=== PATIENT | female | born 1950 | race Caucasian/White ===

== ENCOUNTER → 2016-07-16 | Outpatient (CLI) | payer MEDICAID ==
[~2016-07-16] MED LIST: ALBU8.5H2 IH; AMIT25TA9 PO; AMLO10TA PO; AMLO10TA4 PO; AMLO10TA82 PO; ASPI-875 PO; ASPI-892 PO; ASPI-906 PO; ATOR40TA PO; BIOT10TA2 PO; BIOTIN 1000MCG PO; CIPR500T78 PO; COMMODE; CPR500T PO; ESTROGEN PO; FEXO-45 PO; FISH1CAP15 PO; FLUT1DIS28 IH; FURO20TA4 PO; GABA400C PO; GABA600T2 PO; GBPN300C PO; GBPN400C PO; HYDR1TAB66 PO; INSU100I23 SQ; INSU100V5 SQ; IRON150C13 PO; IRON150C3 PO; LEVE1U SQ; LIRA0.6P SQ; LISI1TAB10 PO; LOSA50TA36 PO; MELA1TAB20 PO; METO-333 PO; METO25TA2 PO; METO50TA2 PO; MILN100T PO; MULT-974 PO; MV,C400T3 PO; NFBIOT1000 PO; OMEG-9 PO; OXYC1TAB25 PO; PANT40TA PO; PNT40TEC PO; PNV91TAB3 PO; PRAV80TA2 PO; PRM25T PO; QUET50TA55 PO; RIVA20TA2 PO; Rivaroxaban PO; SLMFT1E INH; SUCR1TAB36 PO; TELM80TA3 PO; TORS100T14 PO; TORS100T4 PO; TORS20TA3 PO; TORS5TAB10 PO; TRAM50TA2 PO; TRAZ150T42 PO; TRET20CR14 TP; VENL150C PO; VENL150C53 PO; VERA240T98 PO; VNL75CCR PO; [UNRECOGNIZED DRUG - OTHER]; [UNRECOGNIZED DRUG - OTHER]; [UNRECOGNIZED DRUG - OTHER] PO; [UNRECOGNIZED DRUG - OTHER] PO
--- NOTE | 2016-07-16 18:28 | Diagnostic Imaging Report ---
Bilateral screening mammogram The current study was also evaluated with a Computer Aided Detection (CAD) system. INDICATION: Screening. No current complaints stated on the questionnaire. COMPARISON: 11/24/2012. FINDINGS: The breasts are composed of scattered fibroglandular densities. Numerous bilateral calcifications are seen. There is a biopsy clip in the right breast demonstrating a fibroadenoma on pathology. Allowing for technique and positional differences, no suspicious change is seen. IMPRESSION: No significant change. ACR BI-RADS Category 2: Benign findings. Result letter will be mailed to the patient. Note: At least 10% of breast cancer is not imaged by mammography. Dictated by: Dictated on workstation # [id number]
== END ==
LOC: RAD 10:52
PROVIDERS: ATTEND Nurse Practitioner Family
DX: Z12.31 Encounter for screening mammogram for malignant neoplasm of breast (principal)

== ENCOUNTER → 2016-10-17 | Outpatient (CLI) | payer MEDICAID ==
[2016-10-17 09:29] LABS: BILIRUBIN,URINE NEGATIVE (NEGATIVE); KETONES,URINE NEGATIVE (NEGATIVE); LEUKOCYTE ESTERASE ,URINE 3+ (NEGATIVE); NITRITE,URINE NEGATIVE (NEGATIVE); PH,URINE 6 (5-9); PROTEIN,URINE 2+ (NEGATIVE); UROBILINOGEN,URINE NORMAL (NORMAL)
[2016-10-17 09:32] LABS: BASOPHILS % (AUTO) 1 % (0-10); EOSINOPHILS # (AUTO) 0.3 10^3/uL (0.0-0.3); EOSINOPHILS % (AUTO) 3 % (0-10); LYMPHOCYTES # (AUTO) 2.2 X 10^3 (1.0-4.0); LYMPHOCYTES % (AUTO) 25 % (12-44); MEAN CORPUSCULAR HEMOGLOBIN 29 PG (25-34); MEAN CORPUSCULAR HGB CONC 31 G/DL (32-36); MEAN CORPUSCULAR VOLUME 94 FL (80-99); MEAN PLATELET VOLUME 11.3 FL (7.4-10.4); MONOCYTES # (AUTO) 0.8 X 10^3 (0.0-1.0); MONOCYTES % (AUTO) 9 % (0-12); NEUTROPHILS # (AUTO) 5.5 X 10^3 (1.8-7.8); NEUTROPHILS % (AUTO) 62 % (42-75); PLATELET COUNT 186 10^3/uL (130-400); RED CELL DISTRIBUTION WIDTH 13.6 % (10.0-14.5); WHITE BLOOD COUNT 8.9 10^3/uL (4.3-11.0)
[2016-10-17 09:42] LABS: WBC,URINE TNTC /HPF
[2016-10-17 09:51] LABS: ALBUMIN 3.9 G/DL (3.2-4.5); CALCIUM 9.5 MG/DL (8.5-10.1); CREATININE SERUM 1.99 MG/DL (0.60-1.30); MAGNESIUM 2.1 MG/DL (1.8-2.4); PHOSPHORUS 3.6 MG/DL (2.3-4.7); URIC ACID 11.7 MG/DL (2.6-7.2)
[2016-10-17 09:52] LABS: PROTEIN/CREATININE RATIO 0.32
[2016-10-18 19:12] LABS: %SAT TOTAL IRON BINDING CAPIC 28 % (15-50); TIBC 356 ug/dL (280-380)
[2016-10-19 07:21] LABS: CALCIUM PARA THYROID HORMONE 9.3 mg/dL (8.5-10.5); FERRITIN 77.4 ng/mL (15.0-150.0); FOLIC ACID >24.0 ng/mL (1.5-24.0); UIBC 256 ug/dL (55-450)
[2016-10-19 17:09] LABS: VITAMIN D 25-HYDROXY (TOTAL) 48 ng/mL (30-100)
[2016-10-19 17:50] LABS: PTH INTACT IRMA 108 pg/mL (10-65)
== END ==
LOC: LAB 08:37
PROVIDERS: ATTEND Internal Medicine Nephrology
DX: N18.4 Chronic kidney disease, stage 4 (severe) (principal); D64.9 Anemia, unspecified
CPT/HCPCS: 36415; 80069; 81000; 82306; 82570; 82607; 82728; 82746; 83540; 83735; 83970; 84156; 84550; 85025; 87077; 87088; 87186

== ENCOUNTER → 2016-12-10 | Outpatient (CLI) | payer MEDICAID ==
[2016-12-10 09:46] LABS: BASOPHILS % (AUTO) 1 % (0-10); EOSINOPHILS # (AUTO) 0.3 10^3/uL (0.0-0.3); EOSINOPHILS % (AUTO) 3 % (0-10); LYMPHOCYTES # (AUTO) 1.5 X 10^3 (1.0-4.0); LYMPHOCYTES % (AUTO) 20 % (12-44); MEAN CORPUSCULAR HEMOGLOBIN 30 PG (25-34); MEAN CORPUSCULAR HGB CONC 31 G/DL (32-36); MEAN CORPUSCULAR VOLUME 95 FL (80-99); MEAN PLATELET VOLUME 11.5 FL (7.4-10.4); MONOCYTES # (AUTO) 0.5 X 10^3 (0.0-1.0); MONOCYTES % (AUTO) 7 % (0-12); NEUTROPHILS # (AUTO) 5.1 X 10^3 (1.8-7.8); NEUTROPHILS % (AUTO) 69 % (42-75); PLATELET COUNT 203 10^3/uL (130-400); RED BLOOD COUNT 3.92 10^6/uL (4.35-5.85); RED CELL DISTRIBUTION WIDTH 13.3 % (10.0-14.5); WHITE BLOOD COUNT 7.4 10^3/uL (4.3-11.0)
[2016-12-10 09:53] LABS: BILIRUBIN,URINE NEGATIVE (NEGATIVE); KETONES,URINE NEGATIVE (NEGATIVE); LEUKOCYTE ESTERASE ,URINE 1+ (NEGATIVE); NITRITE,URINE NEGATIVE (NEGATIVE); PH,URINE 6 (5-9); PROTEIN,URINE 2+ (NEGATIVE); UROBILINOGEN,URINE NORMAL (NORMAL)
[2016-12-10 10:08] LABS: ALBUMIN 3.5 G/DL (3.2-4.5); CALCIUM 9.3 MG/DL (8.5-10.1); CREATININE SERUM 1.64 MG/DL (0.60-1.30); PHOSPHORUS 2.8 MG/DL (2.3-4.7)
[2016-12-10 10:11] LABS: PROTEIN/CREATININE RATIO 0.25
[2016-12-11 07:19] LABS: CALCIUM PARA THYROID HORMONE 8.9 mg/dL (8.5-10.5)
== END ==
LOC: LAB 09:18
PROVIDERS: ATTEND Internal Medicine Nephrology
DX: I12.9 Hypertensive chronic kidney disease with stage 1 through stage 4 chronic kidney disease, or unspecified chronic kidney disease (principal); N18.4 Chronic kidney disease, stage 4 (severe); R60.9 Edema, unspecified; E88.9 Metabolic disorder, unspecified
CPT/HCPCS: 36415; 80069; 81000; 82306; 82570; 83970; 84156; 85025; 87088

== ENCOUNTER → 2017-01-14 | Outpatient (CLI) | payer MEDICAID ==
[2017-01-14 13:00] LABS: BILIRUBIN,URINE NEGATIVE (NEGATIVE); KETONES,URINE NEGATIVE (NEGATIVE); LEUKOCYTE ESTERASE ,URINE 1+ (NEGATIVE); NITRITE,URINE NEGATIVE (NEGATIVE); PH,URINE 5 (5-9); PROTEIN,URINE 2+ (NEGATIVE); UROBILINOGEN,URINE NORMAL (NORMAL)
[2017-01-14 13:07] LABS: BASOPHILS % (AUTO) 0 % (0-10); EOSINOPHILS # (AUTO) 0.3 10^3/uL (0.0-0.3); EOSINOPHILS % (AUTO) 3 % (0-10); LYMPHOCYTES # (AUTO) 2.7 X 10^3 (1.0-4.0); LYMPHOCYTES % (AUTO) 24 % (12-44); MEAN CORPUSCULAR HEMOGLOBIN 29 PG (25-34); MEAN CORPUSCULAR HGB CONC 31 G/DL (32-36); MEAN CORPUSCULAR VOLUME 96 FL (80-99); MEAN PLATELET VOLUME 11.5 FL (7.4-10.4); MONOCYTES # (AUTO) 1.1 X 10^3 (0.0-1.0); MONOCYTES % (AUTO) 10 % (0-12); NEUTROPHILS # (AUTO) 7.1 X 10^3 (1.8-7.8); NEUTROPHILS % (AUTO) 63 % (42-75); PLATELET COUNT 210 10^3/uL (130-400); RED BLOOD COUNT 4.12 10^6/uL (4.35-5.85); RED CELL DISTRIBUTION WIDTH 13.4 % (10.0-14.5); WHITE BLOOD COUNT 11.2 10^3/uL (4.3-11.0)
[2017-01-14 13:32] LABS: PROTEIN/CREATININE RATIO 0.18
[2017-01-14 13:36] LABS: ALBUMIN 3.8 GM/DL (3.2-4.5); CALCIUM 9.8 MG/DL (8.5-10.1); CREATININE SERUM 2.07 MG/DL (0.60-1.30); PHOSPHORUS 3.1 MG/DL (2.3-4.7); POTASSIUM 4.1 MMOL/L (3.6-5.0)
[2017-01-15 06:56] LABS: CALCIUM PARA THYROID HORMONE 9.6 mg/dL (8.5-10.5)
== END ==
LOC: LAB 12:28
PROVIDERS: ATTEND Internal Medicine Nephrology
DX: I12.9 Hypertensive chronic kidney disease with stage 1 through stage 4 chronic kidney disease, or unspecified chronic kidney disease (principal); N18.4 Chronic kidney disease, stage 4 (severe); R60.9 Edema, unspecified; E88.9 Metabolic disorder, unspecified
CPT/HCPCS: 36415; 80069; 81000; 82306; 82570; 83970; 84156; 85025; 87088

== ENCOUNTER → 2017-03-28 | Outpatient (CLI) | payer MEDICAID ==
[2017-03-28 11:58] LABS: BASOPHILS % (AUTO) 0 % (0-10); EOSINOPHILS # (AUTO) 0.4 10^3/uL (0.0-0.3); EOSINOPHILS % (AUTO) 4 % (0-10); LYMPHOCYTES % (AUTO) 20 % (12-44); MEAN CORPUSCULAR HEMOGLOBIN 29 PG (25-34); MEAN CORPUSCULAR HGB CONC 31 G/DL (32-36); MEAN CORPUSCULAR VOLUME 96 FL (80-99); MEAN PLATELET VOLUME 11.4 FL (7.4-10.4); MONOCYTES # (AUTO) 0.8 X 10^3 (0.0-1.0); MONOCYTES % (AUTO) 8 % (0-12); NEUTROPHILS # (AUTO) 6.6 X 10^3 (1.8-7.8); NEUTROPHILS % (AUTO) 67 % (42-75); PLATELET COUNT 194 10^3/uL (130-400); RED BLOOD COUNT 4.06 10^6/uL (4.35-5.85); RED CELL DISTRIBUTION WIDTH 13.1 % (10.0-14.5); WHITE BLOOD COUNT 9.8 10^3/uL (4.3-11.0)
[2017-03-28 12:08] LABS: BILIRUBIN,URINE NEGATIVE (NEGATIVE); KETONES,URINE NEGATIVE (NEGATIVE); LEUKOCYTE ESTERASE ,URINE 1+ (NEGATIVE); NITRITE,URINE NEGATIVE (NEGATIVE); PH,URINE 6 (5-9); PROTEIN,URINE 3+ (NEGATIVE); UROBILINOGEN,URINE NORMAL (NORMAL)
[2017-03-28 12:21] LABS: WBC,URINE 0-2 /HPF
[2017-03-28 12:23] LABS: ALBUMIN 3.7 GM/DL (3.2-4.5); CALCIUM 9.7 MG/DL (8.5-10.1); CREATININE SERUM 1.54 MG/DL (0.60-1.30); PHOSPHORUS 3.2 MG/DL (2.3-4.7); POTASSIUM 4.5 MMOL/L (3.6-5.0)
[2017-03-28 12:27] LABS: PROTEIN/CREATININE RATIO 0.64
[2017-03-29 09:01] LABS: CALCIUM PARA THYROID HORMONE 9.6 mg/dL (8.5-10.5); PTH INTACT IRMA 36.9 pg/mL (10.0-65.0)
== END ==
LOC: LAB 11:11
PROVIDERS: ATTEND Internal Medicine Nephrology
DX: I12.9 Hypertensive chronic kidney disease with stage 1 through stage 4 chronic kidney disease, or unspecified chronic kidney disease (principal); N18.4 Chronic kidney disease, stage 4 (severe); R60.0 Localized edema; E88.9 Metabolic disorder, unspecified
CPT/HCPCS: 36415; 80069; 81000; 82570; 83970; 84156; 85025

== ENCOUNTER → 2017-04-21 | Outpatient (CLI) | payer MEDICAID ==
[2017-04-21 10:26] LABS: BASOPHILS % (AUTO) 0 % (0-10); EOSINOPHILS # (AUTO) 0.3 10^3/uL (0.0-0.3); EOSINOPHILS % (AUTO) 4 % (0-10); LYMPHOCYTES # (AUTO) 1.6 X 10^3 (1.0-4.0); LYMPHOCYTES % (AUTO) 21 % (12-44); MEAN CORPUSCULAR HEMOGLOBIN 29 PG (25-34); MEAN CORPUSCULAR HGB CONC 30 G/DL (32-36); MEAN CORPUSCULAR VOLUME 96 FL (80-99); MEAN PLATELET VOLUME 11.1 FL (7.4-10.4); MONOCYTES # (AUTO) 0.5 X 10^3 (0.0-1.0); MONOCYTES % (AUTO) 7 % (0-12); NEUTROPHILS # (AUTO) 5.3 X 10^3 (1.8-7.8); NEUTROPHILS % (AUTO) 68 % (42-75); PLATELET COUNT 192 10^3/uL (130-400); RED BLOOD COUNT 3.87 10^6/uL (4.35-5.85); RED CELL DISTRIBUTION WIDTH 13.4 % (10.0-14.5); WHITE BLOOD COUNT 7.8 10^3/uL (4.3-11.0)
[2017-04-21 10:35] LABS: BILIRUBIN,URINE NEGATIVE (NEGATIVE); KETONES,URINE NEGATIVE (NEGATIVE); LEUKOCYTE ESTERASE ,URINE 2+ (NEGATIVE); NITRITE,URINE NEGATIVE (NEGATIVE); PH,URINE 6 (5-9); PROTEIN,URINE 1+ (NEGATIVE); UROBILINOGEN,URINE NORMAL (NORMAL)
[2017-04-21 10:59] LABS: ALBUMIN 3.6 GM/DL (3.2-4.5); CALCIUM 9.1 MG/DL (8.5-10.1); CREATININE SERUM 1.77 MG/DL (0.60-1.30); PHOSPHORUS 2.4 MG/DL (2.3-4.7); URIC ACID 7.9 MG/DL (2.6-7.2)
[2017-04-21 11:01] LABS: PROTEIN/CREATININE RATIO 0.33
[2017-04-21 14:28] LABS: %SAT TOTAL IRON BINDING CAPIC 16 % (15-50); TIBC 354 ug/dL (280-380)
[2017-04-21 15:58] LABS: UIBC 299 ug/dL (55-450)
[2017-04-22 07:22] LABS: CALCIUM PARA THYROID HORMONE 8.9 mg/dL (8.5-10.5); FOLIC ACID >24.0 ng/mL (1.5-24.0); VITAMIN D 25-HYDROXY (TOTAL) 60 ng/mL (30-100)
== END ==
LOC: LAB 10:00
PROVIDERS: ATTEND Internal Medicine Nephrology
DX: I12.9 Hypertensive chronic kidney disease with stage 1 through stage 4 chronic kidney disease, or unspecified chronic kidney disease (principal); N18.3 Chronic kidney disease, stage 3 (moderate); E11.9 Type 2 diabetes mellitus without complications; R60.9 Edema, unspecified
CPT/HCPCS: 36415; 80069; 81000; 82306; 82570; 82607; 82728; 82746; 83540; 83735; 83970; 84156; 84550; 85025; 87077; 87088; 87186

== ENCOUNTER → 2017-08-21 | Outpatient (CLI) | payer MEDICAID ==
[2017-08-21 12:01] LABS: BASOPHILS % (AUTO) 0 % (0-10); EOSINOPHILS # (AUTO) 0.4 10^3/uL (0.0-0.3); EOSINOPHILS % (AUTO) 4 % (0-10); HEMATOCRIT 35 % (35-52); LYMPHOCYTES # (AUTO) 1.5 X 10^3 (1.0-4.0); LYMPHOCYTES % (AUTO) 16 % (12-44); MEAN CORPUSCULAR HEMOGLOBIN 30 PG (25-34); MEAN CORPUSCULAR HGB CONC 31 G/DL (32-36); MEAN CORPUSCULAR VOLUME 96 FL (80-99); MEAN PLATELET VOLUME 11.1 FL (7.4-10.4); MONOCYTES # (AUTO) 0.8 X 10^3 (0.0-1.0); MONOCYTES % (AUTO) 9 % (0-12); NEUTROPHILS # (AUTO) 6.5 X 10^3 (1.8-7.8); NEUTROPHILS % (AUTO) 70 % (42-75); PLATELET COUNT 194 10^3/uL (130-400); RED BLOOD COUNT 3.65 10^6/uL (4.35-5.85); RED CELL DISTRIBUTION WIDTH 13.4 % (10.0-14.5); WHITE BLOOD COUNT 9.2 10^3/uL (4.3-11.0)
[2017-08-21 12:07] LABS: BILIRUBIN,URINE NEGATIVE (NEGATIVE); CLARITY,URINE SLIGHTLY CLOUDY; COLOR,URINE YELLOW; GLUCOSE, URINE (UA) NEGATIVE (NEGATIVE); KETONES,URINE NEGATIVE (NEGATIVE); LEUKOCYTE ESTERASE ,URINE 1+ (NEGATIVE); NITRITE,URINE NEGATIVE (NEGATIVE); PH,URINE 6 (5-9); PROTEIN,URINE 3+ (NEGATIVE); UROBILINOGEN,URINE NORMAL (NORMAL)
[2017-08-21 12:19] LABS: ALBUMIN 3.4 GM/DL (3.2-4.5); CALCIUM 8.6 MG/DL (8.5-10.1); CREATININE SERUM 1.72 MG/DL (0.60-1.30); MAGNESIUM 2.3 MG/DL (1.8-2.4); PHOSPHORUS 3.4 MG/DL (2.3-4.7); POTASSIUM 4.5 MMOL/L (3.6-5.0); URIC ACID 7.5 MG/DL (2.6-7.2)
[2017-08-21 12:25] LABS: BACTERIA,URINE FEW /HPF
== END ==
LOC: LAB 11:29
PROVIDERS: ATTEND Internal Medicine Nephrology
DX: I12.9 Hypertensive chronic kidney disease with stage 1 through stage 4 chronic kidney disease, or unspecified chronic kidney disease (principal); N18.3 Chronic kidney disease, stage 3 (moderate); R60.9 Edema, unspecified; E11.9 Type 2 diabetes mellitus without complications
CPT/HCPCS: 36415; 80069; 81000; 82306; 82570; 83735; 83970; 84156; 84550; 85025; 87088

== ENCOUNTER → 2017-09-22 | Outpatient (CLI) | payer MEDICARE, MEDICAID | LOC: CARD 11:46 | PROVIDERS: ATTEND Physician Assistant | DX: R06.02 Shortness of breath (principal); J44.9 Chronic obstructive pulmonary disease, unspecified | CPT/HCPCS: 93306 ==

== ENCOUNTER → 2017-09-29 | Outpatient (CLI) | payer MEDICARE, MEDICAID ==
[~2017-09-29] MED LIST changes: +CATHETER FLUSH 10 ML SYR IV PRN; +REGADENOSON 0.4 MG/5 ML SYR (LEXISCAN) IV ONE
[2017-09-29 09:19] VITALS: BP 143/71
[2017-09-29 09:25] VITALS: BP 153/71
--- NOTE | 2017-09-29 17:21 | STRESS TEST ---
DATE OF SERVICE: 09/29/2017 LEXISCAN MYOVIEW STRESS TEST REPORT Baseline heart rate is 83, baseline blood pressure 179/64. Baseline EKG is sinus rhythm with no ischemic changes. In summary, the patient was injected with 10.97 mCi of technetium-99 Myoview and the resting images were obtained. Then, the patient received 0.4 mg of Lexiscan followed by 30.4 mCi of technetium-99 Myoview. Throughout the test, there were no EKG changes. The resting and stress images were reviewed and compared in the short axis, horizontal long axis, and vertical long axis views. Review of the images showed breast attenuation with reversible ischemia involving the whole anterior wall, anterolateral wall and anterior septum. SSS is 15. SDS 13. TID value 0.94. On the gated images, the left ventricle appeared to be in normal size with normal contractility. Calculated ejection fraction 55%. CONCLUSION: 1. The patient tolerated Lexiscan well. 2. Breast attenuation with reversible ischemia involving the whole anterior wall, anterior septum and anterior lateral wall. 3. Normal left ventricular size with normal contractility. Calculated ejection fraction 55%. Job ID: [id number] DocumentID: [id number] Dictated Date: 09/29/2017 15:15:32 Yard Crane Operator Date: 09/29/2017 17:20:51 Dictated By: LUCILA ESCOBEDO MD
== END ==
LOC: CARD 07:18
PROVIDERS: ATTEND Physician Assistant
DX: R06.02 Shortness of breath (principal); J44.9 Chronic obstructive pulmonary disease, unspecified
CPT/HCPCS: 78452; 93017

== ENCOUNTER 2017-10-06 06:56 | Day surgery (SDC) | payer MEDICARE, MEDICAID ==
[2017-10-06] VITALS (9 sets, daily range): BP systolic 129–206; BP diastolic 69–117
[~2017-10-06] VITALS: Ht 162.6 cm; Wt 162.9 kg
[~2017-10-06 06:56] MED LIST changes: -CATHETER FLUSH 10 ML SYR IV PRN; -REGADENOSON 0.4 MG/5 ML SYR (LEXISCAN) IV ONE
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
--- OUTSIDE RECORDS SUMMARY | 2017-10-06 06:59 | XMS REPORT ---
Author Author CHELSY VILLAFANA [facility] Address [address] [place] [address] Care Team Providers Care Supervisor Feed Mill Name Role Phone CHELSY VILLAFANA Unavailable PROBLEMS Type Condition ICD9-CM Code LEO69-SG Code Onset Dates Condition Status SNOMED Code Problem Sleep apnea in adult G47.33 Active 31328809 Problem Primary insomnia F51.01 Active 7766594 Problem Chronic pain syndrome G89.4 Active 774952358 Problem [facility] (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 Active 795746105 Problem Anemia in other chronic diseases classified elsewhere D63.8 Active 748941926 Problem [facility] 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 Active 154168900 Problem Right carpal tunnel syndrome G56.01 Active 011962300957271 Problem 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 Active 390319060366506 Problem Chronic kidney disease, stage 4 (severe) N18.4 Active 884143454 Problem Type 2 diabetes mellitus with hyperglycemia E11.65 Active 354242074417767 Problem Psoriasis of scalp L40.9 Active 058514503 Problem Paresthesia of right upper extremity R20.2 Active 97583633 Problem Iron deficiency anemia due to chronic blood loss D50.0 Active 33229963 Problem Gastroesophageal reflux disease without esophagitis K21.9 Active 222170158 Problem Type 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 Active 823530741 Problem Diabetic 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 Active 07605575 Problem [facility] 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 Active 394843820 Problem Essential hypertension I10 Active 49172873 Problem Chronic obstructive pulmonary disease, unspecified COPD type J44.9 Active 08949045 Problem Oxygen desaturation during sleep G47.34 Active 069547340 Problem History of DVT (deep vein thrombosis) Z86.718 Active 181997377 Problem Depression, unspecified depression type F32.9 Active 94082598 ALLERGIES Unknown Allergies SOCIAL HISTORY No smoking Hx information available PLAN OF CARE VITAL SIGNS MEDICATIONS Medication Instructions Dosage Frequency Start Date End Date Duration Status Tresiba FlexTouch 200 UNIT/ML ICD10- E11.29 daily 100 units 24h Jul, Active RESULTS No Results PROCEDURES No Known procedures IMMUNIZATIONS No Known Immunizations
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
--- OUTSIDE RECORDS SUMMARY | 2017-10-06 06:59 | XMS REPORT ---
Author Author KATLYN SAXENA [facility] [employer] Address Unknown Phone Unavailable Care Team Providers Care Fuel Injection Servicer Name Role Phone KATLYN SAXENA Unavailable Allergies No Known Allergies Problems Problem Type Condition Code Onset Dates Condition Status Problem Diabetes type 2, uncontrolled E11.65 Active Problem Depression F32.9 Active Problem Type 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 Active Problem Anemia in other chronic diseases classified elsewhere D63.8 Active Medications Medication Code System Code Instructions Start Date End Date Status Dosage Victoza [facility] [address]-17 0.6 mg/0.1 mL (18 mg/3 mL) Subcutaneous Once a day Mar 08, 2014 1.8 mg Results No Known Results Summary Purpose eClinicalWorks Submission
--- OUTSIDE RECORDS SUMMARY | 2017-10-06 06:59 | XMS REPORT ---
Author Author CHELSY VILLAFANA [facility] Address [address] [place] [address] Care Team Providers Care Track Repair Laborer Name Role Phone CHELSY VILLAFANA Unavailable PROBLEMS Type Condition ICD9-CM Code ZAG35-OX Code Onset Dates Condition Status SNOMED Code Problem Gastroesophageal reflux disease without esophagitis K21.9 Active 778451487 Problem Oxygen desaturation during sleep G47.34 Active 678762856 Problem Sleep apnea in adult G47.33 Active 67312269 Problem Diabetic 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 Active 29775647 Problem Iron deficiency anemia due to chronic blood loss D50.0 Active 38645754 Problem History of DVT (deep vein thrombosis) Z86.718 Active 467775738 Problem Chronic pain syndrome G89.4 Active 316621329 Problem Chronic obstructive pulmonary disease, unspecified COPD type J44.9 Active 23895774 Problem intermediate 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 Active 915276685 Problem Type 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 Active 259522805 Problem Depression, unspecified depression type F32.9 Active 18158497 Problem Anemia in other chronic diseases classified elsewhere D63.8 Active 295668037 Problem Primary insomnia F51.01 Active 3829938 Problem Diabetes type 2, uncontrolled E11.65 Active 571058582 Problem Essential hypertension I10 Active 12013954 ALLERGIES Unknown Allergies SOCIAL HISTORY No smoking Hx information available PLAN OF CARE VITAL SIGNS MEDICATIONS Medication Instructions Dosage Frequency Start Date End Date Duration Status Seroquel 50 mg Orally Once a day at bedtime 1 tablet Active RESULTS No Results PROCEDURES No Known procedures IMMUNIZATIONS No Known Immunizations
--- OUTSIDE RECORDS SUMMARY | 2017-10-06 06:59 | XMS REPORT ---
Author Author CHELSY VILLAFANA Organization [employer] Address Unknown Phone Unavailable Care Team Providers Care Prisoner Classification Interviewer Name Role Phone CHELSY VILLAFANA CP Unavailable Allergies No Known Allergies Problems Problem Type Condition Code Onset Dates Condition Status Problem Essential hypertension I10 Active Problem Sleep apnea in adult G47.33 Active Problem Gastroesophageal reflux disease without esophagitis K21.9 Active Problem Iron deficiency anemia due to chronic blood loss D50.0 Active Problem Chronic obstructive pulmonary disease, unspecified COPD type J44.9 Active Problem Diabetic 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 Active Problem Chronic pain syndrome G89.4 Active Problem Oxygen desaturation during sleep G47.34 Active Problem [facility] 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 Active Problem History of DVT (deep vein thrombosis) Z86.718 Active Problem Diabetes type 2, uncontrolled E11.65 Active Problem Type 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 Active Problem Depression, unspecified depression type F32.9 Active Problem Anemia in other chronic diseases classified elsewhere D63.8 Active Problem Primary insomnia F51.01 Active Medications Medication Code System Code Instructions Start Date End Date Status Dosage Levemir [facility] [id number] 100 UNIT/ML Subcutaneous 2 times a day 95 Units Results No Known Results Summary Purpose eClinicalWorks Submission
--- OUTSIDE RECORDS SUMMARY | 2017-10-06 06:59 | XMS REPORT ---
Author Author KATLYN SAXENA [employer] Address Unknown Phone Unavailable Care Team Providers Care Head Of Sales And Marketing Name Role Phone KATLYN SAXENA Unavailable Allergies, Adverse Reactions, Alerts Substance Reaction Event Type Sulfacet-R Info Not Available Drug Allergy Penicillin G Sodium Info Not Available Drug Allergy Problems Problem Type Condition Code Onset Dates Condition Status Assessment Essential hypertension I10 Active Problem Diabetes type 2, uncontrolled E11.65 Active Problem Depression F32.9 Active Problem Type 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 Active Assessment Type 2 diabetes mellitus with hyperglycemia E11.65 Active Assessment Morbid obesity due to excess calories E66.01 Active Problem Anemia in other chronic diseases classified elsewhere D63.8 Active Assessment Type 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 Active Medications Medication Code System Code Instructions Start Date End Date Status Dosage Savella [facility] [address]-45 100 MG Orally Twice a day Feb 13, 2015 1 tablet Glucometer [place] 0 ... DX: 250.40 Apr 17, 2015 as directed Multivitamin [facility] 85291-59044 Orally Once a day December 10, 2011 1 tablet Melatonin [facility] 97856-22568 10 mg December 10, 2011 2 Tablet by Oral route 1 time per dayat bedtime iFerex 150 [facility] [address]-00 150 MG Orally 3 times a day 1 capsule Verapamil HCl CR [facility] [address]-26 240 MG Orally Once a day in the morning with food February 01, 2015 1 tablet Fish Oil Concentrate [facility] 58650-40944 1000 MG Orally Twice a day. 2 in AM, 1 in PM Apr 12, 2012 1 capsule Trazodone HCl [facility] [address]-24 150 MG Orally Once a day at bedtime as needed December 17, 2014 1 tablet Victoza [facility] [address]-49 0.6 mg/0.1 mL (18 mg/3 mL) Subcutaneous Once a day Mar 08, 2014 1.8 mg Test strips ND 0 ... 3 times a day, DX: 250.40 Apr 17, 2015 True Test Tretinoin [facility] [address]-03 0.025 % May 24, 2014 1 Application by Topical route 1 time per day Biotin [facility] 32702-41593 1000 MCG Orally Once a day 1 tablet Xarelto [facility] [address]-21 20 MG Orally Once a day 1 tablet with food Torsemide [facility] [address]-96 100 MG Orally Once a day 1/2 tablet Gabapentin [facility] [address]-88 600 MG Orally Three times a day Aug 16, 2014 take 1 tablet Cozaar [facility] [address]-01 50 MG Orally Once a day Apr 15, 2015 1 tablet Seroquel [facility] [address]-76 50 MG Orally Once a day Apr 15, 2015 1 tablet at bedtime Levemir [facility] [address]-94 100 UNIT/ML Subcutaneous 2 times a day September 13, 2014 95 Units Lipitor [facility] [address]-97 40 MG Orally Once a day 1 tablet Albuterol Sulfate [facility] [address]-36 90 mcg/actuation January 22, 2014 2 puffs by Inhalation route every 4-6 hours as needed PRN cough or wheezing Humalog [facility] [address]-06 100 UNIT/ML Subcutaneous 3 times a day Apr 17, 2015 10 units Advair Diskus [facility] [address]-19 100 mcg-50 mcg Mar 08, 2014 1 puffs by Inhalation route 2 times per day (rinse mouth and throat after use) Protonix [facility] [address]-61 40 MG Orally Once a day Jun 06, 2014 1 tablet Procedures Procedure Coding System Code Date Office Visit, Est Pt., Level 3 CPT-4 36918 Jun 03, 2015 Vital Signs Date/Time: Jun 03, 2015 Temperature 98.4 F Weight 323.2 lbs Height 64 in BMI 55.47 Index Blood Pressure Diastolic 70 mmHg Blood Pressure Systolic 200 mmHg Cardiac Monitoring Heart Rate 116 bpm Results No Known Results Summary Purpose eClinicalWorks Submission
--- OUTSIDE RECORDS SUMMARY | 2017-10-06 07:01 | XMS REPORT ---
Author Author KATLYN SAXENA [employer] Address Unknown Phone Unavailable Care Team Providers Care Saddle Maker Name Role Phone KATLYN SAXENA CP Unavailable Allergies, Adverse Reactions, Alerts Substance Reaction Event Type Sulfacet-R Info Not Available Drug Allergy Penicillin G Sodium Info Not Available Drug Allergy Problems Problem Type Condition Code Onset Dates Condition Status Problem Diabetes type 2, uncontrolled E11.65 Active Problem Depression F32.9 Active Problem Type 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 Active Assessment Disorder of the skin and subcutaneous tissue, unspecified L98.9 Active Problem Anemia in other chronic diseases classified elsewhere D63.8 Active Assessment Hair loss L65.9 Active Medications Medication Code System Code Instructions Start Date End Date Status Dosage Victoza [facility] [address]-94 0.6 mg/0.1 mL (18 mg/3 mL) Subcutaneous Once a day Mar 08, 2014 1.8 mg Trazodone HCl [facility] [address]-89 150 MG Orally Once a day at bedtime as needed December 17, 2014 1 tablet Multivitamin [facility] 48338-51205 Orally Once a day December 10, 2011 1 tablet Protonix [facility] [address]-12 40 MG Orally Once a day Jun 06, 2014 1 tablet iFerex 150 [facility] [address]-80 150 MG Orally 3 times a day 1 capsule Savella [facility] [address]-30 100 MG Orally Twice a day Feb 13, 2015 1 tablet Biotin [facility] 59719-30856 1000 MCG Orally Once a day 1 tablet Cozaar [facility] [address]-10 50 MG Orally Once a day Apr 15, 2015 1 tablet Advair Diskus [facility] [address]-57 100 mcg-50 mcg Mar 08, 2014 1 puffs by Inhalation route 2 times per day (rinse mouth and throat after use) Test strips [facility] 0 ... 3 times a day, DX: 250.40 Apr 17, 2015 True Test Fish Oil Concentrate [facility] [address]17-18016 1000 MG Orally Twice a day. 2 in AM, 1 in PM Apr 12, 2012 1 capsule Humalog [facility] [address]-22 100 UNIT/ML Subcutaneous 3 times a day Apr 17, 2015 10 units Torsemide [facility] [address]-95 100 MG Orally Once a day 1/2 tablet Seroquel [facility] [address]-47 50 MG Orally Once a day Apr 15, 2015 1 tablet at bedtime Gabapentin [facility] [address]-43 600 MG Orally Three times a day Aug 16, 2014 take 1 tablet Melatonin [facility] [address]6774-29894 10 mg December 10, 2011 2 Tablet by Oral route 1 time per dayat bedtime Tretinoin [facility] [address]-45 0.025 % May 24, 2014 1 Application by Topical route 1 time per day Lipitor [facility] [address]-67 40 MG Orally Once a day 1 tablet Verapamil HCl CR [facility] [address]-47 240 MG Orally Once a day in the morning with food February 01, 2015 1 tablet Albuterol Sulfate [facility] [address]-19 90 mcg/actuation January 22, 2014 2 puffs by Inhalation route every 4-6 hours as needed PRN cough or wheezing Glucometer [facility] 0 ... DX: 250.40 Apr 17, 2015 as directed Levemir [facility] [address]-52 100 UNIT/ML Subcutaneous 2 times a day September 13, 2014 95 Units Xarelto [facility] [address]-20 20 MG Orally Once a day 1 tablet with food Procedures Procedure Coding System Code Date VENIPUNCT, ROUTINE* CPT-4 34988 Jun 05, 2015 EXC TR-EXT B9 CALVIN 0.5 < CM CPT-4 86062 Jun 05, 2015 ASSAY THYROID STIM HORMONE CPT-4 53074 Jun 05, 2015 Vital Signs Date/Time: Jun 05, 2015 Cardiac Monitoring Heart Rate 92 bpm Temperature 97.8 F Height 64 in Blood Pressure Diastolic 70 mmHg Blood Pressure Systolic 136 mmHg Results No Known Results Summary Purpose eClinicalWorks Submission
--- OUTSIDE RECORDS SUMMARY | 2017-10-06 07:01 | XMS REPORT ---
Author Author KATLYN SAXENA [employer] Address Unknown Phone Unavailable Care Team Providers Care Bait Painter Name Role Phone KATLYN SAXENA Unavailable Allergies, Adverse Reactions, Alerts Substance Reaction Event Type Sulfacet-R Info Not Available Drug Allergy Penicillin G Sodium Info Not Available Drug Allergy Problems Problem Type Condition ICD-9 Code Onset Dates Condition Status Assessment Depression 311 Active Problem Other and unspecified hyperlipidemia 272.4 Active Problem Other follow-up examination V67.59 Active Assessment Diabetes with renal manifestations, type II or unspecified type, not stated as uncontrolled 250.40 Active Assessment Other chronic pain 338.29 Active Problem Other chronic pain 338.29 Active [...] Chronic kidney disease, unspecified 585.9 Active Medications Medication Code System Code Instructions Start Date End Date Status Dosage Savella [facility] [place] [address]-99 100 MG Orally Twice a day Feb 13, 2015 Mar 31, 2015 1 tablet Victoza [facility] [place] [address]-02 0.6 mg/0.1 mL (18 mg/3 mL) Subcutaneous Once a day Mar 08, 2014 1.8 mg Albuterol Sulfate [facility] [place] [address]-88 90 mcg/actuation January 22, 2014 2 puffs by Inhalation route every 4-6 hours as needed PRN cough or wheezing Tretinoin [facility] [place] [address]-06 0.025 % May 24, 2014 1 Application by Topical route 1 time per day Pravastatin Sodium [facility] [place] [address]-40 80 MG Orally Once a day December 17, 2014 1 tablet Protonix [facility] [place] [address]-77 40 MG Orally Once a day Jun 06, 2014 1 tablet Fish Oil Concentrate [facility] [place] [address] 1000 mg Orally Twice a day 2 caps in AM 1 caps in PM Apr 12, 2012 1 capsule Advair Diskus [facility] [place] [address]-81 100 mcg-50 mcg Mar 08, 2014 1 puffs by Inhalation route 2 times per day (rinse mouth and throat after use) Trazodone HCl [facility] [place] [address]-64 150 MG Orally Once a day at bedtime as needed December 17, 2014 1 tablet Torsemide [facility] [place] [address]-57 100 MG Orally Once a day 1/2 tablet iFerex 150 [facility] [place] [address]-37 150 MG Orally 3 times a day 1 capsule Verapamil HCl CR [facility] [place] [address]-49 240 MG Orally Once a day in the morning with food February 01, 2015 1 tablet Xarelto [facility] [place] [address]-25 20 MG Orally Once a day 1 tablet with food Levemir [facility] [place] [address]-52 100 UNIT/ML Subcutaneous 2 times a day September 13, 2014 95 Units Gabapentin [facility] [place] [address]-86 600 MG Orally Three times a day Aug 16, 2014 take 1 tablet Melatonin [facility] [place] [address] 10 mg December 10, 2011 2 Tablet by Oral route 1 time per dayat bedtime Multivitamin [facility] [place] [address] December 10, 2011 2 Tablet by Oral route 1 Fexofenadine HCl [facility] [place] [address]-19 180 MG Orally Once a day Feb 13, 2015 May 14, 2015 1 tablet Procedures Procedure Coding System Code Date Office Visit, Est Pt., Level 3 CPT-4 95986 Mar 01, 2015 Vital Signs Date/Time: Mar 01, 2015 Temperature 98.5 F Weight 326 lbs Height 64 in BMI 55.95 Index Blood Pressure Diastolic 84 mmHg Blood Pressure Systolic 138 mmHg Cardiac Monitoring Heart Rate 92 bpm Results No Known Results Summary Purpose [employer] Submission
--- OUTSIDE RECORDS SUMMARY | 2017-10-06 07:01 | XMS REPORT ---
Author Author CHELSY VILLAFANA [facility] Address [address] [place] [address] Care Team Providers Care Batch Trucker Name Role Phone CHELSY VILLAFANA Unavailable PROBLEMS Type Condition ICD9-CM Code [id number] Code Onset Dates Condition Status SNOMED Code Problem Sleep apnea in adult G47.33 Active 05103016 Problem Primary insomnia F51.01 Active 6090832 Problem Chronic pain syndrome G89.4 Active 480420254 Problem long term acute care registered nurse (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 Active 502710547 Problem Anemia in other chronic diseases classified elsewhere D63.8 Active 122502821 Problem [facility] 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 Active 295991960 Problem Right carpal tunnel syndrome G56.01 Active 586746490864773 Problem 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 Active 179234205599492 Problem Chronic kidney disease, stage 4 (severe) N18.4 Active 887664362 Problem Type 2 diabetes mellitus with hyperglycemia E11.65 Active 910478452177934 Problem Psoriasis of scalp L40.9 Active 230236933 Problem Paresthesia of right upper extremity R20.2 Active 96355076 Problem Iron deficiency anemia due to chronic blood loss D50.0 Active 09314814 Problem Gastroesophageal reflux disease without esophagitis K21.9 Active 786043907 Problem Type 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 Active 959452704 Problem Diabetic 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 Active 55432135 Problem [facility] 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 Active 931819160 Problem Essential hypertension I10 Active 29498767 Problem Chronic obstructive pulmonary disease, unspecified COPD type J44.9 Active 70675895 Problem Oxygen desaturation during sleep G47.34 Active 332991901 Problem History of DVT (deep vein thrombosis) Z86.718 Active 283020423 Problem Depression, unspecified depression type F32.9 Active 62066973 ALLERGIES No Information SOCIAL HISTORY Never Assessed PLAN OF CARE VITAL SIGNS MEDICATIONS Medication Instructions Dosage Frequency Start Date End Date Duration Status BD Pen Needle Lovely U/F 32G X 4 MM USE DIRECTED THREE (3) TIMES DAILY. Active RESULTS No Results PROCEDURES No Known [...] Dialysis Ruthy Reveles 2012 -Dr. Simon now [facility] Medical History Colonoscopy (polyps 2 ) [...]
--- OUTSIDE RECORDS SUMMARY | 2017-10-06 07:01 | XMS REPORT ---
Author Author CHELSY VILLAFANA Organization [facility] Address [address] [place] [address] Care Team Providers Care Foreign Food Cook Specialty Name Role Phone CHELSY VILLAFANA Unavailable PROBLEMS Type Condition ICD9-CM Code STI10-PV Code Onset Dates Condition Status SNOMED Code Problem Sleep apnea in adult G47.33 Active 33988000 Problem Primary insomnia F51.01 Active 1436989 Problem Chronic pain syndrome G89.4 Active 048927170 Problem Supplemental oxygen dependent Z99.81 Active 327811043441 Problem Right carpal tunnel syndrome G56.01 Active 717522190055835 Problem 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 Active 417599721 Problem 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 Active 396084731024456 Problem Chronic kidney disease, stage 4 (severe) N18.4 Active 965055195 Problem Type 2 diabetes mellitus with hyperglycemia E11.65 Active 408858126095001 Problem Psoriasis of scalp L40.9 Active 193891068 Problem Paresthesia of right upper extremity R20.2 Active 21571178 Problem Diabetic 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 Active 79853073 Problem Gastroesophageal reflux disease without esophagitis K21.9 Active 892946218 Problem Anemia in other chronic diseases classified elsewhere D63.8 Active 911900440 Problem Type 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 Active 221258943 Problem Depression, unspecified depression type F32.9 Active 28787896 Problem History of DVT (deep vein thrombosis) Z86.718 Active 737725409 Problem Chronic obstructive pulmonary disease, unspecified COPD type J44.9 Active 09363005 Problem 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 Active 139678280 Problem Oxygen desaturation during sleep G47.34 Active 327095294 Problem Essential hypertension I10 Active 87167313 ALLERGIES No Information ENCOUNTERS Encounter Location Date Diagnosis [facility] [id number] [place] [address] 68474- 2793 Oct, [address], [place] [address] Sep, Type 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 and Chronic obstructive pulmonary disease, unspecified COPD type J44.9 [place] [address], [place] [address] 2869 15 Aug, 2017 Type 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 [place] [id number] [place] [address] 99384- 4497 12 Aug, 2017 Gastroesophageal reflux disease without esophagitis K21.9 ; 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 ; Chronic pain syndrome G89.4 ; Essential hypertension I10 and Type 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 [place] [address], [place] [address] 2089 08 Aug, 2017 Chronic pain syndrome G89.4 [place] [id number] [place] [address] 25658- 1350 Aug, Type 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 [place] [id number] [place] [address] 40113- 5919 30 Jul, 2017 Diabetic 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 [place] [address], [place] [address] 5965 Jul, Primary insomnia F51.01 [place] [id number] [place] [address] 53115- 2920 Jul, [place] [address] [place] [address] 84245- 8465 Jul, Type 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 and Chronic obstructive pulmonary disease, unspecified COPD type J44.9 [place] [address], [place] [address] 3163 Jul, Type 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 [place] [address], [place] [address] 2987 Jun, Type 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 [place] [id number] [place] [address] 84437- 5627 Jun, [place] [id number] [place] [address] 91059- 8413 Jun, Chronic obstructive pulmonary disease, unspecified COPD type J44.9 [place] [id number] [place] [address] 67087- 9103 May, Type 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 [place] [id number] [place] [address] 56793- 5160 May, 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 and Essential hypertension I10 [id number] [place] [address] 12584- 8641 May, Anemia in other chronic diseases classified elsewhere D63.8 ; Chronic obstructive pulmonary disease, unspecified COPD type J44.9 ; Oxygen desaturation during sleep G47.34 ; Sleep apnea in adult G47.33 and Supplemental oxygen dependent Z99.81 [address] [place] [address] 06804- 4654 May, Type 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 ; Essential hypertension I10 ; Chronic pain syndrome G89.4 ; BMI 40.0-44.9, adult Z68.41 ; Gastroesophageal reflux disease without esophagitis K21.9 ; detention 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 ; 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 ; Diabetic 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 ; Edema of both legs R60.0 and Supplemental oxygen dependent Z99.81 [place] [address] [place] [address] 47755- 1934 May, [address] [id number] [place] [address] 73012- 5130 May, Essential hypertension I10 and Gastroesophageal reflux disease without esophagitis K21.9 [facility] [id number] [place] [address] 17024- 1383 May, [place] [address] 39065- 228 May, Type 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 and 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 [place] [address] 23467- 5027 Apr, Chronic pain syndrome G89.4 and Essential hypertension I10 [place] [id number] [place] [address] 06482- 0874 Apr, Type 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 [place] [address] 46414- 9215 Apr, Type 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 [place] [address] 57544- 0599 Apr, Essential hypertension I10 [place] [address] 56250- 0480 Apr, Gastroesophageal reflux disease without esophagitis K21.9 [place] [id number] [place] [address] 24780- 9914 Apr, Type 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 [place] [id number] [place] [address] 03985- 6334 Apr, Type 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 and detention 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 [place] [id number] [place] [address] 01546- 5428 Mar, Encounter for immunization Z23 and Preoperative examination Z01.818 [place] [id number] [place] [address] 31585- 1249 Mar, [place] [address] 33048- 6989 Mar, Type 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 [facility] [address] [place] [address] 69627- 8034 08 Mar, 2017 Type 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 [facility] [address] [place] [address] 10969- 3030 Mar, Gastroesophageal reflux disease without esophagitis K21.9 [facility] [id number] [place] [address] 36738- 4262 Mar, Essential hypertension I10 [facility] [id number] [place] [address] 68941- 5958 Feb, 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 [facility] [id number] [place] [address] 54310- 9219 Feb, Type 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 [facility] [id number] [place] [address] 96241- 0217 Feb, Type 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 [facility] [id number] [place] [address] 04549- 9707 Feb, Type 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 [facility] [address] [place] [address] 00649- 0031 Feb, Gastroesophageal reflux disease without esophagitis K21.9 [facility] [id number] [place] [address] 85859- 0569 Feb, Type 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 [facility] [id number] [place] [address] 78396- 1178 Feb, detention 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 [facility] [id number] [place] [address] 79989- 2259 Jan, Type 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 [facility] [address], [place] [address]- 6730 Jan, 2017 Type 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 [facility] [address], [place] [address]- 2887 Jan, Chronic pain syndrome G89.4 [facility] [address] [address]- 0661 Jan, [facility] [address], [place] [address]- 9726 Jan, [facility] [address] [facility] [id number] [address]- 5360 Jan, [facility] [address], [place] [address]- 4512 Jan, [facility] [address], [place] [address]- 2228 Jan, Primary insomnia F51.01 ; Type 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 ; Chronic pain syndrome G89.4 and Essential hypertension I10 [facility] [address], [place] [address]- 9110 Jan, Primary insomnia F51.01 [facility] [id number], [place] [address]- 7301 Jan, Type 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 [facility] [id number], [place] [address]- 0880 Jan, [facility] [id number], [place] [address]- 1755 Jan, Chronic obstructive pulmonary disease, unspecified COPD type J44.9 [facility] [id number], [place] [address]- 1069 Jan, Essential hypertension I10 ; Type 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 ; Chronic obstructive pulmonary disease, unspecified COPD type J44.9 ; Chronic kidney disease, stage 4 (severe) N18.4 ; Right carpal tunnel syndrome G56.01 ; 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 ; detention (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 and Diabetic 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 [facility] [id number] [place] [address] 10464- 1383 Jan, Gastroesophageal reflux disease without esophagitis K21.9 [facility] [address] 39345- 1695 Dec, [facility] [address] 13891- 2718 Dec, [facility] [address] 88740- 3384 Dec, detention 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 ; Chronic pain syndrome G89.4 and Essential hypertension I10 [facility] [address] 13563- 6425 Dec, [facility] [address] 48261- 2751 Dec, Type 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 [place] [id number] [place] [address] 50042- 9910 Dec, [facility] [id number] [place] [address] 15278- 6983 Dec, Gastroesophageal reflux disease without esophagitis K21.9 [facility] [id number] [place] [address] 71068- 3071 November, Type 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 [facility] [id number] [place] [address] 06201- 0087 November, [facility] [id number] [place] [address] 63281- 1898 November, Type 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 [facility] [id number] [place] [address] 69792- 8458 November, [place] [address] [place] [address] 09937- 2708 November, Type 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 [place] [address], [place] [address]- 1404 November, [place] [id number] [place] [address] 63495- 0722 Oct, Essential hypertension I10 [place] [id number] [place] [address] 79868- 5479 Oct, Psoriasis of scalp L40.9 [place] [id number] [place] [address] 33217- 6072 Oct, Essential hypertension I10 and Chronic pain syndrome G89.4 [place] [id number] [place] [address] 02663- 2774 Oct, [place] [address] [place] [address] 59553- 4232 Sep, Type 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 [place] [address] [place] [address] 96989- 9643 Sep, [place] [address] [place] [address] 81403- 9307 Sep, Type 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 [place] [address] [place] [address] 06162- 9479 Sep, Type 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 [place] [address] [place] [address] 73194- 2874 Sep, Type 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 ; Chronic kidney disease, stage 4 (severe) N18.4 ; Chronic obstructive pulmonary disease, unspecified COPD type J44.9 ; Iron deficiency anemia due to chronic blood loss D50.0 ; detention 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 ; Gastroesophageal reflux disease without esophagitis K21.9 ; Essential hypertension I10 ; Primary insomnia F51.01 ; Depression, unspecified depression type F32.9 ; Chronic pain syndrome G89.4 ; Wrist pain, right M25.531 ; Paresthesia of right upper extremity R20.2 and Psoriasis of scalp L40.9 [place] [address] 14409- 7452 Sep, [place] [address] 59223- 0072 Aug, Essential hypertension I10 [address] 60920- 2139 Aug, History of DVT (deep vein thrombosis) Z86.718 [place] [address] 73811- 6772 Aug, [place] [address] 01219- 0541 Jul, [place] [address] 94302- 2474 Jul, [place] [address] 50076- 7235 Jul, 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 ; Chronic pain syndrome G89.4 and Chronic kidney disease, stage 4 (severe) N18.4 [place] [id number] [place] [address] 21533- 8646 Jul, [place] [id number] [place] [address] 37263- 8312 Jul, [place] [address] 75004- 8217 Jul, [place] [id number] [place] [address] 15848- 4590 Jul, [place] [address] 12117- 6723 Jul, [place] [address] [place] [address] 09158- 5977 Jul, Type 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 [place] [address], [place] [address]- 0560 16 Jul, 2016 History of DVT (deep vein thrombosis) Z86.718 [place] [id number] [place] [address] 46197- 4021 Jun, [place] [id number] [place] [address] 97133- 1253 Jun, History of DVT (deep vein thrombosis) Z86.718 [place] [id number] [place] [address] 58257- 5164 15 Jun, 2016 Post traumatic stress disorder (PTSD) F43.10 [address] [id number] [place] [address] 71010- 0693 07 Jun, 2016 Type 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 ; Diabetic 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 ; Iron deficiency anemia due to chronic blood loss D50.0 ; Chronic obstructive pulmonary disease, unspecified COPD type J44.9 ; detention 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 ; History of DVT (deep vein thrombosis) Z86.718 ; Chronic pain syndrome G89.4 ; Oxygen desaturation during sleep G47.34 ; Sleep apnea in adult G47.33 ; Gastroesophageal reflux disease without esophagitis K21.9 ; Essential hypertension I10 ; Primary insomnia F51.01 ; Depression, unspecified depression type F32.9 ; Renal failure, chronic, stage 4 (severe) N18.4 ; Excessive cerumen in both ear canals H61.23 ; Screening for breast cancer Z12.39 ; Right hand pain M79.641 and Right wrist pain M25.531 [address] [place] [address] 87370- 2372 May, [address] [id number] [place] [address] 75038- 7392 May, [facility] [address] [facility] [id number] [place] [address]- 1607 May, [facility] [address] [facility] [id number] [place] [address], [place] [address]- 9046 May, [facility] [id number] [address]- 8586 May, Anemia in other chronic diseases classified elsewhere D63.8 [facility] [address] [facility] [id number] [place] [address]- 4728 May, [facility] [address] [facility] [id number] [place] [address], [place] [address]- 1738 Apr, [facility] [id number] [place] [address]- 3838 27 Mar, 2016 Dermatofibroma D23.9 [facility] [id number] [place] [address], [place] [address]- 5947 20 Mar, 2015 [facility] [id number] [address]- 0472 14 Mar, 2015 Chronic pain syndrome G89.4 [facility] [id number] [address]- 6776 09 Mar, 2015 [facility] [address] [place] [address]- 4720 07 Mar, 2015 [facility] [id number], [place] [address]- 2545 06 Mar, 2015 [facility] [id number] [address]- 2545 Feb, [facility] [address] [facility] [id number] [place] [address]- 2546 Feb, [facility] [id number] [address]- 6231 Feb, [facility] [address], [place] [address]- 8104 Feb, [place] [address], [place] [address]- 8836 Feb, [place] [address] [place] [address] 05957- 0282 Feb, [place] [id number] [place] [address] 24566- 8513 Feb, Type 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 ; Diabetic 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 ; Iron deficiency anemia due to chronic blood loss D50.0 ; Chronic obstructive pulmonary disease, unspecified COPD type J44.9 ; detention 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 ; History of DVT (deep vein thrombosis) Z86.718 ; Chronic pain syndrome G89.4 ; Oxygen desaturation during sleep G47.34 ; Sleep apnea in adult G47.33 ; Gastroesophageal reflux disease without esophagitis K21.9 ; Essential hypertension I10 ; Primary insomnia F51.01 ; Depression, unspecified depression type F32.9 and Renal failure, chronic, stage 4 (severe) N18.4 [place] [address] [place] [address] 78737- 5180 Feb, Skin tags, multiple acquired L91.8 [place] [address] [place] [address] 26412- 5765 Jan, [facility] [address] [place] [address] [id number] Jan, Dental examination Z01.20 [place] [address], [place] [address]- 1584 Jan, [id number] [place] [address] 38168- 5178 Jan, Type 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 ; Diabetic 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 ; Iron deficiency anemia due to chronic blood loss D50.0 ; Chronic obstructive pulmonary disease, unspecified COPD type J44.9 ; detention 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 ; History of DVT (deep vein thrombosis) Z86.718 ; Chronic pain syndrome G89.4 ; Oxygen desaturation during sleep G47.34 ; Sleep apnea in adult G47.33 ; Gastroesophageal reflux disease without esophagitis K21.9 ; Essential hypertension I10 ; Primary insomnia F51.01 ; Depression, unspecified depression type F32.9 ; Skin lesion L98.9 and Renal failure, chronic, stage 4 (severe) N18.4 [facility] [id number] [place] [address] 06842- 7567 Dec, Diabetes type 2, uncontrolled E11.65 [facility] [address] 21732- 5280 Dec, [place] [address] 20809- 1286 Dec, Type 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 ; Diabetic 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 ; Iron deficiency anemia due to chronic blood loss D50.0 ; Chronic obstructive pulmonary disease, unspecified COPD type J44.9 ; detention 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 ; History of DVT (deep vein thrombosis) Z86.718 ; Chronic pain syndrome G89.4 ; Oxygen desaturation during sleep G47.34 ; Sleep apnea in adult G47.33 ; Gastroesophageal reflux disease without esophagitis K21.9 ; Essential hypertension I10 ; Primary insomnia F51.01 and Depression, unspecified depression type F32.9 [facility] [id number] [place] [address] [id number] Dec, Dental caries K02.9 [facility] [id number] [place] [address] [id number] Dec, [facility] [id number] [place] [address] [id number] Dec, Dental examination Z01.20 [facility] [id number] [place] [address] [id number] November, Dental examination Z01.20 and Dental caries K02.9 [facility] [id number] [place] [address] [id number] Oct, [facility] [address] [id number] [id number] Oct, [facility] [address] [id number] [id number] Sep, [facility] [address] [id number][place] [id number] Sep, [facility] [address] [id number][place] [id number] Sep, [facility] [address] [id number][place] [id number] Sep, Other chronic pain 338.29 [facility] [id number] [place] [address] [id number] Aug, Diabetes type 2, uncontrolled E11.65 and Morbid obesity due to excess calories E66.01 [facility] [id number] [id number] Aug, Hair loss L65.9 [facility] [address] [id number], [place] [id number] Aug, [facility] [address] [id number], [place] [id number] Jul, [facility] [address] [id number], [place] [id number] Jul, [facility] [address] [id number], [place] [id number] Jun, [facility] [id number], [place] [id number] Jun, Hair loss L65.9 and Disorder of the skin and subcutaneous tissue, unspecified L98.9 [facility] [address] [id number][place] [id number] May, Type 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 ; Type 2 diabetes mellitus with hyperglycemia E11.65 ; Morbid obesity due to excess calories E66.01 and Essential hypertension I10 [facility] [address] [id number], [place] [id number] May, Diabetes type 2, uncontrolled E11.65 ; Encounter for immunization Z23 and Morbid obesity due to excess calories E66.01 [facility] [id number], [place] [id number] May, [facility] [address] [address] Apr, [facility] [id number] [place] [address] [id number] Apr, Hyperglycemia R73.[address] [id number] Apr, [address] [id number] Apr, Depression F32.9 ; Encounter for immunization Z23 ; Hyperglycemia R73.9 and Anemia in other chronic diseases classified elsewhere D63.8 [facility] [id number] [place] [address] [id number] Mar, [id number] [place] [address] [id number] Feb, Positive occult stool blood test 792.1 [id number] [place] [address] [id number] Feb, Depression 311 ; Other chronic pain 338.29 and Diabetes with renal manifestations, type II or unspecified type, not stated as uncontrolled 250.40 [facility] [id number] [place] [address] 66932- 6085 Feb, Occult blood in stools 792.1 [id number] [place] [address] [id number] Feb, Anemia 285.9 ; Occult blood positive stool 792.1 ; Unspecified essential hypertension 401.9 and Other chronic pain 338.29 [id number] [place] [address] [id number] Feb, [id number] [place] [address] [id number] Feb, Anemia 285.9 [address] [place] [address] [id number] Feb, [id number] [place] [address] [id number] Feb, [facility] [id number], [place] [id number] Feb, Diabetes with renal manifestations, type II or unspecified type, not stated as uncontrolled 250.40 ; Other chronic pain 338.29 ; Unspecified essential hypertension 401.9 ; Anemia 285.9 and Depression 311 [facility] [id number] [place] [address] [id number] Jan, [facility] [id number] [place] [address] [id number] Jan, Anemia 285.9 and Follow up V67.9 [facility] [id number] [place] [address] [id number] Jan, [facility] [id number] [place] [address] [id number] Jan, [facility] [id number] [place] [address] [id number] Jan, [facility] [id number] [place] [address] [id number] Dec, [facility] [id number] [place] [address] 83319- 6197 Oct, [facility] [id number] [place] [address] 54621 2546 Oct, [facility] [id number] [place] [address] 16289- 6463 Sep, [facility] [id number], [place] [id number] Sep, [facility] [id number] [place] [address] 76406- 9520 Sep, [facility] [id number] [place] [address] [id number] Aug, [facility] [place] [facility] [id number] [place] [address] 90724- 2526 Aug, [facility] [place] [facility] [id number] [place] [address] 28113- 1768 Aug, [facility] [address] [id number] [place] [id number] Aug, [facility] [place] [facility] [address] [id number] [place] [address]- 6937 Aug, [facility] [place] [facility] [address] [facility] [id number] [place] [address]- 8086 Aug, [facility] [address] [id number] [place] [id number] Aug, [facility] [place] [facility] [address] [facility] [id number] [place] [address]- 2546 Aug, [facility] [address] [id number] [place] [id number] Jul, [facility] [place] [facility] [address] [facility] [id number] [place] [address]- 9026 Jul, [facility] [place] [facility] [address] [id number] [place] [address]- 9327 Jul, [facility] [address] [id number] [place] [id number] Jul, [facility] [place] [facility] [address] [facility] [id number] [place] [address]- 8549 Jul, [facility] [address] [facility] [id number] [place] [id number] Jul, [facility] [place] [facility] [address] [facility] [id number], [place] [address]- 1348 Jul, [facility] [address] [id number] [place] [id number] Jun, [facility] [address] [id number] [place] [id number] Jun, [facility] [place] [facility] [address] [facility] [id number], [place] [address]- 9476 Jun, [facility] [place] [facility] [address] [facility] [id number] [place] [address]- 7025 Jun, [facility] [address] [id number], [place] [id number] Jun, [facility] [place] [facility] [address] [facility] [id number] [place] [address]- 6056 Jun, [facility] [address] [id number], [place] [id number] May, [facility] [place] [facility] [address] [facility] [id number] [place] [address]- 2209 May, [facility] [place] [facility] [address] [facility] [id number], [place] [address]- 8646 May, [facility] [address] [facility] [id number] [place] [id number] Apr, [facility] [place] [facility] [address] [facility] [id number][place] [address]- 1279 Apr, [facility] [address] [facility] [id number], [place] [id number] Apr, [facility] [address] [facility] [id number], [place] [id number] Apr, [facility] [place] [facility] [address] [facility] [id number], [place] 912029- 2191 Apr, [facility] [place] [facility] [address] [facility] [id number], [place] 868897- 2670 Apr, [facility] [address] [facility] [id number], [place] [id number] Mar, [facility] [place] [facility] [address] [facility] [id number], [place] [address]- 8339 Mar, [facility] [address] [facility] [id number], [place] [id number] Mar, [facility] [place] [facility] [address] [facility] [id number], [place] [address]- 3019 17 Mar, 2014 [facility] [address] [facility] [id number], [place] [id number] 16 Mar, 2014 [facility] [place] [facility] [address] [facility] [id number], [place] [address]- 7184 Mar, [facility] [address] [id number] [place] [id number] Mar, [facility] [place] [facility] [address] [id number] [place] [address]- 3500 Mar, [facility] [address] [id number] [place] [id number] Mar, [facility] [place] [facility] [address] [id number] [place] [address]- 3971 Mar, [facility] [address] [id number] [place] [id number] Feb, [facility] [place] [facility] [address] [id number] [place] [address]- 9698 Feb, [facility] [address] [id number] [place] [id number] Jan, [facility] [place] [facility] [address] [facility] [id number] [place] [address]- 9705 Jan, [facility] [address] [facility] [id number] [place] [id number] Jan, [facility] [place] [facility] [address] [id number] [place]- 8048 Jan, [facility] [address] [facility] [id number] [place] [id number] Jan, [facility] [place] [facility] [address] [id number], [place] [address]- 1116 Jan, [facility] [place] [facility] [address] [facility] [id number] [place] [address]- 8108 Dec, [facility] [place] [facility] [address] [id number] [place] [address]- 1001 Dec, [facility] [address] [id number] [place] [id number] November, [facility] [place] [facility] [address] [id number] [place] [address]- 3711 November, [facility] [address] [id number] [place] [id number] November, [facility] [place] [facility] [address] [facility] [id number] [address]- 2090 November, [facility] [address] [facility] [id number], [place] [id number] Oct, [facility] [place] [facility] [address] [facility] [id number] [place] [address]- 0054 Oct, [facility] [place] [facility] [address] [facility] [id number], [place] [address]- 0906 Oct, [facility] [place] [facility] [address] [facility] [id number] [place] [address]- 9820 Oct, [facility] [place] [facility] [address] [facility] [id number] [place] [address]- 4015 Oct, [facility] [place] [facility] [address] [facility] [id number] [place] [address]- 4040 Oct, [facility] [address] [facility] [id number], [place] [id number] Sep, [facility] [address] [facility] [id number], [place] [id number] Sep, [facility] [place] [facility] [address] [facility] [id number], [place] [address]- 5868 Sep, [facility] [place] [facility] [address] [facility] [id number], [place] [address]- 7970 Sep, [facility] [address] [facility] [id number], [place] [id number] Sep, [facility] [place] [facility] [address] [facility] [id number], [place] [address]- 1420 Sep, [facility] [place] [facility] [address] [facility] [id number], [place] [address]- 9160 Aug, [facility] [place] [facility] [address] [facility] [id number], [place] [address]- 8879 Aug, [facility] [address] [facility] [id number], [place] [id number] Aug, [facility] [address] [facility] [id number], [place] [id number] Aug, [facility] [place] [facility] [address] [facility] [id number] [place] [address]- 5337 Aug, [facility] [address] [facility] [id number] [place] [id number] Aug, [facility] [place] [facility] [address] [facility] [id number] [place] [address]- 1636 Aug, [facility] [address] [facility] [id number] [place] [id number] Aug, [facility] [place] [facility] [address] [facility] [id number] [place] [address]- 1477 Aug, [facility] [address] [facility] [id number] [place] [id number] Aug, [facility] [place] [facility] [address] [id number], [place] [address]- 2002 Aug, [facility] [address] [id number], [place] [id number] Aug, [facility] [place] [facility] [address] [id number] [place] [address]- 1812 Aug, [facility] [place] [facility] [address] [id number], [place] [address]- 4611 Jul, [facility] [address] [facility] [id number], [place] [id number] Jun, [facility] [place] [facility] [address] [facility] [id number], [place] [address]- 6426 Jun, [facility] [place] [facility] [address] [facility] [id number], [place] [address]- 5666 Jun, [facility] [place] [facility] [address] [facility] [id number] [place] [address]- 0676 Jun, [facility] [address] [facility] [id number] [place] [id number] Jun, [facility] [place] [facility] [address] [facility] [id number], [place] [address]- 2502 Jun, [facility] [place] [facility] [address] [id number] [place] [address]- 2546 Jun, [facility] [address] [id number] [place] [id number] Jun, [facility] [place] [facility] [address] [id number] [place] [address]- 2546 Jun, [facility] [place] [facility] [address] [id number] [place] [address]- 2546 May, [facility] [address] [id number], [place] [id number] May, [facility] [place] [facility] [address] [id number] [place] [address]- 2546 May, [facility] [place] [facility] [address] [facility] [id number] [place] [address]- 2546 May, [facility] [place] [facility] [address] [place] [address]- 2546 May, [facility] [place] [facility] [address] [facility] [id number], [place] [address]- 2546 May, [facility] [address] [facility] [id number], [place] [id number] May, [facility] [place] [facility] [address] [facility] [id number], [place] [address]- 2546 May, [facility] [address] [facility] [id number], [place] [id number] May, [facility] [place] [facility] [address] [facility] [id number], [place] [address]- 2546 May, [facility] [address] [facility] [id number], [place] 684602297 Apr, [facility] [place] [facility] [address] [facility] [id number], [place] [address]- 2546 Apr, [facility] [place] [facility] [address] [facility] [id number], [place] [address]- 2546 Apr, [facility] [address] [facility] [id number], [place] 344628691 Apr, [facility] [place] [facility] [address] [id number], [place] [address]- 6212 Apr, [facility] [place] [facility] [address] [facility] [id number], [place] [address]- 8361 Apr, [facility] [address] [facility] [id number], [place] [id number] Apr, [facility] [place] [facility] [address] [id number], [place] [address]- 6302 Apr, [facility] [place] [facility] [address] [facility] [id number], [place] [address]- 9726 Apr, [facility] [place] [facility] [address] [facility] [id number], [place] [address]- 0526 Apr, [facility] [address] [facility] [id number], [place] [id number] Apr, [facility] [place] [facility] [address] [facility] [id number], [place] [address]- 6301 Apr, [facility] [address] [facility] [id number], [place] [id number] Apr, [facility] [place] [facility] [address] [facility] [id number], [place] [address]- 5294 Apr, [facility] [address] [facility] [id number], [place] 108567393 Apr, [facility] [place] [facility] [address] [facility] [id number], [place] [address]- 8306 Apr, [facility] [place] [facility] [address] [id number], [place] [address]- 6470 Apr, [facility] [place] [facility] [address] [facility] [id number], [place] [address]- 1678 Apr, [facility] [address] [facility] [id number], [place] [id number] Apr, [facility] [place] [facility] [address] [facility] [id number], [place] [address]- 1056 Mar, [facility] [address] [id number] [place] [address]- 6425 Mar, [facility] [place] [address] [id number] [place] [id number] Mar, [facility] [place] [address] [id number] [place] [id number] Mar, [facility] [address] [id number] [place] 064676074 Mar, [facility] [place] [address] [id number] [place] [id number] Feb, [facility] [address] [id number] [place] [id number] Feb, [facility] [place] [address] [id number] [place] [id number] Feb, [facility] [address] [facility] [id number] [place] [address]- 4412 Feb, [facility] [place] [address] [id number] [place] 146220091 Feb, [facility] [address] [id number] [place] [id number] Feb, [facility] [address] [id number] [place] 064204913 Feb, [facility] [address] [id number] [place] 343547355 Feb, [facility] [address] [id number] [place] [id number] Feb, [facility] [address] [id number] [place] 704255150 Jan, [facility] [address] [id number] [place] 056992799 Jan, [facility] [address] [id number] [place] [id number] Jan, [facility] [address] [id number] [place] 436859636 Jan, [facility] [address] [id number] [place] [id number] Jan, [facility] [address] [facility] [id number], [place] [address]- 6846 Jan, [facility] [place] [address] [id number] [place] [id number] Jan, [facility] [place] [address] [id number] [place] [id number] Jan, [facility] [place] [address] [id number] [place] 189087190 Dec, [facility] [place] [address] [id number] [place] [id number] November, [facility] [place] [address] [id number] [place] 549737049 November, [facility] [place] [address] [id number] [place] 525473862 November, [facility] [place] [address] [id number] [place] [id number] November, [facility] [address] [id number] [place] [id number] November, [facility] [address] [id number] [place] [id number] November, [facility] [address] [id number] [place] 961458226 Jul, [facility] [address] [id number] [place] 846724912 Jul, [facility] [address] [id number] [place] [id number] Jul, [facility] [address] [id number] [place] 062259399 Jun, [facility] [address] [facility] [id number], [place] [address]- 7302 Jun, [facility] [place] [address] [id number] [place] [id number] May, [facility] [address] [facility] [id number] [place] [address]- 5481 May, [facility] [place] [address] [id number] [place] [id number] May, [facility] [place] [facility] [address] [facility] [id number], [place] [address]- 3080 14 May, 2012 [facility] [place] [address] [facility] [id number], [place] [id number] May, [facility] [place] [facility] [address] [facility] [id number], [place] [address]- 4077 May, [facility] [address] [id number], [place] [id number] Apr, [facility] [place] [facility] [address] [facility] [id number] [place] [address] 79523014- 1701 Apr, [facility] [place] [facility] [address] [facility] [id number] [place] [address] 07649- 1086 Apr, [facility] [place] [address] [facility] [id number][place] [id number] Apr, [facility] [id number][place] [id number] Apr, [facility] [address] [facility] [id number], [place] [address] Apr, [facility] [address] [facility] [id number] [place] [address]483- [address]995 Apr, [facility] [place] [address] [id number] [id number] Apr, [facility] [place] [facility] [address] [facility] [id number], [place] [address] Apr, [facility] [place] [address] [id number][place] [id number] Apr, [facility] [place] [address] [id number][place] [id number] Apr, [facility] [place] [address] [id number][place] [id number] Mar, [facility] [place] [address] [id number][place] [id number] Feb, [facility] [place] [address] [id number], [place] [id number] Jan, [facility] [place] [address] [id number] [place] [id number] Dec, [facility] [place] [address] [id number] [place] [id number] Dec, [facility] [place] [address] [id number] [place] [id number] Dec, [facility] [place] [address] [id number] [place] [id number] Dec, [facility] [place] [address] [id number] [place] [id number] Dec, [facility] [place] [address] [id number] [place] [id number] November, [facility] [place] [address] [id number] [place] [id number] November, [facility] [place] [address] [id number] [place] [id number] November, [facility] [address] [facility] [id number], [place] [address] November, [facility] [place] [address] [id number] [place] [id number] November, [facility] [place] [address] [id number] [place] [id number] November, [facility] [place] [address] [id number] [place] [id number] Oct, [facility] [place] [address] [id number] [place] [id number] Oct, [facility] [place] [address] [id number] [place] [id number] Oct, [facility] [place] [address] [id number] [place] [id number] Oct, [facility] [place] [address] [id number] [place] [id number] Oct, [facility] [place] [address] [id number] [place] [id number] Oct, [facility] [place] [address] [id number] [place] [id number] Sep, [facility] [place] [address] [id number][place] [id number] Aug, [facility] [place] [address] [facility] [id number] [place] [id number] Aug, [facility] [address] [facility] [id number] [place] [id number] Jul, [facility] [place] [facility] [address] [id number], [place] [address] Jun, [facility] [place] [facility] [address] [id number], [place] [address] Jun, [facility] [place] [facility] [address] [id number] [place] [address] Jun, [facility] [place] [facility] [address] [facility] [id number], [place] [address] Jun, [facility] [place] [facility] [address] [facility] [id number] [place] [address] May, [facility] [place] [facility] [address] [id number], [place] [address] May, [facility] [place] [facility] [address] [facility] [id number], [place] [address] Apr, [facility] [place] [facility] [address] [facility] [id number], [place] [address] Apr, [facility] [place] [facility] [address] [facility] [id number], [place] [address] Apr, [facility] [place] [facility] [address] [facility] [id number], [place] [address] Feb, [facility] [place] [facility] [address] [id number], [place] [address] Aug, [facility] [place] [facility] [address] [facility] [id number], [place] [address] Jul, [facility] [place] [facility] [address] [facility] [id number], [place] [address] Jun, [facility] [place] [facility] [address] [id number], [place] [address] 29 May, 2010 [facility] [address] [id number] [place] [address] May, [facility] [place] [facility] [address] [id number] [place] [address] May, [facility] [place] [facility] [address] [id number] [place] [address] May, [facility] [place] [facility] [address] [id number] [place] [address]- [address] May, [facility] [place] [facility] [address] [id number] [place] [address] 16 Aug, 2009 [facility] [place] [facility] [address] [id number] [place] [address] Jun, [facility] [place] [facility] [address] [facility] [id number] [place] [address] Jun, [facility] [place] [facility] [address] [id number] [place] [address] Jun, [facility] [place] [facility] [address] [facility] [id number] [place] [address] 24 May, 2009 [facility] [place] [facility] [address] [facility] [id number] [place] [address] 28 Apr, 2009 [facility] [place] [facility] [address] [facility] [id number] [place] [address] 27 Apr, 2009 [facility] [place] [facility] [address] [id number], [place] [address] 15 Apr, 2009 [facility] [place] [facility] [address] [id number], [place] [address] 20 Jan, 2009 [facility] [place] [facility] [address] [facility] [id number], [place] [address] 13 Oct, 2008 [facility] [place] [facility] [address] [facility] [id number], [place] [address] 11 May, 2008 [facility] [place] [facility] [address] [facility] [id number] [place] [address] May, IMMUNIZATIONS No Known Immunizations SOCIAL HISTORY Never Assessed REASON FOR VISIT Refill request PLAN OF CARE VITAL SIGNS MEDICATIONS Unknown Medications RESULTS No Results PROCEDURES No Known procedures INSTRUCTIONS MEDICATIONS ADMINISTERED No Known Medications MEDICAL (GENERAL) HISTORY Type Description Date Medical [...] Dialysis [facility] 2012 -Dr. Simon now [facility] Medical History Colonoscopy (polyps 2 ) [...]
--- OUTSIDE RECORDS SUMMARY | 2017-10-06 07:01 | XMS REPORT ---
Author Author KATLYN SAXENA Organization [employer] Address Unknown Phone Unavailable Care Team Providers Care Stain Applicator Name Role Phone KATLYN SAXENA Unavailable Allergies [...] Start Date End Date Status Dosage Levemir [facility] [id number] UNIT/ML Subcutaneous 2 times a day September 13, 2014 95 Units Results No Known Results Summary Purpose [employer] Submission
--- OUTSIDE RECORDS SUMMARY | 2017-10-06 07:02 | XMS REPORT ---
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 Active 158139906 Problem 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 Active 134444959958168 Problem Chronic kidney disease, stage 4 (severe) N18.4 Active 815403489 Problem Type 2 diabetes mellitus with hyperglycemia E11.65 Active 874629678978837 Problem Psoriasis of scalp L40.9 Active 556296433 Problem Paresthesia of right upper extremity R20.2 Active 71542811 Problem Diabetic 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 Active 79929743 Problem Gastroesophageal reflux disease without esophagitis K21.9 Active 665622434 Problem Anemia in other chronic diseases classified elsewhere D63.8 Active 526436519 Problem Type 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 Active 172624332 Problem Depression, unspecified depression type F32.9 Active 56687086 Problem History of DVT (deep vein thrombosis) Z86.718 Active 624472263 Problem Chronic obstructive pulmonary disease, unspecified COPD type J44.9 Active 38339291 Problem 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 Active 138387400 Problem Oxygen desaturation during sleep G47.34 Active 246456166 Problem Essential hypertension I10 Active 58253917 ALLERGIES No Information ENCOUNTERS Encounter Location Date Diagnosis [facility] [id number] [place] [address] 59747- 7446 Oct, [place] [address] [address] Sep, Type 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 and Chronic obstructive pulmonary disease, unspecified COPD type J44.9 [place] [address] [address] 4[address] 15 Aug, 2017 Type 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 [place] [id number] [place] [address] 80942- 1829 12 Aug, 2017 Gastroesophageal reflux disease without esophagitis K21.9 ; 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 ; Chronic pain syndrome G89.4 ; Essential hypertension I10 and Type 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 [place] [id number] [address] 0796 08 Aug, 2017 Chronic pain syndrome G89.4 [place] [id number] [place] [address] 11291- 7607 Aug, Type 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 [place] [id number] [place] [address] 40643- 3276 30 Jul, 2017 Diabetic 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 [place] [address] [address] 6938 Jul, Primary insomnia F51.01 [place] [id number] [place] [address] 91700- 3078 Jul, [place] [address] [place] [address] 89250- 1147 Jul, Type 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 and Chronic obstructive pulmonary disease, unspecified COPD type J44.9 [place] [address] [address] 1293 Jul, Type 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 [place] [address] [address]- 5167 Jun, Type 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 [place] [id number] [place] [address] 40410- 0011 Jun, [place] [id number] [place] [address] 94633- 2822 Jun, Chronic obstructive pulmonary disease, unspecified COPD type J44.9 [place] [id number] [place] [address] 20906- 7634 May, Type 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 [place] [id number] [place] [address] 18938- 6849 May, 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 and Essential hypertension I10 [address] [id number] [place] [address] 02088- 0284 May, Anemia in other chronic diseases classified elsewhere D63.8 ; Chronic obstructive pulmonary disease, unspecified COPD type J44.9 ; Oxygen desaturation during sleep G47.34 ; Sleep apnea in adult G47.33 and Supplemental oxygen dependent Z99.[address] [place] [address] 80424- 0487 May, Type 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 ; Essential hypertension I10 ; Chronic pain syndrome G89.4 ; BMI 40.0-44.9, adult Z68.41 ; Gastroesophageal reflux disease without esophagitis K21.9 ; alf 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 ; 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 ; Diabetic 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 ; Edema of both legs R60.0 and Supplemental oxygen dependent Z99.81 [place] [address] [place] [address] 79512- 2401 May, [address] [place] [id number] [place] [address] 25569- 0587 May, Essential hypertension I10 and Gastroesophageal reflux disease without esophagitis K21.9 [facility] [id number] [place] [address] 39755- 6510 May, [place] [address] 24103- 673 May, Type 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 and 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 [place] [address] 40523- 4914 Apr, Chronic pain syndrome G89.4 and Essential hypertension I10 [place] [id number] [place] [address] 54913- 7052 Apr, Type 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 [place] [address] 23162- 7265 Apr, Type 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 [place] [address] 96356- 9775 Apr, Essential hypertension I10 [place] [address] 71347- 0164 Apr, Gastroesophageal reflux disease without esophagitis K21.9 [place] [id number] [place] [address] 31412- 9923 Apr, Type 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 [place] [id number] [place] [address] 78935- 2467 Apr, Type 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 and alf 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 [place] [id number] [place] [address] 35361- 0893 Mar, Encounter for immunization Z23 and Preoperative examination Z01.818 [place] [id number] [place] [address] 08229- 9830 Mar, [place] [address] 68109- 7455 Mar, Type 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 [facility] [address] [place] [address] 50504- 2400 08 Mar, 2017 Type 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 [facility] [address] [place] [address] 87910- 1524 Mar, Gastroesophageal reflux disease without esophagitis K21.9 [facility] [id number] [place] [address] 00401- 8751 Mar, Essential hypertension I10 [facility] [id number] [place] [address] 82787- 6555 Feb, 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 [facility] [id number] [place] [address] 09245- 7690 Feb, Type 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 [facility] [id number] [place] [address] 47534- 4984 Feb, Type 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 [facility] [id number] [place] [address] 78107- 6352 Feb, Type 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 [facility] [address] [place] [address] 24151- 9032 Feb, Gastroesophageal reflux disease without esophagitis K21.9 [facility] [id number] [place] [address] 01551- 5547 Feb, Type 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 [facility] [id number] [place] [address] 08049- 6376 Feb, alf 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 [facility] [id number] [place] [address] 37203- 8144 Jan, Type 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 [facility] [address] [address]- 3686 Jan, 2017 Type 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 [facility] [address] [address]- 3560 Jan, Chronic pain syndrome G89.4 [facility] [address] [place] [address]- 8799 Jan, [facility] [address] [address]- 8192 Jan, [facility] [address] [facility] [id number] [address]- 0414 Jan, [facility] [address] [address]- 0327 Jan, [facility] [address] [address]- 8632 Jan, Primary insomnia F51.01 ; Type 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 ; Chronic pain syndrome G89.4 and Essential hypertension I10 [facility] [address] [address]- 8722 Jan, Primary insomnia F51.01 [facility] [id number] [address]- 4430 Jan, Type 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 [facility] [id number] [address]- 2037 Jan, [facility] [id number] [address]- 9001 Jan, Chronic obstructive pulmonary disease, unspecified COPD type J44.9 [facility] [id number] [address]- 9890 Jan, Essential hypertension I10 ; Type 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 ; Chronic obstructive pulmonary disease, unspecified COPD type J44.9 ; Chronic kidney disease, stage 4 (severe) N18.4 ; Right carpal tunnel syndrome G56.01 ; 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 ; alf (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 and Diabetic 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 [facility] [id number] [place] [address] 63350- 8526 Jan, Gastroesophageal reflux disease without esophagitis K21.9 [facility] [address] 81983- 3830 Dec, [facility] [address] 66732- 7687 Dec, [facility] [address] 97650- 3850 Dec, alf 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 ; Chronic pain syndrome G89.4 and Essential hypertension I10 [facility] [address] 35606- 1514 Dec, [facility] [address] 35671- 0864 Dec, Type 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 [place] [id number] [place] [address] 50786- 7723 Dec, [facility] [id number] [place] [address] 54918- 5770 Dec, Gastroesophageal reflux disease without esophagitis K21.9 [facility] [id number] [place] [address] 36491- 3510 November, Type 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 [facility] [id number] [place] [address] 23393- 2633 November, [facility] [id number] [place] [address] 21196- 3234 November, Type 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 [facility] [id number] [place] [address] 67956- 8099 November, [place] [address] [place] [address] 81181- 9830 November, Type 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 [place] [address] [address]- 8331 November, [place] [id number] [place] [address] 44784- 3331 Oct, Essential hypertension I10 [place] [id number] [place] [address] 00821- 8529 Oct, Psoriasis of scalp L40.9 [place] [id number] [place] [address] 34920- 2373 Oct, Essential hypertension I10 and Chronic pain syndrome G89.4 [place] [id number] [place] [address] 26386- 6047 Oct, [place] [address] [place] [address] 46845- 7412 Sep, Type 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 [place] [address] [place] [address] 63928- 4185 Sep, [place] [address] [place] [address] 23257- 8141 Sep, Type 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 [place] [address] [place] [address] 05655- 2498 Sep, Type 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 [place] [address] [place] [address] 07627- 8599 Sep, Type 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 ; Chronic kidney disease, stage 4 (severe) N18.4 ; Chronic obstructive pulmonary disease, unspecified COPD type J44.9 ; Iron deficiency anemia due to chronic blood loss D50.0 ; alf 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 ; Gastroesophageal reflux disease without esophagitis K21.9 ; Essential hypertension I10 ; Primary insomnia F51.01 ; Depression, unspecified depression type F32.9 ; Chronic pain syndrome G89.4 ; Wrist pain, right M25.531 ; Paresthesia of right upper extremity R20.2 and Psoriasis of scalp L40.9 [place] [address] 91782- 7897 Sep, [place] [address] 21608- 0304 Aug, Essential hypertension I10 [address] 83762- 1357 Aug, History of DVT (deep vein thrombosis) Z86.718 [place] [address] 98270- 6115 Aug, [place] [address] 85623- 1146 Jul, [place] [address] 28646- 6545 Jul, [place] [address] 51303- 9797 Jul, 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 ; Chronic pain syndrome G89.4 and Chronic kidney disease, stage 4 (severe) N18.4 [place] [id number] [place] [address] 45597- 5447 Jul, [place] [id number] [place] [address] 55244- 1216 Jul, [place] [address] 02164- 2111 Jul, [place] [id number] [place] [address] 87463- 6202 Jul, [place] [address] 87168- 8543 Jul, [place] [address] [place] [address] 74160- 8682 Jul, Type 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 [place] [address] [address]- 9443 16 Jul, 2016 History of DVT (deep vein thrombosis) Z86.718 [place] [id number] [place] [address] 34372- 9126 Jun, [place] [id number] [place] [address] 67637- 6646 Jun, History of DVT (deep vein thrombosis) Z86.718 [place] [id number] [place] [address] 62753- 4298 15 Jun, 2016 Post traumatic stress disorder (PTSD) F43.10 [address] [id number] [place] [address] 32574- 4039 07 Jun, 2016 Type 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 ; Diabetic 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 ; Iron deficiency anemia due to chronic blood loss D50.0 ; Chronic obstructive pulmonary disease, unspecified COPD type J44.9 ; alf 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 ; History [...] pain M79.641 and Right wrist pain M25.531 [address] [place] [address] 31254- 4941 May, [address] [id number] [place] [address] 56304- 4044 May, [facility] [address] [facility] [id number] [place] [address]- 6012 May, [facility] [address] [facility] [id number] [place] [address], [place] [address]- 2756 May, [facility] [id number] [place] [address]- 9906 May, Anemia in other chronic diseases classified elsewhere D63.8 [facility] [address] [facility] [id number] [place] [address]- 8067 May, [facility] [address] [facility] [id number] [place] [address], [place] [address]- 7948 Apr, [facility] [id number] [place] [address]- 3119 27 Mar, 2016 Dermatofibroma D23.9 [facility] [id number] [place] [address], [place] [address]- 1269 20 Mar, 2015 [facility] [id number] [place] [address]- 8784 14 Mar, 2015 Chronic pain syndrome G89.4 [facility] [id number] [place] [address]- 0524 09 Mar, 2015 [facility] [address] [place] [address]- 3280 07 Mar, 2015 [facility] [id number] [address]- 2549 06 Mar, 2015 [facility] [id number] [place] [address]- 2540 Feb, [facility] [address] [facility] [id number] [place] [address]- 2546 Feb, [facility] [id number] [place] [address]- 8453 Feb, [facility] [address] [address]- 6773 Feb, [place] [address] [address]- 6855 Feb, [place] [address] [place] [address] 66007- 2406 Feb, [place] [id number] [place] [address] 59339- 6542 Feb, Type 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 ; Diabetic 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 ; Iron deficiency anemia due to chronic blood loss D50.0 ; Chronic obstructive pulmonary disease, unspecified COPD type J44.9 ; alf 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 ; History of DVT (deep vein thrombosis) Z86.718 ; Chronic pain syndrome G89.4 ; Oxygen desaturation during sleep G47.34 ; Sleep apnea in adult G47.33 ; Gastroesophageal reflux disease without esophagitis K21.9 ; Essential hypertension I10 ; Primary insomnia F51.01 ; Depression, unspecified depression type F32.9 and Renal failure, chronic, stage 4 (severe) N18.4 [place] [address] [place] [address] 82554- 1781 Feb, Skin tags, multiple acquired L91.8 [place] [address] [place] [address] 71155- 1661 Jan, [facility] [address] [place] [address] [id number] Jan, Dental examination Z01.20 [place] [address] [address]- 6065 Jan, [place] [id number] [place] [address] 08756- 8665 Jan, Type 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 ; Diabetic 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 ; Iron deficiency anemia due to chronic blood loss D50.0 ; Chronic obstructive pulmonary disease, unspecified COPD type J44.9 ; alf 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 ; History of DVT (deep vein thrombosis) Z86.718 ; Chronic pain syndrome G89.4 ; Oxygen desaturation during sleep G47.34 ; Sleep apnea in adult G47.33 ; Gastroesophageal reflux disease without esophagitis K21.9 ; Essential hypertension I10 ; Primary insomnia F51.01 ; Depression, unspecified depression type F32.9 ; Skin lesion L98.9 and Renal failure, chronic, stage 4 (severe) N18.4 [facility] [id number] [place] [address] 94827- 8905 Dec, Diabetes type 2, uncontrolled E11.65 [facility] [address] 55074- 9186 Dec, [place] [address] 87203- 7871 Dec, Type 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 ; Diabetic 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 ; Iron deficiency anemia due to chronic blood loss D50.0 ; Chronic obstructive pulmonary disease, unspecified COPD type J44.9 ; alf 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 ; History of DVT (deep vein thrombosis) Z86.718 ; Chronic pain syndrome G89.4 ; Oxygen desaturation during sleep G47.34 ; Sleep apnea in adult G47.33 ; Gastroesophageal reflux disease without esophagitis K21.9 ; Essential hypertension I10 ; Primary insomnia F51.01 and Depression, unspecified depression type F32.9 [facility] [id number] [place] [address] [id number] Dec, Dental caries K02.9 [facility] [id number] [place] [address] [id number] Dec, [facility] [id number] [place] [address] [id number] Dec, Dental examination Z01.20 [facility] [id number] [place] [address] [phone] November, Dental examination Z01.20 and Dental caries K02.9 [facility] [id number] [place] [address] [id number] Oct, [facility] [address] [id number] [place] [id number] Oct, [facility] [address] [id number] [place] [id number] Sep, [facility] [address] [id number] [place] [id number] Sep, [facility] [address] [id number] [place] [id number] Sep, [facility] [address] [id number] [place] [id number] Sep, Other chronic pain 338.29 [facility] [id number] [place] [address] [id number] Aug, Diabetes type 2, uncontrolled E11.65 and Morbid obesity due to excess calories E66.01 [facility] [id number] [place] [id number] Aug, Hair loss L65.9 [facility] [address] [id number] [place] [id number] Aug, [facility] [address] [id number] [place] [id number] Jul, [facility] [address] [id number] [place] [id number] Jul, [facility] [address] [id number] [place] [id number] Jun, [facility] [place] [id number] [place] [id number] Jun, Hair loss L65.9 and Disorder of the skin and subcutaneous tissue, unspecified L98.9 [facility] [place] [address] [id number] [place] [id number] May, Type 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 ; Type 2 diabetes mellitus with hyperglycemia E11.65 ; Morbid obesity due to excess calories E66.01 and Essential hypertension I10 [facility] [place] [address] [id number] [place] [id number] May, Diabetes type 2, uncontrolled E11.65 ; Encounter for immunization Z23 and Morbid obesity due to excess calories E66.01 [facility] [id number] [place] [id number] May, [facility] [address] [address] Apr, [facility] [id number] [place] [address] [id number] Apr, Hyperglycemia R73.[address] [id number] Apr, [address] [id number] Apr, Depression F32.9 ; Encounter for immunization Z23 ; Hyperglycemia R73.9 and Anemia in other chronic diseases classified elsewhere D63.8 [facility] [place] [id number] [place] [address] [id number] Mar, [id number] [place] [address] [id number] Feb, Positive occult stool blood test 792.1 [id number] [place] [address] [id number] Feb, Depression 311 ; Other chronic pain 338.29 and Diabetes with renal manifestations, type II or unspecified type, not stated as uncontrolled 250.40 [facility] [id number] [place] [address]26- 7018 Feb, Occult blood in stools 792.1 [id number] [place] [address] [id number] Feb, Anemia 285.9 ; Occult blood positive stool 792.1 ; Unspecified essential hypertension 401.9 and Other chronic pain 338.[id number] [place] [address] [id number] Feb, [id number] [place] [address] [id number] Feb, Anemia 285.9 [id number] [place] [address] [id number] Feb, [id number] [place] [address] [id number] Feb, [facility] [place] [id number] [place] [id number] Feb, Diabetes with renal manifestations, type II or unspecified type, not stated as uncontrolled 250.40 ; Other chronic pain 338.29 ; Unspecified essential hypertension 401.9 ; Anemia 285.9 and Depression 311 [facility] [place] [id number] [place] [address] [id number] Jan, [facility] [place] [id number] [place] [address] [id number] Jan, Anemia 285.9 and Follow up V67.9 [facility] [place] [id number] [place] [address] [id number] Jan, [facility] [place] [id number] [place] [address] [id number] Jan, [facility] [place] [id number] [place] [address] [id number] Jan, [facility] [place] [id number] [place] [address] [id number] Dec, [facility] [id number] [place] [address] 39370- 6651 Oct, [facility] [id number] [place] [address] 09165 2546 Oct, [facility] [id number] [place] [address] 38871- 4215 Sep, [facility] [place] [id number] [place] [id number] Sep, [facility] [id number] [place] [address] 732[address]- 0697 Sep, [facility] [place] [id number] [place] [address] [id number] Aug, [facility] [place] [facility] [id number] [place] [address] 04597- 2981 Aug, [facility] [place] [facility] [id number] [place] [address] 57102- 4600 Aug, [facility] [place] [address] [id number] [place] [id number] Aug, [facility] [place] [facility] [address] [id number] [place] [address]- 1328 Aug, [facility] [place] [facility] [address] [facility] [id number] [place] [address]- 2526 Aug, [facility] [place] [address] [id number] [place] [id number] Aug, [facility] [place] [facility] [address] [facility] [id number] [place] [address]- 2546 Aug, [facility] [address] [id number] [place] [id number] Jul, [facility] [place] [facility] [address] [facility] [id number] [place] [address]- 2506 Jul, [facility] [place] [facility] [address] [id number] [address]- 6098 Jul, [facility] [address] [id number] [place] [id number] Jul, [facility] [place] [facility] [address] [facility] [id number] [place] [address]- 3909 Jul, [facility] [place] [address] [facility] [id number] [place] [id number] Jul, [facility] [place] [facility] [address] [facility] [id number] [address]- 6193 Jul, [facility] [place] [address] [id number] [place] [id number] Jun, [facility] [address] [id number] [place] [id number] Jun, [facility] [place] [facility] [address] [facility] [id number] [address]- 2516 Jun, [facility] [place] [facility] [address] [facility] [id number] [place] [address]- 4478 Jun, [facility] [address] [id number] [place] [id number] Jun, [facility] [place] [facility] [address] [facility] [id number] [place] [address]- 5286 Jun, [facility] [place] [address] [id number] [place] [id number] May, [facility] [place] [facility] [address] [facility] [id number] [place] [address]- 0913 May, [facility] [place] [facility] [address] [facility] [id number] [address]- 2531 May, [facility] [address] [facility] [id number] [place] [id number] Apr, [facility] [place] [facility] [address] [facility] [id number] [address]- 7099 Apr, [facility] [address] [facility] [id number] [place] [id number] Apr, [facility] [place] [address] [facility] [id number] [place] [id number] Apr, [facility] [place] [facility] [address] [facility] [id number] [place] 3413[place]- 6575 Apr, [facility] [place] [facility] [address] [facility] [id number] [place] 180812- 8280 Apr, [facility] [address] [facility] [id number] [place] 747353935 Mar, [facility] [place] [facility] [address] [facility] [id number] [address]- 7578 Mar, [facility] [address] [facility] [id number] [place] [id number] Mar, [facility] [place] [facility] [address] [facility] [id number] [address]- 9075 17 Mar, 2014 [facility] [place] [address] [facility] [id number] [place] [id number] 16 Mar, 2014 [facility] [place] [facility] [address] [facility] [id number] [address]- 4319 Mar, [facility] [address] [id number] [place] [id number] Mar, [facility] [place] [facility] [address] [id number] [place] [address]- 5835 Mar, [facility] [place] [address] [id number] [place] [id number] Mar, [facility] [place] [facility] [address] [id number] [place] [address]- 5086 Mar, [facility] [place] [address] [id number] [place] [id number] Feb, [facility] [place] [facility] [address] [id number] [place] [address]- 2425 Feb, [facility] [place] [address] [id number] [place] [id number] Jan, [facility] [place] [facility] [address] [facility] [id number] [place] [address]- 2576 Jan, [facility] [place] [address] [facility] [id number] [place] [id number] Jan, [facility] [place] [facility] [address] [id number] [place]- 7213 Jan, [facility] [place] [address] [facility] [id number] [place] [id number] Jan, [facility] [place] [facility] [address] [id number] [place] [address]- 6071 Jan, [facility] [place] [facility] [address] [facility] [id number] [place] [address]- 8655 Dec, [facility] [place] [facility] [address] [id number] [place] [address]- 9752 Dec, [facility] [place] [address] [id number] [place] [id number] November, [facility] [place] [facility] [address] [id number] [place] [address]- 0779 November, [facility] [place] [address] [id number] [place] [id number] November, [facility] [place] [facility] [address] [facility] [id number] [address]- 5459 November, [facility] [place] [address] [facility] [id number] [place] [id number] Oct, [facility] [place] [facility] [address] [facility] [id number] [place] [address]- 0802 Oct, [facility] [place] [facility] [address] [facility] [id number] [place] [address]- 9723 Oct, [facility] [place] [facility] [address] [facility] [id number] [place] [address]- 4284 Oct, [facility] [place] [facility] [address] [facility] [id number] [place] [address]- 8539 Oct, [facility] [place] [facility] [address] [facility] [id number] [place] [address]- 4498 Oct, [facility] [place] [address] [facility] [id number] [place] [id number] Sep, [facility] [address] [facility] [id number] [place] [id number] Sep, [facility] [place] [facility] [address] [facility] [id number] [address]- 4757 Sep, [facility] [place] [facility] [address] [facility] [id number] [address]- 7056 Sep, [facility] [address] [facility] [id number] [place] [id number] Sep, [facility] [place] [facility] [address] [facility] [id number] [place] [address]- 1041 Sep, [facility] [place] [facility] [address] [facility] [id number] [address]- 4543 Aug, [facility] [place] [facility] [address] [facility] [id number] [address]- 3681 Aug, [facility] [place] [address] [facility] [id number] [place] 755848203 Aug, [facility] [address] [facility] [id number] [place] [id number] Aug, [facility] [place] [facility] [address] [facility] [id number] [place] [address]- 2415 Aug, [facility] [place] [address] [facility] [id number] [place] [id number] Aug, [facility] [place] [facility] [address] [facility] [id number] [place] [address]- 9586 Aug, [facility] [place] [address] [facility] [id number] [place] [id number] Aug, [facility] [place] [facility] [address] [facility] [id number] [place] [address]- 4908 Aug, [facility] [place] [address] [facility] [id number] [place] [id number] Aug, [facility] [place] [facility] [address] [id number] [address]- 9418 Aug, [facility] [place] [address] [id number] [place] [id number] Aug, [facility] [place] [facility] [address] [id number] [address]- 1837 Aug, [facility] [place] [facility] [address] [id number] [address]- 4128 Jul, [facility] [place] [address] [facility] [id number] [place] [id number] Jun, [facility] [place] [facility] [address] [facility] [id number] [address]- 0639 Jun, [facility] [place] [facility] [address] [facility] [id number] [place] [address]- 6465 Jun, [facility] [place] [facility] [address] [facility] [id number] [place] [address]- 0487 Jun, [facility] [address] [facility] [id number] [place] [id number] Jun, [facility] [place] [facility] [address] [facility] [id number] [address]- 8845 Jun, [facility] [place] [facility] [address] [id number] [place] [address]- 2546 Jun, [facility] [place] [address] [id number] [place] [id number] Jun, [facility] [place] [facility] [address] [id number] [place] [address]- 2546 Jun, [facility] [place] [facility] [address] [id number] [place] [address]- 2546 May, [facility] [place] [address] [id number] [place] [id number] May, [facility] [place] [facility] [address] [id number] [place] [address]- 2546 May, [facility] [place] [facility] [address] [facility] [id number] [place] [address]- 2546 May, [facility] [place] [facility] [id number] [address]- 2546 May, [facility] [place] [facility] [address] [facility] [id number] [address]- 2546 May, [facility] [place] [address] [facility] [id number] [place] [id number] May, [facility] [place] [facility] [address] [facility] [id number] [place] [address]- 2546 May, [facility] [place] [address] [facility] [id number] [place] 619200867 May, [facility] [place] [facility] [address] [facility] [id number] [address]- 2546 May, [facility] [place] [address] [facility] [id number] [place] 690750695 Apr, [facility] [place] [facility] [address] [facility] [id number] [place] [address]- 2546 Apr, [facility] [place] [facility] [address] [facility] [id number] [address]- 2546 Apr, [facility] [place] [address] [facility] [id number] [place] [id number] Apr, [facility] [place] [facility] [address] [id number] [place] [address]- 0157 Apr, [facility] [place] [facility] [address] [facility] [id number] [address]- 1288 Apr, [facility] [address] [facility] [id number] [place] 533999856 Apr, [facility] [place] [facility] [address] [id number] [address]- 0976 Apr, [facility] [place] [facility] [address] [facility] [id number] [place] [address]- 8910 Apr, [facility] [place] [facility] [address] [facility] [id number] [address]- 4738 Apr, [facility] [place] [address] [facility] [id number] [place] 575042682 Apr, [facility] [place] [facility] [address] [facility] [id number] [address]- 1661 Apr, [facility] [address] [facility] [id number] [place] 417052239 Apr, [facility] [place] [facility] [address] [facility] [id number] [address]- 4593 Apr, [facility] [address] [facility] [id number] [place] [id number] Apr, [facility] [place] [facility] [address] [facility] [id number] [address]- 4256 Apr, [facility] [place] [facility] [address] [id number] [address]- 9958 Apr, [facility] [place] [facility] [address] [facility] [id number] [address]- 4996 Apr, [facility] [place] [address] [facility] [id number] [place] 510298142 Apr, [facility] [place] [facility] [address] [facility] [id number] [place] [address]- 2569 Mar, [facility] [address] [id number] [place] [address]- 2183 Mar, [facility] [place] [address] [id number] [place] [id number] Mar, [facility] [place] [address] [id number] [place] 855586908 Mar, [facility] [place] [address] [id number] [place] [id number] Mar, [facility] [place] [address] [id number] [place] 283682314 Feb, [facility] [place] [address] [id number] [place] [id number] Feb, [facility] [place] [address] [id number] [place] 200842876 Feb, [facility] [address] [facility] [id number] [place] [address]- 6390 Feb, [facility] [place] [address] [id number] [place] 820340052 Feb, [facility] [place] [address] [id number] [place] 068997995 Feb, [facility] [place] [address] [id number] [place] 939082782 Feb, [facility] [place] [address] [id number] [place] 652174899 Feb, [facility] [place] [address] [id number] [place] 260887562 Feb, [facility] [place] [address] [id number] [place] 034743803 Jan, [facility] [place] [address] [id number] [place] 547407708 Jan, [facility] [address] [id number] [place] 618180687 Jan, [facility] [place] [address] [id number] [place] 095456172 Jan, [facility] [place] [address] [id number] [place] [id number] Jan, [facility] [address] [facility] [id number] [address]- 6243 Jan, [facility] [place] [address] [id number] [place] [id number] Jan, [facility] [place] [address] [id number] [place] 454862616 Jan, [facility] [place] [address] [id number] [place] 509806009 Dec, [facility] [place] [address] [id number] [place] 572453079 November, [facility] [place] [address] [id number] [place] [id number] November, [facility] [place] [address] [id number] [place] 927928668 November, [facility] [place] [address] [id number] [place] 251518584 November, [facility] [place] [address] [id number] [place] 325722764 November, [facility] [place] [address] [id number] [place] 309521341 November, [facility] [place] [address] [id number] [place] 005542134 Jul, [facility] [place] [address] [id number] [place] 509374177 Jul, [facility] [place] [address] [id number] [place] [id number] Jul, [facility] [place] [address] [id number] [place] 036710399 Jun, [facility] [address] [facility] [id number] [address]- 8608 Jun, [facility] [place] [address] [id number] [place] [id number] May, [facility] [address] [facility] [id number] [place] [address]- 6334 May, [facility] [place] [address] [id number] [place] [id number] May, [facility] [place] [facility] [address] [facility] [id number] [place] [address]- 5612 14 May, 2012 [facility] [place] [address] [facility] [id number] [place] [id number] May, [facility] [place] [facility] [address] [facility] [id number] [address]- 9302 May, [facility] [place] [address] [id number] [place] 613413485 Apr, [facility] [place] [facility] [address] [facility] [id number] [place] [address] 49297856- 8491 Apr, [facility] [place] [facility] [address] [facility] [id number] [place] [address] 57772- 1831 Apr, [facility] [place] [address] [facility] [id number] [place] [id number] Apr, [facility] [id number] [place] 679754911 Apr, [facility] [address] [facility] [id number] [place] [address]- 1606 Apr, [facility] [address] [facility] [id number] [place] [address] 65751- 7760 Apr, [facility] [place] [address] [id number] [place] 785543163 Apr, [facility] [place] [facility] [address] [facility] [id number] [address]- 1831 Apr, [facility] [place] [address] [id number] [place], [place] [id number] Apr, [facility] [place] [address] [id number] [place] 992170556 Apr, [facility] [place] [address] [id number] [place], [place] 616541079 Mar, [facility] [place] [address] [id number] [place] [id number] Feb, [facility] [place] [address] [id number] [place] [id number] Jan, [facility] [place] [address] [id number] [place] [id number] Dec, [facility] [place] [address] [id number] [place] [id number] Dec, [facility] [place] [address] [id number] [place] [id number] Dec, [facility] [place] [address] [id number] [place] [id number] Dec, [facility] [place] [address] [id number] [place] [id number] Dec, [facility] [place] [address] [id number] [place] [id number] November, [facility] [place] [address] [id number] [place] [id number] November, [facility] [place] [address] [id number] [place] [id number] November, [facility] [address] [facility] [id number] [address] November, [facility] [place] [address] [id number] [place] [id number] November, [facility] [place] [address] [id number] [place] [id number] November, [facility] [place] [address] [id number] [place] [id number] Oct, [facility] [place] [address] [id number] [place] [id number] Oct, [facility] [place] [address] [id number] [place] [id number] Oct, [facility] [place] [address] [id number] [place] [id number] Oct, [facility] [place] [address] [id number] [place] [id number] Oct, [facility] [place] [address] [id number] [place] [id number] Oct, [facility] [place] [address] [id number] [place] [id number] Sep, [facility] [place] [address] [id number] [place] [id number] Aug, [facility] [place] [address] [facility] [id number] [place] [id number] Aug, [facility] [address] [facility] [id number] [place] [id number] Jul, [facility] [place] [facility] [address] [id number] [address] Jun, [facility] [place] [facility] [address] [id number] [address] Jun, [facility] [place] [facility] [address] [id number] [place] [address] Jun, [facility] [place] [facility] [address] [facility] [id number] [address] Jun, [facility] [place] [facility] [address] [facility] [id number] [place] [address] May, [facility] [place] [facility] [address] [id number] [address] May, [facility] [place] [facility] [address] [facility] [id number] [address] Apr, [facility] [place] [facility] [address] [facility] [id number] [address] Apr, [facility] [place] [facility] [address] [facility] [id number] [address] Apr, [facility] [place] [facility] [address] [facility] [id number] [address] Feb, [facility] [place] [facility] [address] [id number] [address] Aug, [facility] [place] [facility] [address] [facility] [id number] [place] [address] Jul, [facility] [place] [facility] [address] [facility] [id number] [address] Jun, [facility] [place] [facility] [address] [id number] [place] [address] 29 May, 2010 [facility] [place] [facility] [address] [id number] [place] [address] May, [facility] [place] [facility] [address] [id number] [place] [address] May, [facility] [place] [facility] [address] [id number] [place] [address] May, [facility] [place] [facility] [address] [id number] [place] [address] May, [facility] [place] [facility] [address] [id number] [place] [address] 16 Aug, 2009 [facility] [place] [facility] [address] [id number] [place] [address] Jun, [facility] [place] [facility] [address] [facility] [id number] [place] [address] Jun, [facility] [place] [facility] [address] [id number] [place] [address] Jun, [facility] [place] [facility] [address] [facility] [id number] [place] [address] 24 May, 2009 [facility] [place] [facility] [address] [facility] [id number] [place] [address] 28 Apr, 2009 [facility] [place] [facility] [address] [facility] [id number] [place] [address] 27 Apr, 2009 [facility] [place] [facility] [address] [id number] [address] 15 Apr, 2009 [facility] [place] [facility] [address] [id number] [address] 20 Jan, 2009 [facility] [place] [facility] [address] [facility] [id number] [address] 13 Oct, 2008 [facility] [place] [facility] [address] [facility] [id number] [address] 11 May, 2008 [facility] [place] [facility] [address] [facility] [id number] [place] [address] May, IMMUNIZATIONS No Known Immunizations SOCIAL HISTORY Never Assessed REASON FOR VISIT Refill request PLAN OF CARE VITAL SIGNS MEDICATIONS Medication Instructions Dosage Frequency Start Date End Date Duration Status BD Pen BD PEN NEEDLE MARSHA subcut 3 times a day as directed 8h Active Seroquel 50 mg Orally Once a day at bedtime 1 tablet 30 days Active RESULTS No Results PROCEDURES No Known [...] Dialysis Ruthy Reveles 2012 -Dr. Simon now [facility] Medical History Colonoscopy (polyps 2 ) [...]
--- OUTSIDE RECORDS SUMMARY | 2017-10-06 07:03 | XMS REPORT ---
Author Author CHELSY VILLAFANA [facility] Address [address] [place] [address] Care Team Providers Care Pediatric Acute Care Unit Nurse Name Role Phone CHELSY VILLAFANA Unavailable PROBLEMS Type Condition ICD9-CM Code [id number] Code Onset Dates Condition Status SNOMED Code Problem Sleep apnea in adult G47.33 Active 11092946 Problem Primary insomnia F51.01 Active 9109810 Problem Chronic pain syndrome G89.4 Active 119035115 Problem long term care pharmacist (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 Active 262070540 Problem Anemia in other chronic diseases classified elsewhere D63.8 Active 337703737 Problem [facility] 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 Active 147561253 Problem Right carpal tunnel syndrome G56.01 Active 418727002320575 Problem 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 Active 715025751835603 Problem Chronic kidney disease, stage 4 (severe) N18.4 Active 683269514 Problem Type 2 diabetes mellitus with hyperglycemia E11.65 Active 173194616383498 Problem Psoriasis of scalp L40.9 Active 416342185 Problem Paresthesia of right upper extremity R20.2 Active 34810315 Problem Iron deficiency anemia due to chronic blood loss D50.0 Active 40974405 Problem Gastroesophageal reflux disease without esophagitis K21.9 Active 189310575 Problem Type 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 Active 289508419 Problem Diabetic 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 Active 96400690 Problem [facility] 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 Active 005191479 Problem Essential hypertension I10 Active 73867856 Problem Chronic obstructive pulmonary disease, unspecified COPD type J44.9 Active 76580715 Problem Oxygen desaturation during sleep G47.34 Active 764482282 Problem History of DVT (deep vein thrombosis) Z86.718 Active 142925450 Problem Depression, unspecified depression type F32.9 Active 83356679 ALLERGIES No Information SOCIAL HISTORY Never Assessed PLAN OF CARE VITAL SIGNS MEDICATIONS Medication Instructions Dosage Frequency Start Date End Date Duration Status Verapamil HCl CR 240 MG Orally Once a day in the morning with food- must keep appt for further refills 1 tablet Active RESULTS No Results PROCEDURES [...] Dialysis Ruthy Reveles 2012 -Dr. Simon now [place] Medical History Colonoscopy (polyps 2 ) [...]
--- OUTSIDE RECORDS SUMMARY | 2017-10-06 07:03 | XMS REPORT ---
Author Author KATLYN SAXENA [facility] eClinicalWorks Address Unknown Phone Unavailable Care Team Providers Care Cell Installer Name Role Phone KATLYN SAXENA Unavailable Allergies [...] Problem Chronic kidney disease, unspecified 585.9 Active Assessment Other chronic pain 338.29 Active Assessment Unspecified essential hypertension 401.9 Active Assessment Occult blood positive stool 792.1 Active Medications Medication Code System Code Instructions Start Date End Date Status Dosage Verapamil HCl CR [facility] [address]-17 240 MG Orally Once a day in the morning with food February 01, 2015 1 tablet Savella [facility] [address]-97 50 MG Orally Twice a day Feb 13, 2015 Apr 14, 2015 1 tablet Fexofenadine HCl [facility] [address]-11 180 MG Orally Once a day Feb 13, 2015 May 14, 2015 1 tablet Effexor XR [facility] [address]-76 150 MG Orally Once a day Feb 18, 2015 1 capsule with food Protonix [facility] [address]-49 40 MG Orally Once a day Jun 06, 2014 1 tablet Tretinoin [facility] [address]-90 0.025 % May 24, 2014 1 Application by Topical route 1 time per day Torsemide [facility] [address]-48 100 MG Orally Once a day 1/2 tablet Victoza [facility] [address]-68 0.6 mg/0.1 mL (18 mg/3 mL) Subcutaneous Once a day Mar 08, 2014 1.8 mg Advair Diskus [facility] [address]-45 100 mcg-50 mcg Mar 08, 2014 1 puffs by Inhalation route 2 times per day (rinse mouth and throat after use) Levemir [facility] [address]-90 100 UNIT/ML Subcutaneous 2 times a day September 13, 2014 95 Units Albuterol Sulfate [facility] [address]-46 90 mcg/actuation January 22, 2014 2 puffs by Inhalation route every 4-6 hours as needed PRN cough or wheezing tramadol ND 0 50 mg Apr 20, 2014 take 1 tablet by Oral route every 6 hours as needed PRN May take up to 3 times per day as needed for pain. Melatonin [facility] 49617-[address]73 10 mg December 10, 2011 2 Tablet by Oral route 1 time per dayat bedtime Multivitamin [facility] 90359[address]22 December 10, 2011 2 Tablet by Oral route 1 Xarelto [facility] [address]-33 20 MG Orally Once a day 1 tablet with food iFerex 150 [facility] [address]-45 150 MG Orally 3 times a day 1 capsule Pravastatin Sodium [facility] [address]-87 80 MG Orally Once a day December 17, 2014 1 tablet Vitamin A & D [facility] [address]83-39174 Mar 20, 2013 1 Capsule by Oral route 1 time per day Vit A 5000IU & Vit D 400IU Trazodone HCl [facility] [address]-01 150 MG Orally Once a day at bedtime as needed December 17, 2014 1 tablet Gabapentin [facility] [address]-07 600 MG Orally Three times a day Aug 16, 2014 take 1 tablet Fish Oil Concentrate [facility] [address]36-78641 1000 mg Orally Twice a day 2 caps in AM 1 caps in PM Apr 12, 2012 1 capsule Results No Known Results Summary Purpose eClinicalWorks Submission
--- OUTSIDE RECORDS SUMMARY | 2017-10-06 07:03 | XMS REPORT ---
Author Author CHELSY VILLAFANA Organization [employer] Address Unknown Phone Unavailable Care Team Providers Care Exchange Mechanic Name Role Phone CHELSY VILLAFANA CP Unavailable [...] Oxygen desaturation during sleep G47.34 Active Problem senior care 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 Active Problem [...] Instructions Start Date End Date Status Dosage Torsemide [facility] 11930704733 100 MG Orally Once a day 1/2 tablet Cozaar [facility] 26827209258 50 MG Orally Once a day 1 tablet Results No Known Results Summary Purpose eClinicalWorks Submission
--- OUTSIDE RECORDS SUMMARY | 2017-10-06 07:03 | XMS REPORT ---
Author Author CHELSY VILLAFANA [facility] eClinicalWorks Address Unknown Phone Unavailable Care Team Providers Care Infrastructure Technician Name Role Phone CHELSY VILLAFANA CP Unavailable [...] Oxygen desaturation during sleep G47.34 Active Problem skilled nursing 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 Active Problem [...] Instructions Start Date End Date Status Dosage Ibrahimaa [facility] 54585418910 100 MG Orally Twice a day 1 tablet Results No Known Results Summary Purpose eClinicalWorks Submission
--- OUTSIDE RECORDS SUMMARY | 2017-10-06 07:03 | XMS REPORT ---
Author HARRIET Verma [facility] eClinicalWorks Address Unknown Phone Unavailable Care Team Providers Care Product Engineering Manager Name Role Phone HARRIET NG CP Unavailable Allergies, Adverse Reactions, Alerts Substance Reaction Event Type Sulfamethoxazole-Trimethoprim hives Drug Allergy Penicillin V Potassium anaphylaxis Drug Allergy plastic tape rash Non Drug Allergy Problems Problem Type Condition Code [...] Oxygen desaturation during sleep G47.34 Active Problem retirement 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 Active Problem History of DVT (deep vein thrombosis) Z86.718 Active Problem Diabetes type 2, uncontrolled E11.65 Active Problem Type 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 Active Assessment Skin tags, multiple acquired L91.8 Active Problem Depression, unspecified depression type F32.9 Active Problem Anemia in other chronic diseases classified elsewhere D63.8 Active Problem Primary insomnia F51.01 Active Medications Medication Code System Code Instructions Start Date End Date Status Dosage Albuterol Sulfate [facility] [address]-87 90 mcg/actuation 2 puffs by Inhalation route every 4-6 hours as needed PRN cough or wheezing Trazodone HCl [facility] 07681939080 150 MG Orally Once a day at bedtime as needed 1 tablet Ferrous Sulfate [facility] [address]-88 325 (65 Fe) MG Orally Twice a day December 1 tablet Advair Diskus [facility] [address]-95 100 mcg-50 mcg 1 puffs by Inhalation route 2 times per day (rinse mouth and throat after use) Insulin Syringe-Needle U-100 ND 0 29G X 1/2 subcutaneously 5 times per day January 08, 2016 as directed Levemir [facility] 71677949973 100 UNIT/ML Subcutaneous 2 times a day 95 Units BD Insulin Syringe [facility] 8290-638413 31G X 5/16 subcutaneously with insulin January 03, 2016 as directed Xarelto [facility] [address]-10 20 MG Orally Once a day 1 tablet with food Oxygen NDC 0 2.5 L at hs and prn not defined Torsemide [facility] 44507841528 100 MG Orally Once a day 1/2 tablet Humalog [facility] [address]-17 100 UNIT/ML Subcutaneous 3 times a day 15 units Tramadol HCl [facility] [address]-15 50 mg Orally every 6 hrs, may take up to 3 times daily 1 tablet as needed for pain Seroquel [facility] [address]-11 50 mg Orally Once a day at bedtime 1 tablet Verapamil HCl CR [facility] [address]-18 240 MG Orally Once a day in the morning with food 1 tablet Gabapentin [facility] 69577650381 600 MG Orally Three times a day take 1 tablet Multivitamin [facility] 8[address]682 Orally Once a day December 10, 2011 1 tablet Savella [facility] [address]-95 100 MG Orally Twice a day 1 tablet Melatonin [facility] 63[address]28 10 mg 2 Tablet by Oral route 1 time per dayat bedtime Protonix [facility] [address]-48 40 MG Orally Once a day 1 tablet Biotin [facility] 06[address]112 1000 MCG Orally Once a day 1 tablet Glucometer ND 0 ... DX: 250.40 as directed Lipitor [facility] [address]-04 40 MG Orally Once a day 1 tablet Cozaar [facility] 81499097050 50 MG Orally Once a day 1 tablet Fish Oil Concentrate [facility] 44490-[address]01 1000 MG Orally Twice a day. 2 in AM, 1 in PM Apr 12, 2012 1 capsule BD Pen ND 0 BD PEN NEEDLE MARSHA subcut 3 times a day as directed Test strips ND 0 ... 3 times a day, DX: 250.40 True Test iFerex 150 [facility] [address]-01 150 MG Orally 3 times a day 1 capsule Victoza [facility] [address]-19 0.6 mg/0.1 mL (18 mg/3 mL) Subcutaneous Once a day 1.8 mg Procedures Procedure Coding System Code Date Office Visit, Est Pt., Level 2 CPT-4 39211 Feb 04, 2016 REMOVAL OF SKIN TAGS CPT-4 06938 Feb 04, 2016 Vital Signs Date/Time: Feb 04, 2016 Cardiac Monitoring Heart Rate 90 bpm Weight 331.0 lbs Height 64 in BMI 56.81 Index Blood Pressure Diastolic 82 mmHg Blood Pressure Systolic 140 mmHg Results No Known Results Summary Purpose eClinicalWorks Submission
--- OUTSIDE RECORDS SUMMARY | 2017-10-06 07:03 | XMS REPORT ---
Author Author CHELSY VILLAFANA [facility] eClinicalWorks Address Unknown Phone Unavailable Care Team Providers Care Aix Architect Name Role Phone CHELSY VILLAFANA CP Unavailable Allergies, Adverse Reactions, Alerts Substance Reaction Event Type Sulfamethoxazole-Trimethoprim hives Drug Allergy Penicillin V Potassium anaphylaxis Drug Allergy plastic tape rash Non Drug Allergy Problems Problem Type Condition Code Onset Dates Condition Status Assessment Renal failure, chronic, stage 4 (severe) N18.4 Active Assessment Depression, unspecified depression type F32.9 Active Assessment Primary insomnia F51.01 Active Assessment Essential hypertension I10 Active Problem Depression, unspecified depression type F32.9 Active Assessment Gastroesophageal reflux disease without esophagitis K21.9 Active Problem Primary insomnia F51.01 Active Assessment Sleep apnea in adult G47.33 Active Problem Essential hypertension I10 Active Problem Sleep apnea in adult G47.33 Active Problem Gastroesophageal reflux disease without esophagitis K21.9 Active Problem Iron deficiency anemia due to chronic blood loss D50.0 Active Problem Chronic obstructive pulmonary disease, unspecified COPD type J44.9 Active Assessment History of DVT (deep vein thrombosis) Z86.718 Active Assessment Chronic pain syndrome G89.4 Active Problem Diabetic 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 Active Assessment Oxygen desaturation during sleep G47.34 Active Problem Chronic pain syndrome G89.4 Active Problem Oxygen desaturation during sleep G47.34 Active Problem terminal gauger 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 Active Problem History of DVT (deep vein thrombosis) Z86.718 Active Assessment Iron deficiency anemia due to chronic blood loss D50.0 Active Assessment Diabetic 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 Active Assessment [facility] 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 Active Assessment Chronic obstructive pulmonary disease, unspecified COPD type J44.9 Active Problem Diabetes type 2, uncontrolled E11.65 Active Problem Type 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 Active Assessment Type 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 Active Problem Anemia in other chronic diseases classified elsewhere D63.8 Active Medications Medication Code System Code Instructions Start Date End Date Status Dosage Protonix [facility] [address]-99 40 MG Orally Once a day 1 tablet Fish Oil Concentrate [facility] 48[address]238 1000 MG Orally Twice a day. 2 in AM, 1 in PM Apr 12, 2012 1 capsule Victoza [facility] [address]-09 0.6 mg/0.1 mL (18 mg/3 mL) Subcutaneous Once a day 1.8 mg Levemir [facility] 93132714716 100 UNIT/ML Subcutaneous 2 times a day 95 Units Verapamil HCl CR [facility] [address]-60 240 MG Orally Once a day in the morning with food 1 tablet Cozaar [facility] 26974784075 50 MG Orally Once a day 1 tablet Trazodone HCl [facility] 06456164505 150 MG Orally Once a day at bedtime as needed 1 tablet Multivitamin [facility] 438[address] Orally Once a day December 10, 2011 1 tablet Seroquel [facility] [address]-73 50 mg Orally Once a day at bedtime 1 tablet Oxygen ND 0 2.5 L at hs and prn not defined Albuterol Sulfate [facility] [address]-20 90 mcg/actuation 2 puffs by Inhalation route every 4-6 hours as needed PRN cough or wheezing Xarelto [facility] [address]-63 20 MG Orally Once a day 1 tablet with food Gabapentin [facility] 67105201429 600 MG Orally Three times a day take 1 tablet Torsemide [facility] 01723870194 100 MG Orally Once a day 1/2 tablet BD Insulin Syringe [facility] 8290-765832 31G X 5/16 subcutaneously with insulin January 03, 2016 as directed Humalog [facility] [address]-71 100 UNIT/ML Subcutaneous 3 times a day 15 units iFerex 150 [facility] [address]-27 150 MG Orally 3 times a day 1 capsule Insulin Syringe-Needle U-100 ND 0 29G X 1/2" 0.25 ML subcutaneously 5 times per day as directed Tramadol HCl [facility] [address]-70 50 mg Orally every 6 hrs, may take up to 3 times daily 1 tablet as needed for pain Glucometer ND 0 ... DX: 250.40 as directed Lipitor [facility] [address]-64 40 MG Orally Once a day 1 tablet Test strips NDC 0 ... 3 times a day, DX: 250.40 True Test Advair Diskus [facility] [address]-51 100 mcg-50 mcg 1 puffs by Inhalation route 2 times per day (rinse mouth and throat after use) BD Pen NDC 0 BD PEN NEEDLE MARSHA subcut 3 times a day as directed Savella [facility] [address]-71 100 MG Orally Twice a day 1 tablet Biotin [facility] 24951-[address]74 1000 MCG Orally Once a day 1 tablet Melatonin [facility] [address]273 10 mg 2 Tablet by Oral route 1 time per dayat bedtime Ferrous Sulfate [facility] [address]-08 325 (65 Fe) MG Orally Twice a day December 1 tablet Procedures Procedure Coding System Code Date Office Visit, Est Pt., Level 4 CPT-4 62338 Feb 13, 2016 Vital Signs Date/Time: Feb 13, 2016 Cardiac Monitoring Heart Rate 88 bpm Weight 331.0 lbs Height 64 in BMI 56.81 Index Blood Pressure Diastolic 82 mmHg Blood Pressure Systolic 140 mmHg Results No Known Results Summary Purpose eClinicalWorks Submission
--- OUTSIDE RECORDS SUMMARY | 2017-10-06 07:03 | XMS REPORT ---
Author Author CHELSY VILLAFANA [facility] Address [address] [place] [address] Care Team Providers Care Landscaping Specialist Name Role Phone CHELSY VILLAFANA Unavailable PROBLEMS Type Condition ICD9-CM Code [id number] Code Onset Dates Condition Status SNOMED Code Problem Chronic obstructive pulmonary disease, unspecified COPD type J44.9 Active 81345686 Problem Diabetic 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 Active 90598717 Problem Iron deficiency anemia due to chronic blood loss D50.0 Active 45992962 Problem detention 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 Active 836446963 Problem Anemia in other chronic diseases classified elsewhere D63.8 Active 589745047 Problem detention (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 Active 001508488 Problem Right carpal tunnel syndrome G56.01 Active 527312964863153 Problem 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 Active 199138351942761 Problem Type 2 diabetes mellitus with hyperglycemia E11.65 Active 817019712409538 Problem Chronic kidney disease, stage 4 (severe) N18.4 Active 461162270 Problem Paresthesia of right upper extremity R20.2 Active 66347514 Problem Psoriasis of scalp L40.9 Active 368816690 Problem Primary insomnia F51.01 Active 2689020 Problem Essential hypertension I10 Active 52432247 Problem Type 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 Active 405779621 Problem Depression, unspecified depression type F32.9 Active 59822075 Problem Oxygen desaturation during sleep G47.34 Active 422753274 Problem Chronic pain syndrome G89.4 Active 781164253 Problem Gastroesophageal reflux disease without esophagitis K21.9 Active 587013840 Problem History of DVT (deep vein thrombosis) Z86.718 Active 997820085 Problem Sleep apnea in adult G47.33 Active 84878828 Problem detention 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 Active 986043978 ALLERGIES Unknown Allergies SOCIAL HISTORY No smoking Hx information available PLAN OF CARE VITAL SIGNS MEDICATIONS Unknown Medications RESULTS No Results PROCEDURES No Known procedures IMMUNIZATIONS No Known Immunizations
--- OUTSIDE RECORDS SUMMARY | 2017-10-06 07:03 | XMS REPORT ---
Author Author CHELSY VILLAFANA [facility] eClinicalWorks Address Unknown Phone Unavailable Care Team Providers Care Tube Maker Name Role Phone CHELSY VILLAFANA CP Unavailable [...] Oxygen desaturation during sleep G47.34 Active Problem nursing home 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 Active Problem History of DVT (deep vein thrombosis) Z86.718 Active Problem Diabetes type 2, uncontrolled E11.65 Active Problem Type 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 Active Assessment Anemia in other chronic diseases classified elsewhere D63.8 Active Problem Depression, unspecified depression type F32.9 Active Problem Anemia in other chronic diseases classified elsewhere D63.8 Active Problem Primary insomnia F51.01 Active Medications Medication Code System Code Instructions Start Date End Date Status Dosage Oxygen [facility] 0 2 L/NC continous .... Carafate [facility] [address]-90 1 GM Orally Twice a day 1 tablet on an empty stomach MiraLax [facility] [address]-74 17 gm/dose Orally PRN 17 grams mixed in 8 oz of water or juice Results No Known Results Summary Purpose eClinicalWorks Submission
--- OUTSIDE RECORDS SUMMARY | 2017-10-06 07:04 | XMS REPORT ---
Author Author CHELSY VILLAFANA [facility] Address [address] [place] [address] Care Team Providers Care Lens Mold Setter Name Role Phone CHELSY VILLAFANA Unavailable PROBLEMS Type Condition ICD9-CM Code CLS03-FY Code Onset Dates Condition Status SNOMED Code Problem Sleep apnea in adult G47.33 Active 68873603 Problem Primary insomnia F51.01 Active 0183325 Problem Chronic pain syndrome G89.4 Active 493558673 Problem detention (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 Active 331001757 Problem Anemia in other chronic diseases classified elsewhere D63.8 Active 230774471 Problem detention 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 Active 008117718 Problem Right carpal tunnel syndrome G56.01 Active 549926111235520 Problem 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 Active 966123727706140 Problem Chronic kidney disease, stage 4 (severe) N18.4 Active 614281041 Problem Type 2 diabetes mellitus with hyperglycemia E11.65 Active 389770472418389 Problem Psoriasis of scalp L40.9 Active 396893564 Problem Paresthesia of right upper extremity R20.2 Active 86914008 Problem Iron deficiency anemia due to chronic blood loss D50.0 Active 02136589 Problem Gastroesophageal reflux disease without esophagitis K21.9 Active 583282596 Problem Type 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 Active 503316947 Problem Diabetic 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 Active 00515123 Problem detention 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 Active 637182334 Problem Essential hypertension I10 Active 20740685 Problem Chronic obstructive pulmonary disease, unspecified COPD type J44.9 Active 25898417 Problem Oxygen desaturation during sleep G47.34 Active 060265155 Problem History of DVT (deep vein thrombosis) Z86.718 Active 209208775 Problem Depression, unspecified depression type F32.9 Active 61315243 ALLERGIES Unknown Allergies SOCIAL HISTORY No smoking Hx information available PLAN OF CARE VITAL SIGNS MEDICATIONS Unknown Medications RESULTS No Results PROCEDURES No Known procedures IMMUNIZATIONS No Known Immunizations
--- OUTSIDE RECORDS SUMMARY | 2017-10-06 07:04 | XMS REPORT ---
Author Author CHELSY VILLAFANA [facility] Address [address] [place] [address] Care Team Providers Care Solution Professional Name Role Phone CHELSY VILLAFANA Unavailable PROBLEMS Type Condition ICD9-CM Code [id number] Code Onset Dates Condition Status SNOMED Code Problem Gastroesophageal reflux disease without esophagitis K21.9 Active 853141075 Problem Oxygen desaturation during sleep G47.34 Active 563504068 Problem Sleep apnea in adult G47.33 Active 37116692 Problem Diabetic 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 Active 45555776 Problem Iron deficiency anemia due to chronic blood loss D50.0 Active 54874124 Problem History of DVT (deep vein thrombosis) Z86.718 Active 486057923 Problem Chronic pain syndrome G89.4 Active 341039788 Problem Chronic obstructive pulmonary disease, unspecified COPD type J44.9 Active 87277676 Problem [facility] 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 Active 632093449 Assessment Chronic pain syndrome G89.4 14 Mar, 2016 Active 261850707 Problem Type 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 Active 623466196 Problem Depression, unspecified depression type F32.9 Active 89849934 Problem Anemia in other chronic diseases classified elsewhere D63.8 Active 331517627 Problem Primary insomnia F51.01 Active 0115539 Problem Diabetes type 2, uncontrolled E11.65 Active 597824804 Problem Essential hypertension I10 Active 98680753 ALLERGIES Unknown Allergies SOCIAL HISTORY No smoking Hx information available PLAN OF CARE VITAL SIGNS MEDICATIONS Unknown Medications RESULTS No Results PROCEDURES No Known procedures IMMUNIZATIONS No Known Immunizations
--- OUTSIDE RECORDS SUMMARY | 2017-10-06 07:04 | XMS REPORT ---
Author Author CHELSY VILLAFANA Organization [employer] Address Unknown Phone Unavailable Care Team Providers Care Department Sales Manager Name Role Phone CHELSY VILLAFANA CP Unavailable [...] Oxygen desaturation during sleep G47.34 Active Problem [facility] 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 Active Problem [...] Instructions Start Date End Date Status Dosage Cozaar [facility] [id number] 50 MG Orally Once a day 1 tablet Torsemide [facility] [id number] 100 MG Orally Once a day 1/2 tablet Results No Known Results Summary Purpose [employer] Submission
--- OUTSIDE RECORDS SUMMARY | 2017-10-06 07:04 | XMS REPORT ---
Author Author CHELSY VILLAFANA [facility] Address [address] [place] [address] Care Team Providers Care Lapel Padder Name Role Phone CHELSY VILLAFANA Unavailable PROBLEMS Type Condition ICD9-CM Code [id number] Code Onset Dates Condition Status SNOMED Code Problem Gastroesophageal reflux disease without esophagitis K21.9 Active 770229776 Problem Oxygen desaturation during sleep G47.34 Active 158458710 Problem Sleep apnea in adult G47.33 Active 94913387 Problem Diabetic 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 Active 57047971 Problem Iron deficiency anemia due to chronic blood loss D50.0 Active 02443678 Problem History of DVT (deep vein thrombosis) Z86.718 Active 086835898 Problem Chronic pain syndrome G89.4 Active 147747397 Problem Chronic obstructive pulmonary disease, unspecified COPD type J44.9 Active 86898994 Problem residential 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 Active 779256603 Problem Type 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 Active 315258156 Problem Depression, unspecified depression type F32.9 Active 19650855 Problem Anemia in other chronic diseases classified elsewhere D63.8 Active 692903612 Problem Primary insomnia F51.01 Active 5781983 Problem Diabetes type 2, uncontrolled E11.65 Active 920871793 Problem Essential hypertension I10 Active 27605485 ALLERGIES Unknown Allergies SOCIAL HISTORY No smoking Hx information available PLAN OF CARE VITAL SIGNS MEDICATIONS Medication Instructions Dosage Frequency Start Date End Date Duration Status Lipitor 40 mg Orally Once a day 1 tablet 24h Active Xarelto 20 mg Orally Once a day 1 tablet with food 24h Active Gabapentin 600 MG Orally Three times a day take 1 tablet 8h Active RESULTS No Results PROCEDURES No Known procedures IMMUNIZATIONS No Known Immunizations
--- OUTSIDE RECORDS SUMMARY | 2017-10-06 07:05 | XMS REPORT ---
Author Author KATLYN SAXENA Organization [employer] Address Unknown Phone Unavailable Care Team Providers Care Travel Agency Manager Name Role Phone KATLYN SAXEAN CP Unavailable Allergies No Known Allergies Problems Problem Type Condition Code Onset Dates Condition Status Problem Other and unspecified hyperlipidemia 272.4 Active [...] unspecified 585.9 Active Medications No Known Medications Results No Known Results Summary Purpose [employer] Submission
--- OUTSIDE RECORDS SUMMARY | 2017-10-06 07:05 | XMS REPORT ---
Author Author CHELSY VILLAFANA [facility] Address [address] [place] [address] Care Team Providers Care Vein Pumper Name Role Phone CHELSY VILLAFANA Unavailable PROBLEMS Type Condition ICD9-CM Code CVR56-TQ Code Onset Dates Condition Status SNOMED Code Problem Sleep apnea in adult G47.33 Active 54190529 Problem Primary insomnia F51.01 Active 1100192 Problem Chronic pain syndrome G89.4 Active 492544632 Problem nursing project coordinator (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 Active 960952895 Problem Anemia in other chronic diseases classified elsewhere D63.8 Active 742637409 Problem snf 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 Active 226279416 Problem Right carpal tunnel syndrome G56.01 Active 471629739330993 Problem 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 Active 407717188853179 Problem Chronic kidney disease, stage 4 (severe) N18.4 Active 415662664 Problem Type 2 diabetes mellitus with hyperglycemia E11.65 Active 933046249564183 Problem Psoriasis of scalp L40.9 Active 130779967 Problem Paresthesia of right upper extremity R20.2 Active 96899839 Problem Iron deficiency anemia due to chronic blood loss D50.0 Active 54361464 Problem Gastroesophageal reflux disease without esophagitis K21.9 Active 756444999 Problem Type 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 Active 471068759 Problem Diabetic 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 Active 88544057 Problem snf 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 Active 394478358 Problem Essential hypertension I10 Active 31875506 Problem Chronic obstructive pulmonary disease, unspecified COPD type J44.9 Active 09052891 Problem Oxygen desaturation during sleep G47.34 Active 644484927 Problem History of DVT (deep vein thrombosis) Z86.718 Active 506616907 Problem Depression, unspecified depression type F32.9 Active 22782574 ALLERGIES No Information SOCIAL HISTORY Never Assessed [...] Dialysis [facility]es 2012 -Dr. Simon now [facility] Medical History Colonoscopy (polyps 2 ) [...]
--- OUTSIDE RECORDS SUMMARY | 2017-10-06 07:05 | XMS REPORT ---
Author Author KATLYN SAXENA Organization [employer] Address Unknown Phone Unavailable Care Team Providers Care Desk Maker Name Role Phone KATLYN SAXENA CP Unavailable Allergies No Known Allergies Problems Problem Type Condition ICD-9 Code Onset Dates Condition Status Assessment Positive occult stool blood test 792.1 Active Problem Other and unspecified hyperlipidemia 272.4 [...]
--- OUTSIDE RECORDS SUMMARY | 2017-10-06 07:05 | XMS REPORT ---
Author Author BREANN FIGUEROA [facility] Address [address] [place] [address] Care Team Providers Care Manager Military Name Role Phone BREANN FIGUEROA Unavailable PROBLEMS Type Condition ICD9-CM Code HOC92-TG Code Onset Dates Condition Status SNOMED Code Problem Sleep apnea in adult G47.33 Active 05117110 Problem Primary insomnia F51.01 Active 9202631 Problem Chronic pain syndrome G89.4 Active 246968308 Problem assisted (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 Active 825155813 Problem Anemia in other chronic diseases classified elsewhere D63.8 Active 765889517 Problem 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 Active 504629753 Problem Right carpal tunnel syndrome G56.01 Active 893726046901558 Problem 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 Active 909508030736717 Problem Chronic kidney disease, stage 4 (severe) N18.4 Active 235453357 Problem Type 2 diabetes mellitus with hyperglycemia E11.65 Active 577568059281418 Problem Psoriasis of scalp L40.9 Active 635267100 Problem Paresthesia of right upper extremity R20.2 Active 91707033 Problem Iron deficiency anemia due to chronic blood loss D50.0 Active 56256348 Problem Gastroesophageal reflux disease without esophagitis K21.9 Active 872757751 Problem Type 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 Active 553871921 Problem Diabetic 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 Active 64134336 Problem assisted 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 Active 423812205 Problem Essential hypertension I10 Active 40296244 Problem Chronic obstructive pulmonary disease, unspecified COPD type J44.9 Active 51172669 Problem Oxygen desaturation during sleep G47.34 Active 038010668 Problem History of DVT (deep vein thrombosis) Z86.718 Active 526102970 Problem Depression, unspecified depression type F32.9 Active 57545375 ALLERGIES Substance Reaction Event Type Date Status Sulfamethoxazole-Trimethoprim hives Drug Allergy 30 [place], 2017 Active Penicillin V Potassium anaphylaxis Drug Allergy Jul, Active plastic tape rash Non Drug Allergy Jul, Active SOCIAL HISTORY No smoking Hx information available PLAN OF CARE Activity Details Follow Up as scheduled with PCP Reason: VITAL SIGNS Height 64 in 2016-08-03 Weight 330.0 lbs 2016-08-03 Temperature 98.1 degrees Fahrenheit 2016-08-03 Heart Rate 92 bpm 2016-08-03 Respiratory Rate 20 2016-08-03 BMI 56.64 kg/m2 2016-08-03 Blood pressure systolic 138 mmHg 2016-08-03 Blood pressure diastolic 78 mmHg 2016-08-03 MEDICATIONS Medication Instructions Dosage Frequency Start Date End Date Duration Status Tresiba FlexTouch 200 UNIT/ML ICD10- E11.29 daily 100 units 24h Jul, Active Victoza 18 MG/3ML INJECT (1.8 MG) SUBCUTANEOUSLY ONCE DAILY. Active BD Pen BD PEN NEEDLE LOVELY subcut 3 times a day as directed 8h Active BD Pen Needle Lovely U/F 32G X 4 MM USE DIRECTED THREE (3) TIMES DAILY. Active Glucometer ... as directed Active Albuterol Sulfate 90 mcg/actuation inhalation every 4-6 hours as needed 1-2 puffs Active Trazodone HCl 150 MG Orally Once a day at bedtime as needed 1 tablet Active Tramadol HCl 50 mg Orally every 6 hrs, may take up to 3 times daily 1 tablet as needed for pain Active Melatonin 10 mg 2 Tablet by Oral route 1 time per dayat bedtime Active Advair Diskus 100 mcg-50 mcg inhalation bid, rinse mouth afterwards 1 puffs Active Torsemide 100 MG Orally Once a day 1/2 tablet 24h 30 Active Verapamil HCl CR 240 MG Orally Once a day in the morning with food 1 tablet Active Test strips ... True Test Active Triamcinolone Acetonide 0.1 % Externally Twice a day 1 application to affected area 12h Mar, Active Carafate 1 GM Orally Twice a day 1 tablet on an empty stomach 12h Active Gabapentin 600 MG Orally Three times a day take 1 tablet 8h Active Seroquel 50 mg Orally Once a day at bedtime 1 tablet Active Insulin Syringe-Needle U-100 29G X 1/2 subcutaneously 5 times per day as directed Active Fish Oil Concentrate 1000 MG Orally Twice a day. 2 in AM, 1 in PM 1 capsule Apr, Active Xarelto 20 mg Orally Once a day-Must keep appt with Dr. Figueroa 1 tablet with food 14 days Active BD Insulin Syringe 31G X 5/16 subcutaneously with insulin as directed Jan, Active Protonix 40 MG Orally Once a day 1 tablet 24h Active Multivitamin Orally Once a day 1 tablet 24h 07 Dec, 2011 Active Ferrous Sulfate 325 (65 Fe) MG Orally Twice a day 1 tablet 12h 30 Active Tretinoin 0.025 % 1 Application by Topical route 1 time per day May Active Oxygen 2 L/NC .... daily Active MiraLax 17 gm/dose Orally PRN 17 grams mixed in 8 oz of water or juice Active Biotin 1000 MCG Orally Once a day 1 tablet 24h Active Cozaar 50 MG Orally Once a day 1 tablet 24h Active Lipitor 40 mg Orally Once a day 1 tablet 24h Active NovoLog Flexpen 100 UNIT/ML ICD10- E11.29 3 times a day with meals 50 Jul, Active RESULTS No Results PROCEDURES Procedure Date Ordered Related Diagnosis Body Site Office Visit, Est Pt., Level 4 Aug 03, 2016 IMMUNIZATIONS No Known Immunizations
--- OUTSIDE RECORDS SUMMARY | 2017-10-06 07:05 | XMS REPORT ---
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 Active 644773984 Problem 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 Active 425961277928414 Problem Chronic kidney disease, stage 4 (severe) N18.4 Active 085020280 Problem Type 2 diabetes mellitus with hyperglycemia E11.65 Active 957523329126258 Problem Psoriasis of scalp L40.9 Active 926396745 Problem Paresthesia of right upper extremity R20.2 Active 70179664 Problem Diabetic 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 Active 04929379 Problem Gastroesophageal reflux disease without esophagitis K21.9 Active 196130884 Problem Anemia in other chronic diseases classified elsewhere D63.8 Active 536284687 Problem Type 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 Active 072198688 Problem Depression, unspecified depression type F32.9 Active 96917502 Problem History of DVT (deep vein thrombosis) Z86.718 Active 246336568 Problem Chronic obstructive pulmonary disease, unspecified COPD type J44.9 Active 50839161 Problem 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 Active 553444819 Problem Oxygen desaturation during sleep G47.34 Active 836523196 Problem Essential hypertension I10 Active 95129136 ALLERGIES No Information ENCOUNTERS Encounter Location Date Diagnosis [facility] [id number] [place] [address] 32691- 3740 Oct, [facility] [address], [place] [address] 160[address] 15 Aug, 2017 Type 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 [facility] [id number] [place] [address] 23462- 4944 12 Aug, 2017 Gastroesophageal reflux disease without esophagitis K21.9 ; 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 ; Chronic pain syndrome G89.4 ; Essential hypertension I10 and Type 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 [place] [id number] [place] [address] 04041- 7527 08 Aug, 2017 Chronic pain syndrome G89.4 [facility] [id number] [place] [address] 59497- 5127 Aug, Type 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 [place] [id number] [place] [address] 73707- 8930 Jul, Diabetic 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 [place] [id number] [place] [address] 96874- 3474 Jul, Primary insomnia F51.01 [facility] [id number] [place] [address] 48070- 8148 Jul, [place] [id number] [place] [address] 71375- 3191 Jul, Type 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 and Chronic obstructive pulmonary disease, unspecified COPD type J44.9 [facility] [id number] [place] [address] 99608- 8972 Jul, Type 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 [facility] [id number] [place] [address] 57089- 7510 Jun, Type 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 [place] [id number] [place] [address] 09944- 1951 Jun, [place] [id number] [place] [address] 92709- 1207 Jun, Chronic obstructive pulmonary disease, unspecified COPD type J44.9 [place] [id number] [place] [address] 06775- 7697 May, Type 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 [id number] [place] [address] 50289- 8176 May, assisted 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 and Essential hypertension I10 [address] 18381- 4353 May, Anemia in other chronic diseases classified elsewhere D63.8 ; Chronic obstructive pulmonary disease, unspecified COPD type J44.9 ; Oxygen desaturation during sleep G47.34 ; Sleep apnea in adult G47.33 and Supplemental oxygen dependent Z99.81 [address] [id number] [place] [address] 23749- 7893 May, Type 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 ; Essential hypertension I10 ; Chronic pain syndrome G89.4 ; BMI 40.0-44.9, adult Z68.41 ; Gastroesophageal reflux disease without esophagitis K21.9 ; assisted 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 ; assisted 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 ; Diabetic 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 ; Edema of both legs R60.0 and Supplemental oxygen dependent Z99.81 [place] [address], [place] [address] 1689 May, [address] [id number] [place] [address] 90435- 3534 May, Essential hypertension I10 and Gastroesophageal reflux disease without esophagitis K21.9 [address] [address] [id number] [place] [address] 51583- 1443 May, [address] [id number] [place] [address] 40562- 8643 May, Type 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 and 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 [place] [id number] [place] [address] 12894- 1208 Apr, Chronic pain syndrome G89.4 and Essential hypertension I10 [place] [id number] [place] [address] 16712- 3364 Apr, Type 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 [place] [id number] [place] [address] 39608- 3296 Apr, Type 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 [place] [id number] [place] [address] 09352- 3093 Apr, Essential hypertension I10 [place] [id number] [place] [address] 51667- 9109 Apr, Gastroesophageal reflux disease without esophagitis K21.9 [place] [id number] [place] [address] 86257- 9978 Apr, Type 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 [place] [id number] [place] [address] 48785- 1250 Apr, Type 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 and 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 [place] [id number] [place] [address] 59837- 9433 Mar, Encounter for immunization Z23 and Preoperative examination Z01.818 [place] [id number] [place] [address] 75367- 2567 Mar, [place] [id number] [place] [address] 88043- 1496 Mar, Type 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 [place] [id number] [place] [address] 52188- 3857 Mar, Type 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 [facility] [address], [place] [address] 2546 Mar, Gastroesophageal reflux disease without esophagitis K21.9 [facility] [address], [place] [address] 2546 Mar, Essential hypertension I10 [facility] [id number] [place] [address] 34541 2546 Feb, assisted 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 [facility] [id number] [place] [address] 03832 2546 Feb, Type 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 [facility] [id number] [place] [address] 12896- 0686 Feb, Type 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 [facility] [id number] [place] [address] 85212- 9758 Feb, Type 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 [facility] [id number] [place] [address] 56751- 0602 Feb, Gastroesophageal reflux disease without esophagitis K21.9 [facility] [address] [place] [address] 83528- 6824 Feb, Type 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 [facility] [address], [place] [address] 2546 Feb, 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 [facility] [address], [place] [address]- 2546 Jan, Type 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 [facility] [address], [place] [address]- 2546 Jan, Type 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 [facility] [id number] [place] [address] 70469- 9744 Jan, Chronic pain syndrome G89.4 [facility] [address], [place] [address]- 6692 Jan, [facility] [address], [place] [address] 1954 Jan, [facility] [address], [place] [address]- 6947 Jan, [facility] [address], [place] [address]- 6092 Jan, [facility] [address] [place] [address] 15769- 5281 Jan, Primary insomnia F51.01 ; Type 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 ; Chronic pain syndrome G89.4 and Essential hypertension I10 [facility] [address], [place] [address]- 9639 Jan, Primary insomnia F51.01 [facility] [address], [place] [address]- 2603 Jan, 2017 Type 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 [facility] [address], [place] [address]- 9461 Jan, [facility] [address], [place] [address]- 6325 Jan, Chronic obstructive pulmonary disease, unspecified COPD type J44.9 [facility] [id number], [place] [address]- 9274 Jan, Essential hypertension I10 ; Type 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 ; Chronic obstructive pulmonary disease, unspecified COPD type J44.9 ; Chronic kidney disease, stage 4 (severe) N18.4 ; Right carpal tunnel syndrome G56.01 ; 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 ; 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 (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 and Diabetic 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 [facility] [address], [place] [address]- 2976 Jan, Gastroesophageal reflux disease without esophagitis K21.9 [facility] [id number] [place] [address] 50585- 9406 Dec, [facility] [id number] [place] [address] 64140- 0906 Dec, [facility] [id number] [place] [address] 74659- 8760 Dec, assisted 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 ; Chronic pain syndrome G89.4 and Essential hypertension I10 [facility] [id number] [place] [address] 75856- 8026 Dec, [facility] [id number] [place] [address] 43268- 3954 Dec, Type 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 [facility] [address] [address]- 4318 Dec, [facility] [id number] [place] [address] 09494- 1561 Dec, Gastroesophageal reflux disease without esophagitis K21.9 [facility] [address], [place] [address]- 4003 November, Type 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 [facility] [address], [place] [address]- 4096 November, [facility] [address], [place] [address]- 7407 November, Type 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 [facility] [address], [place] [address]- 6240 November, [facility] [address], [place] [address]- 4098 November, Type 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 [place] [address], [place] [address]- 4904 November, [place] [address] [place] [address] 29195- 0970 Oct, Essential hypertension I10 [place] [address] [place] [address] 82778- 2395 Oct, Psoriasis of scalp L40.9 [place] [id number] [place] [address] 88609- 1242 Oct, Essential hypertension I10 and Chronic pain syndrome G89.4 [place] [id number] [place] [address] 97131- 5837 Oct, [place] [id number] [place] [address] 59180- 6302 Sep, Type 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 [place] [address] [place] [address] 73695- 9501 Sep, [place] [address] [place] [address] 76082- 0566 Sep, Type 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 [place] [address], [place] [address]- 3020 Sep, Type 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 [place] [address], [place] [address]- 2996 Sep, Type 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 ; Chronic kidney disease, stage 4 (severe) N18.4 ; Chronic obstructive pulmonary disease, unspecified COPD type J44.9 ; Iron deficiency anemia due to chronic blood loss D50.0 ; assisted 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 ; Gastroesophageal reflux disease without esophagitis K21.9 ; Essential hypertension I10 ; Primary insomnia F51.01 ; Depression, unspecified depression type F32.9 ; Chronic pain syndrome G89.4 ; Wrist pain, right M25.531 ; Paresthesia of right upper extremity R20.2 and Psoriasis of scalp L40.9 [facility] [address], [place] [address]- 5615 Sep, [facility] [id number] [place] [address] 65373- 3389 Aug, Essential hypertension I10 [facility] [id number] [place] [address] 90837- 2305 Aug, History of DVT (deep vein thrombosis) Z86.718 [facility] [id number] [place] [address] 73166- 3105 Aug, [facility] [id number] [place] [address] 82570- 2770 Jul, [facility] [id number] [place] [address] 43088- 3028 Jul, [facility] [id number] [place] [address] 96082- 7680 Jul, assisted 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 ; Chronic pain syndrome G89.4 and Chronic kidney disease, stage 4 (severe) N18.4 [facility] [id number] [place] [address] 37392- 6960 Jul, [facility] [id number] [place] [address] 11861- 5816 Jul, [facility] [id number] [place] [address] 62234- 1266 Jul, [facility] [address] [place] [address] 50743- 8723 Jul, [facility] [id number] [place] [address] 41812- 5786 Jul, [facility] [address] [place] [address] 54971- 4897 Jul, Type 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 [place] [address], [place] [address]- 3187 16 Jul, 2016 History of DVT (deep vein thrombosis) Z86.718 [place] [address], [place] [address]- 8535 Jun, [place] [address] [place] [address] 51022- 6373 Jun, History of DVT (deep vein thrombosis) Z86.718 [place] [address] [place] [address] 86617- 4956 15 Jun, 2016 Post traumatic stress disorder (PTSD) F43.10 [place] [id number] [place] [address] 63351- 5567 07 Jun, 2016 Type 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 ; Diabetic 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 ; Iron deficiency anemia due to chronic blood loss D50.0 ; Chronic obstructive pulmonary disease, unspecified COPD type J44.9 ; 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 ; History [...] pain M79.641 and Right wrist pain M25.531 [place] [address], [place] [address]- 2914 May, [place] [address] [place] [address] 39355- 4466 May, [place] [address], [place] [address]- 9549 May, [place] [id number] [place] [address] 10432- 3291 15 May, 2016 [facility] [address] [facility] [id number] [place] [address]- 0506 May, Anemia in other chronic diseases classified elsewhere D63.8 [facility] [address] [id number] [place] [address]- 2548 02 May, 2016 [facility] [id number] [place] [address], [place] [address]- 8418 Apr, [facility] [address] [facility] [id number] [place] [address], [place] [address]- 0879 27 Mar, 2015 Dermatofibroma D23.9 [facility] [address] [facility] [id number] [place] [address], [place] [address]- 3479 20 Mar, 2015 [facility] [address] [place] [address]- 4395 14 Mar, 2015 Chronic pain syndrome G89.4 [facility] [id number] [place] [address]- 3197 09 Mar, 2015 [facility] [id number] [place] [address]- 6588 07 Mar, 2015 [facility] [address] [place] [address]- 8341 06 Mar, 2015 [facility] [id number] [address]- 4693 Feb, [facility] [address] [facility] [id number] [address]- 2547 Feb, [facility] [address] [facility] [id number] [place] [address]- 2119 Feb, [facility] [address] [facility] [id number] [place] [address]- 6484 Feb, [facility] [address] [facility] [id number] [place] [address]- 3628 Feb, [facility] [id number] [place] [address] 50655- 8893 Feb, [facility] [id number] [place] [address] 99522- 3768 Feb, Type 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 ; Diabetic 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 ; Iron deficiency anemia due to chronic blood loss D50.0 ; Chronic obstructive pulmonary disease, unspecified COPD type J44.9 ; assisted 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 ; History of DVT (deep vein thrombosis) Z86.718 ; Chronic pain syndrome G89.4 ; Oxygen desaturation during sleep G47.34 ; Sleep apnea in adult G47.33 ; Gastroesophageal reflux disease without esophagitis K21.9 ; Essential hypertension I10 ; Primary insomnia F51.01 ; Depression, unspecified depression type F32.9 and Renal failure, chronic, stage 4 (severe) N18.4 [facility] [id number] [place] [address] 63287- 1491 Feb, Skin tags, multiple acquired L91.8 [facility] [id number] [place] [address] 13542- 4036 Jan, [facility] [address] [id number] Jan, Dental examination Z01.20 [facility] [id number] [place] [address] 72518- 3976 Jan, [place] [id number] [place] [address] 33881- 4850 Jan, Type 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 ; Diabetic 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 ; Iron deficiency anemia due to chronic blood loss D50.0 ; Chronic obstructive pulmonary disease, unspecified COPD type J44.9 ; assisted 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 ; History of DVT (deep vein thrombosis) Z86.718 ; Chronic pain syndrome G89.4 ; Oxygen desaturation during sleep G47.34 ; Sleep apnea in adult G47.33 ; Gastroesophageal reflux disease without esophagitis K21.9 ; Essential hypertension I10 ; Primary insomnia F51.01 ; Depression, unspecified depression type F32.9 ; Skin lesion L98.9 and Renal failure, chronic, stage 4 (severe) N18.4 [facility] [id number] [place] [address] 92496- 2370 Dec, Diabetes type 2, uncontrolled E11.65 [place] [address] 29829- 6801 Dec, [place] [address] 58410- 3197 Dec, Type 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 ; Diabetic 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 ; Iron deficiency anemia due to chronic blood loss D50.0 ; Chronic obstructive pulmonary disease, unspecified COPD type J44.9 ; assisted 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 ; History of DVT (deep vein thrombosis) Z86.718 ; Chronic pain syndrome G89.4 ; Oxygen desaturation during sleep G47.34 ; Sleep apnea in adult G47.33 ; Gastroesophageal reflux disease without esophagitis K21.9 ; Essential hypertension I10 ; Primary insomnia F51.01 and Depression, unspecified depression type F32.9 [facility] [address] [id number] Dec, Dental caries K02.9 [place] [id number] [place] [address] [id number] Dec, [facility] [address] [id number] Dec, Dental examination Z01.20 [facility] [address] [id number] November, Dental examination Z01.20 and Dental caries K02.9 [address] [id number] [place] [address] [id number] Oct, [place] [id number] [place] [address] [id number] Oct, [address] [id number] Sep, [facility] [address] [id number] [id number] Sep, [facility] [id number] [place] [address] [id number] Sep, [facility] [id number] [place] [address] [id number] Sep, Other chronic pain 338.29 [facility] [id number] [id number] Aug, Diabetes type 2, uncontrolled E11.65 and Morbid obesity due to excess calories E66.01 [facility] [id number] [place] [address] [id number] Aug, Hair loss L65.9 [facility] [id number] [place] [address] [id number] Aug, [facility] [id number] [place] [address] [id number] Jul, [facility] [id number] [place] [address] [id number] Jul, [facility] [id number] [place] [address] [id number] Jun, [facility] [id number] [place] [address] [id number] Jun, Hair loss L65.9 and Disorder of the skin and subcutaneous tissue, unspecified L98.9 [facility] [place] [id number], [place] [id number] May, Type 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 ; Type 2 diabetes mellitus with hyperglycemia E11.65 ; Morbid obesity due to excess calories E66.01 and Essential hypertension I10 [facility] [id number], [place] [id number] May, Diabetes type 2, uncontrolled E11.65 ; Encounter for immunization Z23 and Morbid obesity due to excess calories E66.01 [facility] [id number], [place] [id number] May, [facility] [id number] [place] [address] [id number] 7619 Apr, [facility] [address] [id number], [place] 7[address]389985 Apr, Hyperglycemia R73.9 [facility] [id number] [place] [address] [id number] Apr, [facility] [id number] [place] [address] [id number] Apr, Depression F32.9 ; Encounter for immunization Z23 ; Hyperglycemia R73.9 and Anemia in other chronic diseases classified elsewhere D63.8 [facility] [place] [id number], [place] [id number] Mar, [facility] [id number] [place] [address] [id number] Feb, Positive occult stool blood test 792.[id number] [place] [address] [id number] Feb, Depression 311 ; Other chronic pain 338.29 and Diabetes with renal manifestations, type II or unspecified type, not stated as uncontrolled 250.40 [facility] [address] [id number], [place] [address] Feb, Occult blood in stools 792.[id number] [place] [address] [id number] Feb, Anemia 285.9 ; Occult blood positive stool 792.1 ; Unspecified essential hypertension 401.9 and Other chronic pain 338.29 [facility] [address]00565100[place], [place] [id number] Feb, [facility] [id number], [place] [id number] Feb, Anemia 285.9 [address]00565100[place], [place] [id number] Feb, [facility] [address]00565100[place], [place] [id number] Feb, [facility] [address]00565100[place], [place] [id number] Feb, Diabetes with renal manifestations, type II or unspecified type, not stated as uncontrolled 250.40 ; Other chronic pain 338.29 ; Unspecified essential hypertension 401.9 ; Anemia 285.9 and Depression 311 [facility] [place] [id number], [place] [id number] Jan, [facility] [place] [id number] [place] [address] [id number] Jan, Anemia 285.9 and Follow up V67.9 [facility] [place] [id number], [place] [id number] Jan, [facility] [place] [id number] [place] [address] [id number] Jan, [facility] [place] [id number] [place] [address] [id number] Jan, [facility] [place] [id number] [place] [address] [id number] Dec, [facility] [id number] [place] [address] 57482- 6986 Oct, [facility] [id number] [place] [address] 75268- 2546 Oct, [facility] [id number] [place] [address] 37472- 4656 Sep, [facility] [place] [id number] [place] [address] [id number] Sep, [facility] [id number] [place] [address] 53836- 6356 Sep, [facility] [place] [id number], [place] [id number] Aug, [facility] [id number] [place] [address] 73326- 8482 Aug, [facility] [id number] [place] [address] 33404- 8716 Aug, [facility] [place] [address] [id number], [place] [id number] Aug, [facility] [id number] [place] [address] 32939- 2396 Aug, [facility] [place] [facility] [address] [facility] [id number][place] [address]- 7615 Aug, [facility] [place] [address] [id number], [place] [id number] Aug, [facility] [place] [facility] [address] [facility] [id number], [place] [address]- 6889 Aug, [facility] [place] [address] [id number], [place] [id number] Jul, [facility] [place] [facility] [address] [id number], [place] [address]- 4355 Jul, [facility] [place] [facility] [address] [facility] [id number] [place] [address]- 4534 Jul, [facility] [place] [address] [id number], [place] [id number] Jul, [facility] [place] [facility] [address] [facility] [id number], [place] [address]- 1436 Jul, [facility] [place] [address] [id number], [place] [id number] Jul, [facility] [place] [facility] [address] [facility] [id number], [place] [address]- 2703 Jul, [facility] [place] [address] [id number], [place] [id number] Jun, [facility] [place] [address] [id number], [place] [id number] Jun, [facility] [place] [facility] [address] [facility] [id number], [place] [address]- 3475 Jun, [facility] [place] [facility] [address] [facility] [id number][place] [address]- 8984 Jun, [facility] [place] [address] [id number], [place] [id number] Jun, [facility] [place] [facility] [address] [facility] [id number][place] [address]- 4526 Jun, [facility] [place] [address] [id number], [place] [id number] May, [facility] [place] [facility] [address] [facility] [id number], [place] [address]- 3808 May, [facility] [place] [facility] [address] [facility] [id number], [place] [address]- 6981 May, [facility] [place] [address] [facility] [id number] [place] [id number] Apr, [facility] [place] [facility] [address] [facility] [id number], [place] [address]- 0093 Apr, [facility] [place] [address] [id number] [place] [id number] Apr, [facility] [place] [address] [id number], [place] [id number] Apr, [facility] [place] [facility] [address] [facility] [id number], [place] 984490- 2603 Apr, [facility] [place] [facility] [address] [facility] [id number], [place] [address]- 5819 Apr, [facility] [place] [address] [facility] [id number], [place] [id number] Mar, [facility] [place] [facility] [address] [facility] [id number], [place] [address]- 0611 Mar, [facility] [place] [address] [facility] [id number], [place] [id number] Mar, [facility] [place] [facility] [address] [facility] [id number][place] [address]- 8633 Mar, [facility] [place] [address] [id number], [place] [id number] 16 Mar, 2014 [facility] [place] [facility] [address] [facility] [id number], [place] [address]- 6398 16 Mar, 2014 [facility] [place] [address] [id number], [place] [id number] Mar, [facility] [place] [facility] [address] [facility] [id number], [place] [address]- 4133 Mar, [facility] [place] [address] [id number] [place] [id number] Mar, [facility] [place] [facility] [address] [id number] [place] [address]- 2546 Mar, [facility] [place] [address] [id number] [place] [id number] Feb, [facility] [place] [facility] [address] [facility] [id number] [place] [address]- 2546 Feb, [facility] [place] [address] [id number] [place] [id number] Jan, [facility] [place] [facility] [address] [id number] [place] [address]- 8329 Jan, [facility] [place] [address] [facility] [id number] [place] [id number] Jan, [facility] [place] [facility] [address] [facility] [id number] [place] [address]- 0210 Jan, [facility] [place] [address] [facility] [id number], [place] [id number] Jan, [facility] [place] [facility] [address] [facility] [id number] [place] [address]- 9764 Jan, [facility] [place] [facility] [address] [facility] [id number] [place] [address]- 9165 Dec, [facility] [place] [facility] [address] [facility] [id number], [place] [address]- 2872 Dec, [facility] [place] [address] [facility] [id number] [place] [id number] November, [facility] [place] [facility] [address] [id number] [place] [address]- 7934 November, [facility] [place] [address] [facility] [id number] [place] [id number] November, [facility] [place] [facility] [address] [facility] [id number] [place] [address]- 6226 November, [facility] [place] [address] [facility] [id number] [place] [id number] Oct, [facility] [place] [facility] [address] [facility] [id number], [place] [address]- 4660 Oct, [facility] [address] [facility] [id number] [place] [address]- 0930 Oct, [facility] [place] [facility] [address] [facility] [id number] [place] [address]- 5936 Oct, [facility] [address] [facility] [id number] [place] [address]- 5026 Oct, [facility] [place] [facility] [address] [facility] [id number] [place] [address]- 2546 Oct, [facility] [place] [address] [facility] [id number] [place] [id number] Sep, [facility] [place] [address] [facility] [id number], [place] [id number] Sep, [facility] [address]00565100[place], [place] [address]- 2716 Sep, [facility] [address] [facility] [id number], [place] [address]- 6264 Sep, [facility] [place] [address] [facility] [id number], [place] [id number] Sep, [facility] [address] [facility] [id number][place] [address]- 6046 Sep, [facility] [address] [id number], [place] [address]- 7258 Aug, [facility] [place] [facility] [address] [facility] [id number], [place] [address] 2546 Aug, [facility] [place] [address] [id number], [place] [id number] Aug, [facility] [place] [address] [facility] [id number], [place] [id number] Aug, [facility] [place] [facility] [address] [facility] [id number][place] [address]- 2546 Aug, [facility] [place] [address] [facility] [id number], [place] [id number] Aug, [facility] [place] [facility] [address] [facility] [id number], [place] [address]- 2546 Aug, [facility] [place] [address] [facility] [id number], [place] [id number] Aug, [facility] [place] [facility] [address] [facility] [id number], [place] [address]- 2546 Aug, [facility] [place] [address] [facility] [id number], [place] [id number] Aug, [facility] [place] [facility] [address] [facility] [id number] [place] [address]- 2546 Aug, [facility] [place] [address] [facility] [id number], [place] [id number] Aug, [facility] [place] [facility] [address]00565100[place], [place] [address]- 1036 Aug, [facility] [place] [facility] [address] [id number], [place] [address]- 5976 Jul, [facility] [place] [address] [facility] [id number], [place] 150235429 Jun, [facility] [place] [facility] [address] [facility] [id number][place] [address]- 4926 Jun, [facility] [place] [facility] [address]00565100[place], [place] [address]- 8656 Jun, [facility] [place] [facility] [address] [facility] [id number][place] [address]- 2186 Jun, [facility] [place] [address] [facility] [id number], [place] 817857424 Jun, [facility] [place] [facility] [address] [facility] [id number][place] [address]- 8416 Jun, [facility] [place] [facility] [address] [facility] [id number], [place] [address]- 0266 Jun, [facility] [place] [address] [id number], [place] [id number] Jun, [facility] [address] [id number], [place] [address]- 8497 Jun, [facility] [place] [facility] [address] [id number] [place] [address]- 9606 May, [facility] [place] [address] [facility] [id number], [place] [id number] May, [facility] [place] [facility] [address] [id number], [place] [address]- 4627 May, [facility] [place] [facility] [address] [id number] [place] [address]- 5808 May, [facility] [place] [facility] [address] [id number] [place] [address]- 2253 May, [facility] [address] [id number], [place] [address]- 9372 May, [facility] [place] [id number], [place] [id number] May, [facility] [address] [id number], [place] [address]- 9568 May, [facility] [place] [id number], [place] [id number] May, [facility] [address] [facility] [id number], [place] [address]- 0680 May, [facility] [place] [id number], [place] 692997290 Apr, [facility] [place] [facility] [address] [id number], [place] [address]- 9746 Apr, [facility] [place] [facility] [address] [id number][place] [address]- 9788 Apr, [facility] [place] [address] [facility] [id number], [place] 580606452 Apr, [facility] [place] [facility] [address] [id number], [place] [address]- 1078 Apr, [facility] [place] [facility] [address]00565100[place], [place] [address]- 5325 Apr, [facility] [place] [address] [facility] [id number], [place] 889707538 Apr, [facility] [place] [facility] [address] [facility] [id number], [place] [address]- 2011 Apr, [facility] [place] [facility] [address] [facility] [id number], [place] [address]- 5873 Apr, [facility] [place] [facility] [address] [facility] [id number], [place] [address]- 6566 Apr, [facility] [place] [address] [facility] [id number], [place] [id number] Apr, [facility] [place] [facility] [address] [facility] [id number], [place] [address]- 5581 Apr, [facility] [place] [address] [id number], [place] 398201196 Apr, [facility] [place] [facility] [address] [facility] [id number], [place] [address]- 1472 Apr, [facility] [place] [address] [facility] [id number], [place] 179053442 Apr, [facility] [place] [facility] [address] [facility] [id number], [place] [address]- 3707 Apr, [facility] [place] [facility] [address] [facility] [id number], [place] [address]- 6002 Apr, [facility] [place] [facility] [address] [facility] [id number], [place] [address]- 7320 Apr, [facility] [place] [address] [facility] [id number], [place] 739432654 Apr, [facility] [place] [facility] [address] [facility] [id number], [place] [address] 2546 27 Mar, 2013 [facility] [place] [facility] [address] [facility] [id number], [place] [address]- 2546 19 Mar, 2013 [facility] [place] [address] [facility] [id number], [place] [id number] Mar, [facility] [place] [address] [id number] [place] [id number] Mar, [facility] [place] [address] [id number] [place] [id number] Mar, [facility] [place] [address] [id number] [place] [id number] Feb, [facility] [place] [address] [id number] [place] [id number] Feb, [facility] [place] [address] [id number] [place] 285424420 Feb, [facility] [address] [facility] [id number], [place] [address]- 9634 Feb, [facility] [place] [address] [id number] [place] 675603933 Feb, [facility] [place] [address] [id number] [place] 028538558 Feb, [facility] [place] [address] [id number] [place] 711401820 Feb, [facility] [place] [address] [id number] [place] 137424855 Feb, [facility] [place] [address] [id number] [place] [id number] Feb, [facility] [place] [address] [id number] [place] 223225087 Jan, [facility] [place] [address] [id number] [place] 364914108 Jan, [facility] [place] [address] [id number] [place] 481355451 Jan, [facility] [place] [address] [id number] [place] 981425776 Jan, [facility] [place] [address] [id number] [place] 098326844 Jan, [facility] [address] [facility] [id number], [place] [address]- 8456 Jan, [facility] [place] [address] [id number] [place] 586351802 Jan, [facility] [place] [address] [id number] [place] 880218878 Jan, [facility] [place] [address] [id number] [place] 527932598 Dec, [facility] [place] [address] [id number] [place] [id number] November, [facility] [place] [address] [id number] [place] [id number] November, [facility] [place] [address] [id number] [place] 944995727 November, [facility] [place] [address] [id number] [place] 768071228 November, [facility] [place] [address] [id number] [place] 080231513 November, [facility] [place] [address] [id number] [place] [id number] November, [facility] [place] [address] [id number] [place] 588791617 Jul, [facility] [place] [address] [id number] [place] 747008057 Jul, [facility] [place] [address] [id number] [place] 081711944 Jul, [facility] [place] [address] [id number] [place] 631007017 Jun, [facility] [address] [facility] [id number], [place] [address]- 4270 Jun, [facility] [place] [address] [id number] [place] [id number] May, [facility] [place] [facility] [address] [facility] [id number][place] [address]- 4294 May, [facility] [place] [address] [id number] [place] [id number] May, [facility] [place] [facility] [address] [facility] [id number] [address]- 2031 May, [facility] [place] [address] [id number] [place] [id number] May, [facility] [place] [facility] [address] [facility] [id number], [place] [address]- 1946 May, [facility] [place] [address] [id number], [place] 779397678 Apr, [facility] [place] [facility] [address] [facility] [id number], [place] [address]- 7016 Apr, [facility] [place] [facility] [address] [facility] [id number][place] [address]- 8643 Apr, [facility] [place] [address] [id number], [place] 506690109 Apr, [facility] [place] [address] [id number], [place] [id number] Apr, [facility] [place] [facility] [address] [facility] [id number], [place] [address]- 1185 Apr, [facility] [address]00565100[place], [place] [address]- 7309 Apr, [facility] [place] [address] [id number], [place] [id number] Apr, [facility] [address]00565100[place], [place] [address]- 0606 Apr, [facility] [place] [address] [id number], [place] 556471782 Apr, [facility] [place] [address] [id number][place] [id number] Apr, [facility] [place] [address] [id number][place] [id number] Mar, [facility] [place] [address] [id number][place] [id number] Feb, [facility] [place] [address] [id number][place] [id number] Jan, [facility] [place] [address] [id number][place] [id number] Dec, [facility] [place] [address] [id number][place] [id number] Dec, [facility] [place] [address] [id number] [place] [id number] Dec, [facility] [place] [address] [id number] [place] [id number] Dec, [facility] [place] [address] [id number] [place] [id number] Dec, [facility] [place] [address] [id number] [place] [id number] November, [facility] [place] [address] [id number] [place] [id number] November, [facility] [place] [address] [id number] [place] [id number] November, [facility] [address] [facility] [id number], [place] [address] November, [facility] [place] [address] [id number] [place] [id number] November, [facility] [place] [address] [id number] [place] [id number] November, [facility] [place] [address] [id number] [place] [id number] Oct, [facility] [place] [address] [id number] [place] [id number] Oct, [facility] [place] [address] [id number] [place] [id number] Oct, [facility] [place] [address] [id number] [place] [id number] Oct, [facility] [place] [address] [id number] [place] [id number] Oct, [facility] [place] [address] [id number] [place] [id number] Oct, [facility] [place] [address] [id number] [place] [id number] Sep, [facility] [place] [address] [id number] [place] [id number] Aug, [facility] [place] [address] [id number] [place] [id number] Aug, [facility] [place] [address] [id number][place] [id number] 10 Jul, 2011 [facility] [place] [facility] [address] [id number] [place] [address] Jun, [facility] [place] [facility] [address] [id number] [place] [address] Jun, [facility] [place] [facility] [address] [facility] [id number] [place] [address] Jun, [facility] [place] [facility] [address] [id number] [place] [address] Jun, [facility] [place] [facility] [address] [facility] [id number] [place] [address] May, [facility] [place] [facility] [address] [facility] [id number], [place] [address] May, [facility] [place] [facility] [address] [facility] [id number] [place] [address] Apr, [facility] [place] [facility] [address] [facility] [id number], [place] [address] Apr, [facility] [place] [facility] [address] [facility] [id number], [place] [address] Apr, [facility] [place] [facility] [address] [facility] [id number], [place] [address] Feb, [facility] [place] [facility] [address] [facility] [id number], [place] [address] Aug, [facility] [place] [facility] [address] [facility] [id number], [place] [address] Jul, [facility] [place] [facility] [address] [facility] [id number], [place] [address] Jun, [facility] [place] [facility] [address] [facility] [id number], [place] [address] May, [facility] [place] [facility] [address] [facility] [id number][place] [address] May, [facility] [place] [facility] [id number], [place] [address] May, [facility] [id number] [address] May, [facility] [address] [id number], [place] [address] May, [facility] [id number], [place] [address] Aug, [facility] [address] [id number], [place] [address] Jun, [facility] [id number] [place] [address] Jun, [facility] [id number] [address] Jun, [facility] [id number] [place] [address] May, [facility] [id number], [place] [address] Apr, [facility] [id number], [place] [address] Apr, [facility] [id number], [place] [address] Apr, [facility] [id number], [place] [address] Jan, [facility] [address] [id number], [place] [address] Oct, [facility] [address], [place] [address] May, [facility] [address], [place] [address] May, IMMUNIZATIONS No Known Immunizations SOCIAL HISTORY [...] > 30 years Medical History COPD- Dr. Timmnos Medical History Hyperlipidemia Medical History post chloecystectomy- [...] Dialysis Ruthy Reveles 2012 -Dr. Simon now [facility] Medical History Colonoscopy (polyps 2 ) [...]
--- OUTSIDE RECORDS SUMMARY | 2017-10-06 07:05 | XMS REPORT ---
Author Author CHELSY VILLAFANA Organization [employer] Address Unknown Phone Unavailable Care Team Providers Care Hydraulic Barker Operator Name Role Phone CHELSY VILLAFANA CP Unavailable [...] Oxygen desaturation during sleep G47.34 Active Problem detention 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 Active Problem [...] Start Date End Date Status Dosage Levemir [facility] [id number] 100 UNIT/ML Subcutaneous 2 times a day 95 Units BD Insulin Syringe [facility] [id number] 31G X 5/16 subcutaneously with insulin January 03, 2016 as directed Results No Known Results Summary Purpose eClinicalWorks Submission
--- OUTSIDE RECORDS SUMMARY | 2017-10-06 07:06 | XMS REPORT ---
Author Author CHELSY VILLAFANA [facility] Address [address] [place] [address] Care Team Providers Care Fitness Technician Name Role Phone CHELSY VILLAFANA Unavailable PROBLEMS Type Condition ICD9-CM Code [id number] Code Onset Dates Condition Status SNOMED Code Problem Sleep apnea in adult G47.33 Active 25003592 Problem Primary insomnia F51.01 Active 9358629 Problem Chronic pain syndrome G89.4 Active 932325405 Problem buttermaker continuous churn (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 Active 226145240 Problem Anemia in other chronic diseases classified elsewhere D63.8 Active 364233091 Problem nursing home 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 Active 253687307 Problem Right carpal tunnel syndrome G56.01 Active 211528831696098 Problem 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 Active 423425102663294 Problem Chronic kidney disease, stage 4 (severe) N18.4 Active 558968771 Problem Type 2 diabetes mellitus with hyperglycemia E11.65 Active 671893330836321 Problem Psoriasis of scalp L40.9 Active 745637535 Problem Paresthesia of right upper extremity R20.2 Active 27932915 Problem Iron deficiency anemia due to chronic blood loss D50.0 Active 02456282 Problem Gastroesophageal reflux disease without esophagitis K21.9 Active 549413772 Problem Type 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 Active 336448143 Problem Diabetic 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 Active 45256601 Problem nursing home 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 Active 920424310 Problem Essential hypertension I10 Active 34823444 Problem Chronic obstructive pulmonary disease, unspecified COPD type J44.9 Active 02453258 Problem Oxygen desaturation during sleep G47.34 Active 041569303 Problem History of DVT (deep vein thrombosis) Z86.718 Active 954022275 Problem Depression, unspecified depression type F32.9 Active 99750996 ALLERGIES No Information SOCIAL HISTORY Never Assessed PLAN OF CARE VITAL SIGNS MEDICATIONS Medication Instructions Dosage Frequency Start Date End Date Duration Status Victoza 18 MG/3ML INJECT 1.8 MG SUBCUTANEOUSLY ONCE DAILY... Active RESULTS No Results PROCEDURES No Known [...] Dialysis Ruthy Reveles 2012 -Dr. Simon now [facility] Medical History Colonoscopy (polyps 2 ) [...]
--- OUTSIDE RECORDS SUMMARY | 2017-10-06 07:06 | XMS REPORT ---
Author Author CHELSY VILLAFANA [facility] Address [address] [place] [address] Care Team Providers Care Grooving Machine Operator Name Role Phone CHELSY VILLAFANA Unavailable PROBLEMS Type Condition ICD9-CM Code DFW09-[id number] Code Onset Dates Condition Status SNOMED Code Problem Sleep apnea in adult G47.33 Active 20944845 Problem Primary insomnia F51.01 Active 7715705 Problem Chronic pain syndrome G89.4 Active 910314335 Problem custodial (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 Active 982204977 Problem Anemia in other chronic diseases classified elsewhere D63.8 Active 659377228 Problem custodial 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 Active 184704816 Problem Right carpal tunnel syndrome G56.01 Active 914538915679416 Problem 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 Active 774743605980927 Problem Chronic kidney disease, stage 4 (severe) N18.4 Active 093046558 Problem Type 2 diabetes mellitus with hyperglycemia E11.65 Active 603313915112540 Problem Psoriasis of scalp L40.9 Active 328099571 Problem Paresthesia of right upper extremity R20.2 Active 32917018 Problem Iron deficiency anemia due to chronic blood loss D50.0 Active 30160677 Problem Gastroesophageal reflux disease without esophagitis K21.9 Active 327364152 Problem Type 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 Active 454662996 Problem Diabetic 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 Active 37009107 Problem custodial 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 Active 970486405 Problem Essential hypertension I10 Active 24724633 Problem Chronic obstructive pulmonary disease, unspecified COPD type J44.9 Active 81377350 Problem Oxygen desaturation during sleep G47.34 Active 232173172 Problem History of DVT (deep vein thrombosis) Z86.718 Active 192958755 Problem Depression, unspecified depression type F32.9 Active 99079385 ALLERGIES Unknown Allergies SOCIAL HISTORY No smoking Hx information available PLAN OF CARE VITAL SIGNS MEDICATIONS Unknown Medications RESULTS No Results PROCEDURES No Known procedures IMMUNIZATIONS No Known Immunizations
--- OUTSIDE RECORDS SUMMARY | 2017-10-06 07:06 | XMS REPORT ---
Author Author KATLYN SAXENA Organization [employer] Address Unknown Phone Unavailable Care Team Providers Care Group Work Program Director Name Role Phone KATLYN SAXENA Unavailable Allergies No Known Allergies Problems Problem Type Condition Code Onset Dates Condition Status Assessment Hyperglycemia R73.9 Active Problem Other and unspecified hyperlipidemia 272.4 [...] Instructions Start Date End Date Status Dosage Humalog [facility] [address]-85 100 UNIT/ML Subcutaneous 3 times a day Apr 17, 2015 8 units Results No Known Results Summary Purpose eClinicalWorks Submission
--- OUTSIDE RECORDS SUMMARY | 2017-10-06 07:06 | XMS REPORT ---
Author Author CHELSY VILLAFANA [facility] Address [address] [place] [address] Care Team Providers Care Crawler Tractor Operator Name Role Phone CHELSY VILLAFANA Unavailable PROBLEMS Type Condition ICD9-CM Code HDE90-[id number] Code Onset Dates Condition Status SNOMED Code Problem Gastroesophageal reflux disease without esophagitis K21.9 Active 930898715 Problem Oxygen desaturation during sleep G47.34 Active 244920102 Problem Sleep apnea in adult G47.33 Active 65467362 Problem Diabetic 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 Active 51980819 Problem Iron deficiency anemia due to chronic blood loss D50.0 Active 73801217 Problem History of DVT (deep vein thrombosis) Z86.718 Active 893968731 Problem Chronic pain syndrome G89.4 Active 062010736 Problem Chronic obstructive pulmonary disease, unspecified COPD type J44.9 Active 97368558 Problem residential 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 Active 892670144 Problem Type 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 Active 333922798 Problem Depression, unspecified depression type F32.9 Active 50705296 Problem Anemia in other chronic diseases classified elsewhere D63.8 Active 500173487 Problem Primary insomnia F51.01 Active 0069650 Problem Diabetes type 2, uncontrolled E11.65 Active 672074184 Problem Essential hypertension I10 Active 27119705 ALLERGIES Unknown Allergies SOCIAL HISTORY No smoking Hx information available PLAN OF CARE VITAL SIGNS MEDICATIONS Unknown Medications RESULTS No Results PROCEDURES No Known procedures IMMUNIZATIONS No Known Immunizations
--- OUTSIDE RECORDS SUMMARY | 2017-10-06 07:06 | XMS REPORT ---
Author Author CHELSY VILLAFANA Organization [employer] Address Unknown Phone Unavailable Care Team Providers Care Transport Specialist Name Role Phone CHELSY VILLAFANA CP Unavailable [...] Active Problem Primary insomnia F51.01 Active Medications No Known Medications Results No Known Results Summary Purpose eClinicalWorks Submission
--- OUTSIDE RECORDS SUMMARY | 2017-10-06 07:06 | XMS REPORT ---
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 Active 688391276 Problem Anemia in other chronic diseases classified elsewhere D63.8 Active 476809775 Problem jail 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 Active 256374351 Problem Right carpal tunnel syndrome G56.01 Active 817283132199377 Problem 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 Active 244504218993432 Problem Chronic kidney disease, stage 4 (severe) N18.4 Active 836587908 Problem Type 2 diabetes mellitus with hyperglycemia E11.65 Active 875569801659889 Problem Psoriasis of scalp L40.9 Active 751855942 Problem Paresthesia of right upper extremity R20.2 Active 44098671 Problem Iron deficiency anemia due to chronic blood loss D50.0 Active 72944613 Problem Gastroesophageal reflux disease without esophagitis K21.9 Active 668476695 Problem Type 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 Active 944320814 Problem Diabetic 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 Active 04339564 Problem jail 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 Active 505030151 Problem Essential hypertension I10 Active 94072630 Problem Chronic obstructive pulmonary disease, unspecified COPD type J44.9 Active 32093405 Problem Oxygen desaturation during sleep G47.34 Active 336455504 Problem History of DVT (deep vein thrombosis) Z86.718 Active 695160399 Problem Depression, unspecified depression type F32.9 Active 06198366 ALLERGIES No Information SOCIAL HISTORY Never Assessed PLAN OF CARE VITAL SIGNS MEDICATIONS No Known Medications RESULTS No Results PROCEDURES No Known [...] Dialysis Ruthy Reveles 2012 -Dr. Simon now [facility] Medical History Colonoscopy (polyps 2 ) [...]
--- OUTSIDE RECORDS SUMMARY | 2017-10-06 07:06 | XMS REPORT ---
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 Active 703403528 Problem Anemia in other chronic diseases classified elsewhere D63.8 Active 519192130 Problem group home 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 Active 150535884 Problem Right carpal tunnel syndrome G56.01 Active 999219082630040 Problem 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 Active 109942024075332 Problem Chronic kidney disease, stage 4 (severe) N18.4 Active 247711861 Problem Type 2 diabetes mellitus with hyperglycemia E11.65 Active 346055120406638 Problem Psoriasis of scalp L40.9 Active 114246553 Problem Paresthesia of right upper extremity R20.2 Active 13055878 Problem Iron deficiency anemia due to chronic blood loss D50.0 Active 44038573 Problem Gastroesophageal reflux disease without esophagitis K21.9 Active 273825388 Problem Type 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 Active 404811539 Problem Diabetic 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 Active 90035067 Problem group home 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 Active 539002969 Problem Essential hypertension I10 Active 82143638 Problem Chronic obstructive pulmonary disease, unspecified COPD type J44.9 Active 20353766 Problem Oxygen desaturation during sleep G47.34 Active 083859541 Problem History of DVT (deep vein thrombosis) Z86.718 Active 118782621 Problem Depression, unspecified depression type F32.9 Active 24764045 ALLERGIES No Information SOCIAL HISTORY Never Assessed PLAN OF CARE VITAL SIGNS MEDICATIONS Unknown [...] Dialysis Ruthy Reveles 2012 -Dr. Simon now [facility] Medical History Colonoscopy (polyps 2 ) [...]
--- OUTSIDE RECORDS SUMMARY | 2017-10-06 07:06 | XMS REPORT ---
Author Author CHELSY VILLAFANA Organization [employer] Address Unknown Phone Unavailable Care Team Providers Care Social Work Instructor Name Role Phone CHELSY VILLAFANA CP Unavailable [...] Instructions Start Date End Date Status Dosage Insulin Syringe-Needle U-100 NDC 0 31G X 1/2 subcutaneously 5 times per day as directed Results No Known Results Summary Purpose eClinicalWorks Submission
--- OUTSIDE RECORDS SUMMARY | 2017-10-06 07:06 | XMS REPORT ---
Author Author CHELSY VILLAFANA [facility] Address [address] [place] [address] Care Team Providers Care Marketing Designer Name Role Phone CHELSY VILLAFANA Unavailable PROBLEMS Type Condition ICD9-CM Code MNS09-AR Code Onset Dates Condition Status SNOMED Code Problem Sleep apnea in adult G47.33 Active 38755337 Problem Primary insomnia F51.01 Active 2714130 Problem Chronic pain syndrome G89.4 Active 210488313 Problem long-term (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 Active 589941816 Problem Anemia in other chronic diseases classified elsewhere D63.8 Active 866009545 Problem long-term 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 Active 733922852 Problem Right carpal tunnel syndrome G56.01 Active 085820736194523 Problem 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 Active 627247346571031 Problem Chronic kidney disease, stage 4 (severe) N18.4 Active 899708051 Problem Type 2 diabetes mellitus with hyperglycemia E11.65 Active 960426125530578 Problem Psoriasis of scalp L40.9 Active 079740191 Problem Paresthesia of right upper extremity R20.2 Active 91497503 Problem Iron deficiency anemia due to chronic blood loss D50.0 Active 03670440 Problem Gastroesophageal reflux disease without esophagitis K21.9 Active 891549661 Problem Type 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 Active 249013791 Problem Diabetic 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 Active 34680114 Problem long-term 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 Active 281428799 Problem Essential hypertension I10 Active 78370602 Problem Chronic obstructive pulmonary disease, unspecified COPD type J44.9 Active 31585036 Problem Oxygen desaturation during sleep G47.34 Active 858523130 Problem History of DVT (deep vein thrombosis) Z86.718 Active 526294603 Problem Depression, unspecified depression type F32.9 Active 89649754 ALLERGIES Unknown Allergies SOCIAL HISTORY No smoking Hx information available PLAN OF CARE VITAL SIGNS MEDICATIONS Medication Instructions Dosage Frequency Start Date End Date Duration Status Tresiba FlexTouch 200 UNIT/ML ICD10- E11.29 daily 105 units 24h Jul, Active RESULTS No Results PROCEDURES No Known procedures IMMUNIZATIONS No Known Immunizations
--- OUTSIDE RECORDS SUMMARY | 2017-10-06 07:06 | XMS REPORT ---
Author Author KATLYN SAXENA [facility] eClinical[employer] Address Unknown Phone Unavailable Care Team Providers Care Dispensing Optician Name Role Phone KATLYN SAXENA Unavailable Allergies [...] Instructions Start Date End Date Status Dosage Jack [facility] [address]-28 50 MG Orally Once a day Apr 15, 2015 1 tablet Results No Known Results Summary Purpose eClinicalWorks Submission
--- OUTSIDE RECORDS SUMMARY | 2017-10-06 07:06 | XMS REPORT ---
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 Active 892991868 Problem Anemia in other chronic diseases classified elsewhere D63.8 Active 369694638 Problem [facility] 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 Active 812498803 Problem Right carpal tunnel syndrome G56.01 Active 491408969653901 Problem 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 Active 127868365281422 Problem Chronic kidney disease, stage 4 (severe) N18.4 Active 548697353 Problem Type 2 diabetes mellitus with hyperglycemia E11.65 Active 789488075698793 Problem Psoriasis of scalp L40.9 Active 182558349 Problem Paresthesia of right upper extremity R20.2 Active 80199809 Problem Iron deficiency anemia due to chronic blood loss D50.0 Active 48337350 Problem Gastroesophageal reflux disease without esophagitis K21.9 Active 612746430 Problem Type 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 Active 835065009 Problem Diabetic 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 Active 69020474 Problem [facility] 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 Active 179321202 Problem Essential hypertension I10 Active 72132079 Problem Chronic obstructive pulmonary disease, unspecified COPD type J44.9 Active 80279101 Problem Oxygen desaturation during sleep G47.34 Active 444628022 Problem History of DVT (deep vein thrombosis) Z86.718 Active 522689251 Problem Depression, unspecified depression type F32.9 Active 18623627 ALLERGIES No Information SOCIAL HISTORY Never Assessed PLAN OF CARE VITAL SIGNS MEDICATIONS Medication Instructions Dosage Frequency Start Date End Date Duration Status NovoLog Flexpen 100 UNIT/ML ICD10- E11.29 3 times a day with meals 50 19 Jul, 2016 Active RESULTS No Results PROCEDURES No Known [...] Dialysis Ruthy Reveles 2012 -Dr. Simon now [facility] Medical History Colonoscopy (polyps 2 ) [...]
--- OUTSIDE RECORDS SUMMARY | 2017-10-06 07:06 | XMS REPORT ---
Author Author CHELSY VILLAFANA [facility] Address [address] [place] [address] Care Team Providers Care Engineering Writer Name Role Phone CHELSY VILLAFANA Unavailable PROBLEMS Type Condition ICD9-CM Code ESO92-LU Code Onset Dates Condition Status SNOMED Code Problem Chronic obstructive pulmonary disease, unspecified COPD type J44.9 Active 11835925 Problem Diabetic 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 Active 42587309 Problem Iron deficiency anemia due to chronic blood loss D50.0 Active 55762266 Problem [facility] 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 Active 441156025 Problem Anemia in other chronic diseases classified elsewhere D63.8 Active 494185157 Problem [facility] (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 Active 522895744 Problem Right carpal tunnel syndrome G56.01 Active 799835792045698 Problem 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 Active 437780674642876 Problem Type 2 diabetes mellitus with hyperglycemia E11.65 Active 422358268582963 Problem Chronic kidney disease, stage 4 (severe) N18.4 Active 528488891 Problem Paresthesia of right upper extremity R20.2 Active 91308230 Problem Psoriasis of scalp L40.9 Active 766135458 Problem Primary insomnia F51.01 Active 0869110 Problem Essential hypertension I10 Active 91618346 Problem Type 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 Active 786570331 Problem Depression, unspecified depression type F32.9 Active 38972424 Problem Oxygen desaturation during sleep G47.34 Active 381087470 Problem Chronic pain syndrome G89.4 Active 108101541 Problem Gastroesophageal reflux disease without esophagitis K21.9 Active 418217701 Problem History of DVT (deep vein thrombosis) Z86.718 Active 207216454 Problem Sleep apnea in adult G47.33 Active 60626970 Problem [facility] 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 Active 277245276 ALLERGIES Unknown Allergies SOCIAL HISTORY No smoking Hx information available PLAN OF CARE VITAL SIGNS MEDICATIONS Unknown Medications RESULTS No Results PROCEDURES No Known procedures IMMUNIZATIONS No Known Immunizations
[2017-10-06] MEDS ORDERED: HEParin (CATH LAB) 2,000 ML IV ONE (07:07)
[2017-10-06] MEDS ORDERED: NS IV 1000 ML 1,000 ML ONE (07:07)
--- OUTSIDE RECORDS SUMMARY | 2017-10-06 07:07 | XMS REPORT ---
Author Author CHELSY VILLAFANA [facility] eClinicalWorks Address Unknown Phone Unavailable Care Team Providers Care Manager Of Compliance Name Role Phone CHELSY VILLAFANA CP Unavailable Allergies, Adverse Reactions, Alerts Substance Reaction Event Type Sulfamethoxazole-Trimethoprim hives Drug Allergy Penicillin V Potassium anaphylaxis Drug Allergy plastic tape rash Non Drug Allergy Problems Problem Type Condition Code Onset Dates Condition Status Assessment Renal failure, chronic, stage 4 (severe) N18.4 Active Assessment Skin lesion L98.9 Active Assessment Depression, unspecified depression type F32.9 [...] Oxygen desaturation during sleep G47.34 Active Problem intermediate 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 Active Problem History of DVT (deep vein thrombosis) Z86.718 Active Assessment Iron deficiency anemia due to chronic blood loss D50.0 Active Assessment Diabetic 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 Active Assessment 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 2 in AM, 1 in PM Apr 12, 2012 1 capsule Trazodone HCl [facility] 26400370397 150 MG Orally Once a day at bedtime as needed 1 tablet Xarelto [facility] [address]-69 20 MG Orally Once a day 1 tablet with food Verapamil HCl CR [facility] [address]-33 240 MG Orally Once a day in the morning with food 1 tablet Tramadol HCl [facility] [address]-54 50 mg Orally every 6 hrs, may take up to 3 times daily 1 tablet as needed for pain Levemir [facility] 03938257910 100 UNIT/ML Subcutaneous 2 times a day 95 Units BD Insulin Syringe [facility] 8290-330167 31G X 5/16 subcutaneously with insulin January 03, 2016 as directed Cozaar [facility] 41619728414 50 MG Orally Once a day 1 tablet Albuterol Sulfate [facility] [address]-70 90 mcg/actuation 2 puffs by Inhalation route every 4-6 hours as needed PRN cough or wheezing Biotin [facility] 90652-60066 1000 MCG Orally Once a day 1 tablet Glucometer [facility] 0 ... DX: 250.40 as directed Humalog [facility] [address]-00 100 UNIT/ML Subcutaneous 3 times a day 15 units Ferrous Sulfate [facility] [address]-61 325 (65 Fe) MG Orally Twice a day December 1 tablet Seroquel [facility] [address]-56 50 mg Orally Once a day at bedtime 1 tablet Torsemide [facility] 76697730280 100 MG Orally Once a day 1/2 tablet Multivitamin [facility] 81757-55989 Orally Once a day December 10, 2011 1 tablet Advair Diskus [facility] [address]-03 100 mcg-50 mcg 1 puffs by Inhalation route 2 times per day (rinse mouth and throat after use) Insulin Syringe-Needle U-100 ND 0 29G X 1/2" 0.25 ML subcutaneously 5 times per day January 08, 2016 as directed Savella [facility] [address]-57 100 MG Orally Twice a day 1 tablet Gabapentin [facility] 51239339232 600 MG Orally Three times a day take 1 tablet Protonix [facility] [address]-74 40 MG Orally Once a day 1 tablet Lipitor [facility] [address]-63 40 MG Orally Once a day 1 tablet iFerex 150 [facility] [address]-11 150 MG Orally 3 times a day 1 capsule Melatonin [facility] 77114-[address]804 10 mg 2 Tablet by Oral route 1 time per dayat bedtime BD Pen NDC 0 BD PEN NEEDLE MARSHA subcut 3 times a day as directed Test strips NDC 0 ... 3 times a day, DX: 250.40 True Test Oxygen NDC 0 2.5 L at hs and prn not defined Victoza [facility] [address]-70 0.6 mg/0.1 mL (18 mg/3 mL) Subcutaneous Once a day 1.8 mg Procedures Procedure Coding System Code Date Office Visit, Est Pt., Level 5 CPT-4 78354 January 08, 2016 Vital Signs Date/Time: January 08, 2016 Cardiac Monitoring Heart Rate 92 bpm Weight 331.0 lbs Height 64 in Blood Pressure Diastolic 72 mmHg Blood Pressure Systolic 141 mmHg Results No Known Results Summary Purpose eClinicalWorks Submission
--- OUTSIDE RECORDS SUMMARY | 2017-10-06 07:07 | XMS REPORT ---
Author Author CHELSY VILLAFANA Organization eClinical[employer] Address Unknown Phone Unavailable Care Team Providers Care Supervisor Salvage Name Role Phone CHELSY VILLAFANA CP Unavailable [...] Oxygen desaturation during sleep G47.34 Active Problem group home 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 [...]
--- OUTSIDE RECORDS SUMMARY | 2017-10-06 07:07 | XMS REPORT ---
Author Author CHELSY VILLAFANA [facility] Address [address] [place] [address] Care Team Providers Care Gauge Operator Name Role Phone CHELSY VILLAFANA Unavailable PROBLEMS Type Condition ICD9-CM Code [id number] Code Onset Dates Condition Status SNOMED Code Problem Sleep apnea in adult G47.33 Active 77216287 Problem Primary insomnia F51.01 Active 5982087 Problem Chronic pain syndrome G89.4 Active 233273888 Problem manager long term care (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 Active 691778405 Problem Anemia in other chronic diseases classified elsewhere D63.8 Active 341703336 Problem skilled nursing 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 Active 020300178 Problem Right carpal tunnel syndrome G56.01 Active 828805941889554 Problem 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 Active 737369288464771 Problem Chronic kidney disease, stage 4 (severe) N18.4 Active 920444627 Problem Type 2 diabetes mellitus with hyperglycemia E11.65 Active 385508121844146 Problem Psoriasis of scalp L40.9 Active 533732130 Problem Paresthesia of right upper extremity R20.2 Active 86164186 Problem Iron deficiency anemia due to chronic blood loss D50.0 Active 57335863 Problem Gastroesophageal reflux disease without esophagitis K21.9 Active 850986642 Problem Type 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 Active 006173526 Problem Diabetic 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 Active 61436721 Problem skilled nursing 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 Active 385045348 Problem Essential hypertension I10 Active 45779360 Problem Chronic obstructive pulmonary disease, unspecified COPD type J44.9 Active 20166294 Problem Oxygen desaturation during sleep G47.34 Active 919204021 Problem History of DVT (deep vein thrombosis) Z86.718 Active 093858071 Problem Depression, unspecified depression type F32.9 Active 92248955 ALLERGIES Substance Reaction Event Type Date Status Sulfamethoxazole-Trimethoprim hives Drug Allergy Sep, Active Penicillin V Potassium anaphylaxis Drug Allergy Sep, Active plastic tape rash Non Drug Allergy Sep, Active SOCIAL HISTORY Never Assessed PLAN OF CARE Activity Details Follow Up 3 Months Reason:DM VITAL SIGNS Height 64 in 2016-09-10 Weight 328.8 lbs 2016-09-10 Temperature 98.6 degrees Fahrenheit 2016-09-10 Heart Rate 82 bpm 2016-09-10 Respiratory Rate 22 2016-09-10 BMI 56.43 kg/m2 2016-09-10 Blood pressure systolic 129 mmHg 2016-09-10 Blood pressure diastolic 58 mmHg 2016-09-10 MEDICATIONS Medication Instructions Dosage Frequency Start Date End Date Duration Status Test strips ... True Test Active Gabapentin 600 MG Orally Three times a day take 1 tablet 8h Active Tresiba FlexTouch 200 UNIT/ML ICD10- E11.29 daily 105 units 24h Jul, Active Advair Diskus 100 mcg-50 mcg inhalation bid, rinse mouth afterwards 1 puffs Active Torsemide 100 MG Orally Once a day 1/2 tablet 24h 30 Active BD Pen BD PEN NEEDLE LOVELY subcut 3 times a day as directed 8h Active MiraLax 17 gm/dose Orally PRN 17 grams mixed in 8 oz of water or juice Active Melatonin 10 mg 2 Tablet by Oral route 1 time per dayat bedtime Active Insulin Syringe-Needle U-100 29G X 1/2 subcutaneously 5 times per day as directed Active Cozaar 50 MG Orally Once a day 1 tablet 24h Active Glucometer ... as directed Active Lipitor 40 mg Orally Once a day 1 tablet 24h Active Fish Oil Concentrate 1000 MG Orally Twice a day. 2 in AM, 1 in PM 1 capsule Apr, Active Verapamil HCl CR 240 MG Orally Once a day in the morning with food- must keep appt for further refills 1 tablet Active Multivitamin Orally Once a day 1 tablet 24h Dec, Active Protonix 40 MG Orally Once a day 1 tablet 24h Active Seroquel 50 mg Orally Once a day at bedtime 1 tablet Active Trazodone HCl 150 MG Orally Once a day at bedtime as needed 1 tablet Active Clobetasol Propionate 0.05 % Externally every other day 1 application to scalp Sep, November, 30 days Active Oxygen 2 L/NC .... daily Active Albuterol Sulfate 90 mcg/actuation inhalation every 4-6 hours as needed 1-2 puffs Active Biotin 1000 MCG Orally Once a day 1 tablet 24h Active Carafate 1 GM Orally Twice a day 1 tablet on an empty stomach 12h Active Ferrous Sulfate 325 (65 Fe) MG TAKE ONE (1) TABLET BY MOUTH TWICE DAILY... Active Savella 100 mg Orally Twice a day 1 tablet 12h Active NovoLog Flexpen 100 UNIT/ML ICD10- E11.29 3 times a day with meals 50 19 Jul, 2016 Active Eliquis 5 mg Orally 2 times a day as directed 12h Aug, 30 days Active Victoza 18 MG/3ML INJECT 1.8 MG SUBCUTANEOUSLY ONCE DAILY... Active Triamcinolone Acetonide 0.1 % Externally Twice a day 1 application to affected area 12h Mar, Active Tramadol HCl 50 mg Orally every 6 hrs, may take up to 3 times daily 1 tablet as needed for pain Active Tretinoin 0.025 % 1 Application by Topical route 1 time per day May Active BD Pen Needle Lovely U/F 32G X 4 MM USE DIRECTED THREE (3) TIMES DAILY. Active BD Insulin Syringe 31G X 5/16 subcutaneously with insulin as directed Jan, Active RESULTS Name Result Date Reference Range A1C (IN HOUSE) 2016-09-10 A1C IN HOUSE 6.8 4.3 - 5.6 % Previous A1c 9.2 Lot [id number] Exp date 07/2018 CBC 2016-09-10 WBC 9.5 3.4-10.8 RBC 4.15 3.77-5.28 Hemoglobin 11.9 11.1-15.9 Hematocrit 37.1 34.0-46.6 MCV 89 79-97 MCH 28.7 26.6-33.0 MCHC 32.1 31.5-35.7 RDW 14.2 12.3-15.4 Platelets 251 150-379 Neutrophils 65 Lymphs 21 Monocytes 11 Eos 2 Basos 0 Immature Cells Neutrophils (Absolute) 6.2 1.4-7.0 Lymphs (Absolute) 2.0 0.7-3.1 Monocytes(Absolute) 1.0 0.1-0.9 Eos (Absolute) 0.2 0.0-0.4 Baso (Absolute) 0.0 0.0-0.2 Immature Granulocytes 1 Immature Grans (Abs) 0.1 0.0-0.1 NRBC Hematology Comments: CMP 2016-09-10 Glucose, Serum 115 65-99 BUN 36 8-27 Creatinine, Serum 1.84 0.57-1.00 eGFR If NonAfricn Am 29 >59 eGFR If Africn Am 33 >59 BUN/Creatinine Ratio 20 11-26 Sodium, Serum 143 134-144 Potassium, Serum 4.4 3.5-5.2 Chloride, Serum 95 96-106 Carbon Dioxide, Total 30 18-29 Calcium, Serum 9.6 8.7-10.3 Protein, Total, Serum 7.2 6.0-8.5 Albumin, Serum 3.9 3.6-4.8 Globulin, Total 3.3 1.5-4.5 A/G Ratio 1.2 1.1-2.5 Bilirubin, Total 0.3 0.0-1.2 Alkaline Phosphatase, S 180 39-117 AST (SGOT) 38 0-40 ALT (SGPT) 51 0-32 PROCEDURES Procedure Date Ordered Result Body Site GLYCATED HEMOGLOBIN TEST September 10, 2016 COMPLETE CBC W/AUTO DIFF WBC September 10, 2016 COMPREHEN METABOLIC PANEL September 10, 2016 IMMUNIZATIONS No Known Immunizations MEDICAL (GENERAL) HISTORY [...] Dialysis Ruthy Reveles 2012 -Dr. Simon now [facility] Medical History Colonoscopy (polyps 2 ) [...]
--- OUTSIDE RECORDS SUMMARY | 2017-10-06 07:07 | XMS REPORT ---
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 Active 61881161 Problem Iron deficiency anemia due to chronic blood loss D50.0 Active 53033287 Problem History of DVT (deep vein thrombosis) Z86.718 Active 547932562 Problem Chronic pain syndrome G89.4 Active 443041950 Problem Chronic obstructive pulmonary disease, unspecified COPD type J44.9 Active 53855640 Problem custodial 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 Active 798864352 Problem Type 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 Active 949555412 Problem Depression, unspecified depression type F32.9 Active 83550611 Problem Anemia in other chronic diseases classified elsewhere D63.8 Active 484800562 Problem Primary insomnia F51.01 Active 5507586 Problem Diabetes type 2, uncontrolled E11.65 Active 008466342 Problem Essential hypertension I10 Active 64529112 ALLERGIES Unknown Allergies SOCIAL HISTORY No smoking Hx information available PLAN OF CARE VITAL SIGNS MEDICATIONS Medication Instructions Dosage Frequency Start Date End Date Duration Status Trazodone HCl 150 MG Orally Once a day at bedtime as needed 1 tablet Active RESULTS No Results PROCEDURES No Known procedures IMMUNIZATIONS No Known Immunizations
--- OUTSIDE RECORDS SUMMARY | 2017-10-06 07:07 | XMS REPORT ---
Author Author CHELSY VILLAFANA [facility] Address [address] [place] [address] Care Team Providers Care Wheel And Axle Inspector Name Role Phone CHELSY VILLAFANA Unavailable PROBLEMS Type Condition ICD9-CM Code GRB14-MU Code Onset Dates Condition Status SNOMED Code Problem Sleep apnea in adult G47.33 Active 55661492 Problem Primary insomnia F51.01 Active 2704252 Problem Chronic pain syndrome G89.4 Active 392119420 Problem terminal supervisor (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 Active 385015673 Problem Anemia in other chronic diseases classified elsewhere D63.8 Active 001221562 Problem [facility] 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 Active 941869153 Problem Right carpal tunnel syndrome G56.01 Active 876753334111951 Problem 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 Active 982262117008349 Problem Chronic kidney disease, stage 4 (severe) N18.4 Active 002606614 Problem Type 2 diabetes mellitus with hyperglycemia E11.65 Active 309306504037294 Problem Psoriasis of scalp L40.9 Active 569211126 Problem Paresthesia of right upper extremity R20.2 Active 18392041 Problem Iron deficiency anemia due to chronic blood loss D50.0 Active 12532840 Problem Gastroesophageal reflux disease without esophagitis K21.9 Active 548643060 Problem Type 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 Active 021989615 Problem Diabetic 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 Active 29075286 Problem [facility] 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 Active 321649649 Problem Essential hypertension I10 Active 60134451 Problem Chronic obstructive pulmonary disease, unspecified COPD type J44.9 Active 62372156 Problem Oxygen desaturation during sleep G47.34 Active 971331378 Problem History of DVT (deep vein thrombosis) Z86.718 Active 555039161 Problem Depression, unspecified depression type F32.9 Active 21906919 ALLERGIES No Information SOCIAL HISTORY Never Assessed PLAN OF CARE VITAL SIGNS MEDICATIONS Medication Instructions Dosage Frequency Start Date End Date Duration Status Ferrous Sulfate 325 (65 Fe) MG TAKE ONE (1) TABLET BY MOUTH TWICE DAILY... Active RESULTS No Results PROCEDURES No [...] Dialysis Ruthy Reveles 2012 -Dr. Simon now [facility] Medical History Colonoscopy (polyps 2 ) [...]
--- OUTSIDE RECORDS SUMMARY | 2017-10-06 07:07 | XMS REPORT ---
Author Author CHELSY VILLAFANA Organization eClinical[employer] Address Unknown Phone Unavailable Care Team Providers Care Cork Grinder Name Role Phone CHELSY VILLAFANA CP Unavailable [...] Oxygen desaturation during sleep G47.34 Active Problem correction 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 Active Problem [...]
--- OUTSIDE RECORDS SUMMARY | 2017-10-06 07:08 | XMS REPORT ---
Author Author KATLYN SAXENA Organization e[employer] Address Unknown Phone Unavailable Care Team Providers Care Dairy Equipment Installer Name Role Phone KATLYN SAXENA CP Unavailable Allergies No Known Allergies Problems Problem Type Condition ICD-9 Code Onset Dates Condition Status Assessment Occult blood in stools 792.1 Active Problem Other and unspecified hyperlipidemia [...]
--- OUTSIDE RECORDS SUMMARY | 2017-10-06 07:08 | XMS REPORT ---
Author Author CHELSY VILLAFANA [facility] Address [address] [place] [address] Care Team Providers Care Torch Shearer Name Role Phone CHELSY VILLAFANA Unavailable PROBLEMS Type Condition ICD9-CM Code [id number] Code Onset Dates Condition Status SNOMED Code Problem Sleep apnea in adult G47.33 Active 47627776 Problem Primary insomnia F51.01 Active 8872319 Problem Chronic pain syndrome G89.4 Active 632124135 Problem [facility] (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 Active 372639619 Problem Anemia in other chronic diseases classified elsewhere D63.8 Active 735948522 Problem [facility] 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 Active 046548397 Problem Right carpal tunnel syndrome G56.01 Active 061599385742530 Problem 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 Active 964473442208734 Problem Chronic kidney disease, stage 4 (severe) N18.4 Active 193459245 Problem Type 2 diabetes mellitus with hyperglycemia E11.65 Active 054743144594104 Problem Psoriasis of scalp L40.9 Active 050981157 Problem Paresthesia of right upper extremity R20.2 Active 79085551 Problem Iron deficiency anemia due to chronic blood loss D50.0 Active 96571260 Problem Gastroesophageal reflux disease without esophagitis K21.9 Active 589978138 Problem Type 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 Active 585578773 Problem Diabetic 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 Active 50154410 Problem [facility] 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 Active 061489332 Problem Essential hypertension I10 Active 57975896 Problem Chronic obstructive pulmonary disease, unspecified COPD type J44.9 Active 43433941 Problem Oxygen desaturation during sleep G47.34 Active 577281726 Problem History of DVT (deep vein thrombosis) Z86.718 Active 183849255 Problem Depression, unspecified depression type F32.9 Active 50991218 ALLERGIES Unknown Allergies SOCIAL HISTORY No smoking Hx information available PLAN OF CARE VITAL SIGNS MEDICATIONS Medication Instructions Dosage Frequency Start Date End Date Duration Status Xarelto 20 mg Orally Once a day-Must keep appt with Dr. Dorsey 1 tablet with food 14 days Active RESULTS No Results PROCEDURES No Known procedures IMMUNIZATIONS No Known Immunizations
--- OUTSIDE RECORDS SUMMARY | 2017-10-06 07:08 | XMS REPORT ---
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 Active 728096825 Problem 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 Active 483927103018255 Problem Chronic kidney disease, stage 4 (severe) N18.4 Active 214507290 Problem Type 2 diabetes mellitus with hyperglycemia E11.65 Active 416683955836452 Problem Psoriasis of scalp L40.9 Active 804709373 Problem Paresthesia of right upper extremity R20.2 Active 80394349 Problem Diabetic 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 Active 16612196 Problem Gastroesophageal reflux disease without esophagitis K21.9 Active 209148508 Problem Anemia in other chronic diseases classified elsewhere D63.8 Active 469414976 Problem Type 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 Active 851322485 Problem Depression, unspecified depression type F32.9 Active 27274977 Problem History of DVT (deep vein thrombosis) Z86.718 Active 119461576 Problem Chronic obstructive pulmonary disease, unspecified COPD type J44.9 Active 00326627 Problem impression printer 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 Active 367603974 Problem Oxygen desaturation during sleep G47.34 Active 851144444 Problem Essential hypertension I10 Active 86754136 ALLERGIES No Information ENCOUNTERS Encounter Location Date Diagnosis [facility] [id number] [place] [address] 11399- 7146 Oct, [place] [address], [place] [address] 8[address] Sep, Type 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 and Chronic obstructive pulmonary disease, unspecified COPD type J44.9 [place] [address], [place] [address] 69[address] 15 Aug, 2017 Type 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 [place] [id number] [place] [address] 64523- 3149 12 Aug, 2017 Gastroesophageal reflux disease without esophagitis K21.9 ; impression printer 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 ; Chronic pain syndrome G89.4 ; Essential hypertension I10 and Type 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 [place] [id number], [place] [address] 1464 08 Aug, 2017 Chronic pain syndrome G89.4 [place] [id number] [place] [address] 07507- 2083 Aug, Type 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 [place] [id number] [place] [address] 50989- 2940 30 Jul, 2017 Diabetic 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 [place] [address], [place] [address] 1498 Jul, Primary insomnia F51.01 [place] [id number] [place] [address] 09265- 0208 Jul, [place] [address] [place] [address] 31152- 8546 Jul, Type 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 and Chronic obstructive pulmonary disease, unspecified COPD type J44.9 [place] [address], [place] [address] 7026 Jul, Type 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 [place] [address], [place] [address] 6156 Jun, Type 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 [place] [id number] [place] [address] 27095- 5256 Jun, [place] [id number] [place] [address] 85637- 7538 Jun, Chronic obstructive pulmonary disease, unspecified COPD type J44.9 [place] [id number] [place] [address] 88639- 8808 May, Type 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 [place] [id number] [place] [address] 37151- 4595 May, impression printer 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 and Essential hypertension I10 [place] [id number] [place] [address] 59629- 5818 May, Anemia in other chronic diseases classified elsewhere D63.8 ; Chronic obstructive pulmonary disease, unspecified COPD type J44.9 ; Oxygen desaturation during sleep G47.34 ; Sleep apnea in adult G47.33 and Supplemental oxygen dependent Z99.81 [address] [place] [address] 90223- 9321 May, Type 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 ; Essential hypertension I10 ; Chronic pain syndrome G89.4 ; BMI 40.0-44.9, adult Z68.41 ; Gastroesophageal reflux disease without esophagitis K21.9 ; residential 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 ; impression printer 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 ; Diabetic 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 ; Edema of both legs R60.0 and Supplemental oxygen dependent Z99.81 [place] [address] [place] [address] 20791- 2116 May, [place] [id number] [place] [address] 52915- 7506 May, Essential hypertension I10 and Gastroesophageal reflux disease without esophagitis K21.9 [facility] [id number] [place] [address] 11971- 6832 May, [place] [address] 06972- 271 May, Type 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 and impression printer 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 [place] [address] 41158- 7634 Apr, Chronic pain syndrome G89.4 and Essential hypertension I10 [place] [id number] [place] [address] 62032- 1015 Apr, Type 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 [place] [address] 00816- 4340 Apr, Type 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 [place] [address] 49866- 5804 Apr, Essential hypertension I10 [place] [address] 80391- 4527 Apr, Gastroesophageal reflux disease without esophagitis K21.9 [place] [id number] [place] [address] 91992- 5485 Apr, Type 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 [place] [id number] [place] [address] 20979- 1212 Apr, Type 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 and residential 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 [place] [id number] [place] [address] 50215- 2206 Mar, Encounter for immunization Z23 and Preoperative examination Z01.818 [place] [id number] [place] [address] 76979- 0864 Mar, [place] [address] 59258- 7243 Mar, Type 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 [facility] [address] [place] [address] 06841- 2861 08 Mar, 2017 Type 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 [facility] [address] [place] [address] 12203- 8222 Mar, Gastroesophageal reflux disease without esophagitis K21.9 [facility] [id number] [place] [address] 39878- 7608 Mar, Essential hypertension I10 [facility] [id number] [place] [address] 52789- 4819 Feb, impression printer 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 [facility] [id number] [place] [address] 37516- 3695 Feb, Type 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 [facility] [id number] [place] [address] 01014- 5053 Feb, Type 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 [facility] [id number] [place] [address] 28475- 0615 Feb, Type 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 [facility] [address] [place] [address] 32318- 3108 Feb, Gastroesophageal reflux disease without esophagitis K21.9 [facility] [id number] [place] [address] 96678- 3072 Feb, Type 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 [facility] [id number] [place] [address] 12972- 5518 Feb, residential 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 [facility] [id number] [place] [address] 74462- 0763 Jan, Type 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 [facility] [address], [place] [address]- 1163 Jan, 2017 Type 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 [facility] [address], [place] [address]- 9567 Jan, Chronic pain syndrome G89.4 [facility] [address] [address]- 0791 Jan, [facility] [address], [place] [address]- 3382 Jan, [facility] [address] [facility] [id number] [address]- 3082 Jan, [facility] [address], [place] [address]- 9036 Jan, [facility] [address], [place] [address]- 5597 Jan, Primary insomnia F51.01 ; Type 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 ; Chronic pain syndrome G89.4 and Essential hypertension I10 [facility] [address], [place] [address]- 4170 Jan, Primary insomnia F51.01 [facility] [id number], [place] [address]- 8545 Jan, Type 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 [facility] [id number], [place] [address]- 5085 Jan, [facility] [id number], [place] [address]- 7899 Jan, Chronic obstructive pulmonary disease, unspecified COPD type J44.9 [facility] [id number], [place] [address]- 6564 Jan, Essential hypertension I10 ; Type 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 ; Chronic obstructive pulmonary disease, unspecified COPD type J44.9 ; Chronic kidney disease, stage 4 (severe) N18.4 ; Right carpal tunnel syndrome G56.01 ; 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 ; residential (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 and Diabetic 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 [facility] [id number] [place] [address] 03582- 2055 Jan, Gastroesophageal reflux disease without esophagitis K21.9 [facility] [address] 60490- 2909 Dec, [facility] [address] 93948- 0524 Dec, [facility] [address] 82268- 9128 Dec, residential 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 ; Chronic pain syndrome G89.4 and Essential hypertension I10 [facility] [address] 27628- 7045 Dec, [facility] [address] 57058- 3230 Dec, Type 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 [place] [id number] [place] [address] 23209- 7970 Dec, [facility] [id number] [place] [address] 51407- 6828 Dec, Gastroesophageal reflux disease without esophagitis K21.9 [facility] [id number] [place] [address] 92441- 7020 November, Type 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 [facility] [id number] [place] [address] 98278- 7603 November, [facility] [id number] [place] [address] 47313- 8810 November, Type 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 [facility] [id number] [place] [address] 42500- 2818 November, [place] [address] [place] [address] 07889- 9676 November, Type 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 [place] [address], [place] [address]- 1521 November, [place] [id number] [place] [address] 04817- 6289 Oct, Essential hypertension I10 [place] [id number] [place] [address] 21830- 8675 Oct, Psoriasis of scalp L40.9 [place] [id number] [place] [address] 51944- 9611 Oct, Essential hypertension I10 and Chronic pain syndrome G89.4 [place] [id number] [place] [address] 02159- 1926 Oct, [place] [address] [place] [address] 38459- 0362 Sep, Type 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 [place] [address] [place] [address] 18971- 1089 Sep, [place] [address] [place] [address] 60706- 4186 Sep, Type 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 [place] [address] [place] [address] 89689- 5302 Sep, Type 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 [place] [address] [place] [address] 14575- 0639 Sep, Type 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 ; Chronic kidney disease, stage 4 (severe) N18.4 ; Chronic obstructive pulmonary disease, unspecified COPD type J44.9 ; Iron deficiency anemia due to chronic blood loss D50.0 ; residential 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 ; Gastroesophageal reflux disease without esophagitis K21.9 ; Essential hypertension I10 ; Primary insomnia F51.01 ; Depression, unspecified depression type F32.9 ; Chronic pain syndrome G89.4 ; Wrist pain, right M25.531 ; Paresthesia of right upper extremity R20.2 and Psoriasis of scalp L40.9 [place] [address] 22661- 2772 Sep, [place] [address] 41476- 5101 Aug, Essential hypertension I10 [address] 80948- 6083 Aug, History of DVT (deep vein thrombosis) Z86.718 [place] [address] 24806- 3797 Aug, [place] [address] 20568- 9129 Jul, [place] [address] 66331- 2481 Jul, [place] [address] 46775- 7728 Jul, impression printer 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 ; Chronic pain syndrome G89.4 and Chronic kidney disease, stage 4 (severe) N18.4 [place] [id number] [place] [address] 11109- 7803 Jul, [place] [id number] [place] [address] 89272- 2465 Jul, [place] [address] 69586- 8625 Jul, [place] [id number] [place] [address] 21890- 7468 Jul, [place] [address] 59839- 8515 Jul, [place] [address] [place] [address] 48019- 3019 Jul, Type 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 [place] [address], [place] [address]- 3985 16 Jul, 2016 History of DVT (deep vein thrombosis) Z86.718 [place] [id number] [place] [address] 11154- 9838 Jun, [place] [id number] [place] [address] 73605- 0385 Jun, History of DVT (deep vein thrombosis) Z86.718 [place] [id number] [place] [address] 93694- 2310 15 Jun, 2016 Post traumatic stress disorder (PTSD) F43.10 [place] [id number] [place] [address] 23459- 2865 07 Jun, 2016 Type 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 ; Diabetic 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 ; Iron deficiency anemia due to chronic blood loss D50.0 ; Chronic obstructive pulmonary disease, unspecified COPD type J44.9 ; residential 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 ; History [...] pain M79.641 and Right wrist pain M25.531 [address] [place] [address] 14409- 0455 May, [place] [id number] [place] [address] 16775- 1650 May, [facility] [address] [facility] [id number] [place] [address]- 2966 May, [facility] [address] [facility] [id number] [place] [address], [place] [address]- 4366 May, [facility] [id number] [address]- 8336 May, Anemia in other chronic diseases classified elsewhere D63.8 [facility] [address] [facility] [id number] [place] [address]- 1265 May, [facility] [address] [facility] [id number] [place] [address], [place] [address]- 2930 Apr, [facility] [id number] [address]- 9716 27 Mar, 2016 Dermatofibroma D23.9 [facility] [id number] [place] [address], [place] [address]- 0095 20 Mar, 2015 [facility] [id number] [address]- 1847 14 Mar, 2015 Chronic pain syndrome G89.4 [facility] [id number] [address]- 0434 09 Mar, 2015 [facility] [address] [address]- 7116 07 Mar, 2015 [facility] [id number], [place] [address]- 2541 06 Mar, 2015 [facility] [id number] [address]- 2549 Feb, [facility] [address] [facility] [id number] [place] [address]- 2546 Feb, [facility] [id number] [address]- 5983 Feb, [facility] [address], [place] [address]- 6677 Feb, [place] [address], [place] [address]- 4206 Feb, [place] [address] [place] [address] 26967- 1839 Feb, [place] [id number] [place] [address] 38222- 4729 Feb, Type 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 ; Diabetic 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 ; Iron deficiency anemia due to chronic blood loss D50.0 ; Chronic obstructive pulmonary disease, unspecified COPD type J44.9 ; residential 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 ; History of DVT (deep vein thrombosis) Z86.718 ; Chronic pain syndrome G89.4 ; Oxygen desaturation during sleep G47.34 ; Sleep apnea in adult G47.33 ; Gastroesophageal reflux disease without esophagitis K21.9 ; Essential hypertension I10 ; Primary insomnia F51.01 ; Depression, unspecified depression type F32.9 and Renal failure, chronic, stage 4 (severe) N18.4 [place] [address] [place] [address] 68465- 9642 Feb, Skin tags, multiple acquired L91.8 [place] [address] [place] [address] 55566- 0549 Jan, [facility] [address] [place] [address] [id number] Jan, Dental examination Z01.20 [place] [address], [place] [address]- 2831 Jan, [place] [id number] [place] [address] 43757- 7357 Jan, Type 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 ; Diabetic 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 ; Iron deficiency anemia due to chronic blood loss D50.0 ; Chronic obstructive pulmonary disease, unspecified COPD type J44.9 ; residential 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 ; History of DVT (deep vein thrombosis) Z86.718 ; Chronic pain syndrome G89.4 ; Oxygen desaturation during sleep G47.34 ; Sleep apnea in adult G47.33 ; Gastroesophageal reflux disease without esophagitis K21.9 ; Essential hypertension I10 ; Primary insomnia F51.01 ; Depression, unspecified depression type F32.9 ; Skin lesion L98.9 and Renal failure, chronic, stage 4 (severe) N18.4 [facility] [id number] [place] [address] 57436- 0095 Dec, Diabetes type 2, uncontrolled E11.65 [facility] [address] 10999- 5663 Dec, [place] [address] 32417- 6117 Dec, Type 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 ; Diabetic 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 ; Iron deficiency anemia due to chronic blood loss D50.0 ; Chronic obstructive pulmonary disease, unspecified COPD type J44.9 ; residential 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 ; History of DVT (deep vein thrombosis) Z86.718 ; Chronic pain syndrome G89.4 ; Oxygen desaturation during sleep G47.34 ; Sleep apnea in adult G47.33 ; Gastroesophageal reflux disease without esophagitis K21.9 ; Essential hypertension I10 ; Primary insomnia F51.01 and Depression, unspecified depression type F32.9 [facility] [id number] [place] [address] [id number] Dec, Dental caries K02.9 [facility] [id number] [place] [address] [id number] Dec, [facility] [id number] [place] [address] [id number] Dec, Dental examination Z01.20 [facility] [id number] [place] [address] [id number] November, Dental examination Z01.20 and Dental caries K02.9 [facility] [id number] [place] [address] [id number] Oct, [facility] [address] [id number] [id number] Oct, [facility] [address] [id number][place] [id number] Sep, [facility] [address] [id number][place] [id number] Sep, [facility] [address] [id number][place] [id number] Sep, [facility] [address] [id number], [place] [id number] Sep, Other chronic pain 338.29 [facility] [id number] [place] [address] [id number] Aug, Diabetes type 2, uncontrolled E11.65 and Morbid obesity due to excess calories E66.01 [facility] [id number][place] [id number] Aug, Hair loss L65.9 [facility] [address] [id number][place] [id number] Aug, [facility] [address] [id number][place] [id number] Jul, [facility] [address] [id number][place] [id number] Jul, [facility] [address] [id number][place] [id number] Jun, [facility] [id number][place] [id number] Jun, Hair loss L65.9 and Disorder of the skin and subcutaneous tissue, unspecified L98.9 [facility] [address] [id number], [place] [id number] May, Type 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 ; Type 2 diabetes mellitus with hyperglycemia E11.65 ; Morbid obesity due to excess calories E66.01 and Essential hypertension I10 [facility] [address] [id number] [id number] May, Diabetes type 2, uncontrolled E11.65 ; Encounter for immunization Z23 and Morbid obesity due to excess calories E66.01 [facility] [id number], [place] [id number] May, [facility] [address] [address]- [address] Apr, [facility] [id number] [place] [address] [id number] Apr, Hyperglycemia R73.[address] [id number] Apr, [address] [id number] Apr, Depression F32.9 ; Encounter for immunization Z23 ; Hyperglycemia R73.9 and Anemia in other chronic diseases classified elsewhere D63.8 [facility] [place] [id number] [place] [address] [id number] Mar, [id number] [place] [address] [id number] Feb, Positive occult stool blood test 792.1 [id number] [place] [address] [id number] Feb, Depression 311 ; Other chronic pain 338.29 and Diabetes with renal manifestations, type II or unspecified type, not stated as uncontrolled 250.40 [facility] [id number] [place] [address] 76065- 8279 Feb, Occult blood in stools 792.1 [id number] [place] [address] [id number] Feb, Anemia 285.9 ; Occult blood positive stool 792.1 ; Unspecified essential hypertension 401.9 and Other chronic pain 338.29 [address] [place] [address] [id number] Feb, [id number] [place] [address] [id number] Feb, Anemia 285.9 [address] [place] [address] [id number] Feb, [id number] [place] [address] [id number] Feb, [facility] [id number], [place] [id number] Feb, Diabetes with renal manifestations, type II or unspecified type, not stated as uncontrolled 250.40 ; Other chronic pain 338.29 ; Unspecified essential hypertension 401.9 ; Anemia 285.9 and Depression 311 [facility] [address] [place] [address] [id number] Jan, [facility] [id number] [place] [address] [id number] Jan, Anemia 285.9 and Follow up V67.9 [facility] [address] [place] [address] [id number] Jan, [facility] [id number] [place] [address] [id number] Jan, [facility] [address] [place] [address] [id number] Jan, [facility] [id number] [place] [address] [id number] Dec, [facility] [id number] [place] [address] 61699- 2651 Oct, [facility] [id number] [place] [address] 97356 2546 Oct, [facility] [id number] [place] [address] 41522- 3014 Sep, [facility] [id number], [place] [id number] Sep, [facility] [address] [place] [address] 08668- 5240 Sep, [facility] [id number] [place] [address] [id number] Aug, [facility] [place] [facility] [id number] [place] [address] 94298- 4939 Aug, [facility] [place] [facility] [id number] [place] [address] 88378- 9163 Aug, [facility] [address] [id number] [place] [id number] Aug, [facility] [place] [facility] [address] [id number] [place] [address]- 9156 Aug, [facility] [place] [facility] [address] [facility] [id number] [place] [address]- 5506 Aug, [facility] [address] [id number] [place] [id number] Aug, [facility] [place] [facility] [address] [facility] [id number] [place] [address]- 2546 Aug, [facility] [address] [id number] [place] [id number] Jul, [facility] [place] [facility] [address] [facility] [id number] [place] [address]- 2476 Jul, [facility] [place] [facility] [address] [id number] [address]- 7831 Jul, [facility] [address] [id number] [place] [id number] Jul, [facility] [place] [facility] [address] [facility] [id number] [place] [address]- 5024 Jul, [facility] [address] [facility] [id number] [place] [id number] Jul, [facility] [place] [facility] [address] [facility] [id number], [place] [address]- 4661 Jul, [facility] [address] [id number] [place] [id number] Jun, [facility] [address] [id number] [place] [id number] Jun, [facility] [place] [facility] [address] [facility] [id number], [place] [address]- 6751 Jun, [facility] [place] [facility] [address] [facility] [id number] [place] [address]- 9178 Jun, [facility] [address] [id number], [place] [id number] Jun, [facility] [place] [facility] [address] [facility] [id number] [place] [address]- 1656 Jun, [facility] [address] [id number], [place] [id number] May, [facility] [place] [facility] [address] [facility] [id number] [place] [address]- 8246 May, [facility] [place] [facility] [address] [facility] [id number], [place] [address]- 4946 May, [facility] [address] [facility] [id number] [place] [id number] Apr, [facility] [place] [facility] [address] [facility] [id number], [place] [address]- 8743 Apr, [facility] [address] [facility] [id number], [place] [id number] Apr, [facility] [address] [facility] [id number], [place] [id number] Apr, [facility] [place] [facility] [address] [facility] [id number], [place] 083242- 3264 Apr, [facility] [place] [facility] [address] [facility] [id number], [place] 668426- 7840 Apr, [facility] [address] [facility] [id number], [place] [id number] Mar, [facility] [place] [facility] [address] [facility] [id number], [place] [address]- 3231 Mar, [facility] [address] [facility] [id number], [place] [id number] Mar, [facility] [place] [facility] [address] [facility] [id number], [place] [address]- 1086 17 Mar, 2014 [facility] [address] [facility] [id number], [place] [id number] 16 Mar, 2014 [facility] [place] [facility] [address] [facility] [id number], [place] [address]- 6197 Mar, [facility] [address] [id number] [place] [id number] Mar, [facility] [place] [facility] [address] [id number] [place] [address]- 9772 Mar, [facility] [address] [id number] [place] [id number] Mar, [facility] [place] [facility] [address] [id number] [place] [address]- 4149 Mar, [facility] [address] [id number] [place] [id number] Feb, [facility] [place] [facility] [address] [id number] [place] [address]- 9857 Feb, [facility] [address] [id number] [place] 904720208 Jan, [facility] [place] [facility] [address] [facility] [id number] [place] [address]- 6566 Jan, [facility] [address] [facility] [id number] [place] 960441855 Jan, [facility] [place] [facility] [address] [id number] [place]- 8126 Jan, [facility] [address] [facility] [id number] [place] 696853237 Jan, [facility] [place] [facility] [address] [id number], [place] [address]- 6942 Jan, [facility] [place] [facility] [address] [facility] [id number] [place] [address]- 5419 Dec, [facility] [place] [facility] [address] [id number] [place] [address]- 0066 Dec, [facility] [address] [id number] [place] 746345101 November, [facility] [place] [facility] [address] [id number] [place] [address]- 4000 November, [facility] [address] [id number] [place] [id number] November, [facility] [place] [facility] [address] [facility] [id number], [place] [address]- 0440 November, [facility] [address] [facility] [id number], [place] [id number] Oct, [facility] [place] [facility] [address] [facility] [id number] [place] [address]- 5420 Oct, [facility] [place] [facility] [address] [facility] [id number], [place] [address]- 9613 Oct, [facility] [place] [facility] [address] [facility] [id number] [place] [address]- 8335 Oct, [facility] [place] [facility] [address] [facility] [id number] [place] [address]- 1203 Oct, [facility] [place] [facility] [address] [facility] [id number] [place] [address]- 8787 Oct, [facility] [address] [facility] [id number], [place] [id number] Sep, [facility] [address] [facility] [id number], [place] 849239408 Sep, [facility] [place] [facility] [address] [facility] [id number], [place] [address]- 9690 Sep, [facility] [place] [facility] [address] [facility] [id number], [place] [address]- 3941 Sep, [facility] [address] [facility] [id number], [place] 932172511 Sep, [facility] [place] [facility] [address] [facility] [id number], [place] [address]- 4510 Sep, [facility] [place] [facility] [address] [facility] [id number], [place] [address]- 4693 Aug, [facility] [place] [facility] [address] [facility] [id number], [place] [address]- 8968 Aug, [facility] [address] [facility] [id number], [place] [id number] Aug, [facility] [address] [facility] [id number], [place] 826544556 Aug, [facility] [place] [facility] [address] [facility] [id number] [place] [address]- 2292 Aug, [facility] [address] [facility] [id number] [place] [id number] Aug, [facility] [place] [facility] [address] [facility] [id number] [place] [address]- 7466 Aug, [facility] [address] [facility] [id number] [place] [id number] Aug, [facility] [place] [facility] [address] [facility] [id number] [place] [address]- 2255 Aug, [facility] [address] [facility] [id number] [place] 089506869 Aug, [facility] [place] [facility] [address] [id number], [place] [address]- 1307 Aug, [facility] [address] [id number], [place] [id number] Aug, [facility] [place] [facility] [address] [id number] [address]- 2367 Aug, [facility] [place] [facility] [address] [id number], [place] [address]- 9884 Jul, [facility] [address] [facility] [id number], [place] [id number] Jun, [facility] [place] [facility] [address] [facility] [id number], [place] [address]- 9813 Jun, [facility] [place] [facility] [address] [facility] [id number], [place] [address]- 9291 Jun, [facility] [place] [facility] [address] [facility] [id number] [place] [address]- 3688 Jun, [facility] [address] [facility] [id number] [place] 014988003 Jun, [facility] [place] [facility] [address] [facility] [id number], [place] [address]- 5530 Jun, [facility] [place] [facility] [address] [id number] [place] [address]- 2546 Jun, [facility] [address] [id number] [place] [id number] Jun, [facility] [place] [facility] [address] [id number] [place] [address]- 2546 Jun, [facility] [place] [facility] [address] [id number] [place] [address]- 2546 May, [facility] [address] [id number], [place] [id number] May, [facility] [place] [facility] [address] [id number] [place] [address]- 2546 May, [facility] [place] [facility] [address] [facility] [id number] [place] [address]- 2546 May, [facility] [place] [facility] [address]00565100[facility] [place] [address]- 2546 May, [facility] [place] [facility] [address] [facility] [id number], [place] [address]- 2546 May, [facility] [address] [facility] [id number], [place] 736318351 May, [facility] [place] [facility] [address] [facility] [id number], [place] [address]- 2546 May, [facility] [address] [facility] [id number], [place] 415929024 May, [facility] [place] [facility] [address] [facility] [id number], [place] [address]- 2546 May, [facility] [address] [facility] [id number], [place] 989600448 Apr, [facility] [place] [facility] [address] [facility] [id number], [place] [address]- 2546 Apr, [facility] [place] [facility] [address] [facility] [id number], [place] [address]- 2546 Apr, [facility] [address] [facility] [id number], [place] 886316928 Apr, [facility] [place] [facility] [address] [id number], [place] [address]- 6756 Apr, [facility] [place] [facility] [address] [facility] [id number], [place] [address]- 7240 Apr, [facility] [address] [facility] [id number], [place] 308292374 Apr, [facility] [place] [facility] [address] [id number], [place] [address]- 4754 Apr, [facility] [place] [facility] [address] [facility] [id number], [place] [address]- 9368 Apr, [facility] [place] [facility] [address] [facility] [id number], [place] [address]- 4469 Apr, [facility] [address] [facility] [id number], [place] [id number] Apr, [facility] [place] [facility] [address] [facility] [id number], [place] [address]- 6100 Apr, [facility] [address] [facility] [id number], [place] 384115819 Apr, [facility] [place] [facility] [address] [facility] [id number], [place] [address]- 4264 Apr, [facility] [address] [facility] [id number], [place] 223085359 Apr, [facility] [place] [facility] [address] [facility] [id number], [place] [address]- 4769 Apr, [facility] [place] [facility] [address] [id number], [place] [address]- 7317 Apr, [facility] [place] [facility] [address] [facility] [id number], [place] [address]- 8154 Apr, [facility] [address] [facility] [id number], [place] 896104349 Apr, [facility] [place] [facility] [address] [facility] [id number], [place] [address]- 8463 Mar, [facility] [address] [id number] [place] [address]- 7845 Mar, [facility] [address] [id number] [place] [id number] Mar, [facility] [address] [id number] [place] 756077000 Mar, [facility] [address] [id number] [place] 477972553 Mar, [facility] [address] [id number] [place] [id number] Feb, [facility] [address] [id number] [place] [id number] Feb, [facility] [address] [id number] [place] 133979329 Feb, [facility] [address] [facility] [id number] [place] [address]- 7882 Feb, [facility] [address] [id number] [place] 740689714 Feb, [facility] [address] [id number] [place] 660531841 Feb, [facility] [address] [id number] [place] 592734324 Feb, [facility] [address] [id number] [place] 184918057 Feb, [facility] [address] [id number] [place] 919280952 Feb, [facility] [address] [id number] [place] 817774763 Jan, [facility] [address] [id number] [place] 772398718 Jan, [facility] [address] [id number] [place] 014501018 Jan, [facility] [address] [id number] [place] 824991512 Jan, [facility] [address] [id number] [place] 019002291 Jan, [facility] [address] [facility] [id number], [place] [address]- 3062 Jan, [facility] [address] [id number] [place] 309427900 Jan, [facility] [address] [id number] [place] 164934553 Jan, [facility] [place] [address] [id number] [place] 516[place]1047 Dec, [facility] [place] [address] [id number] [place] 232891798 November, [facility] [place] [address] [id number] [place] 347848213 November, [facility] [place] [address] [id number] [place] 650358872 November, [facility] [address] [id number] [place] 450127863 November, [facility] [address] [id number] [place] 768114664 November, [facility] [address] [id number] [place] 018966943 November, [facility] [address] [id number] [place] 694054818 Jul, [facility] [address] [id number] [place] 260334437 Jul, [facility] [address] [id number] [place] 540435122 Jul, [facility] [address] [id number] [place] 987540051 Jun, [facility] [address] [facility] [id number], [place] [address]- 7329 Jun, [facility] [place] [address] [id number] [place] 407999374 May, [facility] [address] [facility] [id number] [place] [address]- 4465 May, [facility] [place] [address] [id number] [place] 214767365 May, [facility] [place] [facility] [address] [facility] [id number], [place] [address]- 2911 14 May, 2012 [facility] [address] [facility] [id number], [place] 934050862 May, [facility] [place] [facility] [address] [facility] [id number], [place] [address]- 4966 May, [facility] [address] [id number], [place] 025913153 Apr, [facility] [place] [facility] [address] [facility] [id number] [place] [address] 37358096- 4771 Apr, [facility] [place] [facility] [address] [facility] [id number] [place] [address] 42922- 9934 Apr, [facility] [address] [facility] [id number], [place] 093138683 Apr, [facility] [id number], [place] [id number] Apr, [facility] [address] [facility] [id number], [place] [address]- 6007 Apr, [facility] [address] [facility] [id number] [place] [address] 58171- 1961 Apr, [facility] [address] [id number], [place] 361851772 Apr, [facility] [place] [facility] [address] [facility] [id number], [place] [address]- 7578 Apr, [facility] [address] [id number], [place] 865711659 Apr, [facility] [address] [id number], [place] [id number] Apr, [facility] [address] [id number], [place] 834651294 Mar, [facility] [address] [id number], [place] [id number] Feb, [facility] [address] [id number], [place] 663183406 Jan, [facility] [place] [address] [id number] [place] 793678186 Dec, [facility] [place] [address] [id number] [place] 324645230 Dec, [facility] [place] [address] [id number] [place] 534535188 Dec, [facility] [place] [address] [id number] [place] 651665079 Dec, [facility] [place] [address] [id number] [place] [id number] Dec, [facility] [place] [address] [id number] [place] 572684089 November, [facility] [place] [address] [id number] [place] [id number] November, [facility] [place] [address] [id number] [place] [id number] November, [facility] [address] [facility] [id number], [place] [address] November, [facility] [place] [address] [id number] [place] [id number] November, [facility] [place] [address] [id number] [place] [id number] November, [facility] [place] [address] [id number] [place] [id number] Oct, [facility] [place] [address] [id number] [place] [id number] Oct, [facility] [place] [address] [id number] [place] [id number] Oct, [facility] [place] [address] [id number] [place] [id number] Oct, [facility] [place] [address] [id number] [place] [id number] Oct, [facility] [place] [address] [id number] [place] [id number] Oct, [facility] [place] [address] [id number] [place] [id number] Sep, [facility] [place] [address] [id number][place] [id number] Aug, [facility] [place] [address] [facility] [id number] [place] [id number] Aug, [facility] [address] [facility] [id number] [place] [id number] Jul, [facility] [place] [facility] [address] [id number], [place] [address] Jun, [facility] [place] [facility] [address] [id number], [place] [address] Jun, [facility] [place] [facility] [address] [id number] [place] [address] Jun, [facility] [place] [facility] [address] [facility] [id number], [place] [address] Jun, [facility] [place] [facility] [address] [facility] [id number] [place] [address] May, [facility] [place] [facility] [address] [id number], [place] [address] May, [facility] [place] [facility] [address] [facility] [id number], [place] [address] Apr, [facility] [place] [facility] [address] [facility] [id number], [place] [address] Apr, [facility] [place] [facility] [address] [facility] [id number], [place] [address] Apr, [facility] [place] [facility] [address] [facility] [id number], [place] [address] Feb, [facility] [place] [facility] [address] [id number], [place] [address] Aug, [facility] [place] [facility] [address] [facility] [id number], [place] [address] Jul, [facility] [place] [facility] [address] [facility] [id number], [place] [address] Jun, [facility] [place] [facility] [address] [id number], [place] [address] 29 May, 2010 [facility] [address] [id number] [place] [address] May, [facility] [place] [facility] [address] [id number] [place] [address] May, [facility] [place] [facility] [address] [id number] [place] [address] May, [facility] [place] [facility] [address] [id number] [place] [address] May, [facility] [place] [facility] [address] [id number] [place] [address] 16 Aug, 2009 [facility] [place] [facility] [address] [id number] [place] [address] Jun, [facility] [place] [facility] [address] [facility] [id number] [place] [address] Jun, [facility] [place] [facility] [address] [id number] [place] [address] Jun, [facility] [place] [facility] [address] [facility] [id number] [place] [address] 24 May, 2009 [facility] [place] [facility] [address] [facility] [id number] [place] [address] 28 Apr, 2009 [facility] [place] [facility] [address] [facility] [id number] [place] [address] 27 Apr, 2009 [facility] [place] [facility] [address] [id number], [place] [address] 15 Apr, 2009 [facility] [place] [facility] [address] [id number], [place] [address] 20 Jan, 2009 [facility] [place] [facility] [address] [facility] [id number], [place] [address] 13 Oct, 2008 [facility] [place] [facility] [address] [facility] [id number], [place] [address] 11 May, 2008 [facility] [place] [facility] [address] [facility] [id number] [place] [address] May, IMMUNIZATIONS No Known Immunizations SOCIAL HISTORY Never Assessed REASON FOR VISIT Refill request PLAN OF CARE VITAL SIGNS MEDICATIONS Medication Instructions Dosage Frequency Start Date End Date Duration Status Advair Diskus 100 mcg-50 mcg inhalation bid, rinse mouth afterwards 1 puffs Active RESULTS No Results PROCEDURES No Known [...] Dialysis [facility] 2012 -Dr. Simon now [facility] Medical History Colonoscopy (polyps 2 ) [...]
--- OUTSIDE RECORDS SUMMARY | 2017-10-06 07:08 | XMS REPORT ---
Author Author CHELSY VILLAFANA [facility] Address [address] [place] [address] Care Team Providers Care Surveillance Director Name Role Phone CHELSY VILLAFANA Unavailable PROBLEMS Type Condition ICD9-CM Code BFM81-FO Code Onset Dates Condition Status SNOMED Code Problem Sleep apnea in adult G47.33 Active 41139157 Problem Primary insomnia F51.01 Active 8945595 Problem Chronic pain syndrome G89.4 Active 704770761 Problem FPC (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 Active 018478552 Problem Anemia in other chronic diseases classified elsewhere D63.8 Active 262260634 Problem FPC 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 Active 275614115 Problem Right carpal tunnel syndrome G56.01 Active 245090236035017 Problem 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 Active 296411993954088 Problem Chronic kidney disease, stage 4 (severe) N18.4 Active 535750654 Problem Type 2 diabetes mellitus with hyperglycemia E11.65 Active 458769238905168 Problem Psoriasis of scalp L40.9 Active 470574128 Problem Paresthesia of right upper extremity R20.2 Active 44544796 Problem Iron deficiency anemia due to chronic blood loss D50.0 Active 11030791 Problem Gastroesophageal reflux disease without esophagitis K21.9 Active 010865473 Problem Type 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 Active 912808446 Problem Diabetic 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 Active 14549850 Problem FPC 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 Active 679544253 Problem Essential hypertension I10 Active 95004542 Problem Chronic obstructive pulmonary disease, unspecified COPD type J44.9 Active 08132465 Problem Oxygen desaturation during sleep G47.34 Active 319162394 Problem History of DVT (deep vein thrombosis) Z86.718 Active 562863168 Problem Depression, unspecified depression type F32.9 Active 43879851 ALLERGIES Unknown Allergies SOCIAL HISTORY No smoking Hx information available PLAN OF CARE VITAL SIGNS MEDICATIONS Medication Instructions Dosage Frequency Start Date End Date Duration Status NovoLog Flexpen 100 UNIT/ML ICD10- E11.29 3 times a day with meals 50 Jul, Active Tresiba FlexTouch 200 UNIT/ML ICD10- E11.29 daily 150 units 24h Jul, Active RESULTS No Results PROCEDURES No Known procedures IMMUNIZATIONS No Known Immunizations
--- OUTSIDE RECORDS SUMMARY | 2017-10-06 07:08 | XMS REPORT ---
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 Active 605516483 Problem Anemia in other chronic diseases classified elsewhere D63.8 Active 985062735 Problem custodial 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 Active 970892306 Problem Right carpal tunnel syndrome G56.01 Active 726713428910857 Problem 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 Active 269970907395562 Problem Chronic kidney disease, stage 4 (severe) N18.4 Active 433206877 Problem Type 2 diabetes mellitus with hyperglycemia E11.65 Active 035140421583219 Problem Psoriasis of scalp L40.9 Active 945198239 Problem Paresthesia of right upper extremity R20.2 Active 21201877 Problem Iron deficiency anemia due to chronic blood loss D50.0 Active 05222720 Problem Gastroesophageal reflux disease without esophagitis K21.9 Active 428054564 Problem Type 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 Active 943767201 Problem Diabetic 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 Active 27184453 Problem custodial 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 Active 888819063 Problem Essential hypertension I10 Active 66511504 Problem Chronic obstructive pulmonary disease, unspecified COPD type J44.9 Active 14343065 Problem Oxygen desaturation during sleep G47.34 Active 013570979 Problem History of DVT (deep vein thrombosis) Z86.718 Active 182985172 Problem Depression, unspecified depression type F32.9 Active 93621666 ALLERGIES No Information SOCIAL HISTORY Never Assessed PLAN OF CARE VITAL SIGNS MEDICATIONS Medication Instructions Dosage Frequency Start Date End Date Duration Status Eliquis 5 mg Orally 2 times a day as directed 12h Aug, 30 days Active RESULTS No Results PROCEDURES [...] Dialysis Ruthy Reveles 2012 -Dr. Simon now [facility] Medical History Colonoscopy (polyps 2 ) [...]
--- OUTSIDE RECORDS SUMMARY | 2017-10-06 07:08 | XMS REPORT ---
Author Author CHELSY VILLAFANA [facility] e[employer] Address Unknown Phone Unavailable Care Team Providers Care Scientific Research Associate Name Role Phone CHELSY VILLAFANA CP Unavailable [...] Oxygen desaturation during sleep G47.34 Active Problem [facility] 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 Active Problem [...] Instructions Start Date End Date Status Dosage Brodyzaar [facility] [id number] 50 MG Orally Once a day 1 tablet Results No Known Results Summary Purpose eClinicalWorks Submission
--- OUTSIDE RECORDS SUMMARY | 2017-10-06 07:08 | XMS REPORT ---
Author Author CHELSY VILLAFANA [facility] Address [address] [place] [address] Care Team Providers Care Welding Machine Operator Helper Gas Name Role Phone CHELSY VILLAFANA Unavailable PROBLEMS Type Condition ICD9-CM Code BNR65-YH Code Onset Dates Condition Status SNOMED Code Problem Sleep apnea in adult G47.33 Active 63239157 Problem Primary insomnia F51.01 Active 2766186 Problem Chronic pain syndrome G89.4 Active 658337834 Problem [facility] (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 Active 746082376 Problem Anemia in other chronic diseases classified elsewhere D63.8 Active 458028021 Problem [facility] 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 Active 268887355 Problem Right carpal tunnel syndrome G56.01 Active 386021662223796 Problem 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 Active 375603420334136 Problem Chronic kidney disease, stage 4 (severe) N18.4 Active 988455554 Problem Type 2 diabetes mellitus with hyperglycemia E11.65 Active 829764970327597 Problem Psoriasis of scalp L40.9 Active 193077872 Problem Paresthesia of right upper extremity R20.2 Active 97475976 Problem Iron deficiency anemia due to chronic blood loss D50.0 Active 70511333 Problem Gastroesophageal reflux disease without esophagitis K21.9 Active 480545672 Problem Type 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 Active 530607585 Problem Diabetic 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 Active 92046276 Problem [facility] 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 Active 206707660 Problem Essential hypertension I10 Active 96784961 Problem Chronic obstructive pulmonary disease, unspecified COPD type J44.9 Active 97112088 Problem Oxygen desaturation during sleep G47.34 Active 487898002 Problem History of DVT (deep vein thrombosis) Z86.718 Active 495160485 Problem Depression, unspecified depression type F32.9 Active 28873244 ALLERGIES Unknown Allergies SOCIAL HISTORY No smoking Hx information available PLAN OF CARE VITAL SIGNS MEDICATIONS Unknown Medications RESULTS No Results PROCEDURES No Known procedures IMMUNIZATIONS No Known Immunizations
--- OUTSIDE RECORDS SUMMARY | 2017-10-06 07:09 | XMS REPORT ---
Author Author KATLYN SAXENA [facility] eClinical[employer] Address Unknown Phone Unavailable Care Team Providers Care Hearing Aid Dispenser Name Role Phone KATLYN SAXENA Unavailable Allergies [...] Instructions Start Date End Date Status Dosage Test strips NDC 0 ... 3 times a day, DX: 250.40 Apr 17, 2015 True Test Glucometer NDC 0 ... DX: 250.40 Apr 17, 2015 as directed Results No Known Results Summary Purpose eClinicalWorks Submission
--- OUTSIDE RECORDS SUMMARY | 2017-10-06 07:09 | XMS REPORT ---
Author Author KATLYN SAXENA Organization [employer] Address Unknown Phone Unavailable Care Team Providers Care Coremaker Pipe Name Role Phone KATLYN SAXENA Unavailable Allergies No Known Allergies Problems Problem Type Condition Code Onset Dates Condition Status Problem Anemia in other chronic diseases classified elsewhere D63.8 Active Problem Depression F32.9 Active Medications Medication Code System Code Instructions Start Date End Date Status Dosage Savella [facility] [address]-05 100 MG Orally Twice a day Feb 13, 2015 1 tablet Trazodone HCl [facility] [address]-94 150 MG Orally Once a day at bedtime as needed December 17, 2014 1 tablet Results No Known Results Summary Purpose eClinicalWorks Submission
--- OUTSIDE RECORDS SUMMARY | 2017-10-06 07:09 | XMS REPORT ---
Author Author HARRIET NG [facility] Address [address] [place] [address] Care Team Providers Care Circus Trainer Name Role Phone HERNANDEZ HARRIET Unavailable PROBLEMS Type Condition ICD9-CM Code CGM66-TW Code Onset Dates Condition Status SNOMED Code Problem Gastroesophageal reflux disease without esophagitis K21.9 Active 586529978 Problem Oxygen desaturation during sleep G47.34 Active 502206961 Problem Sleep apnea in adult G47.33 Active 96122977 Problem Diabetic 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 Active 96634072 Problem Iron deficiency anemia due to chronic blood loss D50.0 Active 65166652 Problem History of DVT (deep vein thrombosis) Z86.718 Active 292828603 Problem Chronic pain syndrome G89.4 Active 665865746 Problem Chronic obstructive pulmonary disease, unspecified COPD type J44.9 Active 06580328 Problem lobsterman 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 Active 084576973 Assessment Dermatofibroma D23.9 Mar, Active 302511143 Problem Type 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 Active 493304703 Problem Depression, unspecified depression type F32.9 Active 54499623 Problem Anemia in other chronic diseases classified elsewhere D63.8 Active 342315871 Problem Primary insomnia F51.01 Active 2111546 Problem Diabetes type 2, uncontrolled E11.65 Active 051009877 Problem Essential hypertension I10 Active 78528258 ALLERGIES Substance Reaction Event Type Date Status Sulfamethoxazole-Trimethoprim hives Drug Allergy Mar, Active Penicillin V Potassium anaphylaxis Drug Allergy Mar, Active plastic tape rash Non Drug Allergy Mar, Active SOCIAL HISTORY No smoking Hx information available PLAN OF CARE VITAL SIGNS Height 64 in 2016-03-31 Weight 331 lbs 2016-03-31 Heart Rate 80 bpm 2016-03-31 Respiratory Rate 22 2016-03-31 BMI 56.81 kg/m2 2016-03-31 Blood pressure systolic 98 mmHg 2016-03-31 Blood pressure diastolic 60 mmHg 2016-03-31 MEDICATIONS Medication Instructions Dosage Frequency Start Date End Date Duration Status Triamcinolone Acetonide 0.1 % Externally Twice a day 1 application to affected area 12h 27 Mar, 2016 Active RESULTS No Results PROCEDURES Procedure Date Ordered Related Diagnosis Body Site Office Visit, Est Pt., Level 3 Mar 31, 2016 FLUARIX QUAD P-FREE 3 AND UP .50 2015Mar 31, 2016 SINGLE IMMUNIZATION ADMIN Mar 31, 2016 IMMUNIZATIONS Vaccine Route Administration Date Status FLUARIX QUAD P-FREE 3 AND UP .50 2015 IM Intramuscular Mar 31, 2016 Administered
--- OUTSIDE RECORDS SUMMARY | 2017-10-06 07:09 | XMS REPORT ---
Author Author CHELSY VILLAFANA [facility] Address [address] [place] [address] Care Team Providers Care Manager Mobility Name Role Phone CHELSY VILLAFANA Unavailable PROBLEMS Type Condition ICD9-CM Code IWB36-BO Code Onset Dates Condition Status SNOMED Code Problem Sleep apnea in adult G47.33 Active 28401936 Problem Primary insomnia F51.01 Active 3796997 Problem Chronic pain syndrome G89.4 Active 074342808 Problem care home (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 Active 816817998 Problem Anemia in other chronic diseases classified elsewhere D63.8 Active 261348020 Problem care home 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 Active 034677823 Problem Right carpal tunnel syndrome G56.01 Active 603565186577916 Problem 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 Active 864495445541157 Problem Chronic kidney disease, stage 4 (severe) N18.4 Active 044349292 Problem Type 2 diabetes mellitus with hyperglycemia E11.65 Active 427905462058992 Problem Psoriasis of scalp L40.9 Active 710674531 Problem Paresthesia of right upper extremity R20.2 Active 90140100 Problem Iron deficiency anemia due to chronic blood loss D50.0 Active 77144759 Problem Gastroesophageal reflux disease without esophagitis K21.9 Active 883364149 Problem Type 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 Active 465641353 Problem Diabetic 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 Active 42529837 Problem care home 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 Active 252138784 Problem Essential hypertension I10 Active 81577239 Problem Chronic obstructive pulmonary disease, unspecified COPD type J44.9 Active 68061073 Problem Oxygen desaturation during sleep G47.34 Active 092224696 Problem History of DVT (deep vein thrombosis) Z86.718 Active 861348870 Problem Depression, unspecified depression type F32.9 Active 89786902 ALLERGIES Unknown Allergies SOCIAL HISTORY No smoking Hx information available PLAN OF CARE VITAL SIGNS MEDICATIONS Medication Instructions Dosage Frequency Start Date End Date Duration Status Ferrous Sulfate 325 (65 Fe) MG Orally Twice a day 1 tablet 12h 30 Active BD Insulin Syringe 31G X 5/16 subcutaneously with insulin as directed Jan, Active RESULTS No Results PROCEDURES No Known procedures IMMUNIZATIONS No Known Immunizations
--- OUTSIDE RECORDS SUMMARY | 2017-10-06 07:09 | XMS REPORT ---
Author Author KATLYN SAXENA [employer] Address Unknown Phone Unavailable Care Team Providers Care Director Of Revenue Cycle Management Name Role Phone KATLYN SAXENA Unavailable Allergies, Adverse Reactions, Alerts Substance Reaction Event Type Sulfacet-R Info Not Available Drug Allergy Penicillin G Sodium Info Not Available Drug Allergy Problems Problem Type Condition Code Onset Dates Condition Status Problem Depression F32.9 Active Problem Anemia in other chronic diseases classified elsewhere D63.8 Active Problem Diabetes type 2, uncontrolled E11.65 Active Assessment Morbid obesity due to excess calories E66.01 Active Assessment Diabetes type 2, uncontrolled E11.65 Active Assessment Encounter for immunization Z23 Active Medications Medication Code System Code Instructions Start Date End Date Status Dosage Victoza [facility] [address]-49 0.6 mg/0.1 mL (18 mg/3 mL) Subcutaneous Once a day Mar 08, 2014 1.8 mg Test strips [facility] 0 ... 3 times a day, DX: 250.40 Apr 17, 2015 True Test Humalog [facility] [address]-48 100 UNIT/ML Subcutaneous 3 times a day Apr 17, 2015 10 units Multivitamin [facility] [address] Orally Once a day December 10, 2011 1 tablet Protonix [facility] [address]-33 40 MG Orally Once a day Jun 06, 2014 1 tablet Seroquel [facility] [address]-76 50 MG Orally Once a day Apr 15, 2015 1 tablet at bedtime Cozaar [facility] [address]-16 50 MG Orally Once a day Apr 15, 2015 1 tablet Melatonin [facility] [address] 10 mg December 10, 2011 2 Tablet by Oral route 1 time per dayat bedtime Savella [facility] [address]-93 100 MG Orally Twice a day Feb 13, 2015 1 tablet Albuterol Sulfate [facility] [address]-46 90 mcg/actuation January 22, 2014 2 puffs by Inhalation route every 4-6 hours as needed PRN cough or wheezing Biotin [facility] [address] 1000 MCG Orally Once a day 1 tablet Trazodone HCl [facility] [address]-34 150 MG Orally Once a day at bedtime as needed December 17, 2014 1 tablet Torsemide [facility] [address]-21 100 MG Orally Once a day 1/2 tablet Gabapentin [facility] [address]-30 600 MG Orally Three times a day Aug 16, 2014 take 1 tablet Tretinoin [facility] [address]-17 0.025 % May 24, 2014 1 Application by Topical route 1 time per day Advair Diskus [facility] [address]-82 100 mcg-50 mcg Mar 08, 2014 1 puffs by Inhalation route 2 times per day (rinse mouth and throat after use) Xarelto [facility] [address]-63 20 MG Orally Once a day 1 tablet with food Lipitor [facility] [address]-69 40 MG Orally Once a day 1 tablet Levemir [facility] [address]-68 100 UNIT/ML Subcutaneous 2 times a day September 13, 2014 95 Units Glucometer [facility] 0 ... DX: 250.40 Apr 17, 2015 as directed iFerex 150 [facility] [address]-29 150 MG Orally 3 times a day 1 capsule Fish Oil Concentrate [facility] [address] 1000 MG Orally Twice a day. 2 in AM, 1 in PM Apr 12, 2012 1 capsule Procedures Procedure Coding System Code Date CPT-4 50883 May 17, 2015 SINGLE IMMUNIZATION ADMIN CPT-4 04133 May 17, 2015 GLYCATED HEMOGLOBIN TEST CPT-4 60702 May 17, 2015 Office Visit, Est Pt., Level 3 CPT-4 67491 May 17, 2015 Vital Signs Date/Time: May 17, 2015 Temperature 97.8 F Weight 331.4 lbs Height 64 in BMI 56.88 Index Blood Pressure Diastolic 78 mmHg Blood Pressure Systolic 132 mmHg Cardiac Monitoring Heart Rate 104 bpm Results No Known Results Immunizations Vaccine Administration Date May 17, 2015 Summary Purpose eClinicalWorks Submission
--- OUTSIDE RECORDS SUMMARY | 2017-10-06 07:09 | XMS REPORT ---
Author Author Melanie AKIN [facility] Address [address] [place] [address] Care Team Providers Care Vice Investigator Name Role Phone toyaAKIN Rodríguez Unavailable PROBLEMS Type Condition ICD9-CM Code BKR15-FJ Code Onset Dates Condition Status SNOMED Code Problem Chronic obstructive pulmonary disease, unspecified COPD type J44.9 Active 97136395 Problem Diabetic 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 Active 72959541 Problem Iron deficiency anemia due to chronic blood loss D50.0 Active 17989443 Problem email developer 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 Active 203609922 Problem Anemia in other chronic diseases classified elsewhere D63.8 Active 084823775 Problem residential (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 Active 870355248 Problem Right carpal tunnel syndrome G56.01 Active 620399636070467 Problem 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 Active 073016591739952 Problem Type 2 diabetes mellitus with hyperglycemia E11.65 Active 579808075215508 Problem Chronic kidney disease, stage 4 (severe) N18.4 Active 814606650 Problem Paresthesia of right upper extremity R20.2 Active 32386060 Problem Psoriasis of scalp L40.9 Active 381135094 Problem Primary insomnia F51.01 Active 9731648 Problem Essential hypertension I10 Active 60394802 Problem Type 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 Active 292747920 Problem Depression, unspecified depression type F32.9 Active 25552672 Problem Oxygen desaturation during sleep G47.34 Active 602699252 Problem Chronic pain syndrome G89.4 Active 723573058 Problem Gastroesophageal reflux disease without esophagitis K21.9 Active 731276667 Problem History of DVT (deep vein thrombosis) Z86.718 Active 743108950 Problem Sleep apnea in adult G47.33 Active 44900839 Problem email developer 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 Active 054314697 ALLERGIES Substance Reaction Event Type Date Status Sulfamethoxazole-Trimethoprim hives Drug Allergy Jun, Active Penicillin V Potassium anaphylaxis Drug Allergy Jun, Active plastic tape rash Non Drug Allergy Jun, Active SOCIAL HISTORY No smoking Hx information available PLAN OF CARE Activity Details Follow Up N/A Refer back to PCP at client request Reason: VITAL SIGNS Height 64 in 2016-06-18 Weight 330.0 lbs 2016-06-18 Heart Rate 96 bpm 2016-06-18 Respiratory Rate 22 2016-06-18 BMI 56.64 kg/m2 2016-06-18 Blood pressure systolic 147 mmHg 2016-06-18 Blood pressure diastolic 81 mmHg 2016-06-18 MEDICATIONS Medication Instructions Dosage Frequency Start Date End Date Duration Status Torsemide 100 MG Orally Once a day 1/2 tablet 24h 30 Active Fish Oil Concentrate 1000 MG Orally Twice a day. 2 in AM, 1 in PM 1 capsule Apr, Active Test strips ... True Test Active Multivitamin Orally Once a day 1 tablet 24h Dec, Active Victoza 0.6 mg/0.1 mL (18 mg/3 mL) Subcutaneous Once a day 1.8 mg 24h Active Gabapentin 600 MG Orally Three times a day take 1 tablet 8h Active Advair Diskus 100 mcg-50 mcg inhalation bid, rinse mouth afterwards 1 puffs Active Insulin Syringe-Needle U-100 29G X 1/2 subcutaneously 5 times per day as directed Active Trazodone HCl 150 MG Orally Once a day at bedtime as needed 1 tablet Active Oxygen 2 L/NC .... daily Active Melatonin 10 mg 2 Tablet by Oral route 1 time per dayat bedtime Active Seroquel 50 mg Orally Once a day at bedtime 1 tablet Active Humalog 100 UNIT/ML Subcutaneous 3 times a day 20 units 8h Active BD Pen Needle Lovely U/F 32G X 4 MM USE DIRECTED THREE (3) TIMES DAILY. Active Triamcinolone Acetonide 0.1 % Externally Twice a day 1 application to affected area 12h Mar, Active Protonix 40 MG Orally Once a day 1 tablet 24h Active Albuterol Sulfate 90 mcg/actuation inhalation every 4-6 hours as needed 1-2 puffs Active Tramadol HCl 50 mg Orally every 6 hrs, may take up to 3 times daily 1 tablet as needed for pain Active BD Insulin Syringe 31G X 5/16 subcutaneously with insulin as directed Jan, Active Xarelto 20 MG Orally Once a day 1 tablet with food 24h Active Biotin 1000 MCG Orally Once a day 1 tablet 24h Active Carafate 1 GM Orally Twice a day 1 tablet on an empty stomach 12h Active Tretinoin 0.025 % 1 Application by Topical route 1 time per day May Active Ferrous Sulfate 325 (65 Fe) MG Orally Twice a day 1 tablet 12h 24 Dec, 2015 Active Glucometer ... as directed Active Victoza 18 MG/3ML INJECT (1.8 MG) SUBCUTANEOUSLY ONCE DAILY. Active Levemir 100 UNIT/ML Subcutaneous 2 times a day 95 Units 12h Active Lipitor 40 mg Orally Once a day 1 tablet 24h Active Cozaar 50 MG Orally Once a day 1 tablet 24h Active BD Pen BD PEN NEEDLE LOVELY subcut 3 times a day as directed 8h Active Verapamil HCl CR 240 MG Orally Once a day in the morning with food 1 tablet Active RESULTS No Results PROCEDURES Procedure Date Ordered Related Diagnosis Body Site Office Visit, Est Pt., Level 5 Jun 18, 2016 IMMUNIZATIONS No Known Immunizations
--- OUTSIDE RECORDS SUMMARY | 2017-10-06 07:09 | XMS REPORT ---
Author Author CHELSY VILLAFANA [facility] Address [address] [place] [address] Care Team Providers Care Parts Counter Clerk Name Role Phone CHELSY VILLAFANA Unavailable PROBLEMS Type Condition ICD9-CM Code [id number] Code Onset Dates Condition Status SNOMED Code Problem Sleep apnea in adult G47.33 Active 59992600 Problem Primary insomnia F51.01 Active 8073957 Problem Chronic pain syndrome G89.4 Active 502303176 Problem meterman (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 Active 062642175 Problem Anemia in other chronic diseases classified elsewhere D63.8 Active 398052078 Problem alf 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 Active 991210709 Problem Right carpal tunnel syndrome G56.01 Active 456239233209446 Problem 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 Active 290553582142690 Problem Chronic kidney disease, stage 4 (severe) N18.4 Active 805833316 Problem Type 2 diabetes mellitus with hyperglycemia E11.65 Active 616173784380773 Problem Psoriasis of scalp L40.9 Active 119347402 Problem Paresthesia of right upper extremity R20.2 Active 64418433 Problem Iron deficiency anemia due to chronic blood loss D50.0 Active 19249035 Problem Gastroesophageal reflux disease without esophagitis K21.9 Active 752556058 Problem Type 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 Active 739836855 Problem Diabetic 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 Active 56524231 Problem alf 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 Active 672865664 Problem Essential hypertension I10 Active 54898628 Problem Chronic obstructive pulmonary disease, unspecified COPD type J44.9 Active 24728370 Problem Oxygen desaturation during sleep G47.34 Active 792602663 Problem History of DVT (deep vein thrombosis) Z86.718 Active 841776231 Problem Depression, unspecified depression type F32.9 Active 38950025 ALLERGIES No Information SOCIAL HISTORY Never Assessed PLAN OF CARE VITAL SIGNS MEDICATIONS Medication Instructions Dosage Frequency Start Date End Date Duration Status Cr GoldsmithTouch 200 UNIT/ML ICD10- E11.29 daily 105 units [...] Ruthy Reveles 2012 -Dr. Simon now [facility] Medical History Colonoscopy (polyps 2 ) [...]
--- OUTSIDE RECORDS SUMMARY | 2017-10-06 07:09 | XMS REPORT ---
Author Author KATLYN SAXENA [facility] [employer] Address Unknown Phone Unavailable Care Team Providers Care Fruit Buyer Name Role Phone KATLYN SAXENA Unavailable Allergies [...] Start Date End Date Status Dosage Protonix [facility] [address]-91 40 MG Orally Once a day Jun 06, 2014 1 tablet Results No Known Results Summary Purpose eClinicalWorks Submission
--- OUTSIDE RECORDS SUMMARY | 2017-10-06 07:09 | XMS REPORT ---
Author Author KATLYN SAXENA Organization [employer] Address Unknown Phone Unavailable Care Team Providers Care Scraper Tender Name Role Phone KATLYN SAXENA Unavailable Allergies No Known Allergies Problems Problem Type Condition ICD-9 Code Onset Dates Condition Status Problem Other [...] Start Date End Date Status Dosage Victoza [facility] [address]-42 0.6 mg/0.1 mL (18 mg/3 mL) Subcutaneous Once a day Mar 08, 2014 1.8 mg Results No Known Results Summary Purpose eClinicalWorks Submission
--- OUTSIDE RECORDS SUMMARY | 2017-10-06 07:09 | XMS REPORT ---
Author Author CHELSY VILLAFANA [facility] Address [address] [place] [address] Care Team Providers Care Organization Development Consultant Name Role Phone CHELSY VILLAFANA Unavailable PROBLEMS Type Condition ICD9-CM Code [id number] Code Onset Dates Condition Status SNOMED Code Problem Gastroesophageal reflux disease without esophagitis K21.9 Active 973669504 Problem Oxygen desaturation during sleep G47.34 Active 276052976 Problem Sleep apnea in adult G47.33 Active 80585843 Problem Diabetic 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 Active 67822815 Problem Iron deficiency anemia due to chronic blood loss D50.0 Active 18218429 Problem History of DVT (deep vein thrombosis) Z86.718 Active 104544153 Problem Chronic pain syndrome G89.4 Active 342677617 Problem Chronic obstructive pulmonary disease, unspecified COPD type J44.9 Active 89237294 Problem senior care 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 Active 026433169 Problem Type 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 Active 425886296 Problem Depression, unspecified depression type F32.9 Active 19217610 Problem Anemia in other chronic diseases classified elsewhere D63.8 Active 908973095 Problem Primary insomnia F51.01 Active 8171071 Problem Diabetes type 2, uncontrolled E11.65 Active 128284555 Problem Essential hypertension I10 Active 77822387 ALLERGIES Unknown Allergies SOCIAL HISTORY No smoking Hx information available PLAN OF CARE VITAL SIGNS MEDICATIONS Medication Instructions Dosage Frequency Start Date End Date Duration Status Ferrous Sulfate 325 (65 Fe) MG Orally Twice a day 1 tablet 12h 24 Dec, 2015 30 day(s) Active RESULTS No Results PROCEDURES No Known procedures IMMUNIZATIONS No Known Immunizations
--- OUTSIDE RECORDS SUMMARY | 2017-10-06 07:10 | XMS REPORT ---
Author Author JETHRO SHETH [facility] Address [address] [place] [address] Care Team Providers Care Operating Room Orderly Name Role Phone JETHRO SHETH Unavailable PROBLEMS Type Condition ICD9-CM Code [id number] Code Onset Dates Condition Status SNOMED Code Problem Sleep apnea in adult G47.33 Active 02519640 Problem Primary insomnia F51.01 Active 2788768 Problem Chronic pain syndrome G89.4 Active 888588119 Problem detention (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 Active 604927425 Problem Anemia in other chronic diseases classified elsewhere D63.8 Active 475968762 Problem detention 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 Active 478757447 Problem Right carpal tunnel syndrome G56.01 Active 245328126494618 Problem 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 Active 129695714658600 Problem Chronic kidney disease, stage 4 (severe) N18.4 Active 908397255 Problem Type 2 diabetes mellitus with hyperglycemia E11.65 Active 326512723033606 Problem Psoriasis of scalp L40.9 Active 772318808 Problem Paresthesia of right upper extremity R20.2 Active 95705096 Problem Iron deficiency anemia due to chronic blood loss D50.0 Active 39608719 Problem Gastroesophageal reflux disease without esophagitis K21.9 Active 729416112 Problem Type 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 Active 760254215 Problem Diabetic 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 Active 26333608 Problem long term care pharmacist 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 Active 042279242 Problem Essential hypertension I10 Active 61487463 Problem Chronic obstructive pulmonary disease, unspecified COPD type J44.9 Active 59331263 Problem Oxygen desaturation during sleep G47.34 Active 874364568 Problem History of DVT (deep vein thrombosis) Z86.718 Active 485555004 Problem Depression, unspecified depression type F32.9 Active 66740683 ALLERGIES Unknown Allergies SOCIAL HISTORY No smoking Hx information available PLAN OF CARE VITAL SIGNS MEDICATIONS Unknown Medications RESULTS No Results PROCEDURES No Known procedures IMMUNIZATIONS No Known Immunizations
--- OUTSIDE RECORDS SUMMARY | 2017-10-06 07:10 | XMS REPORT ---
Author Author CHELSY VILLAFANA [facility] Address [address] [place] [address] Care Team Providers Care Commercial Insulator Name Role Phone CHELSY VILLAFANA Unavailable PROBLEMS Type Condition ICD9-CM Code [id number] Code Onset Dates Condition Status SNOMED Code Problem Sleep apnea in adult G47.33 Active 04231739 Problem Primary insomnia F51.01 Active 0981603 Problem Chronic pain syndrome G89.4 Active 242181303 Problem buttermaker continuous churn (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 Active 468901907 Problem Anemia in other chronic diseases classified elsewhere D63.8 Active 227684804 Problem alf 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 Active 280967238 Problem Right carpal tunnel syndrome G56.01 Active 863924861755696 Problem 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 Active 543220730889084 Problem Chronic kidney disease, stage 4 (severe) N18.4 Active 771006473 Problem Type 2 diabetes mellitus with hyperglycemia E11.65 Active 703158872377016 Problem Psoriasis of scalp L40.9 Active 591232509 Problem Paresthesia of right upper extremity R20.2 Active 82700566 Problem Iron deficiency anemia due to chronic blood loss D50.0 Active 08099589 Problem Gastroesophageal reflux disease without esophagitis K21.9 Active 224331195 Problem Type 2 diabetes mellitus with other diabetic kidney complication E11.29 Active 009395711 Problem Diabetic 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 Active 84483858 Problem alf 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 Active 207422721 Problem Essential hypertension I10 Active 75259430 Problem Chronic obstructive pulmonary disease, unspecified COPD type J44.9 Active 00478369 Problem Oxygen desaturation during sleep G47.34 Active 176065594 Problem History of DVT (deep vein thrombosis) Z86.718 Active 851988081 Problem Depression, unspecified depression type F32.9 Active 66892951 ALLERGIES No Information SOCIAL HISTORY Never Assessed [...] Dialysis Ruthy Reveles 2012 -Dr. Simon now [facility] Medical History Colonoscopy (polyps 2 ) [...]
--- OUTSIDE RECORDS SUMMARY | 2017-10-06 07:10 | XMS REPORT ---
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 Name Role Phone KATLYN SAXENA Unavailable Allergies, Adverse Reactions, Alerts Substance Reaction Event Type Sulfacet-R Info Not Available Drug Allergy Penicillin G Sodium Info Not Available Drug Allergy Problems Problem Type Condition Code Onset Dates Condition Status Problem Anemia in other chronic diseases classified elsewhere D63.8 Active Assessment Depression F32.9 Active Problem Depression F32.9 Active Assessment Anemia in other chronic diseases classified elsewhere D63.8 Active Assessment Encounter for immunization Z23 Active Assessment Hyperglycemia R73.9 Active Medications Medication Code System Code Instructions Start Date End Date Status Dosage Savella [facility] [address]-97 100 MG Orally Twice a day Feb 13, 2015 1 tablet Albuterol Sulfate [facility] [address]-41 90 mcg/actuation January 22, 2014 2 puffs by Inhalation route every 4-6 hours as needed PRN cough or wheezing Tretinoin [facility] [address]-72 0.025 % May 24, 2014 1 Application by Topical route 1 time per day iFerex [address] [facility] [address]-56 150 MG Orally 3 times a day [address] [facility] [address]-03 100 UNIT/ML Subcutaneous 2 times a day September 13, [address] [facility] 0 50 mg Apr 20, 2014 take 1 tablet by Oral route every 6 hours as needed PRN May take up to 3 times per day as needed for pain. Torsemide [facility] [address]-03 100 MG Orally Once a day 1/[address] [facility] [address] December 10, 2011 2 Tablet by Oral route 1 Verapamil HCl CR [facility] [address]-29 240 MG Orally Once a day in the morning with food February 01, [address] [facility] [address]-77 50 MG Orally Once a day Apr 15, 2015 1 tablet Fexofenadine HCl [facility] [address]-81 180 MG Orally Once a day Feb 13, 2015 May 14, 2015 1 tablet Fish Oil Concentrate [facility] [address] 1000 mg Orally Twice a day 2 caps in AM 1 caps in PM Apr 12, [address] [facility] [address]-18 20 MG Orally Once a day 1 tablet with food Seroquel [facility] [address]-39 50 MG Orally Once a day Apr 15, 2015 1 tablet at bedtime Humalog KwikPen [facility] [address]-21 100 UNIT/ML Subcutaneous 3 times a day Apr 15, 2015 8 units Advair Diskus [facility] [address]-81 100 mcg-50 mcg Mar 08, 2014 1 puffs by Inhalation route 2 times per day (rinse mouth and throat after use) Melatonin [facility] [address] 10 mg December 10, 2011 2 Tablet by Oral route 1 time per dayat bedtime Pravastatin Sodium [facility] [address]-53 80 MG Orally Once a day December 17, 2014 1 tablet Blood Glucose Test Strip [facility] 0 Blood Glucose 4 times a day Apr 15, [address] [facility] [address]-14 600 MG Orally Three times a day Aug 16, 2014 take [address] [facility] [address]-98 0.6 mg/0.1 mL (18 mg/3 mL) Subcutaneous Once a day Mar 08, 2014 1.[address] [facility] [address]-99 40 MG Orally Once a day Jun 06, 2014 1 tablet Trazodone HCl [facility] [address]-27 150 MG Orally Once a day at bedtime as needed December 17, 2014 1 tablet Procedures Procedure Coding System Code Date HEMOGLOBIN CPT-4 59998 Apr 15, 2015 VENIPUNCT, ROUTINE* CPT-4 89720 Apr 15, 2015 ASSAY THYROID STIM HORMONE CPT-4 07649 Apr 15, 2015 SINGLE IMMUNIZATION ADMIN CPT-4 67675 Apr 15, 2015 FLUARIX QUAD (3 & UP)-GSK-2014 CPT-4 45994 Apr 15, 2015 Office Visit, Est Pt., Level 3 CPT-4 25934 Apr 15, 2015 Vital Signs Date/Time: Apr 15, 2015 Temperature 97.9 F Weight 321.4 lbs Height 64 in BMI 55.16 Index Blood Pressure Diastolic 100 mmHg Blood Pressure Systolic 194 mmHg Cardiac Monitoring Heart Rate 107 bpm Results Name Result Date Reference Range Unit Abnormality Flag TSH ROUTINE VENIPUNCTURE HEMOGLOBIN (IN HOUSE) Immunizations Vaccine Administration Date FLUARIX QUAD (3 & UP)-GSK-2014Apr 15, 2015 Summary Purpose eClinicalWorks Submission
[2017-10-06] MEDS ORDERED: NS IV 1000 ML 1,000 ML IV SCH ×2 (07:15→11:12)
--- OUTSIDE RECORDS SUMMARY | 2017-10-06 07:18 | XMS REPORT | Continuity of Care Document ---
Author Author [facility] Address Unknown Phone Unavailable Allergies Active Description Code Type Severity Reaction Onset Reported/Identified Relationship to Patient Clinical Status Yes Penicillins Drug Allergy N/A N/A 10/15/2008 Yes sulfADIAZINE Drug Allergy N/ A N/A 10/15/2008 Yes Penicillins Drug Allergy 10/15/2008 Yes sulfADIAZINE Drug Allergy 10/15/2008 Yes plastic like plastic tape plastic like plastic tape Moderate rash 2012 Yes PCN PCN Unknown N/ A 12/11/2013 Yes Sulfa (Sulfonamide Antibiotics) [id number] Drug Allergy Unknown N/A 2013 Yes insulin aspart [id number] Drug Allergy Mild NAUSEA 07/24/2014 Medications There is no data. Problems Date Dx Coded Attending Type Code Diagnosis Diagnosed By 05/07/2008 AIMEE CONKLIN MD 112.1 CANDIDIASIS VAGINAL 05/07/2008 AIMEE CONKLIN MD 338.4 CHRONIC PAIN SYNDROME 05/07/2008 AIMEE CONKLIN MD 709.9 DERMATITIS OTHER SKIN DISORDERS 05/07/2008 AIMEE CONKLIN MD 788.1 DYSURIA 05/07/2008 AIMEE CONKLIN MD 112.1 CANDIDIASIS VAGINAL 05/07/2008 AIMEE CONKLIN MD 338.4 CHRONIC PAIN SYNDROME 05/07/2008 AIMEE CONKLIN MD 709.9 DERMATITIS OTHER SKIN DISORDERS 05/07/2008 AIMEE CONKLIN MD 788.1 DYSURIA 05/07/2008 112.1 CANDIDIASIS VAGINAL 05/07/2008 338.4 CHRONIC PAIN SYNDROME 05/07/2008 709.9 DERMATITIS OTHER SKIN DISORDERS 05/07/2008 788.1 DYSURIA 05/07/2008 AIMEE CONKLIN MD 112.1 CANDIDIASIS VAGINAL 05/07/2008 AIMEE CONKLIN MD 338.4 CHRONIC PAIN SYNDROME 05/07/2008 AIMEE CONKLIN MD 709.9 DERMATITIS OTHER SKIN DISORDERS 05/07/2008 AIMEE CONKLIN MD 788.1 DYSURIA 05/07/2008 112.1 CANDIDIASIS VAGINAL 05/07/2008 338.4 CHRONIC PAIN SYNDROME 05/07/2008 709.9 DERMATITIS OTHER SKIN DISORDERS 05/07/2008 788.1 DYSURIA 05/07/2008 112.1 CANDIDIASIS VAGINAL 05/07/2008 338.4 CHRONIC PAIN SYNDROME 05/07/2008 709.9 DERMATITIS OTHER SKIN DISORDERS 05/07/2008 788.1 DYSURIA 05/07/2008 112.1 CANDIDIASIS VAGINAL 05/07/2008 338.4 CHRONIC PAIN SYNDROME 05/07/2008 709.9 DERMATITIS OTHER SKIN DISORDERS 05/07/2008 788.1 DYSURIA 05/07/2008 112.1 CANDIDIASIS VAGINAL 05/07/2008 338.4 CHRONIC PAIN SYNDROME 05/07/2008 709.9 DERMATITIS OTHER SKIN DISORDERS 05/07/2008 788.1 DYSURIA 05/07/2008 112.1 CANDIDIASIS VAGINAL 05/07/2008 338.4 CHRONIC PAIN SYNDROME 05/07/2008 709.9 DERMATITIS OTHER SKIN DISORDERS 05/07/2008 788.1 DYSURIA 05/07/2008 112.1 CANDIDIASIS VAGINAL 05/07/2008 338.4 CHRONIC PAIN SYNDROME 05/07/2008 709.9 DERMATITIS OTHER SKIN DISORDERS 05/07/2008 788.1 DYSURIA 05/07/2008 112.1 CANDIDIASIS VAGINAL 05/07/2008 338.4 CHRONIC PAIN SYNDROME 05/07/2008 709.9 DERMATITIS OTHER SKIN DISORDERS 05/07/2008 788.1 DYSURIA 05/07/2008 REAL DO, SHAYNA K 112.1 CANDIDIASIS VAGINAL 05/07/2008 REAL DO, SHAYNA K 338.4 CHRONIC PAIN SYNDROME 05/07/2008 REAL DO, SAHYNA K 709.9 DERMATITIS OTHER SKIN DISORDERS 05/07/2008 REAL DO, SHAYNA K 788.1 DYSURIA 05/07/2008 REAL DO, SHAYNA K 112.1 CANDIDIASIS VAGINAL 05/07/2008 REAL DO, SHAYNA K 338.4 CHRONIC PAIN SYNDROME 05/07/2008 REAL DO, SHAYNA K 709.9 DERMATITIS OTHER SKIN DISORDERS 05/07/2008 REAL DO, SHAYNA K 788.1 DYSURIA 05/07/2008 REAL DO, SHAYNA K 112.1 CANDIDIASIS VAGINAL 05/07/2008 REAL DO, SHAYNA K 338.4 CHRONIC PAIN SYNDROME 05/07/2008 REAL DO, SHAYNA K 709.9 DERMATITIS OTHER SKIN DISORDERS 05/07/2008 REAL DO, SHAYNA K 788.1 DYSURIA 05/07/2008 REAL DO, SHAYNA K 112.1 CANDIDIASIS VAGINAL 05/07/2008 REAL DO, SHAYNA K 338.4 CHRONIC PAIN SYNDROME 05/07/2008 REAL DO, SHAYNA K 709.9 DERMATITIS OTHER SKIN DISORDERS 05/07/2008 REAL DO, SHAYNA K 788.1 DYSURIA 05/07/2008 REAL DO, SHAYNA K 112.1 CANDIDIASIS VAGINAL 05/07/2008 REAL DO, SHAYNA K 338.4 CHRONIC PAIN SYNDROME 05/07/2008 REAL DO, SHAYNA K 709.9 DERMATITIS OTHER SKIN DISORDERS 05/07/2008 REAL DO, SHAYNA K 788.1 DYSURIA 05/07/2008 REAL DO, SHAYNA K 112.1 CANDIDIASIS VAGINAL 05/07/2008 REAL DO, SHAYNA K 338.4 CHRONIC PAIN SYNDROME 05/07/2008 REAL DO, SHAYNA K 709.9 DERMATITIS OTHER SKIN DISORDERS 05/07/2008 REAL DO, SHAYNA K 788.1 DYSURIA 05/07/2008 REAL DO, SHAYNA K 112.1 CANDIDIASIS VAGINAL 05/07/2008 REAL DO, SHAYNA K 338.4 CHRONIC PAIN SYNDROME 05/07/2008 REAL DO, SHAYNA K 709.9 DERMATITIS OTHER SKIN DISORDERS 05/07/2008 REAL DO, SHAYNA K 788.1 DYSURIA 05/07/2008 REAL DO, SHAYNA K 112.1 CANDIDIASIS VAGINAL 05/07/2008 REAL DO, SHAYNA K 338.4 CHRONIC PAIN SYNDROME 05/07/2008 REAL DO, SHAYNA K 709.9 DERMATITIS OTHER SKIN DISORDERS 05/07/2008 REAL DO, SHAYNA K 788.1 DYSURIA 05/07/2008 REAL DO, SHAYNA K 112.1 CANDIDIASIS VAGINAL 05/07/2008 REAL DO, SHAYNA K 338.4 CHRONIC PAIN SYNDROME 05/07/2008 REAL DO, SHAYNA K 709.9 DERMATITIS OTHER SKIN DISORDERS 05/07/2008 REAL DO, SHAYNA K 788.1 DYSURIA 05/07/2008 REAL DO, SHAYNA K 112.1 CANDIDIASIS VAGINAL 05/07/2008 REAL DO, SHAYNA K 338.4 CHRONIC PAIN SYNDROME 05/07/2008 REAL DO, SHAYNA K 709.9 DERMATITIS OTHER SKIN DISORDERS 05/07/2008 REAL DO, SHAYNA K 788.1 DYSURIA 05/07/2008 SOHAN HINES, JAY M 112.1 CANDIDIASIS VAGINAL 05/07/2008 SOHAN HINES, JAY M 338.4 CHRONIC PAIN SYNDROME 05/07/2008 SOHAN HINES, JAY M 709.9 DERMATITIS OTHER SKIN DISORDERS 05/07/2008 SOHAN HINES, JAY M 788.1 DYSURIA 05/07/2008 REAL DO, SHAYNA K 112.1 CANDIDIASIS VAGINAL 05/07/2008 REAL DO, SHAYNA K 338.4 CHRONIC PAIN SYNDROME 05/07/2008 REAL DO SHAYNA K 709.9 DERMATITIS OTHER SKIN DISORDERS 05/07/2008 REAL DO, SHAYNA K 788.1 DYSURIA 05/07/2008 SOHAN HINES, JAY M 112.1 CANDIDIASIS VAGINAL 05/07/2008 SOHAN HINES, JAY M 338.4 CHRONIC PAIN SYNDROME 05/07/2008 SOHAN HINES, JAY M 709.9 DERMATITIS OTHER SKIN DISORDERS 05/07/2008 SOHAN HINES, JAY M 788.1 DYSURIA 05/07/2008 REAL DO, SHAYNA K 112.1 CANDIDIASIS VAGINAL 05/07/2008 REAL DO, SHAYNA K 338.4 CHRONIC PAIN SYNDROME 05/07/2008 REAL DO, SHAYNA K 709.9 DERMATITIS OTHER SKIN DISORDERS 05/07/2008 REAL DO, SHAYNA K 788.1 DYSURIA 05/07/2008 REAL DO, SHAYNA K 112.1 CANDIDIASIS VAGINAL 05/07/2008 REAL DO, SHAYNA K 338.4 CHRONIC PAIN SYNDROME 05/07/2008 REAL DO, SHAYNA K 709.9 DERMATITIS OTHER SKIN DISORDERS 05/07/2008 REAL DO, SHAYNA K 788.1 DYSURIA 05/07/2008 REAL DO, SHAYNA K 112.1 CANDIDIASIS VAGINAL 05/07/2008 REAL DO, SHAYNA K 338.4 CHRONIC PAIN SYNDROME 05/07/2008 REAL DO, SHAYNA K 709.9 DERMATITIS OTHER SKIN DISORDERS 05/07/2008 REAL DO SHAYNA K 788.1 DYSURIA 05/07/2008 JETHRO SHETH MD 112.1 CANDIDIASIS VAGINAL 05/07/2008 JETHRO SHETH MD 338.4 CHRONIC PAIN SYNDROME 05/07/2008 JETHRO SHETH MD 709.9 DERMATITIS OTHER SKIN DISORDERS 05/07/2008 JETHRO SHETH MD 788.1 DYSURIA 05/07/2008 JETHRO SHETH MD 112.1 CANDIDIASIS VAGINAL 05/07/2008 JETHRO SHETH MD 338.4 CHRONIC PAIN SYNDROME 05/07/2008 JETHRO SHETH MD 709.9 DERMATITIS OTHER SKIN DISORDERS 05/07/2008 JETHRO SHETH MD 788.1 DYSURIA 05/07/2008 REAL DO, SHAYNA K 112.1 CANDIDIASIS VAGINAL 05/07/2008 REAL DO, SHAYNA K 338.4 CHRONIC PAIN SYNDROME 05/07/2008 REAL DO, SHAYNA K 709.9 DERMATITIS OTHER SKIN DISORDERS 05/07/2008 REAL DO, SHAYNA K 788.1 DYSURIA 05/07/2008 HELLCRISTAL HARRINGTON KATLYN E 112.1 CANDIDIASIS VAGINAL 05/07/2008 HELLCRISTAL HARRINGTON KATLYN E 338.4 CHRONIC PAIN SYNDROME 05/07/2008 HELLCRISTAL HARRINGTON KATLYN E 709.9 DERMATITIS OTHER SKIN DISORDERS 05/07/2008 HELLCRISTAL HARRINGTON KATLYN E 788.1 DYSURIA 05/07/2008 ELOYLCRISTAL HARRINGTON KATLYN E 112.1 CANDIDIASIS VAGINAL 05/07/2008 HELLCRISTAL HARRINGTON KATLYN E 338.4 CHRONIC PAIN SYNDROME 05/07/2008 HELLCRISTAL HARRINGTON KATLYN E 709.9 DERMATITIS OTHER SKIN DISORDERS 05/07/2008 HELLWIG 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, KATLYN E 788.1 DYSURIA 05/07/2008 REAL DO, SHAYNA K 112.1 CANDIDIASIS VAGINAL 05/07/2008 REAL DO, SHAYNA K 338.4 CHRONIC PAIN SYNDROME 05/07/2008 REAL DO, SHAYNA K 709.9 DERMATITIS OTHER SKIN DISORDERS 05/07/2008 REAL DO, SHAYNA K 788.1 DYSURIA 05/07/2008 HELLCRISTAL HARRINGTON KATLYN E 112.1 CANDIDIASIS VAGINAL 05/07/2008 HELLWIG LEN KATLYN E 338.4 CHRONIC PAIN SYNDROME 05/07/2008 HELLWIG LEN KATLYN E 709.9 DERMATITIS OTHER SKIN DISORDERS 05/07/2008 HELLWIG LEN KATLYN E 788.1 DYSURIA 05/07/2008 REAL DO, SHAYNA K 112.1 CANDIDIASIS VAGINAL 05/07/2008 REAL DO, SHAYNA K 338.4 CHRONIC PAIN SYNDROME 05/07/2008 REAL DO, SHAYNA K 709.9 DERMATITIS OTHER SKIN DISORDERS 05/07/2008 REAL DO, SHAYNA K 788.1 DYSURIA 05/07/2008 ROSSY DE LA TORRE MD N 112.1 CANDIDIASIS VAGINAL 05/07/2008 ROSSY DE LA TORRE MD N 338.4 CHRONIC PAIN SYNDROME 05/07/2008 ROSSY DE LA TORRE MD N 709.9 DERMATITIS OTHER SKIN DISORDERS 05/07/2008 ROSSY DE LA TORRE MD N 788.1 DYSURIA 05/07/2008 KATLYN SAXENA APRN E 112.1 CANDIDIASIS VAGINAL 05/07/2008 KATLYN SAXENA APRN E 338.4 CHRONIC PAIN SYNDROME 05/07/2008 KATLYN SAXENA APRN E 709.9 DERMATITIS OTHER SKIN DISORDERS 05/07/2008 KATLYN SAXENA APRN E 788.1 DYSURIA 05/08/2008 AIMEE CONKLIN MD 599.0 URINARY TRACT INFECTION 05/08/2008 AIMEE CONKLIN MD 599.0 URINARY TRACT INFECTION 05/08/2008 599.0 URINARY TRACT INFECTION 05/08/2008 AIMEE CONKLIN MD 599.0 URINARY TRACT INFECTION 05/08/2008 599.0 URINARY TRACT INFECTION 05/08/2008 599.0 URINARY TRACT INFECTION 05/08/2008 599.0 URINARY TRACT INFECTION 05/08/2008 599.0 URINARY TRACT INFECTION 05/08/2008 599.0 URINARY TRACT INFECTION 05/08/2008 599.0 URINARY TRACT INFECTION 05/08/2008 599.0 URINARY TRACT INFECTION 05/08/2008 REAL DO, SHAYNA K 599.0 URINARY TRACT INFECTION 05/08/2008 REAL DO, SHAYNA K 599.0 URINARY TRACT INFECTION 05/08/2008 REAL DO, SHAYNA K 599.0 URINARY TRACT INFECTION 05/08/2008 REAL DO, SHAYNA K 599.0 URINARY TRACT INFECTION 05/08/2008 REAL DO, SHAYNA K 599.0 URINARY TRACT INFECTION 05/08/2008 REAL DO, SHAYNA K 599.0 URINARY TRACT INFECTION 05/08/2008 REAL DO, SHAYNA K 599.0 URINARY TRACT INFECTION 05/08/2008 REAL DO, SHAYNA K 599.0 URINARY TRACT INFECTION 05/08/2008 REAL DO, SHAYNA K 599.0 URINARY TRACT INFECTION 05/08/2008 REAL DO, SHAYNA K 599.0 URINARY TRACT INFECTION 05/08/2008 SOHAN HINES, JAY Overton 599.0 URINARY TRACT INFECTION 05/08/2008 REAL DO, SHAYNA K 599.0 URINARY TRACT INFECTION 05/08/2008 SOHAN HINES, JAY M 599.0 URINARY TRACT INFECTION 05/08/2008 REAL DO, SHAYNA K 599.0 URINARY TRACT INFECTION 05/08/2008 REAL DO, SHAYNA K 599.0 URINARY TRACT INFECTION 05/08/2008 REAL DO, SHAYNA K 599.0 URINARY TRACT INFECTION 05/08/2008 JETHRO SHETH MD 599.0 URINARY TRACT INFECTION 05/08/2008 JETHRO SHETH MD 599.0 URINARY TRACT INFECTION 05/08/2008 REAL DO, SHAYNA K 599.0 URINARY TRACT INFECTION 05/08/2008 HELVANESSA 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, KATLYN E 599.0 URINARY TRACT INFECTION 05/08/2008 HEMANTH 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, KATLYN E 599.0 URINARY TRACT INFECTION 05/08/2008 REAL DO, SHAYNA K 599.0 URINARY TRACT INFECTION 05/08/2008 HELVANESSA HARRINGTON, KATLYN E 599.0 URINARY TRACT INFECTION 05/08/2008 REAL DO, SHAYNA K 599.0 URINARY TRACT INFECTION 05/08/2008 BRITT HINES, ROSSY Carl 599.0 URINARY TRACT INFECTION 05/08/2008 HELJAMEL MENDEZ APRNSIE E 599.0 URINARY TRACT INFECTION 05/10/2008 AIMEE CONKLIN MD 300.00 ANXIETY 05/10/2008 AIMEE CONKLIN MD 682.9 CELLULITIS AND ABSCESS OF UNSPECIFIED SITES 05/10/2008 AIMEE CONKLIN MD 300.00 ANXIETY 05/10/2008 AIMEE CONKLIN MD 682.9 CELLULITIS AND ABSCESS OF UNSPECIFIED SITES 05/10/2008 300.00 ANXIETY 05/10/2008 682.9 CELLULITIS AND ABSCESS OF UNSPECIFIED SITES 05/10/2008 AIMEE CONKLIN MD 300.00 ANXIETY 05/10/2008 AIMEE CONKLIN MD 682.9 CELLULITIS AND ABSCESS OF UNSPECIFIED SITES 05/10/2008 300.00 ANXIETY 05/10/2008 682.9 CELLULITIS AND ABSCESS OF UNSPECIFIED SITES 05/10/2008 300.00 ANXIETY 05/10/2008 682.9 CELLULITIS AND ABSCESS OF UNSPECIFIED SITES 05/10/2008 300.00 ANXIETY 05/10/2008 682.9 CELLULITIS AND ABSCESS OF UNSPECIFIED SITES 05/10/2008 300.00 ANXIETY 05/10/2008 682.9 CELLULITIS AND ABSCESS OF UNSPECIFIED SITES 05/10/2008 300.00 ANXIETY 05/10/2008 682.9 CELLULITIS AND ABSCESS OF UNSPECIFIED SITES 05/10/2008 300.00 ANXIETY 05/10/2008 682.9 CELLULITIS AND ABSCESS OF UNSPECIFIED SITES 05/10/2008 300.00 ANXIETY 05/10/2008 682.9 CELLULITIS AND ABSCESS OF UNSPECIFIED SITES 05/10/2008 REAL DO, SHAYNA K 300.00 ANXIETY 05/10/2008 REAL DO, SHAYNA K 682.9 CELLULITIS AND ABSCESS OF UNSPECIFIED SITES 05/10/2008 REAL DO, SHAYNA K 300.00 ANXIETY 05/10/2008 REAL DO, SHAYNA K 682.9 CELLULITIS AND ABSCESS OF UNSPECIFIED SITES 05/10/2008 REAL DO, SHAYNA K 300.00 ANXIETY 05/10/2008 REAL DO, SHAYNA K 682.9 CELLULITIS AND ABSCESS OF UNSPECIFIED SITES 05/10/2008 REAL DO, SHAYNA K 300.00 ANXIETY 05/10/2008 REAL DO, SHAYNA K 682.9 CELLULITIS AND ABSCESS OF UNSPECIFIED SITES 05/10/2008 REAL DO, SHAYNA K 300.00 ANXIETY 05/10/2008 REAL DO, SHAYNA K 682.9 CELLULITIS AND ABSCESS OF UNSPECIFIED SITES 05/10/2008 REAL DO, SHAYNA K 300.00 ANXIETY 05/10/2008 REAL DO, SHAYNA K 682.9 CELLULITIS AND ABSCESS OF UNSPECIFIED SITES 05/10/2008 REAL DO, SHAYNA K 300.00 ANXIETY 05/10/2008 REAL DO, SHAYNA K 682.9 CELLULITIS AND ABSCESS OF UNSPECIFIED SITES 05/10/2008 REAL DO, SHAYNA K 300.00 ANXIETY 05/10/2008 REAL DO, SHAYNA K 682.9 CELLULITIS AND ABSCESS OF UNSPECIFIED SITES 05/10/2008 REAL DO, SHAYNA K 300.00 ANXIETY 05/10/2008 REAL DO, SHAYNA K 682.9 CELLULITIS AND ABSCESS OF UNSPECIFIED SITES 05/10/2008 REAL DO, SHAYNA K 300.00 ANXIETY 05/10/2008 REAL DO, SHAYNA K 682.9 CELLULITIS AND ABSCESS OF UNSPECIFIED SITES 05/10/2008 SOHAN HINES, JAY M 300.00 ANXIETY 05/10/2008 SOHAN HINES, JAY Overton 682.9 CELLULITIS AND ABSCESS OF UNSPECIFIED SITES 05/10/2008 REAL DO, SHAYNA K 300.00 ANXIETY 05/10/2008 REAL DO, SHAYNA K 682.9 CELLULITIS AND ABSCESS OF UNSPECIFIED SITES 05/10/2008 SOHAN HINES, JAY Overton 300.00 ANXIETY 05/10/2008 SOHAN HINES, JAY Overton 682.9 CELLULITIS AND ABSCESS OF UNSPECIFIED SITES 05/10/2008 REAL DO, SHAYNA K 300.00 ANXIETY 05/10/2008 REAL DO, SHAYNA K 682.9 CELLULITIS AND ABSCESS OF UNSPECIFIED SITES 05/10/2008 REAL DO, SHAYNA K 300.00 ANXIETY 05/10/2008 REAL DO SHAYNA K 682.9 CELLULITIS AND ABSCESS OF UNSPECIFIED SITES 05/10/2008 REAL DO, SHAYNA K 300.00 ANXIETY 05/10/2008 REAL DO SHAYNA K 682.9 CELLULITIS AND ABSCESS OF UNSPECIFIED SITES 05/10/2008 JETHRO SHETH MD 300.00 ANXIETY 05/10/2008 JETHRO SHETH MD 682.9 CELLULITIS AND ABSCESS OF UNSPECIFIED SITES 05/10/2008 JETHRO SHETH MD 300.00 ANXIETY 05/10/2008 JETHRO SHETH MD 682.9 CELLULITIS AND ABSCESS OF UNSPECIFIED SITES 05/10/2008 REAL DO, SHAYNA K 300.00 ANXIETY 05/10/2008 REAL DO SHAYNA K 682.9 CELLULITIS AND ABSCESS OF UNSPECIFIED SITES 05/10/2008 JAMEL SAXENA APRNSIE E 300.00 ANXIETY 05/10/2008 KATLYN SAXENA APRN E 682.9 CELLULITIS AND ABSCESS OF UNSPECIFIED SITES 05/10/2008 JAMEL SAXENA APRNSIE E 300.00 ANXIETY 05/10/2008 JAMEL SAXENA APRNSIE E 682.9 CELLULITIS AND ABSCESS OF UNSPECIFIED SITES 05/10/2008 REAL DO SHAYNA K 300.00 ANXIETY 05/10/2008 REAL DO SHAYNA K 682.9 CELLULITIS AND ABSCESS OF UNSPECIFIED SITES 05/10/2008 HEMANTH HARRINGTON KATLYN E 300.00 ANXIETY 05/10/2008 HEMANTH HARRINGTON, KATLYN E 682.9 CELLULITIS AND ABSCESS OF UNSPECIFIED SITES 05/10/2008 REAL DO, SHAYNA K 300.00 ANXIETY 05/10/2008 REAL DO, SHAYNA K 682.9 CELLULITIS AND ABSCESS OF UNSPECIFIED SITES 05/10/2008 BRITT HINES, ROSSY N 300.00 ANXIETY 05/10/2008 BRITT HINES, ROSSY N 682.9 CELLULITIS AND ABSCESS OF UNSPECIFIED SITES 05/10/2008 JAMEL SAXENA APRNSIE E 300.00 ANXIETY 05/10/2008 HEMANTH HARRINGTON, KATLYN E 682.9 CELLULITIS AND ABSCESS OF UNSPECIFIED SITES 05/12/2008 RUBIN HINES, AIMEE V58.31 WOUND DRESSING 05/12/2008 RUBIN HINES, AIMEE V58.31 WOUND DRESSING 05/12/2008 V58.31 WOUND DRESSING 05/12/2008 RUBIN HINES, AIMEE V58.31 WOUND DRESSING 05/12/2008 V58.31 WOUND DRESSING 05/12/2008 V58.31 WOUND DRESSING 05/12/2008 V58.31 WOUND DRESSING 05/12/2008 V58.31 WOUND DRESSING 05/12/2008 V58.31 WOUND DRESSING 05/12/2008 V58.31 WOUND DRESSING 05/12/2008 V58.31 WOUND DRESSING 05/12/2008 REAL DO, SHAYNA K V58.31 WOUND DRESSING 05/12/2008 REAL DO, SHAYNA K V58.31 WOUND DRESSING 05/12/2008 REAL DO, SHAYNA K V58.31 WOUND DRESSING 05/12/2008 REAL DO, SHAYNA K V58.31 WOUND DRESSING 05/12/2008 REAL DO, SHAYNA K V58.31 WOUND DRESSING 05/12/2008 REAL DO, SHAYNA K V58.31 WOUND DRESSING 05/12/2008 REAL DO, SHAYNA K V58.31 WOUND DRESSING 05/12/2008 REAL DO, SHAYNA K V58.31 WOUND DRESSING 05/12/2008 REAL DO, SHAYNA K V58.31 WOUND DRESSING 05/12/2008 REAL DO, SHAYNA K V58.31 WOUND DRESSING 05/12/2008 SOHAN HINES, JAY Overton V58.31 WOUND DRESSING 05/12/2008 REAL DO, SHAYNA K V58.31 WOUND DRESSING 05/12/2008 SOHAN HINES, JAY Overton V58.31 WOUND DRESSING 05/12/2008 REAL DO, SHAYNA K V58.31 WOUND DRESSING 05/12/2008 REAL DO, SHAYNA K V58.31 WOUND DRESSING 05/12/2008 REAL DO, SHAYNA K V58.31 WOUND DRESSING 05/12/2008 DOMENIC HINES, JETHRO V58.31 WOUND DRESSING 05/12/2008 JETHRO SHETH MD V58.31 WOUND DRESSING 05/12/2008 REAL DO, SHAYNA K V58.31 WOUND DRESSING 05/12/2008 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 KATLYN E V58.31 WOUND DRESSING 05/12/2008 HELCRISTAL 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JAMEL CarlSIE E V58.31 WOUND DRESSING 05/12/2008 REAL DO, SHAYNA K V58.31 WOUND DRESSING 05/12/2008 [facility] 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JAMEL CarlSIE E V58.31 WOUND DRESSING 05/12/2008 REAL DO, SHAYNA K V58.31 WOUND DRESSING 05/12/2008 BRITT HINES, ROSSY Carl V58.31 WOUND DRESSING 05/12/2008 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JAMEL CarlSIE E V58.31 WOUND DRESSING 05/14/2008 AIMEE CONKLIN MD 250.02 DIABETES MELLITUS POORLY CONTROLLED 05/14/2008 AIMEE CONKLIN MD 278.01 OBESITY MORBID 05/14/2008 AIMEE CONKLIN MD 250.02 DIABETES MELLITUS POORLY CONTROLLED 05/14/2008 AIMEE CONKLIN MD 278.01 OBESITY MORBID 05/14/2008 250.02 DIABETES MELLITUS POORLY CONTROLLED 05/14/2008 278.01 OBESITY MORBID 05/14/2008 AIMEE CONKLIN MD 250.02 DIABETES MELLITUS POORLY CONTROLLED 05/14/2008 AIMEE CONKLIN MD 278.01 OBESITY MORBID 05/14/2008 250.02 DIABETES MELLITUS POORLY CONTROLLED 05/14/2008 278.01 OBESITY MORBID 05/14/2008 250.02 DIABETES MELLITUS POORLY CONTROLLED 05/14/2008 278.01 OBESITY MORBID 05/14/2008 250.02 DIABETES MELLITUS POORLY CONTROLLED 05/14/2008 278.01 OBESITY MORBID 05/14/2008 250.02 DIABETES MELLITUS POORLY CONTROLLED 05/14/2008 278.01 OBESITY MORBID 05/14/2008 250.02 DIABETES MELLITUS POORLY CONTROLLED 05/14/2008 278.01 OBESITY MORBID 05/14/2008 250.02 DIABETES MELLITUS POORLY CONTROLLED 05/14/2008 278.01 OBESITY MORBID 05/14/2008 250.02 DIABETES MELLITUS POORLY CONTROLLED 05/14/2008 278.01 OBESITY MORBID 05/14/2008 REAL DO, SHAYNA K 250.02 DIABETES MELLITUS POORLY CONTROLLED 05/14/2008 REAL DO, SHAYNA K 278.01 OBESITY MORBID 05/14/2008 REAL DO, SHAYNA K 250.02 DIABETES MELLITUS POORLY CONTROLLED 05/14/2008 REAL DO, SHAYNA K 278.01 OBESITY MORBID 05/14/2008 REAL DO, SHAYNA K 250.02 DIABETES MELLITUS POORLY CONTROLLED 05/14/2008 REAL DO, SHAYNA K 278.01 OBESITY MORBID 05/14/2008 REAL DO, SHAYNA K 250.02 DIABETES MELLITUS POORLY CONTROLLED 05/14/2008 REAL DO, SHAYNA K 278.01 OBESITY MORBID 05/14/2008 REAL DO, SHAYNA K 250.02 DIABETES MELLITUS POORLY CONTROLLED 05/14/2008 REAL DO, SHAYNA K 278.01 OBESITY MORBID 05/14/2008 REAL DO, SHAYNA K 250.02 DIABETES MELLITUS POORLY CONTROLLED 05/14/2008 REAL DO, SHAYNA K 278.01 OBESITY MORBID 05/14/2008 REAL DO, SHAYNA K 250.02 DIABETES MELLITUS POORLY CONTROLLED 05/14/2008 REAL DO, SHAYNA K 278.01 OBESITY MORBID 05/14/2008 REAL DO, SHAYNA K 250.02 DIABETES MELLITUS POORLY CONTROLLED 05/14/2008 REAL DO, SHAYNA K 278.01 OBESITY MORBID 05/14/2008 REAL DO, SHAYNA K 250.02 DIABETES MELLITUS POORLY CONTROLLED 05/14/2008 REAL DO, SHAYNA K 278.01 OBESITY MORBID 05/14/2008 REAL DO, SHAYNA K 250.02 DIABETES MELLITUS POORLY CONTROLLED 05/14/2008 REAL DO, SHAYNA K 278.01 OBESITY MORBID 05/14/2008 SOHAN HINES, JAY M 250.02 DIABETES MELLITUS POORLY CONTROLLED 05/14/2008 SOHAN HINES, JAY M 278.01 OBESITY MORBID 05/14/2008 REAL DO, SHAYNA K 250.02 DIABETES MELLITUS POORLY CONTROLLED 05/14/2008 REAL DO, SHAYNA K 278.01 OBESITY MORBID 05/14/2008 SOHAN HINES, JAY M 250.02 DIABETES MELLITUS POORLY CONTROLLED 05/14/2008 SOHAN HINES, JAY M 278.01 OBESITY MORBID 05/14/2008 REAL DO, SHAYNA K 250.02 DIABETES MELLITUS POORLY CONTROLLED 05/14/2008 REAL DO, SHAYNA K 278.01 OBESITY MORBID 05/14/2008 REAL DO, SHAYNA K 250.02 DIABETES MELLITUS POORLY CONTROLLED 05/14/2008 REAL DO, SHAYNA K 278.01 OBESITY MORBID 05/14/2008 REAL DO, SHAYNA K 250.02 DIABETES MELLITUS POORLY CONTROLLED 05/14/2008 REAL DO, SHAYNA K 278.01 OBESITY MORBID 05/14/2008 JETHRO SHETH MD 250.02 DIABETES MELLITUS POORLY CONTROLLED 05/14/2008 JETHRO SHETH MD 278.01 OBESITY MORBID 05/14/2008 JETHRO SHETH MD 250.02 DIABETES MELLITUS POORLY CONTROLLED 05/14/2008 JETHRO SHETH MD 278.01 OBESITY MORBID 05/14/2008 REAL DO, SHAYNA K 250.02 DIABETES MELLITUS POORLY CONTROLLED 05/14/2008 REAL DO, SHAYNA K 278.01 OBESITY MORBID 05/14/2008 HEMANTH HARRINGTON KATLYN E 250.02 DIABETES MELLITUS POORLY CONTROLLED 05/14/2008 HEMANTH HARRINGTON KATLYN E 278.01 OBESITY MORBID 05/14/2008 HEMANTH HARRINGTON KATLYN E 250.02 DIABETES MELLITUS POORLY CONTROLLED 05/14/2008 HEMANTH HARRINGTON KATLYN E 278.01 OBESITY MORBID 05/14/2008 REAL DO, SHAYNA K 250.02 DIABETES MELLITUS POORLY CONTROLLED 05/14/2008 REAL DO, SHAYNA K 278.01 OBESITY MORBID 05/14/2008 HEMANTH HARRINGTON KATLYN E 250.02 DIABETES MELLITUS POORLY CONTROLLED 05/14/2008 HEMANTH HARRINGTON KATLYN E 278.01 OBESITY MORBID 05/14/2008 REAL DO, SHAYNA K 250.02 DIABETES MELLITUS POORLY CONTROLLED 05/14/2008 REAL DO, SHAYNA K 278.01 OBESITY MORBID 05/14/2008 ROSSY DE LA TORRE MD N 250.02 DIABETES MELLITUS POORLY CONTROLLED 05/14/2008 ROSSY DE LA TORRE MD N 278.01 OBESITY MORBID 05/14/2008 HEMANTH HARRINGTON KATLYN E 250.02 DIABETES MELLITUS POORLY CONTROLLED 05/14/2008 HEMANTH HARRINGTON KATLYN E 278.01 OBESITY MORBID 05/15/2008 RUBIN HINES, AIMEE 079.99 VIRAL SYNDROME 05/15/2008 RUBIN HINES, AIMEE 729.5 PAIN IN LIMB 05/15/2008 AIMEE CONKLIN MD 079.99 VIRAL SYNDROME 05/15/2008 AIMEE CONKLIN MD 729.5 PAIN IN LIMB 05/15/2008 079.99 VIRAL SYNDROME 05/15/2008 729.5 PAIN IN LIMB 05/15/2008 AIMEE CONKLIN MD 079.99 VIRAL SYNDROME 05/15/2008 AIMEE CONKLIN MD 729.5 PAIN IN LIMB 05/15/2008 079.99 VIRAL SYNDROME 05/15/2008 729.5 PAIN IN LIMB 05/15/2008 079.99 VIRAL SYNDROME 05/15/2008 729.5 PAIN IN LIMB 05/15/2008 079.99 VIRAL SYNDROME 05/15/2008 729.5 PAIN IN LIMB 05/15/2008 079.99 VIRAL SYNDROME 05/15/2008 729.5 PAIN IN LIMB 05/15/2008 079.99 VIRAL SYNDROME 05/15/2008 729.5 PAIN IN LIMB 05/15/2008 079.99 VIRAL SYNDROME 05/15/2008 729.5 PAIN IN LIMB 05/15/2008 079.99 VIRAL SYNDROME 05/15/2008 729.5 PAIN IN LIMB 05/15/2008 REAL DO, SHAYNA K 079.99 VIRAL SYNDROME 05/15/2008 REAL DO, SHAYNA K 729.5 PAIN IN LIMB 05/15/2008 REAL DO, SHAYNA K 079.99 VIRAL SYNDROME 05/15/2008 REAL DO, SHAYNA K 729.5 PAIN IN LIMB 05/15/2008 REAL DO, SHAYNA K 079.99 VIRAL SYNDROME 05/15/2008 REAL DO, SHAYNA K 729.5 PAIN IN LIMB 05/15/2008 REAL DO, SHAYNA K 079.99 VIRAL SYNDROME 05/15/2008 REAL DO, SHAYNA K 729.5 PAIN IN LIMB 05/15/2008 REAL DO, SHAYNA K 079.99 VIRAL SYNDROME 05/15/2008 REAL DO, SHAYNA K 729.5 PAIN IN LIMB 05/15/2008 REAL DO, SHAYNA K 079.99 VIRAL SYNDROME 05/15/2008 REAL DO, SHAYNA K 729.5 PAIN IN LIMB 05/15/2008 REAL DO, SHAYNA K 079.99 VIRAL SYNDROME 05/15/2008 REAL DO, SHAYNA K 729.5 PAIN IN LIMB 05/15/2008 REAL DO, SHAYNA K 079.99 VIRAL SYNDROME 05/15/2008 REAL DO, SHAYNA K 729.5 PAIN IN LIMB 05/15/2008 REAL DO, SHAYNA K 079.99 VIRAL SYNDROME 05/15/2008 REAL DO, SHAYNA K 729.5 PAIN IN LIMB 05/15/2008 REAL DO, SHAYNA K 079.99 VIRAL SYNDROME 05/15/2008 REAL DO, SHAYNA K 729.5 PAIN IN LIMB 05/15/2008 SOHAN HINES, JAY [place] 079.99 VIRAL SYNDROME 05/15/2008 SOHAN HINES, JAY [place] 729.5 PAIN IN LIMB 05/15/2008 REAL DO, SHAYNA K 079.99 VIRAL SYNDROME 05/15/2008 REAL DO, SHAYNA K 729.5 PAIN IN LIMB 05/15/2008 SOHAN HINES, JAY [place] 079.99 VIRAL SYNDROME 05/15/2008 SOHAN HINES, JAY [place] 729.5 PAIN IN LIMB 05/15/2008 REAL DO, SHAYNA K 079.99 VIRAL SYNDROME 05/15/2008 REAL DO, SHAYNA K 729.5 PAIN IN LIMB 05/15/2008 REAL DO, SHAYNA K 079.99 VIRAL SYNDROME 05/15/2008 REAL DO, SHAYNA K 729.5 PAIN IN LIMB 05/15/2008 REAL DO, SHAYNA K 079.99 VIRAL SYNDROME 05/15/2008 REAL DO, SHAYNA K 729.5 PAIN IN LIMB 05/15/2008 JETHRO SHETH MD 079.99 VIRAL SYNDROME 05/15/2008 JETHRO SHETH MD 729.5 PAIN IN LIMB 05/15/2008 JETHRO SHETH MD 079.99 VIRAL SYNDROME 05/15/2008 JETHRO SHETH MD 729.5 PAIN IN LIMB 05/15/2008 REAL DO, SHAYNA K 079.99 VIRAL SYNDROME 05/15/2008 REAL DO, SHAYNA K 729.5 PAIN IN LIMB 05/15/2008 KATLYN SAXENA APRN E 079.99 VIRAL SYNDROME 05/15/2008 KATLYN SAXENA APRN E 729.5 PAIN IN LIMB 05/15/2008 JAMEL SAXENA APRNSIE E 079.99 VIRAL SYNDROME 05/15/2008 KATLYN SAXENA APRN E 729.5 PAIN IN LIMB 05/15/2008 REAL DO, SHAYNA K 079.99 VIRAL SYNDROME 05/15/2008 JAMEL REAL DOA K 729.5 PAIN IN LIMB 05/15/2008 HELLCRISTAL HARRINGTON KATLYN E 079.99 VIRAL SYNDROME 05/15/2008 HELJAMEL MENDEZ APRNSIE E 729.5 PAIN IN LIMB 05/15/2008 JAMEL REAL DOA K 079.99 VIRAL SYNDROME 05/15/2008 JAMEL REAL DOA K 729.5 PAIN IN LIMB 05/15/2008 ROSSY DE LA TORRE MD N 079.99 VIRAL SYNDROME 05/15/2008 ROSSY DE LA TORRE MD N 729.5 PAIN IN LIMB 05/15/2008 KATLYN SAXENA APRN E 079.99 VIRAL SYNDROME 05/15/2008 KATLYN SAXENA APRN E 729.5 PAIN IN LIMB 05/17/2008 AIMEE CONKLIN MD 616.10 VAGINITIS AND VULVOVAGINITIS UNSPECIFIED 05/17/2008 AIMEE CONKLIN MD 616.10 VAGINITIS AND VULVOVAGINITIS UNSPECIFIED 05/17/2008 616.10 VAGINITIS AND VULVOVAGINITIS UNSPECIFIED 05/17/2008 AIMEE CONKLIN MD 616.10 VAGINITIS AND VULVOVAGINITIS UNSPECIFIED 05/17/2008 616.10 VAGINITIS AND VULVOVAGINITIS UNSPECIFIED 05/17/2008 616.10 VAGINITIS AND VULVOVAGINITIS UNSPECIFIED 05/17/2008 616.10 VAGINITIS AND VULVOVAGINITIS UNSPECIFIED 05/17/2008 616.10 VAGINITIS AND VULVOVAGINITIS UNSPECIFIED 05/17/2008 616.10 VAGINITIS AND VULVOVAGINITIS UNSPECIFIED 05/17/2008 616.10 VAGINITIS AND VULVOVAGINITIS UNSPECIFIED 05/17/2008 616.10 VAGINITIS AND VULVOVAGINITIS UNSPECIFIED 05/17/2008 SHAYNA REAL DO K 616.10 VAGINITIS AND VULVOVAGINITIS UNSPECIFIED 05/17/2008 SHAYNA REAL DO K 616.10 VAGINITIS AND VULVOVAGINITIS UNSPECIFIED 05/17/2008 SHAYNA REAL DO K 616.10 VAGINITIS AND VULVOVAGINITIS UNSPECIFIED 05/17/2008 SHAYNA REAL DO K 616.10 VAGINITIS AND VULVOVAGINITIS UNSPECIFIED 05/17/2008 JAMEL REAL DOA K 616.10 VAGINITIS AND VULVOVAGINITIS UNSPECIFIED 05/17/2008 JAMEL REAL DOA K 616.10 VAGINITIS AND VULVOVAGINITIS UNSPECIFIED 05/17/2008 JAMEL REAL DOA K 616.10 VAGINITIS AND VULVOVAGINITIS UNSPECIFIED 05/17/2008 JAMEL REAL DOA K 616.10 VAGINITIS AND VULVOVAGINITIS UNSPECIFIED 05/17/2008 JAMEL REAL DOA K 616.10 VAGINITIS AND VULVOVAGINITIS UNSPECIFIED 05/17/2008 JAMEL REAL DOA K 616.10 VAGINITIS AND VULVOVAGINITIS UNSPECIFIED 05/17/2008 SOHAN HINES, JAY Overton 616.10 VAGINITIS AND VULVOVAGINITIS UNSPECIFIED 05/17/2008 SHAYNA REAL DO K 616.10 VAGINITIS AND VULVOVAGINITIS UNSPECIFIED 05/17/2008 SOHAN HINES, JAY Overton 616.10 VAGINITIS AND VULVOVAGINITIS UNSPECIFIED 05/17/2008 JAMEL REAL DOA K 616.10 VAGINITIS AND VULVOVAGINITIS UNSPECIFIED 05/17/2008 SHAYNA REAL DO K 616.10 VAGINITIS AND VULVOVAGINITIS UNSPECIFIED 05/17/2008 SHAYNA REAL DO K 616.10 VAGINITIS AND VULVOVAGINITIS UNSPECIFIED 05/17/2008 JETHRO SHETH MD 616.10 VAGINITIS AND VULVOVAGINITIS UNSPECIFIED 05/17/2008 JETHRO SHETH MD 616.10 VAGINITIS AND VULVOVAGINITIS UNSPECIFIED 05/17/2008 SHAYNA REAL DO K 616.10 VAGINITIS AND VULVOVAGINITIS UNSPECIFIED 05/17/2008 KATLYN SAXENA APRN 616.10 VAGINITIS AND VULVOVAGINITIS UNSPECIFIED 05/17/2008 KATLYN SAXENA APRN 616.10 VAGINITIS AND VULVOVAGINITIS UNSPECIFIED 05/17/2008 SHAYNA REAL DO K 616.10 VAGINITIS AND VULVOVAGINITIS UNSPECIFIED 05/17/2008 HEMANTH HARRINGTON, KATLYN E 616.10 VAGINITIS AND VULVOVAGINITIS UNSPECIFIED 05/17/2008 SHAYNA REAL DO K 616.10 VAGINITIS AND VULVOVAGINITIS UNSPECIFIED 05/17/2008 ROSSY DE LA TORRE MD 616.10 VAGINITIS AND VULVOVAGINITIS UNSPECIFIED 05/17/2008 HEMANTH HARRINGTON, KATLYN E 616.10 VAGINITIS AND VULVOVAGINITIS UNSPECIFIED 05/25/2008 AIMEE CONKLIN MD 788.30 INCONTINENCE ENURESOS/URINARY 05/25/2008 AIMEE CONKLIN MD 788.30 INCONTINENCE ENURESOS/URINARY 05/25/2008 788.30 INCONTINENCE ENURESOS/URINARY 05/25/2008 AIMEE CONKLIN MD 788.30 INCONTINENCE ENURESOS/URINARY 05/25/2008 788.30 INCONTINENCE ENURESOS/URINARY 05/25/2008 788.30 INCONTINENCE ENURESOS/URINARY 05/25/2008 788.30 INCONTINENCE ENURESOS/URINARY 05/25/2008 788.30 INCONTINENCE ENURESOS/URINARY 05/25/2008 788.30 INCONTINENCE ENURESOS/URINARY 05/25/2008 788.30 INCONTINENCE ENURESOS/URINARY 05/25/2008 788.30 INCONTINENCE ENURESOS/URINARY 05/25/2008 JAMEL REAL DOA K 788.30 INCONTINENCE ENURESOS/URINARY 05/25/2008 ADDIE NOONAN, SHAYNA K 788.30 INCONTINENCE ENURESOS/URINARY 05/25/2008 ADDIE NOONAN SHAYNA K 788.30 INCONTINENCE ENURESOS/URINARY 05/25/2008 ADDIE NOONAN SHAYNA K 788.30 INCONTINENCE ENURESOS/URINARY 05/25/2008 REAL , SHAYNA K 788.30 INCONTINENCE ENURESOS/URINARY 05/25/2008 REAL DO SHAYNA K 788.30 INCONTINENCE ENURESOS/URINARY 05/25/2008 ADDIE NOONAN SHAYNA K 788.30 INCONTINENCE ENURESOS/URINARY 05/25/2008 ADDIE NOONAN SHAYNA K 788.30 INCONTINENCE ENURESOS/URINARY 05/25/2008 ADDIE NOONAN SHAYNA K 788.30 INCONTINENCE ENURESOS/URINARY 05/25/2008 ADDIE NOONAN SHAYNA K 788.30 INCONTINENCE ENURESOS/URINARY 05/25/2008 SOHAN HINES, JAY Overton 788.30 INCONTINENCE ENURESOS/URINARY 05/25/2008 ADDIE NOONAN SHAYNA K 788.30 INCONTINENCE ENURESOS/URINARY 05/25/2008 SOHAN HIENS, JAY Overton 788.30 INCONTINENCE ENURESOS/URINARY 05/25/2008 ADDIE NOONAN, SHAYNA K 788.30 INCONTINENCE ENURESOS/URINARY 05/25/2008 ADDIE NOONAN, SHAYNA K 788.30 INCONTINENCE ENURESOS/URINARY 05/25/2008 REAL , SHAYNA K 788.30 INCONTINENCE ENURESOS/URINARY 05/25/2008 JETHRO SHETH MD 788.30 INCONTINENCE ENURESOS/URINARY 05/25/2008 JETHRO SHETH MD 788.30 INCONTINENCE ENURESOS/URINARY 05/25/2008 ADDIE NOONAN SHAYNA K 788.30 INCONTINENCE ENURESOS/URINARY 05/25/2008 HEMANTH HARRINGTON KATLYN E 788.30 INCONTINENCE ENURESOS/URINARY 05/25/2008 JAMEL SAXENA APRNSIE E 788.30 INCONTINENCE ENURESOS/URINARY 05/25/2008 ADDIE NOONAN SHAYNA K 788.30 INCONTINENCE ENURESOS/URINARY 05/25/2008 JAMEL SAXENA APRNSIE E 788.30 INCONTINENCE ENURESOS/URINARY 05/25/2008 ADDIE NOONANJAMELA K 788.30 INCONTINENCE ENURESOS/URINARY 05/25/2008 BRITT HINES, ROSSY N 788.30 INCONTINENCE ENURESOS/URINARY 05/25/2008 HEMANTH HARRINGTON KATLYN E 788.30 INCONTINENCE ENURESOS/URINARY 07/16/2008 AIMEE CONKLIN MD 272.0 HYPERLIPIDEMIA SWETHA CLASSIFICATION TYPE IIA 07/16/2008 AIMEE CONKLIN MD 307.40 INSOMNIA 07/16/2008 AIMEE CONKLIN MD 272.0 HYPERLIPIDEMIA SWETHA CLASSIFICATION TYPE IIA 07/16/2008 AIMEE CONKLIN MD 307.40 INSOMNIA 07/16/2008 272.0 HYPERLIPIDEMIA SWETHA CLASSIFICATION TYPE IIA 07/16/2008 307.40 INSOMNIA 07/16/2008 AIMEE CONKLIN MD 272.0 HYPERLIPIDEMIA SWETHA CLASSIFICATION TYPE IIA 07/16/2008 AIMEE CONKLIN MD 307.40 INSOMNIA 07/16/2008 272.0 HYPERLIPIDEMIA SWETHA CLASSIFICATION TYPE IIA 07/16/2008 307.40 INSOMNIA 07/16/2008 272.0 HYPERLIPIDEMIA SWETHA CLASSIFICATION TYPE IIA 07/16/2008 307.40 INSOMNIA 07/16/2008 272.0 HYPERLIPIDEMIA SWETHA CLASSIFICATION TYPE IIA 07/16/2008 307.40 INSOMNIA 07/16/2008 272.0 HYPERLIPIDEMIA SWETHA CLASSIFICATION TYPE IIA 07/16/2008 307.40 INSOMNIA 07/16/2008 272.0 HYPERLIPIDEMIA SWETHA CLASSIFICATION TYPE IIA 07/16/2008 307.40 INSOMNIA 07/16/2008 272.0 HYPERLIPIDEMIA SWETHA CLASSIFICATION TYPE IIA 07/16/2008 307.40 INSOMNIA 07/16/2008 272.0 HYPERLIPIDEMIA SWETHA CLASSIFICATION TYPE IIA 07/16/2008 307.40 INSOMNIA 07/16/2008 REAL DO, SHAYNA K 272.0 HYPERLIPIDEMIA SWETHA CLASSIFICATION TYPE IIA 07/16/2008 REAL DO, SHAYNA K 307.40 INSOMNIA 07/16/2008 REAL DO, SHAYNA K 272.0 HYPERLIPIDEMIA SWETHA CLASSIFICATION TYPE IIA 07/16/2008 REAL DO, SHAYNA K 307.40 INSOMNIA 07/16/2008 REAL DO, SHAYNA K 272.0 HYPERLIPIDEMIA SWETHA CLASSIFICATION TYPE IIA 07/16/2008 REAL DO, SHAYNA K 307.40 INSOMNIA 07/16/2008 REAL DO, SHAYNA K 272.0 HYPERLIPIDEMIA SWETHA CLASSIFICATION TYPE IIA 07/16/2008 REAL DO, SHAYNA K 307.40 INSOMNIA 07/16/2008 REAL DO, SHAYNA K 272.0 HYPERLIPIDEMIA SWETHA CLASSIFICATION TYPE IIA 07/16/2008 REAL DO, SHAYNA K 307.40 INSOMNIA 07/16/2008 REAL DO, SHAYNA K 272.0 HYPERLIPIDEMIA SWETHA CLASSIFICATION TYPE IIA 07/16/2008 REAL DO, SHAYNA K 307.40 INSOMNIA 07/16/2008 REAL DO, SHAYNA K 272.0 HYPERLIPIDEMIA SWETHA CLASSIFICATION TYPE IIA 07/16/2008 REAL DO, SHAYNA K 307.40 INSOMNIA 07/16/2008 REAL DO, SHAYNA K 272.0 HYPERLIPIDEMIA SWETHA CLASSIFICATION TYPE IIA 07/16/2008 REAL DO, SHAYNA K 307.40 INSOMNIA 07/16/2008 REAL DO, SHAYNA K 272.0 HYPERLIPIDEMIA SWETHA CLASSIFICATION TYPE IIA 07/16/2008 REAL DO, SHAYNA K 307.40 INSOMNIA 07/16/2008 REAL DO, SHAYNA K 272.0 HYPERLIPIDEMIA SWETHA CLASSIFICATION TYPE IIA 07/16/2008 REAL DO, SHAYNA K 307.40 INSOMNIA 07/16/2008 SOHAN HINES, JAY Overton 272.0 HYPERLIPIDEMIA SWETHA CLASSIFICATION TYPE IIA 07/16/2008 SOHAN HINES, JAY Overton 307.40 INSOMNIA 07/16/2008 REAL DO, SHAYNA K 272.0 HYPERLIPIDEMIA SWETHA CLASSIFICATION TYPE IIA 07/16/2008 REAL DO, SHAYNA K 307.40 INSOMNIA 07/16/2008 SOHAN HINES, JAY Overton 272.0 HYPERLIPIDEMIA SWETHA CLASSIFICATION TYPE IIA 07/16/2008 SOHAN HINES, JAY Overton 307.40 INSOMNIA 07/16/2008 REAL DO, SHAYNA K 272.0 HYPERLIPIDEMIA SWETHA CLASSIFICATION TYPE IIA 07/16/2008 REAL DO, SHAYNA K 307.40 INSOMNIA 07/16/2008 REAL DO, SHAYNA K 272.0 HYPERLIPIDEMIA SWETHA CLASSIFICATION TYPE IIA 07/16/2008 REAL DO, SHAYNA K 307.40 INSOMNIA 07/16/2008 REAL DO, SHAYNA K 272.0 HYPERLIPIDEMIA SWETHA CLASSIFICATION TYPE IIA 07/16/2008 REAL DO, SHAYNA K 307.40 INSOMNIA 07/16/2008 JETHRO SHETH MD 272.0 HYPERLIPIDEMIA SWETHA CLASSIFICATION TYPE IIA 07/16/2008 JETHRO SHETH MD 307.40 INSOMNIA 07/16/2008 JETHRO SHETH MD 272.0 HYPERLIPIDEMIA SWETHA CLASSIFICATION TYPE IIA 07/16/2008 JETHRO SHETH MD 307.40 INSOMNIA 07/16/2008 REAL DO, SHAYNA K 272.0 HYPERLIPIDEMIA SWETHA CLASSIFICATION TYPE IIA 07/16/2008 REAL DO, SHAYNA K 307.40 INSOMNIA 07/16/2008 KATLYN SAXENA APRN E 272.0 HYPERLIPIDEMIA SWETHA CLASSIFICATION TYPE IIA 07/16/2008 KATLYN SAXENA APRN E 307.40 INSOMNIA 07/16/2008 JAMEL SAXENA APRNSIE E 272.0 HYPERLIPIDEMIA SWETHA CLASSIFICATION TYPE IIA 07/16/2008 JAMEL SAXENA APRNSIE E 307.40 INSOMNIA 07/16/2008 REAL DO, SHAYNA K 272.0 HYPERLIPIDEMIA SWETHA CLASSIFICATION TYPE IIA 07/16/2008 REAL DO, SHAYNA K 307.40 INSOMNIA 07/16/2008 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 E 272.0 HYPERLIPIDEMIA SWETHA CLASSIFICATION TYPE IIA 07/16/2008 [facility] 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, KATLYN E 307.40 INSOMNIA 07/16/2008 REAL DO, SHAYNA K 272.0 HYPERLIPIDEMIA SWETHA CLASSIFICATION TYPE IIA 07/16/2008 REAL DO, SHAYNA K 307.40 INSOMNIA 07/16/2008 ROSSY DE LA TORRE MD N 272.0 HYPERLIPIDEMIA SWETHA CLASSIFICATION TYPE IIA 07/16/2008 ROSSY DE LA TORRE MD N 307.40 INSOMNIA 07/16/2008 [facility] KATLYN HARRINGTON E 272.0 HYPERLIPIDEMIA SWETHA CLASSIFICATION TYPE IIA 07/16/2008 [facility] LEN, KATLYN E 307.40 INSOMNIA 10/15/2008 AIMEE CONKLIN MD 278.00 OBESITY 10/15/2008 AIMEE CONKLIN MD 401.1 ESSENTIAL HYPERTENSION BENIGN 10/15/2008 AIMEE CONKLIN MD 278.00 OBESITY 10/15/2008 AIMEE CONKLIN MD 401.1 ESSENTIAL HYPERTENSION BENIGN 10/15/2008 278.00 OBESITY 10/15/2008 401.1 ESSENTIAL HYPERTENSION BENIGN 10/15/2008 AIMEE CONKLIN MD 278.00 OBESITY 10/15/2008 AIMEE CONKLIN MD 401.1 ESSENTIAL HYPERTENSION BENIGN 10/15/2008 278.00 OBESITY 10/15/2008 401.1 ESSENTIAL HYPERTENSION BENIGN 10/15/2008 278.00 OBESITY 10/15/2008 401.1 ESSENTIAL HYPERTENSION BENIGN 10/15/2008 278.00 OBESITY 10/15/2008 401.1 ESSENTIAL HYPERTENSION BENIGN 10/15/2008 278.00 OBESITY 10/15/2008 401.1 ESSENTIAL HYPERTENSION BENIGN 10/15/2008 278.00 OBESITY 10/15/2008 401.1 ESSENTIAL HYPERTENSION BENIGN 10/15/2008 278.00 OBESITY 10/15/2008 401.1 ESSENTIAL HYPERTENSION BENIGN 10/15/2008 278.00 OBESITY 10/15/2008 401.1 ESSENTIAL HYPERTENSION BENIGN 10/15/2008 REAL DO, SHAYNA K 278.00 OBESITY 10/15/2008 REAL DO, SHAYNA K 401.1 ESSENTIAL HYPERTENSION BENIGN 10/15/2008 REAL DO, SHAYNA K 278.00 OBESITY 10/15/2008 REAL DO, SHAYNA K 401.1 ESSENTIAL HYPERTENSION BENIGN 10/15/2008 REAL DO, SHAYNA K 278.00 OBESITY 10/15/2008 REAL DO, SHAYNA K 401.1 ESSENTIAL HYPERTENSION BENIGN 10/15/2008 REAL DO, SHAYNA K 278.00 OBESITY 10/15/2008 REAL DO, SHAYNA K 401.1 ESSENTIAL HYPERTENSION BENIGN 10/15/2008 REAL DO, SHAYNA K 278.00 OBESITY 10/15/2008 REAL DO, SHAYNA K 401.1 ESSENTIAL HYPERTENSION BENIGN 10/15/2008 REAL DO, SHAYNA K 278.00 OBESITY 10/15/2008 REAL DO, SHAYNA K 401.1 ESSENTIAL HYPERTENSION BENIGN 10/15/2008 REAL DO, SHAYNA K 278.00 OBESITY 10/15/2008 REAL DO, SHAYNA K 401.1 ESSENTIAL HYPERTENSION BENIGN 10/15/2008 REAL DO, SHAYNA K 278.00 OBESITY 10/15/2008 REAL DO, SHAYNA K 401.1 ESSENTIAL HYPERTENSION BENIGN 10/15/2008 REAL DO, SHAYNA K 278.00 OBESITY 10/15/2008 REAL DO, SHAYNA K 401.1 ESSENTIAL HYPERTENSION BENIGN 10/15/2008 REAL DO, SHAYNA K 278.00 OBESITY 10/15/2008 REAL DO, SHAYNA K 401.1 ESSENTIAL HYPERTENSION BENIGN 10/15/2008 SOHAN HINES, JAY M 278.00 OBESITY 10/15/2008 SOHAN HINES, JAY M 401.1 ESSENTIAL HYPERTENSION BENIGN 10/15/2008 REAL DO, SHAYNA K 278.00 OBESITY 10/15/2008 REAL DO, SHAYNA K 401.1 ESSENTIAL HYPERTENSION BENIGN 10/15/2008 SOHAN HINES, JAY M 278.00 OBESITY 10/15/2008 SOHAN HINES, JAY M 401.1 ESSENTIAL HYPERTENSION BENIGN 10/15/2008 REAL DO, SHAYNA K 278.00 OBESITY 10/15/2008 REAL DO, SHAYNA K 401.1 ESSENTIAL HYPERTENSION BENIGN 10/15/2008 REAL DO, SHAYNA K 278.00 OBESITY 10/15/2008 REAL DO, SHAYNA K 401.1 ESSENTIAL HYPERTENSION BENIGN 10/15/2008 REAL DO, SHAYNA K 278.00 OBESITY 10/15/2008 REAL DO, SHAYNA K 401.1 ESSENTIAL HYPERTENSION BENIGN 10/15/2008 JETHRO SHETH MD 278.00 OBESITY 10/15/2008 JETHRO SHETH MD 401.1 ESSENTIAL HYPERTENSION BENIGN 10/15/2008 JETHRO SHETH MD 278.00 OBESITY 10/15/2008 JETHRO SHETH MD 401.1 ESSENTIAL HYPERTENSION BENIGN 10/15/2008 REAL DO, SHAYNA K 278.00 OBESITY 10/15/2008 REAL DO, SHAYNA K 401.1 ESSENTIAL HYPERTENSION BENIGN 10/15/2008 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 KATLYN E 278.00 OBESITY 10/15/2008 [facility] 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, KATLYN E 401.1 ESSENTIAL HYPERTENSION BENIGN 10/15/2008 [facility] 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, KATLYN E 278.00 OBESITY 10/15/2008 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 E 401.1 ESSENTIAL HYPERTENSION BENIGN 10/15/2008 REAL DO, SHAYNA K 278.00 OBESITY 10/15/2008 REAL DO, SHAYNA K 401.1 ESSENTIAL HYPERTENSION BENIGN 10/15/[address] 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, KATLYN E 278.00 OBESITY 10/15/2008 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 E 401.1 ESSENTIAL HYPERTENSION BENIGN 10/15/2008 REAL DO, SHAYNA K 278.00 OBESITY 10/15/2008 REAL DO, SHAYNA K 401.1 ESSENTIAL HYPERTENSION BENIGN 10/15/2008 ROSSY DE LA TORRE MD N 278.00 OBESITY 10/15/2008 ROSSY DE LA TORRE MD N 401.1 ESSENTIAL HYPERTENSION BENIGN 10/15/[address] [address] [facility] [address] [facility] KATLYN E 278.00 OBESITY 10/15/2008 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 E 401.1 ESSENTIAL HYPERTENSION BENIGN 04/30/2009 AIMEE CONKLIN MD 251.1 HYPERINSULINISM 04/30/2009 AIMEE CONKLIN MD 270.7 HYPERGLYCEMIA 04/30/2009 AIMEE CONKLIN MD 251.1 HYPERINSULINISM 04/30/2009 AIMEE CONKLIN MD 270.7 HYPERGLYCEMIA 04/30/2009 251.1 HYPERINSULINISM 04/30/2009 270.7 HYPERGLYCEMIA 04/30/2009 AIMEE CONKLIN MD 251.1 HYPERINSULINISM 04/30/2009 AIMEE CONKLIN MD 270.7 HYPERGLYCEMIA 04/30/2009 251.1 HYPERINSULINISM 04/30/2009 270.7 HYPERGLYCEMIA 04/30/2009 251.1 HYPERINSULINISM 04/30/2009 270.7 HYPERGLYCEMIA 04/30/2009 251.1 HYPERINSULINISM 04/30/2009 270.7 HYPERGLYCEMIA 04/30/2009 251.1 HYPERINSULINISM 04/30/2009 270.7 HYPERGLYCEMIA 04/30/2009 251.1 HYPERINSULINISM 04/30/2009 270.7 HYPERGLYCEMIA 04/30/2009 251.1 HYPERINSULINISM 04/30/2009 270.7 HYPERGLYCEMIA 04/30/2009 251.1 HYPERINSULINISM 04/30/2009 270.7 HYPERGLYCEMIA 04/30/2009 REAL DO, SHAYNA K 251.1 HYPERINSULINISM 04/30/2009 REAL DO, SHAYNA K 270.7 HYPERGLYCEMIA 04/30/2009 REAL DO, SHAYNA K 251.1 HYPERINSULINISM 04/30/2009 REAL DO, SHAYNA K 270.7 HYPERGLYCEMIA 04/30/2009 REAL DO, SHAYNA K 251.1 HYPERINSULINISM 04/30/2009 REAL DO, SHAYNA K 270.7 HYPERGLYCEMIA 04/30/2009 REAL DO, SHAYNA K 251.1 HYPERINSULINISM 04/30/2009 REAL DO, SHANYA K 270.7 HYPERGLYCEMIA 04/30/2009 REAL DO, SHAYNA K 251.1 HYPERINSULINISM 04/30/2009 REAL DO, SHAYNA K 270.7 HYPERGLYCEMIA 04/30/2009 REAL DO, SHAYNA K 251.1 HYPERINSULINISM 04/30/2009 REAL DO, SHAYNA K 270.7 HYPERGLYCEMIA 04/30/2009 REAL DO, SHAYNA K 251.1 HYPERINSULINISM 04/30/2009 REAL DO, SHAYNA K 270.7 HYPERGLYCEMIA 04/30/2009 REAL DO, SHAYNA K 251.1 HYPERINSULINISM 04/30/2009 REAL DO, SHAYNA K 270.7 HYPERGLYCEMIA 04/30/2009 REAL DO, SHAYNA K 251.1 HYPERINSULINISM 04/30/2009 REAL DO, SHAYNA K 270.7 HYPERGLYCEMIA 04/30/2009 REAL DO, SHAYNA K 251.1 HYPERINSULINISM 04/30/2009 REAL DO, SHAYNA K 270.7 HYPERGLYCEMIA 04/30/2009 SOHAN HINES, JAY M 251.1 HYPERINSULINISM 04/30/2009 SOHAN HINES, JAY Overton 270.7 HYPERGLYCEMIA 04/30/2009 REAL DO, SHAYNA K 251.1 HYPERINSULINISM 04/30/2009 REAL DO, SHAYNA K 270.7 HYPERGLYCEMIA 04/30/2009 JAY MENDEZ MD 251.1 HYPERINSULINISM 04/30/2009 JAY MENDEZ MD 270.7 HYPERGLYCEMIA 04/30/2009 REAL DO, SHAYNA K 251.1 HYPERINSULINISM 04/30/2009 REAL DO, SHAYNA K 270.7 HYPERGLYCEMIA 04/30/2009 REAL DO, SHAYNA K 251.1 HYPERINSULINISM 04/30/2009 REAL DO, SHAYNA K 270.7 HYPERGLYCEMIA 04/30/2009 REAL DO, SHAYNA K 251.1 HYPERINSULINISM 04/30/2009 REAL DO, SHAYNA K 270.7 HYPERGLYCEMIA 04/30/2009 JETHRO SHETH MD 251.1 HYPERINSULINISM 04/30/2009 JETHRO SHETH MD 270.7 HYPERGLYCEMIA 04/30/2009 JETHRO SHETH MD 251.1 HYPERINSULINISM 04/30/2009 JETHRO SHETH MD 270.7 HYPERGLYCEMIA 04/30/2009 REAL DO, SHAYNA K 251.1 HYPERINSULINISM 04/30/2009 REAL DO, SHAYNA K 270.7 HYPERGLYCEMIA 04/30/2009 [facility] 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, KATLYN E 251.1 HYPERINSULINISM 04/30/2009 [facility] 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, KATLYN E 270.7 HYPERGLYCEMIA 04/30/2009 [facility] 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, KATLYN E 251.1 HYPERINSULINISM 04/30/2009 [facility] 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, KATLYN E 270.7 HYPERGLYCEMIA 04/30/2009 REAL DO, SHAYNA K 251.1 HYPERINSULINISM 04/30/2009 REAL DO, SHAYNA K 270.7 HYPERGLYCEMIA 04/30/2009 [facility] 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, KATLYN E 251.1 HYPERINSULINISM 04/30/2009 [facility] 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, KATLYN E 270.7 HYPERGLYCEMIA 04/30/2009 REAL DO, SHAYNA K 251.1 HYPERINSULINISM 04/30/2009 REAL DO, SHAYNA K 270.7 HYPERGLYCEMIA 04/30/2009 ROSSY DE LA TORRE MD N 251.1 HYPERINSULINISM 04/30/2009 ROSSY DE LA TORRE MD N 270.7 HYPERGLYCEMIA 04/30/2009 [facility] 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, KATLYN E 251.1 HYPERINSULINISM 04/30/2009 [facility] 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, KATLYN E 270.7 HYPERGLYCEMIA 05/28/2009 AIMEE CONKLIN MD 357.9 NEUROPATHY UNSP 05/28/2009 AIMEE CONKLIN MD 357.9 NEUROPATHY UNSP 05/28/2009 357.9 NEUROPATHY UNSP 05/28/2009 AIMEE CONKLIN MD 357.9 NEUROPATHY UNSP 05/28/2009 357.9 NEUROPATHY UNSP 05/28/2009 357.9 NEUROPATHY UNSP 05/28/2009 357.9 NEUROPATHY UNSP 05/28/2009 357.9 NEUROPATHY UNSP 05/28/2009 357.9 NEUROPATHY UNSP 05/28/2009 357.9 NEUROPATHY UNSP 05/28/2009 357.9 NEUROPATHY UNSP 05/28/2009 REAL DO, SHAYNA K 357.9 NEUROPATHY UNSP 05/28/2009 REAL DO, SHAYNA K 357.9 NEUROPATHY UNSP 05/28/2009 REAL DO, SHAYNA K 357.9 NEUROPATHY UNSP 05/28/2009 REAL DO, SHAYNA K 357.9 NEUROPATHY UNSP 05/28/2009 REAL DO, SHAYNA K 357.9 NEUROPATHY UNSP 05/28/2009 REAL DO, SHAYNA K 357.9 NEUROPATHY UNSP 05/28/2009 REAL DO, SHAYNA K 357.9 NEUROPATHY UNSP 05/28/2009 REAL DO, SHAYNA K 357.9 NEUROPATHY UNSP 05/28/2009 REAL DO, SHAYNA K 357.9 NEUROPATHY UNSP 05/28/2009 REAL DO, SHAYNA K 357.9 NEUROPATHY UNSP 05/28/2009 SOHAN HINES, JAY Overton 357.9 NEUROPATHY UNSP 05/28/2009 REAL DO, SHAYNA K 357.9 NEUROPATHY UNSP 05/28/2009 SOHAN HINES, JAY Overton 357.9 NEUROPATHY UNSP 05/28/2009 REAL DO, SHAYNA K 357.9 NEUROPATHY UNSP 05/28/2009 REAL DO, SHAYNA K 357.9 NEUROPATHY UNSP 05/28/2009 REAL DO, SHAYNA K 357.9 NEUROPATHY UNSP 05/28/2009 JETHRO SHETH MD 357.9 NEUROPATHY UNSP 05/28/2009 JETHRO SHETH MD 357.9 NEUROPATHY UNSP 05/28/2009 REAL DO, SHAYNA K 357.9 NEUROPATHY UNSP 05/28/2009 JAMEL SAXENA APRNSIE E 357.9 NEUROPATHY UNSP 05/28/2009 HEMANTH HARRINGTON KATLYN E 357.9 NEUROPATHY UNSP 05/28/2009 REAL DO, SHAYNA K 357.9 NEUROPATHY UNSP 05/28/2009 HELVANESSA HARRINGTON KATLYN E 357.9 NEUROPATHY UNSP 05/28/2009 REAL DO, SHAYNA K 357.9 NEUROPATHY UNSP 05/28/2009 BRITT HINES, ROSSY Carl 357.9 NEUROPATHY UNSP 05/28/2009 HEMANTH HARRINGTON KATLYN E 357.9 NEUROPATHY UNSP 07/02/2009 RUBIN HINES, AIMEE 535.50 GASTRITIS 07/02/2009 RUBIN HINES, AIMEE 724.5 BACKACHE 07/02/2009 RUBIN HINES, AIMEE 535.50 GASTRITIS 07/02/2009 RUBIN HINES, AIMEE 724.5 BACKACHE 07/02/2009 535.50 GASTRITIS 07/02/2009 724.5 BACKACHE 07/02/2009 RUBIN HINES, AIMEE 535.50 GASTRITIS 07/02/2009 RUBIN HINES, AIMEE 724.5 BACKACHE 07/02/2009 535.50 GASTRITIS 07/02/2009 724.5 BACKACHE 07/02/2009 535.50 GASTRITIS 07/02/2009 724.5 BACKACHE 07/02/2009 535.50 GASTRITIS 07/02/2009 724.5 BACKACHE 07/02/2009 535.50 GASTRITIS 07/02/2009 724.5 BACKACHE 07/02/2009 535.50 GASTRITIS 07/02/2009 724.5 BACKACHE 07/02/2009 535.50 GASTRITIS 07/02/2009 724.5 BACKACHE 07/02/2009 535.50 GASTRITIS 07/02/2009 724.5 BACKACHE 07/02/2009 REAL DO, SHAYNA K 535.50 GASTRITIS 07/02/2009 REAL DO, SHAYNA K 724.5 BACKACHE 07/02/2009 REAL DO, SHAYNA K 535.50 GASTRITIS 07/02/2009 REAL DO, SHAYNA K 724.5 BACKACHE 07/02/2009 REAL DO, SHAYNA K 535.50 GASTRITIS 07/02/2009 REAL DO, SHAYNA K 724.5 BACKACHE 07/02/2009 REAL DO, SHAYNA K 535.50 GASTRITIS 07/02/2009 REAL DO, SHAYNA K 724.5 BACKACHE 07/02/2009 REAL DO, SHAYNA K 535.50 GASTRITIS 07/02/2009 REAL DO, SHAYNA K 724.5 BACKACHE 07/02/2009 REAL DO, SHAYNA K 535.50 GASTRITIS 07/02/2009 REAL DO, SHAYNA K 724.5 BACKACHE 07/02/2009 REAL DO, SHAYNA K 535.50 GASTRITIS 07/02/2009 REAL DO, SHAYNA K 724.5 BACKACHE 07/02/2009 REAL DO, SHAYNA K 535.50 GASTRITIS 07/02/2009 REAL DO, SHAYNA K 724.5 BACKACHE 07/02/2009 REAL DO, SHAYNA K 535.50 GASTRITIS 07/02/2009 REAL DO, SHAYNA K 724.5 BACKACHE 07/02/2009 REAL DO, SHAYNA K 535.50 GASTRITIS 07/02/2009 REAL DO, SHAYNA K 724.5 BACKACHE 07/02/2009 SOHAN HINES, JAY Overton 535.50 GASTRITIS 07/02/2009 SOHAN HINES, JAY Overton 724.5 BACKACHE 07/02/2009 REAL DO, SHAYNA K 535.50 GASTRITIS 07/02/2009 REAL DO, SHAYNA K 724.5 BACKACHE 07/02/2009 SOHAN HINES, JAY Overton 535.50 GASTRITIS 07/02/2009 SOHAN HINES, JAY Overton 724.5 BACKACHE 07/02/2009 REAL DO, SHAYNA K 535.50 GASTRITIS 07/02/2009 REAL DO, SHAYNA K 724.5 BACKACHE 07/02/2009 REAL DO, SHAYNA K 535.50 GASTRITIS 07/02/2009 REAL DO, SHAYNA K 724.5 BACKACHE 07/02/2009 REAL DO, SHAYNA K 535.50 GASTRITIS 07/02/2009 REAL DO, SHAYNA K 724.5 BACKACHE 07/02/2009 JETHRO SHETH MD 535.50 GASTRITIS 07/02/2009 JETHRO SHETH MD 724.5 BACKACHE 07/02/2009 JETHRO SHETH MD 535.50 GASTRITIS 07/02/2009 JETHRO SHETH MD 724.5 BACKACHE 07/02/2009 REAL DO, SHAYNA K 535.50 GASTRITIS 07/02/2009 REAL DO, SHAYNA K 724.5 BACKACHE 07/02/2009 JAMEL SAXENA APRNSIE E 535.50 GASTRITIS 07/02/2009 HEMANTH HARRINGTON KATLYN E 724.5 BACKACHE 07/02/2009 JAMEL SAXENA APRNSIE E 535.50 GASTRITIS 07/02/2009 HEMANTH HARRINGTON KATLYN E 724.5 BACKACHE 07/02/2009 REAL DO, SHAYNA K 535.50 GASTRITIS 07/02/2009 REAL DO, SHAYNA K 724.5 BACKACHE 07/02/2009 HEMANTH HARRINGTON KATLYN E 535.50 GASTRITIS 07/02/2009 JAMEL SAXENA APRNSIE E 724.5 BACKACHE 07/02/2009 REAL DO, SHAYNA K 535.50 GASTRITIS 07/02/2009 ADDIE NOONAN, SHAYNA K 724.5 BACKACHE 07/02/2009 ROSSY DE LA TORRE MD N 535.50 GASTRITIS 07/02/2009 ROSSY DE LA TORRE MD 724.5 BACKACHE 07/02/2009 KATLYN SAXENA APRN E 535.50 GASTRITIS 07/02/2009 KATLYN SAXENA APRN E 724.5 BACKACHE 07/25/2009 AIMEE CONKLIN MD 715.16 OSTEOARTHRITIS LOCALIZED PRIMARY - KNEE RIGHT 07/25/2009 AIMEE CONKLIN MD 715.16 OSTEOARTHRITIS LOCALIZED PRIMARY - KNEE RIGHT 07/25/2009 715.16 OSTEOARTHRITIS LOCALIZED PRIMARY - KNEE RIGHT 07/25/2009 AIMEE CONKLIN MD 715.16 OSTEOARTHRITIS LOCALIZED PRIMARY - KNEE RIGHT 07/25/2009 715.16 OSTEOARTHRITIS LOCALIZED PRIMARY - KNEE RIGHT 07/25/2009 715.16 OSTEOARTHRITIS LOCALIZED PRIMARY - KNEE RIGHT 07/25/2009 715.16 OSTEOARTHRITIS LOCALIZED PRIMARY - KNEE RIGHT 07/25/2009 715.16 OSTEOARTHRITIS LOCALIZED PRIMARY - KNEE RIGHT 07/25/2009 715.16 OSTEOARTHRITIS LOCALIZED PRIMARY - KNEE RIGHT 07/25/2009 715.16 OSTEOARTHRITIS LOCALIZED PRIMARY - KNEE RIGHT 07/25/2009 715.16 OSTEOARTHRITIS LOCALIZED PRIMARY - KNEE RIGHT 07/25/2009 ADDIE DO, SHAYNA K 715.16 OSTEOARTHRITIS LOCALIZED PRIMARY - KNEE RIGHT 07/25/2009 REAL DO, SHAYNA K 715.16 OSTEOARTHRITIS LOCALIZED PRIMARY - KNEE RIGHT 07/25/2009 REAL DO, SHAYNA K 715.16 OSTEOARTHRITIS LOCALIZED PRIMARY - KNEE RIGHT 07/25/2009 REAL DO, SHAYNA K 715.16 OSTEOARTHRITIS LOCALIZED PRIMARY - KNEE RIGHT 07/25/2009 REAL DO, SHAYNA K 715.16 OSTEOARTHRITIS LOCALIZED PRIMARY - KNEE RIGHT 07/25/2009 REAL DO, SHAYNA K 715.16 OSTEOARTHRITIS LOCALIZED PRIMARY - KNEE RIGHT 07/25/2009 REAL DO, SHAYNA K 715.16 OSTEOARTHRITIS LOCALIZED PRIMARY - KNEE RIGHT 07/25/2009 REAL DO, SHAYNA K 715.16 OSTEOARTHRITIS LOCALIZED PRIMARY - KNEE RIGHT 07/25/2009 REAL DO, SHAYNA K 715.16 OSTEOARTHRITIS LOCALIZED PRIMARY - KNEE RIGHT 07/25/2009 REAL DO SHAYNA K 715.16 OSTEOARTHRITIS LOCALIZED PRIMARY - KNEE RIGHT 07/25/2009 SOHAN HINES, JAY Overton 715.16 OSTEOARTHRITIS LOCALIZED PRIMARY - KNEE RIGHT 07/25/2009 REAL DO SHAYNA K 715.16 OSTEOARTHRITIS LOCALIZED PRIMARY - KNEE RIGHT 07/25/2009 SOHAN HINES, JAY M 715.16 OSTEOARTHRITIS LOCALIZED PRIMARY - KNEE RIGHT 07/25/2009 REAL DO SHAYNA K 715.16 OSTEOARTHRITIS LOCALIZED PRIMARY - KNEE RIGHT 07/25/2009 REAL DO SHAYNA K 715.16 OSTEOARTHRITIS LOCALIZED PRIMARY - KNEE RIGHT 07/25/2009 REAL DO SHAYNA K 715.16 OSTEOARTHRITIS LOCALIZED PRIMARY - KNEE RIGHT 07/25/2009 JETHRO SHETH MD 715.16 OSTEOARTHRITIS LOCALIZED PRIMARY - KNEE RIGHT 07/25/2009 JETHRO SHETH MD 715.16 OSTEOARTHRITIS LOCALIZED PRIMARY - KNEE RIGHT 07/25/2009 ADDIE NOONAN SHAYNA K 715.16 OSTEOARTHRITIS LOCALIZED PRIMARY - KNEE RIGHT 07/25/2009 HEMANTH HARRINGTON, KALTYN E 715.16 OSTEOARTHRITIS LOCALIZED PRIMARY - KNEE RIGHT 07/25/2009 ELOYLCRISTAL HARRINGTON KATLYN E 715.16 OSTEOARTHRITIS LOCALIZED PRIMARY - KNEE RIGHT 07/25/2009 ADDIE NOONAN SHAYNA K 715.16 OSTEOARTHRITIS LOCALIZED PRIMARY - KNEE RIGHT 07/25/2009 ELOYLCRISTAL HARRINGTON, KATLYN E 715.16 OSTEOARTHRITIS LOCALIZED PRIMARY - KNEE RIGHT 07/25/2009 ADDIE NOONAN SHAYNA K 715.16 OSTEOARTHRITIS LOCALIZED PRIMARY - KNEE RIGHT 07/25/2009 BRITT HINES, ROSSY N 715.16 OSTEOARTHRITIS LOCALIZED PRIMARY - KNEE RIGHT 07/25/2009 ELOYLCRISTAL HARRINGTON, KATLYN E 715.16 OSTEOARTHRITIS LOCALIZED PRIMARY - KNEE RIGHT 08/06/2009 AIMEE CONKLIN MD 285.9 ANEMIA UNSPECIFIED 08/06/2009 AIMEE CONKLIN MD 285.9 ANEMIA UNSPECIFIED 08/06/2009 285.9 ANEMIA UNSPECIFIED 08/06/2009 AIMEE CONKLIN MD 285.9 ANEMIA UNSPECIFIED 08/06/2009 285.9 ANEMIA UNSPECIFIED 08/06/2009 285.9 ANEMIA UNSPECIFIED 08/06/2009 285.9 ANEMIA UNSPECIFIED 08/06/2009 285.9 ANEMIA UNSPECIFIED 08/06/2009 285.9 ANEMIA UNSPECIFIED 08/06/2009 285.9 ANEMIA UNSPECIFIED 08/06/2009 285.9 ANEMIA UNSPECIFIED 08/06/2009 SHAYNA REAL DO K 285.9 ANEMIA UNSPECIFIED 08/06/2009 REAL DO, SHAYNA K 285.9 ANEMIA UNSPECIFIED 08/06/2009 REAL DO, SHAYNA K 285.9 ANEMIA UNSPECIFIED 08/06/2009 REAL DO, SHAYNA K 285.9 ANEMIA UNSPECIFIED 08/06/2009 REAL DO, SHAYNA K 285.9 ANEMIA UNSPECIFIED 08/06/2009 REAL DO, SHAYNA K 285.9 ANEMIA UNSPECIFIED 08/06/2009 REAL DO, SHAYNA K 285.9 ANEMIA UNSPECIFIED 08/06/2009 REAL DO, SHAYNA K 285.9 ANEMIA UNSPECIFIED 08/06/2009 REAL DO, SHAYNA K 285.9 ANEMIA UNSPECIFIED 08/06/2009 REAL DO, SHAYNA K 285.9 ANEMIA UNSPECIFIED 08/06/2009 SOHAN HINES, JAY Overton 285.9 ANEMIA UNSPECIFIED 08/06/2009 REAL DO, SHAYNA K 285.9 ANEMIA UNSPECIFIED 08/06/2009 SOHAN HINES, JAY Overton 285.9 ANEMIA UNSPECIFIED 08/06/2009 REAL DO, SHAYNA K 285.9 ANEMIA UNSPECIFIED 08/06/2009 REAL DO, SHAYNA K 285.9 ANEMIA UNSPECIFIED 08/06/2009 REAL DO, SHAYNA K 285.9 ANEMIA UNSPECIFIED 08/06/2009 JETHRO SHETH MD 285.9 ANEMIA UNSPECIFIED 08/06/2009 JETHRO SHETH MD 285.9 ANEMIA UNSPECIFIED 08/06/2009 REAL DO, SHAYNA K 285.9 ANEMIA UNSPECIFIED 08/06/2009 AKTLYN SAXENA APRN E 285.9 ANEMIA UNSPECIFIED 08/06/2009 JAMEL SAXENA APRNSIE E 285.9 ANEMIA UNSPECIFIED 08/06/2009 REAL DO, SHAYNA K 285.9 ANEMIA UNSPECIFIED 08/06/2009 HEMANTH HARRINGTON KATLYN E 285.9 ANEMIA UNSPECIFIED 08/06/2009 REAL DO, SHAYNA K 285.9 ANEMIA UNSPECIFIED 08/06/2009 ROSSY DE LA TORRE MD 285.9 ANEMIA UNSPECIFIED 08/06/2009 KATLYN SAXENA APRN E 285.9 ANEMIA UNSPECIFIED 08/20/2009 AIMEE CONKLIN MD 280.9 ANEMIA IRON DEFICIENCY 08/20/2009 AIMEE CONKLIN MD 844.2 SPRAINS AND STRAINS OF KNEE AND LEG, CRUCIATE LIGAMENT OF KNEE 08/20/2009 AIMEE CONKLIN MD 280.9 ANEMIA IRON DEFICIENCY 08/20/2009 AIMEE CONKLIN MD 844.2 SPRAINS AND STRAINS OF KNEE AND LEG, CRUCIATE LIGAMENT OF KNEE 08/20/2009 280.9 ANEMIA IRON DEFICIENCY 08/20/2009 844.2 SPRAINS AND STRAINS OF KNEE AND LEG, CRUCIATE LIGAMENT OF KNEE 08/20/2009 AIMEE CONKLIN MD 280.9 ANEMIA IRON DEFICIENCY 08/20/2009 AIMEE CONKLIN MD 844.2 SPRAINS AND STRAINS OF KNEE AND LEG, CRUCIATE LIGAMENT OF KNEE 08/20/2009 280.9 ANEMIA IRON DEFICIENCY 08/20/2009 844.2 SPRAINS AND STRAINS OF KNEE AND LEG, CRUCIATE LIGAMENT OF KNEE 08/20/2009 280.9 ANEMIA IRON DEFICIENCY 08/20/2009 844.2 SPRAINS AND STRAINS OF KNEE AND LEG, CRUCIATE LIGAMENT OF KNEE 08/20/2009 280.9 ANEMIA IRON DEFICIENCY 08/20/2009 844.2 SPRAINS AND STRAINS OF KNEE AND LEG, CRUCIATE LIGAMENT OF KNEE 08/20/2009 280.9 ANEMIA IRON DEFICIENCY 08/20/2009 844.2 SPRAINS AND STRAINS OF KNEE AND LEG, CRUCIATE LIGAMENT OF KNEE 08/20/2009 280.9 ANEMIA IRON DEFICIENCY 08/20/2009 844.2 SPRAINS AND STRAINS OF KNEE AND LEG, CRUCIATE LIGAMENT OF KNEE 08/20/2009 280.9 ANEMIA IRON DEFICIENCY 08/20/2009 844.2 SPRAINS AND STRAINS OF KNEE AND LEG, CRUCIATE LIGAMENT OF KNEE 08/20/2009 280.9 ANEMIA IRON DEFICIENCY 08/20/2009 844.2 SPRAINS AND STRAINS OF KNEE AND LEG, CRUCIATE LIGAMENT OF KNEE 08/20/2009 REAL DO, SHAYNA K 280.9 ANEMIA IRON DEFICIENCY 08/20/2009 REAL DO, SHAYNA K 844.2 SPRAINS AND STRAINS OF KNEE AND LEG, CRUCIATE LIGAMENT OF KNEE 08/20/2009 REAL DO, SHAYNA K 280.9 ANEMIA IRON DEFICIENCY 08/20/2009 REAL DO, SHAYNA K 844.2 SPRAINS AND STRAINS OF KNEE AND LEG, CRUCIATE LIGAMENT OF KNEE 08/20/2009 REAL DO, SHAYNA K 280.9 ANEMIA IRON DEFICIENCY 08/20/2009 REAL DO, SHAYNA K 844.2 SPRAINS AND STRAINS OF KNEE AND LEG, CRUCIATE LIGAMENT OF KNEE 08/20/2009 REAL DO, SHAYNA K 280.9 ANEMIA IRON DEFICIENCY 08/20/2009 REAL DO, SHAYNA K 844.2 SPRAINS AND STRAINS OF KNEE AND LEG, CRUCIATE LIGAMENT OF KNEE 08/20/2009 REAL DO, SHAYNA K 280.9 ANEMIA IRON DEFICIENCY 08/20/2009 REAL DO, SHAYNA K 844.2 SPRAINS AND STRAINS OF KNEE AND LEG, CRUCIATE LIGAMENT OF KNEE 08/20/2009 REAL DO, SHAYNA K 280.9 ANEMIA IRON DEFICIENCY 08/20/2009 REAL DO, SHAYNA K 844.2 SPRAINS AND STRAINS OF KNEE AND LEG, CRUCIATE LIGAMENT OF KNEE 08/20/2009 REAL DO, SHAYNA K 280.9 ANEMIA IRON DEFICIENCY 08/20/2009 REAL DO, SHAYNA K 844.2 SPRAINS AND STRAINS OF KNEE AND LEG, CRUCIATE LIGAMENT OF KNEE 08/20/2009 REAL DO, SHAYNA K 280.9 ANEMIA IRON DEFICIENCY 08/20/2009 REAL DO, SHAYNA K 844.2 SPRAINS AND STRAINS OF KNEE AND LEG, CRUCIATE LIGAMENT OF KNEE 08/20/2009 REAL DO, SHAYNA K 280.9 ANEMIA IRON DEFICIENCY 08/20/2009 REAL DO, SHAYNA K 844.2 SPRAINS AND STRAINS OF KNEE AND LEG, CRUCIATE LIGAMENT OF KNEE 08/20/2009 REAL DO, SHAYNA K 280.9 ANEMIA IRON DEFICIENCY 08/20/2009 REAL DO, SHAYNA K 844.2 SPRAINS AND STRAINS OF KNEE AND LEG, CRUCIATE LIGAMENT OF KNEE 08/20/2009 SOHAN HINES, JAY M 280.9 ANEMIA IRON DEFICIENCY 08/20/2009 SOHAN HINES, JAY M 844.2 SPRAINS AND STRAINS OF KNEE AND LEG, CRUCIATE LIGAMENT OF KNEE 08/20/2009 REAL DO, SHAYNA K 280.9 ANEMIA IRON DEFICIENCY 08/20/2009 REAL DO, SHAYNA K 844.2 SPRAINS AND STRAINS OF KNEE AND LEG, CRUCIATE LIGAMENT OF KNEE 08/20/2009 SOHAN HINES, JAY M 280.9 ANEMIA IRON DEFICIENCY 08/20/2009 SOHAN HINES, JAY M 844.2 SPRAINS AND STRAINS OF KNEE AND LEG, CRUCIATE LIGAMENT OF KNEE 08/20/2009 REAL DO, SHAYNA K 280.9 ANEMIA IRON DEFICIENCY 08/20/2009 REAL DO, SHAYNA K 844.2 SPRAINS AND STRAINS OF KNEE AND LEG, CRUCIATE LIGAMENT OF KNEE 08/20/2009 REAL DO, SHAYNA K 280.9 ANEMIA IRON DEFICIENCY 08/20/2009 REAL DO, SHAYNA K 844.2 SPRAINS AND STRAINS OF KNEE AND LEG, CRUCIATE LIGAMENT OF KNEE 08/20/2009 REAL DO, SHAYNA K 280.9 ANEMIA IRON DEFICIENCY 08/20/2009 REAL DO, SHAYNA K 844.2 SPRAINS AND STRAINS OF KNEE AND LEG, CRUCIATE LIGAMENT OF KNEE 08/20/2009 JETHRO SHETH MD 280.9 ANEMIA IRON DEFICIENCY 08/20/2009 JETHRO SHETH MD 844.2 SPRAINS AND STRAINS OF KNEE AND LEG, CRUCIATE LIGAMENT OF KNEE 08/20/2009 JETHRO SHETH MD 280.9 ANEMIA IRON DEFICIENCY 08/20/2009 JETHRO SHETH MD 844.2 SPRAINS AND STRAINS OF KNEE AND LEG, CRUCIATE LIGAMENT OF KNEE 08/20/2009 REAL DO, SHAYNA K 280.9 ANEMIA IRON DEFICIENCY 08/20/2009 REAL DO, SHAYNA K 844.2 SPRAINS AND STRAINS OF KNEE AND LEG, CRUCIATE LIGAMENT OF KNEE 08/20/2009 HEMANTH HARRINGTON KATLYN E 280.9 ANEMIA IRON DEFICIENCY 08/20/2009 HEMANTH HARRINGTON KATLYN E 844.2 SPRAINS AND STRAINS OF KNEE AND LEG, CRUCIATE LIGAMENT OF KNEE 08/20/2009 HEMANTH HARRINGTON KATLYN E 280.9 ANEMIA IRON DEFICIENCY 08/20/2009 HEMANTH SANTAMARIAN, KATLYN E 844.2 SPRAINS AND STRAINS OF KNEE AND LEG, CRUCIATE LIGAMENT OF KNEE 08/20/2009 REAL DO, SHAYNA K 280.9 ANEMIA IRON DEFICIENCY 08/20/2009 REAL DO, SHAYNA K 844.2 SPRAINS AND STRAINS OF KNEE AND LEG, CRUCIATE LIGAMENT OF KNEE 08/20/2009 HEMANTH SANTAMARIAN, KATLYN E 280.9 ANEMIA IRON DEFICIENCY 08/20/2009 HEMANTH 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, KATLYN E 844.2 SPRAINS AND STRAINS OF KNEE AND LEG, CRUCIATE LIGAMENT OF KNEE 08/20/2009 REAL DO, SHAYNA K 280.9 ANEMIA IRON DEFICIENCY 08/20/2009 REAL DO, SHAYNA K 844.2 SPRAINS AND STRAINS OF KNEE AND LEG, CRUCIATE LIGAMENT OF KNEE 08/20/2009 ROSSY DE LA TORRE MD N 280.9 ANEMIA IRON DEFICIENCY 08/20/2009 ROSSY DE LA TORRE MD N 844.2 SPRAINS AND STRAINS OF KNEE AND LEG, CRUCIATE LIGAMENT OF KNEE 08/20/2009 KATLYN SAXENA APRN E 280.9 ANEMIA IRON DEFICIENCY 08/20/2009 KATLYN SAXENA APRN E 844.2 SPRAINS AND STRAINS OF KNEE AND LEG, CRUCIATE LIGAMENT OF KNEE 10/03/2009 AIMEE CONKLIN MD 729.81 (Lower) Leg Localized Swelling 10/03/2009 AIMEE CONKLIN MD 729.81 (Lower) Leg Localized Swelling 10/03/2009 729.81 (Lower) Leg Localized Swelling 10/03/2009 AIMEE CONKLIN MD 729.81 (Lower) Leg Localized Swelling 10/03/2009 729.81 (Lower) Leg Localized Swelling 10/03/2009 729.81 (Lower) Leg Localized Swelling 10/03/2009 729.81 (Lower) Leg Localized Swelling 10/03/2009 729.81 (Lower) Leg Localized Swelling 10/03/2009 729.81 (Lower) Leg Localized Swelling 10/03/2009 729.81 (Lower) Leg Localized Swelling 10/03/2009 729.81 (Lower) Leg Localized Swelling 10/03/2009 REAL DO, SHAYNA K 729.81 (Lower) Leg Localized Swelling 10/03/2009 REAL DO, SHAYNA K 729.81 (Lower) Leg Localized Swelling 10/03/2009 REAL DO, SHAYNA K 729.81 (Lower) Leg Localized Swelling 10/03/2009 REAL DO, SHAYNA K 729.81 (Lower) Leg Localized Swelling 10/03/2009 REAL DO, SHAYNA K 729.81 (Lower) Leg Localized Swelling 10/03/2009 REAL DO, SHAYNA K 729.81 (Lower) Leg Localized Swelling 10/03/2009 REAL DO, SHAYNA K 729.81 (Lower) Leg Localized Swelling 10/03/2009 REAL DO, SHAYNA K 729.81 (Lower) Leg Localized Swelling 10/03/2009 REAL DO, SHAYNA K 729.81 (Lower) Leg Localized Swelling 10/03/2009 REAL DO, SHAYNA K 729.81 (Lower) Leg Localized Swelling 10/03/2009 JAY MENDEZ MD 729.81 (Lower) Leg Localized Swelling 10/03/2009 REAL DO, SHAYNA K 729.81 (Lower) Leg Localized Swelling 10/03/2009 JAY MENDEZ MD 729.81 (Lower) Leg Localized Swelling 10/03/2009 REAL DO, SHAYNA K 729.81 (Lower) Leg Localized Swelling 10/03/2009 REAL DO, SHAYNA K 729.81 (Lower) Leg Localized Swelling 10/03/2009 REAL DO, SHAYNA K 729.81 (Lower) Leg Localized Swelling 10/03/2009 JETHRO SHETH MD 729.81 (Lower) Leg Localized Swelling 10/03/2009 JETHRO SHETH MD 729.81 (Lower) Leg Localized Swelling 10/03/2009 REAL DO, SHAYNA K 729.81 (Lower) Leg Localized Swelling 10/03/2009 HELLWIG 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, KATLYN E 729.81 (Lower) Leg Localized Swelling 10/03/2009 HELLWIG 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, KATLYN E 729.81 (Lower) Leg Localized Swelling 10/03/2009 REAL DO, SHAYNA K 729.81 (Lower) Leg Localized Swelling 10/03/2009 HELLWIG 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, KATLYN E 729.81 (Lower) Leg Localized Swelling 10/03/2009 REAL DO, SHAYNA K 729.81 (LOWER) LEG LOCALIZED SWELLING 10/03/2009 ROSSY DE LA TORRE MD N 729.81 (LOWER) LEG LOCALIZED SWELLING 10/03/2009 HELLWIG 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, KATLYN E 729.81 (LOWER) LEG LOCALIZED SWELLING 05/26/2010 AIMEE CONKLIN MD 380.10 INFECTIVE OTITIS EXTERNA UNSPECIFIED 05/26/2010 AIMEE CONKLIN MD 784.91 POSTNASAL DRIP 05/26/2010 AIMEE CONKLIN MD V15.05 PERSONAL HISTORY OF ALLERGY TO OTHER FOODS 05/26/2010 AIMEE CONKLIN MD 380.10 INFECTIVE OTITIS EXTERNA UNSPECIFIED 05/26/2010 AMIEE CONKLIN MD 784.91 POSTNASAL DRIP 05/26/2010 AIMEE CONKLIN MD V15.05 PERSONAL HISTORY OF ALLERGY TO OTHER FOODS 05/26/2010 380.10 INFECTIVE OTITIS EXTERNA UNSPECIFIED 05/26/2010 784.91 POSTNASAL DRIP 05/26/2010 V15.05 PERSONAL HISTORY OF ALLERGY TO OTHER FOODS 05/26/2010 AIMEE CONKLIN MD 380.10 INFECTIVE OTITIS EXTERNA UNSPECIFIED 05/26/2010 AIMEE CONKLIN MD 784.91 POSTNASAL DRIP 05/26/2010 AIMEE CONKLIN MD V15.05 PERSONAL HISTORY OF ALLERGY TO OTHER FOODS 05/26/2010 380.10 INFECTIVE OTITIS EXTERNA UNSPECIFIED 05/26/2010 784.91 POSTNASAL DRIP 05/26/2010 V15.05 PERSONAL HISTORY OF ALLERGY TO OTHER FOODS 05/26/2010 380.10 INFECTIVE OTITIS EXTERNA UNSPECIFIED 05/26/2010 784.91 POSTNASAL DRIP 05/26/2010 V15.05 PERSONAL HISTORY OF ALLERGY TO OTHER FOODS 05/26/2010 380.10 INFECTIVE OTITIS EXTERNA UNSPECIFIED 05/26/2010 784.91 POSTNASAL DRIP 05/26/2010 V15.05 PERSONAL HISTORY OF ALLERGY TO OTHER FOODS 05/26/2010 380.10 INFECTIVE OTITIS EXTERNA UNSPECIFIED 05/26/2010 784.91 POSTNASAL DRIP 05/26/2010 V15.05 PERSONAL HISTORY OF ALLERGY TO OTHER FOODS 05/26/2010 380.10 INFECTIVE OTITIS EXTERNA UNSPECIFIED 05/26/2010 784.91 POSTNASAL DRIP 05/26/2010 V15.05 PERSONAL HISTORY OF ALLERGY TO OTHER FOODS 05/26/2010 380.10 INFECTIVE OTITIS EXTERNA UNSPECIFIED 05/26/2010 784.91 POSTNASAL DRIP 05/26/2010 V15.05 PERSONAL HISTORY OF ALLERGY TO OTHER FOODS 05/26/2010 380.10 INFECTIVE OTITIS EXTERNA UNSPECIFIED 05/26/2010 784.91 POSTNASAL DRIP 05/26/2010 V15.05 PERSONAL HISTORY OF ALLERGY TO OTHER FOODS 05/26/2010 REAL DO, SHAYNA K 380.10 INFECTIVE OTITIS EXTERNA UNSPECIFIED 05/26/2010 REAL DO, SHAYNA K 784.91 POSTNASAL DRIP 05/26/2010 REAL DO, SHAYNA K V15.05 PERSONAL HISTORY OF ALLERGY TO OTHER FOODS 05/26/2010 REAL DO, SHAYNA K 380.10 INFECTIVE OTITIS EXTERNA UNSPECIFIED 05/26/2010 REAL DO, SHAYNA K 784.91 POSTNASAL DRIP 05/26/2010 REAL DO, SHAYNA K V15.05 PERSONAL HISTORY OF ALLERGY TO OTHER FOODS 05/26/2010 REAL DO, SHAYNA K 380.10 INFECTIVE OTITIS EXTERNA UNSPECIFIED 05/26/2010 REAL DO, SHAYNA K 784.91 POSTNASAL DRIP 05/26/2010 REAL DO, SHAYNA K V15.05 PERSONAL HISTORY OF ALLERGY TO OTHER FOODS 05/26/2010 REAL DO, SHAYNA K 380.10 INFECTIVE OTITIS EXTERNA UNSPECIFIED 05/26/2010 REAL DO, SHAYNA K 784.91 POSTNASAL DRIP 05/26/2010 REAL DO, SHANYA K V15.05 PERSONAL HISTORY OF ALLERGY TO OTHER FOODS 05/26/2010 REAL DO, SHAYNA K 380.10 INFECTIVE OTITIS EXTERNA UNSPECIFIED 05/26/2010 REAL DO, SHAYNA K 784.91 POSTNASAL DRIP 05/26/2010 REAL DO, SHAYNA K V15.05 PERSONAL HISTORY OF ALLERGY TO OTHER FOODS 05/26/2010 REAL DO, SHAYNA K 380.10 INFECTIVE OTITIS EXTERNA UNSPECIFIED 05/26/2010 REAL DO, SHAYNA K 784.91 POSTNASAL DRIP 05/26/2010 REAL DO, SHAYNA K V15.05 PERSONAL HISTORY OF ALLERGY TO OTHER FOODS 05/26/2010 REAL DO, SAHYNA K 380.10 INFECTIVE OTITIS EXTERNA UNSPECIFIED 05/26/2010 REAL DO, HSAYNA K 784.91 POSTNASAL DRIP 05/26/2010 REAL DO, SHAYNA K V15.05 PERSONAL HISTORY OF ALLERGY TO OTHER FOODS 05/26/2010 REAL DO, SHAYNA K 380.10 INFECTIVE OTITIS EXTERNA UNSPECIFIED 05/26/2010 REAL DO, SHAYNA K 784.91 POSTNASAL DRIP 05/26/2010 REAL DO, SHAYNA K V15.05 PERSONAL HISTORY OF ALLERGY TO OTHER FOODS 05/26/2010 REAL DO, SHAYNA K 380.10 INFECTIVE OTITIS EXTERNA UNSPECIFIED 05/26/2010 REAL DO, SHAYNA K 784.91 POSTNASAL DRIP 05/26/2010 REAL DO, SHAYNA K V15.05 PERSONAL HISTORY OF ALLERGY TO OTHER FOODS 05/26/2010 REAL DO, SHAYNA K 380.10 INFECTIVE OTITIS EXTERNA UNSPECIFIED 05/26/2010 REAL DO, SHAYAN K 784.91 POSTNASAL DRIP 05/26/2010 REAL DO, SHAYNA K V15.05 PERSONAL HISTORY OF ALLERGY TO OTHER FOODS 05/26/2010 SOHAN HINES, JAY Overton 380.10 INFECTIVE OTITIS EXTERNA UNSPECIFIED 05/26/2010 SOHAN HINES, JAY Overton 784.91 POSTNASAL DRIP 05/26/2010 SOHAN HINES, JAY Overton V15.05 PERSONAL HISTORY OF ALLERGY TO OTHER FOODS 05/26/2010 REAL DO, SHAYNA K 380.10 INFECTIVE OTITIS EXTERNA UNSPECIFIED 05/26/2010 REAL DO, SHAYNA K 784.91 POSTNASAL DRIP 05/26/2010 REAL DO, SHAYNA K V15.05 PERSONAL HISTORY OF ALLERGY TO OTHER FOODS 05/26/2010 SOHAN HINES, JAY Overton 380.10 INFECTIVE OTITIS EXTERNA UNSPECIFIED 05/26/2010 SOHAN HINES, JAY Overton 784.91 POSTNASAL DRIP 05/26/2010 SOHAN HINES, JAY Overton V15.05 PERSONAL HISTORY OF ALLERGY TO OTHER FOODS 05/26/2010 REAL DO, SHAYNA K 380.10 INFECTIVE OTITIS EXTERNA UNSPECIFIED 05/26/2010 REAL DO, SHAYNA K 784.91 POSTNASAL DRIP 05/26/2010 REAL DO, SHAYNA K V15.05 PERSONAL HISTORY OF ALLERGY TO OTHER FOODS 05/26/2010 REAL DO, SHAYNA K 380.10 INFECTIVE OTITIS EXTERNA UNSPECIFIED 05/26/2010 REAL DO, SHAYNA K 784.91 POSTNASAL DRIP 05/26/2010 REAL DO, SHAYNA K V15.05 PERSONAL HISTORY OF ALLERGY TO OTHER FOODS 05/26/2010 REAL DO, SHAYNA K 380.10 INFECTIVE OTITIS EXTERNA UNSPECIFIED 05/26/2010 REAL DO, SHAYNA K 784.91 POSTNASAL DRIP 05/26/2010 REAL DO, SHAYNA K V15.05 PERSONAL HISTORY OF ALLERGY TO OTHER FOODS 05/26/2010 JETHRO SHETH MD 380.10 INFECTIVE OTITIS EXTERNA UNSPECIFIED 05/26/2010 JETHRO SHETH MD 784.91 POSTNASAL DRIP 05/26/2010 JETHRO SHETH MD V15.05 PERSONAL HISTORY OF ALLERGY TO OTHER FOODS 05/26/2010 JETHRO SHETH MD 380.10 INFECTIVE OTITIS EXTERNA UNSPECIFIED 05/26/2010 JETHRO SHETH MD 784.91 POSTNASAL DRIP 05/26/2010 JETHRO SHETH MD V15.05 PERSONAL HISTORY OF ALLERGY TO OTHER FOODS 05/26/2010 REAL DO, SHAYNA K 380.10 INFECTIVE OTITIS EXTERNA UNSPECIFIED 05/26/2010 REAL DO, SHAYNA K 784.91 POSTNASAL DRIP 05/26/2010 ERAL DO, SHAYNA K V15.05 PERSONAL HISTORY OF ALLERGY TO OTHER FOODS 05/26/2010 ELOYLCRISTAL 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KATLYN 380.10 INFECTIVE OTITIS EXTERNA UNSPECIFIED 05/26/2010 HEMANTH HARRINGTON KATLYN E 784.91 POSTNASAL DRIP 05/26/2010 HELVANESSA HARRINGTON KATLYN E V15.05 PERSONAL HISTORY OF ALLERGY TO OTHER FOODS 05/26/2010 HEMANTH HARRINGTON KATLYN E 380.10 INFECTIVE OTITIS EXTERNA UNSPECIFIED 05/26/2010 HEMANTH HARRINGTON KATLYN E 784.91 POSTNASAL DRIP 05/26/2010 HEMANTH HARRINGTON KATLYN E V15.05 PERSONAL HISTORY OF ALLERGY TO OTHER FOODS 05/26/2010 REAL DO, SHAYNA K 380.10 INFECTIVE OTITIS EXTERNA UNSPECIFIED 05/26/2010 REAL DO, SHAYNA K 784.91 POSTNASAL DRIP 05/26/2010 REAL DO, SHAYNA K V15.05 PERSONAL HISTORY OF ALLERGY TO OTHER FOODS 05/26/2010 HEMANTH HARRINGTON KATLYN E 380.10 INFECTIVE OTITIS EXTERNA UNSPECIFIED 05/26/2010 HEMANTH HARRINGTON KATLYN E 784.91 POSTNASAL DRIP 05/26/2010 HEMANTH HARRINGTON KATLYN E V15.05 PERSONAL HISTORY OF ALLERGY TO OTHER FOODS 05/26/2010 REAL DO, SHAYNA K 380.10 INFECTIVE OTITIS EXTERNA UNSPECIFIED 05/26/2010 REAL DO, SHAYNA K 784.91 POSTNASAL DRIP 05/26/2010 REAL DO, SHAYNA K V15.05 PERSONAL HISTORY OF ALLERGY TO OTHER FOODS 05/26/2010 BRITT HINES, ROSSY N 380.10 INFECTIVE OTITIS EXTERNA UNSPECIFIED 05/26/2010 ROSSY DE LA TORRE MD N 784.91 POSTNASAL DRIP 05/26/2010 ROSSY DE LA TORRE MD N V15.05 PERSONAL HISTORY OF ALLERGY TO OTHER FOODS 05/26/2010 HEMANTH HARRINGTON KATLYN E 380.10 INFECTIVE OTITIS EXTERNA UNSPECIFIED 05/26/2010 HEMANTH HARRINGTON KATLYN E 784.91 POSTNASAL DRIP 05/26/2010 HEMANTH HARRINGTON KATLYN E V15.05 PERSONAL HISTORY OF ALLERGY TO OTHER FOODS 07/03/2010 AIMEE CONKLIN MD 782.3 EDEMA 07/03/2010 AIMEE CONKLIN MD 786.05 SHORTNESS OF BREATH 07/03/2010 AIMEE CONKLIN MD 782.3 EDEMA 07/03/2010 AIMEE CONKLIN MD 786.05 SHORTNESS OF BREATH 07/03/2010 782.3 EDEMA 07/03/2010 786.05 SHORTNESS OF BREATH 07/03/2010 AIMEE CONKLIN MD 782.3 EDEMA 07/03/2010 AIMEE CONKLIN MD 786.05 SHORTNESS OF BREATH 07/03/2010 782.3 EDEMA 07/03/2010 786.05 SHORTNESS OF BREATH 07/03/2010 782.3 EDEMA 07/03/2010 786.05 SHORTNESS OF BREATH 07/03/2010 782.3 EDEMA 07/03/2010 786.05 SHORTNESS OF BREATH 07/03/2010 782.3 EDEMA 07/03/2010 786.05 SHORTNESS OF BREATH 07/03/2010 782.3 EDEMA 07/03/2010 786.05 SHORTNESS OF BREATH 07/03/2010 782.3 EDEMA 07/03/2010 786.05 SHORTNESS OF BREATH 07/03/2010 782.3 EDEMA 07/03/2010 786.05 SHORTNESS OF BREATH 07/03/2010 REAL DO, SHAYNA K 782.3 EDEMA 07/03/2010 REAL DO, SHAYNA K 786.05 SHORTNESS OF BREATH 07/03/2010 REAL DO, SHAYNA K 782.3 EDEMA 07/03/2010 REAL DO, SHAYNA K 786.05 SHORTNESS OF BREATH 07/03/2010 REAL DO, SHAYNA K 782.3 EDEMA 07/03/2010 REAL DO, SHAYNA K 786.05 SHORTNESS OF BREATH 07/03/2010 REAL DO, SHAYNA K 782.3 EDEMA 07/03/2010 REAL DO, SHAYNA K 786.05 SHORTNESS OF BREATH 07/03/2010 REAL DO, SHAYNA K 782.3 EDEMA 07/03/2010 REAL DO, SHAYNA K 786.05 SHORTNESS OF BREATH 07/03/2010 REAL DO, SHAYNA K 782.3 EDEMA 07/03/2010 REAL DO, SHAYNA K 786.05 SHORTNESS OF BREATH 07/03/2010 REAL DO, SHAYNA K 782.3 EDEMA 07/03/2010 REAL DO, SHAYNA K 786.05 SHORTNESS OF BREATH 07/03/2010 REAL DO, SHAYNA K 782.3 EDEMA 07/03/2010 REAL DO, SHAYNA K 786.05 SHORTNESS OF BREATH 07/03/2010 REAL DO, SHAYNA K 782.3 EDEMA 07/03/2010 REAL DO, SHAYNA K 786.05 SHORTNESS OF BREATH 07/03/2010 REAL DO, SHAYNA K 782.3 EDEMA 07/03/2010 REAL DO, SHAYNA K 786.05 SHORTNESS OF BREATH 07/03/2010 SOHAN HINES, JAY M 782.3 EDEMA 07/03/2010 SOHAN HINES, JAY M 786.05 SHORTNESS OF BREATH 07/03/2010 REAL DO, SHAYNA K 782.3 EDEMA 07/03/2010 REAL DO, SHAYNA K 786.05 SHORTNESS OF BREATH 07/03/2010 SOHAN HINES, JAY M 782.3 EDEMA 07/03/2010 SOHAN HINES, JAY M 786.05 SHORTNESS OF BREATH 07/03/2010 REAL DO, SHAYNA K 782.3 EDEMA 07/03/2010 REAL DO, SHAYNA K 786.05 SHORTNESS OF BREATH 07/03/2010 REAL DO, SHAYNA K 782.3 EDEMA 07/03/2010 REAL DO, SHAYNA K 786.05 SHORTNESS OF BREATH 07/03/2010 REAL DO, SHAYNA K 782.3 EDEMA 07/03/2010 REAL DO, SHAYNA K 786.05 SHORTNESS OF BREATH 07/03/2010 JETHRO SHETH MD 782.3 EDEMA 07/03/2010 JETHRO SHETH MD 786.05 SHORTNESS OF BREATH 07/03/2010 JETHRO SHETH MD 782.3 EDEMA 07/03/2010 JETHRO SHETH MD 786.05 SHORTNESS OF BREATH 07/03/2010 REAL DO, SHAYNA K 782.3 EDEMA 07/03/2010 REAL DO, SHAYNA K 786.05 SHORTNESS OF BREATH 07/03/2010 [employer]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 E 782.3 EDEMA [facility]86.05 SHORTNESS OF BREATH 07/22/2010 AIMEE CONKLIN MD 780.52 insomnia 07/22/2010 AIMEE CONKLIN MD V67.9 UNSPECIFIED FOLLOW-UP EXAMINATION 07/22/2010 AIMEE CONKLIN MD 780.52 insomnia 07/22/2010 AIMEE CONKLIN MD V67.9 UNSPECIFIED FOLLOW-UP EXAMINATION 07/22/2010 780.52 insomnia 07/22/2010 V67.9 UNSPECIFIED FOLLOW-UP EXAMINATION 07/22/2010 AIMEE CONKLIN MD 780.52 insomnia 07/22/2010 AIMEE CONKLIN MD V67.9 UNSPECIFIED FOLLOW-UP EXAMINATION 07/22/2010 780.52 insomnia 07/22/2010 V67.9 UNSPECIFIED FOLLOW-UP EXAMINATION 07/22/2010 780.52 insomnia 07/22/2010 V67.9 UNSPECIFIED FOLLOW-UP EXAMINATION 07/22/2010 780.52 insomnia 07/22/2010 V67.9 UNSPECIFIED FOLLOW-UP EXAMINATION 07/22/2010 780.52 insomnia 07/22/2010 V67.9 UNSPECIFIED FOLLOW-UP EXAMINATION 07/22/2010 780.52 insomnia 07/22/2010 V67.9 UNSPECIFIED FOLLOW-UP EXAMINATION 07/22/2010 780.52 insomnia 07/22/2010 V67.9 UNSPECIFIED FOLLOW-UP EXAMINATION 07/22/2010 780.52 insomnia 07/22/2010 V67.9 UNSPECIFIED FOLLOW-UP EXAMINATION 07/22/2010 JAMEL REAL DOA K 780.52 insomnia 07/22/2010 ADDIE NOONAN SHAYNA K V67.9 UNSPECIFIED FOLLOW-UP EXAMINATION 07/22/2010 ADDIE NOONAN SHAYNA K 780.52 insomnia 07/22/2010 REAL DO, SHAYNA K V67.9 UNSPECIFIED FOLLOW-UP EXAMINATION 07/22/2010 REAL DO, SHAYNA K 780.52 insomnia 07/22/2010 REAL DO, SHAYNA K V67.9 UNSPECIFIED FOLLOW-UP EXAMINATION 07/22/2010 REAL DO, SHAYNA K 780.52 insomnia 07/22/2010 REAL DO, SHAYNA K V67.9 UNSPECIFIED FOLLOW-UP EXAMINATION 07/22/2010 REAL DO, SHAYNA K 780.52 insomnia 07/22/2010 REAL DO, SHAYNA K V67.9 UNSPECIFIED FOLLOW-UP EXAMINATION 07/22/2010 REAL DO, SHAYNA K 780.52 insomnia 07/22/2010 REAL DO, SHAYNA K V67.9 UNSPECIFIED FOLLOW-UP EXAMINATION 07/22/2010 REAL DO, SHAYNA K 780.52 insomnia 07/22/2010 REAL DO, SHAYNA K V67.9 UNSPECIFIED FOLLOW-UP EXAMINATION 07/22/2010 REAL DO, SHAYNA K 780.52 insomnia 07/22/2010 REAL DO, SHAYNA K V67.9 UNSPECIFIED FOLLOW-UP EXAMINATION 07/22/2010 REAL DO, SHAYNA K 780.52 insomnia 07/22/2010 REAL DO, SHAYNA K V67.9 UNSPECIFIED FOLLOW-UP EXAMINATION 07/22/2010 REAL DO, SHAYNA K 780.52 insomnia 07/22/2010 REAL DO, SHAYNA K V67.9 UNSPECIFIED FOLLOW-UP EXAMINATION 07/22/2010 SOHAN HINES, JAY Overton 780.52 insomnia 07/22/2010 SOHAN HINES, JAY Overton V67.9 UNSPECIFIED FOLLOW-UP EXAMINATION 07/22/2010 REAL DO, SHAYNA K 780.52 insomnia 07/22/2010 REAL DO, SHAYNA K V67.9 UNSPECIFIED FOLLOW-UP EXAMINATION 07/22/2010 SOHAN HINES, JAY Overton 780.52 insomnia 07/22/2010 SOHAN HINES, JAY Overton V67.9 UNSPECIFIED FOLLOW-UP EXAMINATION 07/22/2010 REAL DO, SHAYNA K 780.52 insomnia 07/22/2010 REAL DO, SHAYNA K V67.9 UNSPECIFIED FOLLOW-UP EXAMINATION 07/22/2010 REAL DO, SHAYNA K 780.52 insomnia 07/22/2010 REAL DO, SHAYNA K V67.9 UNSPECIFIED FOLLOW-UP EXAMINATION 07/22/2010 REAL DO, SHAYNA K 780.52 insomnia 07/22/2010 REAL DO, SHAYNA K V67.9 UNSPECIFIED FOLLOW-UP EXAMINATION 07/22/2010 JETHRO SHETH MD 780.52 insomnia 07/22/2010 JETHRO SHETH MD V67.9 UNSPECIFIED FOLLOW-UP EXAMINATION 07/22/2010 JETHRO SHETH MD 780.52 insomnia 07/22/2010 JETHRO SHETH MD V67.9 UNSPECIFIED FOLLOW-UP EXAMINATION 07/22/2010 REAL DO, SHAYNA K 780.52 insomnia 07/22/2010 REAL DO, SHAYNA K V67.9 UNSPECIFIED FOLLOW-UP EXAMINATION 07/22/2010 ELOYLCRISTAL 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 KATLYN E 780.52 insomnia 07/22/2010 HELLCRISTAL 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, KATLYN E V67.9 UNSPECIFIED FOLLOW-UP EXAMINATION 07/22/2010 ELOYLCRISTAL 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, KATLYN E 780.52 insomnia 07/22/2010 ELOYLCRISTAL 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, KATLYN E V67.9 UNSPECIFIED FOLLOW-UP EXAMINATION 07/22/2010 REAL DO, SHAYNA K 780.52 insomnia 07/22/2010 REAL DO, SHAYNA K V67.9 UNSPECIFIED FOLLOW-UP EXAMINATION 07/22/2010 HELLCRISTAL 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 KATLYN E 780.52 insomnia 07/22/2010 HELLCRISTAL 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, KATLYN E V67.9 UNSPECIFIED FOLLOW-UP EXAMINATION 07/22/2010 REAL DO, SHAYNA K 780.52 INSOMNIA 07/22/2010 REAL DO, SHAYNA K V67.9 UNSPECIFIED FOLLOW-UP EXAMINATION 07/22/2010 ROSSY DE LA TORRE MD 780.52 INSOMNIA 07/22/2010 ROSSY DE LA TORRE MD V67.9 UNSPECIFIED FOLLOW-UP EXAMINATION 07/22/2010 HELLCRISTAL 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, KATLYN E 780.52 INSOMNIA 07/22/2010 HELLCRISTAL HARRINGTON KATLYN E V67.9 UNSPECIFIED FOLLOW-UP EXAMINATION 08/19/2010 AIMEE CONKLIN MD 724.2 lower back pain 08/19/2010 AIMEE CONKLIN MD 724.2 lower back pain 08/19/2010 724.2 lower back pain 08/19/2010 AIMEE CONKLIN MD 724.2 lower back pain 08/19/2010 724.2 lower back pain 08/19/2010 724.2 lower back pain 08/19/2010 724.2 lower back pain 08/19/2010 724.2 lower back pain 08/19/2010 724.2 lower back pain 08/19/2010 724.2 lower back pain 08/19/2010 724.2 lower back pain 08/19/2010 REAL DO, SHAYNA K 724.2 lower back pain 08/19/2010 REAL DO, SHAYNA K 724.2 lower back pain 08/19/2010 REAL DO, SHAYNA K 724.2 lower back pain 08/19/2010 REAL DO, SHAYNA K 724.2 lower back pain 08/19/2010 REAL DO, SHAYNA K 724.2 lower back pain 08/19/2010 REAL DO, SHAYNA K 724.2 lower back pain 08/19/2010 REAL DO, SHAYNA K 724.2 lower back pain 08/19/2010 REAL DO, SHAYNA K 724.2 lower back pain 08/19/2010 REAL DO, SHAYNA K 724.2 lower back pain 08/19/2010 REAL DO, SHAYNA K 724.2 lower back pain 08/19/2010 SOHAN HINES, JAY Overton 724.2 lower back pain 08/19/2010 REAL DO, SHAYNA K 724.2 lower back pain 08/19/2010 SOHAN HINES, JAY Overton 724.2 lower back pain 08/19/2010 REAL DO, SHAYNA K 724.2 lower back pain 08/19/2010 REAL DO, SHAYNA K 724.2 lower back pain 08/19/2010 REAL DO, SHAYNA K 724.2 lower back pain 08/19/2010 JETHRO SHETH MD 724.2 lower back pain 08/19/2010 JETHRO SHETH MD 724.2 lower back pain 08/19/2010 REAL DO, SHAYNA K 724.2 lower back pain 08/19/2010 KATLYN SAXENA APRN 724.2 lower back pain 08/19/2010 KATLYN SAXENA APRN 724.2 lower back pain 08/19/2010 REAL DO, SHAYNA K 724.2 lower back pain 08/19/2010 KATLYN SAXENA APRN 724.2 lower back pain 08/19/2010 REAL DO, SHAYNA K 724.2 LOWER BACK PAIN 08/19/2010 BRITT HINES, ROSSY Carl 724.2 LOWER BACK PAIN 08/19/2010 KATLYN SAXENA APRN 724.2 LOWER BACK PAIN 10/01/2010 AIMEE CONKLIN MD 465.9 ACUTE UPPER RESPIRATORY INFECTIONS OF UNSPECIFIED SITE 10/01/2010 AIMEE CONKLIN MD 465.9 ACUTE UPPER RESPIRATORY INFECTIONS OF UNSPECIFIED SITE 10/01/2010 465.9 ACUTE UPPER RESPIRATORY INFECTIONS OF UNSPECIFIED SITE 10/01/2010 AIMEE CONKLIN MD 465.9 ACUTE UPPER RESPIRATORY INFECTIONS OF UNSPECIFIED SITE 10/01/2010 465.9 ACUTE UPPER RESPIRATORY INFECTIONS OF UNSPECIFIED SITE 10/01/2010 465.9 ACUTE UPPER RESPIRATORY INFECTIONS OF UNSPECIFIED SITE 10/01/2010 465.9 ACUTE UPPER RESPIRATORY INFECTIONS OF UNSPECIFIED SITE 10/01/2010 465.9 ACUTE UPPER RESPIRATORY INFECTIONS OF UNSPECIFIED SITE 10/01/2010 465.9 ACUTE UPPER RESPIRATORY INFECTIONS OF UNSPECIFIED SITE 10/01/2010 465.9 ACUTE UPPER RESPIRATORY INFECTIONS OF UNSPECIFIED SITE 10/01/2010 465.9 ACUTE UPPER RESPIRATORY INFECTIONS OF UNSPECIFIED SITE 10/01/2010 REAL DO, SHAYNA K 465.9 ACUTE UPPER RESPIRATORY INFECTIONS OF UNSPECIFIED SITE 10/01/2010 REAL DO, SHAYNA K 465.9 ACUTE UPPER RESPIRATORY INFECTIONS OF UNSPECIFIED SITE 10/01/2010 REAL DO, SHAYNA K 465.9 ACUTE UPPER RESPIRATORY INFECTIONS OF UNSPECIFIED SITE 10/01/2010 REAL DO, SHAYNA K 465.9 ACUTE UPPER RESPIRATORY INFECTIONS OF UNSPECIFIED SITE 10/01/2010 REAL DO, SHAYNA K 465.9 ACUTE UPPER RESPIRATORY INFECTIONS OF UNSPECIFIED SITE 10/01/2010 REAL DO, SHAYNA K 465.9 ACUTE UPPER RESPIRATORY INFECTIONS OF UNSPECIFIED SITE 10/01/2010 REAL DO, SHAYNA K 465.9 ACUTE UPPER RESPIRATORY INFECTIONS OF UNSPECIFIED SITE 10/01/2010 REAL DO, SHAYNA K 465.9 ACUTE UPPER RESPIRATORY INFECTIONS OF UNSPECIFIED SITE 10/01/2010 REAL DO, SHAYNA K 465.9 ACUTE UPPER RESPIRATORY INFECTIONS OF UNSPECIFIED SITE 10/01/2010 REAL DO, SHAYNA K 465.9 ACUTE UPPER RESPIRATORY INFECTIONS OF UNSPECIFIED SITE 10/01/2010 SOHAN HINES, JAY Overton 465.9 ACUTE UPPER RESPIRATORY INFECTIONS OF UNSPECIFIED SITE 10/01/2010 REAL DO, SHAYNA K 465.9 ACUTE UPPER RESPIRATORY INFECTIONS OF UNSPECIFIED SITE 10/01/2010 SOHAN HINES, JAY Overton 465.9 ACUTE UPPER RESPIRATORY INFECTIONS OF UNSPECIFIED SITE 10/01/2010 REAL DO, SHAYNA K 465.9 ACUTE UPPER RESPIRATORY INFECTIONS OF UNSPECIFIED SITE 10/01/2010 REAL DO, SHAYNA K 465.9 ACUTE UPPER RESPIRATORY INFECTIONS OF UNSPECIFIED SITE 10/01/2010 REAL DO, SHAYNA K 465.9 ACUTE UPPER RESPIRATORY INFECTIONS OF UNSPECIFIED SITE 10/01/2010 JETHRO SHETH MD 465.9 ACUTE UPPER RESPIRATORY INFECTIONS OF UNSPECIFIED SITE 10/01/2010 JETHRO SHETH MD 465.9 ACUTE UPPER RESPIRATORY INFECTIONS OF UNSPECIFIED SITE 10/01/2010 REAL DO, SHAYNA K 465.9 ACUTE UPPER RESPIRATORY INFECTIONS OF UNSPECIFIED SITE 10/01/2010 HELLCRISTAL 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, KATLYN E 465.9 ACUTE UPPER RESPIRATORY INFECTIONS OF UNSPECIFIED SITE 10/01/2010 HELLWIG 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, KATLYN E 465.9 ACUTE UPPER RESPIRATORY INFECTIONS OF UNSPECIFIED SITE 10/01/2010 REAL DO, SHAYNA K 465.9 ACUTE UPPER RESPIRATORY INFECTIONS OF UNSPECIFIED SITE 10/01/2010 HELLWIG 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, KATLYN E 465.9 ACUTE UPPER RESPIRATORY INFECTIONS OF UNSPECIFIED SITE 10/01/2010 REAL DO, SHAYNA K 465.9 ACUTE UPPER RESPIRATORY INFECTIONS OF UNSPECIFIED SITE 10/01/2010 BRITT HINES, ROSSY Carl 465.9 ACUTE UPPER RESPIRATORY INFECTIONS OF UNSPECIFIED SITE 10/01/2010 HELLWIG 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, KATLYN E 465.9 ACUTE UPPER RESPIRATORY INFECTIONS OF UNSPECIFIED SITE 10/03/2010 AIMEE CONKLIN MD 780.79 feeling weak 10/03/2010 AIMEE CONKLIN MD 786.2 COUGH 10/03/2010 AIMEE CONKLIN MD 780.79 feeling weak 10/03/2010 AIMEE CONKLIN MD 786.2 COUGH 10/03/2010 780.79 feeling weak 10/03/2010 786.2 COUGH 10/03/2010 AIMEE CONKLIN MD 780.79 feeling weak 10/03/2010 AIMEE CONKLIN MD 786.2 COUGH 10/03/2010 780.79 feeling weak 10/03/2010 786.2 COUGH 10/03/2010 780.79 feeling weak 10/03/2010 786.2 COUGH 10/03/2010 780.79 feeling weak 10/03/2010 786.2 COUGH 10/03/2010 780.79 feeling weak 10/03/2010 786.2 COUGH 10/03/2010 780.79 feeling weak 10/03/2010 786.2 COUGH 10/03/2010 780.79 feeling weak 10/03/2010 786.2 COUGH 10/03/2010 780.79 feeling weak 10/03/2010 786.2 COUGH 10/03/2010 REAL DO, SHAYNA K 780.79 feeling weak 10/03/2010 REAL DO, SHAYNA K 786.2 COUGH 10/03/2010 REAL DO, SHAYNA K 780.79 feeling weak 10/03/2010 REAL DO, SHAYNA K 786.2 COUGH 10/03/2010 REAL DO, SHAYNA K 780.79 feeling weak 10/03/2010 REAL DO, SHAYNA K 786.2 COUGH 10/03/2010 REAL DO, SHAYNA K 780.79 feeling weak 10/03/2010 REAL DO, SHAYNA K 786.2 COUGH 10/03/2010 REAL DO, SHAYNA K 780.79 feeling weak 10/03/2010 REAL DO, SHAYNA K 786.2 COUGH 10/03/2010 REAL DO, SHAYNA K 780.79 feeling weak 10/03/2010 REAL DO, SHAYNA K 786.2 COUGH 10/03/2010 REAL DO, SHAYNA K 780.79 feeling weak 10/03/2010 REAL DO, SHAYNA K 786.2 COUGH 10/03/2010 REAL DO, SHAYNA K 780.79 feeling weak 10/03/2010 REAL DO, SHAYNA K 786.2 COUGH 10/03/2010 REAL DO, SHAYNA K 780.79 feeling weak 10/03/2010 REAL DO, SHAYNA K 786.2 COUGH 10/03/2010 REAL DO, SHAYNA K 780.79 feeling weak 10/03/2010 REAL DO, SHAYNA K 786.2 COUGH 10/03/2010 SOHAN HINES, JAY Overton 780.79 feeling weak 10/03/2010 SOHAN HINES, JAY Overton 786.2 COUGH 10/03/2010 REAL DO, SHAYNA K 780.79 feeling weak 10/03/2010 REAL DO, SHAYNA K 786.2 COUGH 10/03/2010 SOHAN HINES, JAY Overton 780.79 feeling weak 10/03/2010 SOHAN HINES, JAY Overton 786.2 COUGH 10/03/2010 REAL DO, SHAYNA K 780.79 feeling weak 10/03/2010 REAL DO, SHAYNA K 786.2 COUGH 10/03/2010 REAL DO, SHAYNA K 780.79 feeling weak 10/03/2010 REAL DO, SHAYNA K 786.2 COUGH 10/03/2010 REAL DO, SHAYNA K 780.79 feeling weak 10/03/2010 REAL DO, SHAYNA K 786.2 COUGH 10/03/2010 JETHRO SHETH MD 780.79 feeling weak 10/03/2010 JETHRO SHETH MD 786.2 COUGH 10/03/2010 JETHRO SHETH MD 780.79 feeling weak 10/03/2010 JETHRO SHETH MD 786.2 COUGH 10/03/2010 REAL DO, SHAYNA K 780.79 feeling weak 10/03/2010 REAL DO, SHAYNA K 786.2 COUGH 10/03/2010 HELJannethWIG 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, KATLYN E 780.79 feeling weak 10/03/2010 HEMANTH 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, KATLYN E 786.2 COUGH 10/03/2010 HEMANTH HARRINGTON KATLYN E 780.79 feeling weak 10/03/2010 HELLCRISTAL 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, KATLYN E 786.2 COUGH 10/03/2010 REAL DO, SHAYNA K 780.79 feeling weak 10/03/2010 REAL DO, SHAYNA K 786.2 COUGH 10/03/2010 HELLWIG 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, KATLYN E 780.79 feeling weak 10/03/2010 HELLWIG 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, KATLYN E 786.2 COUGH 10/03/2010 REAL DO, SHAYNA K 780.79 FEELING WEAK 10/03/2010 REAL DO, SHAYNA K 786.2 COUGH 10/03/2010 ROSSY DE LA TORRE MD 780.79 FEELING WEAK 10/03/2010 ROSSY DE LA TORRE MD 786.2 COUGH 10/03/2010 HELLCRISTAL 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, KATLYN E 780.79 FEELING WEAK 10/03/2010 HELVANESSA HARRINGTON KATLYN E 786.2 COUGH 02/20/2011 AIMEE CONKLIN MD 251.2 HYPOGLYCEMIA UNSPECIFIED 02/20/2011 AIMEE CONKLIN MD 251.2 HYPOGLYCEMIA UNSPECIFIED 02/20/2011 251.2 HYPOGLYCEMIA UNSPECIFIED 02/20/2011 AIMEE CONKLIN MD 251.2 HYPOGLYCEMIA UNSPECIFIED 02/20/2011 251.2 HYPOGLYCEMIA UNSPECIFIED 02/20/2011 251.2 HYPOGLYCEMIA UNSPECIFIED 02/20/2011 251.2 HYPOGLYCEMIA UNSPECIFIED 02/20/2011 251.2 HYPOGLYCEMIA UNSPECIFIED 02/20/2011 251.2 HYPOGLYCEMIA UNSPECIFIED 02/20/2011 251.2 HYPOGLYCEMIA UNSPECIFIED 02/20/2011 251.2 HYPOGLYCEMIA UNSPECIFIED 02/20/2011 REAL DO, SHAYNA K 251.2 HYPOGLYCEMIA UNSPECIFIED 02/20/2011 REAL DO, SHAYNA K 251.2 HYPOGLYCEMIA UNSPECIFIED 02/20/2011 REAL DO, SHAYNA K 251.2 HYPOGLYCEMIA UNSPECIFIED 02/20/2011 REAL DO, SHAYNA K 251.2 HYPOGLYCEMIA UNSPECIFIED 02/20/2011 REAL DO, SHAYNA K 251.2 HYPOGLYCEMIA UNSPECIFIED 02/20/2011 REAL DO, SHAYNA K 251.2 HYPOGLYCEMIA UNSPECIFIED 02/20/2011 REAL DO, SHAYNA K 251.2 HYPOGLYCEMIA UNSPECIFIED 02/20/2011 REAL DO, SHAYNA K 251.2 HYPOGLYCEMIA UNSPECIFIED 02/20/2011 REAL DO, SHAYNA K 251.2 HYPOGLYCEMIA UNSPECIFIED 02/20/2011 REAL DO, SHAYNA K 251.2 HYPOGLYCEMIA UNSPECIFIED 02/20/2011 JAY MENDEZ MD 251.2 HYPOGLYCEMIA UNSPECIFIED 02/20/2011 REAL DO, SHAYNA K 251.2 HYPOGLYCEMIA UNSPECIFIED 02/20/2011 JAY MENDEZ MD 251.2 HYPOGLYCEMIA UNSPECIFIED 02/20/2011 REAL DO, SHAYNA K 251.2 HYPOGLYCEMIA UNSPECIFIED 02/20/2011 REAL DO, SHAYNA K 251.2 HYPOGLYCEMIA UNSPECIFIED 02/20/2011 REAL DO, SHAYNA K 251.2 HYPOGLYCEMIA UNSPECIFIED 02/20/2011 JETHRO SHETH MD 251.2 HYPOGLYCEMIA UNSPECIFIED 02/20/2011 JETHRO SHETH MD 251.2 HYPOGLYCEMIA UNSPECIFIED 02/20/2011 REAL DO, SHAYNA K 251.2 HYPOGLYCEMIA UNSPECIFIED 02/20/2011 KATLYN SAXENA APRN E 251.2 HYPOGLYCEMIA UNSPECIFIED 02/20/2011 KATLYN SAXENA APRN E 251.2 HYPOGLYCEMIA UNSPECIFIED 02/20/2011 REAL DO, SHAYNA K 251.2 HYPOGLYCEMIA UNSPECIFIED 02/20/2011 KATLYN SAXENA APRN E 251.2 HYPOGLYCEMIA UNSPECIFIED 02/20/2011 REAL DO, SHAYNA K 251.2 HYPOGLYCEMIA UNSPECIFIED 02/20/2011 ROSSY DE LA TORRE MD 251.2 HYPOGLYCEMIA UNSPECIFIED 02/20/2011 KATLYN SAXENA APRN E 251.2 HYPOGLYCEMIA UNSPECIFIED 02/26/2011 AIMEE CONKLIN MD 380.4 IMPACTED CERUMEN 02/26/2011 AIMEE CONKLIN MD 780.4 lightheadedness 02/26/2011 AIMEE CONKLIN MD 380.4 IMPACTED CERUMEN 02/26/2011 AIMEE CONKLIN MD 780.4 lightheadedness 02/26/2011 380.4 IMPACTED CERUMEN 02/26/2011 780.4 lightheadedness 02/26/2011 AIMEE CONKLIN MD 380.4 IMPACTED CERUMEN 02/26/2011 AIMEE CONKLIN MD 780.4 lightheadedness 02/26/2011 380.4 IMPACTED CERUMEN 02/26/2011 780.4 lightheadedness 02/26/2011 380.4 IMPACTED CERUMEN 02/26/2011 780.4 lightheadedness 02/26/2011 380.4 IMPACTED CERUMEN 02/26/2011 780.4 lightheadedness 02/26/2011 380.4 IMPACTED CERUMEN 02/26/2011 780.4 lightheadedness 02/26/2011 380.4 IMPACTED CERUMEN 02/26/2011 780.4 lightheadedness 02/26/2011 380.4 IMPACTED CERUMEN 02/26/2011 780.4 lightheadedness 02/26/2011 380.4 IMPACTED CERUMEN 02/26/2011 780.4 lightheadedness 02/26/2011 REAL DO, SHAYNA K 380.4 IMPACTED CERUMEN 02/26/2011 REAL DO, SHAYNA K 780.4 lightheadedness 02/26/2011 REAL DO, SHAYNA K 380.4 IMPACTED CERUMEN 02/26/2011 REAL DO, SHAYNA K 780.4 lightheadedness 02/26/2011 REAL DO, SHAYNA K 380.4 IMPACTED CERUMEN 02/26/2011 REAL DO, SHAYNA K 780.4 lightheadedness 02/26/2011 REAL DO, SHAYNA K 380.4 IMPACTED CERUMEN 02/26/2011 REAL DO, SHAYNA K 780.4 lightheadedness 02/26/2011 REAL DO, SHAYNA K 380.4 IMPACTED CERUMEN 02/26/2011 REAL DO, SHAYNA K 780.4 lightheadedness 02/26/2011 REAL DO, SHAYNA K 380.4 IMPACTED CERUMEN 02/26/2011 REAL DO, SHAYNA K 780.4 lightheadedness 02/26/2011 REAL DO, SHAYNA K 380.4 IMPACTED CERUMEN 02/26/2011 REAL DO, SHAYNA K 780.4 lightheadedness 02/26/2011 REAL DO, SHAYNA K 380.4 IMPACTED CERUMEN 02/26/2011 REAL DO, SHAYNA K 780.4 lightheadedness 02/26/2011 REAL DO, SHAYNA K 380.4 IMPACTED CERUMEN 02/26/2011 REAL DO, SHAYNA K 780.4 lightheadedness 02/26/2011 REAL DO, SHAYNA K 380.4 IMPACTED CERUMEN 02/26/2011 REAL DO, SHAYNA K 780.4 lightheadedness 02/26/2011 SOHAN HINES, JAY Overton 380.4 IMPACTED CERUMEN 02/26/2011 SOHAN HINES, JAY M 780.4 lightheadedness 02/26/2011 REAL DO, SHAYNA K 380.4 IMPACTED CERUMEN 02/26/2011 REAL DO, SHAYNA K 780.4 lightheadedness 02/26/2011 SOHAN HINES, JAY M 380.4 IMPACTED CERUMEN 02/26/2011 SOHAN HINES, JAY Overton 780.4 lightheadedness 02/26/2011 REAL DO, SHAYNA K 380.4 IMPACTED CERUMEN 02/26/2011 REAL DO, SHAYNA K 780.4 lightheadedness 02/26/2011 REAL DO, SHAYNA K 380.4 IMPACTED CERUMEN 02/26/2011 REAL DO, SHAYNA K 780.4 lightheadedness 02/26/2011 REAL DO, SHAYNA K 380.4 IMPACTED CERUMEN 02/26/2011 REAL DO, SHAYNA K 780.4 lightheadedness 02/26/2011 DOMENIC HINES, JETHRO 380.4 IMPACTED CERUMEN 02/26/2011 JETHRO SHETH MD 780.4 lightheadedness 02/26/2011 JETHRO SHETH MD 380.4 IMPACTED CERUMEN 02/26/2011 JETHRO SHETH MD 780.4 lightheadedness 02/26/2011 REAL DO, SHAYNA K 380.4 IMPACTED CERUMEN 02/26/2011 REAL DO, SHAYNA K 780.4 lightheadedness 02/26/2011 ELOYCRISTAL 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, KATLYN E 380.4 IMPACTED CERUMEN 02/26/[address] 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, KATLYN E 780.4 lightheadedness 02/26/2011 ELOYCRISTAL 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, KATLYN E 380.4 IMPACTED CERUMEN 02/26/2011 ELOYCRISTAL 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, KATLYN E 780.4 lightheadedness 02/26/2011 REAL DO, SHAYAN K 380.4 IMPACTED CERUMEN 02/26/2011 REAL DO, SHAYNA K 780.4 lightheadedness 02/26/[address] 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, KATLYN E 380.4 IMPACTED CERUMEN 02/26/2011 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 E 780.4 lightheadedness 02/26/2011 REAL DO, SHAYNA K 380.4 IMPACTED CERUMEN 02/26/2011 REAL DO, SHAYNA K 780.4 LIGHTHEADEDNESS 02/26/2011 ROSSY DE LA TORRE MD N 380.4 IMPACTED CERUMEN 02/26/2011 ROSSY DE LA TORRE MD N 780.4 LIGHTHEADEDNESS 02/26/2011 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 E 380.4 IMPACTED CERUMEN 02/26/2011 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 E 780.4 LIGHTHEADEDNESS 05/27/2011 AIMEE OCNKLIN MD 724.3 SCIATICA 05/27/2011 AIMEE CONKLIN MD 724.3 SCIATICA 05/27/2011 724.3 SCIATICA 05/27/2011 AIMEE CONKLIN MD 724.3 SCIATICA 05/27/2011 724.3 SCIATICA 05/27/2011 724.3 SCIATICA 05/27/2011 724.3 SCIATICA 05/27/2011 724.3 SCIATICA 05/27/2011 724.3 SCIATICA 05/27/2011 724.3 SCIATICA 05/27/2011 724.3 SCIATICA 05/27/2011 REAL DO, SHAYNA K 724.3 SCIATICA 05/27/2011 REAL DO, SHAYNA K 724.3 SCIATICA 05/27/2011 REAL DO, SHAYNA K 724.3 SCIATICA 05/27/2011 REAL DO, SHAYNA K 724.3 SCIATICA 05/27/2011 REAL DO, SHAYNA K 724.3 SCIATICA 05/27/2011 REAL DO, SHAYNA K 724.3 SCIATICA 05/27/2011 REAL DO, SHAYNA K 724.3 SCIATICA 05/27/2011 REAL DO, SHAYNA K 724.3 SCIATICA 05/27/2011 REAL DO, SHAYNA K 724.3 SCIATICA 05/27/2011 REAL DO, SHAYNA K 724.3 SCIATICA 05/27/2011 SOHAN HINES, JAY Overton 724.3 SCIATICA 05/27/2011 REAL DO, SHAYNA K 724.3 SCIATICA 05/27/2011 SOHAN HINES, JAY Overton 724.3 SCIATICA 05/27/2011 REAL DO, SHAYNA K 724.3 SCIATICA 05/27/2011 REAL DO, SHAYNA K 724.3 SCIATICA 05/27/2011 REAL DO, SHAYNA K 724.3 SCIATICA 05/27/2011 JETHRO SHETH MD 724.3 SCIATICA 05/27/2011 JETHRO SHETH MD 724.3 SCIATICA 05/27/2011 REAL DO, SHAYNA K 724.3 SCIATICA 05/27/2011 HEMANTH HARRINGTON KATLYN E 724.3 SCIATICA 05/27/2011 HEMANTH HARRINGTON KATLYN E 724.3 SCIATICA 05/27/2011 REAL DO, SHAYNA K 724.3 SCIATICA 05/27/2011 HEMANTH HARRINGTON KATLYN E 724.3 SCIATICA 05/27/2011 REAL DO, SHAYNA K 724.3 SCIATICA 05/27/2011 BRITT HINES, ROSSY Carl 724.3 SCIATICA 05/27/2011 HEMANTH HARRINGTON KATLYN E 724.3 SCIATICA 06/30/2011 AIMEE CONKLIN MD 250.00 DIABETES MELLITUS 06/30/2011 AIMEE CONKLIN MD 250.00 DIABETES MELLITUS 06/30/2011 250.00 DIABETES MELLITUS TYPE 2 - UNCOMPLICATED, CONTROLLED 06/30/2011 AIMEE CONKLIN MD 250.00 DIABETES MELLITUS TYPE 2 - UNCOMPLICATED, CONTROLLED 06/30/2011 250.00 DIABETES MELLITUS TYPE 2 - UNCOMPLICATED, CONTROLLED 06/30/2011 250.00 DIABETES MELLITUS TYPE 2 - UNCOMPLICATED, CONTROLLED 06/30/2011 250.00 DIABETES MELLITUS TYPE 2 - UNCOMPLICATED, CONTROLLED 06/30/2011 250.00 DIABETES MELLITUS TYPE 2 - UNCOMPLICATED, CONTROLLED 06/30/2011 250.00 DIABETES MELLITUS TYPE 2 - UNCOMPLICATED, CONTROLLED 06/30/2011 250.00 DIABETES MELLITUS TYPE 2 - UNCOMPLICATED, CONTROLLED 06/30/2011 250.00 DIABETES MELLITUS TYPE 2 - UNCOMPLICATED, CONTROLLED 06/30/2011 REAL DO, SHAYNA K 250.00 DIABETES MELLITUS TYPE 2 - UNCOMPLICATED, CONTROLLED 06/30/2011 REAL DO, SHAYNA K 250.00 DIABETES MELLITUS TYPE 2 - UNCOMPLICATED, CONTROLLED 06/30/2011 REAL DO, SHAYNA K 250.00 DIABETES MELLITUS TYPE 2 - UNCOMPLICATED, CONTROLLED 06/30/2011 REAL DO, SHAYNA K 250.00 DIABETES MELLITUS TYPE 2 - UNCOMPLICATED, CONTROLLED 06/30/2011 REAL DO, SHAYNA K 250.00 DIABETES MELLITUS TYPE 2 - UNCOMPLICATED, CONTROLLED 06/30/2011 REAL DO, SHAYNA K 250.00 DIABETES MELLITUS TYPE 2 - UNCOMPLICATED, CONTROLLED 06/30/2011 REAL DO, SHAYNA K 250.00 DIABETES MELLITUS TYPE 2 - UNCOMPLICATED, CONTROLLED 06/30/2011 REAL DO, SHAYNA K 250.00 DIABETES MELLITUS TYPE 2 - UNCOMPLICATED, CONTROLLED 06/30/2011 REAL DO, SHAYNA K 250.00 DIABETES MELLITUS TYPE 2 - UNCOMPLICATED, CONTROLLED 06/30/2011 REAL DO, SHAYNA K 250.00 DIABETES MELLITUS TYPE 2 - UNCOMPLICATED, CONTROLLED 06/30/2011 SOHAN HINES, JAY Overton 250.00 DIABETES MELLITUS TYPE 2 - UNCOMPLICATED, CONTROLLED 06/30/2011 REAL DO, SHAYNA K 250.00 DIABETES MELLITUS TYPE 2 - UNCOMPLICATED, CONTROLLED 06/30/2011 SOHAN HINES, JAY Overton 250.00 DIABETES MELLITUS TYPE 2 - UNCOMPLICATED, CONTROLLED 06/30/2011 REAL DO, SHAYNA K 250.00 DIABETES MELLITUS TYPE 2 - UNCOMPLICATED, CONTROLLED 06/30/2011 REAL DO, SHAYNA K 250.00 DIABETES MELLITUS TYPE 2 - UNCOMPLICATED, CONTROLLED 06/30/2011 REAL DO, SHAYNA K 250.00 DIABETES MELLITUS TYPE 2 - UNCOMPLICATED, CONTROLLED 06/30/2011 JETHRO SHETH MD 250.00 DIABETES MELLITUS TYPE 2 - UNCOMPLICATED, CONTROLLED 06/30/2011 JETHRO SHETH MD 250.00 DIABETES MELLITUS TYPE 2 - UNCOMPLICATED, CONTROLLED 06/30/2011 REAL DO, SHAYNA K 250.00 DIABETES MELLITUS TYPE 2 - UNCOMPLICATED, CONTROLLED 06/30/2011 [employer] 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, KATLYN E 250.00 DIABETES MELLITUS TYPE 2 - UNCOMPLICATED, CONTROLLED 06/30/2011 REAL DO, SHAYNA K 250.00 DIABETES MELLITUS TYPE 2 - UNCOMPLICATED, CONTROLLED 06/30/[address] [facility] [address] [address] 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, KATLYN E 250.00 DIABETES MELLITUS TYPE 2 - UNCOMPLICATED, CONTROLLED 06/30/2011 REAL DO, SHAYNA K 250.00 DIABETES MELLITUS TYPE 2 - UNCOMPLICATED, CONTROLLED 06/30/2011 BRITT HINES, ROSSY N 250.00 DIABETES MELLITUS TYPE 2 - UNCOMPLICATED, CONTROLLED 06/30/[address] [facility] [address] 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, KATLYN E 250.00 DIABETES MELLITUS TYPE 2 - UNCOMPLICATED, CONTROLLED 11/06/2011 AIMEE CONKLIN MD 780.99 loss of pleasure from usual activities (anhedonia) 11/06/2011 AIMEE CONKLIN MD 780.99 loss of pleasure from usual activities (anhedonia) 11/06/2011 780.99 loss of pleasure from usual activities (anhedonia) 11/06/2011 AIMEE CONKLIN MD 780.99 loss of pleasure from usual activities (anhedonia) 11/06/2011 780.99 loss of pleasure from usual activities (anhedonia) 11/06/2011 780.99 loss of pleasure from usual activities (anhedonia) 11/06/2011 780.99 loss of pleasure from usual activities (anhedonia) 11/06/2011 780.99 loss of pleasure from usual activities (anhedonia) 11/06/2011 780.99 loss of pleasure from usual activities (anhedonia) 11/06/2011 780.99 loss of pleasure from usual activities (anhedonia) 11/06/2011 780.99 loss of pleasure from usual activities (anhedonia) 11/06/2011 REAL DO, SHAYNA K 780.99 loss of pleasure from usual activities (anhedonia) 11/06/2011 REAL DO, SHAYNA K 780.99 loss of pleasure from usual activities (anhedonia) 11/06/2011 REAL DO, SHAYNA K 780.99 loss of pleasure from usual activities (anhedonia) 11/06/2011 REAL DO, SHAYNA K 780.99 loss of pleasure from usual activities (anhedonia) 11/06/2011 REAL DO, SHAYNA K 780.99 loss of pleasure from usual activities (anhedonia) 11/06/2011 REAL DO, SHAYNA K 780.99 loss of pleasure from usual activities (anhedonia) 11/06/2011 REAL DO, SHAYNA K 780.99 loss of pleasure from usual activities (anhedonia) 11/06/2011 REAL DO, SHAYNA K 780.99 loss of pleasure from usual activities (anhedonia) 11/06/2011 REAL DO, SHAYNA K 780.99 loss of pleasure from usual activities (anhedonia) 11/06/2011 REAL DO, SHAYNA K 780.99 loss of pleasure from usual activities (anhedonia) 11/06/2011 JAY MENDEZ MD 780.99 loss of pleasure from usual activities (anhedonia) 11/06/2011 REAL DO, SHAYNA K 780.99 loss of pleasure from usual activities (anhedonia) 11/06/2011 JAY MENDEZ MD 780.99 loss of pleasure from usual activities (anhedonia) 11/06/2011 REAL DO, SHAYNA K 780.99 loss of pleasure from usual activities (anhedonia) 11/06/2011 REAL DO, SHAYNA K 780.99 loss of pleasure from usual activities (anhedonia) 11/06/2011 REAL DO, SHAYNA K 780.99 loss of pleasure from usual activities (anhedonia) 11/06/2011 JETHRO SHETH MD 780.99 loss of pleasure from usual activities (anhedonia) 11/06/2011 JETHRO SHETH MD 780.99 loss of pleasure from usual activities (anhedonia) 11/06/2011 REAL DO, SHAYNA K 780.99 loss of pleasure from usual activities (anhedonia) 11/06/2011 KATLYN SAXENA APRN 780.99 loss of pleasure from usual activities (anhedonia) 11/06/2011 KATLYN SAXENA APRN E 780.99 loss of pleasure from usual activities (anhedonia) 11/06/2011 REAL DO, SHAYNA K 780.99 loss of pleasure from usual activities (anhedonia) 11/06/2011 KATLYN SAXENA APRN 780.99 loss of pleasure from usual activities (anhedonia) 11/06/2011 REAL DO, SHAYNA K 780.99 LOSS OF PLEASURE FROM USUAL ACTIVITIES (ANHEDONIA) 11/06/2011 ROSSY DE LA TORRE MD 780.99 LOSS OF PLEASURE FROM USUAL ACTIVITIES (ANHEDONIA) 11/06/2011 HELLWIG 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, KATLYN E 780.99 LOSS OF PLEASURE FROM USUAL ACTIVITIES (ANHEDONIA) 12/29/2011 AIMEE CONKLIN MD 272.4 HYPERLIPIDEMIA 12/29/2011 AIMEE CONKLIN MD 272.4 HYPERLIPIDEMIA 12/29/2011 272.4 HYPERLIPIDEMIA 12/29/2011 AIMEE CONKLIN MD 272.4 HYPERLIPIDEMIA 12/29/2011 272.4 HYPERLIPIDEMIA 12/29/2011 272.4 HYPERLIPIDEMIA 12/29/2011 272.4 HYPERLIPIDEMIA 12/29/2011 272.4 HYPERLIPIDEMIA 12/29/2011 272.4 HYPERLIPIDEMIA 12/29/2011 272.4 HYPERLIPIDEMIA 12/29/2011 272.4 HYPERLIPIDEMIA 12/29/2011 REAL DO, SHAYNA K 272.4 HYPERLIPIDEMIA 12/29/2011 REAL DO, SHAYNA K 272.4 HYPERLIPIDEMIA 12/29/2011 REAL DO, SHAYNA K 272.4 HYPERLIPIDEMIA 12/29/2011 REAL DO, SHAYNA K 272.4 HYPERLIPIDEMIA 12/29/2011 REAL DO, SHAYNA K 272.4 HYPERLIPIDEMIA 12/29/2011 REAL DO, SHAYNA K 272.4 HYPERLIPIDEMIA 12/29/2011 REAL DO, SHAYNA K 272.4 HYPERLIPIDEMIA 12/29/2011 REAL DO, SHAYNA K 272.4 HYPERLIPIDEMIA 12/29/2011 REAL DO, SHAYNA K 272.4 HYPERLIPIDEMIA 12/29/2011 REAL DO, SHAYNA K 272.4 HYPERLIPIDEMIA 12/29/2011 SOHAN HINES, JAY M 272.4 HYPERLIPIDEMIA 12/29/2011 REAL DO, SHAYNA K 272.4 HYPERLIPIDEMIA 12/29/2011 SOHAN HINES, JAY M 272.4 HYPERLIPIDEMIA 12/29/2011 RELA DO, SHAYNA K 272.4 HYPERLIPIDEMIA 12/29/2011 REAL DO, SHAYNA K 272.4 HYPERLIPIDEMIA 12/29/2011 REAL DO, SHAYNA K 272.4 HYPERLIPIDEMIA 12/29/2011 JETHRO SHETH MD 272.4 HYPERLIPIDEMIA 12/29/2011 JETHRO SHETH MD 272.4 HYPERLIPIDEMIA 12/29/2011 REAL DO, SHAYNA K 272.4 HYPERLIPIDEMIA 12/29/2011 JAMEL SAXENA APRNSIE E 272.4 HYPERLIPIDEMIA 12/29/2011 JAIME SAXENA APRNE E 272.4 HYPERLIPIDEMIA 12/29/2011 REAL DO, SHAYNA K 272.4 HYPERLIPIDEMIA 12/29/2011 JAMEL SAXENA APRNSIE E 272.4 HYPERLIPIDEMIA 12/29/2011 REAL DO, SHAYNA K 272.4 HYPERLIPIDEMIA 12/29/2011 ROSSY DE LA TORRE MD 272.4 HYPERLIPIDEMIA 12/29/2011 KATLYN SAXENA APRN 272.4 HYPERLIPIDEMIA 04/12/2012 AIMEE CONKLIN MD 401.9 HYPERTENSION (SYSTEMIC) 04/12/2012 AIMEE CONKLIN MD 799.21 feeling nervous 04/12/2012 AIMEE CONKLIN MD V76.10 visit for: screening exam malignant neoplasm breast 04/12/2012 AIMEE CONKLIN MD 401.9 HYPERTENSION (SYSTEMIC) 04/12/2012 AIMEE CONKLIN MD 799.21 feeling nervous 04/12/2012 AIMEE CONKLIN MD V76.10 visit for: screening exam malignant neoplasm breast 04/12/2012 401.9 ESSENTIAL HYPERTENSION 04/12/2012 799.21 feeling nervous 04/12/2012 V76.10 visit for: screening exam malignant neoplasm breast 04/12/2012 AIMEE CONKLIN MD 401.9 ESSENTIAL HYPERTENSION 04/12/2012 AIMEE CONKLIN MD 799.21 feeling nervous 04/12/2012 AIMEE CONKLIN MD V76.10 visit for: screening exam malignant neoplasm breast 04/12/2012 401.9 ESSENTIAL HYPERTENSION 04/12/2012 799.21 feeling nervous 04/12/2012 V76.10 visit for: screening exam malignant neoplasm breast 04/12/2012 401.9 ESSENTIAL HYPERTENSION 04/12/2012 799.21 feeling nervous 04/12/2012 V76.10 visit for: screening exam malignant neoplasm breast 04/12/2012 401.9 ESSENTIAL HYPERTENSION 04/12/2012 799.21 feeling nervous 04/12/2012 V76.10 visit for: screening exam malignant neoplasm breast 04/12/2012 401.9 ESSENTIAL HYPERTENSION 04/12/2012 799.21 feeling nervous 04/12/2012 V76.10 visit for: screening exam malignant neoplasm breast 04/12/2012 401.9 ESSENTIAL HYPERTENSION 04/12/2012 799.21 feeling nervous 04/12/2012 V76.10 visit for: screening exam malignant neoplasm breast 04/12/2012 401.9 ESSENTIAL HYPERTENSION 04/12/2012 799.21 feeling nervous 04/12/2012 V76.10 visit for: screening exam malignant neoplasm breast 04/12/2012 401.9 ESSENTIAL HYPERTENSION 04/12/2012 799.21 feeling nervous 04/12/2012 V76.10 visit for: screening exam malignant neoplasm breast 04/12/2012 REAL DO, SHAYNA K 401.9 ESSENTIAL HYPERTENSION 04/12/2012 REAL DO, SHAYNA K 799.21 feeling nervous 04/12/2012 REAL DO, SHAYNA K V76.10 visit for: screening exam malignant neoplasm breast 04/12/2012 REAL DO, SHAYNA K 401.9 ESSENTIAL HYPERTENSION 04/12/2012 REAL DO, SHAYNA K 799.21 feeling nervous 04/12/2012 REAL DO, SHAYNA K V76.10 visit for: screening exam malignant neoplasm breast 04/12/2012 REAL DO, SHAYNA K 401.9 ESSENTIAL HYPERTENSION 04/12/2012 REAL DO, SHAYNA K 799.21 feeling nervous 04/12/2012 REAL DO, SHAYNA K V76.10 visit for: screening exam malignant neoplasm breast 04/12/2012 REAL DO, SHAYNA K 401.9 ESSENTIAL HYPERTENSION 04/12/2012 REAL DO, SHAYNA K 799.21 feeling nervous 04/12/2012 REAL DO, SAHYNA K V76.10 visit for: screening exam malignant neoplasm breast 04/12/2012 REAL DO, SHAYNA K 401.9 ESSENTIAL HYPERTENSION 04/12/2012 REAL DO, SHAYNA K 799.21 feeling nervous 04/12/2012 REAL DO, SHAYNA K V76.10 visit for: screening exam malignant neoplasm breast 04/12/2012 REAL DO, SHAYNA K 401.9 ESSENTIAL HYPERTENSION 04/12/2012 REAL DO, SHAYNA K 799.21 feeling nervous 04/12/2012 REAL DO, SHAYNA K V76.10 visit for: screening exam malignant neoplasm breast 04/12/2012 REAL DO, SHAYNA K 401.9 ESSENTIAL HYPERTENSION 04/12/2012 REAL DO, SHAYNA K 799.21 feeling nervous 04/12/2012 REAL DO, SHAYNA K V76.10 visit for: screening exam malignant neoplasm breast 04/12/2012 REAL DO, SHAYNA K 401.9 ESSENTIAL HYPERTENSION 04/12/2012 REAL DO, SHAYAN K 799.21 feeling nervous 04/12/2012 REAL DO, SHAYNA K V76.10 visit for: screening exam malignant neoplasm breast 04/12/2012 REAL DO, SHAYNA K 401.9 ESSENTIAL HYPERTENSION 04/12/2012 REAL DO, SHAYNA K 799.21 feeling nervous 04/12/2012 REAL DO, SHAYNA K V76.10 visit for: screening exam malignant neoplasm breast 04/12/2012 REAL DO, SHAYNA K 401.9 ESSENTIAL HYPERTENSION 04/12/2012 REAL DO, SHAYNA K 799.21 feeling nervous 04/12/2012 REAL DO, SHAYNA K V76.10 visit for: screening exam malignant neoplasm breast 04/12/2012 SOHAN HINES, JAY Overton 401.9 ESSENTIAL HYPERTENSION 04/12/2012 SOHAN HINES, JAY Overton 799.21 feeling nervous 04/12/2012 SOHAN HINES, JAY Overton V76.10 visit for: screening exam malignant neoplasm breast 04/12/2012 REAL DO, SHAYNA K 401.9 ESSENTIAL HYPERTENSION 04/12/2012 REAL DO, SHAYNA K 799.21 feeling nervous 04/12/2012 REAL DO, SHAYNA K V76.10 visit for: screening exam malignant neoplasm breast 04/12/2012 SOHAN HINES, JAY Overton 401.9 ESSENTIAL HYPERTENSION 04/12/2012 SOHAN HINES, JAY Overton 799.21 feeling nervous 04/12/2012 SOHAN HINES, JAY Overton V76.10 visit for: screening exam malignant neoplasm breast 04/12/2012 REAL DO, SHAYNA K 401.9 ESSENTIAL HYPERTENSION 04/12/2012 REAL DO, SHAYNA K 799.21 feeling nervous 04/12/2012 REAL DO, SHAYNA K V76.10 visit for: screening exam malignant neoplasm breast 04/12/2012 REAL DO, SHAYNA K 401.9 ESSENTIAL HYPERTENSION 04/12/2012 REAL DO, SHAYNA K 799.21 feeling nervous 04/12/2012 REAL DO, SHAYNA K V76.10 visit for: screening exam malignant neoplasm breast 04/12/2012 REAL DO, SHAYNA K 401.9 ESSENTIAL HYPERTENSION 04/12/2012 REAL DO, SHAYNA K 799.21 feeling nervous 04/12/2012 REAL DO, SHAYNA K V76.10 visit for: screening exam malignant neoplasm breast 04/12/2012 JETHRO SHETH MD 401.9 ESSENTIAL HYPERTENSION 04/12/2012 JETHRO SHETH MD 799.21 feeling nervous 04/12/2012 JETHRO SHETH MD V76.10 visit for: screening exam malignant neoplasm breast 04/12/2012 JETHRO SHETH MD 401.9 ESSENTIAL HYPERTENSION 04/12/2012 JETHRO SHETH MD 799.21 feeling nervous 04/12/2012 JETHRO SHETH MD V76.10 visit for: screening exam malignant neoplasm breast 04/12/2012 RELA DO, SHAYNA K 401.9 ESSENTIAL HYPERTENSION 04/12/2012 REAL DO, SHAYNA K 799.21 feeling nervous 04/12/2012 REAL DO, SHAYNA K V76.10 visit for: screening exam malignant neoplasm breast 04/12/2012 HELLWIG 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, KATLYN E 401.9 ESSENTIAL HYPERTENSION 04/12/2012 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 E 799.21 feeling nervous 04/12/2012 [facility] 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, KATLYN E V76.10 visit for: screening exam malignant neoplasm breast 04/12/2012 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 E 401.9 ESSENTIAL HYPERTENSION 04/12/2012 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 E 799.21 feeling nervous 04/12/2012 [facility] LEN KATLYN E V76.10 visit for: screening exam malignant neoplasm breast 04/12/2012 REAL DO, SHAYNA K 401.9 ESSENTIAL HYPERTENSION 04/12/2012 REAL DO, SHAYNA K 799.21 feeling nervous 04/12/2012 REAL DO, SHAYNA K V76.10 visit for: screening exam malignant neoplasm breast 04/12/[address] [facility] KAT[facility] E 401.9 ESSENTIAL HYPERTENSION 04/12/2012 [facility] LEN, KATLYN E 799.21 feeling nervous 04/12/2012 [facility] LEN KATLYN E V76.10 visit for: screening exam malignant neoplasm breast 04/12/2012 REAL DO, SHAYNA K 401.9 ESSENTIAL HYPERTENSION 04/12/2012 REAL DO, SHAYNA K 799.21 FEELING NERVOUS 04/12/2012 REAL DO, SHAYNA K V76.10 VISIT FOR: SCREENING EXAM MALIGNANT NEOPLASM BREAST 04/12/2012 ROSSY DE LA TORRE MD 401.9 ESSENTIAL HYPERTENSION 04/12/2012 ROSSY DE LA TORRE MD 799.21 FEELING NERVOUS 04/12/2012 ROSSY DE LA TORRE MD V76.10 VISIT FOR: SCREENING EXAM MALIGNANT NEOPLASM BREAST 04/12/2012 HELLCRISTAL 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, KATLYN E 401.9 ESSENTIAL HYPERTENSION 04/12/2012 [facility] LEN KATLYN E 799.21 FEELING NERVOUS 04/12/2012 ELOYJannethCRISTAL SANTAMARIANKATLYN V76.10 VISIT FOR: SCREENING EXAM MALIGNANT NEOPLASM BREAST 04/22/2012 AIMEE CONKLIN MD 719.46 PAIN IN JOINT INVOLVING LOWER LEG 04/22/2012 AIMEE CONKLIN MD 719.46 PAIN IN JOINT INVOLVING LOWER LEG 04/22/2012 719.46 PAIN IN JOINT INVOLVING LOWER LEG 04/22/2012 AIMEE CONKLIN MD 719.46 PAIN IN JOINT INVOLVING LOWER LEG 04/22/2012 719.46 PAIN IN JOINT INVOLVING LOWER LEG 04/22/2012 719.46 PAIN IN JOINT INVOLVING LOWER LEG 04/22/2012 719.46 joint pain in both knees 04/22/2012 719.46 joint pain in both knees 04/22/2012 719.46 joint pain in both knees 04/22/2012 719.46 joint pain in both knees 04/22/2012 719.46 joint pain in both knees 04/22/2012 REAL DO, SHAYNA K 719.46 joint pain in both knees 04/22/2012 REAL DO, SHAYNA K 719.46 joint pain in both knees 04/22/2012 REAL DO, SHAYNA K 719.46 joint pain in both knees 04/22/2012 REAL DO, SHAYNA K 719.46 joint pain in both knees 04/22/2012 REAL DO, SHAYNA K 719.46 joint pain in both knees 04/22/2012 REAL DO, SHAYNA K 719.46 joint pain in both knees 04/22/2012 REAL DO, SHAYNA K 719.46 joint pain in both knees 04/22/2012 REAL DO, SHAYNA K 719.46 joint pain in both knees 04/22/2012 REAL DO, SHAYNA K 719.46 joint pain in both knees 04/22/2012 REAL DO, SHAYNA K 719.46 joint pain in both knees 04/22/2012 JAY MENDEZ MD 719.46 joint pain in both knees 04/22/2012 REAL DO, SHAYNA K 719.46 joint pain in both knees 04/22/2012 JAY MENDEZ MD 719.46 joint pain in both knees 04/22/2012 REAL DO, SHAYNA K 719.46 joint pain in both knees 04/22/2012 REAL DO, SHAYNA K 719.46 joint pain in both knees 04/22/2012 REAL DO, SHAYNA K 719.46 joint pain in both knees 04/22/2012 JETHRO SHETH MD 719.46 joint pain in both knees 04/22/2012 JETHRO SHETH MD 719.46 joint pain in both knees 04/22/2012 REAL DO, SHAYNA K 719.46 joint pain in both knees 04/22/2012 KATLYN SAXENA APRN E 719.46 joint pain in both knees 04/22/2012 JAMEL SAXENA APRNSIE E 719.46 joint pain in both knees 04/22/2012 REAL DO, SHAYNA K 719.46 joint pain in both knees 04/22/2012 HELKATLYN MENDEZ APRN E 719.46 joint pain in both knees 04/22/2012 REAL DO, SHAYNA K 719.46 JOINT PAIN IN BOTH KNEES 04/22/2012 BRITT HINES, ROSSY Carl 719.46 JOINT PAIN IN BOTH KNEES 04/22/2012 KATLYN SAXENA APRN E 719.46 JOINT PAIN IN BOTH KNEES 05/14/2012 AIMEE CONKLIN MD 793.80 ABNORMAL MAMMOGRAM 05/14/2012 AIMEE CONKLIN MD 793.80 ABNORMAL MAMMOGRAM 05/14/2012 793.80 ABNORMAL MAMMOGRAM 05/14/2012 AIMEE CONKLIN MD 793.80 ABNORMAL MAMMOGRAM 05/14/2012 793.80 ABNORMAL MAMMOGRAM 05/14/2012 793.80 ABNORMAL MAMMOGRAM 05/14/2012 793.80 ABNORMAL MAMMOGRAM 05/14/2012 793.80 ABNORMAL MAMMOGRAM 05/14/2012 793.80 ABNORMAL MAMMOGRAM 05/14/2012 793.80 ABNORMAL MAMMOGRAM 05/14/2012 793.80 ABNORMAL MAMMOGRAM 05/14/2012 REAL DO, SHAYNA K 793.80 ABNORMAL MAMMOGRAM 05/14/2012 REAL DO, SHAYNA K 793.80 ABNORMAL MAMMOGRAM 05/14/2012 REAL DO SHAYNA K 793.80 ABNORMAL MAMMOGRAM 05/14/2012 REAL DO, SHAYNA K 793.80 ABNORMAL MAMMOGRAM 05/14/2012 REAL DO, SHAYNA K 793.80 ABNORMAL MAMMOGRAM 05/14/2012 REAL DO, SHAYNA K 793.80 ABNORMAL MAMMOGRAM 05/14/2012 REAL DO, SHAYNA K 793.80 ABNORMAL MAMMOGRAM 05/14/2012 REAL DO, SHAYNA K 793.80 ABNORMAL MAMMOGRAM 05/14/2012 REAL DO, SHAYNA K 793.80 ABNORMAL MAMMOGRAM 05/14/2012 REAL DO, SHAYNA K 793.80 ABNORMAL MAMMOGRAM 05/14/2012 SOHAN HINES, JAY Overton 793.80 ABNORMAL MAMMOGRAM 05/14/2012 REAL DO, SHAYNA K 793.80 ABNORMAL MAMMOGRAM 05/14/2012 SOHAN HINES, JAY Overton 793.80 ABNORMAL MAMMOGRAM 05/14/2012 REAL DO, SHAYNA K 793.80 ABNORMAL MAMMOGRAM 05/14/2012 REAL DO, SHAYNA K 793.80 ABNORMAL MAMMOGRAM 05/14/2012 REAL DO, SHAYNA K 793.80 ABNORMAL MAMMOGRAM 05/14/2012 JETHRO SHETH MD 793.80 ABNORMAL MAMMOGRAM 05/14/2012 JETHRO SHETH MD 793.80 ABNORMAL MAMMOGRAM 05/14/2012 REAL DO, SHAYNA K 793.80 ABNORMAL MAMMOGRAM 05/14/2012 HEMANTH [facility] KATLYN E 793.80 ABNORMAL MAMMOGRAM 05/14/2012 HELJannethWIG LEN KATLYN E 793.80 ABNORMAL MAMMOGRAM 05/14/2012 REAL DO, SHAYNA K 793.80 ABNORMAL MAMMOGRAM 05/14/2012 HELVANESSA [facility] KATLYN E 793.80 ABNORMAL MAMMOGRAM 05/14/2012 REAL DO, SHAYNA K 793.80 ABNORMAL MAMMOGRAM 05/14/2012 BRITT HINES, ROSSY Carl 793.80 ABNORMAL MAMMOGRAM 05/14/[address] [facility] APRNSIE E 793.80 ABNORMAL MAMMOGRAM 12/06/2012 338.29 CHRONIC PAIN 12/06/2012 799.22 Mood Irritable 12/06/2012 338.29 CHRONIC PAIN 12/06/2012 799.22 Mood Irritable 12/06/2012 338.29 CHRONIC PAIN 12/06/2012 799.22 Mood Irritable 12/06/2012 338.29 CHRONIC PAIN 12/06/2012 799.22 Mood Irritable 12/06/2012 338.29 CHRONIC PAIN 12/06/2012 799.22 Mood Irritable 12/06/2012 338.29 CHRONIC PAIN 12/06/2012 799.22 Mood Irritable 12/06/2012 REAL DO, SHAYNA K 338.29 CHRONIC PAIN 12/06/2012 REAL DO, SHAYNA K 799.22 Mood Irritable 12/06/2012 REAL DO, SHAYNA K 338.29 CHRONIC PAIN 12/06/2012 REAL DO, SHAYNA K 799.22 Mood Irritable 12/06/2012 REAL DO, SHAYNA K 338.29 CHRONIC PAIN 12/06/2012 REAL DO, SHAYNA K 799.22 Mood Irritable 12/06/2012 REAL DO, SHAYNA K 338.29 CHRONIC PAIN 12/06/2012 REAL DO, SHAYNA K 799.22 Mood Irritable 12/06/2012 REAL DO, SHAYNA K 338.29 CHRONIC PAIN 12/06/2012 REAL DO, SHAYNA K 799.22 Mood Irritable 12/06/2012 REAL DO, SHAYNA K 338.29 CHRONIC PAIN 12/06/2012 REAL DO, SHAYNA K 799.22 Mood Irritable 12/06/2012 REAL DO, SHAYNA K 338.29 CHRONIC PAIN 12/06/2012 REAL DO, SHAYNA K 799.22 Mood Irritable 12/06/2012 REAL DO, SHAYNA K 338.29 CHRONIC PAIN 12/06/2012 REAL DO, SHAYNA K 799.22 Mood Irritable 12/06/2012 REAL DO, SHAYNA K 338.29 CHRONIC PAIN 12/06/2012 REAL DO, SHAYNA K 799.22 Mood Irritable 12/06/2012 REAL DO, SHAYNA K 338.29 CHRONIC PAIN 12/06/2012 REAL DO, SHAYNA K 799.22 Mood Irritable 12/06/2012 SOHAN HINES, JAY Overton 338.29 CHRONIC PAIN 12/06/2012 SOHAN HINES, JAY Overton 799.22 Mood Irritable 12/06/2012 REAL DO, SHAYNA K 338.29 CHRONIC PAIN 12/06/2012 REAL DO, SHAYNA K 799.22 Mood Irritable 12/06/2012 SOHAN HINES, JAY Overton 338.29 CHRONIC PAIN 12/06/2012 SOHAN HINES, JAY Overton 799.22 Mood Irritable 12/06/2012 REAL DO, SHAYNA K 338.29 CHRONIC PAIN 12/06/2012 REAL DO, SHAYNA K 799.22 Mood Irritable 12/06/2012 REAL DO, SHAYNA K 338.29 CHRONIC PAIN 12/06/2012 REAL DO, SHAYNA K 799.22 Mood Irritable 12/06/2012 REAL DO, SHAYNA K 338.29 CHRONIC PAIN 12/06/2012 REAL DO, SHAYNA K 799.22 Mood Irritable 12/06/2012 JETHRO SHETH MD 338.29 CHRONIC PAIN 12/06/2012 JETHRO SHETH MD 799.22 Mood Irritable 12/06/2012 JETHRO SHETH MD 338.29 CHRONIC PAIN 12/06/2012 JETHRO SHETH MD 799.22 Mood Irritable 12/06/2012 REAL DO, SHAYNA K 338.29 CHRONIC PAIN 12/06/2012 REAL DO, SHAYNA K 799.22 Mood Irritable 12/06/2012 KATLYN SAXENA APRN E 338.29 CHRONIC PAIN 12/06/2012 KATLYN SAXENA APRN E 799.22 Mood Irritable 12/06/2012 KATLYN SAXENA APRN E 338.29 CHRONIC PAIN 12/06/2012 KATLYN SAXENA APRN E 799.22 Mood Irritable 12/06/2012 REAL DO SHAYNA K 338.29 CHRONIC PAIN 12/06/2012 REAL DO, SHAYNA K 799.22 Mood Irritable 12/06/2012 KATLYN SAXENA APRN E 338.29 CHRONIC PAIN 12/06/2012 KATLYN SAXENA APRN E 799.22 Mood Irritable 12/06/2012 REAL DO, SHAYNA K 338.29 CHRONIC PAIN 12/06/2012 REAL DO SHAYNA K 799.22 MOOD IRRITABLE 12/06/2012 ROSSY DE LA TORRE MD 338.29 CHRONIC PAIN 12/06/2012 ROSSY DE LA TORRE MD 799.22 MOOD IRRITABLE 12/06/2012 KATLYN SAXENA APRN E 338.29 CHRONIC PAIN 12/06/2012 KATLYN SAXENA APRN E 799.22 MOOD IRRITABLE 01/18/2013 584.9 ACUTE RENAL FAILURE 01/18/2013 V68.01 visit for: issue medical certificate disability 01/18/2013 584.9 ACUTE RENAL FAILURE 01/18/2013 V68.01 visit for: issue medical certificate disability 01/18/2013 584.9 ACUTE RENAL FAILURE 01/18/2013 V68.01 visit for: issue medical certificate disability 01/18/2013 584.9 ACUTE RENAL FAILURE 01/18/2013 V68.01 visit for: issue medical certificate disability 01/18/2013 REAL DO SHAYNA K 584.9 ACUTE RENAL FAILURE 01/18/2013 REAL DO SHAYNA K V68.01 visit for: issue medical certificate disability 01/18/2013 REAL DO SHAYNA K 584.9 ACUTE RENAL FAILURE 01/18/2013 REAL DO SHAYNA K V68.01 visit for: issue medical certificate disability 01/18/2013 REAL DO SHAYNA K 584.9 ACUTE RENAL FAILURE 01/18/2013 REAL DO SHAYNA K V68.01 visit for: issue medical certificate disability 01/18/2013 REAL DO SHAYNA K 584.9 ACUTE RENAL FAILURE 01/18/2013 REAL DO SHAYNA K V68.01 visit for: issue medical certificate disability 01/18/2013 REAL DO SHAYNA K 584.9 ACUTE RENAL FAILURE 01/18/2013 REAL DO SHAYNA K V68.01 visit for: issue medical certificate disability 01/18/2013 REAL DO SHAYNA K 584.9 ACUTE RENAL FAILURE 01/18/2013 REAL DO SHAYNA K V68.01 visit for: issue medical certificate disability 01/18/2013 REAL DO SHAYNA K 584.9 ACUTE RENAL FAILURE 01/18/2013 REAL DO SHAYNA K V68.01 visit for: issue medical certificate disability 01/18/2013 REAL DO SHAYNA K 584.9 ACUTE RENAL FAILURE 01/18/2013 REAL DO SHAYNA K V68.01 visit for: issue medical certificate disability 01/18/2013 REAL DO SHAYNA K 584.9 ACUTE RENAL FAILURE 01/18/2013 REAL DO SHAYNA K V68.01 visit for: issue medical certificate disability 01/18/2013 REAL DO SHAYNA K 584.9 ACUTE RENAL FAILURE 01/18/2013 REAL DO SHAYNA K V68.01 visit for: issue medical certificate disability 01/18/2013 SOHAN HINES, JAY Overton 584.9 ACUTE RENAL FAILURE 01/18/2013 JAY MENDEZ MD V68.01 visit for: issue medical certificate disability 01/18/2013 REAL DO SHAYNA K 584.9 ACUTE RENAL FAILURE 01/18/2013 REAL DO SHAYNA K V68.01 visit for: issue medical certificate disability 01/18/2013 SOHAN HINES, JAY Overton 584.9 ACUTE RENAL FAILURE 01/18/2013 SOHAN HINES, JAY Overton V68.01 visit for: issue medical certificate disability 01/18/2013 REAL DO SHAYNA K 584.9 ACUTE RENAL FAILURE 01/18/2013 REAL DO SHAYNA K V68.01 visit for: issue medical certificate disability 01/18/2013 REAL DO SHAYNA K 584.9 ACUTE RENAL FAILURE 01/18/2013 REAL DO SHAYNA K V68.01 visit for: issue medical certificate disability 01/18/2013 REAL DO SHAYNA K 584.9 ACUTE RENAL FAILURE 01/18/2013 REAL DO SHAYNA K V68.01 visit for: issue medical certificate disability 01/18/2013 JETHRO SHETH MD 584.9 ACUTE RENAL FAILURE 01/18/2013 JETHRO SHETH MD V68.01 visit for: issue medical certificate disability 01/18/2013 JETHRO SHETH MD 584.9 ACUTE RENAL FAILURE 01/18/2013 JETHRO SHETH MD V68.01 visit for: issue medical certificate disability 01/18/2013 REAL DO SHAYNA K 584.9 ACUTE RENAL FAILURE 01/18/2013 REAL DO SHAYNA K V68.01 visit for: issue medical certificate disability 01/18/2013 HEMANTH HARRINGTON KATLYN E 584.9 ACUTE RENAL FAILURE 01/18/2013 HEMANTH HARRINGTON KATLYN E V68.01 visit for: issue medical certificate disability 01/18/2013 HEMANTH HARRINGTON KATLYN E 584.9 ACUTE RENAL FAILURE 01/18/2013 HEMANTH HARRINGTON KATLYN E V68.01 visit for: issue medical certificate disability 01/18/2013 REAL DO SHAYNA K 584.9 ACUTE RENAL FAILURE 01/18/2013 REAL DO SHAYNA K V68.01 visit for: issue medical certificate disability 01/18/2013 HEMANTH 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, KATLNY E 584.9 ACUTE RENAL FAILURE 01/18/2013 HEMANTH [facility] KATLYN E V68.01 visit for: issue medical certificate disability 01/18/2013 REAL DO, SHAYNA K 584.9 ACUTE RENAL FAILURE 01/18/2013 REAL DO, SHAYNA K V68.01 VISIT FOR: ISSUE MEDICAL CERTIFICATE DISABILITY 01/18/2013 BRITT HINES, ROSSY N 584.9 ACUTE RENAL FAILURE 01/18/2013 ROSSY DE LA TORRE MD N V68.01 VISIT FOR: ISSUE MEDICAL CERTIFICATE DISABILITY 01/18/2013 ELOYVANESSA HARRINGTONJAIMEE E 584.9 ACUTE RENAL FAILURE 01/18/2013 KATLYN SAXENA APRN E V68.01 VISIT FOR: ISSUE MEDICAL CERTIFICATE DISABILITY 01/25/2013 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 KNEES BOTH 01/25/2013 REAL DO, SHAYNA K 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 KNEES BOTH 01/25/2013 REAL DO, SHAYNA K 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 KNEES BOTH 01/25/2013 JAY MENDEZ MD 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 KNEES BOTH 01/25/2013 REAL DO, SHAYNA K 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 KNEES BOTH 01/25/2013 JAY MENDEZ MD 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 KNEES BOTH 01/25/2013 REAL DO, SHAYNA K 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 KNEES BOTH 01/25/2013 REAL DO, SHAYNA K 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 KNEES BOTH 01/25/2013 REAL DO, SHAYNA K 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 KNEES BOTH 01/25/2013 JETHRO SHETH MD 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 KNEES BOTH 01/25/2013 JETHRO SHETH MD 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 KNEES BOTH 01/25/2013 REAL DO, SHAYNA K 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 KNEES BOTH 01/25/2013 KATLYN SAXENA APRN E 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 KNEES BOTH 01/25/2013 KATLYN SAXENA APRN E 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 KNEES BOTH 01/25/2013 REAL DO, SHAYNA K 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 KNEES BOTH 01/25/2013 KATLYN SAXENA APRN E 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 KNEES BOTH 01/25/2013 REAL DO, SHAYNA K 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 KNEES BOTH 01/25/2013 ROSSY DE LA TORRE MD 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 KNEES BOTH 01/25/2013 KATLYN SAXENA APRN E 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 KNEES BOTH 02/03/2013 DOMENIC HINES, JETHRO Ulloa Ot 041.85 BACTERIAL INFEC DUE TO OTH GRAM-NEG ORGA 02/03/2013 DOMENIC HINES, JETHRO Ulloa Ot 250.00 DIAB PURVI WO COMPL, TYPE II OR UNSPEC TY 02/03/2013 JETHRO SHETH MD Ot 276.52 HYPOVOLEMIA 02/03/2013 JETHRO SHETH MD Ot 278.00 OBESITY, NOS 02/03/2013 DOMENIC HINES, JETHRO Ulloa Ot 403.90 HYPTNSV CHR KID DIS, UNSPEC, W CHR KD ST 02/03/2013 JETHRO SHETH MD Ot 458.9 HYPOTENSION NOS 02/03/2013 JETHRO SHETH MD Ot 496 CHR AIRWAY OBSTRUCT NEC 02/03/2013 JETHRO SHETH MD Ot 584.9 ACUTE RENAL FAILURE, UNSPECIFIED 02/03/2013 JETHRO SHETH MD Ot 585.9 CHRONIC KIDNEY DISEASE, UNSPECIFIED 02/03/2013 JETHRO SHETH MD Ot 791.9 ABN URINE FINDINGS NEC 02/03/2013 DOMENIC HINES, JETHRO Ulloa Ot V85.43 BODY MASS INDEX 50.0-59.9, ADULT 03/20/2013 REAL DO, SHAYNA K V04.81 FLU SHOT 03/20/2013 REAL DO, SHAYNA K V04.81 FLU SHOT 03/20/2013 REAL DO, SHAYNA K V04.81 FLU SHOT 03/20/2013 REAL DO, SHAYNA K V04.81 FLU SHOT 03/20/2013 REAL DO, SHAYNA K V04.81 FLU SHOT 03/20/2013 REAL DO, SHAYNA K V04.81 FLU SHOT 03/20/2013 REAL DO, SHAYNA K V04.81 FLU SHOT 03/20/2013 REAL DO, SHAYNA K V04.81 FLU SHOT 03/20/2013 REAL DO, SHAYNA K V04.81 FLU SHOT 03/20/2013 REAL DO, SHAYNA K V04.81 FLU SHOT 03/20/2013 SOHAN HINES, JAY Overton V04.81 FLU SHOT 03/20/2013 REAL DO, SHAYNA K V04.81 FLU SHOT 03/20/2013 SOHAN HINES, JAY Overton V04.81 FLU SHOT 03/20/2013 REAL DO, SHAYNA K V04.81 FLU SHOT 03/20/2013 REAL DO, SHAYNA K V04.81 FLU SHOT 03/20/2013 REAL DO, SHAYNA K V04.81 FLU SHOT 03/20/2013 DOMENIC HINES, JETHRO V04.81 FLU SHOT 03/20/2013 DOMENIC HINES, JETHRO V04.81 FLU SHOT 03/20/2013 REAL DO, SHAYNA K V04.81 FLU SHOT 03/20/2013 JAIME SAXENA APRNE E V04.81 FLU SHOT 03/20/2013 JAMEL SAXENA APRNSIE E V04.81 FLU SHOT 03/20/2013 REAL DO, SHAYNA K V04.81 FLU SHOT 03/20/2013 JAMEL SAXENA APRNSIE E V04.81 FLU SHOT 03/20/2013 REAL DO, SHAYNA K V04.81 FLU SHOT 03/20/2013 BRITT HINES, ROSSY Carl V04.81 FLU SHOT 03/20/2013 JAMEL SAXENA APRNSIE E V04.81 FLU SHOT 04/19/2013 REAL DO, SHAYNA K 787.01 NAUSEA WITH VOMITING 04/19/2013 REAL DO, SHAYNA K 789.00 ABDOMINAL PAIN UNSPECIFIED SITE 04/19/2013 REAL DO, SHAYNA K 787.01 NAUSEA WITH VOMITING 04/19/2013 REAL DO, SHAYNA K 789.00 ABDOMINAL PAIN UNSPECIFIED SITE 04/19/2013 REAL DO, SHAYNA K 787.01 NAUSEA WITH VOMITING 04/19/2013 REAL DO, SHAYNA K 789.00 ABDOMINAL PAIN UNSPECIFIED SITE 04/19/2013 REAL DO, SHAYNA K 787.01 NAUSEA WITH VOMITING 04/19/2013 REAL DO, SHAYNA K 789.00 ABDOMINAL PAIN UNSPECIFIED SITE 04/19/2013 REAL DO, SHAYNA K 787.01 NAUSEA WITH VOMITING 04/19/2013 REAL DO, SHAYNA K 789.00 ABDOMINAL PAIN UNSPECIFIED SITE 04/19/2013 REAL DO, SHAYNA K 787.01 NAUSEA WITH VOMITING 04/19/2013 REAL DO, SHAYNA K 789.00 ABDOMINAL PAIN UNSPECIFIED SITE 04/19/2013 REAL DO, SHAYNA K 787.01 NAUSEA WITH VOMITING 04/19/2013 REAL DO, SHAYNA K 789.00 ABDOMINAL PAIN UNSPECIFIED SITE 04/19/2013 REAL DO, SHAYNA K 787.01 NAUSEA WITH VOMITING 04/19/2013 REAL DO, SHAYNA K 789.00 ABDOMINAL PAIN UNSPECIFIED SITE 04/19/2013 SOHAN HINES, JAY Overton 787.01 NAUSEA WITH VOMITING 04/19/2013 SOHAN HINES, JAY Overton 789.00 ABDOMINAL PAIN UNSPECIFIED SITE 04/19/2013 REAL DO, SHAYNA K 787.01 NAUSEA WITH VOMITING 04/19/2013 REAL DO, SHAYNA K 789.00 ABDOMINAL PAIN UNSPECIFIED SITE 04/19/2013 SOHAN HINES, JAY Overton 787.01 NAUSEA WITH VOMITING 04/19/2013 SOAHN HINES, JAY Overton 789.00 ABDOMINAL PAIN UNSPECIFIED SITE 04/19/2013 REAL DO, SHAYNA K 787.01 NAUSEA WITH VOMITING 04/19/2013 REAL DO, SHAYNA K 789.00 ABDOMINAL PAIN UNSPECIFIED SITE 04/19/2013 REAL DO, SHAYNA K 787.01 NAUSEA WITH VOMITING 04/19/2013 REAL DO, SHAYNA K 789.00 ABDOMINAL PAIN UNSPECIFIED SITE 04/19/2013 REAL DO, SHAYNA K 787.01 NAUSEA WITH VOMITING 04/19/2013 REAL DO, SHAYNA K 789.00 ABDOMINAL PAIN UNSPECIFIED SITE 04/19/2013 JETHRO SHETH MD 787.01 NAUSEA WITH VOMITING 04/19/2013 JETHRO SHETH MD 789.00 ABDOMINAL PAIN UNSPECIFIED SITE 04/19/2013 JETHRO SHETH MD 787.01 NAUSEA WITH VOMITING 04/19/2013 JETHRO SHETH MD 789.00 ABDOMINAL PAIN UNSPECIFIED SITE 04/19/2013 REAL DO, SHAYNA K 787.01 NAUSEA WITH VOMITING 04/19/2013 REAL DO, SHAYNA K 789.00 ABDOMINAL PAIN UNSPECIFIED SITE 04/19/2013 HEMANTH HARRINGTON KATLYN E 787.01 NAUSEA WITH VOMITING 04/19/2013 HEMANTH 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, KATLYN E 789.00 ABDOMINAL PAIN UNSPECIFIED SITE 04/19/2013 HEMANTH HARRINGTON KATLYN E 787.01 NAUSEA WITH VOMITING 04/19/2013 ELOYLCRISTAL HARRINGTON KATLYN E 789.00 ABDOMINAL PAIN UNSPECIFIED SITE 04/19/2013 REAL DO, SHAYNA K 787.01 NAUSEA WITH VOMITING 04/19/2013 REAL DO, SHAYNA K 789.00 ABDOMINAL PAIN UNSPECIFIED SITE 04/19/2013 HEMANTH HARRINGTON KATLYN E 787.01 NAUSEA WITH VOMITING 04/19/2013 HEMANTH 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, KATLYN E 789.00 ABDOMINAL PAIN UNSPECIFIED SITE 04/19/2013 REAL DO, SHAYNA K 787.01 NAUSEA WITH VOMITING 04/19/2013 REAL DO, SHAYNA K 789.00 ABDOMINAL PAIN UNSPECIFIED SITE 04/19/2013 BRITT HINES, ROSSY N 787.01 NAUSEA WITH VOMITING 04/19/2013 ROSSY DE LA TORRE MD N 789.00 ABDOMINAL PAIN UNSPECIFIED SITE 04/19/2013 HEMANTH HARRINGTON KATLYN E 787.01 NAUSEA WITH VOMITING 04/19/2013 HEMANTH HARRINGTON KATLYN E 789.00 ABDOMINAL PAIN UNSPECIFIED SITE 04/24/2013 REAL DO, SHAYNA K Ot 250.00 DIAB PURVI WO COMPL, TYPE II OR UNSPEC TY 04/24/2013 REAL DO, SHAYNA K Ot 272.4 HYPERLIPIDEMIA NEC/NOS 04/24/2013 REAL DO, SHAYNA K Ot 276.50 VOLUME DEPLETION, UNSPECIFIED 04/24/2013 REAL DO, SHAYNA K Ot 276.8 HYPOPOTASSEMIA 04/24/2013 REAL DO, SHAYNA K Ot 288.60 LEUKOCYTOSIS, UNSPECIFIED 04/24/2013 REAL DO, SHAYNA K Ot 311 DEPRESSIVE DISORDER NEC 04/24/2013 REAL DO, SHAYNA K Ot 403.90 HYPTNSV CHR KID DIS, UNSPEC, W CHR KD ST 04/24/2013 REAL DO, SHAYNA K Ot 496 CHR AIRWAY OBSTRUCT NEC 04/24/2013 REAL DO, SHAYNA K Ot 560.9 INTESTINAL OBSTRUCT NOS 04/24/2013 ADDIE NOONAN SHAYNA K Ot 584.9 ACUTE RENAL FAILURE, UNSPECIFIED 04/24/2013 ADDIE NOONAN SHAYNA K Ot 585.9 CHRONIC KIDNEY DISEASE, UNSPECIFIED 04/24/2013 REAL DO SHAYNA K Ot V12.51 HX-VENOUS THROMBOSIS EMBOLISM 05/03/2013 ADDIE NOONAN SHAYNA K 453.81 ACUTE VENOUS EMBOLISM AND THROMBOSIS OF SUPERFICIAL VEINS OF UPPER EXTREMITY 05/03/2013 ADDIE NOONAN SHAYNA K 453.81 ACUTE VENOUS EMBOLISM AND THROMBOSIS OF SUPERFICIAL VEINS OF UPPER EXTREMITY 05/03/2013 ADDIE NOONAN SHAYNA K 453.81 ACUTE VENOUS EMBOLISM AND THROMBOSIS OF SUPERFICIAL VEINS OF UPPER EXTREMITY 05/03/2013 JAY MENDEZ MD 453.81 ACUTE VENOUS EMBOLISM AND THROMBOSIS OF SUPERFICIAL VEINS OF UPPER EXTREMITY 05/03/2013 ADDIE NOONAN SHAYNA K 453.81 ACUTE VENOUS EMBOLISM AND THROMBOSIS OF SUPERFICIAL VEINS OF UPPER EXTREMITY 05/03/2013 JAY MENDEZ MD 453.81 ACUTE VENOUS EMBOLISM AND THROMBOSIS OF SUPERFICIAL VEINS OF UPPER EXTREMITY 05/03/2013 ADDIE NOONAN SHAYNA K 453.81 ACUTE VENOUS EMBOLISM AND THROMBOSIS OF SUPERFICIAL VEINS OF UPPER EXTREMITY 05/03/2013 ADDIE NOONAN SHAYNA K 453.81 ACUTE VENOUS EMBOLISM AND THROMBOSIS OF SUPERFICIAL VEINS OF UPPER EXTREMITY 05/03/2013 ADDIE NOONAN SHAYNA K 453.81 ACUTE VENOUS EMBOLISM AND THROMBOSIS OF SUPERFICIAL VEINS OF UPPER EXTREMITY 05/03/2013 JETHRO SHETH MD 453.81 ACUTE VENOUS EMBOLISM AND THROMBOSIS OF SUPERFICIAL VEINS OF UPPER EXTREMITY 05/03/2013 JETHRO SHETH MD 453.81 ACUTE VENOUS EMBOLISM AND THROMBOSIS OF SUPERFICIAL VEINS OF UPPER EXTREMITY 05/03/2013 ADDIE NOONAN SHAYNA K 453.81 ACUTE VENOUS EMBOLISM AND THROMBOSIS OF SUPERFICIAL VEINS OF UPPER EXTREMITY 05/03/2013 KATLYN SAXENA APRN 453.81 ACUTE VENOUS EMBOLISM AND THROMBOSIS OF SUPERFICIAL VEINS OF UPPER EXTREMITY 05/03/2013 KATLYN SAXENA APRN 453.81 ACUTE VENOUS EMBOLISM AND THROMBOSIS OF SUPERFICIAL VEINS OF UPPER EXTREMITY 05/03/2013 ADDIE NOONAN SHAYNA K 453.81 ACUTE VENOUS EMBOLISM AND THROMBOSIS OF SUPERFICIAL VEINS OF UPPER EXTREMITY 05/03/2013 KATLYN SAXENA APRN 453.81 ACUTE VENOUS EMBOLISM AND THROMBOSIS OF SUPERFICIAL VEINS OF UPPER EXTREMITY 05/03/2013 REAL DO, SHAYNA K 453.81 ACUTE VENOUS EMBOLISM AND THROMBOSIS OF SUPERFICIAL VEINS OF UPPER EXTREMITY 05/03/2013 ROSSY DE LA TORRE MD 453.81 ACUTE VENOUS EMBOLISM AND THROMBOSIS OF SUPERFICIAL VEINS OF UPPER EXTREMITY 05/03/2013 KATLYN SAXENA APRN 453.81 ACUTE VENOUS EMBOLISM AND THROMBOSIS OF SUPERFICIAL VEINS OF UPPER EXTREMITY 05/08/2013 REAL DO, SHAYNA K 564.00 UNSPECIFIED CONSTIPATION 05/08/2013 REAL DO, SHAYNA K 564.00 UNSPECIFIED CONSTIPATION 05/08/2013 SOHAN HINES, JAY Overton 564.00 UNSPECIFIED CONSTIPATION 05/08/2013 REAL DO, SHAYNA K 564.00 UNSPECIFIED CONSTIPATION 05/08/2013 SOHAN HINES, JAY Overton 564.00 UNSPECIFIED CONSTIPATION 05/08/2013 REAL DO, SHAYNA K 564.00 UNSPECIFIED CONSTIPATION 05/08/2013 REAL DO, SHAYNA K 564.00 UNSPECIFIED CONSTIPATION 05/08/2013 REAL DO, SHAYNA K 564.00 UNSPECIFIED CONSTIPATION 05/08/2013 JETHRO SHETH MD 564.00 UNSPECIFIED CONSTIPATION 05/08/2013 JETHRO SHETH MD 564.00 UNSPECIFIED CONSTIPATION 05/08/2013 REAL DO, SHAYNA K 564.00 UNSPECIFIED CONSTIPATION 05/08/2013 KATLYN SAXENA APRN E 564.00 UNSPECIFIED CONSTIPATION 05/08/2013 KATLYN SAXENA APRN E 564.00 UNSPECIFIED CONSTIPATION 05/08/2013 REAL DO, SHAYNA K 564.00 UNSPECIFIED CONSTIPATION 05/08/2013 KATLYN SAXENA APRN E 564.00 UNSPECIFIED CONSTIPATION 05/08/2013 REAL DO, SHAYNA K 564.00 UNSPECIFIED CONSTIPATION 05/08/2013 ROSSY DE LA TORRE MD 564.00 UNSPECIFIED CONSTIPATION 05/08/2013 KATLYN SAXENA APRN 564.00 UNSPECIFIED CONSTIPATION 05/15/2013 REAL DO, SHAYNA K 789.07 ABDOMINAL PAIN GENERALIZED 05/15/2013 SOHAN HINES, JAY Overton 789.07 ABDOMINAL PAIN GENERALIZED 05/15/2013 REAL DO, SHAYNA K 789.07 ABDOMINAL PAIN GENERALIZED 05/15/2013 SOHAN HINES, JAY Overton 789.07 ABDOMINAL PAIN GENERALIZED 05/15/2013 REAL DO, SHAYNA K 789.07 ABDOMINAL PAIN GENERALIZED 05/15/2013 REAL DO SHAYNA K 789.07 ABDOMINAL PAIN GENERALIZED 05/15/2013 REAL DO, SHAYNA K 789.07 ABDOMINAL PAIN GENERALIZED 05/15/2013 JETHRO SHETH MD 789.07 ABDOMINAL PAIN GENERALIZED 05/15/2013 JETHRO SHETH MD 789.07 ABDOMINAL PAIN GENERALIZED 05/15/2013 REAL JAMEL NOONANA K 789.07 ABDOMINAL PAIN GENERALIZED 05/15/2013 KATLYN SAXENA APRN E 789.07 ABDOMINAL PAIN GENERALIZED 05/15/2013 KATLYN SAXENA APRN E 789.07 ABDOMINAL PAIN GENERALIZED 05/15/2013 REAL DOJAMELA K 789.07 ABDOMINAL PAIN GENERALIZED 05/15/2013 KATLYN SAXENA APRN 789.07 ABDOMINAL PAIN GENERALIZED 05/15/2013 REAL DOJAMELA K 789.07 ABDOMINAL PAIN GENERALIZED 05/15/2013 BRITT HINES, ROSSY Carl 789.07 ABDOMINAL PAIN GENERALIZED 05/15/2013 KATLYN SAXENA APRN 789.07 ABDOMINAL PAIN GENERALIZED 06/05/2013 SOHAN HINES, JAY M Ot 562.10 DIVERTICULOSIS COLON (W/O MENT OF HEMORR 06/05/2013 SOHAN HINES, JAY M Ot 564.00 UNSPEC CONSTIPATION 06/14/2013 SHAYNA REAL DO V72.84 visit for: pre-procedural exam 06/14/2013 SOHAN HINES, JAY Overton V72.84 visit for: pre-procedural exam 06/14/2013 SHAYNA REAL DO V72.84 visit for: pre-procedural exam 06/14/2013 SHAYNA REAL DO V72.84 visit for: pre-procedural exam 06/14/2013 SHAYNA REAL DO V72.84 visit for: pre-procedural exam 06/14/2013 JETHRO SHETH MD V72.84 visit for: pre-procedural exam 06/14/2013 JETHRO SHETH MD V72.84 visit for: pre-procedural exam 06/14/2013 SHAYNA REAL DO V72.84 visit for: pre-procedural exam 06/14/2013 KATLYN SAXENA APRN V72.84 visit for: pre-procedural exam 06/14/2013 KATLYN SAXENA APRN V72.84 visit for: pre-procedural exam 06/14/2013 SHAYNA REAL DO V72.84 visit for: pre-procedural exam 06/14/2013 KATLYN SAXENA APRN V72.84 visit for: pre-procedural exam 06/14/2013 SHAYNA REAL DO V72.84 VISIT FOR: PRE-PROCEDURAL EXAM 06/14/2013 ROSSY DE LA TORRE MD V72.84 VISIT FOR: PRE-PROCEDURAL EXAM 06/14/2013 KATLYN SAXENA APRN V72.84 VISIT FOR: PRE-PROCEDURAL EXAM 07/26/2013 YEE LAFLEUR MD Ot 250.80 DIAB W OTH SPEC MANIFEST, TYPE II OR UNS 07/26/2013 YEE LAFLEUR MD, Ot 272.4 HYPERLIPIDEMIA NEC/NOS 07/26/2013 YEE LAFLEUR MD Ot 278.01 MORBID OBESITY 07/26/2013 YEE LAFLEUR MD Ot 311 DEPRESSIVE DISORDER NEC 07/26/2013 YEE LAFLEUR MD Ot 327.23 OBSTRUCTIVE SLEEP APNEA (ADULT) (PEDIATR 07/26/2013 YEE LAFLEUR MD Ot 401.9 HYPERTENSION NOS 07/26/2013 YEE LAFLEUR MD Ot 493.20 CHRONIC OBSTRUCTIVE ASTHMA, NOS 07/26/2013 YEE LAFLEUR MD Ot 715.36 LOC OSTEOARTH NOS-L/LEG 07/26/2013 YEE LAFLEUR MD Ot 787.91 DIARRHEA 07/26/2013 YEE LAFLEUR MD Ot 799.02 HYPOXEMIA 07/26/2013 YEE LAFLEUR MD Ot E937.9 ADV EFF SEDAT/HYPNOT NOS 07/26/2013 YEE LAFLEUR MD Ot V15.82 HISTORY OF TOBACCO USE 07/26/2013 YEE LAFLEUR MD Ot V58.67 LONG-TERM (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 OF INSULIN 07/26/2013 YEE LAFLEUR MD Ot V85.43 BODY MASS INDEX 50.0-59.9, ADULT 08/03/2013 BESS COREAS MD Ot 112.1 CANDIDAL VULVOVAGINITIS 08/03/2013 BESS COREAS MD Ot 250.00 DIAB PURVI WO COMPL, TYPE II OR UNSPEC TY 08/03/2013 COREAS MD, BESS E Ot 272.4 HYPERLIPIDEMIA NEC/NOS 08/03/2013 JOSS HINES BESS E Ot 278.01 MORBID OBESITY 08/03/2013 JOSS HINES BESS E Ot 278.03 OBESITY HYPOVENTILATION SYNDROME 08/03/2013 JOSS HINES BESS E Ot 285.9 ANEMIA NOS 08/03/2013 FRANK COREAS MDIC E Ot 300.00 ANXIETY STATE NOS 08/03/2013 FRANK COREAS MDIC E Ot 311 DEPRESSIVE DISORDER NEC 08/03/2013 JOSS HINES BESS E Ot 327.23 OBSTRUCTIVE SLEEP APNEA (ADULT) (PEDIATR 08/03/2013 FRANK COREAS MDIC E Ot 401.9 HYPERTENSION NOS 08/03/2013 JOSS HINES BESS E Ot 493.20 CHRONIC OBSTRUCTIVE ASTHMA, NOS 08/03/2013 JOSS HINES BESS E Ot 729.2 NEURALGIA/NEURITIS NOS 08/03/2013 JOSS HINES BESS E Ot 786.09 RESPIRATORY ABNORM NEC 08/03/2013 JOSS HINES BESS E Ot 787.91 DIARRHEA 08/03/2013 JOSS HINES BESS E Ot E937.9 ADV EFF SEDAT/HYPNOT NOS 08/03/2013 JOSS HINES BESS E Ot V43.65 KNEE JOINT REPLACEMENT STATUS 08/03/2013 JOSS HINES BESS E Ot V46.2 SUPPLEMENTAL OXYGEN 08/03/2013 JOSS HINES BESS E Ot V54.81 AFTERCARE FOLLOWING JOINT REPLACEMENT 08/03/2013 JOSS HINES BESS E Ot V57.89 REHABILITATION PROC NEC 08/03/2013 JOSS HINES BESS E Ot V85.43 BODY MASS INDEX 50.0-59.9, ADULT 08/11/2013 VELVET LUCERO Ot 327.23 OBSTRUCTIVE SLEEP APNEA (ADULT) (PEDIATR 08/16/2013 SHAYNA REAL DO 719.45 PAIN IN JOINT INVOLVING PELVIC REGION AND THIGH 08/16/2013 SHAYNA REAL DO 724.8 OTHER SYMPTOMS REFERABLE TO BACK 08/16/2013 SHAYNA REAL DO3.65 KNEE JOINT REPLACEMENT 08/16/2013 SHAYNA REAL DO 719.45 PAIN IN JOINT INVOLVING PELVIC REGION AND THIGH 08/16/2013 SHAYNA REAL DO 724.8 OTHER SYMPTOMS REFERABLE TO BACK 08/16/2013 SHAYNA REAL DO V43.65 KNEE JOINT REPLACEMENT 08/16/2013 REAL DO, SHAYNA K 719.45 PAIN IN JOINT INVOLVING PELVIC REGION AND THIGH 08/16/2013 ADDIE NOONAN SHAYNA K 724.8 OTHER SYMPTOMS REFERABLE TO BACK 08/16/2013 REAL DO SHAYNA K V43.65 KNEE JOINT REPLACEMENT 08/16/2013 JETHRO SHETH MD 719.45 PAIN IN JOINT INVOLVING PELVIC REGION AND THIGH 08/16/2013 JETHRO SHETH MD 724.8 OTHER SYMPTOMS REFERABLE TO BACK 08/16/2013 JETHRO SHETH MD V43.65 KNEE JOINT REPLACEMENT 08/16/2013 JETHRO SHETH MD 719.45 PAIN IN JOINT INVOLVING PELVIC REGION AND THIGH 08/16/2013 JETHRO SHETH MD 724.8 OTHER SYMPTOMS REFERABLE TO BACK 08/16/2013 JETHRO SHETH MD V43.65 KNEE JOINT REPLACEMENT 08/16/2013 JAMEL REAL DOA K 719.45 PAIN IN JOINT INVOLVING PELVIC REGION AND THIGH 08/16/2013 JAMEL REAL DOA K 724.8 OTHER SYMPTOMS REFERABLE TO BACK 08/16/2013 REAL DO SHAYNA K V43.65 KNEE JOINT REPLACEMENT 08/16/2013 HELLWIG 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 KATLYN E 719.45 PAIN IN JOINT INVOLVING PELVIC REGION AND THIGH 08/16/2013 HELLCRISTAL 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 KATLYN E 724.8 OTHER SYMPTOMS REFERABLE TO BACK 08/16/2013 HELLWIG 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 KATLYN E V43.65 KNEE JOINT REPLACEMENT 08/16/2013 HELLWIG 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 KATLYN E 719.45 PAIN IN JOINT INVOLVING PELVIC REGION AND THIGH 08/16/2013 HELLWIG 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 KATLYN E 724.8 OTHER SYMPTOMS REFERABLE TO BACK 08/16/2013 HELLWIG 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, KATLYN E V43.65 KNEE JOINT REPLACEMENT 08/16/2013 REAL DO SHAYNA K 719.45 PAIN IN JOINT INVOLVING PELVIC REGION AND THIGH 08/16/2013 ADDIE NOONAN SHAYNA K 724.8 OTHER SYMPTOMS REFERABLE TO BACK 08/16/2013 REAL DO SHAYNA K V43.65 KNEE JOINT REPLACEMENT 08/16/2013 HELLWIG 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 KATLYN E 719.45 PAIN IN JOINT INVOLVING PELVIC REGION AND THIGH 08/16/2013 HELLCRISTAL 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, KATLYN E 724.8 OTHER SYMPTOMS REFERABLE TO BACK 08/16/2013 ELOYLCRISTAL HARRINGTON, KATLYN E V43.65 KNEE JOINT REPLACEMENT 08/16/2013 JAMEL REAL DOA K 719.45 PAIN IN JOINT INVOLVING PELVIC REGION AND THIGH 08/16/2013 JAMEL REAL DOA K 724.8 OTHER SYMPTOMS REFERABLE TO BACK 08/16/2013 JAMEL REAL DOA K V43.65 KNEE JOINT REPLACEMENT 08/16/2013 ROSSY DE LA TORRE MD N 719.45 PAIN IN JOINT INVOLVING PELVIC REGION AND THIGH 08/16/2013 BRITT HINES, ROSSY N 724.8 OTHER SYMPTOMS REFERABLE TO BACK 08/16/2013 ROSSY DE LA TORRE MD N V43.65 KNEE JOINT REPLACEMENT 08/16/2013 JAMEL SAXENA APRNSIE E 719.45 PAIN IN JOINT INVOLVING PELVIC REGION AND THIGH 08/16/2013 HEMANTH HARRINGTON, KATLYN E 724.8 OTHER SYMPTOMS REFERABLE TO BACK 08/16/2013 HEMANTH HARRINGTON, KATLYN E V43.65 KNEE JOINT REPLACEMENT 08/21/2013 SHAYNA REAL DO K 250.40 DIABETES WITH RENAL MANIFESTATIONS TYPE II OR UNSPECIFIED TYPE NOT STATED UNCONTROLLED 08/21/2013 SHAYNA REAL DO K 285.21 ANEMIA IN CHRONIC KIDNEY DISEASE 08/21/2013 SHAYNA REAL DO K 791.0 PROTEINURIA 08/21/2013 SHAYNA REAL DO K 250.40 DIABETES WITH RENAL MANIFESTATIONS TYPE II OR UNSPECIFIED TYPE NOT STATED UNCONTROLLED 08/21/2013 SHAYNA REAL DO K 285.21 ANEMIA IN CHRONIC KIDNEY DISEASE 08/21/2013 SHAYNA REAL DO K 791.0 PROTEINURIA 08/21/2013 JETHRO SHETH MD 250.40 DIABETES WITH RENAL MANIFESTATIONS TYPE II OR UNSPECIFIED TYPE NOT STATED UNCONTROLLED 08/21/2013 JETHRO SHETH MD 285.21 ANEMIA IN CHRONIC KIDNEY DISEASE 08/21/2013 JETHRO SHETH MD 791.0 PROTEINURIA 08/21/2013 JETHRO SHETH MD 250.40 DIABETES WITH RENAL MANIFESTATIONS TYPE II OR UNSPECIFIED TYPE NOT STATED UNCONTROLLED 08/21/2013 JETHRO SHETH MD 285.21 ANEMIA IN CHRONIC KIDNEY DISEASE 08/21/2013 JETHRO SHETH MD 791.0 PROTEINURIA 08/21/2013 SHAYNA REAL DO 250.40 DIABETES WITH RENAL MANIFESTATIONS TYPE II OR UNSPECIFIED TYPE NOT STATED UNCONTROLLED 08/21/2013 REAL DO SHAYNA K 285.21 ANEMIA IN CHRONIC KIDNEY DISEASE 08/21/2013 REAL DO SHAYNA K 791.0 PROTEINURIA 08/21/2013 HEMANTH HARRINGTON KATLYN E 250.40 DIABETES WITH RENAL MANIFESTATIONS TYPE II OR UNSPECIFIED TYPE NOT STATED UNCONTROLLED 08/21/2013 HELVANESSA HARRINGTON KATLYN E 285.21 ANEMIA IN CHRONIC KIDNEY DISEASE 08/21/2013 HELLWIG 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, KATLYN E 791.0 PROTEINURIA 08/21/2013 HELLWIG 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, KATLYN E 250.40 DIABETES WITH RENAL MANIFESTATIONS TYPE II OR UNSPECIFIED TYPE NOT STATED UNCONTROLLED 08/21/2013 ELOYLCRISTAL HARRINGTON KATLYN E 285.21 ANEMIA IN CHRONIC KIDNEY DISEASE 08/21/2013 ELOYLCRISTAL HARRINGTON KATLYN E 791.0 PROTEINURIA 08/21/2013 REAL DO SHAYNA K 250.40 DIABETES WITH RENAL MANIFESTATIONS TYPE II OR UNSPECIFIED TYPE NOT STATED UNCONTROLLED 08/21/2013 ADDIE NOONAN SHAYNA K 285.21 ANEMIA IN CHRONIC KIDNEY DISEASE 08/21/2013 ADDIE DO SHAYNA K 791.0 PROTEINURIA 08/21/[address] [facility] KATLYN E 250.40 DIABETES WITH RENAL MANIFESTATIONS TYPE II OR UNSPECIFIED TYPE NOT STATED UNCONTROLLED 08/21/2013 HEMANTH HARRINGTON KATLYN E 285.21 ANEMIA IN CHRONIC KIDNEY DISEASE 08/21/2013 HELLCRISTAL HARRINGTON KATLYN E 791.0 PROTEINURIA 08/21/2013 REAL DO SHAYNA K 250.40 DIABETES WITH RENAL MANIFESTATIONS TYPE II OR UNSPECIFIED TYPE NOT STATED UNCONTROLLED 08/21/2013 ADDIE NOONAN SHAYNA K 285.21 ANEMIA IN CHRONIC KIDNEY DISEASE 08/21/2013 REAL DO SHAYNA K 791.0 PROTEINURIA 08/21/2013 ROSSY DE LA TORRE MD N 250.40 DIABETES WITH RENAL MANIFESTATIONS TYPE II OR UNSPECIFIED TYPE NOT STATED UNCONTROLLED 08/21/2013 ROSSY DE LA TORRE MD 285.21 ANEMIA IN CHRONIC KIDNEY DISEASE 08/21/2013 ROSSY DE LA TORRE MD 791.0 PROTEINURIA 08/21/2013 [facility]NSIE E 250.40 DIABETES WITH RENAL MANIFESTATIONS TYPE II OR UNSPECIFIED TYPE NOT STATED UNCONTROLLED 08/21/2013 KATLYN SAXENA APRN 285.21 ANEMIA IN CHRONIC KIDNEY DISEASE 08/21/2013 KATLYN SAXENA APRN 791.0 PROTEINURIA 09/13/2013 SHAYNA REAL DO K 585.9 CHRONIC KIDNEY DISEASE UNSPECIFIED 09/13/2013 JETHRO SHETH MD 585.9 CHRONIC KIDNEY DISEASE UNSPECIFIED 09/13/2013 JETHRO SHETH MD 585.9 CHRONIC KIDNEY DISEASE UNSPECIFIED 09/13/2013 JAMEL REAL DOA K 585.9 CHRONIC KIDNEY DISEASE UNSPECIFIED 09/13/2013 KATLYN SAXENA APRN 585.9 CHRONIC KIDNEY DISEASE UNSPECIFIED 09/13/2013 KATLYN SAXENA APRN 585.9 CHRONIC KIDNEY DISEASE UNSPECIFIED 09/13/2013 JAMEL REAL DOA K 585.9 CHRONIC KIDNEY DISEASE UNSPECIFIED 09/13/2013 KATLYN SAXENA APRN 585.9 CHRONIC KIDNEY DISEASE UNSPECIFIED 09/13/2013 JAMEL REAL DOA K 585.9 CHRONIC KIDNEY DISEASE UNSPECIFIED 09/13/2013 ROSSY DE LA TORRE MD 585.9 CHRONIC KIDNEY DISEASE UNSPECIFIED 09/13/2013 KATLYN SAXENA APRN 585.9 CHRONIC KIDNEY DISEASE UNSPECIFIED 10/03/2013 JETHRO SHETH MD 799.02 HYPOXEMIA 10/03/2013 JETHRO SHETH MD 799.02 HYPOXEMIA 10/03/2013 ADDIE NOONAN, SHAYNA K 799.02 HYPOXEMIA 10/03/2013 KATLYN SAXENA APRN 799.02 HYPOXEMIA 10/03/2013 KATLYN SAXENA APRN 799.02 HYPOXEMIA 10/03/2013 REAL , SHAYNA K 799.02 HYPOXEMIA 10/03/2013 KATLYN SAXENA APRN E 799.02 HYPOXEMIA 10/03/2013 REAL , SHAYNA K 799.02 HYPOXEMIA 10/03/2013 ROSSY DE LA TORRE MD 799.02 HYPOXEMIA 10/03/2013 KATLYN SAXENA APRN 799.02 HYPOXEMIA 11/09/2013 YEE LAFLEUR MD, Ot V43.65 KNEE JOINT REPLACEMENT STATUS 11/09/2013 YEE LAFLEUR MD, Ot V54.81 AFTERCARE FOLLOWING JOINT REPLACEMENT 11/09/2013 YEE LAFLEUR MD Ot V57.1 PHYSICAL THERAPY NEC 12/15/2013 CORNELIUS SMALLWOOD DO Ot 250.00 DIAB PURVI WO COMPL, TYPE II OR UNSPEC TY 12/15/2013 CORNELIUS SMALLWOOD DO Ot 272.4 HYPERLIPIDEMIA NEC/NOS 12/15/2013 CORNELIUS SMALLWOOD DO Ot 278.00 OBESITY, NOS 12/15/2013 CORNELIUS SMALLWOOD DO Ot 327.23 OBSTRUCTIVE SLEEP APNEA (ADULT) (PEDIATR 12/15/2013 CORNELIUS SMALLWOOD DO Ot 401.9 HYPERTENSION NOS 12/15/2013 CORNELIUS SMALLWOOD DO Ot 414.9 CHR ISCHEMIC HRT DIS NOS 12/15/2013 CORNELIUS SMALLWOOD DO Ot 415.19 OTH PULMON EMBOLISM/INFARCT 12/15/2013 CORNELIUS SMALLWOOD DO Ot 453.40 ACUTE VENOUS EMBOLISM THROMBOSIS UNSP 12/15/2013 CORNELIUS SMALLWOOD DO Ot 493.20 CHRONIC OBSTRUCTIVE ASTHMA, NOS 12/15/2013 CORNELIUS SMALLWOOD DO Ot V58.67 LONG-TERM (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 OF INSULIN 12/15/2013 CORNELIUS SMALLWOOD DO Ot V85.43 BODY MASS INDEX 50.0-59.9, ADULT 12/26/2013 YEE LAFLEUR MD Ot V43.65 KNEE JOINT REPLACEMENT STATUS 12/26/2013 YEE LAFLEUR MD Ot V54.81 AFTERCARE FOLLOWING JOINT REPLACEMENT 12/26/2013 YEE LAFLEUR MD Ot V57.1 PHYSICAL THERAPY NEC 01/10/2014 LUCILA GRACE MD Ot 250.00 DIAB PURVI WO COMPL, TYPE II OR UNSPEC TY 01/10/2014 LUCILA GRACE MD Ot 272.4 HYPERLIPIDEMIA NEC/NOS 01/10/2014 LUCILA GRACE MD Ot 401.9 HYPERTENSION NOS 01/10/2014 LUCILA GRACE MD Ot 414.01 CORONARY ATHEROSCLEROSIS OF [place] CORON 01/10/2014 LUCILA GRACE MD Ot 786.50 CHEST PAIN NOS 01/10/2014 LUCILA GRACE MD Ot V58.69 OTH MED,LT,CURRENT USE 03/08/2014 KATLYN SAXENA APRN 49Jeffery COPD 03/08/2014 KATLYN SAXENA APRN 496 COPD 03/08/2014 SHAYNA REAL DO 496 COPD 03/08/2014 HEMANTH SANTAMARIAMeseret KATLYN E 496 COPD 03/08/2014 SHAYNA REAL DO 496 COPD 03/08/2014 ROSSY DE LA TORRE MD 496 COPD 03/08/2014 HEMANTH HARRINGTON KATLYN Ortega 496 COPD 05/17/2014 Ot 278.01 05/17/2014 Ot 300.00 05/17/2014 Ot 327.23 05/17/2014 Ot 493.90 05/18/2014 CL NOONAN CORNELIUS M Ot 278.01 05/18/2014 CL CORNELIUS M Ot 327.23 05/18/2014 CL CORNELIUS M Ot 493.90 05/29/2014 Ot 278.01 05/29/2014 Ot 300.00 05/29/2014 Ot 327.23 05/29/2014 Ot 493.90 06/25/2014 CL NOONAN CORNELIUS M Ot 278.01 06/25/2014 CL NOONAN CORNELIUS M Ot 300.00 06/25/2014 CL NOONAN CORNELIUS M Ot 327.23 06/25/2014 CL NOONAN CORNELIUS Tian Ot 493.90 07/24/2014 ROSSY DE LA TORRE MD Ot 250.02 07/24/2014 ROSSY DE LA TORRE MD Ot 278.01 07/24/2014 ROSSY DE LA TORRE MD Ot 327.23 07/24/2014 ROSSY DE LA TORRE MD Ot 403.90 07/24/2014 ROSSY DE LA TORRE MD Ot 560.9 07/24/2014 ROSSY DE LA TORRE MD Ot 585.9 07/24/2014 ROSSY DE LA TORRE MD N Ot V12.51 07/24/2014 ROSSY DE LA TORRE MD N Ot V12.55 07/24/2014 ROSSY DE LA TORRE MD Ot V58.67 07/24/2014 ROSSY DE LA TORRE MD Ot V85.43 07/25/2014 ROSSY DE LA TORRE MD N Ot 250.02 DIAB PURVI WO COMPL, TYPE II OR UNSPEC TY 07/25/2014 ROSSY DE LA TORRE MD Ot 278.01 MORBID OBESITY 07/25/2014 ROSSY DE LA TORRE MD Ot 327.23 OBSTRUCTIVE SLEEP APNEA (ADULT) (PEDIATR 07/25/2014 ROSSY DE LA TORRE MD, Ot 403.90 HYPTNSV CHR KID DIS, UNSPEC, W CHR KD ST 07/25/2014 ROSSY DE LA TORRE MD Ot 560.9 INTESTINAL OBSTRUCT NOS 07/25/2014 ROSSY DE LA TORRE MD, Ot 585.9 CHRONIC KIDNEY DISEASE, UNSPECIFIED 07/25/2014 ROSSY DE LA TORRE MD, Ot V12.51 HX-VENOUS THROMBOSIS EMBOLISM 07/25/2014 ROSSY DE LA TORRE MD, Ot V12.55 PERSONAL HISTORY OF PULMONARY EMBOLISM 07/25/2014 ROSSY DE LA TORRE MD, Ot V58.67 LONG-TERM (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 OF INSULIN 07/25/2014 ROSSY DE LA TORRE MD, Ot V85.43 BODY MASS INDEX 50.0-59.9, ADULT 08/01/2014 ROSSY DE LA TORRE MD V12.79 PERSONAL HISTORY OF OTHER SPECIFIED DIGESTIVE SYSTEM DISEASES 08/01/2014 ROSSY DE LA TORRE MD V67.59 OTHER FOLLOW-UP EXAMINATION 08/01/2014 KATLYN SAXENA APRN V12.79 PERSONAL HISTORY OF OTHER SPECIFIED DIGESTIVE SYSTEM DISEASES 08/01/2014 KATLYN SAXENA APRN V67.59 OTHER FOLLOW-UP EXAMINATION 08/06/2014 ROSSY DE LA TORRE MD 719.45 PAIN IN JOINT INVOLVING PELVIC REGION AND THIGH 08/06/2014 KATLYN SAXENA APRN E 719.45 PAIN IN JOINT INVOLVING PELVIC REGION AND THIGH 08/08/2014 CORNELIUS SMALLWOOD DO Ot 278.01 MORBID OBESITY 08/08/2014 CORNELIUS SMALLWOOD DO Ot 300.00 ANXIETY STATE NOS 08/08/2014 CORNELIUS SMALLWOOD DO Ot 327.23 OBSTRUCTIVE SLEEP APNEA (ADULT) (PEDIATR 08/08/2014 CORNELIUS SMALLWOOD DO Ot 493.90 ASTHMA, UNSPECIFIED 12/17/2014 RODY GARCIA APRN Ot 415.19 12/17/2014 RODY GARCIA APRN Ot 786.05 01/21/2015 DOMENIC HINES, JETHRO Ulloa Ot 041.3 KLEBSIELLA PNEUMONIAE 01/21/2015 DOMENIC HINES, JETHRO Ulloa Ot 250.02 DIAB PURVI WO COMPL, TYPE II OR UNSPEC TY 01/21/2015 DOMENIC HINES, JETHRO Ulloa Ot 285.9 ANEMIA NOS 01/21/2015 DOMENIC HINES, JETHRO Ulloa Ot 403.90 HYPTNSV CHR KID DIS, UNSPEC, W CHR KD ST 01/21/2015 DOMENIC HINES, JETHRO Ulloa Ot 585.9 CHRONIC KIDNEY DISEASE, UNSPECIFIED 01/21/2015 DOMENIC HINES, JETHRO Ulloa Ot 599.0 URIN TRACT INFECTION NOS 01/21/2015 DOMENIC HINES, JETHRO Ulloa Ot 729.1 MYALGIA AND MYOSITIS NOS 01/21/2015 DOMENIC HINES, JETHRO Ulloa Ot 780.57 UNSPECIFIED SLEEP APNEA 01/21/2015 DOMENIC HINES, JETHRO Ulloa Ot 782.3 EDEMA 01/21/2015 DOMENIC HINES, JETHRO Ulloa Ot 041.3 01/21/2015 DOMENIC HINES, JETHRO Ulloa Ot 250.02 01/21/2015 DOMENIC HINES, JETHRO Ulloa Ot 285.9 01/21/2015 DOMENIC HINES, JETHRO Ulloa Ot 403.90 01/21/2015 DOMENIC HINES, JETHRO Ulloa Ot 585.9 01/21/2015 DOMENIC HINES, JETHRO Ulloa Ot 599.0 01/21/2015 DOMENIC HINES, JETHRO Ulloa Ot 729.1 01/21/2015 DOMENIC HINES, JETHRO Ulloa Ot 780.57 01/21/2015 DOMENIC HINES, JETHRO Ulloa Ot 782.3 05/08/2015 CRISTEL CAMARILLO, RANDY Oscar Ot E78.2 05/08/2015 CRISTEL PA, RANDY Oscar Ot I10 05/08/2015 CRISTEL PA, RANDY Oscar Ot I65.23 05/08/2015 CRISTEL PA, RANDY K Ot R26.89 05/14/2015 CRISTEL PA, RANDY K Ot E78.2 05/14/2015 CRISTEL PA, RANDY K Ot I10 05/14/2015 CRISTEL PA, RANDY Oscar Ot I65.23 05/14/2015 CRISTEL PA, RANDY Oscar Ot R26.89 05/15/2015 Ot 793.89 05/15/2015 Ot 793.89 05/15/2015 RUBIN HINES, AIMEE Lagunas Ot 217 05/15/2015 RUBIN HINES, AIMEE Lagunas Ot 793.89 05/15/2015 RUBIN HINES, AIMEE Lagunas Ot V67.09 05/15/2015 RUBIN HINES, AIMEE Lagunas Ot 715.36 05/15/2015 KATLYN SAXENA 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 Ot 453.81 05/15/2015 KATLYN SAXENA 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 Ot 564.00 05/15/2015 KATLYN SAXENA 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 Ot 789.00 05/15/2015 SOHAN HINES, JAY Overton Ot V72.84 05/15/2015 MIQUEL HINES, YEE Butt Ot 715.36 05/15/2015 MIQUEL HINES, YEE Butt Ot V72.63 05/15/2015 MIQUEL HINES, YEE Butt Ot V74.8 05/15/2015 DOMENIC HINES, JETHRO Ulloa Ot 585.9 05/15/2015 DOMENIC HINES, JETHRO Ulloa Ot 799.02 05/15/2015 FANNY HINES, LUCILA Velazquez Ot 250.00 05/15/2015 FANNY HINES, LUCILA Velazquez Ot 272.4 05/15/2015 FANNY HINES, LUCILA Velazquez Ot 401.9 05/15/2015 FANNY HINES, LUCILA Velazquez Ot 496 05/15/2015 FANNY HINES, LUCILA Velazquez Ot 786.05 05/15/2015 FANNY HINES, LUCILA Velazquez Ot V58.69 05/15/2015 CORNELIUS SMALLWOOD DO Ot 300.00 05/15/2015 CORNELIUS SMALLWOOD DO Ot 429.3 05/15/2015 CORNELIUS SMALLWOOD DO Ot 444.22 05/15/2015 CORNELIUS SMALLWOOD DO Ot 493.90 05/15/2015 CORNELIUS SMALLWOOD DO Ot 729.81 05/15/2015 CORNELIUS SMALLWOOD DO Ot 786.09 05/15/2015 CORNELIUS SMALLWOOD DO Ot 786.50 05/15/2015 CORNELIUS SMALLWOOD DO Ot 278.01 05/15/2015 CORNELIUS SMALLWOOD DO Ot 327.23 05/15/2015 CORNELIUS SMALLWOOD DO Ot 493.90 05/15/2015 Ot 278.01 05/15/2015 Ot 300.00 05/15/2015 Ot 327.23 05/15/2015 Ot 493.90 05/15/2015 CORNELIUS SMALLWOOD DO Ot 278.01 05/15/2015 CORENLIUS SMALLWOOD DO Ot 300.00 05/15/2015 CORNELIUS SMALLWOOD DO Ot 327.23 05/15/2015 CORNELIUS SMALLWOOD DO Ot 493.90 05/15/2015 RODY GARCIA APRN Ot 415.19 05/15/2015 RODY GARCIA APRN Ot 786.05 05/15/2015 RANDY NORMAN Ot E78.2 05/15/2015 RANDY NORMAN Ot I10 05/15/2015 RANDY NORMAN Ot I65.23 05/15/2015 RANDY NORMAN Ot R26.89 05/15/2015 LUCILA GRACE MD, Ot I10 05/15/2015 LUCILA GRACE MD, Ot I65.23 05/15/2015 LUCILA GRACE MD, Ot R26.89 05/16/2015 LUCILA GRACE MD Ot E11.9 TYPE 2 DIABETES MELLITUS WITHOUT COMPLIC 05/16/2015 LUCILA GRACE MD Ot E66.01 MORBID (SEVERE) OBESITY DUE TO EXCESS CA 05/16/2015 LUCILA GRACE MD, Ot I12.9 HYPERTENSIVE CHRONIC KIDNEY DISEASE W ST 05/16/2015 LUCILA GRACE MD, Ot I26.99 OTHER PULMONARY EMBOLISM WITHOUT ACUTE C 05/16/2015 LUCILA GRACE MD Ot I70.213 [place] ARTERIES OF EXTRM W INTRMT 05/16/2015 LUCILA GRACE MD Ot I82.409 ACUTE EMBOLISM AND THOMBOS UNSP DEEP VN 05/16/2015 LUCILA GRACE MD, Ot J44.9 CHRONIC OBSTRUCTIVE PULMONARY DISEASE, U 05/16/2015 LUCILA GRACE MD Ot M79.669 PAIN IN UNSPECIFIED LOWER LEG 05/16/2015 LUCILA GRACE MD, Ot N18.9 CHRONIC KIDNEY DISEASE, UNSPECIFIED 05/16/2015 LUCILA GRACE MD, Ot Z68.43 BODY MASS INDEX (BMI) 50-59.9 , ADULT 05/16/2015 LUCILA GRACE MD Ot Z79.01 REHABILITATION LIAISON (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 OF ANTICOAGULANT 05/16/2015 LUCILA GRACE MD, Ot Z79.4 REHABILITATION LIAISON (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 OF INSULIN 05/16/2015 LUCILA GRACE MD, Ot Z79.899 OTHER HALFWAY (CURRENT) DRUG THERAPY 06/07/2015 LUCILA GRACE MD Ot I10 06/07/2015 LUCILA GRACE MD, Ot I65.23 06/07/2015 LUCILA GRACE MD, Ot R26.89 11/14/2015 RANDY NORMAN Ot E78.2 MIXED HYPERLIPIDEMIA 11/14/2015 RANDY NORMAN Ot I10 ESSENTIAL (PRIMARY) HYPERTENSION 11/14/2015 RANDY NORMAN Ot 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 11/14/2015 RODY GARCIA APRN Ot I82.409 ACUTE EMBOLISM AND THOMBOS UNSP DEEP VN 11/15/2015 RODY GARCIA APRN Ot I82.409 ACUTE EMBOLISM AND THOMBOS UNSP DEEP VN 11/18/2015 RANDY NORMAN Ot E78.5 HYPERLIPIDEMIA, UNSPECIFIED 11/18/2015 RANDY NORMAN Ot I10 ESSENTIAL (PRIMARY) HYPERTENSION 11/18/2015 RANDY NORMAN Ot 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 11/22/2015 RODY GARCIA APRN Ot G47.33 OBSTRUCTIVE SLEEP APNEA (ADULT) (PEDIATR 11/22/2015 RODY GARCIA APRN Ot J98.4 OTHER DISORDERS OF LUNG 11/22/2015 RODY GARCIA APRN Ot R06.02 SHORTNESS OF BREATH 11/22/2015 RODY GARCIA APRN Ot R09.02 HYPOXEMIA 11/26/2015 RANDY NORMAN Ot E78.5 HYPERLIPIDEMIA, UNSPECIFIED 11/26/2015 RANDY NORMAN Ot I10 ESSENTIAL (PRIMARY) HYPERTENSION 11/26/2015 RANDY NORMAN Ot 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 11/27/2015 RANDY NORMAN Ot E78.2 MIXED HYPERLIPIDEMIA 11/27/2015 RANDY NORMAN K Ot I10 ESSENTIAL (PRIMARY) HYPERTENSION 11/27/2015 RANDY NORMAN Ot 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 11/27/2015 RODY GARCIA 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 Ot I82.409 ACUTE EMBOLISM AND THOMBOS UNSP DEEP VN 12/04/2015 RODY GARCIA 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 Ot G47.33 OBSTRUCTIVE SLEEP APNEA (ADULT) (PEDIATR 12/04/2015 RODY GARCIA 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 Ot J98.4 OTHER DISORDERS OF LUNG 12/04/2015 RODY GARCIA 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 Ot R06.02 SHORTNESS OF BREATH 12/04/2015 RODY GARCIA 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 Ot R09.02 HYPOXEMIA 12/06/2015 RODY GARCIA APRN Ot D64.9 ANEMIA, UNSPECIFIED 05/13/2016 Ot 793.89 OTH (ABN) FINDINGS ON RADIOLOGICAL EXAMI 05/13/2016 Ot 793.89 OTH (ABN) FINDINGS ON RADIOLOGICAL EXAMI 05/13/2016 RUBIN HINES, AIMEE Lagunas Ot 217 BENIGN NEOPLASM BREAST 05/13/2016 AIMEE CONKLIN MD Ot 793.89 OTH (ABN) FINDINGS ON RADIOLOGICAL EXAMI 05/13/2016 AIMEE CONKLIN MD Ot V67.09 SURGERY FOLLOW-UP, OTHER SURGERY 05/13/2016 RUBIN HINES, AIMEE Lagunas Ot 715.36 LOC OSTEOARTH NOS-L/LEG 05/13/2016 KATLYN SAXENA 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 Ot 453.81 ACUTE VENOUS EMBOLISM THROMBOSIS SUPER 05/13/2016 KATLYN SAXENA 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 Ot 564.00 UNSPEC CONSTIPATION 05/13/2016 KATLYN SAXENA 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 Ot 789.00 ABDOMINAL PAIN, UNSPECIFIED SITE 05/13/2016 SOHAN HINES, JAY Overton Ot V72.84 EXAM PRE-OPERATIVE NOS 05/13/2016 MIQUEL HINES, YEE Butt Ot 715.36 LOC OSTEOARTH NOS-L/LEG 05/13/2016 MIQUEL HINES, YEE Butt Ot V72.63 PRE-PROCEDURAL LABORATORY EXAMINATION 05/13/2016 MIQUEL HINES, YEE Butt Ot V74.8 SCREEN-BACTERIAL DIS NEC 05/13/2016 DOMENIC HINES, JETHRO Ulloa Ot 585.9 CHRONIC KIDNEY DISEASE, UNSPECIFIED 05/13/2016 DOMENIC HINES, JETHRO Ulloa Ot 799.02 HYPOXEMIA 05/13/2016 LUCILA GRACE MD Ot 250.00 DIAB PURVI WO COMPL, TYPE II OR UNSPEC TY 05/13/2016 LUCILA GRACE MD Ot 272.4 HYPERLIPIDEMIA NEC/NOS 05/13/2016 LUCILA GRACE MD Ot 401.9 HYPERTENSION NOS 05/13/2016 LUCILA GRACE MD Ot 496 CHR AIRWAY OBSTRUCT NEC 05/13/2016 LUCILA GRACE MD Ot 786.05 SHORTNESS OF BREATH 05/13/2016 LUCILA GRACE MD Ot V58.69 OT MED,LT,CURRENT USE 05/13/2016 CORNELIUS SMALLWOOD DO Ot 300.00 ANXIETY STATE NOS 05/13/2016 CORNELIUS SMALLWOOD DO Ot 429.3 CARDIOMEGALY 05/13/2016 CORNELIUS SMALLWOOD DO Ot 444.22 LOWER EXTREMITY EMBOLISM 05/13/2016 CORNELIUS SMALLWOOD DO Ot 493.90 ASTHMA, UNSPECIFIED 05/13/2016 CORNELIUS SMALLWOOD DO Ot 729.81 SWELLING OF LIMB 05/13/2016 CORNELIUS SMALLWOOD DO Ot 786.09 RESPIRATORY ABNORM NEC 05/13/2016 CORNELIUS SMALLWOOD DO Ot 786.50 CHEST PAIN NOS 05/13/2016 CORNELIUS SMALLWOOD DO Ot 278.01 MORBID OBESITY 05/13/2016 CORNELIUS SMALLWOOD DO Ot 327.23 OBSTRUCTIVE SLEEP APNEA (ADULT) (PEDIATR 05/13/2016 CORNELIUS SMALLWOOD DO Ot 493.90 ASTHMA, UNSPECIFIED 05/13/2016 Ot 278.01 MORBID OBESITY 05/13/2016 Ot 300.00 ANXIETY STATE NOS 05/13/2016 Ot 327.23 OBSTRUCTIVE SLEEP APNEA (ADULT) (PEDIATR 05/13/2016 Ot 493.90 ASTHMA, UNSPECIFIED 05/13/2016 CORNELIUS SMALLWOOD DO Ot 278.01 MORBID OBESITY 05/13/2016 CORNELIUS SMALLWOOD DO Ot 300.00 ANXIETY STATE NOS 05/13/2016 CORNELIUS SMALLWOOD DO Ot 327.23 OBSTRUCTIVE SLEEP APNEA (ADULT) (PEDIATR 05/13/2016 CORNELIUS SMALLWOOD DO Ot 493.90 ASTHMA, UNSPECIFIED 05/13/2016 RODY GARCIA APRN Ot 415.19 OTH PULMON EMBOLISM/INFARCT 05/13/2016 RODY GARCIA APRN Ot 786.05 SHORTNESS OF BREATH 05/13/2016 RANDY NORMAN Ot E78.2 MIXED HYPERLIPIDEMIA 05/13/2016 RANDY NORMAN Ot I10 ESSENTIAL (PRIMARY) HYPERTENSION 05/13/2016 RANDY NORMAN Ot 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 05/13/2016 RANDY NORMAN Ot R26.89 OTHER ABNORMALITIES OF GAIT AND MOBILITY 05/13/2016 LUCILA GRACE MD Ot I10 ESSENTIAL (PRIMARY) HYPERTENSION 05/13/2016 LUCILA GRACE MD Ot 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 05/13/2016 LUCILA GRACE MD Ot R26.89 OTHER ABNORMALITIES OF GAIT AND MOBILITY 05/13/2016 RANDY NORMAN Ot E78.2 MIXED HYPERLIPIDEMIA 05/13/2016 RANDY NORMAN Ot I10 ESSENTIAL (PRIMARY) HYPERTENSION 05/13/2016 RANDY NORMAN Ot 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 05/13/2016 RODY GARCIA APRN Ot I82.409 ACUTE EMBOLISM AND THOMBOS UNSP DEEP VN 05/13/2016 RANDY NORMAN Ot E78.5 HYPERLIPIDEMIA, UNSPECIFIED 05/13/2016 RANDY NORMAN Ot I10 ESSENTIAL (PRIMARY) HYPERTENSION 05/13/2016 RANDY NORMAN Ot 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 05/13/2016 RODY GARCIA APRN Ot G47.33 OBSTRUCTIVE SLEEP APNEA (ADULT) (PEDIATR 05/13/2016 RODY GARCIA APRN Ot J98.4 OTHER DISORDERS OF LUNG 05/13/2016 RODY GARCIA APRN Ot R06.02 SHORTNESS OF BREATH 05/13/2016 RODY GARCIA APRN Ot R09.02 HYPOXEMIA 05/13/2016 RODY GARCIA APRN Ot D64.9 ANEMIA, UNSPECIFIED 05/14/2016 HELIO CAICEDO MD Ot D64.9 ANEMIA, UNSPECIFIED 05/14/2016 HELIO CAICEDO MD Ot I12.9 HYPERTENSIVE CHRONIC KIDNEY DISEASE W ST 05/14/2016 HELIO CAICEDO MD Ot N18.4 CHRONIC KIDNEY DISEASE, STAGE 4 (SEVERE) 05/14/2016 HELIO CAICEDO MD Ot R60.0 LOCALIZED EDEMA 05/20/2016 SCHUSTER-JENNIFER PA, RANDY K Ot E78.2 MIXED HYPERLIPIDEMIA 05/20/2016 SCHUSTER-JENNIFER PA, RANDY K Ot I10 ESSENTIAL (PRIMARY) HYPERTENSION 05/20/2016 SCHUSTER-JENNIFER PA, RANDY K Ot 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 05/26/2016 HELIO CAICEDO MD Ot D64.9 ANEMIA, UNSPECIFIED 05/26/2016 HELIO CAICEDO MD Ot I12.9 HYPERTENSIVE CHRONIC KIDNEY DISEASE W ST 05/26/2016 HELIO CAICEDO MD Ot N18.4 CHRONIC KIDNEY DISEASE, STAGE 4 (SEVERE) 05/26/2016 HELIO CAICEDO MD Ot R60.0 LOCALIZED EDEMA 06/18/2016 SCHUSTER-JENNIFER PA, RANDY K Ot E78.2 MIXED HYPERLIPIDEMIA 06/18/2016 SCHUSTER-JENNIFER PA, RANDY K Ot I10 ESSENTIAL (PRIMARY) HYPERTENSION 06/18/2016 SCHUSTER-JENNIFER PA, RANDY K Ot I26.99 OTHER PULMONARY EMBOLISM WITHOUT ACUTE C 06/18/2016 SCHUSTER-JENNIFER PA, RANDY K Ot 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 06/18/2016 HELIO CAICEDO MD Ot D64.9 ANEMIA, UNSPECIFIED 06/18/2016 HELIO CAICEDO MD Ot I12.9 HYPERTENSIVE CHRONIC KIDNEY DISEASE W ST 06/18/2016 HELIO CAICEDO MD Ot N18.4 CHRONIC KIDNEY DISEASE, STAGE 4 (SEVERE) 06/18/2016 HELIO CAICEDO MD Ot R60.0 LOCALIZED EDEMA 06/19/2016 SCHUSTER-JENNIFER PA, RANDY K Ot E78.2 MIXED HYPERLIPIDEMIA 06/19/2016 SCHUSTER-JENNIFER PA, RANDY K Ot I10 ESSENTIAL (PRIMARY) HYPERTENSION 06/19/2016 SCHUSTER-JENNIFER PA, RANDY K Ot 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 07/09/2016 HELIO CAICEDO MD Ot D64.9 ANEMIA, UNSPECIFIED 07/09/2016 HELIO CAICEDO MD Ot I12.9 HYPERTENSIVE CHRONIC KIDNEY DISEASE W ST 07/09/2016 HELIO CAICEDO MD Ot N18.4 CHRONIC KIDNEY DISEASE, STAGE 4 (SEVERE) 07/09/2016 HELIO CAICEDO MD Ot R60.0 LOCALIZED EDEMA 07/09/2016 RANDY NORMAN Ot E78.2 MIXED HYPERLIPIDEMIA 07/09/2016 CRISTEL CAMARILLO, RANDY Oscar Ot I10 ESSENTIAL (PRIMARY) HYPERTENSION 07/09/2016 CRISTEL CAMARILLO, RANDY Oscar Ot I26.99 OTHER PULMONARY EMBOLISM WITHOUT ACUTE C 07/09/2016 CRISTEL CAMARILLO, RANDY Oscar Ot 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 07/17/2016 MADL, CHELSY L MANAGER DIVISION Ot Z12.31 ENCNTR SCREEN MAMMOGRAM FOR MALIGNANT NE 07/17/2016 MADL, CHELSY L MANAGER DIVISION Ot Z12.31 ENCNTR SCREEN MAMMOGRAM FOR MALIGNANT NE 07/28/2016 MADL, CHELSY L MANAGER DIVISION Ot Z12.31 ENCNTR SCREEN MAMMOGRAM FOR MALIGNANT NE 10/22/2016 JAZMIN CAMPOS MD R Ot D64.9 ANEMIA, UNSPECIFIED 10/22/2016 JAZMIN CAMPOS MD R Ot N18.4 CHRONIC KIDNEY DISEASE, STAGE 4 (SEVERE) 10/30/2016 JAZMIN CAMPOS MD Ot D64.9 ANEMIA, UNSPECIFIED 10/30/2016 JAZMIN CAMPOS MD Ot N18.4 CHRONIC KIDNEY DISEASE, STAGE 4 (SEVERE) 12/22/2016 JAZMIN CAMPOS MD Ot E88.9 METABOLIC DISORDER, UNSPECIFIED 12/22/2016 JAZMIN CAMPOS MD R Ot I12.9 HYPERTENSIVE CHRONIC KIDNEY DISEASE W ST 12/22/2016 JAZMIN CAMPOS MD R Ot N18.4 CHRONIC KIDNEY DISEASE, STAGE 4 (SEVERE) 12/22/2016 JAZMIN CAMPOS MD Ot R60.9 EDEMA, UNSPECIFIED 01/29/2017 JAZMIN CAMPOS MD Ot E88.9 METABOLIC DISORDER, UNSPECIFIED 01/29/2017 JAZMIN CAMPOS MD R Ot I12.9 HYPERTENSIVE CHRONIC KIDNEY DISEASE W ST 01/29/2017 JAZMIN CAMPOS MD Ot N18.4 CHRONIC KIDNEY DISEASE, STAGE 4 (SEVERE) 01/29/2017 KHALID MD, JAZMIN R Ot R60.9 EDEMA, UNSPECIFIED 04/02/2017 CLAUDIA DACOSTA MD Ot E88.9 METABOLIC DISORDER, UNSPECIFIED 04/02/2017 CLAUDIA DACOSTA MD A Ot I12.9 HYPERTENSIVE CHRONIC KIDNEY DISEASE W ST 04/02/2017 CLAUDIA DCAOSTA MD Ot N18.4 CHRONIC KIDNEY DISEASE, STAGE 4 (SEVERE) 04/02/2017 CLAUDIA DACOSTA MD Ot R60.0 LOCALIZED EDEMA 04/14/2017 CLAUDIA DACOSTA MD Ot E88.9 METABOLIC DISORDER, UNSPECIFIED 04/14/2017 CLAUDIA DACOSTA MD Ot I12.9 HYPERTENSIVE CHRONIC KIDNEY DISEASE W ST 04/14/2017 CLAUDIA DACOSTA MD Ot N18.4 CHRONIC KIDNEY DISEASE, STAGE 4 (SEVERE) 04/14/2017 CLAUDIA DACOSTA MD Ot R60.0 LOCALIZED EDEMA 05/04/2017 JAZMIN CAMPOS MD R Ot E11.9 TYPE 2 DIABETES MELLITUS WITHOUT COMPLIC 05/04/2017 JAZMIN CAMPOS MD R Ot I12.9 HYPERTENSIVE CHRONIC KIDNEY DISEASE W ST 05/04/2017 JAZMIN CAMPOS MD R Ot N18.3 CHRONIC KIDNEY DISEASE, STAGE 3 (MODERAT 05/04/2017 JAZMIN CAMPOS MD R Ot R60.9 EDEMA, UNSPECIFIED 05/05/2017 CLAUDIA DACOSTA MD Ot E88.9 METABOLIC DISORDER, UNSPECIFIED 05/05/2017 CLAUDIA DACOSTA MD Ot I12.9 HYPERTENSIVE CHRONIC KIDNEY DISEASE W ST 05/05/2017 CLAUDIA DACOSTA MD Ot N18.4 CHRONIC KIDNEY DISEASE, STAGE 4 (SEVERE) 05/05/2017 CLAUDIA DACOSTA MD Ot R60.0 LOCALIZED EDEMA 08/23/2017 JAZMIN CAMPOS MD R Ot E11.9 TYPE 2 DIABETES MELLITUS WITHOUT COMPLIC 08/23/2017 JAZMIN CAMPOS MD R Ot I12.9 HYPERTENSIVE CHRONIC KIDNEY DISEASE W ST 08/23/2017 JAZMIN CAMPOS MD R Ot N18.3 CHRONIC KIDNEY DISEASE, STAGE 3 (MODERAT 08/23/2017 JAZMIN CAMPOS MD Ot R60.9 EDEMA, UNSPECIFIED 08/31/2017 BETH HINES, JAZMIN Sanchez Ot E11.9 TYPE 2 DIABETES MELLITUS WITHOUT COMPLIC 08/31/2017 BETH HINES, JAZMIN Sanchez Ot I12.9 HYPERTENSIVE CHRONIC KIDNEY DISEASE W ST 08/31/2017 BETH HINES, JAZMIN Sanchez Ot N18.3 CHRONIC KIDNEY DISEASE, STAGE 3 (MODERAT 08/31/2017 BETH HINES, JAZMIN Sanchez Ot R60.9 EDEMA, UNSPECIFIED 09/22/2017 Ot 793.89 OTH (ABN) FINDINGS ON RADIOLOGICAL EXAMI 09/22/2017 Ot 793.89 OTH (ABN) FINDINGS ON RADIOLOGICAL EXAMI 09/22/2017 RUBIN HINES, AIMEE Lagunas Ot 217 BENIGN NEOPLASM BREAST 09/22/2017 RUBIN HINES, AIMEE Lagunas Ot 793.89 OTH (ABN) FINDINGS ON RADIOLOGICAL EXAMI 09/22/2017 RUBIN HINES, AIMEE Lagunas Ot V67.09 SURGERY FOLLOW-UP, OTHER SURGERY 09/22/2017 RUBIN HINES, AIMEE Lagunas Ot 715.36 LOC OSTEOARTH NOS-L/LEG 09/22/2017 KATLYN SAXENA 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 Ot 453.81 ACUTE VENOUS EMBOLISM THROMBOSIS SUPER 09/22/2017 KATLYN SAXENA 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 Ot 564.00 UNSPEC CONSTIPATION 09/22/2017 KATLYN SAXENA 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 Ot 789.00 ABDOMINAL PAIN, UNSPECIFIED SITE 09/22/2017 SOHAN HINES, JAY Overton Ot V72.84 EXAM PRE-OPERATIVE NOS 09/22/2017 MIQUEL HINES, YEE Butt Ot 715.36 LOC OSTEOARTH NOS-L/LEG 09/22/2017 MIQUEL HINES, YEE Butt Ot V72.63 PRE-PROCEDURAL LABORATORY EXAMINATION 09/22/2017 MIQUEL HINES, YEE Butt Ot V74.8 SCREEN-BACTERIAL DIS NEC 09/22/2017 DOMENIC HINES, JETHRO Ulloa Ot 585.9 CHRONIC KIDNEY DISEASE, UNSPECIFIED 09/22/2017 DOMENIC HINES, JETHRO Ulloa Ot 799.02 HYPOXEMIA 09/22/2017 FANNY HINES, LUCILA Velazquez Ot 250.00 DIAB PURVI WO COMPL, TYPE II OR UNSPEC TY 09/22/2017 LUCILA GRACE MD Ot 272.4 HYPERLIPIDEMIA NEC/NOS 09/22/2017 LUCILA GRACE MD Ot 401.9 HYPERTENSION NOS 09/22/2017 LUCILA GRACE MD Ot 496 CHR AIRWAY OBSTRUCT NEC 09/22/2017 LUCILA GRACE MD Ot 786.05 SHORTNESS OF BREATH 09/22/2017 LUCILA GRACE MD Ot V58.69 OT MED,LT,CURRENT USE 09/22/2017 CORNELIUS SMALLWOOD DO Ot 300.00 ANXIETY STATE NOS 09/22/2017 CORNELIUS SMALLWOOD DO Ot 429.3 CARDIOMEGALY 09/22/2017 CORNELIUS SMALLWOOD DO Ot 444.22 LOWER EXTREMITY EMBOLISM 09/22/2017 CORNELIUS SMALLWOOD DO Ot 493.90 ASTHMA, UNSPECIFIED 09/22/2017 CORNELIUS SMALLWOOD DO Ot 729.81 SWELLING OF LIMB 09/22/2017 CORNELIUS SMALLWOOD DO Ot 786.09 RESPIRATORY ABNORM NEC 09/22/2017 CORNELIUS SMALLWOOD DO Ot 786.50 CHEST PAIN NOS 09/22/2017 CORNELIUS SMALLWOOD DO Ot 278.01 MORBID OBESITY 09/22/2017 CORNELIUS SMALLWOOD DO Ot 327.23 OBSTRUCTIVE SLEEP APNEA (ADULT) (PEDIATR 09/22/2017 CORNELIUS SMALLWOOD DO Ot 493.90 ASTHMA, UNSPECIFIED 09/22/2017 Ot 278.01 MORBID OBESITY 09/22/2017 Ot 300.00 ANXIETY STATE NOS 09/22/2017 Ot 327.23 OBSTRUCTIVE SLEEP APNEA (ADULT) (PEDIATR 09/22/2017 Ot 493.90 ASTHMA, UNSPECIFIED 09/22/2017 CORNELIUS SMALLWOOD DO Ot 278.01 MORBID OBESITY 09/22/2017 CORNELIUS SMALLWOOD DO Ot 300.00 ANXIETY STATE NOS 09/22/2017 CORNELIUS SMALLWOOD DO Ot 327.23 OBSTRUCTIVE SLEEP APNEA (ADULT) (PEDIATR 09/22/2017 CORNELIUS SMALLWOOD DO Ot 493.90 ASTHMA, UNSPECIFIED 09/22/2017 RODY GARCIA APRN Ot 415.19 OTH PULMON EMBOLISM/INFARCT 09/22/2017 RODY GARCIA APRN Ot 786.05 SHORTNESS OF BREATH 09/22/2017 RANDY NORMAN Ot E78.2 MIXED HYPERLIPIDEMIA 09/22/2017 RANDY NORMAN Ot I10 ESSENTIAL (PRIMARY) HYPERTENSION 09/22/2017 CRISTEL CAMARILLO, RANDY Oscar Ot 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 09/22/2017 RANDY NORMAN Ot R26.89 OTHER ABNORMALITIES OF GAIT AND MOBILITY 09/22/2017 FANNY HINES, LUCILA Velazquez Ot I10 ESSENTIAL (PRIMARY) HYPERTENSION 09/22/2017 FANNY HINES, LUCILA Velazquez Ot 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 09/22/2017 FANNY HINES, LUCILA Velazquez Ot R26.89 OTHER ABNORMALITIES OF GAIT AND MOBILITY 09/22/2017 RANDY NORMAN Ot E78.2 MIXED HYPERLIPIDEMIA 09/22/2017 RANDY NORMAN Ot I10 ESSENTIAL (PRIMARY) HYPERTENSION 09/22/2017 RANDY NORMAN Ot 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 09/22/2017 RODY GARCIA APRN Ot I82.409 ACUTE EMBOLISM AND THOMBOS UNSP DEEP VN 09/22/2017 RANDY NORMAN Ot E78.5 HYPERLIPIDEMIA, UNSPECIFIED 09/22/2017 RANDY NORMAN Ot I10 ESSENTIAL (PRIMARY) HYPERTENSION 09/22/2017 RANDY NORMAN Ot 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 09/22/2017 RODY GARCIA APRN Ot G47.33 OBSTRUCTIVE SLEEP APNEA (ADULT) (PEDIATR 09/22/2017 RODY GARCIA APRN Ot J98.4 OTHER DISORDERS OF LUNG 09/22/2017 RODY GARCIA APRN Ot R06.02 SHORTNESS OF BREATH 09/22/2017 RODY GARCIA APRN Ot R09.02 HYPOXEMIA 09/22/2017 RODY GARCIA APRN Ot D64.9 ANEMIA, UNSPECIFIED 09/22/2017 HELIO CAICEDO MD Ot D64.9 ANEMIA, UNSPECIFIED 09/22/2017 HELIO CAICEDO MD Ot I12.9 HYPERTENSIVE CHRONIC KIDNEY DISEASE W ST 09/22/2017 HELIO CAICEDO MD Ot N18.4 CHRONIC KIDNEY DISEASE, STAGE 4 (SEVERE) 09/22/2017 HELIO CAICEDO MD Ot R60.0 LOCALIZED EDEMA 09/22/2017 SCHUSTER-JENNIFER PA, RANDY K Ot E78.2 MIXED HYPERLIPIDEMIA 09/22/2017 CRISTEL CAMARILLO, RANDY K Ot I10 ESSENTIAL (PRIMARY) HYPERTENSION 09/22/2017 CRISTEL CAMARILLO, RANDY K Ot 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 09/22/2017 MARIFER HINES, HELIO Ot D64.9 ANEMIA, UNSPECIFIED 09/22/2017 MARIFER HINES, HELIO Ot I12.9 HYPERTENSIVE CHRONIC KIDNEY DISEASE W ST 09/22/2017 HELIO CAICEDO MD Ot N18.4 CHRONIC KIDNEY DISEASE, STAGE 4 (SEVERE) 09/22/2017 HELIO CAICEDO MD Ot R60.0 LOCALIZED EDEMA 09/22/2017 CRISTEL CAMARILLO, RANDY K Ot E78.2 MIXED HYPERLIPIDEMIA 09/22/2017 CRISTEL CAMARILLO, RANDY K Ot I10 ESSENTIAL (PRIMARY) HYPERTENSION 09/22/2017 CRISTEL CAMARILLO, RANDY K Ot I26.99 OTHER PULMONARY EMBOLISM WITHOUT ACUTE C 09/22/2017 CRISTEL CAMARILLO, RANDY K Ot 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 09/22/2017 BRODERICK CHELSY L MANAGER DIVISION Ot Z12.31 ENCNTR SCREEN MAMMOGRAM FOR MALIGNANT NE 09/22/2017 BETH HINES, JAZMIN Sanchez Ot D64.9 ANEMIA, UNSPECIFIED 09/22/2017 BETH HINES, JAZMIN R Ot N18.4 CHRONIC KIDNEY DISEASE, STAGE 4 (SEVERE) 09/22/2017 JAZMIN CAMPOS MD R Ot E88.9 METABOLIC DISORDER, UNSPECIFIED 09/22/2017 JAZMIN CAMPOS MD R Ot I12.9 HYPERTENSIVE CHRONIC KIDNEY DISEASE W ST 09/22/2017 JAZMIN CAMPOS MD R Ot N18.4 CHRONIC KIDNEY DISEASE, STAGE 4 (SEVERE) 09/22/2017 JAZMIN CAMPOS MD Ot R60.9 EDEMA, UNSPECIFIED 09/22/2017 JAZMIN CAMPOS MD R Ot E88.9 METABOLIC DISORDER, UNSPECIFIED 09/22/2017 JAZMIN CAMPOS MD R Ot I12.9 HYPERTENSIVE CHRONIC KIDNEY DISEASE W ST 09/22/2017 JAZMIN CAMPOS MD R Ot N18.4 CHRONIC KIDNEY DISEASE, STAGE 4 (SEVERE) 09/22/2017 JAZMIN CAMPOS MD R Ot R60.9 EDEMA, UNSPECIFIED 09/22/2017 OLESYA HINES, CLAUDIA Reece Ot E88.9 METABOLIC DISORDER, UNSPECIFIED 09/22/2017 OLESYA HINES, CLAUDIA Reece Ot I12.9 HYPERTENSIVE CHRONIC KIDNEY DISEASE W ST 09/22/2017 OLESYA HINES, CLAUDIA Reece Ot N18.4 CHRONIC KIDNEY DISEASE, STAGE 4 (SEVERE) 09/22/2017 OLESYA HINES, CLAUDIA Reece Ot R60.0 LOCALIZED EDEMA 09/22/2017 JAZMIN CAMPOS MD R Ot E11.9 TYPE 2 DIABETES MELLITUS WITHOUT COMPLIC 09/22/2017 BETH HINES, JAZMIN R Ot I12.9 HYPERTENSIVE CHRONIC KIDNEY DISEASE W ST 09/22/2017 JAZMIN CAMPOS MD R Ot N18.3 CHRONIC KIDNEY DISEASE, STAGE 3 (MODERAT 09/22/2017 JAZMIN CAMPOS MD R Ot R60.9 EDEMA, UNSPECIFIED 09/22/2017 JAZMIN CAMPOS MD R Ot E11.9 TYPE 2 DIABETES MELLITUS WITHOUT COMPLIC 09/22/2017 JAZMIN CAMPOS MD R Ot I12.9 HYPERTENSIVE CHRONIC KIDNEY DISEASE W ST 09/22/2017 JAZMIN CAMPOS MD R Ot N18.3 CHRONIC KIDNEY DISEASE, STAGE 3 (MODERAT 09/22/2017 BETH HINES, JAZMIN R Ot R60.9 EDEMA, UNSPECIFIED 09/22/2017 Ot 793.89 OTH (ABN) FINDINGS ON RADIOLOGICAL EXAMI 09/22/2017 Ot 793.89 OTH (ABN) FINDINGS ON RADIOLOGICAL EXAMI 09/22/2017 AIMEE CONKLIN MD Ot 217 BENIGN NEOPLASM BREAST 09/22/2017 AIMEE CONKLIN MD Ot 793.89 OTH (ABN) FINDINGS ON RADIOLOGICAL EXAMI 09/22/2017 AIMEE CONKLIN MD Ot V67.09 SURGERY FOLLOW-UP, OTHER SURGERY 09/22/2017 AIMEE CONKLIN MD Ot 715.36 LOC OSTEOARTH NOS-L/LEG 09/22/2017 KATLYN SAXENA E 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 Ot 453.81 ACUTE VENOUS EMBOLISM THROMBOSIS SUPER 09/22/2017 KATLYN SAXENA E 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 Ot 564.00 UNSPEC CONSTIPATION 09/22/2017 KATLYN SAXENA E 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 Ot 789.00 ABDOMINAL PAIN, UNSPECIFIED SITE 09/22/2017 SOHAN HINES, JAY Overton Ot V72.84 EXAM PRE-OPERATIVE NOS 09/22/2017 MIQUEL HINES, YEE Butt Ot 715.36 LOC OSTEOARTH NOS-L/LEG 09/22/2017 MIQUEL HINES, YEE Butt Ot V72.63 PRE-PROCEDURAL LABORATORY EXAMINATION 09/22/2017 MIQUEL HINES, YEE Butt Ot V74.8 SCREEN-BACTERIAL DIS NEC 09/22/2017 DOMENIC HINES, JETHRO Ulloa Ot 585.9 CHRONIC KIDNEY DISEASE, UNSPECIFIED 09/22/2017 JETHRO SHETH MD Ot 799.02 HYPOXEMIA 09/22/2017 FANNY HINES, LUCILA Velazquez Ot 250.00 DIAB PURVI WO COMPL, TYPE II OR UNSPEC TY 09/22/2017 LUCILA GRACE MD Ot 272.4 HYPERLIPIDEMIA NEC/NOS 09/22/2017 LUCILA GRACE MD Ot 401.9 HYPERTENSION NOS 09/22/2017 LUCILA GRACE MD Ot 496 CHR AIRWAY OBSTRUCT NEC 09/22/2017 LUCILA GRACE MD Ot 786.05 SHORTNESS OF BREATH 09/22/2017 LUCILA GRACE MD Ot V58.69 OTH MED,LT,CURRENT USE 09/22/2017 CORNELIUS SMALLWOOD DO Ot 300.00 ANXIETY STATE NOS 09/22/2017 CORNELIUS SMALLWOOD DO Ot 429.3 CARDIOMEGALY 09/22/2017 CORNELIUS [place] DO Ot 444.22 LOWER EXTREMITY EMBOLISM 09/22/2017 CORNELIUS SMALLWOOD DO Ot 493.90 ASTHMA, UNSPECIFIED 09/22/2017 CORNELIUS SMALLWOOD DO Ot 729.81 SWELLING OF LIMB 09/22/2017 CORNELIUS SMALLWOOD DO Ot 786.09 RESPIRATORY ABNORM NEC 09/22/2017 CORNELIUS SMALLWOOD DO Ot 786.50 CHEST PAIN NOS 09/22/2017 CORNELIUS SMALLWOOD DO Ot 278.01 MORBID OBESITY 09/22/2017 CORNELIUS SMALLWOOD DO Ot 327.23 OBSTRUCTIVE SLEEP APNEA (ADULT) (PEDIATR 09/22/2017 CORNELIUS SMALLWOOD DO Ot 493.90 ASTHMA, UNSPECIFIED 09/22/2017 Ot 278.01 MORBID OBESITY 09/22/2017 Ot 300.00 ANXIETY STATE NOS 09/22/2017 Ot 327.23 OBSTRUCTIVE SLEEP APNEA (ADULT) (PEDIATR 09/22/2017 Ot 493.90 ASTHMA, UNSPECIFIED 09/22/2017 CL DO CORNELIUS Overton Ot 278.01 MORBID OBESITY 09/22/2017 CL DO CORNELIUS Overton Ot 300.00 ANXIETY STATE NOS 09/22/2017 CORNELIUS SMALLWOOD DO Ot 327.23 OBSTRUCTIVE SLEEP APNEA (ADULT) (PEDIATR 09/22/2017 CORNELIUS SMALLWOOD DO Ot 493.90 ASTHMA, UNSPECIFIED 09/22/2017 RODY GARCIA APRN Ot 415.19 OTH PULMON EMBOLISM/INFARCT 09/22/2017 RODY GARCAI APRN Ot 786.05 SHORTNESS OF BREATH 09/22/2017 RANDY NORMAN Ot E78.2 MIXED HYPERLIPIDEMIA 09/22/2017 RANDY NORMAN Ot I10 ESSENTIAL (PRIMARY) HYPERTENSION 09/22/2017 RANDY NORMAN Ot 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 09/22/2017 RANDY NORMAN Ot R26.89 OTHER ABNORMALITIES OF GAIT AND MOBILITY 09/22/2017 FANNY HINES, LUCILA Velazquez Ot I10 ESSENTIAL (PRIMARY) HYPERTENSION 09/22/2017 LUCILA GRACE MD Ot 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 09/22/2017 LUCILA GRACE MD Ot R26.89 OTHER ABNORMALITIES OF GAIT AND MOBILITY 09/22/2017 RANDY NORMAN Ot E78.2 MIXED HYPERLIPIDEMIA 09/22/2017 RANDY NORMAN Ot I10 ESSENTIAL (PRIMARY) HYPERTENSION 09/22/2017 RANDY NORMAN Ot 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 09/22/2017 RODY GARCIA APRN Ot I82.409 ACUTE EMBOLISM AND THOMBOS UNSP DEEP VN 09/22/2017 RANDY NORMAN Ot E78.5 HYPERLIPIDEMIA, UNSPECIFIED 09/22/2017 RANDY NORMAN Ot I10 ESSENTIAL (PRIMARY) HYPERTENSION 09/22/2017 RANDY NORMAN Ot 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 09/22/2017 RODY GARCIA APRN Ot G47.33 OBSTRUCTIVE SLEEP APNEA (ADULT) (PEDIATR 09/22/2017 RODY GARCIA 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 Ot J98.4 OTHER DISORDERS OF LUNG 09/22/2017 RODY GARCIA 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 Ot R06.02 SHORTNESS OF BREATH 09/22/2017 RODY GARCIA 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 Ot R09.02 HYPOXEMIA 09/22/2017 RODY GARCIA 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 Ot D64.9 ANEMIA, UNSPECIFIED 09/22/2017 HELIO CAICEDO MD Ot D64.9 ANEMIA, UNSPECIFIED 09/22/2017 HELIO CAICEDO MD Ot I12.9 HYPERTENSIVE CHRONIC KIDNEY DISEASE W ST 09/22/2017 HELIO CAICEDO MD Ot N18.4 CHRONIC KIDNEY DISEASE, STAGE 4 (SEVERE) 09/22/2017 HELIO CAICEDO MD Ot R60.0 LOCALIZED EDEMA 09/22/2017 RANDY NORMAN Ot E78.2 MIXED HYPERLIPIDEMIA 09/22/2017 RANDY NORMAN Ot I10 ESSENTIAL (PRIMARY) HYPERTENSION 09/22/2017 RANDY NORMAN Ot 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 09/22/2017 HELIO CAICEDO MD Ot D64.9 ANEMIA, UNSPECIFIED 09/22/2017 HELIO CAICEDO MD Ot I12.9 HYPERTENSIVE CHRONIC KIDNEY DISEASE W ST 09/22/2017 HELIO CAICEDO MD Ot N18.4 CHRONIC KIDNEY DISEASE, STAGE 4 (SEVERE) 09/22/2017 HELIO CAICEDO MD Ot R60.0 LOCALIZED EDEMA 09/22/2017 RANDY NORMAN Ot E78.2 MIXED HYPERLIPIDEMIA 09/22/2017 CRISTEL CAMARILLO RANDY K Ot I10 ESSENTIAL (PRIMARY) HYPERTENSION 09/22/2017 RANDY NORMAN K Ot I26.99 OTHER PULMONARY EMBOLISM WITHOUT ACUTE C 09/22/2017 RANDY NORMAN Ot 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 09/22/2017 CHELSY VILLAFANA Ot Z12.31 ENCNTR SCREEN MAMMOGRAM FOR MALIGNANT NE 09/22/2017 JAZMIN CAMPOS MD Ot D64.9 ANEMIA, UNSPECIFIED 09/22/2017 KHALID MD, JAZMIN R Ot N18.4 CHRONIC KIDNEY DISEASE, STAGE 4 (SEVERE) 09/22/2017 BETH HINES, JAZMIN R Ot E88.9 METABOLIC DISORDER, UNSPECIFIED 09/22/2017 BETH HINES, JAZMIN R Ot I12.9 HYPERTENSIVE CHRONIC KIDNEY DISEASE W ST 09/22/2017 BETH HINES, JAZMIN R Ot N18.4 CHRONIC KIDNEY DISEASE, STAGE 4 (SEVERE) 09/22/2017 BETH HINES, JAZMIN R Ot R60.9 EDEMA, UNSPECIFIED 09/22/2017 BETH HINES, JAZMIN R Ot E88.9 METABOLIC DISORDER, UNSPECIFIED 09/22/2017 BETH HINES, JAZMIN R Ot I12.9 HYPERTENSIVE CHRONIC KIDNEY DISEASE W ST 09/22/2017 BETH HINES, JAZMIN R Ot N18.4 CHRONIC KIDNEY DISEASE, STAGE 4 (SEVERE) 09/22/2017 JAZMIN CAMPOS MD R Ot R60.9 EDEMA, UNSPECIFIED 09/22/2017 OLESYA HINES, CLAUDIA A Ot E88.9 METABOLIC DISORDER, UNSPECIFIED 09/22/2017 OLESYA HINES, CLAUDIA A Ot I12.9 HYPERTENSIVE CHRONIC KIDNEY DISEASE W ST 09/22/2017 OLESYA HINES, CLAUDIA A Ot N18.4 CHRONIC KIDNEY DISEASE, STAGE 4 (SEVERE) 09/22/2017 OLESYA HINES, CLAUDIA A Ot R60.0 LOCALIZED EDEMA 09/22/2017 BETH HINES, JAZMIN R Ot E11.9 TYPE 2 DIABETES MELLITUS WITHOUT COMPLIC 09/22/2017 BETH HINES, JAZMIN R Ot I12.9 HYPERTENSIVE CHRONIC KIDNEY DISEASE W ST 09/22/2017 BETH HINES, JAZMIN R Ot N18.3 CHRONIC KIDNEY DISEASE, STAGE 3 (MODERAT 09/22/2017 BETH HINES, JAZMIN R Ot R60.9 EDEMA, UNSPECIFIED 09/22/2017 BETH HINES, JAZMIN R Ot E11.9 TYPE 2 DIABETES MELLITUS WITHOUT COMPLIC 09/22/2017 BETH HINES, JAZMIN R Ot I12.9 HYPERTENSIVE CHRONIC KIDNEY DISEASE W ST 09/22/2017 BETH HINES, JAZMIN R Ot N18.3 CHRONIC KIDNEY DISEASE, STAGE 3 (MODERAT 09/22/2017 BETH HINES, JAZMIN R Ot R60.9 EDEMA, UNSPECIFIED 09/23/2017 RANDY NORMAN Ot J44.9 CHRONIC OBSTRUCTIVE PULMONARY DISEASE, U 09/23/2017 RANDY NORMAN Ot R06.02 SHORTNESS OF BREATH 09/29/2017 Ot 793.89 OTH (ABN) FINDINGS ON RADIOLOGICAL EXAMI 09/29/2017 Ot 793.89 OTH (ABN) FINDINGS ON RADIOLOGICAL EXAMI 09/29/2017 RUBIN HINES, AIMEE Lagunas Ot 217 BENIGN NEOPLASM BREAST 09/29/2017 RUBIN HINES, AIMEE Lagunas Ot 793.89 OTH (ABN) FINDINGS ON RADIOLOGICAL EXAMI 09/29/2017 RUBIN HINES, AIMEE Lagunas Ot V67.09 SURGERY FOLLOW-UP, OTHER SURGERY 09/29/2017 RUBIN HINES, AIMEE Lagunas Ot 715.36 LOC OSTEOARTH NOS-L/LEG 09/29/2017 KATLYN SAXENA 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 Ot 453.81 ACUTE VENOUS EMBOLISM THROMBOSIS SUPER 09/29/2017 KATLYN SAXENA 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 Ot 564.00 UNSPEC CONSTIPATION 09/29/2017 KATLYN SAXENA E 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 Ot 789.00 ABDOMINAL PAIN, UNSPECIFIED SITE 09/29/2017 SOHAN HINES, JAY [place] Ot V72.84 EXAM PRE-OPERATIVE NOS 09/29/2017 MIQUEL HINES, YEE Butt Ot 715.36 LOC OSTEOARTH NOS-L/LEG 09/29/2017 YEE LAFLEUR MD Ot V72.63 PRE-PROCEDURAL LABORATORY EXAMINATION 09/29/2017 MIQUEL HINES, YEE Butt Ot V74.8 SCREEN-BACTERIAL DIS NEC 09/29/2017 JETHRO SHETH MD Ot 585.9 CHRONIC KIDNEY DISEASE, UNSPECIFIED 09/29/2017 JETHRO SHETH MD Ot 799.02 HYPOXEMIA 09/29/2017 LUCILA GRACE MD Ot 250.00 DIAB PURVI WO COMPL, TYPE II OR UNSPEC TY 09/29/2017 LUCILA GRACE MD Ot 272.4 HYPERLIPIDEMIA NEC/NOS 09/29/2017 LUCILA GRACE MD Ot 401.9 HYPERTENSION NOS 09/29/2017 LUCILA GRACE MD Ot 496 CHR AIRWAY OBSTRUCT NEC 09/29/2017 LUCILA GRACE MD Ot 786.05 SHORTNESS OF BREATH 09/29/2017 LUCILA GRACE MD Ot V58.69 OT MED,LT,CURRENT USE 09/29/2017 CORNELIUS SMALLWOOD DO Ot 300.00 ANXIETY STATE NOS 09/29/2017 CORNELIUS SMALL[place]OD DO Ot 429.3 CARDIOMEGALY 09/29/2017 CORNELIUS SMALL[place]OD DO Ot 444.22 LOWER EXTREMITY EMBOLISM 09/29/2017 CORNELIUS SMALLWOOD DO Ot 493.90 ASTHMA, UNSPECIFIED 09/29/2017 CORNELIUS SMALLWOOD DO Ot 729.81 SWELLING OF LIMB 09/29/2017 CORNELIUS SMALLWOOD DO Ot 786.09 RESPIRATORY ABNORM NEC 09/29/2017 CORNELIUS SMALLWOOD DO Ot 786.50 CHEST PAIN NOS 09/29/2017 CORNELIUS SMALLWOOD DO Ot 278.01 MORBID OBESITY 09/29/2017 CORNELIUS SMALLWOOD DO Ot 327.23 OBSTRUCTIVE SLEEP APNEA (ADULT) (PEDIATR 09/29/2017 CORNELIUS SMALLWOOD DO Ot 493.90 ASTHMA, UNSPECIFIED 09/29/2017 Ot 278.01 MORBID OBESITY 09/29/2017 Ot 300.00 ANXIETY STATE NOS 09/29/2017 Ot 327.23 OBSTRUCTIVE SLEEP APNEA (ADULT) (PEDIATR 09/29/2017 Ot 493.90 ASTHMA, UNSPECIFIED 09/29/2017 CORNELIUS SMALLWOOD DO Ot 278.01 MORBID OBESITY 09/29/2017 CORNELIUS SMALLWOOD DO Ot 300.00 ANXIETY STATE NOS 09/29/2017 CORNELIUS SMALLWOOD DO Ot 327.23 OBSTRUCTIVE SLEEP APNEA (ADULT) (PEDIATR 09/29/2017 CORNELIUS SMALLWOOD DO Ot 493.90 ASTHMA, UNSPECIFIED 09/29/2017 RODY GARCIA APRN Ot 415.19 OT PULMON EMBOLISM/INFARCT 09/29/2017 RODY GARCIA APRN Ot 786.05 SHORTNESS OF BREATH 09/29/2017 RANDY NORMAN Ot E78.2 MIXED HYPERLIPIDEMIA 09/29/2017 RANDY NORMAN Ot I10 ESSENTIAL (PRIMARY) HYPERTENSION 09/29/2017 RANDY NORMAN Ot 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 09/29/2017 RANDY NORMAN Ot R26.89 OTHER ABNORMALITIES OF GAIT AND MOBILITY 09/29/2017 LUCILA GRACE MD Ot I10 ESSENTIAL (PRIMARY) HYPERTENSION 09/29/2017 LUCILA GRACE MD Ot 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 09/29/2017 LUCILA GRACE MD Ot R26.89 OTHER ABNORMALITIES OF GAIT AND MOBILITY 09/29/2017 RANDY NORMAN Ot E78.2 MIXED HYPERLIPIDEMIA 09/29/2017 RANDY NORMAN Ot I10 ESSENTIAL (PRIMARY) HYPERTENSION 09/29/2017 RANDY NORMAN Ot 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 09/29/2017 RODY GARCIA APRN Ot I82.409 ACUTE EMBOLISM AND THOMBOS UNSP DEEP VN 09/29/2017 RANDY NORMAN Ot E78.5 HYPERLIPIDEMIA, UNSPECIFIED 09/29/2017 RANDY NORMAN Ot I10 ESSENTIAL (PRIMARY) HYPERTENSION 09/29/2017 RANDY NORMAN Ot 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 09/29/2017 RODY GARCIA APRN Ot G47.33 OBSTRUCTIVE SLEEP APNEA (ADULT) (PEDIATR 09/29/2017 RODY GARCIA APRN Ot J98.4 OTHER DISORDERS OF LUNG 09/29/2017 RODY GARCIA APRN Ot R06.02 SHORTNESS OF BREATH 09/29/2017 RODY GARCIA APRN Ot R09.02 HYPOXEMIA 09/29/2017 RODY GARCIA APRN Ot D64.9 ANEMIA, UNSPECIFIED 09/29/2017 HELIO CAICEDO MD Ot D64.9 ANEMIA, UNSPECIFIED 09/29/2017 HELIO CAICEDO MD Ot I12.9 HYPERTENSIVE CHRONIC KIDNEY DISEASE W ST 09/29/2017 HELIO CAICEDO MD Ot N18.4 CHRONIC KIDNEY DISEASE, STAGE 4 (SEVERE) 09/29/2017 HELIO CAICEDO MD Ot R60.0 LOCALIZED EDEMA 09/29/2017 RANDY NORMAN Ot E78.2 MIXED HYPERLIPIDEMIA 09/29/2017 RANDY NORMAN Ot I10 ESSENTIAL (PRIMARY) HYPERTENSION 09/29/2017 RANDY NORMAN Ot 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 09/29/2017 HELIO CAICEDO MD Ot D64.9 ANEMIA, UNSPECIFIED 09/29/2017 HELIO CAICEDO MD Ot I12.9 HYPERTENSIVE CHRONIC KIDNEY DISEASE W ST 09/29/2017 HELIO CAICEDO MD Ot N18.4 CHRONIC KIDNEY DISEASE, STAGE 4 (SEVERE) 09/29/2017 HELIO CAICEDO MD Ot R60.0 LOCALIZED EDEMA 09/29/2017 MARIELY-JENNIFER PA, RANDY K Ot E78.2 MIXED HYPERLIPIDEMIA 09/29/2017 MARIELY-JENNIFER PA, RANDY K Ot I10 ESSENTIAL (PRIMARY) HYPERTENSION 09/29/2017 MARIELY-JENNIFER PA, RANDY K Ot I26.99 OTHER PULMONARY EMBOLISM WITHOUT ACUTE C 09/29/2017 MARIELY-JENNIFER PA, RANDY K Ot 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 09/29/2017 BRODERICK CHELSY Janneth MANAGER DIVISION Ot Z12.31 ENCNTR SCREEN MAMMOGRAM FOR MALIGNANT NE 09/29/2017 JAZMIN CAMPOS MD Ot D64.9 ANEMIA, UNSPECIFIED 09/29/2017 JAZMIN CAMPOS MD R Ot N18.4 CHRONIC KIDNEY DISEASE, STAGE 4 (SEVERE) 09/29/2017 JAZMIN CAMPOS MD Ot E88.9 METABOLIC DISORDER, UNSPECIFIED 09/29/2017 JAZMIN CAMPOS MD Ot I12.9 HYPERTENSIVE CHRONIC KIDNEY DISEASE W ST 09/29/2017 JAZMIN CAMPOS MD Ot N18.4 CHRONIC KIDNEY DISEASE, STAGE 4 (SEVERE) 09/29/2017 JAZMIN CAMPOS MD Ot R60.9 EDEMA, UNSPECIFIED 09/29/2017 JAZMIN CAMPOS MD R Ot E88.9 METABOLIC DISORDER, UNSPECIFIED 09/29/2017 JAZMIN CAMPOS MD R Ot I12.9 HYPERTENSIVE CHRONIC KIDNEY DISEASE W ST 09/29/2017 JAZMIN CAMPOS MD Ot N18.4 CHRONIC KIDNEY DISEASE, STAGE 4 (SEVERE) 09/29/2017 JAZMIN CAMPOS MD R Ot R60.9 EDEMA, UNSPECIFIED 09/29/2017 CLAUDIA DACOSTA MD Ot E88.9 METABOLIC DISORDER, UNSPECIFIED 09/29/2017 IJADUOLA MD, EWALOLA A Ot I12.9 HYPERTENSIVE CHRONIC KIDNEY DISEASE W ST 09/29/2017 OLESYA HINES, CLAUDIA Reece Ot N18.4 CHRONIC KIDNEY DISEASE, STAGE 4 (SEVERE) 09/29/2017 OLESYA HINES, CLAUDIA Reece Ot R60.0 LOCALIZED EDEMA 09/29/2017 BETH HINES, JAZMIN Sanchez Ot E11.9 TYPE 2 DIABETES MELLITUS WITHOUT COMPLIC 09/29/2017 BETH HINES, JAZMIN Sanchez Ot I12.9 HYPERTENSIVE CHRONIC KIDNEY DISEASE W ST 09/29/2017 BETH HINES, JAZMIN R Ot N18.3 CHRONIC KIDNEY DISEASE, STAGE 3 (MODERAT 09/29/2017 BETH HINES, JAZMIN R Ot R60.9 EDEMA, UNSPECIFIED 09/29/2017 BETH HINES, JAZMIN R Ot E11.9 TYPE 2 DIABETES MELLITUS WITHOUT COMPLIC 09/29/2017 BETH HINES, JAZMIN R Ot I12.9 HYPERTENSIVE CHRONIC KIDNEY DISEASE W ST 09/29/2017 BETH HINES, JAZMIN Sanchez Ot N18.3 CHRONIC KIDNEY DISEASE, STAGE 3 (MODERAT 09/29/2017 BETH HINES, JAZMIN R Ot R60.9 EDEMA, UNSPECIFIED 09/29/2017 RANDY NORMAN Ot J44.9 CHRONIC OBSTRUCTIVE PULMONARY DISEASE, U 09/29/2017 RANDY NORMAN Ot R06.02 SHORTNESS OF BREATH Procedures Code Description [place] [address] MAMMOGRAM DX, RIGHT 04/22/2012 21565 A1C (IN-HOUSE) 07/19/2012 14837 JOINT INJECTION- LARGE JOINT (SPECIFY MEDCIN DESCRIPTION) 08/02/2012 01269 ROUTINE VENIPUNCTURE 11/10/2012 95507 JOINT INJECTION- LARGE JOINT (SPECIFY MEDCIN DESCRIPTION) 11/10/2012 74696 MAMMOGRAM DX, RIGHT 11/10/2012 60815 CMP 11/10/2012 03862 LIPID PANEL 11/10/2012 6165670 GFR CALC (RESULT ONLY) 11/10/2012 16660 CBC 11/10/2012 55095 A1C (IN-HOUSE) 12/06/2012 02396 MICRO ALBUMIN-IN HOUSE 12/06/2012 81590 ROUTINE VENIPUNCTURE 01/03/2013 12239 XRAY LUMBAR SPINE MIN 4 VIEWS 01/03/2013 85342 XRAY KNEE RIGHT 3 VIEWS 01/03/2013 31514 BMP 01/03/2013 35002 ROUTINE VENIPUNCTURE 02/10/2013 54004 JOINT INJECTION- LARGE JOINT (SPECIFY MEDCIN DESCRIPTION) 02/10/2013 59550 BMP 02/10/2013 Nephrolog Gregorio Young 02/10/2013 39016 ROUTINE VENIPUNCTURE 02/20/2013 28454 RENAL PROFILE 02/20/2013 92065 CBC 02/20/2013 42301 CULTURE URINE 02/20/2013 PRO/CRE URINE PROTEIN TO CREATNINE RATIO 02/20/2013 55960 ROUTINE VENIPUNCTURE 03/20/2013 85030 CMP 03/20/2013 68767 BNP 03/20/2013 64271 CULTURE URINE 03/20/2013 05098 A1C (IN-HOUSE) 03/20/2013 73457 UA LONG DIP 03/20/2013 35803 ROUTINE VENIPUNCTURE 2013 79519 RENAL PROFILE 2013 86921 CBC 2013 PRO/CRE URINE PROTEIN TO CREATNINE RATIO 2013 General S Jay Mendez 04/11/2013 96391 XRAY ABDOMEN 2 VIEWS 04/19/2013 05639 VENOUS DOPPLER UNILATERAL/ LIMITED 04/26/2013 81486 VENOUS DOPPLER UNILATERAL/ LIMITED 04/26/2013 15385 JOINT INJECTION- LARGE JOINT (SPECIFY MEDCIN DESCRIPTION) 04/27/2013 54316 XRAY ABDOMEN 2 VIEWS 05/08/2013 OrthopYee Hanna 05/25/2013 58449 EKG, TRACING (IN-HOUSE) 06/15/2013 10948 SLEEP STUDY ([facility]- SLEEP STUDY) 07/18/2013 81.54 TOTAL KNEE REPLACEMENT 07/19/2013 64549 JOINT INJECTION- LARGE JOINT (SPECIFY MEDCIN DESCRIPTION) 08/16/2013 52435 ROUTINE VENIPUNCTURE 08/21/2013 84205 GLUCOSE FINGER STICK 08/21/2013 27340 A1C (IN-HOUSE) 08/21/2013 39768 RENAL PROFILE 08/21/2013 41629 A1C (RML) 08/21/2013 51443 CBC 08/21/2013 PRO/CRE URINE PROTEIN TO CREATNINE RATIO 08/21/2013 70437 PULMONARY FUNCTION TEST 10/03/2013 Cardiolog Lucila Grace 10/03/2013 Pulmonary Cornelius Smallwood 12/05/2013 33566 OXIMETRY 01/18/2014 06936 A1C (IN-HOUSE) 01/22/2014 33915 ROUTINE VENIPUNCTURE 03/21/2014 02874 TRIGGER POINT INJ/1-2 MUS 03/21/2014 34530 [facility] 03/21/2014 55058 A1C (IN-HOUSE) 05/24/2014 69300 ROUTINE VENIPUNCTURE 07/18/2014 54475 UA LONG DIP 07/18/2014 67245 CMP 07/18/2014 43865 CULTURE URINE 07/18/2014 56179 XRAY ABDOMEN 2 VIEWS 08/17/2014 Results Test Result Range Serum or plasma renal function panel (Na, K, Cl, CO2, BUN, Cr, glucose,Ca, phos , alb) - 05/13/16 14:05 Serum or plasma sodium measurement (moles/volume) 141 mmol/L 135-145 Serum or plasma potassium measurement (moles/volume) 4.0 mmol/L 3.6-5.0 Serum or plasma chloride measurement (moles/volume) 102 mmol/L 98-107 Carbon dioxide 31 mmol/L 21-32 Serum or plasma anion gap determination (moles/volume) 8 mmol/L 5-14 Serum or plasma urea nitrogen measurement (mass/volume) 32 mg/dL 7-18 Serum or plasma creatinine measurement (mass/volume) 1.47 mg/dL 0.60-1.30 Serum or plasma urea nitrogen/creatinine mass ratio 22 NRG Serum or plasma creatinine measurement with calculation of estimated glomerular filtration rate 36 NRG Serum or plasma glucose measurement (mass/volume) 257 mg/dL 70-105 Serum or plasma calcium measurement (mass/volume) 8.9 mg/dL 8.5-10.1 Serum or plasma albumin measurement (mass/volume) 3.5 g/dL 3.2-4.5 Serum or plasma phosphate measurement (mass/volume) 3.3 mg/dL 2.3-4.7 Magnesium - 05/13/16 14:05 Magnesium 1.9 mg/dL 1.8-2.4 Complete blood count (CBC) with automated white blood cell (WBC) differential - 05/13/16 14:05 Blood leukocytes automated count (number/volume) 8.0 10*3/uL 4.3-11.0 Blood erythrocytes automated count (number/volume) 4.01 10*6/uL 4.35-5.85 Venous blood hemoglobin measurement (mass/volume) 11.7 g/dL 11.5-16.0 Blood hematocrit (volume fraction) 37 % 35-52 Automated erythrocyte mean corpuscular volume 91 [foz_us] 80-99 Automated erythrocyte mean corpuscular hemoglobin (mass per erythrocyte) 29 pg 25-34 Automated erythrocyte mean corpuscular hemoglobin concentration measurement ( mass/volume) 32 g/dL 32-36 Automated erythrocyte distribution width ratio 13.6 % 10.0-14.5 Automated blood platelet count (count/volume) 169 10*3/uL 130-400 Automated blood platelet mean volume measurement 12.0 [foz_us] 7.4-10.4 Automated blood neutrophils/100 leukocytes 70 % 42-75 Automated blood lymphocytes/100 leukocytes 20 % 12-44 Blood monocytes/100 leukocytes 7 % 0-12 Automated blood eosinophils/100 leukocytes 4 % 0-10 Automated blood basophils/100 leukocytes 0 % 0-10 Blood neutrophils automated count (number/volume) 5.6 10*3 1.8-7.8 Blood lymphocytes automated count (number/volume) 1.6 10*3 1.0-4.0 Blood monocytes automated count (number/volume) 0.6 10*3 0.0-1.0 Automated eosinophil count 0.3 10*3/uL 0.0-0.3 Automated blood basophil count (count/volume) 0.0 10*3/uL 0.0-0.1 Complete urinalysis with reflex to culture - 05/13/16 14:10 Urine color determination YELLOW NRG Urine clarity determination CLEAR NRG Urine pH measurement by test strip 6 5-9 Specific gravity of urine by test strip 1.010 1.016- 1.022 Urine protein assay by test strip, semi-quantitative 2+ NEGATIVE Urine glucose detection by automated test strip NEGATIVE NEGATIVE Erythrocytes detection in urine sediment by light microscopy NEGATIVE NEGATIVE Urine ketones detection by automated test strip NEGATIVE NEGATIVE Urine nitrite detection by test strip NEGATIVE NEGATIVE Urine total bilirubin detection by test strip NEGATIVE NEGATIVE Urine urobilinogen measurement by automated test strip (mass/volume) NORMAL NORMAL Urine leukocyte esterase detection by dipstick NEGATIVE NEGATIVE Automated urine sediment erythrocyte count by microscopy (number/high power field) NONE NRG Automated urine sediment leukocyte count by microscopy (number/high power field ) [HPF] NRG Bacteria detection in urine sediment by light microscopy TRACE NRG Squamous epithelial cells detection in urine sediment by light microscopy 5-10 NRG Crystals detection in urine sediment by light microscopy NONE NRG Casts detection in urine sediment by light microscopy NONE NRG Mucus detection in urine sediment by light microscopy NEGATIVE NRG Complete urinalysis with reflex to culture NO NRG Urine protein/creatinine mass ratio - 05/13/16 14:10 Urine protein measurement (mass/volume) 15 mg/dL 6-12 Urine creatinine measurement (mass/volume) 31 mg/dL 30- 125 Urine protein/creatinine mass ratio 0.48 NRG CBC With Differential/Platelet - 06/10/16 14:56 WBC 12.3 x10E3/uL 3.4-10.8 RBC 3.94 x10E6/uL 3.77-5.28 Hemoglobin 11.2 g/dL 11.1-15.9 Hematocrit 35.5 % 34.0-46.6 MCV 90 fL 79-97 MCH 28.4 pg 26.6-33.0 MCHC 31.5 g/dL 31.5-35.7 RDW 15.0 % 12.3-15.4 Platelets 284 x10E3/uL 150-379 Neutrophils 65 % Lymphs 22 % Monocytes 7 % Eos 3 % Basos 0 % Neutrophils (Absolute) 8.1 x10E3/uL 1.4-7.0 Lymphs (Absolute) 2.7 x10E3/uL 0.7-3.1 Monocytes(Absolute) 0.8 x10E3/uL 0.1-0.9 Eos (Absolute) 0.3 x10E3/uL 0.0-0.4 Baso (Absolute) 0.0 x10E3/uL 0.0-0.2 Immature Granulocytes 3 % Immature Grans (Abs) 0.4 x10E3/uL 0.0-0.1 Comp. Metabolic Panel (14) - 06/10/16 14:56 Glucose, Serum 104 mg/dL 65-99 BUN 32 mg/dL 8-27 Creatinine, Serum 1.77 mg/dL 0.57-1.00 eGFR If NonAfricn Am 30 mL/min/1.73 >59 eGFR If Africn Am 34 mL/min/1.73 >59 BUN/Creatinine Ratio 18 11-26 Sodium, Serum 143 mmol/L 136-144 Potassium, Serum 4.7 mmol/L 3.5-5.2 Chloride, Serum 98 mmol/L 97-106 Carbon Dioxide, Total 31 mmol/L 18-29 Calcium, Serum 9.1 mg/dL 8.7-10.3 Protein, Total, Serum 6.8 g/dL 6.0-8.5 Albumin, Serum 3.5 g/dL 3.6-4.8 Globulin, Total 3.3 g/dL 1.5-4.5 A/G Ratio 1.1 1.1-2.5 Bilirubin, Total 0.3 mg/dL 0.0-1.2 Alkaline Phosphatase, S 177 IU/L 39-117 AST (SGOT) 23 IU/L 0-40 ALT (SGPT) 20 IU/L 0-32 Lipid Panel - 06/10/16 14:56 Cholesterol, Total 149 mg/dL 100-199 Triglycerides 171 mg/dL 0-149 HDL Cholesterol 29 mg/dL >39 VLDL Cholesterol Omid 34 mg/dL 5-40 LDL Cholesterol Calc 86 mg/dL 0-99 CBC With Differential/Platelet - 09/10/16 14:09 WBC 9.5 x10E3/uL 3.4-10.8 RBC 4.15 x10E6/uL 3.77-5.28 Hemoglobin 11.9 g/dL 11.1-15.9 Hematocrit 37.1 % 34.0-46.6 MCV 89 fL 79-97 MCH 28.7 pg 26.6-33.0 MCHC 32.1 g/dL 31.5-35.7 RDW 14.2 % 12.3-15.4 Platelets 251 x10E3/uL 150-379 Neutrophils 65 % Lymphs 21 % Monocytes 11 % Eos 2 % Basos 0 % Neutrophils (Absolute) 6.2 x10E3/uL 1.4-7.0 Lymphs (Absolute) 2.0 x10E3/uL 0.7-3.1 Monocytes(Absolute) 1.0 x10E3/uL 0.1-0.9 Eos (Absolute) 0.2 x10E3/uL 0.0-0.4 Baso (Absolute) 0.0 x10E3/uL 0.0-0.2 Immature Granulocytes 1 % Immature Grans (Abs) 0.1 x10E3/uL 0.0-0.1 Comp. Metabolic Panel (14) - 09/10/16 14:09 Glucose, Serum 115 mg/dL 65-99 BUN 36 mg/dL 8-27 Creatinine, Serum 1.84 mg/dL 0.57-1.00 eGFR If NonAfricn Am 29 mL/min/1.73 >59 eGFR If Africn Am 33 mL/min/1.73 >59 BUN/Creatinine Ratio 20 11-26 Sodium, Serum 143 mmol/L 134-144 Potassium, Serum 4.4 mmol/L 3.5-5.2 Chloride, Serum 95 mmol/L 96-106 Carbon Dioxide, Total 30 mmol/L 18-29 Calcium, Serum 9.6 mg/dL 8.7-10.3 Protein, Total, Serum 7.2 g/dL 6.0-8.5 Albumin, Serum 3.9 g/dL 3.6-4.8 Globulin, Total 3.3 g/dL 1.5-4.5 A/G Ratio 1.2 1.1-2.5 Bilirubin, Total 0.3 mg/dL 0.0-1.2 Alkaline Phosphatase, S 180 IU/L 39-117 AST (SGOT) 38 IU/L 0-40 ALT (SGPT) 51 IU/L 0-32 Bacterial urine culture - 10/17/16 09:20 Bacterial urine culture [id number] NRG COLONY COUNT >100,000/ML NR FTX;REPORTABLE SENSITIVITY REPORTED AT 1617, 4--17 [facility] FREE TEXT ENTRY 3 MIXED GRAM POSITIVE [place] Bacterial susceptibility panel - 10/17/16 09:20 Gentamicin susceptibility test by minimum inhibitory concentration < = NRG Trimethoprim/sulfamethoxazole susceptibility test by minimum inhibitoryconcentration <= NRG Ampicillin susceptibility test by minimum inhibitory concentration < = NRG Tobramycin susceptibility test by minimum inhibitory concentration < = NRG Cefazolin susceptibility test by minimum inhibitory concentration < = NRG Ceftriaxone susceptibility test by minimum inhibitory concentration <= NRG Ampicillin/sulbactam susceptibility test by minimum inhibitory concentration <= NRG Piperacillin/tazobactam susceptibility test by minimum inhibitory concentration <= NRG Ciprofloxacin susceptibility test by minimum inhibitory concentration <= NRG Meropenem susceptibility test by minimum inhibitory concentration < = NRG Nitrofurantoin susceptibility test by minimum inhibitory concentration <= NRG Aztreonam susceptibility test by minimum inhibitory concentration < = NRG Extended spectrum beta lactamase (ESBL) producing bacteria susceptibility test by minimum inhibitory concentration - [facility] Complete blood count (CBC) with automated white blood cell (WBC) differential - 12/10/16 09:40 Blood leukocytes automated count (number/volume) 7.4 10*3/uL 4.3-11.0 Blood erythrocytes automated count (number/volume) 3.92 10*6/uL 4.35-5.85 Venous blood hemoglobin measurement (mass/volume) 11.6 g/dL 11.5-16.0 Blood hematocrit (volume fraction) 37 % 35-52 Automated erythrocyte mean corpuscular volume 95 [foz_us] 80-99 Automated erythrocyte mean corpuscular hemoglobin (mass per erythrocyte) 30 pg 25-34 Automated erythrocyte mean corpuscular hemoglobin concentration measurement ( mass/volume) 31 g/dL 32-36 Automated erythrocyte distribution width ratio 13.3 % 10.0-14.5 Automated blood platelet count (count/volume) 203 10*3/uL 130-400 Automated blood platelet mean volume measurement 11.5 [foz_us] 7.4-10.4 Automated blood neutrophils/100 leukocytes 69 % 42-75 Automated blood lymphocytes/100 leukocytes 20 % 12-44 Blood monocytes/100 leukocytes 7 % 0-12 Automated blood eosinophils/100 leukocytes 3 % 0-10 Automated blood basophils/100 leukocytes 1 % 0-10 Blood neutrophils automated count (number/volume) 5.1 10*3 1.8-7.8 Blood lymphocytes automated count (number/volume) 1.5 10*3 1.0-4.0 Blood monocytes automated count (number/volume) 0.5 10*3 0.0-1.0 Automated eosinophil count 0.3 10*3/uL 0.0-0.3 Automated blood basophil count (count/volume) 0.0 10*3/uL 0.0-0.1 Serum or plasma renal function panel (Na, K, Cl, CO2, BUN, Cr, glucose,Ca, phos , alb) - 12/10/16 09:40 Serum or plasma sodium measurement (moles/volume) 143 mmol/L 135-145 Serum or plasma potassium measurement (moles/volume) 4.0 mmol/L 3.6-5.0 Serum or plasma chloride measurement (moles/volume) 106 mmol/L 98-107 Carbon dioxide 29 mmol/L 21-32 Serum or plasma anion gap determination (moles/volume) 8 mmol/L 5-14 Serum or plasma urea nitrogen measurement (mass/volume) 27 mg/dL 7-18 Serum or plasma creatinine measurement (mass/volume) 1.64 mg/dL 0.60-1.30 Serum or plasma urea nitrogen/creatinine mass ratio 16 NRG Serum or plasma creatinine measurement with calculation of estimated glomerular filtration rate 32 NRG Serum or plasma glucose measurement (mass/volume) 136 mg/dL 70-105 Serum or plasma calcium measurement (mass/volume) 9.3 mg/dL 8.5-10.1 Serum or plasma albumin measurement (mass/volume) 3.5 g/dL 3.2-4.5 Serum or plasma phosphate measurement (mass/volume) 2.8 mg/dL 2.3-4.7 Serum or plasma intact pararthyroid hormone measurement (mass/volume) - 09:40 Serum or plasma intact parathyroid hormone measurement (mass/volume) 53.0 pg/mL 10.0-65.0 Bio-intact parathyroid hormone (PTH) measurement with calcium 8.9 % 8.5-10.5 25-hydroxyvitamin D measurement - 12/10/16 09:40 25-hydroxy vitamin D measurement 47 % 30-100 Complete urinalysis with reflex to culture - 12/10/16 09:45 Urine color determination YELLOW NRG Urine clarity determination CLEAR NRG Urine pH measurement by test strip 6 5-9 Specific gravity of urine by test strip 1.020 1.016- 1.022 Urine protein assay by test strip, semi-quantitative 2+ NEGATIVE Urine glucose detection by automated test strip NEGATIVE NEGATIVE Erythrocytes detection in urine sediment by light microscopy NEGATIVE NEGATIVE Urine ketones detection by automated test strip NEGATIVE NEGATIVE Urine nitrite detection by test strip NEGATIVE NEGATIVE Urine total bilirubin detection by test strip NEGATIVE NEGATIVE Urine urobilinogen measurement by automated test strip (mass/volume) NORMAL NORMAL Urine leukocyte esterase detection by dipstick 1+ NEGATIVE Automated urine sediment erythrocyte count by microscopy (number/high power field) NONE NRG Automated urine sediment leukocyte count by microscopy (number/high power field ) [HPF] NRG Bacteria detection in urine sediment by light microscopy MODERATE NRG Squamous epithelial cells detection in urine sediment by light microscopy 10-25 NRG Crystals detection in urine sediment by light microscopy NONE NRG Casts detection in urine sediment by light microscopy NONE NRG Mucus detection in urine sediment by light microscopy NEGATIVE NRG Complete urinalysis with reflex to culture YES NRG Urine protein/creatinine mass ratio - 12/10/16 09:45 Urine protein measurement (mass/volume) 24 mg/dL 6-12 Urine creatinine measurement (mass/volume) 96 mg/dL 30- 125 Urine protein/creatinine mass ratio 0.25 NRG Bacterial urine culture - 12/10/16 09:45 URINE CULTURE RESULTS MORE THAN 3 ISOLATES NRG Urine protein/creatinine mass ratio - 01/14/17 12:46 Urine protein measurement (mass/volume) 24 mg/dL 6-12 Urine creatinine measurement (mass/volume) 132 mg/dL 30- 125 Urine protein/creatinine mass ratio 0.18 NRG Complete urinalysis with reflex to culture - 01/14/17 12:46 Urine color determination YELLOW NRG Urine clarity determination CLEAR NRG Urine pH measurement by test strip 5 5-9 Specific gravity of urine by test strip 1.015 1.016- 1.022 Urine protein assay by test strip, semi-quantitative 2+ NEGATIVE Urine glucose detection by automated test strip NEGATIVE NEGATIVE Erythrocytes detection in urine sediment by light microscopy NEGATIVE NEGATIVE Urine ketones detection by automated test strip NEGATIVE NEGATIVE Urine nitrite detection by test strip NEGATIVE NEGATIVE Urine total bilirubin detection by test strip NEGATIVE NEGATIVE Urine urobilinogen measurement by automated test strip (mass/volume) NORMAL NORMAL Urine leukocyte esterase detection by dipstick 1+ NEGATIVE Automated urine sediment erythrocyte count by microscopy (number/high power field) NONE NRG Automated urine sediment leukocyte count by microscopy (number/high power field ) [HPF] NRG Bacteria detection in urine sediment by light microscopy FEW NRG Squamous epithelial cells detection in urine sediment by light microscopy 5-10 NRG Crystals detection in urine sediment by light microscopy NONE NRG Casts detection in urine sediment by light microscopy NONE NRG Mucus detection in urine sediment by light microscopy NEGATIVE NRG Complete urinalysis with reflex to culture NO NRG Bacterial urine culture - 01/14/17 12:46 URINE CULTURE RESULTS <10,000/ML NRG Complete blood count (CBC) with automated white blood cell (WBC) differential - 01/14/17 13:01 Blood leukocytes automated count (number/volume) 11.2 10*3/uL 4.3-11.0 Blood erythrocytes automated count (number/volume) 4.12 10*6/uL 4.35-5.85 Venous blood hemoglobin measurement (mass/volume) 12.1 g/dL 11.5-16.0 Blood hematocrit (volume fraction) 40 % 35-52 Automated erythrocyte mean corpuscular volume 96 [foz_us] 80-99 Automated erythrocyte mean corpuscular hemoglobin (mass per erythrocyte) 29 pg 25-34 Automated erythrocyte mean corpuscular hemoglobin concentration measurement ( mass/volume) 31 g/dL 32-36 Automated erythrocyte distribution width ratio 13.4 % 10.0-14.5 Automated blood platelet count (count/volume) 210 10*3/uL 130-400 Automated blood platelet mean volume measurement 11.5 [foz_us] 7.4-10.4 Automated blood neutrophils/100 leukocytes 63 % 42-75 Automated blood lymphocytes/100 leukocytes 24 % 12-44 Blood monocytes/100 leukocytes 10 % 0-12 Automated blood eosinophils/100 leukocytes 3 % 0-10 Automated blood basophils/100 leukocytes 0 % 0-10 Blood neutrophils automated count (number/volume) 7.1 10*3 1.8-7.8 Blood lymphocytes automated count (number/volume) 2.7 10*3 1.0-4.0 Blood monocytes automated count (number/volume) 1.1 10*3 0.0-1.0 Automated eosinophil count 0.3 10*3/uL 0.0-0.3 Automated blood basophil count (count/volume) 0.0 10*3/uL 0.0-0.1 Serum or plasma renal function panel (Na, K, Cl, CO2, BUN, Cr, glucose,Ca, phos , alb) - 01/14/17 13:01 Serum or plasma sodium measurement (moles/volume) 141 mmol/L 135-145 Serum or plasma potassium measurement (moles/volume) 4.1 mmol/L 3.6-5.0 Serum or plasma chloride measurement (moles/volume) 100 mmol/L 98-107 Carbon dioxide 29 mmol/L 21-32 Serum or plasma anion gap determination (moles/volume) 12 mmol/L 5-14 Serum or plasma urea nitrogen measurement (mass/volume) 32 mg/dL 7-18 Serum or plasma creatinine measurement (mass/volume) 2.07 mg/dL 0.60-1.30 Serum or plasma urea nitrogen/creatinine mass ratio 15 NRG Serum or plasma creatinine measurement with calculation of estimated glomerular filtration rate 24 NRG Serum or plasma glucose measurement (mass/volume) 120 mg/dL 70-105 Serum or plasma calcium measurement (mass/volume) 9.8 mg/dL 8.5-10.1 Serum or plasma albumin measurement (mass/volume) 3.8 g/dL 3.2-4.5 Serum or plasma phosphate measurement (mass/volume) 3.1 mg/dL 2.3-4.7 Serum or plasma intact pararthyroid hormone measurement (mass/volume) - 13:01 Serum or plasma intact parathyroid hormone measurement (mass/volume) 55.0 pg/mL 10.0-65.0 Bio-intact parathyroid hormone (PTH) measurement with calcium 9.6 % 8.5-10.5 25-hydroxyvitamin D measurement - 01/14/17 13:01 25-hydroxy vitamin D measurement 64 % 30-100 Complete blood count (CBC) with automated white blood cell (WBC) differential - 03/28/17 11:48 Blood leukocytes automated count (number/volume) 9.8 10*3/uL 4.3-11.0 Blood erythrocytes automated count (number/volume) 4.06 10*6/uL 4.35-5.85 Venous blood hemoglobin measurement (mass/volume) 11.9 g/dL 11.5-16.0 Blood hematocrit (volume fraction) 39 % 35-52 Automated erythrocyte mean corpuscular volume 96 [foz_us] 80-99 Automated erythrocyte mean corpuscular hemoglobin (mass per erythrocyte) 29 pg 25-34 Automated erythrocyte mean corpuscular hemoglobin concentration measurement ( mass/volume) 31 g/dL 32-36 Automated erythrocyte distribution width ratio 13.1 % 10.0-14.5 Automated blood platelet count (count/volume) 194 10*3/uL 130-400 Automated blood platelet mean volume measurement 11.4 [foz_us] 7.4-10.4 Automated blood neutrophils/100 leukocytes 67 % 42-75 Automated blood lymphocytes/100 leukocytes 20 % 12-44 Blood monocytes/100 leukocytes 8 % 0-12 Automated blood eosinophils/100 leukocytes 4 % 0-10 Automated blood basophils/100 leukocytes 0 % 0-10 Blood neutrophils automated count (number/volume) 6.6 10*3 1.8-7.8 Blood lymphocytes automated count (number/volume) 2.0 10*3 1.0-4.0 Blood monocytes automated count (number/volume) 0.8 10*3 0.0-1.0 Automated eosinophil count 0.4 10*3/uL 0.0-0.3 Automated blood basophil count (count/volume) 0.0 10*3/uL 0.0-0.1 Complete urinalysis with reflex to culture - 03/28/17 11:48 Urine color determination YELLOW NRG Urine clarity determination SLIGHTLY CLOUDY NRG Urine pH measurement by test strip 6 5-9 Specific gravity of urine by test strip 1.015 1.016- 1.022 Urine protein assay by test strip, semi-quantitative 3+ NEGATIVE Urine glucose detection by automated test strip NEGATIVE NEGATIVE Erythrocytes detection in urine sediment by light microscopy NEGATIVE NEGATIVE Urine ketones detection by automated test strip NEGATIVE NEGATIVE Urine nitrite detection by test strip NEGATIVE NEGATIVE Urine total bilirubin detection by test strip NEGATIVE NEGATIVE Urine urobilinogen measurement by automated test strip (mass/volume) NORMAL NORMAL Urine leukocyte esterase detection by dipstick 1+ NEGATIVE Automated urine sediment erythrocyte count by microscopy (number/high power field) NONE NRG Automated urine sediment leukocyte count by microscopy (number/high power field ) [HPF] NRG Bacteria detection in urine sediment by light microscopy MODERATE NRG Squamous epithelial cells detection in urine sediment by light microscopy 5-10 NRG Crystals detection in urine sediment by light microscopy NONE NRG Casts detection in urine sediment by light microscopy NONE NRG Mucus detection in urine sediment by light microscopy NEGATIVE NRG Complete urinalysis with reflex to culture NO NRG Serum or plasma renal function panel (Na, K, Cl, CO2, BUN, Cr, glucose,Ca, phos , alb) - 03/28/17 11:48 Serum or plasma sodium measurement (moles/volume) 141 mmol/L 135-145 Serum or plasma potassium measurement (moles/volume) 4.5 mmol/L 3.6-5.0 Serum or plasma chloride measurement (moles/volume) 105 mmol/L 98-107 Carbon dioxide 24 mmol/L 21-32 Serum or plasma anion gap determination (moles/volume) 12 mmol/L 5-14 Serum or plasma urea nitrogen measurement (mass/volume) 16 mg/dL 7-18 Serum or plasma creatinine measurement (mass/volume) 1.54 mg/dL 0.60-1.30 Serum or plasma urea nitrogen/creatinine mass ratio 10 NRG Serum or plasma creatinine measurement with calculation of estimated glomerular filtration rate 34 NRG Serum or plasma glucose measurement (mass/volume) 136 mg/dL 70-105 Serum or plasma calcium measurement (mass/volume) 9.7 mg/dL 8.5-10.1 Serum or plasma albumin measurement (mass/volume) 3.7 g/dL 3.2-4.5 Serum or plasma phosphate measurement (mass/volume) 3.2 mg/dL 2.3-4.7 Urine protein/creatinine mass ratio - 03/28/17 11:48 Urine protein measurement (mass/volume) 69 mg/dL 6-12 Urine creatinine measurement (mass/volume) 108 mg/dL 30- 125 Urine protein/creatinine mass ratio 0.64 NRG Serum or plasma intact pararthyroid hormone measurement (mass/volume) - 11:48 Serum or plasma intact parathyroid hormone measurement (mass/volume) 36.9 pg/mL 10.0-65.0 Bio-intact parathyroid hormone (PTH) measurement with calcium 9.6 % 8.5-10.5 Complete blood count (CBC) with automated white blood cell (WBC) differential - 04/21/17 10:20 Blood leukocytes automated count (number/volume) 7.8 10*3/uL 4.3-11.0 Blood erythrocytes automated count (number/volume) 3.87 10*6/uL 4.35-5.85 Venous blood hemoglobin measurement (mass/volume) 11.3 g/dL 11.5-16.0 Blood hematocrit (volume fraction) 37 % 35-52 Automated erythrocyte mean corpuscular volume 96 [foz_us] 80-99 Automated erythrocyte mean corpuscular hemoglobin (mass per erythrocyte) 29 pg 25-34 Automated erythrocyte mean corpuscular hemoglobin concentration measurement ( mass/volume) 30 g/dL 32-36 Automated erythrocyte distribution width ratio 13.4 % 10.0-14.5 Automated blood platelet count (count/volume) 192 10*3/uL 130-400 Automated blood platelet mean volume measurement 11.1 [foz_us] 7.4-10.4 Automated blood neutrophils/100 leukocytes 68 % 42-75 Automated blood lymphocytes/100 leukocytes 21 % 12-44 Blood monocytes/100 leukocytes 7 % 0-12 Automated blood eosinophils/100 leukocytes 4 % 0-10 Automated blood basophils/100 leukocytes 0 % 0-10 Blood neutrophils automated count (number/volume) 5.3 10*3 1.8-7.8 Blood lymphocytes automated count (number/volume) 1.6 10*3 1.0-4.0 Blood monocytes automated count (number/volume) 0.5 10*3 0.0-1.0 Automated eosinophil count 0.3 10*3/uL 0.0-0.3 Automated blood basophil count (count/volume) 0.0 10*3/uL 0.0-0.1 Serum or plasma renal function panel (Na, K, Cl, CO2, BUN, Cr, glucose,Ca, phos , alb) - 04/21/17 10:20 Serum or plasma sodium measurement (moles/volume) 142 mmol/L 135-145 Serum or plasma potassium measurement (moles/volume) 4.0 mmol/L 3.6-5.0 Serum or plasma chloride measurement (moles/volume) 104 mmol/L 98-107 Carbon dioxide 29 mmol/L 21-32 Serum or plasma anion gap determination (moles/volume) 9 mmol/L 5-14 Serum or plasma urea nitrogen measurement (mass/volume) 37 mg/dL 7-18 Serum or plasma creatinine measurement (mass/volume) 1.77 mg/dL 0.60-1.30 Serum or plasma urea nitrogen/creatinine mass ratio 21 NRG Serum or plasma creatinine measurement with calculation of estimated glomerular filtration rate 29 NRG Serum or plasma glucose measurement (mass/volume) 180 mg/dL 70-105 Serum or plasma calcium measurement (mass/volume) 9.1 mg/dL 8.5-10.1 Serum or plasma albumin measurement (mass/volume) 3.6 g/dL 3.2-4.5 Serum or plasma phosphate measurement (mass/volume) 2.4 mg/dL 2.3-4.7 Serum or plasma uric acid measurement (mass/volume) - 04/21/17 10:20 Serum or plasma uric acid measurement (mass/volume) 7.9 mg/dL 2.6-7.2 Magnesium - 04/21/17 10:20 Magnesium 2.0 mg/dL 1.8-2.4 Serum or plasma folate measurement (mass/volume) - 04/21/17 10:20 Serum or plasma folate measurement (mass/volume) > % 1.5- 24.0 Serum iron and total iron binding capacity panel - 04/21/17 10:20 Serum or plasma iron measurement (mass/volume) 55 % 35- 180 Total iron binding capacity and transferrin saturation measurement 16 % 15-50 Iron binding capacity [mass/volume] in serum or plasma 354 % 280-380 UIBC (unsaturated iron binding capacity) 299 % 55-450 Serum or plasma ferritin measurement (mass/volume) 75.0 % 15.0-150.0 Serum or plasma intact pararthyroid hormone measurement (mass/volume) - 10:20 Serum or plasma intact parathyroid hormone measurement (mass/volume) 87.0 pg/mL 10.0-65.0 Bio-intact parathyroid hormone (PTH) measurement with calcium 8.9 % 8.5-10.5 Cyanocobalamin measurement - 04/21/17 10:20 Vitamin B12 531 pg/mL 200-1000 25-hydroxyvitamin D measurement - 04/21/17 10:20 25-hydroxy vitamin D measurement 60 % 30-100 Complete urinalysis with reflex to culture - 04/21/17 10:26 Urine color determination YELLOW NRG Urine clarity determination CLEAR NRG Urine pH measurement by test strip 6 5-9 Specific gravity of urine by test strip 1.010 1.016- 1.022 Urine protein assay by test strip, semi-quantitative 1+ NEGATIVE Urine glucose detection by automated test strip NEGATIVE NEGATIVE Erythrocytes detection in urine sediment by light microscopy NEGATIVE NEGATIVE Urine ketones detection by automated test strip NEGATIVE NEGATIVE Urine nitrite detection by test strip NEGATIVE NEGATIVE Urine total bilirubin detection by test strip NEGATIVE NEGATIVE Urine urobilinogen measurement by automated test strip (mass/volume) NORMAL NORMAL Urine leukocyte esterase detection by dipstick 2+ NEGATIVE Automated urine sediment erythrocyte count by microscopy (number/high power field) NONE NRG Automated urine sediment leukocyte count by microscopy (number/high power field ) [HPF] NRG Bacteria detection in urine sediment by light microscopy FEW NRG Squamous epithelial cells detection in urine sediment by light microscopy 10-25 NRG Crystals detection in urine sediment by light microscopy NONE NRG Casts detection in urine sediment by light microscopy NONE NRG Mucus detection in urine sediment by light microscopy NEGATIVE NRG Complete urinalysis with reflex to culture YES NRG Urine protein/creatinine mass ratio - 04/21/17 10:26 Urine protein measurement (mass/volume) 19 mg/dL 6-12 Urine creatinine measurement (mass/volume) 57 mg/dL 30- 125 Urine protein/creatinine mass ratio 0.33 NRG Bacterial urine culture - 04/21/17 10:26 Bacterial urine culture [id number] NRG COLONY COUNT >100,000/ML NRG FTX;REPORTABLE SENSITIVITY REPORTED AT 1607, 04-22-17 NRG URINE CULTURE RESULTS PLUS NRG Bacterial susceptibility panel - 04/21/17 10:26 Gentamicin susceptibility test by minimum inhibitory concentration < = NRG Trimethoprim/sulfamethoxazole susceptibility test by minimum inhibitoryconcentration <= NRG Ampicillin susceptibility test by minimum inhibitory concentration R NRG Tobramycin susceptibility test by minimum inhibitory concentration < = NRG Cefazolin susceptibility test by minimum inhibitory concentration < = NRG Ceftriaxone susceptibility test by minimum inhibitory concentration <= NRG Ampicillin/sulbactam susceptibility test by minimum inhibitory concentration <= NRG Piperacillin/tazobactam susceptibility test by minimum inhibitory concentration <= NRG Ciprofloxacin susceptibility test by minimum inhibitory concentration <= NRG Meropenem susceptibility test by minimum inhibitory concentration < = NRG Nitrofurantoin susceptibility test by minimum inhibitory concentration <= NRG Aztreonam susceptibility test by minimum inhibitory concentration < = NRG Extended spectrum beta lactamase (ESBL) producing bacteria susceptibility test by minimum inhibitory concentration - NRG Bacterial urine culture - 08/21/17 12:00 URINE CULTURE RESULTS MORE THAN 3 ISOLATES NRG Encounters ACCT No. Visit Date/Time Discharge Status Pt. Type Provider Facility Loc./Unit Complaint [id number] 08/16/2014 12:59:00 08/16/2014 23:59:59 CLS Outpatient KATLYN SAXENA APRN [id number] 08/13/2014 08:41:00 08/13/2014 23:59:59 CLS Outpatient ROSSY DE LA TORRE MD [id number] 07/18/2014 09:33:00 07/18/2014 23:59:59 CLS Outpatient SHAYNA REAL DO [id number] 05/24/2014 10:06:00 05/24/2014 23:59:59 CLS Outpatient SHAYNA REAL DO [id number] 05/24/2014 10:06:00 05/24/2014 23:59:59 CLS Outpatient KATLYN SAXENA APRN [id number] 03/21/2014 14:22:00 03/21/2014 23:59:59 CLS Outpatient KATLYN SAXENA APRN [id number] 01/22/2014 10:21:00 01/22/2014 23:59:59 CLS Outpatient REAL DOSHAYNA [id number] 01/22/2014 10:21:00 01/22/2014 23:59:59 CLS Outpatient KATLYN SAXENA APRN [id number] 10/03/2013 10:51:00 10/03/2013 23:59:59 CLS Outpatient JETHRO SHETH MD [id number] 10/03/2013 10:51:00 10/03/2013 23:59:59 CLS Outpatient JETHRO SHETH MD [id number] 09/13/2013 09:59:00 09/13/2013 23:59:59 CLS Outpatient REAL DOSHAYNA [id number] 08/21/2013 09:18:00 08/21/2013 23:59:59 CLS Outpatient REAL DOSHAYNA Dayne [id number] 08/16/2013 10:41:00 08/16/2013 23:59:59 CLS Outpatient REAL DOSHAYNA [id number] 07/18/2013 08:15:00 07/18/2013 23:59:59 CLS Outpatient JAY MENDEZ MD [id number] 06/14/2013 14:14:00 06/14/2013 23:59:59 CLS Outpatient REAL DOSHAYNA Dayne [id number] 05/25/2013 12:36:00 05/25/2013 23:59:59 CLS Outpatient JAY MENDEZ MD [id number] 05/15/2013 15:37:00 05/15/2013 23:59:59 CLS Outpatient REAL DOSHAYNA Dayne [id number] 05/08/2013 15:52:00 05/08/2013 23:59:59 CLS Outpatient REAL DOJAMELChevy Oscar [id number] 05/03/2013 14:09:00 05/03/2013 23:59:59 CLS Outpatient REAL DO, SHAYNA Dayne [id number] 04/27/2013 12:47:00 04/27/2013 23:59:59 CLS Outpatient REAL DO, SHAYNA Dayne [id number] 04/26/2013 10:42:00 04/26/2013 23:59:59 CLS Outpatient REAL DOJAMELA Dayne [id number] 04/19/2013 09:09:00 04/19/2013 23:59:59 CLS Outpatient REAL DOJAMELA Dayne [id number] 04/11/2013 00:00:00 04/11/2013 23:59:59 CLS Outpatient REAL DO, SHAYNA Dayne [id number] 2013 15:25:00 2013 23:59:59 CLS Outpatient SHAYNA REAL DO [id number] 03/20/2013 09:23:00 03/20/2013 23:59:59 CLS Outpatient SHAYNA REAL DO [id number] 03/20/2013 09:23:00 03/20/2013 23:59:59 CLS Outpatient SHAYNA REAL DO [id number] 08/02/2012 09:58:00 08/02/2012 23:59:59 CLS Outpatient AIMEE CONKLIN MD [id number] 07/19/2012 09:02:00 07/19/2012 23:59:59 CLS Outpatient [id number] 04/22/2012 14:11:00 04/22/2012 23:59:59 CLS Outpatient AIMEE CONKLIN MD [id number] 04/22/2012 14:11:00 04/22/2012 23:59:59 CLS Outpatient AIMEE CONKLIN MD [id number] 03/01/2013 13:43:00 Document Registration [id number] 02/24/2013 09:53:00 Document Registration [id number] 02/20/2013 10:56:00 Document Registration [id number] 02/10/2013 09:46:00 Document Registration [id number] 01/03/2013 09:22:00 Document Registration [id number] 12/06/2012 15:06:00 Document Registration [id number] 11/10/2012 09:50:00 Document Registration [id number] 09/11/2016 07:06:00 Document Registration [id number] 05/12/2017 11:00:00 05/12/2017 23:59:59 CLS Outpatient [facility] [id number] 06/11/2016 10:06:00 Document Registration [id number] 09/29/2017 07:18:00 09/29/2017 23:59:59 CLS Outpatient RANDY NORMAN [facility] [address] CARD COPD J44.9 [id number] 09/22/2017 11:46:00 09/22/2017 23:59:59 CLS Outpatient RANDY NORMAN [facility] [address] CARD J44.9 COPD [id number] 08/21/2017 11:29:00 08/21/2017 23:59:59 CLS Outpatient JAZMIN CAMPOS MD [facility] [address] LAB HYPERTENSION,CHRONIC KIDNEY DISEASE,DIABETES MELLI [id number] 04/21/2017 10:00:00 04/21/2017 23:59:59 CLS Outpatient JAZMIN CAMPOS MD [facility] [address] LAB I10,N18.3,E11.9,R60.9 [id number] 03/28/2017 11:11:00 03/28/2017 23:59:59 CLS Outpatient OLESYA HINES, CLAUDIA Reeec [facility] [address] LAB HTN,CKD STG 4,EDEMA, METABOLIC BONE DISEASE [id number] 01/14/2017 12:28:00 01/14/2017 23:59:59 CLS Outpatient JAZMIN CAMPOS MD [facility] [address] LAB I10,N18.4,R60.9,E88.9 [id number] 12/10/2016 09:18:00 12/10/2016 23:59:59 CLS Outpatient JAZMIN CAMPOS MD [facility] [address] LAB I10,N18.4,R60.9,E88.9 [id number] 10/17/2016 08:37:00 10/17/2016 23:59:59 CLS Outpatient JAZMIN CAMPOS MD [facility] [address] LAB CHRONIC KIDNEY DISEASE [id number] 07/16/2016 10:52:00 07/16/2016 23:59:59 CLS Outpatient CHELSY VILLAFANA [facility] [address] RAD SCREENING FOR BREAST CA [id number] 06/18/2016 11:40:00 06/18/2016 23:59:59 CLS Outpatient RANDY NORMAN [facility] [address] LAB CAROTID ARTERY STENOSIS,HTN [id number] 06/18/2016 11:36:00 06/18/2016 23:59:59 CLS Outpatient HELIO CAICEDO MD [facility] [address] RAD CKD STAGE 4 [id number] 05/19/2016 08:50:00 05/19/2016 23:59:59 CLS Outpatient RANDY NORMAN [facility] [address] LAB HTN, HYPERLIPIDEMIA [id number] 05/13/2016 13:28:00 05/13/2016 23:59:59 CLS Outpatient HELIO CAICEDO MD [facility] [address] LAB CHRONIC KIDNEY DIS STAGE 4,HTN,ANEMIA,EDEMA [id number] 11/22/2015 13:54:00 11/22/2015 23:59:59 CLS Outpatient RODY GARCIA APRN [facility] [address] SDC ANEMIA [id number] 11/21/2015 11:38:00 11/21/2015 23:59:59 CLS Outpatient ROYD GARCIA 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 [facility] [address] [facility] DVT,SOB,AUBREE, HYPOXEMIA,RESTRICTIVE LUNG DISEASE [id number] 11/15/2015 10:01:00 11/15/2015 23:59:59 CLS Outpatient RANDY NORMAN Via [facility] [address] LAB HTN, HYPERLIPIDEMIA,CAROTID ARTERY STENOSIS [id number] 11/14/2015 13:54:00 11/14/2015 23:59:59 CLS Outpatient RODY GARCIA APRN Via [facility] [address] LAB DVT [id number] 11/14/2015 13:49:00 11/14/2015 23:59:59 CLS Outpatient RANDY NORMAN Via [facility] [address] LAB HTN,CAROTID ARTERY STENOSIS,HYPERLIPIDEMIA [id number] 05/15/2015 11:32:00 05/16/2015 11:10:00 DIS Outpatient LUCILA GRACE MD Via [facility] [address] CATH CLAUDICATION,PVD,IDDM, HTN,HLP [id number] 05/13/2015 10:21:00 05/13/2015 23:59:59 CLS Outpatient LUCILA GRACE MD Via [facility] [address] RAD HTN CLAUDICATION CAROTID ARTERY STENOSIS [id number] 05/03/2015 09:37:00 05/03/2015 23:59:59 CLS Outpatient RANDY NORMAN Via [facility] [address] LAB HTN, CAROTID ARTERY STENOSIS [id number] 01/17/2015 21:19:00 01/21/2015 14:00:00 DIS Inpatient DOMENIC HINES, JETHRO Ulloa Via [facility] [address] SURGICAL ANASARCA,DYSPNEA, FLUID OVERLOAD, ANEMIA [id number] 11/27/2014 11:31:00 11/27/2014 23:59:59 CLS Outpatient RODY GARCIA APRN Via [facility] [address] RAD SOB,PE [id number] 08/09/2014 15:00:00 08/09/2014 23:59:59 CLS Preadmit CORNELIUS SMALLWOOD DO Via [facility] [address] PULM ASTHMA AUBREE [id number] 05/10/2014 14:43:00 08/08/2014 00:01:00 DIS Outpatient CORNELIUS SMALLWOOD DO Via [facility] [address] PULM ASTHMA AUBREE [id number] 07/23/2014 14:32:00 07/25/2014 14:54:00 DIS Inpatient BRITT HINES, ROSSY Carl [facility] [address] 4TH SMALL BOWEL OBSTRUCTION [id number] 05/04/2014 14:14:00 05/04/2014 23:59:59 CLS Outpatient CORNELIUS SMALLWOOD DO Via [facility] [address] RT ASTHMA AUBREE [id number] 01/10/2014 06:49:00 01/10/2014 13:15:00 DIS Outpatient LUCILA GRACE MD Via [facility] [address] CATH DYSPNEA,SOB,HLP HTN, IDDM [id number] 12/04/2013 13:23:00 12/26/2013 12:17:00 DIS Outpatient YEE LAFLEUR MD [facility] [address] REHAB S/P R TKR [id number] 12/11/2013 18:03:00 12/15/2013 10:15:00 DIS Inpatient CORNELIUS SMALLWOOD DO Via [facility] [address] 4TH DVT [id number] 12/11/2013 12:57:00 12/11/2013 23:59:59 CLS Outpatient CORNELIUS SMALLWOOD DO Via [facility] [address] CARD RT CALF PAIN,HX DVT, RESP INSUFF,ASTHMA [id number] 12/04/2013 07:08:00 12/04/2013 23:59:59 CLS Outpatient LUCILA GRACE MD [facility] [address] CARD SOB,HTN,HLP,COPD [id number] 11/01/2013 12:56:00 11/09/2013 09:23:00 DIS Outpatient YEE LAFLEUR MD [facility] [address] REHAB S/P R TKR [id number] 10/23/2013 15:20:00 10/23/2013 23:59:59 CLS Outpatient JETHRO SHETH MD [facility] [address] RT UNEXPLAINED HYPOXIA [id number] 08/10/2013 20:03:00 08/11/2013 08:15:00 DIS Outpatient VELVET LUCERO [facility] [address] SLEEP AUBREE,CHOKING [id number] 07/26/2013 10:30:00 08/03/2013 18:30:00 DIS Inpatient BESS COREAS MD [facility] [address] IRF SEVERE OSTEOARTHRISTIS RIGHT KNEE [id number] 07/19/2013 08:12:00 07/26/2013 10:30:00 DIS Inpatient YEE LAFLEUR MD [facility] [address] SURGICAL SEVERE OSTEOARTHRISTIS RIGHT KNEE [id number] 07/12/2013 09:51:00 07/12/2013 23:59:59 CLS Outpatient YEE LAFLEUR MD [facility] [address] PREOP SEVERE OSTEOARTHRITIS RIGHT KNEE [id number] 06/05/2013 08:15:00 06/05/2013 11:05:00 DIS Outpatient JAY MENDEZ MD [facility] [address] SDC CONSTIPATION [id number] 05/24/2013 07:35:00 05/24/2013 23:59:59 CLS Outpatient JAY MENDEZ MD [facility] [address] PREOP CONSTIPATION [id number] 05/09/2013 09:35:00 05/09/2013 23:59:59 CLS Outpatient KATLYN SAXENA APRN [facility] [address] RAD CONSTIPATON [id number] 04/26/2013 13:20:00 04/26/2013 23:59:59 CLS Outpatient KATLYN SAXENA APRN [facility] [address] RAD LEFT ARM SWELLING, REDNESS [id number] 04/21/2013 11:54:00 04/24/2013 12:24:00 DIS Inpatient ADDIE NOONAN, SHAYNA K [facility] [address] 4TH N/V [id number] 02/02/2013 16:08:00 02/03/2013 13:18:00 DIS Inpatient JETHRO SHETH MD Via [address] ACUTE RENAL FAILURE [id number] 01/19/2013 10:23:00 01/19/2013 23:59:59 CLS Outpatient AIMEE CONKLIN MD [facility] [address] RAD LBP,HX OF BULLET FRAGMENT IN BACK OR HIP [id number] 11/24/2012 12:08:00 11/24/2012 23:59:59 CLS Outpatient AIMEE CONKLIN MD [facility] [address] RAD 6 MONTH F/U [id number] 05/15/2015 11:32:00 Document Registration [id number] 07/24/2014 14:08:00 Document Registration [id number] 05/16/2014 09:57:00 Document Registration [id number] 05/19/2012 10:58:00 Document Registration [id number] 05/12/2012 14:32:00 Document Registration [id number] 01/17/2015 15:38:40 ACT Document Registration
[2017-10-06 07:51] LABS: HEMOGLOBIN 9.6 G/DL (11.5-16.0); MEAN PLATELET VOLUME 11.1 FL (7.4-10.4); RED BLOOD COUNT 3.28 10^6/uL (4.35-5.85); RED CELL DISTRIBUTION WIDTH 13.7 % (10.0-14.5); WHITE BLOOD COUNT 9.9 10^3/uL (4.3-11.0)
[2017-10-06 08:03] LABS: INR 1.1 (0.8-1.4); PROTHROMBIN TIME PATIENT 13.8 SEC (12.2-14.7)
[2017-10-06 08:10] LABS: ALBUMIN 3.6 GM/DL (3.2-4.5); BILIRUBIN,TOTAL 0.3 MG/DL (0.1-1.0); CALCIUM 9.5 MG/DL (8.5-10.1); CREATININE SERUM 1.91 MG/DL (0.60-1.30); POTASSIUM 4.4 MMOL/L (3.6-5.0); TOTAL PROTEIN 6.7 GM/DL (6.4-8.2)
--- NOTE | 2017-10-06 08:12 | Diagnostic Imaging Report ---
INDICATION: Coronary artery disease, chest pain and dyspnea. Portable upright AP view of the chest is obtained. Comparison is made study of 05/15/2015. FINDINGS: There is bair-od-ccvegazy generalized cardiomegaly. Pulmonary vascularity is within normal limits. No pneumothorax or consolidation is identified. IMPRESSION: Persistent cardiomegaly without other acute abnormality detected. Dictated by: Dictated on workstation # [id number]
--- NOTE | 2017-10-06 08:17 | Cardiac Procedure Note-CS/ASA ---
Pre-Procedure Note Pre-Op Procedure Note H&P Reviewed The H&P was reviewed, patient examined and no changes noted. Date H&P Reviewed: Oct 06, 2017 Time H&P Reviewed: 08:16 Conscious Sedation Pre-Proced Time Reviewed: 08:16 ASA Class: 3 Airway Mallampati Classification: ([place] appropriate class) I. II. III, IV Lungs Heart ASA score ASA 1: a normal healthy patient ASA 2: a patient with a mild systemic disease (mid diabetes, controlled hypertension, obesity x ASA 3: a patient with a severe systemic disease that limits activity (angina , COPD, prior Myocardial infarction) ASA 4: a patient with an incapacitating disease that is a constant threat to life (CHF, renal failure) ASA 5: a moribund patient not expected to survive 24 hrs. (ruptured aneurysm) ASA 6: a declared brain patient whose organs are being harvested. For emergent operations, add the letter E after the classification Grade 3 Sedation Plan: Analgesia, Amnesia, Plan communicated to team members, Discussed options with patient/fam, Discussed risks with patient/fam Note The patient is an appropriate candidate to undergo the planned procedure, sedation, and anesthesia. The patient immediately re-assessed prior to indication. LUCILA ESCOBEDO MD Oct 06, 2017 08:17
[2017-10-06] MEDS ORDERED: LOSA100T28 PO (09:21)
[2017-10-06] MEDS ORDERED: ATOR40TA70 PO (09:22)
[2017-10-06] MEDS ORDERED: APIX5TAB PO (09:23)
[2017-10-06] MEDS ORDERED: TORS20TA3 PO (09:23)
[2017-10-06] MEDS ORDERED: INSU100I32 SQ (09:24)
[2017-10-06] MEDS ORDERED: INSU100V16 SQ (09:25)
[2017-10-06] MEDS ORDERED: TRAM50TA2 PO (09:26)
[2017-10-06] MEDS ORDERED: DIPH25TA29 PO (09:30)
[2017-10-06] MEDS ORDERED: SOY155CA PO (09:31)
[2017-10-06] MEDS ORDERED: ASPI-586 PO (09:31)
[2017-10-06] MEDS ORDERED: OMG1KC PO ×2 (09:32→09:33)
[2017-10-06] MEDS ORDERED: VENL150C98 PO (09:33)
[2017-10-06] MEDS ORDERED: FLUT1DIS28 INH (09:35)
[2017-10-06] MEDS ORDERED: ALLO100T PO (09:35)
[2017-10-06] MEDS ORDERED: MILN100T PO (09:36)
[2017-10-06] MEDS ORDERED: MELA10TA2 PO (09:37)
[2017-10-06] MEDS ORDERED: GABA600T2 PO (09:38)
[2017-10-06] MEDS ORDERED: ASCO250T5 PO (09:41)
[2017-10-06] MEDS ORDERED: SUCR1TAB PO (09:42)
[2017-10-06] MEDS ORDERED: MIDAZOLAM 5 MG/5 ML (VERSED) VIAL ONE (10:07)
[2017-10-06] MEDS ORDERED: LIDOCAINE 1% INJ 50 ML (XYLOCAINE) VIAL ONE (10:07)
[2017-10-06] MEDS ORDERED: fentaNYL INJECTION 100 MCG/2 ML AMP ONE (10:07)
[2017-10-06] MEDS ORDERED: VERAPAMIL 5 MG/2 ML (CALAN) VIAL IV ONE (10:13)
[2017-10-06] MEDS ORDERED: HEParin 1000 UNIT/ML (10ML VIAL) FOR BOLUS ONE (10:13)
[2017-10-06] MEDS ORDERED: NITRO DRIP 25000 MCG/D5W 250 ML IV ONE (10:13)
--- NOTE | 2017-10-06 11:14 | Discharge Inst-Post CATH ---
Discharge Inst-CATH Post Cardiac Cath D/C Inst Follow Up/Plan Appointment with Dr. Grace's office in 2-4 weeks CARDIAC CATH DISCHARGE INSTRUCTIONS *Hold Metformin for 48 hours post heart cath. ACTIVITY * Go Home directly and rest. * Limit activity of the leg (or wrist if it was used) for 7 days including aerobics, swimming, jogging, bicycling, etc. * Restrict stair-climbing for 7 days if possible, if not, climb up with your non -cath leg, then bring together on the same step. * Avoid lifting, pushing, pulling or excessive movement of the affected extremity for 7 days. * Customary sexual activity may be resumed after 2 days-use caution not to use a position that strains or causes pain to the affected extremity. * No driving for 24 hours. * NO SMOKING. * Avoid straining for bowel movements for 7 days. * Gentle walking on level ground is allowed. * Returning to work will depend on the type of procedure and the results. Your doctor will discuss this with you. CALL YOUR DOCTOR FOR ANY OF THE FOLLOWING: *If bleeding from the puncture site occurs- Apply gentle pressure to site with clean cloth and call your doctor or EMS. * If a knot or lump forms under the skin, increases in size, or causes pain. * If bruising appears to be worsening or moving further down your leg instead of disappearing. * Temperature above 101 F. CARE OF YOUR GROIN INCISION; * Bruising or purple discoloration of the skin near the puncture site is common. * You may shower only, no bathtub bathing for 5 days. Be careful to avoid slipping as your leg may feel stiff. * If a closure device was used on your femoral artery, please see the attached guide regarding care of the device and your leg. * REMOVE the dressing from your groin the next day after your procedure in the shower. CARE OF YOUR WRIST INCISION; * Bruising or purple discoloration of the skin near the puncture site is common. * You may shower. * DO NOT submerge wrist. * Remove dressing in 24 hours. LUCILA GRACE MD Oct 06, 2017 11:14
--- NOTE | 2017-10-06 11:18 | Cardiac Cath Report ---
Cardiac Cath Report Physician (s)/Compressor Station Operator (s) Physician LUCILA ESCOBEDO MD Pre-Procedure Diagnosis Pre-Procedure Diagnosis: Chest pain, abnormal stress test Post-Procedure Note Procedure Start Date: Oct 06, 2017 Name of Procedure: Left heart catheterization Findings/Procedure Note PROCEDURE NOTE: After explaining the procedure to the patient, all pros and cons were explained , all questions were answered. The patient signed the consent and then she was placed on the cardiac catheterization laboratory. Groin was prepped SL fashion local anesthesia was used. Sheath placed in the right radial artery. [place] and Brown catheter were used to ask the left ventricular cavity and the coronaries, no left ventricular gram was done, pressure was measured At the end of the procedure the sheath was removed. Closure device FINDINGS: Hemodynamics LV 114/25, end-diastolic pressure of 25 Aorta 114/64 mean of 80, no significant gradient ANATOMY: Left Main is free of obstructive disease Left Anterior Descending has mild disease at the midportion no obstructive disease Left Circumflex is free of obstructive disease Right Coronory Artery is dominant with mild disease nonobstructive disease LV Gram was not done, pressure was measured Aorta CONCLUSION: 1. Mild coronary artery disease obstructive disease 2. Mildly elevated left ventricular end-diastolic pressure DISCUSSION AND RECOMMENDATION: Medical therapy is recommended no intervention is needed Anesthesia Type: Conscious Sedation Estimated blood loss (mL): 5 ml Contrast Amount: 43 ml Total Radiation Dose: 1069 mGy Post-Procedure Diagnosis Post-operative diagnosis: Chest pain nonspecific etiology Coronary artery disease Hypertension Hyperlipidemia LUCILA ESCOBEDO MD Oct 06, 2017 11:18
[2017-10-06] MEDS ORDERED: meTOprolol 5 MG/5 ML (LOPRESSOR) VIAL ONE (13:24)
[2017-10-06] MEDS ORDERED: meTOprolol 5 MG/5 ML (LOPRESSOR) VIAL IV ONE (13:30)
== END 2017-10-06 14:30 | disposition home or self-care (01) ==
LOC: CATH 06:56 → SURG 12:06 → CATH 14:30
PROVIDERS: ATTEND Internal Medicine Cardiovascular Disease
DX: I25.10 Atherosclerotic heart disease of native coronary artery without angina pectoris (principal); Z86.718 Personal history of other venous thrombosis and embolism; I10 Essential (primary) hypertension; E78.5 Hyperlipidemia, unspecified; J44.9 Chronic obstructive pulmonary disease, unspecified; I65.23 Occlusion and stenosis of bilateral carotid arteries; Z11.2 Encounter for screening for other bacterial diseases
CPT/HCPCS: 36415; 71045; 80053; 80061; 85027; 85610; 85730; 87081; 93458

== ENCOUNTER 2017-12-22 17:50 | Emergency (ER) | payer MEDICARE, MEDICAID ==
[~2017-12-22] VITALS: Ht 162.6 cm; Wt 158.8 kg
[~2017-12-22 17:50] MED LIST changes: +ALLO100T PO; +APIX5TAB PO; +ASCO250T5 PO; +ASPI-586 PO; +ATOR40TA70 PO; +DIPH25TA29 PO; +FLUT1DIS28 INH; +INSU100I32 SQ; +INSU100V16 SQ; +LOSA100T28 PO; +MELA10TA2 PO; +OMG1KC PO; +SOY155CA PO; +SUCR1TAB PO; +VENL150C98 PO
[2017-12-22] MEDS ORDERED: NS IV 1000 ML 1,000 ML IV ONE ×2 (18:07→18:47)
[2017-12-22 18:14] LABS: BASOPHILS % (AUTO) 0 % (0-10); EOSINOPHILS % (AUTO) 0 % (0-10); HEMATOCRIT 21 % (35-52); LYMPHOCYTES # (AUTO) 1.2 X 10^3 (1.0-4.0); LYMPHOCYTES % (AUTO) 7 % (12-44); MEAN CORPUSCULAR HEMOGLOBIN 26 PG (25-34); MEAN CORPUSCULAR HGB CONC 29 G/DL (32-36); MEAN CORPUSCULAR VOLUME 91 FL (80-99); MEAN PLATELET VOLUME 12.7 FL (7.4-10.4); MONOCYTES # (AUTO) 1.2 X 10^3 (0.0-1.0); MONOCYTES % (AUTO) 7 % (0-12); NEUTROPHILS % (AUTO) 86 % (42-75); PLATELET COUNT 239 10^3/uL (130-400); RED BLOOD COUNT 2.33 10^6/uL (4.35-5.85); RED CELL DISTRIBUTION WIDTH 14.3 % (10.0-14.5); WHITE BLOOD COUNT 16.3 10^3/uL (4.3-11.0)
[2017-12-22 18:21] LABS: HEMOGLOBIN 6.1 G/DL (11.5-16.0)
[2017-12-22 18:24] LABS: INR 1.7 (0.8-1.4); PROTHROMBIN TIME PATIENT 20.4 SEC (12.2-14.7)
--- NOTE | 2017-12-22 18:28 | ED General ---
General Stated Complaint: SICK 4 DAYS,AMS Source of Information: Patient, Family (DAUGHTERS), Spouse Exam Limitations: Other (PT IS SOMEWHAT LIMITED HISTORIAN--FAMILY TRIES TO DO ALL TALKING FOR PT) History of Present Illness Date Seen by Provider: Dec 22, 2017 Time Seen by Provider: 18:00 Initial Comments PT ARRIVES VIA EMS FROM HOME FAMILY CALLED EMS FOR ALTERED MENTAL STATUS FAMILY REPORTS THAT PT WOKE UP AT 0100 THIS AM. PCP: CARRIE Allergies and Home Medications Allergies Coded Allergies: Sulfa (Sulfonamide Antibiotics) (Verified Allergy, Unknown, 12/11/13) insulin aspart (Unverified Adverse Reaction, Mild, NAUSEA, 07/24/14) Patient has been administered Humalog on multiple occasions without it causing Nausea, pt. is able to take while inpatient Uncoded Allergies: plastic like plastic tape (Allergy, Intermediate, rash, 02/02/13) PCN (Allergy, Unknown, 12/11/13) Home Medications Albuterol 8.5 Gm Hfa.aer.ad, 2 PUFF IH Q4H PRN for SHORTNESS OF BREATH, ( Reported) Allopurinol 100 Mg Tablet, 100 MG PO DAILY, (Reported) Apixaban 5 Mg Tablet, 5 MG PO BID, (Reported) Ascorbic Acid 250 Mg Tab.chew, 500 MG PO HS, (Reported) Aspirin 81 Mg Tablet.dr, 81 MG PO DAILY, (Reported) Atorvastatin Calcium 40 Mg Tablet, 40 MG PO DAILY, (Reported) Biotin 1,000 Mcg Tablet, 1,000 MCG PO DAILY, (Reported) Diphenhydramine HCl 25 Mg Tablet, 25 MG PO PRN PRN for allergies, (Reported) Fexofenadine HCl 60 Mg Tablet, 60 MG PO DAILY PRN for ALLERGIES, (Reported) Fluticasone/Salmeterol 1 Each Blst.w.dev, 2 PUFF INH DAILY, (Reported) Gabapentin 600 Mg Tablet, 600 MG PO TID, (Reported) Insulin Aspart 100 Unit/1 Ml Susp, 50 UNIT SQ AC, (Reported) Insulin Degludec 100 Unit/1 Ml Insuln.pen, 104 UNIT SQ DAILY, (Reported) Liraglutide 0.6 Mg/0.1 Ml Pen.injctr, 1.8 MG SQ DAILY, (Reported) Losartan Potassium 100 Mg Tablet, 100 MG PO DAILY, (Reported) Melatonin 10 Mg Tablet, 20 MG PO HS, (Reported) Milnacipran HCl 100 Mg Tablet, 100 MG PO BID, (Reported) Multivitamin 1 Each Tablet, 1 TAB PO HS, (Reported) Brady 3 Polyunsat Fatty Acids 1,000 Mg Cap, 1,000 MG PO DAILY, (Reported) Brady 3 Polyunsat Fatty Acids 1,000 Mg Cap, 2,000 MG PO HS, (Reported) Pantoprazole Sodium 40 Mg Tablet.dr, 40 MG PO DAILY, (Reported) Quetiapine Fumarate 50 Mg Tablet, 50 MG PO HS, (Reported) Soy Isofla/Blk Cohosh/Mag Bark 155 Mg Capsule, 155 MG PO DAILY, (Reported) Sucralfate 1 Gm Tablet, 1 GM PO BID, (Reported) Torsemide 20 Mg Tablet, 20 MG PO DAILY, (Reported) Tramadol HCl 50 Mg Tablet, 50 MG PO Q8H PRN for PAIN-MILD, (Reported) Trazodone Hcl 150 Mg Tablet, 150 MG PO HS, (Reported) Venlafaxine HCl 150 Mg Cap.er.24h, 150 MG PO DAILY, (Reported) Verapamil HCl 240 Mg Tablet.er, 240 MG PO DAILY, (Reported) Past Bcdzjvb-Olpipc-Skajxe Hx Immunizations Up To Date Tetanus Booster (TDap): Unknown Date of Pneumonia Vaccine: Apr 04, 2005 Date of Influenza Vaccine: Apr 04, 2015 Past Medical History Abdominal, Appendectomy, Bowel Surgery, Gallbladder, Hysterectomy, Joint Replacement, Orthopedic Asthma, Sleep Apnea, COPD High Cholesterol, Hypertension Neuropathy Reproductive Disorders: No [employer] History: Hysterectomy Renal Failure, Dialysis, UTI-Chronic Pancreatitis, Chronic Diarrhea, Hiatal Hernia, Gall Bladder Disease Arthritis, Back Injury Diabetes, Insulin dep Loss of Vision: Denies Hearing Impairment: Denies Sleep Difficulties, Anxiety, Depression Psoriasis Adverse Reaction/Blood Tranf: No Family Medical History Cataract 03 MOTHER Family history: Arthritis 03 MOTHER Family history: Asthma 09 BROTHER Family history: Diabetes mellitus 09 BROTHER Headache 09 SISTER History of - respiratory disease 09 BROTHER No Family History of: Abdominal aortic aneurysm Cancer Cystic fibrosis Family history: Alzheimer's disease Family history: Breast disease Family history: Cardiovascular disease Family history: Gastrointestinal disease Family history: Hypertension Family history: Thyroid disorder Kidney disease Myocardial infarction Psychotic disorder No Pertinent Family Hx Physical Exam Vital Signs Vital Signs - First Documented 12/22/17 20:58 FiO2 40 Capillary Refill : Focused Exam Lactate Level 12/22/17 18:00: Lactic Acid Level 1.71 Lactic Acid Level Laboratory Tests Test 12/22/17 18:00 Lactic Acid Level 1.71 MMOL/L (0.50-2.00) Progress/Results/Core Measures Suspected Sepsis SIRS Temperature: Pulse: Respiratory Rate: Laboratory Tests 12/22/17 18:00: White Blood Count 16.3H Blood Pressure / Mean: 12/22/17 18:00: Lactic Acid Level 1.71 Laboratory Tests 12/22/17 18:00: Creatinine 4.02H, INR Comment 1.7H, Platelet Count 239, Total Bilirubin 0.5 Results/Orders Lab Results Laboratory Tests Test 12/22/17 18:00 12/22/17 18:12 12/22/17 18:45 12/22/17 18:51 Range/Units White Blood Count 16.3 H 4.3-11.0 10^3/uL Red Blood Count 2.33 L 4.35-5.85 10^6/uL Hemoglobin 6.1 *L 11.5-16.0 G/DL Hematocrit 21 L 35-52 % Mean Corpuscular Volume 91 80-99 FL Mean Corpuscular Hemoglobin 26 25-34 PG Mean Corpuscular Hemoglobin Concent 29 L 32-36 G/DL Red Cell Distribution Width 14.3 10.0-14.5 % Platelet Count 239 130-400 10^3/uL Mean Platelet Volume 12.7 H 7.4-10.4 FL Neutrophils (%) (Auto) 86 H 42-75 % Lymphocytes (%) (Auto) 7 L 12-44 % Monocytes (%) (Auto) 7 0-12 % Eosinophils (%) (Auto) 0 0-10 % Basophils (%) (Auto) 0 0-10 % Neutrophils # (Auto) 14.0 H 1.8-7.8 X 10^3 Lymphocytes # (Auto) 1.2 1.0-4.0 X 10^3 Monocytes # (Auto) 1.2 H 0.0-1.0 X 10^3 Eosinophils # (Auto) 0.0 0.0-0.3 10^3/uL Basophils # (Auto) 0.0 0.0-0.1 10^3/uL Neutrophils % (Manual) 80 % Lymphocytes % (Manual) 8 % Monocytes % (Manual) 5 % Eosinophils % (Manual) 0 % Basophils % (Manual) 0 % Metamyelocytes % 2 % Band Neutrophils 5 % Hypochromasia SLIGHT Prothrombin Time 20.4 H 12.2-14.7 SEC INR Comment 1.7 H 0.8-1.4 Activated Partial Thromboplast Time 29 24-35 SEC Sodium Level 135 135-145 MMOL/L Potassium Level 6.8 *H 3.6-5.0 MMOL/L Chloride Level 98 98-107 MMOL/L Carbon Dioxide Level 23 21-32 MMOL/L Anion Gap 14 5-14 MMOL/L Blood Urea Nitrogen 52 H 7-18 MG/DL Creatinine 4.02 H 0.60-1.30 MG/DL Estimat Glomerular Filtration Rate 11 BUN/Creatinine Ratio 13 Glucose Level 448 *H 70-105 MG/DL Lactic Acid Level 1.71 0.50-2.00 MMOL/L Calcium Level 8.5 8.5-10.1 MG/DL Magnesium Level 2.1 1.8-2.4 MG/DL Total Bilirubin 0.5 0.1-1.0 MG/DL Aspartate Amino Transf (AST/SGOT) 37 H 5-34 U/L Alanine Aminotransferase (ALT/SGPT) 27 0-55 U/L Alkaline Phosphatase 131 40-136 U/L Troponin I < 0.30 <0.30 NG/ML B-Type Natriuretic Peptide 109.2 H <100.0 PG/ML Total Protein 6.6 6.4-8.2 GM/DL Albumin 3.4 3.2-4.5 GM/DL Amylase Level 59 25-125 U/L Lipase 21 8-78 U/L TSH [place] Testing 1.70 0.35-4.94 UIU/ML Serum Alcohol < 10 <10 MG/DL Glucometer 451 *H 70-110 MG/DL Blood Gas Puncture Site RT RAD Blood Gas Patient Temperature 97.2 Arterial Blood pH 7.28 *L 7.37-7.43 Arterial Blood Partial Pressure CO2 60 H 35-45 MMHG Arterial Blood Partial Pressure O2 97 H 79-93 MMHG Arterial Blood HCO3 28 H 23-27 MMOL/L Arterial Blood Total CO2 29.4 21.0-31.0 MMOL/L Arterial Blood Oxygen Saturation 97 94-100 % Arterial Blood Base Excess 1.2 -2.5-2.5 MMOL/L Iker Test YES-POS Blood Gas Ventilator Setting NO Blood Gas Inspired Oxygen 3.5L Urine Color YELLOW Urine Clarity CLEAR Urine pH 5 5-9 Urine Specific [place] 1.020 1.016-1.022 Urine Protein 2+ H NEGATIVE Urine Glucose (UA) NEGATIVE NEGATIVE Urine Ketones NEGATIVE NEGATIVE Urine Nitrite NEGATIVE NEGATIVE Urine Bilirubin 2+ H NEGATIVE Urine Urobilinogen 1 NORMAL MG/DL Urine Leukocyte Esterase 1+ H NEGATIVE Urine RBC (Auto) 1+ H NEGATIVE Urine RBC 0-2 /HPF Urine WBC RARE /HPF Urine Squamous Epithelial Cells 2-5 /HPF Urine Crystals NONE /LPF Urine Bacteria NEGATIVE /HPF Urine Casts NONE /LPF Urine Mucus NEGATIVE /LPF Urine Culture Indicated NO Urine Opiates Screen NEGATIVE NEGATIVE Urine Oxycodone Screen NEGATIVE NEGATIVE Urine Methadone Screen NEGATIVE NEGATIVE Urine Propoxyphene Screen NEGATIVE NEGATIVE Urine Barbiturates Screen NEGATIVE NEGATIVE Ur Tricyclic Antidepressants Screen POSITIVE H NEGATIVE Urine Phencyclidine Screen NEGATIVE NEGATIVE Urine Amphetamines Screen NEGATIVE NEGATIVE Urine Methamphetamines Screen NEGATIVE NEGATIVE Urine Benzodiazepines Screen NEGATIVE NEGATIVE Urine Cocaine Screen NEGATIVE NEGATIVE Urine Cannabinoids Screen NEGATIVE NEGATIVE My Orders Orders - NENA VARGASA K DO Saline Lock/Iv-Start (12/22/17 18:02) Ekg Tracing (12/22/17 18:02) O2 (12/22/17 18:02) Monitor-Rhythm Ecg Trace Only (12/22/17 18:02) Ct Head Wo-R/O Stroke (12/22/17 18:02) Alcohol (12/22/17 18:02) Arterial Blood Gas (12/22/17 18:02) Cbc With Automated Diff (12/22/17 18:02) Comprehensive Metabolic Panel (12/22/17 18:02) Drug Screen Stat (Urine) (12/22/17 18:02) Lactic Acid Analyzer (12/22/17 18:) Magnesium (12/22/17 18:02) Protime With Inr (12/22/17 18:) Partial Thromboplastin Time (12/22/17 18:02) Thyroid Analyzer (12/22/17 18:02) Troponin I (12/22/17 18:02) Ua Culture If Indicated (12/22/17 18:02) Blood Culture (12/22/17 18:02) Chest 1 View, Ap/Pa Only (12/22/17 18:02) Accucheck Stat ONCE (12/22/17 18:07) Saline Lock/Iv-Start (12/22/17 18:07) Ns Iv 1000 Ml (Sodium Chloride 0.9%) (12/22/17 18:07) Manual Differential (12/22/17 18:00) Catheter(Urinary) Insert & Ass 03,15 (12/22/17 18:25) Amylase (12/22/17 18:25) BNP (12/22/17 18:25) Lipase (12/22/17 18:25) Red Cells Leukocytes Reduced (12/22/17 18:25) Type And Screen (12/22/17 18:25) Albuterol/Ipra Inhalation Soln (Duoneb I (12/22/17 18:30) Rt Request For Service (12/22/17 18:30) Svn Small Volume Nebulizer (12/22/17 18:30) Albuterol/Ipra Inhalation Soln (Duoneb I (12/22/17 18:31) Sodium Polystyrene Sulfonate (Kayexalate (12/22/17 18:45) Insulin (Regular) Human (Humulin R (Per (12/22/17 18:45) Calcium Chloride 10% Injection (Calcium (12/22/17 18:45) Saline Lock/Iv-Start (12/22/17 18:47) Saline Lock/Iv-Start (12/22/17 18:47) Ns Iv 1000 Ml (Sodium Chloride 0.9%) (12/22/17 18:47) Ct Chest/Abdomen/Pelvis Wo (12/22/17 18:48) Rt Request For Service (12/22/17 18:53) Albuterol Pre-Mix Nebs (Rt) (Proventil (12/22/17 18:53) Svn Small Volume Nebulizer (12/22/17 18:53) Cefepime Injection (Maxipime Injection) (12/22/17 19:30) Vancomycin Injection (Vancomycin Injecti (12/22/17 19:30) Ekg Tracing (12/22/17 19:20) Albuterol Pre-Mix Nebs (Rt) (Proventil (12/22/17 20:00) Svn Small Volume Nebulizer (12/22/17 19:54) Fentanyl Injection (Sublimaze Injection (12/22/17 20:32) Pantoprazole Injection (Protonix Injecti (12/22/17 20:45) Ns Iv 500 Ml (Sodium Chloride 0.9%) (12/22/17 20:44) Arterial Blood Draw (12/22/17 18:40) Accucheck Stat ONCE (12/22/17 20:58) Arterial Blood Gas (12/22/17 20:58) Medications Given in ED Current Medications Medications Dose Ordered Sig/Bhargavi Route Start Time Stop Time Status Last Admin Dose Admin Albuterol Sulfate 12.5 mg ONCE ONCE INH 12/22/17 20:00 12/22/17 20:01 DC 12/22/17 19:40 12.5 MG Albuterol/ Ipratropium 3 ml ONCE ONCE INH 12/22/17 18:30 12/22/17 18:32 DC 12/22/17 18:35 3 ML Calcium Chloride 1 gm ONCE ONCE INJ 12/22/17 18:45 12/22/17 18:52 DC 12/22/17 18:57 1 GM Cefepime HCl 2000 mg/Sodium Chloride 50 ml @ 100 mls/hr ONCE ONCE IV 12/22/17 19:30 12/22/17 19:59 DC 12/22/17 20:28 100 MLS/HR Insulin Human Regular 20 unit ONCE ONCE IV 12/22/17 18:45 12/22/17 18:51 DC 12/22/17 20:28 20 UNIT Pantoprazole 40 mg ONCE ONCE IV 12/22/17 20:45 12/22/17 20:46 UNV 12/22/17 20:48 40 MG Sodium Chloride 1,000 ml @ 0 mls/hr Q0M ONCE IV 12/22/17 18:07 12/22/17 18:12 DC 12/22/17 18:15 1,000 MLS/HR Sodium Chloride 1,000 ml @ 0 mls/hr Q0M ONCE IV 12/22/17 18:47 12/22/17 18:51 DC 12/22/17 20:28 0 MLS/HR Vancomycin HCl 1000 mg/Sodium Chloride 250 ml @ 250 mls/hr ONCE ONCE IV 12/22/17 19:30 12/22/17 20:29 DC 12/22/17 20:28 250 MLS/HR Vital Signs/I&O 12/22/17 12/22/17 12/22/17 12/22/17 17:50 17:50 18:35 19:40 Temp 97.2 Pulse 66 65 Resp 18 15 B/P (MAP) 95/48 (64) Pulse Ox 92 97 98 100 O2 Delivery Nasal Cannula Nasal Cannula Nasal Cannula O2 Flow Rate 3.00 3.00 3.50 40.00 12/22/17 20:58 Temp 97.6 Pulse 75 Resp 21 B/P (MAP) 112/66 Pulse Ox 97 O2 Delivery NIV Bilevel FiO2 40 Capillary Refill : Departure Communication (Admissions) 1906--SPOKE WITH DR. DE LA TORRE, ADVISES TRANSFER 1909--CALLED [facility], PT PREFERENCE. 1912--SPOKE WITH DR. DUMONT, NETWORKING ADMINISTRATOR, ACCEPTS PT FOR ADMIT/TRANSFER. ADVISES TO START ZOSYN, LEVAQUIN AND VANCOMYCIN --WILL SUBSTITUTE CEFEPIME FOR ZOSYN DUE TO PCN ALLERGY. WILL CALL HIM BACK WITH CT RESULTS AND UA. 2019--CALLED [facility]. SPOKE WITH DR. DUMONT, UPDATE AND CT RESULTS GIVEN Impression Primary Impression: Severe sepsis Additional Impressions: Altered mental status ACIDOSIS--LIKELY MIXED METABOLIC AND RESPIRATORY DKA (diabetic ketoacidoses) Acute on chronic respiratory failure Renal failure Hyperkalemia Severe anemia Disposition: [facility] Condition: Stable (BUT SERIOUS) Departure-Patient Inst. Referrals: [facility] (PCP/Family) Primary Care Physician ALBIN VARGAS DO Dec 22, 2017 18:28
[2017-12-22 18:30] LABS: BAND NEUTROPHILS 5 %; BASOPHILS % (MANUAL) 0 %; EOSINOPHILS % (MANUAL) 0 %; HYPOCHROMASIA SLIGHT; LYMPHOCYTES % (MANUAL) 8 %; METAMYELOCYTES % 2 %; MONOCYTES % (MANUAL) 5 %; NEUTROPHILS % (MANUAL) 80 %
[2017-12-22] MEDS ORDERED: RT-ALBUTEROL/IPRATROPIUM 3 ML (DUONEB) VIAL INH ONE (18:30)
[2017-12-22] MEDS ORDERED: RT-ALBUTEROL/IPRATROPIUM 3 ML (DUONEB) VIAL ONE (18:31)
[2017-12-22 18:32] LABS: ALANINE AMINOTRANSFERASE 27 U/L (0-55); ALBUMIN 3.4 GM/DL (3.2-4.5); ALKALINE PHOSPHATASE 131 U/L (40-136); BILIRUBIN,TOTAL 0.5 MG/DL (0.1-1.0); BUN/CREATININE RATIO 13; CALCIUM 8.5 MG/DL (8.5-10.1); CARBON DIOXIDE 23 MMOL/L (21-32); CHLORIDE 98 MMOL/L (98-107); CREATININE SERUM 4.02 MG/DL (0.60-1.30); GFR ESTIMATED 11; MAGNESIUM 2.1 MG/DL (1.8-2.4); SODIUM 135 MMOL/L (135-145); TOTAL PROTEIN 6.6 GM/DL (6.4-8.2)
[2017-12-22 18:33] LABS: POTASSIUM 6.8 MMOL/L (3.6-5.0)
[2017-12-22 18:34] LABS: GLUCOSE 448 MG/DL (70-105)
[2017-12-22] MEDS ORDERED: CALCIUM CHLORIDE 1 GM/10 ML (IMS) SYR INJ ONE (18:45)
[2017-12-22] MEDS ORDERED: inSUlin (REGULAR) HUMAN 1 UNIT/0.01 ML (CHARGE PER UNIT) IV ONE (18:45)
[2017-12-22] MEDS ORDERED: SOD POLYSTERENE 15 GM/60 ML (KAYEXALATE) UNIT DOSE PO ONE (18:45)
[2017-12-22 18:50] LABS: ABG BASE EXCESS 1.2 MMOL/L (-2.5-2.5); ABG OXYGEN SATURATION 97 % (94-100); ABG PCO2 60 MMHG (35-45); ABG PO2 97 MMHG (79-93); ABG TCO2 29.4 MMOL/L (21.0-31.0)
[2017-12-22 18:51] LABS: ABG PH 7.28 (7.37-7.43)
[2017-12-22 18:52] LABS: ALLENS TEST YES-POS; INSPIRED O2 3.5L; PATIENT TEMP 97.2; VENTILATOR NO
[2017-12-22] MEDS ORDERED: RT-ALBUTEROL SULF 2.5 MG/3 ML PRE-MIX VIAL INH STA (18:53)
[2017-12-22 18:56] LABS: AMYLASE 59 U/L (25-125); LIPASE 21 U/L (8-78)
[2017-12-22 19:04] LABS: CLARITY,URINE CLEAR; COLOR,URINE YELLOW; GLUCOSE, URINE (UA) NEGATIVE (NEGATIVE); KETONES,URINE NEGATIVE (NEGATIVE); LEUKOCYTE ESTERASE ,URINE 1+ (NEGATIVE); NITRITE,URINE NEGATIVE (NEGATIVE); PH,URINE 5 (5-9); PROTEIN,URINE 2+ (NEGATIVE); UROBILINOGEN,URINE 1 MG/DL (NORMAL)
--- OUTSIDE RECORDS SUMMARY | 2017-12-22 19:11 | XMS REPORT ---
Author Author CHELSY VILLAFANA Organization [facility] Address [address] [place] [address] Care Team Providers Care Nipple Threader Name Role Phone CHELSY VILLAFANA Unavailable PROBLEMS Type Condition ICD9-CM Code KDH23-MH Code Onset Dates Condition Status SNOMED Code Problem Chronic pain syndrome G89.4 Active 377008197 Problem Type 2 diabetes mellitus with hyperglycemia E11.65 Active 639961619770038 Problem Primary insomnia F51.01 Active 9486019 Problem Bilateral lower extremity edema R60.0 Active 469754415 Problem Anemia in other chronic diseases classified elsewhere D63.8 Active 914671135 Problem Supplemental oxygen dependent Z99.81 Active 682899281441 Problem Right carpal tunnel syndrome G56.01 Active 502895940911463 Problem 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 Active 526743334325820 Problem Paresthesia of right upper extremity R20.2 Active 66525217 Problem Chronic kidney disease, stage 4 (severe) N18.4 Active 617178504 Problem 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 Active 562690827 Problem Psoriasis of scalp L40.9 Active 563844754 Problem Gastroesophageal reflux disease without esophagitis K21.9 Active 797329950 Problem Chronic obstructive pulmonary disease, unspecified COPD type J44.9 Active 66273030 Problem Type 2 diabetes mellitus with other diabetic kidney complication E11.29 Active 184292651 Problem Diabetic 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 Active 29602954 Problem History of DVT (deep vein thrombosis) Z86.718 Active 286504655 Problem senior care 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 Active 903405097 Problem Oxygen desaturation during sleep G47.34 Active 437166746 Problem Essential hypertension I10 Active 85191113 Problem Depression, unspecified depression type F32.9 Active 72953142 Problem Sleep apnea in adult G47.33 Active 95935237 ALLERGIES No Information ENCOUNTERS Encounter Location Date Diagnosis [facility] [address] [id number] [id number] Oct, Bilateral lower extremity edema R60.0 [address], [place] [address] Oct, [address], [place] [address] Sep, Type 2 diabetes mellitus with other diabetic kidney complication E11.29 and Chronic obstructive pulmonary disease, unspecified COPD type J44.9 [address] [address], [place] [address] 15 Aug, 2017 Type 2 diabetes mellitus with other diabetic kidney complication E11.29 [place] [address] [place] [address] 16249- 6187 12 Aug, 2017 Gastroesophageal reflux disease without esophagitis K21.9 ; senior care 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 ; Chronic pain syndrome G89.4 ; Essential hypertension I10 and Type 2 diabetes mellitus with other diabetic kidney complication E11.29 [place] [address], [place] [address] 9[address] 08 Aug, 2017 Chronic pain syndrome G89.4 [address] [address] [address], [place] [address] 8410 Aug, Type 2 diabetes mellitus with other diabetic kidney complication E11.29 [place] [address], [place] [address] 2587 Jul, Diabetic 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 [facility] [id number], [place] [address] 0239 Jul, Primary insomnia F51.01 [address] [address] [place] [address] 96251- 6799 Jul, [address], [place] [address] 1858 Jul, Type 2 diabetes mellitus with other diabetic kidney complication E11.29 and Chronic obstructive pulmonary disease, unspecified COPD type J44.9 [place] [address], [place] [address] 96[address] Jul, Type 2 diabetes mellitus with other diabetic kidney complication E11.29 [place] [address] [place] [address] 35785- 5584 Jun, Type 2 diabetes mellitus with other diabetic kidney complication E11.29 [facility] [id number] [place] [address] 50983- 0829 Jun, [address] [id number] [place] [address] 46756- 3362 Jun, Chronic obstructive pulmonary disease, unspecified COPD type J44.9 [id number] [place] [address] 96640- 0004 May, Type 2 diabetes mellitus with other diabetic kidney complication E11.29 [id number] [place] [address] 12145- 1002 May, 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 and Essential hypertension I10 [id number] [place] [address] 17986- 1091 May, Anemia in other chronic diseases classified elsewhere D63.8 ; Chronic obstructive pulmonary disease, unspecified COPD type J44.9 ; Oxygen desaturation during sleep G47.34 ; Sleep apnea in adult G47.33 and Supplemental oxygen dependent Z99.81 [address] [place] [address] 64569- 0321 May, Type 2 diabetes mellitus with other diabetic kidney complication E11.29 ; Essential hypertension I10 ; Chronic pain syndrome G89.4 ; BMI 40.0-44.9, adult Z68.41 ; Gastroesophageal reflux disease without esophagitis K21.9 ; 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 ; 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 ; Diabetic 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 ; Edema of both legs R60.0 and Supplemental oxygen dependent Z99.81 [address] [place] [address] 89090- 0629 May, [facility] [id number] [place] [address] 08917- 0019 May, Essential hypertension I10 and Gastroesophageal reflux disease without esophagitis K21.9 [facility] [id number] [place] [address] 41085- 8450 May, [facility] [address] [address]- 2776 May, Type 2 diabetes mellitus with other diabetic kidney complication E11.29 and senior care 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 [place] [id number] [place] [address] 83347- 3448 Apr, Chronic pain syndrome G89.4 and Essential hypertension I10 [place] [address] 67756- 5483 Apr, Type 2 diabetes mellitus with other diabetic kidney complication E11.29 [facility] [id number] [place] [address] 66818- 1205 Apr, Type 2 diabetes mellitus with other diabetic kidney complication E11.29 [facility] [id number] [place] [address] 19427- 8753 Apr, Essential hypertension I10 [facility] [id number] [place] [address] 23749- 2229 Apr, Gastroesophageal reflux disease without esophagitis K21.9 [facility] [id number] [place] [address] 82175- 8471 Apr, Type 2 diabetes mellitus with other diabetic kidney complication E11.29 [facility] [id number] [place] [address] 18220- 2858 Apr, Type 2 diabetes mellitus with other diabetic kidney complication E11.29 and 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 [facility] [id number] [place] [address] 74297- 3738 Mar, Encounter for immunization Z23 and Preoperative examination Z01.818 [place] [address] [place] [address] 92761- 0774 Mar, [place] [id number] [place] [address] 04715- 7951 Mar, Type 2 diabetes mellitus with other diabetic kidney complication E11.29 [place] [id number] [place] [address] 80336- 4121 08 Mar, 2017 Type 2 diabetes mellitus with other diabetic kidney complication E11.29 [facility] [id number] [place] [address] 84398- 8860 Mar, Gastroesophageal reflux disease without esophagitis K21.9 [place] [id number] [place] [address] 11389- 8349 Mar, Essential hypertension I10 [place] [id number] [place] [address] 50625- 6287 Feb, senior care 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 [place] [id number] [place] [address] 11946- 3291 Feb, Type 2 diabetes mellitus with other diabetic kidney complication E11.29 [facility] [id number] [place] [address] 62098- 7237 Feb, Type 2 diabetes mellitus with other diabetic kidney complication E11.29 [facility] [id number] [place] [address] 91087- 0388 Feb, Type 2 diabetes mellitus with other diabetic kidney complication E11.29 [facility] [id number] [place] [address] 66102- 8869 Feb, Gastroesophageal reflux disease without esophagitis K21.9 [facility] [id number] [place] [address] 57324- 2433 Feb, Type 2 diabetes mellitus with other diabetic kidney complication E11.29 [place] [id number] [place] [address] 60686- 3387 Feb, 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 [address] [address], [place] [address]- 4913 Jan, 2017 Type 2 diabetes mellitus with other diabetic kidney complication E11.29 [facility] [address], [place] [address] 2546 Jan, Type 2 diabetes mellitus with other diabetic kidney complication E11.29 [facility] [address], [place] [address]- 5846 Jan, Chronic pain syndrome G89.4 [facility] [address], [place] [address] 2547 Jan, [facility] [address] [place] [address] 82439- 5449 Jan, [facility] [address] [place] [address] 41922- 1248 Jan, [facility] [id number], [place] [address]- 6282 Jan, [facility] [address], [place] [address]- 5447 Jan, Primary insomnia F51.01 ; Type 2 diabetes mellitus with other diabetic kidney complication E11.29 ; Chronic pain syndrome G89.4 and Essential hypertension I10 [facility] [address], [place] [address]- 5502 Jan, Primary insomnia F51.01 [facility] [address], [place] [address]- 8195 Jan, Type 2 diabetes mellitus with other diabetic kidney complication E11.29 [facility] [address], [place] [address]- 7890 Jan, [facility] [address] [address] 2330 Jan, Chronic obstructive pulmonary disease, unspecified COPD type J44.9 [facility] [address], [place] [address]- 3942 Jan, Essential hypertension I10 ; Type 2 diabetes mellitus with other diabetic kidney complication E11.29 ; Chronic obstructive pulmonary disease, unspecified COPD type J44.9 ; Chronic kidney disease, stage 4 (severe) N18.4 ; Right carpal tunnel syndrome G56.01 ; 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 ; senior care (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 and Diabetic 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 [facility] [id number] [place] [address] 03831- 9619 Jan, Gastroesophageal reflux disease without esophagitis K21.9 [facility] [id number] [place] [address] 28523- 3066 Dec, [facility] [id number] [place] [address] 63447- 7051 Dec, [facility] [id number] [place] [address] 57065- 7744 Dec, senior care 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 ; Chronic pain syndrome G89.4 and Essential hypertension I10 [facility] [id number] [place] [address] 05871- 5351 Dec, [facility] [id number] [place] [address] 11863- 1018 Dec, Type 2 diabetes mellitus with other diabetic kidney complication E11.29 [facility] [id number] [place] [address] 71323- 5233 Dec, [facility] [id number] [place] [address] 72926- 8859 Dec, Gastroesophageal reflux disease without esophagitis K21.9 [facility] [id number] [place] [address] 83311- 2344 November, Type 2 diabetes mellitus with other diabetic kidney complication E11.29 [facility] [id number] [place] [address] 29313- 6852 November, [facility] [address] [place] [address]- 3091 November, Type 2 diabetes mellitus with other diabetic kidney complication E11.29 [facility] [address], [place] [address]- 0557 November, [facility] [address], [place] [address]- 5962 November, Type 2 diabetes mellitus with other diabetic kidney complication E11.29 [facility] [id number], [place] [address]- 4143 November, [facility] [address] [place] [address] 58810- 4920 Oct, Essential hypertension I10 [facility] [id number] [place] [address] 20371- 2443 Oct, Psoriasis of scalp L40.9 [facility] [id number] [place] [address] 91570- 2113 Oct, Essential hypertension I10 and Chronic pain syndrome G89.4 [facility] [address], [place] [address]- 1794 Oct, [facility] [address], [place] [address]- 8901 Sep, Type 2 diabetes mellitus with other diabetic kidney complication E11.29 [facility] [address], [place] [address]- 9556 Sep, [facility] [address], [place] [address]- 3571 Sep, Type 2 diabetes mellitus with other diabetic kidney complication E11.29 [facility] [address], [place] [address]- 5558 Sep, Type 2 diabetes mellitus with other diabetic kidney complication E11.29 [facility] [address], [place] [address]- 8071 Sep, Type 2 diabetes mellitus with other diabetic kidney complication E11.29 ; Chronic kidney disease, stage 4 (severe) N18.4 ; Chronic obstructive pulmonary disease, unspecified COPD type J44.9 ; Iron deficiency anemia due to chronic blood loss D50.0 ; 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 ; Gastroesophageal reflux disease without esophagitis K21.9 ; Essential hypertension I10 ; Primary insomnia F51.01 ; Depression, unspecified depression type F32.9 ; Chronic pain syndrome G89.4 ; Wrist pain, right M25.531 ; Paresthesia of right upper extremity R20.2 and Psoriasis of scalp L40.9 [address] 30913- 2080 Sep, [address] 20950- 8530 Aug, Essential hypertension I10 [address] 82557- 0723 Aug, History of DVT (deep vein thrombosis) Z86.718 [address] 49289- 7885 Aug, [address] [place] [address] 29804- 8817 Jul, [address] [address] 77039- 0159 Jul, [place] [id number] [place] [address] 92537- 6428 Jul, 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 ; Chronic pain syndrome G89.4 and Chronic kidney disease, stage 4 (severe) N18.4 [address] [place] [address] 15503- 4856 Jul, [address] [address] 04779- 1915 Jul, [address] [address] 58488- 4244 Jul, [address] [id number] [address]- 3505 Jul, [address] [place] [place] [address] 29109- 6412 Jul, [id number] [place] [address] 56141- 5548 Jul, Type 2 diabetes mellitus with other diabetic kidney complication E11.29 [address] [place] [address] 78291- 8865 16 Jul, 2016 History of DVT (deep vein thrombosis) Z86.718 [address] [place] [address] 02304- 4121 Jun, [address] [place] [address] 44492- 6104 Jun, History of DVT (deep vein thrombosis) Z86.718 [address] [place] [address] 83752- 9465 15 Jun, 2016 Post traumatic stress disorder (PTSD) F43.10 [address] [place] [address] 40686- 6718 07 Jun, 2016 Type 2 diabetes mellitus with other diabetic kidney complication E11.29 ; Diabetic 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 ; Iron deficiency anemia due to chronic blood loss D50.0 ; Chronic obstructive pulmonary disease, unspecified COPD type J44.9 ; 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 ; History [...] pain M79.641 and Right wrist pain M25.531 [id number] [place] [address]- 3932 May, [facility] [address] [place] [address]- 4901 May, [facility] [id number] [place] [address]- 3788 May, [facility] [id number] [place] [address], [place] [address]- 4969 15 May, 2016 [facility] [address] [place] [address]- 5137 May, Anemia in other chronic diseases classified elsewhere D63.8 [facility] [address] [place] [address], [place] [address]- 5531 May, [facility] [address] [place] [address]- 1505 Apr, [facility] [address] [place] [address] 29522- 6723 27 Mar, 2016 Dermatofibroma D23.9 [facility] [address] [place] [address], [place] [address]- 3206 20 Mar, 2016 [facility] [address] [place] [address]- 1966 14 Mar, 2016 Chronic pain syndrome G89.4 [facility] [address] [place] [address] 2544 09 Mar, 2015 [facility] [address], [place] [address]- 2549 07 Mar, 2015 [facility] [address] [place] [address]- 3927 06 Mar, 2016 [facility] [address] [place] [address]- 2540 Feb, [facility] [address], [place] [address]- 3631 Feb, [facility] [address], [place] [address]- 3166 Feb, [address] [place], [place] [address]- 9699 Feb, [facility] [address], [place] [address]- 3994 Feb, [address] [address] [place] [address] 59086- 5250 Feb, [address] [place], [place] [address]- 6471 Feb, Type 2 diabetes mellitus with other diabetic kidney complication E11.29 ; Diabetic 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 ; Iron deficiency anemia due to chronic blood loss D50.0 ; Chronic obstructive pulmonary disease, unspecified COPD type J44.9 ; 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 ; History of DVT (deep vein thrombosis) Z86.718 ; Chronic pain syndrome G89.4 ; Oxygen desaturation during sleep G47.34 ; Sleep apnea in adult G47.33 ; Gastroesophageal reflux disease without esophagitis K21.9 ; Essential hypertension I10 ; Primary insomnia F51.01 ; Depression, unspecified depression type F32.9 and Renal failure, chronic, stage 4 (severe) N18.4 [address] [address], [place] [address]- 5155 Feb, Skin tags, multiple acquired L91.8 [address] [address], [place] [address]- 9581 Jan, [facility] [address] [address] Jan, Dental examination Z01.20 [address] [address], [place] [address]- 6707 Jan, [address] [place], [place] [address]- 4416 Jan, Type 2 diabetes mellitus with other diabetic kidney complication E11.29 ; Diabetic 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 ; Iron deficiency anemia due to chronic blood loss D50.0 ; Chronic obstructive pulmonary disease, unspecified COPD type J44.9 ; 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 ; History of DVT (deep vein thrombosis) Z86.718 ; Chronic pain syndrome G89.4 ; Oxygen desaturation during sleep G47.34 ; Sleep apnea in adult G47.33 ; Gastroesophageal reflux disease without esophagitis K21.9 ; Essential hypertension I10 ; Primary insomnia F51.01 ; Depression, unspecified depression type F32.9 ; Skin lesion L98.9 and Renal failure, chronic, stage 4 (severe) N18.4 [facility] [id number] [place] [address] 84076- 0837 Dec, Diabetes type 2, uncontrolled E11.65 [place] [id number] [place] [address] 50029- 1802 Dec, [address] 11345- 6294 Dec, Type 2 diabetes mellitus with other diabetic kidney complication E11.29 ; Diabetic 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 ; Iron deficiency anemia due to chronic blood loss D50.0 ; Chronic obstructive pulmonary disease, unspecified COPD type J44.9 ; senior care 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 ; History of DVT (deep vein thrombosis) Z86.718 ; Chronic pain syndrome G89.4 ; Oxygen desaturation during sleep G47.34 ; Sleep apnea in adult G47.33 ; Gastroesophageal reflux disease without esophagitis K21.9 ; Essential hypertension I10 ; Primary insomnia F51.01 and Depression, unspecified depression type F32.9 [facility] [address] [id number] [id number] Dec, Dental caries K02.9 [facility] [address] [id number] [id number] Dec, [facility] [address] [place] [address] [id number] Dec, Dental examination Z01.20 [facility] [id number] [id number] November, Dental examination Z01.20 and Dental caries K02.9 [facility] [address] [id number] [id number] Oct, [facility] [address] [id number] [address] Oct, [facility] [address] [id number] [id number] Sep, [facility] [id number] [place] [address] [id number] Sep, [facility] [id number] [place] [id number] Sep, [facility] [id number] [place] [address] [id number] Sep, Other chronic pain 338.29 [facility] [id number] [place] [address] [id number] Aug, Diabetes type 2, uncontrolled E11.65 and Morbid obesity due to excess calories E66.01 [facility] [id number][place] [id number] Aug, Hair loss L65.9 [facility] [id number] [place] [address] [id number] Aug, [facility] [id number][place] [id number] Jul, [facility] [id number] [place] [address] [id number] Jul, [facility] [id number][place] [id number] Jun, [facility] [id number][place] [id number] Jun, Hair loss L65.9 and Disorder of the skin and subcutaneous tissue, unspecified L98.9 [facility] [id number][place] [id number] May, Type 2 diabetes mellitus with other diabetic kidney complication E11.29 ; Type 2 diabetes mellitus with hyperglycemia E11.65 ; Morbid obesity due to excess calories E66.01 and Essential hypertension I10 [address] [place] [address] [id number] May, Diabetes type 2, uncontrolled E11.65 ; Encounter for immunization Z23 and Morbid obesity due to excess calories E66.01 [facility] [id number] [place] [address] [id number] 04 May, 2015 [facility] [address] [address] Apr, [id number] [place] [address] [id number] Apr, Hyperglycemia R73.[address] [id number] Apr, [address] [id number] Apr, Depression F32.9 ; Encounter for immunization Z23 ; Hyperglycemia R73.9 and Anemia in other chronic diseases classified elsewhere D63.8 [facility] [id number] [place] [address] [id number] Mar, [id number] [place] [address] [id number] Feb, Positive occult stool blood test 792.1 [id number] [place] [address] [id number] Feb, Depression 311 ; Other chronic pain 338.29 and Diabetes with renal manifestations, type II or unspecified type, not stated as uncontrolled 250.40 [facility] [id number] [place] [address] 13780- 6923 Feb, Occult blood in stools 792.1 [id number] [place] [address] [id number] Feb, Anemia 285.9 ; Occult blood positive stool 792.1 ; Unspecified essential hypertension 401.9 and Other chronic pain 338.[id number] [place] [address] [id number] Feb, [id number] [place] [address] [id number] Feb, Anemia 285.9 [facility] [place] [id number][place] [id number] Feb, [facility] [place] [id number] [place] [address] [id number] Feb, [facility] [place] [id number], [place] [id number] Feb, Diabetes with renal manifestations, type II or unspecified type, not stated as uncontrolled 250.40 ; Other chronic pain 338.29 ; Unspecified essential hypertension 401.9 ; Anemia 285.9 and Depression 311 [facility] [place] [id number], [place] [id number] Jan, [facility] [id number] [place] [address] [id number] Jan, Anemia 285.9 and Follow up V67.9 [facility] [id number], [place] [id number] Jan, [facility] [id number] [place] [address] [id number] Jan, [facility] [id number], [place] [id number] Jan, [facility] [id number] [place] [address] [id number] Dec, [facility] [id number] [place] [address] 90462- 2546 Oct, [facility] [id number] [place] [address] 08824- 3877 Oct, [facility] [id number] [place] [address] 32140 2546 Sep, [facility] [id number], [place] [id number] Sep, [facility] [id number] [place] [address] 49333- 2668 Sep, [facility] [id number], [place] [id number] Aug, [facility] [address] [id number], [place] [address]- 6786 Aug, 2014 [facility] [place] [facility] [address] [facility] [id number] [place] [address]- 7042 Aug, [facility] [place] [address] [facility] [id number], [place] [id number] Aug, [facility] [place] [facility] [address] [place] [address]- 4690 Aug, [facility] [place] [facility] [address] [facility] [id number], [place] [address]- 8658 Aug, [facility] [place] [address] [facility] [id number] [place] [id number] Aug, [facility] [place] [facility] [address] [id number] [place] [address]- 0137 Aug, [facility] [place] [id number], [place] [id number] Jul, [facility] [place] [facility] [address] [id number], [place] [address]- 8765 Jul, [facility] [place] [facility] [address]00565100[place], [place] [address]- 7190 Jul, [facility] [place] [address] [facility] [id number], [place] [id number] Jul, [facility] [place] [facility] [address]00565100[place], [place] [address]- 1008 Jul, [facility] [place] [address] [facility] [id number], [place] [id number] Jul, [facility] [place] [facility] [address] [facility] [id number], [place] [address]- 8580 Jul, [facility] [place] [address] [id number], [place] [id number] Jun, [facility] [place] [address] [facility] [id number], [place] [id number] Jun, [facility] [place] [facility] [address] [id number], [place] [address]- 0563 Jun, [facility] [place] [facility] [address] [facility] [id number], [place] [address]- 5023 Jun, [facility] [place] [address] [facility] [id number] [place] [id number] Jun, [facility] [place] [facility] [address] [facility] [id number], [place] [address]- 7306 Jun, [facility] [place] [address] [facility] [id number], [place] [id number] May, [facility] [place] [facility] [address] [facility] [id number], [place] [address]- 5196 May, [facility] [place] [facility] [address] [facility] [id number], [place] [address]- 6184 May, [facility] [place] [address] [facility] [id number], [place] [id number] Apr, [facility] [place] [facility] [address] [facility] [id number], [place] [address]- 9671 Apr, [facility] [place] [address] [facility] [id number], [place] [id number] Apr, [facility] [place] [address] [facility] [id number], [place] [id number] Apr, [facility] [place] [facility] [address] [facility] [id number], [place] [address]- 3602 Apr, [facility] [place] [facility] [address] [facility] [id number], [place] [address]- 3152 Apr, [facility] [place] [address] [facility] [id number], [place] [id number] Mar, [facility] [place] [facility] [address] [facility] [id number], [place] [address]- 7348 Mar, [facility] [place] [address] [facility] [id number], [place] [id number] Mar, [facility] [place] [facility] [address] [facility] [id number], [place] [address]- 9165 17 Mar, 2014 [facility] [place] [address] [facility] [id number],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
--- OUTSIDE RECORDS SUMMARY | 2017-12-22 19:13 | XMS REPORT ---
Author Author CHELSY VILLAFANA Organization [facility] Address [address] [place] [address] Care Team Providers Care Soft Sugar Supervisor Name Role Phone CHELSY VILLAFANA Unavailable PROBLEMS Type Condition ICD9-CM Code XZY24-GD Code Onset Dates Condition Status SNOMED Code Problem Chronic pain syndrome G89.4 Active 047683878 Problem Type 2 diabetes mellitus with hyperglycemia E11.65 Active 307307825190055 Problem Primary insomnia F51.01 Active 4298785 Problem Bilateral lower extremity edema R60.0 Active 080662081 Problem Anemia in other chronic diseases classified elsewhere D63.8 Active 892518023 Problem Supplemental oxygen dependent Z99.81 Active 963842219990 Problem Right carpal tunnel syndrome G56.01 Active 519374572788713 Problem 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 Active 275431812549687 Problem Paresthesia of right upper extremity R20.2 Active 20471882 Problem Chronic kidney disease, stage 4 (severe) N18.4 Active 156170057 Problem 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 Active 894872330 Problem Psoriasis of scalp L40.9 Active 676147589 Problem Gastroesophageal reflux disease without esophagitis K21.9 Active 868934473 Problem Chronic obstructive pulmonary disease, unspecified COPD type J44.9 Active 23961478 Problem Type 2 diabetes mellitus with other diabetic kidney complication E11.29 Active 088219763 Problem Diabetic 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 Active 29790060 Problem History of DVT (deep vein thrombosis) Z86.718 Active 981668432 Problem correction 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 Active 188312697 Problem Oxygen desaturation during sleep G47.34 Active 394875825 Problem Essential hypertension I10 Active 24237593 Problem Depression, unspecified depression type F32.9 Active 23406593 Problem Sleep apnea in adult G47.33 Active 55834232 ALLERGIES No Information ENCOUNTERS Encounter Location Date Diagnosis [facility] [address] [address] November, [facility] [id number] [place] [address] 01895- 8664 Oct, Type 2 diabetes mellitus with other diabetic kidney complication E11.29 [place] [address] [place] [address] 13375- 7649 Oct, Primary insomnia F51.01 [place] [id number] [id number] Oct, Bilateral lower extremity edema R60.0 [place] [id number] [place] [address] 89871- 9192 Oct, [place] [id number] [place] [address] 53498- 9447 Sep, Type 2 diabetes mellitus with other diabetic kidney complication E11.29 and Chronic obstructive pulmonary disease, unspecified COPD type J44.9 [place] [address] [place] [address] 68605- 1424 Aug, Type 2 diabetes mellitus with other diabetic kidney complication E11.29 [place] [id number] [place] [address] 46077- 1569 Aug, Gastroesophageal reflux disease without esophagitis K21.9 ; correction 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 ; Chronic pain syndrome G89.4 ; Essential hypertension I10 and Type 2 diabetes mellitus with other diabetic kidney complication E11.29 [place] [address] [address] 08 Aug, 2017 Chronic pain syndrome G89.4 [place] [id number] [place] [address] 75427- 1387 Aug, Type 2 diabetes mellitus with other diabetic kidney complication E11.29 [place] [address] [place] [address] 18726- 9969 Jul, Diabetic 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 [place] [id number] [address] 37[address] Jul, Primary insomnia F51.01 [place] [id number] [place] [address] 15991- 3405 Jul, [facility] [id number] [place] [address] 95008- 6218 Jul, Type 2 diabetes mellitus with other diabetic kidney complication E11.29 and Chronic obstructive pulmonary disease, unspecified COPD type J44.9 [facility] [id number] [place] [address] 58923- 1025 Jul, Type 2 diabetes mellitus with other diabetic kidney complication E11.29 [place] [id number] [place] [address] 09206- 2562 Jun, Type 2 diabetes mellitus with other diabetic kidney complication E11.29 [place] [id number] [place] [address] 40046- 7773 Jun, [place] [id number] [place] [address] 09385- 7752 Jun, Chronic obstructive pulmonary disease, unspecified COPD type J44.9 [place] [id number] [place] [address] 98743- 7504 May, Type 2 diabetes mellitus with other diabetic kidney complication E11.29 [place] [address] [place] [address] 45664- 5995 May, correction 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 and Essential hypertension I10 [place] [id number] [place] [address] 86144- 8733 May, Anemia in other chronic diseases classified elsewhere D63.8 ; Chronic obstructive pulmonary disease, unspecified COPD type J44.9 ; Oxygen desaturation during sleep G47.34 ; Sleep apnea in adult G47.33 and Supplemental oxygen dependent Z99.81 [place] [address] [address] 9759 May, Type 2 diabetes mellitus with other diabetic kidney complication E11.29 ; Essential hypertension I10 ; Chronic pain syndrome G89.4 ; BMI 40.0-44.9, adult Z68.41 ; Gastroesophageal reflux disease without esophagitis K21.9 ; 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 ; 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 ; Diabetic 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 ; Edema of both legs R60.0 and Supplemental oxygen dependent Z99.81 [place] [id number] [place] [address] 39466- 2135 May, [place] [id number] [place] [address] 42483- 9378 May, Essential hypertension I10 and Gastroesophageal reflux disease without esophagitis K21.9 [place] [id number] [place] [address] 67889- 5064 May, [place] [address] 71150- 5604 May, Type 2 diabetes mellitus with other diabetic kidney complication E11.29 and correction 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 [place] [id number] [place] [address] 49426- 3797 Apr, Chronic pain syndrome G89.4 and Essential hypertension I10 [place] [id number] [place] [address] 20657- 6061 Apr, Type 2 diabetes mellitus with other diabetic kidney complication E11.29 [place] [id number] [place] [address] 16934- 1277 Apr, Type 2 diabetes mellitus with other diabetic kidney complication E11.29 [place] [id number] [place] [address] 87416- 0801 Apr, Essential hypertension I10 [place] [id number] [place] [address] 38941- 2068 Apr, Gastroesophageal reflux disease without esophagitis K21.9 [place] [id number] [place] [address] 38229- 6878 Apr, Type 2 diabetes mellitus with other diabetic kidney complication E11.29 [facility] [id number] [place] [address] 37702- 0239 Apr, Type 2 diabetes mellitus with other diabetic kidney complication E11.29 and 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 [facility] [id number] [place] [address] 52240- 3780 Mar, Encounter for immunization Z23 and Preoperative examination Z01.818 [facility] [address] 59692- 1758 Mar, [place] [address] 60603- 5070 Mar, Type 2 diabetes mellitus with other diabetic kidney complication E11.29 [place] [address] 01037- 6518 Mar, Type 2 diabetes mellitus with other diabetic kidney complication E11.29 [place] [id number] [place] [address] 57986- 9997 Mar, Gastroesophageal reflux disease without esophagitis K21.9 [facility] [address] 42858- 6164 Mar, Essential hypertension I10 [place] [id number] [place] [address] 94467- 8088 Feb, 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 [facility] [id number] [place] [address] 02385- 8555 Feb, Type 2 diabetes mellitus with other diabetic kidney complication E11.29 [facility] [id number] [place] [address] 61137- 0778 Feb, Type 2 diabetes mellitus with other diabetic kidney complication E11.29 [facility] [id number] [place] [address] 34980- 3148 Feb, Type 2 diabetes mellitus with other diabetic kidney complication E11.29 [facility] [id number] [place] [address] 34775- 2223 Feb, Gastroesophageal reflux disease without esophagitis K21.9 [facility] [id number] [place] [address] 62453- 8970 Feb, Type 2 diabetes mellitus with other diabetic kidney complication E11.29 [facility] [address] [place] [address] 14533- 0176 Feb, 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 [facility] [id number] [place] [address] 60761- 9899 Jan, Type 2 diabetes mellitus with other diabetic kidney complication E11.29 [facility] [id number] [place] [address] 46142- 1238 Jan, Type 2 diabetes mellitus with other diabetic kidney complication E11.29 [facility] [id number] [place] [address] 05153- 6699 Jan, Chronic pain syndrome G89.4 [facility] [id number] [place] [address] 76886- 4707 Jan, [facility] [id number] [place] [address] 89335- 0657 Jan, [facility] [address] [place] [address] 39930- 3795 Jan, [facility] [address] [place] [address] 72827- 5490 Jan, [facility] [id number] [place] [address] 48637- 9629 Jan, Primary insomnia F51.01 ; Type 2 diabetes mellitus with other diabetic kidney complication E11.29 ; Chronic pain syndrome G89.4 and Essential hypertension I10 [facility] [address] [place] [address] 38406- 3451 Jan, Primary insomnia F51.01 [facility] [address] [place] [address] 74570- 9031 Jan, Type 2 diabetes mellitus with other diabetic kidney complication E11.29 [facility] [address] [address]- 6680 Jan, [facility] [id number] [place] [address] 08373- 9160 Jan, Chronic obstructive pulmonary disease, unspecified COPD type J44.9 [facility] [address] [place] [address] 80246- 0445 Jan, Essential hypertension I10 ; Type 2 diabetes mellitus with other diabetic kidney complication E11.29 ; Chronic obstructive pulmonary disease, unspecified COPD type J44.9 ; Chronic kidney disease, stage 4 (severe) N18.4 ; Right carpal tunnel syndrome G56.01 ; 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 ; correction (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 and Diabetic 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 [place] [id number] [place] [address] 88760- 4515 Jan, Gastroesophageal reflux disease without esophagitis K21.9 [facility] [id number] [place] [address] 12538- 1806 Dec, [place] [id number] [place] [address] 80226- 2071 Dec, [facility] [id number] [place] [address] 57262- 5284 Dec, 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 ; Chronic pain syndrome G89.4 and Essential hypertension I10 [facility] [address] [place] [address] 61010- 5235 Dec, [facility] [id number] [place] [address] 61251- 8872 Dec, Type 2 diabetes mellitus with other diabetic kidney complication E11.29 [facility] [id number] [place] [address] 28583- 8031 Dec, [facility] [id number] [place] [address] 52636- 3344 Dec, Gastroesophageal reflux disease without esophagitis K21.9 [facility] [id number] [place] [address] 34429- 1268 November, Type 2 diabetes mellitus with other diabetic kidney complication E11.29 [facility] [id number] [place] [address] 47327- 7392 November, [facility] [id number] [place] [address] 78151- 3455 November, Type 2 diabetes mellitus with other diabetic kidney complication E11.29 [facility] [id number] [place] [address] 48798- 7587 November, [facility] [id number] [place] [address] 17800- 8597 November, Type 2 diabetes mellitus with other diabetic kidney complication E11.29 [facility] [id number] [place] [address] 28226- 6153 November, [facility] [id number] [place] [address] 95455- 7125 Oct, Essential hypertension I10 [facility] [id number] [place] [address] 02733- 6338 Oct, Psoriasis of scalp L40.9 [facility] [id number] [place] [address] 75842- 1727 Oct, Essential hypertension I10 and Chronic pain syndrome G89.4 [facility] [id number] [place] [address] 23627- 0500 Oct, [facility] [id number] [place] [address] 98032- 5338 Sep, Type 2 diabetes mellitus with other diabetic kidney complication E11.29 [facility] [id number] [place] [address] 63352- 8820 Sep, [facility] [id number] [place] [address] 16037- 0168 Sep, Type 2 diabetes mellitus with other diabetic kidney complication E11.29 [place] [id number] [place] [address] 95452- 2102 Sep, Type 2 diabetes mellitus with other diabetic kidney complication E11.29 [place] [id number] [place] [address] 30628- 4947 09 Sep, 2016 Type 2 diabetes mellitus with other diabetic kidney complication E11.29 ; Chronic kidney disease, stage 4 (severe) N18.4 ; Chronic obstructive pulmonary disease, unspecified COPD type J44.9 ; Iron deficiency anemia due to chronic blood loss D50.0 ; 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 ; Gastroesophageal reflux disease without esophagitis K21.9 ; Essential hypertension I10 ; Primary insomnia F51.01 ; Depression, unspecified depression type F32.9 ; Chronic pain syndrome G89.4 ; Wrist pain, right M25.531 ; Paresthesia of right upper extremity R20.2 and Psoriasis of scalp L40.9 [place] [id number] [place] [address] 18832- 1817 Sep, [place] [id number] [place] [address] 11773- 0970 Aug, Essential hypertension I10 [place] [id number] [place] [address] 35548- 6978 Aug, History of DVT (deep vein thrombosis) Z86.718 [place] [id number] [place] [address] 31615- 7886 Aug, [place] [id number] [place] [address] 53060- 0863 Jul, [place] [id number] [place] [address] 10619- 5089 Jul, [place] [id number] [place] [address] 33214- 1043 Jul, 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 ; Chronic pain syndrome G89.4 and Chronic kidney disease, stage 4 (severe) N18.4 [place] [address] [address]- 2113 Jul, [place] [address] [address]- 6027 Jul, [place] [address] [address]- 5303 Jul, [place] [id number] [place] [address] 31119- 7180 Jul, [place] [address] [address]- 9967 Jul, [place] [address] [place] [address] 67385- 8593 Jul, Type 2 diabetes mellitus with other diabetic kidney complication E11.29 [place] [address] [address]- 5896 Jul, History of DVT (deep vein thrombosis) Z86.718 [place] [address] [address]- 6907 Jun, [place] [address] [place] [address] 14048- 9429 Jun, History of DVT (deep vein thrombosis) Z86.718 [place] [address] [address]- 3158 15 Jun, 2016 Post traumatic stress disorder (PTSD) F43.10 [place] [address] [address]- 4336 07 Jun, 2016 Type 2 diabetes mellitus with other diabetic kidney complication E11.29 ; Diabetic 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 ; Iron deficiency anemia due to chronic blood loss D50.0 ; Chronic obstructive pulmonary disease, unspecified COPD type J44.9 ; 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 ; [...] pain M79.641 and Right wrist pain M25.531 [facility] [address] 34722- 7855 28 May, 2016 [facility] [address] 44001- 2123 23 May, 2016 [place] [id number] [place] [address] 36967- 0359 21 May, 2016 [place] [address] 02385- 4052 15 May, 2016 [place] [address] 47629- 2778 11 May, 2016 Anemia in other chronic diseases classified elsewhere D63.8 [place] [address] 94672- 8177 02 May, 2016 [facility] [id number] [place] [address] 49521- 3600 10 Apr, 2016 [facility] [id number] [place] [address] 81154- 7162 27 Mar, 2016 Dermatofibroma D23.9 [facility] [id number] [place] [address] 39687- 5780 20 Mar, 2016 [facility] [address] 92480- 1968 14 Mar, 2016 Chronic pain syndrome G89.4 [facility] [id number] [place] [address] 60402- 9095 09 Mar, 2016 [facility] [address] 56752- 5300 Mar, [facility] [address] [address]- 8492 Mar, [facility] [address] [place] [address] 56574- 7280 Feb, [facility] [address] [address]- 9052 Feb, [facility] [id number] [place] [address] 02907- 0087 Feb, [facility] [id number] [place] [address] 78392- 1507 Feb, [facility] [id number] [place] [address] 38666- 4559 Feb, [facility] [id number] [place] [address] 39908- 4334 Feb, [facility] [id number] [place] [address] 10104- 7231 Feb, Type 2 diabetes mellitus with other diabetic kidney complication E11.29 ; Diabetic 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 ; Iron deficiency anemia due to chronic blood loss D50.0 ; Chronic obstructive pulmonary disease, unspecified COPD type J44.9 ; correction 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 ; History of DVT (deep vein thrombosis) Z86.718 ; Chronic pain syndrome G89.4 ; Oxygen desaturation during sleep G47.34 ; Sleep apnea in adult G47.33 ; Gastroesophageal reflux disease without esophagitis K21.9 ; Essential hypertension I10 ; Primary insomnia F51.01 ; Depression, unspecified depression type F32.9 and Renal failure, chronic, stage 4 (severe) N18.4 [facility] [address] [place] [address] 83162- 6874 Feb, Skin tags, multiple acquired L91.8 [facility] [address] [address]- 3595 Jan, [place] [address] [facility] [id number] [id number] Jan, Dental examination Z01.20 [place] [address] [address]- 8338 Jan, [place] [address] [place] [id number] [address]- 9506 Jan, Type 2 diabetes mellitus with other diabetic kidney complication E11.29 ; Diabetic 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 ; Iron deficiency anemia due to chronic blood loss D50.0 ; Chronic obstructive pulmonary disease, unspecified COPD type J44.9 ; correction 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 ; History of DVT (deep vein thrombosis) Z86.718 ; Chronic pain syndrome G89.4 ; Oxygen desaturation during sleep G47.34 ; Sleep apnea in adult G47.33 ; Gastroesophageal reflux disease without esophagitis K21.9 ; Essential hypertension I10 ; Primary insomnia F51.01 ; Depression, unspecified depression type F32.9 ; Skin lesion L98.9 and Renal failure, chronic, stage 4 (severe) N18.4 [place] [address] [address]- 7899 Dec, Diabetes type 2, uncontrolled E11.65 [place] [address] [address]- 1471 Dec, [address] [address]- 1094 Dec, Type 2 diabetes mellitus with other diabetic kidney complication E11.29 ; Diabetic 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 ; Iron deficiency anemia due to chronic blood loss D50.0 ; Chronic obstructive pulmonary disease, unspecified COPD type J44.9 ; 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 ; History of DVT (deep vein thrombosis) Z86.718 ; Chronic pain syndrome G89.4 ; Oxygen desaturation during sleep G47.34 ; Sleep apnea in adult G47.33 ; Gastroesophageal reflux disease without esophagitis K21.9 ; Essential hypertension I10 ; Primary insomnia F51.01 and Depression, unspecified depression type F32.9 [facility] [address] [id number] [id number] Dec, Dental caries K02.9 [facility] [id number] [place] [address] [id number] Dec, [facility] [address] [id number] [id number] Dec, Dental examination Z01.20 [facility] [id number] [place] [address] [id number] November, Dental examination Z01.20 and Dental caries K02.9 [facility] [id number] [place] [address] [id number] Oct, [facility] [id number] [place] [address] [id number] Oct, [facility] [id number] [place] [address] [id number] Sep, [facility] [id number] [place] [address] [id number] Sep, [facility] [facility] [address] [id number] [place] [address] [id number] Sep, [facility] [address] [id number] [place] [address] [id number] Sep, Other chronic pain 338.29 [facility] [address] [id number] [place] [address] [id number] Aug, Diabetes type 2, uncontrolled E11.65 and Morbid obesity due to excess calories E66.01 [facility] [address] [id number] [place] [address] [id number] Aug, Hair loss L65.9 [facility] [address] [id number] [place] [address] [id number] Aug, [facility] [address] [id number] [place] [address] [id number] Jul, [facility] [address] [id number] [place] [address] [id number] Jul, [facility] [id number] [place] [address] [id number] Jun, [place] [id number] [place] [address] [id number] Jun, Hair loss L65.9 and Disorder of the skin and subcutaneous tissue, unspecified L98.9 [place] [id number] [place] [address] [id number] May, Type 2 diabetes mellitus with other diabetic kidney complication E11.29 ; Type 2 diabetes mellitus with hyperglycemia E11.65 ; Morbid obesity due to excess calories E66.01 and Essential hypertension I10 [place] [id number] [place] [address] [id number] May, Diabetes type 2, uncontrolled E11.65 ; Encounter for immunization Z23 and Morbid obesity due to excess calories E66.01 [place] [id number] [place] [address] [id number] May, [facility] [address] [address] Apr, [place] [id number] [place] [address] [id number] Apr, Hyperglycemia R73.9 [place] [id number] [place] [address] [id number] Apr, [place] [id number] [place] [address] [id number] Apr, Depression F32.9 ; Encounter for immunization Z23 ; Hyperglycemia R73.9 and Anemia in other chronic diseases classified elsewhere D63.8 [facility] [address] [id number] Mar, [address] [place] [address] [id number] Feb, Positive occult stool blood test 792.[address] [id number] Feb, Depression 311 ; Other chronic pain 338.29 and Diabetes with renal manifestations, type II or unspecified type, not stated as uncontrolled 250.40 [facility] [id number] [place] [address]- 6894 Feb, Occult blood in stools 792.1 [facility] [id number] [id number] Feb, Anemia 285.9 ; Occult blood positive stool 792.1 ; Unspecified essential hypertension 401.9 and Other chronic pain 338.29 [facility] [id number] [place] [address] [id number] Feb, [facility] [id number] [place] [address] [id number] Feb, Anemia 285.9 [facility] [id number] [place] [address] [id number] Feb, [facility] [id number] [place] [address] [id number] Feb, [facility] [id number] [place] [address] [id number] Feb, Diabetes with renal manifestations, type II or unspecified type, not stated as uncontrolled 250.40 ; Other chronic pain 338.29 ; Unspecified essential hypertension 401.9 ; Anemia 285.9 and Depression 311 [facility] [id number] [place] [address] [id number] Jan, [facility] [id number] [place] [address] [id number] Jan, Anemia 285.9 and Follow up V67.9 [facility] [id number] [place] [address] [id number] Jan, [facility] [id number] [place] [address] [id number] Jan, [facility] [id number] [place] [address] [id number] Jan, [facility] [id number] [place] [address] [id number] Dec, [facility] [id number] [place] [address] [id number] 3701 Oct, [facility] [id number] [place] [address] 02739- 9305 Oct, [facility] [id number] [place] [address] 55661- 1476 Sep, [facility] [place] [address] [facility] [id number] [place] [id number] Sep, [facility] [place] [facility] [address] [facility] [id number] [address]- 7476 Sep, [facility] [place] [address] [facility] [id number], [place] [id number] Aug, [facility] [place] [facility] [address] [facility] [id number] [address]- 1176 Aug, [facility] [place] [facility] [address] [facility] [id number] [address]- 7319 Aug, [facility] [place] [address] [facility] [id number], [place] [id number] Aug, [facility] [place] [facility] [address]00565100[place] [address]- 0058 Aug, [facility] [place] [facility] [address] [id number] [address]- 8629 Aug, [facility] [place] [address] [facility] [id number], [place] [id number] Aug, [facility] [place] [facility] [address] [id number] [address]- 5856 Aug, [facility] [place] [address] [facility] [id number], [place] [id number] Jul, [facility] [place] [facility] [address]00565100[place] [address]- 9746 Jul, [facility] [place] [facility] [address] [facility] [id number] [address]- 4961 Jul, [facility] [place] [address] [facility] [id number], [place] [id number] Jul, [facility] [place] [facility] [address] [facility] [id number] [address]- 3606 Jul, [facility] [place] [address] [facility] [id number], [place] [id number] Jul, [facility] [place] [facility] [address] [facility] [id number] [address]- 2546 Jul, [facility] [place] [address] [id number] [place] [id number] Jun, [facility] [place] [address] [facility] [id number], [place] [id number] Jun, [facility] [place] [facility] [address] [facility] [id number] [address]- 8786 Jun, [facility] [place] [facility] [address] [facility] [id number] [address]- 3938 Jun, [facility] [place] [address] [facility] [id number] [place] [id number] Jun, [facility] [place] [facility] [address] [facility] [id number] [address]- 7446 Jun, [facility] [place] [address] [id number], [place] [id number] May, [facility] [place] [facility] [address] [facility] [id number] [address]- 0070 May, [facility] [place] [facility] [address] [facility] [id number] [address]- 6459 May, [facility] [place] [address] [facility] [id number], [place] [id number] Apr, [facility] [place] [facility] [address] [facility] [id number] [address]- 8676 Apr, [facility] [place] [address] [facility] [id number], [place] [id number] Apr, [facility] [place] [address] [facility] [id number], [place] 726852381 Apr, [facility] [place] [facility] [address] [facility] [id number] [address]- 3396 Apr, [facility] [place] [facility] [address] [facility] [id number] [address]- 2726 Apr, [facility] [place] [address] [facility] [id number], [place] [id number] Mar, [facility] [place] [facility] [address] [id number] [place] [address]- 7620 18 Mar, 2014 [facility] [place] [address] [id number] [place] [id number] Mar, [facility] [place] [facility] [address] [facility] [id number] [place]- 1049 Mar, [facility] [place] [address] [id number] [place] [id number] Mar, [facility] [place] [facility] [address] [facility] [id number] [place] [address]- 1994 Mar, [facility] [place] [address] [id number] [place] [id number] Mar, [facility] [place] [facility] [address] [facility] [id number] [place] [address]- 8842 Mar, [facility] [place] [address] [facility] [id number] [place] [id number] Mar, [facility] [place] [facility] [address] [facility] [id number] [address]- 2419 Mar, [facility] [place] [address] [facility] [id number] [place] 619823859 Feb, [facility] [place] [facility] [address] [facility] [id number] [address]- 0801 Feb, [facility] [place] [address] [id number] [place] [id number] Jan, [facility] [place] [facility] [address] [facility] [id number] [address]- 6851 Jan, [facility] [place] [address] [id number] [place] [id number] Jan, [facility] [place] [facility] [address] [facility] [id number] [place] [address]- 2756 Jan, [facility] [place] [address] [id number], [place] [id number] Jan, [facility] [place] [facility] [address] [facility] [id number], [place] 27639801- 0088 Jan, [facility] [place] [facility] [address] [id number] [place] [address]- 2546 Dec, [facility] [place] [facility] [address] [id number] [place] [address]- 2546 Dec, [facility] [place] [address] [id number] [place] [id number] November, [facility] [place] [facility] [address] [id number] [place] [address]- 2546 November, [facility] [place] [address] [id number] [place] [id number] November, [facility] [place] [facility] [address] [id number] [place] [address]- 2546 November, [facility] [place] [address] [id number] [place] [id number] Oct, [facility] [place] [facility] [address] [id number] [place] [address]- 8546 Oct, [facility] [place] [facility] [address] [id number] [place] [address]- 0136 Oct, [facility] [place] [facility] [address] [id number] [place] [address]- 4246 Oct, [facility] [place] [facility] [address] [id number] [place] [address]- 2546 Oct, [facility] [place] [facility] [address] [id number] [place] [address]- 2546 Oct, [facility] [place] [address] [id number] [place] [id number] Sep, [facility] [place] [address] [id number] [place] 834960722 Sep, [facility] [place] [facility] [address] [id number] [place] [address]- 2546 Sep, [facility] [place] [facility] [address] [id number] [place] [address]- 2546 Sep, [facility] [place] [address] [id number], [place] 143047242 Sep, [facility] [place] [facility] [address]00565100[place] [address]- 1765 Sep, [facility] [place] [facility] [address] [id number] [address]- 2104 Aug, [facility] [place] [facility] [address]00565100[place] [address]- 0427 Aug, [facility] [place] [address] [facility] [id number], [place] 673802819 Aug, [facility] [place] [address] [id number], [place] [id number] Aug, [facility] [place] [facility] [address]00565100[place] [address]- 7516 Aug, [facility] [place] [id number], [place] [id number] Aug, [facility] [place] [facility] [address]00565100[place] [address]- 7494 Aug, [facility] [place] [address] [id number], [place] [id number] Aug, [facility] [place] [facility] [address]00565100[place] [address]- 7437 Aug, [facility] [address] [id number], [place] 054956472 Aug, [facility] [place] [facility] [address] [id number] [address]- 2005 Aug, [facility] [place] [address] [facility] [id number], [place] [id number] Aug, [facility] [place] [facility] [address]00565100[place] [address]- 7446 Aug, [facility] [place] [facility] [address] [id number] [address]- 4491 Jul, [facility] [place] [address] [id number], [place] [id number] Jun, [facility] [place] [facility] [address] [id number] [place] [address]- 2086 Jun, [facility] [place] [facility] [address] [id number] [place] [address]- 1976 Jun, [facility] [place] [facility] [address] [facility] [id number] [place] [address]- 6186 Jun, [facility] [place] [address] [facility] [id number], [place] [id number] Jun, [facility] [place] [facility] [address] [id number] [place] [address]- 2076 Jun, [facility] [place] [facility] [address] [facility] [id number] [place] [address]- 2546 Jun, [facility] [place] [address] [facility] [id number], [place] [id number] Jun, [facility] [place] [facility] [address] [facility] [id number] [address]- 6406 Jun, [facility] [place] [facility] [address] [facility] [id number] [place] [address]- 4141 May, [facility] [place] [address] [facility] [id number], [place] 159386428 May, [facility] [place] [facility] [address] [facility] [id number] [address]- 3956 May, [facility] [place] [facility] [address] [facility] [id number] [address]- 0966 May, [facility] [place] [facility] [address] [id number] [address]- 0356 May, [facility] [place] [facility] [address] [facility] [id number] [address]- 4986 May, [facility] [place] [address] [facility] [id number], [place] [id number] May, [facility] [place] [facility] [address] [facility] [id number] [address]- 4126 May, [facility] [place] [address] [facility] [id number], [place] 299856124 May, [facility] [place] [facility] [address] [facility] [id number] [address]- 4826 May, [facility] [place] [address] [facility] [id number], [place] [id number] Apr, [facility] [place] [facility] [address] [facility] [id number] [address]- 7960 Apr, [facility] [place] [facility] [address] [facility] [id number] [address]- 1227 Apr, [facility] [place] [address] [facility] [id number], [place] [id number] Apr, [facility] [place] [facility] [address] [facility] [id number] [address]- 6762 Apr, [facility] [place] [facility] [address] [facility] [id number] [address]- 9283 Apr, [facility] [place] [address] [facility] [id number], [place] 495529242 Apr, [facility] [place] [facility] [address] [facility] [id number] 985420- 6121 Apr, [facility] [place] [facility] [address] [facility] [id number] [address]- 5333 Apr, [facility] [place] [facility] [address] [facility] [id number] [address]- 2032 Apr, [facility] [place] [address] [facility] [id number], [place] [id number] Apr, [facility] [place] [facility] [address] [facility] [id number] [address]- 7456 Apr, [facility] [place] [address] [facility] [id number], [place] 844053721 Apr, [facility] [place] [facility] [address] [facility] [id number] [address]- 2416 Apr, [facility] [place] [address] [facility] [id number], [place] 561437094 Apr, [facility] [address] [facility] [id number] [place] [address]- 3527 Apr, [facility] [place] [facility] [address] [facility] [id number] [address]- 1130 Apr, [facility] [address] [facility] [id number] [address]- 4161 Apr, [facility] [place] [address] [id number], [place] 256179064 Apr, [facility] [place] [facility] [address] [facility] [id number] [place] 43779657- 0556 Mar, [facility] [address] [facility] [id number], [place] 282196- 2795 Mar, [facility] [place] [address] [id number] [place] [id number] Mar, [facility] [place] [address] [id number], [place] 927292525 Mar, [facility] [place] [address] [id number], [place] 381591842 Mar, [facility] [place] [address] [id number] [place] 488653527 Feb, [facility] [place] [address] [id number], [place] 761836146 Feb, [facility] [place] [address] [id number], [place] 586550363 Feb, [facility] [place] [facility] [address] [facility] [id number] [address] 2546 Feb, [facility] [place] [address] [id number] [place] 865575094 Feb, [facility] [place] [address] [id number] [place] 571711451 Feb, [facility] [place] [address] [id number], [place] 121748167 Feb, [facility] [place] [address] [id number], [place] 769648851 Feb, [facility] [place] [address] [id number] [place] 818032255 Feb, [facility] [place] [address] [id number] [place] 387883044 Jan, [facility] [place] [address] [id number] [place] 127314046 Jan, [facility] [place] [address] [id number] [place] 341153764 Jan, [facility] [place] [address] [id number] [place] 554476912 Jan, [facility] [place] [address] [id number] [place] 535898943 Jan, [facility] [address] [facility] [id number] [place] [address]- 4826 Jan, [facility] [place] [address] [id number] [place] 171576512 Jan, [facility] [place] [address] [id number] [place] 577884003 Jan, [facility] [place] [address] [id number] [place] 995298760 Dec, [facility] [place] [address] [id number] [place] [id number] November, [facility] [place] [address] [id number] [place] [id number] November, [facility] [place] [address] [id number] [place] [id number] November, [facility] [place] [address] [id number] [place] 778299211 November, [facility] [place] [address] [id number] [place] 250319236 November, [facility] [place] [address] [id number] [place] 453997150 November, [facility] [place] [address] [id number] [place] [id number] Jul, [facility] [place] [address] [id number] [place] 134552527 Jul, [facility] [place] [address] [id number], [place] [id number] Jul, [facility] [place] [address] [id number] [place] [id number] Jun, [facility] [place] [facility] [address] [facility] [id number] [address]- 2895 Jun, [facility] [place] [address] [facility] [id number] [place] [id number] May, [facility] [address] [facility] [id number] [address] May, [facility] [place] [address] [facility] [id number][place] [id number] May, [facility] [address] [facility] [id number] [address] May, [facility] [place] [address] [facility] [id number][place] [id number] May, [facility] [id number] [address] May, [facility] [place] [address] [facility] [id number][place] [id number] Apr, [facility] [id number] [address] Apr, [facility] [address] [facility] [id number] [address] 18 Apr, 2012 [facility] [place] [address] [id number], [place] [id number] Apr, [facility] [place] [address] [facility] [id number][place] [id number] Apr, [facility] [address] [facility] [id number] Apr, [facility] [address] [facility] [id number] [address] Apr, [facility] [address] [facility] [id number][place] [id number] Apr, [facility] [address] [facility] [id number] [address] Apr, [facility] [place] [address] [id number] [place] [id number] Apr, [facility] [place] [address] [id number] [place] [id number] Apr, [facility] [place] [address] [id number] [place] [id number] Mar, [facility] [place] [address] [id number] [place] [id number] Feb, [facility] [place] [address] [id number] [place] [id number] Jan, [facility] [place] [address] [id number] [place] [id number] Dec, [facility] [place] [address] [id number] [place] [id number] Dec, [facility] [place] [address] [id number] [place] [id number] Dec, [facility] [place] [address] [id number] [place] [id number] Dec, [facility] [place] [address] [id number] [place] [id number] Dec, [facility] [address] [id number] [place] [id number] November, [facility] [place] [address] [id number] [place] [id number] November, [facility] [place] [address] [id number] [place] [id number] November, [facility] [address] [facility] [id number] [address] November, [facility] [place] [address] [id number] [place] [id number] November, [facility] [address] [id number] [place] [id number] November, [facility] [place] [address] [id number] [place] [id number] Oct, [facility] [place] [address] [id number] [place] [id number] Oct, [facility] [place] [address] [id number] [place] [id number] Oct, [facility] [place] [address] [id number] [place] [id number] Oct, [facility] [place] [address] [id number] [place] [id number] Oct, [facility] [place] [address] [id number] [place] [id number] Oct, [facility] [place] [address] [id number] [place] [id number] Sep, [facility] [place] [address] [id number] [place] [id number] Aug, [facility] [place] [address] [id number] [place] [id number] Aug, [facility] [place] [address] [id number] [place] [id number] Jul, [facility] [address] [id number] [address] Jun, [facility] [address] [id number] [place] [address] Jun, [facility] [id number] [place] [address]- [address] Jun, [facility] [id number] [address] Jun, [facility] [id number] [address] May, [facility] [address] [id number] [address] May, [facility] [id number] [place] [address] Apr, [facility] [id number] [address] Apr, [facility] [facility] [address] [id number] [place] [address] 10 Apr, 2011 [facility] [address] [id number] [place] [address] Feb, [facility] [place] [facility] [address] [id number] [place] [address] 15 Aug, 2010 [facility] [place] [facility] [address] [id number] [place] [address] Jul, [facility] [place] [facility] [address] [id number] [place] [address] 30 Jun, 2010 [facility] [place] [facility] [address] [id number] [place] [address] May, [facility] [place] [facility] [address] [id number] [place] [address] May, [facility] [place] [facility] [address] [id number] [place] [address] May, [facility] [place] [facility] [address] [id number] [place] [address] May, [facility] [place] [facility] [address] [id number] [place] [address] May, [facility] [place] [facility] [address] [facility] [id number] [place] [address] 16 Aug, 2009 [facility] [place] [facility] [address] [id number] [place] [address] Jun, [facility] [place] [facility] [address] [id number] [place] [address] Jun, [facility] [place] [facility] [address] [id number] [place] [address] Jun, [facility] [place] [facility] [address] [id number] [place] [address] 24 May, 2009 [facility] [place] [facility] [address] [id number] [place] [address] Apr, [facility] [address] [facility] [id number] [address] Apr, [facility] [address] [id number] [id number] Apr, [facility] [address] [id number] [address] Jan, [facility] [id number] [address] Oct, [facility] [address] [id number] [address] May, [facility] [id number] [address] May, IMMUNIZATIONS No Known Immunizations SOCIAL HISTORY Never Assessed REASON FOR VISIT Refill request PLAN OF CARE VITAL SIGNS MEDICATIONS Medication Instructions Dosage Frequency Start Date End Date Duration Status BD Pen Needle Lovely U/F 32G X 4 MM USE DIRECTED THREE (3) TIMES DAILY. Active Seroquel 50 mg Orally Once a [...] Dialysis Ruthy Reveles 2012 -Dr. Simon now [facility] Medical History Colonoscopy (polyps 2 ) [...]
[2017-12-22 19:14] LABS: AMPHETAMINE SCREEN, URINE NEGATIVE (NEGATIVE); BARBITURATE SCREEN URINE NEGATIVE (NEGATIVE); BENZODIAZEPINES SCREEN URINE NEGATIVE (NEGATIVE); CANNABINOID SCREEN, URINE NEGATIVE (NEGATIVE); COCAINE SCREEN URINE NEGATIVE (NEGATIVE); METHADONE STAT NEGATIVE (NEGATIVE); METHAMPHETAMINE SCREEN URINE S NEGATIVE (NEGATIVE); OPIATE SCREEN URINE NEGATIVE (NEGATIVE); OXYCODONE STAT NEGATIVE (NEGATIVE); PROPOXYPHENE STAT NEGATIVE (NEGATIVE); TRICYCLIC ANTIDEPRESSANTS SCRE POSITIVE (NEGATIVE)
--- OUTSIDE RECORDS SUMMARY | 2017-12-22 19:14 | XMS REPORT ---
Author Author CHELSY VILLAFANA Organization [facility] Address [address] [place] [address] Care Team Providers Care Lcac Radar Operator/Navigator Name Role Phone CHELSY VILLAFANA Unavailable PROBLEMS Type Condition ICD9-CM Code QWS99-YL Code Onset Dates Condition Status SNOMED Code Problem Chronic pain syndrome G89.4 Active 208544941 Problem Type 2 diabetes mellitus with hyperglycemia E11.65 Active 049651189387297 Problem Primary insomnia F51.01 Active 2587371 Problem Bilateral lower extremity edema R60.0 Active 274581825 Problem Anemia in other chronic diseases classified elsewhere D63.8 Active 163443894 Problem Supplemental oxygen dependent Z99.81 Active 156332963305 Problem Right carpal tunnel syndrome G56.01 Active 081080268704756 Problem 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 Active 629101753244028 Problem Paresthesia of right upper extremity R20.2 Active 42782781 Problem Chronic kidney disease, stage 4 (severe) N18.4 Active 281572562 Problem 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 Active 060806093 Problem Psoriasis of scalp L40.9 Active 405278611 Problem Gastroesophageal reflux disease without esophagitis K21.9 Active 934082312 Problem Chronic obstructive pulmonary disease, unspecified COPD type J44.9 Active 56837830 Problem Type 2 diabetes mellitus with other diabetic kidney complication E11.29 Active 743541444 Problem Diabetic 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 Active 54593646 Problem History of DVT (deep vein thrombosis) Z86.718 Active 015958499 Problem care home 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 Active 119663996 Problem Oxygen desaturation during sleep G47.34 Active 940880764 Problem Essential hypertension I10 Active 05973978 Problem Depression, unspecified depression type F32.9 Active 24480891 Problem Sleep apnea in adult G47.33 Active 08040817 ALLERGIES No Information ENCOUNTERS Encounter Location Date Diagnosis [facility] [address] [id number] [id number] Oct, Bilateral lower extremity edema R60.0 [address], [place] [address] Oct, [address], [place] [address] Sep, Type 2 diabetes mellitus with other diabetic kidney complication E11.29 and Chronic obstructive pulmonary disease, unspecified COPD type J44.9 [address] [address], [place] [address] 78[address] 15 Aug, 2017 Type 2 diabetes mellitus with other diabetic kidney complication E11.29 [address] [address] [place] [address] 07046- 3489 12 Aug, 2017 Gastroesophageal reflux disease without esophagitis K21.9 ; care home 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 ; Chronic pain syndrome G89.4 ; Essential hypertension I10 and Type 2 diabetes mellitus with other diabetic kidney complication E11.29 [address] [address], [place] [address] 08 Aug, 2017 Chronic pain syndrome G89.4 [address] [address], [place] [address] 4868 Aug, Type 2 diabetes mellitus with other diabetic kidney complication E11.29 [address] [address], [place] [address] 8896 Jul, Diabetic 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 [address] [id number] [address] 9[address] Jul, Primary insomnia F51.01 [address] [address] [place] [address] 72132- 8762 Jul, [address], [place] [address] Jul, Type 2 diabetes mellitus with other diabetic kidney complication E11.29 and Chronic obstructive pulmonary disease, unspecified COPD type J44.9 [place] [address], [place] [address] 4339 Jul, Type 2 diabetes mellitus with other diabetic kidney complication E11.29 [address] [address] [place] [address] 09748- 7699 Jun, Type 2 diabetes mellitus with other diabetic kidney complication E11.29 [address] [id number] [place] [address] 91175- 1051 Jun, [address] [id number] [place] [address] 12657- 7835 Jun, Chronic obstructive pulmonary disease, unspecified COPD type J44.9 [id number] [place] [address] 11902- 6845 May, Type 2 diabetes mellitus with other diabetic kidney complication E11.29 [id number] [place] [address] 19683- 3454 May, 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 manager 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 and Essential hypertension I10 [id number] [place] [address] 37697- 5766 May, Anemia in other chronic diseases classified elsewhere D63.8 ; Chronic obstructive pulmonary disease, unspecified COPD type J44.9 ; Oxygen desaturation during sleep G47.34 ; Sleep apnea in adult G47.33 and Supplemental oxygen dependent Z99.81 [address] [place] [address] 31073- 6629 May, Type 2 diabetes mellitus with other diabetic kidney complication E11.29 ; Essential hypertension I10 ; Chronic pain syndrome G89.4 ; BMI 40.0-44.9, adult Z68.41 ; Gastroesophageal reflux disease without esophagitis K21.9 ; 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 manager 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 ; 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 ; Diabetic 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 ; Edema of both legs R60.0 and Supplemental oxygen dependent Z99.[address] [place] [address] 91647- 7567 May, [facility] [id number] [place] [address] 67137- 1715 May, Essential hypertension I10 and Gastroesophageal reflux disease without esophagitis K21.9 [facility] [id number] [place] [address] 95487- 1143 May, [facility] [address] [address]55- 3488 May, Type 2 diabetes mellitus with other diabetic kidney complication E11.29 and care home 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 [address] [id number] [place] [address] 86149- 6799 Apr, Chronic pain syndrome G89.4 and Essential hypertension I10 [address] [address] 88704- 1152 Apr, Type 2 diabetes mellitus with other diabetic kidney complication E11.29 [facility] [id number] [place] [address] 74072- 9190 Apr, Type 2 diabetes mellitus with other diabetic kidney complication E11.29 [facility] [id number] [place] [address] 17629- 2573 Apr, Essential hypertension I10 [facility] [id number] [place] [address] 50535- 5514 Apr, Gastroesophageal reflux disease without esophagitis K21.9 [facility] [id number] [place] [address] 83289- 7129 Apr, Type 2 diabetes mellitus with other diabetic kidney complication E11.29 [facility] [id number] [place] [address] 10454- 8355 Apr, Type 2 diabetes mellitus with other diabetic kidney complication E11.29 and 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 manager 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 [facility] [id number] [place] [address] 35037- 8455 Mar, Encounter for immunization Z23 and Preoperative examination Z01.818 [address] [address] [place] [address] 03972- 2708 Mar, [address] [id number] [place] [address] 42838- 5298 Mar, Type 2 diabetes mellitus with other diabetic kidney complication E11.29 [address] [id number] [place] [address] 57856- 1455 08 Mar, 2017 Type 2 diabetes mellitus with other diabetic kidney complication E11.29 [address] [id number] [place] [address] 75186- 2992 Mar, Gastroesophageal reflux disease without esophagitis K21.9 [address] [id number] [place] [address] 26518- 0173 Mar, Essential hypertension I10 [address] [id number] [place] [address] 08153- 4490 Feb, care home 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 [address] [id number] [place] [address] 74932- 4450 Feb, Type 2 diabetes mellitus with other diabetic kidney complication E11.29 [address] [id number] [place] [address] 58021- 5443 Feb, Type 2 diabetes mellitus with other diabetic kidney complication E11.29 [address] [id number] [place] [address] 92099- 8616 Feb, Type 2 diabetes mellitus with other diabetic kidney complication E11.29 [place] [id number] [place] [address] 30826- 3446 Feb, Gastroesophageal reflux disease without esophagitis K21.9 [facility] [id number] [place] [address] 57740- 6278 Feb, Type 2 diabetes mellitus with other diabetic kidney complication E11.29 [address] [id number] [place] [address] 42456- 0611 Feb, 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 manager 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 [address], [place] [address] 3410 Jan, 2017 Type 2 diabetes mellitus with other diabetic kidney complication E11.29 [facility] [address], [place] [address] 2546 Jan, Type 2 diabetes mellitus with other diabetic kidney complication E11.29 [facility] [address], [place] [address] 1635 Jan, Chronic pain syndrome G89.4 [facility] [address], [place] [address] 2545 Jan, [facility] [address] [place] [address] 51232- 6565 Jan, [facility] [address] [place] [address] 96143- 0248 Jan, [facility] [id number], [place] [address]- 9435 Jan, [facility] [address], [place] [address] 0319 Jan, Primary insomnia F51.01 ; Type 2 diabetes mellitus with other diabetic kidney complication E11.29 ; Chronic pain syndrome G89.4 and Essential hypertension I10 [facility] [address], [place] [address] 7495 Jan, Primary insomnia F51.01 [facility] [address], [place] [address]- 1276 Jan, Type 2 diabetes mellitus with other diabetic kidney complication E11.29 [facility] [address], [place] [address]- 7842 Jan, [facility] [address] [address] 4866 Jan, Chronic obstructive pulmonary disease, unspecified COPD type J44.9 [facility] [address], [place] [address]- 0013 Jan, Essential hypertension I10 ; Type 2 diabetes mellitus with other diabetic kidney complication E11.29 ; Chronic obstructive pulmonary disease, unspecified COPD type J44.9 ; Chronic kidney disease, stage 4 (severe) N18.4 ; Right carpal tunnel syndrome G56.01 ; 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 ; care home (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 and Diabetic 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 [facility] [id number] [place] [address] 13896- 0606 Jan, Gastroesophageal reflux disease without esophagitis K21.9 [facility] [id number] [place] [address] 73513- 4682 Dec, [facility] [id number] [place] [address] 75349- 6333 Dec, [facility] [id number] [place] [address] 90311- 1650 Dec, care home 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 ; Chronic pain syndrome G89.4 and Essential hypertension I10 [facility] [id number] [place] [address] 48282- 1544 Dec, [facility] [id number] [place] [address] 49410- 3911 Dec, Type 2 diabetes mellitus with other diabetic kidney complication E11.29 [facility] [id number] [place] [address] 70088- 5535 Dec, [facility] [id number] [place] [address] 04819- 0343 Dec, Gastroesophageal reflux disease without esophagitis K21.9 [facility] [id number] [place] [address] 28802- 6021 November, Type 2 diabetes mellitus with other diabetic kidney complication E11.29 [facility] [id number] [place] [address] 02168- 1260 November, [facility] [address] [place] [address]- 1883 November, Type 2 diabetes mellitus with other diabetic kidney complication E11.29 [facility] [address], [place] [address]- 9684 November, [facility] [address], [place] [address]- 7497 November, Type 2 diabetes mellitus with other diabetic kidney complication E11.29 [facility] [address] [address]- 5916 November, [facility] [address] [place] [address] 66667- 1159 Oct, Essential hypertension I10 [facility] [id number] [place] [address] 13957- 1973 Oct, Psoriasis of scalp L40.9 [facility] [id number] [place] [address] 55102- 7222 Oct, Essential hypertension I10 and Chronic pain syndrome G89.4 [facility] [address], [place] [address]- 6110 Oct, [facility] [address], [place] [address]- 0964 Sep, Type 2 diabetes mellitus with other diabetic kidney complication E11.29 [facility] [address], [place] [address]- 3798 Sep, [facility] [address], [place] [address]- 1896 Sep, Type 2 diabetes mellitus with other diabetic kidney complication E11.29 [facility] [address], [place] [address]- 9224 Sep, Type 2 diabetes mellitus with other diabetic kidney complication E11.29 [facility] [address], [place] [address]- 8986 Sep, Type 2 diabetes mellitus with other diabetic kidney complication E11.29 ; Chronic kidney disease, stage 4 (severe) N18.4 ; Chronic obstructive pulmonary disease, unspecified COPD type J44.9 ; Iron deficiency anemia due to chronic blood loss D50.0 ; 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 manager 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 ; Gastroesophageal reflux disease without esophagitis K21.9 ; Essential hypertension I10 ; Primary insomnia F51.01 ; Depression, unspecified depression type F32.9 ; Chronic pain syndrome G89.4 ; Wrist pain, right M25.531 ; Paresthesia of right upper extremity R20.2 and Psoriasis of scalp L40.9 [address] [place] 90034- 4400 Sep, [address] 63828- 2381 Aug, Essential hypertension I10 [address] 14592- 9238 Aug, History of DVT (deep vein thrombosis) Z86.718 [address] [place] 01468- 8972 Aug, [address] [place] 91441- 0157 Jul, [address] [place] 09217- 5613 Jul, [address] [id number] [place] [address] 20723- 0250 Jul, 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 manager 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 ; Chronic pain syndrome G89.4 and Chronic kidney disease, stage 4 (severe) N18.4 [address] [address] 46680- 5468 Jul, [address] [place] 78088- 5975 Jul, [address] 72465- 5073 Jul, [address] [id number] [address]- 4033 Jul, [address] [place] [place] [address] 36944- 7947 Jul, [id number] [place] [address] 82442- 7859 Jul, Type 2 diabetes mellitus with other diabetic kidney complication E11.29 [id number] [place] [address] 39566- 2197 16 Jul, 2016 History of DVT (deep vein thrombosis) Z86.718 [id number] [place] [address] 50342- 4257 Jun, [id number] [place] [address] 82142- 8460 Jun, History of DVT (deep vein thrombosis) Z86.718 [address] [place] [address] 40608- 5207 15 Jun, 2016 Post traumatic stress disorder (PTSD) F43.10 [address] [place] [address] 13191- 1381 07 Jun, 2016 Type 2 diabetes mellitus with other diabetic kidney complication E11.29 ; Diabetic 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 ; Iron deficiency anemia due to chronic blood loss D50.0 ; Chronic obstructive pulmonary disease, unspecified COPD type J44.9 ; 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 manager 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 ; History [...] pain M79.641 and Right wrist pain M25.531 [id number] [address]- 0191 May, [facility] [address] [place] [address]- 9826 May, [facility] [id number] [place] [address]- 5375 May, [facility] [id number] [place] [address], [place] [address]- 9172 15 May, 2016 [facility] [id number] [place] [address]- 3128 May, Anemia in other chronic diseases classified elsewhere D63.8 [facility] [address] [place] [address], [place] [address]- 5492 May, [facility] [address] [place] [address]- 9326 Apr, [facility] [address] [place] [address] 11929- 1851 27 Mar, 2016 Dermatofibroma D23.9 [facility] [address] [place] [address], [place] [address]- 9820 20 Mar, 2016 [facility] [address] [place] [address]- 3389 14 Mar, 2016 Chronic pain syndrome G89.4 [facility] [address] [place] [address] 2548 09 Mar, 2015 [facility] [address], [place] [address]- 2545 07 Mar, 2015 [facility] [address] [place] [address]- 8153 06 Mar, 2016 [facility] [address] [place] [address]- 2542 Feb, [facility] [address], [place] [address]- 4287 Feb, [facility] [address], [place] [address]- 4136 Feb, [address], [place] [address]- 9233 Feb, [facility] [address], [place] [address]- 2901 Feb, [address] [address] [place] [address] 52498- 6020 Feb, [address], [place] [address]- 8490 Feb, Type 2 diabetes mellitus with other diabetic kidney complication E11.29 ; Diabetic 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 ; Iron deficiency anemia due to chronic blood loss D50.0 ; Chronic obstructive pulmonary disease, unspecified COPD type J44.9 ; 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 manager 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 ; History of DVT (deep vein thrombosis) Z86.718 ; Chronic pain syndrome G89.4 ; Oxygen desaturation during sleep G47.34 ; Sleep apnea in adult G47.33 ; Gastroesophageal reflux disease without esophagitis K21.9 ; Essential hypertension I10 ; Primary insomnia F51.01 ; Depression, unspecified depression type F32.9 and Renal failure, chronic, stage 4 (severe) N18.4 [address], [place] [address]- 9098 Feb, Skin tags, multiple acquired L91.8 [place] [address], [place] [address]- 6214 Jan, [facility] [address] [address] Jan, Dental examination Z01.20 [address] [address], [place] [address]- 1322 Jan, [address] [address], [place] [address]- 7012 Jan, Type 2 diabetes mellitus with other diabetic kidney complication E11.29 ; Diabetic 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 ; Iron deficiency anemia due to chronic blood loss D50.0 ; Chronic obstructive pulmonary disease, unspecified COPD type J44.9 ; 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 manager 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 ; History [...] 4 (severe) N18.4 [facility] [id number] [place] [address] 13283- 6055 Dec, Diabetes type 2, uncontrolled E11.65 [place] [id number] [place] [address] 68987- 0115 Dec, [address] 20767- 0119 Dec, Type 2 diabetes mellitus with other diabetic kidney complication E11.29 ; Diabetic 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 ; Iron deficiency anemia due to chronic blood loss D50.0 ; Chronic obstructive pulmonary disease, unspecified COPD type J44.9 ; care home 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 ; History of DVT (deep vein thrombosis) Z86.718 ; Chronic pain syndrome G89.4 ; Oxygen desaturation during sleep G47.34 ; Sleep apnea in adult G47.33 ; Gastroesophageal reflux disease without esophagitis K21.9 ; Essential hypertension I10 ; Primary insomnia F51.01 and Depression, unspecified depression type F32.9 [facility] [address] [id number] [id number] Dec, Dental caries K02.9 [facility] [address] [id number] [id number] Dec, [facility] [address] [place] [address] [id number] Dec, Dental examination Z01.20 [facility] [id number] [id number] November, Dental examination Z01.20 and Dental caries K02.9 [facility] [address] [id number] [place] [id number] Oct, [facility] [address] [id number] [place] [id number] Oct, [facility] [address] [id number] [place] [id number] Sep, [facility] [id number] [place] [address] [id number] Sep, [facility] [id number] [place] [id number] Sep, [facility] [id number] [place] [address] [id number] Sep, Other chronic pain 338.29 [facility] [id number] [place] [address] [id number] Aug, Diabetes type 2, uncontrolled E11.65 and Morbid obesity due to excess calories E66.01 [facility] [id number] [place] [id number] Aug, Hair loss L65.9 [facility] [id number] [place] [address] [id number] Aug, [facility] [id number] [place] [id number] Jul, [facility] [id number] [place] [address] [id number] Jul, [facility] [id number] [place] [id number] Jun, [facility] [id number] [place] [id number] Jun, Hair loss L65.9 and Disorder of the skin and subcutaneous tissue, unspecified L98.9 [facility] [id number] [place] [id number] May, Type 2 diabetes mellitus with other diabetic kidney complication E11.29 ; Type 2 diabetes mellitus with hyperglycemia E11.65 ; Morbid obesity due to excess calories E66.01 and Essential hypertension I10 [id number] [place] [address] [id number] May, Diabetes type 2, uncontrolled E11.65 ; Encounter for immunization Z23 and Morbid obesity due to excess calories E66.01 [facility] [id number] [place] [address] [id number] May, 2015 [facility] [address] [address]- [address] Apr, [id number] [place] [address] [id number] Apr, Hyperglycemia R73.[address] [id number] Apr, [address] [id number] Apr, Depression F32.9 ; Encounter for immunization Z23 ; Hyperglycemia R73.9 and Anemia in other chronic diseases classified elsewhere D63.8 [facility] [id number] [place] [address] [id number] Mar, [id number] [place] [address] [id number] Feb, Positive occult stool blood test 792.1 [id number] [place] [address] [id number] Feb, Depression 311 ; Other chronic pain 338.29 and Diabetes with renal manifestations, type II or unspecified type, not stated as uncontrolled 250.40 [facility] [id number] [place] [address] 94328- 7404 Feb, Occult blood in stools 792.1 [id number] [place] [address] [id number] Feb, Anemia 285.9 ; Occult blood positive stool 792.1 ; Unspecified essential hypertension 401.9 and Other chronic pain 338.29 [id number] [place] [address] [id number] Feb, [id number] [place] [address] [id number] Feb, Anemia 285.9 [facility] [place] [id number] [place] [id number] Feb, [facility] [place] [id number] [place] [address] [id number] Feb, [facility] [place] [id number] [place] [id number] Feb, Diabetes with renal manifestations, type II or unspecified type, not stated as uncontrolled 250.40 ; Other chronic pain 338.29 ; Unspecified essential hypertension 401.9 ; Anemia 285.9 and Depression 311 [facility] [place] [id number] [place] [id number] Jan, [facility] [place] [id number] [place] [address] [id number] Jan, Anemia 285.9 and Follow up V67.9 [facility] [place] [id number] [place] [id number] Jan, [facility] [place] [id number] [place] [address] [id number] Jan, [facility] [place] [id number] [place] 0[address]4670 Jan, [facility] [place] [id number] [place] [address] [id number] Dec, [facility] [id number] [place] [address] 69987- 2546 Oct, [facility] [id number] [place] [address] 48085- 4705 Oct, [facility] [id number] [place] [address] 87396 2546 Sep, [facility] [place] [id number] [place] 6[address] Sep, [facility] [id number] [place] [address] 11620- 6284 Sep, [facility] [id number] [place] 3[address] Aug, [facility] [address] [id number] [address]- 4[address] Aug, 2014 [facility] [place] [facility] [address] [facility] [id number] [place] [address]- 9466 Aug, [facility] [place] [address] [facility] [id number] [place] [id number] Aug, [facility] [place] [facility] [address] [place] [address]- 4927 Aug, [facility] [place] [facility] [address] [facility] [id number][place] [address]- 4512 Aug, [facility] [place] [address] [facility] [id number] [place] 880608859 Aug, [facility] [place] [facility] [address] [id number] [place] [address]- 8182 Aug, [facility] [place] [id number] [place] [id number] Jul, [facility] [place] [facility] [address] [id number], [place] [address]- 4863 Jul, [facility] [place] [facility] [address]00565100[place], [place] [address]- 9902 Jul, [facility] [place] [address] [facility] [id number] [place] [id number] Jul, [facility] [place] [facility] [address]00565100[place], [place] [address]- 5945 Jul, [facility] [place] [address] [facility] [id number] [place] [id number] Jul, [facility] [place] [facility] [address] [facility] [id number] [address]- 9116 Jul, [facility] [place] [address] [id number] [place] [id number] Jun, [facility] [place] [address] [facility] [id number] [place] 110091696 Jun, [facility] [place] [facility] [address] [id number], [place] [address]- 2841 Jun, [facility] [place] [facility] [address] [facility] [id number][place] [address]- 5381 Jun, [facility] [place] [address] [facility] [id number] [place] [id number] Jun, [facility] [place] [facility] [address] [facility] [id number][place] [address]- 1646 Jun, [facility] [place] [address] [facility] [id number] [place] [id number] May, [facility] [place] [facility] [address] [facility] [id number] [address]- 7533 May, [facility] [place] [facility] [address] [facility] [id number][place] [address]- 2060 May, [facility] [place] [address] [facility] [id number] [place] [id number] Apr, [facility] [place] [facility] [address] [facility] [id number] [address]- 9183 Apr, [facility] [place] [address] [facility] [id number] [place] 748972970 Apr, [facility] [place] [address] [facility] [id number] [place] [id number] Apr, [facility] [place] [facility] [address] [facility] [id number][place] [address]- 7829 Apr, [facility] [place] [facility] [address] [facility] [id number] [address]- 9828 Apr, [facility] [place] [address] [facility] [id number] [place] [id number] Mar, [facility] [place] [facility] [address] [facility] [id number] [address]- 7920 Mar, [facility] [place] [address] [facility] [id number] [place] [id number] Mar, [facility] [place] [facility] [address] [facility] [id number][place] [address]- 9735 17 Mar, 2014 [facility] [place] [address] [facility] [id number] [place] 867683696 Mar, [facility] [place] [facility] [address] [id number] [place] [address]- 8983 Mar, [facility] [place] [address] [id number] [place] [id number] Mar, [facility] [place] [facility] [address] [facility] [id number] [place] [address]- 1896 Mar, [facility] [place] [address] [id number] [place] [id number] Mar, [facility] [place] [facility] [address] [id number] [place] [address]- 7937 Mar, [facility] [place] [address] [id number] [place] [id number] Feb, [facility] [place] [facility] [address] [facility] [id number] [place] [address]- 4506 Feb, [facility] [place] [address] [facility] [id number] [place] [id number] Jan, [facility] [place] [facility] [address] [facility] [id number] [address]- 9287 Jan, [facility] [place] [address] [facility] [id number] [place] 144659843 Jan, [facility] [place] [facility] [address] [facility] [id number], [place] [address]- 4160 Jan, [facility] [place] [address] [id number] [place] [id number] Jan, [facility] [place] [facility] [address] [facility] [id number], [place] [address]- 2628 Jan, [facility] [place] [facility] [address] [facility] [id number] [address]- 4753 Dec, [facility] [place] [facility] [address] [facility] [id number][place] [address]- 3726 Dec, [facility] [place] [address] [facility] [id number] [place] [id number] November, [facility] [place] [facility] [address] [facility] [id number] [address]- 3407 November, [facility] [place] [address] [facility] [id number] [place] [id number] November, [facility] [place] [facility] [address] [id number] [place] [address]- 9248 November, [facility] [place] [address] [facility] [id number] [place] [id number] Oct, [facility] [place] [facility] [address] [facility] [id number] [place] [address]- 7992 Oct, [facility] [place] [facility] [address] [facility] [id number] [place] [address]- 6430 Oct, [facility] [place] [facility] [address] [facility] [id number] [place] [address]- 3021 Oct, [facility] [place] [facility] [address] [id number] [place] [address]- 7668 Oct, [facility] [place] [facility] [address] [id number] [place] [address]- 7559 Oct, [facility] [place] [address] [facility] [id number] [place] [id number] Sep, [facility] [place] [address] [facility] [id number] [place] 344616601 Sep, [facility] [place] [facility] [address] [facility] [id number] [place] [address]- 0513 Sep, [facility] [place] [facility] [address] [facility] [id number][place] [address]- 6424 Sep, [facility] [place] [address] [facility] [id number] [place] 652433359 Sep, [facility] [place] [facility] [address] [facility] [id number] [place] [address]- 4316 Sep, [facility] [place] [facility] [address] [facility] [id number] [place] 47205077- 7268 Aug, [facility] [place] [facility] [address] [id number] [place] [address]- 4902 Aug, [facility] [place] [address] [id number] [place] [id number] Aug, [facility] [place] [address] [facility] [id number] [place] 011371977 Aug, [facility] [place] [facility] [address] [facility] [id number] [address]- 2546 Aug, [facility] [place] [address] [facility] [id number] [place] [id number] Aug, [facility] [place] [facility] [address] [facility] [id number] [address]- 5626 Aug, [facility] [place] [address] [facility] [id number] [place] [id number] Aug, [facility] [place] [facility] [address]00565100[place], [place] [address]- 0796 Aug, [facility] [place] [id number] [place] [id number] Aug, [facility] [place] [facility] [address]00565100[place], [place] [address]- 7378 Aug, [facility] [place] [address] [facility] [id number] [place] [id number] Aug, [facility] [place] [facility] [address]00565100[place], [place] [address]- 0106 Aug, [facility] [place] [facility] [address] [id number], [place] [address]- 8351 Jul, [facility] [place] [address] [facility] [id number] [place] 731918879 Jun, [facility] [place] [facility] [address] [facility] [id number], [place] [address]- 2782 Jun, [facility] [place] [facility] [address] [facility] [id number][place] [address]- 0096 Jun, [facility] [place] [facility] [address] [id number], [place] [address]- 0209 Jun, [facility] [place] [address] [facility] [id number] [place] 778120049 Jun, [facility] [address] [facility] [id number], [place] [address]- 3496 Jun, [facility] [place] [facility] [address] [facility] [id number], [place] [address] 2546 Jun, [facility] [address] [facility] [id number] [place] 630847996 Jun, [facility] [place] [facility] [address] [facility] [id number][place] [address]- 7446 Jun, [facility] [place] [facility] [address] [facility] [id number] [address]- 2373 May, [facility] [place] [address] [facility] [id number] [place] 790727703 May, [facility] [place] [facility] [address]00565100[place], [place] [address]- 1026 May, [facility] [place] [facility] [address] [id number], [place] [address]- 1028 May, [facility] [place] [facility] [address] [id number], [place] [address]- 2409 May, [facility] [place] [facility] [address] [id number], [place] [address]- 1963 May, [facility] [address] [facility] [id number] [place] 142238329 May, [facility] [place] [facility] [address] [facility] [id number], [place] [address]- 8376 May, [facility] [place] [address] [facility] [id number] [place] 071602142 May, [facility] [place] [facility] [address] [facility] [id number], [place] [address]- 2546 May, [facility] [place] [address] [facility] [id number] [place] 989821200 Apr, [facility] [place] [facility] [address] [id number], [place] [address]- 7145 Apr, [facility] [address] [id number] [address]- 7386 Apr, [facility] 120 [facility] [id number] [place] 453629079 Apr, [facility] [place] [facility] [address] [id number], [place] [address]- 5359 Apr, [facility] [place] [facility] [address] [id number], [place] [address]- 3469 Apr, [facility] [address] [facility] [id number] [place] 518115422 Apr, [facility] [place] [facility] [address] [id number], [place] [address]- 1277 Apr, [facility] [place] [facility] [address] [facility] [id number], [place] 111574- 5459 Apr, [facility] [place] [facility] [address] [facility] [id number], [place] 890128- 6005 Apr, [facility] [address] [facility] [id number] [place] 101051302 Apr, [facility] [place] [facility] [address] [id number], [place] [address]- 4826 Apr, [facility] 120 [facility] [id number] [place] 060917728 Apr, [facility] [place] [facility] [address] [facility] [id number], [place] [address]- 1385 Apr, [facility] [place] 120 [facility] [id number] [place] 766620788 Apr, [facility] [place] [facility] [address] [facility] [id number], [place] [address]- 4239 Apr, [facility] [place] [facility] [address] [facility] [id number], [place] [address]- 5604 Apr, [facility] [place] [facility] [address] [id number], [place] [address]- 9766 Apr, [facility] [place] [address] [id number] [place] [id number] Apr, [facility] [address] [facility] [id number], [place] [address]- 2253 Mar, [facility] [address] [facility] [id number], [place] [address]- 3788 Mar, [facility] [place] [address] [id number] [place] [id number] Mar, [facility] [place] [address] [id number] [place] [id number] Mar, [facility] [place] [address] [id number] [place] 255227323 Mar, [facility] [place] [address] [id number] [place] 400489816 Feb, [facility] [place] [address] [id number] [place] 799034324 Feb, [facility] [place] [address] [id number] [place] 106580784 Feb, [facility] [address] [facility] [id number], [place] [address]- 5544 Feb, [facility] [place] [address] [id number] [place] [id number] Feb, [facility] [place] [address] [id number] [place] 145716022 Feb, [facility] [place] [address] [id number] [place] 453531235 Feb, [facility] [place] [address] [id number] [place] 190888281 Feb, [facility] [place] [address] [id number] [place] 682702552 Feb, [facility] [place] [address] [id number] [place] 125171105 Jan, [facility] [place] [address] [id number] [place] 446866334 Jan, [facility] [place] [address] [id number] [place] 780607144 Jan, [facility] [place] [address] [id number] [place] 356847944 Jan, [facility] [place] [address] [id number] [place] 083812822 Jan, [facility] [address] [facility] [id number] [address]- 4366 Jan, [facility] [place] [address] [id number] [place] [id number] Jan, [facility] [place] [address] [id number] [place] 195249348 Jan, [facility] [place] [address] [id number] [place] 160969280 Dec, [facility] [place] [address] [id number] [place] 465597835 November, [facility] [place] [address] [id number] [place] 577259279 November, [facility] [place] [address] [id number] [place] 957982412 November, [facility] [address] [id number] [place] 547186342 November, [facility] [place] [address] [id number] [place] 729694211 November, [facility] [place] [address] [id number] [place] 798801599 November, [facility] [place] [address] [id number] [place] [id number] Jul, [facility] [place] [address] [id number] [place] 869163774 Jul, [facility] [place] [address] [id number] [place] 611570590 Jul, [facility] [place] [address] [id number] [place] 488471255 Jun, [facility] [address]00565100[place], [place] [address]- 1026 Jun, [facility] [place] [address] [id number] [place] 675731259 May, [facility] [address]00565100[place], [place] [address]- 4897 May, [facility] [place] [address] [id number] [place] 951994950 May, [facility] [place] [facility] [address] [facility] [id number], [place] [address]- 9213 May, [facility] [place] [address] [id number] [place] 827521934 May, [facility] [place] [facility] [address] [facility] [id number], [place] [address]- 4420 May, [facility] [place] [address] [id number] [place] 774668402 Apr, [facility] [place] [facility] [address] [facility] [id number] [place] [address] 69933- 7215 Apr, [facility] [place] [facility] [address] [id number], [place] [address]- 9474 Apr, [facility] [place] [address] [id number] [place] 633524752 Apr, [facility] [place] [address] [id number] [place] 628846608 Apr, [facility] [place] [facility] [address] [facility] [id number], [place] [address]- 5674 Apr, [facility] [place] [facility] [address] [facility] [id number], [place] [address]- 3215 Apr, [facility] [place] [address] [id number] [place] 480407771 Apr, [facility] [place] [facility] [address] [facility] [id number], [place] [address]- 8603 Apr, [facility] [place] [address] [id number] [place] 330205965 Apr, [facility] [place] [address] [id number] [place] 715993537 Apr, [facility] [place] [address] [id number] [place] 151882508 Mar, [facility] [place] [address] [id number] [place] 493473591 Feb, [facility] [place] [address] [id number] [place] 56[place]38120 Jan, [facility] [place] [address] [id number] [place] [id number] Dec, [facility] [place] [address] [id number] [place] [id number] Dec, [facility] [place] [address] [id number] [place] [id number] Dec, [facility] [place] [address] [id number] [place] [id number] Dec, [facility] [place] [address] [id number] [place] [id number] Dec, [facility] [place] [address] [id number] [place] [id number] November, [facility] [place] [address] [id number] [place] [id number] November, [facility] [place] [address] [id number] [place] [id number] November, [facility] [address] [facility] [id number], [place] [address] November, [facility] [place] [address] [id number] [place] [id number] November, [facility] [place] [address] [id number] [place] [id number] November, [facility] [place] [address] [id number] [place] [id number] Oct, [facility] [place] [address] [id number] [place] [id number] Oct, [facility] [place] [address] [id number] [place] [id number] Oct, [facility] [place] [address] [id number] [place] [id number] Oct, [facility] [place] [address] [id number] [place] [id number] Oct, [facility] [place] [address] [id number] [place] [id number] Oct, [facility] [place] [address] [facility] [id number] [place] [id number] Sep, [facility] [place] [address] [id number] [place] [id number] Aug, [facility] [place] [address] [id number] [place] [id number] Aug, [facility] [place] [address] [facility] [id number] [place] [id number] Jul, [facility] [place] [facility] [address] [facility] [id number] [place] [address] Jun, [facility] [place] [facility] [address] [facility] [id number] [place] [address], [place] [address] Jun, [facility] [place] [facility] [address] [facility] [id number] [place] [address] Jun, [facility] [place] [facility] [id number] [place] [address], [place] [address] Jun, [facility] [place] [facility] [address] [id number] [address] May, [facility] [place] [facility] [id number] [place] [address] May, [facility] [place] [facility] [address] [id number] [address] Apr, [facility] [place] [facility] [id number], [place] [address] Apr, [facility] [place] [facility] [address] [facility] [id number], [place] [address] Apr, [facility] [place] [facility] [address] [facility] [id number], [place] [address] Feb, [facility] [place] [facility] [address] [facility] [id number], [place] [address] Aug, [facility] [place] [facility] [id number], [place] [address] Jul, [facility] [place] [facility] [address] [id number] [place] [address] 30 Jun, 2010 [facility] [place] [facility] [address] [id number] [place] [address] May, [facility] [place] [facility] [address] [id number] [place] [address] May, [facility] [place] [facility] [address] [id number] [place] [address] May, [facility] [place] [facility] [address] [id number] [place] [address] May, [facility] [place] [facility] [address] [id number] [place] [address] May, [facility] [place] [facility] [address] [facility] [id number] [place] [address] Aug, [facility] [place] [facility] [address] [id number], [place] [address] Jun, [facility] [place] [facility] [address] [facility] [id number], [place] [address] Jun, [facility] [place] [facility] [address] [facility] [id number], [place] [address] Jun, [facility] [place] [facility] [address] [facility] [id number], [place] [address] May, [facility] [place] [facility] [address] [id number], [place] [address] 28 Apr, 2009 [facility] [place] [facility] [address] [id number], [place] [address] Apr, [facility] [place] [facility] [address] [id number], [place] [address] 15 Apr, 2009 [facility] [place] [facility] [address] [facility] [id number], [place] [address] Jan, [facility] [place] [facility] [address] [id number], [place] [address] Oct, [facility] [address] [facility] [id number] [place] [address] May, [facility] [address] [facility] [id number] [place] [address] May, IMMUNIZATIONS No Known Immunizations SOCIAL HISTORY [...] Dialysis [facility] 2012 -Dr. Simon now [facility] Medical History Colonoscopy (polyps 2 ) [...]
--- OUTSIDE RECORDS SUMMARY | 2017-12-22 19:16 | XMS REPORT ---
Author Author BREANN FIGUEROA [facility] Address [address] [place] [address] Care Team Providers Care Digestion Operator Name Role Phone BREANN FIGUEROA Unavailable PROBLEMS Type Condition ICD9-CM Code SOT43-DN Code Onset Dates Condition Status SNOMED Code Problem Chronic pain syndrome G89.4 Active 761612402 Problem Type 2 diabetes mellitus with hyperglycemia E11.65 Active 799770421089331 Problem Primary insomnia F51.01 Active 3618202 Problem Bilateral lower extremity edema R60.0 Active 770704849 Problem Anemia in other chronic diseases classified elsewhere D63.8 Active 655550662 Problem Supplemental oxygen dependent Z99.81 Active 712414417461 Problem Right carpal tunnel syndrome G56.01 Active 269724144458435 Problem 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 Active 709788092452102 Problem Paresthesia of right upper extremity R20.2 Active 46996755 Problem Chronic kidney disease, stage 4 (severe) N18.4 Active 134260266 Problem 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 Active 536758304 Problem Psoriasis of scalp L40.9 Active 351618415 Problem Gastroesophageal reflux disease without esophagitis K21.9 Active 505007659 Problem Chronic obstructive pulmonary disease, unspecified COPD type J44.9 Active 19069462 Problem Type 2 diabetes mellitus with other diabetic kidney complication E11.29 Active 471300343 Problem Diabetic 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 Active 76158364 Problem History of DVT (deep vein thrombosis) Z86.718 Active 455036329 Problem USP 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 Active 972303658 Problem Oxygen desaturation during sleep G47.34 Active 377116906 Problem Essential hypertension I10 Active 07613107 Problem Depression, unspecified depression type F32.9 Active 37091577 Problem Sleep apnea in adult G47.33 Active 36079762 ALLERGIES Substance Reaction Event Type Date Status Sulfamethoxazole-Trimethoprim hives Drug Allergy Mar, Active Penicillin V Potassium anaphylaxis Drug Allergy Mar, Active plastic tape rash Non Drug Allergy Mar, Active ENCOUNTERS Encounter Location Date Diagnosis [facility] [facility] [id number] [place] [address] 22565- 2910 November, [place] [id number] [place] [address] 22778- 3685 Oct, Type 2 diabetes mellitus with other diabetic kidney complication E11.29 [facility] [facility] [id number] [place] [address] 18218- 2244 Oct, Primary insomnia F51.01 [facility] [id number] [place] [address] [id number] Oct, Bilateral lower extremity edema R60.0 [place] [id number] [place] [address] 72661- 0318 Oct, [place] [id number] [place] [address] 13779- 8741 Sep, Type 2 diabetes mellitus with other diabetic kidney complication E11.29 and Chronic obstructive pulmonary disease, unspecified COPD type J44.9 [place] [id number] [place] [address] 32574- 6602 15 Aug, 2017 Type 2 diabetes mellitus with other diabetic kidney complication E11.29 [facility] [id number] [place] [address] 64147- 2940 Aug, Gastroesophageal reflux disease without esophagitis K21.9 ; USP 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 ; Chronic pain syndrome G89.4 ; Essential hypertension I10 and Type 2 diabetes mellitus with other diabetic kidney complication E11.29 [facility] [address] [place] [address] 75707- 7050 08 Aug, 2017 Chronic pain syndrome G89.4 [facility] [facility] [id number] [place] [address] 90883- 7676 Aug, Type 2 diabetes mellitus with other diabetic kidney complication E11.29 [facility] [id number] [place] [address] 60042- 6344 Jul, Diabetic 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 [place] [address] [place] [address] 13776- 5735 Jul, Primary insomnia F51.01 [place] [address] [place] [address] 15329- 4662 Jul, [place] [id number] [place] [address] 42360- 9198 Jul, Type 2 diabetes mellitus with other diabetic kidney complication E11.29 and Chronic obstructive pulmonary disease, unspecified COPD type J44.9 [place] [id number] [place] [address] 69290- 0548 Jul, Type 2 diabetes mellitus with other diabetic kidney complication E11.29 [facility] [id number] [place] [address] 02848- 7350 Jun, Type 2 diabetes mellitus with other diabetic kidney complication E11.29 [facility] [id number] [place] [address] 96316- 1139 Jun, [place] [id number] [place] [address] 00073- 7826 Jun, Chronic obstructive pulmonary disease, unspecified COPD type J44.9 [place] [address] [place] [address] 83288- 6716 May, Type 2 diabetes mellitus with other diabetic kidney complication E11.29 [facility] [address] [place] [address] 09626- 5838 May, USP 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 and Essential hypertension I10 [place] [id number] [place] [address] 97001- 4450 May, Anemia in other chronic diseases classified elsewhere D63.8 ; Chronic obstructive pulmonary disease, unspecified COPD type J44.9 ; Oxygen desaturation during sleep G47.34 ; Sleep apnea in adult G47.33 and Supplemental oxygen dependent Z99.81 [place] [id number] [place] [address] 15020- 6741 May, Type 2 diabetes mellitus with other diabetic kidney complication E11.29 ; Essential hypertension I10 ; Chronic pain syndrome G89.4 ; BMI 40.0-44.9, adult Z68.41 ; Gastroesophageal reflux disease without esophagitis K21.9 ; USP 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 ; USP 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 ; Diabetic 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 ; Edema of both legs R60.0 and Supplemental oxygen dependent Z99.81 [place] [id number] [place] [address] 40417- 7210 May, [place] [address] 11783- 6151 May, Essential hypertension I10 and Gastroesophageal reflux disease without esophagitis K21.9 [place] [id number] [place] [address] 50770- 2944 May, [place] [address] 07371- 0289 May, Type 2 diabetes mellitus with other diabetic kidney complication E11.29 and USP 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 [facility] [id number] [place] [address] 57164- 1981 Apr, Chronic pain syndrome G89.4 and Essential hypertension I10 [place] [id number] [place] [address] 62324- 2422 Apr, Type 2 diabetes mellitus with other diabetic kidney complication E11.29 [facility] [id number] [place] [address] 03491- 6982 Apr, Type 2 diabetes mellitus with other diabetic kidney complication E11.29 [place] [id number] [place] [address] 38288- 2539 Apr, Essential hypertension I10 [place] [id number] [place] [address] 85626- 4820 Apr, Gastroesophageal reflux disease without esophagitis K21.9 [facility] [id number] [place] [address] 34109- 4472 05 Apr, 2017 Type 2 diabetes mellitus with other diabetic kidney complication E11.29 [facility] [id number] [place] [address] 81881- 7596 02 Apr, 2017 Type 2 diabetes mellitus with other diabetic kidney complication E11.29 and USP 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 [facility] [address] 95060- 4803 27 Mar, 2017 Encounter for immunization Z23 and Preoperative examination Z01.818 [place] [address] 97377- 9216 Mar, [place] [id number] [place] [address] 80470- 5810 Mar, Type 2 diabetes mellitus with other diabetic kidney complication E11.29 [place] [id number] [place] [address] 88133- 5901 Mar, Type 2 diabetes mellitus with other diabetic kidney complication E11.29 [place] [id number] [place] [address] 39838- 8594 06 Mar, 2017 Gastroesophageal reflux disease without esophagitis K21.9 [place] [id number] [place] [address] 50535- 254 Mar, Essential hypertension I10 [place] [address] 83329 2547 Feb, 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 [facility] [id number] [place] [address] 14195- 2541 Feb, Type 2 diabetes mellitus with other diabetic kidney complication E11.29 [facility] [id number] [place] [address] 56138- 5204 Feb, Type 2 diabetes mellitus with other diabetic kidney complication E11.29 [place] [address] [place] [address] 81723- 2885 Feb, Type 2 diabetes mellitus with other diabetic kidney complication E11.29 [facility] [address] [address]- 4616 Feb, Gastroesophageal reflux disease without esophagitis K21.9 [facility] [id number] [place] [address] 29792 2546 Feb, Type 2 diabetes mellitus with other diabetic kidney complication E11.29 [facility] [id number] [place] [address] 34027- 7291 Feb, USP 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 [facility] [id number] [place] [address] 53630- 5668 Jan, Type 2 diabetes mellitus with other diabetic kidney complication E11.29 [facility] [id number] [place] [address] 44997- 5823 Jan, Type 2 diabetes mellitus with other diabetic kidney complication E11.29 [facility] [id number] [place] [address] 72636- 0371 Jan, Chronic pain syndrome G89.4 [facility] [id number] [place] [address] 44666- 3846 Jan, [facility] [id number] [place] [address] 42343- 8645 Jan, [facility] [id number] [place] [address] 33056- 1552 Jan, [facility] [address] [place] [address] 71506- 2548 Jan, [facility] [address] [place] [address] 38707- 5657 Jan, Primary insomnia F51.01 ; Type 2 diabetes mellitus with other diabetic kidney complication E11.29 ; Chronic pain syndrome G89.4 and Essential hypertension I10 [facility] [address] [address]- 5038 21 Gerardo, 2017 Primary insomnia F51.01 [facility] [address] [place] [address]- 5928 Jan, Type 2 diabetes mellitus with other diabetic kidney complication E11.29 [facility] [address] [place] [address] 78505- 8768 Jan, [facility] [id number] [place] [address] 88901- 2979 Jan, Chronic obstructive pulmonary disease, unspecified COPD type J44.9 [facility] [id number] [place] [address] 22277- 3213 Jan, Essential hypertension I10 ; Type 2 diabetes mellitus with other diabetic kidney complication E11.29 ; Chronic obstructive pulmonary disease, unspecified COPD type J44.9 ; Chronic kidney disease, stage 4 (severe) N18.4 ; Right carpal tunnel syndrome G56.01 ; 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 ; USP (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 and Diabetic 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 [place] [id number] [place] [address] 52975- 6735 Jan, Gastroesophageal reflux disease without esophagitis K21.9 [place] [id number] [place] [address] 03802- 1745 Dec, [place] [address] [address]- 2903 Dec, [place] [address] [place] [address] 17595- 6317 Dec, USP 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 ; Chronic pain syndrome G89.4 and Essential hypertension I10 [place] [address] [place] [address] 06866- 4046 Dec, [place] [address] [place] [address] 54903- 1946 Dec, Type 2 diabetes mellitus with other diabetic kidney complication E11.29 [place] [address] [address]- 0091 Dec, [facility] [id number] [place] [address] 25797- 6406 Dec, Gastroesophageal reflux disease without esophagitis K21.9 [facility] [address] [place] [address] 31764- 7265 November, Type 2 diabetes mellitus with other diabetic kidney complication E11.29 [facility] [id number] [place] [address] 84652- 0594 November, [facility] [id number] [place] [address] 99060- 8578 November, Type 2 diabetes mellitus with other diabetic kidney complication E11.29 [facility] [id number] [place] [address] 81419- 4481 November, [facility] [id number] [place] [address] 10721- 4338 November, Type 2 diabetes mellitus with other diabetic kidney complication E11.29 [facility] [id number] [place] [address] 04043- 4481 November, [facility] [id number] [place] [address] 65867- 6141 Oct, Essential hypertension I10 [facility] [address] [place] [address] 37464- 4871 Oct, Psoriasis of scalp L40.9 [facility] [id number] [place] [address] 38111- 2042 Oct, Essential hypertension I10 and Chronic pain syndrome G89.4 [facility] [id number] [place] [address] 04230- 1312 Oct, [facility] [id number] [place] [address] 71719- 1534 Sep, Type 2 diabetes mellitus with other diabetic kidney complication E11.29 [facility] [id number] [place] [address] 67137- 1403 Sep, [place] [address] [place] [address] 25257- 0099 Sep, Type 2 diabetes mellitus with other diabetic kidney complication E11.29 [place] [address] [place] [address] 64728- 5683 Sep, Type 2 diabetes mellitus with other diabetic kidney complication E11.29 [place] [address] [place] [address] 67022- 1572 09 Sep, 2016 Type 2 diabetes mellitus with other diabetic kidney complication E11.29 ; Chronic kidney disease, stage 4 (severe) N18.4 ; Chronic obstructive pulmonary disease, unspecified COPD type J44.9 ; Iron deficiency anemia due to chronic blood loss D50.0 ; USP 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 ; Gastroesophageal reflux disease without esophagitis K21.9 ; Essential hypertension I10 ; Primary insomnia F51.01 ; Depression, unspecified depression type F32.9 ; Chronic pain syndrome G89.4 ; Wrist pain, right M25.531 ; Paresthesia of right upper extremity R20.2 and Psoriasis of scalp L40.9 [place] [address] [place] [address] 03278- 5160 Sep, [place] [address] [place] [address] 33132- 5629 24 Aug, 2016 Essential hypertension I10 [place] [id number] [place] [address] 68221- 8077 Aug, History of DVT (deep vein thrombosis) Z86.718 [place] [address] [place] [address] 96683- 6715 Aug, [place] [address] [place] [address] 62064- 3176 Jul, [place] [id number] [place] [address] 02532- 2840 Jul, [place] [address] [place] [address] 49914- 2445 Jul, USP 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 ; Chronic pain syndrome G89.4 and Chronic kidney disease, stage 4 (severe) N18.4 [place] [address] [place] [address] 94757- 9649 Jul, [facility] [address] [place] [address]- 6570 Jul, [facility] [id number] [place] [address] 96988- 1907 Jul, [place] [id number] [place] [address] 59952- 4739 Jul, [place] [address] [place] [address] 52965- 3562 Jul, [place] [address] [place] [address] 79563- 2207 Jul, Type 2 diabetes mellitus with other diabetic kidney complication E11.29 [place] [address] [place] [address] 81755- 3942 Jul, History of DVT (deep vein thrombosis) Z86.718 [place] [address], [place] [address]- 6338 Jun, [place] [address] [address]- 2955 Jun, History of DVT (deep vein thrombosis) Z86.718 [place] [address] [address]- 0887 15 Jun, 2016 Post traumatic stress disorder (PTSD) F43.10 [place] [address] [address]- 5707 07 Jun, 2016 Type 2 diabetes mellitus with other diabetic kidney complication E11.29 ; Diabetic 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 ; Iron deficiency anemia due to chronic blood loss D50.0 ; Chronic obstructive pulmonary disease, unspecified COPD type J44.9 ; USP 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 ; History [...] pain M79.641 and Right wrist pain M25.531 [facility] [address] 34673- 9641 28 May, 2016 [place] [address] 86453- 3934 23 May, 2016 [place] [address] 09169- 7194 May, [facility] [address] 04710- 7343 15 May, 2016 [facility] [address] 70068- 9407 11 May, 2016 Anemia in other chronic diseases classified elsewhere D63.8 [facility] [address] 97605- 8571 02 May, 2016 [facility] [address] 93126- 5800 10 Apr, 2016 [facility] [id number] [place] [address] 98435- 0081 27 Mar, 2016 Dermatofibroma D23.9 [facility] [address] 72542- 8685 20 Mar, 2016 [facility] [address] 00500- 9201 14 Mar, 2016 Chronic pain syndrome G89.4 [facility] [address] [place] [address]- 4618 Mar, [facility] [address], [place] [address]- 1032 Mar, [facility] [address], [place] [address]- 1545 Mar, [facility] [address], [place] [address]- 8756 Feb, [facility] [address] [place] [address]- 9312 Feb, [facility] [address] [place] [address] 41729- 0706 Feb, [facility] [address], [place] [address]- 5471 Feb, [facility] [address], [place] [address]- 9869 Feb, [facility] [address], [place] [address]- 1581 Feb, [facility] [address], [place] [address]- 1442 Feb, Type 2 diabetes mellitus with other diabetic kidney complication E11.29 ; Diabetic 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 ; Iron deficiency anemia due to chronic blood loss D50.0 ; Chronic obstructive pulmonary disease, unspecified COPD type J44.9 ; 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 ; History of DVT (deep vein thrombosis) Z86.718 ; Chronic pain syndrome G89.4 ; Oxygen desaturation during sleep G47.34 ; Sleep apnea in adult G47.33 ; Gastroesophageal reflux disease without esophagitis K21.9 ; Essential hypertension I10 ; Primary insomnia F51.01 ; Depression, unspecified depression type F32.9 and Renal failure, chronic, stage 4 (severe) N18.4 [facility] [id number] [address]- 6992 Feb, Skin tags, multiple acquired L91.8 [facility] [address], [place] [address]- 5805 Jan, [facility] [address] [place] [address] [id number] Jan, Dental examination Z01.20 [facility] [address], [place] [address]- 6515 Jan, [facility] [id number] [place] [address] 78664- 8843 Jan, Type 2 diabetes mellitus with other diabetic kidney complication E11.29 ; Diabetic 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 ; Iron deficiency anemia due to chronic blood loss D50.0 ; Chronic obstructive pulmonary disease, unspecified COPD type J44.9 ; USP 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 ; History of DVT (deep vein thrombosis) Z86.718 ; Chronic pain syndrome G89.4 ; Oxygen desaturation during sleep G47.34 ; Sleep apnea in adult G47.33 ; Gastroesophageal reflux disease without esophagitis K21.9 ; Essential hypertension I10 ; Primary insomnia F51.01 ; Depression, unspecified depression type F32.9 ; Skin lesion L98.9 and Renal failure, chronic, stage 4 (severe) N18.4 [facility] [address] [place] [address] 98479- 9981 Dec, Diabetes type 2, uncontrolled E11.65 [facility] [address] [place] [address] 55130- 6251 Dec, [place] [address] [place] [address] 87760- 5199 Dec, Type 2 diabetes mellitus with other diabetic kidney complication E11.29 ; Diabetic 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 ; Iron deficiency anemia due to chronic blood loss D50.0 ; Chronic obstructive pulmonary disease, unspecified COPD type J44.9 ; 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 ; History of DVT (deep vein thrombosis) Z86.718 ; Chronic pain syndrome G89.4 ; Oxygen desaturation during sleep G47.34 ; Sleep apnea in adult G47.33 ; Gastroesophageal reflux disease without esophagitis K21.9 ; Essential hypertension I10 ; Primary insomnia F51.01 and Depression, unspecified depression type F32.9 [facility] [address] [id number] [place] [address] [id number] Dec, Dental caries K02.9 [facility] [address] [id number] [place] [address] [id number] Dec, [facility] [address] [place] [address] [id number] Dec, Dental examination Z01.20 [facility] [address] [place] [address] [id number] November, Dental examination Z01.20 and Dental caries K02.9 [facility] [address] [id number] [place] [address] [id number] Oct, [facility] [address] [id number] [place] [address] [id number] Oct, [facility] [address] [place] [address] [id number] Sep, [facility] [address] [id number] [place] [address] [id number] Sep, [facility] [address] [place] [address] [id number] Sep, [facility] [address] [id number] [place] [address] [id number] Sep, Other chronic pain 338.29 [facility] [address] [place] [address] [id number] Aug, Diabetes type 2, uncontrolled E11.65 and Morbid obesity due to excess calories E66.01 [facility] [address] [id number] [place] [address] [id number] Aug, Hair loss L65.9 [facility] [address] [id number] [place] [address] [id number] Aug, [facility] [address] [id number] [place] [address] [id number] Jul, [facility] [address] [place] [address] [id number] Jul, [id number] [id number] Jun, [address] [id number] [place] [address] [id number] Jun, Hair loss L65.9 and Disorder of the skin and subcutaneous tissue, unspecified L98.9 [id number] [place] [address] [id number] May, Type 2 diabetes mellitus with other diabetic kidney complication E11.29 ; Type 2 diabetes mellitus with hyperglycemia E11.65 ; Morbid obesity due to excess calories E66.01 and Essential hypertension I10 [address] [place] [address] [id number] May, Diabetes type 2, uncontrolled E11.65 ; Encounter for immunization Z23 and Morbid obesity due to excess calories E66.[id number] [place] [address] [id number] May, [facility] [address] [id number], [place] [address] Apr, [address] [place] [address] [id number] Apr, Hyperglycemia R73.9 [address] [place] [address] [id number] Apr, [address] [place] [address] [id number] Apr, Depression F32.9 ; Encounter for immunization Z23 ; Hyperglycemia R73.9 and Anemia in other chronic diseases classified elsewhere D63.8 [facility] [address] [facility] [id number] [id number] Mar, [address] [place] [address] [id number] Feb, Positive occult stool blood test 792.1 [address] [place] [address] [id number] Feb, Depression 311 ; Other chronic pain 338.29 and Diabetes with renal manifestations, type II or unspecified type, not stated as uncontrolled 250.40 [facility] [id number] [place] [address]- 5171 Feb, Occult blood in stools 792.[address] [id number] Feb, Anemia 285.9 ; Occult blood positive stool 792.1 ; Unspecified essential hypertension 401.9 and Other chronic pain 338.[address] [id number] Feb, [address] [id number] Feb, Anemia 285.[address] [id number] Feb, [address] [id number] Feb, [address] [id number] Feb, Diabetes with renal manifestations, type II or unspecified type, not stated as uncontrolled 250.40 ; Other chronic pain 338.29 ; Unspecified essential hypertension 401.9 ; Anemia 285.9 and Depression [id number] [place] [address] [id number] Jan, [address] [id number] Jan, Anemia 285.9 and Follow up V67.9 [id number] [place] [address] [id number] Jan, [id number] [place] [address] [id number] Jan, [id number] [place] [address] [id number] Jan, [address] [id number] Dec, [facility] [id number] [place] [address] [id number] Oct, [facility] [id number] [place] [address] 310[address]- 2546 Oct, [facility] [place] [facility] [address] [facility] [id number], [place] [address]- 25[address] Sep, [facility] [place] [address] [id number] [id number] Sep, [facility] [place] [facility] [address]00565[address], [place] [address]- 25[address] Sep, [facility] [place] [address] [id number], [place] [id number] Aug, [facility] [place] [facility] [address] [id number], [place] [address]- 2546 Aug, [facility] [place] [facility] [address]00565100[place], [place] [address]- 2546 Aug, [facility] [place] [id number], [place] [id number] Aug, [facility] [place] [facility] [address]00565100[place], [place] [address]- 2546 Aug, [facility] [place] [facility] [address] [id number], [place] [address]- 5636 Aug, [facility] [place] [address] [id number], [place] [id number] Aug, [facility] [place] [facility] [address] [id number], [place] [address]- 2546 Aug, [facility] [place] [id number], [place] [id number] Jul, [facility] [place] [facility] [address] [id number], [place] [address]- 4196 Jul, [facility] [place] [facility] [address]00565100[place], [place] [address]- 2546 Jul, [facility] [place] [address] [id number], [place] [id number] Jul, [facility] [place] [facility] [address] [id number], [place] [address]- 8746 Jul, [facility] [place] [address] [id number] [place] [id number] Jul, [facility] [place] [facility] [address] [facility] [id number], [place] [address]- 9902 Jul, [facility] [place] [address] [facility] [id number][place] [id number] Jun, [facility] [place] [address] [facility] [id number] [place] [id number] Jun, [facility] [place] [facility] [address] [facility] [id number], [place] [address]- 1888 Jun, [facility] [place] [facility] [address] [facility] [id number], [place] [address]- 8722 Jun, [facility] [place] [address] [facility] [id number], [place] [id number] Jun, [facility] [place] [facility] [address]00565100[place], [place] [address]- 1736 Jun, [facility] [place] [address] [facility] [id number], [place] [id number] May, [facility] [place] [facility] [address] [facility] [id number], [place] [address]- 3544 May, [facility] [place] [facility] [address] [id number], [place] [address]- 8133 May, [facility] [place] [address] [facility] [id number], [place] [id number] Apr, [facility] [place] [facility] [address] [facility] [id number], [place] [address]- 9382 Apr, [facility] [place] [address] [facility] [id number], [place] [id number] Apr, [facility] [place] [address] [facility] [id number], [place] [id number] Apr, [facility] [place] [facility] [address] [facility] [id number], [place] [address]- 9525 Apr, [facility] [place] [facility] [address] [facility] [id number], [place] 787[place]- 2692 Apr, [facility] [place] [address] [id number] [place] [id number] Mar, [facility] [place] [facility] [address] [id number] [place] [address]- 0137 Mar, [facility] [place] [address] [id number] [place] [id number] Mar, [facility] [place] [facility] [address] [facility] [id number] [place] [address]- 2465 Mar, [facility] [place] [address] [id number] [place] [id number] Mar, [facility] [place] [facility] [address] [facility] [id number] [place] [address]- 1337 Mar, [facility] [place] [address] [id number] [place] [id number] Mar, [facility] [place] [facility] [id number] [place] [address]- 8579 Mar, [facility] [place] [address] [id number] [place] [id number] Mar, [facility] [place] [facility] [address] [facility] [id number], [place] [address]- 0008 Mar, [facility] [place] [address] [id number] [place] [id number] Feb, [facility] [place] [facility] [address] [facility] [id number], [place] [address]- 3738 Feb, [facility] [place] [address] [id number] [place] [id number] Jan, [facility] [place] [facility] [address] [facility] [id number] [place] [address]- 0974 Jan, [facility] [place] [address] [id number] [place] [id number] Jan, [facility] [place] [facility] [address] [facility] [id number] [place] [address]- 5223 Jan, [facility] [place] [address] [id number], [place] [id number] Jan, [facility] [place] [facility] [address] [id number] [place] [address]- 0613 Jan, [facility] [place] [facility] [address] [id number] [place] [address]- 2546 Dec, [facility] [place] [facility] [address] [facility] [id number] [place] [address]- 2546 Dec, [facility] [place] [address] [facility] [id number] [place] [id number] November, [facility] [place] [facility] [address] [id number] [place] [address] 2546 November, [facility] [place] [address] [facility] [id number] [place] [id number] November, [facility] [place] [facility] [address] [facility] [id number] [place] [address] 2546 November, [facility] [place] [address] [facility] [id number] [place] [id number] Oct, [facility] [place] [facility] [address] [facility] [id number] [place] [address]- 8977 Oct, [facility] [place] [facility] [address] [facility] [id number] [place] [address]- 0086 Oct, [facility] [place] [facility] [address] [facility] [id number] [place] [address]- 7106 Oct, [facility] [place] [facility] [address] [facility] [id number] [place] [address]- 2546 Oct, [facility] [place] [facility] [address] [id number] [place] [address]- 3656 Oct, [facility] [place] [address] [id number] [place] [id number] Sep, [facility] [place] [address] [facility] [id number] [place] [id number] Sep, [facility] [place] [facility] [address] [facility] [id number] [place] [address]- 2546 Sep, [facility] [place] [facility] [address] [facility] [id number], [place] [address]- 1305 Sep, [facility] [place] [address] [facility] [id number], [place] [id number] Sep, [facility] [place] [facility] [address] [facility] [id number], [place] [address]- 7289 Sep, [facility] [place] [facility] [address]00565[address], [place] [address]- 4634 Aug, [facility] [place] [facility] [address] [id number], [place] [address]- 0050 Aug, [facility] [place] [address] [facility] [id number], [place] [id number] Aug, [facility] [place] [address] [id number], [place] [id number] Aug, [facility] [place] [facility] [address]00565100[place], [place] [address]- 4096 Aug, [facility] [place] [id number], [place] [id number] Aug, [facility] [place] [facility] [address]00565100[place], [place] [address]- 7614 Aug, [facility] [place] [id number], [place] [id number] Aug, [facility] [place] [facility] [address] [id number], [place] [address]- 0163 Aug, [facility] [place] [address] [id number], [place] [id number] Aug, [facility] [place] [facility] [address] [id number], [place] [address]- 9076 Aug, [facility] [place] [address] [facility] [id number], [place] 905260475 Aug, [facility] [place] [facility] [address] [id number], [place] 00335659- 3845 Aug, [facility] [place] [facility] [address]00565100[place], [place] [address]- 4916 Jul, [facility] [place] [address] [facility] [id number], [place] [id number] Jun, [facility] [place] [facility] [address] [id number], [place] [address]- 5956 Jun, [facility] [place] [facility] [address] [facility] [id number] [place] [address]- 4766 Jun, [facility] [place] [facility] [address] [id number], [place] [address]- 8656 Jun, [facility] [place] [address] [facility] [id number], [place] [id number] Jun, [facility] [place] [facility] [address] [facility] [id number], [place] [address]- 1436 Jun, [facility] [place] [facility] [address] [facility] [id number], [place] [address]- 7786 Jun, [facility] [place] [address] [id number], [place] 860221332 Jun, [facility] [place] [facility] [address] [facility] [id number], [place] [address]- 2526 Jun, [facility] [place] [facility] [address] [facility] [id number], [place] [address]- 1476 May, [facility] [place] [address] [id number], [place] [id number] May, [facility] [place] [facility] [address] [facility] [id number], [place] [address]- 5666 May, [facility] [place] [facility] [address] [facility] [id number], [place] [address]- 1406 May, [facility] [place] [facility] [address] [facility] [id number], [place] [address]- 2936 May, [facility] [place] [facility] [address] [facility] [id number], [place] [address]- 2546 08 May, 2013 [facility] [place] [address] [facility] [id number], [place] [id number] May, [facility] [place] [facility] [address] [id number], [place] [address]- 4386 May, [facility] [place] [address] [facility] [id number], [place] [id number] May, [facility] [place] [facility] [address] [id number], [place] [address]- 2546 May, [facility] [place] [address] [facility] [id number], [place] 471563793 Apr, [facility] [place] [facility] [address] [id number], [place] [address]- 9062 Apr, [facility] [place] [facility] [address] [facility] [id number], [place] [address]- 5850 Apr, [facility] [place] [address] [facility] [id number], [place] [id number] Apr, [facility] [place] [facility] [address] [facility] [id number], [place] [address]- 3030 Apr, [facility] [place] [facility] [address] [facility] [id number], [place] [address]- 4261 Apr, [facility] [place] [address] [facility] [id number], [place] 249042862 Apr, [facility] [place] [facility] [address] [facility] [id number], [place] [address]- 5730 Apr, [facility] [place] [facility] [address] [facility] [id number], [place] [address]- 5716 Apr, [facility] [place] [facility] [address] [facility] [id number], [place] [address]- 6913 Apr, [facility] [place] [address] [facility] [id number], [place] 012263830 Apr, [facility] [place] [facility] [address] [facility] [id number], [place] [address]- 7746 Apr, [facility] [place] [address] [facility] [id number], [place] 490858339 Apr, [facility] [place] [facility] [address] [facility] [id number], [place] [address]- 8657 Apr, [facility] [place] [address] [id number], [place] 396897572 Apr, [facility] [place] [facility] [address] [facility] [id number], [place] 684618- 9087 Apr, [facility] [address] [facility] [id number], [place] [address]- 6919 Apr, [facility] [place] [facility] [address] [facility] [id number], [place] [address]- 7327 Apr, [facility] [place] [address] [facility] [id number], [place] 114195759 Apr, [facility] [address] [facility] [id number], [place] [address]- 7198 Mar, [facility] [address]00565100[place], [place] [address]- 6273 Mar, [facility] [place] [address] [id number], [place] 872393319 Mar, [facility] [place] [address] [id number], [place] 370172721 Mar, [facility] [place] [address] [id number], [place] 071144959 Mar, [facility] [place] [address] [id number], [place] [id number] Feb, [facility] [place] [address] [id number], [place] 754592185 Feb, [facility] [place] [address] [id number], [place] 152840510 Feb, [facility] [place] [facility] [address] [facility] [id number], [place] [address]- 2543 Feb, [facility] [place] [address] [id number], [place] 928025729 Feb, [facility] [place] [address] [id number], [place] 802832187 Feb, [facility] [place] [address] [id number], [place] 507350696 Feb, [facility] [place] [address] [id number] [place] 211475382 Feb, [facility] [place] [address] [id number] [place] 854781074 Feb, [facility] [place] [address] [id number] [place] 985086777 Jan, [facility] [place] [address] [id number] [place] 940284969 Jan, [facility] [place] [address] [id number] [place] 724918809 Jan, [facility] [place] [address] [id number] [place] 166019910 Jan, [facility] [place] [address] [id number] [place] 197791053 Jan, [facility] [address] [facility] [id number] [place] [address]- 2546 Jan, [facility] [place] [address] [id number] [place] 508176789 Jan, [facility] [place] [address] [id number] [place] 197426681 Jan, [facility] [place] [address] [id number] [place] [id number] Dec, [facility] [place] [address] [id number] [place] 788562379 November, [facility] [place] [address] [id number] [place] [id number] November, [facility] [place] [address] [id number] [place] [id number] November, [facility] [place] [address] [id number] [place] 961831175 November, [facility] [place] [address] [id number] [place] 601878556 November, [facility] [place] [address] [id number] [place] 153246324 November, [facility] [place] [address] [id number] [place] 193950078 Jul, [facility] [place] [address] [id number] [place] 950838246 Jul, [facility] [place] [address] [id number] [place] 487170055 Jul, [facility] [place] [address] [id number] [place] 795956460 Jun, [facility] [address] [id number], [place] [address]- 7157 Jun, [facility] [place] [address] [id number], [place] 030474281 May, [facility] [place] [facility] [address] [id number], [place] [address]- 1713 May, [facility] [place] [address] [id number], [place] [id number] May, [facility] [address]00565100[place], [place] [address]- 1534 May, [facility] [place] [address] [id number][place] [id number] May, [facility] [place] [facility] [address] [facility] [id number], [place] [address] May, [facility] [place] [address] [facility] [id number][place] [id number] Apr, [facility] [place] [facility] [address] [facility] [id number], [place] [address] Apr, [facility] [place] [facility] [address] [facility] [id number], [place] [address] 18 Apr, 2012 [facility] [place] [address] [id number][place] [id number] Apr, [facility] [place] [address] [id number][place] [id number] Apr, [facility] [place] [facility] [address] [facility] [id number], [place] [address] Apr, [facility] [place] [facility] [address] [facility] [id number], [place] [address] Apr, [facility] [place] [address] [id number] [place] [id number] Apr, [facility] [address] [facility] [id number][place] [id number] Apr, [facility] [place] [address] [id number] [place] [id number] Apr, [facility] [place] [address] [id number] [place] [id number] Apr, [facility] [place] [address] [id number] [place] [id number] Mar, [facility] [place] [address] [id number] [place] [id number] Feb, [facility] [place] [address] [id number] [place] [id number] Jan, [facility] [place] [address] [id number] [place] [id number] Dec, [facility] [place] [address] [id number] [place] [id number] Dec, [facility] [place] [address] [id number] [place] [id number] Dec, [facility] [place] [address] [id number] [place] [id number] Dec, [facility] [place] [address] [id number] [place] [id number] Dec, [facility] [place] [address] [id number] [place] [id number] November, [facility] [place] [address] [id number] [place] [id number] November, [facility] [place] [address] [id number] [place] [id number] November, [facility] [address] [facility] [id number], [place] [address] November, [facility] [place] [address] [id number] [place] [id number] November, [facility] [place] [address] [id number] [place] [id number] November, [facility] [place] [address] [id number] [place] [id number] 30 Oct, 2011 [facility] [place] [address] [id number] [place] [id number] Oct, [facility] [place] [address] [id number] [place] [id number] Oct, [facility] [place] [address] [id number] [place] [id number] Oct, [facility] [place] [address] [id number] [place] [id number] Oct, [facility] [place] [address] [id number] [place] [id number] Oct, [facility] [place] [address] [id number] [place] [id number] Sep, [facility] [place] [address] [id number] [place] [id number] Aug, [facility] [place] [address] [id number] [place] [id number] Aug, [facility] [place] [address] [id number] [place] [id number] Jul, [facility] [place] [facility] [address]65[address], [place] [address] Jun, [facility] [place] [facility] [address]65[address], [place] [address] Jun, [facility] [place] [facility] [address]65[address], [place] [address] Jun, [facility] [place] [facility] [address]65[address], [place] [address] Jun, [facility] [place] [facility] [address]65[address], [place] [address] May, [facility] [place] [facility] [address]65[address], [place] [address] May, [facility] [place] [facility] [address]65[address], [place] [address] Apr, [facility] [place] [facility] [id number] [place] [address] 17 Apr, 2011 [facility] [address] [id number] [place] [address] 10 Apr, 2011 [facility] [address] [id number] [place] [address] Feb, [facility] [address] [id number] [place] [address] 15 Aug, 2010 [facility] [address] [id number] [place] [address] Jul, [facility] [id number] [place] [address], [place] [address] 30 Jun, 2010 [facility] [address] [id number] [place] [address] May, [facility] [address] [id number] [place] [address] May, [facility] [facility] [address] [id number] [place] [address] May, [facility] [address] [id number] [place] [address] May, [facility] [address] [facility] [id number] [place] [address] May, [facility] [address] [id number] [place] [address] 16 Aug, 2009 [facility] [address] [id number] [place] [address] Jun, [facility] [place] [facility] [address] [id number] [place] [address] Jun, [facility] [place] [facility] [address] [id number] [place] [address] Jun, [facility] [address] [id number] [place] [address] May, [facility] [id number] [address] Apr, [facility] [id number] [address] Apr, [facility] [id number], [place] [address] Apr, [facility] [id number], [place] [address] Jan, [facility] [id number], [place] [address] Oct, [facility] [id number] [place] [address] May, [facility] [id number], [place] [address] May, IMMUNIZATIONS Vaccine Route Administration Date Status FLUARIX QUAD (3 AND UP) 2016 IM Intramuscular Mar 31, 2017 Administered SOCIAL HISTORY Never Assessed REASON FOR VISIT Surgical clearance---ANGEennettRN, right wrist surgery by Dr. Navarro PLAN OF CARE Activity Details Follow Up prn Reason: VITAL SIGNS Height 64 in 2017-03-31 Temperature 98.5 degrees Fahrenheit 2017-03-31 Heart Rate 90 bpm 2017-03-31 Respiratory Rate 24 2017-03-31 Oximetry w/ oxygen:98 % 2017-03-31 Blood pressure systolic 168 mmHg 2017-03-31 Blood pressure diastolic 84 mmHg 2017-03-31 MEDICATIONS Medication Instructions Dosage Frequency Start Date End Date Duration Status Insulin Syringe-Needle U-100 29G X 1/2 subcutaneously 5 times per day as directed Active Savella 100 mg Orally Twice a day 1 tablet 12h Active Oxygen 2 L/NC .... daily Active Advair Diskus 100 mcg-50 mcg inhalation bid, rinse mouth afterwards 1 puffs Active Melatonin 10 mg 2 Tablet by Oral route 1 time per dayat bedtime Active Gabapentin 600 MG Orally Three times a day take 1 tablet 8h Active BD Pen Needle Lovely U/F 32G X 4 MM USE DIRECTED THREE (3) TIMES DAILY. Active Biotin 1000 MCG Orally Once a day 1 tablet 24h Active Tramadol HCl 50 mg Orally every 6 hrs, may take up to 3 times daily 1 tablet as needed for pain Active Cozaar 50 mg Orally Once a day 1 tablet 24h Active Carafate 1 GM Orally Twice a day 1 tablet on an empty stomach 12h Active Albuterol Sulfate 90 mcg/actuation inhalation every 4-6 hours as needed 1-2 puffs Active Fish Oil Concentrate 1000 MG Orally Twice a day. 2 in AM, 1 in PM 1 capsule Apr, Active Tresiba FlexTouch 200 UNIT/ML ICD10- E11.29 daily 105 units 24h Jul, Active Victoza 18 MG/3ML INJECT 1.8 MG SUBCUTANEOUSLY ONCE DAILY... Active Trazodone HCl 150 MG Orally Once a day at bedtime as needed 1 tablet Active Torsemide 100 mg Orally Once a day 1/2 tablet 24h 30 Active Lipitor 40 mg Orally Once a day 1 tablet 24h Active NovoLog Flexpen 100 UNIT/ML ICD10- E11.29 3 times a day with meals 50 Jul, Active Verapamil HCl ER 240 MG Orally Once a day in the morning with food- must keep appt for further refills 1 tablet Active BD Pen BD PEN NEEDLE LOVELY subcut 3 times a day as directed 8h Active Protonix 40 mg Orally Once a day- appt needed for further refills 1 tablet Active Test strips ... True Test Active Multivitamin Orally Once a day 1 tablet 24h Dec, Active Eliquis 5 mg Orally 2 times a day as directed 12h Aug, 30 days Active Glucometer ... as directed Active Seroquel 50 mg Orally Once a day at bedtime 1 tablet 30 days Active MiraLax 17 gm/dose Orally PRN 17 grams mixed in 8 oz of water or juice Active BD Insulin Syringe 31G X 5/16 subcutaneously with insulin as directed Jan, Active RESULTS No Results PROCEDURES Procedure Date Ordered Result Body Site MEASURE BLOOD OXYGEN LEVEL Mar 31, 2017 FLUARIX QUAD (3 & UP)-[id number] 31, 2017 SINGLE IMMUNIZATION ADMIN Mar 31, 2017 INSTRUCTIONS MEDICATIONS ADMINISTERED No Known Medications MEDICAL [...] Dialysis [facility] Reveles 2012 -Dr. Simon now [facility] Medical History Colonoscopy (polyps 2 ) [...]
--- OUTSIDE RECORDS SUMMARY | 2017-12-22 19:17 | XMS REPORT ---
Author Author CHELSY VILLAFANA Organization [facility] Address [address] [place] [address] Care Team Providers Care Flatware Maker Name Role Phone CHELSY VILLAFANA Unavailable PROBLEMS Type Condition ICD9-CM Code TSA66-[place] Code Onset Dates Condition Status SNOMED Code Problem Chronic pain syndrome G89.4 Active 155164457 Problem Type 2 diabetes mellitus with hyperglycemia E11.65 Active 016551553753893 Problem Primary insomnia F51.01 Active 9864931 Problem Bilateral lower extremity edema R60.0 Active 979443176 Problem Anemia in other chronic diseases classified elsewhere D63.8 Active 864441329 Problem Supplemental oxygen dependent Z99.81 Active 191346187124 Problem Right carpal tunnel syndrome G56.01 Active 034360928136629 Problem 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 Active 128543411735556 Problem Paresthesia of right upper extremity R20.2 Active 67457285 Problem Chronic kidney disease, stage 4 (severe) N18.4 Active 762714047 Problem oysterman 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 Active 609286547 Problem Psoriasis of scalp L40.9 Active 925090357 Problem Gastroesophageal reflux disease without esophagitis K21.9 Active 206194088 Problem Chronic obstructive pulmonary disease, unspecified COPD type J44.9 Active 80811694 Problem Type 2 diabetes mellitus with other diabetic kidney complication E11.29 Active 839528723 Problem Diabetic 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 Active 42368404 Problem History of DVT (deep vein thrombosis) Z86.718 Active 517722680 Problem jail 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 Active 085483472 Problem Oxygen desaturation during sleep G47.34 Active 203735631 Problem Essential hypertension I10 Active 41440301 Problem Depression, unspecified depression type F32.9 Active 85828259 Problem Sleep apnea in adult G47.33 Active 50626287 ALLERGIES No Information ENCOUNTERS Encounter Location Date Diagnosis [facility] [id number] [id number] Dec, [facility] [address] [address] Dec, Essential hypertension I10 [facility] [address] [address] 35[address] November, Type 2 diabetes mellitus with other diabetic kidney complication E11.29 [facility] [id number] [address] November, Chronic pain syndrome G89.4 [facility] [address] [address] 2211 November, [facility] [address] [place] [address] 37774- 0660 November, [facility] [id number] [place] [address] 85204- 5612 November, [facility] [id number] [place] [address] 24894- 7349 Oct, Type 2 diabetes mellitus with other diabetic kidney complication E11.29 [facility] [address] [address] Oct, Primary insomnia F51.01 [facility] [id number] [id number] Oct, Bilateral lower extremity edema R60.0 [facility] [address] [address] 7[address] Oct, [facility] [address] [address] 5670 Sep, Type 2 diabetes mellitus with other diabetic kidney complication E11.29 and Chronic obstructive pulmonary disease, unspecified COPD type J44.9 [facility] [address] [address] 2270 Aug, Type 2 diabetes mellitus with other diabetic kidney complication E11.29 [facility] [id number] [address] 1556 12 Aug, 2017 Gastroesophageal reflux disease without esophagitis K21.9 ; oysterman 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 ; Chronic pain syndrome G89.4 ; Essential hypertension I10 and Type 2 diabetes mellitus with other diabetic kidney complication E11.29 [facility] [address] [place] [address] 93984- 8611 08 Aug, 2017 Chronic pain syndrome G89.4 [facility] [id number] [place] [address] 72363- 8091 Aug, Type 2 diabetes mellitus with other diabetic kidney complication E11.29 [place] [id number] [place] [address] 12495- 0576 Jul, Diabetic 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 [facility] [id number] [place] [address] 06663- 5269 Jul, Primary insomnia F51.01 [facility] [id number] [place] [address] 65342- 2818 Jul, [facility] [id number] [place] [address] 25921- 7262 Jul, Type 2 diabetes mellitus with other diabetic kidney complication E11.29 and Chronic obstructive pulmonary disease, unspecified COPD type J44.9 [facility] [address] [place] [address] 36291- 1182 Jul, Type 2 diabetes mellitus with other diabetic kidney complication E11.29 [facility] [id number] [place] [address] 78663- 6913 Jun, Type 2 diabetes mellitus with other diabetic kidney complication E11.29 [facility] [id number] [place] [address] 52805- 6396 Jun, [facility] [address] [place] [address] 52283- 1117 Jun, Chronic obstructive pulmonary disease, unspecified COPD type J44.9 [facility] [place] [id number] [place] [address] 29018- 0072 May, Type 2 diabetes mellitus with other diabetic kidney complication E11.29 [place] [id number] [place] [address] 35915- 1614 May, oysterman 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 and Essential hypertension I10 [address] [address]- [address] May, Anemia in other chronic diseases classified elsewhere D63.8 ; Chronic obstructive pulmonary disease, unspecified COPD type J44.9 ; Oxygen desaturation during sleep G47.34 ; Sleep apnea in adult G47.33 and Supplemental oxygen dependent Z99.[address] 61748- 7209 May, Type 2 diabetes mellitus with other diabetic kidney complication E11.29 ; Essential hypertension I10 ; Chronic pain syndrome G89.4 ; BMI 40.0-44.9, adult Z68.41 ; Gastroesophageal reflux disease without esophagitis K21.9 ; oysterman 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 ; jail 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 ; Diabetic 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 ; Edema of both legs R60.0 and Supplemental oxygen dependent Z99.81 [place] [id number] [place] [address] 16424- 9112 May, [place] [address] [place] [address] 11368- 4517 May, Essential hypertension I10 and Gastroesophageal reflux disease without esophagitis K21.9 [place] [id number] [place] [address] 46793- 1317 May, [place] [address] [place] [address] 20499- 7808 May, Type 2 diabetes mellitus with other diabetic kidney complication E11.29 and jail 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 [place] [id number] [place] [address] 78965- 2986 Apr, Chronic pain syndrome G89.4 and Essential hypertension I10 [facility] [id number] [place] [address] 25516- 1414 Apr, Type 2 diabetes mellitus with other diabetic kidney complication E11.29 [facility] [id number] [place] [address] 99860- 7191 Apr, Type 2 diabetes mellitus with other diabetic kidney complication E11.29 [place] [id number] [place] [address] 32663- 3875 Apr, Essential hypertension I10 [place] [facility] [id number] [place] [address] 54562- 3154 Apr, Gastroesophageal reflux disease without esophagitis K21.9 [place] [facility] [id number] [place] [address] 94191- 5155 Apr, Type 2 diabetes mellitus with other diabetic kidney complication E11.29 [place] [id number] [place] [address] 72422- 5795 Apr, Type 2 diabetes mellitus with other diabetic kidney complication E11.29 and oysterman 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 [place] [id number] [place] [address] 07068- 5860 Mar, Encounter for immunization Z23 and Preoperative examination Z01.818 [place] [id number] [place] [address] 59964- 3191 Mar, [facility] [id number] [place] [address] 45038- 3500 Mar, Type 2 diabetes mellitus with other diabetic kidney complication E11.29 [place] [id number] [place] [address] 93230- 4480 Mar, Type 2 diabetes mellitus with other diabetic kidney complication E11.29 [place] [address] [place] [address] 84582- 4486 Mar, Gastroesophageal reflux disease without esophagitis K21.9 [facility] [id number] [place] [address] 68542- 6694 Mar, Essential hypertension I10 [facility] [address] [place] [address] 66948- 7054 Feb, oysterman 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 [facility] [address] [place] [address] 33480- 8912 Feb, Type 2 diabetes mellitus with other diabetic kidney complication E11.29 [facility] [id number] [place] [address] 55162- 7290 Feb, Type 2 diabetes mellitus with other diabetic kidney complication E11.29 [facility] [id number] [place] [address] 25706- 1070 Feb, Type 2 diabetes mellitus with other diabetic kidney complication E11.29 [facility] [id number] [place] [address] 39878- 7212 Feb, Gastroesophageal reflux disease without esophagitis K21.9 [facility] [id number] [place] [address] 13238- 7483 Feb, Type 2 diabetes mellitus with other diabetic kidney complication E11.29 [facility] [id number] [place] [address] 34500- 3509 Feb, oysterman 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 [facility] [address] [address]- 4935 Jan, Type 2 diabetes mellitus with other diabetic kidney complication E11.29 [facility] [address] [address]- 1403 Jan, Type 2 diabetes mellitus with other diabetic kidney complication E11.29 [facility] [address] [place] [address] 47730- 5670 Jan, Chronic pain syndrome G89.4 [facility] [address] [address]- 7760 Jan, [facility] [id number] [place] [address] 53122- 9473 Jan, [facility] [address] [address]- 9497 Jan, [facility] [address] [address]- 7221 Jan, [facility] [address] [address]- 7918 Jan, Primary insomnia F51.01 ; Type 2 diabetes mellitus with other diabetic kidney complication E11.29 ; Chronic pain syndrome G89.4 and Essential hypertension I10 [facility] [address] [address]- 8377 Jan, Primary insomnia F51.01 [facility] [address] [address]- 9836 Jan, Type 2 diabetes mellitus with other diabetic kidney complication E11.29 [facility] [address] [address]- 1612 Jan, [facility] [address] [address]- 2475 Jan, Chronic obstructive pulmonary disease, unspecified COPD type J44.9 [facility] [address] [address]- 0395 Jan, Essential hypertension I10 ; Type 2 diabetes mellitus with other diabetic kidney complication E11.29 ; Chronic obstructive pulmonary disease, unspecified COPD type J44.9 ; Chronic kidney disease, stage 4 (severe) N18.4 ; Right carpal tunnel syndrome G56.01 ; 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 ; oysterman (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 and Diabetic 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 [facility] [address] [address]- 0512 Jan, Gastroesophageal reflux disease without esophagitis K21.9 [facility] [address] [address]- 5946 Dec, [facility] [address] [address]- 7668 Dec, [facility] [id number] [place] [address] 23231- 9692 Dec, jail 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 ; Chronic pain syndrome G89.4 and Essential hypertension I10 [facility] [id number] [place] [address] 53024- 2976 Dec, [facility] [id number] [place] [address] 10341- 4513 Dec, Type 2 diabetes mellitus with other diabetic kidney complication E11.29 [facility] [id number] [place] [address] 21349- 2797 Dec, [facility] [id number] [place] [address] 57985- 6788 Dec, Gastroesophageal reflux disease without esophagitis K21.9 [facility] [id number] [place] [address] 48765- 8558 November, Type 2 diabetes mellitus with other diabetic kidney complication E11.29 [facility] [address] [address]- 7997 November, [facility] [address] [place] [address] 89676- 9055 November, Type 2 diabetes mellitus with other diabetic kidney complication E11.29 [facility] [address] [address]- 1430 November, [facility] [address] [address]- 2686 November, Type 2 diabetes mellitus with other diabetic kidney complication E11.29 [facility] [address] [address]- 4453 November, [facility] [address] [address]- 1716 Oct, Essential hypertension I10 [place] [address] [place] [address] 84034- 1685 10 Oct, 2016 Psoriasis of scalp L40.9 [place] [id number] [place] [address] 66966- 1489 Oct, Essential hypertension I10 and Chronic pain syndrome G89.4 [place] [id number] [place] [address] 14144- 2188 Oct, [place] [id number] [place] [address] 45969- 1689 Sep, Type 2 diabetes mellitus with other diabetic kidney complication E11.29 [place] [id number] [place] [address] 09881- 7810 Sep, [place] [address] [place] [address] 85381- 5012 Sep, Type 2 diabetes mellitus with other diabetic kidney complication E11.29 [place] [address] [place] [address] 34925- 8153 Sep, Type 2 diabetes mellitus with other diabetic kidney complication E11.29 [place] [id number] [place] [address] 03615- 3008 Sep, Type 2 diabetes mellitus with other diabetic kidney complication E11.29 ; Chronic kidney disease, stage 4 (severe) N18.4 ; Chronic obstructive pulmonary disease, unspecified COPD type J44.9 ; Iron deficiency anemia due to chronic blood loss D50.0 ; oysterman 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 ; Gastroesophageal reflux disease without esophagitis K21.9 ; Essential hypertension I10 ; Primary insomnia F51.01 ; Depression, unspecified depression type F32.9 ; Chronic pain syndrome G89.4 ; Wrist pain, right M25.531 ; Paresthesia of right upper extremity R20.2 and Psoriasis of scalp L40.9 [address] [place] [address] 20807- 7126 Sep, [place] [id number] [place] [address] 10568- 8667 Aug, Essential hypertension I10 [facility] [id number] [place] [address] 83598- 9661 Aug, History of DVT (deep vein thrombosis) Z86.718 [facility] [id number] [place] [address] 22877- 6856 14 Aug, 2016 [facility] [address] 50607- 8887 Jul, [facility] [id number] [place] [address] 90828- 6464 Jul, [facility] [address] 38112- 1775 Jul, oysterman 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 ; Chronic pain syndrome G89.4 and Chronic kidney disease, stage 4 (severe) N18.4 [facility] [id number] [place] [address] 49973- 1168 Jul, [facility] [id number] [place] [address] 14889- 9677 Jul, [facility] [id number] [place] [address] 15981- 6465 Jul, [facility] [id number] [place] [address] 50058- 2428 Jul, [facility] [id number] [place] [address] 46836- 9285 Jul, [facility] [id number] [place] [address] 18068- 1276 Jul, Type 2 diabetes mellitus with other diabetic kidney complication E11.29 [facility] [id number] [place] [address] 77752- 8275 Jul, History of DVT (deep vein thrombosis) Z86.718 [facility] [id number] [place] [address] 89641- 0904 Jun, [place] [address] [address]- 1119 19 Jun, 2016 History of DVT (deep vein thrombosis) Z86.718 [place] [address] [place] [address] 39038- 6386 15 Jun, 2016 Post traumatic stress disorder (PTSD) F43.10 [place] [id number] [place] [address] 16478- 6968 07 Jun, 2016 Type 2 diabetes mellitus with other diabetic kidney complication E11.29 ; Diabetic 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 ; Iron deficiency anemia due to chronic blood loss D50.0 ; Chronic obstructive pulmonary disease, unspecified COPD type J44.9 ; jail 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 ; History [...] pain M79.641 and Right wrist pain M25.531 [place] [address] [place] [address] 58252- 2493 May, [place] [address] [place] [address] 25605- 7492 May, [place] [id number] [place] [address] 26771- 0095 May, [place] [id number] [place] [address] 28363- 0244 May, [place] [address] [place] [address] 86088- 0189 May, Anemia in other chronic diseases classified elsewhere D63.8 [place] [address] [place] [address]- 4363 02 May, 2016 [facility] [address] [facility] [id number] [place] [address]- 3506 Apr, [facility] [id number] [place] [address] 2546 27 Mar, 2015 Dermatofibroma D23.9 [facility] [address] [place] [address] 2546 20 Mar, 2015 [facility] [address] [facility] [id number] [place] [address] 2548 14 Mar, 2015 Chronic pain syndrome G89.4 [facility] [address] [place] [address] 2546 09 Mar, 2015 [facility] [address] [place] [address]- 3448 07 Mar, 2015 [facility] [address] [address]- 1782 06 Mar, 2015 [facility] [id number] [place] [address]- 7169 30 Feb, 2016 [facility] [id number] [place] [address]- 0278 Feb, [facility] [id number] [place] [address]- 9594 Feb, [facility] [id number] [address]- 0578 Feb, [facility] [address] [facility] [id number] [place] [address]- 254 Feb, [facility] [id number] [place] [address]- 9970 15 Feb, 2016 [facility] [id number] [place] [address]- 5881 Feb, 2016 Type 2 diabetes mellitus with other diabetic kidney complication E11.29 ; Diabetic 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 ; Iron deficiency anemia due to chronic blood loss D50.0 ; Chronic obstructive pulmonary disease, unspecified COPD type J44.9 ; jail 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 ; History of DVT (deep vein thrombosis) Z86.718 ; Chronic pain syndrome G89.4 ; Oxygen desaturation during sleep G47.34 ; Sleep apnea in adult G47.33 ; Gastroesophageal reflux disease without esophagitis K21.9 ; Essential hypertension I10 ; Primary insomnia F51.01 ; Depression, unspecified depression type F32.9 and Renal failure, chronic, stage 4 (severe) N18.4 [place] [address] 45709- 8079 Feb, Skin tags, multiple acquired L91.8 [place] [address] 07964- 6168 Jan, [facility] [address] [id number] Jan, Dental examination Z01.20 [facility] [address] 74936- 5712 Jan, [place] [address] 13904- 1412 Jan, Type 2 diabetes mellitus with other diabetic kidney complication E11.29 ; Diabetic 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 ; Iron deficiency anemia due to chronic blood loss D50.0 ; Chronic obstructive pulmonary disease, unspecified COPD type J44.9 ; jail 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 ; History of DVT (deep vein thrombosis) Z86.718 ; Chronic pain syndrome G89.4 ; Oxygen desaturation during sleep G47.34 ; Sleep apnea in adult G47.33 ; Gastroesophageal reflux disease without esophagitis K21.9 ; Essential hypertension I10 ; Primary insomnia F51.01 ; Depression, unspecified depression type F32.9 ; Skin lesion L98.9 and Renal failure, chronic, stage 4 (severe) N18.4 [place] [address] 54132- 5714 Dec, Diabetes type 2, uncontrolled E11.65 [facility] [address] [address]- 3554 Dec, [facility] [address] [address]- 7273 Dec, Type 2 diabetes mellitus with other diabetic kidney complication E11.29 ; Diabetic 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 ; Iron deficiency anemia due to chronic blood loss D50.0 ; Chronic obstructive pulmonary disease, unspecified COPD type J44.9 ; oysterman 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 ; History of DVT (deep vein thrombosis) Z86.718 ; Chronic pain syndrome G89.4 ; Oxygen desaturation during sleep G47.34 ; Sleep apnea in adult G47.33 ; Gastroesophageal reflux disease without esophagitis K21.9 ; Essential hypertension I10 ; Primary insomnia F51.01 and Depression, unspecified depression type F32.9 [facility] [id number] [place] [address] [id number] Dec, Dental caries K02.9 [facility] [id number] [place] [address] [id number] Dec, [facility] [address] [id number] Dec, Dental examination Z01.20 [facility] [id number] [place] [address] [id number] November, Dental examination Z01.20 and Dental caries K02.9 [facility] [address] [id number], [place] [id number] Oct, [facility] [address] [id number], [place] [id number] Oct, [facility] [address] [id number] [place] [address] [id number] Sep, [facility] [address] [id number] [place] [address] [id number] Sep, [facility] [address] [id number] [place] [address] [id number] Sep, [facility] [address] [id number], [place] [id number] Sep, Other chronic pain 338.29 [facility] [place] [id number], [place] [id number] Aug, Diabetes type 2, uncontrolled E11.65 and Morbid obesity due to excess calories E66.01 [facility] [place] [id number], [place] [id number] Aug, Hair loss L65.9 [facility] [place] [id number] [place] [address] [id number] Aug, [facility] [place] [id number], [place] [id number] Jul, [facility] [place] [id number] [place] [address] [id number] Jul, [facility] [place] [id number] [place] [address] [id number] Jun, [facility] [place] [id number] [place] [address] [id number] Jun, Hair loss L65.9 and Disorder of the skin and subcutaneous tissue, unspecified L98.9 [facility] [place] [id number] [place] [address] [id number] May, Type 2 diabetes mellitus with other diabetic kidney complication E11.29 ; Type 2 diabetes mellitus with hyperglycemia E11.65 ; Morbid obesity due to excess calories E66.01 and Essential hypertension I10 [facility] [place] [id number] [place] [address] [id number] May, Diabetes type 2, uncontrolled E11.65 ; Encounter for immunization Z23 and Morbid obesity due to excess calories E66.01 [facility] [place] [id number], [place] [id number] May, [facility] [id number] [place] [address] [id number] 4311 Apr, [facility] [place] [id number] [place] [address] [id number] Apr, Hyperglycemia R73.9 [facility] [place] [id number], [place] [id number] Apr, [facility] [id number], [place] [id number] Apr, Depression F32.9 ; Encounter for immunization Z23 ; Hyperglycemia R73.9 and Anemia in other chronic diseases classified elsewhere D63.8 [facility] [address] [id number] [id number] Mar, [facility] [address]00565100[place], [place] [id number] Feb, Positive occult stool blood test 792.[id number] [place] [address] [id number] Feb, Depression 311 ; Other chronic pain 338.29 and Diabetes with renal manifestations, type II or unspecified type, not stated as uncontrolled 250.40 [facility] [address]00565100[place] 71303812- [address]25 Feb, Occult blood in stools 792.1 [address]00565100[place], [place] [id number] Feb, Anemia 285.9 ; Occult blood positive stool 792.1 ; Unspecified essential hypertension 401.9 and Other chronic pain 338.29 [address]00565100[place], [place] [id number] Feb, [address]00565100[place], [place] [id number] Feb, Anemia 285.9 [address]00565100[place], [place] [id number] Feb, [address]00565100[place], [place] [id number] Feb, [id number] [id number] Feb, Diabetes with renal manifestations, type II or unspecified type, not stated as uncontrolled 250.40 ; Other chronic pain 338.29 ; Unspecified essential hypertension 401.9 ; Anemia 285.9 and Depression 311 [address]00565100[place], [place] [id number] Jan, [id number] [place] [address] [id number] Jan, Anemia 285.9 and Follow up V67.9 [facility] [place] [address] [id number] [place] [id number] Jan, [facility] [place] [address] [id number] [place] [id number] Jan, [facility] [place] [address] [facility] [id number] [place] [id number] Jan, [facility] [place] [address] [id number] [place] [id number] Dec, [facility] [place] [facility] [address]00565100[place] [address]- 8047 Oct, [facility] [place] [facility] [id number] [place] [address] 26233- 6085 Oct, [facility] [place] [facility] [address] [id number] [address]- 1132 Sep, [facility] [place] [id number], [place] [id number] Sep, [facility] [place] [facility] [address]00565100[place] 11468888- 4836 Sep, [facility] [place] [id number], [place] [id number] Aug, [facility] [place] [facility] [address]00565100[place] [address]- 1422 Aug, [facility] [place] [facility] [address]00565100[place] [address]- 7870 Aug, [facility] [place] [address] [id number], [place] [id number] Aug, [facility] [place] [facility] [address]00565100[place] [address]- 2618 Aug, [facility] [place] [facility] [address]00565100[place] [address]- 9558 Aug, [facility] [place] [address] [id number], [place] [id number] Aug, [facility] [place] [facility] [address] [facility] [id number] [place] [address]- 1130 Aug, [facility] [place] [address] [facility] [id number] [place] [id number] Jul, [facility] [place] [facility] [address] [facility] [id number] [place] [address]- 6756 Jul, [facility] [place] [facility] [address] [facility] [id number] [place] [address]- 1405 Jul, [facility] [place] [address] [facility] [id number] [place] [id number] Jul, [facility] [place] [facility] [address] [facility] [id number] [place] [address]- 5440 Jul, [facility] [place] [address] [facility] [id number] [place] [id number] Jul, [facility] [address] [facility] [id number] [address]- 5851 Jul, [facility] [place] [address] [facility] [id number], [place] [id number] Jun, [facility] [place] [address] [facility] [id number] [place] [id number] Jun, [facility] [place] [facility] [address] [id number] [address]- 4952 Jun, [facility] [place] [facility] [address] [facility] [id number] [place] [address]- 4080 Jun, [facility] [place] [address] [facility] [id number], [place] [id number] Jun, [facility] [place] [facility] [address] [facility] [id number] [address]- 9044 Jun, [facility] [place] [address] [facility] [id number], [place] [id number] May, [facility] [place] [facility] [address] [facility] [id number] [place] [address]- 0796 May, [facility] [place] [facility] [address] [facility] [id number] [place] [address]- 3624 May, [facility] [place] [address] [id number], [place] [id number] Apr, [facility] [place] [facility] [address] [facility] [id number] [place] [address]- 9825 Apr, [facility] [place] [address] [id number], [place] 923937492 Apr, [facility] [place] [address] [id number] [place] [id number] Apr, [facility] [place] [facility] [address] [facility] [id number] [place] [address]- 4289 Apr, [facility] [place] [facility] [address] [facility] [id number] [place] [address]- 7243 Apr, [facility] [place] [address] [facility] [id number], [place] [id number] Mar, [facility] [place] [facility] [address]00565100[place] [address]- 1646 Mar, [facility] [place] [address] [facility] [id number], [place] [id number] Mar, [facility] [place] [facility] [address] [facility] [id number] [place] 795536- 4296 Mar, [facility] [place] [address] [facility] [id number], [place] [id number] Mar, [facility] [place] [facility] [address] [facility] [id number] [place] [address]- 3961 Mar, [facility] [place] [address] [facility] [id number], [place] 843151766 Mar, [facility] [place] [facility] [address] [facility] [id number] [place] [address]- 0074 Mar, [facility] [place] [address] [facility] [id number], [place] [id number] Mar, [facility] [place] [facility] [address] [facility] [id number] [place] [address]- 8598 Mar, [facility] [place] [address] [facility] [id number], [place] [id number] Feb, [facility] [place] [facility] [address] [id number] [place] [address]- 2546 Feb, [facility] [place] [address] [id number] [place] 026987157 Jan, [facility] [place] [facility] [address] [id number] [place] [address]- 2546 Jan, [facility] [place] [address] [id number] [place] [id number] Jan, [facility] [place] [facility] [address] [id number] [place] [address]- 0386 Jan, [facility] [place] [address] [id number] [place] [id number] Jan, [facility] [place] [facility] [address] [id number] [place] [address] 2546 Jan, [facility] [place] [facility] [address] [facility] [id number] [place] [address]- 8636 Dec, [facility] [place] [facility] [address] [id number] [place] [address]- 4427 Dec, [facility] [place] [address] [id number] [place] [id number] November, [facility] [place] [facility] [address] [id number] [place] [address]- 2676 November, [facility] [place] [address] [id number] [place] [id number] November, [facility] [place] [facility] [address] [id number] [place] [address]- 2546 November, [facility] [place] [address] [id number] [place] 700629196 Oct, [facility] [place] [facility] [address] [id number] [place] [address]- 5236 Oct, [facility] [place] [facility] [address] [id number] [place] [address]- 6623 Oct, [facility] [place] [facility] [address] [facility] [id number] [address]- 5693 Oct, [facility] [place] [facility] [address] [facility] [id number] [place] [address]- 0460 Oct, [facility] [place] [facility] [address] [facility] [id number] [address]- 1116 Oct, [facility] [place] [address] [facility] [id number], [place] [id number] Sep, [facility] [place] [address] [facility] [id number], [place] 180082803 Sep, [facility] [place] [facility] [address] [facility] [id number] [address]- 7672 Sep, [facility] [place] [facility] [address]00565100[place] [address]- 8149 Sep, [facility] [place] [id number], [place] 348810740 Sep, [facility] [place] [facility] [address]00565100[place] [address]- 3056 Sep, [facility] [place] [facility] [address]00565100[place] [address]- 6080 Aug, [facility] [place] [facility] [address]00565100[place] [address]- 7204 Aug, [facility] [place] [address] [id number], [place] 878951465 Aug, [facility] [place] [address] [id number], [place] [id number] Aug, [facility] [place] [facility] [address] [facility] [id number] [place] [address]- 6516 Aug, [facility] [place] [address] [facility] [id number], [place] [id number] Aug, [facility] [place] [facility] [address] [facility] [id number] [place] [address]- 0526 Aug, [facility] [place] [id number], [place] [id number] Aug, [facility] [place] [facility] [address] [id number] [place] [address]- 2546 Aug, [facility] [place] [address] [facility] [id number] [place] [id number] Aug, [facility] [place] [facility] [address] [id number] [address]- 2546 Aug, [facility] [place] [address] [facility] [id number], [place] [id number] Aug, [facility] [place] [facility] [address] [id number] [place] [address]- 2546 Aug, [facility] [place] [facility] [address] [facility] [id number] [place] [address]- 2546 Jul, [facility] [place] [address] [id number], [place] [id number] Jun, [facility] [place] [facility] [address]00565100[place] [address]- 2546 Jun, [facility] [place] [facility] [address] [id number] [address]- 3896 Jun, [facility] [place] [facility] [address] [facility] [id number] [place] [address]- 2566 Jun, [facility] [place] [address] [id number], [place] 329067333 Jun, [facility] [place] [facility] [address]00565100[place] [address]- 2546 Jun, [facility] [place] [facility] [address] [id number] [place] [address]- 2546 Jun, [facility] [place] [address] [facility] [id number], [place] 214568071 Jun, [facility] [place] [facility] [address] [facility] [id number] [place] [address]- 2546 Jun, [facility] [place] [facility] [address] [facility] [id number] [place] [address]- 2546 May, [facility] [place] [address] [facility] [id number], [place] [id number] May, [facility] [place] [facility] [address]00565100[place] [address]- 4960 May, [facility] [place] [facility] [address] [id number]64[place]- 1274 May, [facility] [place] [facility] [address]00565100[place] [address]- 8547 May, [facility] [place] [facility] [address] [facility] [id number] [place] [address]- 2584 May, [facility] [place] [id number] [place] [address] [id number] May, [facility] [place] [facility] [address]00565100[place] [address]- 8688 May, [facility] [place] [id number], [place] 359011823 May, [facility] [place] [facility] [address]00565100[place] [address]- 3051 May, [facility] [place] [address] [id number], [place] 862108652 Apr, [facility] [place] [facility] [address]00565100[place] [address]- 1537 Apr, [facility] [place] [facility] [address]00565100[place] [address]- 2342 Apr, [facility] [place] [address] [facility] [id number], [place] 474387654 Apr, [facility] [place] [facility] [address] [facility] [id number] [place] [address]- 0173 Apr, [facility] [place] [facility] [address] [facility] [id number] [place] [address]- 0610 Apr, [facility] [place] [address] [facility] [id number], [place] 900008125 Apr, [facility] [place] [facility] [address]00565100[place] [address]- 5812 Apr, [facility] [place] [facility] [address] [facility] [id number] [place] [address]- 5507 Apr, [facility] [address] [facility] [id number] [address]- 6989 Apr, [facility] [place] [address] [id number], [place] 198582131 Apr, [facility] [address] [facility] [id number] [place] [address]- 6027 Apr, [facility] [place] [address] [id number], [place] 274206357 Apr, [facility] [address] [facility] [id number] [place] [address]- 7291 Apr, [facility] [place] [address] [id number], [place] 904435304 Apr, [facility] [place] [facility] [address] [facility] [id number] [place] 617[place]- 4440 Apr, [facility] [place] [facility] [address] [facility] [id number] [place] [address]- 2606 Apr, [facility] [address] [facility] [id number] [place] [address]- 7794 Apr, [facility] [place] [address] [id number], [place] 808991685 Apr, [facility] [place] [facility] [address] [facility] [id number] [place] [address]- 3566 27 Mar, 2013 [facility] [place] [facility] [address] [facility] [id number] [place] [address]- 2045 Mar, [facility] [address] [id number], [place] 231115346 17 Mar, 2013 [facility] [place] [address] [id number], [place] [id number] 17 Mar, 2013 [facility] [place] [address] [id number], [place] 604376249 16 Mar, 2013 [facility] [place] [address] [id number] [place] [id number] Feb, [facility] [place] [address] [id number] [place] 157131261 Feb, [facility] [place] [address] [id number] [place] 511606290 Feb, [facility] [address] [facility] [id number] [place] 18825[place]- 1153 Feb, [facility] [place] [address] [id number] [place] 129747268 Feb, [facility] [place] [address] [id number] [place] 032957706 Feb, [facility] [place] [address] [id number] [place] [id number] Feb, [facility] [place] [address] [id number] [place] 518523458 Feb, [facility] [place] [address] [id number] [place] 282783871 Feb, [facility] [place] [address] [id number] [place] 725485471 Jan, [facility] [place] [address] [id number] [place] 290994873 Jan, [facility] [place] [address] [id number] [place] 307937446 Jan, [facility] [place] [address] [id number] [place] 336771316 Jan, [facility] [place] [address] [id number] [place] 214469308 Jan, [facility] [address] [facility] [id number] [place] 99244588- 4170 Jan, [facility] [place] [address] [id number] [place] 614074048 Jan, [facility] [place] [address] [id number] [place] [id number] Jan, [facility] [place] [address] [id number] [place] [id number] Dec, [facility] [place] [address] [id number] [place] 520986415 November, [facility] [place] [address] [id number] [place] 964666894 November, [facility] [place] [address] [id number] [place] 449839701 November, [facility] [place] [address] [id number] [place] 575129539 November, [facility] [place] [address] [id number] [place] 715696163 November, [facility] [place] [address] [id number] [place] [id number] November, [facility] [address] [id number] [place] [id number] Jul, [facility] [address] [id number] [place] [id number] Jul, [facility] [address] [id number] [place] [id number] Jul, [facility] [address] [id number] [place] [id number] Jun, [facility] [address] [address] Jun, [facility] [address] [id number] [place] [id number] May, [facility] [id number] [address] May, [facility] [place] [address] [id number][place] [id number] May, [facility] [place] [facility] [address] [facility] [id number] [place] [address] [address] May, [facility] [place] [address] [id number][place] [id number] May, [facility] [place] [facility] [address] [id number] [address] May, [facility] [address] [id number] [place] [id number] Apr, [facility] [place] [facility] [id number] [address] Apr, [facility] [address] [facility] [id number] [address] Apr, [facility] [address] [id number][place] [id number] Apr, [facility] [place] [address] [id number][place] [id number] Apr, [facility] [address] [facility] [id number] [address] Apr, [facility] [address] [facility] [id number] [address] Apr, [facility] [address] [id number], [place] [id number] Apr, [facility] [address] [facility] [id number] [place] [address] Apr, [facility] [address] [id number][place] [id number] Apr, [facility] [address] [id number], [place] [id number] Apr, [facility] [address] [id number] [place] [id number] Mar, [facility] [address] [id number], [place] [id number] Feb, [facility] [address] [id number][place] [id number] Jan, [facility] [address] [id number], [place] [address] Dec, [facility] [address] [id number] [place] [id number] Dec, [facility] [address] [id number][place] [id number] Dec, [facility] [address] [id number], [place] [id number] Dec, [facility] [address] [id number], [place] [id number] Dec, [facility] [address] [id number] [place] [id number] November, [facility] [address] [id number] [place] [id number] November, [facility] [address] [id number] [place] [id number] November, [facility] [id number] [address] November, [facility] [address] [id number] [place] [id number] November, [facility] [place] [address] [id number] [place] [id number] November, [facility] [address] [id number] [place] [id number] Oct, [facility] [address] [id number] [place] [id number] Oct, [facility] [address] [id number] [place] [id number] Oct, [facility] [address] [id number] [place] [id number] Oct, [facility] [address] [id number] [place] [id number] Oct, [facility] [address] [id number] [place] [id number] Oct, [facility] [address] [id number] [place] [id number] Sep, [facility] [address] [id number] [place] [id number] Aug, [facility] [address] [id number] [place] [id number] Aug, [facility] [address] [id number] [place] [id number] Jul, [facility] [id number] [address] Jun, [facility] [id number] [address] Jun, [facility] [place] [facility] [address] [id number] [place] [address] Jun, [facility] [place] [facility] [address] [id number] [place] [address] Jun, [facility] [place] [facility] [address] [id number] [place] [address] May, [facility] [place] [facility] [address] [id number] [place] [address] May, [facility] [place] [facility] [address] [id number] [place] [address] Apr, [facility] [place] [facility] [address] [address] [id number] [place] [address] Apr, [facility] [place] [facility] [address] [id number] [place] [address] Apr, [facility] [place] [facility] [address] [id number] [place] [address] Feb, [facility] [place] [facility] [address] [id number] [place] [address] Aug, [facility] [place] [facility] [address] [id number] [place] [address] Jul, [facility] [place] [facility] [address] [id number] [place] [address] Jun, [facility] [place] [facility] [address] [id number] [place] [address] May, [facility] [place] [facility] [address] [id number] [place] [address] May, [facility] [place] [facility] [address] [id number] [place] [address] May, [facility] [place] [facility] [address] [id number] [place] [address] May, [facility] [place] [facility] [id number] [address] May, [facility] [id number] [address] Aug, [facility] [id number] [address] Jun, [facility] [id number] [address] Jun, [facility] [id number] [address] Jun, [facility] [id number] [place] [address] May, [facility] [id number] [place] [address] Apr, [facility] [id number] [place] [address] Apr, [facility] [id number] [address] Apr, [facility] [id number] [place] [address] Jan, [facility] [id number] [address] Oct, [facility] [id number] [address] May, [facility] [id number] [address] May, IMMUNIZATIONS No Known Immunizations SOCIAL HISTORY [...] Dialysis [facility] 2012 -Dr. Simon now [facility] Medical History Colonoscopy (polyps 2 ) [...]
[2017-12-22 19:18] LABS: BACTERIA,URINE NEGATIVE /HPF; BILIRUBIN,URINE 2+ (NEGATIVE); RBC,URINE 0-2 /HPF; WBC,URINE RARE /HPF
--- OUTSIDE RECORDS SUMMARY | 2017-12-22 19:20 | XMS REPORT ---
Author Author CHELSY VILLAFANA Organization [facility] Address [address] [place] [address] Care Team Providers Care Art Gallery Director Name Role Phone CHELSY VILLAFANA Unavailable PROBLEMS Type Condition ICD9-CM Code PST32-TL Code Onset Dates Condition Status SNOMED Code Problem Chronic pain syndrome G89.4 Active 576010078 Problem Type 2 diabetes mellitus with hyperglycemia E11.65 Active 803081593718993 Problem Primary insomnia F51.01 Active 4263421 Problem Bilateral lower extremity edema R60.0 Active 960495218 Problem Anemia in other chronic diseases classified elsewhere D63.8 Active 460765316 Problem Supplemental oxygen dependent Z99.81 Active 932065225060 Problem Right carpal tunnel syndrome G56.01 Active 227143544256453 Problem 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 Active 481044355211116 Problem Paresthesia of right upper extremity R20.2 Active 79521412 Problem Chronic kidney disease, stage 4 (severe) N18.4 Active 271636679 Problem 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 Active 162901354 Problem Psoriasis of scalp L40.9 Active 747179047 Problem Gastroesophageal reflux disease without esophagitis K21.9 Active 878265591 Problem Chronic obstructive pulmonary disease, unspecified COPD type J44.9 Active 82970365 Problem Type 2 diabetes mellitus with other diabetic kidney complication E11.29 Active 362082466 Problem Diabetic 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 Active 41900603 Problem History of DVT (deep vein thrombosis) Z86.718 Active 968035228 Problem residential 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 Active 861214238 Problem Oxygen desaturation during sleep G47.34 Active 497946505 Problem Essential hypertension I10 Active 13476072 Problem Depression, unspecified depression type F32.9 Active 17435726 Problem Sleep apnea in adult G47.33 Active 06169248 ALLERGIES No Information ENCOUNTERS Encounter Location Date Diagnosis [facility] [address] [address] November, [facility] [id number] [place] [address] 94192- 2616 Oct, Type 2 diabetes mellitus with other diabetic kidney complication E11.29 [place] [id number] [place] [address] 99902- 2059 Oct, Primary insomnia F51.01 [place] [id number] [id number] Oct, Bilateral lower extremity edema R60.0 [place] [id number] [place] [address] 36549- 5418 Oct, [place] [id number] [place] [address] 25664- 9860 Sep, Type 2 diabetes mellitus with other diabetic kidney complication E11.29 and Chronic obstructive pulmonary disease, unspecified COPD type J44.9 [place] [id number] [place] [address] 45676- 6482 Aug, Type 2 diabetes mellitus with other diabetic kidney complication E11.29 [place] [id number] [place] [address] 87363- 1607 Aug, Gastroesophageal reflux disease without esophagitis K21.9 ; residential 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 ; Chronic pain syndrome G89.4 ; Essential hypertension I10 and Type 2 diabetes mellitus with other diabetic kidney complication E11.29 [place] [address], [place] [address] 07[address] 08 Aug, 2017 Chronic pain syndrome G89.4 [place] [id number] [place] [address] 39982- 2213 Aug, Type 2 diabetes mellitus with other diabetic kidney complication E11.29 [facility] [address] [place] [address] 44323- 0511 Jul, Diabetic 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 [place] [id number] [address] 9545 Jul, Primary insomnia F51.01 [place] [id number] [place] [address] 90622- 2019 Jul, [facility] [id number] [place] [address] 55370- 0824 Jul, Type 2 diabetes mellitus with other diabetic kidney complication E11.29 and Chronic obstructive pulmonary disease, unspecified COPD type J44.9 [facility] [id number] [place] [address] 99202- 7709 Jul, Type 2 diabetes mellitus with other diabetic kidney complication E11.29 [place] [id number] [place] [address] 75006- 4170 Jun, Type 2 diabetes mellitus with other diabetic kidney complication E11.29 [facility] [id number] [place] [address] 24688- 6596 Jun, [place] [id number] [place] [address] 97863- 2594 Jun, Chronic obstructive pulmonary disease, unspecified COPD type J44.9 [facility] [id number] [place] [address] 91005- 6141 May, Type 2 diabetes mellitus with other diabetic kidney complication E11.29 [place] [address] [place] [address] 77771- 1802 May, residential 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 and Essential hypertension I10 [place] [id number] [place] [address] 03307- 9538 May, Anemia in other chronic diseases classified elsewhere D63.8 ; Chronic obstructive pulmonary disease, unspecified COPD type J44.9 ; Oxygen desaturation during sleep G47.34 ; Sleep apnea in adult G47.33 and Supplemental oxygen dependent Z99.81 [place] [address], [place] [address] 0048 May, Type 2 diabetes mellitus with other diabetic kidney complication E11.29 ; Essential hypertension I10 ; Chronic pain syndrome G89.4 ; BMI 40.0-44.9, adult Z68.41 ; Gastroesophageal reflux disease without esophagitis K21.9 ; 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 ; 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 ; Diabetic 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 ; Edema of both legs R60.0 and Supplemental oxygen dependent Z99.81 [place] [id number] [place] [address] 68936- 3581 May, [place] [id number] [place] [address] 08838- 2835 May, Essential hypertension I10 and Gastroesophageal reflux disease without esophagitis K21.9 [place] [id number] [place] [address] 28999- 7467 May, [place] [address] 83790- 0660 May, Type 2 diabetes mellitus with other diabetic kidney complication E11.29 and residential 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 [place] [id number] [place] [address] 72941- 3096 Apr, Chronic pain syndrome G89.4 and Essential hypertension I10 [place] [id number] [place] [address] 31265- 1576 Apr, Type 2 diabetes mellitus with other diabetic kidney complication E11.29 [facility] [id number] [place] [address] 75046- 8718 Apr, Type 2 diabetes mellitus with other diabetic kidney complication E11.29 [place] [id number] [place] [address] 01816- 3869 Apr, Essential hypertension I10 [place] [id number] [place] [address] 35760- 6964 Apr, Gastroesophageal reflux disease without esophagitis K21.9 [place] [id number] [place] [address] 10648- 6819 Apr, Type 2 diabetes mellitus with other diabetic kidney complication E11.29 [facility] [id number] [place] [address] 22468- 5289 Apr, Type 2 diabetes mellitus with other diabetic kidney complication E11.29 and 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 [facility] [id number] [place] [address] 81678- 9828 Mar, Encounter for immunization Z23 and Preoperative examination Z01.818 [facility] [address] 84234- 1787 Mar, [place] [address] 31084- 4398 Mar, Type 2 diabetes mellitus with other diabetic kidney complication E11.29 [place] [address] 70833- 5853 Mar, Type 2 diabetes mellitus with other diabetic kidney complication E11.29 [facility] [id number] [place] [address] 99064- 8422 Mar, Gastroesophageal reflux disease without esophagitis K21.9 [facility] [address] 60982- 7180 Mar, Essential hypertension I10 [place] [id number] [place] [address] 20037- 4991 Feb, 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 [facility] [id number] [place] [address] 83410- 3125 Feb, Type 2 diabetes mellitus with other diabetic kidney complication E11.29 [facility] [id number] [place] [address] 08990- 9902 Feb, Type 2 diabetes mellitus with other diabetic kidney complication E11.29 [facility] [id number] [place] [address] 75958- 2202 Feb, Type 2 diabetes mellitus with other diabetic kidney complication E11.29 [facility] [id number] [place] [address] 06767- 0846 Feb, Gastroesophageal reflux disease without esophagitis K21.9 [facility] [id number] [place] [address] 30191- 9102 Feb, Type 2 diabetes mellitus with other diabetic kidney complication E11.29 [facility] [address] [place] [address] 37402- 2331 Feb, 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 [facility] [id number] [place] [address] 47895- 4156 Jan, Type 2 diabetes mellitus with other diabetic kidney complication E11.29 [facility] [id number] [place] [address] 99634- 0062 Jan, Type 2 diabetes mellitus with other diabetic kidney complication E11.29 [facility] [id number] [place] [address] 50968- 2495 Jan, Chronic pain syndrome G89.4 [facility] [id number] [place] [address] 02086- 7253 Jan, [facility] [id number] [place] [address] 70628- 3515 Jan, [facility] [address] [place] [address] 83357- 8561 Jan, [facility] [address] [place] [address] 78964- 5574 Jan, [facility] [id number] [place] [address] 81042- 8265 Jan, Primary insomnia F51.01 ; Type 2 diabetes mellitus with other diabetic kidney complication E11.29 ; Chronic pain syndrome G89.4 and Essential hypertension I10 [facility] [address] [place] [address] 70825- 5835 Jan, Primary insomnia F51.01 [facility] [address] [place] [address] 71884- 4625 Jan, Type 2 diabetes mellitus with other diabetic kidney complication E11.29 [facility] [address] [address]- 1277 Jan, [facility] [id number] [place] [address] 05001- 7616 Jan, Chronic obstructive pulmonary disease, unspecified COPD type J44.9 [facility] [address] [place] [address] 54359- 8727 Jan, Essential hypertension I10 ; Type 2 diabetes mellitus with other diabetic kidney complication E11.29 ; Chronic obstructive pulmonary disease, unspecified COPD type J44.9 ; Chronic kidney disease, stage 4 (severe) N18.4 ; Right carpal tunnel syndrome G56.01 ; 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 ; residential (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 and Diabetic 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 [place] [id number] [place] [address] 54896- 0329 Jan, Gastroesophageal reflux disease without esophagitis K21.9 [facility] [id number] [place] [address] 18007- 2020 Dec, [place] [id number] [place] [address] 70563- 2851 Dec, [facility] [id number] [place] [address] 48914- 8986 Dec, 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 ; Chronic pain syndrome G89.4 and Essential hypertension I10 [facility] [address] [place] [address] 20472- 1317 Dec, [facility] [id number] [place] [address] 75325- 1307 Dec, Type 2 diabetes mellitus with other diabetic kidney complication E11.29 [facility] [id number] [place] [address] 72804- 9881 Dec, [facility] [id number] [place] [address] 75056- 1151 Dec, Gastroesophageal reflux disease without esophagitis K21.9 [facility] [id number] [place] [address] 18551- 1312 November, Type 2 diabetes mellitus with other diabetic kidney complication E11.29 [facility] [id number] [place] [address] 27726- 8600 November, [facility] [id number] [place] [address] 36048- 9079 November, Type 2 diabetes mellitus with other diabetic kidney complication E11.29 [facility] [id number] [place] [address] 43864- 4105 November, [facility] [id number] [place] [address] 70018- 8460 November, Type 2 diabetes mellitus with other diabetic kidney complication E11.29 [facility] [id number] [place] [address] 62537- 2912 November, [facility] [id number] [place] [address] 93074- 2423 Oct, Essential hypertension I10 [facility] [id number] [place] [address] 77310- 2781 Oct, Psoriasis of scalp L40.9 [facility] [id number] [place] [address] 97980- 1014 Oct, Essential hypertension I10 and Chronic pain syndrome G89.4 [facility] [id number] [place] [address] 38846- 8163 Oct, [facility] [id number] [place] [address] 95860- 4892 Sep, Type 2 diabetes mellitus with other diabetic kidney complication E11.29 [facility] [id number] [place] [address] 57631- 5517 Sep, [facility] [id number] [place] [address] 50593- 6788 Sep, Type 2 diabetes mellitus with other diabetic kidney complication E11.29 [place] [id number] [place] [address] 75786- 5114 Sep, Type 2 diabetes mellitus with other diabetic kidney complication E11.29 [facility] [id number] [place] [address] 55208- 2290 09 Sep, 2016 Type 2 diabetes mellitus with other diabetic kidney complication E11.29 ; Chronic kidney disease, stage 4 (severe) N18.4 ; Chronic obstructive pulmonary disease, unspecified COPD type J44.9 ; Iron deficiency anemia due to chronic blood loss D50.0 ; 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 ; Gastroesophageal reflux disease without esophagitis K21.9 ; Essential hypertension I10 ; Primary insomnia F51.01 ; Depression, unspecified depression type F32.9 ; Chronic pain syndrome G89.4 ; Wrist pain, right M25.531 ; Paresthesia of right upper extremity R20.2 and Psoriasis of scalp L40.9 [place] [id number] [place] [address] 62150- 8274 Sep, [place] [id number] [place] [address] 06016- 9833 Aug, Essential hypertension I10 [place] [id number] [place] [address] 67805- 3913 Aug, History of DVT (deep vein thrombosis) Z86.718 [place] [id number] [place] [address] 00291- 7683 Aug, [place] [address] [id number] [place] [address] 36811- 0948 Jul, [place] [id number] [place] [address] 25942- 6607 Jul, [place] [id number] [place] [address] 73472- 5524 Jul, 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 ; Chronic pain syndrome G89.4 and Chronic kidney disease, stage 4 (severe) N18.4 [facility] [address], [place] [address]- 8873 Jul, [place] [address] [address]- 4647 Jul, [place] [address] [address]- 7064 Jul, [place] [id number] [place] [address] 61855- 2675 Jul, [facility] [address] [address]- 7390 Jul, [place] [address] [place] [address] 55717- 7871 Jul, Type 2 diabetes mellitus with other diabetic kidney complication E11.29 [facility] [facility] [address] [address]- 8548 Jul, History of DVT (deep vein thrombosis) Z86.718 [facility] [address] [address]- 1656 Jun, [place] [address] [place] [address] 10782- 0870 Jun, History of DVT (deep vein thrombosis) Z86.718 [facility] [address] [address]- 6290 15 Jun, 2016 Post traumatic stress disorder (PTSD) F43.10 [place] [address], [place] [address]- 6182 07 Jun, 2016 Type 2 diabetes mellitus with other diabetic kidney complication E11.29 ; Diabetic 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 ; Iron deficiency anemia due to chronic blood loss D50.0 ; Chronic obstructive pulmonary disease, unspecified COPD type J44.9 ; 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 ; History [...] pain M79.641 and Right wrist pain M25.531 [facility] [address] 24317- 1775 28 May, 2016 [facility] [address] 94115- 3143 23 May, 2016 [place] [id number] [place] [address] 62670- 3767 21 May, 2016 [place] [address] 32691- 7557 15 May, 2016 [place] [address] 95357- 8115 11 May, 2016 Anemia in other chronic diseases classified elsewhere D63.8 [place] [address] 53017- 3638 02 May, 2016 [facility] [id number] [place] [address] 04264- 5179 10 Apr, 2016 [facility] [id number] [place] [address] 13176- 8253 27 Mar, 2016 Dermatofibroma D23.9 [facility] [id number] [place] [address] 38041- 4019 20 Mar, 2016 [facility] [address] 01135- 6938 14 Mar, 2016 Chronic pain syndrome G89.4 [facility] [id number] [place] [address] 15962- 9364 09 Mar, 2016 [facility] [address] 01219- 9988 Mar, [facility] [address], [place] [address]- 8076 Mar, [facility] [address] [place] [address] 70561- 4637 Feb, [facility] [id number] [address]- 9219 Feb, [facility] [id number] [place] [address] 84888- 2792 Feb, [facility] [id number] [place] [address] 49720- 2474 Feb, [facility] [id number] [place] [address] 56334- 9313 Feb, [facility] [id number] [place] [address] 44035- 9903 Feb, [facility] [id number] [place] [address] 72257- 4610 Feb, Type 2 diabetes mellitus with other [...] Renal failure, chronic, stage 4 (severe) N18.4 [facility] [address] [place] [address] 26168- 1665 Feb, Skin tags, multiple acquired L91.8 [facility] [address] [address]- 6122 Jan, [place] [address] [facility] [id number] [id number] Jan, Dental examination Z01.20 [facility] [address], [place] [address]- 4408 Jan, [place] [address] [place] [id number] [address]- 9914 Jan, Type 2 diabetes mellitus with other [...] Renal failure, chronic, stage 4 (severe) N18.4 [place] [address] [address]- 1180 Dec, Diabetes type 2, uncontrolled E11.65 [facility] [address] [address]- 7269 Dec, [address], [place] [address]- 9851 Dec, Type 2 diabetes mellitus with other diabetic kidney complication E11.29 ; Diabetic 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 ; Iron deficiency anemia due to chronic blood loss D50.0 ; Chronic obstructive pulmonary disease, unspecified COPD type J44.9 ; 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 ; History of DVT (deep vein thrombosis) Z86.718 ; Chronic pain syndrome G89.4 ; Oxygen desaturation during sleep G47.34 ; Sleep apnea in adult G47.33 ; Gastroesophageal reflux disease without esophagitis K21.9 ; Essential hypertension I10 ; Primary insomnia F51.01 and Depression, unspecified depression type F32.9 [facility] [address] [id number] [id number] Dec, Dental caries K02.9 [facility] [id number] [place] [address] [id number] Dec, [facility] [address] [id number] [id number] Dec, Dental examination Z01.20 [facility] [id number] [place] [address] [id number] November, Dental examination Z01.20 and Dental caries K02.9 [facility] [id number] [place] [address] [id number] Oct, [facility] [id number] [place] [address] [id number] Oct, [facility] [id number] [place] [address] [id number] Sep, [facility] [id number] [place] [address] [id number] Sep, [facility] [id number] [place] [address] [id number] Sep, [facility] [id number] [place] [address] [id number] Sep, Other chronic pain 338.29 [facility] [id number] [place] [address] [id number] Aug, Diabetes type 2, uncontrolled E11.65 and Morbid obesity due to excess calories E66.01 [facility] [id number] [place] [address] [id number] Aug, Hair loss L65.9 [facility] [id number] [place] [address] [id number] Aug, [facility] [id number] [place] [address] [id number] Jul, [facility] [id number] [place] [address] [id number] Jul, [facility] [id number] [place] [address] [id number] Jun, [place] [id number] [place] [address] [id number] Jun, Hair loss L65.9 and Disorder of the skin and subcutaneous tissue, unspecified L98.9 [place] [id number] [place] [address] [id number] May, Type 2 diabetes mellitus with other diabetic kidney complication E11.29 ; Type 2 diabetes mellitus with hyperglycemia E11.65 ; Morbid obesity due to excess calories E66.01 and Essential hypertension I10 [address] [place] [id number] [place] [address] [id number] May, Diabetes type 2, uncontrolled E11.65 ; Encounter for immunization Z23 and Morbid obesity due to excess calories E66.01 [address] [id number] [place] [address] [id number] May, [facility] [address] [address]- [address] Apr, [address] [place] [id number] [place] [address] [id number] Apr, Hyperglycemia R73.9 [id number] [place] [address] [id number] Apr, [address] [id number] [place] [address] [id number] Apr, Depression F32.9 ; Encounter for immunization Z23 ; Hyperglycemia R73.9 and Anemia in other chronic diseases classified elsewhere D63.8 [facility] [address] [id number] Mar, [address] [place] [address] [id number] Feb, Positive occult stool blood test 792.[address] [id number] Feb, Depression 311 ; Other chronic pain 338.29 and Diabetes with renal manifestations, type II or unspecified type, not stated as uncontrolled 250.40 [facility] [id number] [place] [address] 8[address]- 2942 Feb, Occult blood in stools 792.1 [facility] [id number][place] [id number] Feb, Anemia 285.9 ; Occult blood positive stool 792.1 ; Unspecified essential hypertension 401.9 and Other chronic pain 338.29 [facility] [id number] [place] [address] [id number] Feb, [facility] [id number] [place] [address] [id number] Feb, Anemia 285.9 [facility] [id number] [place] [address] [id number] Feb, [facility] [id number] [place] [address] [id number] Feb, [facility] [id number] [place] [address] [id number] Feb, Diabetes with renal manifestations, type II or unspecified type, not stated as uncontrolled 250.40 ; Other chronic pain 338.29 ; Unspecified essential hypertension 401.9 ; Anemia 285.9 and Depression 311 [facility] [id number] [place] [address] [id number] Jan, [facility] [id number] [place] [address] [id number] Jan, Anemia 285.9 and Follow up V67.9 [facility] [id number] [place] [address] [id number] Jan, [facility] [address] [place] [address] [id number] Jan, [facility] [id number] [place] [address] [id number] Jan, [facility] [id number] [place] [address] [id number] Dec, [facility] [id number] [place] [address] [id number] 5087 Oct, [facility] [id number] [place] [address] 78321- 8758 Oct, [facility] [id number] [place] [address] 60260- 7326 Sep, [facility] [place] [address] [facility] [id number] [place] [id number] Sep, [facility] [place] [facility] [address] [facility] [id number], [place] [address]- 6836 Sep, [facility] [place] [address] [facility] [id number][place] [id number] Aug, [facility] [place] [facility] [address] [facility] [id number][place] [address]- 5526 Aug, [facility] [place] [facility] [address] [facility] [id number], [place] [address]- 6252 Aug, [facility] [place] [address] [facility] [id number], [place] [id number] Aug, [facility] [place] [facility] [address]00565100[place] [address]- 8867 Aug, [facility] [place] [facility] [address] [id number], [place] [address]- 5257 Aug, [facility] [place] [address] [facility] [id number], [place] [id number] Aug, [facility] [place] [facility] [address] [id number], [place] [address]- 3436 Aug, [facility] [place] [address] [facility] [id number], [place] [id number] Jul, [facility] [place] [facility] [address]00565100[place], [place] [address]- 8496 Jul, [facility] [place] [facility] [address] [facility] [id number][place] [address]- 9646 Jul, [facility] [place] [address] [facility] [id number], [place] [id number] Jul, [facility] [place] [facility] [address] [facility] [id number] [address]- 3026 Jul, [facility] [place] [address] [facility] [id number], [place] [id number] Jul, [facility] [place] [facility] [address] [facility] [id number], [place] [address]- 2546 Jul, [facility] [place] [address] [id number] [place] [id number] Jun, [facility] [place] [address] [facility] [id number], [place] [id number] Jun, [facility] [place] [facility] [address] [facility] [id number] [address]- 3556 Jun, [facility] [place] [facility] [address] [facility] [id number] [address]- 5909 Jun, [facility] [place] [address] [facility] [id number] [place] [id number] Jun, [facility] [place] [facility] [address] [facility] [id number], [place] [address]- 6336 Jun, [facility] [place] [address] [id number], [place] [id number] May, [facility] [place] [facility] [address] [facility] [id number], [place] [address]- 5224 May, [facility] [place] [facility] [address] [facility] [id number][place] [address]- 3748 May, [facility] [place] [address] [facility] [id number], [place] [id number] Apr, [facility] [place] [facility] [address] [facility] [id number], [place] [address]- 4576 Apr, [facility] [place] [address] [facility] [id number], [place] [id number] Apr, [facility] [place] [address] [facility] [id number], [place] [id number] Apr, [facility] [place] [facility] [address] [facility] [id number], [place] [address]- 6186 Apr, [facility] [place] [facility] [address] [facility] [id number], [place] [address]- 8896 Apr, [facility] [place] [address] [facility] [id number], [place] [id number] Mar, [facility] [place] [facility] [address] [id number] [place] [address]- 1563 18 Mar, 2014 [facility] [place] [address] [id number] [place] [id number] Mar, [facility] [place] [facility] [address] [facility] [id number] [place] 5299 Mar, [facility] [place] [address] [id number] [place] [id number] Mar, [facility] [place] [facility] [address] [facility] [id number] [place] [address]- 5018 Mar, [facility] [place] [address] [id number] [place] [id number] Mar, [facility] [place] [facility] [address] [facility] [id number] [place] [address]- 2194 Mar, [facility] [place] [address] [facility] [id number] [place] [id number] Mar, [facility] [place] [facility] [address] [facility] [id number], [place] [address]- 2899 Mar, [facility] [place] [address] [facility] [id number] [place] [id number] Feb, [facility] [place] [facility] [address] [facility] [id number], [place] [address]- 3347 Feb, [facility] [address] [id number] [place] [id number] Jan, [facility] [place] [facility] [address] [facility] [id number], [place] [address]- 7881 Jan, [facility] [address] [id number] [place] [id number] Jan, [facility] [place] [facility] [address] [facility] [id number] [place] [address]- 2232 Jan, [facility] [address] [id number], [place] [id number] Jan, [facility] [place] [facility] [address] [facility] [id number], [place] 36505148- 9783 Jan, [facility] [place] [facility] [address] [id number] [place] [address]- 2546 Dec, [facility] [place] [facility] [address] [id number] [place] [address]- 2546 Dec, [facility] [address] [id number] [place] [id number] November, [facility] [place] [facility] [address] [id number] [place] [address]- 2546 November, [facility] [address] [id number] [place] [id number] November, [facility] [place] [facility] [address] [id number] [place] [address]- 2546 November, [facility] [address] [id number] [place] [id number] Oct, [facility] [place] [facility] [address] [id number] [place] [address]- 0946 Oct, [facility] [place] [facility] [address] [id number] [place] [address]- 0736 Oct, [facility] [place] [facility] [address] [id number] [place] [address]- 5186 Oct, [facility] [place] [facility] [address] [id number] [place] [address]- 2546 Oct, [facility] [place] [facility] [address] [id number] [place] [address]- 2546 Oct, [facility] [address] [id number] [place] 712003244 Sep, [facility] [address] [id number] [place] [id number] Sep, [facility] [place] [facility] [address] [id number] [place] [address]- 2546 Sep, [facility] [place] [facility] [address] [id number] [place] [address]- 2546 Sep, [facility] [address] [id number], [place] 514036982 Sep, [facility] [place] [facility] [address]00565100[place] [address]- 3958 Sep, [facility] [place] [facility] [address] [id number], [place] [address]- 3304 Aug, [facility] [place] [facility] [address]00565100[place], [place] [address]- 3329 Aug, [facility] [place] [address] [facility] [id number], [place] [id number] Aug, [facility] [place] [address] [id number], [place] [id number] Aug, [facility] [place] [facility] [address]00565100[place], [place] [address]- 8166 Aug, [facility] [id number], [place] [id number] Aug, [facility] [place] [facility] [address]00565100[place], [place] [address]- 2938 Aug, [facility] [place] [address] [id number], [place] [id number] Aug, [facility] [place] [facility] [address]00565[address], [place] [address]- 6604 Aug, [facility] [place] [address] [id number], [place] [id number] Aug, [facility] [place] [facility] [address] [id number] [address]- 6186 Aug, [facility] [place] [address] [facility] [id number], [place] [id number] Aug, [facility] [place] [facility] [address]00565100[place] [address]- 9945 Aug, [facility] [place] [facility] [address] [id number], [place] [address]- 7987 Jul, [facility] [place] [address] [id number], [place] [id number] Jun, [facility] [place] [facility] [address] [id number] [place] [address]- 0196 Jun, [facility] [place] [facility] [address] [id number] [place] [address]- 1256 Jun, [facility] [place] [facility] [address] [facility] [id number] [place] [address]- 3516 Jun, [facility] [address] [facility] [id number], [place] [id number] Jun, [facility] [place] [facility] [address] [id number] [place] [address]- 5966 Jun, [facility] [place] [facility] [address] [facility] [id number] [place] [address]- 2546 Jun, [facility] [address] [facility] [id number], [place] [id number] Jun, [facility] [place] [facility] [address] [facility] [id number], [place] [address]- 1666 Jun, [facility] [place] [facility] [address] [facility] [id number] [place] [address]- 2126 May, [facility] [address] [facility] [id number], [place] [id number] May, [facility] [place] [facility] [address] [facility] [id number], [place] [address]- 5946 May, [facility] [place] [facility] [address] [facility] [id number], [place] [address]- 6446 May, [facility] [place] [facility] [address] [id number][place] [address]- 1976 May, [facility] [place] [facility] [address] [facility] [id number][place] [address]- 0566 May, [facility] [address] [facility] [id number], [place] [id number] May, [facility] [place] [facility] [address] [facility] [id number], [place] [address]- 1896 May, [facility] [place] [address] [facility] [id number], [place] 162346580 May, [facility] [place] [facility] [address] [facility] [id number], [place] [address]- 9206 May, [facility] [address] [facility] [id number], [place] 823841047 Apr, [facility] [place] [facility] [address] [facility] [id number], [place] [address]- 4124 Apr, [facility] [place] [facility] [address] [facility] [id number][place] [address]- 2893 Apr, [facility] [address] [facility] [id number], [place] [id number] Apr, [facility] [place] [facility] [address] [facility] [id number], [place] [address]- 1551 Apr, [facility] [place] [facility] [address] [facility] [id number], [place] [address]- 4321 Apr, [facility] [place] [address] [facility] [id number], [place] 539149105 Apr, [facility] [place] [facility] [address] [facility] [id number], [place] 761443- 6057 Apr, [facility] [place] [facility] [address] [facility] [id number], [place] [address]- 9371 Apr, [facility] [place] [facility] [address] [facility] [id number], [place] [address]- 0168 Apr, [facility] [place] [address] [facility] [id number], [place] [id number] Apr, [facility] [place] [facility] [address] [facility] [id number], [place] [address]- 9966 Apr, [facility] [place] [address] [facility] [id number], [place] [id number] Apr, [facility] [place] [facility] [address] [facility] [id number], [place] [address]- 3156 Apr, [facility] [place] [address] [facility] [id number], [place] [id number] Apr, [facility] [address] [facility] [id number] [place] [address]- 6514 Apr, [facility] [place] [facility] [address] [facility] [id number] [address]- 4603 Apr, [facility] [address] [facility] [id number][place] [address]- 4661 Apr, [facility] [place] [address] [id number], [place] 915413810 Apr, [facility] [place] [facility] [address] [facility] [id number] [place] 62156988- 7409 Mar, [facility] [address] [facility] [id number], [place] [address]- 1699 Mar, [facility] [address] [id number] [place] 685875733 Mar, [facility] [address] [id number], [place] 715310810 Mar, [facility] [address] [id number], [place] [id number] Mar, [facility] [address] [id number] [place] 940704999 Feb, [facility] [address] [id number], [place] 439405223 Feb, [facility] [address] [id number], [place] 833662198 Feb, [facility] [place] [facility] [address] [facility] [id number], [place] [address] 2546 Feb, [facility] [address] [id number] [place] 512575006 Feb, [facility] [address] [id number] [place] 677920740 Feb, [facility] [address] [id number], [place] 261098714 Feb, [facility] [address] [id number], [place] 125220656 Feb, [facility] [place] [address] [id number] [place] 095460187 Feb, [facility] [place] [address] [id number] [place] 618027145 Jan, [facility] [place] [address] [id number] [place] 792311581 Jan, [facility] [place] [address] [id number] [place] 831710288 Jan, [facility] [place] [address] [id number] [place] 306327124 Jan, [facility] [place] [address] [id number] [place] 190062726 Jan, [facility] [address] [facility] [id number] [place] [address]- 8896 Jan, [facility] [place] [address] [id number] [place] 453404508 Jan, [facility] [place] [address] [id number] [place] 463517363 Jan, [facility] [place] [address] [id number] [place] 699340034 Dec, [facility] [place] [address] [id number] [place] 137194159 November, [facility] [place] [address] [id number] [place] 507514688 November, [facility] [place] [address] [id number] [place] 751064326 November, [facility] [place] [address] [id number] [place] 851569713 November, [facility] [place] [address] [id number] [place] 663772200 November, [facility] [place] [address] [id number] [place] 454862998 November, [facility] [place] [address] [id number] [place] 630614544 Jul, [facility] [place] [address] [id number] [place] 370683841 Jul, [facility] [address] [id number], [place] 458934511 Jul, [facility] [address] [id number] [place] 962558433 Jun, [facility] [place] [facility] [address] [facility] [id number], [place] [address]- 2256 Jun, [facility] [place] [address] [facility] [id number] [place] 616788019 May, [facility] [place] [facility] [address] [facility] [id number], [place] [address]- 7093 May, [facility] [place] [address] [facility] [id number], [place] 806378514 May, [facility] [place] [facility] [address] [facility] [id number] [address]- 6379 May, [facility] [place] [address] [facility] [id number], [place] 939564216 May, [facility] [place] [facility] [address]00565100[place], [place] [address]- 1978 May, [facility] [place] [address] [facility] [id number], [place] 683646813 Apr, [facility] [place] [facility] [address]00565100[place], [place] [address]- 2733 Apr, [facility] [place] [facility] [address] [facility] [id number], [place] [address]- 1085 18 Apr, 2012 [facility] [place] [address] [id number], [place] 024191451 Apr, [facility] [place] [address] [facility] [id number], [place] 773878293 Apr, [facility] [place] [facility] [address] [facility] [id number], [place] 159485- 1556 Apr, [facility] [place] [facility] [address] [facility] [id number], [place] [address]- 7761 Apr, [facility] [place] [address] [facility] [id number], [place] 315517192 Apr, [facility] [place] [facility] [address] [facility] [id number][place] [address]- 2546 Apr, [facility] [place] [address] [id number] [place] [id number] Apr, [facility] [place] [address] [id number] [place] [id number] Apr, [facility] [place] [address] [id number] [place] 856240552 Mar, [facility] [place] [address] [id number] [place] 828919924 Feb, [facility] [place] [address] [id number] [place] [id number] Jan, [facility] [place] [address] [id number] [place] 341933244 Dec, [facility] [place] [address] [id number] [place] [id number] Dec, [facility] [place] [address] [id number] [place] [id number] Dec, [facility] [place] [address] [id number] [place] [id number] Dec, [facility] [place] [address] [id number] [place] [id number] Dec, [facility] [place] [address] [id number] [place] [id number] November, [facility] [place] [address] [id number] [place] [id number] November, [facility] [place] [address] [id number] [place] [id number] November, [facility] [address] [facility] [id number] [address] November, [facility] [place] [address] [id number] [place] [id number] November, [facility] [place] [address] [id number] [place] [id number] November, [facility] [place] [address] [id number] [place] [id number] Oct, [facility] [place] [address] [id number] [place] [id number] Oct, [facility] [place] [address] [id number] [place] [id number] Oct, [facility] [place] [address] [id number] [place] [id number] Oct, [facility] [place] [address] [id number] [place] [id number] Oct, [facility] [place] [address] [id number] [place] [id number] Oct, [facility] [place] [address] [id number] [place] [id number] Sep, [facility] [place] [address] [id number] [place] [id number] Aug, [facility] [place] [address] [id number] [place] [id number] Aug, [facility] [place] [address] [id number] [place] [id number] Jul, [facility] [place] [facility] [address] [id number] [address] Jun, [facility] [place] [facility] [id number] [place] [address] Jun, [facility] [place] [facility] [id number] [place] [address] Jun, [facility] [place] [facility] [id number] [address] Jun, [facility] [place] [facility] [id number], [place] [address] May, [facility] [place] [facility] [address] [id number], [place] [address] May, [facility] [place] [facility] [id number] [place] [address] Apr, [facility] [place] [facility] [id number], [place] [address] Apr, [facility] [place] [facility] [address] [id number] [place] [address] 10 Apr, 2011 [facility] [address] [id number] [place] [address] Feb, [facility] [place] [facility] [address] [id number] [place] [address] 15 Aug, 2010 [facility] [place] [facility] [address] [id number] [place] [address] Jul, [facility] [place] [facility] [address] [id number] [place] [address] 30 Jun, 2010 [facility] [place] [facility] [address] [id number] [place] [address] May, [facility] [place] [facility] [address] [id number] [place] [address] May, [facility] [place] [facility] [address] [id number] [place] [address] May, [facility] [place] [facility] [address] [id number] [place] [address] May, [facility] [place] [facility] [address] [id number] [place] [address] May, [facility] [place] [facility] [address] [facility] [id number] [place] [address] 16 Aug, 2009 [facility] [place] [facility] [address] [id number] [place] [address] Jun, [facility] [place] [facility] [address] [id number] [place] [address] Jun, [facility] [place] [facility] [address] [id number] [place] [address] Jun, [facility] [place] [facility] [address] [id number] [place] [address] 24 May, 2009 [facility] [place] [facility] [address] [id number] [place] [address] Apr, [facility] [address] [facility] [id number], [place] [address] Apr, [facility] [address] [id number] [address] Apr, [facility] [address] [id number] [address] Jan, [facility] [id number] [address] Oct, [facility] [address] [id number] [address] May, [facility] [id number] [address] May, IMMUNIZATIONS No Known Immunizations SOCIAL HISTORY [...] Dialysis [facility] 2012 -Dr. Simon now [facility] Medical History Colonoscopy (polyps 2 ) [...]
--- OUTSIDE RECORDS SUMMARY | 2017-12-22 19:22 | XMS REPORT ---
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 Active 304228649 Problem 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 Active 323224273228666 Problem Chronic kidney disease, stage 4 (severe) N18.4 Active 812563424 Problem Type 2 diabetes mellitus with hyperglycemia E11.65 Active 353755192350217 Problem Psoriasis of scalp L40.9 Active 997234838 Problem Paresthesia of right upper extremity R20.2 Active 19953690 Problem Diabetic 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 Active 05118416 Problem Gastroesophageal reflux disease without esophagitis K21.9 Active 693886240 Problem Anemia in other chronic diseases classified elsewhere D63.8 Active 083646959 Problem Type 2 diabetes mellitus with other diabetic kidney complication E11.29 Active 639866230 Problem Depression, unspecified depression type F32.9 Active 90310165 Problem History of DVT (deep vein thrombosis) Z86.718 Active 099876736 Problem Chronic obstructive pulmonary disease, unspecified COPD type J44.9 Active 58102463 Problem 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 Active 141890288 Problem Oxygen desaturation during sleep G47.34 Active 792556380 Problem Essential hypertension I10 Active 51713662 ALLERGIES No Information ENCOUNTERS Encounter Location Date Diagnosis [facility] [address] [facility] [id number] [id number] Oct, [facility] [address], [place] [address] Oct, [facility] [id number] [place] [address] 91587- 4215 Oct, [place] [address] [place] [address] 57999- 3858 Sep, Type 2 diabetes mellitus with other diabetic kidney complication E11.29 and Chronic obstructive pulmonary disease, unspecified COPD type J44.9 [place] [id number], [place] [address] 15 Aug, 2017 Type 2 diabetes mellitus with other diabetic kidney complication E11.29 [place] [address] [place] [address] 37895- 0790 12 Aug, 2017 Gastroesophageal reflux disease without esophagitis K21.9 ; alf 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 ; Chronic pain syndrome G89.4 ; Essential hypertension I10 and Type 2 diabetes mellitus with other diabetic kidney complication E11.29 [place] [address], [place] [address] 08 Aug, 2017 Chronic pain syndrome G89.4 [place] [address] [place] [address] 48669- 5362 Aug, Type 2 diabetes mellitus with other diabetic kidney complication E11.29 [place] [address], [place] [address] 125[address] Jul, Diabetic 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 [place] [address], [place] [address] 55[address] Jul, Primary insomnia F51.01 [place] [id number] [place] [address] 29136- 9478 Jul, [place] [address] [place] [address] 46070- 3587 Jul, Type 2 diabetes mellitus with other diabetic kidney complication E11.29 and Chronic obstructive pulmonary disease, unspecified COPD type J44.9 [place] [address], [place] [address] 4545 Jul, Type 2 diabetes mellitus with other diabetic kidney complication E11.29 [place] [address], [place] [address] 3057 Jun, Type 2 diabetes mellitus with other diabetic kidney complication E11.29 [place] [id number] [place] [address] 74491- 3570 Jun, [place] [id number] [place] [address] 07146- 0338 Jun, Chronic obstructive pulmonary disease, unspecified COPD type J44.9 [place] [id number] [place] [address] 81318- 1394 May, Type 2 diabetes mellitus with other diabetic kidney complication E11.29 [place] [address] [address] 6021 May, 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 and Essential hypertension I10 [address] [place] [address] 46095- 8860 May, Anemia in other chronic diseases classified elsewhere D63.8 ; Chronic obstructive pulmonary disease, unspecified COPD type J44.9 ; Oxygen desaturation during sleep G47.34 ; Sleep apnea in adult G47.33 and Supplemental oxygen dependent Z99.[address] [place] [address] 22043- 8191 May, Type 2 diabetes mellitus with other diabetic kidney complication E11.29 ; Essential hypertension I10 ; Chronic pain syndrome G89.4 ; BMI 40.0-44.9, adult Z68.41 ; Gastroesophageal reflux disease without esophagitis K21.9 ; 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 ; continuous improvement engineer 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 ; Diabetic 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 ; Edema of both legs R60.0 and Supplemental oxygen dependent Z99.81 [place] [id number] [place] [address] 78033- 9716 08 May, 2017 [facility] [id number] [place] [address] 00308- 9107 May, Essential hypertension I10 and Gastroesophageal reflux disease without esophagitis K21.9 [facility] [id number] [place] [address] 83164- 3389 May, [facility] [address] 32404- 3570 May, Type 2 diabetes mellitus with other diabetic kidney complication E11.29 and alf 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 [place] [address] 36174- 0619 Apr, Chronic pain syndrome G89.4 and Essential hypertension I10 [place] [id number] [place] [address] 01504- 3723 Apr, Type 2 diabetes mellitus with other diabetic kidney complication E11.29 [facility] [id number] [place] [address] 11424- 6767 Apr, Type 2 diabetes mellitus with other diabetic kidney complication E11.29 [place] [id number] [place] [address] 49993- 1875 Apr, Essential hypertension I10 [facility] [id number] [place] [address] 29184- 4706 Apr, Gastroesophageal reflux disease without esophagitis K21.9 [facility] [id number] [place] [address] 24864- 7604 Apr, Type 2 diabetes mellitus with other diabetic kidney complication E11.29 [facility] [id number] [place] [address] 26235- 8853 Apr, Type 2 diabetes mellitus with other diabetic kidney complication E11.29 and alf 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 [facility] [id number] [place] [address] 58695- 1495 Mar, Encounter for immunization Z23 and Preoperative examination Z01.818 [facility] [id number] [place] [address] 03457- 4383 Mar, [place] [id number] [place] [address] 42926- 2966 Mar, Type 2 diabetes mellitus with other diabetic kidney complication E11.29 [facility] [id number] [place] [address] 90343- 2546 Mar, Type 2 diabetes mellitus with other diabetic kidney complication E11.29 [place] [id number] [place] [address] 22582- 7601 Mar, Gastroesophageal reflux disease without esophagitis K21.9 [place] [id number] [place] [address] 66009- 0120 Mar, Essential hypertension I10 [place] [address] 65435- 4103 Feb, 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 [place] [id number] [place] [address] 34412- 4872 Feb, Type 2 diabetes mellitus with other diabetic kidney complication E11.29 [place] [id number] [place] [address] 25157- 6287 Feb, Type 2 diabetes mellitus with other diabetic kidney complication E11.29 [place] [id number] [place] [address] 75975- 5560 Feb, Type 2 diabetes mellitus with other diabetic kidney complication E11.29 [place] [id number] [place] [address] 35065- 4873 Feb, Gastroesophageal reflux disease without esophagitis K21.9 [facility] [id number] [place] [address] 96918- 2541 Feb, Type 2 diabetes mellitus with other diabetic kidney complication E11.29 [place] [id number] [place] [address] 73867- 1175 01 Aug, 2017 alf current use of anticoagulant Z79.01 [facility] [address], [place] [address]- 8576 Jan, 2017 Type 2 diabetes mellitus with other diabetic kidney complication E11.29 [facility] [address], [place] [address] 2546 Jan, Type 2 diabetes mellitus with other diabetic kidney complication E11.29 [facility] [id number] [place] [address] 53783- 3263 Jan, Chronic pain syndrome G89.4 [facility] [address], [place] [address]- 1522 Jan, [facility] [id number] [place] [address] 35573- 9143 Jan, [facility] [id number] [place] [address] 17355- 5898 Jan, [facility] [id number] [place] [address] 79958- 9974 Jan, [facility] [address] [place] [address] 57511- 8737 Jan, Primary insomnia F51.01 ; Type 2 diabetes mellitus with other diabetic kidney complication E11.29 ; Chronic pain syndrome G89.4 and Essential hypertension I10 [facility] [address], [place] [address]- 7410 Jan, Primary insomnia F51.01 [facility] [address], [place] [address]- 2624 Jan, Type 2 diabetes mellitus with other diabetic kidney complication E11.29 [facility] [address], [place] [address]- 4454 Jan, [facility] [address], [place] [address]- 4620 Jan, Chronic obstructive pulmonary disease, unspecified COPD type J44.9 [facility] [id number] [place] [address] 87326- 7761 Jan, Essential hypertension I10 ; Type 2 diabetes mellitus with other diabetic kidney complication E11.29 ; Chronic obstructive pulmonary disease, unspecified COPD type J44.9 ; Chronic kidney disease, stage 4 (severe) N18.4 ; Right carpal tunnel syndrome G56.01 ; 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 ; continuous improvement engineer (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 and Diabetic 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 [facility] [id number] [place] [address] 39937- 5883 Jan, Gastroesophageal reflux disease without esophagitis K21.9 [facility] [id number] [place] [address] 92369- 5976 Dec, [facility] [id number] [place] [address] 22176- 9509 Dec, [facility] [id number] [place] [address] 52356- 2517 Dec, alf current use of anticoagulant Z79.01 ; Chronic pain syndrome G89.4 and Essential hypertension I10 [facility] [id number] [place] [address] 87030- 2738 Dec, [facility] [id number] [place] [address] 63256- 6906 Dec, Type 2 diabetes mellitus with other diabetic kidney complication E11.29 [facility] [id number] [place] [address] 76402- 8943 Dec, [facility] [id number] [place] [address] 83942- 8546 Dec, Gastroesophageal reflux disease without esophagitis K21.9 [facility] [id number] [place] [address] 97082- 0395 November, Type 2 diabetes mellitus with other diabetic kidney complication E11.29 [facility] [id number] [place] [address] 76569- 7943 November, [place] [address], [place] [address]- 4085 November, Type 2 diabetes mellitus with other diabetic kidney complication E11.29 [facility] [address], [place] [address]- 6162 November, [facility] [address], [place] [address]- 4745 November, Type 2 diabetes mellitus with other diabetic kidney complication E11.29 [facility] [address], [place] [address]- 1986 November, [facility] [id number] [place] [address] 69832- 6582 Oct, Essential hypertension I10 [facility] [id number] [place] [address] 71491- 2843 Oct, Psoriasis of scalp L40.9 [facility] [id number] [place] [address] 85528- 2542 Oct, Essential hypertension I10 and Chronic pain syndrome G89.4 [facility] [address] [place] [address] 21987- 2770 Oct, [facility] [address], [place] [address]- 0323 Sep, Type 2 diabetes mellitus with other diabetic kidney complication E11.29 [facility] [address], [place] [address]- 5484 Sep, [facility] [address], [place] [address]- 2542 Sep, Type 2 diabetes mellitus with other diabetic kidney complication E11.29 [facility] [address] [address] 1776 Sep, Type 2 diabetes mellitus with other diabetic kidney complication E11.29 [facility] [address], [place] [address]- 8183 09 Mar, 2017 Type 2 diabetes mellitus with [...] extremity R20.2 and Psoriasis of scalp L40.9 [place] [id number] [place] [address] 28353- 9939 Sep, [place] [address] 02517- 5041 Aug, Essential hypertension I10 [address] [address]27- 1949 Aug, History of DVT (deep vein thrombosis) Z86.718 [place] [id number] [place] [address] 49194- 8200 Aug, [place] [address] 88476- 6137 Jul, [place] [id number] [place] [address] 27613- 9208 Jul, [place] [id number] [place] [address] 26392- 0923 Jul, 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 ; Chronic pain syndrome G89.4 and Chronic kidney disease, stage 4 (severe) N18.4 [place] [address] 70723- 7931 Jul, [place] [id number] [place] [address] 77130- 5111 Jul, [place] [address] 08739- 6524 Jul, [place] [address], [place] [address]- 7119 Jul, [place] [id number] [place] [address] 48794- 2165 Jul, [place] [id number] [place] [address] 61571- 1943 Jul, Type 2 diabetes mellitus with other diabetic kidney complication E11.29 [place] [id number] [place] [address] 62124- 0140 16 Jul, 2016 History of DVT (deep vein thrombosis) Z86.718 [place] [id number] [place] [address] 72999- 1929 Jun, [place] [id number] [place] [address] 45116- 2073 Jun, History of DVT (deep vein thrombosis) Z86.718 [place] [address] [place] [address] 68500- 6064 15 Jun, 2016 Post traumatic stress disorder (PTSD) F43.10 [place] [id number] [place] [address] 20280- 5765 07 Jun, 2016 Type 2 diabetes mellitus with other diabetic kidney complication E11.29 ; Diabetic 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 ; Iron deficiency anemia due to chronic blood loss D50.0 ; Chronic obstructive pulmonary disease, unspecified COPD type J44.9 ; 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 ; History [...] pain M79.641 and Right wrist pain M25.531 [facility] [address] [place] [id number] [place] [address]- 6720 28 May, 2016 [facility] [id number] [place] [address], [place] [address]- 1016 May, [facility] [address] [place] [address] 2541 May, [facility] [id number] [place] [address], [place] [address]- 2770 15 May, 2016 [facility] [address] [place] [address], [place] [address]- 9878 May, Anemia in other chronic diseases classified elsewhere D63.8 [facility] [address] [place] [address], [place] [address]- 6329 May, [facility] [id number] [place] [address] 85239- 5524 Apr, [facility] [address] [place] [address], [place] [address]- 1890 27 Mar, 2016 Dermatofibroma D23.9 [facility] [id number] [place] [address], [place] [address]- 8526 20 Mar, 2016 [facility] [address], [place] [address]- 2545 14 Mar, 2016 Chronic pain syndrome G89.4 [facility] [address], [place] [address] 2549 09 Mar, 2016 [facility] [address], [place] [address] 2549 07 Mar, 2015 [facility] [id number] [place] [address], [place] [address] 2546 06 Mar, 2016 [facility] [address], [place] [address] 2540 30 Feb, 2016 [facility] [address] [place] [address] 24719- 3477 Feb, [facility] [address], [place] [address]- 8392 Feb, [facility] [id number] [place] [address] 35590- 0879 Feb, [facility] [id number] [place] [address] 96767- 0742 Feb, [facility] [id number] [place] [address] 65607- 8723 Feb, [place] [id number] [place] [address] 23466- 7604 Feb, Type 2 diabetes mellitus with other diabetic kidney complication E11.29 ; Diabetic 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 ; Iron deficiency anemia due to chronic blood loss D50.0 ; Chronic obstructive pulmonary disease, unspecified COPD type J44.9 ; 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 ; History of DVT (deep vein thrombosis) Z86.718 ; Chronic pain syndrome G89.4 ; Oxygen desaturation during sleep G47.34 ; Sleep apnea in adult G47.33 ; Gastroesophageal reflux disease without esophagitis K21.9 ; Essential hypertension I10 ; Primary insomnia F51.01 ; Depression, unspecified depression type F32.9 and Renal failure, chronic, stage 4 (severe) N18.4 [facility] [id number] [place] [address] 19780- 5072 Feb, Skin tags, multiple acquired L91.8 [facility] [id number] [place] [address] 93128- 4828 Jan, [facility] [address] [place] [address] [id number] Jan, Dental examination Z01.20 [facility] [id number] [place] [address] 13444- 9913 Jan, [facility] [id number] [place] [address] 58972- 1568 Jan, Type 2 diabetes mellitus with other diabetic kidney complication E11.29 ; Diabetic 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 ; Iron deficiency anemia due to chronic blood loss D50.0 ; Chronic obstructive pulmonary disease, unspecified COPD type J44.9 ; 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 ; History of DVT (deep vein thrombosis) Z86.718 ; Chronic pain syndrome G89.4 ; Oxygen desaturation during sleep G47.34 ; Sleep apnea in adult G47.33 ; Gastroesophageal reflux disease without esophagitis K21.9 ; Essential hypertension I10 ; Primary insomnia F51.01 ; Depression, unspecified depression type F32.9 ; Skin lesion L98.9 and Renal failure, chronic, stage 4 (severe) N18.4 [facility] [id number] [place] [address] 77145- 1096 Dec, Diabetes type 2, uncontrolled E11.[address] 15469- 0204 Dec, [address] 37690- 0378 Dec, Type 2 diabetes mellitus with other [...] F51.01 and Depression, unspecified depression type F32.9 [facility] [id number] [place] [address] [id number] Dec, Dental caries K02.9 [facility] [id number] [place] [address] [id number] Dec, [facility] [address] [place] [address] [id number] Dec, Dental examination Z01.20 [facility] [address] [id number] [id number] November, Dental examination Z01.20 and Dental caries K02.9 [facility] [id number] [place] [address] [id number] Oct, [facility] [address] [id number] [place] [id number] Oct, [facility] [id number] [place] [address] [id number] Sep, [facility] [address] [id number] [place] [address] [id number] Sep, [facility] [id number] [place] [address] [id number] Sep, [facility] [id number] [place] [address] [id number] Sep, Other chronic pain 338.29 [facility] [id number] [place] [address] [id number] Aug, Diabetes type 2, uncontrolled E11.65 and Morbid obesity due to excess calories E66.01 [facility] [address] [id number] [place] [id number] Aug, Hair loss L65.9 [facility] [id number] [place] [address] [id number] Aug, [facility] [id number] [place] [address] [id number] Jul, [facility] [id number] [place] [address] [id number] Jul, [facility] [id number] [place] [address] [id number] Jun, [facility] [address] [id number] [place] [address] [id number] Jun, Hair loss L65.9 and Disorder of the skin and subcutaneous tissue, unspecified L98.9 [facility] [address] [id number] [place] [id number] May, Type 2 diabetes mellitus with other diabetic kidney complication E11.29 ; Type 2 diabetes mellitus with hyperglycemia E11.65 ; Morbid obesity due to excess calories E66.01 and Essential hypertension I10 [facility] [id number] [place] [address] [id number] May, Diabetes type 2, uncontrolled E11.65 ; Encounter for immunization Z23 and Morbid obesity due to excess calories E66.01 [facility] [id number] [place] [address] [id number] May, [facility] [address] [address]- [address] Apr, [facility] [id number] [place] [address] [id number] Apr, Hyperglycemia R73.[address] [id number] Apr, [id number] [place] [address] [id number] Apr, Depression F32.9 ; Encounter for immunization Z23 ; Hyperglycemia R73.9 and Anemia in other chronic diseases classified elsewhere D63.8 [facility] [address] [id number] [address] Mar, [id number] [place] [address] [id number] Feb, Positive occult stool blood test 792.1 [id number] [place] [address] [id number] Feb, Depression 311 ; Other chronic pain 338.29 and Diabetes with renal manifestations, type II or unspecified type, not stated as uncontrolled 250.40 [facility] [address]005[place] [address] [address] Feb, Occult blood in stools 792.1 [id number] [place] [address] [id number] Feb, Anemia 285.9 ; Occult blood positive stool 792.1 ; Unspecified essential hypertension 401.9 and Other chronic pain 338.29 [id number] [place] [address] [id number] Feb, [address] [id number] [place] [address] [id number] Feb, Anemia 285.9 [facility] [place] [id number] [place] [id number] Feb, [facility] [place] [id number] [place] [address] [id number] Feb, [facility] [place] [id number] [place] 8[address]6952 Feb, Diabetes with renal manifestations, type II or unspecified type, not stated as uncontrolled 250.40 ; Other chronic pain 338.29 ; Unspecified essential hypertension 401.9 ; Anemia 285.9 and Depression 311 [facility] [place] [id number] [place] [id number] Jan, [facility] [place] [id number] [place] [address] [id number] Jan, Anemia 285.9 and Follow up V67.9 [facility] [place] [id number] [place] [id number] Jan, [facility] [place] [id number] [place] [address] [id number] Jan, [facility] [place] [id number] [place] [id number] Jan, [facility] [place] [place] [id number] [place] [address] [id number] Dec, [facility] [address]00565100[place], [place] [address] 8[address] Oct, [facility] [id number] [place] [address] 24540 2546 Oct, [facility] [address]00565100[place], [place] [address] 6[address] Sep, [facility] [id number] [place] [id number] Sep, [facility] [id number] [place] [address] 64764 2546 Sep, [facility] [address] [id number] [place] [id number] Aug, [facility] [place] [facility] [address] [facility] [id number], [place] [address]476 Aug, 2014 [facility] [place] [facility] [address] [facility] [id number], [place] [address] Aug, [facility] [place] [address] [facility] [id number] [place] [id number] Aug, [facility] [place] [facility] [address] [facility] [id number] [place] [address]- 8115 Aug, [facility] [place] [facility] [address] [facility] [id number], [place] [address]- 4177 Aug, [facility] [place] [address] [facility] [id number] [place] [id number] Aug, [facility] [place] [facility] [address]00565100[place], [place] [address]- 7377 Aug, [facility] [place] [id number] [place] [id number] Jul, [facility] [place] [facility] [address] [facility] [id number], [place] [address]- 7460 Jul, [facility] [place] [facility] [address]00565100[place], [place] [address]- 0984 Jul, [facility] [place] [address] [facility] [id number] [place] [id number] Jul, [facility] [place] [facility] [address] [facility] [id number], [place] [address]- 0562 Jul, [facility] [place] [address] [facility] [id number] [place] [id number] Jul, [facility] [place] [facility] [address] [facility] [id number], [place] [address]- 2546 Jul, [facility] [place] [address] [facility] [id number] [place] [id number] Jun, [facility] [place] [address] [facility] [id number] [place] [id number] Jun, [facility] [place] [facility] [address] [id number], [place] [address]- 6836 Jun, [facility] [place] [facility] [address] [id number] [place] [address]- 0947 Jun, [facility] [place] [address] [id number] [place] [id number] Jun, [facility] [place] [facility] [address] [facility] [id number], [place] [address]- 7336 Jun, [facility] [address] [id number] [place] [id number] May, [facility] [place] [facility] [address] [facility] [id number] [place] [address]- 2848 May, [facility] [place] [facility] [address] [facility] [id number] [place] [address]- 6896 May, [facility] [place] [address] [facility] [id number] [place] 989115214 Apr, [facility] [place] [facility] [address] [facility] [id number], [place] [address]- 3171 Apr, [facility] [address] [id number] [place] [id number] Apr, [facility] [address] [id number] [place] [id number] Apr, [facility] [place] [facility] [address] [facility] [id number], [place] [address]- 7660 Apr, [facility] [place] [facility] [address] [facility] [id number], [place] [address]- 0851 Apr, [facility] [address] [id number] [place] [id number] Mar, [facility] [place] [facility] [address] [id number], [place] [address]- 6029 Mar, [facility] [place] [address] [facility] [id number] [place] [id number] Mar, [facility] [place] [facility] [address] [facility] [id number], [place] [address]- 4973 Mar, [facility] [address] [id number] [place] [id number] Mar, [facility] [place] [facility] [address] [id number] [place] [address]- 9625 Mar, [facility] [address] [id number] [place] [id number] Mar, [facility] [place] [facility] [address] [facility] [id number] [place] [address]- 4267 Mar, [facility] [address] [id number] [place] [id number] Mar, [facility] [place] [facility] [address] [id number] [place] [address]- 6807 Mar, [facility] [address] [id number] [place] [id number] Feb, [facility] [place] [facility] [address] [facility] [id number], [place] 382337- 8593 Feb, [facility] [place] [address] [facility] [id number] [place] [id number] Jan, [facility] [place] [facility] [address] [facility] [id number], [place] [address]- 8946 Jan, [facility] [place] [address] [facility] [id number] [place] [id number] Jan, [facility] [place] [facility] [address] [facility] [id number], [place] [address]- 9285 Jan, [facility] [address] [facility] [id number] [place] [id number] Jan, [facility] [place] [facility] [address] [facility] [id number], [place] [address]- 4085 Jan, [facility] [place] [facility] [address] [facility] [id number] [place] [address]- 9531 Dec, [facility] [place] [facility] [address] [facility] [id number] [place] 22698491- 8893 Dec, [facility] [address] [id number] [place] 858478099 November, [facility] [place] [facility] [address] [facility] [id number] [place] [address]- 1377 November, [facility] [address] [facility] [id number] [place] 028473287 November, [facility] [place] [facility] [address] [facility] [id number] [place] [address]- 1274 November, [facility] [address] [facility] [id number] [place] [id number] Oct, [facility] [place] [facility] [address] [facility] [id number] [place] [address]- 9722 Oct, [facility] [place] [facility] [address] [facility] [id number] [place]- 8229 Oct, [facility] [place] [facility] [address] [facility] [id number] [place] [address]- 4951 Oct, [facility] [place] [facility] [address] [id number] [place] [address]- 3166 Oct, [facility] [place] [facility] [address] [facility] [id number] [place] [address]- 7372 Oct, [facility] [place] [address] [facility] [id number] [place] [id number] Sep, [facility] [place] [address] [facility] [id number] [place] 686199639 Sep, [facility] [place] [facility] [address] [facility] [id number], [place] [address]- 7675 Sep, [facility] [place] [facility] [address] [facility] [id number], [place] [address]- 7888 Sep, [facility] [place] [address] [facility] [id number] [place] [id number] Sep, [facility] [place] [facility] [address] [facility] [id number] [place] 8316 Sep, [facility] [place] [facility] [address] [facility] [id number], [place] [address]- 0868 Aug, [facility] [place] [facility] [address] [facility] [id number], [place] [address]- 6516 Aug, [facility] [address] [id number] [place] 959157792 Aug, [facility] [address] [facility] [id number] [place] [id number] Aug, [facility] [place] [facility] [address] [facility] [id number] [place] [address]- 3496 Aug, [facility] [address] [facility] [id number] [place] [id number] Aug, [facility] [place] [facility] [address] [facility] [id number] [place] [address]- 7353 Aug, [facility] [address] [facility] [id number] [place] 536890442 Aug, [facility] [place] [facility] [address]00565100[place], [place] [address]- 7124 Aug, [facility] [address] [facility] [id number] [place] [id number] Aug, [facility] [place] [facility] [address] [id number], [place] [address]- 1220 Aug, [facility] [address] [facility] [id number] [place] 316214133 Aug, [facility] [place] [facility] [address]00565100[place], [place] [address]- 7165 Aug, [facility] [place] [facility] [address]00565100[place], [place] [address]- 5811 Jul, [facility] [address] [facility] [id number] [place] 852160114 Jun, [facility] [place] [facility] [address] [facility] [id number] [place] [address]- 6287 Jun, [facility] [place] [facility] [address] [id number] 294[place]- 9845 Jun, [facility] [place] [facility] [address] [id number], [place] [address]- 9566 Jun, [facility] [place] [address] [facility] [id number] [place] 690264982 Jun, [facility] [place] [facility] [address] [facility] [id number] [place] [address] 2546 Jun, [facility] [place] [facility] [address] [facility] [id number], [place] [address]- 2546 Jun, [facility] [place] [address] [facility] [id number] [place] [id number] Jun, [facility] [place] [facility] [address] [facility] [id number], [place] [address]- 2546 Jun, [facility] [place] [facility] [address]100[facility] [place] [address]- 0756 May, [facility] [place] [address] [id number] [place] 222739773 May, [facility] [place] [facility] [address]00565100[place], [place] [address]- 2975 May, [facility] [place] [facility] [address] [id number], [place] [address]- 8460 May, [facility] [place] [facility] [address]00565100[place], [place] [address]- 3734 May, [facility] [place] [facility] [address]00565100[place], [place] [address]- 0660 May, [facility] [place] [address] [facility] [id number] [place] [id number] May, [facility] [place] [facility] [address] [facility] [id number], [place] [address]- 2546 May, [facility] [place] [address] [facility] [id number] [place] 163442331 May, [facility] [place] [facility] [address] [id number], [place] [address]- 1856 May, [facility] [place] [address] [facility] [id number] [place] [id number] Apr, [facility] [place] [facility] [address] [facility] [id number], [place] [address]- 1794 Apr, [facility] [address] [id number], [place] [address]- 3471 Apr, [facility] [address] [facility] [id number] [place] [id number] Apr, [facility] [place] [facility] [address] [facility] [id number], [place] [address]- 2803 Apr, [facility] [place] [facility] [address] [id number], [place] [address]- 1932 Apr, [facility] [address] [facility] [id number] [place] [id number] Apr, [facility] [place] [facility] [address] [id number], [place] 8437[place]- 8888 Apr, [facility] [place] [facility] [address] [id number], [place] [address]- 7943 Apr, [facility] [place] [facility] [address] [facility] [id number], [place] [address]- 9247 Apr, [facility] [address] [facility] [id number] [place] [id number] Apr, [facility] [place] [facility] [address] [facility] [id number], [place] [address]- 0901 Apr, [facility] 120 [facility] [id number] [place] [id number] Apr, [facility] [place] [facility] [address] [facility] [id number], [place] [address]- 7687 Apr, [facility] 120 [facility] [id number] [place] 751475592 Apr, [facility] [place] [facility] [address] [facility] [id number], [place] [address]- 0786 Apr, [facility] [place] [facility] [address] [facility] [id number], [place] [address]- 1989 Apr, [facility] [place] [facility] [address] [facility] [id number], [place] [address]- 9724 Apr, [facility] [place] [address] [id number] [place] [id number] Apr, [facility] [address] [facility] [id number], [place] [address]- 0113 Mar, [facility] [address] [facility] [id number] [place] [address]- 5267 Mar, [facility] [place] [address] [id number] [place] 141082919 Mar, [facility] [place] [address] [id number] [place] 065868602 Mar, [facility] [place] [address] [id number] [place] 389309183 Mar, [facility] [place] [address] [id number] [place] [id number] Feb, [facility] [place] [address] [id number] [place] 004521748 Feb, [facility] [place] [address] [id number] [place] [id number] Feb, [facility] [address] [facility] [id number], [place] [address]- 1878 Feb, [facility] [place] [address] [id number] [place] 193899303 Feb, [facility] [place] [address] [id number] [place] 843760777 Feb, [facility] [place] [address] [id number] [place] 667032446 Feb, [facility] [place] [address] [id number] [place] 180872217 Feb, [facility] [place] [address] [id number] [place] 019243774 Feb, [facility] [place] [address] [id number] [place] 326938118 Jan, [facility] [place] [address] [id number] [place] 961027601 Jan, [facility] [place] [address] [id number] [place] 092752069 Jan, [facility] [place] [address] [id number] [place] 936870024 Jan, [facility] [place] [address] [id number] [place] 469486408 Jan, [facility] [address] [id number] [place] [address]- 1106 Jan, [facility] [place] [address] [id number] [place] 416779006 Jan, [facility] [place] [address] [id number] [place] 452034078 Jan, [facility] [place] [address] [id number] [place] 733158215 Dec, [facility] [place] [address] [id number] [place] 128881011 November, [facility] [place] [address] [id number] [place] 622000624 November, [facility] [place] [address] [id number] [place] 308615786 November, [facility] [place] [address] [id number] [place] 616143970 November, [facility] [place] [address] [id number] [place] 091004772 November, [facility] [place] [address] [id number] [place] 401697405 November, [facility] [address] [id number] [place] 083309630 Jul, [facility] [place] [address] [id number] [place] 137574234 Jul, [facility] [place] [address] [id number] [place] 504503965 Jul, [facility] [place] [address] [id number] [place] 705678586 Jun, [facility] [address] [id number] [place] [address]- 6276 Jun, [facility] [place] [address] [id number] [place] 427638416 May, [facility] [place] [facility] [address] [facility] [id number], [place] [address]- 4587 May, [facility] [place] [address] [facility] [id number] [place] [id number] May, [facility] [place] [facility] [address] [facility] [id number], [place] [address]- 2363 May, [facility] [place] [address] [facility] [id number] [place] 385412582 May, [facility] [place] [facility] [address] [facility] [id number], [place] [address]- 4032 May, [facility] [place] [address] [facility] [id number] [place] [id number] Apr, [facility] [place] [facility] [address]00565100[place], [place] [address]- 4125 Apr, [facility] [place] [facility] [address] [place] [address] 826[address]- 9688 Apr, [facility] [place] [address] [facility] [id number] [place] [id number] Apr, [facility] [address] [facility] [id number] [place] [id number] Apr, [facility] [place] [facility] [address]00565100[place], [place] [address]- 7848 Apr, [facility] [place] [facility] [address] [facility] [id number], [place] [address]- 8384 Apr, [facility] [address] [id number] [place] 816402989 Apr, [facility] [place] [facility] [address] [facility] [id number], [place] [address]- 5492 Apr, [facility] [address] [id number] [place] 899455661 Apr, [facility] [address] [id number] [place] 005917636 Apr, [facility] [place] [address] [id number] [place] 076397787 Mar, [facility] [place] [address] [id number] [place] [id number] Feb, [facility] [place] [address] [id number] [place] 761584740 Jan, [facility] [place] [address] [id number] [place] 151240882 Dec, [facility] [place] [address] [id number] [place] [id number] Dec, [facility] [place] [address] [id number] [place] 153756790 Dec, [facility] [place] [address] [id number] [place] [id number] Dec, [facility] [place] [address] [id number] [place] [id number] Dec, [facility] [place] [address] [id number] [place] [id number] November, [facility] [place] [address] [id number] [place] [id number] November, [facility] [place] [address] [id number] [place] [id number] November, [facility] [id number] [address] November, [facility] [place] [address] [id number] [place] [id number] November, [facility] [place] [address] [id number] [place] [id number] November, [facility] [place] [address] [id number] [place] [id number] Oct, [facility] [place] [address] [id number] [place] [id number] Oct, [facility] [place] [address] [id number] [place] [id number] Oct, [facility] [place] [address] [id number] [place] [id number] Oct, [facility] [place] [address] [id number] [place] [id number] Oct, [facility] [place] [address] [id number] [place] [id number] Oct, [facility] [place] [address] [id number] [place] [id number] Sep, [facility] [place] [address] [id number] [place] [id number] Aug, [facility] [place] [address] [id number] [place] [id number] Aug, [facility] [place] [address] [id number] [place] [id number] Jul, [facility] [place] [facility] [id number] [place] [address] Jun, [facility] [place] [facility] [id number] [place] [address], [place] [address] Jun, [facility] [place] [facility] [id number] [place] [id number] Jun, [facility] [place] [facility] [id number] [place] [address]- [address] Jun, [facility] [place] [facility] [id number], [place] [address] May, [facility] [place] [facility] [id number] [place] [address] May, [facility] [place] [facility] [id number], [place] [address] Apr, [facility] [place] [facility] [id number], [place] [address] Apr, [facility] [place] [facility] [address] [facility] [id number] [address] Apr, [facility] [place] [facility] [id number] [place] [address]- [address] Feb, [facility] [place] [facility] [address] [facility] [id number], [place] [address] 15 Aug, 2010 [facility] [place] [facility] [id number] [place] [address] Jul, [facility] [place] [facility] [address] [id number] [place] [address] 30 Jun, 2010 [facility] [place] [facility] [address] [id number] [place] [address] 2546 May, [facility] [place] [facility] [address] [id number] [place] [address] 2546 May, [facility] [place] [facility] [address] [id number] [place] [address] 2548 May, [facility] [place] [facility] [address] [id number] [place] [address] May, [facility] [place] [facility] [address] [id number] [place] [address] 2549 May, [facility] [place] [facility] [address] [id number] [place] [address] Aug, [facility] [place] [facility] [address] [id number] [place] [address] Jun, [facility] [place] [facility] [address] [id number] [place] [address] Jun, [facility] [place] [facility] [address] [id number] [place] [address] Jun, [facility] [place] [facility] [address] [id number], [place] [address] 24 May, 2009 [facility] [place] [facility] [address] [id number], [place] [address]43 28 Apr, 2009 [facility] [place] [facility] [address] [id number] [place] [address]47 27 Apr, 2009 [facility] [place] [facility] [address] [id number], [place] [address] 15 Apr, 2009 [facility] [place] [facility] [address] [id number] [place] [address] 2546 Jan, [facility] [place] [facility] [address] [facility] [id number] [place] [address] Oct, [facility] [address] [facility] [id number] [place] [address] May, [facility] [address] [facility] [id number] [place] [address] May, IMMUNIZATIONS No Known Immunizations SOCIAL HISTORY [...] Dialysis [facility] 2012 -Dr. Simon now [facility] Medical History Colonoscopy (polyps 2 ) [...]
--- OUTSIDE RECORDS SUMMARY | 2017-12-22 19:23 | XMS REPORT ---
Author Author CHELSY VILLAFANA Organization [facility] Address [address] [place] [address] Care Team Providers Care Shellfish Checker Name Role Phone CHELSY VILLAFANA Unavailable PROBLEMS Type Condition ICD9-CM Code FME69-PJ Code Onset Dates Condition Status SNOMED Code Problem Chronic pain syndrome G89.4 Active 798787874 Problem Type 2 diabetes mellitus with hyperglycemia E11.65 Active 781973177940590 Problem Primary insomnia F51.01 Active 8929861 Problem Bilateral lower extremity edema R60.0 Active 071949873 Problem Anemia in other chronic diseases classified elsewhere D63.8 Active 854768439 Problem Supplemental oxygen dependent Z99.81 Active 101607805093 Problem Right carpal tunnel syndrome G56.01 Active 310364321957699 Problem 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 Active 345990917530708 Problem Paresthesia of right upper extremity R20.2 Active 12792948 Problem Chronic kidney disease, stage 4 (severe) N18.4 Active 917959122 Problem 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 Active 641922123 Problem Psoriasis of scalp L40.9 Active 686144888 Problem Gastroesophageal reflux disease without esophagitis K21.9 Active 398017450 Problem Chronic obstructive pulmonary disease, unspecified COPD type J44.9 Active 35525319 Problem Type 2 diabetes mellitus with other diabetic kidney complication E11.29 Active 869960436 Problem Diabetic 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 Active 18542416 Problem History of DVT (deep vein thrombosis) Z86.718 Active 958550530 Problem longterm current use of anticoagulant Z79.01 Active 810458103 Problem Oxygen desaturation during sleep G47.34 Active 114382000 Problem Essential hypertension I10 Active 66216578 Problem Depression, unspecified depression type F32.9 Active 97370704 Problem Sleep apnea in adult G47.33 Active [id number] ALLERGIES No Information ENCOUNTERS Encounter Location Date Diagnosis [facility] [id number] [id number] Dec, [facility] [address] [address] Dec, Essential hypertension I10 [facility] [address] [address] November, Type 2 diabetes mellitus with other diabetic kidney complication E11.29 [facility] [id number] [address] November, Chronic pain syndrome G89.4 [facility] [address] [address] 29[address] November, [facility] [address] [place] [address] 34845- 5409 November, [facility] [id number] [place] [address] 63818- 7422 November, [facility] [id number] [place] [address] 78428- 4355 Oct, Type 2 diabetes mellitus with other diabetic kidney complication E11.29 [facility] [address] [address] 0963 Oct, Primary insomnia F51.01 [facility] [id number] [id number] Oct, Bilateral lower extremity edema R60.0 [facility] [address] [address] Oct, [facility] [address] [address] Sep, Type 2 diabetes mellitus with other diabetic kidney complication E11.29 and Chronic obstructive pulmonary disease, unspecified COPD type J44.9 [facility] [address] [address] 26[address] Aug, Type 2 diabetes mellitus with other diabetic kidney complication E11.29 [facility] [id number] [address] 2068 12 Aug, 2017 Gastroesophageal reflux disease without esophagitis K21.9 ; 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 ; Chronic pain syndrome G89.4 ; Essential hypertension I10 and Type 2 diabetes mellitus with other diabetic kidney complication E11.29 [facility] [address] [place] [address] 15918- 9571 08 Aug, 2017 Chronic pain syndrome G89.4 [facility] [id number] [place] [address] 27251- 3745 Aug, Type 2 diabetes mellitus with other diabetic kidney complication E11.29 [facility] [id number] [place] [address] 18775- 3590 Jul, Diabetic 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 [facility] [id number] [place] [address] 81818- 4858 Jul, Primary insomnia F51.01 [facility] [id number] [place] [address] 15650- 3891 Jul, [facility] [id number] [place] [address] 13415- 0090 Jul, Type 2 diabetes mellitus with other diabetic kidney complication E11.29 and Chronic obstructive pulmonary disease, unspecified COPD type J44.9 [facility] [address] [place] [address] 09505- 8270 Jul, Type 2 diabetes mellitus with other diabetic kidney complication E11.29 [facility] [id number] [place] [address] 89051- 3755 Jun, Type 2 diabetes mellitus with other diabetic kidney complication E11.29 [facility] [id number] [place] [address] 60305- 7716 Jun, [facility] [address] [place] [address] 81930- 1862 Jun, Chronic obstructive pulmonary disease, unspecified COPD type J44.9 [facility] [place] [address] [id number] [place] [address] 00530- 1704 May, Type 2 diabetes mellitus with other diabetic kidney complication E11.29 [place] [id number] [place] [address] 14250- 5504 May, 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 and Essential hypertension I10 [address] [address]- [address] May, Anemia in other chronic diseases classified elsewhere D63.8 ; Chronic obstructive pulmonary disease, unspecified COPD type J44.9 ; Oxygen desaturation during sleep G47.34 ; Sleep apnea in adult G47.33 and Supplemental oxygen dependent Z99.[address] [address]88- 5532 May, Type 2 diabetes mellitus with other diabetic kidney complication E11.29 ; Essential hypertension I10 ; Chronic pain syndrome G89.4 ; BMI 40.0-44.9, adult Z68.41 ; Gastroesophageal reflux disease without esophagitis K21.9 ; 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 ; longterm 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 ; Diabetic 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 ; Edema of both legs R60.0 and Supplemental oxygen dependent Z99.81 [place] [id number] [place] [address] 00877- 0685 May, [place] [id number] [place] [address] 11352- 0425 May, Essential hypertension I10 and Gastroesophageal reflux disease without esophagitis K21.9 [place] [id number] [place] [address] 23843- 9182 May, [place] [id number] [place] [address] 39948- 5875 May, Type 2 diabetes mellitus with other diabetic kidney complication E11.29 and longterm current use of anticoagulant Z79.01 [place] [id number] [place] [address] 63660- 4951 Apr, Chronic pain syndrome G89.4 and Essential hypertension I10 [facility] [id number] [place] [address] 44961- 7363 Apr, Type 2 diabetes mellitus with other diabetic kidney complication E11.29 [facility] [id number] [place] [address] 07833- 5509 Apr, Type 2 diabetes mellitus with other diabetic kidney complication E11.29 [facility] [facility] [id number] [place] [address] 55207- 7839 Apr, Essential hypertension I10 [place] [id number] [place] [address] 44351- 2572 Apr, Gastroesophageal reflux disease without esophagitis K21.9 [facility] [id number] [place] [address] 53446- 3567 Apr, Type 2 diabetes mellitus with other diabetic kidney complication E11.29 [facility] [id number] [place] [address] 38750- 4095 Apr, Type 2 diabetes mellitus with other diabetic kidney complication E11.29 and 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 [place] [id number] [place] [address] 21786- 7181 Mar, Encounter for immunization Z23 and Preoperative examination Z01.818 [facility] [facility] [id number] [place] [address] 63702- 3204 Mar, [facility] [id number] [place] [address] 54434- 7346 Mar, Type 2 diabetes mellitus with other diabetic kidney complication E11.29 [place] [facility] [id number] [place] [address] 73741- 9789 Mar, Type 2 diabetes mellitus with other diabetic kidney complication E11.29 [facility] [id number] [place] [address] 34540- 8520 Mar, Gastroesophageal reflux disease without esophagitis K21.9 [facility] [id number] [place] [address] 69729- 5013 Mar, Essential hypertension I10 [facility] [address] [place] [address] 51064- 9792 Feb, 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 [facility] [address] [place] [address] 77910- 2350 Feb, Type 2 diabetes mellitus with other diabetic kidney complication E11.29 [facility] [id number] [place] [address] 86170- 2574 Feb, Type 2 diabetes mellitus with other diabetic kidney complication E11.29 [facility] [id number] [place] [address] 80512- 8205 Feb, Type 2 diabetes mellitus with other diabetic kidney complication E11.29 [facility] [id number] [place] [address] 66475- 4741 Feb, Gastroesophageal reflux disease without esophagitis K21.9 [facility] [id number] [place] [address] 47344- 8942 Feb, Type 2 diabetes mellitus with other diabetic kidney complication E11.29 [facility] [id number] [place] [address] 49044- 8364 Feb, 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 [facility] [address] [address]- 0081 Jan, Type 2 diabetes mellitus with other diabetic kidney complication E11.29 [facility] [address] [address]- 6471 Jan, Type 2 diabetes mellitus with other diabetic kidney complication E11.29 [facility] [address] [place] [address] 70155- 2579 Jan, Chronic pain syndrome G89.4 [facility] [address] [address]- 4497 Jan, [facility] [id number] [place] [address] 56751- 1618 Jan, [facility] [address] [address]- 1298 Jan, [facility] [address] [address]- 2234 Jan, [facility] [address] [address]- 0257 Jan, Primary insomnia F51.01 ; Type 2 diabetes mellitus with other diabetic kidney complication E11.29 ; Chronic pain syndrome G89.4 and Essential hypertension I10 [facility] [address] [address]- 5157 Jan, Primary insomnia F51.01 [facility] [address] [address]- 1932 Jan, Type 2 diabetes mellitus with other diabetic kidney complication E11.29 [facility] [address] [address]- 6036 Jan, [facility] [address] [address]- 4381 Jan, Chronic obstructive pulmonary disease, unspecified COPD type J44.9 [facility] [address] [address]- 0809 Jan, Essential hypertension I10 ; Type 2 diabetes mellitus with other diabetic kidney complication E11.29 ; Chronic obstructive pulmonary disease, unspecified COPD type J44.9 ; Chronic kidney disease, stage 4 (severe) N18.4 ; Right carpal tunnel syndrome G56.01 ; 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 ; 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 termite (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 and Diabetic 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 [facility] [address] [address]- 6540 Jan, Gastroesophageal reflux disease without esophagitis K21.9 [facility] [address] [address]- 2947 Dec, [facility] [address] [address]- 4127 Dec, [facility] [id number] [place] [address] 88581- 0204 Dec, longterm current use of anticoagulant Z79.01 ; Chronic pain syndrome G89.4 and Essential hypertension I10 [facility] [id number] [place] [address] 29773- 0346 Dec, [facility] [id number] [place] [address] 50914- 8862 Dec, Type 2 diabetes mellitus with other diabetic kidney complication E11.29 [facility] [id number] [place] [address] 95397- 8295 Dec, [facility] [id number] [place] [address] 31398- 6178 Dec, Gastroesophageal reflux disease without esophagitis K21.9 [facility] [id number] [place] [address] 29525- 0983 November, Type 2 diabetes mellitus with other diabetic kidney complication E11.29 [facility] [address] [address]- 1684 November, [facility] [address] [place] [address] 54424- 7019 November, Type 2 diabetes mellitus with other diabetic kidney complication E11.29 [facility] [address] [address]- 4612 November, [facility] [address] [address]- 9933 November, Type 2 diabetes mellitus with other diabetic kidney complication E11.29 [facility] [address] [address]- 3481 November, [facility] [address] [address]- 4929 Oct, Essential hypertension I10 [place] [address] [place] [address] 25454- 4813 10 Oct, 2016 Psoriasis of scalp L40.9 [place] [id number] [place] [address] 82872- 8137 Oct, Essential hypertension I10 and Chronic pain syndrome G89.4 [place] [id number] [place] [address] 72009- 8412 Oct, [place] [id number] [place] [address] 88365- 8322 Sep, Type 2 diabetes mellitus with other diabetic kidney complication E11.29 [facility] [id number] [place] [address] 95583- 9003 Sep, [place] [id number] [place] [address] 46622- 8476 Sep, Type 2 diabetes mellitus with other diabetic kidney complication E11.29 [place] [id number] [place] [address] 48038- 0398 Sep, Type 2 diabetes mellitus with other diabetic kidney complication E11.29 [place] [id number] [place] [address] 55750- 5108 Sep, Type 2 diabetes mellitus with other diabetic kidney complication E11.29 ; Chronic kidney disease, stage 4 (severe) N18.4 ; Chronic obstructive pulmonary disease, unspecified COPD type J44.9 ; Iron deficiency anemia due to chronic blood loss D50.0 ; 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 ; Gastroesophageal reflux disease without esophagitis K21.9 ; Essential hypertension I10 ; Primary insomnia F51.01 ; Depression, unspecified depression type F32.9 ; Chronic pain syndrome G89.4 ; Wrist pain, right M25.531 ; Paresthesia of right upper extremity R20.2 and Psoriasis of scalp L40.[address] [place] [address] 36731- 8771 Sep, [place] [id number] [place] [address] 72524- 6744 Aug, Essential hypertension I10 [facility] [id number] [place] [address] 23703- 7912 Aug, History of DVT (deep vein thrombosis) Z86.718 [facility] [id number] [place] [address] 70873- 5656 14 Aug, 2016 [facility] [address] 32857- 7865 Jul, [facility] [id number] [place] [address] 80151- 2317 Jul, [facility] [address] 14138- 2196 Jul, 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 ; Chronic pain syndrome G89.4 and Chronic kidney disease, stage 4 (severe) N18.4 [facility] [id number] [place] [address] 85500- 6764 Jul, [facility] [id number] [place] [address] 34823- 6521 Jul, [facility] [id number] [place] [address] 41068- 9277 Jul, [facility] [id number] [place] [address] 56865- 1058 Jul, [facility] [id number] [place] [address] 77222- 3766 Jul, [facility] [id number] [place] [address] 74625- 8266 Jul, Type 2 diabetes mellitus with other diabetic kidney complication E11.29 [facility] [id number] [place] [address] 04546- 7740 Jul, History of DVT (deep vein thrombosis) Z86.718 [facility] [id number] [place] [address] 42146- 1102 Jun, [place] [address] [address]- 3254 19 Jun, 2016 History of DVT (deep vein thrombosis) Z86.718 [place] [address] [place] [address] 69591- 0355 15 Jun, 2016 Post traumatic stress disorder (PTSD) F43.10 [place] [id number] [place] [address] 00807- 7202 07 Jun, 2016 Type 2 diabetes mellitus with other diabetic kidney complication E11.29 ; Diabetic 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 ; Iron deficiency anemia due to chronic blood loss D50.0 ; Chronic obstructive pulmonary disease, unspecified COPD type J44.9 ; longterm current use of anticoagulant Z79.01 ; History [...] pain M79.641 and Right wrist pain M25.531 [place] [address] [place] [address] 97806- 3522 May, [place] [address] [place] [address] 56505- 9189 May, [place] [id number] [place] [address] 86302- 1048 May, [place] [id number] [place] [address] 28106- 6923 May, [place] [address] [place] [address] 11739- 0780 May, Anemia in other chronic diseases classified elsewhere D63.8 [place] [address] [place] [address]- 1089 02 May, 2016 [facility] [address] [facility] [id number] [place] [address]- 3269 Apr, [facility] [id number] [place] [address] 2546 27 Mar, 2015 Dermatofibroma D23.9 [facility] [address] [place] [address] 2546 20 Mar, 2015 [facility] [address] [facility] [id number] [place] [address] 2548 14 Mar, 2015 Chronic pain syndrome G89.4 [facility] [address] [place] [address] 2546 09 Mar, 2015 [facility] [address] [place] [address]- 5639 07 Mar, 2015 [facility] [address] [address]- 7970 06 Mar, 2015 [facility] [id number] [place] [address]- 3854 30 Feb, 2016 [facility] [id number] [place] [address]- 4828 Feb, [facility] [id number] [place] [address]- 2900 Feb, [facility] [id number] [address]- 9521 Feb, [facility] [address] [facility] [id number] [place] [address]- 2548 Feb, [facility] [id number] [place] [address]- 8955 15 Feb, 2016 [facility] [id number] [place] [address]- 8782 Feb, 2016 Type 2 diabetes mellitus with other diabetic kidney complication E11.29 ; Diabetic 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 ; Iron deficiency anemia due to chronic blood loss D50.0 ; Chronic obstructive pulmonary disease, unspecified COPD type J44.9 ; longterm current use of anticoagulant Z79.01 ; History of DVT (deep vein thrombosis) Z86.718 ; Chronic pain syndrome G89.4 ; Oxygen desaturation during sleep G47.34 ; Sleep apnea in adult G47.33 ; Gastroesophageal reflux disease without esophagitis K21.9 ; Essential hypertension I10 ; Primary insomnia F51.01 ; Depression, unspecified depression type F32.9 and Renal failure, chronic, stage 4 (severe) N18.4 [place] [address] 49567- 0568 Feb, Skin tags, multiple acquired L91.8 [place] [address] 46640- 4681 Jan, [facility] [address] [id number] Jan, Dental examination Z01.20 [facility] [address] 87097- 5239 Jan, [place] [address] 31692- 5204 Jan, Type 2 diabetes mellitus with other diabetic kidney complication E11.29 ; Diabetic 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 ; Iron deficiency anemia due to chronic blood loss D50.0 ; Chronic obstructive pulmonary disease, unspecified COPD type J44.9 ; longterm current use of anticoagulant Z79.01 ; History of DVT (deep vein thrombosis) Z86.718 ; Chronic pain syndrome G89.4 ; Oxygen desaturation during sleep G47.34 ; Sleep apnea in adult G47.33 ; Gastroesophageal reflux disease without esophagitis K21.9 ; Essential hypertension I10 ; Primary insomnia F51.01 ; Depression, unspecified depression type F32.9 ; Skin lesion L98.9 and Renal failure, chronic, stage 4 (severe) N18.4 [place] [address] 22399- 4434 Dec, Diabetes type 2, uncontrolled E11.65 [facility] [address] [address]- 8932 Dec, [facility] [address] [address]- 8771 Dec, Type 2 diabetes mellitus with other diabetic kidney complication E11.29 ; Diabetic 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 ; Iron deficiency anemia due to chronic blood loss D50.0 ; Chronic obstructive pulmonary disease, unspecified COPD type J44.9 ; 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 ; History of DVT (deep vein thrombosis) Z86.718 ; Chronic pain syndrome G89.4 ; Oxygen desaturation during sleep G47.34 ; Sleep apnea in adult G47.33 ; Gastroesophageal reflux disease without esophagitis K21.9 ; Essential hypertension I10 ; Primary insomnia F51.01 and Depression, unspecified depression type F32.9 [facility] [id number] [place] [address] [id number] Dec, Dental caries K02.9 [facility] [id number] [place] [address] [id number] Dec, [facility] [address] [id number] Dec, Dental examination Z01.20 [facility] [facility] [id number] [place] [address] [id number] November, Dental examination Z01.20 and Dental caries K02.9 [facility] [address] [id number], [place] [id number] Oct, [facility] [address] [id number], [place] [id number] Oct, [facility] [address] [id number] [place] [address] [id number] Sep, [facility] [address] [id number] [place] [address] [id number] Sep, [facility] [address] [id number] [place] [address] [id number] Sep, [facility] [address] [id number], [place] [id number] Sep, Other chronic pain 338.29 [facility] [place] [id number], [place] 805002230 Aug, Diabetes type 2, uncontrolled E11.65 and Morbid obesity due to excess calories E66.01 [facility] [place] [id number], [place] [id number] Aug, Hair loss L65.9 [facility] [place] [id number] [place] [address] [id number] Aug, [facility] [place] [id number], [place] [id number] Jul, [facility] [place] [id number] [place] [address] [id number] Jul, [facility] [place] [id number] [place] [address] [id number] Jun, [facility] [place] [id number] [place] [address] [id number] Jun, Hair loss L65.9 and Disorder of the skin and subcutaneous tissue, unspecified L98.9 [facility] [place] [id number] [place] [address] [id number] May, Type 2 diabetes mellitus with other diabetic kidney complication E11.29 ; Type 2 diabetes mellitus with hyperglycemia E11.65 ; Morbid obesity due to excess calories E66.01 and Essential hypertension I10 [facility] [place] [id number] [place] [address] [id number] May, Diabetes type 2, uncontrolled E11.65 ; Encounter for immunization Z23 and Morbid obesity due to excess calories E66.01 [facility] [place] [id number], [place] [id number] May, [facility] [id number] [place] [address] [id number] [phone] Apr, [facility] [place] [id number] [place] [address] [id number] Apr, Hyperglycemia R73.9 [facility] [place] [id number], [place] [id number] Apr, [facility] [id number], [place] [id number] Apr, Depression F32.9 ; Encounter for immunization Z23 ; Hyperglycemia R73.9 and Anemia in other chronic diseases classified elsewhere D63.8 [facility] [place] [address] [id number] [place] [id number] Mar, [facility] [address]00565100[place], [place] [id number] Feb, Positive occult stool blood test 792.1 [id number] [place] [address] [id number] Feb, Depression 311 ; Other chronic pain 338.29 and Diabetes with renal manifestations, type II or unspecified type, not stated as uncontrolled 250.40 [facility] [address]00565100[place] [id number]- 2598 Feb, Occult blood in stools 792.1 [address]00565100[place], [place] [id number] Feb, Anemia 285.9 ; Occult blood positive stool 792.1 ; Unspecified essential hypertension 401.9 and Other chronic pain 338.29 [address]00565100[place], [place] [id number] Feb, [id number], [place] [id number] Feb, Anemia 285.9 [address]00565100[place], [place] [id number] Feb, [id number], [place] [id number] Feb, [id number] [id number] Feb, Diabetes with renal manifestations, type II or unspecified type, not stated as uncontrolled 250.40 ; Other chronic pain 338.29 ; Unspecified essential hypertension 401.9 ; Anemia 285.9 and Depression 311 [address]00565100[place], [place] [id number] Jan, [id number] [place] [address] [id number] Jan, Anemia 285.9 and Follow up V67.9 [facility] [place] [address] [id number] [place] [id number] Jan, [facility] [place] [address] [id number] [place] [id number] Jan, [facility] [place] [address] [facility] [id number] [place] [id number] Jan, [facility] [place] [address] [id number] [place] [id number] Dec, [facility] [place] [facility] [address]00565100[place] [address]- 1488 Oct, [facility] [place] [facility] [id number] [place] [address] 79[address]- 7509 Oct, [facility] [place] [facility] [address] [id number] [address]- 9845 Sep, [facility] [place] [id number], [place] [id number] Sep, [facility] [place] [facility] [address]00565100[place] 20191303- 6410 Sep, [facility] [place] [id number], [place] [id number] Aug, [facility] [place] [address]00565100[place] [address]- 5459 Aug, [facility] [place] [facility] [address]00565100[place] [address]- 9978 Aug, [facility] [place] [address] [id number], [place] [id number] Aug, [facility] [place] [facility] [address]00565100[place] [address]- 4388 Aug, [facility] [place] [facility] [address]00565100[place] [address]- 5529 Aug, [facility] [place] [address] [id number], [place] [id number] Aug, [facility] [place] [facility] [address] [facility] [id number] [address]- 7880 Aug, [facility] [place] [address] [facility] [id number] [place] [id number] Jul, [facility] [place] [facility] [address] [facility] [id number] [place] [address]- 1296 Jul, [facility] [place] [facility] [address] [facility] [id number] [place] [address]- 9567 Jul, [facility] [place] [address] [facility] [id number] [place] [id number] Jul, [facility] [place] [facility] [address] [facility] [id number] [place] [address]- 8944 Jul, [facility] [place] [address] [facility] [id number] [place] [id number] Jul, [facility] [address] [facility] [id number] [address]- 0348 Jul, [facility] [place] [address] [facility] [id number], [place] 569830449 Jun, [facility] [place] [address] [facility] [id number] [place] [id number] Jun, [facility] [place] [facility] [address] [id number] [address]- 1208 Jun, [facility] [place] [facility] [address] [facility] [id number] [address]- 2730 Jun, [facility] [place] [address] [facility] [id number], [place] [id number] Jun, [facility] [place] [facility] [address] [facility] [id number] [address]- 2234 Jun, [facility] [place] [address] [facility] [id number], [place] [id number] May, [facility] [place] [facility] [address] [facility] [id number] [address]- 6561 May, [facility] [place] [facility] [address] [facility] [id number] [address]- 4210 May, [facility] [place] [address] [id number], [place] [id number] Apr, [facility] [place] [facility] [address] [facility] [id number] [place] [address]- 4854 Apr, [facility] [place] [address] [id number], [place] 025372638 Apr, [facility] [place] [address] [id number] [place] [id number] Apr, [facility] [place] [facility] [address] [facility] [id number] [address]- 6949 Apr, [facility] [place] [facility] [address] [facility] [id number] [address]- 0520 Apr, [facility] [place] [address] [facility] [id number], [place] 022277229 Mar, [facility] [place] [facility] [address]00565100[place] [address]- 3198 Mar, [facility] [place] [address] [facility] [id number], [place] [id number] Mar, [facility] [place] [facility] [address] [facility] [id number] [place] 2179[place]- 1519 Mar, [facility] [place] [address] [facility] [id number], [place] 610036339 Mar, [facility] [place] [facility] [address] [facility] [id number] [address]- 3869 Mar, [facility] [place] [address] [facility] [id number], [place] [id number] Mar, [facility] [place] [facility] [address] [facility] [id number] [address]- 5213 Mar, [facility] [place] [address] [facility] [id number], [place] 948632898 Mar, [facility] [place] [facility] [address] [facility] [id number] [address]- 4034 Mar, [facility] [place] [address] [facility] [id number], [place] [id number] Feb, [facility] [place] [facility] [address] [id number] [place] [address]- 2546 Feb, [facility] [place] [address] [id number] [place] [id number] Jan, [facility] [place] [facility] [address] [id number] [place] [address]- 2546 Jan, [facility] [place] [address] [id number] [place] [id number] Jan, [facility] [place] [facility] [address] [id number] [place] [address]- 1846 Jan, [facility] [place] [address] [id number] [place] [id number] Jan, [facility] [place] [facility] [address] [id number] [place] [address] 2546 Jan, [facility] [place] [facility] [address] [facility] [id number] [place] [address]- 5836 Dec, [facility] [place] [facility] [address] [id number] [place] [address]- 4157 Dec, [facility] [place] [address] [id number] [place] [id number] November, [facility] [place] [facility] [address] [id number] [place] [address]- 3086 November, [facility] [place] [address] [id number] [place] [id number] November, [facility] [place] [facility] [address] [id number] [place] [address]- 2546 November, [facility] [place] [address] [id number] [place] [id number] Oct, [facility] [place] [facility] [address] [id number] [place] [address]- 8046 Oct, [facility] [place] [facility] [address] [id number] [place] [address]- 5426 Oct, [facility] [place] [facility] [address] [facility] [id number] [address]- 2166 Oct, [facility] [place] [facility] [address] [facility] [id number] [address]- 1729 Oct, [facility] [place] [facility] [address] [facility] [id number] [address]- 8269 Oct, [facility] [place] [address] [facility] [id number], [place] 779778541 Sep, [facility] [place] [address] [facility] [id number], [place] 545950075 Sep, [facility] [place] [facility] [address] [facility] [id number] [address]- 9050 Sep, [facility] [place] [facility] [address]00565100[place] [address]- 0278 Sep, [facility] [place] [id number], [place] 037172858 Sep, [facility] [place] [facility] [address]00565100[place] [address]- 8145 Sep, [facility] [place] [facility] [address]00565100[place] [address]- 0206 Aug, [facility] [place] [facility] [address]00565100[place] [address]- 2706 Aug, [facility] [place] [address] [id number], [place] 833389413 Aug, [facility] [place] [address] [id number], [place] 679484473 Aug, [facility] [place] [facility] [address] [facility] [id number] [address]- 2281 Aug, [facility] [place] [address] [facility] [id number], [place] [id number] Aug, [facility] [place] [facility] [address] [facility] [id number] [address]- 6426 Aug, [facility] [place] [id number], [place] [id number] Aug, [facility] [place] [facility] [address] [id number] [place] [address]- 2546 Aug, [facility] [place] [address] [facility] [id number] [place] [id number] Aug, [facility] [place] [facility] [address] [id number] [address]- 2546 Aug, [facility] [place] [address] [facility] [id number], [place] 019087314 Aug, [facility] [place] [facility] [address] [id number] [place] [address]- 2546 Aug, [facility] [place] [facility] [address] [facility] [id number] [place] [address]- 2546 Jul, [facility] [place] [address] [id number], [place] 782254980 Jun, [facility] [place] [facility] [address]00565100[place] [address]- 2546 Jun, [facility] [place] [facility] [address] [id number] [address]- 6666 Jun, [facility] [place] [facility] [address] [facility] [id number] [address]- 2986 Jun, [facility] [place] [address] [id number], [place] [id number] Jun, [facility] [place] [facility] [address]00565100[place] [address]- 2546 Jun, [facility] [place] [facility] [address] [id number] [place] [address]- 2546 Jun, [facility] [place] [address] [facility] [id number], [place] [id number] Jun, [facility] [place] [facility] [address] [facility] [id number] [address]- 2546 Jun, [facility] [place] [facility] [address] [facility] [id number] [address]- 2546 May, [facility] [place] [address] [facility] [id number], [place] 118469929 May, [facility] [place] [facility] [address]00565100[place] [address]- 7536 May, [facility] [place] [facility] [address] [id number] 873427- 4435 May, [facility] [place] [facility] [address]00565100[place] [address]- 4595 May, [facility] [place] [facility] [address] [facility] [id number] [address]- 8150 May, [facility] [place] [id number] [place] [address] [id number] May, [facility] [place] [facility] [address]00565100[place] [address]- 4936 May, [facility] [place] [id number], [place] 038470928 May, [facility] [place] [facility] [address]00565100[place] [address]- 7225 May, [facility] [place] [address] [id number], [place] 195788013 Apr, [facility] [place] [facility] [address]00565100[place] [address]- 5011 Apr, [facility] [place] [facility] [address]00565100[place] [address]- 1653 Apr, [facility] [place] [address] [facility] [id number], [place] 031119625 Apr, [facility] [place] [facility] [address] [facility] [id number] [address]- 5195 Apr, [facility] [place] [facility] [address] [facility] [id number] [address]- 8946 Apr, [facility] [place] [address] [facility] [id number], [place] 149209158 Apr, [facility] [place] [facility] [address]00565100[place] [address]- 3651 Apr, [facility] [place] [facility] [address] [facility] [id number] [address]- 6240 Apr, [facility] [address] [facility] [id number] [address]- 3001 Apr, [facility] [place] [address] [id number], [place] [id number] Apr, [facility] [address] [facility] [id number] [address]- 7845 Apr, [facility] [place] [address] [id number], [place] 728360087 Apr, [facility] [address] [facility] [id number] [address]- 0664 Apr, [facility] [place] [address] [id number], [place] 290643645 Apr, [facility] [place] [facility] [address] [facility] [id number] [place] 432898- 8532 Apr, [facility] [place] [facility] [address] [facility] [id number] [address]- 5091 Apr, [facility] [address] [facility] [id number] [address]- 0226 Apr, [facility] [place] [address] [id number], [place] 279976236 Apr, [facility] [place] [facility] [address] [facility] [id number] [address]- 3627 27 Mar, 2013 [facility] [place] [facility] [address] [facility] [id number] [address]- 0847 Mar, [facility] [place] [address] [id number], [place] 751142680 17 Mar, 2013 [facility] [place] [address] [id number], [place] 345269962 17 Mar, 2013 [facility] [place] [address] [id number], [place] 625952927 16 Mar, 2013 [facility] [place] [address] [id number] [place] 624839702 Feb, [facility] [place] [address] [id number] [place] 645970524 Feb, [facility] [place] [address] [id number] [place] 808615505 Feb, [facility] [address] [facility] [id number] [place] 77032277- 0035 Feb, [facility] [place] [address] [id number] [place] 459460643 Feb, [facility] [place] [address] [id number] [place] 016141448 Feb, [facility] [place] [address] [id number] [place] 947948837 Feb, [facility] [place] [address] [id number] [place] 911349612 Feb, [facility] [place] [address] [id number] [place] 435685162 Feb, [facility] [place] [address] [id number] [place] 581157706 Jan, [facility] [place] [address] [id number] [place] 946283453 Jan, [facility] [place] [address] [id number] [place] 669076773 Jan, [facility] [place] [address] [id number] [place] 806761647 Jan, [facility] [place] [address] [id number] [place] 427708192 Jan, [facility] [address] [facility] [id number] [place] 89781577- 5714 Jan, [facility] [place] [address] [id number] [place] [id number] Jan, [facility] [place] [address] [id number] [place] [id number] Jan, [facility] [place] [address] [id number] [place] 117452542 Dec, [facility] [place] [address] [id number] [place] 094371052 November, [facility] [place] [address] [id number] [place] [id number] November, [facility] [place] [address] [id number] [place] [id number] November, [facility] [place] [address] [id number] [place] 451456610 November, [facility] [place] [address] [id number] [place] 676336827 November, [facility] [place] [address] [id number] [place] 847222903 November, [facility] [place] [address] [id number] [place] 582406386 Jul, [facility] [place] [address] [id number] [place] 654661448 Jul, [facility] [place] [address] [id number] [place] 230521521 Jul, [facility] [place] [address] [id number] [place] 650895656 Jun, [facility] [address]00565[address] [address] Jun, [facility] [place] [address] [id number] [place] [id number] May, [facility] [address] [address] May, [facility] [place] [address] [id number][place] [id number] May, [facility] [place] [facility] [address] [facility] [id number] [address] May, [facility] [place] [address] [id number][place] [id number] May, [facility] [place] [facility] [address] [id number] [address] May, [facility] [place] [address] [id number] [place] [id number] Apr, [facility] [place] [facility] [address] [address] Apr, [facility] [address] [facility] [id number] [place] [address] Apr, [facility] [place] [address] [id number][place] [id number] Apr, [facility] [place] [address] [id number][place] [id number] Apr, [facility] [address] [facility] [id number] [place] [address] Apr, [facility] [address] [facility] [id number] [place] [address] Apr, [facility] [place] [address] [id number][place] [id number] Apr, [facility] [address] [facility] [id number] [place] [address] Apr, [facility] [place] [address] [id number][place] [id number] Apr, [facility] [place] [address] [id number][place] [id number] Apr, [facility] [place] [address] [id number] [place] [id number] Mar, [facility] [place] [address] [id number][place] [id number] Feb, [facility] [place] [address] [id number][place] [id number] Jan, [facility] [place] [address] [id number][place] [id number] Dec, [facility] [place] [address] [id number] [place] [id number] Dec, [facility] [place] [address] [id number][place] [id number] Dec, [facility] [place] [address] [id number], [place] [id number] Dec, [facility] [place] [address] [id number], [place] [address]39[place]8067 Dec, [facility] [place] [address] [id number] [place] [id number] November, [facility] [address] [id number] [place] [id number] November, [facility] [place] [address] [id number] [place] [id number] November, [facility] [address]00565100[place] [address] November, [facility] [place] [address] [id number] [id number] November, [facility] [place] [address] [id number] [place] [id number] November, [facility] [place] [address] [id number] [place] [id number] Oct, [facility] [place] [address] [id number] [place] [id number] Oct, [facility] [place] [address] [id number] [place] [id number] Oct, [facility] [place] [address] [id number] [place] [id number] Oct, [facility] [place] [address] [id number] [place] [id number] Oct, [facility] [place] [address] [id number] [place] [id number] Oct, [facility] [place] [address] [id number] [place] [id number] Sep, [facility] [place] [address] [id number] [place] [id number] Aug, [facility] [place] [address] [id number] [place] [id number] Aug, [facility] [place] [address] [id number] [place] [id number] Jul, [facility] [address]65[address]- [address] Jun, [facility] [address]00565100[place] [address] Jun, [facility] [place] [facility] [address] [id number] [place] [address] Jun, [facility] [place] [facility] [address] [id number] [place] [address]- [address] Jun, [facility] [place] [facility] [address] [id number] [place] [address]- [address] May, [facility] [place] [facility] [address] [id number] [place] [address]- [address] May, [facility] [place] [facility] [address] [id number] [place] [address]- [address] Apr, [facility] [place] [facility] [address] [id number] [place] [address]- [address] Apr, [facility] [place] [facility] [address] [id number] [place] [address]- [address] Apr, [facility] [place] [facility] [address] [id number] [place] [address]- [address] Feb, [facility] [place] [facility] [address] [id number] [place] [address]- [address] Aug, [facility] [place] [facility] [address] [id number] [place] [address]- [address] Jul, [facility] [place] [facility] [address] [id number] [place] [address]- [address] Jun, [facility] [place] [facility] [address] [id number] [place] [address]- [address]35 May, [facility] [place] [facility] [address] [id number] [place] [address]- [address]329 May, [facility] [place] [facility] [address] [id number] [place] [address]- [address] May, [facility] [place] [facility] [address] [id number] [place] [address] May, [facility] [place] [facility] [address] [address] May, [facility] [address] [address] Aug, [facility] [address] [address] Jun, [facility] [address] [address] Jun, [facility] [address] [address] Jun, [facility] [id number] [place] [id number] May, [facility] [id number] [place] [address] Apr, [facility] [id number] [place] [address] Apr, [facility] [address] [address] Apr, [facility] [id number] [place] [address] Jan, [facility] [address] [address] Oct, [facility] [address] [address] May, [facility] [address] [address] May, IMMUNIZATIONS No Known Immunizations SOCIAL HISTORY Never Assessed REASON FOR VISIT Refill request PLAN OF CARE VITAL SIGNS MEDICATIONS Medication Instructions Dosage Frequency Start Date End Date Duration Status Albuterol Sulfate 90 mcg/actuation inhalation every 4-6 hours as needed 1-2 puffs Active RESULTS No Results PROCEDURES No [...] Dialysis [facility]es 2012 -Dr. Simon now [facility] Medical History Colonoscopy (polyps 2 ) [...]
--- OUTSIDE RECORDS SUMMARY | 2017-12-22 19:25 | XMS REPORT ---
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 Name Role Phone CHELSY VILLAFANA Unavailable PROBLEMS Type Condition ICD9-CM Code JRA97-RA Code Onset Dates Condition Status SNOMED Code Problem Chronic pain syndrome G89.4 Active 201911478 Problem Type 2 diabetes mellitus with hyperglycemia E11.65 Active 907161430045169 Problem Primary insomnia F51.01 Active 8203508 Problem Bilateral lower extremity edema R60.0 Active 194353635 Problem Anemia in other chronic diseases classified elsewhere D63.8 Active 163265412 Problem Supplemental oxygen dependent Z99.81 Active 294363638954 Problem Right carpal tunnel syndrome G56.01 Active 579097766066221 Problem 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 Active 956227848296240 Problem Paresthesia of right upper extremity R20.2 Active 41362697 Problem Chronic kidney disease, stage 4 (severe) N18.4 Active 866130190 Problem 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 Active 583376445 Problem Psoriasis of scalp L40.9 Active 001950384 Problem Gastroesophageal reflux disease without esophagitis K21.9 Active 400419149 Problem Chronic obstructive pulmonary disease, unspecified COPD type J44.9 Active 77259467 Problem Type 2 diabetes mellitus with other diabetic kidney complication E11.29 Active 774217926 Problem Diabetic 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 Active 63000792 Problem History of DVT (deep vein thrombosis) Z86.718 Active 160286990 Problem detention current use of anticoagulant Z79.01 Active 074736894 Problem Oxygen desaturation during sleep G47.34 Active 231672526 Problem Essential hypertension I10 Active 48538672 Problem Depression, unspecified depression type F32.9 Active 17230708 Problem Sleep apnea in adult G47.33 Active 88428833 ALLERGIES No Information ENCOUNTERS Encounter Location Date Diagnosis [facility] [address] [address] November, [facility] [id number] [place] [address] 01006- 0093 November, [facility] [address], [place] [address] 7[address] November, [facility] [address] [place] [address] 64460- 7348 Oct, Type 2 diabetes mellitus with other diabetic kidney complication E11.29 [facility] [address] [place] [address] 74800- 1153 Oct, Primary insomnia F51.01 [place] [id number] [id number] Oct, Bilateral lower extremity edema R60.0 [place] [id number] [place] [address] 92899- 4073 Oct, [facility] [id number] [place] [address] 06524- 0729 Sep, Type 2 diabetes mellitus with other diabetic kidney complication E11.29 and Chronic obstructive pulmonary disease, unspecified COPD type J44.9 [facility] [facility] [address], [place] [address] 15 Aug, 2017 Type 2 diabetes mellitus with other diabetic kidney complication E11.29 [facility] [address] [place] [address] 76371- 3598 Aug, Gastroesophageal reflux disease without esophagitis K21.9 ; detention current use of anticoagulant Z79.01 ; Chronic pain syndrome G89.4 ; Essential hypertension I10 and Type 2 diabetes mellitus with other diabetic kidney complication E11.29 [facility] [facility] [address] [place] [address] 06895- 4585 08 Aug, 2017 Chronic pain syndrome G89.4 [facility] [address] [place] [address] 14428- 3206 Aug, Type 2 diabetes mellitus with other diabetic kidney complication E11.29 [facility] [address], [place] [address] 1766 Jul, Diabetic 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 [facility] [address], [place] [address] 7060 Jul, Primary insomnia F51.01 [facility] [id number] [place] [address] 39176- 6384 Jul, [facility] [id number] [place] [address] 51457- 8079 Jul, Type 2 diabetes mellitus with other diabetic kidney complication E11.29 and Chronic obstructive pulmonary disease, unspecified COPD type J44.9 [place] [id number] [place] [address] 71582- 0371 Jul, Type 2 diabetes mellitus with other diabetic kidney complication E11.29 [facility] [facility] [id number] [place] [address] 14700- 1785 Jun, Type 2 diabetes mellitus with other diabetic kidney complication E11.29 [facility] [facility] [address] [place] [address] 78930- 3839 Jun, [facility] [address] [place] [address] 65759- 6606 Jun, Chronic obstructive pulmonary disease, unspecified COPD type J44.9 [facility] [facility] [address], [place] [address] 8962 May, Type 2 diabetes mellitus with other diabetic kidney complication E11.29 [facility] [facility] [address], [place] [address] 5858 May, 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 and Essential hypertension I10 [facility] [address], [place] [address] 6460 May, Anemia in other chronic diseases classified elsewhere D63.8 ; Chronic obstructive pulmonary disease, unspecified COPD type J44.9 ; Oxygen desaturation during sleep G47.34 ; Sleep apnea in adult G47.33 and Supplemental oxygen dependent Z99.81 [place] [address] [place] [address] 28917- 1292 08 May, 2017 Type 2 diabetes mellitus with other diabetic kidney complication E11.29 ; Essential hypertension I10 ; Chronic pain syndrome G89.4 ; BMI 40.0-44.9, adult Z68.41 ; Gastroesophageal reflux disease without esophagitis K21.9 ; 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 ; detention 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 ; Diabetic 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 ; Edema of both legs R60.0 and Supplemental oxygen dependent Z99.81 [place] [id number] [place] [address] 69940- 1588 May, [facility] [address] [place] [address] 46209- 8561 May, Essential hypertension I10 and Gastroesophageal reflux disease without esophagitis K21.9 [facility] [address] [place] [address] 21027- 2671 May, [facility] [facility] [address] [place] [address] 89249- 3767 May, Type 2 diabetes mellitus with other diabetic kidney complication E11.29 and 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 [facility] [address] [place] [address] 17097- 5255 Apr, Chronic pain syndrome G89.4 and Essential hypertension I10 [facility] [facility] [address] [place] [address] 95459- 6070 Apr, Type 2 diabetes mellitus with other diabetic kidney complication E11.29 [facility] [facility] [address] [place] [address] 70048- 2627 Apr, Type 2 diabetes mellitus with other diabetic kidney complication E11.29 [facility] [facility] [address] [place] [address] 48171- 4054 Apr, Essential hypertension I10 [place] [address] [address] [address] [place] [address] 19559- 4175 06 Apr, 2017 Gastroesophageal reflux disease without esophagitis K21.9 [place] [address] [place] [address] 69439- 8531 05 Apr, 2017 Type 2 diabetes mellitus with other diabetic kidney complication E11.29 [facility] [address] [place] [address] 44096- 3678 Apr, Type 2 diabetes mellitus with other diabetic kidney complication E11.29 and 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 [facility] [address] [place] [address] 61257- 2483 Mar, Encounter for immunization Z23 and Preoperative examination Z01.818 [place] [address] [place] [address] 44736- 6710 Mar, [facility] [facility] [address] 73460- 8573 Mar, Type 2 diabetes mellitus with other diabetic kidney complication E11.29 [facility] [facility] [address] [place] [address] 56095- 6657 Mar, Type 2 diabetes mellitus with other diabetic kidney complication E11.29 [facility] [address] [place] [address] 43731- 2288 Mar, Gastroesophageal reflux disease without esophagitis K21.9 [place] [address] [place] [address] 05587- 7317 Mar, Essential hypertension I10 [place] [address] [place] [address] 49611- 9663 Feb, detention current use of anticoagulant Z79.01 [place] [address] [place] [address] 67698- 1329 Feb, Type 2 diabetes mellitus with other diabetic kidney complication E11.29 [facility] [address] [place] [address] 28574- 9700 Feb, Type 2 diabetes mellitus with other diabetic kidney complication E11.29 [facility] [address], [place] [address]- 0232 Feb, Type 2 diabetes mellitus with other diabetic kidney complication E11.29 [facility] [address] [place] [address] 38459 2546 Feb, Gastroesophageal reflux disease without esophagitis K21.9 [facility] [id number] [place] [address] 94550- 6327 Feb, Type 2 diabetes mellitus with other diabetic kidney complication E11.29 [facility] [address] [place] [address] 14468- 9568 Feb, 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 [facility] [address] [place] [address] 36113- 2813 Jan, Type 2 diabetes mellitus with other diabetic kidney complication E11.29 [facility] [address] [place] [address] 34552- 7080 Jan, Type 2 diabetes mellitus with other diabetic kidney complication E11.29 [facility] [address] [place] [address] 47826- 2998 Jan, Chronic pain syndrome G89.4 [facility] [address] [place] [address] 17244 2544 Jan, [facility] [address], [place] [address] 2547 Jan, [facility] [address], [place] [address] 2546 Jan, [facility] [id number] [place] [address] 07933 2547 Jan, [facility] [id number] [place] [address] 18359- 2547 Jan, Primary insomnia F51.01 ; Type 2 diabetes mellitus with other diabetic kidney complication E11.29 ; Chronic pain syndrome G89.4 and Essential hypertension I10 [facility] [address], [place] [address]- 7816 Jan, Primary insomnia F51.01 [place] [address] [place] [address] 10640- 5383 Jan, Type 2 diabetes mellitus with other diabetic kidney complication E11.29 [facility] [address] [place] [address] 48347- 6243 Jan, [place] [address] [place] [address] 82319- 2323 Jan, Chronic obstructive pulmonary disease, unspecified COPD type J44.9 [place] [address] [place] [address] 46188- 9908 Jan, Essential hypertension I10 ; Type 2 diabetes mellitus with other diabetic kidney complication E11.29 ; Chronic obstructive pulmonary disease, unspecified COPD type J44.9 ; Chronic kidney disease, stage 4 (severe) N18.4 ; Right carpal tunnel syndrome G56.01 ; 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 ; vermin 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 (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 and Diabetic 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 [place] [address] [place] [address] 25296- 9334 Jan, Gastroesophageal reflux disease without esophagitis K21.9 [place] [address] [place] [address] 26619- 0450 Dec, [place] [id number] [place] [address] 75549- 3379 Dec, [place] [address] [place] [address] 37700- 5203 Dec, detention current use of anticoagulant Z79.01 ; Chronic pain syndrome G89.4 and Essential hypertension I10 [place] [address] [place] [address] 94355- 4124 Dec, [facility] [address] [place] [address] 05917- 2820 Dec, Type 2 diabetes mellitus with other diabetic kidney complication E11.29 [facility] [address], [place] [address]- 6846 Dec, [facility] [id number] [place] [address] 24688- 2954 Dec, Gastroesophageal reflux disease without esophagitis K21.9 [facility] [address] [place] [address] 58428- 0373 November, Type 2 diabetes mellitus with other diabetic kidney complication E11.29 [facility] [address] [place] [address] 88894- 2973 November, [facility] [address] [place] [address] 20133- 4941 November, Type 2 diabetes mellitus with other diabetic kidney complication E11.29 [facility] [address] [place] [address] 24529- 6302 November, [facility] [address] [place] [address] 51261- 8629 November, Type 2 diabetes mellitus with other diabetic kidney complication E11.29 [facility] [address] [place] [address] 07202- 6400 November, [facility] [address] [place] [address] 61825- 8121 Oct, Essential hypertension I10 [facility] [id number] [place] [address] 88769- 7053 Oct, Psoriasis of scalp L40.9 [facility] [address] [place] [address] 98375- 6459 Oct, Essential hypertension I10 and Chronic pain syndrome G89.4 [facility] [id number] [place] [address] 98010- 4374 Oct, [facility] [id number] [place] [address] 47068- 5935 Sep, Type 2 diabetes mellitus with other diabetic kidney complication E11.29 [facility] [id number] [place] [address] 07733- 6720 Sep, [facility] [address] [place] [address] 02098- 9517 Sep, Type 2 diabetes mellitus with other diabetic kidney complication E11.29 [facility] [address] [place] [address] 62833- 8017 Sep, Type 2 diabetes mellitus with other diabetic kidney complication E11.29 [facility] [address] [place] [address] 08857- 5979 Sep, Type 2 diabetes mellitus with other [...] extremity R20.2 and Psoriasis of scalp L40.9 [place] [address] [place] [address] 78227- 2743 Sep, [place] [address] [place] [address] 46372- 5929 Aug, Essential hypertension I10 [place] [id number] [place] [address] 74755- 7669 Aug, History of DVT (deep vein thrombosis) Z86.718 [place] [address] [place] [address] 46024- 6927 Aug, [place] [id number] [place] [address] 13796- 2634 Jul, [place] [address] 15577- 0649 Jul, [facility] [address], [place] [address]- 5064 Jul, 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 ; Chronic pain syndrome G89.4 and Chronic kidney disease, stage 4 (severe) N18.4 [facility] [address], [place] [address]- 0411 Jul, [facility] [id number] [place] [address] 81921- 2215 Jul, [facility] [address], [place] [address]- 7785 Jul, [facility] [address] [address]- 2544 Jul, [facility] [address], [place] [address]- 4841 Jul, [facility] [address], [place] [address]- 1716 Jul, Type 2 diabetes mellitus with other diabetic kidney complication E11.29 [facility] [address], [place] [address]- 7253 Jul, History of DVT (deep vein thrombosis) Z86.718 [facility] [address], [place] [address]- 7254 Jun, [facility] [address], [place] [address]- 4724 Jun, History of DVT (deep vein thrombosis) Z86.718 [facility] [address], [place] [address]- 8144 Jun, Post traumatic stress disorder (PTSD) F43.10 [facility] [address], [place] [address]- 6161 07 Jun, 2016 Type 2 diabetes mellitus [...] pain M79.641 and Right wrist pain M25.531 [place] [address] [place] [address] 19975- 3257 28 May, 2016 [place] [address] 22563- 3497 May, [place] [id number] [place] [address] 75852- 7552 May, [facility] [id number] [place] [address] 01018- 1171 15 May, 2016 [place] [address] [place] [address] 79657- 0812 May, Anemia in other chronic diseases classified elsewhere D63.8 [place] [id number] [place] [address] 26085- 4366 02 May, 2016 [place] [id number] [place] [address] 84883- 0178 10 Apr, 2016 [place] [address] 12399- 0868 27 Mar, 2016 Dermatofibroma D23.9 [facility] [id number] [place] [address] 64268- 0377 20 Mar, 2016 [place] [address] 20707- 2885 14 Mar, 2016 Chronic pain syndrome G89.4 [facility] [address], [place] [address]- 9961 09 Mar, 2016 [facility] [address], [place] [address]- 0618 Mar, [facility] [address], [place] [address]- 8523 Mar, [facility] [address], [place] [address]- 0605 Feb, [facility] [address], [place] [address]- 1677 Feb, [facility] [address] [address]- 6846 Feb, [facility] [address], [place] [address]- 0769 Feb, [facility] [address], [place] [address]- 4932 Feb, [facility] [address], [place] [address]- 0410 Feb, [facility] [address], [place] [address]- 6444 Feb, Type 2 diabetes mellitus with other [...] Renal failure, chronic, stage 4 (severe) N18.4 [facility] [address], [place] [address]- 1589 Feb, Skin tags, multiple acquired L91.8 [facility] [address], [place] [address]- 4009 Jan, [facility] [id number] [id number] Jan, Dental examination Z01.20 [place] [address], [place] [address]- 5954 Jan, [place] [address], [place] [address]- 6223 Jan, Type 2 diabetes mellitus with other diabetic kidney complication E11.29 ; Diabetic 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 ; Iron deficiency anemia due to chronic blood loss D50.0 ; Chronic obstructive pulmonary disease, unspecified COPD type J44.9 ; 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 ; [...] Renal failure, chronic, stage 4 (severe) N18.4 [place] [address], [place] [address]- 9582 Dec, Diabetes type 2, uncontrolled E11.65 [facility] [address], [place] [address]- 2526 Dec, [facility] [address], [place] [address]- 0899 Dec, Type 2 diabetes mellitus with other [...] F51.01 and Depression, unspecified depression type F32.9 [facility] [id number] [place] [address] [id number] Dec, Dental caries K02.9 [facility] [id number] [place] [address] [id number] Dec, [facility] [id number] [place] [address] [id number] Dec, Dental examination Z01.20 [facility] [id number] [place] [address] [phone] November, Dental examination Z01.20 and Dental caries K02.9 [facility] [id number] [place] [address] [id number] Oct, [facility] [id number] [place] [address] [id number] Oct, [facility] [address] [place] [address] [id number] Sep, [facility] [address] [id number] [place] [address] [id number] Sep, [facility] [address] [id number] [place] [address] [id number] Sep, [facility] [address] [place] [address] [id number] Sep, Other chronic pain 338.29 [facility] [id number] [place] [address] [id number] Aug, Diabetes type 2, uncontrolled E11.65 and Morbid obesity due to excess calories E66.01 [facility] [id number] [place] [address] [id number] Aug, Hair loss L65.9 [facility] [id number] [place] [address] [id number] Aug, [facility] [address] [place] [address] [id number] Jul, [facility] [id number] [place] [address] [id number] Jul, [place] [id number] [place] [address] [id number] Jun, [facility] [address] [place] [address] [id number] Jun, Hair loss L65.9 and Disorder of the skin and subcutaneous tissue, unspecified L98.9 [place] [id number] [place] [address] [id number] May, Type 2 diabetes mellitus with other diabetic kidney complication E11.29 ; Type 2 diabetes mellitus with hyperglycemia E11.65 ; Morbid obesity due to excess calories E66.01 and Essential hypertension I10 [place] [id number] [place] [address] [id number] May, Diabetes type 2, uncontrolled E11.65 ; Encounter for immunization Z23 and Morbid obesity due to excess calories E66.01 [place] [id number] [place] [address] [id number] May, [facility] [id number] [place] [address] [id number] Apr, [place] [id number] [place] [address] [id number] Apr, Hyperglycemia R73.9 [place] [id number] [place] [address] [id number] Apr, [place] [id number] [place] [address] [id number] Apr, Depression F32.9 ; Encounter for immunization Z23 ; Hyperglycemia R73.9 and Anemia in other chronic diseases classified elsewhere D63.8 [facility] [id number] [id number] Mar, [facility] [id number] [place] [address] [id number] Feb, Positive occult stool blood test 792.[id number] [place] [address] [id number] Feb, Depression 311 ; Other chronic pain 338.29 and Diabetes with renal manifestations, type II or unspecified type, not stated as uncontrolled 250.40 [facility] [id number] [place] [address] [id number]- 5411 Feb, Occult blood in stools 792.1 [facility] [id number] [place] [address] [id number] Feb, Anemia 285.9 ; Occult blood positive stool 792.1 ; Unspecified essential hypertension 401.9 and Other chronic pain 338.29 [facility] [id number] [place] [address] [id number] Feb, [facility] [id number] [place] [address] [id number] Feb, Anemia 285.9 [facility] [id number] [place] [address] [id number] Feb, [facility] [id number] [place] [address] [id number] Feb, [facility] [id number] [place] [address] [id number] Feb, Diabetes with renal manifestations, type II or unspecified type, not stated as uncontrolled 250.40 ; Other chronic pain 338.29 ; Unspecified essential hypertension 401.9 ; Anemia 285.9 and Depression 311 [facility] [id number] [place] [address] [id number] Jan, [id number] [place] [address] [id number] Jan, Anemia 285.9 and Follow up V67.9 [facility] [id number] [place] [address] [id number] Jan, [facility] [id number] [place] [address] [id number] Jan, [facility] [id number] [place] [address] [id number] Jan, [facility] [id number] [place] [address] [id number] Dec, [facility] [id number] [place] [address] 84672- 0536 Oct, [facility] [place] [facility] [address] [facility] [id number], [place] [address]- 5065 Oct, [facility] [place] [facility] [address] [facility] [id number], [place] [address]- 8156 Sep, [facility] [place] [address] [facility] [id number], [place] [id number] Sep, [facility] [place] [facility] [address] [facility] [id number], [place] [address]- 2646 Sep, [facility] [place] [address] [facility] [id number], [place] [id number] Aug, [facility] [place] [facility] [address] [facility] [id number], [place] [address]- 6946 Aug, [facility] [place] [facility] [address] [id number], [place] [address]- 9904 Aug, [facility] [place] [address] [facility] [id number], [place] [id number] Aug, [facility] [place] [facility] [address] [facility] [id number], [place] [address]- 1624 Aug, [facility] [place] [facility] [address] [facility] [id number], [place] [address]- 7856 Aug, [facility] [place] [address] [id number][place] [id number] Aug, [facility] [place] [facility] [address] [facility] [id number], [place] [address]- 2936 Aug, [facility] [place] [address] [facility] [id number], [place] [id number] Jul, [facility] [place] [facility] [address] [facility] [id number], [place] [address]- 4706 Jul, [facility] [place] [facility] [address] [facility] [id number][place] [address]- 8176 Jul, [facility] [place] [address] [id number], [place] [id number] Jul, [facility] [place] [facility] [address] [facility] [id number], [place] [address]- 4216 Jul, [facility] [place] [address] [facility] [id number] [place] [id number] Jul, [facility] [place] [facility] [address] [facility] [id number], [place] [address]- 2546 Jul, [facility] [place] [address] [facility] [id number] [place] [id number] Jun, [facility] [place] [address] [facility] [id number], [place] [id number] Jun, [facility] [place] [facility] [address] [facility] [id number] [place] [address]- 5686 Jun, [facility] [place] [facility] [address] [facility] [id number], [place] [address]- 8376 Jun, [facility] [place] [address] [facility] [id number], [place] [id number] Jun, [facility] [place] [facility] [address] [facility] [id number], [place] [address]- 2546 Jun, [facility] [place] [address] [facility] [id number], [place] [id number] May, [facility] [place] [facility] [address] [facility] [id number], [place] [address]- 7256 May, [facility] [place] [facility] [address] [facility] [id number], [place] [address]- 0706 May, [facility] [place] [address] [facility] [id number], [place] [id number] Apr, [facility] [place] [facility] [address] [facility] [id number][place] [address]- 2546 Apr, [facility] [place] [address] [facility] [id number], [place] [id number] Apr, [facility] [place] [address] [facility] [id number], [place] [id number] Apr, [facility] [place] [facility] [address] [facility] [id number], [place] [address]- 2729 Apr, [facility] [place] [facility] [address] [id number] [place] [address]- 2964 Apr, [facility] [place] [address] [id number] [place] [id number] Mar, [facility] [place] [facility] [address] [facility] [id number] [place] [address]- 2312 Mar, [facility] [place] [address] [id number] [place] [id number] Mar, [facility] [place] [facility] [address] [id number] [place] [address]- 2693 Mar, [facility] [place] [address] [id number] [place] [id number] Mar, [facility] [place] [facility] [address] [facility] [id number] [place] [address]- 4059 Mar, [facility] [place] [address] [id number] [place] [id number] Mar, [facility] [place] [facility] [address] [facility] [id number], [place] [address]- 0595 Mar, [facility] [place] [address] [id number] [place] [id number] Mar, [facility] [place] [facility] [address] [facility] [id number], [place] [address]- [address] Mar, [facility] [place] [address] [id number] [place] [id number] Feb, [facility] [place] [facility] [address] [facility] [id number], [place] [address]- 0164 Feb, [facility] [place] [address] [id number] [place] [id number] Jan, [facility] [place] [facility] [address] [facility] [id number] [place] [address]- 5323 Jan, [facility] [place] [address] [id number] [place] [id number] Jan, [facility] [place] [facility] [address] [facility] [id number], [place] [address]- 9696 Jan, [facility] [address] [id number] [place] [id number] Jan, [facility] [place] [facility] [address]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
--- OUTSIDE RECORDS SUMMARY | 2017-12-22 19:27 | XMS REPORT ---
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 Active 495918014 Problem 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 Active 127146338263250 Problem Chronic kidney disease, stage 4 (severe) N18.4 Active 219526456 Problem Type 2 diabetes mellitus with hyperglycemia E11.65 Active 165114179895306 Problem Psoriasis of scalp L40.9 Active 044512381 Problem Paresthesia of right upper extremity R20.2 Active 67513326 Problem Diabetic 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 Active 29414586 Problem Gastroesophageal reflux disease without esophagitis K21.9 Active 535182298 Problem Anemia in other chronic diseases classified elsewhere D63.8 Active 513052999 Problem Type 2 diabetes mellitus with other diabetic kidney complication E11.29 Active 476961335 Problem Depression, unspecified depression type F32.9 Active 84937701 Problem History of DVT (deep vein thrombosis) Z86.718 Active 794069239 Problem Chronic obstructive pulmonary disease, unspecified COPD type J44.9 Active 90420538 Problem 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 Active 663259201 Problem Oxygen desaturation during sleep G47.34 Active 172416640 Problem Essential hypertension I10 Active 83592071 ALLERGIES No Information ENCOUNTERS Encounter Location Date Diagnosis [facility] [address] [facility] [id number] [id number] Oct, [place] [address], [place] [address] Oct, [place] [address] [place] [id number] [place] [address] 51102- 5903 Sep, Type 2 diabetes mellitus with other diabetic kidney complication E11.29 and Chronic obstructive pulmonary disease, unspecified COPD type J44.9 [place] [address] [place] [id number] [place] [address] 61480- 6653 15 Aug, 2017 Type 2 diabetes mellitus with other diabetic kidney complication E11.29 [place] [address] [place] [id number] [place] [address] 21484- 2728 12 Aug, 2017 Gastroesophageal reflux disease without esophagitis K21.9 ; 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 ; Chronic pain syndrome G89.4 ; Essential hypertension I10 and Type 2 diabetes mellitus with other diabetic kidney complication E11.29 [place] [address] [place] [id number] [address] 08 Aug, 2017 Chronic pain syndrome G89.4 [place] [address] [place] [id number] [place] [address] 75560- 7766 Aug, Type 2 diabetes mellitus with other diabetic kidney complication E11.29 [place] [address], [place] [address] 5[address] Jul, Diabetic 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 [place] [address], [place] [address] 0184 Jul, Primary insomnia F51.01 [place] [address], [place] [address] 6865 Jul, [place] [address] [place] [id number] [place] [address] 92376- 5114 Jul, Type 2 diabetes mellitus with other diabetic kidney complication E11.29 and Chronic obstructive pulmonary disease, unspecified COPD type J44.9 [place] [address] [place] [id number] [place] [address] 51416- 7498 Jul, Type 2 diabetes mellitus with other diabetic kidney complication E11.29 [place] [address] [place] [address] 49777- 5771 Jun, Type 2 diabetes mellitus with other diabetic kidney complication E11.29 [place] [address] [place] [id number] [address] 8521 Jun, [place] [address] [place] [id number] [place] [address] 30764- 0715 Jun, Chronic obstructive pulmonary disease, unspecified COPD type J44.9 [place] [id number] [place] [address] 69241- 3614 May, Type 2 diabetes mellitus with other diabetic kidney complication E11.29 [place] [address] [place] [id number] [place] [address] 14949- 3368 May, 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 and Essential hypertension I10 [place] [address] [place] [id number] [place] [address] 30475- 5313 May, Anemia in other chronic diseases classified elsewhere D63.8 ; Chronic obstructive pulmonary disease, unspecified COPD type J44.9 ; Oxygen desaturation during sleep G47.34 ; Sleep apnea in adult G47.33 and Supplemental oxygen dependent Z99.[address] [place] [address] 38522- 5507 May, Type 2 diabetes mellitus with other diabetic kidney complication E11.29 ; Essential hypertension I10 ; Chronic pain syndrome G89.4 ; BMI 40.0-44.9, adult Z68.41 ; Gastroesophageal reflux disease without esophagitis K21.9 ; residential current use of anticoagulant Z79.01 ; residential 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 ; Diabetic 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 ; Edema of both legs R60.0 and Supplemental oxygen dependent Z99.81 [place] [address], [place] [address] 18[address] May, [place] [address] [place] [id number] [place] [address] 35712- 5321 May, Essential hypertension I10 and Gastroesophageal reflux disease without esophagitis K21.9 [facility] [address] [place] [id number] [place] [address] 85696- 4676 May, [facility] [address] [place] [id number] [place] [address] 95379- 1618 May, Type 2 diabetes mellitus with other diabetic kidney complication E11.29 and residential current use of anticoagulant Z79.01 [place] [address] [place] [id number] [place] [address] 44002- 3466 Apr, Chronic pain syndrome G89.4 and Essential hypertension I10 [place] [address] 43317- 3229 Apr, Type 2 diabetes mellitus with other diabetic kidney complication E11.29 [place] [address] 14480- 0321 Apr, Type 2 diabetes mellitus with other diabetic kidney complication E11.29 [place] [address] [place] [id number] [place] [address] 24390- 6837 Apr, Essential hypertension I10 [place] [address] [place] [id number] [place] [address] 37522- 0759 Apr, Gastroesophageal reflux disease without esophagitis K21.9 [place] [address] [place] [id number] [place] [address] 11925- 5776 Apr, Type 2 diabetes mellitus with other diabetic kidney complication E11.29 [facility] [address] [place] [id number] [place] [address] 57780- 5915 Apr, Type 2 diabetes mellitus with other diabetic kidney complication E11.29 and residential current use of anticoagulant Z79.01 [facility] [address] [place] [id number] [place] [address] 91060- 0261 Mar, Encounter for immunization Z23 and Preoperative examination Z01.818 [place] [address] [place] [id number] [place] [address] 06133- 4906 Mar, [place] [address] [place] [address] 76403- 3954 Mar, Type 2 diabetes mellitus with other diabetic kidney complication E11.29 [facility] [address] [place] [id number] [place] [address] 74688- 7438 Mar, Type 2 diabetes mellitus with other diabetic kidney complication E11.29 [place] [address] [place] [id number] [place] [address] 33483- 3696 Mar, Gastroesophageal reflux disease without esophagitis K21.9 [place] [address] [place] [id number] [place] [address] 40507- 5144 Mar, Essential hypertension I10 [place] [address] [place] [id number] [place] [address] 67155- 2253 Feb, residential current use of anticoagulant Z79.01 [place] [address] [place] [id number] [place] [address] 21178- 5793 Feb, Type 2 diabetes mellitus with other diabetic kidney complication E11.29 [place] [address] [place] [id number] [place] [address] 08406- 3510 Feb, Type 2 diabetes mellitus with other diabetic kidney complication E11.29 [place] [address] [place] [id number] [place] [address] 17372- 2247 Feb, Type 2 diabetes mellitus with other diabetic kidney complication E11.29 [place] [address] [place] [id number] [place] [address] 05031- 8170 Feb, Gastroesophageal reflux disease without esophagitis K21.9 [place] [address] [place] [id number] [place] [address] 02897- 8992 Feb, Type 2 diabetes mellitus with other diabetic kidney complication E11.29 [place] [address] [place] [id number] [place] [address] 22990- 4161 Feb, residential current use of anticoagulant Z79.01 [place] [address] [place] [id number] [place] [address] 16757- 6610 Jan, Type 2 diabetes mellitus with other diabetic kidney complication E11.29 [facility] [address], [place] [address] 0248 Jan, 2017 Type 2 diabetes mellitus with other diabetic kidney complication E11.29 [facility] [address], [place] [address]- 4178 Jan, Chronic pain syndrome G89.4 [facility] [address] [place] [id number], [place] [address] 9255 Jan, [facility] [address] [place] [id number], [place] [address]- 5354 Jan, [facility] [address], [place] [address]- 8920 Jan, [facility] [address], [place] [address]- 1049 Jan, [facility] [address], [place] [address]- 6665 Jan, Primary insomnia F51.01 ; Type 2 diabetes mellitus with other diabetic kidney complication E11.29 ; Chronic pain syndrome G89.4 and Essential hypertension I10 [facility] [address], [place] [address]- 2321 Jan, Primary insomnia F51.01 [facility] [address], [place] [address]- 2697 Jan, Type 2 diabetes mellitus with other diabetic kidney complication E11.29 [facility] [address], [place] [address]- 2608 Jan, [facility] [address], [place] [address]- 6401 Jan, Chronic obstructive pulmonary disease, unspecified COPD type J44.9 [facility] [address], [place] [address]- 7689 Jan, Essential hypertension I10 ; Type 2 diabetes mellitus with other diabetic kidney complication E11.29 ; Chronic obstructive pulmonary disease, unspecified COPD type J44.9 ; Chronic kidney disease, stage 4 (severe) N18.4 ; Right carpal tunnel syndrome G56.01 ; 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 ; 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 supervisor (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 and Diabetic 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 [facility] [address] [place] [id number] [place] [address] 74016- 9549 Jan, Gastroesophageal reflux disease without esophagitis K21.9 [facility] [address] [place] [id number] [place] [address] 51007- 6561 Dec, [facility] [address] 88390- 1759 Dec, [facility] [address] [place] [id number] [place] [address] 32948- 5222 Dec, 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 ; Chronic pain syndrome G89.4 and Essential hypertension I10 [facility] [address] [place] [id number] [place] [address] 44347- 8770 Dec, [facility] [address] [place] [id number] [place] [address] 95505- 6041 Dec, Type 2 diabetes mellitus with other diabetic kidney complication E11.29 [facility] [address] [place] [id number] [address]- 3754 Dec, [facility] [address] [place] [id number] [place] [address] 90923- 8775 Dec, Gastroesophageal reflux disease without esophagitis K21.9 [facility] [address] [place] [id number] [place] [address] 21065- 2013 November, Type 2 diabetes mellitus with other diabetic kidney complication E11.29 [facility] [address] [place] [id number] [place] [address] 46312- 7108 November, [facility] [address] [place] [id number] [place] [address] 35967- 3470 November, Type 2 diabetes mellitus with other diabetic kidney complication E11.29 [facility] [address], [place] [address]- 0421 November, [facility] [address] [place] [id number] [place] [address] 52379- 1135 November, Type 2 diabetes mellitus with other diabetic kidney complication E11.29 [facility] [address] [place] [id number] [place] [address] 19584- 8080 November, [facility] [address] [place] [id number] [place] [address] 23912- 4139 Oct, Essential hypertension I10 [place] [address] [place] [id number] [place] [address] 14025- 7951 Oct, Psoriasis of scalp L40.9 [facility] [address] [place] [id number] [place] [address] 44258- 3093 Oct, Essential hypertension I10 and Chronic pain syndrome G89.4 [facility] [address] [place] [id number] [place] [address] 46134- 3604 Oct, [facility] [address] [place] [id number] [place] [address] 26293- 6055 Sep, Type 2 diabetes mellitus with other diabetic kidney complication E11.29 [facility] [address] [place] [id number] [place] [address] 54972- 8545 Sep, [facility] [address] [place] [id number] [place] [address] 76643- 7240 Sep, Type 2 diabetes mellitus with other diabetic kidney complication E11.29 [facility] [address], [place] [address]- 1193 Sep, Type 2 diabetes mellitus with other diabetic kidney complication E11.29 [facility] [address] [place] [id number] [place] [address] 85881- 3764 Sep, Type 2 diabetes mellitus with other diabetic kidney complication E11.29 ; Chronic kidney disease, stage 4 (severe) N18.4 ; Chronic obstructive pulmonary disease, unspecified COPD type J44.9 ; Iron deficiency anemia due to chronic blood loss D50.0 ; 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 ; Gastroesophageal reflux disease without esophagitis K21.9 ; Essential hypertension I10 ; Primary insomnia F51.01 ; Depression, unspecified depression type F32.9 ; Chronic pain syndrome G89.4 ; Wrist pain, right M25.531 ; Paresthesia of right upper extremity R20.2 and Psoriasis of scalp L40.9 [place] [id number] [place] [address] 84243- 4948 Sep, [place] [id number] [place] [address] 22819- 9236 Aug, Essential hypertension I10 [address] 45253- 3806 Aug, History of DVT (deep vein thrombosis) Z86.[address] 25147- 3153 Aug, [place] [id number] [place] [address] 23454- 5447 Jul, [address] 58398- 1240 Jul, [place] [id number] [place] [address] 87930- 0209 Jul, residential current use of anticoagulant Z79.01 ; Chronic pain syndrome G89.4 and Chronic kidney disease, stage 4 (severe) N18.4 [place] [id number] [place] [address] 25876- 1453 Jul, [address] 17459- 3094 Jul, [place] [id number] [place] [address] 33446- 6073 Jul, [address] 21255- 0414 Jul, [place] [address], [place] [address]- 3796 Jul, [place] [id number] [place] [address] 96465- 4573 Jul, Type 2 diabetes mellitus with other diabetic kidney complication E11.29 [place] [id number] [place] [address] 75555- 3017 Jul, History of DVT (deep vein thrombosis) Z86.718 [place] [address] [place] [id number] [place] [address] 14884- 7266 Jun, [address] 27411- 3595 Jun, History of DVT (deep vein thrombosis) Z86.718 [place] [id number] [place] [address] 60421- 6634 Jun, Post traumatic stress disorder (PTSD) F43.10 [place] [id number] [place] [address] 35448- 8369 07 Jun, 2016 Type 2 diabetes mellitus with other diabetic kidney complication E11.29 ; Diabetic 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 ; Iron deficiency anemia due to chronic blood loss D50.0 ; Chronic obstructive pulmonary disease, unspecified COPD type J44.9 ; 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 ; History [...] pain M79.641 and Right wrist pain M25.531 [address] [place] [address] 96343- 1563 May, [facility] [address] [facility] [id number] [place] [address]- 9950 May, [facility] [address] [facility] [id number] [place] [address]- 7836 May, [facility] [address] [facility] [id number] [place] [address]- 5656 May, [facility] [address] [facility] [id number] [place] [address], [place] [address] 2549 May, Anemia in other chronic diseases classified elsewhere D63.8 [facility] [address] [facility] [id number] [place] [address], [place] [address]- 9846 May, [facility] [address] [place] [address], [place] [address]- 2630 Apr, [facility] [address] [place] [address], [place] [address]- 4436 27 Mar, 2016 Dermatofibroma D23.9 [facility] [address] [place] [address]- 4726 20 Mar, 2016 [facility] [address] [place] [address], [place] [address] 2545 14 Mar, 2016 Chronic pain syndrome G89.4 [facility] [address] [place] [address] 2546 09 Mar, 2016 [facility] [address] [place] [address] 2546 Mar, [facility] [address] [place] [address] 2546 Mar, [facility] [address] [place] [address] 2546 Feb, [facility] [address] [facility] [id number] [place] [address] 2546 Feb, [facility] [address] [place] [address]- 3243 Feb, [place] [address], [place] [address]- 1864 Feb, [place] [address] [place] [id number] [place] [address] 04815- 7304 Feb, [place] [address] [place] [address] 25515- 4546 Feb, [place] [address] [place] [id number] [place] [address] 23843- 9132 Feb, Type 2 diabetes mellitus with other diabetic kidney complication E11.29 ; Diabetic 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 ; Iron deficiency anemia due to chronic blood loss D50.0 ; Chronic obstructive pulmonary disease, unspecified COPD type J44.9 ; 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 ; History of DVT (deep vein thrombosis) Z86.718 ; Chronic pain syndrome G89.4 ; Oxygen desaturation during sleep G47.34 ; Sleep apnea in adult G47.33 ; Gastroesophageal reflux disease without esophagitis K21.9 ; Essential hypertension I10 ; Primary insomnia F51.01 ; Depression, unspecified depression type F32.9 and Renal failure, chronic, stage 4 (severe) N18.4 [place] [address] [place] [address] 29471- 2260 Feb, Skin tags, multiple acquired L91.8 [place] [address], [place] [address]- 0229 Jan, [facility] [address] [place] [address] [id number] Jan, Dental examination Z01.20 [place] [address] [place] [address] 72810- 1865 Jan, [place] [address] [place] [id number] [place] [address] 44686- 6848 Jan, Type 2 diabetes mellitus with other diabetic kidney complication E11.29 ; Diabetic 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 ; Iron deficiency anemia due to chronic blood loss D50.0 ; Chronic obstructive pulmonary disease, unspecified COPD type J44.9 ; 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 ; History [...] 4 (severe) N18.4 [facility] [address] [place] [address] 47260- 4719 Dec, Diabetes type 2, uncontrolled E11.65 [place] [address] 16915- 4240 Dec, [place] [address] 14430- 0135 Dec, Type 2 diabetes mellitus with other diabetic kidney complication E11.29 ; Diabetic 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 ; Iron deficiency anemia due to chronic blood loss D50.0 ; Chronic obstructive pulmonary disease, unspecified COPD type J44.9 ; 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 ; History of DVT (deep vein thrombosis) Z86.718 ; Chronic pain syndrome G89.4 ; Oxygen desaturation during sleep G47.34 ; Sleep apnea in adult G47.33 ; Gastroesophageal reflux disease without esophagitis K21.9 ; Essential hypertension I10 ; Primary insomnia F51.01 and Depression, unspecified depression type F32.9 [facility] [address] [place] [address] [id number] Dec, Dental caries K02.9 [facility] [address] [facility] [id number] [place] [address] [phone] Dec, [facility] [address] [place] [id number] [place] [address] [id number] Dec, Dental examination Z01.20 [facility] [address] [place] [address] [id number] November, Dental examination Z01.20 and Dental caries K02.9 [facility] [id number] [id number] Oct, [facility] [id number] [place] [address] [id number] Oct, [facility] [id number] [place] [address] [id number] Sep, [facility] [id number] [place] [address] [phone] Sep, [facility] [address] [place] [id number] [place] [address] [id number] Sep, [facility] [id number] [place] [address] [id number] Sep, Other chronic pain 338.29 [facility] [address] [id number] [place] [address] [id number] Aug, Diabetes type 2, uncontrolled E11.65 and Morbid obesity due to excess calories E66.01 [facility] [id number] [place] [address] [id number] Aug, Hair loss L65.9 [facility] [id number] [place] [address] [id number] Aug, [facility] [id number] [place] [address] [id number] Jul, [facility] [id number] [place] [address] [id number] Jul, [facility] [address] [id number] [place] [address] [id number] Jun, [facility] [id number] [place] [address] [id number] Jun, Hair loss L65.9 and Disorder of the skin and subcutaneous tissue, unspecified L98.9 [facility] [id number] [place] [address] [id number] May, Type 2 diabetes mellitus with other diabetic kidney complication E11.29 ; Type 2 diabetes mellitus with hyperglycemia E11.65 ; Morbid obesity due to excess calories E66.01 and Essential hypertension I10 [facility] [id number] [place] [address] [id number] May, Diabetes type 2, uncontrolled E11.65 ; Encounter for immunization Z23 and Morbid obesity due to excess calories E66.01 [id number] [place] [address] [id number] May, [facility] [id number] [place] [address] 66268- 2187 Apr, [id number] [place] [address] [id number] Apr, Hyperglycemia R73.[address] [id number] Apr, [address] [id number] Apr, Depression F32.9 ; Encounter for immunization Z23 ; Hyperglycemia R73.9 and Anemia in other chronic diseases classified elsewhere D63.8 [facility] [id number] [place] [address] [id number] Mar, [id number] [place] [address] [id number] Feb, Positive occult stool blood test 792.[address] [id number] Feb, Depression 311 ; Other chronic pain 338.29 and Diabetes with renal manifestations, type II or unspecified type, not stated as uncontrolled 250.40 [facility] [address]00565100[place], [place] [address] 8843 Feb, Occult blood in stools 792.[address] [place] [address] [id number] Feb, Anemia 285.9 ; Occult blood positive stool 792.1 ; Unspecified essential hypertension 401.9 and Other chronic pain 338.29 [address] [place] [address] [id number] Feb, [id number] [place] [address] [id number] Feb, Anemia 285.9 [id number] [place] [address] [id number] Feb, [facility] [place] [address] [id number] [id number] Feb, [facility] [place] [id number] [place] [address] [id number] Feb, Diabetes with renal manifestations, type II or unspecified type, not stated as uncontrolled 250.40 ; Other chronic pain 338.29 ; Unspecified essential hypertension 401.9 ; Anemia 285.9 and Depression 311 [facility] [place] [id number][place] [id number] Jan, [facility] [place] [id number][place] [id number] Jan, Anemia 285.9 and Follow up V67.9 [facility] [place] [id number], [place] [id number] Jan, [facility] [place] [id number] [place] [address] [id number] Jan, [facility] [place] [id number], [place] [id number] Jan, [facility] [place] [id number][place] [id number] Dec, [facility] [id number] [place] [address] 47749- 8416 Oct, [facility] [id number] [place] [address] 18544- 6238 Oct, [facility] [id number] [place] [address] 21617 [id number] Sep, [facility] [place] [address] [id number][place] [id number] Sep, [facility] [id number] [place] [address] 03587- 7098 Sep, [facility] [place] [address] [id number][place] [id number] Aug, [facility] [id number] [place] [address] 28047- 1784 Aug, [facility] [place] [facility] [address] [facility] [id number], [place] [address]- 0771 Aug, [facility] [place] [address] [facility] [id number] [place] [id number] Aug, 2014 [facility] [place] [facility] [address] [id number] [place] [address]- 9546 Aug, [facility] [place] [facility] [id number] [place] [address]- 5436 Aug, 2014 [facility] [place] [address] [facility] [id number] [place] [id number] Aug, [facility] [place] [facility] [id number] [place] [address]- 0776 Aug, [facility] [place] [address] [id number][place] [id number] Jul, [facility] [place] [facility] [id number] [place] [address]- 8116 Jul, [facility] [place] [facility] [address]00565100[place], [place] [address]- 2914 Jul, [facility] [place] [address] [facility] [id number] [place] [id number] Jul, [facility] [place] [facility] [address]00565100[place], [place] [address]- 0596 Jul, [facility] [place] [id number], [place] [id number] Jul, [facility] [place] [facility] [address]00565100[place], [place] [address]- 7712 Jul, [facility] [place] [address] [facility] [id number] [place] [id number] Jun, [facility] [place] [address] [facility] [id number] [place] [id number] Jun, [facility] [place] [facility] [address]00565100[place], [place] [address]- 4037 Jun, [facility] [place] [facility] [address]00565100[place], [place] [address]- 9816 Jun, [facility] [place] [address] [id number] [place] [id number] Jun, [facility] [place] [facility] [address] [facility] [id number] [place] [address]- 5976 Jun, [facility] [place] [address] [id number], [place] [id number] May, [facility] [place] [facility] [address] [facility] [id number], [place] [address]- 8530 May, [facility] [place] [facility] [address] [facility] [id number], [place] [address]- 5047 May, [facility] [place] [address] [id number] [place] [id number] Apr, [facility] [place] [facility] [address] [id number], [place] [address]- 7630 Apr, [facility] [place] [address] [id number], [place] [id number] Apr, [facility] [place] [address] [id number], [place] [id number] Apr, [facility] [place] [facility] [address] [facility] [id number], [place] [address]- 3293 Apr, [facility] [place] [facility] [address] [facility] [id number], [place] 72594582- 0851 Apr, [facility] [place] [address] [id number], [place] [id number] Mar, [facility] [place] [facility] [address] [facility] [id number], [place] [address]- 9469 18 Mar, 2014 [facility] [place] [address] [id number], [place] [id number] Mar, [facility] [place] [facility] [address] [facility] [id number], [place] [address]- 0191 17 Mar, 2014 [facility] [place] [address] [facility] [id number], [place] [id number] 16 Mar, 2014 [facility] [place] [facility] [address] [facility] [id number], [place] [address]- 5936 Mar, [facility] [place] [address] [id number] [place] [id number] Mar, [facility] [place] [facility] [address] [id number] [place] [address]- 3496 Mar, [facility] [place] [address] [id number] [place] [id number] Mar, [facility] [place] [facility] [address] [id number] [place] [address]- 3032 Mar, [facility] [place] [address] [id number] [place] [id number] Feb, [facility] [place] [facility] [address] [facility] [id number] [place] [address]- 1686 Feb, [facility] [place] [address] [id number] [place] [id number] Jan, [facility] [place] [facility] [address] [facility] [id number], [place] [address]- 9257 Jan, [facility] [place] [address] [facility] [id number] [place] [id number] Jan, [facility] [place] [facility] [address] [facility] [id number], [place] [address]- 7936 Jan, [facility] [place] [address] [id number] [place] [id number] Jan, [facility] [place] [facility] [address] [facility] [id number], [place] [address]- 6100 Jan, [facility] [place] [facility] [address] [facility] [id number], [place] [address]- 8664 Dec, [facility] [place] [facility] [address] [facility] [id number], [place] [address]- 4686 Dec, [facility] [place] [address] [id number] [place] [id number] November, [facility] [place] [facility] [address] [facility] [id number] [place] [address]- 8491 November, [facility] [place] [address] [facility] [id number] [place] [id number] November, [facility] [address] [id number] [place] [address]- 1018 November, [facility] [place] [address] [facility] [id number] [place] [id number] Oct, [facility] [place] [facility] [address] [facility] [id number] [place] [address]- 8276 Oct, [facility] [place] [facility] [address] [facility] [id number] [place] [address]- 4756 Oct, [facility] [place] [facility] [address] [facility] [id number] [place] [address]- 6740 Oct, [facility] [place] [facility] [address] [id number] [place] [address]- 2552 Oct, [facility] [place] [facility] [address] [id number] [place] [address]- 6240 Oct, [facility] [place] [address] [facility] [id number], [place] [id number] Sep, [facility] [place] [address] [facility] [id number], [place] [id number] Sep, [facility] [place] [facility] [address] [id number], [place] [address]- 3141 Sep, [facility] [place] [facility] [address] [facility] [id number], [place] [address]- 1930 Sep, [facility] [place] [address] [facility] [id number], [place] 142929296 Sep, [facility] [place] [facility] [address] [facility] [id number] [place] [address]- 7298 Sep, [facility] [place] [facility] [address] [facility] [id number] [place] [address]- 0646 Aug, [facility] [place] [facility] [address] [facility] [id number][place] [address]- 7510 Aug, [facility] [place] [address] [facility] [id number], [place] [id number] Aug, [facility] [place] [address] [facility] [id number] [place] [id number] Aug, [facility] [place] [facility] [address] [facility] [id number], [place] [address]- 2546 Aug, [facility] [place] [address] [facility] [id number] [place] [id number] Aug, [facility] [place] [facility] [address] [facility] [id number][place] [address]- 2546 Aug, [facility] [place] [address] [facility] [id number] [place] [id number] Aug, [facility] [place] [facility] [address] [id number] [place] [address]- 6816 Aug, [facility] [place] [address] [facility] [id number] [place] [id number] Aug, [facility] [place] [facility] [address]65100[place], [place] [address]- 1036 Aug, [facility] [place] [address] [facility] [id number], [place] [id number] Aug, [facility] [place] [facility] [address]65100[place], [place] [address]- 1416 Aug, [facility] [place] [facility] [address] [facility] [id number], [place] [address]- 7846 Jul, [facility] [place] [address] [facility] [id number], [place] [id number] Jun, [facility] [place] [facility] [address] [facility] [id number], [place] [address]- 3626 Jun, [facility] [place] [facility] [address] [facility] [id number], [place] [address]- 8086 Jun, [facility] [place] [facility] [address] [facility] [id number], [place] [address]- 9246 Jun, [facility] [place] [address] [facility] [id number], [place] [id number] Jun, [facility] [place] [facility] [address] [id number], [place] [address]- 8759 Jun, [facility] [place] [facility] [address] [facility] [id number], [place] [address]- 0734 Jun, [facility] [place] [address] [facility] [id number], [place] [id number] Jun, [facility] [place] [facility] [address] [facility] [id number], [place] [address]- 1726 Jun, [facility] [place] [facility] [address] [facility] [id number], [place] [address]- 2810 May, [facility] [place] [address] [facility] [id number], [place] [id number] May, [facility] [place] [facility] [address] [facility] [id number][place] [address]- 1319 May, [facility] [place] [facility] [address] [facility] [id number], [place] [address]- 1030 May, [facility] [place] [facility] [address] [facility] [id number], [place] [address]- 5507 May, [facility] [place] [facility] [address] [facility] [id number], [place] [address]- 0256 May, [facility] [place] [address] [id number], [place] [id number] May, [facility] [place] [facility] [address] [facility] [id number], [place] [address]- 1096 May, [facility] [place] [address] [facility] [id number], [place] 175599754 May, [facility] [place] [facility] [address] [facility] [id number], [place] [address]- 6683 May, [facility] [place] [address] [facility] [id number], [place] 845208316 Apr, [facility] [place] [facility] [address] [facility] [id number], [place] [address]- 7405 Apr, [facility] [place] [facility] [address] [facility] [id number], [place] [address]- 9396 Apr, [facility] [place] [address] [facility] [id number], [place] [id number] Apr, [facility] [place] [facility] [address] [facility] [id number][place] [address]- 4637 Apr, [facility] [address] [facility] [id number], [place] [address]- 3766 Apr, [facility] [place] [address] [facility] [id number], [place] [id number] Apr, [facility] [place] [facility] [address] [facility] [id number], [place] [address]- 2271 Apr, [facility] [place] [facility] [address] [id number], [place] [address]- 6025 Apr, [facility] [address] [id number], [place] [address]- 6980 Apr, [facility] [place] [address] [id number], [place] 300143772 Apr, [facility] [place] [facility] [address] [facility] [id number], [place] [address]- 9076 Apr, [facility] [place] [address] [id number], [place] 567822786 Apr, [facility] [place] [facility] [address] [facility] [id number], [place] [address]- 4108 Apr, [facility] [place] [id number], [place] [id number] Apr, [facility] [place] [facility] [address] [facility] [id number], [place] [address]- 0386 Apr, [facility] [place] [facility] [address] [facility] [id number], [place] [address]- 2321 Apr, [facility] [place] [facility] [address] [facility] [id number], [place] [address]- 5166 Apr, [facility] [place] 120 [facility] [id number], [place] 764922059 Apr, [facility] [place] [facility] [address] [facility] [id number], [place] [address]- 4435 Mar, [facility] [address] [facility] [id number], [place] [address]- 1233 Mar, [facility] [place] [address] [id number] [place] [id number] Mar, [facility] [place] [address] [id number] [place] [id number] Mar, [facility] [place] [address] [id number] [place] [id number] Mar, [facility] [place] [address] [id number] [place] 412191411 Feb, [facility] [place] [address] [id number] [place] 686275410 Feb, [facility] [place] [address] [id number] [place] 041839201 Feb, [facility] [address] [facility] [id number], [place] [address]- 6898 Feb, [facility] [place] [address] [id number] [place] 744118992 Feb, [facility] [place] [address] [id number] [place] 255835632 Feb, [facility] [place] [address] [id number] [place] 274225178 Feb, [facility] [place] [address] [id number] [place] 036909622 Feb, [facility] [place] [address] [id number] [place] [id number] Feb, [facility] [place] [address] [id number] [place] 691236085 Jan, [facility] [place] [address] [id number] [place] 186393043 Jan, [facility] [place] [address] [id number] [place] [id number] Jan, [facility] [place] [address] [id number] [place] 639686471 Jan, [facility] [place] [address] [id number] [place] 663578303 Jan, [facility] [address] [facility] [id number], [place] [address]- 8656 Jan, [facility] [place] [address] [id number] [place] 204373511 Jan, [facility] [place] [address] [id number] [place] 184306914 Jan, [facility] [place] [address] [id number] [place] 815052071 Dec, [facility] [place] [address] [id number] [place] 629529451 November, [facility] [place] [address] [id number] [place] 307191751 November, [facility] [place] [address] [id number] [place] 264700418 November, [facility] [place] [address] [id number] [place] [id number] November, [facility] [place] [address] [id number] [place] [id number] November, [facility] [place] [address] [id number] [place] 302614827 November, [facility] [place] [address] [id number] [place] 975823537 Jul, [facility] [place] [address] [id number] [place] 203565271 Jul, [facility] [place] [address] [id number] [place] [id number] Jul, [facility] [place] [address] [id number] [place] 293359289 Jun, [facility] [address] [facility] [id number], [place] [address]- 4495 Jun, [facility] [place] [address] [id number] [place] [id number] May, [facility] [address] [facility] [id number], [place] [address]- 9576 May, [facility] [place] [address] [id number], [place] 593250019 May, [facility] [address] [facility] [id number], [place] [address]- 9524 May, [facility] [place] [address] [id number], [place] 945281538 May, [facility] [address] [facility] [id number], [place] [address]- 6572 May, [facility] [place] [address] [id number], [place] [id number] Apr, [facility] [address] [facility] [id number], [place] [address]- 2853 Apr, [facility] [place] [facility] [address] [facility] [id number], [place] [address]- 5926 Apr, [facility] [place] [address] [id number], [place] 475762935 Apr, [facility] [place] [address] [id number], [place] 714478651 Apr, [facility] [address]00565100[place], [place] [address]- 0982 Apr, [facility] [address] [facility] [id number], [place] [address]- 2103 Apr, [facility] [place] [address] [id number], [place] [id number] Apr, [facility] [place] [facility] [address] [facility] [id number], [place] [address]- 8067 Apr, [facility] [place] [address] [id number], [place] [id number] Apr, [facility] [place] [address] [id number], [place] [id number] Apr, [facility] [place] [address] [id number], [place] 699925975 Mar, [facility] [place] [address] [id number], [place] [id number] Feb, [facility] [place] [address] [id number] [place] [id number] Jan, [facility] [place] [address] [id number] [place] 966751903 Dec, [facility] [place] [address] [id number] [place] 881702152 Dec, [facility] [place] [address] [id number] [place] [id number] Dec, [facility] [place] [address] [id number] [place] [id number] Dec, [facility] [place] [address] [id number] [place] [id number] Dec, [facility] [place] [address] [id number] [place] [id number] November, [facility] [place] [address] [id number] [place] [id number] November, [facility] [place] [address] [id number] [place] [id number] November, [facility] [address] [facility] [id number], [place] [address] November, [facility] [place] [address] [id number] [place] [id number] November, [facility] [place] [address] [id number] [place] [id number] November, [facility] [place] [address] [id number] [place] [id number] Oct, [facility] [place] [address] [id number] [place] [id number] Oct, [facility] [place] [address] [id number] [place] [id number] Oct, [facility] [place] [address] [id number] [place] [id number] Oct, [facility] [place] [address] [id number] [place] [id number] Oct, [facility] [place] [address] [id number] [place] [id number] Oct, [facility] [place] [address] [id number] [id number] Sep, [facility] [place] [address] [id number] [place] [id number] Aug, [facility] [place] [address] [id number] [place] [id number] Aug, [facility] [place] [address] [facility] [id number] [place] [id number] Jul, [facility] [place] [facility] [address] [facility] [id number] [place] [address], [place] [address] Jun, [facility] [place] [facility] [address] [id number] [place] [address] Jun, [facility] [place] [facility] [id number] [place] [address], [place] [address] Jun, [facility] [place] [facility] [id number] [place] [address] Jun, [facility] [place] [facility] [address] [id number], [place] [address] May, [facility] [place] [facility] [address] [id number], [place] [address] May, [facility] [place] [facility] [id number] [address] Apr, [facility] [place] [facility] [id number], [place] [address] Apr, [facility] [place] [facility] [address] [id number], [place] [address] Apr, [facility] [place] [facility] [address] [facility] [id number], [place] [address] Feb, [facility] [place] [facility] [address] [facility] [id number], [place] [address] Aug, [facility] [place] [facility] [address] [facility] [id number], [place] [address] Jul, [facility] [place] [facility] [id number], [place] [address] 30 Jun, 2010 [facility] [place] [facility] [address] [id number] [place] [address] May, [facility] [place] [facility] [address] [id number] [place] [address] May, [facility] [place] [facility] [address] [id number] [place] [address] May, [facility] [place] [facility] [address] [id number], [place] [address] May, [facility] [place] [facility] [address] [id number] [place] [address] May, [facility] [place] [facility] [address] [id number] [place] [address] Aug, [facility] [place] [facility] [address] [id number], [place] [address] Jun, [facility] [place] [facility] [address] [id number], [place] [address] Jun, [facility] [place] [facility] [address] [id number], [place] [address] Jun, [facility] [place] [facility] [address] [id number], [place] [address] 24 May, 2009 [facility] [place] [facility] [address] [id number], [place] [address] 28 Apr, 2009 [facility] [place] [facility] [address] [id number], [place] [address] 27 Apr, 2009 [facility] [place] [facility] [address] [id number], [place] [address] 15 Apr, 2009 [facility] [place] [facility] [address] [id number], [place] [address] 20 Jan, 2009 [facility] [place] [facility] [address] [id number], [place] [address] 13 Oct, 2008 [facility] [place] [facility] [address] [facility] [id number] [place] [address] May, [facility] [address] [facility] [id number] [place] [address] May, IMMUNIZATIONS No Known Immunizations SOCIAL HISTORY Never Assessed REASON FOR VISIT Refill request PLAN OF CARE VITAL SIGNS MEDICATIONS Medication Instructions Dosage Frequency Start Date End Date Duration Status Savella 100 mg Orally Twice a day 1 tablet 12h Active RESULTS No Results PROCEDURES No Known [...] Dialysis Rut[facility] Reveles 2012 -Dr. Simon now [facility] Medical History Colonoscopy ([id number] 2 ) [...]
--- OUTSIDE RECORDS SUMMARY | 2017-12-22 19:28 | XMS REPORT ---
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 Name Role Phone CHELSY VILLAFANA Unavailable PROBLEMS Type Condition ICD9-CM Code OVL66-HK Code Onset Dates Condition Status SNOMED Code Problem Chronic pain syndrome G89.4 Active 794289959 Problem Type 2 diabetes mellitus with hyperglycemia E11.65 Active 576165141176316 Problem Primary insomnia F51.01 Active 7219057 Problem Bilateral lower extremity edema R60.0 Active 258188242 Problem Anemia in other chronic diseases classified elsewhere D63.8 Active 340994179 Problem Supplemental oxygen dependent Z99.81 Active 831876828223 Problem Right carpal tunnel syndrome G56.01 Active 021393181961450 Problem 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 Active 757305547190891 Problem Paresthesia of right upper extremity R20.2 Active 53037456 Problem Chronic kidney disease, stage 4 (severe) N18.4 Active 843832465 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 Active 005041611 Problem Psoriasis of scalp L40.9 Active 279416394 Problem Gastroesophageal reflux disease without esophagitis K21.9 Active 392784420 Problem Chronic obstructive pulmonary disease, unspecified COPD type J44.9 Active 68175474 Problem Type 2 diabetes mellitus with other diabetic kidney complication E11.29 Active 024326361 Problem Diabetic 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 Active 47547409 Problem History of DVT (deep vein thrombosis) Z86.718 Active 851207044 Problem skilled nursing current use of anticoagulant Z79.01 Active 561909807 Problem Oxygen desaturation during sleep G47.34 Active 099593483 Problem Essential hypertension I10 Active 55508244 Problem Depression, unspecified depression type F32.9 Active 90176780 Problem Sleep apnea in adult G47.33 Active [id number] ALLERGIES No Information ENCOUNTERS Encounter Location Date Diagnosis [facility] [place] [address] [address] Oct, Primary insomnia F51.01 [facility] [id number] [id number] Oct, Bilateral lower extremity edema R60.0 [place] [address] [address] Oct, [place] [address] [place] [id number] [place] [address] 37254- 1893 Sep, Type 2 diabetes mellitus with other diabetic kidney complication E11.29 and Chronic obstructive pulmonary disease, unspecified COPD type J44.9 [place] [address] [place] [id number] [place] [address] 76197- 7504 15 Aug, 2017 Type 2 diabetes mellitus with other diabetic kidney complication E11.29 [place] [id number] [place] [address] 79547- 9790 12 Aug, 2017 Gastroesophageal reflux disease without esophagitis K21.9 ; skilled nursing current use of anticoagulant Z79.01 ; Chronic pain syndrome G89.4 ; Essential hypertension I10 and Type 2 diabetes mellitus with other diabetic kidney complication E11.29 [place] [address] [address] 08 Aug, 2017 Chronic pain syndrome G89.4 [place] [address] [address] Aug, Type 2 diabetes mellitus with other diabetic kidney complication E11.29 [place] [address] [address] 0[address] Jul, Diabetic 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 [place] [id number] [place] [address] 61948- 9326 Jul, Primary insomnia F51.01 [place] [address] [address] Jul, [place] [address] [place] [id number] [address] 67225- 0814 Jul, Type 2 diabetes mellitus with other diabetic kidney complication E11.29 and Chronic obstructive pulmonary disease, unspecified COPD type J44.9 [place] [id number] [place] [address] 92860- 5457 Jul, Type 2 diabetes mellitus with other diabetic kidney complication E11.29 [place] [address] [place] [id number] [address] 64266- 4553 Jun, Type 2 diabetes mellitus with other diabetic kidney complication E11.29 [place] [address] [place] [id number] [address] 80188- 5438 Jun, [place] [address] [place] [id number] [address] 23337- 2201 Jun, Chronic obstructive pulmonary disease, unspecified COPD type J44.9 [place] [address] [place] [id number] [address] 01930- 4538 May, Type 2 diabetes mellitus with other diabetic kidney complication E11.29 [place] [address] [place] [id number] [address] 50894- 1348 May, 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 and Essential hypertension I10 [place] [id number] [place] [address] 34390- 0898 May, Anemia in other chronic diseases classified elsewhere D63.8 ; Chronic obstructive pulmonary disease, unspecified COPD type J44.9 ; Oxygen desaturation during sleep G47.34 ; Sleep apnea in adult G47.33 and Supplemental oxygen dependent Z99.81 [place] [id number] [place] [address] 33679- 8093 08 May, 2017 Type 2 diabetes mellitus with other diabetic kidney complication E11.29 ; Essential hypertension I10 ; Chronic pain syndrome G89.4 ; BMI 40.0-44.9, adult Z68.41 ; Gastroesophageal reflux disease without esophagitis K21.9 ; skilled nursing current use of anticoagulant Z79.01 ; skilled nursing 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 ; Diabetic 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 ; Edema of both legs R60.0 and Supplemental oxygen dependent Z99.81 [facility] [place] [address] [place] [id number] [place] [address] 27694- 8610 May, [place] [address] [place] [id number] [address] 33973- 8822 May, Essential hypertension I10 and Gastroesophageal reflux disease without esophagitis K21.9 [facility] [place] [address] [address]- 9865 May, [place] [address] [place] [id number] [address] 66136- 1755 May, Type 2 diabetes mellitus with other diabetic kidney complication E11.29 and 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 [place] [address] [place] [id number] [address] 66270- 9243 Apr, Chronic pain syndrome G89.4 and Essential hypertension I10 [place] [address] [place] [id number] [address] 01101- 3775 Apr, Type 2 diabetes mellitus with other diabetic kidney complication E11.29 [place] [address] [place] [id number] [address] 14642- 7540 Apr, Type 2 diabetes mellitus with other diabetic kidney complication E11.29 [place] [address] [place] [id number] [address] 07901- 6132 Apr, Essential hypertension I10 [place] [address] [place] [id number] [address] 44077- 0642 Apr, Gastroesophageal reflux disease without esophagitis K21.9 [facility] [place] [address] [place] [id number] [address] 18726- 5442 Apr, Type 2 diabetes mellitus with other diabetic kidney complication E11.29 [facility] [place] [address] [place] [id number] [place] [address] 41915- 4166 Apr, Type 2 diabetes mellitus with other diabetic kidney complication E11.29 and 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 [place] [address] [place] [id number] [place] [address] 99987- 1541 27 Mar, 2017 Encounter for immunization Z23 and Preoperative examination Z01.818 [place] [address] [place] [id number] [place] [address] 71770- 1053 23 Mar, 2017 [place] [address] [place] [id number] [address] 08889- 3465 12 Mar, 2017 Type 2 diabetes mellitus with other diabetic kidney complication E11.29 [place] [address] [place] [id number] [address] 37965- 6270 08 Mar, 2017 Type 2 diabetes mellitus with other diabetic kidney complication E11.29 [place] [address] [place] [id number] [address] 40456- 4344 06 Mar, 2017 Gastroesophageal reflux disease without esophagitis K21.9 [place] [address] [place] [id number] [address] 91981- 6778 Mar, Essential hypertension I10 [place] [address] [place] [id number] [address] 52596- 4228 Feb, skilled nursing current use of anticoagulant Z79.01 [place] [address] [place] [address] [id number] [address] 90701- 6926 Feb, Type 2 diabetes mellitus with other diabetic kidney complication E11.29 [place] [address] [place] [address] [id number] [address] 85543- 4489 Feb, Type 2 diabetes mellitus with other diabetic kidney complication E11.29 [place] [address] [place] [id number] [address] 14706- 0495 Feb, Type 2 diabetes mellitus with other diabetic kidney complication E11.29 [place] [address] [place] [address] [id number] [address] 10105- 0669 Feb, Gastroesophageal reflux disease without esophagitis K21.9 [place] [address] [place] [address] [id number] [address] 88039- 0827 Feb, Type 2 diabetes mellitus with other diabetic kidney complication E11.29 [place] [address] [address] 9247 Feb, 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 [facility] [place] [address] [id number] [address] 7725 Jan, 2017 Type 2 diabetes mellitus with other diabetic kidney complication E11.29 [facility] [place] [address] [address]- 5715 Jan, 2017 Type 2 diabetes mellitus with other diabetic kidney complication E11.29 [facility] [place] [address] [address] 2804 Jan, Chronic pain syndrome G89.4 [facility] [place] [id number] [address] 7924 Jan, [facility] [place] [id number] [address]- 6634 Jan, [facility] [place] [id number] [address]- 5524 Jan, [facility] [place] [id number] [address]- 5800 Jan, [facility] [place] [address] [address]- 9791 Jan, Primary insomnia F51.01 ; Type 2 diabetes mellitus with other diabetic kidney complication E11.29 ; Chronic pain syndrome G89.4 and Essential hypertension I10 [facility] [place] [address] [address]- 3299 Jan, Primary insomnia F51.01 [facility] [place] [address] [address]- 6684 Jan, Type 2 diabetes mellitus with other diabetic kidney complication E11.29 [facility] [place] [address] [address]- 5434 Jan, [facility] [place] [id number] [address]- 1298 07 Gerardo, 2017 Chronic obstructive pulmonary disease, unspecified COPD type J44.9 [facility] [place] [address] [address]- 3871 Jan, Essential hypertension I10 ; Type 2 diabetes mellitus with other diabetic kidney complication E11.29 ; Chronic obstructive pulmonary disease, unspecified COPD type J44.9 ; Chronic kidney disease, stage 4 (severe) N18.4 ; Right carpal tunnel syndrome G56.01 ; 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 ; 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 and Diabetic 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 [facility] [place] [address] [place] [id number] [address] 66997- 4041 Jan, Gastroesophageal reflux disease without esophagitis K21.9 [facility] [place] [address] [place] [id number] [place] [address] 52101- 7477 Dec, [facility] [place] [address] [place] [id number] [place] [address] 76815- 4131 Dec, [facility] [place] [address] [place] [id number] [place] [address] 25153- 5697 Dec, 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 ; Chronic pain syndrome G89.4 and Essential hypertension I10 [facility] [place] [address] [address]- 0401 Dec, [facility] [place] [address] [place] [id number] [address] 88133- 8060 Dec, Type 2 diabetes mellitus with other diabetic kidney complication E11.29 [facility] [place] [address] [address]- 6330 Dec, [facility] [place] [address] [place] [id number] [address] 32068- 7886 Dec, Gastroesophageal reflux disease without esophagitis K21.9 [facility] [place] [address] [address]- 0080 November, Type 2 diabetes mellitus with other diabetic kidney complication E11.29 [facility] [place] [id number] [address]- 0615 November, [facility] [place] [id number] [place] [address] 76431- 4590 November, Type 2 diabetes mellitus with other diabetic kidney complication E11.29 [facility] [place] [id number] [address]- 9799 November, [facility] [place] [address] [place] [id number] [address] 38017- 4250 November, Type 2 diabetes mellitus with other diabetic kidney complication E11.29 [facility] [place] [id number] [place] [address] 06809- 2276 November, [facility] [place] [address] [id number] [address]- 1523 Oct, Essential hypertension I10 [facility] [place] [address] [place] [id number] [address] 84969- 0485 Oct, Psoriasis of scalp L40.9 [facility] [place] [address] [address]- 9740 Oct, Essential hypertension I10 and Chronic pain syndrome G89.4 [facility] [place] [address] [address]- 2354 Oct, [facility] [place] [address] [address]- 5368 Sep, Type 2 diabetes mellitus with other diabetic kidney complication E11.29 [facility] [place] [address] [address]- 1967 Sep, [facility] [place] [address] [id number] [address]- 8229 Sep, Type 2 diabetes mellitus with other diabetic kidney complication E11.29 [facility] [place] [address] [address]- 5005 Sep, Type 2 diabetes mellitus with other diabetic kidney complication E11.29 [facility] [place] [address] [place] [address] [id number] [address] 53914- 5514 Sep, Type 2 diabetes mellitus with other diabetic kidney complication E11.29 ; Chronic kidney disease, stage 4 (severe) N18.4 ; Chronic obstructive pulmonary disease, unspecified COPD type J44.9 ; Iron deficiency anemia due to chronic blood loss D50.0 ; 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 ; Gastroesophageal reflux disease without esophagitis K21.9 ; Essential hypertension I10 ; Primary insomnia F51.01 ; Depression, unspecified depression type F32.9 ; Chronic pain syndrome G89.4 ; Wrist pain, right M25.531 ; Paresthesia of right upper extremity R20.2 and Psoriasis of scalp L40.[address] [address]252- 2983 Sep, [place] [id number] [address] 81854- 8047 Aug, Essential hypertension I10 [address] 79803- 7304 Aug, History of DVT (deep vein thrombosis) Z86.718 [place] [id number] [address] 48118- 7143 Aug, [place] [id number] [address] 39447- 3042 Jul, [place] [id number] [address] 12740- 0791 Jul, [place] [id number] [address] 35665- 9995 Jul, 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 ; Chronic pain syndrome G89.4 and Chronic kidney disease, stage 4 (severe) N18.4 [place] [address] [place] [id number] [address] 21430- 7406 Jul, [place] [id number] [address] 35878- 0637 Jul, [place] [address] [id number] [address]- 7747 Jul, [place] [address] [address]- 0735 Jul, [place] [address] [address]- 6530 Jul, [place] [address] [place] [id number] [address] 73911- 5122 Jul, Type 2 diabetes mellitus with other diabetic kidney complication E11.29 [address] [address]- 0808 16 Jul, 2016 History of DVT (deep vein thrombosis) Z86.718 [place] [address] [address]- 2220 23 Jun, 2016 [place] [id number] [address]- 5865 19 Jun, 2016 History of DVT (deep vein thrombosis) Z86.718 [place] [address] [address]- 5277 15 Jun, 2016 Post traumatic stress disorder (PTSD) F43.10 [place] [address] [address]- 6183 07 Jun, 2016 Type 2 diabetes mellitus with other diabetic kidney complication E11.29 ; Diabetic 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 ; Iron deficiency anemia due to chronic blood loss D50.0 ; Chronic obstructive pulmonary disease, unspecified COPD type J44.9 ; skilled nursing current use of anticoagulant Z79.01 ; History [...] pain M79.641 and Right wrist pain M25.531 [facility] [place] [address] [place] [address] [id number] [address] 73727- 0086 May, [facility] [place] [address] [place] [address] [id number] [address] 71593- 1612 May, [facility] [place] [address] [address] [id number] [address] 46694- 8789 May, [facility] [place] [address] [place] [address] [id number] [address] 23141- 2369 May, [facility] [place] [address] [address] [id number] [address] 13897- 6537 May, Anemia in other chronic diseases classified elsewhere D63.8 [facility] [place] [address] [place] [address] [id number] [address] 38182- 3907 May, [facility] [place] [address] [address] [id number] [address] 32139- 3390 Apr, [facility] [place] [address] [address] [id number] [address] 72474- 0925 27 Mar, 2016 Dermatofibroma D23.9 [facility] [place] [address] [address] [id number] [place] [address] 48063- 3307 20 Mar, 2016 [facility] [place] [address] [place] [address] [id number] [address] 62796- 3774 14 Mar, 2016 Chronic pain syndrome G89.4 [facility] [place] [address] [id number] [address] 97845 2546 09 Mar, 2016 [facility] [place] [id number] [address] 53369 2546 07 Mar, 2016 [facility] [place] [id number] [address] 01158- 2546 06 Mar, 2016 [facility] [place] [id number] [address] 293502- 6933 Feb, [facility] [place] [address] [address]- 4349 Feb, [facility] [place] [address] [address]- 9807 Feb, [facility] [place] [address] [address]- 2735 Feb, [facility] [place] [id number] [place] [address] 21056- 6915 Feb, [facility] [place] [address] [address]- 4018 Feb, [facility] [place] [id number] [place] [address] 50749- 8657 Feb, Type 2 diabetes mellitus with other diabetic kidney complication E11.29 ; Diabetic 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 ; Iron deficiency anemia due to chronic blood loss D50.0 ; Chronic obstructive pulmonary disease, unspecified COPD type J44.9 ; skilled nursing current use of anticoagulant Z79.01 ; History of DVT (deep vein thrombosis) Z86.718 ; Chronic pain syndrome G89.4 ; Oxygen desaturation during sleep G47.34 ; Sleep apnea in adult G47.33 ; Gastroesophageal reflux disease without esophagitis K21.9 ; Essential hypertension I10 ; Primary insomnia F51.01 ; Depression, unspecified depression type F32.9 and Renal failure, chronic, stage 4 (severe) N18.4 [facility] [place] [address] [address]- 0940 Feb, Skin tags, multiple acquired L91.8 [facility] [place] [id number] [address]- 6012 Jan, [facility] [id number] [address] Jan, Dental examination Z01.20 [facility] [place] [id number] [address]- 0678 Jan, [facility] [address] [address]- 4314 Jan, Type 2 diabetes mellitus with other diabetic kidney complication E11.29 ; Diabetic 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 ; Iron deficiency anemia due to chronic blood loss D50.0 ; Chronic obstructive pulmonary disease, unspecified COPD type J44.9 ; skilled nursing current use of anticoagulant Z79.01 ; History of DVT (deep vein thrombosis) Z86.718 ; Chronic pain syndrome G89.4 ; Oxygen desaturation during sleep G47.34 ; Sleep apnea in adult G47.33 ; Gastroesophageal reflux disease without esophagitis K21.9 ; Essential hypertension I10 ; Primary insomnia F51.01 ; Depression, unspecified depression type F32.9 ; Skin lesion L98.9 and Renal failure, chronic, stage 4 (severe) N18.[address] [place] [address] 38786- 7192 Dec, Diabetes type 2, uncontrolled E11.65 [place] [id number] [address] 83889- 7949 Dec, [place] [id number] [place] [address] 28688- 0453 Dec, Type 2 diabetes mellitus with other diabetic kidney complication E11.29 ; Diabetic 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 ; Iron deficiency anemia due to chronic blood loss D50.0 ; Chronic obstructive pulmonary disease, unspecified COPD type J44.9 ; 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 ; History of DVT (deep vein thrombosis) Z86.718 ; Chronic pain syndrome G89.4 ; Oxygen desaturation during sleep G47.34 ; Sleep apnea in adult G47.33 ; Gastroesophageal reflux disease without esophagitis K21.9 ; Essential hypertension I10 ; Primary insomnia F51.01 and Depression, unspecified depression type F32.9 [facility] [address] [id number] [id number] Dec, Dental caries K02.9 [facility] [id number] [place] [id number] Dec, [facility] [address] [id number] [id number] Dec, Dental examination Z01.20 [facility] [address] [id number] [place] [id number] November, Dental examination Z01.20 and Dental caries K02.9 [facility] [address] [id number] [place] [id number] Oct, [facility] [id number] [place] [address] [id number] Oct, [facility] [address] [id number] [place] [address] [id number] Sep, [facility] [address] [id number] [place] [address] [id number] Sep, [facility] [address] [id number] [place] [address] [id number] Sep, [facility] [id number] [place] [address] [id number] Sep, Other chronic pain 338.29 [facility] [address] [id number] [place] [address] [id number] Aug, Diabetes type 2, uncontrolled E11.65 and Morbid obesity due to excess calories E66.01 [facility] [id number] [place] [address] [id number] Aug, Hair loss L65.9 [facility] [id number] [place] [address] [id number] Aug, [facility] [address] [id number] [place] [address] [id number] Jul, [facility] [address] [id number] [place] [address] [id number] Jul, [facility] [address] [id number] [place] [address] [id number] Jun, [facility] [id number] [place] [address] [id number] Jun, Hair loss L65.9 and Disorder of the skin and subcutaneous tissue, unspecified L98.9 [facility] [id number] [place] [address] [id number] May, Type 2 diabetes mellitus with other diabetic kidney complication E11.29 ; Type 2 diabetes mellitus with hyperglycemia E11.65 ; Morbid obesity due to excess calories E66.01 and Essential hypertension I10 [id number] [place] [address] [id number] May, Diabetes type 2, uncontrolled E11.65 ; Encounter for immunization Z23 and Morbid obesity due to excess calories E66.01 [id number] [place] [address] [id number] May, [facility] [place] [address] [address] Apr, [id number] [place] [address] [id number] Apr, Hyperglycemia R73.[address] [id number] Apr, [address] [id number] Apr, Depression F32.9 ; Encounter for immunization Z23 ; Hyperglycemia R73.9 and Anemia in other chronic diseases classified elsewhere D63.8 [facility] [id number] [place] [address] [id number] Mar, [id number] [place] [address] [id number] Feb, Positive occult stool blood test 792.1 [id number] [place] [address] [id number] Feb, Depression 311 ; Other chronic pain 338.29 and Diabetes with renal manifestations, type II or unspecified type, not stated as uncontrolled 250.40 [facility] [place] [address]00565100[place] [id number] Feb, Occult blood in stools 792.1 [id number] [place] [address] [id number] Feb, Anemia 285.9 ; Occult blood positive stool 792.1 ; Unspecified essential hypertension 401.9 and Other chronic pain 338.29 [id number] [place] [address] [id number] Feb, [facility] [place] [address] [id number] [place] [id number] Feb, Anemia 285.9 [facility] [place] [id number] [place] [id number] Feb, [facility] [place] [id number] [place] [address] [id number] Feb, [facility] [place] [id number] [place] [address] [id number] Feb, Diabetes with renal manifestations, type II or unspecified type, not stated as uncontrolled 250.40 ; Other chronic pain 338.29 ; Unspecified essential hypertension 401.9 ; Anemia 285.9 and Depression 311 [facility] [place] [id number] [place] [address] [id number] Jan, [facility] [place] [id number] [place] [address] [id number] Jan, Anemia 285.9 and Follow up V67.9 [facility] [place] [id number] [place] [id number] Jan, [facility] [place] [id number] [place] [id number] Jan, [facility] [place] [id number] [place] [address] [id number] Jan, [facility] [place] [id number] [place] [address] [id number] Dec, [facility] [id number] [address] Oct, [facility] [id number] [place] [address]- 8999 Oct, [facility] [id number] [place] [address]- 7664 Sep, [facility] [place] [id number] [place] [id number] Sep, [facility] [id number] [place] [address]- 1918 Sep, [facility] [address] [id number] [place] [id number] Aug, [facility] [place] [facility] [address] [facility] [id number] [address] 3[address] Aug, 2014 [facility] [place] [facility] [address] [facility] [id number] [address]- 37[address] Aug, [facility] [address] [id number] [place] [id number] Aug, [facility] [place] [facility] [address] [facility] [id number] [address]- [address] Aug, [facility] [place] [facility] [address] [facility] [id number] [place] [address]- 3182 Aug, [facility] [address] [facility] [id number] [place] [id number] Aug, [facility] [place] [facility] [id number] [address] 487[address] Aug, [facility] [address] [facility] [id number] [place] [id number] Jul, [facility] [place] [facility] [id number] [address]- 2993 Jul, [facility] [place] [facility] [address]00565100[place] [address]- 4230 Jul, [facility] [address] [facility] [id number] [place] [id number] Jul, [facility] [place] [facility] [address] [facility] [id number] [address]- 2582 Jul, [facility] [address] [facility] [id number] [place] [id number] Jul, [facility] [place] [facility] [address] [facility] [id number] [address]- 9516 Jul, [facility] [address] [id number] [place] [id number] Jun, [facility] [address] [facility] [id number] [place] [id number] Jun, [facility] [place] [facility] [address] [facility] [id number] [place] [address]- 9367 Jun, [facility] [place] [facility] [address] [facility] [id number] [address]- 8996 Jun, [facility] [address] [facility] [id number] [place] [id number] Jun, [facility] [place] [facility] [address] [facility] [id number] [address]- 4556 Jun, [facility] [address] [facility] [id number] [place] [id number] May, [facility] [place] [facility] [address] [facility] [id number] [place] [address]- 7706 May, [facility] [place] [facility] [address] [facility] [id number] [place] [address]- 7141 May, [facility] [address] [facility] [id number] [place] [id number] Apr, [facility] [place] [facility] [address] [facility] [id number] [address]- 8956 Apr, [facility] [address] [id number] [place] [id number] Apr, [facility] [address] [facility] [id number] [place] [id number] Apr, [facility] [place] [facility] [address] [facility] [id number] [address]- 4475 Apr, [facility] [place] [facility] [address] [facility] [id number] [address] 2546 Apr, [facility] [address] [facility] [id number] [place] [id number] Mar, [facility] [place] [facility] [address] [facility] [id number] [address]- 8666 Mar, [facility] [address] [facility] [id number] [place], [place] [id number] Mar, [facility] [place] [facility] [address] [facility] [id number] [address]- 4620 Mar, [facility] [address] [id number] [place] [id number] Mar, [facility] [place] [facility] [address] [id number] [place] [address]- 8429 Mar, [facility] [address] [id number] [place] [id number] Mar, [facility] [place] [facility] [address] [id number] [address]- 8309 Mar, [facility] [address] [id number] [place] [id number] Mar, [facility] [place] [facility] [address] [id number] [place] [address]- 6929 Mar, [facility] [address] [id number] [place] [id number] Feb, [facility] [place] [facility] [address] [facility] [id number] [place] [address]- 4044 Feb, [facility] [address] [id number] [place] [id number] Jan, [facility] [place] [facility] [address] [facility] [id number] [place] [address]- 2493 Jan, [facility] [address] [id number] [place] [id number] Jan, [facility] [place] [facility] [address] [facility] [id number] [address]- 6920 Jan, [facility] [address] [id number] [place] [id number] Jan, [facility] [place] [facility] [address] [facility] [id number] [address]- 7453 Jan, [facility] [place] [facility] [address] [facility] [id number] [address]- 5594 Dec, [facility] [place] [facility] [address] [id number] [address]- 7914 Dec, [facility] [address] [facility] [id number] [place] [id number] November, [facility] [place] [facility] [address] [id number] [place] [address]- 5886 November, [facility] [address] [facility] [id number] [place] [id number] November, [facility] [place] [facility] [address] [facility] [id number] [place] [address]- 1206 November, [facility] [address] [facility] [id number] [place] [id number] Oct, [facility] [place] [facility] [address] [id number] [place]- 6111 Oct, [facility] [place] [facility] [address] [facility] [id number] [place]- 6162 Oct, [facility] [place] [facility] [address] [facility] [id number] [place] [address]- 9528 Oct, [facility] [place] [facility] [address] [facility] [id number] [place]- 5460 Oct, [facility] [place] [facility] [address] [facility] [id number] [place]- 2610 Oct, [facility] [address] [facility] [id number] [place] [id number] Sep, [facility] [place] [address] [facility] [id number] [place] [id number] Sep, [facility] [place] [facility] [address] [facility] [id number] [place] [address]- 0015 Sep, [facility] [place] [facility] [address] [facility] [id number] [place] [address]- 2230 Sep, [facility] [address] [facility] [id number] [place] [id number] Sep, [facility] [place] [facility] [address] [facility] [id number] [place] 64[place]- 9494 Sep, [facility] [place] [facility] [address] [facility] [id number] [place]07460[place]- 8058 Aug, [facility] [address] [facility] [id number] [place] [address]- 2546 Aug, [facility] [address] [id number] [place] [id number] Aug, [facility] [address] [id number] [place] [id number] Aug, [facility] [place] [facility] [address] [id number] [address]- 2546 Aug, [facility] [address] [id number] [place] [id number] Aug, [facility] [place] [facility] [address] [id number] [address]- 2546 Aug, [facility] [address] [facility] [id number] [place] [id number] Aug, [facility] [address]00565100[place] [address]- 2546 Aug, [facility] [address] [facility] [id number] [place] [id number] Aug, [facility] [place] [facility] [address]00565100[place] [address]- 2546 Aug, [facility] [address] [id number] [place] [id number] Aug, [facility] [place] [facility] [id number] [address]- 2546 Aug, [facility] [place] [facility] [address] [facility] [id number] [place] [address]- 2546 Jul, [facility] [address] [facility] [id number] [place] [id number] Jun, [facility] [place] [facility] [address] [id number] [address]- 2546 Jun, [facility] [place] [facility] [address] [id number] [address]- 2546 Jun, [facility] [place] [facility] [address] [id number] [place] [address]- 0320 16 Jun, 2013 [facility] [address] [facility] [id number] [place] [id number] Jun, [facility] [place] [facility] [address] [id number] [address]- 0439 Jun, [facility] [place] [facility] [address] [facility] [id number] [place] [address]- 7845 Jun, [facility] [address] [facility] [id number] [place] [id number] Jun, [facility] [place] [facility] [address] [facility] [id number] [address]- 3386 Jun, [facility] [place] [facility] [address] [id number] [address]- 6403 May, [facility] [id number] [place] [id number] May, [facility] [place] [facility] [address] [id number] [address]- 3631 May, [facility] [place] [facility] [address]65[address] [address]- 9761 May, [facility] [place] [facility] [address] [id number] [address]- 6981 May, [facility] [place] [facility] [address] [facility] [id number] [place] [address]- 2446 May, [facility] [address] [facility] [id number] [place] [id number] May, [facility] [place] [facility] [address] [facility] [id number] [address]- 1519 May, [facility] [address] [facility] [id number] [place] [id number] May, [facility] [place] [facility] [address] [facility] [id number] [place] [address]- 6078 May, [facility] [id number] [place] 827773649 Apr, [facility] [address] [id number] [address]- 2192 Apr, [facility] [address] [facility] [id number] [address]- 9446 Apr, [facility] [place] [address] [facility] [id number] [place] [id number] Apr, [facility] [address] [id number] [address]- 1776 Apr, [facility] [address] [id number] [address]- 7464 Apr, [facility] [place] [address] [facility] [id number] [place] [id number] Apr, [facility] [address] [facility] [id number] [place] [address]- 5995 Apr, [facility] [address] [facility] [id number] [address]- 9047 Apr, [facility] [address] [facility] [id number] [place] [address]- 6653 Apr, [facility] [place] [address] [facility] [id number] [place] [id number] Apr, [facility] [address] [facility] [id number] [address]- 7316 Apr, [facility] [place] [address] [facility] [id number] [place] [id number] Apr, [facility] [address] [id number] [place] [address]- 8999 Apr, [facility] [place] [address] [facility] [id number] [place] [id number] Apr, [facility] [place] [facility] [address] [facility] [id number] [place] [address]- 7809 Apr, [facility] [place] [facility] [address] [facility] [id number] [address]- 9784 Apr, [facility] [place] [facility] [address] [facility] [id number] [address]- 4104 Apr, [facility] [address] [id number] [place] [id number] Apr, [facility] [address] [facility] [id number] [place] [address]- 0114 Mar, [facility] [address] [facility] [id number] [address]- 8931 Mar, [facility] [address] [id number] [place] [id number] Mar, [facility] [address] [id number] [place] [id number] Mar, [facility] [address] [id number] [place] [id number] Mar, [facility] [address] [id number] [place] [id number] Feb, [facility] [address] [id number] [place] [id number] Feb, [facility] [address] [id number] [place] [id number] Feb, [facility] [address] [facility] [id number] [place] [address]- 0591 Feb, [facility] [address] [id number] [place] [id number] Feb, [facility] [address] [id number] [place] [id number] Feb, [facility] [address] [id number] [place] [id number] Feb, [facility] [address] [id number] [place] [id number] Feb, [facility] [address] [id number] [place] [id number] Feb, [facility] [address] [id number] [place] [id number] Jan, [facility] [address] [id number] [place] [id number] Jan, [facility] [address] [id number] [place] [id number] Jan, [facility] [address] [id number] [place] [id number] Jan, [facility] [place] [address] [id number] [place] [id number] Jan, [facility] [address] [facility] [id number] [place] [id number] [address] Jan, [facility] [place] [address] [id number] [place] [id number] Jan, [facility] [place] [address] [id number] [place] [id number] Jan, [facility] [place] [address] [id number] [place] [id number] Dec, [facility] [address] [id number] [place] [id number] November, [facility] [address] [id number] [place] [id number] November, [facility] [address] [id number] [place] [id number] November, [facility] [address] [id number] [place] [id number] November, [facility] [address] [id number] [place] [id number] November, [facility] [address] [id number] [place] [id number] November, [facility] [address] [id number] [place] [id number] Jul, [facility] [address] [id number] [place] [id number] Jul, [facility] [address] [id number] [place] [id number] Jul, [facility] [address] [id number] [place] [id number] Jun, [facility] [address] [id number] [place] [address] Jun, [facility] [address] [id number] [place] [id number] May, [facility] [address] [facility] [id number] [place] [address] May, [facility] [address] [id number] [place] [id number] May, [facility] [address] [facility] [id number] [place] [address] May, [facility] [address] [facility] [id number] [place] [id number] May, [facility] [address] [facility] [id number] [place] [address] May, [facility] [address] [facility] [id number] [place] [id number] Apr, [facility] [id number] [place] [address] Apr, [facility] [address] [facility] [id number] [place] [address] Apr, [facility] [address] [facility] [id number] [place] [id number] Apr, [facility] [address] [facility] [id number] [place] [id number] Apr, [facility] [id number] [address] Apr, [facility] [address] [facility] [id number] [place] [address] Apr, [facility] [address] [facility] [id number] [place] [id number] Apr, [facility] [address] [facility] [id number] [place] [address] Apr, [facility] [address] [id number] [place] [id number] Apr, [facility] [address] [id number] [place] [id number] Apr, [facility] [address] [id number] [place] [id number] Mar, [facility] [address] [id number] [place] [id number] Feb, [facility] [place] [address] [id number] [place] [id number] Jan, [facility] [place] [address] [id number] [place] [id number] Dec, [facility] [place] [address] [id number] [place] [id number] Dec, [facility] [place] [address] [id number] [place] [id number] Dec, [facility] [place] [address] [id number] [place] [id number] Dec, [facility] [address] [id number] [place] [id number] Dec, [facility] [address] [id number] [place] [id number] November, [facility] [address] [id number] [place] [id number] November, [facility] [address] [id number] [place] [id number] November, [facility] [address] [facility] [id number] [place] [address] November, [facility] [address] [id number] [place] [id number] November, [facility] [address] [id number] [place] [id number] November, [facility] [address] [id number] [place] [id number] Oct, [facility] [address] [id number] [place] [id number] Oct, [facility] [address] [address] [id number] [place] [id number] Oct, [facility] [address] [id number] [place] [id number] Oct, [facility] [address] [id number] [place] [id number] Oct, [facility] [address] [id number] [place] [id number] Oct, [facility] [address] [id number] [place] [id number] Sep, [facility] [address] [id number] [place] [id number] Aug, [facility] [address] [id number] [place] [id number] Aug, [facility] [address] [id number] [place] [id number] Jul, [facility] [place] [facility] [address] [id number] [address] Jun, [facility] [place] [facility] [address] [id number] [address] Jun, [facility] [place] [facility] [id number] [address] Jun, [facility] [place] [facility] [id number] [address] Jun, [facility] [place] [facility] [id number] May, [facility] [place] [facility] [id number] [address] May, [facility] [place] [facility] [id number] [address] Apr, [facility] [place] [facility] [address] [id number] [address] Apr, [facility] [place] [facility] [address] [id number] [address] Apr, [facility] [place] [facility] [address] [facility] [id number] [address] Feb, [facility] [place] [facility] [id number] [address] 15 Aug, 2010 [facility] [place] [facility] [address] [id number] [place] [address] 18 Jul, 2010 [facility] [place] [facility] [address] [id number] [place] [address] 30 Jun, 2010 [facility] [place] [facility] [address] [id number] [place] [address] May, [facility] [place] [facility] [address] [id number] [place] [address] May, [facility] [place] [facility] [address] [id number] [place] [address] May, [facility] [place] [facility] [address] [id number] [place] [address] May, [facility] [place] [facility] [address] [id number] [place] [address] May, [facility] [place] [facility] [address] [id number] [place] [address] Aug, [facility] [place] [facility] [address] [id number] [place] [address] Jun, [facility] [place] [facility] [address] [id number] [address] Jun, [facility] [place] [facility] [address] [id number] [address] Jun, [facility] [place] [facility] [address] [id number] [place] [address] May, [facility] [place] [facility] [address] [id number] [address] Apr, [facility] [place] [facility] [address] [id number] [address] Apr, [facility] [place] [facility] [address] [facility] [id number] [address] 15 Apr, 2009 [facility] [place] [facility] [address] [facility] [id number] [place] [address] Jan, [facility] [place] [address] [facility] [id number] [place] [address] Oct, [facility] [place] [address] [facility] [id number] [place] [address] May, [facility] [place] [address] [facility] [id number] [address] May, IMMUNIZATIONS No Known Immunizations SOCIAL HISTORY Never Assessed REASON FOR VISIT Refill request PLAN OF CARE VITAL SIGNS MEDICATIONS Medication Instructions Dosage Frequency Start Date End Date Duration Status NovoLog Flexpen 100 UNIT/ML ICD10- E11.29 3 times a day with meals 50 Jul, Active RESULTS No Results PROCEDURES No [...] Dialysis Ruthy Reveles 2012 -Dr. Simon now [facility] Medical History Colonoscopy (polyps 2 ) [...]
--- OUTSIDE RECORDS SUMMARY | 2017-12-22 19:29 | XMS REPORT ---
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 Active 944646789 Problem 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 Active [id number] Problem Chronic kidney disease, stage 4 (severe) N18.4 Active 725522929 Problem Type 2 diabetes mellitus with hyperglycemia E11.65 Active 379613523529550 Problem Psoriasis of scalp L40.9 Active 656983675 Problem Paresthesia of right upper extremity R20.2 Active 54502797 Problem Diabetic 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 Active 32928830 Problem Gastroesophageal reflux disease without esophagitis K21.9 Active 741773324 Problem Anemia in other chronic diseases classified elsewhere D63.8 Active 098528213 Problem Type 2 diabetes mellitus with other diabetic kidney complication E11.29 Active 554110072 Problem Depression, unspecified depression type F32.9 Active 08624847 Problem History of DVT (deep vein thrombosis) Z86.718 Active 196854066 Problem Chronic obstructive pulmonary disease, unspecified COPD type J44.9 Active 23229251 Problem 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 Active 934571377 Problem Oxygen desaturation during sleep G47.34 Active 896659520 Problem Essential hypertension I10 Active 94200836 ALLERGIES No Information ENCOUNTERS Encounter Location Date Diagnosis [facility] [address] [facility] [id number] [id number] Oct, [facility] [address] [address] Oct, [facility] [id number] [place] [address] 75142- 9359 Oct, [place] [address] [place] [address] 24741- 6385 Sep, Type 2 diabetes mellitus with other diabetic kidney complication E11.29 and Chronic obstructive pulmonary disease, unspecified COPD type J44.9 [place] [id number] [address] 7[address] 15 Aug, 2017 Type 2 diabetes mellitus with other diabetic kidney complication E11.29 [place] [address] [place] [address] 37045- 9511 12 Aug, 2017 Gastroesophageal reflux disease without esophagitis K21.9 ; custodial current use of anticoagulant Z79.01 ; Chronic pain syndrome G89.4 ; Essential hypertension I10 and Type 2 diabetes mellitus with other diabetic kidney complication E11.29 [place] [address] [address] 8430 08 Aug, 2017 Chronic pain syndrome G89.4 [place] [address] [place] [address] 24507- 6685 Aug, Type 2 diabetes mellitus with other diabetic kidney complication E11.29 [place] [address] [address] 2219 Jul, Diabetic 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 [place] [address] [address] 3122 Jul, Primary insomnia F51.01 [place] [id number] [place] [address] 61081- 6190 Jul, [place] [address] [place] [address] 30222- 4647 Jul, Type 2 diabetes mellitus with other diabetic kidney complication E11.29 and Chronic obstructive pulmonary disease, unspecified COPD type J44.9 [place] [address] [address] 5226 Jul, Type 2 diabetes mellitus with other diabetic kidney complication E11.29 [place] [address] [address] 2377 Jun, Type 2 diabetes mellitus with other diabetic kidney complication E11.29 [place] [id number] [place] [address] 30013- 0663 Jun, [place] [id number] [place] [address] 90497- 1516 Jun, Chronic obstructive pulmonary disease, unspecified COPD type J44.9 [place] [id number] [place] [address] 92415- 6476 May, Type 2 diabetes mellitus with other diabetic kidney complication E11.29 [place] [id number] [address] 8849 May, 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 and Essential hypertension I10 [address] [place] [address] 10585- 7199 May, Anemia in other chronic diseases classified elsewhere D63.8 ; Chronic obstructive pulmonary disease, unspecified COPD type J44.9 ; Oxygen desaturation during sleep G47.34 ; Sleep apnea in adult G47.33 and Supplemental oxygen dependent Z99.81 [address] [place] [address] 87859- 7319 May, Type 2 diabetes mellitus with other diabetic kidney complication E11.29 ; Essential hypertension I10 ; Chronic pain syndrome G89.4 ; BMI 40.0-44.9, adult Z68.41 ; Gastroesophageal reflux disease without esophagitis K21.9 ; 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 ; 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 ; Diabetic 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 ; Edema of both legs R60.0 and Supplemental oxygen dependent Z99.81 [place] [id number] [place] [address] 93958- 8578 08 May, 2017 [facility] [id number] [place] [address] 16940- 3760 May, Essential hypertension I10 and Gastroesophageal reflux disease without esophagitis K21.9 [facility] [id number] [place] [address] 84418- 9731 May, [facility] [address] 80327- 4832 May, Type 2 diabetes mellitus with other diabetic kidney complication E11.29 and custodial current use of anticoagulant Z79.01 [place] [address] 81617- 4426 Apr, Chronic pain syndrome G89.4 and Essential hypertension I10 [place] [id number] [place] [address] 00829- 9039 Apr, Type 2 diabetes mellitus with other diabetic kidney complication E11.29 [facility] [id number] [place] [address] 05028- 7711 Apr, Type 2 diabetes mellitus with other diabetic kidney complication E11.29 [place] [id number] [place] [address] 57990- 9970 Apr, Essential hypertension I10 [facility] [id number] [place] [address] 03563- 2053 Apr, Gastroesophageal reflux disease without esophagitis K21.9 [facility] [id number] [place] [address] 02202- 6580 Apr, Type 2 diabetes mellitus with other diabetic kidney complication E11.29 [facility] [id number] [place] [address] 72211- 5548 Apr, Type 2 diabetes mellitus with other diabetic kidney complication E11.29 and custodial current use of anticoagulant Z79.01 [facility] [id number] [place] [address] 20198- 9200 Mar, Encounter for immunization Z23 and Preoperative examination Z01.818 [facility] [id number] [place] [address] 57163- 2161 Mar, [place] [id number] [place] [address] 65054- 2476 Mar, Type 2 diabetes mellitus with other diabetic kidney complication E11.29 [facility] [id number] [place] [address] 62753- 2546 Mar, Type 2 diabetes mellitus with other diabetic kidney complication E11.29 [place] [id number] [place] [address] 13666- 5098 Mar, Gastroesophageal reflux disease without esophagitis K21.9 [place] [id number] [place] [address] 54181- 0977 Mar, Essential hypertension I10 [place] [address] 18527- 9551 Feb, 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 [place] [id number] [place] [address] 21702- 5840 Feb, Type 2 diabetes mellitus with other diabetic kidney complication E11.29 [place] [id number] [place] [address] 59019- 5312 Feb, Type 2 diabetes mellitus with other diabetic kidney complication E11.29 [place] [id number] [place] [address] 41679- 8803 Feb, Type 2 diabetes mellitus with other diabetic kidney complication E11.29 [place] [id number] [place] [address] 18031- 0717 Feb, Gastroesophageal reflux disease without esophagitis K21.9 [facility] [id number] [place] [address] 61212- 2541 Feb, Type 2 diabetes mellitus with other diabetic kidney complication E11.29 [place] [id number] [place] [address] 23427- 8216 01 Aug, 2017 custodial current use of anticoagulant Z79.01 [facility] [address] [address] 3472 Jan, 2017 Type 2 diabetes mellitus with other diabetic kidney complication E11.29 [facility] [address] [address] 2546 Jan, Type 2 diabetes mellitus with other diabetic kidney complication E11.29 [facility] [id number] [place] [address] 61493- 3674 Jan, Chronic pain syndrome G89.4 [facility] [address] [address]- 4527 Jan, [facility] [id number] [place] [address] 60747- 9401 Jan, [facility] [id number] [place] [address] 82942- 9210 Jan, [facility] [id number] [place] [address] 33139- 3096 Jan, [facility] [address] [place] [address] 35040- 1159 Jan, Primary insomnia F51.01 ; Type 2 diabetes mellitus with other diabetic kidney complication E11.29 ; Chronic pain syndrome G89.4 and Essential hypertension I10 [facility] [address] [address]- 4517 Jan, Primary insomnia F51.01 [facility] [address] [address]- 8386 Jan, Type 2 diabetes mellitus with other diabetic kidney complication E11.29 [facility] [address] [address]- 4115 Jan, [facility] [address] [address]- 7470 Jan, Chronic obstructive pulmonary disease, unspecified COPD type J44.9 [facility] [id number] [place] [address] 53766- 4511 Jan, Essential hypertension I10 ; Type 2 diabetes mellitus with other diabetic kidney complication E11.29 ; Chronic obstructive pulmonary disease, unspecified COPD type J44.9 ; Chronic kidney disease, stage 4 (severe) N18.4 ; Right carpal tunnel syndrome G56.01 ; 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 ; termite control technician (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 and Diabetic 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 [facility] [id number] [place] [address] 13971- 3794 Jan, Gastroesophageal reflux disease without esophagitis K21.9 [facility] [id number] [place] [address] 78153- 2071 Dec, [facility] [id number] [place] [address] 97594- 7289 Dec, [facility] [id number] [place] [address] 01843- 0799 Dec, custodial current use of anticoagulant Z79.01 ; Chronic pain syndrome G89.4 and Essential hypertension I10 [facility] [id number] [place] [address] 29792- 2805 Dec, [facility] [id number] [place] [address] 91264- 9572 Dec, Type 2 diabetes mellitus with other diabetic kidney complication E11.29 [facility] [id number] [place] [address] 32394- 3170 Dec, [facility] [id number] [place] [address] 83336- 1621 Dec, Gastroesophageal reflux disease without esophagitis K21.9 [facility] [id number] [place] [address] 02802- 6712 November, Type 2 diabetes mellitus with other diabetic kidney complication E11.29 [facility] [id number] [place] [address] 94707- 9858 November, [place] [address] [address]- 3446 November, Type 2 diabetes mellitus with other diabetic kidney complication E11.29 [facility] [address] [address]- 4685 November, [facility] [address] [address]- 2133 November, Type 2 diabetes mellitus with other diabetic kidney complication E11.29 [facility] [address] [address]- 1510 November, [facility] [id number] [place] [address] 93058- 8341 Oct, Essential hypertension I10 [facility] [id number] [place] [address] 71218- 5450 Oct, Psoriasis of scalp L40.9 [facility] [id number] [place] [address] 72753- 2548 Oct, Essential hypertension I10 and Chronic pain syndrome G89.4 [facility] [address] [place] [address] 26741- 5230 Oct, [facility] [address] [address]- 7374 Sep, Type 2 diabetes mellitus with other diabetic kidney complication E11.29 [facility] [address] [address]- 9760 Sep, [facility] [address] [address]- 2542 Sep, Type 2 diabetes mellitus with other diabetic kidney complication E11.29 [facility] [address] 5746 Sep, Type 2 diabetes mellitus with other diabetic kidney complication E11.29 [facility] [address] [address]- 6370 09 Mar, 2017 Type 2 diabetes mellitus with other diabetic kidney complication E11.29 ; Chronic kidney disease, stage 4 (severe) N18.4 ; Chronic obstructive pulmonary disease, unspecified COPD type J44.9 ; Iron deficiency anemia due to chronic blood loss D50.0 ; custodial current use of anticoagulant Z79.01 ; Gastroesophageal reflux disease without esophagitis K21.9 ; Essential hypertension I10 ; Primary insomnia F51.01 ; Depression, unspecified depression type F32.9 ; Chronic pain syndrome G89.4 ; Wrist pain, right M25.531 ; Paresthesia of right upper extremity R20.2 and Psoriasis of scalp L40.9 [place] [id number] [place] [address] 07231- 9208 Sep, [place] [address] 05651- 4958 Aug, Essential hypertension I10 [address] 78056- 7095 Aug, History of DVT (deep vein thrombosis) Z86.718 [place] [id number] [place] [address] 90363- 0295 Aug, [place] [address] 52982- 8188 Jul, [place] [id number] [place] [address] 23204- 9744 Jul, [place] [id number] [place] [address] 53145- 5177 Jul, 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 ; Chronic pain syndrome G89.4 and Chronic kidney disease, stage 4 (severe) N18.4 [place] [address] 95905- 5001 Jul, [place] [id number] [place] [address] 86510- 4194 Jul, [place] [address] 25439- 8077 Jul, [place] [address] [address]- 0388 Jul, [place] [id number] [place] [address] 40548- 7293 Jul, [place] [id number] [place] [address] 71065- 7739 Jul, Type 2 diabetes mellitus with other diabetic kidney complication E11.29 [place] [id number] [place] [address] 50929- 2435 16 Jul, 2016 History of DVT (deep vein thrombosis) Z86.718 [place] [id number] [place] [address] 13960- 2750 Jun, [place] [id number] [place] [address] 09812- 8222 Jun, History of DVT (deep vein thrombosis) Z86.718 [place] [address] [place] [address] 30679- 5318 15 Jun, 2016 Post traumatic stress disorder (PTSD) F43.10 [place] [id number] [place] [address] 85110- 1632 07 Jun, 2016 Type 2 diabetes mellitus with other diabetic kidney complication E11.29 ; Diabetic 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 ; Iron deficiency anemia due to chronic blood loss D50.0 ; Chronic obstructive pulmonary disease, unspecified COPD type J44.9 ; 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 ; History [...] pain M79.641 and Right wrist pain M25.531 [facility] [address] [id number] [place] [address]- 3968 28 May, 2016 [facility] [id number] [place] [address], [place] [address]- 1526 May, [facility] [address] [place] [address] 2540 May, [facility] [id number] [place] [address], [place] [address]- 1216 15 May, 2016 [facility] [address] [place] [address], [place] [address]- 8515 May, Anemia in other chronic diseases classified elsewhere D63.8 [facility] [address] [place] [address], [place] [address]- 1318 May, [facility] [id number] [place] [address] 32130- 3158 Apr, [facility] [address] [place] [address], [place] [address]- 0811 27 Mar, 2016 Dermatofibroma D23.9 [facility] [id number] [place] [address], [place] [address]- 0879 20 Mar, 2016 [facility] [address] [address]- 2548 14 Mar, 2016 Chronic pain syndrome G89.4 [facility] [address] [address] 2549 09 Mar, 2016 [facility] [address] [address] 2543 07 Mar, 2015 [facility] [id number] [place] [address], [place] [address] 2546 06 Mar, 2016 [facility] [address] [address] 2547 30 Feb, 2016 [facility] [address] [place] [address] 12749- 5103 Feb, [facility] [address] [address]- 1483 Feb, [facility] [id number] [place] [address] 21601- 9989 Feb, [facility] [id number] [place] [address] 24122- 5282 Feb, [facility] [id number] [place] [address] 03982- 5234 Feb, [place] [id number] [place] [address] 15350- 2441 Feb, Type 2 diabetes mellitus with other diabetic kidney complication E11.29 ; Diabetic 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 ; Iron deficiency anemia due to chronic blood loss D50.0 ; Chronic obstructive pulmonary disease, unspecified COPD type J44.9 ; 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 ; History of DVT (deep vein thrombosis) Z86.718 ; Chronic pain syndrome G89.4 ; Oxygen desaturation during sleep G47.34 ; Sleep apnea in adult G47.33 ; Gastroesophageal reflux disease without esophagitis K21.9 ; Essential hypertension I10 ; Primary insomnia F51.01 ; Depression, unspecified depression type F32.9 and Renal failure, chronic, stage 4 (severe) N18.4 [facility] [id number] [place] [address] 77517- 2638 Feb, Skin tags, multiple acquired L91.8 [facility] [id number] [place] [address] 31046- 0087 Jan, [facility] [address] [place] [address] [id number] Jan, Dental examination Z01.20 [facility] [id number] [place] [address] 26413- 6857 Jan, [facility] [id number] [place] [address] 94413- 2724 Jan, Type 2 diabetes mellitus with other diabetic kidney complication E11.29 ; Diabetic 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 ; Iron deficiency anemia due to chronic blood loss D50.0 ; Chronic obstructive pulmonary disease, unspecified COPD type J44.9 ; 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 ; History of DVT (deep vein thrombosis) Z86.718 ; Chronic pain syndrome G89.4 ; Oxygen desaturation during sleep G47.34 ; Sleep apnea in adult G47.33 ; Gastroesophageal reflux disease without esophagitis K21.9 ; Essential hypertension I10 ; Primary insomnia F51.01 ; Depression, unspecified depression type F32.9 ; Skin lesion L98.9 and Renal failure, chronic, stage 4 (severe) N18.4 [facility] [id number] [place] [address] 44515- 9027 Dec, Diabetes type 2, uncontrolled E11.[address] 86956- 7413 Dec, [address] 15473- 2606 Dec, Type 2 diabetes mellitus with other diabetic kidney complication E11.29 ; Diabetic 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 ; Iron deficiency anemia due to chronic blood loss D50.0 ; Chronic obstructive pulmonary disease, unspecified COPD type J44.9 ; custodial current use of anticoagulant Z79.01 ; History of DVT (deep vein thrombosis) Z86.718 ; Chronic pain syndrome G89.4 ; Oxygen desaturation during sleep G47.34 ; Sleep apnea in adult G47.33 ; Gastroesophageal reflux disease without esophagitis K21.9 ; Essential hypertension I10 ; Primary insomnia F51.01 and Depression, unspecified depression type F32.9 [facility] [id number] [place] [address] [id number] Dec, Dental caries K02.9 [facility] [id number] [place] [address] [id number] Dec, [facility] [address] [place] [address] [id number] Dec, Dental examination Z01.20 [facility] [address] [id number] [place] [id number] November, Dental examination Z01.20 and Dental caries K02.9 [facility] [id number] [place] [address] [id number] Oct, [facility] [address] [id number] [id number] Oct, [facility] [id number] [place] [address] [id number] Sep, [facility] [id number] [place] [address] [id number] Sep, [facility] [address] [id number] [place] [address] [id number] Sep, [facility] [address] [id number] [place] [address] [id number] Sep, Other chronic pain 338.29 [facility] [id number] [place] [address] [id number] Aug, Diabetes type 2, uncontrolled E11.65 and Morbid obesity due to excess calories E66.01 [facility] [address] [id number] [id number] Aug, Hair loss L65.9 [facility] [id number] [place] [address] [id number] Aug, [facility] [id number] [place] [address] [id number] Jul, [facility] [id number] [place] [address] [id number] Jul, [facility] [address] [id number] [place] [address] [id number] Jun, [facility] [id number] [place] [address] [id number] Jun, Hair loss L65.9 and Disorder of the skin and subcutaneous tissue, unspecified L98.9 [facility] [address] [id number], [place] [id number] May, Type 2 diabetes mellitus with other diabetic kidney complication E11.29 ; Type 2 diabetes mellitus with hyperglycemia E11.65 ; Morbid obesity due to excess calories E66.01 and Essential hypertension I10 [facility] [id number] [place] [address] [id number] May, Diabetes type 2, uncontrolled E11.65 ; Encounter for immunization Z23 and Morbid obesity due to excess calories E66.01 [facility] [id number] [place] [address] [id number] May, [facility] [address] [address] Apr, [facility] [id number] [place] [address] [id number] Apr, Hyperglycemia R73.[address] [id number] Apr, [place] [id number] [place] [address] [id number] Apr, Depression F32.9 ; Encounter for immunization Z23 ; Hyperglycemia R73.9 and Anemia in other chronic diseases classified elsewhere D63.8 [facility] [address] [id number] [id number] Mar, [id number] [place] [address] [id number] Feb, Positive occult stool blood test 792.1 [place] [id number] [place] [address] [id number] Feb, Depression 311 ; Other chronic pain 338.29 and Diabetes with renal manifestations, type II or unspecified type, not stated as uncontrolled 250.40 [facility] [address]00565100[place] [id number][place] [address] Feb, Occult blood in stools 792.1 [address] [id number] [place] [address] [id number] Feb, Anemia 285.9 ; Occult blood positive stool 792.1 ; Unspecified essential hypertension 401.9 and Other chronic pain 338.29 [address] [place] [address] [id number] Feb, [place] [id number] [place] [address] [id number] Feb, Anemia 285.9 [facility] [id number], [place] [id number] Feb, [facility] [id number] [place] [address] [id number] Feb, [facility] [id number], [place] [id number] Feb, Diabetes with renal manifestations, type II or unspecified type, not stated as uncontrolled 250.40 ; Other chronic pain 338.29 ; Unspecified essential hypertension 401.9 ; Anemia 285.9 and Depression 311 [facility] [id number], [place] [id number] Jan, [facility] [id number] [place] [address] [id number] Jan, Anemia 285.9 and Follow up V67.9 [facility] [id number], [place] [id number] Jan, [facility] [id number] [place] [address] [id number] Jan, [facility] [id number], [place] [id number] Jan, [facility] [id number] [place] [address] [id number] Dec, [facility] [id number] [address] Oct, [facility] [id number] [place] [address] 2546 Oct, [facility] [id number] [address] 6709 Sep, [facility] [id number], [place] [id number] Sep, [facility] [id number] [place] [address] 73857 2546 Sep, [facility] [address] [id number], [place] [id number] Aug, [facility] [place] [facility] [address] [facility] [id number] [place] [address] 0[address] Aug, 2014 [facility] [place] [facility] [address] [facility] [id number] [place] [address]- 7[address] Aug, [facility] [address] [facility] [id number], [place] [id number] Aug, [facility] [place] [facility] [address] [facility] [id number] [place] [address]- 7823 Aug, [facility] [place] [facility] [address] [facility] [id number] [place] [address]- 2624 Aug, [facility] [address] [facility] [id number] [place] [id number] Aug, [facility] [place] [facility] [address]00565100[place] [address]- 7298 Aug, [facility] [id number], [place] [id number] Jul, [facility] [place] [facility] [address] [facility] [id number] [place] [address]- 6146 Jul, [facility] [place] [facility] [address]00565100[place] [address]- 1425 Jul, [facility] [address] [facility] [id number], [place] [id number] Jul, [facility] [place] [facility] [address] [facility] [id number] [place] [address]- 2652 Jul, [facility] [address] [facility] [id number], [place] [id number] Jul, [facility] [place] [facility] [address] [facility] [id number] [place] [address]- 2546 Jul, [facility] [address] [facility] [id number], [place] [id number] Jun, [facility] [address] [facility] [id number], [place] [id number] Jun, [facility] [place] [facility] [address] [id number] [address]- 6686 Jun, [facility] [place] [facility] [address] [id number] [place] [address]- 6596 Jun, [facility] [address] [id number] [place] [id number] Jun, [facility] [place] [facility] [address] [facility] [id number] [place] [address]- 4626 Jun, [facility] [address] [id number], [place] [id number] May, [facility] [place] [facility] [address] [facility] [id number] [place] [address]- 4957 May, [facility] [place] [facility] [address] [facility] [id number] [place] [address]- 6774 May, [facility] [address] [facility] [id number], [place] [id number] Apr, [facility] [place] [facility] [address] [facility] [id number] [place] [address]- 9537 Apr, [facility] [address] [id number], [place] [id number] Apr, [facility] [address] [id number], [place] [id number] Apr, [facility] [place] [facility] [address] [facility] [id number] [place] [address]- 3827 Apr, [facility] [place] [facility] [address] [facility] [id number] [place] [address]- 3856 Apr, [facility] [address] [id number], [place] [id number] Mar, [facility] [place] [facility] [address] [id number] [address]- 6701 Mar, [facility] [address] [facility] [id number], [place] [id number] Mar, [facility] [place] [facility] [address] [facility] [id number] [place] [address]- 2636 Mar, [facility] [address] [id number] [place] [id number] Mar, [facility] [place] [facility] [address] [id number] [place] [address]- 2809 Mar, [facility] [address] [id number] [place] [id number] Mar, [facility] [place] [facility] [address] [facility] [id number] [place] [address]- 0608 Mar, [facility] [address] [id number] [place] [id number] Mar, [facility] [place] [facility] [address] [id number] [place] [address]- 5181 Mar, [facility] [address] [id number] [place] [id number] Feb, [facility] [place] [facility] [address] [facility] [id number] [place]- 35[address] Feb, [facility] [address] [facility] [id number] [place] [id number] Jan, [facility] [place] [facility] [address] [facility] [id number] [place] [address]- 5170 Jan, [facility] [address] [facility] [id number] [place] [id number] Jan, [facility] [place] [facility] [address] [facility] [id number] [place] [address]- 7396 Jan, [facility] [address] [facility] [id number] [place] [id number] Jan, [facility] [place] [facility] [address] [facility] [id number] [place] [address]- 6223 Jan, [facility] [place] [facility] [address] [facility] [id number] [place] [address]- 0350 Dec, [facility] [place] [facility] [address] [facility] [id number] [place] 49[place]- 0980 Dec, [facility] [address] [id number] [place] [id number] November, [facility] [place] [facility] [address] [facility] [id number] [place] [address]- 9744 November, [facility] [address] [facility] [id number] [place] [id number] November, [facility] [place] [facility] [address] [facility] [id number] [place] [address]- 4728 November, [facility] [address] [facility] [id number] [place] [id number] Oct, [facility] [place] [facility] [address] [facility] [id number] [place] [address]- 5405 Oct, [facility] [place] [facility] [address] [facility] [id number] [place]- 1714 Oct, [facility] [place] [facility] [address] [facility] [id number] [place] [address]- 8167 Oct, [facility] [place] [facility] [address] [id number] [place] [address]- 6950 Oct, [facility] [place] [facility] [address] [facility] [id number] [place] [address]- 8309 Oct, [facility] [address] [facility] [id number] [place] [id number] Sep, [facility] [address] [facility] [id number], [place] 627261450 Sep, [facility] [place] [facility] [address] [facility] [id number] [place] [address]- 2588 Sep, [facility] [place] [facility] [address] [facility] [id number] [place] [address]- 2478 Sep, [facility] [address] [facility] [id number] [place] [id number] Sep, [facility] [place] [facility] [address] [facility] [id number] [place] 7005 Sep, [facility] [place] [facility] [address] [facility] [id number] [place] [address]- 5476 Aug, [facility] [place] [facility] [address] [facility] [id number] [place] [address]- 7716 Aug, [facility] [address] [id number] [place] 058200513 Aug, [facility] [address] [facility] [id number] [place] [id number] Aug, [facility] [place] [facility] [address] [facility] [id number] [place] [address]- 7976 Aug, [facility] [address] [facility] [id number] [place] [id number] Aug, [facility] [place] [facility] [address] [facility] [id number] [place] [address]- 8737 Aug, [facility] [address] [facility] [id number] [place] [id number] Aug, [facility] [place] [facility] [address]00565100[place] [address]- 2688 Aug, [facility] [address] [facility] [id number] [place] [id number] Aug, [facility] [place] [facility] [address] [id number] [address]- 6021 Aug, [facility] [address] [facility] [id number] [place] [id number] Aug, [facility] [place] [facility] [id number] [address]- 0139 Aug, [facility] [place] [facility] [id number] [address]- 7252 Jul, [facility] [address] [facility] [id number], [place] [id number] Jun, [facility] [place] [facility] [address] [facility] [id number] [place] [address]- 6186 Jun, [facility] [place] [facility] [address] [id number]- 3044 Jun, [facility] [place] [facility] [address] [id number] [address]- 1596 Jun, [facility] [address] [facility] [id number], [place] [id number] Jun, [facility] [place] [facility] [address] [facility] [id number] [place] [address] 2546 Jun, [facility] [place] [facility] [address] [facility] [id number] [place] [address]- 2546 Jun, [facility] [address] [facility] [id number], [place] [id number] Jun, [facility] [place] [facility] [address] [facility] [id number] [place] [address]- 2546 Jun, [facility] [place] [facility] [id number] [address]- 5318 May, [facility] [address] [id number], [place] [id number] May, [facility] [place] [facility] [address]00565100[place] [address]- 7505 May, [facility] [place] [facility] [address] [id number] [address]- 5427 May, [facility] [place] [facility] [id number] [address]- 0143 May, [facility] [place] [facility] [address]00565[address] [address]- 5303 May, [facility] [address] [facility] [id number], [place] [id number] May, [facility] [place] [facility] [address] [facility] [id number] [place] [address]- 2546 May, [facility] [address] [facility] [id number], [place] [id number] May, [facility] [place] [facility] [address] [id number] [address]- 9106 May, [facility] [address] [facility] [id number], [place] [id number] Apr, [facility] [place] [facility] [address] [facility] [id number] [place] [address]- 6550 Apr, [facility] [address] [id number] [place] [address]- 5709 Apr, [facility] [address] [facility] [id number], [place] [id number] Apr, [facility] [place] [facility] [address] [facility] [id number] [place] [address]- 2832 Apr, [facility] [place] [facility] [address] [id number] [place] [address]- 3459 Apr, [facility] [address] [facility] [id number], [place] 988260264 Apr, [facility] [place] [facility] [address] [id number] [place]- 3437 Apr, [facility] [place] [facility] [address] [id number] [address]- 3181 Apr, [facility] [place] [facility] [address] [facility] [id number] [place] [address]- 7968 Apr, [facility] [address] [facility] [id number], [place] 124618846 Apr, [facility] [place] [facility] [address] [facility] [id number] [place] [address]- 4465 Apr, [facility] [address] [facility] [id number], [place] [id number] Apr, [facility] [place] [facility] [address] [facility] [id number] [place] [address]- 0955 Apr, [facility] [address] [facility] [id number], [place] 648490228 Apr, [facility] [place] [facility] [address] [facility] [id number] [place] [address]- 7968 Apr, [facility] [place] [facility] [address] [facility] [id number] [place] [address]- 4744 Apr, [facility] [place] [facility] [address] [facility] [id number] [place] [address]- 8862 Apr, [facility] [address] [id number] [place] 169089176 Apr, [facility] [address] [facility] [id number] [place] [address]- 9503 Mar, [facility] [address] [facility] [id number] [place] [address]- 8074 Mar, [facility] [address] [id number] [place] 327916187 Mar, [facility] [address] [id number] [place] 331779231 Mar, [facility] [address] [id number] [place] 213069258 Mar, [facility] [address] [id number] [place] 518333333 Feb, [facility] [address] [id number] [place] [id number] Feb, [facility] [address] [id number] [place] 308027950 Feb, [facility] [address] [facility] [id number] [place] [address]- 5511 Feb, [facility] [address] [id number] [place] 085109879 Feb, [facility] [address] [id number] [place] [id number] Feb, [facility] [address] [id number] [place] 482530238 Feb, [facility] [address] [id number] [place] [id number] Feb, [facility] [address] [id number] [place] 833877716 Feb, [facility] [address] [id number] [place] 100474716 Jan, [facility] [address] [id number] [place] 811689442 Jan, [facility] [address] [id number] [place] [id number] Jan, [facility] [address] [id number] [place] 073592561 Jan, [facility] [address] [id number] [place] 310128730 Jan, [facility] [place] [address] [id number] [place] [address]- 4366 Jan, [facility] [address] [id number] [place] 926611467 Jan, [facility] [address] [id number] [place] 792152706 Jan, [facility] [address] [id number] [place] 035080290 Dec, [facility] [address] [id number] [place] [id number] November, [facility] [address] [id number] [place] 045056424 November, [facility] [address] [id number] [place] 764958918 November, [facility] [address] [id number] [place] [id number] November, [facility] [address] [id number] [place] 060409376 November, [facility] [address] [id number] [place] [id number] November, [facility] [address] [id number] [place] 564781013 Jul, [facility] [address] [id number] [place] 924412507 Jul, [facility] [address] [id number] [place] [id number] Jul, [facility] [address] [id number] [place] 473115638 Jun, [facility] [place] [address] [id number] [place] [address]- 9306 Jun, [facility] [address] [id number], [place] 399857029 May, [facility] [place] [facility] [address] [facility] [id number] [place] [address]- 9799 May, [facility] [address] [facility] [id number][place] [id number] May, [facility] [place] [facility] [address] [facility] [id number] [place] [address] May, [facility] [place] [address] [facility] [id number][place] [id number] May, [facility] [place] [facility] [address] [facility] [id number] [place] [address] May, [facility] [place] [address] [facility] [id number][place] [id number] Apr, [facility] [place] [facility] [id number] [address] Apr, [facility] [place] [facility] [id number] [place] [address] Apr, [facility] [place] [address] [facility] [id number][place] [id number] Apr, [facility] [place] [address] [facility] [id number][place] [id number] Apr, [facility] [place] [facility] [id number] [address] Apr, [facility] [place] [facility] [address] [facility] [id number] [place] [address] Apr, [facility] [place] [address] [id number][place] [id number] Apr, [facility] [place] [facility] [address] [facility] [id number] [place] [address] Apr, [facility] [place] [address] [id number][place] [id number] Apr, [facility] [address] [id number][place] [id number] Apr, [facility] [address] [id number][place] [id number] Mar, [facility] [place] [address] [id number] [place] [id number] Feb, [facility] [place] [address] [id number] [place] [id number] Jan, [facility] [place] [address] [id number] [place] [id number] Dec, [facility] [place] [address] [id number] [place] [id number] Dec, [facility] [place] [address] [id number] [place] [id number] Dec, [facility] [place] [address] [id number] [place] [id number] Dec, [facility] [place] [address] [id number] [place] [address] Dec, [facility] [place] [address] [id number] [place] [id number] November, [facility] [place] [address] [id number] [place] [id number] November, [facility] [place] [address] [id number] [place] [id number] November, [facility] [place] [id number] [address] November, [facility] [place] [address] [id number] [place] [id number] November, [facility] [place] [address] [id number] [place] [id number] November, [facility] [place] [address] [id number] [place] [id number] Oct, [facility] [place] [address] [id number] [place] [id number] Oct, [facility] [place] [address] [id number] [place] [id number] Oct, [facility] [place] [address] [id number] [place] [id number] Oct, [facility] [place] [address] [id number] [place] [id number] Oct, [facility] [place] [address] [id number] [place] [id number] Oct, [facility] [place] [address] [id number] [place] [id number] Sep, [facility] [place] [address] [id number] [place] [id number] Aug, [facility] [place] [address] [id number] [place] [id number] Aug, [facility] [place] [address] [id number] [place] [id number] Jul, [facility] [place] [facility] [address] [id number] [place] [address] Jun, [facility] [place] [facility] [id number] [place] [address], [place] [address] Jun, [facility] [place] [facility] [id number] [place] [address] 415638- [address] Jun, [facility] [place] [facility] [id number] [place] [address]- [address] Jun, [facility] [place] [facility] [id number] [address] May, [facility] [place] [facility] [id number] [place] [address] May, [facility] [place] [facility] [id number] [address] Apr, [facility] [place] [facility] [id number] [address] Apr, [facility] [place] [facility] [address] [facility] [id number] [place] [address] Apr, [facility] [place] [facility] [id number] [place] [address]- [address] Feb, [facility] [place] [facility] [address] [facility] [id number] [place] [address] 15 Aug, 2010 [facility] [place] [facility] [id number] [place] [address]- [address] Jul, [facility] [place] [facility] [address] [id number] [place] [address] 30 Jun, 2010 [facility] [place] [facility] [address] [id number] [place] [address] May, [facility] [place] [facility] [address] [id number] [place] [address] May, [facility] [place] [facility] [address] [id number] [place] [address] 2545 May, [facility] [place] [facility] [address] [id number] [place] [address] May, [facility] [place] [facility] [address] [id number] [place] [address] May, [facility] [place] [facility] [address] [id number] [place] [address] Aug, [facility] [place] [facility] [address] [id number] [place] [address] Jun, [facility] [place] [facility] [address] [id number] [place] [address] Jun, [facility] [place] [facility] [address] [id number] [place] [address] Jun, [facility] [place] [facility] [address] [id number] [place] [address] 24 May, 2009 [facility] [place] [facility] [address] [id number] [place] [address] 28 Apr, 2009 [facility] [place] [facility] [address] [id number] [place] [address] 27 Apr, 2009 [facility] [place] [facility] [address] [id number] [place] [address] 15 Apr, 2009 [facility] [place] [facility] [address] [id number] [place] [address] Jan, [facility] [place] [facility] [address] [facility] [id number] [place] [address] Oct, [facility] [address] [facility] [id number] [place] [address] May, [facility] [address] [facility] [id number] [place] [address] May, IMMUNIZATIONS No Known Immunizations SOCIAL HISTORY [...] Ruthy Reveles 2012 -Dr. Simon now [facility] Medical History Colonoscopy (polyps 2 ) [...]
[2017-12-22] MEDS ORDERED: VANCOMYCIN INJECTION 1,000 MG in NS (IVPB) 250 ML IV ONE (19:30)
[2017-12-22] MEDS ORDERED: CEFEPIME INJECTION 2,000 MG in NS (IVPB) 50 ML IV ONE (19:30)
--- OUTSIDE RECORDS SUMMARY | 2017-12-22 19:31 | XMS REPORT ---
Author Author CHELSY VILLAFANA Organization [facility], [place] Address [address] [place] [address] Care Team Providers Care Manager Materials Management Name Role Phone CHELSY VILLAFANA Unavailable PROBLEMS Type Condition ICD9-CM Code XLF88-IW Code Onset Dates Condition Status SNOMED Code Problem Chronic pain syndrome G89.4 Active 463609008 Problem Type 2 diabetes mellitus with hyperglycemia E11.65 Active 119745078473335 Problem Primary insomnia F51.01 Active 1287268 Problem Bilateral lower extremity edema R60.0 Active 843972275 Problem Anemia in other chronic diseases classified elsewhere D63.8 Active 524764047 Problem Supplemental oxygen dependent Z99.81 Active 061020386465 Problem Right carpal tunnel syndrome G56.01 Active 384251652556134 Problem 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 Active 293966007522097 Problem Paresthesia of right upper extremity R20.2 Active 68252337 Problem Chronic kidney disease, stage 4 (severe) N18.4 Active 164046485 Problem manager intermediate 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 Active 759368373 Problem Psoriasis of scalp L40.9 Active 349138489 Problem Gastroesophageal reflux disease without esophagitis K21.9 Active 208714834 Problem Chronic obstructive pulmonary disease, unspecified COPD type J44.9 Active 47826193 Problem Type 2 diabetes mellitus with other diabetic kidney complication E11.29 Active 123928864 Problem Diabetic 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 Active 04724580 Problem History of DVT (deep vein thrombosis) Z86.718 Active 809665734 Problem FDC current use of anticoagulant Z79.01 Active 679417971 Problem Oxygen desaturation during sleep G47.34 Active 327159163 Problem Essential hypertension I10 Active 69838608 Problem Depression, unspecified depression type F32.9 Active 49930029 Problem Sleep apnea in adult G47.33 Active 00167208 ALLERGIES No Information ENCOUNTERS Encounter Location Date Diagnosis [facility] [place] [address] [address] November, [facility] [place] [id number] [place] [address] 55664- 8328 Oct, Type 2 diabetes mellitus with other diabetic kidney complication E11.29 [place] [id number] [place] [address] 64983- 1496 Oct, Primary insomnia F51.01 [place] [id number] [id number] Oct, Bilateral lower extremity edema R60.0 [place] [id number] [place] [address] 60004- 7359 Oct, [place] [id number] [place] [address] 60581- 4466 Sep, Type 2 diabetes mellitus with other diabetic kidney complication E11.29 and Chronic obstructive pulmonary disease, unspecified COPD type J44.9 [place] [id number] [place] [address] 25803- 5865 Aug, Type 2 diabetes mellitus with other diabetic kidney complication E11.29 [place] [id number] [place] [address] 83461- 3868 Aug, Gastroesophageal reflux disease without esophagitis K21.9 ; FDC current use of anticoagulant Z79.01 ; Chronic pain syndrome G89.4 ; Essential hypertension I10 and Type 2 diabetes mellitus with other diabetic kidney complication E11.29 [place] [address], [place] [address] 08 Aug, 2017 Chronic pain syndrome G89.4 [place] [id number] [place] [address] 89443- 9372 Aug, Type 2 diabetes mellitus with other diabetic kidney complication E11.29 [place] [id number] [place] [address] 49009- 9824 Jul, Diabetic 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 [place] [address] [address] 6034 Jul, Primary insomnia F51.01 [place] [id number] [place] [address] 61911- 7083 Jul, [facility] [place] [id number] [place] [address] 70661- 1248 Jul, Type 2 diabetes mellitus with other diabetic kidney complication E11.29 and Chronic obstructive pulmonary disease, unspecified COPD type J44.9 [facility] [place] [id number] [place] [address] 77773- 1682 Jul, Type 2 diabetes mellitus with other diabetic kidney complication E11.29 [place] [id number] [place] [address] 48869- 1568 Jun, Type 2 diabetes mellitus with other diabetic kidney complication E11.29 [place] [id number] [place] [address] 42161- 7375 Jun, [place] [id number] [place] [address] 62868- 3921 Jun, Chronic obstructive pulmonary disease, unspecified COPD type J44.9 [place] [id number] [place] [address] 42808- 0869 May, Type 2 diabetes mellitus with other diabetic kidney complication E11.29 [place] [id number] [place] [address] 21299- 5881 May, FDC current use of anticoagulant Z79.01 and Essential hypertension I10 [place] [id number] [place] [address] 79234- 9591 May, Anemia in other chronic diseases classified elsewhere D63.8 ; Chronic obstructive pulmonary disease, unspecified COPD type J44.9 ; Oxygen desaturation during sleep G47.34 ; Sleep apnea in adult G47.33 and Supplemental oxygen dependent Z99.81 [place] [address], [place] [address] 1070 May, Type 2 diabetes mellitus with other diabetic kidney complication E11.29 ; Essential hypertension I10 ; Chronic pain syndrome G89.4 ; BMI 40.0-44.9, adult Z68.41 ; Gastroesophageal reflux disease without esophagitis K21.9 ; manager intermediate current use of anticoagulant Z79.01 ; manager intermediate 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 ; Diabetic 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 ; Edema of both legs R60.0 and Supplemental oxygen dependent Z99.81 [place] [id number] [place] [address] 33462- 6567 May, [place] [address] [place] [address] 75324- 4756 May, Essential hypertension I10 and Gastroesophageal reflux disease without esophagitis K21.9 [place] [address] [place] [address] 85276- 4009 May, [place] [address] 50545- 5220 May, Type 2 diabetes mellitus with other diabetic kidney complication E11.29 and FDC current use of anticoagulant Z79.01 [place] [address] [place] [address] 50213- 6463 Apr, Chronic pain syndrome G89.4 and Essential hypertension I10 [place] [address] [place] [address] 59906- 9923 Apr, Type 2 diabetes mellitus with other diabetic kidney complication E11.29 [place] [address] [place] [address] 58270- 9250 Apr, Type 2 diabetes mellitus with other diabetic kidney complication E11.29 [place] [id number] [place] [address] 28664- 8737 Apr, Essential hypertension I10 [place] [address] [place] [address] 45180- 3341 Apr, Gastroesophageal reflux disease without esophagitis K21.9 [place] [address] [place] [address] 77956- 2993 Apr, Type 2 diabetes mellitus with other diabetic kidney complication E11.29 [facility] [place] [id number] [place] [address] 37860- 0672 Apr, Type 2 diabetes mellitus with other diabetic kidney complication E11.29 and manager intermediate current use of anticoagulant Z79.01 [facility] [place] [id number] [place] [address] 22821- 8720 Mar, Encounter for immunization Z23 and Preoperative examination Z01.818 [facility] [place] [address] 61854- 2423 Mar, [place] [address] 43893- 6011 Mar, Type 2 diabetes mellitus with other diabetic kidney complication E11.29 [place] [address] 17850- 0949 Mar, Type 2 diabetes mellitus with other diabetic kidney complication E11.29 [place] [id number] [place] [address] 15833- 5309 Mar, Gastroesophageal reflux disease without esophagitis K21.9 [facility] [place] [address] 26831- 9135 Mar, Essential hypertension I10 [place] [id number] [place] [address] 86940- 6159 Feb, manager intermediate current use of anticoagulant Z79.01 [facility] [place] [id number] [place] [address] 76272- 1025 Feb, Type 2 diabetes mellitus with other diabetic kidney complication E11.29 [facility] [place] [id number] [place] [address] 46952- 4229 Feb, Type 2 diabetes mellitus with other diabetic kidney complication E11.29 [facility] [place] [id number] [place] [address] 42443- 8025 Feb, Type 2 diabetes mellitus with other diabetic kidney complication E11.29 [facility] [place] [id number] [place] [address] 64093- 4867 Feb, Gastroesophageal reflux disease without esophagitis K21.9 [facility] [place] [id number] [place] [address] 47298- 5561 Feb, Type 2 diabetes mellitus with other diabetic kidney complication E11.29 [facility] [place] [address] [place] [address] 07626- 3207 Feb, manager intermediate current use of anticoagulant Z79.01 [facility] [place] [id number] [place] [address] 10057- 2164 Jan, Type 2 diabetes mellitus with other diabetic kidney complication E11.29 [facility] [place] [id number] [place] [address] 11510- 3407 Jan, Type 2 diabetes mellitus with other diabetic kidney complication E11.29 [facility] [place] [id number] [place] [address] 95982- 9964 Jan, Chronic pain syndrome G89.4 [facility] [place] [id number] [place] [address] 88123- 7051 Jan, [facility] [place] [id number] [place] [address] 21507- 5590 Jan, [facility] [place] [id number] [place] [address] 17593- 8628 Jan, [facility] [place] [id number] [place] [address] 50925- 4741 Jan, [facility] [place] [id number] [place] [address] 91666- 3957 Jan, Primary insomnia F51.01 ; Type 2 diabetes mellitus with other diabetic kidney complication E11.29 ; Chronic pain syndrome G89.4 and Essential hypertension I10 [facility] [place] [address] [place] [address] 49166- 2083 Jan, Primary insomnia F51.01 [facility] [place] [address] [place] [address] 86292- 4029 Jan, Type 2 diabetes mellitus with other diabetic kidney complication E11.29 [facility] [place] [address], [place] [address]- 0536 Jan, [facility] [place] [id number] [place] [address] 87004- 6015 Jan, Chronic obstructive pulmonary disease, unspecified COPD type J44.9 [facility] [place] [address] [place] [address] 00435- 1180 Jan, Essential hypertension I10 ; Type 2 diabetes mellitus with other diabetic kidney complication E11.29 ; Chronic obstructive pulmonary disease, unspecified COPD type J44.9 ; Chronic kidney disease, stage 4 (severe) N18.4 ; Right carpal tunnel syndrome G56.01 ; 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 ; FDC (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 and Diabetic 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 [place] [id number] [place] [address] 84568- 8877 Jan, Gastroesophageal reflux disease without esophagitis K21.9 [facility] [place] [id number] [place] [address] 81766- 8366 Dec, [place] [id number] [place] [address] 83420- 9978 Dec, [facility] [place] [address] [place] [address] 67998- 8670 Dec, manager intermediate current use of anticoagulant Z79.01 ; Chronic pain syndrome G89.4 and Essential hypertension I10 [facility] [place] [address] [place] [address] 14074- 3718 Dec, [facility] [place] [id number] [place] [address] 68541- 0778 Dec, Type 2 diabetes mellitus with other diabetic kidney complication E11.29 [facility] [place] [id number] [place] [address] 71725- 2732 Dec, [facility] [place] [id number] [place] [address] 66189- 4599 Dec, Gastroesophageal reflux disease without esophagitis K21.9 [facility] [place] [address] [place] [address] 80891- 6075 November, Type 2 diabetes mellitus with other diabetic kidney complication E11.29 [facility] [place] [id number] [place] [address] 67321- 8503 November, [facility] [place] [id number] [place] [address] 64469- 7735 November, Type 2 diabetes mellitus with other diabetic kidney complication E11.29 [facility] [place] [id number] [place] [address] 19883- 9222 November, [facility] [place] [id number] [place] [address] 68854- 5333 November, Type 2 diabetes mellitus with other diabetic kidney complication E11.29 [facility] [place] [id number] [place] [address] 57698- 0909 November, [facility] [place] [id number] [place] [address] 44528- 5535 Oct, Essential hypertension I10 [facility] [place] [id number] [place] [address] 91888- 7285 Oct, Psoriasis of scalp L40.9 [facility] [place] [address] [place] [address] 91521- 4613 Oct, Essential hypertension I10 and Chronic pain syndrome G89.4 [facility], [place] [address] [place] [address] 36705- 1541 Oct, [facility] [place] [address] [place] [address] 65916- 5522 Sep, Type 2 diabetes mellitus with other diabetic kidney complication E11.29 [facility] [place] [id number] [place] [address] 19233- 0364 Sep, [facility] [place] [id number] [place] [address] 31479- 7352 Sep, Type 2 diabetes mellitus with other diabetic kidney complication E11.29 [place] [address] [place] [address] 54530- 4459 Sep, Type 2 diabetes mellitus with other diabetic kidney complication E11.29 [place] [address] [place] [address] 68619- 0500 09 Sep, 2016 Type 2 diabetes mellitus with other diabetic kidney complication E11.29 ; Chronic kidney disease, stage 4 (severe) N18.4 ; Chronic obstructive pulmonary disease, unspecified COPD type J44.9 ; Iron deficiency anemia due to chronic blood loss D50.0 ; manager intermediate current use of anticoagulant Z79.01 ; Gastroesophageal reflux disease without esophagitis K21.9 ; Essential hypertension I10 ; Primary insomnia F51.01 ; Depression, unspecified depression type F32.9 ; Chronic pain syndrome G89.4 ; Wrist pain, right M25.531 ; Paresthesia of right upper extremity R20.2 and Psoriasis of scalp L40.9 [place] [address] [place] [address] 01068- 3803 Sep, [place] [address] [place] [address] 26779- 3610 Aug, Essential hypertension I10 [place] [address] [place] [address] 81970- 4330 Aug, History of DVT (deep vein thrombosis) Z86.718 [place] [address] [place] [address] 90313- 3501 Aug, [place] [address] [place] [address] 40636- 2370 Jul, [place] [address] [place] [address] 79122- 1444 Jul, [place] [address] [place] [address] 85381- 8699 Jul, manager intermediate current use of anticoagulant Z79.01 ; Chronic pain syndrome G89.4 and Chronic kidney disease, stage 4 (severe) N18.4 [place] [address], [place] [address]- 7903 Jul, [place] [address], [place] [address]- 5150 Jul, [place] [address], [place] [address]- 8905 Jul, [place] [address] [place] [address] 55504- 1315 Jul, [place] [address], [place] [address]- 2156 Jul, [place] [address] [place] [address] 81343- 0216 Jul, Type 2 diabetes mellitus with other diabetic kidney complication E11.29 [place] [address], [place] [address]- 2273 Jul, History of DVT (deep vein thrombosis) Z86.718 [place] [address], [place] [address]- 5379 Jun, [place] [address] [place] [address] 81096- 0241 Jun, History of DVT (deep vein thrombosis) Z86.718 [place] [address], [place] [address]- 5632 15 Jun, 2016 Post traumatic stress disorder (PTSD) F43.10 [place] [address], [place] [address]- 9413 07 Jun, 2016 Type 2 diabetes mellitus with other diabetic kidney complication E11.29 ; Diabetic 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 ; Iron deficiency anemia due to chronic blood loss D50.0 ; Chronic obstructive pulmonary disease, unspecified COPD type J44.9 ; manager intermediate current use of anticoagulant Z79.01 ; History [...] pain M79.641 and Right wrist pain M25.531 [facility] [place] [address] 59882- 8588 28 May, 2016 [facility] [place] [address] 35346- 0806 23 May, 2016 [place] [id number] [place] [address] 16092- 1166 21 May, 2016 [place] [address] 68254- 9004 15 May, 2016 [place] [address] 66141- 5548 11 May, 2016 Anemia in other chronic diseases classified elsewhere D63.8 [place] [address] 34294- 4019 02 May, 2016 [facility] [place] [id number] [place] [address] 90207- 9465 10 Apr, 2016 [facility] [place] [address] [place] [address] 16062- 5298 27 Mar, 2016 Dermatofibroma D23.9 [facility] [place] [address] [place] [address] 55544- 3399 20 Mar, 2016 [facility] [place] [address] 62359- 1703 14 Mar, 2016 Chronic pain syndrome G89.4 [facility] [place] [address] [place] [address] 42619- 7646 09 Mar, 2016 [facility] [place] [address] 73114- 9407 Mar, [facility] [place] [address], [place] [address]- 6639 Mar, [facility] [place] [address] [place] [address] 68607- 3443 Feb, [facility] [place] [address] [address]- 9529 Feb, [facility] [place] [address] [place] [address] 42951- 6519 Feb, [facility] [place] [address] [place] [address] 48673- 7376 Feb, [facility] [place] [address] [place] [address] 82985- 2339 Feb, [facility] [place] [address] [place] [address] 28084- 1008 Feb, [facility] [place] [address] [place] [address] 84755- 5113 Feb, Type 2 diabetes mellitus with other diabetic kidney complication E11.29 ; Diabetic 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 ; Iron deficiency anemia due to chronic blood loss D50.0 ; Chronic obstructive pulmonary disease, unspecified COPD type J44.9 ; FDC current use of anticoagulant Z79.01 ; History of DVT (deep vein thrombosis) Z86.718 ; Chronic pain syndrome G89.4 ; Oxygen desaturation during sleep G47.34 ; Sleep apnea in adult G47.33 ; Gastroesophageal reflux disease without esophagitis K21.9 ; Essential hypertension I10 ; Primary insomnia F51.01 ; Depression, unspecified depression type F32.9 and Renal failure, chronic, stage 4 (severe) N18.4 [facility] [place] [address] [place] [address] 95849- 2720 Feb, Skin tags, multiple acquired L91.8 [facility] [place] [address], [place] [address]- 9070 Jan, [place] [address] [facility] [id number] [id number] Jan, Dental examination Z01.20 [place] [address], [place] [address]- 3411 Jan, [place] [address] [id number] [address]- 6780 Jan, Type 2 diabetes mellitus with other diabetic kidney complication E11.29 ; Diabetic 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 ; Iron deficiency anemia due to chronic blood loss D50.0 ; Chronic obstructive pulmonary disease, unspecified COPD type J44.9 ; FDC current use of anticoagulant Z79.01 ; History of DVT (deep vein thrombosis) Z86.718 ; Chronic pain syndrome G89.4 ; Oxygen desaturation during sleep G47.34 ; Sleep apnea in adult G47.33 ; Gastroesophageal reflux disease without esophagitis K21.9 ; Essential hypertension I10 ; Primary insomnia F51.01 ; Depression, unspecified depression type F32.9 ; Skin lesion L98.9 and Renal failure, chronic, stage 4 (severe) N18.4 [place] [address], [place] [address]- 7573 Dec, Diabetes type 2, uncontrolled E11.65 [place] [address], [place] [address]- 5198 Dec, [address], [place] [address]- 4493 Dec, Type 2 diabetes mellitus with other diabetic kidney complication E11.29 ; Diabetic 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 ; Iron deficiency anemia due to chronic blood loss D50.0 ; Chronic obstructive pulmonary disease, unspecified COPD type J44.9 ; manager intermediate current use of anticoagulant Z79.01 ; History of DVT (deep vein thrombosis) Z86.718 ; Chronic pain syndrome G89.4 ; Oxygen desaturation during sleep G47.34 ; Sleep apnea in adult G47.33 ; Gastroesophageal reflux disease without esophagitis K21.9 ; Essential hypertension I10 ; Primary insomnia F51.01 and Depression, unspecified depression type F32.9 [facility] [address] [id number] [id number] Dec, Dental caries K02.9 [facility] [id number] [place] [address] [id number] Dec, [facility] [address] [id number] [id number] Dec, Dental examination Z01.20 [facility] [address] [id number] [place] [address] [id number] November, Dental examination Z01.20 and Dental caries K02.9 [facility] [address] [id number] [place] [address] [id number] Oct, [facility] [address] [id number] [place] [address] [id number] Oct, [facility] [address] [id number] [place] [address] [id number] Sep, [facility] [address] [id number] [place] [address] [id number] Sep, [facility] [address] [id number] [place] [address] [id number] Sep, [facility] [address] [id number] [place] [address] [id number] Sep, Other chronic pain 338.29 [facility] [address] [id number] [place] [address] [id number] Aug, Diabetes type 2, uncontrolled E11.65 and Morbid obesity due to excess calories E66.01 [facility] [address] [id number] [place] [address] [id number] Aug, Hair loss L65.9 [facility] [address] [id number] [place] [address] [id number] Aug, [facility] [address] [id number] [place] [address] [id number] Jul, [facility] [address] [id number] [place] [address] [id number] Jul, [facility] [address] [id number] [place] [address] [id number] Jun, [place] [id number] [place] [address] [id number] Jun, Hair loss L65.9 and Disorder of the skin and subcutaneous tissue, unspecified L98.9 [place] [id number] [place] [address] [id number] May, Type 2 diabetes mellitus with other diabetic kidney complication E11.29 ; Type 2 diabetes mellitus with hyperglycemia E11.65 ; Morbid obesity due to excess calories E66.01 and Essential hypertension I10 [place] [id number] [place] [address] [id number] May, Diabetes type 2, uncontrolled E11.65 ; Encounter for immunization Z23 and Morbid obesity due to excess calories E66.01 [place] [id number] [place] [address] [id number] May, [facility] [place] [address] [address] Apr, [place] [id number] [place] [address] [id number] Apr, Hyperglycemia R73.9 [place] [id number] [place] [address] [id number] Apr, [place] [id number] [place] [address] [id number] Apr, Depression F32.9 ; Encounter for immunization Z23 ; Hyperglycemia R73.9 and Anemia in other chronic diseases classified elsewhere D63.8 [facility] [address]00565100[place] [id number] Mar, [id number] [place] [address] [id number] Feb, Positive occult stool blood test 792.[address] [id number] Feb, Depression 311 ; Other chronic pain 338.29 and Diabetes with renal manifestations, type II or unspecified type, not stated as uncontrolled 250.40 [facility] [place] [id number] [place] [address]- 9971 Feb, Occult blood in stools 792.1 [facility] [id number], [place] [id number] Feb, Anemia 285.9 ; Occult blood positive stool 792.1 ; Unspecified essential hypertension 401.9 and Other chronic pain 338.29 [facility] [id number] [place] [address] [id number] Feb, [facility] [id number] [place] [address] [id number] Feb, Anemia 285.9 [facility] [id number] [place] [address] [id number] Feb, [facility] [id number] [place] [address] [id number] Feb, [facility] [id number] [place] [address] [id number] Feb, Diabetes with renal manifestations, type II or unspecified type, not stated as uncontrolled 250.40 ; Other chronic pain 338.29 ; Unspecified essential hypertension 401.9 ; Anemia 285.9 and Depression 311 [facility] [id number] [place] [address] [id number] Jan, [facility] [id number] [place] [address] [id number] Jan, Anemia 285.9 and Follow up V67.9 [facility] [id number] [place] [address] [id number] Jan, [facility] [id number] [place] [address] [id number] Jan, [facility] [id number] [place] [address] [id number] Jan, [facility] [id number] [place] [address] [id number] Dec, [facility] [place] [id number] [place] [address] [id number] 0290 Oct, [facility] [place] [id number] [place] [address] 29390- 8416 Oct, [facility] [place] [id number] [place] [address] 03512- 5226 Sep, [facility] [place] [address] [facility] [id number] [place] [id number] Sep, [facility] [place] [facility] [address] [facility] [id number], [place] [address]- 2876 Sep, [facility] [place] [address] [facility] [id number], [place] [id number] Aug, [facility] [place] [facility] [address] [facility] [id number], [place] [address]- 7996 Aug, [facility] [place] [facility] [address] [facility] [id number], [place] [address]- 0839 Aug, [facility] [place] [address] [facility] [id number], [place] [id number] Aug, [facility] [place] [facility] [address]00565100[place], [place] [address]- 0752 Aug, [facility] [place] [facility] [address] [id number], [place] [address]- 8076 Aug, [facility] [place] [address] [facility] [id number], [place] [id number] Aug, [facility] [place] [facility] [address] [id number], [place] [address]- 0016 Aug, [facility] [place] [address] [facility] [id number], [place] [id number] Jul, [facility] [place] [facility] [address]00565100[place], [place] [address]- 9536 Jul, [facility] [place] [facility] [address] [facility] [id number], [place] [address]- 3192 Jul, [facility] [place] [address] [facility] [id number], [place] [id number] Jul, [facility] [place] [facility] [address] [facility] [id number], [place] [address]- 5536 Jul, [facility] [place] [address] [facility] [id number], [place] [id number] Jul, [facility] [place] [facility] [address] [facility] [id number], [place] [address]- 2546 Jul, [facility] [place] [address] [id number] [place] [id number] Jun, [facility] [place] [address] [facility] [id number], [place] [id number] Jun, [facility] [place] [facility] [address] [facility] [id number], [place] [address]- 0616 Jun, [facility] [place] [facility] [address] [facility] [id number], [place] [address]- 0604 Jun, [facility] [place] [address] [facility] [id number] [place] [id number] Jun, [facility] [place] [facility] [address] [facility] [id number], [place] [address]- 6266 Jun, [facility] [place] [address] [id number], [place] [id number] May, [facility] [place] [facility] [address] [facility] [id number], [place] [address]- 2949 May, [facility] [place] [facility] [address] [facility] [id number], [place] [address]- 0462 May, [facility] [place] [address] [facility] [id number], [place] [id number] Apr, [facility] [place] [facility] [address] [facility] [id number], [place] [address]- 7726 Apr, [facility] [place] [address] [facility] [id number], [place] [id number] Apr, [facility] [place] [address] [facility] [id number], [place] [id number] Apr, [facility] [place] [facility] [address] [facility] [id number], [place] [address]- 5896 Apr, [facility] [place] [facility] [address] [facility] [id number], [place] [address]- 6226 Apr, [facility] [place] [address] [facility] [id number], [place] [id number] Mar, [facility] [place] [facility] [address] [id number] [place] [address]- 9904 18 Mar, 2014 [facility] [place] [address] [id number] [place] [id number] Mar, [facility] [place] [facility] [address] [facility] [id number] [place] 4858 Mar, [facility] [place] [address] [id number] [place] [id number] Mar, [facility] [place] [facility] [address] [facility] [id number] [place] [address]- 5225 Mar, [facility] [place] [address] [id number] [place] [id number] Mar, [facility] [place] [facility] [address] [facility] [id number] [place] [address]- 7701 Mar, [facility] [place] [address] [facility] [id number] [place] [id number] Mar, [facility] [place] [facility] [address] [facility] [id number], [place] [address]- 3421 Mar, [facility] [place] [address] [facility] [id number] [place] [id number] Feb, [facility] [place] [facility] [address] [facility] [id number], [place] [address]- 1532 Feb, [facility] [place] [address] [id number] [place] [id number] Jan, [facility] [place] [facility] [address] [facility] [id number], [place] [address]- 3596 Jan, [facility] [address] [id number] [place] [id number] Jan, [facility] [place] [facility] [address] [facility] [id number] [place] [address]- 3858 Jan, [facility] [place] [address] [id number], [place] [id number] Jan, [facility] [place] [facility] [address] [facility] [id number], [place] 05666263- 7259 Jan, [facility] [place] [facility] [address] [id number] [place] [address]- 2546 Dec, [facility] [place] [facility] [address] [id number] [place] [address]- 2546 Dec, [facility] [address] [id number] [place] [id number] November, [facility] [place] [facility] [address] [id number] [place] [address]- 2546 November, [facility] [place] [address] [id number] [place] [id number] November, [facility] [place] [facility] [address] [id number] [place] [address]- 2546 November, [facility] [place] [address] [id number] [place] [id number] Oct, [facility] [place] [facility] [address] [id number] [place] [address]- 5436 Oct, [facility] [place] [facility] [address] [id number] [place] [address]- 8866 Oct, [facility] [place] [facility] [address] [id number] [place] [address]- 5996 Oct, [facility] [place] [facility] [address] [id number] [place] [address]- 2546 Oct, [facility] [place] [facility] [address] [id number] [place] [address]- 2546 Oct, [facility] [address] [id number] [place] [id number] Sep, [facility] [place] [address] [id number] [place] [id number] Sep, [facility] [place] [facility] [address] [id number] [place] [address]- 2546 Sep, [facility] [place] [facility] [address] [id number] [place] [address]- 2546 Sep, [facility] [place] [address] [id number], [place] [id number] Sep, [facility] [place] [facility] [address]00565100[place], [place] [address]- 6850 Sep, [facility] [place] [facility] [address] [id number], [place] [address]- 0292 Aug, [facility] [place] [facility] [address]00565100[place], [place] [address]- 2914 Aug, [facility] [place] [address] [facility] [id number], [place] [id number] Aug, [facility] [place] [address] [id number], [place] [id number] Aug, [facility] [place] [facility] [address]00565100[place], [place] [address]- 7007 Aug, [facility] [place] [id number], [place] [id number] Aug, [facility] [place] [facility] [address]00565100[place], [place] [address]- 2711 Aug, [facility] [place] [address] [id number], [place] [id number] Aug, [facility] [place] [facility] [address]00565100[place], [place] [address]- 7702 Aug, [facility] [place] [address] [id number], [place] [id number] Aug, [facility] [place] [facility] [address] [id number], [place] [address]- 3910 Aug, [facility] [place] [address] [facility] [id number], [place] 740335420 Aug, [facility] [place] [facility] [address]00565100[place], [place] [address]- 9313 Aug, [facility] [place] [facility] [address] [id number], [place] [address]- 0837 Jul, [facility] [place] [address] [id number], [place] [id number] Jun, [facility] [place] [facility] [address] [id number] [place] [address]- 6866 Jun, [facility] [place] [facility] [address] [id number] [place] [address]- 8826 Jun, [facility] [place] [facility] [address] [facility] [id number] [place] [address]- 8666 Jun, [facility] [place] [address] [facility] [id number], [place] 746115296 Jun, [facility] [place] [facility] [address] [id number] [place] [address]- 8176 Jun, [facility] [place] [facility] [address] [facility] [id number] [place] [address]- 2546 Jun, [facility] [place] [address] [facility] [id number], [place] [id number] Jun, [facility] [place] [facility] [address] [facility] [id number], [place] [address]- 3746 Jun, [facility] [place] [facility] [address] [facility] [id number] [place] [address]- 9556 May, [facility] [place] [address] [facility] [id number], [place] 212949202 May, [facility] [place] [facility] [address] [facility] [id number], [place] [address]- 1496 May, [facility] [place] [facility] [address] [facility] [id number], [place] [address]- 4966 May, [facility] [place] [facility] [address] [id number], [place] [address]- 6446 May, [facility] [place] [facility] [address] [facility] [id number], [place] [address]- 1376 May, [facility] [place] [address] [facility] [id number], [place] 723924919 May, [facility] [place] [facility] [address] [facility] [id number], [place] [address]- 2246 May, [facility] [place] [address] [facility] [id number], [place] 837065369 May, [facility] [place] [facility] [address] [facility] [id number], [place] [address]- 4066 May, [facility] [place] [address] [facility] [id number], [place] [id number] Apr, [facility] [place] [facility] [address] [facility] [id number], [place] [address]- 9539 Apr, [facility] [place] [facility] [address] [facility] [id number], [place] [address]- 7548 Apr, [facility] [place] [address] [facility] [id number], [place] [id number] Apr, [facility] [place] [facility] [address] [facility] [id number], [place] [address]- 9481 Apr, [facility] [place] [facility] [address] [facility] [id number], [place] [address]- 3720 Apr, [facility] [place] [address] [facility] [id number], [place] [id number] Apr, [facility] [place] [facility] [address] [facility] [id number], [place] 252225- 5628 Apr, [facility] [place] [facility] [address] [facility] [id number], [place] [address]- 3063 Apr, [facility] [place] [facility] [address] [facility] [id number], [place] [address]- 8367 Apr, [facility] [place] [address] [facility] [id number], [place] 980264334 Apr, [facility] [place] [facility] [address] [facility] [id number], [place] [address]- 9516 Apr, [facility] [place] [address] [facility] [id number], [place] 149185095 Apr, [facility] [place] [facility] [address] [facility] [id number], [place] [address]- 9306 Apr, [facility] [place] [address] [facility] [id number], [place] 450262873 Apr, [facility] [address] [facility] [id number] [place] [address]- 0389 Apr, [facility] [place] [facility] [address] [facility] [id number], [place] [address]- 9195 Apr, [facility] [address] [facility] [id number], [place] [address]- 3970 Apr, [facility] [place] [address] [id number], [place] [id number] Apr, [facility] [place] [facility] [address] [facility] [id number] [place] 68[place]21[place]- 4920 Mar, [facility] [address] [facility] [id number], [place] 210148- 9500 Mar, [facility] [place] [address] [id number] [place] 580667205 Mar, [facility] [place] [address] [id number], [place] 387237123 Mar, [facility] [place] [address] [id number], [place] 500498075 Mar, [facility] [place] [address] [id number] [place] 904951092 Feb, [facility] [place] [address] [id number], [place] 006655917 Feb, [facility] [place] [address] [id number], [place] 956964296 Feb, [facility] [place] [facility] [address] [facility] [id number], [place] [address] 2546 Feb, [facility] [place] [address] [id number] [place] 895032189 Feb, [facility] [place] [address] [id number] [place] 119[place]226 Feb, [facility] [place] [address] [id number], [place] 302582658 Feb, [facility] [place] [address] [id number], [place] 827032386 Feb, [facility] [place] [address] [id number] [place] 469082506 Feb, [facility] [place] [address] [id number] [place] 919601754 Jan, [facility] [place] [address] [id number] [place] 273666579 Jan, [facility] [place] [address] [id number] [place] 864220345 Jan, [facility] [place] [address] [id number] [place] 542101420 Jan, [facility] [place] [address] [id number] [place] 306552865 Jan, [facility] [address] [facility] [id number] [place] [address]- 5466 Jan, [facility] [place] [address] [id number] [place] 501643115 Jan, [facility] [place] [address] [id number] [place] 115775479 Jan, [facility] [place] [address] [id number] [place] 380646496 Dec, [facility] [place] [address] [id number] [place] 447341701 November, [facility] [place] [address] [id number] [place] [id number] November, [facility] [place] [address] [id number] [place] 909835902 November, [facility] [place] [address] [id number] [place] 293054841 November, [facility] [place] [address] [id number] [place] 243794811 November, [facility] [place] [address] [id number] [place] 133829352 November, [facility] [place] [address] [id number] [place] 284450065 Jul, [facility] [place] [address] [id number] [place] 159899263 Jul, [facility] [place] [address] [id number], [place] 248769671 Jul, [facility] [place] [address] [id number] [place] 691739408 Jun, [facility] [place] [facility] [address] [facility] [id number], [place] [address]- 8377 Jun, [facility] [place] [address] [facility] [id number] [place] [id number] May, [facility] [place] [facility] [address] [facility] [id number], [place] [address]- 7839 May, [facility] [place] [address] [facility] [id number], [place] 769120907 May, [facility] [place] [facility] [address] [facility] [id number], [place] [address]- 5400 May, [facility] [place] [address] [facility] [id number], [place] 018218491 May, [facility] [place] [facility] [address], [place] [address] May, [facility] [place] [address] [facility] [id number][place] [id number] Apr, [facility] [place] [facility] [id number], [place] [address] Apr, [facility] [place] [facility] [address] [facility] [id number], [place] [address] 18 Apr, 2012 [facility] [place] [address] [id number][place] [id number] Apr, [facility] [place] [address] [facility] [id number], [place] [id number] Apr, [facility] [place] [facility] [address] [facility] [id number][place] Apr, [facility] [place] [facility] [address] [facility] [id number], [place] [address] Apr, [facility] [place] [address] [facility] [id number], [place] [id number] Apr, [facility] [place] [facility] [address] [facility] [id number], [place] [address] Apr, [facility] [place] [address] [id number] [place] [id number] Apr, [facility] [place] [address] [id number] [place] [id number] Apr, [facility] [place] [address] [id number] [place] [id number] Mar, [facility] [place] [address] [id number] [place] [id number] Feb, [facility] [place] [address] [id number] [place] [id number] Jan, [facility] [place] [address] [id number] [place] [id number] Dec, [facility] [place] [address] [id number] [place] [id number] Dec, [facility] [place] [address] [id number] [place] [id number] Dec, [facility] [place] [address] [id number] [place] [id number] Dec, [facility] [place] [address] [id number] [place] [id number] Dec, [facility] [place] [address] [id number] [place] [id number] November, [facility] [place] [address] [id number] [place] [id number] November, [facility] [place] [address] [id number] [place] [id number] November, [facility] [address] [facility] [id number], [place] [address] November, [facility] [place] [address] [id number] [place] [id number] November, [facility] [place] [address] [id number] [place] [id number] November, [facility] [place] [address] [id number] [place] [id number] Oct, [facility] [place] [address] [id number] [place] [id number] Oct, [facility] [place] [address] [id number] [place] [id number] Oct, [facility] [place] [address] [id number] [place] [id number] Oct, [facility] [place] [address] [id number] [place] [id number] Oct, [facility] [place] [address] [id number] [place] [id number] Oct, [facility] [place] [address] [id number] [place] [id number] Sep, [facility] [place] [address] [id number] [place] [id number] Aug, [facility] [place] [address] [id number] [place] [id number] Aug, [facility] [place] [address] [id number] [place] [id number] Jul, [facility] [place] [facility] [address] [id number], [place] [address] Jun, [facility] [place] [facility] [id number] [place] [address] Jun, [facility] [place] [facility] [id number] [place] [id number]- [address] Jun, [facility] [place] [facility] [id number], [place] [address] Jun, [facility] [place] [facility] [address]65[address], [place] [address] May, [facility] [place] [facility] [address] [id number], [place] [address] May, [facility] [place] [facility] [id number] [place] [address]- [address] Apr, [facility] [place] [facility] [id number], [place] [address] Apr, [facility] [place] [facility] [id number] [place] [address] 10 Apr, 2011 [facility] [address] [id number] [place] [address] Feb, [facility] [place] [facility] [address] [id number] [place] [address] 15 Aug, 2010 [facility] [place] [facility] [address] [id number] [place] [address] Jul, [facility] [place] [facility] [address] [id number] [place] [address] 30 Jun, 2010 [facility] [place] [facility] [address] [id number] [place] [address] May, [facility] [place] [facility] [address] [id number] [place] [address]67 May, [facility] [place] [facility] [address] [id number] [place] [address] May, [facility] [place] [facility] [address] [id number] [place] [address] May, [facility] [place] [facility] [address] [id number] [place] [address] May, [facility] [place] [facility] [address] [facility] [id number] [place] [address]- [address] 16 Aug, 2009 [facility] [place] [facility] [address] [id number] [place] [address]- [address] Jun, [facility] [place] [facility] [address] [id number] [place] [address]- [address]48 Jun, [facility] [place] [facility] [address] [id number] [place] [address]- [address] Jun, [facility] [place] [facility] [address] [id number] [place] [address] 24 May, 2009 [facility] [place] [facility] [address] [id number] [place] [address] Apr, [facility], [place] [address] [facility] [id number], [place] [address] Apr, [facility], [place] [address] [id number], [place] [address] Apr, [facility], [place] [address] [id number], [place] [address] Jan, [facility], [place] [id number], [place] [address] Oct, [facility], [place] [address] [id number], [place] [address] May, [facility], [place] [address] [id number], [place] [address] May, IMMUNIZATIONS No Known Immunizations SOCIAL HISTORY [...] Dialysis [facility] 2012 -Dr. Simon now [facility] Medical History Colonoscopy (polyps 2 ) [...]
--- OUTSIDE RECORDS SUMMARY | 2017-12-22 19:32 | XMS REPORT ---
Author Author CHELSY VILLAFANA Organization [facility] Address [address] [place] [address] Care Team Providers [employer] Agent Name Role Phone CHELSY VILLAFANA Unavailable PROBLEMS Type Condition ICD9-CM Code NVP03-VB Code Onset Dates Condition Status SNOMED Code Problem Sleep apnea in adult G47.33 Active 58090888 Problem Primary insomnia F51.01 Active 2043666 Problem Chronic pain syndrome G89.4 Active 168958900 Problem Supplemental oxygen dependent Z99.81 Active 136689347995 Problem Right carpal tunnel syndrome G56.01 Active 205940584338308 Problem 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 Active 723443328 Problem 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 Active 873503999499867 Problem Chronic kidney disease, stage 4 (severe) N18.4 Active 290204960 Problem Type 2 diabetes mellitus with hyperglycemia E11.65 Active 925178975327710 Problem Psoriasis of scalp L40.9 Active 954040620 Problem Paresthesia of right upper extremity R20.2 Active 84266512 Problem Diabetic 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 Active 08538689 Problem Gastroesophageal reflux disease without esophagitis K21.9 Active 530265080 Problem Anemia in other chronic diseases classified elsewhere D63.8 Active 304910614 Problem Type 2 diabetes mellitus with other diabetic kidney complication E11.29 Active 813710822 Problem Depression, unspecified depression type F32.9 Active 32318885 Problem History of DVT (deep vein thrombosis) Z86.718 Active 185763375 Problem Chronic obstructive pulmonary disease, unspecified COPD type J44.9 Active 88635967 Problem 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.01 Active 532273361 Problem Oxygen desaturation during sleep G47.34 Active 331719529 Problem Essential hypertension I10 Active 46829904 ALLERGIES No Information ENCOUNTERS Encounter Location Date Diagnosis [facility] [address] [facility] [id number] [id number] Oct, [place] [address] [address] Oct, [place] [address] [place] [id number] [place] [address] 29046- 1150 Sep, Type 2 diabetes mellitus with other diabetic kidney complication E11.29 and Chronic obstructive pulmonary disease, unspecified COPD type J44.9 [place] [address] [place] [id number] [place] [address] 16377- 9682 15 Aug, 2017 Type 2 diabetes mellitus with other diabetic kidney complication E11.29 [place] [address] [place] [id number] [place] [address] 82972- 3063 12 Aug, 2017 Gastroesophageal reflux disease without esophagitis K21.9 ; 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.01 ; Chronic pain syndrome G89.4 ; Essential hypertension I10 and Type 2 diabetes mellitus with other diabetic kidney complication E11.29 [place] [address] [place] [address] [address] 98[address] 08 Aug, 2017 Chronic pain syndrome G89.4 [place] [address] [place] [id number] [place] [address] 45503- 9700 Aug, Type 2 diabetes mellitus with other diabetic kidney complication E11.29 [place] [address] [address]39 Jul, Diabetic 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 [place] [address] [address] 1442 Jul, Primary insomnia F51.01 [place] [address] [address] 4360 Jul, [place] [address] [place] [id number] [place] [address] 30201- 4324 Jul, Type 2 diabetes mellitus with other diabetic kidney complication E11.29 and Chronic obstructive pulmonary disease, unspecified COPD type J44.9 [place] [address] [place] [id number] [place] [address] 06375- 2946 Jul, Type 2 diabetes mellitus with other diabetic kidney complication E11.29 [place] [address] [place] [address] 97632- 3731 Jun, Type 2 diabetes mellitus with other diabetic kidney complication E11.29 [place] [address] [place] [address] [address] 5216 Jun, [place] [address] [place] [id number] [place] [address] 49602- 1170 Jun, Chronic obstructive pulmonary disease, unspecified COPD type J44.9 [place] [id number] [place] [address] 45461- 7422 May, Type 2 diabetes mellitus with other diabetic kidney complication E11.29 [place] [address] [place] [id number] [place] [address] 96372- 8691 May, 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.01 and Essential hypertension I10 [place] [address] [place] [id number] [place] [address] 14090- 2717 May, Anemia in other chronic diseases classified elsewhere D63.8 ; Chronic obstructive pulmonary disease, unspecified COPD type J44.9 ; Oxygen desaturation during sleep G47.34 ; Sleep apnea in adult G47.33 and Supplemental oxygen dependent Z99.[address] [place] [address] 03728- 3440 May, Type 2 diabetes mellitus with other diabetic kidney complication E11.29 ; Essential hypertension I10 ; Chronic pain syndrome G89.4 ; BMI 40.0-44.9, adult Z68.41 ; Gastroesophageal reflux disease without esophagitis K21.9 ; [facility] current use of anticoagulant Z79.01 ; [facility] 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 ; Diabetic 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 ; Edema of both legs R60.0 and Supplemental oxygen dependent Z99.81 [place] [address] [address] 6396 May, [place] [address] [place] [id number] [place] [address] 21549- 3825 May, Essential hypertension I10 and Gastroesophageal reflux disease without esophagitis K21.9 [facility] [address] [place] [id number] [place] [address] 77210- 5103 May, [facility] [address] [place] [id number] [place] [address] 09544- 5720 May, Type 2 diabetes mellitus with other diabetic kidney complication E11.29 and [facility] current use of anticoagulant Z79.01 [place] [address] [place] [id number] [place] [address] 95777- 7115 Apr, Chronic pain syndrome G89.4 and Essential hypertension I10 [place] [address] 68068- 3326 Apr, Type 2 diabetes mellitus with other diabetic kidney complication E11.29 [place] [address] 39719- 4406 Apr, Type 2 diabetes mellitus with other diabetic kidney complication E11.29 [place] [address] [place] [id number] [place] [address] 71720- 1231 Apr, Essential hypertension I10 [place] [address] [place] [id number] [place] [address] 29073- 9033 Apr, Gastroesophageal reflux disease without esophagitis K21.9 [place] [address] [place] [id number] [place] [address] 09175- 4538 Apr, Type 2 diabetes mellitus with other diabetic kidney complication E11.29 [facility] [address] [place] [id number] [place] [address] 16288- 0013 Apr, Type 2 diabetes mellitus with other diabetic kidney complication E11.29 and [facility] current use of anticoagulant Z79.01 [facility] [address] [place] [id number] [place] [address] 68517- 5628 Mar, Encounter for immunization Z23 and Preoperative examination Z01.818 [place] [address] [place] [id number] [place] [address] 70152- 8507 Mar, [place] [address] [place] [address] 36358- 1311 Mar, Type 2 diabetes mellitus with other diabetic kidney complication E11.29 [facility] [address] [place] [id number] [place] [address] 02279- 3085 Mar, Type 2 diabetes mellitus with other diabetic kidney complication E11.29 [place] [address] [place] [id number] [place] [address] 84130- 3139 Mar, Gastroesophageal reflux disease without esophagitis K21.9 [place] [address] [place] [id number] [place] [address] 61258- 1892 Mar, Essential hypertension I10 [place] [address] [place] [id number] [place] [address] 35300- 9969 Feb, [facility] current use of anticoagulant Z79.01 [place] [address] [place] [id number] [place] [address] 77350- 6604 Feb, Type 2 diabetes mellitus with other diabetic kidney complication E11.29 [place] [address] [place] [id number] [place] [address] 15916- 9114 Feb, Type 2 diabetes mellitus with other diabetic kidney complication E11.29 [place] [address] [place] [id number] [place] [address] 86209- 0531 Feb, Type 2 diabetes mellitus with other diabetic kidney complication E11.29 [place] [address] [place] [id number] [place] [address] 32521- 5762 Feb, Gastroesophageal reflux disease without esophagitis K21.9 [place] [address] [place] [id number] [place] [address] 46361- 6929 Feb, Type 2 diabetes mellitus with other diabetic kidney complication E11.29 [place] [address] [place] [id number] [place] [address] 00767- 8701 Feb, [facility] current use of anticoagulant Z79.01 [place] [address] [place] [id number] [place] [address] 61165- 9311 Jan, Type 2 diabetes mellitus with other diabetic kidney complication E11.29 [facility] [address], [place] [address] 6423 Jan, 2017 Type 2 diabetes mellitus with other diabetic kidney complication E11.29 [facility] [address], [place] [address]- 7789 Jan, Chronic pain syndrome G89.4 [facility] [address] [place] [id number], [place] [address]- 7845 Jan, [facility] [address] [place] [id number] [address]- 6405 Jan, [facility] [address], [place] [address]- 4365 Jan, [facility] [address], [place] [address]- 8196 Jan, [facility] [address], [place] [address]- 8005 Jan, Primary insomnia F51.01 ; Type 2 diabetes mellitus with other diabetic kidney complication E11.29 ; Chronic pain syndrome G89.4 and Essential hypertension I10 [facility] [address], [place] [address]- 3907 Jan, Primary insomnia F51.01 [facility] [address], [place] [address]- 3466 Jan, Type 2 diabetes mellitus with other diabetic kidney complication E11.29 [facility] [address], [place] [address]- 5353 Jan, [facility] [address], [place] [address]- 4202 Jan, Chronic obstructive pulmonary disease, unspecified COPD type J44.9 [facility] [address], [place] [address]- 8124 Jan, Essential hypertension I10 ; Type 2 diabetes mellitus with other diabetic kidney complication E11.29 ; Chronic obstructive pulmonary disease, unspecified COPD type J44.9 ; Chronic kidney disease, stage 4 (severe) N18.4 ; Right carpal tunnel syndrome G56.01 ; 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 ; [employer] (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 and Diabetic 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 [facility] [address] [place] [id number] [place] [address] 19712- 2964 Jan, Gastroesophageal reflux disease without esophagitis K21.9 [facility] [address] [place] [id number] [place] [address] 28598- 5740 Dec, [facility] [address] 62216- 6629 Dec, [facility] [address] [place] [id number] [place] [address] 80872- 5219 Dec, 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.01 ; Chronic pain syndrome G89.4 and Essential hypertension I10 [facility] [address] [place] [id number] [place] [address] 28106- 5258 Dec, [facility] [address] [place] [id number] [place] [address] 93365- 5649 Dec, Type 2 diabetes mellitus with other diabetic kidney complication E11.29 [facility] [address] [place] [address] [address]- 0692 Dec, [facility] [address] [place] [id number] [place] [address] 87338- 6155 Dec, Gastroesophageal reflux disease without esophagitis K21.9 [facility] [address] [place] [id number] [place] [address] 47002- 2741 November, Type 2 diabetes mellitus with other diabetic kidney complication E11.29 [facility] [address] [place] [id number] [place] [address] 98946- 5531 November, [facility] [address] [place] [id number] [place] [address] 72583- 6998 November, Type 2 diabetes mellitus with other diabetic kidney complication E11.29 [facility] [address], [place] [address]- 4959 November, [facility] [address] [place] [id number] [place] [address] 07081- 6551 November, Type 2 diabetes mellitus with other diabetic kidney complication E11.29 [facility] [address] [place] [id number] [place] [address] 67038- 2504 November, [facility] [address] [place] [id number] [place] [address] 44424- 9585 Oct, Essential hypertension I10 [place] [address] [place] [id number] [place] [address] 47358- 5117 Oct, Psoriasis of scalp L40.9 [facility] [address] [place] [id number] [place] [address] 09124- 2370 Oct, Essential hypertension I10 and Chronic pain syndrome G89.4 [facility] [address] [place] [id number] [place] [address] 19979- 9972 Oct, [facility] [address] [place] [id number] [place] [address] 16480- 5488 Sep, Type 2 diabetes mellitus with other diabetic kidney complication E11.29 [facility] [address] [place] [id number] [place] [address] 19795- 9418 Sep, [facility] [address] [place] [id number] [place] [address] 07727- 2099 Sep, Type 2 diabetes mellitus with other diabetic kidney complication E11.29 [facility] [address], [place] [address]- 5448 Sep, Type 2 diabetes mellitus with other diabetic kidney complication E11.29 [facility] [address] [place] [id number] [place] [address] 19574- 5395 Sep, Type 2 diabetes mellitus with other diabetic kidney complication E11.29 ; Chronic kidney disease, stage 4 (severe) N18.4 ; Chronic obstructive pulmonary disease, unspecified COPD type J44.9 ; Iron deficiency anemia due to chronic blood loss D50.0 ; 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.01 ; Gastroesophageal reflux disease without esophagitis K21.9 ; Essential hypertension I10 ; Primary insomnia F51.01 ; Depression, unspecified depression type F32.9 ; Chronic pain syndrome G89.4 ; Wrist pain, right M25.531 ; Paresthesia of right upper extremity R20.2 and Psoriasis of scalp L40.9 [place] [id number] [place] [address] 28898- 6001 Sep, [place] [id number] [place] [address] 95679- 6889 Aug, Essential hypertension I10 [address] 76209- 3341 Aug, History of DVT (deep vein thrombosis) Z86.[address] 66928- 1031 Aug, [place] [id number] [place] [address] 23540- 1969 Jul, [address] 57206- 3435 Jul, [place] [id number] [place] [address] 31438- 7647 Jul, [facility] current use of anticoagulant Z79.01 ; Chronic pain syndrome G89.4 and Chronic kidney disease, stage 4 (severe) N18.4 [place] [id number] [place] [address] 84320- 3051 Jul, [address] 97531- 3536 Jul, [place] [id number] [place] [address] 68842- 1330 Jul, [address] 83084- 8090 Jul, [place] [address], [place] [address]- 5381 Jul, [place] [id number] [place] [address] 87357- 3182 Jul, Type 2 diabetes mellitus with other diabetic kidney complication E11.29 [place] [id number] [place] [address] 50252- 5102 Jul, History of DVT (deep vein thrombosis) Z86.718 [place] [address] [place] [id number] [place] [address] 52739- 5710 Jun, [address] 24609- 5788 Jun, History of DVT (deep vein thrombosis) Z86.718 [place] [id number] [place] [address] 55975- 2713 Jun, Post traumatic stress disorder (PTSD) F43.10 [place] [id number] [place] [address] 00380- 1695 07 Jun, 2016 Type 2 diabetes mellitus with other diabetic kidney complication E11.29 ; Diabetic 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 ; Iron deficiency anemia due to chronic blood loss D50.0 ; Chronic obstructive pulmonary disease, unspecified COPD type J44.9 ; 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.01 ; History [...] pain M79.641 and Right wrist pain M25.531 [address] [place] [address] 84233- 6182 May, [facility] [address] [facility] [id number] [place] [address]- 9884 May, [facility] [address] [facility] [id number] [place] [address]- 6386 May, [facility] [address] [facility] [id number] [place] [address]- 2236 May, [facility] [address] [facility] [id number] [place] [address], [place] [address] 2541 May, Anemia in other chronic diseases classified elsewhere D63.8 [facility] [address] [facility] [id number] [place] [address], [place] [address]- 3946 May, [facility] [address] [place] [address], [place] [address]- 2883 Apr, [facility] [address] [place] [address], [place] [address]- 2272 27 Mar, 2016 Dermatofibroma D23.9 [facility] [address] [place] [address]- 9056 20 Mar, 2016 [facility] [address] [place] [address], [place] [address] 2549 14 Mar, 2016 Chronic pain syndrome G89.4 [facility] [address] [place] [address] 2546 09 Mar, 2016 [facility] [address] [place] [address] 2546 Mar, [facility] [address] [place] [address] 2546 Mar, [facility] [address] [place] [address] 2546 Feb, [facility] [address] [facility] [id number] [place] [address] 2546 Feb, [facility] [address] [place] [address]- 7410 Feb, [place] [address] [address]- 4999 Feb, [place] [address] [place] [id number] [place] [address] 94507- 4078 Feb, [place] [address] [place] [address] 48442- 4428 Feb, [place] [address] [place] [id number] [place] [address] 38761- 9192 Feb, Type 2 diabetes mellitus with other diabetic kidney complication E11.29 ; Diabetic 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 ; Iron deficiency anemia due to chronic blood loss D50.0 ; Chronic obstructive pulmonary disease, unspecified COPD type J44.9 ; 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.01 ; History of DVT (deep vein thrombosis) Z86.718 ; Chronic pain syndrome G89.4 ; Oxygen desaturation during sleep G47.34 ; Sleep apnea in adult G47.33 ; Gastroesophageal reflux disease without esophagitis K21.9 ; Essential hypertension I10 ; Primary insomnia F51.01 ; Depression, unspecified depression type F32.9 and Renal failure, chronic, stage 4 (severe) N18.4 [place] [address] [place] [address] 01091- 5360 Feb, Skin tags, multiple acquired L91.8 [place] [address], [place] [address]- 4031 Jan, [facility] [address] [place] [address] [id number] Jan, Dental examination Z01.20 [place] [address] [place] [address] 61326- 8713 Jan, [place] [address] [place] [id number] [place] [address] 41666- 3888 Jan, Type 2 diabetes mellitus with other diabetic kidney complication E11.29 ; Diabetic 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 ; Iron deficiency anemia due to chronic blood loss D50.0 ; Chronic obstructive pulmonary disease, unspecified COPD type J44.9 ; 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.01 ; History of DVT (deep vein thrombosis) Z86.718 ; Chronic pain syndrome G89.4 ; Oxygen desaturation during sleep G47.34 ; Sleep apnea in adult G47.33 ; Gastroesophageal reflux disease without esophagitis K21.9 ; Essential hypertension I10 ; Primary insomnia F51.01 ; Depression, unspecified depression type F32.9 ; Skin lesion L98.9 and Renal failure, chronic, stage 4 (severe) N18.4 [facility] [address] [place] [address] 93979- 0463 Dec, Diabetes type 2, uncontrolled E11.65 [place] [address] 40636- 2634 Dec, [place] [address] 96094- 3770 Dec, Type 2 diabetes mellitus with other diabetic kidney complication E11.29 ; Diabetic 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 ; Iron deficiency anemia due to chronic blood loss D50.0 ; Chronic obstructive pulmonary disease, unspecified COPD type J44.9 ; 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.01 ; History of DVT (deep vein thrombosis) Z86.718 ; Chronic pain syndrome G89.4 ; Oxygen desaturation during sleep G47.34 ; Sleep apnea in adult G47.33 ; Gastroesophageal reflux disease without esophagitis K21.9 ; Essential hypertension I10 ; Primary insomnia F51.01 and Depression, unspecified depression type F32.9 [facility] [address] [place] [address] [id number] Dec, Dental caries K02.9 [facility] [address] [facility] [id number] [place] [address] [id number] Dec, [facility] [address] [id number] [place] [address] [id number] Dec, Dental examination Z01.20 [facility] [address] [place] [address] [id number] November, Dental examination Z01.20 and Dental caries K02.9 [facility] [id number] [id number] Oct, [facility] [id number] [place] [address] [id number] Oct, [facility] [id number] [place] [address] [id number] Sep, [facility] [id number] [place] [address] [id number] Sep, [facility] [address] [place] [id number] [place] [address] [id number] Sep, [facility] [id number] [place] [address] [id number] Sep, Other chronic pain 338.29 [facility] [id number] [place] [address] [id number] Aug, Diabetes type 2, uncontrolled E11.65 and Morbid obesity due to excess calories E66.01 [facility] [id number] [place] [address] [id number] Aug, Hair loss L65.9 [facility] [id number] [place] [address] [id number] Aug, [facility] [id number] [place] [address] [id number] Jul, [facility] [id number] [place] [address] [id number] Jul, [facility] [id number] [place] [address] [id number] Jun, [facility] [id number] [place] [address] [id number] Jun, Hair loss L65.9 and Disorder of the skin and subcutaneous tissue, unspecified L98.9 [facility] [id number] [place] [address] [id number] May, Type 2 diabetes mellitus with other diabetic kidney complication E11.29 ; Type 2 diabetes mellitus with hyperglycemia E11.65 ; Morbid obesity due to excess calories E66.01 and Essential hypertension I10 [facility] [id number] [place] [address] [id number] May, Diabetes type 2, uncontrolled E11.65 ; Encounter for immunization Z23 and Morbid obesity due to excess calories E66.01 [id number] [place] [address] [id number] May, [facility] [id number] [place] [address] 03592- 9169 Apr, [id number] [place] [address] [id number] Apr, Hyperglycemia R73.[address] [id number] Apr, [address] [id number] Apr, Depression F32.9 ; Encounter for immunization Z23 ; Hyperglycemia R73.9 and Anemia in other chronic diseases classified elsewhere D63.8 [facility] [id number] [place] [address] [id number] Mar, [id number] [place] [address] [id number] Feb, Positive occult stool blood test 792.[address] [id number] Feb, Depression 311 ; Other chronic pain 338.29 and Diabetes with renal manifestations, type II or unspecified type, not stated as uncontrolled 250.40 [facility] [address]00565100[place] [address] Feb, Occult blood in stools 792.[id number] [place] [address] [id number] Feb, Anemia 285.9 ; Occult blood positive stool 792.1 ; Unspecified essential hypertension 401.9 and Other chronic pain 338.29 [address] [place] [address] [id number] Feb, [id number] [place] [address] [id number] Feb, Anemia 285.9 [id number] [place] [address] [id number] Feb, [facility] [address] [id number] [id number] Feb, [facility] [id number] [place] [address] [id number] Feb, Diabetes with renal manifestations, type II or unspecified type, not stated as uncontrolled 250.40 ; Other chronic pain 338.29 ; Unspecified essential hypertension 401.9 ; Anemia 285.9 and Depression 311 [facility] [place] [id number][place] [id number] Jan, [facility] [id number], [place] [id number] Jan, Anemia 285.9 and Follow up V67.9 [facility] [id number], [place] [id number] Jan, [facility] [id number] [place] [address] [id number] Jan, [facility] [id number], [place] [id number] Jan, [facility] [id number], [place] [id number] Dec, [facility] [id number] [place] [address] 30759- 6396 Oct, [facility] [id number] [place] [address] 30091- 9082 Oct, [facility] [id number] [place] [address] 29495 2546 Sep, [facility] [address] [id number], [place] [id number] Sep, [facility] [id number] [place] [address] 94272- 1656 Sep, [facility] [address] [id number], [place] [id number] Aug, [facility] [id number] [place] [address] 71448- 2788 Aug, [facility] [place] [facility] [address] [facility] [id number], [place] [address]- 0772 Aug, [facility] [place] [address] [facility] [id number] [place] [id number] Aug, 2014 [facility] [place] [facility] [address] [id number] [place] [address]- 7356 Aug, [facility] [place] [facility] [id number] [place] [address]- 9756 Aug, 2014 [facility] [place] [address] [facility] [id number] [place] [id number] Aug, [facility] [place] [facility] [id number] [place] [address]- 9516 Aug, [facility] [place] [address] [id number], [place] [id number] Jul, [facility] [place] [facility] [id number] [place] [address]- 6936 Jul, [facility] [place] [facility] [id number] [address]- 2880 Jul, [facility] [place] [address] [facility] [id number] [place] [id number] Jul, [facility] [place] [facility] [id number], [place] [address]- 4478 Jul, [facility] [place] [id number], [place] [id number] Jul, [facility] [place] [facility] [id number] [address]- 2751 Jul, [facility] [place] [address] [facility] [id number] [place] [id number] Jun, [facility] [place] [address] [facility] [id number] [place] [id number] Jun, [facility] [place] [facility] [id number] [address]- 5333 Jun, [facility] [place] [facility] [id number], [place] [address]- 6176 Jun, [facility] [place] [address] [id number] [place] [id number] Jun, [facility] [place] [facility] [address] [facility] [id number] [place] [address]- 4326 Jun, [facility] [place] [address] [id number], [place] [id number] May, [facility] [place] [facility] [address] [facility] [id number], [place] [address]- 9479 May, [facility] [place] [facility] [address] [facility] [id number] [address]- 1761 May, [facility] [place] [address] [id number] [place] [id number] Apr, [facility] [place] [facility] [address] [id number] [address]- 7368 Apr, [facility] [place] [address] [id number], [place] [id number] Apr, [facility] [place] [address] [id number], [place] [id number] Apr, [facility] [place] [facility] [address] [facility] [id number], [place] [address]- 0987 Apr, [facility] [place] [facility] [address] [facility] [id number], [place] 46613731- 1688 Apr, [facility] [place] [address] [id number], [place] [id number] Mar, [facility] [place] [facility] [address] [facility] [id number] [address]- 0807 18 Mar, 2014 [facility] [place] [address] [id number], [place] [id number] Mar, [facility] [place] [facility] [address] [facility] [id number] [address]- 4636 17 Mar, 2014 [facility] [place] [address] [facility] [id number], [place] [id number] 16 Mar, 2014 [facility] [place] [facility] [address] [facility] [id number], [place] [address]- 1956 Mar, [facility] [place] [address] [id number] [place] [id number] Mar, [facility] [place] [facility] [address] [id number] [place] [address]- 1586 Mar, [facility] [place] [address] [id number] [place] [id number] Mar, [facility] [place] [facility] [address] [id number] [place] [address]- 0537 Mar, [facility] [place] [address] [id number] [place] [id number] Feb, [facility] [place] [facility] [address] [facility] [id number] [place] [address]- 2506 Feb, [facility] [place] [address] [id number] [place] [id number] Jan, [facility] [place] [facility] [address] [facility] [id number] [address]- 7345 Jan, [facility] [place] [address] [facility] [id number] [place] [id number] Jan, [facility] [place] [facility] [address] [facility] [id number] [address]- 6562 Jan, [facility] [place] [address] [id number] [place] [id number] Jan, [facility] [place] [facility] [address] [facility] [id number], [place] [address]- 8382 Jan, [facility] [place] [facility] [address] [facility] [id number], [place] [address]- 1079 Dec, [facility] [place] [facility] [address] [facility] [id number], [place] [address]- 5309 Dec, [facility] [place] [address] [id number] [place] [id number] November, [facility] [place] [facility] [address] [facility] [id number] [place] [address]- 5115 November, [facility] [place] [address] [facility] [id number] [place] [id number] November, [facility] [address] [id number] [place] [address]- 4068 November, [facility] [address] [facility] [id number] [place] [id number] Oct, [facility] [place] [facility] [address] [facility] [id number] [place] [address]- 3802 Oct, [facility] [place] [facility] [address] [facility] [id number] [place] [address]- 3619 Oct, [facility] [place] [facility] [address] [facility] [id number] [place] [address]- 1290 Oct, [facility] [place] [facility] [address] [id number] [place] [address]- 7114 Oct, [facility] [place] [facility] [address] [id number] [place] [address]- 4156 Oct, [facility] [place] [address] [facility] [id number], [place] 715467712 Sep, [facility] [address] [facility] [id number], [place] 809493393 Sep, [facility] [place] [facility] [address] [id number] [address]- 0434 Sep, [facility] [place] [facility] [address] [facility] [id number][place] [address]- 7838 Sep, [facility] [address] [facility] [id number], [place] 217650999 Sep, [facility] [place] [facility] [address] [facility] [id number] [place] [address]- 8567 Sep, [facility] [place] [facility] [address] [facility] [id number] [place] [address]- 4486 Aug, [facility] [place] [facility] [address] [facility] [id number] [address]- 9679 Aug, [facility] [place] [address] [facility] [id number], [place] 939069556 Aug, [facility] [place] [address] [facility] [id number] [place] [id number] Aug, [facility] [place] [facility] [address] [facility] [id number], [place] [address]- 2546 Aug, [facility] [place] [address] [facility] [id number] [place] [id number] Aug, [facility] [place] [facility] [address] [facility] [id number][place] [address]- 2546 Aug, [facility] [place] [address] [facility] [id number] [place] [id number] Aug, [facility] [place] [facility] [address] [id number] [place] [address]- 6896 Aug, [facility] [place] [address] [facility] [id number] [place] [id number] Aug, [facility] [place] [facility] [address]00565100[place], [place] [address]- 0786 Aug, [facility] [place] [address] [facility] [id number], [place] [id number] Aug, [facility] [place] [facility] [id number], [place] [address]- 9926 Aug, [facility] [place] [facility] [address] [facility] [id number], [place] [address]- 6906 Jul, [facility] [place] [address] [facility] [id number], [place] 744739684 Jun, [facility] [place] [facility] [address] [facility] [id number], [place] [address]- 0986 Jun, [facility] [place] [facility] [address] [facility] [id number][place] [address]- 2286 Jun, [facility] [place] [facility] [address] [facility] [id number], [place] [address]- 1546 Jun, [facility] [place] [address] [facility] [id number], [place] 242218191 Jun, [facility] [place] [facility] [address] [id number], [place] [address]- 1739 Jun, [facility] [place] [facility] [address] [facility] [id number][place] [address]- 6107 Jun, [facility] [place] [address] [facility] [id number], [place] 084422293 Jun, [facility] [place] [facility] [address] [facility] [id number], [place] [address]- 9337 Jun, [facility] [place] [facility] [address] [facility] [id number][place] [address]- 1626 May, [facility] [place] [address] [facility] [id number], [place] [id number] May, [facility] [place] [facility] [address] [facility] [id number], [place] [address]- 2891 May, [facility] [place] [facility] [address] [facility] [id number], [place] [address]- 0283 May, [facility] [place] [facility] [address] [facility] [id number] [address]- 8739 May, [facility] [place] [facility] [address] [facility] [id number], [place] [address]- 4407 May, [facility] [place] [address] [id number], [place] 587891858 May, [facility] [place] [facility] [address] [facility] [id number], [place] [address]- 6571 May, [facility] [place] [address] [facility] [id number], [place] [id number] May, [facility] [place] [facility] [address] [facility] [id number], [place] [address]- 0951 May, [facility] [place] [address] [facility] [id number], [place] 406685208 Apr, [facility] [place] [facility] [address] [facility] [id number] [address]- 8295 Apr, [facility] [place] [facility] [address] [facility] [id number] [address]- 8006 Apr, [facility] [place] [address] [facility] [id number], [place] 768683994 Apr, [facility] [place] [facility] [address] [facility] [id number], [place] [address]- 3570 Apr, [facility] [address] [facility] [id number], [place] [address]- 0601 Apr, [facility] [place] [address] [facility] [id number], [place] [id number] Apr, [facility] [place] [facility] [address] [facility] [id number], [place] [address]- 9060 Apr, [facility] [place] [facility] [address] [id number], [place] [address]- 5335 Apr, [facility] [address] [id number], [place] [address]- 8548 Apr, [facility] [place] [address] [id number], [place] 668450426 Apr, [facility] [place] [facility] [address] [facility] [id number], [place] [address]- 5741 Apr, [facility] [place] [address] [id number], [place] 729675297 Apr, [facility] [place] [facility] [address] [facility] [id number], [place] [address]- 3746 Apr, [facility] [place] [id number], [place] 496383076 Apr, [facility] [place] [facility] [address] [facility] [id number][place] [address]- 4013 Apr, [facility] [place] [facility] [address] [facility] [id number] [address]- 2439 Apr, [facility] [place] [facility] [address] [facility] [id number], [place] [address]- 4036 Apr, [facility] [place] [address] [facility] [id number], [place] 846915003 Apr, [facility] [place] [facility] [address] [facility] [id number], [place] [address]- 5893 Mar, [facility] [address] [facility] [id number], [place] [address]- 1367 Mar, [facility] [place] [address] [id number] [place] [id number] Mar, [facility] [place] [address] [id number] [place] 400228650 Mar, [facility] [place] [address] [id number] [place] 529351647 Mar, [facility] [place] [address] [id number] [place] [id number] Feb, [facility] [place] [address] [id number] [place] 470350298 Feb, [facility] [place] [address] [id number] [place] 901270382 Feb, [facility] [address] [facility] [id number], [place] [address]- 8875 Feb, [facility] [place] [address] [id number] [place] 379047233 Feb, [facility] [place] [address] [id number] [place] 808367584 Feb, [facility] [place] [address] [id number] [place] 703146648 Feb, [facility] [place] [address] [id number] [place] 697924820 Feb, [facility] [place] [address] [id number] [place] [id number] Feb, [facility] [place] [address] [id number] [place] 383706796 Jan, [facility] [place] [address] [id number] [place] 410904744 Jan, [facility] [place] [address] [id number] [place] 106987544 Jan, [facility] [place] [address] [id number] [place] 906613606 Jan, [facility] [place] [address] [id number] [place] 824394786 Jan, [facility] [address] [facility] [id number], [place] [address]- 1422 Jan, [facility] [place] [address] [id number] [place] 4[place]19080 Jan, [facility] [place] [address] [id number] [place] 723986291 Jan, [facility] [place] [address] [id number] [place] 259693437 Dec, [facility] [place] [address] [id number] [place] 734973781 November, [facility] [place] [address] [id number] [place] 272699744 November, [facility] [place] [address] [id number] [place] 988227418 November, [facility] [place] [address] [id number] [place] 155480038 November, [facility] [place] [address] [id number] [place] 320363042 November, [facility] [place] [address] [id number] [place] 907344819 November, [facility] [place] [address] [id number] [place] 136846704 Jul, [facility] [place] [address] [id number] [place] 308255501 Jul, [facility] [place] [address] [id number] [place] [id number] Jul, [facility] [place] [address] [id number] [place] 318988989 Jun, [facility] [address] [facility] [id number], [place] [address]- 1751 Jun, [facility] [place] [address] [id number] [place] [id number] May, [facility] [address] [facility] [id number] [address]- 8303 May, [facility] [place] [address] [id number], [place] 268796902 May, [facility] [address] [facility] [id number], [place] [address]- 6001 May, [facility] [place] [address] [id number], [place] 149454362 May, [facility] [address] [facility] [id number], [place] [address]- 9532 May, [facility] [place] [address] [id number][place] [id number] Apr, [facility] [address] [facility] [id number], [place] [address] Apr, [facility] [place] [facility] [address] [facility] [id number] [address] Apr, [facility] [place] [address] [id number][place] [id number] Apr, [facility] [place] [address] [id number][place] [id number] Apr, [facility] [id number] [address] Apr, [facility] [address] [facility] [id number], [place] [address] Apr, [facility] [place] [address] [id number][place] [id number] Apr, [facility] [place] [facility] [address] [facility] [id number], [place] [address] Apr, [facility] [place] [address] [id number], [place] [id number] Apr, [facility] [place] [address] [id number], [place] [id number] Apr, [facility] [place] [address] [id number][place] [id number] Mar, [facility] [place] [address] [id number], [place] [id number] Feb, [facility] [place] [address] [id number] [place] [id number] Jan, [facility] [place] [address] [id number] [place] [id number] Dec, [facility] [place] [address] [id number] [place] [id number] Dec, [facility] [place] [address] [id number] [place] [id number] Dec, [facility] [place] [address] [id number] [place] [id number] Dec, [facility] [place] [address] [id number] [place] [id number] Dec, [facility] [place] [address] [id number] [place] [id number] November, [facility] [place] [address] [id number] [place] [id number] November, [facility] [place] [address] [id number] [place] [id number] November, [facility] [address] [facility] [id number], [place] [address] November, [facility] [place] [address] [id number] [place] [id number] November, [facility] [place] [address] [id number] [place] [id number] November, [facility] [place] [address] [id number] [place] [id number] Oct, [facility] [place] [address] [id number] [place] [id number] Oct, [facility] [place] [address] [id number] [place] [id number] Oct, [facility] [place] [address] [id number] [place] [address] Oct, [facility] [place] [address] [id number] [place] [id number] Oct, [facility] [place] [address] [id number] [place] [id number] Oct, [facility] [place] [address] [id number][place] [id number] Sep, [facility] [place] [address] [id number] [place] [id number] Aug, [facility] [place] [address] [id number] [place] [id number] Aug, [facility] [place] [address] [facility] [id number] [place] [id number] Jul, [facility] [place] [facility] [address] [facility] [id number] [place] [address], [place] [address] Jun, [facility] [place] [facility] [address] [id number] [place] [address] Jun, [facility] [place] [facility] [id number] [place] [address], [place] [address] Jun, [facility] [place] [facility] [id number] [place] [address] Jun, [facility] [place] [facility] [address] [id number] [address] May, [facility] [place] [facility] [address] [id number], [place] [address] May, [facility] [place] [facility] [id number] Apr, [facility] [place] [facility] [id number], [place] [address] Apr, [facility] [place] [facility] [address] [id number], [place] [address] Apr, [facility] [place] [facility] [address] [facility] [id number], [place] [address] Feb, [facility] [place] [facility] [address] [facility] [id number], [place] [address] Aug, [facility] [place] [facility] [address] [facility] [id number], [place] [address] Jul, [facility] [place] [facility] [id number], [place] [address] 30 Jun, 2010 [facility] [place] [facility] [address] [id number] [place] [address] May, [facility] [place] [facility] [address] [id number] [place] [address] May, [facility] [place] [facility] [address] [id number] [place] [address] 25[address] May, [facility] [place] [facility] [address] [id number], [place] [address]46 May, [facility] [place] [facility] [address] [id number] [place] [address] 2546 May, [facility] [place] [facility] [address] [id number] [place] [address] Aug, [facility] [place] [facility] [address] [id number], [place] [address] Jun, [facility] [place] [facility] [address] [id number], [place] [address] Jun, [facility] [place] [facility] [address] [id number], [place] [address] Jun, [facility] [place] [facility] [address] [id number], [place] [address] 24 May, 2009 [facility] [place] [facility] [address] [id number] [address] 28 Apr, 2009 [facility] [address] [id number], [place] [address] 27 Apr, 2009 [facility] [address] [id number], [place] [address]40 15 Apr, 2009 [facility] [address] [id number], [place] [address]41 20 Jan, 2009 [facility] [address] [id number], [place] [address]46 13 Oct, 2008 [facility] [address] [facility] [id number] [place] [address] May, [facility] [address] [facility] [id number] [place] [address] May, IMMUNIZATIONS No Known Immunizations SOCIAL HISTORY [...] Dialysis Ruthy Reveles 2012 -Dr. Simon now [facility] Medical History Colonoscopy (polyps 2 ) [...]
--- OUTSIDE RECORDS SUMMARY | 2017-12-22 19:34 | XMS REPORT ---
Author Author CHELSY VILLAFANA Organization [facility] Address [address] [place] [address] Care Team Providers Care Restoration Technician Name Role Phone CHELSY VILLAFANA Unavailable PROBLEMS Type Condition ICD9-CM Code TBY32-TU Code Onset Dates Condition Status SNOMED Code Problem Chronic pain syndrome G89.4 Active 852332257 Problem Type 2 diabetes mellitus with hyperglycemia E11.65 Active 878882244280511 Problem Primary insomnia F51.01 Active 3769803 Problem Bilateral lower extremity edema R60.0 Active 996050349 Problem Anemia in other chronic diseases classified elsewhere D63.8 Active 692410975 Problem Supplemental oxygen dependent Z99.81 Active 737670756189 Problem Right carpal tunnel syndrome G56.01 Active 024555461107612 Problem 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 Active 944596082784712 Problem Paresthesia of right upper extremity R20.2 Active 03931937 Problem Chronic kidney disease, stage 4 (severe) N18.4 Active 429240241 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 970507935 Problem Psoriasis of scalp L40.9 Active 930530293 Problem Gastroesophageal reflux disease without esophagitis K21.9 Active 045070463 Problem Chronic obstructive pulmonary disease, unspecified COPD type J44.9 Active 25414331 Problem Type 2 diabetes mellitus with other diabetic kidney complication E11.29 Active 124499242 Problem Diabetic 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 Active 61980630 Problem History of DVT (deep vein thrombosis) Z86.718 Active 046502655 Problem [employer]CI current use of anticoagulant Z79.01 Active 578834653 Problem Oxygen desaturation during sleep G47.34 Active 778194549 Problem Essential hypertension I10 Active 21093758 Problem Depression, unspecified depression type F32.9 Active 22353325 Problem Sleep apnea in adult G47.33 Active 03859456 ALLERGIES No Information ENCOUNTERS Encounter Location Date Diagnosis [facility] [address] [address] November, [facility] [id number] [place] [address] 56360- 4103 November, [facility] [address], [place] [address] November, [facility] [id number] [place] [address] 85698- 7402 Oct, Type 2 diabetes mellitus with other diabetic kidney complication E11.29 [facility] [id number] [place] [address] 21996- 8370 Oct, Primary insomnia F51.01 [place] [id number] [id number] Oct, Bilateral lower extremity edema R60.0 [place] [id number] [place] [address] 07672- 6183 Oct, [facility] [id number] [place] [address] 99857- 8812 Sep, Type 2 diabetes mellitus with other diabetic kidney complication E11.29 and Chronic obstructive pulmonary disease, unspecified COPD type J44.9 [place] [address], [place] [address] 15 Aug, 2017 Type 2 diabetes mellitus with other diabetic kidney complication E11.29 [facility] [id number] [place] [address] 20259- 4928 Aug, Gastroesophageal reflux disease without esophagitis K21.9 ; FCI current use of anticoagulant Z79.01 ; Chronic pain syndrome G89.4 ; Essential hypertension I10 and Type 2 diabetes mellitus with other diabetic kidney complication E11.29 [place] [id number] [place] [address] 88490- 7285 08 Aug, 2017 Chronic pain syndrome G89.4 [facility] [id number] [place] [address] 89919- 4253 Aug, Type 2 diabetes mellitus with other diabetic kidney complication E11.29 [facility] [address] [address] 20[address] Jul, Diabetic 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 [facility] [address], [place] [address] 2551 Jul, Primary insomnia F51.01 [facility] [id number] [place] [address] 38797- 3671 Jul, [place] [id number] [place] [address] 54943- 0851 Jul, Type 2 diabetes mellitus with other diabetic kidney complication E11.29 and Chronic obstructive pulmonary disease, unspecified COPD type J44.9 [place] [id number] [place] [address] 31705- 9684 Jul, Type 2 diabetes mellitus with other diabetic kidney complication E11.29 [place] [id number] [place] [address] 24084- 9645 Jun, Type 2 diabetes mellitus with other diabetic kidney complication E11.29 [place] [id number] [place] [address] 19265- 1250 Jun, [place] [id number] [place] [address] 48074- 0802 Jun, Chronic obstructive pulmonary disease, unspecified COPD type J44.9 [place] [address], [place] [address] 8705 May, Type 2 diabetes mellitus with other diabetic kidney complication E11.29 [place] [address], [place] [address] 4[address] May, 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 and Essential hypertension I10 [facility] [address], [place] [address] 7898 May, Anemia in other chronic diseases classified elsewhere D63.8 ; Chronic obstructive pulmonary disease, unspecified COPD type J44.9 ; Oxygen desaturation during sleep G47.34 ; Sleep apnea in adult G47.33 and Supplemental oxygen dependent Z99.81 [place] [id number] [place] [address] 50805- 6269 08 May, 2017 Type 2 diabetes mellitus with other diabetic kidney complication E11.29 ; Essential hypertension I10 ; Chronic pain syndrome G89.4 ; BMI 40.0-44.9, adult Z68.41 ; Gastroesophageal reflux disease without esophagitis K21.9 ; 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 ; FCI 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 ; Diabetic 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 ; Edema of both legs R60.0 and Supplemental oxygen dependent Z99.81 [place] [address] [id number] [place] [address] 37061- 4513 May, [place] [address] [id number] [place] [address] 28907- 3803 May, Essential hypertension I10 and Gastroesophageal reflux disease without esophagitis K21.9 [place] [id number] [place] [address] 45036- 2390 May, [place] [address] [id number] [place] [address] 61654- 3167 May, Type 2 diabetes mellitus with other diabetic kidney complication E11.29 and 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 [place] [id number] [place] [address] 65240- 2179 Apr, Chronic pain syndrome G89.4 and Essential hypertension I10 [place] [address] [address] [id number] [place] [address] 63271- 9195 Apr, Type 2 diabetes mellitus with other diabetic kidney complication E11.29 [place] [id number] [place] [address] 85338- 4959 Apr, Type 2 diabetes mellitus with other diabetic kidney complication E11.29 [place] [id number] [place] [address] 05617- 5885 Apr, Essential hypertension I10 [place] [address] [place] [address] [place] [address] 03759- 4599 06 Apr, 2017 Gastroesophageal reflux disease without esophagitis K21.9 [place] [address] [id number] [place] [address] 25931- 2233 05 Apr, 2017 Type 2 diabetes mellitus with other diabetic kidney complication E11.29 [place] [address] [id number] [place] [address] 45449- 7931 Apr, Type 2 diabetes mellitus with other diabetic kidney complication E11.29 and 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 [place] [address] [id number] [place] [address] 46307- 8993 Mar, Encounter for immunization Z23 and Preoperative examination Z01.818 [place] [address] [address] [id number] [place] [address] 60770- 7348 Mar, [place] [address] 92749- 6836 Mar, Type 2 diabetes mellitus with other diabetic kidney complication E11.29 [place] [address] [place] [address] [id number] [place] [address] 29342- 3662 Mar, Type 2 diabetes mellitus with other diabetic kidney complication E11.29 [place] [address] [id number] [place] [address] 41542- 8562 Mar, Gastroesophageal reflux disease without esophagitis K21.9 [place] [address] [address] [id number] [place] [address] 06051- 7788 Mar, Essential hypertension I10 [place] [id number] [place] [address] 43245- 0850 Feb, FCI current use of anticoagulant Z79.01 [place] [address] [address] [id number] [place] [address] 24214- 9347 Feb, Type 2 diabetes mellitus with other diabetic kidney complication E11.29 [place] [address] [address] [id number] [place] [address] 70840- 0762 Feb, Type 2 diabetes mellitus with other diabetic kidney complication E11.29 [facility] [address], [place] [address] 1803 Feb, Type 2 diabetes mellitus with other diabetic kidney complication E11.29 [facility] [id number] [place] [address] 15131 2546 Feb, Gastroesophageal reflux disease without esophagitis K21.9 [facility] [id number] [place] [address] 60169- 4607 Feb, Type 2 diabetes mellitus with other diabetic kidney complication E11.29 [facility] [id number] [place] [address] 00003- 2688 Feb, 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 [facility] [id number] [place] [address] 38742- 6558 Jan, Type 2 diabetes mellitus with other diabetic kidney complication E11.29 [facility] [address] [id number] [place] [address] 25709- 8991 Jan, Type 2 diabetes mellitus with other diabetic kidney complication E11.29 [facility] [id number] [place] [address] 46996- 2001 Jan, Chronic pain syndrome G89.4 [facility] [id number] [place] [address] 72124 2542 Jan, [facility] [address], [place] [address] 2549 Jan, [facility] [address], [place] [address] 2546 Jan, [facility] [address] [id number] [place] [address] 08552 2548 Jan, [facility] [id number] [place] [address] 39348- 2543 Jan, Primary insomnia F51.01 ; Type 2 diabetes mellitus with other diabetic kidney complication E11.29 ; Chronic pain syndrome G89.4 and Essential hypertension I10 [place] [address], [place] [address]- 4741 Jan, Primary insomnia F51.01 [place] [address] [place] [id number] [place] [address] 56418- 9782 Jan, Type 2 diabetes mellitus with other diabetic kidney complication E11.29 [place] [address] [place] [id number] [place] [address] 16520- 9633 Jan, [place] [address] [place] [id number] [place] [address] 17999- 7444 Jan, Chronic obstructive pulmonary disease, unspecified COPD type J44.9 [place] [address] [place] [id number] [place] [address] 20020- 6091 Jan, Essential hypertension I10 ; Type 2 diabetes mellitus with other diabetic kidney complication E11.29 ; Chronic obstructive pulmonary disease, unspecified COPD type J44.9 ; Chronic kidney disease, stage 4 (severe) N18.4 ; Right carpal tunnel syndrome G56.01 ; 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 ; 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 (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 and Diabetic 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 [place] [address] [place] [id number] [place] [address] 40356- 7046 Jan, Gastroesophageal reflux disease without esophagitis K21.9 [place] [address] [place] [id number] [place] [address] 53051- 7037 Dec, [place] [address] [place] [id number] [place] [address] 99562- 8629 Dec, [place] [address] [place] [id number] [place] [address] 37896- 5085 Dec, FCI current use of anticoagulant Z79.01 ; Chronic pain syndrome G89.4 and Essential hypertension I10 [place] [address] [place] [id number] [place] [address] 72160- 1928 Dec, [place] [address] [place] [id number] [place] [address] 37729- 9706 Dec, Type 2 diabetes mellitus with other diabetic kidney complication E11.29 [facility] [address], [place] [address]- 9400 Dec, [facility] [id number] [place] [address] 67305- 3652 Dec, Gastroesophageal reflux disease without esophagitis K21.9 [facility] [id number] [place] [address] 59378- 6982 November, Type 2 diabetes mellitus with other diabetic kidney complication E11.29 [facility] [id number] [place] [address] 06377- 0303 November, [facility] [address] [place] [address] [id number] [place] [address] 84108- 4353 November, Type 2 diabetes mellitus with other diabetic kidney complication E11.29 [facility] [id number] [place] [address] 22409- 4636 November, [facility] [id number] [place] [address] 30877- 3559 November, Type 2 diabetes mellitus with other diabetic kidney complication E11.29 [facility] [id number] [place] [address] 13905- 3343 November, [facility] [id number] [place] [address] 20741- 5236 Oct, Essential hypertension I10 [facility] [id number] [place] [address] 48096- 7071 Oct, Psoriasis of scalp L40.9 [facility] [id number] [place] [address] 95960- 5231 Oct, Essential hypertension I10 and Chronic pain syndrome G89.4 [facility] [id number] [place] [address] 68103- 9678 Oct, [facility] [id number] [place] [address] 85035- 1034 Sep, Type 2 diabetes mellitus with other diabetic kidney complication E11.29 [place] [address] [place] [id number] [place] [address] 65899- 7841 Sep, [place] [address] [place] [id number] [place] [address] 46279- 3684 Sep, Type 2 diabetes mellitus with other diabetic kidney complication E11.29 [place] [address] [place] [id number] [place] [address] 63688- 3640 Sep, Type 2 diabetes mellitus with other diabetic kidney complication E11.29 [place] [address] [place] [id number] [place] [address] 00659- 5975 Sep, Type 2 diabetes mellitus with other diabetic kidney complication E11.29 ; Chronic kidney disease, stage 4 (severe) N18.4 ; Chronic obstructive pulmonary disease, unspecified COPD type J44.9 ; Iron deficiency anemia due to chronic blood loss D50.0 ; FCI current use of anticoagulant Z79.01 ; Gastroesophageal reflux disease without esophagitis K21.9 ; Essential hypertension I10 ; Primary insomnia F51.01 ; Depression, unspecified depression type F32.9 ; Chronic pain syndrome G89.4 ; Wrist pain, right M25.531 ; Paresthesia of right upper extremity R20.2 and Psoriasis of scalp L40.9 [place] [address] [place] [id number] [place] [address] 63272- 1381 Sep, [place] [address] [place] [id number] [place] [address] 44684- 1424 Aug, Essential hypertension I10 [place] [id number] [place] [address] 83912- 2445 Aug, History of DVT (deep vein thrombosis) Z86.718 [place] [address] [place] [id number] [place] [address] 83236- 7697 Aug, [place] [address] [place] [id number] [place] [address] 87084- 9455 Jul, [place] [address] 22073- 0280 Jul, [facility] [address], [place] [address]- 9799 Jul, 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 ; Chronic pain syndrome G89.4 and Chronic kidney disease, stage 4 (severe) N18.4 [facility] [address], [place] [address]- 0669 Jul, [facility] [address] [id number] [place] [address] 52808- 1353 Jul, [facility] [address], [place] [address]- 3999 Jul, [facility] [address] [address]- 4433 Jul, [facility] [address], [place] [address]- 9707 Jul, [facility] [address], [place] [address]- 6955 Jul, Type 2 diabetes mellitus with other diabetic kidney complication E11.29 [facility] [address], [place] [address]- 1603 Jul, History of DVT (deep vein thrombosis) Z86.718 [facility] [address], [place] [address]- 2825 Jun, [facility] [address], [place] [address]- 5750 Jun, History of DVT (deep vein thrombosis) Z86.718 [facility] [address], [place] [address]- 7927 Jun, Post traumatic stress disorder (PTSD) F43.10 [facility] [address], [place] [address]- 6917 07 Jun, 2016 Type 2 diabetes mellitus with other diabetic kidney complication E11.29 ; Diabetic 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 ; Iron deficiency anemia due to chronic blood loss D50.0 ; Chronic obstructive pulmonary disease, unspecified COPD type J44.9 ; FCI current use of anticoagulant Z79.01 ; History [...] pain M79.641 and Right wrist pain M25.531 [place] [address] [place] [id number] [place] [address] 87198- 9619 28 May, 2016 [place] [address] 33108- 1593 May, [place] [address] [place] [id number] [place] [address] 56460- 9857 May, [place] [address] [place] [id number] [place] [address] 09336- 8052 15 May, 2016 [place] [address] [place] [id number] [place] [address] 78633- 5715 May, Anemia in other chronic diseases classified elsewhere D63.8 [place] [address] [place] [id number] [place] [address] 28440- 5282 02 May, 2016 [place] [address] [place] [id number] [place] [address] 33582- 1330 10 Apr, 2016 [place] [address] 41606- 2599 27 Mar, 2016 Dermatofibroma D23.9 [facility] [address] [place] [address] [id number] [place] [address] 94584- 5416 20 Mar, 2016 [place] [address] 23493- 1891 14 Mar, 2016 Chronic pain syndrome G89.4 [facility] [address], [place] [address]- 4393 09 Mar, 2016 [facility] [address], [place] [address]- 6877 Mar, [facility] [address], [place] [address]- 8749 Mar, [facility] [address], [place] [address]- 9252 Feb, [facility] [address], [place] [address]- 9729 Feb, [facility] [address] [address]- 7376 Feb, [facility] [address], [place] [address]- 9508 Feb, [facility] [address], [place] [address]- 5216 Feb, [facility] [address], [place] [address]- 4122 Feb, [facility] [address], [place] [address]- 7270 Feb, Type 2 diabetes mellitus with other diabetic kidney complication E11.29 ; Diabetic 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 ; Iron deficiency anemia due to chronic blood loss D50.0 ; Chronic obstructive pulmonary disease, unspecified COPD type J44.9 ; FCI current use of anticoagulant Z79.01 ; History of DVT (deep vein thrombosis) Z86.718 ; Chronic pain syndrome G89.4 ; Oxygen desaturation during sleep G47.34 ; Sleep apnea in adult G47.33 ; Gastroesophageal reflux disease without esophagitis K21.9 ; Essential hypertension I10 ; Primary insomnia F51.01 ; Depression, unspecified depression type F32.9 and Renal failure, chronic, stage 4 (severe) N18.4 [facility] [address] [address]- 5527 Feb, Skin tags, multiple acquired L91.8 [facility] [address], [place] [address]- 4333 Jan, [facility] [id number] [id number] Jan, Dental examination Z01.20 [place] [address], [place] [address]- 3879 Jan, [place] [address], [place] [address]- 7370 Jan, Type 2 diabetes mellitus with other diabetic kidney complication E11.29 ; Diabetic 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 ; Iron deficiency anemia due to chronic blood loss D50.0 ; Chronic obstructive pulmonary disease, unspecified COPD type J44.9 ; 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 ; History of DVT (deep vein thrombosis) Z86.718 ; Chronic pain syndrome G89.4 ; Oxygen desaturation during sleep G47.34 ; Sleep apnea in adult G47.33 ; Gastroesophageal reflux disease without esophagitis K21.9 ; Essential hypertension I10 ; Primary insomnia F51.01 ; Depression, unspecified depression type F32.9 ; Skin lesion L98.9 and Renal failure, chronic, stage 4 (severe) N18.4 [place] [address], [place] [address]- 2965 Dec, Diabetes type 2, uncontrolled E11.65 [place] [address], [place] [address]- 7280 Dec, [place] [address], [place] [address]- 4266 Dec, Type 2 diabetes mellitus with other diabetic kidney complication E11.29 ; Diabetic 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 ; Iron deficiency anemia due to chronic blood loss D50.0 ; Chronic obstructive pulmonary disease, unspecified COPD type J44.9 ; FCI current use of anticoagulant Z79.01 ; History of DVT (deep vein thrombosis) Z86.718 ; Chronic pain syndrome G89.4 ; Oxygen desaturation during sleep G47.34 ; Sleep apnea in adult G47.33 ; Gastroesophageal reflux disease without esophagitis K21.9 ; Essential hypertension I10 ; Primary insomnia F51.01 and Depression, unspecified depression type F32.9 [facility] [id number] [place] [address] [id number] Dec, Dental caries K02.9 [facility] [id number] [place] [address] [id number] Dec, [facility] [id number] [place] [address] [id number] Dec, Dental examination Z01.20 [facility] [id number] [place] [address] [id number] November, Dental examination Z01.20 and Dental caries K02.9 [facility] [address] [id number] [place] [address] [id number] Oct, [facility] [address] [id number] [place] [address] [id number] Oct, [facility] [address] [place] [address] [id number] Sep, [facility] [address] [id number] [place] [address] [id number] Sep, [facility] [address] [id number] [place] [address] [id number] Sep, [facility] [address] [place] [address] [phone] Sep, Other chronic pain 338.29 [facility] [address] [id number] [place] [address] [id number] Aug, Diabetes type 2, uncontrolled E11.65 and Morbid obesity due to excess calories E66.01 [facility] [address] [id number] [place] [address] [id number] Aug, Hair loss L65.9 [facility] [address] [id number] [place] [address] [id number] Aug, [facility] [address] [place] [address] [phone] Jul, [facility] [id number] [place] [address] [id number] Jul, [id number] [place] [address] [id number] Jun, [facility] [id number] [place] [address] [id number] Jun, Hair loss L65.9 and Disorder of the skin and subcutaneous tissue, unspecified L98.9 [address] [place] [id number] [place] [address] [id number] May, Type 2 diabetes mellitus with other diabetic kidney complication E11.29 ; Type 2 diabetes mellitus with hyperglycemia E11.65 ; Morbid obesity due to excess calories E66.01 and Essential hypertension I10 [address] [id number] [place] [address] [id number] May, Diabetes type 2, uncontrolled E11.65 ; Encounter for immunization Z23 and Morbid obesity due to excess calories E66.01 [address] [place] [id number] [place] [address] [id number] May, [facility] [id number] [place] [address] [id number] 0897 Apr, [address] [id number] [place] [address] [id number] Apr, Hyperglycemia R73.9 [id number] [place] [address] [id number] Apr, [address] [place] [id number] [place] [address] [id number] Apr, Depression F32.9 ; Encounter for immunization Z23 ; Hyperglycemia R73.9 and Anemia in other chronic diseases classified elsewhere D63.8 [facility] [id number][place] [id number] Mar, [facility] [id number] [place] [address] [id number] Feb, Positive occult stool blood test 792.1 [address] [place] [id number] [place] [address] [id number] Feb, Depression 311 ; Other chronic pain 338.29 and Diabetes with renal manifestations, type II or unspecified type, not stated as uncontrolled 250.40 [facility] [id number] [place] [address] [id number] Feb, Occult blood in stools 792.1 [facility] [id number] [place] [address] [id number] Feb, Anemia 285.9 ; Occult blood positive stool 792.1 ; Unspecified essential hypertension 401.9 and Other chronic pain 338.29 [facility] [id number] [place] [address] [id number] Feb, [facility] [id number] [place] [address] [id number] Feb, Anemia 285.9 [facility] [id number] [place] [address] [id number] Feb, [facility] [id number] [place] [address] [id number] Feb, [facility] [id number] [place] [address] [id number] Feb, Diabetes with renal manifestations, type II or unspecified type, not stated as uncontrolled 250.40 ; Other chronic pain 338.29 ; Unspecified essential hypertension 401.9 ; Anemia 285.9 and Depression 311 [facility] [id number] [place] [address] [id number] Jan, [address] [id number] [place] [address] [id number] Jan, Anemia 285.9 and Follow up V67.9 [facility] [id number] [place] [address] [id number] Jan, [facility] [id number] [place] [address] [id number] Jan, [facility] [id number] [place] [address] [id number] Jan, [facility] [id number] [place] [address] [id number] Dec, [facility] [id number] [place] [address] 79990- 4676 Oct, [facility] [place] [facility] [address] [facility] [id number] [address]- 89[address] Oct, [facility] [place] [facility] [address] [facility] [id number], [place] [address]- 1666 Sep, [facility] [address] [facility] [id number][place] [id number] Sep, [facility] [place] [facility] [address] [facility] [id number], [place] [address]- 1236 Sep, [facility] [place] [address] [facility] [id number][place] [id number] Aug, [facility] [place] [facility] [address] [facility] [id number], [place] [address]- 6616 Aug, [facility] [place] [facility] [address] [id number], [place] [address]- 0881 Aug, [facility] [place] [address] [facility] [id number], [place] [id number] Aug, [facility] [place] [facility] [address] [facility] [id number] [address]- 9814 Aug, [facility] [place] [facility] [address] [facility] [id number] [address]- 3206 Aug, [facility] [place] [address] [id number], [place] [id number] Aug, [facility] [place] [facility] [address] [facility] [id number], [place] [address]- 3916 Aug, [facility] [place] [address] [facility] [id number], [place] [id number] Jul, [facility] [place] [facility] [address] [facility] [id number], [place] [address]- 4076 Jul, [facility] [place] [facility] [address] [facility] [id number] [address]- 1556 Jul, [facility] [place] [address] [id number], [place] [id number] Jul, [facility] [place] [facility] [address] [facility] [id number] [address]- 3556 Jul, [facility] [place] [address] [facility] [id number] [place] [id number] Jul, [facility] [place] [facility] [address] [facility] [id number] [address]- 2546 Jul, [facility] [place] [address] [facility] [id number] [place] [id number] Jun, [facility] [place] [address] [facility] [id number], [place] [id number] Jun, [facility] [place] [facility] [address] [facility] [id number] [place] [address]- 7896 Jun, [facility] [place] [facility] [address] [facility] [id number] [address]- 0106 Jun, [facility] [address] [facility] [id number], [place] [id number] Jun, [facility] [place] [facility] [address] [facility] [id number], [place] [address]- 2546 Jun, [facility] [place] [address] [facility] [id number], [place] [id number] May, [facility] [place] [facility] [address] [facility] [id number], [place] [address]- 8756 May, [facility] [place] [facility] [address] [facility] [id number], [place] [address]- 7426 May, [facility] [address] [facility] [id number][place] [id number] Apr, [facility] [place] [facility] [address] [facility] [id number], [place] [address]- 2546 Apr, [facility] [address] [facility] [id number], [place] [id number] Apr, [facility] [address] [facility] [id number], [place] [id number] Apr, [facility] [place] [facility] [address] [facility] [id number], [place] [address]- 0882 Apr, [facility] [place] [facility] [address] [id number] [place] [address]- 7116 Apr, [facility] [address] [id number] [place] [id number] Mar, [facility] [place] [facility] [address] [facility] [id number] [place] [address]- 7430 Mar, [facility] [address] [id number] [place] [id number] Mar, [facility] [place] [facility] [address] [id number] [place] [address]- 1427 Mar, [facility] [address] [id number] [place] [id number] Mar, [facility] [place] [facility] [address] [facility] [id number] [place] [address]- 4191 Mar, [facility] [address] [id number] [place] [id number] Mar, [facility] [place] [facility] [address] [facility] [id number] [address]- 7542 Mar, [facility] [address] [id number] [place] [id number] Mar, [facility] [place] [facility] [address] [facility] [id number] [address]- 9074 Mar, [facility] [address] [id number] [place] [id number] Feb, [facility] [place] [facility] [address] [facility] [id number] [address]- 6865 Feb, [facility] [address] [id number] [place] [id number] Jan, [facility] [place] [facility] [address] [facility] [id number] [place] [address]- 7641 Jan, [facility] [address] [id number] [place] [id number] Jan, [facility] [place] [facility] [address] [facility] [id number] [address]- 9926 Jan, [facility] [address] [id number] [place] [id number] Jan, [facility] [place] [facility] [address] [id number] [place] [address]- 2546 Jan, [facility] [place] [facility] [address] [id number] [place] [address]- 2546 Dec, [facility] [place] [facility] [address] [id number] [place] [address]- 2546 Dec, [facility] [address] [id number] [place] [id number] November, [facility] [place] [facility] [address] [id number] [place] [address]- 6966 November, [facility] [address] [id number] [place] [id number] November, [facility] [place] [facility] [address] [id number] [place] [address]- 8803 November, [facility] [address] [id number], [place] [id number] Oct, [facility] [place] [facility] [address] [id number] [place] [address]- 5196 Oct, [facility] [place] [facility] [address] [facility] [id number] [place] [address]- 5814 Oct, [facility] [place] [facility] [address] [id number] [address]- 2075 Oct, [facility] [place] [facility] [address] [id number] [place] [address]- 2546 Oct, [facility] [place] [facility] [address] [id number] [place] [address]- 7536 Oct, [facility] [address] [id number] [place] [id number] Sep, [facility] [address] [id number] [place] [id number] Sep, [facility] [place] [facility] [address] [facility] [id number][place] [address]- 6346 Sep, [facility] [place] [facility] [address] [facility] [id number] [address]- 1248 Sep, [facility] [address] [facility] [id number], [place] [id number] Sep, [facility] [place] [facility] [address] [facility] [id number], [place] [address]- 8048 Sep, [facility] [place] [facility] [address] [facility] [id number] [address]- 1811 Aug, [facility] [place] [facility] [address] [facility] [id number], [place] [address]- 5714 Aug, [facility] [address] [facility] [id number], [place] 984205597 Aug, [facility] [address] [id number], [place] [id number] Aug, [facility] [place] [facility] [id number], [place] [address]- 6435 Aug, [facility] [address] [facility] [id number], [place] [id number] Aug, [facility] [place] [facility] [id number], [place] [address]- 9243 Aug, [facility] [address] [facility] [id number], [place] [id number] Aug, [facility] [place] [facility] [address] [facility] [id number] [address]- 8479 Aug, [facility] [address] [facility] [id number], [place] [id number] Aug, [facility] [place] [facility] [address] [facility] [id number][place] [address]- 9321 Aug, [facility] [address] [facility] [id number], [place] 772178359 Aug, [facility] [place] [facility] [address]65100[place], [place] [address]- 2546 Aug, [facility] [address] [id number] [address]- 2546 Jul, [facility] [address] [facility] [id number], [place] [id number] Jun, [facility] [address] [facility] [id number] [address]- 2546 Jun, [facility] [address] [id number], [place] [address]- 2546 Jun, [facility] [address] [id number] [address]- 2546 Jun, [facility] [address] [facility] [id number], [place] 138349333 Jun, [facility] [address] [id number], [place] [address]- 2546 Jun, [facility] [address] [facility] [id number][place] [address]- 4226 Jun, [facility] [address] [facility] [id number], [place] 455591828 Jun, [facility] [address] [id number], [place] [address]- 2546 Jun, [facility] [facility] [address] [facility] [id number] [address]- 2546 May, [facility] [address] [facility] [id number], [place] 349669811 May, [facility] [facility] [address] [id number], [place] [address]- 2546 May, [facility] [place] [facility] [address] [facility] [id number] [address]- 2546 May, [facility] [place] [facility] [address] [facility] [id number] [address]- 2546 May, [facility] [place] [facility] [address] [facility] [id number] [address]- 2756 May, [facility] [address] [id number], [place] [id number] May, [facility] [place] [facility] [address] [facility] [id number] [address]- 6976 May, [facility] [address] [id number], [place] [id number] May, [facility] [place] [facility] [address] [facility] [id number], [place] [address]- 4666 May, [facility] [address] [id number], [place] 548110178 Apr, [facility] [place] [facility] [address] [facility] [id number], [place] [address]- 8511 Apr, [facility] [place] [facility] [address] [facility] [id number] [address]- 7580 Apr, [facility] [address] [facility] [id number], [place] 978877442 Apr, [facility] [place] [facility] [address] [facility] [id number], [place] 577008- 4294 Apr, [facility] [place] [facility] [address] [facility] [id number], [place] [address]- 9866 Apr, [facility] [address] [id number], [place] 908247793 Apr, [facility] [place] [facility] [address] [facility] [id number][place] [address]- 2539 Apr, [facility] [place] [facility] [address] [facility] [id number], [place] [address]- 6081 Apr, [facility] [place] [facility] [address] [facility] [id number], [place] [address]- 7951 Apr, [facility] [address] [facility] [id number], [place] [id number] Apr, [facility] [place] [facility] [address] [facility] [id number] [address]- 5107 Apr, [facility] [address] [id number][place] 858627996 Apr, [facility] [address] [facility] [id number] [address]- 6105 Apr, [facility] [address] [id number], [place] [id number] Apr, [facility] [place] [facility] [address] [facility] [id number][place] [address]- 9780 Apr, [facility] [place] [facility] [address] [facility] [id number] [address]- 1532 Apr, [facility] [address] [facility] [id number] [address]- 8755 Apr, [facility] [address] [id number][place] 147668281 Apr, [facility] [address]00565100[place], [place] [address]- 6219 Mar, [facility] [address] [facility] [id number], [place] [address]- 1931 Mar, [facility] [address] [id number][place] [id number] Mar, [facility] [address] [id number], [place] 796730379 Mar, [facility] [address] [id number], [place] [id number] 16 Mar, 2013 [facility] [address] [id number], [place] 048973150 Feb, [facility] [address] [id number], [place] 453410556 Feb, [facility] [address] [id number], [place] 389171358 Feb, [facility] [place] [facility] [address] [facility] [id number], [place] [address] Feb, [facility] [place] [address] [id number][place] [id number] Feb, [facility] [place] [address] [id number][place] [id number] Feb, [facility] [place] [address] [id number] [place] [id number] Feb, [facility] [place] [address] [id number] [place] [id number] Feb, [facility] [place] [address] [id number] [place] [id number] Feb, [facility] [place] [address] [id number] [place] [id number] Jan, [facility] [place] [address] [id number] [place] [id number] Jan, [facility] [place] [address] [id number] [place] [id number] Jan, [facility] [place] [address] [id number] [place] [id number] Jan, [facility] [place] [address] [id number] [place] [id number] Jan, [facility] [address] [facility] [id number], [place] [address] Jan, [facility] [place] [address] [id number] [place] [id number] Jan, [facility] [place] [address] [id number] [place] [id number] Jan, [facility] [place] [address] [id number] [place] [id number] Dec, [facility] [place] [address] [id number] [place] [id number] November, [facility] [place] [address] [id number] [place] [id number] November, [facility] [place] [address] [id number] [place] [id number] November, [facility] [place] [address] [id number] [place] [id number] November, [facility] [place] [address] [id number] [place] [id number] November, [facility] [place] [address] [id number] [place] [id number] November, [facility] [place] [address] [id number] [place] [id number] Jul, [facility] [place] [address] [id number] [place] [id number] Jul, [facility] [place] [address] [id number] [place] [id number] Jul, [facility] [place] [address] [id number] [place] [id number] Jun, [facility] [place] [facility] [address] [facility] [id number], [place] [address] Jun, [facility] [place] [address] [id number] [place] [id number] May, [facility] [place] [facility] [address] [facility] [id number], [place] [address] May, [facility] [place] [address] [facility] [id number] [place] [id number] May, [facility] [address] [facility] [id number], [place] [address] May, [facility] [place] [address] [facility] [id number] [place] [id number] May, [facility] [place] [facility] [address] [facility] [id number], [place] [address] May, [facility] [place] [address] [facility] [id number][place] [id number] Apr, [facility] [place] [facility] [id number] [address] Apr, [facility] [place] [facility] [address] [facility] [id number], [place] [address] Apr, [facility] [place] [address] [id number][place] [id number] Apr, [facility] [place] [address] [facility] [id number][place] [id number] Apr, [facility] [place] [facility] [address] [facility] [id number], [place] [address] Apr, [facility] [place] [facility] [address] [facility] [id number] [place] [address] Apr, [facility] [place] [address] [id number] [place] [id number] Apr, [facility] [address] [facility] [id number] [place] [address] Apr, [facility] [place] [address] [id number] [place] [id number] Apr, [facility] [place] [address] [id number] [place] [id number] Apr, [facility] [place] [address] [id number] [place] [id number] Mar, [facility] [place] [address] [id number] [place] [id number] Feb, [facility] [place] [address] [id number] [place] [id number] Jan, [facility] [place] [address] [id number] [place] [id number] Dec, [facility] [place] [address] [id number] [place] [id number] Dec, [facility] [place] [address] [id number] [place] [id number] Dec, [facility] [place] [address] [id number] [place] [id number] Dec, [facility] [place] [address] [id number] [place] [id number] Dec, [facility] [place] [address] [id number] [place] [id number] November, [facility] [place] [address] [id number] [place] [id number] November, [facility] [place] [address] [id number] [place] [id number] November, [facility] [address] [facility] [id number] [place] [address] November, [facility] [place] [address] [id number] [id number] November, [facility] [place] [address] [id number] [place] [id number] November, [facility] [place] [address] [id number] [place] [id number] Oct, [facility] [place] [address] [id number] [place] [id number] Oct, [facility] [place] [address] [id number] [place] [id number] Oct, [facility] [place] [address] [id number] [place] [id number] Oct, [facility] [place] [address] [id number] [place] [id number] Oct, [facility] [place] [address] [id number] [place] [id number] Oct, [facility] [place] [address] [id number] [place] [id number] Sep, [facility] [place] [address] [id number] [place] [id number] Aug, [facility] [place] [address] [id number] [place] [id number] Aug, [facility] [place] [address] [id number] [place] [id number] Jul, [facility] [place] [facility] [id number] [address] Jun, [facility] [place] [facility] [id number] [address] Jun, [facility] [place] [facility] [id number] [address] Jun, [facility] [place] [facility] [address] [facility] [id number] [address] Jun, [facility] [place] [facility] [id number] [place] [address] May, [facility] [place] [facility] [id number], [place] [address] May, [facility] [place] [facility] [id number] [address] 25 Apr, 2011 [facility] [address] [id number] [place] [address] 17 Apr, 2011 [facility] [place] [facility] [address] [id number] [place] 10 Apr, 2011 [facility] [place] [facility] [address] [id number] [place] [address] Feb, [facility] [place] [facility] [address] [id number] [place] [address] 15 Aug, 2010 [facility] [place] [facility] [address] [id number] [place] [address] Jul, [facility] [place] [facility] [address] [id number] [place] [address] Jun, [facility] [place] [facility] [address] [id number] [place] [address] May, [facility] [place] [facility] [address] [id number] [place] [address] May, [facility] [place] [facility] [address] [id number] [place] [address] May, [facility] [place] [facility] [address] [facility] [id number] [place] [address] May, [facility] [place] [facility] [address] [id number] [place] [address] May, [facility] [place] [facility] [address] [id number] [place] [address] Aug, [facility] [place] [facility] [address] [id number] [place] [address] 29 Jun, 2009 [facility] [place] [facility] [address] [id number] [place] [address] Jun, [facility] [place] [facility] [address] [id number] [place] [address] Jun, [facility] [address] [id number] [address] May, [facility] [id number], [place] [address] Apr, [facility] [id number], [place] [address] Apr, [facility] [id number] [place] [address] Apr, [facility] [id number], [place] [address] Jan, [facility] [id number], [place] [address] Oct, [facility] [id number], [place] [address] May, [facility] [id number], [place] [address] May, IMMUNIZATIONS No Known Immunizations SOCIAL HISTORY Never Assessed REASON FOR VISIT PA danni Radford PLAN OF CARE VITAL SIGNS MEDICATIONS Unknown [...] Dialysis [facility] 2012 -Dr. Simon now [facility] Medical History Colonoscopy (polyps 2 ) [...]
--- NOTE | 2017-12-22 19:35 | Diagnostic Imaging Report ---
CLINICAL INDICATION: Stroke protocol. Patient is sick for 4 days and has altered mental status. EXAM: Axial CT scan of the brain performed without IV contrast. COMPARISON: Head CT without contrast dated 02/02/2013. FINDINGS: There is no evidence of acute cerebral infarct, intracranial hemorrhage, or gross mass effect. Stable subcentimeter dural-based calcification in the posterior left frontal convexity region near the vertex which may represent a calcified meningioma. This measures roughly 1 cm. The brain parenchymal volume appears appropriate for patient's age. There is normal rodriguez-white matter distinction. There is no significant midline shift or herniation. There is no evidence of hydrocephalus. The basal cisterns are unremarkable. The skull, extracranial soft tissue, and orbits are unremarkable. The paranasal sinuses are unremarkable. Temporal bones show no significant abnormality. IMPRESSION: 1: Unremarkable and stable CT scan of the brain. 2: Stable suspected dural-based calcified meningioma involving the posterior left frontal lobe near the vertex. Dictated by: Dictated on workstation # [id number]
--- OUTSIDE RECORDS SUMMARY | 2017-12-22 19:35 | XMS REPORT ---
Author Author CHELSY VILLAFANA Organization [facility] Address [address] [place] [address] Care Team Providers Care Set Up Mechanic Automatic Line Name Role Phone CHELSY VILLAFANA Unavailable PROBLEMS Type Condition ICD9-CM Code [id number] Code Onset Dates Condition Status SNOMED Code Problem Chronic pain syndrome G89.4 Active 487769168 Problem Type 2 diabetes mellitus with hyperglycemia E11.65 Active 656058252552566 Problem Primary insomnia F51.01 Active 3682706 Problem Bilateral lower extremity edema R60.0 Active 200375148 Problem Anemia in other chronic diseases classified elsewhere D63.8 Active 745507143 Problem Supplemental oxygen dependent Z99.81 Active 528923370552 Problem Right carpal tunnel syndrome G56.01 Active 400628824691460 Problem 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 Active 810497849850239 Problem Paresthesia of right upper extremity R20.2 Active 63818769 Problem Chronic kidney disease, stage 4 (severe) N18.4 Active 549136858 Problem 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 Active 688174318 Problem Psoriasis of scalp L40.9 Active 583105622 Problem Gastroesophageal reflux disease without esophagitis K21.9 Active 053682741 Problem Chronic obstructive pulmonary disease, unspecified COPD type J44.9 Active 96881515 Problem Type 2 diabetes mellitus with other diabetic kidney complication E11.29 Active 898271170 Problem Diabetic 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 Active 78682324 Problem History of DVT (deep vein thrombosis) Z86.718 Active 253708604 Problem FCI current use of anticoagulant Z79.01 Active 550200706 Problem Oxygen desaturation during sleep G47.34 Active 088590659 Problem Essential hypertension I10 Active 48500506 Problem Depression, unspecified depression type F32.9 Active 07468148 Problem Sleep apnea in adult G47.33 Active 62671698 ALLERGIES No Information ENCOUNTERS Encounter Location Date Diagnosis [facility] [address] [id number] [id number] Oct, Bilateral lower extremity edema R60.0 [address] [address] Oct, [address], [place] [address] Sep, Type 2 diabetes mellitus with other diabetic kidney complication E11.29 and Chronic obstructive pulmonary disease, unspecified COPD type J44.9 [address] [address], [place] [address] 0[address] 15 Aug, 2017 Type 2 diabetes mellitus with other diabetic kidney complication E11.29 [place] [address] [place] [address] 67637- 4835 12 Aug, 2017 Gastroesophageal reflux disease without esophagitis K21.9 ; FCI current use of anticoagulant Z79.01 ; Chronic pain syndrome G89.4 ; Essential hypertension I10 and Type 2 diabetes mellitus with other diabetic kidney complication E11.29 [place] [address], [place] [address] 08 Aug, 2017 Chronic pain syndrome G89.4 [place] [address], [place] [address] 9728 Aug, Type 2 diabetes mellitus with other diabetic kidney complication E11.29 [place] [address], [place] [address] 9761 Jul, Diabetic 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 [place] [id number] [address] 44[address] Jul, Primary insomnia F51.01 [place] [address] [place] [address] 86063- 0185 Jul, [place] [address], [place] [address] 6887 Jul, Type 2 diabetes mellitus with other diabetic kidney complication E11.29 and Chronic obstructive pulmonary disease, unspecified COPD type J44.9 [place] [address] [address] 7804 Jul, Type 2 diabetes mellitus with other diabetic kidney complication E11.29 [place] [address] [place] [address] 20301- 4613 Jun, Type 2 diabetes mellitus with other diabetic kidney complication E11.29 [place] [id number] [place] [address] 60963- 9758 Jun, [address] [id number] [place] [address] 37931- 4735 Jun, Chronic obstructive pulmonary disease, unspecified COPD type J44.9 [id number] [place] [address] 21013- 7662 May, Type 2 diabetes mellitus with other diabetic kidney complication E11.29 [id number] [place] [address] 78643- 9706 May, 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 and Essential hypertension I10 [id number] [place] [address] 49523- 5495 May, Anemia in other chronic diseases classified elsewhere D63.8 ; Chronic obstructive pulmonary disease, unspecified COPD type J44.9 ; Oxygen desaturation during sleep G47.34 ; Sleep apnea in adult G47.33 and Supplemental oxygen dependent Z99.81 [address] [place] [address] 65605- 3834 May, Type 2 diabetes mellitus with other diabetic kidney complication E11.29 ; Essential hypertension I10 ; Chronic pain syndrome G89.4 ; BMI 40.0-44.9, adult Z68.41 ; Gastroesophageal reflux disease without esophagitis K21.9 ; 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 ; 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 ; Diabetic 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 ; Edema of both legs R60.0 and Supplemental oxygen dependent Z99.81 [address] [place] [address] 78206- 9169 May, [facility] [id number] [place] [address] 95365- 9721 May, Essential hypertension I10 and Gastroesophageal reflux disease without esophagitis K21.9 [facility] [id number] [place] [address] 16180- 5915 May, [facility] [address] [address]- 5557 May, Type 2 diabetes mellitus with other diabetic kidney complication E11.29 and FCI current use of anticoagulant Z79.01 [place] [id number] [place] [address] 75787- 0003 Apr, Chronic pain syndrome G89.4 and Essential hypertension I10 [place] [address] 29210- 3554 Apr, Type 2 diabetes mellitus with other diabetic kidney complication E11.29 [facility] [id number] [place] [address] 93858- 5502 Apr, Type 2 diabetes mellitus with other diabetic kidney complication E11.29 [facility] [id number] [place] [address] 69235- 9389 Apr, Essential hypertension I10 [facility] [id number] [place] [address] 89285- 0516 Apr, Gastroesophageal reflux disease without esophagitis K21.9 [facility] [id number] [place] [address] 36365- 8476 Apr, Type 2 diabetes mellitus with other diabetic kidney complication E11.29 [facility] [id number] [place] [address] 15445- 5947 Apr, Type 2 diabetes mellitus with other diabetic kidney complication E11.29 and 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.01 [facility] [address] [place] [address] 23491- 3644 Mar, Encounter for immunization Z23 and Preoperative examination Z01.818 [address] [place] [address] 53366- 9484 Mar, [place] [address] [place] [address] 31670- 8496 Mar, Type 2 diabetes mellitus with other diabetic kidney complication E11.29 [place] [id number] [place] [address] 71946- 9860 08 Mar, 2017 Type 2 diabetes mellitus with other diabetic kidney complication E11.29 [place] [id number] [place] [address] 02226- 4946 Mar, Gastroesophageal reflux disease without esophagitis K21.9 [place] [address] [place] [address] 98617- 4531 Mar, Essential hypertension I10 [address] [address] [place] [address] 63755- 0722 Feb, FCI current use of anticoagulant Z79.01 [place] [address] [place] [address] 24691- 7456 Feb, Type 2 diabetes mellitus with other diabetic kidney complication E11.29 [place] [address] [place] [address] 52524- 1068 Feb, Type 2 diabetes mellitus with other diabetic kidney complication E11.29 [place] [address] [place] [address] 36769- 6173 Feb, Type 2 diabetes mellitus with other diabetic kidney complication E11.29 [place] [id number] [place] [address] 60582- 8072 Feb, Gastroesophageal reflux disease without esophagitis K21.9 [facility] [id number] [place] [address] 53617- 2672 Feb, Type 2 diabetes mellitus with other diabetic kidney complication E11.29 [place] [id number] [place] [address] 03909- 8360 Feb, 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 [address], [place] [address] 7659 Jan, 2017 Type 2 diabetes mellitus with other diabetic kidney complication E11.29 [facility] [address], [place] [address] 2546 Jan, Type 2 diabetes mellitus with other diabetic kidney complication E11.29 [facility] [address], [place] [address] 9962 Jan, Chronic pain syndrome G89.4 [facility] [address], [place] [address] 2542 Jan, [facility] [address] [place] [address] 01735- 6157 Jan, [facility] [address] [place] [address] 98490- 9917 Jan, [facility] [address], [place] [address]- 2374 Jan, [facility] [address], [place] [address]- 9098 Jan, Primary insomnia F51.01 ; Type 2 diabetes mellitus with other diabetic kidney complication E11.29 ; Chronic pain syndrome G89.4 and Essential hypertension I10 [facility] [address], [place] [address]- 1607 Jan, Primary insomnia F51.01 [facility] [address], [place] [address]- 9951 Jan, Type 2 diabetes mellitus with other diabetic kidney complication E11.29 [facility] [address], [place] [address]- 2843 Jan, [facility] [address] [address] 8689 Jan, Chronic obstructive pulmonary disease, unspecified COPD type J44.9 [facility] [address], [place] [address]- 9628 Jan, Essential hypertension I10 ; Type 2 diabetes mellitus with other diabetic kidney complication E11.29 ; Chronic obstructive pulmonary disease, unspecified COPD type J44.9 ; Chronic kidney disease, stage 4 (severe) N18.4 ; Right carpal tunnel syndrome G56.01 ; 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 ; FCI (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 and Diabetic 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 [facility] [id number] [place] [address] 33124- 9409 Jan, Gastroesophageal reflux disease without esophagitis K21.9 [facility] [id number] [place] [address] 67991- 0956 Dec, [facility] [id number] [place] [address] 96489- 3112 Dec, [facility] [id number] [place] [address] 03548- 5563 Dec, FCI current use of anticoagulant Z79.01 ; Chronic pain syndrome G89.4 and Essential hypertension I10 [facility] [id number] [place] [address] 87845- 4705 Dec, [facility] [id number] [place] [address] 81090- 0749 Dec, Type 2 diabetes mellitus with other diabetic kidney complication E11.29 [facility] [id number] [place] [address] 01730- 7957 Dec, [facility] [id number] [place] [address] 94362- 6434 Dec, Gastroesophageal reflux disease without esophagitis K21.9 [facility] [id number] [place] [address] 54511- 1782 November, Type 2 diabetes mellitus with other diabetic kidney complication E11.29 [facility] [id number] [place] [address] 64021- 7651 November, [facility] [address] [place] [address]- 2599 November, Type 2 diabetes mellitus with other diabetic kidney complication E11.29 [facility] [address], [place] [address]- 4751 November, [facility] [address], [place] [address]- 6916 November, Type 2 diabetes mellitus with other diabetic kidney complication E11.29 [facility] [address] [address]- 0611 November, [facility] [address] [place] [address] 34104- 7659 Oct, Essential hypertension I10 [facility] [id number] [place] [address] 98934- 5802 Oct, Psoriasis of scalp L40.9 [facility] [address] [place] [address] 93037- 5809 Oct, Essential hypertension I10 and Chronic pain syndrome G89.4 [facility] [address], [place] [address]- 9415 Oct, [facility] [address], [place] [address]- 5560 Sep, Type 2 diabetes mellitus with other diabetic kidney complication E11.29 [facility] [address], [place] [address]- 8804 Sep, [facility] [address], [place] [address]- 6873 Sep, Type 2 diabetes mellitus with other diabetic kidney complication E11.29 [facility] [address], [place] [address]- 1894 Sep, Type 2 diabetes mellitus with other diabetic kidney complication E11.29 [facility] [address], [place] [address]- 0445 Sep, Type 2 diabetes mellitus with other diabetic kidney complication E11.29 ; Chronic kidney disease, stage 4 (severe) N18.4 ; Chronic obstructive pulmonary disease, unspecified COPD type J44.9 ; Iron deficiency anemia due to chronic blood loss D50.0 ; 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 ; Gastroesophageal reflux disease without esophagitis K21.9 ; Essential hypertension I10 ; Primary insomnia F51.01 ; Depression, unspecified depression type F32.9 ; Chronic pain syndrome G89.4 ; Wrist pain, right M25.531 ; Paresthesia of right upper extremity R20.2 and Psoriasis of scalp L40.9 [address] [address] 52625- 2705 Sep, [address] 74540- 9896 Aug, Essential hypertension I10 [address] 66692- 8822 Aug, History of DVT (deep vein thrombosis) Z86.718 [address] [address] 04897- 7896 Aug, [address] [address] 73398- 8519 Jul, [address] [address] 43565- 9657 Jul, [address] [id number] [place] [address] 39585- 4257 Jul, 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 ; Chronic pain syndrome G89.4 and Chronic kidney disease, stage 4 (severe) N18.4 [address] [address] 77556- 2230 Jul, [address] [address] 37049- 0462 Jul, [address] [address] 38462- 9116 Jul, [address] [id number] [address]- 8880 Jul, [address] [place] [address] 38653- 3667 Jul, [id number] [place] [address] 37858- 6258 Jul, Type 2 diabetes mellitus with other diabetic kidney complication E11.29 [address] [id number] [place] [address] 79481- 7474 16 Jul, 2016 History of DVT (deep vein thrombosis) Z86.718 [address] [id number] [place] [address] 67465- 8916 Jun, [address] [id number] [place] [address] 60731- 6374 Jun, History of DVT (deep vein thrombosis) Z86.718 [address] [place] [address] 35826- 9545 15 Jun, 2016 Post traumatic stress disorder (PTSD) F43.10 [address] [place] [address] 44354- 7931 07 Jun, 2016 Type 2 diabetes mellitus with other diabetic kidney complication E11.29 ; Diabetic 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 ; Iron deficiency anemia due to chronic blood loss D50.0 ; Chronic obstructive pulmonary disease, unspecified COPD type J44.9 ; 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 ; History [...] pain M79.641 and Right wrist pain M25.531 [id number] [place] [address]- 5692 May, [facility] [address] [place] [address]- 7518 May, [facility] [id number] [place] [address]- 0871 May, [facility] [address] [place] [address], [place] [address]- 8668 15 May, 2016 [facility] [address] [place] [address]- 3170 May, Anemia in other chronic diseases classified elsewhere D63.8 [facility] [address] [place] [address], [place] [address]- 0235 May, [facility] [address] [place] [address]- 3994 Apr, [facility] [address] [place] [address] 66324- 8853 27 Mar, 2016 Dermatofibroma D23.9 [facility] [address] [place] [address], [place] [address]- 4308 20 Mar, 2016 [facility] [address] [place] [address]- 8626 14 Mar, 2016 Chronic pain syndrome G89.4 [facility] [address] [place] [address] 2542 09 Mar, 2015 [facility] [address], [place] [address]- 2541 07 Mar, 2015 [facility] [address] [place] [address]- 9959 06 Mar, 2016 [facility] [address] [place] [address]- 2544 Feb, [facility] [address], [place] [address]- 2161 Feb, [facility] [address], [place] [address]- 9324 Feb, [address], [place] [address]- 7766 Feb, [facility] [address], [place] [address]- 5563 Feb, [address] [place] [address] 69264- 4906 Feb, [address] [address] [address]- 4296 Feb, Type 2 diabetes mellitus with other diabetic kidney complication E11.29 ; Diabetic 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 ; Iron deficiency anemia due to chronic blood loss D50.0 ; Chronic obstructive pulmonary disease, unspecified COPD type J44.9 ; 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 of 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 ; History of DVT (deep vein thrombosis) Z86.718 ; Chronic pain syndrome G89.4 ; Oxygen desaturation during sleep G47.34 ; Sleep apnea in adult G47.33 ; Gastroesophageal reflux disease without esophagitis K21.9 ; Essential hypertension I10 ; Primary insomnia F51.01 ; Depression, unspecified depression type F32.9 and Renal failure, chronic, stage 4 (severe) N18.4 [place] [address], [place] [address]- 0115 Feb, Skin tags, multiple acquired L91.8 [place] [address], [place] [address]- 5075 Jan, [facility] [address] [address] Jan, Dental examination Z01.20 [place] [address], [place] [address]- 2278 Jan, [place] [address], [place] [address]- 9078 Jan, Type 2 diabetes mellitus with other diabetic kidney complication E11.29 ; Diabetic 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 ; Iron deficiency anemia due to chronic blood loss D50.0 ; Chronic obstructive pulmonary disease, unspecified COPD type J44.9 ; 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 of 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 ; History of DVT (deep vein thrombosis) Z86.718 ; Chronic pain syndrome G89.4 ; Oxygen desaturation during sleep G47.34 ; Sleep apnea in adult G47.33 ; Gastroesophageal reflux disease without esophagitis K21.9 ; Essential hypertension I10 ; Primary insomnia F51.01 ; Depression, unspecified depression type F32.9 ; Skin lesion L98.9 and Renal failure, chronic, stage 4 (severe) N18.4 [facility] [id number] [place] [address] 63703- 8282 Dec, Diabetes type 2, uncontrolled E11.65 [place] [id number] [place] [address] 48481- 3508 Dec, [address] 83663- 8780 Dec, Type 2 diabetes mellitus with other [...] F51.01 and Depression, unspecified depression type F32.9 [facility] [address] [id number] [address] Dec, Dental caries K02.9 [facility] [address] [id number] [address] Dec, [facility] [address] [place] [address] [id number] Dec, Dental examination Z01.20 [facility] [id number] [address] November, Dental examination Z01.20 and Dental caries K02.9 [facility] [address] [id number] [id number] Oct, [facility] [address] [id number] [address] Oct, [facility] [address] [id number] [address] Sep, [facility] [id number] [place] [address] [id number] Sep, [facility] [id number] [place] [id number] Sep, [facility] [id number] [place] [address] [id number] Sep, Other chronic pain 338.29 [facility] [id number] [place] [address] [id number] Aug, Diabetes type 2, uncontrolled E11.65 and Morbid obesity due to excess calories E66.01 [facility] [id number] [id number] Aug, Hair loss L65.9 [facility] [id number] [place] [address] [id number] Aug, [facility] [id number][place] [id number] Jul, [facility] [id number] [place] [address] [id number] Jul, [facility] [id number], [place] [id number] Jun, [facility] [id number][place] [address] Jun, Hair loss L65.9 and Disorder of the skin and subcutaneous tissue, unspecified L98.9 [facility] [id number][place] [id number] May, Type 2 diabetes mellitus with other diabetic kidney complication E11.29 ; Type 2 diabetes mellitus with hyperglycemia E11.65 ; Morbid obesity due to excess calories E66.01 and Essential hypertension I10 [address] [place] [address] [id number] May, Diabetes type 2, uncontrolled E11.65 ; Encounter for immunization Z23 and Morbid obesity due to excess calories E66.01 [facility] [id number] [place] [address] [id number] 04 May, 2015 [facility] [facility] [address] [address] Apr, [place] [id number] [place] [address] [id number] Apr, Hyperglycemia R73.[address] [id number] Apr, [address] [id number] Apr, Depression F32.9 ; Encounter for immunization Z23 ; Hyperglycemia R73.9 and Anemia in other chronic diseases classified elsewhere D63.8 [facility] [id number] [place] [address] [id number] Mar, [address] [place] [id number] [place] [address] [id number] Feb, Positive occult stool blood test 792.1 [address] [id number] [place] [address] [id number] Feb, Depression 311 ; Other chronic pain 338.29 and Diabetes with renal manifestations, type II or unspecified type, not stated as uncontrolled 250.40 [facility] [id number] [place] [address] 86263- 2452 Feb, Occult blood in stools 792.1 [id number] [place] [address] [id number] Feb, Anemia 285.9 ; Occult blood positive stool 792.1 ; Unspecified essential hypertension 401.9 and Other chronic pain 338.[id number] [place] [address] [id number] Feb, [address] [address] [id number] [place] [address] [id number] Feb, Anemia 285.9 [facility] [place] [id number], [place] [id number] Feb, [facility] [place] [id number] [place] [address] [id number] Feb, [facility] [place] [id number], [place] [id number] Feb, Diabetes with renal manifestations, type II or unspecified type, not stated as uncontrolled 250.40 ; Other chronic pain 338.29 ; Unspecified essential hypertension 401.9 ; Anemia 285.9 and Depression 311 [facility] [place] [id number], [place] [id number] Jan, [facility] [place] [id number] [place] [address] [id number] Jan, Anemia 285.9 and Follow up V67.9 [facility] [place] [id number][place] [id number] Jan, [facility] [place] [id number] [place] [address] [id number] Jan, [facility] [place] [id number], [place] [id number] Jan, [facility] [place] [id number] [place] [address] [id number] Dec, [facility] [id number] [place] [address] 71440- 2546 Oct, [facility] [id number] [place] [address] 64825- 1165 Oct, [facility] [id number] [place] [address] 84151 2546 Sep, [facility] [place] [id number], [place] 715959546 Sep, [facility] [id number] [place] [address] 82662- 6497 Sep, [facility] [id number], [place] 425886977 Aug, [facility] [address] [id number], [place] [address]- 6176 Aug, 2014 [facility] [place] [facility] [address] [facility] [id number] [place] [address]- 1510 Aug, [facility] [place] [address] [facility] [id number], [place] 877865734 Aug, [facility] [place] [facility] [address] [place] [address]- 2628 Aug, [facility] [place] [facility] [address] [facility] [id number], [place] [address]- 0[address] Aug, [facility] [place] [address] [facility] [id number] [place] [id number] Aug, [facility] [place] [facility] [id number] [address]- 9996 Aug, [facility] [place] [id number], [place] [id number] Jul, [facility] [place] [facility] [address] [id number] [address]- 7342 Jul, [facility] [place] [facility] [address]00565100[place], [place] [address]- 6085 Jul, [facility] [place] [address] [facility] [id number], [place] [id number] Jul, [facility] [place] [facility] [address]00565100[place], [place] [address]- 7785 Jul, [facility] [place] [address] [facility] [id number], [place] [id number] Jul, [facility] [place] [facility] [address] [facility] [id number] [address]- 6472 Jul, [facility] [place] [address] [id number], [place] [id number] Jun, [facility] [place] [address] [facility] [id number], [place] 350183594 Jun, [facility] [place] [facility] [address] [id number] [address]- 5358 Jun, [facility] [place] [facility] [address] [facility] [id number], [place] [address]- 2703 Jun, [facility] [place] [address] [facility] [id number] [place] [id number] Jun, [facility] [place] [facility] [address] [facility] [id number], [place] [address]- 2076 Jun, [facility] [place] [address] [facility] [id number], [place] 488825975 May, [facility] [place] [facility] [address] [facility] [id number], [place] [address]- 2942 May, [facility] [place] [facility] [address] [facility] [id number] [address]- 9845 May, [facility] [place] [address] [facility] [id number], [place] [id number] Apr, [facility] [place] [facility] [address] [facility] [id number], [place] [address]- 0534 Apr, [facility] [place] [address] [facility] [id number], [place] [id number] Apr, [facility] [place] [address] [facility] [id number], [place] 579656802 Apr, [facility] [place] [facility] [address] [facility] [id number] [address]- 4322 Apr, [facility] [place] [facility] [address] [facility] [id number] [address]- 1345 Apr, [facility] [place] [address] [facility] [id number], [place] 665194157 Mar, [facility] [place] [facility] [address] [facility] [id number] [address]- 3203 Mar, [facility] [place] [address] [facility] [id number], [place] 214648985 Mar, [facility] [place] [facility] [address] [facility] [id number], [place] [address]- 8433 17 Mar, 2014 [facility] [place] [address] [facility] [id number], [place] 314744352 Mar, [facility] [place] [facility] [address] [id number] [place] [address]- 5733 Mar, [facility] [place] [address] [id number] [place] [id number] Mar, [facility] [place] [facility] [address] [facility] [id number] [place] [address]- 5286 Mar, [facility] [place] [address] [id number] [place] [id number] Mar, [facility] [place] [facility] [address] [id number] [place] [address]- 6264 Mar, [facility] [place] [address] [id number] [place] [id number] Feb, [facility] [place] [facility] [address] [facility] [id number] [place] [address]- 9766 Feb, [facility] [place] [address] [facility] [id number] [place] [id number] Jan, [facility] [place] [facility] [address] [facility] [id number], [place] [address]- 6181 Jan, [facility] [place] [address] [facility] [id number], [place] 808780659 Jan, [facility] [place] [facility] [address] [facility] [id number], [place] [address]- 1638 Jan, [facility] [place] [address] [id number] [place] [id number] Jan, [facility] [place] [facility] [address] [facility] [id number], [place] [address]- 3661 Jan, [facility] [place] [facility] [address] [facility] [id number], [place] [address]- 8446 Dec, [facility] [place] [facility] [address] [facility] [id number], [place] [address]- 8414 Dec, [facility] [place] [address] [facility] [id number] [place] [id number] November, [facility] [place] [facility] [address] [facility] [id number] [address]- 2922 November, [facility] [place] [address] [facility] [id number] [place] [id number] November, [facility] [place] [facility] [address] [id number] [place] [address]- 8166 November, [facility] [place] [address] [facility] [id number] [place] [id number] Oct, [facility] [place] [facility] [address] [facility] [id number] [place] [address]- 2487 Oct, [facility] [place] [facility] [address] [facility] [id number] [place] [address]- 9570 Oct, [facility] [place] [facility] [address] [facility] [id number] [place] [address]- 1981 Oct, [facility] [place] [facility] [address] [id number] [place] [address]- 8755 Oct, [facility] [place] [facility] [address] [id number] [place] [address]- 1615 Oct, [facility] [place] [address] [facility] [id number] [place] [id number] Sep, [facility] [place] [address] [facility] [id number] [place] [id number] Sep, [facility] [place] [facility] [address] [facility] [id number] [place] [address]- 0070 Sep, [facility] [place] [facility] [address] [facility] [id number] [address]- 8368 Sep, [facility] [place] [address] [facility] [id number], [place] 947631953 Sep, [facility] [place] [facility] [address] [facility] [id number] [place] [address]- 4505 Sep, [facility] [place] [facility] [address] [facility] [id number] [place] [id number]- 6225 Aug, [facility] [place] [facility] [address] [id number] [place] [address]- 0548 Aug, [facility] [place] [address] [id number] [place] [id number] Aug, [facility] [place] [address] [facility] [id number] [place] [id number] Aug, [facility] [place] [facility] [address] [facility] [id number], [place] [address]- 2546 Aug, [facility] [place] [address] [facility] [id number] [place] [id number] Aug, [facility] [place] [facility] [address] [facility] [id number] [address]- 9406 Aug, [facility] [place] [address] [facility] [id number] [place] [id number] Aug, [facility] [place] [facility] [address]00565100[place] [address]- 9256 Aug, [facility] [place] [id number] [place] [id number] Aug, [facility] [place] [facility] [address]00565100[place], [place] [address]- 3908 Aug, [facility] [place] [address] [facility] [id number] [place] [id number] Aug, [facility] [place] [facility] [address]00565100[place] [address]- 1806 Aug, [facility] [place] [facility] [address] [id number] [address]- 5124 Jul, [facility] [place] [address] [facility] [id number], [place] 704389933 Jun, [facility] [place] [facility] [address] [facility] [id number], [place] [address]- 5627 Jun, [facility] [place] [facility] [address] [facility] [id number], [place] [address]- 1236 Jun, [facility] [place] [facility] [address] [id number] [address]- 9872 Jun, [facility] [place] [address] [facility] [id number], [place] [id number] Jun, [facility] [address] [facility] [id number], [place] [address]- 3736 Jun, [facility] [place] [facility] [address] [facility] [id number], [place] [address] 2546 Jun, [facility] [address] [facility] [id number], [place] 773335344 Jun, [facility] [place] [facility] [address] [facility] [id number] [address]- 5786 Jun, [facility] [place] [facility] [address] [facility] [id number] [address]- 2560 May, [facility] [place] [address] [facility] [id number], [place] [id number] May, [facility] [place] [facility] [address]00565100[place], [place] [address]- 7556 May, [facility] [place] [facility] [address] [id number] [address]- 9760 May, [facility] [place] [facility] [address] [id number] [address]- 2650 May, [facility] [place] [facility] [address] [id number] [address]- 5113 May, [facility] [address] [facility] [id number], [place] [id number] May, [facility] [place] [facility] [address] [facility] [id number], [place] [address]- 1346 May, [facility] [place] [address] [facility] [id number], [place] 016619804 May, [facility] [place] [facility] [address] [facility] [id number], [place] [address]- 2546 May, [facility] [place] [address] [facility] [id number], [place] [id number] Apr, [facility] [place] [facility] [address] [id number] [address]- 1123 Apr, [facility] [address] [id number] [address]- 6333 Apr, [facility] [address] [facility] [id number], [place] 620684416 Apr, [facility] [place] [facility] [address] [id number], [place] [address]- 3445 Apr, [facility] [place] [facility] [address] [id number], [place] [address]- 6090 Apr, [facility] [address] [facility] [id number], [place] 250095902 Apr, [facility] [place] [facility] [address] [id number], [place] [address]- 7860 Apr, [facility] [place] [facility] [address] [facility] [id number], [place] 725000- 0732 Apr, [facility] [place] [facility] [address] [facility] [id number], [place] 750796- 7654 Apr, [facility] [address] [facility] [id number], [place] 500529178 Apr, [facility] [place] [facility] [address] [id number], [place] [address]- 9414 Apr, [facility] [address] [facility] [id number], [place] 430314947 Apr, [facility] [place] [facility] [address] [facility] [id number], [place] [address]- 6629 Apr, [facility] [place] [address] [facility] [id number], [place] 829659675 Apr, [facility] [place] [facility] [address] [facility] [id number], [place] [address]- 9042 Apr, [facility] [place] [facility] [address] [facility] [id number], [place] [address]- 4449 Apr, [facility] [place] [facility] [address] [id number], [place] [address]- 3045 Apr, [facility] [place] [address] [id number] [place] [id number] Apr, [facility] [address] [facility] [id number], [place] [address]- 7510 Mar, [facility] [address] [facility] [id number] [address]- 6529 Mar, [facility] [place] [address] [id number] [place] [id number] Mar, [facility] [place] [address] [id number] [place] [id number] Mar, [facility] [place] [address] [id number] [place] [id number] Mar, [facility] [place] [address] [id number] [place] [id number] Feb, [facility] [place] [address] [id number] [place] [id number] Feb, [facility] [place] [address] [id number] [place] [id number] Feb, [facility] [address] [facility] [id number], [place] [address]- 3311 Feb, [facility] [place] [address] [id number] [place] [id number] Feb, [facility] [place] [address] [id number] [place] [id number] Feb, [facility] [place] [address] [id number] [place] [id number] Feb, [facility] [place] [address] [id number] [place] [id number] Feb, [facility] [place] [address] [id number] [place] 877483769 Feb, [facility] [place] [address] [id number] [place] [id number] Jan, [facility] [place] [address] [id number] [place] [id number] Jan, [facility] [place] [address] [id number] [place] [id number] Jan, [facility] [place] [address] [id number] [place] [id number] Jan, [facility] [place] [address] [id number] [place] [id number] Jan, [facility] [address] [facility] [id number], [place] [address]- 8466 Jan, [facility] [place] [address] [id number] [place] 600626112 Jan, [facility] [place] [address] [id number] [place] [id number] Jan, [facility] [place] [address] [id number] [place] 063406867 Dec, [facility] [place] [address] [id number] [place] [id number] November, [facility] [place] [address] [id number] [place] [id number] November, [facility] [place] [address] [id number] [place] [id number] November, [facility] [place] [address] [id number] [place] [id number] November, [facility] [place] [address] [id number] [place] [id number] November, [facility] [place] [address] [id number] [place] [id number] November, [facility] [place] [address] [id number] [place] [id number] Jul, [facility] [place] [address] [id number] [place] [id number] Jul, [facility] [place] [address] [id number] [place] [id number] Jul, [facility] [place] [address] [id number] [place] [id number] Jun, [facility] [address]00565100[place], [place] [address]- 0236 Jun, [facility] [place] [address] [id number], [place] [id number] May, [facility] [address]00565100[place], [place] [address]- 8192 May, [facility] [place] [address] [id number], [place] 496703064 May, [facility] [place] [facility] [address] [facility] [id number] [address]- 2175 May, [facility] [place] [address] [id number], [place] 084113656 May, [facility] [place] [facility] [address] [facility] [id number], [place] [address]- 0243 May, [facility] [place] [address] [id number], [place] 294744960 Apr, [facility] [place] [facility] [address] [facility] [id number] [place] [address] 26594- 7005 Apr, [facility] [place] [facility] [address] [id number] [address]- 5079 Apr, [facility] [place] [address] [id number], [place] 483794375 Apr, [facility] [place] [address] [id number], [place] 519832383 Apr, [facility] [place] [facility] [address] [facility] [id number], [place] [address]- 6780 Apr, [facility] [place] [facility] [address] [facility] [id number], [place] [address]- 8413 Apr, [facility] [place] [address] [id number], [place] 552935348 Apr, [facility] [place] [facility] [address] [facility] [id number], [place] [address]- 5581 Apr, [facility] [place] [address] [id number], [place] 816667626 Apr, [facility] [place] [address] [id number], [place] [id number] Apr, [facility] [place] [address] [id number], [place] 532969507 Mar, [facility] [place] [address] [id number] [place] 261217226 Feb, [facility] [place] [address] [id number] [place] [id number] Jan, [facility] [place] [address] [id number] [place] [id number] Dec, [facility] [place] [address] [id number] [place] [id number] Dec, [facility] [place] [address] [id number] [place] [id number] Dec, [facility] [place] [address] [id number] [place] [id number] Dec, [facility] [place] [address] [id number] [place] [id number] Dec, [facility] [place] [address] [id number] [place] [id number] November, [facility] [place] [address] [id number] [place] [id number] November, [facility] [place] [address] [id number] [place] [id number] November, [facility] [address] [facility] [id number] [address] November, [facility] [place] [address] [id number] [place] [id number] November, [facility] [place] [address] [id number] [place] [id number] November, [facility] [place] [address] [id number] [place] [id number] Oct, [facility] [place] [address] [id number] [place] [id number] Oct, [facility] [place] [address] [id number] [place] [id number] Oct, [facility] [place] [address] [id number] [place] [id number] Oct, [facility] [place] [address] [id number] [place] [id number] Oct, [facility] [place] [address] [id number] [place] [id number] Oct, [facility] [place] [address] [facility] [id number] [place] [id number] Sep, [facility] [place] [address] [id number] [place] [id number] Aug, [facility] [place] [address] [id number] [place] [id number] Aug, [facility] [place] [address] [facility] [id number] [place] [id number] Jul, [facility] [place] [facility] [address] [facility] [id number] [place] [address] Jun, [facility] [place] [facility] [address] [facility] [id number] [place] [address], [place] [address] Jun, [facility] [place] [facility] [address] [facility] [id number] [place] [address] Jun, [facility] [place] [facility] [id number] [place] [address], [place] [address] Jun, [facility] [place] [facility] [address] [id number] [address] May, [facility] [place] [facility] [id number] [place] [place] [address] May, [facility] [place] [facility] [address] [id number] [address] Apr, [facility] [place] [facility] [id number], [place] [address] Apr, [facility] [place] [facility] [address] [facility] [id number], [place] [address] Apr, [facility] [place] [facility] [address] [facility] [id number], [place] [address] Feb, [facility] [place] [facility] [address] [facility] [id number], [place] [address] Aug, [facility] [place] [facility] [id number], [place] [address] Jul, [facility] [place] [facility] [address] [id number] [place] [address] 30 Jun, 2010 [facility] [place] [facility] [address] [id number] [place] [address] May, [facility] [place] [facility] [address] [id number] [place] [address] May, [facility] [place] [facility] [address] [id number] [place] [address] May, [facility] [place] [facility] [address] [id number] [place] [address] May, [facility] [place] [facility] [address] [id number] [place] [address] May, [facility] [place] [facility] [address] [facility] [id number] [place] [address] 118[address] Aug, [facility] [place] [facility] [address] [id number], [place] [address] Jun, [facility] [place] [facility] [address] [facility] [id number], [place] [address] Jun, [facility] [place] [facility] [address] [facility] [id number], [place] [address] Jun, [facility] [place] [facility] [address] [facility] [id number], [place] [address] May, [facility] [place] [facility] [address] [id number], [place] [address] 28 Apr, 2009 [facility] [place] [facility] [address] [id number], [place] [address] Apr, [facility] [place] [facility] [address] [id number], [place] [address] 15 Apr, 2009 [facility] [place] [facility] [address] [facility] [id number], [place] [address] Jan, [facility] [place] [facility] [address] [id number], [place] [address] Oct, [facility] [address] [facility] [id number] [place] [address] May, [facility] [address] [facility] [id number] [place] [address] May, IMMUNIZATIONS No Known Immunizations SOCIAL HISTORY [...] Dialysis [facility] 2012 -Dr. Simon now [facility] Medical History Colonoscopy (polyps 2 ) [...]
--- OUTSIDE RECORDS SUMMARY | 2017-12-22 19:36 | XMS REPORT ---
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 Active 978619365 Problem 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 Active 916625326478236 Problem Chronic kidney disease, stage 4 (severe) N18.4 Active 407852305 Problem Type 2 diabetes mellitus with hyperglycemia E11.65 Active 646663788865349 Problem Psoriasis of scalp L40.9 Active 946941701 Problem Paresthesia of right upper extremity R20.2 Active 71037540 Problem Diabetic 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 Active 03615584 Problem Gastroesophageal reflux disease without esophagitis K21.9 Active 139539037 Problem Anemia in other chronic diseases classified elsewhere D63.8 Active 463939315 Problem Type 2 diabetes mellitus with other diabetic kidney complication E11.29 Active 118478248 Problem Depression, unspecified depression type F32.9 Active 01215332 Problem History of DVT (deep vein thrombosis) Z86.718 Active 774493834 Problem Chronic obstructive pulmonary disease, unspecified COPD type J44.9 Active 48081901 Problem 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 Active 698094313 Problem Oxygen desaturation during sleep G47.34 Active 608081803 Problem Essential hypertension I10 Active 25579261 ALLERGIES No Information ENCOUNTERS Encounter Location Date Diagnosis [facility] [address] [facility] [id number] [id number] Oct, [facility] [address], [place] [address] Oct, [facility] [id number] [place] [address] 13235- 4106 Oct, [place] [address] [place] [address] 43611- 3577 Sep, Type 2 diabetes mellitus with other diabetic kidney complication E11.29 and Chronic obstructive pulmonary disease, unspecified COPD type J44.9 [place] [id number] [address] 15 Aug, 2017 Type 2 diabetes mellitus with other diabetic kidney complication E11.29 [place] [address] [place] [address] 98413- 8052 12 Aug, 2017 Gastroesophageal reflux disease without esophagitis K21.9 ; [facility] current use of anticoagulant Z79.01 ; Chronic pain syndrome G89.4 ; Essential hypertension I10 and Type 2 diabetes mellitus with other diabetic kidney complication E11.29 [place] [address], [place] [address] 4[address] 08 Aug, 2017 Chronic pain syndrome G89.4 [place] [id number] [place] [address] 43115- 9020 Aug, Type 2 diabetes mellitus with other diabetic kidney complication E11.29 [place] [address], [place] [address] 4479 Jul, Diabetic 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 [place] [address], [place] [address] 8369 Jul, Primary insomnia F51.01 [place] [id number] [place] [address] 71833- 4992 Jul, [place] [address] [place] [address] 96040- 0594 Jul, Type 2 diabetes mellitus with other diabetic kidney complication E11.29 and Chronic obstructive pulmonary disease, unspecified COPD type J44.9 [place] [address], [place] [address] 00[address] Jul, Type 2 diabetes mellitus with other diabetic kidney complication E11.29 [place] [address], [place] [address] 55[address] Jun, Type 2 diabetes mellitus with other diabetic kidney complication E11.29 [place] [id number] [place] [address] 70036- 2439 Jun, [place] [id number] [place] [address] 59727- 5895 Jun, Chronic obstructive pulmonary disease, unspecified COPD type J44.9 [place] [id number] [place] [address] 89425- 2046 May, Type 2 diabetes mellitus with other diabetic kidney complication E11.29 [place] [address] [address] May, oil 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 and Essential hypertension I10 [address] [place] [address] 33704- 5330 May, Anemia in other chronic diseases classified elsewhere D63.8 ; Chronic obstructive pulmonary disease, unspecified COPD type J44.9 ; Oxygen desaturation during sleep G47.34 ; Sleep apnea in adult G47.33 and Supplemental oxygen dependent Z99.81 [address] [place] [address] 80585- 5573 May, Type 2 diabetes mellitus with other diabetic kidney complication E11.29 ; Essential hypertension I10 ; Chronic pain syndrome G89.4 ; BMI 40.0-44.9, adult Z68.41 ; Gastroesophageal reflux disease without esophagitis K21.9 ; oil 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 ; 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 ; Diabetic 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 ; Edema of both legs R60.0 and Supplemental oxygen dependent Z99.81 [place] [id number] [place] [address] 07693- 7736 08 May, 2017 [facility] [id number] [place] [address] 54861- 4741 May, Essential hypertension I10 and Gastroesophageal reflux disease without esophagitis K21.9 [facility] [id number] [place] [address] 64015- 0429 May, [facility] [address] 85541- 0795 May, Type 2 diabetes mellitus with other diabetic kidney complication E11.29 and [facility] current use of anticoagulant Z79.01 [place] [address] 74109- 9409 Apr, Chronic pain syndrome G89.4 and Essential hypertension I10 [place] [id number] [place] [address] 33266- 6192 Apr, Type 2 diabetes mellitus with other diabetic kidney complication E11.29 [facility] [id number] [place] [address] 25578- 7328 Apr, Type 2 diabetes mellitus with other diabetic kidney complication E11.29 [place] [id number] [place] [address] 40445- 7283 Apr, Essential hypertension I10 [facility] [id number] [place] [address] 11852- 5542 Apr, Gastroesophageal reflux disease without esophagitis K21.9 [facility] [id number] [place] [address] 33064- 9964 Apr, Type 2 diabetes mellitus with other diabetic kidney complication E11.29 [facility] [id number] [place] [address] 48744- 2100 Apr, Type 2 diabetes mellitus with other diabetic kidney complication E11.29 and MCC current use of anticoagulant Z79.01 [facility] [id number] [place] [address] 80767- 3246 Mar, Encounter for immunization Z23 and Preoperative examination Z01.818 [facility] [id number] [place] [address] 78391- 2325 Mar, [place] [id number] [place] [address] 71140- 4316 Mar, Type 2 diabetes mellitus with other diabetic kidney complication E11.29 [facility] [id number] [place] [address] 94426- 2546 Mar, Type 2 diabetes mellitus with other diabetic kidney complication E11.29 [place] [id number] [place] [address] 30668- 9102 Mar, Gastroesophageal reflux disease without esophagitis K21.9 [place] [id number] [place] [address] 44118- 7283 Mar, Essential hypertension I10 [place] [address] 80286- 5496 Feb, oil 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 [place] [id number] [place] [address] 71389- 6055 Feb, Type 2 diabetes mellitus with other diabetic kidney complication E11.29 [place] [id number] [place] [address] 09816- 4113 Feb, Type 2 diabetes mellitus with other diabetic kidney complication E11.29 [place] [id number] [place] [address] 89062- 1713 Feb, Type 2 diabetes mellitus with other diabetic kidney complication E11.29 [place] [id number] [place] [address] 58863- 3727 Feb, Gastroesophageal reflux disease without esophagitis K21.9 [facility] [id number] [place] [address] 66413- 2542 Feb, Type 2 diabetes mellitus with other diabetic kidney complication E11.29 [place] [id number] [place] [address] 14882- 0908 01 Aug, 2017 [facility] current use of anticoagulant Z79.01 [facility] [address], [place] [address] 7465 Jan, 2017 Type 2 diabetes mellitus with other diabetic kidney complication E11.29 [facility] [address], [place] [address] 2546 Jan, Type 2 diabetes mellitus with other diabetic kidney complication E11.29 [facility] [id number] [place] [address] 42637- 1486 Jan, Chronic pain syndrome G89.4 [facility] [address], [place] [address]- 7435 Jan, [facility] [id number] [place] [address] 16742- 0229 Jan, [facility] [id number] [place] [address] 50971- 8677 Jan, [facility] [id number] [place] [address] 98820- 6803 Jan, [facility] [address] [place] [address] 36264- 8761 Jan, Primary insomnia F51.01 ; Type 2 diabetes mellitus with other diabetic kidney complication E11.29 ; Chronic pain syndrome G89.4 and Essential hypertension I10 [facility] [address], [place] [address]- 9274 Jan, Primary insomnia F51.01 [facility] [address], [place] [address]- 7291 Jan, Type 2 diabetes mellitus with other diabetic kidney complication E11.29 [facility] [address], [place] [address]- 0459 Jan, [facility] [address], [place] [address]- 4820 Jan, Chronic obstructive pulmonary disease, unspecified COPD type J44.9 [facility] [id number] [place] [address] 60117- 0970 Jan, Essential hypertension I10 ; Type 2 diabetes mellitus with other diabetic kidney complication E11.29 ; Chronic obstructive pulmonary disease, unspecified COPD type J44.9 ; Chronic kidney disease, stage 4 (severe) N18.4 ; Right carpal tunnel syndrome G56.01 ; 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 ; oil heaterman (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 and Diabetic 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 [facility] [id number] [place] [address] 64716- 3485 Jan, Gastroesophageal reflux disease without esophagitis K21.9 [facility] [id number] [place] [address] 61023- 0989 Dec, [facility] [id number] [place] [address] 61135- 5375 Dec, [facility] [id number] [place] [address] 74680- 1347 Dec, MCC current use of anticoagulant Z79.01 ; Chronic pain syndrome G89.4 and Essential hypertension I10 [facility] [id number] [place] [address] 44631- 8952 Dec, [facility] [id number] [place] [address] 19734- 8760 Dec, Type 2 diabetes mellitus with other diabetic kidney complication E11.29 [facility] [id number] [place] [address] 39870- 3227 Dec, [facility] [id number] [place] [address] 39699- 7071 Dec, Gastroesophageal reflux disease without esophagitis K21.9 [facility] [id number] [place] [address] 89594- 7310 November, Type 2 diabetes mellitus with other diabetic kidney complication E11.29 [facility] [id number] [place] [address] 61396- 9767 November, [place] [address], [place] [address]- 8760 November, Type 2 diabetes mellitus with other diabetic kidney complication E11.29 [facility] [address], [place] [address]- 4234 November, [facility] [address], [place] [address]- 5453 November, Type 2 diabetes mellitus with other diabetic kidney complication E11.29 [facility] [address], [place] [address]- 8586 November, [facility] [id number] [place] [address] 27854- 7273 Oct, Essential hypertension I10 [facility] [id number] [place] [address] 73553- 8145 Oct, Psoriasis of scalp L40.9 [facility] [id number] [place] [address] 12500- 2543 Oct, Essential hypertension I10 and Chronic pain syndrome G89.4 [facility] [address] [place] [address] 80721- 1126 Oct, [facility] [address], [place] [address]- 3059 Sep, Type 2 diabetes mellitus with other diabetic kidney complication E11.29 [facility] [address], [place] [address]- 5755 Sep, [facility] [address], [place] [address]- 2542 Sep, Type 2 diabetes mellitus with other diabetic kidney complication E11.29 [facility] [address] 7906 Sep, Type 2 diabetes mellitus with other diabetic kidney complication E11.29 [facility] [address], [place] [address]- 6468 09 Mar, 2017 Type 2 diabetes mellitus with other diabetic kidney complication E11.29 ; Chronic kidney disease, stage 4 (severe) N18.4 ; Chronic obstructive pulmonary disease, unspecified COPD type J44.9 ; Iron deficiency anemia due to chronic blood loss D50.0 ; MCC current use of anticoagulant Z79.01 ; Gastroesophageal reflux disease without esophagitis K21.9 ; Essential hypertension I10 ; Primary insomnia F51.01 ; Depression, unspecified depression type F32.9 ; Chronic pain syndrome G89.4 ; Wrist pain, right M25.531 ; Paresthesia of right upper extremity R20.2 and Psoriasis of scalp L40.9 [place] [id number] [place] [address] 16034- 6951 Sep, [place] [address] 64132- 9476 Aug, Essential hypertension I10 [address] 24755- 1516 Aug, History of DVT (deep vein thrombosis) Z86.718 [place] [id number] [place] [address] 73675- 5999 Aug, [place] [address] 09443- 3138 Jul, [place] [id number] [place] [address] 02692- 0556 Jul, [place] [id number] [place] [address] 55151- 9481 Jul, oil 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 ; Chronic pain syndrome G89.4 and Chronic kidney disease, stage 4 (severe) N18.4 [place] [address] 02985- 1030 Jul, [place] [id number] [place] [address] 88096- 4660 Jul, [place] [address] 31682- 4794 Jul, [place] [address], [place] [address]- 5688 Jul, [place] [id number] [place] [address] 26877- 7136 Jul, [place] [id number] [place] [address] 33870- 6286 Jul, Type 2 diabetes mellitus with other diabetic kidney complication E11.29 [place] [id number] [place] [address] 34791- 4443 16 Jul, 2016 History of DVT (deep vein thrombosis) Z86.718 [place] [id number] [place] [address] 82746- 6467 Jun, [place] [id number] [place] [address] 63597- 2071 Jun, History of DVT (deep vein thrombosis) Z86.718 [place] [address] [place] [address] 84472- 6002 15 Jun, 2016 Post traumatic stress disorder (PTSD) F43.10 [place] [id number] [place] [address] 19721- 6947 07 Jun, 2016 Type 2 diabetes mellitus with other diabetic kidney complication E11.29 ; Diabetic 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 ; Iron deficiency anemia due to chronic blood loss D50.0 ; Chronic obstructive pulmonary disease, unspecified COPD type J44.9 ; oil 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 ; History [...] pain M79.641 and Right wrist pain M25.531 [facility] [address] [place] [id number] [place] [address]- 1302 28 May, 2016 [facility] [id number] [place] [address], [place] [address]- 8886 May, [facility] [address] [place] [place] [address] 2544 May, [facility] [id number] [place] [address], [place] [address]- 6889 15 May, 2016 [facility] [address] [place] [address], [place] [address]- 6860 May, Anemia in other chronic diseases classified elsewhere D63.8 [facility] [address] [place] [address], [place] [address]- 0862 May, [facility] [id number] [place] [address] 86969- 0347 Apr, [facility] [address] [place] [address], [place] [address]- 7020 27 Mar, 2016 Dermatofibroma D23.9 [facility] [id number] [place] [address], [place] [address]- 3649 20 Mar, 2016 [facility] [address], [place] [address]- 2541 14 Mar, 2016 Chronic pain syndrome G89.4 [facility] [address], [place] [address] 2544 09 Mar, 2016 [facility] [address], [place] [address] 2549 07 Mar, 2015 [facility] [id number] [place] [address], [place] [address] 2546 06 Mar, 2016 [facility] [address], [place] [address] 2543 30 Feb, 2016 [facility] [address] [place] [address] 35777- 7111 Feb, [facility] [address], [place] [address]- 2584 Feb, [facility] [id number] [place] [address] 86048- 6040 Feb, [facility] [id number] [place] [address] 14167- 2395 Feb, [facility] [id number] [place] [address] 70800- 4507 Feb, [place] [id number] [place] [address] 06121- 8011 Feb, Type 2 diabetes mellitus with other diabetic kidney complication E11.29 ; Diabetic 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 ; Iron deficiency anemia due to chronic blood loss D50.0 ; Chronic obstructive pulmonary disease, unspecified COPD type J44.9 ; oil 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 ; History of DVT (deep vein thrombosis) Z86.718 ; Chronic pain syndrome G89.4 ; Oxygen desaturation during sleep G47.34 ; Sleep apnea in adult G47.33 ; Gastroesophageal reflux disease without esophagitis K21.9 ; Essential hypertension I10 ; Primary insomnia F51.01 ; Depression, unspecified depression type F32.9 and Renal failure, chronic, stage 4 (severe) N18.4 [facility] [id number] [place] [address] 45130- 7271 Feb, Skin tags, multiple acquired L91.8 [facility] [id number] [place] [address] 13327- 6068 Jan, [facility] [address] [place] [address] [id number] Jan, Dental examination Z01.20 [facility] [id number] [place] [address] 99373- 1240 Jan, [facility] [id number] [place] [address] 53059- 9286 Jan, Type 2 diabetes mellitus with other diabetic kidney complication E11.29 ; Diabetic 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 ; Iron deficiency anemia due to chronic blood loss D50.0 ; Chronic obstructive pulmonary disease, unspecified COPD type J44.9 ; oil 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 ; History [...] 4 (severe) N18.4 [facility] [id number] [place] [address] 62109- 0369 Dec, Diabetes type 2, uncontrolled E11.[address] 04329- 3641 Dec, [address] 19478- 2212 Dec, Type 2 diabetes mellitus with other diabetic kidney complication E11.29 ; Diabetic 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 ; Iron deficiency anemia due to chronic blood loss D50.0 ; Chronic obstructive pulmonary disease, unspecified COPD type J44.9 ; [facility] current use of anticoagulant Z79.01 ; History of DVT (deep vein thrombosis) Z86.718 ; Chronic pain syndrome G89.4 ; Oxygen desaturation during sleep G47.34 ; Sleep apnea in adult G47.33 ; Gastroesophageal reflux disease without esophagitis K21.9 ; Essential hypertension I10 ; Primary insomnia F51.01 and Depression, unspecified depression type F32.9 [facility] [id number] [place] [address] [id number] Dec, Dental caries K02.9 [facility] [id number] [place] [address] [id number] Dec, [facility] [address] [place] [address] [id number] Dec, Dental examination Z01.20 [facility] [address] [id number] [place] [id number] November, Dental examination Z01.20 and Dental caries K02.9 [facility] [id number] [place] [address] [id number] Oct, [facility] [address] [id number] [id number] Oct, [facility] [id number] [place] [address] [id number] Sep, [facility] [id number] [place] [address] [id number] Sep, [facility] [address] [id number] [place] [address] [id number] Sep, [facility] [id number] [place] [address] [id number] Sep, Other chronic pain 338.29 [facility] [id number] [place] [address] [id number] Aug, Diabetes type 2, uncontrolled E11.65 and Morbid obesity due to excess calories E66.01 [facility] [facility] [address] [id number] [id number] Aug, Hair loss L65.9 [facility] [id number] [place] [address] [id number] Aug, [facility] [id number] [place] [address] [id number] Jul, [facility] [id number] [place] [address] [id number] Jul, [facility] [address] [id number] [place] [address] [id number] Jun, [facility] [id number] [place] [address] [id number] Jun, Hair loss L65.9 and Disorder of the skin and subcutaneous tissue, unspecified L98.9 [facility] [address] [id number][place] [id number] May, Type 2 diabetes mellitus with other diabetic kidney complication E11.29 ; Type 2 diabetes mellitus with hyperglycemia E11.65 ; Morbid obesity due to excess calories E66.01 and Essential hypertension I10 [facility] [id number] [place] [address] [id number] May, Diabetes type 2, uncontrolled E11.65 ; Encounter for immunization Z23 and Morbid obesity due to excess calories E66.01 [facility] [id number] [place] [address] [id number] May, [facility] [address] [address] Apr, [facility] [id number] [place] [address] [id number] Apr, Hyperglycemia R73.[address] [id number] Apr, [id number] [place] [address] [id number] Apr, Depression F32.9 ; Encounter for immunization Z23 ; Hyperglycemia R73.9 and Anemia in other chronic diseases classified elsewhere D63.8 [facility] [address] [id number] [id number] Mar, [address] [place] [address] [id number] Feb, Positive occult stool blood test 792.1 [id number] [place] [address] [id number] Feb, Depression 311 ; Other chronic pain 338.29 and Diabetes with renal manifestations, type II or unspecified type, not stated as uncontrolled 250.40 [facility] [address]00565100[place], [place] [address]- [address]152 Feb, Occult blood in stools 792.1 [id number] [place] [address] [id number] Feb, Anemia 285.9 ; Occult blood positive stool 792.1 ; Unspecified essential hypertension 401.9 and Other chronic pain 338.29 [address] [place] [address] [id number] Feb, [id number] [place] [address] [id number] Feb, Anemia 285.9 [facility] [id number], [place] [id number] Feb, [facility] [id number] [place] [address] [id number] Feb, [facility] [id number], [place] [id number] Feb, Diabetes with renal manifestations, type II or unspecified type, not stated as uncontrolled 250.40 ; Other chronic pain 338.29 ; Unspecified essential hypertension 401.9 ; Anemia 285.9 and Depression 311 [facility] [place] [place] [id number], [place] [id number] Jan, [facility] [id number] [place] [address] [id number] Jan, Anemia 285.9 and Follow up V67.9 [facility] [place] [id number], [place] [id number] Jan, [facility] [id number] [place] [address] [id number] Jan, [facility] [place] [place] [id number], [place] [id number] Jan, [facility] [place] [place] [id number] [place] [address] [id number] Dec, [facility] [address]00565100[place], [place] [address] Oct, [facility] [id number] [place] [address] 11866 2546 Oct, [facility] [address]00565100[place], [place] [address]- [address] Sep, [facility] [id number], [place] [id number] Sep, [facility] [id number] [place] [address] 22521 2546 Sep, [facility] [address] [id number], [place] [id number] Aug, [facility] [place] [facility] [address] [facility] [id number], [place] [address] Aug, 2014 [facility] [place] [facility] [address] [facility] [id number], [place] [address]- 2561 Aug, [facility] [address] [facility] [id number], [place] [id number] Aug, [facility] [place] [facility] [address] [facility] [id number] [place] [address]- 8381 Aug, [facility] [place] [facility] [address] [facility] [id number], [place] [address]- 1719 Aug, [facility] [address] [facility] [id number] [place] [id number] Aug, [facility] [place] [facility] [address]00565100[place], [place] [address]- 6245 Aug, [facility] [id number], [place] [id number] Jul, [facility] [place] [facility] [address] [facility] [id number], [place] [address]- 9612 Jul, [facility] [place] [facility] [address]00565100[place], [place] [address]- 0915 Jul, [facility] [address] [facility] [id number], [place] [id number] Jul, [facility] [place] [facility] [address] [facility] [id number], [place] [address]- 4337 Jul, [facility] [address] [facility] [id number], [place] [id number] Jul, [facility] [place] [facility] [address] [facility] [id number], [place] [address]- 2546 Jul, [facility] [address] [facility] [id number], [place] [id number] Jun, [facility] [address] [facility] [id number], [place] [id number] Jun, [facility] [place] [facility] [address] [id number], [place] [address]- 8096 Jun, [facility] [place] [facility] [address] [id number] [place] [address]- 6473 Jun, [facility] [address] [id number] [place] [id number] Jun, [facility] [place] [facility] [address] [facility] [id number], [place] [address]- 4956 Jun, [facility] [address] [id number], [place] [id number] May, [facility] [place] [facility] [address] [facility] [id number] [place] [address]- 3319 May, [facility] [place] [facility] [address] [facility] [id number] [place] [address]- 2360 May, [facility] [address] [facility] [id number], [place] [id number] Apr, [facility] [place] [facility] [address] [facility] [id number], [place] [address]- 9300 Apr, [facility] [address] [id number], [place] [id number] Apr, [facility] [address] [id number], [place] 880723898 Apr, [facility] [place] [facility] [address] [facility] [id number], [place] [address]- 1939 Apr, [facility] [place] [facility] [address] [facility] [id number], [place] [address]- 9228 Apr, [facility] [address] [id number], [place] [id number] Mar, [facility] [place] [facility] [address] [id number], [place] [address]- 4266 Mar, [facility] [address] [facility] [id number], [place] [id number] Mar, [facility] [place] [facility] [address] [facility] [id number], [place] [address]- 2840 Mar, [facility] [address] [id number] [place] [id number] Mar, [facility] [place] [facility] [address] [id number] [place] [address]- 2089 Mar, [facility] [address] [id number] [place] [id number] Mar, [facility] [place] [facility] [address] [facility] [id number] [place] [address]- 4657 Mar, [facility] [address] [id number] [place] [id number] Mar, [facility] [place] [facility] [address] [id number] [place] [address]- 7870 Mar, [facility] [address] [id number] [place] [id number] Feb, [facility] [place] [facility] [address] [facility] [id number], [place]379[place]- 4628 Feb, [facility] [address] [facility] [id number] [place] [id number] Jan, [facility] [place] [facility] [address] [facility] [id number], [place] [address]- 4948 Jan, [facility] [address] [facility] [id number] [place] [id number] Jan, [facility] [place] [facility] [address] [facility] [id number], [place] [address]- 6271 Jan, [facility] [address] [facility] [id number] [place] [id number] Jan, [facility] [place] [facility] [address] [facility] [id number], [place] [address]- 3062 Jan, [facility] [place] [facility] [address] [facility] [id number] [place] [address]- 6158 Dec, [facility] [place] [facility] [address] [facility] [id number] [place] 29985[place]- 3158 Dec, [facility] [address] [id number] [place] [id number] November, [facility] [place] [facility] [address] [facility] [id number] [place] [address]- 0617 November, [facility] [address] [facility] [id number] [place] [id number] November, [facility] [place] [facility] [address] [facility] [id number] [place] [address]- 7360 November, [facility] [address] [facility] [id number] [place] [id number] Oct, [facility] [place] [facility] [address] [facility] [id number] [place] [address]- 5292 Oct, [facility] [place] [facility] [address] [facility] [id number] [place]- 0171 Oct, [facility] [place] [facility] [address] [facility] [id number] [place] [address]- 4247 Oct, [facility] [place] [facility] [address] [id number] [place] [address]- 6153 Oct, [facility] [place] [facility] [address] [facility] [id number] [place] [address]- 9805 Oct, [facility] [address] [facility] [id number] [place] [id number] Sep, [facility] [address] [facility] [id number], [place] [id number] Sep, [facility] [place] [facility] [address] [facility] [id number], [place] [address]- 5025 Sep, [facility] [place] [facility] [address] [facility] [id number], [place] [address]- 2508 Sep, [facility] [address] [facility] [id number] [place] [id number] Sep, [facility] [place] [facility] [address] [facility] [id number] [place]- 4079 Sep, [facility] [place] [facility] [address] [facility] [id number], [place] [address]- 7146 Aug, [facility] [place] [facility] [address] [facility] [id number], [place] [address]- 2636 Aug, [facility] [address] [id number] [place] [id number] Aug, [facility] [address] [facility] [id number] [place] [id number] Aug, [facility] [place] [facility] [address] [facility] [id number] [place] [address]- 1596 Aug, [facility] [address] [facility] [id number] [place] [id number] Aug, [facility] [place] [facility] [address] [facility] [id number] [place] [address]- 1059 Aug, [facility] [address] [facility] [id number] [place] [id number] Aug, [facility] [place] [facility] [address]00565100[place], [place] [address]- 9189 Aug, [facility] [address] [facility] [id number] [place] [id number] Aug, [facility] [place] [facility] [address] [id number], [place] [address]- 3055 Aug, [facility] [address] [facility] [id number] [place] [id number] Aug, [facility] [place] [facility] [address]00565100[place], [place] [address]- 0706 Aug, [facility] [place] [facility] [address]00565100[place], [place] [address]- 0107 Jul, [facility] [address] [facility] [id number], [place] 610477884 Jun, [facility] [place] [facility] [address] [facility] [id number] [place] [address]- 2325 Jun, [facility] [place] [facility] [address] [id number], [place] 188387- 3749 Jun, [facility] [place] [facility] [address] [id number], [place] [address]- 9326 Jun, [facility] [address] [facility] [id number], [place] [id number] Jun, [facility] [place] [facility] [address] [facility] [id number] [place] [address] 2546 Jun, [facility] [place] [facility] [address] [facility] [id number], [place] [address]- 2546 Jun, [facility] [address] [facility] [id number], [place] 180825286 Jun, [facility] [place] [facility] [address] [facility] [id number], [place] [address]- 2546 Jun, [facility] [place] [facility] [address]65100[facility] [place] [place] [address]- 9733 May, [facility] [address] [id number], [place] 110114433 May, [facility] [place] [facility] [address]00565100[place], [place] [address]- 4315 May, [facility] [place] [facility] [address] [id number], [place] [address]- 5014 May, [facility] [place] [facility] [address]00565100[place], [place] [address]- 9209 May, [facility] [place] [facility] [address]00565100[place], [place] [address]- 4506 May, [facility] [address] [facility] [id number], [place] [id number] May, [facility] [place] [facility] [address] [facility] [id number], [place] [address]- 2546 May, [facility] [address] [facility] [id number], [place] [id number] May, [facility] [place] [facility] [address] [id number], [place] [address]- 1766 May, [facility] [address] [facility] [id number], [place] 485761479 Apr, [facility] [place] [facility] [address] [facility] [id number], [place] [address]- 2442 Apr, [facility] [address] [id number], [place] [address]- 4315 Apr, [facility] [address] [facility] [id number], [place] [id number] Apr, [facility] [place] [facility] [address] [facility] [id number], [place] [address]- 1207 Apr, [facility] [place] [facility] [address] [id number], [place] [address]- 9047 Apr, [facility] [address] [facility] [id number], [place] 135065338 Apr, [facility] [place] [facility] [address] [id number], [place] 963[place]- 6529 Apr, [facility] [place] [facility] [address] [id number], [place] [address]- 3971 Apr, [facility] [place] [facility] [address] [facility] [id number], [place] [address]- 0911 Apr, [facility] [address] [facility] [id number], [place] 222734451 Apr, [facility] [place] [facility] [address] [facility] [id number], [place] [address]- 1205 Apr, [facility] [address] [facility] [id number], [place] 699003461 Apr, [facility] [place] [facility] [address] [facility] [id number], [place] [address]- 7463 Apr, [facility] [address] [facility] [id number], [place] 418732956 Apr, [facility] [place] [facility] [address] [facility] [id number], [place] [address]- 2793 Apr, [facility] [place] [facility] [address] [facility] [id number], [place] [address]- 1616 Apr, [facility] [place] [facility] [address] [facility] [id number], [place] [address]- 2717 Apr, [facility] [address] [id number] [place] [id number] Apr, [facility] [address] [facility] [id number], [place] [address]- 1286 Mar, [facility] [address] [facility] [id number] [place] [address]- 3935 Mar, [facility] [address] [id number] [place] 581493610 Mar, [facility] [address] [id number] [place] [id number] Mar, [facility] [address] [id number] [place] 960275917 Mar, [facility] [address] [id number] [place] [id number] Feb, [facility] [address] [id number] [place] 025027148 Feb, [facility] [address] [id number] [place] 351783575 Feb, [facility] [address] [facility] [id number], [place] [address]- 0213 Feb, [facility] [address] [id number] [place] 128865241 Feb, [facility] [address] [id number] [place] 245080117 Feb, [facility] [address] [id number] [place] 350715227 Feb, [facility] [address] [id number] [place] 053853167 Feb, [facility] [address] [id number] [place] 472831057 Feb, [facility] [address] [id number] [place] 890454988 Jan, [facility] [address] [id number] [place] 335164864 Jan, [facility] [address] [id number] [place] 851954514 Jan, [facility] [address] [id number] [place] 823354979 Jan, [facility] [address] [id number] [place] 500621860 Jan, [facility] [address] [id number] [place] [address]- 9686 Jan, [facility] [address] [id number] [place] 792604132 Jan, [facility] [address] [id number] [place] 964683524 Jan, [facility] [address] [id number] [place] 977898887 Dec, [facility] [address] [id number] [place] 515726322 November, [facility] [address] [id number] [place] 171742927 November, [facility] [address] [id number] [place] 590955564 November, [facility] [address] [id number] [place] 791947395 November, [facility] [address] [id number] [place] 234534351 November, [facility] [address] [id number] [place] [id number] November, [facility] [address] [id number] [place] 674689098 Jul, [facility] [address] [id number] [place] [id number] Jul, [facility] [address] [id number] [place] 126608413 Jul, [facility] [address] [id number] [place] 786462785 Jun, [facility] [address] [id number] [place] [address]- 1656 Jun, [facility] [address] [id number], [place] [id number] May, [facility] [place] [facility] [address] [facility] [id number], [place] [address]- 2712 May, [facility] [address] [facility] [id number], [place] 631781148 May, [facility] [place] [facility] [address] [facility] [id number], [place] [address]- 3879 May, [facility] [address] [facility] [id number], [place] [id number] May, [facility] [place] [facility] [address] [facility] [id number], [place] [address]- 4440 May, [facility] [address] [facility] [id number], [place] 138568661 Apr, [facility] [place] [facility] [address]00565100[place], [place] [address]- 1240 Apr, [facility] [place] [facility] [id number] [place] [address] 67[address]- 9821 Apr, [facility] [address] [facility] [id number], [place] [id number] Apr, [facility] [address] [facility] [id number], [place] [id number] Apr, [facility] [place] [facility] [address]00565100[place], [place] [address]- 8810 Apr, [facility] [place] [facility] [address] [facility] [id number], [place] [address]- 8241 Apr, [facility] [address] [id number], [place] 859179590 Apr, [facility] [place] [facility] [address] [facility] [id number], [place] [address] Apr, [facility] [place] [address] [id number] [id number] Apr, [facility] [place] [address] [id number][place] [id number] Apr, [facility] [place] [address] [id number][place] [id number] Mar, [facility] [place] [address] [id number] [place] [id number] Feb, [facility] [place] [address] [id number] [place] [id number] Jan, [facility] [place] [address] [id number] [place] [id number] Dec, [facility] [place] [address] [id number] [place] [id number] Dec, [facility] [place] [address] [id number] [place] [id number] Dec, [facility] [place] [address] [id number] [place] [id number] Dec, [facility] [place] [address] [id number] [place] [id number] Dec, [facility] [place] [address] [id number] [place] [id number] November, [facility] [place] [address] [id number] [place] [id number] November, [facility] [place] [address] [id number] [place] [id number] November, [facility] [id number], [place] [address] November, [facility] [place] [address] [id number] [place] [id number] November, [facility] [place] [address] [id number] [place] [id number] November, [facility] [place] [address] [id number] [place] [id number] Oct, [facility] [place] [address] [id number] [place] [id number] Oct, [facility] [place] [address] [id number] [place] [id number] Oct, [facility] [place] [address] [id number] [place] [id number] Oct, [facility] [place] [address] [id number] [place] [id number] Oct, [facility] [place] [address] [id number] [place] [id number] Oct, [facility] [place] [address] [id number] [place] [id number] Sep, [facility] [place] [address] [id number] [place] [id number] Aug, [facility] [place] [address] [id number] [place] [id number] Aug, [facility] [place] [address] [id number] [place] [id number] Jul, [facility] [place] [facility] [id number] [place] [address] Jun, [facility] [place] [facility] [id number] [place] [address], [place] [address]- [address] Jun, [facility] [place] [facility] [id number] [place] [address]- [address] Jun, [facility] [place] [facility] [id number] [place] [address]- [address] Jun, [facility] [place] [facility] [id number], [place] [address] May, [facility] [place] [facility] [id number] [place] [address] May, [facility] [place] [facility] [id number], [place] [address] Apr, [facility] [place] [facility] [id number], [place] [address] Apr, [facility] [place] [facility] [address] [facility] [id number], [place] [address] Apr, [facility] [place] [facility] [id number] [place] [address]- [address] Feb, [facility] [place] [facility] [address] [facility] [id number], [place] [address] 15 Aug, 2010 [facility] [place] [facility] [id number] [place] [address] Jul, [facility] [place] [facility] [address] [id number] [place] [address] 30 Jun, 2010 [facility] [place] [facility] [address] [id number] [place] [address] May, [facility] [place] [facility] [address] [id number] [place] [address] 25[address] May, [facility] [place] [facility] [address] [id number] [place] [address] May, [facility] [place] [facility] [address] [id number] [place] [address] May, [facility] [place] [facility] [address] [id number] [place] [address]49 May, [facility] [place] [facility] [address] [id number] [place] [address] 2018 Aug, [facility] [place] [facility] [address] [id number] [place] [address] Jun, [facility] [place] [facility] [address] [id number] [place] [address] Jun, [facility] [place] [facility] [address] [id number] [place] [address] Jun, [facility] [place] [facility] [address] [id number], [place] [address] 24 May, 2009 [facility] [place] [facility] [address] [id number], [place] [address] 28 Apr, 2009 [facility] [place] [facility] [address] [id number] [place] [address] 27 Apr, 2009 [facility] [place] [facility] [address] [id number], [place] [address]47 15 Apr, 2009 [facility] [place] [facility] [address] [id number] [place] [id number] Jan, [facility] [place] [facility] [address] [facility] [id number] [place] [address] Oct, [facility] [address] [facility] [id number], [place] [address] May, [facility] [address] [facility] [id number] [place] [address] May, IMMUNIZATIONS No Known Immunizations SOCIAL HISTORY Never Assessed REASON FOR VISIT Refill request PLAN OF CARE VITAL SIGNS MEDICATIONS Medication Instructions Dosage Frequency Start Date End Date Duration Status Gabapentin 600 MG Orally Three times a day take 1 tablet 8h Active Trazodone HCl 150 MG Orally Once a day at bedtime as needed 1 tablet Active Victoza 18 MG/3ML INJECT 1.8 MG SUBCUTANEOUSLY ONCE DAILY... Active Cozaar 50 mg Orally Once a [...] Dialysis Ruthy Reveles 2012 -Dr. Simon now [facility] Medical History Colonoscopy (polyps 2 ) [...]
--- OUTSIDE RECORDS SUMMARY | 2017-12-22 19:38 | XMS REPORT ---
Author Author CHELSY VILLAFANA Organization [facility] Address [address] [place] [address] Care Team Providers Care Fabrication Operator Name Role Phone CHELSY VILLAFANA Unavailable PROBLEMS Type Condition ICD9-CM Code FDZ13-UC Code Onset Dates Condition Status SNOMED Code Problem Chronic pain syndrome G89.4 Active 536713706 Problem Type 2 diabetes mellitus with hyperglycemia E11.65 Active 524094959155076 Problem Primary insomnia F51.01 Active 8111072 Problem Bilateral lower extremity edema R60.0 Active 857821515 Problem Anemia in other chronic diseases classified elsewhere D63.8 Active 584971090 Problem Supplemental oxygen dependent Z99.81 Active 713795862247 Problem Right carpal tunnel syndrome G56.01 Active 156369811298852 Problem 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 Active 214091134385572 Problem Paresthesia of right upper extremity R20.2 Active 77837833 Problem Chronic kidney disease, stage 4 (severe) N18.4 Active 830486885 Problem 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 Active 283199935 Problem Psoriasis of scalp L40.9 Active 008458992 Problem Gastroesophageal reflux disease without esophagitis K21.9 Active 100313499 Problem Chronic obstructive pulmonary disease, unspecified COPD type J44.9 Active 81075955 Problem Type 2 diabetes mellitus with other diabetic kidney complication E11.29 Active 593261819 Problem Diabetic 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 Active 22080329 Problem History of DVT (deep vein thrombosis) Z86.718 Active 339250923 Problem jail current use of anticoagulant Z79.01 Active 324994798 Problem Oxygen desaturation during sleep G47.34 Active 772270300 Problem Essential hypertension I10 Active 79786260 Problem Depression, unspecified depression type F32.9 Active 27707982 Problem Sleep apnea in adult G47.33 Active 66292072 ALLERGIES No Information ENCOUNTERS Encounter Location Date Diagnosis [facility] [id number], [place] [address] November, Chronic pain syndrome G89.4 [facility] [id number] [place] [address] 90055- 6626 November, [facility] [id number] [place] [address] 91264- 7544 November, [facility] [id number] [place] [address] 33312- 6474 November, [facility] [id number] [place] [address] 72403- 5916 Oct, Type 2 diabetes mellitus with other diabetic kidney complication E11.29 [facility] [id number] [place] [address] 41181- 4845 Oct, Primary insomnia F51.01 [facility] [id number] [id number] Oct, Bilateral lower extremity edema R60.0 [facility] [id number] [place] [address] 50806- 6734 Oct, [facility] [id number] [place] [address] 24641- 1470 Sep, Type 2 diabetes mellitus with other diabetic kidney complication E11.29 and Chronic obstructive pulmonary disease, unspecified COPD type J44.9 [facility] [id number] [place] [address] 86162- 4539 15 Aug, 2017 Type 2 diabetes mellitus with other diabetic kidney complication E11.29 [facility] [id number] [place] [address] 04994- 5628 Aug, Gastroesophageal reflux disease without esophagitis K21.9 ; 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 ; Chronic pain syndrome G89.4 ; Essential hypertension I10 and Type 2 diabetes mellitus with other diabetic kidney complication E11.29 [facility] [address], [place] [address] 3296 08 Aug, 2017 Chronic pain syndrome G89.4 [facility] [address], [place] [address]27 Aug, Type 2 diabetes mellitus with other diabetic kidney complication E11.29 [facility] [id number] [place] [address] 74306- 1214 Jul, Diabetic 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 [facility] [id number] [place] [address] 12305- 1505 Jul, Primary insomnia F51.01 [facility] [id number] [place] [address] 97754- 5701 Jul, [facility] [id number] [place] [address] 45740- 2460 Jul, Type 2 diabetes mellitus with other diabetic kidney complication E11.29 and Chronic obstructive pulmonary disease, unspecified COPD type J44.9 [facility] [id number] [place] [address] 77508- 3734 Jul, Type 2 diabetes mellitus with other diabetic kidney complication E11.29 [facility] [id number] [place] [address] 30846- 5854 Jun, Type 2 diabetes mellitus with other diabetic kidney complication E11.29 [facility] [id number] [place] [address] 26489- 5075 Jun, [facility] [id number] [place] [address] 68615- 4059 Jun, Chronic obstructive pulmonary disease, unspecified COPD type J44.9 [facility] [address], [place] [address] 2415 May, Type 2 diabetes mellitus with other diabetic kidney complication E11.29 [facility] [id number] [place] [address] 28967- 5304 May, jail current use of anticoagulant Z79.01 and Essential hypertension I10 [facility] [id number] [place] [address] 65997- 9531 May, Anemia in other chronic diseases classified elsewhere D63.8 ; Chronic obstructive pulmonary disease, unspecified COPD type J44.9 ; Oxygen desaturation during sleep G47.34 ; Sleep apnea in adult G47.33 and Supplemental oxygen dependent Z99.81 [facility] [id number] [place] [address] 17297- 0858 May, Type 2 diabetes mellitus with other diabetic kidney complication E11.29 ; Essential hypertension I10 ; Chronic pain syndrome G89.4 ; BMI 40.0-44.9, adult Z68.41 ; Gastroesophageal reflux disease without esophagitis K21.9 ; jail current use of anticoagulant Z79.01 ; jail 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 ; Diabetic polyneuropathy associated with type 2 diabetes mellitus E11.42 ; Edema of both legs R60.0 and Supplemental oxygen dependent Z99.81 [facility] [id number] [place] [address] 32499- 5505 May, [facility] [id number] [place] [address] 37370- 5486 May, Essential hypertension I10 and Gastroesophageal reflux disease without esophagitis K21.9 [facility] [id number] [place] [address] 40749- 6066 May, [facility] [id number] [place] [address] 83234- 7482 May, Type 2 diabetes mellitus with other diabetic kidney complication E11.29 and jail current use of anticoagulant Z79.01 [facility] [id number] [place] [address] 04677- 7725 Apr, Chronic pain syndrome G89.4 and Essential hypertension I10 [facility] [id number] [place] [address] 21752- 2681 Apr, Type 2 diabetes mellitus with other diabetic kidney complication E11.29 [facility] [id number] [place] [address] 27404- 7605 Apr, Type 2 diabetes mellitus with other diabetic kidney complication E11.29 [facility] [id number] [place] [address] 65766- 9243 06 Apr, 2017 Essential hypertension I10 [facility] [id number] [place] [address] 49005- 1323 Apr, Gastroesophageal reflux disease without esophagitis K21.9 [facility] [id number] [place] [address] 04213- 3725 Apr, Type 2 diabetes mellitus with other diabetic kidney complication E11.29 [facility] [id number] [place] [address] 48139- 3058 Apr, Type 2 diabetes mellitus with other diabetic kidney complication E11.29 and 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 [facility] [id number] [place] [address] 56268- 0856 Mar, Encounter for immunization Z23 and Preoperative examination Z01.818 [facility] [address] 39824- 0109 Mar, [facility] [address] 15730- 5435 Mar, Type 2 diabetes mellitus with other diabetic kidney complication E11.29 [facility] [id number] [place] [address] 26919- 2071 Mar, Type 2 diabetes mellitus with other diabetic kidney complication E11.29 [facility] [id number] [place] [address] 43514- 7303 Mar, Gastroesophageal reflux disease without esophagitis K21.9 [facility] [id number] [place] [address] 89080- 3322 Mar, Essential hypertension I10 [facility] [id number] [place] [address] 63040- 2681 Feb, 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 [facility] [id number] [place] [address] 42349- 8132 Feb, Type 2 diabetes mellitus with other diabetic kidney complication E11.29 [facility] [address], [place] [address] 6951 Feb, Type 2 diabetes mellitus with other diabetic kidney complication E11.29 [facility] [id number] [place] [address] 24382 2546 Feb, Type 2 diabetes mellitus with other diabetic kidney complication E11.29 [facility] [id number] [place] [address] 03898- 6442 Feb, Gastroesophageal reflux disease without esophagitis K21.9 [facility] [id number] [place] [address] 65183- 1869 Feb, Type 2 diabetes mellitus with other diabetic kidney complication E11.29 [facility] [id number] [place] [address] 44710- 4124 Feb, jail current use of anticoagulant Z79.01 [facility] [id number] [place] [address] 37464- 9680 Jan, Type 2 diabetes mellitus with other diabetic kidney complication E11.29 [facility] [id number] [place] [address] 10213- 8776 Jan, Type 2 diabetes mellitus with other diabetic kidney complication E11.29 [facility] [id number] [place] [address] 59703- 4525 Jan, Chronic pain syndrome G89.4 [facility] [address], [place] [address] 2546 Jan, [facility] [address], [place] [address] 2541 Jan, [facility] [id number] [place] [address] 43331 2544 Jan, [facility] [address], [place] [address]- 2541 Jan, [facility] [address], [place] [address]- 8593 Jan, Primary insomnia F51.01 ; Type 2 diabetes mellitus with other diabetic kidney complication E11.29 ; Chronic pain syndrome G89.4 and Essential hypertension I10 [facility] [id number] [place] [address] 75971- 1169 Jan, Primary insomnia F51.01 [facility] [id number] [place] [address] 17341- 0597 Jan, Type 2 diabetes mellitus with other diabetic kidney complication E11.29 [facility] [id number] [place] [address] 93215- 1034 Jan, [facility] [id number] [place] [address] 56779- 4698 Jan, Chronic obstructive pulmonary disease, unspecified COPD type J44.9 [facility] [id number] [place] [address] 37571- 9700 Jan, Essential hypertension I10 ; Type 2 diabetes mellitus with other diabetic kidney complication E11.29 ; Chronic obstructive pulmonary disease, unspecified COPD type J44.9 ; Chronic kidney disease, stage 4 (severe) N18.4 ; Right carpal tunnel syndrome G56.01 ; 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 ; jail (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 and Diabetic polyneuropathy associated with type 2 diabetes mellitus E11.42 [facility] [id number] [place] [address] 19852- 2173 Jan, Gastroesophageal reflux disease without esophagitis K21.9 [facility] [id number] [place] [address] 27867- 9599 Dec, [facility] [id number] [place] [address] 70476- 9678 Dec, [facility] [id number] [place] [address] 61440- 5315 Dec, 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 ; Chronic pain syndrome G89.4 and Essential hypertension I10 [place] [address] 08160- 4099 Dec, [facility] [id number] [place] [address] 87143- 6587 Dec, Type 2 diabetes mellitus with other diabetic kidney complication E11.29 [facility] [id number] [place] [address] 21871- 1241 Dec, [facility] [id number] [place] [address] 42519- 6611 Dec, Gastroesophageal reflux disease without esophagitis K21.9 [facility] [id number] [place] [address] 24929- 8858 November, Type 2 diabetes mellitus with other diabetic kidney complication E11.29 [facility] [id number] [place] [address] 47469- 5526 November, [facility] [id number] [place] [address] 65140- 3479 November, Type 2 diabetes mellitus with other diabetic kidney complication E11.29 [facility] [id number] [place] [address] 01849- 8246 November, [facility] [id number] [place] [address] 52327- 7741 November, Type 2 diabetes mellitus with other diabetic kidney complication E11.29 [facility] [id number] [place] [address] 69169- 5154 November, [facility] [id number] [place] [address] 48123- 0828 Oct, Essential hypertension I10 [facility] [id number] [place] [address] 72273- 0167 Oct, Psoriasis of scalp L40.9 [facility] [id number] [place] [address] 33892- 3190 Oct, Essential hypertension I10 and Chronic pain syndrome G89.4 [facility] [id number] [place] [address] 90567- 7661 Oct, [facility] [address] [address]- 2187 Sep, Type 2 diabetes mellitus with other diabetic kidney complication E11.29 [facility] [address], [place] [address]- 0436 Sep, [facility] [id number] [place] [address] 19354- 4906 Sep, Type 2 diabetes mellitus with other diabetic kidney complication E11.29 [facility] [id number] [place] [address] 80784- 9454 Sep, Type 2 diabetes mellitus with other diabetic kidney complication E11.29 [facility] [id number] [place] [address] 10598- 6498 Sep, Type 2 diabetes mellitus with other diabetic kidney complication E11.29 ; Chronic kidney disease, stage 4 (severe) N18.4 ; Chronic obstructive pulmonary disease, unspecified COPD type J44.9 ; Iron deficiency anemia due to chronic blood loss D50.0 ; 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 ; Gastroesophageal reflux disease without esophagitis K21.9 ; Essential hypertension I10 ; Primary insomnia F51.01 ; Depression, unspecified depression type F32.9 ; Chronic pain syndrome G89.4 ; Wrist pain, right M25.531 ; Paresthesia of right upper extremity R20.2 and Psoriasis of scalp L40.9 [facility] [address], [place] [address]- 6402 Sep, [facility] [address], [place] [address]- 8370 Aug, Essential hypertension I10 [facility] [id number] [place] [address] 83226- 4102 Aug, History of DVT (deep vein thrombosis) Z86.718 [facility] [address], [place] [address]- 0681 Aug, [facility] [id number] [address]- 3296 Jul, [facility] [id number] [place] [address] 00041- 5588 Jul, [facility] [id number] [place] [address] 35701- 3217 Jul, jail current use of anticoagulant Z79.01 ; Chronic pain syndrome G89.4 and Chronic kidney disease, stage 4 (severe) N18.4 [facility] [id number] [place] [address] 97781- 2073 Jul, [facility] [id number] [place] [address] 72404- 9272 Jul, [facility] [id number] [place] [address] 58138- 1074 Jul, [facility] [id number] [place] [address] 16151- 5897 Jul, [facility] [id number] [place] [address] 46789- 5903 Jul, [facility] [id number] [place] [address] 24201- 0835 Jul, Type 2 diabetes mellitus with other diabetic kidney complication E11.29 [facility] [id number] [place] [address] 94664- 3787 Jul, History of DVT (deep vein thrombosis) Z86.718 [facility] [address], [place] [address]- 9387 Jun, [facility] [id number] [place] [address] 64681- 7146 Jun, History of DVT (deep vein thrombosis) Z86.718 [facility] [address], [place] [address]- 4581 Jun, Post traumatic stress disorder (PTSD) F43.10 [facility] [id number] [place] [address] 90885- 7629 07 Jun, 2016 Type 2 diabetes mellitus with other diabetic kidney complication E11.29 ; Diabetic polyneuropathy associated with type 2 diabetes mellitus E11.42 ; Iron deficiency anemia due to chronic blood loss D50.0 ; Chronic obstructive pulmonary disease, unspecified COPD type J44.9 ; 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 ; [...] pain M79.641 and Right wrist pain M25.531 [facility] [id number] [place] [address] 06878- 0442 28 May, 2016 [facility] [id number] [place] [address] 79571- 4663 23 May, 2016 [facility] [id number] [place] [address] 63428- 1217 21 May, 2016 [facility] [id number] [place] [address] 29120- 3525 15 May, 2016 [facility] [id number] [place] [address] 42507- 2369 11 May, 2016 Anemia in other chronic diseases classified elsewhere D63.8 [facility] [id number] [place] [address] 30200- 9099 02 May, 2016 [facility] [address] 54069- 7895 10 Apr, 2016 [facility] [id number] [place] [address] 72678- 9370 27 Mar, 2016 Dermatofibroma D23.9 [facility] [address] 66147- 5987 20 Mar, 2016 [facility] [address], [place] [address]- 8956 14 Mar, 2016 Chronic pain syndrome G89.4 [facility] [address], [place] [address]- 8168 09 Mar, 2016 [facility] [address], [place] [address]- 6493 07 Mar, 2016 [facility] [address], [place] [address]- 7629 Mar, [facility] [address], [place] [address]- 6037 Feb, [facility] [address], [place] [address]- 3408 Feb, [facility] [address], [place] [address]- 8156 Feb, [facility] [address], [place] [address]- 1871 Feb, [facility] [address], [place] [address]- 8087 Feb, [facility] [address], [place] [address]- 6775 Feb, [facility] [address] [address]- 0629 Feb, Type 2 diabetes mellitus with other [...] failure, chronic, stage 4 (severe) N18.4 [facility] [address], [place] [address]- 0353 Feb, Skin tags, multiple acquired L91.8 [facility] [address], [place] [address]- 2984 Jan, [facility] [address] [place] [address] [id number] Jan, Dental examination Z01.20 [facility] [id number] [place] [address] 29094- 1286 Jan, [facility] [id number] [place] [address] 20937- 0662 Jan, Type 2 diabetes mellitus with other [...] Renal failure, chronic, stage 4 (severe) N18.4 [facility] [address], [place] [address]- 4807 Dec, Diabetes type 2, uncontrolled E11.65 [facility] [id number] [place] [address] 26694- 1026 Dec, [facility] [address], [place] [address]- 1764 Dec, Type 2 diabetes mellitus with other diabetic kidney complication E11.29 ; Diabetic polyneuropathy associated with type 2 diabetes mellitus E11.42 ; Iron deficiency anemia due to chronic blood loss D50.0 ; Chronic obstructive pulmonary disease, unspecified COPD type J44.9 ; 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 ; History of DVT (deep vein thrombosis) Z86.718 ; Chronic pain syndrome G89.4 ; Oxygen desaturation during sleep G47.34 ; Sleep apnea in adult G47.33 ; Gastroesophageal reflux disease without esophagitis K21.9 ; Essential hypertension I10 ; Primary insomnia F51.01 and Depression, unspecified depression type F32.9 [facility] [address] [place] [address] [id number] Dec, Dental caries K02.9 [facility] [address] [id number] Dec, [facility] [address] [id number] Dec, Dental examination Z01.20 [facility] [address] [id number] November, Dental examination Z01.20 and Dental caries K02.9 [facility] [address] [id number] Oct, [facility] [address] [place] [address] [id number] Oct, [facility] [address] [id number] Sep, [facility] [address] [place] [address] [id number] Sep, [facility] [address] [id number] Sep, [facility] [address] [id number] Sep, Other chronic pain [address] [facility] [address] [id number] Aug, Diabetes type 2, uncontrolled E11.65 and Morbid obesity due to excess calories E66.01 [facility] [address] [id number] Aug, Hair loss L65.9 [facility] [address] [id number] [id number] Aug, [facility] [id number] [id number] Jul, [facility] [id number] [place] [address] [id number] Jul, [facility] [id number] [place] [address] [id number] Jun, [facility] [address] [place] [id number] [place] [address] [id number] Jun, Hair loss L65.9 and Disorder of the skin and subcutaneous tissue, unspecified L98.9 [place] [id number] [place] [address] [id number] May, Type 2 diabetes mellitus with other diabetic kidney complication E11.29 ; Type 2 diabetes mellitus with hyperglycemia E11.65 ; Morbid obesity due to excess calories E66.01 and Essential hypertension I10 [place] [id number] [place] [address] [id number] May, Diabetes type 2, uncontrolled E11.65 ; Encounter for immunization Z23 and Morbid obesity due to excess calories E66.[id number] [place] [address] [id number] May, [facility] [id number] [address] Apr, [facility] [address]00565100[place] [id number] Apr, Hyperglycemia R73.9 [facility] [id number] [place] [address] [id number] Apr, [facility] [address]00565100[place] [id number] Apr, Depression F32.9 ; Encounter for immunization Z23 ; Hyperglycemia R73.9 and Anemia in other chronic diseases classified elsewhere D63.8 [facility] [address] [id number] [id number] Mar, [facility] [id number] [place] [address] [id number] Feb, Positive occult stool blood test 792.1 [facility] [id number] [id number] Feb, Depression 311 ; Other chronic pain 338.29 and Diabetes with renal manifestations, type II or unspecified type, not stated as uncontrolled 250.40 [facility] [address]00565100[place] [address]22985- 0645 Feb, Occult blood in stools 792.[address] [place] [address] [id number] Feb, Anemia 285.9 ; Occult blood positive stool 792.1 ; Unspecified essential hypertension 401.9 and Other chronic pain 338.29 [facility] [address] [place] [address] [id number] Feb, [place] [id number] [place] [address] [id number] Feb, Anemia 285.9 [address]00565100[place] [id number] Feb, [address] [place] [address] [id number] Feb, [place] [id number] [place] [address] [id number] Feb, Diabetes with renal manifestations, type II or unspecified type, not stated as uncontrolled 250.40 ; Other chronic pain 338.29 ; Unspecified essential hypertension 401.9 ; Anemia 285.9 and Depression 311 [address]00565100[place] [id number] Jan, [address]00565100[place] [id number] Jan, Anemia 285.9 and Follow up V67.9 [place] [id number] [place] [address] [id number] Jan, [address] [place] [address] [id number] Jan, [address]00565100[place] [id number] Jan, [place] [id number] [address] Dec, [facility] [place] [facility] [address] [facility] [id number] [address]- 3558 Oct, [facility] [place] [facility] [address] [facility] [id number], [place] [address]- 3612 Oct, [facility] [place] [facility] [address] [facility] [id number], [place] [address] Sep, [facility] [place] [address] [facility] [id number][place] [address]66010142 Sep, [facility] [place] [facility] [address] [facility] [id number], [place] [address]- 3504 Sep, [facility] [place] [address] [facility] [id number], [place] [id number] Aug, [facility] [place] [facility] [id number], [place] [address]- 3163 Aug, [facility] [place] [facility] [address] [id number], [place] [address]- 5[address] Aug, [facility] [place] [address] [facility] [id number], [place] [id number] Aug, [facility] [place] [facility] [id number], [place] [address]- 95[address] Aug, [facility] [place] [facility] [address] [id number], [place] [address]- 1027 Aug, [facility] [place] [address] [facility] [id number], [place] [id number] Aug, [facility] [place] [facility] [address] [facility] [id number], [place] [address]- 9372 Aug, [facility] [place] [address] [facility] [id number], [place] [id number] Jul, [facility] [place] [facility] [address] [id number], [place] [address]- 8180 Jul, [facility] [place] [facility] [address]00565100[place], [place] [address]- 4[address] Jul, [facility] [place] [address] [id number] [place] [id number] Jul, [facility] [place] [facility] [address] [facility] [id number], [place] [address]- 2076 Jul, [facility] [place] [address] [id number] [place] [id number] Jul, [facility] [place] [facility] [address] [facility] [id number], [place] [address]- 8346 Jul, [facility] [place] [address] [id number] [place] [id number] Jun, [facility] [place] [address] [id number] [place] [id number] Jun, [facility] [place] [facility] [address] [facility] [id number] [address]- 4679 Jun, [facility] [place] [facility] [address]00565100[place], [place] [address]- 4067 Jun, [facility] [place] [address] [id number], [place] [id number] Jun, [facility] [place] [facility] [address] [facility] [id number][place] [address]- 4466 Jun, [facility] [place] [address] [facility] [id number], [place] [id number] May, [facility] [place] [facility] [address] [facility] [id number], [place] [address]- 6226 May, [facility] [place] [facility] [address] [facility] [id number], [place] [address]- 2546 May, [facility] [place] [address] [id number], [place] 017814652 Apr, [facility] [place] [facility] [address] [facility] [id number] [address]- 7746 Apr, [facility] [place] [address] [id number], [place] [id number] Apr, [facility] [place] [address] [id number], [place] 000194836 Apr, [facility] [place] [facility] [address] [facility] [id number] [place] [address]- 9598 Apr, [facility] [place] [facility] [address] [facility] [id number] [address]- 8486 Apr, [facility] [place] [address] [facility] [id number] [place] [id number] Mar, [facility] [place] [facility] [address] [facility] [id number] [address]- 2047 Mar, [facility] [place] [address] [id number] [place] [id number] Mar, [facility] [place] [facility] [address] [facility] [id number] [address]- 0333 Mar, [facility] [place] [address] [facility] [id number] [place] [id number] Mar, [facility] [place] [facility] [address] [facility] [id number], [place] [address]- 3282 Mar, [facility] [place] [address] [id number] [place] [id number] Mar, [facility] [place] [facility] [address] [facility] [id number][place] [address]- 3515 Mar, [facility] [place] [address] [id number], [place] 501845536 Mar, [facility] [place] [facility] [address] [facility] [id number] [address]- 2122 Mar, [facility] [place] [address] [id number], [place] 127006932 Feb, [facility] [place] [facility] [address] [facility] [id number][place] [address]- 8275 Feb, [facility] [place] [address] [id number], [place] [id number] Jan, [facility] [place] [facility] [address] [facility] [id number], [place] [address]- 8193 Jan, [facility] [place] [address] [id number] [place] [id number] Jan, [facility] [place] [facility] [address] [id number] [place] [address]- 0116 Jan, [facility] [place] [address] [id number], [place] 664269096 Jan, [facility] [place] [facility] [address] [facility] [id number] [place] [address]- 4324 Jan, [facility] [place] [facility] [address] [id number] [place] [address]- 5783 Dec, [facility] [place] [facility] [address] [id number] [place] [address]- 7721 Dec, [facility] [place] [address] [facility] [id number], [place] 794751305 November, [facility] [place] [facility] [address] [facility] [id number] [place] [address]- 1606 November, [facility] [place] [address] [facility] [id number], [place] 890915187 November, [facility] [place] [facility] [address] [id number] [place] [address]604 November, [facility] [place] [address] [facility] [id number], [place] 979590000 Oct, [facility] [place] [facility] [address] [facility] [id number] [place] [address]- 1647 Oct, [facility] [place] [facility] [address] [facility] [id number], [place] [address]- 1085 Oct, [facility] [place] [facility] [address] [id number] [place] [address]- 8332 Oct, [facility] [place] [facility] [address] [facility] [id number] [place] [address]- 2456 Oct, [facility] [place] [facility] [address] [id number] [place] [address]- 0526 Oct, [facility] [place] [address] [facility] [id number], [place] 868236576 Sep, [facility] [place] [address] [id number] [place] 899283307 Sep, [facility] [place] [facility] [address] [facility] [id number] [place] [address]- 3129 Sep, [facility] [place] [facility] [address] [facility] [id number] [place] [address]- 6763 Sep, [facility] [place] [address] [id number] [place] 952995339 Sep, [facility] [place] [facility] [address] [facility] [id number] [place] [address]- 5323 Sep, [facility] [place] [facility] [address] [facility] [id number] [place] [address]- 5963 Aug, [facility] [place] [facility] [address] [facility] [id number] [place] [address]- 5070 Aug, [facility] [place] [address] [id number], [place] 948018393 Aug, [facility] [place] [address] [id number], [place] 952381731 Aug, [facility] [place] [facility] [address] [id number], [place] [address]- 2269 Aug, [facility] [place] [address] [id number], [place] 927913888 Aug, [facility] [place] [facility] [address] [id number], [place] [address]- 4516 Aug, [facility] [place] [address] [id number], [place] 828260794 Aug, [facility] [place] [facility] [address] [facility] [id number], [place] [address]- 1808 Aug, [facility] [place] [address] [facility] [id number], [place] 126874409 Aug, [facility] [place] [facility] [address] [facility] [id number] [address]- 8760 Aug, [facility] [place] [address] [facility] [id number], [place] 634112860 Aug, [facility] [address] [facility] [id number][place] [address]- 1406 Aug, [facility] [place] [facility] [address] [facility] [id number][place] [address]- 2546 Jul, [facility] [place] [address] [facility] [id number], [place] 685937302 Jun, [facility] [place] [facility] [address] [facility] [id number] [address]- 5346 Jun, [facility] [place] [facility] [address] [id number], [place] [address]- 7920 Jun, [facility] [place] [facility] [address] [id number], [place] [address]- 0487 Jun, [facility] [place] [id number], [place] [id number] Jun, [facility] [place] [facility] [address] [id number], [place] [address]- 2725 Jun, [facility] [place] [facility] [address] [id number], [place] [address]- 4531 Jun, [facility] [place] [address] [id number], [place] [id number] Jun, [facility] [place] [facility] [address] [id number], [place] [address]- 6296 Jun, [facility] [place] [facility] [address] [facility] [id number], [place] [address]- 4517 May, [facility] [place] [address] [facility] [id number], [place] 849907376 May, [facility] [place] [facility] [address] [facility] [id number], [place] [address]- 2906 May, [facility] [place] [facility] [address] [id number], [place] [address]- 5818 May, [facility] [place] [facility] [address] [id number], [place] [address]- 2546 May, [facility] [address] [facility] [id number], [place] [address]- 3896 May, [facility] [place] [address] [facility] [id number], [place] 825301993 May, [facility] [address] [facility] [id number], [place] [address]- 2546 May, [facility] [place] [address] [facility] [id number], [place] 191519899 May, [facility] [address] [facility] [id number][place] [address]- 0656 May, [facility] [place] [address] [facility] [id number], [place] 255563521 Apr, [facility] [place] [facility] [id number], [place] [address]- 0446 Apr, [facility] [place] [facility] [address] [id number], [place] [address]- 7206 Apr, [facility] [place] [address] [facility] [id number], [place] 275252535 Apr, [facility] [place] [facility] [address] [facility] [id number], [place] [address]- 2492 Apr, [facility] [place] [facility] [address] [facility] [id number], [place] [address]- 7598 Apr, [facility] [place] [address] [facility] [id number], [place] 355319320 Apr, [facility] [place] [facility] [address] [facility] [id number], [place] [address]- 1316 Apr, [facility] [place] [facility] [address] [facility] [id number], [place] [address]- 4437 Apr, [facility] [place] [facility] [address] [facility] [id number], [place] [address]- 2506 Apr, [facility] [place] [address] [facility] [id number], [place] 993649855 Apr, [facility] [place] [facility] [address] [facility] [id number][place] [address]- 3626 Apr, [facility] [place] [address] [id number], [place] 396821197 Apr, [facility] [place] [facility] [address] [facility] [id number], [place] [address]- 0646 Apr, [facility] [place] [address] [id number], [place] 054325171 Apr, [facility] [place] [facility] [address] [facility] [id number], [place] [address]- 8649 Apr, [facility] [place] [facility] [address] [facility] [id number], [place] 395286- 8005 Apr, [facility] [place] [facility] [address] [facility] [id number] [address]- 4110 Apr, [facility] [place] [address] [id number], [place] 012046878 Apr, [facility] [address]00565100[place], [place] [address]- 2490 Mar, [facility] [address]00565100[place], [place] [address]- 7134 Mar, [facility] [place] [address] [id number], [place] 477608813 Mar, [facility] [place] [address] [id number], [place] 621687366 Mar, [facility] [place] [address] [id number], [place] 514321490 Mar, [facility] [place] [address] [id number], [place] 474559237 Feb, [facility] [place] [address] [id number], [place] 419225809 Feb, [facility] [place] [address] [id number], [place] 410847106 Feb, [facility] [place] [facility] [address] [facility] [id number][place] [address]- 1283 Feb, [facility] [place] [address] [id number] [place] 472198333 Feb, [facility] [place] [address] [id number] [place] 641727087 Feb, [facility] [place] [address] [id number] [place] 266872431 Feb, [facility] [place] [address] [id number] [place] 050291477 Feb, [facility] [place] [address] [id number] [place] 368448243 Feb, [facility] [place] [address] [id number] [place] 708661539 Jan, [facility] [place] [address] [id number] [place] 961299841 Jan, [facility] [place] [address] [id number] [place] 363389566 Jan, [facility] [place] [address] [id number] [place] 137785480 Jan, [facility] [place] [address] [id number] [place] 477544070 Jan, [facility] [address] [facility] [id number], [place] [address]- 4996 Jan, [facility] [place] [address] [id number] [place] 056080013 Jan, [facility] [place] [address] [id number] [place] 092858220 Jan, [facility] [place] [address] [id number] [place] 108036075 Dec, [facility] [place] [address] [id number] [place] 570306344 November, [facility] [place] [address] [id number] [place] 264373185 November, [facility] [place] [address] [id number] [place] 110077844 November, [facility] [place] [address] [id number] [place] 563390944 November, [facility] [place] [address] [id number] [place] 209130984 November, [facility] [place] [address] [id number] [place] 956607316 November, [facility] [place] [address] [id number] [place] [id number] Jul, [facility] [place] [address] [id number] [place] 613928003 Jul, [facility] [place] [address] [id number] [place] 504660070 Jul, [facility] [place] [address] [id number] [place] 825601967 Jun, [facility] [address] [facility] [id number], [place] [address]- 3745 Jun, [facility] [place] [address] [id number], [place] 372574719 May, [facility] [address]00565100[place], [place] [address]- 9858 May, [facility] [place] [address] [id number], [place] 074735177 May, [facility] [address] [id number], [place] [address]- 5620 May, [facility] [place] [address] [facility] [id number], [place] 189761877 May, [facility] [address]00565100[place], [place] [address]- 5847 May, [facility] [place] [address] [id number], [place] 454655601 Apr, [facility] [place] [facility] [address] [facility] [id number], [place] [address]- 1825 Apr, [facility] [place] [facility] [address] [facility] [id number], [place] [address]- 1940 Apr, [facility] [place] [address] [id number], [place] 740384904 Apr, [facility] [place] [address] [id number], [place] 447326593 Apr, [facility] [place] [facility] [address] [id number], [place] [address]- 7053 Apr, [facility] [address] [facility] [id number], [place] [address] 2546 Apr, [facility] [place] [address] [id number] [place] [id number] Apr, [facility] [address] [facility] [id number], [place] [address] 2546 Apr, [facility] [place] [address] [id number] [place] 799483091 Apr, [facility] [place] [address] [id number] [place] [id number] Apr, [facility] [place] [address] [id number] [place] 998440488 Mar, [facility] [place] [address] [id number] [place] [id number] Feb, [facility] [place] [address] [id number] [place] 839425182 Jan, [facility] [place] [address] [id number] [place] 450093525 Dec, [facility] [place] [address] [id number] [place] 165046533 Dec, [facility] [place] [address] [id number] [place] [id number] Dec, [facility] [place] [address] [id number] [place] 294150064 Dec, [facility] [place] [address] [id number] [place] 730684109 Dec, [facility] [place] [address] [id number] [place] 312886005 November, [facility] [place] [address] [id number] [place] 891905790 November, [facility] [place] [address] [id number] [place] 240459178 November, [facility] [address] [facility] [id number] [address] November, [facility] [place] [address] [id number] [place] [id number] November, [facility] [place] [address] [id number] [place] [id number] November, [facility] [place] [address] [id number] [place] [id number] Oct, [facility] [place] [address] [id number] [place] [id number] Oct, [facility] [place] [address] [id number] [place] [id number] Oct, [facility] [place] [address] [id number] [place] [id number] Oct, [facility] [place] [address] [id number] [place] [id number] Oct, [facility] [place] [address] [id number] [place] [id number] Oct, [facility] [place] [address] [id number] [place] [id number] Sep, [facility] [place] [address] [id number] [place] [id number] Aug, [facility] [place] [address] [id number] [place] [id number] Aug, [facility] [place] [address] [id number] [place] [id number] Jul, [facility] [id number] [address] Jun, [facility] [address] [id number] [address] Jun, [facility] [id number] [place] [address] Jun, [facility] [id number] [place] [address] Jun, [facility] [id number], [place] [address] May, [facility] [place] [facility] [address] [facility] [id number] [place] [address] 09 May, 2011 [facility] [address] [id number] [place] [address] 25 Apr, 2011 [facility] [place] [facility] [address] [id number] [place] [address] 17 Apr, 2011 [facility] [place] [facility] [address] [id number] [place] [address] Apr, [facility] [place] [facility] [address] [id number] [place] [address] Feb, [facility] [place] [facility] [address] [id number] [place] [address] Aug, [facility] [place] [facility] [address] [id number] [place] [address] Jul, [facility] [place] [facility] [address] [id number] [place] [address] Jun, [facility] [place] [facility] [address] [id number] [place] [address] May, [facility] [place] [facility] [address] [id number] [place] [address] May, [facility] [place] [facility] [address] [facility] [id number] [place] [address] May, [facility] [place] [facility] [address] [id number] [place] [address] May, [facility] [place] [facility] [address] [id number] [place] [address] 254 May, [facility] [place] [facility] [address] [id number] [place] [address] 16 Aug, 2009 [facility] [place] [facility] [address] [id number] [place] [address] 29 Jun, 2009 [facility] [place] [facility] [address] [id number] [place] [address] Jun, [facility] [address] [id number] [address] Jun, [facility] [id number], [place] [address] May, [facility] [id number], [place] [address] Apr, [facility] [id number] [place] [address] Apr, [facility] [id number] [place] [address]- [address] Apr, [facility] [id number] [place] [address]- [address] Jan, [facility] [address] [id number], [place] [address] Oct, [facility] [id number], [place] [address] May, [facility] [id number] [address] May, IMMUNIZATIONS No Known Immunizations SOCIAL HISTORY [...] Medical History Renal Insuf Acute required Dialysis uRthy Reveles 2012 -Dr. Simon now [facility] Medical History Colonoscopy (polyps 2 ) [...]
--- OUTSIDE RECORDS SUMMARY | 2017-12-22 19:39 | XMS REPORT ---
Author Author CHELSY VILLAFANA Organization [facility] Address [address] [place] [address] Care Team Providers Care Faculty Instructor Name Role Phone CHELSY VILLAFANA Unavailable PROBLEMS Type Condition ICD9-CM Code ZXI47-FI Code Onset Dates Condition Status SNOMED Code Problem Chronic pain syndrome G89.4 Active 566264881 Problem Type 2 diabetes mellitus with hyperglycemia E11.65 Active 164355620261371 Problem Primary insomnia F51.01 Active 1708916 Problem Bilateral lower extremity edema R60.0 Active 424716050 Problem Anemia in other chronic diseases classified elsewhere D63.8 Active 133819758 Problem Supplemental oxygen dependent Z99.81 Active 073274184821 Problem Right carpal tunnel syndrome G56.01 Active 927464638633729 Problem 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 Active 184692926209582 Problem Paresthesia of right upper extremity R20.2 Active 58517605 Problem Chronic kidney disease, stage 4 (severe) N18.4 Active 603932968 Problem 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 Active 298677692 Problem Psoriasis of scalp L40.9 Active 914601604 Problem Gastroesophageal reflux disease without esophagitis K21.9 Active 020303406 Problem Chronic obstructive pulmonary disease, unspecified COPD type J44.9 Active 42202607 Problem Type 2 diabetes mellitus with other diabetic kidney complication E11.29 Active 541135248 Problem Diabetic polyneuropathy associated with type 2 diabetes mellitus E11.42 Active 27002803 Problem History of DVT (deep vein thrombosis) Z86.718 Active 361729751 Problem retirement current use of anticoagulant Z79.01 Active 157616282 Problem Oxygen desaturation during sleep G47.34 Active 699466396 Problem Essential hypertension I10 Active 01644003 Problem Depression, unspecified depression type F32.9 Active 26080842 Problem Sleep apnea in adult G47.33 Active 60844138 ALLERGIES No Information ENCOUNTERS Encounter Location Date Diagnosis [facility] [address] [address] November, [facility] [id number] [place] [address] 76067- 0010 Oct, Type 2 diabetes mellitus with other diabetic kidney complication E11.29 [place] [address] [place] [address] 78445- 0516 Oct, Primary insomnia F51.01 [place] [id number] [id number] Oct, Bilateral lower extremity edema R60.0 [place] [id number] [place] [address] 66171- 0435 Oct, [place] [id number] [place] [address] 90819- 3921 Sep, Type 2 diabetes mellitus with other diabetic kidney complication E11.29 and Chronic obstructive pulmonary disease, unspecified COPD type J44.9 [place] [address] [place] [address] 54132- 7316 Aug, Type 2 diabetes mellitus with other diabetic kidney complication E11.29 [place] [id number] [place] [address] 32120- 3418 Aug, Gastroesophageal reflux disease without esophagitis K21.9 ; retirement current use of anticoagulant Z79.01 ; Chronic pain syndrome G89.4 ; Essential hypertension I10 and Type 2 diabetes mellitus with other diabetic kidney complication E11.29 [place] [address] [address] 08 Aug, 2017 Chronic pain syndrome G89.4 [place] [id number] [place] [address] 25817- 3567 Aug, Type 2 diabetes mellitus with other diabetic kidney complication E11.29 [place] [address] [place] [address] 11888- 6384 Jul, Diabetic polyneuropathy associated with type 2 diabetes mellitus E11.42 [place] [id number] [address] 1242 Jul, Primary insomnia F51.01 [place] [id number] [place] [address] 03285- 8518 Jul, [facility] [id number] [place] [address] 14058- 8829 Jul, Type 2 diabetes mellitus with other diabetic kidney complication E11.29 and Chronic obstructive pulmonary disease, unspecified COPD type J44.9 [facility] [id number] [place] [address] 85488- 2110 Jul, Type 2 diabetes mellitus with other diabetic kidney complication E11.29 [place] [id number] [place] [address] 30219- 7960 Jun, Type 2 diabetes mellitus with other diabetic kidney complication E11.29 [place] [id number] [place] [address] 11245- 8260 Jun, [place] [id number] [place] [address] 63329- 2394 Jun, Chronic obstructive pulmonary disease, unspecified COPD type J44.9 [place] [id number] [place] [address] 04027- 7589 May, Type 2 diabetes mellitus with other diabetic kidney complication E11.29 [place] [address] [place] [address] 91373- 8691 May, retirement current use of anticoagulant Z79.01 and Essential hypertension I10 [place] [id number] [place] [address] 34736- 7102 May, Anemia in other chronic diseases classified elsewhere D63.8 ; Chronic obstructive pulmonary disease, unspecified COPD type J44.9 ; Oxygen desaturation during sleep G47.34 ; Sleep apnea in adult G47.33 and Supplemental oxygen dependent Z99.81 [place] [address] [address] 7928 May, Type 2 diabetes mellitus with other diabetic kidney complication E11.29 ; Essential hypertension I10 ; Chronic pain syndrome G89.4 ; BMI 40.0-44.9, adult Z68.41 ; Gastroesophageal reflux disease without esophagitis K21.9 ; 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 ; 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 ; Diabetic polyneuropathy associated with type 2 diabetes mellitus E11.42 ; Edema of both legs R60.0 and Supplemental oxygen dependent Z99.81 [place] [id number] [place] [address] 84250- 8722 May, [place] [id number] [place] [address] 12210- 1312 May, Essential hypertension I10 and Gastroesophageal reflux disease without esophagitis K21.9 [place] [id number] [place] [address] 26531- 4479 May, [place] [address] 71086- 2912 May, Type 2 diabetes mellitus with other diabetic kidney complication E11.29 and retirement current use of anticoagulant Z79.01 [place] [id number] [place] [address] 17602- 1798 Apr, Chronic pain syndrome G89.4 and Essential hypertension I10 [place] [id number] [place] [address] 29964- 7198 Apr, Type 2 diabetes mellitus with other diabetic kidney complication E11.29 [place] [id number] [place] [address] 29393- 2513 Apr, Type 2 diabetes mellitus with other diabetic kidney complication E11.29 [place] [id number] [place] [address] 66356- 5567 Apr, Essential hypertension I10 [place] [id number] [place] [address] 11929- 8328 Apr, Gastroesophageal reflux disease without esophagitis K21.9 [place] [id number] [place] [address] 33940- 8127 Apr, Type 2 diabetes mellitus with other diabetic kidney complication E11.29 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 [id number] [place] [address] 86374- 7139 Mar, Encounter for immunization Z23 and Preoperative examination Z01.818 [facility] [address] 51042- 4260 Mar, [place] [address] 42408- 5580 Mar, Type 2 diabetes mellitus with other diabetic kidney complication E11.29 [place] [address] 18477- 1810 Mar, Type 2 diabetes mellitus with other diabetic kidney complication E11.29 [place] [id number] [place] [address] 70972- 9197 Mar, Gastroesophageal reflux disease without esophagitis K21.9 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 [id number] [place] [address] 94286- 8224 Feb, Type 2 diabetes mellitus with other diabetic kidney complication E11.29 [facility] [id number] [place] [address] 43120- 3170 Feb, Type 2 diabetes mellitus with other diabetic kidney complication E11.29 [facility] [id number] [place] [address] 02919- 1505 Feb, Type 2 diabetes mellitus with other diabetic kidney complication E11.29 [facility] [id number] [place] [address] 37729- 0682 Feb, Gastroesophageal reflux disease without esophagitis K21.9 [facility] [id number] [place] [address] 22935- 8369 Feb, Type 2 diabetes mellitus with other diabetic kidney complication E11.29 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 [id number] [place] [address] 33370- 5553 Jan, Type 2 diabetes mellitus with other diabetic kidney complication E11.29 [facility] [id number] [place] [address] 34175- 2402 Jan, Type 2 diabetes mellitus with other diabetic kidney complication E11.29 [facility] [id number] [place] [address] 10819- 1119 Jan, Chronic pain syndrome G89.4 [facility] [id number] [place] [address] 01028- 8405 Jan, [facility] [id number] [place] [address] 68779- 2088 Jan, [facility] [address] [place] [address] 31844- 2847 Jan, [facility] [address] [place] [address] 19975- 3310 Jan, [facility] [id number] [place] [address] 15507- 0706 Jan, Primary insomnia F51.01 ; Type 2 diabetes mellitus with other diabetic kidney complication E11.29 ; Chronic pain syndrome G89.4 and Essential hypertension I10 [facility] [address] [place] [address] 26792- 9091 Jan, Primary insomnia F51.01 [facility] [address] [place] [address] 99720- 0830 Jan, Type 2 diabetes mellitus with other diabetic kidney complication E11.29 [facility] [address] [address]00 Jan, [facility] [id number] [place] [address] 53488- 8553 Jan, Chronic obstructive pulmonary disease, unspecified COPD type J44.9 [facility] [address] [place] [address] 50509- 3361 Jan, Essential hypertension I10 ; Type 2 diabetes mellitus with other diabetic kidney complication E11.29 ; Chronic obstructive pulmonary disease, unspecified COPD type J44.9 ; Chronic kidney disease, stage 4 (severe) N18.4 ; Right carpal tunnel syndrome G56.01 ; 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 ; retirement (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 and Diabetic polyneuropathy associated with type 2 diabetes mellitus E11.42 [place] [id number] [place] [address] 80355- 5698 Jan, Gastroesophageal reflux disease without esophagitis K21.9 [facility] [id number] [place] [address] 42602- 2772 Dec, [place] [id number] [place] [address] 65617- 7951 Dec, 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 [address] [place] [address] 44119- 0548 Dec, [facility] [id number] [place] [address] 88865- 1101 Dec, Type 2 diabetes mellitus with other diabetic kidney complication E11.29 [facility] [id number] [place] [address] 03830- 3501 Dec, [facility] [id number] [place] [address] 99311- 4416 Dec, Gastroesophageal reflux disease without esophagitis K21.9 [facility] [id number] [place] [address] 12995- 8955 November, Type 2 diabetes mellitus with other diabetic kidney complication E11.29 [facility] [id number] [place] [address] 45932- 7859 November, [facility] [id number] [place] [address] 64337- 4348 November, Type 2 diabetes mellitus with other diabetic kidney complication E11.29 [facility] [id number] [place] [address] 09416- 1552 November, [facility] [id number] [place] [address] 16736- 5937 November, Type 2 diabetes mellitus with other diabetic kidney complication E11.29 [facility] [id number] [place] [address] 28047- 4899 November, [facility] [id number] [place] [address] 40329- 9082 Oct, Essential hypertension I10 [facility] [id number] [place] [address] 20657- 8497 Oct, Psoriasis of scalp L40.9 [facility] [id number] [place] [address] 01121- 1450 Oct, Essential hypertension I10 and Chronic pain syndrome G89.4 [facility] [id number] [place] [address] 09630- 1877 Oct, [facility] [id number] [place] [address] 48824- 2090 Sep, Type 2 diabetes mellitus with other diabetic kidney complication E11.29 [facility] [id number] [place] [address] 76484- 5535 Sep, [facility] [id number] [place] [address] 63080- 9259 Sep, Type 2 diabetes mellitus with other diabetic kidney complication E11.29 [place] [id number] [place] [address] 11515- 2516 Sep, Type 2 diabetes mellitus with other diabetic kidney complication E11.29 [place] [id number] [place] [address] 57922- 5961 09 Sep, 2016 Type 2 diabetes mellitus with other diabetic kidney complication E11.29 ; Chronic kidney disease, stage 4 (severe) N18.4 ; Chronic obstructive pulmonary disease, unspecified COPD type J44.9 ; Iron deficiency anemia due to chronic blood loss D50.0 ; 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 ; Gastroesophageal reflux disease without esophagitis K21.9 ; Essential hypertension I10 ; Primary insomnia F51.01 ; Depression, unspecified depression type F32.9 ; Chronic pain syndrome G89.4 ; Wrist pain, right M25.531 ; Paresthesia of right upper extremity R20.2 and Psoriasis of scalp L40.9 [place] [id number] [place] [address] 76540- 2108 Sep, [place] [id number] [place] [address] 62388- 9353 Aug, Essential hypertension I10 [place] [id number] [place] [address] 40381- 9554 Aug, History of DVT (deep vein thrombosis) Z86.718 [place] [id number] [place] [address] 86399- 3439 Aug, [place] [id number] [place] [address] 81498- 6367 Jul, [place] [id number] [place] [address] 16209- 0503 Jul, [place] [id number] [place] [address] 31679- 5965 Jul, 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 ; Chronic pain syndrome G89.4 and Chronic kidney disease, stage 4 (severe) N18.4 [place] [address] [address]- 4891 Jul, [place] [address] [address]- 3654 Jul, [place] [address] [address]- 0155 Jul, [place] [id number] [place] [address] 21266- 3659 Jul, [place] [address] [address]- 6588 Jul, [place] [address] [place] [address] 30756- 5590 Jul, Type 2 diabetes mellitus with other diabetic kidney complication E11.29 [place] [address] [address]- 8368 Jul, History of DVT (deep vein thrombosis) Z86.718 [place] [address] [address]- 4778 Jun, [place] [address] [place] [address] 21435- 6049 Jun, History of DVT (deep vein thrombosis) Z86.718 [place] [address] [address]- 0955 15 Jun, 2016 Post traumatic stress disorder (PTSD) F43.10 [place] [address] [address]- 1981 07 Jun, 2016 Type 2 diabetes mellitus with other diabetic kidney complication E11.29 ; Diabetic polyneuropathy associated with type 2 diabetes mellitus E11.42 ; Iron deficiency anemia due to chronic blood loss D50.0 ; Chronic obstructive pulmonary disease, unspecified COPD type J44.9 ; 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 [address] 79022- 5434 28 May, 2016 [facility] [address] 48371- 4071 23 May, 2016 [place] [id number] [place] [address] 33945- 1883 21 May, 2016 [place] [address] 52228- 0214 15 May, 2016 [place] [address] 90345- 8654 11 May, 2016 Anemia in other chronic diseases classified elsewhere D63.8 [place] [address] 24230- 5570 02 May, 2016 [facility] [id number] [place] [address] 47823- 9703 10 Apr, 2016 [facility] [id number] [place] [address] 26901- 0132 27 Mar, [address] [facility] [id number] [place] [address] 85955- 1905 20 Mar, 2016 [facility] [address] 60683- 5025 14 Mar, 2016 Chronic pain syndrome G89.4 [facility] [id number] [place] [address] 55525- 9769 09 Mar, 2016 [facility] [address] 39148- 0768 Mar, [facility] [address] [address]- 4780 Mar, [facility] [address] [place] [address] 46763- 0899 Feb, [facility] [address] [address]- 6009 Feb, [facility] [id number] [place] [address] 64361- 1337 Feb, [facility] [id number] [place] [address] 54287- 5212 Feb, [facility] [id number] [place] [address] 90663- 7208 Feb, [facility] [id number] [place] [address] 39990- 1643 Feb, [facility] [id number] [place] [address] 93292- 8416 Feb, Type 2 diabetes mellitus with other diabetic kidney complication E11.29 ; Diabetic polyneuropathy associated with type 2 diabetes mellitus E11.42 ; Iron deficiency anemia due to chronic blood loss D50.0 ; Chronic obstructive pulmonary disease, unspecified COPD type J44.9 ; retirement current use of anticoagulant Z79.01 ; History of DVT (deep vein thrombosis) Z86.718 ; Chronic pain syndrome G89.4 ; Oxygen desaturation during sleep G47.34 ; Sleep apnea in adult G47.33 ; Gastroesophageal reflux disease without esophagitis K21.9 ; Essential hypertension I10 ; Primary insomnia F51.01 ; Depression, unspecified depression type F32.9 and Renal failure, chronic, stage 4 (severe) N18.4 [facility] [address] [place] [address] 49893- 0944 Feb, Skin tags, multiple acquired L91.8 [facility] [address] [address]- 4157 Jan, [place] [address] [facility] [id number] [id number] Jan, Dental examination Z01.20 [place] [address] [address]- 6710 Jan, [place] [address] [id number] [address]- 0201 Jan, Type 2 diabetes mellitus with other diabetic kidney complication E11.29 ; Diabetic polyneuropathy associated with type 2 diabetes mellitus E11.42 ; Iron deficiency anemia due to chronic blood loss D50.0 ; Chronic obstructive pulmonary disease, unspecified COPD type J44.9 ; retirement current use of anticoagulant Z79.01 ; History of DVT (deep vein thrombosis) Z86.718 ; Chronic pain syndrome G89.4 ; Oxygen desaturation during sleep G47.34 ; Sleep apnea in adult G47.33 ; Gastroesophageal reflux disease without esophagitis K21.9 ; Essential hypertension I10 ; Primary insomnia F51.01 ; Depression, unspecified depression type F32.9 ; Skin lesion L98.9 and Renal failure, chronic, stage 4 (severe) N18.4 [place] [address] [address]- 0395 Dec, Diabetes type 2, uncontrolled E11.65 [place] [address] [address]- 6334 Dec, [address] [address]- 9241 Dec, Type 2 diabetes mellitus with other diabetic kidney complication E11.29 ; Diabetic polyneuropathy associated with type 2 diabetes mellitus E11.42 ; Iron deficiency anemia due to chronic blood loss D50.0 ; Chronic obstructive pulmonary disease, unspecified COPD type J44.9 ; 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 ; History of DVT (deep vein thrombosis) Z86.718 ; Chronic pain syndrome G89.4 ; Oxygen desaturation during sleep G47.34 ; Sleep apnea in adult G47.33 ; Gastroesophageal reflux disease without esophagitis K21.9 ; Essential hypertension I10 ; Primary insomnia F51.01 and Depression, unspecified depression type F32.9 [facility] [address] [id number] [id number] Dec, Dental caries K02.9 [facility] [id number] [place] [address] [id number] Dec, [facility] [address] [id number] [id number] Dec, Dental examination Z01.20 [facility] [id number] [place] [address] [phone] November, Dental examination Z01.20 and Dental caries K02.9 [facility] [id number] [place] [address] [id number] Oct, [facility] [address] [id number] [place] [address] [id number] Oct, [facility] [id number] [place] [address] [id number] Sep, [facility] [id number] [place] [address] [id number] Sep, [facility] [address] [id number] [place] [address] [id number] Sep, [facility] [address] [id number] [place] [address] [id number] Sep, Other chronic pain 338.29 [facility] [id number] [place] [address] [id number] Aug, Diabetes type 2, uncontrolled E11.65 and Morbid obesity due to excess calories E66.01 [facility] [id number] [place] [address] [id number] Aug, Hair loss L65.9 [facility] [address] [id number] [place] [place] [address] [id number] Aug, [facility] [id number] [place] [address] [id number] Jul, [facility] [address] [id number] [place] [address] [id number] Jul, [facility] [address] [id number] [place] [address] [id number] Jun, [place] [id number] [place] [address] [id number] Jun, Hair loss L65.9 and Disorder of the skin and subcutaneous tissue, unspecified L98.9 [place] [id number] [place] [address] [id number] May, Type 2 diabetes mellitus with other diabetic kidney complication E11.29 ; Type 2 diabetes mellitus with hyperglycemia E11.65 ; Morbid obesity due to excess calories E66.01 and Essential hypertension I10 [place] [id number] [place] [address] [id number] May, Diabetes type 2, uncontrolled E11.65 ; Encounter for immunization Z23 and Morbid obesity due to excess calories E66.01 [place] [id number] [place] [address] [id number] May, [facility] [address] [address] Apr, [place] [id number] [place] [address] [id number] Apr, Hyperglycemia R73.9 [place] [id number] [place] [address] [id number] Apr, [place] [id number] [place] [address] [id number] Apr, Depression F32.9 ; Encounter for immunization Z23 ; Hyperglycemia R73.9 and Anemia in other chronic diseases classified elsewhere D63.8 [facility] [address] [id number] Mar, [id number] [place] [address] [id number] Feb, Positive occult stool blood test 792.[address] [id number] Feb, Depression 311 ; Other chronic pain 338.29 and Diabetes with renal manifestations, type II or unspecified type, not stated as uncontrolled 250.40 [facility] [id number] [place] [address]- 4667 Feb, Occult blood in stools 792.1 [facility] [id number] [place] [id number] Feb, Anemia 285.9 ; Occult blood positive stool 792.1 ; Unspecified essential hypertension 401.9 and Other chronic pain 338.29 [facility] [id number] [place] [address] [id number] Feb, [facility] [id number] [place] [address] [id number] Feb, Anemia 285.9 [facility] [id number] [place] [address] [id number] Feb, [facility] [id number] [place] [address] [id number] Feb, [facility] [id number] [place] [address] [id number] Feb, Diabetes with renal manifestations, type II or unspecified type, not stated as uncontrolled 250.40 ; Other chronic pain 338.29 ; Unspecified essential hypertension 401.9 ; Anemia 285.9 and Depression 311 [facility] [id number] [place] [address] [id number] Jan, [facility] [id number] [place] [address] [id number] Jan, Anemia 285.9 and Follow up V67.9 [facility] [id number] [place] [address] [id number] Jan, [facility] [id number] [place] [address] [id number] Jan, [facility] [id number] [place] [address] [id number] Jan, [facility] [id number] [place] [address] [id number] Dec, [facility] [id number] [place] [address] [id number]- 3969 Oct, [facility] [id number] [place] [address] 97656- 2571 Oct, [facility] [id number] [place] [address] 72627- 5536 Sep, [facility] [place] [address] [facility] [id number] [place] [id number] Sep, [facility] [place] [facility] [address] [facility] [id number] [address]- 2356 Sep, [facility] [place] [address] [facility] [id number] [place] [id number] Aug, [facility] [place] [facility] [address] [facility] [id number] [place] [address]- 9836 Aug, [facility] [place] [facility] [address] [facility] [id number] [place] [address]- 2587 Aug, [facility] [place] [address] [facility] [id number] [place] [id number] Aug, [facility] [place] [facility] [address]00565100[place] [address]- 3119 Aug, [facility] [place] [facility] [address] [place] [id number] [address]- 2549 Aug, [facility] [place] [address] [facility] [id number] [place] [id number] Aug, [facility] [place] [facility] [address] [id number] [address]- 6196 Aug, [facility] [place] [address] [facility] [id number] [place] [id number] Jul, [facility] [place] [facility] [address]00565100[place] [address]- 4476 Jul, [facility] [place] [facility] [address] [facility] [id number] [place] [address]- 0616 Jul, [facility] [place] [address] [facility] [id number] [place] [id number] Jul, [facility] [place] [facility] [address] [facility] [id number] [place] [address]- 1306 Jul, [facility] [place] [address] [facility] [id number] [place] [id number] Jul, [facility] [place] [facility] [address] [facility] [id number] [place] [address]- 2546 Jul, [facility] [place] [address] [id number] [place] [id number] Jun, [facility] [place] [address] [facility] [id number] [place] [id number] Jun, [facility] [place] [facility] [address] [facility] [id number] [place] [address]- 4946 Jun, [facility] [place] [facility] [address] [facility] [id number] [place] [address]- 8169 Jun, [facility] [place] [address] [facility] [id number] [place] [id number] Jun, [facility] [place] [facility] [address] [facility] [id number] [place] [address]- 8666 Jun, [facility] [place] [address] [place] [id number] [place] [id number] May, [facility] [place] [facility] [address] [facility] [id number] [place] [address]- 7436 May, [facility] [place] [facility] [address] [facility] [id number] [place] [address]- 9106 May, [facility] [place] [address] [facility] [id number] [place] [id number] Apr, [facility] [place] [facility] [address] [facility] [id number] [place] [address]- 3086 Apr, [facility] [place] [address] [facility] [id number] [place] [id number] Apr, [facility] [place] [address] [facility] [id number] [place] [id number] Apr, [facility] [place] [facility] [address] [facility] [id number] [place] [address]- 2816 Apr, [facility] [place] [facility] [address] [facility] [id number] [place] [address]- 5316 Apr, [facility] [place] [address] [facility] [id number] [place] [id number] Mar, [facility] [place] [facility] [address] [id number] [place] [address]- 5894 18 Mar, 2014 [facility] [place] [address] [id number] [place] [id number] Mar, [facility] [place] [facility] [address] [facility] [id number] [place] 7304 Mar, [facility] [place] [address] [id number] [place] [id number] Mar, [facility] [place] [facility] [address] [facility] [id number] [place] [address]- 3567 Mar, [facility] [place] [address] [id number] [place] [id number] Mar, [facility] [place] [facility] [address] [facility] [id number] [place] [address]- 0843 Mar, [facility] [place] [address] [facility] [id number] [place] [id number] Mar, [facility] [place] [facility] [address] [facility] [id number] [place] [address]- 1326 Mar, [facility] [place] [address] [facility] [id number] [place] [id number] Feb, [facility] [place] [facility] [address] [facility] [id number] [place] [address]- 9207 Feb, [facility] [address] [id number] [place] [id number] Jan, [facility] [place] [facility] [address] [facility] [id number] [place] [address]- 4724 Jan, [facility] [address] [id number] [place] [id number] Jan, [facility] [place] [facility] [address] [facility] [id number] [place] [address]- 5580 Jan, [facility] [address] [id number] [place] [id number] Jan, [facility] [place] [facility] [address] [facility] [id number] [place] 59965020- 5956 Jan, [facility] [place] [facility] [address] [id number] [place] [address]- 2546 Dec, [facility] [place] [facility] [address] [id number] [place] [address]- 2546 Dec, [facility] [address] [id number] [place] [id number] November, [facility] [place] [facility] [address] [id number] [place] [address]- 2546 November, [facility] [address] [id number] [place] [id number] November, [facility] [place] [facility] [address] [id number] [place] [address]- 2546 November, [facility] [address] [id number] [place] [id number] Oct, [facility] [place] [facility] [address] [id number] [place] [address]- 7786 Oct, [facility] [place] [facility] [address] [id number] [place] [address]- 7276 Oct, [facility] [place] [facility] [address] [id number] [place] [address]- 7746 Oct, [facility] [place] [facility] [address] [id number] [place] [address]- 2546 Oct, [facility] [place] [facility] [address] [id number] [place] [address]- 2546 Oct, [facility] [address] [id number] [place] [id number] Sep, [facility] [address] [id number] [place] [id number] Sep, [facility] [place] [facility] [address] [id number] [place] [address]- 2546 Sep, [facility] [place] [facility] [address] [id number] [place] [address]- 2546 Sep, [facility] [address] [id number] [place] 258060449 Sep, [facility] [place] [facility] [address]00565100[place] [address]- 6890 Sep, [facility] [place] [facility] [address] [id number] [address]- 6165 Aug, [facility] [place] [facility] [address]00565100[place] [address]- 8330 Aug, [facility] [address] [facility] [id number] [place] [id number] Aug, [facility] [place] [address] [place] [id number] [place] 532670905 Aug, [facility] [place] [facility] [address]00565100[place] [address]- 5245 Aug, [facility] [id number] [place] 649008140 Aug, [facility] [place] [facility] [address]00565100[place] [address]- 1101 Aug, [facility] [address] [place] [id number] [place] 151698978 Aug, [facility] [place] [facility] [address]00565100[place] [address]- 1724 Aug, [facility] [place] [address] [place] [address] [id number] [place] 340572682 Aug, [facility] [place] [facility] [address] [id number] [address]- 6754 Aug, [facility] [address] [facility] [id number] [place] 103229219 Aug, [facility] [place] [facility] [address]00565100[place] [address]- 0451 Aug, [facility] [place] [facility] [address] [id number] [address]- 0384 Jul, [facility] [place] [address] [place] [id number] [place] 760236019 Jun, [facility] [place] [facility] [address] [id number] [place] [address]- 6776 Jun, [facility] [place] [facility] [address] [id number] [place] [address]- 6076 Jun, [facility] [place] [facility] [address] [facility] [id number] [place] [address]- 6966 Jun, [facility] [address] [facility] [id number] [place] [id number] Jun, [facility] [place] [facility] [address] [id number] [place] [address]- 5356 Jun, [facility] [place] [facility] [address] [facility] [id number] [place] [address]- 2546 Jun, [facility] [address] [facility] [id number] [place] [id number] Jun, [facility] [place] [facility] [address] [facility] [id number] [place] [address]- 8556 Jun, [facility] [place] [facility] [address] [facility] [id number] [place] [address]- 6799 May, [facility] [address] [facility] [id number] [place] 939405060 May, [facility] [place] [facility] [address] [facility] [id number] [address]- 9926 May, [facility] [place] [facility] [address] [facility] [id number] [place] [address]- 0966 May, [facility] [place] [facility] [address] [id number] [place] [address]- 9506 May, [facility] [place] [facility] [address] [facility] [id number] [place] [address]- 9536 May, [facility] [address] [facility] [id number] [place] 464483634 May, [facility] [place] [facility] [address] [facility] [id number] [place] [address]- 3656 May, [facility] [address] [facility] [id number] [place] [id number] May, [facility] [place] [facility] [address] [facility] [id number] [place] [address]- 6616 May, [facility] [address] [facility] [id number] [place] [id number] Apr, [facility] [place] [facility] [address] [facility] [id number] [place] [address]- 0517 Apr, [facility] [place] [facility] [address] [facility] [id number] [place] [address]- 9244 Apr, [facility] [address] [facility] [id number] [place] 906357786 Apr, [facility] [place] [facility] [address] [facility] [id number] [place] [address]- 9063 Apr, [facility] [place] [facility] [address] [facility] [id number] [place] [address]- 1208 Apr, [facility] [place] [address] [facility] [id number] [place] 270178183 Apr, [facility] [place] [facility] [address] [facility] [id number] [place] 847[place]- 7813 Apr, [facility] [place] [facility] [address] [facility] [id number] [place] [address]- 5289 Apr, [facility] [place] [facility] [address] [facility] [id number] [place] [address]- 2630 Apr, [facility] [place] [address] [facility] [id number] [place] 715590785 Apr, [facility] [place] [facility] [address] [facility] [id number] [place] [address]- 0376 Apr, [facility] [place] [address] [facility] [id number] [place] 722880271 Apr, [facility] [place] [facility] [address] [facility] [id number] [place] [address]- 2906 Apr, [facility] [place] [address] [facility] [id number] [place] 428243748 Apr, [facility] [address] [facility] [id number] [place] [address]- 9789 Apr, [facility] [place] [facility] [address] [facility] [id number] [place] [address]- 6143 Apr, [facility] [address] [facility] [id number] [place] [address]- 0116 Apr, [facility] [place] [address] [id number] [place] 430844242 Apr, [facility] [place] [facility] [address] [facility] [id number] [place] 48[place]- 8811 Mar, [facility] [address] [facility] [id number] [place] 3718[place]- 0542 Mar, [facility] [address] [id number] [place]476[place] Mar, [facility] [address] [id number] [place] 651184260 Mar, [facility] [address] [id number] [place] 662087918 Mar, [facility] [address] [id number] [place] 023972600 Feb, [facility] [address] [id number] [place] 887230083 Feb, [facility] [address] [id number] [place] 086755838 Feb, [facility] [place] [facility] [address] [facility] [id number] [place] [address] 2546 Feb, [facility] [address] [id number] [place] 802904631 Feb, [facility] [address] [id number] [place] 017968543 Feb, [facility] [address] [id number] [place] 435838352 Feb, [facility] [address] [id number] [place] 713503273 Feb, [facility] [place] [address] [id number] [place] 964147848 Feb, [facility] [place] [address] [id number] [place]137 Jan, [facility] [place] [address] [id number] [place] 327532825 Jan, [facility] [place] [address] [id number] [place] 018103709 Jan, [facility] [place] [address] [id number] [place] 806647960 Jan, [facility] [place] [address] [id number] [place] 638440050 Jan, [facility] [address] [facility] [id number] [place] [address]- 6696 Jan, [facility] [place] [address] [id number] [place] 856394974 Jan, [facility] [place] [address] [id number] [place] 293022192 Jan, [facility] [place] [address] [id number] [place] 211295289 Dec, [facility] [place] [address] [id number] [place] 35[place]8041 November, [facility] [place] [address] [id number] [place] 897928958 November, [facility] [place] [address] [id number] [place] 516206735 November, [facility] [place] [address] [id number] [place] 165735495 November, [facility] [place] [address] [id number] [place] 812104900 November, [facility] [place] [address] [id number] [place] 409902457 November, [facility] [place] [address] [id number] [place] 393152424 Jul, [facility] [place] [address] [id number] [place] 560683765 Jul, [facility] [place] [address] [id number] [place] 722911874 Jul, [facility] [place] [address] [id number] [place] 792740677 Jun, [facility] [place] [facility] [address] [facility] [id number] [place] [address]- 9325 Jun, [facility] [place] [address] [facility] [id number] [place] 620042333 May, [facility] [place] [facility] [address] [facility] [id number] [place] [address]- 6724 May, [facility] [place] [address] [facility] [id number] [place] 646705773 May, [facility] [place] [facility] [address] [facility] [id number] [place] [address]- 0939 May, [facility] [place] [address] [facility] [id number] [place] 365548403 May, [facility] [place] [facility] [address]00565100[place] [address]- 5113 May, [facility] [place] [address] [facility] [id number] [place] 521574218 Apr, [facility] [place] [facility] [address]00565100[place] [address]- 2399 Apr, [facility] [place] [facility] [address] [facility] [id number] [place] [address]- 4258 18 Apr, 2012 [facility] [place] [address] [id number] [place] [id number] Apr, [facility] [place] [address] [facility] [id number] [place] 833196636 Apr, [facility] [place] [facility] [address] [facility] [id number] [place]385[place]- 0252 Apr, [facility] [place] [facility] [address] [facility] [id number] [place] [address]- 6336 Apr, [facility] [place] [address] [facility] [id number] [place] [id number] Apr, [facility] [place] [facility] [address] [facility] [id number] [place] [address] Apr, [facility] [place] [address] [id number] [place] [id number] Apr, [facility] [place] [address] [id number] [place] [id number] Apr, [facility] [place] [address] [id number] [place] [id number] Mar, [facility] [place] [address] [id number] [place] [id number] Feb, [facility] [place] [address] [id number] [place] [id number] Jan, [facility] [place] [address] [id number] [place] [id number] Dec, [facility] [place] [address] [id number] [place] [id number] Dec, [facility] [place] [address] [id number] [place] [id number] Dec, [facility] [place] [address] [id number] [place] [id number] Dec, [facility] [place] [address] [id number] [place] [id number] Dec, [facility] [place] [address] [id number] [place] [id number] November, [facility] [place] [address] [id number] [place] [id number] November, [facility] [place] [address] [id number] [place] [id number] November, [facility] [address] [facility] [id number] [place] [address] November, [facility] [place] [address] [id number] [place] [id number] November, [facility] [place] [address] [id number] [place] [id number] November, [facility] [place] [address] [id number] [place] [id number] Oct, [facility] [place] [address] [id number] [place] [id number] Oct, [facility] [place] [address] [id number] [place] [id number] Oct, [facility] [place] [address] [id number] [place] [id number] Oct, [facility] [place] [address] [id number] [place] [id number] Oct, [facility] [place] [address] [id number] [place] [id number] Oct, [facility] [place] [address] [id number] [place] [id number] Sep, [facility] [place] [address] [id number] [place] [id number] Aug, [facility] [place] [address] [id number] [place] [id number] Aug, [facility] [place] [address] [id number] [place] [id number] Jul, [facility] [place] [facility] [address] [id number] [address] Jun, [facility] [place] [facility] [id number] [place] [address]- [address] Jun, [facility] [place] [facility] [id number] [place] [address]- [address] Jun, [facility] [place] [facility] [id number] [address] Jun, [facility] [place] [facility] [id number] [address] May, [facility] [place] [facility] [address] [id number] [address] May, [facility] [place] [facility] [id number] [place] [address] Apr, [facility] [place] [facility] [id number] [address] Apr, [facility] [place] [facility] [address] [id number] [place] [address] 10 Apr, 2011 [facility] [address] [id number] [place] [address] Feb, [facility] [place] [facility] [address] [id number] [place] [address] 15 Aug, 2010 [facility] [place] [facility] [address] [id number] [place] [address] Jul, [facility] [place] [facility] [address] [id number] [place] [address] 254 30 Jun, 2010 [facility] [place] [facility] [address] [id number] [place] [address] May, [facility] [place] [facility] [address] [id number] [place] [address] May, [facility] [place] [facility] [address] [id number] [place] [address] May, [facility] [place] [facility] [address] [id number] [place] [address] May, [facility] [place] [facility] [address] [id number] [place] [address] May, [facility] [place] [facility] [address] [facility] [id number] [place] [address] 16 Aug, 2009 [facility] [place] [facility] [address] [id number] [place] [address] Jun, [facility] [place] [facility] [address] [id number] [place] [address]- [address]40 Jun, [facility] [place] [facility] [address] [id number] [place] [address]- [address] Jun, [facility] [place] [facility] [address] [id number] [place] [address]- [address] 24 May, 2009 [facility] [place] [facility] [address] [id number] [place] [address] Apr, [facility] [address] [facility] [id number] [address] Apr, [facility] [address] [id number] [address] Apr, [facility] [address] [id number] [address] Jan, [facility] [id number] [address] Oct, [facility] [address] [id number] [address] May, [place] [id number] [address] May, IMMUNIZATIONS No Known Immunizations SOCIAL HISTORY Never Assessed REASON FOR VISIT Refill request PLAN OF CARE VITAL SIGNS MEDICATIONS Medication Instructions Dosage Frequency Start Date End Date Duration Status NovoLog Flexpen 100 UNIT/ML ICD10- E11.29 3 times a day with meals 50 Jul, Active Victoza 18 MG/3ML INJECT 1.8 MG SUBCUTANEOUSLY ONCE DAILY... Active Eliquis 5 mg Orally 2 times [...] Dialysis [facility] Revel[facility] 2012 -Dr. Simon now [facility] Medical History Colonoscopy (polyps 2 ) [...]
--- OUTSIDE RECORDS SUMMARY | 2017-12-22 19:41 | XMS REPORT ---
Author Author CHELSY VILLAFANA Organization [facility] Address [address] [place] [address] Care Team Providers Care Hammer Runner Name Role Phone CHELSY VILLAFANA Unavailable PROBLEMS Type Condition ICD9-CM Code JXY43-RM Code Onset Dates Condition Status SNOMED Code Problem Chronic pain syndrome G89.4 Active 012955438 Problem Type 2 diabetes mellitus with hyperglycemia E11.65 Active 829619416541221 Problem Primary insomnia F51.01 Active 5417272 Problem Bilateral lower extremity edema R60.0 Active 518341869 Problem Anemia in other chronic diseases classified elsewhere D63.8 Active 854692846 Problem Supplemental oxygen dependent Z99.81 Active 490117822612 Problem Right carpal tunnel syndrome G56.01 Active 538188068748082 Problem 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 Active 107213124774439 Problem Paresthesia of right upper extremity R20.2 Active 00578688 Problem Chronic kidney disease, stage 4 (severe) N18.4 Active 828936322 Problem 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 Active 420705648 Problem Psoriasis of scalp L40.9 Active 188432118 Problem Gastroesophageal reflux disease without esophagitis K21.9 Active 635423499 Problem Chronic obstructive pulmonary disease, unspecified COPD type J44.9 Active 90920707 Problem Type 2 diabetes mellitus with other diabetic kidney complication E11.29 Active 611278150 Problem Diabetic polyneuropathy associated with type 2 diabetes mellitus E11.42 Active 60353366 Problem History of DVT (deep vein thrombosis) Z86.718 Active 143027718 Problem FPC current use of anticoagulant Z79.01 Active 133563653 Problem Oxygen desaturation during sleep G47.34 Active 686608108 Problem Essential hypertension I10 Active 25211702 Problem Depression, unspecified depression type F32.9 Active 54357629 Problem Sleep apnea in adult G47.33 Active 14262843 ALLERGIES No Information ENCOUNTERS Encounter Location Date Diagnosis [facility] [id number] [id number] Dec, [facility] [address] [address] Dec, Essential hypertension I10 [facility] [address] [address] 0915 November, Type 2 diabetes mellitus with other diabetic kidney complication E11.29 [facility] [id number] [address] 1599 November, Chronic pain syndrome G89.4 [facility] [address] [address] November, [facility] [id number] [place] [address] 76054- 4880 November, [facility] [id number] [place] [address] 30356- 8278 November, [facility] [id number] [place] [address] 99865- 2918 Oct, Type 2 diabetes mellitus with other diabetic kidney complication E11.29 [facility] [address] [address] 1189 Oct, Primary insomnia F51.01 [facility] [id number] [id number] Oct, Bilateral lower extremity edema R60.0 [facility] [address] [address] 6[address] Oct, [facility] [address] [address] 7[address] Sep, Type 2 diabetes mellitus with other diabetic kidney complication E11.29 and Chronic obstructive pulmonary disease, unspecified COPD type J44.9 [facility] [address] [address] 3157 Aug, Type 2 diabetes mellitus with other diabetic kidney complication E11.29 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 [address] [place] [address] 19870- 6007 08 Aug, 2017 Chronic pain syndrome G89.4 [facility] [id number] [place] [address] 21926- 0503 Aug, Type 2 diabetes mellitus with other diabetic kidney complication E11.29 [place] [id number] [place] [address] 56850- 0763 Jul, Diabetic polyneuropathy associated with type 2 diabetes mellitus E11.42 [facility] [id number] [place] [address] 86928- 0783 Jul, Primary insomnia F51.01 [facility] [id number] [place] [address] 26399- 6782 Jul, [facility] [id number] [place] [address] 87648- 7784 Jul, Type 2 diabetes mellitus with other diabetic kidney complication E11.29 and Chronic obstructive pulmonary disease, unspecified COPD type J44.9 [facility] [id number] [place] [address] 92802- 1304 Jul, Type 2 diabetes mellitus with other diabetic kidney complication E11.29 [facility] [id number] [place] [address] 98935- 2727 Jun, Type 2 diabetes mellitus with other diabetic kidney complication E11.29 [facility] [id number] [place] [address] 99306- 4186 Jun, 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 and Essential hypertension I10 [address] [address]41- 3757 May, Anemia in other chronic diseases classified elsewhere D63.8 ; Chronic obstructive pulmonary disease, unspecified COPD type J44.9 ; Oxygen desaturation during sleep G47.34 ; Sleep apnea in adult G47.33 and Supplemental oxygen dependent Z99.[address] 13980- 9332 May, Type 2 diabetes mellitus with other diabetic kidney complication E11.29 ; Essential hypertension I10 ; Chronic pain syndrome G89.4 ; BMI 40.0-44.9, adult Z68.41 ; Gastroesophageal reflux disease without esophagitis K21.9 ; 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 ; FPC 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 ; Diabetic polyneuropathy associated with type 2 diabetes mellitus E11.42 ; Edema of both legs R60.0 and Supplemental oxygen dependent Z99.81 [place] [id number] [place] [address] 51443- 7529 May, [place] [id number] [place] [address] 04842- 4003 May, Essential hypertension I10 and Gastroesophageal reflux disease without esophagitis K21.9 [place] [id number] [place] [address] 77123- 5213 May, [place] [id number] [place] [address] 36584- 8585 May, Type 2 diabetes mellitus with other diabetic kidney complication E11.29 and FPC current use of anticoagulant Z79.01 [place] [id number] [place] [address] 77538- 9379 Apr, Chronic pain syndrome G89.4 and Essential hypertension I10 [facility] [id number] [place] [address] 20710- 7505 Apr, Type 2 diabetes mellitus with other diabetic kidney complication E11.29 [facility] [id number] [place] [address] 94140- 2106 Apr, Type 2 diabetes mellitus with other diabetic kidney complication E11.29 [place] [id number] [place] [address] 46018- 6458 Apr, Essential hypertension I10 [facility] [facility] [id number] [place] [address] 15296- 7306 Apr, Gastroesophageal reflux disease without esophagitis K21.9 [facility] [id number] [place] [address] 49278- 8162 Apr, Type 2 diabetes mellitus with other diabetic kidney complication E11.29 [facility] [id number] [place] [address] 54430- 7128 Apr, Type 2 diabetes mellitus with other diabetic kidney complication E11.29 and 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 [id number] [place] [address] 54952- 0243 Mar, Type 2 diabetes mellitus with other diabetic kidney complication E11.29 [place] [id number] [place] [address] 82588- 3532 Mar, Type 2 diabetes mellitus with other diabetic kidney complication E11.29 [facility] [facility] [id number] [place] [address] 42762- 2081 Mar, Gastroesophageal reflux disease without esophagitis K21.9 [facility] [id number] [place] [address] 39057- 7792 Mar, Essential hypertension I10 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 [id number] [place] [address] 06406- 7411 Feb, Type 2 diabetes mellitus with other diabetic kidney complication E11.29 [facility] [id number] [place] [address] 71643- 3319 Feb, Type 2 diabetes mellitus with other diabetic kidney complication E11.29 [facility] [id number] [place] [address] 68302- 3907 Feb, Type 2 diabetes mellitus with other diabetic kidney complication E11.29 [facility] [id number] [place] [address] 60455- 8783 Feb, Gastroesophageal reflux disease without esophagitis K21.9 [facility] [id number] [place] [address] 27102- 0436 Feb, Type 2 diabetes mellitus with other diabetic kidney complication E11.29 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 [address] [address]- 6676 Jan, Type 2 diabetes mellitus with other diabetic kidney complication E11.29 [facility] [address] [address]- 6845 Jan, Type 2 diabetes mellitus with other diabetic kidney complication E11.29 [facility] [id number] [place] [address] 63913- 0375 Jan, Chronic pain syndrome G89.4 [facility] [address] [address]- 5234 Jan, [facility] [id number] [place] [address] 26709- 7908 Jan, [facility] [address] [address]- 2689 Jan, [facility] [address] [address]- 0120 Jan, [facility] [address] [address]- 1835 Jan, Primary insomnia F51.01 ; Type 2 diabetes mellitus with other diabetic kidney complication E11.29 ; Chronic pain syndrome G89.4 and Essential hypertension I10 [facility] [address] [address]- 6932 Jan, Primary insomnia F51.01 [facility] [address] [address]- 2151 Jan, Type 2 diabetes mellitus with other diabetic kidney complication E11.29 [facility] [address] [address]- 9430 Jan, [facility] [address] [address]- 6884 Jan, Chronic obstructive pulmonary disease, unspecified COPD type J44.9 [facility] [address] [address]- 8538 Jan, Essential hypertension I10 ; Type 2 diabetes mellitus with other diabetic kidney complication E11.29 ; Chronic obstructive pulmonary disease, unspecified COPD type J44.9 ; Chronic kidney disease, stage 4 (severe) N18.4 ; Right carpal tunnel syndrome G56.01 ; 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 ; truck terminal manager (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 and Diabetic polyneuropathy associated with type 2 diabetes mellitus E11.42 [facility] [address] [address]- 2145 Jan, Gastroesophageal reflux disease without esophagitis K21.9 [facility] [address] [address]- 5488 Dec, [facility] [address] [address]- 7589 Dec, [facility] [id number] [place] [address] 88104- 8200 Dec, [facility]PC current use of anticoagulant Z79.01 ; Chronic pain syndrome G89.4 and Essential hypertension I10 [facility] [id number] [place] [address] 00808- 0106 Dec, [facility] [id number] [place] [address] 23675- 0169 Dec, Type 2 diabetes mellitus with other diabetic kidney complication E11.29 [facility] [id number] [place] [address] 65518- 1122 Dec, [facility] [id number] [place] [address] 25254- 7453 Dec, Gastroesophageal reflux disease without esophagitis K21.9 [facility] [id number] [place] [address] 62365- 9249 November, Type 2 diabetes mellitus with other diabetic kidney complication E11.29 [facility] [id number] [address]- 2785 November, [facility] [id number] [place] [address] 26653- 0578 November, Type 2 diabetes mellitus with other diabetic kidney complication E11.29 [facility] [address] [address]- 9869 November, [facility] [address] [address]- 1065 November, Type 2 diabetes mellitus with other diabetic kidney complication E11.29 [facility] [address] [address]- 8981 November, [facility] [address] [address]- 0437 Oct, Essential hypertension I10 [place] [id number] [place] [address] 37798- 3037 10 Oct, 2016 Psoriasis of scalp L40.9 [place] [id number] [place] [address] 16411- 5214 Oct, Essential hypertension I10 and Chronic pain syndrome G89.4 [place] [id number] [place] [address] 65880- 9466 Oct, [place] [id number] [place] [address] 70796- 4933 Sep, Type 2 diabetes mellitus with other diabetic kidney complication E11.29 [place] [id number] [place] [address] 80913- 7031 Sep, [place] [id number] [place] [address] 77667- 2934 Sep, Type 2 diabetes mellitus with other diabetic kidney complication E11.29 [facility] [id number] [place] [address] 51455- 8351 Sep, Type 2 diabetes mellitus with other diabetic kidney complication E11.29 [place] [id number] [place] [address] 64287- 8407 Sep, Type 2 diabetes mellitus with other diabetic kidney complication E11.29 ; Chronic kidney disease, stage 4 (severe) N18.4 ; Chronic obstructive pulmonary disease, unspecified COPD type J44.9 ; Iron deficiency anemia due to chronic blood loss D50.0 ; 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 [id number] [place] [address] 93951- 3954 Aug, History of DVT (deep vein thrombosis) Z86.718 [facility] [id number] [place] [address] 95967- 8696 14 Aug, 2016 [facility] [address] 57475- 0484 Jul, [facility] [id number] [place] [address] 19296- 1464 Jul, 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 [id number] [place] [address] 32851- 8329 Jul, [facility] [id number] [place] [address] 67251- 5009 Jul, [facility] [id number] [place] [address] 85297- 8870 Jul, [facility] [id number] [place] [address] 18884- 1434 Jul, [facility] [id number] [place] [address] 14337- 6185 Jul, [facility] [id number] [place] [address] 39977- 9752 Jul, Type 2 diabetes mellitus with other diabetic kidney complication E11.29 [facility] [id number] [place] [address] 95734- 6286 Jul, History of DVT (deep vein thrombosis) Z86.718 [facility] [id number] [place] [address] 44818- 8657 Jun, [place] [address] [address]- 7142 19 Jun, 2016 History of DVT (deep vein thrombosis) Z86.718 [place] [address] [place] [address] 67544- 5988 15 Jun, 2016 Post traumatic stress disorder (PTSD) F43.10 [place] [id number] [place] [address] 34824- 1204 07 Jun, 2016 Type 2 diabetes mellitus with other diabetic kidney complication E11.29 ; Diabetic polyneuropathy associated with type 2 diabetes mellitus E11.42 ; Iron deficiency anemia due to chronic blood loss D50.0 ; Chronic obstructive pulmonary disease, unspecified COPD type J44.9 ; FPC current use of anticoagulant Z79.01 ; History [...] pain M79.641 and Right wrist pain M25.531 [place] [address] [place] [address] 07869- 5684 May, [place] [id number] [place] [address] 10000- 8569 May, [place] [id number] [place] [address] 75818- 5541 May, [place] [id number] [place] [address] 23178- 0212 May, [place] [id number] [place] [address] 21671- 1860 May, Anemia in other chronic diseases classified elsewhere D63.8 [place] [address] [place] [address]- 6330 02 May, 2016 [facility] [address] [facility] [id number] [place] [address]- 3273 Apr, [facility] [id number] [address] 2546 27 Mar, 2015 Dermatofibroma D23.9 [facility] [id number] [address] 2546 20 Mar, 2015 [facility] [address] [facility] [id number] [place] [address] 2540 14 Mar, 2015 Chronic pain syndrome G89.4 [facility] [address] [address] 2546 09 Mar, 2015 [facility] [id number] [address]- 3833 07 Mar, 2015 [facility] [address] [address]- 8817 06 Mar, 2015 [facility] [id number] [address]- 0444 30 Feb, 2016 [facility] [id number] [address]- 8788 Feb, [facility] [id number] [address]- 6480 Feb, [facility] [id number] [address]- 8297 Feb, [facility] [address] [facility] [id number] [place] [address]- 2540 Feb, [facility] [id number] [address]- 9319 15 Feb, 2016 [facility] [id number] [address]- 5562 Feb, 2016 Type 2 diabetes mellitus with other diabetic kidney complication E11.29 ; Diabetic polyneuropathy associated with type 2 diabetes mellitus E11.42 ; Iron deficiency anemia due to chronic blood loss D50.0 ; Chronic obstructive pulmonary disease, unspecified COPD type J44.9 ; [facility]PC current use of anticoagulant Z79.01 ; History of DVT (deep vein thrombosis) Z86.718 ; Chronic pain syndrome G89.4 ; Oxygen desaturation during sleep G47.34 ; Sleep apnea in adult G47.33 ; Gastroesophageal reflux disease without esophagitis K21.9 ; Essential hypertension I10 ; Primary insomnia F51.01 ; Depression, unspecified depression type F32.9 and Renal failure, chronic, stage 4 (severe) N18.4 [place] [address] 08181- 8681 Feb, Skin tags, multiple acquired L91.8 [place] [address] 23323- 2807 Jan, [facility] [address] [id number] Jan, Dental examination Z01.20 [facility] [address] 64173- 9575 Jan, [place] [address] 27659- 4490 Jan, Type 2 diabetes mellitus with other diabetic kidney complication E11.29 ; Diabetic polyneuropathy associated with type 2 diabetes mellitus E11.42 ; Iron deficiency anemia due to chronic blood loss D50.0 ; Chronic obstructive pulmonary disease, unspecified COPD type J44.9 ; [facility]PC current use of anticoagulant Z79.01 ; History of DVT (deep vein thrombosis) Z86.718 ; Chronic pain syndrome G89.4 ; Oxygen desaturation during sleep G47.34 ; Sleep apnea in adult G47.33 ; Gastroesophageal reflux disease without esophagitis K21.9 ; Essential hypertension I10 ; Primary insomnia F51.01 ; Depression, unspecified depression type F32.9 ; Skin lesion L98.9 and Renal failure, chronic, stage 4 (severe) N18.4 [place] [address] 45107- 0456 Dec, Diabetes type 2, uncontrolled E11.65 [facility] [address] [address]- 6654 Dec, 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 ; History of DVT (deep vein thrombosis) Z86.718 ; Chronic pain syndrome G89.4 ; Oxygen desaturation during sleep G47.34 ; Sleep apnea in adult G47.33 ; Gastroesophageal reflux disease without esophagitis K21.9 ; Essential hypertension I10 ; Primary insomnia F51.01 and Depression, unspecified depression type F32.9 [facility] [id number] [place] [address] [id number] Dec, Dental caries K02.9 [facility] [id number] [place] [address] [id number] Dec, [facility] [address] [id number] Dec, Dental examination Z01.20 [facility] [id number] [place] [address] [id number] November, Dental examination Z01.20 and Dental caries K02.9 [facility] [address] [id number] [id number] Oct, [facility] [facility] [address] [id number] [place] [id number] Oct, [facility] [address] [id number] [place] [address] [id number] Sep, [facility] [address] [id number] [place] [address] [id number] Sep, [facility] [address] [id number] [place] [address] [id number] Sep, [facility] [address] [id number] [place]ILL[place] [id number] Sep, Other chronic pain 338.29 [facility] [place] [id number] [place] [id number] Aug, Diabetes type 2, uncontrolled E11.65 and Morbid obesity due to excess calories E66.01 [facility] [place] [id number] [place]ILL[place] [id number] Aug, Hair loss L65.9 [facility] [place] [id number] [place] [address] [id number] Aug, [facility] [place] [id number] [place] [id number] Jul, [facility] [place] [id number] [place] [address] [id number] Jul, [facility] [place] [id number] [place] [address] [id number] Jun, [facility] [place] [id number] [place] [address] [id number] Jun, Hair loss L65.9 and Disorder of the skin and subcutaneous tissue, unspecified L98.9 [facility] [place] [id number] [place] [address] [id number] May, Type 2 diabetes mellitus with other diabetic kidney complication E11.29 ; Type 2 diabetes mellitus with hyperglycemia E11.65 ; Morbid obesity due to excess calories E66.01 and Essential hypertension I10 [facility] [place] [id number] [place] [address] [id number] May, Diabetes type 2, uncontrolled E11.65 ; Encounter for immunization Z23 and Morbid obesity due to excess calories E66.01 [facility] [place] [id number] [place]ILL[place] [id number] May, [facility] [id number] [place] [address] [id number] [id number] Apr, [facility] [place] [id number] [place] [address] [id number] Apr, Hyperglycemia R73.9 [facility] [place] [id number] [place]ILL[place] [id number] Apr, [facility] [id number] [place]ILL[place] [id number] Apr, Depression F32.9 ; Encounter for immunization Z23 ; Hyperglycemia R73.9 and Anemia in other chronic diseases classified elsewhere D63.8 [facility] [place] [address] [id number] [place] [id number] Mar, [facility] [address]00565100[place] [id number] Feb, Positive occult stool blood test 792.[id number] [place] [address] [id number] Feb, Depression 311 ; Other chronic pain 338.29 and Diabetes with renal manifestations, type II or unspecified type, not stated as uncontrolled 250.40 [facility] [address]00565100[place] [address]- [address] Feb, Occult blood in stools 792.[address]00565100[place] [id number] Feb, Anemia 285.9 ; Occult blood positive stool 792.1 ; Unspecified essential hypertension 401.9 and Other chronic pain 338.29 [address]00565100[place] [id number] Feb, [address]00565100[place] [id number] Feb, Anemia 285.9 [address]00565100[place] [id number] Feb, [address]00565100[place] [id number] Feb, [address] [id number] [id number] Feb, Diabetes with renal manifestations, type II or unspecified type, not stated as uncontrolled 250.40 ; Other chronic pain 338.29 ; Unspecified essential hypertension 401.9 ; Anemia 285.9 and Depression 311 [address]00565100[place] [id number] Jan, [id number] [place] [address] [id number] Jan, Anemia 285.9 and Follow up V67.9 [facility] [place] [address] [id number] [place] [id number] Jan, [facility] [place] [address] [id number] [place] [id number] Jan, [facility] [place] [address] [facility] [id number] [place] [id number] Jan, [facility] [place] [address] [id number] [place] [id number] Dec, [facility] [place] [facility] [address]00565100[place] [address]- 6542 Oct, [facility] [place] [facility] [id number] [place] [address]- 2867 Oct, [facility] [place] [facility] [address] [id number] [address]- 2259 Sep, [facility] [place] [id number] [place]ILL, [place] [id number] Sep, [facility] [place] [facility] [address]00565100[place] 22613659- 3939 Sep, [facility] [place] [id number] [place] [id number] Aug, [facility] [place] [facility] [address]00565100[place] [address]- 5461 Aug, [facility] [place] [facility] [address]00565100[place] [address]- 7644 Aug, [facility] [place] [address] [id number] [place] [id number] Aug, [facility] [place] [facility] [address]00565100[place] [address]- 0897 Aug, [facility] [place] [facility] [address]00565100[place] [address]- 3889 Aug, [facility] [place] [address] [id number] [place] [id number] Aug, [facility] [place] [facility] [address] [facility] [id number] [address]- 8264 Aug, [facility] [place] [address] [facility] [place] [id number] [place] [id number] Jul, [facility] [place] [facility] [address] [facility] [id number] [place] [address]- 7796 Jul, [facility] [place] [facility] [address] [facility] [id number] [place] [address]- 7542 Jul, [facility] [place] [address] [facility] [place] [id number] [place] [id number] Jul, [facility] [place] [facility] [address] [facility] [id number] [place] [address]- 4735 Jul, [facility] [place] [address] [facility] [id number] [place] [id number] Jul, [facility] [address] [facility] [id number] [address]- 8528 Jul, [facility] [place] [address] [facility] [place] [id number] [place] [id number] Jun, [facility] [place] [address] [facility] [place] [id number] [place] [id number] Jun, [facility] [place] [facility] [address] [id number] [address]- 8320 Jun, [facility] [place] [facility] [address] [facility] [id number] [address]- 0397 Jun, [facility] [place] [address] [facility] [place] [id number] [place] [id number] Jun, [facility] [place] [facility] [address] [facility] [id number] [address]- 9622 Jun, [facility] [place] [address] [facility] [place] [id number] [place] [id number] May, [facility] [place] [facility] [address] [facility] [id number] [place] [address]- 5889 May, [facility] [place] [facility] [address] [facility] [id number] [address]- 1203 May, [facility] [place] [address] [id number] [place] [id number] Apr, [facility] [place] [facility] [address] [facility] [id number] [place] [address]- 4103 Apr, [facility] [place] [address] [id number] [place] [id number] Apr, [facility] [place] [address] [id number] [place] [id number] Apr, [facility] [place] [facility] [address] [facility] [id number] [address]- 2625 Apr, [facility] [place] [facility] [address] [facility] [id number] [address]- 0676 Apr, [facility] [place] [address] [facility] [place] [id number] [place] [id number] Mar, [facility] [place] [facility] [address]00565100[place] [address]- 0504 Mar, [facility] [place] [address] [facility] [place] [id number] [place] [id number] Mar, [facility] [place] [facility] [address] [facility] [id number] [place] 505317- 5101 Mar, [facility] [place] [address] [facility] [place] [id number] [place] 835884610 Mar, [facility] [place] [facility] [address] [facility] [id number] [place] [address]- 9288 Mar, [facility] [place] [address] [facility] [place] [id number] [place] [id number] Mar, [facility] [place] [facility] [address] [facility] [id number] [address]- 0204 Mar, [facility] [place] [address] [facility] [place] [id number] [place] [id number] Mar, [facility] [place] [facility] [address] [facility] [id number] [address]- 2254 Mar, [facility] [place] [address] [facility] [place] [id number] [place] [id number] Feb, [facility] [place] [facility] [address] [id number] [place] [address]- 2546 Feb, [facility] [place] [address] [id number] [place] [id number] Jan, [facility] [place] [facility] [address] [id number] [place] [address]- 2546 Jan, [facility] [place] [address] [id number] [place] [id number] Jan, [facility] [place] [facility] [address] [id number] [place] [address]- 6236 Jan, [facility] [place] [address] [id number] [place] [id number] Jan, [facility] [place] [facility] [address] [id number] [place] [address] 2546 Jan, [facility] [place] [facility] [address] [facility] [id number] [place] [address]- 9596 Dec, [facility] [place] [facility] [address] [id number] [place] [address]- 4932 Dec, [facility] [place] [address] [id number] [place] [id number] November, [facility] [place] [facility] [address] [id number] [place] [address]- 9876 November, [facility] [place] [address] [id number] [place] [id number] November, [facility] [place] [facility] [address] [id number] [place] [address]- 2546 November, [facility] [place] [address] [id number] [place] [id number] Oct, [facility] [place] [facility] [address] [id number] [place] [address]- 4756 Oct, [facility] [place] [facility] [address] [id number] [place] [address]- 4170 Oct, [facility] [place] [facility] [address] [facility] [id number] [address]- 4261 Oct, [facility] [place] [facility] [address] [facility] [id number] [address]- 7287 Oct, [facility] [place] [facility] [address] [facility] [id number] [place] [address]- 6533 Oct, [facility] [place] [address] [facility] [place] [id number] [place] [id number] Sep, [facility] [place] [address] [facility] [place] [id number] [place] 869843247 Sep, [facility] [place] [facility] [address] [facility] [id number] [place] [address]- 0868 Sep, [facility] [place] [facility] [address]00565100[place] [address]- 4351 Sep, [facility] [place] [id number] [place]ILL, [place] 102896403 Sep, [facility] [place] [facility] [address]00565100[place] [address]- 4639 Sep, [facility] [place] [facility] [address]00565100[place] [address]- 8797 Aug, [facility] [place] [facility] [address]00565100[place] [address]- 3186 Aug, [facility] [place] [address] [id number] [place] [id number] Aug, [facility] [place] [address] [id number] 567915292 Aug, [facility] [place] [facility] [address] [facility] [id number] [address]- 6578 Aug, [facility] [place] [address] [facility] [place] [id number] [place] [id number] Aug, [facility] [place] [facility] [address] [facility] [id number] [address]- 2876 Aug, [facility] [place] [id number] [place] [id number] Aug, [facility] [place] [facility] [address] [id number] [place] [address]- 2546 Aug, [facility] [place] [address] [facility] [place] [id number] [place] [id number] Aug, [facility] [place] [facility] [address] [id number] [address]- 2546 Aug, [facility] [place] [address] [facility] [place] [id number] [place]ILL[place] [id number] Aug, [facility] [place] [facility] [address] [id number] [place] [address]- 2546 Aug, [facility] [place] [facility] [address] [facility] [id number] [place] [address]- 2546 Jul, [facility] [place] [address] [id number] [place] 185714276 Jun, [facility] [place] [facility] [address]00565100[place] [address]- 2546 Jun, [facility] [place] [facility] [address] [id number] [address]- 9986 Jun, [facility] [place] [facility] [address] [facility] [id number] [place] [address]- 0196 Jun, [facility] [place] [address] [id number] [place] [id number] Jun, [facility] [place] [facility] [address]00565100[place] [address]- 2546 Jun, [facility] [place] [facility] [address] [id number] [place] [address]- 2546 Jun, [facility] [place] [address] [facility] [place] [id number] [place] [id number] Jun, [facility] [place] [facility] [address] [facility] [id number] [address]- 2546 Jun, [facility] [place] [facility] [address] [facility] [id number] [address]- 2546 May, [facility] [place] [address] [facility] [place] [id number] [place] [id number] May, [facility] [place] [facility] [address]00565100[place] [address]- 7355 May, [facility] [place] [facility] [address] [id number] 0179[place]- 4461 May, [facility] [place] [facility] [address]00565100[place] [address]- 3265 May, [facility] [place] [facility] [address] [facility] [id number] [address]- 7906 May, [facility] [place] [address] [id number] [place] [address] [id number] May, [facility] [place] [facility] [address]00565100[place] [address]- 1421 May, [facility] [place] [id number] [place] [id number] May, [facility] [place] [facility] [address]00565100[place] [address]- 9015 May, [facility] [place] [address] [id number] [place] [id number] Apr, [facility] [place] [facility] [address]00565100[place] [address]- 9196 Apr, [facility] [place] [facility] [address]00565100[place] [address]- 7506 Apr, [facility] [place] [address] [facility] [place] [id number] [place]ILL[place] [id number] Apr, [facility] [place] [facility] [address] [facility] [id number] [place] [address]- 5214 Apr, [facility] [place] [facility] [address] [facility] [id number] [address]- 4559 Apr, [facility] [place] [address] [facility] [place] [id number] [id number] Apr, [facility] [place] [facility] [address]00565100[place] [address]- 7288 Apr, [facility] [place] [facility] [address] [facility] [id number] [place] [address]- 7372 Apr, [facility] [address] [facility] [id number] [place] [address]- 7727 Apr, [facility] [place] [address] [id number] [place] [id number] Apr, [facility] [address] [facility] [id number] [place] [address]- 5300 Apr, [facility] [place] [address] [id number] [place] 099561134 Apr, [facility] [address] [facility] [id number] [place] [address]- 5210 Apr, [facility] [place] [address] [id number] [place] 656888670 Apr, [facility] [place] [facility] [address] [facility] [id number] [place] 685[place]- 0009 Apr, [facility] [place] [facility] [address] [facility] [id number] [place] [address]- 6810 Apr, [facility] [address] [facility] [id number] [place] [address]- 6162 Apr, [facility] [place] [address] [id number] [place] 129958165 Apr, [facility] [place] [facility] [address] [facility] [id number] [place] [address]- 1877 27 Mar, 2013 [facility] [place] [facility] [address] [facility] [id number] [address]- 7238 Mar, [facility] [place] [address] [id number] [place] [id number] 17 Mar, 2013 [facility] [place] [address] [id number] [place] [id number] 17 Mar, 2013 [facility] [place] [address] [id number] [place]ILL[place] [id number] 16 Mar, 2013 [facility] [place] [address] [id number] [place] [id number] Feb, [facility] [place] [address] [id number] [place] 342665413 Feb, [facility] [place] [address] [id number] [place] [id number] Feb, [facility] [address] [facility] [id number] [place] 12873412- 0283 Feb, [facility] [place] [address] [id number] [place] [id number] Feb, [facility] [place] [address] [id number] [place] [id number] Feb, [facility] [place] [address] [id number] [place] [id number] Feb, [facility] [place] [address] [id number] [place] 848600613 Feb, [facility] [place] [address] [id number] [place] 432847690 Feb, [facility] [place] [address] [id number] [place] [id number] Jan, [facility] [place] [address] [id number] [place] 677772028 Jan, [facility] [place] [address] [id number] [place] 912291798 Jan, [facility] [place] [address] [id number] [place] 885784498 Jan, [facility] [place] [address] [id number] [place] [id number] Jan, [facility] [address] [facility] [id number] [place] 28687041- 5648 Jan, [facility] [place] [address] [id number] [place] [id number] Jan, [facility] [place] [address] [id number] [place] [id number] Jan, [facility] [place] [address] [id number] [place] 663132755 Dec, [facility] [place] [address] [id number] [place] [id number] November, [facility] [place] [address] [id number] [place] [id number] November, [facility] [place] [address] [id number] [place] [id number] November, [facility] [place] [address] [id number] [place] [id number] November, [facility] [place] [address] [id number] [place] [id number] November, [facility] [place] [address] [id number] [place] 512720035 November, [facility] [place] [address] [id number] [place] 975350548 Jul, [facility] [place] [address] [id number] [place] 916329096 Jul, [facility] [place] [address] [id number] [place] [id number] Jul, [facility] [place] [address] [id number] [place] [id number] Jun, [facility] [id number] [address] Jun, [facility] [place] [address] [id number] [place] [id number] May, [facility] [id number] [address] May, [facility] [place] [address] [id number] [place] [id number] May, [facility] [place] [facility] [address] [facility] [id number] [place] [address] [address] May, [facility] [place] [address] [id number] [place] [id number] May, [facility] [place] [facility] [id number] [address] May, [facility] [place] [address] [id number] [place] [id number] Apr, [facility] [place] [facility] [id number] [address] Apr, [facility] [address] [facility] [id number] [place] [address] Apr, [facility] [place] [address] [id number] [place] [id number] Apr, [facility] [place] [address] [id number] [place] [id number] Apr, [facility] [address] [facility] [id number] [place] [address] Apr, [facility] [address] [facility] [id number] [place] [address] Apr, [facility] [place] [address] [id number] [place] [id number] Apr, [facility] [address] [facility] [id number] [place] [address] Apr, [facility] [place] [address] [id number] [place] [id number] Apr, [facility] [place] [address] [id number] [place] [id number] Apr, [facility] [place] [address] [id number] [place] [id number] Mar, [facility] [place] [address] [id number] [place] [id number] Feb, [facility] [place] [address] [id number] [place] [id number] Jan, [facility] [place] [address] [id number] [place] [id number] Dec, [facility] [place] [address] [id number] [place] [id number] Dec, [facility] [place] [address] [id number] [place] [id number] Dec, [facility] [place] [address] [id number] [place] [id number] Dec, [facility] [place] [address] [id number] [place] [id number] Dec, [facility] [place] [address] [id number] [place] [id number] November, [facility] [place] [address] [id number] [place] [id number] November, [facility] [place] [address] [id number] [place] [id number] November, [facility] [address] [address] November, [facility] [place] [address] [id number] [place] [id number] November, [facility] [place] [address] [id number] [place] [id number] November, [facility] [place] [address] [id number] [place] [id number] Oct, [facility] [place] [address] [id number] [place] [id number] Oct, [facility] [place] [address] [id number] [place] [id number] Oct, [facility] [place] [address] [id number] [place] [id number] Oct, [facility] [place] [address] [id number] [place] [id number] Oct, [facility] [place] [address] [id number] [place] [id number] Oct, [facility] [place] [address] [id number] [place] [id number] Sep, [facility] [place] [address] [id number] [place] [id number] Aug, [facility] [place] [address] [id number] [place] [id number] Aug, [facility] [place] [address] [id number] [place] [id number] Jul, [facility] [id number] [address] Jun, [facility] [id number] [address] Jun, [facility] [place] [facility] [address] [id number] [place] [address] Jun, [facility] [place] [facility] [address] [id number] [place] [address] Jun, [facility] [place] [facility] [address] [id number] [place] [address] May, [facility] [place] [facility] [address] [id number] [place] [address] May, [facility] [place] [facility] [address] [id number] [place] [address] Apr, [facility] [place] [facility] [address] [id number] [place] [address] Apr, [facility] [place] [facility] [address] [id number] [place] [address] Apr, [facility] [place] [facility] [address] [id number] [place] [address] Feb, [facility] [place] [facility] [address] [id number] [place] [address] Aug, [facility] [place] [facility] [address] [id number] [place] [address] Jul, [facility] [place] [facility] [address] [id number] [place] [address] Jun, [facility] [place] [facility] [address] [id number] [place] [address] May, [facility] [place] [facility] [address] [id number] [place] [address] May, [facility] [place] [facility] [address] [id number] [place] [address] May, [facility] [place] [facility] [address] [id number] [place] [address] May, [facility] [place] [facility] [id number] [address] May, [facility] [id number] [address] Aug, [facility] [id number] [address] Jun, [facility] [id number] [address] Jun, [facility] [id number] [address] Jun, [facility] [id number] [place] [address] May, [facility] [id number] [place] [address] Apr, [facility] [id number] [place] [address] Apr, [facility] [id number] [address] Apr, [facility] [id number] [place] [id number] Jan, [facility] [id number] [address] Oct, [facility] [id number] [address] May, [facility] [id number] [address] May, IMMUNIZATIONS No Known Immunizations SOCIAL HISTORY Never Assessed REASON FOR VISIT PA for Lidocaine patch PLAN OF CARE VITAL SIGNS MEDICATIONS Unknown [...] Dialysis [facility] 2012 -Dr. Simon now [facility] Medical History Colonoscopy (polyps 2 ) [...]
--- OUTSIDE RECORDS SUMMARY | 2017-12-22 19:42 | XMS REPORT ---
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 Active 829742342 Problem 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 Active 491631237568949 Problem Chronic kidney disease, stage 4 (severe) N18.4 Active 366299651 Problem Type 2 diabetes mellitus with hyperglycemia E11.65 Active 048183125123234 Problem Psoriasis of scalp L40.9 Active 435723093 Problem Paresthesia of right upper extremity R20.2 Active 66307969 Problem Diabetic polyneuropathy associated with type 2 diabetes mellitus E11.42 Active 90787211 Problem Gastroesophageal reflux disease without esophagitis K21.9 Active 625710247 Problem Anemia in other chronic diseases classified elsewhere D63.8 Active 632414903 Problem Type 2 diabetes mellitus with other diabetic kidney complication E11.29 Active 018413246 Problem Depression, unspecified depression type F32.9 Active 38243873 Problem History of DVT (deep vein thrombosis) Z86.718 Active 776632636 Problem Chronic obstructive pulmonary disease, unspecified COPD type J44.9 Active 43072936 Problem 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 Active 562713026 Problem Oxygen desaturation during sleep G47.34 Active 410078424 Problem Essential hypertension I10 Active 32049848 ALLERGIES No Information ENCOUNTERS Encounter Location Date Diagnosis [facility] [address] [facility] [id number] [id number] Oct, [place] [address], [place] [address] Oct, [place] [address] [place] [id number] [place] [address] 77370- 1361 Sep, Type 2 diabetes mellitus with other diabetic kidney complication E11.29 and Chronic obstructive pulmonary disease, unspecified COPD type J44.9 [place] [address] [place] [id number] [place] [address] 26336- 5438 15 Aug, 2017 Type 2 diabetes mellitus with other diabetic kidney complication E11.29 [place] [address] [place] [id number] [place] [address] 08760- 7923 12 Aug, 2017 Gastroesophageal reflux disease without esophagitis K21.9 ; 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 ; Chronic pain syndrome G89.4 ; Essential hypertension I10 and Type 2 diabetes mellitus with other diabetic kidney complication E11.29 [place] [address] [place] [id number] [address] 0[address] 08 Aug, 2017 Chronic pain syndrome G89.4 [place] [address] [place] [id number] [place] [address] 77349- 6205 Aug, Type 2 diabetes mellitus with other diabetic kidney complication E11.29 [place] [address], [place] [address] 0[address] Jul, Diabetic polyneuropathy associated with type 2 diabetes mellitus E11.42 [place] [address], [place] [address] 1369 Jul, Primary insomnia F51.01 [place] [address], [place] [address] 7[address] Jul, [place] [address] [place] [id number] [place] [address] 35536- 3070 Jul, Type 2 diabetes mellitus with other diabetic kidney complication E11.29 and Chronic obstructive pulmonary disease, unspecified COPD type J44.9 [place] [address] [place] [id number] [place] [address] 31113- 8262 Jul, Type 2 diabetes mellitus with other diabetic kidney complication E11.29 [place] [address] [place] [address] 38006- 1166 Jun, Type 2 diabetes mellitus with other diabetic kidney complication E11.29 [place] [address] [place] [id number] [address] 5[address] Jun, [place] [address] [place] [id number] [place] [address] 12380- 5820 Jun, Chronic obstructive pulmonary disease, unspecified COPD type J44.9 [place] [id number] [place] [address] 11234- 5064 May, Type 2 diabetes mellitus with other diabetic kidney complication E11.29 [place] [address] [place] [id number] [place] [address] 92237- 5797 May, 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 and Essential hypertension I10 [place] [address] [place] [id number] [place] [address] 90062- 1982 May, Anemia in other chronic diseases classified elsewhere D63.8 ; Chronic obstructive pulmonary disease, unspecified COPD type J44.9 ; Oxygen desaturation during sleep G47.34 ; Sleep apnea in adult G47.33 and Supplemental oxygen dependent Z99.[address] [place] [address] 59298- 9010 May, Type 2 diabetes mellitus with other diabetic kidney complication E11.29 ; Essential hypertension I10 ; Chronic pain syndrome G89.4 ; BMI 40.0-44.9, adult Z68.41 ; Gastroesophageal reflux disease without esophagitis K21.9 ; custodial current use of anticoagulant Z79.01 ; custodial 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 ; Diabetic polyneuropathy associated with type 2 diabetes mellitus E11.42 ; Edema of both legs R60.0 and Supplemental oxygen dependent Z99.81 [place] [address], [place] [address] 39[address] May, [place] [address] [place] [id number] [place] [address] 12792- 2481 May, Essential hypertension I10 and Gastroesophageal reflux disease without esophagitis K21.9 [facility] [address] [place] [id number] [place] [address] 08043- 6302 May, [facility] [address] [place] [id number] [place] [address] 15054- 7077 May, Type 2 diabetes mellitus with other diabetic kidney complication E11.29 and custodial current use of anticoagulant Z79.01 [place] [address] [place] [id number] [place] [address] 31447- 2592 Apr, Chronic pain syndrome G89.4 and Essential hypertension I10 [place] [address] 26561- 3826 Apr, Type 2 diabetes mellitus with other diabetic kidney complication E11.29 [place] [address] 36208- 9868 Apr, Type 2 diabetes mellitus with other diabetic kidney complication E11.29 [place] [address] [place] [id number] [place] [address] 79883- 0916 Apr, Essential hypertension I10 [place] [address] [place] [id number] [place] [address] 19201- 6245 Apr, Gastroesophageal reflux disease without esophagitis K21.9 [place] [address] [place] [id number] [place] [address] 83931- 2406 Apr, Type 2 diabetes mellitus with other diabetic kidney complication E11.29 [facility] [address] [place] [id number] [place] [address] 89164- 8710 Apr, Type 2 diabetes mellitus with other diabetic kidney complication E11.29 and custodial current use of anticoagulant Z79.01 [facility] [address] [place] [id number] [place] [address] 77196- 6504 Mar, Encounter for immunization Z23 and Preoperative examination Z01.818 [place] [address] [place] [id number] [place] [address] 51763- 3904 Mar, [place] [address] [place] [address] 88576- 1648 Mar, Type 2 diabetes mellitus with other diabetic kidney complication E11.29 [facility] [address] [place] [id number] [place] [address] 30211- 0100 Mar, Type 2 diabetes mellitus with other diabetic kidney complication E11.29 [place] [address] [place] [id number] [place] [address] 65180- 0629 Mar, Gastroesophageal reflux disease without esophagitis K21.9 [place] [address] [place] [id number] [place] [address] 98119- 0360 Mar, Essential hypertension I10 [place] [address] [place] [id number] [place] [address] 68582- 7017 Feb, custodial current use of anticoagulant Z79.01 [place] [address] [place] [id number] [place] [address] 38799- 9337 Feb, Type 2 diabetes mellitus with other diabetic kidney complication E11.29 [place] [address] [place] [id number] [place] [address] 05350- 1314 Feb, Type 2 diabetes mellitus with other diabetic kidney complication E11.29 [place] [address] [place] [id number] [place] [address] 81213- 2793 Feb, Type 2 diabetes mellitus with other diabetic kidney complication E11.29 [place] [address] [place] [id number] [place] [address] 49251- 2509 Feb, Gastroesophageal reflux disease without esophagitis K21.9 [place] [address] [place] [id number] [place] [address] 22298- 1994 Feb, Type 2 diabetes mellitus with other diabetic kidney complication E11.29 [place] [address] [place] [id number] [place] [address] 70682- 7544 Feb, custodial current use of anticoagulant Z79.01 [place] [address] [place] [id number] [place] [address] 54031- 7829 Jan, Type 2 diabetes mellitus with other diabetic kidney complication E11.29 [facility] [address], [place] [address] 3711 Jan, 2017 Type 2 diabetes mellitus with other diabetic kidney complication E11.29 [facility] [address], [place] [address]- 2983 Jan, Chronic pain syndrome G89.4 [facility] [address] [place] [id number], [place] [address] 5329 Jan, [facility] [address] [place] [id number], [place] [address] 6601 Jan, [facility] [address], [place] [address]- 4784 Jan, [facility] [address], [place] [address]- 6812 Jan, [facility] [address], [place] [address]- 5631 Jan, Primary insomnia F51.01 ; Type 2 diabetes mellitus with other diabetic kidney complication E11.29 ; Chronic pain syndrome G89.4 and Essential hypertension I10 [facility] [address], [place] [address]- 8969 Jan, Primary insomnia F51.01 [facility] [address], [place] [address]- 1820 Jan, Type 2 diabetes mellitus with other diabetic kidney complication E11.29 [facility] [address], [place] [address]- 4407 Jan, [facility] [address], [place] [address]- 7448 Jan, Chronic obstructive pulmonary disease, unspecified COPD type J44.9 [facility] [address], [place] [address]- 5302 Jan, Essential hypertension I10 ; Type 2 diabetes mellitus with other diabetic kidney complication E11.29 ; Chronic obstructive pulmonary disease, unspecified COPD type J44.9 ; Chronic kidney disease, stage 4 (severe) N18.4 ; Right carpal tunnel syndrome G56.01 ; 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 ; farm field manager (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 and Diabetic polyneuropathy associated with type 2 diabetes mellitus E11.42 [facility] [address] [place] [id number] [place] [address] 94656- 8757 Jan, Gastroesophageal reflux disease without esophagitis K21.9 [facility] [address] [place] [id number] [place] [address] 84093- 3442 Dec, [facility] [address] 57884- 7001 Dec, [facility] [address] [place] [id number] [place] [address] 15214- 3577 Dec, 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 ; Chronic pain syndrome G89.4 and Essential hypertension I10 [facility] [address] [place] [id number] [place] [address] 32278- 2242 Dec, [facility] [address] [place] [id number] [place] [address] 45822- 2998 Dec, Type 2 diabetes mellitus with other diabetic kidney complication E11.29 [facility] [address] [place] [id number] [address]- 7592 Dec, [facility] [address] [place] [id number] [place] [address] 39995- 3879 Dec, Gastroesophageal reflux disease without esophagitis K21.9 [facility] [address] [place] [id number] [place] [address] 61320- 1123 November, Type 2 diabetes mellitus with other diabetic kidney complication E11.29 [facility] [address] [place] [id number] [place] [address] 21090- 2444 November, [facility] [address] [place] [id number] [place] [address] 74383- 4136 November, Type 2 diabetes mellitus with other diabetic kidney complication E11.29 [facility] [address], [place] [address]- 1553 November, [facility] [address] [place] [id number] [place] [address] 25761- 0778 November, Type 2 diabetes mellitus with other diabetic kidney complication E11.29 [facility] [address] [place] [id number] [place] [address] 38537- 5037 November, [facility] [address] [place] [id number] [place] [address] 40577- 6004 Oct, Essential hypertension I10 [place] [address] [place] [id number] [place] [address] 44240- 6156 Oct, Psoriasis of scalp L40.9 [facility] [address] [place] [id number] [place] [address] 82055- 2333 Oct, Essential hypertension I10 and Chronic pain syndrome G89.4 [facility] [address] [place] [id number] [place] [address] 01631- 1337 Oct, [facility] [address] [place] [id number] [place] [address] 66779- 1845 Sep, Type 2 diabetes mellitus with other diabetic kidney complication E11.29 [facility] [address] [place] [id number] [place] [address] 10666- 7865 Sep, [facility] [address] [place] [id number] [place] [address] 86351- 3671 Sep, Type 2 diabetes mellitus with other diabetic kidney complication E11.29 [facility] [address], [place] [address]- 5182 Sep, Type 2 diabetes mellitus with other diabetic kidney complication E11.29 [facility] [address] [place] [id number] [place] [address] 19958- 5785 Sep, Type 2 diabetes mellitus with other diabetic kidney complication E11.29 ; Chronic kidney disease, stage 4 (severe) N18.4 ; Chronic obstructive pulmonary disease, unspecified COPD type J44.9 ; Iron deficiency anemia due to chronic blood loss D50.0 ; 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 ; Gastroesophageal reflux disease without esophagitis K21.9 ; Essential hypertension I10 ; Primary insomnia F51.01 ; Depression, unspecified depression type F32.9 ; Chronic pain syndrome G89.4 ; Wrist pain, right M25.531 ; Paresthesia of right upper extremity R20.2 and Psoriasis of scalp L40.9 [place] [id number] [place] [address] 85307- 9410 Sep, [place] [id number] [place] [address] 42162- 1320 Aug, Essential hypertension I10 [address] 34550- 5030 Aug, History of DVT (deep vein thrombosis) Z86.[address] 75972- 0450 Aug, [place] [id number] [place] [address] 98966- 7262 Jul, [address] 50210- 2736 Jul, [place] [id number] [place] [address] 74135- 3800 Jul, custodial current use of anticoagulant Z79.01 ; Chronic pain syndrome G89.4 and Chronic kidney disease, stage 4 (severe) N18.4 [place] [id number] [place] [address] 60663- 7878 Jul, [address] 43516- 0147 Jul, [place] [id number] [place] [address] 39865- 8052 Jul, [address] 17924- 1053 Jul, [place] [address], [place] [address]- 0772 Jul, [place] [id number] [place] [address] 18300- 9822 Jul, Type 2 diabetes mellitus with other diabetic kidney complication E11.29 [place] [id number] [place] [address] 20402- 8784 Jul, History of DVT (deep vein thrombosis) Z86.718 [place] [address] [place] [id number] [place] [address] 12532- 8443 Jun, [address] 06281- 8619 Jun, History of DVT (deep vein thrombosis) Z86.718 [place] [id number] [place] [address] 65667- 2607 Jun, Post traumatic stress disorder (PTSD) F43.10 [place] [id number] [place] [address] 34517- 8447 07 Jun, 2016 Type 2 diabetes mellitus with other diabetic kidney complication E11.29 ; Diabetic polyneuropathy associated with type 2 diabetes mellitus E11.42 ; Iron deficiency anemia due to chronic blood loss D50.0 ; Chronic obstructive pulmonary disease, unspecified COPD type J44.9 ; 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 [id number] [place] [address]- 2793 May, [facility] [address] [facility] [id number] [place] [address]- 9886 May, [facility] [address] [facility] [id number] [place] [address]- 0646 May, [facility] [address] [facility] [id number] [place] [address], [place] [address] 2541 May, Anemia in other chronic diseases classified elsewhere D63.8 [facility] [address] [facility] [id number] [place] [address], [place] [address]- 7006 May, [facility] [address] [place] [address], [place] [address]- 4337 Apr, [facility] [address] [place] [address], [place] [address]- 3319 27 Mar, 2016 Dermatofibroma D23.9 [facility] [address] [address]- 1096 20 Mar, 2016 [facility] [address] [place] [address], [place] [address] 2541 14 Mar, 2016 Chronic pain syndrome G89.4 [facility] [address] [place] [address] 2546 09 Mar, 2016 [facility] [address] [place] [address] 2546 Mar, [facility] [address] [place] [address] 2546 Mar, [facility] [address] [place] [place] [address] 2546 Feb, [facility] [address] [facility] [id number] [place] [address] 2546 Feb, [facility] [address] [address]- 9300 Feb, [place] [address], [place] [address]- 5617 Feb, [place] [address] [place] [id number] [place] [address] 35021- 7764 Feb, [place] [id number] [place] [address] 89171- 6187 Feb, [place] [address] [place] [id number] [place] [address] 26873- 7720 Feb, Type 2 diabetes mellitus with other diabetic kidney complication E11.29 ; Diabetic polyneuropathy associated with type 2 diabetes mellitus E11.42 ; Iron deficiency anemia due to chronic blood loss D50.0 ; Chronic obstructive pulmonary disease, unspecified COPD type J44.9 ; 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 ; History of DVT (deep vein thrombosis) Z86.718 ; Chronic pain syndrome G89.4 ; Oxygen desaturation during sleep G47.34 ; Sleep apnea in adult G47.33 ; Gastroesophageal reflux disease without esophagitis K21.9 ; Essential hypertension I10 ; Primary insomnia F51.01 ; Depression, unspecified depression type F32.9 and Renal failure, chronic, stage 4 (severe) N18.4 [place] [id number] [place] [address] 75438- 2544 Feb, Skin tags, multiple acquired L91.8 [place] [address], [place] [address]- 5804 Jan, [facility] [address] [place] [address] [id number] Jan, Dental examination Z01.20 [place] [address] [place] [address] 22204- 4256 Jan, [place] [address] [place] [id number] [place] [address] 06025- 6523 Jan, Type 2 diabetes mellitus with other diabetic kidney complication E11.29 ; Diabetic polyneuropathy associated with type 2 diabetes mellitus E11.42 ; Iron deficiency anemia due to chronic blood loss D50.0 ; Chronic obstructive pulmonary disease, unspecified COPD type J44.9 ; 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 ; [...] Renal failure, chronic, stage 4 (severe) N18.4 [facility] [address] [place] [address] 07665- 8976 Dec, Diabetes type 2, uncontrolled E11.65 [place] [address] 38719- 3636 Dec, [place] [address] 33390- 3790 Dec, Type 2 diabetes mellitus with other diabetic kidney complication E11.29 ; Diabetic polyneuropathy associated with type 2 diabetes mellitus E11.42 ; Iron deficiency anemia due to chronic blood loss D50.0 ; Chronic obstructive pulmonary disease, unspecified COPD type J44.9 ; 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 ; History of DVT (deep vein thrombosis) Z86.718 ; Chronic pain syndrome G89.4 ; Oxygen desaturation during sleep G47.34 ; Sleep apnea in adult G47.33 ; Gastroesophageal reflux disease without esophagitis K21.9 ; Essential hypertension I10 ; Primary insomnia F51.01 and Depression, unspecified depression type F32.9 [facility] [address] [place] [address] [id number] Dec, Dental caries K02.9 [facility] [address] [facility] [id number] [place] [address] [id number] Dec, [facility] [address] [place] [id number] [place] [address] [id number] Dec, Dental examination Z01.20 [facility] [address] [place] [address] [id number] November, Dental examination Z01.20 and Dental caries K02.9 [facility] [id number] [id number] Oct, [facility] [id number] [place] [address] [id number] Oct, [facility] [id number] [place] [address] [id number] Sep, [facility] [id number] [place] [address] [id number] Sep, [facility] [id number] [place] [address] [id number] Sep, [facility] [id number] [place] [address] [id number] Sep, Other chronic pain 338.29 [facility] [address] [id number] [place] [address] [id number] Aug, Diabetes type 2, uncontrolled E11.65 and Morbid obesity due to excess calories E66.01 [facility] [address] [id number] [place] [address] [id number] Aug, Hair loss L65.9 [facility] [id number] [place] [address] [id number] Aug, [facility] [id number] [place] [address] [id number] Jul, [facility] [id number] [place] [address] [id number] Jul, [facility] [id number] [place] [address] [id number] Jun, [facility] [id number] [place] [address] [id number] Jun, Hair loss L65.9 and Disorder of the skin and subcutaneous tissue, unspecified L98.9 [facility] [id number] [place] [address] [id number] May, Type 2 diabetes mellitus with other diabetic kidney complication E11.29 ; Type 2 diabetes mellitus with hyperglycemia E11.65 ; Morbid obesity due to excess calories E66.01 and Essential hypertension I10 [facility] [id number] [place] [address] [id number] May, Diabetes type 2, uncontrolled E11.65 ; Encounter for immunization Z23 and Morbid obesity due to excess calories E66.01 [address] [id number] [place] [address] [id number] May, [facility] [id number] [place] [address] 97246- 2070 Apr, [place] [id number] [place] [address] [id number] Apr, Hyperglycemia R73.[address] [id number] Apr, [address] [id number] Apr, Depression F32.9 ; Encounter for immunization Z23 ; Hyperglycemia R73.9 and Anemia in other chronic diseases classified elsewhere D63.8 [facility] [id number] [place] [address] [id number] Mar, [address] [place] [id number] [place] [address] [id number] Feb, Positive occult stool blood test 792.[address] [id number] Feb, Depression 311 ; Other chronic pain 338.29 and Diabetes with renal manifestations, type II or unspecified type, not stated as uncontrolled 250.40 [facility] [address]00565100[place] [address] Feb, Occult blood in stools 792.[address] [place] [address] [id number] Feb, Anemia 285.9 ; Occult blood positive stool 792.1 ; Unspecified essential hypertension 401.9 and Other chronic pain 338.29 [address] [place] [address] [id number] Feb, [address] [place] [address] [id number] Feb, Anemia 285.9 [id number] [place] [address] [id number] Feb, [facility] [place] [address] [id number][place] [id number] Feb, [facility] [id number] [place] [address] [id number] Feb, Diabetes with renal manifestations, type II or unspecified type, not stated as uncontrolled 250.40 ; Other chronic pain 338.29 ; Unspecified essential hypertension 401.9 ; Anemia 285.9 and Depression 311 [facility] [place] [id number], [place] [id number] Jan, [facility] [id number], [place] [id number] Jan, Anemia 285.9 and Follow up V67.9 [facility] [id number], [place] [id number] Jan, [facility] [id number] [place] [address] [id number] Jan, [facility] [id number], [place] [id number] Jan, [facility] [id number], [place] [id number] Dec, [facility] [id number] [place] [address] 91425- 8496 Oct, [facility] [id number] [place] [address] 97735- 7002 Oct, [facility] [id number] [place] [address] 68158 2546 Sep, [facility] [address] [id number], [place] [id number] Sep, [facility] [id number] [place] [address] 77009- 1008 Sep, [facility] [address] [id number], [place] [id number] Aug, [facility] [id number] [place] [address] 14346- 4706 Aug, [facility] [place] [facility] [address] [facility] [id number], [place] [address]- 3492 Aug, [facility] [place] [address] [facility] [id number] [place] [id number] Aug, 2014 [facility] [place] [facility] [address] [id number] [address]- 5526 Aug, [facility] [place] [facility] [address] [address]- 9956 Aug, 2014 [facility] [place] [address] [facility] [id number] [place] [id number] Aug, [facility] [place] [facility] [address] [address]- 7406 Aug, [facility] [place] [address] [id number], [place] [id number] Jul, [facility] [place] [facility] [address] [address]- 8456 Jul, [facility] [place] [facility] [address]00565100[place], [place] [address]- 9343 Jul, [facility] [place] [address] [facility] [id number] [place] [id number] Jul, [facility] [place] [facility] [address]00565100[place], [place] [address]- 0316 Jul, [facility] [place] [id number], [place] 104815455 Jul, [facility] [place] [facility] [address]00565100[place], [place] [address]- 4027 Jul, [facility] [place] [address] [facility] [id number] [place] 220547296 Jun, [facility] [place] [address] [facility] [id number] [place] [id number] Jun, [facility] [place] [facility] [id number] [address]- 5505 Jun, [facility] [place] [facility] [id number], [place] [address]- 2746 Jun, [facility] [place] [address] [id number] [place] [id number] Jun, [facility] [place] [facility] [address] [facility] [id number] [place] [address]- 4966 Jun, [facility] [place] [address] [id number], [place] [id number] May, [facility] [place] [facility] [address] [facility] [id number], [place] [address]- 5661 May, [facility] [place] [facility] [address] [facility] [id number], [place] [address]- 1330 May, [facility] [place] [address] [id number] [place] [id number] Apr, [facility] [place] [facility] [address] [id number], [place] [address]- 5439 Apr, [facility] [place] [address] [id number], [place] [id number] Apr, [facility] [place] [address] [id number], [place] 339313434 Apr, [facility] [place] [facility] [address] [facility] [id number], [place] [address]- 8687 Apr, [facility] [place] [facility] [address] [facility] [id number], [place] 58205141- 3842 Apr, [facility] [place] [address] [id number], [place] 215230747 Mar, [facility] [place] [facility] [address] [facility] [id number], [place] [address]- 5248 18 Mar, 2014 [facility] [place] [address] [id number], [place] 785962042 Mar, [facility] [place] [facility] [address] [facility] [id number], [place] [address]- 5680 17 Mar, 2014 [facility] [place] [address] [facility] [id number], [place] [id number] 16 Mar, 2014 [facility] [place] [facility] [address] [facility] [id number], [place] [address]- 5366 Mar, [facility] [place] [address] [id number] [place] [id number] Mar, [facility] [place] [facility] [address] [id number] [place] [address]- 1176 Mar, [facility] [place] [address] [id number] [place] [id number] Mar, [facility] [place] [facility] [address] [id number] [place] [address]- 3393 Mar, [facility] [place] [address] [id number] [place] [id number] Feb, [facility] [place] [facility] [address] [facility] [id number] [place] [address]- 8826 Feb, [facility] [place] [address] [id number] [place] 065014184 Jan, [facility] [place] [facility] [address] [facility] [id number], [place] [address]- 7185 Jan, [facility] [place] [address] [facility] [id number] [place] [id number] Jan, [facility] [place] [facility] [address] [facility] [id number], [place] [address]- 6295 Jan, [facility] [place] [address] [id number] [place] [id number] Jan, [facility] [place] [facility] [address] [facility] [id number], [place] [address]- 2070 Jan, [facility] [place] [facility] [address] [facility] [id number], [place] [address]- 8186 Dec, [facility] [place] [facility] [address] [facility] [id number][place] [address]- 4008 Dec, [facility] [place] [address] [id number] [place] [id number] November, [facility] [place] [facility] [address] [facility] [id number] [place] [address]- 8742 November, [facility] [place] [address] [facility] [id number] [place] [id number] November, [facility] [address] [id number] [place] [address]- 1004 November, [facility] [address] [facility] [id number] [place] 077436124 Oct, [facility] [place] [facility] [address] [facility] [id number] [place] [address]- 8763 Oct, [facility] [place] [facility] [address] [facility] [id number] [place] [address]- 5398 Oct, [facility] [place] [facility] [address] [facility] [id number] [place] [address]- 3128 Oct, [facility] [place] [facility] [address] [id number] [address]- 9072 Oct, [facility] [place] [facility] [address] [id number] [address]- 0435 Oct, [facility] [address] [facility] [id number], [place] [id number] Sep, [facility] [address] [facility] [id number], [place] 013603861 Sep, [facility] [place] [facility] [address] [id number], [place] [address]- 0699 Sep, [facility] [place] [facility] [address] [facility] [id number], [place] [address]- 8799 Sep, [facility] [address] [facility] [id number], [place] [id number] Sep, [facility] [place] [facility] [address] [facility] [id number] [place] [address]- 9300 Sep, [facility] [place] [facility] [address] [facility] [id number] [place] [address]- 5236 Aug, [facility] [place] [facility] [address] [facility] [id number], [place] [address]- 0669 Aug, [facility] [place] [address] [facility] [id number], [place] 831746395 Aug, [facility] [place] [address] [facility] [id number] [place] 515299212 Aug, [facility] [place] [facility] [address] [facility] [id number][place] [address]- 2546 Aug, [facility] [place] [address] [facility] [id number] [place] [id number] Aug, [facility] [place] [facility] [address] [facility] [id number][place] [address]- 2546 Aug, [facility] [place] [address] [facility] [id number] [place] [id number] Aug, [facility] [place] [facility] [address] [id number] [address]- 6676 Aug, [facility] [place] [address] [facility] [id number] [place] 939822171 Aug, [facility] [place] [facility] [address]00565100[place] [address]- 2536 Aug, [facility] [place] [address] [facility] [id number], [place] [id number] Aug, [facility] [place] [facility] [address]00565100[place], [place] [address]- 4706 Aug, [facility] [place] [facility] [address] [facility] [id number] [address]- 4066 Jul, [facility] [place] [address] [facility] [id number], [place] 163499219 Jun, [facility] [place] [facility] [address] [facility] [id number], [place] [address]- 9376 Jun, [facility] [place] [facility] [address] [facility] [id number] [address]- 0886 Jun, [facility] [place] [facility] [address] [facility] [id number] [address]- 0216 Jun, [facility] [place] [address] [facility] [id number], [place] 212393537 Jun, [facility] [place] [facility] [address] [id number] [address]- 8873 Jun, [facility] [place] [facility] [address] [facility] [id number] [address]- 9187 Jun, [facility] [place] [address] [facility] [id number], [place] 101329931 Jun, [facility] [place] [facility] [address] [facility] [id number], [place] [address]- 7366 Jun, [facility] [place] [facility] [address] [facility] [id number], [place] [address]- 0883 May, [facility] [place] [address] [facility] [id number], [place] 946014013 May, [facility] [place] [facility] [address] [facility] [id number], [place] [address]- 4707 May, [facility] [place] [facility] [address] [facility] [id number], [place] [address]- 4874 May, [facility] [place] [facility] [address] [facility] [id number], [place] [address]- 5482 May, [facility] [place] [facility] [address] [facility] [id number], [place] [address]- 0500 May, [facility] [place] [address] [id number], [place] 671412524 May, [facility] [place] [facility] [address] [facility] [id number], [place] [address]- 0510 May, [facility] [place] [address] [facility] [id number], [place] 909261906 May, [facility] [place] [facility] [address] [facility] [id number], [place] [address]- 9660 May, [facility] [place] [address] [facility] [id number], [place] [id number] Apr, [facility] [place] [facility] [address] [facility] [id number], [place] [address]- 9109 Apr, [facility] [place] [facility] [address] [facility] [id number], [place] [address]- 9466 Apr, [facility] [address] [facility] [id number], [place] 370085864 Apr, [facility] [place] [facility] [address] [facility] [id number], [place] [address]- 1141 Apr, [facility] [address] [facility] [id number], [place] [address]- 7841 Apr, [facility] [address] [facility] [id number], [place] 952365953 Apr, [facility] [place] [facility] [address] [facility] [id number], [place] [address]- 3454 Apr, [facility] [place] [facility] [address] [id number], [place] [address]- 9620 Apr, [facility] [address] [id number], [place] [address]- 5665 Apr, [facility] [address] [id number], [place] 176304591 Apr, [facility] [place] [facility] [address] [facility] [id number], [place] [address]- 3683 Apr, [facility] [address] [id number], [place] 601371612 Apr, [facility] [place] [facility] [address] [facility] [id number], [place] [address]- 7892 Apr, [facility] [id number], [place] 726139020 Apr, [facility] [place] [facility] [address] [facility] [id number] [address]- 2919 Apr, [facility] [place] [facility] [address] [facility] [id number], [place] [address]- 2923 Apr, [facility] [place] [facility] [address] [facility] [id number], [place] [address]- 5576 Apr, [facility] [address] [facility] [id number], [place] 607157862 Apr, [facility] [place] [facility] [address] [facility] [id number], [place] [address]- 2244 Mar, [facility] [address] [facility] [id number], [place] [address]- 0626 Mar, [facility] [place] [address] [id number] [place] 857709562 Mar, [facility] [place] [address] [id number] [place] 530621493 Mar, [facility] [place] [address] [id number] [place] 063392331 Mar, [facility] [place] [address] [id number] [place] 163178598 Feb, [facility] [place] [address] [id number] [place] 491475849 Feb, [facility] [place] [address] [id number] [place] 917561851 Feb, [facility] [address] [facility] [id number], [place] [address]- 6112 Feb, [facility] [place] [address] [id number] [place] 517521274 Feb, [facility] [place] [address] [id number] [place] 584503596 Feb, [facility] [place] [address] [id number] [place] 085651843 Feb, [facility] [place] [address] [id number] [place] 367494148 Feb, [facility] [place] [address] [id number] [place] 065493668 Feb, [facility] [place] [address] [id number] [place] 356959631 Jan, [facility] [place] [address] [id number] [place] 295698351 Jan, [facility] [place] [address] [id number] [place] 358423796 Jan, [facility] [place] [address] [id number] [place] 200488301 Jan, [facility] [place] [address] [id number] [place] 864793342 Jan, [facility] [address] [facility] [id number], [place] [address]- 1554 Jan, [facility] [place] [address] [id number] [place] 132091729 Jan, [facility] [place] [address] [id number] [place] 617475805 Jan, [facility] [place] [address] [id number] [place] 796854159 Dec, [facility] [place] [address] [id number] [place] 792039080 November, [facility] [place] [address] [id number] [place] 670381596 November, [facility] [place] [address] [id number] [place] 711458550 November, [facility] [place] [address] [id number] [place] 500047839 November, [facility] [place] [address] [id number] [place] 120435285 November, [facility] [place] [address] [id number] [place] 015749950 November, [facility] [place] [address] [id number] [place] 366834132 Jul, [facility] [place] [address] [id number] [place] 510590049 Jul, [facility] [place] [address] [id number] [place] 069193382 Jul, [facility] [place] [address] [id number] [place] 932491104 Jun, [facility] [address] [facility] [id number], [place] [address]- 1412 Jun, [facility] [place] [address] [id number] [place] 556034377 May, [facility] [address] [facility] [id number] [address]- 4601 May, [facility] [place] [address] [id number], [place] 979583502 May, [facility] [address] [facility] [id number], [place] [address]- 1919 May, [facility] [place] [address] [id number], [place] 199526776 May, [facility] [address] [facility] [id number], [place] [address]- 0201 May, [facility] [address] [id number], [place] 127807806 Apr, [facility] [address] [facility] [id number], [place] [address]- 9205 Apr, [facility] [place] [facility] [address] [facility] [id number], [place] [address]- 6808 Apr, [facility] [address] [id number], [place] 924046288 Apr, [facility] [address] [id number], [place] 995570744 Apr, [facility] [address]00565100[place] [address]- 4556 Apr, [facility] [address] [facility] [id number], [place] [address] Apr, [facility] [place] [address] [id number][place] [id number] Apr, [facility] [place] [facility] [address] [facility] [id number] [address] Apr, [facility] [place] [address] [id number][place] [id number] Apr, [facility] [place] [address] [id number][place] [id number] Apr, [facility] [place] [address] [id number][place] [id number] Mar, [facility] [place] [address] [id number][place] [id number] Feb, [facility] [place] [address] [id number] [place] [id number] Jan, [facility] [place] [address] [id number] [place] [id number] Dec, [facility] [place] [address] [id number] [place] [id number] Dec, [facility] [place] [address] [id number] [place] [id number] Dec, [facility] [place] [address] [id number] [place] [id number] Dec, [facility] [place] [address] [id number] [place] [id number] Dec, [facility] [place] [address] [id number] [place] [id number] November, [facility] [place] [address] [id number] [place] [id number] November, [facility] [place] [address] [id number] [place] [id number] November, [facility] [address] [facility] [id number], [place] [address] November, [facility] [place] [address] [id number] [place] [id number] November, [facility] [place] [address] [id number] [place] [id number] November, [facility] [place] [address] [id number] [place] [id number] Oct, [facility] [place] [address] [id number] [place] [id number] Oct, [facility] [place] [address] [id number] [place] [id number] Oct, [facility] [place] [address] [id number] [place] [id number] Oct, [facility] [place] [address] [id number] [place] [id number] Oct, [facility] [place] [address] [id number] [place] [id number] Oct, [facility] [place] [address] [id number][place] [id number] Sep, [facility] [place] [address] [id number] [place] [id number] Aug, [facility] [place] [address] [id number] [place] [id number] Aug, [facility] [place] [address] [facility] [id number] [place] [id number] Jul, [facility] [place] [facility] [address] [facility] [id number] [place] [address], [place] [address] Jun, [facility] [place] [facility] [address] [id number] [place] [address] Jun, [facility] [place] [facility] [id number] [place] [address], [place] [address] Jun, [facility] [place] [facility] [id number] [address] Jun, [facility] [place] [facility] [address] [id number] [address] May, [facility] [place] [facility] [address] [id number], [place] [address] May, [facility] [place] [facility] [id number] Apr, [facility] [place] [facility] [id number], [place] [address] Apr, [facility] [place] [facility] [address] [id number], [place] [address] Apr, [facility] [place] [facility] [address] [facility] [id number], [place] [address] Feb, [facility] [place] [facility] [address] [facility] [id number], [place] [address] Aug, [facility] [place] [facility] [address] [facility] [id number], [place] [address] Jul, [facility] [place] [facility] [id number], [place] [address] 30 Jun, 2010 [facility] [place] [facility] [address] [id number] [place] [address] May, [facility] [place] [facility] [address] [id number] [place] [address] May, [facility] [place] [facility] [address] [id number] [place] [address] 25[address] May, [facility] [place] [facility] [address] [id number], [place] [address] May, [facility] [place] [facility] [address] [id number] [place] [address] May, [facility] [place] [facility] [address] [id number] [place] [address] Aug, [facility] [place] [facility] [address] [id number], [place] [address] Jun, [facility] [place] [facility] [address] [id number], [place] [address] Jun, [facility] [place] [facility] [address] [id number], [place] [address] Jun, [facility] [place] [facility] [address] [id number], [place] [address] 24 May, 2009 [facility] [place] [facility] [address] [id number], [place] [address] 28 Apr, 2009 [facility] [place] [facility] [address] [id number], [place] [address] 27 Apr, 2009 [facility] [place] [facility] [address] [id number], [place] [address]45 15 Apr, 2009 [facility] [place] [facility] [address] [address] [id number], [place] [address] 20 Jan, 2009 [facility] [address] [id number], [place] [address] 13 Oct, 2008 [facility] [address] [facility] [id number] [place] [address] May, [facility] [address] [facility] [id number] [place] [address] May, IMMUNIZATIONS No Known Immunizations SOCIAL HISTORY [...] Dialysis Ruthy Reveles 2012 -Dr. Simon now [facility] Medical History Colonoscopy (polyps 2 ) [...]
--- OUTSIDE RECORDS SUMMARY | 2017-12-22 19:43 | XMS REPORT ---
Author Author CHELSY VILLAFANA Organization [facility] Address [address] [place] [address] Care Team Providers Care Lamp Shade Maker Name Role Phone CHELSY VILLAFANA Unavailable PROBLEMS Type Condition ICD9-CM Code PGM13-BZ Code Onset Dates Condition Status SNOMED Code Problem Sleep apnea in adult G47.33 Active 82486010 Problem Primary insomnia F51.01 Active 0204400 Problem Chronic pain syndrome G89.4 Active 777325734 Problem Supplemental oxygen dependent Z99.81 Active 480616025737 Problem Right carpal tunnel syndrome G56.01 Active 664102577796098 Problem long term care phlebotomist 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 Active 036444130 Problem 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 Active 015599425490524 Problem Chronic kidney disease, stage 4 (severe) N18.4 Active 007510379 Problem Type 2 diabetes mellitus with hyperglycemia E11.65 Active 826136888788077 Problem Psoriasis of scalp L40.9 Active 784811631 Problem Paresthesia of right upper extremity R20.2 Active 71071023 Problem Diabetic polyneuropathy associated with type 2 diabetes mellitus E11.42 Active 08340780 Problem Gastroesophageal reflux disease without esophagitis K21.9 Active 570734189 Problem Anemia in other chronic diseases classified elsewhere D63.8 Active 273908109 Problem Type 2 diabetes mellitus with other diabetic kidney complication E11.29 Active 538100798 Problem Depression, unspecified depression type F32.9 Active 05394079 Problem History of DVT (deep vein thrombosis) Z86.718 Active 074891187 Problem Chronic obstructive pulmonary disease, unspecified COPD type J44.9 Active 15257659 Problem long term care phlebotomist current use of anticoagulant Z79.01 Active 686988447 Problem Oxygen desaturation during sleep G47.34 Active 159138113 Problem Essential hypertension I10 Active 47702945 ALLERGIES No Information ENCOUNTERS Encounter Location Date Diagnosis [facility] [address] [facility] [id number] [id number] Oct, [facility] [address], [place] [address] Oct, [facility] [address] [place] [id number] [place] [address] 78187- 6963 Oct, [place] [address] [place] [address] 92457- 9815 Sep, Type 2 diabetes mellitus with other diabetic kidney complication E11.29 and Chronic obstructive pulmonary disease, unspecified COPD type J44.9 [place] [address] [address] 15 Aug, 2017 Type 2 diabetes mellitus with other diabetic kidney complication E11.29 [place] [address] [place] [address] 46548- 3078 12 Aug, 2017 Gastroesophageal reflux disease without esophagitis K21.9 ; custodial current use of anticoagulant Z79.01 ; Chronic pain syndrome G89.4 ; Essential hypertension I10 and Type 2 diabetes mellitus with other diabetic kidney complication E11.29 [place] [address], [place] [address] 08 Aug, 2017 Chronic pain syndrome G89.4 [place] [address] [place] [address] 55250- 1775 Aug, Type 2 diabetes mellitus with other diabetic kidney complication E11.29 [place] [address], [place] [address]90 Jul, Diabetic polyneuropathy associated with type 2 diabetes mellitus E11.42 [place] [address], [place] [address] 2572 Jul, Primary insomnia F51.01 [place] [id number] [place] [address] 25158- 2355 Jul, [place] [address] [place] [address] 08138- 4438 Jul, Type 2 diabetes mellitus with other diabetic kidney complication E11.29 and Chronic obstructive pulmonary disease, unspecified COPD type J44.9 [place] [address], [place] [address] 3342 Jul, Type 2 diabetes mellitus with other diabetic kidney complication E11.29 [place] [address], [place] [address] 3686 Jun, Type 2 diabetes mellitus with other diabetic kidney complication E11.29 [place] [id number] [place] [address] 56283- 4584 Jun, [place] [id number] [place] [address] 20812- 8593 Jun, Chronic obstructive pulmonary disease, unspecified COPD type J44.9 [place] [id number] [place] [address] 55855- 9371 May, Type 2 diabetes mellitus with other diabetic kidney complication E11.29 [place] [address] [address] 3[address] May, long term care phlebotomist current use of anticoagulant Z79.01 and Essential hypertension I10 [address] [place] [address] 98341- 7003 May, Anemia in other chronic diseases classified elsewhere D63.8 ; Chronic obstructive pulmonary disease, unspecified COPD type J44.9 ; Oxygen desaturation during sleep G47.34 ; Sleep apnea in adult G47.33 and Supplemental oxygen dependent Z99.81 [address] [place] [address] 35568- 3080 May, Type 2 diabetes mellitus with other diabetic kidney complication E11.29 ; Essential hypertension I10 ; Chronic pain syndrome G89.4 ; BMI 40.0-44.9, adult Z68.41 ; Gastroesophageal reflux disease without esophagitis K21.9 ; long term care phlebotomist current use of anticoagulant Z79.01 ; long term care phlebotomist 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 ; Diabetic polyneuropathy associated with type 2 diabetes mellitus E11.42 ; Edema of both legs R60.0 and Supplemental oxygen dependent Z99.81 [place] [id number] [place] [address] 27461- 5825 08 May, 2017 [facility] [id number] [place] [address] 06214- 2718 May, Essential hypertension I10 and Gastroesophageal reflux disease without esophagitis K21.9 [facility] [id number] [place] [address] 37110- 4518 May, [facility] [address] 25507- 4215 May, Type 2 diabetes mellitus with other diabetic kidney complication E11.29 and custodial current use of anticoagulant Z79.01 [place] [address] 20060- 0156 Apr, Chronic pain syndrome G89.4 and Essential hypertension I10 [place] [id number] [place] [address] 78516- 4913 Apr, Type 2 diabetes mellitus with other diabetic kidney complication E11.29 [facility] [id number] [place] [address] 95419- 8910 Apr, Type 2 diabetes mellitus with other diabetic kidney complication E11.29 [place] [id number] [place] [address] 91357- 1472 Apr, Essential hypertension I10 [facility] [id number] [place] [address] 79869- 0413 Apr, Gastroesophageal reflux disease without esophagitis K21.9 [facility] [id number] [place] [address] 78641- 0405 Apr, Type 2 diabetes mellitus with other diabetic kidney complication E11.29 [facility] [id number] [place] [address] 35989- 5005 Apr, Type 2 diabetes mellitus with other diabetic kidney complication E11.29 and custodial current use of anticoagulant Z79.01 [facility] [id number] [place] [address] 73083- 7722 Mar, Encounter for immunization Z23 and Preoperative examination Z01.818 [facility] [id number] [place] [address] 30082- 8837 Mar, [place] [id number] [place] [address] 33036- 4016 Mar, Type 2 diabetes mellitus with other diabetic kidney complication E11.29 [facility] [id number] [place] [address] 99196- 2546 Mar, Type 2 diabetes mellitus with other diabetic kidney complication E11.29 [place] [id number] [place] [address] 23014- 5044 Mar, Gastroesophageal reflux disease without esophagitis K21.9 [place] [id number] [place] [address] 59332- 9565 Mar, Essential hypertension I10 [place] [address] 03210- 5004 Feb, long term care phlebotomist current use of anticoagulant Z79.01 [place] [id number] [place] [address] 50899- 8406 Feb, Type 2 diabetes mellitus with other diabetic kidney complication E11.29 [place] [id number] [place] [address] 50679- 5437 Feb, Type 2 diabetes mellitus with other diabetic kidney complication E11.29 [place] [id number] [place] [address] 86055- 7341 Feb, Type 2 diabetes mellitus with other diabetic kidney complication E11.29 [place] [id number] [place] [address] 67001- 0504 Feb, Gastroesophageal reflux disease without esophagitis K21.9 [facility] [id number] [place] [address] 22163- 2549 Feb, Type 2 diabetes mellitus with other diabetic kidney complication E11.29 [place] [id number] [place] [address] 85631- 2556 01 Aug, 2017 custodial current use of anticoagulant Z79.01 [facility] [address], [place] [address] 9005 Jan, 2017 Type 2 diabetes mellitus with other diabetic kidney complication E11.29 [facility] [address], [place] [address] 2546 Jan, Type 2 diabetes mellitus with other diabetic kidney complication E11.29 [facility] [id number] [place] [address] 35764- 8535 Jan, Chronic pain syndrome G89.4 [facility] [address], [place] [address]- 7333 Jan, [facility] [id number] [place] [address] 85600- 5868 Jan, [facility] [id number] [place] [address] 51521- 9068 Jan, [facility] [id number] [place] [address] 61246- 9919 Jan, [facility] [address] [place] [address] 77846- 1277 Jan, Primary insomnia F51.01 ; Type 2 diabetes mellitus with other diabetic kidney complication E11.29 ; Chronic pain syndrome G89.4 and Essential hypertension I10 [facility] [address], [place] [address]- 5921 Jan, Primary insomnia F51.01 [facility] [address], [place] [address]- 5353 Jan, Type 2 diabetes mellitus with other diabetic kidney complication E11.29 [facility] [address], [place] [address]- 1172 Jan, [facility] [address], [place] [address]- 3591 Jan, Chronic obstructive pulmonary disease, unspecified COPD type J44.9 [facility] [id number] [place] [address] 91976- 5408 Jan, Essential hypertension I10 ; Type 2 diabetes mellitus with other diabetic kidney complication E11.29 ; Chronic obstructive pulmonary disease, unspecified COPD type J44.9 ; Chronic kidney disease, stage 4 (severe) N18.4 ; Right carpal tunnel syndrome G56.01 ; 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 ; long term care phlebotomist (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 and Diabetic polyneuropathy associated with type 2 diabetes mellitus E11.42 [facility] [id number] [place] [address] 10113- 8937 Jan, Gastroesophageal reflux disease without esophagitis K21.9 [facility] [id number] [place] [address] 37908- 2287 Dec, [facility] [id number] [place] [address] 95489- 0310 Dec, [facility] [id number] [place] [address] 92936- 7480 Dec, custodial current use of anticoagulant Z79.01 ; Chronic pain syndrome G89.4 and Essential hypertension I10 [facility] [id number] [place] [address] 69242- 6745 Dec, [facility] [id number] [place] [address] 07922- 9682 Dec, Type 2 diabetes mellitus with other diabetic kidney complication E11.29 [facility] [id number] [place] [address] 34253- 7684 Dec, [facility] [id number] [place] [address] 17432- 5087 Dec, Gastroesophageal reflux disease without esophagitis K21.9 [facility] [id number] [place] [address] 39676- 3375 November, Type 2 diabetes mellitus with other diabetic kidney complication E11.29 [facility] [id number] [place] [address] 23508- 9192 November, [place] [address], [place] [address] 1938 November, Type 2 diabetes mellitus with other diabetic kidney complication E11.29 [facility] [address], [place] [address]- 8617 November, [facility] [address], [place] [address]- 7344 November, Type 2 diabetes mellitus with other diabetic kidney complication E11.29 [facility] [address], [place] [address]- 7518 November, [facility] [id number] [place] [address] 46231- 3430 Oct, Essential hypertension I10 [facility] [id number] [place] [address] 95983- 3985 Oct, Psoriasis of scalp L40.9 [facility] [id number] [place] [address] 63808- 2549 Oct, Essential hypertension I10 and Chronic pain syndrome G89.4 [facility] [address] [place] [address] 34987- 7484 Oct, [facility] [address], [place] [address]- 9383 Sep, Type 2 diabetes mellitus with other diabetic kidney complication E11.29 [facility] [address], [place] [address]- 8363 Sep, [facility] [address], [place] [address]- 2549 Sep, Type 2 diabetes mellitus with other diabetic kidney complication E11.29 [facility] [address] 2636 Sep, Type 2 diabetes mellitus with other diabetic kidney complication E11.29 [facility] [address], [place] [address]- 9159 09 Mar, 2017 Type 2 diabetes mellitus [...] extremity R20.2 and Psoriasis of scalp L40.9 [place] [id number] [place] [address] 83513- 4775 Sep, [place] [address] 21634- 2413 Aug, Essential hypertension I10 [address] 41828- 7085 Aug, History of DVT (deep vein thrombosis) Z86.718 [place] [id number] [place] [address] 85868- 7071 Aug, [place] [address] 71482- 7617 Jul, [place] [id number] [place] [address] 77008- 6698 Jul, [place] [id number] [place] [address] 72908- 5700 Jul, long term care phlebotomist current use of anticoagulant Z79.01 ; Chronic pain syndrome G89.4 and Chronic kidney disease, stage 4 (severe) N18.4 [place] [address] 53309- 8551 Jul, [place] [id number] [place] [address] 17291- 9203 Jul, [place] [address] 03827- 0216 Jul, [place] [address], [place] [address]- 2357 Jul, [place] [id number] [place] [address] 25720- 3168 Jul, [place] [id number] [place] [address] 65319- 3909 Jul, Type 2 diabetes mellitus with other diabetic kidney complication E11.29 [place] [address] [place] [address] 89229- 5962 16 Jul, 2016 History of DVT (deep vein thrombosis) Z86.718 [place] [id number] [place] [address] 30631- 8306 Jun, [place] [address] [place] [address] 19449- 4933 Jun, History of DVT (deep vein thrombosis) Z86.718 [place] [address] [place] [address] 74360- 1511 15 Jun, 2016 Post traumatic stress disorder (PTSD) F43.10 [place] [id number] [place] [address] 36694- 5764 07 Jun, 2016 Type 2 diabetes mellitus with other diabetic kidney complication E11.29 ; Diabetic polyneuropathy associated with type 2 diabetes mellitus E11.42 ; Iron deficiency anemia due to chronic blood loss D50.0 ; Chronic obstructive pulmonary disease, unspecified COPD type J44.9 ; long term care phlebotomist current use of anticoagulant Z79.01 ; History [...] pain M79.641 and Right wrist pain M25.531 [facility] [address] [place] [id number] [place] [address]- 5512 28 May, 2016 [facility] [id number] [place] [address], [place] [address]- 5206 May, [facility] [address] [place] [address] 2545 May, [facility] [id number] [place] [address], [place] [address]- 0050 15 May, 2016 [facility] [address] [place] [address], [place] [address]- 4205 May, Anemia in other chronic diseases classified elsewhere D63.8 [facility] [address] [place] [address], [place] [address]- 9155 May, [facility] [id number] [place] [address] 75668- 1975 Apr, [facility] [address] [place] [address], [place] [address]- 6105 27 Mar, 2016 Dermatofibroma D23.9 [facility] [id number] [place] [address], [place] [address]- 2435 20 Mar, 2016 [facility] [address], [place] [address]- 2548 14 Mar, 2016 Chronic pain syndrome G89.4 [facility] [address], [place] [address] 254 09 Mar, 2016 [facility] [address], [place] [address] 254 07 Mar, 2015 [facility] [id number] [place] [address], [place] [address] 2546 06 Mar, 2016 [facility] [address], [place] [address] 2540 30 Feb, 2016 [facility] [address] [place] [address] 63810- 9027 Feb, [facility] [address], [place] [address]- 0749 Feb, [facility] [id number] [place] [address] 72394- 5495 Feb, [facility] [id number] [place] [address] 30133- 0418 Feb, [facility] [id number] [place] [address] 19308- 6289 Feb, [place] [id number] [place] [address] 19491- 7596 Feb, Type 2 diabetes mellitus with other diabetic kidney complication E11.29 ; Diabetic polyneuropathy associated with type 2 diabetes mellitus E11.42 ; Iron deficiency anemia due to chronic blood loss D50.0 ; Chronic obstructive pulmonary disease, unspecified COPD type J44.9 ; long term care phlebotomist current use of anticoagulant Z79.01 ; History of DVT (deep vein thrombosis) Z86.718 ; Chronic pain syndrome G89.4 ; Oxygen desaturation during sleep G47.34 ; Sleep apnea in adult G47.33 ; Gastroesophageal reflux disease without esophagitis K21.9 ; Essential hypertension I10 ; Primary insomnia F51.01 ; Depression, unspecified depression type F32.9 and Renal failure, chronic, stage 4 (severe) N18.4 [facility] [id number] [place] [address] 40682- 1681 Feb, Skin tags, multiple acquired L91.8 [facility] [id number] [place] [address] 92436- 4017 Jan, [facility] [address] [place] [address] [id number] Jan, Dental examination Z01.20 [facility] [id number] [place] [address] 53509- 9061 Jan, [facility] [id number] [place] [address] 94135- 2566 Jan, Type 2 diabetes mellitus with other diabetic kidney complication E11.29 ; Diabetic polyneuropathy associated with type 2 diabetes mellitus E11.42 ; Iron deficiency anemia due to chronic blood loss D50.0 ; Chronic obstructive pulmonary disease, unspecified COPD type J44.9 ; long term care phlebotomist current use of anticoagulant Z79.01 ; History of DVT (deep vein thrombosis) Z86.718 ; Chronic pain syndrome G89.4 ; Oxygen desaturation during sleep G47.34 ; Sleep apnea in adult G47.33 ; Gastroesophageal reflux disease without esophagitis K21.9 ; Essential hypertension I10 ; Primary insomnia F51.01 ; Depression, unspecified depression type F32.9 ; Skin lesion L98.9 and Renal failure, chronic, stage 4 (severe) N18.4 [facility] [id number] [place] [address] 15752- 7458 Dec, Diabetes type 2, uncontrolled E11.[address] 24874- 0018 Dec, [address] 28387- 8800 Dec, Type 2 diabetes mellitus with other [...] F51.01 and Depression, unspecified depression type F32.9 [facility] [id number] [place] [address] [id number] Dec, Dental caries K02.9 [facility] [id number] [place] [address] [id number] Dec, [facility] [address] [place] [address] [id number] Dec, Dental examination Z01.20 [facility] [address] [id number] [place] [id number] November, Dental examination Z01.20 and Dental caries K02.9 [facility] [id number] [place] [address] [id number] Oct, [facility] [address] [id number] [id number] Oct, [facility] [id number] [place] [address] [id number] Sep, [facility] [id number] [place] [address] [id number] Sep, [facility] [id number] [place] [address] [id number] Sep, [facility] [id number] [place] [address] [id number] Sep, Other chronic pain 338.29 [facility] [id number] [place] [address] [id number] Aug, Diabetes type 2, uncontrolled E11.65 and Morbid obesity due to excess calories E66.01 [facility] [address] [id number] [id number] Aug, Hair loss L65.9 [facility] [id number] [place] [address] [id number] Aug, [facility] [id number] [place] [address] [id number] Jul, [facility] [id number] [place] [address] [id number] Jul, [facility] [id number] [place] [address] [id number] Jun, [facility] [id number] [place] [address] [id number] Jun, Hair loss L65.9 and Disorder of the skin and subcutaneous tissue, unspecified L98.9 [facility] [address] [id number] [id number] May, Type 2 diabetes mellitus with other diabetic kidney complication E11.29 ; Type 2 diabetes mellitus with hyperglycemia E11.65 ; Morbid obesity due to excess calories E66.01 and Essential hypertension I10 [facility] [id number] [place] [address] [id number] May, Diabetes type 2, uncontrolled E11.65 ; Encounter for immunization Z23 and Morbid obesity due to excess calories E66.01 [facility] [id number] [place] [address] [id number] May, [facility] [address] [address] Apr, [facility] [id number] [place] [address] [id number] Apr, Hyperglycemia R73.[address] [id number] Apr, [id number] [place] [address] [id number] Apr, Depression F32.9 ; Encounter for immunization Z23 ; Hyperglycemia R73.9 and Anemia in other chronic diseases classified elsewhere D63.8 [facility] [id number] [id number] Mar, [address] [place] [address] [id number] Feb, Positive occult stool blood test 792.1 [id number] [place] [address] [id number] Feb, Depression 311 ; Other chronic pain 338.29 and Diabetes with renal manifestations, type II or unspecified type, not stated as uncontrolled 250.40 [facility] [address]005[address]100[place] [address]13- [address] Feb, Occult blood in stools 792.1 [id number] [place] [address] [id number] Feb, Anemia 285.9 ; Occult blood positive stool 792.1 ; Unspecified essential hypertension 401.9 and Other chronic pain 338.29 [address] [place] [address] [id number] Feb, [address] [id number] [place] [address] [id number] Feb, Anemia 285.9 [facility] [id number], [place] [id number] Feb, [facility] [id number] [place] [address] [id number] Feb, [facility] [id number], [place] [id number] Feb, Diabetes with renal manifestations, type II or unspecified type, not stated as uncontrolled 250.40 ; Other chronic pain 338.29 ; Unspecified essential hypertension 401.9 ; Anemia 285.9 and Depression 311 [facility] [id number], [place] [id number] Jan, [facility] [id number] [place] [address] [id number] Jan, Anemia 285.9 and Follow up V67.9 [facility] [id number] [id number] Jan, [facility] [id number] [place] [address] [id number] Jan, [facility] [id number], [place] [id number] Jan, [facility] [id number] [place] [address] [id number] Dec, [facility] [address]00565100[place], [place] [address] 9394 Oct, [facility] [id number] [place] [address] 34[address] 2546 Oct, [facility] [address]00565100[place], [place] [address] 0265 Sep, [facility] [id number], [place] 986382444 Sep, [facility] [id number] [place] [address] 0[address] 2546 Sep, [facility] [address] [id number] [id number] Aug, [facility] [place] [facility] [address] [facility] [id number], [place] [address]- 1709 Aug, 2014 [facility] [place] [facility] [address] [facility] [id number], [place] [address]- 5964 Aug, [facility] [place] [address] [facility] [id number], [place] [id number] Aug, [facility] [place] [facility] [address] [facility] [id number] [place] [address]- 5248 Aug, [facility] [place] [facility] [address] [facility] [id number], [place] [address]- 2984 Aug, [facility] [place] [address] [facility] [id number] [place] [id number] Aug, [facility] [place] [facility] [address]00565100[place], [place] [address]- 3203 Aug, [facility] [place] [id number], [place] [id number] Jul, [facility] [place] [facility] [address] [facility] [id number], [place] [address]- 4724 Jul, [facility] [place] [facility] [address]00565100[place], [place] [address]- 2447 Jul, [facility] [place] [address] [facility] [id number], [place] [id number] Jul, [facility] [place] [facility] [address] [facility] [id number], [place] [address]- 7192 Jul, [facility] [place] [address] [facility] [id number], [place] 850834641 Jul, [facility] [place] [facility] [address] [facility] [id number], [place] [address]- 2546 Jul, [facility] [place] [address] [facility] [id number], [place] [id number] Jun, [facility] [place] [address] [facility] [id number], [place] 653137914 Jun, [facility] [place] [facility] [address] [id number], [place] [address]- [address]26 Jun, [facility] [place] [facility] [address] [id number] [place] [address]- 0982 Jun, [facility] [place] [address] [id number] [place] [id number] Jun, [facility] [place] [facility] [address] [facility] [id number], [place] [address]- 9486 Jun, [facility] [place] [address] [id number], [place] [id number] May, [facility] [place] [facility] [address] [facility] [id number] [place] [address]- 9406 May, [facility] [place] [facility] [address] [facility] [id number] [place] [address]- 9957 May, [facility] [place] [address] [facility] [id number], [place] [id number] Apr, [facility] [place] [facility] [address] [facility] [id number], [place] [address]- 6580 Apr, [facility] [place] [address] [id number], [place] [id number] Apr, [facility] [place] [address] [id number], [place] [id number] Apr, [facility] [place] [facility] [address] [facility] [id number], [place] [address]- 7460 Apr, [facility] [place] [facility] [address] [facility] [id number], [place] [address]- 5061 Apr, [facility] [place] [address] [id number], [place] [id number] Mar, [facility] [place] [facility] [address] [id number], [place] [address]- 2254 Mar, [facility] [place] [address] [facility] [id number], [place] [id number] Mar, [facility] [place] [facility] [address] [facility] [id number], [place] [address]- 7475 Mar, [facility] [place] [address] [id number] [place] 846171275 Mar, [facility] [place] [facility] [address] [id number] [place] [address]- 0265 Mar, [facility] [place] [address] [id number] [place] [id number] Mar, [facility] [place] [facility] [address] [facility] [id number] [place] [address]- 0303 Mar, [facility] [place] [address] [id number] [place] [id number] Mar, [facility] [place] [facility] [address] [id number] [place] [address]- 2194 Mar, [facility] [place] [address] [id number] [place] [id number] Feb, [facility] [place] [facility] [address] [facility] [id number], [place] 584526- 3881 Feb, [facility] [place] [address] [facility] [id number] [place] 858302977 Jan, [facility] [place] [facility] [address] [facility] [id number], [place] [address]- 4234 Jan, [facility] [place] [address] [facility] [id number] [place] 752718265 Jan, [facility] [place] [facility] [address] [facility] [id number], [place] [address]- 1385 Jan, [facility] [place] [address] [facility] [id number] [place] 598125429 Jan, [facility] [place] [facility] [address] [facility] [id number], [place] [address]- 1580 Jan, [facility] [place] [facility] [address] [facility] [id number] [place] [address]- 8276 Dec, [facility] [place] [facility] [address] [facility] [id number] [place] 12390219- 2863 Dec, [facility] [place] [address] [id number] [place] [id number] November, [facility] [place] [facility] [address] [facility] [id number] [place] [address]- 4329 November, [facility] [place] [address] [facility] [id number] [place] 874340135 November, [facility] [place] [facility] [address] [facility] [id number] [place] [address]- 4476 November, [facility] [place] [address] [facility] [id number] [place] [id number] Oct, [facility] [place] [facility] [address] [facility] [id number] [place] [address]- 7113 Oct, [facility] [place] [facility] [address] [facility] [id number] [place]- 8273 Oct, [facility] [place] [facility] [address] [facility] [id number] [place] [address]- 2968 Oct, [facility] [place] [facility] [address] [id number] [place] [address]- 9250 Oct, [facility] [place] [facility] [address] [facility] [id number] [place] [address]- 1268 Oct, [facility] [place] [address] [facility] [id number] [place] [id number] Sep, [facility] [place] [address] [facility] [id number], [place] 995524212 Sep, [facility] [place] [facility] [address] [facility] [id number], [place] [address]- 4041 Sep, [facility] [place] [facility] [address] [facility] [id number], [place] [address]- 7126 Sep, [facility] [place] [address] [facility] [id number] [place] 040587307 Sep, [facility] [place] [facility] [address] [facility] [id number] [place]- 3111 Sep, [facility] [place] [facility] [address] [facility] [id number], [place] [address]- 7047 Aug, [facility] [place] [facility] [address] [facility] [id number], [place] [address]- 1876 Aug, [facility] [place] [address] [id number] [place] [id number] Aug, [facility] [place] [address] [facility] [id number] [place] [id number] Aug, [facility] [place] [facility] [address] [facility] [id number] [place] [address]- 6556 Aug, [facility] [place] [address] [facility] [id number] [place] 881879115 Aug, [facility] [place] [facility] [address] [facility] [id number] [place] [address]- 1292 Aug, [facility] [place] [address] [facility] [id number] [place] 059860522 Aug, [facility] [place] [facility] [address]100[place], [place] [address]- 4954 Aug, [facility] [place] [address] [facility] [id number] [place] 474192246 Aug, [facility] [place] [facility] [address] [id number], [place] [address]- 6406 Aug, [facility] [place] [address] [facility] [id number] [place] 394024536 Aug, [facility] [place] [facility] [address]100[place], [place] [address]- 2326 Aug, [facility] [place] [facility] [address]65100[place], [place] [address]- 8605 Jul, [facility] [place] [address] [facility] [id number], [place] 693317068 Jun, [facility] [place] [facility] [address] [facility] [id number] [place] [address]- 1074 Jun, [facility] [place] [facility] [address] [id number] 470[place]- 6204 Jun, [facility] [place] [facility] [address] [id number], [place] [address]- 2564 Jun, [facility] [place] [address] [facility] [id number], [place] 398682641 Jun, [facility] [place] [facility] [address] [facility] [id number] [place] [address] 2546 Jun, [facility] [place] [facility] [address] [facility] [id number], [place] [address]- 2546 Jun, [facility] [place] [address] [facility] [id number], [place] 169393738 Jun, [facility] [place] [facility] [address] [facility] [id number], [place] [address]- 2546 Jun, [facility] [place] [facility] [address] [place] [address]- 8465 May, [facility] [place] [address] [id number], [place] 717479178 May, [facility] [place] [facility] [address]100[place], [place] [address]- 7176 May, [facility] [place] [facility] [address] [id number], [place] [address]- 1556 May, [facility] [place] [facility] [address]100[place], [place] [address]- 7381 May, [facility] [place] [facility] [address]65100[place], [place] [address]- 0576 May, [facility] [place] [address] [facility] [id number], [place] 377425239 May, [facility] [place] [facility] [address] [facility] [id number], [place] [address]- 2546 May, [facility] [place] [address] [facility] [id number], [place] 413393802 May, [facility] [place] [facility] [address] [id number], [place] [address]- 8466 May, [facility] [place] [address] [facility] [id number], [place] [id number] Apr, [facility] [place] [facility] [address] [facility] [id number], [place] [address]- 2259 Apr, [facility] [address] [id number], [place] [address]- 0793 Apr, [facility] [address] [facility] [id number], [place] 681687282 Apr, [facility] [place] [facility] [address] [facility] [id number], [place] [address]- 5069 Apr, [facility] [place] [facility] [address] [id number], [place] [address]- 6678 Apr, [facility] [address] [facility] [id number], [place] 537717856 Apr, [facility] [place] [facility] [address] [id number], [place] 298760- 6274 Apr, [facility] [place] [facility] [address] [id number], [place] [address]- 0679 Apr, [facility] [place] [facility] [address] [facility] [id number], [place] [address]- 2541 Apr, [facility] [address] [facility] [id number], [place] 079825932 Apr, [facility] [place] [facility] [address] [facility] [id number], [place] [address]- 0646 Apr, [facility] 120 [facility] [id number], [place] 203897233 Apr, [facility] [place] [facility] [address] [facility] [id number], [place] [address]- 8133 Apr, [facility] 120 [facility] [id number], [place] 374168455 Apr, [facility] [place] [facility] [address] [facility] [id number], [place] [address]- 5585 Apr, [facility] [place] [facility] [address] [facility] [id number], [place] [address]- 9396 Apr, [facility] [place] [facility] [address] [facility] [id number], [place] [address]- 3472 Apr, [facility] [place] [address] [id number] [place] 395398036 Apr, [facility] [address] [facility] [id number], [place] [address]- 3414 Mar, [facility] [address] [facility] [id number] [place] [address]- 6709 Mar, [facility] [place] [address] [id number] [place] 474734377 Mar, [facility] [place] [address] [id number] [place] 614026354 Mar, [facility] [place] [address] [id number] [place] 963510345 Mar, [facility] [place] [address] [id number] [place] 794512375 Feb, [facility] [place] [address] [id number] [place] 340120806 Feb, [facility] [place] [address] [id number] [place] 974859241 Feb, [facility] [address] [facility] [id number], [place] [address]- 5889 Feb, [facility] [place] [address] [id number] [place] 171108741 Feb, [facility] [place] [address] [id number] [place] 471114634 Feb, [facility] [place] [address] [id number] [place] 815770389 Feb, [facility] [place] [address] [id number] [place] 786573990 Feb, [facility] [place] [address] [id number] [place] 449986382 Feb, [facility] [place] [address] [id number] [place] 868270381 Jan, [facility] [place] [address] [id number] [place] 436825601 Jan, [facility] [place] [address] [id number] [place] 838840230 Jan, [facility] [place] [address] [id number] [place] 517965844 Jan, [facility] [place] [address] [id number] [place] 937473172 Jan, [facility] [address] [id number] [place] [address]- 0566 Jan, [facility] [place] [address] [id number] [place] 558165221 Jan, [facility] [place] [address] [id number] [place] 407226776 Jan, [facility] [place] [address] [id number] [place] 456038223 Dec, [facility] [place] [address] [id number] [place] 265176383 November, [facility] [place] [address] [id number] [place] 972278935 November, [facility] [place] [address] [id number] [place] 327834930 November, [facility] [place] [address] [id number] [place] 269390134 November, [facility] [place] [address] [id number] [place] 721383517 November, [facility] [place] [address] [id number] [place] 608490087 November, [facility] [place] [address] [id number] [place] 131350594 Jul, [facility] [place] [address] [id number] [place] 486118170 Jul, [facility] [place] [address] [id number] [place] 147813742 Jul, [facility] [place] [address] [id number] [place] 363739581 Jun, [facility] [address] [id number] [place] [address]- 4856 Jun, [facility] [place] [address] [id number], [place] 069531673 May, [facility] [place] [facility] [address] [facility] [id number], [place] [address]- 3168 May, [facility] [place] [address] [facility] [id number], [place] 709742103 May, [facility] [place] [facility] [address] [facility] [id number], [place] [address]- 5921 May, [facility] [place] [address] [facility] [id number], [place] 291482203 May, [facility] [place] [facility] [address] [facility] [id number], [place] [address]- 3533 May, [facility] [place] [address] [facility] [id number], [place] 206811251 Apr, [facility] [place] [facility] [address]005[address]100[place], [place] [address]- 5957 Apr, [facility] [place] [facility] [id number] [place] [address] 73292- 6326 Apr, [facility] [place] [address] [facility] [id number], [place] 092402623 Apr, [facility] [address] [facility] [id number], [place] 759545578 Apr, [facility] [place] [facility] [address]005[address]100[place], [place] [address]- 1022 Apr, [facility] [place] [facility] [address] [facility] [id number], [place] [address]- 4304 Apr, [facility] [place] [address] [id number], [place] 006863752 Apr, [facility] [place] [facility] [address] [facility] [id number], [place] [address]- 7954 Apr, [facility] [place] [address] [id number], [place] 962606767 Apr, [facility] [place] [address] [id number], [place] 864682300 Apr, [facility] [place] [address] [id number], [place] 647404695 Mar, [facility] [place] [address] [id number] [place] 313461359 Feb, [facility] [place] [address] [id number] [place] 463227542 Jan, [facility] [place] [address] [id number] [place] [id number] Dec, [facility] [place] [address] [id number] [place] [id number] Dec, [facility] [place] [address] [id number] [place] [id number] Dec, [facility] [place] [address] [id number] [place] [id number] Dec, [facility] [place] [address] [id number] [place] [id number] Dec, [facility] [place] [address] [id number] [place] [id number] November, [facility] [place] [address] [id number] [place] [id number] November, [facility] [place] [address] [id number] [place] [id number] November, [facility] [id number] [address] November, [facility] [place] [address] [id number] [place] [id number] November, [facility] [place] [address] [id number] [place] [id number] November, [facility] [place] [address] [id number] [place] [id number] Oct, [facility] [place] [address] [id number] [place] [id number] Oct, [facility] [place] [address] [id number] [place] [id number] Oct, [facility] [place] [address] [id number] [place] [id number] Oct, [facility] [place] [address] [id number] [place] [id number] Oct, [facility] [place] [address] [id number] [place] [id number] Oct, [facility] [place] [address] [id number] [place] [id number] Sep, [facility] [place] [address] [id number] [place] [id number] Aug, [facility] [place] [address] [id number] [place] [id number] Aug, [facility] [place] [address] [id number] [place] [id number] Jul, [facility] [place] [facility] [address] [id number] [place] [address]- 2011 Jun, [facility] [place] [facility] [id number] [place] [address], [place] [address] Jun, [facility] [place] [facility] [id number] [place] [address]189[address]- [address] Jun, [facility] [place] [facility] [id number] [place] [address]- 2217 Jun, [facility] [place] [facility] [id number], [place] [address] May, [facility] [place] [facility] [id number] [place] [address]- [address] May, [facility] [place] [facility] [id number], [place] [address] Apr, [facility] [place] [facility] [id number], [place] [address] Apr, [facility] [place] [facility] [address] [facility] [id number], [place] [address] Apr, [facility] [place] [facility] [id number] [place] [address]- [address] Feb, [facility] [place] [facility] [address] [facility] [id number], [place] [address] 15 Aug, 2010 [facility] [place] [facility] [id number] [place] [address]- [address] Jul, [facility] [place] [facility] [address] [id number] [place] [address]- [address] 30 Jun, 2010 [facility] [place] [facility] [address] [id number] [place] [address] 2546 May, [facility] [place] [facility] [address] [id number] [place] [address] 2546 May, [facility] [place] [facility] [address] [id number] [place] [address] 2544 May, [facility] [place] [facility] [address] [id number] [place] [address] May, [facility] [place] [facility] [address] [id number] [place] [address] 2545 May, [facility] [place] [facility] [address] [id number] [place] [address] Aug, [facility] [place] [facility] [address] [id number] [place] [address]- [address] Jun, [facility] [place] [facility] [address] [id number] [place] [address]- [address]05 Jun, [facility] [place] [facility] [address] [id number] [place] [address]- [address]47 Jun, [facility] [place] [facility] [address] [id number], [place] [address]47 24 May, 2009 [facility] [place] [facility] [address] [id number], [place] [address] 28 Apr, 2009 [facility] [place] [facility] [address] [id number] [place] [address]47 27 Apr, 2009 [facility] [place] [facility] [address] [id number], [place] [address] 15 Apr, 2009 [facility] [place] [facility] [address] [id number] [place] [address] 2546 Jan, [facility] [place] [facility] [address] [facility] [id number] [place] [address] Oct, [facility] [address] [facility] [id number] [place] [address] May, [facility] [address] [facility] [id number] [place] [address] May, IMMUNIZATIONS No Known Immunizations SOCIAL HISTORY [...] Dialysis [facility] 2012 -Dr. Simon now [facility] Medical History Colonoscopy (polyps 2 [...]
--- OUTSIDE RECORDS SUMMARY | 2017-12-22 19:44 | XMS REPORT ---
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 Name Role Phone CHELSY VILLAFANA Unavailable PROBLEMS Type Condition ICD9-CM Code QAD10-AK Code Onset Dates Condition Status SNOMED Code Problem Chronic pain syndrome G89.4 Active 020167462 Problem Type 2 diabetes mellitus with hyperglycemia E11.65 Active 715276073865201 Problem Primary insomnia F51.01 Active 0054004 Problem Bilateral lower extremity edema R60.0 Active 683864968 Problem Anemia in other chronic diseases classified elsewhere D63.8 Active 172172071 Problem Supplemental oxygen dependent Z99.81 Active 964887431697 Problem Right carpal tunnel syndrome G56.01 Active 715655724651910 Problem 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 Active 928282603578303 Problem Paresthesia of right upper extremity R20.2 Active 73350997 Problem Chronic kidney disease, stage 4 (severe) N18.4 Active 059617415 Problem 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 Active 614882339 Problem Psoriasis of scalp L40.9 Active 071114370 Problem Gastroesophageal reflux disease without esophagitis K21.9 Active 615776143 Problem Chronic obstructive pulmonary disease, unspecified COPD type J44.9 Active 08172079 Problem Type 2 diabetes mellitus with other diabetic kidney complication E11.29 Active 162081632 Problem Diabetic polyneuropathy associated with type 2 diabetes mellitus E11.42 Active 77346891 Problem History of DVT (deep vein thrombosis) Z86.718 Active 513526623 Problem nursing home current use of anticoagulant Z79.01 Active 685962549 Problem Oxygen desaturation during sleep G47.34 Active 818900836 Problem Essential hypertension I10 Active 08124876 Problem Depression, unspecified depression type F32.9 Active 19425310 Problem Sleep apnea in adult G47.33 Active 88924777 ALLERGIES No Information ENCOUNTERS Encounter Location Date Diagnosis [facility] [address] [id number] [id number] Oct, Bilateral lower extremity edema R60.0 [address], [place] [address] Oct, [address], [place] [address] Sep, Type 2 diabetes mellitus with other diabetic kidney complication E11.29 and Chronic obstructive pulmonary disease, unspecified COPD type J44.9 [address], [place] [address] 15 Aug, 2017 Type 2 diabetes mellitus with other diabetic kidney complication E11.29 [id number] [place] [address] 65828- 5441 12 Aug, 2017 Gastroesophageal reflux disease without esophagitis K21.9 ; nursing home current use of anticoagulant Z79.01 ; Chronic pain syndrome G89.4 ; Essential hypertension I10 and Type 2 diabetes mellitus with other diabetic kidney complication E11.29 [address], [place] [address] 08 Aug, 2017 Chronic pain syndrome G89.4 [address], [place] [address] Aug, Type 2 diabetes mellitus with other diabetic kidney complication E11.29 [address], [place] [address] 2352 Jul, Diabetic polyneuropathy associated with type 2 diabetes mellitus E11.42 [address] [id number] [address] Jul, Primary insomnia F51.01 [address] [place] [address] 84006- 2017 Jul, [address], [place] [address] Jul, Type 2 diabetes mellitus with other diabetic kidney complication E11.29 and Chronic obstructive pulmonary disease, unspecified COPD type J44.9 [address], [place] [address] 5341 Jul, Type 2 diabetes mellitus with other diabetic kidney complication E11.29 [address] [place] [address] 01865- 7901 Jun, Type 2 diabetes mellitus with other diabetic kidney complication E11.29 [address] [place] [id number] [place] [address] 60693- 1203 Jun, [address] [place] [id number] [place] [address] 50097- 6494 Jun, Chronic obstructive pulmonary disease, unspecified COPD type J44.9 [id number] [place] [address] 35796- 5833 May, Type 2 diabetes mellitus with other diabetic kidney complication E11.29 [id number] [place] [address] 85743- 0950 May, 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 and Essential hypertension I10 [id number] [place] [address] 17145- 0655 May, Anemia in other chronic diseases classified elsewhere D63.8 ; Chronic obstructive pulmonary disease, unspecified COPD type J44.9 ; Oxygen desaturation during sleep G47.34 ; Sleep apnea in adult G47.33 and Supplemental oxygen dependent Z99.[address] [place] [address] 37324- 4598 May, Type 2 diabetes mellitus with other diabetic kidney complication E11.29 ; Essential hypertension I10 ; Chronic pain syndrome G89.4 ; BMI 40.0-44.9, adult Z68.41 ; Gastroesophageal reflux disease without esophagitis K21.9 ; 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 ; 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 ; Diabetic polyneuropathy associated with type 2 diabetes mellitus E11.42 ; Edema of both legs R60.0 and Supplemental oxygen dependent Z99.[address] [place] [address] 42679- 0877 May, [facility] [place] [id number] [place] [address] 34587- 8183 May, Essential hypertension I10 and Gastroesophageal reflux disease without esophagitis K21.9 [facility] [place] [id number] [place] [address] 48079- 7131 May, [facility] [place] [address] [address]- 1279 May, Type 2 diabetes mellitus with other diabetic kidney complication E11.29 and nursing home current use of anticoagulant Z79.01 [id number] [place] [address] 47217- 5671 Apr, Chronic pain syndrome G89.4 and Essential hypertension I10 [address] 29033- 8810 Apr, Type 2 diabetes mellitus with other diabetic kidney complication E11.29 [facility] [place] [id number] [place] [address] 91025- 0794 Apr, Type 2 diabetes mellitus with other diabetic kidney complication E11.29 [facility] [place] [id number] [place] [address] 04359- 4576 Apr, Essential hypertension I10 [facility] [place] [id number] [place] [address] 38768- 0244 Apr, Gastroesophageal reflux disease without esophagitis K21.9 [facility] [place] [id number] [place] [address] 71165- 5505 Apr, Type 2 diabetes mellitus with other diabetic kidney complication E11.29 [facility] [place] [id number] [place] [address] 82302- 7281 Apr, Type 2 diabetes mellitus with other diabetic kidney complication E11.29 and 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 [facility] [place] [id number] [place] [address] 42866- 6859 Mar, Encounter for immunization Z23 and Preoperative examination Z01.818 [address] [place] [address] 66999- 6519 Mar, [id number] [place] [address] 33261- 9128 Mar, Type 2 diabetes mellitus with other diabetic kidney complication E11.29 [id number] [place] [address] 47048- 8577 08 Mar, 2017 Type 2 diabetes mellitus with other diabetic kidney complication E11.29 [id number] [place] [address] 53560- 0424 Mar, Gastroesophageal reflux disease without esophagitis K21.9 [id number] [place] [address] 50763- 6609 Mar, Essential hypertension I10 [id number] [place] [address] 56280- 6748 Feb, nursing home current use of anticoagulant Z79.01 [id number] [place] [address] 81186- 9576 Feb, Type 2 diabetes mellitus with other diabetic kidney complication E11.29 [address] [id number] [place] [address] 08898- 3901 Feb, Type 2 diabetes mellitus with other diabetic kidney complication E11.29 [id number] [place] [address] 93921- 3338 Feb, Type 2 diabetes mellitus with other diabetic kidney complication E11.29 [address] [id number] [place] [address] 72493- 2601 Feb, Gastroesophageal reflux disease without esophagitis K21.9 [facility] [place] [id number] [place] [address] 48775- 4571 Feb, Type 2 diabetes mellitus with other diabetic kidney complication E11.29 [id number] [place] [address] 26881- 5131 Feb, 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 [address], [place] [address] 96[address] Jan, 2017 Type 2 diabetes mellitus with other diabetic kidney complication E11.29 [facility] [place] [address], [place] [address] 2546 Jan, Type 2 diabetes mellitus with other diabetic kidney complication E11.29 [facility] [place] [address], [place] [address] 8747 Jan, Chronic pain syndrome G89.4 [facility] [place] [address], [place] [address] 2541 Jan, [facility] [place] [id number] [place] [address] 83163- 7481 Jan, [facility] [place] [id number] [place] [address] 83915- 8921 Jan, [facility] [place] [id number] [address] 7651 Jan, [facility] [place] [address], [place] [address]- 9360 Jan, Primary insomnia F51.01 ; Type 2 diabetes mellitus with other diabetic kidney complication E11.29 ; Chronic pain syndrome G89.4 and Essential hypertension I10 [facility] [place] [address], [place] [address]- 8220 Jan, Primary insomnia F51.01 [facility] [place] [address], [place] [address]- 7501 Jan, Type 2 diabetes mellitus with other diabetic kidney complication E11.29 [facility] [place] [address], [place] [address]- 1464 Jan, [facility] [place] [address] [address]662 Jan, Chronic obstructive pulmonary disease, unspecified COPD type J44.9 [facility] [place] [address], [place] [address]- 8783 Jan, Essential hypertension I10 ; Type 2 diabetes mellitus with other diabetic kidney complication E11.29 ; Chronic obstructive pulmonary disease, unspecified COPD type J44.9 ; Chronic kidney disease, stage 4 (severe) N18.4 ; Right carpal tunnel syndrome G56.01 ; 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 ; nursing home (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 and Diabetic polyneuropathy associated with type 2 diabetes mellitus E11.42 [facility] [place] [id number] [place] [address] 17109- 0038 Jan, Gastroesophageal reflux disease without esophagitis K21.9 [facility] [place] [id number] [place] [address] 97677- 9867 Dec, [facility] [place] [id number] [place] [address] 48787- 4850 Dec, [facility] [place] [id number] [place] [address] 54507- 9130 Dec, nursing home current use of anticoagulant Z79.01 ; Chronic pain syndrome G89.4 and Essential hypertension I10 [facility] [place] [id number] [place] [address] 66957- 7199 Dec, [facility] [place] [id number] [place] [address] 01036- 2145 Dec, Type 2 diabetes mellitus with other diabetic kidney complication E11.29 [facility] [place] [id number] [place] [address] 64677- 6676 Dec, [facility] [place] [id number] [place] [address] 15833- 7639 Dec, Gastroesophageal reflux disease without esophagitis K21.9 [facility] [place] [id number] [place] [address] 44917- 9186 November, Type 2 diabetes mellitus with other diabetic kidney complication E11.29 [facility] [place] [id number] [place] [address] 50528- 2117 November, [facility] [place] [address] [place] [address]- 0919 November, Type 2 diabetes mellitus with other diabetic kidney complication E11.29 [facility] [place] [address], [place] [address]- 1244 November, [facility] [place] [address], [place] [address]- 9317 November, Type 2 diabetes mellitus with other diabetic kidney complication E11.29 [facility] [place] [id number] [address]- 6905 November, [facility] [place] [id number] [place] [address] 10003- 7123 Oct, Essential hypertension I10 [facility] [place] [id number] [place] [address] 54952- 6253 Oct, Psoriasis of scalp L40.9 [facility] [place] [id number] [place] [address] 69861- 0377 Oct, Essential hypertension I10 and Chronic pain syndrome G89.4 [facility] [place] [address], [place] [address]- 3745 Oct, [facility] [place] [address], [place] [address]- 6365 Sep, Type 2 diabetes mellitus with other diabetic kidney complication E11.29 [facility] [place] [address], [place] [address]- 0613 Sep, [facility] [place] [address], [place] [address]- 3613 Sep, Type 2 diabetes mellitus with other diabetic kidney complication E11.29 [facility] [place] [address], [place] [address]- 3314 Sep, Type 2 diabetes mellitus with other diabetic kidney complication E11.29 [facility] [place] [address], [place] [address]- 0007 Sep, Type 2 diabetes mellitus with other diabetic kidney complication E11.29 ; Chronic kidney disease, stage 4 (severe) N18.4 ; Chronic obstructive pulmonary disease, unspecified COPD type J44.9 ; Iron deficiency anemia due to chronic blood loss D50.0 ; 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 ; Gastroesophageal reflux disease without esophagitis K21.9 ; Essential hypertension I10 ; Primary insomnia F51.01 ; Depression, unspecified depression type F32.9 ; Chronic pain syndrome G89.4 ; Wrist pain, right M25.531 ; Paresthesia of right upper extremity R20.2 and Psoriasis of scalp L40.9 [address] 08491- 2944 Sep, [address] 26780- 6460 Aug, Essential hypertension I10 [address] 53756- 9214 Aug, History of DVT (deep vein thrombosis) Z86.718 [address] 42931- 8293 Aug, [address] 04741- 6186 Jul, [address] 91073- 8245 Jul, [address] [id number] [place] [address] 41832- 6737 Jul, 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 ; Chronic pain syndrome G89.4 and Chronic kidney disease, stage 4 (severe) N18.4 [address] 60207- 3363 Jul, [address] [place] 10958- 2981 Jul, [address] 41966- 6770 Jul, [address] [id number] [address] 6468 Jul, [address] [place] [address] 47588- 2800 Jul, [id number] [place] [address] 68944- 9913 Jul, Type 2 diabetes mellitus with other diabetic kidney complication E11.29 [id number] [place] [address] 14826- 6356 16 Jul, 2016 History of DVT (deep vein thrombosis) Z86.718 [id number] [place] [address] 43829- 2453 Jun, [id number] [place] [address] 22306- 4927 Jun, History of DVT (deep vein thrombosis) Z86.718 [address] [place] [address] 89800- 1162 15 Jun, 2016 Post traumatic stress disorder (PTSD) F43.10 [address] [place] [address] 27543- 8883 07 Jun, 2016 Type 2 diabetes mellitus with other diabetic kidney complication E11.29 ; Diabetic polyneuropathy associated with type 2 diabetes mellitus E11.42 ; Iron deficiency anemia due to chronic blood loss D50.0 ; Chronic obstructive pulmonary disease, unspecified COPD type J44.9 ; 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 ; [...] pain M79.641 and Right wrist pain M25.531 [id number] [place] [address]- 0186 May, [facility] [place] [address] [place] [address]- 1381 May, [facility] [place] [id number] [place] [address]- 7134 May, [facility] [place] [id number] [place] [address], [place] [address]- 6717 15 May, 2016 [facility] [place] [id number] [place] [address]- 0644 May, Anemia in other chronic diseases classified elsewhere D63.8 [facility] [place] [address] [place] [address], [place] [address]- 0589 May, [facility] [place] [address] [place] [address]- 4166 Apr, [facility] [place] [address] [place] [address] 22301- 5673 27 Mar, 2016 Dermatofibroma D23.9 [facility] [place] [address] [place] [address], [place] [address]- 8839 20 Mar, 2016 [facility] [place] [address] [place] [address]- 8703 14 Mar, 2016 Chronic pain syndrome G89.4 [facility] [place] [address] [place] [address] 2548 09 Mar, 2015 [facility] [place] [address] [address]- 2540 07 Mar, 2015 [facility] [place] [address] [place] [address]- 2356 06 Mar, 2016 [facility] [place] [address] [place] [address]- 2545 Feb, [facility] [place] [address], [place] [address]- 2699 Feb, [facility] [place] [address], [place] [address]- 3401 Feb, [place] [address], [place] [address]- 7991 Feb, [facility] [place] [address], [place] [address]- 9201 Feb, [address] [place] [address] [place] [address] 02180- 8434 Feb, [place] [address], [place] [address]- 0437 Feb, Type 2 diabetes mellitus with other diabetic kidney complication E11.29 ; Diabetic polyneuropathy associated with type 2 diabetes mellitus E11.42 ; Iron deficiency anemia due to chronic blood loss D50.0 ; Chronic obstructive pulmonary disease, unspecified COPD type J44.9 ; 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 ; History of DVT (deep vein thrombosis) Z86.718 ; Chronic pain syndrome G89.4 ; Oxygen desaturation during sleep G47.34 ; Sleep apnea in adult G47.33 ; Gastroesophageal reflux disease without esophagitis K21.9 ; Essential hypertension I10 ; Primary insomnia F51.01 ; Depression, unspecified depression type F32.9 and Renal failure, chronic, stage 4 (severe) N18.4 [place] [address] [address]- 7598 Feb, Skin tags, multiple acquired L91.8 [place] [address], [place] [address]- 2360 Jan, [facility] [address] [address] Jan, Dental examination Z01.20 [place] [address], [place] [address]- 9263 Jan, [place] [address], [place] [address]- 1263 Jan, Type 2 diabetes mellitus with other diabetic kidney complication E11.29 ; Diabetic polyneuropathy associated with type 2 diabetes mellitus E11.42 ; Iron deficiency anemia due to chronic blood loss D50.0 ; Chronic obstructive pulmonary disease, unspecified COPD type J44.9 ; 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 ; [...] Renal failure, chronic, stage 4 (severe) N18.4 [facility] [place] [id number] [place] [address] 03646- 7151 Dec, Diabetes type 2, uncontrolled E11.65 [place] [id number] [place] [address] 22810- 3005 Dec, [address] 44013- 7307 Dec, Type 2 diabetes mellitus with other diabetic kidney complication E11.29 ; Diabetic polyneuropathy associated with type 2 diabetes mellitus E11.42 ; Iron deficiency anemia due to chronic blood loss D50.0 ; Chronic obstructive pulmonary disease, unspecified COPD type J44.9 ; nursing home current use of anticoagulant Z79.01 ; History of DVT (deep vein thrombosis) Z86.718 ; Chronic pain syndrome G89.4 ; Oxygen desaturation during sleep G47.34 ; Sleep apnea in adult G47.33 ; Gastroesophageal reflux disease without esophagitis K21.9 ; Essential hypertension I10 ; Primary insomnia F51.01 and Depression, unspecified depression type F32.9 [facility] [address] [id number][place] [id number] Dec, Dental caries K02.9 [facility] [address] [id number], [place] [id number] Dec, [facility] [id number] [place] [address] [id number] Dec, Dental examination Z01.20 [facility] [address] [id number] [id number] November, Dental examination Z01.20 and Dental caries K02.9 [facility] [address] [id number], [place] [id number] Oct, [facility] [address] [id number], [place] [id number] Oct, [facility] [address] [id number], [place] 857758261 Sep, [facility] [id number] [place] [address] [id number] Sep, [facility] [id number] [place] [id number] Sep, [facility] [id number] [place] [address] [id number] Sep, Other chronic pain 338.29 [facility] [id number] [place] [address] [id number] Aug, Diabetes type 2, uncontrolled E11.65 and Morbid obesity due to excess calories E66.01 [facility] [id number], [place] [id number] Aug, Hair loss L65.9 [facility] [id number] [place] [address] [id number] Aug, [facility] [id number], [place] [id number] Jul, [facility] [id number] [place] [address] [id number] Jul, [facility] [id number], [place] [id number] Jun, [facility] [id number], [place] 096808783 Jun, Hair loss L65.9 and Disorder of the skin and subcutaneous tissue, unspecified L98.9 [facility] [id number], [place] [id number] May, Type 2 diabetes mellitus with other diabetic kidney complication E11.29 ; Type 2 diabetes mellitus with hyperglycemia E11.65 ; Morbid obesity due to excess calories E66.01 and Essential hypertension I10 [id number] [place] [address] [id number] May, Diabetes type 2, uncontrolled E11.65 ; Encounter for immunization Z23 and Morbid obesity due to excess calories E66.01 [facility] [id number] [place] [address] [id number] 04 May, 2015 [facility] [place] [address] [address] Apr, [id number] [place] [address] [id number] Apr, Hyperglycemia R73.[address] [id number] Apr, [address] [id number] Apr, Depression F32.9 ; Encounter for immunization Z23 ; Hyperglycemia R73.9 and Anemia in other chronic diseases classified elsewhere D63.8 [facility] [id number] [place] [address] [id number] Mar, [id number] [place] [address] [id number] Feb, Positive occult stool blood test 792.1 [id number] [place] [address] [id number] Feb, Depression 311 ; Other chronic pain 338.29 and Diabetes with renal manifestations, type II or unspecified type, not stated as uncontrolled 250.40 [facility] [place] [id number] [place] [address] 46[address]- 9677 Feb, Occult blood in stools 792.1 [id number] [place] [address] [id number] Feb, Anemia 285.9 ; Occult blood positive stool 792.1 ; Unspecified essential hypertension 401.9 and Other chronic pain 338.[id number] [place] [address] [id number] Feb, [id number] [place] [address] [id number] Feb, Anemia 285.9 [facility] [id number], [place] [id number] Feb, [facility] [id number] [place] [address] [id number] Feb, [facility] [id number], [place] 454306938 Feb, Diabetes with renal manifestations, type II or unspecified type, not stated as uncontrolled 250.40 ; Other chronic pain 338.29 ; Unspecified essential hypertension 401.9 ; Anemia 285.9 and Depression 311 [facility] [id number], [place] [id number] Jan, [facility] [id number] [place] [address] [id number] Jan, Anemia 285.9 and Follow up V67.9 [facility] [id number], [place] [id number] Jan, [facility] [id number] [place] [address] [id number] Jan, [facility] [id number], [place] [id number] Jan, [facility] [id number] [place] [address] [id number] Dec, [facility] [place] [id number] [place] [address] 98740- 2546 Oct, [facility] [place] [id number] [place] [address] 44944- 7737 Oct, [facility] [place] [id number] [place] [address] 85581 2546 Sep, [facility] [id number], [place] [id number] Sep, [facility] [place] [id number] [place] [address] 74230- 4419 Sep, [facility] [id number], [place] [id number] Aug, [facility] [place] [address] [id number], [place] [address]- 2846 Aug, 2014 [facility] [place] [facility] [address] [facility] [id number] [place] [address]- 7048 Aug, [facility] [address] [facility] [id number], [place] [id number] Aug, [facility] [place] [facility] [address]005[address] [place] [address]- 8790 Aug, [facility] [place] [facility] [address] [facility] [id number][place] [address]- 1560 Aug, [facility] [address] [facility] [id number] [place] [id number] Aug, [facility] [place] [facility] [address] [id number] [place] [address]- 3854 Aug, [facility] [id number], [place] [id number] Jul, [facility] [place] [facility] [address] [id number], [place] [address]- 1620 Jul, [facility] [place] [facility] [address]00565100[place], [place] [address]- 3838 Jul, [facility] [address] [facility] [id number], [place] [id number] Jul, [facility] [place] [facility] [address]00565100[place], [place] [address]- 7187 Jul, [facility] [address] [facility] [id number], [place] [id number] Jul, [facility] [place] [facility] [address] [facility] [id number], [place] [address]- 2609 Jul, [facility] [address] [id number], [place] [id number] Jun, [facility] [address] [facility] [id number], [place] [id number] Jun, [facility] [place] [facility] [address] [id number], [place] [address]- 9812 Jun, [facility] [place] [facility] [address] [facility] [id number], [place] [address]- 3175 Jun, [facility] [address] [facility] [id number] [place] [id number] Jun, [facility] [place] [facility] [address] [facility] [id number], [place] [address]- 7436 Jun, [facility] [address] [facility] [id number], [place] [id number] May, [facility] [place] [facility] [address] [facility] [id number], [place] [address]- 4597 May, [facility] [place] [facility] [address] [facility] [id number], [place] [address]- 2590 May, [facility] [address] [facility] [id number], [place] [id number] Apr, [facility] [place] [facility] [address] [facility] [id number], [place] [address]- 9070 Apr, [facility] [address] [facility] [id number], [place] [id number] Apr, [facility] [address] [facility] [id number], [place] [id number] Apr, [facility] [place] [facility] [address] [facility] [id number], [place] [address]- 6861 Apr, [facility] [place] [facility] [address] [facility] [id number], [place] [address]- 1590 Apr, [facility] [address] [facility] [id number], [place] [id number] Mar, [facility] [place] [facility] [address] [facility] [id number], [place] [address]- 9727 Mar, [facility] [address] [facility] [id number], [place] 530447511 Mar, [facility] [place] [facility] [address] [facility] [id number], [place] [address]- 5116 17 Mar, 2014 [facility] [address] [facility] [id number], [place] [id number] Mar, [facility] [place] [facility] [address] [id number] [place] [address]- 0028 Mar, [facility] [address] [id number] [place] [id number] Mar, [facility] [place] [facility] [address] [facility] [id number] [place] [address]- 7776 Mar, [facility] [address] [id number] [place] [id number] Mar, [facility] [place] [facility] [address] [id number] [place] [address]- 4125 Mar, [facility] [address] [id number] [place] [id number] Feb, [facility] [place] [facility] [address] [facility] [id number] [place] [address]- 9596 Feb, [facility] [address] [facility] [id number] [place] [id number] Jan, [facility] [place] [facility] [address] [facility] [id number], [place] [address]- 0727 Jan, [facility] [address] [facility] [id number], [place] [id number] Jan, [facility] [place] [facility] [address] [facility] [id number], [place] [address]- 6631 Jan, [facility] [address] [id number] [place] [id number] Jan, [facility] [place] [facility] [address] [facility] [id number], [place] [address]- 7918 Jan, [facility] [place] [facility] [address] [facility] [id number][place] [address]- 7595 Dec, [facility] [place] [facility] [address] [facility] [id number], [place] [address]- 9636 Dec, [facility] [address] [facility] [id number] [place] [id number] November, [facility] [place] [facility] [address] [facility] [id number], [place] [address]- 8099 November, [facility] [address] [facility] [id number] [place] [id number] November, [facility] [place] [facility] [address] [id number] [place] [address]- 3797 November, [facility] [address] [facility] [id number] [place] [id number] Oct, [facility] [place] [facility] [address] [facility] [id number] [place] [address]- 7026 Oct, [facility] [place] [facility] [address] [facility] [id number] [place] [address]- 3438 Oct, [facility] [place] [facility] [address] [facility] [id number] [place] [address]- 0043 Oct, [facility] [place] [facility] [address] [id number] [place] [address]- 2425 Oct, [facility] [place] [facility] [address] [id number] [place] [address]- 1536 Oct, [facility] [address] [facility] [id number] [place] [id number] Sep, [facility] [address] [facility] [id number] [place] 854247219 Sep, [facility] [place] [facility] [address] [facility] [id number] [place] [address]- 5868 Sep, [facility] [place] [facility] [address] [facility] [id number], [place] [address]- 6824 Sep, [facility] [address] [facility] [id number], [place] [id number] Sep, [facility] [place] [facility] [address] [facility] [id number] [place] [address]- 7102 Sep, [facility] [place] [facility] [address] [facility] [id number] [place] 31627325- 7830 Aug, [facility] [place] [facility] [address] [id number] [place] [address]- 6844 Aug, [facility] [address] [id number] [place] [id number] Aug, [facility] [address] [facility] [id number] [place] [id number] Aug, [facility] [place] [facility] [address] [facility] [id number], [place] [address]- 2546 Aug, [facility] [address] [facility] [id number] [place] 819131198 Aug, [facility] [place] [facility] [address] [facility] [id number], [place] [address]- 6046 Aug, [facility] [address] [facility] [id number] [place] [id number] Aug, [facility] [place] [facility] [address]00565100[place], [place] [address]- 6166 Aug, [facility] [id number] [place] [id number] Aug, [facility] [place] [facility] [address]00565100[place], [place] [address]- 0247 Aug, [facility] [address] [facility] [id number] [place] [id number] Aug, [facility] [place] [facility] [address]00565100[place], [place] [address]- 8936 Aug, [facility] [place] [facility] [address] [id number], [place] [address]- 8846 Jul, [facility] [address] [facility] [id number], [place] [id number] Jun, [facility] [place] [facility] [address] [facility] [id number], [place] [address]- 7388 Jun, [facility] [place] [facility] [address] [facility] [id number], [place] [address]- 3806 Jun, [facility] [place] [facility] [address] [id number], [place] [address]- 9146 Jun, [facility] [address] [facility] [id number], [place] 320853376 Jun, [facility] [address] [facility] [id number], [place] [address]- 6176 Jun, [facility] [place] [facility] [address] [facility] [id number], [place] [address] 2546 Jun, [facility] [address] [facility] [id number], [place] 402746074 Jun, [facility] [place] [facility] [address] [facility] [id number], [place] [address]- 2246 Jun, [facility] [place] [facility] [address] [facility] [id number], [place] [address]- 4193 May, [facility] [address] [facility] [id number], [place] [id number] May, [facility] [place] [facility] [address]00565100[place], [place] [address]- 9056 May, [facility] [place] [facility] [address] [id number], [place] [address]- 7325 May, [facility] [place] [facility] [address] [id number], [place] [address]- 6816 May, [facility] [place] [facility] [address] [id number], [place] [address]- 1076 May, [facility] [address] [facility] [id number], [place] 827141670 May, [facility] [place] [facility] [address] [facility] [id number], [place] [address]- 1516 May, [facility] [address] [facility] [id number], [place] 068679446 May, [facility] [place] [facility] [address] [facility] [id number], [place] [address]- 2546 May, [facility] [address] [facility] [id number], [place] 157415996 Apr, [facility] [place] [facility] [address] [id number], [place] [address]- 7818 Apr, [facility] [address] [id number], [place] [address]- 4324 Apr, [facility] [id number], [place] [id number] Apr, [facility] [place] [facility] [address] [id number], [place] [address]- 9780 Apr, [facility] [place] [facility] [address] [id number], [place] [address]- 1575 Apr, [facility] [id number], [place] [id number] Apr, [facility] [place] [facility] [address] [id number], [place] [address]- 5239 Apr, [facility] [place] [facility] [address] [facility] [id number], [place] 104734- 4589 Apr, [facility] [place] [facility] [address] [facility] [id number], [place] 106268- 3038 Apr, [facility] [id number], [place] [id number] Apr, [facility] [place] [facility] [address] [id number], [place] [address]- 4027 Apr, [facility] [id number], [place] 524665052 Apr, [facility] [place] [facility] [address] [facility] [id number], [place] [address]- 8721 Apr, [facility] [id number], [place] [id number] Apr, [facility] [place] [facility] [address] [facility] [id number], [place] [address]- 8650 Apr, [facility] [place] [facility] [address] [facility] [id number][place] [address]- 9205 Apr, [facility] [place] [facility] [address] [id number], [place] [address]- 6939 Apr, [facility] [address] [id number] [place] 401562862 Apr, [facility] [address] [facility] [id number], [place] [address]- 2751 Mar, [facility] [address] [facility] [id number], [place] [address]- 7789 Mar, [facility] [address] [id number] [place] [id number] Mar, [facility] [address] [id number] [place] 739761602 Mar, [facility] [address] [id number] [place] [id number] Mar, [facility] [address] [id number] [place] 938214349 Feb, [facility] [address] [id number] [place] 679259857 Feb, [facility] [address] [id number] [place] [id number] Feb, [facility] [address] [facility] [id number], [place] [address]- 0114 Feb, [facility] [address] [id number] [place] [id number] Feb, [facility] [address] [id number] [place] [id number] Feb, [facility] [address] [id number] [place] [id number] Feb, [facility] [address] [id number] [place] 176877673 Feb, [facility] [address] [id number] [place] 073948232 Feb, [facility] [address] [id number] [place] 543166788 Jan, [facility] [address] [id number] [place] [id number] Jan, [facility] [address] [id number] [place] 401848670 Jan, [facility] [address] [id number] [place] [id number] Jan, [facility] [address] [id number] [place] [id number] Jan, [facility] [address] [facility] [id number], [place] [address]- 5816 Jan, [facility] [address] [id number] [place] 398139566 Jan, [facility] [address] [id number] [place] 675947339 Jan, [facility] [address] [id number] [place] 851805400 Dec, [facility] [address] [id number] [place] 339536558 November, [facility] [address] [id number] [place] [id number] November, [facility] [address] [id number] [place] [id number] November, [facility] [address] [id number] [place] 042932595 November, [facility] [address] [id number] [place] [id number] November, [facility] [place] [address] [id number] [place] [id number] November, [facility] [place] [address] [id number] [place] [id number] Jul, [facility] [place] [address] [id number] [place] [id number] Jul, [facility] [place] [address] [id number] [place] [id number] Jul, [facility] [place] [address] [id number] [place] [id number] Jun, [facility] [id number] [address] Jun, [facility] [place] [address] [id number][place] [id number] May, [facility] [id number], [place] [address] May, [facility] [place] [address] [id number][place] [id number] May, [facility] [place] [facility] [address] [facility] [id number], [place] [address] May, [facility] [place] [address] [id number][place] [id number] May, [facility] [place] [facility] [address] [facility] [id number], [place] [address] May, [facility] [place] [address] [id number][place] [id number] Apr, [facility] [place] [facility] [address] [facility] [id number] [place] [address] Apr, [facility] [place] [facility] [address] [id number] [address] Apr, [facility] [place] [address] [id number], [place] [id number] Apr, [facility] [place] [address] [id number], [place] [id number] Apr, [facility] [place] [facility] [address] [facility] [id number], [place] [address] Apr, [facility] [place] [facility] [address] [facility] [id number], [place] [address] Apr, [facility] [place] [address] [id number][place] [id number] Apr, [facility] [place] [facility] [address] [facility] [id number], [place] [address] Apr, [facility] [place] [address] [id number], [place] [id number] Apr, [facility] [place] [address] [id number], [place] [id number] Apr, [facility] [place] [address] [id number], [place] [id number] Mar, [facility] [place] [address] [id number] [place] [id number] Feb, [facility] [place] [address] [id number] [place] [id number] Jan, [facility] [place] [address] [id number] [place] [id number] Dec, [facility] [place] [address] [id number] [place] [id number] Dec, [facility] [place] [address] [id number] [place] [id number] Dec, [facility] [place] [address] [id number] [place] [id number] Dec, [facility] [place] [address] [id number] [place] [id number] Dec, [facility] [place] [address] [id number] [place] [id number] November, [facility] [place] [address] [id number] [place] [id number] November, [facility] [place] [address] [id number] [place] [id number] November, [facility] [address] [facility] [id number], [place] [address] November, [facility] [place] [address] [id number] [place] [id number] November, [facility] [place] [address] [id number] [place] [id number] November, [facility] [place] [address] [id number] [place] [id number] Oct, [facility] [place] [address] [id number] [place] [id number] Oct, [facility] [place] [address] [id number] [place] [id number] Oct, [facility] [place] [address] [id number] [place] [id number] Oct, [facility] [place] [address] [id number] [place] [id number] Oct, [facility] [place] [address] [id number] [place] [id number] Oct, [facility] [place] [address] [facility] [id number] [place] [id number] Sep, [facility] [place] [address] [id number] [place] [id number] Aug, [facility] [place] [address] [id number] [place] [id number] Aug, [facility] [place] [address] [facility] [id number] [place] [id number] Jul, [facility] [place] [facility] [address] [facility] [id number] [place] [address]- [address] Jun, [facility] [place] [facility] [address] [facility] [id number] [place] [address], [place] [address]- [address] Jun, [facility] [place] [facility] [address] [facility] [id number] [place] [address]- [address] Jun, [facility] [place] [facility] [id number] [place] [address], [place] [address]- [address] Jun, [facility] [place] [facility] [address] [id number], [place] [address] May, [facility] [place] [facility] [id number] [place] [address] May, [facility] [place] [facility] [address] [id number] [address] Apr, [facility] [place] [facility] [id number], [place] [address] Apr, [facility] [place] [facility] [address] [facility] [id number], [place] [address] Apr, [facility] [place] [facility] [address] [facility] [id number], [place] [address] Feb, [facility] [place] [facility] [address] [facility] [id number], [place] [address] Aug, [facility] [place] [facility] [id number] [address] Jul, [facility] [place] [facility] [address] [id number] [place] [address] 30 Jun, 2010 [facility] [place] [facility] [address] [id number] [place] [address] May, [facility] [place] [facility] [address] [id number] [place] [address] May, [facility] [place] [facility] [address] [id number] [place] [address] May, [facility] [place] [facility] [address] [id number] [place] [address] May, [facility] [place] [facility] [address] [id number] [place] [address] May, [facility] [place] [facility] [address] [facility] [id number] [place] [address] Aug, [facility] [place] [facility] [address] [id number], [place] [address] Jun, [facility] [place] [facility] [address] [facility] [id number], [place] [address] Jun, [facility] [place] [facility] [address] [facility] [id number], [place] [address] Jun, [facility] [place] [facility] [address] [facility] [id number], [place] [address] May, [facility] [place] [facility] [address] [id number], [place] [address] 28 Apr, 2009 [facility] [place] [facility] [address] [id number], [place] [address] Apr, [facility] [place] [facility] [address] [id number], [place] [address] 15 Apr, 2009 [facility] [place] [facility] [address] [facility] [id number], [place] [address] Jan, [facility] [place] [facility] [address] [id number], [place] [address] Oct, [facility] [place] [address] [facility] [id number] [place] [address] May, [facility] [place] [address] [facility] [id number], [place] [address] May, IMMUNIZATIONS No Known Immunizations SOCIAL HISTORY [...] Dialysis [facility]es 2012 -Dr. Simon now [facility] Medical History Colonoscopy (polyps 2 ) [...]
--- OUTSIDE RECORDS SUMMARY | 2017-12-22 19:46 | XMS REPORT ---
Author Author HCELSY VILLAFANA Organization [facility] Address [address] [place] [address] Care Team Providers Care Sign Wirer Name Role Phone CHELSY VILLAFANA Unavailable PROBLEMS Type Condition ICD9-CM Code OWC28-LQ Code Onset Dates Condition Status SNOMED Code Problem Chronic pain syndrome G89.4 Active 180440699 Problem Type 2 diabetes mellitus with hyperglycemia E11.65 Active 776267687920361 Problem Primary insomnia F51.01 Active 1894635 Problem Bilateral lower extremity edema R60.0 Active 801742227 Problem Anemia in other chronic diseases classified elsewhere D63.8 Active 028875622 Problem Supplemental oxygen dependent Z99.81 Active 916479073613 Problem Right carpal tunnel syndrome G56.01 Active 989636228251369 Problem 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 Active 781913544877984 Problem Paresthesia of right upper extremity R20.2 Active 22371326 Problem Chronic kidney disease, stage 4 (severe) N18.4 Active 151599414 Problem 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 Active 947475625 Problem Psoriasis of scalp L40.9 Active 592451112 Problem Gastroesophageal reflux disease without esophagitis K21.9 Active 488342573 Problem Chronic obstructive pulmonary disease, unspecified COPD type J44.9 Active 70613965 Problem Type 2 diabetes mellitus with other diabetic kidney complication E11.29 Active 200986467 Problem Diabetic polyneuropathy associated with type 2 diabetes mellitus E11.42 Active 66292393 Problem History of DVT (deep vein thrombosis) Z86.718 Active 184317790 Problem long-term current use of anticoagulant Z79.01 Active 339471549 Problem Oxygen desaturation during sleep G47.34 Active 320469500 Problem Essential hypertension I10 Active 39349992 Problem Depression, unspecified depression type F32.9 Active 31776424 Problem Sleep apnea in adult G47.33 Active 14685424 ALLERGIES No Information ENCOUNTERS Encounter Location Date Diagnosis [facility] [address] [id number] [id number] Oct, Bilateral lower extremity edema R60.0 [address] [address] Oct, [address] [address] Sep, Type 2 diabetes mellitus with other diabetic kidney complication E11.29 and Chronic obstructive pulmonary disease, unspecified COPD type J44.9 [address], [place] [address] 15 Aug, 2017 Type 2 diabetes mellitus with other diabetic kidney complication E11.29 [address] [place] [address] 30537- 9700 12 Aug, 2017 Gastroesophageal reflux disease without esophagitis K21.9 ; long-term current use of anticoagulant Z79.01 ; Chronic pain syndrome G89.4 ; Essential hypertension I10 and Type 2 diabetes mellitus with other diabetic kidney complication E11.29 [address] [address], [place] [address] 2[address] 08 Aug, 2017 Chronic pain syndrome G89.4 [address], [place] [address] 0968 Aug, Type 2 diabetes mellitus with other diabetic kidney complication E11.29 [address], [place] [address] 9293 Jul, Diabetic polyneuropathy associated with type 2 diabetes mellitus E11.42 [id number] [address] 9531 Jul, Primary insomnia F51.01 [address] [place] [address] 44087- 4594 Jul, [address], [place] [address] 1498 Jul, Type 2 diabetes mellitus with other diabetic kidney complication E11.29 and Chronic obstructive pulmonary disease, unspecified COPD type J44.9 [address], [place] [address] 2618 Jul, Type 2 diabetes mellitus with other diabetic kidney complication E11.29 [address] [place] [address] 61542- 9707 Jun, Type 2 diabetes mellitus with other diabetic kidney complication E11.29 [id number] [place] [address] 33146- 2859 Jun, [id number] [place] [address] 94180- 8565 Jun, Chronic obstructive pulmonary disease, unspecified COPD type J44.9 [id number] [place] [address] 13559- 4868 May, Type 2 diabetes mellitus with other diabetic kidney complication E11.29 [id number] [place] [address] 26572- 8992 May, oil 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 and Essential hypertension I10 [id number] [place] [address] 44128- 1771 May, Anemia in other chronic diseases classified elsewhere D63.8 ; Chronic obstructive pulmonary disease, unspecified COPD type J44.9 ; Oxygen desaturation during sleep G47.34 ; Sleep apnea in adult G47.33 and Supplemental oxygen dependent Z99.81 [address] [place] [address] 64481- 8354 May, Type 2 diabetes mellitus with other [...] legs R60.0 and Supplemental oxygen dependent Z99.81 [address] [place] [address] 76547- 3315 May, [facility] [id number] [place] [address] 11801- 0086 May, Essential hypertension I10 and Gastroesophageal reflux disease without esophagitis K21.9 [facility] [id number] [place] [address] 23217- 8834 May, [facility] [address] 71724- 4213 May, Type 2 diabetes mellitus with other diabetic kidney complication E11.29 and long-term current use of anticoagulant Z79.01 [address] [id number] [place] [address] 68049- 7306 Apr, Chronic pain syndrome G89.4 and Essential hypertension I10 [address] 45343- 2278 Apr, Type 2 diabetes mellitus with other diabetic kidney complication E11.29 [facility] [id number] [place] [address] 49072- 0146 Apr, Type 2 diabetes mellitus with other diabetic kidney complication E11.29 [facility] [id number] [place] [address] 94810- 5364 Apr, Essential hypertension I10 [facility] [id number] [place] [address] 94221- 5821 Apr, Gastroesophageal reflux disease without esophagitis K21.9 [facility] [id number] [place] [address] 11113- 9657 Apr, Type 2 diabetes mellitus with other diabetic kidney complication E11.29 [facility] [id number] [place] [address] 14583- 5071 Apr, Type 2 diabetes mellitus with other diabetic kidney complication E11.29 and oil 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 [facility] [id number] [place] [address] 91216- 2512 Mar, Encounter for immunization Z23 and Preoperative examination Z01.818 [address] [place] [address] 17949- 5005 Mar, [id number] [place] [address] 75532- 7242 Mar, Type 2 diabetes mellitus with other diabetic kidney complication E11.29 [address] [id number] [place] [address] 41540- 2225 08 Mar, 2017 Type 2 diabetes mellitus with other diabetic kidney complication E11.29 [address] [id number] [place] [address] 76660- 8974 Mar, Gastroesophageal reflux disease without esophagitis K21.9 [address] [id number] [place] [address] 37776- 7540 Mar, Essential hypertension I10 [address] [id number] [place] [address] 52665- 0664 Feb, long-term current use of anticoagulant Z79.01 [address] [id number] [place] [address] 22421- 1685 Feb, Type 2 diabetes mellitus with other diabetic kidney complication E11.29 [address] [id number] [place] [address] 62925- 0254 Feb, Type 2 diabetes mellitus with other diabetic kidney complication E11.29 [address] [id number] [place] [address] 74957- 4021 Feb, Type 2 diabetes mellitus with other diabetic kidney complication E11.29 [address] [id number] [place] [address] 27944- 3488 Feb, Gastroesophageal reflux disease without esophagitis K21.9 [facility] [id number] [place] [address] 56679- 3032 Feb, Type 2 diabetes mellitus with other diabetic kidney complication E11.29 [address] [id number] [place] [address] 79992- 9290 Feb, oil 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 [address], [place] [address] 7113 Jan, 2017 Type 2 diabetes mellitus with other diabetic kidney complication E11.29 [facility] [address], [place] [address] 2546 Jan, Type 2 diabetes mellitus with other diabetic kidney complication E11.29 [facility] [address], [place] [address] 5218 Jan, Chronic pain syndrome G89.4 [facility] [address], [place] [address] 2549 Jan, [facility] [address] [place] [address] 81765- 7354 Jan, [facility] [address] [place] [address] 13420- 5925 Jan, [facility] [id number], [place] [address]- 3389 Jan, [facility] [address], [place] [address]- 6782 Jan, Primary insomnia F51.01 ; Type 2 diabetes mellitus with other diabetic kidney complication E11.29 ; Chronic pain syndrome G89.4 and Essential hypertension I10 [facility] [address], [place] [address]- 5742 Jan, Primary insomnia F51.01 [facility] [address], [place] [address]- 2290 Jan, Type 2 diabetes mellitus with other diabetic kidney complication E11.29 [facility] [address], [place] [address]- 6737 Jan, [facility] [address] [address] 4401 Jan, Chronic obstructive pulmonary disease, unspecified COPD type J44.9 [facility] [address], [place] [address] 1882 Jan, Essential hypertension I10 ; Type 2 diabetes mellitus with other diabetic kidney complication E11.29 ; Chronic obstructive pulmonary disease, unspecified COPD type J44.9 ; Chronic kidney disease, stage 4 (severe) N18.4 ; Right carpal tunnel syndrome G56.01 ; 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 ; long-term (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 and Diabetic polyneuropathy associated with type 2 diabetes mellitus E11.42 [facility] [id number] [place] [address] 89788- 0604 Jan, Gastroesophageal reflux disease without esophagitis K21.9 [facility] [id number] [place] [address] 24243- 8249 Dec, [facility] [id number] [place] [address] 83346- 6964 Dec, [facility] [id number] [place] [address] 75960- 5466 Dec, long-term current use of anticoagulant Z79.01 ; Chronic pain syndrome G89.4 and Essential hypertension I10 [facility] [id number] [place] [address] 59918- 5271 Dec, [facility] [id number] [place] [address] 72579- 9314 Dec, Type 2 diabetes mellitus with other diabetic kidney complication E11.29 [facility] [id number] [place] [address] 66755- 1362 Dec, [facility] [id number] [place] [address] 79775- 0557 Dec, Gastroesophageal reflux disease without esophagitis K21.9 [facility] [id number] [place] [address] 19227- 1758 November, Type 2 diabetes mellitus with other diabetic kidney complication E11.29 [facility] [id number] [place] [address] 47529- 6171 November, [facility] [address] [place] [address]- 0558 November, Type 2 diabetes mellitus with other diabetic kidney complication E11.29 [facility] [address], [place] [address]- 9479 November, [facility] [address], [place] [address]- 5145 November, Type 2 diabetes mellitus with other diabetic kidney complication E11.29 [facility] [id number] [address]- 9626 November, [facility] [address] [place] [address] 99647- 2103 Oct, Essential hypertension I10 [facility] [id number] [place] [address] 35910- 4379 Oct, Psoriasis of scalp L40.9 [facility] [id number] [place] [address] 09098- 4742 Oct, Essential hypertension I10 and Chronic pain syndrome G89.4 [facility] [address], [place] [address]- 3355 Oct, [facility] [address], [place] [address]- 3848 Sep, Type 2 diabetes mellitus with other diabetic kidney complication E11.29 [facility] [address], [place] [address]- 5312 Sep, [facility] [address], [place] [address]- 9127 Sep, Type 2 diabetes mellitus with other diabetic kidney complication E11.29 [facility] [address], [place] [address]- 7154 Sep, Type 2 diabetes mellitus with other diabetic kidney complication E11.29 [facility] [address] [address]- 1343 Sep, Type 2 diabetes mellitus with other diabetic kidney complication E11.29 ; Chronic kidney disease, stage 4 (severe) N18.4 ; Chronic obstructive pulmonary disease, unspecified COPD type J44.9 ; Iron deficiency anemia due to chronic blood loss D50.0 ; oil 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 ; Gastroesophageal reflux disease without esophagitis K21.9 ; Essential hypertension I10 ; Primary insomnia F51.01 ; Depression, unspecified depression type F32.9 ; Chronic pain syndrome G89.4 ; Wrist pain, right M25.531 ; Paresthesia of right upper extremity R20.2 and Psoriasis of scalp L40.9 [address] 85229- 9082 Sep, [address] [address]- 2011 Aug, Essential hypertension I10 [address] 62423- 6945 Aug, History of DVT (deep vein thrombosis) Z86.718 [address] 32677- 6499 Aug, [address] 37159- 4616 Jul, [address] [place] 33824- 3444 Jul, [address] [id number] [place] [address] 03183- 5390 Jul, oil 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 ; Chronic pain syndrome G89.4 and Chronic kidney disease, stage 4 (severe) N18.4 [address] 45153- 8889 Jul, [address] 86220- 6224 Jul, [address] [place] 92854- 2141 Jul, [address] [id number] [address]- 4534 Jul, [address] [place] [address] 34841- 6841 Jul, [id number] [place] [address] 00509- 6878 Jul, Type 2 diabetes mellitus with other diabetic kidney complication E11.29 [id number] [place] [address] 34862- 8882 16 Jul, 2016 History of DVT (deep vein thrombosis) Z86.718 [id number] [place] [address] 00466- 9646 Jun, [id number] [place] [address] 30203- 1309 Jun, History of DVT (deep vein thrombosis) Z86.718 [address] [place] [address] 73610- 9588 15 Jun, 2016 Post traumatic stress disorder (PTSD) F43.10 [address] [place] [address] 06585- 2487 07 Jun, 2016 Type 2 diabetes mellitus [...] pain M79.641 and Right wrist pain M25.531 [id number] [place] [address]- 7449 May, [facility] [address] [place] [address]- 9679 May, [facility] [id number] [place] [address]- 8362 May, [facility] [id number] [place] [address], [place] [address]- 5040 15 May, 2016 [facility] [id number] [place] [address]- 6194 May, Anemia in other chronic diseases classified elsewhere D63.8 [facility] [address] [place] [address], [place] [address]- 5172 May, [facility] [address] [place] [address]- 6651 Apr, [facility] [address] [place] [address] 99807- 1811 27 Mar, 2016 Dermatofibroma D23.9 [facility] [address] [place] [address], [place] [address]- 2249 20 Mar, 2016 [facility] [address] [place] [address]- 5438 14 Mar, 2016 Chronic pain syndrome G89.4 [facility] [address] [place] [address] 2545 09 Mar, 2015 [facility] [address], [place] [address]- 2544 07 Mar, 2015 [facility] [address] [place] [address]- 1080 06 Mar, 2016 [facility] [address] [place] [address]- 2548 Feb, [facility] [address], [place] [address]- 2992 Feb, [facility] [address], [place] [address]- 4085 Feb, [address], [place] [address]- 1564 Feb, [facility] [address], [place] [address]- 9242 Feb, [address] [place] [address] 65855- 8359 Feb, [address], [place] [address]- 8615 Feb, Type 2 diabetes mellitus with other [...] Renal failure, chronic, stage 4 (severe) N18.4 [address], [place] [address]- 1677 Feb, Skin tags, multiple acquired L91.8 [address], [place] [address]- 1664 Jan, [facility] [address] [address] Jan, Dental examination Z01.20 [address] [address], [place] [address]- 3590 Jan, [address] [address], [place] [address]- 7216 Jan, Type 2 diabetes mellitus with other [...] Renal failure, chronic, stage 4 (severe) N18.4 [facility] [id number] [place] [address] 58535- 9451 Dec, Diabetes type 2, uncontrolled E11.65 [address] [id number] [place] [address] 88567- 9402 Dec, [address] 83355- 9146 Dec, Type 2 diabetes mellitus with other diabetic kidney complication E11.29 ; Diabetic polyneuropathy associated with type 2 diabetes mellitus E11.42 ; Iron deficiency anemia due to chronic blood loss D50.0 ; Chronic obstructive pulmonary disease, unspecified COPD type J44.9 ; long-term current use of anticoagulant Z79.01 ; History of DVT (deep vein thrombosis) Z86.718 ; Chronic pain syndrome G89.4 ; Oxygen desaturation during sleep G47.34 ; Sleep apnea in adult G47.33 ; Gastroesophageal reflux disease without esophagitis K21.9 ; Essential hypertension I10 ; Primary insomnia F51.01 and Depression, unspecified depression type F32.9 [facility] [address] [id number] [address] Dec, Dental caries K02.9 [facility] [address] [id number] [id number] Dec, [facility] [address] [place] [address] [id number] Dec, Dental examination Z01.20 [facility] [id number] [id number] November, Dental examination Z01.20 and Dental caries K02.9 [facility] [address] [id number] [place] [address] Oct, [facility] [address] [id number] [address] Oct, [facility] [address] [id number] [place] [address] Sep, [facility] [id number] [place] [address] [id number] Sep, [facility] [id number] [place] [address] Sep, [facility] [id number] [place] [address] [id number] Sep, Other chronic pain 338.29 [facility] [id number] [place] [address] [id number] Aug, Diabetes type 2, uncontrolled E11.65 and Morbid obesity due to excess calories E66.01 [facility] [id number] [place] [id number] Aug, Hair loss L65.9 [facility] [id number] [place] [address] [id number] Aug, [facility] [id number] [place] [address] Jul, [facility] [id number] [place] [address] [id number] Jul, [facility] [id number] [place] [id number] Jun, [facility] [id number] [place] [id number] Jun, Hair loss L65.9 and Disorder of the skin and subcutaneous tissue, unspecified L98.9 [facility] [id number] [place] [id number] May, Type 2 diabetes mellitus with other diabetic kidney complication E11.29 ; Type 2 diabetes mellitus with hyperglycemia E11.65 ; Morbid obesity due to excess calories E66.01 and Essential hypertension I10 [address] [place] [address] [id number] May, Diabetes type 2, uncontrolled E11.65 ; Encounter for immunization Z23 and Morbid obesity due to excess calories E66.01 [facility] [id number] [place] [address] [id number] May, 2015 [facility] [address] [address]- 2572 Apr, [id number] [place] [address] [id number] Apr, Hyperglycemia R73.[id number] Apr, [address] [id number] Apr, Depression F32.9 ; Encounter for immunization Z23 ; Hyperglycemia R73.9 and Anemia in other chronic diseases classified elsewhere D63.8 [facility] [id number] [place] [address] [id number] Mar, [address] [place] [address] [id number] Feb, Positive occult stool blood test 792.1 [address] [place] [address] [id number] Feb, Depression 311 ; Other chronic pain 338.29 and Diabetes with renal manifestations, type II or unspecified type, not stated as uncontrolled 250.40 [facility] [address] [place] [address] 36356- 7673 Feb, Occult blood in stools 792.1 [address] [place] [address] [id number] Feb, Anemia 285.9 ; Occult blood positive stool 792.1 ; Unspecified essential hypertension 401.9 and Other chronic pain 338.29 [address] [place] [address] [id number] Feb, [id number] [place] [address] [id number] Feb, Anemia 285.9 [facility] [id number] [place] [id number] Feb, [facility] [id number] [place] [address] [id number] Feb, [facility] [id number] [place] [id number] Feb, Diabetes with renal manifestations, type II or unspecified type, not stated as uncontrolled 250.40 ; Other chronic pain 338.29 ; Unspecified essential hypertension 401.9 ; Anemia 285.9 and Depression 311 [facility] [place] [id number] [place] [id number] Jan, [facility] [place] [id number] [place] [address] [id number] Jan, Anemia 285.9 and Follow up V67.9 [facility] [place] [id number] [place] [id number] Jan, [facility] [place] [id number] [place] [address] [id number] Jan, [facility] [place] [id number] [place] 075937892 Jan, [facility] [place] [id number] [place] [address] [id number] Dec, [facility] [id number] [place] [address]42- 2546 Oct, [facility] [id number] [place] [address] 49586- 5389 Oct, [facility] [id number] [place] [address] 92836 2546 Sep, [facility] [place] [id number] [place] [id number] Sep, [facility] [id number] [place] [address] 06512- 3219 Sep, [facility] [id number] [place] [id number] Aug, [facility] [address] [id number] [address] Aug, 2014 [facility] [place] [facility] [address] [facility] [id number] [place] [address]- 478[address] Aug, [facility] [place] [address] [facility] [id number] [place] [id number] Aug, [facility] [place] [facility] [id number] [place] [address]- 5630 Aug, [facility] [place] [facility] [address] [facility] [id number][place] [address]- 1480 Aug, [facility] [place] [address] [facility] [id number] [place] [id number] Aug, [facility] [place] [facility] [address] [id number] [place] [address]- 1669 Aug, [facility] [place] [id number] [place] [id number] Jul, [facility] [place] [facility] [address] [id number] [address]- 0542 Jul, [facility] [place] [facility] [address]00565100[place], [place] [address]- 5335 Jul, [facility] [place] [address] [facility] [id number] [place] [id number] Jul, [facility] [place] [facility] [address]00565100[place], [place] [address]- 9602 Jul, [facility] [place] [address] [facility] [id number] [place] [id number] Jul, [facility] [place] [facility] [address] [facility] [id number][place] [address]- 0096 Jul, [facility] [place] [address] [id number] [place] [id number] Jun, [facility] [place] [address] [facility] [id number] [place] 036669424 Jun, [facility] [place] [facility] [address] [id number] [address]- 2588 Jun, [facility] [place] [facility] [address] [facility] [id number], [place] [address]- 1831 Jun, [facility] [place] [address] [facility] [id number] [place] [id number] Jun, [facility] [place] [facility] [address] [facility] [id number][place] [address]- 9576 Jun, [facility] [place] [address] [facility] [id number] [place] [id number] May, [facility] [place] [facility] [address] [facility] [id number][place] [address]- 1491 May, [facility] [place] [facility] [address] [facility] [id number][place] [address]- 0667 May, [facility] [place] [address] [facility] [id number] [place] [id number] Apr, [facility] [place] [facility] [address] [facility] [id number][place] [address]- 3864 Apr, [facility] [place] [address] [facility] [id number] [place] [id number] Apr, [facility] [place] [address] [facility] [id number] [place] [id number] Apr, [facility] [place] [facility] [address] [facility] [id number], [place] [address]- 6416 Apr, [facility] [place] [facility] [address] [facility] [id number], [place] [address]- 4943 Apr, [facility] [place] [address] [facility] [id number] [place] [id number] Mar, [facility] [place] [facility] [address] [facility] [id number], [place] [address]- 6117 Mar, [facility] [place] [address] [facility] [id number] [place] [id number] Mar, [facility] [place] [facility] [address] [facility] [id number][place] [address]- 1809 17 Mar, 2014 [facility] [place] [address] [facility] [id number] [place] [id number] Mar, [facility] [place] [facility] [address] [id number] [place] [address]- 6603 Mar, [facility] [place] [address] [id number] [place] [id number] Mar, [facility] [place] [facility] [address] [facility] [id number] [place] [address]- 5416 Mar, [facility] [place] [address] [id number] [place] [id number] Mar, [facility] [place] [facility] [address] [id number] [place] [address]- 3929 Mar, [facility] [place] [address] [id number] [place] [id number] Feb, [facility] [place] [facility] [address] [facility] [id number] [place] [address]- 3726 Feb, [facility] [place] [address] [facility] [id number] [place] [id number] Jan, [facility] [place] [facility] [address] [facility] [id number][place] [address]- 3861 Jan, [facility] [place] [address] [facility] [id number] [place] 752184094 Jan, [facility] [place] [facility] [address] [facility] [id number][place] [address]- 9739 Jan, [facility] [place] [address] [id number] [place] [id number] Jan, [facility] [place] [facility] [address] [facility] [id number][place] [address]- 3149 Jan, [facility] [place] [facility] [address] [facility] [id number][place] [address]- 8090 Dec, [facility] [place] [facility] [address] [facility] [id number][place] [address]- 0961 Dec, [facility] [place] [address] [facility] [id number] [place] [id number] November, [facility] [place] [facility] [address] [facility] [id number][place] [address]- 3178 November, [facility] [place] [address] [facility] [id number] [place] [id number] November, [facility] [place] [facility] [address] [id number] [place] [address]- 1829 November, [facility] [place] [address] [facility] [id number] [place] [id number] Oct, [facility] [place] [facility] [address] [facility] [id number] [place] [address]- 4063 Oct, [facility] [place] [facility] [address] [facility] [id number] [place] [address]- 8896 Oct, [facility] [place] [facility] [address] [facility] [id number] [place] [address]- 9990 Oct, [facility] [place] [facility] [address] [id number] [place] [address]- 6614 Oct, [facility] [place] [facility] [address] [id number] [place] [address]- 7954 Oct, [facility] [place] [address] [facility] [id number] [place] [id number] Sep, [facility] [place] [address] [facility] [id number] [place] [id number] Sep, [facility] [place] [facility] [address] [facility] [id number] [place] [address]- 7492 Sep, [facility] [place] [facility] [address] [facility] [id number][place] [address]- 2866 Sep, [facility] [place] [address] [facility] [id number] [place] [id number] Sep, [facility] [place] [facility] [address] [facility] [id number] [place] [address]- 4641 Sep, [facility] [place] [facility] [address] [facility] [id number] [place] 74796886- 4574 Aug, [facility] [place] [facility] [address] [id number] [place] [address]- 9762 Aug, [facility] [place] [address] [id number] [place] [id number] Aug, [facility] [place] [address] [facility] [id number] [place] [id number] Aug, [facility] [place] [facility] [address] [facility] [id number][place] [address]- 2546 Aug, [facility] [place] [address] [facility] [id number] [place] [id number] Aug, [facility] [place] [facility] [address] [facility] [id number][place] [address]- 1876 Aug, [facility] [place] [address] [facility] [id number] [place] [id number] Aug, [facility] [place] [facility] [address]00565100[place] [address]- 0826 Aug, [facility] [place] [id number] [place] [id number] Aug, [facility] [place] [facility] [address]00565100[place] [address]- 0789 Aug, [facility] [place] [address] [facility] [id number] [place] [id number] Aug, [facility] [place] [facility] [address]00565100[place], [place] [address]- 3956 Aug, [facility] [place] [facility] [address] [id number] [address]- 0543 Jul, [facility] [place] [address] [facility] [id number] [place] 988986296 Jun, [facility] [place] [facility] [address] [facility] [id number][place] [address]- 4675 Jun, [facility] [place] [facility] [address] [facility] [id number][place] [address]- 5896 Jun, [facility] [place] [facility] [address] [id number] [address]- 9002 Jun, [facility] [place] [address] [facility] [id number] [place] [id number] Jun, [facility] [address] [facility] [id number][place] [address]- 8846 Jun, [facility] [place] [facility] [address] [facility] [id number] [address] 2546 Jun, [facility] [place] [address] [facility] [id number] [place] [id number] Jun, [facility] [place] [facility] [address] [facility] [id number] [address]- 6196 Jun, [facility] [place] [facility] [address] [facility] [id number][place] [address]- 4524 May, [facility] [place] [address] [facility] [id number] [place] [id number] May, [facility] [place] [facility] [address]00565100[place], [place] [address]- 0266 May, [facility] [place] [facility] [address] [id number] [address]- 7213 May, [facility] [place] [facility] [address] [id number] [address]- 5955 May, [facility] [place] [facility] [address] [id number] [address]- 7544 May, [facility] [place] [address] [facility] [id number] [place] 637434278 May, [facility] [place] [facility] [address] [facility] [id number] [address]- 4546 May, [facility] [place] [address] [facility] [id number] [place] [id number] May, [facility] [place] [facility] [address] [facility] [id number][place] [address]- 2546 May, [facility] [place] [address] [facility] [id number] [place] [id number] Apr, [facility] [place] [facility] [address] [id number] [address]- 4593 Apr, [facility] [address] [id number], [place] [address]- 6469 Apr, [facility] [place] [address] [facility] [id number] [place] 849803813 Apr, [facility] [place] [facility] [address] [id number], [place] [address]- 0353 Apr, [facility] [place] [facility] [address] [id number], [place] [address]- 0944 Apr, [facility] [place] [address] [facility] [id number] [place] 612929113 Apr, [facility] [place] [facility] [address] [id number], [place] [address]- 2377 Apr, [facility] [place] [facility] [address] [facility] [id number], [place] 022911- 7727 Apr, [facility] [place] [facility] [address] [facility] [id number], [place] 959931- 4653 Apr, [facility] [place] [address] [facility] [id number] [place] 965523117 Apr, [facility] [place] [facility] [address] [id number], [place] [address]- 9431 Apr, [facility] [place] [address] [facility] [id number] [place] [id number] Apr, [facility] [place] [facility] [address] [facility] [id number], [place] [address]- 2032 Apr, [facility] [place] [address] [facility] [id number] [place] 418817568 Apr, [facility] [place] [facility] [address] [facility] [id number][place] [address]- 6572 Apr, [facility] [place] [facility] [address] [facility] [id number][place] [address]- 4341 Apr, [facility] [place] [facility] [address] [id number], [place] [address]- 2832 Apr, [facility] [place] [address] [id number] [place] [id number] Apr, [facility] [address] [facility] [id number][place] [address]- 2169 Mar, [facility] [address] [facility] [id number], [place] [address]- 1369 Mar, [facility] [place] [address] [id number] [place] [id number] Mar, [facility] [place] [address] [id number] [place] 665242087 Mar, [facility] [place] [address] [id number] [place] [id number] Mar, [facility] [place] [address] [id number] [place] [id number] Feb, [facility] [place] [address] [id number] [place] [id number] Feb, [facility] [place] [address] [id number] [place] 935402972 Feb, [facility] [address] [facility] [id number], [place] [address]- 5316 Feb, [facility] [place] [address] [id number] [place] [id number] Feb, [facility] [place] [address] [id number] [place] [id number] Feb, [facility] [place] [address] [id number] [place] [id number] Feb, [facility] [place] [address] [id number] [place] [id number] Feb, [facility] [place] [address] [id number] [place] [id number] Feb, [facility] [place] [address] [id number] [place] [id number] Jan, [facility] [place] [address] [id number] [place] [id number] Jan, [facility] [place] [address] [id number] [place] 848691874 Jan, [facility] [place] [address] [id number] [place] [id number] Jan, [facility] [place] [address] [id number] [place] [id number] Jan, [facility] [address] [facility] [id number][place] [address]- 6266 Jan, [facility] [place] [address] [id number] [place] 487950026 Jan, [facility] [place] [address] [id number] [place] [id number] Jan, [facility] [place] [address] [id number] [place] 217384468 Dec, [facility] [place] [address] [id number] [place] [id number] November, [facility] [place] [address] [id number] [place] [id number] November, [facility] [address] [id number] [place] [id number] November, [facility] [place] [address] [id number] [place] [id number] November, [facility] [place] [address] [id number] [place] [id number] November, [facility] [place] [address] [id number] [place] [id number] November, [facility] [place] [address] [id number] [place] [id number] Jul, [facility] [place] [address] [id number] [place] [id number] Jul, [facility] [place] [address] [id number] [place] [id number] Jul, [facility] [place] [address] [id number] [place] [id number] Jun, [facility] [address]00565100[place], [place] [address]- 9576 Jun, [facility] [place] [address] [id number] [place] [id number] May, [facility] [address]00565100[place], [place] [address]- 3085 May, [facility] [place] [address] [id number] [place] 735778634 May, [facility] [place] [facility] [address] [facility] [id number], [place] [address]- 1719 May, [facility] [place] [address] [id number] [place] 108495396 May, [facility] [place] [facility] [address] [facility] [id number], [place] [address]- 3643 May, [facility] [place] [address] [id number] [place] 762378290 Apr, [facility] [place] [facility] [address] [facility] [id number] [place] [address] 35399- 1327 Apr, [facility] [place] [facility] [address] [id number] [address]- 5261 Apr, [facility] [place] [address] [id number] [place] [id number] Apr, [facility] [place] [address] [id number] [place] 201965494 Apr, [facility] [place] [facility] [address] [facility] [id number][place] [address]- 4169 Apr, [facility] [place] [facility] [address] [facility] [id number][place] [address]- 3037 Apr, [facility] [place] [address] [id number] [place] 262997417 Apr, [facility] [place] [facility] [address] [facility] [id number][place] [address]- 0663 Apr, [facility] [place] [address] [id number] [place] [id number] Apr, [facility] [place] [address] [id number] [place] 564246350 Apr, [facility] [place] [address] [id number] [place] [id number] Mar, [facility] [place] [address] [id number] [place] 536936424 Feb, [facility] [place] [address] [id number] [place] 2[place]851 Jan, [facility] [place] [address] [id number] [place] 507553762 Dec, [facility] [place] [address] [id number] [place] 020609342 Dec, [facility] [place] [address] [id number] [place] 687946610 Dec, [facility] [place] [address] [id number] [place] 384178586 Dec, [facility] [place] [address] [id number] [place] [id number] Dec, [facility] [place] [address] [id number] [place] 555262418 November, [facility] [place] [address] [id number] [place] [id number] November, [facility] [place] [address] [id number] [place] [id number] November, [facility] [address] [facility] [id number], [place] [address]- 2622 November, [facility] [place] [address] [id number] [place] [id number] November, [facility] [place] [address] [id number] [place] [id number] November, [facility] [place] [address] [id number] [place] [id number] Oct, [facility] [address] [id number] [place] [id number] Oct, [facility] [address] [id number] [place] [id number] Oct, [facility] [address] [id number] [place] [id number] Oct, [facility] [address] [id number] [place] [id number] Oct, [facility] [address] [id number] [place] [id number] Oct, [facility] [address] [facility] [id number] [place] [id number] Sep, [facility] [address] [id number] [place] [id number] Aug, [facility] [address] [id number] [place] [id number] Aug, [facility] [place] [address] [facility] [id number] [place] [id number] Jul, [facility] [place] [facility] [address] [facility] [id number] [place] [address] Jun, [facility] [place] [facility] [address] [facility] [id number] [place] [address], [place] [address] Jun, [facility] [place] [facility] [address] [facility] [id number] [place] [address] Jun, [facility] [place] [facility] [id number] [place] [address], [place] [address] Jun, [facility] [place] [facility] [address] [id number], [place] [address] May, [facility] [place] [facility] [id number] [place] [address] May, [facility] [place] [facility] [address] [id number] [address] Apr, [facility] [place] [facility] [id number], [place] [address] Apr, [facility] [place] [facility] [address] [facility] [id number], [place] [address] Apr, [facility] [place] [facility] [address] [facility] [id number], [place] [address] Feb, [facility] [place] [facility] [address] [facility] [id number], [place] [address] Aug, [facility] [place] [facility] [id number], [place] [address] Jul, [facility] [place] [facility] [address] [id number] [place] [address] 30 Jun, 2010 [facility] [place] [facility] [address] [id number] [place] [address] May, [facility] [place] [facility] [address] [id number] [place] [address] May, [facility] [place] [facility] [address] [id number] [place] [id number] May, [facility] [place] [facility] [address] [id number] [place] [address] May, [facility] [place] [facility] [address] [id number] [place] [address] May, [facility] [place] [facility] [address] [facility] [id number] [place] [address] Aug, [facility] [place] [facility] [address] [id number], [place] [address] Jun, [facility] [place] [facility] [address] [facility] [id number], [place] [address] Jun, [facility] [place] [facility] [address] [facility] [id number], [place] [address] Jun, [facility] [place] [facility] [address] [facility] [id number], [place] [address] May, [facility] [place] [facility] [address] [id number], [place] [address] 28 Apr, 2009 [facility] [place] [facility] [address] [id number], [place] [address] Apr, [facility] [place] [facility] [address] [id number], [place] [address] 15 Apr, 2009 [facility] [place] [facility] [address] [facility] [id number], [place] [address] Jan, [facility] [place] [facility] [address] [id number], [place] [address] Oct, [facility] [address] [facility] [id number] [place] [address] May, [facility] [address] [facility] [id number] [place] [address] May, IMMUNIZATIONS No Known Immunizations SOCIAL HISTORY Never Assessed REASON FOR VISIT Refill request PLAN OF CARE VITAL SIGNS MEDICATIONS Medication Instructions Dosage Frequency Start Date End Date Duration Status Protonix 40 mg Orally Once a day- [...] Dialysis Ruthy Reveles 2012 -Dr. Simon now [facility] Medical History Colonoscopy (polyps 2 ) [...]
--- NOTE | 2017-12-22 19:47 | Diagnostic Imaging Report ---
PROCEDURE: CT chest, abdomen, and pelvis without contrast. TECHNIQUE: Multiple contiguous axial images were obtained through the chest, abdomen, and pelvis without the use of intravenous contrast. INDICATION: Continued illness with nausea, emesis, and diarrhea for four days associated with chest, abdominal, and pelvic pain. COMPARISON: Comparison is made to study of 07/23/2014. CT CHEST: There is generalized cardiomegaly with cardiac valvular calcification again noted. There is basilar atelectasis and/or pneumonitis in both lungs; however, no consolidation is identified. There is no significant pleural or pericardial fluid. No pathologic adenopathy is identified in the thorax. IMPRESSION: Dependent atelectasis and/or pneumonitis in both lungs without evidence of other acute abnormality in the thorax. CT ABDOMEN AND PELVIS: Unenhanced images of the liver reveal no focal abnormality; however, there is edema and/or inflammation in the region of gallbladder fossa as well as adjacent to the descending duodenum and pancreatic head. No focal fluid collection is identified. Unenhanced images reveal no definite splenic or adrenal gland abnormality. Kidneys are also stable and unremarkable in appearance. Multiple metallic fragments are seen in the right back, upper lumbar spine as well as retroperitoneum and left abdomen. No focal fluid collection is seen in the abdomen or pelvis. The bladder is decompressed around a Contreras catheter. There is edema and/or inflammation within the subcutaneous tissues of the abdomen and pelvis. IMPRESSION: Localized inflammation is seen in the right upper quadrant. This could be related to biliary tract inflammation or peptic ulcer disease at the level of the duodenum. Focal pancreatitis could have this appearance as well. No significant peritoneal fluid, abdominal abscess, or hematoma is appreciated. Dictated by: Dictated on workstation # [id number]
--- OUTSIDE RECORDS SUMMARY | 2017-12-22 19:47 | XMS REPORT ---
Author Author CHELSY VILLAFANA Organization [facility] Address [address] [place] [address] Care Team Providers Care [employer] System Operator Name Role Phone CHELSY VILLAFANA Unavailable PROBLEMS Type Condition ICD9-CM Code YBL87-CS Code Onset Dates Condition Status SNOMED Code Problem Chronic pain syndrome G89.4 Active 973098496 Problem Type 2 diabetes mellitus with hyperglycemia E11.65 Active 910108590272495 Problem Primary insomnia F51.01 Active 4121231 Problem Bilateral lower extremity edema R60.0 Active 331992472 Problem Anemia in other chronic diseases classified elsewhere D63.8 Active 364181033 Problem Supplemental oxygen dependent Z99.81 Active 760570999406 Problem Right carpal tunnel syndrome G56.01 Active 716111509389624 Problem 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 Active 587504029355653 Problem Paresthesia of right upper extremity R20.2 Active 44729443 Problem Chronic kidney disease, stage 4 (severe) N18.4 Active 971070429 Problem 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 Active 361543173 Problem Psoriasis of scalp L40.9 Active 091944792 Problem Gastroesophageal reflux disease without esophagitis K21.9 Active 964293508 Problem Chronic obstructive pulmonary disease, unspecified COPD type J44.9 Active 74737010 Problem Type 2 diabetes mellitus with other diabetic kidney complication E11.29 Active 366478025 Problem Diabetic polyneuropathy associated with type 2 diabetes mellitus E11.42 Active 43070828 Problem History of DVT (deep vein thrombosis) Z86.718 Active 656499262 Problem senior living current use of anticoagulant Z79.01 Active 526256431 Problem Oxygen desaturation during sleep G47.34 Active 250050046 Problem Essential hypertension I10 Active 85732859 Problem Depression, unspecified depression type F32.9 Active 13419615 Problem Sleep apnea in adult G47.33 Active 97839102 ALLERGIES No Information ENCOUNTERS Encounter Location Date Diagnosis [facility] [address] [id number] [place] [id number] Oct, Bilateral lower extremity edema R60.0 [address], [place] [address] Oct, [address], [place] [address] Sep, Type 2 diabetes mellitus with other diabetic kidney complication E11.29 and Chronic obstructive pulmonary disease, unspecified COPD type J44.9 [address] [address], [place] [address] 15 Aug, 2017 Type 2 diabetes mellitus with other diabetic kidney complication E11.29 [address] [address] [place] [address] 33871- 8855 12 Aug, 2017 Gastroesophageal reflux disease without esophagitis K21.9 ; senior living current use of anticoagulant Z79.01 ; Chronic pain syndrome G89.4 ; Essential hypertension I10 and Type 2 diabetes mellitus with other diabetic kidney complication E11.29 [address] [place] [address], [place] [address] 08 Aug, 2017 Chronic pain syndrome G89.4 [address] [address], [place] [address] 25[address] Aug, Type 2 diabetes mellitus with other diabetic kidney complication E11.29 [address] [place] [address], [place] [address] 6[address] Jul, Diabetic polyneuropathy associated with type 2 diabetes mellitus E11.42 [id number], [place] [address] Jul, Primary insomnia F51.01 [address] [place] [address] [place] [address] 07031- 1972 Jul, [address], [place] [address] Jul, Type 2 diabetes mellitus with other diabetic kidney complication E11.29 and Chronic obstructive pulmonary disease, unspecified COPD type J44.9 [address] [place] [address], [place] [address] 9330 Jul, Type 2 diabetes mellitus with other diabetic kidney complication E11.29 [address] [place] [address] [place] [address] 10638- 9716 Jun, Type 2 diabetes mellitus with other diabetic kidney complication E11.29 [address] [id number] [place] [address] 29973- 3605 Jun, [address] [place] [id number] [place] [address] 19429- 6336 Jun, Chronic obstructive pulmonary disease, unspecified COPD type J44.9 [id number] [place] [address] 90703- 5511 May, Type 2 diabetes mellitus with other diabetic kidney complication E11.29 [id number] [place] [address] 45851- 3997 May, 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 and Essential hypertension I10 [id number] [place] [address] 97101- 3349 May, Anemia in other chronic diseases classified elsewhere D63.8 ; Chronic obstructive pulmonary disease, unspecified COPD type J44.9 ; Oxygen desaturation during sleep G47.34 ; Sleep apnea in adult G47.33 and Supplemental oxygen dependent Z99.81 [address] [place] [address] 52951- 0348 May, Type 2 diabetes mellitus with other [...] legs R60.0 and Supplemental oxygen dependent Z99.81 [address] [place] [address] 22976- 9362 May, [facility] [id number] [place] [address] 96917- 1085 May, Essential hypertension I10 and Gastroesophageal reflux disease without esophagitis K21.9 [facility] [id number] [place] [address] 10467- 8848 May, [facility] [address] 28696- 6494 May, Type 2 diabetes mellitus with other diabetic kidney complication E11.29 and senior living current use of anticoagulant Z79.01 [address] [place] [id number] [place] [address] 25771- 8588 Apr, Chronic pain syndrome G89.4 and Essential hypertension I10 [address] [address] 31519- 6500 Apr, Type 2 diabetes mellitus with other diabetic kidney complication E11.29 [facility] [id number] [place] [address] 69482- 7262 Apr, Type 2 diabetes mellitus with other diabetic kidney complication E11.29 [facility] [id number] [place] [address] 31086- 0358 Apr, Essential hypertension I10 [facility] [id number] [place] [address] 42235- 7584 Apr, Gastroesophageal reflux disease without esophagitis K21.9 [facility] [id number] [place] [address] 95556- 6536 Apr, Type 2 diabetes mellitus with other diabetic kidney complication E11.29 [facility] [id number] [place] [address] 24996- 7012 Apr, Type 2 diabetes mellitus with other diabetic kidney complication E11.29 and 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 [facility] [id number] [place] [address] 69629- 6020 Mar, Encounter for immunization Z23 and Preoperative examination Z01.818 [address] [address] [place] [address] 98474- 7558 Mar, [address] [id number] [place] [address] 20334- 4863 Mar, Type 2 diabetes mellitus with other diabetic kidney complication E11.29 [address] [id number] [place] [address] 21640- 7207 08 Mar, 2017 Type 2 diabetes mellitus with other diabetic kidney complication E11.29 [place] [id number] [place] [address] 89287- 9926 Mar, Gastroesophageal reflux disease without esophagitis K21.9 [address] [id number] [place] [address] 52007- 9227 Mar, Essential hypertension I10 [address] [id number] [place] [address] 53829- 7816 Feb, senior living current use of anticoagulant Z79.01 [address] [id number] [place] [address] 26058- 9612 Feb, Type 2 diabetes mellitus with other diabetic kidney complication E11.29 [address] [id number] [place] [address] 79692- 7287 Feb, Type 2 diabetes mellitus with other diabetic kidney complication E11.29 [place] [id number] [place] [address] 89913- 7657 Feb, Type 2 diabetes mellitus with other diabetic kidney complication E11.29 [place] [id number] [place] [address] 84767- 8269 Feb, Gastroesophageal reflux disease without esophagitis K21.9 [facility] [id number] [place] [address] 36227- 5141 Feb, Type 2 diabetes mellitus with other diabetic kidney complication E11.29 [address] [id number] [place] [address] 36099- 0468 Feb, 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 [place] [address], [place] [address] 2198 Jan, 2017 Type 2 diabetes mellitus with other diabetic kidney complication E11.29 [facility] [address], [place] [address] 2546 Jan, Type 2 diabetes mellitus with other diabetic kidney complication E11.29 [facility] [address], [place] [address]- 0510 Jan, Chronic pain syndrome G89.4 [facility] [address], [place] [address] 2548 Jan, [facility] [address] [place] [address] 08193- 6912 Jan, [facility] [address] [place] [address] 05545- 4574 Jan, [facility] [id number] [address] 7272 Jan, [facility] [address], [place] [address]- 8245 Jan, Primary insomnia F51.01 ; Type 2 diabetes mellitus with other diabetic kidney complication E11.29 ; Chronic pain syndrome G89.4 and Essential hypertension I10 [facility] [address], [place] [address]- 3054 Jan, Primary insomnia F51.01 [facility] [address], [place] [address]- 2511 Jan, Type 2 diabetes mellitus with other diabetic kidney complication E11.29 [facility] [address], [place] [address]- 9359 Jan, [facility] [address] [address] Jan, Chronic obstructive pulmonary disease, unspecified COPD type J44.9 [facility] [address], [place] [address]- 5242 Jan, Essential hypertension I10 ; Type 2 diabetes mellitus with other diabetic kidney complication E11.29 ; Chronic obstructive pulmonary disease, unspecified COPD type J44.9 ; Chronic kidney disease, stage 4 (severe) N18.4 ; Right carpal tunnel syndrome G56.01 ; 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 ; senior living (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 and Diabetic polyneuropathy associated with type 2 diabetes mellitus E11.42 [facility] [id number] [place] [address] 78260- 2039 Jan, Gastroesophageal reflux disease without esophagitis K21.9 [facility] [id number] [place] [address] 22603- 8358 Dec, [facility] [id number] [place] [address] 58612- 2404 Dec, [facility] [id number] [place] [address] 12138- 4309 Dec, senior living current use of anticoagulant Z79.01 ; Chronic pain syndrome G89.4 and Essential hypertension I10 [facility] [id number] [place] [address] 39370- 4466 Dec, [facility] [id number] [place] [address] 90041- 2505 Dec, Type 2 diabetes mellitus with other diabetic kidney complication E11.29 [facility] [id number] [place] [address] 44673- 0505 Dec, [facility] [id number] [place] [address] 07172- 1999 Dec, Gastroesophageal reflux disease without esophagitis K21.9 [facility] [id number] [place] [address] 41331- 8504 November, Type 2 diabetes mellitus with other diabetic kidney complication E11.29 [facility] [id number] [place] [address] 54289- 8243 November, [facility] [address] [place] [address]- 4605 November, Type 2 diabetes mellitus with other diabetic kidney complication E11.29 [facility] [address], [place] [address]- 9943 November, [facility] [address], [place] [address]- 0680 November, Type 2 diabetes mellitus with other diabetic kidney complication E11.29 [facility] [id number] [address]- 1226 November, [facility] [address] [place] [address] 20334- 7806 Oct, Essential hypertension I10 [facility] [id number] [place] [address] 72962- 4046 Oct, Psoriasis of scalp L40.9 [facility] [id number] [place] [address] 71641- 7275 Oct, Essential hypertension I10 and Chronic pain syndrome G89.4 [facility] [address], [place] [address]- 6776 Oct, [facility] [address], [place] [address]- 7194 Sep, Type 2 diabetes mellitus with other diabetic kidney complication E11.29 [facility] [address], [place] [address]- 9941 Sep, [facility] [address], [place] [address]- 2128 Sep, Type 2 diabetes mellitus with other diabetic kidney complication E11.29 [facility] [address], [place] [address]- 0185 Sep, Type 2 diabetes mellitus with other diabetic kidney complication E11.29 [facility] [address], [place] [address]- 4586 Sep, Type 2 diabetes mellitus with other [...] and Psoriasis of scalp L40.9 [address] 63654- 2079 Sep, [address] 83096- 0325 Aug, Essential hypertension I10 [address] 11096- 7079 Aug, History of DVT (deep vein thrombosis) Z86.718 [address] [address] 29700- 6171 Aug, [place] [address] 92137- 9569 Jul, [address] [address] 82869- 5025 Jul, [address] [id number] [place] [address] 42458- 3976 Jul, 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 ; Chronic pain syndrome G89.4 and Chronic kidney disease, stage 4 (severe) N18.4 [address] [address] 98715- 9985 Jul, [address] [address] 71348- 7725 Jul, [address] [address] 22340- 7743 Jul, [address] [id number] [address]- 9576 Jul, [address] [address] [place] [address] 32540- 7985 Jul, [address] [id number] [place] [address] 89726- 0040 Jul, Type 2 diabetes mellitus with other diabetic kidney complication E11.29 [id number] [place] [address] 72837- 7491 16 Jul, 2016 History of DVT (deep vein thrombosis) Z86.718 [id number] [place] [address] 99086- 6041 Jun, [id number] [place] [address] 32821- 5284 Jun, History of DVT (deep vein thrombosis) Z86.718 [address] [place] [address] 12324- 4284 15 Jun, 2016 Post traumatic stress disorder (PTSD) F43.10 [address] [place] [address] 78886- 2939 07 Jun, 2016 Type 2 diabetes mellitus [...] pain M79.641 and Right wrist pain M25.5[id number] [place] [address]- 3975 May, [facility] [address] [place] [address]- 2575 May, [facility] [id number] [place] [address]- 0758 May, [facility] [id number] [place] [address], [place] [address]- 8647 15 May, 2016 [facility] [id number] [place] [address]- 4410 May, Anemia in other chronic diseases classified elsewhere D63.8 [facility] [address] [place] [address], [place] [address]- 0606 May, [facility] [address] [place] [address]- 5942 Apr, [facility] [address] [place] [address] 57795- 8505 27 Mar, 2016 Dermatofibroma D23.9 [facility] [address] [place] [address], [place] [address]- 1293 20 Mar, 2016 [facility] [address] [place] [address]- 1583 14 Mar, 2016 Chronic pain syndrome G89.4 [facility] [address] [place] [address] 2540 09 Mar, 2015 [facility] [address], [place] [address]- 2542 07 Mar, 2015 [facility] [address] [place] [address]- 3754 06 Mar, 2016 [facility] [address] [place] [address]- 2541 Feb, [facility] [address], [place] [address]- 2793 Feb, [facility] [address], [place] [address]- 2592 Feb, [address] [address], [place] [address]- 7836 Feb, [facility] [address], [place] [address]- 5735 Feb, [place] [address] [place] [address] 58713- 6109 Feb, [place] [address], [place] [address]- 2137 Feb, Type 2 diabetes mellitus with other [...] Renal failure, chronic, stage 4 (severe) N18.4 [place] [address], [place] [address]- 3382 Feb, Skin tags, multiple acquired L91.8 [place] [address], [place] [address]- 0546 Jan, [facility] [address] [address] Jan, Dental examination Z01.20 [place] [address], [place] [address]- 4411 Jan, [place] [address], [place] [address]- 3633 Jan, Type 2 diabetes mellitus with other [...] Renal failure, chronic, stage 4 (severe) N18.4 [facility] [id number] [place] [address] 46943- 8878 Dec, Diabetes type 2, uncontrolled E11.65 [place] [id number] [place] [address] 27412- 5688 Dec, [address] 49118- 4729 Dec, Type 2 diabetes mellitus with other diabetic kidney complication E11.29 ; Diabetic polyneuropathy associated with type 2 diabetes mellitus E11.42 ; Iron deficiency anemia due to chronic blood loss D50.0 ; Chronic obstructive pulmonary disease, unspecified COPD type J44.9 ; senior living current use of anticoagulant Z79.01 ; History of DVT (deep vein thrombosis) Z86.718 ; Chronic pain syndrome G89.4 ; Oxygen desaturation during sleep G47.34 ; Sleep apnea in adult G47.33 ; Gastroesophageal reflux disease without esophagitis K21.9 ; Essential hypertension I10 ; Primary insomnia F51.01 and Depression, unspecified depression type F32.9 [facility] [address] [id number] [address] Dec, Dental caries K02.9 [facility] [address] [id number] [place] [id number] Dec, [facility] [address] [place] [address] [id number] Dec, Dental examination Z01.20 [facility] [id number] [id number] November, Dental examination Z01.20 and Dental caries K02.9 [facility] [address] [id number] [place] [id number] Oct, [facility] [address] [id number] [place] [id number] Oct, [facility] [address] [id number] [place] [id number] Sep, [facility] [id number] [place] [address] [id number] Sep, [facility] [id number] [place] [address] Sep, [facility] [id number] [place] [address] [id number] Sep, Other chronic pain 338.29 [facility] [id number] [place] [address] [id number] Aug, Diabetes type 2, uncontrolled E11.65 and Morbid obesity due to excess calories E66.01 [facility] [id number] [place]ARY [place] [address] Aug, Hair loss L65.9 [facility] [id number] [place] [address] [id number] Aug, [facility] [id number] [place] [id number] Jul, [facility] [id number] [place] [address] [id number] Jul, [facility] [id number] [place] [id number] Jun, [facility] [id number] [place]ARY [place] [id number] Jun, Hair loss L65.9 and Disorder of the skin and subcutaneous tissue, unspecified L98.9 [facility] [id number] [place] [id number] May, Type 2 diabetes mellitus with other diabetic kidney complication E11.29 ; Type 2 diabetes mellitus with hyperglycemia E11.65 ; Morbid obesity due to excess calories E66.01 and Essential hypertension I10 [address] [place] [address] [id number] May, Diabetes type 2, uncontrolled E11.65 ; Encounter for immunization Z23 and Morbid obesity due to excess calories E66.01 [facility] [id number] [place] [address] [id number] May, 2015 [facility] [address] [address]- 4131 Apr, [id number] [place] [address] [id number] Apr, Hyperglycemia R73.[address] [id number] Apr, [address] [id number] Apr, Depression F32.9 ; Encounter for immunization Z23 ; Hyperglycemia R73.9 and Anemia in other chronic diseases classified elsewhere D63.8 [facility] [id number] [place] [address] [id number] Mar, [id number] [place] [address] [id number] Feb, Positive occult stool blood test 792.1 [id number] [place] [address] [id number] Feb, Depression 311 ; Other chronic pain 338.29 and Diabetes with renal manifestations, type II or unspecified type, not stated as uncontrolled 250.40 [facility] [address] [place] [address] 67340- 4813 Feb, Occult blood in stools 792.1 [id number] [place] [address] [id number] Feb, Anemia 285.9 ; Occult blood positive stool 792.1 ; Unspecified essential hypertension 401.9 and Other chronic pain 338.[address] [place] [address] [id number] Feb, [id number] [place] [address] [id number] Feb, Anemia 285.9 [facility] [id number] [place]ARY [place] [id number] Feb, [facility] [id number] [place] [address] [id number] Feb, [facility] [id number] [place]ARY [place] [id number] Feb, Diabetes with renal manifestations, type II or unspecified type, not stated as uncontrolled 250.40 ; Other chronic pain 338.29 ; Unspecified essential hypertension 401.9 ; Anemia 285.9 and Depression 311 [facility] [place] [id number] [place] [id number] Jan, [facility] [place] [id number] [place] [address] [id number] Jan, Anemia 285.9 and Follow up V67.9 [facility] [place] [id number] [place] [id number] Jan, [facility] [place] [id number] [place] [address] [id number] Jan, [facility] [place] [id number] [place] [id number] Jan, [facility] [place] [id number] [place] [address] [id number] Dec, [facility] [id number] [place] [address] 12367- 2546 Oct, [facility] [id number] [place] [address] 57519- 4851 Oct, [facility] [id number] [place] [address] 20255 2546 Sep, [facility] [place] [id number] [place] [id number] Sep, [facility] [id number] [place] [address] 28375- 6330 Sep, [facility] [id number] [place] [id number] Aug, [facility] [address] [id number] [address] Aug, 2014 [facility] [place] [facility] [address] [facility] [id number] [place] [address]- 7367 Aug, [facility] [place] [address] [facility] [id number] [place] [id number] Aug, [facility] [place] [facility] [address] [place] [address] 1186 Aug, [facility] [place] [facility] [address] [facility] [id number], [place] [address]- 6893 Aug, [facility] [place] [address] [facility] [id number] [place] [id number] Aug, [facility] [place] [facility] [address] [id number] [address]- 4325 Aug, [facility] [place] [id number] [place] [id number] Jul, [facility] [place] [facility] [address] [id number], [place] [address]- 1323 Jul, [facility] [place] [facility] [address]00565100[place], [place] [address] 4847 Jul, [facility] [place] [address] [facility] [id number] [place] [id number] Jul, [facility] [place] [facility] [address]00565100[place], [place] [address]- 2057 Jul, [facility] [place] [address] [facility] [id number] [place] [id number] Jul, [facility] [place] [facility] [address] [facility] [id number] [address]- 7182 Jul, [facility] [place] [address] [id number] [place]ARY [place] [id number] Jun, [facility] [place] [address] [facility] [id number] MARY OF [place] [id number] Jun, [facility] [place] [facility] [address] [id number], [place] [address]- 0337 Jun, [facility] [place] [facility] [address] [facility] [id number], [place] [address]- 2770 Jun, [facility] [place] [address] [facility] [id number] [place] [address] Jun, [facility] [place] [facility] [address] [facility] [id number], [place] [address]- 9506 Jun, [facility] [place] [address] [facility] [id number] [place] 880407508 May, [facility] [place] [facility] [address] [facility] [id number], [place] [address]- 6476 May, [facility] [place] [facility] [address] [facility] [id number] [address]- 9853 May, [facility] [place] [address] [facility] [id number] [place] 855236910 Apr, [facility] [place] [facility] [address] [facility] [id number], [place] [address]- 3863 Apr, [facility] [place] [address] [facility] [id number] MARY OF [place] [id number] Apr, [facility] [place] [address] [facility] [id number] [place] [id number] Apr, [facility] [place] [facility] [address] [facility] [id number], [place] [address]- 4961 Apr, [facility] [place] [facility] [address] [facility] [id number], [place] [address]- 7299 Apr, [facility] [place] [address] [facility] [id number] [place] [id number] Mar, [facility] [place] [facility] [address] [facility] [id number] [address]- 8069 Mar, [facility] [place] [address] [facility] [id number] [place] [id number] Mar, [facility] [place] [facility] [address] [facility] [id number], [place] [address]- 3165 17 Mar, 2014 [facility] [place] [address] [facility] [id number] [place] [id number] Mar, [facility] [place] [facility] [address] [id number] [place] [address]- 2491 Mar, [facility] [place] [address] [id number] [place] [id number] Mar, [facility] [place] [facility] [address] [facility] [id number] [place] [address]- 5716 Mar, [facility] [place] [address] [id number] [place] [id number] Mar, [facility] [place] [facility] [address] [id number] [place] [address]- 9883 Mar, [facility] [place] [address] [id number] [place] [id number] Feb, [facility] [place] [facility] [address] [facility] [id number] [place] [address]- 6296 Feb, [facility] [place] [address] [facility] [id number] [place] [id number] Jan, [facility] [place] [facility] [address] [facility] [id number] [address]- 3888 Jan, [facility] [place] [address] [facility] [id number] [place] [id number] Jan, [facility] [place] [facility] [address] [facility] [id number], [place] [address]- 1279 Jan, [facility] [place] [address] [id number] [place] [id number] Jan, [facility] [place] [facility] [address] [facility] [id number] [address]- 9778 Jan, [facility] [place] [facility] [address] [facility] [id number], [place] [address]- 9027 Dec, [facility] [place] [facility] [address] [facility] [id number], [place] [address]- 0001 Dec, [facility] [place] [address] [facility] [id number] [place] [id number] November, [facility] [place] [facility] [address] [facility] [id number], [place] [address]- 4325 November, [facility] [place] [address] [facility] [id number] [place] 713715151 November, [facility] [place] [facility] [address] [id number] [place] [address]- 3723 November, [facility] [place] [address] [facility] [id number] [place] [id number] Oct, [facility] [place] [facility] [address] [facility] [id number] [place] [address]- 7447 Oct, [facility] [place] [facility] [address] [facility] [id number] [place] [address]- 3088 Oct, [facility] [place] [facility] [address] [facility] [id number] [place] [address]- 3645 Oct, [facility] [place] [facility] [address] [id number] [address]- 9209 Oct, [facility] [place] [facility] [address] [id number] [address]- 5372 Oct, [facility] [place] [address] [facility] [id number] [place] 192629216 Sep, [facility] [place] [address] [facility] [id number] [place] [id number] Sep, [facility] [place] [facility] [address] [facility] [id number] [place] [address]- 0017 Sep, [facility] [place] [facility] [address] [facility] [id number], [place] [address]- 3688 Sep, [facility] [place] [address] [facility] [id number] [place] 834630113 Sep, [facility] [place] [facility] [address] [facility] [id number] [place] [address]- 7659 Sep, [facility] [place] [facility] [address] [facility] [id number] [place] 988120[place]- 6690 Aug, [facility] [place] [facility] [address] [id number] [place] [address]- 6355 Aug, [facility] [place] [address] [id number] [place] [id number] Aug, [facility] [place] [address] [facility] [id number] [place] 569230925 Aug, [facility] [place] [facility] [address] [facility] [id number] [address]- 2546 Aug, [facility] [place] [address] [facility] [id number] [place] [id number] Aug, [facility] [place] [facility] [address] [facility] [id number], [place] [address]- 9566 Aug, [facility] [place] [address] [facility] [id number] [place] 711446754 Aug, [facility] [place] [facility] [address]00565100[place], [place] [address]- 1466 Aug, [facility] [place] [id number] [place] [id number] Aug, [facility] [place] [facility] [address]00565100[place], [place] [address]- 3664 Aug, [facility] [place] [address] [facility] [id number] [place] [id number] Aug, [facility] [place] [facility] [address]00565100[place], [place] [address]- 7946 Aug, [facility] [place] [facility] [address] [id number], [place] [address]- 8144 Jul, [facility] [place] [address] [facility] [id number] [place] [id number] Jun, [facility] [place] [facility] [address] [facility] [id number], [place] [address]- 7526 Jun, [facility] [place] [facility] [address] [facility] [id number] [address]- 8176 Jun, [facility] [place] [facility] [address] [id number], [place] [address]- 0744 Jun, [facility] [place] [address] [facility] [id number] [place] 784141554 Jun, [facility] [address] [facility] [id number], [place] [address]- 5886 Jun, [facility] [place] [facility] [address] [facility] [id number], [place] [address] 2546 Jun, [facility] [place] [address] [facility] [id number] [place] 914327788 Jun, [facility] [place] [facility] [address] [facility] [id number], [place] [address]- 5746 Jun, [facility] [place] [facility] [address] [facility] [id number], [place] [address]- 2043 May, [facility] [place] [address] [facility] [id number] [place] 049354937 May, [facility] [place] [facility] [address]00565100[place], [place] [address]- 7246 May, [facility] [place] [facility] [address] [id number], [place] [address]- 0493 May, [facility] [place] [facility] [address] [id number], [place] [address]- 7535 May, [facility] [place] [facility] [address] [id number], [place] [address]- 9908 May, [facility] [place] [address] [facility] [id number] [place] [id number] May, [facility] [place] [facility] [address] [facility] [id number], [place] [address]- 3036 May, [facility] [place] [address] [facility] [id number] [place] [id number] May, [facility] [place] [facility] [address] [facility] [id number], [place] [address]- 2546 May, [facility] [place] [address] [facility] [id number] [place] 812751792 Apr, [facility] [place] [facility] [address] [id number], [place] [address]- 2079 Apr, [facility] [address] [id number], [place] [address]- 3285 Apr, [facility] [place] [address] [facility] [id number] [place] 151239387 Apr, [facility] [place] [facility] [address] [id number], [place] [address]- 8543 Apr, [facility] [place] [facility] [address] [id number], [place] [address]- 3630 Apr, [facility] [place] [address] [facility] [id number] [place] 904680421 Apr, [facility] [place] [facility] [address] [id number], [place] [address]- 5068 Apr, [facility] [place] [facility] [address] [facility] [id number], [place] 250201- 3645 Apr, [facility] [place] [facility] [address] [facility] [id number], [place] 482375- 0826 Apr, [facility] [place] [address] [facility] [id number] [place] 764382303 Apr, [facility] [place] [facility] [address] [id number], [place] [address]- 3874 Apr, [facility] [place] [address] [facility] [id number] [place] 345118500 Apr, [facility] [place] [facility] [address] [facility] [id number], [place] [address]- 3173 Apr, [facility] [place] [address] [facility] [id number] [place] 917988367 Apr, [facility] [place] [facility] [address] [facility] [id number], [place] [address]- 8436 Apr, [facility] [place] [facility] [address] [facility] [id number], [place] [address]- 4475 Apr, [facility] [place] [facility] [address] [id number], [place] [address]- 1697 Apr, [facility] [place] [address] [id number] [place] 564720568 Apr, [facility] [address] [facility] [id number], [place] [address]- 3239 Mar, [facility] [address] [facility] [id number], [place] [address]- 4500 Mar, [facility] [place] [address] [id number] [place] [id number] Mar, [facility] [place] [address] [id number] [place] 940449611 Mar, [facility] [place] [address] [id number] [place] [id number] Mar, [facility] [place] [address] [id number] [place] 879827225 Feb, [facility] [place] [address] [id number] [place] 416951180 Feb, [facility] [place] [address] [id number] [place] 719801363 Feb, [facility] [address] [facility] [id number], [place] [address]- 3266 Feb, [facility] [place] [address] [id number] [place] 942181818 Feb, [facility] [place] [address] [id number] [place] 186404785 Feb, [facility] [place] [address] [id number] [place] 724097233 Feb, [facility] [place] [address] [id number] [place] 126430142 Feb, [facility] [place] [address] [id number] [place] 951774026 Feb, [facility] [place] [address] [id number] [place] 303455661 Jan, [facility] [place] [address] [id number] [place] 894298560 Jan, [facility] [place] [address] [id number] [place] 530021942 Jan, [facility] [place] [address] [id number] [place] 833901613 Jan, [facility] [place] [address] [id number] [place] 289671740 Jan, [facility] [address] [facility] [id number], [place] [address]- 8166 Jan, [facility] [place] [address] [id number] [place] [id number] Jan, [facility] [place] [address] [id number] [place] 098173388 Jan, [facility] [place] [address] [id number] [place] 396642023 Dec, [facility] [place] [address] [id number] [place] 987764833 November, [facility] [place] [address] [id number] [place] 899579981 November, [facility] [place] [address] [id number] [place] 327923289 November, [facility] [place] [address] [id number] [place] 932909818 November, [facility] [place] [address] [id number] [place] 746296710 November, [facility] [place] [address] [id number] [place] 846258081 November, [facility] [place] [address] [id number] [place] 931366396 Jul, [facility] [place] [address] [id number] [place] 035493039 Jul, [facility] [place] [address] [id number] [place] 492351910 Jul, [facility] [place] [address] [id number] [place] 688991291 Jun, [facility] [address]00565100[place], [place] [address]- 5056 Jun, [facility] [place] [address] [id number] [place] 214852094 May, [facility] [address]00565100[place], [place] [address]- 9798 May, [facility] [place] [address] [id number] [place] 622721872 May, [facility] [place] [facility] [address] [facility] [id number], [place] [address]- 3553 May, [facility] [place] [address] [id number] [place] 029825145 May, [facility] [place] [facility] [address] [facility] [id number], [place] [address]- 8798 May, [facility] [place] [address] [id number] [place] 872522004 Apr, [facility] [place] [facility] [address] [facility] [id number] [place] [address] 66556- 9634 Apr, [facility] [place] [facility] [address] [id number], [place] [address]- 0803 Apr, [facility] [place] [address] [id number] [place] 729173901 Apr, [facility] [place] [address] [id number] [place] 070396195 Apr, [facility] [place] [facility] [address] [facility] [id number], [place] [address]- 3536 Apr, [facility] [place] [facility] [address] [facility] [id number], [place] [address]- 5587 Apr, [facility] [place] [address] [id number] [place] 410511394 Apr, [facility] [place] [facility] [address] [facility] [id number], [place] [address]- 6940 Apr, [facility] [place] [address] [id number] [place] 630198251 Apr, [facility] [place] [address] [id number] [place] 405865820 Apr, [facility] [place] [address] [id number] [place] 544173763 Mar, [facility] [place] [address] [id number] [place] 790986783 Feb, [facility] [place] [address] [id number] [place] 94[place]60273 Jan, [facility] [place] [address] [id number] [place] 245622447 Dec, [facility] [place] [address] [id number] [place] 504943300 Dec, [facility] [place] [address] [id number] [place] 569309804 Dec, [facility] [place] [address] [id number] [place] 871098383 Dec, [facility] [place] [address] [id number] [place] 300006711 Dec, [facility] [place] [address] [id number] [place] 882372658 November, [facility] [place] [address] [id number] [place] 775756884 November, [facility] [place] [address] [id number] [place] 411147815 November, [facility] [address] [facility] [id number], [place] [address]- 0666 November, [facility] [place] [address] [id number] [place] 945533226 November, [facility] [place] [address] [id number] [place] 855971494 November, [facility] [place] [address] [id number] [place] 479734440 Oct, [facility] [place] [address] [id number] [place] 351095432 Oct, [facility] [place] [address] [id number] [place] [id number] Oct, [facility] [place] [address] [id number] [place] 770358052 Oct, [facility] [place] [address] [id number] [place] 129642980 Oct, [facility] [place] [address] [id number] [place] 957753430 Oct, [facility] [place] [address] [facility] [id number] [place] 436878005 Sep, [facility] [place] [address] [id number] [place] [id number] Aug, [facility] [place] [address] [id number] [place] 349102029 Aug, [facility] [place] [address] [facility] [id number] [place] 777606769 Jul, [facility] [place] [facility] [address] [facility] [id number] [place] [address]- 5696 Jun, [facility] [place] [facility] [address] [facility] [id number] [place] [address], [place] [address]- 3716 Jun, [facility] [place] [facility] [address] [facility] [id number] [place] [address]- 3047 Jun, [facility] [place] [facility] [id number] [place] [address], [place] [address] 14[address] Jun, [facility] [place] [facility] [address] [id number] [address] May, [facility] [place] [facility] [id number] [place] [address] May, [facility] [place] [facility] [address] [id number] [address] Apr, [facility] [place] [facility] [id number], [place] [address] Apr, [facility] [place] [facility] [address] [facility] [id number], [place] [address] Apr, [facility] [place] [facility] [address] [facility] [id number], [place] [address] Feb, [facility] [place] [facility] [address] [facility] [id number], [place] [address] Aug, [facility] [place] [facility] [id number] [address] Jul, [facility] [place] [facility] [address] [id number] [place] [address] 30 Jun, 2010 [facility] [place] [facility] [address] [id number] [place] [address] May, [facility] [place] [facility] [address] [id number] [place] [address] May, [facility] [place] [facility] [address] [id number] [place] [address] May, [facility] [place] [facility] [address] [id number] [place] [address] May, [facility] [place] [facility] [address] [id number] [place] [address] May, [facility] [place] [facility] [address] [facility] [id number] [place] [address] Aug, [facility] [place] [facility] [address] [id number], [place] [address] Jun, [facility] [place] [facility] [address] [facility] [id number], [place] [address] Jun, [facility] [place] [facility] [address] [facility] [id number], [place] [address] Jun, [facility] [place] [facility] [address] [facility] [id number], [place] [address] May, [facility] [place] [facility] [address] [id number], [place] [address] 28 Apr, 2009 [facility] [place] [facility] [address] [id number], [place] [address] Apr, [facility] [place] [facility] [address] [id number], [place] [address] 15 Apr, 2009 [facility] [place] [facility] [address] [facility] [id number], [place] [address] Jan, [facility] [place] [facility] [address] [id number], [place] [address] Oct, [facility] [address] [facility] [id number] [place] [address] May, [facility] [address] [facility] [id number], [place] [address] May, IMMUNIZATIONS No Known Immunizations SOCIAL HISTORY [...] Dialysis [facility] 2012 -Dr. Simon now [facility] Medical History Colonoscopy (polyps 2 ) [...]
--- OUTSIDE RECORDS SUMMARY | 2017-12-22 19:49 | XMS REPORT ---
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 Active 624947208 Problem 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 Active 004384252048832 Problem Chronic kidney disease, stage 4 (severe) N18.4 Active 336544441 Problem Type 2 diabetes mellitus with hyperglycemia E11.65 Active 456393129782191 Problem Psoriasis of scalp L40.9 Active 660303444 Problem Paresthesia of right upper extremity R20.2 Active 31220556 Problem Diabetic polyneuropathy associated with type 2 diabetes mellitus E11.42 Active 73488793 Problem Gastroesophageal reflux disease without esophagitis K21.9 Active 086390832 Problem Anemia in other chronic diseases classified elsewhere D63.8 Active 669944304 Problem Type 2 diabetes mellitus with other diabetic kidney complication E11.29 Active 460568137 Problem Depression, unspecified depression type F32.9 Active 95860053 Problem History of DVT (deep vein thrombosis) Z86.718 Active 900431941 Problem Chronic obstructive pulmonary disease, unspecified COPD type J44.9 Active 41956773 Problem 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 Active 956958185 Problem Oxygen desaturation during sleep G47.34 Active 398231520 Problem Essential hypertension I10 Active 41054706 ALLERGIES No Information ENCOUNTERS Encounter Location Date Diagnosis [facility] [address] [facility] [id number] [id number] Oct, [place] [address] [address] Oct, [place] [address] [place] [id number] [place] [address] 08689- 6905 Sep, Type 2 diabetes mellitus with other diabetic kidney complication E11.29 and Chronic obstructive pulmonary disease, unspecified COPD type J44.9 [place] [address] [place] [id number] [place] [address] 29151- 0043 15 Aug, 2017 Type 2 diabetes mellitus with other diabetic kidney complication E11.29 [place] [address] [place] [id number] [place] [address] 92570- 0091 12 Aug, 2017 Gastroesophageal reflux disease without esophagitis K21.9 ; 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 ; Chronic pain syndrome G89.4 ; Essential hypertension I10 and Type 2 diabetes mellitus with other diabetic kidney complication E11.29 [place] [address] [place] [id number] [address] 4[address] 08 Aug, 2017 Chronic pain syndrome G89.4 [place] [address] [place] [id number] [place] [address] 00299- 8513 Aug, Type 2 diabetes mellitus with other diabetic kidney complication E11.29 [place] [address] [address] Jul, Diabetic polyneuropathy associated with type 2 diabetes mellitus E11.42 [place] [address] [address] 9425 Jul, Primary insomnia F51.01 [place] [address] [address] 8357 Jul, [place] [address] [place] [id number] [place] [address] 34846- 8641 Jul, Type 2 diabetes mellitus with other diabetic kidney complication E11.29 and Chronic obstructive pulmonary disease, unspecified COPD type J44.9 [place] [address] [place] [id number] [place] [address] 74492- 7661 Jul, Type 2 diabetes mellitus with other diabetic kidney complication E11.29 [place] [address] [place] [address] 09751- 8876 Jun, Type 2 diabetes mellitus with other diabetic kidney complication E11.29 [place] [address] [place] [id number] [address] 2694 Jun, [place] [address] [place] [id number] [place] [address] 33725- 4836 Jun, Chronic obstructive pulmonary disease, unspecified COPD type J44.9 [place] [id number] [place] [address] 59486- 7259 May, Type 2 diabetes mellitus with other diabetic kidney complication E11.29 [place] [address] [place] [id number] [place] [address] 32283- 3606 May, 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 and Essential hypertension I10 [place] [address] [place] [id number] [place] [address] 19586- 1101 May, Anemia in other chronic diseases classified elsewhere D63.8 ; Chronic obstructive pulmonary disease, unspecified COPD type J44.9 ; Oxygen desaturation during sleep G47.34 ; Sleep apnea in adult G47.33 and Supplemental oxygen dependent Z99.[address] [place] [address] 60981- 3943 May, Type 2 diabetes mellitus with other diabetic kidney complication E11.29 ; Essential hypertension I10 ; Chronic pain syndrome G89.4 ; BMI 40.0-44.9, adult Z68.41 ; Gastroesophageal reflux disease without esophagitis K21.9 ; retirement current use of anticoagulant Z79.01 ; retirement 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 ; Diabetic polyneuropathy associated with type 2 diabetes mellitus E11.42 ; Edema of both legs R60.0 and Supplemental oxygen dependent Z99.81 [place] [address] [address] 2741 May, [place] [address] [place] [id number] [place] [address] 09665- 1261 May, Essential hypertension I10 and Gastroesophageal reflux disease without esophagitis K21.9 [facility] [address] [place] [id number] [place] [address] 93418- 8301 May, [facility] [address] [place] [id number] [place] [address] 90682- 0906 May, Type 2 diabetes mellitus with other diabetic kidney complication E11.29 and retirement current use of anticoagulant Z79.01 [place] [address] [place] [id number] [place] [address] 40805- 8447 Apr, Chronic pain syndrome G89.4 and Essential hypertension I10 [place] [address] 11977- 9286 Apr, Type 2 diabetes mellitus with other diabetic kidney complication E11.29 [place] [address] 79795- 3642 Apr, Type 2 diabetes mellitus with other diabetic kidney complication E11.29 [place] [address] [place] [id number] [place] [address] 90563- 0986 Apr, Essential hypertension I10 [place] [address] [place] [id number] [place] [address] 68423- 6344 Apr, Gastroesophageal reflux disease without esophagitis K21.9 [place] [address] [place] [id number] [place] [address] 13911- 8763 Apr, Type 2 diabetes mellitus with other diabetic kidney complication E11.29 [facility] [address] [place] [id number] [place] [address] 56674- 2044 Apr, Type 2 diabetes mellitus with other diabetic kidney complication E11.29 and retirement current use of anticoagulant Z79.01 [facility] [address] [place] [id number] [place] [address] 96314- 3554 Mar, Encounter for immunization Z23 and Preoperative examination Z01.818 [place] [address] [place] [id number] [place] [address] 60468- 8910 Mar, [place] [address] [place] [address] 29934- 5051 Mar, Type 2 diabetes mellitus with other diabetic kidney complication E11.29 [facility] [address] [place] [id number] [place] [address] 31921- 3898 Mar, Type 2 diabetes mellitus with other diabetic kidney complication E11.29 [place] [address] [place] [id number] [place] [address] 35551- 3998 Mar, Gastroesophageal reflux disease without esophagitis K21.9 [place] [address] [place] [id number] [place] [address] 25630- 4136 Mar, Essential hypertension I10 [place] [address] [place] [id number] [place] [address] 84576- 3807 Feb, retirement current use of anticoagulant Z79.01 [place] [address] [place] [id number] [place] [address] 73896- 9406 Feb, Type 2 diabetes mellitus with other diabetic kidney complication E11.29 [place] [address] [place] [id number] [place] [address] 13138- 1902 Feb, Type 2 diabetes mellitus with other diabetic kidney complication E11.29 [place] [address] [place] [id number] [place] [address] 71513- 3307 Feb, Type 2 diabetes mellitus with other diabetic kidney complication E11.29 [place] [address] [place] [id number] [place] [address] 30139- 6383 Feb, Gastroesophageal reflux disease without esophagitis K21.9 [place] [address] [place] [id number] [place] [address] 70118- 3019 Feb, Type 2 diabetes mellitus with other diabetic kidney complication E11.29 [place] [address] [place] [id number] [place] [address] 46126- 6446 Feb, retirement current use of anticoagulant Z79.01 [place] [address] [place] [id number] [place] [address] 78079- 0757 Jan, Type 2 diabetes mellitus with other diabetic kidney complication E11.29 [facility] [address] [address]- 1691 Jan, 2017 Type 2 diabetes mellitus with other diabetic kidney complication E11.29 [facility] [address] [address]- 5788 Jan, Chronic pain syndrome G89.4 [facility] [address] [place] [id number] [address]- 1123 Jan, [facility] [address] [place] [id number] [address]- 4738 Jan, [facility] [address] [address]- 2448 Jan, [facility] [address] [address]- 6460 Jan, [facility] [address] [address]- 4326 Jan, Primary insomnia F51.01 ; Type 2 diabetes mellitus with other diabetic kidney complication E11.29 ; Chronic pain syndrome G89.4 and Essential hypertension I10 [facility] [address] [address]- 1092 Jan, Primary insomnia F51.01 [facility] [address] [address]- 6314 Jan, Type 2 diabetes mellitus with other diabetic kidney complication E11.29 [facility] [address] [address]- 5098 Jan, [facility] [address] [address]- 4768 Jan, Chronic obstructive pulmonary disease, unspecified COPD type J44.9 [facility] [address] [address]- 9745 Jan, Essential hypertension I10 ; Type 2 diabetes mellitus with other diabetic kidney complication E11.29 ; Chronic obstructive pulmonary disease, unspecified COPD type J44.9 ; Chronic kidney disease, stage 4 (severe) N18.4 ; Right carpal tunnel syndrome G56.01 ; 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 ; body builder (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 and Diabetic polyneuropathy associated with type 2 diabetes mellitus E11.42 [facility] [address] [place] [id number] [place] [address] 91508- 9452 Jan, Gastroesophageal reflux disease without esophagitis K21.9 [facility] [address] [place] [id number] [place] [address] 91015- 9710 Dec, [facility] [address] 58458- 8620 Dec, [facility] [address] [place] [id number] [place] [address] 71854- 6161 Dec, 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 ; Chronic pain syndrome G89.4 and Essential hypertension I10 [facility] [address] [place] [id number] [place] [address] 03679- 2117 Dec, [facility] [address] [place] [id number] [place] [address] 11977- 4639 Dec, Type 2 diabetes mellitus with other diabetic kidney complication E11.29 [facility] [address] [place] [id number] [address]- 7056 Dec, [facility] [address] [place] [id number] [place] [address] 78754- 6392 Dec, Gastroesophageal reflux disease without esophagitis K21.9 [facility] [address] [place] [id number] [place] [address] 36599- 5400 November, Type 2 diabetes mellitus with other diabetic kidney complication E11.29 [facility] [address] [place] [id number] [place] [address] 30582- 5561 November, [facility] [address] [place] [id number] [place] [address] 94568- 1259 November, Type 2 diabetes mellitus with other diabetic kidney complication E11.29 [facility] [address] [address]- 8967 November, [facility] [address] [place] [id number] [place] [address] 23315- 8866 November, Type 2 diabetes mellitus with other diabetic kidney complication E11.29 [facility] [address] [place] [id number] [place] [address] 45097- 6820 November, [facility] [address] [place] [id number] [place] [address] 51752- 5601 Oct, Essential hypertension I10 [place] [address] [place] [id number] [place] [address] 12478- 0696 Oct, Psoriasis of scalp L40.9 [facility] [address] [place] [id number] [place] [address] 16876- 4858 Oct, Essential hypertension I10 and Chronic pain syndrome G89.4 [facility] [address] [place] [id number] [place] [address] 59052- 2906 Oct, [facility] [address] [place] [id number] [place] [address] 68226- 5474 Sep, Type 2 diabetes mellitus with other diabetic kidney complication E11.29 [facility] [address] [place] [id number] [place] [address] 42223- 0654 Sep, [facility] [address] [place] [id number] [place] [address] 64694- 8994 Sep, Type 2 diabetes mellitus with other diabetic kidney complication E11.29 [facility] [address] [address]- 3910 Sep, Type 2 diabetes mellitus with other diabetic kidney complication E11.29 [facility] [address] [place] [id number] [place] [address] 53262- 0316 Sep, Type 2 diabetes mellitus with other diabetic kidney complication E11.29 ; Chronic kidney disease, stage 4 (severe) N18.4 ; Chronic obstructive pulmonary disease, unspecified COPD type J44.9 ; Iron deficiency anemia due to chronic blood loss D50.0 ; 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 ; Gastroesophageal reflux disease without esophagitis K21.9 ; Essential hypertension I10 ; Primary insomnia F51.01 ; Depression, unspecified depression type F32.9 ; Chronic pain syndrome G89.4 ; Wrist pain, right M25.531 ; Paresthesia of right upper extremity R20.2 and Psoriasis of scalp L40.9 [place] [id number] [place] [address] 40396- 3954 Sep, [place] [id number] [place] [address] 27337- 0409 Aug, Essential hypertension I10 [address] 88839- 1779 Aug, History of DVT (deep vein thrombosis) Z86.[address] 91241- 1339 Aug, [place] [id number] [place] [address] 07749- 5320 Jul, [address] 60997- 7432 Jul, [place] [id number] [place] [address] 01644- 6978 Jul, retirement current use of anticoagulant Z79.01 ; Chronic pain syndrome G89.4 and Chronic kidney disease, stage 4 (severe) N18.4 [place] [id number] [place] [address] 51947- 9075 Jul, [address] 43331- 9130 Jul, [place] [id number] [place] [address] 37572- 2294 Jul, [address] 01666- 4971 Jul, [place] [address] [address]- 9030 Jul, [place] [id number] [place] [address] 70335- 9674 Jul, Type 2 diabetes mellitus with other diabetic kidney complication E11.29 [place] [id number] [place] [address] 23740- 7367 Jul, History of DVT (deep vein thrombosis) Z86.718 [place] [address] [place] [id number] [place] [address] 47160- 3670 Jun, [address] 10498- 1153 Jun, History of DVT (deep vein thrombosis) Z86.718 [place] [id number] [place] [address] 97767- 1461 Jun, Post traumatic stress disorder (PTSD) F43.10 [place] [id number] [place] [address] 65424- 0908 07 Jun, 2016 Type 2 diabetes mellitus with other diabetic kidney complication E11.29 ; Diabetic polyneuropathy associated with type 2 diabetes mellitus E11.42 ; Iron deficiency anemia due to chronic blood loss D50.0 ; Chronic obstructive pulmonary disease, unspecified COPD type J44.9 ; 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 ; History [...] pain M79.641 and Right wrist pain M25.531 [address] [place] [address] 87862- 4450 May, [facility] [address] [facility] [id number] [place] [address]- 8482 May, [facility] [address] [facility] [id number] [place] [address]- 0986 May, [facility] [address] [facility] [id number] [place] [address]- 6996 May, [facility] [address] [facility] [id number] [place] [address], [place] [address] 254 May, Anemia in other chronic diseases classified elsewhere D63.8 [facility] [address] [facility] [id number] [place] [address], [place] [address]- 4306 May, [facility] [id number] [place] [address], [place] [address]- 6199 Apr, [facility] [id number] [place] [address], [place] [address]- 6905 27 Mar, 2016 Dermatofibroma D23.9 [facility] [id number] [place] [address]- 9896 20 Mar, 2016 [facility] [id number] [place] [address], [place] [address] 2543 14 Mar, 2016 Chronic pain syndrome G89.4 [facility] [id number] [place] [address] 2546 09 Mar, 2016 [facility] [id number] [place] [address] 2546 Mar, [facility] [id number] [place] [address] 2546 Mar, [facility] [id number] [place] [address] 2546 Feb, [facility] [address] [facility] [id number] [place] [address] 2546 Feb, [facility] [id number] [place] [address]- 4258 Feb, [place] [address] [address]- 7344 Feb, [place] [address] [place] [id number] [place] [address] 90153- 4303 Feb, [place] [id number] [place] [address] 01665- 4757 Feb, [place] [address] [place] [id number] [place] [address] 22748- 4614 Feb, Type 2 diabetes mellitus with other diabetic kidney complication E11.29 ; Diabetic polyneuropathy associated with type 2 diabetes mellitus E11.42 ; Iron deficiency anemia due to chronic blood loss D50.0 ; Chronic obstructive pulmonary disease, unspecified COPD type J44.9 ; 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 ; History of DVT (deep vein thrombosis) Z86.718 ; Chronic pain syndrome G89.4 ; Oxygen desaturation during sleep G47.34 ; Sleep apnea in adult G47.33 ; Gastroesophageal reflux disease without esophagitis K21.9 ; Essential hypertension I10 ; Primary insomnia F51.01 ; Depression, unspecified depression type F32.9 and Renal failure, chronic, stage 4 (severe) N18.4 [place] [id number] [place] [address] 60959- 6770 Feb, Skin tags, multiple acquired L91.8 [place] [address] [address]- 6776 Jan, [facility] [id number] [place] [address] [id number] Jan, Dental examination Z01.20 [place] [id number] [place] [address] 96324- 8744 Jan, [place] [address] [place] [id number] [place] [address] 00185- 5214 Jan, Type 2 diabetes mellitus with other diabetic kidney complication E11.29 ; Diabetic polyneuropathy associated with type 2 diabetes mellitus E11.42 ; Iron deficiency anemia due to chronic blood loss D50.0 ; Chronic obstructive pulmonary disease, unspecified COPD type J44.9 ; 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 ; History of DVT (deep vein thrombosis) Z86.718 ; Chronic pain syndrome G89.4 ; Oxygen desaturation during sleep G47.34 ; Sleep apnea in adult G47.33 ; Gastroesophageal reflux disease without esophagitis K21.9 ; Essential hypertension I10 ; Primary insomnia F51.01 ; Depression, unspecified depression type F32.9 ; Skin lesion L98.9 and Renal failure, chronic, stage 4 (severe) N18.4 [facility] [id number] [place] [address] 76758- 1021 Dec, Diabetes type 2, uncontrolled E11.65 [place] [address] 28033- 1228 Dec, [place] [address] 39262- 4188 Dec, Type 2 diabetes mellitus with other diabetic kidney complication E11.29 ; Diabetic polyneuropathy associated with type 2 diabetes mellitus E11.42 ; Iron deficiency anemia due to chronic blood loss D50.0 ; Chronic obstructive pulmonary disease, unspecified COPD type J44.9 ; 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 ; History of DVT (deep vein thrombosis) Z86.718 ; Chronic pain syndrome G89.4 ; Oxygen desaturation during sleep G47.34 ; Sleep apnea in adult G47.33 ; Gastroesophageal reflux disease without esophagitis K21.9 ; Essential hypertension I10 ; Primary insomnia F51.01 and Depression, unspecified depression type F32.9 [facility] [id number] [place] [address] [id number] Dec, Dental caries K02.9 [facility] [address] [facility] [id number] [place] [address] [id number] Dec, [facility] [id number] [place] [address] [id number] Dec, Dental examination Z01.20 [facility] [id number] [place] [address] [id number] November, Dental examination Z01.20 and Dental caries K02.9 [facility] [id number] [id number] Oct, [facility] [id number] [place] [address] [id number] Oct, [facility] [id number] [place] [address] [id number] Sep, [facility] [id number] [place] [address] [id number] Sep, [facility] [id number] [place] [address] [id number] Sep, [facility] [id number] [place] [address] [id number] Sep, Other chronic pain 338.29 [facility] [id number] [place] [address] [id number] Aug, Diabetes type 2, uncontrolled E11.65 and Morbid obesity due to excess calories E66.01 [facility] [id number] [place] [address] [id number] Aug, Hair loss L65.9 [facility] [id number] [place] [address] [id number] Aug, [facility] [id number] [place] [address] [id number] Jul, [facility] [address] [id number] [place] [address] [id number] Jul, [facility] [id number] [place] [address] [id number] Jun, [facility] [id number] [place] [address] [id number] Jun, Hair loss L65.9 and Disorder of the skin and subcutaneous tissue, unspecified L98.9 [facility] [id number] [place] [address] [id number] May, Type 2 diabetes mellitus with other diabetic kidney complication E11.29 ; Type 2 diabetes mellitus with hyperglycemia E11.65 ; Morbid obesity due to excess calories E66.01 and Essential hypertension I10 [facility] [id number] [place] [address] [id number] May, Diabetes type 2, uncontrolled E11.65 ; Encounter for immunization Z23 and Morbid obesity due to excess calories E66.01 [id number] [place] [address] [id number] May, [facility] [id number] [place] [address]32- 5234 Apr, [address] [id number] [place] [address] [id number] Apr, Hyperglycemia R73.[address] [id number] Apr, [address] [id number] Apr, Depression F32.9 ; Encounter for immunization Z23 ; Hyperglycemia R73.9 and Anemia in other chronic diseases classified elsewhere D63.8 [facility] [id number] [place] [address] [id number] Mar, [address] [id number] [place] [address] [id number] Feb, Positive occult stool blood test 792.[address] [id number] Feb, Depression 311 ; Other chronic pain 338.29 and Diabetes with renal manifestations, type II or unspecified type, not stated as uncontrolled 250.40 [facility] [id number] [address] Feb, Occult blood in stools 792.[id number] [place] [address] [id number] Feb, Anemia 285.9 ; Occult blood positive stool 792.1 ; Unspecified essential hypertension 401.9 and Other chronic pain 338.[id number] [place] [address] [id number] Feb, [id number] [place] [address] [id number] Feb, Anemia 285.9 [address] [id number] [place] [address] [id number] Feb, [facility] [place] [address] [id number] [id number] Feb, [facility] [place] [id number] [place] [address] [id number] Feb, Diabetes with renal manifestations, type II or unspecified type, not stated as uncontrolled 250.40 ; Other chronic pain 338.29 ; Unspecified essential hypertension 401.9 ; Anemia 285.9 and Depression 311 [facility] [place] [id number], [place] [id number] Jan, [facility] [place] [id number], [place] [id number] Jan, Anemia 285.9 and Follow up V67.9 [facility] [place] [id number], [place] [id number] Jan, [facility] [place] [id number] [place] [address] [id number] Jan, [facility] [place] [id number], [place] [id number] Jan, [facility] [place] [id number], [place] [id number] Dec, [facility] [id number] [place] [address] 339[address]- 4356 Oct, [facility] [id number] [place] [address] 44984- 8682 Oct, [facility] [id number] [place] [address] 85062 2546 Sep, [facility] [place] [address] [id number], [place] [id number] Sep, [facility] [id number] [place] [address] 41677- 4214 Sep, [facility] [place] [address] [id number], [place] [id number] Aug, [facility] [id number] [place] [address] 00084- 8087 Aug, [facility] [place] [facility] [address] [facility] [id number] [place] [address]- 8566 Aug, [facility] [place] [address] [facility] [id number] [place] [id number] Aug, 2014 [facility] [place] [facility] [address] [id number] [place] [address]- 5236 Aug, [facility] [place] [facility] [id number] [place] [address]- 7926 Aug, 2014 [facility] [place] [address] [facility] [id number] [place] [id number] Aug, [facility] [place] [facility] [id number] [place] [address]- 5646 Aug, [facility] [place] [address] [id number], [place] [id number] Jul, [facility] [place] [facility] [id number] [place] [address]- 2096 Jul, [facility] [place] [facility] [id number] [address]- 6631 Jul, [facility] [place] [address] [facility] [id number] [place] [id number] Jul, [facility] [place] [facility] [id number] [address]- 8861 Jul, [facility] [place] [id number], [place] [id number] Jul, [facility] [place] [facility] [id number] [address]- 5836 Jul, [facility] [place] [address] [facility] [id number] [place] [id number] Jun, [facility] [place] [address] [facility] [id number] [place] [id number] Jun, [facility] [place] [facility] [id number] [address]- 8487 Jun, [facility] [place] [facility] [id number] [address]- 5226 Jun, [facility] [place] [address] [id number] [place] [id number] Jun, [facility] [place] [facility] [address] [facility] [id number] [place] [address]- 0696 Jun, [facility] [place] [address] [id number], [place] [id number] May, [facility] [place] [facility] [address] [facility] [id number] [place] [address]- 9237 May, [facility] [place] [facility] [address] [facility] [id number] [place] [address]- 9214 May, [facility] [place] [address] [id number] [place] [id number] Apr, [facility] [place] [facility] [address] [id number] [address]- 0017 Apr, [facility] [place] [address] [id number], [place] [id number] Apr, [facility] [place] [address] [id number], [place] [id number] Apr, [facility] [place] [facility] [address] [facility] [id number] [place] [address]- 3490 Apr, [facility] [place] [facility] [address] [facility] [id number] [place] 29381125- 0490 Apr, [facility] [place] [address] [id number], [place] [id number] Mar, [facility] [place] [facility] [address] [facility] [id number] [place] [address]- [address]30 18 Mar, 2014 [facility] [place] [address] [id number], [place] [id number] Mar, [facility] [place] [facility] [address] [facility] [id number] [place] [address]- 0941 17 Mar, 2014 [facility] [place] [address] [facility] [id number], [place] [id number] 16 Mar, 2014 [facility] [place] [facility] [address] [facility] [id number] [place] [address]- 9196 Mar, [facility] [place] [address] [id number] [place] [id number] Mar, [facility] [place] [facility] [address] [id number] [place] [address]- 7266 Mar, [facility] [place] [address] [id number] [place] [id number] Mar, [facility] [place] [facility] [address] [id number] [place] [address]- 8397 Mar, [facility] [place] [address] [id number] [place] [id number] Feb, [facility] [place] [facility] [address] [facility] [id number] [place] [address]- 1946 Feb, [facility] [place] [address] [id number] [place] [id number] Jan, [facility] [place] [facility] [address] [facility] [id number] [place] [address]- 3182 Jan, [facility] [place] [address] [facility] [id number] [place] [id number] Jan, [facility] [place] [facility] [address] [facility] [id number] [place] [address]- 2688 Jan, [facility] [place] [address] [id number] [place] [id number] Jan, [facility] [place] [facility] [address] [facility] [id number] [place] [address]- 9942 Jan, [facility] [place] [facility] [address] [facility] [id number] [place] [address]- 2069 Dec, [facility] [place] [facility] [address] [facility] [id number] [place] [address]- 8534 Dec, [facility] [place] [address] [id number] [place] [id number] November, [facility] [place] [facility] [address] [facility] [id number] [place] [address]- 3389 November, [facility] [place] [address] [facility] [id number] [place] [id number] November, [facility] [address] [id number] [place] [address]- 1600 November, [facility] [place] [address] [facility] [id number] [place] [id number] Oct, [facility] [place] [facility] [address] [facility] [id number] [place] [address]- 4039 Oct, [facility] [place] [facility] [address] [facility] [id number] [place] [address]- 1442 Oct, [facility] [place] [facility] [address] [facility] [id number] [place] [address]- 5853 Oct, [facility] [place] [facility] [address] [id number] [place] [address]- 8549 Oct, [facility] [place] [facility] [address] [id number] [place] [address]- 4040 Oct, [facility] [place] [address] [facility] [id number], [place] [id number] Sep, [facility] [place] [address] [facility] [id number], [place] [id number] Sep, [facility] [place] [facility] [address] [id number] [address]- 5766 Sep, [facility] [place] [facility] [address] [facility] [id number] [place] [address]- 6123 Sep, [facility] [place] [address] [facility] [id number], [place] 845270805 Sep, [facility] [place] [facility] [address] [facility] [id number] [place] [address]- 1248 Sep, [facility] [place] [facility] [address] [facility] [id number] [place] [address]- 6016 Aug, [facility] [place] [facility] [address] [facility] [id number] [place] [address]- 8979 Aug, [facility] [place] [address] [facility] [id number], [place] [id number] Aug, [facility] [place] [address] [facility] [id number] [place] [id number] Aug, [facility] [place] [facility] [address] [facility] [id number] [place] [address]- 2546 Aug, [facility] [place] [address] [facility] [id number] [place] 060471431 Aug, [facility] [place] [facility] [address] [facility] [id number] [place] [address]- 2546 Aug, [facility] [place] [address] [facility] [id number] [place] [id number] Aug, [facility] [place] [facility] [address] [id number] [place] [address]- 1076 Aug, [facility] [place] [address] [facility] [id number] [place] [id number] Aug, [facility] [place] [facility] [id number] [address]- 1906 Aug, [facility] [place] [address] [facility] [id number], [place] 823935600 Aug, [facility] [place] [facility] [id number] [address]- 6416 Aug, [facility] [place] [facility] [address] [facility] [id number] [place] [address]- 7086 Jul, [facility] [place] [address] [facility] [id number], [place] 279434084 Jun, [facility] [place] [facility] [address] [facility] [id number] [place] [address]- 9276 Jun, [facility] [place] [facility] [address] [facility] [id number] [place] [address]- 8046 Jun, [facility] [place] [facility] [address] [facility] [id number] [place] [address]- 9066 Jun, [facility] [place] [address] [facility] [id number], [place] [id number] Jun, [facility] [place] [facility] [address] [id number] [place] [address]- 7212 Jun, [facility] [place] [facility] [address] [facility] [id number] [place] [address]- 4122 Jun, [facility] [place] [address] [facility] [id number], [place] [id number] Jun, [facility] [place] [facility] [address] [facility] [id number] [place] [address]- 9528 Jun, [facility] [place] [facility] [address] [facility] [id number] [place] [address]- 9227 May, [facility] [place] [address] [facility] [id number], [place] [id number] May, [facility] [place] [facility] [address] [facility] [id number] [place] [address]- 4977 May, [facility] [place] [facility] [address] [facility] [id number] [place] [address]- 0899 May, [facility] [place] [facility] [address] [facility] [id number] [place] [address]- 7544 May, [facility] [place] [facility] [address] [facility] [id number] [place] [address]- 4425 May, [facility] [place] [address] [id number], [place] 343957355 May, [facility] [place] [facility] [address] [facility] [id number] [place] [address]- 0822 May, [facility] [place] [address] [facility] [id number], [place] [id number] May, [facility] [place] [facility] [address] [facility] [id number] [place] [address]- 0599 May, [facility] [place] [address] [facility] [id number], [place] [id number] Apr, [facility] [place] [facility] [address] [facility] [id number] [place] [address]- 2044 Apr, [facility] [place] [facility] [address] [facility] [id number] [place] [address]- 3636 Apr, [facility] [place] [address] [facility] [id number], [place] [id number] Apr, [facility] [place] [facility] [address] [facility] [id number] [place] [address]- 7306 Apr, [facility] [address] [facility] [id number] [place] [address]- 3427 Apr, [facility] [place] [address] [facility] [id number], [place] 835901831 Apr, [facility] [place] [facility] [address] [facility] [id number] [place] [address]- 6005 Apr, [facility] [place] [facility] [address] [id number] [address]- 5541 Apr, [facility] [address] [id number] [address]- 4362 Apr, [facility] [place] [address] [id number], [place] 213198563 Apr, [facility] [place] [facility] [address] [facility] [id number] [place] [address]- 9677 Apr, [facility] [place] [address] [id number], [place] 502401938 Apr, [facility] [place] [facility] [address] [facility] [id number] [place] [address]- 7842 Apr, [facility] [place] [id number], [place] 509767304 Apr, [facility] [place] [facility] [address] [facility] [id number] [place] [address]- 5531 Apr, [facility] [place] [facility] [address] [facility] [id number] [place] [address]- 5291 Apr, [facility] [place] [facility] [address] [facility] [id number] [place] [address]- 3316 Apr, [facility] [place] [address] [facility] [id number], [place] 869901178 Apr, [facility] [place] [facility] [address] [facility] [id number] [place] [address]- [address] Mar, [facility] [address] [facility] [id number] [place] [address]- 0724 Mar, [facility] [place] [address] [id number] [place] 348564134 Mar, [facility] [place] [address] [id number] [place] 282012151 Mar, [facility] [place] [address] [id number] [place] [id number] Mar, [facility] [place] [address] [id number] [place] 756137463 Feb, [facility] [place] [address] [id number] [place] 784491981 Feb, [facility] [place] [address] [id number] [place] 159741139 Feb, [facility] [address] [facility] [id number] [place] [address]- 3638 Feb, [facility] [place] [address] [id number] [place] 397493654 Feb, [facility] [place] [address] [id number] [place] 941730649 Feb, [facility] [place] [address] [id number] [place] 686121114 Feb, [facility] [place] [address] [id number] [place] [id number] Feb, [facility] [place] [address] [id number] [place] 771152907 Feb, [facility] [place] [address] [id number] [place] 116049129 Jan, [facility] [place] [address] [id number] [place] 713189704 Jan, [facility] [place] [address] [id number] [place] [id number] Jan, [facility] [place] [address] [id number] [place] 516995691 Jan, [facility] [place] [address] [id number] [place] 384076900 Jan, [facility] [address] [facility] [id number] [place] [address]- 2134 Jan, [facility] [place] [address] [id number] [place] 818218010 Jan, [facility] [place] [address] [id number] [place] 366370294 Jan, [facility] [place] [address] [id number] [place] 222591517 Dec, [facility] [place] [address] [id number] [place] 251565802 November, [facility] [place] [address] [id number] [place] [id number] November, [facility] [place] [address] [id number] [place] [id number] November, [facility] [place] [address] [id number] [place] 313964422 November, [facility] [place] [address] [id number] [place] [id number] November, [facility] [place] [address] [id number] [place] 764791617 November, [facility] [place] [address] [id number] [place] 023186027 Jul, [facility] [place] [address] [id number] [place] 173999978 Jul, [facility] [place] [address] [id number] [place] [id number] Jul, [facility] [place] [address] [id number] [place] 482839709 Jun, [facility] [address] [facility] [id number] [place] [address]- 4918 Jun, [facility] [place] [address] [id number] [place] 388722241 May, [facility] [address] [facility] [id number] [place] [address]- 6433 May, [facility] [place] [address] [id number], [place] 809090361 May, [facility] [address] [facility] [id number] [place] [address]- 7610 May, [facility] [place] [address] [id number], [place] [id number] May, [facility] [address] [facility] [id number] [place] [address] May, [facility] [place] [address] [id number], [place] [id number] Apr, [facility] [address] [facility] [id number] [place] [address] Apr, [facility] [place] [facility] [address] [facility] [id number] [place] [address] Apr, [facility] [place] [address] [id number][place] [id number] Apr, [facility] [place] [address] [id number][place] [id number] Apr, [facility] [id number] [place] [address] Apr, [facility] [address] [facility] [id number] [place] [address] Apr, [facility] [place] [address] [id number][place] [id number] Apr, [facility] [place] [facility] [address] [facility] [id number] [place] [address] Apr, [facility] [address] [id number][place] [id number] Apr, [facility] [address] [id number], [place] [id number] Apr, [facility] [address] [id number], [place] [id number] Mar, [facility] [address] [id number], [place] [id number] Feb, [facility] [address] [id number] [place] [id number] Jan, [facility] [address] [id number] [place] [id number] Dec, [facility] [place] [address] [id number] [place] [id number] Dec, [facility] [place] [address] [id number] [place] [id number] Dec, [facility] [place] [address] [id number] [place] [id number] Dec, [facility] [place] [address] [id number] [place] [id number] Dec, [facility] [address] [id number] [place] [id number] November, [facility] [address] [id number] [place] [id number] November, [facility] [address] [id number] [place] [id number] November, [facility] [address] [facility] [id number] [place] [address] November, [facility] [address] [id number] [place] [id number] November, [facility] [address] [id number] [place] [id number] November, [facility] [address] [id number] [place] [id number] Oct, [facility] [address] [id number] [place] [id number] Oct, [facility] [address] [id number] [place] [id number] Oct, [facility] [address] [id number] [place] [id number] Oct, [facility] [address] [id number] [place] [id number] Oct, [facility] [address] [id number] [place] [id number] Oct, [facility] [address] [id number], [place] [id number] Sep, [facility] [address] [id number] [place] [id number] Aug, [facility] [address] [id number] [place] [id number] Aug, [facility] [place] [address] [facility] [id number] [place] [id number] Jul, [facility] [place] [facility] [address] [facility] [id number] [place] [address], [place] [address] Jun, [facility] [place] [facility] [address] [id number] [place] [address] Jun, [facility] [place] [facility] [id number] [place] [address], [place] [address] Jun, [facility] [place] [facility] [id number] [place] [address] Jun, [facility] [place] [facility] [address] [id number] [place] [address] May, [facility] [place] [facility] [address] [id number] [place] [address] May, [facility] [place] [facility] [id number] [place] [address] Apr, [facility] [place] [facility] [id number] [place] [address] Apr, [facility] [place] [facility] [address] [id number] [place] [address] Apr, [facility] [place] [facility] [address] [facility] [id number] [place] [address] Feb, [facility] [place] [facility] [address] [facility] [id number] [place] [address] Aug, [facility] [place] [facility] [address] [facility] [id number] [place] [address]- [address] Jul, [facility] [place] [facility] [id number] [place] [address] 30 Jun, 2010 [facility] [place] [facility] [address] [id number] [place] [address] May, [facility] [place] [facility] [address] [id number] [place] [address] May, [facility] [place] [facility] [address] [id number] [place] [address] May, [facility] [place] [facility] [address] [id number] [place] [address] 2546 May, [facility] [place] [facility] [address] [id number] [place] [address] 2546 May, [facility] [place] [facility] [address] [id number] [place] [address] Aug, [facility] [place] [facility] [address] [id number] [place] [address] Jun, [facility] [place] [facility] [address] [id number] [place] [address] Jun, [facility] [place] [facility] [address] [id number] [place] [address] Jun, [facility] [place] [facility] [address] [id number] [address] 24 May, 2009 [facility] [address] [id number] [place] [address] 28 Apr, 2009 [facility] [address] [id number] [place] [address] 27 Apr, 2009 [facility] [address] [id number] [place] [address] 15 Apr, 2009 [facility] [address] [id number] [place] [address] 20 Jan, 2009 [facility] [address] [id number] [place] [address] 13 Oct, 2008 [facility] [address] [facility] [id number] [place] [address] May, [facility] [address] [facility] [id number] [place] [address] May, IMMUNIZATIONS No Known Immunizations SOCIAL HISTORY [...] Dialysis [facility] Reveles 2012 -Dr. Simon now [facility] Medical History Colonoscopy (polyps 2 ) [...]
--- OUTSIDE RECORDS SUMMARY | 2017-12-22 19:51 | XMS REPORT ---
Author Author CHELSY VILLAFANA Organization [facility] Address [address] [place] [address] Care Team Providers Care Paraprofessional Education Assistant Name Role Phone CHELSY VILLAFANA Unavailable PROBLEMS Type Condition ICD9-CM Code UUK13-YU Code Onset Dates Condition Status SNOMED Code Problem Chronic pain syndrome G89.4 Active 119705236 Problem Type 2 diabetes mellitus with hyperglycemia E11.65 Active 792892458684181 Problem Primary insomnia F51.01 Active 0679311 Problem Bilateral lower extremity edema R60.0 Active 107187895 Problem Anemia in other chronic diseases classified elsewhere D63.8 Active 479452165 Problem Supplemental oxygen dependent Z99.81 Active 688833958407 Problem Right carpal tunnel syndrome G56.01 Active 855106963387663 Problem 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 Active 192863454506793 Problem Paresthesia of right upper extremity R20.2 Active 70122182 Problem Chronic kidney disease, stage 4 (severe) N18.4 Active 654629893 Problem terminal clerk 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 Active 306091369 Problem Psoriasis of scalp L40.9 Active 805370090 Problem Gastroesophageal reflux disease without esophagitis K21.9 Active 461157574 Problem Chronic obstructive pulmonary disease, unspecified COPD type J44.9 Active 95421784 Problem Type 2 diabetes mellitus with other diabetic kidney complication E11.29 Active 140956032 Problem Diabetic polyneuropathy associated with type 2 diabetes mellitus E11.42 Active 92363087 Problem History of DVT (deep vein thrombosis) Z86.718 Active 565846704 Problem FPC current use of anticoagulant Z79.01 Active 309673695 Problem Oxygen desaturation during sleep G47.34 Active 039548856 Problem Essential hypertension I10 Active 62896969 Problem Depression, unspecified depression type F32.9 Active 25901469 Problem Sleep apnea in adult G47.33 Active [id number] ALLERGIES No Information ENCOUNTERS Encounter Location Date Diagnosis [facility] [address] [id number] [id number] Oct, Bilateral lower extremity edema R60.0 [address] [address] [address], [place] [address] Oct, [place] [address], [place] [address] Sep, Type 2 diabetes mellitus with other diabetic kidney complication E11.29 and Chronic obstructive pulmonary disease, unspecified COPD type J44.9 [place] [address], [place] [address] 15 Aug, 2017 Type 2 diabetes mellitus with other diabetic kidney complication E11.29 [place] [address] [place] [address] 77332- 5000 12 Aug, 2017 Gastroesophageal reflux disease without esophagitis K21.9 ; FPC current use of anticoagulant Z79.01 ; Chronic pain syndrome G89.4 ; Essential hypertension I10 and Type 2 diabetes mellitus with other diabetic kidney complication E11.29 [place] [address], [place] [address] 08 Aug, 2017 Chronic pain syndrome G89.4 [place] [address], [place] [address] 7[address] Aug, Type 2 diabetes mellitus with other diabetic kidney complication E11.29 [place] [address], [place] [address] 3146 Jul, Diabetic polyneuropathy associated with type 2 diabetes mellitus E11.42 [place] [id number], [place] [address] 1149 Jul, Primary insomnia F51.01 [place] [address] [place] [address] 89636- 4005 Jul, [place] [address], [place] [address] 1646 Jul, Type 2 diabetes mellitus with other diabetic kidney complication E11.29 and Chronic obstructive pulmonary disease, unspecified COPD type J44.9 [place] [address], [place] [address] 6222 Jul, Type 2 diabetes mellitus with other diabetic kidney complication E11.29 [place] [address] [place] [address] 00357- 5335 Jun, Type 2 diabetes mellitus with other diabetic kidney complication E11.29 [place] [id number] [place] [address] 19414- 2162 Jun, [place] [id number] [place] [address] 58131- 1006 Jun, Chronic obstructive pulmonary disease, unspecified COPD type J44.9 [id number] [place] [address] 77916- 3408 May, Type 2 diabetes mellitus with other diabetic kidney complication E11.29 [id number] [place] [address] 91002- 1117 May, terminal clerk current use of anticoagulant Z79.01 and Essential hypertension I10 [id number] [place] [address] 94472- 4473 May, Anemia in other chronic diseases classified elsewhere D63.8 ; Chronic obstructive pulmonary disease, unspecified COPD type J44.9 ; Oxygen desaturation during sleep G47.34 ; Sleep apnea in adult G47.33 and Supplemental oxygen dependent Z99.81 [address] [place] [address] 62013- 6111 May, Type 2 diabetes mellitus with other diabetic kidney complication E11.29 ; Essential hypertension I10 ; Chronic pain syndrome G89.4 ; BMI 40.0-44.9, adult Z68.41 ; Gastroesophageal reflux disease without esophagitis K21.9 ; terminal clerk current use of anticoagulant Z79.01 ; terminal clerk 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 ; Diabetic polyneuropathy associated with type 2 diabetes mellitus E11.42 ; Edema of both legs R60.0 and Supplemental oxygen dependent Z99.81 [address] [place] [address] 69408- 6276 May, [facility] [id number] [place] [address] 99145- 3349 May, Essential hypertension I10 and Gastroesophageal reflux disease without esophagitis K21.9 [facility] [id number] [place] [address] 53829- 9593 May, [facility] [address] [address]- 3880 May, Type 2 diabetes mellitus with other diabetic kidney complication E11.29 and FPC current use of anticoagulant Z79.01 [place] [id number] [place] [address] 86414- 3442 Apr, Chronic pain syndrome G89.4 and Essential hypertension I10 [place] [address] 0[address]- 1272 Apr, Type 2 diabetes mellitus with other diabetic kidney complication E11.29 [facility] [id number] [place] [address] 16559- 2734 Apr, Type 2 diabetes mellitus with other diabetic kidney complication E11.29 [facility] [id number] [place] [address] 55443- 5421 Apr, Essential hypertension I10 [facility] [id number] [place] [address] 76513- 2001 Apr, Gastroesophageal reflux disease without esophagitis K21.9 [facility] [id number] [place] [address] 43176- 1887 Apr, Type 2 diabetes mellitus with other diabetic kidney complication E11.29 [facility] [id number] [place] [address] 93325- 4056 Apr, Type 2 diabetes mellitus with other diabetic kidney complication E11.29 and terminal clerk current use of anticoagulant Z79.01 [facility] [id number] [place] [address] 89437- 8696 Mar, Encounter for immunization Z23 and Preoperative examination Z01.818 [place] [address] [place] [address] 56318- 7800 Mar, [place] [id number] [place] [address] 76649- 2069 Mar, Type 2 diabetes mellitus with other diabetic kidney complication E11.29 [place] [id number] [place] [address] 43681- 8032 08 Mar, 2017 Type 2 diabetes mellitus with other diabetic kidney complication E11.29 [place] [id number] [place] [address] 77608- 8994 Mar, Gastroesophageal reflux disease without esophagitis K21.9 [place] [id number] [place] [address] 34680- 1895 Mar, Essential hypertension I10 [place] [id number] [place] [address] 42449- 6445 Feb, FPC current use of anticoagulant Z79.01 [place] [id number] [place] [address] 96727- 3673 Feb, Type 2 diabetes mellitus with other diabetic kidney complication E11.29 [place] [id number] [place] [address] 58700- 4708 Feb, Type 2 diabetes mellitus with other diabetic kidney complication E11.29 [place] [id number] [place] [address] 03518- 8510 Feb, Type 2 diabetes mellitus with other diabetic kidney complication E11.29 [place] [id number] [place] [address] 86098- 7769 Feb, Gastroesophageal reflux disease without esophagitis K21.9 [facility] [id number] [place] [address] 09543- 7556 Feb, Type 2 diabetes mellitus with other diabetic kidney complication E11.29 [place] [id number] [place] [address] 59943- 1119 Feb, terminal clerk current use of anticoagulant Z79.01 [place] [address] [address], [place] [address] 7189 Jan, 2017 Type 2 diabetes mellitus with other diabetic kidney complication E11.29 [facility] [address], [place] [address] 2546 Jan, Type 2 diabetes mellitus with other diabetic kidney complication E11.29 [facility] [address], [place] [address]- 4610 Jan, Chronic pain syndrome G89.4 [facility] [address], [place] [address] 2545 Jan, [facility] [address] [place] [address] 38365- 6306 Jan, [facility] [address] [place] [address] 30545- 3931 Jan, [facility] [id number], [place] [address]- 3675 Jan, [facility] [address], [place] [address]- 6385 Jan, Primary insomnia F51.01 ; Type 2 diabetes mellitus with other diabetic kidney complication E11.29 ; Chronic pain syndrome G89.4 and Essential hypertension I10 [facility] [address], [place] [address]- 6784 Jan, Primary insomnia F51.01 [facility] [address], [place] [address]- 3358 Jan, Type 2 diabetes mellitus with other diabetic kidney complication E11.29 [facility] [address], [place] [address]- 3969 Jan, [facility] [address] [address] 8034 Jan, Chronic obstructive pulmonary disease, unspecified COPD type J44.9 [facility] [address], [place] [address]- 5698 Jan, Essential hypertension I10 ; Type 2 diabetes mellitus with other diabetic kidney complication E11.29 ; Chronic obstructive pulmonary disease, unspecified COPD type J44.9 ; Chronic kidney disease, stage 4 (severe) N18.4 ; Right carpal tunnel syndrome G56.01 ; 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 ; FPC (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 and Diabetic polyneuropathy associated with type 2 diabetes mellitus E11.42 [facility] [id number] [place] [address] 51637- 2873 Jan, Gastroesophageal reflux disease without esophagitis K21.9 [facility] [id number] [place] [address] 47457- 9276 Dec, [facility] [id number] [place] [address] 49965- 0632 Dec, [facility] [id number] [place] [address] 02604- 4647 Dec, FPC current use of anticoagulant Z79.01 ; Chronic pain syndrome G89.4 and Essential hypertension I10 [facility] [id number] [place] [address] 03542- 3602 Dec, [facility] [id number] [place] [address] 00356- 0443 Dec, Type 2 diabetes mellitus with other diabetic kidney complication E11.29 [facility] [id number] [place] [address] 51593- 9330 Dec, [facility] [id number] [place] [address] 88148- 1605 Dec, Gastroesophageal reflux disease without esophagitis K21.9 [facility] [id number] [place] [address] 86608- 0025 November, Type 2 diabetes mellitus with other diabetic kidney complication E11.29 [facility] [id number] [place] [address] 62984- 3569 November, [facility] [address] [place] [address]- 5305 November, Type 2 diabetes mellitus with other diabetic kidney complication E11.29 [facility] [address], [place] [address]- 2176 November, [facility] [address], [place] [address]- 4538 November, Type 2 diabetes mellitus with other diabetic kidney complication E11.29 [facility] [id number], [place] [address]- 6541 November, [facility] [address] [place] [address] 69993- 6517 Oct, Essential hypertension I10 [facility] [id number] [place] [address] 71451- 8699 Oct, Psoriasis of scalp L40.9 [facility] [id number] [place] [address] 50433- 2222 Oct, Essential hypertension I10 and Chronic pain syndrome G89.4 [facility] [address], [place] [address]- 7162 Oct, [facility] [address], [place] [address]- 8540 Sep, Type 2 diabetes mellitus with other diabetic kidney complication E11.29 [facility] [address], [place] [address]- 8374 Sep, [facility] [address], [place] [address]- 5744 Sep, Type 2 diabetes mellitus with other diabetic kidney complication E11.29 [facility] [address], [place] [address]- 7930 Sep, Type 2 diabetes mellitus with other diabetic kidney complication E11.29 [facility] [address], [place] [address]- 6079 Sep, Type 2 diabetes mellitus with other diabetic kidney complication E11.29 ; Chronic kidney disease, stage 4 (severe) N18.4 ; Chronic obstructive pulmonary disease, unspecified COPD type J44.9 ; Iron deficiency anemia due to chronic blood loss D50.0 ; terminal clerk current use of anticoagulant Z79.01 ; Gastroesophageal reflux disease without esophagitis K21.9 ; Essential hypertension I10 ; Primary insomnia F51.01 ; Depression, unspecified depression type F32.9 ; Chronic pain syndrome G89.4 ; Wrist pain, right M25.531 ; Paresthesia of right upper extremity R20.2 and Psoriasis of scalp L40.9 [address] [address] 60115- 1589 Sep, [address] 73282- 9412 Aug, Essential hypertension I10 [address] 55819- 1175 Aug, History of DVT (deep vein thrombosis) Z86.718 [place] [address] 99207- 9285 Aug, [place] [address] 80445- 1619 Jul, [place] [address] 00647- 2582 Jul, [place] [id number] [place] [address] 79859- 0568 Jul, terminal clerk current use of anticoagulant Z79.01 ; Chronic pain syndrome G89.4 and Chronic kidney disease, stage 4 (severe) N18.4 [place] [address] 97680- 9775 Jul, [place] [address] 94945- 4628 Jul, [place] [address] 20003- 7485 Jul, [address] [id number] [address]- 7981 Jul, [address] [address] [place] [address] 08113- 4862 Jul, [address] [place] [address] 35749- 3581 Jul, Type 2 diabetes mellitus with other diabetic kidney complication E11.29 [address] [place] [address] 48537- 1339 16 Jul, 2016 History of DVT (deep vein thrombosis) Z86.718 [address] [place] [address] 82280- 8542 Jun, [address] [place] [address] 62762- 2969 Jun, History of DVT (deep vein thrombosis) Z86.718 [address] [place] [address] 84514- 7130 15 Jun, 2016 Post traumatic stress disorder (PTSD) F43.10 [address] [place] [address] 57986- 7713 07 Jun, 2016 Type 2 diabetes mellitus with other diabetic kidney complication E11.29 ; Diabetic polyneuropathy associated with type 2 diabetes mellitus E11.42 ; Iron deficiency anemia due to chronic blood loss D50.0 ; Chronic obstructive pulmonary disease, unspecified COPD type J44.9 ; terminal clerk current use of anticoagulant Z79.01 ; History [...] pain M79.641 and Right wrist pain M25.531 [address] [id number] [place] [address]- 7917 May, [facility] [address] [place] [address]- 5634 May, [facility] [id number] [place] [address]- 2433 May, [facility] [id number] [place] [address], [place] [address]- 2087 15 May, 2016 [facility] [id number] [place] [address]- 0746 May, Anemia in other chronic diseases classified elsewhere D63.8 [facility] [address] [place] [address], [place] [address]- 2185 May, [facility] [address] [place] [address]- 1254 Apr, [facility] [address] [place] [address] 92556- 5081 27 Mar, 2016 Dermatofibroma D23.9 [facility] [address] [place] [address], [place] [address]- 2897 20 Mar, 2016 [facility] [address] [place] [address]- 2038 14 Mar, 2016 Chronic pain syndrome G89.4 [facility] [address] [place] [address] 2545 09 Mar, 2015 [facility] [address], [place] [address]- 2544 07 Mar, 2015 [facility] [address] [place] [address]- 8931 06 Mar, 2016 [facility] [address] [place] [address]- 2545 Feb, [facility] [address], [place] [address]- 5432 Feb, [facility] [address], [place] [address]- 5622 Feb, [place] [address], [place] [address]- 1561 Feb, [facility] [address], [place] [address]- 9123 Feb, [place] [address] [place] [address] 30061- 2056 Feb, [place] [address], [place] [address]- 2719 Feb, Type 2 diabetes mellitus with other diabetic kidney complication E11.29 ; Diabetic polyneuropathy associated with type 2 diabetes mellitus E11.42 ; Iron deficiency anemia due to chronic blood loss D50.0 ; Chronic obstructive pulmonary disease, unspecified COPD type J44.9 ; terminal clerk current use of anticoagulant Z79.01 ; History of DVT (deep vein thrombosis) Z86.718 ; Chronic pain syndrome G89.4 ; Oxygen desaturation during sleep G47.34 ; Sleep apnea in adult G47.33 ; Gastroesophageal reflux disease without esophagitis K21.9 ; Essential hypertension I10 ; Primary insomnia F51.01 ; Depression, unspecified depression type F32.9 and Renal failure, chronic, stage 4 (severe) N18.4 [place] [address], [place] [address]- 7454 Feb, Skin tags, multiple acquired L91.8 [place] [address], [place] [address]- 0593 Jan, [facility] [address] [address] Jan, Dental examination Z01.20 [place] [address], [place] [address]- 1082 Jan, [place] [address], [place] [address]- 2120 Jan, Type 2 diabetes mellitus with other diabetic kidney complication E11.29 ; Diabetic polyneuropathy associated with type 2 diabetes mellitus E11.42 ; Iron deficiency anemia due to chronic blood loss D50.0 ; Chronic obstructive pulmonary disease, unspecified COPD type J44.9 ; terminal clerk current use of anticoagulant Z79.01 ; History of DVT (deep vein thrombosis) Z86.718 ; Chronic pain syndrome G89.4 ; Oxygen desaturation during sleep G47.34 ; Sleep apnea in adult G47.33 ; Gastroesophageal reflux disease without esophagitis K21.9 ; Essential hypertension I10 ; Primary insomnia F51.01 ; Depression, unspecified depression type F32.9 ; Skin lesion L98.9 and Renal failure, chronic, stage 4 (severe) N18.4 [facility] [id number] [place] [address] 21317- 5719 Dec, Diabetes type 2, uncontrolled E11.65 [place] [id number] [place] [address] 06628- 8578 Dec, [address] 67171- 2856 Dec, Type 2 diabetes mellitus with other [...] F51.01 and Depression, unspecified depression type F32.9 [facility] [address] [id number] [id number] Dec, Dental caries K02.9 [facility] [address] [id number] [address] Dec, [facility] [address] [place] [address] [id number] Dec, Dental examination Z01.20 [facility] [id number] [address] November, Dental examination Z01.20 and Dental caries K02.9 [facility] [address] [id number] [id number] Oct, [facility] [address] [id number] [id number] Oct, [facility] [address] [id number][place] [id number] Sep, [facility] [id number] [place] [address] [id number] Sep, [facility] [id number] [place] [id number] Sep, [facility] [id number] [place] [address] [id number] Sep, Other chronic pain 338.29 [facility] [id number] [place] [address] [id number] Aug, Diabetes type 2, uncontrolled E11.65 and Morbid obesity due to excess calories E66.01 [facility] [id number] [address] Aug, Hair loss L65.9 [facility] [id number] [place] [address] [id number] Aug, [facility] [address]O27527714ALMAR[place] [id number] Jul, [facility] [id number] [place] [address] [id number] Jul, [facility] [id number] [id number] Jun, [facility] [id number][place] [id number] Jun, Hair loss L65.9 and Disorder of the skin and subcutaneous tissue, unspecified L98.9 [facility] [id number], [place] [id number] May, Type 2 diabetes mellitus with other diabetic kidney complication E11.29 ; Type 2 diabetes mellitus with hyperglycemia E11.65 ; Morbid obesity due to excess calories E66.01 and Essential hypertension I10 [address] [place] [address] [id number] May, Diabetes type 2, uncontrolled E11.65 ; Encounter for immunization Z23 and Morbid obesity due to excess calories E66.01 [facility] [id number] [place] [address] [id number] 04 May, 2015 [facility] [address] [address] Apr, [place] [id number] [place] [address] [id number] Apr, Hyperglycemia R73.[address] [id number] Apr, [address] [id number] Apr, Depression F32.9 ; Encounter for immunization Z23 ; Hyperglycemia R73.9 and Anemia in other chronic diseases classified elsewhere D63.8 [facility] [id number] [place] [address] [id number] Mar, [place] [id number] [place] [address] [id number] Feb, Positive occult stool blood test 792.1 [place] [id number] [place] [address] [id number] Feb, Depression 311 ; Other chronic pain 338.29 and Diabetes with renal manifestations, type II or unspecified type, not stated as uncontrolled 250.40 [facility] [id number] [place] [address]- 1702 Feb, Occult blood in stools 792.1 [place] [id number] [place] [address] [id number] Feb, Anemia 285.9 ; Occult blood positive stool 792.1 ; Unspecified essential hypertension 401.9 and Other chronic pain 338.29 [id number] [place] [address] [id number] Feb, [place] [id number] [place] [address] [id number] Feb, Anemia 285.9 [facility] [place] [id number], [place] [id number] Feb, [facility] [place] [id number] [place] [address] [id number] Feb, [facility] [place] [id number], [place] [id number] Feb, Diabetes with renal manifestations, type II or unspecified type, not stated as uncontrolled 250.40 ; Other chronic pain 338.29 ; Unspecified essential hypertension 401.9 ; Anemia 285.9 and Depression 311 [facility] [place] [id number], [place] [id number] Jan, [facility] [place] [id number] [place] [address] [id number] Jan, Anemia 285.9 and Follow up V67.9 [facility] [place] [id number], [place] [id number] Jan, [facility] [place] [id number] [place] [address] [id number] Jan, [facility] [place] [id number], [place] [id number] Jan, [facility] [place] [id number] [place] [address] [id number] Dec, [facility] [id number] [place] [address] 47591- 2546 Oct, [facility] [id number] [place] [address] 48326- 1561 Oct, [facility] [id number] [place] [address] 07927 2546 Sep, [facility] [place] [id number], [place] [id number] Sep, [facility] [id number] [place] [address]- 4091 Sep, [facility] [id number], [place] [id number] Aug, [facility] [address] [id number], [place] [address]- 1756 Aug, 2014 [facility] [place] [facility] [address] [facility] [id number] [place] [address]- 7[address] Aug, [facility] [place] [address] [facility] [id number], [place] [id number] Aug, [facility] [place] [facility] [id number] [place] [address]- 2274 Aug, [facility] [place] [facility] [address] [facility] [id number], [place] [address]- 4926 Aug, [facility] [place] [address] [facility] [id number] [place] [id number] Aug, [facility] [place] [facility] [address] [id number] [place] [address]- 5830 Aug, [facility] [place] [id number], [place] [id number] Jul, [facility] [place] [facility] [address] [id number], [place] [address]- 8563 Jul, [facility] [place] [facility] [address]00565100[place], [place] [address]- 6973 Jul, [facility] [place] [address] [facility] [id number], [place] [id number] Jul, [facility] [place] [facility] [address]00565100[place], [place] [address]- 2214 Jul, [facility] [place] [address] [facility] [id number], [place] [id number] Jul, [facility] [place] [facility] [address] [facility] [id number], [place] [address]- 2645 Jul, [facility] [place] [address] [id number], [place] [id number] Jun, [facility] [place] [address] [facility] [id number], [place] [id number] Jun, [facility] [place] [facility] [address] [id number], [place] [address]- 7340 Jun, [facility] [place] [facility] [address] [facility] [id number], [place] [address]- 7792 Jun, [facility] [place] [address] [facility] [id number] [place] [id number] Jun, [facility] [place] [facility] [address] [facility] [id number] [address]- 8876 Jun, [facility] [place] [address] [facility] [id number], [place] [id number] May, [facility] [place] [facility] [address] [facility] [id number], [place] [address]- 7198 May, [facility] [place] [facility] [address] [facility] [id number], [place] [address]- 2373 May, [facility] [place] [address] [facility] [id number], [place] [id number] Apr, [facility] [place] [facility] [address] [facility] [id number], [place] [address]- 7759 Apr, [facility] [place] [address] [facility] [id number], [place] [id number] Apr, [facility] [place] [address] [facility] [id number], [place] 612834424 Apr, [facility] [place] [facility] [address] [facility] [id number], [place] [address]- 6404 Apr, [facility] [place] [facility] [address] [facility] [id number][place] [address]- 5571 Apr, [facility] [place] [address] [facility] [id number], [place] [id number] Mar, [facility] [place] [facility] [address] [facility] [id number], [place] [address]- 7621 Mar, [facility] [place] [address] [facility] [id number], [place] [id number] Mar, [facility] [place] [facility] [address] [facility] [id number], [place] [address]- 9674 17 Mar, 2014 [facility] [place] [address] [facility] [id number], [place] [id number] Mar, [facility] [place] [facility] [address] [id number] [place] [address]- 0904 Mar, [facility] [place] [address] [id number] [place] [id number] Mar, [facility] [place] [facility] [address] [facility] [id number] [place] [address]- 8826 Mar, [facility] [place] [address] [id number] [place] [id number] Mar, [facility] [place] [facility] [address] [id number] [place] [address]- 9039 Mar, [facility] [place] [address] [id number] [place] [id number] Feb, [facility] [place] [facility] [address] [facility] [id number] [place] [address]- 4956 Feb, [facility] [place] [address] [facility] [id number] [place] [id number] Jan, [facility] [place] [facility] [address] [facility] [id number], [place] [address]- 8893 Jan, [facility] [place] [address] [facility] [id number], [place] [id number] Jan, [facility] [place] [facility] [address] [facility] [id number], [place] [address]- 4835 Jan, [facility] [place] [address] [id number] [place] [id number] Jan, [facility] [place] [facility] [address] [facility] [id number], [place] [address]- 1627 Jan, [facility] [place] [facility] [address] [facility] [id number], [place] [address]- 6511 Dec, [facility] [place] [facility] [address] [facility] [id number], [place] [address]- 8280 Dec, [facility] [place] [address] [facility] [id number] [place] [id number] November, [facility] [place] [facility] [address] [facility] [id number], [place] [address]- 0507 November, [facility] [place] [address] [facility] [id number] [place] [id number] November, [facility] [place] [facility] [address] [id number] [place] [address]- 3442 November, [facility] [place] [address] [facility] [id number] [place] [id number] Oct, [facility] [place] [facility] [address] [facility] [id number] [place] [address]- 8728 Oct, [facility] [place] [facility] [address] [facility] [id number] [place] [address]- 4913 Oct, [facility] [place] [facility] [address] [facility] [id number] [place] [address]- 3799 Oct, [facility] [place] [facility] [address] [id number] [place] [address]- 6863 Oct, [facility] [place] [facility] [address] [id number] [place] [address]- 5685 Oct, [facility] [place] [address] [facility] [id number] [place] [id number] Sep, [facility] [place] [address] [facility] [id number] [place] [id number] Sep, [facility] [place] [facility] [address] [facility] [id number] [place] [address]- 5041 Sep, [facility] [place] [facility] [address] [facility] [id number], [place] [address]- 2425 Sep, [facility] [place] [address] [facility] [id number], [place] [id number] Sep, [facility] [place] [facility] [address] [facility] [id number] [place] [address]- 5467 Sep, [facility] [place] [facility] [address] [facility] [id number] [place] 17661582- 2848 Aug, [facility] [place] [facility] [address] [id number] [place] [address]- 1900 Aug, [facility] [place] [address] [id number] [place] [id number] Aug, [facility] [place] [address] [facility] [id number] [place] [id number] Aug, [facility] [place] [facility] [address] [facility] [id number], [place] [address]- 2546 Aug, [facility] [place] [address] [facility] [id number] [place] [id number] Aug, [facility] [place] [facility] [address] [facility] [id number], [place] [address]- 6886 Aug, [facility] [place] [address] [facility] [id number] [place] [id number] Aug, [facility] [place] [facility] [address]00565100[place], [place] [address]- 1376 Aug, [facility] [place] [id number] [place] [id number] Aug, [facility] [place] [facility] [address]00565100[place], [place] [address]- 6031 Aug, [facility] [place] [address] [facility] [id number] [place] [id number] Aug, [facility] [place] [facility] [address]00565100[place], [place] [address]- 7666 Aug, [facility] [place] [facility] [address] [id number], [place] [address]- 5292 Jul, [facility] [place] [address] [facility] [id number], [place] 104740036 Jun, [facility] [place] [facility] [address] [facility] [id number], [place] [address]- 0696 Jun, [facility] [place] [facility] [address] [facility] [id number], [place] [address]- 2206 Jun, [facility] [place] [facility] [address] [id number], [place] [address]- 4494 Jun, [facility] [place] [address] [facility] [id number], [place] [id number] Jun, [facility] [address] [facility] [id number], [place] [address]- 3716 Jun, [facility] [place] [facility] [address] [facility] [id number], [place] [address] 2546 Jun, [facility] [place] [address] [facility] [id number], [place] 232192390 Jun, [facility] [place] [facility] [address] [facility] [id number], [place] [address]- 3996 Jun, [facility] [place] [facility] [address] [facility] [id number], [place] [address]- 4974 May, [facility] [place] [address] [facility] [id number], [place] [id number] May, [facility] [place] [facility] [address]00565100[place], [place] [address]- 7536 May, [facility] [place] [facility] [address] [id number], [place] [address]- 3345 May, [facility] [place] [facility] [address] [id number], [place] [address]- 7923 May, [facility] [place] [facility] [address] [id number], [place] [address]- 1616 May, [facility] [place] [address] [facility] [id number], [place] [id number] May, [facility] [place] [facility] [address] [facility] [id number], [place] [address]- 5316 May, [facility] [place] [address] [facility] [id number], [place] 279232760 May, [facility] [place] [facility] [address] [facility] [id number], [place] [address]- 2546 May, [facility] [place] [address] [facility] [id number], [place] 240200934 Apr, [facility] [place] [facility] [address] [id number], [place] [address]- 7845 Apr, [facility] [address] [id number], [place] [address]- 8102 Apr, [facility] [place] 120 [facility] [id number], [place] 470398599 Apr, [facility] [place] [facility] [address] [id number], [place] [address]- 2519 Apr, [facility] [place] [facility] [address] [id number], [place] [address]- 8249 Apr, [facility] [place] [address] [facility] [id number], [place] [id number] Apr, [facility] [place] [facility] [address] [id number], [place] [address]- 1771 Apr, [facility] [place] [facility] [address] [facility] [id number], [place] 327780- 7262 Apr, [facility] [place] [facility] [address] [facility] [id number], [place] 644018- 9885 Apr, [facility] [place] [address] [facility] [id number], [place] 895919717 Apr, [facility] [place] [facility] [address] [id number], [place] [address]- 7299 Apr, [facility] [place] [address] [facility] [id number], [place] 809211304 Apr, [facility] [place] [facility] [address] [facility] [id number], [place] [address]- 8552 Apr, [facility] [place] 120 [facility] [id number], [place] 777765032 Apr, [facility] [place] [facility] [address] [facility] [id number], [place] [address]- 2635 Apr, [facility] [place] [facility] [address] [facility] [id number], [place] [address]- 5665 Apr, [facility] [place] [facility] [address] [id number], [place] [address]- 0434 Apr, [facility] [place] [address] [id number] [place] [id number] Apr, [facility] [address] [facility] [id number], [place] [address]- 5295 Mar, [facility] [address] [facility] [id number], [place] [address]- 5203 Mar, [facility] [place] [address] [id number] [place] [id number] Mar, [facility] [place] [address] [id number] [place] [id number] Mar, [facility] [place] [address] [id number] [place] [id number] Mar, [facility] [place] [address] [id number] [place] [id number] Feb, [facility] [place] [address] [id number] [place] [id number] Feb, [facility] [place] [address] [id number] [place] [id number] Feb, [facility] [address] [facility] [id number], [place] [address]- 2467 Feb, [facility] [place] [address] [id number] [place] [id number] Feb, [facility] [place] [address] [id number] [place] [id number] Feb, [facility] [place] [address] [id number] [place] [id number] Feb, [facility] [place] [address] [id number] [place] [id number] Feb, [facility] [place] [address] [id number] [place] 505851621 Feb, [facility] [place] [address] [id number] [place] [id number] Jan, [facility] [place] [address] [id number] [place] [id number] Jan, [facility] [place] [address] [id number] [place] [id number] Jan, [facility] [place] [address] [id number] [place] [id number] Jan, [facility] [place] [address] [id number] [place] [id number] Jan, [facility] [address] [facility] [id number], [place] [address]- 5636 Jan, [facility] [place] [address] [id number] [place] 565834911 Jan, [facility] [place] [address] [id number] [place] [id number] Jan, [facility] [place] [address] [id number] [place] 608939092 Dec, [facility] [place] [address] [id number] [place] [id number] November, [facility] [place] [address] [id number] [place] [id number] November, [facility] [place] [address] [id number] [place] [id number] November, [facility] [place] [address] [id number] [place] [id number] November, [facility] [place] [address] [id number] [place] [id number] November, [facility] [place] [address] [id number] [place] [id number] November, [facility] [place] [address] [id number] [place] [id number] Jul, [facility] [place] [address] [id number] [place] [id number] Jul, [facility] [place] [address] [id number] [place] [id number] Jul, [facility] [place] [address] [id number] [place] [id number] Jun, [facility] [address]00565100[place], [place] [address]- 1486 Jun, [facility] [place] [address] [id number], [place] 919337310 May, [facility] [address]00565100[place], [place] [address]- 6306 May, [facility] [place] [address] [id number], [place] 025354010 May, [facility] [place] [facility] [address] [facility] [id number], [place] [address]- 8618 May, [facility] [place] [address] [id number], [place] [id number] May, [facility] [place] [facility] [address] [facility] [id number], [place] [address]- 7205 May, [facility] [place] [address] [id number], [place] 476018418 Apr, [facility] [place] [facility] [address] [facility] [id number] [place] [address] 72251- 3498 Apr, [facility] [place] [facility] [address] [id number], [place] [address]- 0801 Apr, [facility] [place] [address] [id number], [place] [id number] Apr, [facility] [place] [address] [id number], [place] [id number] Apr, [facility] [place] [facility] [address] [facility] [id number], [place] [address]- 1645 Apr, [facility] [place] [facility] [address] [facility] [id number], [place] [address]- 4295 Apr, [facility] [place] [address] [id number], [place] [id number] Apr, [facility] [place] [facility] [address] [facility] [id number], [place] [address]- 4295 Apr, [facility] [place] [address] [id number], [place] 404750390 Apr, [facility] [place] [address] [id number], [place] 836160927 Apr, [facility] [address] [id number], [place] 786738155 Mar, [facility] [place] [address] [id number] [place] [id number] Feb, [facility] [place] [address] [id number] [place] 914532057 Jan, [facility] [place] [address] [id number] [place] [id number] Dec, [facility] [place] [address] [id number] [place] 924469694 Dec, [facility] [place] [address] [id number] [place] [id number] Dec, [facility] [place] [address] [id number] [place] 865943272 Dec, [facility] [place] [address] [id number] [place] [id number] Dec, [facility] [place] [address] [id number] [place] [id number] November, [facility] [place] [address] [id number] [place] [id number] November, [facility] [place] [address] [id number] [place] [id number] November, [facility] [address] [facility] [id number], [place] [address]- 7826 November, [facility] [place] [address] [id number] [place] [id number] November, [facility] [place] [address] [id number] [place] [id number] November, [facility] [place] [address] [id number] [place] [id number] Oct, [facility] [place] [address] [id number] [place] [id number] Oct, [facility] [place] [address] [id number] [place] [id number] Oct, [facility] [place] [address] [id number] [place] [id number] Oct, [facility] [place] [address] [id number] [place] [id number] Oct, [facility] [place] [address] [id number] [place] [id number] Oct, [facility] [place] [address] [facility] [id number] [place] [id number] Sep, [facility] [address] [id number] [place] [id number] Aug, [facility] [address] [id number] [place] [id number] Aug, [facility] [place] [address] [facility] [id number] [place] [id number] Jul, [facility] [place] [facility] [address] [facility] [id number] [place] [address] Jun, [facility] [place] [facility] [address] [facility] [id number] [place] [address], [place] [address] Jun, [facility] [place] [facility] [address] [facility] [id number] [place] [address] Jun, [facility] [place] [facility] [id number] [place] [address], [place] [address] Jun, [facility] [place] [facility] [address] [id number] [address] May, [facility] [place] [facility] [id number] [place] [address] May, [facility] [place] [facility] [address] [id number] [address] Apr, [facility] [place] [facility] [id number] [address] Apr, [facility] [place] [facility] [address] [facility] [id number], [place] [address] Apr, [facility] [place] [facility] [address] [facility] [id number], [place] [address] Feb, [facility] [place] [facility] [address] [facility] [id number], [place] [address] Aug, [facility] [place] [facility] [id number], [place] [address] Jul, [facility] [place] [facility] [address] [id number] [place] [address] 30 Jun, 2010 [facility] [place] [facility] [address] [id number] [place] [address] May, [facility] [place] [facility] [address] [id number] [place] [address] May, [facility] [place] [facility] [address] [id number] [place] [address] May, [facility] [place] [facility] [address] [id number] [place] [address] May, [facility] [place] [facility] [address] [id number] [place] [address] May, [facility] [place] [facility] [address] [facility] [id number] [place] [address] Aug, [facility] [place] [facility] [address] [id number], [place] [address] Jun, [facility] [place] [facility] [address] [facility] [id number], [place] [address] Jun, [facility] [place] [facility] [address] [facility] [facility] [id number], [place] [address] Jun, [facility] [place] [facility] [address] [facility] [facility] [id number], [place] [address] May, [facility] [place] [facility] [address] [id number], [place] [address] 28 Apr, 2009 [facility] [place] [facility] [address] [id number], [place] [address] Apr, [facility] [place] [facility] [address] [id number], [place] [address] 15 Apr, 2009 [facility] [place] [facility] [address] [facility] [id number], [place] [address] Jan, [facility] [place] [facility] [address] [id number], [place] [address] Oct, [facility] [address] [facility] [id number] [place] [address] May, [facility] [address] [facility] [id number] [place] [address] May, IMMUNIZATIONS No Known Immunizations SOCIAL HISTORY [...] Dialysis [facility] 2012 -Dr. Simon now [facility] Medical History Colonoscopy (polyps 2 ) [...]
--- OUTSIDE RECORDS SUMMARY | 2017-12-22 19:52 | XMS REPORT ---
Author Author CHELSY VILLAFANA Organization [facility] Address [address] [place] [address] Care Team Providers Care Internet Marketing Specialist Name Role Phone CHELSY VILLAFANA Unavailable PROBLEMS Type Condition ICD9-CM Code ZIS26-FM Code Onset Dates Condition Status SNOMED Code Problem Chronic pain syndrome G89.4 Active 510420140 Problem Type 2 diabetes mellitus with hyperglycemia E11.65 Active 271257110733116 Problem Primary insomnia F51.01 Active 3067372 Problem Bilateral lower extremity edema R60.0 Active 008024157 Problem Anemia in other chronic diseases classified elsewhere D63.8 Active 412784918 Problem Supplemental oxygen dependent Z99.81 Active 623451195555 Problem Right carpal tunnel syndrome G56.01 Active 879244414338916 Problem 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 Active 425052141771534 Problem Paresthesia of right upper extremity R20.2 Active 71714083 Problem Chronic kidney disease, stage 4 (severe) N18.4 Active 738979784 Problem medical terminologist 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 Active 263887559 Problem Psoriasis of scalp L40.9 Active 832643476 Problem Gastroesophageal reflux disease without esophagitis K21.9 Active 529820519 Problem Chronic obstructive pulmonary disease, unspecified COPD type J44.9 Active 99189517 Problem Type 2 diabetes mellitus with other diabetic kidney complication E11.29 Active 183740387 Problem Diabetic polyneuropathy associated with type 2 diabetes mellitus E11.42 Active 84335488 Problem History of DVT (deep vein thrombosis) Z86.718 Active 437975856 Problem custodial current use of anticoagulant Z79.01 Active 134306661 Problem Oxygen desaturation during sleep G47.34 Active 594400516 Problem Essential hypertension I10 Active 75433879 Problem Depression, unspecified depression type F32.9 Active 36676489 Problem Sleep apnea in adult G47.33 Active 52134960 ALLERGIES No Information ENCOUNTERS Encounter Location Date Diagnosis [facility] [address], [place] [address] November, [facility] [id number] [place] [address] 88521- 9472 Oct, Type 2 diabetes mellitus with other diabetic kidney complication E11.29 [place] [address] [place] [address] 41750- 9539 Oct, Primary insomnia F51.01 [place] [id number] [place] [id number] Oct, Bilateral lower extremity edema R60.0 [place] [id number] [place] [address] 82791- 2675 Oct, [place] [id number] [place] [address] 81591- 7708 Sep, Type 2 diabetes mellitus with other diabetic kidney complication E11.29 and Chronic obstructive pulmonary disease, unspecified COPD type J44.9 [place] [address] [place] [address] 85106- 2666 Aug, Type 2 diabetes mellitus with other diabetic kidney complication E11.29 [place] [id number] [place] [address] 94786- 1955 Aug, Gastroesophageal reflux disease without esophagitis K21.9 ; custodial current use of anticoagulant Z79.01 ; Chronic pain syndrome G89.4 ; Essential hypertension I10 and Type 2 diabetes mellitus with other diabetic kidney complication E11.29 [place] [address], [place] [address] 08 Aug, 2017 Chronic pain syndrome G89.4 [place] [id number] [place] [address] 72000- 3288 Aug, Type 2 diabetes mellitus with other diabetic kidney complication E11.29 [place] [address] [place] [address] 10846- 8993 Jul, Diabetic polyneuropathy associated with type 2 diabetes mellitus E11.42 [place] [id number] [address] 6605 Jul, Primary insomnia F51.01 [place] [id number] [place] [address] 32392- 8602 Jul, [facility] [id number] [place] [address] 74969- 0304 Jul, Type 2 diabetes mellitus with other diabetic kidney complication E11.29 and Chronic obstructive pulmonary disease, unspecified COPD type J44.9 [facility] [id number] [place] [address] 34555- 2989 Jul, Type 2 diabetes mellitus with other diabetic kidney complication E11.29 [place] [id number] [place] [address] 34721- 7572 Jun, Type 2 diabetes mellitus with other diabetic kidney complication E11.29 [place] [id number] [place] [address] 04803- 4908 Jun, [place] [id number] [place] [address] 20784- 3587 Jun, Chronic obstructive pulmonary disease, unspecified COPD type J44.9 [place] [id number] [place] [address] 79253- 0865 May, Type 2 diabetes mellitus with other diabetic kidney complication E11.29 [place] [address] [place] [address] 93790- 3909 May, custodial current use of anticoagulant Z79.01 and Essential hypertension I10 [place] [id number] [place] [address] 85632- 2923 May, Anemia in other chronic diseases classified elsewhere D63.8 ; Chronic obstructive pulmonary disease, unspecified COPD type J44.9 ; Oxygen desaturation during sleep G47.34 ; Sleep apnea in adult G47.33 and Supplemental oxygen dependent Z99.81 [place] [address], [place] [address] 3265 May, Type 2 diabetes mellitus with other diabetic kidney complication E11.29 ; Essential hypertension I10 ; Chronic pain syndrome G89.4 ; BMI 40.0-44.9, adult Z68.41 ; Gastroesophageal reflux disease without esophagitis K21.9 ; medical terminologist current use of anticoagulant Z79.01 ; medical terminologist 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 ; Diabetic polyneuropathy associated with type 2 diabetes mellitus E11.42 ; Edema of both legs R60.0 and Supplemental oxygen dependent Z99.81 [place] [id number] [place] [address] 14229- 5487 May, [place] [id number] [place] [address] 72041- 8116 May, Essential hypertension I10 and Gastroesophageal reflux disease without esophagitis K21.9 [place] [id number] [place] [address] 79411- 0856 May, [place] [address] 52818- 3625 May, Type 2 diabetes mellitus with other diabetic kidney complication E11.29 and custodial current use of anticoagulant Z79.01 [place] [id number] [place] [address] 65089- 1624 Apr, Chronic pain syndrome G89.4 and Essential hypertension I10 [place] [address] [place] [address] 98991- 8119 Apr, Type 2 diabetes mellitus with other diabetic kidney complication E11.29 [place] [id number] [place] [address] 55458- 0480 Apr, Type 2 diabetes mellitus with other diabetic kidney complication E11.29 [place] [id number] [place] [address] 43094- 7110 Apr, Essential hypertension I10 [place] [id number] [place] [address] 13160- 2424 Apr, Gastroesophageal reflux disease without esophagitis K21.9 [place] [address] [place] [address] 28081- 3227 Apr, Type 2 diabetes mellitus with other diabetic kidney complication E11.29 [facility] [id number] [place] [address] 32529- 7387 Apr, Type 2 diabetes mellitus with other diabetic kidney complication E11.29 and medical terminologist current use of anticoagulant Z79.01 [facility] [id number] [place] [address] 61274- 1721 Mar, Encounter for immunization Z23 and Preoperative examination Z01.818 [facility] [address] 41415- 5173 Mar, [place] [address] 21169- 1656 Mar, Type 2 diabetes mellitus with other diabetic kidney complication E11.29 [place] [address] 75908- 8122 Mar, Type 2 diabetes mellitus with other diabetic kidney complication E11.29 [place] [id number] [place] [address] 82057- 3309 Mar, Gastroesophageal reflux disease without esophagitis K21.9 [facility] [address] 56537- 1383 Mar, Essential hypertension I10 [place] [id number] [place] [address] 24101- 0834 Feb, medical terminologist current use of anticoagulant Z79.01 [facility] [id number] [place] [address] 51392- 1580 Feb, Type 2 diabetes mellitus with other diabetic kidney complication E11.29 [facility] [id number] [place] [address] 63056- 2323 Feb, Type 2 diabetes mellitus with other diabetic kidney complication E11.29 [facility] [id number] [place] [address] 65100- 8521 Feb, Type 2 diabetes mellitus with other diabetic kidney complication E11.29 [facility] [id number] [place] [address] 97823- 3836 Feb, Gastroesophageal reflux disease without esophagitis K21.9 [facility] [id number] [place] [address] 23146- 3857 Feb, Type 2 diabetes mellitus with other diabetic kidney complication E11.29 [facility] [address] [place] [address] 77860- 0231 Feb, medical terminologist current use of anticoagulant Z79.01 [facility] [id number] [place] [address] 02418- 9925 Jan, Type 2 diabetes mellitus with other diabetic kidney complication E11.29 [facility] [id number] [place] [address] 51466- 7852 Jan, Type 2 diabetes mellitus with other diabetic kidney complication E11.29 [facility] [id number] [place] [address] 78300- 6645 Jan, Chronic pain syndrome G89.4 [facility] [id number] [place] [address] 76323- 2687 Jan, [facility] [id number] [place] [address] 86514- 6177 Jan, [facility] [address] [place] [address] 08461- 6583 Jan, [facility] [address] [place] [address] 85201- 2430 Jan, [facility] [id number] [place] [address] 75530- 3884 Jan, Primary insomnia F51.01 ; Type 2 diabetes mellitus with other diabetic kidney complication E11.29 ; Chronic pain syndrome G89.4 and Essential hypertension I10 [facility] [address] [place] [address] 01877- 3426 Jan, Primary insomnia F51.01 [facility] [address] [place] [address] 73947- 0232 Jan, Type 2 diabetes mellitus with other diabetic kidney complication E11.29 [facility] [address], [place] [address]- 7419 Jan, [facility] [id number] [place] [address] 21389- 0813 Jan, Chronic obstructive pulmonary disease, unspecified COPD type J44.9 [facility] [address] [place] [address] 74101- 1967 Jan, Essential hypertension I10 ; Type 2 diabetes mellitus with other diabetic kidney complication E11.29 ; Chronic obstructive pulmonary disease, unspecified COPD type J44.9 ; Chronic kidney disease, stage 4 (severe) N18.4 ; Right carpal tunnel syndrome G56.01 ; 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 ; custodial (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 and Diabetic polyneuropathy associated with type 2 diabetes mellitus E11.42 [place] [id number] [place] [address] 53386- 7276 Jan, Gastroesophageal reflux disease without esophagitis K21.9 [facility] [id number] [place] [address] 23262- 1093 Dec, [place] [id number] [place] [address] 32020- 1117 Dec, [facility] [id number] [place] [address] 78815- 1197 Dec, medical terminologist current use of anticoagulant Z79.01 ; Chronic pain syndrome G89.4 and Essential hypertension I10 [facility] [address] [place] [address] 22731- 0764 Dec, [facility] [id number] [place] [address] 34704- 6221 Dec, Type 2 diabetes mellitus with other diabetic kidney complication E11.29 [facility] [id number] [place] [address] 25718- 0214 Dec, [facility] [id number] [place] [address] 13012- 4161 Dec, Gastroesophageal reflux disease without esophagitis K21.9 [facility] [address] [place] [address] 01006- 4892 November, Type 2 diabetes mellitus with other diabetic kidney complication E11.29 [facility] [id number] [place] [address] 71787- 4400 November, [facility] [address] [place] [address] 06240- 6456 November, Type 2 diabetes mellitus with other diabetic kidney complication E11.29 [facility] [address] [place] [address] 63934- 0583 November, [facility] [address] [place] [address] 85347- 7169 November, Type 2 diabetes mellitus with other diabetic kidney complication E11.29 [facility] [id number] [place] [address] 89076- 9584 November, [facility] [id number] [place] [address] 37067- 9585 Oct, Essential hypertension I10 [facility] [id number] [place] [address] 59222- 2164 Oct, Psoriasis of scalp L40.9 [facility] [id number] [place] [address] 97000- 6903 Oct, Essential hypertension I10 and Chronic pain syndrome G89.4 [facility] [id number] [place] [address] 87251- 5391 Oct, [facility] [id number] [place] [address] 23812- 5785 Sep, Type 2 diabetes mellitus with other diabetic kidney complication E11.29 [facility] [id number] [place] [address] 62232- 3303 Sep, [facility] [id number] [place] [address] 81343- 5871 Sep, Type 2 diabetes mellitus with other diabetic kidney complication E11.29 [place] [address] [place] [address] 10301- 9745 Sep, Type 2 diabetes mellitus with other diabetic kidney complication E11.29 [place] [address] [place] [address] 92218- 4531 09 Sep, 2016 Type 2 diabetes mellitus with other diabetic kidney complication E11.29 ; Chronic kidney disease, stage 4 (severe) N18.4 ; Chronic obstructive pulmonary disease, unspecified COPD type J44.9 ; Iron deficiency anemia due to chronic blood loss D50.0 ; medical terminologist current use of anticoagulant Z79.01 ; Gastroesophageal reflux disease without esophagitis K21.9 ; Essential hypertension I10 ; Primary insomnia F51.01 ; Depression, unspecified depression type F32.9 ; Chronic pain syndrome G89.4 ; Wrist pain, right M25.531 ; Paresthesia of right upper extremity R20.2 and Psoriasis of scalp L40.9 [place] [address] [place] [address] 55446- 3106 Sep, [place] [address] [place] [address] 51204- 2168 Aug, Essential hypertension I10 [place] [address] [place] [address] 01258- 4932 Aug, History of DVT (deep vein thrombosis) Z86.718 [place] [address] [place] [address] 10472- 3196 Aug, [place] [address] [place] [address] 78716- 7973 Jul, [place] [address] [place] [address] 73010- 4842 Jul, [place] [address] [place] [address] 00405- 0569 Jul, medical terminologist current use of anticoagulant Z79.01 ; Chronic pain syndrome G89.4 and Chronic kidney disease, stage 4 (severe) N18.4 [place] [address], [place] [address]- 0854 Jul, [place] [address], [place] [address]- 1293 Jul, [place] [address], [place] [address]- 4245 Jul, [place] [address] [place] [address] 71896- 3852 Jul, [place] [address], [place] [address]- 2672 Jul, [place] [address] [place] [address] 58400- 6635 Jul, Type 2 diabetes mellitus with other diabetic kidney complication E11.29 [place] [address], [place] [address]- 9162 Jul, History of DVT (deep vein thrombosis) Z86.718 [place] [address], [place] [address]- 6539 Jun, [place] [address] [place] [address] 85721- 1165 Jun, History of DVT (deep vein thrombosis) Z86.718 [place] [address], [place] [address]- 2894 15 Jun, 2016 Post traumatic stress disorder (PTSD) F43.10 [place] [address], [place] [address]- 7097 07 Jun, 2016 Type 2 diabetes mellitus with other diabetic kidney complication E11.29 ; Diabetic polyneuropathy associated with type 2 diabetes mellitus E11.42 ; Iron deficiency anemia due to chronic blood loss D50.0 ; Chronic obstructive pulmonary disease, unspecified COPD type J44.9 ; medical terminologist current use of anticoagulant Z79.01 ; History [...] pain M79.641 and Right wrist pain M25.531 [facility] [address] 43735- 9927 28 May, 2016 [facility] [address] 44748- 1353 23 May, 2016 [place] [id number] [place] [address] 42906- 5279 21 May, 2016 [place] [address] 27929- 1888 15 May, 2016 [place] [address] 32406- 0364 11 May, 2016 Anemia in other chronic diseases classified elsewhere D63.8 [place] [address] 03329- 1017 02 May, 2016 [facility] [id number] [place] [address] 67491- 0690 10 Apr, 2016 [facility] [address] [place] [address] 39777- 4149 27 Mar, 2016 Dermatofibroma D23.9 [facility] [id number] [place] [address] 48911- 6212 20 Mar, 2016 [facility] [address] 89749- 3066 14 Mar, 2016 Chronic pain syndrome G89.4 [facility] [address] [place] [address] 72809- 7449 09 Mar, 2016 [facility] [address] 37809- 3172 Mar, [facility] [address], [place] [address]- 1355 Mar, [facility] [address] [place] [address] 27576- 9124 Feb, [facility] [address] [address]- 0111 Feb, [facility] [id number] [place] [address] 05767- 3401 Feb, [facility] [address] [place] [address] 84223- 9522 Feb, [facility] [id number] [place] [address] 64704- 5473 Feb, [facility] [address] [place] [address] 09842- 7493 Feb, [facility] [id number] [place] [address] 88128- 2014 Feb, Type 2 diabetes mellitus with other [...] Renal failure, chronic, stage 4 (severe) N18.4 [facility] [address] [place] [address] 66360- 8246 Feb, Skin tags, multiple acquired L91.8 [facility] [address], [place] [address]- 1603 Jan, [place] [address] [facility] [id number] [id number] Jan, Dental examination Z01.20 [place] [address] [address]- 0985 Jan, [place] [address] [place] [id number] [address]- 5385 Jan, Type 2 diabetes mellitus with other [...] Renal failure, chronic, stage 4 (severe) N18.4 [place] [address], [place] [address]- 4607 Dec, Diabetes type 2, uncontrolled E11.65 [place] [address], [place] [address]- 6904 Dec, [address], [place] [address]- 0345 Dec, Type 2 diabetes mellitus with other diabetic kidney complication E11.29 ; Diabetic polyneuropathy associated with type 2 diabetes mellitus E11.42 ; Iron deficiency anemia due to chronic blood loss D50.0 ; Chronic obstructive pulmonary disease, unspecified COPD type J44.9 ; medical terminologist current use of anticoagulant Z79.01 ; History of DVT (deep vein thrombosis) Z86.718 ; Chronic pain syndrome G89.4 ; Oxygen desaturation during sleep G47.34 ; Sleep apnea in adult G47.33 ; Gastroesophageal reflux disease without esophagitis K21.9 ; Essential hypertension I10 ; Primary insomnia F51.01 and Depression, unspecified depression type F32.9 [facility] [address] [id number] [id number] Dec, Dental caries K02.9 [facility] [id number] [place] [address] [id number] Dec, [facility] [address] [id number] [id number] Dec, Dental examination Z01.20 [facility] [address] [id number] [place] [address] [id number] November, Dental examination Z01.20 and Dental caries K02.9 [facility] [address] [id number] [place] [address] [id number] Oct, [facility] [id number] [place] [address] [id number] Oct, [facility] [id number] [place] [address] [id number] Sep, [facility] [id number] [place] [address] [id number] Sep, [facility] [id number] [place] [address] [id number] Sep, [facility] [id number] [place] [address] [id number] Sep, Other chronic pain 338.29 [facility] [address] [id number] [place] [address] [id number] Aug, Diabetes type 2, uncontrolled E11.65 and Morbid obesity due to excess calories E66.01 [facility] [address] [id number] [place] [address] [id number] Aug, Hair loss L65.9 [facility] [address] [id number] [place] [address] [id number] Aug, [facility] [address] [id number] [place] [address] [id number] Jul, [facility] [address] [id number] [place] [address] [id number] Jul, [facility] [address] [id number] [place] [address] [id number] Jun, [place] [id number] [place] [address] [id number] Jun, Hair loss L65.9 and Disorder of the skin and subcutaneous tissue, unspecified L98.9 [place] [id number] [place] [address] [id number] May, Type 2 diabetes mellitus with other diabetic kidney complication E11.29 ; Type 2 diabetes mellitus with hyperglycemia E11.65 ; Morbid obesity due to excess calories E66.01 and Essential hypertension I10 [place] [id number] [place] [address] [id number] May, Diabetes type 2, uncontrolled E11.65 ; Encounter for immunization Z23 and Morbid obesity due to excess calories E66.01 [place] [id number] [place] [address] [id number] May, [facility] [address] [address] Apr, [place] [id number] [place] [address] [id number] Apr, Hyperglycemia R73.9 [place] [id number] [place] [address] [id number] Apr, [place] [id number] [place] [address] [id number] Apr, Depression F32.9 ; Encounter for immunization Z23 ; Hyperglycemia R73.9 and Anemia in other chronic diseases classified elsewhere D63.8 [facility] [address] [id number] Mar, [id number] [place] [address] [id number] Feb, Positive occult stool blood test 792.[address] [id number] Feb, Depression 311 ; Other chronic pain 338.29 and Diabetes with renal manifestations, type II or unspecified type, not stated as uncontrolled 250.40 [facility] [id number] [place] [address] 23786- 2904 Feb, Occult blood in stools 792.1 [facility] [id number] [place] [id number] Feb, Anemia 285.9 ; Occult blood positive stool 792.1 ; Unspecified essential hypertension 401.9 and Other chronic pain 338.29 [facility] [id number] [place] [address] [id number] Feb, [facility] [id number] [place] [address] [id number] Feb, Anemia 285.9 [facility] [id number] [place] [address] [id number] Feb, [facility] [id number] [place] [address] [id number] Feb, [facility] [id number] [place] [address] [id number] Feb, Diabetes with renal manifestations, type II or unspecified type, not stated as uncontrolled 250.40 ; Other chronic pain 338.29 ; Unspecified essential hypertension 401.9 ; Anemia 285.9 and Depression 311 [facility] [id number] [place] [address] [id number] Jan, [facility] [id number] [place] [address] [id number] Jan, Anemia 285.9 and Follow up V67.9 [facility] [id number] [place] [address] [id number] Jan, [facility] [id number] [place] [address] [id number] Jan, [facility] [id number] [place] [address] [id number] Jan, [facility] [id number] [place] [address] [id number] Dec, [facility] [id number] [place] [address] [id number]- 5230 Oct, [facility] [id number] [place] [address] 09641- 8349 Oct, [facility] [id number] [place] [address] 78969- 9306 Sep, [facility] [place] [address] [facility] [id number] [place] [id number] Sep, [facility] [place] [facility] [address] [facility] [id number], [place] [address]- 2036 Sep, [facility] [place] [address] [facility] [id number] [place] [id number] Aug, [facility] [place] [facility] [address] [facility] [id number], [place] [address]- 0056 Aug, [facility] [place] [facility] [address] [facility] [id number], [place] [address]- 8602 Aug, [facility] [place] [address] [facility] [id number] [place] [id number] Aug, [facility] [place] [facility] [address]00565100[place], [place] [address]- 1007 Aug, [facility] [place] [facility] [address] [id number], [place] [address]- 6394 Aug, [facility] [place] [address] [facility] [id number] [place] [id number] Aug, [facility] [place] [facility] [address] [id number], [place] [address]- 9156 Aug, [facility] [place] [address] [facility] [id number] [place] [id number] Jul, [facility] [place] [facility] [address]00565100[place], [place] [address]- 0156 Jul, [facility] [place] [facility] [address] [facility] [id number], [place] [address]- 7285 Jul, [facility] [place] [address] [facility] [id number] [place] [id number] Jul, [facility] [place] [facility] [address] [facility] [id number], [place] [address]- 3176 Jul, [facility] [place] [address] [facility] [id number] [place] [id number] Jul, [facility] [place] [facility] [address] [facility] [id number], [place] [address]- 2546 Jul, [facility] [place] [address] [id number] [place] [id number] Jun, [facility] [place] [address] [facility] [id number] [place] [id number] Jun, [facility] [place] [facility] [address] [facility] [id number], [place] [address]- 1586 Jun, [facility] [place] [facility] [address] [facility] [id number], [place] [address]- 4732 Jun, [facility] [place] [address] [facility] [id number] [place] [id number] Jun, [facility] [place] [facility] [address] [facility] [id number], [place] [address]- 8756 Jun, [facility] [place] [address] [id number] [place] [id number] May, [facility] [place] [facility] [address] [facility] [id number], [place] [address]- 2642 May, [facility] [place] [facility] [address] [facility] [id number], [place] [address]- 0757 May, [facility] [place] [address] [facility] [id number] [place] [id number] Apr, [facility] [place] [facility] [address] [facility] [id number], [place] [address]- 7226 Apr, [facility] [place] [address] [facility] [id number] [place] [id number] Apr, [facility] [place] [address] [facility] [id number] [place] [id number] Apr, [facility] [place] [facility] [address] [facility] [id number], [place] [address]- 6796 Apr, [facility] [place] [facility] [address] [facility] [id number], [place] [address]- 6796 Apr, [facility] [place] [address] [facility] [id number] [place] [id number] Mar, [facility] [place] [facility] [address] [id number] [place] [address]- 4397 18 Mar, 2014 [facility] [place] [address] [id number] [place] [id number] Mar, [facility] [place] [facility] [address] [facility] [id number] [place]- 8188 Mar, [facility] [place] [address] [id number] [place] [id number] Mar, [facility] [place] [facility] [address] [facility] [id number] [place] [address]- 8045 Mar, [facility] [place] [address] [id number] [place] [id number] Mar, [facility] [place] [facility] [address] [facility] [id number] [place] [address]- 2975 Mar, [facility] [place] [address] [facility] [id number] [place] [id number] Mar, [facility] [place] [facility] [address] [facility] [id number], [place] [address]- 5311 Mar, [facility] [place] [address] [facility] [id number] [place] [id number] Feb, [facility] [place] [facility] [address] [facility] [id number], [place] [address]- 8980 Feb, [facility] [place] [address] [id number] [place] [id number] Jan, [facility] [place] [facility] [address] [facility] [id number], [place] [address]- 1709 Jan, [facility] [place] [address] [id number] [place] [id number] Jan, [facility] [place] [facility] [address] [facility] [id number] [place] [address]- 1548 Jan, [facility] [place] [address] [id number] [place] 760772351 Jan, [facility] [place] [facility] [address] [facility] [id number], [place] 41938081- 2059 Jan, [facility] [place] [facility] [address] [id number] [place] [address]- 2546 Dec, [facility] [place] [facility] [address] [id number] [place] [address]- 2546 Dec, [facility] [place] [address] [id number] [place] [id number] November, [facility] [place] [facility] [address] [id number] [place] [address]- 2546 November, [facility] [place] [address] [id number] [place] [id number] November, [facility] [place] [facility] [address] [id number] [place] [address]- 2546 November, [facility] [place] [address] [id number] [place] [id number] Oct, [facility] [place] [facility] [address] [id number] [place] [address]- 3846 Oct, [facility] [place] [facility] [address] [id number] [place] [address]- 1726 Oct, [facility] [place] [facility] [address] [id number] [place] [address]- 6166 Oct, [facility] [place] [facility] [address] [id number] [place] [address]- 2546 Oct, [facility] [place] [facility] [address] [id number] [place] [address]- 2546 Oct, [facility] [place] [address] [id number] [place] [id number] Sep, [facility] [place] [address] [id number] [place] 890965356 Sep, [facility] [place] [facility] [address] [id number] [place] [address]- 2546 Sep, [facility] [place] [facility] [address] [id number] [place] [address]- 2546 Sep, [facility] [place] [address] [id number] [place] [id number] Sep, [facility] [place] [facility] [id number], [place] [address]- 8522 Sep, [facility] [place] [facility] [address] [id number], [place] [address]- 4312 Aug, [facility] [place] [facility] [address]00565100[place], [place] [address]- 2580 Aug, [facility] [place] [address] [facility] [id number] [place] [id number] Aug, [facility] [place] [address] [id number] [place] [id number] Aug, [facility] [place] [facility] [address]00565100[place], [place] [address]- 4227 Aug, [facility] [place] [id number] [place] 690737144 Aug, [facility] [place] [facility] [address]00565100[place], [place] [address]- 7908 Aug, [facility] [place] [address] [id number] [place] 679193932 Aug, [facility] [place] [facility] [address]00565100[place], [place] [address]- 4876 Aug, [facility] [place] [address] [id number] [place] [id number] Aug, [facility] [place] [facility] [address] [id number], [place] [address]- 8134 Aug, [facility] [place] [address] [facility] [id number] [place] [id number] Aug, [facility] [place] [facility] [address]00565100[place], [place] [address]- 6419 Aug, [facility] [place] [facility] [address] [id number], [place] [address]- 9552 Jul, [facility] [place] [address] [id number] [place] [id number] Jun, [facility] [place] [facility] [address] [id number] [place] [address]- 2026 Jun, [facility] [place] [facility] [address] [id number] [place] [address]- 3156 Jun, [facility] [place] [facility] [address] [facility] [id number] [place] [address]- 5796 Jun, [facility] [place] [address] [facility] [id number] [place] [id number] Jun, [facility] [place] [facility] [address] [id number] [place] [address]- 4416 Jun, [facility] [place] [facility] [address] [facility] [id number] [place] [address]- 2546 Jun, [facility] [place] [address] [facility] [id number] [place] [id number] Jun, [facility] [place] [facility] [address] [facility] [id number], [place] [address]- 7186 Jun, [facility] [place] [facility] [address] [facility] [id number] [place] [address]- 2016 May, [facility] [place] [address] [facility] [id number] [place] [id number] May, [facility] [place] [facility] [address] [facility] [id number], [place] [address]- 9486 May, [facility] [place] [facility] [address] [facility] [id number], [place] [address]- 3546 May, [facility] [place] [facility] [address] [id number], [place] [address]- 4436 May, [facility] [place] [facility] [address] [facility] [id number], [place] [address]- 5886 May, [facility] [place] [address] [facility] [id number] [place] 623428906 May, [facility] [place] [facility] [address] [facility] [id number], [place] [address]- 9016 May, [facility] [place] [address] [facility] [id number] [place] [id number] May, [facility] [place] [facility] [address] [facility] [id number], [place] [address]- 3126 May, [facility] [place] [address] [facility] [id number] [place] [id number] Apr, [facility] [place] [facility] [address] [facility] [id number], [place] [address]- 0063 Apr, [facility] [place] [facility] [address] [facility] [id number], [place] [address]- 6189 Apr, [facility] [place] [address] [facility] [id number] [place] [id number] Apr, [facility] [place] [facility] [address] [facility] [id number], [place] [address]- 9058 Apr, [facility] [place] [facility] [address] [facility] [id number], [place] [address]- 6332 Apr, [facility] [place] [address] [facility] [id number] [place] 077798298 Apr, [facility] [place] [facility] [address] [facility] [id number], [place] 701575- 2609 Apr, [facility] [place] [facility] [address] [facility] [id number], [place] [address]- 1732 Apr, [facility] [place] [facility] [address] [facility] [id number], [place] [address]- 8353 Apr, [facility] [place] [address] [facility] [id number] [place] 019265492 Apr, [facility] [place] [facility] [address] [facility] [id number], [place] [address]- 6486 Apr, [facility] [place] [address] [facility] [id number] [place] 121362269 Apr, [facility] [place] [facility] [address] [facility] [id number], [place] [address]- 7896 Apr, [facility] [place] [address] [facility] [id number] [place] 256219209 Apr, [facility] [address] [facility] [id number] [place] [address]- 6826 Apr, [facility] [place] [facility] [address] [facility] [id number], [place] [address]- 2495 Apr, [facility] [address] [facility] [id number], [place] [address]- 4848 Apr, [facility] [place] [address] [id number] [place] 100575612 Apr, [facility] [place] [facility] [address] [facility] [id number] [place] 74253587- 6804 Mar, [facility] [address] [facility] [id number], [place] 482266- 9812 Mar, [facility] [place] [address] [id number] [place] [id number] Mar, [facility] [place] [address] [id number] [place] 347178857 Mar, [facility] [place] [address] [id number] [place] 433660207 Mar, [facility] [place] [address] [id number] [place] 438299239 Feb, [facility] [place] [address] [id number] [place] 000014600 Feb, [facility] [place] [address] [id number] [place] 965674320 Feb, [facility] [place] [facility] [address] [facility] [id number], [place] [address] 2546 Feb, [facility] [place] [address] [id number] [place] 457888618 Feb, [facility] [place] [address] [id number] [place] [id number] Feb, [facility] [place] [address] [id number] [place] 181080636 Feb, [facility] [place] [address] [id number] [place] 877904627 Feb, [facility] [place] [address] [id number] [place] 823941418 Feb, [facility] [address] [id number] [place] 880756547 Jan, [facility] [place] [address] [id number] [place] 702723978 Jan, [facility] [place] [address] [id number] [place] 809137006 Jan, [facility] [place] [address] [id number] [place] 284545653 Jan, [facility] [place] [address] [id number] [place] [id number] Jan, [facility] [address] [facility] [id number] [place] [address]- 3156 Jan, [facility] [place] [address] [id number] [place] [id number] Jan, [facility] [place] [address] [id number] [place] 757897075 Jan, [facility] [place] [address] [id number] [place] 768186480 Dec, [facility] [place] [address] [id number] [place] 095376853 November, [facility] [place] [address] [id number] [place] 452374716 November, [facility] [place] [address] [id number] [place] [id number] November, [facility] [place] [address] [id number] [place] 138265472 November, [facility] [place] [address] [id number] [place] [id number] November, [facility] [place] [address] [id number] [place] [id number] November, [facility] [place] [address] [id number] [place] [id number] Jul, [facility] [place] [address] [id number] [place] [id number] Jul, [facility] [place] [address] [id number] [place] 287337392 Jul, [facility] [place] [address] [id number] [place] [id number] Jun, [facility] [place] [facility] [address] [facility] [id number], [place] [address]- 3132 Jun, [facility] [place] [address] [facility] [id number] [place] [id number] May, [facility] [place] [facility] [address] [facility] [id number], [place] [address]- 3695 May, [facility] [place] [address] [facility] [id number] [place] 603095898 May, [facility] [place] [facility] [address] [facility] [id number], [place] [address]- 9208 May, [facility] [place] [address] [facility] [id number] [place] [id number] May, [facility] [place] [facility] [address]00565100[place], [place] [address]- 4406 May, [facility] [place] [address] [facility] [id number] [place] 311724115 Apr, [facility] [place] [facility] [address]00565100[place], [place] [address]- 9268 Apr, [facility] [place] [facility] [address] [facility] [id number], [place] [address]- 8688 18 Apr, 2012 [facility] [place] [address] [id number] [place] 516015964 Apr, [facility] [place] [address] [facility] [id number] [place] [id number] Apr, [facility] [place] [facility] [address] [facility] [id number] Apr, [facility] [place] [facility] [address] [facility] [id number], [place] [address] Apr, [facility] [place] [address] [facility] [id number] [place] [id number] Apr, [facility] [place] [facility] [address] [facility] [id number], [place] [address] Apr, [facility] [place] [address] [id number] [place] [id number] Apr, [facility] [place] [address] [id number] [place] [id number] Apr, [facility] [place] [address] [id number] [place] [id number] Mar, [facility] [place] [address] [id number] [place] [id number] Feb, [facility] [place] [address] [id number] [place] [id number] Jan, [facility] [place] [address] [id number] [place] [id number] Dec, [facility] [place] [address] [id number] [place] [id number] Dec, [facility] [place] [address] [id number] [place] [id number] Dec, [facility] [place] [address] [id number] [place] [id number] Dec, [facility] [place] [address] [id number] [place] [id number] Dec, [facility] [place] [address] [id number] [place] [id number] November, [facility] [place] [address] [id number] [place] [id number] November, [facility] [place] [address] [id number] [place] [id number] November, [facility] [address] [facility] [id number], [place] [address] November, [facility] [place] [address] [id number] [place] [id number] November, [facility] [place] [address] [id number] [place] [id number] November, [facility] [place] [address] [id number] [place] [id number] Oct, [facility] [place] [address] [id number] [place] [id number] Oct, [facility] [place] [address] [id number] [place] [id number] Oct, [facility] [place] [address] [id number] [place] [id number] Oct, [facility] [place] [address] [id number] [place] [id number] Oct, [facility] [place] [address] [id number] [place] [id number] Oct, [facility] [place] [address] [id number] [place] [id number] Sep, [facility] [place] [address] [id number] [place] [id number] Aug, [facility] [place] [address] [id number] [place] [id number] Aug, [facility] [place] [address] [id number] [place] [id number] Jul, [facility] [place] [facility] [address] [id number], [place] [address] Jun, [facility] [place] [facility] [id number] [place] [address]- [address]42 Jun, [facility] [place] [facility] [id number] [place] [address]- [address]184 Jun, [facility] [place] [facility] [id number], [place] [address] Jun, [facility] [place] [facility] [id number], [place] [address] May, [facility] [place] [facility] [address] [id number], [place] [address] May, [facility] [place] [facility] [id number] [place] [address]77 Apr, [facility] [place] [facility] [id number], [place] [address] Apr, [facility] [place] [facility] [id number] [address] 10 Apr, 2011 [facility] [address] [id number] [place] [address] Feb, [facility] [place] [facility] [address] [id number] [place] [address] 15 Aug, 2010 [facility] [place] [facility] [address] [id number] [place] [address] Jul, [facility] [place] [facility] [address] [id number] [place] [address]45 30 Jun, 2010 [facility] [place] [facility] [address] [id number] [place] [address] May, [facility] [place] [facility] [address] [id number] [place] [address] 1742 May, [facility] [place] [facility] [address] [id number] [place] [address] May, [facility] [place] [facility] [address] [id number] [place] [address] May, [facility] [place] [facility] [address] [id number] [place] [address] May, [facility] [place] [facility] [address] [facility] [id number] [place] [address] 16 Aug, 2009 [facility] [place] [facility] [address] [id number] [place] [address] Jun, [facility] [place] [facility] [address] [id number] [place] [address]- 2542 Jun, [facility] [place] [facility] [address] [id number] [place] [address]- 8089 Jun, [facility] [place] [facility] [address] [id number] [place] [address]- [address]41 24 May, 2009 [facility] [place] [facility] [address] [id number] [place] [address] Apr, [facility] [address] [facility] [id number] [id number] [address] Apr, [facility] [address] [id number], [place] [address] Apr, [facility] [address] [id number], [place] [address] Jan, [facility] [id number], [place] [address] Oct, [facility] [address] [id number], [place] [address] May, [facility] [id number], [place] [address] May, IMMUNIZATIONS No Known Immunizations SOCIAL HISTORY [...] Dialysis [facility] 2012 -Dr. Simon now [facility] Medical History Colonoscopy (polyps 2 ) [...]
--- OUTSIDE RECORDS SUMMARY | 2017-12-22 19:53 | XMS REPORT ---
Author Author CHELSY VILLAFANA Organization 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 Name Role Phone CHELSY VILLAFANA Unavailable PROBLEMS Type Condition ICD9-CM Code UXH94-GO Code Onset Dates Condition Status SNOMED Code Problem Chronic pain syndrome G89.4 Active 360805120 Problem Type 2 diabetes mellitus with hyperglycemia E11.65 Active 356947754688624 Problem Primary insomnia F51.01 Active 8903336 Problem Bilateral lower extremity edema R60.0 Active 913690212 Problem Anemia in other chronic diseases classified elsewhere D63.8 Active 710216693 Problem Supplemental oxygen dependent Z99.81 Active 030094844993 Problem Right carpal tunnel syndrome G56.01 Active 894030542107586 Problem 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 Active 899369036564815 Problem Paresthesia of right upper extremity R20.2 Active 26962810 Problem Chronic kidney disease, stage 4 (severe) N18.4 Active 414106323 Problem 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 Active 637425901 Problem Psoriasis of scalp L40.9 Active 006968238 Problem Gastroesophageal reflux disease without esophagitis K21.9 Active 840969428 Problem Chronic obstructive pulmonary disease, unspecified COPD type J44.9 Active 19521942 Problem Type 2 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 [address] [address] November, [facility] [id number] [place] [address] 09468- 3623 November, [facility] [address] [address] November, [facility] [id number] [place] [address] 34448- 2696 Oct, Type 2 diabetes mellitus with other diabetic kidney complication E11.29 [facility] [id number] [place] [address] 80996- 4430 Oct, Primary insomnia F51.01 [place] [id number] [id number] Oct, Bilateral lower extremity edema R60.0 [place] [id number] [place] [address] 41473- 6491 Oct, [facility] [id number] [place] [address] 12872- 0585 Sep, Type 2 diabetes mellitus with other diabetic kidney complication E11.29 and Chronic obstructive pulmonary disease, unspecified COPD type J44.9 [facility] [facility] [address] [address] 1568 15 Aug, 2017 Type 2 diabetes mellitus with other diabetic kidney complication E11.29 [facility] [id number] [place] [address] 26137- 0587 Aug, Gastroesophageal reflux disease without esophagitis K21.9 ; retirement current use of anticoagulant Z79.01 ; Chronic pain syndrome G89.4 ; Essential hypertension I10 and Type 2 diabetes mellitus with other diabetic kidney complication E11.29 [facility] [facility] [id number] [place] [address] 95864- 4804 08 Aug, 2017 Chronic pain syndrome G89.4 [facility] [id number] [place] [address] 28305- 0090 Aug, Type 2 diabetes mellitus with other diabetic kidney complication E11.29 [facility] [address] [address] 7924 Jul, Diabetic polyneuropathy associated with type 2 diabetes mellitus E11.42 [facility] [address] [address] 2[address] Jul, Primary insomnia F51.01 [facility] [id number] [place] [address] 30874- 4292 Jul, [facility] [id number] [place] [address] 14121- 8383 Jul, Type 2 diabetes mellitus with other diabetic kidney complication E11.29 and Chronic obstructive pulmonary disease, unspecified COPD type J44.9 [place] [id number] [place] [address] 71492- 1887 Jul, Type 2 diabetes mellitus with other diabetic kidney complication E11.29 [facility] [id number] [place] [address] 43063- 8038 Jun, Type 2 diabetes mellitus with other diabetic kidney complication E11.29 [facility] [address] [place] [address] 47694- 5259 Jun, [facility] [facility] [address] [place] [address] 68185- 1401 Jun, Chronic obstructive pulmonary disease, unspecified COPD type J44.9 [facility] [address] [address] 6125 May, Type 2 diabetes mellitus with other diabetic kidney complication E11.29 [facility] [facility] [address] [address] 0726 May, 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 [address] [address] 7500 May, Anemia in other chronic diseases classified elsewhere D63.8 ; Chronic obstructive pulmonary disease, unspecified COPD type J44.9 ; Oxygen desaturation during sleep G47.34 ; Sleep apnea in adult G47.33 and Supplemental oxygen dependent Z99.81 [place] [id number] [place] [address] 36313- 0774 08 May, 2017 Type 2 diabetes mellitus with other diabetic kidney complication E11.29 ; Essential hypertension I10 ; Chronic pain syndrome G89.4 ; BMI 40.0-44.9, adult Z68.41 ; Gastroesophageal reflux disease without esophagitis K21.9 ; 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 ; retirement 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 ; Diabetic polyneuropathy associated with type 2 diabetes mellitus E11.42 ; Edema of both legs R60.0 and Supplemental oxygen dependent Z99.81 [place] [id number] [place] [address] 73740- 9936 May, [facility] [id number] [place] [address] 47309- 1013 May, Essential hypertension I10 and Gastroesophageal reflux disease without esophagitis K21.9 [place] [id number] [place] [address] 65989- 7970 May, [facility] [id number] [place] [address] 60505- 0878 May, Type 2 diabetes mellitus with other diabetic kidney complication E11.29 and 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 [place] [id number] [place] [address] 30804- 1202 Apr, Chronic pain syndrome G89.4 and Essential hypertension I10 [facility] [id number] [place] [address] 48875- 5486 Apr, Type 2 diabetes mellitus with other diabetic kidney complication E11.29 [place] [id number] [place] [address] 46497- 3800 Apr, Type 2 diabetes mellitus with other diabetic kidney complication E11.29 [facility] [id number] [place] [address] 15245- 8932 Apr, Essential hypertension I10 [place] [address] [place] [address] [place] [address] 90454- 7603 06 Apr, 2017 Gastroesophageal reflux disease without esophagitis K21.9 [place] [id number] [place] [address] 38534- 3898 05 Apr, 2017 Type 2 diabetes mellitus with other diabetic kidney complication E11.29 [place] [id number] [place] [address] 28455- 8894 Apr, Type 2 diabetes mellitus with other diabetic kidney complication E11.29 and 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 [place] [id number] [place] [address] 84050- 0912 Mar, Encounter for immunization Z23 and Preoperative examination Z01.818 [place] [id number] [place] [address] 07894- 4700 Mar, [facility] [facility] [address] 41515- 1626 Mar, Type 2 diabetes mellitus with other diabetic kidney complication E11.29 [facility] [id number] [place] [address] 36677- 8060 Mar, Type 2 diabetes mellitus with other diabetic kidney complication E11.29 [place] [id number] [place] [address] 22007- 9065 Mar, Gastroesophageal reflux disease without esophagitis K21.9 [place] [id number] [place] [address] 22075- 4112 Mar, Essential hypertension I10 [place] [id number] [place] [address] 52809- 2186 Feb, retirement current use of anticoagulant Z79.01 [place] [id number] [place] [address] 03425- 0089 Feb, Type 2 diabetes mellitus with other diabetic kidney complication E11.29 [place] [id number] [place] [address] 25798- 3947 Feb, Type 2 diabetes mellitus with other diabetic kidney complication E11.29 [facility] [address] [address]- 9462 Feb, Type 2 diabetes mellitus with other diabetic kidney complication E11.29 [facility] [id number] [place] [address] 82145 2546 Feb, Gastroesophageal reflux disease without esophagitis K21.9 [facility] [id number] [place] [address] 24869- 9315 Feb, Type 2 diabetes mellitus with other diabetic kidney complication E11.29 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 [id number] [place] [address] 90618- 2340 Jan, Type 2 diabetes mellitus with other diabetic kidney complication E11.29 [facility] [id number] [place] [address] 69670- 3486 Jan, Type 2 diabetes mellitus with other diabetic kidney complication E11.29 [facility] [address] [id number] [place] [address] 15483- 3419 Jan, Chronic pain syndrome G89.4 [facility] [id number] [place] [address] 33663 2543 Jan, [facility] [address] [address] 2547 Jan, [facility] [address] [address] 2546 Jan, [facility] [address] [id number] [place] [address] 85578 2542 Jan, [facility] [address] [address] [id number] [place] [address] 37181- 2543 Jan, Primary insomnia F51.01 ; Type 2 diabetes mellitus with other diabetic kidney complication E11.29 ; Chronic pain syndrome G89.4 and Essential hypertension I10 [facility] [id number] [address]- 5288 Jan, Primary insomnia F51.01 [place] [id number] [place] [address] 63497- 8186 Jan, Type 2 diabetes mellitus with other diabetic kidney complication E11.29 [place] [address] [place] [id number] [place] [address] 99211- 5665 Jan, [place] [address] [place] [id number] [place] [address] 03429- 9692 Jan, Chronic obstructive pulmonary disease, unspecified COPD type J44.9 [place] [address] [place] [id number] [place] [address] 95211- 6637 Jan, Essential hypertension I10 ; Type 2 diabetes mellitus with other diabetic kidney complication E11.29 ; Chronic obstructive pulmonary disease, unspecified COPD type J44.9 ; Chronic kidney disease, stage 4 (severe) N18.4 ; Right carpal tunnel syndrome G56.01 ; 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 ; computer terminal operator (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 and Diabetic polyneuropathy associated with type 2 diabetes mellitus E11.42 [place] [address] [place] [id number] [place] [address] 08211- 7841 Jan, Gastroesophageal reflux disease without esophagitis K21.9 [place] [address] [place] [id number] [place] [address] 42289- 1205 Dec, [place] [address] [place] [id number] [place] [address] 62778- 7481 Dec, [place] [address] [place] [id number] [place] [address] 80082- 7236 Dec, retirement current use of anticoagulant Z79.01 ; Chronic pain syndrome G89.4 and Essential hypertension I10 [place] [address] [place] [id number] [place] [address] 92737- 2976 Dec, [place] [address] [place] [id number] [place] [address] 92767- 6456 Dec, Type 2 diabetes mellitus with other diabetic kidney complication E11.29 [facility] [address] [address]- 4173 Dec, [facility] [id number] [place] [address] 05766- 6533 Dec, Gastroesophageal reflux disease without esophagitis K21.9 [facility] [id number] [place] [address] 05832- 6543 November, Type 2 diabetes mellitus with other diabetic kidney complication E11.29 [facility] [id number] [place] [address] 36087- 2650 November, [facility] [address] [place] [id number] [place] [address] 41027- 8911 November, Type 2 diabetes mellitus with other diabetic kidney complication E11.29 [facility] [address] [id number] [place] [address] 55780- 2686 November, [facility] [address] [place] [id number] [place] [address] 55585- 2103 November, Type 2 diabetes mellitus with other diabetic kidney complication E11.29 [facility] [address] [place] [address] 75130- 3869 November, [facility] [address] [place] [address] 89842- 9007 Oct, Essential hypertension I10 [facility] [address] [place] [id number] [place] [address] 38693- 8006 Oct, Psoriasis of scalp L40.9 [facility] [id number] [place] [address] 20918- 5340 Oct, Essential hypertension I10 and Chronic pain syndrome G89.4 [facility] [id number] [place] [address] 57965- 2583 Oct, [facility] [id number] [place] [address] 96945- 9834 Sep, Type 2 diabetes mellitus with other diabetic kidney complication E11.29 [place] [address] [place] [address] [id number] [place] [address] 20491- 7696 Sep, [place] [address] [place] [address] [id number] [place] [address] 95132- 5870 Sep, Type 2 diabetes mellitus with other diabetic kidney complication E11.29 [place] [address] [place] [id number] [place] [address] 87955- 3098 Sep, Type 2 diabetes mellitus with other diabetic kidney complication E11.29 [place] [address] [place] [id number] [place] [address] 07017- 5968 Sep, Type 2 diabetes mellitus with other diabetic kidney complication E11.29 ; Chronic kidney disease, stage 4 (severe) N18.4 ; Chronic obstructive pulmonary disease, unspecified COPD type J44.9 ; Iron deficiency anemia due to chronic blood loss D50.0 ; retirement current use of anticoagulant Z79.01 ; Gastroesophageal reflux disease without esophagitis K21.9 ; Essential hypertension I10 ; Primary insomnia F51.01 ; Depression, unspecified depression type F32.9 ; Chronic pain syndrome G89.4 ; Wrist pain, right M25.531 ; Paresthesia of right upper extremity R20.2 and Psoriasis of scalp L40.9 [place] [address] [place] [address] [id number] [place] [address] 00392- 4843 Sep, [place] [address] [place] [id number] [place] [address] 96668- 4997 Aug, Essential hypertension I10 [place] [id number] [place] [address] 05881- 3126 Aug, History of DVT (deep vein thrombosis) Z86.718 [place] [address] [place] [id number] [place] [address] 52598- 2515 Aug, [place] [address] [place] [id number] [place] [address] 76293- 8035 Jul, [place] [address] 10150- 1993 Jul, 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 [address] [address]- 8639 Jul, [facility] [address] [place] [address] [id number] [place] [address] 20703- 0108 Jul, [facility] [address] [address]- 4220 Jul, [facility] [id number] [address]- 5383 Jul, [facility] [address] [address]- 3668 Jul, [facility] [address] [address]- 1134 Jul, Type 2 diabetes mellitus with other diabetic kidney complication E11.29 [facility] [address] [address]- 3940 Jul, History of DVT (deep vein thrombosis) Z86.718 [facility] [address] [address]- 4156 Jun, [facility] [address] [address]- 6741 Jun, History of DVT (deep vein thrombosis) Z86.718 [facility] [address] [address]- 3328 Jun, Post traumatic stress disorder (PTSD) F43.10 [facility] [address] [address]- 2120 07 Jun, 2016 Type 2 diabetes mellitus [...] pain M79.641 and Right wrist pain M25.531 [place] [address] [place] [id number] [place] [address] 66546- 3210 28 May, 2016 [place] [address] 59745- 1841 May, [place] [address] [place] [id number] [place] [address] 75910- 9991 May, [place] [address] [place] [id number] [place] [address] 73777- 0774 15 May, 2016 [place] [address] [place] [id number] [place] [address] 15853- 4088 May, Anemia in other chronic diseases classified elsewhere D63.8 [place] [address] [place] [id number] [place] [address] 87108- 5930 02 May, 2016 [place] [address] [place] [id number] [place] [address] 32411- 7670 10 Apr, 2016 [place] [address] 76528- 6952 27 Mar, 2016 Dermatofibroma D23.9 [facility] [address] [place] [address] [id number] [place] [address] 88909- 5415 20 Mar, 2016 [place] [address] 54033- 5658 14 Mar, 2016 Chronic pain syndrome G89.4 [facility] [address] [address]- 1066 09 Mar, 2016 [facility] [address] [address]- 3356 Mar, [facility] [address] [address]- 9563 Mar, [facility] [address] [address]- 1779 Feb, [facility] [address] [address]- 6897 Feb, [facility] [id number] [address]- 0183 Feb, [facility] [address] [address]- 6293 Feb, [facility] [address] [address]- 7863 Feb, [facility] [address] [address]- 8365 Feb, [facility] [address] [address]- 1504 Feb, Type 2 diabetes mellitus with other [...] Renal failure, chronic, stage 4 (severe) N18.4 [facility] [address] [address]- 4190 Feb, Skin tags, multiple acquired L91.8 [facility] [address] [address]- 7410 Jan, [facility] [id number] [address] Jan, Dental examination Z01.20 [place] [address] [address]- 8906 Jan, [place] [address] [address]- 9964 Jan, Type 2 diabetes mellitus with other diabetic kidney complication E11.29 ; Diabetic polyneuropathy associated with type 2 diabetes mellitus E11.42 ; Iron deficiency anemia due to chronic blood loss D50.0 ; Chronic obstructive pulmonary disease, unspecified COPD type J44.9 ; 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 ; History of DVT (deep vein thrombosis) Z86.718 ; Chronic pain syndrome G89.4 ; Oxygen desaturation during sleep G47.34 ; Sleep apnea in adult G47.33 ; Gastroesophageal reflux disease without esophagitis K21.9 ; Essential hypertension I10 ; Primary insomnia F51.01 ; Depression, unspecified depression type F32.9 ; Skin lesion L98.9 and Renal failure, chronic, stage 4 (severe) N18.4 [place] [address] [address]- 1806 Dec, Diabetes type 2, uncontrolled E11.65 [place] [address] [address]- 7172 Dec, [place] [address] [address]- 9837 Dec, Type 2 diabetes mellitus with other [...] type F32.9 [facility] [id number] [place] [address] [id number] Dec, Dental caries K02.9 [facility] [id number] [place] [address] [id number] Dec, [facility] [id number] [place] [address] [id number] Dec, Dental examination Z01.20 [facility] [id number] [place] [address] [id number] November, Dental examination Z01.20 and Dental caries K02.9 [facility] [id number] [place] [address] [id number] Oct, [facility] [id number] [place] [address] [id number] Oct, [facility] [address] [place] [address] [id number] Sep, [facility] [id number] [place] [address] [id number] Sep, [facility] [id number] [place] [address] [id number] Sep, [facility] [address] [place] [address] [id number] Sep, Other chronic pain 338.29 [facility] [id number] [place] [address] [id number] Aug, Diabetes type 2, uncontrolled E11.65 and Morbid obesity due to excess calories E66.01 [facility] [id number] [place] [address] [id number] Aug, Hair loss L65.9 [facility] [id number] [place] [address] [id number] Aug, [facility] [address] [place] [address] [id number] Jul, [facility] [address] [place] [id number] [place] [address] [id number] Jul, [place] [id number] [place] [address] [id number] Jun, [facility] [address] [place] [address] [id number] Jun, Hair loss L65.9 and Disorder of the skin and subcutaneous tissue, unspecified L98.9 [place] [id number] [place] [address] [id number] May, Type 2 diabetes mellitus with other diabetic kidney complication E11.29 ; Type 2 diabetes mellitus with hyperglycemia E11.65 ; Morbid obesity due to excess calories E66.01 and Essential hypertension I10 [place] [id number] [place] [address] [id number] May, Diabetes type 2, uncontrolled E11.65 ; Encounter for immunization Z23 and Morbid obesity due to excess calories E66.01 [place] [id number] [place] [address] [id number] May, [facility] [id number] [place] [address] [phone] Apr, [place] [id number] [place] [address] [id number] Apr, Hyperglycemia R73.9 [place] [id number] [place] [address] [id number] Apr, [place] [id number] [place] [address] [id number] Apr, Depression F32.9 ; Encounter for immunization Z23 ; Hyperglycemia R73.9 and Anemia in other chronic diseases classified elsewhere D63.8 [facility] [id number][place] [id number] Mar, [facility] [id number] [place] [address] [id number] Feb, Positive occult stool blood test 792.1 [place] [id number] [place] [address] [id number] Feb, Depression 311 ; Other chronic pain 338.29 and Diabetes with renal manifestations, type II or unspecified type, not stated as uncontrolled 250.40 [facility] [id number] [place] [address] [id number]- 3709 Feb, Occult blood in stools 792.1 [facility] [id number] [place] [address] [id number] Feb, Anemia 285.9 ; Occult blood positive stool 792.1 ; Unspecified essential hypertension 401.9 and Other chronic pain 338.29 [facility] [id number] [place] [address] [id number] Feb, [facility] [id number] [place] [address] [id number] Feb, Anemia 285.9 [facility] [id number] [place] [address] [id number] Feb, [facility] [id number] [place] [address] [id number] Feb, [facility] [id number] [place] [address] [id number] Feb, Diabetes with renal manifestations, type II or unspecified type, not stated as uncontrolled 250.40 ; Other chronic pain 338.29 ; Unspecified essential hypertension 401.9 ; Anemia 285.9 and Depression 311 [facility] [id number] [place] [address] [id number] Jan, [place] [id number] [place] [address] [id number] Jan, Anemia 285.9 and Follow up V67.9 [facility] [id number] [place] [address] [id number] Jan, [facility] [id number] [place] [address] [id number] Jan, [facility] [id number] [place] [address] [id number] Jan, [facility] [id number] [place] [address] [id number] Dec, [facility] [id number] [place] [address] 02604- 5816 Oct, [facility] [place] [facility] [address] [facility] [id number] [place] [address]- 8342 Oct, [facility] [place] [facility] [address] [facility] [id number] [place] [address]- 1806 Sep, [facility] [place] [address] [facility] [id number][place] [id number] Sep, [facility] [place] [facility] [address] [facility] [id number] [place] [address]- 6276 Sep, [facility] [place] [address] [facility] [id number], [place] [id number] Aug, [facility] [place] [facility] [address] [facility] [id number] [place] [address]- 2406 Aug, [facility] [place] [facility] [address] [id number] [place] [address]- 3209 Aug, [facility] [place] [address] [facility] [id number][place] [id number] Aug, [facility] [place] [facility] [address] [facility] [id number] [place] [address]- 8997 Aug, [facility] [place] [facility] [address] [facility] [id number] [place] [address]- 9116 Aug, [facility] [place] [address] [id number][place] [id number] Aug, [facility] [place] [facility] [address] [facility] [id number] [place] [address]- 8246 Aug, [facility] [place] [address] [facility] [id number], [place] [id number] Jul, [facility] [place] [facility] [address] [facility] [id number] [place] [address]- 9526 Jul, [facility] [place] [facility] [address] [facility] [id number] [place] [address]- 8986 Jul, [facility] [place] [address] [id number][place] [id number] Jul, [facility] [place] [facility] [address] [facility] [id number] [place] [address]- 7836 Jul, [facility] [place] [address] [facility] [id number] [place] [id number] Jul, [facility] [place] [facility] [address] [facility] [id number] [place] [address]- 2546 Jul, [facility] [place] [address] [facility] [id number] [place] [id number] Jun, [facility] [place] [address] [facility] [id number], [place] [id number] Jun, [facility] [place] [facility] [address] [facility] [id number] [place] [address]- 6766 Jun, [facility] [place] [facility] [address] [facility] [id number] [place] [address]- 9216 Jun, [facility] [place] [address] [facility] [id number], [place] [id number] Jun, [facility] [place] [facility] [address] [facility] [id number] [place] [address]- 2546 Jun, [facility] [place] [address] [facility] [id number], [place] [id number] May, [facility] [place] [facility] [address] [facility] [id number] [place] [address]- 3736 May, [facility] [place] [facility] [address] [facility] [id number] [place] [address]- 8806 May, [facility] [place] [address] [facility] [id number], [place] [id number] Apr, [facility] [place] [facility] [address] [facility] [id number] [place] [address]- 2546 Apr, [facility] [place] [address] [facility] [id number], [place] [id number] Apr, [facility] [place] [address] [facility] [id number], [place] [id number] Apr, [facility] [place] [facility] [address] [facility] [id number] [place] [address]- 5366 Apr, [facility] [place] [facility] [address] [id number] [place] [address]- 1707 Apr, [facility] [place] [address] [id number] [place] [id number] Mar, [facility] [place] [facility] [address] [facility] [id number] [place] [address]- 3893 Mar, [facility] [place] [address] [id number] [place] [id number] Mar, [facility] [place] [facility] [address] [id number] [place] [address]- 2439 Mar, [facility] [place] [address] [id number] [place] [id number] Mar, [facility] [place] [facility] [address] [facility] [id number] [place] [address]- 9590 Mar, [facility] [place] [address] [id number] [place] [id number] Mar, [facility] [place] [facility] [address] [facility] [id number] [place] [address]- 9161 Mar, [facility] [place] [address] [id number] [place] [id number] Mar, [facility] [place] [facility] [address] [facility] [id number] [place] [address]- 8772 Mar, [facility] [place] [address] [id number] [place] [id number] Feb, [facility] [place] [facility] [address] [facility] [id number] [place] [address]- 0296 Feb, [facility] [place] [address] [id number] [place] [id number] Jan, [facility] [place] [facility] [address] [facility] [id number] [place] [address]- 9697 Jan, [facility] [place] [address] [id number] [place] [id number] Jan, [facility] [place] [facility] [address] [facility] [id number] [place] [address]- 7026 Jan, [facility] [place] [address] [id number] [place] [id number] Jan, [facility] [place] [facility] [address] [id number] [place] [address]- 2546 Jan, [facility] [place] [facility] [address] [id number] [place] [address]- 2546 Dec, [facility] [place] [facility] [address] [id number] [place] [address]- 2546 Dec, [facility] [place] [address] [id number] [place] [id number] November, [facility] [place] [facility] [address] [id number] [place] [address]- 4946 November, [facility] [place] [address] [id number] [place] [id number] November, [facility] [place] [facility] [address] [id number] [place] [address]- 1493 November, [facility] [place] [address] [id number], [place] [id number] Oct, [facility] [place] [facility] [address] [id number] [place] [address]- 0876 Oct, [facility] [place] [facility] [address] [facility] [id number] [place] [address]- 8452 Oct, [facility] [place] [facility] [address] [id number] [place] [address]- 6186 Oct, [facility] [place] [facility] [address] [id number] [place] [address]- 2546 Oct, [facility] [place] [facility] [address] [id number] [place] [address]- 0886 Oct, [facility] [place] [address] [id number] [place] [id number] Sep, [facility] [place] [address] [id number] [place] [id number] Sep, [facility] [place] [facility] [address] [facility] [id number] [place] [address]- 1672 Sep, [facility] [place] [facility] [address] [facility] [id number] [place] [address]- 2448 Sep, [facility] [place] [address] [facility] [id number], [place] 406395967 Sep, [facility] [place] [facility] [address] [facility] [id number] [place] [address]- 4220 Sep, [facility] [place] [facility] [address] [facility] [id number] [place] [address]- 4750 Aug, [facility] [place] [facility] [address] [facility] [id number] [place] [address]- 2043 Aug, [facility] [place] [address] [facility] [id number], [place] [id number] Aug, [facility] [place] [address] [id number] [id number] Aug, [facility] [place] [facility] [address] [place] [address]- 0387 Aug, [facility] [place] [address] [facility] [id number], [place] [id number] Aug, [facility] [place] [facility] [address] [address]- 3935 Aug, [facility] [place] [address] [facility] [id number], [place] 958300004 Aug, [facility] [place] [facility] [address] [facility] [id number] [place] [address]- 2214 Aug, [facility] [place] [address] [facility] [id number], [place] [id number] Aug, [facility] [place] [facility] [address] [facility] [id number] [place] [address]- 2397 Aug, [facility] [place] [address] [facility] [id number], [place] 200584805 Aug, [facility] [place] [facility] [address] [address]- 2546 Aug, [facility] [address] [id number] [place] [address]- 2546 Jul, [facility] [address] [facility] [id number], [place] 734901919 Jun, [facility] [address] [facility] [id number] [place] [address]- 2546 Jun, [facility] [address] [id number] [place] [address]- 2546 Jun, [facility] [address] [id number] [place] [address]- 2546 Jun, [facility] [address] [facility] [id number], [place] [id number] Jun, [facility] [address] [id number] [place] [address]- 2546 Jun, [facility] [address] [facility] [id number] [place] [address]- 6666 Jun, [facility] [address] [facility] [id number], [place] [id number] Jun, [facility] [address] [id number] [place] [address]- 2546 Jun, [facility] [place] [facility] [address] [facility] [id number] [place] [address]- 2546 May, [facility] [address] [facility] [id number], [place] [id number] May, [facility] [place] [facility] [address] [id number] [place] [address]- 2546 May, [facility] [place] [facility] [address] [facility] [id number] [place] [address]- 2546 May, [facility] [place] [facility] [address] [facility] [id number] [place] [address]- 2546 May, [facility] [place] [facility] [address] [facility] [id number] [place] [address]- 7656 May, [facility] [address] [id number], [place] 080279154 May, [facility] [place] [facility] [address] [facility] [id number] [place] [address]- 6396 May, [facility] [address] [id number], [place] 929500098 May, [facility] [place] [facility] [address] [facility] [id number] [place] [address]- 8086 May, [facility] [place] [address] [id number], [place] [id number] Apr, [facility] [place] [facility] [address] [facility] [id number] [place] [address]- 0182 Apr, [facility] [place] [facility] [address] [facility] [id number] [place] [address]- 0740 Apr, [facility] [address] [facility] [id number], [place] 613133272 Apr, [facility] [place] [facility] [address] [facility] [id number] [place] 772478- 1838 Apr, [facility] [place] [facility] [address] [facility] [id number] [place] [address]- 8813 Apr, [facility] [place] [address] [id number], [place] [id number] Apr, [facility] [place] [facility] [address] [facility] [id number] [place] [address]- 9564 Apr, [facility] [place] [facility] [address] [facility] [id number] [place] [address]- 3764 Apr, [facility] [place] [facility] [address] [facility] [id number] [place] [address]- 5037 Apr, [facility] [place] [address] [facility] [id number], [place] [id number] Apr, [facility] [place] [facility] [address] [facility] [id number] [place] [address]- 1198 Apr, [facility] [place] [address] [id number], [place] 528434195 Apr, [facility] [address] [facility] [id number] [place] [address]- 0224 Apr, [facility] [place] [address] [id number], [place] [id number] Apr, [facility] [place] [facility] [address] [facility] [id number] [place] [address]- 1535 Apr, [facility] [place] [facility] [address] [facility] [id number] [place] [address]- 7368 Apr, [facility] [address] [facility] [id number] [place] [address]- 8123 Apr, [facility] [place] [address] [id number], [place] [id number] Apr, [facility] [address]005[address] [address]- 3503 Mar, [facility] [address] [facility] [id number] [place] [address]- 1808 Mar, [facility] [place] [address] [id number], [place] 390561622 Mar, [facility] [place] [address] [id number], [place] 511027283 Mar, [facility] [place] [address] [id number], [place] [id number] 16 Mar, 2013 [facility] [place] [address] [id number], [place] 200400326 Feb, [facility] [place] [address] [id number], [place] 397465064 Feb, [facility] [place] [address] [id number], [place] 073137520 Feb, [facility] [place] [facility] [address] [facility] [id number] [place] [address]- 9216 Feb, [facility] [place] [address] [id number], [place] [id number] Feb, [facility] [place] [address] [id number], [place] 401583521 Feb, [facility] [place] [address] [id number] [place] 780082950 Feb, [facility] [place] [address] [id number] [place] 693654358 Feb, [facility] [place] [address] [id number] [place] [id number] Feb, [facility] [place] [address] [id number] [place] 907404980 Jan, [facility] [place] [address] [id number] [place] 353952488 Jan, [facility] [place] [address] [id number] [place] 756331417 Jan, [facility] [place] [address] [id number] [place] 183525555 Jan, [facility] [place] [address] [id number] [place] 793892229 Jan, [facility] [address] [facility] [id number] [place] [address]- 2546 Jan, [facility] [place] [address] [id number] [place] [id number] Jan, [facility] [place] [address] [id number] [place] 206078068 Jan, [facility] [place] [address] [id number] [place] 831501063 Dec, [facility] [place] [address] [id number] [place] 176113242 November, [facility] [place] [address] [id number] [place] 262356102 November, [facility] [place] [address] [id number] [place] 017642298 November, [facility] [place] [address] [id number] [place] 603987298 November, [facility] [place] [address] [id number] [place] 508427310 November, [facility] [place] [address] [id number] [place] 231039380 November, [facility] [place] [address] [id number] [place] [id number] Jul, [facility] [place] [address] [id number] [place] 622887502 Jul, [facility] [place] [address] [id number] [place] 138515153 Jul, [facility] [place] [address] [id number] [place] 950149394 Jun, [facility] [place] [facility] [address] [facility] [id number] [place] [address]- 4511 Jun, [facility] [place] [address] [id number] [place] [id number] May, [facility] [place] [facility] [address] [facility] [id number] [place] [address]- 8815 May, [facility] [place] [address] [facility] [id number] [place] [id number] May, [facility] [address] [facility] [id number] [place] [address]- 5836 May, [facility] [place] [address] [facility] [id number] [place] [id number] May, [facility] [place] [facility] [address] [facility] [id number] [place] [address]- 4563 May, [facility] [place] [address] [facility] [id number], [place] 889578760 Apr, [facility] [place] [facility] [address]00565100[place] [address]- 1323 Apr, [facility] [place] [facility] [address] [facility] [id number] [place] [address]- 3978 Apr, [facility] [place] [address] [id number], [place] [id number] Apr, [facility] [place] [address] [facility] [id number], [place] 713916193 Apr, [facility] [place] [facility] [address] [facility] [id number] [place] [address]- 3783 Apr, [facility] [place] [facility] [address] [facility] [id number] [place] [address]- 0249 Apr, [facility] [place] [address] [id number] [place] [id number] Apr, [facility] [address] [facility] [id number] [place] [address]- 9702 Apr, [facility] [place] [address] [id number] [place] [id number] Apr, [facility] [place] [address] [id number] [place] [id number] Apr, [facility] [place] [address] [id number] [place] [id number] Mar, [facility] [place] [address] [id number] [place] 313319960 Feb, [facility] [place] [address] [id number] [place] 759204284 Jan, [facility] [place] [address] [id number] [place] [id number] Dec, [facility] [place] [address] [id number] [place] [id number] Dec, [facility] [place] [address] [id number] [place] [id number] Dec, [facility] [place] [address] [id number] [place] [id number] Dec, [facility] [place] [address] [id number] [place] [id number] Dec, [facility] [place] [address] [id number] [place] [id number] November, [facility] [place] [address] [id number] [place] [id number] November, [facility] [place] [address] [id number] [place] [id number] November, [facility] [address] [facility] [id number] [place] [address] November, [facility] [place] [address] [id number] [id number] November, [facility] [place] [address] [id number] [place] [id number] November, [facility] [place] [address] [id number] [place] [id number] Oct, [facility] [place] [address] [id number] [place] [id number] Oct, [facility] [place] [address] [id number] [place] [id number] Oct, [facility] [place] [address] [id number] [place] [id number] Oct, [facility] [place] [address] [id number] [place] [id number] Oct, [facility] [place] [address] [id number] [place] [id number] Oct, [facility] [place] [address] [id number] [place] [id number] Sep, [facility] [place] [address] [id number] [place] [id number] Aug, [facility] [place] [address] [id number] [place] [id number] Aug, [facility] [place] [address] [id number] [place] [id number] Jul, [facility] [place] [facility] [id number] [address] Jun, [facility] [place] [facility] [id number] [address] Jun, [facility] [place] [facility] [id number] [address] Jun, [facility] [place] [facility] [address] [facility] [id number] [address] Jun, [facility] [place] [facility] [id number] [place] [address] May, [facility] [place] [facility] [id number] [address] May, [facility] [place] [facility] [id number] [address] 25 Apr, 2011 [facility] [address] [id number] [place] [address] 17 Apr, 2011 [facility] [place] [facility] [address] [id number] [place] [address] 10 Apr, 2011 [facility] [place] [facility] [address] [id number] [place] [address] Feb, [facility] [place] [facility] [address] [id number] [place] [address] 15 Aug, 2010 [facility] [place] [facility] [address] [id number] [place] [address] Jul, [facility] [place] [facility] [address] [id number] [place] [address] Jun, [facility] [place] [facility] [address] [id number] [place] [address] May, [facility] [place] [facility] [address] [id number] [place] [address] May, [facility] [place] [facility] [address] [id number] [place] [address] May, [facility] [place] [facility] [address] [facility] [id number] [place] [address] May, [facility] [place] [facility] [address] [id number] [place] [address] May, [facility] [place] [facility] [address] [id number] [place] [address] Aug, [facility] [place] [facility] [address] [id number] [place] [address] 29 Jun, 2009 [facility] [place] [facility] [address] [id number] [place] [address]46 Jun, [facility] [place] [facility] [address] [id number] [place] [address] Jun, [facility] [address] [id number] [address] May, [facility] [id number] [address] Apr, [facility] [id number] [address] Apr, [facility] [id number] [place] [address] Apr, [facility] [id number] [address] Jan, [facility] [id number] [place] [address] Oct, [facility] [id number] [address] May, [facility] [id number] [address] May, IMMUNIZATIONS No Known Immunizations SOCIAL [...] Dialysis [facility] Reveles 2012 -Dr. Simon now [facility] Medical History Colonoscopy (polyps 2 ) [...]
--- OUTSIDE RECORDS SUMMARY | 2017-12-22 19:55 | XMS REPORT ---
Author Author CHELSY VILLAFANA Organization [facility] Address [address] [place] [address] Care Team Providers Care [employer] Supervisor Name Role Phone CHELSY VILLAFANA Unavailable PROBLEMS Type Condition ICD9-CM Code HQR27-GT Code Onset Dates Condition Status SNOMED Code Problem Chronic pain syndrome G89.4 Active 890456229 Problem Type 2 diabetes mellitus with hyperglycemia E11.65 Active 134096854619855 Problem Primary insomnia F51.01 Active 9721867 Problem Bilateral lower extremity edema R60.0 Active 385880898 Problem Anemia in other chronic diseases classified elsewhere D63.8 Active 006789763 Problem Supplemental oxygen dependent Z99.81 Active 901452485854 Problem Right carpal tunnel syndrome G56.01 Active [id number] Problem 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 Active 621064173480721 Problem Paresthesia of right upper extremity R20.2 Active 61988552 Problem Chronic kidney disease, stage 4 (severe) N18.4 Active 436628067 Problem 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 Active 018356016 Problem Psoriasis of scalp L40.9 Active 593827244 Problem Gastroesophageal reflux disease without esophagitis K21.9 Active 727623125 Problem Chronic obstructive pulmonary disease, unspecified COPD type J44.9 Active 23462750 Problem Type 2 diabetes mellitus with other diabetic kidney complication E11.29 Active 720716054 Problem Diabetic polyneuropathy associated with type 2 diabetes mellitus E11.42 Active 65882048 Problem History of DVT (deep vein thrombosis) Z86.718 Active 484150753 Problem USP current use of anticoagulant Z79.01 Active 772429663 Problem Oxygen desaturation during sleep G47.34 Active 362058454 Problem Essential hypertension I10 Active 58117016 Problem Depression, unspecified depression type F32.9 Active 01884281 Problem Sleep apnea in adult G47.33 Active 23615773 ALLERGIES No Information ENCOUNTERS Encounter Location Date Diagnosis [facility] [address] [address] November, [facility] [id number] [place] [address] 80494- 1703 Oct, Type 2 diabetes mellitus with other diabetic kidney complication E11.29 [place] [address] [place] [address] 88794- 4771 Oct, Primary insomnia F51.01 [place] [id number] [id number] Oct, Bilateral lower extremity edema R60.0 [place] [id number] [place] [address] 17045- 4871 Oct, [place] [id number] [place] [address] 38747- 1779 Sep, Type 2 diabetes mellitus with other diabetic kidney complication E11.29 and Chronic obstructive pulmonary disease, unspecified COPD type J44.9 [place] [address] [place] [address] 58434- 6181 Aug, Type 2 diabetes mellitus with other diabetic kidney complication E11.29 [place] [id number] [place] [address] 52267- 8728 Aug, Gastroesophageal reflux disease without esophagitis K21.9 ; USP current use of anticoagulant Z79.01 ; Chronic pain syndrome G89.4 ; Essential hypertension I10 and Type 2 diabetes mellitus with other diabetic kidney complication E11.29 [place] [address] [address] 08 Aug, 2017 Chronic pain syndrome G89.4 [place] [id number] [place] [address] 85531- 0726 Aug, Type 2 diabetes mellitus with other diabetic kidney complication E11.29 [place] [address] [place] [address] 27184- 9799 Jul, Diabetic polyneuropathy associated with type 2 diabetes mellitus E11.42 [facility] [facility] [id number] [address] 7235 Jul, Primary insomnia F51.01 [place] [id number] [place] [address] 81348- 9478 Jul, [facility] [id number] [place] [address] 79612- 2550 Jul, Type 2 diabetes mellitus with other diabetic kidney complication E11.29 and Chronic obstructive pulmonary disease, unspecified COPD type J44.9 [facility] [id number] [place] [address] 99434- 7494 Jul, Type 2 diabetes mellitus with other diabetic kidney complication E11.29 [place] [id number] [place] [address] 29138- 5892 Jun, Type 2 diabetes mellitus with other diabetic kidney complication E11.29 [place] [id number] [place] [address] 09479- 6783 Jun, [place] [id number] [place] [address] 53241- 4090 Jun, Chronic obstructive pulmonary disease, unspecified COPD type J44.9 [facility] [id number] [place] [address] 12878- 4010 May, Type 2 diabetes mellitus with other diabetic kidney complication E11.29 [place] [address] [place] [address] 67573- 4716 May, USP current use of anticoagulant Z79.01 and Essential hypertension I10 [place] [id number] [place] [address] 84643- 1557 May, Anemia in other chronic diseases classified elsewhere D63.8 ; Chronic obstructive pulmonary disease, unspecified COPD type J44.9 ; Oxygen desaturation during sleep G47.34 ; Sleep apnea in adult G47.33 and Supplemental oxygen dependent Z99.81 [place] [address] [address]- 0953 May, Type 2 diabetes mellitus with other diabetic kidney complication E11.29 ; Essential hypertension I10 ; Chronic pain syndrome G89.4 ; BMI 40.0-44.9, adult Z68.41 ; Gastroesophageal reflux disease without esophagitis K21.9 ; 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 ; 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 ; Diabetic polyneuropathy associated with type 2 diabetes mellitus E11.42 ; Edema of both legs R60.0 and Supplemental oxygen dependent Z99.81 [place] [id number] [place] [address] 75287- 1561 May, [place] [id number] [place] [address] 40717- 0035 May, Essential hypertension I10 and Gastroesophageal reflux disease without esophagitis K21.9 [place] [id number] [place] [address] 01140- 3961 May, [place] [address] 90171- 5539 May, Type 2 diabetes mellitus with other diabetic kidney complication E11.29 and USP current use of anticoagulant Z79.01 [place] [id number] [place] [address] 62420- 1706 Apr, Chronic pain syndrome G89.4 and Essential hypertension I10 [place] [id number] [place] [address] 11840- 6189 Apr, Type 2 diabetes mellitus with other diabetic kidney complication E11.29 [place] [id number] [place] [address] 26004- 2736 Apr, Type 2 diabetes mellitus with other diabetic kidney complication E11.29 [place] [id number] [place] [address] 11574- 4686 Apr, Essential hypertension I10 [place] [id number] [place] [address] 50145- 6526 Apr, Gastroesophageal reflux disease without esophagitis K21.9 [place] [id number] [place] [address] 75436- 6652 Apr, Type 2 diabetes mellitus with other diabetic kidney complication E11.29 [facility] [id number] [place] [address] 73250- 6210 Apr, Type 2 diabetes mellitus with other diabetic kidney complication E11.29 and 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 [facility] [id number] [place] [address] 15950- 8811 Mar, Encounter for immunization Z23 and Preoperative examination Z01.818 [facility] [address] [address]39- 3694 Mar, [place] [address] 72852- 1085 Mar, Type 2 diabetes mellitus with other diabetic kidney complication E11.29 [place] [address] 13765- 0796 Mar, Type 2 diabetes mellitus with other diabetic kidney complication E11.29 [place] [id number] [place] [address] 42509- 7685 Mar, Gastroesophageal reflux disease without esophagitis K21.9 [facility] [address] 12239- 0700 Mar, Essential hypertension I10 [place] [id number] [place] [address] 71047- 1196 Feb, 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 [facility] [id number] [place] [address] 17053- 1951 Feb, Type 2 diabetes mellitus with other diabetic kidney complication E11.29 [facility] [id number] [place] [address] 28387- 4489 Feb, Type 2 diabetes mellitus with other diabetic kidney complication E11.29 [facility] [id number] [place] [address] 93735- 7317 Feb, Type 2 diabetes mellitus with other diabetic kidney complication E11.29 [facility] [id number] [place] [address] 43409- 8363 Feb, Gastroesophageal reflux disease without esophagitis K21.9 [facility] [id number] [place] [address] 04090- 1802 Feb, Type 2 diabetes mellitus with other diabetic kidney complication E11.29 [facility] [address] [place] [address] 82832- 8703 Feb, 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 [facility] [id number] [place] [address] 76582- 3157 Jan, Type 2 diabetes mellitus with other diabetic kidney complication E11.29 [facility] [id number] [place] [address] 73053- 9404 Jan, Type 2 diabetes mellitus with other diabetic kidney complication E11.29 [facility] [id number] [place] [address] 85557- 5371 Jan, Chronic pain syndrome G89.4 [facility] [id number] [place] [address] 14607- 4443 Jan, [facility] [id number] [place] [address] 34499- 3351 Jan, [facility] [address] [place] [address] 82598- 7365 Jan, [facility] [address] [place] [address] 05783- 3673 Jan, [facility] [id number] [place] [address] 91465- 5311 Jan, Primary insomnia F51.01 ; Type 2 diabetes mellitus with other diabetic kidney complication E11.29 ; Chronic pain syndrome G89.4 and Essential hypertension I10 [facility] [address] [place] [address] 20179- 4576 Jan, Primary insomnia F51.01 [facility] [address] [place] [address] 99713- 1880 Jan, Type 2 diabetes mellitus with other diabetic kidney complication E11.29 [facility] [address] [address]- 1287 Jan, [facility] [id number] [place] [address] 88226- 6387 Jan, Chronic obstructive pulmonary disease, unspecified COPD type J44.9 [facility] [address] [place] [address] 70293- 8557 Jan, Essential hypertension I10 ; Type 2 [...] type 2 diabetes mellitus E11.42 [place] [id number] [place] [address] 54061- 5999 Jan, Gastroesophageal reflux disease without esophagitis K21.9 [facility] [id number] [place] [address] 04006- 3051 Dec, [place] [id number] [place] [address] 26021- 7344 Dec, [facility] [id number] [place] [address] 89896- 3443 Dec, 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 ; Chronic pain syndrome G89.4 and Essential hypertension I10 [facility] [address] [place] [address] 33601- 6487 Dec, [facility] [id number] [place] [address] 51158- 4769 Dec, Type 2 diabetes mellitus with other diabetic kidney complication E11.29 [facility] [id number] [place] [address] 11703- 2255 Dec, [facility] [id number] [place] [address] 09492- 9359 Dec, Gastroesophageal reflux disease without esophagitis K21.9 [facility] [id number] [place] [address] 36473- 2356 November, Type 2 diabetes mellitus with other diabetic kidney complication E11.29 [facility] [id number] [place] [address] 37194- 3897 November, [facility] [id number] [place] [address] 26843- 4706 November, Type 2 diabetes mellitus with other diabetic kidney complication E11.29 [facility] [id number] [place] [address] 42552- 3178 November, [facility] [id number] [place] [address] 91628- 1356 November, Type 2 diabetes mellitus with other diabetic kidney complication E11.29 [facility] [id number] [place] [address] 05002- 7347 November, [facility] [id number] [place] [address] 24642- 1491 Oct, Essential hypertension I10 [facility] [id number] [place] [address] 90430- 6493 Oct, Psoriasis of scalp L40.9 [facility] [id number] [place] [address] 03036- 2514 Oct, Essential hypertension I10 and Chronic pain syndrome G89.4 [facility] [id number] [place] [address] 56086- 0647 Oct, [facility] [id number] [place] [address] 17324- 2418 Sep, Type 2 diabetes mellitus with other diabetic kidney complication E11.29 [facility] [id number] [place] [address] 85819- 0467 Sep, [facility] [id number] [place] [address] 31366- 7199 Sep, Type 2 diabetes mellitus with other diabetic kidney complication E11.29 [place] [id number] [place] [address] 02369- 3788 Sep, Type 2 diabetes mellitus with other diabetic kidney complication E11.29 [place] [id number] [place] [address] 51503- 2693 09 Sep, 2016 Type 2 diabetes mellitus with other diabetic kidney complication E11.29 ; Chronic kidney disease, stage 4 (severe) N18.4 ; Chronic obstructive pulmonary disease, unspecified COPD type J44.9 ; Iron deficiency anemia due to chronic blood loss D50.0 ; 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 ; Gastroesophageal reflux disease without esophagitis K21.9 ; Essential hypertension I10 ; Primary insomnia F51.01 ; Depression, unspecified depression type F32.9 ; Chronic pain syndrome G89.4 ; Wrist pain, right M25.531 ; Paresthesia of right upper extremity R20.2 and Psoriasis of scalp L40.9 [place] [id number] [place] [address] 08847- 4935 Sep, [place] [id number] [place] [address] 70537- 7950 Aug, Essential hypertension I10 [place] [id number] [place] [address] 23574- 9457 Aug, History of DVT (deep vein thrombosis) Z86.718 [place] [id number] [place] [address] 02175- 1688 Aug, [place] [id number] [place] [address] 62724- 0009 Jul, [place] [id number] [place] [address] 97293- 1523 Jul, [place] [id number] [place] [address] 61581- 6463 Jul, 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 ; Chronic pain syndrome G89.4 and Chronic kidney disease, stage 4 (severe) N18.4 [place] [address] [address]- 7701 Jul, [place] [address] [address]- 2669 Jul, [place] [address] [address]- 6508 Jul, [place] [id number] [place] [address] 59290- 5693 Jul, [place] [address] [address]- 2530 Jul, [place] [address] [place] [address] 99363- 5779 Jul, Type 2 diabetes mellitus with other diabetic kidney complication E11.29 [place] [address] [address]- 8834 Jul, History of DVT (deep vein thrombosis) Z86.718 [place] [address] [address]- 3898 Jun, [place] [address] [place] [address] 90610- 8407 Jun, History of DVT (deep vein thrombosis) Z86.718 [place] [address] [address]- 5203 15 Jun, 2016 Post traumatic stress disorder (PTSD) F43.10 [place] [address] [address]- 9810 07 Jun, 2016 Type 2 diabetes mellitus with other diabetic kidney complication E11.29 ; Diabetic polyneuropathy associated with type 2 diabetes mellitus E11.42 ; Iron deficiency anemia due to chronic blood loss D50.0 ; Chronic obstructive pulmonary disease, unspecified COPD type J44.9 ; 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 [...] pain M79.641 and Right wrist pain M25.531 [facility] [address] 97493- 6329 28 May, 2016 [facility] [address] 19526- 0223 23 May, 2016 [place] [id number] [place] [address] 87039- 8525 21 May, 2016 [place] [address] 13567- 8679 15 May, 2016 [place] [address] 31304- 3364 11 May, 2016 Anemia in other chronic diseases classified elsewhere D63.8 [place] [address] 75667- 5779 02 May, 2016 [facility] [id number] [place] [address] 78199- 1261 10 Apr, 2016 [facility] [id number] [place] [address] 94415- 9760 27 Mar, 2016 Dermatofibroma D23.9 [facility] [id number] [place] [address] 35303- 8073 20 Mar, 2016 [facility] [address] 09735- 6835 14 Mar, 2016 Chronic pain syndrome G89.4 [facility] [id number] [place] [address] 09250- 5917 09 Mar, 2016 [facility] [address] 82255- 5644 Mar, [facility] [address] [address]- 7175 Mar, [facility] [address] [place] [address] 10773- 6319 Feb, [facility] [address] [address]- 3869 Feb, [facility] [id number] [place] [address] 98013- 9597 Feb, [facility] [id number] [place] [address] 16211- 9507 Feb, [facility] [id number] [place] [address] 78558- 9261 Feb, [facility] [id number] [place] [address] 28987- 8265 Feb, [facility] [id number] [place] [address] 35014- 3954 Feb, Type 2 diabetes mellitus with other [...] Renal failure, chronic, stage 4 (severe) N18.4 [facility] [address] [place] [address] 74988- 6173 Feb, Skin tags, multiple acquired L91.8 [facility] [address] [address]- 2058 Jan, [place] [address] [facility] [id number] [id number] Jan, Dental examination Z01.20 [place] [address] [address]- 6127 Jan, [place] [address] [place] [id number] [address]- 7173 Jan, Type 2 diabetes mellitus with other [...] chronic, stage 4 (severe) N18.4 [place] [address] [address]- 7520 Dec, Diabetes type 2, uncontrolled E11.65 [place] [address] [address]- 9013 Dec, [address] [address]- 3726 Dec, Type 2 diabetes mellitus with other diabetic kidney complication E11.29 ; Diabetic polyneuropathy associated with type 2 diabetes mellitus E11.42 ; Iron deficiency anemia due to chronic blood loss D50.0 ; Chronic obstructive pulmonary disease, unspecified COPD type J44.9 ; 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 ; History of DVT (deep vein thrombosis) Z86.718 ; Chronic pain syndrome G89.4 ; Oxygen desaturation during sleep G47.34 ; Sleep apnea in adult G47.33 ; Gastroesophageal reflux disease without esophagitis K21.9 ; Essential hypertension I10 ; Primary insomnia F51.01 and Depression, unspecified depression type F32.9 [facility] [address] [id number] [id number] Dec, Dental caries K02.9 [facility] [id number] [place] [address] [id number] Dec, [facility] [address] [id number] [id number] Dec, Dental examination Z01.20 [facility] [id number] [place] [address] [id number] November, Dental examination Z01.20 and Dental caries K02.9 [facility] [id number] [place] [address] [id number] Oct, [facility] [id number] [place] [address] [id number] Oct, [facility] [id number] [place] [address] [id number] Sep, [facility] [id number] [place] [address] [id number] Sep, [facility] [id number] [place] [address] [id number] Sep, [facility] [id number] [place] [address] [id number] Sep, Other chronic pain 338.29 [facility] [id number] [place] [address] [id number] Aug, Diabetes type 2, uncontrolled E11.65 and Morbid obesity due to excess calories E66.01 [facility] [id number] [place] [address] [id number] Aug, Hair loss L65.9 [facility] [id number] [place] [address] [id number] Aug, [facility] [id number] [place] [address] [id number] Jul, [facility] [id number] [place] [address] [id number] Jul, [facility] [id number] [place] [address] [id number] Jun, [place] [id number] [place] [address] [id number] Jun, Hair loss L65.9 and Disorder of the skin and subcutaneous tissue, unspecified L98.9 [place] [id number] [place] [address] [id number] May, Type 2 diabetes mellitus with other diabetic kidney complication E11.29 ; Type 2 diabetes mellitus with hyperglycemia E11.65 ; Morbid obesity due to excess calories E66.01 and Essential hypertension I10 [place] [id number] [place] [address] [id number] May, Diabetes type 2, uncontrolled E11.65 ; Encounter for immunization Z23 and Morbid obesity due to excess calories E66.01 [place] [id number] [place] [address] [id number] May, [facility] [address] 09550- 5821 Apr, [place] [id number] [place] [address] [id number] Apr, Hyperglycemia R73.9 [place] [id number] [place] [address] [id number] Apr, [place] [id number] [place] [address] [id number] Apr, Depression F32.9 ; Encounter for immunization Z23 ; Hyperglycemia R73.9 and Anemia in other chronic diseases classified elsewhere D63.8 [facility] [address]00565[address] [id number] Mar, [id number] [place] [address] [id number] Feb, Positive occult stool blood test 792.[address] [id number] Feb, Depression 311 ; Other chronic pain 338.29 and Diabetes with renal manifestations, type II or unspecified type, not stated as uncontrolled 250.40 [facility] [id number] [place] [address] 10999- 2817 Feb, Occult blood in stools 792.1 [facility] [id number] [id number] Feb, Anemia 285.9 ; Occult blood positive stool 792.1 ; Unspecified essential hypertension 401.9 and Other chronic pain 338.29 [facility] [id number] [place] [address] [id number] Feb, [facility] [id number] [place] [address] [id number] Feb, Anemia 285.9 [facility] [id number] [place] [address] [id number] Feb, [facility] [id number] [place] [address] [id number] Feb, [facility] [id number] [place] [address] [id number] Feb, Diabetes with renal manifestations, type II or unspecified type, not stated as uncontrolled 250.40 ; Other chronic pain 338.29 ; Unspecified essential hypertension 401.9 ; Anemia 285.9 and Depression 311 [facility] [id number] [place] [address] [id number] Jan, [facility] [id number] [place] [address] [id number] Jan, Anemia 285.9 and Follow up V67.9 [facility] [id number] [place] [address] [id number] Jan, [facility] [id number] [place] [address] [id number] Jan, [facility] [id number] [place] [address] [id number] Jan, [facility] [id number] [place] [address] [id number] Dec, [facility] [id number] [place] [address] [id number]- 4248 Oct, [facility] [id number] [place] [address] 76329- 7747 Oct, [facility] [id number] [place] [address] 21512- 2796 Sep, [facility] [address] [facility] [id number] [place] [id number] Sep, [facility] [place] [facility] [address] [facility] [id number] [address]- 8026 Sep, [facility] [address] [facility] [id number], [place] [id number] Aug, [facility] [place] [facility] [address] [facility] [id number] [address]- 6006 Aug, [facility] [place] [facility] [address] [facility] [id number] [address]- 7834 Aug, [facility] [place] [address] [facility] [id number], [place] [id number] Aug, [facility] [place] [facility] [address]00565100[place] [address]- 3873 Aug, [facility] [place] [facility] [address] [id number] [address]- 2125 Aug, [facility] [place] [address] [facility] [id number][place] [id number] Aug, [facility] [place] [facility] [address] [id number] [address]- 5866 Aug, [facility] [address] [facility] [id number], [place] [id number] Jul, [facility] [place] [facility] [address]00565100[place] [address]- 9486 Jul, [facility] [place] [facility] [address] [facility] [id number] [place] [address]- 5234 Jul, [facility] [address] [facility] [id number], [place] [id number] Jul, [facility] [place] [facility] [address] [facility] [id number] [address]- 0506 Jul, [facility] [address] [facility] [id number], [place] [id number] Jul, [facility] [place] [facility] [address] [facility] [id number] [place] [address]- 2546 Jul, [facility] [address] [id number] [place] [id number] Jun, [facility] [address] [facility] [id number], [place] [id number] Jun, [facility] [place] [facility] [address] [facility] [id number] [address]- 3426 Jun, [facility] [place] [facility] [address] [facility] [id number] [place] [address]- 5014 Jun, [facility] [address] [facility] [id number] [place] [id number] Jun, [facility] [place] [facility] [address] [facility] [id number] [place] [address]- 1576 Jun, [facility] [address] [id number][place] [id number] May, [facility] [place] [facility] [address] [facility] [id number] [address]- 3946 May, [facility] [place] [facility] [address] [facility] [id number] [place] [address]- 2023 May, [facility] [address] [facility] [id number], [place] 095900535 Apr, [facility] [place] [facility] [address] [facility] [id number] [place] [address]- 7826 Apr, [facility] [address] [facility] [id number], [place] [id number] Apr, [facility] [address] [facility] [id number], [place] [id number] Apr, [facility] [place] [facility] [address] [facility] [id number] [address]- 6996 Apr, [facility] [place] [facility] [address] [facility] [id number] [place] [address]- 7536 Apr, [facility] [address] [facility] [id number], [place] [id number] Mar, [facility] [place] [facility] [address] [id number] [place] [address]- 3221 18 Mar, 2014 [facility] [address] [id number] [place] [id number] Mar, [facility] [place] [facility] [address] [facility] [id number] [place] [address] Mar, [facility] [address] [id number] [place] [id number] Mar, [facility] [place] [facility] [address] [facility] [id number] [place] [address]- 5534 Mar, [facility] [address] [id number] [place] [id number] Mar, [facility] [place] [facility] [address] [facility] [id number] [place] [address]- 3924 Mar, [facility] [address] [facility] [id number] [place] [id number] Mar, [facility] [place] [facility] [address] [facility] [id number] [place] [address]- 0669 Mar, [facility] [address] [facility] [id number] [place] [id number] Feb, [facility] [place] [facility] [address] [facility] [id number] [place] [address]- 8090 Feb, [facility] [address] [id number] [place] [id number] Jan, [facility] [place] [facility] [address] [facility] [id number] [address]- 0406 Jan, [facility] [address] [id number] [place] [id number] Jan, [facility] [place] [facility] [address] [facility] [id number] [place] [address]- 2387 Jan, [facility] [address] [id number], [place] [id number] Jan, [facility] [place] [facility] [address] [facility] [id number] [place] 96902629- 0684 Jan, [facility] [place] [facility] [address] [id number] [place] [address]- 2546 Dec, [facility] [place] [facility] [address] [id number] [place] [address]- 2546 Dec, [facility] [address] [id number] [place] [id number] November, [facility] [place] [facility] [address] [id number] [place] [address]- 2546 November, [facility] [address] [id number] [place] [id number] November, [facility] [place] [facility] [address] [id number] [place] [address]- 2546 November, [facility] [address] [id number] [place] [id number] Oct, [facility] [place] [facility] [address] [id number] [place] [address]- 1256 Oct, [facility] [place] [facility] [address] [id number] [place] [address]- 7216 Oct, [facility] [place] [facility] [address] [id number] [place] [address]- 3246 Oct, [facility] [place] [facility] [address] [id number] [place] [address]- 2546 Oct, [facility] [place] [facility] [address] [id number] [place] [address]- 2546 Oct, [facility] [address] [id number] [place] 010149796 Sep, [facility] [address] [id number] [place] [id number] Sep, [facility] [place] [facility] [address] [id number] [place] [address]- 2546 Sep, [facility] [place] [facility] [address] [id number] [place] [address]- 2546 Sep, [facility] [address] [id number], [place] [id number] Sep, [facility] [place] [facility] [address]00565100[place] [address]- 7076 Sep, [facility] [place] [facility] [address] [id number] [address]- 5937 Aug, [facility] [place] [facility] [address]00565100[place] [address]- 6232 Aug, [facility] [address] [facility] [id number], [place] [id number] Aug, [facility] [address] [id number], [place] [id number] Aug, [facility] [place] [facility] [address]00565100[place] [address]- 6990 Aug, [facility] [id number], [place] [id number] Aug, [facility] [place] [facility] [address]00565100[place] [address]- 6544 Aug, [facility] [address] [id number], [place] [id number] Aug, [facility] [place] [facility] [address]00565100[place] [address]- 9202 Aug, [facility] [address] [id number], [place] [id number] Aug, [facility] [place] [facility] [address] [id number] [address]- 0838 Aug, [facility] [address] [facility] [id number], [place] [id number] Aug, [facility] [place] [facility] [address]00565100[place] [address]- 3777 Aug, [facility] [place] [facility] [address] [id number] [address]- 5448 Jul, [facility] [address] [id number], [place] [id number] Jun, [facility] [place] [facility] [address] [id number] [place] [address]- 3956 Jun, [facility] [place] [facility] [address] [id number] [place] [address]- 9326 Jun, [facility] [place] [facility] [address] [facility] [id number] [place] [address]- 6376 Jun, [facility] [address] [facility] [id number], [place] 024518752 Jun, [facility] [place] [facility] [address] [id number] [place] [address]- 3776 Jun, [facility] [place] [facility] [address] [facility] [id number] [place] [address]- 2546 Jun, [facility] [address] [facility] [id number], [place] 050552285 Jun, [facility] [place] [facility] [address] [facility] [id number] [address]- 6086 Jun, [facility] [place] [facility] [address] [facility] [id number] [place] [address]- 5941 May, [facility] [address] [facility] [id number], [place] [id number] May, [facility] [place] [facility] [address] [facility] [id number] [place] [address]- 0596 May, [facility] [place] [facility] [address] [facility] [id number] [place] [address]- 7756 May, [facility] [place] [facility] [address] [id number] [place] [address]- 4916 May, [facility] [place] [facility] [address] [facility] [id number] [place] [address]- 4216 May, [facility] [address] [facility] [id number], [place] [id number] May, [facility] [place] [facility] [address] [facility] [id number] [place] [address]- 3486 May, [facility] [address] [facility] [id number], [place] [id number] May, [facility] [place] [facility] [address] [facility] [id number] [place] [address]- 6366 May, [facility] [address] [facility] [id number], [place] [id number] Apr, [facility] [place] [facility] [address] [facility] [id number] [place] [address]- 2582 Apr, [facility] [place] [facility] [address] [facility] [id number] [address]- 7066 Apr, [facility] [address] [facility] [id number], [place] 342403829 Apr, [facility] [place] [facility] [address] [facility] [id number] [address]- 5946 Apr, [facility] [place] [facility] [address] [facility] [id number] [place] [address]- 9032 Apr, [facility] [address] [facility] [id number], [place] [id number] Apr, [facility] [place] [facility] [address] [facility] [id number] [place] 577[place]- 5611 Apr, [facility] [place] [facility] [address] [facility] [id number] [address]- 5680 Apr, [facility] [place] [facility] [address] [facility] [id number] [place] [address]- 3822 Apr, [facility] [address] [facility] [id number], [place] [id number] Apr, [facility] [place] [facility] [address] [facility] [id number] [place] [address]- 6706 Apr, [facility] [address] [facility] [id number], [place] [id number] Apr, [facility] [place] [facility] [address] [facility] [id number] [place] [address]- 8456 Apr, [facility] [address] [facility] [id number], [place] 036809563 Apr, [facility] [address] [facility] [id number] [place] [address]- 7570 Apr, [facility] [place] [facility] [address] [facility] [id number] [place] [address]- 9265 Apr, [facility] [address] [facility] [id number] [place] [address]- 0691 Apr, [facility] [address] [id number], [place] 194680248 Apr, [facility] [place] [facility] [address] [facility] [id number] [place] 19579716- 5054 Mar, [facility] [address] [facility] [id number] [place]- 7043 Mar, [facility] [address] [id number] [place] 560564355 Mar, [facility] [address] [id number], [place] 601348519 Mar, [facility] [address] [id number], [place] 537865052 Mar, [facility] [address] [id number] [place] 014164499 Feb, [facility] [address] [id number], [place] 035151451 Feb, [facility] [address] [id number], [place] [id number] Feb, [facility] [place] [facility] [address] [facility] [id number] [place] [address] 2546 Feb, [facility] [address] [id number] [place] 695955344 Feb, [facility] [address] [id number] [place] 881018990 Feb, [facility] [address] [id number], [place] 024512813 Feb, [facility] [address] [id number], [place] 221986136 Feb, [facility] [address] [id number] [place] 261008121 Feb, [facility] [place] [address] [id number] [place] 884503514 Jan, [facility] [place] [address] [id number] [place] 616164595 Jan, [facility] [place] [address] [id number] [place] 278984376 Jan, [facility] [place] [address] [id number] [place] 688972363 Jan, [facility] [place] [address] [id number] [place] 995646759 Jan, [facility] [address] [facility] [id number] [place] [address]- 9976 Jan, [facility] [place] [address] [id number] [place] 438451038 Jan, [facility] [place] [address] [id number] [place] 369817415 Jan, [facility] [place] [address] [id number] [place] 525304573 Dec, [facility] [place] [address] [id number] [place] 190017780 November, [facility] [place] [address] [id number] [place] [id number] November, [facility] [address] [id number] [place] [id number] November, [facility] [place] [address] [id number] [place] 123772472 November, [facility] [place] [address] [id number] [place] [id number] November, [facility] [place] [address] [id number] [place] 765488294 November, [facility] [place] [address] [id number] [place] 185537263 Jul, [facility] [address] [id number] [place] 403913980 Jul, [facility] [address] [id number], [place] 131730967 Jul, [facility] [address] [id number] [place] 534280893 Jun, [facility] [place] [facility] [address] [facility] [id number] [place] [address]- 1398 Jun, [facility] [address] [facility] [id number] [place] 696691265 May, [facility] [place] [facility] [address] [facility] [id number] [address]- 2548 May, [facility] [address] [facility] [id number], [place] 577878688 May, [facility] [place] [facility] [address] [facility] [id number] [place] [address]- 5815 May, [facility] [address] [facility] [id number], [place] [id number] May, [facility] [place] [facility] [address]00565100[place] [address]- 8240 May, [facility] [address] [facility] [id number], [place] 134560865 Apr, [facility] [place] [facility] [address]00565100[place] [address]- 5172 Apr, [facility] [place] [facility] [address] [facility] [id number] [place] [address]- 8212 18 Apr, 2012 [facility] [address] [id number], [place] 618050314 Apr, [facility] [address] [facility] [id number], [place] 970454608 Apr, [facility] [place] [facility] [address] [facility] [id number] [place] 781044- 8991 Apr, [facility] [place] [facility] [address] [facility] [id number] [place] [address]- 1835 Apr, [facility] [address] [facility] [id number], [place] [id number] Apr, [facility] [place] [facility] [address] [facility] [id number] [place] [address]- 2546 Apr, [facility] [place] [address] [id number] [place] [id number] Apr, [facility] [place] [address] [id number] [place] [id number] Apr, [facility] [place] [address] [id number] [place] 854483557 Mar, [facility] [place] [address] [id number] [place] 903591511 Feb, [facility] [place] [address] [id number] [place] [id number] Jan, [facility] [address] [id number] [place] 994543664 Dec, [facility] [address] [id number] [place] 105062729 Dec, [facility] [place] [address] [id number] [place] 856956242 Dec, [facility] [place] [address] [id number] [place] 975127186 Dec, [facility] [address] [id number] [place] 281467698 Dec, [facility] [place] [address] [id number] [place] [id number] November, [facility] [place] [address] [id number] [place] 258824174 November, [facility] [place] [address] [id number] [place] 895587263 November, [facility] [address] [facility] [id number] [address]- 8586 November, [facility] [place] [address] [id number] [place] 103868689 November, [facility] [place] [address] [id number] [place] 024096990 November, [facility] [place] [address] [id number] [place] 912163298 Oct, [facility] [place] [address] [id number] [place] 389979012 Oct, [facility] [place] [address] [id number] [place] [id number] Oct, [facility] [place] [address] [id number] [place] [id number] Oct, [facility] [place] [address] [id number] [place] [id number] Oct, [facility] [place] [address] [id number] [place] [id number] Oct, [facility] [place] [address] [id number] [place] [id number] Sep, [facility] [place] [address] [id number] [place] [id number] Aug, [facility] [place] [address] [id number] [place] [id number] Aug, [facility] [place] [address] [id number] [place] [id number] Jul, [facility] [place] [facility] [id number] [address] Jun, [facility] [place] [facility] [id number] [place] [address] Jun, [facility] [place] [facility] [id number] [place] [address]- [address] Jun, [facility] [place] [facility] [id number] [address] Jun, [facility] [place] [facility] [address] [address] May, [facility] [place] [facility] [address] [id number] [address] May, [facility] [place] [facility] [id number] [place] [address] Apr, [facility] [place] [facility] [address] [address] Apr, [facility] [place] [facility] [address] [id number] [address] 10 Apr, 2011 [facility] [address] [id number] [place] [address] Feb, [facility] [place] [facility] [address] [id number] [place] [address] 15 Aug, 2010 [facility] [place] [facility] [address] [id number] [place] [address] Jul, [facility] [place] [facility] [address] [id number] [place] [address] 30 Jun, 2010 [facility] [place] [facility] [address] [id number] [place] [address] May, [facility] [place] [facility] [address] [id number] [place] [address] May, [facility] [place] [facility] [address] [id number] [place] [address] May, [facility] [place] [facility] [address] [id number] [place] [address] May, [facility] [place] [facility] [address] [id number] [place] [address] May, [facility] [place] [facility] [address] [facility] [id number] [place] [address] 16 Aug, 2009 [facility] [place] [facility] [address] [id number] [place] [address] Jun, [facility] [place] [facility] [address] [id number] [place] [address] Jun, [facility] [place] [facility] [address] [id number] [place] [address] Jun, [facility] [place] [facility] [address] [id number] [place] [address] 24 May, 2009 [facility] [place] [facility] [address] [id number] [place] [address] Apr, [facility] [address] [facility] [id number] [address] Apr, [facility] [address] [id number] [address] Apr, [facility] [address] [id number] [address] Jan, [facility] [address] [address] Oct, [facility] [address] [id number] [address] May, [facility] [address] [address] May, IMMUNIZATIONS No Known Immunizations SOCIAL HISTORY [...] D[facility] 2012 -Dr. Simon now [facility] Medical History Colonoscopy (polyps 2 ) [...]
--- OUTSIDE RECORDS SUMMARY | 2017-12-22 19:57 | XMS REPORT ---
Author Author CHELSY VILLAFANA Organization [facility] Address [address] [place] [address] Care Team Providers Care Donor Services Coordinator Name Role Phone CHELSY VILLAFANA Unavailable PROBLEMS Type Condition ICD9-CM Code ZXD24-QH Code Onset Dates Condition Status SNOMED Code Problem Chronic pain syndrome G89.4 Active 873815612 Problem Type 2 diabetes mellitus with hyperglycemia E11.65 Active 735080501166361 Problem Primary insomnia F51.01 Active 7811736 Problem Bilateral lower extremity edema R60.0 Active 916245361 Problem Anemia in other chronic diseases classified elsewhere D63.8 Active 266737404 Problem Supplemental oxygen dependent Z99.81 Active 738115505632 Problem Right carpal tunnel syndrome G56.01 Active 999104153315100 Problem 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 Active 960925424136450 Problem Paresthesia of right upper extremity R20.2 Active 61267093 Problem Chronic kidney disease, stage 4 (severe) N18.4 Active 080202685 Problem termination clerk 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 Active 273342192 Problem Psoriasis of scalp L40.9 Active 233292976 Problem Gastroesophageal reflux disease without esophagitis K21.9 Active 857938720 Problem Chronic obstructive pulmonary disease, unspecified COPD type J44.9 Active 81326318 Problem Type 2 diabetes mellitus with other diabetic kidney complication E11.29 Active 753455819 Problem Diabetic polyneuropathy associated with type 2 diabetes mellitus E11.42 Active 78145971 Problem History of DVT (deep vein thrombosis) Z86.718 Active 666684537 Problem senior care current use of anticoagulant Z79.01 Active 741872183 Problem Oxygen desaturation during sleep G47.34 Active 044495736 Problem Essential hypertension I10 Active 35847787 Problem Depression, unspecified depression type F32.9 Active 47566310 Problem Sleep apnea in adult G47.33 Active 93889036 ALLERGIES No Information ENCOUNTERS Encounter Location Date Diagnosis [facility] [address] [id number] [id number] Oct, Bilateral lower extremity edema R60.0 [address] [address] Oct, [address] [address] Sep, Type 2 diabetes mellitus with other diabetic kidney complication E11.29 and Chronic obstructive pulmonary disease, unspecified COPD type J44.9 [address] [address] [address] 15 Aug, 2017 Type 2 diabetes mellitus with other diabetic kidney complication E11.29 [address] [address] [address] [place] [address] 15985- 2964 12 Aug, 2017 Gastroesophageal reflux disease without esophagitis K21.9 ; senior care current use of anticoagulant Z79.01 ; Chronic pain syndrome G89.4 ; Essential hypertension I10 and Type 2 diabetes mellitus with other diabetic kidney complication E11.29 [address] [address] [address] 08 Aug, 2017 Chronic pain syndrome G89.4 [address] [address] [address] Aug, Type 2 diabetes mellitus with other diabetic kidney complication E11.29 [address] [address] [address] Jul, Diabetic polyneuropathy associated with type 2 diabetes mellitus E11.42 [address] [id number] [address] Jul, Primary insomnia F51.01 [address] [address] [address] [place] [address] 38253- 6627 Jul, [address] [address] [address] [address] Jul, Type 2 diabetes mellitus with other diabetic kidney complication E11.29 and Chronic obstructive pulmonary disease, unspecified COPD type J44.9 [address] [address] [address] [address] 0683 Jul, Type 2 diabetes mellitus with other diabetic kidney complication E11.29 [address] [address] [place] [address] 84102- 2974 Jun, Type 2 diabetes mellitus with other diabetic kidney complication E11.29 [address] [id number] [place] [address] 36344- 8506 Jun, [address] [id number] [place] [address] 95751- 1716 Jun, Chronic obstructive pulmonary disease, unspecified COPD type J44.9 [id number] [place] [address] 07524- 2815 May, Type 2 diabetes mellitus with other diabetic kidney complication E11.29 [id number] [place] [address] 75411- 3427 May, termination clerk current use of anticoagulant Z79.01 and Essential hypertension I10 [id number] [place] [address] 58303- 7041 May, Anemia in other chronic diseases classified elsewhere D63.8 ; Chronic obstructive pulmonary disease, unspecified COPD type J44.9 ; Oxygen desaturation during sleep G47.34 ; Sleep apnea in adult G47.33 and Supplemental oxygen dependent Z99.[address] [place] [address] 47661- 5179 May, Type 2 diabetes mellitus with other diabetic kidney complication E11.29 ; Essential hypertension I10 ; Chronic pain syndrome G89.4 ; BMI 40.0-44.9, adult Z68.41 ; Gastroesophageal reflux disease without esophagitis K21.9 ; termination clerk current use of anticoagulant Z79.01 ; termination clerk 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 ; Diabetic polyneuropathy associated with type 2 diabetes mellitus E11.42 ; Edema of both legs R60.0 and Supplemental oxygen dependent Z99.[address] [place] [address] 87801- 9162 May, [facility] [id number] [place] [address] 27384- 9923 May, Essential hypertension I10 and Gastroesophageal reflux disease without esophagitis K21.9 [facility] [id number] [place] [address] 28774- 6255 May, [facility] [address] [address]056- 6588 May, Type 2 diabetes mellitus with other diabetic kidney complication E11.29 and senior care current use of anticoagulant Z79.01 [address] [id number] [place] [address] 20825- 3983 Apr, Chronic pain syndrome G89.4 and Essential hypertension I10 [address] [address] [address] 66609- 4804 Apr, Type 2 diabetes mellitus with other diabetic kidney complication E11.29 [facility] [id number] [place] [address] 43459- 7229 Apr, Type 2 diabetes mellitus with other diabetic kidney complication E11.29 [facility] [id number] [place] [address] 55318- 4620 Apr, Essential hypertension I10 [facility] [id number] [place] [address] 36323- 7983 Apr, Gastroesophageal reflux disease without esophagitis K21.9 [facility] [id number] [place] [address] 74881- 8527 Apr, Type 2 diabetes mellitus with other diabetic kidney complication E11.29 [facility] [id number] [place] [address] 38445- 7580 Apr, Type 2 diabetes mellitus with other diabetic kidney complication E11.29 and termination clerk current use of anticoagulant Z79.01 [facility] [id number] [place] [address] 05799- 5441 Mar, Encounter for immunization Z23 and Preoperative examination Z01.818 [address] [place] [address] 70651- 5977 Mar, [address] [id number] [place] [address] 24461- 8529 Mar, Type 2 diabetes mellitus with other diabetic kidney complication E11.29 [address] [id number] [place] [address] 76316- 3564 08 Mar, 2017 Type 2 diabetes mellitus with other diabetic kidney complication E11.29 [address] [id number] [place] [address] 99764- 7501 Mar, Gastroesophageal reflux disease without esophagitis K21.9 [address] [id number] [place] [address] 61985- 6898 Mar, Essential hypertension I10 [address] [id number] [place] [address] 40990- 7728 Feb, senior care current use of anticoagulant Z79.01 [address] [id number] [place] [address] 59271- 7146 Feb, Type 2 diabetes mellitus with other diabetic kidney complication E11.29 [address] [id number] [place] [address] 07922- 6537 Feb, Type 2 diabetes mellitus with other diabetic kidney complication E11.29 [address] [id number] [place] [address] 86373- 8780 Feb, Type 2 diabetes mellitus with other diabetic kidney complication E11.29 [address] [id number] [place] [address] 77898- 1262 Feb, Gastroesophageal reflux disease without esophagitis K21.9 [facility] [id number] [place] [address] 02301- 0046 Feb, Type 2 diabetes mellitus with other diabetic kidney complication E11.29 [address] [id number] [place] [address] 80244- 4753 Feb, termination clerk current use of anticoagulant Z79.01 [address] [address] 2504 Jan, 2017 Type 2 diabetes mellitus with other diabetic kidney complication E11.29 [facility] [address] [address] 2546 Jan, Type 2 diabetes mellitus with other diabetic kidney complication E11.29 [facility] [address] [address]- 2743 Jan, Chronic pain syndrome G89.4 [facility] [address] [address] 2540 Jan, [facility] [address] [place] [address] 19342- 8404 Jan, [facility] [address] [place] [address] 61013- 9665 Jan, [facility] [address] [address] Jan, [facility] [address] [address]- 9740 Jan, Primary insomnia F51.01 ; Type 2 diabetes mellitus with other diabetic kidney complication E11.29 ; Chronic pain syndrome G89.4 and Essential hypertension I10 [facility] [address] [address]- 9072 Jan, Primary insomnia F51.01 [facility] [address] [address]- 7926 Jan, Type 2 diabetes mellitus with other diabetic kidney complication E11.29 [facility] [address] [address]- 3631 Jan, [facility] [address] [address] 7810 Jan, Chronic obstructive pulmonary disease, unspecified COPD type J44.9 [facility] [address] [address]- 7439 Jan, Essential hypertension I10 ; Type 2 [...] associated with type 2 diabetes mellitus E11.42 [facility] [id number] [place] [address] 02678- 0426 Jan, Gastroesophageal reflux disease without esophagitis K21.9 [facility] [id number] [place] [address] 96392- 2464 Dec, [facility] [id number] [place] [address] 93186- 1035 Dec, [facility] [id number] [place] [address] 65570- 9263 Dec, senior care current use of anticoagulant Z79.01 ; Chronic pain syndrome G89.4 and Essential hypertension I10 [facility] [id number] [place] [address] 83996- 0813 Dec, [facility] [id number] [place] [address] 57438- 0388 Dec, Type 2 diabetes mellitus with other diabetic kidney complication E11.29 [facility] [id number] [place] [address] 34946- 2779 Dec, [facility] [id number] [place] [address] 61036- 1458 Dec, Gastroesophageal reflux disease without esophagitis K21.9 [facility] [id number] [place] [address] 96074- 7575 November, Type 2 diabetes mellitus with other diabetic kidney complication E11.29 [facility] [id number] [place] [address] 27777- 9069 November, [facility] [address] [place] [address]- 2274 November, Type 2 diabetes mellitus with other diabetic kidney complication E11.29 [facility] [address] [address]- 4920 November, [facility] [address] [address]- 4226 November, Type 2 diabetes mellitus with other diabetic kidney complication E11.29 [facility] [address] [address]- 7414 November, [facility] [address] [place] [address] 43480- 7534 Oct, Essential hypertension I10 [facility] [id number] [place] [address] 18073- 8638 Oct, Psoriasis of scalp L40.9 [facility] [id number] [place] [address] 59150- 2922 Oct, Essential hypertension I10 and Chronic pain syndrome G89.4 [facility] [address] [address]- 1183 Oct, [facility] [address] [address]- 5861 Sep, Type 2 diabetes mellitus with other diabetic kidney complication E11.29 [facility] [address] [address]- 2941 Sep, [facility] [address] [address]- 6287 Sep, Type 2 diabetes mellitus with other diabetic kidney complication E11.29 [facility] [address] [address]- 3391 Sep, Type 2 diabetes mellitus with other diabetic kidney complication E11.29 [facility] [address] [address]- 9549 Sep, Type 2 diabetes mellitus with other diabetic kidney complication E11.29 ; Chronic kidney disease, stage 4 (severe) N18.4 ; Chronic obstructive pulmonary disease, unspecified COPD type J44.9 ; Iron deficiency anemia due to chronic blood loss D50.0 ; termination clerk current use of anticoagulant Z79.01 ; Gastroesophageal reflux disease without esophagitis K21.9 ; Essential hypertension I10 ; Primary insomnia F51.01 ; Depression, unspecified depression type F32.9 ; Chronic pain syndrome G89.4 ; Wrist pain, right M25.531 ; Paresthesia of right upper extremity R20.2 and Psoriasis of scalp L40.9 [address] 47814- 6694 Sep, [address] 80755- 1595 Aug, Essential hypertension I10 [address] 20205- 0465 Aug, History of DVT (deep vein thrombosis) Z86.718 [address] 98523- 4087 Aug, [address] [address] 69498- 3899 Jul, [address] [place] 15951- 0720 Jul, [address] [id number] [place] [address] 30557- 2488 Jul, termination clerk current use of anticoagulant Z79.01 ; Chronic pain syndrome G89.4 and Chronic kidney disease, stage 4 (severe) N18.4 [address] 84200- 9625 Jul, [address] 72675- 1569 Jul, [address] [place] 35317- 2405 Jul, [address] [id number] [address]- 8070 Jul, [address] [place] [address] 70396- 0439 Jul, [id number] [place] [address] 21525- 1523 Jul, Type 2 diabetes mellitus with other diabetic kidney complication E11.29 [id number] [place] [address] 13937- 7223 16 Jul, 2016 History of DVT (deep vein thrombosis) Z86.718 [id number] [place] [address] 75350- 1636 Jun, [id number] [place] [address] 28602- 7179 Jun, History of DVT (deep vein thrombosis) Z86.718 [address] [place] [address] 27569- 7119 15 Jun, 2016 Post traumatic stress disorder (PTSD) F43.[address] [place] [address] 03035- 1103 07 Jun, 2016 Type 2 diabetes mellitus with other diabetic kidney complication E11.29 ; Diabetic polyneuropathy associated with type 2 diabetes mellitus E11.42 ; Iron deficiency anemia due to chronic blood loss D50.0 ; Chronic obstructive pulmonary disease, unspecified COPD type J44.9 ; termination clerk current use of anticoagulant Z79.01 ; [...] pain M79.641 and Right wrist pain M25.531 [id number] [address]- 9060 May, [facility] [address] [place] [address]- 7433 May, [facility] [id number] [place] [address]- 9336 May, [facility] [id number] [place] [address], [place] [address]- 2658 15 May, 2016 [facility] [id number] [place] [address]- 9757 May, Anemia in other chronic diseases classified elsewhere D63.8 [facility] [address] [place] [address], [place] [address]- 3733 May, [facility] [address] [place] [address]- 4920 Apr, [facility] [address] [place] [address] 67885- 0139 27 Mar, 2016 Dermatofibroma D23.9 [facility] [address] [place] [address], [place] [address]- 2238 20 Mar, 2016 [facility] [address] [place] [address]- 7303 14 Mar, 2016 Chronic pain syndrome G89.4 [facility] [address] [place] [address] 2542 09 Mar, 2015 [facility] [address] [address]- 2544 07 Mar, 2015 [facility] [address] [place] [address]- 8049 06 Mar, 2016 [facility] [address] [place] [address]- 2543 Feb, [facility] [address] [address]- 5931 Feb, [facility] [address] [address]- 0799 Feb, [address] [address]- 4469 Feb, [facility] [address] [address]- 4418 Feb, [address] [place] [address] 76085- 4508 Feb, [address] [address] [address]- 4467 Feb, Type 2 diabetes mellitus with other diabetic kidney complication E11.29 ; Diabetic polyneuropathy associated with type 2 diabetes mellitus E11.42 ; Iron deficiency anemia due to chronic blood loss D50.0 ; Chronic obstructive pulmonary disease, unspecified COPD type J44.9 ; termination clerk current use of anticoagulant Z79.01 ; History of DVT (deep vein thrombosis) Z86.718 ; Chronic pain syndrome G89.4 ; Oxygen desaturation during sleep G47.34 ; Sleep apnea in adult G47.33 ; Gastroesophageal reflux disease without esophagitis K21.9 ; Essential hypertension I10 ; Primary insomnia F51.01 ; Depression, unspecified depression type F32.9 and Renal failure, chronic, stage 4 (severe) N18.4 [address] [address] [address]- 6849 Feb, Skin tags, multiple acquired L91.8 [place] [address] [address]- 8692 Jan, [facility] [address] [id number] Jan, Dental examination Z01.20 [address] [address] [address]- 4920 Jan, [address] [address] [address]- 3104 Jan, Type 2 diabetes mellitus with other diabetic kidney complication E11.29 ; Diabetic polyneuropathy associated with type 2 diabetes mellitus E11.42 ; Iron deficiency anemia due to chronic blood loss D50.0 ; Chronic obstructive pulmonary disease, unspecified COPD type J44.9 ; termination clerk current use of anticoagulant Z79.01 ; [...] Renal failure, chronic, stage 4 (severe) N18.4 [facility] [id number] [place] [address] 62261- 9907 Dec, Diabetes type 2, uncontrolled E11.65 [address] [id number] [place] [address] 08811- 0068 Dec, [address] 87903- 7190 Dec, Type 2 diabetes mellitus with other [...] and Depression, unspecified depression type F32.9 [facility] [address] [id number] [address] Dec, Dental caries K02.9 [facility] [address] [id number] [address] Dec, [facility] [address] [place] [address] [id number] Dec, Dental examination Z01.20 [facility] [id number] [address] November, Dental examination Z01.20 and Dental caries K02.9 [facility] [address] [id number] [id number] Oct, [facility] [address] [id number] [id number] Oct, [facility] [address] [id number] [id number] Sep, [facility] [id number] [place] [address] [id number] Sep, [facility] [id number] [place] [id number] Sep, [facility] [id number] [place] [address] [id number] Sep, Other chronic pain 338.29 [facility] [id number] [place] [address] [id number] Aug, Diabetes type 2, uncontrolled E11.65 and Morbid obesity due to excess calories E66.01 [facility] [id number] [id number] Aug, Hair loss L65.9 [facility] [id number] [place] [address] [id number] Aug, [facility] [id number] [id number] Jul, [facility] [id number] [place] [address] [id number] Jul, [facility] [id number][place] [id number] Jun, [facility] [id number][place] [id number] Jun, Hair loss L65.9 and Disorder of the skin and subcutaneous tissue, unspecified L98.9 [facility] [id number][place] [id number] May, Type 2 diabetes mellitus with other diabetic kidney complication E11.29 ; Type 2 diabetes mellitus with hyperglycemia E11.65 ; Morbid obesity due to excess calories E66.01 and Essential hypertension I10 [address] [place] [address] [id number] May, Diabetes type 2, uncontrolled E11.65 ; Encounter for immunization Z23 and Morbid obesity due to excess calories E66.01 [facility] [id number] [place] [address] [id number] May, 2015 [facility] [address] 17341- 1452 Apr, [id number] [place] [address] [id number] Apr, Hyperglycemia R73.[address] [id number] Apr, [address] [id number] Apr, Depression F32.9 ; Encounter for immunization Z23 ; Hyperglycemia R73.9 and Anemia in other chronic diseases classified elsewhere D63.8 [facility] [id number] [place] [address] [id number] Mar, [id number] [place] [address] [id number] Feb, Positive occult stool blood test 792.1 [id number] [place] [address] [id number] Feb, Depression 311 ; Other chronic pain 338.29 and Diabetes with renal manifestations, type II or unspecified type, not stated as uncontrolled 250.40 [facility] [id number] [place] [address] 74751- 4661 Feb, Occult blood in stools 792.1 [id number] [place] [address] [id number] Feb, Anemia 285.9 ; Occult blood positive stool 792.1 ; Unspecified essential hypertension 401.9 and Other chronic pain 338.29 [id number] [place] [address] [id number] Feb, [id number] [place] [address] [id number] Feb, Anemia 285.9 [facility] [place] [id number], [place] [id number] Feb, [facility] [place] [id number] [place] [address] [id number] Feb, [facility] [place] [id number], [place] [id number] Feb, Diabetes with renal manifestations, type II or unspecified type, not stated as uncontrolled 250.40 ; Other chronic pain 338.29 ; Unspecified essential hypertension 401.9 ; Anemia 285.9 and Depression 311 [facility] [place] [id number], [place] [id number] Jan, [facility] [place] [id number] [place] [address] [id number] Jan, Anemia 285.9 and Follow up V67.9 [facility] [place] [id number], [place] [id number] Jan, [facility] [place] [id number] [place] [address] [id number] Jan, [facility] [place] [id number], [place] [id number] Jan, [facility] [place] [id number] [place] [address] [id number] Dec, [facility] [id number] [place] [address] 62814- 2546 Oct, [facility] [id number] [place] [address] 43261- 0735 Oct, [facility] [id number] [place] [address] 76675 2546 Sep, [facility] [place] [id number][place] [id number] Sep, [facility] [id number] [place] [address] 43747- 6192 Sep, [facility] [id number], [place] [id number] Aug, [facility] [address] [id number] [place] [address]- 9466 Aug, 2014 [facility] [place] [facility] [address] [facility] [id number] [place] [address]- 3451 Aug, [facility] [place] [address] [facility] [id number], [place] [id number] Aug, [facility] [place] [facility] [id number] [place] [address]- 1342 Aug, [facility] [place] [facility] [address] [facility] [id number] [place] [address]- 7789 Aug, [facility] [place] [address] [facility] [id number] [place] [id number] Aug, [facility] [place] [facility] [address] [id number] [place] [address]- 6430 Aug, [facility] [place] [id number], [place] [id number] Jul, [facility] [place] [facility] [address] [id number] [place] [address]- 2264 Jul, [facility] [place] [facility] [id number] [address]- 9166 Jul, [facility] [place] [address] [facility] [id number], [place] [id number] Jul, [facility] [place] [facility] [id number] [address]- 8720 Jul, [facility] [place] [address] [facility] [id number], [place] [id number] Jul, [facility] [place] [facility] [address] [facility] [id number] [place] [address]- 9640 Jul, [facility] [place] [address] [id number], [place] [id number] Jun, [facility] [place] [address] [facility] [id number], [place] [id number] Jun, [facility] [place] [facility] [address] [id number] [place] [address]- 9976 Jun, [facility] [place] [facility] [address] [facility] [id number] [place] [address]- 4893 Jun, [facility] [place] [address] [facility] [id number] [place] [id number] Jun, [facility] [place] [facility] [address] [facility] [id number] [place] [address]- 3786 Jun, [facility] [place] [address] [facility] [id number], [place] [id number] May, [facility] [place] [facility] [address] [facility] [id number] [place] [address]- 4086 May, [facility] [place] [facility] [address] [facility] [id number] [place] [address]- 9179 May, [facility] [place] [address] [facility] [id number], [place] [id number] Apr, [facility] [place] [facility] [address] [facility] [id number] [place] [address]- 0011 Apr, [facility] [place] [address] [facility] [id number], [place] 029441319 Apr, [facility] [place] [address] [facility] [id number], [place] [id number] Apr, [facility] [place] [facility] [address] [facility] [id number] [place] [address]- 7211 Apr, [facility] [place] [facility] [address] [facility] [id number] [place] [address]- 8890 Apr, [facility] [place] [address] [facility] [id number], [place] [id number] Mar, [facility] [place] [facility] [address] [facility] [id number] [place] [address]- 4584 Mar, [facility] [place] [address] [facility] [id number], [place] [id number] Mar, [facility] [place] [facility] [address] [facility] [id number] [place] [address]- 0308 17 Mar, 2014 [facility] [place] [address] [facility] [id number], [place] [id number] Mar, [facility] [place] [facility] [address] [id number] [place] [address]- 0781 Mar, [facility] [place] [address] [id number] [place] [id number] Mar, [facility] [place] [facility] [address] [facility] [id number] [place] [address]- 8396 Mar, [facility] [place] [address] [id number] [place] [id number] Mar, [facility] [place] [facility] [address] [id number] [place] [address]- 0313 Mar, [facility] [place] [address] [id number] [place] [id number] Feb, [facility] [place] [facility] [address] [facility] [id number] [place] [address]- 2836 Feb, [facility] [place] [address] [facility] [id number] [place] [id number] Jan, [facility] [place] [facility] [address] [facility] [id number] [place] [address]- 5185 Jan, [facility] [place] [address] [facility] [id number], [place] [id number] Jan, [facility] [place] [facility] [address] [facility] [id number] [place] [address]- 5042 Jan, [facility] [place] [address] [id number] [place] [id number] Jan, [facility] [place] [facility] [address] [facility] [id number] [place] [address]- 0172 Jan, [facility] [place] [facility] [address] [facility] [id number] [place] [address]- 1803 Dec, [facility] [place] [facility] [address] [facility] [id number] [place] [address]- 7836 Dec, [facility] [place] [address] [facility] [id number] [place] [id number] November, [facility] [place] [facility] [address] [facility] [id number] [place] [address]- 6047 November, [facility] [place] [address] [facility] [id number] [place] [id number] November, [facility] [place] [facility] [address] [id number] [place] [address]- 7110 November, [facility] [place] [address] [facility] [id number] [place] [id number] Oct, [facility] [place] [facility] [address] [facility] [id number] [place] [address]- 5968 Oct, [facility] [place] [facility] [address] [facility] [id number] [place] [address]- 0197 Oct, [facility] [place] [facility] [address] [facility] [id number] [place] [address]- 5285 Oct, [facility] [place] [facility] [address] [id number] [place] [address]- 8800 Oct, [facility] [place] [facility] [address] [id number] [place] [address]- 9687 Oct, [facility] [place] [address] [facility] [id number] [place] [id number] Sep, [facility] [place] [address] [facility] [id number] [place] [id number] Sep, [facility] [place] [facility] [address] [facility] [id number] [place] [address]- 4287 Sep, [facility] [place] [facility] [address] [facility] [id number] [place] [address]- 0259 Sep, [facility] [place] [address] [facility] [id number], [place] [id number] Sep, [facility] [place] [facility] [address] [facility] [id number] [place] [address]- 0888 Sep, [facility] [place] [facility] [address] [facility] [id number] [place] 83530524- 3962 Aug, [facility] [place] [facility] [address] [id number] [place] [address]- 8812 Aug, [facility] [place] [address] [id number] [place] [id number] Aug, [facility] [place] [address] [facility] [id number] [place] [id number] Aug, [facility] [place] [facility] [address] [facility] [id number] [place] [address]- 2546 Aug, [facility] [place] [address] [facility] [id number] [place] [id number] Aug, [facility] [place] [facility] [address] [facility] [id number] [place] [address]- 6336 Aug, [facility] [place] [address] [facility] [id number] [place] [id number] Aug, [facility] [place] [facility] [id number] [address]- 0446 Aug, [facility] [place] [id number] [place] [id number] Aug, [facility] [place] [facility] [id number] [address]- 3277 Aug, [facility] [place] [address] [facility] [id number] [place] [id number] Aug, [facility] [place] [facility] [address]00565100[place] [address]- 1056 Aug, [facility] [place] [facility] [address] [id number] [address]- 9553 Jul, [facility] [place] [address] [facility] [id number], [place] [id number] Jun, [facility] [place] [facility] [address] [facility] [id number] [place] [address]- 6444 Jun, [facility] [place] [facility] [address] [facility] [id number] [place] [address]- 6806 Jun, [facility] [place] [facility] [address] [id number] [address]- 3632 Jun, [facility] [place] [address] [facility] [id number], [place] 736723217 Jun, [facility] [address] [facility] [id number] [place] [address]- 4746 Jun, [facility] [place] [facility] [address] [facility] [id number] [place] [address] 2546 Jun, [facility] [place] [address] [facility] [id number], [place] 638000398 Jun, [facility] [place] [facility] [address] [facility] [id number] [place] [address]- 4106 Jun, [facility] [place] [facility] [address] [facility] [id number] [place] [address]- 3981 May, [facility] [place] [address] [facility] [id number], [place] 580549987 May, [facility] [place] [facility] [id number] [address]- 1436 May, [facility] [place] [facility] [address] [id number] [address]- 4266 May, [facility] [place] [facility] [address] [id number] [address]- 8528 May, [facility] [place] [facility] [address] [id number] [address]- 7661 May, [facility] [place] [address] [facility] [id number], [place] [id number] May, [facility] [place] [facility] [address] [facility] [id number] [place] [address]- 6426 May, [facility] [place] [address] [facility] [id number], [place] [id number] May, [facility] [place] [facility] [address] [facility] [id number] [place] [address]- 2546 May, [facility] [place] [address] [facility] [id number], [place] 900545533 Apr, [facility] [place] [facility] [address] [id number] [address]- 5426 Apr, [facility] [address] [id number] [place] [address]- 8478 Apr, [facility] [place] [address] [facility] [id number], [place] 346716086 Apr, [facility] [place] [facility] [address] [id number] [place] [address]- 1606 Apr, [facility] [place] [facility] [address] [id number] [place] [address]- 1463 Apr, [facility] [place] [address] [facility] [id number], [place] 437128791 Apr, [facility] [place] [facility] [address] [id number] [place] [address]- 7200 Apr, [facility] [place] [facility] [address] [facility] [id number] [place] 919389- 3679 Apr, [facility] [place] [facility] [address] [facility] [id number] [place] 657922- 2018 Apr, [facility] [place] [address] [facility] [id number], [place] 795765298 Apr, [facility] [place] [facility] [address] [id number] [place] [address]- 1801 Apr, [facility] [place] [address] [facility] [id number], [place] 020144990 Apr, [facility] [place] [facility] [address] [facility] [id number] [place] [address]- 4653 Apr, [facility] [place] [address] [facility] [id number], [place] 998661631 Apr, [facility] [place] [facility] [address] [facility] [id number] [place] [address]- 2372 Apr, [facility] [place] [facility] [address] [facility] [id number] [place] [address]- 0937 Apr, [facility] [place] [facility] [address] [id number] [place] [address]- 0766 Apr, [facility] [place] [address] [id number] [place] 169652348 Apr, [facility] [address] [facility] [id number] [place] [address]- 8251 Mar, [facility] [address] [facility] [id number] [place] [address]- 1131 Mar, [facility] [place] [address] [id number] [place] [id number] Mar, [facility] [place] [address] [id number] [place] 692058901 Mar, [facility] [place] [address] [id number] [place] [id number] Mar, [facility] [place] [address] [id number] [place] 854736030 Feb, [facility] [place] [address] [id number] [place] 934579928 Feb, [facility] [place] [address] [id number] [place] 132974718 Feb, [facility] [address] [facility] [id number] [place] [address]- 7142 Feb, [facility] [place] [address] [id number] [place] [id number] Feb, [facility] [place] [address] [id number] [place] 357235720 Feb, [facility] [place] [address] [id number] [place] 864359358 Feb, [facility] [place] [address] [id number] [place] [id number] Feb, [facility] [place] [address] [id number] [place] 291556318 Feb, [facility] [place] [address] [id number] [place] 769398663 Jan, [facility] [place] [address] [id number] [place] 101557613 Jan, [facility] [place] [address] [id number] [place] 594809986 Jan, [facility] [place] [address] [id number] [place] 394387847 Jan, [facility] [place] [address] [id number] [place] 412620423 Jan, [facility] [address] [facility] [id number] [place] [address]- 7526 Jan, [facility] [place] [address] [id number] [place] 323951321 Jan, [facility] [place] [address] [id number] [place] [id number] Jan, [facility] [place] [address] [id number] [place] 960769360 Dec, [facility] [place] [address] [id number] [place] 749381094 November, [facility] [place] [address] [id number] [place] 372072272 November, [facility] [address] [id number] [place] 394350139 November, [facility] [place] [address] [id number] [place] 863091628 November, [facility] [place] [address] [id number] [place] 929470721 November, [facility] [place] [address] [id number] [place] 486343378 November, [facility] [place] [address] [id number] [place] 335915992 Jul, [facility] [place] [address] [id number] [place] 569947119 Jul, [facility] [place] [address] [id number] [place] [id number] Jul, [facility] [place] [address] [id number] [place] 154616248 Jun, [facility] [address]00565100[place] [address]- 5116 Jun, [facility] [place] [address] [id number], [place] [id number] May, [facility] [address]00565100[place] [address]- 4850 May, [facility] [place] [address] [id number], [place] 550056818 May, [facility] [place] [facility] [address] [facility] [id number] [address]- 8009 May, [facility] [place] [address] [id number], [place] 135643424 May, [facility] [place] [facility] [address] [facility] [id number] [place] [address]- 5009 May, [facility] [place] [address] [id number], [place] [id number] Apr, [facility] [place] [facility] [address] [facility] [id number] [place] [address] 44351- 7942 Apr, [facility] [place] [facility] [address] [id number] [address]- 1065 Apr, [facility] [place] [address] [id number], [place] 936149136 Apr, [facility] [place] [address] [id number], [place] 079336724 Apr, [facility] [place] [facility] [address] [facility] [id number] [place] [address]- 6276 Apr, [facility] [place] [facility] [address] [facility] [id number] [place] [address]- 1432 Apr, [facility] [place] [address] [id number], [place] 529702073 Apr, [facility] [place] [facility] [address] [facility] [id number] [place] [address]- 7705 Apr, [facility] [place] [address] [id number], [place] 066361208 Apr, [facility] [place] [address] [id number], [place] 292381027 Apr, [facility] [place] [address] [id number], [place] 669063438 Mar, [facility] [place] [address] [id number] [place] [id number] Feb, [facility] [place] [address] [id number] [place] 564179996 Jan, [facility] [place] [address] [id number] [place] 833461863 Dec, [facility] [place] [address] [id number] [place] [id number] Dec, [facility] [place] [address] [id number] [place] 925621691 Dec, [facility] [place] [address] [id number] [place] 838486545 Dec, [facility] [place] [address] [id number] [place] 059208067 Dec, [facility] [place] [address] [id number] [place] 478705332 November, [facility] [place] [address] [id number] [place] 414577249 November, [facility] [place] [address] [id number] [place] [id number] November, [facility] [address] [facility] [id number] [address]- 2714 November, [facility] [place] [address] [id number] [place] [id number] November, [facility] [address] [id number] [place] [id number] November, [facility] [address] [id number] [place] [id number] Oct, [facility] [address] [id number] [place] [id number] Oct, [facility] [address] [id number] [place] [id number] Oct, [facility] [address] [id number] [place] [id number] Oct, [facility] [address] [id number] [place] [id number] Oct, [facility] [address] [id number] [place] [id number] Oct, [facility] [address] [facility] [id number] [place] [id number] Sep, [facility] [address] [id number] [place] [id number] Aug, [facility] [address] [id number] [place] [id number] Aug, [facility] [place] [address] [facility] [id number] [place] [id number] Jul, [facility] [place] [facility] [address] [facility] [id number] [place] [address] Jun, [facility] [place] [facility] [address] [facility] [id number] [place] [address], [place] [address] Jun, [facility] [place] [facility] [address] [facility] [id number] [place] [address] Jun, [facility] [place] [facility] [id number] [place] [address], [place] [address] Jun, [facility] [place] [facility] [address] [id number] [place] [address] May, [facility] [place] [facility] [id number] [place] [address] May, [facility] [place] [facility] [address] [id number] [place] [address] Apr, [facility] [place] [facility] [id number] [address] Apr, [facility] [place] [facility] [address] [facility] [id number] [place] [address] Apr, [facility] [place] [facility] [address] [facility] [id number] [place] [address] Feb, [facility] [place] [facility] [address] [facility] [id number] [place] [address] Aug, [facility] [place] [facility] [id number] [place] [address] Jul, [facility] [place] [facility] [address] [id number] [place] [address] 30 Jun, 2010 [facility] [place] [facility] [address] [id number] [place] [address] May, [facility] [place] [facility] [address] [id number] [place] [address] May, [facility] [place] [facility] [address] [id number] [place] [address] May, [facility] [place] [facility] [address] [id number] [place] [address] May, [facility] [place] [facility] [address] [id number] [place] [address] May, [facility] [place] [facility] [address] [facility] [id number] [place] [address] Aug, [facility] [place] [facility] [address] [id number] [place] [address] Jun, [facility] [place] [facility] [address] [facility] [id number] [place] [address] Jun, [facility] [place] [facility] [address] [facility] [id number] [place] [address] Jun, [facility] [place] [facility] [address] [facility] [id number] [place] [address] May, [facility] [place] [facility] [address] [id number] [place] [address] 28 Apr, 2009 [facility] [place] [facility] [address] [id number] [place] [address] Apr, [facility] [place] [facility] [address] [id number] [place] [address] 15 Apr, 2009 [facility] [place] [facility] [address] [facility] [id number] [place] [address] Jan, [facility] [place] [facility] [address] [id number] [place] [address] Oct, [facility] [address] [facility] [id number] [place] [address] May, [facility] [address] [facility] [id number] [place] [address] May, IMMUNIZATIONS No Known Immunizations SOCIAL HISTORY [...] Dialysis [facility] 2012 -Dr. Simon now [facility] [employer] [facility] [facility] Medical History Colonoscopy (polyps 2 ) [...]
--- OUTSIDE RECORDS SUMMARY | 2017-12-22 19:58 | XMS REPORT ---
Author Author CHELSY VILLAFANA Organization [facility] Address [address] [place] [address] Care Team Providers Care Youth Minister Name Role Phone CHELSY VILLAFANA Unavailable PROBLEMS Type Condition ICD9-CM Code CXQ28-QJ Code Onset Dates Condition Status SNOMED Code Problem Chronic pain syndrome G89.4 Active 245376028 Problem Type 2 diabetes mellitus with hyperglycemia E11.65 Active 700594415336197 Problem Primary insomnia F51.01 Active 5619834 Problem Bilateral lower extremity edema R60.0 Active 475406213 Problem Anemia in other chronic diseases classified elsewhere D63.8 Active 134534156 Problem Supplemental oxygen dependent Z99.81 Active 005821124854 Problem Right carpal tunnel syndrome G56.01 Active 199012320706469 Problem 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 Active 727197451369171 Problem Paresthesia of right upper extremity R20.2 Active 22475879 Problem Chronic kidney disease, stage 4 (severe) N18.4 Active 985970332 Problem 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 Active 509397213 Problem Psoriasis of scalp L40.9 Active 866795762 Problem Gastroesophageal reflux disease without esophagitis K21.9 Active 936543043 Problem Chronic obstructive pulmonary disease, unspecified COPD type J44.9 Active 84449407 Problem Type 2 diabetes mellitus with other diabetic kidney complication E11.29 Active 165796929 Problem Diabetic polyneuropathy associated with type 2 diabetes mellitus E11.42 Active 39538761 Problem History of DVT (deep vein thrombosis) Z86.718 Active 726820357 Problem [facility] current use of anticoagulant Z79.01 Active 423642308 Problem Oxygen desaturation during sleep G47.34 Active 352298140 Problem Essential hypertension I10 Active 24347636 Problem Depression, unspecified depression type F32.9 Active 51967863 Problem Sleep apnea in adult G47.33 Active 14319785 ALLERGIES No Information ENCOUNTERS Encounter Location Date Diagnosis [facility] [address] [id number] [id number] Oct, Bilateral lower extremity edema R60.0 [address], [place] [address] Oct, [address], [place] [address] Sep, Type 2 diabetes mellitus with other diabetic kidney complication E11.29 and Chronic obstructive pulmonary disease, unspecified COPD type J44.9 [address], [place] [address] 15 Aug, 2017 Type 2 diabetes mellitus with other diabetic kidney complication E11.29 [address] [place] [address] 19947- 0217 12 Aug, 2017 Gastroesophageal reflux disease without esophagitis K21.9 ; [facility] current use of anticoagulant Z79.01 ; Chronic pain syndrome G89.4 ; Essential hypertension I10 and Type 2 diabetes mellitus with other diabetic kidney complication E11.29 [address], [place] [address] 08 Aug, 2017 Chronic pain syndrome G89.4 [address], [place] [address] 0470 Aug, Type 2 diabetes mellitus with other diabetic kidney complication E11.29 [address], [place] [address] Jul, Diabetic polyneuropathy associated with type 2 diabetes mellitus E11.42 [id number] [address] Jul, Primary insomnia F51.01 [address] [place] [address] 49103- 4720 Jul, [address], [place] [address] Jul, Type 2 diabetes mellitus with other diabetic kidney complication E11.29 and Chronic obstructive pulmonary disease, unspecified COPD type J44.9 [address], [place] [address] 99[address] Jul, Type 2 diabetes mellitus with other diabetic kidney complication E11.29 [address] [place] [address] 42455- 2675 Jun, Type 2 diabetes mellitus with other diabetic kidney complication E11.29 [id number] [place] [address] 19852- 9417 Jun, [id number] [place] [address] 47009- 1688 Jun, Chronic obstructive pulmonary disease, unspecified COPD type J44.9 [id number] [place] [address] 64256- 9299 May, Type 2 diabetes mellitus with other diabetic kidney complication E11.29 [id number] [place] [address] 62305- 5650 May, 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4 ; BMI 40.0-44.9, adult Z68.41 ; Gastroesophageal reflux disease without esophagitis K21.9 ; 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 manager current use of anticoagulant Z79.01 ; 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 ; Diabetic polyneuropathy associated with type 2 diabetes mellitus E11.42 ; Edema of both legs R60.0 and Supplemental oxygen dependent Z99.81 [address] [place] [address] 93843- 5493 May, [facility] [id number] [place] [address] 31755- 3316 May, Essential hypertension I10 and Gastroesophageal reflux disease without esophagitis K21.9 [facility] [id number] [place] [address] 54610- 1159 May, [facility] [address] [address]- 2579 May, Type 2 diabetes mellitus with other diabetic kidney complication E11.29 and [facility] current use of anticoagulant Z79.01 [id number] [place] [address] 63451- 0214 Apr, Chronic pain syndrome G89.4 and Essential hypertension I10 [address] 39324- 9107 Apr, Type 2 diabetes mellitus with other diabetic kidney complication E11.29 [facility] [id number] [place] [address] 34251- 1521 Apr, Type 2 diabetes mellitus with other diabetic kidney complication E11.29 [facility] [id number] [place] [address] 64919- 2598 Apr, Essential hypertension I10 [facility] [id number] [place] [address] 36823- 9057 Apr, Gastroesophageal reflux disease without esophagitis K21.9 [facility] [id number] [place] [address] 32035- 0932 Apr, Type 2 diabetes mellitus with other diabetic kidney complication E11.29 [facility] [id number] [place] [address] 13224- 7249 Apr, Type 2 diabetes mellitus with other diabetic kidney complication E11.29 and 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 manager current use of anticoagulant Z79.01 [facility] [id number] [place] [address] 75966- 3889 Mar, Encounter for immunization Z23 and Preoperative examination Z01.818 [address] [place] [address] 49927- 7274 Mar, [id number] [place] [address] 23391- 9781 Mar, Type 2 diabetes mellitus with other diabetic kidney complication E11.29 [address] [place] [id number] [place] [address] 21881- 5402 08 Mar, 2017 Type 2 diabetes mellitus with other diabetic kidney complication E11.29 [id number] [place] [address] 55643- 5505 Mar, Gastroesophageal reflux disease without esophagitis K21.9 [address] [id number] [place] [address] 53021- 3416 Mar, Essential hypertension I10 [id number] [place] [address] 96011- 1497 Feb, [facility] current use of anticoagulant Z79.01 [id number] [place] [address] 81333- 1118 Feb, Type 2 diabetes mellitus with other diabetic kidney complication E11.29 [address] [id number] [place] [address] 37034- 2851 Feb, Type 2 diabetes mellitus with other diabetic kidney complication E11.29 [id number] [place] [address] 07071- 2047 Feb, Type 2 diabetes mellitus with other diabetic kidney complication E11.29 [id number] [place] [address] 01129- 8485 Feb, Gastroesophageal reflux disease without esophagitis K21.9 [facility] [id number] [place] [address] 51943- 5482 Feb, Type 2 diabetes mellitus with other diabetic kidney complication E11.29 [address] [id number] [place] [address] 04704- 2457 Feb, 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 manager 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.01 [address], [place] [address] 12[address] Jan, 2017 Type 2 diabetes mellitus with other diabetic kidney complication E11.29 [facility] [address], [place] [address] 2546 Jan, Type 2 diabetes mellitus with other diabetic kidney complication E11.29 [facility] [address], [place] [address] 0858 Jan, Chronic pain syndrome G89.4 [facility] [address], [place] [address] 2545 Jan, [facility] [address] [place] [address] 08379- 8496 Jan, [facility] [address] [place] [address] 77458- 0926 Jan, [facility] [address], [place] [address] 1053 Jan, [facility] [address], [place] [address] 1859 Jan, Primary insomnia F51.01 ; Type 2 diabetes mellitus with other diabetic kidney complication E11.29 ; Chronic pain syndrome G89.4 and Essential hypertension I10 [facility] [address], [place] [address] 4994 Jan, Primary insomnia F51.01 [facility] [address], [place] [address]- 1071 Jan, Type 2 diabetes mellitus with other diabetic kidney complication E11.29 [facility] [address], [place] [address]- 9892 Jan, [facility] [address] [address]66 Jan, Chronic obstructive pulmonary disease, unspecified COPD type J44.9 [facility] [address], [place] [address]- 0637 Jan, Essential hypertension I10 ; Type 2 diabetes mellitus with other diabetic kidney complication E11.29 ; Chronic obstructive pulmonary disease, unspecified COPD type J44.9 ; Chronic kidney disease, stage 4 (severe) N18.4 ; Right carpal tunnel syndrome G56.01 ; 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 ; [facility] (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 and Diabetic polyneuropathy associated with type 2 diabetes mellitus E11.42 [facility] [id number] [place] [address] 31669- 6696 Jan, Gastroesophageal reflux disease without esophagitis K21.9 [facility] [id number] [place] [address] 57913- 3389 Dec, [facility] [id number] [place] [address] 57925- 5871 Dec, [facility] [id number] [place] [address] 60986- 7393 Dec, [facility] current use of anticoagulant Z79.01 ; Chronic pain syndrome G89.4 and Essential hypertension I10 [facility] [id number] [place] [address] 81234- 2937 Dec, [facility] [id number] [place] [address] 46069- 0547 Dec, Type 2 diabetes mellitus with other diabetic kidney complication E11.29 [facility] [id number] [place] [address] 95019- 6029 Dec, [facility] [id number] [place] [address] 33371- 7694 Dec, Gastroesophageal reflux disease without esophagitis K21.9 [facility] [id number] [place] [address] 23698- 6662 November, Type 2 diabetes mellitus with other diabetic kidney complication E11.29 [facility] [id number] [place] [address] 47111- 2026 November, [facility] [address] [place] [address]- 1741 November, Type 2 diabetes mellitus with other diabetic kidney complication E11.29 [facility] [address], [place] [address]- 7633 November, [facility] [address], [place] [address]- 9454 November, Type 2 diabetes mellitus with other diabetic kidney complication E11.29 [facility] [address], [place] [address]- 5890 November, [facility] [address] [place] [address] 31418- 9622 Oct, Essential hypertension I10 [facility] [id number] [place] [address] 53866- 3027 Oct, Psoriasis of scalp L40.9 [facility] [id number] [place] [address] 68602- 2201 Oct, Essential hypertension I10 and Chronic pain syndrome G89.4 [facility] [address], [place] [address]- 5731 Oct, [facility] [address], [place] [address]- 4277 Sep, Type 2 diabetes mellitus with other diabetic kidney complication E11.29 [facility] [address], [place] [address]- 7972 Sep, [facility] [address], [place] [address]- 0106 Sep, Type 2 diabetes mellitus with other diabetic kidney complication E11.29 [facility] [address], [place] [address]- 4974 Sep, Type 2 diabetes mellitus with other diabetic kidney complication E11.29 [facility] [address], [place] [address]- 1135 Sep, Type 2 diabetes mellitus with other diabetic kidney complication E11.29 ; Chronic kidney disease, stage 4 (severe) N18.4 ; Chronic obstructive pulmonary disease, unspecified COPD type J44.9 ; Iron deficiency anemia due to chronic blood loss D50.0 ; 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 manager 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 of 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 ; Gastroesophageal reflux disease without esophagitis K21.9 ; Essential hypertension I10 ; Primary insomnia F51.01 ; Depression, unspecified depression type F32.9 ; Chronic pain syndrome G89.4 ; Wrist pain, right M25.531 ; Paresthesia of right upper extremity R20.2 and Psoriasis of scalp L40.9 [address] 95355- 9645 Sep, [address] 80258- 7677 Aug, Essential hypertension I10 [address] 04115- 9986 Aug, History of DVT (deep vein thrombosis) Z86.718 [address] 36908- 3088 Aug, [address] 94091- 2347 Jul, [address] 86499- 6249 Jul, [id number] [place] [address] 04470- 2607 Jul, 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 manager 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 ; Chronic pain syndrome G89.4 and Chronic kidney disease, stage 4 (severe) N18.4 [address] 49998- 7078 Jul, [address] 10863- 1872 Jul, [address] 05634- 0891 Jul, [address] [id number] [address]- 9075 Jul, [address] [place] [address] 71920- 0353 Jul, [id number] [place] [address] 18051- 5900 Jul, Type 2 diabetes mellitus with other diabetic kidney complication E11.29 [id number] [place] [address] 11658- 3805 16 Jul, 2016 History of DVT (deep vein thrombosis) Z86.718 [id number] [place] [address] 91782- 6838 Jun, [id number] [place] [address] 94299- 3523 Jun, History of DVT (deep vein thrombosis) Z86.718 [address] [place] [address] 20513- 7604 15 Jun, 2016 Post traumatic stress disorder (PTSD) F43.10 [address] [place] [address] 59772- 5534 07 Jun, 2016 Type 2 diabetes mellitus with other diabetic kidney complication E11.29 ; Diabetic polyneuropathy associated with type 2 diabetes mellitus E11.42 ; Iron deficiency anemia due to chronic blood loss D50.0 ; Chronic obstructive pulmonary disease, unspecified COPD type J44.9 ; 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 manager 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 ; [...] pain M79.641 and Right wrist pain M25.531 [id number] [address]- 4081 May, [facility] [address] [place] [address]- 5939 May, [facility] [id number] [address]- 3111 May, [facility] [id number] [place] [address], [place] [address]- 9292 15 May, 2016 [facility] [id number] [address]- 6744 May, Anemia in other chronic diseases classified elsewhere D63.8 [facility] [address] [place] [address], [place] [address]- 0367 May, [facility] [address] [place] [address]- 7697 Apr, [facility] [address] [place] [address] 64997- 2532 27 Mar, 2016 Dermatofibroma D23.9 [facility] [address] [place] [address], [place] [address]- 7030 20 Mar, 2016 [facility] [address] [place] [address]- 7968 14 Mar, 2016 Chronic pain syndrome G89.4 [facility] [address] [place] [address] 2543 09 Mar, 2015 [facility] [address], [place] [address]- 2549 07 Mar, 2015 [facility] [address] [address]- 4709 06 Mar, 2016 [facility] [address] [address]- 2548 Feb, [facility] [address], [place] [address]- 9973 Feb, [facility] [address], [place] [address]- 6877 Feb, [address], [place] [address]- 5342 Feb, [facility] [address], [place] [address]- 1844 Feb, [address] [place] [address] 07081- 8829 Feb, [address], [place] [address]- 2949 Feb, Type 2 diabetes mellitus with other diabetic kidney complication E11.29 ; Diabetic polyneuropathy associated with type 2 diabetes mellitus E11.42 ; Iron deficiency anemia due to chronic blood loss D50.0 ; Chronic obstructive pulmonary disease, unspecified COPD type J44.9 ; 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 manager 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 of 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 ; History of DVT (deep vein thrombosis) Z86.718 ; Chronic pain syndrome G89.4 ; Oxygen desaturation during sleep G47.34 ; Sleep apnea in adult G47.33 ; Gastroesophageal reflux disease without esophagitis K21.9 ; Essential hypertension I10 ; Primary insomnia F51.01 ; Depression, unspecified depression type F32.9 and Renal failure, chronic, stage 4 (severe) N18.4 [address], [place] [address]- 7292 Feb, Skin tags, multiple acquired L91.8 [address] [address], [place] [address]- 9388 Jan, [facility] [address] [id number] Jan, Dental examination Z01.20 [address], [place] [address]- 1503 Jan, [address], [place] [address]- 2563 Jan, Type 2 diabetes mellitus with other diabetic kidney complication E11.29 ; Diabetic polyneuropathy associated with type 2 diabetes mellitus E11.42 ; Iron deficiency anemia due to chronic blood loss D50.0 ; Chronic obstructive pulmonary disease, unspecified COPD type J44.9 ; 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 manager 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 ; [...] Renal failure, chronic, stage 4 (severe) N18.4 [facility] [id number] [place] [address] 64887- 1069 Dec, Diabetes type 2, uncontrolled E11.65 [place] [id number] [place] [address] 83866- 6009 Dec, [address] 90263- 9058 Dec, Type 2 diabetes mellitus with other diabetic kidney complication E11.29 ; Diabetic polyneuropathy associated with type 2 diabetes mellitus E11.42 ; Iron deficiency anemia due to chronic blood loss D50.0 ; Chronic obstructive pulmonary disease, unspecified COPD type J44.9 ; [facility] current use of anticoagulant Z79.01 ; History of DVT (deep vein thrombosis) Z86.718 ; Chronic pain syndrome G89.4 ; Oxygen desaturation during sleep G47.34 ; Sleep apnea in adult G47.33 ; Gastroesophageal reflux disease without esophagitis K21.9 ; Essential hypertension I10 ; Primary insomnia F51.01 and Depression, unspecified depression type F32.9 [facility] [address] [id number][place] [id number] Dec, Dental caries K02.9 [facility] [address] [id number][place] [id number] Dec, [facility] [id number] [place] [address] [id number] Dec, Dental examination Z01.20 [facility] [address] [id number] [id number] November, Dental examination Z01.20 and Dental caries K02.9 [facility] [address] [id number], [place] [id number] Oct, [facility] [address] [id number], [place] [id number] Oct, [facility] [address] [id number], [place] [id number] Sep, [facility] [address] [id number] [place] [address] [id number] Sep, [facility] [id number] [place] [id number] Sep, [facility] [id number] [place] [address] [id number] Sep, Other chronic pain 338.29 [facility] [id number] [place] [address] [id number] Aug, Diabetes type 2, uncontrolled E11.65 and Morbid obesity due to excess calories E66.01 [facility] [id number], [place] [id number] Aug, Hair loss L65.9 [facility] [id number] [place] [address] [id number] Aug, [facility] [id number], [place] [id number] Jul, [facility] [id number] [place] [address] [id number] Jul, [facility] [id number], [place] [id number] Jun, [facility] [id number], [place] [id number] Jun, Hair loss L65.9 and Disorder of the skin and subcutaneous tissue, unspecified L98.9 [facility] [id number], [place] [id number] May, Type 2 diabetes mellitus with other diabetic kidney complication E11.29 ; Type 2 diabetes mellitus with hyperglycemia E11.65 ; Morbid obesity due to excess calories E66.01 and Essential hypertension I10 [id number] [place] [address] [id number] May, Diabetes type 2, uncontrolled E11.65 ; Encounter for immunization Z23 and Morbid obesity due to excess calories E66.01 [facility] [id number] [place] [address] [id number] May, 2015 [facility] [address] [address] Apr, [id number] [place] [address] [id number] Apr, Hyperglycemia R73.[address] [id number] Apr, [address] [id number] Apr, Depression F32.9 ; Encounter for immunization Z23 ; Hyperglycemia R73.9 and Anemia in other chronic diseases classified elsewhere D63.8 [facility] [id number] [place] [address] [id number] Mar, [id number] [place] [address] [id number] Feb, Positive occult stool blood test 792.1 [id number] [place] [address] [id number] Feb, Depression 311 ; Other chronic pain 338.29 and Diabetes with renal manifestations, type II or unspecified type, not stated as uncontrolled 250.40 [facility] [place] [id number] [place] [address]679- 0222 Feb, Occult blood in stools 792.1 [id number] [place] [address] [id number] Feb, Anemia 285.9 ; Occult blood positive stool 792.1 ; Unspecified essential hypertension 401.9 and Other chronic pain 338.[id number] [place] [address] [id number] Feb, [id number] [place] [address] [id number] Feb, Anemia 285.9 [facility] [id number], [place] [id number] Feb, [facility] [id number] [place] [address] [id number] Feb, [facility] [id number], [place] [id number] Feb, Diabetes with renal manifestations, type II or unspecified type, not stated as uncontrolled 250.40 ; Other chronic pain 338.29 ; Unspecified essential hypertension 401.9 ; Anemia 285.9 and Depression 311 [facility] [id number], [place] [id number] Jan, [facility] [id number] [place] [address] [id number] Jan, Anemia 285.9 and Follow up V67.9 [facility] [id number], [place] [id number] Jan, [facility] [id number] [place] [address] [id number] Jan, [facility] [id number], [place] [id number] Jan, [facility] [id number] [place] [address] [id number] Dec, [facility] [place] [id number] [place] [address]- [phone] Oct, [facility] [place] [id number] [place] [address] 81351- 1501 Oct, [facility] [place] [id number] [place] [address]32 2546 Sep, [facility] [id number], [place] [id number] Sep, [facility] [place] [id number] [place] [address] 71179- 8603 Sep, [facility] [id number], [place] [id number] Aug, [facility] [place] [address] [id number], [place] [address]- 2956 Aug, 2014 [facility] [place] [facility] [address] [facility] [id number] [place] [address]- [address] Aug, [facility] [address] [facility] [id number], [place] [phone] Aug, [facility] [place] [facility] [address]00565100[facility] [address]- [address] Aug, [facility] [place] [facility] [address] [facility] [id number], [place] [address]- 8333 Aug, [facility] [address] [facility] [id number] [place] [id number] Aug, [facility] [place] [facility] [address] [id number] [address]- 1115 Aug, [facility] [id number], [place] [id number] Jul, [facility] [place] [facility] [address] [id number], [place] [address]- 6818 Jul, [facility] [place] [facility] [address]00565100[place], [place] [address]- 9240 Jul, [facility] [address] [facility] [id number], [place] [id number] Jul, [facility] [place] [facility] [address]00565100[place], [place] [address]- 8488 Jul, [facility] [address] [facility] [id number], [place] [id number] Jul, [facility] [place] [facility] [address] [facility] [id number], [place] [address]- 8979 Jul, [facility] [address] [id number], [place] [id number] Jun, [facility] [address] [facility] [id number], [place] [id number] Jun, [facility] [place] [facility] [address] [id number], [place] [address]- 8330 Jun, [facility] [place] [facility] [address] [facility] [id number], [place] [address]- 4882 Jun, [facility] [address] [facility] [id number] [place] [id number] Jun, [facility] [place] [facility] [address] [facility] [id number], [place] [address]- 8606 Jun, [facility] [address] [facility] [id number], [place] [id number] May, [facility] [place] [facility] [address] [facility] [id number], [place] [address]- 3408 May, [facility] [place] [facility] [address] [facility] [id number], [place] [address]- 5139 May, [facility] [address] [facility] [id number], [place] [id number] Apr, [facility] [place] [facility] [address] [facility] [id number], [place] [address]- 8597 Apr, [facility] [address] [facility] [id number], [place] [id number] Apr, [facility] [address] [facility] [id number], [place] [id number] Apr, [facility] [place] [facility] [address] [facility] [id number], [place] [address]- 1503 Apr, [facility] [place] [facility] [address] [facility] [id number], [place] [address]- 1417 Apr, [facility] [address] [facility] [id number], [place] [id number] Mar, [facility] [place] [facility] [address] [facility] [id number], [place] [address]- 8012 Mar, [facility] [address] [facility] [id number], [place] [id number] Mar, [facility] [place] [facility] [address] [facility] [id number], [place] [address]- 1821 17 Mar, 2014 [facility] [address] [facility] [id number], [place] [id number] Mar, [facility] [place] [facility] [address] [id number] [place] [address]- 5004 Mar, [facility] [address] [id number] [place] [id number] Mar, [facility] [place] [facility] [address] [facility] [id number] [place] [address]- 2826 Mar, [facility] [address] [id number] [place] [id number] Mar, [facility] [place] [facility] [address] [id number] [place] [address]- 5945 Mar, [facility] [address] [id number] [place] [id number] Feb, [facility] [place] [facility] [address] [facility] [id number] [place] [address]- 2726 Feb, [facility] [address] [facility] [id number] [place] [id number] Jan, [facility] [place] [facility] [address] [facility] [id number], [place] [address]- 5918 Jan, [facility] [address] [facility] [id number], [place] [id number] Jan, [facility] [place] [facility] [address] [facility] [id number], [place] [address]- 8832 Jan, [facility] [address] [id number] [place] [id number] Jan, [facility] [place] [facility] [address] [facility] [id number], [place] [address]- 8264 Jan, [facility] [place] [facility] [address] [facility] [id number], [place] [address]- 5641 Dec, [facility] [place] [facility] [address] [facility] [id number], [place] [address]- 6297 Dec, [facility] [address] [facility] [id number] [place] [id number] November, [facility] [place] [facility] [address] [facility] [id number], [place] [address]- 4665 November, [facility] [address] [facility] [id number] [place] [id number] November, [facility] [place] [facility] [address] [id number] [place] [address]- 2409 November, [facility] [address] [facility] [id number] [place] [id number] Oct, [facility] [place] [facility] [address] [facility] [id number] [place] [address]- 8158 Oct, [facility] [place] [facility] [address] [facility] [id number] [place] [address]- 3270 Oct, [facility] [place] [facility] [address] [facility] [id number] [place] [address]- 9053 Oct, [facility] [place] [facility] [address] [id number] [address]- 0631 Oct, [facility] [place] [facility] [address] [id number] [address]- 3733 Oct, [facility] [address] [facility] [id number] [place] [id number] Sep, [facility] [address] [facility] [id number] [place] [id number] Sep, [facility] [place] [facility] [address] [facility] [id number] [place] [address]- 0589 Sep, [facility] [place] [facility] [address] [facility] [id number], [place] [address]- 5191 Sep, [facility] [address] [facility] [id number], [place] [id number] Sep, [facility] [place] [facility] [address] [facility] [id number] [place] [address]- 9919 Sep, [facility] [place] [facility] [address] [facility] [id number] [place] 17516941- 2124 Aug, [facility] [place] [facility] [address] [id number] [address]- 5499 Aug, [facility] [address] [id number] [place] [id number] Aug, [facility] [address] [facility] [id number] [place] [id number] Aug, [facility] [place] [facility] [address] [facility] [id number], [place] [address]- 2546 Aug, [facility] [address] [facility] [id number] [place] [id number] Aug, [facility] [place] [facility] [address] [facility] [id number], [place] [address]- 0476 Aug, [facility] [address] [facility] [id number] [place] [id number] Aug, [facility] [place] [facility] [address]00565100[place], [place] [address]- 0456 Aug, [facility] [id number] [place] [id number] Aug, [facility] [place] [facility] [address]00565100[place], [place] [address]- 2739 Aug, [facility] [address] [facility] [id number] [place] [id number] Aug, [facility] [place] [facility] [address]00565100[place], [place] [address]- 6456 Aug, [facility] [place] [facility] [address] [id number], [place] [address]- 3906 Jul, [facility] [address] [facility] [id number], [place] [id number] Jun, [facility] [place] [facility] [address] [facility] [id number], [place] [address]- 3445 Jun, [facility] [place] [facility] [address] [facility] [id number], [place] [address]- 0076 Jun, [facility] [place] [facility] [address] [id number], [place] [address]- 6498 Jun, [facility] [address] [facility] [id number], [place] [id number] Jun, [facility] [address] [facility] [id number], [place] [address]- 1866 Jun, [facility] [place] [facility] [address] [facility] [id number], [place] [address] 2546 Jun, [facility] [address] [facility] [id number], [place] [id number] Jun, [facility] [place] [facility] [address] [facility] [id number], [place] [address]- 9586 Jun, [facility] [place] [facility] [address] [facility] [id number], [place] [address]- 5563 May, [facility] [address] [facility] [id number], [place] [id number] May, [facility] [place] [facility] [address]00565100[place], [place] [address]- 4956 May, [facility] [place] [facility] [address] [id number], [place] [address]- 5785 May, [facility] [place] [facility] [address] [id number], [place] [address]- 3269 May, [facility] [place] [facility] [address] [id number], [place] [address]- 1105 May, [facility] [address] [facility] [id number], [place] [id number] May, [facility] [place] [facility] [address] [facility] [id number], [place] [address]- 7336 May, [facility] [address] [facility] [id number], [place] 098225324 May, [facility] [place] [facility] [address] [facility] [id number], [place] [address]- 2546 May, [facility] [address] [facility] [id number], [place] 874117351 Apr, [facility] [place] [facility] [address] [id number], [place] [address]- 1700 Apr, [facility] [address] [id number], [place] [address]- 9519 Apr, [facility] 120 [facility] [id number], [place] 090791771 Apr, [facility] [place] [facility] [address] [id number], [place] [address]- 3970 Apr, [facility] [place] [facility] [address] [id number], [place] [address]- 9851 Apr, [facility] 120 [facility] [id number], [place] 119845215 Apr, [facility] [place] [facility] [address] [id number], [place] [address]- 9938 Apr, [facility] [place] [facility] [address] [facility] [id number], [place] 610752- 5453 Apr, [facility] [place] [facility] [address] [facility] [id number], [place] 878041- 4967 Apr, [facility] [address] [facility] [id number], [place] 185466155 Apr, [facility] [place] [facility] [address] [id number], [place] [address]- 5628 Apr, [facility] 120 [facility] [id number], [place] 868715901 Apr, [facility] [place] [facility] [address] [facility] [id number], [place] [address]- 4622 Apr, [facility] 120 [facility] [id number], [place] 965943164 Apr, [facility] [place] [facility] [address] [facility] [id number], [place] [address]- 4841 Apr, [facility] [place] [facility] [address] [facility] [id number][place] [address]- 7073 Apr, [facility] [place] [facility] [address] [id number], [place] [address]- 3233 Apr, [facility] [address] [id number] [place] 711875444 Apr, [facility] [address] [facility] [id number], [place] [address]- 4923 Mar, [facility] [address] [facility] [id number], [place] [address]- 9903 Mar, [facility] [address] [id number] [place] 138371334 Mar, [facility] [address] [id number] [place] [id number] Mar, [facility] [address] [id number] [place] [id number] Mar, [facility] [address] [id number] [place] [id number] Feb, [facility] [address] [id number] [place] 908081007 Feb, [facility] [address] [id number] [place] [id number] Feb, [facility] [address] [facility] [id number], [place] [address]- 9066 Feb, [facility] [address] [id number] [place] [id number] Feb, [facility] [address] [id number] [place] 393319118 Feb, [facility] [address] [id number] [place] 928624695 Feb, [facility] [address] [id number] [place] 083567162 Feb, [facility] [address] [id number] [place] 467624710 Feb, [facility] [address] [id number] [place] 732766641 Jan, [facility] [address] [id number] [place] [id number] Jan, [facility] [address] [id number] [place] 798560452 Jan, [facility] [address] [id number] [place] 282349694 Jan, [facility] [address] [id number] [place] 620135967 Jan, [facility] [address] [facility] [id number], [place] [address]- 0036 Jan, [facility] [address] [id number] [place] 055104046 Jan, [facility] [address] [id number] [place] [id number] Jan, [facility] [address] [id number] [place] 881967653 Dec, [facility] [address] [id number] [place] 015467729 November, [facility] [address] [id number] [place] [id number] November, [facility] [address] [id number] [place] 207175044 November, [facility] [address] [id number] [place] 196700808 November, [facility] [address] [id number] [place] [id number] November, [facility] [address] [id number] [place] 017744364 November, [facility] [address] [id number] [place] [id number] Jul, [facility] [address] [id number] [place] [id number] Jul, [facility] [address] [id number] [place] 389876063 Jul, [facility] [address] [id number] [place] 533931516 Jun, [facility] [id number], [place] [address] Jun, [facility] [place] [address] [id number][place] [id number] May, [facility] [id number], [place] [address] May, [facility] [place] [address] [id number][place] [id number] May, [facility] [place] [facility] [address] [facility] [id number], [place] [address] May, [facility] [place] [address] [id number][place] [id number] May, [facility] [place] [facility] [address] [facility] [id number], [place] [address] May, [facility] [place] [address] [id number][place] [id number] Apr, [facility] [place] [facility] [address] [facility] [id number] [place] [address] Apr, [facility] [place] [facility] [address] [id number], [place] [address] Apr, [facility] [place] [address] [id number], [place] [id number] Apr, [facility] [place] [address] [id number], [place] [id number] Apr, [facility] [place] [facility] [address] [facility] [id number], [place] [address] Apr, [facility] [place] [facility] [address] [facility] [id number], [place] [address] Apr, [facility] [place] [address] [id number], [place] [id number] Apr, [facility] [place] [facility] [address] [facility] [id number], [place] [address] Apr, [facility] [place] [address] [id number], [place] [id number] Apr, [facility] [place] [address] [id number], [place] [id number] Apr, [facility] [place] [address] [id number][place] [id number] Mar, [facility] [place] [address] [id number] [place] [id number] Feb, [facility] [place] [address] [id number] [place] [id number] Jan, [facility] [place] [address] [id number] [place] [id number] Dec, [facility] [place] [address] [id number] [place] [id number] Dec, [facility] [place] [address] [id number] [place] [id number] Dec, [facility] [place] [address] [id number] [place] [id number] Dec, [facility] [place] [address] [id number] [place] [id number] Dec, [facility] [place] [address] [id number] [place] [id number] November, [facility] [place] [address] [id number] [place] [id number] November, [facility] [place] [address] [id number] [place] [id number] November, [facility] [address] [facility] [id number], [place] [address] November, [facility] [place] [address] [id number] [place] [id number] November, [facility] [place] [address] [id number] [place] [id number] November, [facility] [place] [address] [id number] [place] [id number] Oct, [facility] [place] [address] [id number] [place] [id number] Oct, [facility] [place] [address] [id number] [place] [id number] Oct, [facility] [place] [address] [id number] [place] [id number] Oct, [facility] [place] [address] [id number] [place] [id number] Oct, [facility] [place] [address] [id number] [place] [id number] Oct, [facility] [place] [address] [facility] [id number] [place] [id number] Sep, [facility] [place] [address] [id number] [place] [id number] Aug, [facility] [place] [address] [id number] [place] [id number] Aug, [facility] [place] [address] [facility] [id number] [place] [id number] Jul, [facility] [place] [facility] [address] [facility] [id number] [place] [address] Jun, [facility] [place] [facility] [address] [facility] [id number] [place] [address], [place] [address] Jun, [facility] [place] [facility] [address] [facility] [id number] [place] [address] Jun, [facility] [place] [facility] [id number] [place] [address], [place] [address]- [address] Jun, [facility] [place] [facility] [address] [id number], [place] [address] May, [facility] [place] [facility] [id number] [place] [address] May, [facility] [place] [facility] [address] [id number] [address] Apr, [facility] [place] [facility] [id number], [place] [address] Apr, [facility] [place] [facility] [address] [facility] [id number], [place] [address] Apr, [facility] [place] [facility] [address] [facility] [id number], [place] [address] Feb, [facility] [place] [facility] [address] [facility] [id number], [place] [address] Aug, [facility] [place] [facility] [id number], [place] [address] Jul, [facility] [place] [facility] [address] [id number] [place] [address] 30 Jun, 2010 [facility] [place] [facility] [address] [id number] [place] [address] May, [facility] [place] [facility] [address] [id number] [place] [address] May, [facility] [place] [facility] [address] [id number] [place] [address] May, [facility] [place] [facility] [address] [id number] [place] [address] May, [facility] [place] [facility] [address] [id number] [place] [address] May, [facility] [place] [facility] [address] [facility] [id number] [place] [address] Aug, [facility] [place] [facility] [address] [id number], [place] [address] Jun, [facility] [place] [facility] [address] [facility] [id number], [place] [address] Jun, [facility] [place] [facility] [address] [facility] [id number], [place] [address] Jun, [facility] [place] [facility] [address] [facility] [id number], [place] [address] May, [facility] [place] [facility] [address] [id number], [place] [address] 28 Apr, 2009 [facility] [place] [facility] [address] [id number], [place] [address] Apr, [facility] [place] [facility] [address] [id number], [place] [address] 15 Apr, 2009 [facility] [place] [facility] [address] [facility] [id number], [place] [address] Jan, [facility] [place] [facility] [address] [id number], [place] [address] Oct, [facility] [place] [address] [facility] [id number] [place] [address] May, [facility] [place] [address] [facility] [id number] [place] [address] May, IMMUNIZATIONS No Known Immunizations SOCIAL HISTORY [...] Dialysis [facility] 2012 -Dr. Simon now [facility] Medical History Colonoscopy (polyps 2 ) [...]
--- OUTSIDE RECORDS SUMMARY | 2017-12-22 19:59 | XMS REPORT ---
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 Active 834522216 Problem 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 Active 820961451874686 Problem Chronic kidney disease, stage 4 (severe) N18.4 Active 551720985 Problem Type 2 diabetes mellitus with hyperglycemia E11.65 Active 148545640952240 Problem Psoriasis of scalp L40.9 Active 055140334 Problem Paresthesia of right upper extremity R20.2 Active 31668013 Problem Diabetic polyneuropathy associated with type 2 diabetes mellitus E11.42 Active 96257827 Problem Gastroesophageal reflux disease without esophagitis K21.9 Active 917959219 Problem Anemia in other chronic diseases classified elsewhere D63.8 Active 338051761 Problem Type 2 diabetes mellitus with other diabetic kidney 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 Active 130107464 Problem Depression, unspecified depression type F32.9 Active 67932767 Problem History of DVT (deep vein thrombosis) Z86.718 Active 364246210 Problem Chronic obstructive pulmonary disease, unspecified COPD type J44.9 Active 37624689 Problem 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 Active 766957687 Problem Oxygen desaturation during sleep G47.34 Active 413616821 Problem Essential hypertension I10 Active 60846996 ALLERGIES No Information ENCOUNTERS Encounter Location Date Diagnosis [facility] [address] [facility] [id number] [place] [id number] Oct, [facility] [address] [address] Oct, [facility] [id number] [place] [address] 47021- 3529 Oct, [place] [address] [place] [address] 94119- 4694 Sep, Type 2 diabetes mellitus with other diabetic kidney complication E11.29 and Chronic obstructive pulmonary disease, unspecified COPD type J44.9 [place] [id number] [address] 9843 15 Aug, 2017 Type 2 diabetes mellitus with other diabetic kidney complication E11.29 [place] [address] [place] [address] 13662- 8757 12 Aug, 2017 Gastroesophageal reflux disease without esophagitis K21.9 ; halfway current use of anticoagulant Z79.01 ; Chronic pain syndrome G89.4 ; Essential hypertension I10 and Type 2 diabetes mellitus with other diabetic kidney complication E11.29 [place] [address] [address] 0624 08 Aug, 2017 Chronic pain syndrome G89.4 [place] [address] [place] [address] 63341- 5769 Aug, Type 2 diabetes mellitus with other diabetic kidney complication E11.29 [place] [address] [address] 8088 Jul, Diabetic polyneuropathy associated with type 2 diabetes mellitus E11.42 [place] [address] [address] 8561 Jul, Primary insomnia F51.01 [place] [id number] [place] [address] 84233- 0568 Jul, [place] [address] [place] [address] 63569- 6120 Jul, Type 2 diabetes mellitus with other diabetic kidney complication E11.29 and Chronic obstructive pulmonary disease, unspecified COPD type J44.9 [place] [address] [address] 5834 Jul, Type 2 diabetes mellitus with other diabetic kidney complication E11.29 [place] [address] [address] 1210 Jun, Type 2 diabetes mellitus with other diabetic kidney complication E11.29 [place] [id number] [place] [address] 02260- 2060 Jun, [place] [id number] [place] [address] 62746- 2273 Jun, Chronic obstructive pulmonary disease, unspecified COPD type J44.9 [place] [id number] [place] [address] 15292- 8044 May, Type 2 diabetes mellitus with other diabetic kidney complication E11.29 [place] [id number] [address] 0203 May, 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 and Essential hypertension I10 [address] [place] [address] 05040- 1123 May, Anemia in other chronic diseases classified elsewhere D63.8 ; Chronic obstructive pulmonary disease, unspecified COPD type J44.9 ; Oxygen desaturation during sleep G47.34 ; Sleep apnea in adult G47.33 and Supplemental oxygen dependent Z99.[address] [place] [address] 84774- 9858 May, Type 2 diabetes mellitus with other diabetic kidney complication E11.29 ; Essential hypertension I10 ; Chronic pain syndrome G89.4 ; BMI 40.0-44.9, adult Z68.41 ; Gastroesophageal reflux disease without esophagitis K21.9 ; 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 ; 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 ; Diabetic polyneuropathy associated with type 2 diabetes mellitus E11.42 ; Edema of both legs R60.0 and Supplemental oxygen dependent Z99.81 [place] [id number] [place] [address] 23751- 0496 08 May, 2017 [facility] [id number] [place] [address] 22985- 4961 May, Essential hypertension I10 and Gastroesophageal reflux disease without esophagitis K21.9 [facility] [id number] [place] [address] 81176- 9537 May, [facility] [address] 69353- 3564 May, Type 2 diabetes mellitus with other diabetic kidney complication E11.29 and halfway current use of anticoagulant Z79.01 [place] [address] 72066- 6528 Apr, Chronic pain syndrome G89.4 and Essential hypertension I10 [place] [id number] [place] [address] 61800- 9548 Apr, Type 2 diabetes mellitus with other diabetic kidney complication E11.29 [facility] [id number] [place] [address] 10136- 5062 Apr, Type 2 diabetes mellitus with other diabetic kidney complication E11.29 [place] [id number] [place] [address] 50263- 7407 Apr, Essential hypertension I10 [facility] [id number] [place] [address] 55354- 8187 Apr, Gastroesophageal reflux disease without esophagitis K21.9 [facility] [id number] [place] [address] 49145- 0416 Apr, Type 2 diabetes mellitus with other diabetic kidney complication E11.29 [facility] [id number] [place] [address] 11934- 9667 Apr, Type 2 diabetes mellitus with other diabetic kidney complication E11.29 and halfway current use of anticoagulant Z79.01 [facility] [id number] [place] [address] 03125- 8998 Mar, Encounter for immunization Z23 and Preoperative examination Z01.818 [facility] [id number] [place] [address] 32807- 9538 Mar, [place] [id number] [place] [address] 29543- 7616 Mar, Type 2 diabetes mellitus with other diabetic kidney complication E11.29 [facility] [id number] [place] [address] 22515- 2546 Mar, Type 2 diabetes mellitus with other diabetic kidney complication E11.29 [place] [id number] [place] [address] 44741- 4452 Mar, Gastroesophageal reflux disease without esophagitis K21.9 [place] [id number] [place] [address] 26818- 6648 Mar, Essential hypertension I10 [place] [address] 96055- 7041 Feb, 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 [place] [id number] [place] [address] 41641- 3403 Feb, Type 2 diabetes mellitus with other diabetic kidney complication E11.29 [place] [id number] [place] [address] 21728- 0182 Feb, Type 2 diabetes mellitus with other diabetic kidney complication E11.29 [place] [id number] [place] [address] 05877- 8015 Feb, Type 2 diabetes mellitus with other diabetic kidney complication E11.29 [place] [id number] [place] [address] 20740- 2668 Feb, Gastroesophageal reflux disease without esophagitis K21.9 [facility] [id number] [place] [address] 97246- 2544 Feb, Type 2 diabetes mellitus with other diabetic kidney complication E11.29 [place] [id number] [place] [address] 04944- 6273 01 Aug, 2017 halfway current use of anticoagulant Z79.01 [facility] [address] [address]- 5854 Jan, 2017 Type 2 diabetes mellitus with other diabetic kidney complication E11.29 [facility] [address] [address] 2546 Jan, Type 2 diabetes mellitus with other diabetic kidney complication E11.29 [facility] [id number] [place] [address] 33018- 6161 Jan, Chronic pain syndrome G89.4 [facility] [address] [address]- 1577 Jan, [facility] [id number] [place] [address] 18713- 0895 Jan, [facility] [id number] [place] [address] 46682- 4162 Jan, [facility] [id number] [place] [address] 64765- 0068 Jan, [facility] [address] [place] [address] 08447- 2942 Jan, Primary insomnia F51.01 ; Type 2 diabetes mellitus with other diabetic kidney complication E11.29 ; Chronic pain syndrome G89.4 and Essential hypertension I10 [facility] [address] [address]- 2470 Jan, Primary insomnia F51.01 [facility] [address] [address]- 7615 Jan, Type 2 diabetes mellitus with other diabetic kidney complication E11.29 [facility] [address] [address]- 6273 Jan, [facility] [address] [address]- 3222 Jan, Chronic obstructive pulmonary disease, unspecified COPD type J44.9 [facility] [id number] [place] [address] 32337- 2848 Jan, Essential hypertension I10 ; Type 2 diabetes mellitus with other diabetic kidney complication E11.29 ; Chronic obstructive pulmonary disease, unspecified COPD type J44.9 ; Chronic kidney disease, stage 4 (severe) N18.4 ; Right carpal tunnel syndrome G56.01 ; 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 ; termite inspector (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 and Diabetic polyneuropathy associated with type 2 diabetes mellitus E11.42 [facility] [id number] [place] [address] 60615- 5720 Jan, Gastroesophageal reflux disease without esophagitis K21.9 [facility] [id number] [place] [address] 40997- 6619 Dec, [facility] [id number] [place] [address] 57897- 8565 Dec, [facility] [id number] [place] [address] 06675- 4379 Dec, halfway current use of anticoagulant Z79.01 ; Chronic pain syndrome G89.4 and Essential hypertension I10 [facility] [id number] [place] [address] 12671- 5032 Dec, [facility] [id number] [place] [address] 55238- 8996 Dec, Type 2 diabetes mellitus with other diabetic kidney complication E11.29 [facility] [id number] [place] [address] 57037- 1413 Dec, [facility] [id number] [place] [address] 50356- 4712 Dec, Gastroesophageal reflux disease without esophagitis K21.9 [facility] [id number] [place] [address] 35533- 6761 November, Type 2 diabetes mellitus with other diabetic kidney complication E11.29 [facility] [id number] [place] [address] 43965- 2238 November, [place] [address] [address]- 1515 November, Type 2 diabetes mellitus with other diabetic kidney complication E11.29 [facility] [address] [address]- 7586 November, [facility] [address] [address]- 5782 November, Type 2 diabetes mellitus with other diabetic kidney complication E11.29 [facility] [address] [address]- 7519 November, [facility] [id number] [place] [address] 48321- 7596 Oct, Essential hypertension I10 [facility] [id number] [place] [address] 43272- 2156 Oct, Psoriasis of scalp L40.9 [facility] [id number] [place] [address] 14528- 2541 Oct, Essential hypertension I10 and Chronic pain syndrome G89.4 [facility] [address] [place] [address] 10656- 8084 Oct, [facility] [address] [address]- 9986 Sep, Type 2 diabetes mellitus with other diabetic kidney complication E11.29 [facility] [address] [address]- 2813 Sep, [facility] [address] [address]- 2547 Sep, Type 2 diabetes mellitus with other diabetic kidney complication E11.29 [facility] [address] 7166 Sep, Type 2 diabetes mellitus with other diabetic kidney complication E11.29 [facility] [address] [address]- 3362 09 Mar, 2017 Type 2 diabetes mellitus with other diabetic kidney complication E11.29 ; Chronic kidney disease, stage 4 (severe) N18.4 ; Chronic obstructive pulmonary disease, unspecified COPD type J44.9 ; Iron deficiency anemia due to chronic blood loss D50.0 ; halfway current use of anticoagulant Z79.01 ; Gastroesophageal reflux disease without esophagitis K21.9 ; Essential hypertension I10 ; Primary insomnia F51.01 ; Depression, unspecified depression type F32.9 ; Chronic pain syndrome G89.4 ; Wrist pain, right M25.531 ; Paresthesia of right upper extremity R20.2 and Psoriasis of scalp L40.9 [place] [id number] [place] [address] 99796- 2384 Sep, [place] [address] 18463- 6847 Aug, Essential hypertension I10 [address] 27496- 2632 Aug, History of DVT (deep vein thrombosis) Z86.718 [place] [id number] [place] [address] 27522- 4454 Aug, [place] [address] 19662- 5942 Jul, [place] [id number] [place] [address] 03796- 9976 Jul, [place] [id number] [place] [address] 42959- 2308 Jul, 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 ; Chronic pain syndrome G89.4 and Chronic kidney disease, stage 4 (severe) N18.4 [place] [address] 62397- 8082 Jul, [place] [id number] [place] [address] 72694- 9272 Jul, [place] [address] 67081- 4059 Jul, [place] [address] [address]- 8448 Jul, [place] [id number] [place] [address] 65976- 8068 Jul, [place] [id number] [place] [address] 61804- 6712 Jul, Type 2 diabetes mellitus with other diabetic kidney complication E11.29 [place] [id number] [place] [address] 73987- 3534 16 Jul, 2016 History of DVT (deep vein thrombosis) Z86.718 [place] [id number] [place] [address] 27055- 6965 Jun, [place] [id number] [place] [address] 99144- 0098 Jun, History of DVT (deep vein thrombosis) Z86.718 [place] [address] [place] [address] 70928- 3926 15 Jun, 2016 Post traumatic stress disorder (PTSD) F43.10 [place] [id number] [place] [address] 41214- 8187 07 Jun, 2016 Type 2 diabetes mellitus with other diabetic kidney complication E11.29 ; Diabetic polyneuropathy associated with type 2 diabetes mellitus E11.42 ; Iron deficiency anemia due to chronic blood loss D50.0 ; Chronic obstructive pulmonary disease, unspecified COPD type J44.9 ; 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 ; [...] pain M79.641 and Right wrist pain M25.531 [facility] [address] [place] [id number] [address]- 5935 28 May, 2016 [facility] [id number] [place] [address], [place] [address]- 5506 May, [facility] [address] [address] 2548 May, [facility] [id number] [place] [address], [place] [address]- 4961 15 May, 2016 [facility] [address] [place] [address], [place] [address]- 2363 May, Anemia in other chronic diseases classified elsewhere D63.8 [facility] [address] [place] [address], [place] [address]- 5545 May, [facility] [id number] [place] [address] 89628- 0353 Apr, [facility] [address] [place] [address], [place] [address]- 8772 27 Mar, 2016 Dermatofibroma D23.9 [facility] [id number] [place] [address], [place] [address]- 9170 20 Mar, 2016 [facility] [address] [address]- 2549 14 Mar, 2016 Chronic pain syndrome G89.4 [facility] [address] [address] 2547 09 Mar, 2016 [facility] [address] [address] 2543 07 Mar, 2015 [facility] [id number] [place] [address], [place] [address] 2546 06 Mar, 2016 [facility] [address] [address] 2547 30 Feb, 2016 [facility] [id number] [place] [address] 96029- 5021 Feb, [facility] [address] [address]- 4342 Feb, [facility] [id number] [place] [address] 17633- 1598 Feb, [facility] [id number] [place] [address] 01667- 7448 Feb, [facility] [id number] [place] [address] 61000- 2824 Feb, [place] [id number] [place] [address] 14782- 0531 Feb, Type 2 diabetes mellitus with other diabetic kidney complication E11.29 ; Diabetic polyneuropathy associated with type 2 diabetes mellitus E11.42 ; Iron deficiency anemia due to chronic blood loss D50.0 ; Chronic obstructive pulmonary disease, unspecified COPD type J44.9 ; 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 ; History of DVT (deep vein thrombosis) Z86.718 ; Chronic pain syndrome G89.4 ; Oxygen desaturation during sleep G47.34 ; Sleep apnea in adult G47.33 ; Gastroesophageal reflux disease without esophagitis K21.9 ; Essential hypertension I10 ; Primary insomnia F51.01 ; Depression, unspecified depression type F32.9 and Renal failure, chronic, stage 4 (severe) N18.4 [facility] [id number] [place] [address] 05759- 5536 Feb, Skin tags, multiple acquired L91.8 [facility] [id number] [place] [address] 57189- 0767 Jan, [facility] [address] [place] [address] [id number] Jan, Dental examination Z01.20 [facility] [id number] [place] [address] 74687- 1840 Jan, [facility] [id number] [place] [address] 68575- 8324 Jan, Type 2 diabetes mellitus with other diabetic kidney complication E11.29 ; Diabetic polyneuropathy associated with type 2 diabetes mellitus E11.42 ; Iron deficiency anemia due to chronic blood loss D50.0 ; Chronic obstructive pulmonary disease, unspecified COPD type J44.9 ; 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 ; [...] failure, chronic, stage 4 (severe) N18.4 [facility] [id number] [place] [address] 49301- 3937 Dec, Diabetes type 2, uncontrolled E11.[address] 58419- 0192 Dec, [address] 36497- 4068 Dec, Type 2 diabetes mellitus with other diabetic kidney complication E11.29 ; Diabetic polyneuropathy associated with type 2 diabetes mellitus E11.42 ; Iron deficiency anemia due to chronic blood loss D50.0 ; Chronic obstructive pulmonary disease, unspecified COPD type J44.9 ; halfway current use of anticoagulant Z79.01 ; History of DVT (deep vein thrombosis) Z86.718 ; Chronic pain syndrome G89.4 ; Oxygen desaturation during sleep G47.34 ; Sleep apnea in adult G47.33 ; Gastroesophageal reflux disease without esophagitis K21.9 ; Essential hypertension I10 ; Primary insomnia F51.01 and Depression, unspecified depression type F32.9 [facility] [id number] [place] [address] [id number] Dec, Dental caries K02.9 [facility] [id number] [place] [address] [id number] Dec, [facility] [address] [place] [address] [id number] Dec, Dental examination Z01.20 [facility] [address] [id number] [id number] November, Dental examination Z01.20 and Dental caries K02.9 [facility] [id number] [place] [address] [id number] Oct, [facility] [address] [id number] [id number] Oct, [facility] [id number] [place] [address] [id number] Sep, [facility] [id number] [place] [address] [id number] Sep, [facility] [address] [id number] [place] [place] [address] [id number] Sep, [facility] [address] [id number] [place] [address] [id number] Sep, Other chronic pain 338.29 [facility] [id number] [place] [address] [id number] Aug, Diabetes type 2, uncontrolled E11.65 and Morbid obesity due to excess calories E66.01 [facility] [address] [id number] [place] [id number] Aug, Hair loss L65.9 [facility] [id number] [place] [address] [id number] Aug, [facility] [id number] [place] [address] [id number] Jul, [facility] [id number] [place] [address] [id number] Jul, [facility] [address] [id number] [place] [address] [id number] Jun, [facility] [id number] [place] [address] [id number] Jun, Hair loss L65.9 and Disorder of the skin and subcutaneous tissue, unspecified L98.9 [facility] [address] [id number] [place] [id number] May, Type 2 diabetes mellitus with other diabetic kidney complication E11.29 ; Type 2 diabetes mellitus with hyperglycemia E11.65 ; Morbid obesity due to excess calories E66.01 and Essential hypertension I10 [facility] [id number] [place] [address] [id number] May, Diabetes type 2, uncontrolled E11.65 ; Encounter for immunization Z23 and Morbid obesity due to excess calories E66.01 [facility] [id number] [place] [address] [id number] May, [facility] [address] [address]- [address] Apr, [facility] [id number] [place] [address] [id number] Apr, Hyperglycemia R73.[address] [id number] Apr, [id number] [place] [address] [id number] Apr, Depression F32.9 ; Encounter for immunization Z23 ; Hyperglycemia R73.9 and Anemia in other chronic diseases classified elsewhere D63.8 [facility] [address] [id number] [id number] Mar, [id number] [place] [address] [id number] Feb, Positive occult stool blood test 792.1 [id number] [place] [address] [phone] Feb, Depression 311 ; Other chronic pain 338.29 and Diabetes with renal manifestations, type II or unspecified type, not stated as uncontrolled 250.40 [facility] [address]00565100[place] [address] 0843 Feb, Occult blood in stools 792.1 [id number] [place] [address] [phone] Feb, Anemia 285.9 ; Occult blood positive stool 792.1 ; Unspecified essential hypertension 401.9 and Other chronic pain 338.29 [id number] [place] [address] [phone] Feb, [id number] [place] [address] [phone] Feb, Anemia 285.9 [facility] [id number] [place] [id number] Feb, [facility] [id number] [place] [address] [id number] Feb, [facility] [id number] [place] [id number] Feb, Diabetes with renal manifestations, type II or unspecified type, not stated as uncontrolled 250.40 ; Other chronic pain 338.29 ; Unspecified essential hypertension 401.9 ; Anemia 285.9 and Depression 311 [facility] [place] [id number] [place] [id number] Jan, [facility] [id number] [place] [address] [id number] Jan, Anemia 285.9 and Follow up V67.9 [facility] [place] [id number] [place] [id number] Jan, [facility] [place] [id number] [place] [address] [id number] Jan, [facility] [place] [id number] [place] [id number] Jan, [facility] [place] [id number] [place] [address] [id number] Dec, [facility] [address]00565100[place] [address] Oct, [facility] [id number] [place] [address] 78085 2546 Oct, [facility] [address]00565100[place] [address] 9070 Sep, [facility] [id number] [place] [id number] Sep, [facility] [id number] [place] [address] 47658 2546 Sep, [facility] [address] [id number] [place] [id number] Aug, [facility] [place] [facility] [address] [facility] [id number] [address]- 90[address] Aug, 2014 [facility] [place] [facility] [address] [facility] [id number] [address]- 7652 Aug, [facility] [address] [facility] [id number] [place] [id number] Aug, [facility] [place] [facility] [address] [facility] [id number] [place] [address]- 9517 Aug, [facility] [place] [facility] [address] [facility] [id number] [address]- 7821 Aug, [facility] [address] [facility] [id number] [place] [id number] Aug, [facility] [place] [facility] [address]00565100[place] [address]- 4096 Aug, [facility] [id number] [place] [id number] Jul, [facility] [place] [facility] [address] [facility] [id number] [address]- 0669 Jul, [facility] [place] [facility] [address]00565100[place] [address]- 6931 Jul, [facility] [address] [facility] [id number] [place] [id number] Jul, [facility] [place] [facility] [address] [facility] [id number] [address]- 7692 Jul, [facility] [address] [facility] [id number] [place] [id number] Jul, [facility] [place] [facility] [address] [facility] [id number] [address]- 2546 Jul, [facility] [address] [facility] [id number] [place] [id number] Jun, [facility] [address] [facility] [id number] [place] [id number] Jun, [facility] [place] [facility] [address] [id number] [address]- 3[address] Jun, [facility] [place] [facility] [address] [id number] [place] [address]- 4904 Jun, [facility] [address] [id number] [place] [id number] Jun, [facility] [place] [facility] [address] [facility] [id number] [address]- 6406 Jun, [facility] [address] [id number] [place] [id number] May, [facility] [place] [facility] [address] [facility] [id number] [place] [address]- 5369 May, [facility] [place] [facility] [address] [facility] [id number] [place] [address]- 9150 May, [facility] [address] [facility] [id number] [place] [id number] Apr, [facility] [place] [facility] [address] [facility] [id number] [address]- 0725 Apr, [facility] [address] [id number] [place] [id number] Apr, [facility] [address] [id number] [place] [id number] Apr, [facility] [place] [facility] [address] [facility] [id number] [address]- 5050 Apr, [facility] [place] [facility] [address] [facility] [id number] [address]- 9775 Apr, [facility] [address] [id number] [place] [id number] Mar, [facility] [place] [facility] [address] [id number] [address]- 0064 Mar, [facility] [address] [facility] [id number] [place] 034705313 Mar, [facility] [place] [facility] [address] [facility] [id number] [address]- 9521 Mar, [facility] [address] [id number] [place] [id number] Mar, [facility] [place] [facility] [address] [id number] [place] [address]- 2147 Mar, [facility] [address] [id number] [place] [id number] Mar, [facility] [place] [facility] [address] [facility] [id number] [place] [address]- 2391 Mar, [facility] [address] [id number] [place] [id number] Mar, [facility] [place] [facility] [address] [id number] [place] [address]- 5059 Mar, [facility] [address] [id number] [place] [id number] Feb, [facility] [place] [facility] [address] [facility] [id number][place] 129733- 7818 Feb, [facility] [address] [facility] [id number] [place] [id number] Jan, [facility] [place] [facility] [address] [facility] [id number][place] [address]- 4739 Jan, [facility] [address] [facility] [id number] [place] [id number] Jan, [facility] [place] [facility] [address] [facility] [id number] [address]- 0742 Jan, [facility] [address] [facility] [id number] [place] [id number] Jan, [facility] [place] [facility] [address] [facility] [id number] [address]- 7358 Jan, [facility] [place] [facility] [address] [facility] [id number] [place] [address]- 1714 Dec, [facility] [place] [facility] [address] [facility] [id number] [place] 09266812- 9824 Dec, [facility] [address] [id number] [place] [id number] November, [facility] [place] [facility] [address] [facility] [id number] [place] [address]- 0294 November, [facility] [address] [facility] [id number] [place] [id number] November, [facility] [place] [facility] [address] [facility] [id number] [place] [address]- 7671 November, [facility] [address] [facility] [id number] [place] [id number] Oct, [facility] [place] [facility] [address] [facility] [id number] [place] [address]- 0003 Oct, [facility] [place] [facility] [address] [facility] [id number] [place] 0493 Oct, [facility] [place] [facility] [address] [facility] [id number] [place] [address]- 1880 Oct, [facility] [place] [facility] [address] [id number] [address]- 5113 Oct, [facility] [place] [facility] [address] [facility] [id number] [place] [address]- 9395 Oct, [facility] [address] [facility] [id number] [place] [id number] Sep, [facility] [address] [facility] [id number] [place] 732769178 Sep, [facility] [place] [facility] [address] [facility] [id number] [address]- 0724 Sep, [facility] [place] [facility] [address] [facility] [id number] [address]- 3754 Sep, [facility] [address] [facility] [id number] [place] 968249654 Sep, [facility] [place] [facility] [address] [facility] [id number] [place]- 7489 Sep, [facility] [place] [facility] [address] [facility] [id number] [address]- 2397 Aug, [facility] [place] [facility] [address] [facility] [id number] [address]- 8806 Aug, [facility] [address] [id number] [place] [id number] Aug, [facility] [address] [facility] [id number] [place] 795805872 Aug, [facility] [place] [facility] [address] [facility] [id number] [place] [address]- 3196 Aug, [facility] [address] [facility] [id number] [place] [id number] Aug, [facility] [place] [facility] [address] [facility] [id number] [place] [address]- 2859 Aug, [facility] [address] [facility] [id number] [place] [id number] Aug, [facility] [place] [facility] [address]00565100[place] [address]- 1635 Aug, [facility] [address] [facility] [id number] [place] [id number] Aug, [facility] [place] [facility] [address] [id number] [address]- 4226 Aug, [facility] [address] [facility] [id number] [place] [id number] Aug, [facility] [place] [facility] [address]00565100[place] [address]- 2760 Aug, [facility] [place] [facility] [address]00565100[place] [address]- 7850 Jul, [facility] [address] [facility] [id number] [place] 305342650 Jun, [facility] [place] [facility] [address] [facility] [id number] [place] [address]- 4742 Jun, [facility] [place] [facility] [address] [id number]- 0635 Jun, [facility] [place] [facility] [address] [id number] [address]- 4964 Jun, [facility] [address] [facility] [id number] [place] 103184589 Jun, [facility] [place] [facility] [address] [facility] [id number] [place] [address] 2546 Jun, [facility] [place] [facility] [address] [facility] [id number] [address]- 2546 Jun, [facility] [address] [facility] [id number] [place] 475962647 Jun, [facility] [place] [facility] [address] [facility] [id number] [address]- 2546 Jun, [facility] [place] [facility] [address]00565100[facility] [address]- 9385 May, [facility] [address] [id number] [place] 561024509 May, [facility] [place] [facility] [address]00565100[place] [address]- 1924 May, [facility] [place] [facility] [address] [id number] [address]- 2146 May, [facility] [place] [facility] [address]00565100[place] [address]- 4744 May, [facility] [place] [facility] [address]00565100[place] [address]- 3181 May, [facility] [address] [facility] [id number] [place] 410217557 May, [facility] [place] [facility] [address] [facility] [id number] [address]- 2546 May, [facility] [address] [facility] [id number] [place] [id number] May, [facility] [place] [facility] [address] [id number] [address]- 7446 May, [facility] [address] [facility] [id number] [place] 431969069 Apr, [facility] [place] [facility] [address] [facility] [id number] [address]- 8774 Apr, [facility] [address] [id number] [address]- 9906 Apr, [facility] [address] [facility] [id number] [place] 296940665 Apr, [facility] [place] [facility] [address] [facility] [id number][place] [address]- 6650 Apr, [facility] [place] [facility] [address] [id number] [address]- 5497 Apr, [facility] [address] [facility] [id number] [place] 715317431 Apr, [facility] [place] [facility] [address] [id number][place] 171575- 8566 Apr, [facility] [place] [facility] [address] [id number] [address]- 8938 Apr, [facility] [place] [facility] [address] [facility] [id number] [address]- 2205 Apr, [facility] [address] [facility] [id number] [place] 795661562 Apr, [facility] [place] [facility] [address] [facility] [id number] [address]- 4784 Apr, [facility] [address] [facility] [id number] [place] 176285799 Apr, [facility] [place] [facility] [address] [facility] [id number] [address]- 2582 Apr, [facility] [address] [facility] [id number] [place] 843518013 Apr, [facility] [place] [facility] [address] [facility] [id number] [address]- 1971 Apr, [facility] [place] [facility] [address] [facility] [id number][place] [address]- 7113 Apr, [facility] [place] [facility] [address] [facility] [id number][place] [address]- 8024 Apr, [facility] [address] [id number] [place] [id number] Apr, [facility] [address] [facility] [id number][place] [address]- 2823 Mar, [facility] [address] [facility] [id number] [place] [address]- 2374 Mar, [facility] [address] [id number] [place] 625481717 Mar, [facility] [address] [id number] [place] 977214849 Mar, [facility] [address] [id number] [place] 002826170 Mar, [facility] [address] [id number] [place] 285766542 Feb, [facility] [address] [id number] [place] 099581691 Feb, [facility] [address] [id number] [place] 758825813 Feb, [facility] [address] [facility] [id number][place] [address]- 3976 Feb, [facility] [address] [id number] [place] [id number] Feb, [facility] [address] [id number] [place] 033060003 Feb, [facility] [address] [id number] [place] 333667425 Feb, [facility] [address] [id number] [place] 649942252 Feb, [facility] [address] [id number] [place] 512345977 Feb, [facility] [address] [id number] [place] 618575477 Jan, [facility] [address] [id number] [place] 566051435 Jan, [facility] [address] [id number] [place] 845162922 Jan, [facility] [address] [id number] [place] 724934092 Jan, [facility] [address] [id number] [place] 111048355 Jan, [facility] [address] [id number] [place] [address]- 2666 Jan, [facility] [address] [id number] [place] 283013042 Jan, [facility] [address] [id number] [place] 854581681 Jan, [facility] [address] [id number] [place] 090032953 Dec, [facility] [address] [id number] [place] 074253945 November, [facility] [address] [id number] [place] 577660368 November, [facility] [address] [id number] [place] 504141711 November, [facility] [address] [id number] [place] 412462173 November, [facility] [address] [id number] [place] 623925365 November, [facility] [address] [id number] [place] 490762654 November, [facility] [address] [id number] [place] 533373262 Jul, [facility] [address] [id number] [place] 648475843 Jul, [facility] [address] [id number] [place] [id number] Jul, [facility] [address] [id number] [place] [id number] Jun, [facility] [address] [id number] [place] [address]- 6456 Jun, [facility] [address] [id number] [place] 470353306 May, [facility] [place] [facility] [address] [facility] [id number][place] [address]- 5719 May, [facility] [address] [facility] [id number] [place] 544633598 May, [facility] [place] [facility] [address] [facility] [id number][place] [address]- 2858 May, [facility] [address] [facility] [id number] [place] [id number] May, [facility] [place] [facility] [address] [facility] [id number] [address]- 7884 May, [facility] [address] [facility] [id number] [place] 843500623 Apr, [facility] [place] [facility] [id number] [address] Apr, [facility] [place] [facility] [id number] [place] [address] Apr, [facility] [place] [address] [facility] [id number] [place] [id number] Apr, [facility] [place] [address] [facility] [id number] [place] [id number] Apr, [facility] [place] [facility] [id number] [address] Apr, [facility] [place] [facility] [address] [facility] [id number][place] [address] Apr, [facility] [place] [address] [id number] [place] [id number] Apr, [facility] [place] [facility] [address] [facility] [id number][place] [address] Apr, [facility] [place] [address] [id number] [place] [id number] Apr, [facility] [place] [address] [id number] [place] [id number] Apr, [facility] [place] [address] [id number] [place] [id number] Mar, [facility] [place] [address] [id number] [place] [id number] Feb, [facility] [place] [address] [id number] [place] [id number] Jan, [facility] [place] [address] [id number] [place] [id number] Dec, [facility] [place] [address] [id number] [place] [id number] Dec, [facility] [place] [address] [id number] [place] [id number] Dec, [facility] [place] [address] [id number] [place] [id number] Dec, [facility] [place] [address] [id number] [place] [id number] Dec, [facility] [place] [address] [id number] [place] [id number] November, [facility] [place] [address] [id number] [place] [id number] November, [facility] [place] [address] [id number] [place] [id number] November, [facility] [id number] [address] November, [facility] [place] [address] [id number] [place] [id number] November, [facility] [place] [address] [id number] [place] [id number] November, [facility] [place] [address] [id number] [place] [id number] Oct, [facility] [place] [address] [id number] [place] [id number] Oct, [facility] [place] [address] [id number] [place] [id number] Oct, [facility] [place] [address] [id number] [place] [id number] Oct, [facility] [place] [address] [id number] [place] [id number] Oct, [facility] [place] [address] [id number] [place] [id number] Oct, [facility] [place] [address] [id number] [place] [id number] Sep, [facility] [place] [address] [id number] [place] [id number] Aug, [facility] [place] [address] [id number] [place] [id number] Aug, [facility] [place] [address] [id number] [place] [id number] Jul, [facility] [place] [facility] [address] [id number] [place] [address]- [address] Jun, [facility] [place] [facility] [id number] [place] [address], [place] [address] Jun, [facility] [place] [facility] [id number] [place] [id number]- 2669 Jun, [facility] [place] [facility] [id number] [place] [address]695- 4437 Jun, [facility] [place] [facility] [id number] [address] May, [facility] [place] [facility] [id number] [place] [address]- [address] May, [facility] [place] [facility] [id number] [address] Apr, [facility] [place] [facility] [id number] [address] Apr, [facility] [place] [facility] [address] [facility] [id number] [address] Apr, [facility] [place] [facility] [id number] [place] [address]388- 1819 Feb, [facility] [place] [facility] [address] [facility] [id number][place] [address] 15 Aug, 2010 [facility] [place] [facility] [id number] [place] [address]- [address]81 Jul, [facility] [place] [facility] [address] [id number] [place] [address] 30 Jun, 2010 [facility] [place] [facility] [address] [id number] [place] [address] 2546 May, [facility] [place] [facility] [address] [id number] [place] [address] 2546 May, [facility] [place] [facility] [address] [id number] [place] [address] 2543 May, [facility] [place] [facility] [address] [id number] [place] [address] May, [facility] [place] [facility] [address] [id number] [place] [address] 2542 May, [facility] [place] [facility] [address] [id number] [place] [address] 9427 Aug, [facility] [facility] [facility] [address] [id number] [place] [address] Jun, [facility] [place] [facility] [address] [id number] [place] [address] Jun, [facility] [place] [facility] [address] [id number] [place] [address] Jun, [facility] [place] [facility] [address] [id number] [address] 24 May, 2009 [facility] [place] [facility] [address] [id number], [place] [address] 28 Apr, 2009 [facility] [place] [facility] [address] [id number] [place] [address] 27 Apr, 2009 [facility] [place] [facility] [address] [id number], [place] [address] 15 Apr, 2009 [facility] [place] [facility] [address] [id number] [place] [address] Jan, [facility] [place] [facility] [address] [facility] [id number] [place] [address] Oct, [facility] [address] [facility] [id number] [place] [address] May, [facility] [address] [facility] [id number] [place] [address] May, IMMUNIZATIONS No Known Immunizations SOCIAL HISTORY [...] Dialysis [facility] 2012 -Dr. Simon now [facility] Medical History Colonoscopy (polyps 2 ) [...]
[2017-12-22] MEDS ORDERED: RT-ALBUTEROL SULF 2.5 MG/3 ML PRE-MIX VIAL INH ONE (20:00)
--- OUTSIDE RECORDS SUMMARY | 2017-12-22 20:00 | XMS REPORT ---
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 Mechanic Telephone Name Role Phone HCELSY VILLAFANA Unavailable PROBLEMS Type Condition ICD9-CM Code UHE59-LX Code Onset Dates Condition Status SNOMED Code Problem Chronic pain syndrome G89.4 Active 741101634 Problem Type 2 diabetes mellitus with hyperglycemia E11.65 Active 754630428611458 Problem Primary insomnia F51.01 Active 1722252 Problem Bilateral lower extremity edema R60.0 Active 034719928 Problem Anemia in other chronic diseases classified elsewhere D63.8 Active 671297220 Problem Supplemental oxygen dependent Z99.81 Active 176219389819 Problem Right carpal tunnel syndrome G56.01 Active [id number] Problem 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 Active 164416752417616 Problem Paresthesia of right upper extremity R20.2 Active 83877464 Problem Chronic kidney disease, stage 4 (severe) N18.4 Active 188830702 Problem 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 022072101 Problem Psoriasis of scalp L40.9 Active 133794520 Problem Gastroesophageal reflux disease without esophagitis K21.9 Active 346603150 Problem Chronic obstructive pulmonary disease, unspecified COPD type J44.9 Active 01166068 Problem Type 2 diabetes mellitus with other diabetic kidney complication E11.29 Active 560683914 Problem Diabetic polyneuropathy associated with type 2 diabetes mellitus E11.42 Active 39227219 Problem History of DVT (deep vein thrombosis) Z86.718 Active 363987246 Problem jail current use of anticoagulant Z79.01 Active 177139315 Problem Oxygen desaturation during sleep G47.34 Active 367848676 Problem Essential hypertension I10 Active 38902740 Problem Depression, unspecified depression type F32.9 Active 68547219 Problem Sleep apnea in adult G47.33 Active 63250781 ALLERGIES No Information ENCOUNTERS Encounter Location Date Diagnosis [facility] [id number] [id number] Dec, [facility] [address], [place] [address] Dec, Essential hypertension I10 [facility] [address], [place] [address] November, Type 2 diabetes mellitus with other diabetic kidney complication E11.29 [facility] [id number], [place] [address] 6428 November, Chronic pain syndrome G89.4 [facility] [address], [place] [address] November, [facility] [id number] [place] [address] 15126- 1796 November, [facility] [id number] [place] [address] 71446- 5687 November, [facility] [id number] [place] [address] 27282- 3159 Oct, Type 2 diabetes mellitus with other diabetic kidney complication E11.29 [facility] [address], [place] [address] 0072 Oct, Primary insomnia F51.01 [facility] [id number] [id number] Oct, Bilateral lower extremity edema R60.0 [facility] [address], [place] [address] Oct, [facility] [address], [place] [address] 5169 Sep, Type 2 diabetes mellitus with other diabetic kidney complication E11.29 and Chronic obstructive pulmonary disease, unspecified COPD type J44.9 [facility] [address], [place] [address] 95[address] Aug, Type 2 diabetes mellitus with other diabetic kidney complication E11.29 [facility] [id number], [place] [address] 8226 12 Aug, 2017 Gastroesophageal reflux disease without esophagitis K21.9 ; 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 ; Chronic pain syndrome G89.4 ; Essential hypertension I10 and Type 2 diabetes mellitus with other diabetic kidney complication E11.29 [facility] [address] [place] [address] 89174- 3713 08 Aug, 2017 Chronic pain syndrome G89.4 [facility] [id number] [place] [address] 40211- 4809 Aug, Type 2 diabetes mellitus with other diabetic kidney complication E11.29 [place] [id number] [place] [address] 78410- 0178 Jul, Diabetic polyneuropathy associated with type 2 diabetes mellitus E11.42 [facility] [facility] [id number] [place] [address] 58969- 9615 Jul, Primary insomnia F51.01 [facility] [id number] [place] [address] 51766- 0871 Jul, [facility] [id number] [place] [address] 60483- 0898 Jul, Type 2 diabetes mellitus with other diabetic kidney complication E11.29 and Chronic obstructive pulmonary disease, unspecified COPD type J44.9 [facility] [address] [place] [address] 86761- 8813 Jul, Type 2 diabetes mellitus with other diabetic kidney complication E11.29 [facility] [id number] [place] [address] 48356- 0215 Jun, Type 2 diabetes mellitus with other diabetic kidney complication E11.29 [facility] [id number] [place] [address] 13806- 0626 Jun, [facility] [id number] [place] [address] 53474- 9198 Jun, Chronic obstructive pulmonary disease, unspecified COPD type J44.9 [facility] [place] [id number] [place] [address] 69871- 9423 May, Type 2 diabetes mellitus with other diabetic kidney complication E11.29 [place] [id number] [place] [address] 50262- 7348 May, 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 and Essential hypertension I10 [address] 02186- 8515 May, Anemia in other chronic diseases classified elsewhere D63.8 ; Chronic obstructive pulmonary disease, unspecified COPD type J44.9 ; Oxygen desaturation during sleep G47.34 ; Sleep apnea in adult G47.33 and Supplemental oxygen dependent Z99.[address] 02828- 4400 May, Type 2 diabetes mellitus with other diabetic kidney complication E11.29 ; Essential hypertension I10 ; Chronic pain syndrome G89.4 ; BMI 40.0-44.9, adult Z68.41 ; Gastroesophageal reflux disease without esophagitis K21.9 ; 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 ; jail 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 ; Diabetic polyneuropathy associated with type 2 diabetes mellitus E11.42 ; Edema of both legs R60.0 and Supplemental oxygen dependent Z99.81 [place] [id number] [place] [address] 21447- 4232 May, [place] [id number] [place] [address] 20346- 6392 May, Essential hypertension I10 and Gastroesophageal reflux disease without esophagitis K21.9 [place] [id number] [place] [address] 33979- 9070 May, [place] [id number] [place] [address] 76121- 7208 May, Type 2 diabetes mellitus with other diabetic kidney complication E11.29 and jail current use of anticoagulant Z79.01 [place] [id number] [place] [address] 56500- 8914 Apr, Chronic pain syndrome G89.4 and Essential hypertension I10 [facility] [id number] [place] [address] 94257- 1496 Apr, Type 2 diabetes mellitus with other diabetic kidney complication E11.29 [facility] [id number] [place] [address] 91136- 6959 Apr, Type 2 diabetes mellitus with other diabetic kidney complication E11.29 [place] [id number] [place] [address] 66808- 4262 Apr, Essential hypertension I10 [place] [facility] [id number] [place] [address] 34478- 1432 Apr, Gastroesophageal reflux disease without esophagitis K21.9 [place] [facility] [id number] [place] [address] 69868- 6841 Apr, Type 2 diabetes mellitus with other diabetic kidney complication E11.29 [facility] [facility] [id number] [place] [address] 09435- 8305 Apr, Type 2 diabetes mellitus with other diabetic kidney complication E11.29 and 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 [place] [id number] [place] [address] 12968- 7932 Mar, Encounter for immunization Z23 and Preoperative examination Z01.818 [place] [facility] [id number] [place] [address] 52823- 6383 Mar, [facility] [id number] [place] [address] 15594- 9237 Mar, Type 2 diabetes mellitus with other diabetic kidney complication E11.29 [place] [facility] [id number] [place] [address] 73833- 8513 Mar, Type 2 diabetes mellitus with other diabetic kidney complication E11.29 [facility] [id number] [place] [address] 37438- 4685 Mar, Gastroesophageal reflux disease without esophagitis K21.9 [facility] [id number] [place] [address] 09804- 2554 Mar, Essential hypertension I10 [facility] [address] [place] [address] 58856- 2141 Feb, 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 [facility] [address] [place] [address] 24114- 3097 Feb, Type 2 diabetes mellitus with other diabetic kidney complication E11.29 [facility] [id number] [place] [address] 33110- 2302 Feb, Type 2 diabetes mellitus with other diabetic kidney complication E11.29 [facility] [id number] [place] [address] 32057- 4879 Feb, Type 2 diabetes mellitus with other diabetic kidney complication E11.29 [facility] [id number] [place] [address] 33104- 5735 Feb, Gastroesophageal reflux disease without esophagitis K21.9 [facility] [id number] [place] [address] 21902- 9686 Feb, Type 2 diabetes mellitus with other diabetic kidney complication E11.29 [facility] [id number] [place] [address] 94706- 2712 Feb, 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 [facility] [address], [place] [address]- 8189 Jan, Type 2 diabetes mellitus with other diabetic kidney complication E11.29 [facility] [address], [place] [address]- 8587 Jan, Type 2 diabetes mellitus with other diabetic kidney complication E11.29 [facility] [address] [place] [address] 86496- 7771 Jan, Chronic pain syndrome G89.4 [facility] [address], [place] [address]- 0013 Jan, [facility] [id number] [place] [address] 88840- 6657 Jan, [facility] [address], [place] [address]- 8699 Jan, [facility] [address], [place] [address]- 5099 Jan, [facility] [address], [place] [address]- 3167 Jan, Primary insomnia F51.01 ; Type 2 diabetes mellitus with other diabetic kidney complication E11.29 ; Chronic pain syndrome G89.4 and Essential hypertension I10 [facility] [address], [place] [address]- 2544 Jan, Primary insomnia F51.01 [facility] [address], [place] [address]- 1232 Jan, Type 2 diabetes mellitus with other diabetic kidney complication E11.29 [facility] [address], [place] [address]- 6542 Jan, [facility] [address], [place] [address]- 0594 Jan, Chronic obstructive pulmonary disease, unspecified COPD type J44.9 [facility] [address], [place] [address]- 0700 Jan, Essential hypertension I10 ; Type 2 diabetes mellitus with other diabetic kidney complication E11.29 ; Chronic obstructive pulmonary disease, unspecified COPD type J44.9 ; Chronic kidney disease, stage 4 (severe) N18.4 ; Right carpal tunnel syndrome G56.01 ; 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 ; steam station supervisor (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 and Diabetic polyneuropathy associated with type 2 diabetes mellitus E11.42 [facility] [address], [place] [address]- 0331 Jan, Gastroesophageal reflux disease without esophagitis K21.9 [facility] [address], [place] [address]- 8548 Dec, [facility] [address], [place] [address]- 6321 Dec, [facility] [id number] [place] [address] 77830- 5142 Dec, jail current use of anticoagulant Z79.01 ; Chronic pain syndrome G89.4 and Essential hypertension I10 [facility] [id number] [place] [address] 89305- 4486 Dec, [facility] [id number] [place] [address] 33624- 4425 Dec, Type 2 diabetes mellitus with other diabetic kidney complication E11.29 [facility] [id number] [place] [address] 11191- 6707 Dec, [facility] [id number] [place] [address] 56580- 6445 Dec, Gastroesophageal reflux disease without esophagitis K21.9 [facility] [id number] [place] [address] 64252- 3552 November, Type 2 diabetes mellitus with other diabetic kidney complication E11.29 [facility] [id number], [place] [address]- 4858 November, [facility] [address] [place] [address] 81166- 0899 November, Type 2 diabetes mellitus with other diabetic kidney complication E11.29 [facility] [address], [place] [address]- 4259 November, [facility] [address], [place] [address]- 0007 November, Type 2 diabetes mellitus with other diabetic kidney complication E11.29 [facility] [address], [place] [address]- 4070 November, [facility] [address], [place] [address]- 2605 Oct, Essential hypertension I10 [place] [address] [place] [address] 29453- 7985 10 Oct, 2016 Psoriasis of scalp L40.9 [place] [id number] [place] [address] 79131- 1306 Oct, Essential hypertension I10 and Chronic pain syndrome G89.4 [place] [id number] [place] [address] 77401- 5810 Oct, [place] [id number] [place] [address] 22370- 3387 Sep, Type 2 diabetes mellitus with other diabetic kidney complication E11.29 [place] [id number] [place] [address] 51895- 6888 Sep, [place] [id number] [place] [address] 92739- 5320 Sep, Type 2 diabetes mellitus with other diabetic kidney complication E11.29 [place] [id number] [place] [address] 01271- 5927 Sep, Type 2 diabetes mellitus with other diabetic kidney complication E11.29 [place] [id number] [place] [address] 53203- 2698 Sep, Type 2 diabetes mellitus with other diabetic kidney complication E11.29 ; Chronic kidney disease, stage 4 (severe) N18.4 ; Chronic obstructive pulmonary disease, unspecified COPD type J44.9 ; Iron deficiency anemia due to chronic blood loss D50.0 ; 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 ; Gastroesophageal reflux disease without esophagitis K21.9 ; Essential hypertension I10 ; Primary insomnia F51.01 ; Depression, unspecified depression type F32.9 ; Chronic pain syndrome G89.4 ; Wrist pain, right M25.531 ; Paresthesia of right upper extremity R20.2 and Psoriasis of scalp L40.9 [address] [place] [address] 38334- 8028 Sep, [place] [id number] [place] [address] 86645- 2291 Aug, Essential hypertension I10 [facility] [id number] [place] [address] 70175- 4117 Aug, History of DVT (deep vein thrombosis) Z86.718 [facility] [id number] [place] [address] 47548- 8226 14 Aug, 2016 [facility] [address] 37853- 5362 Jul, [facility] [id number] [place] [address] 49261- 8163 Jul, [facility] [address] 60688- 6356 Jul, 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 ; Chronic pain syndrome G89.4 and Chronic kidney disease, stage 4 (severe) N18.4 [facility] [id number] [place] [address] 39154- 1978 Jul, [facility] [id number] [place] [address] 90789- 9275 Jul, [facility] [id number] [place] [address] 96639- 3873 Jul, [facility] [id number] [place] [address] 38277- 9313 Jul, [facility] [id number] [place] [address] 29648- 6806 Jul, [facility] [id number] [place] [address] 58566- 2696 Jul, Type 2 diabetes mellitus with other diabetic kidney complication E11.29 [facility] [id number] [place] [address] 26678- 3715 Jul, History of DVT (deep vein thrombosis) Z86.718 [facility] [id number] [place] [address] 66256- 1019 Jun, [place] [address], [place] [address]- 7441 19 Jun, 2016 History of DVT (deep vein thrombosis) Z86.718 [place] [address] [place] [address] 08073- 5161 15 Jun, 2016 Post traumatic stress disorder (PTSD) F43.10 [place] [id number] [place] [address] 33104- 7630 07 Jun, 2016 Type 2 diabetes mellitus [...] pain M79.641 and Right wrist pain M25.531 [place] [address] [place] [address] 62049- 1817 May, [place] [address] [place] [address] 82580- 4450 May, [place] [id number] [place] [address] 66157- 7258 May, [place] [id number] [place] [address] 74004- 2925 May, [place] [address] [place] [address] 00318- 3454 May, Anemia in other chronic diseases classified elsewhere D63.8 [place] [address] [place] [address]- 1634 02 May, 2016 [facility] [address] [facility] [id number] [place] [address]- 4351 Apr, [facility] [id number] [place] [address] 2546 27 Mar, 2015 Dermatofibroma D23.9 [facility] [address] [place] [address] 2546 20 Mar, 2015 [facility] [address] [facility] [id number] [place] [address] 2540 14 Mar, 2015 Chronic pain syndrome G89.4 [facility] [address] [place] [address] 2546 09 Mar, 2015 [facility] [address] [place] [address]- 2834 07 Mar, 2015 [facility] [address], [place] [address]- 4904 06 Mar, 2015 [facility] [id number] [place] [address]- 2985 30 Feb, 2016 [facility] [id number] [place] [address]- 6024 Feb, [facility] [id number] [place] [address]- 6505 Feb, [facility] [id number], [place] [address]- 0135 Feb, [facility] [address] [facility] [id number] [place] [address]- 2549 Feb, [facility] [address] [id number] [place] [address]- 3514 15 Feb, 2016 [facility] [id number] [place] [address]- 5574 Feb, 2016 Type 2 diabetes mellitus with [...] Renal failure, chronic, stage 4 (severe) N18.4 [place] [address] 60446- 1051 Feb, Skin tags, multiple acquired L91.8 [place] [address] 06450- 1683 Jan, [facility] [address] [id number] Jan, Dental examination Z01.20 [facility] [address] 05362- 3808 Jan, [place] [address] 35418- 5523 Jan, Type 2 diabetes mellitus with other [...] Renal failure, chronic, stage 4 (severe) N18.4 [place] [address] 14334- 3322 Dec, Diabetes type 2, uncontrolled E11.65 [facility] [address], [place] [address]- 9697 Dec, [facility] [address], [place] [address]- 3163 Dec, Type 2 diabetes mellitus with other diabetic kidney complication E11.29 ; Diabetic polyneuropathy associated with type 2 diabetes mellitus E11.42 ; Iron deficiency anemia due to chronic blood loss D50.0 ; Chronic obstructive pulmonary disease, unspecified COPD type J44.9 ; 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 ; History of DVT (deep vein thrombosis) Z86.718 ; Chronic pain syndrome G89.4 ; Oxygen desaturation during sleep G47.34 ; Sleep apnea in adult G47.33 ; Gastroesophageal reflux disease without esophagitis K21.9 ; Essential hypertension I10 ; Primary insomnia F51.01 and Depression, unspecified depression type F32.9 [facility] [id number] [place] [address] [id number] Dec, Dental caries K02.9 [facility] [id number] [place] [address] [id number] Dec, [facility] [address] [id number] Dec, Dental examination Z01.20 [facility] [id number] [place] [address] [id number] November, Dental examination Z01.20 and Dental caries K02.9 [facility] [address] [id number] [id number] Oct, [facility] [address] [id number] [id number] Oct, [facility] [id number] [place] [address] [id number] Sep, [facility] [id number] [place] [address] [id number] Sep, [facility] [id number] [place] [address] [id number] Sep, [facility] [address] [id number] [id number] Sep, Other chronic pain 338.29 [facility] [id number] [id number] Aug, Diabetes type 2, uncontrolled E11.65 and Morbid obesity due to excess calories E66.01 [facility] [id number][place] [id number] Aug, Hair loss L65.9 [facility] [place] [id number] [place] [address] [id number] Aug, [facility] [id number][place] [id number] Jul, [facility] [place] [id number] [place] [address] [id number] Jul, [facility] [place] [address] [id number] [place] [address] [id number] Jun, [facility] [place] [id number] [place] [address] [id number] Jun, Hair loss L65.9 and Disorder of the skin and subcutaneous tissue, unspecified L98.9 [facility] [place] [id number] [place] [address] [id number] May, Type 2 diabetes mellitus with other diabetic kidney complication E11.29 ; Type 2 diabetes mellitus with hyperglycemia E11.65 ; Morbid obesity due to excess calories E66.01 and Essential hypertension I10 [facility] [place] [id number] [place] [address] [id number] May, Diabetes type 2, uncontrolled E11.65 ; Encounter for immunization Z23 and Morbid obesity due to excess calories E66.01 [facility] [place] [id number], [place] [id number] May, [facility] [id number] [place] [address] [id number] 3020 Apr, [facility] [place] [id number] [place] [address] [id number] Apr, Hyperglycemia R73.9 [facility] [place] [id number], [place] 794680094 Apr, [facility] [id number], [place] [id number] Apr, Depression F32.9 ; Encounter for immunization Z23 ; Hyperglycemia R73.9 and Anemia in other chronic diseases classified elsewhere D63.8 [facility] [address] [id number] [place] [id number] Mar, [facility] [address]00565100[place], [place] [id number] Feb, Positive occult stool blood test 792.[id number] [place] [address] [id number] Feb, Depression 311 ; Other chronic pain 338.29 and Diabetes with renal manifestations, type II or unspecified type, not stated as uncontrolled 250.40 [facility] [address]00565100[place], [place] [address]80710- 5104 Feb, Occult blood in stools 792.[address]00565100[place], [place] [id number] Feb, Anemia 285.9 ; Occult blood positive stool 792.1 ; Unspecified essential hypertension 401.9 and Other chronic pain 338.29 [address]00565100[place], [place] [id number] Feb, [address]00565100[place], [place] 912145819 Feb, Anemia 285.9 [address]00565100[place], [place] [id number] Feb, [address]00565100[place], [place] [id number] Feb, [id number] [id number] Feb, Diabetes with renal manifestations, type II or unspecified type, not stated as uncontrolled 250.40 ; Other chronic pain 338.29 ; Unspecified essential hypertension 401.9 ; Anemia 285.9 and Depression 311 [address]00565100[place], [place] [id number] Jan, [id number] [place] [address] [id number] Jan, Anemia 285.9 and Follow up V67.9 [facility] [place] [address] [id number] [place] 810006498 Jan, [facility] [place] [address] [id number] [place] [id number] Jan, [facility] [place] [address] [facility] [id number] [place] 108732494 Jan, [facility] [place] [address] [id number] [place] [id number] Dec, [facility] [place] [facility] [address]00565100[place], [place] [address]- 8683 Oct, [facility] [place] [facility] [id number] [place] [address] 8[address]- 6502 Oct, [facility] [place] [facility] [address] [id number], [place] [address]- 5149 Sep, [facility] [place] [id number], [place] [id number] Sep, [facility] [place] [facility] [address]00565100[place], [place] 77376975- 2088 Sep, [facility] [place] [id number], [place] [id number] Aug, [facility] [place] [facility] [address]00565100[place], [place] [address]- 6156 Aug, [facility] [place] [facility] [address]00565100[place], [place] [address]- 8923 Aug, [facility] [place] [address] [id number], [place] 818985884 Aug, [facility] [place] [facility] [address]00565100[place], [place] [address]- 8473 Aug, [facility] [place] [facility] [address]00565100[place], [place] [address]- 6114 Aug, [facility] [place] [address] [id number], [place] [id number] Aug, [facility] [place] [facility] [address] [facility] [id number], [place] [address]- 1360 Aug, [facility] [place] [address] [facility] [id number] [place] [id number] Jul, [facility] [place] [facility] [address] [facility] [id number] [place] [address]- 5016 Jul, [facility] [place] [facility] [address] [facility] [id number] [place] [address]- 5138 Jul, [facility] [place] [address] [facility] [id number] [place] [id number] Jul, [facility] [place] [facility] [address] [facility] [id number] [place] [address]- 0009 Jul, [facility] [place] [address] [facility] [id number] [place] [id number] Jul, [facility] [address] [facility] [id number], [place] [address]- 9218 Jul, [facility] [place] [address] [facility] [id number], [place] [id number] Jun, [facility] [place] [address] [facility] [id number] [place] [id number] Jun, [facility] [place] [facility] [address] [id number], [place] [address]- 0061 Jun, [facility] [place] [facility] [address] [facility] [id number], [place] [address]- 7009 Jun, [facility] [place] [address] [facility] [id number], [place] [id number] Jun, [facility] [place] [facility] [address] [facility] [id number], [place] [address]- 2225 Jun, [facility] [place] [address] [facility] [id number], [place] [id number] May, [facility] [place] [facility] [address] [facility] [id number], [place] [address]- 9547 May, [facility] [place] [facility] [address] [facility] [id number], [place] [address]- 2368 May, [facility] [place] [address] [id number], [place] [id number] Apr, [facility] [place] [facility] [address] [facility] [id number] [place] [address]- 5963 Apr, [facility] [place] [address] [id number], [place] 959763200 Apr, [facility] [place] [address] [id number] [place] [id number] Apr, [facility] [place] [facility] [address] [facility] [id number], [place] [address]- 3827 Apr, [facility] [place] [facility] [address] [facility] [id number], [place] [address]- 6322 Apr, [facility] [place] [address] [facility] [id number], [place] 945898989 Mar, [facility] [place] [facility] [address]00565100[place], [place] [address]- 7141 Mar, [facility] [place] [address] [facility] [id number], [place] [id number] Mar, [facility] [place] [facility] [address] [facility] [id number], [place] 662167- 3719 Mar, [facility] [place] [address] [facility] [id number], [place] [id number] Mar, [facility] [place] [facility] [address] [facility] [id number], [place] [address]- 2492 Mar, [facility] [place] [address] [facility] [id number], [place] [id number] Mar, [facility] [place] [facility] [address] [facility] [id number], [place] [address]- 9529 Mar, [facility] [place] [address] [facility] [id number], [place] 121997910 Mar, [facility] [place] [facility] [address] [facility] [id number], [place] [address]- 4050 Mar, [facility] [place] [address] [facility] [id number], [place] 660875356 Feb, [facility] [place] [facility] [address] [id number] [place] [address]- 2546 Feb, [facility] [place] [address] [id number] [place] 805756034 Jan, [facility] [place] [facility] [address] [id number] [place] [address]- 2546 Jan, [facility] [place] [address] [id number] [place] [id number] Jan, [facility] [place] [facility] [address] [id number] [place] [address]- 5656 Jan, [facility] [place] [address] [id number] [place] [id number] Jan, [facility] [place] [facility] [address] [id number] [place] [address] 2546 Jan, [facility] [place] [facility] [address] [facility] [id number] [place] [address]- 2116 Dec, [facility] [place] [facility] [address] [id number] [place] [address]- 8907 Dec, [facility] [place] [address] [id number] [place] 016766604 November, [facility] [place] [facility] [address] [id number] [place] [address]- 0936 November, [facility] [place] [address] [id number] [place] 845251868 November, [facility] [place] [facility] [address] [id number] [place] [address]- 2546 November, [facility] [place] [address] [id number] [place] [id number] Oct, [facility] [place] [facility] [address] [id number] [place] [address]- 0816 Oct, [facility] [place] [facility] [address] [id number] [place] [address]- 3834 Oct, [facility] [place] [facility] [address] [facility] [id number], [place] [address]- 8342 Oct, [facility] [place] [facility] [address] [facility] [id number], [place] [address]- 9045 Oct, [facility] [place] [facility] [address] [facility] [id number], [place] [address]- 0926 Oct, [facility] [place] [address] [facility] [id number], [place] 609069903 Sep, [facility] [place] [address] [facility] [id number], [place] 119697293 Sep, [facility] [place] [facility] [address] [facility] [id number], [place] [address]- 4036 Sep, [facility] [place] [facility] [address]00565100[place], [place] [address]- 6109 Sep, [facility] [place] [id number], [place] 029223269 Sep, [facility] [place] [facility] [address]00565100[place], [place] [address]- 9146 Sep, [facility] [place] [facility] [address]00565100[place], [place] [address]- 6576 Aug, [facility] [place] [facility] [address]00565100[place], [place] [address]- 2838 Aug, [facility] [place] [address] [id number], [place] 894513339 Aug, [facility] [place] [address] [id number], [place] 029579469 Aug, [facility] [place] [facility] [address] [facility] [id number], [place] [address]- 9983 Aug, [facility] [place] [address] [facility] [id number], [place] [id number] Aug, [facility] [place] [facility] [address] [facility] [id number], [place] [address]- 5156 Aug, [facility] [place] [id number], [place] 194627694 Aug, [facility] [place] [facility] [address] [id number] [place] [address]- 2546 Aug, [facility] [place] [address] [facility] [id number] [place] [id number] Aug, [facility] [place] [facility] [address] [id number], [place] [address]- 2546 Aug, [facility] [place] [address] [facility] [id number], [place] 158244067 Aug, [facility] [place] [facility] [address] [id number] [place] [address]- 2546 Aug, [facility] [place] [facility] [address] [facility] [id number] [place] [address]- 2546 Jul, [facility] [place] [address] [id number], [place] 328582956 Jun, [facility] [place] [facility] [address]00565100[place], [place] [address]- 2546 Jun, [facility] [place] [facility] [address] [id number], [place] [address]- 0496 Jun, [facility] [place] [facility] [address] [facility] [id number], [place] [address]- 6896 Jun, [facility] [place] [address] [id number], [place] 896604644 Jun, [facility] [place] [facility] [address]00565100[place], [place] [address]- 2546 Jun, [facility] [place] [facility] [address] [id number], [place] [address]- 2546 Jun, [facility] [place] [address] [facility] [id number], [place] 654745508 Jun, [facility] [place] [facility] [address] [facility] [id number], [place] [address]- 2546 Jun, [facility] [place] [facility] [address] [facility] [id number], [place] [address]- 2546 May, [facility] [place] [address] [facility] [id number], [place] 206764977 May, [facility] [place] [facility] [address]00565100[place], [place] [address]- 6426 May, [facility] [place] [facility] [address] [id number] 013[place]- 2248 May, [facility] [place] [facility] [address]00565100[place], [place] [address]- 5409 May, [facility] [place] [facility] [address] [facility] [id number], [place] [address]- 5272 May, [facility] [place] [id number] [place] [address] [id number] May, [facility] [place] [facility] [address]00565100[place], [place] [address]- 7010 May, [facility] [place] [id number], [place] 625968015 May, [facility] [place] [facility] [address]00565100[place], [place] [address]- 7604 May, [facility] [place] [address] [id number], [place] 578056761 Apr, [facility] [place] [facility] [address]00565100[place], [place] [address]- 1472 Apr, [facility] [place] [facility] [address]00565100[place], [place] [address]- 7103 Apr, [facility] [place] [address] [facility] [id number], [place] 222028563 Apr, [facility] [place] [facility] [address] [facility] [id number], [place] [address]- 9338 Apr, [facility] [place] [facility] [address] [facility] [id number], [place] [address]- 9791 Apr, [facility] [place] [address] [facility] [id number], [place] 006947682 Apr, [facility] [place] [facility] [address]00565100[place], [place] [address]- 5632 Apr, [facility] [place] [facility] [address] [facility] [id number], [place] [address]- 0519 Apr, [facility] [address] [facility] [id number], [place] [address]- 2275 Apr, [facility] [place] [address] [id number], [place] [id number] Apr, [facility] [address] [facility] [id number], [place] [address]- 0417 Apr, [facility] [place] [address] [id number], [place] [id number] Apr, [facility] [address] [facility] [id number], [place] [address]- 0612 Apr, [facility] [place] [address] [id number], [place] 636553138 Apr, [facility] [place] [facility] [address] [facility] [id number], [place] 319497- 8339 Apr, [facility] [place] [facility] [address] [facility] [id number], [place] [address]- 0492 Apr, [facility] [address] [facility] [id number], [place] [address]- 3743 Apr, [facility] [place] [address] [id number], [place] 902679200 Apr, [facility] [place] [facility] [address] [facility] [id number], [place] [address]- 1432 27 Mar, 2013 [facility] [place] [facility] [address] [facility] [id number], [place] [address]- 3507 Mar, [facility] [place] [address] [id number], [place] 084161338 17 Mar, 2013 [facility] [place] [address] [id number], [place] 892203664 17 Mar, 2013 [facility] [place] [address] [id number], [place] 623781676 16 Mar, 2013 [facility] [place] [address] [id number] [place] [id number] Feb, [facility] [place] [address] [id number] [place] 439295781 Feb, [facility] [place] [address] [id number] [place] 409364659 Feb, [facility] [address] [facility] [id number] [place] 89048543- 6252 Feb, [facility] [place] [address] [id number] [place] 725749812 Feb, [facility] [place] [address] [id number] [place] 264767826 Feb, [facility] [place] [address] [id number] [place] 543142134 Feb, [facility] [place] [address] [id number] [place] 102998485 Feb, [facility] [place] [address] [id number] [place] 308029912 Feb, [facility] [place] [address] [id number] [place] 865711799 Jan, [facility] [place] [address] [id number] [place] 111612978 Jan, [facility] [place] [address] [id number] [place] 773924327 Jan, [facility] [place] [address] [id number] [place] 174422062 Jan, [facility] [place] [address] [id number] [place] 366118275 Jan, [facility] [address] [facility] [id number], [place] 22986961- 1335 Jan, [facility] [place] [address] [id number] [place] 831075792 Jan, [facility] [place] [address] [id number] [place] 668947921 Jan, [facility] [place] [address] [id number] [place] 697408594 Dec, [facility] [place] [address] [id number] [place] 688886997 November, [facility] [place] [address] [id number] [place] 518304038 November, [facility] [place] [address] [id number] [place] 015510639 November, [facility] [place] [address] [id number] [place] 294257166 November, [facility] [place] [address] [id number] [place] 301639983 November, [facility] [place] [address] [id number] [place] 459526874 November, [facility] [place] [address] [id number] [place] 200191237 Jul, [facility] [place] [address] [id number] [place] 710974650 Jul, [facility] [place] [address] [id number] [place] [id number] Jul, [facility] [place] [address] [id number] [place] [id number] Jun, [facility] [address]005[address]- 0446 Jun, [facility] [place] [address] [id number] [place] 139845223 May, [facility] [address]00565100[place], [place] 03587070- 6457 May, [facility] [place] [address] [id number], [place] 386299822 May, [facility] [place] [facility] [address] [facility] [id number], [place] 17438320- 2226 May, [facility] [place] [address] [id number], [place] 223073035 May, [facility] [place] [facility] [address] [id number] 91[place]- 3012 May, [facility] [place] [address] [id number] [place] 138853300 Apr, [facility] [place] [facility] [address]00565100[place], [place] [address]- 1148 Apr, [facility] [address] [facility] [id number], [place] [address]- 1123 Apr, [facility] [place] [address] [id number], [place] 548971221 Apr, [facility] [place] [address] [id number], [place] 350141374 Apr, [facility] [address] [facility] [id number], [place] [address]- 5359 Apr, [facility] [address] [facility] [id number], [place] [address]- 9900 Apr, [facility] [place] [address] [id number], [place] 106584352 Apr, [facility] [address] [facility] [id number], [place] [address]- 0801 Apr, [facility] [place] [address] [id number], [place] 806564826 Apr, [facility] [place] [address] [id number][place] [id number] Apr, [facility] [id number] [place] [id number] Mar, [facility] [place] [address] [id number][place] [id number] Feb, [facility] [place] [address] [id number][place] [id number] Jan, [facility] [place] [address] [id number], [place] [id number] Dec, [facility] [place] [address] [id number] [place] [id number] Dec, [facility] [place] [address] [id number][place] [id number] Dec, [facility] [place] [address] [id number][place] [id number] Dec, [facility] [place] [address] [id number][place] [id number] Dec, [facility] [place] [address] [id number] [place] [id number] November, [facility] [place] [address] [id number] [place] [id number] November, [facility] [place] [address] [id number] [place] [id number] November, [facility] [address], [place] [address] November, [facility] [place] [address] [id number] [place] [id number] November, [facility] [place] [address] [id number] [place] [id number] November, [facility] [place] [address] [id number] [place] [id number] Oct, [facility] [place] [address] [id number] [place] [id number] Oct, [facility] [place] [address] [id number] [place] [id number] Oct, [facility] [place] [address] [id number] [place] [id number] Oct, [facility] [place] [address] [id number] [place] [id number] Oct, [facility] [place] [address] [id number] [place] [id number] Oct, [facility] [place] [address] [id number] [place] [id number] Sep, [facility] [place] [address] [id number] [place] [id number] Aug, [facility] [place] [address] [id number] [place] [id number] Aug, [facility] [place] [address] [id number] [place] [id number] Jul, [facility] [id number] [id number] Jun, [facility] [address], [place] [address] Jun, [facility] [place] [facility] [address] [id number] [place] [address] Jun, [facility] [place] [facility] [address] [id number] [place] [address] Jun, [facility] [place] [facility] [address] [id number] [place] [address] May, [facility] [place] [facility] [address] [id number] [place] [address] May, [facility] [place] [facility] [address] [id number] [place] [address] Apr, [facility] [place] [facility] [address] [id number] [place] [address] Apr, [facility] [place] [facility] [address] [id number] [place] [address] Apr, [facility] [place] [facility] [address] [id number] [place] [address] Feb, [facility] [place] [facility] [address] [id number] [place] [address] Aug, [facility] [place] [facility] [address] [id number] [place] [address] Jul, [facility] [place] [facility] [address] [id number] [place] [address] Jun, [facility] [place] [facility] [address] [id number] [place] [address] May, [facility] [place] [facility] [address] [id number] [place] [address] May, [facility] [place] [facility] [address] [id number] [place] [address] May, [facility] [place] [facility] [address] [id number] [place] [address] May, [facility] [place] [facility] [address], [place] [address] May, [facility] [address], [place] [address] Aug, [facility] [address], [place] [address] Jun, [facility] [address], [place] [address] Jun, [facility] [id number], [place] [address] Jun, [facility] [id number] [place] [address] May, [facility] [id number] [place] [address] Apr, [facility] [address] [place] [id number] [place] [address] Apr, [facility] [address], [place] [address] Apr, [facility] [id number] [place] [address] Jan, [facility] [address], [place] [address] Oct, [facility] [address], [place] [address] May, [facility] [address], [place] [address] May, IMMUNIZATIONS No Known Immunizations SOCIAL HISTORY [...] Dialysis [facility] 2012 -Dr. Simon now [facility] Medical History Colonoscopy (polyps 2 ) [...]
--- NOTE | 2017-12-22 20:09 | Diagnostic Imaging Report ---
INDICATION: Chest pain. EXAMINATION: Upright portable AP view of the chest was obtained. COMPARISON: Study of 10/06/2017. FINDINGS: There is generalized cardiomegaly. Pulmonary vascularity is unremarkable. No pneumothorax or consolidation is identified. There is no evidence of significant pleural fluid. IMPRESSION: Stable cardiomegaly without other evidence of acute abnormality. Dictated by: Dictated on workstation # [id number]
--- OUTSIDE RECORDS SUMMARY | 2017-12-22 20:09 | XMS REPORT | Continuity of Care Document ---
Author Author [facility] Address Unknown Phone Unavailable Allergies Active Description [...] N/ A 12/11/2013 Yes Sulfa (Sulfonamide Antibiotics) [id number] Drug Allergy Unknown N/A 2013 Yes insulin aspart [id number] Drug Allergy Mild NAUSEA 07/24/2014 Medications There [...] 709.9 DERMATITIS OTHER SKIN DISORDERS 05/07/2008 HELLWIG SHINGLE WEAVER, KATLYN E 788.1 DYSURIA 05/07/2008 REAL DO, [...] KATLYN E 788.1 DYSURIA 05/07/2008 REAL DO, SHAYAN K 112.1 CANDIDIASIS VAGINAL 05/07/2008 REAL DO, [...] K 599.0 URINARY TRACT INFECTION 05/08/2008 HELVANESSA SHINGLE WEAVER, KATLYN E 599.0 URINARY TRACT INFECTION 05/08/2008 HEMANTH SHINGLE WEAVER, KATLYN E 599.0 URINARY TRACT INFECTION 05/08/2008 [...] DO, SHAYNA K V58.31 WOUND DRESSING 05/12/2008 [facility] SHINGLE WEAVER KATLYN E V58.31 WOUND DRESSING 05/12/2008 HELCRISTAL SHINGLE WEAVERJAMEL CarlSIE E V58.31 WOUND DRESSING 05/12/2008 REAL DO, SHAYNA K V58.31 WOUND DRESSING 05/12/2008 [facility] CarlSIE E V58.31 WOUND DRESSING 05/12/2008 REAL DO, SHAYNA K V58.31 WOUND DRESSING 05/12/2008 BRITT HINES, ROSSY Carl V58.31 WOUND DRESSING 05/12/2008 [facility] SHINGLE WEAVERJAMEL CarlSIE E V58.31 WOUND DRESSING 05/14/2008 AIMEE [...] K 278.01 OBESITY MORBID 05/14/2008 REAL DO, SHAYAN K 250.02 DIABETES MELLITUS POORLY CONTROLLED 05/14/2008 REAL DO, SHAYNA K 278.01 OBESITY MORBID 05/14/2008 REAL DO, SHANYA K 250.02 DIABETES MELLITUS POORLY CONTROLLED 05/14/2008 [...] AIMEE 729.5 PAIN IN LIMB 05/15/2008 AIMEE OCNKLIN MD 079.99 VIRAL SYNDROME 05/15/2008 AIMEE CONKLIN [...] 272.0 HYPERLIPIDEMIA SWETHA CLASSIFICATION TYPE IIA 07/16/2008 RELA DO, SHAYNA K 307.40 INSOMNIA 07/16/2008 REAL [...] REAL DO, SHAYNA K 307.40 INSOMNIA 07/16/2008 [facility] SHINGLE WEAVER, KATLYN E 272.0 HYPERLIPIDEMIA SWETHA CLASSIFICATION TYPE IIA 07/16/2008 [facility] KATLYN E 307.40 INSOMNIA 07/16/2008 REAL DO, SHAYNA K 272.0 HYPERLIPIDEMIA SWETHA CLASSIFICATION TYPE IIA 07/16/2008 REAL DO, SHAYNA K 307.40 INSOMNIA 07/16/2008 ROSSY DE LA TORRE MD N 272.0 HYPERLIPIDEMIA SWETHA CLASSIFICATION TYPE IIA 07/16/2008 ROSSY DE LA TORRE MD N 307.40 INSOMNIA 07/16/2008 [facility] KATLYN HARRINGTON E 272.0 HYPERLIPIDEMIA SWETHA CLASSIFICATION TYPE IIA 07/16/2008 [facility] LEN, KATLYN E 307.40 INSOMNIA 10/15/2008 AIMEE [...] SHAYNA K 401.1 ESSENTIAL HYPERTENSION BENIGN 10/15/2008 [facility] KATLYN E 278.00 OBESITY 10/15/2008 HELLWIG SHINGLE WEAVER, KATLYN E 401.1 ESSENTIAL HYPERTENSION BENIGN 10/15/2008 HELWIG SHINGLE WEAVER, KATLYN E 278.00 OBESITY 10/15/2008 [facility] SHINGLE WEAVER, KATLYN E 401.1 ESSENTIAL HYPERTENSION BENIGN 10/15/2008 REAL DO, SHAYNA K 278.00 OBESITY 10/15/2008 REAL DO, SHAYNA K 401.1 ESSENTIAL HYPERTENSION BENIGN 10/15/2008 [facility] KATLYN E 278.00 OBESITY 10/15/2008 [facility] SHINGLE WEAVER, KATLYN E 401.1 ESSENTIAL HYPERTENSION BENIGN 10/15/2008 REAL DO, SHAYNA K 278.00 OBESITY 10/15/2008 REAL DO, SHAYNA K 401.1 ESSENTIAL HYPERTENSION BENIGN 10/15/2008 ROSSY DE LA TORRE MD N 278.00 OBESITY 10/15/2008 ROSSY DE LA TORRE MD N 401.1 ESSENTIAL HYPERTENSION BENIGN 10/15/2008 [facility] KATLYN E 278.00 OBESITY 10/15/2008 [facility] SHINGLE WEAVER, KATLYN E 401.1 ESSENTIAL HYPERTENSION BENIGN 04/30/2009 [...] DO, SHAYNA K 270.7 HYPERGLYCEMIA 04/30/2009 JAY PARRY MD 251.1 HYPERINSULINISM 04/30/2009 JAY PARRY MD 270.7 HYPERGLYCEMIA 04/30/2009 REAL DO, SHAYNA K 251.1 HYPERINSULINISM 04/30/2009 REAL DO, SHAYNA K 270.7 HYPERGLYCEMIA 04/30/2009 REAL DO, SHAYNA K 251.1 HYPERINSULINISM 04/30/2009 REAL DO, SHAYNA K 270.7 HYPERGLYCEMIA 04/30/2009 RELA DO, SHAYNA K 251.1 HYPERINSULINISM 04/30/2009 REAL DO, SHAYNA K 270.7 HYPERGLYCEMIA 04/30/2009 JETHRO SHETH MD 251.1 HYPERINSULINISM 04/30/2009 JETHRO SHETH MD 270.7 HYPERGLYCEMIA 04/30/2009 JETHRO SHETH MD 251.1 HYPERINSULINISM 04/30/2009 JETHRO SHETH MD 270.7 HYPERGLYCEMIA 04/30/2009 REAL DO, SHAYNA K 251.1 HYPERINSULINISM 04/30/2009 REAL DO, SHAYNA K 270.7 HYPERGLYCEMIA 04/30/2009 HELLWIG SHINGLE WEAVER, KATLYN E 251.1 HYPERINSULINISM 04/30/2009 HELLWIG SHINGLE WEAVER, KATLYN E 270.7 HYPERGLYCEMIA 04/30/2009 HELLWIG SHINGLE WEAVER, KATLYN E 251.1 HYPERINSULINISM 04/30/2009 HELLWIG SHINGLE WEAVER, KATLYN E 270.7 HYPERGLYCEMIA 04/30/2009 REAL DO, SHAYNA K 251.1 HYPERINSULINISM 04/30/2009 REAL DO, SHAYNA K 270.7 HYPERGLYCEMIA 04/30/2009 HELLWIG SHINGLE WEAVER, KATLYN E 251.1 HYPERINSULINISM 04/30/2009 HELLWIG SHINGLE WEAVER, KATLYN E 270.7 HYPERGLYCEMIA 04/30/2009 REAL DO, SHAYNA K 251.1 HYPERINSULINISM 04/30/2009 REAL DO, SHAYNA K 270.7 HYPERGLYCEMIA 04/30/2009 ROSSY DE LA TORRE MD N 251.1 HYPERINSULINISM 04/30/2009 ROSSY DE LA TORRE MD N 270.7 HYPERGLYCEMIA 04/30/2009 HELLWIG SHINGLE WEAVER, KATLYN E 251.1 HYPERINSULINISM 04/30/2009 HELLWIG SHINGLE WEAVER, KATLYN E 270.7 HYPERGLYCEMIA 05/28/2009 AIMEE CONKLIN [...] 07/02/2009 JETHRO SHETH MD 724.5 BACKACHE 07/02/2009 JEHTRO SHETH MD 535.50 GASTRITIS 07/02/2009 JETHRO SHETH [...] PRIMARY - KNEE RIGHT 07/25/2009 HEMANTH HARRINGTON, KATLYN E 715.16 OSTEOARTHRITIS LOCALIZED PRIMARY [...] DO, SHAYNA K 285.9 ANEMIA UNSPECIFIED 08/06/2009 KATLYN SAXENA APRN E 285.9 ANEMIA UNSPECIFIED 08/06/2009 [...] E 280.9 ANEMIA IRON DEFICIENCY 08/20/2009 HEMANTH SHINGLE WEAVER, KATLYN E 844.2 SPRAINS AND STRAINS OF [...] (Lower) Leg Localized Swelling 10/03/2009 REAL DO, HSAYNA K 729.81 (Lower) Leg Localized Swelling 10/03/2009 JAY PARRY MD 729.81 (Lower) Leg Localized Swelling 10/03/2009 REAL DO, SHAYNA K 729.81 (Lower) Leg Localized Swelling 10/03/2009 JAY PARRY MD 729.81 (Lower) Leg Localized Swelling 10/03/2009 [...] 729.81 (Lower) Leg Localized Swelling 10/03/2009 HELLWIG SHINGLE WEAVER, KATLYN E 729.81 (Lower) Leg Localized Swelling 10/03/2009 HELLWIG SHINGLE WEAVER, KATLYN E 729.81 (Lower) Leg Localized Swelling 10/03/2009 REAL DO, SHAYNA K 729.81 (Lower) Leg Localized Swelling 10/03/2009 HELLWIG SHINGLE WEAVER, KATLYN E 729.81 (Lower) Leg Localized Swelling 10/03/2009 REAL DO, SHAYNA K 729.81 (LOWER) LEG LOCALIZED SWELLING 10/03/2009 ROSSY DE LA TORRE MD N 729.81 (LOWER) LEG LOCALIZED SWELLING 10/03/2009 HELLWIG SHINGLE WEAVER, KATLYN E 729.81 (LOWER) LEG LOCALIZED SWELLING [...] OF ALLERGY TO OTHER FOODS 05/26/2010 ELOYLCRISTAL SHINGLE WEAVERKATLYN 380.10 INFECTIVE OTITIS EXTERNA UNSPECIFIED 05/26/2010 HEMANTH [...] 786.05 SHORTNESS OF BREATH 07/03/2010 REAL DO, SHAYAN K 782.3 EDEMA 07/03/2010 REAL DO, SHAYNA [...] K 786.05 SHORTNESS OF BREATH 07/03/2010 HELLWIG SHINGLE WEAVER, KATLYN E 782.3 EDEMA 07/03/2010 HELLWIG SHINGLE WEAVER, KATLYN E 786.05 SHORTNESS OF BREATH 07/03/2010 HELLWIG SHINGLE WEAVER, KATLYN E 782.3 EDEMA 07/03/2010 HELLWIG SHINGLE WEAVER, KATLYN E 786.05 SHORTNESS OF BREATH 07/03/2010 REAL DO, SHAYNA K 782.3 EDEMA 07/03/2010 REAL DO, SHAYNA K 786.05 SHORTNESS OF BREATH 07/03/2010 HELLWIG SHINGLE WEAVER, KATLYN E 782.3 EDEMA 07/03/2010 [facility] SHINGLE WEAVER, KATLYN E 786.05 SHORTNESS OF BREATH 07/03/2010 ADDIE NOONAN, SHAYNA K 782.3 EDEMA 07/03/2010 REAL DO, SHAYNA K 786.05 SHORTNESS OF BREATH 07/03/2010 BRITT HINES, ROSSY N 782.3 EDEMA 07/03/2010 ROSSY DE LA TORRE MD N 786.05 SHORTNESS OF BREATH 07/03/2010 [facility] SHINGLE WEAVER, KATLYN E 782.3 EDEMA 07/03/2010 [facility] 786.05 SHORTNESS OF BREATH [...] K V67.9 UNSPECIFIED FOLLOW-UP EXAMINATION 07/22/2010 ELOYLCRISTAL SHINGLE WEAVER KATLYN E 780.52 insomnia 07/22/2010 HELLCRISTAL SHINGLE WEAVER, KATLYN E V67.9 UNSPECIFIED FOLLOW-UP EXAMINATION 07/22/2010 ELOYLCRISTAL SHINGLE WEAVER, KATLYN E 780.52 insomnia 07/22/2010 ELOYLCRISTAL SHINGLE WEAVER, KATLYN E V67.9 UNSPECIFIED FOLLOW-UP EXAMINATION 07/22/2010 REAL DO, SHAYNA K 780.52 insomnia 07/22/2010 REAL DO, SHAYNA K V67.9 UNSPECIFIED FOLLOW-UP EXAMINATION 07/22/2010 HELLCRISTAL SHINGLE WEAVER KATLYN E 780.52 insomnia 07/22/2010 HELLCRISTAL SHINGLE WEAVER, KATLYN E V67.9 UNSPECIFIED FOLLOW-UP EXAMINATION 07/22/2010 REAL DO, SHAYNA K 780.52 INSOMNIA 07/22/2010 REAL DO, SHAYNA K V67.9 UNSPECIFIED FOLLOW-UP EXAMINATION 07/22/2010 ROSSY DE LA TORRE MD 780.52 INSOMNIA 07/22/2010 ROSSY DE LA TORRE MD V67.9 UNSPECIFIED FOLLOW-UP EXAMINATION 07/22/2010 HELLCRISTAL SHINGLE WEAVER, KATLYN E 780.52 INSOMNIA 07/22/2010 HELLCRISTAL HARRINGTON [...] RESPIRATORY INFECTIONS OF UNSPECIFIED SITE 10/01/2010 HELLCRISTAL SHINGLE WEAVER, KATLYN E 465.9 ACUTE UPPER RESPIRATORY INFECTIONS OF UNSPECIFIED SITE 10/01/2010 HELLWIG SHINGLE WEAVER, KATLYN E 465.9 ACUTE UPPER RESPIRATORY INFECTIONS OF UNSPECIFIED SITE 10/01/2010 REAL DO, SHAYNA K 465.9 ACUTE UPPER RESPIRATORY INFECTIONS OF UNSPECIFIED SITE 10/01/2010 HELLWIG SHINGLE WEAVER, KATLYN E 465.9 ACUTE UPPER RESPIRATORY INFECTIONS OF UNSPECIFIED SITE 10/01/2010 REAL DO, SHAYNA K 465.9 ACUTE UPPER RESPIRATORY INFECTIONS OF UNSPECIFIED SITE 10/01/2010 BRITT HINES, ROSSY Carl 465.9 ACUTE UPPER RESPIRATORY INFECTIONS OF UNSPECIFIED SITE 10/01/2010 HELLWIG SHINGLE WEAVER, KATLYN E 465.9 ACUTE UPPER RESPIRATORY INFECTIONS [...] DO, SHAYNA K 786.2 COUGH 10/03/2010 HELJannethWIG SHINGLE WEAVER, KATLYN E 780.79 feeling weak 10/03/2010 HEMANTH SHINGLE WEAVER, KATLYN E 786.2 COUGH 10/03/2010 HEMANTH HARRINGTON KATLYN E 780.79 feeling weak 10/03/2010 HELLCRISTAL SHINGLE WEAVER, KATLYN E 786.2 COUGH 10/03/2010 REAL DO, SHAYNA K 780.79 feeling weak 10/03/2010 REAL DO, SHAYNA K 786.2 COUGH 10/03/2010 HELLWIG SHINGLE WEAVER, KATLYN E 780.79 feeling weak 10/03/2010 HELLWIG SHINGLE WEAVER, KATLYN E 786.2 COUGH 10/03/2010 REAL DO, SHAYNA K 780.79 FEELING WEAK 10/03/2010 REAL DO, SHAYNA K 786.2 COUGH 10/03/2010 ROSSY DE LA TORRE MD 780.79 FEELING WEAK 10/03/2010 ROSSY DE LA TORRE MD 786.2 COUGH 10/03/2010 HELLCRISTAL SHINGLE WEAVER, KATLYN E 780.79 FEELING WEAK 10/03/2010 HELVANESSA [...] SHAYNA K 251.2 HYPOGLYCEMIA UNSPECIFIED 02/20/2011 JAY PARRY MD 251.2 HYPOGLYCEMIA UNSPECIFIED 02/20/2011 REAL DO, SHAYNA K 251.2 HYPOGLYCEMIA UNSPECIFIED 02/20/2011 JAY PARRY MD 251.2 HYPOGLYCEMIA UNSPECIFIED 02/20/2011 REAL DO, [...] SHAYNA K 780.4 lightheadedness 02/26/2011 REAL DO, SHANYA K 380.4 IMPACTED CERUMEN 02/26/2011 REAL DO, [...] DO, SHAYNA K 780.4 lightheadedness 02/26/2011 ELOYCRISTAL SHINGLE WEAVER, KATLYN E 380.4 IMPACTED CERUMEN 02/26/2011 [facility] KATLYN E 780.4 lightheadedness 02/26/2011 ELOYCRISTAL SHINGLE WEAVER, KATLYN E 380.4 IMPACTED CERUMEN 02/26/2011 ELOYCRISTAL SHINGLE WEAVER, KATLYN E 780.4 lightheadedness 02/26/2011 REAL DO, SHAYNA K 380.4 IMPACTED CERUMEN 02/26/2011 REAL DO, SHAYNA K 780.4 lightheadedness 02/26/2011 [facility] KATLYN E 380.4 IMPACTED CERUMEN 02/26/2011 [facility] SHINGLE WEAVER, KATLYN E 780.4 lightheadedness 02/26/2011 REAL DO, SHAYNA K 380.4 IMPACTED CERUMEN 02/26/2011 REAL DO, SHAYNA K 780.4 LIGHTHEADEDNESS 02/26/2011 ROSSY DE LA TORRE MD N 380.4 IMPACTED CERUMEN 02/26/2011 ROSSY DE LA TORRE MD N 780.4 LIGHTHEADEDNESS 02/26/2011 [facility] SHINGLE WEAVER, KATLYN E 380.4 IMPACTED CERUMEN 02/26/2011 [facility] SHINGLE WEAVER, KATLYN E 780.4 LIGHTHEADEDNESS 05/27/2011 AIMEE CONKLIN MD 724.3 SCIATICA 05/27/2011 AIMEE CONKLIN MD [...] TYPE 2 - UNCOMPLICATED, CONTROLLED 06/30/2011 HELLWIG SHINGLE WEAVER, KATLYN E 250.00 DIABETES MELLITUS TYPE 2 - UNCOMPLICATED, CONTROLLED 06/30/2011 [facility] KATLYN E 250.00 DIABETES MELLITUS TYPE 2 - UNCOMPLICATED, CONTROLLED 06/30/2011 REAL DO, SHAYNA K 250.00 DIABETES MELLITUS TYPE 2 - UNCOMPLICATED, CONTROLLED 06/30/2011 [facility], KATLYN E 250.00 DIABETES MELLITUS TYPE 2 - UNCOMPLICATED, CONTROLLED 06/30/2011 REAL DO, SHAYNA K 250.00 DIABETES MELLITUS TYPE 2 - UNCOMPLICATED, CONTROLLED 06/30/2011 BRITT HINES, ROSSY N 250.00 DIABETES MELLITUS TYPE 2 - UNCOMPLICATED, CONTROLLED 06/30/2011 [facility] KATLYN E 250.00 DIABETES MELLITUS TYPE 2 [...] pleasure from usual activities (anhedonia) 11/06/2011 JAY PARRY MD 780.99 loss of pleasure from usual activities (anhedonia) 11/06/2011 REAL DO, SHAYNA K 780.99 loss of pleasure from usual activities (anhedonia) 11/06/2011 JAY PARRY MD 780.99 loss of pleasure from usual [...] PLEASURE FROM USUAL ACTIVITIES (ANHEDONIA) 11/06/2011 HELLWIG SHINGLE WEAVER, KATLYN E 780.99 LOSS OF PLEASURE FROM [...] REAL DO, SHAYNA K 272.4 HYPERLIPIDEMIA 12/29/2011 RELA DO, SHAYNA K [...] screening exam malignant neoplasm breast 04/12/2012 HELLWIG SHINGLE WEAVER, KATLYN E 401.9 ESSENTIAL HYPERTENSION 04/12/2012 [facility] SHINGLE WEAVER, KATLYN E 799.21 feeling nervous 04/12/2012 [facility] KATLYN E V76.10 visit for: screening exam malignant neoplasm breast 04/12/2012 [facility] SHINGLE WEAVER, KATLYN E 401.9 ESSENTIAL HYPERTENSION 04/12/2012 [facility] SHINGLE WEAVER, KATLYN E 799.21 feeling nervous 04/12/2012 [facility] LEN KATLYN E V76.10 visit for: screening exam malignant neoplasm breast 04/12/2012 REAL DO, SHAYNA K 401.9 ESSENTIAL HYPERTENSION 04/12/2012 REAL DO, SHAYNA K 799.21 feeling nervous 04/12/2012 REAL DO, SHAYNA K V76.10 visit for: screening exam malignant neoplasm breast 04/12/2012 [facility] KATLYN E 401.9 ESSENTIAL HYPERTENSION 04/12/2012 [facility] LEN, KATLYN E 799.21 feeling nervous 04/12/2012 [facility] LEN KATLYN E V76.10 visit for: screening exam malignant neoplasm breast 04/12/2012 REAL DO, SHAYNA K 401.9 ESSENTIAL HYPERTENSION 04/12/2012 RELA DO, SHAYNA K 799.21 FEELING NERVOUS 04/12/2012 REAL DO, SHAYNA K V76.10 VISIT FOR: SCREENING EXAM MALIGNANT NEOPLASM BREAST 04/12/2012 ROSSY DE LA TORRE MD 401.9 ESSENTIAL HYPERTENSION 04/12/2012 ROSSY DE LA TORRE MD 799.21 FEELING NERVOUS 04/12/2012 ROSSY DE LA TORRE MD V76.10 VISIT FOR: SCREENING EXAM MALIGNANT NEOPLASM BREAST 04/12/2012 HELLCRISTAL SHINGLE WEAVER, KATLYN E 401.9 ESSENTIAL HYPERTENSION 04/12/2012 [facility] LEN KATLYN E 799.21 FEELING NERVOUS 04/12/2012 [...] joint pain in both knees 04/22/2012 JAY PARRY MD 719.46 joint pain in both knees 04/22/2012 REAL DO, SHAYNA K 719.46 joint pain in both knees 04/22/2012 JAY PARRY MD 719.46 joint pain in both knees 04/22/2012 RELA DO, SHAYNA K 719.46 joint pain in [...] HINES, ROSSY Carl 793.80 ABNORMAL MAMMOGRAM 05/14/2012 [facility] APRNSIE E 793.80 ABNORMAL MAMMOGRAM 12/06/2012 [...] K 338.29 CHRONIC PAIN 12/06/2012 REAL DO, SHAYAN K 799.22 Mood Irritable 12/06/2012 REAL DO, [...] [place]ton 584.9 ACUTE RENAL FAILURE 01/18/2013 JAY PARRY MD V68.01 visit for: issue medical certificate [...] for: issue medical certificate disability 01/18/2013 HEMANTH SHINGLE WEAVER, KATLYN E 584.9 ACUTE RENAL FAILURE 01/18/2013 [...] K 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 KNEES BOTH 01/25/2013 JAY PARRY MD 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 KNEES BOTH 01/25/2013 REAL DO, SHAYNA K 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 KNEES BOTH 01/25/2013 JAY PARRY MD 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 KNEES BOTH 01/25/2013 REAL [...] E 787.01 NAUSEA WITH VOMITING 04/19/2013 HEMANTH SHINGLE WEAVER, KATLYN E 789.00 ABDOMINAL PAIN UNSPECIFIED SITE 04/19/2013 HEMANTH HARRINGTON KATLYN E 787.01 NAUSEA WITH VOMITING 04/19/2013 ELOYLCRISTAL HARRINGTON KATLYN E 789.00 ABDOMINAL PAIN UNSPECIFIED SITE 04/19/2013 REAL DO, SHAYNA K 787.01 NAUSEA WITH VOMITING 04/19/2013 REAL DO, SHAYNA K 789.00 ABDOMINAL PAIN UNSPECIFIED SITE 04/19/2013 HEMANTH HARRINGTON KATLYN E 787.01 NAUSEA WITH VOMITING 04/19/2013 HEMANTH SHINGLE WEAVER, KATLYN E 789.00 ABDOMINAL PAIN UNSPECIFIED SITE [...] SUPERFICIAL VEINS OF UPPER EXTREMITY 05/03/2013 JAY PARRY MD 453.81 ACUTE VENOUS EMBOLISM AND THROMBOSIS OF SUPERFICIAL VEINS OF UPPER EXTREMITY 05/03/2013 ADDIE NOONAN SHAYNA K 453.81 ACUTE VENOUS EMBOLISM AND THROMBOSIS OF SUPERFICIAL VEINS OF UPPER EXTREMITY 05/03/2013 JAY PARRY MD 453.81 ACUTE VENOUS EMBOLISM AND THROMBOSIS [...] OF SUPERFICIAL VEINS OF UPPER EXTREMITY 05/03/2013 KALTYN SAXENA APRN 453.81 ACUTE VENOUS EMBOLISM AND [...] K V43.65 KNEE JOINT REPLACEMENT 08/16/2013 HELLWIG SHINGLE WEAVER KATLYN E 719.45 PAIN IN JOINT INVOLVING PELVIC REGION AND THIGH 08/16/2013 HELLCRISTAL SHINGLE WEAVER KATLYN E 724.8 OTHER SYMPTOMS REFERABLE TO BACK 08/16/2013 HELLWIG SHINGLE WEAVER KATLYN E V43.65 KNEE JOINT REPLACEMENT 08/16/2013 HELLWIG SHINGLE WEAVER KATLYN E 719.45 PAIN IN JOINT INVOLVING PELVIC REGION AND THIGH 08/16/2013 HELLWIG SHINGLE WEAVER KATLYN E 724.8 OTHER SYMPTOMS REFERABLE TO BACK 08/16/2013 HELLWIG SHINGLE WEAVER, KATLYN E V43.65 KNEE JOINT REPLACEMENT 08/16/2013 REAL DO SHAYNA K 719.45 PAIN IN JOINT INVOLVING PELVIC REGION AND THIGH 08/16/2013 ADDIE NOONAN SHAYNA K 724.8 OTHER SYMPTOMS REFERABLE TO BACK 08/16/2013 REAL DO SHAYNA K V43.65 KNEE JOINT REPLACEMENT 08/16/2013 HELLWIG SHINGLE WEAVER KATLYN E 719.45 PAIN IN JOINT INVOLVING PELVIC REGION AND THIGH 08/16/2013 HELLCRISTAL SHINGLE WEAVER, KATLYN E 724.8 OTHER SYMPTOMS REFERABLE TO [...] ANEMIA IN CHRONIC KIDNEY DISEASE 08/21/2013 HELLWIG SHINGLE WEAVER, KATLYN E 791.0 PROTEINURIA 08/21/2013 HELLWIG SHINGLE WEAVER, KATLYN E 250.40 DIABETES WITH RENAL MANIFESTATIONS [...] ADDIE DO SHAYNA K 791.0 PROTEINURIA 08/21/2013 [facility] KATLYN E 250.40 DIABETES WITH RENAL [...] DE LA TORRE MD 791.0 PROTEINURIA 08/21/2013 [facility] APRNSIE E 250.40 DIABETES WITH RENAL [...] GRACE MD Ot 414.01 CORONARY ATHEROSCLEROSIS OF [place] CORON 01/10/2014 LUCILA GRACE MD Ot 786.50 [...] MD, Ot V12.51 HX-VENOUS THROMBOSIS EMBOLISM 07/25/2014 ROSYS DE LA TORRE MD, Ot V12.55 PERSONAL [...] RODY GARCIA APRN Ot 786.05 01/21/2015 DOMENIC HNIES, JETHRO Ulloa Ot 041.3 KLEBSIELLA PNEUMONIAE 01/21/2015 [...] AIMEE Lagunas Ot 715.36 05/15/2015 KATLYN SAXENA SHINGLE WEAVER Ot 453.81 05/15/2015 KATLYN SAXENA SHINGLE WEAVER Ot 564.00 05/15/2015 KATLYN SAXENA SHINGLE WEAVER Ot 789.00 05/15/2015 SOHAN HINES, JAY [place] [...] Ot 278.01 05/15/2015 CORNELIUS SMALLWOOD DO Ot 300.00 05/15/2015 [...] 05/16/2015 LUCILA GRACE MD Ot I70.213 ATHSCL [place] ARTERIES OF EXTRM W INTRMT 05/16/2015 LUCILA [...] ADULT 05/16/2015 LUCILA GRACE MD Ot Z79.01 AIRLINE ATTENDANT (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 OF ANTICOAGULANT 05/16/2015 LUCILA GRACE MD, Ot Z79.4 AIRLINE ATTENDANT (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 OF INSULIN 05/16/2015 LUCILA GRACE MD, Ot Z79.899 OTHER INTERMEDIATE (CURRENT) DRUG THERAPY 06/07/2015 LUCILA GRACE MD [...] STENOSIS OF BILATERAL GARCIA 11/27/2015 RODY GARCIA SHINGLE WEAVER Ot I82.409 ACUTE EMBOLISM AND THOMBOS UNSP DEEP VN 12/04/2015 RODY GARCIA SHINGLE WEAVER Ot G47.33 OBSTRUCTIVE SLEEP APNEA (ADULT) (PEDIATR 12/04/2015 RODY GARCIA SHINGLE WEAVER Ot J98.4 OTHER DISORDERS OF LUNG 12/04/2015 RODY GARCIA SHINGLE WEAVER Ot R06.02 SHORTNESS OF BREATH 12/04/2015 RODY GARCIA SHINGLE WEAVER Ot R09.02 HYPOXEMIA 12/06/2015 RODY GARCIA APRN [...] 715.36 LOC OSTEOARTH NOS-L/LEG 05/13/2016 KATLYN SAXENA SHINGLE WEAVER Ot 453.81 ACUTE VENOUS EMBOLISM THROMBOSIS SUPER 05/13/2016 KATLYN SAXENA SHINGLE WEAVER Ot 564.00 UNSPEC CONSTIPATION 05/13/2016 KATLYN SAXENA SHINGLE WEAVER Ot 789.00 ABDOMINAL PAIN, UNSPECIFIED SITE 05/13/2016 [...] ABNORMALITIES OF GAIT AND MOBILITY 05/13/2016 RANDY NORMNA Ot E78.2 MIXED HYPERLIPIDEMIA 05/13/2016 RANDY NORMAN [...] OF BILATERAL [place]ARC[place] 07/17/2016 MADL, CHELSY L OIL PAINT SHADER Ot Z12.31 ENCNTR SCREEN MAMMOGRAM FOR MALIGNANT NE 07/17/2016 MADL, CHELSY L OIL PAINT SHADER Ot Z12.31 ENCNTR SCREEN MAMMOGRAM FOR MALIGNANT NE 07/28/2016 MADL, CHELSY L OIL PAINT SHADER Ot Z12.31 ENCNTR SCREEN MAMMOGRAM FOR MALIGNANT [...] CHRONIC KIDNEY DISEASE W ST 04/02/2017 CLAUDIA DACOSTA MD Ot N18.4 CHRONIC KIDNEY [...] 715.36 LOC OSTEOARTH NOS-L/LEG 09/22/2017 KATLYN SAXENA SHINGLE WEAVER Ot 453.81 ACUTE VENOUS EMBOLISM THROMBOSIS SUPER 09/22/2017 KATLYN SAXENA SHINGLE WEAVER Ot 564.00 UNSPEC CONSTIPATION 09/22/2017 KATLYN SAXENA SHINGLE WEAVER Ot 789.00 ABDOMINAL PAIN, UNSPECIFIED SITE 09/22/2017 [...] OF BILATERAL [place]ARCIA 09/22/2017 BRODERICK CHELSY L OIL PAINT SHADER Ot Z12.31 ENCNTR SCREEN MAMMOGRAM FOR MALIGNANT [...] LOC OSTEOARTH NOS-L/LEG 09/22/2017 KATLYN SAXENA E SHINGLE WEAVER Ot 453.81 ACUTE VENOUS EMBOLISM THROMBOSIS SUPER 09/22/2017 KATLYN SAXENA E SHINGLE WEAVER Ot 564.00 UNSPEC CONSTIPATION 09/22/2017 KATLYN SAXENA E SHINGLE WEAVER Ot 789.00 ABDOMINAL PAIN, UNSPECIFIED SITE 09/22/2017 [...] OBSTRUCTIVE SLEEP APNEA (ADULT) (PEDIATR 09/22/2017 RODY GACRIA SHINGLE WEAVER Ot J98.4 OTHER DISORDERS OF LUNG 09/22/2017 RODY GARCIA SHINGLE WEAVER Ot R06.02 SHORTNESS OF BREATH 09/22/2017 RODY GARCIA SHINGLE WEAVER Ot R09.02 HYPOXEMIA 09/22/2017 RODY GARCIA SHINGLE WEAVER Ot D64.9 ANEMIA, UNSPECIFIED 09/22/2017 HELIO CAICEDO [...] 715.36 LOC OSTEOARTH NOS-L/LEG 09/29/2017 KATLYN SAXENA SHINGLE WEAVER Ot 453.81 ACUTE VENOUS EMBOLISM THROMBOSIS SUPER 09/29/2017 KATLYN SAXENA SHINGLE WEAVER Ot 564.00 UNSPEC CONSTIPATION 09/29/2017 KATLYN SAXENA E SHINGLE WEAVER Ot 789.00 ABDOMINAL PAIN, UNSPECIFIED SITE 09/29/2017 [...] TYPE II OR UNSPEC TY 09/29/2017 LUCILA GRAEC MD Ot 272.4 HYPERLIPIDEMIA NEC/NOS 09/29/2017 LUCILA [...] AND STENOSIS OF BILATERAL [place]ARC[place] 09/29/2017 LUCILA GARCE MD Ot R26.89 OTHER ABNORMALITIES OF GAIT [...] MD Ot R60.0 LOCALIZED EDEMA 09/29/2017 RANDY NORAMN Ot E78.2 MIXED HYPERLIPIDEMIA 09/29/2017 RANDY NORMAN [...] OF BILATERAL [place]ARCIA 09/29/2017 BRODERICK CHELSY Janneth OIL PAINT SHADER Ot Z12.31 ENCNTR SCREEN MAMMOGRAM FOR MALIGNANT [...] CLAUDIA Reece Ot R60.0 LOCALIZED EDEMA 09/29/2017 JAZMIN CAMPOS MD Ot E11.9 TYPE 2 DIABETES MELLITUS WITHOUT COMPLIC 09/29/2017 JAZMIN CAMPOS MD Ot I12.9 HYPERTENSIVE CHRONIC KIDNEY DISEASE W ST 09/29/2017 BETH HINES, JAZMIN R Ot N18.3 CHRONIC KIDNEY DISEASE, STAGE 3 (MODERAT 09/29/2017 BETH HINES, JAZMIN R Ot R60.9 EDEMA, UNSPECIFIED 09/29/2017 JAZMIN CAMPOS MD Ot E11.9 TYPE 2 DIABETES MELLITUS WITHOUT COMPLIC 09/29/2017 JAZMIN CAMPOS MD Ot I12.9 HYPERTENSIVE CHRONIC KIDNEY DISEASE W ST 09/29/2017 JAZMIN CAMPOS MD Ot N18.3 CHRONIC KIDNEY DISEASE, STAGE 3 (MODERAT 09/29/2017 JAZMIN CAMPOS MD Ot R60.9 EDEMA, UNSPECIFIED 09/29/2017 RANDY NORMAN Ot J44.9 CHRONIC OBSTRUCTIVE PULMONARY DISEASE, U 09/29/2017 RANDY NORMAN Ot R06.02 SHORTNESS OF BREATH 09/30/2017 RANDY NORMAN Ot J44.9 CHRONIC OBSTRUCTIVE PULMONARY DISEASE, U 09/30/2017 RANDY NORMAN Ot R06.02 SHORTNESS OF BREATH 10/06/2017 LUCILA GRACE MD Ot E78.5 HYPERLIPIDEMIA, UNSPECIFIED 10/06/2017 LUCILA GRACE MD Ot I10 ESSENTIAL (PRIMARY) HYPERTENSION 10/06/2017 LUCILA GRACE MD Ot I25.10 ATHSCL HEART DISEASE OF [place] CORONARY 10/06/2017 LUCILA GRAEC MD Ot 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 10/06/2017 LUCILA GRACE MD, Ot J44.9 CHRONIC OBSTRUCTIVE PULMONARY DISEASE, U 10/06/2017 LUCILA GRACE MD Ot Z11.2 ENCOUNTER FOR SCREENING FOR OTHER BACTER 10/06/2017 LUCILA GRACE MD Ot Z86.718 PERSONAL HISTORY OF OTHER VENOUS THROMBO 10/07/2017 LUCILA GRACE MD Ot E78.5 HYPERLIPIDEMIA, UNSPECIFIED 10/07/2017 LUCILA GRACE MD Ot I10 ESSENTIAL (PRIMARY) HYPERTENSION 10/07/2017 LUCILA GRACE MD Ot I25.10 ATHSCL HEART DISEASE OF [place] CORONARY 10/07/2017 LUCILA GRACE MD Ot 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 10/07/2017 LUCILA GRACE MD, Ot J44.9 CHRONIC OBSTRUCTIVE PULMONARY DISEASE, U 10/07/2017 LUCILA GRACE MD, Ot Z11.2 ENCOUNTER FOR SCREENING FOR OTHER BACTER 10/07/2017 LUCILA GRACE MD, Ot Z86.718 PERSONAL HISTORY OF OTHER VENOUS THROMBO 10/11/2017 RANDY NORMAN Ot J44.9 CHRONIC OBSTRUCTIVE PULMONARY DISEASE, U 10/11/2017 RANDY NORMAN Ot R06.02 SHORTNESS OF BREATH 10/19/2017 RANDY NORMAN Ot J44.9 CHRONIC OBSTRUCTIVE PULMONARY DISEASE, U 10/19/2017 RANDY NORMAN Ot R06.02 SHORTNESS OF BREATH 10/22/2017 RANDY NORMAN Ot J44.9 CHRONIC OBSTRUCTIVE PULMONARY DISEASE, U 10/22/2017 RANDY NORMAN Ot R06.02 SHORTNESS OF BREATH 10/22/2017 RANDY NORMAN Ot J44.9 CHRONIC OBSTRUCTIVE PULMONARY DISEASE, U 10/22/2017 RANDY NORMAN Ot R06.02 SHORTNESS OF BREATH 10/28/2017 RANDY NORMAN Ot J44.9 CHRONIC OBSTRUCTIVE PULMONARY DISEASE, U 10/28/2017 RANDY NORMAN Ot R06.02 SHORTNESS OF BREATH 11/09/2017 RANDY NORMAN Ot J44.9 CHRONIC OBSTRUCTIVE PULMONARY DISEASE, U 11/09/2017 RANDY NORMAN Ot R06.02 SHORTNESS OF BREATH 11/09/2017 RANDY NORMAN Ot J44.9 CHRONIC OBSTRUCTIVE PULMONARY DISEASE, U 11/09/2017 CRISTEL CAMARILLO, RANDY Oscar Ot R06.02 SHORTNESS OF BREATH Procedures Code Description [place] [address] MAMMOGRAM DX, RIGHT 04/22/2012 18024 A1C (IN-HOUSE) 07/19/2012 55649 JOINT INJECTION- LARGE JOINT (SPECIFY MEDCIN DESCRIPTION) 08/02/2012 37716 ROUTINE VENIPUNCTURE 11/10/2012 86766 JOINT INJECTION- LARGE JOINT (SPECIFY MEDCIN DESCRIPTION) 11/10/2012 92189 MAMMOGRAM DX, RIGHT 11/10/2012 80118 CMP 11/10/2012 13182 LIPID PANEL 11/10/2012 5080803 GFR CALC (RESULT ONLY) 11/10/2012 08051 CBC 11/10/2012 01871 A1C (IN-HOUSE) 12/06/2012 81852 MICRO ALBUMIN-IN HOUSE 12/06/2012 13096 ROUTINE VENIPUNCTURE 01/03/2013 15115 XRAY LUMBAR SPINE MIN 4 VIEWS 01/03/2013 42775 XRAY KNEE RIGHT 3 VIEWS 01/03/2013 67896 BMP 01/03/2013 61618 ROUTINE VENIPUNCTURE 02/10/2013 27809 JOINT INJECTION- LARGE JOINT (SPECIFY MEDCIN DESCRIPTION) 02/10/2013 38446 BMP 02/10/2013 Nephrolog Gregorio Young 02/10/2013 16553 ROUTINE VENIPUNCTURE 02/20/2013 29060 RENAL PROFILE 02/20/2013 03328 CBC 02/20/2013 79541 CULTURE URINE 02/20/2013 PRO/CRE URINE PROTEIN TO CREATNINE RATIO 02/20/2013 68596 ROUTINE VENIPUNCTURE 03/20/2013 37771 CMP 03/20/2013 42214 BNP 03/20/2013 10938 CULTURE URINE 03/20/2013 51357 A1C (IN-HOUSE) 03/20/2013 13262 UA LONG DIP 03/20/2013 80011 ROUTINE VENIPUNCTURE 2013 56375 RENAL PROFILE 2013 92980 CBC 2013 PRO/CRE URINE PROTEIN TO CREATNINE RATIO 2013 Jay Carreon 04/11/2013 80334 XRAY ABDOMEN 2 VIEWS 04/19/2013 31344 VENOUS DOPPLER UNILATERAL/ LIMITED 04/26/2013 91878 VENOUS DOPPLER UNILATERAL/ LIMITED 04/26/2013 86743 JOINT INJECTION- LARGE JOINT (SPECIFY MEDCIN DESCRIPTION) 04/27/2013 86923 XRAY ABDOMEN 2 VIEWS 05/08/2013 OrthopYee Hanna 05/25/2013 15365 EKG, TRACING (IN-HOUSE) 06/15/2013 24617 SLEEP STUDY ([facility] SLEEP STUDY) 07/18/2013 81.54 TOTAL KNEE REPLACEMENT 07/19/2013 45726 JOINT INJECTION- LARGE JOINT (SPECIFY MEDCIN DESCRIPTION) 08/16/2013 55830 ROUTINE VENIPUNCTURE 08/21/2013 76389 GLUCOSE FINGER STICK 08/21/2013 46045 A1C (IN-HOUSE) 08/21/2013 52264 RENAL PROFILE 08/21/2013 23790 A1C (RML) 08/21/2013 06922 CBC 08/21/2013 PRO/CRE URINE PROTEIN TO CREATNINE RATIO 08/21/2013 99577 PULMONARY FUNCTION TEST 10/03/2013 Cardiolog Lucila Grace 10/03/2013 Pulmonary Cornelius Smallwood 12/05/2013 05291 OXIMETRY 01/18/2014 54714 A1C (IN-HOUSE) 01/22/2014 94806 ROUTINE VENIPUNCTURE 03/21/2014 80052 TRIGGER POINT INJ/1-2 MUS 03/21/2014 78317 CMP 03/21/2014 65424 A1C (IN-HOUSE) 05/24/2014 01466 ROUTINE VENIPUNCTURE 07/18/2014 77430 UA LONG DIP 07/18/2014 84068 CMP 07/18/2014 76744 CULTURE URINE 07/18/2014 13089 XRAY ABDOMEN 2 VIEWS 08/17/2014 Results Test [...] culture - 10/17/16 09:20 Bacterial urine culture [id number] NRG COLONY COUNT >100,000/ML NRG FTX;REPORTABLE SENSITIVITY REPORTED AT 1617, 4-16-17 NRG FREE TEXT ENTRY 3 MIXED GRAM POSITIVE ISAURA [facility] Bacterial susceptibility panel - 10/17/16 09:20 Gentamicin [...] susceptibility test by minimum inhibitory concentration - [facility] Complete blood count (CBC) with automated white [...] culture - 04/21/17 10:26 Bacterial urine culture [id number] NRG COLONY COUNT >100,000/ML NRG FTX;REPORTABLE SENSITIVITY REPORTED AT 1607, 04-22-17 NR URINE CULTURE RESULTS PLUS [facility] Bacterial susceptibility panel - 04/21/17 10:26 Gentamicin [...] susceptibility test by minimum inhibitory concentration - [facility] Bacterial urine culture - 08/21/17 12:00 URINE CULTURE RESULTS MORE THAN 3 ISOLATES NR Automated blood complete blood count (hemogram) panel - 10/06/17 07:40 Blood leukocytes automated count (number/volume) 9.9 10*3/uL 4.3-11.0 Blood erythrocytes automated count (number/volume) 3.28 10*6/uL 4.35-5.85 Venous blood hemoglobin measurement (mass/volume) 9.6 g/dL 11.5-16.0 Blood hematocrit (volume fraction) 32 % 35-52 Automated erythrocyte mean corpuscular volume 96 [foz_us] 80-99 Automated erythrocyte mean corpuscular hemoglobin (mass per erythrocyte) 29 pg 25-34 Automated erythrocyte mean corpuscular hemoglobin concentration measurement ( mass/volume) 30 g/dL 32-36 Automated erythrocyte distribution width ratio 13.7 % 10.0-14.5 Automated blood platelet count (count/volume) 213 10*3/uL 130-400 Automated blood platelet mean volume measurement 11.1 [foz_us] 7.4-10.4 PT panel in platelet poor plasma by coagulation assay - 10/06/17 07:40 Prothrombin time (PT) in platelet poor plasma by coagulation assay 13.8 s 12.2-14.7 INR in platelet poor plasma or blood by coagulation assay 1.1 0.8-1.4 Activated partial thromboplastin time (aPTT) in platelet poor plasma bycoagulation assay - 10/06/17 07:40 Activated partial thromboplastin time (aPTT) in platelet poor plasma bycoagulation assay 30 s 24-35 Comprehensive metabolic panel - 10/06/17 07:40 Serum or plasma sodium measurement (moles/volume) 143 mmol/L 135-145 Serum or plasma potassium measurement (moles/volume) 4.4 mmol/L 3.6-5.0 Serum or plasma chloride measurement (moles/volume) 105 mmol/L 98-107 Carbon dioxide 31 mmol/L 21-32 Serum or plasma anion gap determination (moles/volume) 7 mmol/L 5-14 Serum or plasma urea nitrogen measurement (mass/volume) 45 mg/dL 7-18 Serum or plasma creatinine measurement (mass/volume) 1.91 mg/dL 0.60-1.30 Serum or plasma urea nitrogen/creatinine mass ratio 24 NRG Serum or plasma creatinine measurement with calculation of estimated glomerular filtration rate 26 NRG Serum or plasma glucose measurement (mass/volume) 231 mg/dL 70-105 Serum or plasma calcium measurement (mass/volume) 9.5 mg/dL 8.5-10.1 Serum or plasma total bilirubin measurement (mass/volume) 0.3 mg/dL 0.1-1.0 Serum or plasma alkaline phosphatase measurement (enzymatic activity/volume) 156 U/L 40-136 Serum or plasma aspartate aminotransferase measurement (enzymatic activity/ volume) 16 U/L 5-34 Serum or plasma alanine aminotransferase measurement (enzymatic activity/volume ) 23 U/L 0-55 Serum or plasma protein measurement (mass/volume) 6.7 g/dL 6.4-8.2 Serum or plasma albumin measurement (mass/volume) 3.6 g/dL 3.2-4.5 Lipid 1996 panel - 10/06/17 07:40 Serum or plasma triglyceride measurement (mass/volume) 226 mg/dL <150 Serum or plasma cholesterol measurement (mass/volume) 161 mg/dL < 200 Serum or plasma cholesterol in HDL measurement (mass/volume) 33 mg/ dL 40-60 Cholesterol in LDL [mass/volume] in serum or plasma by direct assay 90 mg/dL 1-129 Serum or plasma cholesterol in VLDL measurement (mass/volume) 45 mg/ dL 5-40 Methicillin resistant Staphylococcus aureus (MRSA) screening culture - 07:40 Methicillin resistant Staphylococcus aureus (MRSA) screening culture NEG NRG Encounters ACCT No. Visit Date/Time Discharge Status Pt. Type Provider Facility Loc./Unit Complaint [id number] 08/16/2014 12:59:00 08/16/2014 23:59:59 CLS Outpatient KATLYN SAXENA APRN [id number] 08/13/2014 08:41:00 08/13/2014 23:59:59 CLS Outpatient BRITT HINES, ROSSY Carl [id number] 07/18/2014 09:33:00 07/18/2014 23:59:59 CLS Outpatient SHAYNA REAL DO [id number] 05/24/2014 10:06:00 05/24/2014 23:59:59 CLS Outpatient SHAYNA REAL DO [id number] 05/24/2014 10:06:00 05/24/2014 23:59:59 CLS Outpatient KATLYN SAEXNA APRN [id number] 03/21/2014 14:22:00 03/21/2014 23:59:59 CLS Outpatient KATLYN SAXENA APRN [id number] 01/22/2014 10:21:00 01/22/2014 23:59:59 CLS Outpatient REAL DOSHAYNA [id number] 01/22/2014 10:21:00 01/22/2014 23:59:59 CLS Outpatient KATLYN SAXENA APRN [id number] 10/03/2013 10:51:00 10/03/2013 23:59:59 CLS Outpatient JETHRO SHETH MD [id number] 10/03/2013 10:51:00 10/03/2013 23:59:59 CLS Outpatient JETHRO SHETH MD [id number] 09/13/2013 09:59:00 09/13/2013 23:59:59 CLS Outpatient REAL DOJAMELChevy Oscar [id number] 08/21/2013 09:18:00 08/21/2013 23:59:59 CLS Outpatient REAL DO, SHAYNA Oscar [id number] 08/16/2013 10:41:00 08/16/2013 23:59:59 CLS Outpatient REAL DOSHAYNA Dayne [id number] 07/18/2013 08:15:00 07/18/2013 23:59:59 CLS Outpatient JAY PARRY MD [id number] 06/14/2013 14:14:00 06/14/2013 23:59:59 CLS Outpatient REAL DO SHAYNA Oscar [id number] 05/25/2013 12:36:00 05/25/2013 23:59:59 CLS Outpatient JAY PARRY MD [id number] 05/15/2013 15:37:00 05/15/2013 23:59:59 CLS Outpatient REAL DOSHAYNA Dayne [id number] 05/08/2013 15:52:00 05/08/2013 23:59:59 CLS Outpatient REAL DO, SHAYNA Oscar [id number] 05/03/2013 14:09:00 05/03/2013 23:59:59 CLS Outpatient REAL DO, SHAYNA Oscar [id number] 04/27/2013 12:47:00 04/27/2013 23:59:59 CLS Outpatient REAL DO, SHAYNA Oscar [id number] 04/26/2013 10:42:00 04/26/2013 23:59:59 CLS Outpatient REAL DO, SHAYNA Oscar [id number] 04/19/2013 09:09:00 04/19/2013 23:59:59 CLS Outpatient REAL DO, SHAYNA Oscar [id number] 04/11/2013 00:00:00 04/11/2013 23:59:59 CLS Outpatient SHAYNA REAL DO [id number] 2013 15:25:00 2013 23:59:59 CLS Outpatient SHAYNA REAL DO [id number] 03/20/2013 09:23:00 03/20/2013 23:59:59 CLS Outpatient SHAYNA REAL DO [id number] 03/20/2013 09:23:00 03/20/2013 23:59:59 CLS Outpatient SHAYNA REAL DO [id number] 08/02/2012 09:58:00 08/02/2012 23:59:59 CLS Outpatient AIMEE CONKLIN MD [id number] 07/19/2012 09:02:00 07/19/2012 23:59:59 CLS Outpatient [id number] 04/22/2012 14:11:00 04/22/2012 23:59:59 CLS Outpatient AIMEE CONKLIN MD [id number] 04/22/2012 14:11:00 04/22/2012 23:59:59 CLS Outpatient AIMEE CONKLIN MD [id number] 03/01/2013 13:43:00 Document Registration [id number] 02/24/2013 09:53:00 Document Registration [id number] 02/20/2013 10:56:00 Document Registration [id number] 02/10/2013 09:46:00 Document Registration [id number] 01/03/2013 09:22:00 Document Registration [id number] 12/06/2012 15:06:00 Document Registration [id number] 11/10/2012 09:50:00 Document Registration [id number] 09/11/2016 07:06:00 Document Registration [id number] 10/07/2017 15:20:00 10/07/2017 23:59:59 CLS Outpatient YOHANAL PATRICK [facility]ARR[facility]WNYA [facility] [place] [id number] 06/11/2016 10:06:00 Document Registration [id number] 10/06/2017 06:56:00 10/06/2017 14:30:00 DIS Outpatient LUCILA GRACE MD [facility] CATH ABN STRESS [id number] 09/29/2017 07:18:00 09/29/2017 23:59:59 CLS Outpatient RANDY NORMAN [facility] CARD COPD J44.9 [id number] 09/22/2017 11:46:00 09/22/2017 23:59:59 CLS Outpatient RANDY NORMAN [facility] CARD J44.9 COPD [id number] 08/21/2017 11:29:00 08/21/2017 23:59:59 CLS Outpatient JAZMIN CAMPOS MD [facility] LAB HYPERTENSION,CHRONIC KIDNEY DISEASE,DIABETES MELLI [id number] 04/21/2017 10:00:00 04/21/2017 23:59:59 CLS Outpatient JAZMIN CAMPOS MD [facility] LAB I10,N18.3,E11.9,R60.9 [id number] 03/28/2017 11:11:00 03/28/2017 23:59:59 CLS Outpatient CLAUDIA DACOSTA MD [facility] LAB HTN,CKD STG 4,EDEMA, METABOLIC BONE DISEASE [id number] 01/14/2017 12:28:00 01/14/2017 23:59:59 CLS Outpatient JAZMIN CAMPOS MD [facility] LAB I10,N18.4,R60.9,E88.9 [id number] 12/10/2016 09:18:00 12/10/2016 23:59:59 CLS Outpatient JAZMIN CAMPOS MD [facility] LAB I10,N18.4,R60.9,E88.9 [id number] 10/17/2016 08:37:00 10/17/2016 23:59:59 CLS Outpatient JAZMIN CAMPOS MD [facility] LAB CHRONIC KIDNEY DISEASE [id number] 07/16/2016 10:52:00 07/16/2016 23:59:59 CLS Outpatient CHELSY VILLAFANA [facility] RAD SCREENING FOR BREAST CA [id number] 06/18/2016 11:40:00 06/18/2016 23:59:59 CLS Outpatient RANDY NORMAN [facility] LAB CAROTID ARTERY STENOSIS,HTN [id number] 06/18/2016 11:36:00 06/18/2016 23:59:59 CLS Outpatient HELIO CAICEDO MD [facility] RAD CKD STAGE 4 [id number] 05/19/2016 08:50:00 05/19/2016 23:59:59 CLS Outpatient RANDY NORMAN [facility] LAB HTN, HYPERLIPIDEMIA [id number] 05/13/2016 13:28:00 05/13/2016 23:59:59 CLS Outpatient HELIO CAICEDO MD [facility] LAB CHRONIC KIDNEY DIS STAGE 4,HTN,ANEMIA,EDEMA [id number] 11/22/2015 13:54:00 11/22/2015 23:59:59 CLS Outpatient RODY GARCIA APRN [facility] SDC ANEMIA [id number] 11/21/2015 11:38:00 11/21/2015 23:59:59 CLS Outpatient RODY GARCIA SHINGLE WEAVER [facility] LAB DVT,SOB,AUBREE, HYPOXEMIA,RESTRICTIVE LUNG DISEASE [id number] 11/15/2015 10:01:00 11/15/2015 23:59:59 CLS Outpatient RANDY NORMAN [facility] LAB HTN, HYPERLIPIDEMIA,CAROTID ARTERY STENOSIS [id number] 11/14/2015 13:54:00 11/14/2015 23:59:59 CLS Outpatient RODY GARCIA APRN [facility] LAB DVT [id number] 11/14/2015 13:49:00 11/14/2015 23:59:59 CLS Outpatient RANDY NORMAN [facility] LAB HTN,CAROTID ARTERY STENOSIS,HYPERLIPIDEMIA [id number] 05/15/2015 11:32:00 05/16/2015 11:10:00 DIS Outpatient LUCILA GRACE MD [facility] CATH CLAUDICATION,PVD,IDDM, HTN,HLP [id number] 05/13/2015 10:21:00 05/13/2015 23:59:59 CLS Outpatient LUCILA GRACE MD [facility] RAD HTN CLAUDICATION CAROTID ARTERY STENOSIS [id number] 05/03/2015 09:37:00 05/03/2015 23:59:59 CLS Outpatient RANDY NORMAN [facility] LAB HTN, CAROTID ARTERY STENOSIS [id number] 01/17/2015 21:19:00 01/21/2015 14:00:00 DIS Inpatient JETHRO SHETH MD [facility] SURGICAL ANASARCA,DYSPNEA, FLUID OVERLOAD, ANEMIA [id number] 11/27/2014 11:31:00 11/27/2014 23:59:59 CLS Outpatient RODY GARCIA APRN [facility] RAD SOB,PE [id number] 08/09/2014 15:00:00 08/09/2014 23:59:59 CLS Preadmit CORNELIUS SMALLWOOD DO [facility] PULM ASTHMA AUBREE [id number] 05/10/2014 14:43:00 08/08/2014 00:01:00 DIS Outpatient CORNELIUS SMALLWOOD DO [facility] PULM ASTHMA AUBREE [id number] 07/23/2014 14:32:00 07/25/2014 14:54:00 DIS Inpatient BRITT HINES, ROSSY Carl [facility] 4TH SMALL BOWEL OBSTRUCTION [id number] 05/04/2014 14:14:00 05/04/2014 23:59:59 CLS Outpatient CORNELIUS SMALLWOOD DO [facility] RT ASTHMA AUBREE [id number] 01/10/2014 06:49:00 01/10/2014 13:15:00 DIS Outpatient FANNY HINES, LUCILA Velazquez [facility] CATH DYSPNEA,SOB,HLP HTN, IDDM [id number] 12/04/2013 13:23:00 12/26/2013 12:17:00 DIS Outpatient YEE LAFLEUR MD [facility] REHAB S/P R TKR [id number] 12/11/2013 18:03:00 12/15/2013 10:15:00 DIS Inpatient CORNELIUS SMALLWOOD DO [facility] 4TH DVT [id number] 12/11/2013 12:57:00 12/11/2013 23:59:59 CLS Outpatient CORNELIUS SMALLWOOD DO [facility] CARD RT CALF PAIN,HX DVT, RESP INSUFF,ASTHMA [id number] 12/04/2013 07:08:00 12/04/2013 23:59:59 CLS Outpatient LUCILA GRACE MD [facility] CARD SOB,HTN,HLP,COPD [id number] 11/01/2013 12:56:00 11/09/2013 09:23:00 DIS Outpatient YEE LAFLEUR MD [facility] REHAB S/P R TKR [id number] 10/23/2013 15:20:00 10/23/2013 23:59:59 CLS Outpatient JETHRO SHETH MD [facility] RT UNEXPLAINED HYPOXIA [id number] 08/10/2013 20:03:00 08/11/2013 08:15:00 DIS Outpatient VELVET LUCERO [facility] SLEEP AUBREE,[place]OKING [id number] 07/26/2013 10:30:00 08/03/2013 18:30:00 DIS Inpatient BESS COREAS MD [facility] IRF SEVERE OSTEOARTHRISTIS RIGHT KNEE [id number] 07/19/2013 08:12:00 07/26/2013 10:30:00 DIS Inpatient YEE LAFLEUR MD [facility] SURGICAL SEVERE OSTEOARTHRISTIS RIGHT KNEE [id number] 07/12/2013 09:51:00 07/12/2013 23:59:59 CLS Outpatient YEE LAFLEUR MD [facility] PREOP SEVERE OSTEOARTHRITIS RIGHT KNEE [id number] 06/05/2013 08:15:00 06/05/2013 11:05:00 DIS Outpatient JAY PARRY MD [facility] SDC CONSTIPATION [id number] 05/24/2013 07:35:00 05/24/2013 23:59:59 CLS Outpatient JAY PARRY MD [facility] PREOP CONSTIPATION [id number] 05/09/2013 09:35:00 05/09/2013 23:59:59 CLS Outpatient KATLYN SAXENA APRN [facility] RAD CONSTIPATON [id number] 04/26/2013 13:20:00 04/26/2013 23:59:59 CLS Outpatient ELOYJannethKATLYN BEE LEN [facility] RAD LEFT ARM SWELLING, REDNESS [id number] 04/21/2013 11:54:00 04/24/2013 12:24:00 DIS Inpatient ADDIE NOONAN, SHAYNA K [facility] 4TH N/V [id number] 02/02/2013 16:08:00 02/03/2013 13:18:00 DIS Inpatient JETHRO SHETH MD [facility] 4TH ACUTE RENAL FAILURE [id number] 01/19/2013 10:23:00 01/19/2013 23:59:59 CLS Outpatient AIMEE CONKLIN MD [facility] RAD LBP,HX OF BULLET FRAGMENT IN BACK OR HIP [id number] 11/24/2012 12:08:00 11/24/2012 23:59:59 CLS Outpatient AIMEE CONKLIN MD [facility] RAD 6 MONTH F/U [id number] 05/15/2015 11:32:00 Document Registration [id number] 07/24/2014 14:08:00 Document Registration [id number] 05/16/2014 09:57:00 Document Registration [id number] 05/19/2012 10:58:00 Document Registration [id number] 05/12/2012 14:32:00 Document Registration [id number] 01/17/2015 15:38:40 ACT Document Registration
[2017-12-22] MEDS ORDERED: fentaNYL INJECTION 100 MCG/2 ML AMP IVP STA (20:32)
[2017-12-22] MEDS ORDERED: NS IV 500 ML 500 ML ONE (20:44)
[2017-12-22] MEDS ORDERED: PANTOPRAZOLE 40 MG/10 ML (PROTONIX) VIAL IV ONE (20:45)
[2017-12-22 20:58] VITALS: BP 112/66
[2017-12-22 21:41] VITALS: BP 138/52
[2017-12-22 21:49] LABS: ABG BASE EXCESS -0.7 MMOL/L (-2.5-2.5); ABG OXYGEN SATURATION 97 % (94-100); ABG PCO2 66 MMHG (35-45); ABG PO2 111 MMHG (79-93); ABG TCO2 28.4 MMOL/L (21.0-31.0)
[2017-12-22 21:50] LABS: ABG PH 7.22 (7.37-7.43); ALLENS TEST POSITIVE; VENTILATOR NO
[2017-12-22 21:51] LABS: INSPIRED O2 40% BIPAP; PATIENT TEMP 97.7
[2017-12-22 22:49] VITALS: BP 122/44
== END 2017-12-22 22:49 | disposition short-term general hospital (02) ==
LOC: ER 17:50 → EDUNIT# 17:50 → ER 22:49
DX: A41.9 Sepsis, unspecified organism (principal); R65.20 Severe sepsis without septic shock; N17.9 Acute kidney failure, unspecified; E11.22 Type 2 diabetes mellitus with diabetic chronic kidney disease; N18.9 Chronic kidney disease, unspecified; R41.82 Altered mental status, unspecified; E87.5 Hyperkalemia; E87.2 Acidosis; E11.10 Type 2 diabetes mellitus with ketoacidosis without coma; D64.9 Anemia, unspecified; J44.9 Chronic obstructive pulmonary disease, unspecified; E78.00 Pure hypercholesterolemia, unspecified; I10 Essential (primary) hypertension; F41.9 Anxiety disorder, unspecified; F32.9 Major depressive disorder, single episode, unspecified; G47.9 Sleep disorder, unspecified; Z87.19 Personal history of other diseases of the digestive system; Z90.710 Acquired absence of both cervix and uterus; Z87.828 Personal history of other (healed) physical injury and trauma; Z79.82 Long term (current) use of aspirin; Z79.4 Long term (current) use of insulin; Z88.0 Allergy status to penicillin; Z88.8 Allergy status to other drugs, medicaments and biological substances
CPT/HCPCS: 36415; 36600; 51702; 70450; 71045; 71250; 74176; 80053; 80306; 80320; 81000; 82150; 82805; 82962; 83605; 83690; 83735; 83880; 84443; 84484; 85007; 85027; 85610; 85730; 86850; 86900; 86901; 86920; 87040; 93005; 93041; 94640; 96361; 96365; 96367; 96368; 96375

== ENCOUNTER 2018-01-16 03:51 | Emergency (ER) | payer MEDICARE, MEDICAID ==
[~2018-01-16] VITALS: Ht 162.6 cm; Wt 136.1 kg
[2018-01-16] MEDS ORDERED: HYDROcodone/APAP 10 MG/325 MG (LORTAB) TAB PO STA (04:03)
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
[2018-01-16] MEDS ORDERED: PRD20T PO (05:23)
[2018-01-16] MEDS ORDERED: predniSONE 20 MG TAB PO ONE (05:30)
[2018-01-16 06:20] VITALS: BP 169/71
--- OUTSIDE RECORDS SUMMARY | 2018-01-17 09:34 | XMS REPORT ---
Author Author CHELSY VILLAFANA Organization [facility] Address [address] [place] [address] Care Team Providers Care Counter Manager Name Role Phone CHELSY VILLAFANA Unavailable PROBLEMS Type Condition ICD9-CM Code OQS40-UC Code Onset Dates Condition Status SNOMED Code Problem Chronic pain syndrome G89.4 Active 810733983 Problem Type 2 diabetes mellitus with hyperglycemia E11.65 Active 180092637569347 Problem Primary insomnia F51.01 Active 8425163 Problem Bilateral lower extremity edema R60.0 Active 335792710 Problem Anemia in other chronic diseases classified elsewhere D63.8 Active 794073990 Problem Supplemental oxygen dependent Z99.81 Active 248014917059 Problem Right carpal tunnel syndrome G56.01 Active 670182657301073 Problem 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 Active 452158355850063 Problem Paresthesia of right upper extremity R20.2 Active 21336209 Problem Chronic kidney disease, stage 4 (severe) N18.4 Active 437263415 Problem intermediate card tender 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 Active 331925000 Problem Psoriasis of scalp L40.9 Active 220097268 Problem Gastroesophageal reflux disease without esophagitis K21.9 Active 758303345 Problem Chronic obstructive pulmonary disease, unspecified COPD type J44.9 Active 97894030 Problem Type 2 diabetes mellitus with other diabetic kidney complication E11.29 Active 411378593 Problem Diabetic polyneuropathy associated with type 2 diabetes mellitus E11.42 Active 19013912 Problem History of DVT (deep vein thrombosis) Z86.718 Active 573367922 Problem residential current use of anticoagulant Z79.01 Active 637112761 Problem Oxygen desaturation during sleep G47.34 Active 929566524 Problem Essential hypertension I10 Active 02694957 Problem Depression, unspecified depression type F32.9 Active 44186606 Problem Sleep apnea in adult G47.33 Active 93360516 ALLERGIES No Information ENCOUNTERS Encounter Location Date Diagnosis [facility] [address], [place] [address] November, [facility] [id number] [place] [address] 26785- 1461 November, [facility] [address], [place] [address] November, [facility] [id number] [place] [address] 06876- 7336 Oct, Type 2 diabetes mellitus with other diabetic kidney complication E11.29 [facility] [address] [place] [address] 91638- 1130 Oct, Primary insomnia F51.01 [place] [id number] [id number] Oct, Bilateral lower extremity edema R60.0 [place] [address] [id number] [place] [address] 95873- 2120 Oct, [facility] [id number] [place] [address] 27734- 8588 Sep, Type 2 diabetes mellitus with other diabetic kidney complication E11.29 and Chronic obstructive pulmonary disease, unspecified COPD type J44.9 [facility] [address], [place] [address] 73[address] 15 Aug, 2017 Type 2 diabetes mellitus with other diabetic kidney complication E11.29 [facility] [id number] [place] [address] 96129- 2414 Aug, Gastroesophageal reflux disease without esophagitis K21.9 ; residential current use of anticoagulant Z79.01 ; Chronic pain syndrome G89.4 ; Essential hypertension I10 and Type 2 diabetes mellitus with other diabetic kidney complication E11.29 [place] [address] [place] [address] 80302- 8414 08 Aug, 2017 Chronic pain syndrome G89.4 [facility] [address] [place] [address] 04727- 5443 Aug, Type 2 diabetes mellitus with other diabetic kidney complication E11.29 [facility] [address], [place] [address] 9588 Jul, Diabetic polyneuropathy associated with type 2 diabetes mellitus E11.42 [facility] [address], [place] [address] 1624 Jul, Primary insomnia F51.01 [facility] [id number] [place] [address] 18934- 3779 Jul, [facility] [address] [id number] [place] [address] 65473- 9110 Jul, Type 2 diabetes mellitus with other diabetic kidney complication E11.29 and Chronic obstructive pulmonary disease, unspecified COPD type J44.9 [facility] [address] [id number] [place] [address] 94003- 2365 Jul, Type 2 diabetes mellitus with other diabetic kidney complication E11.29 [facility] [address] [address] [id number] [place] [address] 19364- 6741 Jun, Type 2 diabetes mellitus with other diabetic kidney complication E11.29 [facility] [address] [place] [address] 89056- 8189 Jun, [facility] [address] [place] [address] 21267- 8163 Jun, Chronic obstructive pulmonary disease, unspecified COPD type J44.9 [facility] [address], [place] [address] 6241 May, Type 2 diabetes mellitus with other diabetic kidney complication E11.29 [facility] [address], [place] [address] 9732 May, intermediate card tender current use of anticoagulant Z79.01 and Essential hypertension I10 [facility] [address], [place] [address] 3162 May, Anemia in other chronic diseases classified elsewhere D63.8 ; Chronic obstructive pulmonary disease, unspecified COPD type J44.9 ; Oxygen desaturation during sleep G47.34 ; Sleep apnea in adult G47.33 and Supplemental oxygen dependent Z99.81 [place] [address] [place] [id number] [place] [address] 11525- 1720 08 May, 2017 Type 2 diabetes mellitus with other diabetic kidney complication E11.29 ; Essential hypertension I10 ; Chronic pain syndrome G89.4 ; BMI 40.0-44.9, adult Z68.41 ; Gastroesophageal reflux disease without esophagitis K21.9 ; intermediate card tender current use of anticoagulant Z79.01 ; residential 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 ; Diabetic polyneuropathy associated with type 2 diabetes mellitus E11.42 ; Edema of both legs R60.0 and Supplemental oxygen dependent Z99.81 [place] [address] [id number] [place] [address] 51076- 3646 May, [facility] [address] [address] [id number] [place] [address] 30978- 8107 May, Essential hypertension I10 and Gastroesophageal reflux disease without esophagitis K21.9 [facility] [address] [place] [address] [id number] [place] [address] 08730- 2315 May, [facility] [place] [address] [address] [id number] [place] [address] 87647- 7493 May, Type 2 diabetes mellitus with other diabetic kidney complication E11.29 and intermediate card tender current use of anticoagulant Z79.01 [place] [address] [id number] [place] [address] 97295- 7919 Apr, Chronic pain syndrome G89.4 and Essential hypertension I10 [place] [address] [id number] [place] [address] 02765- 3075 Apr, Type 2 diabetes mellitus with other diabetic kidney complication E11.29 [facility] [address] [id number] [place] [address] 17924- 3758 Apr, Type 2 diabetes mellitus with other diabetic kidney complication E11.29 [place] [id number] [place] [address] 14593- 6942 Apr, Essential hypertension I10 [place] [address] [place] [id number] [place] [address] 63994- 1175 06 Apr, 2017 Gastroesophageal reflux disease without esophagitis K21.9 [place] [id number] [place] [address] 57554- 4171 05 Apr, 2017 Type 2 diabetes mellitus with other diabetic kidney complication E11.29 [place] [address] [place] [id number] [place] [address] 70020- 3563 Apr, Type 2 diabetes mellitus with other diabetic kidney complication E11.29 and intermediate card tender current use of anticoagulant Z79.01 [place] [address] [place] [id number] [place] [address] 44936- 4480 Mar, Encounter for immunization Z23 and Preoperative examination Z01.818 [place] [address] [place] [address] [id number] [place] [address] 64312- 6988 Mar, [facility] [facility] [address] 96670- 0031 Mar, Type 2 diabetes mellitus with other diabetic kidney complication E11.29 [facility] [address] [place] [address] [id number] [place] [address] 75440- 9994 Mar, Type 2 diabetes mellitus with other diabetic kidney complication E11.29 [place] [address] [place] [address] [id number] [place] [address] 88663- 5934 Mar, Gastroesophageal reflux disease without esophagitis K21.9 [place] [address] [place] [address] [id number] [place] [address] 79360- 6968 Mar, Essential hypertension I10 [place] [address] [place] [address] [id number] [place] [address] 93375- 2895 Feb, residential current use of anticoagulant Z79.01 [place] [address] [place] [id number] [place] [address] 76433- 9125 Feb, Type 2 diabetes mellitus with other diabetic kidney complication E11.29 [facility] [address] [place] [address] [id number] [place] [address] 17577- 3744 Feb, Type 2 diabetes mellitus with other diabetic kidney complication E11.29 [facility] [address], [place] [address]- 4674 Feb, Type 2 diabetes mellitus with other diabetic kidney complication E11.29 [facility] [id number] [place] [address] 28321 2546 Feb, Gastroesophageal reflux disease without esophagitis K21.9 [facility] [id number] [place] [address] 34128- 1815 Feb, Type 2 diabetes mellitus with other diabetic kidney complication E11.29 [facility] [address] [place] [address] 57042- 4841 Feb, intermediate card tender current use of anticoagulant Z79.01 [facility] [id number] [place] [address] 48356- 5658 Jan, Type 2 diabetes mellitus with other diabetic kidney complication E11.29 [facility] [address] [place] [id number] [place] [address] 04392- 3051 Jan, Type 2 diabetes mellitus with other diabetic kidney complication E11.29 [facility] [address] [place] [id number] [place] [address] 27569- 4981 Jan, Chronic pain syndrome G89.4 [facility] [id number] [place] [address] 18898 2544 Jan, [facility] [address], [place] [address] 2544 Jan, [facility] [address], [place] [address] 2546 Jan, [facility] [address] [place] [id number] [place] [address] 84764 2542 Jan, [facility] [address] [place] [id number] [place] [address] 48732- 2547 Jan, Primary insomnia F51.01 ; Type 2 diabetes mellitus with other diabetic kidney complication E11.29 ; Chronic pain syndrome G89.4 and Essential hypertension I10 [place] [address] [address]- 1047 Jan, Primary insomnia F51.01 [place] [address] [place] [address] [id number] [place] [address] 90943- 8036 Jan, Type 2 diabetes mellitus with other diabetic kidney complication E11.29 [place] [address] [place] [id number] [place] [address] 44402- 4016 Jan, [place] [address] [place] [id number] [place] [address] 66746- 4749 Jan, Chronic obstructive pulmonary disease, unspecified COPD type J44.9 [place] [address] [place] [id number] [place] [address] 40618- 9839 Jan, Essential hypertension I10 ; Type 2 diabetes mellitus with other diabetic kidney complication E11.29 ; Chronic obstructive pulmonary disease, unspecified COPD type J44.9 ; Chronic kidney disease, stage 4 (severe) N18.4 ; Right carpal tunnel syndrome G56.01 ; 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 ; intermediate card tender (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 and Diabetic polyneuropathy associated with type 2 diabetes mellitus E11.42 [place] [address] [place] [id number] [place] [address] 64417- 5994 Jan, Gastroesophageal reflux disease without esophagitis K21.9 [place] [address] [place] [id number] [place] [address] 88289- 7441 Dec, [place] [address] [place] [id number] [place] [address] 76870- 8495 Dec, [place] [address] [place] [id number] [place] [address] 75481- 0294 Dec, residential current use of anticoagulant Z79.01 ; Chronic pain syndrome G89.4 and Essential hypertension I10 [place] [address] [place] [id number] [place] [address] 61458- 1037 Dec, [place] [address] [place] [id number] [place] [address] 12345- 0895 Dec, Type 2 diabetes mellitus with other diabetic kidney complication E11.29 [facility] [address], [place] [address]- 7763 Dec, [facility] [address] [place] [id number] [place] [address] 06393- 8554 Dec, Gastroesophageal reflux disease without esophagitis K21.9 [facility] [address] [place] [id number] [place] [address] 66298- 2326 November, Type 2 diabetes mellitus with other diabetic kidney complication E11.29 [facility] [address] [id number] [place] [address] 20604- 7700 November, [facility] [address] [place] [id number] [place] [address] 86975- 5506 November, Type 2 diabetes mellitus with other diabetic kidney complication E11.29 [facility] [address] [place] [id number] [place] [address] 88328- 1066 November, [facility] [address] [place] [id number] [place] [address] 49649- 6665 November, Type 2 diabetes mellitus with other diabetic kidney complication E11.29 [facility] [address] [place] [address] 69570- 8939 November, [facility] [address] [place] [address] 81864- 6564 Oct, Essential hypertension I10 [facility] [address] [place] [id number] [place] [address] 06432- 3341 Oct, Psoriasis of scalp L40.9 [facility] [address] [place] [id number] [place] [address] 38625- 5939 Oct, Essential hypertension I10 and Chronic pain syndrome G89.4 [facility] [address] [place] [id number] [place] [address] 28522- 6125 Oct, [facility] [address] [place] [id number] [place] [address] 43321- 0693 Sep, Type 2 diabetes mellitus with other diabetic kidney complication E11.29 [place] [address] [place] [id number] [place] [address] 67822- 2551 Sep, [place] [address] [place] [id number] [place] [address] 21313- 0024 Sep, Type 2 diabetes mellitus with other diabetic kidney complication E11.29 [place] [address] [place] [id number] [place] [address] 72950- 3318 Sep, Type 2 diabetes mellitus with other diabetic kidney complication E11.29 [place] [address] [place] [id number] [place] [address] 66121- 6811 Sep, Type 2 diabetes mellitus with other [...] extremity R20.2 and Psoriasis of scalp L40.9 [place] [address] [place] [id number] [place] [address] 97363- 2870 Sep, [place] [address] [place] [id number] [place] [address] 54669- 0775 Aug, Essential hypertension I10 [place] [id number] [place] [address] 15598- 7943 Aug, History of DVT (deep vein thrombosis) Z86.718 [place] [address] [place] [id number] [place] [address] 02838- 2361 Aug, [place] [address] [place] [id number] [place] [address] 70101- 6872 Jul, [place] [address] 81596- 9650 Jul, [facility] [address], [place] [address]- 7589 Jul, intermediate card tender current use of anticoagulant Z79.01 ; Chronic pain syndrome G89.4 and Chronic kidney disease, stage 4 (severe) N18.4 [facility] [address], [place] [address]- 4997 Jul, [facility] [address] [place] [id number] [place] [address] 82907- 5649 Jul, [facility] [address], [place] [address]- 0208 Jul, [facility] [address] [address] [address]- 7378 Jul, [facility] [address], [place] [address]- 2875 Jul, [facility] [address], [place] [address]- 9286 Jul, Type 2 diabetes mellitus with other diabetic kidney complication E11.29 [facility] [address], [place] [address]- 7964 Jul, History of DVT (deep vein thrombosis) Z86.718 [facility] [address], [place] [address]- 9991 Jun, [facility] [address], [place] [address]- 3319 Jun, History of DVT (deep vein thrombosis) Z86.718 [facility] [address] [address]- 6580 Jun, Post traumatic stress disorder (PTSD) F43.10 [facility] [address], [place] [address]- 5388 07 Jun, 2016 Type 2 diabetes mellitus [...] pain M79.641 and Right wrist pain M25.531 [place] [address] [place] [id number] [place] [address] 51741- 9006 28 May, 2016 [place] [address] 11468- 0676 May, [place] [address] [place] [id number] [place] [address] 40443- 1271 May, [place] [address] [place] [id number] [place] [address] 32174- 1473 15 May, 2016 [place] [address] [place] [id number] [place] [address] 54875- 2962 May, Anemia in other chronic diseases classified elsewhere D63.8 [place] [address] [place] [id number] [place] [address] 59741- 4284 02 May, 2016 [place] [address] [place] [id number] [place] [address] 03802- 3302 10 Apr, 2016 [place] [address] 64042- 8452 27 Mar, 2016 Dermatofibroma D23.9 [facility] [address] [place] [id number] [place] [address] 09616- 8564 20 Mar, 2016 [place] [address] 77640- 4542 14 Mar, 2016 Chronic pain syndrome G89.4 [facility] [address], [place] [address]- 6232 09 Mar, 2016 [facility] [address], [place] [address]- 5753 Mar, [facility] [address], [place] [address]- 4186 Mar, [facility] [address], [place] [address]- 0791 Feb, [facility] [address], [place] [address]- 8403 Feb, [facility] [address] [address] [address]- 5423 Feb, [facility] [address], [place] [address]- 6831 Feb, [facility] [address], [place] [address]- 5446 Feb, [facility] [address], [place] [address]- 2628 Feb, [facility] [address], [place] [address]- 6677 Feb, Type 2 diabetes mellitus with other [...] failure, chronic, stage 4 (severe) N18.4 [facility] [address], [place] [address]- 1832 Feb, Skin tags, multiple acquired L91.8 [facility] [address], [place] [address]- 6672 Jan, [facility] [id number] [id number] Jan, Dental examination Z01.20 [place] [address], [place] [address]- 6903 Jan, [place] [address], [place] [address]- 6937 Jan, Type 2 diabetes mellitus with other diabetic kidney complication E11.29 ; Diabetic polyneuropathy associated with type 2 diabetes mellitus E11.42 ; Iron deficiency anemia due to chronic blood loss D50.0 ; Chronic obstructive pulmonary disease, unspecified COPD type J44.9 ; intermediate card tender current use of anticoagulant Z79.01 ; History of DVT (deep vein thrombosis) Z86.718 ; Chronic pain syndrome G89.4 ; Oxygen desaturation during sleep G47.34 ; Sleep apnea in adult G47.33 ; Gastroesophageal reflux disease without esophagitis K21.9 ; Essential hypertension I10 ; Primary insomnia F51.01 ; Depression, unspecified depression type F32.9 ; Skin lesion L98.9 and Renal failure, chronic, stage 4 (severe) N18.4 [place] [address], [place] [address]- 9135 Dec, Diabetes type 2, uncontrolled E11.65 [place] [address], [place] [address]- 6160 Dec, [place] [address], [place] [address]- 2543 Dec, Type 2 diabetes mellitus with other [...] F51.01 and Depression, unspecified depression type F32.9 [facility] [id number] [place] [address] [id number] Dec, Dental caries K02.9 [facility] [id number] [place] [address] [id number] Dec, [facility] [id number] [place] [address] [id number] Dec, Dental examination Z01.20 [facility] [id number] [place] [address] [id number] November, Dental examination Z01.20 and Dental caries K02.9 [facility] [id number] [place] [address] [id number] Oct, [facility] [id number] [place] [address] [id number] Oct, [facility] [address] [place] [address] [id number] Sep, [facility] [id number] [place] [address] [id number] Sep, [facility] [id number] [place] [address] [id number] Sep, [facility] [address] [place] [address] [id number] Sep, Other chronic pain 338.29 [facility] [id number] [place] [address] [id number] Aug, Diabetes type 2, uncontrolled E11.65 and Morbid obesity due to excess calories E66.01 [facility] [id number] [place] [address] [id number] Aug, Hair loss L65.9 [facility] [id number] [place] [address] [id number] Aug, [facility] [address] [place] [address] [id number] Jul, [facility] [id number] [place] [address] [id number] Jul, [place] [id number] [place] [address] [id number] Jun, [facility] [address] [place] [address] [id number] Jun, Hair loss L65.9 and Disorder of the skin and subcutaneous tissue, unspecified L98.9 [place] [id number] [place] [address] [id number] May, Type 2 diabetes mellitus with other diabetic kidney complication E11.29 ; Type 2 diabetes mellitus with hyperglycemia E11.65 ; Morbid obesity due to excess calories E66.01 and Essential hypertension I10 [place] [id number] [place] [address] [id number] May, Diabetes type 2, uncontrolled E11.65 ; Encounter for immunization Z23 and Morbid obesity due to excess calories E66.01 [place] [id number] [place] [address] [id number] May, [facility] [id number] [place] [address] [id number] Apr, [place] [id number] [place] [address] [id number] Apr, Hyperglycemia R73.9 [place] [id number] [place] [address] [id number] Apr, [place] [id number] [place] [address] [id number] Apr, Depression F32.9 ; Encounter for immunization Z23 ; Hyperglycemia R73.9 and Anemia in other chronic diseases classified elsewhere D63.8 [facility] [id number] [id number] Mar, [facility] [address] [place] [address] [id number] Feb, Positive occult stool blood test 792.[id number] [place] [address] [id number] Feb, Depression 311 ; Other chronic pain 338.29 and Diabetes with renal manifestations, type II or unspecified type, not stated as uncontrolled 250.40 [facility] [id number] [place] [address] [id number] 2627 Feb, Occult blood in stools 792.1 [facility] [id number] [place] [address] [id number] Feb, Anemia 285.9 ; Occult blood positive stool 792.1 ; Unspecified essential hypertension 401.9 and Other chronic pain 338.29 [facility] [id number] [place] [address] [id number] Feb, [facility] [id number] [place] [address] [id number] Feb, Anemia 285.9 [facility] [id number] [place] [address] [id number] Feb, [facility] [id number] [place] [address] [id number] Feb, [facility] [id number] [place] [address] [id number] Feb, Diabetes with renal manifestations, type II or unspecified type, not stated as uncontrolled 250.40 ; Other chronic pain 338.29 ; Unspecified essential hypertension 401.9 ; Anemia 285.9 and Depression 311 [facility] [id number] [place] [address] [id number] Jan, [id number] [place] [address] [id number] Jan, Anemia 285.9 and Follow up V67.9 [facility] [id number] [place] [address] [id number] Jan, [facility] [id number] [place] [address] [id number] Jan, [facility] [id number] [place] [address] [id number] Jan, [facility] [id number] [place] [address] [id number] Dec, [facility] [id number] [place] [address] 40980- 5476 Oct, [facility] [place] [facility] [address] [facility] [id number], [place] [address]- 8562 Oct, [facility] [place] [facility] [address] [facility] [id number], [place] [address]- 5206 Sep, [facility] [place] [address] [facility] [id number], [place] [id number] Sep, [facility] [place] [facility] [address] [facility] [id number], [place] [address]- 1576 Sep, [facility] [place] [address] [facility] [id number], [place] [id number] Aug, [facility] [place] [facility] [address] [facility] [id number], [place] [address]- 8896 Aug, [facility] [place] [facility] [address] [id number], [place] [address]- 7599 Aug, [facility] [place] [address] [facility] [id number], [place] [id number] Aug, [facility] [place] [facility] [address] [facility] [id number], [place] [address]- 4820 Aug, [facility] [place] [facility] [address] [facility] [id number], [place] [address]- 5686 Aug, [facility] [place] [address] [id number], [place] [id number] Aug, [facility] [place] [facility] [address] [facility] [id number], [place] [address]- 4186 Aug, [facility] [place] [address] [facility] [id number], [place] [id number] Jul, [facility] [place] [facility] [address] [facility] [id number], [place] [address]- 8086 Jul, [facility] [place] [facility] [address] [facility] [id number], [place] [address]- 8146 Jul, [facility] [place] [address] [id number], [place] [id number] Jul, [facility] [place] [facility] [address] [facility] [id number], [place] [address]- 8656 Jul, [facility] [place] [address] [facility] [id number] [place] [id number] Jul, [facility] [place] [facility] [address] [facility] [id number], [place] [address]- 2546 Jul, [facility] [place] [address] [facility] [id number] [place] [id number] Jun, [facility] [place] [address] [facility] [id number], [place] [id number] Jun, [facility] [place] [facility] [address] [facility] [id number] [place] [address]- 5896 Jun, [facility] [place] [facility] [address] [facility] [id number], [place] [address]- 8276 Jun, [facility] [place] [address] [facility] [id number], [place] [id number] Jun, [facility] [place] [facility] [address] [facility] [id number], [place] [address]- 2546 Jun, [facility] [place] [address] [facility] [id number], [place] [id number] May, [facility] [place] [facility] [address] [facility] [id number], [place] [address]- 6436 May, [facility] [place] [facility] [address] [facility] [id number], [place] [address]- 3086 May, [facility] [place] [address] [facility] [id number], [place] [id number] Apr, [facility] [place] [facility] [address] [facility] [id number], [place] [address]- 2546 Apr, [facility] [place] [address] [facility] [id number], [place] [id number] Apr, [facility] [place] [address] [facility] [id number], [place] [id number] Apr, [facility] [place] [facility] [address] [facility] [id number], [place] [address]- 1007 Apr, [facility] [place] [facility] [address] [id number] [place] [address]- 9183 Apr, [facility] [place] [address] [id number] [place] [id number] Mar, [facility] [place] [facility] [address] [facility] [id number] [place] [address]- 8356 Mar, [facility] [place] [address] [id number] [place] [id number] Mar, [facility] [place] [facility] [address] [id number] [place] [address]- 7433 Mar, [facility] [place] [address] [id number] [place] [id number] Mar, [facility] [place] [facility] [address] [facility] [id number] [place] [address]- 8210 Mar, [facility] [address] [id number] [place] [id number] Mar, [facility] [place] [facility] [address] [facility] [id number], [place] [address]- 5545 Mar, [facility] [place] [address] [id number] [place] [id number] Mar, [facility] [place] [facility] [address] [facility] [id number], [place] [address]- 7115 Mar, [facility] [place] [address] [id number] [place] [id number] Feb, [facility] [place] [facility] [address] [facility] [id number], [place] [address]- 9096 Feb, [facility] [place] [address] [id number] [place] [id number] Jan, [facility] [place] [facility] [address] [facility] [id number] [place] [address]- 2013 Jan, [facility] [place] [address] [id number] [place] [id number] Jan, [facility] [place] [facility] [address] [facility] [id number], [place] [address]- 6896 Jan, [facility] [place] [address] [id number] [place] [id number] Jan, [facility] [place] [facility] [address] [id number] [place] [address]- 2546 Jan, [facility] [place] [facility] [address] [id number] [place] [address]- 2546 Dec, [facility] [place] [facility] [address] [id number] [place] [address]- 2546 Dec, [facility] [place] [address] [id number] [place] [id number] November, [facility] [place] [facility] [address] [id number] [place] [address]- 7206 November, [facility] [place] [address] [id number] [place] [id number] November, [facility] [place] [facility] [address] [id number] [place] [address]- 1579 November, [facility] [place] [address] [id number], [place] [id number] Oct, [facility] [place] [facility] [address] [id number] [place] [address]- 8536 Oct, [facility] [place] [facility] [address] [facility] [id number] [place] [address]- 7647 Oct, [facility] [place] [facility] [address] [id number], [place] [address]- 2524 Oct, [facility] [place] [facility] [address] [id number] [place] [address]- 2546 Oct, [facility] [place] [facility] [address] [id number] [place] [address]- 2266 Oct, [facility] [place] [address] [id number] [place] [id number] Sep, [facility] [place] [address] [id number] [place] [id number] Sep, [facility] [place] [facility] [address] [facility] [id number], [place] [address]- 2736 Sep, [facility] [place] [facility] [address] [facility] [id number], [place] [address]- 9694 Sep, [facility] [place] [address] [facility] [id number], [place] [id number] Sep, [facility] [place] [facility] [address] [facility] [id number], [place] [address]- 3149 Sep, [facility] [place] [facility] [address] [facility] [id number], [place] [address]- 3247 Aug, [facility] [place] [facility] [address] [facility] [id number], [place] [address]- 8818 Aug, [facility] [place] [address] [facility] [id number], [place] [id number] Aug, [facility] [place] [address] [id number], [place] [id number] Aug, [facility] [place] [facility] [address]00565[address], [place] [address]- 4023 Aug, [facility] [place] [address] [facility] [id number], [place] [id number] Aug, [facility] [place] [facility] [address]00565[address], [place] [address]- 3204 Aug, [facility] [place] [address] [facility] [id number], [place] 685592619 Aug, [facility] [place] [facility] [address] [facility] [id number], [place] [address]- 3446 Aug, [facility] [place] [address] [facility] [id number], [place] [id number] Aug, [facility] [place] [facility] [address] [facility] [id number], [place] [address]- 1741 Aug, [facility] [place] [address] [facility] [id number], [place] 816662318 Aug, [facility] [place] [facility] [address]65[address], [place] [address]- 2546 Aug, [facility] [address] [id number], [place] [address]- 2546 Jul, [facility] [address] [facility] [id number], [place] 926390688 Jun, [facility] [address] [facility] [id number], [place] [address]- 2546 Jun, [facility] [address] [id number], [place] [address]- 2546 Jun, [facility] [address] [id number], [place] [address]- 2546 Jun, [facility] [address] [facility] [id number], [place] [id number] Jun, [facility] [address] [id number], [place] [address]- 2546 Jun, [facility] [address] [facility] [id number], [place] [address]- 8206 Jun, [facility] [address] [facility] [id number], [place] 910794325 Jun, [facility] [address] [id number], [place] [address]- 2546 Jun, [facility] [place] [facility] [address] [facility] [id number], [place] [address]- 2546 May, [facility] [address] [facility] [id number], [place] [id number] May, [facility] [place] [facility] [address] [id number], [place] [address]- 2546 May, [facility] [place] [facility] [address] [facility] [id number], [place] [address]- 2546 May, [facility] [place] [facility] [address] [facility] [id number], [place] [address]- 2546 May, [facility] [place] [facility] [address] [facility] [id number], [place] [address]- 9096 May, [facility] [address] [id number], [place] [id number] May, [facility] [place] [facility] [address] [facility] [id number], [place] [address]- 4436 May, [facility] [address] [id number], [place] [id number] May, [facility] [place] [facility] [address] [facility] [id number], [place] [address]- 0096 May, [facility] [place] [address] [id number], [place] 000103417 Apr, [facility] [place] [facility] [address] [facility] [id number], [place] [address]- 2568 Apr, [facility] [place] [facility] [address] [facility] [id number], [place] [address]- 9155 Apr, [facility] [address] [facility] [id number], [place] [id number] Apr, [facility] [place] [facility] [address] [facility] [id number], [place] 891524- 9348 Apr, [facility] [place] [facility] [address] [facility] [id number], [place] [address]- 6838 Apr, [facility] [address] [id number], [place] 586901253 Apr, [facility] [place] [facility] [address] [facility] [id number], [place] [address]- 7788 Apr, [facility] [place] [facility] [address] [facility] [id number], [place] [address]- 9588 Apr, [facility] [place] [facility] [address] [facility] [id number], [place] [address]- 0206 Apr, [facility] [place] [address] [facility] [id number], [place] 044268063 Apr, [facility] [place] [facility] [address] [facility] [id number], [place] [address]- 2534 Apr, [facility] [address] [id number], [place] 366251830 Apr, [facility] [address] [facility] [id number], [place] [address]- 1079 Apr, [facility] [place] [address] [id number], [place] 812189209 Apr, [facility] [place] [facility] [address] [facility] [id number], [place] [address]- 2874 Apr, [facility] [place] [facility] [address] [facility] [id number], [place] [address]- 4656 Apr, [facility] [address] [facility] [id number], [place] [address]- 3188 Apr, [facility] [place] [address] [id number], [place] 948242925 Apr, [facility] [address]65[address], [place] [address]- 4149 Mar, [facility] [address] [facility] [id number], [place] [address]- 3753 Mar, [facility] [place] [address] [id number], [place] [id number] Mar, [facility] [place] [address] [id number], [place] 578219671 Mar, [facility] [place] [address] [id number], [place] [id number] 16 Mar, 2013 [facility] [place] [address] [id number], [place] 561416606 Feb, [facility] [place] [address] [id number], [place] 051180880 Feb, [facility] [place] [address] [id number], [place] 166480759 Feb, [facility] [place] [facility] [address] [facility] [id number], [place] [address]- 3466 Feb, [facility] [place] [address] [id number], [place] 744074717 Feb, [facility] [place] [address] [id number], [place] 778976070 Feb, [facility] [place] [address] [id number] [place] 404685853 Feb, [facility] [place] [address] [id number] [place] 767513542 Feb, [facility] [place] [address] [id number] [place] 457702910 Feb, [facility] [place] [address] [id number] [place] 620441259 Jan, [facility] [place] [address] [id number] [place] 609378521 Jan, [facility] [place] [address] [id number] [place] 778925822 Jan, [facility] [place] [address] [id number] [place] 032766348 Jan, [facility] [place] [address] [id number] [place] 008640234 Jan, [facility] [address] [facility] [id number], [place] [address]- 2546 Jan, [facility] [place] [address] [id number] [place] 860966922 Jan, [facility] [place] [address] [id number] [place] 526131569 Jan, [facility] [place] [address] [id number] [place] 686547705 Dec, [facility] [place] [address] [id number] [place] 285415477 November, [facility] [place] [address] [id number] [place] 016805228 November, [facility] [place] [address] [id number] [place] 287265868 November, [facility] [place] [address] [id number] [place] 485079218 November, [facility] [place] [address] [id number] [place] 400396592 November, [facility] [place] [address] [id number] [place] 034744990 November, [facility] [place] [address] [id number] [place] 896689084 Jul, [facility] [place] [address] [id number] [place] 215381022 Jul, [facility] [place] [address] [id number] [place] 198600299 Jul, [facility] [place] [address] [id number] [place] 388534235 Jun, [facility] [place] [facility] [address] [facility] [id number], [place] [address]- 3578 Jun, [facility] [place] [address] [id number] [place] 186095047 May, [facility] [place] [facility] [address] [facility] [id number], [place] [address]- 5899 May, [facility] [place] [address] [facility] [id number] [place] 590926299 May, [facility] [address] [facility] [id number], [place] [address]- 6138 May, [facility] [place] [address] [facility] [id number] [place] 318340792 May, [facility] [place] [facility] [address] [facility] [id number], [place] [address]- 6643 May, [facility] [place] [address] [facility] [id number], [place] 693922570 Apr, [facility] [place] [facility] [address]00565[address], [place] [address]- 0767 Apr, [facility] [place] [facility] [address] [facility] [id number], [place] [address]- 3423 Apr, [facility] [place] [address] [id number], [place] 483527358 Apr, [facility] [place] [address] [facility] [id number], [place] 688889414 Apr, [facility] [place] [facility] [address] [facility] [id number], [place] [address]- 3178 Apr, [facility] [place] [facility] [address] [facility] [id number] [place] [address]- 6138 Apr, [facility] [place] [address] [id number] [place] [id number] Apr, [facility] [address] [facility] [id number] [place] [address]- 1585 Apr, [facility] [place] [address] [id number] [place] 626393311 Apr, [facility] [place] [address] [id number] [place] 398318187 Apr, [facility] [place] [address] [id number] [place] 629243596 Mar, [facility] [place] [address] [id number] [place] 341185934 Feb, [facility] [place] [address] [id number] [place] [id number] Jan, [facility] [place] [address] [id number] [place] [id number] Dec, [facility] [place] [address] [id number] [place] 259483764 Dec, [facility] [place] [address] [id number] [place] 046210953 Dec, [facility] [place] [address] [id number] [place] 122984175 Dec, [facility] [place] [address] [id number] [place] 753113714 Dec, [facility] [place] [address] [id number] [place] 851207190 November, [facility] [place] [address] [id number] [place] 344487469 November, [facility] [place] [address] [id number] [place] [id number] November, [facility] [address] [facility] [id number] [place] [address]- 8993 November, [facility] [place] [address] [id number], [place] 818320158 November, [facility] [place] [address] [id number] [place] [id number] November, [facility] [place] [address] [id number] [place] [id number] Oct, [facility] [place] [address] [id number] [place] 556282803 Oct, [facility] [place] [address] [id number] [place] [id number] Oct, [facility] [place] [address] [id number] [place] [id number] Oct, [facility] [place] [address] [id number] [place] 597581562 Oct, [facility] [place] [address] [id number] [place] [id number] Oct, [facility] [place] [address] [id number] [place] [id number] Sep, [facility] [place] [address] [id number] [place] [id number] Aug, [facility] [place] [address] [id number] [place] [id number] Aug, [facility] [place] [address] [id number] [place] [id number] Jul, [facility] [place] [facility] [id number] [address] Jun, [facility] [place] [facility] [id number] [address] Jun, [facility] [place] [facility] [id number] [address] Jun, [facility] [place] [facility] [address] [facility] [id number] [address] [address] Jun, [facility] [place] [facility] [id number] [place] [address] May, [facility] [place] [facility] [id number] [address] May, [facility] [place] [facility] [address] [id number] [place] [address] 25 Apr, 2011 [facility] [address] [id number] [place] [address] 17 Apr, 2011 [facility] [place] [facility] [address] [id number] [place] [address] 10 Apr, 2011 [facility] [place] [facility] [address] [id number] [place] [address] Feb, [facility] [place] [facility] [address] [id number] [place] [address] 15 Aug, 2010 [facility] [place] [facility] [address] [id number] [place] [address] Jul, [facility] [place] [facility] [address] [id number] [place] [address] Jun, [facility] [place] [facility] [address] [id number] [place] [address] May, [facility] [place] [facility] [address] [id number] [place] [address] May, [facility] [place] [facility] [address] [id number] [place] [address] May, [facility] [place] [facility] [address] [facility] [id number] [place] [address] May, [facility] [place] [facility] [address] [id number] [place] [address] May, [facility] [place] [facility] [address] [id number] [place] [address] Aug, [facility] [place] [facility] [address] [id number] [place] [address] 29 Jun, 2009 [facility] [place] [facility] [address] [id number] [place] [address] Jun, [facility] [place] [facility] [address] [id number] [place] [address] Jun, [facility] [address] [id number] [address] May, [facility] [address] [address] Apr, [facility] [address], [place] [address] Apr, [facility] [id number], [place] [address] Apr, [facility] [address] [address] Jan, [facility] [id number], [place] [address] Oct, [facility] [address] [address] May, [facility] [address], [place] [address] May, IMMUNIZATIONS No Known Immunizations SOCIAL HISTORY Never Assessed REASON FOR VISIT Refill request PLAN OF CARE VITAL SIGNS MEDICATIONS Medication Instructions Dosage Frequency Start Date End Date Duration Status Savella 100 mg Orally Twice a day 1 tablet 12h Active Cozaar 50 mg Orally Once a day 1 tablet 24h Active Gabapentin 600 MG Orally Three [...] Dialysis [facility] 2012 -Dr. Simon now [facility] Medical History Colonoscopy (polyps 2 ) [...]
--- OUTSIDE RECORDS SUMMARY | 2018-01-17 09:34 | XMS REPORT ---
Author Author CHELSY VILLAFANA [facility] Address [address] [place] [address] Care Team Providers [facility]ist Name Role Phone CHELSY VILLAFANA Unavailable PROBLEMS Type Condition ICD9-CM Code NCN47-VY Code Onset Dates Condition Status SNOMED Code Problem Chronic kidney disease, stage 4 (severe) N18.4 Active 532061004 Problem Psoriasis of scalp L40.9 Active 374872128 Problem Type 2 diabetes mellitus with hyperglycemia E11.65 Active 865909904900413 Problem Fibromyalgia M79.7 Active 323072592 Problem History of DVT (deep vein thrombosis) Z86.718 Active 807953242 Problem Carpal tunnel syndrome, bilateral G56.03 Active 56399412787733092 Problem Type 2 diabetes mellitus with other diabetic kidney complication E11.29 Active 883721204 Problem Anemia in other chronic diseases classified elsewhere D63.8 Active 938052684 Problem [facility] 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 Active 355927196 Problem Paresthesia of right upper extremity R20.2 Active 29220442 Problem Bilateral lower extremity edema R60.0 Active 190186811 Problem Supplemental oxygen dependent Z99.81 Active 250019096596 Problem Sleep apnea in adult G47.33 Active 39362660 Problem Chronic pain syndrome G89.4 Active 531740149 Problem 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 Active 447947959 Problem Essential hypertension I10 Active 37576571 Problem Gastroesophageal reflux disease without esophagitis K21.9 Active 098316134 Problem Chronic obstructive pulmonary disease, unspecified COPD type J44.9 Active 38681640 Problem 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 Active 451619995398334 Problem Primary insomnia F51.01 Active 1960768 Problem Oxygen desaturation during sleep G47.34 Active 987834762 Problem Right carpal tunnel syndrome G56.01 Active 516916982339181 Problem Diabetic polyneuropathy associated with type 2 diabetes mellitus E11.42 Active 51726992 Problem Depression, unspecified depression type F32.9 Active 83776078 ALLERGIES No Information ENCOUNTERS Encounter Location Date Diagnosis [id number] [id number] Dec, [id number] [place] [id number] Dec, [address] [id number] Dec, Essential hypertension I10 ; Type 2 diabetes mellitus with other diabetic kidney complication E11.29 ; Depression, unspecified depression type F32.9 ; Supplemental oxygen dependent Z99.81 ; Chronic pain syndrome G89.4 ; Fibromyalgia M79.7 ; Carpal tunnel syndrome, bilateral G56.03 and Chronic kidney disease, stage 4 (severe) N18.4 [facility] [id number] [place] [address] 78630- 5351 Dec, Essential hypertension I10 [facility] [address] [address]45- 1580 November, Type 2 diabetes mellitus with other diabetic kidney complication E11.29 [facility] [id number] [place] [address] 40082- 3597 November, Chronic pain syndrome G89.4 [facility] [id number] [place] [address] 51523- 7328 November, [facility] [id number] [place] [address] 76653- 1216 November, [facility] [id number] [place] [address] 29105- 6881 November, [facility] [id number] [place] [address] 18519- 7771 Oct, Type 2 diabetes mellitus with other diabetic kidney complication E11.29 [facility] [id number] [place] [address] 18700- 8814 Oct, Primary insomnia F51.01 [address] [id number] [place] [id number] Oct, Bilateral lower extremity edema R60.0 [place] [facility] [id number] [place] [address] 89556- 8846 Oct, [place] [id number] [place] [address] 03909- 7829 Sep, Type 2 diabetes mellitus with other diabetic kidney complication E11.29 and Chronic obstructive pulmonary disease, unspecified COPD type J44.9 [facility] [facility] [id number] [place] [address] 49463- 7958 15 Aug, 2017 Type 2 diabetes mellitus with other diabetic kidney complication E11.29 [facility] [id number] [place] [address] 48553- 8474 12 Aug, 2017 Gastroesophageal reflux disease without esophagitis K21.9 ; [facility] current use of anticoagulant Z79.01 ; Chronic pain syndrome G89.4 ; Essential hypertension I10 and Type 2 diabetes mellitus with other diabetic kidney complication E11.29 [facility] [id number] [place] [address] 03676- 0504 08 Aug, 2017 Chronic pain syndrome G89.4 [facility] [id number] [place] [address] 41263- 9899 Aug, Type 2 diabetes mellitus with other diabetic kidney complication E11.29 [facility] [id number] [place] [address] 38804- 2709 Jul, Diabetic polyneuropathy associated with type 2 diabetes mellitus E11.42 [facility] [id number] [place] [address] 77626- 8039 Jul, Primary insomnia F51.01 [facility] [id number] [place] [address] 11558- 8975 Jul, [facility] [facility] [id number] [place] [address] 02986- 3492 Jul, Type 2 diabetes mellitus with other diabetic kidney complication E11.29 and Chronic obstructive pulmonary disease, unspecified COPD type J44.9 [facility] [id number] [place] [address] 33708- 5400 Jul, Type 2 diabetes mellitus with other diabetic kidney complication E11.29 [facility] [address] [place] [address] 58134- 7084 Jun, Type 2 diabetes mellitus with other diabetic kidney complication E11.29 [facility] [address], [place] [address]- 4949 Jun, [facility] [facility] [id number] [place] [address] 98925- 4566 Jun, Chronic obstructive pulmonary disease, unspecified COPD type J44.9 [place] [id number] [place] [address] 10048- 2505 May, Type 2 diabetes mellitus with other diabetic kidney complication E11.29 [facility] [address] [place] [address] 29825- 9444 May, 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 and Essential hypertension I10 [facility] [facility] [address] [place] [address] 68169- 8297 May, Anemia in other chronic diseases classified elsewhere D63.8 ; Chronic obstructive pulmonary disease, unspecified COPD type J44.9 ; Oxygen desaturation during sleep G47.34 ; Sleep apnea in adult G47.33 and Supplemental oxygen dependent Z99.81 [address] [address] May, Type 2 diabetes mellitus with other diabetic kidney complication E11.29 ; Essential hypertension I10 ; Chronic pain syndrome G89.4 ; BMI 40.0-44.9, adult Z68.41 ; Gastroesophageal reflux disease without esophagitis K21.9 ; 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 ; 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 ; Diabetic polyneuropathy associated with type 2 diabetes mellitus E11.42 ; Edema of both legs R60.0 and Supplemental oxygen dependent Z99.81 [place] [address], [place] [address] 3517 May, [facility] [facility] [id number] [place] [address] 30750- 9199 May, Essential hypertension I10 and Gastroesophageal reflux disease without esophagitis K21.9 [facility] [id number] [place] [address] 70474- 8159 May, [facility] [id number] [place] [address] 98015- 6867 May, Type 2 diabetes mellitus with other diabetic kidney complication E11.29 and [facility] current use of anticoagulant Z79.01 [place] [id number] [place] [address] 78574- 4770 Apr, Chronic pain syndrome G89.4 and Essential hypertension I10 [facility] [facility] [id number] [place] [address] 76137- 4482 Apr, Type 2 diabetes mellitus with other diabetic kidney complication E11.29 [facility] [facility] [address] 37279- 1085 Apr, Type 2 diabetes mellitus with other diabetic kidney complication E11.29 [facility] [id number] [place] [address] 80434- 0272 Apr, Essential hypertension I10 [facility] [id number] [place] [address] 65968- 3045 Apr, Gastroesophageal reflux disease without esophagitis K21.9 [facility] [id number] [place] [address] 84490- 3580 Apr, Type 2 diabetes mellitus with other diabetic kidney complication E11.29 [facility] [id number] [place] [address] 96646- 7205 Apr, Type 2 diabetes mellitus with other diabetic kidney complication E11.29 and [facility] current use of anticoagulant Z79.01 [facility] [facility] [id number] [place] [address] 66482- 7766 Mar, Encounter for immunization Z23 and Preoperative examination Z01.818 [place] [facility] [address] 93673- 5960 Mar, [place] [address] [place] [address] 16389- 3173 Mar, Type 2 diabetes mellitus with other diabetic kidney complication E11.29 [facility] [id number] [place] [address] 59107- 5941 Mar, Type 2 diabetes mellitus with other diabetic kidney complication E11.29 [facility] [id number] [place] [address] 91857- 8721 Mar, Gastroesophageal reflux disease without esophagitis K21.9 [facility] [id number] [place] [address] 41588- 8278 Mar, Essential hypertension I10 [facility] [facility] [id number] [place] [address] 77452- 5861 Feb, 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 [place] [id number] [place] [address] 39868- 2757 Feb, Type 2 diabetes mellitus with other diabetic kidney complication E11.29 [facility] [id number] [place] [address] 45532- 0670 Feb, Type 2 diabetes mellitus with other diabetic kidney complication E11.29 [facility] [facility] [id number] [place] [address] 82530- 6801 Feb, Type 2 diabetes mellitus with other diabetic kidney complication E11.29 [facility] [id number] [place] [address] 72305- 2051 Feb, Gastroesophageal reflux disease without esophagitis K21.9 [facility] [id number] [place] [address] 05741- 7424 Feb, Type 2 diabetes mellitus with other diabetic kidney complication E11.29 [facility] [facility] [id number] [place] [address] 70184- 4578 Feb, 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 [id number] [address]- 8878 Jan, [facility] [address] [facility] [id number], [place] [address]- 1826 Jan, [facility] [id number], [place] [address]- 6616 Jan, [facility] [id number], [place] [address]- 2028 Jan, [facility] [address], [place] [address]- 6034 Jan, Primary insomnia F51.01 ; Type 2 diabetes mellitus with other diabetic kidney complication E11.29 ; Chronic pain syndrome G89.4 and Essential hypertension I10 [facility] [id number], [place] [address]- 9972 Jan, Primary insomnia F51.01 [facility] [address], [place] [address]- 5632 Jan, Type 2 diabetes mellitus with other diabetic kidney complication E11.29 [facility] [address] [facility] [id number] [address]- 5662 Jan, [facility] [address], [place] [address]- 2270 Jan, Chronic obstructive pulmonary disease, unspecified COPD type J44.9 [facility] [id number], [place] [address]- 9817 Jan, Essential hypertension I10 ; Type 2 diabetes mellitus with other diabetic kidney complication E11.29 ; Chronic obstructive pulmonary disease, unspecified COPD type J44.9 ; Chronic kidney disease, stage 4 (severe) N18.4 ; Right carpal tunnel syndrome G56.01 ; 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 ; [facility] (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 and Diabetic polyneuropathy associated with type 2 diabetes mellitus E11.42 [facility] [id number] [place] [address] 53535- 3031 Jan, Gastroesophageal reflux disease without esophagitis K21.9 [facility] [id number] [place] [address] 15117- 5348 Dec, [facility] [id number] [place] [address] 62568- 7884 Dec, [facility] [id number] [place] [address] 23835- 0913 Dec, [facility] current use of anticoagulant Z79.01 ; Chronic pain syndrome G89.4 and Essential hypertension I10 [facility] [id number] [place] [address] 19878- 8313 Dec, [facility] [id number] [place] [address] 85946- 4254 Dec, Type 2 diabetes mellitus with other diabetic kidney complication E11.29 [facility] [id number], [place] [address]- 8286 Dec, [facility] [id number] [place] [address] 00909- 4348 Dec, Gastroesophageal reflux disease without esophagitis K21.9 [facility] [id number], [place] [address]- 5202 November, Type 2 diabetes mellitus with other diabetic kidney complication E11.29 [facility] [id number], [place] [address]- 8178 November, [facility] [id number] [place] [address] 50129- 5388 November, Type 2 diabetes mellitus with other diabetic kidney complication E11.29 [facility] [address], [place] [address]- 6380 November, [facility] [id number] [place] [address] 78276- 6475 November, Type 2 diabetes mellitus with other diabetic kidney complication E11.29 [facility] [id number] [place] [address] 43564- 4631 November, [facility] [id number], [place] [address]- 8682 Oct, Essential hypertension I10 [facility] [facility] [id number] [place] [address] 22881- 4052 Oct, Psoriasis of scalp L40.9 [facility] [id number] [place] [address] 80516- 0134 Oct, Essential hypertension I10 and Chronic pain syndrome G89.4 [facility] [id number], [place] [address]- 8635 Oct, [facility] [id number] [place] [address] 57474- 6601 Sep, Type 2 diabetes mellitus with other diabetic kidney complication E11.29 [facility] [address], [place] [address]- 6864 Sep, [facility] [address], [place] [address]- 3794 Sep, Type 2 diabetes mellitus with other diabetic kidney complication E11.29 [facility] [address], [place] [address]- 1073 Sep, Type 2 diabetes mellitus with other diabetic kidney complication E11.29 [facility] [address], [place] [address]- 5864 Sep, Type 2 diabetes mellitus with other diabetic kidney complication E11.29 ; Chronic kidney disease, stage 4 (severe) N18.4 ; Chronic obstructive pulmonary disease, unspecified COPD type J44.9 ; Iron deficiency anemia due to chronic blood loss D50.0 ; 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 ; Gastroesophageal reflux disease without esophagitis K21.9 ; Essential hypertension I10 ; Primary insomnia F51.01 ; Depression, unspecified depression type F32.9 ; Chronic pain syndrome G89.4 ; Wrist pain, right M25.531 ; Paresthesia of right upper extremity R20.2 and Psoriasis of scalp L40.9 [place] [address] 33554- 1470 Sep, [place] [address] 13131- 5122 Aug, Essential hypertension I10 [address] 49983- 9484 Aug, History of DVT (deep vein thrombosis) Z86.[address] 46578- 5036 Aug, [place] [id number] [place] [address] 99225- 5560 Jul, [address] 86004- 5870 Jul, [place] [id number] [place] [address] 76099- 4918 Jul, [facility] current use of anticoagulant Z79.01 ; Chronic pain syndrome G89.4 and Chronic kidney disease, stage 4 (severe) N18.4 [place] [id number] [place] [address] 53045- 7279 Jul, [address] 55581- 4835 Jul, [place] [id number] [place] [address] 73643- 4819 Jul, [address] 52781- 9996 Jul, [place] [address], [place] [address]- 4409 Jul, [address] [place] [address] 79027- 5332 Jul, Type 2 diabetes mellitus with other diabetic kidney complication E11.29 [address] [place] [address] 18601- 0289 Jul, History of DVT (deep vein thrombosis) Z86.718 [place] [id number] [place] [address] 86623- 5437 Jun, [place] [id number] [place] [address] 49807- 3959 Jun, History of DVT (deep vein thrombosis) Z86.718 [place] [id number] [place] [address] 89067- 3410 15 Jun, 2016 Post traumatic stress disorder (PTSD) F43.10 [address] [place] [address] 22593- 0234 07 Jun, 2016 Type 2 diabetes mellitus with other diabetic kidney complication E11.29 ; Diabetic polyneuropathy associated with type 2 diabetes mellitus E11.42 ; Iron deficiency anemia due to chronic blood loss D50.0 ; Chronic obstructive pulmonary disease, unspecified COPD type J44.9 ; [facility] current use of anticoagulant Z79.01 ; History [...] pain M79.641 and Right wrist pain M25.531 [address] [place] [address] 16822- 7305 May, [facility] [address] [facility] [id number] [place] [address]- 9266 May, [facility] [address] [facility] [id number] [place] [address], [place] [address] 2545 May, [facility] [id number] [place] [address]- 9388 May, [facility] [address] [facility] [id number] [place] [address], [place] [address]- 7367 May, Anemia in other chronic diseases classified elsewhere D63.8 [facility] [address] [facility] [id number] [place] [address], [place] [address]- 1420 May, [facility] [id number] [place] [address], [place] [address]- 2416 Apr, [facility] [id number] [place] [address] 19125- 1547 27 Mar, 2016 Dermatofibroma D23.9 [facility] [id number] [place] [address]- 9181 20 Mar, 2016 [facility] [id number] [place] [address], [place] [address]- 6691 14 Mar, 2016 Chronic pain syndrome G89.4 [facility] [address] [place] [address]- 7181 09 Mar, 2015 [facility] [id number], [place] [address] 2542 07 Mar, 2015 [facility] [id number] [place] [address]- 2542 Mar, [facility] [id number] [place] [address], [place] [address]- 254 Feb, [facility] [address] [facility] [id number] [place] [address]- 4151 Feb, [facility] [id number] [place] [address] 98856- 6391 Feb, [facility] [id number], [place] [address]- 5995 Feb, [facility] [address], [place] [address]- 2085 Feb, [facility] [address], [place] [address]- 4807 Feb, [place] [id number] [place] [address] 03101- 0178 Feb, Type 2 diabetes mellitus with other diabetic kidney complication E11.29 ; Diabetic polyneuropathy associated with type 2 diabetes mellitus E11.42 ; Iron deficiency anemia due to chronic blood loss D50.0 ; Chronic obstructive pulmonary disease, unspecified COPD type J44.9 ; 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 ; History of DVT (deep vein thrombosis) Z86.718 ; Chronic pain syndrome G89.4 ; Oxygen desaturation during sleep G47.34 ; Sleep apnea in adult G47.33 ; Gastroesophageal reflux disease without esophagitis K21.9 ; Essential hypertension I10 ; Primary insomnia F51.01 ; Depression, unspecified depression type F32.9 and Renal failure, chronic, stage 4 (severe) N18.4 [place] [id number] [place] [address] 02379- 6350 Feb, Skin tags, multiple acquired L91.8 [address], [place] [address]- 9208 Jan, [facility] [id number] [id number] Jan, Dental examination Z01.20 [place] [address], [place] [address]- 3182 Jan, [place] [id number] [place] [address] 48735- 4445 Jan, Type 2 diabetes mellitus with other diabetic kidney complication E11.29 ; Diabetic polyneuropathy associated with type 2 diabetes mellitus E11.42 ; Iron deficiency anemia due to chronic blood loss D50.0 ; Chronic obstructive pulmonary disease, unspecified COPD type J44.9 ; [facility] current use of anticoagulant Z79.01 ; History [...] stage 4 (severe) N18.4 [facility] [id number] [place] [address] 18049- 4522 Dec, Diabetes type 2, uncontrolled E11.[address] 53141- 3908 Dec, [address] 59270- 3796 Dec, Type 2 diabetes mellitus with other diabetic kidney complication E11.29 ; Diabetic polyneuropathy associated with type 2 diabetes mellitus E11.42 ; Iron deficiency anemia due to chronic blood loss D50.0 ; Chronic obstructive pulmonary disease, unspecified COPD type J44.9 ; [facility] current use of anticoagulant Z79.01 ; History of DVT (deep vein thrombosis) Z86.718 ; Chronic pain syndrome G89.4 ; Oxygen desaturation during sleep G47.34 ; Sleep apnea in adult G47.33 ; Gastroesophageal reflux disease without esophagitis K21.9 ; Essential hypertension I10 ; Primary insomnia F51.01 and Depression, unspecified depression type F32.9 [facility] [id number] [place] [address] [id number] Dec, Dental caries K02.9 [facility] [address] [facility] [id number] [place] [address] [id number] Dec, [facility] [address] [id number] [place] [address] [id number] Dec, Dental examination Z01.20 [facility] [id number] [place] [address] [id number] November, Dental examination Z01.20 and Dental caries K02.9 [facility] [id number] [id number] Oct, [facility] [id number] [place] [address] [id number] Oct, [facility] [address] [id number][place] [id number] Sep, [facility] [address] [id number] [place] [address] [id number] Sep, [facility] [address] [id number] [place] [address] [id number] Sep, [facility] [id number] [place] [address] [id number] Sep, Other chronic pain 338.29 [facility] [id number] [place] [address] [id number] Aug, Diabetes type 2, uncontrolled E11.65 and Morbid obesity due to excess calories E66.01 [facility] [id number] [place] [address] [id number] Aug, Hair loss L65.9 [facility] [id number] [place] [address] [id number] Aug, [facility] [id number] [place] [address] [id number] Jul, [facility] [id number] [place] [address] [id number] Jul, [facility] [id number], [place] [id number] Jun, [facility] [id number] [place] [address] [id number] Jun, Hair loss L65.9 and Disorder of the skin and subcutaneous tissue, unspecified L98.9 [facility] [id number] [place] [address] [id number] May, Type 2 diabetes mellitus with other diabetic kidney complication E11.29 ; Type 2 diabetes mellitus with hyperglycemia E11.65 ; Morbid obesity due to excess calories E66.01 and Essential hypertension I10 [facility] [id number] [place] [address] [id number] May, Diabetes type 2, uncontrolled E11.65 ; Encounter for immunization Z23 and Morbid obesity due to excess calories E66.01 [id number] [place] [address] [id number] May, [facility] [address] [place] [address] 44371- 2737 Apr, [address] [id number] [place] [address] [id number] Apr, Hyperglycemia R73.9 [address] [id number] [place] [address] [id number] Apr, [address] [id number] Apr, Depression F32.9 ; Encounter for immunization Z23 ; Hyperglycemia R73.9 and Anemia in other chronic diseases classified elsewhere D63.8 [facility] [id number] [place] [address] [id number] Mar, [address] [id number] [place] [address] [id number] Feb, Positive occult stool blood test 792.1 [address] [id number] [place] [address] [id number] Feb, Depression 311 ; Other chronic pain 338.29 and Diabetes with renal manifestations, type II or unspecified type, not stated as uncontrolled 250.40 [facility] [address]00565100[place] [address] Feb, Occult blood in stools 792.[address] [place] [address] [id number] Feb, Anemia 285.9 ; Occult blood positive stool 792.1 ; Unspecified essential hypertension 401.9 and Other chronic pain 338.29 [address] [place] [address] [id number] Feb, [address] [id number] [place] [address] [id number] Feb, Anemia 285.[id number] [place] [address] [place] [id number] Feb, [facility] [id number], [place] [id number] Feb, [facility] [id number] [place] [address] [id number] Feb, Diabetes with renal manifestations, type II or unspecified type, not stated as uncontrolled 250.40 ; Other chronic pain 338.29 ; Unspecified essential hypertension 401.9 ; Anemia 285.9 and Depression 311 [facility] [id number] [place] [address] [id number] Jan, [facility] [id number] [place] [address] [id number] Jan, Anemia 285.9 and Follow up V67.9 [facility] [id number] [place] [address] [id number] Jan, [facility] [id number] [place] [address] [id number] Jan, [facility] [id number] [place] [address] [id number] Jan, [facility] [id number] [place] [address] [id number] Dec, [facility] [id number] [place] [address] 46588- 0406 Oct, [facility] [id number] [place] [address] 76203- 7305 Oct, [facility] [id number] [place] [address] 11404- 2546 Sep, [facility] [address] [id number][place] [id number] Sep, [facility] [id number] [place] [address] 63375- 3751 Sep, [facility] [id number], [place] [id number] Aug, [facility] [id number] [place] [address] 11578- 4433 Aug, [facility] [place] [facility] [address] [id number], [place] [address]- 3466 Aug, [facility] [address] [id number] [place] [id number] Aug, [facility] [place] [facility] [address] [facility] [id number] [place] [address]- 1696 Aug, [facility] [place] [facility] [address] [facility] [id number] [place] [address]- 5546 Aug, [facility] [address] [id number], [place] [id number] Aug, [facility] [place] [facility] [address] [facility] [id number] [place] [address]- 4886 Aug, [facility] [address] [facility] [id number], [place] [id number] Jul, [facility] [place] [facility] [address]00565100[place], [place] [address]- 9166 Jul, [facility] [place] [facility] [address] [id number], [place] [address]- 2824 Jul, [facility] [address] [facility] [id number], [place] [id number] Jul, [facility] [place] [facility] [address]00565100[place], [place] [address]- 0176 Jul, [facility] [address] [facility] [id number], [place] [id number] Jul, [facility] [place] [facility] [address] [facility] [id number], [place] [address]- 0766 Jul, [facility] [address] [id number] [place] [id number] Jun, [facility] [address] [facility] [id number], [place] [id number] Jun, [facility] [place] [facility] [address] [id number], [place] [address]- 2342 Jun, [facility] [place] [facility] [address] [facility] [id number], [place] [address]- 3681 Jun, [facility] [address] [id number] [place] [id number] Jun, [facility] [place] [facility] [address] [facility] [id number], [place] [address]- 1355 Jun, [facility] [address] [id number] [place] [id number] May, [facility] [place] [facility] [address] [facility] [id number], [place] 226434- 0185 May, [facility] [place] [facility] [address] [facility] [id number], [place] [address]- 9363 May, [facility] [address] [id number], [place] [id number] Apr, [facility] [place] [facility] [address] [facility] [id number], [place] 102833- 8401 Apr, [facility] [address] [id number], [place] [id number] Apr, [facility] [address] [facility] [id number], [place] [id number] Apr, [facility] [place] [facility] [address] [facility] [id number], [place] 673550- 3329 Apr, [facility] [place] [facility] [address] [facility] [id number], [place] [address]- 7589 Apr, [facility] [address] [id number], [place] [id number] Mar, [facility] [place] [facility] [address] [facility] [id number], [place] 00148669- 0641 18 Mar, 2014 [facility] [address] [id number], [place] [id number] Mar, [facility] [place] [facility] [address] [facility] [id number], [place] 993866- 2856 17 Mar, 2014 [facility] [address] [facility] [id number], [place] [id number] 16 Mar, 2014 [facility] [place] [facility] [address] [facility] [id number] [place] [address]- 3316 Mar, [facility] [address] [id number] [place] [id number] Mar, [facility] [place] [facility] [address] [facility] [id number] [place] [address]- 1096 Mar, [facility] [address] [id number] [place] [id number] Mar, [facility] [place] [facility] [address] [id number] [place] [address]- 5389 Mar, [facility] [address] [id number] [place] 319863950 Feb, [facility] [place] [facility] [address] [facility] [id number] [place] [address]- 0286 Feb, [facility] [address] [id number] [place] [id number] Jan, [facility] [place] [facility] [address] [facility] [id number] [place] [address]- 6690 Jan, [facility] [address] [facility] [id number] [place] [id number] Jan, [facility] [place] [facility] [address] [facility] [id number] [place] [address]- 6947 Jan, [facility] [address] [id number] [place] [id number] Jan, [facility] [place] [facility] [address] [facility] [id number] [place] [address]- 4361 Jan, [facility] [place] [facility] [address] [facility] [id number] [place] [address]- 9885 Dec, [facility] [place] [facility] [address] [facility] [id number] [place] [address]- 5198 Dec, [facility] [address] [id number] [place] [id number] November, [facility] [place] [facility] [address] [facility] [id number] [place] [address]- 8337 November, [facility] [address] [id number] [place] [id number] November, [facility] [place] [facility] [address] [id number] [place] [address]- 0623 November, [facility] [address] [facility] [id number] [place] [id number] Oct, [facility] [place] [facility] [address] [facility] [id number] [place] [address]- 1759 Oct, [facility] [place] [facility] [address] [facility] [id number] [place] [address]- 4379 Oct, [facility] [place] [facility] [address] [facility] [id number] [place] [address]- 3129 Oct, [facility] [place] [facility] [address] [facility] [id number] [place] [address]- 5362 Oct, [facility] [place] [facility] [address] [facility] [id number] [place] [address]- 3700 Oct, [facility] [address] [facility] [id number], [place] [id number] Sep, [facility] [address] [facility] [id number], [place] [id number] Sep, [facility] [place] [facility] [address] [facility] [id number], [place] [address]- 0211 Sep, [facility] [place] [facility] [address] [facility] [id number], [place] [address]- 9602 Sep, [facility] [address] [facility] [id number], [place] [id number] Sep, [facility] [place] [facility] [address] [facility] [id number] [place] [address]- 6646 Sep, [facility] [place] [facility] [address] [facility] [id number], [place] [address]- 3506 Aug, [facility] [place] [facility] [address] [facility] [id number], [place] [address]- 5421 Aug, [facility] [address] [facility] [id number], [place] [id number] Aug, [facility] [address] [id number] [place] [id number] Aug, [facility] [place] [facility] [address] [facility] [id number], [place] [address]- 0556 Aug, [facility] [address] [facility] [id number] [place] [id number] Aug, [facility] [place] [facility] [address] [facility] [id number], [place] [address]- 9756 Aug, [facility] [address] [facility] [id number] [place] [id number] Aug, [facility] [place] [facility] [address] [id number], [place] [address]- 1826 Aug, [facility] [address] [facility] [id number] [place] 833421385 Aug, [facility] [place] [facility] [address] [id number], [place] [address]- 8246 Aug, [facility] [address] [facility] [id number] [place] [id number] Aug, [facility] [place] [facility] [address] [id number], [place] [address]- 3900 Aug, [facility] [place] [facility] [address] [id number], [place] [address]- 0068 Jul, [facility] [address] [facility] [id number], [place] 070378439 Jun, [facility] [place] [facility] [address] [facility] [id number], [place] [address]- 7821 Jun, [facility] [place] [facility] [address] [facility] [id number], [place] [address]- 8480 Jun, [facility] [place] [facility] [address] [facility] [id number], [place] [address]- 5776 Jun, [facility] [address] [facility] [id number], [place] [id number] Jun, [facility] [place] [facility] [address] [id number], [place] [address]- 3136 Jun, [facility] [place] [facility] [address] [id number] [place] [address]- 2506 Jun, [facility] [address] [facility] [id number], [place] [id number] Jun, [facility] [place] [facility] [address] [id number] [place] [address]- 0446 Jun, [facility] [place] [facility] [address] [id number] [place] [address]- 6625 May, [facility] [address] [facility] [id number], [place] [id number] May, [facility] [place] [facility] [address] [facility] [id number] [place] [address]- 6056 May, [facility] [place] [facility] [address] [id number], [place] [address]- 8197 May, [facility] [place] [facility] [address] [facility] [id number], [place] [address]- 5230 May, [facility] [place] [facility] [address] [facility] [id number], [place] [address]- 3256 May, [facility] [address] [facility] [id number], [place] 030422053 May, [facility] [place] [facility] [address] [facility] [id number], [place] [address]- 2546 May, [facility] [address] [facility] [id number], [place] [id number] May, [facility] [place] [facility] [address] [id number], [place] [address]- 2546 May, [facility] 120 [facility][1] [id number], [place] [id number] Apr, [facility] [place] [facility] [address] [facility] [id number], [place] [address]- 2846 Apr, [facility] [place] [facility] [address] [facility] [id number], [place] [address]- 0325 Apr, [facility] 120 [facility][1] [id number], [place] 929867112 Apr, [facility] [place] [facility] [address] [facility] [id number], [place] [address]- 6236 Apr, [facility] [address] [facility] [id number], [place] [address]- 8277 Apr, [facility] [address] [facility] [id number], [place] [id number] Apr, [facility] [place] [facility] [address] [facility] [id number], [place] [address]- 1995 Apr, [facility] [place] [facility] [address] [facility] [id number], [place] [address]- 3656 Apr, [facility] [place] [facility] [address] [facility] [id number], [place] [address]- 9372 Apr, [facility] [address] [facility] [id number], [place] [id number] Apr, [facility] [place] [facility] [address] [facility] [id number], [place] [address]- 7990 Apr, [facility] [address] [id number], [place] 737724566 Apr, [facility] [place] [facility] [address] [facility] [id number], [place] [address]- 1788 Apr, [facility] [address] [facility] [id number], [place] [id number] Apr, [facility] [place] [facility] [address] [facility] [id number], [place] [address]- 1912 Apr, [facility] [place] [facility] [address] [facility] [id number], [place] [address]- 9894 Apr, [facility] [place] [facility] [address] [facility] [id number], [place] [address]- 4386 Apr, [facility] 120 [facility][1] [id number], [place] [id number] Apr, [facility] [place] [facility] [address] [facility] [id number], [place] [address]- 0006 Mar, [facility] [address] [facility] [id number], [place] [address]- 7007 Mar, [facility] [address] [id number] [place] [id number] Mar, [facility] [address] [id number] [place] [id number] Mar, [facility] [address] [id number] [place] [id number] Mar, [facility] [address] [id number] [place] [id number] Feb, [facility] [address] [id number] [place] [id number] Feb, [facility] [address] [id number] [place] [id number] Feb, [facility] [address] [facility] [id number], [place] [address] Feb, [facility] [address] [id number] [place] [id number] Feb, [facility] [address] [id number] [place] [id number] Feb, [facility] [address] [id number] [place] [id number] Feb, [facility] [address] [id number] [place] [id number] Feb, [facility] [address] [id number] [place] [id number] Feb, [facility] [address] [id number] [place] [id number] Jan, [facility] [address] [id number] [place] [id number] Jan, [facility] [address] [id number] [place] [id number] Jan, [facility] [address] [id number] [place] [id number] Jan, [facility] [address] [id number] [place] [id number] Jan, [facility] [address] [facility] [facility] [id number], [place] [address] Jan, [facility] [address] [id number] [place] [id number] Jan, [facility] [address] [id number] [place] [id number] Jan, [facility] [place] [address] [id number] [place] [id number] Dec, [facility] [address] [id number] [place] [id number] November, [facility] [address] [id number] [place] [id number] November, [facility] [address] [id number] [place] [id number] November, [facility] [address] [id number] [place] [id number] November, [facility] [address] [id number] [place] [id number] November, [facility] [address] [id number] [place] [id number] November, [facility] [address] [id number] [place] [id number] Jul, [facility] [address] [id number] [place] [id number] Jul, [facility] [address] [id number] [place] [id number] Jul, [facility] [address] [id number] [place] [id number] Jun, [facility] [address] [facility] [id number], [place] [address] Jun, [facility] [address] [id number] [place] [id number] May, [facility] [address]00565[place] [address] May, [facility] [address] [id number][place] [id number] May, [facility] [address] [facility] [id number], [place] [address] May, [facility] [address] [id number][place] [id number] May, [facility] [address] [facility] [facility] [id number], [place] [address] May, [facility] [address] [id number][place] [id number] Apr, [facility] [address] [facility] [id number] [place] [address] Apr, [facility] [address] [facility] [id number], [place] [address] Apr, [facility] [place] [address] [id number][place] [id number] Apr, [facility] [address] [id number][place] [id number] Apr, [facility] [id number], [place] [address] Apr, [facility] [address] [id number], [place] [address] Apr, [facility] [place] [address] [id number], [place] [id number] Apr, [facility] [address] [facility] [id number], [place] [address] Apr, [facility] [address] [id number][place] [id number] Apr, [facility] [address] [id number][place] [id number] Apr, [facility] [address] [id number][place] [id number] Mar, [facility] [address] [id number][place] [id number] Feb, [facility] [place] [address] [id number] [place] [id number] Jan, [facility] [address] [id number] [place] [id number] Dec, [facility] [place] [address] [id number] [place] [id number] Dec, [facility] [place] [address] [id number] [place] [id number] Dec, [facility] [place] [address] [id number] [place] [id number] Dec, [facility] [address] [id number] [place] [id number] Dec, [facility] [address] [id number] [place] [id number] November, [facility] [address] [id number] [place] [id number] November, [facility] [address] [id number] [place] [id number] November, [facility] [address] [facility] [id number], [place] [address] November, [facility] [address] [id number] [place] [id number] November, [facility] [address] [id number] [place] [id number] November, [facility] [address] [id number] [place] [id number] Oct, [facility] [address] [id number] [place] [id number] Oct, [facility] [address] [id number] [place] [id number] Oct, [facility] [address] [id number] [place] [id number] Oct, [facility] [address] [id number] [place] [id number] Oct, [facility] [address] [id number] [place] [id number] Oct, [facility] [address] [id number] [id number] Sep, [facility] [address] [id number] [place] [id number] Aug, [facility] [address] [id number] [place] [id number] Aug, [facility] [address] [id number] [place] [id number] Jul, [facility] [place] [facility] [address] [facility] [id number], [place] [address] Jun, [facility] [place] [facility] [address] [id number], [place] [address] Jun, [facility] [place] [facility] [address] [facility] [facility] [id number], [place] [address] Jun, [facility] [place] [facility] [id number], [place] [address] Jun, [facility] [place] [facility] [address] [id number], [place] [address] May, [facility] [place] [facility] [address] [id number], [place] [address] May, [facility] [place] [facility] [id number], [place] [address] Apr, [facility] [place] [facility] [id number], [place] [address] Apr, [facility] [place] [facility] [address] [id number], [place] [address] Apr, [facility] [place] [facility] [address] [facility] [id number], [place] [address] Feb, [facility] [place] [facility] [address] [id number], [place] [address] 15 Aug, 2010 [facility] [place] [facility] [address] [facility] [id number], [place] [address] Jul, [facility] [place] [facility] [address] [id number], [place] [address] 30 Jun, 2010 [facility] [address] [id number] [place] [address] May, [facility] [place] [facility] [address] [id number], [place] [address] May, [facility] [address] [facility] [id number] [place] [address] May, [facility] [place] [facility] [address] [id number] [place] [address] May, [facility] [address] [id number] [place] [address], [place] [address] May, [facility] [place] [facility] [address] [facility] [id number] [place] [address] Aug, [facility] [address] [facility] [id number], [place] [address] Jun, [facility] [place] [facility] [address] [facility] [id number], [place] [address] Jun, [facility] [address] [facility] [id number], [place] [address] Jun, [facility] [place] [facility] [address] [facility] [id number], [place] [address] 24 May, 2009 [facility] [place] [facility] [address] [facility] [id number], [place] [address] 28 Apr, 2009 [facility] [place] [facility] [address] [facility] [id number], [place] [address] 27 Apr, 2009 [facility] [place] [facility] [address] [facility] [id number], [place] [address] 15 Apr, 2009 [facility] [place] [facility] [address] [facility] [id number], [place] [address] 20 Jan, 2009 [facility] [place] [facility] [address] [facility] [id number], [place] [address] 13 Oct, 2008 [facility] [place] [facility] [address] [facility] [id number] [place] [address] May, [facility] [address] [facility] [id number] [place] [address] May, IMMUNIZATIONS No Known Immunizations SOCIAL HISTORY Never Assessed REASON FOR VISIT Refill request PLAN OF CARE VITAL SIGNS MEDICATIONS Medication Instructions Dosage Frequency Start Date End Date Duration Status Advair Diskus 100 mcg-50 mcg inhalation bid, rinse mouth afterwards 1 puffs Active Test strips ... True Test Active RESULTS No Results PROCEDURES No Known [...] Dialysis [facility] 2012 -Dr. Simon now [facility] Medical History Colonoscopy (polyps 2 ) [...]
--- OUTSIDE RECORDS SUMMARY | 2018-01-17 09:41 | XMS REPORT ---
Author Author CHELSY VILLAFANA [facility] Address [address] [place] [address] Care Team Providers Care White Mixing Operator Name Role Phone CHELSY VILLAFANA Unavailable PROBLEMS Type Condition ICD9-CM Code RUL24-TV Code Onset Dates Condition Status SNOMED Code Problem Chronic pain syndrome G89.4 Active 331227798 Problem Type 2 diabetes mellitus with hyperglycemia E11.65 Active 980621091115198 Problem Primary insomnia F51.01 Active 9509056 Problem Bilateral lower extremity edema R60.0 Active 922432495 Problem Anemia in other chronic diseases classified elsewhere D63.8 Active 489718655 Problem Supplemental oxygen dependent Z99.81 Active 501294689808 Problem Right carpal tunnel syndrome G56.01 Active 442150113887683 Problem 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 Active 949754304980342 Problem Paresthesia of right upper extremity R20.2 Active 41833155 Problem Chronic kidney disease, stage 4 (severe) N18.4 Active 280315450 Problem 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 Active 892944688 Problem Psoriasis of scalp L40.9 Active 500507239 Problem Gastroesophageal reflux disease without esophagitis K21.9 Active 101218186 Problem Chronic obstructive pulmonary disease, unspecified COPD type J44.9 Active 90302963 Problem Type 2 diabetes mellitus with other diabetic kidney complication E11.29 Active 221531794 Problem Diabetic polyneuropathy associated with type 2 diabetes mellitus E11.42 Active 55356776 Problem History of DVT (deep vein thrombosis) Z86.718 Active 531554992 Problem assisted current use of anticoagulant Z79.01 Active 623173988 Problem Oxygen desaturation during sleep G47.34 Active 145553055 Problem Essential hypertension I10 Active 73444267 Problem Depression, unspecified depression type F32.9 Active 38100343 Problem Sleep apnea in adult G47.33 Active 45836296 ALLERGIES Substance Reaction Event Type Date Status Sulfamethoxazole-Trimethoprim hives Drug Allergy May, Active Penicillin V Potassium anaphylaxis Drug Allergy May, Active plastic tape rash Non Drug Allergy May, Active ENCOUNTERS Encounter Location Date Diagnosis [facility] [address] [place] [address] 06841- 7296 November, Type 2 diabetes mellitus with other diabetic kidney complication E11.29 [facility] [id number] [place] [address] 49196- 5227 November, Chronic pain syndrome G89.4 [facility] [id number] [place] [address] 55752- 7245 November, [facility] [id number] [place] [address] 18295- 1472 November, [facility] [id number] [place] [address] 71893- 1555 November, [facility] [id number] [place] [address] 18579- 6589 Oct, Type 2 diabetes mellitus with other diabetic kidney complication E11.29 [facility] [address] [place] [address] 20817- 5680 Oct, Primary insomnia F51.01 [facility] [id number] [place] [id number] Oct, Bilateral lower extremity edema R60.0 [facility] [address] [place] [address] 48705- 3051 Oct, [facility] [address] [place] [address] 64926- 3611 Sep, Type 2 diabetes mellitus with other diabetic kidney complication E11.29 and Chronic obstructive pulmonary disease, unspecified COPD type J44.9 [facility] [address] [place] [address] 96502- 3597 Aug, Type 2 diabetes mellitus with other diabetic kidney complication E11.29 [facility] [address] [place] [address] 77297- 8355 12 Feb, 2018 Gastroesophageal reflux disease without esophagitis K21.9 ; 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 ; Chronic pain syndrome G89.4 ; Essential hypertension I10 and Type 2 diabetes mellitus with other diabetic kidney complication E11.29 [place] [address] [place] [address] 82876- 1667 08 Aug, 2017 Chronic pain syndrome G89.4 [facility] [facility] [id number] [place] [address] 59042- 7601 Aug, Type 2 diabetes mellitus with other diabetic kidney complication E11.29 [facility] [id number] [place] [address] 42783- 2824 Jul, Diabetic polyneuropathy associated with type 2 diabetes mellitus E11.42 [facility] [facility] [id number] [place] [address] 40814- 0207 Jul, Primary insomnia F51.01 [place] [facility] [id number] [place] [address] 79957- 6524 Jul, [facility] [id number] [place] [address] 81796- 7266 Jul, Type 2 diabetes mellitus with other diabetic kidney complication E11.29 and Chronic obstructive pulmonary disease, unspecified COPD type J44.9 [place] [address] [place] [address] 70426- 4205 Jul, Type 2 diabetes mellitus with other diabetic kidney complication E11.29 [facility] [id number] [address] 0872 Jun, Type 2 diabetes mellitus with other diabetic kidney complication E11.29 [facility] [facility] [id number] [address]- 9476 Jun, [place] [id number] [place] [address] 25148- 3659 Jun, Chronic obstructive pulmonary disease, unspecified COPD type J44.9 [facility] [facility] [id number] [place] [address] 05805- 9180 May, Type 2 diabetes mellitus with other diabetic kidney complication E11.29 [place] [address] [address]- 1183 May, assisted current use of anticoagulant Z79.01 and Essential hypertension I10 [place] [id number] [place] [address] 60767- 5625 May, Anemia in other chronic diseases classified elsewhere D63.8 ; Chronic obstructive pulmonary disease, unspecified COPD type J44.9 ; Oxygen desaturation during sleep G47.34 ; Sleep apnea in adult G47.33 and Supplemental oxygen dependent Z99.81 [place] [id number] [place] [address] 69816- 0789 May, Type 2 diabetes mellitus with other diabetic kidney complication E11.29 ; Essential hypertension I10 ; Chronic pain syndrome G89.4 ; BMI 40.0-44.9, adult Z68.41 ; Gastroesophageal reflux disease without esophagitis K21.9 ; assisted current use of anticoagulant Z79.01 ; 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 ; Diabetic polyneuropathy associated with type 2 diabetes mellitus E11.42 ; Edema of both legs R60.0 and Supplemental oxygen dependent Z99.81 [place] [id number] [place] [address] 34692- 8966 May, [facility] [id number] [place] [address] 62574- 4310 May, Essential hypertension I10 and Gastroesophageal reflux disease without esophagitis K21.9 [place] [id number] [place] [address] 35346- 3217 May, [place] [id number] [place] [address] 50346- 9823 May, Type 2 diabetes mellitus with other diabetic kidney complication E11.29 and assisted current use of anticoagulant Z79.01 [place] [facility] [id number] [place] [address] 83913- 3098 Apr, Chronic pain syndrome G89.4 and Essential hypertension I10 [place] [address] [place] [address]- 9836 Apr, Type 2 diabetes mellitus with other diabetic kidney complication E11.29 [facility] [id number] [place] [address] 16074- 3278 Apr, Type 2 diabetes mellitus with other diabetic kidney complication E11.29 [facility] [id number] [place] [address] 76846- 9939 Apr, Essential hypertension I10 [facility] [id number] [place] [address] 33247- 0121 Apr, Gastroesophageal reflux disease without esophagitis K21.9 [place] [id number] [place] [address] 04904- 1693 Apr, Type 2 diabetes mellitus with other diabetic kidney complication E11.29 [place] [id number] [place] [address] 47458- 2114 Apr, Type 2 diabetes mellitus with other diabetic kidney complication E11.29 and 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 [facility] [id number] [place] [address] 16136- 4849 Mar, Encounter for immunization Z23 and Preoperative examination Z01.818 [facility] [id number] [place] [address] 55730- 4397 Mar, [facility] [id number] [place] [address] 03875- 3268 Mar, Type 2 diabetes mellitus with other diabetic kidney complication E11.29 [facility] [address] [place] [address] 03464- 3009 Mar, Type 2 diabetes mellitus with other diabetic kidney complication E11.29 [facility] [id number] [place] [address] 62705- 4988 Mar, Gastroesophageal reflux disease without esophagitis K21.9 [facility] [id number] [place] [address] 93575- 0003 Mar, Essential hypertension I10 [place] [address], [place] [address] 2546 Feb, assisted current use of anticoagulant Z79.01 [facility] [address] [facility] [id number] [address] 2546 Feb, Type 2 diabetes mellitus with other diabetic kidney complication E11.29 [facility] [address], [place] [address] 2546 Feb, Type 2 diabetes mellitus with other diabetic kidney complication E11.29 [facility] [address] [place] [address] 96880 2546 Feb, Type 2 diabetes mellitus with other diabetic kidney complication E11.29 [facility] [address] [place] [address] 56661 2546 Feb, Gastroesophageal reflux disease without esophagitis K21.9 [facility] [id number] [place] [address] 46005 2546 Feb, Type 2 diabetes mellitus with other diabetic kidney complication E11.29 [facility] [address], [place] [address] 2546 Feb, 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 [facility] [address], [place] [address] 2546 Jan, Type 2 diabetes mellitus with other diabetic kidney complication E11.29 [facility] [address], [place] [address] 2546 Jan, Type 2 diabetes mellitus with other diabetic kidney complication E11.29 [facility] [address], [place] [address] 2546 Jan, Chronic pain syndrome G89.4 [facility] [address], [place] [address] 2546 Jan, [facility] [address], [place] [address] 2546 Jan, [facility] [id number] [address]- 6824 Jan, [facility] [address], [place] [address]- 8883 Jan, [facility] [address], [place] [address]- 7452 Jan, Primary insomnia F51.01 ; Type 2 diabetes mellitus with other diabetic kidney complication E11.29 ; Chronic pain syndrome G89.4 and Essential hypertension I10 [facility] [address], [place] [address]- 9335 Jan, Primary insomnia F51.01 [place] [facility] [id number] [place] [address] 41847- 1448 Jan, Type 2 diabetes mellitus with other diabetic kidney complication E11.29 [facility] [id number] [address]- 9506 Jan, [facility] [address] [address]- 6808 Jan, Chronic obstructive pulmonary disease, unspecified COPD type J44.9 [place] [address] [place] [address] 54551- 4624 Jan, Essential hypertension I10 ; Type 2 diabetes mellitus with other diabetic kidney complication E11.29 ; Chronic obstructive pulmonary disease, unspecified COPD type J44.9 ; Chronic kidney disease, stage 4 (severe) N18.4 ; Right carpal tunnel syndrome G56.01 ; 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 ; ferry terminal agent (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 and Diabetic polyneuropathy associated with type 2 diabetes mellitus E11.42 [place] [address], [place] [address]- 2889 Jan, Gastroesophageal reflux disease without esophagitis K21.9 [facility] [address], [place] [address]- 0630 Dec, [facility] [id number] [place] [address] 90970- 6610 Dec, [facility] [address], [place] [address]- 9552 Dec, assisted current use of anticoagulant Z79.01 ; Chronic pain syndrome G89.4 and Essential hypertension I10 [facility] [address] [place] [address] 18657- 4739 Dec, [facility] [id number] [place] [address] 40387- 6870 Dec, Type 2 diabetes mellitus with other diabetic kidney complication E11.29 [facility] [id number] [place] [address] 52432- 4727 Dec, [facility] [id number] [place] [address] 07382- 1546 Dec, Gastroesophageal reflux disease without esophagitis K21.9 [facility] [id number] [place] [address] 90347- 4069 November, Type 2 diabetes mellitus with other diabetic kidney complication E11.29 [facility] [id number] [place] [address] 04638- 0720 November, [facility] [id number] [place] [address] 46677- 4562 November, Type 2 diabetes mellitus with other diabetic kidney complication E11.29 [facility] [address], [place] [address]- 9891 November, [facility] [id number] [place] [address] 46686- 7066 November, Type 2 diabetes mellitus with other diabetic kidney complication E11.29 [facility] [id number] [place] [address] 89873- 9175 November, [facility] [address] [address]- 7728 Oct, Essential hypertension I10 [facility] [id number] [place] [address] 10799- 1159 Oct, Psoriasis of scalp L40.9 [facility] [facility] [address] [address]- 5752 Oct, Essential hypertension I10 and Chronic pain syndrome G89.4 [place] [facility] [address] [address]- 5268 Oct, [facility] [id number] [place] [address] 35799- 2032 Sep, Type 2 diabetes mellitus with other diabetic kidney complication E11.29 [facility] [facility] [id number] [place] [address] 45335- 0964 Sep, [facility] [id number] [place] [address] 95818- 4014 Sep, Type 2 diabetes mellitus with other diabetic kidney complication E11.29 [facility] [facility] [id number] [place] [address] 28803- 4636 Sep, Type 2 diabetes mellitus with other diabetic kidney complication E11.29 [facility] [id number] [place] [address] 37606- 6781 Sep, Type 2 diabetes mellitus with other diabetic kidney complication E11.29 ; Chronic kidney disease, stage 4 (severe) N18.4 ; Chronic obstructive pulmonary disease, unspecified COPD type J44.9 ; Iron deficiency anemia due to chronic blood loss D50.0 ; 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 ; Gastroesophageal reflux disease without esophagitis K21.9 ; Essential hypertension I10 ; Primary insomnia F51.01 ; Depression, unspecified depression type F32.9 ; Chronic pain syndrome G89.4 ; Wrist pain, right M25.531 ; Paresthesia of right upper extremity R20.2 and Psoriasis of scalp L40.9 [place] [address] [place] [address] 68371- 3265 Sep, [place] [address], [place] [address]- 1619 Aug, Essential hypertension I10 [address] [place] [address] 84651- 4661 Aug, History of DVT (deep vein thrombosis) Z86.718 [facility] [id number] [place] [address] 74278- 5407 14 Aug, 2016 [facility] [id number] [place] [address] 41237- 3691 Jul, [facility] [id number] [place] [address] 78151- 2006 Jul, [facility] [id number] [place] [address] 77612- 7310 Jul, 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 ; Chronic pain syndrome G89.4 and Chronic kidney disease, stage 4 (severe) N18.4 [facility] [id number] [place] [address] 16480- 8233 Jul, [facility] [id number] [place] [address] 50211- 7804 Jul, [facility] [id number] [place] [address] 89616- 3657 Jul, [facility] [id number] [place] [address] 33044- 0247 Jul, [facility] [id number] [place] [address] 31206- 1162 Jul, [facility] [id number] [place] [address] 25836- 0295 Jul, Type 2 diabetes mellitus with other diabetic kidney complication E11.29 [facility] [id number] [place] [address] 50982- 7171 Jul, History of DVT (deep vein thrombosis) Z86.718 [facility] [id number] [place] [address] 35482- 9335 Jun, [facility] [id number] [place] [address] 51910- 6424 19 Jun, 2016 History of DVT (deep vein thrombosis) Z86.718 [place] [id number] [place] [address] 75773- 4559 15 Jun, 2016 Post traumatic stress disorder (PTSD) F43.10 [facility] [id number] [place] [address] 04029- 6501 07 Jun, 2016 Type 2 diabetes mellitus with other diabetic kidney complication E11.29 ; Diabetic polyneuropathy associated with type 2 diabetes mellitus E11.42 ; Iron deficiency anemia due to chronic blood loss D50.0 ; Chronic obstructive pulmonary disease, unspecified COPD type J44.9 ; 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 ; History [...] and Right wrist pain M25.531 [place] [id number] [place] [address] 33553- 3041 May, [facility] [id number] [place] [address] 90078- 8044 May, [facility] [id number] [place] [address] 38402- 4299 May, [facility] [id number] [place] [address] 66671- 4007 May, [facility] [facility] [address] 99109- 5473 May, Anemia in other chronic diseases classified elsewhere D63.8 [place] [id number] [place] [address] 01927- 5288 May, [place] [address] [facility] [id number] [place] [address] 2546 10 Apr, 2016 [facility] [address] [facility] [id number] [place] [address] 2546 27 Mar, 2016 Dermatofibroma D23.9 [facility] [address] [facility] [id number] [place] [address] 2546 20 Mar, 2015 [facility] [address] [place] [address] 254 14 Mar, 2016 Chronic pain syndrome G89.4 [facility] [address] [facility] [id number] [place] [address] 2546 09 Mar, 2015 [facility] [address] [facility] [id number] [place] [address]- 5850 07 Mar, 2015 [facility] [address] [place] [address]- 6945 06 Mar, 2015 [facility] [address] [place] [id number] [place] [address]- 6468 30 Feb, 2016 [facility] [address] [place] [address] 2545 Feb, [facility] [address] [place] [id number] [place] [address] 2542 Feb, [facility] [id number], [place] [address]- 3342 Feb, [facility] [id number] [address]- 2549 Feb, [facility] [address] [facility] [id number] [place] [address]- 2883 15 Feb, 2016 [facility] [id number] [address]- 1410 Feb, 2016 Type 2 diabetes mellitus with [...] 4 (severe) N18.4 [facility] [address] 43801- 7827 Feb, Skin tags, multiple acquired L91.8 [facility] [address] [place] [address] 59130- 9983 Jan, [facility] [address] [id number] Jan, Dental examination Z01.20 [facility] [address] [place] [address] 23580- 0512 Jan, [facility] [address] 27214- 4195 Jan, Type 2 diabetes mellitus with other diabetic kidney complication E11.29 ; Diabetic polyneuropathy associated with type 2 diabetes mellitus E11.42 ; Iron deficiency anemia due to chronic blood loss D50.0 ; Chronic obstructive pulmonary disease, unspecified COPD type J44.9 ; 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 ; History [...] N18.4 [facility] [address] 57298- 5933 Dec, Diabetes type 2, uncontrolled E11.65 [facility] [address] [place] [address] [address]- 7400 Dec, [facility] [id number] [place] [address] 80514- 7992 Dec, Type 2 diabetes mellitus with other [...] F51.01 and Depression, unspecified depression type F32.9 [facility] [id number] [place] [address] [id number] Dec, Dental caries K02.9 [facility] [id number] [place] [id number] Dec, [facility] [address] [id number] Dec, Dental examination Z01.20 [facility] [address] [id number] November, Dental examination Z01.20 and Dental caries K02.9 [facility] [id number] [place] [address] [id number] Oct, [facility] [id number] [place] [address] [id number] Oct, [facility] [id number] [place] [address] [id number] Sep, [facility] [address] [place] [address] [phone] Sep, [facility] [id number] [place] [address] [id number] Sep, [facility] [id number] [place] [address] [phone] Sep, Other chronic pain [address] [place] [id number] [place] [id number] 17 Aug, 2015 Diabetes type 2, uncontrolled E11.65 and Morbid obesity due to excess calories E66.01 [facility] [id number] [place] [address] [id number] Aug, Hair loss L65.9 [facility] [id number] [place] [address] [id number] Aug, [facility] [place] [id number] [place] [address] [id number] Jul, [facility] [place] [id number] [place] [address] [id number] Jul, [facility] [place] [id number] [place] [address] [id number] Jun, [facility] [place] [id number] [place] [address] [id number] Jun, Hair loss L65.9 and Disorder of the skin and subcutaneous tissue, unspecified L98.9 [facility] [place] [id number] [place] [address] [id number] May, Type 2 diabetes mellitus with other diabetic kidney complication E11.29 ; Type 2 diabetes mellitus with hyperglycemia E11.65 ; Morbid obesity due to excess calories E66.01 and Essential hypertension I10 [facility] [id number] [place] [address] [id number] May, Diabetes type 2, uncontrolled E11.65 ; Encounter for immunization Z23 and Morbid obesity due to excess calories E66.01 [facility] [id number] [place] [id number] May, [facility] [id number] [place] [address]297- 9863 Apr, [facility] [place] [id number] [place] [address] [id number] Apr, Hyperglycemia R73.9 [facility] [place] [id number] [place] [id number] Apr, [facility] [id number] [place] [address] [id number] Apr, Depression F32.9 ; Encounter for immunization Z23 ; Hyperglycemia R73.9 and Anemia in other chronic diseases classified elsewhere D63.8 [facility] [place] [id number] [id number] Mar, [facility] [address]00565100[place] [id number] Feb, Positive occult stool blood test 792.1 [id number] [place] [address] [id number] Feb, Depression 311 ; Other chronic pain 338.29 and Diabetes with renal manifestations, type II or unspecified type, not stated as uncontrolled 250.40 [facility] [address]00565100[place] [address]- [address] Feb, Occult blood in stools 792.[address] [place] [address] [id number] Feb, Anemia 285.9 ; Occult blood positive stool 792.1 ; Unspecified essential hypertension 401.9 and Other chronic pain 338.29 [address] [place] [address] [id number] Feb, [id number] [place] [address] [id number] Feb, Anemia 285.9 [address]00565100[place] [id number] Feb, [address] [place] [address] [id number] Feb, [address] [place] [address] [id number] Feb, Diabetes with renal manifestations, type II or unspecified type, not stated as uncontrolled 250.40 ; Other chronic pain 338.29 ; Unspecified essential hypertension 401.9 ; Anemia 285.9 and Depression [address] [place] [address] [id number] Jan, [address] [place] [address] [id number] Jan, Anemia 285.9 and Follow up V67.9 [facility] [place] [address] [id number] [place] [id number] Jan, [facility] [place] [address] [id number] [place] [id number] Jan, [facility] [place] [address] [id number] [place] [id number] Jan, [facility] [place] [address] [id number] [place] [id number] Dec, [facility] [place] [facility] [address] [id number] [address]- 8049 Oct, [facility] [place] [facility] [address] [id number], [place] [address]- 0363 Oct, [facility] [place] [facility] [address]00565100[place], [place] [address]- 1352 Sep, [facility] [place] [address] [id number] [place] [id number] Sep, [facility] [place] [facility] [address]00565100[place], [place] [address]- 9108 Sep, [facility] [place] [address] [facility] [id number] [place] [id number] Aug, [facility] [place] [facility] [address]00565100[place], [place] [address]- 1153 Aug, [facility] [place] [facility] [address]00565100[place], [place] [address]- 8566 Aug, [facility] [place] [address] [id number] [place] [id number] Aug, [facility] [place] [facility] [address] [id number]- 0506 Aug, [facility] [place] [facility] [address]00565100[place] 4480[place]- 4000 Aug, [facility] [place] [address] [facility] [id number] [place] [id number] Aug, [facility] [place] [facility] [address]00565100[place] [address]- 5039 Aug, [facility] [place] [address] [id number] [place] [id number] Jul, [facility] [place] [facility] [address] [id number] [place] [address]- 8107 Jul, [facility] [place] [facility] [address] [facility] [id number], [place] [address]- 4976 Jul, [facility] [place] [address] [id number] [place] [id number] Jul, [facility] [place] [facility] [address] [id number] [place] [address]- 1979 Jul, [facility] [place] [address] [id number] [place] [id number] Jul, [facility] [place] [facility] [address] [facility] [id number][place] [address]- 0541 Jul, [facility] [place] [address] [id number] [place] [id number] Jun, [facility] [place] [address] [id number] [place] [id number] Jun, [facility] [place] [facility] [address] [facility] [id number], [place] [address]- 4273 Jun, [facility] [place] [facility] [address] [facility] [id number][place] [address]- 8281 Jun, [facility] [place] [address] [id number] [place] [id number] Jun, [facility] [place] [facility] [address] [facility] [id number], [place] [address]- 7752 Jun, [facility] [place] [address] [id number] [place] [id number] May, [facility] [place] [facility] [address] [facility] [id number][place] [address]- 1155 May, [facility] [place] [facility] [address] [facility] [id number], [place] [address]- 1359 May, [facility] [place] [address] [id number] [place] [id number] Apr, [facility] [place] [facility] [address] [id number] [place] [address]- 0420 Apr, [facility] [place] [address] [id number] [place] [id number] Apr, [facility] [place] [address] [id number] [place] [id number] Apr, [facility] [place] [facility] [address] [facility] [id number] [place] [address]- 4348 Apr, [facility] [place] [facility] [address] [facility] [id number] [place] [address]- 4870 Apr, [facility] [place] [address] [id number] [place] [id number] Mar, [facility] [place] [facility] [address]00565100[place], [place] [address]- 8597 Mar, [facility] [place] [address] [facility] [id number] [place] [id number] Mar, [facility] [place] [facility] [address] [facility] [id number], [place] [address]- 1508 Mar, [facility] [place] [address] [id number] [place] 980461577 Mar, [facility] [place] [facility] [address] [facility] [id number], [place] [address]- 3731 Mar, [facility] [place] [address] [id number] [place] 088655074 Mar, [facility] [place] [facility] [address] [facility] [id number], [place] [address]- 8327 Mar, [facility] [place] [address] [id number] [place] [id number] Mar, [facility] [place] [facility] [address] [facility] [id number], [place] [address]- 6664 Mar, [facility] [place] [address] [facility] [id number] [place] [id number] Feb, [facility] [place] [facility] [address] [facility] [id number][place] [address]- 2546 Feb, [facility] [place] [address] [id number] [place] [id number] Jan, [facility] [place] [facility] [address] [id number] [place] [address]- 3576 Jan, [facility] [place] [address] [id number] [place] [id number] Jan, [facility] [place] [facility] [address] [id number] [place] [address]- 0230 Jan, [facility] [place] [address] [id number] [place] [id number] Jan, [facility] [place] [facility] [address] [id number] [place] [address]- 8966 Jan, [facility] [place] [facility] [address] [facility] [id number] [place] [address]- 8794 Dec, [facility] [place] [facility] [address] [facility] [id number] [place] [address]- 3683 Dec, [facility] [place] [address] [id number] [place] [id number] November, [facility] [place] [facility] [address] [id number] [place] [address]- 5411 November, [facility] [place] [address] [id number] [place] [id number] November, [facility] [place] [facility] [address] [id number] [place] [address]- 8278 November, [facility] [place] [address] [id number] [place] [id number] Oct, [facility] [place] [facility] [address] [id number] [place] [address]- 2625 Oct, [facility] [place] [facility] [address] [facility] [id number] [place] [address]- 4682 Oct, [facility] [place] [facility] [address] [id number] [place] [address]- 6296 Oct, [facility] [place] [facility] [address] [facility] [id number], [place] [address]- 7466 Oct, [facility] [place] [facility] [address] [facility] [id number][place] [address]- 7466 Oct, [facility] [place] [address] [facility] [id number] [place] [id number] Sep, [facility] [place] [address] [facility] [id number] [place] [id number] Sep, [facility] [place] [facility] [address] [facility] [id number], [place] [address]- 4102 Sep, [facility] [place] [facility] [address] [facility] [id number], [place] [address]- 1299 Sep, [facility] [place] [address] [facility] [id number] [place] 534548860 Sep, [facility] [place] [facility] [address]00565[address], [place] [address]- 5498 Sep, [facility] [place] [facility] [address]00565100[place], [place] [address]- 9055 Aug, [facility] [place] [facility] [address]00565[address], [place] [address]- 4182 Aug, [facility] [place] [address] [facility] [id number] [place] [id number] Aug, [facility] [place] [address] [id number] [place] [id number] Aug, [facility] [place] [facility] [address] [facility] [id number][place] [address]- 9493 Aug, [facility] [place] [address] [facility] [id number] [place] [id number] Aug, [facility] [place] [facility] [address] [facility] [id number], [place] [address]- 8066 Aug, [facility] [place] [address] [facility] [id number] [place] [id number] Aug, [facility] [place] [facility] [address] [facility] [id number], [place] [address]- 2546 Aug, [facility] [place] [address] [facility] [id number] [place] [id number] Aug, [facility] [address] [id number], [place] [address]- 2546 Aug, [facility] [place] [address] [id number] [place] 810405111 Aug, [facility] [address] [facility] [id number], [place] [address]- 2546 Aug, [facility] [place] [facility] [address] [facility] [id number], [place] [address]- 2546 Jul, [facility] [place] [address] [id number] [place] 511057539 Jun, [facility] [place] [facility] [address]00565[address], [place] [address]- 0576 Jun, [facility] [place] [facility] [address]65[address], [place] [address]- 5176 Jun, [facility] [place] [facility] [address] [id number], [place] [address]- 7336 Jun, [facility] [place] [address] [id number] [place] 602893855 Jun, [facility] [place] [facility] [address]00565[address], [place] [address]- 2546 Jun, [facility] [place] [facility] [address]00565[address], [place] [address]- 2546 Jun, [facility] [place] [address] [facility] [id number] [place] 684230216 Jun, [facility] [place] [facility] [address] [facility] [id number], [place] [address]- 2546 Jun, [facility] [place] [facility] [address] [facility] [id number][place] [address]- 2546 May, [facility] [place] [address] [id number] [place] [id number] May, [facility] [place] [facility] [address] [id number], [place] [address]- 3653 May, [facility] [place] [facility] [address] [id number] [place] [address]- 1741 May, [facility] [place] [facility] [address] [id number] [place] [address]- 8815 May, [facility] [place] [facility] [address] [id number], [place] [address]- 7441 May, [facility] [place] [address] [facility] [id number] [place] 894488334 May, [facility] [place] [facility] [address] [id number], [place] [address]- 8826 May, [facility] [place] [address] [id number] [place] 825775450 May, [facility] [address]00565[address], [place] [address]- 6035 May, [facility] [place] [address] [id number] [place] 803957875 Apr, [facility] [place] [facility] [address] [id number], [place] [address]- 2622 Apr, [facility] [place] [facility] [address] [facility] [id number], [place] [address]- 7837 Apr, [facility] [place] [address]00565[address] [id number] Apr, [facility] [place] [facility] [address] [id number], [place] [address]- 3629 Apr, [facility] [place] [facility] [address] [id number], [place] [address]- 7108 Apr, [facility] [place] 120 [facility] [id number] [place] 376680085 Apr, [facility] [place] [facility] [address] [facility] [id number], [place] [address]- 3795 Apr, [facility] [place] [facility] [address] [facility] [id number], [place] [address]- 9260 Apr, [facility] [address] [facility] [id number], [place] [address]- 9523 Apr, [facility] [place] [address] [id number] [place] 066904259 Apr, [facility] [address] [facility] [id number], [place] [address]- 2546 Apr, [facility] [place] [address] [id number] [place] 245854987 Apr, [facility] [address] [facility] [id number], [place] [address]- 7681 Apr, [facility] [place] [address] [id number] [place] 994287706 Apr, [facility] [address]00565100[place], [place] [address]- 6106 Apr, [facility] [address] [facility] [id number], [place] [address]- 5308 Apr, [facility] [address] [facility] [id number], [place] [address]- 3867 Apr, [facility] [place] [address] [id number] [place] 758020687 Apr, [facility] [address] [id number], [place] [address]- 2386 Mar, [facility] [address] [facility] [id number], [place] [address]- 4204 Mar, [facility] [place] [address] [id number] [place] 138917935 Mar, [facility] [place] [address] [id number] [place] 018049394 Mar, [facility] [place] [address] [id number] [place] 547766619 Mar, [facility] [place] [address] [id number] [place] 784842106 Feb, [facility] [place] [address] [id number] [place] 318082095 Feb, [facility] [place] [address] [id number] [place] 4[place]00218 Feb, [facility] [address] [facility] [id number], [place] 15875195- 5643 Feb, [facility] [address] [id number] [place] 957353437 Feb, [facility] [place] [address] [id number] [place] 778834502 Feb, [facility] [place] [address] [id number] [place] 786956453 Feb, [facility] [place] [address] [id number] [place] 750042178 Feb, [facility] [place] [address] [id number] [place] 067840418 Feb, [facility] [place] [address] [id number] [place] 354394210 Jan, [facility] [place] [address] [id number] [place] 071552794 Jan, [facility] [place] [address] [id number] [place] 006307576 Jan, [facility] [place] [address] [id number] [place] 593492097 Jan, [facility] [place] [address] [id number] [place] 860744789 Jan, [facility] [address] [facility] [id number], [place] 65144811- 7110 Jan, [facility] [place] [address] [id number] [place] 815016868 Jan, [facility] [place] [address] [id number] [place] 794302511 Jan, [facility] [place] [address] [id number] [place] 952746026 Dec, [facility] [place] [address] [id number] [place] 624501589 November, [facility] [place] [address] [id number] [place] 316384580 November, [facility] [place] [address] [id number] [place] 594490154 November, [facility] [place] [address] [id number] [place] 928469363 November, [facility] [place] [address] [id number] [place] 126108884 November, [facility] [place] [address] [id number] [place] 376441504 November, [facility] [place] [address] [id number] [place] 450390811 Jul, [facility] [place] [address] [id number] [place] 818801520 Jul, [facility] [place] [address] [id number] [place] 668542658 Jul, [facility] [place] [address] [id number] [place] [id number] Jun, [facility] [address] [facility] [id number], [place] [address]- 6729 Jun, [facility] [place] [address] [id number] [place] 894345633 May, [facility] [place] [facility] [address] [facility] [id number], [place] [address]- 6008 May, [facility] [place] [address] [id number] [place] 273561794 May, [facility] [place] [facility] [address] [facility] [id number], [place] [address]- 9832 May, [facility] [place] [address] [id number] [place] 646259967 May, [facility] [place] [facility] [address] [facility] [id number], [place] [address]- 0142 May, [facility] [place] [address] [id number] [place] [id number] Apr, [facility] [address] [facility] [id number], [place] [address]- 3244 Apr, [facility] [place] [facility] [address] [facility] [id number], [place] [address]- 0213 Apr, [facility] [place] [address] [id number] [place] 707733463 Apr, [facility] [place] [address] [id number] [place] 746970389 Apr, [facility] [address] [facility] [id number], [place] [address]- 5210 Apr, [facility] [address] [facility] [id number], [place] [address]- 0292 Apr, [facility] [place] [address] [id number] [place] 205520517 Apr, [facility] [address] [facility] [id number][place] [address]- 1206 Apr, [facility] [place] [address] [id number] [place] 123198541 Apr, [facility] [place] [address] [id number] [place] 904243954 Apr, [facility] [place] [address] [id number] [place] [id number] Mar, [facility] [place] [id number] [place] [address] [id number] Feb, [facility] [place] [address] [id number] [place] 925820523 Jan, [facility] [place] [address] [id number] [place] 322584675 Dec, [facility] [place] [address] [id number] [place] 078794329 Dec, [facility] [place] [address] [id number] [place] 087838749 Dec, [facility] [place] [address] [id number] [place] 637174092 Dec, [facility] [place] [address] [id number] [place] 427554310 Dec, [facility] [place] [address] [id number] [place] 840054113 November, [facility] [place] [address] [id number] [place] 210060250 November, [facility] [place] [address] [id number] [place] [id number] November, [facility] [address]00565[address], [place] 67779425- 3717 November, [facility] [place] [address] [id number] [place] [id number] November, [facility] [address] [id number] [place] [id number] November, [facility] [address] [id number] [place] [id number] Oct, [facility] [address] [id number] [place] [id number] Oct, [facility] [address] [id number] [place] [id number] Oct, [facility] [address] [id number] [place] [id number] Oct, [facility] [address] [id number] [place] [id number] Oct, [facility] [address] [id number] [place] [id number] Oct, [facility] [address] [id number] [place] [id number] Sep, [facility] [address] [id number] [place] [id number] Aug, [facility] [address] [id number] [place] [id number] Aug, [facility] [address] [id number] [place] [id number] Jul, [facility] [address] [id number] Jun, [facility] [address] [address] Jun, [facility] [id number] [place] [address] Jun, [facility] [place] [facility] [address] [id number] [place] [address] 14 Jun, 2011 [facility] [place] [facility] [address] [id number] [place] [address] May, [facility] [place] [facility] [address] [facility] [id number] [place] [address] May, [facility] [place] [facility] [address] [id number] [place] [address] Apr, [facility] [place] [facility] [address] [id number] [place] [address] Apr, [facility] [place] [facility] [address] [id number] [place] [address] Apr, [facility] [place] [facility] [address] [facility] [id number] [place] [address] Feb, [facility] [place] [facility] [address] [id number] [place] [address] Aug, [facility] [place] [facility] [address] [facility] [id number] [place] [address] Jul, [facility] [place] [facility] [address] [facility] [id number] [place] [address] Jun, [facility] [place] [facility] [address] [id number] [place] [address] May, [facility] [place] [facility] [address] [id number] [place] [address] May, [facility] [place] [facility] [address] [id number] [place] [address] May, [facility] [place] [facility] [address] [facility] [id number] [place] [address] May, [facility] [place] [facility] [address] [facility] [id number] [place] [address] May, [facility] [place] [facility] [address], [place] [address] Aug, [facility] [address], [place] [address] Jun, [facility] [address], [place] [address] Jun, [facility] [id number] [place] [address] Jun, [facility] [address], [place] [address] May, [facility] [id number] [place] [address]- [address] Apr, [facility] [id number] [place] [address]- [address] Apr, [facility] [id number] [place] [address] Apr, [facility] [address] [address] Jan, [facility] [address], [place] [address] Oct, [facility] [address], [place] [address] May, [facility] [address], [place] [address] May, IMMUNIZATIONS No Known Immunizations SOCIAL HISTORY Never Assessed REASON FOR VISIT Diabetes f/u-AHarrymanRN, needs new glucometer rx, refills on tresiba, pen needles, seroquel, victoza, needs new rx for portable oxygen PLAN OF CARE Activity Details Follow Up 3 months Reason:DM VITAL SIGNS Height 64 in 2017-05-12 Weight 353.9 lbs 2017-05-12 Temperature 98.5 degrees Fahrenheit 2017-05-12 Heart Rate 84 bpm 2017-05-12 Respiratory Rate 22 2017-05-12 BMI 60.74 kg/m2 2017-05-12 Blood pressure systolic 122 mmHg 2017-05-12 Blood pressure diastolic 58 mmHg 2017-05-12 MEDICATIONS Medication Instructions Dosage Frequency Start Date End Date Duration Status Carafate 1 GM Orally Twice a day 1 tablet on an empty stomach 12h November 90 days Active Cozaar 50 mg Orally Once a day 1 tablet 24h Active Tramadol HCl 50 mg Orally every 6 hrs, may take up to 3 times daily 1 tablet as needed for pain Active Multivitamin Orally Once a day 1 tablet 24h Dec, Active Torsemide 100 mg Orally Once a day 1/2 tablet 24h 30 Active Melatonin 10 mg 2 Tablet by Oral route 1 time per dayat bedtime Active Eliquis 5 mg Orally 2 times a day as directed 12h 30 days Active BD Pen Needle Lovely U/F 32G X 4 MM USE DIRECTED THREE (3) TIMES DAILY. Active Oxygen 2 L/NC .... daily Active Savella 100 mg Orally Twice a day 1 tablet 12h Jul, 28 days Active Protonix 40 mg Orally Once a day 1 tablet 24h 90 days Active NovoLog Flexpen 100 UNIT/ML ICD10- E11.29 3 times a day with meals 50 Jul, Active Advair Diskus 100 mcg-50 mcg inhalation bid, rinse mouth afterwards 1 puffs Active Verapamil HCl ER 240 MG Orally Once a day in the morning 1 tablet Active Lipitor 40 mg Orally Once a day 1 tablet 24h Active Fish Oil Concentrate 1000 MG Orally Twice a day. 2 in AM, 1 in PM 1 capsule Apr, Active Gabapentin 600 MG Orally 3 times a day 1 tablet 8h 28 days Active Trazodone HCl 150 MG Orally Once a day at bedtime as needed 1 tablet Active Glucometer ... as directed Active Test strips ... True Test Active Biotin 1000 MCG Orally Once a day 1 tablet 24h Active Albuterol Sulfate 90 mcg/actuation inhalation every 4-6 hours as needed 1-2 puffs Active Seroquel 50 mg Orally Once a day at bedtime 1 tablet 30 days Active MiraLax 17 gm/dose Orally PRN 17 grams mixed in 8 oz of water or juice Active BD Insulin Syringe 31G X 5/16 subcutaneously with insulin as directed Jan, Active BD Pen BD PEN NEEDLE LOVELY subcut 3 times a day as directed 8h Active Insulin Syringe-Needle U-100 29G X 1/2 subcutaneously 5 times per day as directed Active Tresiba FlexTouch 200 UNIT/ML ICD10- E11.29 daily 105 units 24h 19 Jul, 2016 Active Victoza 18 MG/3ML INJECT 1.8 MG SUBCUTANEOUSLY ONCE DAILY... Active RESULTS Name Result Date Reference Range A1C (IN HOUSE) 2017-05-12 A1C IN HOUSE 6.4 4.3 - 5.6 % Previous A1c 6.4 Lot [id number] Exp date 11/2018 PROCEDURES Procedure Date Ordered Result Body Site GLYCATED HEMOGLOBIN TEST May 12, 2017 INSTRUCTIONS MEDICATIONS ADMINISTERED No Known Medications [...] Ruthy Reveles 2012 -Dr. Simon now [facility] Medical History Colonoscopy (polyps 2 ) [...]
--- OUTSIDE RECORDS SUMMARY | 2018-01-17 09:44 | XMS REPORT ---
Author Author CHELSY VILLAFANA [facility] Address [address] [place] [address] Care Team Providers Care Dipper And Drier Name Role Phone CHELSY VILLAFANA Unavailable PROBLEMS Type Condition ICD9-CM Code DOP13-VV Code Onset Dates Condition Status SNOMED Code Problem Chronic kidney disease, stage 4 (severe) N18.4 Active 683937363 Problem Psoriasis of scalp L40.9 Active 795881456 Problem Type 2 diabetes mellitus with hyperglycemia E11.65 Active 768557148343851 Problem Fibromyalgia M79.7 Active 539246219 Problem History of DVT (deep vein thrombosis) Z86.718 Active 737303603 Problem Carpal tunnel syndrome, bilateral G56.03 Active 19350689411448382 Problem Type 2 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 Active 804173062 Problem Anemia in other chronic diseases classified elsewhere D63.8 Active 511121334 Problem snf 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 Active 520976752 Problem Paresthesia of right upper extremity R20.2 Active 16260706 Problem Bilateral lower extremity edema R60.0 Active 248631134 Problem Supplemental oxygen dependent Z99.81 Active 785946030745 Problem Sleep apnea in adult G47.33 Active 01538541 Problem Chronic pain syndrome G89.4 Active 999206319 Problem 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 Active 661103721 Problem Essential hypertension I10 Active 37591254 Problem Gastroesophageal reflux disease without esophagitis K21.9 Active 049076431 Problem Chronic obstructive pulmonary disease, unspecified COPD type J44.9 Active 97170933 Problem 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 Active 952959799892292 Problem Primary insomnia F51.01 Active 9156180 Problem Oxygen desaturation during sleep G47.34 Active 933527435 Problem Right carpal tunnel syndrome G56.01 Active 221248077180947 Problem Diabetic polyneuropathy associated with type 2 diabetes mellitus E11.42 Active 76720575 Problem Depression, unspecified depression type F32.9 Active 67697139 ALLERGIES No Information ENCOUNTERS Encounter Location Date Diagnosis [id number] [id number] Dec, [address] [place] [id number] Dec, [address] [id number] Dec, Essential hypertension I10 ; Type 2 diabetes mellitus with other diabetic kidney complication E11.29 ; Depression, unspecified depression type F32.9 ; Supplemental oxygen dependent Z99.81 ; Chronic pain syndrome G89.4 ; Fibromyalgia M79.7 ; Carpal tunnel syndrome, bilateral G56.03 and Chronic kidney disease, stage 4 (severe) N18.4 [facility] [id number] [place] [address] 45094- 8710 Dec, Essential hypertension I10 [facility] [address] [address]- 8489 November, Type 2 diabetes mellitus with other diabetic kidney complication E11.29 [facility] [id number] [place] [address] 67605- 0287 November, Chronic pain syndrome G89.4 [facility] [id number] [place] [address] 82682- 1556 November, [facility] [id number] [place] [address] 23933- 8053 November, [facility] [id number] [place] [address] 93759- 4151 November, [facility] [id number] [place] [address] 91230- 1528 Oct, Type 2 diabetes mellitus with other diabetic kidney complication E11.29 [facility] [id number] [place] [address] 48339- 5808 Oct, Primary insomnia F51.01 [place] [id number] [place] [id number] Oct, Bilateral lower extremity edema R60.0 [place] [id number] [place] [address] 46839- 6897 Oct, [place] [id number] [place] [address] 90792- 8064 Sep, Type 2 diabetes mellitus with other diabetic kidney complication E11.29 and Chronic obstructive pulmonary disease, unspecified COPD type J44.9 [place] [id number] [place] [address] 86162- 2798 15 Aug, 2017 Type 2 diabetes mellitus with other diabetic kidney complication E11.29 [facility] [id number] [place] [address] 80601- 1363 12 Aug, 2017 Gastroesophageal reflux disease without esophagitis K21.9 ; snf current use of anticoagulant Z79.01 ; Chronic pain syndrome G89.4 ; Essential hypertension I10 and Type 2 diabetes mellitus with other diabetic kidney complication E11.29 [facility] [id number] [place] [address] 50303- 1507 08 Aug, 2017 Chronic pain syndrome G89.4 [facility] [facility] [id number] [place] [address] 39621- 9726 Aug, Type 2 diabetes mellitus with other diabetic kidney complication E11.29 [facility] [facility] [id number] [place] [address] 18019- 2014 Jul, Diabetic polyneuropathy associated with type 2 diabetes mellitus E11.42 [facility] [id number] [place] [address] 98792- 0918 Jul, Primary insomnia F51.01 [facility] [id number] [place] [address] 16844- 5621 Jul, [place] [id number] [place] [address] 40175- 2331 Jul, Type 2 diabetes mellitus with other diabetic kidney complication E11.29 and Chronic obstructive pulmonary disease, unspecified COPD type J44.9 [facility] [id number] [place] [address] 57144- 6690 Jul, Type 2 diabetes mellitus with other diabetic kidney complication E11.29 [place] [address] [place] [address] 81249- 2160 Jun, Type 2 diabetes mellitus with other diabetic kidney complication E11.29 [facility] [facility] [address], [place] [address] 7701 Jun, [place] [id number] [place] [address] 11300- 3764 Jun, Chronic obstructive pulmonary disease, unspecified COPD type J44.9 [place] [id number] [place] [address] 50900- 9268 May, Type 2 diabetes mellitus with other diabetic kidney complication E11.29 [facility] [address] [place] [address] 07742- 0357 May, 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 and Essential hypertension I10 [place] [address] [place] [address] 32234- 2900 May, Anemia in other chronic diseases classified elsewhere D63.8 ; Chronic obstructive pulmonary disease, unspecified COPD type J44.9 ; Oxygen desaturation during sleep G47.34 ; Sleep apnea in adult G47.33 and Supplemental oxygen dependent Z99.81 [address] [address]- 1761 May, Type 2 diabetes mellitus with other diabetic kidney complication E11.29 ; Essential hypertension I10 ; Chronic pain syndrome G89.4 ; BMI 40.0-44.9, adult Z68.41 ; Gastroesophageal reflux disease without esophagitis K21.9 ; 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 ; supervisor intermediates 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 ; Diabetic polyneuropathy associated with type 2 diabetes mellitus E11.42 ; Edema of both legs R60.0 and Supplemental oxygen dependent Z99.81 [place] [address] [address]- 9192 May, [place] [id number] [place] [address] 16008- 5963 May, Essential hypertension I10 and Gastroesophageal reflux disease without esophagitis K21.9 [facility] [id number] [place] [address] 34317- 9145 May, [place] [id number] [place] [address] 83223- 6868 May, Type 2 diabetes mellitus with other diabetic kidney complication E11.29 and snf current use of anticoagulant Z79.01 [place] [id number] [place] [address] 53610- 5453 Apr, Chronic pain syndrome G89.4 and Essential hypertension I10 [facility] [id number] [place] [address] 30321- 7813 Apr, Type 2 diabetes mellitus with other diabetic kidney complication E11.29 [place] [address] 55090- 2032 Apr, Type 2 diabetes mellitus with other diabetic kidney complication E11.29 [facility] [id number] [place] [address] 20317- 9433 Apr, Essential hypertension I10 [place] [id number] [place] [address] 99229- 7023 Apr, Gastroesophageal reflux disease without esophagitis K21.9 [facility] [id number] [place] [address] 36820- 6851 Apr, Type 2 diabetes mellitus with other diabetic kidney complication E11.29 [facility] [facility] [id number] [place] [address] 40265- 6684 Apr, Type 2 diabetes mellitus with other diabetic kidney complication E11.29 and snf current use of anticoagulant Z79.01 [place] [id number] [place] [address] 26919- 9055 Mar, Encounter for immunization Z23 and Preoperative examination Z01.818 [place] [address] 14544- 7131 Mar, [place] [address] [place] [address] 59291- 0068 Mar, Type 2 diabetes mellitus with other diabetic kidney complication E11.29 [facility] [id number] [place] [address] 02933- 1673 Mar, Type 2 diabetes mellitus with other diabetic kidney complication E11.29 [facility] [id number] [place] [address] 84569- 2318 Mar, Gastroesophageal reflux disease without esophagitis K21.9 [facility] [id number] [place] [address] 49170- 3375 Mar, Essential hypertension I10 [facility] [id number] [place] [address] 93896- 3321 Feb, 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 [facility] [id number] [place] [address] 83104- 1462 Feb, Type 2 diabetes mellitus with other diabetic kidney complication E11.29 [facility] [id number] [place] [address] 28067- 0594 Feb, Type 2 diabetes mellitus with other diabetic kidney complication E11.29 [facility] [id number] [place] [address] 07641- 6329 Feb, Type 2 diabetes mellitus with other diabetic kidney complication E11.29 [place] [id number] [place] [address] 47499- 4324 Feb, Gastroesophageal reflux disease without esophagitis K21.9 [facility] [id number] [place] [address] 01228- 3197 Feb, Type 2 diabetes mellitus with other diabetic kidney complication E11.29 [facility] [id number] [place] [address] 22224- 1389 Feb, 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 [facility] [id number] [place] [address] 23693- 3668 Jan, 2017 Type 2 diabetes mellitus with other diabetic kidney complication E11.29 [facility] [address] [address] 5647 Jan, 2017 Type 2 diabetes mellitus with other diabetic kidney complication E11.29 [facility] [id number] [address]- 3459 Jan, Chronic pain syndrome G89.4 [facility] [address] [facility] [id number] [address]- 7022 Jan, [facility] [address] [facility] [id number] [address]- 7676 Jan, [facility] [id number] [address]- 3161 Jan, [facility] [id number], [place] [address]- 5024 Jan, [facility] [address], [place] [address]- 7711 Jan, Primary insomnia F51.01 ; Type 2 diabetes mellitus with other diabetic kidney complication E11.29 ; Chronic pain syndrome G89.4 and Essential hypertension I10 [facility] [id number], [place] [address]- 1088 Jan, Primary insomnia F51.01 [facility] [address], [place] [address]- 8965 Jan, Type 2 diabetes mellitus with other diabetic kidney complication E11.29 [facility] [address] [facility] [id number], [place] [address]- 7141 Jan, [facility] [address], [place] [address]- 8051 Jan, Chronic obstructive pulmonary disease, unspecified COPD type J44.9 [facility] [id number] [address]- 8067 Jan, Essential hypertension I10 ; Type 2 diabetes mellitus with other diabetic kidney complication E11.29 ; Chronic obstructive pulmonary disease, unspecified COPD type J44.9 ; Chronic kidney disease, stage 4 (severe) N18.4 ; Right carpal tunnel syndrome G56.01 ; 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 ; snf (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 and Diabetic polyneuropathy associated with type 2 diabetes mellitus E11.42 [facility] [id number] [place] [address] 72600- 7360 Jan, Gastroesophageal reflux disease without esophagitis K21.9 [facility] [id number] [place] [address] 68769- 2569 Dec, [facility] [id number] [place] [address] 04620- 3327 Dec, [facility] [id number] [place] [address] 98523- 2126 Dec, snf current use of anticoagulant Z79.01 ; Chronic pain syndrome G89.4 and Essential hypertension I10 [facility] [id number] [place] [address] 36397- 5692 Dec, [facility] [id number] [place] [address] 89514- 1450 Dec, Type 2 diabetes mellitus with other diabetic kidney complication E11.29 [facility] [id number] [address]- 7627 Dec, [facility] [id number] [place] [address] 95115- 1905 Dec, Gastroesophageal reflux disease without esophagitis K21.9 [facility] [id number] [address]- 1996 November, Type 2 diabetes mellitus with other diabetic kidney complication E11.29 [facility] [id number] [address]- 2247 November, [facility] [id number] [place] [address] 26825- 8037 November, Type 2 diabetes mellitus with other diabetic kidney complication E11.29 [facility] [address], [place] [address]- 9431 November, [facility] [id number] [place] [address] 14783- 4375 November, Type 2 diabetes mellitus with other diabetic kidney complication E11.29 [facility] [id number] [place] [address] 15721- 9344 November, [facility] [id number] [address]- 1143 Oct, Essential hypertension I10 [place] [id number] [place] [address] 22051- 9583 Oct, Psoriasis of scalp L40.9 [facility] [id number] [place] [address] 27106- 0854 Oct, Essential hypertension I10 and Chronic pain syndrome G89.4 [facility] [id number], [place] [address]- 0996 Oct, [facility] [id number] [place] [address] 57132- 9712 Sep, Type 2 diabetes mellitus with other diabetic kidney complication E11.29 [facility] [address], [place] [address]- 3333 Sep, [facility] [address], [place] [address]- 2322 Sep, Type 2 diabetes mellitus with other diabetic kidney complication E11.29 [facility] [address], [place] [address]- 1555 Sep, Type 2 diabetes mellitus with other diabetic kidney complication E11.29 [facility] [address], [place] [address]- 3085 Sep, Type 2 diabetes mellitus with other diabetic kidney complication E11.29 ; Chronic kidney disease, stage 4 (severe) N18.4 ; Chronic obstructive pulmonary disease, unspecified COPD type J44.9 ; Iron deficiency anemia due to chronic blood loss D50.0 ; 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 ; Gastroesophageal reflux disease without esophagitis K21.9 ; Essential hypertension I10 ; Primary insomnia F51.01 ; Depression, unspecified depression type F32.9 ; Chronic pain syndrome G89.4 ; Wrist pain, right M25.531 ; Paresthesia of right upper extremity R20.2 and Psoriasis of scalp L40.9 [place] [address] 20361- 8155 Sep, [place] [address] 64880- 0263 Aug, Essential hypertension I10 [address] 85657- 1615 Aug, History of DVT (deep vein thrombosis) Z86.[address] 42295- 2280 Aug, [place] [id number] [place] [address] 52048- 2240 Jul, [address] 37198- 7518 Jul, [place] [id number] [place] [address] 50030- 2847 Jul, snf current use of anticoagulant Z79.01 ; Chronic pain syndrome G89.4 and Chronic kidney disease, stage 4 (severe) N18.4 [place] [id number] [place] [address] 90478- 8564 Jul, [address] 02922- 6682 Jul, [place] [id number] [place] [address] 63504- 2970 Jul, [address] 23825- 6990 Jul, [place] [address], [place] [address]- 4108 Jul, [address] [place] [address] 67141- 0187 Jul, Type 2 diabetes mellitus with other diabetic kidney complication E11.29 [address] [place] [address] 62932- 1046 Jul, History of DVT (deep vein thrombosis) Z86.718 [place] [id number] [place] [address] 62943- 7103 Jun, [place] [id number] [place] [address] 65458- 7882 Jun, History of DVT (deep vein thrombosis) Z86.718 [place] [id number] [place] [address] 94290- 9266 15 Jun, 2016 Post traumatic stress disorder (PTSD) F43.10 [address] [place] [address] 67787- 7681 07 Jun, 2016 Type 2 diabetes mellitus with other diabetic kidney complication E11.29 ; Diabetic polyneuropathy associated with type 2 diabetes mellitus E11.42 ; Iron deficiency anemia due to chronic blood loss D50.0 ; Chronic obstructive pulmonary disease, unspecified COPD type J44.9 ; snf current use of anticoagulant Z79.01 ; History [...] pain M79.641 and Right wrist pain M25.531 [address] [place] [address] 78781- 1538 May, [facility] [address] [facility] [id number] [place] [address]- 8657 May, [facility] [address] [facility] [id number] [place] [address], [place] [address] 2549 May, [facility] [id number] [place] [address]- 0723 May, [facility] [address] [facility] [id number] [place] [address], [place] [address]- 9117 May, Anemia in other chronic diseases classified elsewhere D63.8 [facility] [address] [facility] [id number] [place] [address], [place] [address]- 6072 May, [facility] [id number] [place] [address], [place] [address]- 5906 Apr, [facility] [id number] [place] [address] 52832- 3313 27 Mar, 2016 Dermatofibroma D23.9 [facility] [id number] [place] [address]- 7859 20 Mar, 2016 [facility] [id number] [place] [address], [place] [address]- 1245 14 Mar, 2016 Chronic pain syndrome G89.4 [facility] [address] [place] [address]- 6900 09 Mar, 2015 [facility] [id number], [place] [address] 2549 07 Mar, 2015 [facility] [id number] [place] [address]- 2548 Mar, [facility] [id number] [place] [address], [place] [address]- 2545 Feb, [facility] [address] [facility] [id number] [place] [address]- 1085 Feb, [facility] [address] [place] [address] 30285- 2845 Feb, [facility] [id number], [place] [address]- 1095 Feb, [facility] [address], [place] [address]- 0593 Feb, [facility] [address], [place] [address]- 2235 Feb, [place] [address] [place] [address] 68379- 7154 Feb, Type 2 diabetes mellitus with other diabetic kidney complication E11.29 ; Diabetic polyneuropathy associated with type 2 diabetes mellitus E11.42 ; Iron deficiency anemia due to chronic blood loss D50.0 ; Chronic obstructive pulmonary disease, unspecified COPD type J44.9 ; 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 ; History of DVT (deep vein thrombosis) Z86.718 ; Chronic pain syndrome G89.4 ; Oxygen desaturation during sleep G47.34 ; Sleep apnea in adult G47.33 ; Gastroesophageal reflux disease without esophagitis K21.9 ; Essential hypertension I10 ; Primary insomnia F51.01 ; Depression, unspecified depression type F32.9 and Renal failure, chronic, stage 4 (severe) N18.4 [place] [address] [place] [address] 35076- 6079 Feb, Skin tags, multiple acquired L91.8 [address], [place] [address]- 5691 Jan, [facility] [id number] [id number] Jan, Dental examination Z01.20 [place] [address], [place] [address]- 7827 Jan, [place] [address] [place] [address] 01494- 2190 Jan, Type 2 diabetes mellitus with other diabetic kidney complication E11.29 ; Diabetic polyneuropathy associated with type 2 diabetes mellitus E11.42 ; Iron deficiency anemia due to chronic blood loss D50.0 ; Chronic obstructive pulmonary disease, unspecified COPD type J44.9 ; snf current use of anticoagulant Z79.01 ; History of DVT (deep vein thrombosis) Z86.718 ; Chronic pain syndrome G89.4 ; Oxygen desaturation during sleep G47.34 ; Sleep apnea in adult G47.33 ; Gastroesophageal reflux disease without esophagitis K21.9 ; Essential hypertension I10 ; Primary insomnia F51.01 ; Depression, unspecified depression type F32.9 ; Skin lesion L98.9 and Renal failure, chronic, stage 4 (severe) N18.4 [facility] [id number] [place] [address] 84629- 4756 Dec, Diabetes type 2, uncontrolled E11.[address] 53417- 8962 Dec, [address] 69855- 1888 Dec, Type 2 diabetes mellitus with other diabetic kidney complication E11.29 ; Diabetic polyneuropathy associated with type 2 diabetes mellitus E11.42 ; Iron deficiency anemia due to chronic blood loss D50.0 ; Chronic obstructive pulmonary disease, unspecified COPD type J44.9 ; snf current use of anticoagulant Z79.01 ; History of DVT (deep vein thrombosis) Z86.718 ; Chronic pain syndrome G89.4 ; Oxygen desaturation during sleep G47.34 ; Sleep apnea in adult G47.33 ; Gastroesophageal reflux disease without esophagitis K21.9 ; Essential hypertension I10 ; Primary insomnia F51.01 and Depression, unspecified depression type F32.9 [facility] [address] [place] [address] [id number] Dec, Dental caries K02.9 [facility] [id number] [place] [address] [id number] Dec, [facility] [id number] [place] [address] [id number] Dec, Dental examination Z01.20 [facility] [address] [place] [address] [id number] November, Dental examination Z01.20 and Dental caries K02.9 [facility] [id number] [id number] Oct, [facility] [id number] [place] [address] [id number] Oct, [facility] [address] [id number] [id number] Sep, [facility] [id number] [place] [address] [id number] Sep, [facility] [id number] [place] [address] [id number] Sep, [facility] [id number] [place] [address] [id number] Sep, Other chronic pain 338.29 [facility] [id number] [place] [address] [id number] Aug, Diabetes type 2, uncontrolled E11.65 and Morbid obesity due to excess calories E66.01 [facility] [id number] [place] [address] [id number] Aug, Hair loss L65.9 [facility] [id number] [place] [address] [id number] Aug, [facility] [id number] [place] [address] [id number] Jul, [facility] [id number] [place] [address] [id number] Jul, [facility] [id number], [place] [id number] Jun, [facility] [id number] [place] [address] [id number] Jun, Hair loss L65.9 and Disorder of the skin and subcutaneous tissue, unspecified L98.9 [facility] [id number] [place] [address] [id number] May, Type 2 diabetes mellitus with other diabetic kidney complication E11.29 ; Type 2 diabetes mellitus with hyperglycemia E11.65 ; Morbid obesity due to excess calories E66.01 and Essential hypertension I10 [facility] [id number] [place] [address] [id number] May, Diabetes type 2, uncontrolled E11.65 ; Encounter for immunization Z23 and Morbid obesity due to excess calories E66.01 [place] [id number] [place] [address] [id number] May, [facility] [id number] [place] [address]69- 5132 Apr, [place] [id number] [place] [address] [id number] Apr, Hyperglycemia R73.9 [place] [place] [id number] [place] [address] [id number] Apr, [address] [id number] Apr, Depression F32.9 ; Encounter for immunization Z23 ; Hyperglycemia R73.9 and Anemia in other chronic diseases classified elsewhere D63.8 [facility] [id number] [place] [address] [id number] Mar, [place] [id number] [place] [address] [id number] Feb, Positive occult stool blood test 792.1 [place] [place] [id number] [place] [address] [id number] Feb, Depression 311 ; Other chronic pain 338.29 and Diabetes with renal manifestations, type II or unspecified type, not stated as uncontrolled 250.40 [facility] [address], [place] [address] Feb, Occult blood in stools 792.[id number] [place] [address] [id number] Feb, Anemia 285.9 ; Occult blood positive stool 792.1 ; Unspecified essential hypertension 401.9 and Other chronic pain 338.29 [id number] [place] [address] [id number] Feb, [place] [id number] [place] [address] [id number] Feb, Anemia 285.9 [id number] [place] [address] [place] [id number] Feb, [facility] [place] [id number], [place] [id number] Feb, [facility] [place] [id number] [place] [address] [id number] Feb, Diabetes with renal manifestations, type II or unspecified type, not stated as uncontrolled 250.40 ; Other chronic pain 338.29 ; Unspecified essential hypertension 401.9 ; Anemia 285.9 and Depression 311 [facility] [place] [id number] [place] [address] [id number] Jan, [facility] [place] [id number] [place] [address] [id number] Jan, Anemia 285.9 and Follow up V67.9 [facility] [place] [id number] [place] [address] [id number] Jan, [facility] [place] [id number] [place] [address] [id number] Jan, [facility] [place] [id number] [place] [address] [id number] Jan, [facility] [place] [id number] [place] [address] [id number] Dec, [facility] [place] [id number] [place] [address] 27834- 7086 Oct, [facility] [id number] [place] [address] 76884- 7098 Oct, [facility] [id number] [place] [address] 65423- 2546 Sep, [facility] [place] [address] [id number][place] [id number] Sep, [facility] [id number] [place] [address] 84356- 9369 Sep, [facility] [place] [id number], [place] [id number] Aug, [facility] [place] [id number] [place] [address] 89343- 7679 Aug, [facility] [place] [facility] [address] [id number], [place] [address]- 1526 Aug, [facility] [place] [address] [id number] [place] [id number] Aug, [facility] [place] [facility] [address] [facility] [id number] [place] [address]- 5386 Aug, [facility] [place] [facility] [address] [facility] [id number] [place] [address]- 5776 Aug, [facility] [place] [address] [id number], [place] [id number] Aug, [facility] [place] [facility] [address] [facility] [id number] [place] [address]- 0986 Aug, [facility] [place] [address] [facility] [id number], [place] [id number] Jul, [facility] [place] [facility] [address]00565100[place], [place] [address]- 9236 Jul, [facility] [place] [facility] [address] [id number], [place] [address]- 9259 Jul, [facility] [place] [address] [facility] [id number], [place] [id number] Jul, [facility] [place] [facility] [address]00565100[place], [place] [address]- 9286 Jul, [facility] [place] [address] [facility] [id number], [place] [id number] Jul, [facility] [place] [facility] [address] [facility] [id number], [place] [address]- 3656 Jul, [facility] [place] [address] [id number] [place] [id number] Jun, [facility] [place] [address] [facility] [id number], [place] [id number] Jun, [facility] [place] [facility] [address] [id number], [place] [address]- 6538 Jun, [facility] [place] [facility] [address] [facility] [id number], [place] [address]- 8688 Jun, [facility] [place] [address] [id number] [place] [id number] Jun, [facility] [place] [facility] [address] [facility] [id number], [place] [address]- 4828 Jun, [facility] [place] [address] [id number] [place] [id number] May, [facility] [place] [facility] [address] [facility] [id number][place] 632[place]- 5736 May, [facility] [place] [facility] [address] [facility] [id number], [place] [address]- 8285 May, [facility] [place] [address] [id number], [place] [id number] Apr, [facility] [place] [facility] [address] [facility] [id number], [place]- 6554 Apr, [facility] [place] [address] [id number], [place] [id number] Apr, [facility] [place] [address] [facility] [id number], [place] [id number] Apr, [facility] [place] [facility] [address] [facility] [id number], [place] 790495- 1406 Apr, [facility] [place] [facility] [address] [facility] [id number], [place] [address]- 6440 Apr, [facility] [place] [address] [id number], [place] [id number] Mar, [facility] [place] [facility] [address] [facility] [id number], [place] 82454141- 6032 18 Mar, 2014 [facility] [place] [address] [id number], [place] [id number] Mar, [facility] [place] [facility] [address] [facility] [id number], [place] 391717- 0153 17 Mar, 2014 [facility] [place] [address] [facility] [id number], [place] [id number] 16 Mar, 2014 [facility] [place] [facility] [address] [facility] [id number] [place] [address]- 8396 Mar, [facility] [address] [id number] [place] [id number] Mar, [facility] [place] [facility] [address] [facility] [id number] [place] [address]- 7346 Mar, [facility] [place] [address] [id number] [place] [id number] Mar, [facility] [place] [facility] [address] [id number] [place] [address]- 5698 Mar, [facility] [place] [address] [id number] [place] [id number] Feb, [facility] [place] [facility] [address] [facility] [id number] [place] [address]- 7156 Feb, [facility] [place] [address] [id number] [place] [id number] Jan, [facility] [place] [facility] [address] [facility] [id number] [place] [address]- 6476 Jan, [facility] [place] [address] [facility] [id number] [place] [id number] Jan, [facility] [place] [facility] [address] [facility] [id number] [place] [address]- 5073 Jan, [facility] [place] [address] [id number] [place] [id number] Jan, [facility] [place] [facility] [address] [facility] [id number] [place] [address]- 6457 Jan, [facility] [place] [facility] [address] [facility] [id number] [place] [address]- 0440 Dec, [facility] [place] [facility] [address] [facility] [id number] [place] [address]- 0907 Dec, [facility] [place] [address] [id number] [place] [id number] November, [facility] [place] [facility] [address] [facility] [id number] [place] [address]- 5420 November, [facility] [place] [address] [id number] [place] [id number] November, [facility] [place] [facility] [address] [id number] [place] [address]- 2533 November, [facility] [place] [address] [facility] [id number] [place] [id number] Oct, [facility] [place] [facility] [address] [facility] [id number] [place] [address]- 9341 Oct, [facility] [place] [facility] [address] [facility] [id number] [place] [address]- 4188 Oct, [facility] [place] [facility] [address] [facility] [id number] [place] [address]- 2856 Oct, [facility] [place] [facility] [address] [facility] [id number] [place] [address]- 7202 Oct, [facility] [place] [facility] [address] [facility] [id number] [place] [address]- 3962 Oct, [facility] [place] [address] [facility] [id number], [place] [id number] Sep, [facility] [place] [address] [facility] [id number], [place] 701400716 Sep, [facility] [place] [facility] [address] [facility] [id number], [place] [address]- 5647 Sep, [facility] [place] [facility] [address] [facility] [id number], [place] [address]- 2387 Sep, [facility] [place] [address] [facility] [id number], [place] 859867573 Sep, [facility] [place] [facility] [address] [facility] [id number] [place] [address]- 1304 Sep, [facility] [place] [facility] [address] [facility] [id number], [place] [address]- 2386 Aug, [facility] [place] [facility] [address] [facility] [id number], [place] [address]- 3952 Aug, [facility] [place] [address] [facility] [id number], [place] 304400183 Aug, [facility] [place] [address] [id number] [place] 588685755 Aug, [facility] [place] [facility] [address] [facility] [id number], [place] [address]- 2436 Aug, [facility] [place] [address] [facility] [id number] [place] [id number] Aug, [facility] [place] [facility] [address] [facility] [id number], [place] [address]- 5566 Aug, [facility] [place] [address] [facility] [id number] [place] [id number] Aug, [facility] [place] [facility] [address] [id number], [place] [address]- 1956 Aug, [facility] [place] [address] [facility] [id number] [place] [id number] Aug, [facility] [place] [facility] [address] [id number], [place] [address]- 7026 Aug, [facility] [place] [address] [facility] [id number] [place] [id number] Aug, [facility] [place] [facility] [address] [id number], [place] [address]- 9726 Aug, [facility] [place] [facility] [address] [id number], [place] [address]- 3376 Jul, [facility] [place] [address] [facility] [id number], [place] [id number] Jun, [facility] [place] [facility] [address] [facility] [id number], [place] [address]- 9497 Jun, [facility] [place] [facility] [address] [facility] [id number], [place] [address]- 9365 Jun, [facility] [place] [facility] [address] [facility] [id number], [place] [address]- 9686 Jun, [facility] [place] [address] [facility] [id number], [place] [id number] Jun, [facility] [place] [facility] [address] [id number], [place] [address]- 9506 Jun, [facility] [place] [facility] [address] [id number] [place] [address]- 6476 Jun, [facility] [place] [address] [facility] [id number], [place] 026109359 Jun, [facility] [place] [facility] [address] [id number] [place] [address]- 6356 Jun, [facility] [place] [facility] [address] [id number] [place] [address]- 0423 May, [facility] [address] [facility] [id number], [place] 338548348 May, [facility] [place] [facility] [address] [facility] [id number] [place] [address]- 3666 May, [facility] [place] [facility] [address] [id number], [place] [address]- 5666 May, [facility] [place] [facility] [address] [facility] [id number], [place] [address]- 1166 May, [facility] [place] [facility] [address] [facility] [id number], [place] [address]- 9826 May, [facility] [place] [address] [facility] [id number], [place] 705921627 May, [facility] [place] [facility] [address] [facility] [id number], [place] [address]- 2546 May, [facility] [place] [address] [facility] [id number], [place] 059274816 May, [facility] [place] [facility] [address] [id number], [place] [address]- 2546 May, [facility] [place] [address] [facility] [id number], [place] [id number] Apr, [facility] [place] [facility] [address] [facility] [id number], [place] [address]- 1616 Apr, [facility] [place] [facility] [address] [facility] [id number], [place] [address]- 4925 Apr, [facility] [place] [address] [facility] [id number], [place] [id number] Apr, [facility] [place] [facility] [address] [facility] [id number], [place] [address]- 5835 Apr, [facility] [address] [facility] [id number], [place] [address]- 6028 Apr, [facility] [place] [address] [facility] [id number], [place] [id number] Apr, [facility] [place] [facility] [address] [facility] [id number], [place] [address]- 8913 Apr, [facility] [place] [facility] [address] [facility] [id number], [place] [address]- 8435 Apr, [facility] [place] [facility] [address] [facility] [id number], [place] [address]- 7226 Apr, [facility] [place] [address] [facility] [id number], [place] 926118230 Apr, [facility] [place] [facility] [address] [facility] [id number], [place] [address]- 3950 Apr, [facility] [place] [address] [id number], [place] 688416339 Apr, [facility] [place] [facility] [address] [facility] [id number], [place] [address]- 7365 Apr, [facility] [place] [address] [facility] [id number], [place] [id number] Apr, [facility] [place] [facility] [address] [facility] [id number], [place] [address]- 7888 Apr, [facility] [place] [facility] [address] [facility] [id number], [place] [address]- 8935 Apr, [facility] [place] [facility] [address] [facility] [id number], [place] [address]- 9016 Apr, [facility] [place] [address] [facility] [id number], [place] 899132774 Apr, [facility] [place] [facility] [address] [facility] [id number], [place] [address]- 2839 Mar, [facility] [place] [address] [facility] [id number], [place] [address]- 3480 Mar, [facility] [place] [address] [id number] [place] [id number] Mar, [facility] [place] [address] [id number] [place] 286990779 Mar, [facility] [place] [address] [id number] [place] 817736299 Mar, [facility] [place] [address] [id number] [place] 585806017 Feb, [facility] [place] [address] [id number] [place] 707014029 Feb, [facility] [place] [address] [id number] [place] 994402180 Feb, [facility] [place] [address] [facility] [id number], [place] 724[place]- 0492 Feb, [facility] [place] [address] [id number] [place] 154862812 Feb, [facility] [place] [address] [id number] [place] 412070372 Feb, [facility] [place] [address] [id number] [place] 664008528 Feb, [facility] [place] [address] [id number] [place] 498282918 Feb, [facility] [place] [address] [id number] [place] [id number] Feb, [facility] [place] [address] [id number] [place] 954285215 Jan, [facility] [place] [address] [id number] [place] 944647675 Jan, [facility] [place] [address] [id number] [place] 168806841 Jan, [facility] [place] [address] [id number] [place] [id number] Jan, [facility] [place] [address] [id number] [place] 625005547 Jan, [facility] [address] [facility] [id number], [place] [address]- 5549 Jan, [facility] [place] [address] [id number] [place] 915988899 Jan, [facility] [place] [address] [id number] [place] 708099644 Jan, [facility] [place] [address] [id number] [place]64119742 Dec, [facility] [place] [address] [id number] [place] 570235079 November, [facility] [place] [address] [id number] [place] 444100036 November, [facility] [place] [address] [id number] [place] 240242484 November, [facility] [place] [address] [id number] [place] 071374740 November, [facility] [place] [address] [id number] [place] 640407863 November, [facility] [place] [address] [id number] [place] 930017923 November, [facility] [place] [address] [id number] [place] 643641602 Jul, [facility] [place] [address] [id number] [place] [id number] Jul, [facility] [place] [address] [id number] [place] [id number] Jul, [facility] [place] [address] [id number] [place] [id number] Jun, [facility] [address] [facility] [id number], [place] [address]- 5479 Jun, [facility] [place] [address] [id number] [place] [id number] May, [facility] [address]00565100[place], [place] [address]- 7927 May, [facility] [place] [address] [id number][place] [id number] May, [facility] [place] [facility] [address] [facility] [id number], [place] [address] May, [facility] [place] [address] [id number][place] [id number] May, [facility] [address] [facility] [id number], [place] [address] May, [facility] [place] [address] [id number][place] [id number] Apr, [facility] [address] [facility] [id number] [place] [address] Apr, [facility] [place] [facility] [address] [facility] [id number], [place] [address] Apr, [facility] [place] [address] [id number][place] [id number] Apr, [facility] [place] [address] [id number][place] [id number] Apr, [facility] [id number], [place] [address] Apr, [facility] [place] [facility] [address] [facility] [id number], [place] [address] Apr, [facility] [place] [address] [id number][place] [id number] Apr, [facility] [place] [facility] [address] [facility] [id number], [place] [address] Apr, [facility] [place] [address] [id number][place] [id number] Apr, [facility] [place] [address] [id number][place] [address] Apr, [facility] [place] [address] [id number], [place] [id number] Mar, [facility] [place] [address] [id number][place] [id number] Feb, [facility] [place] [address] [id number] [place] [id number] Jan, [facility] [place] [address] [id number] [place] [id number] Dec, [facility] [place] [address] [id number] [place] [id number] Dec, [facility] [place] [address] [id number] [place] [id number] Dec, [facility] [place] [address] [id number] [place] [id number] Dec, [facility] [place] [address] [id number] [place] [id number] Dec, [facility] [place] [address] [id number] [place] [id number] November, [facility] [place] [address] [id number] [place] [id number] November, [facility] [place] [address] [id number] [place] [id number] November, [facility] [place] [address] [facility] [id number], [place] [address] November, [facility] [place] [address] [id number] [place] [id number] November, [facility] [place] [address] [id number] [place] [id number] November, [facility] [place] [address] [id number] [place] [id number] Oct, [facility] [place] [address] [id number] [place] [id number] Oct, [facility] [place] [address] [id number] [place] [id number] Oct, [facility] [place] [address] [id number] [place] [id number] Oct, [facility] [place] [address] [id number] [place] [id number] Oct, [facility] [place] [address] [id number] [place] [id number] Oct, [facility] [place] [address] [id number][place] [id number] Sep, [facility] [place] [address] [id number] [place] [id number] Aug, [facility] [place] [address] [id number] [place] [id number] Aug, [facility] [place] [address] [id number] [place] [id number] Jul, [facility] [place] [facility] [address] [facility] [id number], [place] [address] Jun, [facility] [place] [facility] [address] [id number], [place] [address] Jun, [facility] [place] [facility] [address] [facility] [id number], [place] [address] Jun, [facility] [place] [facility] [id number], [place] [address] Jun, [facility] [place] [facility] [address] [id number], [place] [address] May, [facility] [place] [facility] [address] [id number], [place] [address] May, [facility] [place] [facility] [id number], [place] [address] Apr, [facility] [place] [facility] [id number], [place] [address] Apr, [facility] [place] [facility] [address] [id number], [place] [address] Apr, [facility] [place] [facility] [address] [facility] [id number], [place] [address] Feb, [facility] [place] [facility] [address] [facility] [id number], [place] [address] 15 Aug, 2010 [facility] [place] [facility] [address] [facility] [id number], [place] [address] Jul, [facility] [place] [facility] [address] [facility] [id number], [place] [address] 30 Jun, 2010 [facility] [address] [id number] [place] [address] May, [facility] [place] [facility] [address] [id number], [place] [address] May, [facility] [address] [facility] [id number] [place] [address] May, [facility] [place] [facility] [address] [id number] [place] [address] May, [facility] [id number] [place] [address], [place] [address]- [address]6 May, [facility] [place] [facility] [address] [facility] [id number] [place] [address] Aug, [facility] [address] [facility] [id number], [place] [address] Jun, [facility] [place] [facility] [address] [facility] [id number], [place] [address] Jun, [facility] [facility] [address] [facility] [id number], [place] [address] Jun, [facility] [address] [facility] [id number], [place] [address] 24 May, 2009 [facility] [address] [facility] [id number], [place] [address] 28 Apr, 2009 [facility] [address] [facility] [id number], [place] [address] 27 Apr, 2009 [facility] [address] [facility] [id number], [place] [address] 15 Apr, 2009 [facility] [address] [facility] [id number], [place] [address] 20 Jan, 2009 [facility] [address] [facility] [id number], [place] [address] 13 Oct, 2008 [facility] [address] [facility] [id number] [place] [address] May, [facility] [address] [facility] [id number] [place] [address] May, IMMUNIZATIONS No Known Immunizations SOCIAL HISTORY Never Assessed REASON FOR VISIT Refill request PLAN OF CARE VITAL SIGNS MEDICATIONS Medication Instructions Dosage Frequency Start Date End Date Duration Status BD Pen BD PEN NEEDLE MARSHA subcut 3 times a day as directed 8h Active RESULTS No Results PROCEDURES No [...] Dialysis [facility] 2012 -Dr. Simon now [facility] Medical History Colonoscopy (polyps 2 ) [...]
--- OUTSIDE RECORDS SUMMARY | 2018-01-17 09:48 | XMS REPORT ---
Author Author CHELSY VILLAFANA [facility] Address [address] [place] [address] Care Team Providers Care Senior Writer Name Role Phone CHELSY VILLAFANA Unavailable PROBLEMS Type Condition ICD9-CM Code XKP50-OK Code Onset Dates Condition Status SNOMED Code Problem Chronic kidney disease, stage 4 (severe) N18.4 Active 423665381 Problem Psoriasis of scalp L40.9 Active 376688668 Problem Type 2 diabetes mellitus with hyperglycemia E11.65 Active 902061673370687 Problem Fibromyalgia M79.7 Active 797099111 Problem History of DVT (deep vein thrombosis) Z86.718 Active 143771262 Problem Carpal tunnel syndrome, bilateral G56.03 Active 42139725286530010 Problem Type 2 diabetes mellitus with other diabetic kidney complication E11.29 Active 468986497 Problem Anemia in other chronic diseases classified elsewhere D63.8 Active 602580049 Problem [facility] 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 Active 281021697 Problem Paresthesia of right upper extremity R20.2 Active 05453770 Problem Bilateral lower extremity edema R60.0 Active 341583918 Problem Supplemental oxygen dependent Z99.81 Active 173084042089 Problem Sleep apnea in adult G47.33 Active 35759007 Problem Chronic pain syndrome G89.4 Active 556421177 Problem 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 of anticoagulant Z79.01 Active 109065335 Problem Essential hypertension I10 Active 93379072 Problem Gastroesophageal reflux disease without esophagitis K21.9 Active 084350819 Problem Chronic obstructive pulmonary disease, unspecified COPD type J44.9 Active 84544841 Problem 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 Active 701194661054782 Problem Primary insomnia F51.01 Active 1178375 Problem Oxygen desaturation during sleep G47.34 Active 611896405 Problem Right carpal tunnel syndrome G56.01 Active 688765543772883 Problem Diabetic polyneuropathy associated with type 2 diabetes mellitus E11.42 Active 66870795 Problem Depression, unspecified depression type F32.9 Active 50603248 ALLERGIES No Information ENCOUNTERS Encounter Location Date Diagnosis [id number] [id number] Dec, [address] [place] [id number] Dec, [address] [id number] Dec, Essential hypertension I10 ; Type 2 diabetes mellitus with other diabetic kidney complication E11.29 ; Depression, unspecified depression type F32.9 ; Supplemental oxygen dependent Z99.81 ; Chronic pain syndrome G89.4 ; Fibromyalgia M79.7 ; Carpal tunnel syndrome, bilateral G56.03 and Chronic kidney disease, stage 4 (severe) N18.4 [facility] [id number] [place] [address] 61542- 7400 Dec, Essential hypertension I10 [facility] [address] [address]- 6208 November, Type 2 diabetes mellitus with other diabetic kidney complication E11.29 [facility] [id number] [place] [address] 88131- 9108 November, Chronic pain syndrome G89.4 [facility] [id number] [place] [address] 83695- 2439 November, [facility] [id number] [place] [address] 82467- 1823 November, [facility] [id number] [place] [address] 70129- 7639 November, [facility] [id number] [place] [address] 23865- 1876 Oct, Type 2 diabetes mellitus with other diabetic kidney complication E11.29 [facility] [id number] [place] [address] 08615- 5172 Oct, Primary insomnia F51.01 [id number] [place] [id number] Oct, Bilateral lower extremity edema R60.0 [place] [id number] [place] [address] 75805- 2619 Oct, [place] [id number] [place] [address] 07431- 8156 Sep, Type 2 diabetes mellitus with other diabetic kidney complication E11.29 and Chronic obstructive pulmonary disease, unspecified COPD type J44.9 [facility] [id number] [place] [address] 82671- 9023 15 Aug, 2017 Type 2 diabetes mellitus with other diabetic kidney complication E11.29 [facility] [id number] [place] [address] 02141- 8077 12 Aug, 2017 Gastroesophageal reflux disease without esophagitis K21.9 ; [facility] current use of anticoagulant Z79.01 ; Chronic pain syndrome G89.4 ; Essential hypertension I10 and Type 2 diabetes mellitus with other diabetic kidney complication E11.29 [facility] [id number] [place] [address] 44118- 5405 08 Aug, 2017 Chronic pain syndrome G89.4 [facility] [id number] [place] [address] 70337- 8250 Aug, Type 2 diabetes mellitus with other diabetic kidney complication E11.29 [facility] [id number] [place] [address] 35065- 8054 Jul, Diabetic polyneuropathy associated with type 2 diabetes mellitus E11.42 [facility] [id number] [place] [address] 54823- 2724 Jul, Primary insomnia F51.01 [facility] [id number] [place] [address] 74499- 8526 Jul, [place] [facility] [id number] [place] [address] 04753- 1399 Jul, Type 2 diabetes mellitus with other diabetic kidney complication E11.29 and Chronic obstructive pulmonary disease, unspecified COPD type J44.9 [facility] [id number] [place] [address] 49368- 4639 Jul, Type 2 diabetes mellitus with other diabetic kidney complication E11.29 [facility] [id number] [place] [address] 65391- 5215 Jun, Type 2 diabetes mellitus with other diabetic kidney complication E11.29 [facility] [address], [place] [address] 5756 Jun, [facility] [id number] [place] [address] 90464- 9292 Jun, Chronic obstructive pulmonary disease, unspecified COPD type J44.9 [id number] [place] [address] 50247- 4257 May, Type 2 diabetes mellitus with other diabetic kidney complication E11.29 [facility] [address] [place] [address] 77847- 8388 May, 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 of anticoagulant Z79.01 and Essential hypertension I10 [place] [address] [place] [address] 77036- 9128 May, Anemia in other chronic diseases classified elsewhere D63.8 ; Chronic obstructive pulmonary disease, unspecified COPD type J44.9 ; Oxygen desaturation during sleep G47.34 ; Sleep apnea in adult G47.33 and Supplemental oxygen dependent Z99.81 [address], [place] [address] 16[address] May, Type 2 diabetes mellitus with other diabetic kidney complication E11.29 ; Essential hypertension I10 ; Chronic pain syndrome G89.4 ; BMI 40.0-44.9, adult Z68.41 ; Gastroesophageal reflux disease without esophagitis K21.9 ; 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 of anticoagulant Z79.01 ; 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 ; Diabetic polyneuropathy associated with type 2 diabetes mellitus E11.42 ; Edema of both legs R60.0 and Supplemental oxygen dependent Z99.81 [place] [address], [place] [address]- 1752 May, [facility] [id number] [place] [address] 45762- 2221 May, Essential hypertension I10 and Gastroesophageal reflux disease without esophagitis K21.9 [facility] [id number] [place] [address] 82223- 6136 May, [place] [id number] [place] [address] 02134- 8851 May, Type 2 diabetes mellitus with other diabetic kidney complication E11.29 and [facility] current use of anticoagulant Z79.01 [place] [id number] [place] [address] 32076- 7641 Apr, Chronic pain syndrome G89.4 and Essential hypertension I10 [facility] [id number] [place] [address] 63769- 6982 Apr, Type 2 diabetes mellitus with other diabetic kidney complication E11.29 [place] [address] 41620- 5656 Apr, Type 2 diabetes mellitus with other diabetic kidney complication E11.29 [facility] [id number] [place] [address] 90007- 4199 Apr, Essential hypertension I10 [facility] [id number] [place] [address] 04752- 2072 Apr, Gastroesophageal reflux disease without esophagitis K21.9 [facility] [id number] [place] [address] 91880- 9339 Apr, Type 2 diabetes mellitus with other diabetic kidney complication E11.29 [facility] [id number] [place] [address] 75770- 3477 Apr, Type 2 diabetes mellitus with other diabetic kidney complication E11.29 and [facility] current use of anticoagulant Z79.01 [facility] [id number] [place] [address] 54744- 4333 Mar, Encounter for immunization Z23 and Preoperative examination Z01.818 [place] [address] 95426- 2455 Mar, [place] [address] [place] [address] 83496- 8155 Mar, Type 2 diabetes mellitus with other diabetic kidney complication E11.29 [facility] [id number] [place] [address] 43958- 7250 Mar, Type 2 diabetes mellitus with other diabetic kidney complication E11.29 [facility] [id number] [place] [address] 48773- 6263 Mar, Gastroesophageal reflux disease without esophagitis K21.9 [facility] [id number] [place] [address] 73689- 5691 Mar, Essential hypertension I10 [facility] [id number] [place] [address] 03776- 6190 Feb, 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 of anticoagulant Z79.01 [place] [facility] [id number] [place] [address] 03261- 1396 Feb, Type 2 diabetes mellitus with other diabetic kidney complication E11.29 [facility] [id number] [place] [address] 21739- 4165 Feb, Type 2 diabetes mellitus with other diabetic kidney complication E11.29 [facility] [id number] [place] [address] 58356- 9965 Feb, Type 2 diabetes mellitus with other diabetic kidney complication E11.29 [facility] [id number] [place] [address] 35089- 6634 Feb, Gastroesophageal reflux disease without esophagitis K21.9 [facility] [id number] [place] [address] 20546- 3117 Feb, Type 2 diabetes mellitus with other diabetic kidney complication E11.29 [facility] [id number] [place] [address] 49356- 7160 Feb, 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 of anticoagulant Z79.01 [place] [facility] [id number] [place] [address] 65168- 6726 Jan, 2017 Type 2 diabetes mellitus with other diabetic kidney complication E11.29 [facility] [address] [address] 8447 Jan, 2017 Type 2 diabetes mellitus with other diabetic kidney complication E11.29 [facility] [id number], [place] [address]- 1896 Jan, Chronic pain syndrome G89.4 [facility] [address] [facility] [id number] [address]- 4142 Jan, [facility] [address] [facility] [id number], [place] [address]- 2742 Jan, [facility] [id number], [place] [address]- 8671 Jan, [facility] [id number], [place] [address]- 2211 Jan, [facility] [address], [place] [address]- 4830 Jan, Primary insomnia F51.01 ; Type 2 diabetes mellitus with other diabetic kidney complication E11.29 ; Chronic pain syndrome G89.4 and Essential hypertension I10 [facility] [id number], [place] [address]- 3478 Jan, Primary insomnia F51.01 [facility] [address], [place] [address]- 1855 Jan, Type 2 diabetes mellitus with other diabetic kidney complication E11.29 [facility] [address] [facility] [id number], [place] [address]- 1443 Jan, [facility] [address], [place] [address]- 6843 Jan, Chronic obstructive pulmonary disease, unspecified COPD type J44.9 [facility] [id number], [place] [address]- 5668 Jan, Essential hypertension I10 ; Type 2 [...] associated with type 2 diabetes mellitus E11.42 [facility] [id number] [place] [address] 79032- 6174 Jan, Gastroesophageal reflux disease without esophagitis K21.9 [facility] [id number] [place] [address] 60214- 7696 Dec, [facility] [id number] [place] [address] 28663- 3226 Dec, [facility] [id number] [place] [address] 54076- 0091 Dec, [facility] current use of anticoagulant Z79.01 ; Chronic pain syndrome G89.4 and Essential hypertension I10 [facility] [id number] [place] [address] 03030- 2651 Dec, [facility] [id number] [place] [address] 20355- 7233 Dec, Type 2 diabetes mellitus with other diabetic kidney complication E11.29 [facility] [id number], [place] [address]- 8105 Dec, [facility] [id number] [place] [address] 75542- 5906 Dec, Gastroesophageal reflux disease without esophagitis K21.9 [facility] [id number], [place] [address]- 3397 November, Type 2 diabetes mellitus with other diabetic kidney complication E11.29 [facility] [id number], [place] [address]- 5087 November, [facility] [id number] [place] [address] 10739- 6460 November, Type 2 diabetes mellitus with other diabetic kidney complication E11.29 [facility] [address], [place] [address]- 0242 November, [facility] [id number] [place] [address] 96119- 8016 November, Type 2 diabetes mellitus with other diabetic kidney complication E11.29 [facility] [id number] [place] [address] 42827- 6026 November, [facility] [id number], [place] [address]- 6016 Oct, Essential hypertension I10 [facility] [id number] [place] [address] 97057- 9323 Oct, Psoriasis of scalp L40.9 [facility] [id number] [place] [address] 47858- 1046 Oct, Essential hypertension I10 and Chronic pain syndrome G89.4 [facility] [id number], [place] [address]- 1577 Oct, [facility] [id number] [place] [address] 22142- 2866 Sep, Type 2 diabetes mellitus with other diabetic kidney complication E11.29 [facility] [address], [place] [address]- 5348 Sep, [facility] [address], [place] [address]- 3763 Sep, Type 2 diabetes mellitus with other diabetic kidney complication E11.29 [facility] [address], [place] [address]- 5283 Sep, Type 2 diabetes mellitus with other diabetic kidney complication E11.29 [facility] [address], [place] [address]- 5815 Sep, Type 2 diabetes mellitus with other diabetic kidney complication E11.29 ; Chronic kidney disease, stage 4 (severe) N18.4 ; Chronic obstructive pulmonary disease, unspecified COPD type J44.9 ; Iron deficiency anemia due to chronic blood loss D50.0 ; 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 of anticoagulant Z79.01 ; Gastroesophageal reflux disease without esophagitis K21.9 ; Essential hypertension I10 ; Primary insomnia F51.01 ; Depression, unspecified depression type F32.9 ; Chronic pain syndrome G89.4 ; Wrist pain, right M25.531 ; Paresthesia of right upper extremity R20.2 and Psoriasis of scalp L40.9 [place] [address] 65164- 9704 Sep, [place] [address] 60244- 5212 Aug, Essential hypertension I10 [address] 11597- 6805 Aug, History of DVT (deep vein thrombosis) Z86.[address] 60921- 8568 Aug, [place] [id number] [place] [address] 99374- 1247 Jul, [address] 19418- 4482 Jul, [place] [id number] [place] [address] 37371- 1433 Jul, [facility] current use of anticoagulant Z79.01 ; Chronic pain syndrome G89.4 and Chronic kidney disease, stage 4 (severe) N18.4 [place] [id number] [place] [address] 75279- 6210 Jul, [address] 64500- 7229 Jul, [place] [id number] [place] [address] 64920- 4010 Jul, [address] 54297- 6541 Jul, [place] [address], [place] [address]- 5258 Jul, [address] [place] [address] 37246- 7858 Jul, Type 2 diabetes mellitus with other diabetic kidney complication E11.29 [address] [place] [address] 36238- 3875 Jul, History of DVT (deep vein thrombosis) Z86.718 [place] [id number] [place] [address] 63563- 4944 Jun, [place] [id number] [place] [address] 97358- 8204 Jun, History of DVT (deep vein thrombosis) Z86.718 [place] [id number] [place] [address] 95206- 5160 15 Jun, 2016 Post traumatic stress disorder (PTSD) F43.10 [address] [place] [address] 73247- 3610 07 Jun, 2016 Type 2 diabetes mellitus [...] pain M79.641 and Right wrist pain M25.531 [address] [place] [address] 47448- 9451 May, [facility] [address] [facility] [id number] [place] [address]- 4525 May, [facility] [address] [facility] [id number] [place] [address], [place] [address] 2545 May, [facility] [id number] [place] [address]- 5227 May, [facility] [address] [facility] [id number] [place] [address], [place] [address]- 7348 May, Anemia in other chronic diseases classified elsewhere D63.8 [facility] [address] [facility] [id number] [place] [address], [place] [address]- 2375 May, [facility] [id number] [place] [address], [place] [address]- 0568 Apr, [facility] [id number] [place] [address] 52763- 7105 27 Mar, 2016 Dermatofibroma D23.9 [facility] [id number] [place] [address]- 9853 20 Mar, 2016 [facility] [id number] [place] [address], [place] [address]- 3636 14 Mar, 2016 Chronic pain syndrome G89.4 [facility] [address] [place] [address]- 0613 09 Mar, 2015 [facility] [id number], [place] [address] 2549 07 Mar, 2015 [facility] [id number] [place] [address]- 2548 Mar, [facility] [id number] [place] [address], [place] [address]- 2541 Feb, [facility] [address] [facility] [id number] [place] [address]- 2582 Feb, [facility] [id number] [place] [address] 38156- 6402 Feb, [facility] [id number], [place] [address]- 7406 Feb, [facility] [address], [place] [address]- 9488 Feb, [facility] [address], [place] [address]- 6761 Feb, [place] [id number] [place] [address] 11947- 6700 Feb, Type 2 diabetes mellitus with other diabetic kidney complication E11.29 ; Diabetic polyneuropathy associated with type 2 diabetes mellitus E11.42 ; Iron deficiency anemia due to chronic blood loss D50.0 ; Chronic obstructive pulmonary disease, unspecified COPD type J44.9 ; 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 of 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 ; History of DVT (deep vein thrombosis) Z86.718 ; Chronic pain syndrome G89.4 ; Oxygen desaturation during sleep G47.34 ; Sleep apnea in adult G47.33 ; Gastroesophageal reflux disease without esophagitis K21.9 ; Essential hypertension I10 ; Primary insomnia F51.01 ; Depression, unspecified depression type F32.9 and Renal failure, chronic, stage 4 (severe) N18.4 [place] [id number] [place] [address] 90691- 7735 Feb, Skin tags, multiple acquired L91.8 [address], [place] [address]- 3016 Jan, [facility] [id number] [id number] Jan, Dental examination Z01.20 [place] [address], [place] [address]- 8927 Jan, [place] [id number] [place] [address] 87620- 3022 Jan, Type 2 diabetes mellitus with other [...] Renal failure, chronic, stage 4 (severe) N18.4 [facility] [id number] [place] [address] 74137- 6039 Dec, Diabetes type 2, uncontrolled E11.[address] 23311- 3965 Dec, [address] 31775- 6055 Dec, Type 2 diabetes mellitus with other [...] F51.01 and Depression, unspecified depression type F32.9 [facility] [id number] [place] [address] [id number] Dec, Dental caries K02.9 [facility] [address] [facility] [id number] [place] [address] [id number] Dec, [facility] [id number] [place] [address] [id number] Dec, Dental examination Z01.20 [facility] [id number] [place] [address] [id number] November, Dental examination Z01.20 and Dental caries K02.9 [facility] [id number] [id number] Oct, [facility] [id number] [place] [address] [id number] Oct, [facility] [address] [id number] [id number] Sep, [facility] [id number] [place] [address] [id number] Sep, [facility] [id number] [place] [address] [id number] Sep, [facility] [address] [id number] [place] [address] [id number] Sep, Other chronic pain 338.29 [facility] [id number] [place] [address] [id number] Aug, Diabetes type 2, uncontrolled E11.65 and Morbid obesity due to excess calories E66.01 [facility] [id number] [place] [address] [id number] Aug, Hair loss L65.9 [facility] [id number] [place] [address] [id number] Aug, [facility] [id number] [place] [address] [id number] Jul, [facility] [id number] [place] [address] [id number] Jul, [facility] [id number] [id number] Jun, [facility] [id number] [place] [address] [id number] Jun, Hair loss L65.9 and Disorder of the skin and subcutaneous tissue, unspecified L98.9 [facility] [id number] [place] [address] [id number] May, Type 2 diabetes mellitus with other diabetic kidney complication E11.29 ; Type 2 diabetes mellitus with hyperglycemia E11.65 ; Morbid obesity due to excess calories E66.01 and Essential hypertension I10 [facility] [id number] [place] [address] [id number] May, Diabetes type 2, uncontrolled E11.65 ; Encounter for immunization Z23 and Morbid obesity due to excess calories E66.01 [address] [id number] [place] [address] [id number] May, [facility] [id number] [place] [address] 98576- 5706 Apr, [address] [id number] [place] [address] [id number] Apr, Hyperglycemia R73.9 [place] [id number] [place] [address] [id number] Apr, [address] [id number] Apr, Depression F32.9 ; Encounter for immunization Z23 ; Hyperglycemia R73.9 and Anemia in other chronic diseases classified elsewhere D63.8 [facility] [id number] [place] [address] [id number] Mar, [address] [id number] [place] [address] [id number] Feb, Positive occult stool blood test 792.1 [place] [id number] [place] [address] [id number] Feb, Depression 311 ; Other chronic pain 338.29 and Diabetes with renal manifestations, type II or unspecified type, not stated as uncontrolled 250.40 [facility] [id number] [address] Feb, Occult blood in stools 792.[id number] [place] [address] [id number] Feb, Anemia 285.9 ; Occult blood positive stool 792.1 ; Unspecified essential hypertension 401.9 and Other chronic pain 338.[id number] [place] [address] [id number] Feb, [address] [id number] [place] [address] [id number] Feb, Anemia 285.9 [address] [id number] [place] [address] [place] [id number] Feb, [facility] [place] [id number][place] [id number] Feb, [facility] [place] [id number] [place] [address] [id number] Feb, Diabetes with renal manifestations, type II or unspecified type, not stated as uncontrolled 250.40 ; Other chronic pain 338.29 ; Unspecified essential hypertension 401.9 ; Anemia 285.9 and Depression 311 [facility] [place] [id number] [place] [address] [id number] Jan, [facility] [place] [id number] [place] [address] [id number] Jan, Anemia 285.9 and Follow up V67.9 [facility] [place] [id number] [place] [address] [id number] Jan, [facility] [place] [id number] [place] [address] [id number] Jan, [facility] [place] [id number] [place] [address] [id number] Jan, [facility] [place] [id number] [place] [address] [id number] Dec, [facility] [id number] [place] [address] 71715- 2006 Oct, [facility] [id number] [place] [address] 54254- 1816 Oct, [facility] [id number] [place] [address] 96902- 2546 Sep, [facility] [place] [address] [id number] [id number] Sep, [facility] [id number] [place] [address] 20455- 6316 Sep, [facility] [place] [id number], [place] [id number] Aug, [facility] [id number] [place] [address] 36208- 2817 Aug, [facility] [place] [facility] [address] [id number], [place] [address]- 3616 Aug, [facility] [place] [address] [id number] [place] [id number] Aug, [facility] [place] [facility] [address] [facility] [id number] [place] [address]- 5666 Aug, [facility] [place] [facility] [address] [facility] [id number] [place] [address]- 1146 Aug, [facility] [place] [address] [id number], [place] [id number] Aug, [facility] [place] [facility] [address] [facility] [id number] [place] [address]- 8576 Aug, [facility] [place] [address] [facility] [id number], [place] [id number] Jul, [facility] [place] [facility] [address]00565100[place], [place] [address]- 3926 Jul, [facility] [place] [facility] [address] [id number], [place] [address]- 8188 Jul, [facility] [place] [address] [facility] [id number], [place] [id number] Jul, [facility] [place] [facility] [address]00565100[place], [place] [address]- 2276 Jul, [facility] [place] [address] [facility] [id number], [place] [id number] Jul, [facility] [place] [facility] [address] [facility] [id number], [place] [address]- 6456 Jul, [facility] [place] [address] [id number] [place] [id number] Jun, [facility] [place] [address] [facility] [id number], [place] [id number] Jun, [facility] [place] [facility] [address] [id number], [place] [address]- 5627 Jun, [facility] [place] [facility] [address] [facility] [id number], [place] [address]- 4068 Jun, [facility] [place] [address] [id number] [place] [id number] Jun, [facility] [place] [facility] [address] [facility] [id number], [place] [address]- 6021 Jun, [facility] [place] [address] [id number] [place] [id number] May, [facility] [place] [facility] [address] [facility] [id number][place] 958[place]- 5004 May, [facility] [place] [facility] [address] [facility] [id number], [place] [address]- 6491 May, [facility] [place] [address] [id number], [place] [id number] Apr, [facility] [place] [facility] [address] [facility] [id number], [place] 558964- 5419 Apr, [facility] [place] [address] [id number], [place] [id number] Apr, [facility] [place] [address] [facility] [id number], [place] [id number] Apr, [facility] [place] [facility] [address] [facility] [id number], [place] 841751- 9590 Apr, [facility] [place] [facility] [address] [facility] [id number], [place] [address]- 9692 Apr, [facility] [place] [address] [id number], [place] [id number] Mar, [facility] [place] [facility] [address] [facility] [id number], [place] 30913805- 0968 18 Mar, 2014 [facility] [place] [address] [id number], [place] [id number] Mar, [facility] [place] [facility] [address] [facility] [id number], [place] 918329- 5286 17 Mar, 2014 [facility] [place] [address] [facility] [id number], [place] [id number] 16 Mar, 2014 [facility] [place] [facility] [address] [facility] [id number] [place] [address]- 8756 Mar, [facility] [place] [address] [id number] [place] [id number] Mar, [facility] [place] [facility] [address] [facility] [id number] [place] [address]- 6186 Mar, [facility] [place] [address] [id number] [place] [id number] Mar, [facility] [place] [facility] [address] [id number] [place] [address]- 8583 Mar, [facility] [place] [address] [id number] [place] [id number] Feb, [facility] [place] [facility] [address] [facility] [id number] [place] [address]- 9926 Feb, [facility] [place] [address] [id number] [place] [id number] Jan, [facility] [place] [facility] [address] [facility] [id number] [place] [address]- 9767 Jan, [facility] [place] [address] [facility] [id number] [place] [id number] Jan, [facility] [place] [facility] [address] [facility] [id number] [place] [address]- 3595 Jan, [facility] [place] [address] [id number] [place] [id number] Jan, [facility] [place] [facility] [address] [facility] [id number] [place] [address]- 0739 Jan, [facility] [place] [facility] [address] [facility] [id number] [place] [address]- 0244 Dec, [facility] [place] [facility] [address] [facility] [id number] [place] [address]- 3158 Dec, [facility] [place] [address] [id number] [place] [id number] November, [facility] [place] [facility] [address] [facility] [id number] [place] [address]- 1294 November, [facility] [place] [address] [id number] [place] [id number] November, [facility] [place] [facility] [address] [id number] [place] [address]- 9365 November, [facility] [place] [address] [facility] [id number] [place] [id number] Oct, [facility] [place] [facility] [address] [facility] [id number] [place] [address]- 3687 Oct, [facility] [place] [facility] [address] [facility] [id number] [place] [address]- 8776 Oct, [facility] [place] [facility] [address] [facility] [id number] [place] [address]- 1292 Oct, [facility] [place] [facility] [address] [facility] [id number] [place] [address]- 5447 Oct, [facility] [place] [facility] [address] [facility] [id number] [place] [address]- 1517 Oct, [facility] [place] [address] [facility] [id number], [place] [id number] Sep, [facility] [place] [address] [facility] [id number], [place] [id number] Sep, [facility] [place] [facility] [address] [facility] [id number], [place] [address]- 5257 Sep, [facility] [place] [facility] [address] [facility] [id number], [place] [address]- 8767 Sep, [facility] [place] [address] [facility] [id number], [place] [id number] Sep, [facility] [place] [facility] [address] [facility] [id number] [place] [address]- 1375 Sep, [facility] [place] [facility] [address] [facility] [id number], [place] [address]- 4076 Aug, [facility] [place] [facility] [address] [facility] [id number], [place] [address]- 1558 Aug, [facility] [place] [address] [facility] [id number], [place] [id number] Aug, [facility] [place] [address] [id number] [place] [id number] Aug, [facility] [place] [facility] [address] [facility] [id number], [place] [address]- 1046 Aug, [facility] [place] [address] [facility] [id number] [place] [id number] Aug, [facility] [place] [facility] [address] [facility] [id number], [place] [address]- 4516 Aug, [facility] [place] [address] [facility] [id number] [place] [id number] Aug, [facility] [place] [facility] [address] [id number], [place] [address]- 2826 Aug, [facility] [place] [address] [facility] [id number] [place] [id number] Aug, [facility] [place] [facility] [address] [id number], [place] [address]- 7476 Aug, [facility] [place] [address] [facility] [id number] [place] [id number] Aug, [facility] [place] [facility] [address] [id number], [place] [address]- 9044 Aug, [facility] [place] [facility] [address] [id number], [place] [address]- 2873 Jul, [facility] [place] [address] [facility] [id number], [place] 098708373 Jun, [facility] [place] [facility] [address] [facility] [id number], [place] [address]- 3261 Jun, [facility] [place] [facility] [address] [facility] [id number], [place] [address]- 2128 Jun, [facility] [place] [facility] [address] [facility] [id number], [place] [address]- 9536 Jun, [facility] [place] [address] [facility] [id number], [place] [id number] Jun, [facility] [place] [facility] [address] [id number], [place] [address]- 9426 Jun, [facility] [place] [facility] [address] [id number] [place] [address]- 7076 Jun, [facility] [place] [address] [facility] [id number], [place] [id number] Jun, [facility] [place] [facility] [address] [id number] [place] [address]- 2796 Jun, [facility] [place] [facility] [address] [id number] [place] [address]- 0661 May, [facility] [place] [address] [facility] [id number], [place] [id number] May, [facility] [place] [facility] [address] [facility] [id number] [place] [address]- 9196 May, [facility] [place] [facility] [address] [id number], [place] [address]- 9010 May, [facility] [place] [facility] [address] [facility] [id number], [place] [address]- 3533 May, [facility] [place] [facility] [address] [facility] [id number], [place] [address]- 3166 May, [facility] [place] [address] [facility] [id number], [place] 362274116 May, [facility] [place] [facility] [address] [facility] [id number], [place] [address]- 2546 May, [facility] [place] [address] [facility] [id number], [place] 587953250 May, [facility] [place] [facility] [address] [id number], [place] [address]- 2546 May, [facility] [place] [address] [facility] [id number], [place] 180983868 Apr, [facility] [place] [facility] [address] [facility] [id number], [place] [address]- 9536 Apr, [facility] [place] [facility] [address] [facility] [id number], [place] [address]- 4798 Apr, [facility] [address] [facility] [id number], [place] 286123657 Apr, [facility] [place] [facility] [address] [facility] [id number], [place] [address]- 0340 Apr, [facility] [address] [facility] [id number], [place] [address]- 8651 Apr, [facility] [place] [address] [facility] [id number], [place] [id number] Apr, [facility] [place] [facility] [address] [facility] [id number], [place] [address]- 3183 Apr, [facility] [place] [facility] [address] [facility] [id number], [place] [address]- 5106 Apr, [facility] [place] [facility] [address] [facility] [id number], [place] [address]- 9507 Apr, [facility] [place] [address] [facility] [id number], [place] 632148514 Apr, [facility] [place] [facility] [address] [facility] [id number], [place] [address]- 0884 Apr, [facility] [place] [address] [id number], [place] 788277468 Apr, [facility] [place] [facility] [address] [facility] [id number], [place] [address]- 6724 Apr, [facility] [place] [address] [facility] [id number], [place] 267326636 Apr, [facility] [place] [facility] [address] [facility] [id number], [place] [address]- 8026 Apr, [facility] [place] [facility] [address] [facility] [id number], [place] [address]- 7692 Apr, [facility] [place] [facility] [address] [facility] [id number], [place] [address]- 6966 Apr, [facility] [place] [address] [facility] [id number], [place] 507358345 Apr, [facility] [place] [facility] [address] [facility] [id number], [place] [address]- 4573 Mar, [facility] [address] [facility] [id number], [place] [address]- 2137 Mar, [facility] [place] [address] [id number] [place] [id number] Mar, [facility] [place] [address] [id number] [place] 171702364 Mar, [facility] [place] [address] [id number] [place] 156010378 Mar, [facility] [place] [address] [id number] [place] 460806492 Feb, [facility] [place] [address] [id number] [place] 928519015 Feb, [facility] [place] [address] [id number] [place] 965447025 Feb, [facility] [address] [facility] [id number], [place] 733497- 3483 Feb, [facility] [place] [address] [id number] [place] 284726080 Feb, [facility] [place] [address] [id number] [place] [id number] Feb, [facility] [place] [address] [id number] [place] 478537377 Feb, [facility] [place] [address] [id number] [place] 694926692 Feb, [facility] [place] [address] [id number] [place] 404516015 Feb, [facility] [place] [address] [id number] [place] 469057065 Jan, [facility] [place] [address] [id number] [place] 763332602 Jan, [facility] [place] [address] [id number] [place] [id number] Jan, [facility] [place] [address] [id number] [place] 666002878 Jan, [facility] [place] [address] [id number] [place] 505610316 Jan, [facility] [address] [facility] [id number], [place] [address]- 6311 Jan, [facility] [place] [address] [id number] [place] [id number] Jan, [facility] [place] [address] [id number] [place] 921503194 Jan, [facility] [place] [address] [id number] [place] 209881249 Dec, [facility] [place] [address] [id number] [place] [id number] November, [facility] [place] [address] [id number] [place] 710657472 November, [facility] [place] [address] [id number] [place] [id number] November, [facility] [place] [address] [id number] [place] 453945574 November, [facility] [place] [address] [id number] [place] 170439209 November, [facility] [place] [address] [id number] [place] [id number] November, [facility] [place] [address] [id number] [place] 012211252 Jul, [facility] [place] [address] [id number] [place] 684457396 Jul, [facility] [place] [address] [id number] [place] 351517857 Jul, [facility] [place] [address] [id number] [place] 989738137 Jun, [facility] [address] [facility] [id number], [place] [address]- 2630 Jun, [facility] [place] [address] [id number] [place] [id number] May, [facility] [address]00565100[place], [place] [address]- 1930 May, [facility] [place] [address] [id number], [place] 444286446 May, [facility] [place] [facility] [address] [facility] [id number], [place] [address]- 5706 May, [facility] [place] [address] [id number], [place] [id number] May, [facility] [address] [facility] [id number], [place] [address]- 8016 May, [facility] [place] [address] [id number], [place] [id number] Apr, [facility] [address] [facility] [id number] [place] [address] 40958[address] Apr, [facility] [place] [facility] [address] [facility] [id number], [place] [address] Apr, [facility] [place] [address] [id number][place] [id number] Apr, [facility] [place] [address] [id number][place] [id number] Apr, [facility] [id number], [place] [address] Apr, [facility] [place] [facility] [address] [facility] [id number], [place] [address] Apr, [facility] [place] [address] [id number][place] [id number] Apr, [facility] [place] [facility] [address] [facility] [id number], [place] [address] Apr, [facility] [place] [address] [id number][place] [id number] Apr, [facility] [place] [address] [id number][place] [id number] Apr, [facility] [place] [address] [id number], [place] [id number] Mar, [facility] [place] [address] [id number], [place] [id number] Feb, [facility] [place] [address] [id number] [place] [id number] Jan, [facility] [place] [address] [id number] [place] [id number] Dec, [facility] [place] [address] [id number] [place] [id number] Dec, [facility] [place] [address] [id number] [place] [id number] Dec, [facility] [place] [address] [id number] [place] [id number] Dec, [facility] [place] [address] [id number] [place] [id number] Dec, [facility] [place] [address] [id number] [place] [id number] November, [facility] [place] [address] [id number] [place] [id number] November, [facility] [place] [address] [id number] [place] [id number] November, [facility] [address] [facility] [id number], [place] [address] November, [facility] [place] [address] [id number] [place] [id number] November, [facility] [place] [address] [id number] [place] [id number] November, [facility] [place] [address] [id number] [place] [id number] Oct, [facility] [place] [address] [id number] [place] [id number] Oct, [facility] [place] [address] [id number] [place] [id number] Oct, [facility] [place] [address] [id number] [place] [id number] Oct, [facility] [place] [address] [id number] [place] [id number] Oct, [facility] [place] [address] [id number] [place] [id number] Oct, [facility] [place] [address] [id number], [place] [id number] Sep, [facility] [place] [address] [id number] [place] [id number] Aug, [facility] [place] [address] [id number] [place] [id number] Aug, [facility] [place] [address] [id number] [place] [id number] Jul, [facility] [place] [facility] [address] [facility] [id number], [place] [address] Jun, [facility] [place] [facility] [address] [id number], [place] [address] Jun, [facility] [place] [facility] [address] [facility] [id number], [place] [address] Jun, [facility] [place] [facility] [id number], [place] [address] Jun, [facility] [place] [facility] [address] [id number], [place] [address] May, [facility] [place] [facility] [address] [id number], [place] [address] May, [facility] [place] [facility] [id number], [place] [address] Apr, [facility] [place] [facility] [id number], [place] [address] Apr, [facility] [place] [facility] [address] [id number], [place] [address] Apr, [facility] [place] [facility] [address] [facility] [id number], [place] [address] Feb, [facility] [place] [facility] [address] [facility] [id number], [place] [address] 15 Aug, 2010 [facility] [place] [facility] [address] [facility] [id number], [place] [address] Jul, [facility] [place] [facility] [address] [facility] [id number], [place] [address] 30 Jun, 2010 [facility] [address] [id number] [place] [address] May, [facility] [place] [facility] [address] [id number], [place] [address] May, [facility] [address] [facility] [id number] [place] [address]- [address] May, [facility] [place] [facility] [address] [id number] [place] [address] May, [facility] [address] [id number] [place] [address], [place] [address] May, [facility] [place] [facility] [address] [facility] [id number] [place] [address] Aug, [facility] [address] [facility] [id number], [place] [address] Jun, [facility] [place] [facility] [address] [facility] [id number], [place] [address] Jun, [facility] [address] [facility] [id number], [place] [address] Jun, [facility] [place] [facility] [address] [facility] [id number], [place] [address] 24 May, 2009 [facility] [place] [facility] [address] [facility] [id number], [place] [address] 28 Apr, 2009 [facility] [place] [facility] [address] [facility] [id number], [place] [address] 27 Apr, 2009 [facility] [place] [facility] [address] [address] [facility] [id number] [address] 15 Apr, 2009 [facility] [address] [facility] [id number], [place] [address] 20 Jan, 2009 [facility] [address] [facility] [id number], [place] [address] 13 Oct, 2008 [facility] [address] [facility] [id number] [place] [id number] May, [facility] [address] [facility] [id number], [place] [address] May, IMMUNIZATIONS No Known Immunizations SOCIAL HISTORY Never Assessed REASON FOR VISIT Refill request PLAN OF CARE VITAL SIGNS MEDICATIONS Medication Instructions Dosage Frequency Start Date End Date Duration Status Protonix 40 mg Orally Once a day 1 tablet 24h 90 days Active Carafate 1 GM Orally Twice a day 1 tablet on an empty stomach 12h 90 days Active Eliquis 5 mg Orally 2 times a day as directed 12h 30 days Active Victoza 18 MG/3ML INJECT 1.8 MG SUBCUTANEOUSLY ONCE DAILY... Active Verapamil HCl ER 240 MG Orally Once a day in the morning 1 tablet Active Cozaar 50 mg Orally Once a day 1 tablet 24h Active Gabapentin 600 MG Orally 3 times a day 1 tablet 8h 28 days Active RESULTS No Results PROCEDURES No [...] Dialysis Rut[facility] Reveles 2012 -Dr. Simon now [facility] Medical History Colonoscopy (polyps 2 ) [...] back Surgical History surgical breast bx by Dr.Suwan- fibroadenoma, surrounding mild intraductal hyperplasia w/o atypia, [...]
--- OUTSIDE RECORDS SUMMARY | 2018-01-17 09:49 | XMS REPORT ---
Author Author CHELSY VILLAFANA [facility] Address [address] [place] [address] Care Team Providers Care Student Admissions Clerk Name Role Phone CHELSY VILLAFANA Unavailable PROBLEMS Type Condition ICD9-CM Code PAC90-DM Code Onset Dates Condition Status SNOMED Code Problem Chronic kidney disease, stage 4 (severe) N18.4 Active 140992116 Problem Psoriasis of scalp L40.9 Active 500022261 Problem Type 2 diabetes mellitus with hyperglycemia E11.65 Active 211221051967209 Problem Fibromyalgia M79.7 Active 129117526 Problem History of DVT (deep vein thrombosis) Z86.718 Active 300457638 Problem Carpal tunnel syndrome, bilateral G56.03 Active 39907931400081937 Problem Type 2 diabetes mellitus with other diabetic kidney complication E11.29 Active 297684661 Problem Anemia in other chronic diseases classified elsewhere D63.8 Active 266805572 Problem long-term 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 Active 290875205 Problem Paresthesia of right upper extremity R20.2 Active 78070782 Problem Bilateral lower extremity edema R60.0 Active 034250634 Problem Supplemental oxygen dependent Z99.81 Active 542294203850 Problem Sleep apnea in adult G47.33 Active 30062357 Problem Chronic pain syndrome G89.4 Active 437248062 Problem 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 Active 821081091 Problem Essential hypertension I10 Active 76268061 Problem Gastroesophageal reflux disease without esophagitis K21.9 Active 700767989 Problem Chronic obstructive pulmonary disease, unspecified COPD type J44.9 Active 58571113 Problem 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 Active 487262382928871 Problem Primary insomnia F51.01 Active 8360016 Problem Oxygen desaturation during sleep G47.34 Active 075124057 Problem Right carpal tunnel syndrome G56.01 Active 739946923904815 Problem Diabetic polyneuropathy associated with type 2 diabetes mellitus E11.42 Active 85051120 Problem Depression, unspecified depression type F32.9 Active 48799580 ALLERGIES No Information ENCOUNTERS Encounter Location Date Diagnosis [address] [id number] Dec, [address] [place] [id number] Dec, [address] [id number] Dec, Essential hypertension I10 ; Type 2 diabetes mellitus with other diabetic kidney complication E11.29 ; Depression, unspecified depression type F32.9 ; Supplemental oxygen dependent Z99.81 ; Chronic pain syndrome G89.4 ; Fibromyalgia M79.7 ; Carpal tunnel syndrome, bilateral G56.03 and Chronic kidney disease, stage 4 (severe) N18.4 [facility] [id number] [place] [address] 51480- 6887 Dec, Essential hypertension I10 [facility] [address] 68199- 0180 November, Type 2 diabetes mellitus with other diabetic kidney complication E11.29 [facility] [id number] [place] [address] 29167- 9479 November, Chronic pain syndrome G89.4 [facility] [id number] [place] [address] 61290- 4120 November, [facility] [id number] [place] [address] 68134- 6688 November, [facility] [id number] [place] [address] 72709- 5389 November, [facility] [id number] [place] [address] 88243- 4658 Oct, Type 2 diabetes mellitus with other diabetic kidney complication E11.29 [facility] [id number] [place] [address] 30120- 5653 Oct, Primary insomnia F51.01 [address] [id number] [place] [address] [id number] Oct, Bilateral lower extremity edema R60.0 [facility] [id number] [place] [address] 86028- 4894 Oct, [facility] [id number] [place] [address] 23010- 7363 Sep, Type 2 diabetes mellitus with other diabetic kidney complication E11.29 and Chronic obstructive pulmonary disease, unspecified COPD type J44.9 [facility] [id number] [place] [address] 83342- 8435 15 Aug, 2017 Type 2 diabetes mellitus with other diabetic kidney complication E11.29 [facility] [id number] [place] [address] 31312- 3292 12 Aug, 2017 Gastroesophageal reflux disease without esophagitis K21.9 ; long-term current use of anticoagulant Z79.01 ; Chronic pain syndrome G89.4 ; Essential hypertension I10 and Type 2 diabetes mellitus with other diabetic kidney complication E11.29 [facility] [id number] [place] [address] 90339- 8202 08 Aug, 2017 Chronic pain syndrome G89.4 [facility] [id number] [place] [address] 52144- 0874 Aug, Type 2 diabetes mellitus with other diabetic kidney complication E11.29 [facility] [id number] [place] [address] 91128- 9221 Jul, Diabetic polyneuropathy associated with type 2 diabetes mellitus E11.42 [facility] [id number] [place] [address] 19943- 4812 Jul, Primary insomnia F51.01 [facility] [id number] [place] [address] 06100- 3513 Jul, [facility] [id number] [place] [address] 91415- 0490 Jul, Type 2 diabetes mellitus with other diabetic kidney complication E11.29 and Chronic obstructive pulmonary disease, unspecified COPD type J44.9 [facility] [id number] [place] [address] 77742- 1016 Jul, Type 2 diabetes mellitus with other diabetic kidney complication E11.29 [facility] [address] [place] [address] 29191- 4818 Jun, Type 2 diabetes mellitus with other diabetic kidney complication E11.29 [facility] [address] [address]- 6153 Jun, [facility] [id number] [place] [address] 53274- 8276 Jun, Chronic obstructive pulmonary disease, unspecified COPD type J44.9 [address] [id number] [place] [address] 05083- 8047 May, Type 2 diabetes mellitus with other diabetic kidney complication E11.29 [facility] [address] [place] [address] 16113- 0159 May, 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 and Essential hypertension I10 [facility] [address] [place] [address] 67744- 7987 May, Anemia in other chronic diseases classified elsewhere D63.8 ; Chronic obstructive pulmonary disease, unspecified COPD type J44.9 ; Oxygen desaturation during sleep G47.34 ; Sleep apnea in adult G47.33 and Supplemental oxygen dependent Z99.81 [address] [address]- 2627 May, Type 2 diabetes mellitus with other diabetic kidney complication E11.29 ; Essential hypertension I10 ; Chronic pain syndrome G89.4 ; BMI 40.0-44.9, adult Z68.41 ; Gastroesophageal reflux disease without esophagitis K21.9 ; 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 ; 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 ; Diabetic polyneuropathy associated with type 2 diabetes mellitus E11.42 ; Edema of both legs R60.0 and Supplemental oxygen dependent Z99.81 [facility] [address] [address]- 5137 May, [facility] [id number] [place] [address] 91855- 1000 May, Essential hypertension I10 and Gastroesophageal reflux disease without esophagitis K21.9 [facility] [id number] [place] [address] 21546- 9375 May, [facility] [id number] [place] [address] 53436- 5903 May, Type 2 diabetes mellitus with other diabetic kidney complication E11.29 and long-term current use of anticoagulant Z79.01 [facility] [id number] [place] [address] 37212- 5103 Apr, Chronic pain syndrome G89.4 and Essential hypertension I10 [facility] [id number] [place] [address] 92222- 4408 Apr, Type 2 diabetes mellitus with other diabetic kidney complication E11.29 [facility] [address] 25227- 0339 Apr, Type 2 diabetes mellitus with other diabetic kidney complication E11.29 [facility] [id number] [place] [address] 77509- 6790 Apr, Essential hypertension I10 [facility] [id number] [place] [address] 92877- 8935 Apr, Gastroesophageal reflux disease without esophagitis K21.9 [facility] [id number] [place] [address] 32274- 6581 Apr, Type 2 diabetes mellitus with other diabetic kidney complication E11.29 [facility] [id number] [place] [address] 11325- 0549 Apr, Type 2 diabetes mellitus with other diabetic kidney complication E11.29 and long-term current use of anticoagulant Z79.01 [facility] [id number] [place] [address] 06151- 8809 Mar, Encounter for immunization Z23 and Preoperative examination Z01.818 [facility] [address] 15156- 2727 Mar, [facility] [address] [place] [address] 66911- 8121 Mar, Type 2 diabetes mellitus with other diabetic kidney complication E11.29 [facility] [id number] [place] [address] 23158- 4389 Mar, Type 2 diabetes mellitus with other diabetic kidney complication E11.29 [facility] [id number] [place] [address] 17950- 8148 Mar, Gastroesophageal reflux disease without esophagitis K21.9 [facility] [id number] [place] [address] 76252- 8843 Mar, Essential hypertension I10 [facility] [id number] [place] [address] 52003- 0503 Feb, 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 [facility] [id number] [place] [address] 01922- 6744 Feb, Type 2 diabetes mellitus with other diabetic kidney complication E11.29 [facility] [id number] [place] [address] 39159- 5048 Feb, Type 2 diabetes mellitus with other diabetic kidney complication E11.29 [facility] [id number] [place] [address] 21294- 3241 Feb, Type 2 diabetes mellitus with other diabetic kidney complication E11.29 [facility] [id number] [place] [address] 14503- 0614 Feb, Gastroesophageal reflux disease without esophagitis K21.9 [facility] [id number] [place] [address] 32167- 5130 Feb, Type 2 diabetes mellitus with other diabetic kidney complication E11.29 [facility] [id number] [place] [address] 15975- 5739 Feb, 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 [facility] [id number] [place] [address] 54266- 7284 Jan, 2017 Type 2 diabetes mellitus with other diabetic kidney complication E11.29 [facility] [address] [address] [address]55 Jan, 2017 Type 2 diabetes mellitus with other diabetic kidney complication E11.29 [facility] [id number] [address]- 2319 Jan, Chronic pain syndrome G89.4 [facility] [address] [facility] [address] [id number] [address]- 6395 Jan, [facility] [address] [facility] [address] [id number] [address]- 3121 Jan, [facility] [id number] [address]- 9456 Jan, [facility] [id number] [address]- 5278 Jan, [facility] [address] [address]- 4399 Jan, Primary insomnia F51.01 ; Type 2 diabetes mellitus with other diabetic kidney complication E11.29 ; Chronic pain syndrome G89.4 and Essential hypertension I10 [facility] [id number] [address]- 0400 Jan, Primary insomnia F51.01 [facility] [address] [address]- 9309 Jan, Type 2 diabetes mellitus with other diabetic kidney complication E11.29 [facility] [address] [facility] [address] [id number] [address]- 4978 Jan, [facility] [address] [address]- 5515 Jan, Chronic obstructive pulmonary disease, unspecified COPD type J44.9 [facility] [id number] [address]- 7629 Jan, Essential hypertension I10 ; Type 2 diabetes mellitus with other diabetic kidney complication E11.29 ; Chronic obstructive pulmonary disease, unspecified COPD type J44.9 ; Chronic kidney disease, stage 4 (severe) N18.4 ; Right carpal tunnel syndrome G56.01 ; 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 ; long-term (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 and Diabetic polyneuropathy associated with type 2 diabetes mellitus E11.42 [facility] [id number] [place] [address] 80950- 7752 Jan, Gastroesophageal reflux disease without esophagitis K21.9 [facility] [id number] [place] [address] 79693- 0427 Dec, [facility] [id number] [place] [address] 82315- 2732 Dec, [facility] [id number] [place] [address] 89078- 8189 Dec, long-term current use of anticoagulant Z79.01 ; Chronic pain syndrome G89.4 and Essential hypertension I10 [facility] [id number] [place] [address] 96739- 3560 Dec, [facility] [id number] [place] [address] 56834- 0946 Dec, Type 2 diabetes mellitus with other diabetic kidney complication E11.29 [facility] [id number] [address]- 8577 Dec, [facility] [id number] [place] [address] 83281- 6448 Dec, Gastroesophageal reflux disease without esophagitis K21.9 [facility] [id number] [address]- 5552 November, Type 2 diabetes mellitus with other diabetic kidney complication E11.29 [facility] [id number] [address]- 4100 November, [facility] [id number] [place] [address] 35408- 4915 November, Type 2 diabetes mellitus with other diabetic kidney complication E11.29 [facility] [address] [address]- 7647 November, [facility] [id number] [place] [address] 15157- 8183 November, Type 2 diabetes mellitus with other diabetic kidney complication E11.29 [facility] [id number] [place] [address] 47311- 4117 November, [facility] [id number] [address]- 8921 Oct, Essential hypertension I10 [facility] [id number] [place] [address] 56438- 1574 Oct, Psoriasis of scalp L40.9 [facility] [id number] [place] [address] 75958- 3514 Oct, Essential hypertension I10 and Chronic pain syndrome G89.4 [facility] [id number] [address]- 6564 Oct, [facility] [id number] [place] [address] 99785- 7138 Sep, Type 2 diabetes mellitus with other diabetic kidney complication E11.29 [facility] [address] [address]- 0390 Sep, [facility] [address] [address]- 9623 Sep, Type 2 diabetes mellitus with other diabetic kidney complication E11.29 [facility] [address] [address]- 6630 Sep, Type 2 diabetes mellitus with other diabetic kidney complication E11.29 [facility] [address] [address]- 1001 Sep, Type 2 diabetes mellitus with other diabetic kidney complication E11.29 ; Chronic kidney disease, stage 4 (severe) N18.4 ; Chronic obstructive pulmonary disease, unspecified COPD type J44.9 ; Iron deficiency anemia due to chronic blood loss D50.0 ; 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 ; Gastroesophageal reflux disease without esophagitis K21.9 ; Essential hypertension I10 ; Primary insomnia F51.01 ; Depression, unspecified depression type F32.9 ; Chronic pain syndrome G89.4 ; Wrist pain, right M25.531 ; Paresthesia of right upper extremity R20.2 and Psoriasis of scalp L40.9 [facility] [address] 88305- 0908 Sep, [facility] [address] 16097- 2663 Aug, Essential hypertension I10 [address] 78194- 3278 Aug, History of DVT (deep vein thrombosis) Z86.[address] 97062- 2940 Aug, [facility] [id number] [place] [address] 62840- 0061 Jul, [address] 63410- 2334 Jul, [facility] [id number] [place] [address] 12029- 4772 Jul, long-term current use of anticoagulant Z79.01 ; Chronic pain syndrome G89.4 and Chronic kidney disease, stage 4 (severe) N18.4 [facility] [id number] [place] [address] 54945- 1756 Jul, [address] 40353- 3424 Jul, [place] [id number] [place] [address] 36187- 3065 Jul, [address] 69717- 8093 Jul, [facility] [address] [address]- 2677 Jul, [address] [place] [address] 61996- 6476 Jul, Type 2 diabetes mellitus with other diabetic kidney complication E11.29 [address] [place] [address] 56499- 4903 Jul, History of DVT (deep vein thrombosis) Z86.718 [facility] [id number] [place] [address] 06036- 6157 Jun, [place] [id number] [place] [address] 22984- 0288 Jun, History of DVT (deep vein thrombosis) Z86.718 [address] [id number] [place] [address] 40007- 0352 15 Jun, 2016 Post traumatic stress disorder (PTSD) F43.10 [address] [place] [address] 79004- 1149 07 Jun, 2016 Type 2 diabetes mellitus [...] pain M79.641 and Right wrist pain M25.531 [address] [place] [address] 52624- 2676 May, [facility] [address] [facility] [address] [id number] [place] [address]- 0247 May, [facility] [address] [facility] [id number] [place] [address], [place] [address] 254 May, [facility] [id number] [place] [address]- 0528 May, [facility] [address] [facility] [id number] [place] [address], [place] [address]- 7603 May, Anemia in other chronic diseases classified elsewhere D63.8 [facility] [address] [facility] [id number] [place] [address], [place] [address]- 6516 May, [facility] [id number] [place] [address], [place] [address]- 7281 Apr, [facility] [id number] [place] [address] 98172- 4199 27 Mar, 2016 Dermatofibroma D23.9 [facility] [id number] [place] [address]- 2103 20 Mar, 2016 [facility] [id number] [place] [address], [place] [address]- 6512 14 Mar, 2016 Chronic pain syndrome G89.4 [facility] [address] [place] [address]- 9282 09 Mar, 2015 [facility] [id number] [address] 2541 07 Mar, 2015 [facility] [id number] [place] [address]- 2545 Mar, [facility] [id number] [place] [address], [place] [address]- 2548 Feb, [facility] [address] [facility] [address] [id number] [place] [address]- 1176 Feb, [facility] [address] [place] [address] 51210- 9982 Feb, [facility] [id number] [address]- 8273 Feb, [facility] [address] [address]- 6620 Feb, [facility] [address] [address]- 2752 Feb, [facility] [address] [place] [address] 67313- 7157 Feb, Type 2 diabetes mellitus with other diabetic kidney complication E11.29 ; Diabetic polyneuropathy associated with type 2 diabetes mellitus E11.42 ; Iron deficiency anemia due to chronic blood loss D50.0 ; Chronic obstructive pulmonary disease, unspecified COPD type J44.9 ; 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 ; History of DVT (deep vein thrombosis) Z86.718 ; Chronic pain syndrome G89.4 ; Oxygen desaturation during sleep G47.34 ; Sleep apnea in adult G47.33 ; Gastroesophageal reflux disease without esophagitis K21.9 ; Essential hypertension I10 ; Primary insomnia F51.01 ; Depression, unspecified depression type F32.9 and Renal failure, chronic, stage 4 (severe) N18.4 [facility] [address] [place] [address] 15819- 4603 Feb, Skin tags, multiple acquired L91.8 [address] [address]- 3422 Jan, [facility] [id number] [id number] Jan, Dental examination Z01.20 [facility] [address] [address]- 2394 Jan, [facility] [address] [place] [address] 69059- 6612 Jan, Type 2 diabetes mellitus with other [...] Renal failure, chronic, stage 4 (severe) N18.4 [facility] [id number] [place] [address] 93445- 4562 Dec, Diabetes type 2, uncontrolled E11.[address] 31357- 4776 Dec, [address] 51374- 4479 Dec, Type 2 diabetes mellitus with other [...] F51.01 and Depression, unspecified depression type F32.9 [facility] [address] [place] [address] [id number] Dec, Dental caries K02.9 [facility] [address] [facility] [id number] [place] [address] [id number] Dec, [facility] [id number] [place] [address] [id number] Dec, Dental examination Z01.20 [facility] [address] [place] [address] [id number] November, Dental examination Z01.20 and Dental caries K02.9 [facility] [id number] [id number] Oct, [facility] [id number] [place] [address] [id number] Oct, [facility] [address] [id number] [id number] Sep, [facility] [id number] [place] [address] [id number] Sep, [facility] [id number] [place] [address] [id number] Sep, [facility] [id number] [place] [address] [id number] Sep, Other chronic pain 338.29 [facility] [id number] [place] [address] [id number] Aug, Diabetes type 2, uncontrolled E11.65 and Morbid obesity due to excess calories E66.01 [facility] [id number] [place] [address] [id number] Aug, Hair loss L65.9 [facility] [id number] [place] [address] [id number] Aug, [facility] [id number] [place] [address] [id number] Jul, [facility] [id number] [place] [address] [id number] Jul, [facility] [id number][place] [id number] Jun, [facility] [id number] [place] [address] [id number] Jun, Hair loss L65.9 and Disorder of the skin and subcutaneous tissue, unspecified L98.9 [facility] [id number] [place] [address] [id number] May, Type 2 diabetes mellitus with other diabetic kidney complication E11.29 ; Type 2 diabetes mellitus with hyperglycemia E11.65 ; Morbid obesity due to excess calories E66.01 and Essential hypertension I10 [facility] [id number] [place] [address] [id number] May, Diabetes type 2, uncontrolled E11.65 ; Encounter for immunization Z23 and Morbid obesity due to excess calories E66.01 [id number] [place] [address] [id number] May, [facility] [id number] [place] [address]- 2807 Apr, [id number] [place] [address] [id number] Apr, Hyperglycemia R73.9 [id number] [place] [address] [id number] Apr, [address] [id number] Apr, Depression F32.9 ; Encounter for immunization Z23 ; Hyperglycemia R73.9 and Anemia in other chronic diseases classified elsewhere D63.8 [facility] [id number] [place] [address] [id number] Mar, [address] [id number] [place] [address] [id number] Feb, Positive occult stool blood test 792.1 [id number] [place] [address] [id number] Feb, Depression 311 ; Other chronic pain 338.29 and Diabetes with renal manifestations, type II or unspecified type, not stated as uncontrolled 250.40 [facility] [address]65[address] [address] 7[address] Feb, Occult blood in stools 792.[id number] [place] [address] [id number] Feb, Anemia 285.9 ; Occult blood positive stool 792.1 ; Unspecified essential hypertension 401.9 and Other chronic pain 338.29 [id number] [place] [address] [id number] Feb, [id number] [place] [address] [id number] Feb, Anemia 285.9 [id number] [place] [address] [place] [id number] Feb, [facility] [id number], [place] [id number] Feb, [facility] [id number] [place] [address] [id number] Feb, Diabetes with renal manifestations, type II or unspecified type, not stated as uncontrolled 250.40 ; Other chronic pain 338.29 ; Unspecified essential hypertension 401.9 ; Anemia 285.9 and Depression 311 [facility] [place] [id number] [place] [address] [id number] Jan, [facility] [id number] [place] [address] [id number] Jan, Anemia 285.9 and Follow up V67.9 [facility] [place] [id number] [place] [address] [id number] Jan, [facility] [id number] [place] [address] [id number] Jan, [facility] [id number] [place] [address] [id number] Jan, [facility] [id number] [place] [address] [id number] Dec, [facility] [id number] [place] [address] 63315- 7076 Oct, [facility] [id number] [place] [address] 55685- 9427 Oct, [facility] [id number] [place] [address] 31491- 2546 Sep, [facility] [address] [id number] [id number] Sep, [facility] [id number] [place] [address] 39598- 8226 Sep, [facility] [place] [id number], [place] [id number] Aug, [facility] [id number] [place] [address] 70443- 7023 Aug, [facility] [place] [facility] [address] [id number] [address]- 0[address] Aug, [facility] [address] [id number] [place] [id number] Aug, [facility] [place] [facility] [address] [facility] [id number] [place] [address]- 1146 Aug, [facility] [place] [facility] [address] [facility] 2001 [id number] [place] [address]- 5726 Aug, [facility] [place] [address] [id number], [place] [id number] Aug, [facility] [place] [facility] [address] [facility] [address] [id number] [place] [address]- 2326 Aug, [facility] [place] [address] [facility] [id number], [place] [id number] Jul, [facility] [place] [facility] [address]00565100[place] [address]- 0556 Jul, [facility] [place] [facility] [address] [id number] [address]- 1309 Jul, [facility] [address] [facility] [id number], [place] [id number] Jul, [facility] [place] [facility] [address]00565100[place] [address]- 6096 Jul, [facility] [address] [facility] [id number], [place] [id number] Jul, [facility] [place] [facility] [address] [facility] [address] [id number] [address]- 5156 Jul, [facility] [address] [id number] [place] [id number] Jun, [facility] [address] [facility] [id number], [place] [id number] Jun, [facility] [place] [facility] [address] [id number] [address]- 5433 Jun, [facility] [place] [facility] [address] [facility] [address] [id number] [address]- 5723 Jun, [facility] [address] [id number] [place] [id number] Jun, [facility] [place] [facility] [address] [facility] [address] [id number] [address]- 2117 Jun, [facility] [address] [id number] [place] [id number] May, [facility] [place] [facility] [address] [facility] [address] [id number] [place]25[place] 6565 May, [facility] [place] [facility] [address] [facility] [address] [id number] [address]- 7641 May, [facility] [address] [id number], [place] [id number] Apr, [facility] [place] [facility] [address] [facility] [address] [id number] [place]37[place] 8793 Apr, [facility] [address] [id number], [place] [id number] Apr, [facility] [address] [facility] [id number], [place] [id number] Apr, [facility] [place] [facility] [address] [facility] [address] [id number] [place]91[place]- 2208 Apr, [facility] [place] [facility] [address] [facility] [address] [id number] [address]- 0629 Apr, [facility] [address] [id number], [place] [id number] Mar, [facility] [place] [facility] [address] [facility] [address] [id number] [place] 02025074- 9603 18 Mar, 2014 [facility] [address] [id number], [place] [id number] Mar, [facility] [place] [facility] [address] [facility] [address] [id number] [place] 4229[place]- 8746 17 Mar, 2014 [facility] [address] [facility] [id number], [place] [id number] 16 Mar, 2014 [facility] [place] [facility] [address] [facility] 2001 [id number] [place] [address]- 5266 Mar, [facility] [address] [id number] [place] [id number] Mar, [facility] [place] [facility] [address] [facility] 2001 [id number] [place] [address]- 4946 Mar, [facility] [address] [id number] [place] [id number] Mar, [facility] [place] [facility] [address] [id number] [place] [address]- 5630 Mar, [facility] [address] [id number] [place] [id number] Feb, [facility] [place] [facility] [address] [facility] [address] [id number] [place] [address]- 0396 Feb, [facility] [address] [id number] [place] [id number] Jan, [facility] [place] [facility] [address] [facility] [address] [id number] [place] [address]- 1133 Jan, [facility] [address] [facility] [id number] [place] [id number] Jan, [facility] [place] [facility] [address] [facility] 2001 [id number] [place] [address]- 8901 Jan, [facility] [address] [id number] [place] [id number] Jan, [facility] [place] [facility] [address] [facility] [address] [id number] [place] [address]- 9233 Jan, [facility] [place] [facility] [address] [facility] 2001 [id number] [place] [address]- 3401 Dec, [facility] [place] [facility] [address] [facility] 2001 [id number] [place] [address]- 3098 Dec, [facility] [address] [id number] [place] [id number] November, [facility] [place] [facility] [address] [facility] [address] [id number] [place] [address]- 8302 November, [facility] [address] [id number] [place] [id number] November, [facility] [place] [facility] [address] [id number] [place] [address]- 9778 November, [facility] [address] [facility] [id number] [place] [id number] Oct, [facility] [place] [facility] [address] [facility] [address] [id number] [place] [address]- 1984 Oct, [facility] [place] [facility] [address] [facility] 2001 [id number] [place] [address]- 6949 Oct, [facility] [place] [facility] [address] [facility] 2001 [id number] [place] [address]- 6138 Oct, [facility] [place] [facility] [address] [facility] 2001 [id number] [place] [address]- 1575 Oct, [facility] [place] [facility] [address] [facility] 2001 [id number] [place] [address]- 4719 Oct, [facility] [address] [facility] [id number], [place] [id number] Sep, [facility] [address] [facility] [id number], [place] 445859159 Sep, [facility] [place] [facility] [address] [facility] [address] [id number] [address]- 9195 Sep, [facility] [place] [facility] [address] [facility] [address] [id number] [address]- 6542 Sep, [facility] [address] [facility] [id number], [place] [id number] Sep, [facility] [place] [facility] [address] [facility] 2001 [id number] [place] [address]- 8113 Sep, [facility] [place] [facility] [address] [facility] [address] [id number] [address]- 6546 Aug, [facility] [place] [facility] [address] [facility] [address] [id number] [address]- 5225 Aug, [facility] [address] [facility] [id number], [place] [id number] Aug, [facility] [address] [id number] [place] [id number] Aug, [facility] [place] [facility] [address] [facility] [address] [id number] [place] [address]- 5316 Aug, [facility] [address] [facility] [id number] [place] [id number] Aug, [facility] [place] [facility] [address] [facility] [address] [id number] [address]- 7236 Aug, [facility] [address] [facility] [id number] [place] [id number] Aug, [facility] [place] [facility] [address] [id number] [address]- 3776 Aug, [facility] [address] [facility] [id number] [place] [id number] Aug, [facility] [place] [facility] [address] [id number] [address]- 6236 Aug, [facility] [address] [facility] [id number] [place] [id number] Aug, [facility] [place] [facility] [address] [id number] [address]- 7595 Aug, [facility] [place] [facility] [address] [id number] [address]- 1218 Jul, [facility] [address] [facility] [id number], [place] [id number] Jun, [facility] [place] [facility] [address] [facility] [address] [id number] [address]- 1989 Jun, [facility] [place] [facility] [address] [facility] [address] [id number] [address]- 9771 Jun, [facility] [place] [facility] [address] [facility] [address] [id number] [address]- 4146 Jun, [facility] [address] [facility] [id number], [place] 747639140 Jun, [facility] [place] [facility] [address] [id number] [place] [address]- 0656 Jun, [facility] [place] [facility] [address] [id number] [place] [address]- 8966 Jun, [facility] [address] [facility] [id number], [place] 196039676 Jun, [facility] [place] [facility] [address] [id number] [place] [address]- 5796 Jun, [facility] [place] [facility] [address] [id number] [place] [address]- 9976 May, [facility] [address] [facility] [id number], [place] [id number] May, [facility] [place] [facility] [address] [facility] [address] [id number] [place] [address]- 6116 May, [facility] [place] [facility] [address] [id number] [address]- 0739 May, [facility] [place] [facility] [address] [facility] [address] [id number] [address]- 6756 May, [facility] [place] [facility] [address] [facility] [address] [id number] [address]- 4686 May, [facility] [address] [facility] [id number], [place] 082149288 May, [facility] [place] [facility] [address] [facility] [address] [id number] [address]- 2546 May, [facility] [address] [facility] [id number], [place] [id number] May, [facility] [place] [facility] [address] [id number] [place] [address]- 2546 May, [facility] [place] [address] [facility] [id number], [place] [id number] Apr, [facility] [place] [facility] [address] [facility] [address] [id number] [address]- 2436 Apr, [facility] [place] [facility] [address] [facility] [address] [id number] [address]- 2799 Apr, [facility] [address] [facility] [id number], [place] 988827355 Apr, [facility] [place] [facility] [address] [facility] [address] [id number] [address]- 5872 Apr, [facility] [address] [facility] [address] [id number] [address]- 9801 Apr, [facility] [address] [facility] [id number], [place] 935300255 Apr, [facility] [place] [facility] [address] [facility] [address] [id number] [address]- 5922 Apr, [facility] [place] [facility] [address] [facility] [address] [id number] [address]- 5242 Apr, [facility] [place] [facility] [address] [facility] [address] [id number] [address]- 6383 Apr, [facility] [address] [facility] [id number], [place] 834812528 Apr, [facility] [place] [facility] [address] [facility] [address] [id number] [address]- 4357 Apr, [facility] [address] [id number], [place] 518259574 Apr, [facility] [place] [facility] [address] [facility] [address] [id number] [address]- 7671 Apr, [facility] [address] [facility] [id number], [place] [id number] Apr, [facility] [place] [facility] [address] [facility] [address] [id number] [address]- 4505 Apr, [facility] [place] [facility] [address] [facility] [address] [id number] [address]- 5417 Apr, [facility] [place] [facility] [address] [facility] [address] [id number] [address]- 7696 Apr, [facility] [address] [facility] [id number], [place] 937542816 Apr, [facility] [place] [facility] [address] [facility] [address] [id number] [address]- 0462 Mar, [facility] [address] [facility] [address] [id number] [address]- 7849 Mar, [facility] [place] [address] [id number] [place] [id number] Mar, [facility] [address] [id number] [place] [id number] Mar, [facility] [address] [id number] [place] [id number] Mar, [facility] [address] [id number] [place] 969520168 Feb, [facility] [address] [id number] [place] [id number] Feb, [facility] [address] [id number] [place] [id number] Feb, [facility] [place] [address] [facility] [address] [id number] [place]- 6873 Feb, [facility] [place] [address] [id number] [place] [id number] Feb, [facility] [address] [id number] [place] [id number] Feb, [facility] [address] [id number] [place] [id number] Feb, [facility] [address] [id number] [place] [id number] Feb, [facility] [address] [id number] [place] [id number] Feb, [facility] [address] [id number] [place] [id number] Jan, [facility] [address] [id number] [place] 928438753 Jan, [facility] [address] [id number] [place] [id number] Jan, [facility] [address] [id number] [place] [id number] Jan, [facility] [address] [id number] [place] [id number] Jan, [facility] [address] [facility] [address] [id number] [address]- 0324 Jan, [facility] [place] [address] [id number] [place] 626888915 Jan, [facility] [place] [address] [id number] [place] 705390145 Jan, [facility] [place] [address] [id number] [place] Dec, [facility] [place] [address] [id number] [place] [id number] November, [facility] [place] [address] [id number] [place] [id number] November, [facility] [address] [id number] [place] 915552510 November, [facility] [place] [address] [id number] [place] 358977555 November, [facility] [address] [id number] [place] 676317387 November, [facility] [address] [id number] [place] [id number] November, [facility] [address] [id number] [place] [id number] Jul, [facility] [place] [address] [id number] [place] 030622989 Jul, [facility] [place] [address] [id number] [place] [id number] Jul, [facility] [place] [address] [id number] [place] [id number] Jun, [facility] [address] [facility] [address] [id number] [address]- 4703 Jun, [facility] [place] [address] [id number] [place] [id number] May, [facility] [address]00565100[place] [address]- 8814 May, [facility] [place] [address] [id number], [place] [id number] May, [facility] [place] [facility] [address] [facility] [address] [id number] [address]- 9506 May, [facility] [place] [address] [id number][place] [id number] May, [facility] [address] [facility] [address] [id number] [address] May, [facility] [place] [address] [id number][place] [id number] Apr, [facility] [address] [facility] [id number] [place] [address] Apr, [facility] [place] [facility] [address] [facility] [address] [id number] [address] Apr, [facility] [place] [address] [id number][place] [id number] Apr, [facility] [place] [address] [id number][place] [id number] Apr, [facility] [address] [address] Apr, [facility] [place] [facility] [address] [facility] [address] [id number] [address] Apr, [facility] [place] [address] [id number][place] [id number] Apr, [facility] [place] [facility] [address] [facility] [address] [id number] [address] Apr, [facility] [place] [address] [id number][place] [id number] Apr, [facility] [place] [address] [id number][place] [id number] Apr, [facility] [place] [address] [id number][place] [id number] Mar, [facility] [place] [address] [id number][place] [id number] Feb, [facility] [place] [address] [id number] [place] [id number] Jan, [facility] [place] [address] [id number] [place] [id number] Dec, [facility] [place] [address] [id number] [place] [id number] Dec, [facility] [place] [address] [id number] [place] [id number] Dec, [facility] [place] [address] [id number] [place] [id number] Dec, [facility] [place] [address] [id number] [place] [id number] Dec, [facility] [place] [address] [id number] [place] [id number] November, [facility] [place] [address] [id number] [place] [id number] November, [facility] [place] [address] [id number] [place] [id number] November, [facility] [place] [address] [facility] [address] [id number] [address] November, [facility] [place] [address] [id number] [place] [id number] November, [facility] [place] [address] [id number] [place] [id number] November, [facility] [place] [address] [id number] [place] [id number] Oct, [facility] [place] [address] [id number] [place] [id number] Oct, [facility] [place] [address] [id number] [place] [id number] Oct, [facility] [place] [address] [id number] [place] [id number] Oct, [facility] [place] [address] [id number] [place] [id number] Oct, [facility] [place] [address] [id number] [place] [id number] Oct, [facility] [place] [address] [id number], [place] [id number] Sep, [facility] [place] [address] [id number] [place] [id number] Aug, [facility] [place] [address] [id number] [place] [id number] Aug, [facility] [place] [address] [id number] [place] [id number] Jul, [facility] [place] [facility] [address] [facility] [address] [id number] [address] Jun, [facility] [place] [facility] [address] [id number] [address] Jun, [facility] [place] [facility] [address] [facility] [address] [id number] [address] Jun, [facility] [place] [facility] [address]00565100[place] [address] Jun, [facility] [place] [facility] [address] [id number] [address] May, [facility] [place] [facility] [address] [id number] [address] May, [facility] [place] [facility] [address]00565100[place] [address] Apr, [facility] [place] [facility] [address]65100[place] [address] Apr, [facility] [place] [facility] [address] [id number] [address] Apr, [facility] [place] [facility] [address] [facility] [address] [id number] [address] Feb, [facility] [place] [facility] [address] [facility] [address] [id number] [address] 15 Aug, 2010 [facility] [place] [facility] [address] [facility] [address] [id number] [address] Jul, [facility] [place] [facility] [address] [facility] [address] [id number] [address] 30 Jun, 2010 [facility] [address] [id number] [place] [address] May, [facility] [place] [facility] [address] [id number] [place] [address] May, [facility] [address] [facility] [address] [id number] [place] [address] May, [facility] [place] [facility] [address] [id number] [place] [address] May, [facility] [address] [id number] [place] [address], [place] [address] May, [facility] [place] [facility] [address] [facility] [address] [id number] [place] [id number] Aug, [facility] [address] [address] [id number] [address] Jun, [facility] [address] [id number] [address] Jun, [facility] [address] [address] [id number] [address] Jun, [facility] [address] [address] [id number] [address] 24 May, 2009 [facility] [address] [address] [id number] [place] [address] 28 Apr, 2009 [facility] [address] [id number] [place] [address] 27 Apr, 2009 [facility] [address] [id number] [address] 15 Apr, 2009 [facility] [address] [address] [id number] [place] [address] 20 Jan, 2009 [facility] [address] [id number] [place] [address] 13 Oct, 2008 [facility] [address] [address] [id number] [place] [address] May, [facility] [address] [address] [address] [id number] [place] [address] May, IMMUNIZATIONS No Known Immunizations SOCIAL HISTORY Never Assessed REASON FOR VISIT Refill request PLAN OF CARE VITAL SIGNS MEDICATIONS Medication Instructions Dosage Frequency Start Date End Date Duration Status Savella 100 mg Orally Twice a day 1 tablet 12h 28 days Active RESULTS No Results PROCEDURES [...] Dialysis Ruthy Reveles 2012 -Dr. Simon now [facility] Medical History Colonoscopy (polyps 2 ) [...]
--- OUTSIDE RECORDS SUMMARY | 2018-01-17 09:57 | XMS REPORT ---
Author Author CHELSY VILLAFANA [facility] Address [address] [place] [address] Care Team Providers Care Barkeep Name Role Phone CHELSY VILLAFANA Unavailable PROBLEMS Type Condition ICD9-CM Code ADN60-LD Code Onset Dates Condition Status SNOMED Code Problem Chronic kidney disease, stage 4 (severe) N18.4 Active 850940048 Problem Psoriasis of scalp L40.9 Active 586945596 Problem Type 2 diabetes mellitus with hyperglycemia E11.65 Active 504311464547020 Problem Fibromyalgia M79.7 Active 358916984 Problem History of DVT (deep vein thrombosis) Z86.718 Active 745334862 Problem Carpal tunnel syndrome, bilateral G56.03 Active 28558445788649470 Problem Type 2 diabetes mellitus with other diabetic kidney complication E11.29 Active 995314489 Problem Anemia in other chronic diseases classified elsewhere D63.8 Active 834037910 Problem senior care 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 Active 409650064 Problem Paresthesia of right upper extremity R20.2 Active 56143713 Problem Bilateral lower extremity edema R60.0 Active 996983803 Problem Supplemental oxygen dependent Z99.81 Active 895744731517 Problem Sleep apnea in adult G47.33 Active 52441757 Problem Chronic pain syndrome G89.4 Active 347767988 Problem 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 Active 982443857 Problem Essential hypertension I10 Active 38121220 Problem Gastroesophageal reflux disease without esophagitis K21.9 Active 432665216 Problem Chronic obstructive pulmonary disease, unspecified COPD type J44.9 Active 54999315 Problem 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 Active 666032862324913 Problem Primary insomnia F51.01 Active 3056903 Problem Oxygen desaturation during sleep G47.34 Active 493144011 Problem Right carpal tunnel syndrome G56.01 Active 783062438758933 Problem Diabetic polyneuropathy associated with type 2 diabetes mellitus E11.42 Active 74088954 Problem Depression, unspecified depression type F32.9 Active 26848284 ALLERGIES No Information ENCOUNTERS Encounter Location Date Diagnosis [id number] [id number] Dec, [id number] [place] [id number] Dec, [address] [id number] Dec, Essential hypertension I10 ; Type 2 diabetes mellitus with other diabetic kidney complication E11.29 ; Depression, unspecified depression type F32.9 ; Supplemental oxygen dependent Z99.81 ; Chronic pain syndrome G89.4 ; Fibromyalgia M79.7 ; Carpal tunnel syndrome, bilateral G56.03 and Chronic kidney disease, stage 4 (severe) N18.4 [facility] [id number] [place] [address] 33826- 3739 Dec, Essential hypertension I10 [facility] [address] [address]- 3319 November, Type 2 diabetes mellitus with other diabetic kidney complication E11.29 [facility] [id number] [place] [address] 22373- 8985 November, Chronic pain syndrome G89.4 [facility] [id number] [place] [address] 82514- 8068 November, [facility] [id number] [place] [address] 91170- 5272 November, [facility] [id number] [place] [address] 21462- 1483 November, [facility] [id number] [place] [address] 67125- 8954 Oct, Type 2 diabetes mellitus with other diabetic kidney complication E11.29 [facility] [id number] [place] [address] 28357- 6592 Oct, Primary insomnia F51.01 [id number] [place] [address] [id number] Oct, Bilateral lower extremity edema R60.0 [facility] [id number] [place] [address] 11000- 7086 Oct, [place] [id number] [place] [address] 32171- 4588 Sep, Type 2 diabetes mellitus with other diabetic kidney complication E11.29 and Chronic obstructive pulmonary disease, unspecified COPD type J44.9 [facility] [id number] [place] [address] 44542- 5062 15 Aug, 2017 Type 2 diabetes mellitus with other diabetic kidney complication E11.29 [facility] [id number] [place] [address] 32553- 4891 12 Aug, 2017 Gastroesophageal reflux disease without esophagitis K21.9 ; senior care current use of anticoagulant Z79.01 ; Chronic pain syndrome G89.4 ; Essential hypertension I10 and Type 2 diabetes mellitus with other diabetic kidney complication E11.29 [facility] [id number] [place] [address] 10030- 2190 08 Aug, 2017 Chronic pain syndrome G89.4 [facility] [id number] [place] [address] 54243- 2023 Aug, Type 2 diabetes mellitus with other diabetic kidney complication E11.29 [facility] [id number] [place] [address] 56449- 8318 Jul, Diabetic polyneuropathy associated with type 2 diabetes mellitus E11.42 [facility] [id number] [place] [address] 18445- 1581 Jul, Primary insomnia F51.01 [facility] [id number] [place] [address] 42297- 4508 Jul, [facility] [id number] [place] [address] 93801- 0698 Jul, Type 2 diabetes mellitus with other diabetic kidney complication E11.29 and Chronic obstructive pulmonary disease, unspecified COPD type J44.9 [facility] [id number] [place] [address] 87319- 1055 Jul, Type 2 diabetes mellitus with other diabetic kidney complication E11.29 [place] [address] [place] [address] 94001- 2162 Jun, Type 2 diabetes mellitus with other diabetic kidney complication E11.29 [facility] [address] [address]- 5917 Jun, [facility] [id number] [place] [address] 20556- 0748 Jun, Chronic obstructive pulmonary disease, unspecified COPD type J44.9 [id number] [place] [address] 99417- 6977 May, Type 2 diabetes mellitus with other diabetic kidney complication E11.29 [facility] [address] [place] [address] 89305- 9286 May, 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 and Essential hypertension I10 [place] [address] [place] [address] 27299- 1444 May, Anemia in other chronic diseases classified elsewhere D63.8 ; Chronic obstructive pulmonary disease, unspecified COPD type J44.9 ; Oxygen desaturation during sleep G47.34 ; Sleep apnea in adult G47.33 and Supplemental oxygen dependent Z99.81 [address] [address]- 8893 May, Type 2 diabetes mellitus with other diabetic kidney complication E11.29 ; Essential hypertension I10 ; Chronic pain syndrome G89.4 ; BMI 40.0-44.9, adult Z68.41 ; Gastroesophageal reflux disease without esophagitis K21.9 ; 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 ; 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 ; Diabetic polyneuropathy associated with type 2 diabetes mellitus E11.42 ; Edema of both legs R60.0 and Supplemental oxygen dependent Z99.81 [place] [address] [address]- 7464 May, [facility] [id number] [place] [address] 16391- 9255 May, Essential hypertension I10 and Gastroesophageal reflux disease without esophagitis K21.9 [facility] [id number] [place] [address] 29695- 5171 May, [facility] [id number] [place] [address] 63039- 2830 May, Type 2 diabetes mellitus with other diabetic kidney complication E11.29 and senior care current use of anticoagulant Z79.01 [facility] [id number] [place] [address] 37939- 7733 Apr, Chronic pain syndrome G89.4 and Essential hypertension I10 [facility] [id number] [place] [address] 96933- 9570 Apr, Type 2 diabetes mellitus with other diabetic kidney complication E11.29 [place] [facility] [address] 84561- 4277 Apr, Type 2 diabetes mellitus with other diabetic kidney complication E11.29 [facility] [id number] [place] [address] 64085- 3229 Apr, Essential hypertension I10 [facility] [id number] [place] [address] 09866- 8351 Apr, Gastroesophageal reflux disease without esophagitis K21.9 [facility] [id number] [place] [address] 58882- 9636 Apr, Type 2 diabetes mellitus with other diabetic kidney complication E11.29 [facility] [id number] [place] [address] 63681- 0646 Apr, Type 2 diabetes mellitus with other diabetic kidney complication E11.29 and senior care current use of anticoagulant Z79.01 [facility] [id number] [place] [address] 61469- 3956 Mar, Encounter for immunization Z23 and Preoperative examination Z01.818 [place] [address] 51770- 4475 Mar, [place] [address] [place] [address] 65151- 7387 Mar, Type 2 diabetes mellitus with other diabetic kidney complication E11.29 [facility] [id number] [place] [address] 29196- 0817 Mar, Type 2 diabetes mellitus with other diabetic kidney complication E11.29 [facility] [id number] [place] [address] 32766- 9041 Mar, Gastroesophageal reflux disease without esophagitis K21.9 [facility] [id number] [place] [address] 43823- 6693 Mar, Essential hypertension I10 [facility] [id number] [place] [address] 21286- 1236 Feb, 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 [place] [facility] [id number] [place] [address] 42984- 0232 Feb, Type 2 diabetes mellitus with other diabetic kidney complication E11.29 [facility] [id number] [place] [address] 69146- 6563 Feb, Type 2 diabetes mellitus with other diabetic kidney complication E11.29 [facility] [id number] [place] [address] 27697- 3649 Feb, Type 2 diabetes mellitus with other diabetic kidney complication E11.29 [facility] [id number] [place] [address] 51647- 3144 Feb, Gastroesophageal reflux disease without esophagitis K21.9 [facility] [id number] [place] [address] 49325- 0101 Feb, Type 2 diabetes mellitus with other diabetic kidney complication E11.29 [facility] [id number] [place] [address] 04681- 8445 Feb, 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 [place] [id number] [place] [address] 77176- 2552 Jan, 2017 Type 2 diabetes mellitus with other diabetic kidney complication E11.29 [facility] [address] [address] 8593 Jan, 2017 Type 2 diabetes mellitus with other diabetic kidney complication E11.29 [facility] [id number] [address]- 1405 Jan, Chronic pain syndrome G89.4 [facility] [address] [facility] [id number] [address]- 7093 Jan, [facility] [address] [facility] [id number] [address]- 7421 Jan, [facility] [id number] [address]- 3305 Jan, [facility] [id number] [address]- 2158 Jan, [facility] [address] [address]- 2454 Jan, Primary insomnia F51.01 ; Type 2 diabetes mellitus with other diabetic kidney complication E11.29 ; Chronic pain syndrome G89.4 and Essential hypertension I10 [facility] [id number] [address]- 4587 Jan, Primary insomnia F51.01 [facility] [address] [address]- 0276 Jan, Type 2 diabetes mellitus with other diabetic kidney complication E11.29 [facility] [address] [facility] [id number] [address]- 9090 Jan, [facility] [address] [address]- 2848 Jan, Chronic obstructive pulmonary disease, unspecified COPD type J44.9 [facility] [id number] [address]- 1664 Jan, Essential hypertension I10 ; Type 2 [...] associated with type 2 diabetes mellitus E11.42 [facility] [id number] [place] [address] 13362- 6472 Jan, Gastroesophageal reflux disease without esophagitis K21.9 [facility] [id number] [place] [address] 74954- 7712 Dec, [facility] [id number] [place] [address] 10030- 1971 Dec, [facility] [id number] [place] [address] 62512- 3280 Dec, senior care current use of anticoagulant Z79.01 ; Chronic pain syndrome G89.4 and Essential hypertension I10 [facility] [id number] [place] [address] 09859- 7511 Dec, [facility] [id number] [place] [address] 21337- 3787 Dec, Type 2 diabetes mellitus with other diabetic kidney complication E11.29 [facility] [id number] [address]- 2167 Dec, [facility] [id number] [place] [address] 18186- 4732 Dec, Gastroesophageal reflux disease without esophagitis K21.9 [facility] [id number] [address]- 4425 November, Type 2 diabetes mellitus with other diabetic kidney complication E11.29 [facility] [id number] [address]- 5310 November, [facility] [id number] [place] [address] 18759- 3963 November, Type 2 diabetes mellitus with other diabetic kidney complication E11.29 [facility] [address] [address]- 8290 November, [facility] [id number] [place] [address] 23576- 8805 November, Type 2 diabetes mellitus with other diabetic kidney complication E11.29 [facility] [id number] [place] [address] 24971- 9028 November, [facility] [id number] [address]- 8600 Oct, Essential hypertension I10 [facility] [id number] [place] [address] 05461- 1151 Oct, Psoriasis of scalp L40.9 [facility] [id number] [place] [address] 11202- 4346 Oct, Essential hypertension I10 and Chronic pain syndrome G89.4 [facility] [id number] [address]- 5841 Oct, [facility] [id number] [place] [address] 44424- 7577 Sep, Type 2 diabetes mellitus with other diabetic kidney complication E11.29 [facility] [address] [address]- 1208 Sep, [facility] [address] [address]- 5253 Sep, Type 2 diabetes mellitus with other diabetic kidney complication E11.29 [facility] [address] [address]- 0599 Sep, Type 2 diabetes mellitus with other diabetic kidney complication E11.29 [facility] [address] [address]- 8581 Sep, Type 2 diabetes mellitus with other diabetic kidney complication E11.29 ; Chronic kidney disease, stage 4 (severe) N18.4 ; Chronic obstructive pulmonary disease, unspecified COPD type J44.9 ; Iron deficiency anemia due to chronic blood loss D50.0 ; 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 ; Gastroesophageal reflux disease without esophagitis K21.9 ; Essential hypertension I10 ; Primary insomnia F51.01 ; Depression, unspecified depression type F32.9 ; Chronic pain syndrome G89.4 ; Wrist pain, right M25.531 ; Paresthesia of right upper extremity R20.2 and Psoriasis of scalp L40.9 [place] [address] 83077- 6696 Sep, [place] [address] 89047- 4890 Aug, Essential hypertension I10 [address] 70614- 2023 Aug, History of DVT (deep vein thrombosis) Z86.[address] 29600- 4848 Aug, [place] [id number] [place] [address] 81476- 0987 Jul, [address] 61540- 2900 Jul, [place] [id number] [place] [address] 25066- 5416 Jul, senior care current use of anticoagulant Z79.01 ; Chronic pain syndrome G89.4 and Chronic kidney disease, stage 4 (severe) N18.4 [place] [id number] [place] [address] 41280- 9458 Jul, [address] 93354- 9741 Jul, [id number] [place] [address] 24738- 3850 Jul, [address] 25113- 9480 Jul, [place] [address] [address]- 2439 Jul, [address] [place] [address] 19287- 1790 Jul, Type 2 diabetes mellitus with other diabetic kidney complication E11.29 [address] [place] [address] 99209- 8438 Jul, History of DVT (deep vein thrombosis) Z86.718 [place] [id number] [place] [address] 02730- 2420 Jun, [id number] [place] [address] 45408- 2057 Jun, History of DVT (deep vein thrombosis) Z86.718 [id number] [place] [address] 57141- 6725 15 Jun, 2016 Post traumatic stress disorder (PTSD) F43.10 [address] [place] [address] 39162- 6867 07 Jun, 2016 Type 2 diabetes mellitus [...] M79.641 and Right wrist pain M25.531 [address] [place] [address] 59278- 6801 May, [facility] [address] [facility] [id number] [place] [address]- 8763 May, [facility] [address] [facility] [id number] [place] [address], [place] [address] 2547 May, [facility] [id number] [place] [address]- 2687 May, [facility] [address] [facility] [id number] [place] [address], [place] [address]- 6677 May, Anemia in other chronic diseases classified elsewhere D63.8 [facility] [address] [facility] [id number] [place] [address], [place] [address]- 4285 May, [facility] [id number] [place] [address], [place] [address]- 7544 Apr, [facility] [id number] [place] [address] 96296- 7141 27 Mar, 2016 Dermatofibroma D23.9 [facility] [id number] [place] [address]- 7568 20 Mar, 2016 [facility] [id number] [place] [address], [place] [address]- 4744 14 Mar, 2016 Chronic pain syndrome G89.4 [facility] [address] [place] [address]- 8430 09 Mar, 2015 [facility] [id number] [address] 2542 07 Mar, 2015 [facility] [id number] [place] [address]- 2545 Mar, [facility] [id number] [place] [address], [place] [address]- 2542 Feb, [facility] [address] [facility] [id number] [place] [address]- 8846 Feb, [facility] [id number] [place] [address] 17286- 5498 Feb, [facility] [id number] [address]- 1216 Feb, [facility] [address] [address]- 4272 Feb, [facility] [address] [address]- 8419 Feb, [place] [id number] [place] [address] 36041- 2170 Feb, Type 2 diabetes mellitus with other diabetic kidney complication E11.29 ; Diabetic polyneuropathy associated with type 2 diabetes mellitus E11.42 ; Iron deficiency anemia due to chronic blood loss D50.0 ; Chronic obstructive pulmonary disease, unspecified COPD type J44.9 ; 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 ; History of DVT (deep vein thrombosis) Z86.718 ; Chronic pain syndrome G89.4 ; Oxygen desaturation during sleep G47.34 ; Sleep apnea in adult G47.33 ; Gastroesophageal reflux disease without esophagitis K21.9 ; Essential hypertension I10 ; Primary insomnia F51.01 ; Depression, unspecified depression type F32.9 and Renal failure, chronic, stage 4 (severe) N18.4 [place] [id number] [place] [address] 41900- 2041 Feb, Skin tags, multiple acquired L91.8 [address] [address]- 3035 Jan, [facility] [id number] [id number] Jan, Dental examination Z01.20 [place] [address] [address]- 9352 Jan, [place] [id number] [place] [address] 88822- 2359 Jan, Type 2 diabetes mellitus with other [...] Renal failure, chronic, stage 4 (severe) N18.4 [facility] [id number] [place] [address] 37191- 1469 Dec, Diabetes type 2, uncontrolled E11.[address] 37739- 6109 Dec, [address] 80876- 9525 Dec, Type 2 diabetes mellitus with other [...] F51.01 and Depression, unspecified depression type F32.9 [facility] [id number] [place] [address] [id number] Dec, Dental caries K02.9 [facility] [address] [id number] [place] [address] [id number] Dec, [facility] [id number] [place] [address] [id number] Dec, Dental examination Z01.20 [facility] [id number] [place] [address] [id number] November, Dental examination Z01.20 and Dental caries K02.9 [facility] [id number], [place] [id number] Oct, [facility] [id number] [place] [address] [id number] Oct, [facility] [address] [id number], [place] [id number] Sep, [facility] [address] [id number] [place] [address] [id number] Sep, [facility] [address] [id number] [place] [address] [id number] Sep, [facility] [id number] [place] [address] [id number] Sep, Other chronic pain 338.29 [facility] [id number] [place] [address] [id number] Aug, Diabetes type 2, uncontrolled E11.65 and Morbid obesity due to excess calories E66.01 [facility] [id number] [place] [address] [id number] Aug, Hair loss L65.9 [facility] [id number] [place] [address] [id number] Aug, [facility] [id number] [place] [address] [id number] Jul, [facility] [id number] [place] [address] [id number] Jul, [facility] [id number], [place] [id number] Jun, [facility] [id number] [place] [address] [id number] Jun, Hair loss L65.9 and Disorder of the skin and subcutaneous tissue, unspecified L98.9 [facility] [id number] [place] [address] [id number] May, Type 2 diabetes mellitus with other diabetic kidney complication E11.29 ; Type 2 diabetes mellitus with hyperglycemia E11.65 ; Morbid obesity due to excess calories E66.01 and Essential hypertension I10 [facility] [id number] [place] [address] [id number] May, Diabetes type 2, uncontrolled E11.65 ; Encounter for immunization Z23 and Morbid obesity due to excess calories E66.01 [id number] [place] [address] [id number] May, [facility] [id number] [place] [address]- 6308 Apr, [address] [address] [id number] [place] [address] [id number] Apr, Hyperglycemia R73.9 [address] [id number] [place] [address] [id number] Apr, [address] [id number] Apr, Depression F32.9 ; Encounter for immunization Z23 ; Hyperglycemia R73.9 and Anemia in other chronic diseases classified elsewhere D63.8 [facility] [id number] [place] [address] [id number] Mar, [address] [id number] [place] [address] [id number] Feb, Positive occult stool blood test 792.1 [id number] [place] [address] [id number] Feb, Depression 311 ; Other chronic pain 338.29 and Diabetes with renal manifestations, type II or unspecified type, not stated as uncontrolled 250.40 [facility] [id number] [address] Feb, Occult blood in stools 792.[id number] [place] [address] [id number] Feb, Anemia 285.9 ; Occult blood positive stool 792.1 ; Unspecified essential hypertension 401.9 and Other chronic pain 338.29 [address] [place] [address] [id number] Feb, [address] [id number] [place] [address] [id number] Feb, Anemia 285.9 [id number] [place] [address] [place] [id number] Feb, [facility] [id number], [place] [id number] Feb, [facility] [id number] [place] [address] [id number] Feb, Diabetes with renal manifestations, type II or unspecified type, not stated as uncontrolled 250.40 ; Other chronic pain 338.29 ; Unspecified essential hypertension 401.9 ; Anemia 285.9 and Depression 311 [facility] [place] [id number] [place] [address] [id number] Jan, [facility] [id number] [place] [address] [id number] Jan, Anemia 285.9 and Follow up V67.9 [facility] [place] [id number] [place] [address] [id number] Jan, [facility] [id number] [place] [address] [id number] Jan, [facility] [id number] [place] [address] [id number] Jan, [facility] [id number] [place] [address] [id number] Dec, [facility] [id number] [place] [address] 77[address]- 4276 Oct, [facility] [id number] [place] [address] 02098- 4555 Oct, [facility] [id number] [place] [address] 15801- 2546 Sep, [facility] [address] [id number][place] [id number] Sep, [facility] [id number] [place] [address] 48044- 0275 Sep, [facility] [place] [id number], [place] [id number] Aug, [facility] [id number] [place] [address] 79197- 4585 Aug, [facility] [place] [facility] [address] [id number] [address]- 9306 Aug, [facility] [place] [address] [id number] [place] [id number] Aug, [facility] [place] [facility] [address] [facility] [id number] [place] [address]- 3786 Aug, [facility] [place] [facility] [address] [facility] [id number] [place] [address]- 5666 Aug, [facility] [address] [id number], [place] [id number] Aug, [facility] [place] [facility] [address] [facility] [id number] [place] [address]- 9896 Aug, [facility] [place] [address] [facility] [id number][place] [id number] Jul, [facility] [place] [facility] [address]00565[address] [address]- 7236 Jul, [facility] [place] [facility] [address] [id number] [address]- 0623 Jul, [facility] [place] [address] [facility] [id number], [place] [id number] Jul, [facility] [place] [facility] [address]00565100[place] [address]- 3356 Jul, [facility] [place] [address] [facility] [id number], [place] [id number] Jul, [facility] [place] [facility] [address] [facility] [id number] [place] [address]- 6756 Jul, [facility] [address] [id number] [place] [id number] Jun, [facility] [address] [facility] [id number], [place] [id number] Jun, [facility] [place] [facility] [address] [id number] [address]- 7931 Jun, [facility] [place] [facility] [address] [facility] [id number] [place] [address]- 2651 Jun, [facility] [address] [id number] [place] [id number] Jun, [facility] [place] [facility] [address] [facility] [id number] [place] [address]- 8592 Jun, [facility] [address] [id number] [place] [id number] May, [facility] [place] [facility] [address] [facility] [id number] [place]- 1159 May, [facility] [place] [facility] [address] [facility] [id number] [place] [address]- 8682 May, [facility] [address] [id number], [place] [id number] Apr, [facility] [place] [facility] [address] [facility] [id number] [place]- 6326 Apr, [facility] [address] [id number], [place] [id number] Apr, [facility] [address] [facility] [id number], [place] [id number] Apr, [facility] [place] [facility] [address] [facility] [id number] [place]36[place]- 4338 Apr, [facility] [place] [facility] [address] [facility] [id number] [place] [address]- 6225 Apr, [facility] [address] [id number], [place] [id number] Mar, [facility] [place] [facility] [address] [facility] [id number] [place] 89812725- 7865 18 Mar, 2014 [facility] [address] [id number], [place] [id number] Mar, [facility] [place] [facility] [address] [facility] [id number] [place]- 7856 17 Mar, 2014 [facility] [address] [facility] [id number], [place] [id number] 16 Mar, 2014 [facility] [place] [facility] [address] [facility] [id number] [place] [address]- 9266 Mar, [facility] [address] [id number] [place] [id number] Mar, [facility] [place] [facility] [address] [facility] [id number] [place] [address]- 0626 Mar, [facility] [address] [id number] [place] [id number] Mar, [facility] [place] [facility] [address] [id number] [place] [address]- 9061 Mar, [facility] [address] [id number] [place] [id number] Feb, [facility] [place] [facility] [address] [facility] [id number] [place] [address]- 6866 Feb, [facility] [address] [id number] [place] [id number] Jan, [facility] [place] [facility] [address] [facility] [id number] [place] [address]- 5563 Jan, [facility] [address] [facility] [id number] [place] [id number] Jan, [facility] [place] [facility] [address] [facility] [id number] [place] [address]- 2614 Jan, [facility] [address] [id number] [place] [id number] Jan, [facility] [place] [facility] [address] [facility] [id number] [place] [address]- 2405 Jan, [facility] [place] [facility] [address] [facility] [id number] [place] [address]- 2794 Dec, [facility] [place] [facility] [address] [facility] [id number] [place] [address]- 7923 Dec, [facility] [address] [id number] [place] [id number] November, [facility] [place] [facility] [address] [facility] [id number] [place] [address]- 5105 November, [facility] [address] [id number] [place] [id number] November, [facility] [place] [facility] [address] [id number] [place] [address]- 0613 November, [facility] [address] [facility] [id number] [place] [id number] Oct, [facility] [place] [facility] [address] [facility] [id number] [place] [address]- 3401 Oct, [facility] [place] [facility] [address] [facility] [id number] [place] [address]- 4126 Oct, [facility] [place] [facility] [address] [facility] [id number] [place] [address]- 6827 Oct, [facility] [place] [facility] [address] [facility] [id number] [place] [address]- 7733 Oct, [facility] [place] [facility] [address] [facility] [id number] [place] [address]- 0482 Oct, [facility] [address] [facility] [id number], [place] [id number] Sep, [facility] [address] [facility] [id number], [place] 626136899 Sep, [facility] [place] [facility] [address] [facility] [id number] [place] [address]- 9453 Sep, [facility] [place] [facility] [address] [facility] [id number] [place] [address]- 8898 Sep, [facility] [address] [facility] [id number], [place] 583641240 Sep, [facility] [place] [facility] [address] [facility] [id number] [place] [address]- 0584 Sep, [facility] [place] [facility] [address] [facility] [id number] [place] [address]- 6386 Aug, [facility] [place] [facility] [address] [facility] [id number] [place] [address]- 8216 Aug, [facility] [address] [facility] [id number], [place] 819321601 Aug, [facility] [address] [id number] [place] [id number] Aug, [facility] [place] [facility] [address] [facility] [id number] [place] [address]- 1426 Aug, [facility] [address] [facility] [id number] [place] [id number] Aug, [facility] [place] [facility] [address] [facility] [id number] [place] [address]- 2476 Aug, [facility] [address] [facility] [id number] [place] [id number] Aug, [facility] [place] [facility] [address] [id number] [address]- 9326 Aug, [facility] [address] [facility] [id number] [place] [id number] Aug, [facility] [place] [facility] [address] [id number] [address]- 6506 Aug, [facility] [address] [facility] [id number] [place] [id number] Aug, [facility] [place] [facility] [address] [id number] [address]- 3466 Aug, [facility] [place] [facility] [address] [id number] [address]- 4936 Jul, [facility] [address] [facility] [id number], [place] [id number] Jun, [facility] [place] [facility] [address] [facility] [id number] [place] [address]- 8108 Jun, [facility] [place] [facility] [address] [facility] [id number] [place] [address]- 9458 Jun, [facility] [place] [facility] [address] [facility] [id number] [place] [address]- 3506 Jun, [facility] [address] [facility] [id number], [place] 006135998 Jun, [facility] [place] [facility] [address] [id number] [place] [address]- 5936 Jun, [facility] [place] [facility] [address] [id number] [place] [address]- 6916 Jun, [facility] [address] [facility] [id number], [place] [id number] Jun, [facility] [place] [facility] [address] [id number] [place] [address]- 2676 Jun, [facility] [place] [facility] [address] [id number] [place] [address]- 1759 May, [facility] [address] [facility] [id number], [place] 123619901 May, [facility] [place] [facility] [address] [facility] [id number] [place] [address]- 7546 May, [facility] [place] [facility] [address] [id number] [address]- 2373 May, [facility] [place] [facility] [address] [facility] [id number] [place] [address]- 1302 May, [facility] [place] [facility] [address] [facility] [id number] [place] [address]- 1406 May, [facility] [address] [facility] [id number], [place] 968156839 May, [facility] [place] [facility] [address] [facility] [id number] [place] [address]- 2546 May, [facility] [address] [facility] [id number], [place] [id number] May, [facility] [place] [facility] [address] [id number] [place] [address]- 2546 May, [facility] [place] [address] [facility] [id number], [place] [id number] Apr, [facility] [place] [facility] [address] [facility] [id number] [place] [address]- 3736 Apr, [facility] [place] [facility] [address] [facility] [id number] [place] [address]- 7861 Apr, [facility] [address] [facility] [id number], [place] [id number] Apr, [facility] [place] [facility] [address] [facility] [id number] [place] [address]- 6452 Apr, [facility] [address] [facility] [id number] [place] [address]- 5462 Apr, [facility] [address] [facility] [id number], [place] [id number] Apr, [facility] [place] [facility] [address] [facility] [id number] [place] [address]- 3156 Apr, [facility] [place] [facility] [address] [facility] [id number] [place] [address]- 8038 Apr, [facility] [place] [facility] [address] [facility] [id number] [place] [address]- 1172 Apr, [facility] [address] [facility] [id number], [place] 271287379 Apr, [facility] [place] [facility] [address] [facility] [id number] [place] [address]- 3655 Apr, [facility] [address] [id number], [place] 149837879 Apr, [facility] [place] [facility] [address] [facility] [id number] [place] [address]- 9212 Apr, [facility] [address] [facility] [id number], [place] 037286933 Apr, [facility] [place] [facility] [address] [facility] [id number] [place] [address]- 4902 Apr, [facility] [place] [facility] [address] [facility] [id number] [place] [address]- 7535 Apr, [facility] [place] [facility] [address] [facility] [id number] [place] [address]- 4136 Apr, [facility] [address] [facility] [id number], [place] 127298446 Apr, [facility] [place] [facility] [address] [facility] [id number] [place] [address]- 3580 Mar, [facility] [address] [facility] [id number] [place] [address]- 1373 Mar, [facility] [place] [address] [id number] [place] [id number] Mar, [facility] [address] [id number] [place] [id number] Mar, [facility] [address] [id number] [place] [id number] Mar, [facility] [address] [id number] [place] 171281625 Feb, [facility] [address] [id number] [place] [id number] Feb, [facility] [address] [id number] [place] [id number] Feb, [facility] [address] [facility] [id number] [place] 116[place]- 6460 Feb, [facility] [address] [id number] [place] [id number] Feb, [facility] [address] [id number] [place] [id number] Feb, [facility] [address] [id number] [place] [id number] Feb, [facility] [address] [id number] [place] 635741814 Feb, [facility] [address] [id number] [place] 963470151 Feb, [facility] [address] [id number] [place] 540913082 Jan, [facility] [address] [id number] [place] 907219931 Jan, [facility] [address] [id number] [place] 060421933 Jan, [facility] [address] [id number] [place] [id number] Jan, [facility] [address] [id number] [place] 034160584 Jan, [facility] [address] [facility] [id number] [address]- 9603 Jan, [facility] [place] [address] [id number] [place] [id number] Jan, [facility] [place] [address] [id number] [place] 498406812 Jan, [facility] [place] [address] [id number] [place] 4844725[address] Dec, [facility] [place] [address] [id number] [place] [id number] November, [facility] [place] [address] [id number] [place] 747677038 November, [facility] [place] [address] [id number] [place] [id number] November, [facility] [place] [address] [id number] [place] [id number] November, [facility] [place] [address] [id number] [place] [id number] November, [facility] [place] [address] [id number] [place] [id number] November, [facility] [place] [address] [id number] [place] [id number] Jul, [facility] [place] [address] [id number] [place] [id number] Jul, [facility] [place] [address] [id number] [place] [id number] Jul, [facility] [place] [address] [id number] [place] [id number] Jun, [facility] [address] [facility] [id number] [place] [address] Jun, [facility] [place] [address] [id number] [place] [id number] May, [facility] [id number] [address] May, [facility] [place] [address] [id number][place] [id number] May, [facility] [address] [facility] [id number] [place] [address] May, [facility] [place] [address] [id number][place] [id number] May, [facility] [address] [facility] [id number] [place] [address] May, [facility] [address] [id number][place] [id number] Apr, [facility] [address] [facility] [id number] [place] [address] Apr, [facility] [address] [facility] [id number] [place] [address] Apr, [facility] [place] [address] [id number], [place] [id number] Apr, [facility] [place] [address] [id number][place] [id number] Apr, [facility] [id number] [address] Apr, [facility] [address] [facility] [id number] [place] [address] Apr, [facility] [place] [address] [id number], [place] [id number] Apr, [facility] [address] [facility] [id number] [place] [address] Apr, [facility] [place] [address] [id number], [place] [id number] Apr, [facility] [place] [address] [id number], [place] [id number] Apr, [facility] [place] [address] [id number], [place] [id number] Mar, [facility] [place] [address] [id number], [place] [id number] Feb, [facility] [place] [address] [id number] [place] [id number] Jan, [facility] [place] [address] [id number] [place] [id number] Dec, [facility] [place] [address] [id number] [place] [id number] Dec, [facility] [place] [address] [id number] [place] [id number] Dec, [facility] [place] [address] [id number] [place] [id number] Dec, [facility] [place] [address] [id number] [place] [id number] Dec, [facility] [place] [address] [id number] [place] [id number] November, [facility] [place] [address] [id number] [place] [id number] November, [facility] [place] [address] [id number] [place] [id number] November, [facility] [address] [facility] [id number] [place] [address] November, [facility] [place] [address] [id number] [place] [id number] November, [facility] [place] [address] [id number] [place] [id number] November, [facility] [place] [address] [id number] [place] [id number] Oct, [facility] [place] [address] [id number] [place] [id number] Oct, [facility] [place] [address] [id number] [place] [id number] Oct, [facility] [place] [address] [id number] [place] [id number] Oct, [facility] [place] [address] [id number] [place] [id number] Oct, [facility] [place] [address] [id number] [place] [id number] Oct, [facility] [place] [address] [id number], [place] [id number] Sep, [facility] [place] [address] [id number] [place] [id number] Aug, [facility] [place] [address] [id number] [place] [id number] Aug, [facility] [place] [address] [id number] [place] [id number] Jul, [facility] [address] [facility] [id number] [place] [address] Jun, [facility] [address] [id number] [place] [address] Jun, [facility] [address] [facility] [id number] [place] [address] Jun, [facility] [id number] [address] Jun, [facility] [address] [place] [id number] [place], [place] [address] May, [facility] [place] [facility] [address] [id number] [address] May, [facility] [place] [facility] [id number] [address] Apr, [facility] [place] [facility] [id number] [address] Apr, [facility] [place] [facility] [address] [id number] [address] Apr, [facility] [place] [facility] [address] [facility] [id number] [place] [address] Feb, [facility] [place] [facility] [address] [facility] [id number] [place] [address] 15 Aug, 2010 [facility] [place] [facility] [address] [facility] [id number] [place] [address] Jul, [facility] [place] [facility] [address] [facility] [id number] [place] [address] 30 Jun, 2010 [facility] [address] [id number] [place] [address] May, [facility] [place] [facility] [address] [id number] [place] [address] May, [facility] [address] [facility] [id number] [place] [address] May, [facility] [place] [facility] [address] [id number] [place] [address] May, [facility] [id number] [place] [address], [place] [address] May, [facility] [place] [facility] [address] [facility] [id number] [place] [address] Aug, [facility] [address] [facility] [id number] [place] [address] Jun, [facility] [place] [facility] [address] [facility] [id number] [place] [address] Jun, [facility] [address] [facility] [id number] [place] [address] Jun, [facility] [place] [facility] [address] [facility] [id number] [place] [address] 24 May, 2009 [facility] [place] [facility] [address] [facility] [id number] [place] [address] 28 Apr, 2009 [facility] [place] [facility] [address] [facility] [id number] [place] [address] 27 Apr, 2009 [facility] [place] [facility] [address] [facility] [id number] [place] [address] 15 Apr, 2009 [facility] [place] [facility] [address] [facility] [id number] [place] [address] 20 Jan, 2009 [facility] [place] [facility] [address] [facility] [id number] [place] [address] 13 Oct, 2008 [facility] [place] [facility] [address] [facility] [id number] [place] [address] May, [facility] [address] [facility] [id number] [place] [address] May, IMMUNIZATIONS No Known Immunizations SOCIAL HISTORY Never Assessed REASON FOR VISIT refill request PLAN OF CARE VITAL SIGNS MEDICATIONS [...] Dialysis Ruthy Reveles 2012 -Dr. Simon now [facility] Medical History Colonoscopy (polyps 2 ) [...]
--- OUTSIDE RECORDS SUMMARY | 2018-01-17 09:58 | XMS REPORT ---
Author Author CHELSY VILLAFANA [facility] Address [address] [place] [address] Care Team Providers Care Legal Billing Analyst Name Role Phone CHELSY VILLAFANA Unavailable PROBLEMS Type Condition ICD9-CM Code VBV36-FI Code Onset Dates Condition Status SNOMED Code Problem Chronic kidney disease, stage 4 (severe) N18.4 Active 539742014 Problem Psoriasis of scalp L40.9 Active 019524072 Problem Type 2 diabetes mellitus with hyperglycemia E11.65 Active 068365441859296 Problem Fibromyalgia M79.7 Active 277897361 Problem History of DVT (deep vein thrombosis) Z86.718 Active 939070551 Problem Carpal tunnel syndrome, bilateral G56.03 Active 24133559867441382 Problem Type 2 diabetes mellitus with other diabetic kidney complication E11.29 Active 872381006 Problem Anemia in other chronic diseases classified elsewhere D63.8 Active 969506320 Problem detention 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 Active 730314996 Problem Paresthesia of right upper extremity R20.2 Active 23480638 Problem Bilateral lower extremity edema R60.0 Active 410713585 Problem Supplemental oxygen dependent Z99.81 Active 363465768610 Problem Sleep apnea in adult G47.33 Active 06786820 Problem Chronic pain syndrome G89.4 Active 638545862 Problem 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 Active 155187019 Problem Essential hypertension I10 Active 10752872 Problem Gastroesophageal reflux disease without esophagitis K21.9 Active 670872131 Problem Chronic obstructive pulmonary disease, unspecified COPD type J44.9 Active 58536915 Problem 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 Active 925979227536842 Problem Primary insomnia F51.01 Active 3052759 Problem Oxygen desaturation during sleep G47.34 Active 340033971 Problem Right carpal tunnel syndrome G56.01 Active 557961848095503 Problem Diabetic polyneuropathy associated with type 2 diabetes mellitus E11.42 Active 63383620 Problem Depression, unspecified depression type F32.9 Active 39337404 ALLERGIES No Information ENCOUNTERS Encounter Location Date Diagnosis [id number] [id number] Dec, [id number] [place] [id number] Dec, [address] [id number] Dec, Essential hypertension I10 ; Type 2 diabetes mellitus with other diabetic kidney complication E11.29 ; Depression, unspecified depression type F32.9 ; Supplemental oxygen dependent Z99.81 ; Chronic pain syndrome G89.4 ; Fibromyalgia M79.7 ; Carpal tunnel syndrome, bilateral G56.03 and Chronic kidney disease, stage 4 (severe) N18.4 [facility] [id number] [place] [address] 29121- 2385 Dec, Essential hypertension I10 [facility] [address] [address]- 0507 November, Type 2 diabetes mellitus with other diabetic kidney complication E11.29 [facility] [id number] [place] [address] 63487- 8239 November, Chronic pain syndrome G89.4 [facility] [id number] [place] [address] 83498- 7548 November, [facility] [id number] [place] [address] 89396- 8003 November, [facility] [id number] [place] [address] 19536- 5206 November, [facility] [id number] [place] [address] 05949- 2960 Oct, Type 2 diabetes mellitus with other diabetic kidney complication E11.29 [facility] [id number] [place] [address] 50124- 8086 Oct, Primary insomnia F51.01 [id number] [place] [address] [id number] Oct, Bilateral lower extremity edema R60.0 [facility] [id number] [place] [address] 46540- 2287 Oct, [facility] [id number] [place] [address] 13725- 4316 Sep, Type 2 diabetes mellitus with other diabetic kidney complication E11.29 and Chronic obstructive pulmonary disease, unspecified COPD type J44.9 [facility] [id number] [place] [address] 00807- 3184 15 Aug, 2017 Type 2 diabetes mellitus with other diabetic kidney complication E11.29 [facility] [id number] [place] [address] 69966- 6441 12 Aug, 2017 Gastroesophageal reflux disease without esophagitis K21.9 ; detention current use of anticoagulant Z79.01 ; Chronic pain syndrome G89.4 ; Essential hypertension I10 and Type 2 diabetes mellitus with other diabetic kidney complication E11.29 [facility] [id number] [place] [address] 79166- 5800 08 Aug, 2017 Chronic pain syndrome G89.4 [facility] [id number] [place] [address] 11273- 6525 Aug, Type 2 diabetes mellitus with other diabetic kidney complication E11.29 [facility] [id number] [place] [address] 70574- 4980 Jul, Diabetic polyneuropathy associated with type 2 diabetes mellitus E11.42 [facility] [id number] [place] [address] 68556- 4728 Jul, Primary insomnia F51.01 [facility] [id number] [place] [address] 96963- 1490 Jul, [facility] [id number] [place] [address] 65646- 0476 Jul, Type 2 diabetes mellitus with other diabetic kidney complication E11.29 and Chronic obstructive pulmonary disease, unspecified COPD type J44.9 [facility] [id number] [place] [address] 41314- 9309 Jul, Type 2 diabetes mellitus with other diabetic kidney complication E11.29 [facility] [address] [place] [address] 58649- 2447 Jun, Type 2 diabetes mellitus with other diabetic kidney complication E11.29 [facility] [address] [address]- 1714 Jun, [facility] [id number] [place] [address] 64347- 2402 Jun, Chronic obstructive pulmonary disease, unspecified COPD type J44.9 [address] [id number] [place] [address] 54191- 8030 May, Type 2 diabetes mellitus with other diabetic kidney complication E11.29 [facility] [address] [place] [address] 01645- 9400 May, 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 and Essential hypertension I10 [place] [address] [place] [address] 78398- 4315 May, Anemia in other chronic diseases classified elsewhere D63.8 ; Chronic obstructive pulmonary disease, unspecified COPD type J44.9 ; Oxygen desaturation during sleep G47.34 ; Sleep apnea in adult G47.33 and Supplemental oxygen dependent Z99.81 [address] [address]- 9853 May, Type 2 diabetes mellitus with other diabetic kidney complication E11.29 ; Essential hypertension I10 ; Chronic pain syndrome G89.4 ; BMI 40.0-44.9, adult Z68.41 ; Gastroesophageal reflux disease without esophagitis K21.9 ; 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 ; 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 ; Diabetic polyneuropathy associated with type 2 diabetes mellitus E11.42 ; Edema of both legs R60.0 and Supplemental oxygen dependent Z99.81 [place] [address] [address]- 1423 May, [facility] [id number] [place] [address] 18392- 1975 May, Essential hypertension I10 and Gastroesophageal reflux disease without esophagitis K21.9 [facility] [id number] [place] [address] 84996- 3235 May, [place] [id number] [place] [address] 41263- 4892 May, Type 2 diabetes mellitus with other diabetic kidney complication E11.29 and detention current use of anticoagulant Z79.01 [facility] [id number] [place] [address] 74464- 9389 Apr, Chronic pain syndrome G89.4 and Essential hypertension I10 [facility] [id number] [place] [address] 25329- 6256 Apr, Type 2 diabetes mellitus with other diabetic kidney complication E11.29 [facility] [address] 80779- 7799 Apr, Type 2 diabetes mellitus with other diabetic kidney complication E11.29 [facility] [id number] [place] [address] 90371- 5332 Apr, Essential hypertension I10 [facility] [id number] [place] [address] 98948- 4170 Apr, Gastroesophageal reflux disease without esophagitis K21.9 [facility] [id number] [place] [address] 60818- 4650 Apr, Type 2 diabetes mellitus with other diabetic kidney complication E11.29 [facility] [id number] [place] [address] 96545- 0481 Apr, Type 2 diabetes mellitus with other diabetic kidney complication E11.29 and detention current use of anticoagulant Z79.01 [facility] [id number] [place] [address] 52160- 4220 Mar, Encounter for immunization Z23 and Preoperative examination Z01.818 [place] [address] 70046- 3019 Mar, [place] [address] [place] [address] 52658- 7900 Mar, Type 2 diabetes mellitus with other diabetic kidney complication E11.29 [facility] [id number] [place] [address] 96500- 3156 Mar, Type 2 diabetes mellitus with other diabetic kidney complication E11.29 [facility] [id number] [place] [address] 66796- 1555 Mar, Gastroesophageal reflux disease without esophagitis K21.9 [facility] [id number] [place] [address] 00745- 4187 Mar, Essential hypertension I10 [facility] [id number] [place] [address] 83942- 6011 Feb, 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 [facility] [id number] [place] [address] 18821- 5036 Feb, Type 2 diabetes mellitus with other diabetic kidney complication E11.29 [facility] [id number] [place] [address] 04449- 4903 Feb, Type 2 diabetes mellitus with other diabetic kidney complication E11.29 [facility] [id number] [place] [address] 39196- 2761 Feb, Type 2 diabetes mellitus with other diabetic kidney complication E11.29 [facility] [id number] [place] [address] 83823- 1620 Feb, Gastroesophageal reflux disease without esophagitis K21.9 [facility] [id number] [place] [address] 98277- 4023 Feb, Type 2 diabetes mellitus with other diabetic kidney complication E11.29 [facility] [id number] [place] [address] 64250- 1796 Feb, 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 [facility] [place] [id number] [place] [address] 24765- 1069 Jan, 2017 Type 2 diabetes mellitus with other diabetic kidney complication E11.29 [facility] [address] [address]17 Jan, 2017 Type 2 diabetes mellitus with other diabetic kidney complication E11.29 [facility] [id number] [address]- 8418 Jan, Chronic pain syndrome G89.4 [facility] [address] [facility] [id number] [address]- 6790 Jan, [facility] [address] [facility] [id number] [address]- 0025 Jan, [facility] [id number] [address]- 0898 Jan, [facility] [id number] [address]- 5465 Jan, [facility] [address] [address]- 6445 Jan, Primary insomnia F51.01 ; Type 2 diabetes mellitus with other diabetic kidney complication E11.29 ; Chronic pain syndrome G89.4 and Essential hypertension I10 [facility] [id number] [address]- 1260 Jan, Primary insomnia F51.01 [facility] [address] [address]- 3645 Jan, Type 2 diabetes mellitus with other diabetic kidney complication E11.29 [facility] [address] [facility] [id number] [address]- 6269 Jan, [facility] [address] [address]- 3433 Jan, Chronic obstructive pulmonary disease, unspecified COPD type J44.9 [facility] [id number] [address]- 0065 Jan, Essential hypertension I10 ; Type 2 diabetes mellitus with other diabetic kidney complication E11.29 ; Chronic obstructive pulmonary disease, unspecified COPD type J44.9 ; Chronic kidney disease, stage 4 (severe) N18.4 ; Right carpal tunnel syndrome G56.01 ; 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 ; detention (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 and Diabetic polyneuropathy associated with type 2 diabetes mellitus E11.42 [facility] [id number] [place] [address] 03589- 6630 Jan, Gastroesophageal reflux disease without esophagitis K21.9 [facility] [id number] [place] [address] 20236- 6045 Dec, [facility] [id number] [place] [address] 24166- 3286 Dec, [facility] [id number] [place] [address] 70367- 1545 Dec, detention current use of anticoagulant Z79.01 ; Chronic pain syndrome G89.4 and Essential hypertension I10 [facility] [id number] [place] [address] 02251- 4127 Dec, [facility] [id number] [place] [address] 62160- 9809 Dec, Type 2 diabetes mellitus with other diabetic kidney complication E11.29 [facility] [id number] [address]- 3940 Dec, [facility] [id number] [place] [address] 98744- 6001 Dec, Gastroesophageal reflux disease without esophagitis K21.9 [facility] [id number] [address]- 1340 November, Type 2 diabetes mellitus with other diabetic kidney complication E11.29 [facility] [id number] [address]- 8948 November, [facility] [id number] [place] [address] 77886- 5161 November, Type 2 diabetes mellitus with other diabetic kidney complication E11.29 [facility] [address] [address]- 6023 November, [facility] [id number] [place] [address] 01294- 6498 November, Type 2 diabetes mellitus with other diabetic kidney complication E11.29 [facility] [id number] [place] [address] 48124- 7505 November, [facility] [id number] [address]- 8622 Oct, Essential hypertension I10 [facility] [id number] [place] [address] 65229- 6683 Oct, Psoriasis of scalp L40.9 [facility] [id number] [place] [address] 63093- 0397 Oct, Essential hypertension I10 and Chronic pain syndrome G89.4 [facility] [id number] [address]- 3502 Oct, [facility] [id number] [place] [address] 93681- 0088 Sep, Type 2 diabetes mellitus with other diabetic kidney complication E11.29 [facility] [address] [address]- 2998 Sep, [facility] [address] [address]- 4739 Sep, Type 2 diabetes mellitus with other diabetic kidney complication E11.29 [facility] [address] [address]- 7815 Sep, Type 2 diabetes mellitus with other diabetic kidney complication E11.29 [facility] [address] [address]- 3593 Sep, Type 2 diabetes mellitus with other [...] extremity R20.2 and Psoriasis of scalp L40.9 [place] [address] 45722- 2426 Sep, [place] [address] 69192- 2165 Aug, Essential hypertension I10 [address] 67074- 9017 Aug, History of DVT (deep vein thrombosis) Z86.[address] 60050- 2116 Aug, [place] [id number] [place] [address] 83430- 0296 Jul, [address] 55835- 5495 Jul, [place] [id number] [place] [address] 81194- 5084 Jul, detention current use of anticoagulant Z79.01 ; Chronic pain syndrome G89.4 and Chronic kidney disease, stage 4 (severe) N18.4 [place] [id number] [place] [address] 99910- 9665 Jul, [address] 78541- 6676 Jul, [place] [id number] [place] [address] 20089- 7758 Jul, [address] 15785- 3682 Jul, [place] [address] [address]- 2652 Jul, [address] [place] [address] 72090- 1593 Jul, Type 2 diabetes mellitus with other diabetic kidney complication E11.29 [address] [place] [address] 85052- 5097 Jul, History of DVT (deep vein thrombosis) Z86.718 [place] [id number] [place] [address] 99643- 5692 Jun, [id number] [place] [address] 24187- 2599 Jun, History of DVT (deep vein thrombosis) Z86.718 [place] [id number] [place] [address] 06443- 0002 15 Jun, 2016 Post traumatic stress disorder (PTSD) F43.10 [address] [place] [address] 60586- 7219 07 Jun, 2016 Type 2 diabetes mellitus [...] pain M79.641 and Right wrist pain M25.531 [address] [place] [address] 12383- 1040 May, [facility] [address] [facility] [id number] [place] [address]- 2995 May, [facility] [address] [facility] [id number] [place] [address], [place] [address] 2549 May, [facility] [id number] [place] [address]- 7465 May, [facility] [address] [facility] [id number] [place] [address], [place] [address]- 7357 May, Anemia in other chronic diseases classified elsewhere D63.8 [facility] [address] [facility] [id number] [place] [address], [place] [address]- 6252 May, [facility] [id number] [place] [address], [place] [address]- 6881 Apr, [facility] [id number] [place] [address] 88412- 3697 27 Mar, 2016 Dermatofibroma D23.9 [facility] [id number] [place] [address]- 7637 20 Mar, 2016 [facility] [id number] [place] [address], [place] [address]- 9224 14 Mar, 2016 Chronic pain syndrome G89.4 [facility] [address] [place] [address]- 5299 09 Mar, 2015 [facility] [id number] [address] 254 07 Mar, 2015 [facility] [id number] [place] [address]- 2540 Mar, [facility] [id number] [place] [address], [place] [address]- 2549 Feb, [facility] [address] [facility] [id number] [place] [address]- 6067 Feb, [facility] [id number] [place] [address] 20073- 5064 Feb, [facility] [id number] [address]- 3717 Feb, [facility] [address] [address]- 7109 Feb, [facility] [address] [address]- 6558 Feb, [place] [id number] [place] [address] 96855- 0961 Feb, Type 2 diabetes mellitus with other [...] Renal failure, chronic, stage 4 (severe) N18.4 [place] [id number] [place] [address] 10479- 1490 Feb, Skin tags, multiple acquired L91.8 [address] [address]- 0012 Jan, [facility] [id number] [id number] Jan, Dental examination Z01.20 [place] [address] [address]- 7070 Jan, [place] [id number] [place] [address] 06457- 0257 Jan, Type 2 diabetes mellitus with other [...] Renal failure, chronic, stage 4 (severe) N18.4 [facility] [id number] [place] [address] 21065- 5088 Dec, Diabetes type 2, uncontrolled E11.[address] 24588- 2463 Dec, [address] 50687- 2669 Dec, Type 2 diabetes mellitus with other [...] - [facility] [id number] [place] [address] [id number] Dec, Dental caries K02.9 [facility] [address] [facility] [id number] [place] [address] [id number] Dec, [facility] [id number] [place] [address] [id number] Dec, Dental examination Z01.20 [facility] [id number] [place] [address] [id number] November, Dental examination Z01.20 and Dental caries K02.9 [facility] [id number] [id number] Oct, [facility] [id number] [place] [address] [id number] Oct, [facility] [address] [id number] [id number] Sep, [facility] [id number] [place] [address] [id number] Sep, [facility] [id number] [place] [address] [id number] Sep, [facility] [id number] [place] [address] [phone] Sep, Other chronic pain 338.29 [facility] [id number] [place] [address] [phone] Aug, Diabetes type 2, uncontrolled E11.65 and Morbid obesity due to excess calories E66.01 [facility] [id number] [place] [address] [id number] Aug, Hair loss L65.9 [facility] [id number] [place] [address] [id number] Aug, [facility] [id number] [place] [address] [id number] Jul, [facility] [id number] [place] [address] [id number] Jul, [facility] [id number] [id number] Jun, [facility] [id number] [place] [address] [id number] Jun, Hair loss L65.9 and Disorder of the skin and subcutaneous tissue, unspecified L98.9 [facility] [address] [id number] [place] [address] [id number] May, Type 2 diabetes mellitus with other diabetic kidney complication E11.29 ; Type 2 diabetes mellitus with hyperglycemia E11.65 ; Morbid obesity due to excess calories E66.01 and Essential hypertension I10 [facility] [id number] [place] [address] [id number] May, Diabetes type 2, uncontrolled E11.65 ; Encounter for immunization Z23 and Morbid obesity due to excess calories E66.01 [id number] [place] [address] [id number] May, [facility] [id number] [place] [address] 45759- 0636 Apr, [id number] [place] [address] [id number] Apr, Hyperglycemia R73.9 [id number] [place] [address] [id number] Apr, [address] [id number] Apr, Depression F32.9 ; Encounter for immunization Z23 ; Hyperglycemia R73.9 and Anemia in other chronic diseases classified elsewhere D63.8 [facility] [id number] [place] [address] [id number] Mar, [id number] [place] [address] [id number] Feb, Positive occult stool blood test 792.1 [id number] [place] [address] [phone] Feb, Depression 311 ; Other chronic pain 338.29 and Diabetes with renal manifestations, type II or unspecified type, not stated as uncontrolled 250.40 [facility] [id number] [address] Feb, Occult blood in stools 792.1 [address] [place] [address] [id number] Feb, Anemia 285.9 ; Occult blood positive stool 792.1 ; Unspecified essential hypertension 401.9 and Other chronic pain 338.29 [address] [place] [address] [id number] Feb, [id number] [place] [address] [id number] Feb, Anemia 285.9 [id number] [place] [address] [place] [id number] Feb, [facility] [place] [id number] [id number] Feb, [facility] [place] [id number] [place] [address] [id number] Feb, Diabetes with renal manifestations, type II or unspecified type, not stated as uncontrolled 250.40 ; Other chronic pain 338.29 ; Unspecified essential hypertension 401.9 ; Anemia 285.9 and Depression 311 [facility] [place] [id number] [place] [address] [id number] Jan, [facility] [place] [id number] [place] [address] [id number] Jan, Anemia 285.9 and Follow up V67.9 [facility] [place] [id number] [place] [address] [id number] Jan, [facility] [place] [id number] [place] [address] [id number] Jan, [facility] [place] [id number] [place] [address] [id number] Jan, [facility] [place] [id number] [place] [address] [id number] Dec, [facility] [id number] [place] [address] 96232- 6946 Oct, [facility] [id number] [place] [address] 87104- 6354 Oct, [facility] [id number] [place] [address] 48556- 2546 Sep, [facility] [place] [address] [id number] [id number] Sep, [facility] [id number] [place] [address] 00626- 2757 Sep, [facility] [place] [id number], [place] [id number] Aug, [facility] [id number] [place] [address] 40804- 8907 Aug, [facility] [place] [facility] [address] [id number] [address]- 9216 Aug, [facility] [place] [address] [id number] [place] [id number] Aug, [facility] [place] [facility] [address] [facility] [id number] [place] [address]- 0086 Aug, [facility] [place] [facility] [address] [facility] [id number] [place] [address]- 4896 Aug, [facility] [place] [address] [id number], [place] [id number] Aug, [facility] [place] [facility] [address] [facility] [id number] [place] [address]- 6936 Aug, [facility] [place] [address] [facility] [id number][place] [id number] Jul, [facility] [place] [facility] [id number] [address]- 5976 Jul, [facility] [place] [facility] [address] [id number] [address]- 9864 Jul, [facility] [place] [address] [facility] [id number], [place] [id number] Jul, [facility] [place] [facility] [id number] [address]- 9016 Jul, [facility] [place] [address] [facility] [id number], [place] [id number] Jul, [facility] [place] [facility] [address] [facility] [id number] [address]- 2636 Jul, [facility] [place] [address] [id number] [place] [id number] Jun, [facility] [place] [address] [facility] [id number], [place] [id number] Jun, [facility] [place] [facility] [address] [id number] [address]- 8570 Jun, [facility] [place] [facility] [address] [facility] [id number] [address]- 6429 Jun, [facility] [place] [address] [id number] [place] [id number] Jun, [facility] [place] [facility] [address] [facility] [id number] [address]- 5816 Jun, [facility] [place] [address] [id number] [place] [id number] May, [facility] [place] [facility] [address] [facility] [id number] [place]- 1798 May, [facility] [place] [facility] [address] [facility] [id number] [address]- 3911 May, [facility] [place] [address] [id number], [place] [id number] Apr, [facility] [place] [facility] [address] [facility] [id number] [place]- 4395 Apr, [facility] [place] [address] [id number], [place] [id number] Apr, [facility] [place] [address] [facility] [id number], [place] [id number] Apr, [facility] [place] [facility] [address] [facility] [id number] 6094 Apr, [facility] [place] [facility] [address] [facility] [id number] [address]- 4779 Apr, [facility] [place] [address] [id number], [place] [id number] Mar, [facility] [place] [facility] [address] [facility] [id number] [place] 27473085- 8765 18 Mar, 2014 [facility] [place] [address] [id number], [place] [id number] Mar, [facility] [place] [facility] [address] [facility] [id number]- 5982 17 Mar, 2014 [facility] [place] [address] [facility] [id number], [place] [id number] 16 Mar, 2014 [facility] [place] [facility] [address] [facility] [id number] [place] [address]- 9846 Mar, [facility] [place] [address] [id number] [place] [id number] Mar, [facility] [place] [facility] [address] [facility] [id number] [place] [address]- 6736 Mar, [facility] [place] [address] [id number] [place] [id number] Mar, [facility] [place] [facility] [address] [id number] [place] [address]- 8196 Mar, [facility] [place] [address] [id number] [place] [id number] Feb, [facility] [place] [facility] [address] [facility] [id number] [place] [address]- 7296 Feb, [facility] [place] [address] [id number] [place] [id number] Jan, [facility] [place] [facility] [address] [facility] [id number] [place] [address]- 6338 Jan, [facility] [place] [address] [facility] [id number] [place] [id number] Jan, [facility] [place] [facility] [address] [facility] [id number] [place] [address]- 2989 Jan, [facility] [place] [address] [id number] [place] [id number] Jan, [facility] [place] [facility] [address] [facility] [id number] [place] [address]- 3915 Jan, [facility] [place] [facility] [address] [facility] [id number] [place] [address]- 2593 Dec, [facility] [place] [facility] [address] [facility] [id number] [place] [address]- 8490 Dec, [facility] [place] [address] [id number] [place] [id number] November, [facility] [place] [facility] [address] [facility] [id number] [place] [address]- 8401 November, [facility] [place] [address] [id number] [place] [id number] November, [facility] [place] [facility] [address] [id number] [place] [address]- 9706 November, [facility] [place] [address] [facility] [id number] [place] [id number] Oct, [facility] [place] [facility] [address] [facility] [id number] [place] [address]- 7757 Oct, [facility] [place] [facility] [address] [facility] [id number] [place] [address]- 2461 Oct, [facility] [place] [facility] [address] [facility] [id number] [place] [address]- 3060 Oct, [facility] [place] [facility] [address] [facility] [id number] [place] [address]- 7878 Oct, [facility] [place] [facility] [address] [facility] [id number] [place] [address]- 7696 Oct, [facility] [place] [address] [facility] [id number], [place] [id number] Sep, [facility] [place] [address] [facility] [id number], [place] [id number] Sep, [facility] [place] [facility] [address] [facility] [id number] [address]- 2335 Sep, [facility] [place] [facility] [address] [facility] [id number] [address]- 2807 Sep, [facility] [place] [address] [facility] [id number], [place] [id number] Sep, [facility] [place] [facility] [address] [facility] [id number] [place] [address]- 4496 Sep, [facility] [place] [facility] [address] [facility] [id number] [address]- 3806 Aug, [facility] [place] [facility] [address] [facility] [id number] [address]- 2082 Aug, [facility] [place] [address] [facility] [id number], [place] [id number] Aug, [facility] [place] [address] [id number] [place] [id number] Aug, [facility] [place] [facility] [address] [facility] [id number] [address]- 3176 Aug, [facility] [place] [address] [facility] [id number] [place] [id number] Aug, [facility] [place] [facility] [address] [facility] [id number] [address]- 6116 Aug, [facility] [place] [address] [facility] [id number] [place] [id number] Aug, [facility] [place] [facility] [id number] [address]- 7496 Aug, [facility] [place] [address] [facility] [id number] [place] [id number] Aug, [facility] [place] [facility] [address] [id number] [address]- 1156 Aug, [facility] [place] [address] [facility] [id number] [place] [id number] Aug, [facility] [place] [facility] [address] [id number] [address]- 6923 Aug, [facility] [place] [facility] [address] [id number] [address]- 9675 Jul, [facility] [place] [address] [facility] [id number], [place] 020538250 Jun, [facility] [place] [facility] [address] [facility] [id number] [address]- 8513 Jun, [facility] [place] [facility] [address] [facility] [id number] [address]- 6654 Jun, [facility] [place] [facility] [address] [facility] [id number] [address]- 4976 Jun, [facility] [place] [address] [facility] [id number], [place] [id number] Jun, [facility] [place] [facility] [address] [id number] [address]- 4086 Jun, [facility] [place] [facility] [address] [id number] [place] [address]- 7496 Jun, [facility] [place] [address] [facility] [id number], [place] [id number] Jun, [facility] [place] [facility] [address] [id number] [place] [address]- 6586 Jun, [facility] [place] [facility] [address] [id number] [place] [address]- 1265 May, [facility] [place] [address] [facility] [id number], [place] [id number] May, [facility] [place] [facility] [address] [facility] [id number] [place] [address]- 1106 May, [facility] [place] [facility] [address] [id number] [address]- 1723 May, [facility] [place] [facility] [address] [facility] [id number] [address]- 5377 May, [facility] [place] [facility] [address] [facility] [id number] [address]- 4756 May, [facility] [place] [address] [facility] [id number], [place] [id number] May, [facility] [place] [facility] [address] [facility] [id number] [place] [address]- 2546 May, [facility] [place] [address] [facility] [id number], [place] [id number] May, [facility] [place] [facility] [address] [id number] [address]- 2546 May, [facility] [place] [address] [facility] [id number], [place] [id number] Apr, [facility] [place] [facility] [address] [facility] [id number] [address]- 1486 Apr, [facility] [place] [facility] [address] [facility] [id number] [address]- 4868 Apr, [facility] [place] [address] [facility] [id number], [place] [id number] Apr, [facility] [place] [facility] [address] [facility] [id number] [address]- 8243 Apr, [facility] [address] [facility] [id number] [address]- 4215 Apr, [facility] [place] [address] [facility] [id number], [place] [id number] Apr, [facility] [place] [facility] [address] [facility] [id number] [place] [address]- 9454 Apr, [facility] [place] [facility] [address] [facility] [id number] [address]- 2377 Apr, [facility] [place] [facility] [address] [facility] [id number] [address]- 7381 Apr, [facility] [place] [address] [facility] [id number], [place] 674451440 Apr, [facility] [place] [facility] [address] [facility] [id number] [address]- 9166 Apr, [facility] [place] [address] [id number], [place] 160211947 Apr, [facility] [place] [facility] [address] [facility] [id number] [address]- 9462 Apr, [facility] [place] [address] [facility] [id number], [place] [id number] Apr, [facility] [place] [facility] [address] [facility] [id number] [place] [address]- 6007 Apr, [facility] [place] [facility] [address] [facility] [id number] [address]- 4683 Apr, [facility] [place] [facility] [address] [facility] [id number] [address]- 5646 Apr, [facility] [place] [address] [facility] [id number], [place] [id number] Apr, [facility] [place] [facility] [address] [facility] [id number] [place] [address]- 6301 Mar, [facility] [address] [facility] [id number] [address]- 4647 Mar, [facility] [place] [address] [id number] [place] [id number] Mar, [facility] [place] [address] [id number] [place] [id number] Mar, [facility] [place] [address] [id number] [place] [id number] Mar, [facility] [place] [address] [id number] [place] [id number] Feb, [facility] [place] [address] [id number] [place] 745278441 Feb, [facility] [place] [address] [id number] [place] [id number] Feb, [facility] [address] [facility] [id number] [place] 598823- 5629 Feb, [facility] [place] [address] [id number] [place] 120863092 Feb, [facility] [place] [address] [id number] [place] [id number] Feb, [facility] [place] [address] [id number] [place] 240742336 Feb, [facility] [place] [address] [id number] [place] 650082616 Feb, [facility] [place] [address] [id number] [place] 403717272 Feb, [facility] [place] [address] [id number] [place] 427769333 Jan, [facility] [place] [address] [id number] [place] [id number] Jan, [facility] [place] [address] [id number] [place] 022647517 Jan, [facility] [place] [address] [id number] [place] 250426688 Jan, [facility] [place] [address] [id number] [place] 045680109 Jan, [facility] [address] [facility] [id number] [address]- 4894 Jan, [facility] [place] [address] [id number] [place] 451921115 Jan, [facility] [place] [address] [id number] [place] 238290975 Jan, [facility] [place] [address] [id number] [place] 256237251 Dec, [facility] [place] [address] [id number] [place] 026916138 November, [facility] [place] [address] [id number] [place] 054639006 November, [facility] [place] [address] [id number] [place] 934758528 November, [facility] [place] [address] [id number] [place] 569782411 November, [facility] [place] [address] [id number] [place] [id number] November, [facility] [place] [address] [id number] [place] 796982925 November, [facility] [place] [address] [id number] [place] 137308612 Jul, [facility] [place] [address] [id number] [place] 190091742 Jul, [facility] [place] [address] [id number] [place] 341591590 Jul, [facility] [place] [address] [id number] [place] [id number] Jun, [facility] [address] [facility] [id number] [address]- 8352 Jun, [facility] [place] [address] [id number] [place] [id number] May, [facility] [address]00565100[place] [address]- 2788 May, [facility] [place] [address] [id number], [place] 657217670 May, [facility] [place] [facility] [address] [facility] [id number] [address]- 6616 May, [facility] [place] [address] [id number], [place] [id number] May, [facility] [address] [facility] [id number] [address]- 9356 May, [facility] [place] [address] [id number], [place] 633521261 Apr, [facility] [address] [facility] [id number] [place] [address] 44258- 1206 Apr, [facility] [place] [facility] [address] [facility] [id number] [place] [address]- 5256 Apr, [facility] [place] [address] [id number], [place] 690744793 Apr, [facility] [place] [address] [id number], [place] 857847060 Apr, [facility] [address]00565100[place] [address]- 2099 Apr, [facility] [place] [facility] [address] [facility] [id number] [place] [address]- 1256 Apr, [facility] [place] [address] [id number], [place] [id number] Apr, [facility] [place] [facility] [address] [facility] [id number] [place] [address]- 2546 Apr, [facility] [place] [address] [id number], [place] 860606359 Apr, [facility] [place] [address] [id number], [place] 341988778 Apr, [facility] [place] [address] [id number], [place] [id number] Mar, [facility] [place] [address] [id number], [place] [id number] Feb, [facility] [place] [address] [id number] [place] [id number] Jan, [facility] [place] [address] [id number] [place] [id number] Dec, [facility] [place] [address] [id number] [place] [id number] Dec, [facility] [place] [address] [id number] [place] [id number] Dec, [facility] [place] [address] [id number] [place] [id number] Dec, [facility] [place] [address] [id number] [place] [id number] Dec, [facility] [place] [address] [id number] [place] [id number] November, [facility] [place] [address] [id number] [place] [id number] November, [facility] [place] [address] [id number] [place] [id number] November, [facility] [address] [facility] [id number] [place] [address] November, [facility] [place] [address] [id number] [place] [id number] November, [facility] [place] [address] [id number] [place] [id number] November, [facility] [place] [address] [id number] [place] [id number] Oct, [facility] [place] [address] [id number] [place] [id number] Oct, [facility] [place] [address] [id number] [place] [id number] Oct, [facility] [place] [address] [id number] [place] [id number] Oct, [facility] [place] [address] [id number] [place] [id number] Oct, [facility] [place] [address] [id number] [place] [id number] Oct, [facility] [place] [address] [id number][place] [id number] Sep, [facility] [place] [address] [id number] [place] [id number] Aug, [facility] [place] [address] [id number] [place] [id number] Aug, [facility] [place] [address] [id number] [place] [id number] Jul, [facility] [place] [facility] [address] [facility] [id number] [place] [address] Jun, [facility] [place] [facility] [address] [id number] [place] [address] Jun, [facility] [place] [facility] [address] [facility] [id number] [place] [address] Jun, [facility] [place] [facility] [id number] [address] Jun, [facility] [place] [facility] [address] [id number] [address] May, [facility] [place] [facility] [address] [id number] [address] May, [facility] [place] [facility] [id number] [address] Apr, [facility] [place] [facility] [id number] [address] Apr, [facility] [place] [facility] [address] [id number] [address] Apr, [facility] [place] [facility] [address] [facility] [id number] [place] [address] Feb, [facility] [place] [facility] [address] [facility] [id number] [place] [address] 15 Aug, 2010 [facility] [place] [facility] [address] [facility] [id number] [place] [address] Jul, [facility] [place] [facility] [address] [facility] [id number] [place] [address] 30 Jun, 2010 [facility] [address] [id number] [place] [address] May, [facility] [place] [facility] [address] [id number] [place] [address] May, [facility] [address] [facility] [id number] [place] [address] May, [facility] [place] [facility] [address] [id number] [place] [address] May, [facility] [address] [id number] [place] [address], [place] [address] May, [facility] [place] [facility] [address] [facility] [id number] [place] [address] Aug, [facility] [address] [facility] [id number] [place] [address] Jun, [facility] [place] [facility] [address] [facility] [id number] [place] [address] Jun, [facility] [address] [facility] [id number] [place] [address] Jun, [facility] [place] [facility] [address] [facility] [id number] [place] [address] 24 May, 2009 [facility] [place] [facility] [address] [facility] [id number] [place] [address] 28 Apr, 2009 [facility] [place] [facility] [address] [facility] [id number] [place] [address] 27 Apr, 2009 [facility] [place] [facility] [address] [facility] [id number] [place] [address] 15 Apr, 2009 [facility] [place] [facility] [address] [facility] [id number] [place] [address] 20 Jan, 2009 [facility] [place] [facility] [address] [facility] [id number] [place] [address] 13 Oct, 2008 [facility] [place] [facility] [address] [facility] [id number] [place] [address] May, [facility] [address] [facility] [id number] [place] [address] May, IMMUNIZATIONS No Known Immunizations SOCIAL HISTORY Never Assessed REASON FOR VISIT Letter PLAN OF CARE VITAL SIGNS MEDICATIONS Unknown [...] Dialysis [facility] 2012 -Dr. Simon now [facility] Medical History Colonoscopy (polyps 2 ) [...]
--- OUTSIDE RECORDS SUMMARY | 2018-01-17 10:26 | XMS REPORT | Continuity of Care Document ---
Author Author Formerly [facility] Address Unknown Phone Unavailable Allergies [...] N/ A 12/11/2013 Yes Sulfa (Sulfonamide Antibiotics) [id number] Drug Allergy Unknown N/A 2013 Yes insulin aspart [id number] Drug Allergy Mild NAUSEA 07/24/2014 Medications There [...] DERMATITIS OTHER SKIN DISORDERS 05/07/2008 SOHAN HINES, AJY M 788.1 DYSURIA 05/07/2008 REAL DO, SHAYNA [...] 709.9 DERMATITIS OTHER SKIN DISORDERS 05/07/2008 HELLWIG GROCERY CLERK SELLING, KATLYN E 788.1 DYSURIA 05/07/2008 REAL DO, [...] K 599.0 URINARY TRACT INFECTION 05/08/2008 HELVANESSA GROCERY CLERK SELLING, KATLYN E 599.0 URINARY TRACT INFECTION 05/08/2008 HEMANTH GROCERY CLERK SELLING, KATLYN E 599.0 URINARY TRACT INFECTION 05/08/2008 [...] Overton V58.31 WOUND DRESSING 05/12/2008 REAL DO, SHANYA K V58.31 WOUND DRESSING 05/12/2008 REAL DO, SHAYNA K V58.31 WOUND DRESSING 05/12/2008 REAL DO, SHAYNA K V58.31 WOUND DRESSING 05/12/2008 DOMENIC HINES, JETHRO V58.31 WOUND DRESSING 05/12/2008 JETHRO SHETH MD V58.31 WOUND DRESSING 05/12/2008 REAL DO, SHAYNA K V58.31 WOUND DRESSING 05/12/2008 [facility] GROCERY CLERK SELLING KATLYN E V58.31 WOUND DRESSING 05/12/2008 HELCRISTAL GROCERY CLERK SELLINGJAMEL CarlSIE E V58.31 WOUND DRESSING 05/12/2008 REAL DO, SHAYNA K V58.31 WOUND DRESSING 05/12/2008 [facility] SELLINGJAMEL CarlSIE E V58.31 WOUND DRESSING 05/12/2008 REAL DO, SHAYNA K V58.31 WOUND DRESSING 05/12/2008 BRITT HINES, ROSSY Carl V58.31 WOUND DRESSING 05/12/2008 [facility] GROCERY CLERK SELLINGJAMEL CarlSIE E V58.31 WOUND DRESSING 05/14/2008 AIMEE [...] DO, SHAYNA K 079.99 VIRAL SYNDROME 05/15/2008 RELA DO, SHAYNA K 729.5 PAIN IN LIMB [...] MD N 729.5 PAIN IN LIMB 05/15/2008 KATYLN SAXENA APRN E 079.99 VIRAL SYNDROME 05/15/2008 [...] 616.10 VAGINITIS AND VULVOVAGINITIS UNSPECIFIED 05/17/2008 JAMEL ERAL DOA K 616.10 VAGINITIS AND VULVOVAGINITIS UNSPECIFIED 05/17/2008 SOHAN HINES, JAY Overton 616.10 VAGINITIS AND VULVOVAGINITIS UNSPECIFIED 05/17/2008 SHAYNA REAL DO K 616.10 VAGINITIS AND VULVOVAGINITIS UNSPECIFIED 05/17/2008 SOHAN HINES, JAY Overton 616.10 VAGINITIS AND VULVOVAGINITIS UNSPECIFIED 05/17/2008 JAMEL REAL DOA K 616.10 VAGINITIS AND VULVOVAGINITIS UNSPECIFIED 05/17/2008 SHAYNA REAL DO K 616.10 VAGINITIS AND VULVOVAGINITIS UNSPECIFIED 05/17/2008 SHAYNA RELA DO K 616.10 VAGINITIS AND VULVOVAGINITIS UNSPECIFIED [...] REAL DO, SHAYNA K 307.40 INSOMNIA 07/16/2008 [facility] GROCERY CLERK SELLING, KATLYN E 272.0 HYPERLIPIDEMIA SWETHA CLASSIFICATION TYPE IIA 07/16/2008 [facility]LL[facility], KATLYN E 307.40 INSOMNIA 07/16/2008 REAL DO, SHAYNA K 272.0 HYPERLIPIDEMIA SWETHA CLASSIFICATION TYPE IIA 07/16/2008 REAL DO, SHAYNA K 307.40 INSOMNIA 07/16/2008 ROSSY DE LA TORRE MD N 272.0 HYPERLIPIDEMIA SWETHA CLASSIFICATION TYPE IIA 07/16/2008 ROSSY DE LA TORRE MD N 307.40 INSOMNIA 07/16/2008 [facility] KATLYN [place] E 272.0 HYPERLIPIDEMIA SWETHA CLASSIFICATION TYPE IIA 07/16/2008 [facility] LEN, KATLYN E 307.40 INSOMNIA 10/15/2008 AIMEE [...] REAL DO, SHAYNA K 278.00 OBESITY 10/15/2008 ERAL DO, SHAYNA K 401.1 ESSENTIAL HYPERTENSION BENIGN 10/15/2008 [facility] SELLING, KATLYN E 278.00 OBESITY 10/15/2008 HELLWIG GROCERY CLERK SELLING, KATLYN E 401.1 ESSENTIAL HYPERTENSION BENIGN 10/15/2008 HELWIG GROCERY CLERK SELLING, KATLYN E 278.00 OBESITY 10/15/2008 [facility] GROCERY CLERK SELLING, KATLYN E 401.1 ESSENTIAL HYPERTENSION BENIGN 10/15/2008 REAL DO, SHAYNA K 278.00 OBESITY 10/15/2008 REAL DO, SHAYNA K 401.1 ESSENTIAL HYPERTENSION BENIGN 10/15/2008 [facility] GROC[facility] CLERK SELLING, KATLYN E 278.00 OBESITY 10/15/2008 [facility] GROCERY CLERK SELLING, KATLYN E 401.1 ESSENTIAL HYPERTENSION BENIGN 10/15/2008 REAL DO, SHAYNA K 278.00 OBESITY 10/15/2008 REAL DO, SHAYNA K 401.1 ESSENTIAL HYPERTENSION BENIGN 10/15/2008 ROSSY DE LA TORRE MD N 278.00 OBESITY 10/15/2008 ROSSY DE LA TORRE MD N 401.1 ESSENTIAL HYPERTENSION BENIGN 10/15/2008 [facility] SANTAMARIAN, KATLYN E 278.00 OBESITY 10/15/2008 [facility] GROCERY CLERK SELLING, KATLYN E 401.1 ESSENTIAL HYPERTENSION BENIGN 04/30/2009 AIMEE CONKLIN MD 251.1 HYPERINSULINISM 04/30/2009 AIMEE CONKLIN MD 270.7 HYPERGLYCEMIA 04/30/2009 AIMEE CONKLIN MD 251.1 HYPERINSULINISM 04/30/2009 AIEME CONKLIN MD 270.7 HYPERGLYCEMIA 04/30/2009 251.1 HYPERINSULINISM [...] DO, SHAYNA K 270.7 HYPERGLYCEMIA 04/30/2009 HELLWIG GROCERY CLERK SELLING, KATLYN E 251.1 HYPERINSULINISM 04/30/2009 HELLWIG GROCERY CLERK SELLING, KATLYN E 270.7 HYPERGLYCEMIA 04/30/2009 HELLWIG GROCERY CLERK SELLING, KATLYN E 251.1 HYPERINSULINISM 04/30/2009 HELLWIG GROCERY CLERK SELLING, KATLYN E 270.7 HYPERGLYCEMIA 04/30/2009 REAL DO, SHAYNA K 251.1 HYPERINSULINISM 04/30/2009 REAL DO, SHAYNA K 270.7 HYPERGLYCEMIA 04/30/2009 HELLWIG GROCERY CLERK SELLING, KATLYN E 251.1 HYPERINSULINISM 04/30/2009 HELLWIG GROCERY CLERK SELLING, KATLYN E 270.7 HYPERGLYCEMIA 04/30/2009 REAL DO, SHAYNA K 251.1 HYPERINSULINISM 04/30/2009 REAL DO, SHAYNA K 270.7 HYPERGLYCEMIA 04/30/2009 ROSSY DE LA TORRE MD N 251.1 HYPERINSULINISM 04/30/2009 ROSSY DE LA TORRE MD N 270.7 HYPERGLYCEMIA 04/30/2009 HELLWIG GROCERY CLERK SELLING, KATLYN E 251.1 HYPERINSULINISM 04/30/2009 HELLWIG GROCERY CLERK SELLING, KATLYN E 270.7 HYPERGLYCEMIA 05/28/2009 AIMEE CONKLIN [...] - KNEE RIGHT 07/25/2009 SOHAN HINES, JAY Oevrton 715.16 OSTEOARTHRITIS LOCALIZED PRIMARY - KNEE RIGHT [...] SHAYNA K 285.9 ANEMIA UNSPECIFIED 08/06/2009 JETHRO SHTEH MD 285.9 ANEMIA UNSPECIFIED 08/06/2009 JETHRO SHETH [...] E 280.9 ANEMIA IRON DEFICIENCY 08/20/2009 HEMANTH GROCERY CLERK SELLING, KATLYN E 844.2 SPRAINS AND STRAINS OF [...] 729.81 (Lower) Leg Localized Swelling 10/03/2009 HELLWIG GROCERY CLERK SELLING, KATLYN E 729.81 (Lower) Leg Localized Swelling 10/03/2009 HELLWIG GROCERY CLERK SELLING, KATLYN E 729.81 (Lower) Leg Localized Swelling 10/03/2009 REAL DO, SHAYNA K 729.81 (Lower) Leg Localized Swelling 10/03/2009 HELLWIG GROCERY CLERK SELLING, KATLYN E 729.81 (Lower) Leg Localized Swelling 10/03/2009 REAL DO, SHAYNA K 729.81 (LOWER) LEG LOCALIZED SWELLING 10/03/2009 ROSSY DE LA TORRE MD N 729.81 (LOWER) LEG LOCALIZED SWELLING 10/03/2009 HELLWIG GROCERY CLERK SELLING, KATLYN E 729.81 (LOWER) LEG LOCALIZED SWELLING [...] HISTORY OF ALLERGY TO OTHER FOODS 05/26/2010 AIEME CONKLIN MD 380.10 INFECTIVE OTITIS EXTERNA UNSPECIFIED [...] OF ALLERGY TO OTHER FOODS 05/26/2010 ELOYLCRISTAL GROCERY CLERK SELLINGKATLYN 380.10 INFECTIVE OTITIS EXTERNA UNSPECIFIED 05/26/2010 HEMANTH [...] K 786.05 SHORTNESS OF BREATH 07/03/2010 HELLWIG GROCERY CLERK SELLING, KATLYN E 782.3 EDEMA 07/03/2010 HELLWIG GROCERY CLERK SELLING, KATLYN E 786.05 SHORTNESS OF BREATH 07/03/2010 HELLWIG GROCERY CLERK SELLING, KATLYN E 782.3 EDEMA 07/03/2010 HELLWIG GROCERY CLERK SELLING, KATLYN E 786.05 SHORTNESS OF BREATH 07/03/2010 REAL DO, SHAYNA K 782.3 EDEMA 07/03/2010 REAL DO, SHAYNA K 786.05 SHORTNESS OF BREATH 07/03/2010 HELLWIG GROCERY CLERK SELLING, KATLYN E 782.3 EDEMA 07/03/2010 [facility] GROCERY CLERK SELLING, KATLYN E 786.05 SHORTNESS OF BREATH 07/03/2010 ADDIE NOONAN, SHAYNA K 782.3 EDEMA 07/03/2010 REAL DO, SHAYNA K 786.05 SHORTNESS OF BREATH 07/03/2010 BRITT HINES, ROSSY N 782.3 EDEMA 07/03/2010 ROSSY DE LA TORRE MD N 786.05 SHORTNESS OF BREATH 07/03/2010 [facility] GROCERY CLERK SELLING, KATLYN E 782.3 EDEMA 07/03/2010 [facility] 786.05 SHORTNESS OF BREATH 07/22/2010 [...] K V67.9 UNSPECIFIED FOLLOW-UP EXAMINATION 07/22/2010 ELOYLCRISTAL GROCERY CLERK SELLING KATLYN E 780.52 insomnia 07/22/2010 HELLCRISTAL GROCERY CLERK SELLING, KATLYN E V67.9 UNSPECIFIED FOLLOW-UP EXAMINATION 07/22/2010 ELOYLCRISTAL GROCERY CLERK SELLING, KATLYN E 780.52 insomnia 07/22/2010 ELOYLCRISTAL GROCERY CLERK SELLING, KATLYN E V67.9 UNSPECIFIED FOLLOW-UP EXAMINATION 07/22/2010 REAL DO, SHAYNA K 780.52 insomnia 07/22/2010 REAL DO, SHAYNA K V67.9 UNSPECIFIED FOLLOW-UP EXAMINATION 07/22/2010 HELLCRISTAL GROCERY CLERK SELLING KATLYN E 780.52 insomnia 07/22/2010 HELLCRISTAL GROCERY CLERK SELLING, KATLYN E V67.9 UNSPECIFIED FOLLOW-UP EXAMINATION 07/22/2010 REAL DO, SHAYNA K 780.52 INSOMNIA 07/22/2010 REAL DO, SAHYNA K V67.9 UNSPECIFIED FOLLOW-UP EXAMINATION 07/22/2010 ROSSY DE LA TORRE MD 780.52 INSOMNIA 07/22/2010 ROSSY DE LA TORRE MD V67.9 UNSPECIFIED FOLLOW-UP EXAMINATION 07/22/2010 HELLCRISTAL GROCERY CLERK SELLING, KATLYN E 780.52 INSOMNIA 07/22/2010 HELLCRISTAL [place] [...] SHAYNA K 724.2 lower back pain 08/19/2010 ERAL DO, SHAYNA K 724.2 lower back pain 08/19/2010 REAL DO, SHYANA K 724.2 lower back pain 08/19/2010 REAL [...] INFECTIONS OF UNSPECIFIED SITE 10/01/2010 REAL DO, SAHYNA K 465.9 ACUTE UPPER RESPIRATORY INFECTIONS OF [...] RESPIRATORY INFECTIONS OF UNSPECIFIED SITE 10/01/2010 HELLCRISTAL GROCERY CLERK SELLING, KATLYN E 465.9 ACUTE UPPER RESPIRATORY INFECTIONS OF UNSPECIFIED SITE 10/01/2010 HELLWIG GROCERY CLERK SELLING, KATLYN E 465.9 ACUTE UPPER RESPIRATORY INFECTIONS OF UNSPECIFIED SITE 10/01/2010 REAL DO, SHAYNA K 465.9 ACUTE UPPER RESPIRATORY INFECTIONS OF UNSPECIFIED SITE 10/01/2010 HELLWIG GROCERY CLERK SELLING, KATLYN E 465.9 ACUTE UPPER RESPIRATORY INFECTIONS OF UNSPECIFIED SITE 10/01/2010 REAL DO, SHAYNA K 465.9 ACUTE UPPER RESPIRATORY INFECTIONS OF UNSPECIFIED SITE 10/01/2010 BRITT HINES, ROSSY Carl 465.9 ACUTE UPPER RESPIRATORY INFECTIONS OF UNSPECIFIED SITE 10/01/2010 HELLWIG GROCERY CLERK SELLING, KATLYN E 465.9 ACUTE UPPER RESPIRATORY INFECTIONS [...] JAY Overton 780.79 feeling weak 10/03/2010 SOHAN HIENS, JAY Overton 786.2 COUGH 10/03/2010 REAL DO, [...] DO, SHAYNA K 786.2 COUGH 10/03/2010 HELJannethWIG GROCERY CLERK SELLING, KATLYN E 780.79 feeling weak 10/03/2010 HEMANTH GROCERY CLERK SELLING, KATLYN E 786.2 COUGH 10/03/2010 HEMANTH [place] KATLYN E 780.79 feeling weak 10/03/2010 HELLCRISTAL GROCERY CLERK SELLING, KATLYN E 786.2 COUGH 10/03/2010 REAL DO, SHAYNA K 780.79 feeling weak 10/03/2010 REAL DO, SHAYNA K 786.2 COUGH 10/03/2010 HELLWIG GROCERY CLERK SELLING, KATLYN E 780.79 feeling weak 10/03/2010 HELLWIG GROCERY CLERK SELLING, KATLYN E 786.2 COUGH 10/03/2010 REAL DO, SHAYNA K 780.79 FEELING WEAK 10/03/2010 REAL DO, SHAYNA K 786.2 COUGH 10/03/2010 ROSSY DE LA TORRE MD 780.79 FEELING WEAK 10/03/2010 ROSSY DE LA TORRE MD 786.2 COUGH 10/03/2010 HELLCRISTAL GROCERY CLERK SELLING, KATLYN E 780.79 FEELING WEAK 10/03/2010 HELVANESSA [...] DO, SHAYNA K 780.4 lightheadedness 02/26/2011 ELOYCRISTAL GROCERY CLERK SELLING, KATLYN E 380.4 IMPACTED CERUMEN 02/26/2011 [facility]OC[facility] CLERK SELLING, KATLYN E 780.4 lightheadedness 02/26/2011 ELOYCRISTAL GROCERY CLERK SELLING, KATLYN E 380.4 IMPACTED CERUMEN 02/26/2011 ELOYCRISTAL GROCERY CLERK SELLING, KATLYN E 780.4 lightheadedness 02/26/2011 REAL DO, SHAYNA K 380.4 IMPACTED CERUMEN 02/26/2011 REAL DO, SHAYNA K 780.4 lightheadedness 02/26/2011 [facility]OC[facility] CLERK SELLING, KATLYN E 380.4 IMPACTED CERUMEN 02/26/2011 [facility] GROCERY CLERK SELLING, KATLYN E 780.4 lightheadedness 02/26/2011 REAL DO, SHAYNA K 380.4 IMPACTED CERUMEN 02/26/2011 REAL DO, SHAYNA K 780.4 LIGHTHEADEDNESS 02/26/2011 ROSSY DE LA TORRE MD N 380.4 IMPACTED CERUMEN 02/26/2011 ROSSY DE LA TORRE MD N 780.4 LIGHTHEADEDNESS 02/26/2011 [facility] GROCERY CLERK SELLING, KATLYN E 380.4 IMPACTED CERUMEN 02/26/2011 [facility] GROCERY CLERK SELLING, KATLYN E 780.4 LIGHTHEADEDNESS 05/27/2011 AIMEE CONKLIN [...] TYPE 2 - UNCOMPLICATED, CONTROLLED 06/30/2011 HELLWIG GROCERY CLERK SELLING, KATLYN E 250.00 DIABETES MELLITUS TYPE 2 - UNCOMPLICATED, CONTROLLED 06/30/2011 [facility] GROCERY CLERK SELLING, KATLYN E 250.00 DIABETES MELLITUS TYPE 2 - UNCOMPLICATED, CONTROLLED 06/30/2011 REAL DO, SHAYNA K 250.00 DIABETES MELLITUS TYPE 2 - UNCOMPLICATED, CONTROLLED 06/30/2011 [facility] GROC[facility] CLERK SELLING, KATLYN E 250.00 DIABETES MELLITUS TYPE 2 - UNCOMPLICATED, CONTROLLED 06/30/2011 REAL DO, SHAYNA K 250.00 DIABETES MELLITUS TYPE 2 - UNCOMPLICATED, CONTROLLED 06/30/2011 BRITT HINES, ROSSY N 250.00 DIABETES MELLITUS TYPE 2 - UNCOMPLICATED, CONTROLLED 06/30/2011 [facility] GROCERY CLERK SELLING, KATLYN E 250.00 DIABETES MELLITUS TYPE 2 [...] PLEASURE FROM USUAL ACTIVITIES (ANHEDONIA) 11/06/2011 HELLWIG GROCERY CLERK SELLING, KATLYN E 780.99 LOSS OF PLEASURE FROM [...] screening exam malignant neoplasm breast 04/12/2012 HELLWIG GROCERY CLERK SELLING, KATLYN E 401.9 ESSENTIAL HYPERTENSION 04/12/2012 [facility] GROCERY CLERK SELLING, KATLYN E 799.21 feeling nervous 04/12/2012 [facility]LL[facility], KATLYN E V76.10 visit for: screening exam malignant neoplasm breast 04/12/2012 [facility] GROCERY CLERK SELLING, KATLYN E 401.9 ESSENTIAL HYPERTENSION 04/12/2012 [facility] GROCERY CLERK SELLING, KATLYN E 799.21 feeling nervous 04/12/2012 [facility] KATLYN E V76.10 visit for: screening exam malignant neoplasm breast 04/12/2012 REAL DO, SHAYNA K 401.9 ESSENTIAL HYPERTENSION 04/12/2012 REAL DO, SHAYNA K 799.21 feeling nervous 04/12/2012 REAL DO, SHAYNA K V76.10 visit for: screening exam malignant neoplasm breast 04/12/2012 [facility] [place] KATLYN E 401.9 ESSENTIAL HYPERTENSION 04/12/2012 [facility], KATLYN E 799.21 feeling nervous 04/12/2012 [facility] KATLYN E V76.10 visit for: screening [...] SCREENING EXAM MALIGNANT NEOPLASM BREAST 04/12/2012 HELLCRISTAL GROCERY CLERK SELLING, KATLYN E 401.9 ESSENTIAL HYPERTENSION 04/12/2012 [facility] KATLYN E 799.21 FEELING NERVOUS 04/12/2012 [...] pain in both knees 04/22/2012 REAL DO, SHANYA K 719.46 joint pain in both knees [...] HINES, ROSSY Carl 793.80 ABNORMAL MAMMOGRAM 05/14/2012 [facility] BEE APRNSIE E 793.80 ABNORMAL MAMMOGRAM 12/06/2012 [...] 584.9 ACUTE RENAL FAILURE 01/18/2013 HEMANTH [place] AKTLYN E V68.01 visit for: issue medical certificate disability 01/18/2013 REAL DO SHAYNA K 584.9 ACUTE RENAL FAILURE 01/18/2013 REAL DO SHAYNA K V68.01 visit for: issue medical certificate disability 01/18/2013 HEMANTH GROCERY CLERK SELLING, KATLYN E 584.9 ACUTE RENAL FAILURE 01/18/2013 [...] E 787.01 NAUSEA WITH VOMITING 04/19/2013 HEMANTH GROCERY CLERK SELLING, KATLYN E 789.00 ABDOMINAL PAIN UNSPECIFIED SITE 04/19/2013 HEMANTH [place] KATLYN E 787.01 NAUSEA WITH VOMITING 04/19/2013 ELOYLCRISTAL [place] KATLYN E 789.00 ABDOMINAL PAIN UNSPECIFIED SITE 04/19/2013 REAL DO, SHAYNA K 787.01 NAUSEA WITH VOMITING 04/19/2013 REAL DO, SHAYNA K 789.00 ABDOMINAL PAIN UNSPECIFIED SITE 04/19/2013 HEMANTH [place] KATLYN E 787.01 NAUSEA WITH VOMITING 04/19/2013 HEMANTH GROCERY CLERK SELLING, KATLYN E 789.00 ABDOMINAL PAIN UNSPECIFIED SITE [...] REAL DO, SHAYNA K Ot 250.00 DIAB PUVRI WO COMPL, TYPE II OR UNSPEC TY [...] OF SUPERFICIAL VEINS OF UPPER EXTREMITY 05/03/2013 ADDEI NOONAN SHAYNA K 453.81 ACUTE VENOUS EMBOLISM [...] OF UPPER EXTREMITY 05/03/2013 ROSSY DE LA TORER MD 453.81 ACUTE VENOUS EMBOLISM AND THROMBOSIS [...] SHETH MD 789.07 ABDOMINAL PAIN GENERALIZED 05/15/2013 JETRHO SHETH MD 789.07 ABDOMINAL PAIN GENERALIZED 05/15/2013 [...] K V43.65 KNEE JOINT REPLACEMENT 08/16/2013 HELLWIG GROCERY CLERK SELLING KATLYN E 719.45 PAIN IN JOINT INVOLVING PELVIC REGION AND THIGH 08/16/2013 HELLCRISTAL GROCERY CLERK SELLING KATLYN E 724.8 OTHER SYMPTOMS REFERABLE TO BACK 08/16/2013 HELLWIG GROCERY CLERK SELLING KATLYN E V43.65 KNEE JOINT REPLACEMENT 08/16/2013 HELLWIG GROCERY CLERK SELLING KATLYN E 719.45 PAIN IN JOINT INVOLVING PELVIC REGION AND THIGH 08/16/2013 HELLWIG GROCERY CLERK SELLING KATLYN E 724.8 OTHER SYMPTOMS REFERABLE TO BACK 08/16/2013 HELLWIG GROCERY CLERK SELLING, KATLYN E V43.65 KNEE JOINT REPLACEMENT 08/16/2013 REAL DO SHAYNA K 719.45 PAIN IN JOINT INVOLVING PELVIC REGION AND THIGH 08/16/2013 ADDIE NOONAN SHAYNA K 724.8 OTHER SYMPTOMS REFERABLE TO BACK 08/16/2013 REAL DO SHAYNA K V43.65 KNEE JOINT REPLACEMENT 08/16/2013 HELLWIG GROCERY CLERK SELLING KATLYN E 719.45 PAIN IN JOINT INVOLVING PELVIC REGION AND THIGH 08/16/2013 HELLCRISTAL GROCERY CLERK SELLING, KATLYN E 724.8 OTHER SYMPTOMS REFERABLE TO [...] ANEMIA IN CHRONIC KIDNEY DISEASE 08/21/2013 HELLWIG GROCERY CLERK SELLING, KATLYN E 791.0 PROTEINURIA 08/21/2013 HELLWIG GROCERY CLERK SELLING, KATLYN E 250.40 DIABETES WITH RENAL MANIFESTATIONS [...] ADDIE DO SHAYNA K 791.0 PROTEINURIA 08/21/2013 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 01/10/2014 LUCILA GRACE MD Ot 786.50 [...] RANDY Oscar Ot I65.23 05/08/2015 CRISTEL PA, RADNY K Ot R26.89 05/14/2015 CRISTEL PA, RANDY [...] AIMEE Lagunas Ot 715.36 05/15/2015 KATLYN SAXENA GROCERY CLERK SELLING Ot 453.81 05/15/2015 KATLYN SAXENA GROCERY CLERK SELLING Ot 564.00 05/15/2015 KATLYN SAXENA GROCERY CLERK SELLING Ot 789.00 05/15/2015 SOHAN HINES, JAY Overton Ot V72.84 05/15/2015 MIUQEL HINES, YEE Butt Ot 715.36 05/15/2015 MIQUEL [...] 05/16/2015 LUCILA GRACE MD Ot 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 05/16/2015 LUCILA [...] ADULT 05/16/2015 LUCILA GRACE MD Ot 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 05/16/2015 LUCILA GRACE MD, Ot Z79.4 DIRECTOR [employer] (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 OF INSULIN 05/16/2015 LUCILA GRACE MD, Ot Z79.899 OTHER LONGTERM (CURRENT) DRUG THERAPY 06/07/2015 LUCILA GRACE MD [...] OCCLUSION AND STENOSIS OF BILATERAL GARCIA 11/27/2015 ORDY GARCIA GROCERY CLERK SELLING Ot I82.409 ACUTE EMBOLISM AND THOMBOS UNSP DEEP VN 12/04/2015 RODY GARCIA GROCERY CLERK SELLING Ot G47.33 OBSTRUCTIVE SLEEP APNEA (ADULT) (PEDIATR 12/04/2015 RODY GARCIA GROCERY CLERK SELLING Ot J98.4 OTHER DISORDERS OF LUNG 12/04/2015 RODY GARCIA GROCERY CLERK SELLING Ot R06.02 SHORTNESS OF BREATH 12/04/2015 RODY GARCIA GROCERY CLERK SELLING Ot R09.02 HYPOXEMIA 12/06/2015 RODY GARCIA APRN [...] 715.36 LOC OSTEOARTH NOS-L/LEG 05/13/2016 KATLYN SAXENA GROCERY CLERK SELLING Ot 453.81 ACUTE VENOUS EMBOLISM THROMBOSIS SUPER 05/13/2016 KATLYN SAXENA GROCERY CLERK SELLING Ot 564.00 UNSPEC CONSTIPATION 05/13/2016 KATLYN SAXENA GROCERY CLERK SELLING Ot 789.00 ABDOMINAL PAIN, UNSPECIFIED SITE 05/13/2016 [...] GRACE MD Ot 401.9 HYPERTENSION NOS 05/13/2016 ULCILA GRACE MD Ot 496 CHR AIRWAY OBSTRUCT [...] K Ot I10 ESSENTIAL (PRIMARY) HYPERTENSION 05/20/2016 SCHUTSER-JENNIFER PA, RANDY K Ot I65.23 OCCLUSION AND [...] OF BILATERAL GARCIA 07/17/2016 MADL, CHELSY L LIAISON INSPECTION LABORATORY ASSISTANT Ot Z12.31 ENCNTR SCREEN MAMMOGRAM FOR MALIGNANT NE 07/17/2016 MADL, CHELSY L LIAISON INSPECTION LABORATORY ASSISTANT Ot Z12.31 ENCNTR SCREEN MAMMOGRAM FOR MALIGNANT NE 07/28/2016 MADL, CHELSY L LIAISON INSPECTION LABORATORY ASSISTANT Ot Z12.31 ENCNTR SCREEN MAMMOGRAM FOR MALIGNANT [...] MD Ot E88.9 METABOLIC DISORDER, UNSPECIFIED 04/14/2017 CLADUIA DACOSTA MD Ot I12.9 HYPERTENSIVE CHRONIC KIDNEY DISEASE W ST 04/14/2017 CLAUDIA DACOTSA MD Ot N18.4 CHRONIC KIDNEY DISEASE, STAGE [...] HYPERTENSIVE CHRONIC KIDNEY DISEASE W ST 05/05/2017 LCAUDIA DACOSTA MD Ot N18.4 CHRONIC KIDNEY DISEASE, [...] 715.36 LOC OSTEOARTH NOS-L/LEG 09/22/2017 KATLYN SAXENA GROCERY CLERK SELLING Ot 453.81 ACUTE VENOUS EMBOLISM THROMBOSIS SUPER 09/22/2017 KATLYN SAXENA GROCERY CLERK SELLING Ot 564.00 UNSPEC CONSTIPATION 09/22/2017 KATLYN SAXENA GROCERY CLERK SELLING Ot 789.00 ABDOMINAL PAIN, UNSPECIFIED SITE 09/22/2017 [...] OF BILATERAL GARCIA 09/22/2017 BRODERICK CHELSY L LIAISON INSPECTION LABORATORY ASSISTANT Ot Z12.31 ENCNTR SCREEN MAMMOGRAM FOR MALIGNANT [...] LOC OSTEOARTH NOS-L/LEG 09/22/2017 KATLYN SAXENA E GROCERY CLERK SELLING Ot 453.81 ACUTE VENOUS EMBOLISM THROMBOSIS SUPER 09/22/2017 KATLYN SAXENA E GROCERY CLERK SELLING Ot 564.00 UNSPEC CONSTIPATION 09/22/2017 KATLYN SAXENA E GROCERY CLERK SELLING Ot 789.00 ABDOMINAL PAIN, UNSPECIFIED SITE 09/22/2017 [...] SLEEP APNEA (ADULT) (PEDIATR 09/22/2017 RODY GARCIA GROCERY CLERK SELLING Ot J98.4 OTHER DISORDERS OF LUNG 09/22/2017 RODY GARCIA GROCERY CLERK SELLING Ot R06.02 SHORTNESS OF BREATH 09/22/2017 RODY GARCIA GROCERY CLERK SELLING Ot R09.02 HYPOXEMIA 09/22/2017 RODY GARCIA GROCERY CLERK SELLING Ot D64.9 ANEMIA, UNSPECIFIED 09/22/2017 HELIO CAICEDO [...] CHRONIC KIDNEY DISEASE, STAGE 3 (MODERAT 09/22/2017 BTEH HINES, JAZMIN R Ot R60.9 EDEMA, UNSPECIFIED [...] 715.36 LOC OSTEOARTH NOS-L/LEG 09/29/2017 KATLYN SAXENA GROCERY CLERK SELLING Ot 453.81 ACUTE VENOUS EMBOLISM THROMBOSIS SUPER 09/29/2017 KATLYN SAXENA GROCERY CLERK SELLING Ot 564.00 UNSPEC CONSTIPATION 09/29/2017 KATLYN SAXENA E GROCERY CLERK SELLING Ot 789.00 ABDOMINAL PAIN, UNSPECIFIED SITE 09/29/2017 [...] OF BILATERAL GARCIA 09/29/2017 BRODERICK CHELSY Janneth LIAISON INSPECTION LABORATORY ASSISTANT Ot Z12.31 ENCNTR SCREEN MAMMOGRAM FOR MALIGNANT [...] KIDNEY DISEASE, STAGE 3 (MODERAT 09/29/2017 JAZMIN CAMPSO MD Ot R60.9 EDEMA, UNSPECIFIED 09/29/2017 RANDY [...] MD Ot I25.10 ATHSCL HEART DISEASE OF [place] CORONARY 10/06/2017 LUCILA GRACE MD Ot 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 10/06/2017 LUCILA GRACE MD, Ot J44.9 CHRONIC OBSTRUCTIVE PULMONARY DISEASE, U 10/06/2017 LUCILA GRAEC MD Ot Z11.2 ENCOUNTER FOR SCREENING FOR OTHER BACTER 10/06/2017 LUCILA GRACE MD Ot Z86.718 PERSONAL HISTORY OF OTHER VENOUS THROMBO 10/07/2017 LUCILA GRACE MD Ot E78.5 HYPERLIPIDEMIA, UNSPECIFIED 10/07/2017 LUCILA GRACE MD Ot I10 ESSENTIAL (PRIMARY) HYPERTENSION 10/07/2017 LUCILA GRACE MD Ot I25.10 ATHSCL HEART DISEASE OF [place] CORONARY 10/07/2017 LUCILA GRACE MD Ot I65.23 [...] CHRONIC OBSTRUCTIVE PULMONARY DISEASE, U 10/22/2017 RANDY NORMNA Ot R06.02 SHORTNESS OF BREATH 10/22/2017 RANDY NORMAN Ot J44.9 CHRONIC OBSTRUCTIVE PULMONARY DISEASE, U 10/22/2017 RANDY NORMAN Ot R06.02 SHORTNESS OF BREATH 10/28/2017 RANDY NORMAN Ot J44.9 CHRONIC OBSTRUCTIVE PULMONARY DISEASE, U 10/28/2017 RANDY NORAMN Ot R06.02 SHORTNESS OF BREATH 11/09/2017 ARNDY NORMAN Ot J44.9 CHRONIC OBSTRUCTIVE PULMONARY DISEASE, U 11/09/2017 RANDY NORMAN Ot R06.02 SHORTNESS OF BREATH 11/09/2017 RANDY NORMAN Ot J44.9 CHRONIC OBSTRUCTIVE PULMONARY DISEASE, U 11/09/2017 CRISTEL CAMARILLO, RANDY Oscar Ot R06.02 SHORTNESS OF BREATH 12/24/2017 ALICIA DO, ALBIN K Ot A41.9 SEPSIS, UNSPECIFIED ORGANISM 12/24/2017 ALICIA DO, ALBIN K Ot D64.9 ANEMIA, UNSPECIFIED 12/24/2017 ALICIA DO, ALBIN K Ot E11.10 TYPE 2 DIABETES MELLITUS WITH KETOACIDOS 12/24/2017 ALICIA DO, ALBIN K Ot E11.22 TYPE 2 DIABETES MELLITUS W DIABETIC ELECTROLYSIS ENGINEER 12/24/2017 ALICIA DO, ALBIN K Ot E78.00 PURE HYPERCHOLESTEROLEMIA, UNSPECIFIED 12/24/2017 ALICIA DO, ALBIN K Ot E87.2 ACIDOSIS 12/24/2017 ALICIA DO, ALBIN K Ot E87.5 HYPERKALEMIA 12/24/2017 ALICIA DO, ALBIN K Ot F32.9 MAJOR DEPRESSIVE DISORDER, SINGLE EPISOD 12/24/2017 ALICIA DO ALBIN K Ot F41.9 ANXIETY DISORDER, UNSPECIFIED 12/24/2017 ALICIA DO ALBIN K Ot G47.9 SLEEP DISORDER, UNSPECIFIED 12/24/2017 ALICIA DO, ALBIN K Ot I10 ESSENTIAL (PRIMARY) HYPERTENSION 12/24/2017 ALICIA DO, ALBIN K Ot J44.9 CHRONIC OBSTRUCTIVE PULMONARY DISEASE, U 12/24/2017 ALICIA DO ALBIN K Ot N17.9 ACUTE KIDNEY FAILURE, UNSPECIFIED 12/24/2017 ALICIA DO, ALBIN K Ot N18.9 CHRONIC KIDNEY DISEASE, UNSPECIFIED 12/24/2017 ALICIA DO, ALBIN K Ot R41.82 ALTERED MENTAL STATUS, UNSPECIFIED 12/24/2017 ALICIA DO ALBIN K Ot R65.20 SEVERE SEPSIS WITHOUT SEPTIC SHOCK 12/24/2017 ALICIA DO ALBIN K Ot Z79.4 LONGTERM (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 OF INSULIN 12/24/2017 ALICIA DO ALBIN K Ot Z79.82 LONGTERM (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 OF ASPIRIN 12/24/2017 ALICIA DO ALBIN K Ot Z87.19 PERSONAL HISTORY OF OTHER DISEASES OF TH 12/24/2017 ALICIA DO ALBIN K Ot Z87.828 PERSONAL HISTORY OF OTH (HEALED) PHYSICA 12/24/2017 ALICIA DONENAA K Ot Z88.0 ALLERGY STATUS TO PENICILLIN 12/24/2017 ALICIA DO ALBIN Dayne Ot Z88.8 ALLERGY STATUS TO OTH DRUG/MEDS/BIOL SUB 12/24/2017 ALICIA ALBIN K Ot Z90.710 ACQUIRED ABSENCE OF BOTH CERVIX AND UTER 12/24/2017 ALICIA ALBIN Dayne Ot A41.9 SEPSIS, UNSPECIFIED ORGANISM 12/24/2017 ALICIA ALBIN K Ot D64.9 ANEMIA, UNSPECIFIED 12/24/2017 ALICIA DO ALBIN K Ot E11.10 TYPE 2 DIABETES MELLITUS WITH KETOACIDOS 12/24/2017 ALICIA DO ALBIN K Ot E11.22 TYPE 2 DIABETES MELLITUS W DIABETIC ELECTROLYSIS ENGINEER 12/24/2017 ALICIA DO ALBIN Dayne Ot E78.00 PURE HYPERCHOLESTEROLEMIA, UNSPECIFIED 12/24/2017 ALICIA DO ALBIN K Ot E87.2 ACIDOSIS 12/24/2017 ALICIA DO ALBIN K Ot E87.5 HYPERKALEMIA 12/24/2017 ALICIA DO ALBIN K Ot F32.9 MAJOR DEPRESSIVE DISORDER, SINGLE EPISOD 12/24/2017 ALICIA DO ALBIN K Ot F41.9 ANXIETY DISORDER, UNSPECIFIED 12/24/2017 ALICIA DO ALBIN K Ot G47.9 SLEEP DISORDER, UNSPECIFIED 12/24/2017 ALICIA DO ALBIN K Ot I10 ESSENTIAL (PRIMARY) HYPERTENSION 12/24/2017 ALICIA ALBIN Dayne Ot J44.9 CHRONIC OBSTRUCTIVE PULMONARY DISEASE, U 12/24/2017 ALICIA DO ALBIN K Ot N17.9 ACUTE KIDNEY FAILURE, UNSPECIFIED 12/24/2017 ALICIA DO ALBIN K Ot N18.9 CHRONIC KIDNEY DISEASE, UNSPECIFIED 12/24/2017 ALICIA DO ALBIN K Ot R41.82 ALTERED MENTAL STATUS, UNSPECIFIED 12/24/2017 ALICIA DO ALBIN K Ot R65.20 SEVERE SEPSIS WITHOUT SEPTIC SHOCK 12/24/2017 ALICIA DO ALBIN K Ot Z79.4 LONGTERM (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 OF INSULIN 12/24/2017 ALICIA NENA NOONANA K Ot Z79.82 DIRECTOR [employer] (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 OF 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 12/24/2017 LAICIA DO ALBIN K Ot Z87.19 PERSONAL HISTORY OF OTHER DISEASES OF TH 12/24/2017 ALBIN VARGAS DO Ot Z87.828 PERSONAL HISTORY OF OTH (HEALED) PHYSICA 12/24/2017 ALBIN VARGAS DO Ot Z88.0 ALLERGY STATUS TO PENICILLIN 12/24/2017 ALBIN VARGAS DO Ot Z88.8 ALLERGY STATUS TO OTH DRUG/MEDS/BIOL SUB 12/24/2017 ALBIN VARGAS DO Ot Z90.710 ACQUIRED ABSENCE OF BOTH CERVIX AND UTER Procedures Code Description [place] [address] MAMMOGRAM DX, RIGHT 04/22/2012 43505 A1C (IN-HOUSE) 07/19/2012 84868 JOINT INJECTION- LARGE JOINT (SPECIFY MEDCIN DESCRIPTION) 08/02/2012 57906 ROUTINE VENIPUNCTURE 11/10/2012 01119 JOINT INJECTION- LARGE JOINT (SPECIFY MEDCIN DESCRIPTION) 11/10/2012 99375 MAMMOGRAM DX, RIGHT 11/10/2012 78029 CMP 11/10/2012 30516 LIPID PANEL 11/10/2012 9993865 GFR CALC (RESULT ONLY) 11/10/2012 02312 CBC 11/10/2012 00679 A1C (IN-HOUSE) 12/06/2012 24711 MICRO ALBUMIN-IN HOUSE 12/06/2012 55013 ROUTINE VENIPUNCTURE 01/03/2013 32053 XRAY LUMBAR SPINE MIN 4 VIEWS 01/03/2013 60334 XRAY KNEE RIGHT 3 VIEWS 01/03/2013 85377 BMP 01/03/2013 43520 ROUTINE VENIPUNCTURE 02/10/2013 71911 JOINT INJECTION- LARGE JOINT (SPECIFY MEDCIN DESCRIPTION) 02/10/2013 86779 BMP 02/10/2013 Nephrolog Gregorio Young 02/10/2013 98466 ROUTINE VENIPUNCTURE 02/20/2013 17001 RENAL PROFILE 02/20/2013 36838 CBC 02/20/2013 39080 CULTURE URINE 02/20/2013 PRO/CRE URINE PROTEIN TO CREATNINE RATIO 02/20/2013 40255 ROUTINE VENIPUNCTURE 03/20/2013 12886 CMP 03/20/2013 00292 BNP 03/20/2013 31617 CULTURE URINE 03/20/2013 91845 A1C (IN-HOUSE) 03/20/2013 77785 UA LONG DIP 03/20/2013 66523 ROUTINE VENIPUNCTURE 2013 45657 RENAL PROFILE 2013 63214 CBC 2013 PRO/CRE URINE PROTEIN TO CREATNINE RATIO 2013 Jay Carreon 04/11/2013 22890 XRAY ABDOMEN 2 VIEWS 04/19/2013 04252 VENOUS DOPPLER UNILATERAL/ LIMITED 04/26/2013 69746 VENOUS DOPPLER UNILATERAL/ LIMITED 04/26/2013 32440 JOINT INJECTION- LARGE JOINT (SPECIFY MEDCIN DESCRIPTION) 04/27/2013 20246 XRAY ABDOMEN 2 VIEWS 05/08/2013 OrthopYee Hanna 05/25/2013 12309 EKG, TRACING (IN-HOUSE) 06/15/2013 18173 SLEEP STUDY ([facility]- SLEEP STUDY) 07/18/2013 81.54 TOTAL KNEE REPLACEMENT 07/19/2013 57447 JOINT INJECTION- LARGE JOINT (SPECIFY MEDCIN DESCRIPTION) 08/16/2013 94660 ROUTINE VENIPUNCTURE 08/21/2013 24821 GLUCOSE FINGER STICK 08/21/2013 45266 A1C (IN-HOUSE) 08/21/2013 12445 RENAL PROFILE 08/21/2013 15989 A1C (RML) 08/21/2013 27759 CBC 08/21/2013 PRO/CRE URINE PROTEIN TO CREATNINE RATIO 08/21/2013 29347 PULMONARY FUNCTION TEST 10/03/2013 Cardiolog Lucila Grace 10/03/2013 Pulmonary Cornelius Smallwood 12/05/2013 09564 OXIMETRY 01/18/2014 53392 A1C (IN-HOUSE) 01/22/2014 14057 ROUTINE VENIPUNCTURE 03/21/2014 89261 TRIGGER POINT INJ/1-2 MUS 03/21/2014 14897 CMP 03/21/2014 04743 A1C (IN-HOUSE) 05/24/2014 87276 ROUTINE VENIPUNCTURE 07/18/2014 59689 UA LONG DIP 07/18/2014 10362 CMP 07/18/2014 07469 CULTURE URINE 07/18/2014 19060 XRAY ABDOMEN 2 VIEWS 08/17/2014 Results Test [...] culture - 10/17/16 09:20 Bacterial urine culture [id number] NRG COLONY COUNT >100,000/ML NRG FTX;REPORTABLE SENSITIVITY REPORTED AT 1617, 17 NR FREE TEXT ENTRY 3 MIXED GRAM POSITIVE ISAURA NR Bacterial susceptibility panel - 10/17/16 09:20 Gentamicin [...] test by minimum inhibitory concentration - NRG Complete blood count (CBC) with automated [...] culture - 04/21/17 10:26 Bacterial urine culture [id number] NRG COLONY COUNT >100,000/ML NRG FTX;REPORTABLE SENSITIVITY REPORTED AT 1607, 04-22-17 NR URINE CULTURE RESULTS PLUS NR Bacterial susceptibility panel - 04/21/17 10:26 Gentamicin [...] susceptibility test by minimum inhibitory concentration - [facility] Bacterial urine culture - 08/21/17 12:00 URINE CULTURE RESULTS MORE THAN 3 ISOLATES [facility] Automated blood complete blood count (hemogram) panel [...] Staphylococcus aureus (MRSA) screening culture NEG NRG A1C - 12/21/17 12:36 HEMOGLOBIN A1c 8.8 % of total Hgb <5.7 DIFFERENTIAL, MANUAL - 12/21/17 12:36 ABSOLUTE NEUTROPHILS 6283 cells/uL 7600-9020 ABSOLUTE MONOCYTES 824 cells/uL 200-950 ABSOLUTE EOSINOPHILS 515 cells/uL 15-500 ABSOLUTE BASOPHILS 0 cells/uL 0-200 NEUTROPHILS 61 % NRG LYMPHOCYTES 10 % NRG MONOCYTES 8 % NRG EOSINOPHILS 5 % NRG BASOPHILS 0 % NRG ABSOLUTE BAND NEUTROPHILS 1030 cells/uL 0-750 ABSOLUTE METAMYELOCYTES 206 cells/uL ABSOLUTE LYMPHOCYTES 1030 cells/uL 850-3900 BAND NEUTROPHILS 10 % NRG METAMYELOCYTES 2 % NRG PLATELET ESTIMATION ADEQUATE ADEQUATE CBC MORPHOLOGY NORMAL NOTE NRG ABSOLUTE MYELOCYTES 412 cells/uL ABSOLUTE NUCLEATED RBC 103 cells/uL MYELOCYTES 4 % NRG NUCLEATED RBC 1 /100 WBC EXTRA URINE SPECIMEN - 12/21/17 12:36 EXTRA URINE SPECIMEN NRG COMMENT NRG Complete blood count (CBC) with automated white blood cell (WBC) differential - 12/22/17 18:00 Blood leukocytes automated count (number/volume) 16.3 10*3/uL 4.3-11.0 Blood erythrocytes automated count (number/volume) 2.33 10*6/uL 4.35-5.85 Venous blood hemoglobin measurement (mass/volume) 6.1 g/dL 11.5-16.0 Blood hematocrit (volume fraction) 21 % 35-52 Automated erythrocyte mean corpuscular volume 91 [foz_us] 80-99 Automated erythrocyte mean corpuscular hemoglobin (mass per erythrocyte) 26 pg 25-34 Automated erythrocyte mean corpuscular hemoglobin concentration measurement ( mass/volume) 29 g/dL 32-36 Automated erythrocyte distribution width ratio 14.3 % 10.0-14.5 Automated blood platelet count (count/volume) 239 10*3/uL 130-400 Automated blood platelet mean volume measurement 12.7 [foz_us] 7.4-10.4 Automated blood neutrophils/100 leukocytes 86 % 42-75 Automated blood lymphocytes/100 leukocytes 7 % 12-44 Blood monocytes/100 leukocytes 7 % 0-12 Automated blood eosinophils/100 leukocytes 0 % 0-10 Automated blood basophils/100 leukocytes 0 % 0-10 Blood neutrophils automated count (number/volume) 14.0 10*3 1.8-7.8 Blood lymphocytes automated count (number/volume) 1.2 10*3 1.0-4.0 Blood monocytes automated count (number/volume) 1.2 10*3 0.0-1.0 Automated eosinophil count 0.0 10*3/uL 0.0-0.3 Automated blood basophil count (count/volume) 0.0 10*3/uL 0.0-0.1 PT panel in platelet poor plasma by coagulation assay - 12/22/17 18:00 Prothrombin time (PT) in platelet poor plasma by coagulation assay 20.4 s 12.2-14.7 INR in platelet poor plasma or blood by coagulation assay 1.7 0.8-1.4 Activated partial thromboplastin time (aPTT) in platelet poor plasma bycoagulation assay - 12/22/17 18:00 Activated partial thromboplastin time (aPTT) in platelet poor plasma bycoagulation assay 29 s 24-35 Blood lactic acid measurement (moles/volume) - 12/22/17 18:00 Blood lactic acid measurement (moles/volume) 1.71 mmol/L 0.50-2.00 Blood manual differential performed detection - 12/22/17 18:00 Blood monocytes/100 leukocytes 5 % NRG Manual blood segmented neutrophils/100 leukocytes 80 % NRG Blood band neutrophils/100 leukocytes 5 % NRG Manual blood lymphocytes/100 leukocytes 8 % NRG Manual eosinophils/100 leukocytes in nose 0 % NRG Manual blood basophils/100 leukocytes 0 % NRG Manual blood metamyelocytes/100 leukocytes 2 % NRG Blood hypochromia detection by light microscopy SLIGHT [facility] Comprehensive metabolic panel - 12/22/17 18:00 Serum or plasma sodium measurement (moles/volume) 135 mmol/L 135-145 Serum or plasma potassium measurement (moles/volume) 6.8 mmol/L 3.6-5.0 Serum or plasma chloride measurement (moles/volume) 98 mmol/L 98-107 Carbon dioxide 23 mmol/L 21-32 Serum or plasma anion gap determination (moles/volume) 14 mmol/L 5-14 Serum or plasma urea nitrogen measurement (mass/volume) 52 mg/dL 7-18 Serum or plasma creatinine measurement (mass/volume) 4.02 mg/dL 0.60-1.30 Serum or plasma urea nitrogen/creatinine mass ratio 13 NRG Serum or plasma creatinine measurement with calculation of estimated glomerular filtration rate 11 NRG Serum or plasma glucose measurement (mass/volume) 448 mg/dL 70-105 Serum or plasma calcium measurement (mass/volume) 8.5 mg/dL 8.5-10.1 Serum or plasma total bilirubin measurement (mass/volume) 0.5 mg/dL 0.1-1.0 Serum or plasma alkaline phosphatase measurement (enzymatic activity/volume) 131 U/L 40-136 Serum or plasma aspartate aminotransferase measurement (enzymatic activity/ volume) 37 U/L 5-34 Serum or plasma alanine aminotransferase measurement (enzymatic activity/volume ) 27 U/L 0-55 Serum or plasma protein measurement (mass/volume) 6.6 g/dL 6.4-8.2 Serum or plasma albumin measurement (mass/volume) 3.4 g/dL 3.2-4.5 Magnesium - 12/22/17 18:00 Magnesium 2.1 mg/dL 1.8-2.4 Serum or plasma troponin i.cardiac measurement (mass/volume) - 12/22/17 18:00 Serum or plasma troponin i.cardiac measurement (mass/volume) < ng/ mL <0.30 Serum or plasma thyrotropin measurement by detection limit <=0.05 miu/l (units/ volume) - 12/22/17 18:00 Serum or plasma thyrotropin measurement by detection limit <=0.05 miu/l (units/ volume) 1.70 u[iU]/mL 0.35-4.94 Serum or plasma ethanol measurement (mass/volume) - 12/22/17 18:00 Serum or plasma ethanol measurement (mass/volume) < mg/dL <10 Serum or plasma amylase measurement (enzymatic activity/volume) - 12/22/17 18: 00 Serum or plasma amylase measurement (enzymatic activity/volume) 59 U /L 25-125 Lipase - 12/22/17 18:00 Lipase 21 U/L 8-78 Serum or plasma lithium measurement (moles/volume) - 12/22/17 18:00 BNP level 109.2 pg/mL <100.0 Bacterial blood culture - 12/22/17 18:00 Bacterial blood culture NG NRG Capillary blood glucose measurement by glucometer (mass/volume) - 12/22/17 18: 12 Capillary blood glucose measurement by glucometer (mass/volume) 451 mg/dL 70-110 RED CELLS LEUKO REDUCED AS1 - 12/22/17 18:34 RED CELLS LEUKO REDUCED AS1 TRANSFUSED 12/22/17 1333 NRG Blood type T Indirect antibody screen panel - 12/22/17 18:34 ABO+Rh group OP NRG Transfusion band number [id number] NRG Blood group antibody screen NEGATIVE NRG Bacterial blood culture - 12/22/17 18:34 Bacterial blood culture NG NRG Arterial blood gas measurement - 12/22/17 18:45 Blood pCO2 60 mm[Hg] 35-45 Blood pO2 97 mm[Hg] 79-93 Arterial blood bicarbonate measurement (moles/volume) 28 mmol/L 23-27 Arterial blood base excess by calculation 1.2 mmol/L -2.5 -2.5 Arterial blood oxygen saturation measurement 97 % 94-100 * Inhaled oxygen flow rate 3.5L NRG Arterial blood pH measurement with patient temperature correction 7.28 7.37-7.43 Arterial blood carbon dioxide, total measurement (moles/volume) 29.4 mmol/L 21.0-31.0 Body site RT RAD NRG Assessment of wrist artery patency prior to arterial puncture YES- POS NRG Setting of ventilation mode NO NRG Measurement of body temperature 97.2 NRG Urine drug screening test - 12/22/17 18:51 Urine phencyclidine detection by screening method NEGATIVE NEGATIVE Urine benzodiazepines detection by screening method NEGATIVE NEGATIVE Urine cocaine detection NEGATIVE NEGATIVE Urine amphetamines detection by screening method NEGATIVE NEGATIVE Urine methamphetamine detection by screening method NEGATIVE NEGATIVE Urine cannabinoids detection by screening method NEGATIVE NEGATIVE Urine opiates detection by screening method NEGATIVE NEGATIVE Urine barbiturates detection NEGATIVE NEGATIVE Screening urine tricyclic antidepressants detection POSITIVE NEGATIVE Urine methadone detection by screening method NEGATIVE NEGATIVE Urine oxycodone detection NEGATIVE NEGATIVE Urine propoxyphene detection NEGATIVE NEGATIVE Complete urinalysis with reflex to culture - 12/22/17 18:51 Urine color determination YELLOW NRG Urine clarity determination CLEAR NRG Urine pH measurement by test strip 5 5-9 Specific gravity of urine by test strip 1.020 1.016- 1.022 Urine protein assay by test strip, semi-quantitative 2+ NEGATIVE Urine glucose detection by automated test strip NEGATIVE NEGATIVE Erythrocytes detection in urine sediment by light microscopy 1+ NEGATIVE Urine ketones detection by automated test strip NEGATIVE NEGATIVE Urine nitrite detection by test strip NEGATIVE NEGATIVE Urine total bilirubin detection by test strip 2+ NEGATIVE Urine urobilinogen measurement by automated test strip (mass/volume) 1 mg/dL NORMAL Urine leukocyte esterase detection by dipstick 1+ NEGATIVE Automated urine sediment erythrocyte count by microscopy (number/high power field) [HPF] NRG Automated urine sediment leukocyte count by microscopy (number/high power field ) RARE NRG Bacteria detection in urine sediment by light microscopy NEGATIVE NRG Squamous epithelial cells detection in urine sediment by light microscopy 2-5 NRG Crystals detection in urine sediment by light microscopy NONE NRG Casts detection in urine sediment by light microscopy NONE NRG Mucus detection in urine sediment by light microscopy NEGATIVE NRG Complete urinalysis with reflex to culture NO NRG Arterial blood gas measurement - 12/22/17 19:40 Blood pCO2 66 mm[Hg] 35-45 Blood pO2 111 mm[Hg] 79-93 Arterial blood bicarbonate measurement (moles/volume) 26 mmol/L 23-27 Arterial blood base excess by calculation -0.7 mmol/L - 2.5-2.5 Arterial blood oxygen saturation measurement 97 % 94-100 * Inhaled oxygen flow rate 40% BIPAP NRG Arterial blood pH measurement with patient temperature correction 7.22 7.37-7.43 Arterial blood carbon dioxide, total measurement (moles/volume) 28.4 mmol/L 21.0-31.0 Body site RIGHT RADIAL NRG Assessment of wrist artery patency prior to arterial puncture POSITIVE NRG Setting of ventilation mode NO NRG Measurement of body temperature 97.7 NRG Capillary blood glucose measurement by glucometer (mass/volume) - 12/22/17 22: 28 Capillary blood glucose measurement by glucometer (mass/volume) 407 mg/dL 70-110 DIFFERENTIAL, MANUAL - 01/11/18 13:55 ABSOLUTE NEUTROPHILS 7149 cells/uL 8846-7366 ABSOLUTE MONOCYTES 1019 cells/uL 200-950 ABSOLUTE EOSINOPHILS 427 cells/uL 15-500 ABSOLUTE BASOPHILS 87 cells/uL 0-200 NEUTROPHILS 73.7 % NRG LYMPHOCYTES 7.9 % NRG MONOCYTES 10.5 % NRG EOSINOPHILS 4.4 % NRG BASOPHILS 0.9 % NRG ABSOLUTE BAND NEUTROPHILS 87 cells/uL 0-750 ABSOLUTE METAMYELOCYTES 165 cells/uL ABSOLUTE LYMPHOCYTES 766 cells/uL 850-3900 BAND NEUTROPHILS 0.9 % NRG METAMYELOCYTES 1.7 % NRG PLATELET ESTIMATION ADEQUATE ADEQUATE CBC MORPHOLOGY NORMAL NOTE NRG Capillary blood glucose measurement by glucometer (mass/volume) - 01/16/18 05: 30 Capillary blood glucose measurement by glucometer (mass/volume) 139 mg/dL 70-110 Encounters ACCT No. Visit Date/Time Discharge Status Pt. Type Provider Facility Loc./Unit Complaint [id number] 08/16/2014 12:59:00 08/16/2014 23:59:59 CLS Outpatient [facility] KATLYN HARRINGTON [id number] 08/13/2014 08:41:00 08/13/2014 23:59:59 CLS Outpatient BRITT HINES, ROSSY Carl [id number] 07/18/2014 09:33:00 07/18/2014 23:59:59 CLS Outpatient SHAYNA REAL DO [id number] 05/24/2014 10:06:00 05/24/2014 23:59:59 CLS Outpatient SHAYNA REAL DO [id number] 05/24/2014 10:06:00 05/24/2014 23:59:59 CLS Outpatient HELLKATLYN BEE APRN [id number] 03/21/2014 14:22:00 03/21/2014 23:59:59 CLS Outpatient KATLYN SAXENA APRN [id number] 01/22/2014 10:21:00 01/22/2014 23:59:59 CLS Outpatient REAL DOSHAYNA [id number] 01/22/2014 10:21:00 01/22/2014 23:59:59 CLS Outpatient CLINTKATLYN BEE APRN [id number] 10/03/2013 10:51:00 10/03/2013 23:59:59 CLS Outpatient JETHRO SHETH MD [id number] 10/03/2013 10:51:00 10/03/2013 23:59:59 CLS Outpatient JETHRO SHETH MD [id number] 09/13/2013 09:59:00 09/13/2013 23:59:59 CLS Outpatient REAL DOSHAYNA [id number] 08/21/2013 09:18:00 08/21/2013 23:59:59 CLS Outpatient REAL DOSHAYNA [id number] 08/16/2013 10:41:00 08/16/2013 23:59:59 CLS Outpatient REAL DOSHAYNA [id number] 07/18/2013 08:15:00 07/18/2013 23:59:59 CLS Outpatient JAY PARRY MD [id number] 06/14/2013 14:14:00 06/14/2013 23:59:59 CLS Outpatient REAL DOSHAYNA [id number] 05/25/2013 12:36:00 05/25/2013 23:59:59 CLS Outpatient JAY PARRY MD [id number] 05/15/2013 15:37:00 05/15/2013 23:59:59 CLS Outpatient REAL DOSHAYNA [id number] 05/08/2013 15:52:00 05/08/2013 23:59:59 CLS Outpatient REAL DOSHAYNA [id number] 05/03/2013 14:09:00 05/03/2013 23:59:59 CLS Outpatient REAL DOSHAYNA [id number] 04/27/2013 12:47:00 04/27/2013 23:59:59 CLS Outpatient REAL DOSHAYNA [id number] 04/26/2013 10:42:00 04/26/2013 23:59:59 CLS Outpatient REAL DOSHAYNA [id number] 04/19/2013 09:09:00 04/19/2013 23:59:59 CLS Outpatient REAL DOSHAYNA [id number] 04/11/2013 00:00:00 04/11/2013 23:59:59 CLS Outpatient ADDIE DOSHAYNA [id number] 2013 15:25:00 2013 23:59:59 CLS Outpatient ADDIE DOSHAYNA [id number] 03/20/2013 09:23:00 03/20/2013 23:59:59 CLS Outpatient REAL DOSHAYNA [id number] 03/20/2013 09:23:00 03/20/2013 23:59:59 CLS Outpatient REAL DOSHAYNA [id number] 08/02/2012 09:58:00 08/02/2012 23:59:59 CLS Outpatient AIMEE CONKLIN MD [id number] 07/19/2012 09:02:00 07/19/2012 23:59:59 CLS Outpatient [id number] 04/22/2012 14:11:00 04/22/2012 23:59:59 CLS Outpatient AIMEE CONKLIN MD [id number] 04/22/2012 14:11:00 04/22/2012 23:59:59 CLS Outpatient AIMEE CONKLIN MD [id number] 03/01/2013 13:43:00 Document Registration [id number] 02/24/2013 09:53:00 Document Registration [id number] 02/20/2013 10:56:00 Document Registration [id number] 02/10/2013 09:46:00 Document Registration [id number] 01/03/2013 09:22:00 Document Registration [id number] 12/06/2012 15:06:00 Document Registration [id number] 11/10/2012 09:50:00 Document Registration [id number] 09/11/2016 07:06:00 Document Registration [id number] 01/11/2018 13:20:00 01/11/2018 23:59:59 CLS Outpatient EMILEEAMERICORIYA Ortega [facility] [id number] 01/11/2018 13:20:00 Document Registration [id number] 12/21/2017 10:40:00 Document Registration [id number] 06/11/2016 10:06:00 Document Registration [id number] 12/22/2017 17:50:00 12/22/2017 22:49:00 DIS Outpatient ALBIN VARGAS DO [facility] ER SICK 4 DAYS,AMS [id number] 10/06/2017 06:56:00 10/06/2017 14:30:00 DIS Outpatient LUCILA GRACE MD [facility] CATH ABN STRESS [id number] 09/29/2017 07:18:00 09/29/2017 23:59:59 CLS Outpatient RANDY NORMAN [facility] CARD COPD J44.9 [id number] 09/22/2017 11:46:00 09/22/2017 23:59:59 CLS Outpatient RANDY NORMAN [facility] CARD J44.9 COPD [id number] 08/21/2017 11:29:00 08/21/2017 23:59:59 CLS Outpatient JAZMIN CAMPOS MD [facility] LAB HYPERTENSION,CHRONIC KIDNEY DISEASE,DIABETES MELLI [id number] 04/21/2017 10:00:00 04/21/2017 23:59:59 CLS Outpatient JAZMIN CAMPOS MD [facility] LAB I10,N18.3,E11.9,R60.9 [id number] 03/28/2017 11:11:00 03/28/2017 23:59:59 CLS Outpatient OLESYA HINES, CLAUDIA Reece [facility] LAB HTN,CKD STG 4,EDEMA, METABOLIC BONE DISEASE [id number] 01/14/2017 12:28:00 01/14/2017 23:59:59 CLS Outpatient JAZMIN CAMPOS MD [facility] LAB I10,N18.4,R60.9,E88.9 [id number] 12/10/2016 09:18:00 12/10/2016 23:59:59 CLS Outpatient JAZMIN CAMPOS MD [facility] LAB I10,N18.4,R60.9,E88.9 [id number] 10/17/2016 08:37:00 10/17/2016 23:59:59 CLS Outpatient JAZMIN CAMPOS MD [facility] LAB CHRONIC KIDNEY DISEASE [id number] 07/16/2016 10:52:00 07/16/2016 23:59:59 CLS Outpatient JUAN F VILLAFANAChevy DUBOIS [facility] RAD SCREENING FOR BREAST CA [id number] 06/18/2016 11:40:00 06/18/2016 23:59:59 CLS Outpatient RANDY NORMAN [facility] LAB CAROTID ARTERY STENOSIS,HTN [id number] 06/18/2016 11:36:00 06/18/2016 23:59:59 CLS Outpatient HELIO CAICEDO MD [facility] RAD CKD STAGE 4 [id number] 05/19/2016 08:50:00 05/19/2016 23:59:59 CLS Outpatient RANDY NORMAN [facility] LAB HTN, HYPERLIPIDEMIA [id number] 05/13/2016 13:28:00 05/13/2016 23:59:59 CLS Outpatient HELIO CAICEDO MD [facility] LAB CHRONIC KIDNEY DIS STAGE 4,HTN,ANEMIA,EDEMA [id number] 11/22/2015 13:54:00 11/22/2015 23:59:59 CLS Outpatient RODY GARCIA APRN [facility] SDC ANEMIA [id number] 11/21/2015 11:38:00 11/21/2015 23:59:59 CLS Outpatient RODY GARCIA APRN [facility] LAB DVT,SOB,AUBREE, HYPOXEMIA,RESTRICTIVE LUNG DISEASE [id number] 11/15/2015 10:01:00 11/15/2015 23:59:59 CLS Outpatient RANDY NORMAN [facility] LAB HTN, HYPERLIPIDEMIA,CAROTID ARTERY STENOSIS [id number] 11/14/2015 13:54:00 11/14/2015 23:59:59 CLS Outpatient RODY GARCIA APRN [facility] LAB DVT [id number] 11/14/2015 13:49:00 11/14/2015 23:59:59 CLS Outpatient RANDY NORMAN [facility] LAB HTN,CAROTID ARTERY STENOSIS,HYPERLIPIDEMIA [id number] 05/15/2015 11:32:00 05/16/2015 11:10:00 DIS Outpatient LUCILA GRACE MD [facility] CATH CLAUDICATION,PVD,IDDM, HTN,HLP [id number] 05/13/2015 10:21:00 05/13/2015 23:59:59 CLS Outpatient LUCILA GRACE MD [facility] RAD HTN CLAUDICATION CAROTID ARTERY STENOSIS [id number] 05/03/2015 09:37:00 05/03/2015 23:59:59 CLS Outpatient RANDY NORMAN [facility] LAB HTN, CAROTID ARTERY STENOSIS [id number] 01/17/2015 21:19:00 01/21/2015 14:00:00 DIS Inpatient JETHRO SHETH MD [facility] SURGICAL ANASARCA,DYSPNEA, FLUID OVERLOAD, ANEMIA [id number] 11/27/2014 11:31:00 11/27/2014 23:59:59 CLS Outpatient RODY GARCIA APRN [facility] RAD SOB,PE [id number] 08/09/2014 15:00:00 08/09/2014 23:59:59 CLS Preadmit CORNELIUS SMALLWOOD DO [facility] PULM ASTHMA AUBREE [id number] 05/10/2014 14:43:00 08/08/2014 00:01:00 DIS Outpatient CORNELIUS SMALLWOOD DO [facility] PULM ASTHMA AUBREE [id number] 07/23/2014 14:32:00 07/25/2014 14:54:00 DIS Inpatient ROSSY DE LA TORRE MD [facility] 4TH SMALL BOWEL OBSTRUCTION [id number] 05/04/2014 14:14:00 05/04/2014 23:59:59 CLS Outpatient CORNELIUS SMALLWOOD DO [facility] RT ASTHMA AUBREE [id number] 01/10/2014 06:49:00 01/10/2014 13:15:00 DIS Outpatient LUCILA GRACE MD [facility] CATH DYSPNEA,SOB,HLP HTN, IDDM [id number] 12/04/2013 13:23:00 12/26/2013 12:17:00 DIS Outpatient YEE LAFLEUR MD Via [facility] REHAB S/P R TKR [id number] 12/11/2013 18:03:00 12/15/2013 10:15:00 DIS Inpatient CORNELIUS SMALLWOOD DO Via [facility] 4TH DVT [id number] 12/11/2013 12:57:00 12/11/2013 23:59:59 CLS Outpatient CORNELIUS SMALLWOOD DO [facility] CARD RT CALF PAIN,HX DVT, RESP INSUFF,ASTHMA [id number] 12/04/2013 07:08:00 12/04/2013 23:59:59 CLS Outpatient FANNY HINES, LUCILA Velazquez [facility] CARD SOB,HTN,HLP,COPD [id number] 11/01/2013 12:56:00 11/09/2013 09:23:00 DIS Outpatient YEE LAFLEUR MD [facility] REHAB S/P R TKR [id number] 10/23/2013 15:20:00 10/23/2013 23:59:59 CLS Outpatient JETHRO SHETH MD [facility] RT UNEXPLAINED HYPOXIA [id number] 08/10/2013 20:03:00 08/11/2013 08:15:00 DIS Outpatient VELVET LUCERO [facility] SLEEP AUBREE,CHOKING [id number] 07/26/2013 10:30:00 08/03/2013 18:30:00 DIS Inpatient BESS COREAS MD [facility] IRF SEVERE OSTEOARTHRISTIS RIGHT KNEE [id number] 07/19/2013 08:12:00 07/26/2013 10:30:00 DIS Inpatient YEE LAFLEUR MD [facility] SURGICAL SEVERE OSTEOARTHRISTIS RIGHT KNEE [id number] 07/12/2013 09:51:00 07/12/2013 23:59:59 CLS Outpatient YEE LAFLEUR MD [facility] PREOP SEVERE OSTEOARTHRITIS RIGHT KNEE [id number] 06/05/2013 08:15:00 06/05/2013 11:05:00 DIS Outpatient JAY PARRY MD [facility] SDC CONSTIPATION [id number] 05/24/2013 07:35:00 05/24/2013 23:59:59 CLS Outpatient JAY PARRY MD [facility] PREOP CONSTIPATION [id number] 05/09/2013 09:35:00 05/09/2013 23:59:59 CLS Outpatient KATLYN SAXENA GROCERY CLERK SELLING [facility] RAD CONSTIPATON [id number] 04/26/2013 13:20:00 04/26/2013 23:59:59 CLS Outpatient KATLYN SAXENA GROCERY CLERK SELLING [facility] RAD LEFT ARM SWELLING, REDNESS [id number] 04/21/2013 11:54:00 04/24/2013 12:24:00 DIS Inpatient ADDIE DO, SHAYNA K [facility] 4TH N/V [id number] 02/02/2013 16:08:00 02/03/2013 13:18:00 DIS Inpatient DOMENIC HINES, JETHRO Ulloa [facility] 4TH ACUTE RENAL FAILURE [id number] 01/19/2013 10:23:00 01/19/2013 23:59:59 CLS Outpatient AIMEE CONKLIN MD [facility] RAD LBP,HX OF BULLET FRAGMENT IN BACK OR HIP [id number] 11/24/2012 12:08:00 11/24/2012 23:59:59 CLS Outpatient AIMEE CONKLIN MD [facility] RAD 6 MONTH F/U [id number] 01/16/2018 05:38:00 Document Registration [id number] 05/15/2015 11:32:00 Document Registration [id number] 07/24/2014 14:08:00 Document Registration [id number] 05/16/2014 09:57:00 Document Registration [id number] 05/19/2012 10:58:00 Document Registration [id number] 05/12/2012 14:32:00 Document Registration [id number] 01/17/2015 15:38:40 ACT Document Registration
== END 2018-01-16 06:20 | disposition home or self-care (01) ==
LOC: EDUNIT# 03:51 → ER 03:52
DX: M54.16 Radiculopathy, lumbar region (principal); J43.9 Emphysema, unspecified; I25.10 Atherosclerotic heart disease of native coronary artery without angina pectoris; E78.00 Pure hypercholesterolemia, unspecified; I10 Essential (primary) hypertension; E11.51 Type 2 diabetes mellitus with diabetic peripheral angiopathy without gangrene; E11.40 Type 2 diabetes mellitus with diabetic neuropathy, unspecified; F41.9 Anxiety disorder, unspecified; F32.9 Major depressive disorder, single episode, unspecified; D64.9 Anemia, unspecified; Z99.2 Dependence on renal dialysis; Z87.19 Personal history of other diseases of the digestive system; Z86.718 Personal history of other venous thrombosis and embolism; Z86.711 Personal history of pulmonary embolism; Z88.2 Allergy status to sulfonamides; Z88.8 Allergy status to other drugs, medicaments and biological substances; Z79.82 Long term (current) use of aspirin; Z79.4 Long term (current) use of insulin; Z87.891 Personal history of nicotine dependence; Z90.49 Acquired absence of other specified parts of digestive tract; Z90.710 Acquired absence of both cervix and uterus
CPT/HCPCS: 82962; 99281

== ENCOUNTER 2018-02-02 14:17 | Emergency (ER) | payer MEDICARE, MEDICAID ==
[~2018-02-02] VITALS: Ht 149.9 cm; Wt 142.4 kg
[~2018-02-02 14:17] MED LIST changes: +PRD20T PO
[2018-02-02] MEDS ORDERED: RT-ALBUTEROL/IPRATROPIUM 3 ML (DUONEB) VIAL ONE (14:26)
[2018-02-02 15:00] LABS: BASOPHILS % (AUTO) 0 % (0-10); EOSINOPHILS # (AUTO) 0.1 10^3/uL (0.0-0.3); EOSINOPHILS % (AUTO) 1 % (0-10); HEMATOCRIT 27 % (35-52); HEMOGLOBIN 8.2 G/DL (11.5-16.0); LYMPHOCYTES # (AUTO) 0.8 X 10^3 (1.0-4.0); LYMPHOCYTES % (AUTO) 5 % (12-44); MEAN CORPUSCULAR HEMOGLOBIN 27 PG (25-34); MEAN CORPUSCULAR HGB CONC 30 G/DL (32-36); MEAN CORPUSCULAR VOLUME 91 FL (80-99); MEAN PLATELET VOLUME 11.5 FL (7.4-10.4); MONOCYTES % (AUTO) 7 % (0-12); NEUTROPHILS # (AUTO) 13.9 X 10^3 (1.8-7.8); NEUTROPHILS % (AUTO) 88 % (42-75); PLATELET COUNT 247 10^3/uL (130-400); RED CELL DISTRIBUTION WIDTH 16.8 % (10.0-14.5); WHITE BLOOD COUNT 15.8 10^3/uL (4.3-11.0)
[2018-02-02 15:11] LABS: INR 1.9 (0.8-1.4); PROTHROMBIN TIME PATIENT 21.8 SEC (12.2-14.7)
[2018-02-02 15:13] LABS: BILIRUBIN,URINE NEGATIVE (NEGATIVE); CLARITY,URINE CLEAR; COLOR,URINE YELLOW; GLUCOSE, URINE (UA) NEGATIVE (NEGATIVE); KETONES,URINE NEGATIVE (NEGATIVE); LEUKOCYTE ESTERASE ,URINE 1+ (NEGATIVE); NITRITE,URINE NEGATIVE (NEGATIVE); PH,URINE 6 (5-9); PROTEIN,URINE 2+ (NEGATIVE); UROBILINOGEN,URINE NORMAL (NORMAL)
[2018-02-02 15:15] LABS: BAND NEUTROPHILS 0 %; NEUTROPHILS % (MANUAL) 92 %
[2018-02-02 15:16] LABS: ANISOCYTOSIS SLIGHT; EOSINOPHILS % (MANUAL) 1 %; HYPOCHROMASIA SLIGHT; LYMPHOCYTES % (MANUAL) 3 %; MONOCYTES % (MANUAL) 4 %; POLYCHROMASIA SLIGHT
[2018-02-02 15:19] LABS: ALBUMIN 3.4 GM/DL (3.2-4.5); BILIRUBIN,TOTAL 0.7 MG/DL (0.1-1.0); CALCIUM 9.5 MG/DL (8.5-10.1); CREATININE SERUM 3.65 MG/DL (0.60-1.30); TOTAL PROTEIN 6.6 GM/DL (6.4-8.2)
[2018-02-02 15:20] LABS: BACTERIA,URINE NEGATIVE /HPF; SQUAMOUS EPITHELIAL CELL,UR 0-2 /HPF
[2018-02-02 15:21] LABS: POTASSIUM 6.5 MMOL/L (3.6-5.0)
--- NOTE | 2018-02-02 15:31 | Diagnostic Imaging Report ---
INDICATION: Shortness of air. TIME OF EXAMINATION: 3:18 PM. COMPARISON: 12/22/2017. FINDINGS: The heart is enlarged but stable. There appears to be central congestion but no overt failure is detected. No definite effusion or pneumothorax is seen. IMPRESSION: Cardiomegaly and central congestion. Dictated by: Dictated on workstation # [id number]
[2018-02-02] MEDS ORDERED: MEROPENEM 1,000 MG in NS (IVPB) 100 ML IV ONE (16:00)
--- NOTE | 2018-02-02 16:07 | ED General ---
General Chief Complaint: Respiratory Problems Stated Complaint: ARF,POSS GI BLEED Nursing Triage Note: PATIENT HERE BY EMS FOR RENAL FAILURE AND HYPOXIA FROM [facility] Nursing Sepsis Screen: Possible Sepsis Risk Source of Information: Patient, EMS, Family, Senior Living Records Exam Limitations: Physical Impairments History of Present Illness Date Seen by Provider: Feb 02, 2018 Time Seen by Provider: 14:18 Initial Comments 67-year-old woman presents to the emergency room around [facility] with primary complaint of renal failure identified on lab work performed this morning. Patient was directed to the emergency room by Dr. Figueroa (waxing machine operator ) because of the lab values. Apparently in route patient developed respiratory failure. EMS reported a pulse ox of 85 percent. On assessment in the ER her oxygen saturation was in the 60s and she was not moving air very well. She was immediately placed on BiPAP, oxymask, and provided a DuoNeb treatment. Patient does have a history of renal failure and has been followed by Dr. Figueroa. Family also notes that patient was admitted at [facility] in December and required some dialysis. She was not discharged on dialysis however. History has been pieced together as more information has become available from and as patient has become more alert. Patient felt febrile upon arrival although she did not measure a fever with the thermometer. Sepsis was suspected and septic protocol was followed. Allergies and Home Medications Allergies Coded Allergies: Sulfa (Sulfonamide Antibiotics) (Verified Allergy, Unknown, 12/11/13) insulin aspart (Unverified Adverse Reaction, Mild, NAUSEA, 07/24/14) Patient has been administered Humalog on multiple occasions without it causing Nausea, pt. is able to take while inpatient Uncoded Allergies: plastic like plastic tape (Allergy, Intermediate, rash, 02/02/13) PCN (Allergy, Unknown, 12/11/13) Home Medications Albuterol 8.5 Gm Hfa.aer.ad, 2 PUFF IH Q4H PRN for SHORTNESS OF BREATH, ( Reported) Allopurinol 100 Mg Tablet, 100 MG PO DAILY, (Reported) Apixaban 5 Mg Tablet, 5 MG PO BID, (Reported) Ascorbic Acid 250 Mg Tab.chew, 500 MG PO HS, (Reported) Aspirin 81 Mg Tablet.dr, 81 MG PO DAILY, (Reported) Atorvastatin Calcium 40 Mg Tablet, 40 MG PO DAILY, (Reported) Biotin 1,000 Mcg Tablet, 1,000 MCG PO DAILY, (Reported) Diphenhydramine HCl 25 Mg Tablet, 25 MG PO PRN PRN for allergies, (Reported) Fexofenadine HCl 60 Mg Tablet, 60 MG PO DAILY PRN for ALLERGIES, (Reported) Fluticasone/Salmeterol 1 Each Blst.w.dev, 2 PUFF INH DAILY, (Reported) Gabapentin 600 Mg Tablet, 600 MG PO TID, (Reported) Insulin Aspart 100 Unit/1 Ml Susp, 50 UNIT SQ AC, (Reported) Insulin Degludec 100 Unit/1 Ml Insuln.pen, 104 UNIT SQ DAILY, (Reported) Liraglutide 0.6 Mg/0.1 Ml Pen.injctr, 1.8 MG SQ DAILY, (Reported) Losartan Potassium 100 Mg Tablet, 100 MG PO DAILY, (Reported) Melatonin 10 Mg Tablet, 20 MG PO HS, (Reported) Milnacipran HCl 100 Mg Tablet, 100 MG PO BID, (Reported) Multivitamin 1 Each Tablet, 1 TAB PO HS, (Reported) [place] 3 Polyunsat Fatty Acids 1,000 Mg Cap, 1,000 MG PO DAILY, (Reported) [place] 3 Polyunsat Fatty Acids 1,000 Mg Cap, 2,000 MG PO HS, (Reported) Pantoprazole Sodium 40 Mg Tablet.dr, 40 MG PO DAILY, (Reported) Prednisone 20 Mg Tab, 40 MG PO DAILY Prescribed by: MEAGHAN THOMAS on 01/16/18 0523 Quetiapine Fumarate 50 Mg Tablet, 50 MG PO HS, (Reported) Soy Isofla/Blk Cohosh/Mag Bark 155 Mg Capsule, 155 MG PO DAILY, (Reported) Sucralfate 1 Gm Tablet, 1 GM PO BID, (Reported) Torsemide 20 Mg Tablet, 20 MG PO DAILY, (Reported) Tramadol HCl 50 Mg Tablet, 50 MG PO Q8H PRN for PAIN-MILD, (Reported) Trazodone Hcl 150 Mg Tablet, 150 MG PO HS, (Reported) Venlafaxine HCl 150 Mg Cap.er.24h, 150 MG PO DAILY, (Reported) Verapamil HCl 240 Mg Tablet.er, 240 MG PO DAILY, (Reported) Patient Home Medication List Home Medication List Reviewed: Yes Review of Systems Constitutional: see HPI EENTM: no symptoms reported Respiratory: see HPI Cardiovascular: see HPI Gastrointestinal: no symptoms reported Genitourinary: see HPI : No Musculoskeletal: no symptoms reported Skin: no symptoms reported Psychiatric/Neurological: No Symptoms Reported Hematologic/Lymphatic: No Symptoms Reported Immunological/Allergic: no symptoms reported Past Vqcfhwk-Urzujd-Kfqpoi Hx Past Med/Social Hx: Reviewed Nursing Past Med/Soc Hx Patient Social History Alcohol Use: Denies Use Recreational Drug Use: No Smoking Status: Former Smoker Type Used: Cigarettes 2nd Hand Smoke Exposure: No Recent Foreign Travel: No Contact w/Someone Who Travel: No Recent Infectious Disease Expo: No Recent Hopitalizations: No Physical Abuse: No Sexual Abuse: No Immunizations Up To Date Tetanus Booster (TDap): Unknown Date of Pneumonia Vaccine: Apr 04, 2005 Date of Influenza Vaccine: Apr 04, 2015 Past Medical History Surgeries: Yes Abdominal, Appendectomy, Bowel Surgery, Cardiac, Gallbladder, Hysterectomy, Joint Replacement, Oophorectomy, Orthopedic Respiratory: Yes (O2 /CPAP AT HS; CHRONIC DYSPNEA ON EXERTION; MULTIPLE P.E.'S ) Asthma, Chronic Bronchitis, Pulmonary Embolism, Sleep Apnea, COPD Currently Using CPAP: Yes Cardiac: Yes (CAROTID DISEASE; PAD/PVD; NON-OBSTRUCTIVE CAD; MULTIPLE DVT'S AND P.E.'S) Chronic Edema/Swelling, Coronary Artery Disease, Deep Vein Thrombosis, High Cholesterol, Hypertension, Peripheral Vascular Neurological: Yes (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 OBESITY) Diabetes, Insulin dep HEENT: No Loss of Vision: Denies Hearing Impairment: Denies Cancer: No Psychosocial: Yes Sleep Difficulties, Anxiety, Depression Nursing Suicide Risk Score: 0 Integumentary: Yes Psoriasis Blood Disorders: Yes (CHRONIC ANEMIA, DVT/PE) Adverse Reaction/Blood Tranf: No Family Medical History Reviewed Nursing Family Hx Cataract 03 MOTHER Family history: Arthritis 03 MOTHER Family history: Asthma 09 BROTHER Family history: Diabetes mellitus 09 BROTHER Headache 09 SISTER History of - respiratory disease 09 BROTHER No Family History of: Abdominal aortic aneurysm Cancer Cystic fibrosis Family history: Alzheimer's disease Family history: Breast disease Family history: Cardiovascular disease Family history: Gastrointestinal disease Family history: Hypertension Family history: Thyroid disorder Kidney disease Myocardial infarction Psychotic disorder No Pertinent Family Hx Physical Exam-Suspected Sepsis Physical Exam Vital Signs Vital Signs - First Documented 02/02/18 14:20 Temp 100.5 Pulse 100 Resp 22 B/P (MAP) 160/108 (125) Pulse Ox 90 O2 Delivery OxyMask O2 Flow Rate 10.00 Capillary Refill : Less Than 3 Seconds Blood Pressure Mean: 125 Height, Weight, BMI Height: 4'11.00" Weight: 314lbs. 0oz. [id number]; 61.7 BMI Method:Stated General Appearance: WD/WN, Moderate Distress, Obese HEENT: PERRL/EOMI, Normal ENT Inspection Neck: Normal Inspection Respiratory: Accessory Muscle Use, Decreased Breath Sounds, Respiratory Distress Cardiovascular: Regular Rate, Rhythm, No Murmur Gastrointestinal: Non Tender, Soft Extremity: Pedal Edema, Swelling, Other (lower extremities wrapped with Cosmo wraps. Cosmo wraps were taken down and no wounds or ulcers were seen under the wraps. Skin was intact.) Neurologic/Psychiatric: No Motor/Sensory Deficits, bin filler II-XII Norm as Tested, Other (patient was initially hypersomnolent and not able to provide a good history. However, this improved with time and she became alert and oriented after being placed on BiPAP) Skin: normal color, warm/dry Focused Exam Lactate Level 02/02/18 14:45: Lactic Acid Level 0.70 Lactic Acid Level Progress/Results/Core Measures Suspected Sepsis Recent Fever Within 48 Hours: No Infection Criteria Present: Suspected New Infection New/Unexplained Altered Menta: No Sepsis Screen: Possible Sepsis Risk SIRS Temperature:100.5 Pulse: 106 Respiratory Rate: 24 Laboratory Tests 02/02/18 14:45: White Blood Count 15.8H Blood Pressure 160 /108 Mean: 125 02/02/18 14:45: Lactic Acid Level 0.70 Laboratory Tests 02/02/18 14:45: Creatinine 3.65H, INR Comment 1.9H, Platelet Count 247, Total Bilirubin 0.7 Results/Orders Lab Results Laboratory Tests Test 02/02/18 14:45 02/02/18 15:03 02/02/18 17:28 02/02/18 17:42 Range/Units White Blood Count 15.8 H 4.3-11.0 10^3/uL Red Blood Count 3.00 L 4.35-5.85 10^6/uL Hemoglobin 8.2 L 11.5-16.0 G/DL Hematocrit 27 L 35-52 % Mean Corpuscular Volume 91 80-99 FL Mean Corpuscular Hemoglobin 27 25-34 PG Mean Corpuscular Hemoglobin Concent 30 L 32-36 G/DL Red Cell Distribution Width 16.8 H 10.0-14.5 % Platelet Count 247 130-400 10^3/uL Mean Platelet Volume 11.5 H 7.4-10.4 FL Neutrophils (%) (Auto) 88 H 42-75 % Lymphocytes (%) (Auto) 5 L 12-44 % Monocytes (%) (Auto) 7 0-12 % Eosinophils (%) (Auto) 1 0-10 % Basophils (%) (Auto) 0 0-10 % Neutrophils # (Auto) 13.9 H 1.8-7.8 X 10^3 Lymphocytes # (Auto) 0.8 L 1.0-4.0 X 10^3 Monocytes # (Auto) 1.0 0.0-1.0 X 10^3 Eosinophils # (Auto) 0.1 0.0-0.3 10^3/uL Basophils # (Auto) 0.0 0.0-0.1 10^3/uL Neutrophils % (Manual) 92 % Lymphocytes % (Manual) 3 % Monocytes % (Manual) 4 % Eosinophils % (Manual) 1 % Band Neutrophils 0 % Polychromasia SLIGHT Hypochromasia SLIGHT Anisocytosis SLIGHT Prothrombin Time 21.8 H 12.2-14.7 SEC INR Comment 1.9 H 0.8-1.4 Activated Partial Thromboplast Time 47 H 24-35 SEC Sodium Level 129 L 135-145 MMOL/L Potassium Level 6.5 *H 3.6-5.0 MMOL/L Chloride Level 90 L 98-107 MMOL/L Carbon Dioxide Level 32 21-32 MMOL/L Anion Gap 7 5-14 MMOL/L Blood Urea Nitrogen 80 H 7-18 MG/DL Creatinine 3.65 H 0.60-1.30 MG/DL Estimat Glomerular Filtration Rate 12 BUN/Creatinine Ratio 22 Glucose Level 183 H 70-105 MG/DL Lactic Acid Level 0.70 0.50-2.00 MMOL/L Calcium Level 9.5 8.5-10.1 MG/DL Total Bilirubin 0.7 0.1-1.0 MG/DL Aspartate Amino Transf (AST/SGOT) 37 H 5-34 U/L Alanine Aminotransferase (ALT/SGPT) 34 0-55 U/L Alkaline Phosphatase 192 H 40-136 U/L Troponin I < 0.30 <0.30 NG/ML B-Type Natriuretic Peptide 398.0 H <100.0 PG/ML Total Protein 6.6 6.4-8.2 GM/DL Albumin 3.4 3.2-4.5 GM/DL Urine Color YELLOW Urine Clarity CLEAR Urine pH 6 5-9 Urine Specific [place] 1.015 L 1.016-1.022 Urine Protein 2+ H NEGATIVE Urine Glucose (UA) NEGATIVE NEGATIVE Urine Ketones NEGATIVE NEGATIVE Urine Nitrite NEGATIVE NEGATIVE Urine Bilirubin NEGATIVE NEGATIVE Urine Urobilinogen NORMAL NORMAL MG/DL Urine Leukocyte Esterase 1+ H NEGATIVE Urine RBC (Auto) NEGATIVE NEGATIVE Urine RBC NONE /HPF Urine WBC NONE /HPF Urine Squamous Epithelial Cells 0-2 /HPF Urine Crystals NONE /LPF Urine Bacteria NEGATIVE /HPF Urine Casts NONE /LPF Urine Mucus NEGATIVE /LPF Urine Culture Indicated NO Glucometer 150 H 70-110 MG/DL Blood Gas Puncture Site LEFT RADIAL Blood Gas Patient Temperature 99.6 Arterial Blood pH 7.38 7.37-7.43 Arterial Blood Partial Pressure CO2 61 H 35-45 MMHG Arterial Blood Partial Pressure O2 296 H 79-93 MMHG Arterial Blood HCO3 35 H 23-27 MMOL/L Arterial Blood Total CO2 36.7 H 21.0-31.0 MMOL/L Arterial Blood Oxygen Saturation 100 94-100 % Arterial Blood Base Excess 9.6 H -2.5-2.5 MMOL/L Iker Test POSITIVE Blood Gas Ventilator Setting NO Blood Gas Inspired Oxygen 80% BIPAP Test 02/02/18 18:23 Range/Units Glucometer 153 H 70-110 MG/DL Micro Results Microbiology 02/02/18 Urine Culture - Preliminary, Resulted Sent To [facility] My Orders Orders - ARBEN ISSA MD Contreras Cath (02/02/18 14:23) Cbc With Automated Diff (02/02/18 14:23) Comprehensive Metabolic Panel (02/02/18 14:23) Blood Culture (02/02/18 14:23) Sputum Culture (02/02/18 14:23) Urinalysis (02/02/18 14:23) Urine Culture (02/02/18 14:23) Protime With Inr (02/02/18 14:23) Partial Thromboplastin Time (02/02/18 14:23) Chest 1 View, Ap/Pa Only (02/02/18 14:23) Saline Lock/Iv-Start (02/02/18 14:23) Saline Lock/Iv-Start (02/02/18 14:23) Vital Signs Adult Sepsis Patie Q15M (02/02/18 14:23) O2 (02/02/18 14:23) Remove Rings In Anticipation O (02/02/18 14:23) Lactic Acid Analyzer (02/02/18 14:23) BNP (02/02/18 14:23) Albuterol/Ipra Inhalation Soln (Duoneb I (02/02/18 14:26) Manual Differential (02/02/18 14:45) Meropenem (Merrem 1000 Mg) (02/02/18 16:00) Ekg Tracing (02/02/18 15:56) Monitor-Rhythm Ecg Trace Only (02/02/18 15:56) Calcium Gluconate 10% Inj (Calcium Gluco (02/02/18 16:30) Insulin (Regular) Human (Humulin R (Per (02/02/18 16:30) Furosemide Injection (Lasix Injection) (02/02/18 16:30) Sodium Polystyrene Sulfonate (Kayexalate (02/02/18 16:30) Acetaminophen Tablet (Tylenol Tablet) (02/02/18 17:00) Acetaminophen Tablet (Tylenol Tablet) (02/02/18 16:49) Albuterol/Ipra Inhalation Soln (Duoneb I (02/02/18 17:00) Svn Small Volume Nebulizer (02/02/18 16:52) Saline Lock/Iv-Start (02/02/18 16:52) Ns Iv 1000 Ml (Sodium Chloride 0.9%) (02/02/18 16:52) Troponin I (02/02/18 17:03) Arterial Blood Gas (02/02/18 17:42) Methylprednisolone Sod Succ (Solu-Medrol (02/02/18 18:15) Accucheck Stat ONCE (02/02/18 18:11) Accucheck Stat ONCE (02/02/18 18:12) Medications Given in ED Current Medications Medications Dose Ordered Sig/Bhargavi Route Start Time Stop Time Status Last Admin Dose Admin Acetaminophen 1,000 mg ONCE ONCE PO 02/02/18 17:00 02/02/18 17:01 DC 02/02/18 16:54 1,000 MG Albuterol/ Ipratropium 3 ml ONCE ONCE INH 02/02/18 17:00 02/02/18 17:01 DC 02/02/18 16:57 3 ML Albuterol/ Ipratropium 3 ml STK-MED ONCE .ROUTE 02/02/18 14:26 02/02/18 14:29 DC 02/02/18 14:45 3 ML Calcium Gluconate 4.65 meq ONCE ONCE IV 02/02/18 16:30 02/02/18 16:31 DC 02/02/18 16:39 4.65 MEQ Furosemide 40 mg ONCE ONCE IVP 02/02/18 16:30 02/02/18 16:31 DC 02/02/18 16:35 40 MG Insulin Human Regular 10 unit ONCE ONCE IV 02/02/18 16:30 02/02/18 16:31 DC 02/02/18 16:43 10 UNIT Meropenem 1000 mg/ Sodium Chloride 100 ml @ 200 mls/hr ONCE ONCE IV 02/02/18 16:00 02/02/18 16:29 DC 02/02/18 16:43 200 MLS/HR Methylprednisolone Sodium Succinate 62.5 mg ONCE ONCE IVP 02/02/18 18:15 02/02/18 18:16 DC 02/02/18 18:09 62.5 MG Sodium Polystyrene Sulfonate 30 gm ONCE ONCE PO 02/02/18 16:30 02/02/18 16:31 DC 02/02/18 16:43 30 GM Vital Signs/I&O 02/02/18 02/02/18 02/02/18 02/02/18 14:20 14:20 14:30 14:38 Temp 100.5 Pulse 100 106 Resp 22 24 B/P (MAP) 160/108 (125) Pulse Ox 90 98 100 O2 Delivery OxyMask OxyMask O2 Flow Rate 10.00 10.00 100.00 80.00 8/1/18 02/02/18 02/02/18 02/02/18 15:48 16:57 18:29 18:55 Temp 100.5 100.5 Pulse 106 95 91 91 Resp 24 20 18 18 B/P (MAP) 160/108 150/70 (125) Pulse Ox 100 97 98 98 O2 Delivery OxyMask O2 Flow Rate 80.00 80.00 80.00 80.00 Capillary Refill : Less Than 3 Seconds Blood Pressure Mean: 125 Progress Note #1: Time: 16:45 Progress Note Patient was immediately placed on BiPAP and given a DuoNeb treatment upon arrival. She had steady improvement of her respiratory status and level of alertness on BiPAP. Respiratory status was stable as long as she remained on BiPAP. Septic workup was pursued. No definite source of infection was identified but pneumonia was suspected. Chest x-ray showed cardiomegaly and congestion. An underlying infiltrate cannot be completely ruled out. Patient did measure a fever of 100.8. Tylenol was given. Meropenem was selected as initial antibiotic after discussion with Dr. Webster, hospitalist at [facility]. Transfer was discussed with patient and her . They selected [facility] as [facility] is where Dr. Figueroa practices. Patient was found to have hyperkalemia along with her renal failure. I discussed electrolyte and fluid management with Dr. Figueroa. She recommended calcium gluconate, Kayexalate, Lasix, and insulin 10 units to be given for treatment of the hyperkalemia. EKG was obtained. The automated read reported acute [place], but I disagree with this finding. EKG was also reviewed by Dr. Larry Figueroa, manager intensive care automotive power electronics engineer at [facility]. He also did not believe this EKG represented [place]. I asked the patient about chest pain. She reported having some chest pain earlier today but now she just has a generalized achiness throughout her body related to the fever. Lasix 40 mg was administered and IV fluids were ordered to run at 100 mL per hour to encourage flushing of the kidneys along with Lasix. Large-volume fluid resuscitation was not administered due to concern for pulmonary edema possibly contributing to her respiratory failure. Patient was doing well on BiPAP but began wheezing and having significant shortness of air any time BiPAP was removed. Case was discussed with Dr. Webster who accepted transfer along with consultation from Dr. Figueroa in nephrology. Progress Note #2: Time: 18:08 Progress Note Patient remains stable on BiPAP. ABG was reviewed and patient had notable hypercarbia. She also had a significantly elevated PO2. PH was normal. Respiratory therapy will titrate her FiO2 down. Solu-Medrol 62.5 mg has been ordered. EMS notified of transfer. [facility] has been updated with negative troponin and Dr. Larry Figueroa's interpretation of EKG. Patient did receive a second DuoNeb treatment after trial off BiPAP. ECG Initial ECG Impression Date: Feb 02, 2018 Initial ECG Impression Time: 16:04 Initial ECG Rate: 97 Initial ECG Rhythm: S.Tach Comment Borderline sinus tachycardia with no diagnostic ST elevation or depression. No abnormal intervals or axis deviation. Diagnostic Imaging Diagonstic Imaging: Xray Plain Films/CT/US/NM/MRI: chest Comments Chest x-ray viewed by me and report reviewed. See report below: NAME: DALTON QUIGLEY [facility] REC#: [id number] PT STATUS: REG ER : 1950 PHYSICIAN: ARBEN ISSA MD ADMIT DATE: 02/02/18/ER Signed Date of Exam: 02/02/18 CHEST 1 VIEW, AP/PA ONLY INDICATION: Shortness of air. TIME OF EXAMINATION: 3:18 PM. COMPARISON: 12/22/2017. FINDINGS: The heart is enlarged but stable. There appears to be central congestion but no overt failure is detected. No definite effusion or pneumothorax is seen. IMPRESSION: Cardiomegaly and central congestion. Dictated by: Dictated on workstation # [id number] Dict: 02/02/18 1526 Trans: 02/02/18 1541 Interpreted by: ALLISON CARTER MD Electronically signed by: ALLISON CARTER MD 02/02/18 1541 Departure Impression Primary Impression: Sepsis Qualified Codes: A41.9 - Sepsis, unspecified organism Additional Impressions: Acute respiratory failure Qualified Codes: J96.01 - Acute respiratory failure with hypoxia Acute on chronic renal failure Qualified Codes: N17.9 - Acute kidney failure, unspecified; N18.9 - Chronic kidney disease, unspecified Acute hyperkalemia COPD exacerbation Other fluid overload Disposition: 02 XFER SHT-TRM HOSP Condition: Improved Transfer Time Spoke to Accepting Phy: 15:50 Transfer Progress Notes Transfer accepted by Dr. Webster at 15:[address] Figueroa, waxing machine operator, at 16:15. Departure-Patient Inst. Decision time for Depature: 18:55 Referrals: [facility] (PCP/Family) Primary Care Physician ARBEN ISSA MD Feb 02, 2018 16:07
[2018-02-02] MEDS ORDERED: SOD POLYSTERENE 15 GM/60 ML (KAYEXALATE) UNIT DOSE PO ONE (16:30)
[2018-02-02] MEDS ORDERED: FUROSEMIDE 40 MG/4 ML INJ (LASIX) IVP ONE (16:30)
[2018-02-02] MEDS ORDERED: CALCIUM GLUC. 10% 4.65 MEQ/10 ML VIAL IV ONE (16:30)
[2018-02-02] MEDS ORDERED: inSUlin (REGULAR) HUMAN 1 UNIT/0.01 ML (CHARGE PER UNIT) IV ONE (16:30)
[2018-02-02] MEDS ORDERED: ACETAMINOPHEN 500 MG TAB (TYLENOL) ONE (16:49)
[2018-02-02] MEDS ORDERED: NS IV 1000 ML 1,000 ML IV SCH (16:52)
[2018-02-02] MEDS ORDERED: ACETAMINOPHEN 500 MG TAB (TYLENOL) PO ONE (17:00)
[2018-02-02] MEDS ORDERED: RT-ALBUTEROL/IPRATROPIUM 3 ML (DUONEB) VIAL INH ONE (17:00)
[2018-02-02 17:51] LABS: ABG BASE EXCESS 9.6 MMOL/L (-2.5-2.5); ABG OXYGEN SATURATION 100 % (94-100); ABG PCO2 61 MMHG (35-45); ABG PH 7.38 (7.37-7.43); ABG PO2 296 MMHG (79-93); ABG TCO2 36.7 MMOL/L (21.0-31.0)
[2018-02-02 17:52] LABS: ALLENS TEST POSITIVE; INSPIRED O2 80% BIPAP; PATIENT TEMP 99.6; VENTILATOR NO
[2018-02-02] MEDS ORDERED: methylPREDNISolone 125 MG (Solu-MEDROL) VIAL IVP ONE (18:15)
[2018-02-02 18:55] VITALS: BP 150/70
== END 2018-02-02 18:55 | disposition short-term general hospital (02) ==
LOC: EDUNIT# 14:17 → ER 14:18
DX: A41.9 Sepsis, unspecified organism (principal); R65.20 Severe sepsis without septic shock; N17.9 Acute kidney failure, unspecified; E87.5 Hyperkalemia; J44.1 Chronic obstructive pulmonary disease with (acute) exacerbation; E87.70 Fluid overload, unspecified; G47.30 Sleep apnea, unspecified; I25.10 Atherosclerotic heart disease of native coronary artery without angina pectoris; E78.00 Pure hypercholesterolemia, unspecified; E66.9 Obesity, unspecified; F41.9 Anxiety disorder, unspecified; F32.9 Major depressive disorder, single episode, unspecified; E11.22 Type 2 diabetes mellitus with diabetic chronic kidney disease; I12.0 Hypertensive chronic kidney disease with stage 5 chronic kidney disease or end stage renal disease; N18.6 End stage renal disease; E11.51 Type 2 diabetes mellitus with diabetic peripheral angiopathy without gangrene; I73.9 Peripheral vascular disease, unspecified; D64.9 Anemia, unspecified; Z88.2 Allergy status to sulfonamides; Z99.2 Dependence on renal dialysis; Z88.0 Allergy status to penicillin; Z79.51 Long term (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 of inhaled steroids; Z79.01 Long term (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 of anticoagulants; Z79.82 Long term (current) use of aspirin; Z79.4 Long term (current) use of insulin; Z79.52 Long term (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 of systemic steroids; Z87.891 Personal history of nicotine dependence; Z90.89 Acquired absence of other organs; Z90.710 Acquired absence of both cervix and uterus; Z86.718 Personal history of other venous thrombosis and embolism
CPT/HCPCS: 36415; 51702; 71045; 80053; 81000; 82805; 82962; 83605; 83880; 84484; 85007; 85027; 85610; 85730; 87040; 87077; 87088; 87186; 93005; 93041; 94640; 94660; 96361; 96365; 96375

== ENCOUNTER 2018-02-13 13:39 | Emergency (ER) | payer MEDICARE, MEDICAID ==
[~2018-02-13] VITALS: Ht 162.6 cm; Wt 148.3 kg
--- OUTSIDE RECORDS SUMMARY | 2018-02-13 13:46 | XMS REPORT ---
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 Name Role Phone CHELSY VILLAFANA Unavailable PROBLEMS Type Condition ICD9-CM Code FTT86-VE Code Onset Dates Condition Status SNOMED Code Problem Chronic kidney disease, stage 4 (severe) N18.4 Active 739642401 Problem Psoriasis of scalp L40.9 Active 442211891 Problem Type 2 diabetes mellitus with hyperglycemia E11.65 Active 584419459954206 Problem Fibromyalgia M79.7 Active 319947009 Problem History of DVT (deep vein thrombosis) Z86.718 Active 492479864 Problem Carpal tunnel syndrome, bilateral G56.03 Active 81536630695615857 Problem Type 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 Active 326002858 Problem Anemia in other chronic diseases classified elsewhere D63.8 Active 086862575 Problem longterm 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 Active 255487080 Problem Paresthesia of right upper extremity R20.2 Active 71795051 Problem Bilateral lower extremity edema R60.0 Active 656388242 Problem Supplemental oxygen dependent Z99.81 Active 538783121426 Problem Sleep apnea in adult G47.33 Active 33067337 Problem Chronic pain syndrome G89.4 Active 663703408 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 Active 890927235 Problem Essential hypertension I10 Active 05665545 Problem Gastroesophageal reflux disease without esophagitis K21.9 Active 742040582 Problem Chronic obstructive pulmonary disease, unspecified COPD type J44.9 Active 05698257 Problem 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 Active 412273701200527 Problem Primary insomnia F51.01 Active 4120079 Problem Oxygen desaturation during sleep G47.34 Active 138437381 Problem Right carpal tunnel syndrome G56.01 Active 034640666201963 Problem Diabetic polyneuropathy associated with type 2 diabetes mellitus E11.42 Active 25137740 Problem Depression, unspecified depression type F32.9 Active 23750386 ALLERGIES No Information ENCOUNTERS Encounter Location Date Diagnosis [facility] [address], [place] [address] Feb, [facility] [address], [place] [address] 9902 Jan, [facility] [address], [place] [address] 6545 Jan, [facility] [address], [place] [address] 3922 Jan, [facility] [id number] [id number] Jan, [facility] [address], [place] [address] 6116 Jan, [facility] [address], [place] [address] 3935 Jan, [facility] [address], [place] [address] 3243 Jan, Essential hypertension I10 [facility] [address], [place] [address] 3503 Jan, Chronic obstructive pulmonary disease, unspecified COPD type J44.9 [facility] [address], [place] [address] 3610 Jan, [facility] [address], [place] [address] 7073 Jan, [facility] [address], [place] [address] 0815 Jan, Type 2 diabetes mellitus with other diabetic kidney complication E11.29 ; Anemia in other chronic diseases classified elsewhere D63.8 ; Chronic obstructive pulmonary disease, unspecified COPD type J44.9 and BMI 60.0-69.9, adult Z68.44 [facility] [address], [place] [address] 1582 Jan, [facility] [address], [place] [address] 3326 Jan, [facility] [id number] [id number] Jan, [facility] [id number] [id number] Dec, [facility] [address] [id number] [id number] Dec, [facility] [id number] [place] [id number] Dec, Essential hypertension I10 ; Type 2 diabetes mellitus with other diabetic kidney complication E11.29 ; Depression, unspecified depression type F32.9 ; Supplemental oxygen dependent Z99.81 ; Chronic pain syndrome G89.4 ; Fibromyalgia M79.7 ; Carpal tunnel syndrome, bilateral G56.03 and Chronic kidney disease, stage 4 (severe) N18.4 [facility] [id number] [place] [address] 43208- 0517 Dec, Essential hypertension I10 [facility] [id number] [place] [address] 39053- 6415 November, Type 2 diabetes mellitus with other diabetic kidney complication E11.29 [facility] [id number] [place] [address] 75564- 5905 November, Chronic pain syndrome G89.4 [facility] [address] [address] 4522 November, [facility] [id number] [place] [address] [id number]- 9056 November, [facility] [id number] [place] [address] 13134- 2066 November, [facility] [id number] [place] [address] 88733- 2816 Oct, Type 2 diabetes mellitus with other diabetic kidney complication E11.29 [facility] [id number] [place] [address] 88910- 3691 Oct, Primary insomnia F51.01 [facility] [address] [id number] [id number] Oct, Bilateral lower extremity edema R60.0 [facility] [address], [place] [address] 6407 Oct, [facility] [address] [place] [address] 73638- 8078 Sep, Type 2 diabetes mellitus with other diabetic kidney complication E11.29 and Chronic obstructive pulmonary disease, unspecified COPD type J44.9 [facility] [address], [place] [address] 2450 15 Aug, 2017 Type 2 diabetes mellitus with other diabetic kidney complication E11.29 [facility] [address], [place] [address] 6751 12 Aug, 2017 Gastroesophageal reflux disease without esophagitis K21.9 ; longterm current use of anticoagulant Z79.01 ; Chronic pain syndrome G89.4 ; Essential hypertension I10 and Type 2 diabetes mellitus with other diabetic kidney complication E11.29 [facility] [address], [place] [address]- 0129 08 Aug, 2017 Chronic pain syndrome G89.4 [facility] [address], [place] [address] 1665 Aug, Type 2 diabetes mellitus with other diabetic kidney complication E11.29 [facility] [address], [place] [address] 7392 Jul, Diabetic polyneuropathy associated with type 2 diabetes mellitus E11.42 [facility] [address], [place] [address] 2852 Jul, Primary insomnia F51.01 [facility] [address], [place] [address]- 2843 Jul, [facility] [address], [place] [address] 1124 14 [place], 2018 Type 2 diabetes mellitus with other diabetic kidney complication E11.29 and Chronic obstructive pulmonary disease, unspecified COPD type J44.9 [facility] [address] [place] [address] 17541- 6966 Jul, Type 2 diabetes mellitus with other diabetic kidney complication E11.29 [facility] [id number] [place] [address] 33043- 0505 Jun, Type 2 diabetes mellitus with other diabetic kidney complication E11.29 [facility] [id number] [place] [address] 54006- 0400 Jun, [facility] [id number] [place] [address] 92843- 5244 Jun, Chronic obstructive pulmonary disease, unspecified COPD type J44.9 [facility] [id number] [place] [address] 98466- 1220 May, Type 2 diabetes mellitus with other diabetic kidney complication E11.29 [facility] [id number] [place] [address] 90582- 7638 May, longterm current use of anticoagulant Z79.01 and Essential hypertension I10 [id number] [place] [address] 91513- 6541 May, Anemia in other chronic diseases classified elsewhere D63.8 ; Chronic obstructive pulmonary disease, unspecified COPD type J44.9 ; Oxygen desaturation during sleep G47.34 ; Sleep apnea in adult G47.33 and Supplemental oxygen dependent Z99.81 [facility] [id number] [place] [address] 21946- 1590 May, Type 2 diabetes mellitus with other diabetic kidney complication E11.29 ; Essential hypertension I10 ; Chronic pain syndrome G89.4 ; BMI 40.0-44.9, adult Z68.41 ; Gastroesophageal reflux disease without esophagitis K21.9 ; longterm current use of anticoagulant Z79.01 ; 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 ; Diabetic polyneuropathy associated with type 2 diabetes mellitus E11.42 ; Edema of both legs R60.0 and Supplemental oxygen dependent Z99.81 [facility] [address] [place] [address] 03929- 4511 May, [facility] [id number] [place] [address] 48107- 6437 May, Essential hypertension I10 and Gastroesophageal reflux disease without esophagitis K21.9 [facility] [id number] [place] [address] 68694- 6502 May, [facility] [id number] [place] [address] 18600- 4901 May, Type 2 diabetes mellitus with other diabetic kidney complication E11.29 and 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 [facility] [id number] [place] [address] 64780- 8153 Apr, Chronic pain syndrome G89.4 and Essential hypertension I10 [facility] [id number] [place] [address] 05266- 0114 Apr, Type 2 diabetes mellitus with other diabetic kidney complication E11.29 [facility] [id number] [place] [address] 96598- 6587 Apr, Type 2 diabetes mellitus with other diabetic kidney complication E11.29 [facility] [id number] [place] [address] 64451- 8786 Apr, Essential hypertension I10 [facility] [id number] [place] [address] 22121- 6795 Apr, Gastroesophageal reflux disease without esophagitis K21.9 [facility] [id number] [place] [address] 22294- 7388 Apr, Type 2 diabetes mellitus with other diabetic kidney complication E11.29 [facility] [id number] [place] [address] 00512- 4205 Apr, Type 2 diabetes mellitus with other diabetic kidney complication E11.29 and 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 [facility] [address] [place] [address] 40784- 8118 Mar, Encounter for immunization Z23 and Preoperative examination Z01.818 [facility] [address] [place] [address] 34194- 8391 Mar, [facility] [id number] [place] [address] 64371- 0395 Mar, Type 2 diabetes mellitus with other diabetic kidney complication E11.29 [facility] [address] 11075- 8749 08 Mar, 2017 Type 2 diabetes mellitus with other diabetic kidney complication E11.29 [facility] [id number] [place] [address] 94105- 0497 06 Mar, 2017 Gastroesophageal reflux disease without esophagitis K21.9 [facility] [id number] [place] [address] 57789- 3261 Mar, Essential hypertension I10 [facility] [address] 72272- 8080 Feb, longterm current use of anticoagulant Z79.01 [facility] [id number] [place] [address] 26862- 8651 Feb, Type 2 diabetes mellitus with other diabetic kidney complication E11.29 [facility] [id number] [place] [address] 99931- 6515 Feb, Type 2 diabetes mellitus with other diabetic kidney complication E11.29 [facility] [id number] [place] [address] 04562- 8546 Feb, Type 2 diabetes mellitus with other diabetic kidney complication E11.29 [facility] [id number] [place] [address] 90169- 4685 Feb, Gastroesophageal reflux disease without esophagitis K21.9 [facility] [id number] [place] [address] 55202- 3220 Feb, Type 2 diabetes mellitus with other diabetic kidney complication E11.29 [facility] [id number] [place] [address] 59913- 8898 Feb, 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 [facility] [address], [place] [address]- 4481 Jan, Type 2 diabetes mellitus with other diabetic kidney complication E11.29 [facility] [address], [place] [address]- 4024 Jan, Type 2 diabetes mellitus with other diabetic kidney complication E11.29 [facility] [address], [place] [address]- 1878 Jan, Chronic pain syndrome G89.4 [facility] [address], [place] [address]- 3557 Jan, [facility] [address] [place] [address]- 5463 Jan, [facility] [address], [place] [address]- 6700 Jan, [facility] [address], [place] [address]- 1829 Jan, [facility] [address], [place] [address]- 8603 Jan, Primary insomnia F51.01 ; Type 2 diabetes mellitus with other diabetic kidney complication E11.29 ; Chronic pain syndrome G89.4 and Essential hypertension I10 [facility] [address], [place] [address]- 5006 Jan, Primary insomnia F51.01 [facility] [address], [place] [address]- 8020 Jan, Type 2 diabetes mellitus with other diabetic kidney complication E11.29 [facility] [address], [place] [address]- 1597 Jan, [facility] [address], [place] [address]- 6616 Jan, Chronic obstructive pulmonary disease, unspecified COPD type J44.9 [facility] [address], [place] [address]- 6686 Jan, Essential hypertension I10 ; Type 2 diabetes mellitus with other diabetic kidney complication E11.29 ; Chronic obstructive pulmonary disease, unspecified COPD type J44.9 ; Chronic kidney disease, stage 4 (severe) N18.4 ; Right carpal tunnel syndrome G56.01 ; 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 ; longterm (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 and Diabetic polyneuropathy associated with type 2 diabetes mellitus E11.42 [facility] [id number] [place] [address] 05313- 8911 Jan, Gastroesophageal reflux disease without esophagitis K21.9 [facility] [id number] [place] [address] 58635- 3469 Dec, [facility] [id number] [place] [address] 06494- 1609 Dec, [facility] [id number] [place] [address] 38128- 4751 Dec, longterm current use of anticoagulant Z79.01 ; Chronic pain syndrome G89.4 and Essential hypertension I10 [facility] [id number] [place] [address] 76181- 8065 Dec, [facility] [id number] [place] [address] 67200- 8398 Dec, Type 2 diabetes mellitus with other diabetic kidney complication E11.29 [facility] [address] [place] [address] 71530- 0191 Dec, [facility] [id number] [place] [address] 89006- 4198 Dec, Gastroesophageal reflux disease without esophagitis K21.9 [facility] [id number] [place] [address] 18506- 7890 November, Type 2 diabetes mellitus with other diabetic kidney complication E11.29 [facility] [id number] [place] [address] 82680- 1185 November, [facility] [address], [place] [address]- 3831 November, Type 2 diabetes mellitus with other diabetic kidney complication E11.29 [facility] [address] [address]- 0406 November, [facility] [id number] [place] [address] 76302- 9276 November, Type 2 diabetes mellitus with other diabetic kidney complication E11.29 [facility] [id number] [place] [address] 71883- 6620 November, [facility] [id number] [place] [address] 79854- 6510 Oct, Essential hypertension I10 [facility] [id number] [place] [address] 08455- 4214 Oct, Psoriasis of scalp L40.9 [facility] [id number] [place] [address] 93836- 3422 Oct, Essential hypertension I10 and Chronic pain syndrome G89.4 [facility] [id number] [place] [address] 79884- 3924 Oct, [facility] [id number] [place] [address] 67308- 7304 Sep, Type 2 diabetes mellitus with other diabetic kidney complication E11.29 [facility] [address], [place] [address]- 0806 Sep, [facility] [address] [place] [address] 68332- 2509 Sep, Type 2 diabetes mellitus with other diabetic kidney complication E11.29 [facility] [address], [place] [address]- 2436 Sep, Type 2 diabetes mellitus with other diabetic kidney complication E11.29 [facility] [id number] [place] [address] 18911- 9654 Sep, Type 2 diabetes mellitus with other diabetic kidney complication E11.29 ; Chronic kidney disease, stage 4 (severe) N18.4 ; Chronic obstructive pulmonary disease, unspecified COPD type J44.9 ; Iron deficiency anemia due to chronic blood loss D50.0 ; 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 ; Gastroesophageal reflux disease without esophagitis K21.9 ; Essential hypertension I10 ; Primary insomnia F51.01 ; Depression, unspecified depression type F32.9 ; Chronic pain syndrome G89.4 ; Wrist pain, right M25.531 ; Paresthesia of right upper extremity R20.2 and Psoriasis of scalp L40.9 [facility] [address] 49943- 8178 Sep, [facility] [address] 93465- 3519 Aug, Essential hypertension I10 [facility] [address] 19891- 6132 Aug, History of DVT (deep vein thrombosis) Z86.718 [facility] [id number] [place] [address] 13359- 4073 Aug, [facility] [address] 37384- 0205 Jul, [facility] [id number] [place] [address] 22934- 3979 Jul, [facility] [address] 46667- 5268 Jul, longterm current use of anticoagulant Z79.01 ; Chronic pain syndrome G89.4 and Chronic kidney disease, stage 4 (severe) N18.4 [facility] [address] 27106- 3221 Jul, [facility] [id number] [place] [address] 35863- 4506 Jul, [facility] [address] 12392- 7009 Jul, [facility] [id number], [place] [address]- 8417 Jul, [facility] [address], [place] [address]- 2785 Jul, [facility] [address], [place] [address]- 0376 Jul, Type 2 diabetes mellitus with other diabetic kidney complication E11.29 [facility] [address], [place] [address]- 3065 16 Jul, 2016 History of DVT (deep vein thrombosis) Z86.718 [facility] [address] [place] [address] 81189- 4493 23 Jun, [address], [place] [address]- 7469 19 Jun, 2016 History of DVT (deep vein thrombosis) Z86.718 [facility] [address], [place] [address]- 7983 15 Jun, 2016 Post traumatic stress disorder (PTSD) F43.10 [address], [place] [address]- 9654 07 Jun, 2016 Type 2 diabetes mellitus [...] pain M79.641 and Right wrist pain M25.531 [facility] [address], [place] [address]- 5336 28 May, 2016 [facility] [id number] [place] [address] 31471 2546 May, [facility] [id number] [place] [address] 36898 2546 May, [facility] [id number] [place] [address] 34288- 8967 15 May, 2016 [facility] [id number] [place] [address] 48571- 7829 11 May, 2016 Anemia in other chronic diseases classified elsewhere D63.8 [facility] [id number] [place] [address] 45290- 8813 May, [facility] [id number] [place] [address] 03151- 4155 10 Apr, 2016 [facility] [address] [place] [address] 81062- 0424 27 Mar, 2016 Dermatofibroma D23.9 [facility] [id number] [place] [address] 47783- 2539 20 Mar, 2016 [facility] [address] [place] [address] 60390- 1100 14 Mar, 2016 Chronic pain syndrome G89.4 [facility] [address] [place] [address] 92600- 254 09 Mar, 2016 [facility] [id number], [place] [address] 2546 07 Mar, 2016 [facility] [id number] [place] [address] 17238- 2546 06 Mar, 2016 [facility] [address], [place] [address]- 254 30 Feb, 2016 [facility] [address] [address]- 8616 Feb, [facility] [id number] [place] [address] 04076- 8284 Feb, [facility] [address] [place] [address] 37375- 0119 Feb, [facility] [id number] [place] [address] 56145- 0299 Feb, [facility] [id number] [place] [address] 73532- 6632 Feb, [facility] [id number] [place] [address] 46024- 1848 Feb, Type 2 diabetes mellitus with other [...] Renal failure, chronic, stage 4 (severe) N18.4 [facility] [address] [place] [address] 14813- 2798 Feb, Skin tags, multiple acquired L91.8 [facility] [address] [place] [address] 26749- 5267 Jan, [facility] [id number] [place] [address] [id number] Jan, Dental examination Z01.20 [facility] [address] [place] [address] 31943- 5758 Jan, [facility] [id number] [place] [address] 56025- 5755 Jan, Type 2 diabetes mellitus with other [...] Renal failure, chronic, stage 4 (severe) N18.4 [facility] [address] [place] [address] [place] [address] 70138- 6326 Dec, Diabetes type 2, uncontrolled E11.65 [place] [id number] [place] [address] 03860- 7116 Dec, [address] 87672- 1634 Dec, Type 2 diabetes mellitus with other [...] F51.01 and Depression, unspecified depression type F32.9 [facility] [address] [place] [address] [id number] Dec, Dental caries K02.9 [facility] [address] [id number] [id number] Dec, [facility] [address] [place] [address] [id number] Dec, Dental examination Z01.20 [facility] [address] [id number] [id number] November, Dental examination Z01.20 and Dental caries K02.9 [facility] [address] [id number][place] [id number] Oct, [facility] [address] [id number] [place] [id number] Oct, [facility] [address] [id number] [place] [id number] Sep, [facility] [address] [id number] [place] [id number] Sep, [facility] [address] [id number] [place] [id number] Sep, [facility] [address] [id number] [place] [id number] Sep, Other chronic pain 338.29 [facility] [address] [id number] [place] [address] [id number] Aug, Diabetes type 2, uncontrolled E11.65 and Morbid obesity due to excess calories E66.01 [facility] [address] [id number] [place] [address] [id number] Aug, Hair loss L65.9 [facility] [address] [id number][place] [id number] Aug, [facility] [address] [id number] [place] [address] [id number] Jul, [facility] [address] [id number] [place] [address] [id number] Jul, [facility] [address] [id number] [place] [address] [id number] Jun, [facility] [address] [id number] [place] [address] [id number] Jun, Hair loss L65.9 and Disorder of the skin and subcutaneous tissue, unspecified L98.9 [facility] [address] [id number] [place] [address] [id number] May, Type 2 diabetes mellitus with other diabetic kidney complication E11.29 ; Type 2 diabetes mellitus with hyperglycemia E11.65 ; Morbid obesity due to excess calories E66.01 and Essential hypertension I10 [place] [id number] [place] [address] [id number] May, Diabetes type 2, uncontrolled E11.65 ; Encounter for immunization Z23 and Morbid obesity due to excess calories E66.01 [place] [id number] [place] [address] [id number] May, [facility] [address] [address] Apr, [place] [id number] [place] [address] [id number] Apr, Hyperglycemia R73.[address] [id number] Apr, [place] [id number] [place] [address] [id number] Apr, Depression F32.9 ; Encounter for immunization Z23 ; Hyperglycemia R73.9 and Anemia in other chronic diseases classified elsewhere D63.8 [facility] [id number], [place] [id number] Mar, [place] [id number] [place] [address] [id number] Feb, Positive occult stool blood test 792.1 [place] [id number] [place] [address] [id number] Feb, Depression 311 ; Other chronic pain 338.29 and Diabetes with renal manifestations, type II or unspecified type, not stated as uncontrolled 250.40 [facility] [address]00565[place] [address] [address] Feb, Occult blood in stools 792.1 [place] [id number] [place] [address] [id number] Feb, Anemia 285.9 ; Occult blood positive stool 792.1 ; Unspecified essential hypertension 401.9 and Other chronic pain 338.29 [id number] [place] [address] [id number] Feb, [address] [id number], [place] [id number] Feb, Anemia 285.9 [facility] [id number], [place] [id number] Feb, [facility] [id number] [place] [address] [id number] Feb, [facility] [id number] [place] [address] [id number] Feb, Diabetes with renal manifestations, type II or unspecified type, not stated as uncontrolled 250.40 ; Other chronic pain 338.29 ; Unspecified essential hypertension 401.9 ; Anemia 285.9 and Depression 311 [facility] [id number] [place] [address] [id number] Jan, [facility] [id number] [place] [address] [id number] Jan, Anemia 285.9 and Follow up V67.9 [facility] [id number] [place] [address] [id number] Jan, [facility] [id number], [place] [id number] Jan, [facility] [id number] [place] [address] [id number] Jan, [facility] [id number] [place] [address] [id number] Dec, [facility] [address]00565100[place], [place] [address] 2546 Oct, [facility] [id number] [place] [address] 23573- 2546 Oct, [facility] [id number] [place] [address]- 2546 Sep, [facility] [id number] [place] [address] [id number] Sep, [facility] [id number] [place] [address] 53665- 2546 Sep, [facility] [id number] [place] [address] [id number] Aug, [facility] [place] [facility] [address] [facility] [id number], [place] [address]- 3668 Aug, [facility] [place] [facility] [address] [facility] [id number], [place] [address]- 57[address] Aug, [facility] [place] [address] [facility] [id number][place] [id number] Aug, [facility] [place] [facility] [address] [facility] [id number], [place] [address]- 6591 Aug, [facility] [place] [facility] [address] [facility] [id number] [place] [address]- 3907 Aug, [facility] [place] [address] [facility] [id number], [place] [id number] Aug, [facility] [place] [facility] [address] [id number], [place] [address]- 8540 Aug, [facility] [place] [address] [facility] [id number], [place] [id number] Jul, [facility] [place] [facility] [address] [facility] [id number], [place] [address]- 8[address] Jul, [facility] [place] [facility] [address] [id number], [place] [address]- 2920 Jul, [facility] [place] [address] [facility] [id number], [place] [id number] Jul, [facility] [place] [facility] [address] [facility] [id number], [place] [address]- 5456 Jul, [facility] [place] [address] [facility] [id number], [place] [id number] Jul, [facility] [place] [facility] [address] [facility] [id number], [place] [address]- 9466 Jul, [facility] [place] [address] [facility] [id number], [place] [id number] Jun, [facility] [place] [address] [facility] [id number], [place] [id number] Jun, [facility] [place] [facility] [address] [facility] [id number], [place] [address]- 5635 Jun, [facility] [place] [facility] [address] [facility] [id number] [place] [address]- 6181 Jun, [facility] [place] [address] [facility] [id number] [place] [id number] Jun, [facility] [place] [facility] [address] [facility] [id number], [place] [address]- 5846 Jun, [facility] [place] [address] [facility] [id number], [place] [id number] May, [facility] [place] [facility] [address] [facility] [id number] [place] [address]- 7062 May, [facility] [place] [facility] [address] [facility] [id number] [place] [address]- 2202 May, [facility] [place] [address] [facility] [id number], [place] [id number] Apr, [facility] [place] [facility] [address] [facility] [id number], [place] [address]- 1280 Apr, [facility] [place] [address] [facility] [id number] [place] [id number] Apr, [facility] [place] [address] [facility] [id number], [place] [id number] Apr, [facility] [place] [facility] [address] [facility] [id number], [place] [address]- 4169 Apr, [facility] [place] [facility] [address] [facility] [id number], [place] [address]- 9950 Apr, [facility] [place] [address] [facility] [id number], [place] [id number] Mar, [facility] [place] [facility] [address] [facility] [id number], [place] [address]- 4822 Mar, [facility] [place] [address] [facility] [id number], [place] [id number] Mar, [facility] [place] [facility] [address] [facility] [id number], [place] [address]- 2046 Mar, [facility] [place] [address] [id number] [place] [id number] Mar, [facility] [place] [facility] [address] [id number] [place] [address]- 8490 Mar, [facility] [place] [address] [id number] [place] [id number] Mar, [facility] [place] [facility] [address] [id number], [place] [address]- 9801 Mar, [facility] [place] [address] [id number] [place] [id number] Mar, [facility] [place] [facility] [address] [id number] [place] [address]- 1693 Mar, [facility] [place] [address] [id number] [place] [id number] Feb, [facility] [place] [facility] [address] [id number], [place] 135363- 0527 Feb, [facility] [place] [address] [facility] [id number] [place] [id number] Jan, [facility] [place] [facility] [address] [facility] [id number], [place] [address]- 4475 Jan, [facility] [address] [facility] [id number], [place] [id number] Jan, [facility] [place] [facility] [address] [id number], [place] 615231- 6416 Jan, [facility] [address] [id number], [place] [id number] Jan, [facility] [place] [facility] [address] [id number], [place] [address]- 0935 Jan, [facility] [place] [facility] [address] [facility] [id number] [place]- 1944 Dec, [facility] [place] [facility] [address] [id number] [place]- 9972 Dec, [facility] [place] [address] [facility] [id number], [place] [id number] November, [facility] [place] [facility] [address] [id number] [place] [address]- 0326 November, [facility] [address] [facility] [id number] [place] [id number] November, [facility] [place] [facility] [address] [id number] [place] [address]- 1526 November, [facility] [place] [address] [facility] [id number] [place] [id number] Oct, [facility] [place] [facility] [address] [id number] [place] [address]- 4635 Oct, [facility] [place] [facility] [address] [id number] [place] [address]- 3645 Oct, [facility] [place] [facility] [address] [facility] [id number] [place] [address]- 6637 Oct, [facility] [place] [facility] [address] [facility] [id number] [place] [address]- 5312 Oct, [facility] [place] [facility] [address] [id number] [place] [address]- 5365 Oct, [facility] [place] [address] [id number] [place] [id number] Sep, [facility] [place] [address] [facility] [id number] [place] 018533973 Sep, [facility] [place] [facility] [address] [facility] [id number] [place] [address]- 4920 Sep, [facility] [place] [facility] [address] [id number] [place] [address]- 6639 Sep, [facility] [place] [address] [facility] [id number] [place] [id number] Sep, [facility] [place] [facility] [address] [facility] [id number] [place] [address]- 0237 Sep, [facility] [place] [facility] [address] [facility] [id number] [place] [address]- 4447 Aug, [facility] [place] [facility] [address] [facility] [id number], [place] [address]- 0768 Aug, [facility] [place] [address] [id number] [place] [id number] Aug, [facility] [place] [address] [facility] [id number] [place] [id number] Aug, [facility] [place] [facility] [address] [facility] [id number], [place] [address]- 9296 Aug, [facility] [place] [address] [facility] [id number] [place] 313435334 Aug, [facility] [place] [facility] [address] [facility] [id number], [place] [address]- 7718 Aug, [facility] [place] [address] [facility] [id number] [place] [id number] Aug, [facility] [place] [facility] [address]00565100[place], [place] [address]- 8589 Aug, [facility] [place] [address] [facility] [id number], [place] 074990225 Aug, [facility] [place] [facility] [address]00565100[place], [place] [address]- 1711 Aug, [facility] [place] [address] [facility] [id number], [place] [id number] Aug, [facility] [place] [facility] [address]00565100[place], [place] [address]- 4578 Aug, [facility] [place] [facility] [address] [facility] [id number], [place] [address]- 0467 Jul, [facility] [place] [address] [facility] [id number], [place] [id number] Jun, [facility] [place] [facility] [address] [facility] [id number], [place] [address]- 9680 Jun, [facility] [place] [facility] [address] [id number], [place] [address]- 3665 Jun, [facility] [place] [facility] [address]00565[address], [place] [address]- 8916 Jun, [facility] [place] [address] [facility] [id number] [place] 913529755 Jun, [facility] [place] [facility] [address] [id number] [place] [address]- 7006 Jun, [facility] [place] [facility] [address] [facility] [id number] [place] [address]- 2546 Jun, [facility] [place] [address] [facility] [id number], [place] 312240578 Jun, [facility] [place] [facility] [address] [id number] [place] [address]- 5576 Jun, [facility] [place] [facility] [address] [facility] [id number], [place] [address]- 9966 May, [facility] [place] [address] [id number], [place] [id number] May, [facility] [place] [facility] [address] [id number], [place] [address]- 0322 May, [facility] [place] [facility] [address] [id number], [place] [address]- 6772 May, [facility] [place] [facility] [address] [id number], [place] [address]- 2137 May, [facility] [place] [facility] [address] [facility] [id number], [place] [address]- 4198 May, [facility] [place] [address] [facility] [id number], [place] [id number] May, [facility] [place] [facility] [address] [id number], [place] [address]- 6566 May, [facility] [place] [address] [facility] [id number], [place] 826595465 May, [facility] [place] [facility] [address] [facility] [id number], [place] [address]- 2546 May, [facility] [place] [address] [facility] [id number], [place] 829620850 Apr, [facility] [place] [facility] [address] [id number], [place] [address]- 4783 Apr, [facility] [address] [facility] [id number], [place] 182659- 7485 Apr, [facility] [address] [facility] [id number], [place] [id number] Apr, [facility] [place] [facility] [address] [id number], [place] [address]- 1269 Apr, [facility] [place] [facility] [address] [id number], [place] [address]- 5581 Apr, [facility] [address] [facility] [id number], [place] 900381152 Apr, [facility] [place] [facility] [address] [facility] [id number], [place] [address]- 7516 Apr, [facility] [place] [facility] [address] [facility] [id number], [place] [address]- 1972 Apr, [facility] [place] [facility] [address] [facility] [id number], [place] [address]- 0088 Apr, [facility] [address] [facility] [id number], [place] 026896817 Apr, [facility] [place] [facility] [address] [facility] [id number], [place] [address]- 5247 Apr, [facility] [address] [facility] [id number], [place] 752536570 Apr, [facility] [place] [facility] [address] [facility] [id number], [place] [address]- 7266 Apr, [facility] [address] [facility] [id number], [place] 394393085 Apr, [facility] [place] [facility] [address] [facility] [id number], [place] [address]- 5064 Apr, [facility] [place] [facility] [address] [facility] [id number], [place] [address]- 0556 Apr, [facility] [place] [facility] [address] [facility] [id number], [place] [address]- 7496 Apr, [facility] [place] [address] [id number] [place] 656322286 Apr, [facility] [address] [facility] [id number], [place] [address]- 4743 Mar, [facility] [address] [facility] [id number], [place] [address]- 7203 Mar, [facility] [place] [address] [id number] [place] 600044121 Mar, [facility] [place] [address] [id number] [place] 716661667 Mar, [facility] [place] [address] [id number] [place] 710675468 Mar, [facility] [place] [address] [id number] [place] [id number] Feb, [facility] [place] [address] [id number] [place] 834652538 Feb, [facility] [place] [address] [id number] [place] 128713027 Feb, [facility] [address] [facility] [id number], [place] [address]- 8367 Feb, [facility] [address] [id number] [place] [id number] Feb, [facility] [address] [id number] [place] 048856156 Feb, [facility] [place] [address] [id number] [place] 840931565 Feb, [facility] [address] [id number] [place] [id number] Feb, [facility] [address] [id number] [place] 351526175 Feb, [facility] [place] [address] [id number] [place] 334852737 Jan, [facility] [place] [address] [id number] [place] 289627845 Jan, [facility] [place] [address] [id number] [place] 521701745 Jan, [facility] [place] [address] [id number] [place] 3453537[place] Jan, [facility] [place] [address] [id number] [place] 819595450 Jan, [facility] [address] [facility] [id number] [place] 15382026- 4806 Jan, [facility] [place] [address] [id number] [place] [id number] Jan, [facility] [place] [address] [id number] [place] 656268567 Jan, [facility] [place] [address] [id number] [place] 3[place]18637 Dec, [facility] [place] [address] [id number] [place] [id number] November, [facility] [place] [address] [id number] [place] 329518590 November, [facility] [place] [address] [id number] [place] [id number] November, [facility] [place] [address] [id number] [place] 522965850 November, [facility] [place] [address] [id number] [place] 469775464 November, [facility] [place] [address] [id number] [place] [id number] November, [facility] [place] [address] [id number] [place] 523579129 Jul, [facility] [place] [address] [id number] [place] [id number] Jul, [facility] [place] [address] [id number] [place] 247390117 Jul, [facility] [place] [address] [id number] [place] 036773297 Jun, [facility] [address] [id number] [place] 69389[address] Jun, [facility] [place] [address] [id number] [id number] May, [facility] [place] [facility] [address] [id number], [place] [address] May, [facility] [place] [address] [id number][place] [id number] May, [facility] [address] [facility] [id number], [place] [address] May, [facility] [place] [address] [id number][place] [id number] May, [facility] [place] [facility] [address] [facility] [id number], [place] [address] May, [facility] [place] [address] [facility] [id number] [id number] Apr, [facility] [place] [facility] [address] [facility] [id number], [place] [address] Apr, [facility] [place] [facility] [address] [facility] [id number], [place] [address] Apr, [facility] [place] [address] [id number][place] [id number] Apr, [facility] [place] [address] [facility] [id number][place] [id number] Apr, [facility] [place] [facility] [address] [facility] [id number], [place] [address] Apr, [facility] [place] [facility] [address] [facility] [id number][place] [address] Apr, [facility] [place] [address] [id number][place] [id number] Apr, [facility] [place] [facility] [address] [facility] [id number], [place] [address] Apr, [facility] [place] [address] [id number][place] [id number] Apr, [facility] [address] [id number][place] [id number] Apr, [facility] [address] [id number][place] [id number] Mar, [facility] [place] [address] [id number] [place] [id number] Feb, [facility] [place] [address] [id number] [place] [id number] Jan, [facility] [place] [address] [id number] [place] [id number] Dec, [facility] [place] [address] [id number] [place] [id number] Dec, [facility] [place] [address] [id number] [place] [id number] Dec, [facility] [place] [address] [id number] [place] [id number] Dec, [facility] [place] [address] [id number] [place] [id number] Dec, [facility] [place] [address] [id number] [place] [id number] November, [facility] [place] [address] [id number] [place] [id number] November, [facility] [place] [address] [id number] [place] [id number] November, [facility] [address]00565[place], [place] [address] November, [facility] [place] [address] [id number] [place] [id number] November, [facility] [place] [address] [id number] [place] [id number] November, [facility] [place] [address] [id number] [place] [id number] Oct, [facility] [place] [address] [id number] [place] [id number] Oct, [facility] [place] [address] [id number] [place] [id number] Oct, [facility] [place] [address] [id number] [place] [id number] Oct, [facility] [place] [address] [id number] [place] [id number] Oct, [facility] [place] [address] [id number] [place] [id number] Oct, [facility] [place] [address] [id number] [place] [id number] Sep, [facility] [place] [address] [id number] [place] [id number] Aug, [facility] [place] [address] [id number] [place] [id number] Aug, [facility] [place] [address] [id number] [place] [id number] Jul, [facility] [place] [facility] [address] [facility] [id number], [place] [address] Jun, [facility] [place] [facility] [address] [facility] [id number], [place] [address] Jun, [facility] [place] [facility] [id number], [place] [address] Jun, [facility] [place] [facility] [id number], [place] [address] Jun, [facility] [place] [facility] [id number], [place] [address] May, [facility] [place] [facility] [id number], [place] [address] May, [facility] [place] [facility] [id number], [place] [address] Apr, [facility] [place] [facility] [address] [id number], [place] [address] Apr, [facility] [place] [facility] [address] [facility] [id number], [place] [address] Apr, [facility] [place] [facility] [address] [id number], [place] [address] Feb, [facility] [place] [facility] [address] [id number], [place] [address] Aug, [facility] [facility] [id number] [place] [address] 18 Jul, 2010 [facility] [address] [id number] [place] [address] 30 Jun, 2010 [facility] [address] [id number] [place] [address] May, [facility] [address] [id number] [place] [address] May, [facility] [address] [id number] [place] [address] May, [facility] [id number] [place] [address], [place] [address] May, [facility] [address] [facility] [id number] [place] [address] May, [facility] [address] [facility] [id number] [place] [address] Aug, [facility] [address] [id number] [place] [address] Jun, [facility] [address] [facility] [id number] [place] [address] Jun, [facility] [address] [facility] [id number] [place] [address] Jun, [facility] [address] [id number] [place] [address] 24 May, 2009 [facility] [address] [id number], [place] [address] Apr, [facility] [address] [facility] [id number] [place] [address] 27 Apr, 2009 [facility] [place] [facility] [address] [facility] [id number] [place] [address] 15 Apr, 2009 [facility] [address] [id number] [place] [address] Jan, [facility] [address] [facility] [id number] [place] [address] Oct, [facility] [address] [facility] [id number], [place] [address] May, [facility] [address] [facility] [id number], [place] [address] May, IMMUNIZATIONS No Known Immunizations SOCIAL HISTORY Never Assessed REASON FOR VISIT Refill request PLAN OF CARE VITAL SIGNS MEDICATIONS Medication Instructions Dosage Frequency Start Date End Date Duration Status Seroquel 50 mg Orally Once a day at bedtime 1 tablet 30 Active LidoPatch Pain Relief 3.99-1.25 % Externally Once a day 1 patch to skin remove after 12 hours 24h 30 Active RESULTS No Results PROCEDURES No Known [...] Dialysis [facility] Reveles 2012 -Dr. Simon now [facility] Medical History Colonoscopy (polyps 2 ) [...] Dependency Medical History DIAB EYE EXAM 06-01-17 Medical History kidney failure Surgical History cholecystectomy Surgical History hysterectomy Surgical [...] 05/2015 Hospitalization History Anemia and transfusion 2015 Hospitalization History kidney failure 12/22/2017
--- OUTSIDE RECORDS SUMMARY | 2018-02-13 13:47 | XMS REPORT ---
Author Author CHELSY VILLAFANA [facility] Address [address] [place] [address] Care Team Providers Care Ice Rink Attendant Name Role Phone CHELSY VILLAFANA Unavailable PROBLEMS Type Condition ICD9-CM Code VTV55-VA Code Onset Dates Condition Status SNOMED Code Problem Chronic kidney disease, stage 4 (severe) N18.4 Active 246589157 Problem Psoriasis of scalp L40.9 Active 092202405 Problem Type 2 diabetes mellitus with hyperglycemia E11.65 Active 463101375960832 Problem Fibromyalgia M79.7 Active 486093738 Problem History of DVT (deep vein thrombosis) Z86.718 Active 084906842 Problem Carpal tunnel syndrome, bilateral G56.03 Active 09784611458646996 Problem Type 2 diabetes mellitus with other diabetic kidney complication E11.29 Active 773710268 Problem Anemia in other chronic diseases classified elsewhere D63.8 Active 530166441 Problem penitentiary 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 Active 077602440 Problem Paresthesia of right upper extremity R20.2 Active 43597145 Problem Bilateral lower extremity edema R60.0 Active 691248061 Problem Supplemental oxygen dependent Z99.81 Active 278713672123 Problem Sleep apnea in adult G47.33 Active 75442112 Problem Chronic pain syndrome G89.4 Active 624744288 Problem 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 Active 201926711 Problem Essential hypertension I10 Active 90372875 Problem Gastroesophageal reflux disease without esophagitis K21.9 Active 960269643 Problem Chronic obstructive pulmonary disease, unspecified COPD type J44.9 Active 97711501 Problem 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 Active 672923912025276 Problem Primary insomnia F51.01 Active 1581531 Problem Oxygen desaturation during sleep G47.34 Active 851321990 Problem Right carpal tunnel syndrome G56.01 Active 834392281210812 Problem Diabetic polyneuropathy associated with type 2 diabetes mellitus E11.42 Active 17207321 Problem Depression, unspecified depression type F32.9 Active 84206748 ALLERGIES No Information ENCOUNTERS Encounter Location Date Diagnosis [facility] [address], [place] [address] Feb, [facility] [address], [place] [address] 3107 Jan, [facility] [address], [place] [address] 2768 Jan, [facility] [address], [place] [address] 8589 Jan, [facility] [id number] [id number] Jan, [facility] [address], [place] [address] 5850 Jan, [facility] [address], [place] [address] 7167 Jan, [facility] [address], [place] [address] 4653 Jan, Essential hypertension I10 [facility] [address], [place] [address] 0512 Jan, Chronic obstructive pulmonary disease, unspecified COPD type J44.9 [facility] [address], [place] [address] 9881 Jan, [facility] [address], [place] [address] 0741 Jan, [facility] [address], [place] [address] 9492 Jan, Type 2 diabetes mellitus with other diabetic kidney complication E11.29 ; Anemia in other chronic diseases classified elsewhere D63.8 ; Chronic obstructive pulmonary disease, unspecified COPD type J44.9 and BMI 60.0-69.9, adult Z68.44 [facility] [address], [place] [address] 6175 Jan, [facility] [address], [place] [address] 8836 Jan, [facility] [id number] [place] [id number] Jan, [facility] [id number] [place] [id number] Dec, [facility] [address] [id number] [id number] Dec, [facility] [id number] [place] [address] [id number] Dec, Essential hypertension I10 ; Type 2 diabetes mellitus with other diabetic kidney complication E11.29 ; Depression, unspecified depression type F32.9 ; Supplemental oxygen dependent Z99.81 ; Chronic pain syndrome G89.4 ; Fibromyalgia M79.7 ; Carpal tunnel syndrome, bilateral G56.03 and Chronic kidney disease, stage 4 (severe) N18.4 [facility] [id number] [place] [address] 23279- 4999 Dec, Essential hypertension I10 [facility] [id number] [place] [address] 72234- 1145 November, Type 2 diabetes mellitus with other diabetic kidney complication E11.29 [facility] [id number] [place] [address] 06035- 3611 November, Chronic pain syndrome G89.4 [facility] [id number], [place] [address] 4783 November, [facility] [id number] [place] [address] [id number]- 5466 November, [facility] [id number] [place] [address] 64112- 3853 November, [facility] [id number] [place] [address] 68359- 7561 Oct, Type 2 diabetes mellitus with other diabetic kidney complication E11.29 [facility] [id number] [place] [address] 56320- 9759 Oct, Primary insomnia F51.01 [facility] [address] [id number] [id number] Oct, Bilateral lower extremity edema R60.0 [facility] [address], [place] [address] 4249 Oct, [facility] [address] [place] [address] 19607- 6451 Sep, Type 2 diabetes mellitus with other diabetic kidney complication E11.29 and Chronic obstructive pulmonary disease, unspecified COPD type J44.9 [facility] [address], [place] [address] 3597 15 Aug, 2017 Type 2 diabetes mellitus with other diabetic kidney complication E11.29 [place] [address], [place] [address] 4396 12 Aug, 2017 Gastroesophageal reflux disease without esophagitis K21.9 ; penitentiary current use of anticoagulant Z79.01 ; Chronic pain syndrome G89.4 ; Essential hypertension I10 and Type 2 diabetes mellitus with other diabetic kidney complication E11.29 [facility] [facility] [address], [place] [address] 6251 08 Aug, 2017 Chronic pain syndrome G89.4 [facility] [address], [place] [address] 0352 Aug, Type 2 diabetes mellitus with other diabetic kidney complication E11.29 [facility] [address], [place] [address] 5428 Jul, Diabetic polyneuropathy associated with type 2 diabetes mellitus E11.42 [facility] [address], [place] [address] 3538 Jul, Primary insomnia F51.01 [facility] [address], [place] [address] 1488 Jul, [facility] [address], [place] [address] 2264 14 [place], 2018 Type 2 diabetes mellitus with other diabetic kidney complication E11.29 and Chronic obstructive pulmonary disease, unspecified COPD type J44.9 [facility] [facility] [address] [place] [address] 01138- 9007 Jul, Type 2 diabetes mellitus with other diabetic kidney complication E11.29 [facility] [id number] [place] [address] 61040- 4653 Jun, Type 2 diabetes mellitus with other diabetic kidney complication E11.29 [facility] [id number] [place] [address] 55486- 0338 Jun, [facility] [id number] [place] [address] 86940- 6236 Jun, Chronic obstructive pulmonary disease, unspecified COPD type J44.9 [facility] [id number] [place] [address] 67339- 1003 May, Type 2 diabetes mellitus with other diabetic kidney complication E11.29 [facility] [id number] [place] [address] 13307- 7466 May, penitentiary current use of anticoagulant Z79.01 and Essential hypertension I10 [place] [id number] [place] [address] 45285- 9822 May, Anemia in other chronic diseases classified elsewhere D63.8 ; Chronic obstructive pulmonary disease, unspecified COPD type J44.9 ; Oxygen desaturation during sleep G47.34 ; Sleep apnea in adult G47.33 and Supplemental oxygen dependent Z99.81 [facility] [id number] [place] [address] 55278- 1516 May, Type 2 diabetes mellitus with other diabetic kidney complication E11.29 ; Essential hypertension I10 ; Chronic pain syndrome G89.4 ; BMI 40.0-44.9, adult Z68.41 ; Gastroesophageal reflux disease without esophagitis K21.9 ; penitentiary current use of anticoagulant Z79.01 ; 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 ; Diabetic polyneuropathy associated with type 2 diabetes mellitus E11.42 ; Edema of both legs R60.0 and Supplemental oxygen dependent Z99.81 [facility] [address] [place] [address] 66105- 7293 May, [facility] [id number] [place] [address] 13641- 6733 May, Essential hypertension I10 and Gastroesophageal reflux disease without esophagitis K21.9 [facility] [id number] [place] [address] 67029- 3960 May, [facility] [id number] [place] [address] 81621- 9741 May, Type 2 diabetes mellitus with other diabetic kidney complication E11.29 and 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 [facility] [id number] [place] [address] 69473- 7110 Apr, Chronic pain syndrome G89.4 and Essential hypertension I10 [facility] [id number] [place] [address] 09949- 4392 Apr, Type 2 diabetes mellitus with other diabetic kidney complication E11.29 [facility] [id number] [place] [address] 55384- 8781 Apr, Type 2 diabetes mellitus with other diabetic kidney complication E11.29 [facility] [id number] [place] [address] 33736- 6562 Apr, Essential hypertension I10 [facility] [id number] [place] [address] 07368- 2864 Apr, Gastroesophageal reflux disease without esophagitis K21.9 [facility] [id number] [place] [address] 92383- 3655 Apr, Type 2 diabetes mellitus with other diabetic kidney complication E11.29 [facility] [id number] [place] [address] 60818- 1052 Apr, Type 2 diabetes mellitus with other diabetic kidney complication E11.29 and 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 [facility] [id number] [place] [address] 03200- 9676 Mar, Encounter for immunization Z23 and Preoperative examination Z01.818 [facility] [id number] [place] [address] 27059- 3434 Mar, [facility] [id number] [place] [address] 73764- 0066 Mar, Type 2 diabetes mellitus with other diabetic kidney complication E11.29 [facility] [facility] [address] 08334- 0339 08 Mar, 2017 Type 2 diabetes mellitus with other diabetic kidney complication E11.29 [facility] [id number] [place] [address] 42374- 6756 06 Mar, 2017 Gastroesophageal reflux disease without esophagitis K21.9 [facility] [id number] [place] [address] 73377- 4610 Mar, Essential hypertension I10 [place] [address] 60564- 1039 Feb, penitentiary current use of anticoagulant Z79.01 [facility] [id number] [place] [address] 07748- 3691 Feb, Type 2 diabetes mellitus with other diabetic kidney complication E11.29 [facility] [id number] [place] [address] 10440- 7768 Feb, Type 2 diabetes mellitus with other diabetic kidney complication E11.29 [facility] [id number] [place] [address] 14342- 0626 Feb, Type 2 diabetes mellitus with other diabetic kidney complication E11.29 [facility] [id number] [place] [address] 52837- 9285 Feb, Gastroesophageal reflux disease without esophagitis K21.9 [facility] [id number] [place] [address] 07822- 9950 Feb, Type 2 diabetes mellitus with other diabetic kidney complication E11.29 [facility] [id number] [place] [address] 81634- 4571 Feb, 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 [facility] [address], [place] [address]- 8975 Jan, Type 2 diabetes mellitus with other diabetic kidney complication E11.29 [facility] [address], [place] [address]- 7674 Jan, Type 2 diabetes mellitus with other diabetic kidney complication E11.29 [facility] [address], [place] [address]- 6008 Jan, Chronic pain syndrome G89.4 [facility] [address], [place] [address]- 3912 Jan, [facility] [id number] [address]- 8537 Jan, [facility] [address], [place] [address]- 1978 Jan, [facility] [address], [place] [address]- 8123 Jan, [facility] [address], [place] [address]- 4385 Jan, Primary insomnia F51.01 ; Type 2 diabetes mellitus with other diabetic kidney complication E11.29 ; Chronic pain syndrome G89.4 and Essential hypertension I10 [facility] [address], [place] [address]- 3481 Jan, Primary insomnia F51.01 [facility] [address], [place] [address]- 8532 Jan, Type 2 diabetes mellitus with other diabetic kidney complication E11.29 [facility] [address], [place] [address]- 8632 Jan, [facility] [address], [place] [address]- 5632 Jan, Chronic obstructive pulmonary disease, unspecified COPD type J44.9 [facility] [address], [place] [address]- 9882 Jan, Essential hypertension I10 ; Type 2 diabetes mellitus with other diabetic kidney complication E11.29 ; Chronic obstructive pulmonary disease, unspecified COPD type J44.9 ; Chronic kidney disease, stage 4 (severe) N18.4 ; Right carpal tunnel syndrome G56.01 ; 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 ; penitentiary (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 and Diabetic polyneuropathy associated with type 2 diabetes mellitus E11.42 [facility] [id number] [place] [address] 63378- 1172 Jan, Gastroesophageal reflux disease without esophagitis K21.9 [facility] [id number] [place] [address] 37272- 3052 Dec, [facility] [facility] [id number] [place] [address] 58555- 9866 Dec, [place] [facility] [id number] [place] [address] 90102- 8879 Dec, penitentiary current use of anticoagulant Z79.01 ; Chronic pain syndrome G89.4 and Essential hypertension I10 [place] [id number] [place] [address] 28636- 0789 Dec, [facility] [id number] [place] [address] 75555- 3443 Dec, Type 2 diabetes mellitus with other diabetic kidney complication E11.29 [facility] [id number] [place] [address] 33871- 4911 Dec, [facility] [id number] [place] [address] 35101- 5800 Dec, Gastroesophageal reflux disease without esophagitis K21.9 [facility] [id number] [place] [address] 23289- 0551 November, Type 2 diabetes mellitus with other diabetic kidney complication E11.29 [facility] [id number] [place] [address] 68049- 5951 November, [facility] [address], [place] [address]- 3726 November, Type 2 diabetes mellitus with other diabetic kidney complication E11.29 [facility] [id number] [address]- 1776 November, [facility] [id number] [place] [address] 43091- 2028 November, Type 2 diabetes mellitus with other diabetic kidney complication E11.29 [facility] [id number] [place] [address] 60092- 7079 November, [facility] [id number] [place] [address] 05138- 9388 Oct, Essential hypertension I10 [facility] [id number] [place] [address] 99592- 1382 Oct, Psoriasis of scalp L40.9 [facility] [id number] [place] [address] 72598- 1056 Oct, Essential hypertension I10 and Chronic pain syndrome G89.4 [facility] [id number] [place] [address] 30582- 5293 Oct, [facility] [id number] [place] [address] 97739- 5534 Sep, Type 2 diabetes mellitus with other diabetic kidney complication E11.29 [facility] [address], [place] [address]- 3796 Sep, [facility] [address] [place] [address] 91059- 5033 Sep, Type 2 diabetes mellitus with other diabetic kidney complication E11.29 [facility] [address], [place] [address]- 9143 Sep, Type 2 diabetes mellitus with other diabetic kidney complication E11.29 [facility] [id number] [place] [address] 35201- 1873 Sep, Type 2 diabetes mellitus with other diabetic kidney complication E11.29 ; Chronic kidney disease, stage 4 (severe) N18.4 ; Chronic obstructive pulmonary disease, unspecified COPD type J44.9 ; Iron deficiency anemia due to chronic blood loss D50.0 ; 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 ; Gastroesophageal reflux disease without esophagitis K21.9 ; Essential hypertension I10 ; Primary insomnia F51.01 ; Depression, unspecified depression type F32.9 ; Chronic pain syndrome G89.4 ; Wrist pain, right M25.531 ; Paresthesia of right upper extremity R20.2 and Psoriasis of scalp L40.9 [place] [address] 88146- 0930 Sep, [place] [address] 61218- 1075 Aug, Essential hypertension I10 [facility] [facility] [address] 07200- 6611 Aug, History of DVT (deep vein thrombosis) Z86.718 [facility] [id number] [place] [address] 02010- 8369 Aug, [place] [address] 20142- 4949 Jul, [facility] [facility] [id number] [place] [address] 54390- 6810 Jul, [place] [address] 53876- 2318 Jul, penitentiary current use of anticoagulant Z79.01 ; Chronic pain syndrome G89.4 and Chronic kidney disease, stage 4 (severe) N18.4 [place] [address] 04422- 7524 Jul, [facility] [facility] [id number] [place] [address] 03968- 2897 Jul, [place] [facility] [address] 81748- 6845 Jul, [place] [facility] [id number], [place] [address]- 4851 Jul, [place] [address], [place] [address]- 0052 Jul, [place] [address], [place] [address]- 5847 Jul, Type 2 diabetes mellitus with other diabetic kidney complication E11.29 [place] [address], [place] [address]- 7969 16 Jul, 2016 History of DVT (deep vein thrombosis) Z86.718 [place] [address] [place] [address] 33410- 6899 23 Jun, [address], [place] [address]- 6369 19 Jun, 2016 History of DVT (deep vein thrombosis) Z86.718 [place] [address], [place] [address]- 1806 15 Jun, 2016 Post traumatic stress disorder (PTSD) F43.[address], [place] [address]- 9008 07 Jun, 2016 Type 2 diabetes mellitus with other diabetic kidney complication E11.29 ; Diabetic polyneuropathy associated with type 2 diabetes mellitus E11.42 ; Iron deficiency anemia due to chronic blood loss D50.0 ; Chronic obstructive pulmonary disease, unspecified COPD type J44.9 ; penitentiary current use of anticoagulant Z79.01 ; History [...] Right wrist pain M25.531 [facility] [address], [place] [address]- 9546 28 May, 2016 [facility] [id number] [place] [address] 80156 2546 May, [facility] [id number] [place] [address] 35742 2546 May, [facility] [id number] [place] [address] 21218- 9515 15 May, 2016 [facility] [id number] [place] [address] 55816- 4292 11 May, 2016 Anemia in other chronic diseases classified elsewhere D63.8 [facility] [id number] [place] [address] 81415- 9784 May, [facility] [id number] [place] [address] 39658- 1369 10 Apr, 2016 [facility] [address] [place] [address] 56626- 3288 27 Mar, 2016 Dermatofibroma D23.9 [facility] [id number] [place] [address] 97484- 2909 20 Mar, 2016 [facility] [address] [place] [address] 59752- 7640 14 Mar, 2016 Chronic pain syndrome G89.4 [facility] [address] [place] [address] 14198- 2547 09 Mar, 2016 [facility] [id number] [address] 2546 07 Mar, 2016 [facility] [id number] [place] [address] 15955- 2546 06 Mar, 2016 [facility] [address], [place] [address]- 254 30 Feb, 2016 [facility] [id number] [address]- 2208 Feb, [facility] [id number] [place] [address] 25654- 7768 Feb, [facility] [id number] [place] [address] 11755- 7619 Feb, [facility] [id number] [place] [address] 13863- 9841 Feb, [facility] [id number] [place] [address] 26374- 6786 Feb, [place] [id number] [place] [address] 12343- 7931 Feb, Type 2 diabetes mellitus with other diabetic kidney complication E11.29 ; Diabetic polyneuropathy associated with type 2 diabetes mellitus E11.42 ; Iron deficiency anemia due to chronic blood loss D50.0 ; Chronic obstructive pulmonary disease, unspecified COPD type J44.9 ; penitentiary current use of anticoagulant Z79.01 ; History of DVT (deep vein thrombosis) Z86.718 ; Chronic pain syndrome G89.4 ; Oxygen desaturation during sleep G47.34 ; Sleep apnea in adult G47.33 ; Gastroesophageal reflux disease without esophagitis K21.9 ; Essential hypertension I10 ; Primary insomnia F51.01 ; Depression, unspecified depression type F32.9 and Renal failure, chronic, stage 4 (severe) N18.4 [place] [id number] [place] [address] 37247- 4802 Feb, Skin tags, multiple acquired L91.8 [facility] [id number] [place] [address] 58015- 3284 Jan, [facility] [id number] [place] [address] [id number] Jan, Dental examination Z01.20 [facility] [id number] [place] [address] 67741- 4515 Jan, [facility] [id number] [place] [address] 69866- 7099 Jan, Type 2 diabetes mellitus with other diabetic kidney complication E11.29 ; Diabetic polyneuropathy associated with type 2 diabetes mellitus E11.42 ; Iron deficiency anemia due to chronic blood loss D50.0 ; Chronic obstructive pulmonary disease, unspecified COPD type J44.9 ; penitentiary current use of anticoagulant Z79.01 ; History [...] stage 4 (severe) N18.4 [facility] [address] [place] [id number] [place] [address] 63476- 3939 Dec, Diabetes type 2, uncontrolled E11.65 [place] [id number] [place] [address] 88496- 2535 Dec, [address] 52672- 9875 Dec, Type 2 diabetes mellitus with other diabetic kidney complication E11.29 ; Diabetic polyneuropathy associated with type 2 diabetes mellitus E11.42 ; Iron deficiency anemia due to chronic blood loss D50.0 ; Chronic obstructive pulmonary disease, unspecified COPD type J44.9 ; penitentiary current use of anticoagulant Z79.01 ; History of DVT (deep vein thrombosis) Z86.718 ; Chronic pain syndrome G89.4 ; Oxygen desaturation during sleep G47.34 ; Sleep apnea in adult G47.33 ; Gastroesophageal reflux disease without esophagitis K21.9 ; Essential hypertension I10 ; Primary insomnia F51.01 and Depression, unspecified depression type F32.9 [facility] [address] [place] [address] [id number] Dec, Dental caries K02.9 [facility] [address] [id number] [id number] Dec, [facility] [address] [place] [address] [id number] Dec, Dental examination Z01.20 [facility] [address] [id number] [id number] November, Dental examination Z01.20 and Dental caries K02.9 [facility] [address] [id number] [place] [id number] Oct, [facility] [address] [id number] [place] [id number] Oct, [facility] [address] [id number] [place] [id number] Sep, [facility] [address] [id number] [place] [id number] Sep, [facility] [address] [id number] [place] [id number] Sep, [facility] [address] [id number] [place] [id number] Sep, Other chronic pain 338.29 [facility] [address] [id number] [place] [address] [id number] Aug, Diabetes type 2, uncontrolled E11.65 and Morbid obesity due to excess calories E66.01 [facility] [address] [id number] [place] [address] [id number] Aug, Hair loss L65.9 [facility] [address] [id number] [place] [id number] Aug, [facility] [address] [id number] [place] [address] [id number] Jul, [facility] [address] [id number] [place] [address] [id number] Jul, [facility] [address] [id number] [place] [address] [id number] Jun, [facility] [address] [id number] [place] [address] [id number] Jun, Hair loss L65.9 and Disorder of the skin and subcutaneous tissue, unspecified L98.9 [facility] [address] [id number] [place] [address] [id number] May, Type 2 diabetes mellitus with other diabetic kidney complication E11.29 ; Type 2 diabetes mellitus with hyperglycemia E11.65 ; Morbid obesity due to excess calories E66.01 and Essential hypertension I10 [place] [id number] [place] [address] [id number] May, Diabetes type 2, uncontrolled E11.65 ; Encounter for immunization Z23 and Morbid obesity due to excess calories E66.01 [place] [id number] [place] [address] [id number] May, [facility] [address] 14890- 3275 Apr, [place] [id number] [place] [address] [id number] Apr, Hyperglycemia R73.[address] [id number] Apr, [place] [id number] [place] [address] [id number] Apr, Depression F32.9 ; Encounter for immunization Z23 ; Hyperglycemia R73.9 and Anemia in other chronic diseases classified elsewhere D63.8 [facility] [id number] [id number] Mar, [place] [id number] [place] [address] [id number] Feb, Positive occult stool blood test 792.1 [place] [id number] [place] [address] [id number] Feb, Depression 311 ; Other chronic pain 338.29 and Diabetes with renal manifestations, type II or unspecified type, not stated as uncontrolled 250.40 [facility] [address] 50468120- 4718 Feb, Occult blood in stools 792.1 [place] [id number] [place] [address] [id number] Feb, Anemia 285.9 ; Occult blood positive stool 792.1 ; Unspecified essential hypertension 401.9 and Other chronic pain 338.29 [address] [place] [address] [id number] Feb, [address] [id number] [place] [id number] Feb, Anemia 285.9 [facility] [id number] [place] [id number] Feb, [facility] [id number] [place] [address] [id number] Feb, [facility] [id number] [place] [address] [id number] Feb, Diabetes with renal manifestations, type II or unspecified type, not stated as uncontrolled 250.40 ; Other chronic pain 338.29 ; Unspecified essential hypertension 401.9 ; Anemia 285.9 and Depression 311 [facility] [id number] [place] [address] [id number] Jan, [facility] [id number] [place] [address] [id number] Jan, Anemia 285.9 and Follow up V67.9 [facility] [id number] [place] [address] [id number] Jan, [facility] [id number] [place], [place] [id number] Jan, [facility] [id number] [place] [address] [id number] Jan, [facility] [id number] [place] [address] [id number] Dec, [facility] [address]00565100[place], [place] [address] 2546 Oct, [facility] [id number] [place] [address] 83677- 2546 Oct, [facility] [id number] [place] [address] 50338- 2546 Sep, [facility] [id number] [place] [address] [id number] Sep, [facility] [id number] [place] [address] 37818- 2546 Sep, [facility] [id number] [place] [address] [id number] Aug, [facility] [place] [facility] [address] [facility] [id number], [place] [address]- 6479 Aug, [facility] [place] [facility] [address] [facility] [id number], [place] [address]- 2856 Aug, [facility] [address] [facility] [id number] [place] [id number] Aug, [facility] [place] [facility] [address] [facility] [id number], [place] [address]- 0440 Aug, [facility] [place] [facility] [address] [facility] [id number] [place] [address]- 4490 Aug, [facility] [address] [facility] [id number] [place] [id number] Aug, [facility] [place] [facility] [address] [id number] [address]- 2800 Aug, [facility] [address] [facility] [id number] [place] [id number] Jul, [facility] [place] [facility] [address] [facility] [id number], [place] [address]- 8838 Jul, [facility] [place] [facility] [address] [id number], [place] [address]- 4893 Jul, [facility] [address] [facility] [id number] [place] [id number] Jul, [facility] [place] [facility] [address] [facility] [id number], [place] [address]- 0566 Jul, [facility] [address] [facility] [id number] [place], [place] [id number] Jul, [facility] [place] [facility] [address] [facility] [id number], [place] [address]- 4736 Jul, [facility] [address] [facility] [id number] [place] [id number] Jun, [facility] [address] [facility] [id number] [place] [id number] Jun, [facility] [place] [facility] [address] [facility] [id number], [place] [address]- 5960 Jun, [facility] [place] [facility] [address] [facility] [id number] [place] [address]- 6712 Jun, [facility] [address] [facility] [id number] [place] [id number] Jun, [facility] [place] [facility] [address] [facility] [id number][place] [address]- 7906 Jun, [facility] [address] [facility] [id number] [place] [id number] May, [facility] [place] [facility] [address] [facility] [id number] [place] [address]- 0214 May, [facility] [place] [facility] [address] [facility] [id number] [place] [address]- 2359 May, [facility] [address] [facility] [id number] [place] [id number] Apr, [facility] [place] [facility] [address] [facility] [id number], [place] [address]- 6497 Apr, [facility] [address] [facility] [id number] [place] [id number] Apr, [facility] [address] [facility] [id number] [place] [id number] Apr, [facility] [place] [facility] [address] [facility] [id number][place] [address]- 6126 Apr, [facility] [place] [facility] [address] [facility] [id number], [place] [address]- 0618 Apr, [facility] [address] [facility] [id number] [place], [place] [id number] Mar, [facility] [place] [facility] [address] [facility] [id number], [place] [address]- 1758 Mar, [facility] [address] [facility] [id number] [place] [id number] Mar, [facility] [place] [facility] [address] [facility] [id number], [place] [address]- 0770 Mar, [facility] [address] [id number] [place] [id number] Mar, [facility] [place] [facility] [address] [id number] [place] [address]- 2650 Mar, [facility] [address] [id number] [place] [id number] Mar, [facility] [place] [facility] [address] [id number], [place] [address]- 7526 Mar, [facility] [address] [id number] [place] [id number] Mar, [facility] [place] [facility] [address] [id number] [place] [address]- 2739 Mar, [facility] [address] [id number] [place] [id number] Feb, [facility] [place] [facility] [address] [id number], [place] 499287- 6894 Feb, [facility] [address] [facility] [id number] [place] [id number] Jan, [facility] [place] [facility] [address] [facility] [id number], [place] [address]- 7157 Jan, [facility] [address] [facility] [id number] [place] [id number] Jan, [facility] [place] [facility] [address] [id number], [place] 718[place]- 7456 Jan, [facility] [address] [id number] [place] [id number] Jan, [facility] [place] [facility] [address] [id number], [place] [address]- 4782 Jan, [facility] [place] [facility] [address] [facility] [id number] [place]- 5280 Dec, [facility] [place] [facility] [address] [id number] [place]- 9153 Dec, [facility] [address] [facility] [id number] [place] [id number] November, [facility] [place] [facility] [address] [id number] [place] [address]- 8436 November, [facility] [address] [facility] [id number] [place] [id number] November, [facility] [place] [facility] [address] [id number] [place] [address]- 0276 November, [facility] [address] [facility] [id number] [place] [id number] Oct, [facility] [place] [facility] [address] [id number] [place] [address]- 5240 Oct, [facility] [place] [facility] [address] [id number] [place] [address]- 2468 Oct, [facility] [place] [facility] [address] [facility] [id number] [place] [address]- 2135 Oct, [facility] [place] [facility] [address] [facility] [id number] [place] [address]- 5852 Oct, [facility] [place] [facility] [address] [id number] [place] [address]- 0644 Oct, [facility] [address] [id number] [place] [id number] Sep, [facility] [address] [facility] [id number] [place] [id number] Sep, [facility] [place] [facility] [address] [facility] [id number] [place] [address]- 6124 Sep, [facility] [place] [facility] [address] [id number] [place] [address]- 2941 Sep, [facility] [address] [facility] [id number] [place] [id number] Sep, [facility] [place] [facility] [address] [facility] [id number] [place] [address]- 4837 Sep, [facility] [place] [facility] [address] [facility] [id number] [place] [address]- 0542 Aug, [facility] [place] [facility] [address] [facility] [id number], [place] [address]- 0432 Aug, [facility] [address] [id number] [place] [id number] Aug, [facility] [address] [facility] [id number] [place] [id number] Aug, [facility] [place] [facility] [address] [facility] [id number], [place] [address]- 1296 Aug, [facility] [address] [facility] [id number] [place] [id number] Aug, [facility] [place] [facility] [address] [facility] [id number], [place] [address]- 3895 Aug, [facility] [address] [facility] [id number] [place] [id number] Aug, [facility] [place] [facility] [address]00565100[place], [place] [address]- 6155 Aug, [facility] [address] [facility] [id number] CITY, [place] [id number] Aug, [facility] [place] [facility] [address]65100[place], [place] [address]- 0994 Aug, [facility] [address] [facility] [id number] [place] 020665480 Aug, [facility] [place] [facility] [address]65100[place], [place] [address]- 7889 Aug, [facility] [place] [facility] [address] [facility] [id number], [place] [address]- 9511 Jul, [facility] [address] [facility] [id number] [place], [place] [id number] Jun, [facility] [place] [facility] [address] [facility] [id number], [place] [address]- 7423 Jun, [facility] [place] [facility] [address] [id number], [place] [address]- 7234 Jun, [facility] [place] [facility] [address]65100[place], [place] [address]- 9406 Jun, [facility] [address] [facility] [id number] [place] [id number] Jun, [facility] [place] [facility] [address] [id number] [place] [address]- 3996 Jun, [facility] [place] [facility] [address] [facility] [id number] [place] [address]- 2546 Jun, [facility] [address] [facility] [id number] [place] 977739363 Jun, [facility] [place] [facility] [address] [id number] [place] [address]- 5758 Jun, [facility] [place] [facility] [address] [facility] [id number], [place] [address]- 4636 May, [facility] [address] [id number] [place] 069428796 May, [facility] [place] [facility] [address] [id number], [place] [address]- 9992 May, [facility] [place] [facility] [address] [id number], [place] [address]- 2619 May, [facility] [place] [facility] [address] [id number], [place] [address]- 0493 May, [facility] [place] [facility] [address] [facility] [id number], [place] [address]- 8486 May, [facility] [address] [facility] [id number] [place] 884179168 May, [facility] [place] [facility] [address] [id number], [place] [address]- 4736 May, [facility] [address] [facility] [id number] [place] [id number] May, [facility] [place] [facility] [address] [facility] [id number], [place] [address]- 2546 May, [facility] [address] [facility] [id number] [place], [place] 932715197 Apr, [facility] [place] [facility] [address] [id number], [place] [address]- 3301 Apr, [facility] [address] [facility] [id number], [place] 314567- 8787 Apr, [facility] [address] [facility] [id number] [place] 136956966 Apr, [facility] [place] [facility] [address] [id number], [place] [address]- 3661 Apr, [facility] [place] [facility] [address] [id number], [place] [address]- 7814 Apr, [facility] [address] [facility] [id number] [place], [place] [id number] Apr, [facility] [place] [facility] [address] [facility] [id number], [place] [address]- 7384 Apr, [facility] [place] [facility] [address] [facility] [id number], [place] [address]- 1095 Apr, [facility] [place] [facility] [address] [facility] [id number][place] [address]- 1624 Apr, [facility] [address] [facility] [id number] [place] [id number] Apr, [facility] [place] [facility] [address] [facility] [id number], [place] [address]- 5237 Apr, [facility] [address] [facility] [id number] [place], [place] [id number] Apr, [facility] [place] [facility] [address] [facility] [id number], [place] [address]- 2970 Apr, [facility] [address] [facility] [id number] [place], [place] [id number] Apr, [facility] [place] [facility] [address] [facility] [id number], [place] [address]- 0711 Apr, [facility] [place] [facility] [address] [facility] [id number], [place] [address]- 0378 Apr, [facility] [place] [facility] [address] [facility] [id number], [place] [address]- 9488 Apr, [facility] [address] [id number] [place] [id number] Apr, [facility] [address] [facility] [id number], [place] [address]- 0145 Mar, [facility] [address] [facility] [id number], [place] [address]- 7969 Mar, [facility] [place] [address] [id number] [place] [id number] Mar, [facility] [place] [address] [id number] [place] [id number] Mar, [facility] [place] [address] [id number] [place] [id number] Mar, [facility] [place] [address] [id number] [place] [id number] Feb, [facility] [address] [id number] [place] [id number] Feb, [facility] [place] [address] [id number] [place] [id number] Feb, [facility] [address] [facility] [id number], [place] [address] Feb, [facility] [address] [id number] [place] [id number] Feb, [facility] [address] [id number] [place] [id number] Feb, [facility] [address] [id number] [place] [id number] Feb, [facility] [address] [id number] [place] [id number] Feb, [facility] [address] [id number] [place] [id number] Feb, [facility] [address] [id number] [place] [id number] Jan, [facility] [address] [id number] [place] [id number] Jan, [facility] [place] [address] [id number] [place] [id number] Jan, [facility] [place] [address] [id number] [place] [id number] Jan, [facility] [place] [address] [id number] [place] [id number] Jan, [facility] [address] [facility] [id number] [place] [id number] Jan, [facility] [place] [address] [id number] [place] [id number] Jan, [facility] [place] [address] [id number] [place] [id number] Jan, [facility] [place] [address] [id number] [place] [id number] Dec, [facility] [place] [address] [id number] [place] [id number] November, [facility] [place] [address] [id number] [place] [id number] November, [facility] [place] [address] [id number] [place] [id number] November, [facility] [place] [address] [id number] [place] [id number] November, [facility] [place] [address] [id number] [place] [id number] November, [facility] [place] [address] [id number] [place] [id number] November, [facility] [place] [address] [id number] [place] [id number] Jul, [facility] [place] [address] [id number] [place] [id number] Jul, [facility] [place] [address] [id number] [place] [id number] Jul, [facility] [place] [address] [id number] [place] [id number] Jun, [facility] [address] [id number] [place] [id number] Jun, [facility] [place] [address] [id number] [id number] May, [facility] [place] [facility] [address] [id number], [place] [address] May, [facility] [place] [address] [id number] [place] [id number] May, [facility] [address] [facility] [id number], [place] [address] May, [facility] [place] [address] [id number] [place] [id number] May, [facility] [place] [facility] [address] [facility] [id number], [place] [address] May, [facility] [place] [address] [facility] [id number] [place] [id number] Apr, [facility] [place] [facility] [address] [facility] [id number], [place] [address] Apr, [facility] [place] [facility] [address] [facility] [id number], [place] [address] Apr, [facility] [address] [id number] [place] [id number] Apr, [facility] [place] [address] [facility] [id number] [place] [id number] Apr, [facility] [place] [facility] [address] [facility] [id number], [place] [address] Apr, [facility] [place] [facility] [address] [facility] [id number][place] Apr, [facility] [address] [id number] [place] [id number] Apr, [facility] [place] [facility] [address] [facility] [id number], [place] [address] Apr, [facility] [address] [id number] [place] [id number] Apr, [facility] [address] [id number] [place] [id number] Apr, [facility] [place] [address] [id number] [place] [id number] Mar, [facility] [place] [address] [id number] [place] [id number] Feb, [facility] [place] [address] [id number] [place] [id number] Jan, [facility] [place] [address] [id number] [place] [id number] Dec, [facility] [place] [address] [id number] [place] [id number] Dec, [facility] [place] [address] [id number] [place] [id number] Dec, [facility] [place] [address] [id number] [place] [id number] Dec, [facility] [place] [address] [id number] [place] [id number] Dec, [facility] [place] [address] [id number] [place] [id number] November, [facility] [place] [address] [id number] [place] [id number] November, [facility] [place] [address] [id number] [place] [id number] November, [facility] [address], [place] [address] November, [facility] [place] [address] [id number] [place] [id number] November, [facility] [place] [address] [id number] [place] [id number] November, [facility] [place] [address] [id number] [place] [id number] Oct, [facility] [place] [address] [id number] [place] [id number] Oct, [facility] [place] [address] [id number] [place] [id number] Oct, [facility] [place] [address] [id number] [place] [id number] Oct, [facility] [place] [address] [id number] [place] [id number] Oct, [facility] [place] [address] [id number] [place] [id number] Oct, [facility] [place] [address] [id number] [place] [id number] Sep, [facility] [place] [address] [id number] [place] [id number] Aug, [facility] [place] [address] [id number] [place] [id number] Aug, [facility] [place] [address] [id number] [place] [id number] Jul, [facility] [place] [facility] [address] [facility] [id number], [place] [address] Jun, [facility] [place] [facility] [address] [facility] [id number], [place] [address] Jun, [facility] [place] [facility] [id number], [place] [address] Jun, [facility] [place] [facility] [id number], [place] [address] Jun, [facility] [place] [facility] [address], [place] [address] May, [facility] [place] [facility] [id number], [place] [address] May, [facility] [place] [facility] [id number], [place] [address] Apr, [facility] [place] [facility] [address] [id number] [address] Apr, [facility] [place] [facility] [address] [facility] [id number], [place] [address] Apr, [facility] [place] [facility] [address] [id number], [place] [address] Feb, [facility] [place] [facility] [address] [id number], [place] [address] Aug, [facility] [place] [facility] [id number] [place] [address] 18 Jul, 2010 [facility] [address] [id number] [place] [address] 30 Jun, 2010 [facility] [address] [id number] [place] [address] May, [facility] [address] [id number] [place] [address] May, [facility] [address] [id number] [place] [address] May, [facility] [address] [id number] [address] [address], [place] [address] May, [facility] [address] [facility] [id number] [place] [address] May, [facility] [address] [facility] [id number] [place] [address] Aug, [facility] [address] [id number] [place] [address] Jun, [facility] [address] [facility] [id number] [place] [address] Jun, [facility] [address] [facility] [id number] [place] [address] Jun, [facility] [address] [id number] [place] [address] 24 May, 2009 [facility] [address] [id number], [place] [address] Apr, [facility] [address] [facility] [id number] [place] [address] 27 Apr, 2009 [facility] [place] [facility] [address] [facility] [id number] [place] [address] 15 Apr, 2009 [facility] [address] [id number] [place] [address] Jan, [facility] [address] [facility] [id number] [place] [address] Oct, [facility] [address] [facility] [id number], [place] [address] May, [facility] [address] [facility] [id number], [place] [address] May, IMMUNIZATIONS No Known Immunizations SOCIAL HISTORY Never Assessed REASON FOR VISIT Med Refill PLAN OF CARE VITAL SIGNS MEDICATIONS Medication Instructions Dosage Frequency Start Date End Date Duration Status Tresiba FlexTouch 200 unit/ml ICD10- E11.29 daily 105 units 24h Active RESULTS No Results PROCEDURES No [...] Dialysis [facility] Reveles 2012 -Dr. Simon now [facility] Medical History Colonoscopy (polyps 2 ) [...]
--- OUTSIDE RECORDS SUMMARY | 2018-02-13 13:48 | XMS REPORT ---
Author Author [facility] Address [address] [place] [address] Care Team Providers Care Deer Farmer Name Role Phone CHELSY VILLAFANA Unavailable PROBLEMS Type Condition ICD9-CM Code HMW81-AG Code Onset Dates Condition Status SNOMED Code Problem Chronic kidney disease, stage 4 (severe) N18.4 Active 551812578 Problem Psoriasis of scalp L40.9 Active 674469780 Problem Type 2 diabetes mellitus with hyperglycemia E11.65 Active 912561125333409 Problem Fibromyalgia M79.7 Active 044152808 Problem History of DVT (deep vein thrombosis) Z86.718 Active 389039218 Problem Carpal tunnel syndrome, bilateral G56.03 Active 05226064423041479 Problem Type 2 diabetes mellitus with other diabetic kidney complication E11.29 Active 435119800 Problem Anemia in other chronic diseases classified elsewhere D63.8 Active 406006690 Problem senior living 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 Active 913827865 Problem Paresthesia of right upper extremity R20.2 Active 08251882 Problem Bilateral lower extremity edema R60.0 Active 815230977 Problem Supplemental oxygen dependent Z99.81 Active 309326143146 Problem Sleep apnea in adult G47.33 Active 95406694 Problem Chronic pain syndrome G89.4 Active 160859900 Problem nremt current use of anticoagulant Z79.01 Active 846853950 Problem Essential hypertension I10 Active 48440286 Problem Gastroesophageal reflux disease without esophagitis K21.9 Active 342323255 Problem Chronic obstructive pulmonary disease, unspecified COPD type J44.9 Active 20073903 Problem 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 Active 656564971022025 Problem Primary insomnia F51.01 Active 6513737 Problem Oxygen desaturation during sleep G47.34 Active 795876287 Problem Right carpal tunnel syndrome G56.01 Active 994484273585567 Problem Diabetic polyneuropathy associated with type 2 diabetes mellitus E11.42 Active 81891094 Problem Depression, unspecified depression type F32.9 Active 74940684 ALLERGIES No Information ENCOUNTERS Encounter Location Date Diagnosis [facility] [address], [place] [address] Feb, [facility] [address], [place] [address] 2406 Jan, [facility] [address], [place] [address] 9499 Jan, [facility] [address], [place] [address] 1411 Jan, [facility] [id number] [id number] Jan, [facility] [address], [place] [address] 9333 Jan, [facility] [address], [place] [address] 1245 Jan, [facility] [address], [place] [address] 4618 Jan, Essential hypertension I10 [facility] [address], [place] [address] 7042 Jan, Chronic obstructive pulmonary disease, unspecified COPD type J44.9 [facility] [address], [place] [address] 6721 Jan, [facility] [address], [place] [address] 6587 Jan, [facility] [address], [place] [address] 4279 Jan, Type 2 diabetes mellitus with other diabetic kidney complication E11.29 ; Anemia in other chronic diseases classified elsewhere D63.8 ; Chronic obstructive pulmonary disease, unspecified COPD type J44.9 and BMI 60.0-69.9, adult Z68.44 [facility] [address], [place] [address] 9516 Jan, [facility] [address], [place] [address] 0926 Jan, [facility] [id number] [id number] Jan, [facility] [id number] [id number] Dec, [facility] [address] [id number] [id number] Dec, [facility] [id number] [place] [id number] Dec, Essential hypertension I10 ; Type 2 diabetes mellitus with other diabetic kidney complication E11.29 ; Depression, unspecified depression type F32.9 ; Supplemental oxygen dependent Z99.81 ; Chronic pain syndrome G89.4 ; Fibromyalgia M79.7 ; Carpal tunnel syndrome, bilateral G56.03 and Chronic kidney disease, stage 4 (severe) N18.4 [facility] [id number] [place] [address] 52624- 7879 Dec, Essential hypertension I10 [facility] [id number] [place] [address] 98916- 8424 November, Type 2 diabetes mellitus with other diabetic kidney complication E11.29 [facility] [id number] [place] [address] 87401- 4804 November, Chronic pain syndrome G89.4 [facility] [address], [place] [address] 0622 November, [facility] [id number] [place] [address] [id number]- 0946 November, [facility] [id number] [place] [address] 64465- 2089 November, [facility] [id number] [place] [address] 64738- 3723 Oct, Type 2 diabetes mellitus with other diabetic kidney complication E11.29 [facility] [id number] [place] [address] 95251- 8427 Oct, Primary insomnia F51.01 [facility] [address] [id number] [id number] Oct, Bilateral lower extremity edema R60.0 [facility] [address], [place] [address] 9352 Oct, [facility] [address] [place] [address] 02342- 3751 Sep, Type 2 diabetes mellitus with other diabetic kidney complication E11.29 and Chronic obstructive pulmonary disease, unspecified COPD type J44.9 [facility] [address], [place] [address] 3630 15 Aug, 2017 Type 2 diabetes mellitus with other diabetic kidney complication E11.29 [place] [address], [place] [address]- 8942 12 Aug, 2017 Gastroesophageal reflux disease without esophagitis K21.9 ; senior living current use of anticoagulant Z79.01 ; Chronic pain syndrome G89.4 ; Essential hypertension I10 and Type 2 diabetes mellitus with other diabetic kidney complication E11.29 [place] [address], [place] [address] 5615 08 Aug, 2017 Chronic pain syndrome G89.4 [facility] [address], [place] [address] 2146 Aug, Type 2 diabetes mellitus with other diabetic kidney complication E11.29 [facility] [address], [place] [address] 4523 Jul, Diabetic polyneuropathy associated with type 2 diabetes mellitus E11.42 [facility] [address], [place] [address] 1402 Jul, Primary insomnia F51.01 [facility] [address], [place] [address]- 3127 Jul, [facility] [address], [place] [address] 7778 14 [place], 2018 Type 2 diabetes mellitus with other diabetic kidney complication E11.29 and Chronic obstructive pulmonary disease, unspecified COPD type J44.9 [place] [address] [place] [address] 33832- 2182 Jul, Type 2 diabetes mellitus with other diabetic kidney complication E11.29 [facility] [facility] [id number] [place] [address] 29826- 6471 Jun, Type 2 diabetes mellitus with other diabetic kidney complication E11.29 [facility] [id number] [place] [address] 54195- 3601 Jun, [facility] [id number] [place] [address] 79153- 1993 Jun, Chronic obstructive pulmonary disease, unspecified COPD type J44.9 [facility] [facility] [id number] [place] [address] 78637- 2911 May, Type 2 diabetes mellitus with other diabetic kidney complication E11.29 [facility] [id number] [place] [address] 85318- 4659 May, senior living current use of anticoagulant Z79.01 and Essential hypertension I10 [address] [address] [id number] [place] [address] 23856- 0709 May, Anemia in other chronic diseases classified elsewhere D63.8 ; Chronic obstructive pulmonary disease, unspecified COPD type J44.9 ; Oxygen desaturation during sleep G47.34 ; Sleep apnea in adult G47.33 and Supplemental oxygen dependent Z99.81 [facility] [facility] [id number] [place] [address] 24591- 7297 May, Type 2 diabetes mellitus with other diabetic kidney complication E11.29 ; Essential hypertension I10 ; Chronic pain syndrome G89.4 ; BMI 40.0-44.9, adult Z68.41 ; Gastroesophageal reflux disease without esophagitis K21.9 ; senior living current use of anticoagulant Z79.01 ; nremt 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 ; Diabetic polyneuropathy associated with type 2 diabetes mellitus E11.42 ; Edema of both legs R60.0 and Supplemental oxygen dependent Z99.81 [facility] [address] [place] [address] 30315- 0306 May, [facility] [id number] [place] [address] 44552- 3607 May, Essential hypertension I10 and Gastroesophageal reflux disease without esophagitis K21.9 [facility] [id number] [place] [address] 69424- 5012 May, [facility] [id number] [place] [address] 60419- 5708 May, Type 2 diabetes mellitus with other diabetic kidney complication E11.29 and nremt current use of anticoagulant Z79.01 [place] [id number] [place] [address] 36841- 0996 Apr, Chronic pain syndrome G89.4 and Essential hypertension I10 [facility] [facility] [id number] [place] [address] 28129- 4969 Apr, Type 2 diabetes mellitus with other diabetic kidney complication E11.29 [facility] [id number] [place] [address] 38608- 1906 Apr, Type 2 diabetes mellitus with other diabetic kidney complication E11.29 [facility] [id number] [place] [address] 56600- 9733 Apr, Essential hypertension I10 [facility] [id number] [place] [address] 60373- 5314 Apr, Gastroesophageal reflux disease without esophagitis K21.9 [facility] [id number] [place] [address] 40382- 7576 Apr, Type 2 diabetes mellitus with other diabetic kidney complication E11.29 [facility] [id number] [place] [address] 82628- 4803 Apr, Type 2 diabetes mellitus with other diabetic kidney complication E11.29 and nremt current use of anticoagulant Z79.01 [place] [id number] [place] [address] 18992- 3512 Mar, Encounter for immunization Z23 and Preoperative examination Z01.818 [place] [id number] [place] [address] 76155- 1105 Mar, [place] [id number] [place] [address] 94049- 3676 Mar, Type 2 diabetes mellitus with other diabetic kidney complication E11.29 [place] [address] 31882- 3203 08 Mar, 2017 Type 2 diabetes mellitus with other diabetic kidney complication E11.29 [facility] [facility] [id number] [place] [address] 59950- 9818 06 Mar, 2017 Gastroesophageal reflux disease without esophagitis K21.9 [facility] [id number] [place] [address] 44040- 6667 Mar, Essential hypertension I10 [place] [address] 03720- 6568 Feb, senior living current use of anticoagulant Z79.01 [place] [id number] [place] [address] 56997- 1523 Feb, Type 2 diabetes mellitus with other diabetic kidney complication E11.29 [facility] [id number] [place] [address] 17248- 6257 Feb, Type 2 diabetes mellitus with other diabetic kidney complication E11.29 [facility] [id number] [place] [address] 29041- 6083 Feb, Type 2 diabetes mellitus with other diabetic kidney complication E11.29 [facility] [id number] [place] [address] 63562- 7509 Feb, Gastroesophageal reflux disease without esophagitis K21.9 [place] [id number] [place] [address] 52605- 9002 Feb, Type 2 diabetes mellitus with other diabetic kidney complication E11.29 [place] [id number] [place] [address] 20927- 0038 Feb, nremt current use of anticoagulant Z79.01 [facility] [address], [place] [address]- 9470 Jan, Type 2 diabetes mellitus with other diabetic kidney complication E11.29 [facility] [address], [place] [address]- 0793 Jan, Type 2 diabetes mellitus with other diabetic kidney complication E11.29 [facility] [address], [place] [address]- 2425 Jan, Chronic pain syndrome G89.4 [facility] [address], [place] [address]- 0472 Jan, [facility] [address], [place] [address]- 8741 Jan, [facility] [address], [place] [address]- 0391 Jan, [facility] [address], [place] [address]- 3017 Jan, [facility] [address], [place] [address]- 2975 Jan, Primary insomnia F51.01 ; Type 2 diabetes mellitus with other diabetic kidney complication E11.29 ; Chronic pain syndrome G89.4 and Essential hypertension I10 [facility] [address], [place] [address]- 8168 Jan, Primary insomnia F51.01 [facility] [address], [place] [address]- 1817 Jan, Type 2 diabetes mellitus with other diabetic kidney complication E11.29 [facility] [address], [place] [address]- 1047 Jan, [facility] [address], [place] [address]- 6778 Jan, Chronic obstructive pulmonary disease, unspecified COPD type J44.9 [facility] [address], [place] [address]- 4547 Jan, Essential hypertension I10 ; Type 2 [...] associated with type 2 diabetes mellitus E11.42 [facility] [id number] [place] [address] 09879- 6889 Jan, Gastroesophageal reflux disease without esophagitis K21.9 [facility] [id number] [place] [address] 39116- 5297 Dec, [place] [id number] [place] [address] 28037- 8311 Dec, [place] [id number] [place] [address] 04840- 7781 Dec, senior living current use of anticoagulant Z79.01 ; Chronic pain syndrome G89.4 and Essential hypertension I10 [place] [id number] [place] [address] 24093- 9639 Dec, [facility] [id number] [place] [address] 52446- 1171 Dec, Type 2 diabetes mellitus with other diabetic kidney complication E11.29 [facility] [address] [place] [address] 58519- 1608 Dec, [facility] [id number] [place] [address] 00566- 7786 Dec, Gastroesophageal reflux disease without esophagitis K21.9 [facility] [id number] [place] [address] 78845- 8171 November, Type 2 diabetes mellitus with other diabetic kidney complication E11.29 [place] [id number] [place] [address] 25080- 4637 November, [facility] [address], [place] [address]- 1768 November, Type 2 diabetes mellitus with other diabetic kidney complication E11.29 [facility] [address], [place] [address]- 6186 November, [facility] [id number] [place] [address] 71387- 8290 November, Type 2 diabetes mellitus with other diabetic kidney complication E11.29 [facility] [id number] [place] [address] 86822- 1284 November, [facility] [id number] [place] [address] 06969- 0105 Oct, Essential hypertension I10 [facility] [id number] [place] [address] 60281- 1705 Oct, Psoriasis of scalp L40.9 [facility] [id number] [place] [address] 42077- 1335 Oct, Essential hypertension I10 and Chronic pain syndrome G89.4 [facility] [id number] [place] [address] 19110- 5719 Oct, [facility] [id number] [place] [address] 69935- 0712 Sep, Type 2 diabetes mellitus with other diabetic kidney complication E11.29 [facility] [address], [place] [address]- 7195 Sep, [facility] [address] [place] [address] 29070- 0240 Sep, Type 2 diabetes mellitus with other diabetic kidney complication E11.29 [facility] [address], [place] [address]- 8760 Sep, Type 2 diabetes mellitus with other diabetic kidney complication E11.29 [facility] [id number] [place] [address] 01161- 3488 Sep, Type 2 diabetes mellitus with other diabetic kidney complication E11.29 ; Chronic kidney disease, stage 4 (severe) N18.4 ; Chronic obstructive pulmonary disease, unspecified COPD type J44.9 ; Iron deficiency anemia due to chronic blood loss D50.0 ; nremt current use of anticoagulant Z79.01 ; Gastroesophageal reflux disease without esophagitis K21.9 ; Essential hypertension I10 ; Primary insomnia F51.01 ; Depression, unspecified depression type F32.9 ; Chronic pain syndrome G89.4 ; Wrist pain, right M25.531 ; Paresthesia of right upper extremity R20.2 and Psoriasis of scalp L40.9 [place] [address] 12951- 7633 Sep, [place] [address] 22421- 2043 Aug, Essential hypertension I10 [place] [address] 91979- 2931 Aug, History of DVT (deep vein thrombosis) Z86.718 [place] [id number] [place] [address] 35151- 1538 Aug, [place] [address] 84311- 8909 Jul, [place] [id number] [place] [address] 87351- 3664 Jul, [place] [address] 97483- 0377 Jul, senior living current use of anticoagulant Z79.01 ; Chronic pain syndrome G89.4 and Chronic kidney disease, stage 4 (severe) N18.4 [place] [address] 49992- 1275 Jul, [place] [id number] [place] [address] 81816- 2641 Jul, [place] [address] 20337- 3498 Jul, [place] [id number], [place] [address]- 1559 Jul, [place] [address], [place] [address]- 9204 Jul, [place] [address], [place] [address]- 0476 Jul, Type 2 diabetes mellitus with other diabetic kidney complication E11.29 [place] [address], [place] [address]- 6353 16 Jul, 2016 History of DVT (deep vein thrombosis) Z86.718 [place] [address] [place] [address] 81863- 8373 23 Jun, [address], [place] [address]- 0920 19 Jun, 2016 History of DVT (deep vein thrombosis) Z86.718 [place] [address], [place] [address]- 0084 15 Jun, 2016 Post traumatic stress disorder (PTSD) F43.[address], [place] [address]- 0957 07 Jun, 2016 Type 2 diabetes mellitus [...] pain M79.641 and Right wrist pain M25.531 [facility] [address], [place] [address]- 6146 28 May, 2016 [facility] [id number] [place] [address] 74285 2546 May, [facility] [id number] [place] [address] 13500 2546 May, [facility] [id number] [place] [address] 00578- 1832 15 May, 2016 [facility] [id number] [place] [address] 81965- 0155 11 May, 2016 Anemia in other chronic diseases classified elsewhere D63.8 [facility] [id number] [place] [address] 03511- 8966 May, [facility] [id number] [place] [address] 65608- 5278 10 Apr, 2016 [facility] [address] [place] [address] 04219- 5731 27 Mar, 2016 Dermatofibroma D23.9 [facility] [id number] [place] [address] 85404- 1426 20 Mar, 2016 [facility] [address] [place] [address] 32818- 3730 14 Mar, 2016 Chronic pain syndrome G89.4 [facility] [address] [place] [address] 42110- 2549 09 Mar, 2016 [facility] [id number], [place] [address] 2546 07 Mar, 2016 [facility] [id number] [place] [address] 36235- 2546 06 Mar, 2016 [facility] [address], [place] [address]- 2545 30 Feb, 2016 [facility] [address], [place] [address]- 2572 Feb, [facility] [id number] [place] [address] 84830- 2481 Feb, [facility] [address] [place] [address] 12555- 0079 Feb, [facility] [id number] [place] [address] 39679- 4088 Feb, [facility] [id number] [place] [address] 17694- 1322 Feb, [place] [id number] [place] [address] 44217- 0504 Feb, Type 2 diabetes mellitus with other [...] Renal failure, chronic, stage 4 (severe) N18.4 [place] [address] [place] [address] 67722- 4060 Feb, Skin tags, multiple acquired L91.8 [facility] [address] [place] [address] [phone] Jan, [facility] [id number] [place] [id number] Jan, Dental examination Z01.20 [facility] [id number] [place] [address] [phone] Jan, [facility] [address] [place] [id number] [place] [address] [phone] Jan, Type 2 diabetes mellitus with other [...] Renal failure, chronic, stage 4 (severe) N18.4 [facility] [place] [address] [place] [id number] [place] [address] 7[address]39- 5705 Dec, Diabetes type 2, uncontrolled E11.65 [place] [id number] [place] [address] 55205- 7014 Dec, [address] [address]- [address] Dec, Type 2 diabetes mellitus with other [...] unspecified depression type F32.9 [facility] [address] [place] [address] [id number] Dec, Dental caries K02.9 [facility] [address] [id number][place] [id number] Dec, [facility] [address] [place] [address] [id number] Dec, Dental examination Z01.20 [facility] [address] [id number][place] [id number] November, Dental examination Z01.20 and Dental caries K02.9 [facility] [address] [id number], [place] [id number] Oct, [facility] [address] [id number] [place] [id number] Oct, [facility] [address] [id number] [place] [id number] Sep, [facility] [address] [id number] [place] [id number] Sep, [facility] [address] [id number] [place] [id number] Sep, [facility] [address] [id number] [place] [id number] Sep, Other chronic pain 338.29 [facility] [address] [id number] [place] [address] [id number] Aug, Diabetes type 2, uncontrolled E11.65 and Morbid obesity due to excess calories E66.01 [facility] [address] [id number] [place] [address] [id number] Aug, Hair loss L65.9 [facility] [address] [id number], [place] [id number] Aug, [facility] [address] [id number] [place] [address] [id number] Jul, [facility] [address] [id number] [place] [address] [id number] Jul, [facility] [address] [id number] [place] [address] [id number] Jun, [facility] [address] [id number] [place] [address] [id number] Jun, Hair loss L65.9 and Disorder of the skin and subcutaneous tissue, unspecified L98.9 [facility] [address] [id number] [place] [address] [id number] May, Type 2 diabetes mellitus with other diabetic kidney complication E11.29 ; Type 2 diabetes mellitus with hyperglycemia E11.65 ; Morbid obesity due to excess calories E66.01 and Essential hypertension I10 [place] [id number] [place] [address] [id number] May, Diabetes type 2, uncontrolled E11.65 ; Encounter for immunization Z23 and Morbid obesity due to excess calories E66.01 [place] [id number] [place] [address] [id number] May, [facility] [address] [address]- [address]84 Apr, [place] [id number] [place] [address] [id number] Apr, Hyperglycemia R73.[address] [id number] Apr, [place] [id number] [place] [address] [id number] Apr, Depression F32.9 ; Encounter for immunization Z23 ; Hyperglycemia R73.9 and Anemia in other chronic diseases classified elsewhere D63.8 [facility] [id number], [place] [id number] Mar, [place] [id number] [place] [address] [id number] Feb, Positive occult stool blood test 792.1 [place] [id number] [place] [address] [id number] Feb, Depression 311 ; Other chronic pain 338.29 and Diabetes with renal manifestations, type II or unspecified type, not stated as uncontrolled 250.40 [facility] [address]00565100[place] [address]- [address]509 Feb, Occult blood in stools 792.1 [place] [id number] [place] [address] [id number] Feb, Anemia 285.9 ; Occult blood positive stool 792.1 ; Unspecified essential hypertension 401.9 and Other chronic pain 338.[id number] [place] [address] [id number] Feb, [address] [id number], [place] [id number] Feb, Anemia 285.9 [facility] [id number], [place] [id number] Feb, [facility] [id number] [place] [address] [id number] Feb, [facility] [id number] [place] [address] [id number] Feb, Diabetes with renal manifestations, type II or unspecified type, not stated as uncontrolled 250.40 ; Other chronic pain 338.29 ; Unspecified essential hypertension 401.9 ; Anemia 285.9 and Depression 311 [facility] [id number] [place] [address] [id number] Jan, [facility] [address] [place] [id number] [place] [address] [id number] Jan, Anemia 285.9 and Follow up V67.9 [facility] [id number] [place] [address] [id number] Jan, [facility] [id number], [place] [id number] Jan, [facility] [id number] [place] [address] [id number] Jan, [facility] [address] [place] [id number] [place] [address] [id number] Dec, [facility] [address]00565100[place], [place] [address] 2546 Oct, [facility] [id number] [place] [address] 49264- 2546 Oct, [facility] [address] [place] [address] 90650- 2546 Sep, [facility] [id number] [place] [address] [id number] Sep, [facility] [id number] [place] [address] 48079- 2546 Sep, [facility] [id number] [place] [address] [id number] Aug, [facility] [place] [facility] [address] [facility] [id number], [place] [address]- 3131 Aug, [facility] [place] [facility] [address] [facility] [id number], [place] [address]- 6236 Aug, [facility] [place] [address] [facility] [id number][place] [id number] Aug, [facility] [place] [facility] [address] [facility] [id number], [place] [address]- 4816 Aug, [facility] [place] [facility] [address] [facility] [id number] [place] [address]- 7669 Aug, [facility] [place] [address] [facility] [id number], [place] [id number] Aug, [facility] [place] [facility] [address] [place] [id number], [place] [address]- 1313 Aug, [facility] [place] [address] [facility] [id number], [place] [id number] Jul, [facility] [place] [facility] [address] [facility] [id number], [place] [address]- 2914 Jul, [facility] [place] [facility] [address] [place] [id number], [place] [address]- 2196 Jul, [facility] [place] [address] [facility] [id number], [place] [id number] Jul, [facility] [place] [facility] [address] [facility] [id number], [place] [address]- 0676 Jul, [facility] [place] [address] [facility] [id number], [place] [id number] Jul, [facility] [place] [facility] [address] [facility] [id number], [place] [address]- 6306 Jul, [facility] [place] [address] [facility] [id number], [place] [id number] Jun, [facility] [place] [address] [facility] [id number], [place] [id number] Jun, [facility] [place] [facility] [address] [facility] [id number], [place] [address]- 4364 Jun, [facility] [place] [facility] [address] [facility] [id number] [place] [address]- 4103 Jun, [facility] [place] [address] [facility] [id number] [place] [id number] Jun, [facility] [place] [facility] [address] [facility] [id number], [place] [address]- 5106 Jun, [facility] [place] [address] [facility] [id number], [place] [id number] May, [facility] [place] [facility] [address] [facility] [id number] [place] [address]- 3523 May, [facility] [place] [facility] [address] [facility] [id number] [place] [address]- 2683 May, [facility] [place] [address] [facility] [id number], [place] [id number] Apr, [facility] [place] [facility] [address] [facility] [id number], [place] [address]- 9899 Apr, [facility] [place] [address] [facility] [id number] [place] [id number] Apr, [facility] [place] [address] [facility] [id number], [place] [id number] Apr, [facility] [place] [facility] [address] [facility] [id number], [place] [address]- 7605 Apr, [facility] [place] [facility] [address] [facility] [id number], [place] [address]- 7791 Apr, [facility] [place] [address] [facility] [id number], [place] [id number] Mar, [facility] [place] [facility] [address] [facility] [id number][place] [address]- 0957 Mar, [facility] [place] [address] [facility] [id number][place] [id number] Mar, [facility] [place] [facility] [address] [facility] [id number], [place] [address]- 4235 Mar, [facility] [place] [address] [id number] [place] [id number] Mar, [facility] [place] [facility] [address] [id number] [place] [address]- 7338 Mar, [facility] [place] [address] [id number] [place] [id number] Mar, [facility] [place] [facility] [address] [id number], [place] [address]- 4950 Mar, [facility] [place] [address] [id number] [place] [id number] Mar, [facility] [place] [facility] [address] [id number] [place] [address]- 0833 Mar, [facility] [place] [address] [id number] [place] [id number] Feb, [facility] [place] [facility] [address] [id number], [place] 843384- 8249 Feb, [facility] [place] [address] [facility] [id number] [place] [id number] Jan, [facility] [place] [facility] [address] [facility] [id number], [place] [address]- 6017 Jan, [facility] [place] [address] [facility] [id number], [place] [id number] Jan, [facility] [place] [facility] [address] [id number], [place] 957770- 2315 Jan, [facility] [place] [address] [id number], [place] [id number] Jan, [facility] [place] [facility] [address] [id number], [place] [address]- 6760 Jan, [facility] [place] [facility] [address] [facility] [id number] [place] 6410[place]- 4993 Dec, [facility] [place] [facility] [address] [id number] [place] 4079[place]- 3378 Dec, [facility] [place] [address] [facility] [id number], [place] [id number] November, [facility] [place] [facility] [address] [id number] [place] [address]- 2736 November, [facility] [place] [address] [facility] [id number] [place] [id number] November, [facility] [place] [facility] [address] [id number] [place] [address]- 9726 November, [facility] [place] [address] [facility] [id number] [place] [id number] Oct, [facility] [place] [facility] [address] [id number] [place] [address]- 1169 Oct, [facility] [place] [facility] [address] [id number] [place] [address]- 6293 Oct, [facility] [place] [facility] [address] [facility] [id number] [place] [address]- 3110 Oct, [facility] [place] [facility] [address] [facility] [id number] [place] [address]- 2505 Oct, [facility] [place] [facility] [address] [id number] [place] [address]- 4152 Oct, [facility] [place] [address] [id number] [place] [id number] Sep, [facility] [place] [address] [facility] [id number] [place] [id number] Sep, [facility] [place] [facility] [address] [facility] [id number] [place] [address]- 9655 Sep, [facility] [place] [facility] [address] [id number] [place] [address]- 1925 Sep, [facility] [place] [address] [facility] [id number] [place] [id number] Sep, [facility] [place] [facility] [address] [facility] [id number] [place] [address]- 7835 Sep, [facility] [place] [facility] [address] [facility] [id number] [place] [address]- 8719 Aug, [facility] [place] [facility] [address] [facility] [id number], [place] [address]- 2589 Aug, [facility] [place] [address] [id number] [place] [id number] Aug, [facility] [place] [address] [facility] [id number] [place] [id number] Aug, [facility] [place] [facility] [address] [facility] [id number], [place] [address]- 6116 Aug, [facility] [place] [address] [facility] [id number] [place] [id number] Aug, [facility] [place] [facility] [address] [facility] [id number], [place] [address]- 7356 Aug, [facility] [place] [address] [facility] [id number] [place] [id number] Aug, [facility] [place] [facility] [address]00565100[place], [place] [address]- 5954 Aug, [facility] [place] [address] [facility] [id number], [place] [id number] Aug, [facility] [place] [facility] [address]00565100[place], [place] [address]- 5927 Aug, [facility] [place] [address] [facility] [id number], [place] [id number] Aug, [facility] [place] [facility] [address]00565100[place], [place] [address]- 4773 Aug, [facility] [place] [facility] [address] [facility] [id number], [place] [address]- 4790 Jul, [facility] [place] [address] [facility] [id number], [place] [id number] Jun, [facility] [place] [facility] [address] [facility] [id number], [place] [address]- 0683 Jun, [facility] [place] [facility] [address] [id number], [place] [address]- 2620 Jun, [facility] [place] [facility] [address]00565100[place], [place] [address]- 5296 Jun, [facility] [place] [address] [facility] [id number] [place] [id number] Jun, [facility] [place] [facility] [address] [id number] [place] [address]- 9186 Jun, [facility] [place] [facility] [address] [facility] [id number] [place] [address]- 2546 Jun, [facility] [place] [address] [facility] [id number], [place] [id number] Jun, [facility] [place] [facility] [address] [id number] [place] [address]- 2241 Jun, [facility] [place] [facility] [address] [facility] [id number], [place] [address]- 5566 May, [facility] [place] [address] [id number][place] [id number] May, [facility] [place] [facility] [address] [id number], [place] [address]- 7629 May, [facility] [place] [facility] [address] [id number], [place] [address]- 1743 May, [facility] [place] [facility] [address] [id number], [place] [address]- 7569 May, [facility] [place] [facility] [address] [facility] [id number], [place] [address]- 3570 May, [facility] [place] [address] [facility] [id number], [place] 930608430 May, [facility] [place] [facility] [address] [id number], [place] [address]- 6236 May, [facility] [place] [address] [facility] [id number], [place] 471014769 May, [facility] [place] [facility] [address] [facility] [id number], [place] [address]- 2546 May, [facility] [place] [address] [facility] [id number], [place] 227454435 Apr, [facility] [place] [facility] [address] [id number], [place] [address]- 1949 Apr, [facility] [address] [facility] [id number], [place] 265005- 5716 Apr, [facility] [address] [facility] [id number], [place] 462419361 Apr, [facility] [place] [facility] [address] [id number], [place] [address]- 1897 Apr, [facility] [place] [facility] [address] [id number], [place] [address]- 5889 Apr, [facility] [address] [facility] [id number], [place] 834629298 Apr, [facility] [place] [facility] [address] [facility] [id number], [place] [address]- 4442 Apr, [facility] [place] [facility] [address] [facility] [id number], [place] [address]- 0533 Apr, [facility] [place] [facility] [address] [facility] [id number], [place] [address]- 6523 Apr, [facility] [address] [facility] [id number], [place] [id number] Apr, [facility] [place] [facility] [address] [facility] [id number], [place] [address]- 8806 Apr, [facility] [address] [facility] [id number], [place] 634920489 Apr, [facility] [place] [facility] [address] [facility] [id number], [place] [address]- 6181 Apr, [facility] [address] [facility] [id number], [place] [id number] Apr, [facility] [place] [facility] [address] [facility] [id number], [place] [address]- 5150 Apr, [facility] [place] [facility] [address] [facility] [id number], [place] [address]- 5880 Apr, [facility] [place] [facility] [address] [facility] [id number], [place] [address]- 6687 Apr, [facility] [place] [address] [id number] [place] 128805966 Apr, [facility] [address] [facility] [id number], [place] [address]- 3444 Mar, [facility] [address] [facility] [id number], [place] [address]- 4551 Mar, [facility] [place] [address] [id number] [place] 024154669 Mar, [facility] [place] [address] [id number] [place] 619990798 Mar, [facility] [place] [address] [id number] [place] 497647773 Mar, [facility] [place] [address] [id number] [place] 712446511 Feb, [facility] [place] [address] [id number] [place] 438648050 Feb, [facility] [place] [address] [id number] [place] 143459082 Feb, [facility] [address] [facility] [id number], [place] [address]- 5761 Feb, [facility] [place] [address] [id number] [place] 156794156 Feb, [facility] [place] [address] [id number] [place] 838747927 Feb, [facility] [place] [address] [id number] [place] 541155023 Feb, [facility] [place] [address] [id number] [place] 252975492 Feb, [facility] [place] [address] [id number] [place] 419132460 Feb, [facility] [place] [address] [id number] [place] 700274772 Jan, [facility] [place] [address] [id number] [place] 592778261 Jan, [facility] [place] [address] [id number] [place] 443635064 Jan, [facility] [place] [address] [id number] [place] 7[place]65847 Jan, [facility] [place] [address] [id number] [place] 7[place]20[place] Jan, [facility] [address] [facility] [id number] [place] 70025399- 5192 Jan, [facility] [place] [address] [id number] [place] 18[place]77[place] Jan, [facility] [place] [address] [id number] [place] 524793383 Jan, [facility] [place] [address] [id number] [place] 365[place]206 Dec, [facility] [place] [address] [id number] [place] 058[place]3242 November, [facility] [place] [address] [id number] [place] 322266213 November, [facility] [place] [address] [id number] [place] 137248214 November, [facility] [place] [address] [id number] [place] 75[place]33882 November, [facility] [place] [address] [id number] [place] [id number] November, [facility] [place] [address] [id number] [place] 033548755 November, [facility] [place] [address] [id number] [place] [id number] Jul, [facility] [place] [address] [id number] [place] [id number] Jul, [facility] [place] [address] [id number] [place] [id number] Jul, [facility] [place] [address] [id number] [place] [id number] Jun, [facility] [address] [id number] [place] [id number] Jun, [facility] [place] [address] [id number][place] [id number] May, [facility] [place] [facility] [address] [id number], [place] [address] May, [facility] [place] [address] [id number][place] [id number] May, [facility] [address] [facility] [id number], [place] [address] May, [facility] [place] [address] [id number][place] [id number] May, [facility] [place] [facility] [address] [facility] [id number], [place] [address] May, [facility] [place] [address] [facility] [id number][place] [id number] Apr, [facility] [place] [facility] [address] [facility] [id number], [place] [address] Apr, [facility] [place] [facility] [address] [facility] [id number], [place] [address] Apr, [facility] [place] [address] [id number][place] [id number] Apr, [facility] [place] [address] [facility] [id number][place] [id number] Apr, [facility] [place] [facility] [address] [facility] [id number], [place] [address] Apr, [facility] [place] [facility] [address] [facility] [id number], [place]3434[place] [address] Apr, [facility] [place] [address] [id number][place] [id number] Apr, [facility] [place] [facility] [address] [facility] [id number], [place] [address] Apr, [facility] [place] [address] [id number][place] [id number] Apr, [facility] [place] [address] [id number], [place] [id number] Apr, [facility] [place] [address] [id number][place] [id number] Mar, [facility] [place] [address] [id number] [place] [id number] Feb, [facility] [place] [address] [id number] [place] [id number] Jan, [facility] [place] [address] [id number] [place] [address] Dec, [facility] [place] [address] [id number] [place] [id number] Dec, [facility] [place] [address] [id number] [place] [id number] Dec, [facility] [place] [address] [id number] [place] [id number] Dec, [facility] [place] [address] [id number] [place] [id number] Dec, [facility] [place] [address] [id number] [place] [id number] November, [facility] [place] [address] [id number] [place] [id number] November, [facility] [place] [address] [id number] [place] [id number] November, [facility] [id number], [place] [address] November, [facility] [place] [address] [id number] [place] [id number] November, [facility] [place] [address] [id number] [place] [id number] November, [facility] [place] [address] [id number] [place] [id number] Oct, [facility] [place] [address] [id number] [place] [id number] Oct, [facility] [place] [address] [id number] [place] [id number] Oct, [facility] [place] [address] [id number] [place] [id number] Oct, [facility] [place] [address] [id number] [place] [id number] Oct, [facility] [place] [address] [id number] [place] [id number] Oct, [facility] [place] [address] [id number] [place] [id number] Sep, [facility] [place] [address] [id number] [place] [id number] Aug, [facility] [place] [address] [id number] [place] [id number] Aug, [facility] [place] [address] [id number] [place] [id number] Jul, [facility] [place] [facility] [address] [facility] [id number], [place] [address] Jun, [facility] [place] [facility] [address] [facility] [id number], [place] [address] Jun, [facility] [place] [facility] [id number], [place] [address] Jun, [facility] [place] [facility] [id number], [place] [address] Jun, [facility] [place] [facility] [id number], [place] [address] May, [facility] [place] [facility] [id number], [place] [address] May, [facility] [place] [facility] [id number], [place] [address] Apr, [facility] [place] [facility] [address] [id number], [place] [address] Apr, [facility] [place] [facility] [address] [facility] [id number], [place] [address] Apr, [facility] [place] [facility] [address] [id number], [place] [address] Feb, [facility] [place] [facility] [address] [id number], [place] [address] Aug, [facility] [place] [facility] [id number] [place] [address] 18 Jul, 2010 [facility] [address] [id number] [place] [address] 30 Jun, 2010 [facility] [address] [address] [id number] [place] [address] May, [facility] [address] [id number] [place] [address] May, [facility] [address] [id number] [place] [address] May, [facility] [address] [id number] [place] [address], [place] [address] May, [facility] [address] [facility] [id number] [place] [address] May, [facility] [address] [facility] [id number] [place] [address] Aug, [facility] [address] [id number] [place] [address] Jun, [facility] [address] [facility] [id number] [place] [address] Jun, [facility] [address] [facility] [id number] [place] [address] Jun, [facility] [address] [id number] [place] [address] 24 May, 2009 [facility] [address] [id number], [place] [address] Apr, [facility] [address] [facility] [id number] [place] [address] 27 Apr, 2009 [facility] [place] [facility] [address] [facility] [id number] [place] [address] 15 Apr, 2009 [facility] [address] [id number] [place] [address] Jan, [facility] [address] [facility] [id number] [place] [address] Oct, [facility] [address] [facility] [id number], [place] [address] May, [facility] [address] [facility] [id number], [place] [address] May, IMMUNIZATIONS No Known Immunizations SOCIAL HISTORY [...] Dialysis [facility] 2012 -Dr. Simon now [facility] Medical History Colonoscopy (polyps 2 ) [...]
--- OUTSIDE RECORDS SUMMARY | 2018-02-13 13:49 | XMS REPORT ---
Author Author CHELSY VILLAFANA [facility] Address [address] [place] [address] Care Team Providers Care Title Coordinator Name Role Phone CHELSY VILLAFANA Unavailable PROBLEMS Type Condition ICD9-CM Code SIC78-NO Code Onset Dates Condition Status SNOMED Code Problem Chronic kidney disease, stage 4 (severe) N18.4 Active 415368371 Problem Psoriasis of scalp L40.9 Active 934095471 Problem Type 2 diabetes mellitus with hyperglycemia E11.65 Active 575131426625846 Problem Fibromyalgia M79.7 Active 017404690 Problem History of DVT (deep vein thrombosis) Z86.718 Active 709542417 Problem Carpal tunnel syndrome, bilateral G56.03 Active 39085693634767779 Problem Type 2 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 Active 283517726 Problem Anemia in other chronic diseases classified elsewhere D63.8 Active 923342848 Problem prison 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 Active 369299372 Problem Paresthesia of right upper extremity R20.2 Active 62619757 Problem Bilateral lower extremity edema R60.0 Active 740803424 Problem Supplemental oxygen dependent Z99.81 Active 055524722220 Problem Sleep apnea in adult G47.33 Active 12632209 Problem Chronic pain syndrome G89.4 Active 007223988 Problem 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 Active 868299558 Problem Essential hypertension I10 Active 61862427 Problem Gastroesophageal reflux disease without esophagitis K21.9 Active 925987744 Problem Chronic obstructive pulmonary disease, unspecified COPD type J44.9 Active 09795108 Problem 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 Active 854289288305978 Problem Primary insomnia F51.01 Active 2501427 Problem Oxygen desaturation during sleep G47.34 Active 218457093 Problem Right carpal tunnel syndrome G56.01 Active 772059829916943 Problem Diabetic polyneuropathy associated with type 2 diabetes mellitus E11.42 Active 25767724 Problem Depression, unspecified depression type F32.9 Active 73425219 ALLERGIES No Information ENCOUNTERS Encounter Location Date Diagnosis [facility] [address], [place] [address] Feb, [facility] [address], [place] [address] 1154 Jan, [facility] [address], [place] [address] 4836 Jan, [facility] [address], [place] [address] 4[address] Jan, [facility] [id number] [id number] Jan, [facility] [address], [place] [address] 5[address] Jan, [facility] [address], [place] [address] 3108 Jan, [facility] [address], [place] [address] 2119 Jan, Essential hypertension I10 [facility] [address], [place] [address] 1288 Jan, Chronic obstructive pulmonary disease, unspecified COPD type J44.9 [facility] [address], [place] [address] 3264 Jan, [facility] [address], [place] [address] 1523 Jan, [facility] [address], [place] [address] 1619 Jan, Type 2 diabetes mellitus with other diabetic kidney complication E11.29 ; Anemia in other chronic diseases classified elsewhere D63.8 ; Chronic obstructive pulmonary disease, unspecified COPD type J44.9 and BMI 60.0-69.9, adult Z68.44 [facility] [address], [place] [address] 7249 Jan, [facility] [address], [place] [address] 6896 Jan, [facility] [id number] [id number] Jan, [facility] [id number] [id number] Dec, [facility] [address] [id number] [id number] Dec, [facility] [id number] [place] [id number] Dec, Essential hypertension I10 ; Type 2 diabetes mellitus with other diabetic kidney complication E11.29 ; Depression, unspecified depression type F32.9 ; Supplemental oxygen dependent Z99.81 ; Chronic pain syndrome G89.4 ; Fibromyalgia M79.7 ; Carpal tunnel syndrome, bilateral G56.03 and Chronic kidney disease, stage 4 (severe) N18.4 [facility] [id number] [place] [address] 02249- 6230 Dec, Essential hypertension I10 [facility] [id number] [place] [address] 98100- 4020 November, Type 2 diabetes mellitus with other diabetic kidney complication E11.29 [facility] [id number] [place] [address] 55708- 7338 November, Chronic pain syndrome G89.4 [facility] [id number] [address] 8806 November, [facility] [id number] [place] [address] 49080398- 7106 November, [facility] [id number] [place] [address] 31587- 1016 November, [facility] [id number] [place] [address] 81023- 6746 Oct, Type 2 diabetes mellitus with other diabetic kidney complication E11.29 [facility] [id number] [place] [address] 71353- 4642 Oct, Primary insomnia F51.01 [facility] [address] [id number] [id number] Oct, Bilateral lower extremity edema R60.0 [facility] [address], [place] [address] 3954 Oct, [facility] [address] [place] [address] 37746- 0261 Sep, Type 2 diabetes mellitus with other diabetic kidney complication E11.29 and Chronic obstructive pulmonary disease, unspecified COPD type J44.9 [facility] [address], [place] [address] 7574 15 Aug, 2017 Type 2 diabetes mellitus with other diabetic kidney complication E11.29 [facility] [address], [place] [address] 1053 12 Aug, 2017 Gastroesophageal reflux disease without esophagitis K21.9 ; prison current use of anticoagulant Z79.01 ; Chronic pain syndrome G89.4 ; Essential hypertension I10 and Type 2 diabetes mellitus with other diabetic kidney complication E11.29 [facility] [address], [place] [address]- 1322 08 Aug, 2017 Chronic pain syndrome G89.4 [facility] [address], [place] [address] 3198 Aug, Type 2 diabetes mellitus with other diabetic kidney complication E11.29 [facility] [address], [place] [address] 0777 Jul, Diabetic polyneuropathy associated with type 2 diabetes mellitus E11.42 [facility] [address], [place] [address] 8945 Jul, Primary insomnia F51.01 [facility] [address], [place] [address] 5949 Jul, [facility] [address], [place] [address] 3362 14 [place], 2018 Type 2 diabetes mellitus with other diabetic kidney complication E11.29 and Chronic obstructive pulmonary disease, unspecified COPD type J44.9 [facility] [address] [place] [address] 02604- 4197 Jul, Type 2 diabetes mellitus with other diabetic kidney complication E11.29 [facility] [id number] [place] [address] 24631- 0607 Jun, Type 2 diabetes mellitus with other diabetic kidney complication E11.29 [facility] [id number] [place] [address] 96856- 5715 Jun, [facility] [id number] [place] [address] 70403- 7277 Jun, Chronic obstructive pulmonary disease, unspecified COPD type J44.9 [facility] [id number] [place] [address] 88605- 8109 May, Type 2 diabetes mellitus with other diabetic kidney complication E11.29 [facility] [id number] [place] [address] 68437- 3561 May, prison current use of anticoagulant Z79.01 and Essential hypertension I10 [id number] [place] [address] 88873- 4132 May, Anemia in other chronic diseases classified elsewhere D63.8 ; Chronic obstructive pulmonary disease, unspecified COPD type J44.9 ; Oxygen desaturation during sleep G47.34 ; Sleep apnea in adult G47.33 and Supplemental oxygen dependent Z99.81 [facility] [id number] [place] [address] 72578- 5325 May, Type 2 diabetes mellitus with other diabetic kidney complication E11.29 ; Essential hypertension I10 ; Chronic pain syndrome G89.4 ; BMI 40.0-44.9, adult Z68.41 ; Gastroesophageal reflux disease without esophagitis K21.9 ; prison current use of anticoagulant Z79.01 ; 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 ; Diabetic polyneuropathy associated with type 2 diabetes mellitus E11.42 ; Edema of both legs R60.0 and Supplemental oxygen dependent Z99.81 [facility] [address] [place] [address] 80535- 9762 May, [facility] [id number] [place] [address] 12777- 5377 May, Essential hypertension I10 and Gastroesophageal reflux disease without esophagitis K21.9 [facility] [id number] [place] [address] 58457- 8289 May, [facility] [id number] [place] [address] 83910- 5002 May, Type 2 diabetes mellitus with other diabetic kidney complication E11.29 and 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 [facility] [id number] [place] [address] 03419- 6571 Apr, Chronic pain syndrome G89.4 and Essential hypertension I10 [facility] [id number] [place] [address] 73885- 9397 Apr, Type 2 diabetes mellitus with other diabetic kidney complication E11.29 [facility] [id number] [place] [address] 11485- 9921 Apr, Type 2 diabetes mellitus with other diabetic kidney complication E11.29 [facility] [id number] [place] [address] 19952- 4933 Apr, Essential hypertension I10 [facility] [id number] [place] [address] 22764- 3860 Apr, Gastroesophageal reflux disease without esophagitis K21.9 [facility] [id number] [place] [address] 47090- 8183 Apr, Type 2 diabetes mellitus with other diabetic kidney complication E11.29 [facility] [id number] [place] [address] 87558- 2507 Apr, Type 2 diabetes mellitus with other diabetic kidney complication E11.29 and 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 [facility] [id number] [place] [address] 27119- 9672 Mar, Encounter for immunization Z23 and Preoperative examination Z01.818 [facility] [id number] [place] [address] 59283- 4876 Mar, [facility] [id number] [place] [address] 11743- 2383 Mar, Type 2 diabetes mellitus with other diabetic kidney complication E11.29 [facility] [address] 82455- 7648 08 Mar, 2017 Type 2 diabetes mellitus with other diabetic kidney complication E11.29 [facility] [id number] [place] [address] 92025- 2866 06 Mar, 2017 Gastroesophageal reflux disease without esophagitis K21.9 [facility] [id number] [place] [address] 01431- 6563 Mar, Essential hypertension I10 [facility] [address] 59605- 4013 Feb, prison current use of anticoagulant Z79.01 [facility] [id number] [place] [address] 47863- 6238 Feb, Type 2 diabetes mellitus with other diabetic kidney complication E11.29 [facility] [id number] [place] [address] 78497- 1972 Feb, Type 2 diabetes mellitus with other diabetic kidney complication E11.29 [facility] [id number] [place] [address] 01970- 7900 Feb, Type 2 diabetes mellitus with other diabetic kidney complication E11.29 [facility] [id number] [place] [address] 50283- 7904 Feb, Gastroesophageal reflux disease without esophagitis K21.9 [facility] [id number] [place] [address] 22242- 2488 Feb, Type 2 diabetes mellitus with other diabetic kidney complication E11.29 [facility] [id number] [place] [address] 98988- 2532 Feb, 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 [facility] [address], [place] [address]- 2060 Jan, Type 2 diabetes mellitus with other diabetic kidney complication E11.29 [facility] [address], [place] [address]- 2020 Jan, Type 2 diabetes mellitus with other diabetic kidney complication E11.29 [facility] [address], [place] [address]- 0026 Jan, Chronic pain syndrome G89.4 [facility] [address], [place] [address]- 6175 Jan, [facility] [id number] [address]- 3710 Jan, [facility] [address], [place] [address]- 4888 Jan, [facility] [address], [place] [address]- 8062 Jan, [facility] [address], [place] [address]- 0611 Jan, Primary insomnia F51.01 ; Type 2 diabetes mellitus with other diabetic kidney complication E11.29 ; Chronic pain syndrome G89.4 and Essential hypertension I10 [facility] [address], [place] [address]- 6013 Jan, Primary insomnia F51.01 [facility] [address], [place] [address]- 7084 Jan, Type 2 diabetes mellitus with other diabetic kidney complication E11.29 [facility] [address], [place] [address]- 2382 Jan, [facility] [address], [place] [address]- 7725 Jan, Chronic obstructive pulmonary disease, unspecified COPD type J44.9 [facility] [address], [place] [address]- 0607 Jan, Essential hypertension I10 ; Type 2 diabetes mellitus with other diabetic kidney complication E11.29 ; Chronic obstructive pulmonary disease, unspecified COPD type J44.9 ; Chronic kidney disease, stage 4 (severe) N18.4 ; Right carpal tunnel syndrome G56.01 ; 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 ; prison (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 and Diabetic polyneuropathy associated with type 2 diabetes mellitus E11.42 [facility] [id number] [place] [address] 73028- 5683 Jan, Gastroesophageal reflux disease without esophagitis K21.9 [facility] [id number] [place] [address] 81156- 3008 Dec, [facility] [id number] [place] [address] 35208- 7004 Dec, [facility] [id number] [place] [address] 29920- 9115 Dec, prison current use of anticoagulant Z79.01 ; Chronic pain syndrome G89.4 and Essential hypertension I10 [facility] [id number] [place] [address] 36766- 5847 Dec, [facility] [id number] [place] [address] 89266- 1925 Dec, Type 2 diabetes mellitus with other diabetic kidney complication E11.29 [facility] [address] [place] [address] 10854- 0933 Dec, [facility] [id number] [place] [address] 91472- 0991 Dec, Gastroesophageal reflux disease without esophagitis K21.9 [facility] [id number] [place] [address] 00685- 4236 November, Type 2 diabetes mellitus with other diabetic kidney complication E11.29 [facility] [id number] [place] [address] 65137- 6963 November, [facility] [address], [place] [address]- 0801 November, Type 2 diabetes mellitus with other diabetic kidney complication E11.29 [facility] [id number] [address]- 6986 November, [facility] [id number] [place] [address] 54998- 2057 November, Type 2 diabetes mellitus with other diabetic kidney complication E11.29 [facility] [id number] [place] [address] 98668- 1930 November, [facility] [id number] [place] [address] 56022- 1347 Oct, Essential hypertension I10 [facility] [id number] [place] [address] 66028- 7009 Oct, Psoriasis of scalp L40.9 [facility] [id number] [place] [address] 51874- 7157 Oct, Essential hypertension I10 and Chronic pain syndrome G89.4 [facility] [id number] [place] [address] 96951- 2347 Oct, [facility] [id number] [place] [address] 07918- 5347 Sep, Type 2 diabetes mellitus with other diabetic kidney complication E11.29 [facility] [address], [place] [address]- 4822 Sep, [facility] [address] [place] [address] 02943- 7200 Sep, Type 2 diabetes mellitus with other diabetic kidney complication E11.29 [facility] [address], [place] [address]- 9223 Sep, Type 2 diabetes mellitus with other diabetic kidney complication E11.29 [facility] [id number] [place] [address] 54709- 8418 Sep, Type 2 diabetes mellitus with other diabetic kidney complication E11.29 ; Chronic kidney disease, stage 4 (severe) N18.4 ; Chronic obstructive pulmonary disease, unspecified COPD type J44.9 ; Iron deficiency anemia due to chronic blood loss D50.0 ; 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 ; Gastroesophageal reflux disease without esophagitis K21.9 ; Essential hypertension I10 ; Primary insomnia F51.01 ; Depression, unspecified depression type F32.9 ; Chronic pain syndrome G89.4 ; Wrist pain, right M25.531 ; Paresthesia of right upper extremity R20.2 and Psoriasis of scalp L40.9 [facility] [address] 65286- 1824 Sep, [facility] [address] 59245- 5826 Aug, Essential hypertension I10 [facility] [address] 43197- 4991 Aug, History of DVT (deep vein thrombosis) Z86.718 [facility] [id number] [place] [address] 42729- 9884 Aug, [facility] [address] 56263- 9247 Jul, [facility] [id number] [place] [address] 95023- 3159 Jul, [facility] [address] 16562- 7488 Jul, prison current use of anticoagulant Z79.01 ; Chronic pain syndrome G89.4 and Chronic kidney disease, stage 4 (severe) N18.4 [facility] [address] 35891- 5897 Jul, [facility] [id number] [place] [address] 86581- 5497 Jul, [facility] [address] 49948- 3914 Jul, [facility] [id number], [place] [address]- 6354 Jul, [facility] [address], [place] [address]- 0911 Jul, [facility] [address], [place] [address]- 4248 Jul, Type 2 diabetes mellitus with other diabetic kidney complication E11.29 [facility] [address], [place] [address]- 9195 16 Jul, 2016 History of DVT (deep vein thrombosis) Z86.718 [facility] [address] [place] [address] 98438- 4805 23 Jun, [address], [place] [address]- 4966 19 Jun, 2016 History of DVT (deep vein thrombosis) Z86.718 [facility] [address], [place] [address]- 7631 15 Jun, 2016 Post traumatic stress disorder (PTSD) F43.10 [address], [place] [address]- 6312 07 Jun, 2016 Type 2 diabetes mellitus with other diabetic kidney complication E11.29 ; Diabetic polyneuropathy associated with type 2 diabetes mellitus E11.42 ; Iron deficiency anemia due to chronic blood loss D50.0 ; Chronic obstructive pulmonary disease, unspecified COPD type J44.9 ; prison current use of anticoagulant Z79.01 ; History [...] pain M79.641 and Right wrist pain M25.531 [facility] [address], [place] [address]- 1906 28 May, 2016 [facility] [id number] [place] [address] 42847 2546 May, [facility] [id number] [place] [address] 89681 2546 May, [facility] [id number] [place] [address] 09969- 8947 15 May, 2016 [facility] [id number] [place] [address] 82371- 9719 11 May, 2016 Anemia in other chronic diseases classified elsewhere D63.8 [facility] [id number] [place] [address] 06033- 4917 May, [facility] [id number] [place] [address] 00249- 2763 10 Apr, 2016 [facility] [address] [place] [address] 62487- 8307 27 Mar, 2016 Dermatofibroma D23.9 [facility] [id number] [place] [address] 49087- 9153 20 Mar, 2016 [facility] [address] [place] [address] 75405- 2168 14 Mar, 2016 Chronic pain syndrome G89.4 [facility] [address] [place] [address] 11976- 2544 09 Mar, 2016 [facility] [id number], [place] [address] 2546 07 Mar, 2016 [facility] [id number] [place] [address] 09783- 2546 06 Mar, 2016 [facility] [address], [place] [address]- 254 30 Feb, 2016 [facility] [address] [address]- 7618 Feb, [facility] [id number] [place] [address] 14746- 9036 Feb, [facility] [address] [place] [address] 11057- 6441 Feb, [facility] [id number] [place] [address] 78900- 6675 Feb, [facility] [id number] [place] [address] 87546- 3240 Feb, [facility] [id number] [place] [address] 96002- 7439 Feb, Type 2 diabetes mellitus with other diabetic kidney complication E11.29 ; Diabetic polyneuropathy associated with type 2 diabetes mellitus E11.42 ; Iron deficiency anemia due to chronic blood loss D50.0 ; Chronic obstructive pulmonary disease, unspecified COPD type J44.9 ; prison current use of anticoagulant Z79.01 ; History of DVT (deep vein thrombosis) Z86.718 ; Chronic pain syndrome G89.4 ; Oxygen desaturation during sleep G47.34 ; Sleep apnea in adult G47.33 ; Gastroesophageal reflux disease without esophagitis K21.9 ; Essential hypertension I10 ; Primary insomnia F51.01 ; Depression, unspecified depression type F32.9 and Renal failure, chronic, stage 4 (severe) N18.4 [facility] [id number] [place] [address] 10812- 5150 Feb, Skin tags, multiple acquired L91.8 [facility] [address] [place] [address] 78326- 6006 Jan, [facility] [id number] [place] [address] [id number] Jan, Dental examination Z01.20 [facility] [address] [place] [address] 61575- 9530 Jan, [facility] [address] [id number] [place] [address] 22698- 4547 Jan, Type 2 diabetes mellitus with other diabetic kidney complication E11.29 ; Diabetic polyneuropathy associated with type 2 diabetes mellitus E11.42 ; Iron deficiency anemia due to chronic blood loss D50.0 ; Chronic obstructive pulmonary disease, unspecified COPD type J44.9 ; prison current use of anticoagulant Z79.01 ; History of DVT (deep vein thrombosis) Z86.718 ; Chronic pain syndrome G89.4 ; Oxygen desaturation during sleep G47.34 ; Sleep apnea in adult G47.33 ; Gastroesophageal reflux disease without esophagitis K21.9 ; Essential hypertension I10 ; Primary insomnia F51.01 ; Depression, unspecified depression type F32.9 ; Skin lesion L98.9 and Renal failure, chronic, stage 4 (severe) N18.4 [facility] [address] [place] [id number] [place] [address] 31793- 4650 Dec, Diabetes type 2, uncontrolled E11.65 [place] [id number] [place] [address] 96470- 3577 Dec, [address] [address]- [address]38 Dec, Type 2 diabetes mellitus with other diabetic kidney complication E11.29 ; Diabetic polyneuropathy associated with type 2 diabetes mellitus E11.42 ; Iron deficiency anemia due to chronic blood loss D50.0 ; Chronic obstructive pulmonary disease, unspecified COPD type J44.9 ; prison current use of anticoagulant Z79.01 ; History of DVT (deep vein thrombosis) Z86.718 ; Chronic pain syndrome G89.4 ; Oxygen desaturation during sleep G47.34 ; Sleep apnea in adult G47.33 ; Gastroesophageal reflux disease without esophagitis K21.9 ; Essential hypertension I10 ; Primary insomnia F51.01 and Depression, unspecified depression type F32.9 [facility] [id number] [place] [address] [id number] Dec, Dental caries K02.9 [facility] [address] [id number] [id number] Dec, [facility] [id number] [place] [address] [id number] Dec, Dental examination Z01.20 [facility] [address] [id number] [id number] November, Dental examination Z01.20 and Dental caries K02.9 [facility] [address] [id number], [place] [id number] Oct, [facility] [address] [id number] [place] [id number] Oct, [facility] [address] [id number] [place] [id number] Sep, [facility] [address] [id number] [place] [id number] Sep, [facility] [address] [id number] [place] [id number] Sep, [facility] [address] [id number] [place] [id number] Sep, Other chronic pain 338.29 [facility] [id number] [place] [address] [id number] Aug, Diabetes type 2, uncontrolled E11.65 and Morbid obesity due to excess calories E66.01 [facility] [id number] [place] [address] [id number] Aug, Hair loss L65.9 [facility] [address] [id number], [place] [id number] Aug, [facility] [address] [id number] [place] [address] [id number] Jul, [facility] [address] [id number] [place] [address] [id number] Jul, [facility] [id number] [place] [address] [id number] Jun, [facility] [address] [id number] [place] [address] [id number] Jun, Hair loss L65.9 and Disorder of the skin and subcutaneous tissue, unspecified L98.9 [facility] [address] [id number] [place] [address] [id number] May, Type 2 diabetes mellitus with other diabetic kidney complication E11.29 ; Type 2 diabetes mellitus with hyperglycemia E11.65 ; Morbid obesity due to excess calories E66.01 and Essential hypertension I10 [place] [id number] [place] [address] [id number] May, Diabetes type 2, uncontrolled E11.65 ; Encounter for immunization Z23 and Morbid obesity due to excess calories E66.01 [place] [id number] [place] [address] [id number] May, [facility] [address] [address]- [address] Apr, [place] [id number] [place] [address] [id number] Apr, Hyperglycemia R73.[address] [id number] Apr, [place] [id number] [place] [address] [id number] Apr, Depression F32.9 ; Encounter for immunization Z23 ; Hyperglycemia R73.9 and Anemia in other chronic diseases classified elsewhere D63.8 [facility] [id number], [place] [id number] Mar, [place] [id number] [place] [address] [phone] Feb, Positive occult stool blood test 792.1 [place] [id number] [place] [address] [id number] Feb, Depression 311 ; Other chronic pain 338.29 and Diabetes with renal manifestations, type II or unspecified type, not stated as uncontrolled 250.40 [facility] [address]00565100[place] [address]00638[address]- 96[address] Feb, Occult blood in stools 792.1 [place] [id number] [place] [address] [id number] Feb, Anemia 285.9 ; Occult blood positive stool 792.1 ; Unspecified essential hypertension 401.9 and Other chronic pain 338.29 [address] [place] [address] [id number] Feb, [address] [id number], [place] [id number] Feb, Anemia 285.9 [facility] [place] [id number], [place] [id number] Feb, [facility] [id number] [place] [address] [id number] Feb, [facility] [id number] [place] [address] [id number] Feb, Diabetes with renal manifestations, type II or unspecified type, not stated as uncontrolled 250.40 ; Other chronic pain 338.29 ; Unspecified essential hypertension 401.9 ; Anemia 285.9 and Depression 311 [facility] [place] [id number] [place] [address] [id number] Jan, [facility] [address] [place] [id number] [place] [address] [id number] Jan, Anemia 285.9 and Follow up V67.9 [facility] [id number] [place] [address] [id number] Jan, [facility] [id number], [place] [id number] Jan, [facility] [id number] [place] [address] [id number] Jan, [facility] [id number] [place] [address] [id number] Dec, [facility] [address]00565100[place], [place] [address] 2546 Oct, [facility] [id number] [place] [address] 49848- 2546 Oct, [facility] [id number] [place] [address] 46315- 2546 Sep, [facility] [id number] [place] [address] [id number] Sep, [facility] [id number] [place] [address] 89223- 2546 Sep, [facility] [place] [id number] [place] [address] [id number] Aug, [facility] [place] [facility] [address] [facility] [id number], [place] [address]- 3694 Aug, [facility] [place] [facility] [address] [facility] [id number], [place] [address]- 0706 Aug, [facility] [place] [address] [facility] [id number], [place] [id number] Aug, [facility] [place] [facility] [address] [facility] [id number], [place] [address]- 6987 Aug, [facility] [place] [facility] [address] [facility] [id number] [place] [address]- 7687 Aug, [facility] [place] [address] [facility] [id number], [place] [id number] Aug, [facility] [place] [facility] [address] [address] [id number], [place] [address]- 5031 Aug, [facility] [address] [facility] [id number], [place] [id number] Jul, [facility] [place] [facility] [address] [facility] [id number], [place] [address]- 0773 Jul, [facility] [place] [facility] [address] [id number], [place] [address] 1940 Jul, [facility] [address] [facility] [id number], [place] [id number] Jul, [facility] [place] [facility] [address] [facility] [id number], [place] [address]- 6316 Jul, [facility] [address] [facility] [id number], [place] [id number] Jul, [facility] [place] [facility] [address] [facility] [id number], [place] [address]- 6626 Jul, [facility] [address] [facility] [id number], [place] [id number] Jun, [facility] [address] [facility] [id number], [place] [id number] Jun, [facility] [place] [facility] [address] [facility] [id number][place] [address]- 8878 Jun, [facility] [place] [facility] [address] [facility] [id number] [place] [address]- 2422 Jun, [facility] [address] [facility] [id number] [place] [id number] Jun, [facility] [place] [facility] [address] [facility] [id number], [place] [address]- 1866 Jun, [facility] [address] [facility] [id number], [place] [id number] May, [facility] [place] [facility] [address] [facility] [id number] [place] [address]- 5952 May, [facility] [place] [facility] [address] [facility] [id number] [place] [address]- 5930 May, [facility] [address] [facility] [id number], [place] [id number] Apr, [facility] [place] [facility] [address] [facility] [id number], [place] [address]- 6153 Apr, [facility] [address] [facility] [id number] [place] [id number] Apr, [facility] [address] [facility] [id number], [place] [id number] Apr, [facility] [place] [facility] [address] [facility] [id number], [place] [address]- 7698 Apr, [facility] [place] [facility] [address] [facility] [id number], [place] [address]- 5486 Apr, [facility] [place] [address] [facility] [id number], [place] [id number] Mar, [facility] [place] [facility] [address] [facility] [id number], [place] [address]- 5677 Mar, [facility] [address] [facility] [id number], [place] [id number] Mar, [facility] [place] [facility] [address] [facility] [id number], [place] [address]- 1243 Mar, [facility] [address] [id number] [place] [id number] Mar, [facility] [place] [facility] [address] [id number] [place] [address]- 7955 Mar, [facility] [address] [id number] [place] [id number] Mar, [facility] [place] [facility] [address] [id number], [place] [address]- 0304 Mar, [facility] [address] [id number] [place] [id number] Mar, [facility] [place] [facility] [address] [id number] [place] [address]- 4054 Mar, [facility] [address] [id number] [place] [id number] Feb, [facility] [place] [facility] [address] [id number], [place] 344603- 0687 Feb, [facility] [place] [address] [facility] [id number] [place] [id number] Jan, [facility] [place] [facility] [address] [facility] [id number], [place] [address]- 6952 Jan, [facility] [address] [facility] [id number], [place] [id number] Jan, [facility] [place] [facility] [address] [id number], [place] 541062- 1052 Jan, [facility] [address] [id number], [place] [id number] Jan, [facility] [place] [facility] [address] [id number], [place] [address]- 5174 Jan, [facility] [place] [facility] [address] [facility] [id number] [place]- 3888 Dec, [facility] [place] [facility] [address] [id number] [place]- 9382 Dec, [facility] [address] [facility] [id number], [place] [id number] November, [facility] [place] [facility] [address] [id number] [place] [address]- 8046 November, [facility] [address] [facility] [id number] [place] [id number] November, [facility] [place] [facility] [address] [id number] [place] [address]- 0296 November, [facility] [address] [facility] [id number] [place] [id number] Oct, [facility] [place] [facility] [address] [id number] [place] [address]- 6582 Oct, [facility] [place] [facility] [address] [id number] [place] [address]- 9270 Oct, [facility] [place] [facility] [address] [facility] [id number] [place] [address]- 6419 Oct, [facility] [place] [facility] [address] [facility] [id number] [place] [address]- 2538 Oct, [facility] [place] [facility] [address] [id number] [place] [address]- 0096 Oct, [facility] [place] [address] [id number] [place] [id number] Sep, [facility] [place] [address] [facility] [id number] [place] [id number] Sep, [facility] [place] [facility] [address] [facility] [id number] [place] [address]- 9691 Sep, [facility] [place] [facility] [address] [id number] [place] [address]- 0318 Sep, [facility] [address] [facility] [id number] [place] [id number] Sep, [facility] [place] [facility] [address] [facility] [id number] [place] [address]- 2253 Sep, [facility] [place] [facility] [address] [facility] [id number] [place] [address]- 9730 Aug, [facility] [place] [facility] [address] [facility] [id number], [place] [address]- 9034 Aug, [facility] [place] [address] [id number] [place] [id number] Aug, [facility] [address] [facility] [id number] [place] [id number] Aug, [facility] [place] [facility] [address] [facility] [id number], [place] [address]- 7376 Aug, [facility] [address] [facility] [id number] [place] [id number] Aug, [facility] [place] [facility] [address] [facility] [id number], [place] [address]- 7294 Aug, [facility] [place] [address] [facility] [id number] [place] [id number] Aug, [facility] [place] [facility] [address]00565100[place], [place] [address]- 5337 Aug, [facility] [place] [address] [facility] [id number], [place] [id number] Aug, [facility] [place] [facility] [address]00565100[place], [place] [address]- 6032 Aug, [facility] [place] [address] [facility] [id number], [place] [id number] Aug, [facility] [place] [facility] [address]00565100[place], [place] [address]- 0443 Aug, [facility] [place] [facility] [address] [facility] [id number], [place] [address]- 4531 Jul, [facility] [place] [address] [facility] [id number], [place] [id number] Jun, [facility] [place] [facility] [address] [facility] [id number], [place] [address]- 2567 Jun, [facility] [place] [facility] [address] [id number], [place] [address]- 3945 Jun, [facility] [place] [facility] [address]00565100[place], [place] [address]- 2866 Jun, [facility] [place] [address] [facility] [id number] [place] [id number] Jun, [facility] [place] [facility] [address] [id number] [place] [address]- 4556 Jun, [facility] [place] [facility] [address] [facility] [id number] [place] [address]- 2546 Jun, [facility] [place] [address] [facility] [id number], [place] [id number] Jun, [facility] [place] [facility] [address] [id number] [place] [address]- 9236 Jun, [facility] [place] [facility] [address] [facility] [id number], [place] [address]- 1606 May, [facility] [place] [address] [id number], [place] 729464010 May, [facility] [place] [facility] [address] [id number], [place] [address]- 4226 May, [facility] [place] [facility] [address] [id number], [place] [address]- 2018 May, [facility] [place] [facility] [address] [id number], [place] [address]- 9939 May, [facility] [place] [facility] [address] [facility] [id number], [place] [address]- 2447 May, [facility] [address] [facility] [id number], [place] [id number] May, [facility] [place] [facility] [address] [id number], [place] [address]- 6546 May, [facility] [place] [address] [facility] [id number], [place] [id number] May, [facility] [place] [facility] [address] [facility] [id number], [place] [address]- 2546 May, [facility] [place] [address] [facility] [id number], [place] [id number] Apr, [facility] [place] [facility] [address] [id number], [place] [address]- 5426 Apr, [facility] [address] [facility] [id number], [place] 577488- 0866 Apr, [facility] [address] [facility] [id number], [place] [id number] Apr, [facility] [place] [facility] [address] [id number], [place] [address]- 4483 Apr, [facility] [place] [facility] [address] [id number], [place] [address]- 3248 Apr, [facility] [address] [facility] [id number], [place] 227948982 Apr, [facility] [place] [facility] [address] [facility] [id number], [place] [address]- 8763 Apr, [facility] [place] [facility] [address] [facility] [id number], [place] [address]- 8235 Apr, [facility] [place] [facility] [address] [facility] [id number], [place] [address]- 0103 Apr, [facility] [address] [facility] [id number], [place] [id number] Apr, [facility] [place] [facility] [address] [facility] [id number], [place] [address]- 0161 Apr, [facility] [address] [facility] [id number], [place] 066258192 Apr, [facility] [place] [facility] [address] [facility] [id number], [place] [address]- 3063 Apr, [facility] [address] [facility] [id number], [place] [id number] Apr, [facility] [place] [facility] [address] [facility] [id number], [place] [address]- 8259 Apr, [facility] [place] [facility] [address] [facility] [id number], [place] [address]- 8738 Apr, [facility] [place] [facility] [address] [facility] [id number], [place] [address]- 9266 Apr, [facility] [place] [address] [id number] [place] [id number] Apr, [facility] [address] [facility] [id number], [place] [address]- 8535 Mar, [facility] [address] [facility] [id number], [place] [address]- 2857 Mar, [facility] [place] [address] [id number] [place] [id number] Mar, [facility] [place] [address] [id number] [place] 065911262 Mar, [facility] [place] [address] [id number] [place] [id number] Mar, [facility] [place] [address] [id number] [place] [id number] Feb, [facility] [place] [address] [id number] [place] [id number] Feb, [facility] [place] [address] [id number] [place] [id number] Feb, [facility] [address] [facility] [id number] [address]- 5722 Feb, [facility] [place] [address] [id number] [place] [id number] Feb, [facility] [place] [address] [id number] [place] [id number] Feb, [facility] [place] [address] [id number] [place] [id number] Feb, [facility] [address] [id number] [place] 580612957 Feb, [facility] [address] [id number] [place] [id number] Feb, [facility] [address] [id number] [place] [id number] Jan, [facility] [address] [id number] [place] [id number] Jan, [facility] [place] [address] [id number] [place] [id number] Jan, [facility] [place] [address] [id number] [place] [id number] Jan, [facility] [place] [address] [id number] [place] [id number] Jan, [facility] [address] [facility] [id number] [place] [id number] Jan, [facility] [place] [address] [id number] [place] [id number] Jan, [facility] [place] [address] [id number] [place] [id number] Jan, [facility] [place] [address] [id number] [place] [id number] Dec, [facility] [place] [address] [id number] [id number] November, [facility] [place] [address] [id number] [place] [id number] November, [facility] [place] [address] [id number] [place] [id number] November, [facility] [place] [address] [id number] [place] [id number] November, [facility] [place] [address] [id number] [place] [id number] November, [facility] [place] [address] [id number] [place] [id number] November, [facility] [place] [address] [id number] [place] [id number] Jul, [facility] [place] [address] [id number] [place] [id number] Jul, [facility] [place] [address] [id number] [place] [id number] Jul, [facility] [place] [address] [id number] [place] [id number] Jun, [facility] [address] [id number] [place] [id number] Jun, [facility] [place] [address] [id number][place] [id number] May, [facility] [place] [facility] [address] [id number], [place] [address] May, [facility] [place] [address] [id number][place] [id number] May, [facility] [address] [facility] [id number], [place] [address] May, [facility] [place] [address] [id number][place] [id number] May, [facility] [place] [facility] [address] [facility] [id number], [place] [address] May, [facility] [place] [address] [facility] [id number][place] [id number] Apr, [facility] [place] [facility] [address] [facility] [id number], [place] [address] Apr, [facility] [place] [facility] [address] [facility] [id number], [place] [address] Apr, [facility] [place] [address] [id number][place] [id number] Apr, [facility] [address] [facility] [id number][place] [id number] Apr, [facility] [place] [facility] [address] [facility] [id number], [place] [address] Apr, [facility] [place] [facility] [address] [facility] [id number], [place] [address] Apr, [facility] [place] [address] [id number], [place] [id number] Apr, [facility] [place] [facility] [address] [facility] [id number], [place] [address] Apr, [facility] [place] [address] [id number], [place] [id number] Apr, [facility] [place] [address] [id number], [place] [id number] Apr, [facility] [address] [id number], [place] [id number] Mar, [facility] [place] [address] [id number] [place] [id number] Feb, [facility] [place] [address] [id number] [place] [id number] Jan, [facility] [place] [address] [id number] [place] [id number] Dec, [facility] [place] [address] [id number] [place] [id number] Dec, [facility] [place] [address] [id number] [place] [id number] Dec, [facility] [place] [address] [id number] [place] [id number] Dec, [facility] [place] [address] [id number] [place] [id number] Dec, [facility] [place] [address] [id number] [place] [id number] November, [facility] [place] [address] [id number] [place] [id number] November, [facility] [place] [address] [id number] [place] [id number] November, [facility] [id number] [address] November, [facility] [place] [address] [id number] [place] [id number] November, [facility] [place] [address] [id number] [place] [id number] November, [facility] [place] [address] [id number] [place] [id number] Oct, [facility] [place] [address] [id number] [place] [id number] Oct, [facility] [place] [address] [id number] [place] [id number] Oct, [facility] [place] [address] [id number] [place] [id number] Oct, [facility] [place] [address] [id number] [place] [id number] Oct, [facility] [place] [address] [id number] [place] [id number] Oct, [facility] [place] [address] [id number] [place] [id number] Sep, [facility] [address] [id number] [place] [id number] Aug, [facility] [address] [id number] [place] [id number] Aug, [facility] [address] [id number] [place] [id number] Jul, [facility] [place] [facility] [address] [facility] [id number] [address] Jun, [facility] [place] [facility] [address] [id number], [place] [address] Jun, [facility] [place] [facility] [id number] [address] Jun, [facility] [place] [facility] [id number], [place] [address] Jun, [facility] [place] [facility] [id number], [place] [address] May, [facility] [place] [facility] [id number], [place] [address] May, [facility] [place] [facility] [id number], [place] [address] Apr, [facility] [place] [facility] [address] [id number], [place] [address] Apr, [facility] [place] [facility] [address] [facility] [id number], [place] [address] Apr, [facility] [place] [facility] [address] [id number], [place] [address] Feb, [facility] [place] [facility] [address] [id number], [place] [address] Aug, [facility] [place] [facility] [id number] [place] [address] 18 Jul, 2010 [facility] [address] [id number] [place] [address] 30 Jun, 2010 [facility] [address] [id number] [place] [address] May, [facility] [address] [id number] [place] [address] May, [facility] [address] [id number] [place] [address] May, [facility] [id number] [place] [address], [place] [address] May, [facility] [address] [facility] [address] [id number] [place] [address] May, [facility] [address] [id number] [place] [address] Aug, [facility] [address] [id number] [place] [address] Jun, [facility] [address] [id number] [place] [address] Jun, [facility] [address] [id number] [place] [address] Jun, [facility] [address] [id number] [place] [address] 24 May, 2009 [facility] [address] [id number], [place] [address] Apr, [facility] [address] [id number] [place] [address] 27 Apr, 2009 [facility] [place] [facility] [address] [id number] [place] [address] 15 Apr, 2009 [facility] [address] [id number] [place] [address] Jan, [facility] [address] [id number] [place] [address] Oct, [facility] [address] [id number], [place] [address] May, [facility] [address] [id number], [place] [address] May, IMMUNIZATIONS No Known Immunizations SOCIAL HISTORY Never Assessed REASON FOR VISIT Refill request PLAN OF CARE VITAL SIGNS MEDICATIONS Medication Instructions Dosage Frequency Start Date End Date Duration Status Savella 100 mg Orally Twice a day 1 tablet 12h 28 Active Trazodone HCl 150 MG Orally Once [...] Dialysis Ruthy Reveles 2012 -Dr. Simon now [facility] Medical History Colonoscopy (polyps 2 ) [...]
--- OUTSIDE RECORDS SUMMARY | 2018-02-13 13:50 | XMS REPORT ---
Author Author RIYA PHILLIPS Organization [facility] Address [address] [place] [address] Care Team Providers Care Media Reconciliation Specialist Name Role Phone ALAN RIYA Unavailable PROBLEMS Type Condition ICD9-CM Code JIJ99-ZF Code Onset Dates Condition Status SNOMED Code Problem Chronic kidney disease, stage 4 (severe) N18.4 Active 726282331 Problem Psoriasis of scalp L40.9 Active 907688787 Problem Type 2 diabetes mellitus with hyperglycemia E11.65 Active 478845754766792 Problem Fibromyalgia M79.7 Active 163878069 Problem History of DVT (deep vein thrombosis) Z86.718 Active 985535491 Problem Carpal tunnel syndrome, bilateral G56.03 Active [id number] Problem Type 2 diabetes mellitus with other diabetic kidney complication E11.29 Active 421919725 Problem Anemia in other chronic diseases classified elsewhere D63.8 Active 751353830 Problem manager long term care 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 Active 567850208 Problem Paresthesia of right upper extremity R20.2 Active 77093360 Problem Bilateral lower extremity edema R60.0 Active 433633539 Problem Supplemental oxygen dependent Z99.81 Active 782422785314 Problem Sleep apnea in adult G47.33 Active 38064313 Problem Chronic pain syndrome G89.4 Active 567509426 Problem manager long term care current use of anticoagulant Z79.01 Active 774711231 Problem Essential hypertension I10 Active 13154388 Problem Gastroesophageal reflux disease without esophagitis K21.9 Active 096918763 Problem Chronic obstructive pulmonary disease, unspecified COPD type J44.9 Active 24901288 Problem 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 Active 902590468893939 Problem Primary insomnia F51.01 Active 3065916 Problem Oxygen desaturation during sleep G47.34 Active 350759063 Problem Right carpal tunnel syndrome G56.01 Active 917772459374314 Problem Diabetic polyneuropathy associated with type 2 diabetes mellitus E11.42 Active 25928276 Problem Depression, unspecified depression type F32.9 Active 94746852 ALLERGIES Substance Reaction Event Type Date Status Sulfamethoxazole-Trimethoprim hives Drug Allergy Oct, Active Penicillin V Potassium anaphylaxis Drug Allergy Oct, Active plastic tape rash Non Drug Allergy Oct, Active ENCOUNTERS Encounter Location Date Diagnosis [place] [id number] [address] Jan, [place] [id number] [place] [address] 24671- 5781 Jan, [place] [id number] [place] [address] 36413- 0670 Jan, Essential hypertension I10 [place] [id number] [place] [address] 62887- 8969 Jan, Chronic obstructive pulmonary disease, unspecified COPD type J44.9 [place] [id number] [place] [address] 03105- 5862 Jan, [facility] [id number] [place] [address] 37028- 2208 Jan, [place] [id number] [place] [address] 52770- 7446 Jan, Type 2 diabetes mellitus with other diabetic kidney complication E11.29 ; Anemia in other chronic diseases classified elsewhere D63.8 ; Chronic obstructive pulmonary disease, unspecified COPD type J44.9 and BMI 60.0-69.9, adult Z68.44 [place] [address], [place] [address] 4[address] Jan, [place] [id number] [address] 0203 Jan, [address] [place] [address] [id number] Jan, [address] [id number] Dec, [place] [id number] [place] [id number] Dec, [facility] [address] [id number] [id number] Dec, Essential hypertension I10 ; Type 2 diabetes mellitus with other diabetic kidney complication E11.29 ; Depression, unspecified depression type F32.9 ; Supplemental oxygen dependent Z99.81 ; Chronic pain syndrome G89.4 ; Fibromyalgia M79.7 ; Carpal tunnel syndrome, bilateral G56.03 and Chronic kidney disease, stage 4 (severe) N18.4 [facility] [id number] [place] [address] 93760- 0069 Dec, Essential hypertension I10 [facility] [id number] [place] [address] 01577- 4619 November, Type 2 diabetes mellitus with other diabetic kidney complication E11.29 [facility] [id number] [place] [address] 21659- 6203 November, Chronic pain syndrome G89.4 [facility] [id number] [place] [address] 64831- 0850 November, [facility] [id number] [place] [address] 91274- 1457 November, [facility] [id number] [place] [address] 05649- 2313 November, [facility] [id number] [address] 3302 Oct, Type 2 diabetes mellitus with other diabetic kidney complication E11.29 [facility] [id number] [address] 0943 Oct, Primary insomnia F51.01 [facility] [address] [id number] Oct, Bilateral lower extremity edema R60.0 [facility] [id number] [place] [address] 07213- 9532 Oct, [facility] [id number] [place] [address] 45370- 7161 Sep, Type 2 diabetes mellitus with other diabetic kidney complication E11.29 and Chronic obstructive pulmonary disease, unspecified COPD type J44.9 [place] [id number] [place] [address] 43929- 0265 15 Aug, 2017 Type 2 diabetes mellitus with other diabetic kidney complication E11.29 [place] [id number] [place] [address] 47548- 5488 12 Aug, 2017 Gastroesophageal reflux disease without esophagitis K21.9 ; manager long term care current use of anticoagulant Z79.01 ; Chronic pain syndrome G89.4 ; Essential hypertension I10 and Type 2 diabetes mellitus with other diabetic kidney complication E11.29 [place] [id number] [place] [address] 97959- 6482 08 Aug, 2017 Chronic pain syndrome G89.4 [place] [id number] [place] [address] 76348- 7285 Aug, Type 2 diabetes mellitus with other diabetic kidney complication E11.29 [place] [id number] [place] [address] 60678- 0366 Jul, Diabetic polyneuropathy associated with type 2 diabetes mellitus E11.42 [place] [id number] [place] [address] 12894- 1400 Jul, Primary insomnia F51.01 [place] [id number] [place] [address] 62206- 1847 Jul, [place] [id number] [place] [address] 32062- 1834 Jul, Type 2 diabetes mellitus with other diabetic kidney complication E11.29 and Chronic obstructive pulmonary disease, unspecified COPD type J44.9 [place] [id number] [place] [address] 09632- 5530 Jul, Type 2 diabetes mellitus with other diabetic kidney complication E11.29 [place] [id number] [place] [address] 66414- 3316 Jun, Type 2 diabetes mellitus with other diabetic kidney complication E11.29 [place] [address], [place] [address] 0880 Jun, [place] [id number] [place] [address] 10584- 7709 Jun, Chronic obstructive pulmonary disease, unspecified COPD type J44.9 [place] [id number] [place] [address] 28554- 7708 May, Type 2 diabetes mellitus with other diabetic kidney complication E11.29 [place] [address] [place] [address] 78358- 5242 May, prison current use of anticoagulant Z79.01 and Essential hypertension I10 [place] [id number] [place] [address] 45825- 8550 May, Anemia in other chronic diseases classified elsewhere D63.8 ; Chronic obstructive pulmonary disease, unspecified COPD type J44.9 ; Oxygen desaturation during sleep G47.34 ; Sleep apnea in adult G47.33 and Supplemental oxygen dependent Z99.81 [address] [place] [address] 13915- 4411 May, Type 2 diabetes mellitus with other diabetic kidney complication E11.29 ; Essential hypertension I10 ; Chronic pain syndrome G89.4 ; BMI 40.0-44.9, adult Z68.41 ; Gastroesophageal reflux disease without esophagitis K21.9 ; prison current use of anticoagulant Z79.01 ; manager long term care 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 ; Diabetic polyneuropathy associated with type 2 diabetes mellitus E11.42 ; Edema of both legs R60.0 and Supplemental oxygen dependent Z99.81 [place] [address], [place] [address]- 5108 May, [place] [id number] [place] [address] 84020- 6747 May, Essential hypertension I10 and Gastroesophageal reflux disease without esophagitis K21.9 [place] [id number] [place] [address] 15789- 9728 May, [place] [id number] [place] [address] 30730- 5691 May, Type 2 diabetes mellitus with other diabetic kidney complication E11.29 and prison current use of anticoagulant Z79.01 [place] [id number] [place] [address] 99866- 8138 Apr, Chronic pain syndrome G89.4 and Essential hypertension I10 [place] [address] 41479- 1546 Apr, Type 2 diabetes mellitus with other diabetic kidney complication E11.29 [place] [address] 920375- 3002 Apr, Type 2 diabetes mellitus with other diabetic kidney complication E11.29 [place] [address] 84777- 4610 Apr, Essential hypertension I10 [place] [address] 91761- 8822 Apr, Gastroesophageal reflux disease without esophagitis K21.9 [place] [address] 04050- 7390 Apr, Type 2 diabetes mellitus with other diabetic kidney complication E11.29 [place] [id number] [place] [address] 76456- 1905 Apr, Type 2 diabetes mellitus with other diabetic kidney complication E11.29 and manager long term care current use of anticoagulant Z79.01 [place] [id number] [place] [address] 05052- 3005 Mar, Encounter for immunization Z23 and Preoperative examination Z01.818 [place] [address] 61507- 4211 Mar, [place] [address] [id number] [place] [address] 21002- 2561 Mar, Type 2 diabetes mellitus with other diabetic kidney complication E11.29 [place] [address] [place] [address]- 2390 08 Mar, 2017 Type 2 diabetes mellitus with other diabetic kidney complication E11.29 [facility] [id number] [place] [address] 46236- 0214 06 Mar, 2017 Gastroesophageal reflux disease without esophagitis K21.9 [facility] [id number] [place] [address] 08221- 9175 Mar, Essential hypertension I10 [facility] [id number] [place] [address] 03744- 7271 Feb, prison current use of anticoagulant Z79.01 [facility] [id number] [place] [address] 36123- 8068 Feb, Type 2 diabetes mellitus with other diabetic kidney complication E11.29 [facility] [id number] [place] [address] 37904- 2994 Feb, Type 2 diabetes mellitus with other diabetic kidney complication E11.29 [facility] [id number] [place] [address] 44455- 9067 Feb, Type 2 diabetes mellitus with other diabetic kidney complication E11.29 [facility] [id number] [place] [address] 29538- 8983 Feb, Gastroesophageal reflux disease without esophagitis K21.9 [facility] [address], [place] [address]- 1558 Feb, Type 2 diabetes mellitus with other diabetic kidney complication E11.29 [facility] [address], [place] [address]- 7061 Feb, manager long term care current use of anticoagulant Z79.01 [facility] [id number] [place] [address] 56750- 8317 Jan, Type 2 diabetes mellitus with other diabetic kidney complication E11.29 [facility] [address] [place] [address] 97319- 6750 Jan, Type 2 diabetes mellitus with other diabetic kidney complication E11.29 [facility] [address], [place] [address]- 6048 Jan, Chronic pain syndrome G89.4 [facility] [address], [place] [address]- 0886 Jan, [facility] [address], [place] [address]- 0581 Jan, [facility] [address], [place] [address]- 5217 Jan, [facility] [id number], [place] [address]- 3493 Jan, [facility] [address], [place] [address]- 3094 Jan, Primary insomnia F51.01 ; Type 2 diabetes mellitus with other diabetic kidney complication E11.29 ; Chronic pain syndrome G89.4 and Essential hypertension I10 [facility] [address], [place] [address]- 8726 Jan, Primary insomnia F51.01 [facility] [address], [place] [address]- 8586 Jan, 2017 Type 2 diabetes mellitus with other diabetic kidney complication E11.29 [facility] [address], [place] [address]- 9902 Jan, [facility] [id number], [place] [address]- 4417 Jan, Chronic obstructive pulmonary disease, unspecified COPD type J44.9 [facility] [id number], [place] [address]- 9370 Jan, Essential hypertension I10 ; Type 2 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.29 ; Chronic obstructive pulmonary disease, unspecified COPD type J44.9 ; Chronic kidney disease, stage 4 (severe) N18.4 ; Right carpal tunnel syndrome G56.01 ; 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 ; prison (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 and Diabetic polyneuropathy associated with type 2 diabetes mellitus E11.42 [facility] [address], [place] [address]- 6789 Jan, Gastroesophageal reflux disease without esophagitis K21.9 [facility] [id number] [address]- 3766 Dec, [facility] [id number] [place] [address] 63266- 3991 Dec, [facility] [id number] [place] [address] 63237- 8925 Dec, manager long term care current use of anticoagulant Z79.01 ; Chronic pain syndrome G89.4 and Essential hypertension I10 [facility] [id number] [place] [address] 75585- 9422 Dec, [facility] [id number] [place] [address] 73382- 5438 Dec, Type 2 diabetes mellitus with other diabetic kidney complication E11.29 [facility] [id number] [place] [address] 17541- 5615 Dec, [facility] [id number] [place] [address] 76871- 7885 Dec, Gastroesophageal reflux disease without esophagitis K21.9 [facility] [address], [place] [address]- 9876 November, Type 2 diabetes mellitus with other diabetic kidney complication E11.29 [facility] [address], [place] [address]- 6952 November, [facility] [id number] [place] [address] 12486- 2320 November, Type 2 diabetes mellitus with other diabetic kidney complication E11.29 [facility] [address], [place] [address]- 6688 November, [facility] [id number] [place] [address] 37943- 9636 November, Type 2 diabetes mellitus with other diabetic kidney complication E11.29 [place] [address], [place] [address]- 2147 November, [place] [address], [place] [address]- 6056 Oct, Essential hypertension I10 [place] [id number] [place] [address] 77371- 7854 Oct, Psoriasis of scalp L40.9 [place] [id number] [place] [address] 12216- 2761 Oct, Essential hypertension I10 and Chronic pain syndrome G89.4 [place] [id number] [place] [address] 22995- 5843 Oct, [place] [address] [place] [address] 75139- 3130 Sep, Type 2 diabetes mellitus with other diabetic kidney complication E11.29 [place] [address], [place] [address]- 7432 Sep, [place] [id number] [place] [address] 02528- 9416 Sep, Type 2 diabetes mellitus with other diabetic kidney complication E11.29 [place] [address], [place] [address]- 8707 Sep, Type 2 diabetes mellitus with other diabetic kidney complication E11.29 [place] [address], [place] [address]- 6659 Sep, Type 2 diabetes mellitus with other diabetic kidney complication E11.29 ; Chronic kidney disease, stage 4 (severe) N18.4 ; Chronic obstructive pulmonary disease, unspecified COPD type J44.9 ; Iron deficiency anemia due to chronic blood loss D50.0 ; prison current use of anticoagulant Z79.01 ; Gastroesophageal reflux disease without esophagitis K21.9 ; Essential hypertension I10 ; Primary insomnia F51.01 ; Depression, unspecified depression type F32.9 ; Chronic pain syndrome G89.4 ; Wrist pain, right M25.531 ; Paresthesia of right upper extremity R20.2 and Psoriasis of scalp L40.9 [facility] [id number] [place] [address] 36824- 2614 Sep, [facility] [id number] [place] [address] 37406- 5039 Aug, Essential hypertension I10 [facility] [address] 90317- 9991 Aug, History of DVT (deep vein thrombosis) Z86.718 [place] [address] 72093- 6397 Aug, [place] [id number] [place] [address] 13239- 1484 Jul, [place] [id number] [place] [address] 39778- 8976 Jul, [facility] [id number] [place] [address] 07909- 3126 Jul, prison current use of anticoagulant Z79.01 ; Chronic pain syndrome G89.4 and Chronic kidney disease, stage 4 (severe) N18.4 [place] [id number] [place] [address] 47901- 3290 Jul, [place] [id number] [place] [address] 34496- 1307 Jul, [place] [id number] [place] [address] 60057- 3330 Jul, [place] [id number] [place] [address] 10090- 3676 Jul, [facility] [id number] [place] [address] 63861- 9849 Jul, [place] [id number] [place] [address] 40967- 7398 Jul, Type 2 diabetes mellitus with other diabetic kidney complication E11.29 [facility] [address], [place] [address]- 7964 16 Jul, 2016 History of DVT (deep vein thrombosis) Z86.718 [facility] [address], [place] [address]- 3367 Jun, [place] [address] [place] [address] 05241- 4827 Jun, History of DVT (deep vein thrombosis) Z86.718 [place] [address] [place] [address] 26691- 8678 15 Jun, 2016 Post traumatic stress disorder (PTSD) F43.10 [place] [address] [place] [address] 75465- 5041 07 Jun, 2016 Type 2 diabetes mellitus [...] pain M79.641 and Right wrist pain M25.531 [place] [address], [place] [address]- 7638 May, [place] [address], [place] [address]- 1197 May, [place] [address], [place] [address]- 7133 May, [facility] [address] [id number] [place] [address] 254 May, [facility] [address] [facility] [id number] [place] [address] 2546 May, Anemia in other chronic diseases classified elsewhere D63.8 [facility] [address] [facility] [id number] [place] [address] 2546 May, [facility] [address] [facility] [id number] [place] [address] 2549 Apr, [facility] [address] [facility] [id number] [place] [address] 2541 27 Mar, 2016 Dermatofibroma D23.9 [facility] [address] [id number] [place] [address] 2546 20 Mar, 2016 [facility] [address] [facility] [id number] [place] [address], [place] [address] 2547 14 Mar, 2016 Chronic pain syndrome G89.4 [facility] [address] [facility] [id number] [place] [address] 2547 09 Mar, 2016 [facility] [address] [facility] [id number] [place] [address] 2546 07 Mar, 2015 [facility] [address] [facility] [id number] [place] [address]- 2547 06 Mar, 2016 [facility] [address] [facility] [id number] [place] [address] 2546 Feb, [facility] [address] [id number] [place] [address] 2546 Feb, [facility] [address] [facility] [id number] [place] [address] 2546 Feb, [facility] [address] [facility] [id number] [place] [address]- 2546 Feb, [facility] [address] [facility] [id number] [place] [address]- 8005 Feb, [facility] [address], [place] [address]- 4235 Feb, [place] [id number] [place] [address] 90670- 3658 Feb, Type 2 diabetes mellitus with other diabetic kidney complication E11.29 ; Diabetic polyneuropathy associated with type 2 diabetes mellitus E11.42 ; Iron deficiency anemia due to chronic blood loss D50.0 ; Chronic obstructive pulmonary disease, unspecified COPD type J44.9 ; manager long term care current use of anticoagulant Z79.01 ; History of DVT (deep vein thrombosis) Z86.718 ; Chronic pain syndrome G89.4 ; Oxygen desaturation during sleep G47.34 ; Sleep apnea in adult G47.33 ; Gastroesophageal reflux disease without esophagitis K21.9 ; Essential hypertension I10 ; Primary insomnia F51.01 ; Depression, unspecified depression type F32.9 and Renal failure, chronic, stage 4 (severe) N18.4 [facility] [id number] [place] [address] 19078- 0358 Feb, Skin tags, multiple acquired L91.8 [facility] [id number] [place] [address] 34088- 2433 Jan, [facility] [id number] [place] [address] [id number] Jan, Dental examination Z01.20 [place] [id number] [place] [address] 94666- 7248 Jan, [place] [id number] [place] [address]- 60[address] Jan, Type 2 diabetes mellitus with other [...] Renal failure, chronic, stage 4 (severe) N18.4 [facility] [address]00565100[place], [place] [address] Dec, Diabetes type 2, uncontrolled E11.65 [facility] [id number] [place] [address] 85583- 9617 Dec, [facility] [id number] [place] [address] 42345- 9675 Dec, Type 2 diabetes mellitus with other [...] F51.01 and Depression, unspecified depression type F32.9 [facility] [id number] [place] [address] [id number] Dec, Dental caries K02.[id number] [place] [address] [phone] Dec, [facility] [id number] [place] [address] [id number] Dec, Dental examination Z01.20 [facility] [id number] [place] [address] [id number] November, Dental examination Z01.20 and Dental caries K02.9 [facility] [id number] [place] [address] [id number] Oct, [address] [id number] [place] [address] [id number] Oct, [facility] [id number][place] [id number] Sep, [facility] [place] [id number][place] [id number] Sep, [facility] [place] [id number] [place] [address] [id number] Sep, [facility] [id number] [place] [address] [id number] Sep, Other chronic pain 338.29 [facility] [place] [id number] [place] [address] [id number] Aug, Diabetes type 2, uncontrolled E11.65 and Morbid obesity due to excess calories E66.01 [facility] [id number] [place] [address] [id number] Aug, Hair loss L65.9 [facility] [id number] [place] [address] [id number] Aug, [facility] [id number] [place] [address] [id number] Jul, [facility] [id number] [place] [address] [id number] Jul, [facility] [id number] [place] [address] [id number] Jun, [facility] [id number] [place] [address] [id number] Jun, Hair loss L65.9 and Disorder of the skin and subcutaneous tissue, unspecified L98.9 [facility] [id number] [place] [address] [id number] May, Type 2 diabetes mellitus with other diabetic kidney complication E11.29 ; Type 2 diabetes mellitus with hyperglycemia E11.65 ; Morbid obesity due to excess calories E66.01 and Essential hypertension I10 [facility] [id number] [place] [address] [id number] May, Diabetes type 2, uncontrolled E11.65 ; Encounter for immunization Z23 and Morbid obesity due to excess calories E66.01 [facility] [id number] [place] [address] [id number] May, [facility] [address]00565100[place], [place] [address] 133[address] Apr, [facility] [id number] [place] [address] [id number] Apr, Hyperglycemia R73.9 [facility] [id number] [place] [address] [id number] Apr, [facility] [id number] [place] [address] [id number] Apr, Depression F32.9 ; Encounter for immunization Z23 ; Hyperglycemia R73.9 and Anemia in other chronic diseases classified elsewhere D63.8 [facility] [address] [id number] [id number] Mar, [facility] [id number] [place] [address] [id number] Feb, Positive occult stool blood test 792.1 [address] [place] [id number] [place] [address] [id number] Feb, Depression 311 ; Other chronic pain 338.29 and Diabetes with renal manifestations, type II or unspecified type, not stated as uncontrolled 250.40 [facility] [address]00565100[place] [address] Feb, Occult blood in stools 792.1 [place] [id number] [place] [address] [id number] Feb, Anemia 285.9 ; Occult blood positive stool 792.1 ; Unspecified essential hypertension 401.9 and Other chronic pain 338.29 [facility] [id number], [place] [id number] Feb, [facility] [address]00565100[place] [id number] Feb, Anemia 285.9 [facility] [id number] [place] [address] [id number] Feb, [facility] [id number] [place] [address] [id number] Feb, [facility] [id number] [place] [address] [id number] Feb, Diabetes with renal manifestations, type II or unspecified type, not stated as uncontrolled 250.40 ; Other chronic pain 338.29 ; Unspecified essential hypertension 401.9 ; Anemia 285.9 and Depression 311 [facility] [id number] [place] [address] [id number] Jan, [facility] [place] [id number] [place] [address] [id number] Jan, Anemia 285.9 and Follow up V67.9 [facility] [place] [id number] [place] [address] [id number] Jan, [facility] [place] [id number] [place] [address] [id number] Jan, [facility] [place] [id number] [place] [address] [id number] Jan, [facility] [id number] [place] [address] [id number] Dec, [facility] [id number] [place] [address] 70260- 2546 Oct, [facility] [id number] [place] [address] 32696- 2546 Oct, [facility] [id number] [place] [address] 95256- 2546 Sep, [facility] [id number] [place] [address] [id number] Sep, [facility] [id number] [place] [address] 56685 2546 Sep, [facility] [id number] [place] [address] [id number] Aug, [facility] [id number] [place] [address] 58232- 2546 Aug, [facility] [id number] [place] [address] 79081- 2546 Aug, [facility] [id number] [place] [address] [id number] Aug, [facility] [address] [id number], [place] [address]- 5036 Aug, [facility] [place] [facility] [address] [facility] [id number] [address]- 9058 Aug, [facility] [place] [address] [facility] [id number][place] [id number] Aug, [facility] [place] [facility] [address] [facility] [id number] [address]- 5776 Aug, [facility] [place] [address] [facility] [id number][place] [id number] Jul, [facility] [place] [facility] [address] [facility] [id number], [place] [address]- 1313 Jul, [facility] [place] [facility] [address] [facility] [id number], [place] [address]- 5772 Jul, [facility] [place] [id number] [id number] Jul, [facility] [place] [facility] [address] [id number], [place] [address]- 9246 Jul, [facility] [place] [address] [facility] [id number], [place] [id number] Jul, [facility] [place] [facility] [address] [id number], [place] [address]- 5760 Jul, [facility] [place] [address] [facility] [id number][place] [id number] Jun, [facility] [place] [address] [facility] [id number][place] [id number] Jun, [facility] [place] [facility] [address] [facility] [id number] [address]- 5145 Jun, [facility] [place] [facility] [address] [facility] [id number], [place] [address]- 3017 Jun, [facility] [place] [address] [facility] [id number], [place] [id number] Jun, [facility] [place] [facility] [address] [facility] [id number][place] [address]- 1169 Jun, [facility] [place] [address] [id number][place] [id number] May, [facility] [place] [facility] [address] [facility] [id number], [place] [address]- 1016 May, [facility] [place] [facility] [address] [facility] [id number], [place] [address]- 9156 May, [facility] [place] [address] [facility] [id number], [place] [id number] Apr, [facility] [place] [facility] [address] [facility] [id number], [place] [address]- 1666 Apr, [facility] [place] [address] [id number] [place] [id number] Apr, [facility] [place] [address] [facility] [id number], [place] [id number] Apr, [facility] [place] [facility] [address]65100[place], [place] [address]- 3932 Apr, [facility] [place] [facility] [address] [facility] [id number], [place] [address]- 4439 Apr, [facility] [place] [address] [facility] [id number], [place] [id number] Mar, [facility] [place] [facility] [address] [facility] [id number], [place] 633200- 8717 18 Mar, 2014 [facility] [place] [address] [facility] [id number], [place] [id number] Mar, [facility] [place] [facility] [address] [facility] [id number], [place] [address]- 5789 17 Mar, 2014 [facility] [place] [address] [facility] [id number], [place] [id number] 16 Mar, 2014 [facility] [place] [facility] [address] [facility] [id number], [place] [address]- 4153 16 Mar, 2014 [facility] [place] [address] [facility] [id number], [place] [id number] 05 Mar, 2014 [facility] [place] [facility] [address] [facility] [id number] [address]- 6731 Mar, [facility] [place] [address] [id number] [place] [id number] Mar, [facility] [place] [facility] [address] [id number] [address]- 7996 Mar, [facility] [place] [address] [id number] [place] [id number] Feb, [facility] [place] [facility] [address] [id number] [place] [address]- 9856 Feb, [facility] [place] [address] [id number] [place] [id number] Jan, [facility] [place] [facility] [address] [facility] [id number] [place] [address]- 9370 Jan, [facility] [place] [address] [id number] [place] [id number] Jan, [facility] [place] [facility] [address] [facility] [id number] [place] [address]- 3594 Jan, [facility] [place] [address] [facility] [id number] [place] [id number] Jan, [facility] [place] [facility] [address] [facility] [id number][place] [address]- 5681 Jan, [facility] [place] [facility] [address] [facility] [id number], [place] [address]- 1660 Dec, [facility] [place] [facility] [address] [facility] [id number], [place] [address]- 9272 Dec, [facility] [place] [address] [id number] [place] [id number] November, [facility] [place] [facility] [address] [id number] [place] [address]- 3192 November, [facility] [place] [address] [id number] [place] [id number] November, [facility] [place] [facility] [address] [id number] [place] [address]- 5291 November, [facility] [place] [address] [id number][place] [id number] Oct, [facility] [place] [facility] [address] [facility] [id number] [address]- 2926 Oct, [facility] [place] [facility] [address] [facility] [id number] [place] [address]- 6406 Oct, [facility] [place] [facility] [address] [facility] [id number] [place] [address]- 5636 Oct, [facility] [place] [facility] [address] [facility] [id number], [place] [address]- 8476 Oct, [facility] [place] [facility] [address] [facility] [id number] [place] [address]- 0126 Oct, [facility] [place] [address] [facility] [id number], [place] [id number] Sep, [facility] [place] [address] [facility] [id number], [place] [id number] Sep, [facility] [place] [facility] [address] [facility] [id number], [place] [address]- 5950 Sep, [facility] [place] [facility] [address] [facility] [id number], [place] [address]- 3820 Sep, [facility] [place] [address] [facility] [id number], [place] 033517418 Sep, [facility] [place] [facility] [address] [facility] [id number], [place] [address]- 6390 Sep, [facility] [place] [facility] [address] [facility] [id number], [place] [address]- 5216 Aug, [facility] [place] [facility] [address] [facility] [id number], [place] [address]- 6077 Aug, [facility] [place] [address] [id number], [place] 082123587 Aug, [facility] [place] [address] [facility] [id number], [place] [id number] Aug, [facility] [place] [facility] [address] [facility] [id number], [place] [address]- 7006 Aug, [facility] [place] [address] [id number] [place] [id number] Aug, [facility] [place] [facility] [address] [facility] [id number] [place] [address]- 2546 Aug, [facility] [place] [address] [id number] [place] [id number] Aug, [facility] [place] [facility] [address] [facility] [id number] [place] [address]- 2546 Aug, [facility] [place] [address] [id number] [place] [id number] Aug, [facility] [place] [facility] [address] [facility] [id number] [place] [address]- 2546 Aug, [facility] [place] [address] [id number] [place] [id number] Aug, [facility] [place] [facility] [address], [place] [address]- 2546 Aug, [facility] [place] [facility] [address] [id number], [place] [address]- 2546 Jul, [facility] [place] [address] [facility] [id number] [place] [id number] Jun, [facility] [place] [facility] [address] [id number], [place] [address]- 2546 Jun, [facility] [place] [facility] [address] [id number], [place] [address]- 2546 Jun, [facility] [place] [facility] [address] [facility] [id number], [place] [address]- 2546 Jun, [facility] [place] [address] [facility] [id number] [place] [id number] Jun, [facility] [place] [facility] [address] [facility] [id number], [place] [address]- 2546 Jun, [facility] [place] [facility] [address] [facility] [id number], [place] [address]- 2546 Jun, [facility] [place] [address] [facility] [id number], [place] 128508052 Jun, [facility] [place] [facility] [address] [facility] [id number], [place] [address]- 1239 Jun, [facility] [place] [facility] [address] [facility] [id number], [place] [address]- 4263 May, [facility] [place] [address] [facility] [id number], [place] 793479495 May, [facility] [place] [facility] [address] [facility] [id number], [place] [address]- 0295 May, [facility] [place] [facility] [address] [facility] [id number], [place] [address]- 4997 May, [facility] [place] [facility] [address] [id number], [place] [address]- 5942 May, [facility] [place] [facility] [address] [id number], [place] [address]- 1730 May, [facility] [place] [address] [id number], [place] 186493253 May, [facility] [place] [facility] [address] [facility] [id number], [place] [address]- 1091 May, [facility] [place] [address] [id number], [place] 446793934 May, [facility] [place] [facility] [address] [facility] [id number], [place] [address]- 4872 May, [facility] [place] [address] [facility] [id number], [place] 366916323 Apr, [facility] [place] [facility] [address] [facility] [id number], [place] [address]- 2797 Apr, [facility] [place] [facility] [address] [facility] [id number], [place] 46027028- 9048 Apr, [facility] [place] [address] [facility] [id number], [place] 690722369 Apr, [facility] [place] [facility] [address] [facility] [id number], [place] 04498197- 3857 Apr, [facility] [address] [id number], [place] [address]- 9204 Apr, [facility] [place] [address] [facility] [id number], [place] 390904513 Apr, [facility] [address] [id number], [place] [address]- 3644 Apr, [facility] [place] [facility] [address] [facility] [id number], [place] [address]- 4824 Apr, [facility] [address] [id number], [place] [address]- 4043 Apr, [facility] [place] [address] [facility] [id number], [place] 447909029 Apr, [facility] [address] [facility] [id number], [place] [address]- 5216 Apr, [facility] [place] [address] [id number], [place] 678152676 Apr, [facility] [address] [id number], [place] [address]- 1991 Apr, [facility] [place] [address] [id number], [place] 561189324 Apr, [facility] [address] [facility] [id number], [place] [address]- 4526 Apr, [facility] [place] [facility] [address] [facility] [id number], [place] [address]- 1046 Apr, [facility] [place] [facility] [address] [facility] [id number], [place] [address]- 3696 Apr, [facility] [place] [address] [facility] [id number], [place] 481741211 Apr, [facility] [place] [facility] [address] [facility] [id number][place] [address]- 3216 Mar, [facility] [place] [facility] [address] [facility] [id number], [place] [address]- 1827 Mar, [facility] [place] [address] [id number] [place] 4231728[place] Mar, [facility] [place] [address] [id number] [place] 737945391 Mar, [facility] [place] [address] [id number] [place] 509595882 Mar, [facility] [place] [address] [id number] [place] 365093522 Feb, [facility] [place] [address] [id number] [place] 732350725 Feb, [facility] [place] [address] [id number] [place] 332669111 Feb, [facility] [address]00565100[place], [place] [address]- 5403 Feb, [facility] [place] [address] [id number] [place] 395392751 Feb, [facility] [place] [address] [id number] [place] 400439859 Feb, [facility] [place] [address] [id number] [place] 175639800 Feb, [facility] [place] [address] [id number] [place] 195086713 Feb, [facility] [place] [address] [id number] [place] 273196347 Feb, [facility] [place] [address] [id number] [place] 635180722 Jan, [facility] [place] [address] [id number] [place] 177526967 Jan, [facility] [place] [address] [id number] [place] 259365500 Jan, [facility] [place] [address] [id number] [place] 076125396 Jan, [facility] [place] [address] [id number] [place] 601836571 Jan, [facility] [address] [facility] [id number], [place] 89834742- 4470 Jan, [facility] [place] [address] [id number] [place] 632756300 Jan, [facility] [place] [address] [id number] [place] 758915203 Jan, [facility] [place] [address] [id number] [place] 706964096 Dec, [facility] [place] [address] [id number] [place] [id number] November, [facility] [place] [address] [id number] [place] [id number] November, [facility] [place] [address] [id number] [place] [id number] November, [facility] [place] [address] [id number] [place] [id number] November, [facility] [place] [address] [id number] [place] [id number] November, [facility] [place] [address] [id number] [place] [id number] November, [facility] [place] [address] [id number] [place] [id number] Jul, [facility] [place] [address] [id number] [place] [id number] Jul, [facility] [place] [address] [id number] [place] [id number] Jul, [facility] [place] [address] [id number] [place] [id number] Jun, [facility] [address] [facility] [id number], [place] [address] Jun, [facility] [place] [address] [id number] [place] [id number] May, [facility] [address] [facility] [id number], [place] [address] May, [facility] [place] [address] [id number] [place] [id number] May, [facility] [address] [facility] [id number], [place] [address] May, [facility] [place] [address] [id number][place] [id number] May, [facility] [place] [facility] [address] [facility] [id number], [place] [address] May, [facility] [place] [address] [id number][place] [id number] Apr, [facility] [place] [facility] [address] [facility] [id number], [place] [address] Apr, [facility] [place] [facility] [address] [facility] [id number], [place] [address] Apr, [facility] [place] [address] [id number][place] [id number] Apr, [facility] [place] [address] [id number][place] [id number] Apr, [facility] [id number], [place] [address] Apr, [facility] [id number], [place] [address] Apr, [facility] [place] [address] [id number][place] [id number] Apr, [facility] [address] [facility] [id number], [place] [address] Apr, [facility] [place] [address] [id number][place] [id number] Apr, [facility] [place] [address] [id number], [place] [id number] Apr, [facility] [place] [address] [id number], [place] [id number] Mar, [facility] [place] [address] [id number], [place] [id number] Feb, [facility] [place] [address] [id number], [place] [id number] Jan, [facility] [place] [address] [id number], [place] [id number] Dec, [facility] [place] [address] [id number], [place] [id number] Dec, [facility] [place] [address] [id number] [place] [id number] Dec, [facility] [place] [address] [id number] [place] [id number] Dec, [facility] [place] [address] [id number] [place] [id number] Dec, [facility] [place] [address] [id number] [place] [id number] November, [facility] [place] [address] [id number] [place] [id number] November, [facility] [place] [address] [id number] [place] [id number] November, [facility] [address] [facility] [id number], [place] [address] November, [facility] [place] [address] [id number] [place] [id number] November, [facility] [place] [address] [id number] [place] [id number] November, [facility] [place] [address] [id number] [place] [id number] Oct, [facility] [place] [address] [id number] [place] [id number] Oct, [facility] [place] [address] [id number] [place] [id number] Oct, [facility] [place] [address] [id number] [place] [id number] Oct, [facility] [place] [address] [id number] [place] [id number] Oct, [facility] [place] [address] [id number] [place] [id number] Oct, [facility] [place] [address] [id number] [place] [id number] Sep, [facility] [place] [address] [id number] [place] [id number] Aug, [facility] [place] [address] [id number] [place] [id number] Aug, [facility] [place] [address] [id number][place] [id number] 10 Jul, 2011 [facility] [address] [id number] [place] [address] Jun, [facility] [address] [id number] [place] [address] Jun, [facility] [address] [id number] [place] [address] Jun, [facility] [address] [id number] [place] [address] Jun, [facility] [address] [id number] [place] [id number] May, [facility] [address] [id number] [place] [address] May, [facility] [address] [id number] [place] [address] Apr, [facility] [address] [id number] [place] [address] Apr, [facility] [address] [id number] [place] [address] Apr, [facility] [address] [id number] [place] [address] Feb, [facility] [address] [id number] [place] [address] Aug, [facility] [address] [id number] [place] [address] Jul, [facility] [place] [facility] [address] [id number] [place] [address] Jun, [facility] [place] [facility] [address] [id number] [place] [address] May, [facility] [place] [facility] [address] [id number] [place] [address] May, [facility] [address] [facility] [id number], [place] [address] May, [facility] [address] [facility] [id number], [place] [address] May, [facility] [address] [id number] [address] May, [facility] [address] [facility] [id number], [place] [address] Aug, [facility] [address] [facility] [id number], [place] [address] Jun, [facility] [address] [id number], [place] [address] Jun, [facility] [address] [id number], [place] [address] Jun, [facility] [address] [id number], [place] [address] May, [facility] [address] [id number], [place] [address] Apr, [facility] [id number], [place] [address] Apr, [facility] [id number], [place] [address] Apr, 2009 [facility] [address] [id number], [place] [address] Jan, [facility] [address] [id number], [place] [address] Oct, [facility] [address] [id number], [place] [address] May, [facility] [address] [id number] [address] May, IMMUNIZATIONS No Known Immunizations SOCIAL HISTORY Never Assessed REASON FOR VISIT Swelling in feet and up the legs---GILDARDO sanchez PLAN OF CARE Activity Details Follow Up pt needs to make appt with PCP for chronic health conditions or make appt to transition care to another provider of choice Reason: VITAL SIGNS Height 64 in 2017-10-07 Temperature 97.9 degrees Fahrenheit 2017-10-07 Heart Rate 94 bpm 2017-10-07 Respiratory Rate 20 2017-10-07 Blood pressure systolic 124 mmHg 2017-10-07 Blood pressure diastolic 52 mmHg 2017-10-07 MEDICATIONS Medication Instructions Dosage Frequency Start Date End Date Duration Status Biotin 1000 MCG Orally Once a day 1 tablet 24h Active Protonix 40 mg Orally Once a day 1 tablet 24h 90 days Active Seroquel 50 mg Orally Once a day at bedtime 1 tablet 30 Active Oxygen Portable oxygen concentrator 2L NC May, Active Verapamil HCl ER 240 MG Orally Once a day in the morning 1 tablet Active Torsemide 100 mg Orally Once a day 1/2 tablet 24h 30 Active Glucometer ... as directed Active Eliquis 5 MG TAKE DIRECTED TWO (2) TIMES DAILY. Active Fish Oil Concentrate 1000 MG Orally Twice a day. 2 in AM, 1 in PM 1 capsule Apr, Active Tramadol HCl 50 mg Orally every 6 hrs, may take up to 3 times daily 1 tablet as needed for pain Active Multivitamin Orally Once a day 1 tablet 24h Dec, Active Melatonin 10 mg 2 Tablet by Oral route 1 time per dayat bedtime Active Savella 100 mg Orally Twice a day 1 tablet 12h 28 Active Carafate 1 GM Orally Twice a day 1 tablet on an empty stomach 12h 90 days Active Gabapentin 600 MG Orally 3 times a day 1 tablet 8h 28 days Active NovoLog Flexpen 100 UNIT/ML ICD10- E11.29 3 times a day with meals 50 Jul, Active Lipitor 40 mg Orally Once a day 1 tablet 24h Active Ferrous Sulfate 325 (65 Fe) MG TAKE ONE (1) TABLET BY MOUTH TWICE DAILY... Active Tresiba FlexTouch 200 UNIT/ML ICD10- E11.29 daily 105 units 24h Active BD Pen BD PEN NEEDLE MARSHA subcut 3 times a day as directed 8h Active Albuterol Sulfate 90 mcg/actuation inhalation every 4-6 hours as needed 1-2 puffs Active Victoza 18 MG/3ML INJECT 1.8 MG SUBCUTANEOUSLY ONCE DAILY... Active Clobetasol Propionate 0.05 % Externally every other day 1 application to scalp Sep, 30 days Not-Taking LidoPatch Pain Relief 3.99-1.25 % Externally Once a day 1 patch to skin remove after 12 hours 24h 30 Active Trazodone HCl 150 MG Orally Once a day at bedtime as needed 1 tablet Active Test strips ... True Test Active Cozaar 50 mg Orally Once a day 1 tablet 24h Active Oxygen 2 L/NC .... daily Active [...] Dialysis [facility] 2012 -Dr. Simon now [facility] Medical History Colonoscopy (polyps 2 ) [...] removed 2 polyps 07/24/2015 Surgical History heartcath---[facility]--Dr. Rich 10/06/2017 Hospitalization History [facility] x[facility] 4 days for SOB, edema January 2015 Hospitalization History [facility] for leg pain 05/2015 Hospitalization History Anemia and transfusion 2015 Hospitalization History kidney failure 12/22/2017
--- OUTSIDE RECORDS SUMMARY | 2018-02-13 13:51 | XMS REPORT ---
Author Author CHELSY VILLAFANA [facility] Address [address] [place] [address] Care Team Providers Care Silver Chaser Name Role Phone CHELSY VILLAFANA Unavailable PROBLEMS Type Condition ICD9-CM Code IIH24-CW Code Onset Dates Condition Status SNOMED Code Problem Chronic kidney disease, stage 4 (severe) N18.4 Active 665482133 Problem Psoriasis of scalp L40.9 Active 375467596 Problem Type 2 diabetes mellitus with hyperglycemia E11.65 Active 678514648398851 Problem Fibromyalgia M79.7 Active 097498769 Problem History of DVT (deep vein thrombosis) Z86.718 Active 994350229 Problem Carpal tunnel syndrome, bilateral G56.03 Active 94027189610052906 Problem Type 2 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 Active 466206099 Problem Anemia in other chronic diseases classified elsewhere D63.8 Active 880780647 Problem prison 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 Active 891238661 Problem Paresthesia of right upper extremity R20.2 Active 87790130 Problem Bilateral lower extremity edema R60.0 Active 115669624 Problem Supplemental oxygen dependent Z99.81 Active 714358825075 Problem Sleep apnea in adult G47.33 Active 63751790 Problem Chronic pain syndrome G89.4 Active 981561296 Problem 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 Active 308577713 Problem Essential hypertension I10 Active 66095714 Problem Gastroesophageal reflux disease without esophagitis K21.9 Active 707473750 Problem Chronic obstructive pulmonary disease, unspecified COPD type J44.9 Active 51902603 Problem 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 Active 880286636307489 Problem Primary insomnia F51.01 Active 3040609 Problem Oxygen desaturation during sleep G47.34 Active 177938997 Problem Right carpal tunnel syndrome G56.01 Active 903357377379673 Problem Diabetic polyneuropathy associated with type 2 diabetes mellitus E11.42 Active 45063545 Problem Depression, unspecified depression type F32.9 Active 02955532 ALLERGIES No Information ENCOUNTERS Encounter Location Date Diagnosis [facility] [id number] [place] [address] 86532- 5667 Jan, [facility] [id number] [place] [address] 57503- 6781 Jan, Essential hypertension I10 [facility] [id number] [place] [address] 97131- 1496 Jan, Chronic obstructive pulmonary disease, unspecified COPD type J44.9 [facility] [id number] [place] [address] 92217- 0647 Jan, [facility] [id number] [place] [address] 30835- 5359 Jan, [facility] [id number] [place] [address] 03780- 6247 Jan, Type 2 diabetes mellitus with other diabetic kidney complication E11.29 ; Anemia in other chronic diseases classified elsewhere D63.8 ; Chronic obstructive pulmonary disease, unspecified COPD type J44.9 and BMI 60.0-69.9, adult Z68.44 [facility] [id number] [place] [address] 47687- 9589 Jan, [facility] [id number] [place] [address] 40202- 9088 Jan, [id number] [place] [address] [id number] Jan, [place] [id number] [place] [address] [phone] Dec, [place] [id number] [place] [address] [phone] Dec, [place] [id number] [place] [address] [phone] Dec, Essential hypertension I10 ; Type 2 diabetes mellitus with other diabetic kidney complication E11.29 ; Depression, unspecified depression type F32.9 ; Supplemental oxygen dependent Z99.81 ; Chronic pain syndrome G89.4 ; Fibromyalgia M79.7 ; Carpal tunnel syndrome, bilateral G56.03 and Chronic kidney disease, stage 4 (severe) N18.4 [facility] [id number] [place] [address] 33203- 5600 Dec, Essential hypertension I10 [facility] [id number] [place] [address] 52423- 4109 November, Type 2 diabetes mellitus with other diabetic kidney complication E11.29 [facility] [id number] [place] [address] 68754- 1923 November, Chronic pain syndrome G89.4 [facility] [id number] [place] [address] 18756- 9141 November, [facility] [id number] [place] [address] 86298- 4052 November, [facility] [id number] [place] [address] 06575- 2326 November, [facility] [id number] [place] [address] 18770- 5888 Oct, Type 2 diabetes mellitus with other diabetic kidney complication E11.29 [facility] [id number] [place] [address] 98550- 5748 Oct, Primary insomnia F51.01 [facility] [id number] [id number] Oct, Bilateral lower extremity edema R60.0 [facility] [id number] [place] [address] 61783- 1137 Oct, [facility] [address] [place] [address] 07385- 6963 Sep, Type 2 diabetes mellitus with other diabetic kidney complication E11.29 and Chronic obstructive pulmonary disease, unspecified COPD type J44.9 [facility] [address] [place] [address] 06857- 3978 Aug, Type 2 diabetes mellitus with other diabetic kidney complication E11.29 [place] [address] [address]- 7430 12 Aug, 2017 Gastroesophageal reflux disease without esophagitis K21.9 ; prison current use of anticoagulant Z79.01 ; Chronic pain syndrome G89.4 ; Essential hypertension I10 and Type 2 diabetes mellitus with other diabetic kidney complication E11.29 [facility] [id number] [place] [address] 01082- 6436 08 Aug, 2017 Chronic pain syndrome G89.4 [facility] [id number] [place] [address] 59040- 9258 Aug, Type 2 diabetes mellitus with other diabetic kidney complication E11.29 [place] [id number] [place] [address] 01931- 2059 Jul, Diabetic polyneuropathy associated with type 2 diabetes mellitus E11.42 [place] [id number] [place] [address] 39325- 2154 Jul, Primary insomnia F51.01 [facility] [id number] [place] [address] 73192- 1480 Jul, [facility] [id number] [place] [address] 67671- 7517 Jul, Type 2 diabetes mellitus with other diabetic kidney complication E11.29 and Chronic obstructive pulmonary disease, unspecified COPD type J44.9 [facility] [id number] [place] [address] 98311- 9693 Jul, Type 2 diabetes mellitus with other diabetic kidney complication E11.29 [facility] [id number] [place] [address] 85838- 1223 Jun, Type 2 diabetes mellitus with other diabetic kidney complication E11.29 [facility] [id number] [place] [address] 47612- 4367 Jun, [facility] [id number] [place] [address] 40619- 3992 Jun, Chronic obstructive pulmonary disease, unspecified COPD type J44.9 [place] [address] [place] [address] 32294- 6080 May, Type 2 diabetes mellitus with other diabetic kidney complication E11.29 [place] [id number] [place] [address] 14762- 5494 May, prison current use of anticoagulant Z79.01 and Essential hypertension I10 [address] 84643- 9387 May, Anemia in other chronic diseases classified elsewhere D63.8 ; Chronic obstructive pulmonary disease, unspecified COPD type J44.9 ; Oxygen desaturation during sleep G47.34 ; Sleep apnea in adult G47.33 and Supplemental oxygen dependent Z99.81 [id number] [place] [address] 95557- 0729 May, Type 2 diabetes mellitus with other diabetic kidney complication E11.29 ; Essential hypertension I10 ; Chronic pain syndrome G89.4 ; BMI 40.0-44.9, adult Z68.41 ; Gastroesophageal reflux disease without esophagitis K21.9 ; prison current use of anticoagulant Z79.01 ; prison 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 ; Diabetic polyneuropathy associated with type 2 diabetes mellitus E11.42 ; Edema of both legs R60.0 and Supplemental oxygen dependent Z99.81 [place] [id number] [place] [address] 88418- 2918 May, [place] [id number] [place] [address] 50044- 4190 May, Essential hypertension I10 and Gastroesophageal reflux disease without esophagitis K21.9 [place] [id number] [place] [address] 32321- 3897 May, [id number] [place] [address] 93245- 7932 May, Type 2 diabetes mellitus with other diabetic kidney complication E11.29 and prison current use of anticoagulant Z79.01 [place] [address] 22429- 3729 Apr, Chronic pain syndrome G89.4 and Essential hypertension I10 [place] [id number] [place] [address] 61530- 5990 Apr, Type 2 diabetes mellitus with other diabetic kidney complication E11.29 [place] [id number] [place] [address] 55473- 9727 Apr, Type 2 diabetes mellitus with other diabetic kidney complication E11.29 [place] [id number] [place] [address] 60572- 4703 Apr, Essential hypertension I10 [place] [id number] [place] [address] 89952- 5202 Apr, Gastroesophageal reflux disease without esophagitis K21.9 [place] [id number] [place] [address] 67487- 1142 Apr, Type 2 diabetes mellitus with other diabetic kidney complication E11.29 [place] [id number] [place] [address] 36164- 8641 Apr, Type 2 diabetes mellitus with other diabetic kidney complication E11.29 and 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 [place] [id number] [place] [address] 94575- 2573 Mar, Encounter for immunization Z23 and Preoperative examination Z01.818 [place] [id number] [place] [address] 06470- 3781 Mar, [place] [id number] [place] [address] 52332- 6609 Mar, Type 2 diabetes mellitus with other diabetic kidney complication E11.29 [place] [address] 67718- 2561 Mar, Type 2 diabetes mellitus with other diabetic kidney complication E11.29 [place] [id number] [place] [address] 49934- 0081 Mar, Gastroesophageal reflux disease without esophagitis K21.9 [place] [address], [place] [address]- 9638 Mar, Essential hypertension I10 [facility] [address] [place] [address] 72915- 5816 Feb, prison current use of anticoagulant Z79.01 [facility] [address], [place] [address]- 2109 Feb, Type 2 diabetes mellitus with other diabetic kidney complication E11.29 [facility] [address] [place] [address] 61961- 9890 Feb, Type 2 diabetes mellitus with other diabetic kidney complication E11.29 [facility] [id number] [place] [address] 42169- 3949 Feb, Type 2 diabetes mellitus with other diabetic kidney complication E11.29 [facility] [address] [place] [address] 08977- 8404 Feb, Gastroesophageal reflux disease without esophagitis K21.9 [facility] [address] [place] [address] 05176- 2995 Feb, Type 2 diabetes mellitus with other diabetic kidney complication E11.29 [facility] [address] [place] [address] 51523- 6083 Feb, 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 [facility] [address], [place] [address]- 3073 Jan, Type 2 diabetes mellitus with other diabetic kidney complication E11.29 [facility] [address], [place] [address]- 2809 Jan, Type 2 diabetes mellitus with other diabetic kidney complication E11.29 [facility] [address], [place] [address]- 1749 Jan, Chronic pain syndrome G89.4 [facility] [address], [place] [address]- 2227 Jan, [facility] [address], [place] [address]- 7665 Jan, [facility] [address], [place] [address]- 8389 Jan, [facility] [address], [place] [address]- 0630 Jan, [facility] [id number] [place] [address] 18155- 3345 Jan, Primary insomnia F51.01 ; Type 2 diabetes mellitus with other diabetic kidney complication E11.29 ; Chronic pain syndrome G89.4 and Essential hypertension I10 [facility] [id number] [place] [address] 06390- 0055 Jan, Primary insomnia F51.01 [facility] [id number] [place] [address] 15296- 2405 Jan, Type 2 diabetes mellitus with other diabetic kidney complication E11.29 [facility] [address], [place] [address]- 8433 Jan, [facility] [address] [place] [address] 43764- 5685 Jan, Chronic obstructive pulmonary disease, unspecified COPD type J44.9 [facility] [address], [place] [address]- 1300 Jan, Essential hypertension I10 ; Type 2 [...] E11.42 [facility] [address], [place] [address]- 1994 Jan, Gastroesophageal reflux disease without esophagitis K21.9 [facility] [id number] [place] [address] 30464- 5121 Dec, [facility] [address], [place] [address]- 5321 Dec, [facility] [id number] [place] [address] 79541- 2906 Dec, prison current use of anticoagulant Z79.01 ; Chronic pain syndrome G89.4 and Essential hypertension I10 [facility] [id number] [place] [address] 19421- 0296 Dec, [facility] [id number] [place] [address] 13525- 1634 Dec, Type 2 diabetes mellitus with other diabetic kidney complication E11.29 [facility] [id number] [place] [address] 65975- 9707 Dec, [facility] [id number] [place] [address] 48785- 1807 Dec, Gastroesophageal reflux disease without esophagitis K21.9 [facility] [id number] [address]- 7664 November, Type 2 diabetes mellitus with other diabetic kidney complication E11.29 [facility] [address], [place] [address]- 0847 November, [facility] [address], [place] [address]- 0577 November, Type 2 diabetes mellitus with other diabetic kidney complication E11.29 [facility] [address], [place] [address]- 1335 November, [facility] [address], [place] [address]- 4501 November, Type 2 diabetes mellitus with other diabetic kidney complication E11.29 [facility] [address], [place] [address]- 8170 November, [facility] [address], [place] [address]- 8386 Oct, Essential hypertension I10 [place] [address] [place] [address] 14882- 1077 Oct, Psoriasis of scalp L40.9 [place] [id number] [place] [address] 73982- 0867 Oct, Essential hypertension I10 and Chronic pain syndrome G89.4 [place] [id number] [place] [address] 64097- 1257 Oct, [place] [id number] [place] [address] 60318- 1059 Sep, Type 2 diabetes mellitus with other diabetic kidney complication E11.29 [place] [id number] [place] [address] 61015- 5100 Sep, [place] [id number] [place] [address] 08568- 7337 Sep, Type 2 diabetes mellitus with other diabetic kidney complication E11.29 [place] [id number] [place] [address] 26001- 8257 Sep, Type 2 diabetes mellitus with other diabetic kidney complication E11.29 [place] [id number] [place] [address] 48601- 2469 Sep, Type 2 diabetes mellitus with other [...] extremity R20.2 and Psoriasis of scalp L40.9 [place] [address], [place] [address]- 9993 Sep, [place] [address] [address]- 1475 Aug, Essential hypertension I10 [facility] [id number] [place] [address] 97120- 7261 Aug, History of DVT (deep vein thrombosis) Z86.718 [facility] [id number] [place] [address] 11573- 0699 Aug, [facility] [id number] [place] [address] 04388- 2362 Jul, [facility] [id number] [place] [address] 45549- 9988 Jul, [facility] [id number] [place] [address] 77883- 3840 Jul, 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 ; Chronic pain syndrome G89.4 and Chronic kidney disease, stage 4 (severe) N18.4 [facility] [id number] [place] [address] 03269- 1496 Jul, [facility] [id number] [place] [address] 66040- 9267 Jul, [facility] [id number] [place] [address] 55905- 2662 Jul, [facility] [id number] [place] [address] 72200- 8834 Jul, [facility] [id number] [place] [address] 84354- 0537 Jul, [facility] [id number] [place] [address] 42082- 2875 Jul, Type 2 diabetes mellitus with other diabetic kidney complication E11.29 [facility] [id number] [place] [address] 01192- 4274 Jul, History of DVT (deep vein thrombosis) Z86.718 [facility] [id number] [place] [address] 77478- 1759 Jun, [facility] [id number], [place] [address]- 1907 19 Jun, 2016 History of DVT (deep vein thrombosis) Z86.718 [facility] [address], [place] [address]- 4521 15 Jun, 2016 Post traumatic stress disorder (PTSD) F43.10 [place] [id number] [place] [address] 82560- 9165 07 Jun, 2016 Type 2 diabetes mellitus [...] pain M79.641 and Right wrist pain M25.531 [place] [address], [place] [address]- 9688 May, [place] [address], [place] [address]- 4183 May, [place] [address], [place] [address]- 7624 May, [place] [id number] [place] [address] 27239- 6585 May, [place] [address], [place] [address]- 6824 May, Anemia in other chronic diseases classified elsewhere D63.8 [place] [address] [facility] [id number] [place] [address] 2549 02 May, 2016 [facility] [address] [facility] [id number] [place] [address] 2542 10 Apr, 2016 [facility] [address] [facility] [id number] [place] [address] 2544 27 Mar, 2015 Dermatofibroma D23.9 [facility] [address] [facility] [id number] [place] [address], [place] [address] 2546 20 Mar, 2015 [facility] [address] [facility] [id number] [place] [address] 2541 14 Mar, 2015 Chronic pain syndrome G89.4 [facility] [address] [facility] [id number] [place] [address]- 9170 09 Mar, 2015 [facility] [address] [place] [address]- 8581 07 Mar, 2015 [facility] [id number] [place] [address]- 4595 06 Mar, 2016 [facility] [id number] [place] [address]- 3015 30 Feb, 2016 [facility] [address] [facility] [id number] [place] [address]- 2542 Feb, [facility] [id number] [place] [address]- 7211 Feb, [facility] [address] [facility] [id number] [place] [address]- 2544 Feb, [facility] [address] [facility] [id number] [place] [address] 2540 Feb, [facility] [address] [facility] [id number] [place] [address]- 2542 Feb, [facility] [address] [facility] [id number] [place] [address]- 2540 Feb, Type 2 diabetes mellitus with other [...] N18.4 [facility] [id number] [place] [address] 19833- 0989 Feb, Skin tags, multiple acquired L91.8 [facility] [id number] [place] [address] 61896- 0523 Jan, [facility] [id number] [place] [address] [id number] Jan, Dental examination Z01.20 [facility] [id number] [place] [address] 91770- 1115 Jan, [facility] [id number] [place] [address] 37296- 2400 Jan, Type 2 diabetes mellitus with other [...] N18.4 [facility] [id number] [place] [address] 61016- 5636 Dec, Diabetes type 2, uncontrolled E11.65 [facility] [address], [place] [address]- 1796 Dec, [facility] [id number], [place] [address] Dec, Type 2 diabetes mellitus with other [...] F51.01 and Depression, unspecified depression type F32.9 [facility] [id number] [place] [id number] Dec, Dental caries K02.9 [facility] [id number] [place] [id number] [phone] Dec, [facility] [address] [id number] Dec, Dental examination Z01.20 [facility] [id number] [place] [phone] November, Dental examination Z01.20 and Dental caries K02.9 [facility] [id number] [place] [address] [id number] Oct, [facility] [address] [id number] [place] [address] [id number] Oct, [facility] [address] [id number] [place] [address] [id number] Sep, [facility] [address] [id number] [place] [address] [id number] Sep, [facility] [address] [id number] [place] [address] [id number] Sep, [facility] [id number], [place] [id number] Sep, Other chronic pain 338.29 [facility] [place] [id number] [place] [address] [id number] Aug, Diabetes type 2, uncontrolled E11.65 and Morbid obesity due to excess calories E66.01 [facility] [place] [id number], [place] [id number] Aug, Hair loss L65.9 [facility] [place] [id number] [place] [address] [id number] Aug, [facility] [place] [id number], [place] [id number] Jul, [facility] [place] [id number] [place] [address] [id number] Jul, [facility] [place] [id number] [place] [address] [id number] Jun, [facility] [place] [id number] [place] [address] [id number] Jun, Hair loss L65.9 and Disorder of the skin and subcutaneous tissue, unspecified L98.9 [facility] [place] [id number], [place] [id number] May, Type 2 diabetes mellitus with other diabetic kidney complication E11.29 ; Type 2 diabetes mellitus with hyperglycemia E11.65 ; Morbid obesity due to excess calories E66.01 and Essential hypertension I10 [facility] [place] [id number], [place] [id number] May, Diabetes type 2, uncontrolled E11.65 ; Encounter for immunization Z23 and Morbid obesity due to excess calories E66.01 [facility] [place] [id number], [place] [id number] May, [facility] [id number] [place] [address] [id number] 3621 Apr, [facility] [place] [id number], [place] [id number] Apr, Hyperglycemia R73.9 [facility] [place] [id number] [place] [address] [id number] Apr, [address] [id number] [id number] Apr, Depression F32.9 ; Encounter for immunization Z23 ; Hyperglycemia R73.9 and Anemia in other chronic diseases classified elsewhere D63.8 [facility] [place] [address] [id number] [id number] Mar, [id number] [place] [address] [id number] Feb, Positive occult stool blood test 792.1 [id number] [place] [address] [id number] Feb, Depression 311 ; Other chronic pain 338.29 and Diabetes with renal manifestations, type II or unspecified type, not stated as uncontrolled 250.40 [facility] [address]00565100[place] [id number]- 4765 Feb, Occult blood in stools 792.[address] [place] [address] [id number] Feb, Anemia 285.9 ; Occult blood positive stool 792.1 ; Unspecified essential hypertension 401.9 and Other chronic pain 338.29 [id number] [place] [address] [id number] Feb, [address] [place] [address] [id number] Feb, Anemia 285.9 [address]00565100[place] [id number] Feb, [address] [place] [address] [id number] Feb, [address] [id number] [id number] Feb, Diabetes with renal manifestations, type II or unspecified type, not stated as uncontrolled 250.40 ; Other chronic pain 338.29 ; Unspecified essential hypertension 401.9 ; Anemia 285.9 and Depression 311 [address]00565100[place], [place] [id number] Jan, [address] [id number] 707601919 Jan, Anemia 285.9 and Follow up V67.9 [facility] [place] [address] [id number] [place] [id number] Jan, [facility] [place] [address] [id number], [place] [id number] Jan, [facility] [place] [address] [id number], [place] [id number] Jan, [facility] [place] [address] [id number], [place] 758282783 Dec, [facility] [place] [facility] [address]00565100[place], [place] [address]- 9460 Oct, [facility] [place] [facility] [address]00565100[place], [place] [address]- 5446 Oct, [facility] [place] [facility] [address]00565100[place], [place] [address]- 5290 Sep, [facility] [place] [id number], [place] [id number] Sep, [facility] [place] [facility] [address]00565100[place], [place]17[place]- 7476 Sep, [facility] [place] [address] [id number], [place] [id number] Aug, [facility] [place] [facility] [address]00565100[place], [place] [address]- 6107 Aug, [facility] [place] [facility] [address]00565100[place], [place] [address]- 1106 Aug, [facility] [place] [address] [id number], [place] 233337776 Aug, [facility] [place] [facility] [address]00565100[place], [place] [address]- 7066 Aug, [facility] [place] [facility] [address]00565100[place], [place] [address]- 4288 Aug, [facility] [place] [address] [id number], [place] [id number] Aug, [facility] [place] [facility] [address] [id number] [place] [address]- 0445 Aug, [facility] [place] [address] [id number] [place] [id number] Jul, [facility] [place] [facility] [address] [facility] [id number] [place] [address]- 8750 Jul, [facility] [place] [facility] [address] [facility] [id number] [place] [address]- 3608 Jul, [facility] [place] [address] [id number] [place] [id number] Jul, [facility] [place] [facility] [address] [facility] [id number] [place] [address]- 0970 Jul, [facility] [place] [address] [facility] [id number] [place] [id number] Jul, [facility] [place] [facility] [address] [facility] [id number], [place] [address]- 9597 Jul, [facility] [place] [address] [id number], [place] [id number] Jun, [facility] [place] [address] [id number] [place] [id number] Jun, [facility] [place] [facility] [address] [id number], [place] [address]- 4422 Jun, [facility] [place] [facility] [address] [facility] [id number], [place] [address]- 5897 Jun, [facility] [place] [address] [facility] [id number], [place] 985288426 Jun, [facility] [place] [facility] [address] [facility] [id number], [place] [address]- 9754 Jun, [facility] [place] [address] [facility] [id number], [place] [id number] May, [facility] [place] [facility] [address] [facility] [id number] [place] [address]- 2920 May, [facility] [place] [facility] [address] [facility] [id number], [place] [address]- 0789 May, [facility] [place] [address] [id number] [place] [id number] Apr, [facility] [place] [facility] [address] [facility] [id number], [place] [address]- 6055 Apr, [facility] [place] [address] [id number] [place] [id number] Apr, [facility] [place] [address] [id number], [place] [id number] Apr, [facility] [place] [facility] [address] [facility] [id number], [place] [address]- 1438 Apr, [facility] [place] [facility] [address] [facility] [id number], [place] [address]- 3119 Apr, [facility] [place] [address] [facility] [id number], [place] [id number] Mar, [facility] [place] [facility] [address]00565100[place], [place] [address]- 1016 Mar, [facility] [place] [address] [facility] [id number], [place] 904112321 Mar, [facility] [place] [facility] [address] [facility] [id number], [place] [address]- 7867 Mar, [facility] [place] [address] [facility] [id number], [place] [id number] 16 Mar, 2014 [facility] [place] [facility] [address] [facility] [id number], [place] [address]- 4814 16 Mar, 2014 [facility] [place] [address] [facility] [id number], [place] [id number] Mar, [facility] [place] [facility] [address] [facility] [id number], [place] [address]- 0274 05 Mar, 2014 [facility] [place] [address] [facility] [id number], [place] 535415311 Mar, [facility] [place] [facility] [address] [facility] [id number], [place] [address]- 8725 Mar, [facility] [place] [address] [id number] [place] [id number] Feb, [facility] [place] [facility] [address] [id number] [place] [address]- 9946 Feb, [facility] [place] [address] [id number] [place] [id number] Jan, [facility] [place] [facility] [address] [facility] [id number] [place] [address]- 6296 Jan, [facility] [place] [address] [id number] [place] [id number] Jan, [facility] [place] [facility] [address] [id number] [place] [address]- 4113 Jan, [facility] [place] [address] [facility] [id number] [place] [id number] Jan, [facility] [place] [facility] [address] [facility] [id number] [place] [address]- 1781 Jan, [facility] [place] [facility] [address] [facility] [id number] [place] [address]- 0466 Dec, [facility] [place] [facility] [address] [facility] [id number] [place] [address]- 1737 Dec, [facility] [place] [address] [facility] [id number] [place] [id number] November, [facility] [place] [facility] [address] [facility] [id number] [place] [address]- 8279 November, [facility] [place] [address] [facility] [id number] [place] [id number] November, [facility] [place] [facility] [address] [id number] [place] [address]- 0756 November, [facility] [place] [address] [facility] [id number] [place] [id number] Oct, [facility] [place] [facility] [address] [id number] [place] [address]- 1916 Oct, [facility] [place] [facility] [address] [facility] [id number], [place] [address]- 7911 Oct, [facility] [place] [facility] [address] [facility] [id number], [place] [address]- 4596 Oct, [facility] [place] [facility] [address] [facility] [id number] [place] [address] 2546 Oct, [facility] [place] [facility] [address] [facility] [id number] [place] [address]- 2546 Oct, [facility] [place] [address] [facility] [id number] [place] 962304465 Sep, [facility] [place] [address] [facility] [id number] [place] [id number] Sep, [facility] [place] [facility] [address] [facility] [id number] [place] [address]- 3956 Sep, [facility] [place] [facility] [address] [id number], [place] [address]- 2546 Sep, [facility] [place] [id number], [place] 127376845 Sep, [facility] [place] [facility] [address]00565100[place], [place] [address]- 6936 Sep, [facility] [place] [facility] [address]00565100[place], [place] [address]- 0226 Aug, [facility] [place] [facility] [address] [id number], [place] [address]- 6026 Aug, [facility] [place] [address] [id number], [place] [id number] Aug, [facility] [place] [address] [id number], [place] [id number] Aug, [facility] [place] [facility] [address] [facility] [id number], [place] [address]- 2546 Aug, [facility] [place] [address] [id number], [place] 527791782 Aug, [facility] [place] [facility] [address] [id number], [place] [address]- 2546 Aug, [facility] [place] [id number], [place] 529680950 Aug, [facility] [place] [facility] [address] [facility] [id number], [place] [address]- 2546 Aug, [facility] [place] [address] [facility] [id number], [place] 102414281 Aug, [facility] [place] [facility] [address] [facility] [id number], [place] [address]- 2546 Aug, [facility] [place] [address] [facility] [id number], [place] [id number] Aug, [facility] [place] [facility] [address] [facility] [id number], [place] [address]- 6056 Aug, [facility] [place] [facility] [address] [id number], [place] [address]- 1276 Jul, [facility] [place] [address] [id number], [place] 922835806 Jun, [facility] [place] [facility] [address]00565100[place], [place] [address]- 1876 Jun, [facility] [place] [facility] [address] [id number], [place] [address]- 5916 Jun, [facility] [place] [facility] [address] [id number], [place] [address]- 3529 Jun, [facility] [place] [address] [id number], [place] 683660109 Jun, [facility] [place] [facility] [address]00565100[place], [place] [address]- 5016 Jun, [facility] [place] [facility] [address] [facility] [id number], [place] [address]- 7266 Jun, [facility] [place] [address] [facility] [id number], [place] 639851912 Jun, [facility] [place] [facility] [address] [facility] [id number], [place] [address]- 8826 Jun, [facility] [place] [facility] [address]00565100[place], [place] [address]- 1056 May, [facility] [place] [address] [facility] [id number], [place] 917053574 May, [facility] [place] [facility] [address] [facility] [id number] [place] [address]- 4896 May, [facility] [place] [facility] [address] [facility] [id number] [place] [address]- 9090 May, [facility] [place] [facility] [address] [facility] [id number] [place] [address]- 7472 May, [facility] [place] [facility] [address] [facility] [id number] [place] [address]- 5452 May, [facility] [place] [address] [facility] [id number], [place] 661182452 May, [facility] [place] [facility] [address] [id number], [place] [address]- 7999 May, [facility] [place] [address] [id number], [place] 846308764 May, [facility] [address] [facility] [id number], [place] [address]- 9861 May, [facility] [place] [address] [id number], [place] 451919710 Apr, [facility] [place] [facility] [address] [id number], [place] [address]- 8026 Apr, [facility] [place] [facility] [address]00565100[place], [place] [address]- 0312 Apr, [facility] [place] [address] [facility] [id number], [place] 527289930 Apr, [facility] [place] [facility] [address] [facility] [id number], [place] [address]- 7215 Apr, [facility] [place] [facility] [address] [facility] [id number], [place] [address]- 7375 Apr, [facility] [place] [address] [facility] [id number], [place] 555857686 Apr, [facility] [place] [facility] [address]00565100[place], [place] [address]- 3826 Apr, [facility] [place] [facility] [address] [facility] [id number], [place] [address]- 3741 Apr, [facility] [place] [facility] [address] [facility] [id number], [place] [address]- 7642 Apr, [facility] [place] [address] [id number], [place] 294417900 Apr, [facility] [place] [facility] [address] [facility] [id number], [place] [address]- 3558 Apr, [facility] [place] [address] [id number], [place] 877485533 Apr, [facility] [place] [facility] [address] [facility] [id number], [place] [address]- 0136 Apr, [facility] [place] [address] [id number], [place] 268701153 Apr, [facility] [place] [facility] [address] [facility] [id number], [place] [address]- 7939 Apr, [facility] [place] [facility] [address] [facility] [id number], [place] [address]- 9372 Apr, [facility] [place] [facility] [address] [facility] [id number], [place] [address]- 9827 Apr, [facility] [place] [address] [id number], [place] 182616917 Apr, [facility] [place] [facility] [address] [facility] [id number], [place] [address]- 1800 Mar, [facility] [place] [facility] [address] [facility] [id number], [place] [address]- 3140 Mar, [facility] [place] [address] [id number], [place] 245991298 Mar, [facility] [place] [address] [id number], [place] 467407006 Mar, [facility] [place] [address] [id number], [place] 108723891 16 Mar, 2013 [facility] [place] [address] [id number] [place] 820229547 Feb, [facility] [place] [address] [id number] [place] 179644800 Feb, [facility] [place] [address] [id number] [place] 392401162 Feb, [facility] [address] [facility] [id number] [place] 40980116- 9712 Feb, [facility] [place] [address] [id number] [place] 682420289 Feb, [facility] [place] [address] [id number] [place] 443614571 Feb, [facility] [place] [address] [id number] [place] 964737904 Feb, [facility] [place] [address] [id number] [place] 454411850 Feb, [facility] [place] [address] [id number] [place] 221311104 Feb, [facility] [place] [address] [id number] [place] 185459608 Jan, [facility] [place] [address] [id number] [place] 588868567 Jan, [facility] [place] [address] [id number] [place] 236587486 Jan, [facility] [place] [address] [id number] [place] 594162353 Jan, [facility] [place] [address] [id number] [place] 986877408 Jan, [facility] [address] [facility] [id number] [place] 26931218- 2651 Jan, [facility] [place] [address] [id number] [place] 567995302 Jan, [facility] [place] [address] [id number] [place] 705270425 Jan, [facility] [place] [address] [id number] [place] 537017807 Dec, [facility] [place] [address] [id number] [place] 219661779 November, [facility] [place] [address] [id number] [place] 026062705 November, [facility] [place] [address] [id number] [place] 583589485 November, [facility] [place] [address] [id number] [place] 548799676 November, [facility] [place] [address] [id number] [place] 696681399 November, [facility] [place] [address] [id number] [place] 893572688 November, [facility] [place] [address] [id number] [place] 861420404 Jul, [facility] [place] [address] [id number] [place] 039832497 Jul, [facility] [place] [address] [id number] [place] [id number] Jul, [facility] [place] [address] [id number] [place] 412196323 Jun, [facility] [place] [facility] [address] [facility] [id number], [place] [address]- 8797 Jun, [facility] [place] [address] [id number] [place] [id number] May, [facility] [place] [facility] [address] [facility] [id number], [place] [address]- 6291 May, [facility] [place] [address] [id number], [place] 295181338 May, [facility] [place] [facility] [address] [facility] [id number], [place] [address]- 3576 May, [facility] [place] [address] [id number] [place] [id number] May, [facility] [place] [facility] [address] [facility] [id number], [place] [address]- 7061 May, [facility] [place] [address] [id number] [place] 573180036 Apr, [facility] [place] [facility] [address] [facility] [id number], [place] [address]- 8517 Apr, [facility] [address] [facility] [id number], [place] 65758039- 0955 Apr, [facility] [place] [address] [id number], [place] 412706550 Apr, [facility] [place] [address] [id number], [place] 077697095 Apr, [facility] [address] [facility] [id number], [place] [address] Apr, [facility] [address] [facility] [id number], [place] [address] Apr, [facility] [address] [id number][place] [id number] Apr, [facility] [address] [facility] [id number], [place] [address] Apr, [facility] [address] [id number], [place] [id number] Apr, [facility] [address] [id number], [place] [id number] Apr, [facility] [address] [id number][place] [id number] Mar, [facility] [address] [id number][place] [id number] Feb, [facility] [address] [id number][place] [id number] Jan, [facility] [address] [id number], [place] [id number] Dec, [facility] [address] [id number][place] [id number] Dec, [facility] [address] [id number], [place] [id number] Dec, [facility] [address] [id number], [place] [id number] Dec, [facility] [address] [id number], [place] [id number] Dec, [facility] [address] [id number] [place] [id number] November, [facility] [address] [id number] [place] [id number] November, [facility] [address] [id number] [place] [id number] November, [facility] [id number] [place] [id number] November, [facility] [address] [id number] [place] [id number] November, [facility] [address] [id number] [place] [id number] November, [facility] [address] [id number] [place] [id number] Oct, [facility] [address] [id number] [place] [id number] Oct, [facility] [address] [id number] [place] [id number] Oct, [facility] [address] [id number] [place] [id number] Oct, [facility] [address] [id number] [place] [id number] Oct, [facility] [address] [id number] [place] [id number] Oct, [facility] [address] [id number] [place] [id number] Sep, [facility] [address] [id number] [place] [id number] Aug, [facility] [address] [id number] [place] [id number] Aug, [facility] [address] [id number] [place] [id number] Jul, [facility] [id number] [id number]- [address] Jun, [facility] [id number], [place] [address] Jun, [facility] [place] [facility] [address] [id number] [place] [address]- [address] Jun, [facility] [place] [facility] [address] [id number] [place] [address] 2012 Jun, [facility] [place] [facility] [address] [id number] [place] [address] May, [facility] [place] [facility] [address] [id number] [place] [address]- [address] May, [facility] [place] [facility] [address] [id number] [place] [address] Apr, [facility] [place] [facility] [address] [id number] [place] [address] Apr, [facility] [place] [facility] [address] [id number] [place] [address] Apr, [facility] [place] [facility] [address] [id number] [place] [address] Feb, [facility] [place] [facility] [address] [facility] [id number] [place] [address] Aug, [facility] [place] [facility] [address] [id number] [place] [address]- [address] Jul, [facility] [place] [facility] [address] [id number] [place] [address] Jun, [facility] [place] [facility] [address] [id number] [place] [address] May, [facility] [place] [facility] [address] [id number] [place] [address]- [address] May, [facility] [place] [facility] [address] [id number] [place] [address]- [address]702 May, [facility] [place] [facility] [address] [facility] [id number] [place] [address]- [address] May, [facility] [place] [facility] [id number], [place] [address] May, [facility] [id number], [place] [address] Aug, [facility] [id number], [place] [address] Jun, [facility] [id number] [place] [address] Jun, [facility] [id number], [place] [address] Jun, [facility] [id number] [place] [address]- 46[address] May, [facility] [id number] [place] [address]- 9946 Apr, [facility] [address] [place] [id number] [place] [address]- [address] Apr, [facility] [id number] [address] Apr, [facility] [id number] [address] Jan, [facility] [id number] [address] Oct, [facility] [address] [id number], [place] [id number] May, [facility] [id number], [place] [address] May, IMMUNIZATIONS No Known Immunizations SOCIAL HISTORY Never Assessed REASON FOR VISIT Medication refill request PLAN OF CARE VITAL SIGNS [...] Dialysis Ruthy Reveles 2012 -Dr. Simon now [facility] Medical History Colonoscopy (polyps 2 ) [...]
--- OUTSIDE RECORDS SUMMARY | 2018-02-13 13:52 | XMS REPORT ---
Author Author CHELSY VILLAFANA [facility] Address [address] [place] [address] Care Team Providers Care Accounts Executive Name Role Phone CHELSY VILLAFANA Unavailable PROBLEMS Type Condition ICD9-CM Code IXC89-AI Code Onset Dates Condition Status SNOMED Code Problem Chronic kidney disease, stage 4 (severe) N18.4 Active 263430630 Problem Psoriasis of scalp L40.9 Active 926889593 Problem Type 2 diabetes mellitus with hyperglycemia E11.65 Active 335967823072396 Problem Fibromyalgia M79.7 Active 448788376 Problem History of DVT (deep vein thrombosis) Z86.718 Active 734403376 Problem Carpal tunnel syndrome, bilateral G56.03 Active [id number] Problem Type 2 diabetes mellitus with other diabetic kidney complication E11.29 Active 581550847 Problem Anemia in other chronic diseases classified elsewhere D63.8 Active 155864723 Problem FDC 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 Active 009331675 Problem Paresthesia of right upper extremity R20.2 Active 79204982 Problem Bilateral lower extremity edema R60.0 Active 865516975 Problem Supplemental oxygen dependent Z99.81 Active 825455619556 Problem Sleep apnea in adult G47.33 Active 39951612 Problem Chronic pain syndrome G89.4 Active 216068663 Problem 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 Active 393001322 Problem Essential hypertension I10 Active 81691699 Problem Gastroesophageal reflux disease without esophagitis K21.9 Active 800569220 Problem Chronic obstructive pulmonary disease, unspecified COPD type J44.9 Active 62276099 Problem 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 Active 430013630842764 Problem Primary insomnia F51.01 Active 0408584 Problem Oxygen desaturation during sleep G47.34 Active 619540260 Problem Right carpal tunnel syndrome G56.01 Active 990054977165472 Problem Diabetic polyneuropathy associated with type 2 diabetes mellitus E11.42 Active 00935807 Problem Depression, unspecified depression type F32.9 Active 54579235 ALLERGIES No Information ENCOUNTERS Encounter Location Date Diagnosis [facility] [id number] [place] [address] 14105- 3865 Jan, Essential hypertension I10 [facility] [id number] [place] [address] 04144- 4956 Jan, Chronic obstructive pulmonary disease, unspecified COPD type J44.9 [facility] [id number] [place] [address] 55355- 5592 Jan, [facility] [id number] [place] [address] 82216- 6260 Jan, [facility] [id number] [place] [address] 64781- 7811 Jan, Type 2 diabetes mellitus with other diabetic kidney complication E11.29 ; Anemia in other chronic diseases classified elsewhere D63.8 ; Chronic obstructive pulmonary disease, unspecified COPD type J44.9 and BMI 60.0-69.9, adult Z68.44 [facility] [id number] [place] [address] 98845- 4829 Jan, [facility] [id number] [place] [address] 30763- 4109 Jan, [id number] [place] [address] [id number] Jan, [id number] [place] [address] [id number] Dec, [facility] [id number] [place] [address] [id number] Dec, [id number] [place] [address] [id number] Dec, Essential hypertension I10 ; Type 2 diabetes mellitus with other diabetic kidney complication E11.29 ; Depression, unspecified depression type F32.9 ; Supplemental oxygen dependent Z99.81 ; Chronic pain syndrome G89.4 ; Fibromyalgia M79.7 ; Carpal tunnel syndrome, bilateral G56.03 and Chronic kidney disease, stage 4 (severe) N18.4 [facility] [address], [place] [address] 5412 Dec, Essential hypertension I10 [facility] [id number] [place] [address] 42559- 9043 November, Type 2 diabetes mellitus with other diabetic kidney complication E11.29 [facility] [address] [place] [address] 88575- 8710 November, Chronic pain syndrome G89.4 [facility] [address] [place] [address] 60236- 0432 November, [facility] [id number] [place] [address] 57151- 6078 November, [facility] [id number] [place] [address] 87869- 2133 November, [facility] [id number] [place] [address] 09070- 7642 Oct, Type 2 diabetes mellitus with other diabetic kidney complication E11.29 [facility] [address] [place] [address] 40376- 4064 Oct, Primary insomnia F51.01 [facility] [id number] [place] [id number] Oct, Bilateral lower extremity edema R60.0 [facility] [address], [place] [address]- 8412 Oct, [facility] [address] [place] [address] 74419- 3225 Sep, Type 2 diabetes mellitus with other diabetic kidney complication E11.29 and Chronic obstructive pulmonary disease, unspecified COPD type J44.9 [facility] [address] [place] [address] 02614- 0505 Aug, Type 2 diabetes mellitus with other diabetic kidney complication E11.29 [facility] [address] [address]- 7623 Aug, Gastroesophageal reflux disease without esophagitis K21.9 ; FDC current use of anticoagulant Z79.01 ; Chronic pain syndrome G89.4 ; Essential hypertension I10 and Type 2 diabetes mellitus with other diabetic kidney complication E11.29 [address] [id number] [place] [address] 52242- 8246 08 Aug, 2017 Chronic pain syndrome G89.4 [place] [facility] [id number] [place] [address] 33622- 1478 Aug, Type 2 diabetes mellitus with other diabetic kidney complication E11.29 [place] [facility] [id number] [place] [address] 33260- 9799 Jul, Diabetic polyneuropathy associated with type 2 diabetes mellitus E11.42 [place] [id number] [place] [address] 68996- 5532 Jul, Primary insomnia F51.01 [facility] [facility] [id number] [place] [address] 38343- 7949 Jul, [place] [id number] [place] [address] 59881- 0220 Jul, Type 2 diabetes mellitus with other diabetic kidney complication E11.29 and Chronic obstructive pulmonary disease, unspecified COPD type J44.9 [facility] [facility] [id number] [place] [address] 86107- 1969 Jul, Type 2 diabetes mellitus with other diabetic kidney complication E11.29 [place] [facility] [id number] [place] [address] 08723- 0776 Jun, Type 2 diabetes mellitus with other diabetic kidney complication E11.29 [place] [facility] [id number] [place] [address] 79500- 3696 Jun, [place] [id number] [place] [address] 13514- 9945 Jun, Chronic obstructive pulmonary disease, unspecified COPD type J44.9 [place] [id number] [place] [address] 31245- 5179 May, Type 2 diabetes mellitus with other diabetic kidney complication E11.29 [place] [address], [place] [address]- 4367 May, FDC current use of anticoagulant Z79.01 and Essential hypertension I10 [facility] [id number] [place] [address] 04335- 2140 May, Anemia in other chronic diseases classified elsewhere D63.8 ; Chronic obstructive pulmonary disease, unspecified COPD type J44.9 ; Oxygen desaturation during sleep G47.34 ; Sleep apnea in adult G47.33 and Supplemental oxygen dependent Z99.81 [place] [id number] [place] [address] 58610- 4673 May, Type 2 diabetes mellitus with other diabetic kidney complication E11.29 ; Essential hypertension I10 ; Chronic pain syndrome G89.4 ; BMI 40.0-44.9, adult Z68.41 ; Gastroesophageal reflux disease without esophagitis K21.9 ; FDC current use of anticoagulant Z79.01 ; FDC 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 ; Diabetic polyneuropathy associated with type 2 diabetes mellitus E11.42 ; Edema of both legs R60.0 and Supplemental oxygen dependent Z99.81 [place] [id number] [place] [address] 84843- 8887 May, [place] [id number] [place] [address] 67525- 6503 May, Essential hypertension I10 and Gastroesophageal reflux disease without esophagitis K21.9 [place] [facility] [id number] [place] [address] 05042- 0175 May, [place] [id number] [place] [address] 50949- 7709 May, Type 2 diabetes mellitus with other diabetic kidney complication E11.29 and 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 [place] [id number] [place] [address] 66805- 9340 Apr, Chronic pain syndrome G89.4 and Essential hypertension I10 [facility] [facility] [id number] [place] [address] 37684- 9213 Apr, Type 2 diabetes mellitus with other diabetic kidney complication E11.29 [facility] [facility] [id number] [place] [address] 55770- 5755 Apr, Type 2 diabetes mellitus with other diabetic kidney complication E11.29 [place] [id number] [place] [address] 01542- 5344 Apr, Essential hypertension I10 [facility] [id number] [place] [address] 72014- 6479 Apr, Gastroesophageal reflux disease without esophagitis K21.9 [place] [id number] [place] [address] 50876- 1804 Apr, Type 2 diabetes mellitus with other diabetic kidney complication E11.29 [facility] [id number] [place] [address] 35698- 6022 Apr, Type 2 diabetes mellitus with other diabetic kidney complication E11.29 and 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 [place] [id number] [place] [address] 01313- 2500 Mar, Encounter for immunization Z23 and Preoperative examination Z01.818 [place] [id number] [place] [address] 00306- 7440 Mar, [place] [id number] [place] [address] 58926- 0469 Mar, Type 2 diabetes mellitus with other diabetic kidney complication E11.29 [place] [address] [place] [address] 81072- 8540 Mar, Type 2 diabetes mellitus with other diabetic kidney complication E11.29 [facility] [facility] [id number] [place] [address] 99964- 1592 Mar, Gastroesophageal reflux disease without esophagitis K21.9 [place] [id number] [place] [address] 81712- 3028 Mar, Essential hypertension I10 [place] [address], [place] [address] 2546 Feb, 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 [facility] [address] [facility] [id number] [place] [address] 61720 2546 Feb, Type 2 diabetes mellitus with other diabetic kidney complication E11.29 [facility] [address], [place] [address] 2546 Feb, Type 2 diabetes mellitus with other diabetic kidney complication E11.29 [facility] [id number] [place] [address] 94795 2546 Feb, Type 2 diabetes mellitus with other diabetic kidney complication E11.29 [facility] [address] [place] [address] 47119 2546 Feb, Gastroesophageal reflux disease without esophagitis K21.9 [facility] [address] [place] [address] 71824 2546 Feb, Type 2 diabetes mellitus with other diabetic kidney complication E11.29 [facility] [address], [place] [address] 2546 Feb, 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 [facility] [address], [place] [address] 2546 Jan, Type 2 diabetes mellitus with other diabetic kidney complication E11.29 [facility] [address], [place] [address] 2546 Jan, Type 2 diabetes mellitus with other diabetic kidney complication E11.29 [facility] [address], [place] [address] 2546 Jan, Chronic pain syndrome G89.4 [facility] [address], [place] [address] 2546 Jan, [facility] [address], [place] [address] 2546 Jan, [facility] [address], [place] [address]- 0100 Jan, [facility] [address], [place] [address]- 1234 Jan, [facility] [address], [place] [address]- 5496 Jan, Primary insomnia F51.01 ; Type 2 diabetes mellitus with other diabetic kidney complication E11.29 ; Chronic pain syndrome G89.4 and Essential hypertension I10 [facility] [address], [place] [address]- 3260 Jan, Primary insomnia F51.01 [facility] [id number] [place] [address] 98813- 7730 Jan, Type 2 diabetes mellitus with other diabetic kidney complication E11.29 [place] [address] [address]- 5315 Jan, [facility] [address], [place] [address]- 7959 Jan, Chronic obstructive pulmonary disease, unspecified COPD type J44.9 [place] [address] [place] [address] 12509- 1986 Jan, Essential hypertension I10 ; Type 2 [...] diabetes mellitus E11.42 [facility] [address], [place] [address]- 7968 Jan, Gastroesophageal reflux disease without esophagitis K21.9 [facility] [address], [place] [address]- 7979 Dec, [facility] [address] [place] [address]- 1794 Dec, [facility] [address], [place] [address]- 7877 Dec, 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 ; Chronic pain syndrome G89.4 and Essential hypertension I10 [facility] [address] [place] [address] 68227- 2486 Dec, [facility] [id number] [place] [address] 99571- 8502 Dec, Type 2 diabetes mellitus with other diabetic kidney complication E11.29 [facility] [id number] [place] [address] 29028- 0227 Dec, [facility] [id number] [place] [address] 67831- 3811 Dec, Gastroesophageal reflux disease without esophagitis K21.9 [facility] [id number] [place] [address] 10216- 5196 November, Type 2 diabetes mellitus with other diabetic kidney complication E11.29 [facility] [address] [place] [address]- 5308 November, [facility] [id number] [place] [address] 52543- 9589 November, Type 2 diabetes mellitus with other diabetic kidney complication E11.29 [facility] [address], [place] [address]- 7028 November, [facility] [address] [place] [address]- 4073 November, Type 2 diabetes mellitus with other diabetic kidney complication E11.29 [facility] [address], [place] [address]- 5670 November, [facility] [address], [place] [address]- 9435 Oct, Essential hypertension I10 [facility] [id number] [place] [address] 54084- 4209 Oct, Psoriasis of scalp L40.9 [facility] [address], [place] [address]- 1763 Oct, Essential hypertension I10 and Chronic pain syndrome G89.4 [facility] [address], [place] [address]- 8596 Oct, [place] [id number] [place] [address] 62376- 1430 Sep, Type 2 diabetes mellitus with other diabetic kidney complication E11.29 [facility] [facility] [address] [place] [address] 32501- 3576 Sep, [facility] [id number] [place] [address] 17694- 6093 Sep, Type 2 diabetes mellitus with other diabetic kidney complication E11.29 [place] [id number] [place] [address] 97423- 1565 Sep, Type 2 diabetes mellitus with other diabetic kidney complication E11.29 [facility] [place] [address], [place] [address]- 5903 Sep, Type 2 diabetes mellitus with other diabetic kidney complication E11.29 ; Chronic kidney disease, stage 4 (severe) N18.4 ; Chronic obstructive pulmonary disease, unspecified COPD type J44.9 ; Iron deficiency anemia due to chronic blood loss D50.0 ; FDC current use of anticoagulant Z79.01 ; Gastroesophageal reflux disease without esophagitis K21.9 ; Essential hypertension I10 ; Primary insomnia F51.01 ; Depression, unspecified depression type F32.9 ; Chronic pain syndrome G89.4 ; Wrist pain, right M25.531 ; Paresthesia of right upper extremity R20.2 and Psoriasis of scalp L40.9 [place] [address] [place] [address] 11961- 6967 Sep, [place] [address], [place] [address]- 9274 Aug, Essential hypertension I10 [place] [id number] [place] [address] 17062- 9967 Aug, History of DVT (deep vein thrombosis) Z86.718 [facility] [id number] [place] [address] 04076- 5658 14 Aug, 2016 [facility] [id number] [place] [address] 20706- 2606 Jul, [facility] [id number] [place] [address] 00858- 5654 Jul, [facility] [id number] [place] [address] 08436- 7907 Jul, FDC current use of anticoagulant Z79.01 ; Chronic pain syndrome G89.4 and Chronic kidney disease, stage 4 (severe) N18.4 [facility] [id number] [place] [address] 46565- 3639 Jul, [facility] [id number] [place] [address] 70867- 9609 Jul, [facility] [id number] [place] [address] 45310- 3397 Jul, [facility] [id number] [place] [address] 27523- 9542 Jul, [facility] [address] [place] [address] 11873- 3751 Jul, [facility] [id number] [place] [address] 59654- 9797 Jul, Type 2 diabetes mellitus with other diabetic kidney complication E11.29 [facility] [id number] [place] [address] 59756- 5056 Jul, History of DVT (deep vein thrombosis) Z86.718 [facility] [id number] [place] [address] 06384- 5929 Jun, [facility] [id number] [place] [address] 50733- 5920 19 Jun, 2016 History of DVT (deep vein thrombosis) Z86.718 [place] [id number] [place] [address] 95633- 9797 15 Jun, 2016 Post traumatic stress disorder (PTSD) F43.10 [place] [id number] [place] [address] 51427- 3367 07 Jun, 2016 Type 2 diabetes mellitus [...] pain M79.641 and Right wrist pain M25.531 [place] [id number] [place] [address] 91916- 6327 May, [place] [id number] [place] [address] 34341- 6149 May, [place] [id number] [place] [address] 31093- 3091 May, [facility] [id number] [place] [address] 84997- 6357 May, [facility] [id number] [place] [address] 27055- 3993 May, Anemia in other chronic diseases classified elsewhere D63.8 [place] [id number] [place] [address] 98216- 6120 May, [place] [address] [facility] [id number] [place] [address] 2546 10 Apr, 2016 [facility] [address] [place] [address] 2546 27 Mar, 2015 Dermatofibroma D23.9 [facility] [address] [facility] [id number] [place] [address] 2546 20 Mar, 2015 [facility] [address] [facility] [id number] [place] [address] 2543 14 Mar, 2016 Chronic pain syndrome G89.4 [facility] [address] [facility] [id number] [place] [address] 2546 09 Mar, 2015 [facility] [address] [facility] [id number] [place] [address] 2546 07 Mar, 2015 [facility] [address] [place] [address]- 1848 06 Mar, 2015 [facility] [address] [place] [address] 2542 30 Feb, 2016 [facility] [address] [place] [address] 2546 Feb, [facility] [address] [id number] [place] [address] 2547 Feb, [facility] [address] [place] [address] 2543 Feb, [facility] [address] [place] [id number] [place] [address] 2545 Feb, [facility] [address] [facility] [id number] [place] [address] 2540 15 Feb, 2016 [facility] [address] [facility] [id number] [place] [address]- 2543 Feb, 2016 Type 2 diabetes mellitus with [...] Renal failure, chronic, stage 4 (severe) N18.4 [facility] [id number] [place] [address] 55069- 1920 Feb, Skin tags, multiple acquired L91.[address] 28369- 9862 Jan, [facility] [id number] [place] [address] [id number] Jan, Dental examination Z01.20 [place] [id number] [place] [address] 47480- 1924 Jan, [address] 97684- 9653 Jan, Type 2 diabetes mellitus with other [...] Renal failure, chronic, stage 4 (severe) N18.4 [place] [id number] [place] [address] 86247- 0136 Dec, Diabetes type 2, uncontrolled E11.[address] [place] [address]- 3207 Dec, [facility] [address] [place] [address] 35112- 8083 Dec, Type 2 diabetes mellitus with other [...] F51.01 and Depression, unspecified depression type F32.9 [facility] [id number] [place] [address] [id number] Dec, Dental caries K02.9 [facility] [address] [id number] [place] [address] [id number] Dec, [facility] [address] [id number] Dec, Dental examination Z01.20 [facility] [id number] [place] [address] [id number] November, Dental examination Z01.20 and Dental caries K02.9 [facility] [address] [id number] [place] [address] [id number] Oct, [facility] [address] [id number] [place] [address] [id number] Oct, [facility] [address] [id number] [place] [address] [id number] Sep, [facility] [address] [id number] [place] [address] [id number] Sep, [facility] [address] [id number] [place] [address] [id number] Sep, [facility] [address] [id number] [place] [address] [id number] Sep, Other chronic pain 338.29 [facility] [id number] [place] [id number] 17 Aug, 2015 Diabetes type 2, uncontrolled E11.65 and Morbid obesity due to excess calories E66.01 [facility] [place] [id number] [place] [address] [id number] Aug, Hair loss L65.9 [facility] [place] [id number] [place] [address] [id number] Aug, [facility] [id number] [place] [address] [id number] Jul, [facility] [id number] [place] [address] [id number] Jul, [facility] [id number] [place] [address] [id number] Jun, [facility] [id number] [place] [address] [id number] Jun, Hair loss L65.9 and Disorder of the skin and subcutaneous tissue, unspecified L98.9 [facility] [id number] [place] [address] [id number] May, Type 2 diabetes mellitus with other diabetic kidney complication E11.29 ; Type 2 diabetes mellitus with hyperglycemia E11.65 ; Morbid obesity due to excess calories E66.01 and Essential hypertension I10 [facility] [id number] [place] [address] [id number] May, Diabetes type 2, uncontrolled E11.65 ; Encounter for immunization Z23 and Morbid obesity due to excess calories E66.01 [facility] [id number] [place] [id number] May, [facility] [address]00565[address], [place] [address] Apr, [facility] [id number] [place] [address] [id number] Apr, Hyperglycemia R73.9 [facility] [id number] [place] [id number] Apr, [facility] [id number] [place] [address] [id number] Apr, Depression F32.9 ; Encounter for immunization Z23 ; Hyperglycemia R73.9 and Anemia in other chronic diseases classified elsewhere D63.8 [facility] [address] [id number] [id number] Mar, [facility] [address]00565100[place] [id number] Feb, Positive occult stool blood test 792.1 [id number] [place] [address] [id number] Feb, Depression 311 ; Other chronic pain 338.29 and Diabetes with renal manifestations, type II or unspecified type, not stated as uncontrolled 250.40 [facility] [address]00565100[place] [address] [address]658 Feb, Occult blood in stools 792.[id number] [place] [address] [id number] Feb, Anemia 285.9 ; Occult blood positive stool 792.1 ; Unspecified essential hypertension 401.9 and Other chronic pain 338.29 [id number] [place] [address] [id number] Feb, [id number] [place] [address] [id number] Feb, Anemia 285.9 [address]00565100[place] [id number] Feb, [id number] [place] [address] [id number] Feb, [id number] [place] [address] [id number] Feb, Diabetes with renal manifestations, type II or unspecified type, not stated as uncontrolled 250.40 ; Other chronic pain 338.29 ; Unspecified essential hypertension 401.9 ; Anemia 285.9 and Depression 311 [id number] [place] [address] [id number] Jan, [id number] [place] [address] [id number] Jan, Anemia 285.9 and Follow up V67.9 [facility] [place] [address] [id number] [place] [id number] Jan, [facility] [place] [address] [id number] [place] [id number] Jan, [facility] [place] [address] [id number] [place] [id number] Jan, [facility] [place] [address] [id number] [place] [id number] Dec, [facility] [place] [facility] [address] [facility] [id number], [place] [address]- [address] Oct, [facility] [place] [facility] [address] [id number], [place] [address]- 2091 Oct, [facility] [place] [facility] [address]00565100[place], [place] [address]- 8480 Sep, [facility] [place] [address] [id number] [place] [id number] Sep, [facility] [place] [facility] [address]00565100[place], [place] [address]- 0244 Sep, [facility] [place] [address] [facility] [id number] [place] [id number] Aug, [facility] [place] [facility] [address]00565100[place], [place] [address]- 0527 Aug, [facility] [place] [facility] [address] [id number]- 1081 Aug, [facility] [place] [address] [id number] [place] [id number] Aug, [facility] [place] [facility] [address] [id number], [place] [address]- 6926 Aug, [facility] [place] [facility] [address]00565100[place], [place] 63779679- 8568 Aug, [facility] [place] [address] [facility] [id number] [place] [id number] Aug, [facility] [place] [facility] [address]00565100[place], [place]- 7964 Aug, [facility] [place] [address] [id number] [place] [id number] Jul, [facility] [place] [facility] [address] [facility] [id number] [place] [address]- 0690 Jul, [facility] [place] [facility] [address] [facility] [id number], [place] [address]- [address]65 Jul, [facility] [place] [address] [id number] [place] [id number] Jul, [facility] [place] [facility] [address] [id number], [place] [address]- 9932 Jul, [facility] [place] [address] [id number] [place] [id number] Jul, [facility] [place] [facility] [address] [facility] [id number], [place] [address]- 7772 Jul, [facility] [place] [address] [id number] [place] [id number] Jun, [facility] [place] [address] [id number] [place] [id number] Jun, [facility] [place] [facility] [address] [facility] [id number], [place] [address]- 0297 Jun, [facility] [place] [facility] [address] [facility] [id number], [place] [address]- 0098 Jun, [facility] [place] [address] [id number] [place] [id number] Jun, [facility] [place] [facility] [address] [facility] [id number], [place] [address]- 3387 Jun, [facility] [place] [address] [facility] [id number] [place] [id number] May, [facility] [place] [facility] [address] [facility] [id number], [place] [address]- 5845 May, [facility] [place] [facility] [address] [facility] [id number], [place] [address]- 4565 May, [facility] [place] [address] [id number] [place] [id number] Apr, [facility] [place] [facility] [address] [facility] [id number] [place] [address]- 6923 Apr, [facility] [place] [address] [id number] [place] [id number] Apr, [facility] [place] [address] [id number] [place] [id number] Apr, [facility] [place] [facility] [address] [facility] [id number] [place] [address]- 4592 Apr, [facility] [place] [facility] [address] [facility] [id number] [place] [address]- 4431 Apr, [facility] [place] [address] [facility] [id number] [place] [id number] Mar, [facility] [place] [facility] [address]00565100[place], [place] [address]- 5899 Mar, [facility] [place] [address] [facility] [id number] [place] [id number] Mar, [facility] [place] [facility] [address] [facility] [id number], [place] [address]- 2780 Mar, [facility] [place] [address] [facility] [id number] [place] [id number] Mar, [facility] [place] [facility] [address] [facility] [id number], [place] [address]- 1479 Mar, [facility] [place] [address] [facility] [id number] [place] [id number] Mar, [facility] [place] [facility] [address] [facility] [id number], [place] [address]- 9695 Mar, [facility] [place] [address] [id number] [place] [id number] Mar, [facility] [place] [facility] [address] [facility] [id number], [place] [address]- 6387 Mar, [facility] [place] [address] [facility] [id number] [place] [id number] Feb, [facility] [place] [facility] [address] [facility] [id number] [place] [address]- 3796 Feb, [facility] [place] [address] [id number] [place] [id number] Jan, [facility] [place] [facility] [address] [id number] [place] [address]- 8406 Jan, [facility] [place] [address] [id number] [place] [id number] Jan, [facility] [place] [facility] [address] [id number] [place] [address]- 8263 Jan, [facility] [place] [address] [id number] [place] 723932408 Jan, [facility] [place] [facility] [address] [id number] [place] [address]- 3746 Jan, [facility] [place] [facility] [address] [id number] [place] [address]- 9873 Dec, [facility] [place] [facility] [address] [facility] [id number], [place] [address]- 2223 Dec, [facility] [place] [address] [id number] [place] [id number] November, [facility] [place] [facility] [address] [id number], [place] [address]- 0357 November, [facility] [place] [address] [id number] [place] [id number] November, [facility] [place] [facility] [address] [id number] [place] [address]- 9400 November, [facility] [place] [address] [id number] [place] [id number] Oct, [facility] [place] [facility] [address] [id number] [place] [address]- 6569 Oct, [facility] [place] [facility] [address] [facility] [id number] [place] [address]- 6156 Oct, [facility] [place] [facility] [address] [id number], [place] [address]- 5524 Oct, [facility] [place] [facility] [address] [facility] [id number], [place] [address]- 2546 Oct, [facility] [place] [facility] [address] [facility] [id number], [place] [address]- 2546 Oct, [facility] [place] [address] [facility] [id number] [place] 642184598 Sep, [facility] [place] [address] [facility] [id number] [place] 036436574 Sep, [facility] [place] [facility] [address] [facility] [id number], [place] [address]- 0988 Sep, [facility] [place] [facility] [address] [facility] [id number], [place] [address]- 9829 Sep, [facility] [place] [address] [facility] [id number] [place] 423946268 Sep, [facility] [place] [facility] [address]00565100[place], [place] [address]- 3316 Sep, [facility] [place] [facility] [address]00565100[place], [place] [address]- 3216 Aug, [facility] [place] [facility] [address]00565100[place], [place] [address]- 1270 Aug, [facility] [place] [address] [id number] [place] [id number] Aug, [facility] [place] [address] [id number] [place] 509365977 Aug, [facility] [place] [facility] [address] [facility] [id number], [place] [address]- 8466 Aug, [facility] [place] [address] [facility] [id number] [place] [id number] Aug, [facility] [place] [facility] [address] [facility] [id number], [place] [address]- 2036 Aug, [facility] [place] [address] [facility] [id number] [place] [id number] Aug, [facility] [place] [facility] [address] [facility] [id number], [place] [address]- 2546 Aug, [facility] [place] [address] [facility] [id number] [place] 355691582 Aug, [facility] [place] [facility] [address] [facility] [id number], [place] [address]- 2546 Aug, [facility] [place] [address] [facility] [id number] [place] 915592781 Aug, [facility] [place] [facility] [address] [facility] [id number], [place] [address]- 2546 Aug, [facility] [place] [facility] [address] [facility] [id number], [place] [address]- 2546 Jul, [facility] [place] [address] [id number] [place] 082862833 Jun, [facility] [place] [facility] [address]00565100[place], [place] [address]- 3336 Jun, [facility] [place] [facility] [address]65100[place], [place] [address]- 7476 Jun, [facility] [place] [facility] [address]65100[place], [place] [address]- 3376 Jun, [facility] [place] [address] [id number] [place] 521796150 Jun, [facility] [place] [facility] [address] [id number], [place] [address]- 2546 Jun, [facility] [place] [facility] [address] [id number], [place] [address]- 2546 Jun, [facility] [place] [address] [facility] [id number] [place] 047670075 Jun, [facility] [place] [facility] [address] [facility] [id number], [place] [address]- 2546 Jun, [facility] [place] [facility] [address] [facility] [id number], [place] [address]- 2546 May, [facility] [place] [address] [id number] [place] 983796483 May, [facility] [address] [id number], [place] [address]- 5146 May, [facility] [place] [facility] [address] [id number], [place] [address]- 4511 May, [facility] [place] [facility] [address] [id number], [place] [address]- 3905 May, [facility] [place] [facility] [address] [id number], [place] [address]- 5045 May, [facility] [place] [address] [facility] [id number] [place] 905990643 May, [facility] [place] [facility] [address] [id number], [place] [address]- 0530 May, [facility] [place] [address] [id number] [place] [id number] May, [facility] [address] [id number], [place] [address]- 5995 May, [facility] [place] [address] [id number] [place] 757997378 Apr, [facility] [place] [facility] [address] [id number], [place] [address]- 9230 Apr, [facility] [place] [facility] [address] [facility] [id number], [place] [address]- 6172 Apr, [facility] [place] [address]005[address] 245985843 Apr, [facility] [place] [facility] [address] [id number], [place] [address]- 7773 Apr, [facility] [place] [facility] [address] [id number], [place] [address]- 4032 Apr, [facility] [place] [address] [facility] [id number] [place] 313368371 Apr, [facility] [place] [facility] [address] [facility] [id number], [place] [address]- 7908 Apr, [facility] [place] [facility] [address] [facility] [id number], [place] [address]- 7742 Apr, [facility] [address] [facility] [id number], [place] [address]- 5845 Apr, [facility] [place] [address] [id number] [place] 501434366 Apr, [facility] [address] [facility] [id number], [place] [address] 2546 Apr, [facility] [place] [address] [id number] [place] 712149885 Apr, [facility] [address] [facility] [id number], [place] [address]- 4958 Apr, [facility] [place] [address] [id number] [place] 016504068 Apr, [facility] [address]00565100[place], [place] [address]- 5485 Apr, [facility] [place] [facility] [address] [facility] [id number], [place] [address]- 3734 Apr, [facility] [address] [facility] [id number], [place] [address]- 9551 Apr, [facility] [place] [address] [id number] [place] 870743414 Apr, [facility] [place] [facility] [address] [id number], [place] [address]- 9726 Mar, [facility] [place] [facility] [address] [facility] [id number], [place] [address]- 1045 Mar, [facility] [place] [address] [id number] [place] 618060159 Mar, [facility] [place] [address] [id number] [place] 588940362 Mar, [facility] [place] [address] [id number] [place] 598472289 Mar, [facility] [place] [address] [id number] [place] 981249462 Feb, [facility] [place] [address] [id number] [place] 157597212 Feb, [facility] [place] [address] [id number] [place] 062754271 Feb, [facility] [address] [facility] [id number], [place] 39401016- 9877 Feb, [facility] [place] [address] [id number] [place] 764836754 Feb, [facility] [place] [address] [id number] [place] 510866500 Feb, [facility] [place] [address] [id number] [place] 55[place]2040 Feb, [facility] [place] [address] [id number] [place] 614346868 Feb, [facility] [place] [address] [id number] [place] 274135344 Feb, [facility] [place] [address] [id number] [place] 223699844 Jan, [facility] [place] [address] [id number] [place] 111587501 Jan, [facility] [place] [address] [id number] [place] 675305799 Jan, [facility] [place] [address] [id number] [place] 369333112 Jan, [facility] [place] [address] [id number] [place] 073737160 Jan, [facility] [address] [facility] [id number], [place] 87334733- 0275 Jan, [facility] [place] [address] [id number] [place] 574577582 Jan, [facility] [place] [address] [id number] [place] 938495405 Jan, [facility] [place] [address] [id number] [place] 053651442 Dec, [facility] [place] [address] [id number] [place] 420750677 November, [facility] [place] [address] [id number] [place] 548995272 November, [facility] [place] [address] [id number] [place] 752463334 November, [facility] [place] [address] [id number] [place] 160811641 November, [facility] [place] [address] [id number] [place] 196629477 November, [facility] [place] [address] [id number] [place] 337069310 November, [facility] [place] [address] [id number] [place] 767942851 Jul, [facility] [place] [address] [id number] [place] 390255303 Jul, [facility] [place] [address] [id number] [place] 599013372 Jul, [facility] [place] [address] [id number] [place] 297791965 Jun, [facility] [address] [facility] [id number], [place] [address]- 9744 Jun, [facility] [place] [address] [id number] [place] [id number] May, [facility] [address] [facility] [id number][place] [id number] May, [facility] [address] [id number] [place] [id number] May, [facility] [address] [facility] [id number], [place] [address] May, [facility] [address] [id number] [place] [id number] May, [facility] [place] [facility] [address] [facility] [id number], [place] [address] May, [facility] [address] [id number] [place] [id number] Apr, [facility] [address] [facility] [id number], [place] [address] Apr, [facility] [place] [facility] [address] [facility] [id number], [place] [address] Apr, [facility] [address] [id number] [place] [id number] Apr, [facility] [address] [id number] [place] [id number] Apr, [facility] [address] [facility] [id number], [place] [address] Apr, [facility] [address] [facility] [id number], [place] [address] Apr, [facility] [address] [id number] [place] [id number] Apr, [facility] [address] [facility] [id number], [place] [address] Apr, [facility] [address] [id number] [place] [id number] Apr, [facility] [address] [id number] [place] [id number] Apr, [facility] [address] [id number] [place] [id number] Mar, [facility] [address] [id number] [place] [id number] Feb, [facility] [address] [id number] [place] [id number] Jan, [facility] [address] [id number] [place] [id number] Dec, [facility] [address] [id number] [place] [id number] Dec, [facility] [address] [id number] [place] [id number] Dec, [facility] [address] [id number] [place] [id number] Dec, [facility] [address] [id number] [place] [id number] Dec, [facility] [address] [id number] [place] [id number] November, [facility] [address] [id number] [place] [id number] November, [facility] [address] [id number] [place] [id number] November, [facility] [address], [place] [address] November, [facility] [address] [id number] [place] [id number] November, [facility] [address] [id number] [place] [id number] November, [facility] [address] [id number] [place] [id number] Oct, [facility] [address] [id number] [place] [id number] Oct, [facility] [address] [id number] [place] [id number] Oct, [facility] [address] [id number] [place] [id number] Oct, [facility] [address] [id number] [place] [id number] Oct, [facility] [address] [id number] [place] [id number] Oct, [facility] [address] [id number] [place] [id number] Sep, [facility] [address] [id number] [place] [id number] Aug, [facility] [address] [id number] [place] [id number] Aug, [facility] [address] [id number] [place] [id number] Jul, [facility] [address] [id number] [place] [id number] Jun, [facility] [id number], [place] [address] Jun, [facility] [id number] [place] [address] Jun, [facility] [place] [facility] [address] [id number] [place] [address] 14 Jun, 2011 [facility] [place] [facility] [address] [id number] [place] [address] May, [facility] [place] [facility] [address] [id number] [place] [address] May, [facility] [place] [facility] [address] [id number] [place] [address] Apr, [facility] [place] [facility] [address] [id number] [place] [address] Apr, [facility] [place] [facility] [address] [id number] [place] [address] Apr, [facility] [place] [facility] [address] [facility] [id number] [place] [address] Feb, [facility] [place] [facility] [address] [id number] [place] [address] Aug, [facility] [place] [facility] [address] [facility] [id number] [place] [address] Jul, [facility] [place] [facility] [address] [facility] [id number] [place] [address] Jun, [facility] [place] [facility] [address] [id number] [place] [address] May, [facility] [place] [facility] [address] [id number] [place] [address] May, [facility] [place] [facility] [address] [id number] [place] [address]- [address] May, [facility] [place] [facility] [address] [facility] [id number] [place] [address] May, [facility] [place] [facility] [address] [facility] [id number] [place] [address] May, [facility] [place] [facility] [id number], [place] [address] 16 Aug, 2009 [facility] [id number] [address] Jun, [facility] [id number] [address]- [id number] Jun, [facility] [id number] [place] [phone] Jun, [facility] [address], [place] [address] May, [facility] [id number] [place] [phone] Apr, [facility] [id number] [place] [address] [phone] Apr, [facility] [id number] [place] [phone] Apr, [facility] [id number] [place] [phone] Jan, [facility] [address], [place] [phone] Oct, [facility] [address], [place] [address] May, [facility] [address], [place] [phone] May, IMMUNIZATIONS No Known Immunizations SOCIAL HISTORY [...] Dialysis Ruthy Reveles 2012 -Dr. Simon now [facility] Medical History Colonoscopy (polyps 2 ) [...]
[2018-02-13] MEDS ORDERED: NS IV 1000 ML 1,000 ML IV ONE (13:53)
[2018-02-13 14:04] LABS: ABG BASE EXCESS 14.9 MMOL/L (-2.5-2.5); ABG OXYGEN SATURATION 97 % (94-100); ABG PCO2 70 MMHG (35-45); ABG PH 7.38 (7.37-7.43); ABG PO2 86 MMHG (79-93); BASOPHILS # (AUTO) 0.1 10^3/uL (0.0-0.1); BASOPHILS % (AUTO) 0 % (0-10); EOSINOPHILS # (AUTO) 0.1 10^3/uL (0.0-0.3); EOSINOPHILS % (AUTO) 1 % (0-10); HEMATOCRIT 33 % (35-52); HEMOGLOBIN 9.4 G/DL (11.5-16.0); LYMPHOCYTES % (AUTO) 8 % (12-44); MEAN CORPUSCULAR HEMOGLOBIN 26 PG (25-34); MEAN CORPUSCULAR HGB CONC 29 G/DL (32-36); MEAN CORPUSCULAR VOLUME 91 FL (80-99); MEAN PLATELET VOLUME 12.3 FL (7.4-10.4); MONOCYTES # (AUTO) 3.4 X 10^3 (0.0-1.0); MONOCYTES % (AUTO) 13 % (0-12); NEUTROPHILS # (AUTO) 20.4 X 10^3 (1.8-7.8); NEUTROPHILS % (AUTO) 79 % (42-75); PLATELET COUNT 454 10^3/uL (130-400)
[2018-02-13 14:08] LABS: ALLENS TEST YES-POS; INSPIRED O2 15; PATIENT TEMP 97.8; VENTILATOR NO
[2018-02-13 14:20] LABS: INR 2.8 (0.8-1.4)
[2018-02-13 14:22] LABS: EOSINOPHILS % (MANUAL) 1 %; HYPOCHROMASIA SLIGHT; LYMPHOCYTES % (MANUAL) 6 %; MONOCYTES % (MANUAL) 11 %; NEUTROPHILS % (MANUAL) 82 %; POLYCHROMASIA SLIGHT
--- NOTE | 2018-02-13 14:23 | Diagnostic Imaging Report ---
INDICATION: Weakness COMPARISON: 02/02/18 FINDINGS: Single view of the chest demonstrates cardiac enlargement with slight central vascular congestion. Please note the lungs are difficult to evaluate due to patient body habitus. No large effusion is seen. There was no pneumothorax. IMPRESSION: Limited examination. Cardiac enlargement with slight central vascular congestion. Dictated by: Dictated on workstation # [id number]
[2018-02-13 14:26] LABS: ALBUMIN 3.1 GM/DL (3.2-4.5); BILIRUBIN,TOTAL 0.8 MG/DL (0.1-1.0); CALCIUM 10.5 MG/DL (8.5-10.1); CREATININE SERUM 4.1 MG/DL (0.60-1.30); POTASSIUM 4.4 MMOL/L (3.6-5.0)
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
[2018-02-13 14:56] LABS: CLARITY,URINE VERY CLOUDY; COLOR,URINE YELLOW; GLUCOSE, URINE (UA) NEGATIVE (NEGATIVE); KETONES,URINE 1+ (NEGATIVE); LEUKOCYTE ESTERASE ,URINE 3+ (NEGATIVE); NITRITE,URINE POSITIVE (NEGATIVE); PH,URINE 5 (5-9); PROTEIN,URINE 2+ (NEGATIVE); UROBILINOGEN,URINE 4 MG/DL (NORMAL)
[2018-02-13 15:51] LABS: BACTERIA,URINE LARGE /HPF
[2018-02-13 15:52] LABS: RBC,URINE RARE /HPF
[2018-02-13 15:56] LABS: BILIRUBIN,URINE 2+ (NEGATIVE)
[2018-02-13] MEDS ORDERED: cefTRIAXone INJECTION 1,000 MG in NS (IVPB) 50 ML IV ONE (16:15)
[2018-02-13] MEDS ORDERED: NOREPINEPHRINE 4 MG in NS (IVPB) 250 ML IV SCH (17:15)
[2018-02-13] MEDS ORDERED: D5W IV SOLUTION (EXCEL) 250 ML IV ONE (18:03)
[2018-02-13] MEDS ORDERED: NS IV 1000 ML 1,000 ML ONE (18:07)
[2018-02-13] MEDS ORDERED: RT-ALBUTEROL/IPRATROPIUM 3 ML (DUONEB) VIAL ONE (18:40)
--- NOTE | 2018-02-13 18:42 | Diagnostic Imaging Report ---
INDICATION: Central line placement. EXAMINATION: Portable erect AP chest at 6:13 p.m. FINDINGS: In the interval since the exam performed earlier today at 2:06 p.m., a central venous catheter has been inserted through the internal jugular vein on the left. The tip of the catheter overlies the junction of the brachiocephalic and superior vena cava veins. There is no sign of a pneumothorax and the overall appearance of the chest has not changed significantly otherwise. IMPRESSION: 1. There has been insertion of a central venous catheter on the left without apparent complication. The tip of the catheter overlies the junction of the superior vena cava and brachiocephalic veins. 2. There is cardiomegaly and mild pulmonary congestion. There may also be atelectasis/infiltrate involving both lung bases. A followup exam would recommended for continued study. Dictated by: Dictated on workstation # [id number]
[2018-02-13 19:54] VITALS: BP 117/58
== END 2018-02-13 19:54 | disposition short-term general hospital (02) ==
LOC: EDUNIT# 13:39 → ER 13:41
DX: A41.9 Sepsis, unspecified organism (principal); R65.20 Severe sepsis without septic shock; N17.9 Acute kidney failure, unspecified; E72.20 Disorder of urea cycle metabolism, unspecified; E11.22 Type 2 diabetes mellitus with diabetic chronic kidney disease; I12.0 Hypertensive chronic kidney disease with stage 5 chronic kidney disease or end stage renal disease; N18.6 End stage renal disease; J44.1 Chronic obstructive pulmonary disease with (acute) exacerbation; G47.30 Sleep apnea, unspecified; I25.10 Atherosclerotic heart disease of native coronary artery without angina pectoris; E78.00 Pure hypercholesterolemia, unspecified; E11.51 Type 2 diabetes mellitus with diabetic peripheral angiopathy without gangrene; I73.9 Peripheral vascular disease, unspecified; F41.9 Anxiety disorder, unspecified; F32.9 Major depressive disorder, single episode, unspecified; Z87.19 Personal history of other diseases of the digestive system; Z87.440 Personal history of urinary (tract) infections; Z99.2 Dependence on renal dialysis; Z88.2 Allergy status to sulfonamides; Z88.8 Allergy status to other drugs, medicaments and biological substances; Z86.718 Personal history of other venous thrombosis and embolism; Z88.0 Allergy status to penicillin; Z91.048 Other nonmedicinal substance allergy status; Z79.51 Long term (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 of inhaled steroids; Z79.82 Long term (current) use of aspirin; Z79.01 Long term (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 of anticoagulants; Z79.4 Long term (current) use of insulin; Z87.891 Personal history of nicotine dependence; Z90.89 Acquired absence of other organs; Z90.710 Acquired absence of both cervix and uterus
CPT/HCPCS: 36415; 71045; 80053; 81000; 82140; 82805; 83605; 83880; 84484; 85007; 85027; 85610; 85730; 87040; 87077; 87088; 87186; 94640; 94660

== ENCOUNTER → 2018-07-14 | Outpatient (CLI) | payer MEDICARE, MEDICAID ==
[~2018-07-14] MED LIST changes: -LOSA100T28 PO; +LOSA100T8 PO; -LOSA50TA36 PO; +LOSA50TA7 PO
--- NOTE | 2018-07-14 19:39 | Diagnostic Imaging Report ---
INDICATION: Left breast swelling and tenderness. Comparison is made with prior mammogram from 07/16/2016 and 11/24/2012. 2-D and 3-D bilateral diagnostic mammography was performed with with a Computer Aided Detection (CAD) system. FINDINGS: Both breasts are heterogeneously dense, limiting the sensitivity of mammography. There is marked skin thickening involving the left breast, new since prior mammograms. No mass is seen. There is some generalized increased density to the left breast parenchyma. There are scattered benign-appearing parenchymal and vascular calcifications bilaterally. The axillae are unremarkable. Right breast is unremarkable. IMPRESSION: Significant skin thickening involving the left breast and generalized increased density to the left breast without evidence of discrete mass. While features may be secondary to an infectious/inflammatory process such as mastitis, the possibility of inflammatory breast carcinoma cannot be entirely excluded. Close clinical followup after a course of antibiotic therapy is recommended. If this does not resolve, a skin punch biopsy would be recommended to evaluate for inflammatory breast carcinoma. ACR BI-RADS Category 4: Suspicious abnormality. Result letter will be mailed to the patient. Note: At least 10% of breast cancer is not imaged by mammography. Dictated by: Dictated on workstation # [id number]
== END ==
LOC: RAD 14:24
PROVIDERS: ATTEND Family Medicine
DX: N63.20 Unspecified lump in the left breast, unspecified quadrant (principal); R92.2 Inconclusive mammogram
CPT/HCPCS: 77066

== ENCOUNTER 2018-12-28 17:29 | Emergency (ER) | payer MEDICARE, MEDICAID ==
[~2018-12-28] VITALS: Ht 162.6 cm; Wt 136.1 kg
[~2018-12-28 17:29] MED LIST changes: +GBPN600T PO; +LOSA100T57 PO; -LOSA100T8 PO; +LOSA50TA63 PO; -LOSA50TA7 PO; +VERA240T14 PO; -VERA240T98 PO
--- OUTSIDE RECORDS SUMMARY | 2018-12-28 17:36 | XMS REPORT ---
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 Active 151242604 Problem Chronic pain syndrome G89.4 Active 623249214 Problem Sleep apnea in adult G47.33 Active 42679842 Problem Diabetic polyneuropathy associated with type 2 diabetes mellitus E11.42 Active 82622659 Problem Primary insomnia F51.01 Active 3625091 Problem Chronic obstructive pulmonary disease, unspecified COPD type J44.9 Active 49340271 Problem Right carpal tunnel syndrome G56.01 Active 847269726046500 Problem Gastroesophageal reflux disease without esophagitis K21.9 Active 513416888 Problem 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 Active 229449017778935 Problem Chronic kidney disease, stage 4 (severe) N18.4 Active 100607407 Problem Type 2 diabetes mellitus with hyperglycemia E11.65 Active 375368637162410 Problem Psoriasis of scalp L40.9 Active 616479775 Problem Carpal tunnel syndrome, bilateral G56.03 Active 49225754242540904 Problem Depression, unspecified depression type F32.9 Active 65415518 Problem Type 2 diabetes mellitus with other diabetic kidney complication E11.29 Active 978357932 Problem Fibromyalgia M79.7 Active 385616662 Problem Oxygen desaturation during sleep G47.34 Active 925174159 Problem Anemia in other chronic diseases classified elsewhere D63.8 Active 139014879 Problem History of DVT (deep vein thrombosis) Z86.718 Active 055943211 Problem Paresthesia of right upper extremity R20.2 Active 30719943 Problem alf 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 Active 626737101 Problem Supplemental oxygen dependent Z99.81 Active 958971582676 Problem Bilateral lower extremity edema R60.0 Active [id number] ALLERGIES No Information ENCOUNTERS Encounter Location Date Diagnosis [facility] [address], [place] [address] Apr, [facility] [address], [place] [address] Feb, [facility] [address] [address] Feb, [facility] [address], [place] [address] Jan, [facility] [address], [place] [address] Jan, [facility] [address] [place] [address] Jan, [address] [id number] Jan, [facility] [address], [place] [address] Jan, [facility] [address], [place] [address] Jan, [facility] [address], [place] [address] Jan, Essential hypertension I10 [facility] [address], [place] [address] Jan, Chronic obstructive pulmonary disease, unspecified COPD type J44.9 [facility] [id number] [address] Jan, [facility] [id number], [place] [address] Jan, [facility] [id number] [address] Jan, Type 2 diabetes mellitus with other diabetic kidney complication E11.29 ; Anemia in other chronic diseases classified elsewhere D63.8 ; Chronic obstructive pulmonary disease, unspecified COPD type J44.9 and BMI 60.0-69.9, adult Z68.44 [facility] [address] [address] Jan, [facility] [id number] [place] [address] Jan, [facility] [id number] [id number] Jan, [facility] [id number] [place] [id number] Dec, [facility] [id number] [place] [id number] Dec, [facility] [address] [place] [id number] Dec, Essential hypertension I10 ; Type 2 diabetes mellitus with other diabetic kidney complication E11.29 ; Depression, unspecified depression type F32.9 ; Supplemental oxygen dependent Z99.81 ; Chronic pain syndrome G89.4 ; Fibromyalgia M79.7 ; Carpal tunnel syndrome, bilateral G56.03 and Chronic kidney disease, stage 4 (severe) N18.4 [facility] [id number] [place] [address] Dec, Essential hypertension I10 [facility] [id number] [place] [address] November, Type 2 diabetes mellitus with other diabetic kidney complication E11.29 [facility] [id number] [place] [address] November, Chronic pain syndrome G89.4 [facility] [address], [place] [address] November, [facility] [id number] [place] [address] November, [facility] [id number] [place] [address] November, [facility] [address] [place] [address] Oct, Type 2 diabetes mellitus with other diabetic kidney complication E11.29 [place] [address], [place] [address] Oct, Primary insomnia F51.01 [facility] [id number] [id number] Oct, Bilateral lower extremity edema R60.0 [place] [address] [place] [address] Oct, [place] [address] [place] [address] Sep, Type 2 diabetes mellitus with other diabetic kidney complication E11.29 and Chronic obstructive pulmonary disease, unspecified COPD type J44.9 [place] [address] [place] [address] 15 Aug, 2017 Type 2 diabetes mellitus with other diabetic kidney complication E11.29 [address] [place] [address] 12 Aug, 2017 Gastroesophageal reflux disease without esophagitis K21.9 ; alf current use of anticoagulant Z79.01 ; Chronic pain syndrome G89.4 ; Essential hypertension I10 and Type 2 diabetes mellitus with other diabetic kidney complication E11.29 [place] [address], [place] [address] 08 Aug, 2017 Chronic pain syndrome G89.4 [place] [address], [place] [address] Aug, Type 2 diabetes mellitus with other diabetic kidney complication E11.29 [place] [facility] [address], [place] [address] Jul, Diabetic polyneuropathy associated with type 2 diabetes mellitus E11.42 [facility] [facility] [address], [place] [address] Jul, Primary insomnia F51.01 [facility] [address], [place] [address] Jul, [place] [address], [place] [address] Jul, Type 2 diabetes mellitus with other diabetic kidney complication E11.29 and Chronic obstructive pulmonary disease, unspecified COPD type J44.9 [place] [facility] [address], [place] [address] 08 Jul, 2017 Type 2 diabetes mellitus with other diabetic kidney complication E11.29 [facility] [id number] [place] [address] Jun, Type 2 diabetes mellitus with other diabetic kidney complication E11.29 [facility] [id number] [place] [address] 27 Jun, 2017 [place] [id number] [place] [address] Jun, Chronic obstructive pulmonary disease, unspecified COPD type J44.9 [facility] [facility] [id number] [place] [address] May, Type 2 diabetes mellitus with other diabetic kidney complication E11.29 [place] [address], [place] [address] May, 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 and Essential hypertension I10 [place] [facility] [id number] [place] [address] May, Anemia in other chronic diseases classified elsewhere D63.8 ; Chronic obstructive pulmonary disease, unspecified COPD type J44.9 ; Oxygen desaturation during sleep G47.34 ; Sleep apnea in adult G47.33 and Supplemental oxygen dependent Z99.81 [address] [place] [address] May, Type 2 diabetes mellitus with other diabetic kidney complication E11.29 ; Essential hypertension I10 ; Chronic pain syndrome G89.4 ; BMI 40.0- 44.9, adult Z68.41 ; Gastroesophageal reflux disease without esophagitis K21.9 ; 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 ; 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 ; Diabetic polyneuropathy associated with type 2 diabetes mellitus E11.42 ; Edema of both legs R60.0 and Supplemental oxygen dependent Z99.81 [place] [address] [address] May, [place] [id number] [place] [address] May, Essential hypertension I10 and Gastroesophageal reflux disease without esophagitis K21.9 [place] [address] [address] May, [place] [address] [address] May, Type 2 diabetes mellitus with other diabetic kidney complication E11.29 and alf current use of anticoagulant Z79.01 [facility] [id number] [place] [address] Apr, Chronic pain syndrome G89.4 and Essential hypertension I10 [facility] [id number] [place] [address] Apr, Type 2 diabetes mellitus with other diabetic kidney complication E11.29 [facility] [id number] [place] [address] Apr, Type 2 diabetes mellitus with other diabetic kidney complication E11.29 [place] [facility] [id number] [place] [address] Apr, Essential hypertension I10 [place] [facility] [id number] [place] [address] Apr, Gastroesophageal reflux disease without esophagitis K21.9 [place] [facility] [id number] [place] [address] Apr, Type 2 diabetes mellitus with other diabetic kidney complication E11.29 [place] [id number] [place] [address] Apr, Type 2 diabetes mellitus with other diabetic kidney complication E11.29 and 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 [address] [place] [address] 27 Mar, 2017 Encounter for immunization Z23 and Preoperative examination Z01.818 [facility] [id number] [place] [address] Mar, [facility] [id number] [place] [address] Mar, Type 2 diabetes mellitus with other diabetic kidney complication E11.29 [place] [id number] [place] [address] 08 Mar, 2017 Type 2 diabetes mellitus with other diabetic kidney complication E11.29 [place] [id number] [place] [address] Mar, Gastroesophageal reflux disease without esophagitis K21.9 [place] [id number] [place] [address] Mar, Essential hypertension I10 [place] [id number] [place] [address] Feb, 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 [id number] [place] [address] Feb, Type 2 diabetes mellitus with other diabetic kidney complication E11.29 [facility] [id number] [place] [address] Feb, Type 2 diabetes mellitus with other diabetic kidney complication E11.29 [place] [id number] [place] [address] Feb, Type 2 diabetes mellitus with other diabetic kidney complication E11.29 [place] [id number] [place] [address] Feb, Gastroesophageal reflux disease without esophagitis K21.9 [facility] [id number] [place] [address] Feb, Type 2 diabetes mellitus with other diabetic kidney complication E11.29 [facility] [address], [place] [address] Feb, alf current use of anticoagulant Z79.01 [facility] [address], [place] [address] Jan, Type 2 diabetes mellitus with other diabetic kidney complication E11.29 [facility] [address], [place] [address] Jan, Type 2 diabetes mellitus with other diabetic kidney complication E11.29 [facility] [address], [place] [address] Jan, Chronic pain syndrome G89.4 [facility] [address], [place] [address] Jan, [facility] [address], [place] [address] Jan, [facility] [address], [place] [address] Jan, [facility] [address] [place] [address] Jan, [facility] [address], [place] [address] Jan, Primary insomnia F51.01 ; Type 2 diabetes mellitus with other diabetic kidney complication E11.29 ; Chronic pain syndrome G89.4 and Essential hypertension I10 [facility] [address], [place] [address] Jan, Primary insomnia F51.01 [facility] [address], [place] [address] Jan, Type 2 diabetes mellitus with other diabetic kidney complication E11.29 [facility] [address], [place] [address] Jan, [facility] [id number] [place] [address] Jan, Chronic obstructive pulmonary disease, unspecified COPD type J44.9 [facility] [id number] [place] [address] Jan, Essential hypertension I10 ; Type 2 diabetes mellitus with other diabetic kidney complication E11.29 ; Chronic obstructive pulmonary disease, unspecified COPD type J44.9 ; Chronic kidney disease, stage 4 (severe) N18.4 ; Right carpal tunnel syndrome G56.01 ; 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 ; alf (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 and Diabetic polyneuropathy associated with type 2 diabetes mellitus E11.42 [place] [id number] [place] [address] Jan, Gastroesophageal reflux disease without esophagitis K21.9 [place] [id number] [place] [address] Dec, [facility] [id number] [place] [address] Dec, [facility] [id number] [place] [address] Dec, alf current use of anticoagulant Z79.01 ; Chronic pain syndrome G89.4 and Essential hypertension I10 [facility] [id number] [place] [address] Dec, [facility] [id number] [place] [address] Dec, Type 2 diabetes mellitus with other diabetic kidney complication E11.29 [facility] [address], [place] [address] Dec, [facility] [id number] [place] [address] Dec, Gastroesophageal reflux disease without esophagitis K21.9 [facility] [id number] [place] [address] November, Type 2 diabetes mellitus with other diabetic kidney complication E11.29 [facility] [address], [place] [address] November, [facility] [id number] [place] [address] November, Type 2 diabetes mellitus with other diabetic kidney complication E11.29 [facility] [id number] [place] [address] November, [facility] [id number] [place] [address] November, Type 2 diabetes mellitus with other diabetic kidney complication E11.29 [facility] [id number] [place] [address] November, [facility] [id number] [place] [address] Oct, Essential hypertension I10 [facility] [id number] [place] [address] Oct, Psoriasis of scalp L40.9 [facility] [address] [place] [address] Oct, Essential hypertension I10 and Chronic pain syndrome G89.4 [facility] [address], [place] [address] Oct, [facility] [address], [place] [address] Sep, Type 2 diabetes mellitus with other diabetic kidney complication E11.29 [facility] [address], [place] [address] Sep, [facility] [id number] [place] [address] Sep, Type 2 diabetes mellitus with other diabetic kidney complication E11.29 [facility] [address], [place] [address] 20 Mar, 2017 Type 2 diabetes mellitus with other diabetic kidney complication E11.29 [place] [address] [place] [address] 09 Sep, 2017 Type 2 diabetes mellitus with other [...] extremity R20.2 and Psoriasis of scalp L40.9 [place] [address] [place] [address] Sep, [address] [address] Aug, Essential hypertension I10 [place] [address] [address] Aug, History of DVT (deep vein thrombosis) Z86.718 [place] [address] [place] [address] Aug, [place] [id number] [place] [address] Jul, [place] [id number] [place] [address] Jul, [place] [address] [place] [address] Jul, alf current use of anticoagulant Z79.01 ; Chronic pain syndrome G89.4 and Chronic kidney disease, stage 4 (severe) N18.4 [place] [id number] [place] [address] Jul, [place] [address] [place] [address] Jul, [place] [address] [place] [address] Jul, [place] [id number] [place] [address] Jul, [place] [id number] [place] [address] Jul, [place] [id number] [place] [address] Jul, Type 2 diabetes mellitus with other diabetic kidney complication E11.29 [address] [id number] [place] [address] Jul, History of DVT (deep vein thrombosis) Z86.718 [place] [id number] [place] [address] Jun, [place] [address] [place] [address] Jun, History of DVT (deep vein thrombosis) Z86.718 [address] [id number] [place] [address] 15 Jun, 2016 Post traumatic stress disorder (PTSD) F43.10 [place] [address] [place] [address] 07 Jun, 2016 Type 2 diabetes mellitus [...] pain M79.641 and Right wrist pain M25.531 [facility] [id number] [place] [address] May, [facility] [id number] [place] [address] May, [facility] [address] [address] May, [facility] [id number] [place] [address] May, [facility] [id number] [place] [address] May, Anemia in other chronic diseases classified elsewhere D63.8 [facility] [address] [address] May, [facility] [id number] [place] [address] Apr, [facility] [id number] [place] [address] 27 Mar, 2016 Dermatofibroma D23.9 [facility] [id number] [place] [address] 20 Mar, 2016 [facility] [id number] [place] [address] 14 Mar, 2016 Chronic pain syndrome G89.4 [facility] [id number] [place] [address] 09 Mar, 2016 [facility] [id number] [place] [address] 07 Mar, 2016 [facility] [id number] [place] [address] 06 Mar, 2016 [facility] [address] [place] [address] Feb, [facility] [address], [place] [address] Feb, [facility] [address], [place] [address] Feb, [facility] [address] [place] [address] Feb, [facility] [address] [place] [address] Feb, [facility] [address] [place] [address] Feb, [facility] [address] [place] [address] Feb, Type 2 diabetes mellitus with other [...] N18.4 [facility] [address], [place] [address] Feb, Skin tags, multiple acquired L91.8 [facility] [id number] [place] [address] Jan, [facility] [address] [address] Jan, Dental examination Z01.20 [facility] [id number] [place] [address] Jan, [facility] [address] [place] [address] [place] [address] Jan, Type 2 diabetes mellitus with other [...] Renal failure, chronic, stage 4 (severe) N18.4 [address] [place] [id number] Dec, Diabetes type 2, uncontrolled E11.[id number] [place] [phone] Dec, [id number] [place] [phone] Dec, Type 2 diabetes mellitus with other [...] type F32.9 [facility] [address] [id number] [id number] Dec, Dental caries K02.9 [facility] [id number] [place] [id number] Dec, [facility] [address] [id number] [place] [id number] Dec, Dental examination Z01.20 [facility] [address] [id number] [place] [id number] November, Dental examination Z01.20 and Dental caries K02.9 [facility] [address] [id number] [id number] Oct, [facility] [id number] [place] [id number] Oct, [facility] [address] [id number] [id number] Sep, [facility] [address] [id number] [place] [address] [id number] Sep, [facility] [address] [id number] [place] [address] [id number] Sep, [facility] [address] [id number] [place] [address] [id number] Sep, Other chronic pain 338.29 [facility] [address] [id number], [place] [id number] Aug, Diabetes type 2, uncontrolled E11.65 and Morbid obesity due to excess calories E66.01 [facility] [address] [id number], [place] [id number] Aug, Hair loss L65.9 [facility] [address] [id number], [place] [id number] Aug, [facility] [address] [id number], [place] [id number] Jul, [facility] [address] [id number], [place] [id number] Jul, [facility] [address] [id number] [place] [address] [id number] Jun, [facility] [address] [id number] [place] [address] [id number] Jun, Hair loss L65.9 and Disorder of the skin and subcutaneous tissue, unspecified L98.9 [id number] [place] [address] [id number] May, Type 2 diabetes mellitus with other diabetic kidney complication E11.29 ; Type 2 diabetes mellitus with hyperglycemia E11.65 ; Morbid obesity due to excess calories E66.01 and Essential hypertension I10 [place] [id number] [place] [address] [id number] May, Diabetes type 2, uncontrolled E11.65 ; Encounter for immunization Z23 and Morbid obesity due to excess calories E66.01 [place] [id number] [place] [address] [id number] May, [facility] [address] [address] Apr, [address] [id number] Apr, Hyperglycemia R73.[address] [id number] Apr, [address] [id number] Apr, Depression F32.9 ; Encounter for immunization Z23 ; Hyperglycemia R73.9 and Anemia in other chronic diseases classified elsewhere D63.8 [facility] [address] [place] [address] [id number] Mar, [id number] [place] [address] [id number] Feb, Positive occult stool blood test 792.1 [place] [id number] [place] [address] [id number] Feb, Depression 311 ; Other chronic pain 338.29 and Diabetes with renal manifestations, type II or unspecified type, not stated as uncontrolled 250.40 [facility] [id number] [place] [address] Feb, Occult blood in stools 792.[id number] [place] [address] [id number] Feb, Anemia 285.9 ; Occult blood positive stool 792.1 ; Unspecified essential hypertension 401.9 and Other chronic pain 338.29 [facility] [place] [id number], [place] [id number] Feb, [facility] [place] [id number] [place] [address] [id number] Feb, Anemia 285.9 [facility] [place] [id number], [place] [id number] Feb, [facility] [place] [id number] [place] [address] [id number] Feb, [facility] [place] [id number] [place] [address] [id number] Feb, Diabetes with renal manifestations, type II or unspecified type, not stated as uncontrolled 250.40 ; Other chronic pain 338.29 ; Unspecified essential hypertension 401.9 ; Anemia 285.9 and Depression 311 [facility] [place] [id number] [place] [address] [id number] Jan, [facility] [id number] [place] [address] [id number] Jan, Anemia 285.9 and Follow up V67.9 [facility] [place] [id number], [place] [id number] Jan, [facility] [id number] [place] [address] [id number] Jan, [facility] [place] [id number] [place] [address] [id number] Jan, [facility] [id number] [place] [address] [id number] Dec, [facility] [address]00565100[place], [place] [address] Oct, [facility] [id number] [place] [address] Oct, [facility] [id number] [place] [address] Sep, [facility] [address] [id number], [place] [id number] Sep, [facility] [id number] [place] [address] Sep, [facility] [address] [id number], [place] [id number] Aug, [facility] [place] [facility] [address] [facility] [id number], [place] [address] Aug, [facility] [place] [facility] [address] [facility] [id number], [place] [address] Aug, [facility] [address] [id number], [place] [id number] Aug, [facility] [place] [facility] [address] [facility] [id number] [place] [address] Aug, [facility] [place] [facility] [address] [id number], [place] [address] Aug, [facility] [address] [id number], [place] [id number] Aug, [facility] [place] [facility] [address]00565100[place], [place] [address] Aug, [facility] [address] [facility] [id number], [place] [id number] Jul, [facility] [place] [facility] [address]00565100[place], [place] [address] Jul, [facility] [place] [facility] [address] [id number], [place] [address] Jul, [facility] [address] [id number], [place] [id number] Jul, [facility] [place] [facility] [address] [facility] [id number], [place] [address] Jul, [facility] [address] [facility] [id number], [place] [id number] Jul, [facility] [place] [facility] [address] [facility] [id number], [place] [address] Jul, [facility] [address] [id number], [place] [id number] Jun, [facility] [address] [facility] [id number], [place] [id number] Jun, [facility] [place] [facility] [address] [facility] [id number] [place] [address] Jun, [facility] [place] [facility] [address] [facility] [id number] [place] [address] Jun, [facility] [address] [facility] [id number], [place] [id number] Jun, [facility] [place] [facility] [address] [facility] [id number], [place] [address] Jun, [facility] [address] [facility] [id number], [place] [id number] May, [facility] [place] [facility] [address] [id number], [place] [address] May, [facility] [place] [facility] [address]00565100[place], [place] [address] May, [facility] [address] [facility] [id number], [place] [id number] Apr, [facility] [place] [facility] [address] [facility] [id number][place] [address] Apr, [facility] [address] [facility] [id number], [place] [id number] Apr, [facility] [address] [facility] [id number], [place] [id number] Apr, [facility] [place] [facility] [address] [facility] [id number], [place] [address] Apr, [facility] [place] [facility] [address] [facility] [id number], [place] [address] Apr, [facility] [address] [facility] [id number], [place] [id number] Mar, [facility] [place] [facility] [address] [facility] [id number], [place] [address] Mar, [facility] [address] [facility] [id number], [place] [id number] Mar, [facility] [place] [facility] [address] [id number] [place] [address] Mar, [facility] [address] [id number] [place] [id number] Mar, [facility] [place] [facility] [address] [facility] [id number] [place] [address] Mar, [facility] [address] [id number] [place] [id number] Mar, [facility] [place] [facility] [address] [id number] [place] [address] Mar, [facility] [address] [id number] [place] 764352553 Mar, [facility] [place] [facility] [address] [facility] [id number] [place] [address] Mar, [facility] [address] [facility] [id number] [place] [id number] Feb, [facility] [place] [facility] [address] [facility] [id number], [place] [address] Feb, [facility] [address] [facility] [id number], [place] [id number] Jan, [facility] [place] [facility] [address] [facility] [id number], [place] [address] Jan, [facility] [address] [facility] [id number] [place] 736209302 Jan, [facility] [place] [facility] [address] [facility] [id number], [place] [address] Jan, [facility] [address] [facility] [id number], [place] [id number] Jan, [facility] [place] [facility] [address] [facility] [id number] [place] [address] Jan, [facility] [place] [facility] [address] [facility] [id number], [place] [address] Dec, [facility] [place] [facility] [address] [facility] [id number], [place] [address] Dec, [facility] [address] [id number] [place] [id number] November, [facility] [place] [facility] [address] [id number] [place] [address] November, [facility] [address] [id number] [place] [id number] November, [facility] [place] [facility] [address] [id number] [place] [address] November, [facility] [address] [id number] [place] 539292592 Oct, [facility] [place] [facility] [address] [id number] [place] [address] Oct, [facility] [place] [facility] [address] [facility] [id number] [place] [address] Oct, [facility] [place] [facility] [address] [facility] [id number] [place] [address] Oct, [facility] [place] [facility] [address] [id number] [place] [address] Oct, [facility] [place] [facility] [address] [facility] [id number] [place] [address] Oct, [facility] [address] [id number] [place] [id number] Sep, [facility] [address] [id number] [place] [id number] Sep, [facility] [place] [facility] [address] [id number] [place] [address] Sep, [facility] [place] [facility] [address] [id number] [place] [address] Sep, [facility] [address] [id number] [place] 654535364 Sep, [facility] [place] [facility] [address] [facility] [id number] [place] [address] Sep, [facility] [place] [facility] [address] [facility] [id number], [place] [address] Aug, [facility] [place] [facility] [address] [facility] [id number], [place] [address] Aug, [facility] [address] [facility] [id number], [place] 480211680 Aug, [facility] [address] [facility] [id number] [place] 989252271 Aug, [facility] [place] [facility] [address] [facility] [id number], [place] [address] Aug, [facility] [address] [facility] [id number] [place] 737607046 Aug, [facility] [place] [facility] [address]00565100[place], [place] [address] Aug, [facility] [address] [id number], [place] 286614393 Aug, [facility] [place] [facility] [address]00565100[place], [place] [address] Aug, [facility] [place] [address] [facility] [id number], [place] [id number] Aug, [facility] [place] [facility] [address]00565100[place], [place] [address] Aug, [facility] [address] [id number], [place] [id number] Aug, [facility] [place] [facility] [address]00565100[place], [place] [address] Aug, [facility] [place] [facility] [address] [facility] [id number], [place] [address] Jul, [facility] [address] [facility] [id number], [place] [id number] Jun, [facility] [place] [facility] [address] [id number], [place] [address] Jun, [facility] [place] [facility] [address]00565100[place], [place] [address] Jun, [facility] [place] [facility] [address] [id number] [place] [address] Jun, [facility] [address] [facility] [id number], [place] [id number] Jun, [facility] [place] [facility] [id number] [address] Jun, [facility] [place] [facility] [address] [facility] [id number], [place] [address] Jun, [facility] [address] [facility] [id number] [place] 558281641 Jun, [facility] [place] [facility] [address] [facility] [id number], [place] [address] Jun, [facility] [place] [facility] [address] [id number], [place] [address] May, [facility] [address] [id number], [place] 168875131 May, [facility] [place] [facility] [address] [id number], [place] [address] May, [facility] [place] [facility] [address] [id number], [place] [address] May, [facility] [place] [facility] [address] [id number], [place] [address] May, [facility] [place] [facility] [address] [facility] [id number], [place] [address] May, [facility] [address] [facility] [id number], [place] 214729898 May, [facility] [place] [facility] [address] [facility] [id number], [place] [address] May, [facility] [place] [address] [facility] [id number], [place] 959903394 May, [facility] [place] [facility] [address] [facility] [id number], [place] [address] May, [facility] [address] [facility] [id number], [place] [id number] Apr, [facility] [place] [facility] [address] [facility] [id number], [place] [address] Apr, [facility] [place] [facility] [address] [facility] [id number], [place] [address] Apr, [facility] [place] [address]00565100[place], [place] 904276108 Apr, [facility] [place] [facility] [address] [facility] [id number], [place] [address] Apr, [facility] [place] [facility] [address]00565100[place], [place] [address] Apr, [facility] [place] [id number], [place] 436318849 Apr, [facility] [place] [facility] [address]00565100[place], [place] [address] Apr, [facility] [place] [facility] [address] [facility] [id number], [place] [address] Apr, [facility] [place] [facility] [address]00565100[place], [place] [address] Apr, [facility] [place] [id number], [place] 394455619 Apr, [facility] [place] [facility] [address] [facility] [id number], [place] [address] Apr, [facility] [place] [id number], [place] 301919977 Apr, [facility] [place] [facility] [address] [facility] [id number], [place] [address] Apr, [facility] [place] [address] [facility] [id number], [place] 534097590 Apr, [facility] [place] [facility] [address]00565100[place], [place] [address] Apr, [facility] [place] [facility] [address] [facility] [id number], [place] [address] Apr, [facility] [address] [facility] [id number], [place] [address] Apr, [facility] [place] [address] [id number], [place] [id number] Apr, [facility] [address] [facility] [id number], [place] [address] Mar, [facility] [address] [facility] [id number], [place] [address] Mar, [facility] [place] [address] [id number] [place] 936337879 Mar, [facility] [place] [address] [id number] [place] 963116679 Mar, [facility] [place] [address] [id number] [place] 782694041 Mar, [facility] [place] [address] [id number] [place] 397534516 Feb, [facility] [place] [address] [id number] [place] 037796333 Feb, [facility] [place] [address] [id number] [place] 315492846 Feb, [facility] [address] [facility] [id number], [place] [address] Feb, [facility] [place] [address] [id number], [place] 440151415 Feb, [facility] [address] [id number] [place] 963254149 Feb, [facility] [address] [id number] [place] 286128942 Feb, [facility] [address] [id number] [place] 881328189 Feb, [facility] [place] [address] [id number] [place] 852672422 Feb, [facility] [place] [address] [id number] [place] 007678913 Jan, [facility] [place] [address] [id number] [place] 125836924 Jan, [facility] [place] [address] [id number] [place] 614586076 Jan, [facility] [place] [address] [id number] [place] 946837935 Jan, [facility] [place] [address] [id number] [place] 418335944 Jan, [facility] [place] [address]00565100[place], [place] [address] Jan, [facility] [place] [address] [id number] [place] 655788069 Jan, [facility] [place] [address] [id number] [place] 423528138 Jan, [facility] [place] [address] [id number] [place] 842422342 Dec, [facility] [place] [address] [id number] [place] 647256915 November, [facility] [place] [address] [id number] [place] 150506857 November, [facility] [place] [address] [id number] [place] 203576252 November, [facility] [place] [address] [id number] [place] [id number] November, [facility] [place] [address] [id number] [place] 726476450 November, [facility] [place] [address] [id number] [place] 489810903 November, [facility] [place] [address] [id number] [place] 844658211 Jul, [facility] [place] [address] [id number] [place] 841025600 Jul, [facility] [place] [address] [id number] [place] 511072432 Jul, [facility] [place] [address] [id number] [place] 498023229 Jun, [facility] [place] [address]00565100[place], [place] [address] Jun, [facility] [place] [address] [id number], [place] [id number] May, [facility] [address] [facility] [place] [id number], [place] [address] May, [facility] [place] [address] [id number][place] [id number] May, [facility] [address] [facility] [place] [id number], [place] [address] May, [facility] [place] [address] [id number][place] [id number] May, [facility] [address] [facility] [place] [id number], [place] [address] May, [facility] [place] [address] [facility] [id number][place] [id number] Apr, [facility] [id number], [place] [address] Apr, [facility] [address] [facility] [place] [id number], [place] [address] 18 Apr, 2012 [facility] [place] [address] [id number][place] [id number] Apr, [facility] [place] [address] [id number][place] [id number] Apr, [facility] [address] [facility] [place] [id number], [place] [address] Apr, [facility] [address] [facility] [place] [id number], [place] [address] Apr, [facility] [place] [address] [id number][place] [id number] Apr, [facility] [address] [facility] [place] [id number], [place] [address] 10 Apr, 2012 [facility] [place] [address] [id number][place] [id number] 09 Apr, 2012 [facility] [place] [address] [id number] [place] [id number] Apr, [facility] [place] [address] [id number] [place] [id number] Mar, [facility] [place] [address] [id number] [place] [id number] Feb, [facility] [place] [address] [id number] [place] [address] Jan, [facility] [place] [address] [id number] [place] [id number] Dec, [facility] [place] [address] [id number] [place] [id number] Dec, [facility] [place] [address] [id number] [place] [address] Dec, [facility] [place] [address] [id number] [place] [id number] Dec, [facility] [place] [address] [id number] [place] [id number] Dec, [facility] [place] [address] [id number] [place] [id number] November, [facility] [place] [address] [id number] [place] [id number] November, [facility] [place] [address] [id number] [place] [id number] November, [facility] [place] [address] [facility] [place] [id number], [place] [address] November, [facility] [place] [address] [id number] [place] [id number] November, [facility] [place] [address] [id number] [place] [id number] November, [facility] [place] [address] [id number] [place] [id number] Oct, [facility] [place] [address] [id number] [place] [id number] Oct, [facility] [place] [address] [id number] [place] [id number] Oct, [facility] [place] [address] [id number] [place] [id number] Oct, [facility] [place] [address] [id number] [place] [id number] Oct, [facility] [place] [address] [id number] [place] [id number] Oct, [facility] [place] [address] [id number] [place] [id number] Sep, [facility] [place] [address] [id number] [place] [id number] Aug, [facility] [place] [address] [id number] [place] [id number] Aug, [facility] [place] [address] [id number] [place] [id number] Jul, [facility] [address] [facility] [place] [id number], [place] [address] Jun, [facility] [address] [id number], [place] [address] Jun, [facility] [id number], [place] [address] Jun, [facility] [id number], [place] [address] Jun, [facility] [id number], [place] [address] May, [facility] [id number], [place] [address] May, [facility] [id number], [place] [address] Apr, [facility] [id number], [place] [address] Apr, [facility] [id number], [place] [address] Apr, [facility] [facility] [id number] [address] Feb, [facility] [facility] [id number] [address] 15 Aug, 2010 [facility] [address] [id number] [place] [address] 18 Jul, 2010 [facility] [place] [facility] [address] [id number] [place] [address] 30 Jun, 2010 [facility] [address] [id number] [place] [address] 29 May, 2010 [facility] [place] [facility] [address] [id number] [place] [address] May, [facility] [address] [id number] [place] [address] May, [facility] [address] [facility] [place] [id number] [place] [address] May, [facility] [address] [facility] [place] [id number] [place] [address] May, [facility] [address] [id number] [place] [address] 16 Aug, 2009 [facility] [address] [facility] [place] [id number] [place] [address] Jun, [facility] [address] [facility] [place] [id number] [place] [address] Jun, [facility] [address] [facility] [place] [id number] [place] [address] Jun, [facility] [place] [facility] [address] [id number] [place] [address] 24 May, 2009 [facility] [facility] [address] [id number] [place] [address] 28 Apr, 2009 [facility] [address] [facility] [place] [id number] [place] [address] Apr, [facility] [facility] [address] [facility] [place] [id number] [place] [address] Apr, [facility] [address] [facility] [id number] [address] Jan, [facility] [address] [facility] [place] [id number], [place] [address] Oct, [facility] [address] [facility] [place] [id number] [address] May, [facility] [address] [facility] [place] [id number], [place] [address] May, IMMUNIZATIONS No Known Immunizations SOCIAL HISTORY Never Assessed REASON FOR VISIT [place] [place] VITAL SIGNS MEDICATIONS Unknown [...] Dialysis [facility] 2012 -Dr. Simon now [facility] Medical History Colonoscopy (polyps 2 ) [...]
--- OUTSIDE RECORDS SUMMARY | 2018-12-28 17:37 | XMS REPORT ---
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 Active 732609541 Problem Chronic pain syndrome G89.4 Active 837719414 Problem Sleep apnea in adult G47.33 Active 99487314 Problem Diabetic polyneuropathy associated with type 2 diabetes mellitus E11.42 Active 93753819 Problem Primary insomnia F51.01 Active 6355291 Problem Chronic obstructive pulmonary disease, unspecified COPD type J44.9 Active 23520878 Problem Right carpal tunnel syndrome G56.01 Active 696844929001628 Problem Gastroesophageal reflux disease without esophagitis K21.9 Active 204972477 Problem 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 Active 890764626996036 Problem Chronic kidney disease, stage 4 (severe) N18.4 Active 541286178 Problem Type 2 diabetes mellitus with hyperglycemia E11.65 Active 037641436253626 Problem Psoriasis of scalp L40.9 Active 753466874 Problem Carpal tunnel syndrome, bilateral G56.03 Active 50069226040837046 Problem Depression, unspecified depression type F32.9 Active 11736839 Problem Type 2 diabetes mellitus with other diabetic kidney complication E11.29 Active 116244540 Problem Fibromyalgia M79.7 Active 152375586 Problem Oxygen desaturation during sleep G47.34 Active 461516755 Problem Anemia in other chronic diseases classified elsewhere D63.8 Active 436253625 Problem History of DVT (deep vein thrombosis) Z86.718 Active 062532565 Problem Paresthesia of right upper extremity R20.2 Active 34691655 Problem shelter 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 Active 851765830 Problem Supplemental oxygen dependent Z99.81 Active 658297544047 Problem Bilateral lower extremity edema R60.0 Active 685264407 ALLERGIES No Information ENCOUNTERS Encounter Location Date Diagnosis [facility] [address], [place] [address] Apr, [facility] [address], [place] [address] Feb, [facility] [address] [place] [address] Feb, [facility] [address], [place] [address] Jan, [facility] [address], [place] [address] Jan, [facility] [id number] [place] [address] Jan, [address] [id number] Jan, [facility] [address], [place] [address] Jan, [facility] [address], [place] [address] Jan, [facility] [address], [place] [address] Jan, Essential hypertension I10 [facility] [address], [place] [address] Jan, Chronic obstructive pulmonary disease, unspecified COPD type J44.9 [facility] [id number] [address] Jan, [facility] [id number], [place] [address] Jan, [facility] [id number], [place] [address] Jan, Type 2 diabetes mellitus with other diabetic kidney complication E11.29 ; Anemia in other chronic diseases classified elsewhere D63.8 ; Chronic obstructive pulmonary disease, unspecified COPD type J44.9 and BMI 60.0-69.9, adult Z68.44 [facility] [address] [address] Jan, [facility] [id number] [place] [address] Jan, [facility] [id number] [id number] Jan, [facility] [id number] [place] [id number] Dec, [facility] [id number] [place] [id number] Dec, [facility] [address] [place] [id number] Dec, Essential hypertension I10 ; Type 2 diabetes mellitus with other diabetic kidney complication E11.29 ; Depression, unspecified depression type F32.9 ; Supplemental oxygen dependent Z99.81 ; Chronic pain syndrome G89.4 ; Fibromyalgia M79.7 ; Carpal tunnel syndrome, bilateral G56.03 and Chronic kidney disease, stage 4 (severe) N18.4 [facility] [id number] [place] [address] Dec, Essential hypertension I10 [facility] [id number] [place] [address] November, Type 2 diabetes mellitus with other diabetic kidney complication E11.29 [facility] [id number] [place] [address] November, Chronic pain syndrome G89.4 [facility] [address], [place] [address] November, [facility] [id number] [place] [address] November, [facility] [id number] [place] [address] November, [facility] [address] [place] [address] Oct, Type 2 diabetes mellitus with other diabetic kidney complication E11.29 [place] [address], [place] [address] Oct, Primary insomnia F51.01 [facility] [id number] [id number] Oct, Bilateral lower extremity edema R60.0 [place] [address] [place] [address] Oct, [place] [address] [place] [address] Sep, Type 2 diabetes mellitus with other diabetic kidney complication E11.29 and Chronic obstructive pulmonary disease, unspecified COPD type J44.9 [place] [facility] [address] [place] [address] 15 Aug, 2017 Type 2 diabetes mellitus with other diabetic kidney complication E11.29 [address] [place] [address] 12 Aug, 2017 Gastroesophageal reflux disease without esophagitis K21.9 ; shelter current use of anticoagulant Z79.01 ; Chronic pain syndrome G89.4 ; Essential hypertension I10 and Type 2 diabetes mellitus with other diabetic kidney complication E11.29 [place] [facility] [address], [place] [address] 08 Aug, 2017 Chronic pain syndrome G89.4 [place] [address], [place] [address] Aug, Type 2 diabetes mellitus with other diabetic kidney complication E11.29 [place] [address], [place] [address] Jul, Diabetic polyneuropathy associated with type 2 diabetes mellitus E11.42 [place] [facility] [address], [place] [address] Jul, Primary insomnia F51.01 [facility] [address], [place] [address] Jul, [place] [address], [place] [address] Jul, Type 2 diabetes mellitus with other diabetic kidney complication E11.29 and Chronic obstructive pulmonary disease, unspecified COPD type J44.9 [place] [facility] [address], [place] [address] 08 Jul, 2017 Type 2 diabetes mellitus with other diabetic kidney complication E11.29 [facility] [id number] [place] [address] Jun, Type 2 diabetes mellitus with other diabetic kidney complication E11.29 [facility] [id number] [place] [address] 27 Jun, 2017 [place] [facility] [id number] [place] [address] Jun, Chronic obstructive pulmonary disease, unspecified COPD type J44.9 [place] [facility] [id number] [place] [address] May, Type 2 diabetes mellitus with other diabetic kidney complication E11.29 [place] [facility] [address], [place] [address] May, 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 and Essential hypertension I10 [place] [facility] [id number] [place] [address] May, Anemia in other chronic diseases classified elsewhere D63.8 ; Chronic obstructive pulmonary disease, unspecified COPD type J44.9 ; Oxygen desaturation during sleep G47.34 ; Sleep apnea in adult G47.33 and Supplemental oxygen dependent Z99.81 [address] [place] [address] May, Type 2 diabetes mellitus with other diabetic kidney complication E11.29 ; Essential hypertension I10 ; Chronic pain syndrome G89.4 ; BMI 40.0- 44.9, adult Z68.41 ; Gastroesophageal reflux disease without esophagitis K21.9 ; 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 ; remote 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 ; Diabetic polyneuropathy associated with type 2 diabetes mellitus E11.42 ; Edema of both legs R60.0 and Supplemental oxygen dependent Z99.81 [place] [address] [address] May, [place] [facility] [id number] [place] [address] May, Essential hypertension I10 and Gastroesophageal reflux disease without esophagitis K21.9 [place] [facility] [address] [address] May, [place] [address] [address] May, Type 2 diabetes mellitus with other diabetic kidney complication E11.29 and shelter current use of anticoagulant Z79.01 [place] [id number] [place] [address] Apr, Chronic pain syndrome G89.4 and Essential hypertension I10 [facility] [id number] [place] [address] Apr, Type 2 diabetes mellitus with other diabetic kidney complication E11.29 [place] [facility] [id number] [place] [address] Apr, Type 2 diabetes mellitus with other diabetic kidney complication E11.29 [facility] [id number] [place] [address] Apr, Essential hypertension I10 [place] [facility] [id number] [place] [address] Apr, Gastroesophageal reflux disease without esophagitis K21.9 [place] [id number] [place] [address] Apr, Type 2 diabetes mellitus with other diabetic kidney complication E11.29 [place] [id number] [place] [address] Apr, Type 2 diabetes mellitus with other diabetic kidney complication E11.29 and 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 [facility] [address] [place] [address] 27 Mar, 2017 Encounter for immunization Z23 and Preoperative examination Z01.818 [facility] [id number] [place] [address] Mar, [facility] [id number] [place] [address] Mar, Type 2 diabetes mellitus with other diabetic kidney complication E11.29 [place] [id number] [place] [address] 08 Mar, 2017 Type 2 diabetes mellitus with other diabetic kidney complication E11.29 [place] [id number] [place] [address] Mar, Gastroesophageal reflux disease without esophagitis K21.9 [place] [id number] [place] [address] Mar, Essential hypertension I10 [place] [id number] [place] [address] Feb, 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 [facility] [id number] [place] [address] Feb, Type 2 diabetes mellitus with other diabetic kidney complication E11.29 [facility] [id number] [place] [address] Feb, Type 2 diabetes mellitus with other diabetic kidney complication E11.29 [place] [id number] [place] [address] Feb, Type 2 diabetes mellitus with other diabetic kidney complication E11.29 [place] [id number] [place] [address] Feb, Gastroesophageal reflux disease without esophagitis K21.9 [facility] [id number] [place] [address] Feb, Type 2 diabetes mellitus with other diabetic kidney complication E11.29 [facility] [address], [place] [address] Feb, shelter current use of anticoagulant Z79.01 [facility] [address], [place] [address] Jan, Type 2 diabetes mellitus with other diabetic kidney complication E11.29 [facility] [address], [place] [address] Jan, Type 2 diabetes mellitus with other diabetic kidney complication E11.29 [facility] [address], [place] [address] Jan, Chronic pain syndrome G89.4 [facility] [address], [place] [address] Jan, [facility] [address], [place] [address] Jan, [facility] [address], [place] [address] Jan, [facility] [address] [place] [address] Jan, [facility] [address], [place] [address] Jan, Primary insomnia F51.01 ; Type 2 diabetes mellitus with other diabetic kidney complication E11.29 ; Chronic pain syndrome G89.4 and Essential hypertension I10 [facility] [address], [place] [address] Jan, Primary insomnia F51.01 [facility] [address], [place] [address] Jan, Type 2 diabetes mellitus with other diabetic kidney complication E11.29 [facility] [address], [place] [address] Jan, [facility] [id number] [place] [address] Jan, Chronic obstructive pulmonary disease, unspecified COPD type J44.9 [facility] [id number] [place] [address] Jan, Essential hypertension I10 ; Type 2 diabetes mellitus with other diabetic kidney complication E11.29 ; Chronic obstructive pulmonary disease, unspecified COPD type J44.9 ; Chronic kidney disease, stage 4 (severe) N18.4 ; Right carpal tunnel syndrome G56.01 ; 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 ; shelter (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 and Diabetic polyneuropathy associated with type 2 diabetes mellitus E11.42 [place] [id number] [place] [address] Jan, Gastroesophageal reflux disease without esophagitis K21.9 [place] [facility] [id number] [place] [address] Dec, [facility] [id number] [place] [address] Dec, [facility] [id number] [place] [address] Dec, shelter current use of anticoagulant Z79.01 ; Chronic pain syndrome G89.4 and Essential hypertension I10 [facility] [id number] [place] [address] Dec, [facility] [id number] [place] [address] Dec, Type 2 diabetes mellitus with other diabetic kidney complication E11.29 [facility] [address] [address] Dec, [facility] [id number] [place] [address] Dec, Gastroesophageal reflux disease without esophagitis K21.9 [facility] [address] [place] [address] November, Type 2 diabetes mellitus with other diabetic kidney complication E11.29 [facility] [address], [place] [address] November, [facility] [id number] [place] [address] November, Type 2 diabetes mellitus with other diabetic kidney complication E11.29 [facility] [id number] [place] [address] November, [facility] [address] [place] [address] November, Type 2 diabetes mellitus with other diabetic kidney complication E11.29 [facility] [id number] [place] [address] November, [facility] [id number] [place] [address] Oct, Essential hypertension I10 [facility] [address] [place] [address] Oct, Psoriasis of scalp L40.9 [facility] [address] [place] [address] Oct, Essential hypertension I10 and Chronic pain syndrome G89.4 [facility] [address], [place] [address] Oct, [facility] [address], [place] [address] Sep, Type 2 diabetes mellitus with other diabetic kidney complication E11.29 [facility] [address], [place] [address] Sep, [facility] [id number] [place] [address] Sep, Type 2 diabetes mellitus with other diabetic kidney complication E11.29 [facility] [address], [place] [address] 20 Mar, 2017 Type 2 diabetes mellitus with other diabetic kidney complication E11.29 [place] [id number] [place] [address] 09 Sep, 2017 Type 2 diabetes mellitus with other diabetic kidney complication E11.29 ; Chronic kidney disease, stage 4 (severe) N18.4 ; Chronic obstructive pulmonary disease, unspecified COPD type J44.9 ; Iron deficiency anemia due to chronic blood loss D50.0 ; shelter current use of anticoagulant Z79.01 ; Gastroesophageal reflux disease without esophagitis K21.9 ; Essential hypertension I10 ; Primary insomnia F51.01 ; Depression, unspecified depression type F32.9 ; Chronic pain syndrome G89.4 ; Wrist pain, right M25.531 ; Paresthesia of right upper extremity R20.2 and Psoriasis of scalp L40.9 [place] [address] [place] [address] Sep, [address] [address] Aug, Essential hypertension I10 [place] [facility] [address] [address] Aug, History of DVT (deep vein thrombosis) Z86.718 [place] [id number] [place] [address] Aug, [place] [id number] [place] [address] Jul, [place] [facility] [id number] [place] [address] Jul, [place] [facility] [address] [place] [address] Jul, shelter current use of anticoagulant Z79.01 ; Chronic pain syndrome G89.4 and Chronic kidney disease, stage 4 (severe) N18.4 [place] [address] [place] [address] Jul, [place] [address] [place] [address] Jul, [place] [address] [place] [address] Jul, [place] [id number] [place] [address] Jul, [place] [address] [place] [address] Jul, [place] [facility] [address] [place] [address] Jul, Type 2 diabetes mellitus with other diabetic kidney complication E11.29 [id number] [place] [address] Jul, History of DVT (deep vein thrombosis) Z86.718 [place] [id number] [place] [address] Jun, [place] [address] [place] [address] Jun, History of DVT (deep vein thrombosis) Z86.718 [id number] [place] [address] 15 Jun, 2016 Post traumatic stress disorder (PTSD) F43.10 [place] [id number] [place] [address] 07 Jun, 2016 Type 2 diabetes mellitus with other diabetic kidney complication E11.29 ; Diabetic polyneuropathy associated with type 2 diabetes mellitus E11.42 ; Iron deficiency anemia due to chronic blood loss D50.0 ; Chronic obstructive pulmonary disease, unspecified COPD type J44.9 ; shelter current use of anticoagulant Z79.01 ; History [...] wrist pain M25.531 [facility] [id number] [place] [address] May, [facility] [id number] [place] [address] May, [facility] [address] [address] May, [facility] [id number] [place] [address] May, [facility] [id number] [place] [address] May, Anemia in other chronic diseases classified elsewhere D63.8 [facility] [address] [address] May, [facility] [id number] [place] [address] Apr, [facility] [id number] [place] [address] 27 Mar, 2016 Dermatofibroma D23.9 [facility] [id number] [place] [address] 20 Mar, 2016 [facility] [id number] [place] [address] 14 Mar, 2016 Chronic pain syndrome G89.4 [facility] [id number] [place] [address] 09 Mar, 2016 [facility] [id number] [place] [address] 07 Mar, 2016 [facility] [id number] [place] [address] 06 Mar, 2016 [facility] [address] [id number] [address] Feb, [facility] [id number] [place] [address] Feb, [facility] [id number] [place] [address] Feb, [facility] [id number] [place] [phone] Feb, [facility] [id number] [place] [id number] Feb, [facility] [id number] [place] [phone] Feb, [facility] [id number] [place] [phone] Feb, Type 2 diabetes mellitus with other diabetic kidney complication E11.29 ; Diabetic polyneuropathy associated with type 2 diabetes mellitus E11.42 ; Iron deficiency anemia due to chronic blood loss D50.0 ; Chronic obstructive pulmonary disease, unspecified COPD type J44.9 ; remote computer terminal 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 [...] N18.4 [facility] [id number] [address] Feb, Skin tags, multiple acquired L91.8 [facility] [id number] [place] [phone] Jan, [facility] [address] [id number] [id number] Jan, Dental examination Z01.20 [facility] [id number] [place] [address] Jan, [facility] [address] [place] [id number] [place] [address] Jan, Type 2 diabetes mellitus with other diabetic kidney complication E11.29 ; Diabetic polyneuropathy associated with type 2 diabetes mellitus E11.42 ; Iron deficiency anemia due to chronic blood loss D50.0 ; Chronic obstructive pulmonary disease, unspecified COPD type J44.9 ; remote computer terminal 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 [...] Renal failure, chronic, stage 4 (severe) N18.4 [id number] [place] [address] Dec, Diabetes type 2, uncontrolled E11.65 [id number] [place] [address] Dec, [id number] [place] [address] Dec, Type 2 diabetes mellitus with other diabetic kidney complication E11.29 ; Diabetic polyneuropathy associated with type 2 diabetes mellitus E11.42 ; Iron deficiency anemia due to chronic blood loss D50.0 ; Chronic obstructive pulmonary disease, unspecified COPD type J44.9 ; 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 ; History of DVT (deep vein thrombosis) Z86.718 ; Chronic pain syndrome G89.4 ; Oxygen desaturation during sleep G47.34 ; Sleep apnea in adult G47.33 ; Gastroesophageal reflux disease without esophagitis K21.9 ; Essential hypertension I10 ; Primary insomnia F51.01 and Depression, unspecified depression type F32.9 [facility] [address] [id number] [id number] Dec, Dental caries K02.9 [facility] [address] [id number] [place] [address] [id number] Dec, [facility] [address] [id number] [place] [id number] Dec, Dental examination Z01.20 [facility] [address] [id number] [place] [id number] November, Dental examination Z01.20 and Dental caries K02.9 [facility] [address] [id number] [place] [id number] Oct, [facility] [address] [id number] [place] [address] [id number] Oct, [facility] [address] [id number] [place] [id number] Sep, [facility] [address] [id number] [place] [address] [id number] Sep, [facility] [address] [id number] [place] [address] [id number] Sep, [facility] [address] [id number] [place] [address] [id number] Sep, Other chronic pain 338.29 [facility] [address] [id number] [place] [id number] Aug, Diabetes type 2, uncontrolled E11.65 and Morbid obesity due to excess calories E66.01 [facility] [address] [id number] [place] [id number] Aug, Hair loss L65.9 [facility] [address] [id number] [place] [id number] Aug, [facility] [address] [id number] [place] [id number] Jul, [facility] [address] [id number] [place] [id number] Jul, [facility] [address] [id number] [place] [address] [id number] Jun, [facility] [address] [id number] [place] [address] [id number] Jun, Hair loss L65.9 and Disorder of the skin and subcutaneous tissue, unspecified L98.9 [id number] [place] [address] [id number] May, Type 2 diabetes mellitus with other diabetic kidney complication E11.29 ; Type 2 diabetes mellitus with hyperglycemia E11.65 ; Morbid obesity due to excess calories E66.01 and Essential hypertension I10 [id number] [place] [address] [id number] May, Diabetes type 2, uncontrolled E11.65 ; Encounter for immunization Z23 and Morbid obesity due to excess calories E66.01 [id number] [place] [address] [id number] May, [facility] [address] [address] Apr, [address] [id number] Apr, Hyperglycemia R73.[address] [id number] Apr, [address] [id number] Apr, Depression F32.9 ; Encounter for immunization Z23 ; Hyperglycemia R73.9 and Anemia in other chronic diseases classified elsewhere D63.8 [facility] [place] [address] [place] [address] [id number] Mar, [id number] [place] [address] [id number] Feb, Positive occult stool blood test 792.1 [id number] [place] [address] [id number] Feb, Depression 311 ; Other chronic pain 338.29 and Diabetes with renal manifestations, type II or unspecified type, not stated as uncontrolled 250.40 [facility] [id number] [place] [address] Feb, Occult blood in stools 792.1 [id number] [place] [address] [id number] Feb, Anemia 285.9 ; Occult blood positive stool 792.1 ; Unspecified essential hypertension 401.9 and Other chronic pain 338.29 [facility] [place] [id number] [place] [id number] Feb, [facility] [place] [id number] [place] [address] [id number] Feb, Anemia 285.9 [facility] [place] [id number] [place], [place] [id number] Feb, [facility] [place] [id number] [place] [address] [id number] Feb, [facility] [place] [id number] [place] [address] [id number] Feb, Diabetes with renal manifestations, type II or unspecified type, not stated as uncontrolled 250.40 ; Other chronic pain 338.29 ; Unspecified essential hypertension 401.9 ; Anemia 285.9 and Depression 311 [facility] [place] [id number] [place] [address] [id number] Jan, [facility] [id number] [place] [address] [id number] Jan, Anemia 285.9 and Follow up V67.9 [facility] [place] [id number] [place], [place] [id number] Jan, [facility] [id number] [place] [address] [id number] Jan, [facility] [place] [id number] [place] [address] [id number] Jan, [facility] [id number] [place] [address] [id number] Dec, [facility] [address]00565100[place], [place] [address] Oct, [facility] [id number] [place] [address] Oct, [facility] [id number] [place] [address] Sep, [facility] [address] [id number] [place] [id number] Sep, [facility] [id number] [place] [address] Sep, [facility] [place] [address] [id number] [place] [id number] Aug, [facility] [place] [facility] [address] [facility] [id number] [address] Aug, [facility] [place] [facility] [address] [facility] [id number], [place] [address] Aug, [facility] [place] [address] [id number] [place] [id number] Aug, [facility] [place] [facility] [address] [facility] [id number] [place] [address] Aug, [facility] [place] [facility] [address] [id number], [place] [address] Aug, [facility] [place] [address] [id number] [place] [id number] Aug, [facility] [place] [facility] [address]00565[address], [place] [address] Aug, [facility] [place] [address] [facility] [id number] [place] [id number] Jul, [facility] [place] [facility] [address]00565[address], [place] [address] Jul, [facility] [place] [facility] [address] [id number], [place] [address] Jul, [facility] [address] [id number] [place] [id number] Jul, [facility] [place] [facility] [address] [facility] [id number], [place] [address] Jul, [facility] [place] [address] [facility] [id number] [place] [id number] Jul, [facility] [place] [facility] [address] [facility] [id number], [place] [address] Jul, [facility] [address] [id number] [place] [id number] Jun, [facility] [address] [facility] [id number] [place] [id number] Jun, [facility] [place] [facility] [address] [facility] [id number] [place] [address] Jun, [facility] [place] [facility] [address] [facility] [id number] [place] [address] Jun, [facility] [place] [address] [facility] [id number] [place] [id number] Jun, [facility] [place] [facility] [address] [facility] [id number], [place] [address] Jun, [facility] [place] [address] [facility] [id number] [place] [id number] May, [facility] [place] [facility] [address] [id number], [place] [address] May, [facility] [place] [facility] [address]00565[address], [place] [address] May, [facility] [place] [address] [facility] [id number] [place] [id number] Apr, [facility] [place] [facility] [address] [facility] [id number], [place] [address] Apr, [facility] [place] [address] [facility] [id number] [place] [id number] Apr, [facility] [place] [address] [facility] [id number] [place] [id number] Apr, [facility] [place] [facility] [address] [facility] [id number], [place] [address] Apr, [facility] [place] [facility] [address] [facility] [id number], [place] [address] Apr, [facility] [place] [address] [facility] [id number] [place] [id number] Mar, [facility] [place] [facility] [address] [facility] [id number], [place] [address] Mar, [facility] [place] [address] [facility] [id number] [place] [id number] Mar, [facility] [place] [facility] [address] [id number] [place] [address] Mar, [facility] [address] [id number] [place] [id number] Mar, [facility] [place] [facility] [address] [facility] [id number] [place] [address] Mar, [facility] [address] [id number] [place] [id number] Mar, [facility] [place] [facility] [address] [id number] [place] [address] Mar, [facility] [address] [id number] [place] [id number] Mar, [facility] [place] [facility] [address] [facility] [id number] [place] [address] Mar, [facility] [place] [address] [facility] [id number] [place] [id number] Feb, [facility] [place] [facility] [address] [facility] [id number], [place] [address] Feb, [facility] [place] [address] [facility] [id number] [place] [id number] Jan, [facility] [place] [facility] [address] [facility] [id number], [place] [address] Jan, [facility] [place] [address] [facility] [id number] [place] [id number] Jan, [facility] [place] [facility] [address] [facility] [id number], [place] [address] Jan, [facility] [place] [address] [facility] [id number] [place] [id number] Jan, [facility] [place] [facility] [address] [facility] [id number] [place] [address] Jan, [facility] [place] [facility] [address] [facility] [id number], [place] [address] Dec, [facility] [place] [facility] [address] [facility] [id number], [place] [address] Dec, [facility] [address] [id number] [place] [id number] November, [facility] [place] [facility] [address] [id number] [place] [address] November, [facility] [address] [id number] [place] [id number] November, [facility] [place] [facility] [address] [id number] [place] [address] November, [facility] [address] [id number] [place] [id number] Oct, [facility] [place] [facility] [address] [id number] [place] [address] Oct, [facility] [place] [facility] [address] [facility] [id number] [place] [address] Oct, [facility] [place] [facility] [address] [facility] [id number] [place] [address] Oct, [facility] [place] [facility] [address] [id number] [place] [address] Oct, [facility] [place] [facility] [address] [facility] [id number] [place] [address] Oct, [facility] [address] [id number] [place] [id number] Sep, [facility] [address] [id number] [place] [id number] Sep, [facility] [place] [facility] [address] [id number] [place] [address] Sep, [facility] [place] [facility] [address] [id number] [place] [address] Sep, [facility] [address] [id number] [place] [id number] Sep, [facility] [place] [facility] [address] [facility] [id number] [place] [address] Sep, [facility] [place] [facility] [address] [facility] [id number], [place] [address] Aug, [facility] [place] [facility] [address] [facility] [id number], [place] [address] Aug, [facility] [place] [address] [facility] [id number] [place] [id number] Aug, [facility] [address] [facility] [id number] [place] [id number] Aug, [facility] [place] [facility] [address] [facility] [id number], [place] [address] Aug, [facility] [address] [facility] [id number] [place] [id number] Aug, [facility] [place] [facility] [address]00565100[place], [place] [address] Aug, [facility] [place] [address] [id number] [place] [id number] Aug, [facility] [place] [facility] [address]00565100[place], [place] [address] Aug, [facility] [address] [facility] [id number] [place] [id number] Aug, [facility] [place] [facility] [address]00565100[place], [place] [address] Aug, [facility] [place] [address] [id number] [place] [id number] Aug, [facility] [place] [facility] [address]00565100[place], [place] [address] Aug, [facility] [place] [facility] [address] [facility] [id number], [place] [address] Jul, [facility] [place] [address] [facility] [id number] [place] [id number] Jun, [facility] [place] [facility] [address] [id number], [place] [address] Jun, [facility] [place] [facility] [address]00565100[place], [place] [address] Jun, [facility] [place] [facility] [address] [id number] [place] [address] Jun, [facility] [place] [address] [facility] [id number] [place], [place] [id number] Jun, [facility] [place] [facility] [address] [id number] [place] [address] Jun, [facility] [place] [facility] [address] [facility] [id number], [place] [address] Jun, [facility] [place] [address] [facility] [id number] [place] [id number] Jun, [facility] [place] [facility] [address] [facility] [id number], [place] [address] Jun, [facility] [place] [facility] [address] [id number], [place] [address] May, [facility] [place] [address] [id number] [place] 412062476 May, [facility] [place] [facility] [address] [id number], [place] [address] May, [facility] [place] [facility] [address] [id number], [place] [address] May, [facility] [place] [facility] [address] [id number], [place] [address] May, [facility] [place] [facility] [address] [facility] [id number], [place] [address] May, [facility] [place] [address] [facility] [id number] [place] [id number] May, [facility] [place] [facility] [address] [facility] [id number], [place] [address] May, [facility] [place] [address] [facility] [id number] [place] [id number] May, [facility] [place] [facility] [address] [facility] [id number], [place] [address] May, [facility] [place] [address] [facility] [id number] [place] 567885280 Apr, [facility] [place] [facility] [address] [facility] [id number], [place] [address] Apr, [facility] [place] [facility] [address] [facility] [id number], [place] [address] Apr, [facility] [place] [address]00565100[place] [id number] Apr, [facility] [place] [facility] [address] [facility] [id number], [place] [address] Apr, [facility] [place] [facility] [address]00565100[place], [place] [address] Apr, [facility] [place] [id number] [place], [place] [id number] Apr, [facility] [place] [facility] [address]00565100[place], [place] [address] Apr, [facility] [place] [facility] [address] [facility] [id number], [place] [address] Apr, [facility] [place] [facility] [address]00565100[place], [place] [address] Apr, [facility] [place] [id number] [place] 590832122 Apr, [facility] [place] [facility] [address] [facility] [id number], [place] [address] Apr, [facility] [place] [id number] [place], [place] [id number] Apr, [facility] [place] [facility] [address] [facility] [id number], [place] [address] Apr, [facility] [place] [address] [facility] [id number] [place] [id number] Apr, [facility] [place] [facility] [address]00565100[place], [place] [address] Apr, [facility] [place] [facility] [address] [facility] [id number], [place] [address] Apr, [facility] [address] [facility] [id number], [place] [address] Apr, [facility] [place] [address] [id number] [place] [id number] Apr, [facility] [address] [facility] [id number], [place] [address] Mar, [facility] [address] [facility] [id number], [place] [address] Mar, [facility] [place] [address] [id number] [place] [id number] Mar, [facility] [address] [id number] [place] [id number] Mar, [facility] [address] [id number] [place] [id number] Mar, [facility] [address] [id number] [place] 946379389 Feb, [facility] [address] [id number] [place] [id number] Feb, [facility] [address] [id number] [place] [id number] Feb, [facility] [address] [facility] [id number], [place] [address] Feb, [facility] [place] [address] [id number] [place] 391132635 Feb, [facility] [address] [id number] [place] 208788991 Feb, [facility] [address] [id number] [place] [id number] Feb, [facility] [address] [id number] [place] 847069996 Feb, [facility] [address] [id number] [place] 330625937 Feb, [facility] [place] [address] [id number] [place] [id number] Jan, [facility] [place] [address] [id number] [place] [id number] Jan, [facility] [place] [address] [id number] [place] 116093687 Jan, [facility] [place] [address] [id number] [place] [id number] Jan, [facility] [place] [address] [id number] [place] [id number] Jan, [facility] [address]00565100[place], [place] [address] Jan, [facility] [place] [address] [id number] [place] [id number] Jan, [facility] [place] [address] [id number] [place] [id number] Jan, [facility] [place] [address] [id number] [place] [id number] Dec, [facility] [place] [address] [id number] [place] [id number] November, [facility] [place] [address] [id number] [place] [id number] November, [facility] [place] [address] [id number] [place] [id number] November, [facility] [place] [address] [id number] [place] [id number] November, [facility] [place] [address] [id number] [place] [id number] November, [facility] [place] [address] [id number] [place] [id number] November, [facility] [place] [address] [id number] [place] [id number] Jul, [facility] [place] [address] [id number] [place] [id number] Jul, [facility] [place] [address] [id number] [place] [id number] Jul, [facility] [place] [address] [id number] [place] [id number] Jun, [facility] [address], [place] [address] Jun, [facility] [place] [address] [id number] [id number] May, [facility] [address] [facility] [id number] [address] May, [facility] [place] [address] [id number] [place] [id number] May, [facility] [address] [facility] [id number], [place] [address] May, [facility] [place] [address] [id number] [place] [id number] May, [facility] [address] [facility] [id number], [place] [address] May, [facility] [place] [address] [facility] [id number] [id number] Apr, [facility] [id number], [place] [address] Apr, [facility] [address] [facility] [id number], [place] [address] 18 Apr, 2012 [facility] [place] [address] [id number] [id number] Apr, [facility] [place] [address] [id number] [id number] Apr, [facility] [address] [facility] [id number], [place] [address] Apr, [facility] [address] [facility] [id number], [place] [address] Apr, [facility] [place] [address] [id number] [place] [id number] Apr, [facility] [address] [facility] [id number], [place] [address] 10 Apr, 2012 [facility] [place] [address] [id number] [place] [id number] 09 Apr, 2012 [facility] [place] [address] [id number] [place] [id number] Apr, [facility] [place] [address] [id number] [place] [id number] Mar, [facility] [place] [address] [id number] [place] [id number] Feb, [facility] [place] [address] [id number] [place] [id number] Jan, [facility] [place] [address] [id number] [place] [id number] Dec, [facility] [place] [address] [id number] [place] [id number] Dec, [facility] [place] [address] [id number] [place] [id number] Dec, [facility] [place] [address] [id number] [place] [id number] Dec, [facility] [place] [address] [id number] [place] [id number] Dec, [facility] [place] [address] [id number] [place] [id number] November, [facility] [place] [address] [id number] [place] [id number] November, [facility] [place] [address] [id number] [place] [id number] November, [facility] [address] [facility] [id number], [place] [address] November, [facility] [place] [address] [id number] [place] [id number] November, [facility] [place] [address] [id number] [place] [id number] November, [facility] [place] [address] [id number] [place] [id number] Oct, [facility] [place] [address] [id number] [place] [id number] Oct, [facility] [place] [address] [id number] [place] [id number] Oct, [facility] [place] [address] [id number] [place] [id number] Oct, [facility] [place] [address] [id number] [place] [id number] Oct, [facility] [place] [address] [id number] [place] [id number] Oct, [facility] [place] [address] [id number] [place] [id number] Sep, [facility] [place] [address] [id number] [place] [id number] Aug, [facility] [place] [address] [id number] [place] [id number] Aug, [facility] [place] [address] [id number] [place] [id number] Jul, [facility] [address] [facility] [id number], [place] [address] Jun, [facility] [address] [id number] [address] Jun, [facility] [id number] [id number] Jun, [facility] [place] [facility] [id number] [address] Jun, [facility] [place] [facility] [id number], [place] [address] May, [facility] [place] [facility] [id number], [place] [address] May, [facility] [place] [facility] [id number], [place] [address] Apr, [facility] [place] [facility] [id number], [place] [address] Apr, [facility] [place] [facility] [id number], [place] [address] Apr, [facility] [place] [facility] [id number], [place] [address] Feb, [facility] [place] [facility] [id number] [place] [address] 15 Aug, 2010 [facility] [address] [id number] [place] [address] 18 Jul, 2010 [facility] [place] [facility] [address] [id number] [place] [address] 30 Jun, 2010 [facility] [address] [id number] [place] [address] 29 May, 2010 [facility] [place] [facility] [address] [id number] [place] [address] May, [facility] [address] [id number] [place] [address] May, [facility] [address] [facility] [id number] [place] [address] May, [facility] [address] [facility] [id number] [place] [address] May, [facility] [address] [id number] [place] [address] 16 Aug, 2009 [facility] [address] [facility] [id number] [place] [address] Jun, [facility] [address] [facility] [id number] [place] [address] Jun, [facility] [place] [facility] [address] [facility] [id number] [place] [address] Jun, [facility] [place] [facility] [address] [id number] [place] [address] 24 May, 2009 [facility] [place] [facility] [address] [id number] [place] [address] 28 Apr, 2009 [facility] [place] [facility] [address] [facility] [id number] [place] [address] Apr, [facility] [place] [facility] [address] [facility] [id number] [place] [address] Apr, [facility] [address] [facility] [id number], [place] [address] Jan, [facility] [address] [facility] [id number], [place] [address] Oct, [facility] [address] [facility] [id number], [place] [address] May, [facility] [address] [facility] [id number] [address] May, IMMUNIZATIONS No Known Immunizations SOCIAL HISTORY Never Assessed REASON FOR VISIT EMR-[facility] [place] PLAN OF CARE VITAL SIGNS MEDICATIONS Unknown [...] Dialysis Ruthy Reveles 2012 -Dr. Simon now [facility] Medical History Colonoscopy (polyps 2 ) [...]
--- OUTSIDE RECORDS SUMMARY | 2018-12-28 17:38 | XMS REPORT ---
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 Active 584514783 Problem Chronic pain syndrome G89.4 Active 834580959 Problem Sleep apnea in adult G47.33 Active 00224017 Problem Diabetic polyneuropathy associated with type 2 diabetes mellitus E11.42 Active 31243696 Problem Primary insomnia F51.01 Active 5316924 Problem Chronic obstructive pulmonary disease, unspecified COPD type J44.9 Active 43765021 Problem Right carpal tunnel syndrome G56.01 Active 987630203819858 Problem Gastroesophageal reflux disease without esophagitis K21.9 Active 684287080 Problem 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 Active 863708999444011 Problem Chronic kidney disease, stage 4 (severe) N18.4 Active 926989701 Problem Type 2 diabetes mellitus with hyperglycemia E11.65 Active 230112018243004 Problem Psoriasis of scalp L40.9 Active 389197786 Problem Carpal tunnel syndrome, bilateral G56.03 Active 86259795807412939 Problem Depression, unspecified depression type F32.9 Active 60199477 Problem Type 2 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.29 Active 122714143 Problem Fibromyalgia M79.7 Active 507760848 Problem Oxygen desaturation during sleep G47.34 Active 355658369 Problem Anemia in other chronic diseases classified elsewhere D63.8 Active 692317261 Problem History of DVT (deep vein thrombosis) Z86.718 Active 719393473 Problem Paresthesia of right upper extremity R20.2 Active 64364200 Problem USP 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 Active 955158276 Problem Supplemental oxygen dependent Z99.81 Active 089568204926 Problem Bilateral lower extremity edema R60.0 Active 828985429 ALLERGIES No Information ENCOUNTERS Encounter Location Date Diagnosis [facility] [address], [place] [address] Apr, [facility] [address], [place] [address] Feb, [facility] [address] [place] [address] Feb, [facility] [address], [place] [address] Jan, [facility] [address], [place] [address] Jan, [facility] [address] [place] [address] Jan, [address] [id number] Jan, [facility] [address], [place] [address] Jan, [facility] [address], [place] [address] Jan, [facility] [address], [place] [address] Jan, Essential hypertension I10 [facility] [address], [place] [address] Jan, Chronic obstructive pulmonary disease, unspecified COPD type J44.9 [facility] [id number], [place] [address] Jan, [facility] [id number], [place] [address] Jan, [facility] [id number], [place] [address] Jan, Type 2 diabetes mellitus with other diabetic kidney complication E11.29 ; Anemia in other chronic diseases classified elsewhere D63.8 ; Chronic obstructive pulmonary disease, unspecified COPD type J44.9 and BMI 60.0-69.9, adult Z68.44 [facility] [id number] [address] Jan, [facility] [id number] [place] [address] Jan, [facility] [id number] [id number] Jan, [facility] [id number] [place] [id number] Dec, [facility] [id number] [place] [id number] Dec, [facility] [address] [place] [id number] Dec, Essential hypertension I10 ; Type 2 diabetes mellitus with other diabetic kidney complication E11.29 ; Depression, unspecified depression type F32.9 ; Supplemental oxygen dependent Z99.81 ; Chronic pain syndrome G89.4 ; Fibromyalgia M79.7 ; Carpal tunnel syndrome, bilateral G56.03 and Chronic kidney disease, stage 4 (severe) N18.4 [facility] [id number] [place] [address] Dec, Essential hypertension I10 [facility] [id number] [place] [address] November, Type 2 diabetes mellitus with other diabetic kidney complication E11.29 [facility] [id number] [place] [address] November, Chronic pain syndrome G89.4 [facility] [address], [place] [address] November, [facility] [id number] [place] [address] November, [facility] [id number] [place] [address] November, [facility] [address] [place] [address] Oct, Type 2 diabetes mellitus with other diabetic kidney complication E11.29 [place] [address], [place] [address] Oct, Primary insomnia F51.01 [facility] [id number] [id number] Oct, Bilateral lower extremity edema R60.0 [place] [facility] [address] [place] [address] Oct, [place] [facility] [address] [place] [address] Sep, Type 2 diabetes mellitus with other diabetic kidney complication E11.29 and Chronic obstructive pulmonary disease, unspecified COPD type J44.9 [facility] [facility] [address] [place] [address] 15 Aug, 2017 Type 2 diabetes mellitus with other diabetic kidney complication E11.29 [address] [place] [address] 12 Aug, 2017 Gastroesophageal reflux disease without esophagitis K21.9 ; USP current use of anticoagulant Z79.01 ; Chronic pain syndrome G89.4 ; Essential hypertension I10 and Type 2 diabetes mellitus with other diabetic kidney complication E11.29 [facility] [facility] [address], [place] [address] 08 Aug, 2017 Chronic pain syndrome G89.4 [facility] [facility] [address], [place] [address] Aug, Type 2 diabetes mellitus with other diabetic kidney complication E11.29 [facility] [address], [place] [address] Jul, Diabetic polyneuropathy associated with type 2 diabetes mellitus E11.42 [facility] [address], [place] [address] Jul, Primary insomnia F51.01 [facility] [address], [place] [address] Jul, [place] [address], [place] [address] Jul, Type 2 diabetes mellitus with other diabetic kidney complication E11.29 and Chronic obstructive pulmonary disease, unspecified COPD type J44.9 [facility] [address], [place] [address] 08 Jul, 2017 Type 2 diabetes mellitus with other diabetic kidney complication E11.29 [facility] [id number] [place] [address] Jun, Type 2 diabetes mellitus with other diabetic kidney complication E11.29 [facility] [id number] [place] [address] 27 Jun, 2017 [facility] [id number] [place] [address] Jun, Chronic obstructive pulmonary disease, unspecified COPD type J44.9 [facility] [id number] [place] [address] May, Type 2 diabetes mellitus with other diabetic kidney complication E11.29 [facility] [address], [place] [address] May, 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 and Essential hypertension I10 [facility] [id number] [place] [address] May, Anemia in other chronic diseases classified elsewhere D63.8 ; Chronic obstructive pulmonary disease, unspecified COPD type J44.9 ; Oxygen desaturation during sleep G47.34 ; Sleep apnea in adult G47.33 and Supplemental oxygen dependent Z99.[address] [place] [address] May, Type 2 diabetes mellitus with other diabetic kidney complication E11.29 ; Essential hypertension I10 ; Chronic pain syndrome G89.4 ; BMI 40.0- 44.9, adult Z68.41 ; Gastroesophageal reflux disease without esophagitis K21.9 ; 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 ; 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 ; Diabetic polyneuropathy associated with type 2 diabetes mellitus E11.42 ; Edema of both legs R60.0 and Supplemental oxygen dependent Z99.81 [place] [facility] [address] [address] May, [facility] [facility] [id number] [place] [address] May, Essential hypertension I10 and Gastroesophageal reflux disease without esophagitis K21.9 [place] [facility] [address] [address] May, [place] [facility] [address] [address] May, Type 2 diabetes mellitus with other diabetic kidney complication E11.29 and USP current use of anticoagulant Z79.01 [facility] [id number] [place] [address] Apr, Chronic pain syndrome G89.4 and Essential hypertension I10 [facility] [id number] [place] [address] Apr, Type 2 diabetes mellitus with other diabetic kidney complication E11.29 [facility] [id number] [place] [address] Apr, Type 2 diabetes mellitus with other diabetic kidney complication E11.29 [facility] [id number] [place] [address] Apr, Essential hypertension I10 [facility] [id number] [place] [address] Apr, Gastroesophageal reflux disease without esophagitis K21.9 [facility] [id number] [place] [address] Apr, Type 2 diabetes mellitus with other diabetic kidney complication E11.29 [facility] [id number] [place] [address] Apr, Type 2 diabetes mellitus with other diabetic kidney complication E11.29 and 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 [facility] [address] [place] [address] 27 Mar, 2017 Encounter for immunization Z23 and Preoperative examination Z01.818 [facility] [id number] [place] [address] Mar, [facility] [id number] [place] [address] Mar, Type 2 diabetes mellitus with other diabetic kidney complication E11.29 [place] [facility] [id number] [place] [address] 08 Mar, 2017 Type 2 diabetes mellitus with other diabetic kidney complication E11.29 [facility] [id number] [place] [address] Mar, Gastroesophageal reflux disease without esophagitis K21.9 [place] [facility] [id number] [place] [address] Mar, Essential hypertension I10 [place] [id number] [place] [address] Feb, 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 [facility] [id number] [place] [address] Feb, Type 2 diabetes mellitus with other diabetic kidney complication E11.29 [facility] [id number] [place] [address] Feb, Type 2 diabetes mellitus with other diabetic kidney complication E11.29 [facility] [id number] [place] [address] Feb, Type 2 diabetes mellitus with other diabetic kidney complication E11.29 [place] [facility] [id number] [place] [address] Feb, Gastroesophageal reflux disease without esophagitis K21.9 [facility] [id number] [place] [address] Feb, Type 2 diabetes mellitus with other diabetic kidney complication E11.29 [facility] [address], [place] [address] Feb, USP current use of anticoagulant Z79.01 [facility] [address], [place] [address] Jan, Type 2 diabetes mellitus with other diabetic kidney complication E11.29 [facility] [id number], [place] [address] Jan, Type 2 diabetes mellitus with other diabetic kidney complication E11.29 [facility] [address], [place] [address] Jan, Chronic pain syndrome G89.4 [facility] [address], [place] [address] Jan, [facility] [id number], [place] [address] Jan, [facility] [address], [place] [address] Jan, [facility] [address] [place] [address] Jan, [facility] [address], [place] [address] Jan, Primary insomnia F51.01 ; Type 2 diabetes mellitus with other diabetic kidney complication E11.29 ; Chronic pain syndrome G89.4 and Essential hypertension I10 [facility] [address], [place] [address] Jan, Primary insomnia F51.01 [facility] [address], [place] [address] Jan, Type 2 diabetes mellitus with other diabetic kidney complication E11.29 [facility] [address], [place] [address] Jan, [facility] [id number] [place] [address] Jan, Chronic obstructive pulmonary disease, unspecified COPD type J44.9 [facility] [id number] [place] [address] Jan, Essential hypertension I10 ; Type 2 diabetes mellitus with other diabetic kidney complication E11.29 ; Chronic obstructive pulmonary disease, unspecified COPD type J44.9 ; Chronic kidney disease, stage 4 (severe) N18.4 ; Right carpal tunnel syndrome G56.01 ; 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 ; USP (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 and Diabetic polyneuropathy associated with type 2 diabetes mellitus E11.42 [place] [id number] [place] [address] Jan, Gastroesophageal reflux disease without esophagitis K21.9 [place] [facility] [id number] [place] [address] Dec, [facility] [id number] [place] [address] Dec, [facility] [id number] [place] [address] Dec, USP current use of anticoagulant Z79.01 ; Chronic pain syndrome G89.4 and Essential hypertension I10 [facility] [id number] [place] [address] Dec, [facility] [id number] [place] [address] Dec, Type 2 diabetes mellitus with other diabetic kidney complication E11.29 [facility] [id number], [place] [address] Dec, [facility] [id number] [place] [address] Dec, Gastroesophageal reflux disease without esophagitis K21.9 [facility] [id number] [place] [address] November, Type 2 diabetes mellitus with other diabetic kidney complication E11.29 [facility] [address], [place] [address] November, [facility] [id number] [place] [address] November, Type 2 diabetes mellitus with other diabetic kidney complication E11.29 [facility] [id number] [place] [address] November, [facility] [id number] [place] [address] November, Type 2 diabetes mellitus with other diabetic kidney complication E11.29 [facility] [id number] [place] [address] November, [facility] [id number] [place] [address] Oct, Essential hypertension I10 [facility] [id number] [place] [address] Oct, Psoriasis of scalp L40.9 [facility] [id number] [place] [address] Oct, Essential hypertension I10 and Chronic pain syndrome G89.4 [facility] [id number], [place] [address] Oct, [facility] [address], [place] [address] Sep, Type 2 diabetes mellitus with other diabetic kidney complication E11.29 [facility] [address], [place] [address] Sep, [facility] [id number] [place] [address] Sep, Type 2 diabetes mellitus with other diabetic kidney complication E11.29 [facility] [address], [place] [address] 20 Mar, 2017 Type 2 diabetes mellitus with other diabetic kidney complication E11.29 [place] [facility] [id number] [place] [address] 09 Sep, 2017 Type 2 diabetes mellitus [...] extremity R20.2 and Psoriasis of scalp L40.9 [place] [id number] [place] [address] Sep, [address] [address] Aug, Essential hypertension I10 [place] [facility] [address] [address] Aug, History of DVT (deep vein thrombosis) Z86.718 [place] [facility] [id number] [place] [address] Aug, [place] [facility] [id number] [place] [address] Jul, [facility] [facility] [id number] [place] [address] Jul, [place] [facility] [id number] [place] [address] Jul, USP current use of anticoagulant Z79.01 ; Chronic pain syndrome G89.4 and Chronic kidney disease, stage 4 (severe) N18.4 [place] [id number] [place] [address] Jul, [place] [facility] [address] [place] [address] Jul, [place] [address] [place] [address] Jul, [facility] [facility] [id number] [place] [address] Jul, [facility] [facility] [id number] [place] [address] Jul, [facility] [facility] [id number] [place] [address] Jul, Type 2 diabetes mellitus with other diabetic kidney complication E11.29 [place] [id number] [place] [address] Jul, History of DVT (deep vein thrombosis) Z86.718 [facility] [facility] [id number] [place] [address] Jun, [facility] [facility] [id number] [place] [address] Jun, History of DVT (deep vein thrombosis) Z86.718 [place] [id number] [place] [address] 15 Jun, 2016 Post traumatic stress disorder (PTSD) F43.10 [place] [id number] [place] [address] 07 Jun, 2016 Type 2 diabetes mellitus [...] pain M79.641 and Right wrist pain M25.531 [facility] [id number] [place] [address] May, [facility] [id number] [place] [address] May, [facility] [address] [address] May, [facility] [id number] [place] [address] May, [facility] [id number] [place] [address] May, Anemia in other chronic diseases classified elsewhere D63.8 [facility] [address] [address] May, [facility] [id number] [place] [address] Apr, [facility] [id number] [place] [address] 27 Mar, 2016 Dermatofibroma D23.9 [facility] [id number] [place] [address] 20 Mar, 2016 [facility] [id number] [place] [address] 14 Mar, 2016 Chronic pain syndrome G89.4 [facility] [id number] [place] [address] 09 Mar, 2016 [facility] [id number] [place] [address] 07 Mar, 2016 [facility] [id number] [place] [address] 06 Mar, 2016 [facility] [address] [place] [address] Feb, [facility] [address], [place] [address] Feb, [facility] [address], [place] [address] Feb, [facility] [address] [place] [address] Feb, [facility] [address] [place] [address] Feb, [facility] [address] [place] [address] Feb, [facility] [address] [place] [address] Feb, Type 2 diabetes mellitus with other diabetic kidney complication E11.29 ; Diabetic polyneuropathy associated with type 2 diabetes mellitus E11.42 ; Iron deficiency anemia due to chronic blood loss D50.0 ; Chronic obstructive pulmonary disease, unspecified COPD type J44.9 ; 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 ; History of DVT (deep vein thrombosis) Z86.718 ; Chronic pain syndrome G89.4 ; Oxygen desaturation during sleep G47.34 ; Sleep apnea in adult G47.33 ; Gastroesophageal reflux disease without esophagitis K21.9 ; Essential hypertension I10 ; Primary insomnia F51.01 ; Depression, unspecified depression type F32.9 and Renal failure, chronic, stage 4 (severe) N18.4 [facility] [address], [place] [address] Feb, Skin tags, multiple acquired L91.8 [facility] [id number] [place] [address] Jan, [facility] [address] [address] Jan, Dental examination Z01.20 [facility] [id number] [place] [address] Jan, [facility] [address] [place] [id number] [place] [address] Jan, Type 2 diabetes mellitus with other diabetic kidney complication E11.29 ; Diabetic polyneuropathy associated with type 2 diabetes mellitus E11.42 ; Iron deficiency anemia due to chronic blood loss D50.0 ; Chronic obstructive pulmonary disease, unspecified COPD type J44.9 ; 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 ; History of DVT (deep vein thrombosis) Z86.718 ; Chronic pain syndrome G89.4 ; Oxygen desaturation during sleep G47.34 ; Sleep apnea in adult G47.33 ; Gastroesophageal reflux disease without esophagitis K21.9 ; Essential hypertension I10 ; Primary insomnia F51.01 ; Depression, unspecified depression type F32.9 ; Skin lesion L98.9 and Renal failure, chronic, stage 4 (severe) N18.[address] [place] [address] Dec, Diabetes type 2, uncontrolled E11.65 [place] [id number] [place] [address] Dec, [place] [id number] [place] [address] Dec, Type 2 diabetes mellitus with other diabetic kidney complication E11.29 ; Diabetic polyneuropathy associated with type 2 diabetes mellitus E11.42 ; Iron deficiency anemia due to chronic blood loss D50.0 ; Chronic obstructive pulmonary disease, unspecified COPD type J44.9 ; 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 ; History of DVT (deep vein thrombosis) Z86.718 ; Chronic pain syndrome G89.4 ; Oxygen desaturation during sleep G47.34 ; Sleep apnea in adult G47.33 ; Gastroesophageal reflux disease without esophagitis K21.9 ; Essential hypertension I10 ; Primary insomnia F51.01 and Depression, unspecified depression type F32.9 [facility] [address] [id number][place] [id number] Dec, Dental caries K02.9 [facility] [address] [id number] [address] [id number] Dec, [facility] [address] [id number] [place] [id number] Dec, Dental examination Z01.20 [facility] [address] [id number] [place] [id number] November, Dental examination Z01.20 and Dental caries K02.9 [facility] [address] [id number], [place] [id number] Oct, [facility] [address] [id number] [address] [id number] Oct, [facility] [address] [id number], [place] [id number] Sep, [facility] [address] [id number] [address] [address] [id number] Sep, [facility] [address] [id number] [address] [address] [id number] Sep, [facility] [address] [id number] [address] [address] [id number] Sep, Other chronic pain 338.29 [facility] [address] [id number][place] [id number] Aug, Diabetes type 2, uncontrolled E11.65 and Morbid obesity due to excess calories E66.01 [facility] [address] [id number], [place] [id number] Aug, Hair loss L65.9 [facility] [address] [id number], [place] [id number] Aug, [facility] [address] [id number], [place] 729455835 Jul, [facility] [address] [id number], [place] [id number] Jul, [facility] [address] [id number] [address] [id number] Jun, [facility] [address] [id number] [address] [address] [id number] Jun, Hair loss L65.9 and Disorder of the skin and subcutaneous tissue, unspecified L98.9 [id number] [place] [address] [id number] May, Type 2 diabetes mellitus with other diabetic kidney complication E11.29 ; Type 2 diabetes mellitus with hyperglycemia E11.65 ; Morbid obesity due to excess calories E66.01 and Essential hypertension I10 [place] [id number] [place] [address] [id number] May, Diabetes type 2, uncontrolled E11.65 ; Encounter for immunization Z23 and Morbid obesity due to excess calories E66.01 [place] [id number] [place] [address] [id number] May, [facility] [address] [address] Apr, [address] [id number] Apr, Hyperglycemia R73.[address] [id number] Apr, [address] [id number] Apr, Depression F32.9 ; Encounter for immunization Z23 ; Hyperglycemia R73.9 and Anemia in other chronic diseases classified elsewhere D63.8 [facility] [id number] [place] [address] [id number] Mar, [id number] [place] [address] [id number] Feb, Positive occult stool blood test 792.1 [place] [id number] [place] [address] [id number] Feb, Depression 311 ; Other chronic pain 338.29 and Diabetes with renal manifestations, type II or unspecified type, not stated as uncontrolled 250.40 [facility] [id number] [place] [address] Feb, Occult blood in stools 792.[id number] [place] [address] [id number] Feb, Anemia 285.9 ; Occult blood positive stool 792.1 ; Unspecified essential hypertension 401.9 and Other chronic pain 338.29 [facility] [id number], [place] [id number] Feb, [facility] [place] [id number] [place] [address] [id number] Feb, Anemia 285.9 [facility] [place] [id number], [place] [id number] Feb, [facility] [place] [id number] [address] [id number] Feb, [facility] [place] [id number] [address] [id number] Feb, Diabetes with renal manifestations, type II or unspecified type, not stated as uncontrolled 250.40 ; Other chronic pain 338.29 ; Unspecified essential hypertension 401.9 ; Anemia 285.9 and Depression 311 [facility] [id number] [address] [id number] Jan, [facility] [id number] [address] [id number] Jan, Anemia 285.9 and Follow up V67.9 [facility] [place] [id number], [place] [id number] Jan, [facility] [id number] [address] [id number] Jan, [facility] [place] [id number] [place] [address] [id number] Jan, [facility] [id number] [address] [id number] Dec, [facility] [address]00565100[place], [place] [address] Oct, [facility] [id number] [place] [address] Oct, [facility] [id number] [place] [address] Sep, [facility] [address] [id number], [place] [id number] Sep, [facility] [id number] [place] [address] Sep, [facility] [address] [id number], [place] [id number] Aug, [facility] [place] [facility] [address] [facility] [id number], [place] [address] Aug, [facility] [place] [facility] [address] [facility] [id number] [address] Aug, [facility] [address] [id number], [place] [id number] Aug, [facility] [place] [facility] [address] [facility] [id number] [place] [address] Aug, [facility] [place] [facility] [address] [id number], [place] [address] Aug, [facility] [address] [id number], [place] [id number] Aug, [facility] [place] [facility] [address]00565100[place], [place] [address] Aug, [facility] [address] [facility] [id number], [place] [id number] Jul, [facility] [place] [facility] [address]00565100[place], [place] [address] Jul, [facility] [place] [facility] [address] [id number], [place] [address] Jul, [facility] [address] [id number], [place] [id number] Jul, [facility] [place] [facility] [address] [facility] [id number], [place] [address] Jul, [facility] [address] [facility] [id number], [place] [id number] Jul, [facility] [place] [facility] [address] [facility] [id number], [place] [address] Jul, [facility] [address] [id number], [place] [id number] Jun, [facility] [address] [facility] [id number], [place] [id number] Jun, [facility] [place] [facility] [address] [facility] [id number] [place] [address] Jun, [facility] [place] [facility] [address] [facility] [id number] [place] [address] Jun, [facility] [address] [facility] [id number], [place] [id number] Jun, [facility] [place] [facility] [address] [facility] [id number], [place] [address] Jun, [facility] [address] [facility] [id number], [place] [id number] May, [facility] [place] [facility] [address] [id number], [place] [address] May, [facility] [place] [facility] [address]00565100[place], [place] [address] May, [facility] [address] [facility] [id number], [place] [id number] Apr, [facility] [place] [facility] [address] [facility] [id number], [place] [address] Apr, [facility] [address] [facility]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
--- OUTSIDE RECORDS SUMMARY | 2018-12-28 17:39 | XMS REPORT ---
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 Active 008002182 Problem Chronic pain syndrome G89.4 Active 056543364 Problem Sleep apnea in adult G47.33 Active 76205455 Problem Diabetic polyneuropathy associated with type 2 diabetes mellitus E11.42 Active 50325617 Problem Primary insomnia F51.01 Active 2759193 Problem Chronic obstructive pulmonary disease, unspecified COPD type J44.9 Active 00685879 Problem Right carpal tunnel syndrome G56.01 Active 859188956136749 Problem Gastroesophageal reflux disease without esophagitis K21.9 Active 018057279 Problem 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 Active 028514381312533 Problem Chronic kidney disease, stage 4 (severe) N18.4 Active 654918616 Problem Type 2 diabetes mellitus with hyperglycemia E11.65 Active 505884004293378 Problem Psoriasis of scalp L40.9 Active 113861826 Problem Carpal tunnel syndrome, bilateral G56.03 Active 15813837969817754 Problem Depression, unspecified depression type F32.9 Active 98443086 Problem Type 2 diabetes mellitus with other diabetic kidney complication E11.29 Active 322172738 Problem Fibromyalgia M79.7 Active 642326427 Problem Oxygen desaturation during sleep G47.34 Active 361569809 Problem Anemia in other chronic diseases classified elsewhere D63.8 Active 475017893 Problem History of DVT (deep vein thrombosis) Z86.718 Active 494275646 Problem Paresthesia of right upper extremity R20.2 Active 39061096 Problem half-way 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 Active 684732223 Problem Supplemental oxygen dependent Z99.81 Active 690431069152 Problem Bilateral lower extremity edema R60.0 Active 949823622 ALLERGIES No Information ENCOUNTERS Encounter Location Date Diagnosis [facility] [address], [place] [address] Apr, [facility] [address], [place] [address] Feb, [facility] [address] [place] [address] Feb, [facility] [address], [place] [address] Jan, [facility] [address], [place] [address] Jan, [facility] [address] [place] [address] Jan, [address] [id number] Jan, [facility] [address], [place] [address] Jan, [facility] [address], [place] [address] Jan, [facility] [address], [place] [address] Jan, Essential hypertension I10 [facility] [address], [place] [address] Jan, Chronic obstructive pulmonary disease, unspecified COPD type J44.9 [facility] [id number], [place] [address] Jan, [facility] [id number], [place] [address] Jan, [facility] [id number], [place] [address] Jan, Type 2 diabetes mellitus with other diabetic kidney complication E11.29 ; Anemia in other chronic diseases classified elsewhere D63.8 ; Chronic obstructive pulmonary disease, unspecified COPD type J44.9 and BMI 60.0-69.9, adult Z68.44 [facility] [address] [address] Jan, [facility] [id number] [place] [address] Jan, [facility] [id number] [id number] Jan, [facility] [id number] [place] [phone] Dec, [facility] [id number] [place] [phone] Dec, [facility] [address] [place] [phone] Dec, Essential hypertension I10 ; Type 2 diabetes mellitus with other diabetic kidney complication E11.29 ; Depression, unspecified depression type F32.9 ; Supplemental oxygen dependent Z99.81 ; Chronic pain syndrome G89.4 ; Fibromyalgia M79.7 ; Carpal tunnel syndrome, bilateral G56.03 and Chronic kidney disease, stage 4 (severe) N18.4 [facility] [id number] [place] [address] Dec, Essential hypertension I10 [facility] [id number] [place] [address] November, Type 2 diabetes mellitus with other diabetic kidney complication E11.29 [facility] [id number] [place] [address] November, Chronic pain syndrome G89.4 [facility] [address], [place] [address] November, [facility] [id number] [place] [address] November, [facility] [id number] [place] [address] November, [facility] [address] [place] [address] Oct, Type 2 diabetes mellitus with other diabetic kidney complication E11.29 [place] [address], [place] [address] Oct, Primary insomnia F51.01 [facility] [id number] [id number] Oct, Bilateral lower extremity edema R60.0 [place] [address] [place] [address] Oct, [place] [address] [place] [address] Sep, Type 2 diabetes mellitus with other diabetic kidney complication E11.29 and Chronic obstructive pulmonary disease, unspecified COPD type J44.9 [place] [address] [place] [address] 15 Aug, 2017 Type 2 diabetes mellitus with other diabetic kidney complication E11.29 [address] [place] [address] 12 Aug, 2017 Gastroesophageal reflux disease without esophagitis K21.9 ; half-way current use of anticoagulant Z79.01 ; Chronic pain syndrome G89.4 ; Essential hypertension I10 and Type 2 diabetes mellitus with other diabetic kidney complication E11.29 [place] [address], [place] [address] 08 Aug, 2017 Chronic pain syndrome G89.4 [place] [address], [place] [address] Aug, Type 2 diabetes mellitus with other diabetic kidney complication E11.29 [place] [address], [place] [address] Jul, Diabetic polyneuropathy associated with type 2 diabetes mellitus E11.42 [place] [address], [place] [address] Jul, Primary insomnia F51.01 [facility] [address], [place] [address] Jul, [place] [address], [place] [address] Jul, Type 2 diabetes mellitus with other diabetic kidney complication E11.29 and Chronic obstructive pulmonary disease, unspecified COPD type J44.9 [place] [address], [place] [address] 08 Jul, 2017 Type 2 diabetes mellitus with other diabetic kidney complication E11.29 [place] [id number] [place] [address] Jun, Type 2 diabetes mellitus with other diabetic kidney complication E11.29 [place] [id number] [place] [address] 27 Jun, 2017 [place] [id number] [place] [address] Jun, Chronic obstructive pulmonary disease, unspecified COPD type J44.9 [place] [id number] [place] [address] May, Type 2 diabetes mellitus with other diabetic kidney complication E11.29 [place] [address], [place] [address] May, 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9, adult Z68.41 ; Gastroesophageal reflux disease without esophagitis K21.9 ; 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 ; 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 ; Diabetic polyneuropathy associated with type 2 diabetes mellitus E11.42 ; Edema of both legs R60.0 and Supplemental oxygen dependent Z99.81 [place] [address] [address] May, [place] [id number] [place] [address] May, Essential hypertension I10 and Gastroesophageal reflux disease without esophagitis K21.9 [place] [address] [address] May, [place] [address] [address] May, Type 2 diabetes mellitus with other diabetic kidney complication E11.29 and half-way current use of anticoagulant Z79.01 [place] [id number] [place] [address] Apr, Chronic pain syndrome G89.4 and Essential hypertension I10 [place] [id number] [place] [address] Apr, Type 2 diabetes mellitus with other diabetic kidney complication E11.29 [place] [id number] [place] [address] Apr, Type 2 diabetes mellitus with other diabetic kidney complication E11.29 [place] [id number] [place] [address] Apr, Essential hypertension I10 [place] [id number] [place] [address] Apr, Gastroesophageal reflux disease without esophagitis K21.9 [place] [id number] [place] [address] Apr, Type 2 diabetes mellitus with other diabetic kidney complication E11.29 [place] [id number] [place] [address] Apr, Type 2 diabetes mellitus with other diabetic kidney complication E11.29 and 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 [facility] [address] [place] [address] 27 Mar, 2017 Encounter for immunization Z23 and Preoperative examination Z01.818 [facility] [id number] [place] [address] Mar, [facility] [id number] [place] [address] Mar, Type 2 diabetes mellitus with other diabetic kidney complication E11.29 [place] [id number] [place] [address] 08 Mar, 2017 Type 2 diabetes mellitus with other diabetic kidney complication E11.29 [place] [id number] [place] [address] Mar, Gastroesophageal reflux disease without esophagitis K21.9 [place] [id number] [place] [address] Mar, Essential hypertension I10 [place] [id number] [place] [address] Feb, 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 [facility] [id number] [place] [address] Feb, Type 2 diabetes mellitus with other diabetic kidney complication E11.29 [facility] [id number] [place] [address] Feb, Type 2 diabetes mellitus with other diabetic kidney complication E11.29 [place] [id number] [place] [address] Feb, Type 2 diabetes mellitus with other diabetic kidney complication E11.29 [place] [id number] [place] [address] Feb, Gastroesophageal reflux disease without esophagitis K21.9 [facility] [id number] [place] [address] Feb, Type 2 diabetes mellitus with other diabetic kidney complication E11.29 [facility] [address], [place] [address] Feb, half-way current use of anticoagulant Z79.01 [facility] [address], [place] [address] Jan, Type 2 diabetes mellitus with other diabetic kidney complication E11.29 [facility] [address], [place] [address] Jan, Type 2 diabetes mellitus with other diabetic kidney complication E11.29 [facility] [address], [place] [address] Jan, Chronic pain syndrome G89.4 [facility] [address], [place] [address] Jan, [facility] [address], [place] [address] Jan, [facility] [address], [place] [address] Jan, [facility] [address] [place] [address] Jan, [facility] [address], [place] [address] Jan, Primary insomnia F51.01 ; Type 2 diabetes mellitus with other diabetic kidney complication E11.29 ; Chronic pain syndrome G89.4 and Essential hypertension I10 [facility] [address], [place] [address] Jan, Primary insomnia F51.01 [facility] [address], [place] [address] Jan, Type 2 diabetes mellitus with other diabetic kidney complication E11.29 [facility] [address], [place] [address] Jan, [facility] [id number] [place] [address] Jan, Chronic obstructive pulmonary disease, unspecified COPD type J44.9 [facility] [id number] [place] [address] Jan, Essential hypertension I10 ; Type 2 diabetes mellitus with other diabetic kidney complication E11.29 ; Chronic obstructive pulmonary disease, unspecified COPD type J44.9 ; Chronic kidney disease, stage 4 (severe) N18.4 ; Right carpal tunnel syndrome G56.01 ; 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 ; half-way (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 and Diabetic polyneuropathy associated with type 2 diabetes mellitus E11.42 [place] [id number] [place] [address] Jan, Gastroesophageal reflux disease without esophagitis K21.9 [place] [id number] [place] [address] Dec, [facility] [id number] [place] [address] Dec, [facility] [id number] [place] [address] Dec, half-way current use of anticoagulant Z79.01 ; Chronic pain syndrome G89.4 and Essential hypertension I10 [facility] [id number] [place] [address] Dec, [facility] [id number] [place] [address] Dec, Type 2 diabetes mellitus with other diabetic kidney complication E11.29 [facility] [address], [place] [address] Dec, [facility] [id number] [place] [address] Dec, Gastroesophageal reflux disease without esophagitis K21.9 [facility] [id number] [place] [address] November, Type 2 diabetes mellitus with other diabetic kidney complication E11.29 [facility] [address], [place] [address] November, [facility] [id number] [place] [address] November, Type 2 diabetes mellitus with other diabetic kidney complication E11.29 [facility] [id number] [place] [address] November, [facility] [id number] [place] [address] November, Type 2 diabetes mellitus with other diabetic kidney complication E11.29 [facility] [id number] [place] [address] November, [facility] [id number] [place] [address] Oct, Essential hypertension I10 [facility] [id number] [place] [address] Oct, Psoriasis of scalp L40.9 [facility] [id number] [place] [address] Oct, Essential hypertension I10 and Chronic pain syndrome G89.4 [facility] [address], [place] [address] Oct, [facility] [address], [place] [address] Sep, Type 2 diabetes mellitus with other diabetic kidney complication E11.29 [facility] [address], [place] [address] Sep, [facility] [id number] [place] [address] Sep, Type 2 diabetes mellitus with other diabetic kidney complication E11.29 [facility] [address], [place] [address] 20 Mar, 2017 Type 2 diabetes mellitus with other diabetic kidney complication E11.29 [place] [id number] [place] [address] 09 Sep, 2017 Type 2 diabetes mellitus with other diabetic kidney complication E11.29 ; Chronic kidney disease, stage 4 (severe) N18.4 ; Chronic obstructive pulmonary disease, unspecified COPD type J44.9 ; Iron deficiency anemia due to chronic blood loss D50.0 ; half-way current use of anticoagulant Z79.01 ; Gastroesophageal reflux disease without esophagitis K21.9 ; Essential hypertension I10 ; Primary insomnia F51.01 ; Depression, unspecified depression type F32.9 ; Chronic pain syndrome G89.4 ; Wrist pain, right M25.531 ; Paresthesia of right upper extremity R20.2 and Psoriasis of scalp L40.9 [place] [id number] [place] [address] Sep, [address] [address] Aug, Essential hypertension I10 [place] [address] [address] Aug, History of DVT (deep vein thrombosis) Z86.718 [place] [id number] [place] [address] Aug, [place] [id number] [place] [address] Jul, [place] [id number] [place] [address] Jul, [place] [id number] [place] [address] Jul, half-way current use of anticoagulant Z79.01 ; Chronic pain syndrome G89.4 and Chronic kidney disease, stage 4 (severe) N18.4 [place] [id number] [place] [address] Jul, [place] [address] [place] [address] Jul, [place] [address] [place] [address] Jul, [place] [id number] [place] [address] Jul, [place] [id number] [place] [address] Jul, [place] [id number] [place] [address] Jul, Type 2 diabetes mellitus with other diabetic kidney complication E11.29 [place] [id number] [place] [address] Jul, History of DVT (deep vein thrombosis) Z86.718 [place] [id number] [place] [address] Jun, [place] [id number] [place] [address] Jun, History of DVT (deep vein thrombosis) Z86.718 [place] [id number] [place] [address] 15 Jun, 2016 Post traumatic stress disorder (PTSD) F43.10 [place] [id number] [place] [address] 07 Jun, 2016 Type 2 diabetes mellitus with other diabetic kidney complication E11.29 ; Diabetic polyneuropathy associated with type 2 diabetes mellitus E11.42 ; Iron deficiency anemia due to chronic blood loss D50.0 ; Chronic obstructive pulmonary disease, unspecified COPD type J44.9 ; half-way current use of anticoagulant Z79.01 ; History [...] M25.531 [facility] [id number] [place] [address] May, [facility] [id number] [place] [address] May, [facility] [address] [address] May, [facility] [id number] [place] [address] May, [facility] [id number] [place] [address] May, Anemia in other chronic diseases classified elsewhere D63.8 [facility] [address] [address] May, [facility] [id number] [place] [address] Apr, [facility] [id number] [place] [address] 27 Mar, 2016 Dermatofibroma D23.9 [facility] [id number] [place] [address] 20 Mar, 2016 [facility] [id number] [place] [address] 14 Mar, 2016 Chronic pain syndrome G89.4 [facility] [id number] [place] [address] 09 Mar, 2016 [facility] [id number] [place] [address] 07 Mar, 2016 [facility] [id number] [place] [address] 06 Mar, 2016 [facility] [address] [address] Feb, [facility] [address], [place] [address] Feb, [facility] [address], [place] [address] Feb, [facility] [address] [place] [address] Feb, [facility] [id number] [place] [address] Feb, [facility] [id number] [place] [address] Feb, [facility] [address] [place] [address] Feb, Type 2 diabetes mellitus with other diabetic kidney complication E11.29 ; Diabetic polyneuropathy associated with type 2 diabetes mellitus E11.42 ; Iron deficiency anemia due to chronic blood loss D50.0 ; Chronic obstructive pulmonary disease, unspecified COPD type J44.9 ; 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 ; History [...] N18.4 [facility] [address]00565[address], [place] [address] Feb, Skin tags, multiple acquired L91.8 [facility] [id number] [place] [address] Jan, [facility] [address]00565[address] [id number] Jan, Dental examination Z01.20 [facility] [id number] [place] [address] Jan, [facility] [address] [place] [id number] [place] [address] Jan, Type 2 diabetes mellitus with other diabetic kidney complication E11.29 ; Diabetic polyneuropathy associated with type 2 diabetes mellitus E11.42 ; Iron deficiency anemia due to chronic blood loss D50.0 ; Chronic obstructive pulmonary disease, unspecified COPD type J44.9 ; 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 ; History of DVT (deep vein thrombosis) Z86.718 ; Chronic pain syndrome G89.4 ; Oxygen desaturation during sleep G47.34 ; Sleep apnea in adult G47.33 ; Gastroesophageal reflux disease without esophagitis K21.9 ; Essential hypertension I10 ; Primary insomnia F51.01 ; Depression, unspecified depression type F32.9 ; Skin lesion L98.9 and Renal failure, chronic, stage 4 (severe) N18.4 [address] [place] [address] Dec, Diabetes type 2, uncontrolled E11.65 [id number] [place] [address] Dec, [address] [id number] [place] [address] Dec, Type 2 diabetes mellitus with other diabetic kidney complication E11.29 ; Diabetic polyneuropathy associated with type 2 diabetes mellitus E11.42 ; Iron deficiency anemia due to chronic blood loss D50.0 ; Chronic obstructive pulmonary disease, unspecified COPD type J44.9 ; 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 ; History of DVT (deep vein thrombosis) Z86.718 ; Chronic pain syndrome G89.4 ; Oxygen desaturation during sleep G47.34 ; Sleep apnea in adult G47.33 ; Gastroesophageal reflux disease without esophagitis K21.9 ; Essential hypertension I10 ; Primary insomnia F51.01 and Depression, unspecified depression type F32.9 [facility] [address] [id number] [id number] Dec, Dental caries K02.9 [facility] [address] [id number] [place] [address] [id number] Dec, [facility] [address] [id number] [place] [id number] Dec, Dental examination Z01.20 [facility] [address] [id number] [place] [id number] November, Dental examination Z01.20 and Dental caries K02.9 [facility] [address] [id number][place] [id number] Oct, [facility] [id number] [place] [address] [id number] Oct, [facility] [address] [id number][place] [id number] Sep, [facility] [address] [id number] [place] [address] [id number] Sep, [facility] [address] [id number] [place] [address] [id number] Sep, [facility] [id number] [place] [address] [id number] Sep, Other chronic pain 338.29 [facility] [address] [id number][place] [id number] Aug, Diabetes type 2, uncontrolled E11.65 and Morbid obesity due to excess calories E66.01 [facility] [address] [id number][place] [id number] Aug, Hair loss L65.9 [facility] [address] [id number], [place] [id number] Aug, [facility] [address] [id number], [place] [id number] Jul, [facility] [address] [id number], [place] [id number] Jul, [facility] [address] [id number] [place] [address] [id number] Jun, [facility] [address] [id number] [place] [address] [id number] Jun, Hair loss L65.9 and Disorder of the skin and subcutaneous tissue, unspecified L98.9 [id number] [place] [address] [id number] May, Type 2 diabetes mellitus with other diabetic kidney complication E11.29 ; Type 2 diabetes mellitus with hyperglycemia E11.65 ; Morbid obesity due to excess calories E66.01 and Essential hypertension I10 [address] [id number] [place] [address] [id number] May, Diabetes type 2, uncontrolled E11.65 ; Encounter for immunization Z23 and Morbid obesity due to excess calories E66.01 [address] [place] [id number] [place] [address] [id number] May, [facility] [address] [address] Apr, [address] [id number] Apr, Hyperglycemia R73.[address] [id number] Apr, [address] [id number] Apr, Depression F32.9 ; Encounter for immunization Z23 ; Hyperglycemia R73.9 and Anemia in other chronic diseases classified elsewhere D63.8 [facility] [address] [place] [address] [id number] Mar, [id number] [place] [address] [phone] Feb, Positive occult stool blood test 792.1 [address] [place] [id number] [place] [address] [id number] Feb, Depression 311 ; Other chronic pain 338.29 and Diabetes with renal manifestations, type II or unspecified type, not stated as uncontrolled 250.40 [facility] [id number] [place] [address] Feb, Occult blood in stools 792.1 [address] [place] [address] [id number] Feb, Anemia 285.9 ; Occult blood positive stool 792.1 ; Unspecified essential hypertension 401.9 and Other chronic pain 338.29 [facility] [place] [id number][place] [id number] Feb, [facility] [place] [id number] [place] [address] [id number] Feb, Anemia 285.9 [facility] [place] [id number], [place] [id number] Feb, [facility] [place] [id number] [place] [address] [id number] Feb, [facility] [place] [id number] [place] [address] [id number] Feb, Diabetes with renal manifestations, type II or unspecified type, not stated as uncontrolled 250.40 ; Other chronic pain 338.29 ; Unspecified essential hypertension 401.9 ; Anemia 285.9 and Depression 311 [facility] [place] [id number] [place] [address] [id number] Jan, [facility] [id number] [place] [address] [id number] Jan, Anemia 285.9 and Follow up V67.9 [facility] [place] [id number], [place] [id number] Jan, [facility] [id number] [place] [address] [id number] Jan, [facility] [place] [id number] [place] [address] [id number] Jan, [facility] [id number] [place] [address] [id number] Dec, [facility] [address]00565100[place], [place] [address] Oct, [facility] [id number] [place] [address] Oct, [facility] [id number] [place] [address] Sep, [facility] [address] [id number] [id number] Sep, [facility] [id number] [place] [address] Sep, [facility] [address] [id number], [place] [id number] Aug, [facility] [place] [facility] [address] [facility] [id number], [place] [address] Aug, [facility] [place] [facility] [address] [facility] [id number], [place] [address] Aug, [facility] [place] [address] [id number], [place] [id number] Aug, [facility] [place] [facility] [address] [facility] [id number] [place] [address] Aug, [facility] [place] [facility] [address] [id number], [place] [address] Aug, [facility] [address] [id number][place] [id number] Aug, [facility] [place] [facility] [address]00565[address], [place] [address] Aug, [facility] [place] [address] [facility] [id number], [place] [id number] Jul, [facility] [place] [facility] [address]00565[address], [place] [address] Jul, [facility] [place] [facility] [address] [id number], [place] [address] Jul, [facility] [address] [id number], [place] [id number] Jul, [facility] [place] [facility] [address] [facility] [id number], [place] [address] Jul, [facility] [address] [facility] [id number], [place] [id number] Jul, [facility] [place] [facility] [address] [facility] [id number], [place] [address] Jul, [facility] [address] [id number], [place] [id number] Jun, [facility] [address] [facility] [id number], [place] [id number] Jun, [facility] [place] [facility] [address] [facility] [id number] [place] [address] Jun, [facility] [place] [facility] [address] [facility] [id number] [place] [address] Jun, [facility] [address] [facility] [id number], [place] [id number] Jun, [facility] [place] [facility] [address] [facility] [id number], [place] [address] Jun, [facility] [place] [address] [facility] [id number], [place] [id number] May, [facility] [place] [facility] [address] [id number], [place] [address] May, [facility] [place] [facility] [address]00565100[place], [place] [address] May, [facility] [place] [address] [facility] [id number], [place] [id number] Apr, [facility] [place] [facility] [address] [facility] [id number], [place] [address] Apr, [facility] [place] [address] [facility] [id number], [place] [id number] Apr, [facility] [place] [address] [facility] [id number], [place] [id number] Apr, [facility] [place] [facility] [address] [facility] [id number], [place] [address] Apr, [facility] [place] [facility] [address] [facility] [id number], [place] [address] Apr, [facility] [place] [address] [facility] [id number], [place] [id number] Mar, [facility] [place] [facility] [address] [facility] [id number], [place] [address] Mar, [facility] [place] [address] [facility] [id number], [place] [id number] Mar, [facility] [place] [facility] [address] [id number] [place] [address] Mar, [facility] [address] [id number] [place] [id number] Mar, [facility] [place] [facility] [address] [facility] [id number] [place] [address] Mar, [facility] [place] [address] [id number] [place] [id number] Mar, [facility] [place] [facility] [address] [id number] [place] [address] Mar, [facility] [address] [id number] [place] [id number] Mar, [facility] [place] [facility] [address] [facility] [id number] [place] [address] Mar, [facility] [place] [address] [facility] [id number] [place] [id number] Feb, [facility] [place] [facility] [address] [facility] [id number], [place] [address] Feb, [facility] [place] [address] [facility] [id number], [place] [id number] Jan, [facility] [place] [facility] [address] [facility] [id number], [place] [address] Jan, [facility] [place] [address] [facility] [id number] [place] [id number] Jan, [facility] [place] [facility] [address] [facility] [id number], [place] [address] Jan, [facility] [place] [address] [facility] [id number], [place] [id number] Jan, [facility] [place] [facility] [address] [facility] [id number] [place] [address] Jan, [facility] [place] [facility] [address] [facility] [id number], [place] [address] Dec, [facility] [place] [facility] [address] [facility] [id number], [place] [address] Dec, [facility] [address] [id number] [place] [id number] November, [facility] [place] [facility] [address] [id number] [place] [address] November, [facility] [place] [address] [id number] [place] [id number] November, [facility] [place] [facility] [address] [id number] [place] [address] November, [facility] [address] [id number] [place] [id number] Oct, [facility] [place] [facility] [address] [id number] [place] [address] Oct, [facility] [place] [facility] [address] [facility] [id number] [place] [address] Oct, [facility] [place] [facility] [address] [facility] [id number] [place] [address] Oct, [facility] [place] [facility] [address] [id number] [place] [address] Oct, [facility] [place] [facility] [address] [facility] [id number] [place] [address] Oct, [facility] [place] [address] [id number] [place] [id number] Sep, [facility] [place] [address] [id number] [place] 874457576 Sep, [facility] [place] [facility] [address] [id number] [place] [address] Sep, [facility] [place] [facility] [address] [id number] [place] [address] Sep, [facility] [place] [address] [id number] [place] [id number] Sep, [facility] [place] [facility] [address] [facility] [id number] [place] [address] Sep, [facility] [place] [facility] [address] [facility] [id number], [place] [address] Aug, [facility] [place] [facility] [address] [facility] [id number], [place] [address] Aug, [facility] [address] [facility] [id number], [place] [id number] Aug, [facility] [address] [facility] [id number] [place] [id number] Aug, [facility] [place] [facility] [address] [facility] [id number], [place] [address] Aug, [facility] [address] [facility] [id number] [place] [id number] Aug, [facility] [place] [facility] [address]00565100[place], [place] [address] Aug, [facility] [place] [address] [id number], [place] 795669602 Aug, [facility] [place] [facility] [address]00565100[place], [place] [address] Aug, [facility] [place] [address] [facility] [id number], [place] 662198544 Aug, [facility] [place] [facility] [address]00565100[place], [place] [address] Aug, [facility] [place] [address] [id number], [place] 853917659 Aug, [facility] [place] [facility] [address]00565100[place], [place] [address] Aug, [facility] [place] [facility] [address] [facility] [id number], [place] [address] Jul, [facility] [place] [address] [facility] [id number], [place] [id number] Jun, [facility] [place] [facility] [address] [id number], [place] [address] Jun, [facility] [place] [facility] [address]00565100[place], [place] [address] Jun, [facility] [place] [facility] [address] [id number] [place] [address] Jun, [facility] [place] [address] [facility] [id number], [place] 109063816 Jun, [facility] [place] [facility] [id number] [address] Jun, [facility] [place] [facility] [address] [facility] [id number], [place] [address] Jun, [facility] [place] [address] [facility] [id number] [place] [id number] Jun, [facility] [place] [facility] [address] [facility] [id number], [place] [address] Jun, [facility] [place] [facility] [address] [id number], [place] [address] May, [facility] [place] [address] [id number], [place] 332752447 May, [facility] [place] [facility] [address] [id number], [place] [address] May, [facility] [place] [facility] [address] [id number], [place] [address] May, [facility] [place] [facility] [address] [id number], [place] [address] May, [facility] [place] [facility] [address] [facility] [id number], [place] [address] May, [facility] [place] [address] [facility] [id number], [place] 029645401 May, [facility] [place] [facility] [address] [facility] [id number], [place] [address] May, [facility] [place] [address] [facility] [id number], [place] 786674946 May, [facility] [place] [facility] [address] [facility] [id number], [place] [address] May, [facility] [place] [address] [facility] [id number], [place] [id number] Apr, [facility] [place] [facility] [address] [facility] [id number], [place] [address] Apr, [facility] [place] [facility] [address] [facility] [id number], [place] [address] Apr, [facility] [place] [address]00565100[place] [id number] Apr, [facility] [place] [facility] [address] [facility] [id number], [place] [address] Apr, [facility] [place] [facility] [address]00565100[place], [place] [address] Apr, [facility] [place] [id number], [place] [id number] Apr, [facility] [place] [facility] [address]00565100[place], [place] [address] Apr, [facility] [place] [facility] [address] [facility] [id number], [place] [address] Apr, [facility] [place] [facility] [address]00565100[place], [place] [address] Apr, [facility] [place] [id number], [place] [id number] Apr, [facility] [place] [facility] [address] [facility] [id number], [place] [address] Apr, [facility] [place] [id number], [place] 711886136 Apr, [facility] [place] [facility] [address] [facility] [id number], [place] [address] Apr, [facility] [place] [address] [facility] [id number], [place] 670846339 Apr, [facility] [place] [facility] [address]00565100[place], [place] [address] Apr, [facility] [place] [facility] [address] [facility] [id number], [place] [address] Apr, [facility] [address] [facility] [id number], [place] [address] Apr, [facility] [place] [address] [id number][place] 988902089 Apr, [facility] [address] [facility] [id number], [place] [address] Mar, [facility] [address] [facility] [id number], [place] [address] Mar, [facility] [place] [address] [id number] [place] [id number] Mar, [facility] [place] [address] [id number] [place] 517560244 Mar, [facility] [address] [id number] [place] 309629735 Mar, [facility] [address] [id number] [place] [id number] Feb, [facility] [place] [address] [id number] [place] 420135246 Feb, [facility] [place] [address] [id number] [place] [id number] Feb, [facility] [address] [facility] [id number], [place] [address] Feb, [facility] [place] [address] [id number], [place] 303481651 Feb, [facility] [address] [id number] [place] 956677162 Feb, [facility] [address] [id number] [place] 610458033 Feb, [facility] [address] [id number] [place] 377934649 Feb, [facility] [place] [address] [id number] [place] 742338632 Feb, [facility] [place] [address] [id number] [place] 460003826 Jan, [facility] [place] [address] [id number] [place] [id number] Jan, [facility] [place] [address] [id number] [place] 356650677 Jan, [facility] [place] [address] [id number] [place] 909084297 Jan, [facility] [place] [address] [id number] [place] [id number] Jan, [facility] [address], [place] [address] Jan, [facility] [place] [address] [id number] [place] [id number] Jan, [facility] [place] [address] [id number] [place] [id number] Jan, [facility] [place] [address] [id number] [place] [id number] Dec, [facility] [place] [address] [id number] [place] [id number] November, [facility] [place] [address] [id number] [place] [id number] November, [facility] [place] [address] [id number] [place] [id number] November, [facility] [place] [address] [id number] [place] [id number] November, [facility] [place] [address] [id number] [place] [id number] November, [facility] [place] [address] [id number] [place] [id number] November, [facility] [place] [address] [id number] [place] [id number] Jul, [facility] [place] [address] [id number] [place] [id number] Jul, [facility] [place] [address] [id number] [place] [id number] Jul, [facility] [place] [address] [id number] [place] [id number] Jun, [facility] [address], [place] [address] Jun, [facility] [place] [address] [id number] [id number] May, [facility] [address] [facility] [id number], [place] [address] May, [facility] [address] [id number][place] [id number] May, [facility] [address] [facility] [id number], [place] [address] May, [facility] [place] [address] [id number] [id number] May, [facility] [address] [facility] [id number], [place] [address] May, [facility] [place] [address] [facility] [id number][place] [id number] Apr, [facility] [address], [place] [address] Apr, [facility] [address] [facility] [id number], [place] [address] 18 Apr, 2012 [facility] [place] [address] [id number][place] [id number] Apr, [facility] [place] [address] [id number][place] [id number] Apr, [facility] [address] [facility] [id number], [place] [address] Apr, [facility] [address] [facility] [id number], [place] [address] Apr, [facility] [place] [address] [id number][place] [id number] Apr, [facility] [address] [facility] [id number], [place] [address] 10 Apr, 2012 [facility] [place] [address] [id number][place] [id number] 09 Apr, 2012 [facility] [place] [address] [id number] [place] [id number] Apr, [facility] [place] [address] [id number] [place] [id number] Mar, [facility] [place] [address] [id number] [place] [id number] Feb, [facility] [place] [address] [id number] [place] [id number] Jan, [facility] [place] [address] [id number] [place] [id number] Dec, [facility] [place] [address] [id number] [place] [id number] Dec, [facility] [place] [address] [id number] [place] [id number] Dec, [facility] [place] [address] [id number] [place] [id number] Dec, [facility] [place] [address] [id number] [place] [id number] Dec, [facility] [place] [address] [id number] [place] [id number] November, [facility] [place] [address] [id number] [place] [id number] November, [facility] [place] [address] [id number] [place] [id number] November, [facility] [address] [facility] [id number], [place] [address] November, [facility] [place] [address] [id number] [place] [id number] November, [facility] [place] [address] [id number] [place] [id number] November, [facility] [place] [address] [id number] [place] [id number] Oct, [facility] [place] [address] [id number] [place] [id number] Oct, [facility] [address] [id number] [place] [id number] Oct, [facility] [address] [id number] [place] [id number] Oct, [facility] [address] [id number] [place] [id number] Oct, [facility] [address] [id number] [place] [id number] Oct, [facility] [address] [id number] [place] [id number] Sep, [facility] [address] [id number] [place] [id number] Aug, [facility] [address] [id number] [place] [id number] Aug, [facility] [address] [id number] [place] [id number] Jul, [facility] [place] [facility] [address] [facility] [id number], [place] [address] Jun, [facility] [place] [facility] [address] [id number] [address] Jun, [facility] [place] [facility] [id number], [place] [address] Jun, [facility] [place] [facility] [id number], [place] [address] Jun, [facility] [place] [facility] [id number], [place] [address] May, [facility] [place] [facility] [id number], [place] [address] May, [facility] [place] [facility] [address] [id number], [place] [address] Apr, [facility] [place] [facility] [id number], [place] [address] Apr, [facility] [place] [facility] [id number], [place] [address] Apr, [facility] [place] [facility] [id number], [place] [address] Feb, [facility] [place] [facility] [id number] [address] 15 Aug, 2010 [facility] [address] [id number] [place] [address] 18 Jul, 2010 [facility] [place] [facility] [address] [id number] [place] [address] 30 Jun, 2010 [facility] [address] [id number] [place] [address] 29 May, 2010 [facility] [place] [facility] [address] [id number] [place] [address] May, [facility] [address] [id number] [place] [address] May, [facility] [address] [facility] [id number] [place] [address] May, [facility] [address] [facility] [id number] [place] [address] May, [facility] [address] [id number] [place] [address] 16 Aug, 2009 [facility] [address] [facility] [id number] [place] [address] Jun, [facility] [address] [facility] [id number] [place] [address] Jun, [facility] [place] [facility] [address] [facility] [id number] [place] [address] Jun, [facility] [place] [facility] [address] [id number] [place] [address] 24 May, 2009 [facility] [place] [facility] [address] [id number] [place] [address] 28 Apr, 2009 [facility] [place] [facility] [address] [facility] [id number] [place] [address] Apr, [facility] [place] [facility] [address] [facility] [id number] [place] [address] Apr, [facility] [address] [facility] [id number], [place] [address] Jan, [facility] [address] [facility] [id number], [place] [address] Oct, [facility] [address] [facility] [id number], [place] [address] May, [facility] [address] [facility] [id number], [place] [address] May, IMMUNIZATIONS No Known Immunizations SOCIAL HISTORY Never Assessed REASON FOR VISIT EMR-[facility] PLAN OF CARE VITAL SIGNS MEDICATIONS Unknown [...] Dialysis [facility] 2012 -Dr. Simon now [facility] Medical History Colonoscopy (polyps 2 ) [...]
--- OUTSIDE RECORDS SUMMARY | 2018-12-28 17:40 | XMS REPORT ---
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 Active 671823026 Problem Chronic pain syndrome G89.4 Active 964702761 Problem Sleep apnea in adult G47.33 Active 82960546 Problem Diabetic polyneuropathy associated with type 2 diabetes mellitus E11.42 Active 87700766 Problem Primary insomnia F51.01 Active 0118139 Problem Chronic obstructive pulmonary disease, unspecified COPD type J44.9 Active 67499298 Problem Right carpal tunnel syndrome G56.01 Active 457981744907968 Problem Gastroesophageal reflux disease without esophagitis K21.9 Active 593354576 Problem 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 Active 842652486428779 Problem Chronic kidney disease, stage 4 (severe) N18.4 Active 543606689 Problem Type 2 diabetes mellitus with hyperglycemia E11.65 Active 107610997062466 Problem Psoriasis of scalp L40.9 Active 228180342 Problem Carpal tunnel syndrome, bilateral G56.03 Active 00307301373679965 Problem Depression, unspecified depression type F32.9 Active 20190157 Problem Type 2 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.29 Active 105900449 Problem Fibromyalgia M79.7 Active 979317518 Problem Oxygen desaturation during sleep G47.34 Active 816572792 Problem Anemia in other chronic diseases classified elsewhere D63.8 Active 977536960 Problem History of DVT (deep vein thrombosis) Z86.718 Active 008351069 Problem Paresthesia of right upper extremity R20.2 Active 25279392 Problem prison 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 Active 396349772 Problem Supplemental oxygen dependent Z99.81 Active 494505116739 Problem Bilateral lower extremity edema R60.0 Active 843001215 ALLERGIES No Information ENCOUNTERS Encounter Location Date Diagnosis [facility] [address] [address] Apr, [facility] [address] [address] Feb, [facility] [id number] [place] [address] Feb, [facility] [address] [address] Jan, [facility] [address] [address] Jan, [facility] [address] [place] [address] Jan, [address] [id number] Jan, [facility] [address] [address] Jan, [facility] [address] [address] Jan, [facility] [address] [address] Jan, Essential hypertension I10 [facility] [address] [address] Jan, Chronic obstructive pulmonary disease, unspecified COPD type J44.9 [facility] [id number] [address] Jan, [facility] [id number] [address] Jan, [facility] [id number] [address] Jan, Type 2 diabetes mellitus with other diabetic kidney complication E11.29 ; Anemia in other chronic diseases classified elsewhere D63.8 ; Chronic obstructive pulmonary disease, unspecified COPD type J44.9 and BMI 60.0-69.9, adult Z68.44 [facility] [address] [address] Jan, [facility] [id number] [address] Jan, [facility] [id number] [id number] Jan, [facility] [id number] [place] [id number] Dec, [facility] [id number] [place] [id number] Dec, [facility] [address] [place] [id number] Dec, Essential hypertension I10 ; Type 2 diabetes mellitus with other diabetic kidney complication E11.29 ; Depression, unspecified depression type F32.9 ; Supplemental oxygen dependent Z99.81 ; Chronic pain syndrome G89.4 ; Fibromyalgia M79.7 ; Carpal tunnel syndrome, bilateral G56.03 and Chronic kidney disease, stage 4 (severe) N18.4 [facility] [id number] [address] Dec, Essential hypertension I10 [facility] [id number] [address] November, Type 2 diabetes mellitus with other diabetic kidney complication E11.29 [facility] [id number] [address] November, Chronic pain syndrome G89.4 [facility] [address] [address] November, [facility] [id number] [address] November, [facility] [id number] [address] November, [facility] [address] [address] Oct, Type 2 diabetes mellitus with other diabetic kidney complication E11.29 [place] [address] [address] Oct, Primary insomnia F51.01 [facility] [id number] [id number] Oct, Bilateral lower extremity edema R60.0 [place] [address] [address] Oct, [place] [address] [address] Sep, Type 2 diabetes mellitus with other diabetic kidney complication E11.29 and Chronic obstructive pulmonary disease, unspecified COPD type J44.9 [place] [address] [address] 15 Aug, 2017 Type 2 diabetes mellitus with other diabetic kidney complication E11.29 [address] [place] [address] 12 Aug, 2017 Gastroesophageal reflux disease without esophagitis K21.9 ; prison current use of anticoagulant Z79.01 ; Chronic pain syndrome G89.4 ; Essential hypertension I10 and Type 2 diabetes mellitus with other diabetic kidney complication E11.29 [place] [address] [address] 08 Aug, 2017 Chronic pain syndrome G89.4 [place] [address] [address] Aug, Type 2 diabetes mellitus with other diabetic kidney complication E11.29 [place] [address] [address] Jul, Diabetic polyneuropathy associated with type 2 diabetes mellitus E11.42 [place] [address] [address] Jul, Primary insomnia F51.01 [facility] [address] [address] Jul, [place] [address] [address] Jul, Type 2 diabetes mellitus with other diabetic kidney complication E11.29 and Chronic obstructive pulmonary disease, unspecified COPD type J44.9 [place] [address] [address] 08 Jul, 2017 Type 2 diabetes mellitus with other diabetic kidney complication E11.29 [place] [id number] [address] Jun, Type 2 diabetes mellitus with other diabetic kidney complication E11.29 [place] [id number] [address] 27 Jun, 2017 [place] [id number] [address] Jun, Chronic obstructive pulmonary disease, unspecified COPD type J44.9 [place] [id number] [address] May, Type 2 diabetes mellitus with other diabetic kidney complication E11.29 [place] [address] [address] May, 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 and Essential hypertension I10 [place] [id number] [address] May, Anemia in other chronic diseases classified elsewhere D63.8 ; Chronic obstructive pulmonary disease, unspecified COPD type J44.9 ; Oxygen desaturation during sleep G47.34 ; Sleep apnea in adult G47.33 and Supplemental oxygen dependent Z99.[address] [address] May, Type 2 diabetes mellitus with other diabetic kidney complication E11.29 ; Essential hypertension I10 ; Chronic pain syndrome G89.4 ; BMI 40.0- 44.9, adult Z68.41 ; Gastroesophageal reflux disease without esophagitis K21.9 ; 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 ; 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 ; Diabetic polyneuropathy associated with type 2 diabetes mellitus E11.42 ; Edema of both legs R60.0 and Supplemental oxygen dependent Z99.81 [place] [address] [address] May, [place] [id number] [address] May, Essential hypertension I10 and Gastroesophageal reflux disease without esophagitis K21.9 [place] [address] [address] May, [place] [address] [address] May, Type 2 diabetes mellitus with other diabetic kidney complication E11.29 and prison current use of anticoagulant Z79.01 [place] [id number] [address] Apr, Chronic pain syndrome G89.4 and Essential hypertension I10 [place] [id number] [address] Apr, Type 2 diabetes mellitus with other diabetic kidney complication E11.29 [place] [id number] [address] Apr, Type 2 diabetes mellitus with other diabetic kidney complication E11.29 [place] [id number] [address] Apr, Essential hypertension I10 [place] [id number] [address] Apr, Gastroesophageal reflux disease without esophagitis K21.9 [place] [id number] [address] Apr, Type 2 diabetes mellitus with other diabetic kidney complication E11.29 [place] [id number] [address] Apr, Type 2 diabetes mellitus with other diabetic kidney complication E11.29 and 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 [facility] [address] [address] 27 Mar, 2017 Encounter for immunization Z23 and Preoperative examination Z01.818 [facility] [id number] [address] Mar, [facility] [id number] [address] Mar, Type 2 diabetes mellitus with other diabetic kidney complication E11.29 [place] [id number] [address] 08 Mar, 2017 Type 2 diabetes mellitus with other diabetic kidney complication E11.29 [place] [id number] [address] Mar, Gastroesophageal reflux disease without esophagitis K21.9 [place] [id number] [address] Mar, Essential hypertension I10 [place] [id number] [address] Feb, 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 [facility] [id number] [address] Feb, Type 2 diabetes mellitus with other diabetic kidney complication E11.29 [facility] [id number] [address] Feb, Type 2 diabetes mellitus with other diabetic kidney complication E11.29 [place] [id number] [address] Feb, Type 2 diabetes mellitus with other diabetic kidney complication E11.29 [place] [id number] [address] Feb, Gastroesophageal reflux disease without esophagitis K21.9 [facility] [id number] [address] Feb, Type 2 diabetes mellitus with other diabetic kidney complication E11.29 [facility] [address] [address] Feb, prison current use of anticoagulant Z79.01 [facility] [address] [address] Jan, Type 2 diabetes mellitus with other diabetic kidney complication E11.29 [facility] [address] [address] Jan, Type 2 diabetes mellitus with other diabetic kidney complication E11.29 [facility] [address] [address] Jan, Chronic pain syndrome G89.4 [facility] [address] [address] Jan, [facility] [address] [address] Jan, [facility] [address] [address] Jan, [facility] [id number] [address] Jan, [facility] [address] [address] Jan, Primary insomnia F51.01 ; Type 2 diabetes mellitus with other diabetic kidney complication E11.29 ; Chronic pain syndrome G89.4 and Essential hypertension I10 [facility] [address] [address] Jan, Primary insomnia F51.01 [facility] [address] [address] Jan, Type 2 diabetes mellitus with other diabetic kidney complication E11.29 [facility] [address] [address] Jan, [facility] [id number] [address] Jan, Chronic obstructive pulmonary disease, unspecified COPD type J44.9 [facility] [id number] [address] Jan, Essential hypertension I10 ; Type 2 diabetes mellitus with other diabetic kidney complication E11.29 ; Chronic obstructive pulmonary disease, unspecified COPD type J44.9 ; Chronic kidney disease, stage 4 (severe) N18.4 ; Right carpal tunnel syndrome G56.01 ; 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 ; prison (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 and Diabetic polyneuropathy associated with type 2 diabetes mellitus E11.42 [place] [id number] [address] Jan, Gastroesophageal reflux disease without esophagitis K21.9 [place] [id number] [address] Dec, [facility] [id number] [address] Dec, [facility] [id number] [address] Dec, prison current use of anticoagulant Z79.01 ; Chronic pain syndrome G89.4 and Essential hypertension I10 [facility] [id number] [address] Dec, [facility] [id number] [address] Dec, Type 2 diabetes mellitus with other diabetic kidney complication E11.29 [facility] [address] [address] Dec, [facility] [id number] [address] Dec, Gastroesophageal reflux disease without esophagitis K21.9 [facility] [id number] [address] November, Type 2 diabetes mellitus with other diabetic kidney complication E11.29 [facility] [address] [address] November, [facility] [id number] [address] November, Type 2 diabetes mellitus with other diabetic kidney complication E11.29 [facility] [id number] [address] November, [facility] [id number] [address] November, Type 2 diabetes mellitus with other diabetic kidney complication E11.29 [facility] [id number] [address] November, [facility] [id number] [address] Oct, Essential hypertension I10 [facility] [id number] [address] Oct, Psoriasis of scalp L40.9 [facility] [address] [address] Oct, Essential hypertension I10 and Chronic pain syndrome G89.4 [facility] [address] [address] Oct, [facility] [address] [address] Sep, Type 2 diabetes mellitus with other diabetic kidney complication E11.29 [facility] [address] [address] Sep, [facility] [id number] [address] Sep, Type 2 diabetes mellitus with other diabetic kidney complication E11.29 [facility] [address] [address] 20 Mar, 2017 Type 2 diabetes mellitus with other diabetic kidney complication E11.29 [place] [id number] [address] 09 Sep, 2017 Type 2 diabetes mellitus [...] extremity R20.2 and Psoriasis of scalp L40.9 [place] [id number] [address] Sep, [address] [address] Aug, Essential hypertension I10 [place] [address] [address] Aug, History of DVT (deep vein thrombosis) Z86.718 [place] [id number] [address] Aug, [place] [id number] [address] Jul, [place] [id number] [address] Jul, [place] [id number] [address] Jul, prison current use of anticoagulant Z79.01 ; Chronic pain syndrome G89.4 and Chronic kidney disease, stage 4 (severe) N18.4 [place] [id number] [address] Jul, [place] [address] [place] [address] Jul, [place] [address] [address] Jul, [place] [id number] [address] Jul, [place] [id number] [address] Jul, [place] [address] [address] Jul, Type 2 diabetes mellitus with other diabetic kidney complication E11.29 [place] [id number] [place] [address] Jul, History of DVT (deep vein thrombosis) Z86.718 [place] [id number] [address] Jun, [place] [address] [address] Jun, History of DVT (deep vein thrombosis) Z86.718 [place] [id number] [address] 15 Jun, 2016 Post traumatic stress disorder (PTSD) F43.10 [place] [id number] [address] 07 Jun, 2016 Type 2 diabetes mellitus [...] pain M79.641 and Right wrist pain M25.531 [facility] [id number] [address] May, [facility] [id number] [address] May, [facility] [address] [address] May, [facility] [id number] [address] May, [facility] [id number] [address] May, Anemia in other chronic diseases classified elsewhere D63.8 [facility] [address] [address] May, [facility] [id number] [address] Apr, [facility] [id number] [address] 27 Mar, 2016 Dermatofibroma D23.9 [facility] [id number] [address] 20 Mar, 2016 [facility] [id number] [address] 14 Mar, 2016 Chronic pain syndrome G89.4 [facility] [id number] [address] 09 Mar, 2016 [facility] [id number] [address] 07 Mar, 2016 [facility] [id number] [address] 06 Mar, 2016 [facility] [address] [address] [address] Feb, [facility] [address] [address] Feb, [facility] [address] [address] Feb, [facility] [id number] [id number] Feb, [facility] [id number] [place] [id number] Feb, [facility] [id number] [place] [id number] Feb, [facility] [id number] [place] [id number] Feb, Type 2 diabetes mellitus with other diabetic kidney complication E11.29 ; Diabetic polyneuropathy associated with type 2 diabetes mellitus E11.42 ; Iron deficiency anemia due to chronic blood loss D50.0 ; Chronic obstructive pulmonary disease, unspecified COPD type J44.9 ; 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 ; History [...] N18.4 [facility] [address]005[address] [address] Feb, Skin tags, multiple acquired L91.8 [facility] [id number] [place] [address] Jan, [facility] [address] [id number] Jan, Dental examination Z01.20 [facility] [id number] [place] [address] Jan, [facility] [address] [place] [id number] [place] [address] Jan, Type 2 diabetes mellitus with other diabetic kidney complication E11.29 ; Diabetic polyneuropathy associated with type 2 diabetes mellitus E11.42 ; Iron deficiency anemia due to chronic blood loss D50.0 ; Chronic obstructive pulmonary disease, unspecified COPD type J44.9 ; 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 ; History of DVT (deep vein thrombosis) Z86.718 ; Chronic pain syndrome G89.4 ; Oxygen desaturation during sleep G47.34 ; Sleep apnea in adult G47.33 ; Gastroesophageal reflux disease without esophagitis K21.9 ; Essential hypertension I10 ; Primary insomnia F51.01 ; Depression, unspecified depression type F32.9 ; Skin lesion L98.9 and Renal failure, chronic, stage 4 (severe) N18.[address] [address] Dec, Diabetes type 2, uncontrolled E11.65 [place] [id number] [place] [address] Dec, [place] [id number] [place] [address] Dec, Type 2 diabetes mellitus with other diabetic kidney complication E11.29 ; Diabetic polyneuropathy associated with type 2 diabetes mellitus E11.42 ; Iron deficiency anemia due to chronic blood loss D50.0 ; Chronic obstructive pulmonary disease, unspecified COPD type J44.9 ; 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 ; History of DVT (deep vein thrombosis) Z86.718 ; Chronic pain syndrome G89.4 ; Oxygen desaturation during sleep G47.34 ; Sleep apnea in adult G47.33 ; Gastroesophageal reflux disease without esophagitis K21.9 ; Essential hypertension I10 ; Primary insomnia F51.01 and Depression, unspecified depression type F32.9 [facility] [address] [id number] [id number] Dec, Dental caries K02.9 [facility] [id number] [place] [address] [id number] Dec, [facility] [address] [id number] [place] [id number] Dec, Dental examination Z01.20 [facility] [address] [id number] [place] [id number] November, Dental examination Z01.20 and Dental caries K02.9 [facility] [address] [id number], [place] [id number] Oct, [facility] [address] [id number] [place] [address] [id number] Oct, [facility] [address] [id number], [place] [id number] Sep, [facility] [id number] [place] [address] [id number] Sep, [facility] [id number] [place] [address] [id number] Sep, [facility] [id number] [place] [address] [id number] Sep, Other chronic pain 338.29 [facility] [address] [id number], [place] [id number] Aug, Diabetes type 2, uncontrolled E11.65 and Morbid obesity due to excess calories E66.01 [facility] [address] [id number], [place] [id number] Aug, Hair loss L65.9 [facility] [address] [id number], [place] [id number] Aug, [facility] [address] [id number], [place] [id number] Jul, [facility] [address] [id number], [place] [id number] Jul, [facility] [address] [id number] [place] [address] [id number] Jun, [facility] [address] [id number] [place] [address] [id number] Jun, Hair loss L65.9 and Disorder of the skin and subcutaneous tissue, unspecified L98.9 [id number] [place] [address] [phone] May, Type 2 diabetes mellitus with other diabetic kidney complication E11.29 ; Type 2 diabetes mellitus with hyperglycemia E11.65 ; Morbid obesity due to excess calories E66.01 and Essential hypertension I10 [place] [id number] [place] [address] [id number] May, Diabetes type 2, uncontrolled E11.65 ; Encounter for immunization Z23 and Morbid obesity due to excess calories E66.01 [place] [id number] [place] [address] [phone] May, [facility] [address] [address] Apr, [address] [id number] Apr, Hyperglycemia R73.[address] [id number] Apr, [address] [id number] Apr, Depression F32.9 ; Encounter for immunization Z23 ; Hyperglycemia R73.9 and Anemia in other chronic diseases classified elsewhere D63.8 [facility] [address] [place] [address] [id number] Mar, [id number] [place] [address] [id number] Feb, Positive occult stool blood test 792.1 [place] [id number] [place] [address] [id number] Feb, Depression 311 ; Other chronic pain 338.29 and Diabetes with renal manifestations, type II or unspecified type, not stated as uncontrolled 250.40 [facility] [id number] [address] Feb, Occult blood in stools 792.1 [id number] [place] [address] [phone] Feb, Anemia 285.9 ; Occult blood positive stool 792.1 ; Unspecified essential hypertension 401.9 and Other chronic pain 338.29 [facility] [id number], [place] [id number] Feb, [facility] [id number] [place] [address] [id number] Feb, Anemia 285.9 [facility] [id number], [place] [id number] Feb, [facility] [id number] [place] [address] [id number] Feb, [facility] [id number] [place] [address] [phone] Feb, Diabetes with renal manifestations, type II or unspecified type, not stated as uncontrolled 250.40 ; Other chronic pain 338.29 ; Unspecified essential hypertension 401.9 ; Anemia 285.9 and Depression 311 [facility] [id number] [place] [address] [phone] Jan, [facility] [id number] [place] [address] [id number] Jan, Anemia 285.9 and Follow up V67.9 [facility] [id number], [place] [id number] Jan, [facility] [id number] [place] [address] [id number] Jan, [facility] [id number] [place] [address] [id number] Jan, [facility] [id number] [place] [address] [id number] Dec, [facility] [address]00565100[place] [address] Oct, [facility] [id number] [phone] Oct, [facility] [id number] [address] Sep, [facility] [address] [id number], [place] [id number] Sep, [facility] [id number] [address] Sep, [facility] [address] [id number], [place] [id number] Aug, [facility] [place] [facility] [address] [facility] [id number] [address] Aug, [facility] [place] [facility] [address] [facility] [id number] [place] [address] Aug, [facility] [place] [address] [id number], [place] [id number] Aug, [facility] [place] [facility] [address] [facility] [id number] [place] [address] Aug, [facility] [place] [facility] [address] [id number] [address] Aug, [facility] [place] [address] [id number], [place] [id number] Aug, [facility] [place] [facility] [address]005[address]100[place] [address] Aug, [facility] [place] [address] [facility] [id number], [place] [id number] Jul, [facility] [place] [facility] [address]00565100[place] [address] Jul, [facility] [place] [facility] [address] [id number] [address] Jul, [facility] [address] [id number], [place] [id number] Jul, [facility] [place] [facility] [address] [facility] [id number] [address] Jul, [facility] [address] [facility] [id number], [place] [id number] Jul, [facility] [place] [facility] [address] [facility] [id number] [address] Jul, [facility] [address] [id number], [place] [id number] Jun, [facility] [address] [facility] [id number], [place] [id number] Jun, [facility] [place] [facility] [address] [facility] [id number] [place] [address] Jun, [facility] [place] [facility] [address] [facility] [id number] [place] [address] Jun, [facility] [address] [facility] [id number], [place] [id number] Jun, [facility] [place] [facility] [address] [facility] [id number] [place] [address] Jun, [facility] [place] [address] [facility] [id number], [place] [id number] May, [facility] [place] [facility] [address] [id number] [address] May, [facility] [place] [facility] [address]00565100[place] [address] May, [facility] [place] [address] [facility] [id number], [place] [id number] Apr, [facility] [place] [facility] [address] [facility] [id number] [place] [address] Apr, [facility] [address] [facility] [id number], [place] [id number] Apr, [facility] [address] [facility] [id number], [place] [id number] Apr, [facility] [place] [facility] [address] [facility] [id number] [place] [address] Apr, [facility] [place] [facility] [address] [facility] [id number] [place] [address] Apr, [facility] [place] [address] [facility] [id number], [place] [id number] Mar, [facility] [place] [facility] [address] [facility] [id number] [place] [address] Mar, [facility] [place] [address] [facility] [id number], [place] [id number] Mar, [facility] [place] [facility] [address] [id number] [place] [address] Mar, [facility] [place] [address] [id number] [place] [id number] Mar, [facility] [place] [facility] [address] [facility] [id number] [place] [address] Mar, [facility] [place] [address] [id number] [place] [id number] Mar, [facility] [place] [facility] [address] [id number] [place] [address] Mar, [facility] [address] [id number] [place] [id number] Mar, [facility] [place] [facility] [address] [facility] [id number] [place] [address] Mar, [facility] [place] [address] [facility] [id number] [place] [id number] Feb, [facility] [place] [facility] [address] [facility] [id number] [place] [address] Feb, [facility] [place] [address] [facility] [id number], [place] [id number] Jan, [facility] [place] [facility] [address] [facility] [id number] [address] Jan, [facility] [place] [address] [facility] [id number] [place] [id number] Jan, [facility] [place] [facility] [address] [facility] [id number] [address] Jan, [facility] [place] [address] [facility] [id number], [place] [id number] Jan, [facility] [place] [facility] [address] [facility] [id number] [place] [address] Jan, [facility] [place] [facility] [address] [facility] [id number] [place] [address] Dec, [facility] [place] [facility] [address] [facility] [id number] [place] [address] Dec, [facility] [address] [id number] [place] [id number] November, [facility] [place] [facility] [address] [id number] [place] [address] November, [facility] [address] [id number] [place] [id number] November, [facility] [place] [facility] [address] [id number] [place] [address] November, [facility] [place] [address] [id number] [place] [id number] Oct, [facility] [place] [facility] [address] [id number] [place] [address] Oct, [facility] [place] [facility] [address] [facility] [id number] [place] [address] Oct, [facility] [place] [facility] [address] [facility] [id number] [place] [address] Oct, [facility] [place] [facility] [address] [id number] [place] [address] Oct, [facility] [place] [facility] [address] [facility] [id number] [place] [address] Oct, [facility] [place] [address] [id number] [place] 723702676 Sep, [facility] [place] [address] [id number] [place] 368435503 Sep, [facility] [place] [facility] [address] [id number] [place] [address] Sep, [facility] [place] [facility] [address] [id number] [place] [address] Sep, [facility] [place] [address] [id number] [place] 130593719 Sep, [facility] [place] [facility] [address] [facility] [id number] [place] [address] Sep, [facility] [place] [facility] [address] [facility] [id number] [address] Aug, [facility] [place] [facility] [address] [facility] [id number] [place] [address] Aug, [facility] [place] [address] [facility] [id number], [place] [id number] Aug, [facility] [place] [address] [facility] [id number] [place] [id number] Aug, [facility] [place] [facility] [address] [facility] [id number] [address] Aug, [facility] [place] [address] [facility] [id number] [place] 635242310 Aug, [facility] [place] [facility] [address]00565100[place] [address] Aug, [facility] [place] [address] [id number], [place] [id number] Aug, [facility] [place] [facility] [address]00565100[place] [address] Aug, [facility] [place] [address] [facility] [id number], [place] [id number] Aug, [facility] [place] [facility] [address]00565100[place] [address] Aug, [facility] [place] [address] [id number], [place] 393562494 Aug, [facility] [place] [facility] [address]00565100[place] [address] Aug, [facility] [place] [facility] [address] [facility] [id number] [place] [address] Jul, [facility] [place] [address] [facility] [id number], [place] [id number] Jun, [facility] [place] [facility] [address] [id number] [address] Jun, [facility] [place] [facility] [address]00565100[place] [address] Jun, [facility] [place] [facility] [address] [id number] [place] [address] Jun, [facility] [place] [address] [facility] [id number], [place] [id number] Jun, [facility] [place] [facility] [address] [id number] [place] [address] Jun, [facility] [place] [facility] [address] [facility] [id number] [place] [address] Jun, [facility] [place] [address] [facility] [id number] [place] [id number] Jun, [facility] [place] [facility] [address] [facility] [id number] [place] [address] Jun, [facility] [place] [facility] [address] [id number] [address] May, [facility] [place] [address] [id number], [place] [id number] May, [facility] [place] [facility] [address] [id number] [address] May, [facility] [place] [facility] [address] [id number] [address] May, [facility] [place] [facility] [address] [id number] [address] May, [facility] [place] [facility] [address] [facility] [id number] [place] [address] May, [facility] [place] [address] [facility] [id number], [place] 494281840 May, [facility] [place] [facility] [address] [facility] [id number] [place] [address] May, [facility] [place] [address] [facility] [id number], [place] 847893805 May, [facility] [place] [facility] [address] [facility] [id number] [place] [address] May, [facility] [place] [address] [facility] [id number], [place] 627852618 Apr, [facility] [place] [facility] [address] [facility] [id number] [place] [address] Apr, [facility] [place] [facility] [address] [facility] [id number] [place] [address] Apr, [facility] [address]00565100[place] [address] Apr, [facility] [place] [facility] [address] [facility] [id number] [address] Apr, [facility] [place] [facility] [address]00565100[place] [address] Apr, [facility] [place] [id number], [place] [id number] Apr, [facility] [place] [facility] [address]00565100[place] [address] Apr, [facility] [place] [facility] [address] [facility] [id number] [place] [address] Apr, [facility] [place] [facility] [address]00565100[place] [address] Apr, [facility] [place] [id number], [place] 534413943 Apr, [facility] [place] [facility] [address] [facility] [id number] [address] Apr, [facility] [place] [id number], [place] 952321711 Apr, [facility] [place] [facility] [address] [facility] [id number] [address] Apr, [facility] [place] [facility] [id number], [place] [id number] Apr, [facility] [place] [facility] [address]00565100[place] [address] Apr, [facility] [place] [facility] [address] [facility] [id number] [place] [address] Apr, [facility] [address] [facility] [id number] [place] [address] Apr, [facility] [place] [address] [id number], [place] 073543232 Apr, [facility] [address] [facility] [id number] [place] [address] Mar, [facility] [address] [facility] [id number] [place] [address] Mar, [facility] [place] [address] [id number] [place] 899116990 Mar, [facility] [place] [address] [id number] [place] 965421581 Mar, [facility] [address] [id number] [place] [id number] Mar, [facility] [address] [id number] [place] 687702490 Feb, [facility] [address] [id number] [place] 781498007 Feb, [facility] [address] [id number] [place] 323837893 Feb, [facility] [address] [facility] [id number] [place] [address] Feb, [facility] [place] [address] [id number], [place] 323290347 Feb, [facility] [address] [id number] [place] 860227131 Feb, [facility] [address] [id number] [place] 563923083 Feb, [facility] [address] [id number] [place] [id number] Feb, [facility] [place] [address] [id number] [place] [id number] Feb, [facility] [place] [address] [id number] [place] [id number] Jan, [facility] [place] [address] [id number] [place] [id number] Jan, [facility] [place] [address] [id number] [place] [id number] Jan, [facility] [place] [address] [id number] [place] [id number] Jan, [facility] [place] [address] [id number] [place] [id number] Jan, [facility] [address]00565[address] [address] Jan, [facility] [place] [address] [id number] [place] [id number] Jan, [facility] [place] [address] [id number] [place] [id number] Jan, [facility] [place] [address] [id number] [place] [id number] Dec, [facility] [place] [address] [id number] [place] [id number] November, [facility] [place] [address] [id number] [place] [id number] November, [facility] [place] [address] [id number] [place] [id number] November, [facility] [place] [address] [id number] [place] [id number] November, [facility] [place] [address] [id number] [place] [id number] November, [facility] [place] [address] [id number] [place] [id number] November, [facility] [place] [address] [id number] [place] [id number] Jul, [facility] [place] [address] [id number] [place] [id number] Jul, [facility] [place] [address] [id number] [place] [id number] Jul, [facility] [place] [address] [id number] [place] [id number] Jun, [facility] [address]00565100[place] [address] Jun, [facility] [place] [address] [id number] [id number] May, [facility] [address] [facility] [id number] [address] May, [facility] [place] [address] [id number] [id number] May, [facility] [address] [facility] [id number] [address] May, [facility] [place] [address] [id number][place] [id number] May, [facility] [address] [facility] [id number] [address] May, [facility] [place] [address] [facility] [id number][place] [id number] Apr, [facility] [address]00565100[place] [address] Apr, [facility] [address] [facility] [id number] [address] 18 Apr, 2012 [facility] [address] [id number][place] [id number] Apr, [facility] [address] [id number][place] [id number] Apr, [facility] [address] [facility] [id number] [address] Apr, [facility] [address] [facility] [id number] [address] Apr, [facility] [address] [id number] [id number] Apr, [facility] [address] [facility] [id number] [address] 10 Apr, 2012 [facility] [address] [id number][place] [id number] 09 Apr, 2012 [facility] [place] [address] [id number] [place] [id number] Apr, [facility] [place] [address] [id number] [place] [id number] Mar, [facility] [place] [address] [id number] [place] [id number] Feb, [facility] [place] [address] [id number] [place] [id number] Jan, [facility] [place] [address] [id number] [place] [id number] Dec, [facility] [place] [address] [id number] [place] [id number] Dec, [facility] [place] [address] [id number] [place] [id number] Dec, [facility] [place] [address] [id number] [place] [id number] Dec, [facility] [place] [address] [id number] [place] [id number] Dec, [facility] [place] [address] [id number] [place] [id number] November, [facility] [place] [address] [id number] [place] [id number] November, [facility] [place] [address] [id number] [place] [id number] November, [facility] [address] [facility] [id number] [address] November, [facility] [place] [address] [id number] [place] [id number] November, [facility] [place] [address] [id number] [place] [id number] November, [facility] [facility] [address] [id number] [place] [id number] Oct, [facility] [address] [id number] [place] [id number] Oct, [facility] [address] [id number] [place] [id number] Oct, [facility] [address] [id number] [place] [id number] Oct, [facility] [address] [id number] [place] [id number] Oct, [facility] [address] [id number] [place] [id number] Oct, [facility] [address] [id number] [place] [id number] Sep, [facility] [address] [id number] [place] [id number] Aug, [facility] [address] [id number] [place] [id number] Aug, [facility] [address] [id number] [place] [id number] Jul, [facility] [place] [facility] [address] [facility] [id number] [address] Jun, [facility] [place] [facility] [address] [id number] [address] Jun, [facility] [place] [facility] [id number] [address] Jun, [facility] [place] [facility] [id number] [address] Jun, [facility] [place] [facility] [id number] [address] May, [facility] [place] [facility] [id number] [address] May, [facility] [place] [facility] [address] [id number] [address] Apr, [facility] [place] [facility] [id number] [address] Apr, [facility] [place] [facility] [id number] [address] Apr, [facility] [place] [facility] [id number] [address] Feb, [facility] [place] [facility] [address] [id number] [place] [address] 15 Aug, 2010 [facility] [address] [id number] [place] [address] 18 Jul, 2010 [facility] [place] [facility] [address] [id number] [place] [address] 30 Jun, 2010 [facility] [address] [id number] [place] [address] 29 May, 2010 [facility] [place] [facility] [address] [id number] [place] [address] May, [facility] [address] [id number] [place] [address] May, [facility] [address] [facility] [id number] [place] [address] May, [facility] [address] [facility] [id number] [place] [address] May, [facility] [address] [id number] [place] [address] 16 Aug, 2009 [facility] [address] [facility] [id number] [place] [address] Jun, [facility] [address] [facility] [id number] [place] [address] Jun, [facility] [place] [facility] [address] [facility] [id number] [place] [address] Jun, [facility] [place] [facility] [address] [id number] [place] [address] 24 May, 2009 [facility] [place] [facility] [address] [id number] [place] [address] 28 Apr, 2009 [facility] [place] [facility] [address] [facility] [id number] [place] [address] Apr, [facility] [place] [facility] [address] [facility] [id number] [place] [address] Apr, [facility] [address] [facility] [id number] [address] Jan, [facility] [address] [facility] [id number] [address] Oct, [facility] [address] [facility] [id number] [address] May, [facility] [address] [facility] [id number] [address] May, IMMUNIZATIONS No Known Immunizations SOCIAL HISTORY [...] Dialysis [facility] Reveles 2012 -Dr. Simon now [facility] Medical History Colonoscopy (polyps 2 ) [...]
--- OUTSIDE RECORDS SUMMARY | 2018-12-28 17:42 | XMS REPORT ---
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 Active 801529967 Problem Chronic pain syndrome G89.4 Active 341993615 Problem Sleep apnea in adult G47.33 Active 62456432 Problem Diabetic polyneuropathy associated with type 2 diabetes mellitus E11.42 Active 49622201 Problem Primary insomnia F51.01 Active 3284189 Problem Chronic obstructive pulmonary disease, unspecified COPD type J44.9 Active 68441901 Problem Right carpal tunnel syndrome G56.01 Active 341814065054365 Problem Gastroesophageal reflux disease without esophagitis K21.9 Active 802540767 Problem 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 Active 976878294422200 Problem Chronic kidney disease, stage 4 (severe) N18.4 Active 549194622 Problem Type 2 diabetes mellitus with hyperglycemia E11.65 Active 825365223101467 Problem Psoriasis of scalp L40.9 Active 552488601 Problem Carpal tunnel syndrome, bilateral G56.03 Active 11938795625836048 Problem Depression, unspecified depression type F32.9 Active 10712968 Problem Type 2 diabetes mellitus with other diabetic kidney complication E11.29 Active 005330948 Problem Fibromyalgia M79.7 Active 747592360 Problem Oxygen desaturation during sleep G47.34 Active 795031102 Problem Anemia in other chronic diseases classified elsewhere D63.8 Active 146054334 Problem History of DVT (deep vein thrombosis) Z86.718 Active 029258668 Problem Paresthesia of right upper extremity R20.2 Active 01941623 Problem detention 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 Active 498110154 Problem Supplemental oxygen dependent Z99.81 Active 259658234967 Problem Bilateral lower extremity edema R60.0 Active 391368527 ALLERGIES No Information ENCOUNTERS Encounter Location Date Diagnosis [facility] [address] [address] Apr, [facility] [address] [address] Feb, [facility] [address] [place] [address] Feb, [facility] [address] [address] Jan, [facility] [address] [address] Jan, [facility] [address] [place] [address] Jan, [address] [id number] Jan, [facility] [address] [address] Jan, [facility] [address] [address] Jan, [facility] [address] [address] Jan, Essential hypertension I10 [facility] [address] [address] Jan, Chronic obstructive pulmonary disease, unspecified COPD type J44.9 [facility] [id number] [address] Jan, [facility] [id number] [address] Jan, [facility] [id number] [address] Jan, Type 2 diabetes mellitus with other diabetic kidney complication E11.29 ; Anemia in other chronic diseases classified elsewhere D63.8 ; Chronic obstructive pulmonary disease, unspecified COPD type J44.9 and BMI 60.0-69.9, adult Z68.44 [facility] [id number] [address] Jan, [facility] [id number] [place] [address] Jan, [facility] [id number] [id number] Jan, [facility] [id number] [place] [id number] Dec, [facility] [id number] [place] [id number] Dec, [facility] [address] [place] [id number] Dec, Essential hypertension I10 ; Type 2 diabetes mellitus with other diabetic kidney complication E11.29 ; Depression, unspecified depression type F32.9 ; Supplemental oxygen dependent Z99.81 ; Chronic pain syndrome G89.4 ; Fibromyalgia M79.7 ; Carpal tunnel syndrome, bilateral G56.03 and Chronic kidney disease, stage 4 (severe) N18.4 [facility] [id number] [place] [address] Dec, Essential hypertension I10 [facility] [id number] [place] [address] November, Type 2 diabetes mellitus with other diabetic kidney complication E11.29 [facility] [id number] [place] [address] November, Chronic pain syndrome G89.4 [facility] [address] [address] November, [facility] [id number] [place] [address] November, [facility] [id number] [place] [address] November, [facility] [address] [place] [address] Oct, Type 2 diabetes mellitus with other diabetic kidney complication E11.29 [facility] [address] [address] Oct, Primary insomnia F51.01 [facility] [id number] [id number] Oct, Bilateral lower extremity edema R60.0 [facility] [address] [place] [address] Oct, [facility] [address] [place] [address] Sep, Type 2 diabetes mellitus with other diabetic kidney complication E11.29 and Chronic obstructive pulmonary disease, unspecified COPD type J44.9 [facility] [address] [place] [address] 15 Aug, 2017 Type 2 diabetes mellitus with other diabetic kidney complication E11.29 [address] [place] [address] 12 Aug, 2017 Gastroesophageal reflux disease without esophagitis K21.9 ; detention current use of anticoagulant Z79.01 ; Chronic pain syndrome G89.4 ; Essential hypertension I10 and Type 2 diabetes mellitus with other diabetic kidney complication E11.29 [facility] [address] [address] 08 Aug, 2017 Chronic pain syndrome G89.4 [facility] [address] [address] Aug, Type 2 diabetes mellitus with other diabetic kidney complication E11.29 [facility] [address] [address] Jul, Diabetic polyneuropathy associated with type 2 diabetes mellitus E11.42 [facility] [address] [address] Jul, Primary insomnia F51.01 [facility] [address] [address] Jul, [facility] [address] [address] Jul, Type 2 diabetes mellitus with other diabetic kidney complication E11.29 and Chronic obstructive pulmonary disease, unspecified COPD type J44.9 [facility] [address] [address] 08 Jul, 2017 Type 2 diabetes mellitus with other diabetic kidney complication E11.29 [facility] [id number] [place] [address] Jun, Type 2 diabetes mellitus with other diabetic kidney complication E11.29 [facility] [id number] [place] [address] 27 Jun, 2017 [facility] [id number] [place] [address] Jun, Chronic obstructive pulmonary disease, unspecified COPD type J44.9 [facility] [id number] [place] [address] May, Type 2 diabetes mellitus with other diabetic kidney complication E11.29 [facility] [address] [address] May, 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 and Essential hypertension I10 [facility] [id number] [place] [address] May, Anemia in other chronic diseases classified elsewhere D63.8 ; Chronic obstructive pulmonary disease, unspecified COPD type J44.9 ; Oxygen desaturation during sleep G47.34 ; Sleep apnea in adult G47.33 and Supplemental oxygen dependent Z99.[address] [place] [address] May, Type 2 diabetes mellitus with other [...] legs R60.0 and Supplemental oxygen dependent Z99.81 [facility] [address] [address] May, [facility] [id number] [place] [address] May, Essential hypertension I10 and Gastroesophageal reflux disease without esophagitis K21.9 [facility] [address] [address] May, [facility] [address] [address] May, Type 2 diabetes mellitus with other diabetic kidney complication E11.29 and detention current use of anticoagulant Z79.01 [facility] [id number] [place] [address] Apr, Chronic pain syndrome G89.4 and Essential hypertension I10 [facility] [id number] [place] [address] Apr, Type 2 diabetes mellitus with other diabetic kidney complication E11.29 [facility] [id number] [place] [address] Apr, Type 2 diabetes mellitus with other diabetic kidney complication E11.29 [facility] [id number] [place] [address] Apr, Essential hypertension I10 [facility] [id number] [place] [address] Apr, Gastroesophageal reflux disease without esophagitis K21.9 [facility] [id number] [place] [address] Apr, Type 2 diabetes mellitus with other diabetic kidney complication E11.29 [facility] [id number] [place] [address] Apr, Type 2 diabetes mellitus with other diabetic kidney complication E11.29 and 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 [facility] [address] [place] [address] 27 Mar, 2017 Encounter for immunization Z23 and Preoperative examination Z01.818 [facility] [id number] [place] [address] Mar, [facility] [id number] [place] [address] Mar, Type 2 diabetes mellitus with other diabetic kidney complication E11.29 [facility] [id number] [place] [address] 08 Mar, 2017 Type 2 diabetes mellitus with other diabetic kidney complication E11.29 [facility] [id number] [place] [address] Mar, Gastroesophageal reflux disease without esophagitis K21.9 [facility] [id number] [place] [address] Mar, Essential hypertension I10 [facility] [id number] [place] [address] Feb, 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 [facility] [id number] [place] [address] Feb, Type 2 diabetes mellitus with other diabetic kidney complication E11.29 [facility] [id number] [place] [address] Feb, Type 2 diabetes mellitus with other diabetic kidney complication E11.29 [facility] [id number] [place] [address] Feb, Type 2 diabetes mellitus with other diabetic kidney complication E11.29 [facility] [id number] [place] [address] Feb, Gastroesophageal reflux disease without esophagitis K21.9 [facility] [id number] [place] [address] Feb, Type 2 diabetes mellitus with other diabetic kidney complication E11.29 [facility] [address] [address] Feb, detention current use of anticoagulant Z79.01 [facility] [address], [place] [address] Jan, Type 2 diabetes mellitus with other diabetic kidney complication E11.29 [facility] [id number] [address] Jan, Type 2 diabetes mellitus with other diabetic kidney complication E11.29 [facility] [address], [place] [address] Jan, Chronic pain syndrome G89.4 [facility] [address], [place] [address] Jan, [facility] [id number] [address] Jan, [facility] [address] [address] Jan, [facility] [address] [place] [address] Jan, [facility] [address] [address] Jan, Primary insomnia F51.01 ; Type 2 diabetes mellitus with other diabetic kidney complication E11.29 ; Chronic pain syndrome G89.4 and Essential hypertension I10 [facility] [address], [place] [address] Jan, Primary insomnia F51.01 [facility] [address], [place] [address] Jan, Type 2 diabetes mellitus with other diabetic kidney complication E11.29 [facility] [address], [place] [address] Jan, [facility] [id number] [place] [address] Jan, Chronic obstructive pulmonary disease, unspecified COPD type J44.9 [facility] [id number] [place] [address] Jan, Essential hypertension I10 ; Type 2 diabetes mellitus with other diabetic kidney complication E11.29 ; Chronic obstructive pulmonary disease, unspecified COPD type J44.9 ; Chronic kidney disease, stage 4 (severe) N18.4 ; Right carpal tunnel syndrome G56.01 ; 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 ; detention (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 and Diabetic polyneuropathy associated with type 2 diabetes mellitus E11.42 [facility] [id number] [place] [address] Jan, Gastroesophageal reflux disease without esophagitis K21.9 [place] [facility] [id number] [place] [address] Dec, [facility] [id number] [place] [address] Dec, [facility] [id number] [place] [address] Dec, detention current use of anticoagulant Z79.01 ; Chronic pain syndrome G89.4 and Essential hypertension I10 [facility] [id number] [place] [address] Dec, [facility] [id number] [place] [address] Dec, Type 2 diabetes mellitus with other diabetic kidney complication E11.29 [facility] [id number] [address] Dec, [facility] [id number] [place] [address] Dec, Gastroesophageal reflux disease without esophagitis K21.9 [facility] [id number] [place] [address] November, Type 2 diabetes mellitus with other diabetic kidney complication E11.29 [facility] [address], [place] [address] November, [facility] [id number] [place] [address] November, Type 2 diabetes mellitus with other diabetic kidney complication E11.29 [facility] [id number] [place] [address] November, [facility] [id number] [place] [address] November, Type 2 diabetes mellitus with other diabetic kidney complication E11.29 [facility] [id number] [place] [address] November, [facility] [id number] [place] [address] Oct, Essential hypertension I10 [facility] [id number] [place] [address] Oct, Psoriasis of scalp L40.9 [facility] [id number] [place] [address] Oct, Essential hypertension I10 and Chronic pain syndrome G89.4 [facility] [id number] [address] Oct, [facility] [address], [place] [address] Sep, Type 2 diabetes mellitus with other diabetic kidney complication E11.29 [facility] [address] [address] Sep, [facility] [id number] [place] [address] Sep, Type 2 diabetes mellitus with other diabetic kidney complication E11.29 [facility] [address] [address] 20 Mar, 2017 Type 2 diabetes mellitus with other diabetic kidney complication E11.29 [facility] [id number] [place] [address] 09 Sep, 2017 Type 2 diabetes mellitus [...] extremity R20.2 and Psoriasis of scalp L40.9 [facility] [id number] [place] [address] Sep, [address] [address] Aug, Essential hypertension I10 [facility] [address] [address] Aug, History of DVT (deep vein thrombosis) Z86.718 [facility] [id number] [place] [address] Aug, [facility] [id number] [place] [address] Jul, [facility] [id number] [place] [address] Jul, [facility] [id number] [place] [address] Jul, detention current use of anticoagulant Z79.01 ; Chronic pain syndrome G89.4 and Chronic kidney disease, stage 4 (severe) N18.4 [facility] [id number] [place] [address] Jul, [facility] [address] [place] [address] Jul, [facility] [address] [place] [address] Jul, [facility] [id number] [place] [address] Jul, [facility] [id number] [place] [address] Jul, [facility] [id number] [place] [address] Jul, Type 2 diabetes mellitus with other diabetic kidney complication E11.29 [place] [id number] [place] [address] Jul, History of DVT (deep vein thrombosis) Z86.718 [facility] [id number] [place] [address] Jun, [facility] [id number] [place] [address] Jun, History of DVT (deep vein thrombosis) Z86.718 [place] [id number] [place] [address] 15 Jun, 2016 Post traumatic stress disorder (PTSD) F43.10 [place] [id number] [place] [address] 07 Jun, 2016 Type 2 diabetes mellitus [...] pain M79.641 and Right wrist pain M25.531 [facility] [id number] [place] [address] May, [facility] [id number] [place] [address] May, [facility] [address] [address] May, [facility] [id number] [place] [address] May, [facility] [id number] [place] [address] May, Anemia in other chronic diseases classified elsewhere D63.8 [facility] [address] [address] May, [facility] [id number] [place] [address] Apr, [facility] [id number] [place] [address] 27 Mar, 2016 Dermatofibroma D23.9 [facility] [id number] [place] [address] 20 Mar, 2016 [facility] [id number] [place] [address] 14 Mar, 2016 Chronic pain syndrome G89.4 [facility] [id number] [place] [address] 09 Mar, 2016 [facility] [id number] [place] [address] 07 Mar, 2016 [facility] [id number] [place] [address] 06 Mar, 2016 [facility] [address] [place] [address] Feb, [facility] [address] [address] Feb, [facility] [address] [address] Feb, [facility] [id number] [place] [address] Feb, [facility] [id number] [place] [address] Feb, [facility] [id number] [place] [address] Feb, [facility] [id number] [place] [address] Feb, Type 2 diabetes mellitus with other [...] (severe) N18.4 [facility] [address] [address] Feb, Skin tags, multiple acquired L91.8 [facility] [id number] [place] [address] Jan, [facility] [address] [id number] Jan, Dental examination Z01.20 [facility] [id number] [place] [address] Jan, [facility] [address] [place] [address] [place] [address] Jan, Type 2 diabetes mellitus with other [...] Renal failure, chronic, stage 4 (severe) N18.[address] [place] [address] Dec, Diabetes type 2, uncontrolled E11.65 [place] [id number] [place] [phone] Dec, [place] [id number] [place] [id number] Dec, Type 2 diabetes mellitus with other [...] [facility] [address] [id number] [id number] Dec, Dental caries K02.9 [facility] [id number] [place] [id number] Dec, [facility] [address] [id number] [place] [id number] Dec, Dental examination Z01.20 [facility] [address] [id number] [place] [id number] November, Dental examination Z01.20 and Dental caries K02.9 [facility] [address] [id number] [id number] Oct, [facility] [address] [id number] [place] [id number] Oct, [facility] [address] [id number] [id number] Sep, [facility] [id number] [place] [id number] Sep, [facility] [address] [id number] [place] [id number] Sep, [facility] [address] [id number] [place] [id number] Sep, Other chronic pain 338.29 [facility] [address] [id number], [place] [id number] Aug, Diabetes type 2, uncontrolled E11.65 and Morbid obesity due to excess calories E66.01 [facility] [address] [id number][place] [id number] Aug, Hair loss L65.9 [facility] [address] [id number], [place] [id number] Aug, [facility] [address] [id number], [place] [id number] Jul, [facility] [address] [id number], [place] [id number] Jul, [facility] [address] [id number] [place] [address] [id number] Jun, [facility] [address] [id number] [place] [address] [id number] Jun, Hair loss L65.9 and Disorder of the skin and subcutaneous tissue, unspecified L98.9 [facility] [place] [address] [id number] May, Type 2 diabetes mellitus with other diabetic kidney complication E11.29 ; Type 2 diabetes mellitus with hyperglycemia E11.65 ; Morbid obesity due to excess calories E66.01 and Essential hypertension I10 [place] [id number] [place] [address] [id number] May, Diabetes type 2, uncontrolled E11.65 ; Encounter for immunization Z23 and Morbid obesity due to excess calories E66.01 [place] [place] [id number] [place] [address] [id number] May, [facility] [address] [address] Apr, [address] [id number] Apr, Hyperglycemia R73.[address] [id number] Apr, [address] [id number] Apr, Depression F32.9 ; Encounter for immunization Z23 ; Hyperglycemia R73.9 and Anemia in other chronic diseases classified elsewhere D63.8 [facility] [address] [place] [address] [id number] Mar, [address] [place] [address] [id number] Feb, Positive occult stool blood test 792.1 [place] [id number] [place] [address] [id number] Feb, Depression 311 ; Other chronic pain 338.29 and Diabetes with renal manifestations, type II or unspecified type, not stated as uncontrolled 250.40 [facility] [id number] [place] [address] Feb, Occult blood in stools 792.[address] [place] [address] [id number] Feb, Anemia 285.9 ; Occult blood positive stool 792.1 ; Unspecified essential hypertension 401.9 and Other chronic pain 338.29 [facility] [id number], [place] [id number] Feb, [facility] [id number] [place] [address] [id number] Feb, Anemia 285.9 [facility] [id number], [place] [id number] Feb, [facility] [id number] [place] [address] [id number] Feb, [facility] [id number] [place] [address] [id number] Feb, Diabetes with renal manifestations, type II or unspecified type, not stated as uncontrolled 250.40 ; Other chronic pain 338.29 ; Unspecified essential hypertension 401.9 ; Anemia 285.9 and Depression 311 [facility] [id number] [place] [address] [id number] Jan, [facility] [id number] [place] [address] [id number] Jan, Anemia 285.9 and Follow up V67.9 [facility] [id number], [place] [id number] Jan, [facility] [id number] [place] [address] [id number] Jan, [facility] [id number] [place] [address] [id number] Jan, [facility] [id number] [place] [address] [id number] Dec, [facility] [id number] [address] Oct, [facility] [id number] [place] [address] Oct, [facility] [id number] [place] [address] Sep, [facility] [address] [id number], [place] [id number] Sep, [facility] [id number] [place] [address] Sep, [facility] [address] [id number], [place] [id number] Aug, [facility] [place] [facility] [address] [facility] [id number] [address] Aug, [facility] [place] [facility] [address] [facility] [id number] [address] Aug, [facility] [address] [id number], [place] [id number] Aug, [facility] [place] [facility] [address] [facility] [id number] [place] [address] Aug, [facility] [place] [facility] [address] [id number] [address] Aug, [facility] [address] [id number], [place] [id number] Aug, [facility] [place] [facility] [address]00565100[place], [place] [address] Aug, [facility] [address] [facility] [id number], [place] [id number] Jul, [facility] [place] [facility] [address]00565100[place], [place] [address] Jul, [facility] [place] [facility] [address] [id number], [place] [address] Jul, [facility] [address] [id number], [place] [id number] Jul, [facility] [place] [facility] [address] [facility] [id number][place] [address] Jul, [facility] [address] [facility] [id number], [place] [id number] Jul, [facility] [place] [facility] [address] [facility] [id number] [address] Jul, [facility] [address] [id number], [place] [id number] Jun, [facility] [address] [facility] [id number], [place] [id number] Jun, [facility] [place] [facility] [address] [facility] [id number] [place] [address] Jun, [facility] [place] [facility] [address] [facility] [id number] [place] [address] Jun, [facility] [address] [facility] [id number], [place] [id number] Jun, [facility] [place] [facility] [address] [facility] [id number] [address] Jun, [facility] [address] [facility] [id number], [place] [id number] May, [facility] [place] [facility] [address] [id number], [place] [address] May, [facility] [place] [facility] [address]00565100[place], [place] [address] May, [facility] [address] [facility] [id number], [place] [id number] Apr, [facility] [place] [facility] [address] [facility] [id number][place] [address] Apr, [facility] [address] [facility] [id number], [place] [id number] Apr, [facility] [address] [facility] [id number], [place] 160085429 Apr, [facility] [place] [facility] [address] [facility] [id number] [address] Apr, [facility] [place] [facility] [address] [facility] [id number][place] [address] Apr, [facility] [address] [facility] [id number], [place] [id number] Mar, [facility] [place] [facility] [address] [facility] [id number], [place] [address] Mar, [facility] [address] [facility] [id number], [place] 814017437 Mar, [facility] [place] [facility] [address] [id number] [place] [address] Mar, [facility] [address] [id number] [place] [id number] Mar, [facility] [place] [facility] [address] [facility] [id number] [place] [address] Mar, [facility] [address] [id number] [place] [id number] Mar, [facility] [place] [facility] [address] [id number] [place] [address] Mar, [facility] [address] [id number] [place] [id number] Mar, [facility] [place] [facility] [address] [facility] [id number] [place] [address] Mar, [facility] [address] [facility] [id number] [place] [id number] Feb, [facility] [place] [facility] [address] [facility] [id number] [address] Feb, [facility] [address] [facility] [id number], [place] [id number] Jan, [facility] [place] [facility] [address] [facility] [id number], [place] [address] Jan, [facility] [address] [facility] [id number] [place] [id number] Jan, [facility] [place] [facility] [address] [facility] [id number] [address] Jan, [facility] [address] [facility] [id number], [place] [id number] Jan, [facility] [place] [facility] [address] [facility] [id number] [place] [address] Jan, [facility] [place] [facility] [address] [facility] [id number][place] [address] Dec, [facility] [place] [facility] [address] [facility] [id number] [address] Dec, [facility] [address] [id number] [place] [id number] November, [facility] [place] [facility] [address] [id number] [place] [address] November, [facility] [address] [id number] [place] [id number] November, [facility] [place] [facility] [address] [id number] [place] [address] November, [facility] [address] [id number] [place] [id number] Oct, [facility] [place] [facility] [address] [id number] [place] [address] Oct, [facility] [place] [facility] [address] [facility] [id number] [place] [address] Oct, [facility] [place] [facility] [address] [facility] [id number] [place] [address] Oct, [facility] [place] [facility] [address] [id number] [place] [address] Oct, [facility] [place] [facility] [address] [facility] [id number] [place] [address] Oct, [facility] [address] [id number] [place] [id number] Sep, [facility] [address] [id number] [place] [id number] Sep, [facility] [place] [facility] [address] [id number] [place] [address] Sep, [facility] [place] [facility] [address] [id number] [place] [address] Sep, [facility] [address] [id number] [place] [id number] Sep, [facility] [place] [facility] [address] [facility] [id number] [place] [address] Sep, [facility] [place] [facility] [address] [facility] [id number] [address] Aug, [facility] [place] [facility] [address] [facility] [id number], [place] [address] Aug, [facility] [address] [facility] [id number], [place] [id number] Aug, [facility] [address] [facility] [id number] [place] [id number] Aug, [facility] [place] [facility] [address] [facility] [id number] [address] Aug, [facility] [address] [facility] [id number] [place] 838821148 Aug, [facility] [place] [facility] [address]00565100[place] [address] Aug, [facility] [address] [id number], [place] 416237447 Aug, [facility] [place] [facility] [address]00565100[place], [place] [address] Aug, [facility] [address] [facility] [id number], [place] [id number] Aug, [facility] [place] [facility] [address]00565100[place], [place] [address] Aug, [facility] [address] [id number], [place] [id number] Aug, [facility] [place] [facility] [address]00565100[place], [place] [address] Aug, [facility] [place] [facility] [address] [facility] [id number] [address] Jul, [facility] [address] [facility] [id number], [place] 161099858 Jun, [facility] [place] [facility] [address] [id number] [address] Jun, [facility] [place] [facility] [address]00565100[place], [place] [address] Jun, [facility] [place] [facility] [address] [id number] [place] [address] Jun, [facility] [address] [facility] [id number], [place] 812011548 Jun, [facility] [place] [facility] [address] [id number] [place] [address] Jun, [facility] [place] [facility] [address] [facility] [id number] [address] Jun, [facility] [address] [facility] [id number] [place] [id number] Jun, [facility] [place] [facility] [address] [facility] [id number], [place] [address] Jun, [facility] [place] [facility] [address] [id number] [address] May, [facility] [address] [id number], [place] 456693041 May, [facility] [place] [facility] [address] [id number] [address] May, [facility] [place] [facility] [address] [id number], [place] [address] May, [facility] [place] [facility] [address] [id number], [place] [address] May, [facility] [place] [facility] [address] [facility] [id number][place] [address] May, [facility] [address] [facility] [id number], [place] 278202377 May, [facility] [place] [facility] [address] [facility] [id number] [address] May, [facility] [address] [facility] [id number], [place] 344772005 May, [facility] [place] [facility] [address] [facility] [id number] [address] May, [facility] [address] [facility] [id number], [place] 055691215 Apr, [facility] [place] [facility] [address] [facility] [id number], [place] [address] Apr, [facility] [place] [facility] [address] [facility] [id number] [address] Apr, [facility] [address]005[address] [id number] Apr, [facility] [place] [facility] [address] [facility] [id number], [place] [address] Apr, [facility] [place] [facility] [address]00565100[place], [place] [address] Apr, [facility] [id number], [place] [id number] Apr, [facility] [place] [facility] [address]00565100[place], [place] [address] Apr, [facility] [place] [facility] [address] [facility] [id number], [place] [address] Apr, [facility] [place] [facility] [address]00565100[place], [place] [address] Apr, [facility] [id number], [place] [id number] Apr, [facility] [place] [facility] [address] [facility] [id number], [place] [address] Apr, [facility] [id number], [place] 995950812 Apr, [facility] [place] [facility] [address] [facility] [id number], [place] [address] Apr, [facility] [address] [facility] [id number], [place] 560721370 Apr, [facility] [place] [facility] [address]00565100[place], [place] [address] Apr, [facility] [place] [facility] [address] [facility] [id number], [place] [address] Apr, [facility] [address] [facility] [id number] [address] Apr, [facility] [address] [id number], [place] 427715296 Apr, [facility] [address] [facility] [id number] [address] Mar, [facility] [address] [facility] [id number], [place] [address] Mar, [facility] [address] [id number] [place] 905574506 Mar, [facility] [address] [id number] [place] [id number] Mar, [facility] [address] [id number] [place] 056316102 Mar, [facility] [address] [id number] [place] 660859707 Feb, [facility] [address] [id number] [place] [id number] Feb, [facility] [address] [id number] [place] [id number] Feb, [facility] [address] [facility] [id number], [place] [address] Feb, [facility] [address] [id number], [place] [id number] Feb, [facility] [address] [id number] [place] [id number] Feb, [facility] [address] [id number] [place] 264684061 Feb, [facility] [address] [id number] [place] [id number] Feb, [facility] [address] [id number] [place] 700616039 Feb, [facility] [address] [id number] [place] 113945210 Jan, [facility] [place] [address] [id number] [place] 228764779 Jan, [facility] [place] [address] [id number] [place] 134329250 Jan, [facility] [place] [address] [id number] [place] [id number] Jan, [facility] [place] [address] [id number] [place] 191291382 Jan, [facility] [address]00565100[place], [place] [address] Jan, [facility] [place] [address] [id number] [place] 267224839 Jan, [facility] [place] [address] [id number] [place] 751658604 Jan, [facility] [address] [id number] [place] 120407347 Dec, [facility] [place] [address] [id number] [place] [id number] November, [facility] [place] [address] [id number] [place] 701120147 November, [facility] [address] [id number] [place] 708030280 November, [facility] [address] [id number] [place] 201633763 November, [facility] [address] [id number] [place] 470778812 November, [facility] [address] [id number] [place] 316451695 November, [facility] [address] [id number] [place] 201738602 Jul, [facility] [address] [id number] [place] 625380482 Jul, [facility] [address] [id number] [place] 036887980 Jul, [facility] [address] [id number] [place] [id number] Jun, [facility] [address]00565100[place], [place] [address] Jun, [facility] [address] [id number], [place] 917655599 May, [facility] [place] [facility] [address] [facility] [id number], [place] [address] May, [facility] [address] [id number], [place] 054491474 May, [facility] [place] [facility] [address] [facility] [id number], [place] [address] May, [facility] [address] [id number], [place] 417307344 May, [facility] [place] [facility] [address] [facility] [id number] [address] May, [facility] [address] [facility] [id number], [place] 121996172 Apr, [facility] [place] [facility] [address]00565100[place] [address] Apr, [facility] [place] [facility] [address] [facility] [id number] [address] 18 Apr, 2012 [facility] [address] [id number], [place] [id number] Apr, [facility] [address] [id number], [place] 712715281 Apr, [facility] [place] [facility] [address] [facility] [id number], [place] [address] Apr, [facility] [place] [facility] [address] [facility] [id number], [place] [address] Apr, [facility] [address] [id number], [place] 677721871 Apr, [facility] [place] [facility] [address] [facility] [id number] [address] 10 Apr, 2012 [facility] [address] [id number][place] [id number] 09 Apr, 2012 [facility] [place] [address] [id number] [place] [id number] Apr, [facility] [place] [address] [id number] [place] [id number] Mar, [facility] [place] [address] [id number] [place] [id number] Feb, [facility] [place] [address] [id number] [place] [id number] Jan, [facility] [place] [address] [id number] [place] [id number] Dec, [facility] [place] [address] [id number] [place] [id number] Dec, [facility] [place] [address] [id number] [place] [id number] Dec, [facility] [place] [address] [id number] [place] [id number] Dec, [facility] [place] [address] [id number] [place] [id number] Dec, [facility] [place] [address] [id number] [place] [id number] November, [facility] [place] [address] [id number] [place] [id number] November, [facility] [place] [address] [id number] [place] [id number] November, [facility] [address] [facility] [id number], [place] [address] November, [facility] [place] [address] [id number] [place] [id number] November, [facility] [place] [address] [id number] [place] [id number] November, [facility] [place] [address] [id number] [place] [id number] Oct, [facility] [place] [address] [id number] [place] [id number] Oct, [facility] [place] [address] [id number] [place] [id number] Oct, [facility] [place] [address] [id number] [place] [id number] Oct, [facility] [place] [address] [id number] [place] [id number] Oct, [facility] [place] [address] [id number] [place] [id number] Oct, [facility] [place] [address] [id number] [place] [id number] Sep, [facility] [place] [address] [id number] [place] [id number] Aug, [facility] [place] [address] [id number] [place] [id number] Aug, [facility] [place] [address] [id number] [place] [id number] Jul, [facility] [place] [facility] [address] [facility] [id number], [place] [address] Jun, [facility] [place] [facility] [address] [id number] [address] Jun, [facility] [place] [facility] [id number], [place] [address] Jun, [facility] [place] [facility] [id number], [place] [address] Jun, [facility] [place] [facility] [id number], [place] [address] May, [facility] [place] [facility] [id number], [place] [address] May, [facility] [place] [facility] [address] [id number], [place] [address] Apr, [facility] [place] [facility] [id number], [place] [address] Apr, [facility] [place] [facility] [id number], [place] [address] Apr, [facility] [place] [facility] [id number], [place] [address] Feb, [facility] [place] [facility] [address] [id number] [place] [address] 15 Aug, 2010 [facility] [address] [id number] [place] [address] 18 Jul, 2010 [facility] [place] [facility] [address] [id number] [place] [address] 30 Jun, 2010 [facility] [address] [id number] [place] [address] 29 May, 2010 [facility] [place] [facility] [address] [id number] [place] [address] May, [facility] [address] [id number] [place] [address] May, [facility] [address] [facility] [id number] [place] [address] May, [facility] [address] [facility] [id number] [place] [address] May, [facility] [address] [id number] [place] [address] 16 Aug, 2009 [facility] [address] [facility] [id number] [place] [address] Jun, [facility] [address] [facility] [id number] [place] [address] Jun, [facility] [place] [facility] [address] [facility] [id number] [place] [address] Jun, [facility] [place] [facility] [address] [id number] [place] [address] 24 May, 2009 [facility] [place] [facility] [address] [id number] [place] [address] 28 Apr, 2009 [facility] [place] [facility] [address] [facility] [id number] [place] [address] Apr, [facility] [place] [facility] [address] [facility] [id number] [place] [address] Apr, [facility] [address] [facility] [id number], [place] [address] Jan, [facility] [address] [facility] [id number], [place] [address] Oct, [facility] [address] [facility] [id number], [place] [address] May, [facility] [address] [facility] [id number], [place] [id number] May, IMMUNIZATIONS No Known Immunizations SOCIAL HISTORY Never Assessed REASON FOR VISIT EMR-[facility] PLAN OF CARE VITAL SIGNS MEDICATIONS Unknown [...] Dialysis [facility] Reveles 2012 -Dr. Simon now [facility] Medical History Colonoscopy (polyps 2 ) [...]
--- OUTSIDE RECORDS SUMMARY | 2018-12-28 17:43 | XMS REPORT ---
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 Active 258964064 Problem Chronic pain syndrome G89.4 Active 245157816 Problem Sleep apnea in adult G47.33 Active 01348419 Problem Diabetic polyneuropathy associated with type 2 diabetes mellitus E11.42 Active 39720306 Problem Primary insomnia F51.01 Active 3819102 Problem Chronic obstructive pulmonary disease, unspecified COPD type J44.9 Active 21318059 Problem Right carpal tunnel syndrome G56.01 Active 106479890661056 Problem Gastroesophageal reflux disease without esophagitis K21.9 Active 228874604 Problem 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 Active 544246339171431 Problem Chronic kidney disease, stage 4 (severe) N18.4 Active 824993674 Problem Type 2 diabetes mellitus with hyperglycemia E11.65 Active 302240905376152 Problem Psoriasis of scalp L40.9 Active 751421080 Problem Carpal tunnel syndrome, bilateral G56.03 Active 43740507983782912 Problem Depression, unspecified depression type F32.9 Active 58457993 Problem Type 2 diabetes mellitus with other diabetic kidney complication E11.29 Active 150981908 Problem Fibromyalgia M79.7 Active 499915089 Problem Oxygen desaturation during sleep G47.34 Active 657100199 Problem Anemia in other chronic diseases classified elsewhere D63.8 Active 842143312 Problem History of DVT (deep vein thrombosis) Z86.718 Active 740456223 Problem Paresthesia of right upper extremity R20.2 Active 19225361 Problem assisted 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 Active 054862748 Problem Supplemental oxygen dependent Z99.81 Active 598757978312 Problem Bilateral lower extremity edema R60.0 Active 338078734 ALLERGIES No Information ENCOUNTERS Encounter Location Date Diagnosis [facility] [address], [place] [address] Apr, [facility] [address] [address] Feb, [facility] [address] [address] Feb, [facility] [address] [address] Jan, [facility] [address], [place] [address] Jan, [facility] [address] [address] Jan, [address] [id number] Jan, [facility] [address] [address] Jan, [facility] [address] [address] Jan, [facility] [address] [address] Jan, Essential hypertension I10 [facility] [address] [address] Jan, Chronic obstructive pulmonary disease, unspecified COPD type J44.9 [facility] [id number] [address] Jan, [facility] [id number] [address] Jan, [facility] [id number] [address] Jan, Type 2 diabetes mellitus with other diabetic kidney complication E11.29 ; Anemia in other chronic diseases classified elsewhere D63.8 ; Chronic obstructive pulmonary disease, unspecified COPD type J44.9 and BMI 60.0-69.9, adult Z68.44 [facility] [id number] [address] Jan, [facility] [id number] [place] [address] Jan, [facility] [id number] [id number] Jan, [facility] [id number] [place] [id number] Dec, [facility] [id number] [place] [id number] Dec, [facility] [address] [place] [id number] Dec, Essential hypertension I10 ; Type 2 diabetes mellitus with other diabetic kidney complication E11.29 ; Depression, unspecified depression type F32.9 ; Supplemental oxygen dependent Z99.81 ; Chronic pain syndrome G89.4 ; Fibromyalgia M79.7 ; Carpal tunnel syndrome, bilateral G56.03 and Chronic kidney disease, stage 4 (severe) N18.4 [facility] [id number] [place] [address] Dec, Essential hypertension I10 [facility] [id number] [place] [address] November, Type 2 diabetes mellitus with other diabetic kidney complication E11.29 [facility] [id number] [place] [address] November, Chronic pain syndrome G89.4 [facility] [address] [address] November, [facility] [id number] [place] [address] November, [facility] [id number] [place] [address] November, [facility] [address] [place] [address] Oct, Type 2 diabetes mellitus with other diabetic kidney complication E11.29 [place] [address], [place] [address] Oct, Primary insomnia F51.01 [facility] [id number] [id number] Oct, Bilateral lower extremity edema R60.0 [place] [address] [place] [address] Oct, [place] [address] [place] [address] Sep, Type 2 diabetes mellitus with other diabetic kidney complication E11.29 and Chronic obstructive pulmonary disease, unspecified COPD type J44.9 [place] [address] [place] [address] 15 Aug, 2017 Type 2 diabetes mellitus with other diabetic kidney complication E11.29 [address] [place] [address] 12 Aug, 2017 Gastroesophageal reflux disease without esophagitis K21.9 ; assisted current use of anticoagulant Z79.01 ; Chronic pain syndrome G89.4 ; Essential hypertension I10 and Type 2 diabetes mellitus with other diabetic kidney complication E11.29 [place] [address] [address] 08 Aug, 2017 Chronic pain syndrome G89.4 [place] [address] [address] Aug, Type 2 diabetes mellitus with other diabetic kidney complication E11.29 [place] [address], [place] [address] Jul, Diabetic polyneuropathy associated with type 2 diabetes mellitus E11.42 [place] [address], [place] [address] Jul, Primary insomnia F51.01 [facility] [address], [place] [address] Jul, [place] [address], [place] [address] Jul, Type 2 diabetes mellitus with other diabetic kidney complication E11.29 and Chronic obstructive pulmonary disease, unspecified COPD type J44.9 [place] [address], [place] [address] 08 Jul, 2017 Type 2 diabetes mellitus with other diabetic kidney complication E11.29 [place] [id number] [place] [address] Jun, Type 2 diabetes mellitus with other diabetic kidney complication E11.29 [place] [id number] [place] [address] 27 Jun, 2017 [place] [id number] [place] [address] Jun, Chronic obstructive pulmonary disease, unspecified COPD type J44.9 [place] [id number] [place] [address] May, Type 2 diabetes mellitus with other diabetic kidney complication E11.29 [place] [address], [place] [address] May, 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 and Essential hypertension I10 [place] [id number] [place] [address] May, Anemia in other chronic diseases classified elsewhere D63.8 ; Chronic obstructive pulmonary disease, unspecified COPD type J44.9 ; Oxygen desaturation during sleep G47.34 ; Sleep apnea in adult G47.33 and Supplemental oxygen dependent Z99.[address] [place] [address] May, Type 2 diabetes mellitus with other diabetic kidney complication E11.29 ; Essential hypertension I10 ; Chronic pain syndrome G89.4 ; BMI 40.0- 44.9, adult Z68.41 ; Gastroesophageal reflux disease without esophagitis K21.9 ; 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 ; 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 ; Diabetic polyneuropathy associated with type 2 diabetes mellitus E11.42 ; Edema of both legs R60.0 and Supplemental oxygen dependent Z99.81 [place] [address] [address] May, [place] [id number] [place] [address] May, Essential hypertension I10 and Gastroesophageal reflux disease without esophagitis K21.9 [place] [address] [address] May, [place] [address] [address] May, Type 2 diabetes mellitus with other diabetic kidney complication E11.29 and assisted current use of anticoagulant Z79.01 [place] [id number] [place] [address] Apr, Chronic pain syndrome G89.4 and Essential hypertension I10 [place] [id number] [place] [address] Apr, Type 2 diabetes mellitus with other diabetic kidney complication E11.29 [place] [id number] [place] [address] Apr, Type 2 diabetes mellitus with other diabetic kidney complication E11.29 [place] [id number] [place] [address] Apr, Essential hypertension I10 [place] [id number] [place] [address] Apr, Gastroesophageal reflux disease without esophagitis K21.9 [place] [id number] [place] [address] Apr, Type 2 diabetes mellitus with other diabetic kidney complication E11.29 [place] [id number] [place] [address] Apr, Type 2 diabetes mellitus with other diabetic kidney complication E11.29 and 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 [facility] [address] [place] [address] 27 Mar, 2017 Encounter for immunization Z23 and Preoperative examination Z01.818 [facility] [id number] [place] [address] Mar, [facility] [id number] [place] [address] Mar, Type 2 diabetes mellitus with other diabetic kidney complication E11.29 [place] [id number] [place] [address] 08 Mar, 2017 Type 2 diabetes mellitus with other diabetic kidney complication E11.29 [place] [id number] [place] [address] Mar, Gastroesophageal reflux disease without esophagitis K21.9 [place] [id number] [place] [address] Mar, Essential hypertension I10 [place] [id number] [place] [address] Feb, 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 [facility] [id number] [place] [address] Feb, Type 2 diabetes mellitus with other diabetic kidney complication E11.29 [facility] [id number] [place] [address] Feb, Type 2 diabetes mellitus with other diabetic kidney complication E11.29 [place] [id number] [place] [address] Feb, Type 2 diabetes mellitus with other diabetic kidney complication E11.29 [place] [id number] [place] [address] Feb, Gastroesophageal reflux disease without esophagitis K21.9 [facility] [id number] [place] [address] Feb, Type 2 diabetes mellitus with other diabetic kidney complication E11.29 [facility] [address], [place] [address] Feb, assisted current use of anticoagulant Z79.01 [facility] [address], [place] [address] Jan, Type 2 diabetes mellitus with other diabetic kidney complication E11.29 [facility] [address] [address] Jan, Type 2 diabetes mellitus with other diabetic kidney complication E11.29 [facility] [address], [place] [address] Jan, Chronic pain syndrome G89.4 [facility] [address], [place] [address] Jan, [facility] [address] [address] Jan, [facility] [address], [place] [address] Jan, [facility] [address] [place] [address] Jan, [facility] [address], [place] [address] Jan, Primary insomnia F51.01 ; Type 2 diabetes mellitus with other diabetic kidney complication E11.29 ; Chronic pain syndrome G89.4 and Essential hypertension I10 [facility] [address], [place] [address] Jan, Primary insomnia F51.01 [facility] [address], [place] [address] Jan, Type 2 diabetes mellitus with other diabetic kidney complication E11.29 [facility] [address], [place] [address] Jan, [facility] [id number] [place] [address] Jan, Chronic obstructive pulmonary disease, unspecified COPD type J44.9 [facility] [id number] [place] [address] Jan, Essential hypertension I10 ; Type 2 diabetes mellitus with other diabetic kidney complication E11.29 ; Chronic obstructive pulmonary disease, unspecified COPD type J44.9 ; Chronic kidney disease, stage 4 (severe) N18.4 ; Right carpal tunnel syndrome G56.01 ; 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 ; assisted (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 and Diabetic polyneuropathy associated with type 2 diabetes mellitus E11.42 [place] [id number] [place] [address] Jan, Gastroesophageal reflux disease without esophagitis K21.9 [place] [id number] [place] [address] Dec, [facility] [id number] [place] [address] Dec, [facility] [id number] [place] [address] Dec, assisted current use of anticoagulant Z79.01 ; Chronic pain syndrome G89.4 and Essential hypertension I10 [facility] [id number] [place] [address] Dec, [facility] [id number] [place] [address] Dec, Type 2 diabetes mellitus with other diabetic kidney complication E11.29 [facility] [address] [address] Dec, [facility] [id number] [place] [address] Dec, Gastroesophageal reflux disease without esophagitis K21.9 [facility] [id number] [place] [address] November, Type 2 diabetes mellitus with other diabetic kidney complication E11.29 [facility] [address], [place] [address] November, [facility] [id number] [place] [address] November, Type 2 diabetes mellitus with other diabetic kidney complication E11.29 [facility] [id number] [place] [address] November, [facility] [id number] [place] [address] November, Type 2 diabetes mellitus with other diabetic kidney complication E11.29 [facility] [id number] [place] [address] November, [facility] [id number] [place] [address] Oct, Essential hypertension I10 [facility] [id number] [place] [address] Oct, Psoriasis of scalp L40.9 [facility] [id number] [place] [address] Oct, Essential hypertension I10 and Chronic pain syndrome G89.4 [facility] [address] [address] Oct, [facility] [address], [place] [address] Sep, Type 2 diabetes mellitus with other diabetic kidney complication E11.29 [facility] [address], [place] [address] Sep, [facility] [id number] [place] [address] Sep, Type 2 diabetes mellitus with other diabetic kidney complication E11.29 [facility] [address], [place] [address] 20 Mar, 2017 Type 2 diabetes mellitus with other diabetic kidney complication E11.29 [place] [id number] [place] [address] 09 Sep, 2017 Type 2 diabetes mellitus [...] extremity R20.2 and Psoriasis of scalp L40.9 [place] [address] [place] [address] Sep, [address] [address] Aug, Essential hypertension I10 [place] [address] [address] Aug, History of DVT (deep vein thrombosis) Z86.718 [place] [id number] [place] [address] Aug, [place] [address] [place] [address] Jul, [place] [id number] [place] [address] Jul, [place] [address] [place] [address] Jul, assisted current use of anticoagulant Z79.01 ; Chronic pain syndrome G89.4 and Chronic kidney disease, stage 4 (severe) N18.4 [place] [id number] [place] [address] Jul, [place] [address] [place] [address] Jul, [place] [address] [place] [address] Jul, [place] [id number] [place] [address] Jul, [place] [id number] [place] [address] Jul, [place] [id number] [place] [address] Jul, Type 2 diabetes mellitus with other diabetic kidney complication E11.29 [place] [id number] [place] [address] Jul, History of DVT (deep vein thrombosis) Z86.718 [place] [id number] [place] [address] Jun, [place] [id number] [place] [address] Jun, History of DVT (deep vein thrombosis) Z86.718 [place] [id number] [place] [address] 15 Jun, 2016 Post traumatic stress disorder (PTSD) F43.10 [place] [id number] [place] [address] 07 Jun, 2016 Type 2 diabetes mellitus [...] pain M25.531 [facility] [id number] [place] [address] May, [facility] [id number] [place] [address] May, [facility] [address] [address] May, [facility] [id number] [place] [address] May, [facility] [id number] [place] [address] May, Anemia in other chronic diseases classified elsewhere D63.8 [facility] [address] [address] May, [facility] [id number] [place] [address] Apr, [facility] [id number] [place] [address] 27 Mar, 2016 Dermatofibroma D23.9 [facility] [id number] [place] [address] 20 Mar, 2016 [facility] [id number] [place] [address] 14 Mar, 2016 Chronic pain syndrome G89.4 [facility] [id number] [place] [address] 09 Mar, 2016 [facility] [id number] [place] [address] 07 Mar, 2016 [facility] [id number] [place] [address] 06 Mar, 2016 [facility] [address] [place] [address] Feb, [facility] [address] [address] Feb, [facility] [address] [address] Feb, [facility] [address] [place] [address] Feb, [facility] [address] [place] [address] Feb, [facility] [address] [place] [address] Feb, [facility] [address] [place] [address] Feb, Type 2 diabetes mellitus with other diabetic kidney complication E11.29 ; Diabetic polyneuropathy associated with type 2 diabetes mellitus E11.42 ; Iron deficiency anemia due to chronic blood loss D50.0 ; Chronic obstructive pulmonary disease, unspecified COPD type J44.9 ; 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 ; History [...] (severe) N18.4 [facility] [address] [address] Feb, Skin tags, multiple acquired L91.8 [facility] [id number] [place] [address] Jan, [facility] [address] [id number] Jan, Dental examination Z01.20 [facility] [id number] [place] [address] Jan, [facility] [address] [place] [address] [place] [address] Jan, Type 2 diabetes mellitus with other diabetic kidney complication E11.29 ; Diabetic polyneuropathy associated with type 2 diabetes mellitus E11.42 ; Iron deficiency anemia due to chronic blood loss D50.0 ; Chronic obstructive pulmonary disease, unspecified COPD type J44.9 ; 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 ; History of DVT (deep vein thrombosis) Z86.718 ; Chronic pain syndrome G89.4 ; Oxygen desaturation during sleep G47.34 ; Sleep apnea in adult G47.33 ; Gastroesophageal reflux disease without esophagitis K21.9 ; Essential hypertension I10 ; Primary insomnia F51.01 ; Depression, unspecified depression type F32.9 ; Skin lesion L98.9 and Renal failure, chronic, stage 4 (severe) N18.[id number] [place] [phone] Dec, Diabetes type 2, uncontrolled E11.65 [address] [place] [id number] [place] [phone] Dec, [place] [id number] [place] [phone] Dec, Type 2 diabetes mellitus with other diabetic kidney complication E11.29 ; Diabetic polyneuropathy associated with type 2 diabetes mellitus E11.42 ; Iron deficiency anemia due to chronic blood loss D50.0 ; Chronic obstructive pulmonary disease, unspecified COPD type J44.9 ; 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 ; History of DVT (deep vein thrombosis) Z86.718 ; Chronic pain syndrome G89.4 ; Oxygen desaturation during sleep G47.34 ; Sleep apnea in adult G47.33 ; Gastroesophageal reflux disease without esophagitis K21.9 ; Essential hypertension I10 ; Primary insomnia F51.01 and Depression, unspecified depression type F32.9 [facility] [address] [id number] [id number] Dec, Dental caries K02.9 [facility] [id number] [place] [address] [id number] Dec, [facility] [address] [id number] [place] [id number] Dec, Dental examination Z01.20 [facility] [address] [id number] [place] [id number] November, Dental examination Z01.20 and Dental caries K02.9 [facility] [address] [id number], [place] [id number] Oct, [facility] [address] [id number] [place] [address] [id number] Oct, [facility] [address] [id number], [place] [id number] Sep, [facility] [address] [id number] [place] [address] [id number] Sep, [facility] [address] [id number] [place] [address] [id number] Sep, [facility] [address] [id number] [place] [address] [id number] Sep, Other chronic pain 338.29 [facility] [address] [id number], [place] 623473810 Aug, Diabetes type 2, uncontrolled E11.65 and Morbid obesity due to excess calories E66.01 [facility] [address] [id number], [place] [id number] Aug, Hair loss L65.9 [facility] [address] [id number], [place] [id number] Aug, [facility] [address] [id number], [place] [id number] Jul, [facility] [address] [id number], [place] [id number] Jul, [facility] [address] [id number] [place] [address] [id number] Jun, [facility] [address] [id number] [place] [address] [id number] Jun, Hair loss L65.9 and Disorder of the skin and subcutaneous tissue, unspecified L98.9 [id number] [place] [address] [id number] May, Type 2 diabetes mellitus with other diabetic kidney complication E11.29 ; Type 2 diabetes mellitus with hyperglycemia E11.65 ; Morbid obesity due to excess calories E66.01 and Essential hypertension I10 [place] [id number] [place] [address] [id number] May, Diabetes type 2, uncontrolled E11.65 ; Encounter for immunization Z23 and Morbid obesity due to excess calories E66.01 [place] [id number] [place] [address] [id number] May, [facility] [address] [address] Apr, [address] [id number] Apr, Hyperglycemia R73.[address] [id number] Apr, [address] [id number] Apr, Depression F32.9 ; Encounter for immunization Z23 ; Hyperglycemia R73.9 and Anemia in other chronic diseases classified elsewhere D63.8 [facility] [address] [place] [address] [id number] Mar, [id number] [place] [address] [id number] Feb, Positive occult stool blood test 792.1 [place] [id number] [place] [address] [id number] Feb, Depression 311 ; Other chronic pain 338.29 and Diabetes with renal manifestations, type II or unspecified type, not stated as uncontrolled 250.40 [facility] [id number] [place] [address] Feb, Occult blood in stools 792.1 [id number] [place] [address] [id number] Feb, Anemia 285.9 ; Occult blood positive stool 792.1 ; Unspecified essential hypertension 401.9 and Other chronic pain 338.29 [facility] [place] [id number], [place] [id number] Feb, [facility] [place] [id number] [place] [address] [id number] Feb, Anemia 285.9 [facility] [place] [id number], [place] [id number] Feb, [facility] [place] [id number] [place] [address] [id number] Feb, [facility] [place] [id number] [place] [address] [id number] Feb, Diabetes with renal manifestations, type II or unspecified type, not stated as uncontrolled 250.40 ; Other chronic pain 338.29 ; Unspecified essential hypertension 401.9 ; Anemia 285.9 and Depression 311 [facility] [place] [id number] [place] [address] [id number] Jan, [facility] [id number] [place] [address] [id number] Jan, Anemia 285.9 and Follow up V67.9 [facility] [place] [id number], [place] [id number] Jan, [facility] [id number] [place] [address] [id number] Jan, [facility] [place] [id number] [place] [address] [id number] Jan, [facility] [id number] [place] [address] [id number] Dec, [facility] [id number] [address] Oct, [facility] [id number] [place] [address] Oct, [facility] [id number] [place] [address] Sep, [facility] [address] [id number], [place] [id number] Sep, [facility] [id number] [place] [address] Sep, [facility] [address] [id number], [place] [id number] Aug, [facility] [place] [facility] [address] [facility] [id number], [place] [address] Aug, [facility] [place] [facility] [address] [facility] [id number], [place] [address] Aug, [facility] [place] [address] [id number], [place] [id number] Aug, [facility] [place] [facility] [address] [facility] [id number] [place] [address] Aug, [facility] [place] [facility] [address] [id number] [address] Aug, [facility] [address] [id number], [place] [id number] Aug, [facility] [place] [facility] [id number], [place] [address] Aug, [facility] [address] [facility] [id number], [place] [id number] Jul, [facility] [place] [facility] [id number], [place] [address] Jul, [facility] [place] [facility] [address] [id number], [place] [address] Jul, [facility] [address] [id number], [place] 743005359 Jul, [facility] [place] [facility] [address] [facility] [id number][place] [address] Jul, [facility] [address] [facility] [id number], [place] [id number] Jul, [facility] [place] [facility] [address] [facility] [id number], [place] [address] Jul, [facility] [address] [id number], [place] [id number] Jun, [facility] [address] [facility] [id number], [place] [id number] Jun, [facility] [place] [facility] [address] [facility] [id number] [place] [address] Jun, [facility] [place] [facility] [address] [facility] [id number] [place] [address] Jun, [facility] [address] [facility] [id number], [place] [id number] Jun, [facility] [place] [facility] [address] [facility] [id number], [place] [address] Jun, [facility] [address] [facility] [id number], [place] [id number] May, [facility] [place] [facility] [address] [id number] [address] May, [facility] [place] [facility] [id number], [place] [address] May, [facility] [address] [facility] [id number], [place] [id number] Apr, [facility] [place] [facility] [address] [facility] [id number], [place] [address] Apr, [facility] [address] [facility] [id number], [place] 044642427 Apr, [facility] [address] [facility] [id number], [place] [id number] Apr, [facility] [place] [facility] [address] [facility] [id number], [place] [address] Apr, [facility] [place] [facility] [address] [facility] [id number][place] [address] Apr, [facility] [address] [facility] [id number], [place] [id number] Mar, [facility] [place] [facility] [address] [facility] [id number], [place] [address] Mar, [facility] [address] [facility] [id number], [place] [id number] Mar, [facility] [place] [facility] [address] [id number] [place] [address] Mar, [facility] [address] [id number] [place] [id number] Mar, [facility] [place] [facility] [address] [facility] [id number] [place] [address] Mar, [facility] [address] [id number] [place] [id number] Mar, [facility] [place] [facility] [address] [id number] [place] [address] Mar, [facility] [address] [id number] [place] [id number] Mar, [facility] [place] [facility] [address] [facility] [id number] [place] [address] Mar, [facility] [address] [facility] [id number] [place] 039613083 Feb, [facility] [place] [facility] [address] [facility] [id number], [place] [address] Feb, [facility] [address] [facility] [id number], [place] [id number] Jan, [facility] [place] [facility] [address] [facility] [id number][place] [address] Jan, [facility] [address] [facility] [id number] [place] 038179151 Jan, [facility] [place] [facility] [address] [facility] [id number][place] [address] Jan, [facility] [address] [facility] [id number], [place] [id number] Jan, [facility] [place] [facility] [address] [facility] [id number] [place] [address] Jan, [facility] [place] [facility] [address] [facility] [id number], [place] [address] Dec, [facility] [place] [facility] [address] [facility] [id number][place] [address] Dec, [facility] [address] [id number] [place] 635711856 November, [facility] [place] [facility] [address] [id number] [place] [address] November, [facility] [address] [id number] [place] [id number] November, [facility] [place] [facility] [address] [id number] [place] [address] November, [facility] [address] [id number] [place] [id number] Oct, [facility] [place] [facility] [address] [id number] [place] [address] Oct, [facility] [place] [facility] [address] [facility] [id number] [place] [address] Oct, [facility] [place] [facility] [address] [facility] [id number] [place] [address] Oct, [facility] [place] [facility] [address] [id number] [place] [address] Oct, [facility] [place] [facility] [address] [facility] [id number] [place] [address] Oct, [facility] [address] [id number] [place] 829791447 Sep, [facility] [address] [id number] [place] 326628667 Sep, [facility] [place] [facility] [address] [id number] [place] [address] Sep, [facility] [place] [facility] [address] [id number] [place] [address] Sep, [facility] [address] [id number] [place] [id number] Sep, [facility] [place] [facility] [address] [facility] [id number] [place] [address] Sep, [facility] [place] [facility] [address] [facility] [id number], [place] [address] Aug, [facility] [place] [facility] [address] [facility] [id number], [place] [address] Aug, [facility] [address] [facility] [id number], [place] [id number] Aug, [facility] [address] [facility] [id number] [place] [id number] Aug, [facility] [place] [facility] [address] [facility] [id number][place] [address] Aug, [facility] [address] [facility] [id number] [place] 531425397 Aug, [facility] [place] [facility] [id number], [place] [address] Aug, [facility] [address] [id number], [place] 364153396 Aug, [facility] [place] [facility] [id number] [address] Aug, [facility] [address] [facility] [id number], [place] [id number] Aug, [facility] [place] [facility] [id number] [address] Aug, [facility] [address] [id number], [place] 831465603 Aug, [facility] [place] [facility] [id number] [address] Aug, [facility] [place] [facility] [address] [facility] [id number], [place] [address] Jul, [facility] [address] [facility] [id number], [place] 783926814 Jun, [facility] [place] [facility] [address] [id number] [address] Jun, [facility] [place] [facility] [id number], [place] [address] Jun, [facility] [place] [facility] [address] [id number] [place] [address] Jun, [facility] [address] [facility] [id number], [place] 767289452 Jun, [facility] [place] [facility] [address] [id number] [address] Jun, [facility] [place] [facility] [address] [facility] [id number], [place] [address] Jun, [facility] [address] [facility] [id number] [place] 403727609 Jun, [facility] [place] [facility] [address] [facility] [id number], [place] [address] Jun, [facility] [place] [facility] [address] [id number] [address] May, [facility] [address] [id number], [place] 141965735 May, [facility] [place] [facility] [address] [id number] [address] May, [facility] [place] [facility] [address] [id number] [address] May, [facility] [place] [facility] [address] [id number] [address] May, [facility] [place] [facility] [address] [facility] [id number] [address] May, [facility] [address] [facility] [id number], [place] 555191586 May, [facility] [place] [facility] [address] [facility] [id number], [place] [address] May, [facility] [address] [facility] [id number], [place] 737895484 May, [facility] [place] [facility] [address] [facility] [id number], [place] [address] May, [facility] [place] [address] [facility] [id number], [place] 737248608 Apr, [facility] [place] [facility] [address] [facility] [id number], [place] [address] Apr, [facility] [place] [facility] [address] [facility] [id number] [address] Apr, [facility] [address]00565100[place], [place] 192856412 Apr, [facility] [place] [facility] [address] [facility] [id number][place] [address] Apr, [facility] [place] [facility] [id number], [place] [address] Apr, [facility] [id number], [place] 745362246 Apr, [facility] [place] [facility] [id number], [place] [address] Apr, [facility] [place] [facility] [address] [facility] [id number], [place] [address] Apr, [facility] [place] [facility] [id number], [place] [address] Apr, [facility] [id number], [place] 750737280 Apr, [facility] [place] [facility] [address] [facility] [id number], [place] [address] Apr, [facility] [id number], [place] 445854936 Apr, [facility] [place] [facility] [address] [facility] [id number], [place] [address] Apr, [facility] [place] [address] [facility] [id number], [place] 767297690 Apr, [facility] [place] [facility] [id number], [place] [address] Apr, [facility] [place] [facility] [address] [facility] [id number], [place] [address] Apr, [facility] [address] [facility] [id number], [place] [address] Apr, [facility] [place] [address] [id number], [place] 710072183 Apr, [facility] [address] [facility] [id number], [place] [address] Mar, [facility] [address] [facility] [id number], [place] [address] Mar, [facility] [address] [id number] [place] 510236337 Mar, [facility] [address] [id number] [place] 335137589 Mar, [facility] [address] [id number] [place] 692484640 Mar, [facility] [address] [id number] [place] 462624606 Feb, [facility] [address] [id number] [place] 176491906 Feb, [facility] [address] [id number] [place] 253398927 Feb, [facility] [address] [facility] [id number] [address] Feb, [facility] [address] [id number], [place] 482618992 Feb, [facility] [address] [id number] [place] 958219239 Feb, [facility] [address] [id number] [place] 748726995 Feb, [facility] [address] [id number] [place] 905118524 Feb, [facility] [address] [id number] [place] 265662655 Feb, [facility] [address] [id number] [place] 833503401 Jan, [facility] [place] [address] [id number] [place] 487476382 Jan, [facility] [place] [address] [id number] [place] 600291150 Jan, [facility] [place] [address] [id number] [place] 640935232 Jan, [facility] [place] [address] [id number] [place] 422407367 Jan, [facility] [address]00565100[place], [place] [address] Jan, [facility] [place] [address] [id number] [place] 404508782 Jan, [facility] [place] [address] [id number] [place] 169599041 Jan, [facility] [place] [address] [id number] [place] 950408532 Dec, [facility] [place] [address] [id number] [place] 738965601 November, [facility] [place] [address] [id number] [place] 429174475 November, [facility] [place] [address] [id number] [place] 882814677 November, [facility] [place] [address] [id number] [place] 806533368 November, [facility] [address] [id number] [place] 635759267 November, [facility] [address] [id number] [place] 109579598 November, [facility] [address] [id number] [place] 003076480 Jul, [facility] [address] [id number] [place] 668968732 Jul, [facility] [address] [id number] [place] 115649576 Jul, [facility] [address] [id number] [place] 027287573 Jun, [facility] [id number] [address] Jun, [facility] [place] [address] [id number][place] [id number] May, [facility] [place] [facility] [address] [facility] [id number] [address] May, [facility] [place] [address] [id number][place] [id number] May, [facility] [place] [facility] [address] [facility] [id number] [address] May, [facility] [place] [address] [id number][place] [id number] May, [facility] [place] [facility] [address] [facility] [id number] [address] May, [facility] [place] [address] [facility] [id number][place] [id number] Apr, [facility] [place] [facility] [id number] [address] Apr, [facility] [place] [facility] [address] [facility] [id number] [address] 18 Apr, 2012 [facility] [place] [address] [id number], [place] [id number] Apr, [facility] [place] [address] [id number], [place] [id number] Apr, [facility] [place] [facility] [address] [facility] [id number], [place] [address] Apr, [facility] [place] [facility] [address] [facility] [id number], [place] [address] Apr, [facility] [place] [address] [id number], [place] [id number] Apr, [facility] [place] [facility] [address] [facility] [id number], [place] [address] 10 Apr, 2012 [facility] [place] [address] [id number], [place] [id number] 09 Apr, 2012 [facility] [place] [address] [id number] [place] [id number] Apr, [facility] [place] [address] [id number] [place] [id number] Mar, [facility] [place] [address] [id number] [place] [id number] Feb, [facility] [place] [address] [id number] [place] [id number] Jan, [facility] [place] [address] [id number] [place] [address] Dec, [facility] [place] [address] [id number] [place] [id number] Dec, [facility] [place] [address] [id number] [place] [id number] Dec, [facility] [place] [address] [id number] [place] [id number] Dec, [facility] [place] [address] [id number] [place] [address] Dec, [facility] [place] [address] [id number] [place] [id number] November, [facility] [place] [address] [id number] [place] [id number] November, [facility] [place] [address] [id number] [place] [id number] November, [facility] [address] [facility] [id number], [place] [address] November, [facility] [place] [address] [id number] [place] [id number] November, [facility] [place] [address] [id number] [place] [id number] November, [facility] [place] [address] [id number] [place] [id number] Oct, [facility] [place] [address] [id number] [place] [id number] Oct, [facility] [place] [address] [id number] [place] [id number] Oct, [facility] [place] [address] [id number] [place] [id number] Oct, [facility] [place] [address] [id number] [place] [id number] Oct, [facility] [place] [address] [id number] [place] [id number] Oct, [facility] [place] [address] [id number] [place] [id number] Sep, [facility] [place] [address] [id number] [place] [id number] Aug, [facility] [place] [address] [id number] [place] [id number] Aug, [facility] [place] [address] [id number] [place] [id number] Jul, [facility] [place] [facility] [address] [facility] [id number], [place] [address] Jun, [facility] [place] [facility] [address] [id number] [address] Jun, [facility] [place] [facility] [id number] [address] Jun, [facility] [place] [facility] [id number] [address] Jun, [facility] [place] [facility] [id number] [address] May, [facility] [place] [facility] [id number] [address] May, [facility] [place] [facility] [address] [id number] [address] Apr, [facility] [place] [facility] [id number] [address] Apr, [facility] [place] [facility] [id number] [address] Apr, [facility] [place] [facility] [id number] [address] Feb, [facility] [place] [facility] [address] [id number] [address] 15 Aug, 2010 [facility] [address] [id number] [place] [address] 18 Jul, 2010 [facility] [place] [facility] [address] [id number] [place] [address] 30 Jun, 2010 [facility] [address] [id number] [place] [address] 29 May, 2010 [facility] [place] [facility] [address] [id number] [place] [address] May, [facility] [address] [id number] [place] [address] May, [facility] [address] [facility] [id number] [place] [address] May, [facility] [address] [facility] [id number] [place] [address] May, [facility] [address] [id number] [place] [address] 16 Aug, 2009 [facility] [address] [facility] [id number] [place] [address] Jun, [facility] [address] [facility] [id number] [place] [address] Jun, [facility] [place] [facility] [address] [facility] [id number] [place] [address] Jun, [facility] [place] [facility] [address] [id number] [place] [address] 24 May, 2009 [facility] [place] [facility] [address] [id number] [place] [address] 28 Apr, 2009 [facility] [place] [facility] [address] [facility] [id number] [place] [address] Apr, [facility] [place] [facility] [address] [facility] [id number] [place] [address] Apr, [facility] [address] [facility] [id number] [address] Jan, [facility] [address] [facility] [id number] [address] Oct, [facility] [address] [facility] [id number], [place] [address] May, [facility] [address] [facility] [id number][place] [address] May, IMMUNIZATIONS No Known Immunizations SOCIAL HISTORY Never Assessed REASON FOR VISIT EMR-[facility] PLAN OF CARE VITAL SIGNS MEDICATIONS Unknown [...] Dialysis [facility] 2012 -Dr. Simon now [facility] Medical History Colonoscopy (polyps 2 ) [...]
[2018-12-28] MEDS: LIDOCAINE/EPI 2% 1:100,00 (XYLOCAINE) 20 ML VIAL INJ ONE ×2 (17:44→18:13)
--- OUTSIDE RECORDS SUMMARY | 2018-12-28 17:44 | XMS REPORT ---
Author Author Migration, Doctor Organization [facility] Address Unknown Phone Unavailable Care Team Providers Care Consumer Safety Inspector Name Role Phone Migration, Doctor Unavailable Unavailable PROBLEMS Type Condition ICD9-CM Code WOW73-JO Code Onset Dates Condition Status SNOMED Code Problem Essential hypertension I10 Active 67783082 Problem medical terminologist current use of anticoagulant Z79.01 Active 378523081 Problem Chronic pain syndrome G89.4 Active 190650215 Problem Sleep apnea in adult G47.33 Active 31684498 Problem Diabetic polyneuropathy associated with type 2 diabetes mellitus E11.42 Active 01043980 Problem Primary insomnia F51.01 Active 7236108 Problem Chronic obstructive pulmonary disease, unspecified COPD type J44.9 Active 34314014 Problem Right carpal tunnel syndrome G56.01 Active 086080044708125 Problem Gastroesophageal reflux disease without esophagitis K21.9 Active 027419210 Problem 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 Active 483373926218841 Problem Chronic kidney disease, stage 4 (severe) N18.4 Active 983653025 Problem Type 2 diabetes mellitus with hyperglycemia E11.65 Active 312862866794132 Problem Psoriasis of scalp L40.9 Active 330722734 Problem Carpal tunnel syndrome, bilateral G56.03 Active 57503888187371692 Problem Depression, unspecified depression type F32.9 Active 08966254 Problem Type 2 diabetes mellitus with other diabetic kidney complication E11.29 Active 164738762 Problem Fibromyalgia M79.7 Active 408084304 Problem Oxygen desaturation during sleep G47.34 Active 431582798 Problem Anemia in other chronic diseases classified elsewhere D63.8 Active 183422623 Problem History of DVT (deep vein thrombosis) Z86.718 Active 942340046 Problem Paresthesia of right upper extremity R20.2 Active 63266548 Problem correction 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 Active 356050908 Problem Supplemental oxygen dependent Z99.81 Active 637227558412 Problem Bilateral lower extremity edema R60.0 Active [id number] ALLERGIES No Information ENCOUNTERS Encounter Location Date Diagnosis [facility] [address] [address] Apr, [facility] [address] [address] Feb, [facility] [address] [place] [address] Feb, [facility] [address] [address] Jan, [facility] [address] [address] Jan, [facility] [address] [place] [address] Jan, [address] [id number] Jan, [facility] [address] [address] Jan, [facility] [address] [address] Jan, [facility] [address] [address] Jan, Essential hypertension I10 [facility] [address] [address] Jan, Chronic obstructive pulmonary disease, unspecified COPD type J44.9 [facility] [id number] [address] Jan, [facility] [id number] [address] Jan, [facility] [id number] [address] Jan, Type 2 diabetes mellitus with other diabetic kidney complication E11.29 ; Anemia in other chronic diseases classified elsewhere D63.8 ; Chronic obstructive pulmonary disease, unspecified COPD type J44.9 and BMI 60.0-69.9, adult Z68.44 [facility] [place] [facility] [id number] [address] Jan, [facility] [id number] [place] [address] Jan, [facility] [id number] [id number] Jan, [facility] [id number] [place] [id number] Dec, [facility] [id number] [place] [id number] Dec, [facility] [address] [place] [id number] Dec, Essential hypertension I10 ; Type 2 diabetes mellitus with other diabetic kidney complication E11.29 ; Depression, unspecified depression type F32.9 ; Supplemental oxygen dependent Z99.81 ; Chronic pain syndrome G89.4 ; Fibromyalgia M79.7 ; Carpal tunnel syndrome, bilateral G56.03 and Chronic kidney disease, stage 4 (severe) N18.4 [facility] [id number] [place] [address] Dec, Essential hypertension I10 [facility] [id number] [place] [address] November, Type 2 diabetes mellitus with other diabetic kidney complication E11.29 [facility] [id number] [place] [address] November, Chronic pain syndrome G89.4 [facility] [address] [address] November, [facility] [id number] [place] [address] November, [facility] [id number] [place] [address] November, [facility] [address] [place] [address] Oct, Type 2 diabetes mellitus with other diabetic kidney complication E11.29 [place] [address] [address] Oct, Primary insomnia F51.01 [facility] [id number] [id number] Oct, Bilateral lower extremity edema R60.0 [place] [address] [place] [address] Oct, [place] [address] [place] [address] Sep, Type 2 diabetes mellitus with other diabetic kidney complication E11.29 and Chronic obstructive pulmonary disease, unspecified COPD type J44.9 [place] [address] [place] [address] 15 Aug, 2017 Type 2 diabetes mellitus with other diabetic kidney complication E11.29 [address] [place] [address] 12 Aug, 2017 Gastroesophageal reflux disease without esophagitis K21.9 ; correction current use of anticoagulant Z79.01 ; Chronic pain syndrome G89.4 ; Essential hypertension I10 and Type 2 diabetes mellitus with other diabetic kidney complication E11.29 [place] [address] [address] 08 Aug, 2017 Chronic pain syndrome G89.4 [place] [address] [address] Aug, Type 2 diabetes mellitus with other diabetic kidney complication E11.29 [place] [address], [place] [address] Jul, Diabetic polyneuropathy associated with type 2 diabetes mellitus E11.42 [place] [address] [address] Jul, Primary insomnia F51.01 [facility] [address] [address] Jul, [place] [address] [address] Jul, Type 2 diabetes mellitus with other diabetic kidney complication E11.29 and Chronic obstructive pulmonary disease, unspecified COPD type J44.9 [place] [address], [place] [address] 08 Jul, 2017 Type 2 diabetes mellitus with other diabetic kidney complication E11.29 [place] [id number] [place] [address] Jun, Type 2 diabetes mellitus with other diabetic kidney complication E11.29 [place] [id number] [place] [address] 27 Jun, 2017 [place] [id number] [place] [address] Jun, Chronic obstructive pulmonary disease, unspecified COPD type J44.9 [place] [id number] [place] [address] May, Type 2 diabetes mellitus with other diabetic kidney complication E11.29 [place] [address] [address] May, medical terminologist current use of anticoagulant Z79.01 and Essential hypertension I10 [place] [id number] [place] [address] May, Anemia in other chronic diseases classified elsewhere D63.8 ; Chronic obstructive pulmonary disease, unspecified COPD type J44.9 ; Oxygen desaturation during sleep G47.34 ; Sleep apnea in adult G47.33 and Supplemental oxygen dependent Z99.81 [address] [place] [address] May, Type 2 diabetes mellitus with other [...] legs R60.0 and Supplemental oxygen dependent Z99.81 [place] [address] [address] May, [place] [id number] [place] [address] May, Essential hypertension I10 and Gastroesophageal reflux disease without esophagitis K21.9 [place] [address] [address] May, [place] [address] [address] May, Type 2 diabetes mellitus with other diabetic kidney complication E11.29 and correction current use of anticoagulant Z79.01 [place] [id number] [place] [address] Apr, Chronic pain syndrome G89.4 and Essential hypertension I10 [place] [id number] [place] [address] Apr, Type 2 diabetes mellitus with other diabetic kidney complication E11.29 [place] [id number] [place] [address] Apr, Type 2 diabetes mellitus with other diabetic kidney complication E11.29 [place] [id number] [place] [address] Apr, Essential hypertension I10 [place] [id number] [place] [address] Apr, Gastroesophageal reflux disease without esophagitis K21.9 [place] [id number] [place] [address] Apr, Type 2 diabetes mellitus with other diabetic kidney complication E11.29 [place] [id number] [place] [address] Apr, Type 2 diabetes mellitus with other diabetic kidney complication E11.29 and medical terminologist current use of anticoagulant Z79.01 [facility] [address] [place] [address] 27 Mar, 2017 Encounter for immunization Z23 and Preoperative examination Z01.818 [facility] [id number] [place] [address] Mar, [facility] [id number] [place] [address] Mar, Type 2 diabetes mellitus with other diabetic kidney complication E11.29 [place] [id number] [place] [address] 08 Mar, 2017 Type 2 diabetes mellitus with other diabetic kidney complication E11.29 [place] [id number] [place] [address] Mar, Gastroesophageal reflux disease without esophagitis K21.9 [place] [id number] [place] [address] Mar, Essential hypertension I10 [place] [id number] [place] [address] Feb, medical terminologist current use of anticoagulant Z79.01 [facility] [id number] [place] [address] Feb, Type 2 diabetes mellitus with other diabetic kidney complication E11.29 [facility] [id number] [place] [address] Feb, Type 2 diabetes mellitus with other diabetic kidney complication E11.29 [place] [id number] [place] [address] Feb, Type 2 diabetes mellitus with other diabetic kidney complication E11.29 [place] [id number] [place] [address] Feb, Gastroesophageal reflux disease without esophagitis K21.9 [facility] [id number] [place] [address] Feb, Type 2 diabetes mellitus with other diabetic kidney complication E11.29 [facility] [address] [address] Feb, correction current use of anticoagulant Z79.01 [facility] [address], [place] [address] Jan, Type 2 diabetes mellitus with other diabetic kidney complication E11.29 [facility] [id number] [address] Jan, Type 2 diabetes mellitus with other diabetic kidney complication E11.29 [facility] [address] [address] Jan, Chronic pain syndrome G89.4 [facility] [address], [place] [address] Jan, [facility] [id number] [address] Jan, [facility] [address], [place] [address] Jan, [facility] [address] [place] [address] Jan, [facility] [address], [place] [address] Jan, Primary insomnia F51.01 ; Type 2 diabetes mellitus with other diabetic kidney complication E11.29 ; Chronic pain syndrome G89.4 and Essential hypertension I10 [facility] [address] [address] Jan, Primary insomnia F51.01 [facility] [address], [place] [address] Jan, Type 2 diabetes mellitus with other diabetic kidney complication E11.29 [facility] [address] [address] Jan, [facility] [id number] [place] [address] Jan, Chronic obstructive pulmonary disease, unspecified COPD type J44.9 [facility] [id number] [place] [address] Jan, Essential hypertension I10 ; Type 2 diabetes mellitus with other diabetic kidney complication E11.29 ; Chronic obstructive pulmonary disease, unspecified COPD type J44.9 ; Chronic kidney disease, stage 4 (severe) N18.4 ; Right carpal tunnel syndrome G56.01 ; 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 ; correction (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 and Diabetic polyneuropathy associated with type 2 diabetes mellitus E11.42 [place] [id number] [place] [address] Jan, Gastroesophageal reflux disease without esophagitis K21.9 [place] [id number] [place] [address] Dec, [facility] [id number] [place] [address] Dec, [facility] [id number] [place] [address] Dec, correction current use of anticoagulant Z79.01 ; Chronic pain syndrome G89.4 and Essential hypertension I10 [facility] [id number] [place] [address] Dec, [facility] [id number] [place] [address] Dec, Type 2 diabetes mellitus with other diabetic kidney complication E11.29 [facility] [id number] [address] Dec, [facility] [id number] [place] [address] Dec, Gastroesophageal reflux disease without esophagitis K21.9 [facility] [id number] [place] [address] November, Type 2 diabetes mellitus with other diabetic kidney complication E11.29 [facility] [address], [place] [address] November, [facility] [id number] [place] [address] November, Type 2 diabetes mellitus with other diabetic kidney complication E11.29 [facility] [id number] [place] [address] November, [facility] [id number] [place] [address] November, Type 2 diabetes mellitus with other diabetic kidney complication E11.29 [facility] [id number] [place] [address] November, [facility] [id number] [place] [address] Oct, Essential hypertension I10 [facility] [id number] [place] [address] Oct, Psoriasis of scalp L40.9 [facility] [id number] [place] [address] Oct, Essential hypertension I10 and Chronic pain syndrome G89.4 [facility] [id number] [address] Oct, [facility] [address], [place] [address] Sep, Type 2 diabetes mellitus with other diabetic kidney complication E11.29 [facility] [address] [address] Sep, [facility] [id number] [place] [address] Sep, Type 2 diabetes mellitus with other diabetic kidney complication E11.29 [facility] [address], [place] [address] 20 Mar, 2017 Type 2 diabetes mellitus with other diabetic kidney complication E11.29 [place] [id number] [place] [address] 09 Sep, 2017 Type 2 diabetes mellitus with other diabetic kidney complication E11.29 ; Chronic kidney disease, stage 4 (severe) N18.4 ; Chronic obstructive pulmonary disease, unspecified COPD type J44.9 ; Iron deficiency anemia due to chronic blood loss D50.0 ; correction current use of anticoagulant Z79.01 ; Gastroesophageal reflux disease without esophagitis K21.9 ; Essential hypertension I10 ; Primary insomnia F51.01 ; Depression, unspecified depression type F32.9 ; Chronic pain syndrome G89.4 ; Wrist pain, right M25.531 ; Paresthesia of right upper extremity R20.2 and Psoriasis of scalp L40.9 [place] [id number] [place] [address] Sep, [address] [address] Aug, Essential hypertension I10 [place] [address] [address] Aug, History of DVT (deep vein thrombosis) Z86.718 [place] [id number] [place] [address] Aug, [place] [id number] [place] [address] Jul, [place] [id number] [place] [address] Jul, [place] [id number] [place] [address] Jul, correction current use of anticoagulant Z79.01 ; Chronic pain syndrome G89.4 and Chronic kidney disease, stage 4 (severe) N18.4 [place] [id number] [place] [address] Jul, [place] [address] [place] [address] Jul, [place] [address] [place] [address] Jul, [place] [id number] [place] [address] Jul, [place] [id number] [place] [address] Jul, [place] [id number] [place] [address] Jul, Type 2 diabetes mellitus with other diabetic kidney complication E11.29 [id number] [place] [address] Jul, History of DVT (deep vein thrombosis) Z86.718 [place] [id number] [place] [address] Jun, [place] [id number] [place] [address] Jun, History of DVT (deep vein thrombosis) Z86.718 [place] [id number] [place] [address] 15 Jun, 2016 Post traumatic stress disorder (PTSD) F43.10 [place] [id number] [place] [address] 07 Jun, 2016 Type 2 diabetes mellitus [...] and Right wrist pain M25.531 [facility] [id number] [place] [address] May, [facility] [id number] [place] [address] May, [facility] [address] [address] May, [facility] [id number] [place] [address] May, [facility] [id number] [place] [address] May, Anemia in other chronic diseases classified elsewhere D63.8 [facility] [address] [address] May, [facility] [id number] [place] [address] Apr, [facility] [id number] [place] [address] 27 Mar, 2016 Dermatofibroma D23.9 [facility] [id number] [place] [address] 20 Mar, 2016 [facility] [id number] [place] [address] 14 Mar, 2016 Chronic pain syndrome G89.4 [facility] [id number] [place] [address] 09 Mar, 2016 [facility] [id number] [place] [address] 07 Mar, 2016 [facility] [id number] [place] [address] 06 Mar, 2016 [facility] [address] [address] Feb, [facility] [address] [address] Feb, [facility] [address] [address] Feb, [facility] [address] [place] [address] Feb, [facility] [address] [place] [address] Feb, [facility] [address] [place] [address] Feb, [facility] [address] [place] [address] Feb, Type 2 diabetes mellitus with other [...] chronic, stage 4 (severe) N18.4 [facility] [address] [address] Feb, Skin tags, multiple acquired L91.8 [facility] [id number] [place] [address] Jan, [facility] [id number] [id number] Jan, Dental examination Z01.20 [facility] [id number] [place] [phone] Jan, [facility] [address] [place], [place] [id number] [place] [id number] Jan, Type 2 diabetes mellitus with other [...] Renal failure, chronic, stage 4 (severe) N18.4 [id number] [place] [phone] Dec, Diabetes type 2, uncontrolled E11.65 [place] [place] [id number] [place] [id number] Dec, [place] [id number] [place] [id number] Dec, Type 2 diabetes mellitus with other [...] F51.01 and Depression, unspecified depression type F32.9 [facility] [address] [id number] [id number] Dec, Dental caries K02.9 [facility] [address] [id number] [place] [address] [id number] Dec, [facility] [address] [id number] [place] [address] Dec, Dental examination Z01.20 [facility] [address] [id number] [place] [id number] November, Dental examination Z01.20 and Dental caries K02.9 [facility] [address] [id number] [place] [address]623[address] Oct, [facility] [address] [id number] [place] [address] [id number] Oct, [facility] [address] [id number] [place] [id number] Sep, [facility] [address] [id number] [place] [address] [id number] Sep, [facility] [address] [id number] [place] [address] [id number] Sep, [facility] [address] [id number] [place] [address] [id number] Sep, Other chronic pain 338.29 [facility] [address] [id number] [place] [id number] Aug, Diabetes type 2, uncontrolled E11.65 and Morbid obesity due to excess calories E66.01 [facility] [address] [id number] [place] [id number] Aug, Hair loss L65.9 [facility] [address] [id number] [place] [id number] Aug, [facility] [address] [id number] [place] [id number] Jul, [facility] [address] [id number] [place] [id number] Jul, [facility] [address] [id number] [place] [address] [id number] Jun, [facility] [address] [id number] [place] [address] [id number] Jun, Hair loss L65.9 and Disorder of the skin and subcutaneous tissue, unspecified L98.9 [id number] [place] [address] [id number] May, Type 2 diabetes mellitus with other diabetic kidney complication E11.29 ; Type 2 diabetes mellitus with hyperglycemia E11.65 ; Morbid obesity due to excess calories E66.01 and Essential hypertension I10 [place] [id number] [place] [address] [id number] May, Diabetes type 2, uncontrolled E11.65 ; Encounter for immunization Z23 and Morbid obesity due to excess calories E66.01 [place] [id number] [place] [address] [id number] May, [facility] [address] [address] Apr, [address] [id number] Apr, Hyperglycemia R73.[address] [id number] Apr, [address] [id number] Apr, Depression F32.9 ; Encounter for immunization Z23 ; Hyperglycemia R73.9 and Anemia in other chronic diseases classified elsewhere D63.8 [facility] [place] [address] [place] [address] [id number] Mar, [id number] [place] [address] [id number] Feb, Positive occult stool blood test 792.1 [place] [id number] [place] [address] [id number] Feb, Depression 311 ; Other chronic pain 338.29 and Diabetes with renal manifestations, type II or unspecified type, not stated as uncontrolled 250.40 [facility] [id number] [place] [address] Feb, Occult blood in stools 792.[id number] [place] [address] [id number] Feb, Anemia 285.9 ; Occult blood positive stool 792.1 ; Unspecified essential hypertension 401.9 and Other chronic pain 338.29 [facility] [id number] [place] [id number] Feb, [facility] [id number] [place] [address] [id number] Feb, Anemia 285.9 [facility] [id number] [place] [id number] Feb, [facility] [id number] [place] [address] [id number] Feb, [facility] [id number] [place] [address] [id number] Feb, Diabetes with renal manifestations, type II or unspecified type, not stated as uncontrolled 250.40 ; Other chronic pain 338.29 ; Unspecified essential hypertension 401.9 ; Anemia 285.9 and Depression 311 [facility] [id number] [place] [address] [id number] Jan, [facility] [id number] [place] [address] [id number] Jan, Anemia 285.9 and Follow up V67.9 [facility] [id number] [place] [id number] Jan, [facility] [id number] [place] [address] [id number] Jan, [facility] [id number] [place] [address] [id number] Jan, [facility] [id number] [place] [address] [id number] Dec, [facility] [address]00565100[place] [address] Oct, [facility] [id number] [place] [address] Oct, [facility] [id number] [place] [address] Sep, [facility] [address] [id number] [place] 945151379 Sep, [facility] [id number] [place] [address] Sep, [facility] [address] [id number] [place] [id number] Aug, [facility] [place] [facility] [address] [facility] [id number], [place] [address] Aug, [facility] [place] [facility] [address] [facility] [id number], [place] [address] Aug, [facility] [place] [address] [id number] [place] [id number] Aug, [facility] [place] [facility] [address] [facility] [id number] [place] [address] Aug, [facility] [place] [facility] [address] [id number] [address] Aug, [facility] [place] [address] [id number] [place] [id number] Aug, [facility] [place] [facility] [address]00565100[place] [address] Aug, [facility] [address] [facility] [id number] [place] [id number] Jul, [facility] [place] [facility] [address]00565100[place], [place] [address] Jul, [facility] [place] [facility] [address] [id number] [address] Jul, [facility] [address] [id number] [place] [id number] Jul, [facility] [place] [facility] [address] [facility] [id number], [place] [address] Jul, [facility] [address] [facility] [id number] [place] [id number] Jul, [facility] [place] [facility] [address] [facility] [id number][place] [address] Jul, [facility] [address] [id number] [place] [id number] Jun, [facility] [address] [facility] [id number] [place] [id number] Jun, [facility] [place] [facility] [address] [facility] [id number] [place] [address] Jun, [facility] [place] [facility] [address] [facility] [id number] [place] [address] Jun, [facility] [address] [facility] [id number] [place] [id number] Jun, [facility] [place] [facility] [address] [facility] [id number][place] [address] Jun, [facility] [place] [address] [facility] [id number] [place] [id number] May, [facility] [place] [facility] [address] [id number] [address] May, [facility] [place] [facility] [address]65100[place] [address] May, [facility] [place] [address] [facility] [id number] [place] [id number] Apr, [facility] [place] [facility] [address] [facility] [id number][place] [address] Apr, [facility] [place] [address] [facility] [id number] [place] 969489969 Apr, [facility] [address] [facility] [id number] [place] [id number] Apr, [facility] [place] [facility] [address] [facility] [id number], [place] [address] Apr, [facility] [place] [facility] [address] [facility] [id number][place] [address] Apr, [facility] [address] [facility] [id number] [place] [id number] Mar, [facility] [place] [facility] [address] [facility] [id number][place] [address] Mar, [facility] [address] [facility] [id number] [place] 751105910 Mar, [facility] [place] [facility] [address] [id number] [place] [address] Mar, [facility] [address] [id number] [place] 3025616[address] Mar, [facility] [place] [facility] [address] [facility] [id number] [place] [address] Mar, [facility] [address] [id number] [place] [id number] Mar, [facility] [place] [facility] [address] [id number] [place] [address] Mar, [facility] [address] [id number] [place] [id number] Mar, [facility] [place] [facility] [address] [facility] [id number] [place] [address] Mar, [facility] [address] [facility] [id number] [place] [id number] Feb, [facility] [place] [facility] [address] [facility] [id number][place] [address] Feb, [facility] [address] [facility] [id number] [place] 766639134 Jan, [facility] [place] [facility] [address] [facility] [id number][place] [address] Jan, [facility] [address] [facility] [id number] [place] [id number] Jan, [facility] [place] [facility] [address] [facility] [id number][place] [address] Jan, [facility] [address] [facility] [id number] [place] 651985313 Jan, [facility] [place] [facility] [address] [facility] [id number] [place] [address] Jan, [facility] [place] [facility] [address] [facility] [id number][place] [address] Dec, [facility] [place] [facility] [address] [facility] [id number] [address] Dec, [facility] [address] [id number] [place] 734342597 November, [facility] [place] [facility] [address] [id number] [place] [address] November, [facility] [address] [id number] [place] 000132289 November, [facility] [place] [facility] [address] [id number] [place] [address] November, [facility] [address] [id number] [place] 744303334 Oct, [facility] [place] [facility] [address] [id number] [place] [address] Oct, [facility] [place] [facility] [address] [facility] [id number] [place] [address] Oct, [facility] [place] [facility] [address] [facility] [id number] [place] [address] Oct, [facility] [place] [facility] [address] [id number] [place] [address] Oct, [facility] [place] [facility] [address] [facility] [id number] [place] [address] Oct, [facility] [address] [id number] [place] 240459516 Sep, [facility] [address] [id number] [place] 575160471 Sep, [facility] [place] [facility] [address] [id number] [place] [address] Sep, [facility] [place] [facility] [address] [id number] [place] [address] Sep, [facility] [address] [id number] [place] 376419071 Sep, [facility] [place] [facility] [address] [facility] [id number] [place] [address] Sep, [facility] [place] [facility] [address] [facility] [id number][place] [address] Aug, [facility] [place] [facility] [address] [facility] [id number][place] [address] Aug, [facility] [address] [facility] [id number] [place] 804003761 Aug, [facility] [address] [facility] [id number] [place] 202285213 Aug, [facility] [place] [facility] [address] [facility] [id number], [place] [address] Aug, [facility] [address] [facility] [id number] [place] 591438604 Aug, [facility] [place] [facility] [address]00565100[place] [address] Aug, [facility] [address] [id number] [place] 659307719 Aug, [facility] [place] [facility] [address]00565100[place] [address] Aug, [facility] [address] [facility] [id number] [place] [id number] Aug, [facility] [place] [facility] [address]00565100[place] [address] Aug, [facility] [address] [id number] [place] 444980530 Aug, [facility] [place] [facility] [address]00565100[place], [place] [address] Aug, [facility] [place] [facility] [address] [facility] [id number][place] [address] Jul, [facility] [address] [facility] [id number] [place] 742697930 Jun, [facility] [place] [facility] [address] [id number] [address] Jun, [facility] [place] [facility] [address]00565100[place], [place] [address] Jun, [facility] [place] [facility] [address] [id number] [place] [address] Jun, [facility] [address] [facility] [id number] [place] 727120064 Jun, [facility] [place] [facility] [address] [id number] [place] [address] Jun, [facility] [place] [facility] [address] [facility] [id number][place] [address] Jun, [facility] [address] [facility] [id number] [place] 341301604 Jun, [facility] [place] [facility] [address] [facility] [id number][place] [address] Jun, [facility] [place] [facility] [address] [id number] [address] May, [facility] [place] [address] [id number] [place] 315390439 May, [facility] [place] [facility] [address] [id number] [address] May, [facility] [place] [facility] [address] [id number] [address] May, [facility] [place] [facility] [address] [id number] [address] May, [facility] [place] [facility] [address] [facility] [id number][place] [address] May, [facility] [address] [facility] [id number] [place] 446992612 May, [facility] [place] [facility] [address] [facility] [id number][place] [address] May, [facility] [address] [facility] [id number] [place] 397802207 May, [facility] [place] [facility] [address] [facility] [id number][place] [address] May, [facility] [address] [facility] [id number] [place] 099639679 Apr, [facility] [place] [facility] [address] [facility] [id number][place] [address] Apr, [facility] [place] [facility] [address] [facility] [id number][place] [address] Apr, [facility] [address]00565100[place] 933302605 Apr, [facility] [place] [facility] [address] [facility] [id number][place] [address] Apr, [facility] [place] [facility] [address]00565100[place], [place] [address] Apr, [facility] [place] [id number] [place] 745123056 Apr, [facility] [place] [facility] [address]00565100[place], [place] [address] Apr, [facility] [place] [facility] [address] [facility] [id number][place] [address] Apr, [facility] [place] [facility] [address]00565100[place], [place] [address] Apr, [facility] [id number] [place] 629050574 Apr, [facility] [place] [facility] [address] [facility] [id number], [place] [address] Apr, [facility] [id number] [place] 164518488 Apr, [facility] [place] [facility] [address] [facility] [id number][place] [address] Apr, [facility] [address] [facility] [id number] [place] 717360624 Apr, [facility] [place] [facility] [address]00565100[place], [place] [address] Apr, [facility] [place] [facility] [address] [facility] [id number][place] [address] Apr, [facility] [address] [facility] [id number][place] [address] Apr, [facility] [address] [id number] [place] 451519833 Apr, [facility] [address] [facility] [id number][place] [address] Mar, [facility] [address] [facility] [id number][place] [address] Mar, [facility] [address] [id number] [place] 05201[address] Mar, [facility] [address] [id number] [place] 515778325 Mar, [facility] [address] [id number] [place] 997814029 Mar, [facility] [address] [id number] [place] 127783511 Feb, [facility] [address] [id number] [place] 262617255 Feb, [facility] [address] [id number] [place] 713658302 Feb, [facility] [address] [facility] [id number][place] [address] Feb, [facility] [address] [id number] [place] 164209790 Feb, [facility] [address] [id number] [place] 274372628 Feb, [facility] [address] [id number] [place] 597611731 Feb, [facility] [address] [id number] [place] 542334380 Feb, [facility] [address] [id number] [place] 690366774 Feb, [facility] [address] [id number] [place] 865646763 Jan, [facility] [place] [address] [id number] [place] 863876372 Jan, [facility] [place] [address] [id number] [place] 856057751 Jan, [facility] [place] [address] [id number] [place] 283330596 Jan, [facility] [place] [address] [id number] [place] 588270321 Jan, [facility] [address]00565100[place], [place] [address] Jan, [facility] [place] [address] [id number] [place] 316637511 Jan, [facility] [place] [address] [id number] [place] 368733359 Jan, [facility] [address] [id number] [place] 327201267 Dec, [facility] [place] [address] [id number] [place] 070665944 November, [facility] [place] [address] [id number] [place] 471977320 November, [facility] [place] [address] [id number] [place] 834437807 November, [facility] [address] [id number] [place] 200188827 November, [facility] [address] [id number] [place] 797259276 November, [facility] [address] [id number] [place] 429219687 November, [facility] [place] [address] [id number] [place] 247288991 Jul, [facility] [address] [id number] [place] 236399738 Jul, [facility] [address] [id number] [place] 504087614 Jul, [facility] [place] [address] [id number] [place] 692705743 Jun, [facility] [address]00565100[place] [address] Jun, [facility] [place] [address] [id number] [place] 504431169 May, [facility] [place] [facility] [address] [facility] [id number], [place] [address] May, [facility] [address] [id number] [place] 987519205 May, [facility] [place] [facility] [address] [facility] [id number] [address] May, [facility] [address] [id number] [place] 366861004 May, [facility] [place] [facility] [address] [facility] [id number][place] [address] May, [facility] [place] [address] [facility] [id number] [place] [id number] Apr, [facility] [place] [facility] [id number], [place] [address] Apr, [facility] [place] [facility] [address] [facility] [id number][place] [address] 18 Apr, 2012 [facility] [place] [address] [id number] [place] [id number] Apr, [facility] [place] [address] [id number] [place] [id number] Apr, [facility] [place] [facility] [address] [facility] [id number][place] [address] Apr, [facility] [place] [facility] [address] [facility] [id number][place] [address] Apr, [facility] [place] [address] [id number] [place] [id number] Apr, [facility] [place] [facility] [address] [facility] [id number][place] [address] 10 Apr, 2012 [facility] [place] [address] [id number] [place] [id number] 09 Apr, 2012 [facility] [place] [address] [id number] [place] [id number] Apr, [facility] [place] [address] [id number] [place] [id number] Mar, [facility] [place] [address] [id number] [place] [id number] Feb, [facility] [place] [address] [id number] [place] [id number] Jan, [facility] [place] [address] [id number] [place] [id number] Dec, [facility] [place] [address] [id number] [place] [id number] Dec, [facility] [place] [address] [id number] [place] [id number] Dec, [facility] [place] [address] [id number] [place] [id number] Dec, [facility] [place] [address] [id number] [place] [id number] Dec, [facility] [place] [address] [id number] [place] [id number] November, [facility] [place] [address] [id number] [place] [id number] November, [facility] [place] [address] [id number] [place] [id number] November, [facility] [address] [facility] [id number][place] [address] November, [facility] [place] [address] [id number] [place] [id number] November, [facility] [place] [address] [id number] [place] [id number] November, [facility] [place] [address] [id number] [place] [id number] Oct, [facility] [place] [address] [id number] [place] [id number] Oct, [facility] [place] [address] [id number] [place] [id number] Oct, [facility] [place] [address] [id number] [place] [id number] Oct, [facility] [place] [address] [id number] [place] [id number] Oct, [facility] [place] [address] [id number] [place] [id number] Oct, [facility] [place] [address] [id number] [place] [id number] Sep, [facility] [place] [address] [id number] [place] [id number] Aug, [facility] [place] [address] [id number] [place] [address] Aug, [facility] [place] [address] [id number] [place] [id number] Jul, [facility] [place] [facility] [address] [facility] [id number][place] [address] Jun, [facility] [place] [facility] [address] [id number] [address] Jun, [facility] [place] [facility] [id number] [address] Jun, [facility] [place] [facility] [id number], [place] [address] Jun, [facility] [place] [facility] [id number], [place] [address] May, [facility] [place] [facility] [id number], [place] [address] May, [facility] [place] [facility] [address] [id number] [address] Apr, [facility] [place] [facility] [id number], [place] [address] Apr, [facility] [place] [facility] [id number], [place] [address] Apr, [facility] [place] [facility] [id number], [place] [address] Feb, [facility] [place] [facility] [address] [id number] [place] [address] 15 Aug, 2010 [facility] [address] [id number] [place] [address] 18 Jul, 2010 [facility] [place] [facility] [address] [id number] [place] [address] 30 Jun, 2010 [facility] [address] [id number] [place] [address] 29 May, 2010 [facility] [place] [facility] [address] [id number] [place] [address] May, [facility] [address] [id number] [place] [address] May, [facility] [address] [facility] [id number] [place] [address] May, [facility] [address] [facility] [id number] [place] [address] May, [facility] [address] [id number] [place] [address] 16 Aug, 2009 [facility] [facility] [address] [facility] [id number] [place] [address] Jun, [facility] [address] [facility] [id number] [place] [address] Jun, [facility] [place] [facility] [address] [facility] [id number] [place] [address] Jun, [facility] [place] [facility] [address] [id number] [place] [address] 24 May, 2009 [facility] [place] [facility] [address] [id number] [place] [address] 28 Apr, 2009 [facility] [place] [facility] [address] [facility] [id number] [place] [address] Apr, [facility] [place] [facility] [address] [facility] [id number] [place] [address] Apr, [facility] [address] [facility] [id number][place] [address] Jan, [facility] [address] [facility] [id number][place] [address] Oct, [facility] [address] [facility] [id number][place] [address] May, [facility] [address] [facility] [id number], [place] [address] May, IMMUNIZATIONS No Known Immunizations SOCIAL HISTORY Never Assessed [place] [place] VITAL SIGNS MEDICATIONS Unknown [...] Dialysis [facility] 2012 -Dr. Simon now [facility] Medical History Colonoscopy (polyps 2 ) [...]
[2018-12-28] MEDS ORDERED: HYDROcodone/APAP 5 MG/325 MG (LORTAB) TAB PO ONE (17:45)
--- OUTSIDE RECORDS SUMMARY | 2018-12-28 17:45 | XMS REPORT ---
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 Active 621111825 Problem Chronic pain syndrome G89.4 Active 286347582 Problem Sleep apnea in adult G47.33 Active 42345759 Problem Diabetic polyneuropathy associated with type 2 diabetes mellitus E11.42 Active 02452064 Problem Primary insomnia F51.01 Active 3340317 Problem Chronic obstructive pulmonary disease, unspecified COPD type J44.9 Active 30915618 Problem Right carpal tunnel syndrome G56.01 Active 722756731086256 Problem Gastroesophageal reflux disease without esophagitis K21.9 Active 666691525 Problem 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 Active 122747629435441 Problem Chronic kidney disease, stage 4 (severe) N18.4 Active 367640028 Problem Type 2 diabetes mellitus with hyperglycemia E11.65 Active 633496651164755 Problem Psoriasis of scalp L40.9 Active 531250745 Problem Carpal tunnel syndrome, bilateral G56.03 Active 41793523474598647 Problem Depression, unspecified depression type F32.9 Active 09913655 Problem Type 2 diabetes mellitus with other diabetic kidney complication E11.29 Active 295973868 Problem Fibromyalgia M79.7 Active 472540449 Problem Oxygen desaturation during sleep G47.34 Active 757328673 Problem Anemia in other chronic diseases classified elsewhere D63.8 Active 612740855 Problem History of DVT (deep vein thrombosis) Z86.718 Active 186498953 Problem Paresthesia of right upper extremity R20.2 Active 44290664 Problem halfway 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 Active 476226698 Problem Supplemental oxygen dependent Z99.81 Active 741002505537 Problem Bilateral lower extremity edema R60.0 Active 584587739 ALLERGIES No Information ENCOUNTERS Encounter Location Date Diagnosis [facility] [address] [address] Apr, [facility] [address], [place] [address] Feb, [facility] [address] [address] Feb, [facility] [address], [place] [address] Jan, [facility] [address], [place] [address] Jan, [facility] [address] [address] Jan, [address] [id number] Jan, [facility] [address], [place] [address] Jan, [facility] [address] [address] Jan, [facility] [address], [place] [address] Jan, Essential hypertension I10 [facility] [address], [place] [address] Jan, Chronic obstructive pulmonary disease, unspecified COPD type J44.9 [facility] [id number] [address] Jan, [facility] [id number], [place] [address] Jan, [facility] [id number], [place] [address] Jan, Type 2 diabetes mellitus with other diabetic kidney complication E11.29 ; Anemia in other chronic diseases classified elsewhere D63.8 ; Chronic obstructive pulmonary disease, unspecified COPD type J44.9 and BMI 60.0-69.9, adult Z68.44 [facility] [id number], [place] [address] Jan, [facility] [id number] [place] [address] Jan, [facility] [address] [id number] Jan, [facility] [id number] [place] [id number] Dec, [facility] [id number] [place] [id number] Dec, [facility] [address] [place] [id number] Dec, Essential hypertension I10 ; Type 2 diabetes mellitus with other diabetic kidney complication E11.29 ; Depression, unspecified depression type F32.9 ; Supplemental oxygen dependent Z99.81 ; Chronic pain syndrome G89.4 ; Fibromyalgia M79.7 ; Carpal tunnel syndrome, bilateral G56.03 and Chronic kidney disease, stage 4 (severe) N18.4 [facility] [id number] [place] [address] Dec, Essential hypertension I10 [facility] [id number] [place] [address] November, Type 2 diabetes mellitus with other diabetic kidney complication E11.29 [facility] [id number] [place] [address] November, Chronic pain syndrome G89.4 [facility] [address], [place] [address] November, [facility] [id number] [place] [address] November, [facility] [id number] [place] [address] November, [facility] [address] [place] [address] Oct, Type 2 diabetes mellitus with other diabetic kidney complication E11.29 [place] [address], [place] [address] Oct, Primary insomnia F51.01 [facility] [id number] [id number] Oct, Bilateral lower extremity edema R60.0 [place] [address] [place] [address] Oct, [place] [address] [place] [address] Sep, Type 2 diabetes mellitus with other diabetic kidney complication E11.29 and Chronic obstructive pulmonary disease, unspecified COPD type J44.9 [place] [address] [place] [address] 15 Aug, 2017 Type 2 diabetes mellitus with other diabetic kidney complication E11.29 [address] [place] [address] 12 Aug, 2017 Gastroesophageal reflux disease without esophagitis K21.9 ; halfway current use of anticoagulant Z79.01 ; Chronic pain syndrome G89.4 ; Essential hypertension I10 and Type 2 diabetes mellitus with other diabetic kidney complication E11.29 [place] [address], [place] [address] 08 Aug, 2017 Chronic pain syndrome G89.4 [place] [address], [place] [address] Aug, Type 2 diabetes mellitus with other diabetic kidney complication E11.29 [facility] [address], [place] [address] Jul, Diabetic polyneuropathy associated with type 2 diabetes mellitus E11.42 [place] [address], [place] [address] Jul, Primary insomnia F51.01 [facility] [address], [place] [address] Jul, [place] [address], [place] [address] Jul, Type 2 diabetes mellitus with other diabetic kidney complication E11.29 and Chronic obstructive pulmonary disease, unspecified COPD type J44.9 [place] [address], [place] [address] 08 Jul, 2017 Type 2 diabetes mellitus with other diabetic kidney complication E11.29 [facility] [facility] [id number] [place] [address] Jun, Type 2 diabetes mellitus with other diabetic kidney complication E11.29 [facility] [id number] [place] [address] 27 Jun, 2017 [place] [id number] [place] [address] Jun, Chronic obstructive pulmonary disease, unspecified COPD type J44.9 [place] [id number] [place] [address] May, Type 2 diabetes mellitus with other diabetic kidney complication E11.29 [place] [address], [place] [address] May, 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 and Essential hypertension I10 [place] [id number] [place] [address] May, Anemia in other chronic diseases classified elsewhere D63.8 ; Chronic obstructive pulmonary disease, unspecified COPD type J44.9 ; Oxygen desaturation during sleep G47.34 ; Sleep apnea in adult G47.33 and Supplemental oxygen dependent Z99.81 [address] [place] [address] May, Type 2 diabetes mellitus with other [...] legs R60.0 and Supplemental oxygen dependent Z99.81 [place] [address] [address] May, [place] [id number] [place] [address] May, Essential hypertension I10 and Gastroesophageal reflux disease without esophagitis K21.9 [place] [address] [address] May, [place] [address] [address] May, Type 2 diabetes mellitus with other diabetic kidney complication E11.29 and halfway current use of anticoagulant Z79.01 [place] [id number] [place] [address] Apr, Chronic pain syndrome G89.4 and Essential hypertension I10 [place] [facility] [id number] [place] [address] Apr, Type 2 diabetes mellitus with other diabetic kidney complication E11.29 [place] [id number] [place] [address] Apr, Type 2 diabetes mellitus with other diabetic kidney complication E11.29 [place] [id number] [place] [address] Apr, Essential hypertension I10 [place] [id number] [place] [address] Apr, Gastroesophageal reflux disease without esophagitis K21.9 [place] [id number] [place] [address] Apr, Type 2 diabetes mellitus with other diabetic kidney complication E11.29 [place] [id number] [place] [address] Apr, Type 2 diabetes mellitus with other diabetic kidney complication E11.29 and 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 [facility] [address] [place] [address] 27 Mar, 2017 Encounter for immunization Z23 and Preoperative examination Z01.818 [facility] [id number] [place] [address] Mar, [facility] [id number] [place] [address] Mar, Type 2 diabetes mellitus with other diabetic kidney complication E11.29 [place] [id number] [place] [address] 08 Mar, 2017 Type 2 diabetes mellitus with other diabetic kidney complication E11.29 [place] [id number] [place] [address] Mar, Gastroesophageal reflux disease without esophagitis K21.9 [place] [id number] [place] [address] Mar, Essential hypertension I10 [place] [id number] [place] [address] Feb, 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 [facility] [id number] [place] [address] Feb, Type 2 diabetes mellitus with other diabetic kidney complication E11.29 [facility] [id number] [place] [address] Feb, Type 2 diabetes mellitus with other diabetic kidney complication E11.29 [place] [id number] [place] [address] Feb, Type 2 diabetes mellitus with other diabetic kidney complication E11.29 [place] [id number] [place] [address] Feb, Gastroesophageal reflux disease without esophagitis K21.9 [facility] [id number] [place] [address] Feb, Type 2 diabetes mellitus with other diabetic kidney complication E11.29 [facility] [address], [place] [address] Feb, halfway current use of anticoagulant Z79.01 [facility] [address], [place] [address] Jan, Type 2 diabetes mellitus with other diabetic kidney complication E11.29 [facility] [address], [place] [address] Jan, Type 2 diabetes mellitus with other diabetic kidney complication E11.29 [facility] [address], [place] [address] Jan, Chronic pain syndrome G89.4 [facility] [address], [place] [address] Jan, [facility] [id number], [place] [address] Jan, [facility] [address], [place] [address] Jan, [facility] [id number] [place] [address] Jan, [facility] [address], [place] [address] Jan, Primary insomnia F51.01 ; Type 2 diabetes mellitus with other diabetic kidney complication E11.29 ; Chronic pain syndrome G89.4 and Essential hypertension I10 [facility] [address], [place] [address] Jan, Primary insomnia F51.01 [facility] [address], [place] [address] Jan, Type 2 diabetes mellitus with other diabetic kidney complication E11.29 [facility] [address], [place] [address] Jan, [facility] [id number] [place] [address] Jan, Chronic obstructive pulmonary disease, unspecified COPD type J44.9 [facility] [id number] [place] [address] Jan, Essential hypertension I10 ; Type 2 diabetes mellitus with other diabetic kidney complication E11.29 ; Chronic obstructive pulmonary disease, unspecified COPD type J44.9 ; Chronic kidney disease, stage 4 (severe) N18.4 ; Right carpal tunnel syndrome G56.01 ; 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 ; halfway (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 and Diabetic polyneuropathy associated with type 2 diabetes mellitus E11.42 [place] [id number] [place] [address] Jan, Gastroesophageal reflux disease without esophagitis K21.9 [place] [id number] [place] [address] Dec, [facility] [id number] [place] [address] Dec, [facility] [id number] [place] [address] Dec, halfway current use of anticoagulant Z79.01 ; Chronic pain syndrome G89.4 and Essential hypertension I10 [facility] [id number] [place] [address] Dec, [facility] [id number] [place] [address] Dec, Type 2 diabetes mellitus with other diabetic kidney complication E11.29 [facility] [address], [place] [address] Dec, [facility] [id number] [place] [address] Dec, Gastroesophageal reflux disease without esophagitis K21.9 [facility] [id number] [place] [address] November, Type 2 diabetes mellitus with other diabetic kidney complication E11.29 [facility] [address], [place] [address] November, [facility] [id number] [place] [address] November, Type 2 diabetes mellitus with other diabetic kidney complication E11.29 [facility] [id number] [place] [address] November, [facility] [id number] [place] [address] November, Type 2 diabetes mellitus with other diabetic kidney complication E11.29 [facility] [id number] [place] [address] November, [facility] [id number] [place] [address] Oct, Essential hypertension I10 [facility] [id number] [place] [address] Oct, Psoriasis of scalp L40.9 [facility] [id number] [place] [address] Oct, Essential hypertension I10 and Chronic pain syndrome G89.4 [facility] [address], [place] [address] Oct, [facility] [address], [place] [address] Sep, Type 2 diabetes mellitus with other diabetic kidney complication E11.29 [facility] [address], [place] [address] Sep, [facility] [id number] [place] [address] Sep, Type 2 diabetes mellitus with other diabetic kidney complication E11.29 [facility] [address], [place] [address] 20 Mar, 2017 Type 2 diabetes mellitus with other diabetic kidney complication E11.29 [place] [id number] [place] [address] 09 Sep, 2017 Type 2 diabetes mellitus [...] and Psoriasis of scalp L40.9 [place] [id number] [place] [address] Sep, [address] [address] Aug, Essential hypertension I10 [place] [address] [address] Aug, History of DVT (deep vein thrombosis) Z86.718 [place] [id number] [place] [address] Aug, [place] [id number] [place] [address] Jul, [place] [id number] [place] [address] Jul, [place] [id number] [place] [address] Jul, halfway current use of anticoagulant Z79.01 ; Chronic pain syndrome G89.4 and Chronic kidney disease, stage 4 (severe) N18.4 [place] [id number] [place] [address] Jul, [place] [address] [place] [address] Jul, [place] [address] [place] [address] Jul, [place] [id number] [place] [address] Jul, [place] [id number] [place] [address] Jul, [place] [id number] [place] [address] Jul, Type 2 diabetes mellitus with other diabetic kidney complication E11.29 [place] [id number] [place] [address] Jul, History of DVT (deep vein thrombosis) Z86.718 [place] [id number] [place] [address] Jun, [place] [id number] [place] [address] Jun, History of DVT (deep vein thrombosis) Z86.718 [place] [id number] [place] [address] 15 Jun, 2016 Post traumatic stress disorder (PTSD) F43.10 [place] [id number] [place] [address] 07 Jun, 2016 Type 2 diabetes mellitus [...] M79.641 and Right wrist pain M25.531 [facility] [id number] [place] [address] May, [facility] [id number] [place] [address] May, [facility] [address] [address] May, [facility] [id number] [place] [address] May, [facility] [id number] [place] [address] May, Anemia in other chronic diseases classified elsewhere D63.8 [facility] [address] [address] May, [facility] [id number] [place] [address] Apr, [facility] [id number] [place] [address] 27 Mar, 2016 Dermatofibroma D23.9 [facility] [id number] [place] [address] 20 Mar, 2016 [facility] [id number] [place] [address] 14 Mar, 2016 Chronic pain syndrome G89.4 [facility] [id number] [place] [address] 09 Mar, 2016 [facility] [id number] [place] [id number] 07 Mar, 2016 [facility] [id number] [place] [id number] 06 Mar, 2016 [facility] [address] [address] Feb, [facility] [id number] [phone] Feb, [facility] [id number] [address] Feb, [facility] [id number] [place] [id number] Feb, [facility] [id number] [place] [id number] Feb, [facility] [id number] [place] [id number] Feb, [facility] [id number] [place] [id number] Feb, Type 2 diabetes mellitus with other [...] failure, chronic, stage 4 (severe) N18.4 [facility] [id number] [address] Feb, Skin tags, multiple acquired L91.8 [facility] [id number] [place] [id number] Jan, [facility] [id number] [id number] Jan, Dental examination Z01.20 [facility] [address] [place] [id number] [place] [address] Jan, [facility] [address] [place], [place] [id number] [place] [address] Jan, Type 2 diabetes mellitus with other [...] Renal failure, chronic, stage 4 (severe) N18.4 [id number] [place] [address] Dec, Diabetes type 2, uncontrolled E11.65 [place] [id number] [place] [address] Dec, [place] [id number] [place] [address] Dec, Type 2 diabetes mellitus with other [...] F51.01 and Depression, unspecified depression type F32.9 [facility] [address] [id number], [place] [id number] Dec, Dental caries K02.9 [facility] [id number] [place] [address] [id number] Dec, [facility] [address] [id number] [place] [id number] Dec, Dental examination Z01.20 [facility] [address] [id number] [place] [address] November, Dental examination Z01.20 and Dental caries K02.9 [facility] [address] [id number][place] [id number] Oct, [facility] [id number] [place] [address] [id number] Oct, [facility] [address] [id number], [place] [id number] Sep, [facility] [address] [id number] [place] [address] [id number] Sep, [facility] [address] [id number] [place] [address] [id number] Sep, [facility] [address] [id number] [place] [address] [id number] Sep, Other chronic pain 338.29 [facility] [address] [id number], [place] [id number] Aug, Diabetes type 2, uncontrolled E11.65 and Morbid obesity due to excess calories E66.01 [facility] [address] [id number], [place] [id number] Aug, Hair loss L65.9 [facility] [address] [id number], [place] [id number] Aug, [facility] [address] [id number][place] [id number] Jul, [facility] [address] [id number][place] [id number] Jul, [facility] [address] [id number] [place] [place] [address] [id number] Jun, [facility] [address] [id number] [place] [address] [id number] Jun, Hair loss L65.9 and Disorder of the skin and subcutaneous tissue, unspecified L98.9 [facility] [place] [address] [id number] May, Type 2 diabetes mellitus with other diabetic kidney complication E11.29 ; Type 2 diabetes mellitus with hyperglycemia E11.65 ; Morbid obesity due to excess calories E66.01 and Essential hypertension I10 [place] [id number] [place] [address] [id number] May, Diabetes type 2, uncontrolled E11.65 ; Encounter for immunization Z23 and Morbid obesity due to excess calories E66.01 [place] [id number] [place] [address] [id number] May, [facility] [address] [address] Apr, [address] [id number] Apr, Hyperglycemia R73.[address] [id number] Apr, [address] [id number] Apr, Depression F32.9 ; Encounter for immunization Z23 ; Hyperglycemia R73.9 and Anemia in other chronic diseases classified elsewhere D63.8 [facility] [place] [address] [place] [address] [id number] Mar, [address] [place] [address] [id number] Feb, Positive occult stool blood test 792.1 [place] [id number] [place] [address] [id number] Feb, Depression 311 ; Other chronic pain 338.29 and Diabetes with renal manifestations, type II or unspecified type, not stated as uncontrolled 250.40 [facility] [id number] [place] [address] Feb, Occult blood in stools 792.[address] [place] [address] [id number] Feb, Anemia 285.9 ; Occult blood positive stool 792.1 ; Unspecified essential hypertension 401.9 and Other chronic pain 338.29 [facility] [id number], [place] [id number] Feb, [facility] [id number] [place] [address] [id number] Feb, Anemia 285.9 [facility] [id number], [place] [id number] Feb, [facility] [id number] [place] [address] [id number] Feb, [facility] [id number] [place] [address] [id number] Feb, Diabetes with renal manifestations, type II or unspecified type, not stated as uncontrolled 250.40 ; Other chronic pain 338.29 ; Unspecified essential hypertension 401.9 ; Anemia 285.9 and Depression 311 [facility] [id number] [place] [address] [id number] Jan, [facility] [id number] [place] [address] [id number] Jan, Anemia 285.9 and Follow up V67.9 [facility] [id number], [place] [id number] Jan, [facility] [id number] [place] [address] [id number] Jan, [facility] [id number] [place] [address] [id number] Jan, [facility] [id number] [place] [address] [id number] Dec, [facility] [address]00565100[place] [address] Oct, [facility] [id number] [place] [address] Oct, [facility] [id number] [place] [address] Sep, [facility] [address] [id number], [place] [id number] Sep, [facility] [id number] [place] [address] Sep, [facility] [place] [address] [id number], [place] [id number] Aug, [facility] [place] [facility] [address] [facility] [id number], [place] [address] Aug, [facility] [place] [facility] [address] [facility] [id number][place] [address] Aug, [facility] [place] [address] [id number], [place] [id number] Aug, [facility] [place] [facility] [address] [facility] [id number] [place] [address] Aug, [facility] [place] [facility] [address] [id number], [place] [address] Aug, [facility] [place] [address] [id number], [place] [id number] Aug, [facility] [place] [facility] [address]00565100[place], [place] [address] Aug, [facility] [place] [address] [facility] [id number], [place] [id number] Jul, [facility] [place] [facility] [address]00565100[place], [place] [address] Jul, [facility] [place] [facility] [address] [id number], [place] [address] Jul, [facility] [address] [id number], [place] [id number] Jul, [facility] [place] [facility] [address] [facility] [id number], [place] [address] Jul, [facility] [place] [address] [facility] [id number], [place] [id number] Jul, [facility] [place] [facility] [address] [facility] [id number], [place] [address] Jul, [facility] [address] [id number], [place] [id number] Jun, [facility] [place] [address] [facility] [id number], [place] [id number] Jun, [facility] [place] [facility] [address] [facility] [id number] [place] [address] Jun, [facility] [place] [facility] [address] [facility] [id number] [place] [address] Jun, [facility] [place] [address] [facility] [id number], [place] [id number] Jun, [facility] [place] [facility] [address] [facility] [id number], [place] [address] Jun, [facility] [place] [address] [facility] [id number], [place] [id number] May, [facility] [place] [facility] [address] [id number], [place] [address] May, [facility] [place] [facility] [address]00565100[place], [place] [address] May, [facility] [place] [address] [facility] [id number], [place] [id number] Apr, [facility] [place] [facility] [address] [facility] [id number], [place] [address] Apr, [facility] [place] [address] [facility] [id number], [place] 039894064 Apr, [facility] [place] [address] [facility] [id number], [place] 095671854 Apr, [facility] [place] [facility] [address] [facility] [id number], [place] [address] Apr, [facility] [place] [facility] [address] [facility] [id number][place] [address] Apr, [facility] [place] [address] [facility] [id number], [place] [id number] Mar, [facility] [place] [facility] [address] [facility] [id number], [place] [address] Mar, [facility] [place] [address] [facility] [id number], [place] 112571779 Mar, [facility] [place] [facility] [address] [id number] [place] [address] Mar, [facility] [place] [address] [id number] [place] [id number] Mar, [facility] [place] [facility] [address] [facility] [id number] [place] [address] Mar, [facility] [place] [address] [id number] [place] [id number] Mar, [facility] [place] [facility] [address] [id number] [place] [address] Mar, [facility] [place] [address] [id number] [place] [id number] Mar, [facility] [place] [facility] [address] [facility] [id number] [place] [address] Mar, [facility] [place] [address] [facility] [id number] [place] [id number] Feb, [facility] [place] [facility] [address] [facility] [id number][place] [address] Feb, [facility] [place] [address] [facility] [id number], [place] 746186311 Jan, [facility] [place] [facility] [address] [facility] [id number][place] [address] Jan, [facility] [place] [address] [facility] [id number] [place] [id number] Jan, [facility] [place] [facility] [address] [facility] [id number], [place] [address] Jan, [facility] [place] [address] [facility] [id number], [place] 907089486 Jan, [facility] [place] [facility] [address] [facility] [id number] [place] [address] Jan, [facility] [place] [facility] [address] [facility] [id number], [place] [address] Dec, [facility] [place] [facility] [address] [facility] [id number], [place] [address] Dec, [facility] [place] [address] [id number] [place] [id number] November, [facility] [place] [facility] [address] [id number] [place] [address] November, [facility] [place] [address] [id number] [place] [id number] November, [facility] [place] [facility] [address] [id number] [place] [address] November, [facility] [place] [address] [id number] [place] [id number] Oct, [facility] [place] [facility] [address] [id number] [place] [address] Oct, [facility] [place] [facility] [address] [facility] [id number] [place] [address] Oct, [facility] [place] [facility] [address] [facility] [id number] [place] [address] Oct, [facility] [place] [facility] [address] [id number] [place] [address] Oct, [facility] [place] [facility] [address] [facility] [id number] [place] [address] Oct, [facility] [place] [address] [id number] [place] 723896903 Sep, [facility] [place] [address] [id number] [place] 389[address]39[address] Sep, [facility] [place] [facility] [address] [id number] [place] [address] Sep, [facility] [place] [facility] [address] [id number] [place] [address] Sep, [facility] [place] [address] [id number] [place] [id number] Sep, [facility] [place] [facility] [address] [facility] [id number] [place] [address] Sep, [facility] [place] [facility] [address] [facility] [id number], [place] [address] Aug, [facility] [place] [facility] [address] [facility] [id number], [place] [address] Aug, [facility] [place] [address] [facility] [id number], [place] 746706152 Aug, [facility] [place] [address] [facility] [id number] [place] 029369312 Aug, [facility] [place] [facility] [address] [facility] [id number], [place] [address] Aug, [facility] [place] [address] [facility] [id number] [place] 417[address]25[address] Aug, [facility] [place] [facility] [address]00565100[place], [place] [address] Aug, [facility] [place] [address] [id number], [place] [id number] Aug, [facility] [place] [facility] [address]00565100[place], [place] [address] Aug, [facility] [place] [address] [facility] [id number], [place] [id number] Aug, [facility] [place] [facility] [address]00565100[place], [place] [address] Aug, [facility] [place] [address] [id number], [place] 917151002 Aug, [facility] [place] [facility] [address]00565100[place], [place] [address] Aug, [facility] [place] [facility] [address] [facility] [id number], [place] [address] Jul, [facility] [place] [address] [facility] [id number], [place] 764019874 Jun, [facility] [place] [facility] [address] [id number], [place] [address] Jun, [facility] [place] [facility] [address]00565100[place], [place] [address] Jun, [facility] [place] [facility] [address] [id number] [place] [address] Jun, [facility] [place] [address] [facility] [id number], [place] 445309744 Jun, [facility] [place] [facility] [address] [id number] [address] Jun, [facility] [place] [facility] [address] [facility] [id number][place] [address] Jun, [facility] [place] [address] [facility] [id number] [place] 648275871 Jun, [facility] [place] [facility] [address] [facility] [id number], [place] [address] Jun, [facility] [place] [facility] [address] [id number], [place] [address] May, [facility] [place] [address] [id number], [place] 713033565 May, [facility] [place] [facility] [address] [id number], [place] [address] May, [facility] [place] [facility] [address] [id number], [place] [address] May, [facility] [place] [facility] [address] [id number], [place] [address] May, [facility] [place] [facility] [address] [facility] [id number], [place] [address] May, [facility] [place] [address] [facility] [id number], [place] 304352502 May, [facility] [place] [facility] [address] [facility] [id number], [place] [address] May, [facility] [place] [address] [facility] [id number], [place] 187143791 May, [facility] [place] [facility] [address] [facility] [id number], [place] [address] May, [facility] [place] [address] [facility] [id number], [place] 117749071 Apr, [facility] [place] [facility] [address] [facility] [id number], [place] [address] Apr, [facility] [place] [facility] [address] [facility] [id number], [place] [address] Apr, [facility] [place] [address]00565[address], [place] [address]25 Apr, [facility] [place] [facility] [address] [facility] [id number], [place] [address] Apr, [facility] [place] [facility] [address]00565100[place], [place] [address] Apr, [facility] [place] [id number], [place] 739344906 Apr, [facility] [place] [facility] [address]00565100[place], [place] [address] Apr, [facility] [place] [facility] [address] [facility] [id number], [place] [address] Apr, [facility] [place] [facility] [address]00565100[place], [place] [address] Apr, [facility] [place] [id number], [place] 317928775 Apr, [facility] [place] [facility] [address] [facility] [id number], [place] [address] Apr, [facility] [place] [id number], [place] 802428272 Apr, [facility] [place] [facility] [address] [facility] [id number], [place] [address] Apr, [facility] [place] [address] [facility] [id number], [place] 072324140 Apr, [facility] [place] [facility] [address]00565100[place], [place] [address] Apr, [facility] [place] [facility] [address] [facility] [id number][place] [address] Apr, [facility] [address] [facility] [id number], [place] [address] Apr, [facility] [place] [address] [id number], [place] 682258734 Apr, [facility] [address] [facility] [id number], [place] [address] Mar, [facility] [address] [facility] [id number], [place] [address] Mar, [facility] [place] [address] [id number] [place] [address]253660[address] Mar, [facility] [address] [id number] [place] 825517364 Mar, [facility] [address] [id number] [place] [id number] Mar, [facility] [address] [id number] [place] 688535104 Feb, [facility] [address] [id number] [place] 112064832 Feb, [facility] [address] [id number] [place] [address] Feb, [facility] [address] [facility] [id number], [place] [address] Feb, [facility] [address] [id number], [place] 108292342 Feb, [facility] [address] [id number] [place] [id number] Feb, [facility] [address] [id number] [place] 2758[address] Feb, [facility] [address] [id number] [place] 717873098 Feb, [facility] [place] [address] [id number] [place] 4770[address] Feb, [facility] [place] [address] [id number] [place] 7433[address] Jan, [facility] [place] [address] [id number] [place] [address] Jan, [facility] [place] [address] [id number] [place] 40[place] Jan, [facility] [place] [address] [id number] [place] 8[place]19909 Jan, [facility] [place] [address] [id number] [place] 976443961 Jan, [facility] [address]00565100[place], [place] [address] Jan, [facility] [place] [address] [id number] [place] 738323701 Jan, [facility] [place] [address] [id number] [place] 510776830 Jan, [facility] [place] [address] [id number] [place] 363252083 Dec, [facility] [place] [address] [id number] [place] 136196548 November, [facility] [place] [address] [id number] [place] 634403118 November, [facility] [place] [address] [id number] [place] 343501040 November, [facility] [place] [address] [id number] [place] [id number] November, [facility] [place] [address] [id number] [place] [id number] November, [facility] [place] [address] [id number] [place] [id number] November, [facility] [place] [address] [id number] [place] [id number] Jul, [facility] [place] [address] [id number] [place] [id number] Jul, [facility] [place] [address] [id number] [place] [id number] Jul, [facility] [place] [address] [id number] [place] [id number] Jun, [facility] [id number] [address] Jun, [facility] [place] [address] [id number][place] [id number] May, [facility] [place] [facility] [address] [facility] [id number], [place] [address] May, [facility] [place] [address] [id number][place] [id number] May, [facility] [place] [facility] [address] [facility] [id number], [place] [address] May, [facility] [place] [address] [id number][place] [id number] May, [facility] [place] [facility] [address] [facility] [id number], [place] [address] May, [facility] [place] [address] [facility] [id number][place] [id number] Apr, [facility] [place] [facility] [id number], [place] [address] Apr, [facility] [place] [facility] [address] [facility] [id number], [place] [address] 18 Apr, 2012 [facility] [place] [address] [id number], [place] [id number] Apr, [facility] [place] [address] [id number], [place] [id number] Apr, [facility] [place] [facility] [address] [facility] [id number], [place] [address] Apr, [facility] [place] [facility] [address] [facility] [id number], [place] [address] Apr, [facility] [place] [address] [id number], [place] [id number] Apr, [facility] [place] [facility] [address] [facility] [id number], [place] [address] 10 Apr, 2012 [facility] [place] [address] [id number], [place] [id number] 09 Apr, 2012 [facility] [place] [address] [id number] [place] [id number] Apr, [facility] [place] [address] [id number] [place] [id number] Mar, [facility] [place] [address] [id number] [place] [id number] Feb, [facility] [place] [address] [id number] [place] [id number] Jan, [facility] [place] [address] [id number] [place] [address] Dec, [facility] [place] [address] [id number] [place] [id number] Dec, [facility] [place] [address] [id number] [place] [id number] Dec, [facility] [place] [address] [id number] [place] [id number] Dec, [facility] [place] [address] [id number] [place] [id number] Dec, [facility] [place] [address] [id number] [place] [id number] November, [facility] [place] [address] [id number] [place] [id number] November, [facility] [place] [address] [id number] [place] [id number] November, [facility] [address] [facility] [id number], [place] [address] November, [facility] [place] [address] [id number] [place] [id number] November, [facility] [place] [address] [id number] [place] 8598[address] November, [facility] [place] [address] [id number] [place] [id number] Oct, [facility] [place] [address] [id number] [place] [id number] Oct, [facility] [place] [address] [id number] [place] [id number] Oct, [facility] [place] [address] [id number] [place] [id number] Oct, [facility] [place] [address] [id number] [place] [id number] Oct, [facility] [place] [address] [id number] [place] [address] Oct, [facility] [place] [address] [id number] [place] [id number] Sep, [facility] [place] [address] [id number] [place] [id number] Aug, [facility] [place] [address] [id number] [place] [id number] Aug, [facility] [place] [address] [id number] [place] [id number] Jul, [facility] [place] [facility] [address] [facility] [id number], [place] [address] Jun, [facility] [place] [facility] [address] [id number], [place] [address] Jun, [facility] [place] [facility] [id number], [place] [address] Jun, [facility] [place] [facility] [id number], [place] [address] Jun, [facility] [place] [facility] [id number], [place] [address] May, [facility] [place] [facility] [id number], [place] [address] May, [facility] [place] [facility] [address] [id number], [place] [address] Apr, [facility] [place] [facility] [id number], [place] [address] Apr, [facility] [place] [facility] [id number], [place] [address] Apr, [facility] [place] [facility] [id number], [place] [address] Feb, [facility] [place] [facility] [address] [id number] [address] 15 Aug, 2010 [facility] [address] [id number] [place] [address] 18 Jul, 2010 [facility] [facility] [address] [id number] [place] [address] 30 Jun, 2010 [facility] [address] [id number] [place] [address] 29 May, 2010 [facility] [place] [facility] [address] [id number] [place] [address] May, [facility] [address] [id number] [place] [address] May, [facility] [address] [facility] [id number] [place] [address] May, [facility] [address] [facility] [id number] [place] [address] May, [facility] [address] [id number] [place] [address] 16 Aug, 2009 [facility] [address] [facility] [id number] [place] [address] Jun, [facility] [address] [facility] [id number] [place] [address] Jun, [facility] [place] [facility] [address] [facility] [id number] [place] [address] Jun, [facility] [place] [facility] [address] [id number] [place] [address] 24 May, 2009 [facility] [place] [facility] [address] [id number] [place] [address] 28 Apr, 2009 [facility] [place] [facility] [address] [facility] [id number] [place] [address] Apr, [facility] [place] [facility] [address] [facility] [id number] [place] [address] Apr, [facility] [address] [facility] [id number] [address] Jan, [facility] [address] [facility] [id number], [place] [address] Oct, [facility] [address] [facility] [id number], [place] [address] May, [facility] [address] [facility] [id number], [place] [address] May, IMMUNIZATIONS No Known Immunizations SOCIAL HISTORY Never Assessed REASON FOR VISIT EMR-[facility] [place] PLAN OF CARE VITAL SIGNS [...] Dialysis Ruthy Reveles 2012 -Dr. Simon now [facility] Medical History Colonoscopy (polyps 2 ) and EGD (lesions) fixed Dr. Wlifred Reveles July Medical History Recurrent Blood Clots [...]
--- OUTSIDE RECORDS SUMMARY | 2018-12-28 17:46 | XMS REPORT ---
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 Active 062306006 Problem Chronic pain syndrome G89.4 Active 050071441 Problem Sleep apnea in adult G47.33 Active 45989777 Problem Diabetic polyneuropathy associated with type 2 diabetes mellitus E11.42 Active 41753763 Problem Primary insomnia F51.01 Active 6686249 Problem Chronic obstructive pulmonary disease, unspecified COPD type J44.9 Active 34420815 Problem Right carpal tunnel syndrome G56.01 Active 494398029796033 Problem Gastroesophageal reflux disease without esophagitis K21.9 Active 789661863 Problem 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 Active 182550861151704 Problem Chronic kidney disease, stage 4 (severe) N18.4 Active 594072533 Problem Type 2 diabetes mellitus with hyperglycemia E11.65 Active 568894318515300 Problem Psoriasis of scalp L40.9 Active 486628685 Problem Carpal tunnel syndrome, bilateral G56.03 Active 90231320990412939 Problem Depression, unspecified depression type F32.9 Active 33470507 Problem Type 2 diabetes mellitus with other diabetic kidney complication E11.29 Active 789049450 Problem Fibromyalgia M79.7 Active 608267762 Problem Oxygen desaturation during sleep G47.34 Active 037333536 Problem Anemia in other chronic diseases classified elsewhere D63.8 Active 168015533 Problem History of DVT (deep vein thrombosis) Z86.718 Active 480127657 Problem Paresthesia of right upper extremity R20.2 Active 27085872 Problem nursing home 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 Active 612098742 Problem Supplemental oxygen dependent Z99.81 Active 363718337638 Problem Bilateral lower extremity edema R60.0 Active 052160055 ALLERGIES No Information ENCOUNTERS Encounter Location Date Diagnosis [facility] [address], [place] [address] Apr, [facility] [address], [place] [address] Feb, [facility] [address] [address] Feb, [facility] [address], [place] [address] Jan, [facility] [address], [place] [address] Jan, [facility] [address] [address] Jan, [address] [id number] Jan, [facility] [address], [place] [address] Jan, [facility] [address], [place] [address] Jan, [facility] [address], [place] [address] Jan, Essential hypertension I10 [facility] [address], [place] [address] Jan, Chronic obstructive pulmonary disease, unspecified COPD type J44.9 [facility] [id number], [place] [address] Jan, [facility] [id number], [place] [address] Jan, [facility] [id number], [place] [address] Jan, Type 2 diabetes mellitus with other diabetic kidney complication E11.29 ; Anemia in other chronic diseases classified elsewhere D63.8 ; Chronic obstructive pulmonary disease, unspecified COPD type J44.9 and BMI 60.0-69.9, adult Z68.44 [facility] [address] [address] Jan, [facility] [id number] [place] [address] Jan, [facility] [id number] [place] [id number] Jan, [facility] [id number] [place] [id number] Dec, [facility] [id number] [place] [id number] Dec, [facility] [address] [place] [id number] Dec, Essential hypertension I10 ; Type 2 diabetes mellitus with other diabetic kidney complication E11.29 ; Depression, unspecified depression type F32.9 ; Supplemental oxygen dependent Z99.81 ; Chronic pain syndrome G89.4 ; Fibromyalgia M79.7 ; Carpal tunnel syndrome, bilateral G56.03 and Chronic kidney disease, stage 4 (severe) N18.4 [facility] [id number] [place] [address] Dec, Essential hypertension I10 [facility] [id number] [place] [address] November, Type 2 diabetes mellitus with other diabetic kidney complication E11.29 [facility] [id number] [place] [address] November, Chronic pain syndrome G89.4 [facility] [address], [place] [address] November, [facility] [id number] [place] [address] November, [facility] [id number] [place] [address] November, [facility] [address] [place] [address] Oct, Type 2 diabetes mellitus with other diabetic kidney complication E11.29 [place] [address], [place] [address] Oct, Primary insomnia F51.01 [facility] [id number] [place] [id number] Oct, Bilateral lower extremity edema R60.0 [facility] [facility] [address] [place] [address] Oct, [facility] [address] [place] [address] Sep, Type 2 diabetes mellitus with other diabetic kidney complication E11.29 and Chronic obstructive pulmonary disease, unspecified COPD type J44.9 [facility] [facility] [address] [place] [address] 15 Aug, 2017 Type 2 diabetes mellitus with other diabetic kidney complication E11.29 [address] [place] [address] 12 Aug, 2017 Gastroesophageal reflux disease without esophagitis K21.9 ; nursing home current use of anticoagulant Z79.01 ; Chronic pain syndrome G89.4 ; Essential hypertension I10 and Type 2 diabetes mellitus with other diabetic kidney complication E11.29 [facility] [facility] [address], [place] [address] 08 Aug, 2017 Chronic pain syndrome G89.4 [facility] [facility] [address], [place] [address] Aug, Type 2 diabetes mellitus with other diabetic kidney complication E11.29 [facility] [facility] [address], [place] [address] Jul, Diabetic polyneuropathy associated with type 2 diabetes mellitus E11.42 [facility] [facility] [address], [place] [address] Jul, Primary insomnia F51.01 [facility] [address], [place] [address] Jul, [facility] [facility] [address], [place] [address] Jul, Type 2 diabetes mellitus with other diabetic kidney complication E11.29 and Chronic obstructive pulmonary disease, unspecified COPD type J44.9 [facility] [address], [place] [address] 08 Jul, 2017 Type 2 diabetes mellitus with other diabetic kidney complication E11.29 [facility] [id number] [place] [address] Jun, Type 2 diabetes mellitus with other diabetic kidney complication E11.29 [facility] [id number] [place] [address] 27 Jun, 2017 [facility] [id number] [place] [address] Jun, Chronic obstructive pulmonary disease, unspecified COPD type J44.9 [facility] [id number] [place] [address] May, Type 2 diabetes mellitus with other diabetic kidney complication E11.29 [facility] [address], [place] [address] May, intermediate project manager current use 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 Z79.01 and Essential hypertension I10 [facility] [id number] [place] [address] May, Anemia in other chronic diseases classified elsewhere D63.8 ; Chronic obstructive pulmonary disease, unspecified COPD type J44.9 ; Oxygen desaturation during sleep G47.34 ; Sleep apnea in adult G47.33 and Supplemental oxygen dependent Z99.81 [address] [place] [address] May, Type 2 diabetes mellitus with other diabetic kidney complication E11.29 ; Essential hypertension I10 ; Chronic pain syndrome G89.4 ; BMI 40.0- 44.9, adult Z68.41 ; Gastroesophageal reflux disease without esophagitis K21.9 ; intermediate project manager current use of anticoagulant Z79.01 ; intermediate project manager 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 ; Diabetic polyneuropathy associated with type 2 diabetes mellitus E11.42 ; Edema of both legs R60.0 and Supplemental oxygen dependent Z99.81 [place] [facility] [address] [address] May, [facility] [id number] [place] [address] May, Essential hypertension I10 and Gastroesophageal reflux disease without esophagitis K21.9 [place] [facility] [address] [address] May, [place] [address] [address] May, Type 2 diabetes mellitus with other diabetic kidney complication E11.29 and nursing home current use of anticoagulant Z79.01 [facility] [id number] [place] [address] Apr, Chronic pain syndrome G89.4 and Essential hypertension I10 [facility] [id number] [place] [address] Apr, Type 2 diabetes mellitus with other diabetic kidney complication E11.29 [facility] [id number] [place] [address] Apr, Type 2 diabetes mellitus with other diabetic kidney complication E11.29 [facility] [id number] [place] [address] Apr, Essential hypertension I10 [facility] [id number] [place] [address] Apr, Gastroesophageal reflux disease without esophagitis K21.9 [facility] [id number] [place] [address] Apr, Type 2 diabetes mellitus with other diabetic kidney complication E11.29 [facility] [id number] [place] [address] Apr, Type 2 diabetes mellitus with other diabetic kidney complication E11.29 and intermediate project manager current use of anticoagulant Z79.01 [facility] [address] [place] [address] 27 Mar, 2017 Encounter for immunization Z23 and Preoperative examination Z01.818 [facility] [id number] [place] [address] Mar, [facility] [id number] [place] [address] Mar, Type 2 diabetes mellitus with other diabetic kidney complication E11.29 [facility] [id number] [place] [address] 08 Mar, 2017 Type 2 diabetes mellitus with other diabetic kidney complication E11.29 [facility] [id number] [place] [address] Mar, Gastroesophageal reflux disease without esophagitis K21.9 [facility] [id number] [place] [address] Mar, Essential hypertension I10 [place] [facility] [id number] [place] [address] Feb, intermediate project manager current use of anticoagulant Z79.01 [facility] [id number] [place] [address] Feb, Type 2 diabetes mellitus with other diabetic kidney complication E11.29 [facility] [id number] [place] [address] Feb, Type 2 diabetes mellitus with other diabetic kidney complication E11.29 [place] [facility] [id number] [place] [address] Feb, Type 2 diabetes mellitus with other diabetic kidney complication E11.29 [facility] [id number] [place] [address] Feb, Gastroesophageal reflux disease without esophagitis K21.9 [facility] [id number] [place] [address] Feb, Type 2 diabetes mellitus with other diabetic kidney complication E11.29 [facility] [address], [place] [address] Feb, nursing home current use of anticoagulant Z79.01 [facility] [address], [place] [address] Jan, Type 2 diabetes mellitus with other diabetic kidney complication E11.29 [facility] [address], [place] [address] Jan, Type 2 diabetes mellitus with other diabetic kidney complication E11.29 [facility] [address], [place] [address] Jan, Chronic pain syndrome G89.4 [facility] [address], [place] [address] Jan, [facility] [address] [place] [address] Jan, [facility] [address], [place] [address] Jan, [facility] [address] [place] [address] Jan, [facility] [address], [place] [address] Jan, Primary insomnia F51.01 ; Type 2 diabetes mellitus with other diabetic kidney complication E11.29 ; Chronic pain syndrome G89.4 and Essential hypertension I10 [facility] [address], [place] [address] Jan, Primary insomnia F51.01 [facility] [address], [place] [address] Jan, Type 2 diabetes mellitus with other diabetic kidney complication E11.29 [facility] [address], [place] [address] Jan, [facility] [id number] [place] [address] Jan, Chronic obstructive pulmonary disease, unspecified COPD type J44.9 [facility] [id number] [place] [address] Jan, Essential hypertension I10 ; Type 2 [...] associated with type 2 diabetes mellitus E11.42 [facility] [id number] [place] [address] Jan, Gastroesophageal reflux disease without esophagitis K21.9 [place] [id number] [place] [address] Dec, [facility] [id number] [place] [address] Dec, [facility] [id number] [place] [address] Dec, nursing home current use of anticoagulant Z79.01 ; Chronic pain syndrome G89.4 and Essential hypertension I10 [facility] [id number] [place] [address] Dec, [facility] [id number] [place] [address] Dec, Type 2 diabetes mellitus with other diabetic kidney complication E11.29 [facility] [address], [place] [address] Dec, [facility] [id number] [place] [address] Dec, Gastroesophageal reflux disease without esophagitis K21.9 [facility] [id number] [place] [address] November, Type 2 diabetes mellitus with other diabetic kidney complication E11.29 [facility] [address], [place] [address] November, [facility] [id number] [place] [address] November, Type 2 diabetes mellitus with other diabetic kidney complication E11.29 [facility] [id number] [place] [address] November, [facility] [id number] [place] [address] November, Type 2 diabetes mellitus with other diabetic kidney complication E11.29 [facility] [id number] [place] [address] November, [facility] [id number] [place] [address] Oct, Essential hypertension I10 [facility] [id number] [place] [address] Oct, Psoriasis of scalp L40.9 [facility] [id number] [place] [address] Oct, Essential hypertension I10 and Chronic pain syndrome G89.4 [facility] [address] [place] [address] Oct, [facility] [address], [place] [address] Sep, Type 2 diabetes mellitus with other diabetic kidney complication E11.29 [facility] [address], [place] [address] Sep, [facility] [id number] [place] [address] Sep, Type 2 diabetes mellitus with other diabetic kidney complication E11.29 [facility] [address], [place] [address] 20 Mar, 2017 Type 2 diabetes mellitus with other diabetic kidney complication E11.29 [facility] [id number] [place] [address] 09 Sep, 2017 Type 2 diabetes mellitus with other diabetic kidney complication E11.29 ; Chronic kidney disease, stage 4 (severe) N18.4 ; Chronic obstructive pulmonary disease, unspecified COPD type J44.9 ; Iron deficiency anemia due to chronic blood loss D50.0 ; nursing home current use of anticoagulant Z79.01 ; Gastroesophageal reflux disease without esophagitis K21.9 ; Essential hypertension I10 ; Primary insomnia F51.01 ; Depression, unspecified depression type F32.9 ; Chronic pain syndrome G89.4 ; Wrist pain, right M25.531 ; Paresthesia of right upper extremity R20.2 and Psoriasis of scalp L40.9 [place] [facility] [id number] [place] [address] Sep, [address] [address] Aug, Essential hypertension I10 [facility] [facility] [address] [address] Aug, History of DVT (deep vein thrombosis) Z86.718 [facility] [id number] [place] [address] Aug, [facility] [id number] [place] [address] Jul, [facility] [id number] [place] [address] Jul, [facility] [id number] [place] [address] Jul, nursing home current use of anticoagulant Z79.01 ; Chronic pain syndrome G89.4 and Chronic kidney disease, stage 4 (severe) N18.4 [place] [id number] [place] [address] Jul, [place] [address] [place] [address] Jul, [facility] [id number] [place] [address] Jul, [facility] [id number] [place] [address] Jul, [facility] [id number] [place] [address] Jul, [facility] [id number] [place] [address] Jul, Type 2 diabetes mellitus with other diabetic kidney complication E11.29 [place] [id number] [place] [address] Jul, History of DVT (deep vein thrombosis) Z86.718 [facility] [facility] [id number] [place] [address] Jun, [facility] [id number] [place] [address] Jun, History of DVT (deep vein thrombosis) Z86.718 [place] [id number] [place] [address] 15 Jun, 2016 Post traumatic stress disorder (PTSD) F43.10 [place] [id number] [place] [address] 07 Jun, 2016 Type 2 diabetes mellitus [...] pain M79.641 and Right wrist pain M25.531 [facility] [id number] [place] [address] May, [facility] [id number] [place] [address] May, [facility] [address] [address] May, [facility] [id number] [place] [address] May, [facility] [id number] [place] [address] May, Anemia in other chronic diseases classified elsewhere D63.8 [facility] [address] [address] May, [facility] [id number] [place] [address] Apr, [facility] [id number] [place] [address] 27 Mar, 2016 Dermatofibroma D23.9 [facility] [id number] [place] [address] 20 Mar, 2016 [facility] [id number] [place] [address] 14 Mar, 2016 Chronic pain syndrome G89.4 [facility] [id number] [place] [address] 09 Mar, 2016 [facility] [id number] [place] [address] 07 Mar, 2016 [facility] [id number] [place] [address] 06 Mar, 2016 [facility] [address] [place] [address] Feb, [facility] [address], [place] [address] Feb, [facility] [address], [place] [address] Feb, [facility] [id number] [place] [address] Feb, [facility] [id number] [place] [address] Feb, [facility] [id number] [place] [address] Feb, [facility] [id number] [place] [address] Feb, Type 2 diabetes mellitus with other diabetic kidney complication E11.29 ; Diabetic polyneuropathy associated with type 2 diabetes mellitus E11.42 ; Iron deficiency anemia due to chronic blood loss D50.0 ; Chronic obstructive pulmonary disease, unspecified COPD type J44.9 ; intermediate project manager current use of 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 Z79.01 ; History of DVT (deep vein thrombosis) Z86.718 ; Chronic pain syndrome G89.4 ; Oxygen desaturation during sleep G47.34 ; Sleep apnea in adult G47.33 ; Gastroesophageal reflux disease without esophagitis K21.9 ; Essential hypertension I10 ; Primary insomnia F51.01 ; Depression, unspecified depression type F32.9 and Renal failure, chronic, stage 4 (severe) N18.4 [facility] [address], [place] [address] Feb, Skin tags, multiple acquired L91.8 [facility] [id number] [place] [address] Jan, [facility] [address] [id number] Jan, Dental examination Z01.20 [facility] [id number] [place] [address] Jan, [facility] [address] [place] [id number] [place] [address] Jan, Type 2 diabetes mellitus with other diabetic kidney complication E11.29 ; Diabetic polyneuropathy associated with type 2 diabetes mellitus E11.42 ; Iron deficiency anemia due to chronic blood loss D50.0 ; Chronic obstructive pulmonary disease, unspecified COPD type J44.9 ; intermediate project manager current use of 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 Z79.01 ; [...] Renal failure, chronic, stage 4 (severe) N18.4 [address] [place] [address] Dec, Diabetes type 2, uncontrolled E11.65 [place] [id number] [place], [place] [address] Dec, [place] [id number] [place] [address] Dec, Type 2 diabetes mellitus with other diabetic kidney complication E11.29 ; Diabetic polyneuropathy associated with type 2 diabetes mellitus E11.42 ; Iron deficiency anemia due to chronic blood loss D50.0 ; Chronic obstructive pulmonary disease, unspecified COPD type J44.9 ; intermediate project manager current use of anticoagulant Z79.01 ; History of DVT (deep vein thrombosis) Z86.718 ; Chronic pain syndrome G89.4 ; Oxygen desaturation during sleep G47.34 ; Sleep apnea in adult G47.33 ; Gastroesophageal reflux disease without esophagitis K21.9 ; Essential hypertension I10 ; Primary insomnia F51.01 and Depression, unspecified depression type F32.9 [facility] [address] [id number] [id number] Dec, Dental caries K02.9 [facility] [id number] [place] [address] [id number] Dec, [facility] [address] [id number] [place] [id number] Dec, Dental examination Z01.20 [facility] [address] [id number] [place] [id number] November, Dental examination Z01.20 and Dental caries K02.9 [facility] [address] [id number] [place] [id number] Oct, [facility] [address] [id number] [place] [address] [id number] Oct, [facility] [address] [id number] [place] [address]27[address] Sep, [facility] [address] [id number] [place] [address] [id number] Sep, [facility] [id number] [place] [address] [id number] Sep, [facility] [address] [id number] [place] [address] [id number] Sep, Other chronic pain 338.29 [facility] [address] [id number] [place] [address] Aug, Diabetes type 2, uncontrolled E11.65 and Morbid obesity due to excess calories E66.01 [facility] [address] [id number] [place] [id number] Aug, Hair loss L65.9 [facility] [address] [id number] [place] [id number] Aug, [facility] [address] [id number] [place] [id number] Jul, [facility] [address] [id number] [place] [id number] Jul, [facility] [id number] [place] [address] [id number] Jun, [facility] [address] [id number] [place] [address] [id number] Jun, Hair loss L65.9 and Disorder of the skin and subcutaneous tissue, unspecified L98.9 [id number] [place] [address] [id number] May, Type 2 diabetes mellitus with other diabetic kidney complication E11.29 ; Type 2 diabetes mellitus with hyperglycemia E11.65 ; Morbid obesity due to excess calories E66.01 and Essential hypertension I10 [place] [id number] [place] [address] [id number] May, Diabetes type 2, uncontrolled E11.65 ; Encounter for immunization Z23 and Morbid obesity due to excess calories E66.01 [place] [id number] [place] [address] [id number] May, [facility] [address] [address] Apr, [address] [id number] Apr, Hyperglycemia R73.[address] [id number] Apr, [address] [id number] Apr, Depression F32.9 ; Encounter for immunization Z23 ; Hyperglycemia R73.9 and Anemia in other chronic diseases classified elsewhere D63.8 [facility] [address] [place] [address] [id number] Mar, [address] [place] [address] [id number] Feb, Positive occult stool blood test 792.1 [place] [id number] [place] [address] [id number] Feb, Depression 311 ; Other chronic pain 338.29 and Diabetes with renal manifestations, type II or unspecified type, not stated as uncontrolled 250.40 [facility] [id number] [place] [address] Feb, Occult blood in stools 792.[address] [place] [address] [id number] Feb, Anemia 285.9 ; Occult blood positive stool 792.1 ; Unspecified essential hypertension 401.9 and Other chronic pain 338.29 [facility] [id number] [place] [id number] Feb, [facility] [id number] [place] [address] [id number] Feb, Anemia 285.9 [facility] [id number] [place] [id number] Feb, [facility] [id number] [place] [address] [id number] Feb, [facility] [id number] [place] [address] [id number] Feb, Diabetes with renal manifestations, type II or unspecified type, not stated as uncontrolled 250.40 ; Other chronic pain 338.29 ; Unspecified essential hypertension 401.9 ; Anemia 285.9 and Depression 311 [facility] [id number] [place] [address] [id number] Jan, [facility] [id number] [place] [address] [id number] Jan, Anemia 285.9 and Follow up V67.9 [facility] [id number] [place] [id number] Jan, [facility] [id number] [place] [address] [id number] Jan, [facility] [id number] [place] [address] [id number] Jan, [facility] [id number] [place] [address] [id number] Dec, [facility] [address]00565100[place], [place] [address] Oct, [facility] [id number] [place] [address] Oct, [facility] [id number] [place] [address] Sep, [facility] [address] [id number] [place] [id number] Sep, [facility] [id number] [place] [address] Sep, [facility] [address] [id number] [place] [id number] Aug, [facility] [place] [facility] [address] [facility] [id number], [place] [address] Aug, [facility] [place] [facility] [address] [facility] [id number], [place] [address] Aug, [facility] [address] [id number] [place] [id number] Aug, [facility] [place] [facility] [address] [facility] [id number] [place] [address] Aug, [facility] [place] [facility] [address] [id number], [place] [address] Aug, [facility] [address] [id number] [place] [id number] Aug, [facility] [place] [facility] [address]00565100[place], [place] [address] Aug, [facility] [place] [address] [facility] [id number] [place] [id number] Jul, [facility] [place] [facility] [address]00565100[place], [place] [address] Jul, [facility] [place] [facility] [address] [id number], [place] [address] Jul, [facility] [address] [id number] [place] [id number] Jul, [facility] [place] [facility] [address] [facility] [id number], [place] [address] Jul, [facility] [address] [facility] [id number] [place] [id number] Jul, [facility] [place] [facility] [address] [facility] [id number], [place] [address] Jul, [facility] [address] [id number] [place] [id number] Jun, [facility] [address] [facility] [id number] [place] [id number] Jun, [facility] [place] [facility] [address] [facility] [id number] [place] [address] Jun, [facility] [place] [facility] [address] [facility] [id number] [place] [address] Jun, [facility] [address] [facility] [id number] [place] [id number] Jun, [facility] [place] [facility] [address] [facility] [id number], [place] [address] Jun, [facility] [address] [facility] [id number] [place] [id number] May, [facility] [place] [facility] [address] [id number], [place] [address] May, [facility] [place] [facility] [address]00565100[place], [place] [address] May, [facility] [address] [facility] [id number] [place] [id number] Apr, [facility] [place] [facility] [address] [facility] [id number], [place] [address] Apr, [facility] [address] [facility] [id number] [place] [id number] Apr, [facility] [address] [facility] [id number] [place] 739342570 Apr, [facility] [place] [facility] [address] [facility] [id number], [place] [address] Apr, [facility] [place] [facility] [address] [facility] [id number], [place] [address] Apr, [facility] [address] [facility] [id number] [place] [id number] Mar, [facility] [place] [facility] [address] [facility] [id number], [place] [address] Mar, [facility] [address] [facility] [id number] [place] 539258851 Mar, [facility] [place] [facility] [address] [id number] [place] [address] Mar, [facility] [address] [id number] [place] [id number] Mar, [facility] [place] [facility] [address] [facility] [id number] [place] [address] Mar, [facility] [address] [id number] [place] [id number] Mar, [facility] [place] [facility] [address] [id number] [place] [address] Mar, [facility] [address] [id number] [place] [id number] Mar, [facility] [place] [facility] [address] [facility] [id number] [place] [address] Mar, [facility] [address] [facility] [id number] [place] [id number] Feb, [facility] [place] [facility] [address] [facility] [id number], [place] [address] Feb, [facility] [address] [facility] [id number] [place] [id number] Jan, [facility] [place] [facility] [address] [facility] [id number], [place] [address] Jan, [facility] [address] [facility] [id number] [place] [id number] Jan, [facility] [place] [facility] [address] [facility] [id number], [place] [address] Jan, [facility] [address] [facility] [id number] [place] [id number] Jan, [facility] [place] [facility] [address] [facility] [id number] [place] [address] Jan, [facility] [place] [facility] [address] [facility] [id number], [place] [address] Dec, [facility] [place] [facility] [address] [facility] [id number], [place] [address] Dec, [facility] [address] [id number] [place] [id number] November, [facility] [place] [facility] [address] [id number] [place] [address] November, [facility] [address] [id number] [place] [id number] November, [facility] [place] [facility] [address] [id number] [place] [address] November, [facility] [address] [id number] [place] [id number] Oct, [facility] [place] [facility] [address] [id number] [place] [address] Oct, [facility] [place] [facility] [address] [facility] [id number] [place] [address] Oct, [facility] [place] [facility] [address] [facility] [id number] [place] [address] Oct, [facility] [place] [facility] [address] [id number] [place] [address] Oct, [facility] [place] [facility] [address] [facility] [id number] [place] [address] Oct, [facility] [address] [id number] [place] 716443025 Sep, [facility] [address] [id number] [place] 075291427 Sep, [facility] [place] [facility] [address] [id number] [place] [address] Sep, [facility] [place] [facility] [address] [id number] [place] [address] Sep, [facility] [address] [id number] [place] 824190332 Sep, [facility] [place] [facility] [address] [facility] [id number] [place] [address] Sep, [facility] [place] [facility] [address] [facility] [id number], [place] [address] Aug, [facility] [place] [facility] [address] [facility] [id number], [place] [address] Aug, [facility] [address] [facility] [id number] [place] [id number] Aug, [facility] [address] [facility] [id number] [place] [id number] Aug, [facility] [place] [facility] [address] [facility] [id number], [place] [address] Aug, [facility] [address] [facility] [id number] [place] [id number] Aug, [facility] [place] [facility] [address]00565100[place], [place] [address] Aug, [facility] [address] [id number] [place] [id number] Aug, [facility] [place] [facility] [address]00565100[place], [place] [address] Aug, [facility] [address] [facility] [id number] [place] [id number] Aug, [facility] [place] [facility] [address]00565100[place], [place] [address] Aug, [facility] [address] [id number] [place] [id number] Aug, [facility] [place] [facility] [address]00565100[place], [place] [address] Aug, [facility] [place] [facility] [address] [facility] [id number], [place] [address] Jul, [facility] [address] [facility] [id number] [place] 357866457 Jun, [facility] [place] [facility] [address] [id number], [place] [address] Jun, [facility] [place] [facility] [address]00565100[place], [place] [address] Jun, [facility] [place] [facility] [address] [id number] [place] [address] Jun, [facility] [address] [facility] [id number] [place] 986150410 Jun, [facility] [place] [facility] [id number] [address] Jun, [facility] [place] [facility] [address] [facility] [id number], [place] [address] Jun, [facility] [place] [address] [facility] [id number] [place] [id number] Jun, [facility] [place] [facility] [address] [facility] [id number], [place] [address] Jun, [facility] [place] [facility] [address] [id number], [place] [address] May, [facility] [address] [id number] [place] 103976044 May, [facility] [place] [facility] [address] [id number], [place] [address] May, [facility] [place] [facility] [address] [id number], [place] [address] May, [facility] [place] [facility] [address] [id number], [place] [address] May, [facility] [place] [facility] [address] [facility] [id number], [place] [address] May, [facility] [address] [facility] [id number] [place] 863305999 May, [facility] [place] [facility] [address] [facility] [id number], [place] [address] May, [facility] [place] [address] [facility] [id number] [place] 616161396 May, [facility] [place] [facility] [address] [facility] [id number], [place] [address] May, [facility] [address] [facility] [id number] [place] 090961509 Apr, [facility] [place] [facility] [address] [facility] [id number], [place] [address] Apr, [facility] [place] [facility] [address] [facility] [id number], [place] [address] Apr, [facility] [address]00565[address] 350948504 Apr, [facility] [place] [facility] [address] [facility] [id number], [place] [address] Apr, [facility] [place] [facility] [address]65100[place], [place] [address] Apr, [facility] [place] [id number] [place] 456316064 Apr, [facility] [place] [facility] [address]65100[place], [place] [address] Apr, [facility] [place] [facility] [address] [facility] [id number], [place] [address] Apr, [facility] [place] [facility] [address]65100[place], [place] [address] Apr, [facility] [place] [id number] [place] 686149018 Apr, [facility] [place] [facility] [address] [facility] [id number], [place] [address] Apr, [facility] [place] [id number] [place] 715462339 Apr, [facility] [place] [facility] [address] [facility] [id number], [place] [address] Apr, [facility] [place] [address] [facility] [id number] [place] 130295964 Apr, [facility] [place] [facility] [address]65[address], [place] [address] Apr, [facility] [place] [facility] [address] [facility] [id number], [place] [address] Apr, [facility] [address] [facility] [id number], [place] [address] Apr, [facility] [place] [address] [id number] [place] 814574191 Apr, [facility] [address] [facility] [id number], [place] [address] Mar, [facility] [address] [facility] [id number], [place] [address] Mar, [facility] [address] [id number] [place] [id number] Mar, [facility] [address] [id number] [place] 4848[address]352 Mar, [facility] [address] [id number] [place] 968344704 Mar, [facility] [address] [id number] [place] 026861030 Feb, [facility] [address] [id number] [place] 902270748 Feb, [facility] [address] [id number] [place] 695548876 Feb, [facility] [address] [facility] [id number], [place] [address] Feb, [facility] [address] [id number] [place] 508797939 Feb, [facility] [address] [id number] [place] 415024926 Feb, [facility] [address] [id number] [place] 398897322 Feb, [facility] [address] [id number] [place] 807552124 Feb, [facility] [address] [id number] [place] 942342059 Feb, [facility] [place] [address] [id number] [place] 765465931 Jan, [facility] [place] [address] [id number] [place] 992432761 Jan, [facility] [place] [address] [id number] [place] 540032469 Jan, [facility] [place] [address] [id number] [place] 3397[place]449 Jan, [facility] [place] [address] [id number] [place] [address] Jan, [facility] [address]00565[address], [place] [address] Jan, [facility] [place] [address] [id number] [place] 603151299 Jan, [facility] [place] [address] [id number] [place] 738967727 Jan, [facility] [place] [address] [id number] [place] 355282582 Dec, [facility] [place] [address] [id number] [place] 188451756 November, [facility] [place] [address] [id number] [place] 635301779 November, [facility] [place] [address] [id number] [place] 763550424 November, [facility] [place] [address] [id number] [place] 358641798 November, [facility] [place] [address] [id number] [place] 246786897 November, [facility] [address] [id number] [place] [id number] November, [facility] [place] [address] [id number] [place] [id number] Jul, [facility] [place] [address] [id number] [place] [id number] Jul, [facility] [place] [address] [id number] [place] [id number] Jul, [facility] [place] [address] [id number] [place] [id number] Jun, [facility] [address], [place] [address] Jun, [facility] [place] [address] [id number] [place] [id number] May, [facility] [address] [facility] [id number], [place] [address] May, [facility] [place] [address] [id number] [place] [id number] May, [facility] [address] [facility] [id number], [place] [address] May, [facility] [place] [address] [id number] [place] [id number] May, [facility] [address] [facility] [id number], [place] [address] May, [facility] [place] [address] [facility] [id number] [place] [id number] Apr, [facility] [address], [place] [address] Apr, [facility] [address] [facility] [id number], [place] [address] 18 Apr, 2012 [facility] [place] [address] [id number] [place] [id number] Apr, [facility] [place] [address] [id number] [place] [id number] Apr, [facility] [address] [facility] [id number], [place] [address] Apr, [facility] [address] [facility] [id number], [place] [address] Apr, [facility] [place] [address] [id number] [place] [id number] Apr, [facility] [address] [facility] [id number], [place] [address] 10 Apr, 2012 [facility] [place] [address] [id number] [place] [id number] 09 Apr, 2012 [facility] [place] [address] [id number] [place] [id number] Apr, [facility] [place] [address] [id number] [place] [id number] Mar, [facility] [place] [address] [id number] [place] [id number] Feb, [facility] [place] [address] [id number] [place] [id number] Jan, [facility] [place] [address] [id number] [place] [id number] Dec, [facility] [place] [address] [id number] [place] [id number] Dec, [facility] [place] [address] [id number] [place] [address] Dec, [facility] [place] [address] [id number] [place] [id number] Dec, [facility] [place] [address] [id number] [place] [id number] Dec, [facility] [place] [address] [id number] [place] [id number] November, [facility] [place] [address] [id number] [place] [id number] November, [facility] [place] [address] [id number] [place] [id number] November, [facility] [address] [facility] [id number], [place] [address] November, [facility] [place] [address] [id number] [place] [id number] November, [facility] [place] [address] [id number] [place] [id number] November, [facility] [place] [address] [id number] [place] [id number] Oct, [facility] [place] [address] [id number] [place] [id number] Oct, [facility] [place] [address] [id number] [place] [id number] Oct, [facility] [place] [address] [id number] [place] [id number] Oct, [facility] [place] [address] [id number] [place] [address] Oct, [facility] [place] [address] [id number] [place] [id number] Oct, [facility] [place] [address] [id number] [place] [id number] Sep, [facility] [place] [address] [id number] [place] [id number] Aug, [facility] [place] [address] [id number] [place] [id number] Aug, [facility] [place] [address] [id number] [place] [id number] Jul, [facility] [address] [facility] [id number], [place] [address] Jun, [facility] [address] [id number], [place] [address] Jun, [facility] [id number], [place] [address] Jun, [facility] [address], [place] [address] Jun, [facility] [id number], [place] [address] May, [facility] [id number], [place] [address] May, [facility] [address] [id number] [id number] Apr, [facility] [place] [facility] [id number], [place] [address] Apr, [facility] [place] [facility] [id number], [place] [address] Apr, [facility] [place] [facility] [id number], [place] [address] Feb, [facility] [place] [facility] [address] [id number] [place] [address] 15 Aug, 2010 [facility] [address] [id number] [place] [address] 18 Jul, 2010 [facility] [place] [facility] [address] [id number] [place] [address] 30 Jun, 2010 [facility] [address] [id number] [place] [address] 29 May, 2010 [facility] [place] [facility] [address] [id number] [place] [address] May, [facility] [address] [id number] [place] [address] May, [facility] [address] [facility] [id number] [place] [address] May, [facility] [address] [facility] [id number] [place] [address] May, [facility] [address] [id number] [place] [address] 16 Aug, 2009 [facility] [address] [facility] [id number] [place] [address] Jun, [facility] [address] [facility] [id number] [place] [address] Jun, [facility] [place] [facility] [address] [facility] [id number] [place] [address] Jun, [facility] [place] [facility] [address] [id number] [place] [address] 24 May, 2009 [facility] [place] [facility] [address] [id number] [place] [address] 28 Apr, 2009 [facility] [place] [facility] [address] [facility] [id number] [place] [address] Apr, [facility] [place] [facility] [address] [facility] [id number] [place] [address] Apr, [facility] [address] [facility] [id number], [place] [address] Jan, [facility] [address] [facility] [id number], [place] [address] Oct, [facility] [address] [facility] [id number], [place] [address] May, [facility] [address] [facility] [id number], [place] [address] May, IMMUNIZATIONS No Known Immunizations SOCIAL HISTORY [...] Dialysis [facility] 2012 -Dr. Simon now [facility] Medical History Colonoscopy (polyps 2 ) [...]
--- OUTSIDE RECORDS SUMMARY | 2018-12-28 17:47 | XMS REPORT ---
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 Active 079567473 Problem Chronic pain syndrome G89.4 Active 751984295 Problem Sleep apnea in adult G47.33 Active 28518792 Problem Diabetic polyneuropathy associated with type 2 diabetes mellitus E11.42 Active 75792065 Problem Primary insomnia F51.01 Active 2387613 Problem Chronic obstructive pulmonary disease, unspecified COPD type J44.9 Active 13744195 Problem Right carpal tunnel syndrome G56.01 Active 367575926757499 Problem Gastroesophageal reflux disease without esophagitis K21.9 Active 510150729 Problem 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 Active 660647729491564 Problem Chronic kidney disease, stage 4 (severe) N18.4 Active 061812630 Problem Type 2 diabetes mellitus with hyperglycemia E11.65 Active 112334658413189 Problem Psoriasis of scalp L40.9 Active 716445317 Problem Carpal tunnel syndrome, bilateral G56.03 Active 65168776870376582 Problem Depression, unspecified depression type F32.9 Active 86980407 Problem Type 2 diabetes mellitus with other diabetic kidney complication E11.29 Active 085991002 Problem Fibromyalgia M79.7 Active 045240819 Problem Oxygen desaturation during sleep G47.34 Active 553751950 Problem Anemia in other chronic diseases classified elsewhere D63.8 Active 364195745 Problem History of DVT (deep vein thrombosis) Z86.718 Active 352608340 Problem Paresthesia of right upper extremity R20.2 Active 65050137 Problem halfway 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 Active 944984849 Problem Supplemental oxygen dependent Z99.81 Active 366897782427 Problem Bilateral lower extremity edema R60.0 Active 655833466 ALLERGIES No Information ENCOUNTERS Encounter Location Date Diagnosis [facility] [id number] [address] Apr, [facility] [id number] [address] Feb, [facility] [address] [place] [address] Feb, [facility] [id number] [address] Jan, [facility] [address] [address] Jan, [facility] [address] [place] [address] Jan, [address] [id number] Jan, [facility] [id number] [address] Jan, [facility] [address] [address] Jan, [facility] [address] [address] Jan, Essential hypertension I10 [facility] [id number] [address] Jan, Chronic obstructive pulmonary disease, unspecified COPD type J44.9 [facility] [id number] [address] Jan, [facility] [id number] [address] Jan, [facility] [id number] [address] Jan, Type 2 diabetes mellitus with other diabetic kidney complication E11.29 ; Anemia in other chronic diseases classified elsewhere D63.8 ; Chronic obstructive pulmonary disease, unspecified COPD type J44.9 and BMI 60.0-69.9, adult Z68.44 [facility] [id number] [address] Jan, [facility] [id number] [place] [address] Jan, [facility] [id number] [id number] Jan, [facility] [id number] [place] [id number] Dec, [facility] [id number] [place] [id number] Dec, [facility] [address] [place] [id number] Dec, Essential hypertension I10 ; Type 2 diabetes mellitus with other diabetic kidney complication E11.29 ; Depression, unspecified depression type F32.9 ; Supplemental oxygen dependent Z99.81 ; Chronic pain syndrome G89.4 ; Fibromyalgia M79.7 ; Carpal tunnel syndrome, bilateral G56.03 and Chronic kidney disease, stage 4 (severe) N18.4 [facility] [id number] [place] [address] Dec, Essential hypertension I10 [facility] [id number] [place] [address] November, Type 2 diabetes mellitus with other diabetic kidney complication E11.29 [facility] [id number] [place] [address] November, Chronic pain syndrome G89.4 [facility] [address] [address] November, [facility] [id number] [place] [address] November, [facility] [id number] [place] [address] November, [facility] [address] [place] [address] Oct, Type 2 diabetes mellitus with other diabetic kidney complication E11.29 [place] [address] [address] Oct, Primary insomnia F51.01 [facility] [id number] [id number] Oct, Bilateral lower extremity edema R60.0 [facility] [address] [place] [address] Oct, [facility] [address] [place] [address] Sep, Type 2 diabetes mellitus with other diabetic kidney complication E11.29 and Chronic obstructive pulmonary disease, unspecified COPD type J44.9 [facility] [address] [place] [address] 15 Aug, 2017 Type 2 diabetes mellitus with other diabetic kidney complication E11.29 [address] [place] [address] 12 Aug, 2017 Gastroesophageal reflux disease without esophagitis K21.9 ; halfway current use of anticoagulant Z79.01 ; Chronic pain syndrome G89.4 ; Essential hypertension I10 and Type 2 diabetes mellitus with other diabetic kidney complication E11.29 [facility] [address] [address] 08 Aug, 2017 Chronic pain syndrome G89.4 [facility] [address] [address] Aug, Type 2 diabetes mellitus with other diabetic kidney complication E11.29 [facility] [address] [address] Jul, Diabetic polyneuropathy associated with type 2 diabetes mellitus E11.42 [facility] [address] [address] Jul, Primary insomnia F51.01 [facility] [address] [address] Jul, [facility] [address] [address] Jul, Type 2 diabetes mellitus with other diabetic kidney complication E11.29 and Chronic obstructive pulmonary disease, unspecified COPD type J44.9 [facility] [address] [address] 08 Jul, 2017 Type 2 diabetes mellitus with other diabetic kidney complication E11.29 [facility] [id number] [place] [address] Jun, Type 2 diabetes mellitus with other diabetic kidney complication E11.29 [facility] [id number] [place] [address] 27 Jun, 2017 [facility] [id number] [place] [address] Jun, Chronic obstructive pulmonary disease, unspecified COPD type J44.9 [facility] [id number] [place] [address] May, Type 2 diabetes mellitus with other diabetic kidney complication E11.29 [facility] [address] [address] May, 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 and Essential hypertension I10 [facility] [id number] [place] [address] May, Anemia in other chronic diseases classified elsewhere D63.8 ; Chronic obstructive pulmonary disease, unspecified COPD type J44.9 ; Oxygen desaturation during sleep G47.34 ; Sleep apnea in adult G47.33 and Supplemental oxygen dependent Z99.81 [address] [place] [address] May, Type 2 diabetes mellitus with other diabetic kidney complication E11.29 ; Essential hypertension I10 ; Chronic pain syndrome G89.4 ; BMI 40.0- 44.9, adult Z68.41 ; Gastroesophageal reflux disease without esophagitis K21.9 ; 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 ; 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 ; Diabetic polyneuropathy associated with type 2 diabetes mellitus E11.42 ; Edema of both legs R60.0 and Supplemental oxygen dependent Z99.81 [place] [address] [address] May, [facility] [id number] [place] [address] May, Essential hypertension I10 and Gastroesophageal reflux disease without esophagitis K21.9 [facility] [address] [address] May, [facility] [address] [address] May, Type 2 diabetes mellitus with other diabetic kidney complication E11.29 and halfway current use of anticoagulant Z79.01 [facility] [id number] [place] [address] Apr, Chronic pain syndrome G89.4 and Essential hypertension I10 [facility] [id number] [place] [address] Apr, Type 2 diabetes mellitus with other diabetic kidney complication E11.29 [facility] [id number] [place] [address] Apr, Type 2 diabetes mellitus with other diabetic kidney complication E11.29 [facility] [id number] [place] [address] Apr, Essential hypertension I10 [facility] [id number] [place] [address] Apr, Gastroesophageal reflux disease without esophagitis K21.9 [facility] [id number] [place] [address] Apr, Type 2 diabetes mellitus with other diabetic kidney complication E11.29 [facility] [id number] [place] [address] Apr, Type 2 diabetes mellitus with other diabetic kidney complication E11.29 and 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 [facility] [address] [place] [address] 27 Mar, 2017 Encounter for immunization Z23 and Preoperative examination Z01.818 [facility] [id number] [place] [address] Mar, [facility] [id number] [place] [address] Mar, Type 2 diabetes mellitus with other diabetic kidney complication E11.29 [facility] [id number] [place] [address] 08 Mar, 2017 Type 2 diabetes mellitus with other diabetic kidney complication E11.29 [facility] [id number] [place] [address] Mar, Gastroesophageal reflux disease without esophagitis K21.9 [facility] [id number] [place] [address] Mar, Essential hypertension I10 [facility] [id number] [place] [address] Feb, 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 [facility] [id number] [place] [address] Feb, Type 2 diabetes mellitus with other diabetic kidney complication E11.29 [facility] [id number] [place] [address] Feb, Type 2 diabetes mellitus with other diabetic kidney complication E11.29 [facility] [id number] [place] [address] Feb, Type 2 diabetes mellitus with other diabetic kidney complication E11.29 [facility] [id number] [place] [address] Feb, Gastroesophageal reflux disease without esophagitis K21.9 [facility] [id number] [place] [address] Feb, Type 2 diabetes mellitus with other diabetic kidney complication E11.29 [facility] [address] [address] Feb, halfway current use of anticoagulant Z79.01 [facility] [address] [address] Jan, Type 2 diabetes mellitus with other diabetic kidney complication E11.29 [facility] [id number] [address] Jan, Type 2 diabetes mellitus with other diabetic kidney complication E11.29 [facility] [address] [address] Jan, Chronic pain syndrome G89.4 [facility] [address] [address] Jan, [facility] [id number] [address] Jan, [facility] [address] [address] Jan, [facility] [address] [place] [address] Jan, [facility] [address] [address] Jan, Primary insomnia F51.01 ; Type 2 diabetes mellitus with other diabetic kidney complication E11.29 ; Chronic pain syndrome G89.4 and Essential hypertension I10 [facility] [address] [address] Jan, Primary insomnia F51.01 [facility] [address] [address] Jan, Type 2 diabetes mellitus with other diabetic kidney complication E11.29 [facility] [address] [address] Jan, [facility] [id number] [place] [address] Jan, Chronic obstructive pulmonary disease, unspecified COPD type J44.9 [facility] [id number] [place] [address] Jan, Essential hypertension I10 ; Type 2 diabetes mellitus with other diabetic kidney complication E11.29 ; Chronic obstructive pulmonary disease, unspecified COPD type J44.9 ; Chronic kidney disease, stage 4 (severe) N18.4 ; Right carpal tunnel syndrome G56.01 ; 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 ; halfway (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 and Diabetic polyneuropathy associated with type 2 diabetes mellitus E11.42 [facility] [id number] [place] [address] Jan, Gastroesophageal reflux disease without esophagitis K21.9 [place] [id number] [place] [address] Dec, [facility] [id number] [place] [address] Dec, [facility] [id number] [place] [address] Dec, halfway current use of anticoagulant Z79.01 ; Chronic pain syndrome G89.4 and Essential hypertension I10 [facility] [id number] [place] [address] Dec, [facility] [id number] [place] [address] Dec, Type 2 diabetes mellitus with other diabetic kidney complication E11.29 [facility] [address] [address] Dec, [facility] [id number] [place] [address] Dec, Gastroesophageal reflux disease without esophagitis K21.9 [facility] [id number] [place] [address] November, Type 2 diabetes mellitus with other diabetic kidney complication E11.29 [facility] [address] [address] November, [facility] [id number] [place] [address] November, Type 2 diabetes mellitus with other diabetic kidney complication E11.29 [facility] [id number] [place] [address] November, [facility] [id number] [place] [address] November, Type 2 diabetes mellitus with other diabetic kidney complication E11.29 [facility] [id number] [place] [address] November, [facility] [id number] [place] [address] Oct, Essential hypertension I10 [facility] [id number] [place] [address] Oct, Psoriasis of scalp L40.9 [facility] [id number] [place] [address] Oct, Essential hypertension I10 and Chronic pain syndrome G89.4 [facility] [address] [address] Oct, [facility] [address] [address] Sep, Type 2 diabetes mellitus with other diabetic kidney complication E11.29 [facility] [address] [address] Sep, [facility] [id number] [place] [address] Sep, Type 2 diabetes mellitus with other diabetic kidney complication E11.29 [facility] [address] [address] 20 Mar, 2017 Type 2 diabetes mellitus with other diabetic kidney complication E11.29 [facility] [id number] [place] [address] 09 Sep, 2017 Type 2 diabetes mellitus [...] extremity R20.2 and Psoriasis of scalp L40.9 [facility] [id number] [place] [address] Sep, [address] [address] Aug, Essential hypertension I10 [facility] [address] [address] Aug, History of DVT (deep vein thrombosis) Z86.718 [facility] [id number] [place] [address] Aug, [facility] [id number] [place] [address] Jul, [facility] [id number] [place] [address] Jul, [facility] [address] [place] [address] Jul, halfway current use of anticoagulant Z79.01 ; Chronic pain syndrome G89.4 and Chronic kidney disease, stage 4 (severe) N18.4 [place] [id number] [place] [address] Jul, [facility] [address] [place] [address] Jul, [facility] [address] [place] [address] Jul, [facility] [id number] [place] [address] Jul, [facility] [id number] [place] [address] Jul, [facility] [id number] [place] [address] Jul, Type 2 diabetes mellitus with other diabetic kidney complication E11.29 [place] [id number] [place] [address] Jul, History of DVT (deep vein thrombosis) Z86.718 [facility] [id number] [place] [address] Jun, [facility] [id number] [place] [address] Jun, History of DVT (deep vein thrombosis) Z86.718 [place] [id number] [place] [address] 15 Jun, 2016 Post traumatic stress disorder (PTSD) F43.10 [place] [id number] [place] [address] 07 Jun, 2016 Type 2 diabetes mellitus [...] pain M79.641 and Right wrist pain M25.531 [facility] [id number] [place] [address] May, [facility] [id number] [place] [address] May, [facility] [address] [address] May, [facility] [id number] [place] [address] May, [facility] [id number] [place] [address] May, Anemia in other chronic diseases classified elsewhere D63.8 [facility] [address] [address] May, [facility] [id number] [place] [address] Apr, [facility] [id number] [place] [address] 27 Mar, 2016 Dermatofibroma D23.9 [facility] [id number] [place] [address] 20 Mar, 2016 [facility] [id number] [place] [address] 14 Mar, 2016 Chronic pain syndrome G89.4 [facility] [id number] [place] [address] 09 Mar, 2016 [facility] [id number] [place] [address] 07 Mar, 2016 [facility] [id number] [place] [address] 06 Mar, 2016 [facility] [address] [place] [address] Feb, [facility] [address] [address] Feb, [facility] [address] [address] Feb, [facility] [id number] [place] [address] Feb, [facility] [address] [place] [address] Feb, [facility] [address] [place] [address] Feb, [facility] [address] [place] [address] Feb, Type 2 diabetes mellitus with other diabetic kidney complication E11.29 ; Diabetic polyneuropathy associated with type 2 diabetes mellitus E11.42 ; Iron deficiency anemia due to chronic blood loss D50.0 ; Chronic obstructive pulmonary disease, unspecified COPD type J44.9 ; 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 ; History of DVT (deep vein thrombosis) Z86.718 ; Chronic pain syndrome G89.4 ; Oxygen desaturation during sleep G47.34 ; Sleep apnea in adult G47.33 ; Gastroesophageal reflux disease without esophagitis K21.9 ; Essential hypertension I10 ; Primary insomnia F51.01 ; Depression, unspecified depression type F32.9 and Renal failure, chronic, stage 4 (severe) N18.4 [facility] [address] [address] Feb, Skin tags, multiple acquired L91.8 [facility] [id number] [place] [address] Jan, [facility] [address] [id number] Jan, Dental examination Z01.20 [facility] [id number] [place] [address] Jan, [facility] [address] [place] [id number] [place] [address] Jan, Type 2 diabetes mellitus with other diabetic kidney complication E11.29 ; Diabetic polyneuropathy associated with type 2 diabetes mellitus E11.42 ; Iron deficiency anemia due to chronic blood loss D50.0 ; Chronic obstructive pulmonary disease, unspecified COPD type J44.9 ; 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 ; [...] Renal failure, chronic, stage 4 (severe) N18.4 [address] [place] [address] Dec, Diabetes type 2, uncontrolled E11.65 [place] [id number] [place] [address] Dec, [place] [id number] [place] [address] Dec, Type 2 diabetes mellitus with other diabetic kidney complication E11.29 ; Diabetic polyneuropathy associated with type 2 diabetes mellitus E11.42 ; Iron deficiency anemia due to chronic blood loss D50.0 ; Chronic obstructive pulmonary disease, unspecified COPD type J44.9 ; 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 ; History of DVT (deep vein thrombosis) Z86.718 ; Chronic pain syndrome G89.4 ; Oxygen desaturation during sleep G47.34 ; Sleep apnea in adult G47.33 ; Gastroesophageal reflux disease without esophagitis K21.9 ; Essential hypertension I10 ; Primary insomnia F51.01 and Depression, unspecified depression type F32.9 [facility] [address] [id number] [id number] Dec, Dental caries K02.9 [facility] [facility] [id number] [place] [address] [id number] Dec, [facility] [address] [id number] [place] [id number] Dec, Dental examination Z01.20 [facility] [address] [id number] [place] [id number] November, Dental examination Z01.20 and Dental caries K02.9 [facility] [address] [id number], [place] [id number] Oct, [facility] [address] [id number] [place] [address] [id number] Oct, [facility] [address] [id number], [place] [id number] Sep, [facility] [address] [id number] [place] [address] [id number] Sep, [facility] [address] [id number] [place] [address] [id number] Sep, [facility] [address] [id number] [place] [address] [id number] Sep, Other chronic pain 338.29 [facility] [address] [id number], [place] [id number] Aug, Diabetes type 2, uncontrolled E11.65 and Morbid obesity due to excess calories E66.01 [facility] [address] [id number], [place] [id number] Aug, Hair loss L65.9 [facility] [address] [id number], [place] [id number] Aug, [facility] [address] [id number], [place] [id number] Jul, [facility] [address] [id number], [place] [id number] Jul, [facility] [address] [id number] [place] [address] [id number] Jun, [facility] [address] [id number] [place] [address] [id number] Jun, Hair loss L65.9 and Disorder of the skin and subcutaneous tissue, unspecified L98.9 [id number] [place] [address] [id number] May, Type 2 diabetes mellitus with other diabetic kidney complication E11.29 ; Type 2 diabetes mellitus with hyperglycemia E11.65 ; Morbid obesity due to excess calories E66.01 and Essential hypertension I10 [place] [id number] [place] [address] [phone] May, Diabetes type 2, uncontrolled E11.65 ; Encounter for immunization Z23 and Morbid obesity due to excess calories E66.01 [place] [id number] [place] [address] [id number] May, [facility] [address] [address] Apr, [address] [id number] Apr, Hyperglycemia R73.[address] [id number] Apr, [address] [id number] Apr, Depression F32.9 ; Encounter for immunization Z23 ; Hyperglycemia R73.9 and Anemia in other chronic diseases classified elsewhere D63.8 [facility] [address] [place] [address] [id number] Mar, [address] [place] [address] [phone] Feb, Positive occult stool blood test 792.1 [place] [id number] [place] [address] [id number] Feb, Depression 311 ; Other chronic pain 338.29 and Diabetes with renal manifestations, type II or unspecified type, not stated as uncontrolled 250.40 [facility] [address] [place] [id number] [place] [address] Feb, Occult blood in stools 792.[id number] [place] [address] [id number] Feb, Anemia 285.9 ; Occult blood positive stool 792.1 ; Unspecified essential hypertension 401.9 and Other chronic pain 338.29 [facility] [place] [id number], [place] [id number] Feb, [facility] [place] [id number] [place] [address] [id number] Feb, Anemia 285.9 [facility] [place] [id number], [place] [id number] Feb, [facility] [place] [id number] [place] [address] [id number] Feb, [facility] [place] [address] [place] [id number] [place] [address] [id number] Feb, Diabetes with renal manifestations, type II or unspecified type, not stated as uncontrolled 250.40 ; Other chronic pain 338.29 ; Unspecified essential hypertension 401.9 ; Anemia 285.9 and Depression 311 [facility] [place] [id number] [place] [address] [id number] Jan, [facility] [id number] [place] [address] [id number] Jan, Anemia 285.9 and Follow up V67.9 [facility] [place] [id number], [place] [id number] Jan, [facility] [id number] [place] [address] [id number] Jan, [facility] [place] [id number] [place] [address] [id number] Jan, [facility] [id number] [place] [address] [id number] Dec, [facility] [id number] [address] Oct, [facility] [address] [id number] [place] [address] Oct, [facility] [id number] [place] [address] Sep, [facility] [address] [id number][place] [id number] Sep, [facility] [id number] [place] [address] Sep, [facility] [address] [id number], [place] [id number] Aug, [facility] [place] [facility] [address] [facility] [id number] [address] Aug, [facility] [place] [facility] [address] [facility] [id number] [place] [address] Aug, [facility] [address] [id number], [place] [id number] Aug, [facility] [place] [facility] [address] [facility] [id number] [place] [address] Aug, [facility] [place] [facility] [address] [id number] [address] Aug, [facility] [address] [id number], [place] [id number] Aug, [facility] [place] [facility] [id number] [address] Aug, [facility] [address] [facility] [id number], [place] [id number] Jul, [facility] [place] [facility] [id number] [address] Jul, [facility] [place] [facility] [address] [id number] [address] Jul, [facility] [address] [id number], [place] [id number] Jul, [facility] [place] [facility] [address] [facility] [id number] [address] Jul, [facility] [address] [facility] [id number], [place] [id number] Jul, [facility] [place] [facility] [address] [facility] [id number] [address] Jul, [facility] [address] [id number], [place] [id number] Jun, [facility] [address] [facility] [id number], [place] [id number] Jun, [facility] [place] [facility] [address] [facility] [id number] [place] [address] Jun, [facility] [place] [facility] [address] [facility] [id number] [place] [address] Jun, [facility] [address] [facility] [id number], [place] 004005079 Jun, [facility] [place] [facility] [address] [facility] [id number] [place] [address] Jun, [facility] [address] [facility] [id number], [place] [id number] May, [facility] [place] [facility] [address] [id number] [address] May, [facility] [place] [facility] [id number] [address] May, [facility] [address] [facility] [id number], [place] [id number] Apr, [facility] [place] [facility] [address] [facility] [id number] [place] [address] Apr, [facility] [address] [facility] [id number], [place] [id number] Apr, [facility] [address] [facility] [id number], [place] [id number] Apr, [facility] [place] [facility] [address] [facility] [id number] [place] [address] Apr, [facility] [place] [facility] [address] [facility] [id number] [address] Apr, [facility] [address] [facility] [id number], [place] [id number] Mar, [facility] [place] [facility] [address] [facility] [id number] [address] Mar, [facility] [address] [facility] [id number], [place] [id number] Mar, [facility] [place] [facility] [address] [id number] [place] [address] Mar, [facility] [address] [id number] [place] [id number] Mar, [facility] [place] [facility] [address] [facility] [id number] [place] [address] Mar, [facility] [address] [id number] [place] [id number] Mar, [facility] [place] [facility] [address] [id number] [place] [address] Mar, [facility] [address] [id number] [place] [id number] Mar, [facility] [place] [facility] [address] [facility] [id number] [place] [address] Mar, [facility] [address] [facility] [id number] [place] [id number] Feb, [facility] [place] [facility] [address] [facility] [id number] [address] Feb, [facility] [address] [facility] [id number], [place] [id number] Jan, [facility] [place] [facility] [address] [facility] [id number] [place] [address] Jan, [facility] [address] [facility] [id number] [place] [id number] Jan, [facility] [place] [facility] [address] [facility] [id number] [address] Jan, [facility] [address] [facility] [id number], [place] 696187275 Jan, [facility] [place] [facility] [address] [facility] [id number] [place] [address] Jan, [facility] [place] [facility] [address] [facility] [id number] [address] Dec, [facility] [place] [facility] [address] [facility] [id number] [place] [address] Dec, [facility] [address] [id number] [place] [id number] November, [facility] [place] [facility] [address] [id number] [place] [address] November, [facility] [address] [id number] [place] [id number] November, [facility] [place] [facility] [address] [id number] [place] [address] November, [facility] [address] [id number] [place] [id number] Oct, [facility] [place] [facility] [address] [id number] [place] [address] Oct, [facility] [place] [facility] [address] [facility] [id number] [place] [address] Oct, [facility] [place] [facility] [address] [facility] [id number] [place] [address] Oct, [facility] [place] [facility] [address] [id number] [place] [address] Oct, [facility] [place] [facility] [address] [facility] [id number] [place] [address] Oct, [facility] [address] [id number] [place] 657506141 Sep, [facility] [address] [id number] [place] [id number] Sep, [facility] [place] [facility] [address] [id number] [place] [address] Sep, [facility] [place] [facility] [address] [id number] [place] [address] Sep, [facility] [address] [id number] [place] [id number] Sep, [facility] [place] [facility] [address] [facility] [id number] [place] [address] Sep, [facility] [place] [facility] [address] [facility] [id number] [place] [address] Aug, [facility] [place] [facility] [address] [facility] [id number] [place] [address] Aug, [facility] [address] [facility] [id number], [place] [id number] Aug, [facility] [address] [facility] [id number] [place] 085381293 Aug, [facility] [place] [facility] [address] [facility] [id number] [address] Aug, [facility] [address] [facility] [id number] [place] 510764259 Aug, [facility] [place] [facility] [id number] [address] Aug, [facility] [address] [id number], [place] 754189970 Aug, [facility] [place] [facility] [id number] [address] Aug, [facility] [address] [facility] [id number], [place] [id number] Aug, [facility] [place] [facility] [id number] [address] Aug, [facility] [place] [address] [id number], [place] 216089497 Aug, [facility] [place] [facility] [id number] [address] Aug, [facility] [place] [facility] [address] [facility] [id number] [address] Jul, [facility] [address] [facility] [id number], [place] 697607864 Jun, [facility] [place] [facility] [address] [id number] [address] Jun, [facility] [place] [facility] [id number] [address] Jun, [facility] [place] [facility] [address] [id number] [place] [address] Jun, [facility] [address] [facility] [id number], [place] [id number] Jun, [facility] [place] [facility] [address] [id number] [place] [address] Jun, [facility] [place] [facility] [address] [facility] [id number] [address] Jun, [facility] [address] [facility] [id number] [place] [id number] Jun, [facility] [place] [facility] [address] [facility] [id number] [address] Jun, [facility] [place] [facility] [address] [id number] [address] May, [facility] [address] [id number], [place] 835539651 May, [facility] [place] [facility] [address] [id number] [address] May, [facility] [place] [facility] [address] [id number] [address] May, [facility] [place] [facility] [address] [id number] [address] May, [facility] [place] [facility] [address] [facility] [id number] [place] [address] May, [facility] [address] [facility] [id number], [place] 768342620 May, [facility] [place] [facility] [address] [facility] [id number] [place] [address] May, [facility] [address] [facility] [id number], [place] [id number] May, [facility] [place] [facility] [address] [facility] [id number] [place] [address] May, [facility] [address] [facility] [id number], [place] [id number] Apr, [facility] [place] [facility] [address] [facility] [id number] [address] Apr, [facility] [place] [facility] [address] [facility] [id number] [address] Apr, [facility] [place] [id number], [place] 901596367 Apr, [facility] [place] [facility] [address] [facility] [id number] [place] [address] Apr, [facility] [place] [facility] [id number] [address] Apr, [facility] [place] [id number], [place] 262615503 Apr, [facility] [place] [facility] [id number] [address] Apr, [facility] [place] [facility] [address] [facility] [id number] [address] Apr, [facility] [place] [facility] [id number] [address] Apr, [facility] [id number], [place] 635779538 Apr, [facility] [place] [facility] [address] [facility] [id number] [address] Apr, [facility] [place] [id number], [place] 470532760 Apr, [facility] [place] [facility] [address] [facility] [id number] [place] [address] Apr, [facility] [place] [address] [facility] [id number], [place] 948452345 Apr, [facility] [place] [facility] [id number] [address] Apr, [facility] [place] [facility] [address] [facility] [id number] [address] Apr, [facility] [address] [facility] [id number] [address] Apr, [facility] [place] [address] [id number], [place] 401240841 Apr, [facility] [address] [facility] [id number] [place] [address] Mar, [facility] [address] [facility] [id number] [address] Mar, [facility] [address] [id number] [place] [id number] Mar, [facility] [address] [id number] [place] 714027203 Mar, [facility] [address] [id number] [place] 834237161 Mar, [facility] [address] [id number] [place] 623783678 Feb, [facility] [address] [id number] [place] 718355225 Feb, [facility] [address] [id number] [place] 100022506 Feb, [facility] [address] [facility] [id number] [place] [address] Feb, [facility] [address] [id number], [place] 930261864 Feb, [facility] [address] [id number] [place] [id number] Feb, [facility] [address] [id number] [place] 182956549 Feb, [facility] [address] [id number] [place] [id number] Feb, [facility] [address] [id number] [place] [id number] Feb, [facility] [place] [address] [id number] [place] [id number] Jan, [facility] [place] [address] [id number] [place] 454952673 Jan, [facility] [place] [address] [id number] [place] 057134126 Jan, [facility] [place] [address] [id number] [place] 996549352 Jan, [facility] [place] [address] [id number] [place] [id number] Jan, [facility] [address]00565100[place] [address] Jan, [facility] [place] [address] [id number] [place] 583180147 Jan, [facility] [place] [address] [id number] [place] 933719850 Jan, [facility] [place] [address] [id number] [place] 494727261 Dec, [facility] [place] [address] [id number] [place] 012678393 November, [facility] [place] [address] [id number] [place] 142347468 November, [facility] [place] [address] [id number] [place] 549061151 November, [facility] [place] [address] [id number] [place] [id number] November, [facility] [place] [address] [id number] [place] [id number] November, [facility] [place] [address] [id number] [place] [id number] November, [facility] [place] [address] [id number] [place] [id number] Jul, [facility] [place] [address] [id number] [place] [id number] Jul, [facility] [place] [address] [id number] [place] [id number] Jul, [facility] [place] [address] [id number] [place] [id number] Jun, [facility] [id number] [address] Jun, [facility] [place] [address] [id number][place] [id number] May, [facility] [address] [facility] [id number] [address] May, [facility] [place] [address] [id number][place] [id number] May, [facility] [address] [facility] [id number] [address] May, [facility] [place] [address] [id number][place] [id number] May, [facility] [address] [facility] [id number] [address] May, [facility] [place] [address] [facility] [id number][place] [id number] Apr, [facility] [id number] [address] Apr, [facility] [address] [facility] [id number] [address] 18 Apr, 2012 [facility] [place] [address] [id number][place] [id number] Apr, [facility] [place] [address] [id number][place] [id number] Apr, [facility] [address] [facility] [id number] [address] Apr, [facility] [address] [facility] [id number] [address] Apr, [facility] [place] [address] [id number][place] [id number] Apr, [facility] [address] [facility] [id number] [address] 10 Apr, 2012 [facility] [place] [address] [id number][place] [id number] 09 Apr, 2012 [facility] [place] [address] [id number] [place] [id number] Apr, [facility] [place] [address] [id number] [place] [id number] Mar, [facility] [place] [address] [id number] [place] [id number] Feb, [facility] [place] [address] [id number] [place] [id number] Jan, [facility] [place] [address] [id number] [place] [id number] Dec, [facility] [place] [address] [id number] [place] [id number] Dec, [facility] [place] [address] [id number] [place] [id number] Dec, [facility] [place] [address] [id number] [place] [id number] Dec, [facility] [place] [address] [id number] [place] [id number] Dec, [facility] [place] [address] [id number] [place] [id number] November, [facility] [place] [address] [id number] [place] [id number] November, [facility] [place] [address] [id number] [place] [id number] November, [facility] [address] [facility] [id number] [address] November, [facility] [place] [address] [id number] [place] [id number] November, [facility] [place] [address] [id number] [place] [id number] November, [facility] [place] [address] [id number] [place] [address] Oct, [facility] [place] [address] [id number] [place] [id number] Oct, [facility] [place] [address] [id number] [place] [id number] Oct, [facility] [place] [address] [id number] [place] [id number] Oct, [facility] [place] [address] [id number] [place] [id number] Oct, [facility] [place] [address] [id number] [place] [id number] Oct, [facility] [place] [address] [id number] [place] [id number] Sep, [facility] [place] [address] [id number] [place] [id number] Aug, [facility] [place] [address] [id number] [place] [id number] Aug, [facility] [place] [address] [id number] [place] [id number] Jul, [facility] [address] [facility] [id number] [address] Jun, [facility] [address] [id number] [address] Jun, [facility] [id number] [address] Jun, [facility] [id number] [address] Jun, [facility] [id number] [address] May, [facility] [id number] [address] May, [facility] [address] [id number] [address] Apr, [facility] [id number] [address] Apr, [facility] [id number] [address] Apr, [facility] [address] [id number] [address] Feb, [facility] [place] [facility] [address] [id number] [place] [address] 15 Aug, 2010 [facility] [address] [id number] [place] [address] 18 Jul, 2010 [facility] [place] [facility] [address] [id number] [place] [address] 30 Jun, 2010 [facility] [address] [id number] [place] [address] 29 May, 2010 [facility] [place] [facility] [address] [id number] [place] [address] May, [facility] [address] [id number] [place] [address] May, [facility] [address] [facility] [id number] [place] [address] May, [facility] [address] [facility] [id number] [place] [address] May, [facility] [address] [id number] [place] [address] 16 Aug, 2009 [facility] [address] [facility] [id number] [place] [address] Jun, [facility] [address] [facility] [id number] [place] [address] Jun, [facility] [place] [facility] [address] [facility] [id number] [place] [address] Jun, [facility] [place] [facility] [address] [id number] [place] [address] 24 May, 2009 [facility] [place] [facility] [address] [id number] [place] [address] 28 Apr, 2009 [facility] [place] [facility] [address] [facility] [id number] [place] [address] Apr, [facility] [place] [facility] [address] [facility] [id number] [place] [address] Apr, [facility] [address] [facility] [id number] [address] Jan, [facility] [address] [facility] [id number] [address] Oct, [facility] [address] [facility] [id number] [address] May, [facility] [address] [facility] [id number] [address] May, IMMUNIZATIONS No Known Immunizations SOCIAL HISTORY Never Assessed REASON FOR VISIT EMR-[facility] [place] PLAN OF CARE [...] History Renal Insuf Acute required Dialysis [facility] Rveeles 2012 -Dr. Simon now Early Nephrology Medical History Colonoscopy (polyps 2 ) [...]
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
--- OUTSIDE RECORDS SUMMARY | 2018-12-28 17:48 | XMS REPORT ---
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 Active 650027137 Problem Chronic pain syndrome G89.4 Active 574813937 Problem Sleep apnea in adult G47.33 Active 29636866 Problem Diabetic polyneuropathy associated with type 2 diabetes mellitus E11.42 Active 94236753 Problem Primary insomnia F51.01 Active 1437623 Problem Chronic obstructive pulmonary disease, unspecified COPD type J44.9 Active 45452643 Problem Right carpal tunnel syndrome G56.01 Active 157926311376506 Problem Gastroesophageal reflux disease without esophagitis K21.9 Active 314376850 Problem 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 Active 894692766402853 Problem Chronic kidney disease, stage 4 (severe) N18.4 Active 190387848 Problem Type 2 diabetes mellitus with hyperglycemia E11.65 Active 058759934739541 Problem Psoriasis of scalp L40.9 Active 221346070 Problem Carpal tunnel syndrome, bilateral G56.03 Active 30187273742483005 Problem Depression, unspecified depression type F32.9 Active 99606145 Problem Type 2 diabetes mellitus with other diabetic kidney complication E11.29 Active 299015394 Problem Fibromyalgia M79.7 Active 101815801 Problem Oxygen desaturation during sleep G47.34 Active 752369039 Problem Anemia in other chronic diseases classified elsewhere D63.8 Active 732799201 Problem History of DVT (deep vein thrombosis) Z86.718 Active 248178873 Problem Paresthesia of right upper extremity R20.2 Active 41650253 Problem alf 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 Active 139810021 Problem Supplemental oxygen dependent Z99.81 Active 345979453407 Problem Bilateral lower extremity edema R60.0 Active 858399832 ALLERGIES No Information ENCOUNTERS Encounter Location Date Diagnosis [facility] [address], [place] [address] Apr, [facility] [address], [place] [address] Feb, [facility] [address] [place] [address] Feb, [facility] [address], [place] [address] Jan, [facility] [address], [place] [address] Jan, [facility] [address] [place] [address] Jan, [address] [id number] Jan, [facility] [address], [place] [address] Jan, [facility] [address], [place] [address] Jan, [facility] [address], [place] [address] Jan, Essential hypertension I10 [facility] [address], [place] [address] Jan, Chronic obstructive pulmonary disease, unspecified COPD type J44.9 [facility] [id number] [address] Jan, [facility] [id number] [address] Jan, [facility] [id number] [address] Jan, Type 2 diabetes mellitus with other diabetic kidney complication E11.29 ; Anemia in other chronic diseases classified elsewhere D63.8 ; Chronic obstructive pulmonary disease, unspecified COPD type J44.9 and BMI 60.0-69.9, adult Z68.44 [facility] [address] [address] Jan, [facility] [id number] [place] [address] Jan, [facility] [id number] [id number] Jan, [facility] [id number] [place] [id number] Dec, [facility] [id number] [place] [id number] Dec, [facility] [address] [place] [id number] Dec, Essential hypertension I10 ; Type 2 diabetes mellitus with other diabetic kidney complication E11.29 ; Depression, unspecified depression type F32.9 ; Supplemental oxygen dependent Z99.81 ; Chronic pain syndrome G89.4 ; Fibromyalgia M79.7 ; Carpal tunnel syndrome, bilateral G56.03 and Chronic kidney disease, stage 4 (severe) N18.4 [facility] [id number] [place] [address] Dec, Essential hypertension I10 [facility] [id number] [place] [address] November, Type 2 diabetes mellitus with other diabetic kidney complication E11.29 [facility] [id number] [place] [address] November, Chronic pain syndrome G89.4 [facility] [address], [place] [address] November, [facility] [id number] [place] [address] November, [facility] [id number] [place] [address] November, [facility] [address] [place] [address] Oct, Type 2 diabetes mellitus with other diabetic kidney complication E11.29 [place] [address], [place] [address] Oct, Primary insomnia F51.01 [facility] [id number] [id number] Oct, Bilateral lower extremity edema R60.0 [place] [address] [place] [address] Oct, [place] [address] [place] [address] Sep, Type 2 diabetes mellitus with other diabetic kidney complication E11.29 and Chronic obstructive pulmonary disease, unspecified COPD type J44.9 [place] [address] [place] [address] 15 Aug, 2017 Type 2 diabetes mellitus with other diabetic kidney complication E11.29 [address] [place] [address] 12 Aug, 2017 Gastroesophageal reflux disease without esophagitis K21.9 ; alf current use of anticoagulant Z79.01 ; Chronic pain syndrome G89.4 ; Essential hypertension I10 and Type 2 diabetes mellitus with other diabetic kidney complication E11.29 [place] [address], [place] [address] 08 Aug, 2017 Chronic pain syndrome G89.4 [place] [address], [place] [address] Aug, Type 2 diabetes mellitus with other diabetic kidney complication E11.29 [place] [address], [place] [address] Jul, Diabetic polyneuropathy associated with type 2 diabetes mellitus E11.42 [place] [address], [place] [address] Jul, Primary insomnia F51.01 [facility] [address], [place] [address] Jul, [place] [address], [place] [address] Jul, Type 2 diabetes mellitus with other diabetic kidney complication E11.29 and Chronic obstructive pulmonary disease, unspecified COPD type J44.9 [place] [address], [place] [address] 08 Jul, 2017 Type 2 diabetes mellitus with other diabetic kidney complication E11.29 [place] [id number] [place] [address] Jun, Type 2 diabetes mellitus with other diabetic kidney complication E11.29 [facility] [facility] [address] [place] [address] 27 Jun, 2017 [place] [address] [place] [address] Jun, Chronic obstructive pulmonary disease, unspecified COPD type J44.9 [place] [facility] [address] [place] [address] May, Type 2 diabetes mellitus with other diabetic kidney complication E11.29 [place] [address], [place] [address] May, 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41 ; Gastroesophageal reflux disease without esophagitis K21.9 ; 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 ; 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 ; Diabetic polyneuropathy associated with type 2 diabetes mellitus E11.42 ; Edema of both legs R60.0 and Supplemental oxygen dependent Z99.81 [place] [address] [address] May, [place] [address] [place] [address] May, Essential hypertension I10 and Gastroesophageal reflux disease without esophagitis K21.9 [place] [address] [address] May, [place] [address] [address] May, Type 2 diabetes mellitus with other diabetic kidney complication E11.29 and alf current use of anticoagulant Z79.01 [place] [address] [place] [address] Apr, Chronic pain syndrome G89.4 and Essential hypertension I10 [place] [address] [place] [address] Apr, Type 2 diabetes mellitus with other diabetic kidney complication E11.29 [facility] [facility] [address] [place] [address] Apr, Type 2 diabetes mellitus with other diabetic kidney complication E11.29 [place] [address] [place] [address] Apr, Essential hypertension I10 [place] [address] [place] [address] Apr, Gastroesophageal reflux disease without esophagitis K21.9 [place] [address] [place] [address] Apr, Type 2 diabetes mellitus with other diabetic kidney complication E11.29 [place] [address] [place] [address] Apr, Type 2 diabetes mellitus with other diabetic kidney complication E11.29 and 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 [facility] [address] [place] [address] 27 Mar, 2017 Encounter for immunization Z23 and Preoperative examination Z01.818 [facility] [address] [place] [address] Mar, [facility] [address] [place] [address] Mar, Type 2 diabetes mellitus with other diabetic kidney complication E11.29 [place] [address] [place] [address] 08 Mar, 2017 Type 2 diabetes mellitus with other diabetic kidney complication E11.29 [place] [address] [place] [address] Mar, Gastroesophageal reflux disease without esophagitis K21.9 [place] [address] [place] [address] Mar, Essential hypertension I10 [place] [address] [place] [address] Feb, 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 [facility] [address] [place] [address] Feb, Type 2 diabetes mellitus with other diabetic kidney complication E11.29 [facility] [address] [place] [address] Feb, Type 2 diabetes mellitus with other diabetic kidney complication E11.29 [place] [address] [place] [address] Feb, Type 2 diabetes mellitus with other diabetic kidney complication E11.29 [place] [address] [place] [address] Feb, Gastroesophageal reflux disease without esophagitis K21.9 [facility] [address] [place] [address] Feb, Type 2 diabetes mellitus with other diabetic kidney complication E11.29 [facility] [address], [place] [address] Feb, alf current use of anticoagulant Z79.01 [facility] [address], [place] [address] Jan, Type 2 diabetes mellitus with other diabetic kidney complication E11.29 [facility] [address], [place] [address] Jan, Type 2 diabetes mellitus with other diabetic kidney complication E11.29 [facility] [address], [place] [address] Jan, Chronic pain syndrome G89.4 [facility] [address], [place] [address] Jan, [facility] [address], [place] [address] Jan, [facility] [address], [place] [address] Jan, [facility] [address] [place] [address] Jan, [facility] [address], [place] [address] Jan, Primary insomnia F51.01 ; Type 2 diabetes mellitus with other diabetic kidney complication E11.29 ; Chronic pain syndrome G89.4 and Essential hypertension I10 [facility] [address], [place] [address] Jan, Primary insomnia F51.01 [facility] [address], [place] [address] Jan, Type 2 diabetes mellitus with other diabetic kidney complication E11.29 [facility] [address], [place] [address] Jan, [facility] [id number] [place] [address] Jan, Chronic obstructive pulmonary disease, unspecified COPD type J44.9 [facility] [address] [place] [address] Jan, Essential hypertension I10 ; Type 2 diabetes mellitus with other diabetic kidney complication E11.29 ; Chronic obstructive pulmonary disease, unspecified COPD type J44.9 ; Chronic kidney disease, stage 4 (severe) N18.4 ; Right carpal tunnel syndrome G56.01 ; 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 ; alf (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 and Diabetic polyneuropathy associated with type 2 diabetes mellitus E11.42 [place] [address] [place] [address] Jan, Gastroesophageal reflux disease without esophagitis K21.9 [place] [address] [place] [address] Dec, [facility] [address] [place] [address] Dec, [facility] [address] [place] [address] Dec, alf current use of anticoagulant Z79.01 ; Chronic pain syndrome G89.4 and Essential hypertension I10 [facility] [address] [place] [address] Dec, [facility] [address] [place] [address] Dec, Type 2 diabetes mellitus with other diabetic kidney complication E11.29 [facility] [address], [place] [address] Dec, [facility] [address] [place] [address] Dec, Gastroesophageal reflux disease without esophagitis K21.9 [facility] [address] [place] [address] November, Type 2 diabetes mellitus with other diabetic kidney complication E11.29 [facility] [address], [place] [address] November, [facility] [address] [place] [address] November, Type 2 diabetes mellitus with other diabetic kidney complication E11.29 [facility] [address] [place] [address] November, [facility] [address] [place] [address] November, Type 2 diabetes mellitus with other diabetic kidney complication E11.29 [facility] [address] [place] [address] November, [facility] [address] [place] [address] Oct, Essential hypertension I10 [facility] [address] [place] [address] Oct, Psoriasis of scalp L40.9 [facility] [address] [place] [address] Oct, Essential hypertension I10 and Chronic pain syndrome G89.4 [facility] [address], [place] [address] Oct, [facility] [address], [place] [address] Sep, Type 2 diabetes mellitus with other diabetic kidney complication E11.29 [facility] [address], [place] [address] Sep, [facility] [address] [place] [address] Sep, Type 2 diabetes mellitus with other diabetic kidney complication E11.29 [facility] [address], [place] [address] 20 Mar, 2017 Type 2 diabetes mellitus with other diabetic kidney complication E11.29 [place] [address] [place] [address] 09 Sep, 2017 Type 2 diabetes mellitus [...] extremity R20.2 and Psoriasis of scalp L40.9 [place] [address] [place] [address] Sep, [address] [address] Aug, Essential hypertension I10 [place] [address] [address] Aug, History of DVT (deep vein thrombosis) Z86.718 [place] [address] [place] [address] Aug, [place] [address] [place] [address] Jul, [place] [address] [place] [address] Jul, [place] [address] [place] [address] Jul, alf current use of anticoagulant Z79.01 ; Chronic pain syndrome G89.4 and Chronic kidney disease, stage 4 (severe) N18.4 [place] [address] [place] [address] Jul, [place] [address] [place] [address] Jul, [place] [address] [place] [address] Jul, [place] [address] [place] [address] Jul, [place] [address] [place] [address] Jul, [place] [address] [place] [address] Jul, Type 2 diabetes mellitus with other diabetic kidney complication E11.29 [place] [address] [place] [address] Jul, History of DVT (deep vein thrombosis) Z86.718 [place] [address] [place] [address] Jun, [place] [address] [place] [address] Jun, History of DVT (deep vein thrombosis) Z86.718 [place] [address] [place] [address] 15 Jun, 2016 Post traumatic stress disorder (PTSD) F43.10 [place] [address] [place] [address] 07 Jun, 2016 Type 2 diabetes mellitus [...] pain M79.641 and Right wrist pain M25.531 [facility] [address] [place] [address] May, [facility] [address] [place] [address] May, [facility] [address] [address] May, [facility] [address] [place] [address] May, [facility] [address] [place] [address] May, Anemia in other chronic diseases classified elsewhere D63.8 [facility] [address] [address] May, [facility] [address] [place] [address] Apr, [facility] [address] [place] [address] 27 Mar, 2016 Dermatofibroma D23.9 [facility] [address] [place] [address] 20 Mar, 2016 [facility] [address] [place] [address] 14 Mar, 2016 Chronic pain syndrome G89.4 [facility] [address] [place] [address] 09 Mar, 2016 [facility] [address] [place] [address] 07 Mar, 2016 [facility] [address] [place] [address] 06 Mar, 2016 [facility] [address] [place] [address] Feb, [facility] [address], [place] [address] Feb, [facility] [address], [place] [address] Feb, [facility] [address] [place] [address] Feb, [facility] [address] [place] [address] Feb, [facility] [address] [place] [address] Feb, [facility] [address] [place] [address] Feb, Type 2 diabetes mellitus with other diabetic kidney complication E11.29 ; Diabetic polyneuropathy associated with type 2 diabetes mellitus E11.42 ; Iron deficiency anemia due to chronic blood loss D50.0 ; Chronic obstructive pulmonary disease, unspecified COPD type J44.9 ; 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 ; History of DVT (deep vein thrombosis) Z86.718 ; Chronic pain syndrome G89.4 ; Oxygen desaturation during sleep G47.34 ; Sleep apnea in adult G47.33 ; Gastroesophageal reflux disease without esophagitis K21.9 ; Essential hypertension I10 ; Primary insomnia F51.01 ; Depression, unspecified depression type F32.9 and Renal failure, chronic, stage 4 (severe) N18.4 [facility] [address] [address] Feb, Skin tags, multiple acquired L91.8 [facility] [id number] [place] [address] Jan, [facility] [address] [address] Jan, Dental examination Z01.20 [facility] [id number] [place] [address] Jan, [facility] [address] [place] [address] [place] [address] Jan, Type 2 diabetes mellitus with other diabetic kidney complication E11.29 ; Diabetic polyneuropathy associated with type 2 diabetes mellitus E11.42 ; Iron deficiency anemia due to chronic blood loss D50.0 ; Chronic obstructive pulmonary disease, unspecified COPD type J44.9 ; 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 ; [...] Renal failure, chronic, stage 4 (severe) N18.[address] [place] [address] Dec, Diabetes type 2, uncontrolled E11.65 [place] [address] [place] [address] Dec, [place] [address] [place] [address] Dec, Type 2 diabetes mellitus with other diabetic kidney complication E11.29 ; Diabetic polyneuropathy associated with type 2 diabetes mellitus E11.42 ; Iron deficiency anemia due to chronic blood loss D50.0 ; Chronic obstructive pulmonary disease, unspecified COPD type J44.9 ; 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 ; History of DVT (deep vein thrombosis) Z86.718 ; Chronic pain syndrome G89.4 ; Oxygen desaturation during sleep G47.34 ; Sleep apnea in adult G47.33 ; Gastroesophageal reflux disease without esophagitis K21.9 ; Essential hypertension I10 ; Primary insomnia F51.01 and Depression, unspecified depression type F32.9 [facility] [address] [id number][place] [id number] Dec, Dental caries K02.9 [facility] [id number] [place] [address] [id number] Dec, [facility] [address] [id number] [place] [id number] Dec, Dental examination Z01.20 [facility] [address] [id number] [place] [id number] November, Dental examination Z01.20 and Dental caries K02.9 [facility] [address] [id number], [place] [id number] Oct, [facility] [address] [id number] [place] [address] [id number] Oct, [facility] [address] [id number], [place] [id number] Sep, [facility] [address] [id number] [place] [address] [id number] Sep, [facility] [address] [id number] [place] [address] [id number] Sep, [facility] [address] [id number] [place] [address] [id number] Sep, Other chronic pain 338.29 [facility] [address] [id number], [place] [id number] Aug, Diabetes type 2, uncontrolled E11.65 and Morbid obesity due to excess calories E66.01 [facility] [address] [id number], [place] [id number] Aug, Hair loss L65.9 [facility] [address] [id number], [place] [id number] Aug, [facility] [address] [id number], [place] [id number] Jul, [facility] [address] [id number], [place] [id number] Jul, [facility] [address] [id number] [place] [address] [id number] Jun, [facility] [address] [id number] [place] [address] [id number] Jun, Hair loss L65.9 and Disorder of the skin and subcutaneous tissue, unspecified L98.9 [id number] [place] [address] [id number] May, Type 2 diabetes mellitus with other diabetic kidney complication E11.29 ; Type 2 diabetes mellitus with hyperglycemia E11.65 ; Morbid obesity due to excess calories E66.01 and Essential hypertension I10 [place] [id number] [place] [address] [id number] May, Diabetes type 2, uncontrolled E11.65 ; Encounter for immunization Z23 and Morbid obesity due to excess calories E66.01 [place] [id number] [place] [address] [id number] May, [facility] [address] [address] Apr, [address] [id number] Apr, Hyperglycemia R73.[address] [id number] Apr, [address] [id number] Apr, Depression F32.9 ; Encounter for immunization Z23 ; Hyperglycemia R73.9 and Anemia in other chronic diseases classified elsewhere D63.8 [facility] [address] [place] [address] [id number] Mar, [id number] [place] [address] [id number] Feb, Positive occult stool blood test 792.1 [place] [id number] [place] [address] [id number] Feb, Depression 311 ; Other chronic pain 338.29 and Diabetes with renal manifestations, type II or unspecified type, not stated as uncontrolled 250.40 [facility] [id number] [place] [address] Feb, Occult blood in stools 792.[id number] [place] [address] [id number] Feb, Anemia 285.9 ; Occult blood positive stool 792.1 ; Unspecified essential hypertension 401.9 and Other chronic pain 338.29 [facility] [id number], [place] [id number] Feb, [facility] [id number] [place] [address] [id number] Feb, Anemia 285.9 [facility] [id number], [place] [id number] Feb, [facility] [id number] [place] [address] [id number] Feb, [facility] [id number] [place] [address] [id number] Feb, Diabetes with renal manifestations, type II or unspecified type, not stated as uncontrolled 250.40 ; Other chronic pain 338.29 ; Unspecified essential hypertension 401.9 ; Anemia 285.9 and Depression 311 [facility] [id number] [place] [address] [id number] Jan, [facility] [id number] [place] [address] [id number] Jan, Anemia 285.9 and Follow up V67.9 [facility] [id number], [place] [id number] Jan, [facility] [id number] [place] [address] [id number] Jan, [facility] [id number] [place] [address] [id number] Jan, [facility] [id number] [place] [address] [id number] Dec, [facility] [address]00565100[place], [place] [address] Oct, [facility] [id number] [place] [address] Oct, [facility] [id number] [place] [address] Sep, [facility] [address] [id number], [place] [id number] Sep, [facility] [id number] [place] [address] Sep, [facility] [address] [id number], [place] [id number] Aug, [facility] [place] [facility] [address] [facility] [id number], [place] [address] Aug, [facility] [place] [facility] [address] [facility] [id number], [place] [address] Aug, [facility] [place] [address] [id number], [place] [id number] Aug, [facility] [place] [facility] [address] [facility] [id number] [place] [address] Aug, [facility] [place] [facility] [address] [id number], [place] [address] Aug, [facility] [place] [address] [id number], [place] [id number] Aug, [facility] [place] [facility] [address]00565100[place], [place] [address] Aug, [facility] [place] [address] [facility] [id number], [place] [id number] Jul, [facility] [place] [facility] [address]00565100[place], [place] [address] Jul, [facility] [place] [facility] [address] [id number], [place] [address] Jul, [facility] [place] [address] [id number], [place] [id number] Jul, [facility] [place] [facility] [address] [facility] [id number][place] [address] Jul, [facility] [place] [address] [facility] [id number], [place] [id number] Jul, [facility] [place] [facility] [address] [facility] [id number][place] [address] Jul, [facility] [place] [address] [id number], [place] [id number] Jun, [facility] [place] [address] [facility] [id number], [place] [id number] Jun, [facility] [place] [facility] [address] [facility] [id number] [place] [address] Jun, [facility] [place] [facility] [address] [facility] [id number] [place] [address] Jun, [facility] [place] [address] [facility] [id number], [place] [id number] Jun, [facility] [place] [facility] [address] [facility] [id number][place] [address] Jun, [facility] [place] [address] [facility] [id number], [place] [id number] May, [facility] [place] [facility] [address] [id number], [place] [address] May, [facility] [place] [facility] [address]00565100[place], [place] [address] May, [facility] [place] [address] [facility] [id number], [place] [id number] Apr, [facility] [place] [facility] [address] [facility] [id number], [place] [address] Apr, [facility] [place] [address] [facility] [id number], [place] [id number] Apr, [facility] [place] [address] [facility] [id number], [place] [id number] Apr, [facility] [place] [facility] [address] [facility] [id number], [place] [address] Apr, [facility] [place] [facility] [address] [facility] [id number], [place] [address] Apr, [facility] [place] [address] [facility] [id number], [place] [id number] Mar, [facility] [place] [facility] [address] [facility] [id number][place] [address] Mar, [facility] [place] [address] [facility] [id number], [place] [id number] Mar, [facility] [place] [facility] [address] [id number] [place] [address] Mar, [facility] [place] [address] [id number] [place] [id number] Mar, [facility] [place] [facility] [address] [facility] [id number] [place] [address] Mar, [facility] [place] [address] [id number] [place] [id number] Mar, [facility] [place] [facility] [address] [id number] [place] [address] Mar, [facility] [place] [address] [id number] [place] [id number] Mar, [facility] [place] [facility] [address] [facility] [id number] [place] [address] Mar, [facility] [place] [address] [facility] [id number] [place] [id number] Feb, [facility] [place] [facility] [address] [facility] [id number], [place] [address] Feb, [facility] [place] [address] [facility] [id number], [place] 503879396 Jan, [facility] [place] [facility] [address] [facility] [id number][place] [address] Jan, [facility] [place] [address] [facility] [id number] [place] [id number] Jan, [facility] [place] [facility] [address] [facility] [id number], [place] [address] Jan, [facility] [place] [address] [facility] [id number], [place] [id number] Jan, [facility] [place] [facility] [address] [facility] [id number] [place] [address] Jan, [facility] [place] [facility] [address] [facility] [id number], [place] [address] Dec, [facility] [place] [facility] [address] [facility] [id number], [place] [address] Dec, [facility] [address] [id number] [place] [id number] November, [facility] [place] [facility] [address] [id number] [place] [address] November, [facility] [address] [id number] [place] [id number] November, [facility] [place] [facility] [address] [id number] [place] [address] November, [facility] [address] [id number] [place] [id number] Oct, [facility] [place] [facility] [address] [id number] [place] [address] Oct, [facility] [place] [facility] [address] [facility] [id number] [place] [address] Oct, [facility] [place] [facility] [address] [facility] [id number] [place] [address] Oct, [facility] [place] [facility] [address] [id number] [place] [address] Oct, [facility] [place] [facility] [address] [facility] [id number] [place] [address] Oct, [facility] [place] [address] [id number] [place] [id number] Sep, [facility] [place] [address] [id number] [place] [id number] Sep, [facility] [place] [facility] [address] [id number] [place] [address] Sep, [facility] [place] [facility] [address] [id number] [place] [address] Sep, [facility] [place] [address] [id number] [place] [id number] Sep, [facility] [place] [facility] [address] [facility] [id number] [place] [address] Sep, [facility] [place] [facility] [address] [facility] [id number], [place] [address] Aug, [facility] [place] [facility] [address] [facility] [id number], [place] [address] Aug, [facility] [place] [address] [facility] [id number], [place] [id number] Aug, [facility] [place] [address] [facility] [id number] [place] [id number] Aug, [facility] [place] [facility] [address] [facility] [id number], [place] [address] Aug, [facility] [place] [address] [facility] [id number] [place] [id number] Aug, [facility] [place] [facility] [address]00565100[place], [place] [address] Aug, [facility] [place] [address] [id number], [place] [id number] Aug, [facility] [place] [facility] [address]00565100[place], [place] [address] Aug, [facility] [place] [address] [facility] [id number], [place] 191748815 Aug, [facility] [place] [facility] [address]00565100[place], [place] [address] Aug, [facility] [place] [address] [id number], [place] 837765536 Aug, [facility] [place] [facility] [address]00565100[place], [place] [address] Aug, [facility] [place] [facility] [address] [facility] [id number], [place] [address] Jul, [facility] [place] [address] [facility] [id number], [place] 532846360 Jun, [facility] [place] [facility] [address] [id number] [address] Jun, [facility] [place] [facility] [address]00565100[place], [place] [address] Jun, [facility] [place] [facility] [address] [id number] [place] [address] Jun, [facility] [place] [address] [facility] [id number], [place] 569716706 Jun, [facility] [place] [facility] [address] [id number] [place] [address] Jun, [facility] [place] [facility] [address] [facility] [id number][place] [address] Jun, [facility] [place] [address] [facility] [id number] [place] 800918153 Jun, [facility] [place] [facility] [address] [facility] [id number][place] [address] Jun, [facility] [place] [facility] [address] [id number], [place] [address] May, [facility] [place] [address] [id number], [place] 061071583 May, [facility] [place] [facility] [address] [id number], [place] [address] May, [facility] [place] [facility] [address] [id number], [place] [address] May, [facility] [place] [facility] [address] [id number], [place] [address] May, [facility] [place] [facility] [address] [facility] [id number], [place] [address] May, [facility] [place] [address] [facility] [id number], [place] 371240457 May, [facility] [place] [facility] [address] [facility] [id number], [place] [address] May, [facility] [place] [address] [facility] [id number], [place] [id number] May, [facility] [place] [facility] [address] [facility] [id number], [place] [address] May, [facility] [place] [address] [facility] [id number], [place] 648759580 Apr, [facility] [place] [facility] [address] [facility] [id number], [place] [address] Apr, [facility] [place] [facility] [address] [facility] [id number][place] [address] Apr, [facility] [address]00565100[place], [place] 916450096 Apr, [facility] [place] [facility] [address] [facility] [id number][place] [address] Apr, [facility] [place] [facility] [address]00565100[place], [place] [address] Apr, [facility] [place] [id number], [place] 890743154 Apr, [facility] [place] [facility] [address]00565100[place], [place] [address] Apr, [facility] [place] [facility] [address] [facility] [id number], [place] [address] Apr, [facility] [place] [facility] [address]00565100[place], [place] [address] Apr, [facility] [place] [id number], [place] 642721138 Apr, [facility] [place] [facility] [address] [facility] [id number], [place] [address] Apr, [facility] [place] [id number], [place] 872948098 Apr, [facility] [place] [facility] [address] [facility] [id number], [place] [address] Apr, [facility] [place] [address] [facility] [id number], [place] [id number] Apr, [facility] [place] [facility] [address]00565100[place], [place] [address] Apr, [facility] [place] [facility] [address] [facility] [id number], [place] [address] Apr, [facility] [address] [facility] [id number], [place] [address] Apr, [facility] [place] [address] [id number], [place] 271143538 Apr, [facility] [address] [facility] [id number], [place] [address] Mar, [facility] [address] [facility] [id number], [place] [address] Mar, [facility] [place] [address] [id number] [place] [id number] Mar, [facility] [place] [address] [id number] [place] 107048646 Mar, [facility] [place] [address] [id number] [place] [id number] Mar, [facility] [place] [address] [id number] [place] [id number] Feb, [facility] [place] [address] [id number] [place] 437819030 Feb, [facility] [place] [address] [id number] [place] [id number] Feb, [facility] [address] [facility] [id number], [place] [address] Feb, [facility] [place] [address] [id number], [place] 558984398 Feb, [facility] [address] [id number] [place] [id number] Feb, [facility] [place] [address] [id number] [place] 520400067 Feb, [facility] [place] [address] [id number] [place] [id number] Feb, [facility] [place] [address] [id number] [place] [id number] Feb, [facility] [place] [address] [id number] [place] 623972255 Jan, [facility] [place] [address] [id number] [place] 14[place] Jan, [facility] [place] [address] [id number] [place] 537757673 Jan, [facility] [place] [address] [id number] [place] 782641290 Jan, [facility] [place] [address] [id number] [place] 741722929 Jan, [facility] [address]00565100[place], [place] [address] Jan, [facility] [place] [address] [id number] [place] [id number] Jan, [facility] [place] [address] [id number] [place] 522471749 Jan, [facility] [place] [address] [id number] [place] 646953401 Dec, [facility] [place] [address] [id number] [place] 343135669 November, [facility] [place] [address] [id number] [place] 037969187 November, [facility] [place] [address] [id number] [place] 334242445 November, [facility] [place] [address] [id number] [place] 737621517 November, [facility] [place] [address] [id number] [place] 417065640 November, [facility] [place] [address] [id number] [place] [id number] November, [facility] [place] [address] [id number] [place] [id number] Jul, [facility] [place] [address] [id number] [place] [id number] Jul, [facility] [place] [address] [id number] [place] [id number] Jul, [facility] [place] [address] [id number] [place] [id number] Jun, [facility] [place] [address] [address] Jun, [facility] [place] [address] [id number][place] [id number] May, [facility] [address] [facility] [id number] [address] May, [facility] [place] [address] [id number][place] [id number] May, [facility] [address] [facility] [id number], [place] [address] May, [facility] [place] [address] [id number][place] [id number] May, [facility] [address] [facility] [id number][place] [address] May, [facility] [place] [address] [facility] [id number][place] [id number] Apr, [facility] [id number], [place] [address] Apr, [facility] [address] [facility] [id number], [place] [address] 18 Apr, 2012 [facility] [place] [address] [id number][place] [id number] Apr, [facility] [place] [address] [id number][place] [id number] Apr, [facility] [address] [facility] [id number], [place] [address] Apr, [facility] [address] [facility] [id number], [place] [address] Apr, [facility] [place] [address] [id number], [place] [id number] Apr, [facility] [address] [facility] [id number][place] [address] 10 Apr, 2012 [facility] [place] [address] [id number], [place] [id number] 09 Apr, 2012 [facility] [place] [address] [id number] [place] [id number] Apr, [facility] [place] [address] [id number] [place] [id number] Mar, [facility] [place] [address] [id number] [place] [id number] Feb, [facility] [place] [address] [id number] [place] [id number] Jan, [facility] [place] [address] [id number] [place] [id number] Dec, [facility] [place] [address] [id number] [place] [id number] Dec, [facility] [place] [address] [id number] [place] [id number] Dec, [facility] [place] [address] [id number] [place] [id number] Dec, [facility] [place] [address] [id number] [place] [id number] Dec, [facility] [place] [address] [id number] [place] [id number] November, [facility] [place] [address] [id number] [place] [id number] November, [facility] [place] [address] [id number] [place] [id number] November, [facility] [place] [address] [facility] [id number], [place] [address] November, [facility] [place] [address] [id number] [place] [id number] November, [facility] [place] [address] [id number] [place] [id number] November, [facility] [place] [address] [id number] [place] [address] Oct, [facility] [place] [address] [id number] [place] [id number] Oct, [facility] [place] [address] [id number] [place] [id number] Oct, [facility] [place] [address] [id number] [place] [id number] Oct, [facility] [place] [address] [id number] [place] [id number] Oct, [facility] [place] [address] [id number] [place] [id number] Oct, [facility] [place] [address] [id number] [place] [id number] Sep, [facility] [place] [address] [id number] [place] [id number] Aug, [facility] [place] [address] [id number] [place] [id number] Aug, [facility] [place] [address] [id number] [place] [id number] Jul, [facility] [address] [facility] [id number], [place] [address] Jun, [facility] [address] [id number] [address] Jun, [facility] [id number], [place] [address] Jun, [facility] [id number], [place] [address] Jun, [facility] [id number], [place] [address] May, [facility] [id number], [place] [address] May, [facility] [address] [id number] [id number] Apr, [facility] [place] [facility] [id number] [address] Apr, [facility] [place] [facility] [id number], [place] [address] Apr, [facility] [place] [facility] [id number] [address] Feb, [facility] [place] [facility] [address] [id number] [place] [address] 15 Aug, 2010 [facility] [address] [id number] [place] [address] 18 Jul, 2010 [facility] [place] [facility] [address] [id number] [place] [address] 30 Jun, 2010 [facility] [address] [id number] [place] [address] 29 May, 2010 [facility] [place] [facility] [address] [id number] [place] [address] May, [facility] [address] [id number] [place] [address] May, [facility] [address] [facility] [id number] [place] [address] May, [facility] [address] [facility] [id number] [place] [address] May, [facility] [address] [id number] [place] [address] 16 Aug, 2009 [facility] [address] [facility] [id number] [place] [address] Jun, [facility] [address] [facility] [id number] [place] [address] Jun, [facility] [place] [facility] [address] [facility] [id number] [place] [address] Jun, [facility] [place] [facility] [address] [id number] [place] [address] 24 May, 2009 [facility] [place] [facility] [address] [id number] [place] [address] 28 Apr, 2009 [facility] [place] [facility] [address] [facility] [id number] [place] [address] Apr, [facility] [place] [facility] [address] [facility] [id number] [place] [address] Apr, [facility] [address] [facility] [id number], [place] [address] Jan, [facility] [address] [facility] [id number] [address] Oct, [facility] [address] [facility] [id number] [address] May, [facility] [address] [facility] [id number] [address] May, IMMUNIZATIONS No Known Immunizations SOCIAL HISTORY Never Assessed REASON FOR VISIT EMR-[facility] PLAN OF CARE VITAL [...] Dialysis [facility] 2012 -Dr. Simon now [facility] Medical History Colonoscopy (polyps 2 ) [...]
--- OUTSIDE RECORDS SUMMARY | 2018-12-28 17:49 | XMS REPORT ---
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 Active 308788256 Problem Chronic pain syndrome G89.4 Active 999965780 Problem Sleep apnea in adult G47.33 Active 96898398 Problem Diabetic polyneuropathy associated with type 2 diabetes mellitus E11.42 Active 56699734 Problem Primary insomnia F51.01 Active 8322515 Problem Chronic obstructive pulmonary disease, unspecified COPD type J44.9 Active 48895114 Problem Right carpal tunnel syndrome G56.01 Active 906094720527652 Problem Gastroesophageal reflux disease without esophagitis K21.9 Active 327754670 Problem 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 Active 638302051687715 Problem Chronic kidney disease, stage 4 (severe) N18.4 Active 974928072 Problem Type 2 diabetes mellitus with hyperglycemia E11.65 Active 005503271680765 Problem Psoriasis of scalp L40.9 Active 707776670 Problem Carpal tunnel syndrome, bilateral G56.03 Active 32450693207850405 Problem Depression, unspecified depression type F32.9 Active 72233578 Problem Type 2 diabetes mellitus with other diabetic kidney complication E11.29 Active 867980590 Problem Fibromyalgia M79.7 Active 984331320 Problem Oxygen desaturation during sleep G47.34 Active 811832213 Problem Anemia in other chronic diseases classified elsewhere D63.8 Active 884896668 Problem History of DVT (deep vein thrombosis) Z86.718 Active 612321802 Problem Paresthesia of right upper extremity R20.2 Active 38106059 Problem halfway 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 Active 622050911 Problem Supplemental oxygen dependent Z99.81 Active 048701591658 Problem Bilateral lower extremity edema R60.0 Active 242730841 ALLERGIES No Information ENCOUNTERS Encounter Location Date Diagnosis [facility] [address], [place] [address] Apr, [facility] [address], [place] [address] Feb, [facility] [address] [address] Feb, [facility] [address], [place] [address] Jan, [facility] [address], [place] [address] Jan, [facility] [address] [address] Jan, [address] [id number] Jan, [facility] [address], [place] [address] Jan, [facility] [address] [address] Jan, [facility] [address], [place] [address] Jan, Essential hypertension I10 [facility] [address], [place] [address] Jan, Chronic obstructive pulmonary disease, unspecified COPD type J44.9 [facility] [id number] [address] Jan, [facility] [id number] [address] Jan, [facility] [id number] [address] Jan, Type 2 diabetes mellitus with other diabetic kidney complication E11.29 ; Anemia in other chronic diseases classified elsewhere D63.8 ; Chronic obstructive pulmonary disease, unspecified COPD type J44.9 and BMI 60.0-69.9, adult Z68.44 [facility] [address], [place] [address] Jan, [facility] [id number] [place] [address] Jan, [facility] [id number] [id number] Jan, [facility] [id number] [place] [id number] Dec, [facility] [id number] [place] [id number] Dec, [facility] [address] [place] [id number] Dec, Essential hypertension I10 ; Type 2 diabetes mellitus with other diabetic kidney complication E11.29 ; Depression, unspecified depression type F32.9 ; Supplemental oxygen dependent Z99.81 ; Chronic pain syndrome G89.4 ; Fibromyalgia M79.7 ; Carpal tunnel syndrome, bilateral G56.03 and Chronic kidney disease, stage 4 (severe) N18.4 [facility] [id number] [place] [address] Dec, Essential hypertension I10 [facility] [id number] [place] [address] November, Type 2 diabetes mellitus with other diabetic kidney complication E11.29 [facility] [id number] [place] [address] November, Chronic pain syndrome G89.4 [facility] [address], [place] [address] November, [facility] [id number] [place] [address] November, [facility] [id number] [place] [address] November, [facility] [address] [place] [address] Oct, Type 2 diabetes mellitus with other diabetic kidney complication E11.29 [place] [address], [place] [address] Oct, Primary insomnia F51.01 [facility] [id number] [id number] Oct, Bilateral lower extremity edema R60.0 [facility] [address] [place] [address] Oct, [facility] [address] [place] [address] Sep, Type 2 diabetes mellitus with other diabetic kidney complication E11.29 and Chronic obstructive pulmonary disease, unspecified COPD type J44.9 [facility] [address] [place] [address] 15 Aug, 2017 Type 2 diabetes mellitus with other diabetic kidney complication E11.29 [address] [place] [address] 12 Aug, 2017 Gastroesophageal reflux disease without esophagitis K21.9 ; halfway current use of anticoagulant Z79.01 ; Chronic pain syndrome G89.4 ; Essential hypertension I10 and Type 2 diabetes mellitus with other diabetic kidney complication E11.29 [facility] [address], [place] [address] 08 Aug, 2017 Chronic pain syndrome G89.4 [facility] [address], [place] [address] Aug, Type 2 diabetes mellitus with other diabetic kidney complication E11.29 [facility] [address], [place] [address] Jul, Diabetic polyneuropathy associated with type 2 diabetes mellitus E11.42 [facility] [address], [place] [address] Jul, Primary insomnia F51.01 [facility] [address], [place] [address] Jul, [facility] [address], [place] [address] Jul, Type 2 diabetes mellitus with other diabetic kidney complication E11.29 and Chronic obstructive pulmonary disease, unspecified COPD type J44.9 [facility] [address], [place] [address] 08 Jul, 2017 Type 2 diabetes mellitus with other diabetic kidney complication E11.29 [facility] [id number] [place] [address] Jun, Type 2 diabetes mellitus with other diabetic kidney complication E11.29 [facility] [id number] [place] [address] 27 Jun, 2017 [facility] [id number] [place] [address] Jun, Chronic obstructive pulmonary disease, unspecified COPD type J44.9 [facility] [id number] [place] [address] May, Type 2 diabetes mellitus with other diabetic kidney complication E11.29 [facility] [address], [place] [address] May, terminal clerk current use of 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 Z79.01 and Essential hypertension I10 [facility] [id number] [place] [address] May, Anemia in other chronic diseases classified elsewhere D63.8 ; Chronic obstructive pulmonary disease, unspecified COPD type J44.9 ; Oxygen desaturation during sleep G47.34 ; Sleep apnea in adult G47.33 and Supplemental oxygen dependent Z99.81 [address] [place] [address] May, Type 2 diabetes mellitus with other [...] legs R60.0 and Supplemental oxygen dependent Z99.81 [facility] [address] [address] May, [facility] [id number] [place] [address] May, Essential hypertension I10 and Gastroesophageal reflux disease without esophagitis K21.9 [facility] [address] [address] May, [facility] [address] [address] May, Type 2 diabetes mellitus with other diabetic kidney complication E11.29 and halfway current use of anticoagulant Z79.01 [facility] [id number] [place] [address] Apr, Chronic pain syndrome G89.4 and Essential hypertension I10 [facility] [id number] [place] [address] Apr, Type 2 diabetes mellitus with other diabetic kidney complication E11.29 [facility] [id number] [place] [address] Apr, Type 2 diabetes mellitus with other diabetic kidney complication E11.29 [facility] [id number] [place] [address] Apr, Essential hypertension I10 [facility] [id number] [place] [address] Apr, Gastroesophageal reflux disease without esophagitis K21.9 [facility] [id number] [place] [address] Apr, Type 2 diabetes mellitus with other diabetic kidney complication E11.29 [facility] [id number] [place] [address] Apr, Type 2 diabetes mellitus with other diabetic kidney complication E11.29 and terminal clerk current use of anticoagulant Z79.01 [facility] [address] [place] [address] 27 Mar, 2017 Encounter for immunization Z23 and Preoperative examination Z01.818 [facility] [id number] [place] [address] Mar, [facility] [id number] [place] [address] Mar, Type 2 diabetes mellitus with other diabetic kidney complication E11.29 [facility] [id number] [place] [address] 08 Mar, 2017 Type 2 diabetes mellitus with other diabetic kidney complication E11.29 [facility] [id number] [place] [address] Mar, Gastroesophageal reflux disease without esophagitis K21.9 [facility] [id number] [place] [address] Mar, Essential hypertension I10 [facility] [id number] [place] [address] Feb, terminal clerk current use of anticoagulant Z79.01 [facility] [id number] [place] [address] Feb, Type 2 diabetes mellitus with other diabetic kidney complication E11.29 [facility] [id number] [place] [address] Feb, Type 2 diabetes mellitus with other diabetic kidney complication E11.29 [facility] [id number] [place] [address] Feb, Type 2 diabetes mellitus with other diabetic kidney complication E11.29 [facility] [id number] [place] [address] Feb, Gastroesophageal reflux disease without esophagitis K21.9 [facility] [id number] [place] [address] Feb, Type 2 diabetes mellitus with other diabetic kidney complication E11.29 [facility] [address], [place] [address] Feb, halfway current use of anticoagulant Z79.01 [facility] [address], [place] [address] Jan, Type 2 diabetes mellitus with other diabetic kidney complication E11.29 [facility] [address], [place] [address] Jan, Type 2 diabetes mellitus with other diabetic kidney complication E11.29 [facility] [address], [place] [address] Jan, Chronic pain syndrome G89.4 [facility] [address], [place] [address] Jan, [facility] [address], [place] [address] Jan, [facility] [address], [place] [address] Jan, [facility] [address] [place] [address] Jan, [facility] [address], [place] [address] Jan, Primary insomnia F51.01 ; Type 2 diabetes mellitus with other diabetic kidney complication E11.29 ; Chronic pain syndrome G89.4 and Essential hypertension I10 [facility] [address], [place] [address] Jan, Primary insomnia F51.01 [facility] [address], [place] [address] Jan, Type 2 diabetes mellitus with other diabetic kidney complication E11.29 [facility] [address], [place] [address] Jan, [facility] [id number] [place] [address] Jan, Chronic obstructive pulmonary disease, unspecified COPD type J44.9 [facility] [id number] [place] [address] Jan, Essential hypertension I10 ; Type 2 diabetes mellitus with other diabetic kidney complication E11.29 ; Chronic obstructive pulmonary disease, unspecified COPD type J44.9 ; Chronic kidney disease, stage 4 (severe) N18.4 ; Right carpal tunnel syndrome G56.01 ; 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 ; halfway (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 and Diabetic polyneuropathy associated with type 2 diabetes mellitus E11.42 [facility] [id number] [place] [address] Jan, Gastroesophageal reflux disease without esophagitis K21.9 [facility] [id number] [place] [address] Dec, [facility] [id number] [place] [address] Dec, [facility] [id number] [place] [address] Dec, halfway current use of anticoagulant Z79.01 ; Chronic pain syndrome G89.4 and Essential hypertension I10 [facility] [id number] [place] [address] Dec, [facility] [id number] [place] [address] Dec, Type 2 diabetes mellitus with other diabetic kidney complication E11.29 [facility] [address], [place] [address] Dec, [facility] [id number] [place] [address] Dec, Gastroesophageal reflux disease without esophagitis K21.9 [facility] [id number] [place] [address] November, Type 2 diabetes mellitus with other diabetic kidney complication E11.29 [facility] [address], [place] [address] November, [facility] [id number] [place] [address] November, Type 2 diabetes mellitus with other diabetic kidney complication E11.29 [facility] [id number] [place] [address] November, [facility] [id number] [place] [address] November, Type 2 diabetes mellitus with other diabetic kidney complication E11.29 [facility] [id number] [place] [address] November, [facility] [id number] [place] [address] Oct, Essential hypertension I10 [facility] [id number] [place] [address] Oct, Psoriasis of scalp L40.9 [facility] [id number] [place] [address] Oct, Essential hypertension I10 and Chronic pain syndrome G89.4 [facility] [address], [place] [address] Oct, [facility] [address], [place] [address] Sep, Type 2 diabetes mellitus with other diabetic kidney complication E11.29 [facility] [address], [place] [address] Sep, [facility] [id number] [place] [address] Sep, Type 2 diabetes mellitus with other diabetic kidney complication E11.29 [facility] [address], [place] [address] 20 Mar, 2017 Type 2 diabetes mellitus with other diabetic kidney complication E11.29 [facility] [id number] [place] [address] 09 Sep, 2017 Type 2 diabetes mellitus [...] extremity R20.2 and Psoriasis of scalp L40.9 [facility] [id number] [place] [address] Sep, [address] [address] Aug, Essential hypertension I10 [facility] [address] [address] Aug, History of DVT (deep vein thrombosis) Z86.718 [facility] [id number] [place] [address] Aug, [facility] [id number] [place] [address] Jul, [facility] [id number] [place] [address] Jul, [facility] [id number] [place] [address] Jul, halfway current use of anticoagulant Z79.01 ; Chronic pain syndrome G89.4 and Chronic kidney disease, stage 4 (severe) N18.4 [facility] [id number] [place] [address] Jul, [place] [address] [place] [address] Jul, [facility] [address] [place] [address] Jul, [facility] [id number] [place] [address] Jul, [facility] [id number] [place] [address] Jul, [facility] [id number] [place] [address] Jul, Type 2 diabetes mellitus with other diabetic kidney complication E11.29 [place] [id number] [place] [address] Jul, History of DVT (deep vein thrombosis) Z86.718 [facility] [id number] [place] [address] Jun, [facility] [id number] [place] [address] Jun, History of DVT (deep vein thrombosis) Z86.718 [place] [id number] [place] [address] 15 Jun, 2016 Post traumatic stress disorder (PTSD) F43.10 [place] [id number] [place] [address] 07 Jun, 2016 Type 2 diabetes mellitus [...] pain M79.641 and Right wrist pain M25.531 [facility] [id number] [place] [address] May, [facility] [id number] [place] [address] May, [facility] [address] [address] May, [facility] [id number] [place] [address] May, [facility] [id number] [place] [address] May, Anemia in other chronic diseases classified elsewhere D63.8 [facility] [address] [address] May, [facility] [id number] [place] [address] Apr, [facility] [id number] [place] [address] 27 Mar, 2016 Dermatofibroma D23.9 [facility] [id number] [place] [address] 20 Mar, 2016 [facility] [id number] [place] [address] 14 Mar, 2016 Chronic pain syndrome G89.4 [facility] [id number] [place] [address] 09 Mar, 2016 [facility] [id number] [place] [address] 07 Mar, 2016 [facility] [id number] [place] [address] 06 Mar, 2016 [facility] [address] [place] [address] Feb, [facility] [address], [place] [address] Feb, [facility] [address], [place] [address] Feb, [facility] [address] [place] [address] Feb, [facility] [address] [place] [address] Feb, [facility] [address] [place] [address] Feb, [facility] [address] [place] [address] Feb, Type 2 diabetes mellitus with other [...] failure, chronic, stage 4 (severe) N18.4 [facility] [address] [address] Feb, Skin tags, multiple acquired L91.8 [facility] [id number] [place] [address] Jan, [facility] [address] [id number] Jan, Dental examination Z01.20 [facility] [id number] [place] [address] Jan, [facility] [address] [place] [id number] [place] [address] Jan, Type 2 diabetes mellitus with other [...] Renal failure, chronic, stage 4 (severe) N18.4 [address] [place] [address] Dec, Diabetes type 2, uncontrolled E11.65 [place] [id number] [place] [address] Dec, [place] [id number] [place] [address] Dec, Type 2 diabetes mellitus with other [...] F51.01 and Depression, unspecified depression type F32.9 [facility] [address] [id number] [id number] Dec, Dental caries K02.9 [facility] [id number] [place] [id number] Dec, [facility] [address] [id number] [place] [id number] Dec, Dental examination Z01.20 [facility] [address] [id number] [place] [id number] November, Dental examination Z01.20 and Dental caries K02.9 [facility] [address] [id number] [id number] Oct, [facility] [id number] [place] [id number] Oct, [facility] [address] [id number] [id number] Sep, [facility] [id number] [place] [id number] Sep, [facility] [facility] [id number] [place] [address] [id number] Sep, [facility] [address] [id number] [place] [address] [id number] Sep, Other chronic pain 338.29 [facility] [address] [id number], [place] [id number] Aug, Diabetes type 2, uncontrolled E11.65 and Morbid obesity due to excess calories E66.01 [facility] [address] [id number], [place] [id number] Aug, Hair loss L65.9 [facility] [address] [id number], [place] [id number] Aug, [facility] [address] [id number], [place] [id number] Jul, [facility] [address] [id number], [place] [id number] Jul, [facility] [address] [id number] [place] [address] [id number] Jun, [facility] [id number] [place] [address] [id number] Jun, Hair loss L65.9 and Disorder of the skin and subcutaneous tissue, unspecified L98.9 [facility] [place] [address] [id number] May, Type 2 diabetes mellitus with other diabetic kidney complication E11.29 ; Type 2 diabetes mellitus with hyperglycemia E11.65 ; Morbid obesity due to excess calories E66.01 and Essential hypertension I10 [place] [id number] [place] [address] [id number] May, Diabetes type 2, uncontrolled E11.65 ; Encounter for immunization Z23 and Morbid obesity due to excess calories E66.01 [place] [id number] [place] [address] [id number] May, [facility] [address] [address] Apr, [address] [id number] Apr, Hyperglycemia R73.[address] [id number] Apr, [address] [id number] Apr, Depression F32.9 ; Encounter for immunization Z23 ; Hyperglycemia R73.9 and Anemia in other chronic diseases classified elsewhere D63.8 [facility] [address] [place] [address] [id number] Mar, [address] [place] [address] [id number] Feb, Positive occult stool blood test 792.1 [place] [id number] [place] [address] [id number] Feb, Depression 311 ; Other chronic pain 338.29 and Diabetes with renal manifestations, type II or unspecified type, not stated as uncontrolled 250.40 [facility] [id number] [place] [address] Feb, Occult blood in stools 792.1 [address] [place] [address] [id number] Feb, Anemia 285.9 ; Occult blood positive stool 792.1 ; Unspecified essential hypertension 401.9 and Other chronic pain 338.29 [facility] [place] [id number], [place] [id number] Feb, [facility] [place] [id number] [place] [address] [id number] Feb, Anemia 285.9 [facility] [place] [id number], [place] [id number] Feb, [facility] [place] [id number] [place] [address] [id number] Feb, [facility] [place] [id number] [place] [address] [id number] Feb, Diabetes with renal manifestations, type II or unspecified type, not stated as uncontrolled 250.40 ; Other chronic pain 338.29 ; Unspecified essential hypertension 401.9 ; Anemia 285.9 and Depression 311 [facility] [place] [id number] [place] [address] [id number] Jan, [facility] [id number] [place] [address] [id number] Jan, Anemia 285.9 and Follow up V67.9 [facility] [place] [id number], [place] [id number] Jan, [facility] [id number] [place] [address] [id number] Jan, [facility] [place] [id number] [place] [address] [id number] Jan, [facility] [id number] [place] [address] [id number] Dec, [facility] [address]00565100[place], [place] [address] Oct, [facility] [id number] [place] [address] Oct, [facility] [id number] [place] [address] Sep, [facility] [address] [id number], [place] [id number] Sep, [facility] [id number] [place] [address] Sep, [facility] [address] [id number], [place] [id number] Aug, [facility] [place] [facility] [address] [facility] [id number], [place] [address] Aug, [facility] [place] [facility] [address] [facility] [id number], [place] [address] Aug, [facility] [address] [id number], [place] [id number] Aug, [facility] [place] [facility] [address] [facility] [id number] [place] [address] Aug, [facility] [place] [facility] [address] [id number], [place] [address] Aug, [facility] [address] [id number], [place] [id number] Aug, [facility] [place] [facility] [address]00565100[place], [place] [address] Aug, [facility] [address] [facility] [id number], [place] [id number] Jul, [facility] [place] [facility] [address]00565100[place], [place] [address] Jul, [facility] [place] [facility] [address] [id number], [place] [address] Jul, [facility] [address] [id number], [place] [id number] Jul, [facility] [place] [facility] [address] [facility] [id number], [place] [address] Jul, [facility] [address] [facility] [id number], [place] [id number] Jul, [facility] [place] [facility] [address] [facility] [id number], [place] [address] Jul, [facility] [address] [id number], [place] [id number] Jun, [facility] [address] [facility] [id number], [place] [id number] Jun, [facility] [place] [facility] [address] [facility] [id number] [place] [address] Jun, [facility] [place] [facility] [address] [facility] [id number] [place] [address] Jun, [facility] [address] [facility] [id number], [place] [id number] Jun, [facility] [place] [facility] [address] [facility] [id number], [place] [address] Jun, [facility] [address] [facility] [id number], [place] [id number] May, [facility] [place] [facility] [address] [id number], [place] [address] May, [facility] [place] [facility] [address]00565100[place], [place] [address] May, [facility] [address] [facility] [id number], [place] [id number] Apr, [facility] [place] [facility] [address] [facility] [id number], [place] [address] Apr, [facility] [address] [facility] [id number], [place] [id number] Apr, [facility] [address] [facility] [id number], [place] [id number] Apr, [facility] [place] [facility] [address] [facility] [id number], [place] [address] Apr, [facility] [place] [facility] [address] [facility] [id number], [place] [address] Apr, [facility] [address] [facility] [id number], [place] [id number] Mar, [facility] [place] [facility] [address] [facility] [id number], [place] [address] Mar, [facility] [address] [facility] [id number], [place] [id number] Mar, [facility] [place] [facility] [address] [id number] [place] [address] Mar, [facility] [address] [id number] [place] [id number] Mar, [facility] [place] [facility] [address] [facility] [id number] [place] [address] Mar, [facility] [address] [id number] [place] [id number] Mar, [facility] [place] [facility] [address] [id number] [place] [address] Mar, [facility] [address] [id number] [place] [id number] Mar, [facility] [place] [facility] [address] [facility] [id number] [place] [address] Mar, [facility] [address] [facility] [id number] [place] [id number] Feb, [facility] [place] [facility] [address] [facility] [id number], [place] [address] Feb, [facility] [address] [facility] [id number], [place] 605469696 Jan, [facility] [place] [facility] [address] [facility] [id number], [place] [address] Jan, [facility] [address] [facility] [id number] [place] [id number] Jan, [facility] [place] [facility] [address] [facility] [id number], [place] [address] Jan, [facility] [address] [facility] [id number], [place] [id number] Jan, [facility] [place] [facility] [address] [facility] [id number] [place] [address] Jan, [facility] [place] [facility] [address] [facility] [id number], [place] [address] Dec, [facility] [place] [facility] [address] [facility] [id number], [place] [address] Dec, [facility] [address] [id number] [place] [id number] November, [facility] [place] [facility] [address] [id number] [place] [address] November, [facility] [address] [id number] [place] [id number] November, [facility] [place] [facility] [address] [id number] [place] [address] November, [facility] [address] [id number] [place] [id number] Oct, [facility] [place] [facility] [address] [id number] [place] [address] Oct, [facility] [place] [facility] [address] [facility] [id number] [place] [address] Oct, [facility] [place] [facility] [address] [facility] [id number] [place] [address] Oct, [facility] [place] [facility] [address] [id number] [place] [address] Oct, [facility] [place] [facility] [address] [facility] [id number] [place] [address] Oct, [facility] [address] [id number] [place] [id number] Sep, [facility] [address] [id number] [place] [id number] Sep, [facility] [place] [facility] [address] [id number] [place] [address] Sep, [facility] [place] [facility] [address] [id number] [place] [address] Sep, [facility] [address] [id number] [place] [id number] Sep, [facility] [place] [facility] [address] [facility] [id number] [place] [address] Sep, [facility] [place] [facility] [address] [facility] [id number], [place] [address] Aug, [facility] [place] [facility] [address] [facility] [id number], [place] [address] Aug, [facility] [address] [facility] [id number], [place] [id number] Aug, [facility] [address] [facility] [id number] [place] [id number] Aug, [facility] [place] [facility] [address] [facility] [id number], [place] [address] Aug, [facility] [address] [facility] [id number] [place] [id number] Aug, [facility] [place] [facility] [address]00565100[place], [place] [address] Aug, [facility] [address] [id number], [place] [id number] Aug, [facility] [place] [facility] [address]00565100[place], [place] [address] Aug, [facility] [address] [facility] [id number], [place] [id number] Aug, [facility] [place] [facility] [address]00565100[place], [place] [address] Aug, [facility] [address] [id number], [place] 758589389 Aug, [facility] [place] [facility] [address]00565100[place], [place] [address] Aug, [facility] [place] [facility] [address] [facility] [id number], [place] [address] Jul, [facility] [address] [facility] [id number], [place] 816025696 Jun, [facility] [place] [facility] [address] [id number], [place] [address] Jun, [facility] [place] [facility] [address]00565100[place], [place] [address] Jun, [facility] [place] [facility] [address] [id number] [place] [address] Jun, [facility] [address] [facility] [id number], [place] [id number] Jun, [facility] [place] [facility] [address] [id number] [address] Jun, [facility] [place] [facility] [address] [facility] [id number], [place] [address] Jun, [facility] [address] [facility] [id number] [place] [id number] Jun, [facility] [place] [facility] [address] [facility] [id number], [place] [address] Jun, [facility] [place] [facility] [address] [id number], [place] [address] May, [facility] [address] [id number], [place] [id number] May, [facility] [place] [facility] [address] [id number], [place] [address] May, [facility] [place] [facility] [address] [id number], [place] [address] May, [facility] [place] [facility] [address] [id number], [place] [address] May, [facility] [place] [facility] [address] [facility] [id number], [place] [address] May, [facility] [address] [facility] [id number], [place] [id number] May, [facility] [place] [facility] [address] [facility] [id number], [place] [address] May, [facility] [address] [facility] [id number], [place] [id number] May, [facility] [place] [facility] [address] [facility] [id number], [place] [address] May, [facility] [address] [facility] [id number], [place] 016745858 Apr, [facility] [place] [facility] [address] [facility] [id number], [place] [address] Apr, [facility] [place] [facility] [address] [facility] [id number], [place] [address] Apr, [facility] [place] [address]00565100[place], [place] 539012745 Apr, [facility] [place] [facility] [address] [facility] [id number], [place] [address] Apr, [facility] [place] [facility] [address]00565100[place], [place] [address] Apr, [facility] [id number], [place] 985805967 Apr, [facility] [place] [facility] [address]00565100[place], [place] [address] Apr, [facility] [place] [facility] [address] [facility] [id number], [place] [address] Apr, [facility] [place] [facility] [address]00565100[place], [place] [address] Apr, [facility] [id number], [place] 280866065 Apr, [facility] [place] [facility] [address] [facility] [id number], [place] [address] Apr, [facility] [id number], [place] 607500279 Apr, [facility] [place] [facility] [address] [facility] [id number], [place] [address] Apr, [facility] [address] [facility] [id number], [place] [id number] Apr, [facility] [place] [facility] [address]00565100[place], [place] [address] Apr, [facility] [place] [facility] [address] [facility] [id number], [place] [address] Apr, [facility] [address] [facility] [id number], [place] [address] Apr, [facility] [address] [id number], [place] [id number] Apr, [facility] [address] [facility] [id number], [place] [address] Mar, [facility] [address] [facility] [id number], [place] [address] Mar, [facility] [address] [id number] [place] [id number] Mar, [facility] [address] [id number] [place] [id number] Mar, [facility] [address] [id number] [place] [id number] Mar, [facility] [address] [id number] [place] [id number] Feb, [facility] [address] [id number] [place] [id number] Feb, [facility] [address] [id number] [place] 630662976 Feb, [facility] [address] [facility] [id number], [place] [address] Feb, [facility] [address] [id number], [place] 729274357 Feb, [facility] [address] [id number] [place] 401531722 Feb, [facility] [address] [id number] [place] 364140188 Feb, [facility] [address] [id number] [place] [id number] Feb, [facility] [address] [id number] [place] [id number] Feb, [facility] [address] [id number] [place] 419807859 Jan, [facility] [place] [address] [id number] [place] 458770661 Jan, [facility] [place] [address] [id number] [place] [id number] Jan, [facility] [place] [address] [id number] [place] 551006373 Jan, [facility] [place] [address] [id number] [place] 821701420 Jan, [facility] [address]00565100[place], [place] [address] Jan, [facility] [place] [address] [id number] [place] 275488183 Jan, [facility] [place] [address] [id number] [place] 566330605 Jan, [facility] [address] [id number] [place] 273927863 Dec, [facility] [place] [address] [id number] [place] 920249834 November, [facility] [place] [address] [id number] [place] 985776317 November, [facility] [address] [id number] [place] 088418997 November, [facility] [address] [id number] [place] 077102343 November, [facility] [address] [id number] [place] [id number] November, [facility] [address] [id number] [place] [id number] November, [facility] [address] [id number] [place] 079222558 Jul, [facility] [address] [id number] [place] 577702432 Jul, [facility] [address] [id number] [place] 437085602 Jul, [facility] [address] [id number] [place] 056112023 Jun, [facility] [address]00565100[place], [place] [address] Jun, [facility] [address] [id number], [place] 182628643 May, [facility] [place] [facility] [address] [facility] [id number], [place] [address] May, [facility] [address] [id number], [place] 392291562 May, [facility] [place] [facility] [address] [facility] [id number], [place] [address] May, [facility] [address] [id number], [place] [id number] May, [facility] [place] [facility] [address] [facility] [id number], [place] [address] May, [facility] [address] [facility] [id number], [place] 500459168 Apr, [facility] [place] [facility] [address]00565100[place], [place] [address] Apr, [facility] [place] [facility] [address] [facility] [id number], [place] [address] 18 Apr, 2012 [facility] [address] [id number], [place] 985335419 Apr, [facility] [address] [id number], [place] [id number] Apr, [facility] [place] [facility] [address] [facility] [id number], [place] [address] Apr, [facility] [place] [facility] [address] [facility] [id number], [place] [address] Apr, [facility] [address] [id number], [place] [id number] Apr, [facility] [place] [facility] [address] [facility] [id number], [place] [address] 10 Apr, 2012 [facility] [place] [address] [id number][place] [id number] 09 Apr, 2012 [facility] [place] [address] [id number] [place] [id number] Apr, [facility] [place] [address] [id number] [place] [id number] Mar, [facility] [place] [address] [id number] [place] [id number] Feb, [facility] [place] [address] [id number] [place] [id number] Jan, [facility] [place] [address] [id number] [place] [id number] Dec, [facility] [place] [address] [id number] [place] [id number] Dec, [facility] [place] [address] [id number] [place] [id number] Dec, [facility] [place] [address] [id number] [place] [id number] Dec, [facility] [place] [address] [id number] [place] [id number] Dec, [facility] [place] [address] [id number] [place] [id number] November, [facility] [place] [address] [id number] [place] [id number] November, [facility] [place] [address] [id number] [place] [id number] November, [facility] [address] [facility] [id number], [place] [address] November, [facility] [place] [address] [id number] [place] [id number] November, [facility] [place] [address] [id number] [place] [id number] November, [facility] [place] [address] [id number] [place] [id number] Oct, [facility] [place] [address] [id number] [place] [id number] Oct, [facility] [place] [address] [id number] [place] [id number] Oct, [facility] [place] [address] [id number] [place] [id number] Oct, [facility] [place] [address] [id number] [place] [id number] Oct, [facility] [place] [address] [id number] [place] [id number] Oct, [facility] [place] [address] [id number] [place] [id number] Sep, [facility] [place] [address] [id number] [place] [id number] Aug, [facility] [place] [address] [id number] [place] [id number] Aug, [facility] [place] [address] [id number] [place] [id number] Jul, [facility] [place] [facility] [address] [facility] [id number], [place] [address] Jun, [facility] [place] [facility] [address] [id number], [place] [address] Jun, [facility] [place] [facility] [id number], [place] [address] Jun, [facility] [place] [facility] [id number], [place] [address] Jun, [facility] [place] [facility] [id number], [place] [address] May, [facility] [place] [facility] [id number], [place] [address] May, [facility] [place] [facility] [address] [id number], [place] [address] Apr, [facility] [place] [facility] [id number], [place] [address] Apr, [facility] [place] [facility] [id number], [place] [address] Apr, [facility] [place] [facility] [id number], [place] [address] Feb, [facility] [place] [facility] [address] [id number] [address] 15 Aug, 2010 [facility] [address] [id number] [place] [address] 18 Jul, 2010 [facility] [place] [facility] [address] [id number] [place] [address] 30 Jun, 2010 [facility] [address] [id number] [place] [address] 29 May, 2010 [facility] [place] [facility] [address] [id number] [place] [address] May, [facility] [address] [id number] [place] [address] May, [facility] [address] [facility] [id number] [place] [address] May, [facility] [address] [facility] [id number] [place] [address] May, [facility] [address] [id number] [place] [address] 16 Aug, 2009 [facility] [address] [facility] [id number] [place] [address] Jun, [facility] [address] [facility] [id number] [place] [address] Jun, [facility] [place] [facility] [address] [facility] [id number] [place] [address] Jun, [facility] [place] [facility] [address] [id number] [place] [address] 24 May, 2009 [facility] [place] [facility] [address] [id number] [place] [address] 28 Apr, 2009 [facility] [place] [facility] [address] [facility] [id number] [place] [address] Apr, [facility] [place] [facility] [address] [facility] [id number] [place] [address] Apr, [facility] [address] [facility] [id number] [address] Jan, [facility] [address] [facility] [id number], [place] [address] Oct, [facility] [address] [facility] [id number], [place] [address] May, [facility] [address] [facility] [id number], [place] [address] May, IMMUNIZATIONS No Known Immunizations SOCIAL HISTORY Never Assessed REASON FOR VISIT [facility] PLAN OF CARE VITAL SIGNS MEDICATIONS Medication Instructions Dosage Frequency Start Date End Date Duration Status Protonix 40 mg 1 tablet by Oral route 1 time per day Jun, Active trazodone 150 mg take 1 tablet by Oral route 1 time per day at bedtime Aug, Active metoprolol 50 mg take 1 tablet by Oral route 2 times per day (do not crush or chew) Jul, Active Fish Oil Concentrate 1000 mg 1 Capsule by Oral route 3 times per day2 in AM, 1 in PM Apr, Active Cipro 500 mg 1 tablet by Oral route every 12 hours for 10 day(s) Apr, Active Effexor XR 150 mg take 1 capsule by Oral route 1 time per day Sep, Active Vitamin A & D 1 Capsule by Oral route 1 time per day Vit A 5000IU & Vit D 400IU Mar, Active Melatonin 10 mg 2 Tablet by Oral route 1 time per dayat bedtime Dec, Active Ciprofloxacin 500 mg take 1 tablet (500 mg) by oral route every 12 hours for 7 days Mar, Active Gabapentin 600 mg take 1 tablet (600 mg) by oral route 3 times per day Aug, Active Multivitamin 2 Tablet by Oral route 1 Dec, Active amlodipine 10 mg take 1 tablet by Oral route 1 time per day Sep, Active Tretinoin 0.025 % 1 Application by Topical route 1 time per day May, Active Albuterol Sulfate 90 mcg/actuation 2 puffs by Inhalation route every 4-6 hours as needed PRN cough or wheezing Jan, Active Cipro HC 0.2-1 % 3 drop by Otic route 2 times per day for 7 day(s) May, Active Advair Diskus 100 mcg-50 mcg 1 puffs by Inhalation route 2 times per day (rinse mouth and throat after use) Mar, Active pravastatin 80 mg take 1 tablet by Oral route 1 time per day Jun, Active Doxycycline Hyclate 100 mg take 1 tablet (100 mg) by oral route 2 times per day for 7 days May, Active Levemir 100 unit/mL 90 Unit by Subcutaneous route 2 times per day Sep, Active tramadol 50 mg take 1 tablet by Oral route every 6 hours as needed PRN May take up to 3 times per day as needed for pain. Apr, Active Victoza 0.6 mg/0.1 mL (18 mg/3 mL) 1.8 mg by Subcutaneous route 1 time per day Mar, Active RESULTS No Results PROCEDURES No Known [...] Dialysis [facility] 2012 -Dr. Simon now [facility] Medical History Colonoscopy (polyps 2 ) [...] removed 2 polyps 07/24/2015 Surgical History heartcath---[facility]--Dr. Rich 10/06/2017 Hospitalization History [facility] x[facility] 4 days for SOB, edema January 2015 Hospitalization History [facility] for leg pain 05/2015 Hospitalization History Anemia and transfusion 2015 Hospitalization History kidney failure 12/22/2017
--- OUTSIDE RECORDS SUMMARY | 2018-12-28 17:50 | XMS REPORT ---
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 Name Role Phone ASYA SNOW Unavailable PROBLEMS Type Condition ICD9-CM Code NAJ62-YV Code Onset Dates Condition Status SNOMED Code Problem Chronic kidney disease, stage 4 (severe) N18.4 Active 785647190 Problem Psoriasis of scalp L40.9 Active 653413267 Problem Type 2 diabetes mellitus with hyperglycemia E11.65 Active 224027352691958 Problem Fibromyalgia M79.7 Active 475512422 Problem History of DVT (deep vein thrombosis) Z86.718 Active 568134659 Problem Carpal tunnel syndrome, bilateral G56.03 Active 45239021623598264 Problem Type 2 diabetes mellitus with other diabetic kidney complication E11.29 Active 089529236 Problem Anemia in other chronic diseases classified elsewhere D63.8 Active 691691592 Problem 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9 Active 12529895 Problem 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 Active 150873685833763 Problem Primary insomnia F51.01 Active 5797021 Problem Oxygen desaturation during sleep G47.34 Active 622585472 Problem Right carpal tunnel syndrome G56.01 Active 740413226086676 Problem Diabetic polyneuropathy associated with type 2 diabetes mellitus E11.42 Active 15003284 Problem Depression, unspecified depression type F32.9 Active 03645658 ALLERGIES No Information ENCOUNTERS Encounter Location Date Diagnosis [facility] [address], [place] [address] Apr, [facility] [address], [place] [address] Feb, [facility] [address], [place] [address] Feb, [facility] [address], [place] [address] Jan, [facility] [address] [place] [address] Jan, [facility] [address], [place] [address] Jan, [place] [id number] [id number] Jan, [facility] [address], [place] [address] Jan, [facility] [address], [place] [address] Jan, [facility] [address], [place] [address] Jan, Essential hypertension I10 [facility] [address], [place] [address] Jan, Chronic obstructive pulmonary disease, unspecified COPD type J44.9 [facility] [address], [place] [address] Jan, [facility] [address], [place] [address] Jan, [facility] [id number], [place] [address] Jan, Type 2 diabetes mellitus with other diabetic kidney complication E11.29 ; Anemia in other chronic diseases classified elsewhere D63.8 ; Chronic obstructive pulmonary disease, unspecified COPD type J44.9 and BMI 60.0-69.9, adult Z68.44 [facility] [id number] [place] [address] Jan, [facility] [id number] [place] [address] Jan, [facility] [id number] [place] [id number] Jan, [facility] [id number] [place] [address] [id number] Dec, [facility] [id number] [place] [id number] Dec, [facility] [id number] [place] [id number] Dec, Essential hypertension I10 ; Type 2 diabetes mellitus with other diabetic kidney complication E11.29 ; Depression, unspecified depression type F32.9 ; Supplemental oxygen dependent Z99.81 ; Chronic pain syndrome G89.4 ; Fibromyalgia M79.7 ; Carpal tunnel syndrome, bilateral G56.03 and Chronic kidney disease, stage 4 (severe) N18.4 [place] [id number] [place] [address] Dec, Essential hypertension I10 [place] [id number] [place] [address] November, Type 2 diabetes mellitus with other diabetic kidney complication E11.29 [facility] [id number] [place] [address] November, Chronic pain syndrome G89.4 [facility] [id number] [place] [address] November, [facility] [id number] [place] [address] November, [facility] [id number] [place] [address] November, [place] [address], [place] [address] Oct, Type 2 diabetes mellitus with other diabetic kidney complication E11.29 [place] [address], [place] [address] Oct, Primary insomnia F51.01 [facility] [id number] [id number] Oct, Bilateral lower extremity edema R60.0 [place] [address], [place] [address] Oct, [place] [address] [place] [address] Sep, Type 2 diabetes mellitus with other diabetic kidney complication E11.29 and Chronic obstructive pulmonary disease, unspecified COPD type J44.9 [place] [address], [place] [address] 15 Aug, 2017 Type 2 diabetes mellitus with other diabetic kidney complication E11.29 [place] [address], [place] [address] Aug, Gastroesophageal reflux disease without esophagitis K21.9 ; 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 ; Chronic pain syndrome G89.4 ; Essential hypertension I10 and Type 2 diabetes mellitus with other diabetic kidney complication E11.29 [place] [address], [place] [address] 08 Aug, 2017 Chronic pain syndrome G89.4 [place] [address], [place] [address] Aug, Type 2 diabetes mellitus with other diabetic kidney complication E11.29 [place] [address], [place] [address] Jul, Diabetic polyneuropathy associated with type 2 diabetes mellitus E11.42 [place] [address], [place] [address] Jul, Primary insomnia F51.01 [place] [address], [place] [address] Jul, [place] [id number] [place] [address] Jul, Type 2 diabetes mellitus with other diabetic kidney complication E11.29 and Chronic obstructive pulmonary disease, unspecified COPD type J44.9 [place] [id number] [place] [address] Jul, Type 2 diabetes mellitus with other diabetic kidney complication E11.29 [place] [id number] [place] [address] Jun, Type 2 diabetes mellitus with other diabetic kidney complication E11.29 [place] [id number] [place] [address] Jun, [place] [id number] [place] [address] Jun, Chronic obstructive pulmonary disease, unspecified COPD type J44.9 [place] [id number] [place] [address] May, Type 2 diabetes mellitus with other diabetic kidney complication E11.29 [place] [address] [place] [address] May, senior living current use of anticoagulant Z79.01 and Essential hypertension I10 [address] [place] [address] May, Anemia in other chronic diseases classified elsewhere D63.8 ; Chronic obstructive pulmonary disease, unspecified COPD type J44.9 ; Oxygen desaturation during sleep G47.34 ; Sleep apnea in adult G47.33 and Supplemental oxygen dependent Z99.81 [place] [address] [place] [address] May, Type 2 diabetes mellitus with other diabetic kidney complication E11.29 ; Essential hypertension I10 ; Chronic pain syndrome G89.4 ; BMI 40.0- 44.9, adult Z68.41 ; Gastroesophageal reflux disease without esophagitis K21.9 ; senior living current use of anticoagulant Z79.01 ; 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 ; Diabetic polyneuropathy associated with type 2 diabetes mellitus E11.42 ; Edema of both legs R60.0 and Supplemental oxygen dependent Z99.81 [place] [id number] [place] [address] May, [place] [address] [address] May, Essential hypertension I10 and Gastroesophageal reflux disease without esophagitis K21.9 [place] [address] [address] May, [place] [address] [address] May, Type 2 diabetes mellitus with other diabetic kidney complication E11.29 and senior living current use of anticoagulant Z79.01 [place] [address] [address] Apr, Chronic pain syndrome G89.4 and Essential hypertension I10 [place] [address] [address] Apr, Type 2 diabetes mellitus with other diabetic kidney complication E11.29 [place] [address] [address] Apr, Type 2 diabetes mellitus with other diabetic kidney complication E11.29 [place] [id number] [place] [address] Apr, Essential hypertension I10 [place] [address] [address] Apr, Gastroesophageal reflux disease without esophagitis K21.9 [facility] [address] [address] Apr, Type 2 diabetes mellitus with other diabetic kidney complication E11.29 [place] [address] [address] Apr, Type 2 diabetes mellitus with other diabetic kidney complication E11.29 and senior living current use of anticoagulant Z79.01 [place] [id number] [place] [address] 27 Mar, 2017 Encounter for immunization Z23 and Preoperative examination Z01.818 [place] [id number] [place] [address] Mar, [place] [id number] [place] [address] Mar, Type 2 diabetes mellitus with other diabetic kidney complication E11.29 [place] [id number] [place] [address] Mar, Type 2 diabetes mellitus with other diabetic kidney complication E11.29 [place] [id number] [place] [address] Mar, Gastroesophageal reflux disease without esophagitis K21.9 [place] [id number] [place] [address] Mar, Essential hypertension I10 [place] [address] [address] Feb, senior living current use of anticoagulant Z79.01 [place] [id number] [place] [address] Feb, Type 2 diabetes mellitus with other diabetic kidney complication E11.29 [place] [id number] [place] [address] Feb, Type 2 diabetes mellitus with other diabetic kidney complication E11.29 [place] [id number] [place] [address] Feb, Type 2 diabetes mellitus with other diabetic kidney complication E11.29 [place] [id number] [place] [address] Feb, Gastroesophageal reflux disease without esophagitis K21.9 [place] [address], [place] [address] Feb, Type 2 diabetes mellitus with other diabetic kidney complication E11.29 [facility] [address], [place] [address] Feb, 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 [facility] [address], [place] [address] Jan, Type 2 diabetes mellitus with other diabetic kidney complication E11.29 [facility] [address] [place] [address] Jan, Type 2 diabetes mellitus with other diabetic kidney complication E11.29 [facility] [address], [place] [address] Jan, Chronic pain syndrome G89.4 [facility] [address], [place] [address] Jan, [facility] [address], [place] [address] Jan, [facility] [address], [place] [address] Jan, [facility] [address], [place] [address] Jan, [facility] [address], [place] [address] Jan, Primary insomnia F51.01 ; Type 2 diabetes mellitus with other diabetic kidney complication E11.29 ; Chronic pain syndrome G89.4 and Essential hypertension I10 [facility] [address], [place] [address] Jan, Primary insomnia F51.01 [facility] [address], [place] [address] Jan, Type 2 diabetes mellitus with other diabetic kidney complication E11.29 [facility] [address], [place] [address] Jan, [facility] [id number] [place] [address] Jan, Chronic obstructive pulmonary disease, unspecified COPD type J44.9 [facility] [address] [place] [address] Jan, Essential hypertension I10 ; Type 2 [...] associated with type 2 diabetes mellitus E11.42 [place] [address] [place] [address] Jan, Gastroesophageal reflux disease without esophagitis K21.9 [facility] [id number] [place] [address] Dec, [facility] [id number] [place] [address] Dec, [place] [id number] [place] [address] Dec, senior living current use of anticoagulant Z79.01 ; Chronic pain syndrome G89.4 and Essential hypertension I10 [facility] [id number] [place] [address] Dec, [facility] [id number] [place] [address] Dec, Type 2 diabetes mellitus with other diabetic kidney complication E11.29 [facility] [id number] [place] [address] Dec, [facility] [id number] [place] [address] Dec, Gastroesophageal reflux disease without esophagitis K21.9 [place] [address], [place] [address] November, Type 2 diabetes mellitus with other diabetic kidney complication E11.29 [facility] [address], [place] [address] November, [facility] [address], [place] [address] November, Type 2 diabetes mellitus with other diabetic kidney complication E11.29 [facility] [address], [place] [address] November, [facility] [address] [place] [address] November, Type 2 diabetes mellitus with other diabetic kidney complication E11.29 [facility] [address], [place] [address] November, [facility] [address] [place] [address] Oct, Essential hypertension I10 [facility] [address], [place] [address] Oct, Psoriasis of scalp L40.9 [facility] [address], [place] [address] Oct, Essential hypertension I10 and Chronic pain syndrome G89.4 [facility] [address], [place] [address] Oct, [facility] [address], [place] [address] Sep, Type 2 diabetes mellitus with other diabetic kidney complication E11.29 [facility] [address], [place] [address] Sep, [facility] [address], [place] [address] Sep, Type 2 diabetes mellitus with other diabetic kidney complication E11.29 [place] [id number] [place] [address] 20 Sep, 2017 Type 2 diabetes mellitus with other diabetic kidney complication E11.29 [place] [id number] [place] [address] 09 Sep, 2017 Type 2 diabetes mellitus with other diabetic kidney complication E11.29 ; Chronic kidney disease, stage 4 (severe) N18.4 ; Chronic obstructive pulmonary disease, unspecified COPD type J44.9 ; Iron deficiency anemia due to chronic blood loss D50.0 ; 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 ; Gastroesophageal reflux disease without esophagitis K21.9 ; Essential hypertension I10 ; Primary insomnia F51.01 ; Depression, unspecified depression type F32.9 ; Chronic pain syndrome G89.4 ; Wrist pain, right M25.531 ; Paresthesia of right upper extremity R20.2 and Psoriasis of scalp L40.9 [place] [id number] [place] [address] Sep, [place] [id number] [place] [address] 24 Aug, 2016 Essential hypertension I10 [place] [id number] [place] [address] Aug, History of DVT (deep vein thrombosis) Z86.718 [place] [id number] [place] [address] Aug, [place] [id number] [place] [address] Jul, [place] [id number] [place] [address] Jul, [place] [id number] [place] [address] Jul, senior living current use of anticoagulant Z79.01 ; Chronic pain syndrome G89.4 and Chronic kidney disease, stage 4 (severe) N18.4 [place] [id number] [place] [address] Jul, [facility] [address], [place] [address] Jul, [facility] [address], [place] [address] Jul, [facility] [address], [place] [address] Jul, [place] [address] [place] [address] Jul, [place] [address] [place] [address] Jul, Type 2 diabetes mellitus with other diabetic kidney complication E11.29 [place] [address] [place] [address] 16 Jul, 2016 History of DVT (deep vein thrombosis) Z86.718 [place] [address], [place] [address] Jun, [place] [id number] [place] [address] Jun, History of DVT (deep vein thrombosis) Z86.718 [place] [address], [place] [address] 15 Jun, 2016 Post traumatic stress disorder (PTSD) F43.10 [place] [address], [place] [address] 07 Jun, 2016 Type 2 diabetes mellitus [...] pain M79.641 and Right wrist pain M25.531 [facility] [id number] [place] [address] 28 May, 2016 [facility] [address] [address] May, [facility] [id number] [place] [address] May, [facility] [address] [address] 15 May, 2016 [facility] [address] [address] May, Anemia in other chronic diseases classified elsewhere D63.8 [facility] [id number] [place] [address] May, [facility] [address] [address] Apr, [facility] [id number] [place] [address] 27 Mar, 2016 Dermatofibroma D23.9 [facility] [id number] [place] [address] 20 Mar, 2016 [facility] [id number] [place] [address] 14 Mar, 2016 Chronic pain syndrome G89.4 [facility] [address] [address] 09 Mar, 2016 [facility] [id number] [place] [address] 07 Mar, 2016 [facility] [address] [place] [address] Mar, [facility] [address] [place] [address] Feb, [facility] [id number] [place] [address] Feb, [facility] [id number] [place] [address] Feb, [facility] [id number] [place] [address] Feb, [facility] [id number] [place] [address] Feb, [facility] [id number] [place] [address] Feb, [facility] [id number] [place] [address] Feb, Type 2 diabetes mellitus with other [...] Renal failure, chronic, stage 4 (severe) N18.4 [facility] [id number] [place] [address] Feb, Skin tags, multiple acquired L91.8 [facility] [id number] [place] [address] Jan, [facility] [id number] [place] [id number] Jan, Dental examination Z01.20 [place] [id number] [place] [address] Jan, [place] [id number] [place] [address] Jan, Type 2 diabetes mellitus with other [...] Renal failure, chronic, stage 4 (severe) N18.4 [place] [id number] [place] [address] Dec, Diabetes type 2, uncontrolled E11.65 [place] [id number] [place] [address] Dec, [place] [id number] [place] [address] Dec, Type 2 diabetes mellitus with other [...] and Depression, unspecified depression type F32.9 [facility] [id number] [place] [phone] Dec, Dental caries K02.9 [facility] [address] [id number] [id number] Dec, [facility] [address] [id number] [id number] Dec, Dental examination Z01.20 [facility] [address] [id number] [id number] November, Dental examination Z01.20 and Dental caries K02.9 [facility] [address] [id number] [id number] Oct, [facility] [id number] [place] [id number] Oct, [facility] [id number] [place] [address] [id number] Sep, [facility] [id number] [place] [address] [id number] Sep, [facility] [id number] [place] [id number] Sep, [facility] [id number] [place] [address] [id number] Sep, Other chronic pain 338.29 [facility] [facility] [address] [id number] [place] [address] [id number] Aug, Diabetes type 2, uncontrolled E11.65 and Morbid obesity due to excess calories E66.01 [facility] [address] [id number] [place] [address] [id number] Aug, Hair loss L65.9 [facility] [address] [id number], [place] [id number] Aug, [facility] [address] [id number] [place] [address] [id number] Jul, [facility] [address] [id number] [place] [address] [id number] Jul, [facility] [address] [id number] [place] [address] [id number] Jun, [facility] [address] [id number] [place] [address] [id number] Jun, Hair loss L65.9 and Disorder of the skin and subcutaneous tissue, unspecified L98.9 [place] [id number] [place] [address] [id number] May, Type 2 diabetes mellitus with other diabetic kidney complication E11.29 ; Type 2 diabetes mellitus with hyperglycemia E11.65 ; Morbid obesity due to excess calories E66.01 and Essential hypertension I10 [address] [id number] May, Diabetes type 2, uncontrolled E11.65 ; Encounter for immunization Z23 and Morbid obesity due to excess calories E66.[address] [id number] May, [facility] [address] [address] Apr, [address] [id number] Apr, Hyperglycemia R73.[address] [id number] Apr, [address] [id number] Apr, Depression F32.9 ; Encounter for immunization Z23 ; Hyperglycemia R73.9 and Anemia in other chronic diseases classified elsewhere D63.8 [facility] [id number] [place] [address] [id number] Mar, [place] [id number] [place] [address] [id number] Feb, Positive occult stool blood test 792.1 [place] [id number] [place] [address] [id number] Feb, Depression 311 ; Other chronic pain 338.29 and Diabetes with renal manifestations, type II or unspecified type, not stated as uncontrolled 250.40 [facility] [address] [address] Feb, Occult blood in stools 792.[address] [id number] Feb, Anemia 285.9 ; Occult blood positive stool 792.1 ; Unspecified essential hypertension 401.9 and Other chronic pain 338.29 [place] [id number] [place] [address] [id number] Feb, [place] [id number] [place] [address] [id number] Feb, Anemia 285.9 [place] [id number] [place] [address] [id number] Feb, [address] [id number] Feb, [place] [id number] [place] [address] [id number] Feb, Diabetes with renal manifestations, type II or unspecified type, not stated as uncontrolled 250.40 ; Other chronic pain 338.29 ; Unspecified essential hypertension 401.9 ; Anemia 285.9 and Depression [address] [place] [id number] [place] [address] [id number] Jan, [place] [id number] [place] [address] [id number] Jan, Anemia 285.9 and Follow up V67.9 [place] [id number] [place] [address] [id number] Jan, [place] [id number] [place] [address] [id number] Jan, [id number] [place] [address] [id number] Jan, [place] [id number] [place] [address] [id number] Dec, [facility] [id number] [place] [address] Oct, [facility] [id number] [place] [address] Oct, [facility] [id number] [place] [address] Sep, [place] [id number] [place] [address] [id number] Sep, [facility] [place] [facility] [address] [facility] [id number] [place] [address] Sep, [facility] [place] [address] [facility] [id number], [place] [id number] Aug, [facility] [place] [facility] [address] [facility] [id number] [place] [address] Aug, [facility] [place] [facility] [address] [facility] [id number], [place] [address] Aug, [facility] [place] [address] [facility] [id number] [place] [id number] Aug, [facility] [place] [facility] [address] [facility] [id number], [place] [address] Aug, [facility] [place] [facility] [address] [id number] [place] [address] Aug, [facility] [place] [address] [id number], [place] [id number] Aug, [facility] [place] [facility] [address] [facility] [id number], [place] [address] Aug, [facility] [place] [address] [facility] [id number], [place] [id number] Jul, [facility] [place] [facility] [address] [facility] [id number], [place] [address] Jul, [facility] [place] [facility] [address] [facility] [id number], [place] [address] Jul, [facility] [place] [address] [facility] [id number], [place] [id number] Jul, [facility] [place] [facility] [address] [facility] [id number], [place] [address] Jul, [facility] [place] [address] [facility] [id number], [place] [id number] Jul, [facility] [place] [facility] [address] [id number], [place] [address] Jul, [facility] [place] [address] [id number], [place] [id number] Jun, [facility] [place] [address] [id number] [place] [id number] Jun, [facility] [place] [facility] [address] [facility] [id number], [place] [address] Jun, [facility] [place] [facility] [address] [facility] [id number], [place] [address] Jun, [facility] [place] [address] [id number], [place] [id number] Jun, [facility] [place] [facility] [address] [facility] [id number], [place] [address] Jun, [facility] [place] [address] [facility] [id number], [place] [id number] May, [facility] [place] [facility] [address], [place] [address] May, [facility] [place] [facility] [address] [facility] [id number], [place] [address] May, [facility] [place] [address] [facility] [id number], [place] [id number] Apr, [facility] [place] [facility] [address] [facility] [id number], [place] [address] Apr, [facility] [place] [address] [facility] [id number], [place] [id number] Apr, [facility] [place] [address] [facility] [id number], [place] [id number] Apr, [facility] [place] [facility] [address] [facility] [id number], [place] [address] Apr, [facility] [place] [facility] [address] [facility] [id number], [place] [address] Apr, [facility] [place] [address] [facility] [id number], [place] [id number] Mar, [facility] [place] [facility] [address] [facility] [id number], [place] [address] Mar, [facility] [place] [address] [id number] [place] [id number] Mar, [facility] [place] [facility] [address] [id number] [place] [address] Mar, [facility] [place] [address] [id number] [place] [id number] Mar, [facility] [place] [facility] [address] [id number] [place] [address] Mar, 2013 [facility] [place] [address] [id number] [place] [id number] Mar, [facility] [place] [facility] [address] [facility] [id number] [place] [address] Mar, [facility] [place] [address] [id number] [place] [id number] Mar, [facility] [place] [facility] [address] [facility] [id number], [place] [address] Mar, [facility] [place] [address] [facility] [id number] [place] [id number] Feb, [facility] [place] [facility] [address] [facility] [id number], [place] [address] Feb, [facility] [place] [address] [facility] [id number] [place] [id number] Jan, [facility] [place] [facility] [address] [facility] [id number], [place] [address] Jan, [facility] [place] [address] [facility] [id number] [place] [id number] Jan, [facility] [place] [facility] [address] [facility] [id number], [place] [address] Jan, [facility] [place] [address] [facility] [id number] [place] 862208494 Jan, [facility] [place] [facility] [address] [facility] [id number], [place] [address] Jan, [facility] [place] [facility] [address] [facility] [id number], [place] [address] Dec, [facility] [place] [facility] [address] [id number] [place] [address] Dec, [facility] [address] [id number] [place] [id number] November, [facility] [place] [facility] [address] [id number] [place] [address] November, [facility] [place] [address] [facility] [id number] [place] [id number] November, [facility] [place] [facility] [address] [id number] [place] [address] November, [facility] [place] [address] [facility] [id number] [place] [id number] Oct, [facility] [place] [facility] [address] [id number] [place] [address] Oct, [facility] [place] [facility] [address] [facility] [id number] [place] [address] Oct, [facility] [place] [facility] [address] [id number] [place] [address] Oct, [facility] [place] [facility] [address] [facility] [id number] [place] [address] Oct, [facility] [place] [facility] [address] [facility] [id number] [place] [address] Oct, [facility] [address] [id number] [place] [id number] Sep, [facility] [place] [address] [id number] [place] 720946950 Sep, [facility] [place] [facility] [address] [id number] [place] [address] Sep, [facility] [place] [facility] [address] [id number] [place] [address] Sep, [facility] [place] [address] [id number] [place] 665807422 Sep, [facility] [place] [facility] [address] [facility] [id number], [place] [address] Sep, [facility] [place] [facility] [address] [facility] [id number], [place] [address] Aug, [facility] [place] [facility] [address] [facility] [id number], [place] [address] Aug, [facility] [place] [address] [facility] [id number], [place] [id number] Aug, [facility] [place] [address] [facility] [id number], [place] 677609817 Aug, [facility] [place] [facility] [address] [facility] [id number], [place] [address] Aug, [facility] [place] [address] [id number], [place] 911413992 Aug, [facility] [place] [facility] [address]00565100[place], [place] [address] Aug, [facility] [place] [address] [id number], [place] [id number] Aug, [facility] [place] [facility] [address]00565100[place], [place] [address] Aug, [facility] [place] [address] [id number], [place] 857252520 Aug, [facility] [place] [facility] [address] [id number], [place] [address] Aug, [facility] [place] [address] [facility] [id number], [place] [id number] Aug, [facility] [place] [facility] [address] [id number], [place] [address] Aug, [facility] [place] [facility] [address] [facility] [id number], [place] [address] Jul, [facility] [place] [address] [id number], [place] [id number] Jun, [facility] [place] [facility] [address] [id number], [place] [address] Jun, [facility] [place] [facility] [address] [id number], [place] [address] Jun, [facility] [place] [facility] [address] [facility] [id number], [place] [address] Jun, [facility] [place] [address] [facility] [id number], [place] 101616353 Jun, [facility] [place] [facility] [address] [facility] [id number], [place] [address] Jun, [facility] [place] [facility] [address] [facility] [id number], [place] [address] Jun, [facility] [place] [address] [facility] [id number], [place] 737372310 Jun, [facility] [place] [facility] [address] [facility] [id number], [place] [address] Jun, [facility] [place] [facility] [address] [facility] [id number], [place] [address] May, [facility] [place] [address] [facility] [id number], [place] [id number] May, [facility] [place] [facility] [address] [facility] [id number], [place] [address] May, [facility] [place] [facility] [address] [facility] [id number], [place] [address] May, [facility] [place] [facility] [address] [facility] [id number], [place] [address] May, [facility] [place] [facility] [address] [facility] [id number], [place] [address] May, [facility] [place] [address] [facility] [id number], [place] 025072361 May, [facility] [place] [facility] [address] [facility] [id number], [place] [address] May, [facility] [place] [address] [facility] [id number], [place] 023443056 May, [facility] [place] [facility] [address] [facility] [id number], [place] [address] May, [facility] [place] [address] [facility] [id number], [place] 458651328 Apr, [facility] [place] [facility] [address] [facility] [id number], [place] [address] Apr, [facility] [place] [facility] [address] [facility] [id number], [place] [address] Apr, [facility] [place] [address] [facility] [id number], [place] [id number] Apr, [facility] [place] [facility] [address] [facility] [id number], [place] [address] Apr, [facility] [place] [facility] [address] [facility] [id number], [place] [address] Apr, [facility] [address] [facility] [id number], [place] [id number] Apr, [facility] [place] [facility] [address] [facility] [id number], [place] [address] Apr, [facility] [place] [facility] [address] [facility] [id number], [place] [address] Apr, [facility] [place] [facility] [address] [facility] [id number], [place] [address] Apr, [facility] [place] [address] [facility] [id number], [place] 613451685 Apr, [facility] [place] [facility] [address] [facility] [id number], [place] [address] Apr, [facility] [place] [address] [facility] [id number], [place] 960322400 Apr, [facility] [place] [facility] [address] [facility] [id number], [place] [address] Apr, [facility] [place] [address] [facility] [id number], [place] [id number] Apr, [facility] [place] [facility] [address] [facility] [id number], [place] [address] Apr, [facility] [address] [facility] [id number], [place] [address] Apr, [facility] [address] [facility] [id number], [place] [address] Apr, [facility] [place] [address] [id number], [place] 509611858 Apr, [facility] [address] [facility] [id number], [place] [address] Mar, [facility] [address] [facility] [id number], [place] [address] Mar, [facility] [place] [address] [id number] [place] [id number] Mar, [facility] [place] [address] [id number] [place] 357679344 Mar, [facility] [place] [address] [id number] [place] 877692989 Mar, [facility] [place] [address] [id number] [place] 535083896 Feb, [facility] [place] [address] [id number] [place] 908762994 Feb, [facility] [place] [address] [id number] [place] 017830208 Feb, [facility] [address] [facility] [id number], [place] [address] Feb, [facility] [place] [address] [id number], [place] 542056370 Feb, [facility] [place] [address] [id number] [place] 459477964 Feb, [facility] [place] [address] [id number] [place] [id number] Feb, [facility] [place] [address] [id number] [place] 962244244 Feb, [facility] [place] [address] [id number] [place] 412271746 Feb, [facility] [place] [address] [id number] [place] 938501203 Jan, [facility] [place] [address] [id number] [place] 522156031 Jan, [facility] [place] [address] [id number] [place] 875719997 Jan, [facility] [place] [address] [id number] [place] 624660902 Jan, [facility] [place] [address] [id number] [place] 87[place]648[place] Jan, [facility] [address] [id number] [place] [address] Jan, [facility] [place] [address] [id number] [place] 285552816 Jan, [facility] [place] [address] [id number] [place] 385381937 Jan, [facility] [place] [address] [id number] [place] 595325657 Dec, [facility] [place] [address] [id number] [place] 089966198 November, [facility] [place] [address] [id number] [place] 929477093 November, [facility] [place] [address] [id number] [place] 364822195 November, [facility] [place] [address] [id number] [place] 808964333 November, [facility] [place] [address] [id number] [place] 559826826 November, [facility] [place] [address] [id number] [place] 533980925 November, [facility] [place] [address] [id number] [place] 531744286 Jul, [facility] [place] [address] [id number] [place] 701074690 Jul, [facility] [place] [address] [id number] [place] 686010934 Jul, [facility] [place] [address] [id number], [place] 232108733 Jun, [facility] [place] [facility] [address] [id number], [place] [address] Jun, [facility] [place] [address] [facility] [id number], [place] [id number] May, [facility] [place] [facility] [address] [facility] [id number], [place] [address] May, [facility] [place] [address] [id number], [place] 018159620 May, [facility] [place] [facility] [address] [facility] [id number], [place] [address] May, [facility] [place] [address] [facility] [id number], [place] [id number] May, [facility] [place] [facility] [id number], [place] [address] May, [facility] [place] [address] [facility] [id number], [place] 548868871 Apr, [facility] [place] [facility] [address] [facility] [id number], [place] [address] Apr, [facility] [place] [facility] [address] [facility] [id number], [place] [address] Apr, [facility] [place] [address] [facility] [id number], [place] 787265361 Apr, [facility] [place] [address] [facility] [id number], [place] [id number] Apr, [facility] [place] [facility] [address] [facility] [id number], [place] [address] Apr, [facility] [place] [facility] [address] [facility] [id number], [place] [address] Apr, [facility] [place] [address] [facility] [id number][place] [id number] Apr, [facility] [place] [facility] [address] [facility] [id number], [place] [address] Apr, [facility] [place] [address] [id number] [place] [id number] Apr, [facility] [place] [address] [id number] [place] [id number] Apr, [facility] [place] [address] [id number] [place] [id number] Mar, [facility] [place] [address] [id number] [place] [id number] Feb, [facility] [place] [address] [id number] [place] [id number] Jan, [facility] [place] [address] [id number] [place] [id number] Dec, [facility] [place] [address] [id number] [place] [id number] Dec, [facility] [place] [address] [id number] [place] [id number] Dec, [facility] [place] [address] [id number] [place] [id number] Dec, [facility] [place] [address] [id number] [place] [id number] Dec, [facility] [place] [address] [id number] [place] [id number] November, [facility] [place] [address] [id number] [place] [id number] November, [facility] [place] [address] [id number] [place] [id number] November, [facility] [id number], [place] [address] November, [facility] [place] [address] [id number] [place] [id number] November, [facility] [place] [address] [id number] [place] [id number] November, [facility] [place] [address] [id number] [place] [id number] Oct, [facility] [place] [address] [id number] [place] [id number] Oct, [facility] [place] [address] [id number] [place] [id number] Oct, [facility] [place] [address] [id number] [place] [id number] Oct, [facility] [place] [address] [id number] [place] [id number] Oct, [facility] [place] [address] [id number] [place] [id number] Oct, [facility] [place] [address] [id number] [place] [id number] Sep, [facility] [place] [address] [id number] [place] [id number] Aug, [facility] [place] [address] [id number] [place] [id number] Aug, [facility] [place] [address] [id number] [place] [id number] Jul, [facility] [place] [facility] [id number], [place] [address] Jun, [facility] [place] [facility] [address] [id number], [place] [address] Jun, [facility] [place] [facility] [id number], [place] [address] Jun, [facility] [place] [facility] [id number], [place] [address] Jun, [facility] [place] [facility] [id number], [place] [address] May, [facility] [place] [facility] [address] [id number], [place] [address] May, [facility] [place] [facility] [address] [facility] [id number], [place] [address] Apr, [facility] [place] [facility] [address] [id number], [place] [address] Apr, [facility] [place] [facility] [id number], [place] [address] Apr, [facility] [place] [facility] [id number] [place] [address] Feb, [facility] [address] [id number] [place] [address] 15 Aug, 2010 [facility] [address] [id number] [place] [address] Jul, [facility] [address] [id number] [place] [address] 30 Jun, 2010 [facility] [address] [id number] [place] [address] May, [facility] [address] [id number] [place] [address], [place] [address] May, [facility] [address] [id number] [place] [address] May, [facility] [address] [facility] [id number] [place] [address] May, [facility] [address] [id number] [place] [address] May, [facility] [address] [facility] [id number] [place] [address] Aug, [facility] [address] [facility] [id number] [place] [address] Jun, [facility] [place] [facility] [address] [id number] [place] [address] Jun, [facility] [address] [id number] [place] [address] Jun, [facility] [facility] [facility] [address] [id number] [place] [address] 24 May, 2009 [facility] [place] [facility] [address] [id number] [place] [address] Apr, [facility] [address] [id number] [place] [address] Apr, [facility] [address] [facility] [id number], [place] [address] Apr, [facility] [address] [facility] [id number], [place] [address] Jan, [facility] [address] [facility] [id number], [place] [address] Oct, [facility] [address] [id number], [place] [address] May, [facility] [address] [facility] [id number], [place] [address] May, IMMUNIZATIONS No Known Immunizations SOCIAL HISTORY Never Assessed REASON FOR VISIT Prior authorization PLAN OF CARE VITAL SIGNS MEDICATIONS Unknown [...] Dialysis Rtuhy Reveles 2012 -Dr. Simon now [facility] Medical History Colonoscopy (polyps 2 ) [...]
[2018-12-28] MEDS ORDERED: CEPH500T PO (17:51)
--- OUTSIDE RECORDS SUMMARY | 2018-12-28 17:51 | XMS REPORT ---
Author Author RIYA PHILLIPS Organization [facility] Address [address] [place] [address] Care Team Providers Care State'S Attorney Name Role Phone ALAN RIYA Unavailable PROBLEMS Type Condition ICD9-CM Code JAZ87-JH Code Onset Dates Condition Status SNOMED Code Problem Chronic kidney disease, stage 4 (severe) N18.4 Active 482614966 Problem Psoriasis of scalp L40.9 Active 202225928 Problem Type 2 diabetes mellitus with hyperglycemia E11.65 Active 155012920961576 Problem Fibromyalgia M79.7 Active 766683602 Problem History of DVT (deep vein thrombosis) Z86.718 Active 739303018 Problem Carpal tunnel syndrome, bilateral G56.03 Active 71725640161572917 Problem Type 2 diabetes mellitus with other diabetic kidney complication E11.29 Active 049351497 Problem Anemia in other chronic diseases classified elsewhere D63.8 Active 483093197 Problem termination clerk 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 Active 499827329 Problem Paresthesia of right upper extremity R20.2 Active 08806184 Problem Bilateral lower extremity edema R60.0 Active 760950050 Problem Supplemental oxygen dependent Z99.81 Active 331700881487 Problem Sleep apnea in adult G47.33 Active 49942355 Problem Chronic pain syndrome G89.4 Active 893199128 Problem termination clerk current use of anticoagulant Z79.01 Active 295950695 Problem Essential hypertension I10 Active 72457642 Problem Gastroesophageal reflux disease without esophagitis K21.9 Active 108265804 Problem Chronic obstructive pulmonary disease, unspecified COPD type J44.9 Active 44018245 Problem 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 Active 102037686524660 Problem Primary insomnia F51.01 Active 5381216 Problem Oxygen desaturation during sleep G47.34 Active 598188911 Problem Right carpal tunnel syndrome G56.01 Active 211378453575194 Problem Diabetic polyneuropathy associated with type 2 diabetes mellitus E11.42 Active 44275174 Problem Depression, unspecified depression type F32.9 Active 49183156 ALLERGIES No Information ENCOUNTERS Encounter Location Date Diagnosis [facility] [address], [place] [address] Feb, [facility] [address], [place] [address] Feb, [facility] [address], [place] [address] Jan, [facility] [address], [place] [address] Jan, [facility] [address], [place] [address] Jan, [address] [id number] Jan, [facility] [address], [place] [address] Jan, [facility] [address], [place] [address] Jan, [facility] [address], [place] [address] Jan, Essential hypertension I10 [facility] [address] [address] Jan, Chronic obstructive pulmonary disease, unspecified COPD type J44.9 [facility] [address], [place] [address] Jan, [facility] [address], [place] [address] Jan, [facility] [address], [place] [address] Jan, Type 2 diabetes mellitus with other diabetic kidney complication E11.29 ; Anemia in other chronic diseases classified elsewhere D63.8 ; Chronic obstructive pulmonary disease, unspecified COPD type J44.9 and BMI 60.0-69.9, adult Z68.44 [facility] [id number] [place] [address] Jan, [facility] [id number] [place] [address] Jan, [facility] [id number] [place] [id number] Jan, [facility] [id number] [place] [id number] Dec, [facility] [id number] [place] [id number] Dec, [facility] [id number] [place] [id number] Dec, Essential hypertension I10 ; Type 2 diabetes mellitus with other diabetic kidney complication E11.29 ; Depression, unspecified depression type F32.9 ; Supplemental oxygen dependent Z99.81 ; Chronic pain syndrome G89.4 ; Fibromyalgia M79.7 ; Carpal tunnel syndrome, bilateral G56.03 and Chronic kidney disease, stage 4 (severe) N18.4 [facility] [id number] [place] [address] Dec, Essential hypertension I10 [facility] [id number] [place] [address] November, Type 2 diabetes mellitus with other diabetic kidney complication E11.29 [facility] [id number] [place] [address] November, Chronic pain syndrome G89.4 [facility] [id number] [place] [address] November, [facility] [id number] [place] [address] November, [facility] [id number] [place] [address] November, [facility] [id number] [place] [address] Oct, Type 2 diabetes mellitus with other diabetic kidney complication E11.29 [place] [address], [place] [address] Oct, Primary insomnia F51.01 [facility] [id number] [id number] Oct, Bilateral lower extremity edema R60.0 [place] [id number] [place] [address] Oct, [place] [id number] [place] [address] Sep, Type 2 diabetes mellitus with other diabetic kidney complication E11.29 and Chronic obstructive pulmonary disease, unspecified COPD type J44.9 [place] [address] [place] [address] 15 Aug, 2017 Type 2 diabetes mellitus with other diabetic kidney complication E11.29 [place] [id number] [place] [address] 12 Aug, 2017 Gastroesophageal reflux disease without esophagitis K21.9 ; jail current use of anticoagulant Z79.01 ; Chronic pain syndrome G89.4 ; Essential hypertension I10 and Type 2 diabetes mellitus with other diabetic kidney complication E11.29 [place] [address], [place] [address] 08 Aug, 2017 Chronic pain syndrome G89.4 [place] [address] [place] [address] Aug, Type 2 diabetes mellitus with other diabetic kidney complication E11.29 [place] [address], [place] [address] Jul, Diabetic polyneuropathy associated with type 2 diabetes mellitus E11.42 [place] [address], [place] [address] Jul, Primary insomnia F51.01 [place] [address] [place] [address] Jul, [place] [address], [place] [address] Jul, Type 2 diabetes mellitus with other diabetic kidney complication E11.29 and Chronic obstructive pulmonary disease, unspecified COPD type J44.9 [place] [address], [place] [address] Jul, Type 2 diabetes mellitus with other diabetic kidney complication E11.29 [place] [id number] [place] [address] Jun, Type 2 diabetes mellitus with other diabetic kidney complication E11.29 [place] [id number] [place] [address] Jun, [place] [id number] [place] [address] Jun, Chronic obstructive pulmonary disease, unspecified COPD type J44.9 [place] [id number] [place] [address] May, Type 2 diabetes mellitus with other diabetic kidney complication E11.29 [place] [id number] [place] [address] May, termination clerk current use of anticoagulant Z79.01 and Essential hypertension I10 [address] [place] [address] May, Anemia in other chronic diseases classified elsewhere D63.8 ; Chronic obstructive pulmonary disease, unspecified COPD type J44.9 ; Oxygen desaturation during sleep G47.34 ; Sleep apnea in adult G47.33 and Supplemental oxygen dependent Z99.81 [place] [id number] [place] [address] May, Type 2 diabetes mellitus with other diabetic kidney complication E11.29 ; Essential hypertension I10 ; Chronic pain syndrome G89.4 ; BMI 40.0- 44.9, adult Z68.41 ; Gastroesophageal reflux disease without esophagitis K21.9 ; jail current use of anticoagulant Z79.01 ; termination clerk 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 ; Diabetic polyneuropathy associated with type 2 diabetes mellitus E11.42 ; Edema of both legs R60.0 and Supplemental oxygen dependent Z99.81 [facility] [id number] [place] [address] 08 May, 2017 [facility] [id number] [place] [address] May, Essential hypertension I10 and Gastroesophageal reflux disease without esophagitis K21.9 [facility] [id number] [place] [address] May, [place] [id number] [place] [address] May, Type 2 diabetes mellitus with other diabetic kidney complication E11.29 and termination clerk current use of anticoagulant Z79.01 [place] [id number] [place] [address] Apr, Chronic pain syndrome G89.4 and Essential hypertension I10 [place] [id number] [place] [address] Apr, Type 2 diabetes mellitus with other diabetic kidney complication E11.29 [place] [id number] [place] [address] Apr, Type 2 diabetes mellitus with other diabetic kidney complication E11.29 [place] [address] [place] [address] Apr, Essential hypertension I10 [facility] [id number] [place] [address] Apr, Gastroesophageal reflux disease without esophagitis K21.9 [facility] [id number] [place] [address] Apr, Type 2 diabetes mellitus with other diabetic kidney complication E11.29 [facility] [id number] [place] [address] Apr, Type 2 diabetes mellitus with other diabetic kidney complication E11.29 and jail current use of anticoagulant Z79.01 [facility] [id number] [place] [address] 27 Mar, 2017 Encounter for immunization Z23 and Preoperative examination Z01.818 [facility] [id number] [place] [address] Mar, [place] [id number] [place] [address] Mar, Type 2 diabetes mellitus with other diabetic kidney complication E11.29 [place] [id number] [place] [address] 08 Mar, 2017 Type 2 diabetes mellitus with other diabetic kidney complication E11.29 [place] [id number] [place] [address] Mar, Gastroesophageal reflux disease without esophagitis K21.9 [place] [id number] [place] [address] Mar, Essential hypertension I10 [place] [id number] [place] [address] Feb, jail current use of anticoagulant Z79.01 [place] [id number] [place] [address] Feb, Type 2 diabetes mellitus with other diabetic kidney complication E11.29 [place] [id number] [place] [address] Feb, Type 2 diabetes mellitus with other diabetic kidney complication E11.29 [place] [id number] [place] [address] Feb, Type 2 diabetes mellitus with other diabetic kidney complication E11.29 [place] [id number] [place] [address] Feb, Gastroesophageal reflux disease without esophagitis K21.9 [place] [id number] [place] [address] Feb, Type 2 diabetes mellitus with other diabetic kidney complication E11.29 [facility] [address], [place] [address] Feb, jail current use of anticoagulant Z79.01 [facility] [address], [place] [address] Jan, Type 2 diabetes mellitus with other diabetic kidney complication E11.29 [facility] [address], [place] [address] Jan, Type 2 diabetes mellitus with other diabetic kidney complication E11.29 [facility] [address], [place] [address] Jan, Chronic pain syndrome G89.4 [facility] [address], [place] [address] Jan, [facility] [address], [place] [address] Jan, [facility] [address], [place] [address] Jan, [facility] [address], [place] [address] Jan, [facility] [address], [place] [address] Jan, Primary insomnia F51.01 ; Type 2 diabetes mellitus with other diabetic kidney complication E11.29 ; Chronic pain syndrome G89.4 and Essential hypertension I10 [facility] [address], [place] [address] Jan, Primary insomnia F51.01 [facility] [address], [place] [address] Jan, Type 2 diabetes mellitus with other diabetic kidney complication E11.29 [facility] [address], [place] [address] Jan, [facility] [id number] [place] [address] Jan, Chronic obstructive pulmonary disease, unspecified COPD type J44.9 [facility] [id number] [place] [address] Jan, Essential hypertension I10 ; Type 2 diabetes mellitus with other diabetic kidney complication E11.29 ; Chronic obstructive pulmonary disease, unspecified COPD type J44.9 ; Chronic kidney disease, stage 4 (severe) N18.4 ; Right carpal tunnel syndrome G56.01 ; 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 ; jail (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 and Diabetic polyneuropathy associated with type 2 diabetes mellitus E11.42 [place] [id number] [place] [address] Jan, Gastroesophageal reflux disease without esophagitis K21.9 [facility] [id number] [place] [address] Dec, [facility] [id number] [place] [address] Dec, [facility] [id number] [place] [address] Dec, jail current use of anticoagulant Z79.01 ; Chronic pain syndrome G89.4 and Essential hypertension I10 [facility] [id number] [place] [address] Dec, [facility] [id number] [place] [address] Dec, Type 2 diabetes mellitus with other diabetic kidney complication E11.29 [facility] [id number] [place] [address] Dec, [facility] [id number] [place] [address] Dec, Gastroesophageal reflux disease without esophagitis K21.9 [facility] [id number] [place] [address] November, Type 2 diabetes mellitus with other diabetic kidney complication E11.29 [facility] [address], [place] [address] November, [facility] [address] [place] [address] November, Type 2 diabetes mellitus with other diabetic kidney complication E11.29 [facility] [address], [place] [address] November, [facility] [address], [place] [address] November, Type 2 diabetes mellitus with other diabetic kidney complication E11.29 [facility] [id number] [place] [address] November, [facility] [address] [address] Oct, Essential hypertension I10 [facility] [id number] [place] [address] Oct, Psoriasis of scalp L40.9 [facility] [id number] [place] [address] Oct, Essential hypertension I10 and Chronic pain syndrome G89.4 [facility] [address], [place] [address] Oct, [facility] [address], [place] [address] Sep, Type 2 diabetes mellitus with other diabetic kidney complication E11.29 [facility] [address], [place] [address] Sep, [facility] [id number] [place] [address] Sep, Type 2 diabetes mellitus with other diabetic kidney complication E11.29 [facility] [address], [place] [address] 20 Mar, 2017 Type 2 diabetes mellitus with other diabetic kidney complication E11.29 [place] [id number] [place] [address] 09 Sep, 2016 Type 2 diabetes mellitus [...] extremity R20.2 and Psoriasis of scalp L40.9 [place] [id number] [place] [address] Sep, [address] [address] Aug, Essential hypertension I10 [place] [id number] [place] [address] Aug, History of DVT (deep vein thrombosis) Z86.718 [place] [id number] [place] [address] Aug, [place] [id number] [place] [address] Jul, [place] [id number] [place] [address] Jul, [place] [id number] [place] [address] Jul, jail current use of anticoagulant Z79.01 ; Chronic pain syndrome G89.4 and Chronic kidney disease, stage 4 (severe) N18.4 [place] [id number] [place] [address] Jul, [address] [place] [address] Jul, [facility] [address], [place] [address] Jul, [facility] [address], [place] [address] Jul, [place] [address], [place] [address] Jul, [place] [address] [place] [address] Jul, Type 2 diabetes mellitus with other diabetic kidney complication E11.29 [place] [id number] [place] [address] Jul, History of DVT (deep vein thrombosis) Z86.718 [place] [id number] [place] [address] Jun, [place] [id number] [place] [address] Jun, History of DVT (deep vein thrombosis) Z86.718 [place] [id number] [place] [address] 15 Jun, 2016 Post traumatic stress disorder (PTSD) F43.[address] [place] [address] 07 Jun, 2016 Type 2 diabetes mellitus [...] pain M79.641 and Right wrist pain M25.531 [facility] [address], [place] [address] May, [facility] [id number] [place] [address] May, [facility] [id number] [place] [address] May, [facility] [id number] [place] [id number] May, [facility] [id number] [place] [id number] May, Anemia in other chronic diseases classified elsewhere D63.8 [facility] [id number] [place] [phone] May, [facility] [id number] [place] [id number] Apr, [facility] [id number] [place] [phone] 27 Mar, 2016 Dermatofibroma D23.9 [facility] [id number] [phone] Mar, [facility] [id number] [place] [id number] 14 Mar, 2016 Chronic pain syndrome G89.4 [facility] [id number] [id number] 09 Mar, 2016 [facility] [id number] [place] [phone] 07 Mar, 2016 [facility] [id number] [place] [id number] 06 Mar, 2016 [facility] [id number] [place] [id number] Feb, [facility] [address] [id number] [place] [address] Feb, [facility] [id number] [place] [address] Feb, [facility] [id number] [place] [address] Feb, [facility] [id number] [place] [address] Feb, [facility] [id number] [place] [address] Feb, [facility] [id number] [place] [address] Feb, Type 2 diabetes mellitus with other [...] Renal failure, chronic, stage 4 (severe) N18.4 [facility] [address] [address] Feb, Skin tags, multiple acquired L91.8 [facility] [id number] [place] [address] Jan, [facility] [address] [id number] Jan, Dental examination Z01.20 [facility] [id number] [place] [address] Jan, [address] [place] [address] Jan, Type 2 diabetes mellitus with other [...] Renal failure, chronic, stage 4 (severe) N18.4 [address] [place] [address] Dec, Diabetes type 2, uncontrolled E11.65 [place] [id number] [place] [address] Dec, [address] [address] Dec, Type 2 diabetes mellitus with other [...] F32.9 [facility] [id number] [place] [address] [id number] Dec, Dental caries K02.9 [facility] [address] [id number] [place] [address] [id number] Dec, [facility] [address] [id number] [place] [id number] Dec, Dental examination Z01.20 [facility] [address] [id number] [id number] November, Dental examination Z01.20 and Dental caries K02.9 [facility] [address] [id number], [place] [id number] Oct, [facility] [id number] [place] [address] [id number] Oct, [facility] [address] [id number] [place] [address] [id number] Sep, [facility] [address] [id number] [place] [address] [id number] Sep, [facility] [address] [id number] [place] [address] [id number] Sep, [facility] [address] [id number] [place] [address] [id number] Sep, Other chronic pain 338.29 [facility] [address] [id number] [place] [address] [id number] Aug, Diabetes type 2, uncontrolled E11.65 and Morbid obesity due to excess calories E66.01 [facility] [address] [id number] [place] [address] [id number] Aug, Hair loss L65.9 [facility] [address] [id number] [id number] Aug, [facility] [address] [id number] [place] [address] [id number] Jul, [facility] [address] [id number], [place] [id number] Jul, [facility] [address] [id number] [place] [address] [id number] Jun, [facility] [address] [id number] [place] [address] [id number] Jun, Hair loss L65.9 and Disorder of the skin and subcutaneous tissue, unspecified L98.9 [id number] [place] [address] [id number] May, Type 2 diabetes mellitus with other diabetic kidney complication E11.29 ; Type 2 diabetes mellitus with hyperglycemia E11.65 ; Morbid obesity due to excess calories E66.01 and Essential hypertension I10 [place] [id number] [place] [address] [id number] May, Diabetes type 2, uncontrolled E11.65 ; Encounter for immunization Z23 and Morbid obesity due to excess calories E66.01 [place] [id number] [place] [address] [id number] May, [facility] [address] [address] Apr, [place] [id number] [place] [address] [id number] Apr, Hyperglycemia R73.[address] [id number] Apr, [address] [id number] Apr, Depression F32.9 ; Encounter for immunization Z23 ; Hyperglycemia R73.9 and Anemia in other chronic diseases classified elsewhere D63.8 [facility] [id number] [place] [address] [id number] Mar, [address] [place] [address] [id number] Feb, Positive occult stool blood test 792.1 [place] [id number] [place] [address] [id number] Feb, Depression 311 ; Other chronic pain 338.29 and Diabetes with renal manifestations, type II or unspecified type, not stated as uncontrolled 250.40 [facility] [id number] [place] [address] Feb, Occult blood in stools 792.1 [address] [place] [address] [id number] Feb, Anemia 285.9 ; Occult blood positive stool 792.1 ; Unspecified essential hypertension 401.9 and Other chronic pain 338.[address] [facility] [id number][place] [id number] Feb, [facility] [id number] [place] [address] [id number] Feb, Anemia 285.9 [facility] [id number], [place] [id number] Feb, [facility] [id number] [place] [address] [id number] Feb, [facility] [id number] [place] [address] [id number] Feb, Diabetes with renal manifestations, type II or unspecified type, not stated as uncontrolled 250.40 ; Other chronic pain 338.29 ; Unspecified essential hypertension 401.9 ; Anemia 285.9 and Depression 311 [facility] [id number] [place] [id number] Jan, [facility] [id number] [place] [address] [id number] Jan, Anemia 285.9 and Follow up V67.[address] [facility] [id number], [place] [id number] Jan, [facility] [id number] [place] [id number] Jan, [facility] [id number] [place] [address] [id number] Jan, [facility] [id number] [place] [address] [id number] Dec, [facility] [address] [place] [address] Oct, [facility] [id number] [place] [phone] Oct, [facility] [id number] [place] [address] Sep, [facility] [id number], [place] [id number] Sep, [facility] [id number] [place] [address] Sep, [facility] [address] [facility] [id number], [place] [id number] Aug, [facility] [place] [facility] [address] [facility] [id number], [place] [address] Aug, [facility] [place] [facility] [address] [id number], [place] [address] Aug, [facility] [address] [facility] [id number], [place] [id number] Aug, [facility] [place] [facility] [address], [place] [address] Aug, [facility] [place] [facility] [address], [place] [address] Aug, [facility] [id number], [place] [id number] Aug, [facility] [place] [facility] [address], [place] [address] Aug, [facility] [address] [id number], [place] [id number] Jul, [facility] [place] [facility] [address], [place] [address] Jul, [facility] [place] [facility] [address] [id number], [place] [address] Jul, [facility] [address] [facility] [id number], [place] [id number] Jul, [facility] [place] [facility] [address] [id number], [place] [address] Jul, [facility] [address] [facility] [id number], [place] [id number] Jul, [facility] [place] [facility] [address] [id number], [place] [address] Jul, [facility] [address] [id number], [place] [id number] Jun, [facility] [address] [id number], [place] [id number] Jun, [facility] [place] [facility] [address] [facility] [id number], [place] [address] Jun, [facility] [place] [facility] [address] [facility] [id number], [place] [address] Jun, [facility] [address] [facility] [id number], [place] [id number] Jun, [facility] [place] [facility] [address] [facility] [id number], [place] [address] Jun, [facility] [address] [facility] [id number], [place] [id number] May, [facility] [place] [facility] [address] [facility] [id number], [place] [address] May, [facility] [place] [facility] [address] [facility] [id number], [place] [address] May, [facility] [address] [facility] [id number], [place] [id number] Apr, [facility] [place] [facility] [address] [facility] [id number], [place] [address] Apr, [facility] [address] [facility] [id number], [place] [id number] Apr, [facility] [address] [facility] [id number], [place] [id number] Apr, [facility] [place] [facility] [address] [facility] [id number], [place] [address] Apr, [facility] [place] [facility] [address] [facility] [id number], [place] [address] Apr, [facility] [address] [facility] [id number], [place] [id number] Mar, [facility] [place] [facility] [address] [facility] [id number], [place] [address] Mar, [facility] [address] [facility] [id number], [place] 626798460 Mar, [facility] [place] [facility] [address] [id number] [place] [address] Mar, [facility] [address] [id number] [place] [id number] Mar, [facility] [place] [facility] [address] [facility] [id number] [place] [address] Mar, [facility] [address] [id number] [place] [id number] Mar, [facility] [place] [facility] [address] [id number] [place] [address] Mar, [facility] [address] [id number] [place] [id number] Mar, [facility] [place] [facility] [address] [facility] [id number] [place] [address] Mar, [facility] [address] [facility] [id number] [place] [id number] Feb, [facility] [place] [facility] [address] [facility] [id number], [place] [address] Feb, [facility] [address] [facility] [id number] [place] [id number] Jan, [facility] [place] [facility] [address] [facility] [id number], [place] [address] Jan, [facility] [address] [facility] [id number] [place] [id number] Jan, [facility] [place] [facility] [address] [facility] [id number], [place] [address] Jan, [facility] [address] [id number] [place] [id number] Jan, [facility] [place] [facility] [address] [facility] [id number], [place] [address] Jan, [facility] [place] [facility] [address] [facility] [id number], [place] [address] Dec, [facility] [place] [facility] [address] [facility] [id number], [place] [address] Dec, [facility] [address] [id number] [place] [id number] November, [facility] [place] [facility] [address] [id number] [place] [address] November, [facility] [address] [id number] [place] [id number] November, [facility] [place] [facility] [address] [id number] [place] [address] November, [facility] [address] [id number] [place] [id number] Oct, [facility] [place] [facility] [address] [id number] [place] [address] Oct, [facility] [place] [facility] [address] [facility] [id number] [place] [address] Oct, [facility] [place] [facility] [address] [facility] [id number] [place] [address] Oct, [facility] [place] [facility] [address] [facility] [id number] [place] [address] Oct, [facility] [place] [facility] [address] [facility] [id number] [place] [address] Oct, [facility] [address] [id number] [place] [id number] Sep, [facility] [address] [id number] [place] 1244148[address] Sep, [facility] [place] [facility] [address] [id number] [place] [address] Sep, [facility] [place] [facility] [address] [id number] [place] [address] Sep, [facility] [address] [id number] [place] [id number] Sep, [facility] [place] [facility] [address] [id number] [place] [address] Sep, [facility] [place] [facility] [address] [facility] [id number], [place] [address] Aug, [facility] [place] [facility] [address] [facility] [id number], [place] [address] Aug, [facility] [address] [id number], [place] [id number] Aug, [facility] [address] [facility] [id number] [place] [id number] Aug, [facility] [place] [facility] [address] [facility] [id number], [place] [address] Aug, [facility] [address] [facility] [id number], [place] [id number] Aug, [facility] [place] [facility] [address] [id number], [place] [address] Aug, [facility] [address] [id number], [place] 364258769 Aug, [facility] [place] [facility] [address]005[address], [place] [address] Aug, [facility] [address] [facility] [id number], [place] [id number] Aug, [facility] [place] [facility] [address]005[address], [place] [address] Aug, [facility] [address] [id number], [place] [id number] Aug, [facility] [place] [facility] [address]005[address]100[place], [place] [address] Aug, [facility] [place] [facility] [address] [facility] [id number], [place] [address] Jul, [facility] [address] [facility] [id number], [place] [id number] Jun, [facility] [place] [facility] [address] [id number], [place] [address] Jun, [facility] [place] [facility] [address], [place] [address] Jun, [facility] [place] [facility] [address] [id number], [place] [address] Jun, [facility] [address] [facility] [id number], [place] 977855626 Jun, [facility] [place] [facility] [address] [facility] [id number], [place] [address] Jun, [facility] [place] [facility] [address] [facility] [id number], [place] [address] Jun, [facility] [address] [facility] [id number], [place] [id number] Jun, [facility] [place] [facility] [address] [id number], [place] [address] Jun, [facility] [place] [facility] [address] [id number], [place] [address] May, [facility] [address] [id number], [place] 696891984 May, [facility] [place] [facility] [address] [id number], [place] [address] May, [facility] [place] [facility] [address] [id number], [place] [address] May, [facility] [place] [facility] [address], [place] [address] May, [facility] [place] [facility] [address] [facility] [id number], [place] [address] May, [facility] [address] [facility] [id number], [place] 856772585 May, [facility] [place] [facility] [address] [facility] [id number], [place] [address] May, [facility] [address] [facility] [id number], [place] 107014626 May, [facility] [place] [facility] [address] [id number], [place] [address] May, [facility] [address] [facility] [id number], [place] 517944428 Apr, [facility] [place] [facility] [address] [facility] [id number], [place] [address] Apr, [facility] [place] [facility] [address] [facility] [id number], [place] [address] Apr, [facility] [address] [facility] [id number], [place] [id number] Apr, [facility] [place] [facility] [address] [facility] [id number], [place] [address] Apr, [facility] [place] [facility] [address] [facility] [id number], [place] [address] Apr, [facility] [address] [id number], [place] 935155927 Apr, [facility] [place] [facility] [address]005[address], [place] [address] Apr, [facility] [place] [facility] [address] [facility] [id number], [place] [address] Apr, [facility] [place] [facility] [address] [facility] [id number], [place] [address] Apr, [facility] [id number], [place] 529002785 Apr, [facility] [place] [facility] [address] [facility] [id number], [place] [address] Apr, [facility] [address] [facility] [id number], [place] 612320735 Apr, [facility] [place] [facility] [address] [facility] [id number], [place] [address] Apr, [facility] [address] [facility] [id number], [place] 207530102 Apr, [facility] [place] [facility] [address], [place] [address] Apr, [facility] [place] [facility] [address] [facility] [id number], [place] [address] Apr, [facility] [address] [facility] [id number], [place] [address] Apr, [facility] [place] [address] [id number][place] [id number] Apr, [facility] [address] [facility] [id number], [place] [address] Mar, [facility] [address] [facility] [id number], [place] [address] Mar, [facility] [place] [address] [id number] [place] [id number] Mar, [facility] [place] [address] [id number] [place] [id number] Mar, [facility] [place] [address] [id number] [place] [id number] Mar, [facility] [place] [address] [id number] [place] [id number] Feb, [facility] [place] [address] [id number] [place] [id number] Feb, [facility] [place] [address] [id number] [place] [id number] Feb, [facility] [address] [facility] [id number], [place] [address] Feb, [facility] [place] [address] [id number] [place] [id number] Feb, [facility] [place] [address] [id number] [place] [id number] Feb, [facility] [place] [address] [id number] [place] [id number] Feb, [facility] [place] [address] [id number] [place] [id number] Feb, [facility] [place] [address] [id number] [place] [id number] Feb, [facility] [place] [address] [id number] [place] [id number] Jan, [facility] [place] [address] [id number] [place] [id number] Jan, [facility] [place] [address] [id number] [place] [id number] Jan, [facility] [place] [address] [id number] [place] [id number] Jan, [facility] [place] [address] [id number] [place] [id number] Jan, [facility] [address] [address] Jan, [facility] [place] [address] [id number] [place] [address] Jan, [facility] [place] [address] [id number] [place] [id number] Jan, [facility] [place] [address] [id number] [place] [id number] Dec, [facility] [place] [address] [id number] [place] [id number] November, [facility] [place] [address] [id number] [place] [id number] November, [facility] [place] [address] [id number] [place] [id number] November, [facility] [place] [address] [id number] [place] [id number] November, [facility] [place] [address] [id number] [place] [id number] November, [facility] [place] [address] [id number] [place] [id number] November, [facility] [place] [address] [id number] [place] [address] Jul, [facility] [place] [address] [id number] [place] [id number] Jul, [facility] [place] [address] [id number] [place] [address] Jul, [facility] [place] [address] [id number] [place] [id number] Jun, [facility] [address] [address] Jun, [facility] [place] [address] [id number][place] [address] May, [facility] [address] [facility] [id number], [place] [address] May, [facility] [place] [address] [id number][place] [id number] May, [facility] [address] [facility] [id number], [place] [address] May, [facility] [place] [address] [id number] [place] [id number] May, [facility] [address] [facility] [id number], [place] [address] May, [facility] [place] [address] [facility] [id number][place] [id number] Apr, [facility] [address] [facility] [id number], [place] [address] Apr, [facility] [address] [facility] [id number], [place] [address] Apr, [facility] [place] [address] [id number], [place] [id number] Apr, [facility] [place] [address] [id number], [place] [address] Apr, [facility] [address] [facility] [id number], [place] [address] Apr, [facility] [address] [facility] [id number], [place] [address] Apr, [facility] [place] [address] [id number], [place] [id number] Apr, [facility] [address] [facility] [id number], [place] [address] Apr, [facility] [place] [address] [id number], [place] [id number] Apr, [facility] [place] [address] [id number] [place] [address] Apr, [facility] [place] [address] [id number] [place] [address] Mar, [facility] [place] [address] [address] [id number] [place] [id number] Feb, [facility] [place] [address] [id number] [place] [id number] Jan, [facility] [place] [address] [id number] [place] [id number] Dec, [facility] [place] [address] [id number] [place] [id number] Dec, [facility] [place] [address] [id number] [place] [id number] Dec, [facility] [place] [address] [id number] [place] [id number] Dec, [facility] [place] [address] [id number] [place] [id number] Dec, [facility] [place] [address] [id number] [place] [id number] November, [facility] [place] [address] [id number] [place] [id number] November, [facility] [place] [address] [id number] [place] [id number] November, [facility] [address] [facility] [id number] [address] November, [facility] [place] [address] [id number] [place] [id number] November, [facility] [place] [address] [id number] [place] [id number] November, [facility] [place] [address] [id number] [place] [id number] Oct, [facility] [place] [address] [id number] [place] [id number] Oct, [facility] [place] [address] [id number] [place] [id number] Oct, [facility] [place] [address] [id number] [place] [id number] Oct, [facility] [place] [address] [id number] [place] [id number] Oct, [facility] [place] [address] [id number] [place] [id number] Oct, [facility] [place] [address] [id number] [place] [id number] Sep, [facility] [place] [address] [id number] [place] [id number] Aug, [facility] [place] [address] [id number] [place] [id number] Aug, [facility] [place] [address] [id number] [place] [id number] Jul, [facility] [place] [facility] [address] [id number] [address] Jun, [facility] [place] [facility] [id number] [place] [address] Jun, [facility] [place] [facility] [address] [id number] [address] Jun, [facility] [place] [facility] [id number] [place] [address] Jun, [facility] [place] [facility] [address] [id number] [address] May, [facility] [place] [facility] [address] [id number], [place] [address] May, [facility] [place] [facility] [id number] [address] Apr, [facility] [place] [facility] [id number] [place] [address] Apr, [facility] [place] [facility] [address] [id number] [address] Apr, [facility] [place] [facility] [id number] [address] Feb, [facility] [place] [facility] [address] [id number] [place] [address] 15 Aug, 2010 [facility] [place] [facility] [address] [id number] [place] [address] 18 Jul, 2010 [facility] [place] [facility] [address] [id number] [place] [address] 30 Jun, 2010 [facility] [place] [facility] [address] [id number] [place] [address] 29 May, 2010 [facility] [place] [facility] [address] [id number] [place] [address] May, [facility] [place] [facility] [address] [id number] [place] [address] May, [facility] [place] [facility] [address] [id number] [place] [address] May, [facility] [place] [facility] [address] [id number] [place] [address] May, [facility] [place] [facility] [address] [id number] [place] [address] 16 Aug, 2009 [facility] [place] [facility] [address] [id number] [place] [address] Jun, [facility] [place] [facility] [address] [id number] [place] [address] Jun, [facility] [place] [facility] [address] [id number] [place] [address] Jun, [facility] [place] [facility] [address] [id number] [place] [address] 24 May, 2009 [facility] [place] [facility] [address] [id number] [place] [address] 28 Apr, 2009 [facility] [place] [facility] [address] [id number] [place] [address] Apr, [facility] [place] [facility] [address] [id number] [place] [address] Apr, [facility] [address] [facility] [id number] [place] [address] Jan, [facility] [address] [facility] [id number], [place] [address] Oct, [facility] [address] [facility] [id number], [place] [address] May, [facility] [address] [facility] [id number], [place] [address] May, IMMUNIZATIONS No Known Immunizations SOCIAL HISTORY Never Assessed REASON FOR VISIT Home Health Services PLAN OF CARE VITAL SIGNS MEDICATIONS Unknown [...] Dialysis [facility] 2012 -Dr. Simon now [facility] Medical History Colonoscopy (polyps 2 ) [...]
--- OUTSIDE RECORDS SUMMARY | 2018-12-28 17:53 | XMS REPORT ---
Author Author ASYA SNOW [facility] Address [address] [place] [address] Care Team Providers Care Train Operations Supervisor Name Role Phone ASYA SNOW Unavailable PROBLEMS Type Condition ICD9-CM Code ZMB94-CW Code Onset Dates Condition Status SNOMED Code Problem Chronic kidney disease, stage 4 (severe) N18.4 Active 242287354 Problem Psoriasis of scalp L40.9 Active 587193784 Problem Type 2 diabetes mellitus with hyperglycemia E11.65 Active 597642693808201 Problem Fibromyalgia M79.7 Active 623962442 Problem History of DVT (deep vein thrombosis) Z86.718 Active 670402382 Problem Carpal tunnel syndrome, bilateral G56.03 Active 72678820147379372 Problem Type 2 diabetes mellitus with other diabetic kidney complication E11.29 Active 400079917 Problem Anemia in other chronic diseases classified elsewhere D63.8 Active 387386161 Problem 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 Active 771836768 Problem Paresthesia of right upper extremity R20.2 Active 99964532 Problem Bilateral lower extremity edema R60.0 Active 221241252 Problem Supplemental oxygen dependent Z99.81 Active 231053005523 Problem Sleep apnea in adult G47.33 Active 94713553 Problem Chronic pain syndrome G89.4 Active 104110879 Problem snf current use of anticoagulant Z79.01 Active 671118554 Problem Essential hypertension I10 Active 49517173 Problem Gastroesophageal reflux disease without esophagitis K21.9 Active 834189133 Problem Chronic obstructive pulmonary disease, unspecified COPD type J44.9 Active 74118260 Problem 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 Active 181063912404157 Problem Primary insomnia F51.01 Active 1832898 Problem Oxygen desaturation during sleep G47.34 Active 357157323 Problem Right carpal tunnel syndrome G56.01 Active 112562691764567 Problem Diabetic polyneuropathy associated with type 2 diabetes mellitus E11.42 Active 99106046 Problem Depression, unspecified depression type F32.9 Active 33896982 ALLERGIES No Information ENCOUNTERS Encounter Location Date Diagnosis [facility] [address], [place] [address] Feb, [facility] [address], [place] [address] Feb, [facility] [address], [place] [address] Jan, [facility] [address], [place] [address] Jan, [facility] [address], [place] [address] Jan, [address] [id number] Jan, [facility] [address], [place] [address] Jan, [facility] [address], [place] [address] Jan, [facility] [address], [place] [address] Jan, Essential hypertension I10 [facility] [address], [place] [address] Jan, Chronic obstructive pulmonary disease, unspecified COPD type J44.9 [facility] [address], [place] [address] Jan, [facility] [address], [place] [address] Jan, [facility] [address], [place] [address] Jan, Type 2 diabetes mellitus with other diabetic kidney complication E11.29 ; Anemia in other chronic diseases classified elsewhere D63.8 ; Chronic obstructive pulmonary disease, unspecified COPD type J44.9 and BMI 60.0-69.9, adult Z68.44 [facility] [address] [address] Jan, [facility] [id number] [place] [address] Jan, [facility] [id number] [id number] Jan, [facility] [id number] [place] [id number] Dec, [facility] [id number] [place] [id number] Dec, [facility] [id number] [place] [phone] Dec, Essential hypertension I10 ; Type 2 diabetes mellitus with other diabetic kidney complication E11.29 ; Depression, unspecified depression type F32.9 ; Supplemental oxygen dependent Z99.81 ; Chronic pain syndrome G89.4 ; Fibromyalgia M79.7 ; Carpal tunnel syndrome, bilateral G56.03 and Chronic kidney disease, stage 4 (severe) N18.4 [facility] [address] [place] [address] Dec, Essential hypertension I10 [facility] [id number] [place] [address] November, Type 2 diabetes mellitus with other diabetic kidney complication E11.29 [facility] [address] [address] November, Chronic pain syndrome G89.4 [facility] [address], [place] [address] November, [facility] [id number] [place] [address] November, [facility] [id number] [place] [address] November, [facility] [address], [place] [address] Oct, Type 2 diabetes mellitus with other diabetic kidney complication E11.29 [facility] [address], [place] [address] Oct, Primary insomnia F51.01 [place] [address] [id number] [id number] Oct, Bilateral lower extremity edema R60.0 [facility] [address] [place] [address] Oct, [place] [id number] [place] [address] Sep, Type 2 diabetes mellitus with other diabetic kidney complication E11.29 and Chronic obstructive pulmonary disease, unspecified COPD type J44.9 [facility] [address] [place] [address] 15 Aug, 2017 Type 2 diabetes mellitus with other diabetic kidney complication E11.29 [address] [place] [address] 12 Aug, 2017 Gastroesophageal reflux disease without esophagitis K21.9 ; watermelon inspector current use of anticoagulant Z79.01 ; Chronic pain syndrome G89.4 ; Essential hypertension I10 and Type 2 diabetes mellitus with other diabetic kidney complication E11.29 [facility] [address], [place] [address] 08 Aug, 2017 Chronic pain syndrome G89.4 [facility] [address] [place] [address] Aug, Type 2 diabetes mellitus with other diabetic kidney complication E11.29 [facility] [address], [place] [address] Jul, Diabetic polyneuropathy associated with type 2 diabetes mellitus E11.42 [facility] [address] [place] [address] Jul, Primary insomnia F51.01 [facility] [address], [place] [address] Jul, [facility] [address], [place] [address] Jul, Type 2 diabetes mellitus with other diabetic kidney complication E11.29 and Chronic obstructive pulmonary disease, unspecified COPD type J44.9 [facility] [address] [place] [address] Jul, Type 2 diabetes mellitus with other diabetic kidney complication E11.29 [facility] [id number] [place] [address] Jun, Type 2 diabetes mellitus with other diabetic kidney complication E11.29 [facility] [id number] [place] [address] 27 Jun, 2017 [facility] [id number] [place] [address] Jun, Chronic obstructive pulmonary disease, unspecified COPD type J44.9 [facility] [id number] [place] [address] May, Type 2 diabetes mellitus with other diabetic kidney complication E11.29 [facility] [id number] [place] [address] May, watermelon inspector current use of anticoagulant Z79.01 and Essential hypertension I10 [address] [place] [address] May, Anemia in other chronic diseases classified elsewhere D63.8 ; Chronic obstructive pulmonary disease, unspecified COPD type J44.9 ; Oxygen desaturation during sleep G47.34 ; Sleep apnea in adult G47.33 and Supplemental oxygen dependent Z99.81 [address] [place] [address] May, Type 2 diabetes mellitus with other diabetic kidney complication E11.29 ; Essential hypertension I10 ; Chronic pain syndrome G89.4 ; BMI 40.0- 44.9, adult Z68.41 ; Gastroesophageal reflux disease without esophagitis K21.9 ; snf current use of anticoagulant Z79.01 ; snf 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 ; Diabetic polyneuropathy associated with type 2 diabetes mellitus E11.42 ; Edema of both legs R60.0 and Supplemental oxygen dependent Z99.81 [facility] [id number] [place] [address] May, [facility] [id number] [place] [address] May, Essential hypertension I10 and Gastroesophageal reflux disease without esophagitis K21.9 [facility] [address] [address] May, [facility] [address] [address] May, Type 2 diabetes mellitus with other diabetic kidney complication E11.29 and snf current use of anticoagulant Z79.01 [facility] [id number] [place] [address] Apr, Chronic pain syndrome G89.4 and Essential hypertension I10 [facility] [id number] [place] [address] Apr, Type 2 diabetes mellitus with other diabetic kidney complication E11.29 [facility] [id number] [place] [address] Apr, Type 2 diabetes mellitus with other diabetic kidney complication E11.29 [facility] [id number] [place] [address] Apr, Essential hypertension I10 [facility] [id number] [place] [address] Apr, Gastroesophageal reflux disease without esophagitis K21.9 [facility] [id number] [place] [address] Apr, Type 2 diabetes mellitus with other diabetic kidney complication E11.29 [facility] [id number] [place] [address] Apr, Type 2 diabetes mellitus with other diabetic kidney complication E11.29 and watermelon inspector current use of anticoagulant Z79.01 [facility] [address], [place] [address] 27 Mar, 2017 Encounter for immunization Z23 and Preoperative examination Z01.818 [facility] [id number] [place] [address] Mar, [facility] [id number] [place] [address] Mar, Type 2 diabetes mellitus with other diabetic kidney complication E11.29 [facility] [id number] [place] [address] 08 Mar, 2017 Type 2 diabetes mellitus with other diabetic kidney complication E11.29 [facility] [id number] [place] [address] Mar, Gastroesophageal reflux disease without esophagitis K21.9 [facility] [id number] [place] [address] Mar, Essential hypertension I10 [facility] [id number] [place] [address] Feb, watermelon inspector current use of anticoagulant Z79.01 [facility] [id number] [place] [address] Feb, Type 2 diabetes mellitus with other diabetic kidney complication E11.29 [facility] [id number] [place] [address] Feb, Type 2 diabetes mellitus with other diabetic kidney complication E11.29 [facility] [id number] [place] [address] Feb, Type 2 diabetes mellitus with other diabetic kidney complication E11.29 [facility] [id number] [place] [address] Feb, Gastroesophageal reflux disease without esophagitis K21.9 [facility] [id number] [place] [address] 03 Aug, 2017 Type 2 diabetes mellitus with other diabetic kidney complication E11.29 [facility] [address], [place] [address] Feb, snf current use of anticoagulant Z79.01 [facility] [address], [place] [address] Jan, Type 2 diabetes mellitus with other diabetic kidney complication E11.29 [facility] [id number] [place] [address] Jan, Type 2 diabetes mellitus with other diabetic kidney complication E11.29 [facility] [address], [place] [address] Jan, Chronic pain syndrome G89.4 [facility] [address], [place] [address] Jan, [facility] [id number] [place] [address] Jan, [facility] [address], [place] [address] Jan, [facility] [id number] [place] [address] Jan, [facility] [address], [place] [address] Jan, Primary insomnia F51.01 ; Type 2 diabetes mellitus with other diabetic kidney complication E11.29 ; Chronic pain syndrome G89.4 and Essential hypertension I10 [facility] [address], [place] [address] Jan, Primary insomnia F51.01 [facility] [id number] [place] [address] Jan, Type 2 diabetes mellitus with other diabetic kidney complication E11.29 [facility] [address], [place] [address] Jan, [facility] [address] [place] [address] Jan, 2017 Chronic obstructive pulmonary disease, unspecified COPD type J44.9 [facility] [id number] [place] [address] Jan, Essential hypertension I10 ; Type 2 diabetes mellitus with other diabetic kidney complication E11.29 ; Chronic obstructive pulmonary disease, unspecified COPD type J44.9 ; Chronic kidney disease, stage 4 (severe) N18.4 ; Right carpal tunnel syndrome G56.01 ; 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 ; watermelon inspector (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 and Diabetic polyneuropathy associated with type 2 diabetes mellitus E11.42 [facility] [id number] [place] [address] Jan, Gastroesophageal reflux disease without esophagitis K21.9 [facility] [id number] [place] [address] Dec, [facility] [id number] [place] [address] Dec, [facility] [id number] [place] [address] Dec, watermelon inspector current use of anticoagulant Z79.01 ; Chronic pain syndrome G89.4 and Essential hypertension I10 [facility] [address], [place] [address] Dec, [facility] [id number] [place] [address] Dec, Type 2 diabetes mellitus with other diabetic kidney complication E11.29 [facility] [address], [place] [address] Dec, [facility] [id number] [place] [address] Dec, Gastroesophageal reflux disease without esophagitis K21.9 [facility] [id number] [place] [address] 24 May, 2017 Type 2 diabetes mellitus with other diabetic kidney complication E11.29 [facility] [address], [place] [address] November, [facility] [address] [place] [address] November, Type 2 diabetes mellitus with other diabetic kidney complication E11.29 [facility] [address] [place] [address] November, [facility] [address] [place] [address] November, Type 2 diabetes mellitus with other diabetic kidney complication E11.29 [facility] [id number] [place] [address] November, [facility] [id number] [place] [address] Oct, Essential hypertension I10 [facility] [id number] [place] [address] Oct, Psoriasis of scalp L40.9 [facility] [id number] [place] [address] Oct, Essential hypertension I10 and Chronic pain syndrome G89.4 [facility] [address] [place] [address] Oct, [facility] [address] [place] [address] Sep, Type 2 diabetes mellitus with other diabetic kidney complication E11.29 [facility] [address], [place] [address] Sep, [facility] [id number] [place] [address] Sep, Type 2 diabetes mellitus with other diabetic kidney complication E11.29 [facility] [address], [place] [address] Sep, Type 2 diabetes mellitus with other diabetic kidney complication E11.29 [facility] [id number] [place] [address] 09 Sep, 2017 Type 2 diabetes mellitus with other diabetic kidney complication E11.29 ; Chronic kidney disease, stage 4 (severe) N18.4 ; Chronic obstructive pulmonary disease, unspecified COPD type J44.9 ; Iron deficiency anemia due to chronic blood loss D50.0 ; snf current use of anticoagulant Z79.01 ; Gastroesophageal reflux disease without esophagitis K21.9 ; Essential hypertension I10 ; Primary insomnia F51.01 ; Depression, unspecified depression type F32.9 ; Chronic pain syndrome G89.4 ; Wrist pain, right M25.531 ; Paresthesia of right upper extremity R20.2 and Psoriasis of scalp L40.9 [facility] [address] [place] [address] Sep, [address] [address] Aug, Essential hypertension I10 [facility] [address] [address] Aug, History of DVT (deep vein thrombosis) Z86.718 [facility] [address] [place] [address] Aug, [facility] [id number] [place] [address] Jul, [facility] [address] [place] [address] Jul, [facility] [address] [place] [address] Jul, watermelon inspector current use of anticoagulant Z79.01 ; Chronic pain syndrome G89.4 and Chronic kidney disease, stage 4 (severe) N18.4 [facility] [address] [place] [address] Jul, [place] [address] [address] Jul, [facility] [address], [place] [address] Jul, [facility] [address] [place] [address] Jul, [facility] [address], [place] [address] Jul, [facility] [id number] [place] [address] Jul, Type 2 diabetes mellitus with other diabetic kidney complication E11.29 [facility] [id number] [place] [address] Jul, History of DVT (deep vein thrombosis) Z86.718 [facility] [address] [place] [address] Jun, [facility] [id number] [place] [address] Jun, History of DVT (deep vein thrombosis) Z86.718 [place] [id number] [place] [address] 15 Jun, 2016 Post traumatic stress disorder (PTSD) F43.10 [address], [place] [address] 07 Jun, 2016 Type 2 diabetes mellitus with other diabetic kidney complication E11.29 ; Diabetic polyneuropathy associated with type 2 diabetes mellitus E11.42 ; Iron deficiency anemia due to chronic blood loss D50.0 ; Chronic obstructive pulmonary disease, unspecified COPD type J44.9 ; watermelon inspector current use of anticoagulant Z79.01 ; [...] pain M79.641 and Right wrist pain M25.531 [facility] [id number] [place] [address] May, [facility] [id number] [place] [address] May, [facility] [address] [address] May, [facility] [id number] [place] [address] May, [facility] [id number] [place] [address] May, Anemia in other chronic diseases classified elsewhere D63.8 [facility] [address] [address] May, [facility] [id number] [place] [address] Apr, [facility] [id number] [place] [address] 27 Mar, 2016 Dermatofibroma D23.9 [facility] [id number] [place] [address] 20 Mar, 2016 [facility] [id number] [place] [address] 14 Mar, 2016 Chronic pain syndrome G89.4 [facility] [id number] [place] [address] 09 Mar, 2016 [facility] [id number] [place] [address] 07 Mar, 2016 [facility] [id number] [place] [address] 06 Mar, 2016 [facility] [address] [place] [address] Feb, [facility] [address], [place] [address] Feb, [facility] [address], [place] [address] Feb, [facility] [id number] [place] [address] Feb, [facility] [id number] [place] [address] Feb, [facility] [id number] [place] [address] Feb, [facility] [id number] [place] [address] Feb, Type 2 diabetes mellitus with other [...] (severe) N18.4 [facility] [address], [place] [address] Feb, Skin tags, multiple acquired L91.8 [facility] [id number] [place] [address] Jan, [facility] [address] [place] [id number] Jan, Dental examination Z01.20 [facility] [id number] [place] [address] Jan, [facility] [address] [place] [address] Jan, Type 2 diabetes mellitus with other diabetic kidney complication E11.29 ; Diabetic polyneuropathy associated with type 2 diabetes mellitus E11.42 ; Iron deficiency anemia due to chronic blood loss D50.0 ; Chronic obstructive pulmonary disease, unspecified COPD type J44.9 ; watermelon inspector current use of anticoagulant Z79.01 ; [...] Renal failure, chronic, stage 4 (severe) N18.4 [place] [id number] [id number] [place] [address] Dec, Diabetes type 2, uncontrolled E11.65 [place] [id number] [place] [address] Dec, [place] [id number] [place] [address] Dec, Type 2 diabetes mellitus with other diabetic kidney complication E11.29 ; Diabetic polyneuropathy associated with type 2 diabetes mellitus E11.42 ; Iron deficiency anemia due to chronic blood loss D50.0 ; Chronic obstructive pulmonary disease, unspecified COPD type J44.9 ; watermelon inspector current use of anticoagulant Z79.01 ; History of DVT (deep vein thrombosis) Z86.718 ; Chronic pain syndrome G89.4 ; Oxygen desaturation during sleep G47.34 ; Sleep apnea in adult G47.33 ; Gastroesophageal reflux disease without esophagitis K21.9 ; Essential hypertension I10 ; Primary insomnia F51.01 and Depression, unspecified depression type F32.9 [facility] [address] [id number][place] [id number] Dec, Dental caries K02.9 [facility] [id number] [place] [address] [id number] Dec, [facility] [address] [id number] [place] [phone] Dec, Dental examination Z01.20 [facility] [address] [id number], [place] [id number] November, Dental examination Z01.20 and Dental caries K02.9 [facility] [address] [id number] [place] [id number] Oct, [facility] [address] [id number] [place] [address] [id number] Oct, [facility] [address] [id number] [place] [address] [id number] Sep, [facility] [address] [id number] [place] [address] [id number] Sep, [facility] [address] [id number] [place] [address] [id number] Sep, [facility] [address] [id number] [place] [address] [id number] Sep, Other chronic pain 338.29 [facility] [address] [id number] [place] [address] [id number] Aug, Diabetes type 2, uncontrolled E11.65 and Morbid obesity due to excess calories E66.01 [facility] [address] [id number] [place] [address] [id number] Aug, Hair loss L65.9 [facility] [address] [id number] [place] [id number] Aug, [facility] [id number] [place] [address] [id number] Jul, [facility] [address] [id number] [place] [id number] Jul, [facility] [address] [id number] [place] [address] [id number] Jun, [facility] [address] [id number] [place] [address] [id number] Jun, Hair loss L65.9 and Disorder of the skin and subcutaneous tissue, unspecified L98.9 [facility] [id number] [place] [address] [id number] May, Type 2 diabetes mellitus with other diabetic kidney complication E11.29 ; Type 2 diabetes mellitus with hyperglycemia E11.65 ; Morbid obesity due to excess calories E66.01 and Essential hypertension I10 [facility] [id number] [place] [address] [id number] May, Diabetes type 2, uncontrolled E11.65 ; Encounter for immunization Z23 and Morbid obesity due to excess calories E66.01 [facility] [id number] [place] [address] [id number] May, [facility] [address] [address] Apr, [address] [id number] Apr, Hyperglycemia R73.[address] [id number] Apr, [address] [id number] Apr, Depression F32.9 ; Encounter for immunization Z23 ; Hyperglycemia R73.9 and Anemia in other chronic diseases classified elsewhere D63.8 [facility] [id number] [place] [address] [id number] Mar, [place] [id number] [place] [address] [id number] Feb, Positive occult stool blood test 792.1 [place] [id number] [place] [address] [id number] Feb, Depression 311 ; Other chronic pain 338.29 and Diabetes with renal manifestations, type II or unspecified type, not stated as uncontrolled 250.40 [facility] [id number] [place] [address] Feb, Occult blood in stools 792.1 [place] [id number] [place] [address] [id number] Feb, Anemia 285.9 ; Occult blood positive stool 792.1 ; Unspecified essential hypertension 401.9 and Other chronic pain 338.29 [facility] [id number] [place] [id number] Feb, [facility] [place] [id number] [place] [address] [id number] Feb, Anemia 285.9 [facility] [place] [id number] [place] [address] [id number] Feb, [facility] [id number] [place] [address] [id number] Feb, [facility] [id number] [place] [address] [id number] Feb, Diabetes with renal manifestations, type II or unspecified type, not stated as uncontrolled 250.40 ; Other chronic pain 338.29 ; Unspecified essential hypertension 401.9 ; Anemia 285.9 and Depression 311 [facility] [id number] [place] [address] [id number] Jan, [facility] [id number] [place] [address] [id number] Jan, Anemia 285.9 and Follow up V67.9 [facility] [place] [id number] [place] [address] [id number] Jan, [facility] [id number] [place] [address] [id number] Jan, [facility] [id number] [place] [address] [id number] Jan, [facility] [id number] [place] [address] [id number] Dec, [facility] [id number] [place] [address] Oct, [facility] [id number] [place] [address] Oct, [facility] [id number] [place] [address] Sep, [facility] [address] [id number] [place] [id number] Sep, [facility] [id number] [place] [address] Sep, [facility] [place] [address] [id number] [place] [id number] Aug, [facility] [place] [facility] [address] [facility] [id number] [address] Aug, [facility] [place] [facility] [address] [facility] [id number] [place] [address] Aug, [facility] [place] [address] [id number] [place] [id number] Aug, [facility] [place] [facility] [address] [facility] [id number] [place] [address] Aug, [facility] [place] [facility] [address] [facility] [id number][place] [address] Aug, [facility] [place] [address] [facility] [id number] [place] [id number] Aug, [facility] [place] [facility] [address]00565100[place], [place] [address] Aug, [facility] [place] [address] [facility] [id number] [place] [id number] Jul, [facility] [place] [facility] [address]00565100[place], [place] [address] Jul, [facility] [place] [facility] [address] [facility] [id number][place] [address] Jul, [facility] [place] [address] [facility] [id number] [place] [id number] Jul, [facility] [place] [facility] [address] [facility] [id number], [place] [address] Jul, [facility] [place] [address] [facility] [id number] [place] [id number] Jul, [facility] [place] [facility] [address] [facility] [id number], [place] [address] Jul, [facility] [place] [address] [id number] [place] [id number] Jun, [facility] [place] [address] [facility] [id number] [place] [id number] Jun, [facility] [place] [facility] [address] [facility] [id number], [place] [address] Jun, [facility] [place] [facility] [address] [facility] [id number][place] [address] Jun, [facility] [place] [address] [facility] [id number] [place] [id number] Jun, [facility] [place] [facility] [address] [facility] [id number][place] [address] Jun, [facility] [place] [address] [facility] [id number] [place] [id number] May, [facility] [place] [facility] [address] [facility] [id number][place] [address] May, [facility] [place] [facility] [address]00565100[place], [place] [address] May, [facility] [place] [address] [facility] [id number] [place] [id number] Apr, [facility] [place] [facility] [address] [facility] [id number][place] [address] Apr, [facility] [place] [address] [facility] [id number] [place] [id number] Apr, [facility] [place] [address] [facility] [id number] [place] [id number] Apr, [facility] [place] [facility] [address] [facility] [id number][place] [address] Apr, [facility] [place] [facility] [address] [facility] [id number][place] [address] Apr, [facility] [place] [address] [facility] [id number] [place] [id number] Mar, [facility] [place] [facility] [address] [facility] [id number], [place] [address] Mar, [facility] [place] [address] [facility] [id number] [place] [id number] Mar, [facility] [place] [facility] [address] [id number], [place] [address] Mar, [facility] [place] [address] [id number] [place] [id number] Mar, [facility] [place] [facility] [address] [facility] [id number] [place] [address] Mar, [facility] [place] [address] [id number] [place] [id number] Mar, [facility] [place] [facility] [address] [facility] [id number] [place] [address] Mar, [facility] [place] [address] [id number] [place] [id number] Mar, [facility] [place] [facility] [address] [facility] [id number][place] [address] Mar, [facility] [place] [address] [facility] [id number] [place] [id number] Feb, [facility] [place] [facility] [address] [facility] [id number][place] [address] Feb, [facility] [place] [address] [facility] [id number] [place] [id number] Jan, [facility] [place] [facility] [address] [facility] [id number], [place] [address] Jan, [facility] [place] [address] [facility] [id number] [place] [id number] Jan, [facility] [place] [facility] [address] [facility] [id number], [place] [address] Jan, [facility] [place] [address] [facility] [id number] [place] [id number] Jan, [facility] [place] [facility] [address] [facility] [id number] [place] [address] Jan, [facility] [place] [facility] [address] [facility] [id number][place] [address] Dec, [facility] [place] [facility] [address] [facility] [id number], [place] [address] Dec, [facility] [place] [address] [id number] [place] [id number] November, [facility] [place] [facility] [address] [id number] [place] [address] November, [facility] [address] [id number] [place] [id number] November, [facility] [place] [facility] [address] [id number] [place] [address] November, [facility] [place] [address] [id number] [place] [id number] Oct, [facility] [place] [facility] [address] [id number] [place] [address] Oct, [facility] [place] [facility] [address] [facility] [id number] [place] [address] Oct, [facility] [place] [facility] [address] [facility] [id number] [place] [address] Oct, [facility] [place] [facility] [address] [facility] [id number][place] [address] Oct, [facility] [place] [facility] [address] [facility] [id number] [place] [address] Oct, [facility] [place] [address] [id number] [place] [id number] Sep, [facility] [place] [address] [id number] [place] [id number] Sep, [facility] [place] [facility] [address] [id number][place] [address] Sep, [facility] [place] [facility] [address] [id number] [place] [address] Sep, [facility] [place] [address] [id number] [place] [id number] Sep, [facility] [place] [facility] [address] [facility] [id number] [place] [address] Sep, [facility] [place] [facility] [address] [id number] [address] Aug, [facility] [place] [facility] [address] [facility] [id number], [place] [address] Aug, [facility] [place] [address] [facility] [id number] [place] [id number] Aug, [facility] [place] [address] [facility] [id number] [place] [id number] Aug, [facility] [place] [facility] [address] [facility] [id number], [place] [address] Aug, [facility] [place] [address] [facility] [id number] [place] [id number] Aug, [facility] [place] [facility] [address]00565100[place] [address] Aug, [facility] [place] [id number] [place] 846378907 Aug, [facility] [place] [facility] [address]00565100[place], [place] [address] Aug, [facility] [place] [address] [id number] [place] [id number] Aug, [facility] [place] [facility] [address]00565100[place], [place] [address] Aug, [facility] [place] [address] [id number] [place] [id number] Aug, [facility] [place] [facility] [address]00565100[place], [place] [address] Aug, [facility] [place] [facility] [address] [id number], [place] [address] Jul, [facility] [place] [address] [facility] [id number] [place] [id number] Jun, [facility] [place] [facility] [address] [id number] [address] Jun, [facility] [place] [facility] [address]00565100[place], [place] [address] Jun, [facility] [place] [facility] [address] [id number] [place] [address] Jun, [facility] [place] [address] [id number] [place] [id number] Jun, [facility] [place] [facility] [address] [facility] [id number] [place] [address] Jun, [facility] [place] [facility] [address] [id number] [place] [address] Jun, [facility] [place] [address] [facility] [id number] [place] [id number] Jun, [facility] [place] [facility] [address] [id number][place] [address] Jun, [facility] [place] [facility] [address] [facility] [id number] [address] May, [facility] [place] [address] [id number] [place] 679722024 May, [facility] [place] [facility] [address] [facility] [id number], [place] [address] May, [facility] [place] [facility] [address] [facility] [id number][place] [address] May, [facility] [place] [facility] [address] [facility] [id number], [place] [address] May, [facility] [place] [facility] [address] [facility] [id number], [place] [address] May, [facility] [place] [address] [facility] [id number] [place] 055198101 May, [facility] [place] [facility] [address] [facility] [id number], [place] [address] May, [facility] [place] [address] [facility] [id number] [place] 125785433 May, [facility] [place] [facility] [address] [facility] [id number], [place] [address] May, [facility] [place] [address] [facility] [id number] [place] [id number] Apr, [facility] [place] [facility] [address] [facility] [id number][place] [address] Apr, [facility] [place] [facility] [address] [facility] [id number], [place] [address] Apr, [facility] [address] [facility] [id number] [place] [id number] Apr, [facility] [place] [facility] [address] [facility] [id number], [place] [address] Apr, [facility] [place] [facility] [address] [facility] [id number], [place] [address] Apr, [facility] [place] [id number] [place] [id number] Apr, [facility] [place] [facility] [address]00565100[place], [place] [address] Apr, [facility] [place] [facility] [address]00565100[place], [place] [address] Apr, [facility] [place] [facility] [address]00565100[place], [place] [address] Apr, [facility] [place] [address]00565100[place] 6108[address]265 Apr, [facility] [place] [facility] [address] [facility] [id number], [place] [address] Apr, [facility] [address] [facility] [id number] [place] 901667397 Apr, [facility] [place] [facility] [address] [facility] [id number], [place] [address] Apr, [facility] [address] [facility] [id number] [place] 427090674 Apr, [facility] [place] [facility] [address] [facility] [id number], [place] [address] Apr, [facility] [place] [facility] [address] [facility] [id number], [place] [address] Apr, [facility] [address] [facility] [id number], [place] [address] Apr, [facility] [place] [address] [id number] [place] [address]44[address] Apr, [facility] [address] [facility] [id number], [place] [address] Mar, [facility] [address] [facility] [id number][place] [address] Mar, [facility] [place] [address] [id number] [place] 9175713[address] Mar, [facility] [place] [address] [id number] [place] 095530[address] Mar, [facility] [place] [address] [id number] [place] [id number] Mar, [facility] [place] [address] [id number] [place] 029079356 Feb, [facility] [place] [address] [id number] [place] [id number] Feb, [facility] [place] [address] [id number] [place] [id number] Feb, [facility] [address] [facility] [id number][place] [address] Feb, [facility] [place] [address] [id number] [place] [id number] Feb, [facility] [place] [address] [id number] [place] [id number] Feb, [facility] [place] [address] [id number] [place] 454780988 Feb, [facility] [place] [address] [id number] [place] [id number] Feb, [facility] [place] [address] [id number] [place] [id number] Feb, [facility] [place] [address] [id number] [place] [id number] Jan, [facility] [place] [address] [id number] [place] [id number] Jan, [facility] [place] [address] [id number] [place] [id number] Jan, [facility] [place] [address] [id number] [place] [id number] Jan, [facility] [place] [address] [id number] [place] [id number] Jan, [facility] [id number] [place] [id number] Jan, [facility] [place] [address] [id number] [place] [id number] Jan, [facility] [place] [address] [id number] [place] [id number] Jan, [facility] [place] [address] [id number] [place] [id number] Dec, [facility] [place] [address] [id number] [place] [id number] November, [facility] [place] [address] [id number] [place] [id number] November, [facility] [place] [address] [id number] [place] [id number] November, [facility] [place] [address] [id number] [place] [id number] November, [facility] [place] [address] [id number] [place] [id number] November, [facility] [place] [address] [id number] [place] [id number] November, [facility] [place] [address] [id number] [place] [id number] Jul, [facility] [place] [address] [id number] [place] [id number] Jul, [facility] [place] [address] [id number] [place] [id number] Jul, [facility] [place] [address] [id number] [place] [id number] Jun, [facility] [id number] [address] Jun, [facility] [place] [address] [id number] [place] [id number] May, [facility] [address] [facility] [id number], [place] [address] May, [facility] [place] [address] [id number] [place] [id number] May, [facility] [address] [facility] [id number], [place] [address] May, [facility] [place] [address] [id number] [place] [id number] May, [facility] [address] [facility] [id number] [address] May, [facility] [place] [address] [id number] [place] [id number] Apr, [facility] [id number], [place] [address] Apr, [facility] [address] [facility] [id number], [place] [address] Apr, [facility] [address] [id number] [place] [id number] Apr, [facility] [place] [address] [id number] [place] [id number] Apr, [facility] [id number], [place] [address] Apr, [facility] [address] [facility] [id number], [place] [address] Apr, [facility] [address] [id number] [place] [id number] Apr, [facility] [address] [facility] [id number], [place] [address] Apr, [facility] [address] [id number] [place] [id number] Apr, [facility] [place] [address] [id number] [place] [address] [place] [id number] Apr, [facility] [place] [address] [id number] [place] [id number] Mar, [facility] [place] [address] [id number] [place] [id number] Feb, [facility] [place] [address] [id number] [place] [id number] Jan, [facility] [place] [address] [id number] [place] [id number] Dec, [facility] [place] [address] [id number] [place] [id number] Dec, [facility] [place] [address] [id number] [place] [id number] Dec, [facility] [place] [address] [id number] [place] [id number] Dec, [facility] [place] [address] [id number] [place] [id number] Dec, [facility] [place] [address] [id number] [place] [id number] November, [facility] [place] [address] [id number] [place] [id number] November, [facility] [place] [address] [id number] [place] [id number] November, [facility] [address] [facility] [id number], [place] [address] November, [facility] [place] [address] [id number] [place] [id number] November, [facility] [place] [address] [id number] [place] [id number] November, [facility] [address] [id number] [place] [id number] Oct, [facility] [address] [id number] [place] [id number] Oct, [facility] [address] [id number] [place] [id number] Oct, [facility] [address] [id number] [place] [id number] Oct, [facility] [address] [id number] [place] [id number] Oct, [facility] [address] [id number] [place] [id number] Oct, [facility] [address] [id number] [place] [id number] Sep, [facility] [address] [id number] [place] [id number] Aug, [facility] [address] [id number] [place] [id number] Aug, [facility] [address] [id number] [place] [id number] Jul, [facility] [place] [facility] [address] [facility] [id number] [address] Jun, [facility] [place] [facility] [address] [id number] [address] Jun, [facility] [place] [facility] [id number] [address] Jun, [facility] [place] [facility] [id number], [place] [address] Jun, [facility] [place] [facility] [id number], [place] [address] May, [facility] [place] [facility] [id number], [place] [address] May, [facility] [place] [facility] [id number], [place] [address] Apr, [facility] [place] [facility] [address] [id number], [place] [address] Apr, [facility] [place] [facility] [id number], [place] [address] Apr, [facility] [place] [facility] [id number], [place] [address] Feb, [facility] [place] [facility] [id number] [place] [address] 15 Aug, 2010 [facility] [address] [id number] [place] [address] 18 Jul, 2010 [facility] [place] [facility] [address] [id number] [place] [address] 30 Jun, 2010 [facility] [address] [id number] [place] [address] 29 May, 2010 [facility] [place] [facility] [address] [id number] [place] [address] May, [facility] [address] [id number] [place] [address], [place] [address] May, [facility] [address] [facility] [id number] [place] [address] May, [facility] [address] [facility] [id number] [place] [address] May, [facility] [address] [id number] [place] [address] 16 Aug, 2009 [facility] [address] [facility] [id number] [place] [address] Jun, [facility] [address] [facility] [id number] [place] [address] Jun, [facility] [place] [facility] [address] [facility] [id number] [place] [address] Jun, [facility] [address] [id number], [place] [address] 24 May, 2009 [facility] [place] [facility] [address] [id number] [place] [address] 28 Apr, 2009 [facility] [place] [facility] [address] [facility] [id number] [place] [address] Apr, [facility] [address] [facility] [id number], [place] [address] Apr, [facility] [address] [facility] [id number] [place] [address] Jan, [facility] [address] [facility] [id number], [place] [address] Oct, [facility] [address] [facility] [id number], [place] [address] May, [facility] [address] [facility] [id number], [place] [address] May, IMMUNIZATIONS No Known Immunizations SOCIAL HISTORY Never Assessed REASON FOR VISIT Transfer to ER PLAN OF CARE VITAL SIGNS MEDICATIONS Unknown [...] Dialysis Ruthy Reveles 2012 -Dr. Simon now [facility] Medical History Colonoscopy (polyps 2 ) [...]
--- OUTSIDE RECORDS SUMMARY | 2018-12-28 17:54 | XMS REPORT ---
Author Author ASYA SNOW [facility] Address [address] [place] [address] Care Team Providers Care Truck Supervisor Name Role Phone ASYA SNOW Unavailable PROBLEMS Type Condition ICD9-CM Code UYH27-GJ Code Onset Dates Condition Status SNOMED Code Problem Chronic kidney disease, stage 4 (severe) N18.4 Active 372841223 Problem Psoriasis of scalp L40.9 Active 045041356 Problem Type 2 diabetes mellitus with hyperglycemia E11.65 Active 995669370097108 Problem Fibromyalgia M79.7 Active 886377644 Problem History of DVT (deep vein thrombosis) Z86.718 Active 577598030 Problem Carpal tunnel syndrome, bilateral G56.03 Active 93231268785631163 Problem Type 2 diabetes mellitus with other diabetic kidney complication E11.29 Active 932333487 Problem Anemia in other chronic diseases classified elsewhere D63.8 Active 311812908 Problem 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 Active 986611282 Problem Paresthesia of right upper extremity R20.2 Active 80166002 Problem Bilateral lower extremity edema R60.0 Active 725717223 Problem Supplemental oxygen dependent Z99.81 Active 168299871584 Problem Sleep apnea in adult G47.33 Active 76958744 Problem Chronic pain syndrome G89.4 Active 828174397 Problem retirement current use of anticoagulant Z79.01 Active 956669708 Problem Essential hypertension I10 Active 85179921 Problem Gastroesophageal reflux disease without esophagitis K21.9 Active 999041004 Problem Chronic obstructive pulmonary disease, unspecified COPD type J44.9 Active 27517841 Problem 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 Active 296420940251398 Problem Primary insomnia F51.01 Active 0627761 Problem Oxygen desaturation during sleep G47.34 Active 149020267 Problem Right carpal tunnel syndrome G56.01 Active 499466004211166 Problem Diabetic polyneuropathy associated with type 2 diabetes mellitus E11.42 Active 28283748 Problem Depression, unspecified depression type F32.9 Active 44920675 ALLERGIES No Information ENCOUNTERS Encounter Location Date Diagnosis [facility] [address] [address] Feb, [facility] [address] [address] Feb, [facility] [address] [address] Jan, [facility] [address] [address] Jan, [facility] [address] [address] Jan, [address] [id number] Jan, [facility] [address] [address] Jan, [facility] [address] [address] Jan, [facility] [address] [address] Jan, Essential hypertension I10 [facility] [address] [address] Jan, Chronic obstructive pulmonary disease, unspecified COPD type J44.9 [facility] [address] [address] Jan, [facility] [address] [address] Jan, [facility] [address] [address] Jan, Type 2 diabetes mellitus with other diabetic kidney complication E11.29 ; Anemia in other chronic diseases classified elsewhere D63.8 ; Chronic obstructive pulmonary disease, unspecified COPD type J44.9 and BMI 60.0-69.9, adult Z68.44 [facility] [id number] [address] Jan, [facility] [id number] [place] [address] Jan, [facility] [id number] [id number] Jan, [facility] [id number] [place] [id number] Dec, [facility] [id number] [place] [id number] Dec, [facility] [id number] [place] [id number] Dec, Essential hypertension I10 ; Type 2 diabetes mellitus with other diabetic kidney complication E11.29 ; Depression, unspecified depression type F32.9 ; Supplemental oxygen dependent Z99.81 ; Chronic pain syndrome G89.4 ; Fibromyalgia M79.7 ; Carpal tunnel syndrome, bilateral G56.03 and Chronic kidney disease, stage 4 (severe) N18.4 [facility] [address] [place] [address] Dec, Essential hypertension I10 [facility] [id number] [place] [address] November, Type 2 diabetes mellitus with other diabetic kidney complication E11.29 [facility] [id number] [address] November, Chronic pain syndrome G89.4 [facility] [address] [address] November, [facility] [id number] [place] [address] November, [facility] [id number] [place] [address] November, [facility] [id number] [address] Oct, Type 2 diabetes mellitus with other diabetic kidney complication E11.29 [facility] [address] [address] Oct, Primary insomnia F51.01 [place] [id number] [id number] Oct, Bilateral lower extremity edema R60.0 [facility] [address] [place] [address] Oct, [facility] [id number] [place] [address] Sep, Type 2 diabetes mellitus with other diabetic kidney complication E11.29 and Chronic obstructive pulmonary disease, unspecified COPD type J44.9 [facility] [address] [place] [address] 15 Aug, 2017 Type 2 diabetes mellitus with other diabetic kidney complication E11.29 [address] [place] [address] 12 Aug, 2017 Gastroesophageal reflux disease without esophagitis K21.9 ; terminal worker 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 ; Chronic pain syndrome G89.4 ; Essential hypertension I10 and Type 2 diabetes mellitus with other diabetic kidney complication E11.29 [facility] [address] [address] 08 Aug, 2017 Chronic pain syndrome G89.4 [facility] [address] [place] [address] Aug, Type 2 diabetes mellitus with other diabetic kidney complication E11.29 [facility] [address] [address] Jul, Diabetic polyneuropathy associated with type 2 diabetes mellitus E11.42 [facility] [address] [place] [address] Jul, Primary insomnia F51.01 [facility] [address] [address] Jul, [facility] [facility] [address] [address] Jul, Type 2 diabetes mellitus with other diabetic kidney complication E11.29 and Chronic obstructive pulmonary disease, unspecified COPD type J44.9 [facility] [address] [place] [address] Jul, Type 2 diabetes mellitus with other diabetic kidney complication E11.29 [facility] [id number] [place] [address] Jun, Type 2 diabetes mellitus with other diabetic kidney complication E11.29 [facility] [id number] [place] [address] 27 Jun, 2017 [facility] [id number] [place] [address] Jun, Chronic obstructive pulmonary disease, unspecified COPD type J44.9 [facility] [id number] [place] [address] May, Type 2 diabetes mellitus with other diabetic kidney complication E11.29 [facility] [id number] [place] [address] May, 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 worker 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 and Essential hypertension I10 [address] [place] [address] May, Anemia in other chronic diseases classified elsewhere D63.8 ; Chronic obstructive pulmonary disease, unspecified COPD type J44.9 ; Oxygen desaturation during sleep G47.34 ; Sleep apnea in adult G47.33 and Supplemental oxygen dependent Z99.[address] [place] [address] May, Type 2 diabetes mellitus with other [...] and Supplemental oxygen dependent Z99.81 [facility] [id number] [place] [address] May, [facility] [id number] [place] [address] May, Essential hypertension I10 and Gastroesophageal reflux disease without esophagitis K21.9 [facility] [address] [address] May, [place] [facility] [address] [address] May, Type 2 diabetes mellitus with other diabetic kidney complication E11.29 and retirement current use of anticoagulant Z79.01 [facility] [id number] [place] [address] Apr, Chronic pain syndrome G89.4 and Essential hypertension I10 [facility] [id number] [place] [address] Apr, Type 2 diabetes mellitus with other diabetic kidney complication E11.29 [facility] [id number] [place] [address] Apr, Type 2 diabetes mellitus with other diabetic kidney complication E11.29 [facility] [id number] [place] [address] Apr, Essential hypertension I10 [facility] [id number] [place] [address] Apr, Gastroesophageal reflux disease without esophagitis K21.9 [facility] [id number] [place] [address] Apr, Type 2 diabetes mellitus with other diabetic kidney complication E11.29 [facility] [id number] [place] [address] Apr, Type 2 diabetes mellitus with other diabetic kidney complication E11.29 and terminal worker current use 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 [facility] [address] [address] 27 Mar, 2017 Encounter for immunization Z23 and Preoperative examination Z01.818 [facility] [id number] [place] [address] Mar, [facility] [id number] [place] [address] Mar, Type 2 diabetes mellitus with other diabetic kidney complication E11.29 [facility] [id number] [place] [address] 08 Mar, 2017 Type 2 diabetes mellitus with other diabetic kidney complication E11.29 [facility] [id number] [place] [address] Mar, Gastroesophageal reflux disease without esophagitis K21.9 [facility] [id number] [place] [address] Mar, Essential hypertension I10 [facility] [id number] [place] [address] Feb, terminal worker 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 [facility] [id number] [place] [address] Feb, Type 2 diabetes mellitus with other diabetic kidney complication E11.29 [facility] [id number] [place] [address] Feb, Type 2 diabetes mellitus with other diabetic kidney complication E11.29 [facility] [id number] [place] [address] Feb, Type 2 diabetes mellitus with other diabetic kidney complication E11.29 [facility] [id number] [place] [address] Feb, Gastroesophageal reflux disease without esophagitis K21.9 [facility] [id number] [place] [address] 03 Aug, 2017 Type 2 diabetes mellitus with other diabetic kidney complication E11.29 [facility] [address] [address] Feb, retirement current use of anticoagulant Z79.01 [facility] [address] [address] Jan, Type 2 diabetes mellitus with other diabetic kidney complication E11.29 [facility] [id number] [place] [address] Jan, Type 2 diabetes mellitus with other diabetic kidney complication E11.29 [facility] [address] [address] Jan, Chronic pain syndrome G89.4 [facility] [id number] [address] Jan, [facility] [id number] [place] [address] Jan, [facility] [address] [address] Jan, [facility] [id number] [place] [address] Jan, [facility] [address] [address] Jan, Primary insomnia F51.01 ; Type 2 diabetes mellitus with other diabetic kidney complication E11.29 ; Chronic pain syndrome G89.4 and Essential hypertension I10 [facility] [address] [address] Jan, Primary insomnia F51.01 [facility] [id number] [place] [address] Jan, Type 2 diabetes mellitus with other diabetic kidney complication E11.29 [facility] [address] [address] Jan, [facility] [address] [place] [address] Jan, 2017 Chronic obstructive pulmonary disease, unspecified COPD type J44.9 [facility] [id number] [place] [address] Jan, Essential hypertension I10 ; Type 2 diabetes mellitus with other diabetic kidney complication E11.29 ; Chronic obstructive pulmonary disease, unspecified COPD type J44.9 ; Chronic kidney disease, stage 4 (severe) N18.4 ; Right carpal tunnel syndrome G56.01 ; 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 ; terminal worker (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 and Diabetic polyneuropathy associated with type 2 diabetes mellitus E11.42 [facility] [id number] [place] [address] Jan, Gastroesophageal reflux disease without esophagitis K21.9 [facility] [id number] [place] [address] Dec, [facility] [id number] [place] [address] Dec, [facility] [id number] [place] [address] Dec, terminal worker current use 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 ; Chronic pain syndrome G89.4 and Essential hypertension I10 [facility] [id number] [address] Dec, [facility] [id number] [place] [address] Dec, Type 2 diabetes mellitus with other diabetic kidney complication E11.29 [facility] [id number] [address] Dec, [facility] [id number] [place] [address] Dec, Gastroesophageal reflux disease without esophagitis K21.9 [facility] [id number] [place] [address] 24 May, 2017 Type 2 diabetes mellitus with other diabetic kidney complication E11.29 [facility] [address] [address] November, [facility] [address] [place] [address] November, Type 2 diabetes mellitus with other diabetic kidney complication E11.29 [facility] [address] [place] [address] November, [facility] [address] [place] [address] November, Type 2 diabetes mellitus with other diabetic kidney complication E11.29 [facility] [id number] [place] [address] November, [facility] [id number] [place] [address] Oct, Essential hypertension I10 [facility] [id number] [place] [address] Oct, Psoriasis of scalp L40.9 [facility] [id number] [place] [address] Oct, Essential hypertension I10 and Chronic pain syndrome G89.4 [facility] [address] [place] [address] Oct, [facility] [address] [place] [address] Sep, Type 2 diabetes mellitus with other diabetic kidney complication E11.29 [facility] [address] [address] Sep, [facility] [id number] [place] [address] Sep, Type 2 diabetes mellitus with other diabetic kidney complication E11.29 [facility] [address] [address] Sep, Type 2 diabetes mellitus with other diabetic kidney complication E11.29 [facility] [id number] [place] [address] 09 Sep, 2017 Type 2 diabetes mellitus [...] and Psoriasis of scalp L40.9 [facility] [id number] [place] [address] Sep, [address] [address] Aug, Essential hypertension I10 [place] [facility] [address] [address] Aug, History of DVT (deep vein thrombosis) Z86.718 [facility] [id number] [place] [address] Aug, [facility] [id number] [place] [address] Jul, [facility] [id number] [place] [address] Jul, [facility] [id number] [place] [address] Jul, terminal worker 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 ; Chronic pain syndrome G89.4 and Chronic kidney disease, stage 4 (severe) N18.4 [facility] [id number] [place] [address] Jul, [facility] [facility] [address] [address] Jul, [facility] [address] [address] Jul, [facility] [address] [place] [address] Jul, [facility] [address] [address] Jul, [facility] [id number] [place] [address] Jul, Type 2 diabetes mellitus with other diabetic kidney complication E11.29 [facility] [id number] [place] [address] Jul, History of DVT (deep vein thrombosis) Z86.718 [facility] [address] [place] [address] Jun, [facility] [id number] [place] [address] Jun, History of DVT (deep vein thrombosis) Z86.718 [place] [id number] [place] [address] 15 Jun, 2016 Post traumatic stress disorder (PTSD) F43.10 [address] [address] 07 Jun, 2016 Type 2 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 ; Diabetic polyneuropathy associated with type 2 diabetes mellitus E11.42 ; Iron deficiency anemia due to chronic blood loss D50.0 ; Chronic obstructive pulmonary disease, unspecified COPD type J44.9 ; 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 worker 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 ; History [...] wrist pain M25.531 [facility] [id number] [place] [address] May, [facility] [id number] [place] [address] May, [facility] [address] [address] May, [facility] [id number] [place] [address] May, [facility] [id number] [place] [address] May, Anemia in other chronic diseases classified elsewhere D63.8 [facility] [address] [address] May, [facility] [id number] [place] [address] Apr, [facility] [id number] [place] [address] 27 Mar, 2016 Dermatofibroma D23.9 [facility] [id number] [place] [address] 20 Mar, 2016 [facility] [id number] [place] [address] 14 Mar, 2016 Chronic pain syndrome G89.4 [facility] [id number] [place] [address] 09 Mar, 2016 [facility] [id number] [place] [address] 07 Mar, 2016 [facility] [id number] [place] [address] 06 Mar, 2016 [facility] [address] [place] [address] Feb, [facility] [address] [address] Feb, [facility] [address] [address] Feb, [facility] [address] [place] [address] Feb, [facility] [id number] [place] [address] Feb, [facility] [id number] [place] [address] Feb, [facility] [id number] [place] [address] Feb, Type 2 diabetes mellitus with other [...] 4 (severe) N18.4 [facility] [address] [address] Feb, Skin tags, multiple acquired L91.8 [facility] [id number] [place] [address] Jan, [facility] [address] [place] [id number] Jan, Dental examination Z01.20 [facility] [id number] [place] [address] Jan, [facility] [address] [place] [address] Jan, Type 2 diabetes mellitus with other diabetic kidney complication E11.29 ; Diabetic polyneuropathy associated with type 2 diabetes mellitus E11.42 ; Iron deficiency anemia due to chronic blood loss D50.0 ; Chronic obstructive pulmonary disease, unspecified COPD type J44.9 ; terminal worker 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 of 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 ; History of DVT (deep vein thrombosis) Z86.718 ; Chronic pain syndrome G89.4 ; Oxygen desaturation during sleep G47.34 ; Sleep apnea in adult G47.33 ; Gastroesophageal reflux disease without esophagitis K21.9 ; Essential hypertension I10 ; Primary insomnia F51.01 ; Depression, unspecified depression type F32.9 ; Skin lesion L98.9 and Renal failure, chronic, stage 4 (severe) N18.4 [place] [id number] [place] [address] Dec, Diabetes type 2, uncontrolled E11.65 [facility] [id number] [place] [address] Dec, [place] [id number] [place] [address] Dec, Type 2 diabetes mellitus with other diabetic kidney complication E11.29 ; Diabetic polyneuropathy associated with type 2 diabetes mellitus E11.42 ; Iron deficiency anemia due to chronic blood loss D50.0 ; Chronic obstructive pulmonary disease, unspecified COPD type J44.9 ; 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 worker 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 of 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 ; History of DVT (deep vein thrombosis) Z86.718 ; Chronic pain syndrome G89.4 ; Oxygen desaturation during sleep G47.34 ; Sleep apnea in adult G47.33 ; Gastroesophageal reflux disease without esophagitis K21.9 ; Essential hypertension I10 ; Primary insomnia F51.01 and Depression, unspecified depression type F32.9 [facility] [address] [id number] [id number] Dec, Dental caries K02.9 [facility] [id number] [place] [id number] Dec, [facility] [address] [id number] [place] [id number] Dec, Dental examination Z01.20 [facility] [address] [id number] [id number] November, Dental examination Z01.20 and Dental caries K02.9 [facility] [address] [id number] [id number] Oct, [facility] [address] [id number] [place] [address] [id number] Oct, [facility] [address] [id number] [place] [address] [id number] Sep, [facility] [address] [id number] [place] [address] [id number] Sep, [facility] [address] [id number] [place] [address] [id number] Sep, [facility] [address] [id number] [place] [address] [id number] Sep, Other chronic pain 338.29 [facility] [address] [id number] [place] [address] [id number] Aug, Diabetes type 2, uncontrolled E11.65 and Morbid obesity due to excess calories E66.01 [facility] [address] [id number] [place] [address] [id number] Aug, Hair loss L65.9 [facility] [address] [id number][place] [id number] Aug, [facility] [address] [id number] [place] [address] [id number] Jul, [facility] [address] [id number][place] [id number] Jul, [facility] [address] [id number] [place] [address] [id number] Jun, [facility] [address] [id number] [place] [address] [id number] Jun, Hair loss L65.9 and Disorder of the skin and subcutaneous tissue, unspecified L98.9 [facility] [id number] [place] [address] [id number] May, Type 2 diabetes mellitus with other diabetic kidney complication E11.29 ; Type 2 diabetes mellitus with hyperglycemia E11.65 ; Morbid obesity due to excess calories E66.01 and Essential hypertension I10 [facility] [id number] [place] [address] [id number] May, Diabetes type 2, uncontrolled E11.65 ; Encounter for immunization Z23 and Morbid obesity due to excess calories E66.01 [facility] [id number] [place] [address] [id number] May, [facility] [address] [address] Apr, [address] [id number] Apr, Hyperglycemia R73.[address] [id number] Apr, [address] [id number] Apr, Depression F32.9 ; Encounter for immunization Z23 ; Hyperglycemia R73.9 and Anemia in other chronic diseases classified elsewhere D63.8 [facility] [id number] [place] [address] [id number] Mar, [id number] [place] [address] [id number] Feb, Positive occult stool blood test 792.1 [id number] [place] [address] [id number] Feb, Depression 311 ; Other chronic pain 338.29 and Diabetes with renal manifestations, type II or unspecified type, not stated as uncontrolled 250.40 [facility] [id number] [place] [address] Feb, Occult blood in stools 792.1 [id number] [place] [address] [id number] Feb, Anemia 285.9 ; Occult blood positive stool 792.1 ; Unspecified essential hypertension 401.9 and Other chronic pain 338.29 [facility] [id number][place] [id number] Feb, [facility] [id number] [place] [address] [id number] Feb, Anemia 285.9 [facility] [id number] [place] [address] [id number] Feb, [facility] [id number] [place] [address] [id number] Feb, [facility] [id number] [place] [address] [id number] Feb, Diabetes with renal manifestations, type II or unspecified type, not stated as uncontrolled 250.40 ; Other chronic pain 338.29 ; Unspecified essential hypertension 401.9 ; Anemia 285.9 and Depression 311 [facility] [id number] [place] [address] [id number] Jan, [facility] [id number] [place] [address] [id number] Jan, Anemia 285.9 and Follow up V67.9 [facility] [id number] [place] [address] [id number] Jan, [facility] [id number] [place] [address] [id number] Jan, [facility] [id number] [place] [address] [id number] Jan, [facility] [id number] [place] [address] [id number] Dec, [facility] [id number] [place] [id number] Oct, [facility] [id number] [place] [address] Oct, [facility] [id number] [place] [address] Sep, [facility] [address] [id number][place] [id number] Sep, [facility] [id number] [place] [address] Sep, [facility] [place] [address] [id number] [place] [id number] Aug, [facility] [place] [facility] [address] [facility] [id number] [address] Aug, [facility] [place] [facility] [address] [facility] [id number] [place] [address] Aug, [facility] [place] [address] [id number], [place] [id number] Aug, [facility] [place] [facility] [address] [facility] [id number] [place] [address] Aug, [facility] [place] [facility] [address] [facility] [id number] [place] [address] Aug, [facility] [place] [address] [facility] [id number][place] [id number] Aug, [facility] [place] [facility] [address]00565100[place] [address] Aug, [facility] [place] [address] [facility] [id number], [place] [id number] Jul, [facility] [place] [facility] [address]00565100[place] [address] Jul, [facility] [place] [facility] [address] [facility] [id number] [address] Jul, [facility] [place] [address] [facility] [id number], [place] [id number] Jul, [facility] [place] [facility] [address] [facility] [id number] [place] [address] Jul, [facility] [place] [address] [facility] [id number][place] [id number] Jul, [facility] [place] [facility] [address] [facility] [id number] [address] Jul, [facility] [place] [address] [id number], [place] [id number] Jun, [facility] [place] [address] [facility] [id number], [place] [id number] Jun, [facility] [place] [facility] [address] [facility] [id number] [address] Jun, [facility] [place] [facility] [address] [facility] [id number] [place] [address] Jun, [facility] [place] [address] [facility] [id number], [place] [id number] Jun, [facility] [place] [facility] [address] [facility] [id number] [address] Jun, [facility] [place] [address] [facility] [id number], [place] [id number] May, [facility] [place] [facility] [address] [facility] [id number] [place] [address] May, [facility] [place] [facility] [address]00565100[place] [address] May, [facility] [place] [address] [facility] [id number], [place] [id number] Apr, [facility] [place] [facility] [address] [facility] [id number] [place] [address] Apr, [facility] [place] [address] [facility] [id number][place] [id number] Apr, [facility] [place] [address] [facility] [id number], [place] [id number] Apr, [facility] [place] [facility] [address] [facility] [id number] [place] [address] Apr, [facility] [place] [facility] [address] [facility] [id number] [address] Apr, [facility] [place] [address] [facility] [id number], [place] [id number] Mar, [facility] [place] [facility] [address] [facility] [id number] [place] [address] Mar, [facility] [place] [address] [facility] [id number], [place] [id number] Mar, [facility] [place] [facility] [address] [id number] [address] Mar, [facility] [place] [address] [id number] [place] [id number] Mar, [facility] [place] [facility] [address] [facility] [id number] [place] [address] Mar, [facility] [place] [address] [id number] [place] [id number] Mar, [facility] [place] [facility] [address] [facility] [id number] [place] [address] Mar, [facility] [place] [address] [id number] [place] [id number] Mar, [facility] [place] [facility] [address] [facility] [id number] [address] Mar, [facility] [place] [address] [facility] [id number][place] [id number] Feb, [facility] [place] [facility] [address] [facility] [id number] [place] [address] Feb, [facility] [place] [address] [facility] [id number], [place] 135292473 Jan, [facility] [place] [facility] [address] [facility] [id number] [address] Jan, [facility] [place] [address] [facility] [id number], [place] [id number] Jan, [facility] [place] [facility] [address] [facility] [id number] [place] [address] Jan, [facility] [place] [address] [facility] [id number], [place] 060665074 Jan, [facility] [place] [facility] [address] [facility] [id number] [place] [address] Jan, [facility] [place] [facility] [address] [facility] [id number] [address] Dec, [facility] [place] [facility] [address] [facility] [id number] [place] [address] Dec, [facility] [place] [address] [id number] [place] [id number] November, [facility] [place] [facility] [address] [id number] [place] [address] November, [facility] [place] [address] [id number] [place] [id number] November, [facility] [place] [facility] [address] [id number] [place] [address] November, [facility] [place] [address] [id number] [place] [id number] Oct, [facility] [place] [facility] [address] [id number] [place] [address] Oct, [facility] [place] [facility] [address] [facility] [id number] [place] [address] Oct, [facility] [place] [facility] [address] [facility] [id number] [place] [address] Oct, [facility] [place] [facility] [address] [facility] [id number] [place] [address] Oct, [facility] [place] [facility] [address] [facility] [id number] [place] [address] Oct, [facility] [place] [address] [id number], [place] [id number] Sep, [facility] [place] [address] [id number], [place] [id number] Sep, [facility] [place] [facility] [address] [id number] [address] Sep, [facility] [place] [facility] [address] [id number] [place] [address] Sep, [facility] [place] [address] [id number] [place] [id number] Sep, [facility] [place] [facility] [address] [facility] [id number] [place] [address] Sep, [facility] [place] [facility] [address] [id number] [address] Aug, [facility] [place] [facility] [address] [facility] [id number] [place] [address] Aug, [facility] [place] [address] [facility] [id number], [place] [id number] Aug, [facility] [place] [address] [facility] [id number] [place] [id number] Aug, [facility] [place] [facility] [address] [facility] [id number] [address] Aug, [facility] [place] [address] [facility] [id number] [place] [id number] Aug, [facility] [place] [facility] [id number] [address] Aug, [facility] [place] [id number], [place] [id number] Aug, [facility] [place] [facility] [address]00565100[place] [address] Aug, [facility] [place] [address] [id number][place] [id number] Aug, [facility] [place] [facility] [address]00565100[place] [address] Aug, [facility] [place] [address] [id number], [place] [id number] Aug, [facility] [place] [facility] [address]00565100[place] [address] Aug, [facility] [place] [facility] [address] [id number] [address] Jul, [facility] [place] [address] [facility] [id number], [place] 095871403 Jun, [facility] [place] [facility] [address] [id number] [address] Jun, [facility] [place] [facility] [address]00565100[place] [address] Jun, [facility] [place] [facility] [address] [id number] [place] [address] Jun, [facility] [place] [address] [id number], [place] 032352871 Jun, [facility] [place] [facility] [address] [facility] [id number] [place] [address] Jun, [facility] [place] [facility] [address] [id number] [place] [address] Jun, [facility] [place] [address] [facility] [id number] [place] [id number] Jun, [facility] [place] [facility] [address] [id number] [address] Jun, [facility] [place] [facility] [address] [facility] [id number] [place] [address] May, [facility] [place] [address] [id number], [place] [id number] May, [facility] [place] [facility] [address] [facility] [id number] [address] May, [facility] [place] [facility] [address] [facility] [id number] [place] [address] May, [facility] [place] [facility] [address] [facility] [id number] [place] [address] May, [facility] [place] [facility] [address] [facility] [id number] [place] [address] May, [facility] [place] [address] [facility] [id number], [place] 930973591 May, [facility] [place] [facility] [address] [facility] [id number] [place] [address] May, [facility] [place] [address] [facility] [id number], [place] [id number] May, [facility] [place] [facility] [address] [facility] [id number] [place] [address] May, [facility] [place] [address] [facility] [id number], [place] [id number] Apr, [facility] [place] [facility] [address] [facility] [id number] [address] Apr, [facility] [place] [facility] [address] [facility] [id number] [place] [address] Apr, [facility] [address] [facility] [id number], [place] [id number] Apr, [facility] [place] [facility] [address] [facility] [id number] [address] Apr, [facility] [place] [facility] [address] [facility] [id number] [place] [address] Apr, [facility] [place] [id number], [place] [id number] Apr, [facility] [place] [facility] [address]00565100[place] [address] Apr, [facility] [place] [facility] [address]00565100[place] [address] Apr, [facility] [place] [facility] [address]00565100[place] [address] Apr, [facility] [place] [address]00565100[place] 788504755 Apr, [facility] [place] [facility] [address] [facility] [id number] [place] [address] Apr, [facility] [address] [facility] [id number], [place] 181383956 Apr, [facility] [place] [facility] [address] [facility] [id number] [address] Apr, [facility] [address] [facility] [id number], [place] [id number] Apr, [facility] [place] [facility] [address] [facility] [id number] [address] Apr, [facility] [place] [facility] [address] [facility] [id number] [place] [address] Apr, [facility] [address] [facility] [id number] [place] [address] Apr, [facility] [place] [address] [id number] [place] 914363877 Apr, [facility] [address] [facility] [id number] [place] [address] Mar, [facility] [address] [facility] [id number] [address] Mar, [facility] [place] [address] [id number] [place] [id number] Mar, [facility] [place] [address] [id number] [place] [id number] Mar, [facility] [place] [address] [id number] [place] 100217416 Mar, [facility] [place] [address] [id number] [place] 998457636 Feb, [facility] [place] [address] [id number] [place] 724736859 Feb, [facility] [place] [address] [id number] [place] 227771244 Feb, [facility] [address] [facility] [id number] [address] Feb, [facility] [place] [address] [id number] [place] [id number] Feb, [facility] [place] [address] [id number] [place] 206574081 Feb, [facility] [place] [address] [id number] [place] [id number] Feb, [facility] [place] [address] [id number] [place] [id number] Feb, [facility] [place] [address] [id number] [place] 108771547 Feb, [facility] [place] [address] [id number] [place] [id number] Jan, [facility] [place] [address] [id number] [place] 9366625[place] Jan, [facility] [place] [address] [id number] [place] [id number] Jan, [facility] [place] [address] [id number] [place] 220418127 Jan, [facility] [place] [address] [id number] [place] 945103643 Jan, [facility] [id number] [place] [address] Jan, [facility] [place] [address] [id number] [place] 997607222 Jan, [facility] [place] [address] [id number] [place] [id number] Jan, [facility] [place] [address] [id number] [place] [id number] Dec, [facility] [place] [address] [id number] [place] [id number] November, [facility] [place] [address] [id number] [place] [id number] November, [facility] [place] [address] [id number] [place] 616115029 November, [facility] [place] [address] [id number] [place] [id number] November, [facility] [place] [address] [id number] [place] 223929415 November, [facility] [address] [id number] [place] [id number] November, [facility] [place] [address] [id number] [place] [id number] Jul, [facility] [place] [address] [id number] [place] [id number] Jul, [facility] [place] [address] [id number] [place] 212439024 Jul, [facility] [place] [address] [id number] [place] [id number] Jun, [facility] [address]00565100[place] [address] Jun, [facility] [place] [address] [id number], [place] [id number] May, [facility] [place] [facility] [address] [facility] [id number] [place] [address] May, [facility] [place] [address] [id number][place] [id number] May, [facility] [place] [facility] [address] [facility] [id number] [place] [address] May, [facility] [place] [address] [id number][place] [id number] May, [facility] [place] [facility] [address] [facility] [id number] [place] [address] May, [facility] [place] [address] [id number][place] [id number] Apr, [facility] [place] [facility] [id number] [address] Apr, [facility] [place] [facility] [address] [facility] [id number] [place] [address] Apr, [facility] [place] [address] [id number][place] [id number] Apr, [facility] [place] [address] [id number][place] [id number] Apr, [facility] [place] [facility] [id number] [address] Apr, [facility] [place] [facility] [address] [facility] [id number] [place] [address] Apr, [facility] [place] [address] [id number], [place] [id number] Apr, [facility] [place] [facility] [address] [facility] [id number] [place] [address] Apr, [facility] [place] [address] [id number][place] [id number] Apr, [facility] [place] [address] [id number] [place] [address] [place] [id number] Apr, [facility] [place] [address] [id number] [place] [id number] Mar, [facility] [place] [address] [id number] [place] [id number] Feb, [facility] [place] [address] [id number] [place] [id number] Jan, [facility] [place] [address] [id number] [place] [id number] Dec, [facility] [place] [address] [id number] [place] [id number] Dec, [facility] [place] [address] [id number] [place] [id number] Dec, [facility] [place] [address] [id number] [place] [id number] Dec, [facility] [place] [address] [id number] [place] [id number] Dec, [facility] [place] [address] [id number] [place] [id number] November, [facility] [place] [address] [id number] [place] [id number] November, [facility] [place] [address] [id number] [place] [id number] November, [facility] [address] [facility] [id number] [place] [address] November, [facility] [place] [address] [id number] [place] [id number] November, [facility] [place] [address] [id number] [place] [id number] November, [facility] [place] [address] [id number] [place] [id number] Oct, [facility] [place] [address] [id number] [place] [id number] Oct, [facility] [place] [address] [id number] [place] [id number] Oct, [facility] [place] [address] [id number] [place] [id number] Oct, [facility] [place] [address] [id number] [place] [id number] Oct, [facility] [place] [address] [id number] [place] [id number] Oct, [facility] [place] [address] [id number] [place] [id number] Sep, [facility] [place] [address] [id number] [place] [id number] Aug, [facility] [place] [address] [id number] [place] [id number] Aug, [facility] [place] [address] [id number] [place] [id number] Jul, [facility] [place] [facility] [address] [facility] [id number] [place] [address] Jun, [facility] [place] [facility] [address] [id number] [address] Jun, [facility] [place] [facility] [id number] [address] Jun, [facility] [place] [facility] [id number] [address] Jun, [facility] [place] [facility] [id number] [address] May, [facility] [place] [facility] [id number] [address] May, [facility] [place] [facility] [id number] [address] Apr, [facility] [place] [facility] [address] [id number] [address] Apr, [facility] [place] [facility] [id number] [address] Apr, [facility] [place] [facility] [id number] [address] Feb, [facility] [place] [facility] [address] [id number] [place] [address] 15 Aug, 2010 [facility] [address] [id number] [place] [address] 18 Jul, 2010 [facility] [place] [facility] [address] [id number] [place] [address] 30 Jun, 2010 [facility] [address] [id number] [place] [address] 29 May, 2010 [facility] [place] [facility] [address] [id number] [place] [address] May, [facility] [address] [id number] [place] [address], [place] [address] May, [facility] [address] [facility] [id number] [place] [address] May, [facility] [address] [facility] [id number] [place] [address] May, [facility] [address] [id number] [place] [address] 16 Aug, 2009 [facility] [address] [facility] [id number] [place] [address] Jun, [facility] [address] [facility] [id number] [place] [address] Jun, [facility] [place] [facility] [address] [facility] [id number] [place] [address] Jun, [facility] [address] [id number] [address] 24 May, 2009 [facility] [place] [facility] [address] [id number] [place] [address] 28 Apr, 2009 [facility] [place] [facility] [address] [facility] [id number] [place] [address] Apr, [facility] [address] [facility] [id number] [place] [address] Apr, [facility] [address] [facility] [id number] [address] Jan, [facility] [address] [facility] [id number] [place] [address] Oct, [facility] [address] [facility] [id number] [place] [address] May, [facility] [address] [facility] [id number] [address] May, IMMUNIZATIONS No Known Immunizations SOCIAL HISTORY Never Assessed REASON FOR VISIT Medication refill request PLAN OF CARE VITAL SIGNS MEDICATIONS Medication Instructions Dosage Frequency Start Date End Date Duration Status Venlafaxine HCl ER 150 MG Orally Once a day 1 tablet with food 24h Jan, 30 day(s) Active RESULTS No Results PROCEDURES [...] Dialysis [facility] 2012 -Dr. Simon now [facility] Medical History Colonoscopy (polyps 2 ) [...]
--- OUTSIDE RECORDS SUMMARY | 2018-12-28 17:55 | XMS REPORT ---
Author Author JETHRO SHETH [facility] Address [address] [place] [address] Care Team Providers Care Microfilm Technician Name Role Phone JETHRO SHETH Unavailable PROBLEMS Type Condition ICD9-CM Code [id number] Code Onset Dates Condition Status SNOMED Code Problem Chronic kidney disease, stage 4 (severe) N18.4 Active 433274405 Problem Psoriasis of scalp L40.9 Active 859808631 Problem Type 2 diabetes mellitus with hyperglycemia E11.65 Active 744180456127835 Problem Fibromyalgia M79.7 Active 518563248 Problem History of DVT (deep vein thrombosis) Z86.718 Active 635624806 Problem Carpal tunnel syndrome, bilateral G56.03 Active 68408286107918998 Problem Type 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 Active 293213492 Problem Anemia in other chronic diseases classified elsewhere D63.8 Active 302242784 Problem 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 910721751 Problem Paresthesia of right upper extremity R20.2 Active 43090831 Problem Bilateral lower extremity edema R60.0 Active 362679019 Problem Supplemental oxygen dependent Z99.81 Active 577838595955 Problem Sleep apnea in adult G47.33 Active 94407869 Problem Chronic pain syndrome G89.4 Active 433389917 Problem 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 Active 484350684 Problem Essential hypertension I10 Active 07953034 Problem Gastroesophageal reflux disease without esophagitis K21.9 Active 064334459 Problem Chronic obstructive pulmonary disease, unspecified COPD type J44.9 Active 89449892 Problem 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 Active 228475766264899 Problem Primary insomnia F51.01 Active 4581513 Problem Oxygen desaturation during sleep G47.34 Active 501717700 Problem Right carpal tunnel syndrome G56.01 Active 821158798660959 Problem Diabetic polyneuropathy associated with type 2 diabetes mellitus E11.42 Active 00092155 Problem Depression, unspecified depression type F32.9 Active 25475437 ALLERGIES No Information ENCOUNTERS Encounter Location Date Diagnosis [facility] [address], [place] [address] Feb, [facility] [address], [place] [address] Feb, [facility] [address], [place] [address] Jan, [facility] [address], [place] [address] Jan, [facility] [address] [place] [address] Jan, [address] [id number] Jan, [facility] [address], [place] [address] Jan, [facility] [address], [place] [address] Jan, [facility] [address] [place] [address] Jan, Essential hypertension I10 [facility] [address], [place] [address] Jan, Chronic obstructive pulmonary disease, unspecified COPD type J44.9 [facility] [address], [place] [address] Jan, [facility] [address], [place] [address] Jan, [facility] [address], [place] [address] Jan, Type 2 diabetes mellitus with other diabetic kidney complication E11.29 ; Anemia in other chronic diseases classified elsewhere D63.8 ; Chronic obstructive pulmonary disease, unspecified COPD type J44.9 and BMI 60.0-69.9, adult Z68.44 [facility] [address], [place] [address] Jan, [facility] [id number] [place] [address] Jan, [facility] [id number] [id number] Jan, [facility] [address] [id number] [id number] Dec, [facility] [id number] [address] Dec, [facility] [id number] [address] Dec, Essential hypertension I10 ; Type 2 diabetes mellitus with other diabetic kidney complication E11.29 ; Depression, unspecified depression type F32.9 ; Supplemental oxygen dependent Z99.81 ; Chronic pain syndrome G89.4 ; Fibromyalgia M79.7 ; Carpal tunnel syndrome, bilateral G56.03 and Chronic kidney disease, stage 4 (severe) N18.4 [facility] [address], [place] [address] Dec, Essential hypertension I10 [facility] [address] [address] November, Type 2 diabetes mellitus with other diabetic kidney complication E11.29 [facility] [address], [place] [address] November, Chronic pain syndrome G89.4 [facility] [address], [place] [address] November, [facility] [address] [address] November, [facility] [address], [place] [address] November, [facility] [address], [place] [address] Oct, Type 2 diabetes mellitus with other diabetic kidney complication E11.29 [place] [address], [place] [address] Oct, Primary insomnia F51.01 [place] [facility] [id number] [address] Oct, Bilateral lower extremity edema R60.0 [facility] [facility] [address] [place] [address] Oct, [facility] [id number] [place] [address] Sep, Type 2 diabetes mellitus with other diabetic kidney complication E11.29 and Chronic obstructive pulmonary disease, unspecified COPD type J44.9 [facility] [id number] [place] [address] 15 Aug, 2017 Type 2 diabetes mellitus with other diabetic kidney complication E11.29 [facility] [id number] [place] [address] 12 Aug, 2017 Gastroesophageal reflux disease without esophagitis K21.9 ; 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 ; Chronic pain syndrome G89.4 ; Essential hypertension I10 and Type 2 diabetes mellitus with other diabetic kidney complication E11.29 [facility] [facility] [address] [place] [address] 08 Aug, 2017 Chronic pain syndrome G89.4 [facility] [facility] [address], [place] [address] Aug, Type 2 diabetes mellitus with other diabetic kidney complication E11.29 [facility] [facility] [address] [place] [address] Jul, Diabetic polyneuropathy associated with type 2 diabetes mellitus E11.42 [facility] [address] [place] [address] Jul, Primary insomnia F51.01 [facility] [address], [place] [address] Jul, [facility] [address], [place] [address] 14 Jul, 2017 Type 2 diabetes mellitus with other diabetic kidney complication E11.29 and Chronic obstructive pulmonary disease, unspecified COPD type J44.9 [facility] [address], [place] [address] 08 Jul, 2017 Type 2 diabetes mellitus with other diabetic kidney complication E11.29 [facility] [id number] [place] [address] Jun, Type 2 diabetes mellitus with other diabetic kidney complication E11.29 [facility] [address] [address] 27 Jun, 2017 [place] [facility] [address] [place] [address] Jun, Chronic obstructive pulmonary disease, unspecified COPD type J44.9 [place] [id number] [place] [address] May, Type 2 diabetes mellitus with other diabetic kidney complication E11.29 [facility] [facility] [address], [place] [address] May, intermediate current use of anticoagulant Z79.01 and Essential hypertension I10 [address] [place] [address] May, Anemia in other chronic diseases classified elsewhere D63.8 ; Chronic obstructive pulmonary disease, unspecified COPD type J44.9 ; Oxygen desaturation during sleep G47.34 ; Sleep apnea in adult G47.33 and Supplemental oxygen dependent Z99.81 [address], [place] [address] May, Type 2 diabetes mellitus with other diabetic kidney complication E11.29 ; Essential hypertension I10 ; Chronic pain syndrome G89.4 ; BMI 40.0- 44.9, adult Z68.41 ; Gastroesophageal reflux disease without esophagitis K21.9 ; intermediate current use of anticoagulant Z79.01 ; 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 ; Diabetic polyneuropathy associated with type 2 diabetes mellitus E11.42 ; Edema of both legs R60.0 and Supplemental oxygen dependent Z99.81 [facility] [facility] [id number] [place] [address] 08 May, 2017 [place] [facility] [address] [place] [address] May, Essential hypertension I10 and Gastroesophageal reflux disease without esophagitis K21.9 [facility] [address] [place] [address] May, [facility] [address] [place] [address] May, Type 2 diabetes mellitus with other diabetic kidney complication E11.29 and intermediate current use of anticoagulant Z79.01 [facility] [address] [place] [address] Apr, Chronic pain syndrome G89.4 and Essential hypertension I10 [facility] [address] [place] [address] Apr, Type 2 diabetes mellitus with other diabetic kidney complication E11.29 [facility] [address] [place] [address] Apr, Type 2 diabetes mellitus with other diabetic kidney complication E11.29 [facility] [address] [place] [address] Apr, Essential hypertension I10 [facility] [facility] [address] [place] [address] Apr, Gastroesophageal reflux disease without esophagitis K21.9 [facility] [address] [place] [address] Apr, Type 2 diabetes mellitus with other diabetic kidney complication E11.29 [facility] [address] [place] [address] Apr, Type 2 diabetes mellitus with other diabetic kidney complication E11.29 and intermediate current use of anticoagulant Z79.01 [facility] [address], [place] [address] 27 Mar, 2017 Encounter for immunization Z23 and Preoperative examination Z01.818 [facility] [id number] [place] [address] Mar, [facility] [address] [place] [address] 12 Mar, 2017 Type 2 diabetes mellitus with other diabetic kidney complication E11.29 [facility] [id number] [place] [address] 08 Mar, 2017 Type 2 diabetes mellitus with other diabetic kidney complication E11.29 [facility] [facility] [address] [place] [address] 06 Mar, 2017 Gastroesophageal reflux disease without esophagitis K21.9 [facility] [address] [place] [address] Mar, Essential hypertension I10 [facility] [address] [place] [address] Feb, intermediate current use of anticoagulant Z79.01 [facility] [address] [place] [address] Feb, Type 2 diabetes mellitus with other diabetic kidney complication E11.29 [facility] [address] [place] [address] Feb, Type 2 diabetes mellitus with other diabetic kidney complication E11.29 [facility] [id number] [place] [address] Feb, Type 2 diabetes mellitus with other diabetic kidney complication E11.29 [facility] [id number] [place] [address] Feb, Gastroesophageal reflux disease without esophagitis K21.9 [facility] [address] [place] [address] Feb, Type 2 diabetes mellitus with other diabetic kidney complication E11.29 [facility] [address], [place] [address] Feb, 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 [facility] [id number] [place] [address] Jan, Type 2 diabetes mellitus with other diabetic kidney complication E11.29 [facility] [id number] [place] [address] Jan, Type 2 diabetes mellitus with other diabetic kidney complication E11.29 [facility] [address] [place] [address] Jan, Chronic pain syndrome G89.4 [facility] [id number] [place] [address] Jan, [facility] [id number] [place] [address] Jan, [facility] [id number] [place] [address] Jan, [facility] [address] [place] [address] Jan, [facility] [address] [place] [address] Jan, Primary insomnia F51.01 ; Type 2 diabetes mellitus with other diabetic kidney complication E11.29 ; Chronic pain syndrome G89.4 and Essential hypertension I10 [facility] [address], [place] [address] Jan, Primary insomnia F51.01 [facility] [address] [place] [address] Jan, Type 2 diabetes mellitus with other diabetic kidney complication E11.29 [facility] [address], [place] [address] Jan, [facility] [id number] [place] [address] Jan, Chronic obstructive pulmonary disease, unspecified COPD type J44.9 [facility] [address] [place] [address] Jan, Essential hypertension I10 ; Type 2 diabetes mellitus with other diabetic kidney complication E11.29 ; Chronic obstructive pulmonary disease, unspecified COPD type J44.9 ; Chronic kidney disease, stage 4 (severe) N18.4 ; Right carpal tunnel syndrome G56.01 ; 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 ; intermediate (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 and Diabetic polyneuropathy associated with type 2 diabetes mellitus E11.42 [place] [address] [place] [address] Jan, Gastroesophageal reflux disease without esophagitis K21.9 [facility] [address] [place] [address] Dec, [facility] [id number] [place] [address] Dec, [facility] [address] [place] [address] Dec, 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 ; Chronic pain syndrome G89.4 and Essential hypertension I10 [facility] [id number] [place] [address] Dec, [facility] [address] [place] [address] Dec, Type 2 diabetes mellitus with other diabetic kidney complication E11.29 [facility] [address], [place] [address] Dec, [facility] [address] [place] [address] Dec, Gastroesophageal reflux disease without esophagitis K21.9 [facility] [address] [place] [address] November, Type 2 diabetes mellitus with other diabetic kidney complication E11.29 [facility] [address], [place] [address] November, [facility] [address], [place] [address] November, Type 2 diabetes mellitus with other diabetic kidney complication E11.29 [facility] [address], [place] [address] November, [facility] [address], [place] [address] November, Type 2 diabetes mellitus with other diabetic kidney complication E11.29 [facility] [address] [place] [address] November, [facility] [address] [place] [address] Oct, Essential hypertension I10 [facility] [id number] [place] [address] Oct, Psoriasis of scalp L40.9 [facility] [address], [place] [address] Oct, Essential hypertension I10 and Chronic pain syndrome G89.4 [facility] [address], [place] [address] Oct, [facility] [address], [place] [address] Sep, Type 2 diabetes mellitus with other diabetic kidney complication E11.29 [facility] [address], [place] [address] Sep, [facility] [address], [place] [address] Sep, Type 2 diabetes mellitus with other diabetic kidney complication E11.29 [facility] [address], [place] [address] Sep, Type 2 diabetes mellitus with other diabetic kidney complication E11.29 [facility] [address] [place] [address] Sep, 2017 Type 2 diabetes mellitus with other diabetic kidney complication E11.29 ; Chronic kidney disease, stage 4 (severe) N18.4 ; Chronic obstructive pulmonary disease, unspecified COPD type J44.9 ; Iron deficiency anemia due to chronic blood loss D50.0 ; 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 ; Gastroesophageal reflux disease without esophagitis K21.9 ; Essential hypertension I10 ; Primary insomnia F51.01 ; Depression, unspecified depression type F32.9 ; Chronic pain syndrome G89.4 ; Wrist pain, right M25.531 ; Paresthesia of right upper extremity R20.2 and Psoriasis of scalp L40.9 [place] [address] [place] [address] Sep, [address] [address] Aug, Essential hypertension I10 [place] [address] [address] Aug, History of DVT (deep vein thrombosis) Z86.718 [place] [address] [address] Aug, [place] [id number] [place] [address] Jul, [facility] [address] [place] [address] Jul, [facility] [facility] [address] [place] [address] Jul, intermediate current use of anticoagulant Z79.01 ; Chronic pain syndrome G89.4 and Chronic kidney disease, stage 4 (severe) N18.4 [facility] [facility] [address] [place] [address] Jul, [place] [address] [address] Jul, [place] [address], [place] [address] Jul, [place] [facility] [id number] [place] [address] Jul, [place] [address] [place] [address] Jul, [place] [id number] [place] [address] Jul, Type 2 diabetes mellitus with other diabetic kidney complication E11.29 [facility] [id number] [place] [address] Jul, History of DVT (deep vein thrombosis) Z86.718 [facility] [address] [place] [address] 23 Jun, 2016 [place] [address] [place] [address] Jun, History of DVT (deep vein thrombosis) Z86.718 [place] [address] [place] [address] 15 Jun, 2016 Post traumatic stress disorder (PTSD) F43.10 [place] [address], [place] [address] 07 Jun, 2016 Type 2 diabetes mellitus with other diabetic kidney complication E11.29 ; Diabetic polyneuropathy associated with type 2 diabetes mellitus E11.42 ; Iron deficiency anemia due to chronic blood loss D50.0 ; Chronic obstructive pulmonary disease, unspecified COPD type J44.9 ; 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 ; [...] M79.641 and Right wrist pain M25.531 [facility] [id number] [place] [address] May, [facility] [id number] [place] [address] May, [facility] [id number] [place] [address] May, [facility] [id number] [place] [address] May, [facility] [address] [place] [address] May, Anemia in other chronic diseases classified elsewhere D63.8 [facility] [id number] [place] [address] May, [facility] [id number] [place] [address] Apr, [facility] [id number] [place] [address] 27 Mar, 2016 Dermatofibroma D23.9 [facility] [id number] [place] [address] 20 Mar, 2016 [facility] [id number] [place] [address] 14 Mar, 2016 Chronic pain syndrome G89.4 [facility] [id number] [place] [address] 09 Mar, 2016 [facility] [id number] [place] [address] 07 Mar, 2016 [facility] [id number] [place] [address] 06 Mar, 2016 [facility] [id number] [place] [address] Feb, [facility] [address], [place] [address] Feb, [facility] [address] [place] [address] Feb, [facility] [address] [place] [address] Feb, [facility] [id number] [place] [address] Feb, [facility] [address] [place] [address] Feb, [facility] [id number] [place] [address] Feb, Type 2 diabetes mellitus with other diabetic kidney complication E11.29 ; Diabetic polyneuropathy associated with type 2 diabetes mellitus E11.42 ; Iron deficiency anemia due to chronic blood loss D50.0 ; Chronic obstructive pulmonary disease, unspecified COPD type J44.9 ; 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 ; History of DVT (deep vein thrombosis) Z86.718 ; Chronic pain syndrome G89.4 ; Oxygen desaturation during sleep G47.34 ; Sleep apnea in adult G47.33 ; Gastroesophageal reflux disease without esophagitis K21.9 ; Essential hypertension I10 ; Primary insomnia F51.01 ; Depression, unspecified depression type F32.9 and Renal failure, chronic, stage 4 (severe) N18.4 [facility] [id number] [place] [id number] Feb, Skin tags, multiple acquired L91.8 [facility] [id number] [place] [id number] Jan, [facility] [id number] [place] [id number] Jan, Dental examination Z01.20 [facility] [id number] [place] [address] Jan, [id number] [place] [address] Jan, Type 2 diabetes mellitus with other diabetic kidney complication E11.29 ; Diabetic polyneuropathy associated with type 2 diabetes mellitus E11.42 ; Iron deficiency anemia due to chronic blood loss D50.0 ; Chronic obstructive pulmonary disease, unspecified COPD type J44.9 ; intermediate current use of anticoagulant Z79.01 ; [...] Renal failure, chronic, stage 4 (severe) N18.4 [id number] [place] [address] Dec, Diabetes type 2, uncontrolled E11.65 [id number] [place] [address] Dec, [id number] [place] [address] Dec, Type 2 diabetes mellitus with other diabetic kidney complication E11.29 ; Diabetic polyneuropathy associated with type 2 diabetes mellitus E11.42 ; Iron deficiency anemia due to chronic blood loss D50.0 ; Chronic obstructive pulmonary disease, unspecified COPD type J44.9 ; intermediate current use of anticoagulant Z79.01 ; History of DVT (deep vein thrombosis) Z86.718 ; Chronic pain syndrome G89.4 ; Oxygen desaturation during sleep G47.34 ; Sleep apnea in adult G47.33 ; Gastroesophageal reflux disease without esophagitis K21.9 ; Essential hypertension I10 ; Primary insomnia F51.01 and Depression, unspecified depression type F32.9 [facility] [id number] [place] [address] [id number] Dec, Dental caries K02.9 [facility] [id number] [place] [address] [id number] Dec, [facility] [address] [id number][place] [id number] Dec, Dental examination Z01.20 [facility] [address] [id number][place] [id number] November, Dental examination Z01.20 and Dental caries K02.9 [facility] [id number] [place] [address] [id number] Oct, [facility] [id number] [place] [address] [id number] Oct, [facility] [id number] [place] [address] [id number] Sep, [facility] [id number] [place] [address] [id number] Sep, [facility] [id number] [place] [address] [id number] Sep, [facility] [id number] [place] [address] [id number] Sep, Other chronic pain 338.29 [facility] [id number] [place] [address] [id number] Aug, Diabetes type 2, uncontrolled E11.65 and Morbid obesity due to excess calories E66.01 [facility] [id number] [place] [address] [id number] Aug, Hair loss L65.9 [facility] [id number] [place] [address] [id number] Aug, [facility] [address] [id number] [place] [address] [id number] Jul, [facility] [address] [id number] [place] [address] [id number] Jul, [facility] [id number] [place] [address] [id number] Jun, [facility] [address] [id number] [place] [address] [id number] Jun, Hair loss L65.9 and Disorder of the skin and subcutaneous tissue, unspecified L98.9 [facility] [address] [id number] [place] [address] [id number] May, Type 2 diabetes mellitus with other diabetic kidney complication E11.29 ; Type 2 diabetes mellitus with hyperglycemia E11.65 ; Morbid obesity due to excess calories E66.01 and Essential hypertension I10 [id number] [place] [address] [id number] May, Diabetes type 2, uncontrolled E11.65 ; Encounter for immunization Z23 and Morbid obesity due to excess calories E66.01 [id number] [place] [address] [id number] May, [facility] [id number] [place] [address] Apr, [address] [id number] Apr, Hyperglycemia R73.9 [id number] [place] [address] [id number] Apr, [address] [id number] Apr, Depression F32.9 ; Encounter for immunization Z23 ; Hyperglycemia R73.9 and Anemia in other chronic diseases classified elsewhere D63.8 [facility] [id number] [place] [address] [id number] Mar, [address] [place] [address] [id number] Feb, Positive occult stool blood test 792.1 [id number] [place] [address] [id number] Feb, Depression 311 ; Other chronic pain 338.29 and Diabetes with renal manifestations, type II or unspecified type, not stated as uncontrolled 250.40 [facility] [address] [place] [address] Feb, Occult blood in stools 792.1 [id number] [place] [address] [id number] Feb, Anemia 285.9 ; Occult blood positive stool 792.1 ; Unspecified essential hypertension 401.9 and Other chronic pain 338.[address] [id number][place] [id number] Feb, [facility] [id number] [place] [address] [id number] Feb, Anemia 285.9 [facility] [id number] [place] [address] [id number] Feb, [facility] [id number] [place] [address] [id number] Feb, [facility] [id number] [place] [address] [id number] Feb, Diabetes with renal manifestations, type II or unspecified type, not stated as uncontrolled 250.40 ; Other chronic pain 338.29 ; Unspecified essential hypertension 401.9 ; Anemia 285.9 and Depression 311 [facility] [id number] [place] [address] [id number] Jan, [facility] [id number] [place] [address] [id number] Jan, Anemia 285.9 and Follow up V67.9 [facility] [id number] [place] [address] [id number] Jan, [facility] [id number] [place] [address] [id number] Jan, [facility] [id number] [place] [address] [id number] Jan, [facility] [id number] [place] [address] [id number] Dec, [facility] [address]00565[address], [place] [address] Oct, [facility] [id number] [place] [phone] Oct, [facility] [id number] [place] [address] Sep, [facility] [id number], [place] [id number] Sep, [facility] [id number] [place] [address] Sep, [facility] [place] [address] [id number] [place] [id number] Aug, [facility] [place] [facility] [address] [facility] [id number] [place] [address] Aug, [facility] [place] [facility] [address] [facility] [id number], [place] [address] Aug, [facility] [place] [address] [id number], [place] [id number] Aug, [facility] [place] [facility] [address] [facility] [id number] [place] [address] Aug, [facility] [place] [facility] [address] [facility] [id number] [place] [address] Aug, [facility] [place] [address] [facility] [id number], [place] [id number] Aug, [facility] [place] [facility] [address], [place] [address] Aug, [facility] [place] [address] [facility] [id number], [place] [id number] Jul, [facility] [place] [facility] [address]65[address], [place] [address] Jul, [facility] [place] [facility] [address] [id number], [place] [address] Jul, [facility] [place] [address] [id number], [place] [id number] Jul, [facility] [place] [facility] [address] [facility] [id number], [place] [address] Jul, [facility] [place] [address] [id number], [place] [id number] Jul, [facility] [place] [facility] [address] [facility] [id number], [place] [address] Jul, [facility] [place] [address] [id number], [place] [id number] Jun, [facility] [place] [address] [facility] [id number], [place] [id number] Jun, [facility] [place] [facility] [address] [facility] [id number], [place] [address] Jun, [facility] [place] [facility] [address] [facility] [id number], [place] [address] Jun, [facility] [place] [address] [id number], [place] [id number] Jun, [facility] [place] [facility] [address] [facility] [id number], [place] [address] Jun, [facility] [place] [address] [facility] [id number], [place] [id number] May, [facility] [place] [facility] [address] [facility] [id number], [place] [address] May, [facility] [place] [facility] [address] [facility] [id number], [place] [address] May, [facility] [place] [address] [facility] [id number], [place] [id number] Apr, [facility] [place] [facility] [address] [facility] [id number], [place] [address] Apr, [facility] [place] [address] [facility] [id number], [place] [id number] Apr, [facility] [address] [facility] [id number], [place] [id number] Apr, [facility] [place] [facility] [address] [facility] [id number], [place] [address] Apr, [facility] [place] [facility] [address] [facility] [id number], [place] [address] Apr, [facility] [place] [address] [facility] [id number], [place] [id number] Mar, [facility] [place] [facility] [address] [facility] [id number], [place] [address] Mar, [facility] [place] [address] [id number], [place] [id number] Mar, [facility] [place] [facility] [address] [id number] [place] [address] Mar, [facility] [place] [address] [id number] [place] [id number] Mar, [facility] [place] [facility] [address] [id number] [place] [address] Mar, [facility] [place] [address] [id number] [place] [id number] Mar, [facility] [place] [facility] [address] [facility] [id number] [place] [address] Mar, [facility] [place] [address] [id number] [place] [id number] Mar, [facility] [place] [facility] [address] [facility] [id number] [place] [address] Mar, [facility] [place] [address] [facility] [id number] [place] [id number] Feb, [facility] [place] [facility] [address] [facility] [id number] [place] [address] Feb, [facility] [place] [address] [facility] [id number] [place] [id number] Jan, [facility] [place] [facility] [address] [facility] [id number], [place] [address] Jan, [facility] [place] [address] [facility] [id number] [place] [id number] Jan, [facility] [place] [facility] [address] [facility] [id number], [place] [address] Jan, [facility] [place] [address] [facility] [id number] [place] [id number] Jan, [facility] [place] [facility] [address] [facility] [id number] [place] [address] Jan, [facility] [place] [facility] [address] [facility] [id number] [place] [address] Dec, [facility] [place] [facility] [address] [facility] [id number] [place] [address] Dec, [facility] [place] [address] [id number] [place] [id number] November, [facility] [place] [facility] [address] [id number] [place] [address] November, [facility] [place] [address] [id number] [place] [id number] November, [facility] [place] [facility] [address] [id number] [place] [address] November, [facility] [place] [address] [id number] [place] [id number] Oct, [facility] [place] [facility] [address] [id number] [place] [address] Oct, [facility] [place] [facility] [address] [facility] [id number] [place] [address] Oct, [facility] [place] [facility] [address] [place] [address] Oct, [facility] [place] [facility] [address] [facility] [id number] [place] [address] Oct, [facility] [place] [facility] [address] [facility] [id number] [place] [address] Oct, [facility] [place] [address] [id number], [place] [id number] Sep, [facility] [place] [address] [id number], [place] [id number] Sep, [facility] [place] [facility] [address] [id number], [place] [address] Sep, [facility] [place] [facility] [address] [id number] [place] [address] Sep, [facility] [place] [address] [id number] [place] [id number] Sep, [facility] [place] [facility] [address] [facility] [id number] [place] [address] Sep, [facility] [place] [facility] [address] [id number], [place] [address] Aug, [facility] [place] [facility] [address] [facility] [id number], [place] [address] Aug, [facility] [place] [address] [facility] [id number] [place] [id number] Aug, [facility] [place] [address] [facility] [id number] [place] [id number] Aug, [facility] [place] [facility] [address] [facility] [id number], [place] [address] Aug, [facility] [place] [address] [facility] [id number] [place] [id number] Aug, [facility] [place] [facility] [address]00565100[place], [place] [address] Aug, [facility] [place] [id number] [place] 3379259[address] Aug, [facility] [place] [facility] [address]00565100[place], [place] [address] Aug, [facility] [place] [address] [id number] [place] [id number] Aug, [facility] [place] [facility] [address]00565100[place], [place] [address] Aug, [facility] [place] [address] [id number], [place] [id number] Aug, [facility] [place] [facility] [address]00565100[place], [place] [address] Aug, [facility] [place] [facility] [address] [facility] [id number], [place] [address] Jul, [facility] [place] [id number], [place] 159343957 Jun, [facility] [place] [facility] [address] [facility] [id number], [place] [address] Jun, [facility] [place] [facility] [address]65100[place], [place] [address] Jun, [facility] [place] [facility] [address] [id number] [place] [address] Jun, [facility] [place] [address] [id number] [place] [id number] Jun, [facility] [place] [facility] [address] [id number] [place] [address] Jun, [facility] [place] [facility] [address] [id number] [place] [address] Jun, [facility] [place] [address] [id number] [place] [id number] Jun, [facility] [place] [facility] [address] [id number] [place] [address] Jun, [facility] [place] [facility] [address] [id number] [place] [address] May, [facility] [place] [id number], [place] 602642369 May, [facility] [place] [facility] [address] [id number], [place] [address] May, [facility] [place] [facility] [address] [id number], [place] [address] May, [facility] [place] [facility] [address] [id number], [place] [address] May, [facility] [place] [facility] [address] [facility] [id number], [place] [address] May, [facility] [place] [address] [id number], [place] 405522262 May, [facility] [place] [facility] [address] [id number], [place] [address] May, [facility] [place] [address] [facility] [id number], [place] [id number] May, [facility] [place] [facility] [address] [id number], [place] [address] May, [facility] [place] [address] [facility] [id number], [place] [id number] Apr, [facility] [address] [facility] [id number], [place] [address] Apr, [facility] [place] [facility] [address] [facility] [id number], [place] [address] Apr, [facility] [address] [facility] [id number], [place] 165713459 Apr, [facility] [place] [facility] [address] [facility] [id number], [place] [address] Apr, [facility] [address] [facility] [id number], [place] [address] Apr, [facility] [address] [id number], [place] 158255465 Apr, [facility] [place] [facility] [address]65100[place], [place] [address] Apr, [facility] [place] [facility] [address] [id number], [place] [address] Apr, [facility] [place] [facility] [address] [facility] [id number], [place] [address] Apr, [facility] [address] [id number], [place] 990649885 Apr, [facility] [place] [facility] [address] [facility] [id number], [place] [address] Apr, [facility] [address] [facility] [id number], [place] [id number] Apr, [facility] [place] [facility] [address] [facility] [id number], [place] [address] Apr, [facility] [address] [facility] [id number], [place] [id number] Apr, [facility] [place] [facility] [address] [facility] [id number], [place] [address] Apr, [facility] [place] [facility] [address] [facility] [id number], [place] [address] Apr, [facility] [address] [facility] [id number], [place] [address] Apr, [facility] [place] [address] [id number] [place] [id number] Apr, [facility] [address] [facility] [id number], [place] [address] Mar, [facility] [address] [facility] [id number], [place] [address] Mar, [facility] [place] [address] [id number] [place] [id number] Mar, [facility] [place] [address] [id number] [place] 104095548 Mar, [facility] [place] [address] [id number] [place] [id number] Mar, [facility] [place] [address] [id number] [place] 931530146 Feb, [facility] [place] [address] [id number] [place] [id number] Feb, [facility] [place] [address] [id number] [place] [id number] Feb, [facility] [address] [facility] [id number], [place] [address] Feb, [facility] [place] [address] [id number] [place] [id number] Feb, [facility] [place] [address] [id number] [place] [id number] Feb, [facility] [place] [address] [id number] [place] 152554096 Feb, [facility] [place] [address] [id number] [place] 307814715 Feb, [facility] [place] [address] [id number] [place] 011362512 Feb, [facility] [place] [address] [id number] [place] [id number] Jan, [facility] [place] [address] [id number] [place] 355261732 Jan, [facility] [place] [address] [id number] [place] 618297870 Jan, [facility] [place] [address] [id number] [place] [id number] Jan, [facility] [place] [address] [id number] [place] 553710085 Jan, [facility] [address]00565100[place], [place] [address] Jan, [facility] [place] [address] [id number] [place] [id number] Jan, [facility] [place] [address] [id number] [place] 937745897 Jan, [facility] [place] [address] [id number] [place] 132730937 Dec, [facility] [place] [address] [id number] [place] 619456611 November, [facility] [place] [address] [id number] [place] 241526247 November, [facility] [place] [address] [id number] [place] 089169187 November, [facility] [place] [address] [id number] [place] 745167931 November, [facility] [place] [address] [id number] [place] [id number] November, [facility] [place] [address] [id number] [place] [id number] November, [facility] [place] [address] [id number] [place] [id number] Jul, [facility] [place] [address] [id number] [place] [id number] Jul, [facility] [place] [address] [id number] [place] [id number] Jul, [facility] [place] [address] [id number] [place] [id number] Jun, [facility] [id number], [place] [address] Jun, [facility] [place] [address] [id number] [place] [id number] May, [facility] [address] [facility] [id number], [place] [address] May, [facility] [place] [address] [id number] [place] [id number] May, [facility] [address] [facility] [id number], [place] [address] May, [facility] [place] [address] [id number], [place] [id number] May, [facility] [address] [facility] [id number], [place] [address] May, [facility] [place] [address] [id number][place] [id number] Apr, [facility] [address], [place] [address] Apr, [facility] [address] [facility] [id number], [place] [address] Apr, [facility] [place] [address] [id number], [place] [id number] Apr, [facility] [place] [address] [id number], [place] [id number] Apr, [facility] [address] [facility] [id number], [place] [address] Apr, [facility] [address] [facility] [id number], [place] [address] Apr, [facility] [place] [address] [id number], [place] [id number] Apr, [facility] [address] [facility] [id number], [place] [address] Apr, [facility] [place] [address] [id number] [place] [id number] Apr, [facility] [place] [address] [id number], [place] [id number] Apr, [facility] [place] [address] [id number] [place] [id number] Mar, [facility] [place] [address] [id number] [place] [id number] Feb, [facility] [place] [address] [id number] [place] [id number] Jan, [facility] [place] [address] [id number] [place] [id number] Dec, [facility] [place] [address] [id number] [place] [id number] Dec, [facility] [place] [address] [id number] [place] [id number] Dec, [facility] [place] [address] [id number] [place] [id number] Dec, [facility] [place] [address] [id number] [place] [id number] Dec, [facility] [place] [address] [id number] [place] [id number] November, [facility] [place] [address] [id number] [place] [id number] November, [facility] [place] [address] [id number] [place] [id number] November, [facility] [address] [facility] [id number], [place] [address] November, [facility] [place] [address] [id number] [place] [id number] November, [facility] [place] [address] [id number] [place] [id number] November, [facility] [place] [address] [id number] [place] [id number] Oct, [facility] [place] [address] [id number] [place] [id number] Oct, [facility] [place] [address] [id number] [place] [id number] Oct, [facility] [place] [address] [id number] [place] [id number] Oct, [facility] [place] [address] [id number] [place] [id number] Oct, [facility] [place] [address] [id number] [place] [id number] Oct, [facility] [place] [address] [id number] [place] [id number] Sep, [facility] [place] [address] [id number] [place] [id number] Aug, [facility] [place] [address] [id number] [place] [id number] Aug, [facility] [place] [address] [id number] [place] [id number] Jul, [facility] [address] [facility] [id number], [place] [address] Jun, [facility] [id number] [place] [address] Jun, [facility] [id number] [place] [address] Jun, [facility] [id number] [place] [address] Jun, [facility] [id number] [place] [address] May, [facility] [id number], [place] [address] May, [facility] [address] [facility] [id number], [place] [address] Apr, [facility] [address] [facility] [id number], [place] [address] Apr, [facility] [address] [facility] [id number] [place] [id number] Apr, [facility] [place] [facility] [address] [facility] [id number], [place] [address] Feb, [facility] [place] [facility] [address] [id number] [place] [address], [place] [address] 15 Aug, 2010 [facility] [place] [facility] [address] [id number] [place] [address] 18 Jul, 2010 [facility] [place] [facility] [address] [id number] [place] [address] 30 Jun, 2010 [facility] [place] [facility] [address] [id number] [place] [address] 29 May, 2010 [facility] [place] [facility] [address] [id number] [place] [address] May, [facility] [place] [facility] [address] [id number] [place] [address] May, [facility] [place] [facility] [address] [id number] [place] [address] May, [facility] [place] [facility] [address] [id number] [place] [address] May, [facility] [place] [facility] [address] [id number] [place] [address] 16 Aug, 2009 [facility] [place] [facility] [address] [id number] [place] [address] Jun, [facility] [place] [facility] [address] [facility] [id number] [place] [address] Jun, [facility] [place] [facility] [address] [id number] [place] [address] Jun, [facility] [place] [facility] [address] [id number], [place] [address] 24 May, 2009 [facility] [place] [facility] [address] [id number] [place] [address] 28 Apr, 2009 [facility] [place] [facility] [address] [id number] [place] [address] Apr, [facility] [place] [facility] [address] [id number], [place] [address] Apr, [facility] [address] [facility] [id number], [place] [address] Jan, [facility] [address] [facility] [id number], [place] [address] Oct, [facility] [address] [facility] [id number], [place] [address] May, [facility] [address] [facility] [id number], [place] [address] May, IMMUNIZATIONS No Known Immunizations SOCIAL HISTORY Never Assessed REASON FOR VISIT New orders PLAN OF CARE VITAL SIGNS MEDICATIONS Unknown [...] Dialysis [facility] 2012 -Dr. Simon now [facility] Medical History Colonoscopy (polyps 2 ) [...]
--- OUTSIDE RECORDS SUMMARY | 2018-12-28 17:56 | XMS REPORT ---
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 Name Role Phone JETHRO SHETH Unavailable PROBLEMS Type Condition ICD9-CM Code [id number] Code Onset Dates Condition Status SNOMED Code Problem Chronic kidney disease, stage 4 (severe) N18.4 Active 255704154 Problem Psoriasis of scalp L40.9 Active 159781947 Problem Type 2 diabetes mellitus with hyperglycemia E11.65 Active 508805003997328 Problem Fibromyalgia M79.7 Active 174969818 Problem History of DVT (deep vein thrombosis) Z86.718 Active 499795897 Problem Carpal tunnel syndrome, bilateral G56.03 Active 35439522694111015 Problem Type 2 diabetes mellitus with other diabetic kidney complication E11.29 Active 083261953 Problem Anemia in other chronic diseases classified elsewhere D63.8 Active 717627337 Problem 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 Active 336301755 Problem Paresthesia of right upper extremity R20.2 Active 59510885 Problem Bilateral lower extremity edema R60.0 Active 324903593 Problem Supplemental oxygen dependent Z99.81 Active 806886348537 Problem Sleep apnea in adult G47.33 Active 09538555 Problem Chronic pain syndrome G89.4 Active 913952066 Problem 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 of 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 Active 079450410 Problem Essential hypertension I10 Active 40698272 Problem Gastroesophageal reflux disease without esophagitis K21.9 Active 589436743 Problem Chronic obstructive pulmonary disease, unspecified COPD type J44.9 Active 17936399 Problem 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 Active 629685906287621 Problem Primary insomnia F51.01 Active 8872272 Problem Oxygen desaturation during sleep G47.34 Active 952258819 Problem Right carpal tunnel syndrome G56.01 Active 920616586447152 Problem Diabetic polyneuropathy associated with type 2 diabetes mellitus E11.42 Active 54243763 Problem Depression, unspecified depression type F32.9 Active [id number] ALLERGIES No Information ENCOUNTERS Encounter Location Date Diagnosis [facility] [address] [place] [address] Feb, [facility] [address] [address] Feb, [facility] [address] [place] [address] Jan, [facility] [address] [place] [address] Jan, [facility] [address] [place] [address] Jan, [address] [id number] Jan, [facility] [address] [address] Jan, [facility] [address] [place] [address] Jan, [facility] [address] [place] [address] Jan, Essential hypertension I10 [facility] [address] [address] Jan, Chronic obstructive pulmonary disease, unspecified COPD type J44.9 [facility] [address] [address] Jan, [facility] [address] [place] [address] Jan, [facility] [address] [address] Jan, Type 2 diabetes mellitus with other diabetic kidney complication E11.29 ; Anemia in other chronic diseases classified elsewhere D63.8 ; Chronic obstructive pulmonary disease, unspecified COPD type J44.9 and BMI 60.0-69.9, adult Z68.44 [facility] [address] [address] Jan, [facility] [id number] [place] [address] Jan, [facility] [id number] [place] [id number] Jan, [facility] [address] [id number] [id number] Dec, [facility] [id number] [id number] Dec, [facility] [id number] [place] [id number] Dec, Essential hypertension I10 ; Type 2 diabetes mellitus with other diabetic kidney complication E11.29 ; Depression, unspecified depression type F32.9 ; Supplemental oxygen dependent Z99.81 ; Chronic pain syndrome G89.4 ; Fibromyalgia M79.7 ; Carpal tunnel syndrome, bilateral G56.03 and Chronic kidney disease, stage 4 (severe) N18.4 [facility] [address] [address] Dec, Essential hypertension I10 [facility] [address] [address] November, Type 2 diabetes mellitus with other diabetic kidney complication E11.29 [facility] [address] [address] November, Chronic pain syndrome G89.4 [facility] [address] [address] November, [facility] [address] [place] [address] November, [facility] [address] [address] November, [facility] [address] [address] Oct, Type 2 diabetes mellitus with other diabetic kidney complication E11.29 [address] [address] Oct, Primary insomnia F51.01 [id number] [place] [id number] Oct, Bilateral lower extremity edema R60.0 [place] [address] [place] [address] Oct, [place] [id number] [place] [address] Sep, Type 2 diabetes mellitus with other diabetic kidney complication E11.29 and Chronic obstructive pulmonary disease, unspecified COPD type J44.9 [place] [id number] [place] [address] 15 Aug, 2017 Type 2 diabetes mellitus with other diabetic kidney complication E11.29 [place] [id number] [place] [address] 12 Aug, 2017 Gastroesophageal reflux disease without esophagitis K21.9 ; 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 ; Chronic pain syndrome G89.4 ; Essential hypertension I10 and Type 2 diabetes mellitus with other diabetic kidney complication E11.29 [place] [address] [place] [address] 08 Aug, 2017 Chronic pain syndrome G89.4 [place] [address] [address] Aug, Type 2 diabetes mellitus with other diabetic kidney complication E11.29 [place] [address] [place] [address] Jul, Diabetic polyneuropathy associated with type 2 diabetes mellitus E11.42 [place] [address] [place] [address] Jul, Primary insomnia F51.01 [facility] [address] [address] Jul, [place] [address] [address] 14 Jul, 2017 Type 2 diabetes mellitus with other diabetic kidney complication E11.29 and Chronic obstructive pulmonary disease, unspecified COPD type J44.9 [place] [address] [address] 08 Jul, 2017 Type 2 diabetes mellitus with other diabetic kidney complication E11.29 [place] [id number] [place] [address] Jun, Type 2 diabetes mellitus with other diabetic kidney complication E11.29 [place] [address] [address] 27 Jun, 2017 [place] [id number] [place] [address] Jun, Chronic obstructive pulmonary disease, unspecified COPD type J44.9 [id number] [place] [address] May, Type 2 diabetes mellitus with other diabetic kidney complication E11.29 [place] [address] [address] May, intermediate current use of anticoagulant Z79.01 and Essential hypertension I10 [address] [place] [address] May, Anemia in other chronic diseases classified elsewhere D63.8 ; Chronic obstructive pulmonary disease, unspecified COPD type J44.9 ; Oxygen desaturation during sleep G47.34 ; Sleep apnea in adult G47.33 and Supplemental oxygen dependent Z99.81 [address] [address] May, Type 2 diabetes mellitus with other diabetic kidney complication E11.29 ; Essential hypertension I10 ; Chronic pain syndrome G89.4 ; BMI 40.0- 44.9, adult Z68.41 ; Gastroesophageal reflux disease without esophagitis K21.9 ; intermediate current use of anticoagulant Z79.01 ; 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 ; Diabetic polyneuropathy associated with type 2 diabetes mellitus E11.42 ; Edema of both legs R60.0 and Supplemental oxygen dependent Z99.81 [place] [id number] [place] [address] 08 May, 2017 [place] [id number] [place] [address] May, Essential hypertension I10 and Gastroesophageal reflux disease without esophagitis K21.9 [place] [id number] [place] [address] May, [place] [id number] [place] [address] May, Type 2 diabetes mellitus with other diabetic kidney complication E11.29 and intermediate current use of anticoagulant Z79.01 [place] [id number] [place] [address] Apr, Chronic pain syndrome G89.4 and Essential hypertension I10 [place] [id number] [place] [address] Apr, Type 2 diabetes mellitus with other diabetic kidney complication E11.29 [place] [id number] [place] [address] Apr, Type 2 diabetes mellitus with other diabetic kidney complication E11.29 [place] [id number] [place] [address] Apr, Essential hypertension I10 [place] [id number] [place] [address] Apr, Gastroesophageal reflux disease without esophagitis K21.9 [place] [id number] [place] [address] Apr, Type 2 diabetes mellitus with other diabetic kidney complication E11.29 [place] [id number] [place] [address] Apr, Type 2 diabetes mellitus with other diabetic kidney complication E11.29 and intermediate current use of anticoagulant Z79.01 [facility] [address] [address] 27 Mar, 2017 Encounter for immunization Z23 and Preoperative examination Z01.818 [facility] [id number] [place] [address] Mar, [facility] [id number] [place] [address] 12 Mar, 2017 Type 2 diabetes mellitus with other diabetic kidney complication E11.29 [facility] [id number] [place] [address] 08 Mar, 2017 Type 2 diabetes mellitus with other diabetic kidney complication E11.29 [place] [id number] [place] [address] 06 Mar, 2017 Gastroesophageal reflux disease without esophagitis K21.9 [facility] [id number] [place] [address] Mar, Essential hypertension I10 [facility] [id number] [place] [address] Feb, intermediate current use of anticoagulant Z79.01 [facility] [id number] [place] [address] Feb, Type 2 diabetes mellitus with other diabetic kidney complication E11.29 [facility] [id number] [place] [address] Feb, Type 2 diabetes mellitus with other diabetic kidney complication E11.29 [facility] [id number] [place] [address] Feb, Type 2 diabetes mellitus with other diabetic kidney complication E11.29 [facility] [id number] [place] [address] Feb, Gastroesophageal reflux disease without esophagitis K21.9 [facility] [id number] [place] [address] Feb, Type 2 diabetes mellitus with other diabetic kidney complication E11.29 [facility] [address] [place] [address] Feb, 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 [facility] [id number] [place] [address] Jan, Type 2 diabetes mellitus with other diabetic kidney complication E11.29 [facility] [id number] [place] [address] Jan, Type 2 diabetes mellitus with other diabetic kidney complication E11.29 [facility] [id number] [place] [address] Jan, Chronic pain syndrome G89.4 [facility] [id number] [place] [address] Jan, [facility] [id number] [place] [address] Jan, [facility] [id number] [place] [address] Jan, [facility] [id number] [place] [address] Jan, [facility] [address] [place] [address] Jan, Primary insomnia F51.01 ; Type 2 diabetes mellitus with other diabetic kidney complication E11.29 ; Chronic pain syndrome G89.4 and Essential hypertension I10 [facility] [address] [address] Jan, Primary insomnia F51.01 [facility] [address] [place] [address] Jan, Type 2 diabetes mellitus with other diabetic kidney complication E11.29 [facility] [address] [address] Jan, [facility] [id number] [place] [address] Jan, Chronic obstructive pulmonary disease, unspecified COPD type J44.9 [facility] [address] [place] [address] Jan, Essential hypertension I10 ; Type 2 diabetes mellitus with other diabetic kidney complication E11.29 ; Chronic obstructive pulmonary disease, unspecified COPD type J44.9 ; Chronic kidney disease, stage 4 (severe) N18.4 ; Right carpal tunnel syndrome G56.01 ; 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 ; intermediate (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 and Diabetic polyneuropathy associated with type 2 diabetes mellitus E11.42 [place] [id number] [place] [address] Jan, Gastroesophageal reflux disease without esophagitis K21.9 [facility] [id number] [place] [address] Dec, [facility] [id number] [place] [address] Dec, [facility] [id number] [place] [address] Dec, 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 ; Chronic pain syndrome G89.4 and Essential hypertension I10 [facility] [id number] [place] [address] Dec, [facility] [id number] [place] [address] Dec, Type 2 diabetes mellitus with other diabetic kidney complication E11.29 [facility] [address] [address] Dec, [facility] [id number] [place] [address] Dec, Gastroesophageal reflux disease without esophagitis K21.9 [facility] [id number] [place] [address] November, Type 2 diabetes mellitus with other diabetic kidney complication E11.29 [facility] [address] [address] November, [facility] [address] [address] November, Type 2 diabetes mellitus with other diabetic kidney complication E11.29 [facility] [address] [address] November, [facility] [address] [address] November, Type 2 diabetes mellitus with other diabetic kidney complication E11.29 [facility] [address] [place] [address] November, [facility] [address] [place] [address] Oct, Essential hypertension I10 [facility] [id number] [place] [address] Oct, Psoriasis of scalp L40.9 [facility] [address] [address] Oct, Essential hypertension I10 and Chronic pain syndrome G89.4 [facility] [address] [address] Oct, [facility] [address] [address] Sep, Type 2 diabetes mellitus with other diabetic kidney complication E11.29 [facility] [address] [address] Sep, [facility] [address] [address] Sep, Type 2 diabetes mellitus with other diabetic kidney complication E11.29 [facility] [address] [address] Sep, Type 2 diabetes mellitus with other diabetic kidney complication E11.29 [place] [id number] [place] [address] Sep, 2017 Type 2 diabetes mellitus with [...] extremity R20.2 and Psoriasis of scalp L40.9 [place] [id number] [place] [address] Sep, [address] [address] Aug, Essential hypertension I10 [place] [address] [address] Aug, History of DVT (deep vein thrombosis) Z86.718 [place] [address] [address] Aug, [place] [id number] [place] [address] Jul, [place] [id number] [place] [address] Jul, [place] [address] [place] [address] Jul, intermediate current use of anticoagulant Z79.01 ; Chronic pain syndrome G89.4 and Chronic kidney disease, stage 4 (severe) N18.4 [place] [id number] [place] [address] Jul, [place] [address] [address] Jul, [place] [address] [address] Jul, [place] [id number] [place] [address] Jul, [place] [address] [place] [address] Jul, [place] [id number] [place] [address] Jul, Type 2 diabetes mellitus with other diabetic kidney complication E11.29 [place] [id number] [place] [address] Jul, History of DVT (deep vein thrombosis) Z86.718 [place] [id number] [place] [address] 23 Jun, 2016 [place] [id number] [place] [address] Jun, History of DVT (deep vein thrombosis) Z86.718 [place] [id number] [place] [address] 15 Jun, 2016 Post traumatic stress disorder (PTSD) F43.10 [place] [address] [address] 07 Jun, 2016 Type 2 diabetes mellitus [...] M79.641 and Right wrist pain M25.531 [facility] [id number] [place] [address] May, [facility] [id number] [place] [address] May, [facility] [id number] [place] [address] May, [facility] [id number] [place] [address] May, [facility] [id number] [place] [address] May, Anemia in other chronic diseases classified elsewhere D63.8 [facility] [id number] [place] [address] May, [facility] [id number] [place] [address] Apr, [facility] [id number] [place] [address] [id number] 27 Mar, 2016 Dermatofibroma D23.9 [facility] [id number] [place] [phone] 20 Mar, 2016 [facility] [id number] [place] [phone] 14 Mar, 2016 Chronic pain syndrome G89.4 [facility] [id number] [place] [phone] 09 Mar, 2016 [facility] [id number] [place] [phone] 07 Mar, 2016 [facility] [id number] [place] [phone] 06 Mar, 2016 [facility] [id number] [place] [phone] Feb, [facility] [address] [address] Feb, [facility] [id number] [place] [phone] Feb, [facility] [address] [place] [phone] Feb, [facility] [id number] [place] [phone] Feb, [facility] [address] [place] [phone] Feb, [facility] [id number] [place] [phone] Feb, Type 2 diabetes mellitus with other [...] failure, chronic, stage 4 (severe) N18.4 [facility] [address] [place] [phone] Feb, Skin tags, multiple acquired L91.8 [facility] [id number] [place] [phone] Jan, [facility] [id number] [place] [address] [phone] Jan, Dental examination Z01.20 [facility] [id number] [place] [phone] Jan, [address] [place] [phone] Jan, Type 2 diabetes mellitus with other [...] Renal failure, chronic, stage 4 (severe) N18.4 [id number] [place] [phone] Dec, Diabetes type 2, uncontrolled E11.65 [id number] [place] [phone] Dec, [id number] [place] [phone] Dec, Type 2 diabetes mellitus with other [...] F51.01 and Depression, unspecified depression type F32.9 [facility] [id number] [place] [address] [id number] Dec, Dental caries K02.9 [facility] [id number] [place] [address] [phone] Dec, [facility] [address] [id number] [place] [id number] Dec, Dental examination Z01.20 [facility] [address] [id number] [place] [id number] November, Dental examination Z01.20 and Dental caries K02.9 [facility] [address] [id number] [place] [address] [id number] Oct, [facility] [address] [id number] [place] [address] [phone] Oct, [facility] [address] [id number] [place] [address] [phone] Sep, [facility] [address] [id number] [place] [address] [id number] Sep, [facility] [id number] [place] [address] [id number] Sep, [facility] [address] [id number] [place] [address] [id number] Sep, Other chronic pain 338.29 [facility] [address] [id number] [place] [address] [id number] Aug, Diabetes type 2, uncontrolled E11.65 and Morbid obesity due to excess calories E66.01 [facility] [address] [id number] [place] [address] [id number] Aug, Hair loss L65.9 [facility] [address] [id number] [place] [address] [id number] Aug, [facility] [address] [id number] [place] [address] [id number] Jul, [facility] [address] [id number] [place] [address] [id number] Jul, [facility] [address] [id number] [place] [address] [id number] Jun, [facility] [address] [id number] [place] [address] [id number] Jun, Hair loss L65.9 and Disorder of the skin and subcutaneous tissue, unspecified L98.9 [facility] [address] [id number] [place] [address] [phone] May, Type 2 diabetes mellitus with other diabetic kidney complication E11.29 ; Type 2 diabetes mellitus with hyperglycemia E11.65 ; Morbid obesity due to excess calories E66.01 and Essential hypertension I10 [id number] [place] [address] [id number] May, Diabetes type 2, uncontrolled E11.65 ; Encounter for immunization Z23 and Morbid obesity due to excess calories E66.01 [id number] [place] [address] [id number] May, [facility] [id number] [place] [phone] Apr, [address] [id number] Apr, Hyperglycemia R73.9 [id number] [place] [address] [phone] Apr, [address] [id number] Apr, Depression F32.9 ; Encounter for immunization Z23 ; Hyperglycemia R73.9 and Anemia in other chronic diseases classified elsewhere D63.8 [facility] [id number] [place] [address] [id number] Mar, [address] [place] [address] [phone] Feb, Positive occult stool blood test 792.1 [id number] [place] [address] [phone] Feb, Depression 311 ; Other chronic pain 338.29 and Diabetes with renal manifestations, type II or unspecified type, not stated as uncontrolled 250.40 [facility] [address] [place] [phone] Feb, Occult blood in stools 792.1 [id number] [place] [address] [id number] Feb, Anemia 285.9 ; Occult blood positive stool 792.1 ; Unspecified essential hypertension 401.9 and Other chronic pain 338.[address] [id number] [place] [phone] Feb, [facility] [id number] [place] [address] [id number] Feb, Anemia 285.9 [facility] [id number] [place] [address] [id number] Feb, [facility] [id number] [place] [address] [id number] Feb, [facility] [id number] [place] [address] [id number] Feb, Diabetes with renal manifestations, type II or unspecified type, not stated as uncontrolled 250.40 ; Other chronic pain 338.29 ; Unspecified essential hypertension 401.9 ; Anemia 285.9 and Depression 311 [facility] [id number] [place] [address] [id number] Jan, [facility] [id number] [place] [address] [id number] Jan, Anemia 285.9 and Follow up V67.9 [facility] [id number] [place] [address] [id number] Jan, [facility] [id number] [place] [address] [id number] Jan, [facility] [id number] [place] [address] [id number] Jan, [facility] [id number] [place] [address] [id number] Dec, [facility] [address] [address] Oct, [facility] [id number] [place] [phone] Oct, [facility] [id number] [place] [phone] Sep, [facility] [id number] [place] [id number] Sep, [facility] [id number] [place] [phone] Sep, [facility] [address] [id number] [place] [phone] Aug, [facility] [place] [facility] [address] [facility] [id number] [place] [address] Aug, [facility] [place] [facility] [address] [facility] [id number] [place] [address] Aug, [facility] [address] [id number] [place] [id number] Aug, [facility] [place] [facility] [address] [facility] [id number] [place] [address] Aug, [facility] [place] [facility] [address] [facility] [id number] [place] [address] Aug, [facility] [address] [facility] [id number] [place] [id number] Aug, [facility] [place] [facility] [address] [place] [address] Aug, [facility] [address] [facility] [id number] [place] [id number] Jul, [facility] [place] [facility] [address] [address] Jul, [facility] [place] [facility] [id number] [address] Jul, [facility] [address] [id number] [place] [id number] Jul, [facility] [place] [facility] [address] [facility] [id number] [place] [address] Jul, [facility] [address] [id number] [place] [id number] Jul, [facility] [place] [facility] [address] [facility] [id number] [place] [address] Jul, [facility] [address] [id number] [place] [id number] Jun, [facility] [address] [facility] [id number] [place] [id number] Jun, [facility] [place] [facility] [address] [facility] [id number] [place] [address] Jun, [facility] [place] [facility] [address] [facility] [id number] [place] [address] Jun, [facility] [address] [id number] [place] [id number] Jun, [facility] [place] [facility] [address] [facility] [id number] [place] [address] Jun, [facility] [address] [facility] [id number] [place]INGS[place] [id number] May, [facility] [place] [facility] [address] [facility] [id number] [place] [address] May, [facility] [place] [facility] [address] [facility] [id number] [place] [address] May, [facility] [address] [facility] [id number] [place] [id number] Apr, [facility] [place] [facility] [address] [facility] [id number] [place] [address] Apr, [facility] [address] [facility] [id number] [place] [id number] Apr, [facility] [address] [facility] [id number] [place] [id number] Apr, [facility] [place] [facility] [address] [facility] [id number] [place] [address] Apr, [facility] [place] [facility] [address] [facility] [id number] [place] [address] Apr, [facility] [address] [facility] [id number] [place] [id number] Mar, [facility] [place] [facility] [address] [facility] [id number] [place] [address] Mar, [facility] [address] [id number] [place] [id number] Mar, [facility] [place] [facility] [address] [id number] [place] [address] Mar, [facility] [address] [id number] [place] [id number] Mar, [facility] [place] [facility] [address] [id number] [place] [address] Mar, [facility] [address] [id number] [place] [id number] Mar, [facility] [place] [facility] [address] [facility] [id number] [place] [address] Mar, [facility] [address] [id number] [place] [id number] Mar, [facility] [place] [facility] [address] [facility] [id number] [place] [address] Mar, [facility] [address] [facility] [id number] [place] [id number] Feb, [facility] [place] [facility] [address] [facility] [id number] [place] [address] Feb, [facility] [address] [facility] [id number] [place] [id number] Jan, [facility] [place] [facility] [address] [facility] [id number] [place] [address] Jan, [facility] [address] [facility] [id number] [place] [id number] Jan, [facility] [place] [facility] [address] [facility] [id number] [place] [address] Jan, [facility] [address] [facility] [id number] [place] [id number] Jan, [facility] [place] [facility] [address] [facility] [id number] [place] [address] Jan, [facility] [place] [facility] [address] [facility] [id number] [place] [address] Dec, [facility] [place] [facility] [address] [facility] [id number] [place] [address] Dec, [facility] [address] [id number] [place] [id number] November, [facility] [place] [facility] [address] [id number] [place] [address] November, [facility] [address] [id number] [place] [id number] November, [facility] [place] [facility] [address] [id number] [place] [address] November, [facility] [address] [id number] [place] [id number] Oct, [facility] [place] [facility] [address] [id number] [place] [address] Oct, [facility] [place] [facility] [address] [facility] [id number] [place] [address] Oct, [facility] [place] [facility] [address] [address] Oct, [facility] [place] [facility] [address] [facility] [id number] [place] [address] Oct, [facility] [place] [facility] [address] [facility] [id number] [place] [address] Oct, [facility] [address] [id number] [place] [id number] Sep, [facility] [address] [id number] [place] [address] Sep, [facility] [place] [facility] [address] [id number] [place] [address] Sep, [facility] [place] [facility] [address] [id number] [place] [address] Sep, [facility] [address] [id number] [place] [address] Sep, [facility] [place] [facility] [address] [facility] [id number] [place] [address] Sep, [facility] [place] [facility] [address] [id number] [place] [address] Aug, [facility] [place] [facility] [address] [facility] [id number] [place] [address] Aug, [facility] [address] [facility] [id number] [place] [id number] Aug, [facility] [address] [facility] [id number] [place] [id number] Aug, [facility] [place] [facility] [address] [facility] [id number] [place] [address] Aug, [facility] [address] [facility] [id number] [place] [id number] Aug, [facility] [place] [facility] [address] [place] [address] Aug, [facility] [id number] [place] [id number] Aug, [facility] [place] [facility] [address]005[address] [address] Aug, [facility] [address] [id number] [place] [id number] Aug, [facility] [place] [facility] [address]005[address] [address] Aug, [facility] [address] [id number] [place] [id number] Aug, [facility] [place] [facility] [address] [place] [address] Aug, [facility] [place] [facility] [address] [facility] [id number] [place] [address] Jul, [facility] [id number] [place] [id number] Jun, [facility] [place] [facility] [address] [facility] [id number] [place] [address] Jun, [facility] [place] [facility] [address] [place] [address] Jun, [facility] [place] [facility] [address] [id number] [place] [address] Jun, [facility] [address] [id number] [place] [id number] Jun, [facility] [place] [facility] [address] [id number] [place] [address] Jun, [facility] [place] [facility] [address] [id number] [place] [address] Jun, [facility] [address] [id number] [place] [id number] Jun, [facility] [place] [facility] [address] [id number] [place] [address] Jun, [facility] [place] [facility] [address] [id number] [address] May, [facility] [id number] [place] [id number] May, [facility] [place] [facility] [address] [id number] [place] [address] May, [facility] [place] [facility] [address] [id number] [place] [address] May, [facility] [place] [facility] [address] [id number] [place] [address] May, [facility] [place] [facility] [address] [facility] [id number] [place] [address] May, [facility] [address] [id number] [place] [address] May, [facility] [place] [facility] [address] [id number] [place] [address] May, [facility] [address] [facility] [id number] [place] [id number] May, [facility] [place] [facility] [address] [id number] [place] [address] May, [facility] [address] [facility] [id number] [place] [id number] Apr, [facility] [address] [facility] [id number] [place] [address] Apr, [facility] [place] [facility] [address] [facility] [id number] [place] [address] Apr, [facility] [address] [facility] [id number] [place] [id number] Apr, [facility] [place] [facility] [address] [facility] [id number] [place] [address] Apr, [facility] [address] [facility] [id number] [place] [address] Apr, [facility] [address] [id number] [place] [address] Apr, [facility] [place] [facility] [id number] [place] [address] Apr, [facility] [address] [id number] [place] [address] Apr, [facility] [address] [facility] [id number] [place] [address] Apr, [facility] [address] [id number] [place] [id number] Apr, [facility] [address] [facility] [id number] [place] [address] Apr, [facility] [address] [facility] [id number] [place] [id number] Apr, [facility] [address] [facility] [id number] [place] [address] Apr, [facility] [address] [facility] [id number] [place] [id number] Apr, [facility] [address] [facility] [id number] [place] [address] Apr, [facility] [address] [facility] [id number] [place] [address] Apr, [facility] [address] [facility] [id number] [place] [address] Apr, [facility] [place] [address] [id number] [place] [id number] Apr, [facility] [address] [facility] [id number] [place] [address] Mar, [facility] [address] [facility] [id number] [place] [address] Mar, [facility] [place] [address] [id number] [place] [id number] Mar, [facility] [place] [address] [id number] [place] [id number] Mar, [facility] [place] [address] [id number] [place] [id number] Mar, [facility] [place] [address] [id number] [place] [id number] Feb, [facility] [place] [address] [id number] [place] [id number] Feb, [facility] [place] [address] [id number] [place] [id number] Feb, [facility] [address] [facility] [id number] [place] [address] Feb, [facility] [place] [address] [id number] [place] [id number] Feb, [facility] [place] [address] [id number] [place] [id number] Feb, [facility] [place] [address] [id number] [place] [id number] Feb, [facility] [place] [address] [id number] [place] [id number] Feb, [facility] [place] [address] [id number] [place] [id number] Feb, [facility] [place] [address] [id number] [place] [id number] Jan, [facility] [place] [address] [id number] [place] [id number] Jan, [facility] [place] [address] [id number] [place] [id number] Jan, [facility] [place] [address] [id number] [place] [id number] Jan, [facility] [place] [address] [id number] [place] [id number] Jan, [facility] [id number] [place] [address] Jan, [facility] [place] [address] [id number] [place] [id number] Jan, [facility] [place] [address] [id number] [place] [id number] Jan, [facility] [place] [address] [id number] [place] [id number] Dec, [facility] [place] [address] [id number] [place] [id number] November, [facility] [place] [address] [id number] [place] [id number] November, [facility] [place] [address] [id number] [place] [address] November, [facility] [place] [address] [id number] [place] [address] November, [facility] [place] [address] [id number] [place] [id number] November, [facility] [place] [address] [id number] [place] [id number] November, [facility] [place] [address] [id number] [place] [address] Jul, [facility] [place] [address] [id number] [place] [id number] Jul, [facility] [place] [address] [id number] [place] [id number] Jul, [facility] [place] [address] [id number] [place] [id number] Jun, [facility] [id number] [place] [address] Jun, [facility] [place] [address] [id number] [place] [id number] May, [facility] [place] [facility] [address] [facility] [id number] [place] [address] May, [facility] [place] [address] [id number] [place] [id number] May, [facility] [place] [facility] [address] [facility] [id number] [place] [address] May, [facility] [place] [address] [id number] [id number] May, [facility] [place] [facility] [address] [facility] [id number] [place] [address] May, [facility] [place] [address] [id number] [place] [id number] Apr, [facility] [place] [facility] [id number] [place] [address] Apr, [facility] [place] [facility] [address] [facility] [id number] [place] [address] Apr, [facility] [place] [address] [id number] [place] [id number] Apr, [facility] [place] [address] [id number] [place] [id number] Apr, [facility] [place] [facility] [address] [facility] [id number] [place] [address] Apr, [facility] [place] [facility] [address] [facility] [id number] [place] [address] Apr, [facility] [place] [address] [id number] [place] [id number] Apr, [facility] [place] [facility] [address] [facility] [id number] [place] [address] Apr, [facility] [place] [address] [id number] [place] [id number] Apr, [facility] [place] [address] [id number] [place] [id number] Apr, [facility] [place] [address] [id number] [place] [id number] Mar, [facility] [place] [address] [id number] [place] [id number] Feb, [facility] [place] [address] [id number] [place] [address] Jan, [facility] [place] [address] [id number] [place] [address] Dec, [facility] [place] [address] [id number] [place] [id number] Dec, [facility] [place] [address] [id number] [place] [id number] Dec, [facility] [place] [address] [id number] [place] [id number] Dec, [facility] [place] [address] [id number] [place] [id number] Dec, [facility] [place] [address] [id number] [place] [id number] November, [facility] [place] [address] [id number] [place] [id number] November, [facility] [place] [address] [id number] [place] [id number] November, [facility] [address] [facility] [id number] [place] [address] November, [facility] [place] [address] [id number] [place] [id number] November, [facility] [place] [address] [id number] [place] [id number] November, [facility] [place] [address] [id number] [place] [id number] Oct, [facility] [place] [address] [id number] [place] [id number] Oct, [facility] [place] [address] [id number] [place] [id number] Oct, [facility] [place] [address] [id number] [place] [id number] Oct, [facility] [place] [address] [id number] [place] [id number] Oct, [facility] [place] [address] [id number] [place] [address] Oct, [facility] [place] [address] [id number] [place] [id number] Sep, [facility] [place] [address] [id number] [place] [id number] Aug, [facility] [place] [address] [id number] [place] [id number] Aug, [facility] [place] [address] [id number] [place] [id number] Jul, [facility] [place] [facility] [address] [facility] [id number] [place] [address] Jun, [facility] [place] [facility] [address] [place] [id number] [place] [address] Jun, [facility] [place] [facility] [id number] [place] [address] Jun, [facility] [place] [facility] [id number] [place] [address] Jun, [facility] [place] [facility] [id number] [place] [address] May, [facility] [place] [facility] [id number] [place] [address] May, [facility] [place] [facility] [address] [facility] [id number] [place] [address] Apr, [facility] [place] [facility] [address] [facility] [id number] [place] [address] Apr, [facility] [place] [facility] [address] [facility] [id number] [place] [address] Apr, [facility] [place] [facility] [address] [facility] [id number] [place] [address] Feb, [facility] [place] [facility] [id number] [place] [address], [place] [address] 15 Aug, 2010 [facility] [place] [facility] [address] [id number] [place] [address] 18 Jul, 2010 [facility] [place] [facility] [address] [id number] [place] [address] 30 Jun, 2010 [facility] [place] [facility] [address] [id number] [place] [address] 29 May, 2010 [facility] [place] [facility] [address] [id number] [place] [address] May, [facility] [place] [facility] [address] [id number] [place] [address] May, [facility] [place] [facility] [address] [id number] [place] [address] May, [facility] [place] [facility] [address] [id number] [place] [address] May, [facility] [place] [facility] [address] [id number] [place] [address] 16 Aug, 2009 [facility] [place] [facility] [address] [id number] [place] [address] Jun, [facility] [place] [facility] [address] [facility] [id number] [place] [address] Jun, [facility] [place] [facility] [address] [id number] [place] [address] Jun, [facility] [place] [facility] [address] [id number] [place] [address] 24 May, 2009 [facility] [place] [facility] [address] [id number] [place] [address] 28 Apr, 2009 [facility] [place] [facility] [address] [id number] [place] [address] Apr, [facility] [place] [facility] [address] [id number] [place] [address] Apr, [facility] [address] [facility] [id number] [place] [address] Jan, [facility] [address] [facility] [id number] [place] [address] Oct, [facility] [address] [facility] [id number] [place] [address] May, [facility] [address] [facility] [id number] [place] [address] May, IMMUNIZATIONS No Known Immunizations SOCIAL HISTORY Never Assessed REASON FOR VISIT refill for prednisone PLAN OF CARE VITAL SIGNS MEDICATIONS Unknown [...] Dialysis [facility] 2012 -Dr. Simon now [facility] Medical History Colonoscopy (polyps 2 ) [...]
--- OUTSIDE RECORDS SUMMARY | 2018-12-28 17:57 | XMS REPORT ---
Author Author ASYA SNOW 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 Name Role Phone ASYA SNOW Unavailable PROBLEMS Type Condition ICD9-CM Code GDO20-DY Code Onset Dates Condition Status SNOMED Code Problem Chronic kidney disease, stage 4 (severe) N18.4 Active 301943883 Problem Psoriasis of scalp L40.9 Active 806906434 Problem Type 2 diabetes mellitus with hyperglycemia E11.65 Active 971901542898498 Problem Fibromyalgia M79.7 Active 493499989 Problem History of DVT (deep vein thrombosis) Z86.718 Active 321358297 Problem Carpal tunnel syndrome, bilateral G56.03 Active 20892069468605723 Problem Type 2 diabetes 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.29 Active 147046599 Problem Anemia in other chronic diseases classified elsewhere D63.8 Active 058195269 Problem 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 Active 787680612 Problem Paresthesia of right upper extremity R20.2 Active 79545153 Problem Bilateral lower extremity edema R60.0 Active 472492173 Problem Supplemental oxygen dependent Z99.81 Active 644808226195 Problem Sleep apnea in adult G47.33 Active 31651773 Problem Chronic pain syndrome G89.4 Active 380890299 Problem prison current use of anticoagulant Z79.01 Active 018367992 Problem Essential hypertension I10 Active 61652264 Problem Gastroesophageal reflux disease without esophagitis K21.9 Active 632255295 Problem Chronic obstructive pulmonary disease, unspecified COPD type J44.9 Active 54250516 Problem 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 Active 708764471709340 Problem Primary insomnia F51.01 Active 8673243 Problem Oxygen desaturation during sleep G47.34 Active 492073186 Problem Right carpal tunnel syndrome G56.01 Active 729601053006833 Problem Diabetic polyneuropathy associated with type 2 diabetes mellitus E11.42 Active 85236429 Problem Depression, unspecified depression type F32.9 Active 32647779 ALLERGIES No Information ENCOUNTERS Encounter Location Date Diagnosis [facility] [address] [address] Feb, [facility] [address] [address] Feb, [facility] [address], [place] [address] Jan, [facility] [address] [address] Jan, [facility] [address], [place] [address] Jan, [address] [id number] Jan, [facility] [address], [place] [address] Jan, [facility] [address], [place] [address] Jan, [facility] [address], [place] [address] Jan, Essential hypertension I10 [facility] [address], [place] [address] Jan, Chronic obstructive pulmonary disease, unspecified COPD type J44.9 [facility] [address], [place] [address] Jan, [facility] [address], [place] [address] Jan, [facility] [address], [place] [address] Jan, Type 2 diabetes mellitus with other diabetic kidney complication E11.29 ; Anemia in other chronic diseases classified elsewhere D63.8 ; Chronic obstructive pulmonary disease, unspecified COPD type J44.9 and BMI 60.0-69.9, adult Z68.44 [facility] [id number] [address] Jan, [facility] [id number] [place] [address] Jan, [facility] [id number] [id number] Jan, [facility] [id number] [place] [id number] Dec, [facility] [id number] [place] [id number] Dec, [facility] [id number] [place] [id number] Dec, Essential hypertension I10 ; Type 2 diabetes mellitus with other diabetic kidney complication E11.29 ; Depression, unspecified depression type F32.9 ; Supplemental oxygen dependent Z99.81 ; Chronic pain syndrome G89.4 ; Fibromyalgia M79.7 ; Carpal tunnel syndrome, bilateral G56.03 and Chronic kidney disease, stage 4 (severe) N18.4 [facility] [address] [place] [address] Dec, Essential hypertension I10 [facility] [id number] [place] [address] November, Type 2 diabetes mellitus with other diabetic kidney complication E11.29 [facility] [id number], [place] [address] November, Chronic pain syndrome G89.4 [facility] [address], [place] [address] November, [facility] [id number] [place] [address] November, [facility] [id number] [place] [address] November, [facility] [id number], [place] [address] Oct, Type 2 diabetes mellitus with other diabetic kidney complication E11.29 [facility] [address], [place] [address] Oct, Primary insomnia F51.01 [place] [address] [id number] [id number] Oct, Bilateral lower extremity edema R60.0 [facility] [address] [place] [address] Oct, [facility] [id number] [place] [address] Sep, Type 2 diabetes mellitus with other diabetic kidney complication E11.29 and Chronic obstructive pulmonary disease, unspecified COPD type J44.9 [facility] [address] [place] [address] 15 Aug, 2017 Type 2 diabetes mellitus with other diabetic kidney complication E11.29 [address] [place] [address] 12 Aug, 2017 Gastroesophageal reflux disease without esophagitis K21.9 ; 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 ; Chronic pain syndrome G89.4 ; Essential hypertension I10 and Type 2 diabetes mellitus with other diabetic kidney complication E11.29 [facility] [address], [place] [address] 08 Aug, 2017 Chronic pain syndrome G89.4 [facility] [address] [place] [address] Aug, Type 2 diabetes mellitus with other diabetic kidney complication E11.29 [facility] [address], [place] [address] Jul, Diabetic polyneuropathy associated with type 2 diabetes mellitus E11.42 [facility] [address] [place] [address] Jul, Primary insomnia F51.01 [facility] [address], [place] [address] Jul, [facility] [address], [place] [address] Jul, Type 2 diabetes mellitus with other diabetic kidney complication E11.29 and Chronic obstructive pulmonary disease, unspecified COPD type J44.9 [facility] [address] [place] [address] Jul, Type 2 diabetes mellitus with other diabetic kidney complication E11.29 [facility] [id number] [place] [address] Jun, Type 2 diabetes mellitus with other diabetic kidney complication E11.29 [facility] [id number] [place] [address] 27 Jun, 2017 [facility] [id number] [place] [address] Jun, Chronic obstructive pulmonary disease, unspecified COPD type J44.9 [facility] [id number] [place] [address] May, Type 2 diabetes mellitus with other diabetic kidney complication E11.29 [facility] [id number] [place] [address] May, 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 and Essential hypertension I10 [address] [place] [address] May, Anemia in other chronic diseases classified elsewhere D63.8 ; Chronic obstructive pulmonary disease, unspecified COPD type J44.9 ; Oxygen desaturation during sleep G47.34 ; Sleep apnea in adult G47.33 and Supplemental oxygen dependent Z99.[address] [place] [address] May, Type 2 diabetes mellitus with other [...] legs R60.0 and Supplemental oxygen dependent Z99.81 [facility] [id number] [place] [address] May, [facility] [id number] [place] [address] May, Essential hypertension I10 and Gastroesophageal reflux disease without esophagitis K21.9 [facility] [address] [address] May, [facility] [facility] [address] [address] May, Type 2 diabetes mellitus with other diabetic kidney complication E11.29 and prison current use of anticoagulant Z79.01 [facility] [id number] [place] [address] Apr, Chronic pain syndrome G89.4 and Essential hypertension I10 [facility] [id number] [place] [address] Apr, Type 2 diabetes mellitus with other diabetic kidney complication E11.29 [facility] [id number] [place] [address] Apr, Type 2 diabetes mellitus with other diabetic kidney complication E11.29 [facility] [id number] [place] [address] Apr, Essential hypertension I10 [facility] [id number] [place] [address] Apr, Gastroesophageal reflux disease without esophagitis K21.9 [facility] [id number] [place] [address] Apr, Type 2 diabetes mellitus with other diabetic kidney complication E11.29 [facility] [id number] [place] [address] Apr, Type 2 diabetes mellitus with other diabetic kidney complication E11.29 and 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 [facility] [address], [place] [address] 27 Mar, 2017 Encounter for immunization Z23 and Preoperative examination Z01.818 [facility] [id number] [place] [address] Mar, [facility] [id number] [place] [address] Mar, Type 2 diabetes mellitus with other diabetic kidney complication E11.29 [facility] [id number] [place] [address] 08 Mar, 2017 Type 2 diabetes mellitus with other diabetic kidney complication E11.29 [facility] [id number] [place] [address] Mar, Gastroesophageal reflux disease without esophagitis K21.9 [facility] [id number] [place] [address] Mar, Essential hypertension I10 [facility] [id number] [place] [address] Feb, 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 [facility] [id number] [place] [address] Feb, Type 2 diabetes mellitus with other diabetic kidney complication E11.29 [facility] [id number] [place] [address] Feb, Type 2 diabetes mellitus with other diabetic kidney complication E11.29 [facility] [id number] [place] [address] Feb, Type 2 diabetes mellitus with other diabetic kidney complication E11.29 [facility] [id number] [place] [address] Feb, Gastroesophageal reflux disease without esophagitis K21.9 [facility] [id number] [place] [address] 03 Aug, 2017 Type 2 diabetes mellitus with other diabetic kidney complication E11.29 [facility] [address], [place] [address] Feb, prison current use of anticoagulant Z79.01 [facility] [address], [place] [address] Jan, Type 2 diabetes mellitus with other diabetic kidney complication E11.29 [facility] [id number] [place] [address] Jan, Type 2 diabetes mellitus with other diabetic kidney complication E11.29 [facility] [address], [place] [address] Jan, Chronic pain syndrome G89.4 [facility] [id number], [place] [address] Jan, [facility] [id number] [place] [address] Jan, [facility] [address], [place] [address] Jan, [facility] [id number] [place] [address] Jan, [facility] [address], [place] [address] Jan, Primary insomnia F51.01 ; Type 2 diabetes mellitus with other diabetic kidney complication E11.29 ; Chronic pain syndrome G89.4 and Essential hypertension I10 [facility] [address], [place] [address] Jan, Primary insomnia F51.01 [facility] [id number] [place] [address] Jan, Type 2 diabetes mellitus with other diabetic kidney complication E11.29 [facility] [address], [place] [address] Jan, [facility] [address] [place] [address] Jan, 2017 Chronic obstructive pulmonary disease, unspecified COPD type J44.9 [facility] [id number] [place] [address] Jan, Essential hypertension I10 ; Type 2 diabetes mellitus with other diabetic kidney complication E11.29 ; Chronic obstructive pulmonary disease, unspecified COPD type J44.9 ; Chronic kidney disease, stage 4 (severe) N18.4 ; Right carpal tunnel syndrome G56.01 ; 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 ; termite 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 helper (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 and Diabetic polyneuropathy associated with type 2 diabetes mellitus E11.42 [facility] [id number] [place] [address] Jan, Gastroesophageal reflux disease without esophagitis K21.9 [facility] [id number] [place] [address] Dec, [facility] [id number] [place] [address] Dec, [facility] [id number] [place] [address] Dec, 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 ; Chronic pain syndrome G89.4 and Essential hypertension I10 [facility] [address], [place] [address] Dec, [facility] [id number] [place] [address] Dec, Type 2 diabetes mellitus with other diabetic kidney complication E11.29 [facility] [id number], [place] [address] Dec, [facility] [id number] [place] [address] Dec, Gastroesophageal reflux disease without esophagitis K21.9 [facility] [id number] [place] [address] 24 May, 2017 Type 2 diabetes mellitus with other diabetic kidney complication E11.29 [facility] [address], [place] [address] November, [facility] [address] [place] [address] November, Type 2 diabetes mellitus with other diabetic kidney complication E11.29 [facility] [address] [place] [address] November, [facility] [address] [place] [address] November, Type 2 diabetes mellitus with other diabetic kidney complication E11.29 [facility] [id number] [place] [address] November, [facility] [id number] [place] [address] Oct, Essential hypertension I10 [facility] [id number] [place] [address] Oct, Psoriasis of scalp L40.9 [facility] [id number] [place] [address] Oct, Essential hypertension I10 and Chronic pain syndrome G89.4 [facility] [address] [place] [address] Oct, [facility] [address] [place] [address] Sep, Type 2 diabetes mellitus with other diabetic kidney complication E11.29 [facility] [address], [place] [address] Sep, [facility] [id number] [place] [address] Sep, Type 2 diabetes mellitus with other diabetic kidney complication E11.29 [facility] [address], [place] [address] Sep, Type 2 diabetes mellitus with other diabetic kidney complication E11.29 [facility] [id number] [place] [address] 09 Sep, 2017 Type 2 diabetes mellitus [...] extremity R20.2 and Psoriasis of scalp L40.9 [facility] [id number] [place] [address] Sep, [address] [address] Aug, Essential hypertension I10 [facility] [facility] [address] [address] Aug, History of DVT (deep vein thrombosis) Z86.718 [facility] [facility] [id number] [place] [address] Aug, [facility] [id number] [place] [address] Jul, [facility] [id number] [place] [address] Jul, [facility] [id number] [place] [address] Jul, 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 ; Chronic pain syndrome G89.4 and Chronic kidney disease, stage 4 (severe) N18.4 [facility] [facility] [id number] [place] [address] Jul, [facility] [facility] [address] [address] Jul, [facility] [address], [place] [address] Jul, [facility] [address] [place] [address] Jul, [facility] [address], [place] [address] Jul, [facility] [id number] [place] [address] Jul, Type 2 diabetes mellitus with other diabetic kidney complication E11.29 [facility] [id number] [place] [address] Jul, History of DVT (deep vein thrombosis) Z86.718 [facility] [address] [place] [address] Jun, [facility] [id number] [place] [address] Jun, History of DVT (deep vein thrombosis) Z86.718 [id number] [place] [address] 15 Jun, 2016 Post traumatic stress disorder (PTSD) F43.10 [address], [place] [address] 07 Jun, 2016 Type 2 diabetes mellitus with other diabetic kidney complication E11.29 ; Diabetic polyneuropathy associated with type 2 diabetes mellitus E11.42 ; Iron deficiency anemia due to chronic blood loss D50.0 ; Chronic obstructive pulmonary disease, unspecified COPD type J44.9 ; 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 [...] pain M79.641 and Right wrist pain M25.531 [facility] [id number] [place] [address] May, [facility] [id number] [place] [address] May, [facility] [address] [address] May, [facility] [id number] [place] [address] May, [facility] [id number] [place] [address] May, Anemia in other chronic diseases classified elsewhere D63.8 [facility] [address] [address] May, [facility] [id number] [place] [address] Apr, [facility] [id number] [place] [address] 27 Mar, 2016 Dermatofibroma D23.9 [facility] [id number] [place] [address] 20 Mar, 2016 [facility] [id number] [place] [address] 14 Mar, 2016 Chronic pain syndrome G89.4 [facility] [id number] [place] [address] 09 Mar, 2016 [facility] [id number] [place] [address] 07 Mar, 2016 [facility] [id number] [place] [address] 06 Mar, 2016 [facility] [address] [place] [address] Feb, [facility] [address], [place] [address] Feb, [facility] [address], [place] [address] Feb, [facility] [address] [place] [address] Feb, [facility] [id number] [place] [address] Feb, [facility] [id number] [place] [address] Feb, [facility] [id number] [place] [address] Feb, Type 2 diabetes mellitus with other [...] Renal failure, chronic, stage 4 (severe) N18.4 [facility] [address] [address] Feb, Skin tags, multiple acquired L91.8 [facility] [id number] [place] [address] Jan, [facility] [address] [place] [id number] Jan, Dental examination Z01.20 [facility] [id number] [place] [address] Jan, [facility] [id number] [place] [address] Jan, Type 2 diabetes mellitus with other diabetic kidney complication E11.29 ; Diabetic polyneuropathy associated with type 2 diabetes mellitus E11.42 ; Iron deficiency anemia due to chronic blood loss D50.0 ; Chronic obstructive pulmonary disease, unspecified COPD type J44.9 ; 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 [...] Renal failure, chronic, stage 4 (severe) N18.4 [place] [id number] [place] [address] Dec, Diabetes type 2, uncontrolled E11.65 [facility] [facility] [id number] [place] [address] Dec, [place] [id number] [place] [address] Dec, Type 2 diabetes mellitus with other diabetic kidney complication E11.29 ; Diabetic polyneuropathy associated with type 2 diabetes mellitus E11.42 ; Iron deficiency anemia due to chronic blood loss D50.0 ; Chronic obstructive pulmonary disease, unspecified COPD type J44.9 ; 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 ; History of DVT (deep vein thrombosis) Z86.718 ; Chronic pain syndrome G89.4 ; Oxygen desaturation during sleep G47.34 ; Sleep apnea in adult G47.33 ; Gastroesophageal reflux disease without esophagitis K21.9 ; Essential hypertension I10 ; Primary insomnia F51.01 and Depression, unspecified depression type F32.9 [facility] [address] [id number] [id number] Dec, Dental caries K02.9 [facility] [id number] [place], [place] [address] [id number] Dec, [facility] [address] [id number] [place] [id number] Dec, Dental examination Z01.20 [facility] [address] [id number] [id number] November, Dental examination Z01.20 and Dental caries K02.9 [facility] [address] [id number], [place] [id number] Oct, [facility] [id number] [place] [address] [id number] Oct, [facility] [address] [id number] [place] [address] [id number] Sep, [facility] [address] [id number] [place] [address] [id number] Sep, [facility] [address] [id number] [place] [address] [id number] Sep, [facility] [address] [id number] [place] [address] [id number] Sep, Other chronic pain 338.29 [facility] [address] [id number] [place] [address] [id number] Aug, Diabetes type 2, uncontrolled E11.65 and Morbid obesity due to excess calories E66.01 [facility] [id number] [place] [address] [id number] Aug, Hair loss L65.9 [facility] [address] [id number], [place] [id number] Aug, [facility] [address] [id number] [place] [address] [id number] Jul, [facility] [address] [id number], [place] [id number] Jul, [facility] [address] [id number] [place] [address] [id number] Jun, [facility] [address] [id number] [place] [address] [id number] Jun, Hair loss L65.9 and Disorder of the skin and subcutaneous tissue, unspecified L98.9 [facility] [id number] [place] [address] [id number] May, Type 2 diabetes mellitus with other diabetic kidney complication E11.29 ; Type 2 diabetes mellitus with hyperglycemia E11.65 ; Morbid obesity due to excess calories E66.01 and Essential hypertension I10 [facility] [id number] [place] [address] [id number] May, Diabetes type 2, uncontrolled E11.65 ; Encounter for immunization Z23 and Morbid obesity due to excess calories E66.01 [facility] [id number] [place] [address] [id number] May, [facility] [address] [address] Apr, [address] [id number] Apr, Hyperglycemia R73.[address] [id number] Apr, [address] [id number] Apr, Depression F32.9 ; Encounter for immunization Z23 ; Hyperglycemia R73.9 and Anemia in other chronic diseases classified elsewhere D63.8 [facility] [id number] [place] [address] [id number] Mar, [id number] [place] [address] [id number] Feb, Positive occult stool blood test 792.1 [id number] [place] [address] [id number] Feb, Depression 311 ; Other chronic pain 338.29 and Diabetes with renal manifestations, type II or unspecified type, not stated as uncontrolled 250.40 [facility] [id number] [place] [address] Feb, Occult blood in stools 792.1 [id number] [place] [address] [id number] Feb, Anemia 285.9 ; Occult blood positive stool 792.1 ; Unspecified essential hypertension 401.9 and Other chronic pain 338.29 [facility] [id number], [place] [id number] Feb, [facility] [id number] [place] [address] [id number] Feb, Anemia 285.9 [facility] [id number] [place] [address] [id number] Feb, [facility] [id number] [place] [address] [id number] Feb, [facility] [id number] [place] [address] [id number] Feb, Diabetes with renal manifestations, type II or unspecified type, not stated as uncontrolled 250.40 ; Other chronic pain 338.29 ; Unspecified essential hypertension 401.9 ; Anemia 285.9 and Depression 311 [facility] [id number] [place] [address] [id number] Jan, [facility] [id number] [place] [address] [id number] Jan, Anemia 285.9 and Follow up V67.9 [facility] [id number] [place] [address] [id number] Jan, [facility] [id number] [place] [address] [id number] Jan, [facility] [id number] [place] [address] [id number] Jan, [facility] [id number] [place] [address] [id number] Dec, [facility] [id number] [place] [address] Oct, [facility] [id number] [place] [address] Oct, [facility] [id number] [place] [address] Sep, [facility] [address] [id number], [place] [id number] Sep, [facility] [id number] [place] [address] Sep, [facility] [place] [address] [id number] [place] [id number] Aug, [facility] [place] [facility] [address] [facility] [id number], [place] [address] Aug, [facility] [place] [facility] [address] [facility] [id number] [place] [address] Aug, [facility] [place] [address] [id number], [place] [id number] Aug, [facility] [place] [facility] [address] [facility] [id number] [place] [address] Aug, [facility] [place] [facility] [address] [facility] [id number][place] [address] Aug, [facility] [place] [address] [facility] [id number], [place] [id number] Aug, [facility] [place] [facility] [address]00565100[place], [place] [address] Aug, [facility] [place] [address] [facility] [id number], [place] [id number] Jul, [facility] [place] [facility] [address]00565100[place], [place] [address] Jul, [facility] [place] [facility] [address] [facility] [id number][place] [address] Jul, [facility] [place] [address] [facility] [id number], [place] [id number] Jul, [facility] [place] [facility] [address] [facility] [id number], [place] [address] Jul, [facility] [place] [address] [facility] [id number], [place] [id number] Jul, [facility] [place] [facility] [address] [facility] [id number][place] [address] Jul, [facility] [place] [address] [id number], [place] [id number] Jun, [facility] [place] [address] [facility] [id number], [place] [id number] Jun, [facility] [place] [facility] [address] [facility] [id number][place] [address] Jun, [facility] [place] [facility] [address] [facility] [id number][place] [address] Jun, [facility] [place] [address] [facility] [id number], [place] [id number] Jun, [facility] [place] [facility] [address] [facility] [id number][place] [address] Jun, [facility] [place] [address] [facility] [id number], [place] [id number] May, [facility] [place] [facility] [address] [facility] [id number][place] [address] May, [facility] [place] [facility] [address]00565100[place] [address] May, [facility] [place] [address] [facility] [id number], [place] [id number] Apr, [facility] [place] [facility] [address] [facility] [id number][place] [address] Apr, [facility] [place] [address] [facility] [id number], [place] [id number] Apr, [facility] [place] [address] [facility] [id number], [place] [id number] Apr, [facility] [place] [facility] [address] [facility] [id number], [place] [address] Apr, [facility] [place] [facility] [address] [facility] [id number], [place] [address] Apr, [facility] [place] [address] [facility] [id number], [place] [id number] Mar, [facility] [place] [facility] [address] [facility] [id number][place] [address] Mar, [facility] [place] [address] [facility] [id number], [place] [id number] Mar, [facility] [place] [facility] [address] [id number], [place] [address] Mar, [facility] [place] [address] [id number] [place] [id number] Mar, [facility] [place] [facility] [address] [facility] [id number] [place] [address] Mar, [facility] [place] [address] [id number] [place] [id number] Mar, [facility] [place] [facility] [address] [facility] [id number] [place] [address] Mar, [facility] [place] [address] [id number] [place] [id number] Mar, [facility] [place] [facility] [address] [facility] [id number][place] [address] Mar, [facility] [place] [address] [facility] [id number], [place] [id number] Feb, [facility] [place] [facility] [address] [facility] [id number][place] [address] Feb, [facility] [place] [address] [facility] [id number], [place] [id number] Jan, [facility] [place] [facility] [address] [facility] [id number][place] [address] Jan, [facility] [place] [address] [facility] [id number], [place] [id number] Jan, [facility] [place] [facility] [address] [facility] [id number], [place] [address] Jan, [facility] [place] [address] [facility] [id number], [place] [id number] Jan, [facility] [place] [facility] [address] [facility] [id number] [place] [address] Jan, [facility] [place] [facility] [address] [facility] [id number], [place] [address] Dec, [facility] [place] [facility] [address] [facility] [id number], [place] [address] Dec, [facility] [address] [id number] [place] [id number] November, [facility] [place] [facility] [address] [id number] [place] [address] November, [facility] [address] [id number] [place] [id number] November, [facility] [place] [facility] [address] [id number] [place] [address] November, [facility] [place] [address] [id number] [place] [id number] Oct, [facility] [place] [facility] [address] [id number] [place] [address] Oct, [facility] [place] [facility] [address] [facility] [id number] [place] [address] Oct, [facility] [place] [facility] [address] [facility] [id number] [place] [address] Oct, [facility] [place] [facility] [address] [facility] [id number][place] [address] Oct, [facility] [place] [facility] [address] [facility] [id number] [place] [address] Oct, [facility] [place] [address] [id number], [place] [id number] Sep, [facility] [place] [address] [id number], [place] [id number] Sep, [facility] [place] [facility] [address] [id number], [place] [address] Sep, [facility] [place] [facility] [address] [id number] [place] [address] Sep, [facility] [place] [address] [id number] [place] [id number] Sep, [facility] [place] [facility] [address] [facility] [id number] [place] [address] Sep, [facility] [place] [facility] [address] [id number] [address] Aug, [facility] [place] [facility] [address] [facility] [id number], [place] [address] Aug, [facility] [place] [address] [facility] [id number], [place] [id number] Aug, [facility] [place] [address] [facility] [id number] [place] [id number] Aug, [facility] [place] [facility] [address] [facility] [id number][place] [address] Aug, [facility] [place] [address] [facility] [id number] [place] [id number] Aug, [facility] [place] [facility] [address]00565100[place], [place] [address] Aug, [facility] [place] [id number], [place] [id number] Aug, [facility] [place] [facility] [address]00565100[place], [place] [address] Aug, [facility] [place] [address] [id number], [place] [id number] Aug, [facility] [place] [facility] [address]00565100[place], [place] [address] Aug, [facility] [place] [address] [id number], [place] [id number] Aug, [facility] [place] [facility] [address]00565100[place], [place] [address] Aug, [facility] [place] [facility] [address] [id number] [address] Jul, [facility] [place] [address] [facility] [id number], [place] [id number] Jun, [facility] [place] [facility] [address] [id number] [address] Jun, [facility] [place] [facility] [address]00565100[place], [place] [address] Jun, [facility] [place] [facility] [address] [id number] [place] [address] Jun, [facility] [place] [address] [id number], [place] [id number] Jun, [facility] [place] [facility] [address] [facility] [id number] [place] [address] Jun, [facility] [place] [facility] [address] [id number] [place] [address] Jun, [facility] [place] [address] [facility] [id number] [place] [id number] Jun, [facility] [place] [facility] [address] [id number], [place] [address] Jun, [facility] [place] [facility] [address] [facility] [id number], [place] [address] May, [facility] [place] [address] [id number], [place] [id number] May, [facility] [place] [facility] [address] [facility] [id number], [place] [address] May, [facility] [place] [facility] [address] [facility] [id number][place] [address] May, [facility] [place] [facility] [address] [facility] [id number][place] [address] May, [facility] [place] [facility] [address] [facility] [id number], [place] [address] May, [facility] [place] [address] [facility] [id number], [place] [id number] May, [facility] [place] [facility] [address] [facility] [id number], [place] [address] May, [facility] [address] [facility] [id number], [place] [id number] May, [facility] [place] [facility] [address] [facility] [id number], [place] [address] May, [facility] [place] [address] [facility] [id number], [place] [id number] Apr, [facility] [place] [facility] [address] [facility] [id number], [place] [address] Apr, [facility] [place] [facility] [address] [facility] [id number][place] [address] Apr, [facility] [address] [facility] [id number], [place] 528789334 Apr, [facility] [place] [facility] [address] [facility] [id number][place] [address] Apr, [facility] [place] [facility] [address] [facility] [id number], [place] [address] Apr, [facility] [place] [id number], [place] 833695911 Apr, [facility] [place] [facility] [address]00565100[place], [place] [address] Apr, [facility] [place] [facility] [address]00565100[place], [place] [address] Apr, [facility] [place] [facility] [address]00565100[place], [place] [address] Apr, [facility] [place] [address]00565100[place], [place] [id number] Apr, [facility] [place] [facility] [address] [facility] [id number][place] [address] Apr, [facility] [address] [facility] [id number], [place] [id number] Apr, [facility] [place] [facility] [address] [facility] [id number][place] [address] Apr, [facility] [address] [facility] [id number], [place] 620486469 Apr, [facility] [place] [facility] [address] [facility] [id number], [place] [address] Apr, [facility] [place] [facility] [address] [facility] [id number][place] [address] Apr, [facility] [address] [facility] [id number][place] [address] Apr, [facility] [place] [address] [id number] [place] [id number] Apr, [facility] [address] [facility] [id number][place] [address] Mar, [facility] [address] [facility] [id number], [place] [address] Mar, [facility] [place] [address] [id number] [place] [id number] Mar, [facility] [place] [address] [id number] [place] [id number] Mar, [facility] [place] [address] [id number] [place] [id number] Mar, [facility] [place] [address] [id number] [place] [id number] Feb, [facility] [place] [address] [id number] [place] [id number] Feb, [facility] [place] [address] [id number] [place] [id number] Feb, [facility] [address] [facility] [id number] [address] Feb, [facility] [place] [address] [id number] [place] [id number] Feb, [facility] [place] [address] [id number] [place] [id number] Feb, [facility] [address] [id number] [place] 600659092 Feb, [facility] [address] [id number] [place] [id number] Feb, [facility] [place] [address] [id number] [place] 635234569 Feb, [facility] [place] [address] [id number] [place] [id number] Jan, [facility] [place] [address] [id number] [place] 213403055 Jan, [facility] [place] [address] [id number] [place] 489860355 Jan, [facility] [place] [address] [id number] [place] 121717907 Jan, [facility] [place] [address] [id number] [place] [id number] Jan, [facility] [address] [place] [address] Jan, [facility] [place] [address] [id number] [place] [id number] Jan, [facility] [place] [address] [id number] [place] 125859942 Jan, [facility] [place] [address] [id number] [place] [id number] Dec, [facility] [place] [address] [id number] [place] [id number] November, [facility] [place] [address] [id number] [place] 613965768 November, [facility] [place] [address] [id number] [place] [id number] November, [facility] [place] [address] [id number] [place] [id number] November, [facility] [place] [address] [id number] [place] [id number] November, [facility] [place] [address] [id number] [place] [id number] November, [facility] [place] [address] [id number] [place] [id number] Jul, [facility] [place] [address] [id number] [place] [id number] Jul, [facility] [place] [address] [id number] [place] [id number] Jul, [facility] [place] [address] [id number] [place] [id number] Jun, [facility] [address]00565100[place], [place] [address] Jun, [facility] [place] [address] [id number], [place] [id number] May, [facility] [place] [facility] [address] [facility] [id number][place] [address] May, [facility] [place] [address] [id number], [place] 055819326 May, [facility] [place] [facility] [address] [facility] [id number][place] [address] May, [facility] [place] [address] [id number], [place] 730463271 May, [facility] [place] [facility] [address] [facility] [id number][place] [address] May, [facility] [place] [address] [id number][place] [id number] Apr, [facility] [place] [facility] [id number] [address] Apr, [facility] [place] [facility] [address] [facility] [id number], [place] [address] Apr, [facility] [place] [address] [id number][place] [id number] Apr, [facility] [place] [address] [id number][place] [id number] Apr, [facility] [place] [facility] [id number], [place] [address] Apr, [facility] [place] [facility] [address] [facility] [id number], [place] [address] Apr, [facility] [place] [address] [id number], [place] [id number] Apr, [facility] [place] [facility] [address] [facility] [id number] [address] Apr, [facility] [place] [address] [id number][place] [id number] Apr, [facility] [place] [id number] [place] [address] [place] [id number] Apr, [facility] [place] [address] [id number] [place] [id number] Mar, [facility] [place] [address] [id number] [place] [id number] Feb, [facility] [place] [address] [id number] [place] [id number] Jan, [facility] [place] [address] [id number] [place] [id number] Dec, [facility] [place] [address] [id number] [place] [id number] Dec, [facility] [place] [address] [id number] [place] [id number] Dec, [facility] [place] [address] [id number] [place] [id number] Dec, [facility] [place] [address] [id number] [place] [id number] Dec, [facility] [place] [address] [id number] [place] [id number] November, [facility] [place] [address] [id number] [place] [id number] November, [facility] [place] [address] [id number] [place] [id number] November, [facility] [address] [facility] [id number], [place] [address] November, [facility] [place] [address] [id number] [place] [id number] November, [facility] [place] [address] [id number] [place] [id number] November, [facility] [place] [address] [id number] [place] [id number] Oct, [facility] [place] [address] [id number] [place] [id number] Oct, [facility] [place] [address] [id number] [place] [id number] Oct, [facility] [place] [address] [id number] [place] [id number] Oct, [facility] [place] [address] [id number] [place] [id number] Oct, [facility] [place] [address] [id number] [place] [id number] Oct, [facility] [place] [address] [id number] [place] [id number] Sep, [facility] [place] [address] [id number] [place] [id number] Aug, [facility] [place] [address] [id number] [place] [id number] Aug, [facility] [place] [address] [id number] [place] [id number] Jul, [facility] [place] [facility] [address] [facility] [id number], [place] [address] Jun, [facility] [place] [facility] [address] [id number] [address] Jun, [facility] [place] [facility] [id number], [place] [address] Jun, [facility] [place] [facility] [id number], [place] [address] Jun, [facility] [place] [facility] [id number], [place] [address] May, [facility] [place] [facility] [id number], [place] [address] May, [facility] [place] [facility] [id number], [place] [address] Apr, [facility] [place] [facility] [address] [id number] [address] Apr, [facility] [place] [facility] [id number], [place] [address] Apr, [facility] [place] [facility] [id number], [place] [address] Feb, [facility] [place] [facility] [id number] [place] [address] 15 Aug, 2010 [facility] [place] [address] [id number] [place] [address] 18 Jul, 2010 [facility] [place] [facility] [address] [id number] [place] [address] 30 Jun, 2010 [facility] [address] [id number] [place] [address] 29 May, 2010 [facility] [place] [facility] [address] [id number] [place] [address] May, [facility] [address] [id number] [place] [address], [place] [address] May, [facility] [address] [facility] [id number] [place] [address] May, [facility] [address] [facility] [id number] [place] [address] May, [facility] [address] [id number] [place] [address] 16 Aug, 2009 [facility] [address] [facility] [id number] [place] [address] Jun, [facility] [address] [facility] [id number] [place] [address] Jun, [facility] [place] [facility] [address] [facility] [id number] [place] [address] Jun, [facility] [address] [id number] [address] 24 May, 2009 [facility] [place] [facility] [address] [id number] [place] [address] 28 Apr, 2009 [facility] [place] [facility] [address] [facility] [id number] [place] [address] Apr, [facility] [address] [facility] [id number], [place] [address] Apr, [facility] [address] [facility] [id number], [place] [address] Jan, [facility] [address] [facility] [id number] [address] Oct, [facility] [address] [facility] [id number] [address] May, [facility] [address] [facility] [id number] [address] May, IMMUNIZATIONS No Known Immunizations SOCIAL HISTORY Never Assessed REASON FOR VISIT continued fever PLAN OF CARE VITAL SIGNS MEDICATIONS Medication Instructions Dosage Frequency Start Date End Date Duration Status Milk of Magnesia Concentrate 2400 MG/10ML Orally Once a day 30 ml as needed 24h Jan, 30 day(s) Active Ciprofloxacin HCl 500 MG Orally every 12 hrs 1 tablet 12h Jan, Feb, 10 day(s) Active RESULTS No Results PROCEDURES No [...] Ruthy Reveles 2012 -Dr. Simon now [facility] Medical History Colonoscopy (polyps 2 ) [...]
--- OUTSIDE RECORDS SUMMARY | 2018-12-28 17:58 | XMS REPORT ---
Author Author ASYA SNOW [facility] Address [address] [place] [address] Care Team Providers Care Salesperson [employer] Name Role Phone ASYA SNOW Unavailable PROBLEMS Type Condition ICD9-CM Code QUS49-EO Code Onset Dates Condition Status SNOMED Code Problem Chronic kidney disease, stage 4 (severe) N18.4 Active 005798662 Problem Psoriasis of scalp L40.9 Active 635170844 Problem Type 2 diabetes mellitus with hyperglycemia E11.65 Active 695318795227544 Problem Fibromyalgia M79.7 Active 207524644 Problem History of DVT (deep vein thrombosis) Z86.718 Active 951211397 Problem Carpal tunnel syndrome, bilateral G56.03 Active [id number] Problem Type 2 diabetes mellitus with other diabetic kidney complication E11.29 Active 178643900 Problem Anemia in other chronic diseases classified elsewhere D63.8 Active 351864631 Problem 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 Active 325701737 Problem Paresthesia of right upper extremity R20.2 Active 78974328 Problem Bilateral lower extremity edema R60.0 Active 722280871 Problem Supplemental oxygen dependent Z99.81 Active 551191185293 Problem Sleep apnea in adult G47.33 Active 76052525 Problem Chronic pain syndrome G89.4 Active 799394612 Problem senior care current use of anticoagulant Z79.01 Active 825196847 Problem Essential hypertension I10 Active 17345873 Problem Gastroesophageal reflux disease without esophagitis K21.9 Active 570704177 Problem Chronic obstructive pulmonary disease, unspecified COPD type J44.9 Active 32460594 Problem 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 Active 271586639446136 Problem Primary insomnia F51.01 Active 3046152 Problem Oxygen desaturation during sleep G47.34 Active 207045148 Problem Right carpal tunnel syndrome G56.01 Active 542131259679371 Problem Diabetic polyneuropathy associated with type 2 diabetes mellitus E11.42 Active 54738368 Problem Depression, unspecified depression type F32.9 Active 87355185 ALLERGIES No Information ENCOUNTERS Encounter Location Date Diagnosis [facility] [address], [place] [address] Feb, [facility] [address], [place] [address] Feb, [facility] [address], [place] [address] Jan, [facility] [address], [place] [address] Jan, [facility] [address], [place] [address] Jan, [address] [id number] Jan, [facility] [address], [place] [address] Jan, [facility] [address], [place] [address] Jan, [facility] [address], [place] [address] Jan, Essential hypertension I10 [facility] [address], [place] [address] Jan, Chronic obstructive pulmonary disease, unspecified COPD type J44.9 [facility] [address], [place] [address] Jan, [facility] [address], [place] [address] Jan, [facility] [address], [place] [address] Jan, Type 2 diabetes mellitus with other diabetic kidney complication E11.29 ; Anemia in other chronic diseases classified elsewhere D63.8 ; Chronic obstructive pulmonary disease, unspecified COPD type J44.9 and BMI 60.0-69.9, adult Z68.44 [facility] [address], [place] [address] Jan, [facility] [id number] [place] [address] Jan, [facility] [id number] [id number] Jan, [facility] [id number] [place] [id number] Dec, [facility] [id number] [place] [id number] Dec, [facility] [id number] [place] [id number] Dec, Essential hypertension I10 ; Type 2 diabetes mellitus with other diabetic kidney complication E11.29 ; Depression, unspecified depression type F32.9 ; Supplemental oxygen dependent Z99.81 ; Chronic pain syndrome G89.4 ; Fibromyalgia M79.7 ; Carpal tunnel syndrome, bilateral G56.03 and Chronic kidney disease, stage 4 (severe) N18.4 [facility] [id number] [place] [address] Dec, Essential hypertension I10 [facility] [id number] [place] [address] November, Type 2 diabetes mellitus with other diabetic kidney complication E11.29 [facility] [address], [place] [address] November, Chronic pain syndrome G89.4 [facility] [address], [place] [address] November, [facility] [id number] [place] [address] November, [facility] [id number] [place] [address] November, [facility] [address], [place] [address] Oct, Type 2 diabetes mellitus with other diabetic kidney complication E11.29 [facility] [address], [place] [address] Oct, Primary insomnia F51.01 [address] [id number] [id number] Oct, Bilateral lower extremity edema R60.0 [facility] [address] [place] [address] Oct, [place] [id number] [place] [address] Sep, Type 2 diabetes mellitus with other diabetic kidney complication E11.29 and Chronic obstructive pulmonary disease, unspecified COPD type J44.9 [place] [address] [place] [address] 15 Aug, 2017 Type 2 diabetes mellitus with other diabetic kidney complication E11.29 [address] [place] [address] 12 Aug, 2017 Gastroesophageal reflux disease without esophagitis K21.9 ; 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 ; Chronic pain syndrome G89.4 ; Essential hypertension I10 and Type 2 diabetes mellitus with other diabetic kidney complication E11.29 [place] [address], [place] [address] 08 Aug, 2017 Chronic pain syndrome G89.4 [place] [address] [place] [address] Aug, Type 2 diabetes mellitus with other diabetic kidney complication E11.29 [place] [address], [place] [address] Jul, Diabetic polyneuropathy associated with type 2 diabetes mellitus E11.42 [place] [address] [place] [address] Jul, Primary insomnia F51.01 [facility] [address], [place] [address] Jul, [place] [address], [place] [address] Jul, Type 2 diabetes mellitus with other diabetic kidney complication E11.29 and Chronic obstructive pulmonary disease, unspecified COPD type J44.9 [place] [address] [place] [address] Jul, Type 2 diabetes mellitus with other diabetic kidney complication E11.29 [place] [id number] [place] [address] Jun, Type 2 diabetes mellitus with other diabetic kidney complication E11.29 [place] [id number] [place] [address] 27 Jun, 2017 [place] [id number] [place] [address] Jun, Chronic obstructive pulmonary disease, unspecified COPD type J44.9 [place] [id number] [place] [address] May, Type 2 diabetes mellitus with other diabetic kidney complication E11.29 [place] [id number] [place] [address] May, 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 and Essential hypertension I10 [address] [place] [address] May, Anemia in other chronic diseases classified elsewhere D63.8 ; Chronic obstructive pulmonary disease, unspecified COPD type J44.9 ; Oxygen desaturation during sleep G47.34 ; Sleep apnea in adult G47.33 and Supplemental oxygen dependent Z99.81 [address] [place] [address] May, Type 2 diabetes mellitus with other diabetic kidney complication E11.29 ; Essential hypertension I10 ; Chronic pain syndrome G89.4 ; BMI 40.0- 44.9, adult Z68.41 ; Gastroesophageal reflux disease without esophagitis K21.9 ; senior care current use of anticoagulant Z79.01 ; senior care 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 ; Diabetic polyneuropathy associated with type 2 diabetes mellitus E11.42 ; Edema of both legs R60.0 and Supplemental oxygen dependent Z99.81 [place] [id number] [place] [address] May, [place] [id number] [place] [address] May, Essential hypertension I10 and Gastroesophageal reflux disease without esophagitis K21.9 [place] [address] [address] May, [place] [address] [address] May, Type 2 diabetes mellitus with other diabetic kidney complication E11.29 and senior care current use of anticoagulant Z79.01 [place] [id number] [place] [address] Apr, Chronic pain syndrome G89.4 and Essential hypertension I10 [place] [id number] [place] [address] Apr, Type 2 diabetes mellitus with other diabetic kidney complication E11.29 [place] [id number] [place] [address] Apr, Type 2 diabetes mellitus with other diabetic kidney complication E11.29 [place] [id number] [place] [address] Apr, Essential hypertension I10 [place] [id number] [place] [address] Apr, Gastroesophageal reflux disease without esophagitis K21.9 [place] [id number] [place] [address] Apr, Type 2 diabetes mellitus with other diabetic kidney complication E11.29 [place] [id number] [place] [address] Apr, Type 2 diabetes mellitus with other diabetic kidney complication E11.29 and 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 [facility] [address], [place] [address] 27 Mar, 2017 Encounter for immunization Z23 and Preoperative examination Z01.818 [facility] [id number] [place] [address] Mar, [facility] [id number] [place] [address] Mar, Type 2 diabetes mellitus with other diabetic kidney complication E11.29 [place] [id number] [place] [address] 08 Mar, 2017 Type 2 diabetes mellitus with other diabetic kidney complication E11.29 [place] [id number] [place] [address] Mar, Gastroesophageal reflux disease without esophagitis K21.9 [place] [id number] [place] [address] Mar, Essential hypertension I10 [place] [id number] [place] [address] Feb, 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 [facility] [id number] [place] [address] Feb, Type 2 diabetes mellitus with other diabetic kidney complication E11.29 [facility] [id number] [place] [address] Feb, Type 2 diabetes mellitus with other diabetic kidney complication E11.29 [facility] [id number] [place] [address] Feb, Type 2 diabetes mellitus with other diabetic kidney complication E11.29 [place] [id number] [place] [address] Feb, Gastroesophageal reflux disease without esophagitis K21.9 [facility] [id number] [place] [address] 03 Aug, 2017 Type 2 diabetes mellitus with other diabetic kidney complication E11.29 [facility] [address], [place] [address] Feb, senior care current use of anticoagulant Z79.01 [facility] [address], [place] [address] Jan, Type 2 diabetes mellitus with other diabetic kidney complication E11.29 [facility] [id number] [place] [address] Jan, Type 2 diabetes mellitus with other diabetic kidney complication E11.29 [facility] [address], [place] [address] Jan, Chronic pain syndrome G89.4 [facility] [address], [place] [address] Jan, [facility] [id number] [place] [address] Jan, [facility] [address], [place] [address] Jan, [facility] [id number] [place] [address] Jan, [facility] [address], [place] [address] Jan, Primary insomnia F51.01 ; Type 2 diabetes mellitus with other diabetic kidney complication E11.29 ; Chronic pain syndrome G89.4 and Essential hypertension I10 [facility] [address], [place] [address] Jan, Primary insomnia F51.01 [facility] [id number] [place] [address] Jan, Type 2 diabetes mellitus with other diabetic kidney complication E11.29 [facility] [address], [place] [address] Jan, [facility] [id number] [place] [address] Jan, 2017 Chronic obstructive pulmonary disease, unspecified COPD type J44.9 [facility] [id number] [place] [address] Jan, Essential hypertension I10 ; Type 2 diabetes mellitus with other diabetic kidney complication E11.29 ; Chronic obstructive pulmonary disease, unspecified COPD type J44.9 ; Chronic kidney disease, stage 4 (severe) N18.4 ; Right carpal tunnel syndrome G56.01 ; 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 ; 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 terminal (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 and Diabetic polyneuropathy associated with type 2 diabetes mellitus E11.42 [place] [id number] [place] [address] Jan, Gastroesophageal reflux disease without esophagitis K21.9 [facility] [id number] [place] [address] Dec, [facility] [id number] [place] [address] Dec, [facility] [id number] [place] [address] Dec, 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 ; Chronic pain syndrome G89.4 and Essential hypertension I10 [facility] [address], [place] [address] Dec, [facility] [id number] [place] [address] Dec, Type 2 diabetes mellitus with other diabetic kidney complication E11.29 [facility] [address], [place] [address] Dec, [facility] [id number] [place] [address] Dec, Gastroesophageal reflux disease without esophagitis K21.9 [facility] [id number] [place] [address] 24 May, 2017 Type 2 diabetes mellitus with other diabetic kidney complication E11.29 [facility] [address], [place] [address] November, [facility] [address] [place] [address] November, Type 2 diabetes mellitus with other diabetic kidney complication E11.29 [facility] [address] [place] [address] November, [facility] [address] [place] [address] November, Type 2 diabetes mellitus with other diabetic kidney complication E11.29 [facility] [id number] [place] [address] November, [facility] [id number] [place] [address] Oct, Essential hypertension I10 [facility] [id number] [place] [address] Oct, Psoriasis of scalp L40.9 [facility] [id number] [place] [address] Oct, Essential hypertension I10 and Chronic pain syndrome G89.4 [facility] [address] [place] [address] Oct, [facility] [address] [place] [address] Sep, Type 2 diabetes mellitus with other diabetic kidney complication E11.29 [facility] [address], [place] [address] Sep, [facility] [id number] [place] [address] Sep, Type 2 diabetes mellitus with other diabetic kidney complication E11.29 [facility] [address], [place] [address] Sep, Type 2 diabetes mellitus with other diabetic kidney complication E11.29 [place] [id number] [place] [address] 09 Sep, 2017 Type 2 diabetes mellitus with other diabetic kidney complication E11.29 ; Chronic kidney disease, stage 4 (severe) N18.4 ; Chronic obstructive pulmonary disease, unspecified COPD type J44.9 ; Iron deficiency anemia due to chronic blood loss D50.0 ; senior care current use of anticoagulant Z79.01 ; Gastroesophageal reflux disease without esophagitis K21.9 ; Essential hypertension I10 ; Primary insomnia F51.01 ; Depression, unspecified depression type F32.9 ; Chronic pain syndrome G89.4 ; Wrist pain, right M25.531 ; Paresthesia of right upper extremity R20.2 and Psoriasis of scalp L40.9 [place] [address] [place] [address] Sep, [address] [address] Aug, Essential hypertension I10 [place] [address] [address] Aug, History of DVT (deep vein thrombosis) Z86.718 [place] [address] [place] [address] Aug, [place] [id number] [place] [address] Jul, [place] [id number] [place] [address] Jul, [place] [address] [place] [address] Jul, 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 ; Chronic pain syndrome G89.4 and Chronic kidney disease, stage 4 (severe) N18.4 [place] [id number] [place] [address] Jul, [place] [address] [address] Jul, [place] [address], [place] [address] Jul, [place] [address] [place] [address] Jul, [place] [address], [place] [address] Jul, [place] [id number] [place] [address] Jul, Type 2 diabetes mellitus with other diabetic kidney complication E11.29 [place] [id number] [place] [address] Jul, History of DVT (deep vein thrombosis) Z86.718 [place] [address] [place] [address] Jun, [place] [id number] [place] [address] Jun, History of DVT (deep vein thrombosis) Z86.718 [place] [id number] [place] [address] 15 Jun, 2016 Post traumatic stress disorder (PTSD) F43.10 [address] [place] [address] 07 Jun, 2016 Type 2 diabetes mellitus [...] pain M79.641 and Right wrist pain M25.531 [facility] [id number] [place] [address] May, [facility] [id number] [place] [address] May, [facility] [address] [address] May, [facility] [id number] [place] [address] May, [facility] [id number] [place] [address] May, Anemia in other chronic diseases classified elsewhere D63.8 [facility] [address] [address] May, [facility] [id number] [place] [address] Apr, [facility] [id number] [place] [address] 27 Mar, 2016 Dermatofibroma D23.9 [facility] [id number] [place] [address] 20 Mar, 2016 [facility] [id number] [place] [address] 14 Mar, 2016 Chronic pain syndrome G89.4 [facility] [id number] [place] [address] 09 Mar, 2016 [facility] [id number] [place] [address] 07 Mar, 2016 [facility] [id number] [place] [address] 06 Mar, 2016 [facility] [address] [place] [address] Feb, [facility] [address], [place] [address] Feb, [facility] [address], [place] [address] Feb, [facility] [id number] [place] [address] Feb, [facility] [id number] [place] [address] Feb, [facility] [id number] [place] [address] Feb, [facility] [id number] [place] [address] Feb, Type 2 diabetes mellitus with other [...] Renal failure, chronic, stage 4 (severe) N18.4 [facility] [address], [place] [address] Feb, Skin tags, multiple acquired L91.8 [facility] [id number] [place] [address] Jan, [facility] [id number] [place] [address] [id number] Jan, Dental examination Z01.20 [facility] [id number] [place] [address] Jan, [facility] [id number] [place] [address] Jan, Type 2 diabetes mellitus with other [...] Renal failure, chronic, stage 4 (severe) N18.4 [place] [id number] [place] [address] Dec, Diabetes type 2, uncontrolled E11.65 [place] [id number] [place] [address] Dec, [id number] [place] [address] Dec, Type 2 diabetes mellitus with other [...] [facility] [address] [id number] [id number] Dec, Dental caries K02.9 [facility] [id number] [place] [address] [id number] Dec, [facility] [address] [id number] [place] [id number] Dec, Dental examination Z01.20 [facility] [address] [id number], [place] [id number] November, Dental examination Z01.20 and Dental caries K02.9 [facility] [address] [id number], [place] [id number] Oct, [facility] [address] [id number] [place] [address] [id number] Oct, [facility] [address] [id number] [place] [address] [id number] Sep, [facility] [address] [id number] [place] [address] [id number] Sep, [facility] [address] [id number] [place] [address] [id number] Sep, [facility] [address] [id number] [place] [address] [id number] Sep, Other chronic pain 338.29 [facility] [address] [id number] [place] [address] [id number] Aug, Diabetes type 2, uncontrolled E11.65 and Morbid obesity due to excess calories E66.01 [facility] [address] [id number] [place] [address] [id number] Aug, Hair loss L65.9 [facility] [address] [id number], [place] [id number] Aug, [facility] [address] [id number] [place] [address] [id number] Jul, [facility] [address] [id number][place] [id number] Jul, [facility] [address] [id number] [place] [address] [id number] Jun, [facility] [address] [id number] [place] [address] [id number] Jun, Hair loss L65.9 and Disorder of the skin and subcutaneous tissue, unspecified L98.9 [facility] [id number] [place] [address] [id number] May, Type 2 diabetes mellitus with other diabetic kidney complication E11.29 ; Type 2 diabetes mellitus with hyperglycemia E11.65 ; Morbid obesity due to excess calories E66.01 and Essential hypertension I10 [facility] [id number] [place] [address] [id number] May, Diabetes type 2, uncontrolled E11.65 ; Encounter for immunization Z23 and Morbid obesity due to excess calories E66.01 [facility] [id number] [place] [address] [id number] May, [facility] [address] [address] Apr, [address] [id number] Apr, Hyperglycemia R73.[address] [id number] Apr, [address] [id number] Apr, Depression F32.9 ; Encounter for immunization Z23 ; Hyperglycemia R73.9 and Anemia in other chronic diseases classified elsewhere D63.8 [facility] [id number] [place] [address] [id number] Mar, [address] [id number] [place] [address] [id number] Feb, Positive occult stool blood test 792.1 [place] [id number] [place] [address] [id number] Feb, Depression 311 ; Other chronic pain 338.29 and Diabetes with renal manifestations, type II or unspecified type, not stated as uncontrolled 250.40 [facility] [id number] [place] [address] Feb, Occult blood in stools 792.1 [place] [id number] [place] [address] [id number] Feb, Anemia 285.9 ; Occult blood positive stool 792.1 ; Unspecified essential hypertension 401.9 and Other chronic pain 338.29 [facility] [id number], [place] [id number] Feb, [facility] [id number] [place] [address] [id number] Feb, Anemia 285.9 [facility] [id number] [place] [address] [id number] Feb, [facility] [id number] [place] [address] [id number] Feb, [facility] [id number] [place] [address] [id number] Feb, Diabetes with renal manifestations, type II or unspecified type, not stated as uncontrolled 250.40 ; Other chronic pain 338.29 ; Unspecified essential hypertension 401.9 ; Anemia 285.9 and Depression 311 [facility] [id number] [place] [address] [id number] Jan, [facility] [id number] [place] [address] [id number] Jan, Anemia 285.9 and Follow up V67.9 [facility] [id number] [place] [address] [id number] Jan, [facility] [id number] [place] [address] [id number] Jan, [facility] [id number] [place] [address] [id number] Jan, [facility] [id number] [place] [address] [id number] Dec, [facility] [id number] [place] [address] Oct, [facility] [id number] [place] [address] Oct, [facility] [id number] [place] [address] Sep, [facility] [address] [id number], [place] [id number] Sep, [facility] [id number] [place] [address] Sep, [facility] [place] [address] [id number] [place] [id number] Aug, [facility] [place] [facility] [address] [facility] [id number], [place] [address] Aug, [facility] [place] [facility] [address] [facility] [id number] [place] [address] Aug, [facility] [place] [address] [id number], [place] [id number] Aug, [facility] [place] [facility] [address] [facility] [id number] [place] [address] Aug, [facility] [place] [facility] [address] [facility] [id number], [place] [address] Aug, [facility] [place] [address] [facility] [id number], [place] [id number] Aug, [facility] [place] [facility] [address]65[address], [place] [address] Aug, [facility] [place] [address] [facility] [id number], [place] [id number] Jul, [facility] [place] [facility] [address]00565[address], [place] [address] Jul, [facility] [place] [facility] [address] [facility] [id number], [place] [address] Jul, [facility] [place] [address] [facility] [id number], [place] [id number] Jul, [facility] [place] [facility] [address] [facility] [id number], [place] [address] Jul, [facility] [place] [address] [facility] [id number], [place] [id number] Jul, [facility] [place] [facility] [address] [facility] [id number], [place] [address] Jul, [facility] [place] [address] [id number], [place] [id number] Jun, [facility] [place] [address] [facility] [id number], [place] [id number] Jun, [facility] [place] [facility] [address] [facility] [id number], [place] [address] Jun, [facility] [place] [facility] [address] [facility] [id number], [place] [address] Jun, [facility] [place] [address] [facility] [id number], [place] [id number] Jun, [facility] [place] [facility] [address] [facility] [id number], [place] [address] Jun, [facility] [place] [address] [facility] [id number], [place] [id number] May, [facility] [place] [facility] [address] [facility] [id number], [place] [address] May, [facility] [place] [facility] [address]65[address], [place] [address] May, [facility] [place] [address] [facility] [id number], [place] [id number] Apr, [facility] [place] [facility] [address] [facility] [id number], [place] [address] Apr, [facility] [place] [address] [facility] [id number], [place] [id number] Apr, [facility] [place] [address] [facility] [id number], [place] [id number] Apr, [facility] [place] [facility] [address] [facility] [id number], [place] [address] Apr, [facility] [place] [facility] [address] [facility] [id number], [place] [address] Apr, [facility] [place] [address] [facility] [id number], [place] [id number] Mar, [facility] [place] [facility] [address] [facility] [id number], [place] [address] Mar, [facility] [place] [address] [facility] [id number], [place] [id number] Mar, [facility] [place] [facility] [address] [id number], [place] [address] Mar, [facility] [place] [address] [id number] [place] [id number] Mar, [facility] [place] [facility] [address] [facility] [id number] [place] [address] Mar, [facility] [place] [address] [id number] [place] [id number] Mar, [facility] [place] [facility] [address] [facility] [id number] [place] [address] Mar, [facility] [place] [address] [id number] [place] [id number] Mar, [facility] [place] [facility] [address] [facility] [id number], [place] [address] Mar, [facility] [place] [address] [facility] [id number], [place] [id number] Feb, [facility] [place] [facility] [address] [facility] [id number], [place] [address] Feb, [facility] [place] [address] [facility] [id number], [place] [id number] Jan, [facility] [place] [facility] [address] [facility] [id number], [place] [address] Jan, [facility] [place] [address] [facility] [id number], [place] 055371182 Jan, [facility] [place] [facility] [address] [facility] [id number], [place] [address] Jan, [facility] [place] [address] [facility] [id number], [place] [id number] Jan, [facility] [place] [facility] [address] [facility] [id number] [place] [address] Jan, [facility] [place] [facility] [address] [facility] [id number], [place] [address] Dec, [facility] [place] [facility] [address] [facility] [id number], [place] [address] Dec, [facility] [place] [address] [id number] [place] [id number] November, [facility] [place] [facility] [address] [id number] [place] [address] November, [facility] [place] [address] [id number] [place] [id number] November, [facility] [place] [facility] [address] [id number] [place] [address] November, [facility] [place] [address] [id number] [place] [id number] Oct, [facility] [place] [facility] [address] [id number] [place] [address] Oct, [facility] [place] [facility] [address] [facility] [id number] [place] [address] Oct, [facility] [place] [facility] [address] [facility] [id number] [place] [address] Oct, [facility] [place] [facility] [address] [facility] [id number], [place] [address] Oct, [facility] [place] [facility] [address] [facility] [id number] [place] [address] Oct, [facility] [place] [address] [id number], [place] [id number] Sep, [facility] [place] [address] [id number], [place] [id number] Sep, [facility] [place] [facility] [address] [id number], [place] [address] Sep, [facility] [place] [facility] [address] [id number] [place] [address] Sep, [facility] [place] [address] [id number] [place] [id number] Sep, [facility] [place] [facility] [address] [facility] [id number] [place] [address] Sep, [facility] [place] [facility] [address] [id number], [place] [address] Aug, [facility] [place] [facility] [address] [facility] [id number], [place] [address] Aug, [facility] [place] [address] [facility] [id number], [place] 162947282 Aug, [facility] [place] [address] [facility] [id number] [place] [id number] Aug, [facility] [place] [facility] [address] [facility] [id number], [place] [address] Aug, [facility] [place] [address] [facility] [id number] [place] [id number] Aug, [facility] [place] [facility] [address]00565100[place], [place] [address] Aug, [facility] [place] [id number], [place] [id number] Aug, [facility] [place] [facility] [address]00565100[place], [place] [address] Aug, [facility] [place] [address] [id number], [place] 384110019 Aug, [facility] [place] [facility] [address]00565100[place], [place] [address] Aug, [facility] [place] [address] [id number], [place] [id number] Aug, [facility] [place] [facility] [address]00565100[place], [place] [address] Aug, [facility] [place] [facility] [address] [id number], [place] [address] Jul, [facility] [place] [address] [facility] [id number], [place] [id number] Jun, [facility] [place] [facility] [address] [id number], [place] [address] Jun, [facility] [place] [facility] [address]00565[address], [place] [address] Jun, [facility] [place] [facility] [address] [id number] [place] [address] Jun, [facility] [place] [address] [id number], [place] [id number] Jun, [facility] [place] [facility] [address] [facility] [id number] [place] [address] Jun, [facility] [place] [facility] [address] [id number] [place] [address] Jun, [facility] [place] [address] [facility] [id number] [place] [id number] Jun, [facility] [place] [facility] [address] [id number], [place] [address] Jun, [facility] [place] [facility] [address] [facility] [id number], [place] [address] May, [facility] [place] [address] [id number], [place] 024746034 May, [facility] [place] [facility] [address] [facility] [id number], [place] [address] May, [facility] [place] [facility] [address] [facility] [id number], [place] [address] May, [facility] [place] [facility] [address] [facility] [id number], [place] [address] May, [facility] [place] [facility] [address] [facility] [id number], [place] [address] May, [facility] [place] [address] [facility] [id number], [place] 087917059 May, [facility] [place] [facility] [address] [facility] [id number], [place] [address] May, [facility] [place] [address] [facility] [id number], [place] 472310161 May, [facility] [place] [facility] [address] [facility] [id number], [place] [address] May, [facility] [place] [address] [facility] [id number], [place] [id number] Apr, [facility] [place] [facility] [address] [facility] [id number], [place] [address] Apr, [facility] [place] [facility] [address] [facility] [id number], [place] [address] Apr, [facility] [address] [facility] [id number], [place] 567343449 Apr, [facility] [place] [facility] [address] [facility] [id number], [place] [address] Apr, [facility] [place] [facility] [address] [facility] [id number], [place] [address] Apr, [facility] [place] [id number], [place] 734638823 Apr, [facility] [place] [facility] [address]00565100[place], [place] [address] Apr, [facility] [place] [facility] [address]00565100[place], [place] [address] Apr, [facility] [place] [facility] [address]00565100[place], [place] [address] Apr, [facility] [place] [address]00565100[place] 588119142 Apr, [facility] [place] [facility] [address] [facility] [id number], [place] [address] Apr, [facility] [address] [facility] [id number], [place] 818506563 Apr, [facility] [place] [facility] [address] [facility] [id number], [place] [address] Apr, [facility] [address] [facility] [id number], [place] 342101470 Apr, [facility] [place] [facility] [address] [facility] [id number], [place] [address] Apr, [facility] [place] [facility] [address] [facility] [id number], [place] [address] Apr, [facility] [address] [facility] [id number], [place] [address] Apr, [facility] [place] [address] [id number] [place] [id number] Apr, [facility] [address] [facility] [id number], [place] [address] Mar, [facility] [address] [facility] [id number], [place] [address] Mar, [facility] [place] [address] [id number] [place] [id number] Mar, [facility] [place] [address] [id number] [place], [place] 610100079 Mar, [facility] [place] [address] [id number] [place] [id number] Mar, [facility] [place] [address] [id number] [place] [id number] Feb, [facility] [place] [address] [id number] [place] [id number] Feb, [facility] [place] [address] [id number] [place] [id number] Feb, [facility] [address] [facility] [id number], [place] [address] Feb, [facility] [place] [address] [id number] [place] [id number] Feb, [facility] [place] [address] [id number] [place] [id number] Feb, [facility] [place] [address] [id number] [place] 081949450 Feb, [facility] [place] [address] [id number] [place] [id number] Feb, [facility] [place] [address] [id number] [place] [id number] Feb, [facility] [place] [address] [id number] [place] [id number] Jan, [facility] [place] [address] [id number] [place] [id number] Jan, [facility] [place] [address] [id number] [place] [id number] Jan, [facility] [place] [address] [id number] [place] [id number] Jan, [facility] [place] [address] [id number] [place] [id number] Jan, [facility] [id number] [place] [address] Jan, [facility] [place] [address] [id number] [place] [id number] Jan, [facility] [place] [address] [id number] [place] [id number] Jan, [facility] [place] [address] [id number] [place] [id number] Dec, [facility] [place] [address] [id number] [place] [id number] November, [facility] [place] [address] [id number] [place] [id number] November, [facility] [place] [address] [id number] [place] [id number] November, [facility] [place] [address] [id number] [place] [id number] November, [facility] [place] [address] [id number] [place] [id number] November, [facility] [place] [address] [id number] [place] [id number] November, [facility] [place] [address] [id number] [place] [id number] Jul, [facility] [address] [id number] [place] [id number] Jul, [facility] [place] [address] [id number] [place] [id number] Jul, [facility] [place] [address] [id number] [place] [id number] Jun, [facility] [id number] [address] Jun, [facility] [address] [id number][place] [id number] May, [facility] [address] [facility] [id number], [place] [address] May, [facility] [place] [address] [id number][place] [id number] May, [facility] [address] [facility] [id number], [place] [address] May, [facility] [address] [id number], [place] [id number] May, [facility] [address] [facility] [id number], [place] [address] May, [facility] [address] [id number], [place] [id number] Apr, [facility] [id number], [place] [address] Apr, [facility] [address] [facility] [id number], [place] [address] Apr, [facility] [address] [id number], [place] [id number] Apr, [facility] [address] [id number], [place] [id number] Apr, [facility] [address], [place] [address] Apr, [facility] [address] [facility] [id number], [place] [address] Apr, [facility] [address] [id number], [place] [id number] Apr, [facility] [address] [facility] [id number], [place] [address] Apr, [facility] [address] [id number], [place] [id number] Apr, [facility] [address] [id number] [place] [address] [place] [id number] Apr, [facility] [place] [address] [id number] [place] [id number] Mar, [facility] [address] [id number] [place] [id number] Feb, [facility] [place] [address] [id number] [place] [id number] Jan, [facility] [place] [address] [id number] [place] [id number] Dec, [facility] [place] [address] [id number] [place] [id number] Dec, [facility] [place] [address] [id number] [place] [id number] Dec, [facility] [place] [address] [id number] [place] [id number] Dec, [facility] [address] [id number] [place] [id number] Dec, [facility] [place] [address] [id number] [place] [id number] November, [facility] [place] [address] [id number] [place] [id number] November, [facility] [place] [address] [id number] [place] [id number] November, [facility] [address] [facility] [id number], [place] [address] November, [facility] [address] [id number] [place] [id number] November, [facility] [address] [id number] [place] [id number] November, [facility] [address] [id number] [place] [id number] Oct, [facility] [place] [address] [id number] [place] [id number] Oct, [facility] [address] [id number] [place] [id number] Oct, [facility] [address] [id number] [place] [id number] Oct, [facility] [address] [id number] [place] [id number] Oct, [facility] [place] [address] [id number] [place] [id number] Oct, [facility] [place] [address] [id number] [place] [id number] Sep, [facility] [address] [id number] [place] [id number] Aug, [facility] [address] [id number] [place] [id number] Aug, [facility] [place] [address] [id number] [place] [id number] Jul, [facility] [address] [facility] [facility] [id number] [address] Jun, [facility] [place] [facility] [address] [id number] [address] Jun, [facility] [place] [facility] [id number], [place] [address] Jun, [facility] [place] [facility] [id number], [place] [address] Jun, [facility] [place] [facility] [id number], [place] [address] May, [facility] [place] [facility] [id number], [place] [address] May, [facility] [place] [facility] [id number], [place] [address] Apr, [facility] [place] [facility] [address] [id number], [place] [address] Apr, [facility] [place] [facility] [id number], [place] [address] Apr, [facility] [place] [facility] [id number], [place] [address] Feb, [facility] [place] [facility] [id number] [address] 15 Aug, 2010 [facility] [address] [id number] [place] [address] 18 Jul, 2010 [facility] [place] [facility] [address] [id number] [place] [address] 30 Jun, 2010 [facility] [address] [id number] [place] [address] 29 May, 2010 [facility] [place] [facility] [address] [id number] [place] [address] May, [facility] [id number] [address], [place] [address] May, [facility] [address] [facility] [id number] [place] [address] May, [facility] [address] [facility] [id number] [place] [address] May, [facility] [address] [id number] [place] [address] 16 Aug, 2009 [facility] [address] [facility] [id number] [place] [address] Jun, [facility] [address] [facility] [id number] [place] [address] Jun, [facility] [place] [facility] [address] [facility] [id number] [place] [address] Jun, [facility] [address] [id number], [place] [address] 24 May, 2009 [facility] [place] [facility] [address] [id number] [place] [address] 28 Apr, 2009 [facility] [place] [facility] [address] [facility] [id number] [place] [address] Apr, [facility] [address] [facility] [id number], [place] [address] Apr, [facility] [address] [facility] [id number], [place] [address] Jan, [facility] [address] [facility] [id number], [place] [address] Oct, [facility] [address] [facility] [id number], [place] [address] May, [facility] [address] [facility] [id number], [place] [address] May, IMMUNIZATIONS No Known Immunizations SOCIAL HISTORY Never Assessed REASON FOR VISIT Requests return call PLAN OF CARE VITAL SIGNS MEDICATIONS Medication Instructions Dosage Frequency Start Date End Date Duration Status Tylenol 325 MG Orally every 4 hrs 2 tablets as needed 4h Jan, Active RESULTS No Results PROCEDURES No [...] Dialysis [facility] 2012 -Dr. Simon now [facility] Medical History Colonoscopy (polyps 2 ) [...]
--- OUTSIDE RECORDS SUMMARY | 2018-12-28 17:59 | XMS REPORT ---
Author Author ASYA SNOW [facility] Address [address] [place] [address] Care Team Providers Care Customer Success Manager Name Role Phone ASYA SNOW Unavailable PROBLEMS Type Condition ICD9-CM Code AKA09-[place] Code Onset Dates Condition Status SNOMED Code Problem Chronic kidney disease, stage 4 (severe) N18.4 Active 743400188 Problem Psoriasis of scalp L40.9 Active 330683047 Problem Type 2 diabetes mellitus with hyperglycemia E11.65 Active 988370628853492 Problem Fibromyalgia M79.7 Active 064751535 Problem History of DVT (deep vein thrombosis) Z86.718 Active 710078153 Problem Carpal tunnel syndrome, bilateral G56.03 Active 57713447017563284 Problem Type 2 diabetes mellitus with other diabetic kidney complication E11.29 Active 581797517 Problem Anemia in other chronic diseases classified elsewhere D63.8 Active 173505927 Problem 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 Active 795613625 Problem Paresthesia of right upper extremity R20.2 Active 15457389 Problem Bilateral lower extremity edema R60.0 Active 457883829 Problem Supplemental oxygen dependent Z99.81 Active 225142414944 Problem Sleep apnea in adult G47.33 Active 67069720 Problem Chronic pain syndrome G89.4 Active 527796610 Problem [facility] current use of anticoagulant Z79.01 Active 259175496 Problem Essential hypertension I10 Active 89085437 Problem Gastroesophageal reflux disease without esophagitis K21.9 Active 825998140 Problem Chronic obstructive pulmonary disease, unspecified COPD type J44.9 Active 97648420 Problem 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 Active 523433373982018 Problem Primary insomnia F51.01 Active 5571150 Problem Oxygen desaturation during sleep G47.34 Active 106012333 Problem Right carpal tunnel syndrome G56.01 Active 000469407179133 Problem Diabetic polyneuropathy associated with type 2 diabetes mellitus E11.42 Active 60204789 Problem Depression, unspecified depression type F32.9 Active 16813532 ALLERGIES No Information ENCOUNTERS Encounter Location Date Diagnosis [facility] [address], [place] [address] Feb, [facility] [address], [place] [address] Feb, [facility] [address], [place] [address] Jan, [facility] [address], [place] [address] Jan, [facility] [address], [place] [address] Jan, [address] [id number] Jan, [facility] [address], [place] [address] Jan, [facility] [address], [place] [address] Jan, [facility] [address], [place] [address] Jan, Essential hypertension I10 [facility] [address], [place] [address] Jan, Chronic obstructive pulmonary disease, unspecified COPD type J44.9 [facility] [address], [place] [address] Jan, [facility] [address], [place] [address] Jan, [facility] [address], [place] [address] Jan, Type 2 diabetes mellitus with other diabetic kidney complication E11.29 ; Anemia in other chronic diseases classified elsewhere D63.8 ; Chronic obstructive pulmonary disease, unspecified COPD type J44.9 and BMI 60.0-69.9, adult Z68.44 [facility] [id number] [address] Jan, [facility] [id number] [place] [address] Jan, [facility] [id number] [id number] Jan, [facility] [id number] [place] [id number] Dec, [facility] [id number] [place] [id number] Dec, [facility] [id number] [place] [id number] Dec, Essential hypertension I10 ; Type 2 diabetes mellitus with other diabetic kidney complication E11.29 ; Depression, unspecified depression type F32.9 ; Supplemental oxygen dependent Z99.81 ; Chronic pain syndrome G89.4 ; Fibromyalgia M79.7 ; Carpal tunnel syndrome, bilateral G56.03 and Chronic kidney disease, stage 4 (severe) N18.4 [facility] [address] [place] [address] Dec, Essential hypertension I10 [facility] [id number] [place] [address] November, Type 2 diabetes mellitus with other diabetic kidney complication E11.29 [facility] [id number] [address] November, Chronic pain syndrome G89.4 [facility] [address], [place] [address] November, [facility] [id number] [place] [address] November, [facility] [id number] [place] [address] November, [facility] [id number] [address] Oct, Type 2 diabetes mellitus with other diabetic kidney complication E11.29 [facility] [address], [place] [address] Oct, Primary insomnia F51.01 [address] [id number] [id number] Oct, Bilateral lower extremity edema R60.0 [facility] [address] [place] [address] Oct, [place] [id number] [place] [address] Sep, Type 2 diabetes mellitus with other diabetic kidney complication E11.29 and Chronic obstructive pulmonary disease, unspecified COPD type J44.9 [place] [address] [place] [address] 15 Aug, 2017 Type 2 diabetes mellitus with other diabetic kidney complication E11.29 [address] [place] [address] 12 Aug, 2017 Gastroesophageal reflux disease without esophagitis K21.9 ; 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 ; Chronic pain syndrome G89.4 ; Essential hypertension I10 and Type 2 diabetes mellitus with other diabetic kidney complication E11.29 [place] [address], [place] [address] 08 Aug, 2017 Chronic pain syndrome G89.4 [place] [place] [address] [place] [address] Aug, Type 2 diabetes mellitus with other diabetic kidney complication E11.29 [facility] [address], [place] [address] Jul, Diabetic polyneuropathy associated with type 2 diabetes mellitus E11.42 [place] [place] [address] [place] [address] Jul, Primary insomnia F51.01 [facility] [address], [place] [address] Jul, [place] [address], [place] [address] Jul, Type 2 diabetes mellitus with other diabetic kidney complication E11.29 and Chronic obstructive pulmonary disease, unspecified COPD type J44.9 [place] [address] [place] [address] Jul, Type 2 diabetes mellitus with other diabetic kidney complication E11.29 [place] [id number] [place] [address] Jun, Type 2 diabetes mellitus with other diabetic kidney complication E11.29 [facility] [id number] [place] [address] 27 Jun, 2017 [place] [id number] [place] [address] Jun, Chronic obstructive pulmonary disease, unspecified COPD type J44.9 [place] [id number] [place] [address] May, Type 2 diabetes mellitus with other diabetic kidney complication E11.29 [facility] [place] [id number] [place] [address] May, 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 and Essential hypertension I10 [address] [place] [address] May, Anemia in other chronic diseases classified elsewhere D63.8 ; Chronic obstructive pulmonary disease, unspecified COPD type J44.9 ; Oxygen desaturation during sleep G47.34 ; Sleep apnea in adult G47.33 and Supplemental oxygen dependent Z99.81 [address] [place] [address] May, Type 2 diabetes mellitus with other diabetic kidney complication E11.29 ; Essential hypertension I10 ; Chronic pain syndrome G89.4 ; BMI 40.0- 44.9, adult Z68.41 ; Gastroesophageal reflux disease without esophagitis K21.9 ; [facility] current use of anticoagulant Z79.01 ; [facility] 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 ; Diabetic polyneuropathy associated with type 2 diabetes mellitus E11.42 ; Edema of both legs R60.0 and Supplemental oxygen dependent Z99.81 [place] [id number] [place] [address] May, [place] [id number] [place] [address] May, Essential hypertension I10 and Gastroesophageal reflux disease without esophagitis K21.9 [place] [address] [address] May, [place] [address] [address] May, Type 2 diabetes mellitus with other diabetic kidney complication E11.29 and [facility] current use of anticoagulant Z79.01 [place] [id number] [place] [address] Apr, Chronic pain syndrome G89.4 and Essential hypertension I10 [place] [id number] [place] [address] Apr, Type 2 diabetes mellitus with other diabetic kidney complication E11.29 [facility] [id number] [place] [address] Apr, Type 2 diabetes mellitus with other diabetic kidney complication E11.29 [facility] [id number] [place] [address] Apr, Essential hypertension I10 [place] [facility] [id number] [place] [address] Apr, Gastroesophageal reflux disease without esophagitis K21.9 [place] [id number] [place] [address] Apr, Type 2 diabetes mellitus with other diabetic kidney complication E11.29 [place] [id number] [place] [address] Apr, Type 2 diabetes mellitus with other diabetic kidney complication E11.29 and 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 [facility] [address], [place] [address] 27 Mar, 2017 Encounter for immunization Z23 and Preoperative examination Z01.818 [facility] [id number] [place] [address] Mar, [facility] [id number] [place] [address] Mar, Type 2 diabetes mellitus with other diabetic kidney complication E11.29 [place] [id number] [place] [address] 08 Mar, 2017 Type 2 diabetes mellitus with other diabetic kidney complication E11.29 [place] [id number] [place] [address] Mar, Gastroesophageal reflux disease without esophagitis K21.9 [place] [id number] [place] [address] Mar, Essential hypertension I10 [place] [id number] [place] [address] Feb, 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 [facility] [id number] [place] [address] Feb, Type 2 diabetes mellitus with other diabetic kidney complication E11.29 [facility] [id number] [place] [address] Feb, Type 2 diabetes mellitus with other diabetic kidney complication E11.29 [facility] [id number] [place] [address] Feb, Type 2 diabetes mellitus with other diabetic kidney complication E11.29 [place] [id number] [place] [address] Feb, Gastroesophageal reflux disease without esophagitis K21.9 [facility] [id number] [place] [address] 03 Aug, 2017 Type 2 diabetes mellitus with other diabetic kidney complication E11.29 [facility] [address], [place] [address] Feb, [facility] current use of anticoagulant Z79.01 [facility] [address], [place] [address] Jan, Type 2 diabetes mellitus with other diabetic kidney complication E11.29 [facility] [id number] [place] [address] Jan, Type 2 diabetes mellitus with other diabetic kidney complication E11.29 [facility] [address], [place] [address] Jan, Chronic pain syndrome G89.4 [facility] [id number], [place] [address] Jan, [facility] [id number] [place] [address] Jan, [facility] [address], [place] [address] Jan, [facility] [id number] [place] [address] Jan, [facility] [address], [place] [address] Jan, Primary insomnia F51.01 ; Type 2 diabetes mellitus with other diabetic kidney complication E11.29 ; Chronic pain syndrome G89.4 and Essential hypertension I10 [facility] [address], [place] [address] Jan, Primary insomnia F51.01 [facility] [id number] [place] [address] Jan, Type 2 diabetes mellitus with other diabetic kidney complication E11.29 [facility] [address], [place] [address] Jan, [facility] [address] [place] [address] Jan, 2017 Chronic obstructive pulmonary disease, unspecified COPD type J44.9 [facility] [id number] [place] [address] Jan, Essential hypertension I10 ; Type 2 diabetes mellitus with other diabetic kidney complication E11.29 ; Chronic obstructive pulmonary disease, unspecified COPD type J44.9 ; Chronic kidney disease, stage 4 (severe) N18.4 ; Right carpal tunnel syndrome G56.01 ; 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 ; terminal gauger supervisor (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 and Diabetic polyneuropathy associated with type 2 diabetes mellitus E11.42 [place] [id number] [place] [address] Jan, Gastroesophageal reflux disease without esophagitis K21.9 [facility] [id number] [place] [address] Dec, [facility] [id number] [place] [address] Dec, [facility] [id number] [place] [address] Dec, 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 ; Chronic pain syndrome G89.4 and Essential hypertension I10 [facility] [id number], [place] [address] Dec, [facility] [id number] [place] [address] Dec, Type 2 diabetes mellitus with other diabetic kidney complication E11.29 [facility] [id number], [place] [address] Dec, [facility] [id number] [place] [address] Dec, Gastroesophageal reflux disease without esophagitis K21.9 [facility] [id number] [place] [address] 24 May, 2017 Type 2 diabetes mellitus with other diabetic kidney complication E11.29 [facility] [address], [place] [address] November, [facility] [address] [place] [address] November, Type 2 diabetes mellitus with other diabetic kidney complication E11.29 [facility] [address] [place] [address] November, [facility] [address] [place] [address] November, Type 2 diabetes mellitus with other diabetic kidney complication E11.29 [facility] [id number] [place] [address] November, [facility] [id number] [place] [address] Oct, Essential hypertension I10 [facility] [id number] [place] [address] Oct, Psoriasis of scalp L40.9 [facility] [id number] [place] [address] Oct, Essential hypertension I10 and Chronic pain syndrome G89.4 [facility] [address] [place] [address] Oct, [facility] [address] [place] [address] Sep, Type 2 diabetes mellitus with other diabetic kidney complication E11.29 [facility] [address], [place] [address] Sep, [facility] [id number] [place] [address] Sep, Type 2 diabetes mellitus with other diabetic kidney complication E11.29 [facility] [address], [place] [address] Sep, Type 2 diabetes mellitus with other diabetic kidney complication E11.29 [place] [id number] [place] [address] 09 Sep, 2017 Type 2 diabetes mellitus with other diabetic kidney complication E11.29 ; Chronic kidney disease, stage 4 (severe) N18.4 ; Chronic obstructive pulmonary disease, unspecified COPD type J44.9 ; Iron deficiency anemia due to chronic blood loss D50.0 ; [facility] current use of anticoagulant Z79.01 ; Gastroesophageal reflux disease without esophagitis K21.9 ; Essential hypertension I10 ; Primary insomnia F51.01 ; Depression, unspecified depression type F32.9 ; Chronic pain syndrome G89.4 ; Wrist pain, right M25.531 ; Paresthesia of right upper extremity R20.2 and Psoriasis of scalp L40.9 [place] [id number] [place] [address] Sep, [address] [address] Aug, Essential hypertension I10 [place] [address] [address] Aug, History of DVT (deep vein thrombosis) Z86.718 [place] [id number] [place] [address] Aug, [place] [id number] [place] [address] Jul, [place] [id number] [place] [address] Jul, [place] [id number] [place] [address] Jul, 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 ; Chronic pain syndrome G89.4 and Chronic kidney disease, stage 4 (severe) N18.4 [place] [id number] [place] [address] Jul, [place] [address] [address] Jul, [place] [address], [place] [address] Jul, [place] [address] [place] [address] Jul, [place] [address], [place] [address] Jul, [place] [id number] [place] [address] Jul, Type 2 diabetes mellitus with other diabetic kidney complication E11.29 [place] [id number] [place] [address] Jul, History of DVT (deep vein thrombosis) Z86.718 [place] [address] [place] [address] Jun, [place] [id number] [place] [address] Jun, History of DVT (deep vein thrombosis) Z86.718 [id number] [place] [address] 15 Jun, 2016 Post traumatic stress disorder (PTSD) F43.10 [address], [place] [address] 07 Jun, 2016 Type 2 diabetes mellitus [...] pain M79.641 and Right wrist pain M25.531 [facility] [id number] [place] [address] May, [facility] [id number] [place] [address] May, [facility] [address] [address] May, [facility] [id number] [place] [address] May, [facility] [id number] [place] [address] May, Anemia in other chronic diseases classified elsewhere D63.8 [facility] [address] [address] May, [facility] [id number] [place] [address] Apr, [facility] [id number] [place] [address] 27 Mar, 2016 Dermatofibroma D23.9 [facility] [id number] [place] [address] 20 Mar, 2016 [facility] [id number] [place] [address] 14 Mar, 2016 Chronic pain syndrome G89.4 [facility] [id number] [place] [address] 09 Mar, 2016 [facility] [id number] [place] [address] 07 Mar, 2016 [facility] [id number] [place] [address] 06 Mar, 2016 [facility] [address] [place] [address] Feb, [facility] [address], [place] [address] Feb, [facility] [address], [place] [address] Feb, [facility] [address] [place] [address] Feb, [facility] [id number] [place] [address] Feb, [facility] [id number] [place] [address] Feb, [facility] [id number] [place] [address] Feb, Type 2 diabetes mellitus with other diabetic kidney complication E11.29 ; Diabetic polyneuropathy associated with type 2 diabetes mellitus E11.42 ; Iron deficiency anemia due to chronic blood loss D50.0 ; Chronic obstructive pulmonary disease, unspecified COPD type J44.9 ; [facility] current use of anticoagulant Z79.01 ; History of DVT (deep vein thrombosis) Z86.718 ; Chronic pain syndrome G89.4 ; Oxygen desaturation during sleep G47.34 ; Sleep apnea in adult G47.33 ; Gastroesophageal reflux disease without esophagitis K21.9 ; Essential hypertension I10 ; Primary insomnia F51.01 ; Depression, unspecified depression type F32.9 and Renal failure, chronic, stage 4 (severe) N18.4 [facility] [id number], [place] [address] Feb, Skin tags, multiple acquired L91.8 [facility] [id number] [place] [address] Jan, [facility] [id number] [place] [address] [id number] Jan, Dental examination Z01.20 [facility] [id number] [place] [address] Jan, [facility] [id number] [place] [address] Jan, Type 2 diabetes mellitus with other [...] Renal failure, chronic, stage 4 (severe) N18.4 [place] [id number] [place] [address] Dec, Diabetes type 2, uncontrolled E11.65 [place] [id number] [place] [address] Dec, [id number] [place] [address] Dec, Type 2 diabetes mellitus with other [...] F51.01 and Depression, unspecified depression type F32.9 [facility] [address] [id number][place] [id number] Dec, Dental caries K02.9 [facility] [address] [id number] [place] [address] [id number] Dec, [facility] [address] [id number] [place] [id number] Dec, Dental examination Z01.20 [facility] [address] [id number][place] [id number] November, Dental examination Z01.20 and Dental caries K02.9 [facility] [address] [id number][place] [id number] Oct, [facility] [address] [id number] [place] [address] [id number] Oct, [facility] [address] [id number] [place] [address] [id number] Sep, [facility] [address] [id number] [place] [address] [id number] Sep, [facility] [address] [id number] [place] [address] [id number] Sep, [facility] [address] [id number] [place] [address] [id number] Sep, Other chronic pain 338.29 [facility] [address] [id number] [place] [address] [id number] Aug, Diabetes type 2, uncontrolled E11.65 and Morbid obesity due to excess calories E66.01 [facility] [address] [id number] [place] [address] [id number] Aug, Hair loss L65.9 [facility] [address] [id number], [place] [id number] Aug, [facility] [address] [id number] [place] [address] [id number] Jul, [facility] [address] [id number][place] [id number] Jul, [facility] [address] [id number] [place] [address] [id number] Jun, [facility] [address] [id number] [place] [address] [id number] Jun, Hair loss L65.9 and Disorder of the skin and subcutaneous tissue, unspecified L98.9 [facility] [id number] [place] [address] [id number] May, Type 2 diabetes mellitus with other diabetic kidney complication E11.29 ; Type 2 diabetes mellitus with hyperglycemia E11.65 ; Morbid obesity due to excess calories E66.01 and Essential hypertension I10 [facility] [id number] [place] [address] [id number] May, Diabetes type 2, uncontrolled E11.65 ; Encounter for immunization Z23 and Morbid obesity due to excess calories E66.01 [facility] [id number] [place] [address] [id number] May, [facility] [address] [address] Apr, [address] [id number] Apr, Hyperglycemia R73.[address] [id number] Apr, [address] [id number] Apr, Depression F32.9 ; Encounter for immunization Z23 ; Hyperglycemia R73.9 and Anemia in other chronic diseases classified elsewhere D63.8 [facility] [id number] [place] [address] [id number] Mar, [place] [id number] [place] [address] [id number] Feb, Positive occult stool blood test 792.1 [id number] [place] [address] [id number] Feb, Depression 311 ; Other chronic pain 338.29 and Diabetes with renal manifestations, type II or unspecified type, not stated as uncontrolled 250.40 [facility] [id number] [place] [address] Feb, Occult blood in stools 792.1 [address] [address] [id number] [place] [address] [id number] Feb, Anemia 285.9 ; Occult blood positive stool 792.1 ; Unspecified essential hypertension 401.9 and Other chronic pain 338.29 [facility] [id number], [place] [id number] Feb, [facility] [id number] [place] [address] [id number] Feb, Anemia 285.9 [facility] [id number] [place] [address] [id number] Feb, [facility] [id number] [place] [address] [id number] Feb, [facility] [id number] [place] [address] [id number] Feb, Diabetes with renal manifestations, type II or unspecified type, not stated as uncontrolled 250.40 ; Other chronic pain 338.29 ; Unspecified essential hypertension 401.9 ; Anemia 285.9 and Depression 311 [facility] [id number] [place] [address] [id number] Jan, [facility] [id number] [place] [address] [id number] Jan, Anemia 285.9 and Follow up V67.9 [facility] [id number] [place] [address] [id number] Jan, [facility] [id number] [place] [address] [id number] Jan, [facility] [id number] [place] [address] [id number] Jan, [facility] [id number] [place] [address] [id number] Dec, [facility] [id number] [place] [address] Oct, [facility] [id number] [place] [address] Oct, [facility] [id number] [place] [address] Sep, [facility] [address] [id number], [place] [id number] Sep, [facility] [id number] [place] [address] Sep, [facility] [address] [id number] [place] [id number] Aug, [facility] [place] [facility] [address] [facility] [id number], [place] [address] Aug, [facility] [place] [facility] [address] [facility] [id number] [place] [address] Aug, [facility] [address] [id number], [place] [id number] Aug, [facility] [place] [facility] [address] [facility] [id number] [place] [address] Aug, [facility] [place] [facility] [address] [facility] [id number], [place] [address] Aug, [facility] [place] [address] [facility] [id number], [place] [id number] Aug, [facility] [place] [facility] [id number] [address] Aug, [facility] [place] [address] [facility] [id number], [place] [id number] Jul, [facility] [place] [facility] [address]00565100[place] [address] Jul, [facility] [place] [facility] [address] [facility] [id number], [place] [address] Jul, [facility] [address] [facility] [id number], [place] [id number] Jul, [facility] [place] [facility] [address] [facility] [id number], [place] [address] Jul, [facility] [address] [facility] [id number], [place] [id number] Jul, [facility] [place] [facility] [address] [facility] [id number][place] [address] Jul, [facility] [address] [id number], [place] [id number] Jun, [facility] [address] [facility] [id number], [place] 956161906 Jun, [facility] [place] [facility] [address] [facility] [id number], [place] [address] Jun, [facility] [place] [facility] [address] [facility] [id number], [place] [address] Jun, [facility] [address] [facility] [id number], [place] [id number] Jun, [facility] [place] [facility] [address] [facility] [id number][place] [address] Jun, [facility] [address] [facility] [id number], [place] [id number] May, [facility] [place] [facility] [address] [facility] [id number][place] [address] May, [facility] [place] [facility] [address]00565100[place] [address] May, [facility] [address] [facility] [id number], [place] [id number] Apr, [facility] [place] [facility] [address] [facility] [id number] [address] Apr, [facility] [address] [facility] [id number], [place] [id number] Apr, [facility] [address] [facility] [id number], [place] [id number] Apr, [facility] [place] [facility] [address] [facility] [id number][place] [address] Apr, [facility] [place] [facility] [address] [facility] [id number], [place] [address] Apr, [facility] [address] [facility] [id number], [place] [id number] Mar, [facility] [place] [facility] [address] [facility] [id number][place] [address] Mar, [facility] [address] [facility] [id number], [place] [id number] Mar, [facility] [place] [facility] [address] [id number][place] [address] Mar, [facility] [address] [id number] [place] [id number] Mar, [facility] [place] [facility] [address] [facility] [id number] [place] [address] Mar, [facility] [address] [id number] [place] [id number] Mar, [facility] [place] [facility] [address] [facility] [id number] [place] [address] Mar, [facility] [address] [id number] [place] [id number] Mar, [facility] [place] [facility] [address] [facility] [id number][place] [address] Mar, [facility] [address] [facility] [id number], [place] [id number] Feb, [facility] [place] [facility] [address] [facility] [id number][place] [address] Feb, [facility] [address] [facility] [id number], [place] [id number] Jan, [facility] [place] [facility] [address] [facility] [id number][place] [address] Jan, [facility] [address] [facility] [id number], [place] [id number] Jan, [facility] [place] [facility] [address] [facility] [id number][place] [address] Jan, [facility] [address] [facility] [id number], [place] [id number] Jan, [facility] [place] [facility] [address] [facility] [id number] [place] [address] Jan, [facility] [place] [facility] [address] [facility] [id number][place] [address] Dec, [facility] [place] [facility] [address] [facility] [id number][place] [address] Dec, [facility] [address] [id number] [place] [id number] November, [facility] [place] [facility] [address] [id number] [place] [address] November, [facility] [address] [id number] [place] [id number] November, [facility] [place] [facility] [address] [id number] [place] [address] November, [facility] [address] [id number] [place] [id number] Oct, [facility] [place] [facility] [address] [id number] [place] [address] Oct, [facility] [place] [facility] [address] [facility] [id number] [place] [address] Oct, [facility] [place] [facility] [address] [facility] [id number] [place] [address] Oct, [facility] [place] [facility] [address] [facility] [id number][place] [address] Oct, [facility] [place] [facility] [address] [facility] [id number] [place] [address] Oct, [facility] [address] [id number], [place] 933424461 Sep, [facility] [address] [id number], [place] [id number] Sep, [facility] [place] [facility] [address] [id number], [place] [address] Sep, [facility] [place] [facility] [address] [id number] [place] [address] Sep, [facility] [address] [id number] [place] [id number] Sep, [facility] [place] [facility] [address] [facility] [id number] [place] [address] Sep, [facility] [place] [facility] [address] [id number] [address] Aug, [facility] [place] [facility] [address] [facility] [id number], [place] [address] Aug, [facility] [address] [facility] [id number], [place] 884226528 Aug, [facility] [address] [facility] [id number] [place] [id number] Aug, [facility] [place] [facility] [address] [facility] [id number], [place] [address] Aug, [facility] [address] [facility] [id number] [place] [id number] Aug, [facility] [place] [facility] [address]00565100[place], [place] [address] Aug, [facility] [id number], [place] 688616043 Aug, [facility] [place] [facility] [address]00565100[place], [place] [address] Aug, [facility] [address] [id number], [place] 557924248 Aug, [facility] [place] [facility] [address]00565100[place], [place] [address] Aug, [facility] [address] [id number], [place] [id number] Aug, [facility] [place] [facility] [address]00565100[place] [address] Aug, [facility] [place] [facility] [address] [id number] [address] Jul, [facility] [address] [facility] [id number], [place] 650289954 Jun, [facility] [place] [facility] [address] [id number] [address] Jun, [facility] [place] [facility] [address]00565100[place], [place] [address] Jun, [facility] [place] [facility] [address] [id number] [place] [address] Jun, [facility] [address] [id number], [place] 093149384 Jun, [facility] [place] [facility] [address] [facility] [id number] [place] [address] Jun, [facility] [place] [facility] [address] [id number] [place] [address] Jun, [facility] [address] [facility] [id number] [place] [id number] Jun, [facility] [place] [facility] [address] [id number], [place] [address] Jun, [facility] [place] [facility] [address] [facility] [id number][place] [address] May, [facility] [address] [id number], [place] 016333190 May, [facility] [place] [facility] [address] [facility] [id number][place] [address] May, [facility] [place] [facility] [address] [facility] [id number][place] [address] May, [facility] [place] [facility] [address] [facility] [id number] [address] May, [facility] [place] [facility] [address] [facility] [id number][place] [address] May, [facility] [address] [facility] [id number], [place] 030693772 May, [facility] [place] [facility] [address] [facility] [id number], [place] [address] May, [facility] [address] [facility] [id number], [place] [id number] May, [facility] [place] [facility] [address] [facility] [id number] [address] May, [facility] [address] [facility] [id number], [place] 057815246 Apr, [facility] [place] [facility] [address] [facility] [id number][place] [address] Apr, [facility] [place] [facility] [address] [facility] [id number][place] [address] Apr, [facility] [address] [facility] [id number], [place] 548070396 Apr, [facility] [place] [facility] [address] [facility] [id number][place] [address] Apr, [facility] [place] [facility] [address] [facility] [id number][place] [address] Apr, [facility] [id number], [place] 348584923 Apr, [facility] [place] [facility] [address]00565100[place], [place] [address] Apr, [facility] [place] [facility] [address]00565100[place], [place] [address] Apr, [facility] [place] [facility] [address]00565100[place], [place] [address] Apr, [facility] [address]00565100[place] [address]7559 Apr, [facility] [place] [facility] [address] [facility] [id number], [place] [address] Apr, [facility] [address] [facility] [id number], [place] 735824466 Apr, [facility] [place] [facility] [address] [facility] [id number] [address] Apr, [facility] [address] [facility] [id number], [place] 315786272 Apr, [facility] [place] [facility] [address] [facility] [id number][place] [address] Apr, [facility] [place] [facility] [address] [facility] [id number][place] [address] Apr, [facility] [address] [facility] [id number][place] [address] Apr, [facility] [address] [id number] [place] [id number] Apr, [facility] [address] [facility] [id number][place] [address] Mar, [facility] [address] [facility] [id number][place] [address] Mar, [facility] [address] [id number] [place] [id number] Mar, [facility] [address] [id number] [place] [id number] Mar, [facility] [address] [id number] [place] [id number] Mar, [facility] [address] [id number] [place] [id number] Feb, [facility] [address] [id number] [place] [id number] Feb, [facility] [address] [id number] [place] [id number] Feb, [facility] [address] [facility] [id number][place] [address] Feb, [facility] [address] [id number] [place] [id number] Feb, [facility] [address] [id number] [place] [id number] Feb, [facility] [address] [id number] [place] 017165275 Feb, [facility] [place] [address] [id number] [place] [id number] Feb, [facility] [place] [address] [id number] [place] [id number] Feb, [facility] [place] [address] [id number] [place] [id number] Jan, [facility] [place] [address] [id number] [place] [id number] Jan, [facility] [place] [address] [id number] [place] [id number] Jan, [facility] [place] [address] [id number] [place] [id number] Jan, [facility] [place] [address] [id number] [place] [id number] Jan, [facility] [id number] [place] [address] Jan, [facility] [place] [address] [id number] [place] [id number] Jan, [facility] [place] [address] [id number] [place] [id number] Jan, [facility] [place] [address] [id number] [place] [id number] Dec, [facility] [place] [address] [id number] [place] [id number] November, [facility] [place] [address] [id number] [place] [id number] November, [facility] [place] [address] [id number] [place] [id number] November, [facility] [place] [address] [id number] [place] [id number] November, [facility] [place] [address] [id number] [place] [id number] November, [facility] [place] [address] [id number] [place] [id number] November, [facility] [place] [address] [id number] [place] [id number] Jul, [facility] [place] [address] [id number] [place] [id number] Jul, [facility] [place] [address] [id number] [place] [id number] Jul, [facility] [place] [address] [id number] [place] [id number] Jun, [facility] [id number] [address] Jun, [facility] [place] [address] [id number][place] [id number] May, [facility] [address] [facility] [id number], [place] [address] May, [facility] [place] [address] [id number][place] [id number] May, [facility] [address] [facility] [id number], [place] [address] May, [facility] [place] [address] [id number][place] [id number] May, [facility] [address] [facility] [id number][place] [address] May, [facility] [place] [address] [id number], [place] [id number] Apr, [facility] [id number] [address] Apr, [facility] [address] [facility] [id number], [place] [address] Apr, [facility] [place] [address] [id number][place] [id number] Apr, [facility] [place] [address] [id number], [place] [id number] Apr, [facility] [id number] [address] Apr, [facility] [address] [facility] [id number], [place] [address] Apr, [facility] [place] [address] [id number][place] [id number] Apr, [facility] [address] [facility] [id number], [place] [address] Apr, [facility] [place] [address] [id number][place] [id number] Apr, [facility] [place] [address] [id number] [place] [address] [place] [id number] Apr, [facility] [place] [address] [id number] [place] [id number] Mar, [facility] [place] [address] [id number] [place] [id number] Feb, [facility] [place] [address] [id number] [place] [id number] Jan, [facility] [place] [address] [id number] [place] [id number] Dec, [facility] [place] [address] [id number] [place] [id number] Dec, [facility] [place] [address] [id number] [place] [id number] Dec, [facility] [place] [address] [id number] [place] [id number] Dec, [facility] [place] [address] [id number] [place] [id number] Dec, [facility] [place] [address] [id number] [place] [id number] November, [facility] [place] [address] [id number] [place] [id number] November, [facility] [place] [address] [id number] [place] [id number] November, [facility] [address] [facility] [id number], [place] [address] November, [facility] [place] [address] [id number] [place] [id number] November, [facility] [place] [address] [id number] [place] [id number] November, [facility] [place] [address] [id number] [place] [id number] Oct, [facility] [place] [address] [id number] [place] [id number] Oct, [facility] [place] [address] [id number] [place] [id number] Oct, [facility] [place] [address] [id number] [place] [id number] Oct, [facility] [place] [address] [id number] [place] [id number] Oct, [facility] [place] [address] [id number] [place] [id number] Oct, [facility] [place] [address] [id number] [place] [id number] Sep, [facility] [place] [address] [id number] [place] [id number] Aug, [facility] [place] [address] [id number] [place] [id number] Aug, [facility] [place] [address] [id number] [place] [id number] Jul, [facility] [place] [facility] [address] [facility] [id number], [place] [address] Jun, [facility] [place] [facility] [address] [id number] [address] Jun, [facility] [place] [facility] [id number] [address] Jun, [facility] [place] [facility] [id number] [address] Jun, [facility] [place] [facility] [id number], [place] [address] May, [facility] [place] [facility] [id number], [place] [address] May, [facility] [place] [facility] [id number], [place] [address] Apr, [facility] [place] [facility] [address] [id number], [place] [address] Apr, [facility] [place] [facility] [id number], [place] [address] Apr, [facility] [place] [facility] [id number], [place] [address] Feb, [facility] [place] [facility] [id number] [address] 15 Aug, 2010 [facility] [address] [id number] [place] [address] 18 Jul, 2010 [facility] [place] [facility] [address] [id number] [place] [address] 30 Jun, 2010 [facility] [address] [id number] [place] [address] 29 May, 2010 [facility] [place] [facility] [address] [id number] [place] [address] May, [facility] [id number] [place] [address], [place] [address] May, [facility] [address] [facility] [id number] [place] [address] May, [facility] [address] [facility] [id number] [place] [address] May, [facility] [address] [id number] [place] [address] 16 Aug, 2009 [facility] [address] [facility] [id number] [place] [address] Jun, [facility] [address] [facility] [id number] [place] [address] Jun, [facility] [place] [facility] [address] [facility] [id number] [place] [address] Jun, [facility] [address] [id number], [place] [address] 24 May, 2009 [facility] [place] [facility] [address] [id number] [place] [address] 28 Apr, 2009 [facility] [place] [facility] [address] [facility] [id number] [place] [address] Apr, [facility] [address] [facility] [id number], [place] [address] Apr, [facility] [address] [facility] [id number], [place] [address] Jan, [facility] [address] [facility] [id number], [place] [address] Oct, [facility] [address] [facility] [id number], [place] [address] May, [facility] [address] [facility] [id number], [place] [address] May, IMMUNIZATIONS No Known Immunizations SOCIAL HISTORY Never Assessed REASON FOR VISIT Pharmacy interchange PLAN OF CARE VITAL SIGNS MEDICATIONS Medication [...] Dialysis Ruthy Reveles 2012 -Dr. Simon now [facility] Medical History Colonoscopy (polyps 2 ) [...]
--- OUTSIDE RECORDS SUMMARY | 2018-12-28 18:00 | XMS REPORT ---
Author Author ASYA SNOW [facility] Address [address] [place] [address] Care Team Providers Care Neuropsychology Division Chief Name Role Phone ASYA SNOW Unavailable PROBLEMS Type Condition ICD9-CM Code WDF93-VH Code Onset Dates Condition Status SNOMED Code Problem Chronic kidney disease, stage 4 (severe) N18.4 Active 510161611 Problem Psoriasis of scalp L40.9 Active 052989925 Problem Type 2 diabetes mellitus with hyperglycemia E11.65 Active 710676474090161 Problem Fibromyalgia M79.7 Active 915419415 Problem History of DVT (deep vein thrombosis) Z86.718 Active 239990065 Problem Carpal tunnel syndrome, bilateral G56.03 Active 36504806580676747 Problem Type 2 diabetes mellitus with other diabetic kidney complication E11.29 Active 767498363 Problem Anemia in other chronic diseases classified elsewhere D63.8 Active 454241918 Problem 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 Active 428762989 Problem Paresthesia of right upper extremity R20.2 Active 08692202 Problem Bilateral lower extremity edema R60.0 Active 195640756 Problem Supplemental oxygen dependent Z99.81 Active 809637359019 Problem Sleep apnea in adult G47.33 Active 10030284 Problem Chronic pain syndrome G89.4 Active 210689698 Problem group home current use of anticoagulant Z79.01 Active 295948616 Problem Essential hypertension I10 Active 06430834 Problem Gastroesophageal reflux disease without esophagitis K21.9 Active 843898791 Problem Chronic obstructive pulmonary disease, unspecified COPD type J44.9 Active 21049602 Problem 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 Active 501846775144865 Problem Primary insomnia F51.01 Active 9749039 Problem Oxygen desaturation during sleep G47.34 Active 585891612 Problem Right carpal tunnel syndrome G56.01 Active 812690687191098 Problem Diabetic polyneuropathy associated with type 2 diabetes mellitus E11.42 Active 96872182 Problem Depression, unspecified depression type F32.9 Active 70456582 ALLERGIES No Information ENCOUNTERS Encounter Location Date Diagnosis [facility] [address], [place] [address] Feb, [facility] [address], [place] [address] Feb, [facility] [address], [place] [address] Jan, [facility] [address], [place] [address] Jan, [facility] [address], [place] [address] Jan, [address] [id number] Jan, [facility] [address], [place] [address] Jan, [facility] [address], [place] [address] Jan, [facility] [address], [place] [address] Jan, Essential hypertension I10 [facility] [address], [place] [address] Jan, Chronic obstructive pulmonary disease, unspecified COPD type J44.9 [facility] [address], [place] [address] Jan, [facility] [address], [place] [address] Jan, [facility] [address], [place] [address] Jan, Type 2 diabetes mellitus with other diabetic kidney complication E11.29 ; Anemia in other chronic diseases classified elsewhere D63.8 ; Chronic obstructive pulmonary disease, unspecified COPD type J44.9 and BMI 60.0-69.9, adult Z68.44 [facility] [id number] [address] Jan, [facility] [id number] [place] [address] Jan, [facility] [id number] [id number] Jan, [facility] [id number] [place] [id number] Dec, [facility] [id number] [place] [id number] Dec, [facility] [id number] [place] [id number] Dec, Essential hypertension I10 ; Type 2 diabetes mellitus with other diabetic kidney complication E11.29 ; Depression, unspecified depression type F32.9 ; Supplemental oxygen dependent Z99.81 ; Chronic pain syndrome G89.4 ; Fibromyalgia M79.7 ; Carpal tunnel syndrome, bilateral G56.03 and Chronic kidney disease, stage 4 (severe) N18.4 [facility] [address] [place] [address] Dec, Essential hypertension I10 [facility] [id number] [place] [address] November, Type 2 diabetes mellitus with other diabetic kidney complication E11.29 [facility] [id number], [place] [address] November, Chronic pain syndrome G89.4 [facility] [address], [place] [address] November, [facility] [id number] [place] [address] November, [facility] [id number] [place] [address] November, [facility] [id number], [place] [address] Oct, Type 2 diabetes mellitus with other diabetic kidney complication E11.29 [facility] [address], [place] [address] Oct, Primary insomnia F51.01 [place] [address] [id number] [id number] Oct, Bilateral lower extremity edema R60.0 [facility] [address] [place] [address] Oct, [facility] [id number] [place] [address] Sep, Type 2 diabetes mellitus with other diabetic kidney complication E11.29 and Chronic obstructive pulmonary disease, unspecified COPD type J44.9 [facility] [address] [place] [address] 15 Aug, 2017 Type 2 diabetes mellitus with other diabetic kidney complication E11.29 [address] [place] [address] 12 Aug, 2017 Gastroesophageal reflux disease without esophagitis K21.9 ; oysterman current use of anticoagulant Z79.01 ; Chronic pain syndrome G89.4 ; Essential hypertension I10 and Type 2 diabetes mellitus with other diabetic kidney complication E11.29 [facility] [address], [place] [address] 08 Aug, 2017 Chronic pain syndrome G89.4 [facility] [address] [place] [address] Aug, Type 2 diabetes mellitus with other diabetic kidney complication E11.29 [facility] [address], [place] [address] Jul, Diabetic polyneuropathy associated with type 2 diabetes mellitus E11.42 [facility] [address] [place] [address] Jul, Primary insomnia F51.01 [facility] [address], [place] [address] Jul, [facility] [address], [place] [address] Jul, Type 2 diabetes mellitus with other diabetic kidney complication E11.29 and Chronic obstructive pulmonary disease, unspecified COPD type J44.9 [facility] [address] [place] [address] Jul, Type 2 diabetes mellitus with other diabetic kidney complication E11.29 [facility] [id number] [place] [address] Jun, Type 2 diabetes mellitus with other diabetic kidney complication E11.29 [facility] [id number] [place] [address] 27 Jun, 2017 [facility] [id number] [place] [address] Jun, Chronic obstructive pulmonary disease, unspecified COPD type J44.9 [facility] [id number] [place] [address] May, Type 2 diabetes mellitus with other diabetic kidney complication E11.29 [facility] [id number] [place] [address] May, oysterman current use of anticoagulant Z79.01 and Essential hypertension I10 [address] [place] [address] May, Anemia in other chronic diseases classified elsewhere D63.8 ; Chronic obstructive pulmonary disease, unspecified COPD type J44.9 ; Oxygen desaturation during sleep G47.34 ; Sleep apnea in adult G47.33 and Supplemental oxygen dependent Z99.81 [address] [place] [address] May, Type 2 diabetes mellitus with other diabetic kidney complication E11.29 ; Essential hypertension I10 ; Chronic pain syndrome G89.4 ; BMI 40.0- 44.9, adult Z68.41 ; Gastroesophageal reflux disease without esophagitis K21.9 ; group home current use of anticoagulant Z79.01 ; group home 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 ; Diabetic polyneuropathy associated with type 2 diabetes mellitus E11.42 ; Edema of both legs R60.0 and Supplemental oxygen dependent Z99.81 [facility] [id number] [place] [address] May, [facility] [id number] [place] [address] May, Essential hypertension I10 and Gastroesophageal reflux disease without esophagitis K21.9 [facility] [address] [address] May, [facility] [address] [address] May, Type 2 diabetes mellitus with other diabetic kidney complication E11.29 and group home current use of anticoagulant Z79.01 [facility] [id number] [place] [address] Apr, Chronic pain syndrome G89.4 and Essential hypertension I10 [facility] [id number] [place] [address] Apr, Type 2 diabetes mellitus with other diabetic kidney complication E11.29 [facility] [id number] [place] [address] Apr, Type 2 diabetes mellitus with other diabetic kidney complication E11.29 [facility] [id number] [place] [address] Apr, Essential hypertension I10 [facility] [id number] [place] [address] Apr, Gastroesophageal reflux disease without esophagitis K21.9 [facility] [id number] [place] [address] Apr, Type 2 diabetes mellitus with other diabetic kidney complication E11.29 [facility] [id number] [place] [address] Apr, Type 2 diabetes mellitus with other diabetic kidney complication E11.29 and oysterman current use of anticoagulant Z79.01 [facility] [address], [place] [address] 27 Mar, 2017 Encounter for immunization Z23 and Preoperative examination Z01.818 [facility] [id number] [place] [address] Mar, [facility] [id number] [place] [address] Mar, Type 2 diabetes mellitus with other diabetic kidney complication E11.29 [facility] [id number] [place] [address] 08 Mar, 2017 Type 2 diabetes mellitus with other diabetic kidney complication E11.29 [facility] [id number] [place] [address] Mar, Gastroesophageal reflux disease without esophagitis K21.9 [facility] [id number] [place] [address] Mar, Essential hypertension I10 [facility] [id number] [place] [address] Feb, oysterman current use of anticoagulant Z79.01 [facility] [id number] [place] [address] Feb, Type 2 diabetes mellitus with other diabetic kidney complication E11.29 [facility] [id number] [place] [address] Feb, Type 2 diabetes mellitus with other diabetic kidney complication E11.29 [facility] [id number] [place] [address] Feb, Type 2 diabetes mellitus with other diabetic kidney complication E11.29 [facility] [id number] [place] [address] Feb, Gastroesophageal reflux disease without esophagitis K21.9 [facility] [id number] [place] [address] 03 Aug, 2017 Type 2 diabetes mellitus with other diabetic kidney complication E11.29 [facility] [address], [place] [address] Feb, group home current use of anticoagulant Z79.01 [facility] [address], [place] [address] Jan, Type 2 diabetes mellitus with other diabetic kidney complication E11.29 [facility] [id number] [place] [address] Jan, Type 2 diabetes mellitus with other diabetic kidney complication E11.29 [facility] [address], [place] [address] Jan, Chronic pain syndrome G89.4 [facility] [id number], [place] [address] Jan, [facility] [id number] [place] [address] Jan, [facility] [address], [place] [address] Jan, [facility] [id number] [place] [address] Jan, [facility] [address], [place] [address] Jan, Primary insomnia F51.01 ; Type 2 diabetes mellitus with other diabetic kidney complication E11.29 ; Chronic pain syndrome G89.4 and Essential hypertension I10 [facility] [address], [place] [address] Jan, Primary insomnia F51.01 [facility] [id number] [place] [address] Jan, Type 2 diabetes mellitus with other diabetic kidney complication E11.29 [facility] [address], [place] [address] Jan, [facility] [address] [place] [address] Jan, 2017 Chronic obstructive pulmonary disease, unspecified COPD type J44.9 [facility] [id number] [place] [address] Jan, Essential hypertension I10 ; Type 2 [...] type 2 diabetes mellitus E11.42 [facility] [id number] [place] [address] Jan, Gastroesophageal reflux disease without esophagitis K21.9 [facility] [id number] [place] [address] Dec, [facility] [id number] [place] [address] Dec, [facility] [id number] [place] [address] Dec, oysterman current use of anticoagulant Z79.01 ; Chronic pain syndrome G89.4 and Essential hypertension I10 [facility] [id number] [address] Dec, [facility] [id number] [place] [address] Dec, Type 2 diabetes mellitus with other diabetic kidney complication E11.29 [facility] [address], [place] [address] Dec, [facility] [id number] [place] [address] Dec, Gastroesophageal reflux disease without esophagitis K21.9 [facility] [id number] [place] [address] 24 May, 2017 Type 2 diabetes mellitus with other diabetic kidney complication E11.29 [facility] [address], [place] [address] November, [facility] [address] [place] [address] November, Type 2 diabetes mellitus with other diabetic kidney complication E11.29 [facility] [address] [place] [address] November, [facility] [address] [place] [address] November, Type 2 diabetes mellitus with other diabetic kidney complication E11.29 [facility] [id number] [place] [address] November, [facility] [id number] [place] [address] Oct, Essential hypertension I10 [facility] [id number] [place] [address] Oct, Psoriasis of scalp L40.9 [facility] [id number] [place] [address] Oct, Essential hypertension I10 and Chronic pain syndrome G89.4 [facility] [address] [place] [address] Oct, [facility] [address] [place] [address] Sep, Type 2 diabetes mellitus with other diabetic kidney complication E11.29 [facility] [address], [place] [address] Sep, [facility] [id number] [place] [address] Sep, Type 2 diabetes mellitus with other diabetic kidney complication E11.29 [facility] [address], [place] [address] Sep, Type 2 diabetes mellitus with other diabetic kidney complication E11.29 [facility] [id number] [place] [address] 09 Sep, 2017 Type 2 diabetes mellitus with other diabetic kidney complication E11.29 ; Chronic kidney disease, stage 4 (severe) N18.4 ; Chronic obstructive pulmonary disease, unspecified COPD type J44.9 ; Iron deficiency anemia due to chronic blood loss D50.0 ; group home current use of anticoagulant Z79.01 ; Gastroesophageal reflux disease without esophagitis K21.9 ; Essential hypertension I10 ; Primary insomnia F51.01 ; Depression, unspecified depression type F32.9 ; Chronic pain syndrome G89.4 ; Wrist pain, right M25.531 ; Paresthesia of right upper extremity R20.2 and Psoriasis of scalp L40.9 [facility] [id number] [place] [address] Sep, [address] [address] Aug, Essential hypertension I10 [facility] [address] [address] Aug, History of DVT (deep vein thrombosis) Z86.718 [facility] [id number] [place] [address] Aug, [facility] [id number] [place] [address] Jul, [facility] [id number] [place] [address] Jul, [facility] [id number] [place] [address] Jul, oysterman current use of anticoagulant Z79.01 ; Chronic pain syndrome G89.4 and Chronic kidney disease, stage 4 (severe) N18.4 [facility] [id number] [place] [address] Jul, [facility] [address] [address] Jul, [facility] [address], [place] [address] Jul, [facility] [address] [place] [address] Jul, [facility] [address], [place] [address] Jul, [facility] [id number] [place] [address] Jul, Type 2 diabetes mellitus with other diabetic kidney complication E11.29 [facility] [id number] [place] [address] Jul, History of DVT (deep vein thrombosis) Z86.718 [facility] [address] [place] [address] Jun, [facility] [id number] [place] [address] Jun, History of DVT (deep vein thrombosis) Z86.718 [place] [id number] [place] [address] 15 Jun, 2016 Post traumatic stress disorder (PTSD) F43.10 [address], [place] [address] 07 Jun, 2016 Type 2 diabetes mellitus [...] Right wrist pain M25.531 [facility] [id number] [place] [address] May, [facility] [id number] [place] [address] May, [facility] [address] [address] May, [facility] [id number] [place] [address] May, [facility] [id number] [place] [address] May, Anemia in other chronic diseases classified elsewhere D63.8 [facility] [address] [address] May, [facility] [id number] [place] [address] Apr, [facility] [id number] [place] [address] 27 Mar, 2016 Dermatofibroma D23.9 [facility] [id number] [place] [address] 20 Mar, 2016 [facility] [id number] [place] [address] 14 Mar, 2016 Chronic pain syndrome G89.4 [facility] [id number] [place] [address] 09 Mar, 2016 [facility] [id number] [place] [address] 07 Mar, 2016 [facility] [id number] [place] [address] 06 Mar, 2016 [facility] [address] [place] [address] Feb, [facility] [address], [place] [address] Feb, [facility] [address], [place] [address] Feb, [facility] [address] [place] [address] Feb, [facility] [id number] [place] [address] Feb, [facility] [id number] [place] [address] Feb, [facility] [id number] [place] [address] Feb, Type 2 diabetes mellitus with other diabetic kidney complication E11.29 ; Diabetic polyneuropathy associated with type 2 diabetes mellitus E11.42 ; Iron deficiency anemia due to chronic blood loss D50.0 ; Chronic obstructive pulmonary disease, unspecified COPD type J44.9 ; group home current use of anticoagulant Z79.01 ; [...] (severe) N18.4 [facility] [address], [place] [address] Feb, Skin tags, multiple acquired L91.8 [facility] [id number] [place] [address] Jan, [facility] [address] [place] [id number] Jan, Dental examination Z01.20 [facility] [id number] [place] [address] Jan, [facility] [address] [place] [address] Jan, Type 2 diabetes mellitus with other [...] Renal failure, chronic, stage 4 (severe) N18.4 [place] [id number] [place] [address] Dec, Diabetes type 2, uncontrolled E11.65 [facility] [id number] [place] [address] Dec, [place] [id number] [place] [address] Dec, Type 2 diabetes mellitus with other [...] and Depression, unspecified depression type F32.9 [facility] [address] [id number] [id number] Dec, Dental caries K02.9 [facility] [id number] [place] [id number] Dec, [facility] [address] [id number] [id number] Dec, Dental examination Z01.20 [facility] [address] [id number] [id number] November, Dental examination Z01.20 and Dental caries K02.9 [facility] [address] [id number] [id number] Oct, [facility] [id number] [place] [id number] Oct, [facility] [id number] [place] [id number] Sep, [facility] [id number] [place] [id number] Sep, [facility] [id number] [place] [phone] Sep, [facility] [id number] [place] [address] [id number] Sep, Other chronic pain 338.29 [facility] [address] [id number] [place] [address] [id number] Aug, Diabetes type 2, uncontrolled E11.65 and Morbid obesity due to excess calories E66.01 [facility] [address] [id number] [place] [address] [id number] Aug, Hair loss L65.9 [facility] [address] [id number], [place] [id number] Aug, [facility] [address] [id number] [place] [address] [id number] Jul, [facility] [address] [id number], [place] [id number] Jul, [facility] [address] [id number] [place] [address] [id number] Jun, [facility] [address] [id number] [place] [address] [id number] Jun, Hair loss L65.9 and Disorder of the skin and subcutaneous tissue, unspecified L98.9 [facility] [id number] [place] [address] [id number] May, Type 2 diabetes mellitus with other diabetic kidney complication E11.29 ; Type 2 diabetes mellitus with hyperglycemia E11.65 ; Morbid obesity due to excess calories E66.01 and Essential hypertension I10 [facility] [id number] [place] [address] [id number] May, Diabetes type 2, uncontrolled E11.65 ; Encounter for immunization Z23 and Morbid obesity due to excess calories E66.01 [facility] [id number] [place] [address] [id number] May, [facility] [address] [address] Apr, [address] [id number] Apr, Hyperglycemia R73.[address] [id number] Apr, [address] [id number] Apr, Depression F32.9 ; Encounter for immunization Z23 ; Hyperglycemia R73.9 and Anemia in other chronic diseases classified elsewhere D63.8 [facility] [place] [id number] [place] [address] [id number] Mar, [id number] [place] [address] [id number] Feb, Positive occult stool blood test 792.1 [id number] [place] [address] [id number] Feb, Depression 311 ; Other chronic pain 338.29 and Diabetes with renal manifestations, type II or unspecified type, not stated as uncontrolled 250.40 [facility] [id number] [place] [address] Feb, Occult blood in stools 792.1 [id number] [place] [address] [id number] Feb, Anemia 285.9 ; Occult blood positive stool 792.1 ; Unspecified essential hypertension 401.9 and Other chronic pain 338.29 [facility] [id number], [place] [id number] Feb, [facility] [id number] [place] [address] [id number] Feb, Anemia 285.9 [facility] [place] [id number] [place] [address] [id number] Feb, [facility] [id number] [place] [address] [id number] Feb, [facility] [id number] [place] [address] [id number] Feb, Diabetes with renal manifestations, type II or unspecified type, not stated as uncontrolled 250.40 ; Other chronic pain 338.29 ; Unspecified essential hypertension 401.9 ; Anemia 285.9 and Depression 311 [facility] [id number] [place] [address] [id number] Jan, [facility] [id number] [place] [address] [id number] Jan, Anemia 285.9 and Follow up V67.9 [facility] [id number] [place] [address] [id number] Jan, [facility] [id number] [place] [address] [id number] Jan, [facility] [id number] [place] [address] [id number] Jan, [facility] [id number] [place] [address] [id number] Dec, [facility] [id number] [place] [address] Oct, [facility] [id number] [place] [address] Oct, [facility] [id number] [place] [address] Sep, [facility] [address] [id number] [id number] Sep, [facility] [id number] [place] [address] Sep, [facility] [place] [address] [id number] [place] [id number] Aug, [facility] [place] [facility] [address] [facility] [id number], [place] [address] Aug, [facility] [place] [facility] [address] [facility] [id number] [place] [address] Aug, [facility] [place] [address] [id number], [place] [id number] Aug, [facility] [place] [facility] [address] [facility] [id number] [place] [address] Aug, [facility] [place] [facility] [address] [facility] [id number], [place] [address] Aug, [facility] [place] [address] [facility] [id number], [place] [id number] Aug, [facility] [place] [facility] [address]00565100[place], [place] [address] Aug, [facility] [place] [address] [facility] [id number], [place] [id number] Jul, [facility] [place] [facility] [address]00565100[place], [place] [address] Jul, [facility] [place] [facility] [address] [facility] [id number], [place] [address] Jul, [facility] [place] [address] [facility] [id number], [place] [id number] Jul, [facility] [place] [facility] [address] [facility] [id number], [place] [address] Jul, [facility] [place] [address] [facility] [id number], [place] [id number] Jul, [facility] [place] [facility] [address] [facility] [id number], [place] [address] Jul, [facility] [place] [address] [id number], [place] [id number] Jun, [facility] [place] [address] [facility] [id number], [place] [id number] Jun, [facility] [place] [facility] [address] [facility] [id number], [place] [address] Jun, [facility] [place] [facility] [address] [facility] [id number], [place] [address] Jun, [facility] [place] [address] [facility] [id number], [place] [id number] Jun, [facility] [place] [facility] [address] [facility] [id number], [place] [address] Jun, [facility] [place] [address] [facility] [id number], [place] [id number] May, [facility] [place] [facility] [address] [facility] [id number], [place] [address] May, [facility] [place] [facility] [address]00565100[place], [place] [address] May, [facility] [place] [address] [facility] [id number], [place] [id number] Apr, [facility] [place] [facility] [address] [facility] [id number], [place] [address] Apr, [facility] [place] [address] [facility] [id number], [place] [id number] Apr, [facility] [place] [address] [facility] [id number], [place] [id number] Apr, [facility] [place] [facility] [address] [facility] [id number], [place] [address] Apr, [facility] [place] [facility] [address] [facility] [id number], [place] [address] Apr, [facility] [place] [address] [facility] [id number], [place] [id number] Mar, [facility] [place] [facility] [address] [facility] [id number], [place] [address] Mar, [facility] [place] [address] [facility] [id number], [place] [id number] Mar, [facility] [place] [facility] [address] [id number], [place] [address] Mar, [facility] [place] [address] [id number] [place] [id number] Mar, [facility] [place] [facility] [address] [facility] [id number] [place] [address] Mar, [facility] [place] [address] [id number] [place] [id number] Mar, [facility] [place] [facility] [address] [facility] [id number] [place] [address] Mar, [facility] [place] [address] [id number] [place] [id number] Mar, [facility] [place] [facility] [address] [facility] [id number], [place] [address] Mar, [facility] [place] [address] [facility] [id number], [place] [id number] Feb, [facility] [place] [facility] [address] [facility] [id number], [place] [address] Feb, [facility] [place] [address] [facility] [id number], [place] [id number] Jan, [facility] [place] [facility] [address] [facility] [id number], [place] [address] Jan, [facility] [place] [address] [facility] [id number], [place] [id number] Jan, [facility] [place] [facility] [address] [facility] [id number], [place] [address] Jan, [facility] [place] [address] [facility] [id number], [place] 082198724 Jan, [facility] [place] [facility] [address] [facility] [id number] [place] [address] Jan, [facility] [place] [facility] [address] [facility] [id number], [place] [address] Dec, [facility] [place] [facility] [address] [facility] [id number], [place] [address] Dec, [facility] [place] [address] [id number] [place] [id number] November, [facility] [place] [facility] [address] [id number] [place] [address] November, [facility] [place] [address] [id number] [place] [id number] November, [facility] [place] [facility] [address] [id number] [place] [address] November, [facility] [place] [address] [id number] [place] [id number] Oct, [facility] [place] [facility] [address] [id number] [place] [address] Oct, [facility] [place] [facility] [address] [facility] [id number] [place] [address] Oct, [facility] [place] [facility] [address] [facility] [id number] [place] [address] Oct, [facility] [place] [facility] [address] [facility] [id number], [place] [address] Oct, [facility] [place] [facility] [address] [facility] [id number] [place] [address] Oct, [facility] [place] [address] [id number], [place] 425898082 Sep, [facility] [place] [address] [id number], [place] [id number] Sep, [facility] [place] [facility] [address] [id number], [place] [address] Sep, [facility] [place] [facility] [address] [id number] [place] [address] Sep, [facility] [place] [address] [id number] [place] [id number] Sep, [facility] [place] [facility] [address] [facility] [id number] [place] [address] Sep, [facility] [place] [facility] [address] [id number], [place] [address] Aug, [facility] [place] [facility] [address] [facility] [id number], [place] [address] Aug, [facility] [place] [address] [facility] [id number], [place] [id number] Aug, [facility] [place] [address] [facility] [id number] [place] [id number] Aug, [facility] [place] [facility] [address] [facility] [id number], [place] [address] Aug, [facility] [place] [address] [facility] [id number] [place] [id number] Aug, [facility] [place] [facility] [address]00565100[place], [place] [address] Aug, [facility] [place] [id number], [place] [id number] Aug, [facility] [place] [facility] [address]00565100[place], [place] [address] Aug, [facility] [place] [address] [id number], [place] [id number] Aug, [facility] [place] [facility] [address]00565100[place], [place] [address] Aug, [facility] [place] [address] [id number], [place] 341427807 Aug, [facility] [place] [facility] [address]00565100[place], [place] [address] Aug, [facility] [place] [facility] [address] [id number], [place] [address] Jul, [facility] [place] [address] [facility] [id number], [place] [id number] Jun, [facility] [place] [facility] [address] [id number], [place] [address] Jun, [facility] [place] [facility] [address]00565100[place], [place] [address] Jun, [facility] [place] [facility] [address] [id number] [place] [address] Jun, [facility] [place] [address] [id number], [place] [id number] Jun, [facility] [place] [facility] [address] [facility] [id number] [place] [address] Jun, [facility] [place] [facility] [address] [id number] [place] [address] Jun, [facility] [place] [address] [facility] [id number] [place] [id number] Jun, [facility] [place] [facility] [address] [id number], [place] [address] Jun, [facility] [place] [facility] [address] [facility] [id number], [place] [address] May, [facility] [place] [address] [id number], [place] [id number] May, [facility] [place] [facility] [address] [facility] [id number], [place] [address] May, [facility] [place] [facility] [address] [facility] [id number], [place] [address] May, [facility] [place] [facility] [address] [facility] [id number], [place] [address] May, [facility] [place] [facility] [address] [facility] [id number], [place] [address] May, [facility] [place] [address] [facility] [id number], [place] 044310238 May, [facility] [place] [facility] [address] [facility] [id number], [place] [address] May, [facility] [place] [address] [facility] [id number], [place] [id number] May, [facility] [place] [facility] [address] [facility] [id number], [place] [address] May, [facility] [place] [address] [facility] [id number], [place] [id number] Apr, [facility] [place] [facility] [address] [facility] [id number], [place] [address] Apr, [facility] [place] [facility] [address] [facility] [id number], [place] [address] Apr, [facility] [place] [address] [facility] [id number], [place] [id number] Apr, [facility] [place] [facility] [address] [facility] [id number], [place] [address] Apr, [facility] [place] [facility] [address] [facility] [id number], [place] [address] Apr, [facility] [place] [id number], [place] 030919464 Apr, [facility] [place] [facility] [address]00565100[place], [place] [address] Apr, [facility] [place] [facility] [address]00565100[place], [place] [address] Apr, [facility] [place] [facility] [address]00565100[place], [place] [address] Apr, [facility] [place] [address]00565100[place], [place] 568100832 Apr, [facility] [place] [facility] [address] [facility] [id number], [place] [address] Apr, [facility] [place] [address] [facility] [id number], [place] 067203226 Apr, [facility] [place] [facility] [address] [facility] [id number], [place] [address] Apr, [facility] [place] [address] [facility] [id number], [place] 642687582 Apr, [facility] [place] [facility] [address] [facility] [id number], [place] [address] Apr, [facility] [place] [facility] [address] [facility] [id number], [place] [address] Apr, [facility] [address] [facility] [id number], [place] [address] Apr, [facility] [place] [address] [id number] [place] [id number] Apr, [facility] [address] [facility] [id number], [place] [address] Mar, [facility] [address] [facility] [id number], [place] [address] Mar, [facility] [place] [address] [id number] [place] [id number] Mar, [facility] [place] [address] [id number] [place] [id number] Mar, [facility] [place] [address] [id number] [place] [id number] Mar, [facility] [place] [address] [id number] [place] [id number] Feb, [facility] [place] [address] [id number] [place] [id number] Feb, [facility] [place] [address] [id number] [place] [id number] Feb, [facility] [address] [facility] [id number], [place] [address] Feb, [facility] [place] [address] [id number] [place] [id number] Feb, [facility] [place] [address] [id number] [place] [id number] Feb, [facility] [place] [address] [id number] [place] [id number] Feb, [facility] [place] [address] [id number] [place] [id number] Feb, [facility] [place] [address] [id number] [place] [id number] Feb, [facility] [place] [address] [id number] [place] 229610703 Jan, [facility] [place] [address] [id number] [place] 187926621 Jan, [facility] [place] [address] [id number] [place] 317275330 Jan, [facility] [place] [address] [id number] [place] 012026093 Jan, [facility] [place] [address] [id number] [place] 127297341 Jan, [facility] [id number] [place] [address] Jan, [facility] [place] [address] [id number] [place] 280171208 Jan, [facility] [place] [address] [id number] [place] 465670115 Jan, [facility] [place] [address] [id number] [place] [id number] Dec, [facility] [place] [address] [id number] [place] 407913719 November, [facility] [place] [address] [id number] [place] 089012441 November, [facility] [place] [address] [id number] [place] 819085519 November, [facility] [place] [address] [id number] [place] [id number] November, [facility] [place] [address] [id number] [place] 964442839 November, [facility] [place] [address] [id number] [place] [id number] November, [facility] [place] [address] [id number] [place] 814277539 Jul, [facility] [place] [address] [id number] [place] [id number] Jul, [facility] [place] [address] [id number] [place] [id number] Jul, [facility] [place] [address] [id number] [place] [id number] Jun, [facility] [address]00565[address], [place] [address] Jun, [facility] [place] [address] [id number], [place] 536017920 May, [facility] [place] [facility] [address] [facility] [id number], [place] [address] May, [facility] [place] [address] [id number], [place] 674315606 May, [facility] [place] [facility] [address] [facility] [id number], [place] [address] May, [facility] [place] [address] [id number], [place] 525696399 May, [facility] [place] [facility] [address] [facility] [id number], [place] [address] May, [facility] [place] [address] [id number], [place] 860537302 Apr, [facility] [place] [facility] [address]00565100[place], [place] [address] Apr, [facility] [place] [facility] [address] [facility] [id number], [place] [address] Apr, [facility] [place] [address] [id number], [place] 535895363 Apr, [facility] [place] [address] [id number], [place] 908922644 Apr, [facility] [place] [facility] [address]00565100[place], [place] [address] Apr, [facility] [place] [facility] [address] [facility] [id number], [place] [address] Apr, [facility] [place] [address] [id number][place] [id number] Apr, [facility] [place] [facility] [address] [facility] [id number], [place] [address] Apr, [facility] [place] [address] [id number][place] [id number] Apr, [facility] [place] [address] [id number] [place] [address] [place] [id number] Apr, [facility] [place] [address] [id number] [place] [id number] Mar, [facility] [place] [address] [id number] [place] [id number] Feb, [facility] [place] [address] [id number] [place] [id number] Jan, [facility] [place] [address] [id number] [place] [id number] Dec, [facility] [place] [address] [id number] [place] [id number] Dec, [facility] [place] [address] [id number] [place] [id number] Dec, [facility] [place] [address] [id number] [place] [id number] Dec, [facility] [place] [address] [id number] [place] [id number] Dec, [facility] [place] [address] [id number] [place] [id number] November, [facility] [place] [address] [id number] [place] [id number] November, [facility] [place] [address] [id number] [place] [id number] November, [facility] [address] [facility] [id number], [place] [address] November, [facility] [place] [address] [id number] [place] [id number] November, [facility] [place] [address] [id number] [place] [id number] November, [facility] [place] [address] [id number] [place] [id number] Oct, [facility] [place] [address] [id number] [place] [id number] Oct, [facility] [place] [address] [id number] [place] [id number] Oct, [facility] [place] [address] [id number] [place] [id number] Oct, [facility] [place] [address] [id number] [place] [id number] Oct, [facility] [place] [address] [id number] [place] [id number] Oct, [facility] [place] [address] [id number] [place] [id number] Sep, [facility] [place] [address] [id number] [place] [id number] Aug, [facility] [place] [address] [id number] [place] [id number] Aug, [facility] [place] [address] [id number] [place] [id number] Jul, [facility] [place] [facility] [address] [facility] [id number], [place] [address] Jun, [facility] [place] [facility] [address] [id number], [place] [address] Jun, [facility] [place] [facility] [address]65[address], [place] [address] Jun, [facility] [place] [facility] [address]65[address], [place] [address] Jun, [facility] [place] [facility] [address], [place] [address] May, [facility] [place] [facility] [address]65[address], [place] [address] May, [facility] [place] [facility] [address]65[address], [place] [address] Apr, [facility] [place] [facility] [address] [id number], [place] [address] Apr, [facility] [place] [facility] [address]65[address], [place] [address] Apr, [facility] [place] [facility] [address]65[address], [place] [address] Feb, [facility] [place] [facility] [id number] [place] [address] 15 Aug, 2010 [facility] [address] [id number] [place] [address] 18 Jul, 2010 [facility] [place] [facility] [address] [id number] [place] [address] 30 Jun, 2010 [facility] [address] [id number] [place] [address] 29 May, 2010 [facility] [place] [facility] [address] [id number] [place] [address] May, [facility] [address] [id number] [place] [address], [place] [address] May, [facility] [address] [facility] [id number] [place] [address] May, [facility] [address] [facility] [id number] [place] [address] May, [facility] [address] [id number] [place] [address] 16 Aug, 2009 [facility] [address] [facility] [id number] [place] [address] Jun, [facility] [address] [facility] [id number] [place] [address] Jun, [facility] [place] [facility] [address] [facility] [id number] [place] [address] Jun, [facility] [address] [id number], [place] [address] 24 May, 2009 [facility] [place] [facility] [address] [id number] [place] [address] 28 Apr, 2009 [facility] [place] [facility] [address] [facility] [id number] [place] [address] Apr, [facility] [address] [facility] [id number], [place] [address] Apr, [facility] [address] [facility] [id number] [address] Jan, [facility] [address] [facility] [id number], [place] [address] Oct, [facility] [address] [facility] [id number], [place] [address] May, [facility] [address] [facility] [id number], [place] [address] May, IMMUNIZATIONS No Known Immunizations SOCIAL HISTORY Never Assessed REASON FOR VISIT change Advair to Breo per Alf PLAN OF CARE VITAL SIGNS MEDICATIONS Medication Instructions Dosage Frequency Start Date End Date Duration Status Breo Ellipta 100-25 MCG/INH Inhalation Once a day 1 puff 24h Jan, Active RESULTS No Results PROCEDURES No [...] Dialysis [facility] 2012 -Dr. Simon now [facility] Medical History Colonoscopy (polyps 2 ) [...]
--- OUTSIDE RECORDS SUMMARY | 2018-12-28 18:01 | XMS REPORT ---
Author Author JETHRO SHETH [facility] Address [address] [place] [address] Care Team Providers Care Frame Stripper Name Role Phone JETHRO SHETH Unavailable PROBLEMS Type Condition ICD9-CM Code RNS64-ME Code Onset Dates Condition Status SNOMED Code Problem Chronic kidney disease, stage 4 (severe) N18.4 Active 511693819 Problem Psoriasis of scalp L40.9 Active 484083485 Problem Type 2 diabetes mellitus with hyperglycemia E11.65 Active 524111415945194 Problem Fibromyalgia M79.7 Active 978161630 Problem History of DVT (deep vein thrombosis) Z86.718 Active 054153314 Problem Carpal tunnel syndrome, bilateral G56.03 Active 89500152076355620 Problem Type 2 diabetes mellitus with other diabetic kidney complication E11.29 Active 118116733 Problem Anemia in other chronic diseases classified elsewhere D63.8 Active 105576542 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 Active 022899780 Problem Paresthesia of right upper extremity R20.2 Active 97852981 Problem Bilateral lower extremity edema R60.0 Active 892004101 Problem Supplemental oxygen dependent Z99.81 Active 010938606481 Problem Sleep apnea in adult G47.33 Active 23312567 Problem Chronic pain syndrome G89.4 Active 878569266 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 Active 302435053 Problem Essential hypertension I10 Active 21607920 Problem Gastroesophageal reflux disease without esophagitis K21.9 Active 036034004 Problem Chronic obstructive pulmonary disease, unspecified COPD type J44.9 Active 86030998 Problem 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 Active 272430278903518 Problem Primary insomnia F51.01 Active 0453606 Problem Oxygen desaturation during sleep G47.34 Active 650952116 Problem Right carpal tunnel syndrome G56.01 Active 732277899984911 Problem Diabetic polyneuropathy associated with type 2 diabetes mellitus E11.42 Active 96500681 Problem Depression, unspecified depression type F32.9 Active 72833393 ALLERGIES Substance Reaction Event Type Date Status Sulfamethoxazole-Trimethoprim hives Drug Allergy Jan, Active Penicillin V Potassium anaphylaxis Drug Allergy Jan, Active plastic tape rash Non Drug Allergy Jan, Active ENCOUNTERS Encounter Location Date Diagnosis [facility] [address] [address] Feb, [facility] [address], [place] [address] Feb, [facility] [address], [place] [address] Jan, [facility] [id number] [place] [address] Jan, [facility] [address], [place] [address] Jan, [facility] [id number] [place] [id number] Jan, [facility] [address], [place] [address] Jan, [facility] [address], [place] [address] Jan, [facility] [address], [place] [address] Jan, Essential hypertension I10 [facility] [address], [place] [address] Jan, Chronic obstructive pulmonary disease, unspecified COPD type J44.9 [facility] [address], [place] [address] Jan, [facility] [address], [place] [address] Jan, [facility] [id number] [address] Jan, Type 2 diabetes mellitus with other diabetic kidney complication E11.29 ; Anemia in other chronic diseases classified elsewhere D63.8 ; Chronic obstructive pulmonary disease, unspecified COPD type J44.9 and BMI 60.0-69.9, adult Z68.44 [facility] [id number] [place] [address] Jan, [facility] [id number] [place] [address] Jan, [facility] [id number] [place] [id number] Jan, [facility] [id number] [place] [id number] Dec, [facility] [id number] [place] [id number] Dec, [facility] [id number] [place] [id number] Dec, Essential hypertension I10 ; Type 2 diabetes mellitus with other diabetic kidney complication E11.29 ; Depression, unspecified depression type F32.9 ; Supplemental oxygen dependent Z99.81 ; Chronic pain syndrome G89.4 ; Fibromyalgia M79.7 ; Carpal tunnel syndrome, bilateral G56.03 and Chronic kidney disease, stage 4 (severe) N18.4 [facility] [id number] [place] [address] Dec, Essential hypertension I10 [facility] [id number] [place] [address] November, Type 2 diabetes mellitus with other diabetic kidney complication E11.29 [facility] [id number] [place] [address] November, Chronic pain syndrome G89.4 [facility] [id number] [place] [address] November, [facility] [id number] [place] [address] November, [facility] [id number] [place] [address] November, [facility] [address], [place] [address] Oct, Type 2 diabetes mellitus with other diabetic kidney complication E11.29 [facility] [address] [place] [address] Oct, Primary insomnia F51.01 [facility] [id number] [place] [id number] Oct, Bilateral lower extremity edema R60.0 [facility] [id number] [place] [address] Oct, [facility] [id number] [place] [address] Sep, Type 2 diabetes mellitus with other diabetic kidney complication E11.29 and Chronic obstructive pulmonary disease, unspecified COPD type J44.9 [facility] [id number] [place] [address] Aug, Type 2 diabetes mellitus with other diabetic kidney complication E11.29 [facility] [id number] [place] [address] Aug, Gastroesophageal reflux disease without esophagitis K21.9 ; 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 ; Chronic pain syndrome G89.4 ; Essential hypertension I10 and Type 2 diabetes mellitus with other diabetic kidney complication E11.29 [facility] [address] [place] [address] 08 Aug, 2017 Chronic pain syndrome G89.4 [facility] [id number] [place] [address] Aug, Type 2 diabetes mellitus with other diabetic kidney complication E11.29 [facility] [id number] [place] [address] Jul, Diabetic polyneuropathy associated with type 2 diabetes mellitus E11.42 [facility] [address], [place] [address] Jul, Primary insomnia F51.01 [facility] [address] [place] [address] Jul, [facility] [id number] [place] [address] Jul, Type 2 diabetes mellitus with other diabetic kidney complication E11.29 and Chronic obstructive pulmonary disease, unspecified COPD type J44.9 [facility] [id number] [place] [address] Jul, Type 2 diabetes mellitus with other diabetic kidney complication E11.29 [facility] [id number] [place] [address] Jun, Type 2 diabetes mellitus with other diabetic kidney complication E11.29 [facility] [id number] [place] [address] 27 Jun, 2017 [facility] [id number] [place] [address] Jun, Chronic obstructive pulmonary disease, unspecified COPD type J44.9 [facility] [id number] [place] [address] May, Type 2 diabetes mellitus with other diabetic kidney complication E11.29 [facility] [address] [place] [address] May, retirement current use of anticoagulant Z79.01 and Essential hypertension I10 [address] [id number] [place] [address] May, Anemia in other chronic diseases classified elsewhere D63.8 ; Chronic obstructive pulmonary disease, unspecified COPD type J44.9 ; Oxygen desaturation during sleep G47.34 ; Sleep apnea in adult G47.33 and Supplemental oxygen dependent Z99.81 [facility] [address] [place] [address] May, Type 2 diabetes mellitus with other [...] legs R60.0 and Supplemental oxygen dependent Z99.81 [facility] [id number] [place] [address] May, [facility] [address] [address] May, Essential hypertension I10 and Gastroesophageal reflux disease without esophagitis K21.9 [facility] [address] [address] May, [facility] [id number] [place] [address] May, Type 2 diabetes mellitus with other diabetic kidney complication E11.29 and 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 [facility] [id number] [place] [address] Apr, Chronic pain syndrome G89.4 and Essential hypertension I10 [facility] [address] [address] Apr, Type 2 diabetes mellitus with other diabetic kidney complication E11.29 [facility] [id number] [place] [address] Apr, Type 2 diabetes mellitus with other diabetic kidney complication E11.29 [facility] [id number] [place] [address] Apr, Essential hypertension I10 [facility] [id number] [place] [address] Apr, Gastroesophageal reflux disease without esophagitis K21.9 [facility] [id number] [place] [address] Apr, Type 2 diabetes mellitus with other diabetic kidney complication E11.29 [facility] [address] [place] [address] Apr, Type 2 diabetes mellitus with other diabetic kidney complication E11.29 and retirement current use of anticoagulant Z79.01 [facility] [address] [address] 27 Mar, 2017 Encounter for immunization Z23 and Preoperative examination Z01.818 [facility] [address] [address] Mar, [facility] [address] [address] Mar, Type 2 diabetes mellitus with other diabetic kidney complication E11.29 [facility] [address] [address] Mar, Type 2 diabetes mellitus with other diabetic kidney complication E11.29 [facility] [address] [address] Mar, Gastroesophageal reflux disease without esophagitis K21.9 [facility] [address] [address] Mar, Essential hypertension I10 [facility] [address] [address] Feb, retirement current use of anticoagulant Z79.01 [facility] [id number] [place] [address] Feb, Type 2 diabetes mellitus with other diabetic kidney complication E11.29 [facility] [id number] [place] [address] Feb, Type 2 diabetes mellitus with other diabetic kidney complication E11.29 [facility] [address] [address] Feb, Type 2 diabetes mellitus with other diabetic kidney complication E11.29 [facility] [id number] [place] [address] Feb, Gastroesophageal reflux disease without esophagitis K21.9 [facility] [address], [place] [address] Feb, Type 2 diabetes mellitus with other diabetic kidney complication E11.29 [facility] [address], [place] [address] Feb, retirement current use of anticoagulant Z79.01 [facility] [id number] [place] [address] Jan, Type 2 diabetes mellitus with other diabetic kidney complication E11.29 [facility] [address], [place] [address] Jan, Type 2 diabetes mellitus with other diabetic kidney complication E11.29 [facility] [address], [place] [address] Jan, Chronic pain syndrome G89.4 [facility] [id number] [address] Jan, [facility] [address], [place] [address] Jan, [facility] [address] [place] [address] Jan, [facility] [address], [place] [address] Jan, [facility] [address], [place] [address] Jan, Primary insomnia F51.01 ; Type 2 diabetes mellitus with other diabetic kidney complication E11.29 ; Chronic pain syndrome G89.4 and Essential hypertension I10 [facility] [address], [place] [address] Jan, Primary insomnia F51.01 [facility] [address], [place] [address] Jan, Type 2 diabetes mellitus with other diabetic kidney complication E11.29 [facility] [address] [address] Jan, [facility] [id number] [place] [address] Jan, Chronic obstructive pulmonary disease, unspecified COPD type J44.9 [facility] [id number] [place] [address] Jan, Essential hypertension I10 ; Type 2 diabetes mellitus with other diabetic kidney complication E11.29 ; Chronic obstructive pulmonary disease, unspecified COPD type J44.9 ; Chronic kidney disease, stage 4 (severe) N18.4 ; Right carpal tunnel syndrome G56.01 ; 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 ; retirement (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 and Diabetic polyneuropathy associated with type 2 diabetes mellitus E11.42 [facility] [id number] [place] [address] Jan, Gastroesophageal reflux disease without esophagitis K21.9 [facility] [id number] [place] [address] Dec, [facility] [id number] [place] [address] Dec, [facility] [id number] [place] [address] Dec, retirement current use of anticoagulant Z79.01 ; Chronic pain syndrome G89.4 and Essential hypertension I10 [facility] [id number] [place] [address] Dec, [facility] [id number] [place] [address] Dec, Type 2 diabetes mellitus with other diabetic kidney complication E11.29 [facility] [id number] [place] [address] Dec, [facility] [id number] [place] [address] Dec, Gastroesophageal reflux disease without esophagitis K21.9 [facility] [address], [place] [address] November, Type 2 diabetes mellitus with other diabetic kidney complication E11.29 [facility] [address] [place] [address] November, [facility] [id number] [place] [address] November, Type 2 diabetes mellitus with other diabetic kidney complication E11.29 [facility] [id number] [place] [address] November, [facility] [id number] [place] [address] November, Type 2 diabetes mellitus with other diabetic kidney complication E11.29 [facility] [id number] [place] [address] November, [facility] [id number] [place] [address] Oct, Essential hypertension I10 [facility] [id number] [place] [address] Oct, Psoriasis of scalp L40.9 [facility] [address] [place] [address] Oct, Essential hypertension I10 and Chronic pain syndrome G89.4 [facility] [address] [address] Oct, [facility] [address] [place] [address] Sep, Type 2 diabetes mellitus with other diabetic kidney complication E11.29 [facility] [address] [place] [address] Sep, [facility] [address], [place] [address] Sep, Type 2 diabetes mellitus with other diabetic kidney complication E11.29 [facility] [id number] [place] [address] 20 Sep, 2016 Type 2 diabetes mellitus with other diabetic kidney complication E11.29 [facility] [id number] [place] [address] 09 Sep, 2016 Type 2 diabetes mellitus [...] extremity R20.2 and Psoriasis of scalp L40.[address] [address] Sep, [place] [id number] [place] [address] 24 Aug, 2016 Essential hypertension I10 [address] [address] 22 Aug, 2016 History of DVT (deep vein thrombosis) Z86.718 [place] [id number] [place] [address] Aug, [facility] [id number] [place] [address] Jul, [facility] [id number] [place] [address] Jul, [address] [address] Jul, 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 ; Chronic pain syndrome G89.4 and Chronic kidney disease, stage 4 (severe) N18.[address] [place] [address] Jul, [facility] [address], [place] [address] Jul, [facility] [address], [place] [address] Jul, [facility] [address], [place] [address] Jul, [facility] [address] [place] [address] Jul, [facility] [address] [place] [address] Jul, Type 2 diabetes mellitus with other diabetic kidney complication E11.29 [facility] [address], [place] [address] Jul, History of DVT (deep vein thrombosis) Z86.718 [facility] [address], [place] [address] Jun, [facility] [address] [place] [address] Jun, History of DVT (deep vein thrombosis) Z86.718 [facility] [address] [address] 15 Jun, 2016 Post traumatic stress disorder (PTSD) F43.10 [facility] [address], [place] [address] 07 Jun, 2016 Type 2 diabetes mellitus with other diabetic kidney complication E11.29 ; Diabetic polyneuropathy associated with type 2 diabetes mellitus E11.42 ; Iron deficiency anemia due to chronic blood loss D50.0 ; Chronic obstructive pulmonary disease, unspecified COPD type J44.9 ; 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 [...] pain M79.641 and Right wrist pain M25.531 [facility] [id number] [place] [address] 28 May, 2016 [facility] [id number] [place] [address] May, [facility] [id number] [place] [address] May, [facility] [id number] [place] [address] May, [facility] [id number] [place] [address] May, Anemia in other chronic diseases classified elsewhere D63.8 [facility] [id number] [place] [address] May, [facility] [id number] [place] [address] Apr, [facility] [address] [place] [address] 27 Mar, 2016 Dermatofibroma D23.9 [facility] [id number] [place] [address] 20 Mar, 2016 [facility] [id number] [place] [address] 14 Mar, 2016 Chronic pain syndrome G89.4 [facility] [id number] [place] [address] 09 Mar, 2016 [facility] [id number] [place] [address] 07 Mar, 2016 [facility] [address] [address] Mar, [facility] [address], [place] [address] Feb, [facility] [address], [place] [address] Feb, [facility] [id number] [place] [address] Feb, [facility] [id number] [place] [address] Feb, [facility] [id number] [place] [address] Feb, [facility] [id number] [place] [address] Feb, [facility] [id number] [place] [address] Feb, Type 2 diabetes mellitus with other diabetic kidney complication E11.29 ; Diabetic polyneuropathy associated with type 2 diabetes mellitus E11.42 ; Iron deficiency anemia due to chronic blood loss D50.0 ; Chronic obstructive pulmonary disease, unspecified COPD type J44.9 ; 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 [...] Renal failure, chronic, stage 4 (severe) N18.4 [facility] [address] [address] Feb, Skin tags, multiple acquired L91.8 [facility] [address], [place] [address] Jan, [facility] [id number] [place] [id number] Jan, Dental examination Z01.20 [facility] [id number] [place] [address] Jan, [place] [id number] [place] [address] Jan, Type 2 diabetes mellitus with other [...] Renal failure, chronic, stage 4 (severe) N18.4 [place] [id number] [place] [address] Dec, Diabetes type 2, uncontrolled E11.[address] [address] Dec, [place] [id number] [place] [address] Dec, Type 2 diabetes mellitus with other diabetic kidney complication E11.29 ; Diabetic polyneuropathy associated with type 2 diabetes mellitus E11.42 ; Iron deficiency anemia due to chronic blood loss D50.0 ; Chronic obstructive pulmonary disease, unspecified COPD type J44.9 ; 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 ; History of DVT (deep vein thrombosis) Z86.718 ; Chronic pain syndrome G89.4 ; Oxygen desaturation during sleep G47.34 ; Sleep apnea in adult G47.33 ; Gastroesophageal reflux disease without esophagitis K21.9 ; Essential hypertension I10 ; Primary insomnia F51.01 and Depression, unspecified depression type F32.9 [facility] [address] [place] [id number] Dec, Dental caries K02.9 [facility] [address] [id number] [place] [id number] Dec, [facility] [address] [id number] [id number] Dec, Dental examination Z01.20 [facility] [address] [id number] [id number] November, Dental examination Z01.20 and Dental caries K02.9 [facility] [address] [id number] [place] [id number] Oct, [facility] [id number] [place] [id number] Oct, [facility] [id number] [place] [id number] Sep, [facility] [address] [id number] [place] [address] [id number] Sep, [facility] [address] [id number] [place] [address] [id number] Sep, [facility] [address] [id number] [place] [address] [id number] Sep, Other chronic pain 338.29 [facility] [address] [id number] [place] [address] [id number] Aug, Diabetes type 2, uncontrolled E11.65 and Morbid obesity due to excess calories E66.01 [facility] [address] [id number] [place] [id number] Aug, Hair loss L65.9 [facility] [address] [id number] [place] [id number] Aug, [facility] [address] [id number] [place] [id number] Jul, [facility] [address] [id number] [place] [address] [id number] Jul, [facility] [address] [id number] [place] [address] [id number] Jun, [facility] [address] [id number] [place] [address] [id number] Jun, Hair loss L65.9 and Disorder of the skin and subcutaneous tissue, unspecified L98.9 [id number] [place] [address] [id number] May, Type 2 diabetes mellitus with other diabetic kidney complication E11.29 ; Type 2 diabetes mellitus with hyperglycemia E11.65 ; Morbid obesity due to excess calories E66.01 and Essential hypertension I10 [place] [id number] [place] [address] [id number] May, Diabetes type 2, uncontrolled E11.65 ; Encounter for immunization Z23 and Morbid obesity due to excess calories E66.[address] [id number] May, [facility] [address] [address] Apr, [place] [id number] [place] [address] [id number] Apr, Hyperglycemia R73.9 [place] [id number] [place] [address] [id number] Apr, [place] [id number] [place] [address] [id number] Apr, Depression F32.9 ; Encounter for immunization Z23 ; Hyperglycemia R73.9 and Anemia in other chronic diseases classified elsewhere D63.8 [facility] [id number] [place] [address] [id number] Mar, [place] [id number] [place] [address] [id number] Feb, Positive occult stool blood test 792.1 [place] [id number] [place] [address] [id number] Feb, Depression 311 ; Other chronic pain 338.29 and Diabetes with renal manifestations, type II or unspecified type, not stated as uncontrolled 250.40 [facility] [id number] [place] [address] Feb, Occult blood in stools 792.[address] [id number] Feb, Anemia 285.9 ; Occult blood positive stool 792.1 ; Unspecified essential hypertension 401.9 and Other chronic pain 338.29 [place] [id number] [place] [address] [id number] Feb, [place] [id number] [place] [address] [id number] Feb, Anemia 285.9 [place] [id number] [place] [address] [id number] Feb, [address] [id number] Feb, [place] [id number] [place] [address] [id number] Feb, Diabetes with renal manifestations, type II or unspecified type, not stated as uncontrolled 250.40 ; Other chronic pain 338.29 ; Unspecified essential hypertension 401.9 ; Anemia 285.9 and Depression [address] [id number] [place] [address] [id number] Jan, [place] [id number] [place] [address] [id number] Jan, Anemia 285.9 and Follow up V67.9 [place] [id number] [place] [address] [id number] Jan, [place] [id number] [place] [address] [id number] Jan, [id number] [place] [address] [id number] Jan, [place] [id number] [place] [address] [id number] Dec, [facility] [id number] [place] [address] Oct, [facility] [address] [address] Oct, [facility] [id number] [place] [address] Sep, [address] [place] [id number] Sep, [facility] [place] [facility] [address] [facility] [id number], [place] [address] Sep, [facility] [place] [address] [facility] [id number] [place] [id number] Aug, [facility] [place] [facility] [address] [facility] [id number][place] [address] Aug, [facility] [place] [facility] [address] [facility] [id number][place] [address] Aug, [facility] [place] [address] [facility] [id number] [place] [id number] Aug, [facility] [place] [facility] [address] [id number] [address] Aug, [facility] [place] [facility] [address]00565100[place] [address] Aug, [facility] [place] [address] [id number] [place] [id number] Aug, [facility] [place] [facility] [address] [id number] [address] Aug, [facility] [place] [address] [id number] [place] [id number] Jul, [facility] [place] [facility] [address] [id number] [address] Jul, [facility] [place] [facility] [address] [facility] [id number], [place] [address] Jul, [facility] [place] [address] [facility] [id number] [place] [id number] Jul, [facility] [place] [facility] [address] [facility] [id number][place] [address] Jul, [facility] [place] [address] [facility] [id number] [place] [id number] Jul, [facility] [place] [facility] [address] [id number] [address] Jul, [facility] [place] [address] [id number] [place] [id number] Jun, [facility] [place] [address] [id number] [place] [id number] Jun, [facility] [place] [facility] [address] [facility] [id number][place] [address] Jun, [facility] [place] [facility] [address] [facility] [id number][place] [address] Jun, [facility] [place] [address] [id number] [place] [id number] Jun, [facility] [place] [facility] [address] [facility] [id number][place] [address] Jun, [facility] [place] [address] [facility] [id number] [place] [id number] May, [facility] [place] [facility] [address] [facility] [id number], [place] [address] May, [facility] [place] [facility] [address] [facility] [id number][place] [address] May, [facility] [place] [address] [id number] [place] [id number] Apr, [facility] [place] [facility] [address] [facility] [id number][place] [address] Apr, [facility] [place] [address] [id number] [place] [id number] Apr, [facility] [place] [address] [facility] [id number] [place] [id number] Apr, [facility] [place] [facility] [address] [facility] [id number][place] [address] Apr, [facility] [place] [facility] [address] [facility] [id number], [place] [address] Apr, [facility] [place] [address] [id number] [place] [id number] Mar, [facility] [place] [facility] [address] [facility] [id number], [place] [address] Mar, [facility] [address] [id number] [place] [id number] Mar, [facility] [place] [facility] [address] [id number] [place] [address] Mar, [facility] [address] [id number] [place] [id number] Mar, [facility] [place] [facility] [address] [facility] [id number] [place] [address] Mar, [facility] [address] [id number] [place] [id number] Mar, [facility] [place] [facility] [address] [facility] [id number] [place] [address] Mar, [facility] [place] [address] [id number] [place] [id number] Mar, [facility] [place] [facility] [address]00565[address] [address] Mar, [facility] [place] [address] [facility] [id number] [place] [id number] Feb, [facility] [place] [facility] [address] [facility] [id number][place] [address] Feb, [facility] [place] [address] [facility] [id number] [place] [id number] Jan, [facility] [place] [facility] [address] [facility] [id number][place] [address] Jan, [facility] [place] [address] [facility] [id number] [place] [id number] Jan, [facility] [place] [facility] [address] [facility] [id number][place] [address] Jan, [facility] [address] [id number] [place] [id number] Jan, [facility] [place] [facility] [address] [facility] [id number][place] [address] Jan, [facility] [place] [facility] [address] [facility] [id number], [place] [address] Dec, [facility] [place] [facility] [address] [id number] [place] [address] Dec, [facility] [address] [id number] [place] [id number] November, [facility] [place] [facility] [address] [id number] [place] [address] November, [facility] [address] [id number] [place] [id number] November, [facility] [place] [facility] [address] [id number] [place] [address] November, [facility] [address] [id number] [place] [id number] Oct, [facility] [place] [facility] [address] [facility] [id number] [place] [address] Oct, [facility] [place] [facility] [address] [facility] [id number] [place] [address] Oct, [facility] [place] [facility] [address] [facility] [id number] [place] [address] Oct, [facility] [place] [facility] [address] [facility] [id number] [place] [address] Oct, [facility] [place] [facility] [address] [facility] [id number] [place] [address] Oct, [facility] [address] [id number] [place] [id number] Sep, [facility] [address] [id number] [place] [id number] Sep, [facility] [place] [facility] [address] [id number] [place] [address] Sep, [facility] [place] [facility] [address] [id number] [place] [address] Sep, [facility] [address] [id number] [place] [id number] Sep, [facility] [place] [facility] [address] [facility] [id number][place] [address] Sep, [facility] [place] [facility] [address] [facility] [id number][place] [address] Aug, [facility] [place] [facility] [address] [facility] [id number][place] [address] Aug, [facility] [address] [facility] [id number] [place] [id number] Aug, [facility] [address] [facility] [id number] [place] [id number] Aug, [facility] [place] [facility] [address] [facility] [id number][place] [address] Aug, [facility] [place] [address] [id number] [place] [id number] Aug, [facility] [address]00565100[place] [address] Aug, [facility] [address] [id number] [place] [id number] Aug, [facility] [place] [facility] [address]00565[address] [address] Aug, [facility] [address] [id number] [place] [id number] Aug, [facility] [place] [facility] [address] [id number] [address] Aug, [facility] [place] [address] [facility] [id number] [place] [id number] Aug, [facility] [place] [facility] [address] [facility] [id number][place] [address] Aug, [facility] [place] [facility] [address] [facility] [id number][place] [address] Jul, [facility] [address] [id number] [place] 383144576 Jun, [facility] [place] [facility] [address] [facility] [id number], [place] [address] Jun, [facility] [place] [facility] [address] [id number], [place] [address] Jun, [facility] [place] [facility] [address] [facility] [id number][place] [address] Jun, [facility] [place] [address] [facility] [id number] [place] [id number] Jun, [facility] [place] [facility] [address] [id number], [place] [address] Jun, [facility] [place] [facility] [address] [id number], [place] [address] Jun, [facility] [place] [address] [facility] [id number] [place] 725644864 Jun, [facility] [place] [facility] [address] [id number] [address] Jun, [facility] [place] [facility] [address] [facility] [id number], [place] [address] May, [facility] [place] [address] [facility] [id number] [place] 715398833 May, [facility] [place] [facility] [address] [facility] [id number][place] [address] May, [facility] [place] [facility] [address] [id number], [place] [address] May, [facility] [place] [facility] [address] [facility] [id number][place] [address] May, [facility] [place] [facility] [address] [facility] [id number][place] [address] May, [facility] [place] [address] [facility] [id number] [place] [id number] May, [facility] [place] [facility] [address] [id number], [place] [address] May, [facility] [place] [address] [facility] [id number] [place] 618781791 May, [facility] [place] [facility] [address] [id number], [place] [address] May, [facility] [place] [address] [facility] [id number] [place] 845879065 Apr, [facility] [place] [facility] [address] [facility] [id number][place] [address] Apr, [facility] [place] [facility] [address] [facility] [id number][place] [address] Apr, [facility] [place] [address] [facility] [id number] [place] [id number] Apr, [facility] [place] [facility] [address] [facility] [id number], [place] [address] Apr, [facility] [place] [facility] [address] [facility] [id number][place] [address] Apr, [facility] [place] [address] [id number] [place] 457018699 Apr, [facility] [place] [facility] [address] [facility] [id number][place] [address] Apr, [facility] [place] [facility] [address] [facility] [id number][place] [address] Apr, [facility] [place] [facility] [address] [facility] [id number][place] [address] Apr, [facility] [place] [address] [facility] [id number] [place] [id number] Apr, [facility] [place] [facility] [address] [facility] [id number], [place] [address] Apr, [facility] [place] [address] [facility] [id number] [place] 525837743 Apr, [facility] [place] [facility] [address] [facility] [id number], [place] [address] Apr, [facility] [place] [address] [facility] [id number] [place] [id number] Apr, [facility] [place] [facility] [address] [facility] [id number], [place] [address] Apr, [facility] [address] [facility] [id number][place] [address] Apr, [facility] [address] [facility] [id number][place] [address] Apr, [facility] [place] [address] [id number] [place] [id number] Apr, [facility] [address] [facility] [id number], [place] [address] Mar, [facility] [address] [facility] [id number], [place] [address] Mar, [facility] [place] [address] [id number] [place] [id number] Mar, [facility] [address] [id number] [place] 7[place]24789 Mar, [facility] [address] [id number] [place] [id number] Mar, [facility] [address] [id number] [place] [id number] Feb, [facility] [address] [id number] [place] [id number] Feb, [facility] [address] [id number] [place] 198801875 Feb, [facility] [address] [facility] [id number], [place] [address] Feb, [facility] [address] [id number] [place] [id number] Feb, [facility] [address] [id number] [place] [id number] Feb, [facility] [address] [id number] [place] [id number] Feb, [facility] [address] [id number] [place] 102373349 Feb, [facility] [address] [id number] [place] 514205054 Feb, [facility] [place] [address] [id number] [place] 847417337 Jan, [facility] [place] [address] [id number] [place] 112617130 Jan, [facility] [place] [address] [id number] [place] 450516300 Jan, [facility] [place] [address] [id number] [place] 235942673 Jan, [facility] [place] [address] [id number] [place] 239030012 Jan, [facility] [address] [id number] [place] [address] Jan, [facility] [place] [address] [id number] [place] 726578381 Jan, [facility] [place] [address] [id number] [place] 731748860 Jan, [facility] [place] [address] [id number] [place] 692200424 Dec, [facility] [address] [id number] [place] 898589467 November, [facility] [address] [id number] [place] 441499393 November, [facility] [address] [id number] [place] 946123380 November, [facility] [address] [id number] [place] 176077812 November, [facility] [address] [id number] [place] 669726226 November, [facility] [address] [id number] [place] 430768456 November, [facility] [address] [id number] [place] 782034706 Jul, [facility] [place] [address] [id number] [place] 810947829 Jul, [facility] [address] [id number] [place] [id number] Jul, [facility] [address] [id number] [place] 022346137 Jun, [facility] [address] [id number], [place] [address] Jun, [facility] [place] [address] [id number] [place] [id number] May, [facility] [address] [facility] [id number], [place] [address] May, [facility] [place] [address] [id number] [place] [id number] May, [facility] [address] [facility] [id number], [place] [address] May, [facility] [place] [address] [facility] [id number] [place] [id number] May, [facility] [address]00565100[place] [address] May, [facility] [place] [address] [id number] [place] 536783933 Apr, [facility] [place] [facility] [address] [id number] [address] Apr, [facility] [place] [facility] [address] [id number] [address] Apr, [facility] [place] [address] [id number] [place] 454178628 Apr, [facility] [place] [address] [facility] [id number] [place] 544105330 Apr, [facility] [place] [facility] [address] [facility] [id number], [place] [address] Apr, [facility] [place] [facility] [address] [facility] [id number], [place] [address] Apr, [facility] [place] [address] [facility] [id number] [place] [id number] Apr, [facility] [place] [facility] [address] [facility] [id number] [address] Apr, [facility] [place] [address] [id number] [place] [id number] Apr, [facility] [place] [address] [id number] [place] [id number] Apr, [facility] [place] [address] [id number] [place] [id number] Mar, [facility] [place] [address] [id number] [place] [id number] Feb, [facility] [place] [address] [id number] [place] [id number] Jan, [facility] [place] [address] [id number] [place] [id number] Dec, [facility] [place] [address] [id number] [place] [id number] Dec, [facility] [place] [address] [id number] [place] [id number] Dec, [facility] [place] [address] [id number] [place] [id number] Dec, [facility] [place] [address] [id number] [place] [id number] Dec, [facility] [place] [address] [id number] [place] [id number] November, [facility] [place] [address] [id number] [place] [id number] November, [facility] [place] [address] [id number] [place] [id number] November, [facility] [address] [id number] [address] November, [facility] [place] [address] [id number] [place] [id number] November, [facility] [place] [address] [id number] [place] [id number] November, [facility] [place] [address] [id number] [place] [id number] Oct, [facility] [place] [address] [id number] [place] [id number] Oct, [facility] [place] [address] [id number] [place] [id number] Oct, [facility] [place] [address] [id number] [place] [id number] Oct, [facility] [place] [address] [id number] [place] [id number] Oct, [facility] [place] [address] [id number] [place] [id number] Oct, [facility] [place] [address] [id number] [place] [id number] Sep, [facility] [place] [address] [id number] [place] [id number] Aug, [facility] [place] [address] [id number] [place] [id number] Aug, [facility] [place] [address] [id number] [place] [id number] Jul, [facility] [id number] [place] [address] Jun, [facility] [place] [facility] [address] [id number], [place] [address] Jun, [facility] [place] [facility] [id number] [place] [address] Jun, [facility] [place] [facility] [id number] [place] [address] Jun, [facility] [place] [facility] [id number] [place] [address] May, [facility] [place] [facility] [address] [id number], [place] [address] May, [facility] [place] [facility] [id number] [place] [address] Apr, [facility] [place] [facility] [address] [id number], [place] [address] Apr, [facility] [place] [facility] [id number], [place] [address] Apr, [facility] [place] [facility] [address] [facility] [id number] [place] [address] Feb, [facility] [place] [facility] [address] [id number] [place] [address] 15 Aug, 2010 [facility] [place] [facility] [address] [id number] [place] [address] Jul, [facility] [place] [facility] [address] [id number] [place] [address] 30 Jun, 2010 [facility] [place] [facility] [address] [id number] [place] [address] May, [facility] [place] [facility] [address] [id number] [place] [address] May, [facility] [place] [facility] [address] [id number] [place] [address] May, [facility] [place] [facility] [address] [id number] [place] [address] May, [facility] [place] [facility] [address] [id number] [place] [address] May, [facility] [place] [facility] [address] [id number] [place] [address] Aug, [facility] [place] [facility] [address] [id number] [place] [address] Jun, [facility] [place] [facility] [address] [id number] [place] [address] Jun, [facility] [place] [facility] [address] [id number] [place] [address] Jun, [facility] [place] [facility] [address] [id number] [place] [address] 24 May, 2009 [facility] [place] [facility] [address] [id number] [place] [address] 28 Apr, 2009 [facility] [place] [facility] [address] [id number] [place] [address] Apr, [facility] [address] [facility] [id number], [place] [address] Apr, [facility] [address] [facility] [id number], [place] [address] Jan, [facility] [address] [facility] [id number], [place] [address] Oct, [facility] [address] [facility] [id number], [place] [address] May, [facility] [address] [facility] [id number], [place] [address] May, IMMUNIZATIONS No Known Immunizations SOCIAL HISTORY Never Assessed REASON FOR VISIT Hospital f/u-ALEXANDER [facility] PLAN OF CARE Activity Details Follow Up 3 Weeks Reason: VITAL SIGNS Height 64 in 2018-01-11 Weight 382 lbs 2018-01-11 Temperature 97.8 degrees Fahrenheit 2018-01-11 Heart Rate 75 bpm 2018-01-11 Respiratory Rate 20 2018-01-11 Oximetry w/ oxygen:91 % 2018-01-11 BMI 65.56 kg/m2 2018-01-11 Blood pressure systolic 110 mmHg 2018-01-11 Blood pressure diastolic 52 mmHg 2018-01-11 MEDICATIONS Medication Instructions Dosage Frequency Start Date End Date Duration Status Effexor XR 150 MG Orally Once a day 1 capsule with food 24h Active Multivitamin Orally Once a day 1 tablet 24h Dec, Active Biotin 1000 MCG Orally Once a day 1 tablet 24h Active Trazodone HCl 150 MG Orally Once a day at bedtime as needed 1 tablet Not-Taking Cozaar 100 MG Orally Once a day 1 tablet 24h Active Albuterol Sulfate 90 mcg/actuation inhalation every 4-6 hours as needed 1-2 puffs Active Oxygen Portable oxygen concentrator 2L NC May, Active Insulin Glargine 100 UNIT/ML Subcutaneous at bedtime 20 units Active Polysaccharide Iron Complex 150 MG Orally 3 times a day 1 capsule 8h Active Levofloxacin 750 MG Orally three times a week 1 tablet Active HydrALAZINE HCl 50 MG Orally Three times a day 1 tablet with food 8h Active Tramadol HCl 50 mg Orally every 8 hrs as needed 1 tablet as needed Active Eliquis 5 MG TAKE DIRECTED TWO (2) TIMES DAILY. Active Carafate 1 GM Orally 4 times a day 1 tablet on an empty stomach 6h Active Verapamil HCl ER 240 MG Orally Once a day in the morning 1 tablet Active Aspirin 81 81 MG Orally Once a day 1 tablet 24h Active Advair Diskus 100 mcg-50 mcg inhalation bid, rinse mouth afterwards 1 puffs Active Oxygen 2 L/NC .... daily Active Lipitor 40 mg Orally Once a day 1 tablet 24h Not-Taking Victoza 18 MG/3ML INJECT 0.6 MG SUBCUTANEOUSLY ONCE DAILY... Not-Taking HydrALAZINE HCl 25 MG Orally Three times a day 1 tablet with food 8h Active Melatonin 10 mg 2 Tablet by Oral route 1 time per dayat bedtime Active Zanaflex 4 MG Orally Three times a day 1 capsule as needed 8h Dec, Jun, 30 days Not-Taking Test strips ... True Test Active Glucometer ... as directed Active Tresiba FlexTouch 200 unit/ml ICD10- E11.29 daily 105 units 24h Not-Taking NovoLog Flexpen 100 UNIT/ML ICD10- E11.29 3 times a day with meals 50 Jul, Active LidoPatch Pain Relief 3.99-1.25 % Externally Once a day 1 patch to skin remove after 12 hours 24h 30 Active Ferrous Sulfate 325 (65 Fe) MG TAKE ONE (1) TABLET BY MOUTH TWICE DAILY... Not-Taking Ascorbic Acid 500 MG Orally Once a day 1 tablet 24h Active Iewmdamb-AMV-0 0.2 MG/24HR 1 patch to skin Active Allopurinol 100 MG Orally Once a day 1 tablet 24h Active Torsemide 100 mg Orally Once a day 1/2 tablet 24h 30 Not-Taking Savella 100 mg Orally Twice a day 1 tablet 12h 28 Active Fish Oil Concentrate 1000 MG Orally Once a day 1 capsule 24h Apr, Active BD Pen BD PEN NEEDLE LOVELY subcut 3 times a day as directed 8h Active Seroquel 50 mg Orally Once a day at bedtime 1 tablet 30 Not-Taking Protonix 40 MG TAKE ONE (1) TABLET BY MOUTH ONCE DAILY. Active Darby Allergy 180 MG Orally Once a day 1 tablet as needed 24h Active BD Pen Needle Lovely U/F 32G X 4 MM USE DIRECTED THREE (3) TIMES DAILY. Active Gabapentin 600 MG Orally 3 times a day 1 tablet 8h 28 days Active Fluticasone Propionate HFA 110 MCG/ACT Inhalation Twice a day 1 puff 12h Active RESULTS No Results PROCEDURES Procedure Date Ordered Result Body Site LAB NOT BILLED BY [facility] January 11, 2018 [facility] VISIT ESTABLISHED PATIENT January 11, 2018 JESSE, ROUTINE* January 11, 2018 INSTRUCTIONS MEDICATIONS ADMINISTERED No Known Medications MEDICAL [...] Dialysis Ruthy Reveles 2012 -Dr. Simon now [facility] Medical History Colonoscopy (polyps 2 ) [...]
--- OUTSIDE RECORDS SUMMARY | 2018-12-28 18:02 | XMS REPORT ---
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 Name Role Phone JETHRO SHETH Unavailable PROBLEMS Type Condition ICD9-CM Code EYQ66-LM Code Onset Dates Condition Status SNOMED Code Problem Chronic kidney disease, stage 4 (severe) N18.4 Active 982203768 Problem Psoriasis of scalp L40.9 Active 135151670 Problem Type 2 diabetes mellitus with hyperglycemia E11.65 Active 582896339367276 Problem Fibromyalgia M79.7 Active 055969195 Problem History of DVT (deep vein thrombosis) Z86.718 Active 672101376 Problem Carpal tunnel syndrome, bilateral G56.03 Active 90695737001661921 Problem Type 2 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 Active 452545514 Problem Anemia in other chronic diseases classified elsewhere D63.8 Active 011254768 Problem 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 Active 565182287 Problem Paresthesia of right upper extremity R20.2 Active 12240517 Problem Bilateral lower extremity edema R60.0 Active 370293285 Problem Supplemental oxygen dependent Z99.81 Active 199933251022 Problem Sleep apnea in adult G47.33 Active 09536757 Problem Chronic pain syndrome G89.4 Active 104605006 Problem intermodal dispatcher current use of anticoagulant Z79.01 Active 750108800 Problem Essential hypertension I10 Active 87430476 Problem Gastroesophageal reflux disease without esophagitis K21.9 Active 495241268 Problem Chronic obstructive pulmonary disease, unspecified COPD type J44.9 Active 82068689 Problem 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 Active 560279101203096 Problem Primary insomnia F51.01 Active 8774124 Problem Oxygen desaturation during sleep G47.34 Active 829375845 Problem Right carpal tunnel syndrome G56.01 Active 008246261146520 Problem Diabetic polyneuropathy associated with type 2 diabetes mellitus E11.42 Active 31262341 Problem Depression, unspecified depression type F32.9 Active 97481049 ALLERGIES No Information ENCOUNTERS Encounter Location Date Diagnosis [facility] [address], [place] [address] Feb, [facility] [address], [place] [address] Feb, [facility] [address], [place] [address] Jan, [facility] [address], [place] [address] Jan, [facility] [id number] [place] [address] Jan, [address] [id number] Jan, [facility] [address], [place] [address] Jan, [facility] [address], [place] [address] Jan, [facility] [address] [place] [address] Jan, Essential hypertension I10 [facility] [address], [place] [address] Jan, Chronic obstructive pulmonary disease, unspecified COPD type J44.9 [facility] [address], [place] [address] Jan, [facility] [address], [place] [address] Jan, [facility] [address], [place] [address] Jan, Type 2 diabetes mellitus with other diabetic kidney complication E11.29 ; Anemia in other chronic diseases classified elsewhere D63.8 ; Chronic obstructive pulmonary disease, unspecified COPD type J44.9 and BMI 60.0-69.9, adult Z68.44 [facility] [address], [place] [address] Jan, [facility] [id number] [place] [address] Jan, [facility] [id number] [id number] Jan, [facility] [address] [id number] [id number] Dec, [facility] [id number] [id number] Dec, [facility] [id number] [id number] Dec, Essential hypertension I10 ; Type 2 diabetes mellitus with other diabetic kidney complication E11.29 ; Depression, unspecified depression type F32.9 ; Supplemental oxygen dependent Z99.81 ; Chronic pain syndrome G89.4 ; Fibromyalgia M79.7 ; Carpal tunnel syndrome, bilateral G56.03 and Chronic kidney disease, stage 4 (severe) N18.4 [facility] [address], [place] [address] Dec, Essential hypertension I10 [facility] [id number], [place] [address] November, Type 2 diabetes mellitus with other diabetic kidney complication E11.29 [facility] [address], [place] [address] November, Chronic pain syndrome G89.4 [facility] [address], [place] [address] November, [facility] [id number] [address] November, [facility] [address], [place] [address] November, [facility] [address], [place] [address] Oct, Type 2 diabetes mellitus with other diabetic kidney complication E11.29 [place] [address], [place] [address] Oct, Primary insomnia F51.01 [place] [id number] [id number] Oct, Bilateral lower extremity edema R60.0 [place] [address] [place] [address] Oct, [place] [id number] [place] [address] Sep, Type 2 diabetes mellitus with other diabetic kidney complication E11.29 and Chronic obstructive pulmonary disease, unspecified COPD type J44.9 [place] [id number] [place] [address] 15 Aug, 2017 Type 2 diabetes mellitus with other diabetic kidney complication E11.29 [place] [id number] [place] [address] 12 Aug, 2017 Gastroesophageal reflux disease without esophagitis K21.9 ; intermodal dispatcher current use of anticoagulant Z79.01 ; Chronic pain syndrome G89.4 ; Essential hypertension I10 and Type 2 diabetes mellitus with other diabetic kidney complication E11.29 [place] [address] [place] [address] 08 Aug, 2017 Chronic pain syndrome G89.4 [place] [address], [place] [address] Aug, Type 2 diabetes mellitus with other diabetic kidney complication E11.29 [place] [address] [place] [address] Jul, Diabetic polyneuropathy associated with type 2 diabetes mellitus E11.42 [place] [address] [place] [address] Jul, Primary insomnia F51.01 [facility] [address], [place] [address] Jul, [place] [address], [place] [address] 14 Jul, 2017 Type 2 diabetes mellitus with other diabetic kidney complication E11.29 and Chronic obstructive pulmonary disease, unspecified COPD type J44.9 [place] [address], [place] [address] 08 Jul, 2017 Type 2 diabetes mellitus with other diabetic kidney complication E11.29 [place] [id number] [place] [address] Jun, Type 2 diabetes mellitus with other diabetic kidney complication E11.29 [facility] [id number], [place] [address] 27 Jun, 2017 [place] [id number] [place] [address] Jun, Chronic obstructive pulmonary disease, unspecified COPD type J44.9 [place] [id number] [place] [address] May, Type 2 diabetes mellitus with other diabetic kidney complication E11.29 [place] [address], [place] [address] May, [facility]entiary current use of anticoagulant Z79.01 and Essential hypertension I10 [address] [place] [address] May, Anemia in other chronic diseases classified elsewhere D63.8 ; Chronic obstructive pulmonary disease, unspecified COPD type J44.9 ; Oxygen desaturation during sleep G47.34 ; Sleep apnea in adult G47.33 and Supplemental oxygen dependent Z99.81 [address], [place] [address] May, Type 2 diabetes mellitus with other diabetic kidney complication E11.29 ; Essential hypertension I10 ; Chronic pain syndrome G89.4 ; BMI 40.0- 44.9, adult Z68.41 ; Gastroesophageal reflux disease without esophagitis K21.9 ; penitentiary current use of anticoagulant Z79.01 ; 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 ; Diabetic polyneuropathy associated with type 2 diabetes mellitus E11.42 ; Edema of both legs R60.0 and Supplemental oxygen dependent Z99.81 [place] [id number] [place] [address] 08 May, 2017 [place] [id number] [place] [address] May, Essential hypertension I10 and Gastroesophageal reflux disease without esophagitis K21.9 [place] [id number] [place] [address] May, [place] [id number] [place] [address] May, Type 2 diabetes mellitus with other diabetic kidney complication E11.29 and penitentiary current use of anticoagulant Z79.01 [place] [id number] [place] [address] Apr, Chronic pain syndrome G89.4 and Essential hypertension I10 [place] [id number] [place] [address] Apr, Type 2 diabetes mellitus with other diabetic kidney complication E11.29 [place] [id number] [place] [address] Apr, Type 2 diabetes mellitus with other diabetic kidney complication E11.29 [place] [id number] [place] [address] Apr, Essential hypertension I10 [place] [id number] [place] [address] Apr, Gastroesophageal reflux disease without esophagitis K21.9 [place] [id number] [place] [address] Apr, Type 2 diabetes mellitus with other diabetic kidney complication E11.29 [place] [id number] [place] [address] Apr, Type 2 diabetes mellitus with other diabetic kidney complication E11.29 and penitentiary current use of anticoagulant Z79.01 [facility] [address], [place] [address] 27 Mar, 2017 Encounter for immunization Z23 and Preoperative examination Z01.818 [facility] [id number] [place] [address] Mar, [facility] [id number] [place] [address] 12 Mar, 2017 Type 2 diabetes mellitus with other diabetic kidney complication E11.29 [facility] [id number] [place] [address] 08 Mar, 2017 Type 2 diabetes mellitus with other diabetic kidney complication E11.29 [place] [id number] [place] [address] 06 Mar, 2017 Gastroesophageal reflux disease without esophagitis K21.9 [facility] [id number] [place] [address] Mar, Essential hypertension I10 [facility] [id number] [place] [address] Feb, penitentiary current use of anticoagulant Z79.01 [facility] [id number] [place] [address] Feb, Type 2 diabetes mellitus with other diabetic kidney complication E11.29 [facility] [id number] [place] [address] Feb, Type 2 diabetes mellitus with other diabetic kidney complication E11.29 [facility] [id number] [place] [address] Feb, Type 2 diabetes mellitus with other diabetic kidney complication E11.29 [facility] [id number] [place] [address] Feb, Gastroesophageal reflux disease without esophagitis K21.9 [facility] [id number] [place] [address] Feb, Type 2 diabetes mellitus with other diabetic kidney complication E11.29 [facility] [address], [place] [address] Feb, intermodal dispatcher current use of anticoagulant Z79.01 [facility] [id number] [place] [address] Jan, Type 2 diabetes mellitus with other diabetic kidney complication E11.29 [facility] [id number] [place] [address] Jan, Type 2 diabetes mellitus with other diabetic kidney complication E11.29 [facility] [id number] [place] [address] Jan, Chronic pain syndrome G89.4 [facility] [id number] [place] [address] Jan, [facility] [id number] [place] [address] Jan, [facility] [id number] [place] [address] Jan, [facility] [id number] [place] [address] Jan, [facility] [address] [place] [address] Jan, Primary insomnia F51.01 ; Type 2 diabetes mellitus with other diabetic kidney complication E11.29 ; Chronic pain syndrome G89.4 and Essential hypertension I10 [facility] [address], [place] [address] Jan, Primary insomnia F51.01 [facility] [address] [place] [address] Jan, Type 2 diabetes mellitus with other diabetic kidney complication E11.29 [facility] [address], [place] [address] Jan, [facility] [id number] [place] [address] Jan, Chronic obstructive pulmonary disease, unspecified COPD type J44.9 [facility] [address] [place] [address] Jan, Essential hypertension I10 ; Type 2 [...] type 2 diabetes mellitus E11.42 [place] [id number] [place] [address] Jan, Gastroesophageal reflux disease without esophagitis K21.9 [facility] [id number] [place] [address] Dec, [facility] [id number] [place] [address] Dec, [facility] [id number] [place] [address] Dec, intermodal dispatcher current use of anticoagulant Z79.01 ; Chronic pain syndrome G89.4 and Essential hypertension I10 [facility] [id number] [place] [address] Dec, [facility] [id number] [place] [address] Dec, Type 2 diabetes mellitus with other diabetic kidney complication E11.29 [facility] [id number], [place] [address] Dec, [facility] [id number] [place] [address] Dec, Gastroesophageal reflux disease without esophagitis K21.9 [facility] [id number] [place] [address] November, Type 2 diabetes mellitus with other diabetic kidney complication E11.29 [facility] [address], [place] [address] November, [facility] [address], [place] [address] November, Type 2 diabetes mellitus with other diabetic kidney complication E11.29 [facility] [address], [place] [address] November, [facility] [id number], [place] [address] November, Type 2 diabetes mellitus with other diabetic kidney complication E11.29 [facility] [address] [place] [address] November, [facility] [address] [place] [address] Oct, Essential hypertension I10 [facility] [id number] [place] [address] Oct, Psoriasis of scalp L40.9 [facility] [address], [place] [address] Oct, Essential hypertension I10 and Chronic pain syndrome G89.4 [facility] [address], [place] [address] Oct, [facility] [address], [place] [address] Sep, Type 2 diabetes mellitus with other diabetic kidney complication E11.29 [facility] [address], [place] [address] Sep, [facility] [id number], [place] [address] Sep, Type 2 diabetes mellitus with other diabetic kidney complication E11.29 [facility] [address], [place] [address] Sep, Type 2 diabetes mellitus with other diabetic kidney complication E11.29 [place] [id number] [place] [address] Sep, 2017 Type 2 diabetes mellitus with other diabetic kidney complication E11.29 ; Chronic kidney disease, stage 4 (severe) N18.4 ; Chronic obstructive pulmonary disease, unspecified COPD type J44.9 ; Iron deficiency anemia due to chronic blood loss D50.0 ; intermodal dispatcher current use of anticoagulant Z79.01 ; Gastroesophageal reflux disease without esophagitis K21.9 ; Essential hypertension I10 ; Primary insomnia F51.01 ; Depression, unspecified depression type F32.9 ; Chronic pain syndrome G89.4 ; Wrist pain, right M25.531 ; Paresthesia of right upper extremity R20.2 and Psoriasis of scalp L40.9 [place] [id number] [place] [address] Sep, [address] [address] Aug, Essential hypertension I10 [place] [address] [address] Aug, History of DVT (deep vein thrombosis) Z86.718 [place] [address] [address] Aug, [place] [id number] [place] [address] Jul, [place] [id number] [place] [address] Jul, [place] [id number] [place] [address] Jul, penitentiary current use of anticoagulant Z79.01 ; Chronic pain syndrome G89.4 and Chronic kidney disease, stage 4 (severe) N18.4 [place] [id number] [place] [address] Jul, [place] [address] [address] Jul, [place] [address], [place] [address] Jul, [place] [id number] [place] [address] Jul, [place] [address] [place] [address] Jul, [place] [id number] [place] [address] Jul, Type 2 diabetes mellitus with other diabetic kidney complication E11.29 [place] [id number] [place] [address] Jul, History of DVT (deep vein thrombosis) Z86.718 [place] [id number] [place] [address] 23 Jun, 2016 [place] [id number] [place] [address] Jun, History of DVT (deep vein thrombosis) Z86.718 [place] [id number] [place] [address] 15 Jun, 2016 Post traumatic stress disorder (PTSD) F43.10 [place] [address], [place] [address] 07 Jun, 2016 Type 2 diabetes mellitus with other diabetic kidney complication E11.29 ; Diabetic polyneuropathy associated with type 2 diabetes mellitus E11.42 ; Iron deficiency anemia due to chronic blood loss D50.0 ; Chronic obstructive pulmonary disease, unspecified COPD type J44.9 ; intermodal dispatcher current use of anticoagulant Z79.01 ; History [...] pain M79.641 and Right wrist pain M25.531 [facility] [id number] [place] [address] May, [facility] [id number] [place] [address] May, [facility] [id number] [place] [address] May, [facility] [id number] [place] [address] May, [facility] [id number] [place] [address] May, Anemia in other chronic diseases classified elsewhere D63.8 [facility] [id number] [place] [address] May, [facility] [id number] [place] [address] Apr, [facility] [id number] [place] [address] 27 Mar, 2016 Dermatofibroma D23.9 [facility] [id number] [place] [address] 20 Mar, 2016 [facility] [id number] [place] [address] 14 Mar, 2016 Chronic pain syndrome G89.4 [facility] [id number] [place] [address] 09 Mar, 2016 [facility] [id number] [place] [address] 07 Mar, 2016 [facility] [id number] [place] [address] 06 Mar, 2016 [facility] [id number] [place] [address] Feb, [facility] [address], [place] [address] Feb, [facility] [address] [place] [address] Feb, [facility] [id number] [place] [address] Feb, [facility] [id number] [place] [address] Feb, [facility] [address] [place] [address] Feb, [facility] [id number] [place] [address] Feb, Type 2 diabetes mellitus with other diabetic kidney complication E11.29 ; Diabetic polyneuropathy associated with type 2 diabetes mellitus E11.42 ; Iron deficiency anemia due to chronic blood loss D50.0 ; Chronic obstructive pulmonary disease, unspecified COPD type J44.9 ; intermodal dispatcher current use of anticoagulant Z79.01 ; History of DVT (deep vein thrombosis) Z86.718 ; Chronic pain syndrome G89.4 ; Oxygen desaturation during sleep G47.34 ; Sleep apnea in adult G47.33 ; Gastroesophageal reflux disease without esophagitis K21.9 ; Essential hypertension I10 ; Primary insomnia F51.01 ; Depression, unspecified depression type F32.9 and Renal failure, chronic, stage 4 (severe) N18.4 [facility] [address] [place] [address] Feb, Skin tags, multiple acquired L91.8 [facility] [id number] [place] [address] Jan, [facility] [id number] [place] [id number] Jan, Dental examination Z01.20 [facility] [id number] [place] [address] Jan, [address] [place] [address] Jan, Type 2 diabetes mellitus with other [...] Renal failure, chronic, stage 4 (severe) N18.4 [place] [id number] [place] [address] Dec, Diabetes type 2, uncontrolled E11.65 [place] [id number] [place] [address] Dec, [place] [id number] [place] [address] Dec, Type 2 diabetes mellitus with other [...] Depression, unspecified depression type F32.9 [facility] [facility] [id number] [place] [address] [id number] Dec, Dental caries K02.9 [facility] [address] [id number] [place] [address] [id number] Dec, [facility] [address] [id number] [id number] Dec, Dental examination Z01.20 [facility] [address] [id number][place] [id number] November, Dental examination Z01.20 and Dental caries K02.9 [facility] [address] [id number] [place] [address] [id number] Oct, [facility] [address] [id number] [place] [address] [id number] Oct, [facility] [address] [id number] [place] [address] [id number] Sep, [facility] [address] [id number] [place] [address] [id number] Sep, [facility] [address] [id number] [place] [address] [id number] Sep, [facility] [address] [id number] [place] [address] [id number] Sep, Other chronic pain 338.29 [facility] [address] [id number] [place] [address] [id number] Aug, Diabetes type 2, uncontrolled E11.65 and Morbid obesity due to excess calories E66.01 [facility] [address] [id number] [place] [address] [id number] Aug, Hair loss L65.9 [facility] [address] [id number] [place] [address] [id number] Aug, [facility] [address] [id number] [place] [address] [id number] Jul, [facility] [id number] [place] [address] [id number] Jul, [facility] [address] [id number] [place] [address] [id number] Jun, [facility] [address] [id number] [place] [address] [id number] Jun, Hair loss L65.9 and Disorder of the skin and subcutaneous tissue, unspecified L98.9 [facility] [address] [id number] [place] [address] [id number] May, Type 2 diabetes mellitus with other diabetic kidney complication E11.29 ; Type 2 diabetes mellitus with hyperglycemia E11.65 ; Morbid obesity due to excess calories E66.01 and Essential hypertension I10 [id number] [place] [address] [id number] May, Diabetes type 2, uncontrolled E11.65 ; Encounter for immunization Z23 and Morbid obesity due to excess calories E66.01 [id number] [place] [address] [id number] May, [facility] [id number] [place] [address] Apr, [address] [id number] Apr, Hyperglycemia R73.9 [id number] [place] [address] [id number] Apr, [address] [id number] Apr, Depression F32.9 ; Encounter for immunization Z23 ; Hyperglycemia R73.9 and Anemia in other chronic diseases classified elsewhere D63.8 [facility] [id number] [place] [address] [id number] Mar, [id number] [place] [address] [id number] Feb, Positive occult stool blood test 792.1 [id number] [place] [address] [id number] Feb, Depression 311 ; Other chronic pain 338.29 and Diabetes with renal manifestations, type II or unspecified type, not stated as uncontrolled 250.40 [facility] [id number] [place] [address] Feb, Occult blood in stools 792.1 [id number] [place] [address] [id number] Feb, Anemia 285.9 ; Occult blood positive stool 792.1 ; Unspecified essential hypertension 401.9 and Other chronic pain 338.[address] [id number], [place] [id number] Feb, [facility] [id number] [place] [address] [id number] Feb, Anemia 285.9 [facility] [id number] [place] [address] [id number] Feb, [facility] [id number] [place] [address] [id number] Feb, [facility] [id number] [place] [address] [id number] Feb, Diabetes with renal manifestations, type II or unspecified type, not stated as uncontrolled 250.40 ; Other chronic pain 338.29 ; Unspecified essential hypertension 401.9 ; Anemia 285.9 and Depression 311 [facility] [id number] [place] [address] [id number] Jan, [facility] [id number] [place] [address] [id number] Jan, Anemia 285.9 and Follow up V67.9 [facility] [id number] [place] [address] [id number] Jan, [facility] [id number] [place] [address] [id number] Jan, [facility] [id number] [place] [address] [id number] Jan, [facility] [id number] [place] [address] [id number] Dec, [facility] [address]005[place] [address] Oct, [facility] [id number] [place] [address] Oct, [facility] [id number] [place] [address] Sep, [facility] [id number], [place] [id number] Sep, [facility] [id number] [place] [address] Sep, [facility] [place] [address] [id number] [place] [id number] Aug, [facility] [place] [facility] [address] [facility] [id number] [place] [address] Aug, [facility] [place] [facility] [address] [facility] [id number], [place] [address] Aug, [facility] [place] [address] [id number], [place] [id number] Aug, [facility] [place] [facility] [address] [facility] [id number] [place] [address] Aug, [facility] [place] [facility] [address] [facility] [id number] [place] [address] Aug, [facility] [place] [address] [facility] [id number], [place] [id number] Aug, [facility] [place] [facility] [address]00565[place] [address] Aug, [facility] [place] [address] [facility] [id number], [place] [id number] Jul, [facility] [place] [facility] [address]00565[place], [place] [address] Jul, [facility] [place] [facility] [address] [id number], [place] [address] Jul, [facility] [place] [address] [id number], [place] [id number] Jul, [facility] [place] [facility] [address] [facility] [id number], [place] [address] Jul, [facility] [place] [address] [id number], [place] [id number] Jul, [facility] [place] [facility] [address] [facility] [id number], [place] [address] Jul, [facility] [place] [address] [id number], [place] [id number] Jun, [facility] [place] [address] [facility] [id number], [place] [id number] Jun, [facility] [place] [facility] [address] [facility] [id number], [place] [address] Jun, [facility] [place] [facility] [address] [facility] [id number], [place] [address] Jun, [facility] [place] [address] [id number], [place] [id number] Jun, [facility] [place] [facility] [address] [facility] [id number], [place] [address] Jun, [facility] [place] [address] [facility] [id number], [place] [id number] May, [facility] [place] [facility] [address] [facility] [id number], [place] [address] May, [facility] [place] [facility] [address] [facility] [id number], [place] [address] May, [facility] [place] [address] [facility] [id number], [place] [id number] Apr, [facility] [place] [facility] [address] [facility] [id number], [place] [address] Apr, [facility] [place] [address] [facility] [id number], [place] [id number] Apr, [facility] [address] [facility] [id number], [place] [id number] Apr, [facility] [place] [facility] [address] [facility] [id number], [place] [address] Apr, [facility] [place] [facility] [address] [facility] [id number], [place] [address] Apr, [facility] [place] [address] [facility] [id number], [place] [id number] Mar, [facility] [place] [facility] [address] [facility] [id number], [place] [address] Mar, [facility] [place] [address] [id number], [place] [id number] Mar, [facility] [place] [facility] [address] [id number] [place] [address] Mar, [facility] [place] [address] [id number] [place] [id number] Mar, [facility] [place] [facility] [address] [id number] [place] [address] Mar, [facility] [place] [address] [id number] [place] [id number] Mar, [facility] [place] [facility] [address] [facility] [id number] [place] [address] Mar, [facility] [place] [address] [id number] [place] [id number] Mar, [facility] [place] [facility] [address] [facility] [id number] [place] [address] Mar, [facility] [place] [address] [facility] [id number] [place] [id number] Feb, [facility] [place] [facility] [address] [facility] [id number] [place] [address] Feb, [facility] [place] [address] [facility] [id number] [place] [id number] Jan, [facility] [place] [facility] [address] [facility] [id number], [place] [address] Jan, [facility] [place] [address] [facility] [id number] [place] [id number] Jan, [facility] [place] [facility] [address] [facility] [id number], [place] [address] Jan, [facility] [place] [address] [facility] [id number] [place] [id number] Jan, [facility] [place] [facility] [address] [facility] [id number] [place] [address] Jan, [facility] [place] [facility] [address] [facility] [id number] [place] [address] Dec, [facility] [place] [facility] [address] [facility] [id number] [place] [address] Dec, [facility] [place] [address] [id number] [place] [id number] November, [facility] [place] [facility] [address] [id number] [place] [address] November, [facility] [place] [address] [id number] [place] [id number] November, [facility] [place] [facility] [address] [id number] [place] [address] November, [facility] [place] [address] [id number] [place] [id number] Oct, [facility] [place] [facility] [address] [id number] [place] [address] Oct, [facility] [place] [facility] [address] [facility] [id number] [place] [address] Oct, [facility] [place] [facility] [address] [place] [address] Oct, [facility] [place] [facility] [address] [facility] [id number] [place] [address] Oct, [facility] [place] [facility] [address] [facility] [id number] [place] [address] Oct, [facility] [place] [address] [id number], [place] [id number] Sep, [facility] [place] [address] [id number], [place] 609577794 Sep, [facility] [place] [facility] [address] [id number], [place] [address] Sep, [facility] [place] [facility] [address] [id number] [place] [address] Sep, [facility] [place] [address] [id number] [place] [id number] Sep, [facility] [place] [facility] [address] [facility] [id number] [place] [address] Sep, [facility] [place] [facility] [address] [id number], [place] [address] Aug, [facility] [place] [facility] [address] [facility] [id number], [place] [address] Aug, [facility] [place] [address] [facility] [id number] [place] [id number] Aug, [facility] [place] [address] [facility] [id number] [place] [id number] Aug, [facility] [place] [facility] [address] [facility] [id number], [place] [address] Aug, [facility] [place] [address] [facility] [id number] [place] [id number] Aug, [facility] [place] [facility] [address]00565[address], [place] [address] Aug, [facility] [place] [id number] [place] 088381517 Aug, [facility] [place] [facility] [address]00565[address], [place] [address] Aug, [facility] [place] [address] [id number] [place] [id number] Aug, [facility] [place] [facility] [address]00565100[place], [place] [address] Aug, [facility] [place] [address] [id number], [place] 815620568 Aug, [facility] [place] [facility] [address]00565[address], [place] [address] Aug, [facility] [place] [facility] [address] [facility] [id number], [place] [address] Jul, [facility] [place] [id number], [place] 520242065 Jun, [facility] [place] [facility] [address] [facility] [id number], [place] [address] Jun, [facility] [place] [facility] [address]00565[address], [place] [address] Jun, [facility] [place] [facility] [address] [id number] [place] [address] Jun, [facility] [place] [address] [id number] [place] [id number] Jun, [facility] [place] [facility] [address] [id number] [place] [address] Jun, [facility] [place] [facility] [address] [id number] [place] [address] Jun, [facility] [place] [address] [id number] [place] [id number] Jun, [facility] [place] [facility] [address] [id number] [place] [address] Jun, [facility] [place] [facility] [address] [id number] [place] [address] May, [facility] [place] [id number], [place] 392558202 May, [facility] [place] [facility] [address] [id number], [place] [address] May, [facility] [place] [facility] [address] [id number], [place] [address] May, [facility] [place] [facility] [address] [id number], [place] [address] May, [facility] [place] [facility] [address] [facility] [id number], [place] [address] May, [facility] [place] [address] [id number], [place] 134947116 May, [facility] [place] [facility] [address] [id number], [place] [address] May, [facility] [place] [address] [facility] [id number], [place] [id number] May, [facility] [place] [facility] [address] [id number], [place] [address] May, [facility] [place] [address] [facility] [id number], [place] [id number] Apr, [facility] [address] [facility] [id number], [place] [address] Apr, [facility] [place] [facility] [address] [facility] [id number], [place] [address] Apr, [facility] [address] [facility] [id number], [place] 486371039 Apr, [facility] [place] [facility] [address] [facility] [id number], [place] [address] Apr, [facility] [address] [facility] [id number], [place] [address] Apr, [facility] [address] [id number], [place] [id number] Apr, [facility] [place] [facility] [address]65[address], [place] [address] Apr, [facility] [place] [facility] [address] [id number], [place] [address] Apr, [facility] [place] [facility] [address] [facility] [id number], [place] [address] Apr, [facility] [address] [id number], [place] 647772018 Apr, [facility] [place] [facility] [address] [facility] [id number], [place] [address] Apr, [facility] [address] [facility] [id number], [place] 599046657 Apr, [facility] [place] [facility] [address] [facility] [id number], [place] [address] Apr, [facility] [address] [facility] [id number], [place] 895127462 Apr, [facility] [place] [facility] [address] [facility] [id number], [place] [address] Apr, [facility] [place] [facility] [address] [facility] [id number], [place] [address] Apr, [facility] [address] [facility] [id number], [place] [address] Apr, [facility] [place] [address] [id number] [place] [id number] Apr, [facility] [address] [facility] [id number], [place] [address] Mar, [facility] [address] [facility] [id number], [place] [address] Mar, [facility] [place] [address] [id number] [place] 182088126 Mar, [facility] [place] [address] [id number] [place] 555760834 Mar, [facility] [address] [id number] [place] 041615119 Mar, [facility] [address] [id number] [place] 517946900 Feb, [facility] [place] [address] [id number] [place] 611877189 Feb, [facility] [place] [address] [id number] [place] 274258610 Feb, [facility] [address] [facility] [id number], [place] [address] Feb, [facility] [place] [address] [id number] [place] [id number] Feb, [facility] [place] [address] [id number] [place] 030227999 Feb, [facility] [place] [address] [id number] [place] 448507896 Feb, [facility] [address] [id number] [place] 961343537 Feb, [facility] [place] [address] [id number] [place] 473181045 Feb, [facility] [place] [address] [id number] [place] 808400567 Jan, [facility] [place] [address] [id number] [place] 816559659 Jan, [facility] [place] [address] [id number] [place] 467318384 Jan, [facility] [place] [address] [id number] [place] 237937089 Jan, [facility] [place] [address] [id number] [place] 399927561 Jan, [facility] [address]00565[address], [place] [address] Jan, [facility] [place] [address] [id number] [place] [id number] Jan, [facility] [place] [address] [id number] [place] 328889559 Jan, [facility] [place] [address] [id number] [place] 695351662 Dec, [facility] [place] [address] [id number] [place] 185390052 November, [facility] [place] [address] [id number] [place] [id number] November, [facility] [place] [address] [id number] [place] 553404352 November, [facility] [place] [address] [id number] [place] 564665029 November, [facility] [place] [address] [id number] [place] 621652925 November, [facility] [place] [address] [id number] [place] 957583243 November, [facility] [place] [address] [id number] [place] 892179506 Jul, [facility] [place] [address] [id number] [place] 238598758 Jul, [facility] [place] [address] [id number] [place] 950330107 Jul, [facility] [place] [address] [id number] [place] 194278045 Jun, [facility] [address]00565[address], [place] [address] Jun, [facility] [place] [address] [id number] [place] [id number] May, [facility] [place] [facility] [address] [facility] [id number], [place] [address] May, [facility] [place] [address] [id number] [place] [id number] May, [facility] [place] [facility] [address] [facility] [id number], [place] [address] May, [facility] [place] [address] [id number] [id number] May, [facility] [place] [facility] [address] [facility] [id number], [place] [address] May, [facility] [place] [address] [id number][place] [id number] Apr, [facility] [place] [facility] [id number], [place] [address] Apr, [facility] [place] [facility] [address] [facility] [id number], [place] [address] Apr, [facility] [place] [address] [id number][place] [id number] Apr, [facility] [place] [address] [id number][place] [id number] Apr, [facility] [place] [facility] [address] [facility] [id number], [place] [address] Apr, [facility] [place] [facility] [address] [facility] [id number], [place] [address] Apr, [facility] [place] [address] [id number][place] [id number] Apr, [facility] [place] [facility] [address] [facility] [id number], [place] [address] Apr, [facility] [place] [address] [id number] [place] [id number] Apr, [facility] [place] [address] [id number][place] [id number] Apr, [facility] [place] [address] [id number] [place] [id number] Mar, [facility] [place] [address] [id number] [place] [id number] Feb, [facility] [place] [address] [id number] [place] [id number] Jan, [facility] [place] [address] [id number] [place] [id number] Dec, [facility] [place] [address] [id number] [place] [id number] Dec, [facility] [place] [address] [id number] [place] [id number] Dec, [facility] [place] [address] [id number] [place] [id number] Dec, [facility] [place] [address] [id number] [place] [id number] Dec, [facility] [place] [address] [id number] [place] [id number] November, [facility] [place] [address] [id number] [place] [id number] November, [facility] [place] [address] [id number] [place] [id number] November, [facility] [address] [facility] [id number], [place] [address] November, [facility] [place] [address] [id number] [place] [id number] November, [facility] [place] [address] [id number] [place] [id number] November, [facility] [place] [address] [id number] [place] [id number] Oct, [facility] [place] [address] [id number] [place] [id number] Oct, [facility] [place] [address] [id number] [place] [id number] Oct, [facility] [place] [address] [id number] [place] [id number] Oct, [facility] [place] [address] [id number] [place] [id number] Oct, [facility] [place] [address] [id number] [place] [id number] Oct, [facility] [place] [address] [id number] [place] [id number] Sep, [facility] [place] [address] [id number] [place] [id number] Aug, [facility] [place] [address] [id number] [place] [id number] Aug, [facility] [place] [address] [id number] [place] [id number] Jul, [facility] [place] [facility] [address] [facility] [id number], [place] [address] Jun, [facility] [place] [facility] [id number] [place] [address] Jun, [facility] [place] [facility] [id number] [place] [address] Jun, [facility] [place] [facility] [id number] [place] [address] Jun, [facility] [place] [facility] [id number] [place] [address] May, [facility] [place] [facility] [id number], [place] [address] May, [facility] [place] [facility] [address] [facility] [id number], [place] [address] Apr, [facility] [place] [facility] [address] [facility] [id number], [place] [address] Apr, [facility] [place] [facility] [address] [facility] [id number] [place] [address] Apr, [facility] [place] [facility] [address] [facility] [id number], [place] [address] Feb, [facility] [place] [facility] [id number] [place] [address], [place] [address] 15 Aug, 2010 [facility] [place] [facility] [address] [id number] [place] [address] 18 Jul, 2010 [facility] [place] [facility] [address] [id number] [place] [address] 30 Jun, 2010 [facility] [place] [facility] [address] [id number] [place] [address] 29 May, 2010 [facility] [place] [facility] [address] [id number] [place] [address] May, [facility] [place] [facility] [address] [id number] [place] [address] May, [facility] [place] [facility] [address] [id number] [place] [address] May, [facility] [place] [facility] [address] [address] [id number] [place] [address] May, [facility] [place] [facility] [address] [id number] [place] [address] 16 Aug, 2009 [facility] [place] [facility] [address] [id number] [place] [address] Jun, [facility] [place] [facility] [address] [facility] [id number] [place] [address] Jun, [facility] [place] [facility] [address] [id number] [place] [address] Jun, [facility] [place] [facility] [address] [id number], [place] [address] 24 May, 2009 [facility] [place] [facility] [address] [id number] [place] [address] 28 Apr, 2009 [facility] [place] [facility] [address] [id number] [place] [address] Apr, [facility] [place] [facility] [address] [id number], [place] [address] Apr, [facility] [address] [facility] [id number], [place] [address] Jan, [facility] [address] [facility] [id number], [place] [address] Oct, [facility] [address] [facility] [id number], [place] [address] May, [facility] [address] [facility] [id number], [place] [address] May, IMMUNIZATIONS No Known Immunizations SOCIAL HISTORY Never Assessed REASON FOR VISIT hypoglycemia episodes PLAN OF CARE VITAL SIGNS MEDICATIONS Unknown [...] Dialysis [facility] 2012 -Dr. Simon now [facility] Medical History Colonoscopy (polyps 2 ) [...]
--- OUTSIDE RECORDS SUMMARY | 2018-12-28 18:04 | XMS REPORT ---
Author Author ASYA SNOW [facility] Address [address] [place] [address] Care Team Providers Care Truck Technician Name Role Phone ASYA SNOW Unavailable PROBLEMS Type Condition ICD9-CM Code [id number] Code Onset Dates Condition Status SNOMED Code Problem Chronic kidney disease, stage 4 (severe) N18.4 Active 864664772 Problem Psoriasis of scalp L40.9 Active 588763899 Problem Type 2 diabetes mellitus with hyperglycemia E11.65 Active 153092117644160 Problem Fibromyalgia M79.7 Active 247523336 Problem History of DVT (deep vein thrombosis) Z86.718 Active 527859090 Problem Carpal tunnel syndrome, bilateral G56.03 Active 45178753244892776 Problem Type 2 diabetes mellitus with other diabetic kidney complication E11.29 Active 290697119 Problem Anemia in other chronic diseases classified elsewhere D63.8 Active 383411903 Problem 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 Active 265051018 Problem Paresthesia of right upper extremity R20.2 Active 78405473 Problem Bilateral lower extremity edema R60.0 Active 320343242 Problem Supplemental oxygen dependent Z99.81 Active 236906009049 Problem Sleep apnea in adult G47.33 Active 22365461 Problem Chronic pain syndrome G89.4 Active 307562441 Problem penitentiary current use of anticoagulant Z79.01 Active 876440921 Problem Essential hypertension I10 Active 15771740 Problem Gastroesophageal reflux disease without esophagitis K21.9 Active 294444452 Problem Chronic obstructive pulmonary disease, unspecified COPD type J44.9 Active 77799235 Problem 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 Active 386191519051482 Problem Primary insomnia F51.01 Active 1282977 Problem Oxygen desaturation during sleep G47.34 Active 783405779 Problem Right carpal tunnel syndrome G56.01 Active 229792603797630 Problem Diabetic polyneuropathy associated with type 2 diabetes mellitus E11.42 Active 62016021 Problem Depression, unspecified depression type F32.9 Active 38826473 ALLERGIES No Information ENCOUNTERS Encounter Location Date Diagnosis [facility] [address] [address] Feb, [facility] [address] [address] Feb, [facility] [address] [address] Jan, [facility] [address] [address] Jan, [facility] [address], [place] [address] Jan, [address] [id number] Jan, [facility] [address] [address] Jan, [facility] [address] [address] Jan, [facility] [address] [address] Jan, Essential hypertension I10 [facility] [address], [place] [address] Jan, Chronic obstructive pulmonary disease, unspecified COPD type J44.9 [facility] [address] [address] Jan, [facility] [address] [address] Jan, [facility] [address] [address] Jan, Type 2 diabetes mellitus with other diabetic kidney complication E11.29 ; Anemia in other chronic diseases classified elsewhere D63.8 ; Chronic obstructive pulmonary disease, unspecified COPD type J44.9 and BMI 60.0-69.9, adult Z68.44 [facility] [id number] [address] Jan, [facility] [id number] [place] [address] Jan, [facility] [id number] [id number] Jan, [facility] [id number] [place] [id number] Dec, [facility] [id number] [place] [phone] Dec, [facility] [id number] [place] [phone] Dec, Essential hypertension I10 ; Type 2 diabetes mellitus with other diabetic kidney complication E11.29 ; Depression, unspecified depression type F32.9 ; Supplemental oxygen dependent Z99.81 ; Chronic pain syndrome G89.4 ; Fibromyalgia M79.7 ; Carpal tunnel syndrome, bilateral G56.03 and Chronic kidney disease, stage 4 (severe) N18.4 [facility] [id number] [place] [address] Dec, Essential hypertension I10 [facility] [id number] [place] [address] November, Type 2 diabetes mellitus with other diabetic kidney complication E11.29 [facility] [id number] [address] November, Chronic pain syndrome G89.4 [facility] [address] [address] November, [facility] [id number] [place] [address] November, [facility] [id number] [place] [address] November, [facility] [id number], [place] [address] Oct, Type 2 diabetes mellitus with other diabetic kidney complication E11.29 [facility] [address], [place] [address] Oct, Primary insomnia F51.01 [place] [id number] [id number] Oct, Bilateral lower extremity edema R60.0 [facility] [id number] [place] [address] Oct, [place] [id number] [place] [address] Sep, Type 2 diabetes mellitus with other diabetic kidney complication E11.29 and Chronic obstructive pulmonary disease, unspecified COPD type J44.9 [place] [id number] [place] [address] 15 Aug, 2017 Type 2 diabetes mellitus with other diabetic kidney complication E11.29 [address] [place] [address] 12 Aug, 2017 Gastroesophageal reflux disease without esophagitis K21.9 ; 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 ; Chronic pain syndrome G89.4 ; Essential hypertension I10 and Type 2 diabetes mellitus with other diabetic kidney complication E11.29 [facility] [address], [place] [address] 08 Aug, 2017 Chronic pain syndrome G89.4 [place] [id number] [place] [address] Aug, Type 2 diabetes mellitus with other diabetic kidney complication E11.29 [facility] [address], [place] [address] Jul, Diabetic polyneuropathy associated with type 2 diabetes mellitus E11.42 [place] [id number] [place] [address] Jul, Primary insomnia F51.01 [facility] [address], [place] [address] Jul, [place] [address], [place] [address] Jul, Type 2 diabetes mellitus with other diabetic kidney complication E11.29 and Chronic obstructive pulmonary disease, unspecified COPD type J44.9 [place] [id number] [place] [address] Jul, Type 2 diabetes mellitus with other diabetic kidney complication E11.29 [facility] [facility] [id number] [place] [address] Jun, Type 2 diabetes mellitus with other diabetic kidney complication E11.29 [facility] [id number] [place] [address] 27 Jun, 2017 [place] [id number] [place] [address] Jun, Chronic obstructive pulmonary disease, unspecified COPD type J44.9 [facility] [id number] [place] [address] May, Type 2 diabetes mellitus with other diabetic kidney complication E11.29 [facility] [id number] [place] [address] May, 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 and Essential hypertension I10 [address] [place] [address] May, Anemia in other chronic diseases classified elsewhere D63.8 ; Chronic obstructive pulmonary disease, unspecified COPD type J44.9 ; Oxygen desaturation during sleep G47.34 ; Sleep apnea in adult G47.33 and Supplemental oxygen dependent Z99.[id number] [place] [address] May, Type 2 diabetes mellitus with other diabetic kidney complication E11.29 ; Essential hypertension I10 ; Chronic pain syndrome G89.4 ; BMI 40.0- 44.9, adult Z68.41 ; Gastroesophageal reflux disease without esophagitis K21.9 ; penitentiary current use of anticoagulant Z79.01 ; penitentiary 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 ; Diabetic polyneuropathy associated with type 2 diabetes mellitus E11.42 ; Edema of both legs R60.0 and Supplemental oxygen dependent Z99.81 [place] [id number] [place] [address] May, [place] [id number] [place] [address] May, Essential hypertension I10 and Gastroesophageal reflux disease without esophagitis K21.9 [place] [address] [address] May, [place] [address] [address] May, Type 2 diabetes mellitus with other diabetic kidney complication E11.29 and penitentiary current use of anticoagulant Z79.01 [facility] [id number] [place] [address] Apr, Chronic pain syndrome G89.4 and Essential hypertension I10 [facility] [facility] [id number] [place] [address] Apr, Type 2 diabetes mellitus with other diabetic kidney complication E11.29 [facility] [id number] [place] [address] Apr, Type 2 diabetes mellitus with other diabetic kidney complication E11.29 [place] [id number] [place] [address] Apr, Essential hypertension I10 [facility] [id number] [place] [address] Apr, Gastroesophageal reflux disease without esophagitis K21.9 [facility] [facility] [id number] [place] [address] Apr, Type 2 diabetes mellitus with other diabetic kidney complication E11.29 [place] [id number] [place] [address] Apr, Type 2 diabetes mellitus with other diabetic kidney complication E11.29 and 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 [facility] [address] [address] 27 Mar, 2017 Encounter for immunization Z23 and Preoperative examination Z01.818 [facility] [id number] [place] [address] Mar, [facility] [id number] [place] [address] Mar, Type 2 diabetes mellitus with other diabetic kidney complication E11.29 [place] [id number] [place] [address] 08 Mar, 2017 Type 2 diabetes mellitus with other diabetic kidney complication E11.29 [facility] [id number] [place] [address] Mar, Gastroesophageal reflux disease without esophagitis K21.9 [place] [id number] [place] [address] Mar, Essential hypertension I10 [place] [id number] [place] [address] Feb, 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 [facility] [id number] [place] [address] Feb, Type 2 diabetes mellitus with other diabetic kidney complication E11.29 [facility] [id number] [place] [address] Feb, Type 2 diabetes mellitus with other diabetic kidney complication E11.29 [facility] [id number] [place] [address] Feb, Type 2 diabetes mellitus with other diabetic kidney complication E11.29 [place] [id number] [place] [address] Feb, Gastroesophageal reflux disease without esophagitis K21.9 [facility] [id number] [place] [address] 03 Aug, 2017 Type 2 diabetes mellitus with other diabetic kidney complication E11.29 [facility] [address], [place] [address] Feb, penitentiary current use of anticoagulant Z79.01 [facility] [address], [place] [address] Jan, Type 2 diabetes mellitus with other diabetic kidney complication E11.29 [facility] [id number] [place] [address] Jan, Type 2 diabetes mellitus with other diabetic kidney complication E11.29 [facility] [address], [place] [address] Jan, Chronic pain syndrome G89.4 [facility] [id number] [address] Jan, [facility] [id number] [place] [address] Jan, [facility] [address], [place] [address] Jan, [facility] [id number] [place] [address] Jan, [facility] [address], [place] [address] Jan, Primary insomnia F51.01 ; Type 2 diabetes mellitus with other diabetic kidney complication E11.29 ; Chronic pain syndrome G89.4 and Essential hypertension I10 [facility] [address], [place] [address] Jan, Primary insomnia F51.01 [facility] [id number] [place] [address] Jan, Type 2 diabetes mellitus with other diabetic kidney complication E11.29 [facility] [address] [address] Jan, [facility] [id number] [place] [address] Jan, 2017 Chronic obstructive pulmonary disease, unspecified COPD type J44.9 [facility] [id number] [place] [address] Jan, Essential hypertension I10 ; Type 2 diabetes mellitus with other diabetic kidney complication E11.29 ; Chronic obstructive pulmonary disease, unspecified COPD type J44.9 ; Chronic kidney disease, stage 4 (severe) N18.4 ; Right carpal tunnel syndrome G56.01 ; 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 ; sanitation tank washer (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 and Diabetic polyneuropathy associated with type 2 diabetes mellitus E11.42 [place] [id number] [place] [address] Jan, Gastroesophageal reflux disease without esophagitis K21.9 [facility] [id number] [place] [address] Dec, [facility] [id number] [place] [address] Dec, [facility] [id number] [place] [address] Dec, 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 ; Chronic pain syndrome G89.4 and Essential hypertension I10 [facility] [id number] [address] Dec, [facility] [id number] [place] [address] Dec, Type 2 diabetes mellitus with other diabetic kidney complication E11.29 [facility] [id number] [address] Dec, [facility] [id number] [place] [address] Dec, Gastroesophageal reflux disease without esophagitis K21.9 [facility] [id number] [place] [address] 24 May, 2017 Type 2 diabetes mellitus with other diabetic kidney complication E11.29 [facility] [address], [place] [address] November, [facility] [id number] [place] [address] November, Type 2 diabetes mellitus with other diabetic kidney complication E11.29 [facility] [id number] [place] [address] November, [facility] [id number] [place] [address] November, Type 2 diabetes mellitus with other diabetic kidney complication E11.29 [facility] [id number] [place] [address] November, [facility] [id number] [place] [address] Oct, Essential hypertension I10 [facility] [id number] [place] [address] Oct, Psoriasis of scalp L40.9 [facility] [id number] [place] [address] Oct, Essential hypertension I10 and Chronic pain syndrome G89.4 [facility] [id number] [place] [address] Oct, [facility] [id number] [place] [address] Sep, Type 2 diabetes mellitus with other diabetic kidney complication E11.29 [facility] [address] [address] Sep, [facility] [id number] [place] [address] Sep, Type 2 diabetes mellitus with other diabetic kidney complication E11.29 [facility] [address], [place] [address] Sep, Type 2 diabetes mellitus with other diabetic kidney complication E11.29 [place] [id number] [place] [address] 09 Sep, 2017 Type 2 diabetes mellitus with other diabetic kidney complication E11.29 ; Chronic kidney disease, stage 4 (severe) N18.4 ; Chronic obstructive pulmonary disease, unspecified COPD type J44.9 ; Iron deficiency anemia due to chronic blood loss D50.0 ; penitentiary current use of anticoagulant Z79.01 ; Gastroesophageal reflux disease without esophagitis K21.9 ; Essential hypertension I10 ; Primary insomnia F51.01 ; Depression, unspecified depression type F32.9 ; Chronic pain syndrome G89.4 ; Wrist pain, right M25.531 ; Paresthesia of right upper extremity R20.2 and Psoriasis of scalp L40.9 [place] [id number] [place] [address] Sep, [address] [address] Aug, Essential hypertension I10 [place] [address] [address] Aug, History of DVT (deep vein thrombosis) Z86.718 [place] [id number] [place] [address] Aug, [place] [id number] [place] [address] Jul, [place] [id number] [place] [address] Jul, [place] [id number] [place] [address] Jul, 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 ; Chronic pain syndrome G89.4 and Chronic kidney disease, stage 4 (severe) N18.4 [place] [id number] [place] [address] Jul, [place] [address] [address] Jul, [place] [address] [address] Jul, [place] [id number] [place] [address] Jul, [place] [address] [address] Jul, [place] [id number] [place] [address] Jul, Type 2 diabetes mellitus with other diabetic kidney complication E11.29 [place] [id number] [place] [address] Jul, History of DVT (deep vein thrombosis) Z86.718 [place] [id number] [place] [address] Jun, [place] [id number] [place] [address] Jun, History of DVT (deep vein thrombosis) Z86.718 [address] [place] [id number] [place] [address] 15 Jun, 2016 Post traumatic stress disorder (PTSD) F43.10 [address] [address] 07 Jun, 2016 Type 2 diabetes mellitus with other diabetic kidney complication E11.29 ; Diabetic polyneuropathy associated with type 2 diabetes mellitus E11.42 ; Iron deficiency anemia due to chronic blood loss D50.0 ; Chronic obstructive pulmonary disease, unspecified COPD type J44.9 ; 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 ; History [...] pain M79.641 and Right wrist pain M25.531 [facility] [id number] [place] [address] May, [facility] [id number] [place] [address] May, [facility] [address] [address] May, [facility] [id number] [place] [address] May, [facility] [id number] [place] [address] May, Anemia in other chronic diseases classified elsewhere D63.8 [facility] [address] [address] May, [facility] [id number] [place] [address] Apr, [facility] [id number] [place] [address] 27 Mar, 2016 Dermatofibroma D23.9 [facility] [id number] [place] [address] 20 Mar, 2016 [facility] [id number] [place] [address] 14 Mar, 2016 Chronic pain syndrome G89.4 [facility] [id number] [place] [address] 09 Mar, 2016 [facility] [id number] [place] [address] 07 Mar, 2016 [facility] [id number] [place] [address] 06 Mar, 2016 [facility] [address] [place] [address] Feb, [facility] [address] [address] Feb, [facility] [address] [address] Feb, [facility] [id number] [place] [address] Feb, [facility] [facility] [id number] [place] [address] Feb, [facility] [id number] [place] [address] Feb, [facility] [id number] [place] [address] Feb, Type 2 diabetes mellitus with other [...] Renal failure, chronic, stage 4 (severe) N18.4 [facility] [address] [address] Feb, Skin tags, multiple acquired L91.8 [facility] [id number] [place] [address] Jan, [facility] [id number] [place] [address] [id number] Jan, Dental examination Z01.20 [facility] [id number] [place] [address] Jan, [facility] [id number] [place] [address] Jan, Type 2 diabetes mellitus with other diabetic kidney complication E11.29 ; Diabetic polyneuropathy associated with type 2 diabetes mellitus E11.42 ; Iron deficiency anemia due to chronic blood loss D50.0 ; Chronic obstructive pulmonary disease, unspecified COPD type J44.9 ; 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 ; History of DVT (deep vein thrombosis) Z86.718 ; Chronic pain syndrome G89.4 ; Oxygen desaturation during sleep G47.34 ; Sleep apnea in adult G47.33 ; Gastroesophageal reflux disease without esophagitis K21.9 ; Essential hypertension I10 ; Primary insomnia F51.01 ; Depression, unspecified depression type F32.9 ; Skin lesion L98.9 and Renal failure, chronic, stage 4 (severe) N18.4 [id number] [place] [address] Dec, Diabetes type 2, uncontrolled E11.65 [id number] [place] [address] Dec, [id number] [place] [address] Dec, Type 2 diabetes mellitus with other diabetic kidney complication E11.29 ; Diabetic polyneuropathy associated with type 2 diabetes mellitus E11.42 ; Iron deficiency anemia due to chronic blood loss D50.0 ; Chronic obstructive pulmonary disease, unspecified COPD type J44.9 ; 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 ; History of DVT (deep vein thrombosis) Z86.718 ; Chronic pain syndrome G89.4 ; Oxygen desaturation during sleep G47.34 ; Sleep apnea in adult G47.33 ; Gastroesophageal reflux disease without esophagitis K21.9 ; Essential hypertension I10 ; Primary insomnia F51.01 and Depression, unspecified depression type F32.9 [facility] [address] [id number] [id number] Dec, Dental caries K02.9 [facility] [address] [id number] [place] [address] [id number] Dec, [facility] [address] [id number] [place] [id number] Dec, Dental examination Z01.20 [facility] [address] [id number] [id number] November, Dental examination Z01.20 and Dental caries K02.9 [facility] [address] [id number][place] [id number] Oct, [facility] [address] [id number] [place] [address] [id number] Oct, [facility] [address] [id number] [place] [address] [id number] Sep, [facility] [id number] [place] [address] [id number] Sep, [facility] [address] [id number] [place] [address] [id number] Sep, [facility] [address] [id number] [place] [address] [id number] Sep, Other chronic pain 338.29 [facility] [address] [id number] [place] [address] [id number] Aug, Diabetes type 2, uncontrolled E11.65 and Morbid obesity due to excess calories E66.01 [facility] [address] [id number] [place] [address] [id number] Aug, Hair loss L65.9 [facility] [address] [id number][place] [id number] Aug, [facility] [address] [id number] [place] [address] [id number] Jul, [facility] [address] [id number], [place] [id number] Jul, [facility] [id number] [place] [address] [id number] Jun, [facility] [address] [id number] [place] [address] [id number] Jun, Hair loss L65.9 and Disorder of the skin and subcutaneous tissue, unspecified L98.9 [facility] [id number] [place] [address] [id number] May, Type 2 diabetes mellitus with other diabetic kidney complication E11.29 ; Type 2 diabetes mellitus with hyperglycemia E11.65 ; Morbid obesity due to excess calories E66.01 and Essential hypertension I10 [facility] [id number] [place] [address] [id number] May, Diabetes type 2, uncontrolled E11.65 ; Encounter for immunization Z23 and Morbid obesity due to excess calories E66.01 [facility] [id number] [place] [address] [id number] May, [facility] [address] [address] Apr, [address] [id number] Apr, Hyperglycemia R73.[address] [id number] Apr, [address] [id number] Apr, Depression F32.9 ; Encounter for immunization Z23 ; Hyperglycemia R73.9 and Anemia in other chronic diseases classified elsewhere D63.8 [facility] [place] [id number] [place] [address] [id number] Mar, [id number] [place] [address] [id number] Feb, Positive occult stool blood test 792.1 [id number] [place] [address] [id number] Feb, Depression 311 ; Other chronic pain 338.29 and Diabetes with renal manifestations, type II or unspecified type, not stated as uncontrolled 250.40 [facility] [id number] [place] [address] Feb, Occult blood in stools 792.1 [id number] [place] [address] [id number] Feb, Anemia 285.9 ; Occult blood positive stool 792.1 ; Unspecified essential hypertension 401.9 and Other chronic pain 338.29 [facility] [id number] [id number] Feb, [facility] [id number] [place] [address] [id number] Feb, Anemia 285.9 [facility] [id number] [place] [address] [id number] Feb, [facility] [id number] [place] [address] [id number] Feb, [facility] [id number] [place] [address] [id number] Feb, Diabetes with renal manifestations, type II or unspecified type, not stated as uncontrolled 250.40 ; Other chronic pain 338.29 ; Unspecified essential hypertension 401.9 ; Anemia 285.9 and Depression 311 [facility] [id number] [place] [address] [id number] Jan, [facility] [id number] [place] [address] [id number] Jan, Anemia 285.9 and Follow up V67.9 [facility] [id number] [place] [address] [id number] Jan, [facility] [id number] [place] [address] [id number] Jan, [facility] [id number] [place] [address] [id number] Jan, [facility] [id number] [place] [address] [id number] Dec, [facility] [id number] [place] [address] Oct, [facility] [id number] [place] [phone] Oct, [facility] [id number] [place] [address] Sep, [facility] [address] [id number][place] [id number] Sep, [facility] [id number] [place] [address] Sep, [facility] [address] [id number] [place] [id number] Aug, [facility] [place] [facility] [address] [facility] [id number], [place] [address] Aug, [facility] [place] [facility] [address] [facility] [id number] [place] [address] Aug, [facility] [address] [id number], [place] [id number] Aug, [facility] [place] [facility] [address] [facility] [id number] [place] [address] Aug, [facility] [place] [facility] [address] [facility] [id number][place] [address] Aug, [facility] [address] [facility] [facility] [id number][place] [id number] Aug, [facility] [place] [facility] [address] [address] Aug, [facility] [address] [facility] [facility] [id number], [place] [id number] Jul, [facility] [place] [facility] [address], [place] [address] Jul, [facility] [place] [facility] [address] [facility] [id number][place] [address] Jul, [facility] [address] [facility] [facility] [id number], [place] [id number] Jul, [facility] [place] [facility] [address] [facility] [id number][place] [address] Jul, [facility] [address] [facility] [facility] [id number], [place] [id number] Jul, [facility] [place] [facility] [address] [facility] [id number][place] [address] Jul, [facility] [address] [id number], [place] [id number] Jun, [facility] [address] [facility] [facility] [id number], [place] [id number] Jun, [facility] [place] [facility] [address] [facility] [id number], [place] [address] Jun, [facility] [place] [facility] [address] [facility] [id number][place] [address] Jun, [facility] [address] [facility] [facility] [id number], [place] [id number] Jun, [facility] [place] [facility] [address] [facility] [id number][place] [address] Jun, [facility] [address] [facility] [facility] [id number], [place] [id number] May, [facility] [place] [facility] [address] [facility] [id number][place] [address] May, [facility] [place] [facility] [address] [address] May, [facility] [address] [facility] [facility] [id number], [place] [id number] Apr, [facility] [place] [facility] [address] [facility] [id number][place] [address] Apr, [facility] [address] [facility] [facility] [id number], [place] [id number] Apr, [facility] [address] [facility] [facility] [id number], [place] [id number] Apr, [facility] [place] [facility] [address] [facility] [id number], [place] [address] Apr, [facility] [place] [facility] [address] [facility] [id number][place] [address] Apr, [facility] [address] [facility] [facility] [id number], [place] [id number] Mar, [facility] [place] [facility] [address] [facility] [id number][place] [address] Mar, [facility] [address] [facility] [facility] [id number], [place] [id number] Mar, [facility] [place] [facility] [address] [id number], [place] [address] Mar, [facility] [address] [id number] [place] [id number] Mar, [facility] [place] [facility] [address] [facility] [id number] [place] [address] Mar, [facility] [address] [id number] [place] [id number] Mar, [facility] [place] [facility] [address] [facility] [id number] [place] [address] Mar, [facility] [address] [id number] [place] [id number] Mar, [facility] [place] [facility] [address] [facility] [id number], [place] [address] Mar, [facility] [address] [facility] [facility] [id number], [place] [id number] Feb, [facility] [place] [facility] [address] [facility] [id number], [place] [address] Feb, [facility] [address] [facility] [facility] [id number], [place] [id number] Jan, [facility] [place] [facility] [address] [facility] [id number], [place] [address] Jan, [facility] [address] [facility] [facility] [id number], [place] [id number] Jan, [facility] [place] [facility] [address] [facility] [id number][place] [address] Jan, [facility] [address] [facility] [facility] [id number], [place] [id number] Jan, [facility] [place] [facility] [address] [facility] [id number] [place] [address] Jan, [facility] [place] [facility] [address] [facility] [id number], [place] [address] Dec, [facility] [place] [facility] [address] [facility] [id number], [place] [address] Dec, [facility] [address] [id number] [place] [id number] November, [facility] [place] [facility] [address] [id number] [place] [address] November, [facility] [address] [id number] [place] [id number] November, [facility] [place] [facility] [address] [id number] [place] [address] November, [facility] [address] [id number] [place] [id number] Oct, [facility] [place] [facility] [address] [id number] [place] [address] Oct, [facility] [place] [facility] [address] [facility] [id number] [place] [address] Oct, [facility] [place] [facility] [address] [facility] [id number] [place] [address] Oct, [facility] [place] [facility] [address] [facility] [id number], [place] [address] Oct, [facility] [place] [facility] [address] [facility] [id number] [place] [address] Oct, [facility] [address] [id number], [place] [id number] Sep, [facility] [address] [id number], [place] [id number] Sep, [facility] [place] [facility] [address] [id number], [place] [address] Sep, [facility] [place] [facility] [address] [id number] [place] [address] Sep, [facility] [address] [id number] [place] [id number] Sep, [facility] [place] [facility] [address] [facility] [id number] [place] [address] Sep, [facility] [place] [facility] [address] [id number] [address] Aug, [facility] [place] [facility] [address] [facility] [id number][place] [address] Aug, [facility] [address] [facility] [facility] [id number], [place] [id number] Aug, [facility] [address] [facility] [facility] [id number] [place] [id number] Aug, [facility] [place] [facility] [address] [facility] [id number][place] [address] Aug, [facility] [address] [facility] [facility] [id number] [place] [id number] Aug, [facility] [place] [facility] [address] [address] Aug, [facility] [id number], [place] [id number] Aug, [facility] [place] [facility] [address] [address] Aug, [facility] [address] [id number], [place] [id number] Aug, [facility] [place] [facility] [address] [address] Aug, [facility] [address] [id number], [place] 138197773 Aug, [facility] [place] [facility] [address] [address] Aug, [facility] [place] [facility] [address] [id number] [address] Jul, [facility] [address] [facility] [id number], [place] 185620962 Jun, [facility] [place] [facility] [address] [id number] [address] Jun, [facility] [place] [facility] [address] [address] Jun, [facility] [place] [facility] [address] [id number] [place] [address] Jun, [facility] [address] [id number], [place] 957868877 Jun, [facility] [place] [facility] [address] [facility] [id number] [place] [address] Jun, [facility] [place] [facility] [address] [id number] [place] [address] Jun, [facility] [address] [facility] [id number] [place] [id number] Jun, [facility] [place] [facility] [address] [id number], [place] [address] Jun, [facility] [place] [facility] [address] [facility] [id number], [place] [address] May, [facility] [address] [id number], [place] [id number] May, [facility] [place] [facility] [address] [facility] [id number], [place] [address] May, [facility] [place] [facility] [address] [facility] [id number][place] [address] May, [facility] [place] [facility] [address] [facility] [id number][place] [address] May, [facility] [place] [facility] [address] [facility] [id number], [place] [address] May, [facility] [address] [facility] [facility] [id number], [place] [id number] May, [facility] [place] [facility] [address] [facility] [id number][place] [address] May, [facility] [address] [facility] [id number], [place] [id number] May, [facility] [place] [facility] [address] [facility] [id number], [place] [address] May, [facility] [address] [facility] [id number], [place] [id number] Apr, [facility] [place] [facility] [address] [facility] [id number][place] [address] Apr, [facility] [place] [facility] [address] [facility] [id number][place] [address] Apr, [facility] [address] [facility] [id number], [place] [id number] Apr, [facility] [place] [facility] [address] [facility] [id number][place] [address] Apr, [facility] [place] [facility] [address] [facility] [id number][place] [address] Apr, [facility] [id number], [place] [id number] Apr, [facility] [place] [facility] [address] [address] Apr, [facility] [place] [facility] [address], [place] [address] Apr, [facility] [place] [facility] [address] [address] Apr, [facility] [address]00565100[place] 619[address]1858 Apr, [facility] [place] [facility] [address] [facility] [id number], [place] [address] Apr, [facility] [address] [facility] [id number], [place] [id number] Apr, [facility] [place] [facility] [address] [facility] [id number][place] [address] Apr, [facility] [address] [facility] [id number], [place] [id number] Apr, [facility] [place] [facility] [address] [facility] [id number], [place] [address] Apr, [facility] [place] [facility] [address] [facility] [id number][place] [address] Apr, [facility] [address] [facility] [id number][place] [address] Apr, [facility] [address] [id number] [place] [id number] Apr, [facility] [address] [facility] [id number], [place] [address] Mar, [facility] [address] [facility] [id number][place] [address] Mar, [facility] [address] [id number] [place] [id number] Mar, [facility] [address] [id number] [place] [id number] Mar, [facility] [address] [id number] [place] [id number] Mar, [facility] [address] [id number] [place] [id number] Feb, [facility] [address] [id number] [place] [id number] Feb, [facility] [address] [id number] [place] [id number] Feb, [facility] [address] [facility] [id number], [place] [address] Feb, [facility] [place] [address] [id number] [place] [id number] Feb, [facility] [place] [address] [id number] [place] [id number] Feb, [facility] [place] [address] [id number] [place] [id number] Feb, [facility] [place] [address] [id number] [place] [id number] Feb, [facility] [place] [address] [id number] [place] [id number] Feb, [facility] [place] [address] [id number] [place] [id number] Jan, [facility] [place] [address] [id number] [place] [id number] Jan, [facility] [place] [address] [id number] [place] [id number] Jan, [facility] [place] [address] [id number] [place] [id number] Jan, [facility] [place] [address] [id number] [place] [id number] Jan, [facility] [place] [id number] [place] [address] Jan, [facility] [place] [address] [id number] [place] [id number] Jan, [facility] [place] [address] [id number] [place] [id number] Jan, [facility] [place] [address] [id number] [place] [id number] Dec, [facility] [place] [address] [id number] [place] [id number] November, [facility] [place] [address] [id number] [place] [id number] November, [facility] [place] [address] [id number] [place] [id number] November, [facility] [place] [address] [id number] [place] [id number] November, [facility] [place] [address] [id number] [place] [id number] November, [facility] [place] [address] [id number] [place] [id number] November, [facility] [place] [address] [id number] [place] [id number] Jul, [facility] [place] [address] [id number] [place] [id number] Jul, [facility] [place] [address] [id number] [place] [id number] Jul, [facility] [place] [address] [id number] [place] [id number] Jun, [facility] [place] [id number] [address] Jun, [facility] [place] [address] [id number][place] [id number] May, [facility] [address] [facility] [id number], [place] [address] May, [facility] [place] [address] [id number][place] [id number] May, [facility] [address] [facility] [id number], [place] [address] May, [facility] [place] [address] [id number][place] [id number] May, [facility] [address] [facility] [id number][place] [address] May, [facility] [place] [address] [id number][place] [id number] Apr, [facility] [id number] [address] Apr, [facility] [address] [facility] [id number], [place] [address] Apr, [facility] [place] [address] [id number][place] [id number] Apr, [facility] [place] [address] [id number][place] [id number] Apr, [facility] [id number] [address] Apr, [facility] [address] [facility] [id number], [place] [address] Apr, [facility] [place] [address] [id number][place] [id number] Apr, [facility] [address] [facility] [id number], [place] [address] Apr, [facility] [place] [address] [id number][place] [id number] Apr, [facility] [place] [address] [id number] [place] [address] [place] [id number] Apr, [facility] [place] [address] [id number] [place] [id number] Mar, [facility] [place] [address] [id number] [place] [id number] Feb, [facility] [place] [address] [id number] [place] [id number] Jan, [facility] [place] [address] [id number] [place] [id number] Dec, [facility] [place] [address] [id number] [place] [id number] Dec, [facility] [place] [address] [id number] [place] [id number] Dec, [facility] [place] [address] [id number] [place] [id number] Dec, [facility] [place] [address] [id number] [place] [id number] Dec, [facility] [place] [address] [id number] [place] [id number] November, [facility] [place] [address] [id number] [place] [id number] November, [facility] [place] [address] [id number] [place] [id number] November, [facility] [place] [address] [facility] [id number] [address] November, [facility] [place] [address] [id number] [place] [id number] November, [facility] [place] [address] [id number] [place] [id number] November, [facility] [place] [address] [id number] [place] [id number] Oct, [facility] [place] [address] [id number] [place] [id number] Oct, [facility] [place] [address] [id number] [place] [id number] Oct, [facility] [place] [address] [id number] [place] [id number] Oct, [facility] [place] [address] [id number] [place] [id number] Oct, [facility] [place] [address] [id number] [place] [id number] Oct, [facility] [place] [address] [id number] [place] [id number] Sep, [facility] [place] [address] [id number] [place] [id number] Aug, [facility] [place] [address] [id number] [place] [id number] Aug, [facility] [place] [address] [id number] [place] [id number] Jul, [facility] [place] [facility] [address] [facility] [id number], [place] [address] Jun, [facility] [place] [facility] [address] [id number] [address] Jun, [facility] [place] [facility] [id number] [address] Jun, [facility] [place] [facility] [id number] [address] Jun, [facility] [place] [facility] [id number], [place] [address] May, [facility] [place] [facility] [id number] [address] May, [facility] [place] [facility] [id number] [address] Apr, [facility] [place] [facility] [address] [id number] [address] Apr, [facility] [place] [facility] [id number] [address] Apr, [facility] [place] [facility] [id number], [place] [address] Feb, [facility] [place] [facility] [id number] [place] [address] 15 Aug, 2010 [facility] [address] [id number] [place] [address] 18 Jul, 2010 [facility] [place] [facility] [address] [id number] [place] [address] 30 Jun, 2010 [facility] [address] [id number] [place] [address] 29 May, 2010 [facility] [place] [facility] [address] [id number] [place] [address] May, [facility] [address] [id number] [place] [address], [place] [address] May, [facility] [address] [facility] [id number] [place] [address] May, [facility] [address] [facility] [id number] [place] [address] May, [facility] [address] [id number] [place] [address] 16 Aug, 2009 [facility] [address] [facility] [id number] [place] [address] Jun, [facility] [address] [facility] [id number] [place] [address] Jun, [facility] [place] [facility] [address] [facility] [id number] [place] [address] Jun, [facility] [address] [id number] [address] 24 May, 2009 [facility] [place] [facility] [address] [id number] [place] [address] 28 Apr, 2009 [facility] [place] [facility] [address] [facility] [id number] [place] [address] Apr, [facility] [address] [facility] [id number], [place] [address] Apr, [facility] [address] [facility] [id number], [place] [address] Jan, [facility] [address] [facility] [id number], [place] [address] Oct, [facility] [address] [facility] [id number], [place] [address] May, [facility] [address] [facility] [id number], [place] [address] May, IMMUNIZATIONS No Known Immunizations SOCIAL HISTORY Never Assessed REASON FOR VISIT Insulin orders and lab orders PLAN OF CARE VITAL SIGNS MEDICATIONS Medication Instructions Dosage Frequency Start Date End Date Duration Status Insulin Glargine 100 UNIT/ML Subcutaneous at bedtime 20 units Active Aspercreme w/Lidocaine 4 % Externally to coccyx 2 times a day 1 application to affected area as needed 12h Jan, Active NovoLog Flexpen 100 UNIT/ML Subcutaneous 8u ac as directed Jan, Active RESULTS No Results [...] Dialysis [facility] Reveles 2012 -Dr. Simon now [facility] Medical History Colonoscopy (polyps 2 ) [...]
--- OUTSIDE RECORDS SUMMARY | 2018-12-28 18:05 | XMS REPORT ---
Author Author ASYA SNOW [facility] Address [address] [place] [address] Care Team Providers Care Information Management Manager Name Role Phone ASYA SNOW Unavailable PROBLEMS Type Condition ICD9-CM Code JOC45-YN Code Onset Dates Condition Status SNOMED Code Problem Chronic kidney disease, stage 4 (severe) N18.4 Active 312618572 Problem Psoriasis of scalp L40.9 Active 653645520 Problem Type 2 diabetes mellitus with hyperglycemia E11.65 Active 835161917136439 Problem Fibromyalgia M79.7 Active 527341207 Problem History of DVT (deep vein thrombosis) Z86.718 Active 232064448 Problem Carpal tunnel syndrome, bilateral G56.03 Active 59573427163435512 Problem Type 2 diabetes mellitus with other diabetic kidney complication E11.29 Active 146683438 Problem Anemia in other chronic diseases classified elsewhere D63.8 Active 757633998 Problem 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 Active 484410374 Problem Paresthesia of right upper extremity R20.2 Active 44267798 Problem Bilateral lower extremity edema R60.0 Active 287450150 Problem Supplemental oxygen dependent Z99.81 Active 877479447067 Problem Sleep apnea in adult G47.33 Active 41992063 Problem Chronic pain syndrome G89.4 Active 543617805 Problem jail current use of anticoagulant Z79.01 Active 122905527 Problem Essential hypertension I10 Active 14797631 Problem Gastroesophageal reflux disease without esophagitis K21.9 Active 834036216 Problem Chronic obstructive pulmonary disease, unspecified COPD type J44.9 Active 57461416 Problem 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 Active 940570359254022 Problem Primary insomnia F51.01 Active 7296902 Problem Oxygen desaturation during sleep G47.34 Active 113691178 Problem Right carpal tunnel syndrome G56.01 Active 536154854269433 Problem Diabetic polyneuropathy associated with type 2 diabetes mellitus E11.42 Active 70639372 Problem Depression, unspecified depression type F32.9 Active 02422643 ALLERGIES No Information ENCOUNTERS Encounter Location Date Diagnosis [facility] [address], [place] [address] Feb, [facility] [address], [place] [address] Feb, [facility] [address], [place] [address] Jan, [facility] [address], [place] [address] Jan, [facility] [address], [place] [address] Jan, [address] [id number] Jan, [facility] [address], [place] [address] Jan, [facility] [address], [place] [address] Jan, [facility] [address], [place] [address] Jan, Essential hypertension I10 [facility] [address], [place] [address] Jan, Chronic obstructive pulmonary disease, unspecified COPD type J44.9 [facility] [address], [place] [address] Jan, [facility] [address], [place] [address] Jan, [facility] [address], [place] [address] Jan, Type 2 diabetes mellitus with other diabetic kidney complication E11.29 ; Anemia in other chronic diseases classified elsewhere D63.8 ; Chronic obstructive pulmonary disease, unspecified COPD type J44.9 and BMI 60.0-69.9, adult Z68.44 [facility] [id number] [address] Jan, [facility] [id number] [place] [address] Jan, [facility] [id number] [id number] Jan, [facility] [id number] [place] [id number] Dec, [facility] [id number] [place] [id number] Dec, [facility] [id number] [place] [id number] Dec, Essential hypertension I10 ; Type 2 diabetes mellitus with other diabetic kidney complication E11.29 ; Depression, unspecified depression type F32.9 ; Supplemental oxygen dependent Z99.81 ; Chronic pain syndrome G89.4 ; Fibromyalgia M79.7 ; Carpal tunnel syndrome, bilateral G56.03 and Chronic kidney disease, stage 4 (severe) N18.4 [facility] [address] [place] [address] Dec, Essential hypertension I10 [facility] [id number] [place] [address] November, Type 2 diabetes mellitus with other diabetic kidney complication E11.29 [facility] [id number], [place] [address] November, Chronic pain syndrome G89.4 [facility] [address], [place] [address] November, [facility] [id number] [place] [address] November, [facility] [id number] [place] [address] November, [facility] [id number], [place] [address] Oct, Type 2 diabetes mellitus with other diabetic kidney complication E11.29 [facility] [address], [place] [address] Oct, Primary insomnia F51.01 [place] [address] [id number] [id number] Oct, Bilateral lower extremity edema R60.0 [facility] [address] [place] [address] Oct, [place] [id number] [place] [address] Sep, Type 2 diabetes mellitus with other diabetic kidney complication E11.29 and Chronic obstructive pulmonary disease, unspecified COPD type J44.9 [place] [address] [place] [address] 15 Aug, 2017 Type 2 diabetes mellitus with other diabetic kidney complication E11.29 [address] [place] [address] 12 Aug, 2017 Gastroesophageal reflux disease without esophagitis K21.9 ; 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 manager current use of anticoagulant Z79.01 ; Chronic pain syndrome G89.4 ; Essential hypertension I10 and Type 2 diabetes mellitus with other diabetic kidney complication E11.29 [place] [address], [place] [address] 08 Aug, 2017 Chronic pain syndrome G89.4 [place] [address] [place] [address] Aug, Type 2 diabetes mellitus with other diabetic kidney complication E11.29 [place] [address], [place] [address] Jul, Diabetic polyneuropathy associated with type 2 diabetes mellitus E11.42 [place] [address] [place] [address] Jul, Primary insomnia F51.01 [facility] [address], [place] [address] Jul, [place] [address], [place] [address] Jul, Type 2 diabetes mellitus with other diabetic kidney complication E11.29 and Chronic obstructive pulmonary disease, unspecified COPD type J44.9 [place] [address] [place] [address] Jul, Type 2 diabetes mellitus with other diabetic kidney complication E11.29 [place] [id number] [place] [address] Jun, Type 2 diabetes mellitus with other diabetic kidney complication E11.29 [place] [id number] [place] [address] 27 Jun, 2017 [place] [id number] [place] [address] Jun, Chronic obstructive pulmonary disease, unspecified COPD type J44.9 [place] [id number] [place] [address] May, Type 2 diabetes mellitus with other diabetic kidney complication E11.29 [place] [id number] [place] [address] May, 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 manager current use of anticoagulant Z79.01 and Essential hypertension I10 [address] [place] [address] May, Anemia in other chronic diseases classified elsewhere D63.8 ; Chronic obstructive pulmonary disease, unspecified COPD type J44.9 ; Oxygen desaturation during sleep G47.34 ; Sleep apnea in adult G47.33 and Supplemental oxygen dependent Z99.[address] [place] [address] May, Type 2 diabetes mellitus with other [...] legs R60.0 and Supplemental oxygen dependent Z99.81 [place] [id number] [place] [address] May, [place] [id number] [place] [address] May, Essential hypertension I10 and Gastroesophageal reflux disease without esophagitis K21.9 [place] [address] [address] May, [place] [address] [address] May, Type 2 diabetes mellitus with other diabetic kidney complication E11.29 and jail current use of anticoagulant Z79.01 [place] [id number] [place] [address] Apr, Chronic pain syndrome G89.4 and Essential hypertension I10 [place] [id number] [place] [address] Apr, Type 2 diabetes mellitus with other diabetic kidney complication E11.29 [place] [id number] [place] [address] Apr, Type 2 diabetes mellitus with other diabetic kidney complication E11.29 [place] [id number] [place] [address] Apr, Essential hypertension I10 [place] [id number] [place] [address] Apr, Gastroesophageal reflux disease without esophagitis K21.9 [place] [id number] [place] [address] Apr, Type 2 diabetes mellitus with other diabetic kidney complication E11.29 [place] [id number] [place] [address] Apr, Type 2 diabetes mellitus with other diabetic kidney complication E11.29 and 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 manager current use of anticoagulant Z79.01 [facility] [address], [place] [address] 27 Mar, 2017 Encounter for immunization Z23 and Preoperative examination Z01.818 [facility] [id number] [place] [address] Mar, [facility] [id number] [place] [address] Mar, Type 2 diabetes mellitus with other diabetic kidney complication E11.29 [place] [id number] [place] [address] 08 Mar, 2017 Type 2 diabetes mellitus with other diabetic kidney complication E11.29 [place] [id number] [place] [address] Mar, Gastroesophageal reflux disease without esophagitis K21.9 [place] [id number] [place] [address] Mar, Essential hypertension I10 [place] [id number] [place] [address] Feb, 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 manager current use of anticoagulant Z79.01 [facility] [id number] [place] [address] Feb, Type 2 diabetes mellitus with other diabetic kidney complication E11.29 [facility] [id number] [place] [address] Feb, Type 2 diabetes mellitus with other diabetic kidney complication E11.29 [facility] [id number] [place] [address] Feb, Type 2 diabetes mellitus with other diabetic kidney complication E11.29 [place] [id number] [place] [address] Feb, Gastroesophageal reflux disease without esophagitis K21.9 [facility] [id number] [place] [address] 03 Aug, 2017 Type 2 diabetes mellitus with other diabetic kidney complication E11.29 [facility] [address], [place] [address] Feb, jail current use of anticoagulant Z79.01 [facility] [address], [place] [address] Jan, Type 2 diabetes mellitus with other diabetic kidney complication E11.29 [facility] [id number] [place] [address] Jan, Type 2 diabetes mellitus with other diabetic kidney complication E11.29 [facility] [address], [place] [address] Jan, Chronic pain syndrome G89.4 [facility] [id number], [place] [address] Jan, [facility] [id number] [place] [address] Jan, [facility] [address], [place] [address] Jan, [facility] [id number] [place] [address] Jan, [facility] [address], [place] [address] Jan, Primary insomnia F51.01 ; Type 2 diabetes mellitus with other diabetic kidney complication E11.29 ; Chronic pain syndrome G89.4 and Essential hypertension I10 [facility] [address], [place] [address] Jan, Primary insomnia F51.01 [facility] [id number] [place] [address] Jan, Type 2 diabetes mellitus with other diabetic kidney complication E11.29 [facility] [address], [place] [address] Jan, [facility] [address] [place] [address] Jan, 2017 Chronic obstructive pulmonary disease, unspecified COPD type J44.9 [facility] [id number] [place] [address] Jan, Essential hypertension I10 ; Type 2 diabetes mellitus with other diabetic kidney complication E11.29 ; Chronic obstructive pulmonary disease, unspecified COPD type J44.9 ; Chronic kidney disease, stage 4 (severe) N18.4 ; Right carpal tunnel syndrome G56.01 ; 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 ; 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 manager (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 and Diabetic polyneuropathy associated with type 2 diabetes mellitus E11.42 [place] [id number] [place] [address] Jan, Gastroesophageal reflux disease without esophagitis K21.9 [facility] [id number] [place] [address] Dec, [facility] [id number] [place] [address] Dec, [facility] [id number] [place] [address] Dec, 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 manager current use of anticoagulant Z79.01 ; Chronic pain syndrome G89.4 and Essential hypertension I10 [facility] [address], [place] [address] Dec, [facility] [id number] [place] [address] Dec, Type 2 diabetes mellitus with other diabetic kidney complication E11.29 [facility] [address], [place] [address] Dec, [facility] [id number] [place] [address] Dec, Gastroesophageal reflux disease without esophagitis K21.9 [facility] [id number] [place] [address] 24 May, 2017 Type 2 diabetes mellitus with other diabetic kidney complication E11.29 [facility] [address], [place] [address] November, [facility] [address] [place] [address] November, Type 2 diabetes mellitus with other diabetic kidney complication E11.29 [facility] [address] [place] [address] November, [facility] [address] [place] [address] November, Type 2 diabetes mellitus with other diabetic kidney complication E11.29 [facility] [id number] [place] [address] November, [facility] [id number] [place] [address] Oct, Essential hypertension I10 [facility] [id number] [place] [address] Oct, Psoriasis of scalp L40.9 [facility] [id number] [place] [address] Oct, Essential hypertension I10 and Chronic pain syndrome G89.4 [facility] [address] [place] [address] Oct, [facility] [address] [place] [address] Sep, Type 2 diabetes mellitus with other diabetic kidney complication E11.29 [facility] [address], [place] [address] Sep, [facility] [id number] [place] [address] Sep, Type 2 diabetes mellitus with other diabetic kidney complication E11.29 [facility] [address], [place] [address] Sep, Type 2 diabetes mellitus with other diabetic kidney complication E11.29 [place] [id number] [place] [address] 09 Sep, 2017 Type 2 diabetes mellitus with other diabetic kidney complication E11.29 ; Chronic kidney disease, stage 4 (severe) N18.4 ; Chronic obstructive pulmonary disease, unspecified COPD type J44.9 ; Iron deficiency anemia due to chronic blood loss D50.0 ; jail current use of anticoagulant Z79.01 ; Gastroesophageal reflux disease without esophagitis K21.9 ; Essential hypertension I10 ; Primary insomnia F51.01 ; Depression, unspecified depression type F32.9 ; Chronic pain syndrome G89.4 ; Wrist pain, right M25.531 ; Paresthesia of right upper extremity R20.2 and Psoriasis of scalp L40.9 [place] [id number] [place] [address] Sep, [address] [address] Aug, Essential hypertension I10 [place] [address] [address] Aug, History of DVT (deep vein thrombosis) Z86.718 [place] [id number] [place] [address] Aug, [place] [id number] [place] [address] Jul, [place] [id number] [place] [address] Jul, [place] [id number] [place] [address] Jul, 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 manager 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 Z79.01 ; Chronic pain syndrome G89.4 and Chronic kidney disease, stage 4 (severe) N18.4 [place] [id number] [place] [address] Jul, [place] [address] [address] Jul, [place] [address], [place] [address] Jul, [place] [address] [place] [address] Jul, [place] [address], [place] [address] Jul, [place] [id number] [place] [address] Jul, Type 2 diabetes mellitus with other diabetic kidney complication E11.29 [place] [id number] [place] [address] Jul, History of DVT (deep vein thrombosis) Z86.718 [place] [address] [place] [address] Jun, [place] [id number] [place] [address] Jun, History of DVT (deep vein thrombosis) Z86.718 [place] [id number] [place] [address] 15 Jun, 2016 Post traumatic stress disorder (PTSD) F43.[address], [place] [address] 07 Jun, 2016 Type 2 diabetes mellitus [...] pain M79.641 and Right wrist pain M25.531 [facility] [id number] [place] [address] May, [facility] [id number] [place] [address] May, [facility] [address] [address] May, [facility] [id number] [place] [address] May, [facility] [id number] [place] [address] May, Anemia in other chronic diseases classified elsewhere D63.8 [facility] [address] [address] May, [facility] [id number] [place] [address] Apr, [facility] [id number] [place] [address] 27 Mar, 2016 Dermatofibroma D23.9 [facility] [id number] [place] [address] 20 Mar, 2016 [facility] [id number] [place] [address] 14 Mar, 2016 Chronic pain syndrome G89.4 [facility] [id number] [place] [address] 09 Mar, 2016 [facility] [id number] [place] [address] 07 Mar, 2016 [facility] [id number] [place] [address] 06 Mar, 2016 [facility] [address] [place] [address] Feb, [facility] [address], [place] [address] Feb, [facility] [address], [place] [address] Feb, [facility] [address] [place] [address] Feb, [facility] [id number] [place] [address] Feb, [facility] [id number] [place] [address] Feb, [facility] [id number] [place] [address] Feb, Type 2 diabetes mellitus with other [...] failure, chronic, stage 4 (severe) N18.4 [facility] [address], [place] [address] Feb, Skin tags, multiple acquired L91.8 [facility] [id number] [place] [address] Jan, [facility] [address] [place] [id number] Jan, Dental examination Z01.20 [facility] [id number] [place] [address] Jan, [facility] [address] [place] [address] Jan, Type 2 diabetes mellitus with other [...] Renal failure, chronic, stage 4 (severe) N18.4 [place] [id number] [place] [address] Dec, Diabetes type 2, uncontrolled E11.65 [place] [id number] [place] [address] Dec, [place] [id number] [place] [address] Dec, Type 2 diabetes mellitus with other [...] [facility] [address] [id number] [id number] Dec, Dental caries K02.9 [facility] [id number] [place] [id number] Dec, [facility] [address] [id number] [id number] Dec, Dental examination Z01.20 [facility] [address] [id number] [id number] November, Dental examination Z01.20 and Dental caries K02.9 [facility] [address] [id number] [id number] Oct, [facility] [id number] [place] [id number] Oct, SURG[facility] [facility] [address] [id number] [place] [address] [id number] Sep, [facility] [address] [id number] [place] [address] [id number] Sep, [facility] [address] [id number] [place] [address] [id number] Sep, [facility] [address] [id number] [place] [address] [id number] Sep, Other chronic pain 338.29 [facility] [address] [id number] [place] [address] [id number] Aug, Diabetes type 2, uncontrolled E11.65 and Morbid obesity due to excess calories E66.01 [facility] [address] [id number] [place] [address] [id number] Aug, Hair loss L65.9 [facility] [address] [id number][place] [id number] Aug, [facility] [address] [id number] [place] [address] [id number] Jul, [facility] [address] [id number], [place] [id number] Jul, [facility] [address] [id number] [place] [address] [id number] Jun, [facility] [address] [id number] [place] [address] [id number] Jun, Hair loss L65.9 and Disorder of the skin and subcutaneous tissue, unspecified L98.9 [facility] [id number] [place] [address] [id number] May, Type 2 diabetes mellitus with other diabetic kidney complication E11.29 ; Type 2 diabetes mellitus with hyperglycemia E11.65 ; Morbid obesity due to excess calories E66.01 and Essential hypertension I10 [facility] [id number] [place] [address] [id number] May, Diabetes type 2, uncontrolled E11.65 ; Encounter for immunization Z23 and Morbid obesity due to excess calories E66.01 [facility] [id number] [place] [address] [id number] May, [facility] [address] [address] Apr, [address] [id number] Apr, Hyperglycemia R73.[address] [id number] Apr, [address] [id number] Apr, Depression F32.9 ; Encounter for immunization Z23 ; Hyperglycemia R73.9 and Anemia in other chronic diseases classified elsewhere D63.8 [facility] [id number] [place] [address] [id number] Mar, [address] [id number] [place] [address] [id number] Feb, Positive occult stool blood test 792.1 [id number] [place] [address] [id number] Feb, Depression 311 ; Other chronic pain 338.29 and Diabetes with renal manifestations, type II or unspecified type, not stated as uncontrolled 250.40 [facility] [id number] [place] [address] Feb, Occult blood in stools 792.1 [id number] [place] [address] [id number] Feb, Anemia 285.9 ; Occult blood positive stool 792.1 ; Unspecified essential hypertension 401.9 and Other chronic pain 338.29 [facility] [id number], [place] [id number] Feb, [facility] [id number] [place] [address] [id number] Feb, Anemia 285.9 [facility] [place] [id number] [place] [address] [id number] Feb, [facility] [id number] [place] [address] [id number] Feb, [facility] [id number] [place] [address] [id number] Feb, Diabetes with renal manifestations, type II or unspecified type, not stated as uncontrolled 250.40 ; Other chronic pain 338.29 ; Unspecified essential hypertension 401.9 ; Anemia 285.9 and Depression 311 [facility] [id number] [place] [address] [id number] Jan, [facility] [id number] [place] [address] [id number] Jan, Anemia 285.9 and Follow up V67.9 [facility] [id number] [place] [address] [id number] Jan, [facility] [id number] [place] [address] [id number] Jan, [facility] [id number] [place] [address] [id number] Jan, [facility] [id number] [place] [address] [id number] Dec, [facility] [id number] [place] [address] Oct, [facility] [id number] [place] [address] Oct, [facility] [id number] [place] [address] Sep, [facility] [address] [id number], [place] [id number] Sep, [facility] [id number] [place] [address] Sep, [facility] [place] [address] [id number] [place] [id number] Aug, [facility] [place] [facility] [address] [facility] [id number], [place] [address] Aug, [facility] [place] [facility] [address] [facility] [id number] [place] [address] Aug, [facility] [place] [address] [id number], [place] [id number] Aug, [facility] [place] [facility] [address] [facility] [id number] [place] [address] Aug, [facility] [place] [facility] [address] [facility] [id number], [place] [address] Aug, [facility] [place] [address] [facility] [id number], [place] [id number] Aug, [facility] [place] [facility] [id number] [address] Aug, [facility] [place] [address] [facility] [id number], [place] [id number] Jul, [facility] [place] [facility] [id number] [address] Jul, [facility] [place] [facility] [address] [facility] [id number], [place] [address] Jul, [facility] [place] [address] [facility] [id number], [place] [id number] Jul, [facility] [place] [facility] [address] [facility] [id number], [place] [address] Jul, [facility] [place] [address] [facility] [id number], [place] [id number] Jul, [facility] [place] [facility] [address] [facility] [id number], [place] [address] Jul, [facility] [place] [address] [id number], [place] [id number] Jun, [facility] [place] [address] [facility] [id number], [place] [id number] Jun, [facility] [place] [facility] [address] [facility] [id number], [place] [address] Jun, [facility] [place] [facility] [address] [facility] [id number], [place] [address] Jun, [facility] [place] [address] [facility] [id number], [place] [id number] Jun, [facility] [place] [facility] [address] [facility] [id number], [place] [address] Jun, [facility] [place] [address] [facility] [id number], [place] [id number] May, [facility] [place] [facility] [address] [facility] [id number][place] [address] May, [facility] [place] [facility] [id number] [address] May, [facility] [place] [address] [facility] [id number], [place] [id number] Apr, [facility] [place] [facility] [address] [facility] [id number], [place] [address] Apr, [facility] [place] [address] [facility] [id number], [place] [id number] Apr, [facility] [place] [address] [facility] [id number], [place] [id number] Apr, [facility] [place] [facility] [address] [facility] [id number], [place] [address] Apr, [facility] [place] [facility] [address] [facility] [id number][place] [address] Apr, [facility] [place] [address] [facility] [id number], [place] [id number] Mar, [facility] [place] [facility] [address] [facility] [id number], [place] [address] Mar, [facility] [place] [address] [facility] [id number], [place] [id number] Mar, [facility] [place] [facility] [address] [id number], [place] [address] Mar, [facility] [place] [address] [id number] [place] [id number] Mar, [facility] [place] [facility] [address] [facility] [id number] [place] [address] Mar, [facility] [place] [address] [id number] [place] [id number] Mar, [facility] [place] [facility] [address] [facility] [id number] [place] [address] Mar, [facility] [place] [address] [id number] [place] [id number] Mar, [facility] [place] [facility] [address] [facility] [id number], [place] [address] Mar, [facility] [place] [address] [facility] [id number], [place] 735262679 Feb, [facility] [place] [facility] [address] [facility] [id number][place] [address] Feb, [facility] [place] [address] [facility] [id number], [place] [id number] Jan, [facility] [place] [facility] [address] [facility] [id number], [place] [address] Jan, [facility] [place] [address] [facility] [id number], [place] [id number] Jan, [facility] [place] [facility] [address] [facility] [id number][place] [address] Jan, [facility] [place] [address] [facility] [id number], [place] [id number] Jan, [facility] [place] [facility] [address] [facility] [id number] [place] [address] Jan, [facility] [place] [facility] [address] [facility] [id number], [place] [address] Dec, [facility] [place] [facility] [address] [facility] [id number], [place] [address] Dec, [facility] [place] [address] [id number] [place] [id number] November, [facility] [place] [facility] [address] [id number] [place] [address] November, [facility] [place] [address] [id number] [place] [id number] November, [facility] [place] [facility] [address] [id number] [place] [address] November, [facility] [place] [address] [id number] [place] [id number] Oct, [facility] [place] [facility] [address] [id number] [place] [address] Oct, [facility] [place] [facility] [address] [facility] [id number] [place] [address] Oct, [facility] [place] [facility] [address] [facility] [id number] [place] [address] Oct, [facility] [place] [facility] [address] [facility] [id number], [place] [address] Oct, [facility] [place] [facility] [address] [facility] [id number] [place] [address] Oct, [facility] [place] [address] [id number], [place] [id number] Sep, [facility] [place] [address] [id number], [place] [id number] Sep, [facility] [place] [facility] [address] [id number], [place] [address] Sep, [facility] [place] [facility] [address] [id number] [place] [address] Sep, [facility] [place] [address] [id number] [place] [id number] Sep, [facility] [place] [facility] [address] [facility] [id number] [place] [address] Sep, [facility] [place] [facility] [address] [id number] [address] Aug, [facility] [place] [facility] [address] [facility] [id number], [place] [address] Aug, [facility] [place] [address] [facility] [id number], [place] 944769394 Aug, [facility] [place] [address] [facility] [id number] [place] [id number] Aug, [facility] [place] [facility] [address] [facility] [id number][place] [address] Aug, [facility] [place] [address] [facility] [id number] [place] [id number] Aug, [facility] [place] [facility] [id number], [place] [address] Aug, [facility] [place] [id number], [place] [id number] Aug, [facility] [place] [facility] [id number], [place] [address] Aug, [facility] [place] [address] [id number], [place] [id number] Aug, [facility] [place] [facility] [id number], [place] [address] Aug, [facility] [place] [address] [id number], [place] [id number] Aug, [facility] [place] [facility] [id number], [place] [address] Aug, [facility] [place] [facility] [address] [id number], [place] [address] Jul, [facility] [place] [address] [facility] [id number], [place] [id number] Jun, [facility] [place] [facility] [address] [id number] [address] Jun, [facility] [place] [facility] [id number], [place] [address] Jun, [facility] [place] [facility] [address] [id number] [place] [address] Jun, [facility] [place] [address] [id number], [place] [id number] Jun, [facility] [place] [facility] [address] [facility] [id number] [place] [address] Jun, [facility] [place] [facility] [address] [id number] [place] [address] Jun, [facility] [place] [address] [facility] [id number] [place] [id number] Jun, [facility] [place] [facility] [address] [id number], [place] [address] Jun, [facility] [place] [facility] [address] [facility] [id number], [place] [address] May, [facility] [place] [address] [id number], [place] [id number] May, [facility] [place] [facility] [address] [facility] [id number], [place] [address] May, [facility] [place] [facility] [address] [facility] [id number], [place] [address] May, [facility] [place] [facility] [address] [facility] [id number], [place] [address] May, [facility] [place] [facility] [address] [facility] [id number][place] [address] May, [facility] [place] [address] [facility] [id number], [place] [id number] May, [facility] [place] [facility] [address] [facility] [id number], [place] [address] May, [facility] [place] [address] [facility] [id number], [place] 979002342 May, [facility] [place] [facility] [address] [facility] [id number], [place] [address] May, [facility] [place] [address] [facility] [id number], [place] 825629105 Apr, [facility] [place] [facility] [address] [facility] [id number], [place] [address] Apr, [facility] [place] [facility] [address] [facility] [id number], [place] [address] Apr, [facility] [address] [facility] [id number], [place] 857289008 Apr, [facility] [place] [facility] [address] [facility] [id number][place] [address] Apr, [facility] [place] [facility] [address] [facility] [id number], [place] [address] Apr, [facility] [place] [id number], [place] 058210145 Apr, [facility] [place] [facility] [address]65100[place], [place] [address] Apr, [facility] [place] [facility] [id number], [place] [address] Apr, [facility] [place] [facility] [id number], [place] [address] Apr, [facility] [place] [address] [id number] Apr, [facility] [place] [facility] [address] [facility] [id number], [place] [address] Apr, [facility] [address] [facility] [id number], [place] [id number] Apr, [facility] [place] [facility] [address] [facility] [id number][place] [address] Apr, [facility] [address] [facility] [id number], [place] [id number] Apr, [facility] [place] [facility] [address] [facility] [id number], [place] [address] Apr, [facility] [place] [facility] [address] [facility] [id number][place] [address] Apr, [facility] [address] [facility] [id number], [place] [address] Apr, [facility] [place] [address] [id number] [place] [id number] Apr, [facility] [address] [facility] [id number], [place] [address] Mar, [facility] [address] [facility] [id number], [place] [address] Mar, [facility] [place] [address] [id number] [place] [id number] Mar, [facility] [place] [address] [id number] [place] [id number] Mar, [facility] [place] [address] [id number] [place] [id number] Mar, [facility] [place] [address] [id number] [place] [id number] Feb, [facility] [place] [address] [id number] [place] [id number] Feb, [facility] [address] [id number] [place] [id number] Feb, [facility] [address] [facility] [id number], [place] [address] Feb, [facility] [place] [address] [id number] [place] [id number] Feb, [facility] [place] [address] [id number] [place] [id number] Feb, [facility] [place] [address] [id number] [place] [id number] Feb, [facility] [place] [address] [id number] [place] [id number] Feb, [facility] [place] [address] [id number] [place] [id number] Feb, [facility] [place] [address] [id number] [place] [id number] Jan, [facility] [place] [address] [id number] [place] [id number] Jan, [facility] [place] [address] [id number] [place] [id number] Jan, [facility] [place] [address] [id number] [place] [id number] Jan, [facility] [place] [address] [id number] [place] [id number] Jan, [facility] [id number] [place] [address] Jan, [facility] [place] [address] [id number] [place] [id number] Jan, [facility] [place] [address] [id number] [place] [id number] Jan, [facility] [place] [address] [id number] [place] [id number] Dec, [facility] [place] [address] [id number] [place] [id number] November, [facility] [place] [address] [id number] [place] 909014510 November, [facility] [place] [address] [id number] [place] [id number] November, [facility] [place] [address] [id number] [place] [id number] November, [facility] [place] [address] [id number] [place] [id number] November, [facility] [place] [address] [id number] [place] [id number] November, [facility] [place] [address] [id number] [place] [id number] Jul, [facility] [place] [address] [id number] [place] [id number] Jul, [facility] [place] [address] [id number] [place] [id number] Jul, [facility] [place] [address] [id number] [place] [id number] Jun, [facility] [id number] [address] Jun, [facility] [place] [address] [id number][place] [id number] May, [facility] [address] [facility] [id number] [address] May, [facility] [place] [address] [id number][place] [id number] May, [facility] [address] [facility] [id number], [place] [address] May, [facility] [place] [address] [id number][place] [id number] May, [facility] [address] [facility] [id number] [address] May, [facility] [place] [address] [id number][place] [id number] Apr, [facility] [id number], [place] [address] Apr, [facility] [address] [facility] [id number][place] [address] Apr, [facility] [place] [address] [id number][place] [id number] Apr, [facility] [place] [address] [id number], [place] [id number] Apr, [facility] [id number], [place] [address] Apr, [facility] [address] [facility] [id number], [place] [address] Apr, [facility] [place] [address] [id number][place] [id number] Apr, [facility] [address] [facility] [id number], [place] [address] Apr, [facility] [place] [address] [id number], [place] [id number] Apr, [facility] [place] [address] [id number] [place] [address] [place] [id number] Apr, [facility] [place] [address] [id number] [place] [id number] Mar, [facility] [place] [address] [id number] [place] [id number] Feb, [facility] [place] [address] [id number] [place] [id number] Jan, [facility] [place] [address] [id number] [place] [id number] Dec, [facility] [place] [address] [id number] [place] [id number] Dec, [facility] [place] [address] [id number] [place] [id number] Dec, [facility] [place] [address] [id number] [place] [id number] Dec, [facility] [place] [address] [id number] [place] [id number] Dec, [facility] [place] [address] [id number] [place] [id number] November, [facility] [place] [address] [id number] [place] [id number] November, [facility] [place] [address] [id number] [place] [id number] November, [facility] [place] [address] [facility] [id number], [place] [address] November, [facility] [place] [address] [id number] [place] [id number] November, [facility] [place] [address] [id number] [place] [id number] November, [facility] [place] [address] [id number] [place] [id number] Oct, [facility] [place] [address] [id number] [place] [id number] Oct, [facility] [place] [address] [id number] [place] [id number] Oct, [facility] [place] [address] [id number] [place] [id number] Oct, [facility] [place] [address] [id number] [place] [id number] Oct, [facility] [place] [address] [id number] [place] [id number] Oct, [facility] [address] [id number] [place] [id number] Sep, [facility] [place] [address] [id number] [place] [id number] Aug, [facility] [place] [address] [id number] [place] [id number] Aug, [facility] [place] [address] [id number] [place] [id number] Jul, [facility] [address] [facility] [id number], [place] [address] Jun, [facility] [address] [id number] [address] Jun, [facility] [id number], [place] [address] Jun, [facility] [id number], [place] [address] Jun, [facility] [id number], [place] [address] May, [facility] [id number], [place] [address] May, [facility] [id number], [place] [address] Apr, [facility] [address] [id number] [address] Apr, [facility] [id number], [place] [address] Apr, [facility] [id number], [place] [address] Feb, [facility] [id number] [facility] [place] [address] 15 Aug, 2010 [facility] [address] [id number] [place] [address] 18 Jul, 2010 [facility] [place] [facility] [address] [id number] [place] [address] 30 Jun, 2010 [facility] [address] [id number] [place] [address] 29 May, 2010 [facility] [place] [facility] [address] [id number] [place] [address] May, [facility] [address] [id number] [place] [address], [place] [address] May, [facility] [address] [facility] [id number] [place] [address] May, [facility] [address] [facility] [id number] [place] [address] May, [facility] [address] [id number] [place] [address] 16 Aug, 2009 [facility] [address] [facility] [id number] [place] [address] Jun, [facility] [address] [facility] [id number] [place] [address] Jun, [facility] [place] [facility] [address] [facility] [id number] [place] [address] Jun, [facility] [address] [id number] [address] 24 May, 2009 [facility] [place] [facility] [address] [id number] [place] [address] 28 Apr, 2009 [facility] [place] [facility] [address] [facility] [id number] [place] [address] Apr, [facility] [address] [facility] [id number], [place] [address] Apr, [facility] [address] [facility] [id number] [place] [address] Jan, [facility] [address] [facility] [id number], [place] [address] Oct, [facility] [address] [facility] [id number], [place] [address] May, [facility] [address] [facility] [id number], [place] [address] May, IMMUNIZATIONS No Known Immunizations SOCIAL HISTORY Never Assessed REASON FOR VISIT alf admit PLAN OF CARE VITAL SIGNS MEDICATIONS Unknown [...] Dialysis [facility] 2012 -Dr. Simon now [facility] Medical History Colonoscopy (polyps 2 ) [...]
--- OUTSIDE RECORDS SUMMARY | 2018-12-28 18:06 | XMS REPORT ---
Author Author ASYA SNOW [facility] Address [address] [place] [address] Care Team Providers Care Systems Requirements Planner Name Role Phone ASYA SNOW Unavailable PROBLEMS Type Condition ICD9-CM Code FRL82-FD Code Onset Dates Condition Status SNOMED Code Problem Chronic kidney disease, stage 4 (severe) N18.4 Active 749245321 Problem Psoriasis of scalp L40.9 Active 774112198 Problem Type 2 diabetes mellitus with hyperglycemia E11.65 Active 988621169947838 Problem Fibromyalgia M79.7 Active 448069559 Problem History of DVT (deep vein thrombosis) Z86.718 Active 588733978 Problem Carpal tunnel syndrome, bilateral G56.03 Active 03700720201218775 Problem Type 2 diabetes mellitus with other diabetic kidney complication E11.29 Active 310034353 Problem Anemia in other chronic diseases classified elsewhere D63.8 Active 197643233 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 Active 858577740 Problem Paresthesia of right upper extremity R20.2 Active 34225820 Problem Bilateral lower extremity edema R60.0 Active 798892878 Problem Supplemental oxygen dependent Z99.81 Active 081261561392 Problem Sleep apnea in adult G47.33 Active 27240566 Problem Chronic pain syndrome G89.4 Active 884027424 Problem longterm current use of anticoagulant Z79.01 Active 950879819 Problem Essential hypertension I10 Active 48715078 Problem Gastroesophageal reflux disease without esophagitis K21.9 Active 468485114 Problem Chronic obstructive pulmonary disease, unspecified COPD type J44.9 Active 42142866 Problem 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 Active 232496572369996 Problem Primary insomnia F51.01 Active 0445320 Problem Oxygen desaturation during sleep G47.34 Active 363813721 Problem Right carpal tunnel syndrome G56.01 Active 292036448713848 Problem Diabetic polyneuropathy associated with type 2 diabetes mellitus E11.42 Active 26161696 Problem Depression, unspecified depression type F32.9 Active 50950183 ALLERGIES No Information ENCOUNTERS Encounter Location Date Diagnosis [facility] [id number] [address] Feb, [facility] [id number] [address] Feb, [facility] [id number] [address] Jan, [facility] [id number] [address] Jan, [facility] [id number] [address] Jan, [address] [id number] Jan, [facility] [address] [address] Jan, [facility] [address] [address] Jan, [facility] [id number] [address] Jan, Essential hypertension I10 [facility] [id number] [address] Jan, Chronic obstructive pulmonary disease, unspecified COPD type J44.9 [facility] [id number] [address] Jan, [facility] [address] [address] Jan, [facility] [address] [address] Jan, Type 2 diabetes mellitus with other diabetic kidney complication E11.29 ; Anemia in other chronic diseases classified elsewhere D63.8 ; Chronic obstructive pulmonary disease, unspecified COPD type J44.9 and BMI 60.0-69.9, adult Z68.44 [facility] [id number] [address] Jan, [facility] [id number] [place] [address] Jan, [facility] [id number] [id number] Jan, [facility] [id number] [place] [id number] Dec, [facility] [id number] [place] [id number] Dec, [facility] [id number] [place] [id number] Dec, Essential hypertension I10 ; Type 2 diabetes mellitus with other diabetic kidney complication E11.29 ; Depression, unspecified depression type F32.9 ; Supplemental oxygen dependent Z99.81 ; Chronic pain syndrome G89.4 ; Fibromyalgia M79.7 ; Carpal tunnel syndrome, bilateral G56.03 and Chronic kidney disease, stage 4 (severe) N18.4 [facility] [address] [place] [address] Dec, Essential hypertension I10 [facility] [id number] [place] [address] November, Type 2 diabetes mellitus with other diabetic kidney complication E11.29 [facility] [id number] [address] November, Chronic pain syndrome G89.4 [facility] [address] [address] November, [facility] [id number] [place] [address] November, [facility] [id number] [place] [address] November, [facility] [id number] [address] Oct, Type 2 diabetes mellitus with other diabetic kidney complication E11.29 [facility] [address] [address] Oct, Primary insomnia F51.01 [address] [id number] [id number] Oct, Bilateral lower extremity edema R60.0 [facility] [address] [place] [address] Oct, [place] [id number] [place] [address] Sep, Type 2 diabetes mellitus with other diabetic kidney complication E11.29 and Chronic obstructive pulmonary disease, unspecified COPD type J44.9 [facility] [facility] [address] [place] [address] 15 Aug, 2017 Type 2 diabetes mellitus with other diabetic kidney complication E11.29 [address] [place] [address] 12 Aug, 2017 Gastroesophageal reflux disease without esophagitis K21.9 ; 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 ; Chronic pain syndrome G89.4 ; Essential hypertension I10 and Type 2 diabetes mellitus with other diabetic kidney complication E11.29 [facility] [facility] [address] [address] 08 Aug, 2017 Chronic pain syndrome G89.4 [facility] [facility] [address] [place] [address] Aug, Type 2 diabetes mellitus with other diabetic kidney complication E11.29 [facility] [address] [address] Jul, Diabetic polyneuropathy associated with type 2 diabetes mellitus E11.42 [facility] [facility] [address] [place] [address] Jul, Primary insomnia F51.01 [facility] [address] [address] Jul, [place] [address] [address] Jul, Type 2 diabetes mellitus with other diabetic kidney complication E11.29 and Chronic obstructive pulmonary disease, unspecified COPD type J44.9 [facility] [facility] [address] [place] [address] Jul, Type 2 diabetes mellitus with other diabetic kidney complication E11.29 [facility] [id number] [place] [address] Jun, Type 2 diabetes mellitus with other diabetic kidney complication E11.29 [facility] [id number] [place] [address] 27 Jun, 2017 [place] [facility] [id number] [place] [address] Jun, Chronic obstructive pulmonary disease, unspecified COPD type J44.9 [facility] [id number] [place] [address] May, Type 2 diabetes mellitus with other diabetic kidney complication E11.29 [facility] [id number] [place] [address] May, 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 and Essential hypertension I10 [address] [place] [address] May, Anemia in other chronic diseases classified elsewhere D63.8 ; Chronic obstructive pulmonary disease, unspecified COPD type J44.9 ; Oxygen desaturation during sleep G47.34 ; Sleep apnea in adult G47.33 and Supplemental oxygen dependent Z99.[address] [place] [address] May, Type 2 diabetes mellitus with other diabetic kidney complication E11.29 ; Essential hypertension I10 ; Chronic pain syndrome G89.4 ; BMI 40.0- 44.9, adult Z68.41 ; Gastroesophageal reflux disease without esophagitis K21.9 ; longterm current use of anticoagulant Z79.01 ; longterm 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 ; Diabetic polyneuropathy associated with type 2 diabetes mellitus E11.42 ; Edema of both legs R60.0 and Supplemental oxygen dependent Z99.81 [place] [facility] [id number] [place] [address] May, [facility] [facility] [id number] [place] [address] May, Essential hypertension I10 and Gastroesophageal reflux disease without esophagitis K21.9 [place] [address] [address] May, [place] [address] [address] May, Type 2 diabetes mellitus with other diabetic kidney complication E11.29 and longterm current use of anticoagulant Z79.01 [facility] [facility] [id number] [place] [address] Apr, Chronic pain syndrome G89.4 and Essential hypertension I10 [facility] [facility] [id number] [place] [address] Apr, Type 2 diabetes mellitus with other diabetic kidney complication E11.29 [facility] [id number] [place] [address] Apr, Type 2 diabetes mellitus with other diabetic kidney complication E11.29 [facility] [id number] [place] [address] Apr, Essential hypertension I10 [facility] [id number] [place] [address] Apr, Gastroesophageal reflux disease without esophagitis K21.9 [facility] [id number] [place] [address] Apr, Type 2 diabetes mellitus with other diabetic kidney complication E11.29 [facility] [id number] [place] [address] Apr, Type 2 diabetes mellitus with other diabetic kidney complication E11.29 and 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 [facility] [address] [address] 27 Mar, 2017 Encounter for immunization Z23 and Preoperative examination Z01.818 [facility] [id number] [place] [address] Mar, [facility] [id number] [place] [address] Mar, Type 2 diabetes mellitus with other diabetic kidney complication E11.29 [facility] [facility] [id number] [place] [address] 08 Mar, 2017 Type 2 diabetes mellitus with other diabetic kidney complication E11.29 [facility] [id number] [place] [address] Mar, Gastroesophageal reflux disease without esophagitis K21.9 [facility] [facility] [id number] [place] [address] Mar, Essential hypertension I10 [facility] [facility] [id number] [place] [address] Feb, 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 [facility] [id number] [place] [address] Feb, Type 2 diabetes mellitus with other diabetic kidney complication E11.29 [facility] [id number] [place] [address] Feb, Type 2 diabetes mellitus with other diabetic kidney complication E11.29 [facility] [id number] [place] [address] Feb, Type 2 diabetes mellitus with other diabetic kidney complication E11.29 [facility] [facility] [id number] [place] [address] Feb, Gastroesophageal reflux disease without esophagitis K21.9 [facility] [id number] [place] [address] 03 Aug, 2017 Type 2 diabetes mellitus with other diabetic kidney complication E11.29 [facility] [address] [address] Feb, longterm current use of anticoagulant Z79.01 [facility] [address] [address] Jan, Type 2 diabetes mellitus with other diabetic kidney complication E11.29 [facility] [id number] [place] [address] Jan, Type 2 diabetes mellitus with other diabetic kidney complication E11.29 [facility] [address] [address] Jan, Chronic pain syndrome G89.4 [facility] [id number] [address] Jan, [facility] [id number] [place] [address] Jan, [facility] [address] [address] Jan, [facility] [id number] [place] [address] Jan, [facility] [address] [address] Jan, Primary insomnia F51.01 ; Type 2 diabetes mellitus with other diabetic kidney complication E11.29 ; Chronic pain syndrome G89.4 and Essential hypertension I10 [facility] [address] [address] Jan, Primary insomnia F51.01 [facility] [id number] [place] [address] Jan, Type 2 diabetes mellitus with other diabetic kidney complication E11.29 [facility] [address] [address] Jan, [facility] [address] [place] [address] Jan, 2017 Chronic obstructive pulmonary disease, unspecified COPD type J44.9 [facility] [id number] [place] [address] Jan, Essential hypertension I10 ; Type 2 diabetes mellitus with other diabetic kidney complication E11.29 ; Chronic obstructive pulmonary disease, unspecified COPD type J44.9 ; Chronic kidney disease, stage 4 (severe) N18.4 ; Right carpal tunnel syndrome G56.01 ; 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 ; 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 (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 and Diabetic polyneuropathy associated with type 2 diabetes mellitus E11.42 [facility] [facility] [id number] [place] [address] Jan, Gastroesophageal reflux disease without esophagitis K21.9 [facility] [id number] [place] [address] Dec, [facility] [id number] [place] [address] Dec, [facility] [id number] [place] [address] Dec, 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 ; Chronic pain syndrome G89.4 and Essential hypertension I10 [facility] [id number] [address] Dec, [facility] [id number] [place] [address] Dec, Type 2 diabetes mellitus with other diabetic kidney complication E11.29 [facility] [id number] [address] Dec, [facility] [id number] [place] [address] Dec, Gastroesophageal reflux disease without esophagitis K21.9 [facility] [id number] [place] [address] 24 May, 2017 Type 2 diabetes mellitus with other diabetic kidney complication E11.29 [facility] [address] [address] November, [facility] [address] [place] [address] November, Type 2 diabetes mellitus with other diabetic kidney complication E11.29 [facility] [address] [place] [address] November, [facility] [address] [place] [address] November, Type 2 diabetes mellitus with other diabetic kidney complication E11.29 [facility] [id number] [place] [address] November, [facility] [id number] [place] [address] Oct, Essential hypertension I10 [facility] [id number] [place] [address] Oct, Psoriasis of scalp L40.9 [facility] [id number] [place] [address] Oct, Essential hypertension I10 and Chronic pain syndrome G89.4 [facility] [address] [place] [address] Oct, [facility] [address] [place] [address] Sep, Type 2 diabetes mellitus with other diabetic kidney complication E11.29 [facility] [address] [address] Sep, [facility] [id number] [place] [address] Sep, Type 2 diabetes mellitus with other diabetic kidney complication E11.29 [facility] [address] [address] Sep, Type 2 diabetes mellitus with other diabetic kidney complication E11.29 [facility] [facility] [id number] [place] [address] 09 Sep, 2017 Type 2 diabetes mellitus with other diabetic kidney complication E11.29 ; Chronic kidney disease, stage 4 (severe) N18.4 ; Chronic obstructive pulmonary disease, unspecified COPD type J44.9 ; Iron deficiency anemia due to chronic blood loss D50.0 ; longterm current use of anticoagulant Z79.01 ; Gastroesophageal reflux disease without esophagitis K21.9 ; Essential hypertension I10 ; Primary insomnia F51.01 ; Depression, unspecified depression type F32.9 ; Chronic pain syndrome G89.4 ; Wrist pain, right M25.531 ; Paresthesia of right upper extremity R20.2 and Psoriasis of scalp L40.9 [facility] [facility] [id number] [place] [address] Sep, [address] [address] Aug, Essential hypertension I10 [place] [facility] [address] [address] Aug, History of DVT (deep vein thrombosis) Z86.718 [facility] [facility] [id number] [place] [address] Aug, [facility] [id number] [place] [address] Jul, [facility] [facility] [id number] [place] [address] Jul, [facility] [facility] [id number] [place] [address] Jul, 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 ; Chronic pain syndrome G89.4 and Chronic kidney disease, stage 4 (severe) N18.4 [place] [facility] [id number] [place] [address] Jul, [place] [address] [address] Jul, [place] [address] [address] Jul, [facility] [facility] [address] [place] [address] Jul, [place] [address] [address] Jul, [facility] [facility] [id number] [place] [address] Jul, Type 2 diabetes mellitus with other diabetic kidney complication E11.29 [facility] [facility] [id number] [place] [address] Jul, History of DVT (deep vein thrombosis) Z86.718 [place] [address] [place] [address] Jun, [place] [id number] [place] [address] Jun, History of DVT (deep vein thrombosis) Z86.718 [id number] [place] [address] 15 Jun, 2016 Post traumatic stress disorder (PTSD) F43.10 [address] [address] 07 Jun, 2016 Type 2 diabetes mellitus with other diabetic kidney complication E11.29 ; Diabetic polyneuropathy associated with type 2 diabetes mellitus E11.42 ; Iron deficiency anemia due to chronic blood loss D50.0 ; Chronic obstructive pulmonary disease, unspecified COPD type J44.9 ; 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 ; [...] pain M79.641 and Right wrist pain M25.531 [facility] [id number] [place] [address] May, [facility] [id number] [place] [address] May, [facility] [address] [address] May, [facility] [id number] [place] [address] May, [facility] [id number] [place] [address] May, Anemia in other chronic diseases classified elsewhere D63.8 [facility] [address] [address] May, [facility] [id number] [place] [address] Apr, [facility] [id number] [place] [address] 27 Mar, 2016 Dermatofibroma D23.9 [facility] [id number] [place] [address] 20 Mar, 2016 [facility] [id number] [place] [address] 14 Mar, 2016 Chronic pain syndrome G89.4 [facility] [id number] [place] [address] 09 Mar, 2016 [facility] [id number] [place] [address] 07 Mar, 2016 [facility] [id number] [place] [address] 06 Mar, 2016 [facility] [address] [place] [address] Feb, [facility] [address] [address] Feb, [facility] [address] [address] Feb, [facility] [address] [place] [address] Feb, [facility] [id number] [place] [address] Feb, [facility] [id number] [place] [address] Feb, [facility] [id number] [place] [address] Feb, Type 2 diabetes mellitus with other [...] Renal failure, chronic, stage 4 (severe) N18.4 [facility] [address] [address] Feb, Skin tags, multiple acquired L91.8 [facility] [id number] [place] [address] Jan, [facility] [address] [place] [id number] Jan, Dental examination Z01.20 [facility] [id number] [place] [address] Jan, [facility] [address] [place] [address] Jan, Type 2 diabetes mellitus with other diabetic kidney complication E11.29 ; Diabetic polyneuropathy associated with type 2 diabetes mellitus E11.42 ; Iron deficiency anemia due to chronic blood loss D50.0 ; Chronic obstructive pulmonary disease, unspecified COPD type J44.9 ; 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 ; [...] Renal failure, chronic, stage 4 (severe) N18.4 [place] [id number] [place] [address] Dec, Diabetes type 2, uncontrolled E11.65 [place] [id number] [place] [address] Dec, [place] [id number] [place] [address] Dec, Type 2 diabetes mellitus with other diabetic kidney complication E11.29 ; Diabetic polyneuropathy associated with type 2 diabetes mellitus E11.42 ; Iron deficiency anemia due to chronic blood loss D50.0 ; Chronic obstructive pulmonary disease, unspecified COPD type J44.9 ; 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 ; History of DVT (deep vein thrombosis) Z86.718 ; Chronic pain syndrome G89.4 ; Oxygen desaturation during sleep G47.34 ; Sleep apnea in adult G47.33 ; Gastroesophageal reflux disease without esophagitis K21.9 ; Essential hypertension I10 ; Primary insomnia F51.01 and Depression, unspecified depression type F32.9 [facility] [address] [id number] [place] [id number] Dec, Dental caries K02.9 [facility] [address] [id number] [place] [address] [id number] Dec, [facility] [address] [id number] [place] [id number] Dec, Dental examination Z01.20 [facility] [address] [id number] [place] [id number] November, Dental examination Z01.20 and Dental caries K02.9 [facility] [address] [id number][place] [id number] Oct, [facility] [address] [id number] [place] [address] [id number] Oct, [facility] [address] [id number] [place] [address] [id number] Sep, [facility] [address] [id number] [place] [address] [id number] Sep, [facility] [address] [id number] [place] [address] [id number] Sep, [facility] [address] [id number] [place] [address] [id number] Sep, Other chronic pain 338.29 [facility] [address] [id number] [place] [address] [id number] Aug, Diabetes type 2, uncontrolled E11.65 and Morbid obesity due to excess calories E66.01 [facility] [address] [id number] [place] [address] [id number] Aug, Hair loss L65.9 [facility] [address] [id number][place] [id number] Aug, [facility] [address] [id number] [place] [address] [id number] Jul, [facility] [address] [id number][place] [id number] Jul, [facility] [address] [id number] [place] [address] [id number] Jun, [facility] [address] [id number] [place] [address] [id number] Jun, Hair loss L65.9 and Disorder of the skin and subcutaneous tissue, unspecified L98.9 [facility] [id number] [place] [address] [phone] May, Type 2 diabetes mellitus with other diabetic kidney complication E11.29 ; Type 2 diabetes mellitus with hyperglycemia E11.65 ; Morbid obesity due to excess calories E66.01 and Essential hypertension I10 [facility] [id number] [place] [address] [id number] May, Diabetes type 2, uncontrolled E11.65 ; Encounter for immunization Z23 and Morbid obesity due to excess calories E66.01 [facility] [id number] [place] [address] [id number] May, [facility] [address] [address] Apr, [address] [id number] Apr, Hyperglycemia R73.[address] [id number] Apr, [address] [id number] Apr, Depression F32.9 ; Encounter for immunization Z23 ; Hyperglycemia R73.9 and Anemia in other chronic diseases classified elsewhere D63.8 [facility] [id number] [place] [address] [id number] Mar, [place] [id number] [place] [address] [phone] Feb, Positive occult stool blood test 792.1 [place] [id number] [place] [address] [phone] Feb, Depression 311 ; Other chronic pain 338.29 and Diabetes with renal manifestations, type II or unspecified type, not stated as uncontrolled 250.40 [facility] [id number] [place] [address] Feb, Occult blood in stools 792.1 [place] [id number] [place] [address] [phone] Feb, Anemia 285.9 ; Occult blood positive stool 792.1 ; Unspecified essential hypertension 401.9 and Other chronic pain 338.29 [facility] [id number] [id number] Feb, [facility] [id number] [place] [address] [id number] Feb, Anemia 285.9 [facility] [place] [id number] [place] [address] [id number] Feb, [facility] [id number] [place] [address] [id number] Feb, [facility] [id number] [place] [address] [id number] Feb, Diabetes with renal manifestations, type II or unspecified type, not stated as uncontrolled 250.40 ; Other chronic pain 338.29 ; Unspecified essential hypertension 401.9 ; Anemia 285.9 and Depression 311 [facility] [id number] [place] [address] [id number] Jan, [facility] [id number] [place] [address] [id number] Jan, Anemia 285.9 and Follow up V67.9 [facility] [id number] [place] [address] [id number] Jan, [facility] [id number] [place] [address] [id number] Jan, [facility] [id number] [place] [address] [id number] Jan, [facility] [id number] [place] [address] [id number] Dec, [facility] [id number] [place] [address] Oct, [facility] [id number] [place] [phone] Oct, [facility] [id number] [place] [address] Sep, [facility] [address] [id number] [id number] Sep, [facility] [id number] [place] [address] Sep, [facility] [place] [address] [id number] [place] [id number] Aug, [facility] [place] [facility] [address] [facility] [id number] [address] Aug, [facility] [place] [facility] [address] [facility] [id number] [place] [address] Aug, [facility] [place] [address] [id number], [place] [id number] Aug, [facility] [place] [facility] [address] [facility] [id number] [place] [address] Aug, [facility] [place] [facility] [address] [facility] [id number] [place] [address] Aug, [facility] [place] [address] [facility] [id number], [place] [id number] Aug, [facility] [place] [facility] [id number] [address] Aug, [facility] [place] [address] [facility] [id number], [place] [id number] Jul, [facility] [place] [facility] [id number] [address] Jul, [facility] [place] [facility] [address] [facility] [id number] [place] [address] Jul, [facility] [place] [address] [facility] [id number], [place] [id number] Jul, [facility] [place] [facility] [address] [facility] [id number] [place] [address] Jul, [facility] [place] [address] [facility] [id number], [place] [id number] Jul, [facility] [place] [facility] [address] [facility] [id number] [place] [address] Jul, [facility] [place] [address] [id number], [place] [id number] Jun, [facility] [place] [address] [facility] [id number], [place] [id number] Jun, [facility] [place] [facility] [address] [facility] [id number] [place] [address] Jun, [facility] [place] [facility] [address] [facility] [id number] [place] [address] Jun, [facility] [place] [address] [facility] [id number], [place] [id number] Jun, [facility] [place] [facility] [address] [facility] [id number] [place] [address] Jun, [facility] [place] [address] [facility] [id number], [place] [id number] May, [facility] [place] [facility] [address] [facility] [id number] [place] [address] May, [facility] [place] [facility] [id number] [address] May, [facility] [place] [address] [facility] [id number], [place] [id number] Apr, [facility] [place] [facility] [address] [facility] [id number] [place] [address] Apr, [facility] [place] [address] [facility] [id number], [place] [id number] Apr, [facility] [place] [address] [facility] [id number], [place] [id number] Apr, [facility] [place] [facility] [address] [facility] [id number] [place] [address] Apr, [facility] [place] [facility] [address] [facility] [id number] [place] [address] Apr, [facility] [place] [address] [facility] [id number], [place] [id number] Mar, [facility] [place] [facility] [address] [facility] [id number] [place] [address] Mar, [facility] [place] [address] [facility] [id number], [place] [id number] Mar, [facility] [place] [facility] [address] [id number] [place] [address] Mar, [facility] [place] [address] [id number] [place] [id number] Mar, [facility] [place] [facility] [address] [facility] [id number] [place] [address] Mar, [facility] [place] [address] [id number] [place] [id number] Mar, [facility] [place] [facility] [address] [facility] [id number] [place] [address] Mar, [facility] [place] [address] [id number] [place] [id number] Mar, [facility] [place] [facility] [address] [facility] [id number] [place] [address] Mar, [facility] [place] [address] [facility] [id number], [place] 848661443 Feb, [facility] [place] [facility] [address] [facility] [id number] [place] [address] Feb, [facility] [place] [address] [facility] [id number], [place] 3933[address]307 Jan, [facility] [place] [facility] [address] [facility] [id number] [place] [address] Jan, [facility] [place] [address] [facility] [id number], [place] [id number] Jan, [facility] [place] [facility] [address] [facility] [id number] [place] [address] Jan, [facility] [place] [address] [facility] [id number], [place] 440235989 Jan, [facility] [place] [facility] [address] [facility] [id number] [place] [address] Jan, [facility] [place] [facility] [address] [facility] [id number] [place] [address] Dec, [facility] [place] [facility] [address] [facility] [id number] [place] [address] Dec, [facility] [address] [id number] [place] [id number] November, [facility] [place] [facility] [address] [id number] [place] [address] November, [facility] [place] [address] [id number] [place] [id number] November, [facility] [place] [facility] [address] [id number] [place] [address] November, [facility] [place] [address] [id number] [place] [id number] Oct, [facility] [place] [facility] [address] [id number] [place] [address] Oct, [facility] [place] [facility] [address] [facility] [id number] [place] [address] Oct, [facility] [place] [facility] [address] [facility] [id number] [place] [address] Oct, [facility] [place] [facility] [address] [facility] [id number] [place] [address] Oct, [facility] [place] [facility] [address] [facility] [id number] [place] [address] Oct, [facility] [place] [address] [id number], [place] 677849027 Sep, [facility] [place] [address] [id number], [place] 584186466 Sep, [facility] [place] [facility] [address] [id number] [place] [address] Sep, [facility] [place] [facility] [address] [id number] [place] [address] Sep, [facility] [place] [address] [id number] [place] [id number] Sep, [facility] [place] [facility] [address] [facility] [id number] [place] [address] Sep, [facility] [place] [facility] [address] [id number] [address] Aug, [facility] [place] [facility] [address] [facility] [id number] [place] [address] Aug, [facility] [place] [address] [facility] [id number], [place] 302976694 Aug, [facility] [place] [address] [facility] [id number] [place] [id number] Aug, [facility] [place] [facility] [address] [facility] [id number] [place] [address] Aug, [facility] [place] [address] [facility] [id number] [place] 714226086 Aug, [facility] [place] [facility] [id number] [address] Aug, [facility] [place] [id number], [place] 020570758 Aug, [facility] [place] [facility] [id number] [address] Aug, [facility] [place] [address] [id number], [place] 529967137 Aug, [facility] [place] [facility] [id number] [address] Aug, [facility] [place] [address] [id number], [place] 064874574 Aug, [facility] [place] [facility] [id number] [address] Aug, [facility] [place] [facility] [address] [id number] [address] Jul, [facility] [place] [address] [facility] [id number], [place] 836959000 Jun, [facility] [place] [facility] [address] [id number] [address] Jun, [facility] [place] [facility] [id number] [address] Jun, [facility] [place] [facility] [address] [id number] [place] [address] Jun, [facility] [place] [address] [id number], [place] 703601396 Jun, [facility] [place] [facility] [address] [facility] [id number] [place] [address] Jun, [facility] [place] [facility] [address] [id number] [place] [address] Jun, [facility] [place] [address] [facility] [id number] [place] 400094642 Jun, [facility] [place] [facility] [address] [id number] [place] [address] Jun, [facility] [place] [facility] [address] [facility] [id number] [place] [address] May, [facility] [place] [address] [id number], [place] 288679162 May, [facility] [place] [facility] [address] [facility] [id number] [place] [address] May, [facility] [place] [facility] [address] [facility] [id number] [place] [address] May, [facility] [place] [facility] [address] [facility] [id number] [place] [address] May, [facility] [place] [facility] [address] [facility] [id number] [place] [address] May, [facility] [place] [address] [facility] [id number], [place] 606626470 May, [facility] [place] [facility] [address] [facility] [id number] [place] [address] May, [facility] [place] [address] [facility] [id number], [place] 308957824 May, [facility] [place] [facility] [address] [facility] [id number] [place] [address] May, [facility] [place] [address] [facility] [id number], [place] 882557259 Apr, [facility] [place] [facility] [address] [facility] [id number] [place] [address] Apr, [facility] [place] [facility] [address] [facility] [id number] [place] [address] Apr, [facility] [address] [facility] [id number], [place] 030602381 Apr, [facility] [place] [facility] [address] [facility] [id number] [place] [address] Apr, [facility] [place] [facility] [address] [facility] [id number] [place] [address] Apr, [facility] [place] [id number], [place] 680005425 Apr, [facility] [place] [facility] [id number] [address] Apr, [facility] [place] [facility] [id number] [address] Apr, [facility] [place] [facility] [id number] [address] Apr, [facility] [place] [address]00565100[place], [place] 669380163 Apr, [facility] [place] [facility] [address] [facility] [id number] [place] [address] Apr, [facility] [address] [facility] [id number], [place] 582523303 Apr, [facility] [place] [facility] [address] [facility] [id number] [place] [address] Apr, [facility] [address] [facility] [id number], [place] 989420092 Apr, [facility] [place] [facility] [address] [facility] [id number] [place] [address] Apr, [facility] [place] [facility] [address] [facility] [id number] [place] [address] Apr, [facility] [place] [facility] [address] [facility] [id number] [place] [address] Apr, [facility] [place] [address] [id number] [place] 710573233 Apr, [facility] [address] [facility] [id number] [place] [address] Mar, [facility] [address] [facility] [id number] [place] [address] Mar, [facility] [place] [address] [id number] [place] [id number] Mar, [facility] [place] [address] [id number] [place] 572202285 Mar, [facility] [place] [address] [id number] [place] [id number] Mar, [facility] [place] [address] [id number] [place] [id number] Feb, [facility] [place] [address] [id number] [place] 035915507 Feb, [facility] [place] [address] [id number] [place] 338648515 Feb, [facility] [address] [facility] [id number] [place] [address] Feb, [facility] [place] [address] [id number] [place] 916294271 Feb, [facility] [place] [address] [id number] [place] 916681293 Feb, [facility] [place] [address] [id number] [place] 632451039 Feb, [facility] [place] [address] [id number] [place] 397437463 Feb, [facility] [place] [address] [id number] [place] [id number] Feb, [facility] [place] [address] [id number] [place] 781147903 Jan, [facility] [place] [address] [id number] [place] 60[place] Jan, [facility] [place] [address] [id number] [place] 0680110[place] Jan, [facility] [place] [address] [id number] [place] 608493337 Jan, [facility] [place] [address] [id number] [place] 037702159 Jan, [facility] [id number] [place] [address] Jan, [facility] [place] [address] [id number] [place] [id number] Jan, [facility] [place] [address] [id number] [place] 962059125 Jan, [facility] [place] [address] [id number] [place] [id number] Dec, [facility] [place] [address] [id number] [place] [id number] November, [facility] [place] [address] [id number] [place] [id number] November, [facility] [place] [address] [id number] [place] [id number] November, [facility] [place] [address] [id number] [place] [id number] November, [facility] [place] [address] [id number] [place] [id number] November, [facility] [place] [address] [id number] [place] [id number] November, [facility] [place] [address] [id number] [place] [id number] Jul, [facility] [place] [address] [id number] [place] [id number] Jul, [facility] [place] [address] [id number] [place] [id number] Jul, [facility] [place] [address] [id number] [place] [id number] Jun, [facility] [id number] [address] Jun, [facility] [place] [address] [id number][place] [id number] May, [facility] [address] [facility] [id number] [address] May, [facility] [place] [address] [id number][place] [id number] May, [facility] [address] [facility] [id number] [address] May, [facility] [place] [address] [id number] [id number] May, [facility] [address] [facility] [id number] [address] May, [facility] [place] [address] [id number][place] [id number] Apr, [facility] [id number] [address] Apr, [facility] [address] [facility] [id number] [address] Apr, [facility] [place] [address] [id number][place] [id number] Apr, [facility] [place] [address] [id number][place] [id number] Apr, [facility] [id number] [address] Apr, [facility] [address] [facility] [id number] [address] Apr, [facility] [place] [address] [id number][place] [id number] Apr, [facility] [address] [facility] [id number] [place] [address] Apr, [facility] [place] [address] [id number][place] [id number] Apr, [facility] [place] [id number] [place] [address] [place] [id number] Apr, [facility] [place] [address] [id number] [place] [id number] Mar, [facility] [place] [address] [id number] [place] [id number] Feb, [facility] [place] [address] [id number] [place] [id number] Jan, [facility] [place] [address] [id number] [place] [id number] Dec, [facility] [place] [address] [id number] [place] [id number] Dec, [facility] [place] [address] [id number] [place] [id number] Dec, [facility] [place] [address] [id number] [place] [id number] Dec, [facility] [place] [address] [id number] [place] [id number] Dec, [facility] [place] [address] [id number] [place] [id number] November, [facility] [place] [address] [id number] [place] [id number] November, [facility] [place] [address] [id number] [place] [id number] November, [facility] [address] [facility] [id number] [address] November, [facility] [place] [address] [id number] [place] [id number] November, [facility] [place] [address] [id number] [place] [id number] November, [facility] [place] [address] [id number] [place] [id number] Oct, [facility] [place] [address] [id number] [place] [id number] Oct, [facility] [place] [address] [id number] [place] [id number] Oct, [facility] [place] [address] [id number] [place] [id number] Oct, [facility] [place] [address] [id number] [place] [id number] Oct, [facility] [place] [address] [id number] [place] [id number] Oct, [facility] [place] [address] [id number] [place] [id number] Sep, [facility] [place] [address] [id number] [place] [id number] Aug, [facility] [place] [address] [id number] [place] [id number] Aug, [facility] [address] [id number] [place] [id number] Jul, [facility] [place] [facility] [address] [facility] [id number] [address] Jun, [facility] [place] [facility] [address] [id number] [address] Jun, [facility] [place] [facility] [id number] [address] Jun, [facility] [place] [facility] [id number] [address] Jun, [facility] [place] [facility] [id number] [address] May, [facility] [place] [facility] [id number] [address] May, [facility] [place] [facility] [id number] [address] Apr, [facility] [place] [facility] [address] [id number] [address] Apr, [facility] [place] [facility] [id number] [address] Apr, [facility] [place] [facility] [id number] [address] Feb, [facility] [place] [facility] [address] [id number] [place] [address] 15 Aug, 2010 [facility] [address] [id number] [place] [address] 18 Jul, 2010 [facility] [place] [facility] [address] [id number] [place] [address] 30 Jun, 2010 [facility] [address] [id number] [place] [address] 29 May, 2010 [facility] [place] [facility] [address] [id number] [place] [address] May, [facility] [id number] [place] [address], [place] [address] May, [facility] [address] [facility] [id number] [place] [address] May, [facility] [address] [facility] [id number] [place] [address] May, [facility] [address] [id number] [place] [address] 16 Aug, 2009 [facility] [address] [facility] [id number] [place] [address] Jun, [facility] [address] [facility] [id number] [place] [address] Jun, [facility] [place] [facility] [address] [facility] [id number] [place] [address] Jun, [facility] [address] [id number] [address] 24 May, 2009 [facility] [place] [facility] [address] [id number] [place] [address] 28 Apr, 2009 [facility] [place] [facility] [address] [facility] [id number] [place] [address] Apr, [facility] [address] [facility] [id number] [place] [address] Apr, [facility] [address] [facility] [id number] [place] [address] Jan, [facility] [address] [facility] [id number] [place] [address] Oct, [facility] [address] [facility] [id number] [place] [address] May, [facility] [address] [facility] [id number] [place] [address] May, IMMUNIZATIONS No Known Immunizations SOCIAL HISTORY Never Assessed REASON FOR VISIT Blood sugar concerns PLAN OF CARE VITAL SIGNS MEDICATIONS Unknown [...] Dialysis Ruthy Reveles 2012 -Dr. Simon now [facility] Medical History Colonoscopy (polyps 2 ) [...]
--- OUTSIDE RECORDS SUMMARY | 2018-12-28 18:07 | XMS REPORT ---
Author Author RIYA PHILLIPS Organization [facility] Address [address] [place] [address] Care Team Providers Care Consultant Electronics Name Role Phone ALAN RIYA Unavailable PROBLEMS Type Condition ICD9-CM Code TSK79-LK Code Onset Dates Condition Status SNOMED Code Problem Chronic kidney disease, stage 4 (severe) N18.4 Active 997574306 Problem Psoriasis of scalp L40.9 Active 941120294 Problem Type 2 diabetes mellitus with hyperglycemia E11.65 Active 758212955465324 Problem Fibromyalgia M79.7 Active 193356972 Problem History of DVT (deep vein thrombosis) Z86.718 Active 631715600 Problem Carpal tunnel syndrome, bilateral G56.03 Active 88930692638115864 Problem Type 2 diabetes mellitus with other diabetic kidney complication E11.29 Active 530887664 Problem Anemia in other chronic diseases classified elsewhere D63.8 Active 095332273 Problem 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 Active 016353886 Problem Paresthesia of right upper extremity R20.2 Active 55975412 Problem Bilateral lower extremity edema R60.0 Active 654504947 Problem Supplemental oxygen dependent Z99.81 Active 468366288558 Problem Sleep apnea in adult G47.33 Active 41422608 Problem Chronic pain syndrome G89.4 Active 684268009 Problem 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 Active 836520613 Problem Essential hypertension I10 Active 67587081 Problem Gastroesophageal reflux disease without esophagitis K21.9 Active 695859226 Problem Chronic obstructive pulmonary disease, unspecified COPD type J44.9 Active 29387193 Problem 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 Active 348665674500623 Problem Primary insomnia F51.01 Active 5408212 Problem Oxygen desaturation during sleep G47.34 Active 833870961 Problem Right carpal tunnel syndrome G56.01 Active 198120282057346 Problem Diabetic polyneuropathy associated with type 2 diabetes mellitus E11.42 Active 93976219 Problem Depression, unspecified depression type F32.9 Active 21257460 ALLERGIES No Information ENCOUNTERS Encounter Location Date Diagnosis [facility] [address], [place] [address] Feb, [facility] [address] [address] Feb, [facility] [address], [place] [address] Jan, [facility] [address], [place] [address] Jan, [facility] [address], [place] [address] Jan, [address] [id number] Jan, [facility] [address], [place] [address] Jan, [facility] [address], [place] [address] Jan, [facility] [address], [place] [address] Jan, Essential hypertension I10 [facility] [address], [place] [address] Jan, Chronic obstructive pulmonary disease, unspecified COPD type J44.9 [facility] [address] [address] Jan, [facility] [address], [place] [address] Jan, [facility] [address], [place] [address] Jan, Type 2 diabetes mellitus with other diabetic kidney complication E11.29 ; Anemia in other chronic diseases classified elsewhere D63.8 ; Chronic obstructive pulmonary disease, unspecified COPD type J44.9 and BMI 60.0-69.9, adult Z68.44 [facility] [id number] [place] [address] Jan, [facility] [id number] [place] [address] Jan, [facility] [id number] [place] [id number] Jan, [facility] [id number] [place] [phone] Dec, [facility] [id number] [place] [phone] Dec, [facility] [id number] [place] [phone] Dec, Essential hypertension I10 ; Type 2 diabetes mellitus with other diabetic kidney complication E11.29 ; Depression, unspecified depression type F32.9 ; Supplemental oxygen dependent Z99.81 ; Chronic pain syndrome G89.4 ; Fibromyalgia M79.7 ; Carpal tunnel syndrome, bilateral G56.03 and Chronic kidney disease, stage 4 (severe) N18.4 [facility] [id number] [place] [address] Dec, Essential hypertension I10 [facility] [id number] [place] [address] November, Type 2 diabetes mellitus with other diabetic kidney complication E11.29 [facility] [id number] [place] [address] November, Chronic pain syndrome G89.4 [facility] [id number] [place] [address] November, [facility] [id number] [place] [address] November, [facility] [id number] [place] [address] November, [facility] [id number] [place] [address] Oct, Type 2 diabetes mellitus with other diabetic kidney complication E11.29 [place] [address], [place] [address] Oct, Primary insomnia F51.01 [facility] [id number] [id number] Oct, Bilateral lower extremity edema R60.0 [place] [id number] [place] [address] Oct, [place] [id number] [place] [address] Sep, Type 2 diabetes mellitus with other diabetic kidney complication E11.29 and Chronic obstructive pulmonary disease, unspecified COPD type J44.9 [place] [address] [place] [address] 15 Aug, 2017 Type 2 diabetes mellitus with other diabetic kidney complication E11.29 [place] [id number] [place] [address] 12 Aug, 2017 Gastroesophageal reflux disease without esophagitis K21.9 ; USP current use of anticoagulant Z79.01 ; Chronic pain syndrome G89.4 ; Essential hypertension I10 and Type 2 diabetes mellitus with other diabetic kidney complication E11.29 [place] [address], [place] [address] 08 Aug, 2017 Chronic pain syndrome G89.4 [place] [address] [place] [address] Aug, Type 2 diabetes mellitus with other diabetic kidney complication E11.29 [place] [address], [place] [address] Jul, Diabetic polyneuropathy associated with type 2 diabetes mellitus E11.42 [place] [address], [place] [address] Jul, Primary insomnia F51.01 [place] [address] [place] [address] Jul, [place] [address], [place] [address] Jul, Type 2 diabetes mellitus with other diabetic kidney complication E11.29 and Chronic obstructive pulmonary disease, unspecified COPD type J44.9 [place] [address], [place] [address] Jul, Type 2 diabetes mellitus with other diabetic kidney complication E11.29 [place] [id number] [place] [address] Jun, Type 2 diabetes mellitus with other diabetic kidney complication E11.29 [place] [id number] [place] [address] Jun, [place] [id number] [place] [address] Jun, Chronic obstructive pulmonary disease, unspecified COPD type J44.9 [place] [id number] [place] [address] May, Type 2 diabetes mellitus with other diabetic kidney complication E11.29 [place] [id number] [place] [address] May, 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 and Essential hypertension I10 [address] [place] [address] May, Anemia in other chronic diseases classified elsewhere D63.8 ; Chronic obstructive pulmonary disease, unspecified COPD type J44.9 ; Oxygen desaturation during sleep G47.34 ; Sleep apnea in adult G47.33 and Supplemental oxygen dependent Z99.81 [address] [id number] [place] [address] May, Type 2 diabetes mellitus with other diabetic kidney complication E11.29 ; Essential hypertension I10 ; Chronic pain syndrome G89.4 ; BMI 40.0- 44.9, adult Z68.41 ; Gastroesophageal reflux disease without esophagitis K21.9 ; USP current use of anticoagulant Z79.01 ; 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 ; Diabetic polyneuropathy associated with type 2 diabetes mellitus E11.42 ; Edema of both legs R60.0 and Supplemental oxygen dependent Z99.81 [facility] [id number] [place] [address] 08 May, 2017 [facility] [id number] [place] [address] May, Essential hypertension I10 and Gastroesophageal reflux disease without esophagitis K21.9 [facility] [id number] [place] [address] May, [place] [id number] [place] [address] May, Type 2 diabetes mellitus with other diabetic kidney complication E11.29 and 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 [place] [id number] [place] [address] Apr, Chronic pain syndrome G89.4 and Essential hypertension I10 [place] [id number] [place] [address] Apr, Type 2 diabetes mellitus with other diabetic kidney complication E11.29 [place] [id number] [place] [address] Apr, Type 2 diabetes mellitus with other diabetic kidney complication E11.29 [place] [address] [place] [address] Apr, Essential hypertension I10 [facility] [id number] [place] [address] Apr, Gastroesophageal reflux disease without esophagitis K21.9 [facility] [id number] [place] [address] Apr, Type 2 diabetes mellitus with other diabetic kidney complication E11.29 [facility] [id number] [place] [address] Apr, Type 2 diabetes mellitus with other diabetic kidney complication E11.29 and USP current use of anticoagulant Z79.01 [facility] [id number] [place] [address] 27 Mar, 2017 Encounter for immunization Z23 and Preoperative examination Z01.818 [facility] [id number] [place] [address] Mar, [place] [id number] [place] [address] Mar, Type 2 diabetes mellitus with other diabetic kidney complication E11.29 [place] [id number] [place] [address] 08 Mar, 2017 Type 2 diabetes mellitus with other diabetic kidney complication E11.29 [place] [id number] [place] [address] Mar, Gastroesophageal reflux disease without esophagitis K21.9 [place] [id number] [place] [address] Mar, Essential hypertension I10 [place] [id number] [place] [address] Feb, USP current use of anticoagulant Z79.01 [place] [id number] [place] [address] Feb, Type 2 diabetes mellitus with other diabetic kidney complication E11.29 [place] [id number] [place] [address] Feb, Type 2 diabetes mellitus with other diabetic kidney complication E11.29 [place] [id number] [place] [address] Feb, Type 2 diabetes mellitus with other diabetic kidney complication E11.29 [place] [id number] [place] [address] Feb, Gastroesophageal reflux disease without esophagitis K21.9 [place] [id number] [place] [address] Feb, Type 2 diabetes mellitus with other diabetic kidney complication E11.29 [facility] [address], [place] [address] Feb, USP current use of anticoagulant Z79.01 [facility] [address], [place] [address] Jan, Type 2 diabetes mellitus with other diabetic kidney complication E11.29 [facility] [address], [place] [address] Jan, Type 2 diabetes mellitus with other diabetic kidney complication E11.29 [facility] [address], [place] [address] Jan, Chronic pain syndrome G89.4 [facility] [address], [place] [address] Jan, [facility] [address] [place] [address] Jan, [facility] [address], [place] [address] Jan, [facility] [address], [place] [address] Jan, [facility] [address], [place] [address] Jan, Primary insomnia F51.01 ; Type 2 diabetes mellitus with other diabetic kidney complication E11.29 ; Chronic pain syndrome G89.4 and Essential hypertension I10 [facility] [address], [place] [address] Jan, Primary insomnia F51.01 [facility] [address], [place] [address] Jan, Type 2 diabetes mellitus with other diabetic kidney complication E11.29 [facility] [address], [place] [address] Jan, [facility] [id number] [place] [address] Jan, Chronic obstructive pulmonary disease, unspecified COPD type J44.9 [facility] [id number] [place] [address] Jan, Essential hypertension I10 ; Type 2 [...] type 2 diabetes mellitus E11.42 [place] [id number] [place] [address] Jan, Gastroesophageal reflux disease without esophagitis K21.9 [facility] [id number] [place] [address] Dec, [facility] [id number] [place] [address] Dec, [facility] [id number] [place] [address] Dec, USP current use of anticoagulant Z79.01 ; Chronic pain syndrome G89.4 and Essential hypertension I10 [facility] [id number] [place] [address] Dec, [facility] [id number] [place] [address] Dec, Type 2 diabetes mellitus with other diabetic kidney complication E11.29 [facility] [id number] [place] [address] Dec, [facility] [id number] [place] [address] Dec, Gastroesophageal reflux disease without esophagitis K21.9 [facility] [id number] [place] [address] November, Type 2 diabetes mellitus with other diabetic kidney complication E11.29 [facility] [address], [place] [address] November, [facility] [address] [place] [address] November, Type 2 diabetes mellitus with other diabetic kidney complication E11.29 [facility] [address], [place] [address] November, [facility] [address], [place] [address] November, Type 2 diabetes mellitus with other diabetic kidney complication E11.29 [facility] [id number] [place] [address] November, [facility] [address] [address] Oct, Essential hypertension I10 [facility] [id number] [place] [address] Oct, Psoriasis of scalp L40.9 [facility] [id number] [place] [address] Oct, Essential hypertension I10 and Chronic pain syndrome G89.4 [facility] [address], [place] [address] Oct, [facility] [address], [place] [address] Sep, Type 2 diabetes mellitus with other diabetic kidney complication E11.29 [facility] [address], [place] [address] Sep, [facility] [id number] [place] [address] Sep, Type 2 diabetes mellitus with other diabetic kidney complication E11.29 [facility] [address], [place] [address] 20 Mar, 2017 Type 2 diabetes mellitus with other diabetic kidney complication E11.29 [place] [id number] [place] [address] 09 Sep, 2016 Type 2 diabetes mellitus with other diabetic kidney complication E11.29 ; Chronic kidney disease, stage 4 (severe) N18.4 ; Chronic obstructive pulmonary disease, unspecified COPD type J44.9 ; Iron deficiency anemia due to chronic blood loss D50.0 ; 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 ; Gastroesophageal reflux disease without esophagitis K21.9 ; Essential hypertension I10 ; Primary insomnia F51.01 ; Depression, unspecified depression type F32.9 ; Chronic pain syndrome G89.4 ; Wrist pain, right M25.531 ; Paresthesia of right upper extremity R20.2 and Psoriasis of scalp L40.9 [place] [id number] [place] [address] Sep, [address] [address] Aug, Essential hypertension I10 [place] [id number] [place] [address] Aug, History of DVT (deep vein thrombosis) Z86.718 [place] [id number] [place] [address] Aug, [place] [id number] [place] [address] Jul, [place] [id number] [place] [address] Jul, [place] [id number] [place] [address] Jul, USP current use of anticoagulant Z79.01 ; Chronic pain syndrome G89.4 and Chronic kidney disease, stage 4 (severe) N18.4 [place] [id number] [place] [address] Jul, [address] [place] [address] Jul, [facility] [address], [place] [address] Jul, [facility] [address], [place] [address] Jul, [place] [address], [place] [address] Jul, [place] [address] [place] [address] Jul, Type 2 diabetes mellitus with other diabetic kidney complication E11.29 [place] [id number] [place] [address] Jul, History of DVT (deep vein thrombosis) Z86.718 [place] [id number] [place] [address] Jun, [place] [id number] [place] [address] Jun, History of DVT (deep vein thrombosis) Z86.718 [place] [id number] [place] [address] 15 Jun, 2016 Post traumatic stress disorder (PTSD) F43.10 [address] [place] [address] 07 Jun, 2016 Type 2 diabetes mellitus [...] pain M79.641 and Right wrist pain M25.531 [facility] [address], [place] [address] May, [facility] [id number] [place] [address] May, [facility] [id number] [place] [address] May, [facility] [id number] [place] [address] May, [facility] [id number] [place] [address] May, Anemia in other chronic diseases classified elsewhere D63.8 [facility] [id number] [place] [address] May, [facility] [id number] [place] [address] Apr, [facility] [id number] [place] [address] 27 Mar, 2016 Dermatofibroma D23.9 [facility] [address] [address] Mar, [facility] [id number] [place] [address] 14 Mar, 2016 Chronic pain syndrome G89.4 [facility] [address], [place] [address] 09 Mar, 2016 [facility] [id number] [place] [address] 07 Mar, 2016 [facility] [address], [place] [address] 06 Mar, 2016 [facility] [address], [place] [address] Feb, [facility] [address] [place] [address] Feb, [facility] [address] [place] [address] Feb, [facility] [id number] [place] [address] Feb, [facility] [id number] [place] [address] Feb, [facility] [id number] [place] [address] Feb, [facility] [id number] [place] [address] Feb, Type 2 diabetes mellitus with other [...] Renal failure, chronic, stage 4 (severe) N18.4 [facility] [address], [place] [address] Feb, Skin tags, multiple acquired L91.8 [facility] [id number] [place] [address] Jan, [facility] [address] [place] [id number] Jan, Dental examination Z01.20 [facility] [id number] [place] [address] Jan, [address] [place] [address] [address] Jan, Type 2 diabetes mellitus with other [...] failure, chronic, stage 4 (severe) N18.[id number] [place] [address] Dec, Diabetes type 2, uncontrolled E11.65 [place] [id number] [place] [address] Dec, [address] [address] Dec, Type 2 diabetes mellitus with other [...] F51.01 and Depression, unspecified depression type F32.9 [facility] [id number] [place] [address] [id number] Dec, Dental caries K02.9 [facility] [address] [id number] [place] [address] [id number] Dec, [facility] [address] [id number] [place] [id number] Dec, Dental examination Z01.20 [facility] [address] [id number] [id number] November, Dental examination Z01.20 and Dental caries K02.9 [facility] [address] [id number], [place] [id number] Oct, [facility] [address] [id number] [place] [address] [id number] Oct, [facility] [address] [id number] [place] [address] [id number] Sep, [facility] [address] [id number] [place] [address] [id number] Sep, [facility] [address] [id number] [place] [address] [id number] Sep, [facility] [address] [id number] [place] [address] [id number] Sep, Other chronic pain 338.29 [facility] [address] [id number] [place] [address] [id number] Aug, Diabetes type 2, uncontrolled E11.65 and Morbid obesity due to excess calories E66.01 [facility] [id number] [place] [address] [id number] Aug, Hair loss L65.9 [facility] [address] [id number][place] [id number] Aug, [facility] [address] [id number] [place] [address] [id number] Jul, [facility] [address] [id number], [place] [id number] Jul, [facility] [address] [id number] [place] [address] [id number] Jun, [facility] [address] [id number] [place] [address] [id number] Jun, Hair loss L65.9 and Disorder of the skin and subcutaneous tissue, unspecified L98.[id number] [place] [address] [id number] May, Type 2 diabetes mellitus with other diabetic kidney complication E11.29 ; Type 2 diabetes mellitus with hyperglycemia E11.65 ; Morbid obesity due to excess calories E66.01 and Essential hypertension I10 [place] [id number] [place] [address] [id number] May, Diabetes type 2, uncontrolled E11.65 ; Encounter for immunization Z23 and Morbid obesity due to excess calories E66.01 [place] [id number] [place] [address] [id number] May, [facility] [address] [address] Apr, [place] [id number] [place] [address] [id number] Apr, Hyperglycemia R73.[address] [id number] Apr, [address] [id number] Apr, Depression F32.9 ; Encounter for immunization Z23 ; Hyperglycemia R73.9 and Anemia in other chronic diseases classified elsewhere D63.8 [facility] [id number] [place] [address] [id number] Mar, [id number] [place] [address] [phone] Feb, Positive occult stool blood test 792.1 [place] [id number] [place] [address] [id number] Feb, Depression 311 ; Other chronic pain 338.29 and Diabetes with renal manifestations, type II or unspecified type, not stated as uncontrolled 250.40 [facility] [id number] [place] [address] Feb, Occult blood in stools 792.1 [id number] [place] [address] [id number] Feb, Anemia 285.9 ; Occult blood positive stool 792.1 ; Unspecified essential hypertension 401.9 and Other chronic pain 338.29 [facility] [id number], [place] [id number] Feb, [facility] [id number] [place] [address] [id number] Feb, Anemia 285.9 [facility] [id number], [place] [id number] Feb, [facility] [id number] [place] [address] [id number] Feb, [facility] [id number] [place] [address] [phone] Feb, Diabetes with renal manifestations, type II or unspecified type, not stated as uncontrolled 250.40 ; Other chronic pain 338.29 ; Unspecified essential hypertension 401.9 ; Anemia 285.9 and Depression 311 [facility] [id number] [place] [address] [id number] Jan, [facility] [id number] [place] [address] [id number] Jan, Anemia 285.9 and Follow up V67.9 [facility] [id number], [place] [id number] Jan, [facility] [id number] [place] [address] [id number] Jan, [facility] [id number] [place] [address] [id number] Jan, [facility] [id number] [place] [address] [id number] Dec, [facility] [id number] [place] [phone] Oct, [facility] [id number] [place] [phone] Oct, [facility] [id number] [place] [address] Sep, [facility] [id number], [place] [id number] Sep, [facility] [id number] [place] [address] Sep, [facility] [address] [facility] [id number], [place] [id number] Aug, [facility] [place] [facility] [address] [facility] [id number], [place] [address] Aug, [facility] [place] [facility] [address] [id number], [place] [address] Aug, [facility] [place] [address] [facility] [id number], [place] [id number] Aug, [facility] [place] [facility] [address]00565100[place], [place] [address] Aug, [facility] [place] [facility] [address]005[address]100[place], [place] [address] Aug, [facility] [place] [id number], [place] [id number] Aug, [facility] [place] [facility] [address]00565100[place], [place] [address] Aug, [facility] [place] [address] [id number], [place] [id number] Jul, [facility] [place] [facility] [address]00565100[place], [place] [address] Jul, [facility] [place] [facility] [address] [id number], [place] [address] Jul, [facility] [place] [address] [facility] [id number], [place] [id number] Jul, [facility] [place] [facility] [address] [id number], [place] [address] Jul, [facility] [place] [address] [facility] [id number], [place] [id number] Jul, [facility] [place] [facility] [address] [id number], [place] [address] Jul, [facility] [place] [address] [id number], [place] [id number] Jun, [facility] [place] [address] [id number], [place] [id number] Jun, [facility] [place] [facility] [address] [facility] [id number], [place] [address] Jun, [facility] [place] [facility] [address] [facility] [id number], [place] [address] Jun, [facility] [place] [address] [facility] [id number], [place] [id number] Jun, [facility] [place] [facility] [address] [facility] [id number], [place] [address] Jun, [facility] [place] [address] [facility] [id number], [place] [id number] May, [facility] [place] [facility] [address] [facility] [id number], [place] [address] May, [facility] [place] [facility] [address] [facility] [id number], [place] [address] May, [facility] [place] [address] [facility] [id number], [place] [id number] Apr, [facility] [place] [facility] [address] [facility] [id number], [place] [address] Apr, [facility] [place] [address] [facility] [id number], [place] [id number] Apr, [facility] [place] [address] [facility] [id number], [place] [id number] Apr, [facility] [place] [facility] [address] [facility] [id number], [place] [address] Apr, [facility] [place] [facility] [address] [facility] [id number], [place] [address] Apr, [facility] [place] [address] [facility] [id number], [place] [id number] Mar, [facility] [place] [facility] [address] [facility] [id number], [place] [address] Mar, [facility] [place] [address] [facility] [id number], [place] [id number] Mar, [facility] [place] [facility] [address] [id number] [place] [address] Mar, [facility] [place] [address] [id number] [place] [id number] Mar, [facility] [place] [facility] [address] [facility] [id number] [place] [address] Mar, [facility] [place] [address] [id number] [place] [id number] Mar, [facility] [place] [facility] [address] [id number] [place] [address] Mar, [facility] [place] [address] [id number] [place] [id number] Mar, [facility] [place] [facility] [address] [facility] [id number] [place] [address] Mar, [facility] [place] [address] [facility] [id number] [place] [id number] Feb, [facility] [place] [facility] [address] [facility] [id number], [place] [address] Feb, [facility] [place] [address] [facility] [id number] [place] [id number] Jan, [facility] [place] [facility] [address] [facility] [id number], [place] [address] Jan, [facility] [place] [address] [facility] [id number] [place] [id number] Jan, [facility] [place] [facility] [address] [facility] [id number], [place] [address] Jan, [facility] [place] [address] [id number] [place] [id number] Jan, [facility] [place] [facility] [address] [facility] [id number], [place] [address] Jan, [facility] [place] [facility] [address] [facility] [id number], [place] [address] Dec, [facility] [place] [facility] [address] [facility] [id number], [place] [address] Dec, [facility] [place] [address] [id number] [place] [id number] November, [facility] [place] [facility] [address] [id number] [place] [address] November, [facility] [place] [address] [id number] [place] [id number] November, [facility] [place] [facility] [address] [id number] [place] [address] November, [facility] [place] [address] [id number] [place] [id number] Oct, [facility] [place] [facility] [address] [id number] [place] [address] Oct, [facility] [place] [facility] [address] [facility] [id number] [place] [address] Oct, [facility] [place] [facility] [address] [facility] [id number] [place] [address] Oct, [facility] [place] [facility] [address] [facility] [id number] [place] [address] Oct, [facility] [place] [facility] [address] [facility] [id number] [place] [address] Oct, [facility] [place] [address] [id number] [place] [id number] Sep, [facility] [place] [address] [id number] [place] [id number] Sep, [facility] [place] [facility] [address] [id number] [place] [address] Sep, [facility] [place] [facility] [address] [id number] [place] [address] Sep, [facility] [place] [address] [id number] [place] [id number] Sep, [facility] [place] [facility] [address] [id number] [place] [address] Sep, [facility] [place] [facility] [address] [facility] [id number], [place] [address] Aug, [facility] [place] [facility] [address] [facility] [id number], [place] [address] Aug, [facility] [place] [address] [id number], [place] [id number] Aug, [facility] [address] [facility] [id number] [place] [id number] Aug, [facility] [place] [facility] [address] [facility] [id number], [place] [address] Aug, [facility] [place] [address] [facility] [id number], [place] [id number] Aug, [facility] [place] [facility] [address] [id number], [place] [address] Aug, [facility] [place] [address] [id number], [place] 584111902 Aug, [facility] [place] [facility] [address]00565100[place], [place] [address] Aug, [facility] [place] [address] [facility] [id number], [place] [id number] Aug, [facility] [place] [facility] [address]005[address], [place] [address] Aug, [facility] [place] [address] [id number], [place] 744492549 Aug, [facility] [place] [facility] [address]00565100[place], [place] [address] Aug, [facility] [place] [facility] [address] [facility] [id number], [place] [address] Jul, [facility] [place] [address] [facility] [id number], [place] [id number] Jun, [facility] [place] [facility] [address] [id number], [place] [address] Jun, [facility] [place] [facility] [address]00565100[place], [place] [address] Jun, [facility] [place] [facility] [address] [id number], [place] [address] Jun, [facility] [place] [address] [facility] [id number], [place] [id number] Jun, [facility] [place] [facility] [address] [facility] [id number], [place] [address] Jun, [facility] [place] [facility] [address] [facility] [id number], [place] [address] Jun, [facility] [place] [address] [facility] [id number], [place] 908901807 Jun, [facility] [place] [facility] [address] [id number], [place] [address] Jun, [facility] [place] [facility] [address] [id number], [place] [address] May, [facility] [place] [address] [id number], [place] [id number] May, [facility] [place] [facility] [address] [id number], [place] [address] May, [facility] [place] [facility] [address] [id number], [place] [address] May, [facility] [place] [facility] [address]00565100[place], [place] [address] May, [facility] [place] [facility] [address] [facility] [id number], [place] [address] May, [facility] [place] [address] [facility] [id number], [place] [id number] May, [facility] [place] [facility] [address] [facility] [id number], [place] [address] May, [facility] [place] [address] [facility] [id number], [place] 089805274 May, [facility] [place] [facility] [address] [id number], [place] [address] May, [facility] [place] [address] [facility] [id number], [place] [id number] Apr, [facility] [place] [facility] [address] [facility] [id number], [place] [address] Apr, [facility] [place] [facility] [address] [facility] [id number], [place] [address] Apr, [facility] [place] [address] [facility] [id number], [place] [id number] Apr, [facility] [place] [facility] [address] [facility] [id number], [place] [address] Apr, [facility] [place] [facility] [address] [facility] [id number], [place] [address] Apr, [facility] [place] [address] [id number], [place] 910094810 Apr, [facility] [place] [facility] [address]100[place], [place] [address] Apr, [facility] [place] [facility] [address] [facility] [id number], [place] [address] Apr, [facility] [place] [facility] [address] [facility] [id number], [place] [address] Apr, [facility] [place] [id number], [place] [id number] Apr, [facility] [place] [facility] [address] [facility] [id number], [place] [address] Apr, [facility] [place] [address] [facility] [id number], [place] 468468986 Apr, [facility] [place] [facility] [address] [facility] [id number], [place] [address] Apr, [facility] [place] [address] [facility] [id number], [place] 687102947 Apr, [facility] [place] [facility] [address]005[address]100[place], [place] [address] Apr, [facility] [place] [facility] [address] [facility] [id number], [place] [address] Apr, [facility] [address] [facility] [id number], [place] [address] Apr, [facility] [address] [id number], [place] 525018626 Apr, [facility] [address] [facility] [id number], [place] [address] Mar, [facility] [address] [facility] [id number], [place] [address] Mar, [facility] [place] [address] [id number] [place] 085113085 Mar, [facility] [place] [address] [id number] [place] 937016232 Mar, [facility] [place] [address] [id number] [place] 305932595 Mar, [facility] [place] [address] [id number] [place] [id number] Feb, [facility] [place] [address] [id number] [place] 520394054 Feb, [facility] [place] [address] [id number] [place] 789351992 Feb, [facility] [address] [facility] [id number], [place] [address] Feb, [facility] [place] [address] [id number] [place] [id number] Feb, [facility] [place] [address] [id number] [place] 479118477 Feb, [facility] [place] [address] [id number] [place] 351368339 Feb, [facility] [place] [address] [id number] [place] 701476765 Feb, [facility] [place] [address] [id number] [place] 397041230 Feb, [facility] [place] [address] [id number] [place] 404779973 Jan, [facility] [place] [address] [id number] [place] 682256877 Jan, [facility] [place] [address] [id number] [place] 338642561 Jan, [facility] [place] [address] [id number] [place] [id number] Jan, [facility] [place] [address] [id number] [place] 582190471 Jan, [facility] [address]005[address]100[place], [place] [address] Jan, [facility] [place] [address] [id number] [place] [id number] Jan, [facility] [place] [address] [id number] [place] 173384972 Jan, [facility] [place] [address] [id number] [place] 214093596 Dec, [facility] [place] [address] [id number] [place] [id number] November, [facility] [place] [address] [id number] [place] [id number] November, [facility] [place] [address] [id number] [place] [id number] November, [facility] [place] [address] [id number] [place] 588549499 November, [facility] [place] [address] [id number] [place] [id number] November, [facility] [place] [address] [id number] [place] 590685034 November, [facility] [place] [address] [id number] [place] 815378056 Jul, [facility] [place] [address] [id number] [place] [id number] Jul, [facility] [place] [address] [id number] [place] 784769042 Jul, [facility] [place] [address] [id number] [place] [id number] Jun, [facility] [address] [address] Jun, [facility] [place] [address] [id number][place] [id number] May, [facility] [place] [facility] [address] [facility] [id number], [place] [address] May, [facility] [place] [address] [id number][place] [id number] May, [facility] [place] [facility] [address] [facility] [id number], [place] [address] May, [facility] [place] [address] [id number] [place] [id number] May, [facility] [place] [facility] [address] [facility] [id number], [place] [address] May, [facility] [place] [address] [facility] [id number][place] [id number] Apr, [facility] [place] [facility] [address] [facility] [id number], [place] [address] Apr, [facility] [place] [facility] [address] [facility] [id number], [place] [address] Apr, [facility] [place] [address] [id number][place] [id number] Apr, [facility] [place] [address] [id number][place] [id number] Apr, [facility] [place] [facility] [address] [facility] [id number], [place] [address] Apr, [facility] [place] [facility] [address] [facility] [id number], [place] [address] Apr, [facility] [place] [address] [id number][place] [id number] Apr, [facility] [place] [facility] [address] [facility] [id number], [place] [address] Apr, [facility] [place] [address] [id number][place] [id number] Apr, [facility] [place] [address] [id number] [place] [id number] Apr, [facility] [place] [address] [id number] [place] [id number] Mar, [facility] [place] [address] [id number] [place] [id number] Feb, [facility] [place] [address] [id number] [place] [id number] Jan, [facility] [place] [address] [id number] [place] [id number] Dec, [facility] [place] [address] [id number] [place] [id number] Dec, [facility] [place] [address] [id number] [place] [id number] Dec, [facility] [place] [address] [id number] [place] [id number] Dec, [facility] [place] [address] [id number] [place] [id number] Dec, [facility] [place] [address] [id number] [place] [id number] November, [facility] [place] [address] [id number] [place] [id number] November, [facility] [place] [address] [id number] [place] [id number] November, [facility] [address] [facility] [id number], [place] [address] November, [facility] [place] [address] [id number] [place] [id number] November, [facility] [place] [address] [id number] [place] [id number] November, [facility] [place] [address] [id number] [place] [id number] Oct, [facility] [place] [address] [id number] [place] [id number] Oct, [facility] [place] [address] [id number] [place] [id number] Oct, [facility] [place] [address] [id number] [place] [id number] Oct, [facility] [place] [address] [id number] [place] [id number] Oct, [facility] [place] [address] [id number] [place] [id number] Oct, [facility] [place] [address] [id number] [place] [id number] Sep, [facility] [place] [address] [id number] [place] [id number] Aug, [facility] [place] [address] [id number] [place] [id number] Aug, [facility] [place] [address] [id number] [place] [id number] Jul, [facility] [place] [facility] [address] [id number], [place] [address] Jun, [facility] [place] [facility] [id number] [place] [address] Jun, [facility] [place] [facility] [address] [id number], [place] [address] Jun, [facility] [place] [facility] [id number] [place] [address] Jun, [facility] [place] [facility] [address] [id number], [place] [address] May, [facility] [place] [facility] [address] [id number] [address] May, [facility] [place] [facility] [id number], [place] [address] Apr, [facility] [place] [facility] [id number] [place] [address] Apr, [facility] [place] [facility] [address] [id number], [place] [address] Apr, [facility] [place] [facility] [id number], [place] [address] Feb, [facility] [place] [facility] [address] [id number] [place] [address] 15 Aug, 2010 [facility] [place] [facility] [address] [id number] [place] [address] 18 Jul, 2010 [facility] [place] [facility] [address] [id number] [place] [address] 30 Jun, 2010 [facility] [place] [facility] [address] [id number] [place] [address] 29 May, 2010 [facility] [place] [facility] [address] [id number] [place] [address] May, [facility] [place] [facility] [address] [id number] [place] [address] May, [facility] [place] [facility] [address] [id number] [place] [address] May, [facility] [place] [facility] [address] [id number] [place] [address] May, [facility] [place] [facility] [address] [id number] [place] [address] 16 Aug, 2009 [facility] [place] [facility] [address] [id number] [place] [address] Jun, [facility] [place] [facility] [address] [id number] [place] [address] Jun, [facility] [place] [facility] [address] [id number] [place] [address] Jun, [facility] [place] [facility] [address] [id number] [place] [address] 24 May, 2009 [facility] [place] [facility] [address] [id number] [place] [address] 28 Apr, 2009 [facility] [place] [facility] [address] [id number] [place] [address] Apr, [facility] [place] [facility] [address] [id number] [place] [address] Apr, [facility] [address] [facility] [id number] [place] [address] Jan, [facility] [address] [facility] [id number], [place] [address] Oct, [facility] [address] [facility] [id number], [place] [address] May, [facility] [address] [facility] [id number], [place] [address] May, IMMUNIZATIONS No Known Immunizations SOCIAL HISTORY Never Assessed REASON FOR VISIT eliquis refill PLAN OF CARE VITAL SIGNS MEDICATIONS Medication Instructions Dosage Frequency Start Date End Date Duration Status Eliquis 5 MG TAKE DIRECTED TWO (2) TIMES DAILY. Active RESULTS No Results PROCEDURES [...] Dialysis Rut[facility] Reveles 2012 -Dr. Simon now [facility] Medical History Colonoscopy (polyps 2 ) [...]
--- OUTSIDE RECORDS SUMMARY | 2018-12-28 18:08 | XMS REPORT ---
Author Author RIYA PHILLIPS Organization [facility] Address [address] [place] [address] Care Team Providers Care Ediphone Operator Name Role Phone ALAN RIYA Unavailable PROBLEMS Type Condition ICD9-CM Code FFG84-UO Code Onset Dates Condition Status SNOMED Code Problem Chronic kidney disease, stage 4 (severe) N18.4 Active 517173082 Problem Psoriasis of scalp L40.9 Active 131829923 Problem Type 2 diabetes mellitus with hyperglycemia E11.65 Active 037634059472937 Problem Fibromyalgia M79.7 Active 485487870 Problem History of DVT (deep vein thrombosis) Z86.718 Active 934354174 Problem Carpal tunnel syndrome, bilateral G56.03 Active 02317487742480794 Problem Type 2 diabetes mellitus with other diabetic kidney complication E11.29 Active 575837049 Problem Anemia in other chronic diseases classified elsewhere D63.8 Active 723295028 Problem 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 Active 563641721 Problem Paresthesia of right upper extremity R20.2 Active 72925876 Problem Bilateral lower extremity edema R60.0 Active 978860433 Problem Supplemental oxygen dependent Z99.81 Active 119988539613 Problem Sleep apnea in adult G47.33 Active 66825224 Problem Chronic pain syndrome G89.4 Active 989724934 Problem 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 Active 517173596 Problem Essential hypertension I10 Active 93782558 Problem Gastroesophageal reflux disease without esophagitis K21.9 Active 701746906 Problem Chronic obstructive pulmonary disease, unspecified COPD type J44.9 Active 12215124 Problem 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 Active 341016330570351 Problem Primary insomnia F51.01 Active 3096458 Problem Oxygen desaturation during sleep G47.34 Active 507480815 Problem Right carpal tunnel syndrome G56.01 Active 319965641286702 Problem Diabetic polyneuropathy associated with type 2 diabetes mellitus E11.42 Active 06131641 Problem Depression, unspecified depression type F32.9 Active 24712684 ALLERGIES Substance Reaction Event Type Date Status Sulfamethoxazole-Trimethoprim hives Drug Allergy Dec, Active Penicillin V Potassium anaphylaxis Drug Allergy Dec, Active plastic tape rash Non Drug Allergy Dec, Active ENCOUNTERS Encounter Location Date Diagnosis [facility] [address] [address] Feb, [facility] [id number] [place] [address] Feb, [facility] [id number] [place] [address] Jan, [facility] [id number] [place] [address] Jan, [facility] [id number] [place] [address] Jan, [facility] [id number] [id number] Jan, [facility] [address] [place] [address] Jan, [facility] [id number] [place] [address] Jan, [facility] [address] [place] [address] Jan, Essential hypertension I10 [facility] [address] [place] [address] Jan, Chronic obstructive pulmonary disease, unspecified COPD type J44.9 [facility] [address] [place] [address] Jan, [facility] [id number] [place] [address] Jan, [facility] [address], [place] [address] Jan, Type 2 diabetes mellitus with other diabetic kidney complication E11.29 ; Anemia in other chronic diseases classified elsewhere D63.8 ; Chronic obstructive pulmonary disease, unspecified COPD type J44.9 and BMI 60.0-69.9, adult Z68.44 [facility] [id number] [place] [address] Jan, [facility] [address] [address] Jan, [facility] [id number] [place] [id number] Jan, [facility] [address] [phone] Dec, [facility] [id number] [id number] Dec, [facility] [id number] [place] [id number] Dec, Essential hypertension I10 ; Type 2 diabetes mellitus with other diabetic kidney complication E11.29 ; Depression, unspecified depression type F32.9 ; Supplemental oxygen dependent Z99.81 ; Chronic pain syndrome G89.4 ; Fibromyalgia M79.7 ; Carpal tunnel syndrome, bilateral G56.03 and Chronic kidney disease, stage 4 (severe) N18.4 [facility] [id number] [place] [address] Dec, Essential hypertension I10 [facility] [id number] [place] [address] November, Type 2 diabetes mellitus with other diabetic kidney complication E11.29 [facility] [id number] [place] [address] November, Chronic pain syndrome G89.4 [facility] [address] [address] November, [facility] [id number] [place] [address] November, [facility] [address] [address] November, [facility] [id number] [address] Oct, Type 2 diabetes mellitus with other diabetic kidney complication E11.29 [facility] [address], [place] [address] Oct, Primary insomnia F51.01 [facility] [address] [id number] [phone] Oct, Bilateral lower extremity edema R60.0 [facility] [address] [place] [address] Oct, [facility] [id number] [place] [address] Sep, Type 2 diabetes mellitus with other diabetic kidney complication E11.29 and Chronic obstructive pulmonary disease, unspecified COPD type J44.9 [facility] [address] [place] [address] 15 Aug, 2017 Type 2 diabetes mellitus with other diabetic kidney complication E11.29 [facility] [address] [place] [address] 12 Aug, 2017 Gastroesophageal reflux disease without esophagitis K21.9 ; detention current use of anticoagulant Z79.01 ; Chronic pain syndrome G89.4 ; Essential hypertension I10 and Type 2 diabetes mellitus with other diabetic kidney complication E11.29 [facility] [address], [place] [address] Aug, Chronic pain syndrome G89.4 [facility] [address], [place] [address] Aug, Type 2 diabetes mellitus with other diabetic kidney complication E11.29 [facility] [address] [place] [address] Jul, Diabetic polyneuropathy associated with type 2 diabetes mellitus E11.42 [facility] [address], [place] [address] Jul, Primary insomnia F51.01 [facility] [id number] [place] [address] Jul, [facility] [id number] [place] [address] Jul, Type 2 diabetes mellitus with other diabetic kidney complication E11.29 and Chronic obstructive pulmonary disease, unspecified COPD type J44.9 [facility] [address] [place] [address] Jul, Type 2 diabetes mellitus with other diabetic kidney complication E11.29 [facility] [address] [place] [address] Jun, Type 2 diabetes mellitus with other diabetic kidney complication E11.29 [facility] [address] [place] [address] Jun, [facility] [address] [place] [address] Jun, Chronic obstructive pulmonary disease, unspecified COPD type J44.9 [facility] [address] [place] [address] May, Type 2 diabetes mellitus with other diabetic kidney complication E11.29 [facility] [address] [place] [address] May, 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 and Essential hypertension I10 [facility] [address] [place] [address] May, Anemia in other chronic diseases classified elsewhere D63.8 ; Chronic obstructive pulmonary disease, unspecified COPD type J44.9 ; Oxygen desaturation during sleep G47.34 ; Sleep apnea in adult G47.33 and Supplemental oxygen dependent Z99.81 [facility] [address] [place] [address] May, Type 2 diabetes mellitus with other diabetic kidney complication E11.29 ; Essential hypertension I10 ; Chronic pain syndrome G89.4 ; BMI 40.0- 44.9, adult Z68.41 ; Gastroesophageal reflux disease without esophagitis K21.9 ; detention current use of anticoagulant Z79.01 ; detention 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 ; Diabetic polyneuropathy associated with type 2 diabetes mellitus E11.42 ; Edema of both legs R60.0 and Supplemental oxygen dependent Z99.81 [place] [address] [place] [address] May, [facility] [address] [address] May, Essential hypertension I10 and Gastroesophageal reflux disease without esophagitis K21.9 [facility] [address] [address] May, [facility] [id number] [place] [address] May, Type 2 diabetes mellitus with other diabetic kidney complication E11.29 and 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 [facility] [address] [place] [address] Apr, Chronic pain syndrome G89.4 and Essential hypertension I10 [facility] [address] [address] Apr, Type 2 diabetes mellitus with other diabetic kidney complication E11.29 [facility] [address] [place] [address] Apr, Type 2 diabetes mellitus with other diabetic kidney complication E11.29 [facility] [address] [place] [address] Apr, Essential hypertension I10 [facility] [address] [address] Apr, Gastroesophageal reflux disease without esophagitis K21.9 [facility] [address] [place] [address] Apr, Type 2 diabetes mellitus with other diabetic kidney complication E11.29 [facility] [address] [place] [address] Apr, Type 2 diabetes mellitus with other diabetic kidney complication E11.29 and detention current use of anticoagulant Z79.01 [facility] [address] [place] [address] 27 Mar, 2017 Encounter for immunization Z23 and Preoperative examination Z01.818 [facility] [facility] [address] [address] Mar, [facility] [address] [address] Mar, Type 2 diabetes mellitus with other diabetic kidney complication E11.29 [facility] [address] [place] [address] 08 Mar, 2017 Type 2 diabetes mellitus with other diabetic kidney complication E11.29 [facility] [address] [address] Mar, Gastroesophageal reflux disease without esophagitis K21.9 [facility] [address] [place] [address] Mar, Essential hypertension I10 [facility] [address] [address] Feb, 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 [facility] [address] [place] [address] Feb, Type 2 diabetes mellitus with other diabetic kidney complication E11.29 [facility] [address] [place] [address] Feb, Type 2 diabetes mellitus with other diabetic kidney complication E11.29 [facility] [address] [place] [address] Feb, Type 2 diabetes mellitus with other diabetic kidney complication E11.29 [facility] [id number] [place] [address] Feb, Gastroesophageal reflux disease without esophagitis K21.9 [facility] [address], [place] [address] Feb, Type 2 diabetes mellitus with other diabetic kidney complication E11.29 [facility] [address], [place] [address] Feb, detention current use of anticoagulant Z79.01 [facility] [id number] [place] [address] Jan, Type 2 diabetes mellitus with other diabetic kidney complication E11.29 [facility] [id number] [place] [address] Jan, Type 2 diabetes mellitus with other diabetic kidney complication E11.29 [facility] [id number] [place] [address] Jan, Chronic pain syndrome G89.4 [facility] [id number] [place] [address] Jan, [facility] [id number] [place] [address] Jan, [facility] [id number] [place] [address] Jan, [facility] [address] [place] [address] Jan, [facility] [address] [place] [address] Jan, Primary insomnia F51.01 ; Type 2 diabetes mellitus with other diabetic kidney complication E11.29 ; Chronic pain syndrome G89.4 and Essential hypertension I10 [facility] [address], [place] [address] Jan, Primary insomnia F51.01 [facility] [address], [place] [address] Jan, Type 2 diabetes mellitus with other diabetic kidney complication E11.29 [facility] [address], [place] [address] Jan, [facility] [id number] [place] [address] Jan, Chronic obstructive pulmonary disease, unspecified COPD type J44.9 [facility] [address], [place] [address] Jan, Essential hypertension I10 ; Type 2 [...] type 2 diabetes mellitus E11.42 [place] [address], [place] [address] Jan, Gastroesophageal reflux disease without esophagitis K21.9 [facility] [address], [place] [address] Dec, [facility] [id number] [place] [address] Dec, [facility] [address], [place] [address] Dec, 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 ; Chronic pain syndrome G89.4 and Essential hypertension I10 [facility] [address], [place] [address] Dec, [facility] [address], [place] [address] Dec, Type 2 diabetes mellitus with other diabetic kidney complication E11.29 [facility] [address], [place] [address] Dec, [facility] [address] [place] [address] Dec, Gastroesophageal reflux disease without esophagitis K21.9 [facility] [address], [place] [address] November, Type 2 diabetes mellitus with other diabetic kidney complication E11.29 [facility] [id number] [place] [address] November, [facility] [id number] [place] [address] November, Type 2 diabetes mellitus with other diabetic kidney complication E11.29 [facility] [address] [place] [address] November, [facility] [id number] [place] [address] November, Type 2 diabetes mellitus with other diabetic kidney complication E11.29 [facility] [id number] [place] [address] November, [facility] [id number] [place] [address] Oct, Essential hypertension I10 [facility] [id number] [place] [address] Oct, Psoriasis of scalp L40.9 [facility] [id number] [place] [address] Oct, Essential hypertension I10 and Chronic pain syndrome G89.4 [facility] [address] [place] [address] Oct, [facility] [id number] [place] [address] Sep, Type 2 diabetes mellitus with other diabetic kidney complication E11.29 [facility] [id number] [place] [address] Sep, [facility] [address] [place] [address] 29 Mar, 2017 Type 2 diabetes mellitus with other diabetic kidney complication E11.29 [facility] [address] [place] [address] 20 Sep, 2016 Type 2 diabetes mellitus with other diabetic kidney complication E11.29 [place] [address] [place] [address] 09 Sep, 2016 Type 2 diabetes mellitus with other diabetic kidney complication E11.29 ; Chronic kidney disease, stage 4 (severe) N18.4 ; Chronic obstructive pulmonary disease, unspecified COPD type J44.9 ; Iron deficiency anemia due to chronic blood loss D50.0 ; 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 ; Gastroesophageal reflux disease without esophagitis K21.9 ; Essential hypertension I10 ; Primary insomnia F51.01 ; Depression, unspecified depression type F32.9 ; Chronic pain syndrome G89.4 ; Wrist pain, right M25.531 ; Paresthesia of right upper extremity R20.2 and Psoriasis of scalp L40.9 [place] [id number] [place] [address] Sep, [place] [address] [place] [address] Aug, Essential hypertension I10 [place] [address] [place] [address] 22 Aug, 2016 History of DVT (deep vein thrombosis) Z86.718 [place] [address] [place] [address] Aug, [facility] [id number] [place] [address] Jul, [place] [facility] [address] [place] [address] Jul, [place] [address] [place] [address] Jul, 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 ; Chronic pain syndrome G89.4 and Chronic kidney disease, stage 4 (severe) N18.[address], [place] [address] Jul, [facility] [address], [place] [address] Jul, [facility] [address], [place] [address] Jul, [place] [address], [place] [address] Jul, [facility] [address], [place] [address] Jul, [place] [address], [place] [address] Jul, Type 2 diabetes mellitus with other diabetic kidney complication E11.29 [facility] [address], [place] [address] Jul, History of DVT (deep vein thrombosis) Z86.718 [place] [address], [place] [address] 23 Jun, 2016 [place] [address], [place] [address] 19 Jun, 2016 History of DVT (deep vein thrombosis) Z86.718 [place] [address], [place] [address] 15 Jun, 2016 Post traumatic stress disorder (PTSD) F43.10 [place] [address], [place] [address] 07 Jun, 2016 Type 2 diabetes mellitus [...] pain M79.641 and Right wrist pain M25.531 [facility] [id number] [place] [address] 28 May, 2016 [facility] [id number] [place] [address] May, [facility] [address] [address] May, [facility] [id number] [place] [address] May, [facility] [address] [address] May, Anemia in other chronic diseases classified elsewhere D63.8 [facility] [id number] [place] [address] May, [facility] [id number] [place] [address] Apr, [facility] [id number] [place] [address] 27 Mar, 2016 Dermatofibroma D23.9 [facility] [address] [place] [address] 20 Mar, 2016 [facility] [id number] [place] [address] 14 Mar, 2016 Chronic pain syndrome G89.4 [facility] [id number] [place] [address] 09 Mar, 2016 [facility] [id number] [place] [address] Mar, [facility] [address], [place] [address] Mar, [facility] [address] [place] [address] Feb, [facility] [address], [place] [address] Feb, [facility] [id number] [place] [address] Feb, [facility] [id number] [place] [address] Feb, [facility] [id number] [place] [address] Feb, [facility] [id number] [place] [address] Feb, [facility] [address] [place] [address] Feb, Type 2 diabetes mellitus with other [...] (severe) N18.4 [facility] [address] [place] [address] Feb, Skin tags, multiple acquired L91.8 [facility] [address], [place] [address] Jan, [facility] [address] [place] [id number] Jan, Dental examination Z01.20 [address] [place] [address] Jan, [place] [id number] [place] [address] Jan, Type 2 diabetes mellitus with other [...] Renal failure, chronic, stage 4 (severe) N18.4 [address] [place] [address] Dec, Diabetes type 2, uncontrolled E11.65 [place] [address] [place] [address] Dec, [place] [address] [place] [address] Dec, Type 2 diabetes mellitus with other [...] type F32.9 [facility] [address]005[address] [id number] Dec, Dental caries K02.9 [facility] [address] [id number], [place] [id number] Dec, [facility] [address] [id number], [place] [id number] Dec, Dental examination Z01.20 [facility] [address] [id number], [place] [id number] November, Dental examination Z01.20 and Dental caries K02.9 [facility] [address] [id number], [place] [id number] Oct, [facility] [address] [id number] [place] [address] [id number] Oct, [facility] [address] [id number] [address] [address] [id number] Sep, [facility] [address] [id number] [place] [address] [id number] Sep, [facility] [address] [id number] [address] [address] [id number] Sep, [facility] [address] [id number] [address] [place] [address] [id number] Sep, Other chronic pain 338.29 [facility] [address] [id number] [address] [place] [address] [id number] Aug, Diabetes type 2, uncontrolled E11.65 and Morbid obesity due to excess calories E66.01 [facility] [address] [id number] [address] [address] [id number] Aug, Hair loss L65.9 [facility] [address] [id number], [place] [id number] Aug, [facility] [address] [id number] [address] [place] [address] [id number] Jul, [facility] [address] [id number] [address] [place] [address] [id number] Jul, [facility] [address] [id number] [address] [place] [address] [id number] Jun, [facility] [address] [id number] [address] [place] [address] [id number] Jun, Hair loss L65.9 and Disorder of the skin and subcutaneous tissue, unspecified L98.9 [place] [id number] [address] [id number] May, Type 2 diabetes mellitus with other diabetic kidney complication E11.29 ; Type 2 diabetes mellitus with hyperglycemia E11.65 ; Morbid obesity due to excess calories E66.01 and Essential hypertension I10 [address] [id number] May, Diabetes type 2, uncontrolled E11.65 ; Encounter for immunization Z23 and Morbid obesity due to excess calories E66.01 [place] [id number] [place] [address] [id number] May, [facility] [address] [address] Apr, [place] [id number] [place] [address] [id number] Apr, Hyperglycemia R73.9 [place] [id number] [place] [address] [id number] Apr, [place] [id number] [place] [address] [id number] Apr, Depression F32.9 ; Encounter for immunization Z23 ; Hyperglycemia R73.9 and Anemia in other chronic diseases classified elsewhere D63.8 [facility] [address] [id number] [id number] Mar, [place] [id number] [address] [id number] Feb, Positive occult stool blood test 792.1 [id number] [address] [id number] Feb, Depression 311 ; Other chronic pain 338.29 and Diabetes with renal manifestations, type II or unspecified type, not stated as uncontrolled 250.40 [facility] [id number] [place] [address] Feb, Occult blood in stools 792.1 [place] [address] [place] [id number] Feb, Anemia 285.9 ; Occult blood positive stool 792.1 ; Unspecified essential hypertension 401.9 and Other chronic pain 338.29 [facility] [id number] [place] [address] [id number] Feb, [facility] [id number] [place] [place] [address] [id number] Feb, Anemia 285.9 [facility] [id number] [place] [place] [address] [id number] Feb, [facility] [id number] [place] [address] [id number] Feb, [facility] [id number] [place] [address] [id number] Feb, Diabetes with renal manifestations, type II or unspecified type, not stated as uncontrolled 250.40 ; Other chronic pain 338.29 ; Unspecified essential hypertension 401.9 ; Anemia 285.9 and Depression 311 [facility] [id number] [place] [address] [id number] Jan, [facility] [id number] [place] [address] [id number] Jan, Anemia 285.9 and Follow up V67.9 [facility] [id number] [place] [address] [id number] Jan, [id number] [place] [address] [id number] Jan, [id number] [place] [address] [id number] Jan, [facility] [id number] [place] [address] [id number] Dec, [facility] [id number] [place] [address] Oct, [facility] [id number] [place] [address] Oct, [facility] [id number] [place] [address] Sep, [facility] [place] [address] [facility] [id number], [place] [id number] Sep, [facility] [place] [facility] [address] [facility] [id number], [place] [address] Sep, [facility] [place] [address] [facility] [id number], [place] [id number] Aug, [facility] [place] [facility] [address] [facility] [id number], [place] [address] Aug, [facility] [place] [facility] [address] [facility] [id number], [place] [address] Aug, [facility] [place] [address] [facility] [id number], [place] [id number] Aug, [facility] [place] [facility] [address] [facility] [id number], [place] [address] Aug, [facility] [place] [facility] [address]00565100[place], [place] [address] Aug, [facility] [place] [address] [facility] [id number], [place] [id number] Aug, [facility] [place] [facility] [address]005[address], [place] [address] Aug, [facility] [place] [address] [facility] [id number], [place] [id number] Jul, [facility] [place] [facility] [address]005[address], [place] [address] Jul, [facility] [place] [facility] [address] [facility] [id number], [place] [address] Jul, [facility] [place] [address] [facility] [id number], [place] [id number] Jul, [facility] [place] [facility] [address] [facility] [id number], [place] [address] Jul, [facility] [place] [address] [facility] [id number], [place] [id number] Jul, [facility] [place] [facility] [address] [id number], [place] [address] Jul, [facility] [place] [address] [id number] [place] [id number] Jun, [facility] [place] [address] [id number] [place] [id number] Jun, [facility] [place] [facility] [address] [id number] [place] [address] Jun, [facility] [place] [facility] [address] [facility] [id number], [place] [address] Jun, [facility] [place] [address] [id number] [place] [id number] Jun, [facility] [place] [facility] [address] [facility] [id number] [place] [address] Jun, [facility] [place] [address] [facility] [id number], [place] [id number] May, [facility] [place] [facility] [address] [facility] [id number], [place] [address] May, [facility] [place] [facility] [address] [facility] [id number], [place] [address] May, [facility] [place] [address] [facility] [id number], [place] [id number] Apr, [facility] [place] [facility] [address] [facility] [id number], [place] [address] Apr, [facility] [place] [address] [id number], [place] [id number] Apr, [facility] [place] [address] [facility] [id number], [place] [id number] Apr, [facility] [place] [facility] [address] [facility] [id number], [place] [address] Apr, [facility] [place] [facility] [address] [facility] [id number], [place] [address] Apr, [facility] [place] [address] [id number], [place] [id number] Mar, [facility] [place] [facility] [address] [facility] [id number] [address] 18 Mar, 2014 [facility] [place] [address] [id number] [place] [id number] Mar, [facility] [place] [facility] [address] [facility] [id number] [place] [address] Mar, [facility] [place] [address] [facility] [id number] [place] [id number] Mar, [facility] [place] [facility] [address] [facility] [id number][place] [address] Mar, [facility] [place] [address] [id number] [place] [id number] Mar, [facility] [place] [facility] [address] [facility] [id number] [place] [address] Mar, [facility] [place] [address] [facility] [id number] [place] [id number] Mar, [facility] [place] [facility] [address]005[address], [place] [address] Mar, [facility] [place] [address] [facility] [id number] [place] [id number] Feb, [facility] [place] [facility] [address] [facility] [id number],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
--- OUTSIDE RECORDS SUMMARY | 2018-12-28 18:09 | XMS REPORT ---
Author Author RIYA PHILLIPS Organization [facility] Address [address] [place] [address] Care Team Providers Care Motor Brakeman Name Role Phone ALAN RIYA Unavailable PROBLEMS Type Condition ICD9-CM Code OIN21-TL Code Onset Dates Condition Status SNOMED Code Problem Chronic kidney disease, stage 4 (severe) N18.4 Active 639900292 Problem Psoriasis of scalp L40.9 Active 662319696 Problem Type 2 diabetes mellitus with hyperglycemia E11.65 Active 579274605709703 Problem Fibromyalgia M79.7 Active 640475172 Problem History of DVT (deep vein thrombosis) Z86.718 Active 875437810 Problem Carpal tunnel syndrome, bilateral G56.03 Active 46053617902288704 Problem Type 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 Active 049386436 Problem Anemia in other chronic diseases classified elsewhere D63.8 Active 895769837 Problem long term 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 Active 503618084 Problem Paresthesia of right upper extremity R20.2 Active 90304073 Problem Bilateral lower extremity edema R60.0 Active 944355517 Problem Supplemental oxygen dependent Z99.81 Active 390188470258 Problem Sleep apnea in adult G47.33 Active 62627583 Problem Chronic pain syndrome G89.4 Active 012483965 Problem long term current use of anticoagulant Z79.01 Active 374001270 Problem Essential hypertension I10 Active 14595143 Problem Gastroesophageal reflux disease without esophagitis K21.9 Active 841473179 Problem Chronic obstructive pulmonary disease, unspecified COPD type J44.9 Active 74052131 Problem 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 Active 579125240668341 Problem Primary insomnia F51.01 Active 3822557 Problem Oxygen desaturation during sleep G47.34 Active 161802337 Problem Right carpal tunnel syndrome G56.01 Active 376745855143781 Problem Diabetic polyneuropathy associated with type 2 diabetes mellitus E11.42 Active 26103928 Problem Depression, unspecified depression type F32.9 Active 39807201 ALLERGIES No Information ENCOUNTERS Encounter Location Date Diagnosis [facility] [address] [address] Feb, [facility] [address] [address] Feb, [facility] [address] [address] Jan, [facility] [address] [address] Jan, [facility] [address], [place] [address] Jan, [address] [id number] Jan, [facility] [address] [address] Jan, [facility] [address] [address] Jan, [facility] [address], [place] [address] Jan, Essential hypertension I10 [facility] [address], [place] [address] Jan, Chronic obstructive pulmonary disease, unspecified COPD type J44.9 [facility] [address] [address] Jan, [facility] [address] [address] Jan, [facility] [address], [place] [address] Jan, Type 2 diabetes mellitus with other diabetic kidney complication E11.29 ; Anemia in other chronic diseases classified elsewhere D63.8 ; Chronic obstructive pulmonary disease, unspecified COPD type J44.9 and BMI 60.0-69.9, adult Z68.44 [facility] [id number] [place] [address] Jan, [facility] [id number] [place] [address] Jan, [facility] [id number] [place] [id number] Jan, [facility] [id number] [place] [id number] Dec, [facility] [id number] [place] [id number] Dec, [facility] [id number] [place] [phone] Dec, Essential hypertension I10 ; Type 2 diabetes mellitus with other diabetic kidney complication E11.29 ; Depression, unspecified depression type F32.9 ; Supplemental oxygen dependent Z99.81 ; Chronic pain syndrome G89.4 ; Fibromyalgia M79.7 ; Carpal tunnel syndrome, bilateral G56.03 and Chronic kidney disease, stage 4 (severe) N18.4 [facility] [id number] [place] [address] Dec, Essential hypertension I10 [facility] [id number] [place] [address] November, Type 2 diabetes mellitus with other diabetic kidney complication E11.29 [facility] [id number] [place] [address] November, Chronic pain syndrome G89.4 [facility] [id number] [place] [address] November, [facility] [id number] [place] [address] November, [facility] [id number] [place] [address] November, [facility] [id number] [place] [address] Oct, Type 2 diabetes mellitus with other diabetic kidney complication E11.29 [place] [address], [place] [address] Oct, Primary insomnia F51.01 [facility] [id number] [id number] Oct, Bilateral lower extremity edema R60.0 [place] [id number] [place] [address] Oct, [place] [id number] [place] [address] Sep, Type 2 diabetes mellitus with other diabetic kidney complication E11.29 and Chronic obstructive pulmonary disease, unspecified COPD type J44.9 [place] [address] [place] [address] 15 Aug, 2017 Type 2 diabetes mellitus with other diabetic kidney complication E11.29 [place] [facility] [id number] [place] [address] 12 Aug, 2017 Gastroesophageal reflux disease without esophagitis K21.9 ; long-term current use of anticoagulant Z79.01 ; Chronic pain syndrome G89.4 ; Essential hypertension I10 and Type 2 diabetes mellitus with other diabetic kidney complication E11.29 [place] [address] [address] 08 Aug, 2017 Chronic pain syndrome G89.4 [place] [address] [place] [address] Aug, Type 2 diabetes mellitus with other diabetic kidney complication E11.29 [place] [address], [place] [address] Jul, Diabetic polyneuropathy associated with type 2 diabetes mellitus E11.42 [place] [address], [place] [address] Jul, Primary insomnia F51.01 [place] [address] [place] [address] Jul, [place] [address], [place] [address] Jul, Type 2 diabetes mellitus with other diabetic kidney complication E11.29 and Chronic obstructive pulmonary disease, unspecified COPD type J44.9 [place] [address], [place] [address] Jul, Type 2 diabetes mellitus with other diabetic kidney complication E11.29 [place] [id number] [place] [address] Jun, Type 2 diabetes mellitus with other diabetic kidney complication E11.29 [place] [id number] [place] [address] Jun, [place] [id number] [place] [address] Jun, Chronic obstructive pulmonary disease, unspecified COPD type J44.9 [place] [id number] [place] [address] May, Type 2 diabetes mellitus with other diabetic kidney complication E11.29 [place] [id number] [place] [address] May, long term current use of anticoagulant Z79.01 and Essential hypertension I10 [address] [place] [address] May, Anemia in other chronic diseases classified elsewhere D63.8 ; Chronic obstructive pulmonary disease, unspecified COPD type J44.9 ; Oxygen desaturation during sleep G47.34 ; Sleep apnea in adult G47.33 and Supplemental oxygen dependent Z99.81 [address] [id number] [place] [address] May, Type 2 diabetes mellitus with other diabetic kidney complication E11.29 ; Essential hypertension I10 ; Chronic pain syndrome G89.4 ; BMI 40.0- 44.9, adult Z68.41 ; Gastroesophageal reflux disease without esophagitis K21.9 ; long-term current use of anticoagulant Z79.01 ; long term 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 ; Diabetic polyneuropathy associated with type 2 diabetes mellitus E11.42 ; Edema of both legs R60.0 and Supplemental oxygen dependent Z99.81 [facility] [id number] [place] [address] 08 May, 2017 [facility] [id number] [place] [address] May, Essential hypertension I10 and Gastroesophageal reflux disease without esophagitis K21.9 [facility] [id number] [place] [address] May, [place] [id number] [place] [address] May, Type 2 diabetes mellitus with other diabetic kidney complication E11.29 and long term current use of anticoagulant Z79.01 [place] [id number] [place] [address] Apr, Chronic pain syndrome G89.4 and Essential hypertension I10 [place] [id number] [place] [address] Apr, Type 2 diabetes mellitus with other diabetic kidney complication E11.29 [place] [id number] [place] [address] Apr, Type 2 diabetes mellitus with other diabetic kidney complication E11.29 [place] [address] [place] [address] Apr, Essential hypertension I10 [facility] [id number] [place] [address] Apr, Gastroesophageal reflux disease without esophagitis K21.9 [facility] [id number] [place] [address] Apr, Type 2 diabetes mellitus with other diabetic kidney complication E11.29 [facility] [id number] [place] [address] Apr, Type 2 diabetes mellitus with other diabetic kidney complication E11.29 and long-term current use of anticoagulant Z79.01 [facility] [id number] [place] [address] 27 Mar, 2017 Encounter for immunization Z23 and Preoperative examination Z01.818 [facility] [id number] [place] [address] Mar, [place] [id number] [place] [address] Mar, Type 2 diabetes mellitus with other diabetic kidney complication E11.29 [place] [id number] [place] [address] 08 Mar, 2017 Type 2 diabetes mellitus with other diabetic kidney complication E11.29 [place] [id number] [place] [address] Mar, Gastroesophageal reflux disease without esophagitis K21.9 [place] [id number] [place] [address] Mar, Essential hypertension I10 [place] [id number] [place] [address] Feb, long-term current use of anticoagulant Z79.01 [place] [id number] [place] [address] Feb, Type 2 diabetes mellitus with other diabetic kidney complication E11.29 [place] [id number] [place] [address] Feb, Type 2 diabetes mellitus with other diabetic kidney complication E11.29 [place] [id number] [place] [address] Feb, Type 2 diabetes mellitus with other diabetic kidney complication E11.29 [place] [id number] [place] [address] Feb, Gastroesophageal reflux disease without esophagitis K21.9 [place] [id number] [place] [address] Feb, Type 2 diabetes mellitus with other diabetic kidney complication E11.29 [facility] [address], [place] [address] Feb, long-term current use of anticoagulant Z79.01 [facility] [address], [place] [address] Jan, Type 2 diabetes mellitus with other diabetic kidney complication E11.29 [facility] [address], [place] [address] Jan, Type 2 diabetes mellitus with other diabetic kidney complication E11.29 [facility] [address], [place] [address] Jan, Chronic pain syndrome G89.4 [facility] [address], [place] [address] Jan, [facility] [id number], [place] [address] Jan, [facility] [address], [place] [address] Jan, [facility] [address], [place] [address] Jan, [facility] [address], [place] [address] Jan, Primary insomnia F51.01 ; Type 2 diabetes mellitus with other diabetic kidney complication E11.29 ; Chronic pain syndrome G89.4 and Essential hypertension I10 [facility] [address], [place] [address] Jan, Primary insomnia F51.01 [facility] [address], [place] [address] Jan, Type 2 diabetes mellitus with other diabetic kidney complication E11.29 [facility] [address], [place] [address] Jan, [facility] [id number] [place] [address] Jan, Chronic obstructive pulmonary disease, unspecified COPD type J44.9 [facility] [id number] [place] [address] Jan, Essential hypertension I10 ; Type 2 diabetes mellitus with other diabetic kidney complication E11.29 ; Chronic obstructive pulmonary disease, unspecified COPD type J44.9 ; Chronic kidney disease, stage 4 (severe) N18.4 ; Right carpal tunnel syndrome G56.01 ; 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 ; long-term (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 and Diabetic polyneuropathy associated with type 2 diabetes mellitus E11.42 [place] [id number] [place] [address] Jan, Gastroesophageal reflux disease without esophagitis K21.9 [facility] [id number] [place] [address] Dec, [facility] [id number] [place] [address] Dec, [facility] [id number] [place] [address] Dec, long-term current use of anticoagulant Z79.01 ; Chronic pain syndrome G89.4 and Essential hypertension I10 [facility] [id number] [place] [address] Dec, [facility] [id number] [place] [address] Dec, Type 2 diabetes mellitus with other diabetic kidney complication E11.29 [facility] [id number] [place] [address] Dec, [facility] [id number] [place] [address] Dec, Gastroesophageal reflux disease without esophagitis K21.9 [facility] [id number] [place] [address] November, Type 2 diabetes mellitus with other diabetic kidney complication E11.29 [facility] [address], [place] [address] November, [facility] [address] [place] [address] November, Type 2 diabetes mellitus with other diabetic kidney complication E11.29 [facility] [address], [place] [address] November, [facility] [address], [place] [address] November, Type 2 diabetes mellitus with other diabetic kidney complication E11.29 [facility] [id number] [place] [address] November, [facility] [id number], [place] [address] Oct, Essential hypertension I10 [facility] [id number] [place] [address] Oct, Psoriasis of scalp L40.9 [facility] [id number] [place] [address] Oct, Essential hypertension I10 and Chronic pain syndrome G89.4 [facility] [address], [place] [address] Oct, [facility] [address], [place] [address] Sep, Type 2 diabetes mellitus with other diabetic kidney complication E11.29 [facility] [address], [place] [address] Sep, [facility] [id number] [place] [address] Sep, Type 2 diabetes mellitus with other diabetic kidney complication E11.29 [facility] [address], [place] [address] 20 Mar, 2017 Type 2 diabetes mellitus with other diabetic kidney complication E11.29 [place] [id number] [place] [address] 09 Sep, 2016 Type 2 diabetes mellitus with other diabetic kidney complication E11.29 ; Chronic kidney disease, stage 4 (severe) N18.4 ; Chronic obstructive pulmonary disease, unspecified COPD type J44.9 ; Iron deficiency anemia due to chronic blood loss D50.0 ; long term current use of anticoagulant Z79.01 ; Gastroesophageal reflux disease without esophagitis K21.9 ; Essential hypertension I10 ; Primary insomnia F51.01 ; Depression, unspecified depression type F32.9 ; Chronic pain syndrome G89.4 ; Wrist pain, right M25.531 ; Paresthesia of right upper extremity R20.2 and Psoriasis of scalp L40.9 [place] [id number] [place] [address] Sep, [address] [address] Aug, Essential hypertension I10 [place] [id number] [place] [address] Aug, History of DVT (deep vein thrombosis) Z86.718 [place] [id number] [place] [address] Aug, [place] [id number] [place] [address] Jul, [place] [id number] [place] [address] Jul, [place] [id number] [place] [address] Jul, long-term current use of anticoagulant Z79.01 ; Chronic pain syndrome G89.4 and Chronic kidney disease, stage 4 (severe) N18.4 [place] [id number] [place] [address] Jul, [address] [place] [address] Jul, [facility] [address] [address] Jul, [facility] [address], [place] [address] Jul, [place] [address], [place] [address] Jul, [place] [address] [place] [address] Jul, Type 2 diabetes mellitus with other diabetic kidney complication E11.29 [place] [id number] [place] [address] Jul, History of DVT (deep vein thrombosis) Z86.718 [place] [id number] [place] [address] Jun, [place] [id number] [place] [address] Jun, History of DVT (deep vein thrombosis) Z86.718 [place] [id number] [place] [address] 15 Jun, 2016 Post traumatic stress disorder (PTSD) F43.10 [address] [address] 07 Jun, 2016 Type 2 diabetes mellitus with other diabetic kidney complication E11.29 ; Diabetic polyneuropathy associated with type 2 diabetes mellitus E11.42 ; Iron deficiency anemia due to chronic blood loss D50.0 ; Chronic obstructive pulmonary disease, unspecified COPD type J44.9 ; long term current use of anticoagulant Z79.01 ; History [...] pain M79.641 and Right wrist pain M25.531 [facility] [address] [address] May, [facility] [id number] [place] [address] May, [facility] [id number] [place] [address] May, [facility] [id number] [place] [address] May, [facility] [id number] [place] [address] May, Anemia in other chronic diseases classified elsewhere D63.8 [facility] [id number] [place] [address] May, [facility] [id number] [place] [address] Apr, [facility] [id number] [place] [address] 27 Mar, 2016 Dermatofibroma D23.9 [facility] [address] [address] Mar, [facility] [id number] [place] [address] 14 Mar, 2016 Chronic pain syndrome G89.4 [facility] [address] [address] 09 Mar, 2016 [facility] [id number] [place] [address] 07 Mar, 2016 [facility] [address] [address] 06 Mar, 2016 [facility] [address], [place] [address] Feb, [facility] [address] [place] [address] Feb, [facility] [address] [place] [address] Feb, [facility] [id number] [place] [address] Feb, [facility] [id number] [place] [address] Feb, [facility] [id number] [place] [address] Feb, [facility] [id number] [place] [address] Feb, Type 2 diabetes mellitus with other diabetic kidney complication E11.29 ; Diabetic polyneuropathy associated with type 2 diabetes mellitus E11.42 ; Iron deficiency anemia due to chronic blood loss D50.0 ; Chronic obstructive pulmonary disease, unspecified COPD type J44.9 ; long term current use of anticoagulant Z79.01 ; History [...] N18.4 [facility] [address] [address] Feb, Skin tags, multiple acquired L91.8 [facility] [id number] [place] [address] Jan, [facility] [address] [id number] Jan, Dental examination Z01.20 [facility] [id number] [place] [address] Jan, [address] [place] [address] Jan, Type 2 diabetes mellitus with other diabetic kidney complication E11.29 ; Diabetic polyneuropathy associated with type 2 diabetes mellitus E11.42 ; Iron deficiency anemia due to chronic blood loss D50.0 ; Chronic obstructive pulmonary disease, unspecified COPD type J44.9 ; long term current use of anticoagulant Z79.01 ; History of DVT (deep vein thrombosis) Z86.718 ; Chronic pain syndrome G89.4 ; Oxygen desaturation during sleep G47.34 ; Sleep apnea in adult G47.33 ; Gastroesophageal reflux disease without esophagitis K21.9 ; Essential hypertension I10 ; Primary insomnia F51.01 ; Depression, unspecified depression type F32.9 ; Skin lesion L98.9 and Renal failure, chronic, stage 4 (severe) N18.[id number] [place] [address] Dec, Diabetes type 2, uncontrolled E11.65 [address] [place] [id number] [place] [address] Dec, [address] [address] Dec, Type 2 diabetes mellitus with other [...] F51.01 and Depression, unspecified depression type F32.9 [facility] [address] [id number] [place] [address] [id number] Dec, Dental caries K02.9 [facility] [id number] [place] [address] [id number] Dec, [facility] [address] [id number] [place] [id number] Dec, Dental examination Z01.20 [facility] [address] [id number], [place] [id number] November, Dental examination Z01.20 and Dental caries K02.9 [facility] [address] [id number], [place] [id number] Oct, [facility] [id number] [place] [address] [id number] Oct, [facility] [address] [id number] [place] [address] [id number] Sep, [facility] [address] [id number] [place] [address] [id number] Sep, [facility] [address] [id number] [place] [address] [id number] Sep, [facility] [address] [id number] [place] [address] [id number] Sep, Other chronic pain 338.29 [facility] [address] [id number] [place] [address] [id number] Aug, Diabetes type 2, uncontrolled E11.65 and Morbid obesity due to excess calories E66.01 [facility] [address] [id number] [place] [address] [id number] Aug, Hair loss L65.9 [facility] [address] [id number], [place] [id number] Aug, [facility] [address] [id number] [place] [address] [id number] Jul, [facility] [address] [id number], [place] [id number] Jul, [facility] [address] [id number] [place] [address] [id number] Jun, [facility] [address] [id number] [place] [address] [id number] Jun, Hair loss L65.9 and Disorder of the skin and subcutaneous tissue, unspecified L98.9 [facility] [place] [address] [id number] May, Type 2 diabetes mellitus with other diabetic kidney complication E11.29 ; Type 2 diabetes mellitus with hyperglycemia E11.65 ; Morbid obesity due to excess calories E66.01 and Essential hypertension I10 [place] [id number] [place] [address] [id number] May, Diabetes type 2, uncontrolled E11.65 ; Encounter for immunization Z23 and Morbid obesity due to excess calories E66.01 [place] [id number] [place] [address] [id number] May, [facility] [address] [address] Apr, [place] [id number] [place] [address] [id number] Apr, Hyperglycemia R73.[address] [id number] Apr, [address] [id number] Apr, Depression F32.9 ; Encounter for immunization Z23 ; Hyperglycemia R73.9 and Anemia in other chronic diseases classified elsewhere D63.8 [facility] [id number] [place] [address] [id number] Mar, [address] [place] [address] [id number] Feb, Positive occult stool blood test 792.1 [place] [id number] [place] [address] [id number] Feb, Depression 311 ; Other chronic pain 338.29 and Diabetes with renal manifestations, type II or unspecified type, not stated as uncontrolled 250.40 [facility] [id number] [place] [address] Feb, Occult blood in stools 792.[address] [place] [address] [id number] Feb, Anemia 285.9 ; Occult blood positive stool 792.1 ; Unspecified essential hypertension 401.9 and Other chronic pain 338.29 [facility] [id number], [place] [id number] Feb, [facility] [id number] [place] [address] [id number] Feb, Anemia 285.9 [facility] [id number], [place] [id number] Feb, [facility] [id number] [place] [address] [id number] Feb, [facility] [id number] [place] [address] [id number] Feb, Diabetes with renal manifestations, type II or unspecified type, not stated as uncontrolled 250.40 ; Other chronic pain 338.29 ; Unspecified essential hypertension 401.9 ; Anemia 285.9 and Depression 311 [facility] [id number] [place] [address] [id number] Jan, [facility] [id number] [place] [address] [id number] Jan, Anemia 285.9 and Follow up V67.9 [facility] [id number], [place] [id number] Jan, [facility] [id number] [place] [address] [id number] Jan, [facility] [id number] [place] [address] [id number] Jan, [facility] [id number] [place] [address] [id number] Dec, [facility] [id number] [place] [address] Oct, [facility] [id number] [place] [address] Oct, [facility] [id number] [place] [address] Sep, [facility] [id number], [place] [id number] Sep, [facility] [id number] [place] [address] Sep, [facility] [place] [address] [facility] [id number], [place] [id number] Aug, [facility] [place] [facility] [address] [facility] [id number], [place] [address] Aug, [facility] [place] [facility] [address] [id number], [place] [address] Aug, [facility] [place] [address] [facility] [id number], [place] [id number] Aug, [facility] [place] [facility] [address]00565100[place], [place] [address] Aug, [facility] [place] [facility] [address]00565100[place], [place] [address] Aug, [facility] [place] [id number], [place] [id number] Aug, [facility] [place] [facility] [address]00565100[place], [place] [address] Aug, [facility] [place] [address] [id number], [place] [id number] Jul, [facility] [place] [facility] [address]00565100[place], [place] [address] Jul, [facility] [place] [facility] [address] [id number], [place] [address] Jul, [facility] [place] [address] [facility] [id number], [place] [id number] Jul, [facility] [place] [facility] [address] [id number], [place] [address] Jul, [facility] [place] [address] [facility] [id number], [place] [id number] Jul, [facility] [place] [facility] [address] [id number], [place] [address] Jul, [facility] [place] [address] [id number], [place] [id number] Jun, [facility] [place] [address] [id number], [place] [id number] Jun, [facility] [place] [facility] [address] [facility] [id number], [place] [address] Jun, [facility] [place] [facility] [address] [facility] [id number], [place] [address] Jun, [facility] [place] [address] [facility] [id number], [place] [id number] Jun, [facility] [place] [facility] [address] [facility] [id number], [place] [address] Jun, [facility] [place] [address] [facility] [id number], [place] [id number] May, [facility] [place] [facility] [address] [facility] [id number], [place] [address] May, [facility] [place] [facility] [address] [facility] [id number], [place] [address] May, [facility] [place] [address] [facility] [id number], [place] [id number] Apr, [facility] [place] [facility] [address] [facility] [id number], [place] [address] Apr, [facility] [place] [address] [facility] [id number], [place] [id number] Apr, [facility] [place] [address] [facility] [id number], [place] [id number] Apr, [facility] [place] [facility] [address] [facility] [id number], [place] [address] Apr, [facility] [place] [facility] [address] [facility] [id number], [place] [address] Apr, [facility] [place] [address] [facility] [id number], [place] [id number] Mar, [facility] [place] [facility] [address] [facility] [id number], [place] [address] Mar, [facility] [place] [address] [facility] [id number], [place] [id number] Mar, [facility] [place] [facility] [address] [id number] [place] [address] Mar, [facility] [place] [address] [id number] [place] [id number] Mar, [facility] [place] [facility] [address] [facility] [id number] [place] [address] Mar, [facility] [place] [address] [id number] [place] [id number] Mar, [facility] [place] [facility] [address] [id number] [place] [address] Mar, [facility] [place] [address] [id number] [place] [id number] Mar, [facility] [place] [facility] [address] [facility] [id number] [place] [address] Mar, [facility] [place] [address] [facility] [id number] [place] [id number] Feb, [facility] [place] [facility] [address] [facility] [id number], [place] [address] Feb, [facility] [address] [facility] [id number] [place] [id number] Jan, [facility] [place] [facility] [address] [facility] [id number], [place] [address] Jan, [facility] [address] [facility] [id number] [place] [id number] Jan, [facility] [place] [facility] [address] [facility] [id number], [place] [address] Jan, [facility] [address] [id number] [place] [id number] Jan, [facility] [place] [facility] [address] [facility] [id number], [place] [address] Jan, [facility] [place] [facility] [address] [facility] [id number], [place] [address] Dec, [facility] [place] [facility] [address] [facility] [id number], [place] [address] Dec, [facility] [place] [address] [id number] [place] [id number] November, [facility] [place] [facility] [address] [id number] [place] [address] November, [facility] [address] [id number] [place] [id number] November, [facility] [place] [facility] [address] [id number] [place] [address] November, [facility] [place] [address] [id number] [place] [id number] Oct, [facility] [place] [facility] [address] [id number] [place] [address] Oct, [facility] [place] [facility] [address] [facility] [id number] [place] [address] Oct, [facility] [place] [facility] [address] [facility] [id number] [place] [address] Oct, [facility] [place] [facility] [address] [facility] [id number] [place] [address] Oct, [facility] [place] [facility] [address] [facility] [id number] [place] [address] Oct, [facility] [address] [id number] [place] [id number] Sep, [facility] [place] [address] [id number] [place] [id number] Sep, [facility] [place] [facility] [address] [id number] [place] [address] Sep, [facility] [place] [facility] [address] [id number] [place] [address] Sep, [facility] [place] [address] [id number] [place] [id number] Sep, [facility] [place] [facility] [address] [id number] [place] [address] Sep, [facility] [place] [facility] [address] [facility] [id number], [place] [address] Aug, [facility] [place] [facility] [address] [facility] [id number], [place] [address] Aug, [facility] [address] [id number], [place] [id number] Aug, [facility] [address] [facility] [id number] [place] [id number] Aug, [facility] [place] [facility] [address] [facility] [id number], [place] [address] Aug, [facility] [address] [facility] [id number], [place] [id number] Aug, [facility] [place] [facility] [address] [id number] [address] Aug, [facility] [place] [address] [id number], [place] [id number] Aug, [facility] [place] [facility] [address]00565100[place] [address] Aug, [facility] [place] [address] [facility] [id number], [place] [id number] Aug, [facility] [place] [facility] [address]00565100[place], [place] [address] Aug, [facility] [place] [address] [id number], [place] [id number] Aug, [facility] [place] [facility] [address]00565100[place], [place] [address] Aug, [facility] [place] [facility] [address] [facility] [id number], [place] [address] Jul, [facility] [place] [address] [facility] [id number], [place] [id number] Jun, [facility] [place] [facility] [address] [id number] [address] Jun, [facility] [place] [facility] [address]00565100[place], [place] [address] Jun, [facility] [place] [facility] [address] [id number], [place] [address] Jun, [facility] [address] [facility] [id number], [place] [id number] Jun, [facility] [place] [facility] [address] [facility] [id number], [place] [address] Jun, [facility] [place] [facility] [address] [facility] [id number], [place] [address] Jun, [facility] [place] [address] [facility] [id number], [place] [id number] Jun, [facility] [place] [facility] [address] [id number], [place] [address] Jun, [facility] [place] [facility] [address] [id number] [address] May, [facility] [place] [address] [id number], [place] [id number] May, [facility] [place] [facility] [address] [id number], [place] [address] May, [facility] [place] [facility] [address] [id number], [place] [address] May, [facility] [place] [facility] [address]00565100[place], [place] [address] May, [facility] [place] [facility] [address] [facility] [id number], [place] [address] May, [facility] [place] [address] [facility] [id number], [place] [id number] May, [facility] [place] [facility] [address] [facility] [id number], [place] [address] May, [facility] [place] [address] [facility] [id number], [place] 696234932 May, [facility] [place] [facility] [address] [id number] [address] May, [facility] [place] [address] [facility] [id number], [place] [id number] Apr, [facility] [place] [facility] [address] [facility] [id number], [place] [address] Apr, [facility] [place] [facility] [address] [facility] [id number], [place] [address] Apr, [facility] [place] [address] [facility] [id number], [place] [id number] Apr, [facility] [place] [facility] [address] [facility] [id number], [place] [address] Apr, [facility] [place] [facility] [address] [facility] [id number], [place] [address] Apr, [facility] [place] [address] [id number], [place] [id number] Apr, [facility] [place] [facility] [address]00565100[place], [place] [address] Apr, [facility] [place] [facility] [address] [facility] [id number], [place] [address] Apr, [facility] [place] [facility] [address] [facility] [id number], [place] [address] Apr, [facility] [place] [id number], [place] 595540640 Apr, [facility] [place] [facility] [address] [facility] [id number], [place] [address] Apr, [facility] [place] [address] [facility] [id number], [place] 959700517 Apr, [facility] [place] [facility] [address] [facility] [id number], [place] [address] Apr, [facility] [place] [address] [facility] [id number], [place] [id number] Apr, [facility] [place] [facility] [address]00565100[place], [place] [address] Apr, [facility] [place] [facility] [address] [facility] [id number], [place] [address] Apr, [facility] [address] [facility] [id number], [place] [address] Apr, [facility] [place] [address] [id number], [place] [id number] Apr, [facility] [address] [facility] [id number], [place] [address] Mar, [facility] [address] [facility] [id number], [place] [address] Mar, [facility] [place] [address] [id number] [place] [id number] Mar, [facility] [place] [address] [id number] [place] [id number] Mar, [facility] [place] [address] [id number] [place] [id number] Mar, [facility] [place] [address] [id number] [place] [id number] Feb, [facility] [place] [address] [id number] [place] [id number] Feb, [facility] [place] [address] [id number] [place] [id number] Feb, [facility] [address] [facility] [id number], [place] [address] Feb, [facility] [place] [address] [id number] [place] [id number] Feb, [facility] [place] [address] [id number] [place] [id number] Feb, [facility] [place] [address] [id number] [place] [id number] Feb, [facility] [place] [address] [id number] [place] 064781559 Feb, [facility] [place] [address] [id number] [place] [id number] Feb, [facility] [place] [address] [id number] [place] [id number] Jan, [facility] [place] [address] [id number] [place] 092371144 Jan, [facility] [place] [address] [id number] [place] 863101777 Jan, [facility] [place] [address] [id number] [place] 214837177 Jan, [facility] [place] [address] [id number] [place] 517628129 Jan, [facility] [address]00565100[place], [place] [address] Jan, [facility] [place] [address] [id number] [place] [id number] Jan, [facility] [place] [address] [id number] [place] [id number] Jan, [facility] [place] [address] [id number] [place] 038549772 Dec, [facility] [place] [address] [id number] [place] 130740430 November, [facility] [place] [address] [id number] [place] [id number] November, [facility] [place] [address] [id number] [place] [id number] November, [facility] [place] [address] [id number] [place] [id number] November, [facility] [place] [address] [id number] [place] [id number] November, [facility] [place] [address] [id number] [place] [id number] November, [facility] [place] [address] [id number] [place] [id number] Jul, [facility] [place] [address] [id number] [place] [id number] Jul, [facility] [place] [address] [id number] [place] [id number] Jul, [facility] [place] [address] [id number] [place] [id number] Jun, [facility] [id number], [place] [address] Jun, [facility] [place] [address] [id number][place] [id number] May, [facility] [address] [facility] [id number], [place] [address] May, [facility] [place] [address] [id number][place] [id number] May, [facility] [address] [facility] [id number], [place] [address] May, [facility] [place] [address] [id number] [place] [id number] May, [facility] [address] [facility] [id number], [place] [address] May, [facility] [place] [address] [facility] [id number][place] [id number] Apr, [facility] [address] [facility] [id number], [place] [address] Apr, [facility] [address] [facility] [id number], [place] [address] Apr, [facility] [place] [address] [id number][place] [id number] Apr, [facility] [place] [address] [id number][place] [id number] Apr, [facility] [address] [facility] [id number], [place] [address] Apr, [facility] [address] [facility] [id number][place] [address] Apr, [facility] [place] [address] [id number][place] [id number] Apr, [facility] [address] [facility] [id number], [place] [address] Apr, [facility] [place] [address] [id number], [place] [id number] Apr, [facility] [place] [address] [id number] [place] [id number] Apr, [facility] [place] [address] [id number] [place] [id number] Mar, [facility] [place] [address] [id number] [place] [id number] Feb, [facility] [place] [address] [id number] [place] [id number] Jan, [facility] [place] [address] [id number] [place] [id number] Dec, [facility] [place] [address] [id number] [place] [id number] Dec, [facility] [place] [address] [id number] [place] [id number] Dec, [facility] [place] [address] [id number] [place] [id number] Dec, [facility] [place] [address] [id number] [place] [id number] Dec, [facility] [place] [address] [id number] [place] [id number] November, [facility] [place] [address] [id number] [place] [id number] November, [facility] [place] [address] [id number] [place] [id number] November, [facility] [address] [facility] [id number], [place] [address] November, [facility] [place] [address] [id number] [place] [id number] November, [facility] [place] [address] [id number] [place] [id number] November, [facility] [place] [address] [id number] [place] [id number] Oct, [facility] [place] [address] [id number] [place] [id number] Oct, [facility] [place] [address] [id number] [place] [id number] Oct, [facility] [place] [address] [id number] [place] [id number] Oct, [facility] [place] [address] [id number] [place] [id number] Oct, [facility] [place] [address] [id number] [place] [id number] Oct, [facility] [place] [address] [id number] [place] [id number] Sep, [facility] [place] [address] [id number] [place] [id number] Aug, [facility] [place] [address] [id number] [place] [id number] Aug, [facility] [place] [address] [id number] [place] [id number] Jul, [facility] [address] [id number], [place] [address] Jun, [facility] [id number] [place] [address] Jun, [facility] [address] [id number], [place] [address] Jun, [facility] [id number] [place] [address] Jun, [facility] [address] [id number], [place] [address] May, [facility] [address] [id number], [place] [address] May, [facility] [place] [facility] [id number] [address] Apr, [facility] [place] [facility] [id number] [place] [address] Apr, [facility] [place] [facility] [address] [id number] [address] Apr, [facility] [place] [facility] [id number], [place] [address] Feb, [facility] [place] [facility] [address] [id number] [place] [address] 15 Aug, 2010 [facility] [place] [facility] [address] [id number] [place] [address] 18 Jul, 2010 [facility] [place] [facility] [address] [id number] [place] [address] 30 Jun, 2010 [facility] [place] [facility] [address] [id number] [place] [address] 29 May, 2010 [facility] [place] [facility] [address] [id number] [place] [address] May, [facility] [place] [facility] [address] [id number] [place] [address] May, [facility] [place] [facility] [address] [id number] [place] [address] May, [facility] [place] [facility] [address] [id number] [place] [address] May, [facility] [place] [facility] [address] [id number] [place] [address] 16 Aug, 2009 [facility] [place] [facility] [address] [id number] [place] [address] Jun, [facility] [place] [facility] [address] [id number] [place] [address] Jun, [facility] [place] [facility] [address] [id number] [place] [address] Jun, [facility] [place] [facility] [address] [id number] [place] [address] 24 May, 2009 [facility] [place] [facility] [address] [id number] [place] [address] 28 Apr, 2009 [facility] [place] [facility] [address] [id number] [place] [address] Apr, [facility] [place] [facility] [address] [id number] [place] [address] Apr, [facility] [address] [facility] [id number] [place] [address] Jan, [facility] [address] [facility] [id number], [place] [address] Oct, [facility] [address] [facility] [id number], [place] [address] May, [facility] [address] [facility] [id number], [place] [address] May, IMMUNIZATIONS No Known Immunizations SOCIAL HISTORY Never Assessed REASON FOR VISIT PLAN OF CARE VITAL SIGNS MEDICATIONS Medication [...] Dialysis [facility] Reveles 2012 -Dr. Simon now [facility] Medical History Colonoscopy (polyps 2 ) [...]
--- OUTSIDE RECORDS SUMMARY | 2018-12-28 18:10 | XMS REPORT ---
Author Author RIYA PHILLIPS Organization [facility] Address [address] [place] [address] Care Team Providers Care Pharmacology Associate Name Role Phone ALAN RIYA Unavailable PROBLEMS Type Condition ICD9-CM Code QQJ35-DW Code Onset Dates Condition Status SNOMED Code Problem Chronic kidney disease, stage 4 (severe) N18.4 Active 484896803 Problem Psoriasis of scalp L40.9 Active 996423963 Problem Type 2 diabetes mellitus with hyperglycemia E11.65 Active 377565155897191 Problem Fibromyalgia M79.7 Active 446227429 Problem History of DVT (deep vein thrombosis) Z86.718 Active 896139786 Problem Carpal tunnel syndrome, bilateral G56.03 Active 58042248467106004 Problem Type 2 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 Active 956914907 Problem Anemia in other chronic diseases classified elsewhere D63.8 Active 693650294 Problem 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 Active 335811932 Problem Paresthesia of right upper extremity R20.2 Active 79152438 Problem Bilateral lower extremity edema R60.0 Active 398917190 Problem Supplemental oxygen dependent Z99.81 Active 433575885043 Problem Sleep apnea in adult G47.33 Active 56247697 Problem Chronic pain syndrome G89.4 Active 776873068 Problem 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 Active 230506520 Problem Essential hypertension I10 Active 10637166 Problem Gastroesophageal reflux disease without esophagitis K21.9 Active 776260649 Problem Chronic obstructive pulmonary disease, unspecified COPD type J44.9 Active 79745537 Problem 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 Active 501113138568637 Problem Primary insomnia F51.01 Active 5310834 Problem Oxygen desaturation during sleep G47.34 Active 007069714 Problem Right carpal tunnel syndrome G56.01 Active 094877656042841 Problem Diabetic polyneuropathy associated with type 2 diabetes mellitus E11.42 Active 12808143 Problem Depression, unspecified depression type F32.9 Active 55225559 ALLERGIES No Information ENCOUNTERS Encounter Location Date Diagnosis [facility] [id number] [address] Feb, [facility] [id number] [address] Feb, [facility] [address] [address] Jan, [facility] [id number], [place] [address] Jan, [facility] [id number], [place] [address] Jan, [id number] [id number] Jan, [facility] [id number] [address] Jan, [facility] [address] [address] Jan, [facility] [address], [place] [address] Jan, Essential hypertension I10 [facility] [id number], [place] [address] Jan, Chronic obstructive pulmonary disease, unspecified COPD type J44.9 [facility] [id number], [place] [address] Jan, [facility] [id number], [place] [address] Jan, [facility] [address], [place] [address] Jan, Type 2 diabetes mellitus with other diabetic kidney complication E11.29 ; Anemia in other chronic diseases classified elsewhere D63.8 ; Chronic obstructive pulmonary disease, unspecified COPD type J44.9 and BMI 60.0-69.9, adult Z68.44 [facility] [id number] [place] [address] Jan, [facility] [id number] [place] [address] Jan, [facility] [id number] [place] [id number] Jan, [facility] [id number] [place] [address] [phone] Dec, [facility] [id number] [place] [phone] Dec, [facility] [id number] [place] [phone] Dec, Essential hypertension I10 ; Type 2 diabetes mellitus with other diabetic kidney complication E11.29 ; Depression, unspecified depression type F32.9 ; Supplemental oxygen dependent Z99.81 ; Chronic pain syndrome G89.4 ; Fibromyalgia M79.7 ; Carpal tunnel syndrome, bilateral G56.03 and Chronic kidney disease, stage 4 (severe) N18.4 [facility] [id number] [place] [address] Dec, Essential hypertension I10 [facility] [id number] [place] [address] November, Type 2 diabetes mellitus with other diabetic kidney complication E11.29 [facility] [id number] [place] [address] November, Chronic pain syndrome G89.4 [facility] [id number] [place] [address] November, [facility] [id number] [place] [address] November, [facility] [id number] [place] [address] November, [facility] [id number] [place] [address] Oct, Type 2 diabetes mellitus with other diabetic kidney complication E11.29 [place] [address], [place] [address] Oct, Primary insomnia F51.01 [facility] [id number] [id number] Oct, Bilateral lower extremity edema R60.0 [facility] [id number] [place] [address] Oct, [facility] [id number] [place] [address] Sep, Type 2 diabetes mellitus with other diabetic kidney complication E11.29 and Chronic obstructive pulmonary disease, unspecified COPD type J44.9 [facility] [address] [place] [address] 15 Aug, 2017 Type 2 diabetes mellitus with other diabetic kidney complication E11.29 [facility] [id number] [place] [address] 12 Aug, 2017 Gastroesophageal reflux disease without esophagitis K21.9 ; skilled nursing current use of anticoagulant Z79.01 ; Chronic pain syndrome G89.4 ; Essential hypertension I10 and Type 2 diabetes mellitus with other diabetic kidney complication E11.29 [facility] [address], [place] [address] 08 Aug, 2017 Chronic pain syndrome G89.4 [facility] [address] [place] [address] Aug, Type 2 diabetes mellitus with other diabetic kidney complication E11.29 [facility] [address], [place] [address] Jul, Diabetic polyneuropathy associated with type 2 diabetes mellitus E11.42 [facility] [address], [place] [address] Jul, Primary insomnia F51.01 [facility] [address] [place] [address] Jul, [facility] [address], [place] [address] Jul, Type 2 diabetes mellitus with other diabetic kidney complication E11.29 and Chronic obstructive pulmonary disease, unspecified COPD type J44.9 [facility] [address], [place] [address] Jul, Type 2 diabetes mellitus with other diabetic kidney complication E11.29 [facility] [id number] [place] [address] Jun, Type 2 diabetes mellitus with other diabetic kidney complication E11.29 [facility] [id number] [place] [address] Jun, [facility] [id number] [place] [address] Jun, Chronic obstructive pulmonary disease, unspecified COPD type J44.9 [facility] [address] [place] [address] May, Type 2 diabetes mellitus with other diabetic kidney complication E11.29 [facility] [address] [place] [address] May, 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 and Essential hypertension I10 [address] [place] [address] May, Anemia in other chronic diseases classified elsewhere D63.8 ; Chronic obstructive pulmonary disease, unspecified COPD type J44.9 ; Oxygen desaturation during sleep G47.34 ; Sleep apnea in adult G47.33 and Supplemental oxygen dependent Z99.81 [id number] [place] [address] May, Type 2 diabetes mellitus with other diabetic kidney complication E11.29 ; Essential hypertension I10 ; Chronic pain syndrome G89.4 ; BMI 40.0- 44.9, adult Z68.41 ; Gastroesophageal reflux disease without esophagitis K21.9 ; skilled nursing current use of anticoagulant Z79.01 ; 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 ; Diabetic polyneuropathy associated with type 2 diabetes mellitus E11.42 ; Edema of both legs R60.0 and Supplemental oxygen dependent Z99.81 [facility] [id number] [place] [address] 08 May, 2017 [facility] [id number] [place] [address] May, Essential hypertension I10 and Gastroesophageal reflux disease without esophagitis K21.9 [facility] [id number] [place] [address] May, [facility] [address] [place] [address] May, Type 2 diabetes mellitus with other diabetic kidney complication E11.29 and 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 [facility] [address] [place] [address] Apr, Chronic pain syndrome G89.4 and Essential hypertension I10 [facility] [address] [place] [address] Apr, Type 2 diabetes mellitus with other diabetic kidney complication E11.29 [facility] [address] [place] [address] Apr, Type 2 diabetes mellitus with other diabetic kidney complication E11.29 [facility] [address] [place] [address] Apr, Essential hypertension I10 [facility] [id number] [place] [address] Apr, Gastroesophageal reflux disease without esophagitis K21.9 [facility] [address] [place] [address] Apr, Type 2 diabetes mellitus with other diabetic kidney complication E11.29 [facility] [address] [place] [address] Apr, Type 2 diabetes mellitus with other diabetic kidney complication E11.29 and skilled nursing current use of anticoagulant Z79.01 [facility] [address] [place] [address] 27 Mar, 2017 Encounter for immunization Z23 and Preoperative examination Z01.818 [facility] [id number] [place] [address] Mar, [facility] [id number] [place] [address] Mar, Type 2 diabetes mellitus with other diabetic kidney complication E11.29 [facility] [address] [place] [address] 08 Mar, 2017 Type 2 diabetes mellitus with other diabetic kidney complication E11.29 [facility] [address] [place] [address] Mar, Gastroesophageal reflux disease without esophagitis K21.9 [facility] [address] [place] [address] Mar, Essential hypertension I10 [facility] [address] [place] [address] Feb, skilled nursing current use of anticoagulant Z79.01 [facility] [address] [place] [address] Feb, Type 2 diabetes mellitus with other diabetic kidney complication E11.29 [facility] [address] [place] [address] Feb, Type 2 diabetes mellitus with other diabetic kidney complication E11.29 [facility] [address] [place] [address] Feb, Type 2 diabetes mellitus with other diabetic kidney complication E11.29 [facility] [address] [place] [address] Feb, Gastroesophageal reflux disease without esophagitis K21.9 [facility] [address] [place] [address] Feb, Type 2 diabetes mellitus with other diabetic kidney complication E11.29 [facility] [address], [place] [address] Feb, skilled nursing current use of anticoagulant Z79.01 [facility] [address], [place] [address] Jan, Type 2 diabetes mellitus with other diabetic kidney complication E11.29 [facility] [address], [place] [address] Jan, Type 2 diabetes mellitus with other diabetic kidney complication E11.29 [facility] [address], [place] [address] Jan, Chronic pain syndrome G89.4 [facility] [address], [place] [address] Jan, [facility] [id number], [place] [address] Jan, [facility] [address], [place] [address] Jan, [facility] [address], [place] [address] Jan, [facility] [address], [place] [address] Jan, Primary insomnia F51.01 ; Type 2 diabetes mellitus with other diabetic kidney complication E11.29 ; Chronic pain syndrome G89.4 and Essential hypertension I10 [facility] [address], [place] [address] Jan, Primary insomnia F51.01 [facility] [address], [place] [address] Jan, Type 2 diabetes mellitus with other diabetic kidney complication E11.29 [facility] [address], [place] [address] Jan, [facility] [id number] [place] [address] Jan, Chronic obstructive pulmonary disease, unspecified COPD type J44.9 [facility] [address] [place] [address] Jan, Essential hypertension I10 ; Type 2 diabetes mellitus with other diabetic kidney complication E11.29 ; Chronic obstructive pulmonary disease, unspecified COPD type J44.9 ; Chronic kidney disease, stage 4 (severe) N18.4 ; Right carpal tunnel syndrome G56.01 ; 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 ; skilled nursing (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 and Diabetic polyneuropathy associated with type 2 diabetes mellitus E11.42 [facility] [address] [place] [address] Jan, Gastroesophageal reflux disease without esophagitis K21.9 [facility] [id number] [place] [address] Dec, [facility] [id number] [place] [address] Dec, [facility] [address] [place] [address] Dec, skilled nursing current use of anticoagulant Z79.01 ; Chronic pain syndrome G89.4 and Essential hypertension I10 [facility] [id number] [place] [address] Dec, [facility] [id number] [place] [address] Dec, Type 2 diabetes mellitus with other diabetic kidney complication E11.29 [facility] [address] [place] [address] Dec, [facility] [address] [place] [address] Dec, Gastroesophageal reflux disease without esophagitis K21.9 [facility] [address] [place] [address] November, Type 2 diabetes mellitus with other diabetic kidney complication E11.29 [facility] [address], [place] [address] November, [facility] [address] [place] [address] November, Type 2 diabetes mellitus with other diabetic kidney complication E11.29 [facility] [address], [place] [address] November, [facility] [address], [place] [address] November, Type 2 diabetes mellitus with other diabetic kidney complication E11.29 [facility] [address] [place] [address] November, [facility] [address] [address] Oct, Essential hypertension I10 [facility] [address] [place] [address] Oct, Psoriasis of scalp L40.9 [facility] [address] [place] [address] Oct, Essential hypertension I10 and Chronic pain syndrome G89.4 [facility] [address], [place] [address] Oct, [facility] [address], [place] [address] Sep, Type 2 diabetes mellitus with other diabetic kidney complication E11.29 [facility] [address], [place] [address] Sep, [facility] [address] [place] [address] Sep, Type 2 diabetes mellitus with other diabetic kidney complication E11.29 [facility] [address], [place] [address] 20 Mar, 2017 Type 2 diabetes mellitus with other diabetic kidney complication E11.29 [facility] [address] [place] [address] 09 Sep, 2016 Type 2 diabetes mellitus with other diabetic kidney complication E11.29 ; Chronic kidney disease, stage 4 (severe) N18.4 ; Chronic obstructive pulmonary disease, unspecified COPD type J44.9 ; Iron deficiency anemia due to chronic blood loss D50.0 ; 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 ; Gastroesophageal reflux disease without esophagitis K21.9 ; Essential hypertension I10 ; Primary insomnia F51.01 ; Depression, unspecified depression type F32.9 ; Chronic pain syndrome G89.4 ; Wrist pain, right M25.531 ; Paresthesia of right upper extremity R20.2 and Psoriasis of scalp L40.9 [facility] [address] [place] [address] Sep, [address] [address] Aug, Essential hypertension I10 [place] [id number] [place] [address] Aug, History of DVT (deep vein thrombosis) Z86.718 [facility] [address] [place] [address] Aug, [facility] [address] [place] [address] Jul, [facility] [address] [place] [address] Jul, [place] [id number] [place] [address] Jul, skilled nursing current use of anticoagulant Z79.01 ; Chronic pain syndrome G89.4 and Chronic kidney disease, stage 4 (severe) N18.4 [facility] [address] [place] [address] Jul, [address] [place] [address] Jul, [facility] [address], [place] [address] Jul, [facility] [address], [place] [address] Jul, [facility] [address], [place] [address] Jul, [facility] [address] [place] [address] Jul, Type 2 diabetes mellitus with other diabetic kidney complication E11.29 [facility] [address] [place] [address] Jul, History of DVT (deep vein thrombosis) Z86.718 [facility] [address] [place] [address] Jun, [facility] [address] [place] [address] Jun, History of DVT (deep vein thrombosis) Z86.718 [facility] [address] [place] [address] 15 Jun, 2016 Post traumatic stress disorder (PTSD) F43.10 [address], [place] [address] 07 Jun, 2016 Type 2 diabetes mellitus with other diabetic kidney complication E11.29 ; Diabetic polyneuropathy associated with type 2 diabetes mellitus E11.42 ; Iron deficiency anemia due to chronic blood loss D50.0 ; Chronic obstructive pulmonary disease, unspecified COPD type J44.9 ; 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 ; History [...] pain M79.641 and Right wrist pain M25.531 [facility] [address], [place] [address] May, [facility] [id number] [place] [address] May, [facility] [address] [place] [address] May, [facility] [address] [place] [address] May, [facility] [address] [place] [address] May, Anemia in other chronic diseases classified elsewhere D63.8 [facility] [address] [place] [address] May, [facility] [address] [place] [address] Apr, [facility] [address] [place] [address] 27 Mar, 2016 Dermatofibroma D23.9 [facility] [address] [address] Mar, [facility] [address] [place] [address] 14 Mar, 2016 Chronic pain syndrome G89.4 [facility] [address] [address] 09 Mar, 2016 [facility] [id number] [place] [address] 07 Mar, 2016 [facility] [address], [place] [address] 06 Mar, 2016 [facility] [address], [place] [address] Feb, [facility] [id number] [place] [address] Feb, [facility] [id number] [place] [address] Feb, [facility] [id number] [place] [address] Feb, [facility] [id number] [place] [address] Feb, [facility] [id number] [place] [address] Feb, [facility] [address] [place] [address] Feb, Type 2 diabetes mellitus with other diabetic kidney complication E11.29 ; Diabetic polyneuropathy associated with type 2 diabetes mellitus E11.42 ; Iron deficiency anemia due to chronic blood loss D50.0 ; Chronic obstructive pulmonary disease, unspecified COPD type J44.9 ; 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 ; History of DVT (deep vein thrombosis) Z86.718 ; Chronic pain syndrome G89.4 ; Oxygen desaturation during sleep G47.34 ; Sleep apnea in adult G47.33 ; Gastroesophageal reflux disease without esophagitis K21.9 ; Essential hypertension I10 ; Primary insomnia F51.01 ; Depression, unspecified depression type F32.9 and Renal failure, chronic, stage 4 (severe) N18.4 [facility] [address], [place] [address] Feb, Skin tags, multiple acquired L91.8 [facility] [id number] [place] [address] Jan, [facility] [address] [address] Jan, Dental examination Z01.20 [facility] [id number] [place] [place] [address] Jan, [id number] [place] [address] Jan, Type 2 diabetes mellitus with other diabetic kidney complication E11.29 ; Diabetic polyneuropathy associated with type 2 diabetes mellitus E11.42 ; Iron deficiency anemia due to chronic blood loss D50.0 ; Chronic obstructive pulmonary disease, unspecified COPD type J44.9 ; 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 ; History of DVT (deep vein thrombosis) Z86.718 ; Chronic pain syndrome G89.4 ; Oxygen desaturation during sleep G47.34 ; Sleep apnea in adult G47.33 ; Gastroesophageal reflux disease without esophagitis K21.9 ; Essential hypertension I10 ; Primary insomnia F51.01 ; Depression, unspecified depression type F32.9 ; Skin lesion L98.9 and Renal failure, chronic, stage 4 (severe) N18.4 [id number] [place] [address] Dec, Diabetes type 2, uncontrolled E11.65 [place] [id number] [place] [address] Dec, [address] [address] Dec, Type 2 diabetes mellitus with other [...] and Depression, unspecified depression type F32.9 [facility] [id number] [place] [address] [id number] Dec, Dental caries K02.9 [facility] [id number] [place] [address] [id number] Dec, [facility] [address] [id number] [place] [id number] Dec, Dental examination Z01.20 [facility] [address] [id number] [id number] November, Dental examination Z01.20 and Dental caries K02.9 [facility] [address] [id number][place] [id number] Oct, [facility] [address] [id number] [place] [address] [id number] Oct, [facility] [id number] [place] [address] [id number] Sep, [facility] [address] [id number] [place] [address] [id number] Sep, [facility] [address] [id number] [place] [address] [id number] Sep, [facility] [address] [id number] [place] [address] [id number] Sep, Other chronic pain 338.29 [facility] [address] [id number] [place] [address] [id number] Aug, Diabetes type 2, uncontrolled E11.65 and Morbid obesity due to excess calories E66.01 [facility] [id number] [place] [address] [id number] Aug, Hair loss L65.9 [facility] [address] [id number], [place] [id number] Aug, [facility] [address] [id number] [place] [address] [id number] Jul, [facility] [address] [id number][place] [id number] Jul, [facility] [address] [id number] [place] [address] [id number] Jun, [facility] [address] [id number] [place] [address] [id number] Jun, Hair loss L65.9 and Disorder of the skin and subcutaneous tissue, unspecified L98.9 [id number] [place] [address] [id number] May, Type 2 diabetes mellitus with other diabetic kidney complication E11.29 ; Type 2 diabetes mellitus with hyperglycemia E11.65 ; Morbid obesity due to excess calories E66.01 and Essential hypertension I10 [place] [id number] [place] [address] [id number] May, Diabetes type 2, uncontrolled E11.65 ; Encounter for immunization Z23 and Morbid obesity due to excess calories E66.01 [place] [id number] [place] [address] [id number] May, [facility] [address] [address] Apr, [place] [id number] [place] [address] [id number] Apr, Hyperglycemia R73.[address] [id number] Apr, [address] [id number] Apr, Depression F32.9 ; Encounter for immunization Z23 ; Hyperglycemia R73.9 and Anemia in other chronic diseases classified elsewhere D63.8 [facility] [id number] [place] [address] [id number] Mar, [id number] [place] [address] [id number] Feb, Positive occult stool blood test 792.1 [place] [id number] [place] [address] [id number] Feb, Depression 311 ; Other chronic pain 338.29 and Diabetes with renal manifestations, type II or unspecified type, not stated as uncontrolled 250.40 [facility] [id number] [place] [address] Feb, Occult blood in stools 792.1 [id number] [place] [address] [id number] Feb, Anemia 285.9 ; Occult blood positive stool 792.1 ; Unspecified essential hypertension 401.9 and Other chronic pain 338.29 [facility] [id number], [place] [id number] Feb, [facility] [id number] [place] [address] [id number] Feb, Anemia 285.9 [facility] [id number], [place] [id number] Feb, [facility] [id number] [place] [address] [id number] Feb, [facility] [id number] [place] [address] [id number] Feb, Diabetes with renal manifestations, type II or unspecified type, not stated as uncontrolled 250.40 ; Other chronic pain 338.29 ; Unspecified essential hypertension 401.9 ; Anemia 285.9 and Depression 311 [facility] [id number] [place] [address] [id number] Jan, [facility] [id number] [place] [address] [id number] Jan, Anemia 285.9 and Follow up V67.9 [facility] [id number], [place] [id number] Jan, [facility] [id number] [place] [address] [id number] Jan, [facility] [id number] [place] [address] [id number] Jan, [facility] [id number] [place] [address] [id number] Dec, [facility] [id number] [place] [address] Oct, [facility] [id number] [place] [address] Oct, [facility] [id number] [place] [address] Sep, [facility] [id number], [place] [id number] Sep, [facility] [id number] [place] [address] Sep, [facility] [place] [address] [facility] [id number], [place] [id number] Aug, [facility] [place] [facility] [address] [facility] [id number] [address] Aug, [facility] [place] [facility] [address] [id number], [place] [address] Aug, [facility] [place] [address] [facility] [id number], [place] [id number] Aug, [facility] [place] [facility] [id number], [place] [address] Aug, [facility] [place] [facility] [id number], [place] [address] Aug, [facility] [place] [id number], [place] [id number] Aug, [facility] [place] [facility] [id number], [place] [address] Aug, [facility] [place] [address] [id number], [place] [id number] Jul, [facility] [place] [facility] [id number], [place] [address] Jul, [facility] [place] [facility] [address] [id number], [place] [address] Jul, [facility] [place] [address] [facility] [id number], [place] [id number] Jul, [facility] [place] [facility] [address] [id number], [place] [address] Jul, [facility] [place] [address] [facility] [id number], [place] [id number] Jul, [facility] [place] [facility] [address] [id number] [address] Jul, [facility] [place] [address] [id number], [place] [id number] Jun, [facility] [place] [address] [id number], [place] [id number] Jun, [facility] [place] [facility] [address] [facility] [id number][place] [address] Jun, [facility] [place] [facility] [address] [facility] [id number][place] [address] Jun, [facility] [place] [address] [facility] [id number], [place] [id number] Jun, [facility] [place] [facility] [address] [facility] [id number][place] [address] Jun, [facility] [place] [address] [facility] [id number], [place] [id number] May, [facility] [place] [facility] [address] [facility] [id number][place] [address] May, [facility] [place] [facility] [address] [facility] [id number], [place] [address] May, [facility] [place] [address] [facility] [id number], [place] [id number] Apr, [facility] [place] [facility] [address] [facility] [id number][place] [address] Apr, [facility] [place] [address] [facility] [id number], [place] [id number] Apr, [facility] [place] [address] [facility] [id number], [place] [id number] Apr, [facility] [place] [facility] [address] [facility] [id number][place] [address] Apr, [facility] [place] [facility] [address] [facility] [id number] [address] Apr, [facility] [place] [address] [facility] [id number], [place] [id number] Mar, [facility] [place] [facility] [address] [facility] [id number][place] [address] Mar, [facility] [place] [address] [facility] [id number], [place] [id number] Mar, [facility] [place] [facility] [address] [id number] [place] [address] Mar, [facility] [place] [address] [id number] [place] [id number] Mar, [facility] [place] [facility] [address] [facility] [id number] [place] [address] Mar, [facility] [place] [address] [id number] [place] [id number] Mar, [facility] [place] [facility] [address] [id number] [place] [address] Mar, [facility] [place] [address] [id number] [place] [id number] Mar, [facility] [place] [facility] [address] [facility] [id number] [place] [address] Mar, [facility] [place] [address] [facility] [id number] [place] [id number] Feb, [facility] [place] [facility] [address] [facility] [id number][place] [address] Feb, [facility] [place] [address] [facility] [id number] [place] [id number] Jan, [facility] [place] [facility] [address] [facility] [id number][place] [address] Jan, [facility] [place] [address] [facility] [id number] [place] [id number] Jan, [facility] [place] [facility] [address] [facility] [id number][place] [address] Jan, [facility] [place] [address] [id number] [place] [id number] Jan, [facility] [place] [facility] [address] [facility] [id number][place] [address] Jan, [facility] [place] [facility] [address] [facility] [id number][place] [address] Dec, [facility] [place] [facility] [address] [facility] [id number], [place] [address] Dec, [facility] [place] [address] [id number] [place] [id number] November, [facility] [place] [facility] [address] [id number] [place] [address] November, [facility] [place] [address] [id number] [place] [id number] November, [facility] [place] [facility] [address] [id number] [place] [address] November, [facility] [place] [address] [id number] [place] [id number] Oct, [facility] [place] [facility] [address] [id number] [place] [address] Oct, [facility] [place] [facility] [address] [facility] [id number] [place] [address] Oct, [facility] [place] [facility] [address] [facility] [id number] [place] [address] Oct, [facility] [place] [facility] [address] [facility] [id number] [place] [address] Oct, [facility] [place] [facility] [address] [facility] [id number] [place] [address] Oct, [facility] [address] [id number] [place] [id number] Sep, [facility] [place] [address] [id number] [place] [id number] Sep, [facility] [place] [facility] [address] [id number] [place] [address] Sep, [facility] [place] [facility] [address] [id number] [place] [address] Sep, [facility] [place] [address] [id number] [place] [id number] Sep, [facility] [place] [facility] [address] [id number] [place] [address] Sep, [facility] [place] [facility] [address] [facility] [id number][place] [address] Aug, [facility] [place] [facility] [address] [facility] [id number], [place] [address] Aug, [facility] [address] [id number], [place] 564613758 Aug, [facility] [place] [address] [facility] [id number] [place] 095013197 Aug, [facility] [place] [facility] [address] [facility] [id number], [place] [address] Aug, [facility] [place] [address] [facility] [id number], [place] [id number] Aug, [facility] [place] [facility] [address] [id number] [address] Aug, [facility] [place] [address] [id number], [place] 229466220 Aug, [facility] [place] [facility] [id number], [place] [address] Aug, [facility] [place] [address] [facility] [id number], [place] 343912874 Aug, [facility] [place] [facility] [id number], [place] [address] Aug, [facility] [place] [address] [id number], [place] [id number] Aug, [facility] [place] [facility] [id number], [place] [address] Aug, [facility] [place] [facility] [address] [facility] [id number], [place] [address] Jul, [facility] [place] [address] [facility] [id number], [place] 547612581 Jun, [facility] [place] [facility] [address] [id number] [address] Jun, [facility] [place] [facility] [id number], [place] [address] Jun, [facility] [place] [facility] [address] [id number][place] [address] Jun, [facility] [place] [address] [facility] [id number], [place] 650793093 Jun, [facility] [place] [facility] [address] [facility] [id number][place] [address] Jun, [facility] [place] [facility] [address] [facility] [id number][place] [address] Jun, [facility] [place] [address] [facility] [id number], [place] 084905025 Jun, [facility] [place] [facility] [address] [id number] [address] Jun, [facility] [place] [facility] [address] [id number], [place] [address] May, [facility] [place] [address] [id number], [place] 216380288 May, [facility] [place] [facility] [address] [id number] [address] May, [facility] [place] [facility] [address] [id number], [place] [address] May, [facility] [place] [facility] [id number], [place] [address] May, [facility] [place] [facility] [address] [facility] [id number][place] [address] May, [facility] [place] [address] [facility] [id number], [place] 503794420 May, [facility] [place] [facility] [address] [facility] [id number], [place] [address] May, [facility] [place] [address] [facility] [id number], [place] 679705931 May, [facility] [place] [facility] [address] [id number], [place] [address] May, [facility] [place] [address] [facility] [id number], [place] 960209322 Apr, [facility] [place] [facility] [address] [facility] [id number], [place] [address] Apr, [facility] [place] [facility] [address] [facility] [id number], [place] [address] Apr, [facility] [place] [address] [facility] [id number], [place] [id number] Apr, [facility] [place] [facility] [address] [facility] [id number], [place] [address] Apr, [facility] [place] [facility] [address] [facility] [id number][place] [address] Apr, [facility] [place] [address] [id number], [place] 348775933 Apr, [facility] [place] [facility] [id number], [place] [address] Apr, [facility] [place] [facility] [address] [facility] [id number][place] [address] Apr, [facility] [place] [facility] [address] [facility] [id number], [place] [address] Apr, [facility] [place] [id number], [place] 795955716 Apr, [facility] [place] [facility] [address] [facility] [id number], [place] [address] Apr, [facility] [place] [address] [facility] [id number], [place] 207111889 Apr, [facility] [place] [facility] [address] [facility] [id number], [place] [address] Apr, [facility] [place] [address] [facility] [id number], [place] 244123249 Apr, [facility] [place] [facility] [address]00565100[place], [place] [address] Apr, [facility] [place] [facility] [address] [facility] [id number], [place] [address] Apr, [facility] [address] [facility] [id number], [place] [address] Apr, [facility] [place] [address] [id number], [place] [id number] Apr, [facility] [address] [facility] [id number], [place] [address] Mar, [facility] [address] [facility] [id number][place] [address] Mar, [facility] [place] [address] [id number] [place] 514475910 Mar, [facility] [place] [address] [id number] [place] 956321400 Mar, [facility] [place] [address] [id number] [place] 869313338 Mar, [facility] [place] [address] [id number] [place] [id number] Feb, [facility] [place] [address] [id number] [place] [id number] Feb, [facility] [address] [id number] [place] 101553472 Feb, [facility] [address] [facility] [id number][place] [address] Feb, [facility] [place] [address] [id number] [place] 133442829 Feb, [facility] [place] [address] [id number] [place] 831201026 Feb, [facility] [place] [address] [id number] [place] 685070139 Feb, [facility] [place] [address] [id number] [place] 309571213 Feb, [facility] [place] [address] [id number] [place] 784213665 Feb, [facility] [place] [address] [id number] [place] 708698328 Jan, [facility] [place] [address] [id number] [place] 6[place]01421 Jan, [facility] [place] [address] [id number] [place] 546367665 Jan, [facility] [place] [address] [id number] [place] 404637821 Jan, [facility] [place] [address] [id number] [place] [id number] Jan, [facility] [id number] [address] Jan, [facility] [place] [address] [id number] [place] [id number] Jan, [facility] [place] [address] [id number] [place] [id number] Jan, [facility] [place] [address] [id number] [place] [id number] Dec, [facility] [place] [address] [id number] [place] [id number] November, [facility] [place] [address] [id number] [place] [id number] November, [facility] [place] [address] [id number] [place] [id number] November, [facility] [place] [address] [id number] [place] [id number] November, [facility] [place] [address] [id number] [place] [id number] November, [facility] [place] [address] [id number] [place] [id number] November, [facility] [place] [address] [id number] [place] [id number] Jul, [facility] [place] [address] [id number] [place] [id number] Jul, [facility] [place] [address] [id number] [place] [id number] Jul, [facility] [place] [address] [id number] [place] [id number] Jun, [facility] [id number] [address] Jun, [facility] [place] [address] [id number] [id number] May, [facility] [address] [facility] [id number] [address] May, [facility] [place] [address] [id number] [id number] May, [facility] [address] [facility] [id number] [address] May, [facility] [place] [address] [id number] [place] [id number] May, [facility] [address] [facility] [id number] [address] May, [facility] [place] [address] [facility] [id number][place] [id number] Apr, [facility] [address] [facility] [id number], [place] [address] Apr, [facility] [address] [facility] [id number] [address] Apr, [facility] [place] [address] [id number] [id number] Apr, [facility] [place] [address] [id number][place] [id number] Apr, [facility] [address] [facility] [id number], [place] [address] Apr, [facility] [address] [facility] [id number] [address] Apr, [facility] [place] [address] [id number][place] [id number] Apr, [facility] [address] [facility] [id number] [address] Apr, [facility] [place] [address] [id number][place] [id number] Apr, [facility] [place] [address] [id number] [place] [id number] Apr, [facility] [place] [address] [id number] [place] [id number] Mar, [facility] [place] [address] [id number] [place] [id number] Feb, [facility] [place] [address] [id number] [place] [id number] Jan, [facility] [place] [address] [id number] [place] [id number] Dec, [facility] [place] [address] [id number] [place] [id number] Dec, [facility] [place] [address] [id number] [place] [id number] Dec, [facility] [place] [address] [id number] [place] [id number] Dec, [facility] [place] [address] [id number] [place] [id number] Dec, [facility] [place] [address] [id number] [place] [id number] November, [facility] [place] [address] [id number] [place] [id number] November, [facility] [place] [address] [id number] [place] [id number] November, [facility] [address] [facility] [id number], [place] [address] November, [facility] [place] [address] [id number] [place] [id number] November, [facility] [place] [address] [id number] [place] [id number] November, [facility] [place] [address] [id number] [place] [id number] Oct, [facility] [place] [address] [id number] [place] [id number] Oct, [facility] [place] [address] [id number] [place] [id number] Oct, [facility] [place] [address] [id number] [place] [id number] Oct, [facility] [place] [address] [id number] [place] [id number] Oct, [facility] [place] [address] [id number] [place] [id number] Oct, [facility] [place] [address] [id number] [place] [id number] Sep, [facility] [place] [address] [id number] [place] [id number] Aug, [facility] [place] [address] [id number] [place] [id number] Aug, [facility] [place] [address] [id number] [place] [id number] Jul, [facility] [address] [id number] [address] Jun, [facility] [id number] [place] [address] Jun, [facility] [id number] [address] Jun, [facility] [place] [facility] [id number] [place] [address] Jun, [facility] [place] [facility] [id number] [address] May, [facility] [place] [facility] [id number] [address] May, [facility] [place] [facility] [id number] [address] Apr, [facility] [place] [facility] [id number] [place] [address] Apr, [facility] [place] [facility] [id number] [address] Apr, [facility] [place] [facility] [id number] [address] Feb, [facility] [place] [facility] [address] [id number] [place] [address] 15 Aug, 2010 [facility] [place] [facility] [address] [id number] [place] [address] 18 Jul, 2010 [facility] [place] [facility] [address] [id number] [place] [address] 30 Jun, 2010 [facility] [place] [facility] [address] [id number] [place] [address] 29 May, 2010 [facility] [place] [facility] [address] [id number] [place] [address] May, [facility] [place] [facility] [address] [id number] [place] [address] May, [facility] [place] [facility] [address] [id number] [place] [address] May, [facility] [place] [facility] [address] [id number] [place] [address] May, [facility] [place] [facility] [address] [id number] [place] [address] 16 Aug, 2009 [facility] [place] [facility] [address] [id number] [place] [address] Jun, [facility] [place] [facility] [address] [id number] [place] [address] Jun, [facility] [place] [facility] [address] [id number] [place] [address] Jun, [facility] [place] [facility] [address] [id number] [place] [address] 24 May, 2009 [facility] [place] [facility] [address] [id number] [place] [address] 28 Apr, 2009 [facility] [place] [facility] [address] [id number] [place] [address] Apr, [facility] [place] [facility] [address] [id number] [place] [address] Apr, [facility] [address] [facility] [id number] [place] [address] Jan, [facility] [address] [facility] [id number] [address] Oct, [facility] [address] [facility] [id number] [address] May, [facility] [address] [facility] [id number] [address] May, IMMUNIZATIONS No Known Immunizations SOCIAL HISTORY Never Assessed REASON FOR VISIT nurse question PLAN OF CARE VITAL SIGNS MEDICATIONS Unknown [...] Dialysis [facility] Reveles 2012 -Dr. Simon now [facility] Medical History Colonoscopy (polyps 2 ) [...]
--- OUTSIDE RECORDS SUMMARY | 2018-12-28 18:11 | XMS REPORT ---
Author Author CHELSY VILLAFANA [facility] Address [address] [place] [address] Care Team Providers Care Tricot Knitter Name Role Phone CHELSY VILLAFANA Unavailable PROBLEMS Type Condition ICD9-CM Code KPF73-GQ Code Onset Dates Condition Status SNOMED Code Problem Chronic kidney disease, stage 4 (severe) N18.4 Active 900467254 Problem Psoriasis of scalp L40.9 Active 252203497 Problem Type 2 diabetes mellitus with hyperglycemia E11.65 Active 805274586740281 Problem Fibromyalgia M79.7 Active 495138678 Problem History of DVT (deep vein thrombosis) Z86.718 Active 390281339 Problem Carpal tunnel syndrome, bilateral G56.03 Active 59869951050628776 Problem Type 2 diabetes mellitus with other diabetic kidney complication E11.29 Active 742985017 Problem Anemia in other chronic diseases classified elsewhere D63.8 Active 940614054 Problem FDC 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 Active 848232581 Problem Paresthesia of right upper extremity R20.2 Active 89362285 Problem Bilateral lower extremity edema R60.0 Active 007461808 Problem Supplemental oxygen dependent Z99.81 Active 458516273490 Problem Sleep apnea in adult G47.33 Active 98678313 Problem Chronic pain syndrome G89.4 Active 771285820 Problem 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 Active 873312364 Problem Essential hypertension I10 Active 26833720 Problem Gastroesophageal reflux disease without esophagitis K21.9 Active 539126160 Problem Chronic obstructive pulmonary disease, unspecified COPD type J44.9 Active 52521162 Problem 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 Active 525445329667059 Problem Primary insomnia F51.01 Active 2858643 Problem Oxygen desaturation during sleep G47.34 Active 032015541 Problem Right carpal tunnel syndrome G56.01 Active 489804807544989 Problem Diabetic polyneuropathy associated with type 2 diabetes mellitus E11.42 Active 16402237 Problem Depression, unspecified depression type F32.9 Active 28318559 ALLERGIES No Information ENCOUNTERS Encounter Location Date Diagnosis [facility] [address] [address] Feb, [facility] [address] [address] Feb, [facility] [address] [address] Jan, [facility] [address] [address] Jan, [facility] [address] [address] Jan, [address] [id number] Jan, [facility] [address] [address] Jan, [facility] [address] [address] Jan, [facility] [address] [address] Jan, Essential hypertension I10 [facility] [address] [address] Jan, Chronic obstructive pulmonary disease, unspecified COPD type J44.9 [facility] [address] [address] Jan, [facility] [address] [address] Jan, [facility] [address] [address] Jan, Type 2 diabetes mellitus with other diabetic kidney complication E11.29 ; Anemia in other chronic diseases classified elsewhere D63.8 ; Chronic obstructive pulmonary disease, unspecified COPD type J44.9 and BMI 60.0-69.9, adult Z68.44 [facility] [id number] [address] Jan, [facility] [id number] [place] [address] Jan, [facility] [id number] [id number] Jan, [facility] [id number] [place] [id number] Dec, [facility] [id number] [place] [id number] Dec, [facility] [id number] [place] [phone] Dec, Essential hypertension I10 ; Type 2 diabetes mellitus with other diabetic kidney complication E11.29 ; Depression, unspecified depression type F32.9 ; Supplemental oxygen dependent Z99.81 ; Chronic pain syndrome G89.4 ; Fibromyalgia M79.7 ; Carpal tunnel syndrome, bilateral G56.03 and Chronic kidney disease, stage 4 (severe) N18.4 [facility] [address] [place] [address] Dec, Essential hypertension I10 [facility] [id number] [place] [address] November, Type 2 diabetes mellitus with other diabetic kidney complication E11.29 [facility] [id number] [address] November, Chronic pain syndrome G89.4 [facility] [address] [address] November, [facility] [id number] [place] [address] November, [facility] [id number] [place] [address] November, [facility] [id number] [address] Oct, Type 2 diabetes mellitus with other diabetic kidney complication E11.29 [facility] [address] [address] Oct, Primary insomnia F51.01 [place] [address] [id number] [id number] Oct, Bilateral lower extremity edema R60.0 [facility] [id number] [place] [address] Oct, [place] [id number] [place] [address] Sep, Type 2 diabetes mellitus with other diabetic kidney complication E11.29 and Chronic obstructive pulmonary disease, unspecified COPD type J44.9 [facility] [address] [place] [address] 15 Aug, 2017 Type 2 diabetes mellitus with other diabetic kidney complication E11.[address] [place] [address] 12 Aug, 2017 Gastroesophageal reflux disease without esophagitis K21.9 ; FDC current use of anticoagulant Z79.01 ; Chronic pain syndrome G89.4 ; Essential hypertension I10 and Type 2 diabetes mellitus with other diabetic kidney complication E11.29 [facility] [address] [address] 08 Aug, 2017 Chronic pain syndrome G89.4 [facility] [address] [place] [address] Aug, Type 2 diabetes mellitus with other diabetic kidney complication E11.29 [facility] [address] [address] Jul, Diabetic polyneuropathy associated with type 2 diabetes mellitus E11.42 [facility] [address] [place] [address] Jul, Primary insomnia F51.01 [facility] [address] [address] Jul, [place] [facility] [address] [address] Jul, Type 2 diabetes mellitus with other diabetic kidney complication E11.29 and Chronic obstructive pulmonary disease, unspecified COPD type J44.9 [facility] [address] [place] [address] Jul, Type 2 diabetes mellitus with other diabetic kidney complication E11.29 [facility] [id number] [place] [address] Jun, Type 2 diabetes mellitus with other diabetic kidney complication E11.29 [facility] [id number] [place] [address] 27 Jun, 2017 [place] [id number] [place] [address] Jun, Chronic obstructive pulmonary disease, unspecified COPD type J44.9 [facility] [id number] [place] [address] May, Type 2 diabetes mellitus with other diabetic kidney complication E11.29 [facility] [id number] [place] [address] May, 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 and Essential hypertension I10 [address] [place] [address] May, Anemia in other chronic diseases classified elsewhere D63.8 ; Chronic obstructive pulmonary disease, unspecified COPD type J44.9 ; Oxygen desaturation during sleep G47.34 ; Sleep apnea in adult G47.33 and Supplemental oxygen dependent Z99.[id number] [place] [address] May, Type 2 diabetes mellitus with other [...] legs R60.0 and Supplemental oxygen dependent Z99.81 [place] [id number] [place] [address] May, [place] [id number] [place] [address] May, Essential hypertension I10 and Gastroesophageal reflux disease without esophagitis K21.9 [place] [address] [address] May, [place] [address] [address] May, Type 2 diabetes mellitus with other diabetic kidney complication E11.29 and 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 [facility] [id number] [place] [address] Apr, Chronic pain syndrome G89.4 and Essential hypertension I10 [facility] [id number] [place] [address] Apr, Type 2 diabetes mellitus with other diabetic kidney complication E11.29 [facility] [id number] [place] [address] Apr, Type 2 diabetes mellitus with other diabetic kidney complication E11.29 [facility] [id number] [place] [address] Apr, Essential hypertension I10 [place] [id number] [place] [address] Apr, Gastroesophageal reflux disease without esophagitis K21.9 [facility] [id number] [place] [address] Apr, Type 2 diabetes mellitus with other diabetic kidney complication E11.29 [facility] [id number] [place] [address] Apr, Type 2 diabetes mellitus with other diabetic kidney complication E11.29 and 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 [facility] [address] [address] 27 Mar, 2017 Encounter for immunization Z23 and Preoperative examination Z01.818 [facility] [id number] [place] [address] Mar, [facility] [id number] [place] [address] Mar, Type 2 diabetes mellitus with other diabetic kidney complication E11.29 [facility] [id number] [place] [address] 08 Mar, 2017 Type 2 diabetes mellitus with other diabetic kidney complication E11.29 [facility] [id number] [place] [address] Mar, Gastroesophageal reflux disease without esophagitis K21.9 [facility] [id number] [place] [address] Mar, Essential hypertension I10 [place] [facility] [id number] [place] [address] Feb, 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 [facility] [id number] [place] [address] Feb, Type 2 diabetes mellitus with other diabetic kidney complication E11.29 [facility] [id number] [place] [address] Feb, Type 2 diabetes mellitus with other diabetic kidney complication E11.29 [facility] [id number] [place] [address] Feb, Type 2 diabetes mellitus with other diabetic kidney complication E11.29 [place] [id number] [place] [address] Feb, Gastroesophageal reflux disease without esophagitis K21.9 [facility] [id number] [place] [address] 03 Aug, 2017 Type 2 diabetes mellitus with other diabetic kidney complication E11.29 [facility] [address] [address] Feb, FDC current use of anticoagulant Z79.01 [facility] [address] [address] Jan, Type 2 diabetes mellitus with other diabetic kidney complication E11.29 [facility] [id number] [place] [address] Jan, Type 2 diabetes mellitus with other diabetic kidney complication E11.29 [facility] [address] [address] Jan, Chronic pain syndrome G89.4 [facility] [id number] [address] Jan, [facility] [id number] [place] [address] Jan, [facility] [address] [address] Jan, [facility] [id number] [place] [address] Jan, [facility] [address] [address] Jan, Primary insomnia F51.01 ; Type 2 diabetes mellitus with other diabetic kidney complication E11.29 ; Chronic pain syndrome G89.4 and Essential hypertension I10 [facility] [address] [address] Jan, Primary insomnia F51.01 [facility] [id number] [place] [address] Jan, Type 2 diabetes mellitus with other diabetic kidney complication E11.29 [facility] [address] [address] Jan, [facility] [id number] [place] [address] Jan, 2017 Chronic obstructive pulmonary disease, unspecified COPD type J44.9 [facility] [id number] [place] [address] Jan, Essential hypertension I10 ; Type 2 diabetes mellitus with other diabetic kidney complication E11.29 ; Chronic obstructive pulmonary disease, unspecified COPD type J44.9 ; Chronic kidney disease, stage 4 (severe) N18.4 ; Right carpal tunnel syndrome G56.01 ; 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 ; paper 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 operator (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 and Diabetic polyneuropathy associated with type 2 diabetes mellitus E11.42 [place] [id number] [place] [address] Jan, Gastroesophageal reflux disease without esophagitis K21.9 [facility] [id number] [place] [address] Dec, [facility] [id number] [place] [address] Dec, [facility] [id number] [place] [address] Dec, FDC current use of anticoagulant Z79.01 ; Chronic pain syndrome G89.4 and Essential hypertension I10 [facility] [id number] [address] Dec, [facility] [id number] [place] [address] Dec, Type 2 diabetes mellitus with other diabetic kidney complication E11.29 [facility] [id number] [address] Dec, [facility] [id number] [place] [address] Dec, Gastroesophageal reflux disease without esophagitis K21.9 [facility] [id number] [place] [address] 24 May, 2017 Type 2 diabetes mellitus with other diabetic kidney complication E11.29 [facility] [address] [address] November, [facility] [address] [place] [address] November, Type 2 diabetes mellitus with other diabetic kidney complication E11.29 [facility] [address] [place] [address] November, [facility] [address] [place] [address] November, Type 2 diabetes mellitus with other diabetic kidney complication E11.29 [facility] [id number] [place] [address] November, [facility] [id number] [place] [address] Oct, Essential hypertension I10 [facility] [id number] [place] [address] Oct, Psoriasis of scalp L40.9 [facility] [id number] [place] [address] Oct, Essential hypertension I10 and Chronic pain syndrome G89.4 [facility] [address] [place] [address] Oct, [facility] [address] [place] [address] Sep, Type 2 diabetes mellitus with other diabetic kidney complication E11.29 [facility] [address] [address] Sep, [facility] [id number] [place] [address] Sep, Type 2 diabetes mellitus with other diabetic kidney complication E11.29 [facility] [address] [address] Sep, Type 2 diabetes mellitus with other diabetic kidney complication E11.29 [place] [id number] [place] [address] 09 Sep, 2017 Type 2 diabetes mellitus [...] extremity R20.2 and Psoriasis of scalp L40.9 [place] [id number] [place] [address] Sep, [address] [address] Aug, Essential hypertension I10 [place] [facility] [address] [address] Aug, History of DVT (deep vein thrombosis) Z86.718 [place] [facility] [id number] [place] [address] Aug, [place] [id number] [place] [address] Jul, [place] [id number] [place] [address] Jul, [place] [id number] [place] [address] Jul, 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 ; Chronic pain syndrome G89.4 and Chronic kidney disease, stage 4 (severe) N18.4 [place] [id number] [place] [address] Jul, [place] [address] [address] Jul, [place] [address] [address] Jul, [place] [id number] [place] [address] Jul, [place] [address] [address] Jul, [place] [id number] [place] [address] Jul, Type 2 diabetes mellitus with other diabetic kidney complication E11.29 [place] [id number] [place] [address] Jul, History of DVT (deep vein thrombosis) Z86.718 [place] [id number] [place] [address] Jun, [place] [id number] [place] [address] Jun, History of DVT (deep vein thrombosis) Z86.718 [place] [id number] [place] [address] 15 Jun, 2016 Post traumatic stress disorder (PTSD) F43.[address] [address] 07 Jun, 2016 Type 2 diabetes mellitus [...] pain M25.531 [facility] [id number] [place] [address] May, [facility] [id number] [place] [address] May, [facility] [address] [address] May, [facility] [id number] [place] [address] May, [facility] [id number] [place] [address] May, Anemia in other chronic diseases classified elsewhere D63.8 [facility] [address] [address] May, [facility] [id number] [place] [address] Apr, [facility] [id number] [place] [address] 27 Mar, 2016 Dermatofibroma D23.9 [facility] [id number] [place] [address] 20 Mar, 2016 [facility] [id number] [place] [address] 14 Mar, 2016 Chronic pain syndrome G89.4 [facility] [id number] [place] [address] 09 Mar, 2016 [facility] [id number] [place] [address] 07 Mar, 2016 [facility] [id number] [place] [address] 06 Mar, 2016 [facility] [address] [place] [address] Feb, [facility] [address] [address] Feb, [facility] [address] [address] Feb, [facility] [id number] [place] [address] Feb, [facility] [id number] [place] [address] Feb, [facility] [id number] [place] [address] Feb, [facility] [id number] [place] [address] Feb, Type 2 diabetes mellitus with other [...] (severe) N18.4 [facility] [address] [address] Feb, Skin tags, multiple acquired L91.8 [facility] [id number] [place] [address] Jan, [facility] [id number] [place] [id number] Jan, Dental examination Z01.20 [facility] [id number] [place] [address] Jan, [facility] [id number] [place] [address] Jan, Type 2 diabetes mellitus with other [...] Renal failure, chronic, stage 4 (severe) N18.4 [place] [id number] [place] [address] Dec, Diabetes type 2, uncontrolled E11.65 [place] [id number] [place] [address] Dec, [place] [id number] [place] [address] Dec, Type 2 diabetes mellitus with other diabetic kidney complication E11.29 ; Diabetic polyneuropathy associated with type 2 diabetes mellitus E11.42 ; Iron deficiency anemia due to chronic blood loss D50.0 ; Chronic obstructive pulmonary disease, unspecified COPD type J44.9 ; 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 ; History of DVT (deep vein thrombosis) Z86.718 ; Chronic pain syndrome G89.4 ; Oxygen desaturation during sleep G47.34 ; Sleep apnea in adult G47.33 ; Gastroesophageal reflux disease without esophagitis K21.9 ; Essential hypertension I10 ; Primary insomnia F51.01 and Depression, unspecified depression type F32.9 [facility] [address] [id number] [id number] Dec, Dental caries K02.9 [facility] [address] [id number] [place] [address] [id number] Dec, [facility] [address] [id number] [place] [id number] Dec, Dental examination Z01.20 [facility] [address] [id number] [place]ID[place] [id number] November, Dental examination Z01.20 and Dental caries K02.9 [facility] [address] [id number], [place] [id number] Oct, [facility] [address] [id number] [place] [address] [id number] Oct, [facility] [address] [id number] [place] [address] [id number] Sep, [facility] [address] [id number] [place] [address] [id number] Sep, [facility] [address] [id number] [place] [address] [id number] Sep, [facility] [address] [id number] [place] [address] [id number] Sep, Other chronic pain 338.29 [facility] [address] [id number] [place] [address] [id number] Aug, Diabetes type 2, uncontrolled E11.65 and Morbid obesity due to excess calories E66.01 [facility] [address] [id number] [place] [address] [id number] Aug, Hair loss L65.9 [facility] [address] [id number], [place] [id number] Aug, [facility] [address] [id number] [place] [address] [id number] Jul, [facility] [address] [id number], [place] [id number] Jul, [facility] [address] [id number] [place] [address] [id number] Jun, [facility] [address] [id number] [place] [address] [id number] Jun, Hair loss L65.9 and Disorder of the skin and subcutaneous tissue, unspecified L98.9 [facility] [id number] [place] [address] [id number] May, Type 2 diabetes mellitus with other diabetic kidney complication E11.29 ; Type 2 diabetes mellitus with hyperglycemia E11.65 ; Morbid obesity due to excess calories E66.01 and Essential hypertension I10 [facility] [id number] [place] [address] [id number] May, Diabetes type 2, uncontrolled E11.65 ; Encounter for immunization Z23 and Morbid obesity due to excess calories E66.01 [facility] [id number] [place] [address] [id number] May, [facility] [address] [address] Apr, [address] [id number] Apr, Hyperglycemia R73.[address] [id number] Apr, [address] [id number] Apr, Depression F32.9 ; Encounter for immunization Z23 ; Hyperglycemia R73.9 and Anemia in other chronic diseases classified elsewhere D63.8 [facility] [place] [id number] [place] [address] [id number] Mar, [place] [id number] [place] [address] [id number] Feb, Positive occult stool blood test 792.1 [place] [id number] [place] [address] [id number] Feb, Depression 311 ; Other chronic pain 338.29 and Diabetes with renal manifestations, type II or unspecified type, not stated as uncontrolled 250.40 [facility] [id number] [place] [address] Feb, Occult blood in stools 792.1 [place] [id number] [place] [address] [id number] Feb, Anemia 285.9 ; Occult blood positive stool 792.1 ; Unspecified essential hypertension 401.9 and Other chronic pain 338.29 [facility] [id number], [place] [id number] Feb, [facility] [id number] [place] [address] [id number] Feb, Anemia 285.9 [facility] [id number] [place] [address] [id number] Feb, [facility] [id number] [place] [address] [id number] Feb, [facility] [id number] [place] [address] [id number] Feb, Diabetes with renal manifestations, type II or unspecified type, not stated as uncontrolled 250.40 ; Other chronic pain 338.29 ; Unspecified essential hypertension 401.9 ; Anemia 285.9 and Depression 311 [facility] [id number] [place] [address] [id number] Jan, [facility] [id number] [place] [address] [id number] Jan, Anemia 285.9 and Follow up V67.9 [facility] [id number] [place] [address] [id number] Jan, [facility] [id number] [place] [address] [id number] Jan, [facility] [id number] [place] [address] [id number] Jan, [facility] [id number] [place] [address] [id number] Dec, [facility] [id number] [place] [address] Oct, [facility] [id number] [place] [address] Oct, [facility] [id number] [place] [address] Sep, [facility] [address] [id number], [place] [id number] Sep, [facility] [id number] [place] [address] Sep, [facility] [place] [address] [id number] [place] [id number] Aug, [facility] [place] [facility] [address] [facility] [id number] [place] [address] Aug, [facility] [place] [facility] [address] [facility] [id number] [place] [address] Aug, [facility] [place] [address] [id number], [place] [id number] Aug, [facility] [place] [facility] [address] [facility] [id number] [place] [address] Aug, [facility] [place] [facility] [address] [facility] [id number] [place] [address] Aug, [facility] [place] [address] [facility] [id number], [place] [id number] Aug, [facility] [place] [facility] [id number] [address] Aug, [facility] [place] [address] [facility] [id number], [place] [id number] Jul, [facility] [place] [facility] [address]00565100[place] [address] Jul, [facility] [place] [facility] [address] [facility] [id number] [place] [address] Jul, [facility] [place] [address] [facility] [id number], [place] [id number] Jul, [facility] [place] [facility] [address] [facility] [id number] [place] [address] Jul, [facility] [place] [address] [facility] [id number], [place] [id number] Jul, [facility] [place] [facility] [address] [facility] [id number] [place] [address] Jul, [facility] [place] [address] [id number], [place] [id number] Jun, [facility] [place] [address] [facility] [id number], [place] [id number] Jun, [facility] [place] [facility] [address] [facility] [id number] [place] [address] Jun, [facility] [place] [facility] [address] [facility] [id number] [place] [address] Jun, [facility] [place] [address] [facility] [id number], [place] [id number] Jun, [facility] [place] [facility] [address] [facility] [id number] [place] [address] Jun, [facility] [place] [address] [facility] [id number], [place] [id number] May, [facility] [place] [facility] [address] [facility] [id number] [place] [address] May, [facility] [place] [facility] [address]00565100[place] [address] May, [facility] [place] [address] [facility] [id number], [place] [id number] Apr, [facility] [place] [facility] [address] [facility] [id number] [place] [address] Apr, [facility] [place] [address] [facility] [id number], [place] [id number] Apr, [facility] [place] [address] [facility] [id number], [place] [id number] Apr, [facility] [place] [facility] [address] [facility] [id number] [place] [address] Apr, [facility] [place] [facility] [address] [facility] [id number] [place] [address] Apr, [facility] [place] [address] [facility] [id number], [place] [id number] Mar, [facility] [place] [facility] [address] [facility] [id number] [place] [address] Mar, [facility] [place] [address] [facility] [id number], [place] [id number] Mar, [facility] [place] [facility] [address] [id number] [place] [address] Mar, [facility] [place] [address] [id number] [place] [id number] Mar, [facility] [place] [facility] [address] [facility] [id number] [place] [address] Mar, [facility] [place] [address] [id number] [place] [id number] Mar, [facility] [place] [facility] [address] [facility] [id number] [place] [address] Mar, [facility] [place] [address] [id number] [place] [id number] Mar, [facility] [place] [facility] [address] [facility] [id number] [place] [address] Mar, [facility] [place] [address] [facility] [id number], [place] 877100073 Feb, [facility] [place] [facility] [address] [facility] [id number] [place] [address] Feb, [facility] [place] [address] [facility] [id number], [place] [id number] Jan, [facility] [place] [facility] [address] [facility] [id number] [place] [address] Jan, [facility] [place] [address] [facility] [id number], [place] [id number] Jan, [facility] [place] [facility] [address] [facility] [id number] [place] [address] Jan, [facility] [place] [address] [facility] [id number], [place] [id number] Jan, [facility] [place] [facility] [address] [facility] [id number] [place] [address] Jan, [facility] [place] [facility] [address] [facility] [id number] [place] [address] Dec, [facility] [place] [facility] [address] [facility] [id number] [place] [address] Dec, [facility] [place] [address] [id number] [place] [id number] November, [facility] [place] [facility] [address] [id number] [place] [address] November, [facility] [place] [address] [id number] [place] [id number] November, [facility] [place] [facility] [address] [id number] [place] [address] November, [facility] [place] [address] [id number] [place] [id number] Oct, [facility] [place] [facility] [address] [id number] [place] [address] Oct, [facility] [place] [facility] [address] [facility] [id number] [place] [address] Oct, [facility] [place] [facility] [address] [facility] [id number] [place] [address] Oct, [facility] [place] [facility] [address] [facility] [id number] [place] [address] Oct, [facility] [place] [facility] [address] [facility] [id number] [place] [address] Oct, [facility] [place] [address] [id number], [place] [id number] Sep, [facility] [place] [address] [id number], [place] [id number] Sep, [facility] [place] [facility] [address] [id number] [place] [address] Sep, [facility] [place] [facility] [address] [id number] [place] [address] Sep, [facility] [place] [address] [id number] [place] 069460277 Sep, [facility] [place] [facility] [address] [facility] [id number] [place] [address] Sep, [facility] [place] [facility] [address] [id number] [address] Aug, [facility] [place] [facility] [address] [facility] [id number] [place] [address] Aug, [facility] [place] [address] [facility] [id number], [place] 181191701 Aug, [facility] [place] [address] [facility] [id number] [place] [id number] Aug, [facility] [place] [facility] [address] [facility] [id number] [place] [address] Aug, [facility] [place] [address] [facility] [id number] [place] [id number] Aug, [facility] [place] [facility] [address]00565100[place] [address] Aug, [facility] [place] [id number], [place] 069501623 Aug, [facility] [place] [facility] [address]00565100[place] [address] Aug, [facility] [place] [address] [id number], [place] [id number] Aug, [facility] [place] [facility] [address]00565100[place] [address] Aug, [facility] [place] [address] [id number], [place] 066239578 Aug, [facility] [place] [facility] [address]00565100[place] [address] Aug, [facility] [place] [facility] [address] [id number] [address] Jul, [facility] [place] [address] [facility] [id number], [place] 425152414 Jun, [facility] [place] [facility] [address] [id number] [address] Jun, [facility] [place] [facility] [address]00565100[place] [address] Jun, [facility] [place] [facility] [address] [id number] [place] [address] Jun, [facility] [place] [address] [id number], [place] [id number] Jun, [facility] [place] [facility] [address] [facility] [id number] [place] [address] Jun, [facility] [place] [facility] [address] [id number] [place] [address] Jun, [facility] [place] [address] [facility] [id number] [place] 509430144 Jun, [facility] [place] [facility] [address] [id number] [place] [address] Jun, [facility] [place] [facility] [address] [facility] [id number] [place] [address] May, [facility] [place] [address] [id number], [place] [id number] May, [facility] [place] [facility] [address] [facility] [id number] [place] [address] May, [facility] [place] [facility] [address] [facility] [id number] [place] [address] May, [facility] [place] [facility] [address] [facility] [id number] [place] [address] May, [facility] [place] [facility] [address] [facility] [id number] [place] [address] May, [facility] [place] [address] [facility] [id number], [place] [id number] May, [facility] [place] [facility] [address] [facility] [id number] [place] [address] May, [facility] [place] [address] [facility] [id number], [place] [id number] May, [facility] [place] [facility] [address] [facility] [id number] [place] [address] May, [facility] [place] [address] [facility] [id number], [place] [id number] Apr, [facility] [place] [facility] [address] [facility] [id number] [place] [address] Apr, [facility] [place] [facility] [address] [facility] [id number] [place] [address] Apr, [facility] [address] [facility] [id number], [place] [id number] Apr, [facility] [place] [facility] [address] [facility] [id number] [place] [address] Apr, [facility] [place] [facility] [address] [facility] [id number] [place] [address] Apr, [facility] [place] [id number], [place] 184432170 Apr, [facility] [place] [facility] [address]00565100[place] [address] Apr, [facility] [place] [facility] [address]00565100[place] [address] Apr, [facility] [place] [facility] [address]00565100[place] [address] Apr, [facility] [place] [address]00565100[place], [place] 185615494 Apr, [facility] [place] [facility] [address] [facility] [id number] [place] [address] Apr, [facility] [address] [facility] [id number], [place] 757086744 Apr, [facility] [place] [facility] [address] [facility] [id number] [place] [address] Apr, [facility] [address] [facility] [id number], [place] [id number] Apr, [facility] [place] [facility] [address] [facility] [id number] [place] [address] Apr, [facility] [place] [facility] [address] [facility] [id number] [place] [address] Apr, [facility] [address] [facility] [id number] [place] [address] Apr, [facility] [place] [address] [id number] [place] [id number] Apr, [facility] [address] [facility] [id number] [place] [address] Mar, [facility] [address] [facility] [id number] [place] [address] Mar, [facility] [place] [address] [id number] [place] 399602225 Mar, [facility] [place] [address] [id number] [place] [id number] Mar, [facility] [place] [address] [id number] [place] 748257348 Mar, [facility] [place] [address] [id number] [place] 437434946 Feb, [facility] [place] [address] [id number] [place] 741671079 Feb, [facility] [place] [address] [id number] [place] 189111490 Feb, [facility] [address] [facility] [id number] [place] [address] Feb, [facility] [place] [address] [id number] [place] 362986062 Feb, [facility] [place] [address] [id number] [place] 225121464 Feb, [facility] [place] [address] [id number] [place] 694964771 Feb, [facility] [place] [address] [id number] [place] 977043996 Feb, [facility] [place] [address] [id number] [place] 140734694 Feb, [facility] [place] [address] [id number] [place] 238559934 Jan, [facility] [place] [address] [id number] [place] 684894346 Jan, [facility] [place] [address] [id number] [place] 240064693 Jan, [facility] [place] [address] [id number] [place] [id number] Jan, [facility] [place] [address] [id number] [place] [id number] Jan, [facility] [id number] [place] [address] Jan, [facility] [place] [address] [id number] [place] [id number] Jan, [facility] [place] [address] [id number] [place] [id number] Jan, [facility] [place] [address] [id number] [place] [id number] Dec, [facility] [address] [id number] [place] [id number] November, [facility] [place] [address] [id number] [place] [id number] November, [facility] [place] [address] [id number] [place] [id number] November, [facility] [address] [id number] [place] [id number] November, [facility] [address] [id number] [place] [id number] November, [facility] [address] [id number] [place] [id number] November, [facility] [address] [id number] [place] [id number] Jul, [facility] [address] [id number] [place] [id number] Jul, [facility] [place] [address] [id number] [place] [id number] Jul, [facility] [address] [id number] [place] [id number] Jun, [facility] [address] [address] Jun, [facility] [address] [id number][place] [id number] May, [facility] [address] [facility] [id number] [place] [address] May, [facility] [address] [id number][place] [id number] May, [facility] [address] [facility] [id number] [place] [address] May, [facility] [address] [id number][place] [id number] May, [facility] [address] [facility] [id number] [place] [address] May, [facility] [address] [id number][place] [id number] Apr, [facility] [id number] [address] Apr, [facility] [address] [facility] [id number] [place] [address] Apr, [facility] [address] [id number][place] [id number] Apr, [facility] [address] [id number], [place] [id number] Apr, [facility] [address] [address] Apr, [facility] [address] [facility] [id number] [place] [address] Apr, [facility] [address] [id number], [place] [id number] Apr, [facility] [address] [facility] [id number] [place] [address] Apr, [facility] [address] [id number], [place] [id number] Apr, [facility] [address] [id number] [place] [address] [place] [id number] Apr, [facility] [address] [id number] [place] [id number] Mar, [facility] [address] [id number] [place] [id number] Feb, [facility] [address] [id number] [place] [id number] Jan, [facility] [place] [address] [id number] [place] [address] Dec, [facility] [address] [id number] [place] [id number] Dec, [facility] [place] [address] [id number] [place] [id number] Dec, [facility] [address] [id number] [place] [id number] Dec, [facility] [address] [id number] [place] [id number] Dec, [facility] [address] [id number] [place] [id number] November, [facility] [address] [id number] [place] [id number] November, [facility] [address] [id number] [place] [id number] November, [facility] [address] [facility] [id number] [place] [address] November, [facility] [address] [id number] [place] [id number] November, [facility] [address] [id number] [place] [id number] November, [facility] [place] [address] [id number] [place] [address] Oct, [facility] [address] [id number] [place] [id number] Oct, [facility] [address] [id number] [place] [id number] Oct, [facility] [place] [address] [id number] [place] [id number] Oct, [facility] [address] [id number] [place] [id number] Oct, [facility] [address] [id number] [place] [id number] Oct, [facility] [address] [id number] [place] [id number] Sep, [facility] [address] [id number] [place] [id number] Aug, [facility] [address] [id number] [place] [id number] Aug, [facility] [address] [id number] [place] [id number] Jul, [facility] [address] [facility] [id number] [place] [address] Jun, [facility] [address] [id number] [address] Jun, [facility] [address] [id number] [address] Jun, [facility] [place] [facility] [id number] [address] Jun, [facility] [place] [facility] [id number] [address] May, [facility] [place] [facility] [id number] [address] May, [facility] [place] [facility] [id number] [address] Apr, [facility] [place] [facility] [id number] [address] Apr, [facility] [place] [facility] [id number] [address] Apr, [facility] [place] [facility] [id number] [address] Feb, [facility] [place] [facility] [id number] [address] 15 Aug, 2010 [facility] [address] [id number] [place] [address] 18 Jul, 2010 [facility] [place] [facility] [address] [id number] [place] [address] 30 Jun, 2010 [facility] [address] [id number] [place] [address] 29 May, 2010 [facility] [place] [facility] [address] [id number] [place] [address] May, [facility] [address] [id number] [place] [address], [place] [address] May, [facility] [address] [facility] [id number] [place] [address] May, [facility] [address] [facility] [id number] [place] [address] May, [facility] [address] [id number] [place] [address] 16 Aug, 2009 [facility] [address] [facility] [id number] [place] [address] Jun, [facility] [address] [facility] [id number] [place] [address] Jun, [facility] [place] [facility] [address] [facility] [id number] [place] [address] Jun, [facility] [address] [id number] [place] [address] 24 May, 2009 [facility] [place] [facility] [address] [id number] [place] [address] 28 Apr, 2009 [facility] [place] [facility] [address] [facility] [id number] [place] [address] Apr, [facility] [address] [facility] [id number] [place] [address] Apr, [facility] [address] [facility] [id number] [place] [address] Jan, [facility] [address] [facility] [id number] [place] [address] Oct, [facility] [address] [facility] [id number] [place] [address] May, [facility] [address] [facility] [id number] [place] [address] May, IMMUNIZATIONS No Known Immunizations SOCIAL HISTORY Never Assessed REASON FOR VISIT Refill request PLAN OF CARE VITAL SIGNS MEDICATIONS Medication Instructions Dosage Frequency Start Date End Date Duration Status Verapamil HCl ER 240 MG Orally Once a day in the morning 1 tablet Active RESULTS No Results PROCEDURES [...] Dialysis Ruthy Reveles 2012 -Dr. Simon now [facility] Medical History Colonoscopy (polyps 2 [...]
--- OUTSIDE RECORDS SUMMARY | 2018-12-28 18:12 | XMS REPORT ---
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 Name Role Phone CHELSY VILLAFANA Unavailable PROBLEMS Type Condition ICD9-CM Code EEF39-UC Code Onset Dates Condition Status SNOMED Code Problem Chronic kidney disease, stage 4 (severe) N18.4 Active 069319569 Problem Psoriasis of scalp L40.9 Active 371179163 Problem Type 2 diabetes mellitus with hyperglycemia E11.65 Active 443359449346732 Problem Fibromyalgia M79.7 Active 889604700 Problem History of DVT (deep vein thrombosis) Z86.718 Active 608513427 Problem Carpal tunnel syndrome, bilateral G56.03 Active 96990587094475360 Problem Type 2 diabetes mellitus with other diabetic kidney complication E11.29 Active 678555801 Problem Anemia in other chronic diseases classified elsewhere D63.8 Active 444392904 Problem assisted 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 Active 830593622 Problem Paresthesia of right upper extremity R20.2 Active 70094602 Problem Bilateral lower extremity edema R60.0 Active 692346400 Problem Supplemental oxygen dependent Z99.81 Active 591206106366 Problem Sleep apnea in adult G47.33 Active 43068840 Problem Chronic pain syndrome G89.4 Active 605419521 Problem 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 Active 048783697 Problem Essential hypertension I10 Active 27550409 Problem Gastroesophageal reflux disease without esophagitis K21.9 Active 399835800 Problem Chronic obstructive pulmonary disease, unspecified COPD type J44.9 Active 64835761 Problem 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 Active 812779085898252 Problem Primary insomnia F51.01 Active 9157598 Problem Oxygen desaturation during sleep G47.34 Active 079861227 Problem Right carpal tunnel syndrome G56.01 Active 064003773276708 Problem Diabetic polyneuropathy associated with type 2 diabetes mellitus E11.42 Active 94517954 Problem Depression, unspecified depression type F32.9 Active 33067606 ALLERGIES No Information ENCOUNTERS Encounter Location Date Diagnosis [facility] [address] [address] Feb, [facility] [address] [address] Feb, [facility] [address] [address] Jan, [facility] [address] [address] Jan, [facility] [address] [address] Jan, [address] [id number] Jan, [facility] [address] [address] Jan, [facility] [address] [address] Jan, [facility] [address] [address] Jan, Essential hypertension I10 [facility] [address] [address] Jan, Chronic obstructive pulmonary disease, unspecified COPD type J44.9 [facility] [address] [address] Jan, [facility] [address] [address] Jan, [facility] [address] [address] Jan, Type 2 diabetes mellitus with other diabetic kidney complication E11.29 ; Anemia in other chronic diseases classified elsewhere D63.8 ; Chronic obstructive pulmonary disease, unspecified COPD type J44.9 and BMI 60.0-69.9, adult Z68.44 [facility] [id number] [address] Jan, [facility] [id number] [place] [address] Jan, [facility] [id number] [id number] Jan, [facility] [id number] [place] [id number] Dec, [facility] [id number] [place] [id number] Dec, [facility] [id number] [place] [id number] Dec, Essential hypertension I10 ; Type 2 diabetes mellitus with other diabetic kidney complication E11.29 ; Depression, unspecified depression type F32.9 ; Supplemental oxygen dependent Z99.81 ; Chronic pain syndrome G89.4 ; Fibromyalgia M79.7 ; Carpal tunnel syndrome, bilateral G56.03 and Chronic kidney disease, stage 4 (severe) N18.4 [facility] [address] [place] [address] Dec, Essential hypertension I10 [facility] [id number] [place] [address] November, Type 2 diabetes mellitus with other diabetic kidney complication E11.29 [facility] [id number] [address] November, Chronic pain syndrome G89.4 [facility] [address] [address] November, [facility] [id number] [place] [address] November, [facility] [id number] [place] [address] November, [facility] [id number] [address] Oct, Type 2 diabetes mellitus with other diabetic kidney complication E11.29 [facility] [address] [address] Oct, Primary insomnia F51.01 [place] [address] [id number] [id number] Oct, Bilateral lower extremity edema R60.0 [facility] [address] [place] [address] Oct, [facility] [id number] [place] [address] Sep, Type 2 diabetes mellitus with other diabetic kidney complication E11.29 and Chronic obstructive pulmonary disease, unspecified COPD type J44.9 [place] [address] [place] [address] 15 Aug, 2017 Type 2 diabetes mellitus with other diabetic kidney complication E11.29 [address] [place] [address] 12 Aug, 2017 Gastroesophageal reflux disease without esophagitis K21.9 ; assisted current use of anticoagulant Z79.01 ; Chronic pain syndrome G89.4 ; Essential hypertension I10 and Type 2 diabetes mellitus with other diabetic kidney complication E11.29 [facility] [address] [address] 08 Aug, 2017 Chronic pain syndrome G89.4 [facility] [address] [place] [address] Aug, Type 2 diabetes mellitus with other diabetic kidney complication E11.29 [facility] [address] [address] Jul, Diabetic polyneuropathy associated with type 2 diabetes mellitus E11.42 [facility] [address] [place] [address] Jul, Primary insomnia F51.01 [facility] [address] [address] Jul, [facility] [address] [address] Jul, Type 2 diabetes mellitus with other diabetic kidney complication E11.29 and Chronic obstructive pulmonary disease, unspecified COPD type J44.9 [facility] [address] [place] [address] Jul, Type 2 diabetes mellitus with other diabetic kidney complication E11.29 [facility] [id number] [place] [address] Jun, Type 2 diabetes mellitus with other diabetic kidney complication E11.29 [facility] [id number] [place] [address] 27 Jun, 2017 [place] [id number] [place] [address] Jun, Chronic obstructive pulmonary disease, unspecified COPD type J44.9 [facility] [id number] [place] [address] May, Type 2 diabetes mellitus with other diabetic kidney complication E11.29 [facility] [id number] [place] [address] May, 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 and Essential hypertension I10 [address] [place] [address] May, Anemia in other chronic diseases classified elsewhere D63.8 ; Chronic obstructive pulmonary disease, unspecified COPD type J44.9 ; Oxygen desaturation during sleep G47.34 ; Sleep apnea in adult G47.33 and Supplemental oxygen dependent Z99.[address] [place] [address] May, Type 2 diabetes mellitus with other [...] legs R60.0 and Supplemental oxygen dependent Z99.81 [facility] [id number] [place] [address] May, [facility] [id number] [place] [address] May, Essential hypertension I10 and Gastroesophageal reflux disease without esophagitis K21.9 [place] [address] [address] May, [place] [address] [address] May, Type 2 diabetes mellitus with other diabetic kidney complication E11.29 and 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 [facility] [id number] [place] [address] Apr, Chronic pain syndrome G89.4 and Essential hypertension I10 [facility] [id number] [place] [address] Apr, Type 2 diabetes mellitus with other diabetic kidney complication E11.29 [facility] [id number] [place] [address] Apr, Type 2 diabetes mellitus with other diabetic kidney complication E11.29 [facility] [id number] [place] [address] Apr, Essential hypertension I10 [facility] [id number] [place] [address] Apr, Gastroesophageal reflux disease without esophagitis K21.9 [facility] [id number] [place] [address] Apr, Type 2 diabetes mellitus with other diabetic kidney complication E11.29 [facility] [id number] [place] [address] Apr, Type 2 diabetes mellitus with other diabetic kidney complication E11.29 and 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 [facility] [address] [address] 27 Mar, 2017 Encounter for immunization Z23 and Preoperative examination Z01.818 [facility] [id number] [place] [address] Mar, [facility] [id number] [place] [address] Mar, Type 2 diabetes mellitus with other diabetic kidney complication E11.29 [facility] [id number] [place] [address] 08 Mar, 2017 Type 2 diabetes mellitus with other diabetic kidney complication E11.29 [facility] [id number] [place] [address] Mar, Gastroesophageal reflux disease without esophagitis K21.9 [facility] [id number] [place] [address] Mar, Essential hypertension I10 [facility] [id number] [place] [address] Feb, 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 [facility] [id number] [place] [address] Feb, Type 2 diabetes mellitus with other diabetic kidney complication E11.29 [facility] [id number] [place] [address] Feb, Type 2 diabetes mellitus with other diabetic kidney complication E11.29 [facility] [id number] [place] [address] Feb, Type 2 diabetes mellitus with other diabetic kidney complication E11.29 [facility] [id number] [place] [address] Feb, Gastroesophageal reflux disease without esophagitis K21.9 [facility] [id number] [place] [address] 03 Aug, 2017 Type 2 diabetes mellitus with other diabetic kidney complication E11.29 [facility] [address] [address] Feb, assisted current use of anticoagulant Z79.01 [facility] [address] [address] Jan, Type 2 diabetes mellitus with other diabetic kidney complication E11.29 [facility] [id number] [place] [address] Jan, Type 2 diabetes mellitus with other diabetic kidney complication E11.29 [facility] [address] [address] Jan, Chronic pain syndrome G89.4 [facility] [id number] [address] Jan, [facility] [id number] [place] [address] Jan, [facility] [address] [address] Jan, [facility] [id number] [place] [address] Jan, [facility] [address] [address] Jan, Primary insomnia F51.01 ; Type 2 diabetes mellitus with other diabetic kidney complication E11.29 ; Chronic pain syndrome G89.4 and Essential hypertension I10 [facility] [address] [address] Jan, Primary insomnia F51.01 [facility] [id number] [place] [address] Jan, Type 2 diabetes mellitus with other diabetic kidney complication E11.29 [facility] [address] [address] Jan, [facility] [address] [place] [address] Jan, 2017 Chronic obstructive pulmonary disease, unspecified COPD type J44.9 [facility] [id number] [place] [address] Jan, Essential hypertension I10 ; Type 2 diabetes mellitus with other diabetic kidney complication E11.29 ; Chronic obstructive pulmonary disease, unspecified COPD type J44.9 ; Chronic kidney disease, stage 4 (severe) N18.4 ; Right carpal tunnel syndrome G56.01 ; 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 ; [employer] customer service (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 and Diabetic polyneuropathy associated with type 2 diabetes mellitus E11.42 [facility] [id number] [place] [address] Jan, Gastroesophageal reflux disease without esophagitis K21.9 [facility] [id number] [place] [address] Dec, [facility] [id number] [place] [address] Dec, [facility] [id number] [place] [address] Dec, assisted current use of anticoagulant Z79.01 ; Chronic pain syndrome G89.4 and Essential hypertension I10 [facility] [address] [address] Dec, [facility] [id number] [place] [address] Dec, Type 2 diabetes mellitus with other diabetic kidney complication E11.29 [facility] [address] [address] Dec, [facility] [id number] [place] [address] Dec, Gastroesophageal reflux disease without esophagitis K21.9 [facility] [id number] [place] [address] 24 May, 2017 Type 2 diabetes mellitus with other diabetic kidney complication E11.29 [facility] [address] [address] November, [facility] [address] [place] [address] November, Type 2 diabetes mellitus with other diabetic kidney complication E11.29 [facility] [address] [place] [address] November, [facility] [address] [place] [address] November, Type 2 diabetes mellitus with other diabetic kidney complication E11.29 [facility] [id number] [place] [address] November, [facility] [id number] [place] [address] Oct, Essential hypertension I10 [facility] [id number] [place] [address] Oct, Psoriasis of scalp L40.9 [facility] [id number] [place] [address] Oct, Essential hypertension I10 and Chronic pain syndrome G89.4 [facility] [address] [place] [address] Oct, [facility] [address] [place] [address] Sep, Type 2 diabetes mellitus with other diabetic kidney complication E11.29 [facility] [address] [address] Sep, [facility] [id number] [place] [address] Sep, Type 2 diabetes mellitus with other diabetic kidney complication E11.29 [facility] [address] [address] Sep, Type 2 diabetes mellitus with other diabetic kidney complication E11.29 [facility] [id number] [place] [address] 09 Sep, 2017 Type 2 diabetes mellitus [...] extremity R20.2 and Psoriasis of scalp L40.9 [place] [id number] [place] [address] Sep, [address] [address] Aug, Essential hypertension I10 [place] [facility] [address] [address] Aug, History of DVT (deep vein thrombosis) Z86.718 [facility] [id number] [place] [address] Aug, [facility] [id number] [place] [address] Jul, [facility] [facility] [id number] [place] [address] Jul, [facility] [id number] [place] [address] Jul, 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 ; Chronic pain syndrome G89.4 and Chronic kidney disease, stage 4 (severe) N18.4 [facility] [id number] [place] [address] Jul, [facility] [facility] [address] [address] Jul, [facility] [facility] [address] [address] Jul, [facility] [address] [place] [address] Jul, [facility] [address] [address] Jul, [facility] [id number] [place] [address] Jul, Type 2 diabetes mellitus with other diabetic kidney complication E11.29 [facility] [id number] [place] [address] Jul, History of DVT (deep vein thrombosis) Z86.718 [facility] [address] [place] [address] Jun, [facility] [id number] [place] [address] Jun, History of DVT (deep vein thrombosis) Z86.718 [place] [id number] [place] [address] 15 Jun, 2016 Post traumatic stress disorder (PTSD) F43.10 [address] [address] 07 Jun, 2016 Type 2 diabetes mellitus [...] pain M79.641 and Right wrist pain M25.531 [facility] [id number] [place] [address] May, [facility] [id number] [place] [address] May, [facility] [address] [address] May, [facility] [id number] [place] [address] May, [facility] [id number] [place] [address] May, Anemia in other chronic diseases classified elsewhere D63.8 [facility] [address] [address] May, [facility] [id number] [place] [address] Apr, [facility] [id number] [place] [address] 27 Mar, 2016 Dermatofibroma D23.9 [facility] [id number] [place] [address] 20 Mar, 2016 [facility] [id number] [place] [address] 14 Mar, 2016 Chronic pain syndrome G89.4 [facility] [id number] [place] [address] 09 Mar, 2016 [facility] [id number] [place] [address] 07 Mar, 2016 [facility] [id number] [place] [address] 06 Mar, 2016 [facility] [address] [place] [address] Feb, [facility] [address] [address] Feb, [facility] [address] [address] Feb, [facility] [id number] [place] [address] Feb, [facility] [id number] [place] [address] Feb, [facility] [id number] [place] [address] Feb, [facility] [id number] [place] [address] Feb, Type 2 diabetes mellitus with other [...] Renal failure, chronic, stage 4 (severe) N18.4 [facility] [address] [address] Feb, Skin tags, multiple acquired L91.8 [facility] [id number] [place] [address] Jan, [facility] [address] [place] [id number] Jan, Dental examination Z01.20 [facility] [id number] [place] [address] Jan, [facility] [id number] [place] [address] Jan, Type 2 diabetes mellitus with other [...] Renal failure, chronic, stage 4 (severe) N18.4 [place] [id number] [place] [address] Dec, Diabetes type 2, uncontrolled E11.65 [facility] [id number] [place] [address] Dec, [place] [id number] [place] [address] Dec, Type 2 diabetes mellitus with other diabetic kidney complication E11.29 ; Diabetic polyneuropathy associated with type 2 diabetes mellitus E11.42 ; Iron deficiency anemia due to chronic blood loss D50.0 ; Chronic obstructive pulmonary disease, unspecified COPD type J44.9 ; 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 ; History of DVT (deep vein thrombosis) Z86.718 ; Chronic pain syndrome G89.4 ; Oxygen desaturation during sleep G47.34 ; Sleep apnea in adult G47.33 ; Gastroesophageal reflux disease without esophagitis K21.9 ; Essential hypertension I10 ; Primary insomnia F51.01 and Depression, unspecified depression type F32.9 [facility] [address] [id number] [place] [id number] Dec, Dental caries K02.9 [facility] [address] [id number] [place] [address] [id number] Dec, [facility] [address] [id number] [place] [id number] Dec, Dental examination Z01.20 [facility] [address] [id number] [place] [id number] November, Dental examination Z01.20 and Dental caries K02.9 [facility] [address] [id number][place] [id number] Oct, [facility] [address] [id number] [place] [address] [id number] Oct, [facility] [address] [id number] [place] [address] [id number] Sep, [facility] [address] [id number] [place] [address] [id number] Sep, [facility] [address] [id number] [place] [address] [id number] Sep, [facility] [address] [id number] [place] [address] [id number] Sep, Other chronic pain 338.29 [facility] [address] [id number] [place] [address] [id number] Aug, Diabetes type 2, uncontrolled E11.65 and Morbid obesity due to excess calories E66.01 [facility] [address] [id number] [place] [address] [id number] Aug, Hair loss L65.9 [facility] [address] [id number], [place] [id number] Aug, [facility] [address] [id number] [place] [address] [id number] Jul, [facility] [address] [id number], [place] [id number] Jul, [facility] [address] [id number] [place] [address] [id number] Jun, [facility] [address] [id number] [place] [address] [id number] Jun, Hair loss L65.9 and Disorder of the skin and subcutaneous tissue, unspecified L98.9 [facility] [id number] [place] [address] [id number] May, Type 2 diabetes mellitus with other diabetic kidney complication E11.29 ; Type 2 diabetes mellitus with hyperglycemia E11.65 ; Morbid obesity due to excess calories E66.01 and Essential hypertension I10 [facility] [id number] [place] [address] [id number] May, Diabetes type 2, uncontrolled E11.65 ; Encounter for immunization Z23 and Morbid obesity due to excess calories E66.01 [facility] [id number] [place] [address] [id number] May, [facility] [address] [address] Apr, [address] [id number] Apr, Hyperglycemia R73.[address] [id number] Apr, [address] [id number] Apr, Depression F32.9 ; Encounter for immunization Z23 ; Hyperglycemia R73.9 and Anemia in other chronic diseases classified elsewhere D63.8 [facility] [id number] [place] [address] [id number] Mar, [id number] [place] [address] [id number] Feb, Positive occult stool blood test 792.1 [id number] [place] [address] [id number] Feb, Depression 311 ; Other chronic pain 338.29 and Diabetes with renal manifestations, type II or unspecified type, not stated as uncontrolled 250.40 [facility] [id number] [place] [address] Feb, Occult blood in stools 792.1 [id number] [place] [address] [id number] Feb, Anemia 285.9 ; Occult blood positive stool 792.1 ; Unspecified essential hypertension 401.9 and Other chronic pain 338.29 [facility] [id number], [place] [id number] Feb, [facility] [id number] [place] [address] [id number] Feb, Anemia 285.9 [facility] [id number] [place] [address] [id number] Feb, [facility] [id number] [place] [address] [id number] Feb, [facility] [id number] [place] [address] [id number] Feb, Diabetes with renal manifestations, type II or unspecified type, not stated as uncontrolled 250.40 ; Other chronic pain 338.29 ; Unspecified essential hypertension 401.9 ; Anemia 285.9 and Depression 311 [facility] [id number] [place] [address] [id number] Jan, [facility] [id number] [place] [address] [id number] Jan, Anemia 285.9 and Follow up V67.9 [facility] [id number] [place] [address] [id number] Jan, [facility] [id number] [place] [address] [id number] Jan, [facility] [id number] [place] [address] [id number] Jan, [facility] [id number] [place] [address] [id number] Dec, [facility] [id number] [place] [address] Oct, [facility] [id number] [place] [address] Oct, [facility] [id number] [place] [address] Sep, [facility] [address] [id number], [place] [id number] Sep, [facility] [id number] [place] [address] Sep, [facility] [place] [address] [id number] [place] [id number] Aug, [facility] [place] [facility] [address] [facility] [id number] [place] [address] Aug, [facility] [place] [facility] [address] [facility] [id number] [place] [address] Aug, [facility] [place] [address] [id number], [place] [id number] Aug, [facility] [place] [facility] [address] [facility] [id number] [place] [address] Aug, [facility] [place] [facility] [address] [facility] [id number] [place] [address] Aug, [facility] [place] [address] [facility] [id number][place] [id number] Aug, [facility] [place] [facility] [address]00565100[place] [address] Aug, [facility] [place] [address] [facility] [id number], [place] [id number] Jul, [facility] [place] [facility] [address]00565100[place] [address] Jul, [facility] [place] [facility] [address] [facility] [id number] [place] [address] Jul, [facility] [place] [address] [facility] [id number], [place] [id number] Jul, [facility] [place] [facility] [address] [facility] [id number] [address] Jul, [facility] [place] [address] [facility] [id number], [place] [id number] Jul, [facility] [place] [facility] [address] [facility] [id number] [place] [address] Jul, [facility] [place] [address] [id number], [place] [id number] Jun, [facility] [place] [address] [facility] [id number], [place] [id number] Jun, [facility] [place] [facility] [address] [facility] [id number] [address] Jun, [facility] [place] [facility] [address] [facility] [id number] [address] Jun, [facility] [place] [address] [facility] [id number], [place] [id number] Jun, [facility] [place] [facility] [address] [facility] [id number] [place] [address] Jun, [facility] [place] [address] [facility] [id number], [place] [id number] May, [facility] [place] [facility] [address] [facility] [id number] [place] [address] May, [facility] [place] [facility] [address]00565100[place] [address] May, [facility] [place] [address] [facility] [id number], [place] [id number] Apr, [facility] [place] [facility] [address] [facility] [id number] [place] [address] Apr, [facility] [place] [address] [facility] [facility] [id number], [place] [id number] Apr, [facility] [place] [address] [facility] [facility] [id number], [place] [id number] Apr, [facility] [place] [facility] [address] [facility] [id number] [place] [address] Apr, [facility] [place] [facility] [address] [facility] [id number] [place] [address] Apr, [facility] [place] [address] [facility] [id number], [place] [id number] Mar, [facility] [place] [facility] [address] [facility] [id number] [place] [address] Mar, [facility] [place] [address] [facility] [id number], [place] [id number] Mar, [facility] [place] [facility] [address] [id number] [address] Mar, [facility] [place] [address] [id number] [place] [id number] Mar, [facility] [place] [facility] [address] [facility] [id number] [place] [address] Mar, [facility] [place] [address] [id number] [place] [id number] Mar, [facility] [place] [facility] [address] [facility] [id number] [place] [address] Mar, [facility] [place] [address] [id number] [place] 1823[address]186 Mar, [facility] [place] [facility] [address] [facility] [id number] [place] [address] Mar, [facility] [place] [address] [facility] [id number], [place] [id number] Feb, [facility] [place] [facility] [address] [facility] [id number] [place] [address] Feb, [facility] [place] [address] [facility] [id number], [place] 037330076 Jan, [facility] [place] [facility] [address] [facility] [id number] [place] [address] Jan, [facility] [place] [address] [facility] [id number], [place] [id number] Jan, [facility] [place] [facility] [address] [facility] [id number] [place] [address] Jan, [facility] [place] [address] [facility] [id number], [place] [id number] Jan, [facility] [place] [facility] [address] [facility] [id number] [place] [address] Jan, [facility] [place] [facility] [address] [facility] [id number] [place] [address] Dec, [facility] [place] [facility] [address] [facility] [id number] [place] [address] Dec, [facility] [place] [address] [id number] [place] [id number] November, [facility] [place] [facility] [address] [id number] [place] [address] November, [facility] [place] [address] [id number] [place] 30[address] November, [facility] [place] [facility] [address] [id number] [place] [address] November, [facility] [place] [address] [id number] [place] 0188[address] Oct, [facility] [place] [facility] [address] [id number] [place] [address] Oct, [facility] [place] [facility] [address] [facility] [id number] [place] [address] Oct, [facility] [place] [facility] [address] [facility] [id number] [place] [address] Oct, [facility] [place] [facility] [address] [facility] [id number] [place] [address] Oct, [facility] [place] [facility] [address] [facility] [id number] [place] [address] Oct, [facility] [place] [address] [id number], [place] 819436150 Sep, [facility] [place] [address] [id number], [place] [id number] Sep, [facility] [place] [facility] [address] [id number] [place] [address] Sep, [facility] [place] [facility] [address] [id number] [place] [address] Sep, [facility] [place] [address] [id number] [place] [id number] Sep, [facility] [place] [facility] [address] [facility] [id number] [place] [address] Sep, [facility] [place] [facility] [address] [id number] [address] Aug, [facility] [place] [facility] [address] [facility] [id number] [place] [address] Aug, [facility] [place] [address] [facility] [id number], [place] 716511462 Aug, [facility] [place] [address] [facility] [id number] [place] 914633454 Aug, [facility] [place] [facility] [address] [facility] [id number] [place] [address] Aug, [facility] [place] [address] [facility] [id number] [place] 805949131 Aug, [facility] [place] [facility] [address]00565100[place] [address] Aug, [facility] [place] [id number], [place] [id number] Aug, [facility] [place] [facility] [address]00565100[place] [address] Aug, [facility] [place] [address] [id number], [place] 239660389 Aug, [facility] [place] [facility] [address]00565100[place] [address] Aug, [facility] [place] [address] [id number], [place] 653106831 Aug, [facility] [place] [facility] [address]00565100[place] [address] Aug, [facility] [place] [facility] [address] [id number] [address] Jul, [facility] [place] [address] [facility] [id number], [place] 202161581 Jun, [facility] [place] [facility] [address] [id number] [address] Jun, [facility] [place] [facility] [address]00565100[place] [address] Jun, [facility] [place] [facility] [address] [id number] [place] [address] Jun, [facility] [place] [address] [id number], [place] 012652795 Jun, [facility] [place] [facility] [address] [facility] [id number] [place] [address] Jun, [facility] [place] [facility] [address] [id number] [place] [address] Jun, [facility] [place] [address] [facility] [id number] [place] [id number] Jun, [facility] [place] [facility] [address] [id number] [place] [address] Jun, [facility] [place] [facility] [address] [facility] [id number] [place] [address] May, [facility] [place] [address] [id number], [place] 669184617 May, [facility] [place] [facility] [address] [facility] [id number] [place] [address] May, [facility] [place] [facility] [address] [facility] [id number] [place] [address] May, [facility] [place] [facility] [address] [facility] [id number] [place] [address] May, [facility] [place] [facility] [address] [facility] [id number] [place] [address] May, [facility] [place] [address] [facility] [id number], [place] 957207318 May, [facility] [place] [facility] [address] [facility] [id number] [place] [address] May, [facility] [place] [address] [facility] [id number], [place] 727747985 May, [facility] [place] [facility] [address] [facility] [id number] [place] [address] May, [facility] [place] [address] [facility] [id number], [place] 926977395 Apr, [facility] [place] [facility] [address] [facility] [id number] [place] [address] Apr, [facility] [place] [facility] [address] [facility] [id number] [place] [address] Apr, [facility] [address] [facility] [id number], [place] [id number] Apr, [facility] [place] [facility] [address] [facility] [id number] [place] [address] Apr, [facility] [place] [facility] [address] [facility] [id number] [place] [address] Apr, [facility] [place] [id number], [place] 099181146 Apr, [facility] [place] [facility] [address]00565100[place] [address] Apr, [facility] [place] [facility] [address]00565100[place] [address] Apr, [facility] [place] [facility] [address]00565100[place] [address] Apr, [facility] [place] [address]00565100[place] 8110[address] Apr, [facility] [place] [facility] [address] [facility] [id number] [place] [address] Apr, [facility] [address] [facility] [id number], [place] 292452855 Apr, [facility] [place] [facility] [address] [facility] [id number] [place] [address] Apr, [facility] [address] [facility] [id number], [place] 439231777 Apr, [facility] [place] [facility] [address] [facility] [id number] [place] [address] Apr, [facility] [place] [facility] [address] [facility] [id number] [place] [address] Apr, [facility] [address] [facility] [id number] [place] [address] Apr, [facility] [place] [address] [id number] [place] [address]32644960 Apr, [facility] [address] [facility] [id number] [place] [address] Mar, [facility] [address] [facility] [id number] [place] [address] Mar, [facility] [place] [address] [id number] [place] 376325224 Mar, [facility] [place] [address] [id number] [place] 023859139 Mar, [facility] [place] [address] [id number] [place] 373089338 Mar, [facility] [place] [address] [id number] [place] 444959239 Feb, [facility] [place] [address] [id number] [place] 627607485 Feb, [facility] [place] [address] [id number] [place] 226886192 Feb, [facility] [address] [facility] [id number] [place] [address] Feb, [facility] [place] [address] [id number] [place] 942751673 Feb, [facility] [place] [address] [id number] [place] 468948621 Feb, [facility] [place] [address] [id number] [place] 835394366 Feb, [facility] [place] [address] [id number] [place] 861511585 Feb, [facility] [place] [address] [id number] [place] 825457480 Feb, [facility] [place] [address] [id number] [place] 328340887 Jan, [facility] [place] [address] [id number] [place] 9978069[place] Jan, [facility] [place] [address] [id number] [place] 585473649 Jan, [facility] [place] [address] [id number] [place] 402841783 Jan, [facility] [place] [address] [id number] [place] 459495333 Jan, [facility] [id number] [place] [address] Jan, [facility] [place] [address] [id number] [place] 899243386 Jan, [facility] [place] [address] [id number] [place] 160682036 Jan, [facility] [place] [address] [id number] [place] 174975[address] Dec, [facility] [place] [address] [id number] [place] 760551826 November, [facility] [place] [address] [id number] [place] 298903995 November, [facility] [place] [address] [id number] [place] 134171203 November, [facility] [place] [address] [id number] [place] 618499772 November, [facility] [place] [address] [id number] [place] 666554324 November, [facility] [place] [address] [id number] [place] 479772153 November, [facility] [place] [address] [id number] [place] 698791953 Jul, [facility] [place] [address] [id number] [place] 773551234 Jul, [facility] [place] [address] [id number] [place] 441749706 Jul, [facility] [place] [address] [id number] [place] 716591364 Jun, [facility] [address] [address] Jun, [facility] [place] [address] [id number][place] [id number] May, [facility] [place] [facility] [address] [facility] [id number] [place] [address] May, [facility] [place] [address] [id number][place] [id number] May, [facility] [place] [facility] [address] [facility] [id number] [place] [address] May, [facility] [place] [address] [id number][place] [id number] May, [facility] [place] [facility] [address] [facility] [id number] [place] [address] May, [facility] [place] [address] [id number][place] [id number] Apr, [facility] [place] [facility] [address] [address] Apr, [facility] [place] [facility] [address] [facility] [id number] [place] [address] Apr, [facility] [place] [address] [id number][place] [id number] Apr, [facility] [place] [address] [id number][place] [id number] Apr, [facility] [place] [facility] [address] [address] Apr, [facility] [place] [facility] [address] [facility] [id number] [place] [address] Apr, [facility] [place] [address] [id number][place] [id number] Apr, [facility] [place] [facility] [address] [facility] [id number] [place] [address] Apr, [facility] [place] [address] [id number][place] [id number] Apr, [facility] [place] [address] [id number] [place] [address] [place] [id number] Apr, [facility] [place] [address] [id number] [place] [id number] Mar, [facility] [place] [address] [id number] [place] [id number] Feb, [facility] [place] [address] [id number] [place] [id number] Jan, [facility] [place] [address] [id number] [place] [id number] Dec, [facility] [place] [address] [id number] [place] [id number] Dec, [facility] [place] [address] [id number] [place] [address] Dec, [facility] [place] [address] [id number] [place] [id number] Dec, [facility] [place] [address] [id number] [place] [id number] Dec, [facility] [place] [address] [id number] [place] [id number] November, [facility] [place] [address] [id number] [place] [id number] November, [facility] [place] [address] [id number] [place] [id number] November, [facility] [address] [facility] [id number] [place] [address] November, [facility] [place] [address] [id number] [place] [id number] November, [facility] [place] [address] [id number] [place] [id number] November, [facility] [place] [address] [id number] [place] [id number] Oct, [facility] [place] [address] [id number] [place] [id number] Oct, [facility] [place] [address] [id number] [place] [id number] Oct, [facility] [place] [address] [id number] [place] [id number] Oct, [facility] [place] [address] [id number] [place] [id number] Oct, [facility] [place] [address] [id number] [place] [id number] Oct, [facility] [place] [address] [id number] [place] [address] Sep, [facility] [address] [id number] [place] [address] Aug, [facility] [place] [address] [id number] [place] [id number] Aug, [facility] [address] [id number] [place] [id number] Jul, [facility] [place] [facility] [address] [facility] [id number] [place] [address] Jun, [facility] [place] [facility] [address] [id number] [address] Jun, [facility] [place] [facility] [id number] [address] Jun, [facility] [place] [facility] [id number] [address] Jun, [facility] [place] [facility] [id number] [address] May, [facility] [place] [facility] [address] [address] May, [facility] [place] [facility] [id number] [address] Apr, [facility] [place] [facility] [address] [id number] [address] Apr, [facility] [place] [facility] [id number] [address] Apr, [facility] [place] [facility] [address] [address] Feb, [facility] [place] [facility] [address] [id number] [place] [address] 15 Aug, 2010 [facility] [address] [id number] [place] [address] 18 Jul, 2010 [facility] [place] [facility] [address] [id number] [place] [address] 30 Jun, 2010 [facility] [address] [address] [id number] [place] [address] 29 May, 2010 [facility] [place] [facility] [address] [id number] [place] [address] May, [facility] [address] [id number] [place] [address], [place] [address] May, [facility] [address] [facility] [id number] [place] [address] May, [facility] [address] [facility] [id number] [place] [address] May, [facility] [address] [id number] [place] [address] 16 Aug, 2009 [facility] [address] [facility] [id number] [place] [address] Jun, [facility] [address] [facility] [id number] [place] [address] Jun, [facility] [place] [facility] [address] [facility] [id number] [place] [address] Jun, [facility] [address] [id number] [address] 24 May, 2009 [facility] [place] [facility] [address] [id number] [place] [address] 28 Apr, 2009 [facility] [place] [facility] [address] [facility] [id number] [place] [address] Apr, [facility] [address] [facility] [id number] [address] Apr, [facility] [address] [facility] [id number] [place] [address] Jan, [facility] [address] [id number] [address] Oct, [facility] [address] [facility] [id number] [place] [address] May, [facility] [address] [id number] [address] May, IMMUNIZATIONS No Known Immunizations SOCIAL HISTORY Never Assessed REASON FOR VISIT diabetic supply PLAN OF CARE VITAL SIGNS MEDICATIONS Medication Instructions Dosage Frequency Start Date End Date Duration Status Test strips ... True Test Active RESULTS [...] Dialysis Ruthy Reveles 2012 -Dr. Simon now [facility] Medical History Colonoscopy (polyps 2 ) [...]
--- NOTE | 2018-12-28 18:13 | Diagnostic Imaging Report ---
PATIENT HISTORY: Fall, left ankle pain. TECHNIQUE: Three views of the left ankle. COMPARISON: None. FINDINGS: No acute fracture or dislocation is seen in the left ankle. Alignment appears normal. There are degenerative changes in the tibiotalar joint. Mild irregularity at the medial malleolus may be from degenerative change or remote trauma. There is moderate soft tissue swelling about the left ankle and left lower leg. No significant joint effusion is seen. There is enthesopathy at the Achilles tendon. There is calcific atherosclerosis. IMPRESSION: 1. No acute osseous abnormality is seen in the left ankle. There is moderate soft tissue swelling. Additional chronic findings as described above. Dictated by: Dictated on workstation # [id number]
--- OUTSIDE RECORDS SUMMARY | 2018-12-28 18:13 | XMS REPORT ---
Author Author CHELSY VILLAFANA [facility] Address [address] [place] [address] Care Team Providers Care Ice House Supervisor Name Role Phone CHELSY VILLAFANA Unavailable PROBLEMS Type Condition ICD9-CM Code FDN25-WT Code Onset Dates Condition Status SNOMED Code Problem Chronic kidney disease, stage 4 (severe) N18.4 Active 763316003 Problem Psoriasis of scalp L40.9 Active 520411176 Problem Type 2 diabetes mellitus with hyperglycemia E11.65 Active 692829147226702 Problem Fibromyalgia M79.7 Active 083444132 Problem History of DVT (deep vein thrombosis) Z86.718 Active 019503592 Problem Carpal tunnel syndrome, bilateral G56.03 Active 33014348587338148 Problem Type 2 diabetes mellitus with other diabetic kidney complication E11.29 Active 778312963 Problem Anemia in other chronic diseases classified elsewhere D63.8 Active 065642811 Problem nursing home 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 Active 765058450 Problem Paresthesia of right upper extremity R20.2 Active 72113031 Problem Bilateral lower extremity edema R60.0 Active 587307675 Problem Supplemental oxygen dependent Z99.81 Active 442780000435 Problem Sleep apnea in adult G47.33 Active 64211746 Problem Chronic pain syndrome G89.4 Active 657671942 Problem 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.01 Active 670575258 Problem Essential hypertension I10 Active 14872451 Problem Gastroesophageal reflux disease without esophagitis K21.9 Active 437252187 Problem Chronic obstructive pulmonary disease, unspecified COPD type J44.9 Active 18042518 Problem 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 Active 527856817967284 Problem Primary insomnia F51.01 Active 5111825 Problem Oxygen desaturation during sleep G47.34 Active 473520567 Problem Right carpal tunnel syndrome G56.01 Active 478934148435610 Problem Diabetic polyneuropathy associated with type 2 diabetes mellitus E11.42 Active 20785843 Problem Depression, unspecified depression type F32.9 Active 63101238 ALLERGIES No Information ENCOUNTERS Encounter Location Date Diagnosis [facility] [address], [place] [address] Feb, [facility] [address], [place] [address] Feb, [facility] [address], [place] [address] Jan, [facility] [address], [place] [address] Jan, [facility] [address], [place] [address] Jan, [address] [id number] Jan, [facility] [address], [place] [address] Jan, [facility] [address], [place] [address] Jan, [facility] [address], [place] [address] Jan, Essential hypertension I10 [facility] [address], [place] [address] Jan, Chronic obstructive pulmonary disease, unspecified COPD type J44.9 [facility] [address], [place] [address] Jan, [facility] [address], [place] [address] Jan, [facility] [address], [place] [address] Jan, Type 2 diabetes mellitus with other diabetic kidney complication E11.29 ; Anemia in other chronic diseases classified elsewhere D63.8 ; Chronic obstructive pulmonary disease, unspecified COPD type J44.9 and BMI 60.0-69.9, adult Z68.44 [facility] [address] [address] Jan, [facility] [id number] [place] [address] Jan, [facility] [id number] [id number] Jan, [facility] [id number] [place] [id number] Dec, [facility] [id number] [place] [id number] Dec, [facility] [id number] [place] [phone] Dec, Essential hypertension I10 ; Type 2 diabetes mellitus with other diabetic kidney complication E11.29 ; Depression, unspecified depression type F32.9 ; Supplemental oxygen dependent Z99.81 ; Chronic pain syndrome G89.4 ; Fibromyalgia M79.7 ; Carpal tunnel syndrome, bilateral G56.03 and Chronic kidney disease, stage 4 (severe) N18.4 [facility] [address] [place] [address] Dec, Essential hypertension I10 [facility] [id number] [place] [address] November, Type 2 diabetes mellitus with other diabetic kidney complication E11.29 [facility] [address], [place] [address] November, Chronic pain syndrome G89.4 [facility] [address], [place] [address] November, [facility] [id number] [place] [address] November, [facility] [id number] [place] [address] November, [facility] [address], [place] [address] Oct, Type 2 diabetes mellitus with other diabetic kidney complication E11.29 [facility] [address], [place] [address] Oct, Primary insomnia F51.01 [place] [address] [id number] [id number] Oct, Bilateral lower extremity edema R60.0 [facility] [address] [place] [address] Oct, [place] [id number] [place] [address] Sep, Type 2 diabetes mellitus with other diabetic kidney complication E11.29 and Chronic obstructive pulmonary disease, unspecified COPD type J44.9 [place] [address] [place] [address] 15 Aug, 2017 Type 2 diabetes mellitus with other diabetic kidney complication E11.29 [address] [place] [address] 12 Aug, 2017 Gastroesophageal reflux disease without esophagitis K21.9 ; nursing home current use of anticoagulant Z79.01 ; Chronic pain syndrome G89.4 ; Essential hypertension I10 and Type 2 diabetes mellitus with other diabetic kidney complication E11.29 [place] [address], [place] [address] 08 Aug, 2017 Chronic pain syndrome G89.4 [place] [address] [place] [address] Aug, Type 2 diabetes mellitus with other diabetic kidney complication E11.29 [place] [address], [place] [address] Jul, Diabetic polyneuropathy associated with type 2 diabetes mellitus E11.42 [place] [address] [place] [address] Jul, Primary insomnia F51.01 [facility] [address], [place] [address] Jul, [place] [address], [place] [address] Jul, Type 2 diabetes mellitus with other diabetic kidney complication E11.29 and Chronic obstructive pulmonary disease, unspecified COPD type J44.9 [place] [address] [place] [address] Jul, Type 2 diabetes mellitus with other diabetic kidney complication E11.29 [place] [id number] [place] [address] Jun, Type 2 diabetes mellitus with other diabetic kidney complication E11.29 [place] [id number] [place] [address] 27 Jun, 2017 [place] [id number] [place] [address] Jun, Chronic obstructive pulmonary disease, unspecified COPD type J44.9 [place] [id number] [place] [address] May, Type 2 diabetes mellitus with other diabetic kidney complication E11.29 [place] [id number] [place] [address] May, 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.01 and Essential hypertension I10 [address] [place] [address] May, Anemia in other chronic diseases classified elsewhere D63.8 ; Chronic obstructive pulmonary disease, unspecified COPD type J44.9 ; Oxygen desaturation during sleep G47.34 ; Sleep apnea in adult G47.33 and Supplemental oxygen dependent Z99.81 [address] [place] [address] May, Type 2 diabetes mellitus with other diabetic kidney complication E11.29 ; Essential hypertension I10 ; Chronic pain syndrome G89.4 ; BMI 40.0- 44.9, adult Z68.41 ; Gastroesophageal reflux disease without esophagitis K21.9 ; nursing home current use of anticoagulant Z79.01 ; nursing home 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 ; Diabetic polyneuropathy associated with type 2 diabetes mellitus E11.42 ; Edema of both legs R60.0 and Supplemental oxygen dependent Z99.81 [place] [id number] [place] [address] May, [place] [id number] [place] [address] May, Essential hypertension I10 and Gastroesophageal reflux disease without esophagitis K21.9 [place] [address] [address] May, [place] [address] [address] May, Type 2 diabetes mellitus with other diabetic kidney complication E11.29 and 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.01 [place] [id number] [place] [address] Apr, Chronic pain syndrome G89.4 and Essential hypertension I10 [place] [id number] [place] [address] Apr, Type 2 diabetes mellitus with other diabetic kidney complication E11.29 [place] [id number] [place] [address] Apr, Type 2 diabetes mellitus with other diabetic kidney complication E11.29 [place] [id number] [place] [address] Apr, Essential hypertension I10 [place] [id number] [place] [address] Apr, Gastroesophageal reflux disease without esophagitis K21.9 [place] [address] [place] [address] Apr, Type 2 diabetes mellitus with other diabetic kidney complication E11.29 [place] [id number] [place] [address] Apr, Type 2 diabetes mellitus with other diabetic kidney complication E11.29 and 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.01 [facility] [address], [place] [address] 27 Mar, 2017 Encounter for immunization Z23 and Preoperative examination Z01.818 [facility] [id number] [place] [address] Mar, [facility] [id number] [place] [address] Mar, Type 2 diabetes mellitus with other diabetic kidney complication E11.29 [place] [id number] [place] [address] 08 Mar, 2017 Type 2 diabetes mellitus with other diabetic kidney complication E11.29 [place] [id number] [place] [address] Mar, Gastroesophageal reflux disease without esophagitis K21.9 [place] [address] [place] [address] Mar, Essential hypertension I10 [place] [address] [place] [address] Feb, 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.01 [facility] [id number] [place] [address] Feb, Type 2 diabetes mellitus with other diabetic kidney complication E11.29 [facility] [id number] [place] [address] Feb, Type 2 diabetes mellitus with other diabetic kidney complication E11.29 [facility] [id number] [place] [address] Feb, Type 2 diabetes mellitus with other diabetic kidney complication E11.29 [place] [id number] [place] [address] Feb, Gastroesophageal reflux disease without esophagitis K21.9 [facility] [id number] [place] [address] 03 Aug, 2017 Type 2 diabetes mellitus with other diabetic kidney complication E11.29 [facility] [address], [place] [address] Feb, nursing home current use of anticoagulant Z79.01 [facility] [address], [place] [address] Jan, Type 2 diabetes mellitus with other diabetic kidney complication E11.29 [facility] [id number] [place] [address] Jan, Type 2 diabetes mellitus with other diabetic kidney complication E11.29 [facility] [address], [place] [address] Jan, Chronic pain syndrome G89.4 [facility] [address], [place] [address] Jan, [facility] [id number] [place] [address] Jan, [facility] [address], [place] [address] Jan, [facility] [id number] [place] [address] Jan, [facility] [address], [place] [address] Jan, Primary insomnia F51.01 ; Type 2 diabetes mellitus with other diabetic kidney complication E11.29 ; Chronic pain syndrome G89.4 and Essential hypertension I10 [facility] [address], [place] [address] Jan, Primary insomnia F51.01 [facility] [id number] [place] [address] Jan, Type 2 diabetes mellitus with other diabetic kidney complication E11.29 [facility] [address], [place] [address] Jan, [facility] [address] [place] [address] Jan, 2017 Chronic obstructive pulmonary disease, unspecified COPD type J44.9 [facility] [id number] [place] [address] Jan, Essential hypertension I10 ; Type 2 [...] associated with type 2 diabetes mellitus E11.42 [place] [id number] [place] [address] Jan, Gastroesophageal reflux disease without esophagitis K21.9 [facility] [id number] [place] [address] Dec, [facility] [id number] [place] [address] Dec, [facility] [id number] [place] [address] Dec, nursing home current use of anticoagulant Z79.01 ; Chronic pain syndrome G89.4 and Essential hypertension I10 [facility] [address], [place] [address] Dec, [facility] [id number] [place] [address] Dec, Type 2 diabetes mellitus with other diabetic kidney complication E11.29 [facility] [address], [place] [address] Dec, [facility] [id number] [place] [address] Dec, Gastroesophageal reflux disease without esophagitis K21.9 [facility] [id number] [place] [address] 24 May, 2017 Type 2 diabetes mellitus with other diabetic kidney complication E11.29 [facility] [address], [place] [address] November, [facility] [address] [place] [address] November, Type 2 diabetes mellitus with other diabetic kidney complication E11.29 [facility] [address] [place] [address] November, [facility] [address] [place] [address] November, Type 2 diabetes mellitus with other diabetic kidney complication E11.29 [facility] [id number] [place] [address] November, [facility] [id number] [place] [address] Oct, Essential hypertension I10 [facility] [address] [place] [address] Oct, Psoriasis of scalp L40.9 [facility] [address] [place] [address] Oct, Essential hypertension I10 and Chronic pain syndrome G89.4 [facility] [address] [place] [address] Oct, [facility] [address] [place] [address] Sep, Type 2 diabetes mellitus with other diabetic kidney complication E11.29 [facility] [address], [place] [address] Sep, [facility] [id number] [place] [address] Sep, Type 2 diabetes mellitus with other diabetic kidney complication E11.29 [facility] [address], [place] [address] Sep, Type 2 diabetes mellitus with other diabetic kidney complication E11.29 [place] [address] [place] [address] 09 Sep, 2017 Type 2 diabetes mellitus [...] extremity R20.2 and Psoriasis of scalp L40.9 [place] [address] [place] [address] Sep, [address] [address] Aug, Essential hypertension I10 [place] [address] [address] Aug, History of DVT (deep vein thrombosis) Z86.718 [place] [id number] [place] [address] Aug, [place] [address] [place] [address] Jul, [place] [address] [place] [address] Jul, [place] [address] [place] [address] Jul, 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.01 ; Chronic pain syndrome G89.4 and Chronic kidney disease, stage 4 (severe) N18.4 [place] [id number] [place] [address] Jul, [place] [address] [address] Jul, [place] [address], [place] [address] Jul, [place] [address] [place] [address] Jul, [place] [address], [place] [address] Jul, [place] [id number] [place] [address] Jul, Type 2 diabetes mellitus with other diabetic kidney complication E11.29 [place] [address] [place] [address] Jul, History of DVT (deep vein thrombosis) Z86.718 [place] [address] [place] [address] Jun, [place] [address] [place] [address] Jun, History of DVT (deep vein thrombosis) Z86.718 [place] [id number] [place] [address] 15 Jun, 2016 Post traumatic stress disorder (PTSD) F43.10 [address], [place] [address] 07 Jun, 2016 Type 2 diabetes mellitus [...] pain M79.641 and Right wrist pain M25.531 [facility] [address] [place] [address] May, [facility] [id number] [place] [address] May, [facility] [address] [address] May, [facility] [id number] [place] [address] May, [facility] [id number] [place] [address] May, Anemia in other chronic diseases classified elsewhere D63.8 [facility] [address] [address] May, [facility] [id number] [place] [address] Apr, [facility] [id number] [place] [address] 27 Mar, 2016 Dermatofibroma D23.9 [facility] [address] [place] [address] 20 Mar, 2016 [facility] [id number] [place] [address] 14 Mar, 2016 Chronic pain syndrome G89.4 [facility] [id number] [place] [address] 09 Mar, 2016 [facility] [id number] [place] [address] 07 Mar, 2016 [facility] [id number] [place] [address] 06 Mar, 2016 [facility] [address] [place] [address] Feb, [facility] [address], [place] [address] Feb, [facility] [address], [place] [address] Feb, [facility] [address] [place] [address] Feb, [facility] [id number] [place] [address] Feb, [facility] [id number] [place] [address] Feb, [facility] [id number] [place] [address] Feb, Type 2 diabetes mellitus with other [...] Renal failure, chronic, stage 4 (severe) N18.4 [facility] [address] [address] Feb, Skin tags, multiple acquired L91.8 [facility] [id number] [place] [address] Jan, [facility] [address] [place] [id number] Jan, Dental examination Z01.20 [facility] [id number] [place] [phone] Jan, [facility] [id number] [place] [phone] Jan, Type 2 diabetes mellitus with other [...] Renal failure, chronic, stage 4 (severe) N18.4 [place] [id number] [place] [phone] Dec, Diabetes type 2, uncontrolled E11.65 [place] [id number] [place] [phone] Dec, [place] [id number] [place] [address] Dec, Type 2 diabetes mellitus with other [...] F51.01 and Depression, unspecified depression type F32.9 [facility] [address] [id number][place] [id number] Dec, Dental caries K02.9 [facility] [address] [id number] [place] [address] [id number] Dec, [facility] [address] [id number] [place] [id number] Dec, Dental examination Z01.20 [facility] [address] [id number], [place] [id number] November, Dental examination Z01.20 and Dental caries K02.9 [facility] [address] [id number][place] [id number] Oct, [facility] [address] [id number] [place] [address] [id number] Oct, [facility] [address] [id number] [place] [address] [id number] Sep, [facility] [address] [id number] [place] [address] [id number] Sep, [facility] [address] [id number] [place] [address] [id number] Sep, [facility] [address] [id number] [place] [address] [id number] Sep, Other chronic pain 338.29 [facility] [address] [id number] [place] [address] [id number] Aug, Diabetes type 2, uncontrolled E11.65 and Morbid obesity due to excess calories E66.01 [facility] [address] [id number] [place] [address] [id number] Aug, Hair loss L65.9 [facility] [address] [id number], [place] [id number] Aug, [facility] [address] [id number] [place] [address] [id number] Jul, [facility] [address] [id number][place] [id number] Jul, [facility] [address] [id number] [place] [address] [id number] Jun, [facility] [address] [id number] [place] [address] [id number] Jun, Hair loss L65.9 and Disorder of the skin and subcutaneous tissue, unspecified L98.9 [facility] [id number] [place] [address] [id number] May, Type 2 diabetes mellitus with other diabetic kidney complication E11.29 ; Type 2 diabetes mellitus with hyperglycemia E11.65 ; Morbid obesity due to excess calories E66.01 and Essential hypertension I10 [facility] [id number] [place] [address] [phone] May, Diabetes type 2, uncontrolled E11.65 ; Encounter for immunization Z23 and Morbid obesity due to excess calories E66.01 [facility] [id number] [place] [address] [phone] May, [facility] [address] [address] Apr, [address] [id number] Apr, Hyperglycemia R73.[address] [id number] Apr, [address] [id number] Apr, Depression F32.9 ; Encounter for immunization Z23 ; Hyperglycemia R73.9 and Anemia in other chronic diseases classified elsewhere D63.8 [facility] [id number] [place] [address] [id number] Mar, [place] [id number] [place] [address] [phone] Feb, Positive occult stool blood test 792.1 [place] [id number] [place] [address] [id number] Feb, Depression 311 ; Other chronic pain 338.29 and Diabetes with renal manifestations, type II or unspecified type, not stated as uncontrolled 250.40 [facility] [id number] [place] [address] Feb, Occult blood in stools 792.1 [address] [place] [id number] [place] [address] [id number] Feb, Anemia 285.9 ; Occult blood positive stool 792.1 ; Unspecified essential hypertension 401.9 and Other chronic pain 338.29 [facility] [id number], [place] [id number] Feb, [facility] [id number] [place] [address] [id number] Feb, Anemia 285.9 [facility] [id number] [place] [address] [id number] Feb, [facility] [id number] [place] [address] [id number] Feb, [facility] [id number] [place] [address] [id number] Feb, Diabetes with renal manifestations, type II or unspecified type, not stated as uncontrolled 250.40 ; Other chronic pain 338.29 ; Unspecified essential hypertension 401.9 ; Anemia 285.9 and Depression 311 [facility] [id number] [place] [address] [id number] Jan, [facility] [id number] [place] [address] [id number] Jan, Anemia 285.9 and Follow up V67.9 [facility] [id number] [place] [address] [id number] Jan, [facility] [id number] [place] [address] [id number] Jan, [facility] [id number] [place] [address] [id number] Jan, [facility] [id number] [place] [address] [id number] Dec, [facility] [id number] [place] [phone] Oct, [facility] [id number] [place] [phone] Oct, [facility] [id number] [place] [address] Sep, [facility] [address] [id number][place] [id number] Sep, [facility] [id number] [place] [address] Sep, [facility] [place] [address] [id number] [place] [id number] Aug, [facility] [place] [facility] [address] [facility] [id number], [place] [address] Aug, [facility] [place] [facility] [address] [facility] [id number] [place] [address] Aug, [facility] [place] [address] [id number], [place] [id number] Aug, [facility] [place] [facility] [address] [facility] [id number] [place] [address] Aug, [facility] [place] [facility] [address] [facility] [id number], [place] [address] Aug, [facility] [place] [address] [facility] [id number], [place] [id number] Aug, [facility] [place] [facility] [address]00565100[place], [place] [address] Aug, [facility] [place] [address] [facility] [id number], [place] [id number] Jul, [facility] [place] [facility] [address]00565100[place], [place] [address] Jul, [facility] [place] [facility] [address] [facility] [id number], [place] [address] Jul, [facility] [place] [address] [facility] [id number], [place] [id number] Jul, [facility] [place] [facility] [address] [facility] [id number], [place] [address] Jul, [facility] [place] [address] [facility] [id number], [place] [id number] Jul, [facility] [place] [facility] [address] [facility] [id number], [place] [address] Jul, [facility] [place] [address] [id number], [place] [id number] Jun, [facility] [place] [address] [facility] [id number], [place] [id number] Jun, [facility] [place] [facility] [address] [facility] [id number][place] [address] Jun, [facility] [place] [facility] [address] [facility] [id number], [place] [address] Jun, [facility] [place] [address] [facility] [id number], [place] [id number] Jun, [facility] [place] [facility] [address] [facility] [id number][place] [address] Jun, [facility] [place] [address] [facility] [id number], [place] [id number] May, [facility] [place] [facility] [address] [facility] [id number], [place] [address] May, [facility] [place] [facility] [address]00565100[place], [place] [address] May, [facility] [place] [address] [facility] [id number], [place] [id number] Apr, [facility] [place] [facility] [address] [facility] [id number], [place] [address] Apr, [facility] [place] [address] [facility] [id number], [place] [id number] Apr, [facility] [place] [address] [facility] [id number], [place] [id number] Apr, [facility] [place] [facility] [address] [facility] [id number], [place] [address] Apr, [facility] [place] [facility] [address] [facility] [id number], [place] [address] Apr, [facility] [place] [address] [facility] [id number], [place] [id number] Mar, [facility] [place] [facility] [address] [facility] [id number], [place] [address] Mar, [facility] [place] [address] [facility] [id number], [place] [id number] Mar, [facility] [place] [facility] [address] [id number], [place] [address] Mar, [facility] [address] [id number] [place] [id number] Mar, [facility] [place] [facility] [address] [facility] [id number] [place] [address] Mar, [facility] [place] [address] [id number] [place] [id number] Mar, [facility] [place] [facility] [address] [facility] [id number] [place] [address] Mar, [facility] [place] [address] [id number] [place] [id number] Mar, [facility] [place] [facility] [address] [facility] [id number], [place] [address] Mar, [facility] [address] [facility] [id number], [place] [id number] Feb, [facility] [place] [facility] [address] [facility] [id number][place] [address] Feb, [facility] [address] [facility] [id number], [place] 558243699 Jan, [facility] [place] [facility] [address] [facility] [id number], [place] [address] Jan, [facility] [address] [facility] [id number][place] [id number] Jan, [facility] [place] [facility] [address] [facility] [id number], [place] [address] Jan, [facility] [place] [address] [facility] [id number], [place] [id number] Jan, [facility] [place] [facility] [address] [facility] [id number] [place] [address] Jan, [facility] [place] [facility] [address] [facility] [id number][place] [address] Dec, [facility] [place] [facility] [address] [facility] [id number], [place] [address] Dec, [facility] [address] [id number] [place] [id number] November, [facility] [place] [facility] [address] [id number] [place] [address] November, [facility] [address] [id number] [place] [id number] November, [facility] [place] [facility] [address] [id number] [place] [address] November, [facility] [place] [address] [id number] [place] [id number] Oct, [facility] [place] [facility] [address] [id number] [place] [address] Oct, [facility] [place] [facility] [address] [facility] [id number] [place] [address] Oct, [facility] [place] [facility] [address] [facility] [id number] [place] [address] Oct, [facility] [place] [facility] [address] [facility] [id number], [place] [address] Oct, [facility] [place] [facility] [address] [facility] [id number] [place] [address] Oct, [facility] [place] [address] [id number], [place] [id number] Sep, [facility] [address] [id number], [place] 812704101 Sep, [facility] [place] [facility] [address] [id number], [place] [address] Sep, [facility] [place] [facility] [address] [id number] [place] [address] Sep, [facility] [place] [address] [id number] [place] [id number] Sep, [facility] [place] [facility] [address] [facility] [id number] [place] [address] Sep, [facility] [place] [facility] [address] [id number], [place] [address] Aug, [facility] [place] [facility] [address] [facility] [id number], [place] [address] Aug, [facility] [place] [address] [facility] [id number], [place] 040807195 Aug, [facility] [place] [address] [facility] [id number] [place] 817981750 Aug, [facility] [place] [facility] [address] [facility] [id number][place] [address] Aug, [facility] [place] [address] [facility] [id number] [place] 077842522 Aug, [facility] [place] [facility] [address]00565100[place], [place] [address] Aug, [facility] [id number], [place] [id number] Aug, [facility] [place] [facility] [address]00565100[place], [place] [address] Aug, [facility] [place] [address] [id number], [place] 748686157 Aug, [facility] [place] [facility] [address]00565100[place], [place] [address] Aug, [facility] [place] [address] [id number], [place] 877636837 Aug, [facility] [place] [facility] [address]00565100[place], [place] [address] Aug, [facility] [place] [facility] [address] [id number], [place] [address] Jul, [facility] [place] [address] [facility] [id number], [place] 742819655 Jun, [facility] [place] [facility] [address] [id number], [place] [address] Jun, [facility] [place] [facility] [address]00565100[place], [place] [address] Jun, [facility] [place] [facility] [address] [id number] [place] [address] Jun, [facility] [place] [address] [id number], [place] 618077478 Jun, [facility] [place] [facility] [address] [facility] [id number] [place] [address] Jun, [facility] [place] [facility] [address] [id number] [place] [address] Jun, [facility] [place] [address] [facility] [id number] [place] 830398061 Jun, [facility] [place] [facility] [address] [id number], [place] [address] Jun, [facility] [place] [facility] [address] [facility] [id number], [place] [address] May, [facility] [place] [address] [id number], [place] 824909077 May, [facility] [place] [facility] [address] [facility] [id number], [place] [address] May, [facility] [place] [facility] [address] [facility] [id number], [place] [address] May, [facility] [place] [facility] [address] [facility] [id number], [place] [address] May, [facility] [place] [facility] [address] [facility] [id number], [place] [address] May, [facility] [place] [address] [facility] [id number], [place] 120399445 May, [facility] [place] [facility] [address] [facility] [id number], [place] [address] May, [facility] [place] [address] [facility] [id number], [place] [id number] May, [facility] [place] [facility] [address] [facility] [id number][place] [address] May, [facility] [place] [address] [facility] [id number], [place] 014748169 Apr, [facility] [place] [facility] [address] [facility] [id number], [place] [address] Apr, [facility] [place] [facility] [address] [facility] [id number], [place] [address] Apr, [facility] [address] [facility] [id number], [place] 767348253 Apr, [facility] [place] [facility] [address] [facility] [id number], [place] [address] Apr, [facility] [place] [facility] [address] [facility] [id number], [place] [address] Apr, [facility] [place] [id number], [place] [id number] Apr, [facility] [place] [facility] [address]00565100[place], [place] [address] Apr, [facility] [place] [facility] [address]00565100[place], [place] [address] Apr, [facility] [place] [facility] [address]00565100[place], [place] [address] Apr, [facility] [place] [address]00565100[place] 538595628 Apr, [facility] [place] [facility] [address] [facility] [id number], [place] [address] Apr, [facility] [address] [facility] [id number], [place] 085115835 Apr, [facility] [place] [facility] [address] [facility] [id number], [place] [address] Apr, [facility] [address] [facility] [id number], [place] [id number] Apr, [facility] [place] [facility] [address] [facility] [id number], [place] [address] Apr, [facility] [place] [facility] [address] [facility] [id number], [place] [address] Apr, [facility] [address] [facility] [id number], [place] [address] Apr, [facility] [place] [address] [id number] [place] [id number] Apr, [facility] [address] [facility] [id number][place] [address] Mar, [facility] [address] [facility] [id number], [place] [address] Mar, [facility] [place] [address] [id number] [place] 770811457 Mar, [facility] [place] [address] [id number] [place] 622256043 Mar, [facility] [place] [address] [id number] [place] [id number] Mar, [facility] [place] [address] [id number] [place] [id number] Feb, [facility] [place] [address] [id number] [place] 047900890 Feb, [facility] [place] [address] [id number] [place] [id number] Feb, [facility] [address] [facility] [id number], [place] [address] Feb, [facility] [place] [address] [id number] [place] [id number] Feb, [facility] [place] [address] [id number] [place] [id number] Feb, [facility] [place] [address] [id number] [place] 898736342 Feb, [facility] [place] [address] [id number] [place] [id number] Feb, [facility] [place] [address] [id number] [place] [id number] Feb, [facility] [place] [address] [id number] [place] [id number] Jan, [facility] [place] [address] [id number] [place] 695652361 Jan, [facility] [place] [address] [id number] [place] 907713942 Jan, [facility] [place] [address] [id number] [place] 695824581 Jan, [facility] [place] [address] [id number] [place] 632951891 Jan, [facility] [id number] [place] [address] Jan, [facility] [place] [address] [id number] [place] 324977333 Jan, [facility] [place] [address] [id number] [place] [id number] Jan, [facility] [place] [address] [id number] [place] [id number] Dec, [facility] [place] [address] [id number] [place] [id number] November, [facility] [place] [address] [id number] [place] 546383352 November, [facility] [place] [address] [id number] [place] 796163573 November, [facility] [place] [address] [id number] [place] 257429308 November, [facility] [place] [address] [id number] [place] 748606091 November, [facility] [place] [address] [id number] [place] [id number] November, [facility] [place] [address] [id number] [place] [id number] Jul, [facility] [place] [address] [id number] [place] [id number] Jul, [facility] [place] [address] [id number] [place] [id number] Jul, [facility] [place] [address] [id number] [place] [id number] Jun, [facility] [id number] [address] Jun, [facility] [place] [address] [id number][place] [id number] May, [facility] [place] [facility] [address] [facility] [id number] [address] May, [facility] [place] [address] [id number][place] [id number] May, [facility] [place] [facility] [address] [facility] [id number], [place] [address] May, [facility] [place] [address] [id number][place] [id number] May, [facility] [place] [facility] [address] [facility] [id number][place] [address] May, [facility] [place] [address] [id number][place] [id number] Apr, [facility] [place] [facility] [id number], [place] [address] Apr, [facility] [place] [facility] [address] [facility] [id number], [place] [address] Apr, [facility] [place] [address] [id number][place] [id number] Apr, [facility] [place] [address] [id number][place] [id number] Apr, [facility] [place] [facility] [id number], [place] [address] Apr, [facility] [place] [facility] [address] [facility] [id number], [place] [address] Apr, [facility] [place] [address] [id number][place] [id number] Apr, [facility] [place] [facility] [address] [facility] [id number], [place] [address] Apr, [facility] [place] [address] [id number][place] [id number] Apr, [facility] [place] [address] [id number] [place] [address] [place] [id number] Apr, [facility] [place] [address] [id number] [place] [id number] Mar, [facility] [place] [address] [id number] [place] [id number] Feb, [facility] [place] [address] [id number] [place] [id number] Jan, [facility] [place] [address] [id number] [place] [id number] Dec, [facility] [place] [address] [id number] [place] [address] Dec, [facility] [place] [address] [id number] [place] [id number] Dec, [facility] [place] [address] [id number] [place] [id number] Dec, [facility] [place] [address] [id number] [place] [id number] Dec, [facility] [place] [address] [id number] [place] [id number] November, [facility] [place] [address] [id number] [place] [id number] November, [facility] [place] [address] [id number] [place] [id number] November, [facility] [address] [facility] [id number], [place] [address] November, [facility] [place] [address] [id number] [place] [id number] November, [facility] [place] [address] [id number] [place] [id number] November, [facility] [place] [address] [id number] [place] [id number] Oct, [facility] [place] [address] [id number] [place] [id number] Oct, [facility] [place] [address] [id number] [place] [id number] Oct, [facility] [place] [address] [id number] [place] [id number] Oct, [facility] [place] [address] [id number] [place] [id number] Oct, [facility] [place] [address] [id number] [place] [id number] Oct, [facility] [place] [address] [id number] [place] [address] Sep, [facility] [place] [address] [id number] [place] [id number] Aug, [facility] [place] [address] [id number] [place] [id number] Aug, [facility] [place] [address] [id number] [place] [id number] Jul, [facility] [place] [facility] [address] [facility] [id number], [place] [address] Jun, [facility] [place] [facility] [address] [id number], [place] [address] Jun, [facility] [place] [facility] [id number], [place] [address] Jun, [facility] [place] [facility] [id number], [place] [address] Jun, [facility] [place] [facility] [id number], [place] [address] May, [facility] [place] [facility] [id number], [place] [address] May, [facility] [place] [facility] [id number], [place] [address] Apr, [facility] [place] [facility] [address] [id number], [place] [address] Apr, [facility] [place] [facility] [id number], [place] [address] Apr, [facility] [place] [facility] [id number], [place] [address] Feb, [facility] [place] [facility] [id number] [address] 15 Aug, 2010 [facility] [address] [id number] [place] [address] 18 Jul, 2010 [facility] [place] [facility] [address] [address] [id number] [place] [address] 30 Jun, 2010 [facility] [address] [id number] [place] [address] 29 May, 2010 [facility] [place] [facility] [address] [id number] [place] [address] May, [facility] [address] [id number] [place] [address], [place] [address] May, [facility] [address] [facility] [id number] [place] [address] May, [facility] [address] [facility] [id number] [place] [address] May, [facility] [address] [id number] [place] [address] 16 Aug, 2009 [facility] [address] [facility] [id number] [place] [address] Jun, [facility] [address] [facility] [id number] [place] [address] Jun, [facility] [place] [facility] [address] [facility] [id number] [place] [address] Jun, [facility] [address] [id number], [place] [address] 24 May, 2009 [facility] [place] [facility] [address] [id number] [place] [address] 28 Apr, 2009 [facility] [place] [facility] [address] [facility] [id number] [place] [address] Apr, [facility] [address] [facility] [id number], [place] [address] Apr, [facility] [address] [facility] [id number], [place] [address] Jan, [facility] [address] [facility] [id number], [place] [address] Oct, [facility] [address] [facility] [id number], [place] [address] May, [facility] [address] [facility] [id number], [place] [address] May, IMMUNIZATIONS No Known Immunizations SOCIAL HISTORY Never Assessed REASON FOR VISIT Refill request PLAN OF CARE VITAL SIGNS MEDICATIONS Medication Instructions Dosage Frequency Start Date End Date Duration Status Gabapentin 600 MG Orally 3 times a [...] Dialysis [facility]es 2012 -Dr. Simon now [facility] Medical History Colonoscopy (polyps 2 ) [...]
--- OUTSIDE RECORDS SUMMARY | 2018-12-28 18:14 | XMS REPORT ---
Author Author CHELSY VILLAFANA [facility] Address [address] [place] [address] Care Team Providers Care Utilities Estimator And Drafter Name Role Phone CHELSY VILLAFANA Unavailable PROBLEMS Type Condition ICD9-CM Code AXM22-OF Code Onset Dates Condition Status SNOMED Code Problem Chronic kidney disease, stage 4 (severe) N18.4 Active 620466691 Problem Psoriasis of scalp L40.9 Active 469384485 Problem Type 2 diabetes mellitus with hyperglycemia E11.65 Active 592818793290006 Problem Fibromyalgia M79.7 Active 089129329 Problem History of DVT (deep vein thrombosis) Z86.718 Active 246761548 Problem Carpal tunnel syndrome, bilateral G56.03 Active 59163111595230558 Problem Type 2 diabetes mellitus with other diabetic kidney complication E11.29 Active 785549792 Problem Anemia in other chronic diseases classified elsewhere D63.8 Active 432370177 Problem nursing home 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 Active 069773084 Problem Paresthesia of right upper extremity R20.2 Active 43519253 Problem Bilateral lower extremity edema R60.0 Active 415986709 Problem Supplemental oxygen dependent Z99.81 Active 931415467595 Problem Sleep apnea in adult G47.33 Active 48191866 Problem Chronic pain syndrome G89.4 Active 204621573 Problem 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 Active 345502640 Problem Essential hypertension I10 Active 74191256 Problem Gastroesophageal reflux disease without esophagitis K21.9 Active 092877638 Problem Chronic obstructive pulmonary disease, unspecified COPD type J44.9 Active 66779313 Problem 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 Active 984640981201455 Problem Primary insomnia F51.01 Active 2040465 Problem Oxygen desaturation during sleep G47.34 Active 162795106 Problem Right carpal tunnel syndrome G56.01 Active 902930665059746 Problem Diabetic polyneuropathy associated with type 2 diabetes mellitus E11.42 Active 85303284 Problem Depression, unspecified depression type F32.9 Active 47589756 ALLERGIES No Information ENCOUNTERS Encounter Location Date Diagnosis [facility] [address], [place] [address] Feb, [facility] [address], [place] [address] Jan, [facility] [address] [address] Jan, [facility] [address], [place] [address] Jan, [facility] [id number] [id number] Jan, [facility] [address], [place] [address] Jan, [facility] [address] [address] Jan, [facility] [address] [address] Jan, Essential hypertension I10 [facility] [address] [address] Jan, Chronic obstructive pulmonary disease, unspecified COPD type J44.9 [facility] [address] [address] Jan, [facility] [address] [address] Jan, [facility] [address] [address] Jan, Type 2 diabetes mellitus with other diabetic kidney complication E11.29 ; Anemia in other chronic diseases classified elsewhere D63.8 ; Chronic obstructive pulmonary disease, unspecified COPD type J44.9 and BMI 60.0-69.9, adult Z68.44 [facility] [address], [place] [address] Jan, [facility] [address], [place] [address] Jan, [facility] [id number] [id number] Jan, [facility] [id number] [id number] Dec, [facility] [address] [id number] [address] Dec, [facility] [id number] [place] [id number] Dec, Essential hypertension I10 ; Type 2 diabetes mellitus with other diabetic kidney complication E11.29 ; Depression, unspecified depression type F32.9 ; Supplemental oxygen dependent Z99.81 ; Chronic pain syndrome G89.4 ; Fibromyalgia M79.7 ; Carpal tunnel syndrome, bilateral G56.03 and Chronic kidney disease, stage 4 (severe) N18.4 [facility] [id number] [place] [address] Dec, Essential hypertension I10 [facility] [id number] [place] [address] November, Type 2 diabetes mellitus with other diabetic kidney complication E11.29 [facility] [id number] [place] [address] November, Chronic pain syndrome G89.4 [facility] [id number] [address] November, [facility] [id number] [place] [address] November, [facility] [id number] [place] [address] November, [facility] [id number] [place] [address] Oct, Type 2 diabetes mellitus with other diabetic kidney complication E11.29 [facility] [id number] [place] [address] Oct, Primary insomnia F51.01 [facility] [address] [id number] [id number] Oct, Bilateral lower extremity edema R60.0 [facility] [address], [place] [address] Oct, [facility] [address] [place] [address] Sep, Type 2 diabetes mellitus with other diabetic kidney complication E11.29 and Chronic obstructive pulmonary disease, unspecified COPD type J44.9 [facility] [address], [place] [address] 15 Aug, 2017 Type 2 diabetes mellitus with other diabetic kidney complication E11.29 [facility] [address], [place] [address] 12 Aug, 2017 Gastroesophageal reflux disease without esophagitis K21.9 ; 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 ; Chronic pain syndrome G89.4 ; Essential hypertension I10 and Type 2 diabetes mellitus with other diabetic kidney complication E11.29 [facility] [address], [place] [address] 08 Aug, 2017 Chronic pain syndrome G89.4 [facility] [address], [place] [address] Aug, Type 2 diabetes mellitus with other diabetic kidney complication E11.29 [facility] [address], [place] [address] Jul, Diabetic polyneuropathy associated with type 2 diabetes mellitus E11.42 [facility] [address], [place] [address] Jul, Primary insomnia F51.01 [facility] [address], [place] [address] Jul, [facility] [address], [place] [address] 14 [place], 2018 Type 2 diabetes mellitus with other diabetic kidney complication E11.29 and Chronic obstructive pulmonary disease, unspecified COPD type J44.9 [facility] [address] [place] [address] Jul, Type 2 diabetes mellitus with other diabetic kidney complication E11.29 [facility] [id number] [place] [address] Jun, Type 2 diabetes mellitus with other diabetic kidney complication E11.29 [facility] [id number] [place] [address] Jun, [facility] [id number] [place] [address] Jun, Chronic obstructive pulmonary disease, unspecified COPD type J44.9 [facility] [id number] [place] [address] May, Type 2 diabetes mellitus with other diabetic kidney complication E11.29 [facility] [id number] [place] [address] May, nursing home current use of anticoagulant Z79.01 and Essential hypertension I10 [id number] [place] [address] May, Anemia in other chronic diseases classified elsewhere D63.8 ; Chronic obstructive pulmonary disease, unspecified COPD type J44.9 ; Oxygen desaturation during sleep G47.34 ; Sleep apnea in adult G47.33 and Supplemental oxygen dependent Z99.81 [facility] [id number] [place] [address] May, Type 2 diabetes mellitus with other diabetic kidney complication E11.29 ; Essential hypertension I10 ; Chronic pain syndrome G89.4 ; BMI 40.0- 44.9, adult Z68.41 ; Gastroesophageal reflux disease without esophagitis K21.9 ; 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 ; nursing home 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 ; Diabetic polyneuropathy associated with type 2 diabetes mellitus E11.42 ; Edema of both legs R60.0 and Supplemental oxygen dependent Z99.81 [facility] [address] [place] [address] May, [facility] [id number] [place] [address] May, Essential hypertension I10 and Gastroesophageal reflux disease without esophagitis K21.9 [facility] [id number] [place] [address] May, [facility] [id number] [place] [address] May, Type 2 diabetes mellitus with other diabetic kidney complication E11.29 and nursing home current use of anticoagulant Z79.01 [facility] [id number] [place] [address] Apr, Chronic pain syndrome G89.4 and Essential hypertension I10 [facility] [id number] [place] [address] Apr, Type 2 diabetes mellitus with other diabetic kidney complication E11.29 [facility] [id number] [place] [address] Apr, Type 2 diabetes mellitus with other diabetic kidney complication E11.29 [facility] [id number] [place] [address] Apr, Essential hypertension I10 [facility] [facility] [id number] [place] [address] Apr, Gastroesophageal reflux disease without esophagitis K21.9 [facility] [id number] [place] [address] Apr, Type 2 diabetes mellitus with other diabetic kidney complication E11.29 [facility] [id number] [place] [address] Apr, Type 2 diabetes mellitus with other diabetic kidney complication E11.29 and 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 [facility] [id number] [place] [address] Mar, Encounter for immunization Z23 and Preoperative examination Z01.818 [facility] [id number] [place] [address] Mar, [facility] [id number] [place] [address] Mar, Type 2 diabetes mellitus with other diabetic kidney complication E11.29 [place] [facility] [address] [address] 08 Mar, 2017 Type 2 diabetes mellitus with other diabetic kidney complication E11.29 [facility] [id number] [place] [address] 06 Mar, 2017 Gastroesophageal reflux disease without esophagitis K21.9 [facility] [id number] [place] [address] Mar, Essential hypertension I10 [place] [address] [address] Feb, 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 [place] [facility] [id number] [place] [address] Feb, Type 2 diabetes mellitus with other diabetic kidney complication E11.29 [facility] [id number] [place] [address] Feb, Type 2 diabetes mellitus with other diabetic kidney complication E11.29 [facility] [id number] [place] [address] Feb, Type 2 diabetes mellitus with other diabetic kidney complication E11.29 [facility] [facility] [id number] [place] [address] Feb, Gastroesophageal reflux disease without esophagitis K21.9 [place] [facility] [id number] [place] [address] Feb, Type 2 diabetes mellitus with other diabetic kidney complication E11.29 [facility] [facility] [id number] [place] [address] Feb, 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 [facility] [address] [address] Jan, Type 2 diabetes mellitus with other diabetic kidney complication E11.29 [facility] [address], [place] [address] Jan, Type 2 diabetes mellitus with other diabetic kidney complication E11.29 [facility] [address] [address] Jan, Chronic pain syndrome G89.4 [facility] [address] [address] Jan, [facility] [id number], [place] [address] Jan, [facility] [address], [place] [address] Jan, [facility] [address], [place] [address] Jan, [facility] [address], [place] [address] Jan, Primary insomnia F51.01 ; Type 2 diabetes mellitus with other diabetic kidney complication E11.29 ; Chronic pain syndrome G89.4 and Essential hypertension I10 [facility] [address] [address] Jan, Primary insomnia F51.01 [facility] [address] [address] Jan, Type 2 diabetes mellitus with other diabetic kidney complication E11.29 [facility] [address] [address] Jan, [facility] [address] [address] Jan, Chronic obstructive pulmonary disease, unspecified COPD type J44.9 [facility] [address] [address] Jan, Essential hypertension I10 ; Type 2 [...] associated with type 2 diabetes mellitus E11.42 [facility] [id number] [place] [address] Jan, Gastroesophageal reflux disease without esophagitis K21.9 [facility] [id number] [place] [address] Dec, [facility] [facility] [id number] [place] [address] Dec, [place] [facility] [id number] [place] [address] Dec, nursing home current use of anticoagulant Z79.01 ; Chronic pain syndrome G89.4 and Essential hypertension I10 [place] [facility] [id number] [place] [address] Dec, [facility] [id number] [place] [address] Dec, Type 2 diabetes mellitus with other diabetic kidney complication E11.29 [facility] [address] [place] [address] Dec, [facility] [id number] [place] [address] Dec, Gastroesophageal reflux disease without esophagitis K21.9 [facility] [id number] [place] [address] November, Type 2 diabetes mellitus with other diabetic kidney complication E11.29 [facility] [facility] [id number] [place] [address] November, [facility] [address] [address] November, Type 2 diabetes mellitus with other diabetic kidney complication E11.29 [facility] [id number] [address] November, [facility] [id number] [place] [address] November, Type 2 diabetes mellitus with other diabetic kidney complication E11.29 [facility] [id number] [place] [address] November, [facility] [id number] [place] [address] Oct, Essential hypertension I10 [facility] [id number] [place] [address] Oct, Psoriasis of scalp L40.9 [facility] [id number] [place] [address] Oct, Essential hypertension I10 and Chronic pain syndrome G89.4 [facility] [id number] [place] [address] Oct, [facility] [id number] [place] [address] Sep, Type 2 diabetes mellitus with other diabetic kidney complication E11.29 [facility] [address] [address] Sep, [facility] [address] [place] [address] Sep, Type 2 diabetes mellitus with other diabetic kidney complication E11.29 [facility] [address] [address] Sep, Type 2 diabetes mellitus with other diabetic kidney complication E11.29 [facility] [id number] [place] [address] Sep, Type 2 diabetes mellitus with other [...] and Psoriasis of scalp L40.9 [place] [address] [address] Sep, [place] [address] [address] Aug, Essential hypertension I10 [place] [address] [address] Aug, History of DVT (deep vein thrombosis) Z86.718 [facility] [id number] [place] [address] Aug, [place] [address] [address] Jul, [place] [id number] [place] [address] Jul, [place] [address] [address] Jul, 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 ; Chronic pain syndrome G89.4 and Chronic kidney disease, stage 4 (severe) N18.4 [place] [address] [address] Jul, [place] [facility] [id number] [place] [address] Jul, [place] [address] [address] Jul, [place] [id number] [address] Jul, [place] [address] [address] Jul, [place] [address], [place] [address] Jul, Type 2 diabetes mellitus with other diabetic kidney complication E11.29 [place] [address] [address] 16 Jul, 2016 History of DVT (deep vein thrombosis) Z86.718 [place] [address] [place] [address] 23 Jun, 2016 [address] [address] 19 Jun, 2016 History of DVT (deep vein thrombosis) Z86.718 [place] [address] [address] 15 Jun, 2016 Post traumatic stress disorder (PTSD) F43.10 [address], [place] [address] 07 Jun, 2016 Type 2 diabetes mellitus [...] pain M79.641 and Right wrist pain M25.531 [facility] [address] [address] 28 May, 2016 [facility] [id number] [place] [address] May, [facility] [id number] [place] [address] May, [facility] [id number] [place] [address] 15 May, 2016 [facility] [id number] [place] [address] 11 May, 2016 Anemia in other chronic diseases classified elsewhere D63.8 [facility] [id number] [place] [address] May, [facility] [id number] [place] [address] 10 Apr, 2016 [facility] [address] [place] [address] 27 Mar, 2016 Dermatofibroma D23.9 [facility] [id number] [place] [address] 20 Mar, 2016 [facility] [address] [place] [address] 14 Mar, 2016 Chronic pain syndrome G89.4 [facility] [address] [place] [address] 09 Mar, 2016 [facility] [id number] [address] 07 Mar, 2016 [facility] [id number] [place] [address] 06 Mar, 2016 [facility] [address] [address] 30 Feb, 2016 [facility] [address] [address] Feb, [facility] [id number] [place] [address] Feb, [facility] [id number] [place] [address] Feb, [facility] [id number] [place] [address] Feb, [facility] [id number] [place] [address] Feb, [place] [id number] [place] [address] Feb, Type 2 diabetes mellitus with other [...] Renal failure, chronic, stage 4 (severe) N18.4 [place] [address] [place] [address] Feb, Skin tags, multiple acquired L91.8 [facility] [address] [place] [address] Jan, [facility] [id number] [place] [id number] Jan, Dental examination Z01.20 [facility] [address] [place] [address] Jan, [facility] [id number] [place] [address] Jan, Type 2 diabetes mellitus with other [...] Renal failure, chronic, stage 4 (severe) N18.4 [facility] [address] [place] [id number] [place] [address] Dec, Diabetes type 2, uncontrolled E11.65 [place] [id number] [place] [address] Dec, [address] [address] Dec, Type 2 diabetes mellitus with other [...] and Depression, unspecified depression type F32.9 [facility] [id number] [place] [address] [id number] Dec, Dental caries K02.9 [facility] [address] [id number], [place] [id number] Dec, [facility] [id number] [place] [address] [id number] Dec, Dental examination Z01.20 [facility] [address] [id number] 945754972 November, Dental examination Z01.20 and Dental caries K02.9 [facility] [address] [id number], [place] [id number] Oct, [facility] [address] [id number] [place] [id number] Oct, [facility] [address] [id number] [place] [id number] Sep, [facility] [address] [id number] [place] [id number] Sep, [facility] [address] [id number] [place] [id number] Sep, [facility] [address] [id number] [place] [id number] Sep, Other chronic pain 338.29 [facility] [address] [id number] [place] [address] [id number] Aug, Diabetes type 2, uncontrolled E11.65 and Morbid obesity due to excess calories E66.01 [facility] [address] [id number] [place] [address] [id number] Aug, Hair loss L65.9 [facility] [address] [id number], [place] [id number] Aug, [facility] [address] [id number] [place] [address] [id number] Jul, [facility] [address] [id number] [place] [address] [id number] Jul, [facility] [address] [id number] [place] [address] [id number] Jun, [facility] [address] [id number] [place] [address] [id number] Jun, Hair loss L65.9 and Disorder of the skin and subcutaneous tissue, unspecified L98.9 [facility] [address] [id number] [place] [address] [id number] May, Type 2 diabetes mellitus with other diabetic kidney complication E11.29 ; Type 2 diabetes mellitus with hyperglycemia E11.65 ; Morbid obesity due to excess calories E66.01 and Essential hypertension I10 [place] [id number] [place] [address] [id number] May, Diabetes type 2, uncontrolled E11.65 ; Encounter for immunization Z23 and Morbid obesity due to excess calories E66.01 [place] [id number] [place] [address] [id number] May, [facility] [address] [address] Apr, [place] [id number] [place] [address] [id number] Apr, Hyperglycemia R73.[address] [id number] Apr, [place] [id number] [place] [address] [id number] Apr, Depression F32.9 ; Encounter for immunization Z23 ; Hyperglycemia R73.9 and Anemia in other chronic diseases classified elsewhere D63.8 [facility] [id number][place] [id number] Mar, [place] [id number] [place] [address] [id number] Feb, Positive occult stool blood test 792.1 [place] [id number] [place] [address] [id number] Feb, Depression 311 ; Other chronic pain 338.29 and Diabetes with renal manifestations, type II or unspecified type, not stated as uncontrolled 250.40 [facility] [address]00565100[place] [address] Feb, Occult blood in stools 792.1 [place] [id number] [place] [address] [id number] Feb, Anemia 285.9 ; Occult blood positive stool 792.1 ; Unspecified essential hypertension 401.9 and Other chronic pain 338.29 [id number] [place] [address] [id number] Feb, [address] [id number], [place] [id number] Feb, Anemia 285.9 [facility] [place] [id number], [place] [id number] Feb, [facility] [place] [id number] [place] [address] [id number] Feb, [facility] [place] [id number] [place] [address] [id number] Feb, Diabetes with renal manifestations, type II or unspecified type, not stated as uncontrolled 250.40 ; Other chronic pain 338.29 ; Unspecified essential hypertension 401.9 ; Anemia 285.9 and Depression 311 [facility] [place] [id number] [place] [address] [id number] Jan, [facility] [place] [id number] [place] [address] [id number] Jan, Anemia 285.9 and Follow up V67.9 [facility] [place] [id number] [place] [address] [id number] Jan, [facility] [place] [id number], [place] [id number] Jan, [facility] [place] [id number] [place] [address] [id number] Jan, [facility] [place] [id number] [place] [address] [id number] Dec, [facility] [id number] [address] Oct, [facility] [id number] [place] [address] Oct, [facility] [id number] [place] [address] Sep, [facility] [place] [id number] [place] [address] [id number] Sep, [facility] [id number] [place] [address] Sep, [facility] [place] [id number] [place] [address] [id number] Aug, [facility] [place] [facility] [address] [facility] [id number] [address] Aug, [facility] [place] [facility] [address] [facility] [id number] [address] Aug, [facility] [place] [address] [facility] [place] [id number], [place] [id number] Aug, [facility] [place] [facility] [address] [facility] [id number][place] [address] Aug, [facility] [place] [facility] [address] [facility] [id number] [place] [address] Aug, [facility] [place] [address] [facility] [place] [id number], [place] [id number] Aug, [facility] [place] [facility] [address] [id number] [address] Aug, [facility] [place] [address] [facility] [place] [id number], [place] [id number] Jul, [facility] [place] [facility] [address] [facility] [id number], [place] [address] Jul, [facility] [place] [facility] [address] [id number] [address] Jul, [facility] [place] [address] [facility] [place] [id number], [place] [id number] Jul, [facility] [place] [facility] [address] [facility] [id number][place] [address] Jul, [facility] [place] [address] [facility] [place] [id number], [place] [id number] Jul, [facility] [place] [facility] [address] [facility] [id number][place] [address] Jul, [facility] [place] [address] [facility] [place] [id number], [place] [id number] Jun, [facility] [place] [address] [facility] [place] [id number], [place] [id number] Jun, [facility] [place] [facility] [address] [facility] [id number] [address] Jun, [facility] [place] [facility] [address] [facility] [id number] [place] [address] Jun, [facility] [place] [address] [facility] [place] [id number] [place] [id number] Jun, [facility] [place] [facility] [address] [facility] [id number] [address] Jun, [facility] [place] [address] [facility] [place] [id number], [place] [id number] May, [facility] [place] [facility] [address] [facility] [id number] [place] [address] May, [facility] [place] [facility] [address] [facility] [id number] [place] [address] May, [facility] [place] [address] [facility] [place] [id number], [place] [id number] Apr, [facility] [place] [facility] [address] [facility] [id number] [address] Apr, [facility] [place] [address] [facility] [place] [id number] [place] [id number] Apr, [facility] [place] [address] [facility] [place] [id number], [place] [id number] Apr, [facility] [place] [facility] [address] [facility] [id number][place] [address] Apr, [facility] [place] [facility] [address] [facility] [id number][place] [address] Apr, [facility] [place] [address] [facility] [place] [id number], [place] [id number] Mar, [facility] [place] [facility] [address] [facility] [id number][place] [address] Mar, [facility] [place] [address] [facility] [place] [id number], [place] [id number] Mar, [facility] [place] [facility] [address] [facility] [id number] [address] Mar, [facility] [place] [address] [id number] [place] [id number] Mar, [facility] [place] [facility] [address] [id number] [place] [address] Mar, [facility] [place] [address] [id number] [place] [id number] Mar, [facility] [place] [facility] [address] [id number] [address] Mar, [facility] [place] [address] [id number] [place] 077726251 Mar, [facility] [place] [facility] [address] [id number] [place] [address] Mar, [facility] [place] [address] [id number] [place] [id number] Feb, [facility] [place] [facility] [address] [id number][place] [address] Feb, [facility] [place] [address] [facility] [id number] [place] [id number] Jan, [facility] [place] [facility] [address] [facility] [id number] [address] Jan, [facility] [place] [address] [facility] [id number], [place] [id number] Jan, [facility] [place] [facility] [address] [id number][place] [address] Jan, [facility] [place] [address] [id number], [place] [id number] Jan, [facility] [place] [facility] [address] [id number] [address] Jan, [facility] [place] [facility] [address] [facility] [id number] [place] [address] Dec, [facility] [place] [facility] [address] [id number] [place] [address] Dec, [facility] [place] [address] [facility] [id number], [place] [id number] November, [facility] [place] [facility] [address] [id number] [place] [address] November, [facility] [place] [address] [facility] [place] [id number] [place] [id number] November, [facility] [place] [facility] [address] [id number] [place] [address] November, [facility] [place] [address] [facility] [id number] [place] [id number] Oct, [facility] [place] [facility] [address] [id number] [place] [address] Oct, [facility] [place] [facility] [address] [id number] [place] [address] Oct, [facility] [place] [facility] [address] [facility] [id number] [place] [address] Oct, [facility] [place] [facility] [address] [facility] [id number] [place] [address] Oct, [facility] [place] [facility] [address] [id number] [place] [address] Oct, [facility] [place] [address] [id number] [place] [id number] Sep, [facility] [place] [address] [facility] [id number] [place] 905884019 Sep, [facility] [place] [facility] [address] [facility] [id number] [place] [address] Sep, [facility] [place] [facility] [address] [id number] [place] [address] Sep, [facility] [place] [address] [facility] [id number] [place] [id number] Sep, [facility] [place] [facility] [address] [facility] [id number] [place] [address] Sep, [facility] [place] [facility] [address] [facility] [id number] [place] [address] Aug, [facility] [place] [facility] [address] [facility] [id number][place] [address] Aug, [facility] [place] [address] [id number] [place] [id number] Aug, [facility] [place] [address] [facility] [id number] [place] [id number] Aug, [facility] [place] [facility] [address] [facility] [id number][place] [address] Aug, [facility] [place] [address] [facility] [id number] [place] [id number] Aug, [facility] [place] [facility] [address] [facility] [id number][place] [address] Aug, [facility] [place] [address] [facility] [id number] [place] [id number] Aug, [facility] [place] [facility] [address]005[address]100[place] [address] Aug, [facility] [place] [address] [facility] [id number], [place] 001192132 Aug, [facility] [place] [facility] [address]005[address]100[place] [address] Aug, [facility] [place] [address] [facility] [id number], [place] [id number] Aug, [facility] [place] [facility] [address]005[address]100[place] [address] Aug, [facility] [place] [facility] [address] [facility] [id number][place] [address] Jul, [facility] [place] [address] [facility] [id number], [place] 232459541 Jun, [facility] [place] [facility] [address] [facility] [id number][place] [address] Jun, [facility] [place] [facility] [address] [id number] [address] Jun, [facility] [place] [facility] [address] [address] Jun, [facility] [place] [address] [facility] [id number] [place] 510690123 Jun, [facility] [place] [facility] [address] [id number] [place] [address] Jun, [facility] [place] [facility] [address] [facility] [id number] [place] [address] Jun, [facility] [place] [address] [facility] [id number], [place] [id number] Jun, [facility] [place] [facility] [address] [id number] [place] [address] Jun, [facility] [place] [facility] [address] [facility] [id number][place] [address] May, [facility] [place] [address] [id number], [place] [id number] May, [facility] [place] [facility] [address] [id number] [address] May, [facility] [place] [facility] [address] [id number] [address] May, [facility] [place] [facility] [address] [id number] [address] May, [facility] [place] [facility] [address] [facility] [id number], [place] [address] May, [facility] [place] [address] [facility] [id number], [place] 552607850 May, [facility] [place] [facility] [address] [id number][place] [address] May, [facility] [place] [address] [facility] [id number], [place] [id number] May, [facility] [place] [facility] [address] [facility] [id number], [place] [address] May, [facility] [place] [address] [facility] [id number], [place] 346588500 Apr, [facility] [place] [facility] [address] [id number], [place] [address] Apr, [facility] [address] [facility] [id number][place] [address] Apr, [facility] [address] [facility] [id number], [place] 354378812 Apr, [facility] [place] [facility] [address] [id number], [place] [address] Apr, [facility] [place] [facility] [address] [id number][place] [address] Apr, [facility] [address] [facility] [id number], [place] 063216895 Apr, [facility] [place] [facility] [address] [facility] [id number] [address] Apr, [facility] [place] [facility] [address] [facility] [id number] [address] Apr, [facility] [place] [facility] [address] [facility] [id number] [address] Apr, [facility] [address] [facility] [id number], [place] 069295278 Apr, [facility] [place] [facility] [address] [facility] [id number], [place] [address] Apr, [facility] [address] [facility] [id number], [place] [id number] Apr, [facility] [place] [facility] [address] [facility] [id number][place] [address] Apr, [facility] [address] [facility] [id number], [place] 810264585 Apr, [facility] [place] [facility] [address] [facility] [id number][place] [address] Apr, [facility] [place] [facility] [address] [facility] [id number][place] [address] Apr, [facility] [place] [facility] [address] [facility] [id number][place] [address] Apr, [facility] [place] [address] [id number] [place] 531672799 Apr, [facility] [address] [facility] [id number] [address] Mar, [facility] [address] [facility] [id number][place] [address] Mar, [facility] [place] [address] [id number] [place] 893121498 Mar, [facility] [place] [address] [id number] [place] 137225555 Mar, [facility] [place] [address] [id number] [place] 144912810 Mar, [facility] [place] [address] [id number] [place] 633309047 Feb, [facility] [place] [address] [id number] [place] 027656380 Feb, [facility] [place] [address] [id number] [place] 674277382 Feb, [facility] [address] [facility] [id number] [address] Feb, [facility] [place] [address] [id number] [place] 930754997 Feb, [facility] [place] [address] [id number] [place] 452471809 Feb, [facility] [place] [address] [id number] [place] 607505168 Feb, [facility] [address] [id number] [place] 467505603 Feb, [facility] [place] [address] [id number] [place] 716124548 Feb, [facility] [place] [address] [id number] [place] 439995613 Jan, [facility] [place] [address] [id number] [place] 273697217 Jan, [facility] [place] [address] [id number] [place] 482097184 Jan, [facility] [place] [address] [id number] [place] 054787645 Jan, [facility] [place] [address] [id number] [place] 690282883 Jan, [facility] [address] [facility] [id number] [place] [address] Jan, [facility] [place] [address] [id number] [place] 995853376 Jan, [facility] [place] [address] [id number] [place] 116923963 Jan, [facility] [place] [address] [id number] [place] 047680573 Dec, [facility] [place] [address] [id number] [place] 312896687 November, [facility] [place] [address] [id number] [place] 782851180 November, [facility] [place] [address] [id number] [place] 104935227 November, [facility] [place] [address] [id number] [place] 920346696 November, [facility] [place] [address] [id number] [place] 044159170 November, [facility] [place] [address] [id number] [place] 900886053 November, [facility] [place] [address] [id number] [place] [id number] Jul, [facility] [place] [address] [id number] [place] [id number] Jul, [facility] [place] [address] [id number] [place] [id number] Jul, [facility] [place] [address] [id number] [place] [id number] Jun, [facility] [address] [id number] [place] [address] Jun, [facility] [place] [address] [id number][place] [id number] May, [facility] [place] [facility] [address] [id number][place] [address] May, [facility] [place] [address] [id number][place] [id number] May, [facility] [address] [facility] [id number] [address] May, [facility] [place] [address] [id number][place] [id number] May, [facility] [place] [facility] [address] [facility] [id number][place] [address] May, [facility] [place] [address] [facility] [id number][place] [id number] Apr, [facility] [place] [facility] [address] [facility] [id number][place] [address] Apr, [facility] [place] [facility] [address] [facility] [id number] [address] Apr, [facility] [place] [address] [id number][place] [id number] Apr, [facility] [place] [address] [facility] [id number][place] [id number] Apr, [facility] [place] [facility] [address] [facility] [id number] [address] Apr, [facility] [place] [facility] [address] [facility] [id number][place] [address] Apr, [facility] [place] [address] [id number], [place] [id number] Apr, [facility] [place] [facility] [address] [facility] [id number] [address] Apr, [facility] [place] [address] [id number][place] [id number] Apr, [facility] [place] [address] [id number], [place] [id number] Apr, [facility] [place] [address] [id number][place] [id number] Mar, [facility] [place] [address] [id number] [place] [id number] Feb, [facility] [place] [address] [id number] [place] [id number] Jan, [facility] [place] [address] [id number] [place] [id number] Dec, [facility] [place] [address] [id number] [place] [id number] Dec, [facility] [place] [address] [id number] [place] [id number] Dec, [facility] [place] [address] [id number] [place] [id number] Dec, [facility] [place] [address] [id number] [place] [id number] Dec, [facility] [place] [address] [id number] [place] [id number] November, [facility] [place] [address] [id number] [place] [id number] November, [facility] [place] [address] [id number] [place] [id number] November, [facility] [id number] [address] November, [facility] [place] [address] [id number] [place] [id number] November, [facility] [place] [address] [id number] [place] [id number] November, [facility] [place] [address] [id number] [place] [id number] Oct, [facility] [place] [address] [id number] [place] [id number] Oct, [facility] [place] [address] [id number] [place] [id number] Oct, [facility] [place] [address] [id number] [place] [id number] Oct, [facility] [place] [address] [id number] [place] [id number] Oct, [facility] [place] [address] [id number] [place] [id number] Oct, [facility] [place] [address] [id number] [place] [id number] Sep, [facility] [place] [address] [id number] [place] [id number] Aug, [facility] [place] [address] [id number] [place] [id number] Aug, [facility] [place] [address] [id number] [place] [id number] Jul, [facility] [place] [facility] [address] [facility] [id number] [address] Jun, [facility] [place] [facility] [address] [facility] [id number], [place] [address] Jun, [facility] [place] [facility] [id number] [address] Jun, [facility] [place] [facility] [id number], [place] [address] Jun, [facility] [place] [facility] [id number], [place] [address] May, [facility] [place] [facility] [id number], [place] [address] May, [facility] [place] [facility] [id number], [place] [address] Apr, [facility] [place] [facility] [address] [id number] [address] Apr, [facility] [place] [facility] [address] [facility] [id number][place] [address] Apr, [facility] [place] [facility] [address] [id number] [address] Feb, [facility] [place] [facility] [address] [id number] [address] Aug, [facility] [place] [facility] [id number], [place] [address] 18 Jul, 2010 [facility] [address] [id number] [place] [address] 30 Jun, 2010 [facility] [address] [id number] [place] [address] May, [facility] [address] [id number] [place] [address] May, [facility] [address] [id number] [place] [address] May, [facility] [address] [id number] [place] [address], [place] [address] May, [facility] [address] [facility] [id number] [place] [address] May, [facility] [address] [facility] [id number] [place] [address] Aug, [facility] [address] [id number] [place] [address] Jun, [facility] [address] [facility] [id number] [place] [address] Jun, [facility] [address] [facility] [id number] [place] [address] Jun, [facility] [address] [id number] [place] [address] 24 May, 2009 [facility] [address] [id number] [address] Apr, [facility] [address] [facility] [id number] [place] [address] 27 Apr, 2009 [facility] [place] [facility] [address] [facility] [id number] [place] [address] 15 Apr, 2009 [facility] [address] [id number] [place] [address] Jan, [facility] [address] [facility] [id number] [place] [address] Oct, [facility] [address] [facility] [id number] [place] [address] May, [facility] [address] [facility] [id number] [place] [address] May, IMMUNIZATIONS No Known Immunizations SOCIAL HISTORY Never Assessed REASON FOR VISIT Prior Authorization Request PLAN OF CARE VITAL SIGNS MEDICATIONS Unknown [...] Dialysis Ruthy Reveles 2012 -Dr. Simon now [facility] Medical History Colonoscopy (polyps 2 ) [...]
[2018-12-28 18:21] VITALS: BP 110/77
--- NOTE | 2018-12-28 18:21 | NUR ---
DRESSING CHANGED BEFORE DISCHARGE.
== END 2018-12-28 18:21 | disposition home or self-care (01) ==
LOC: EDUNIT# 17:29 → ER 17:30
DX: S81.832A Puncture wound without foreign body, left lower leg, initial encounter (principal); J44.9 Chronic obstructive pulmonary disease, unspecified; G47.30 Sleep apnea, unspecified; E11.51 Type 2 diabetes mellitus with diabetic peripheral angiopathy without gangrene; I10 Essential (primary) hypertension; E78.00 Pure hypercholesterolemia, unspecified; I25.10 Atherosclerotic heart disease of native coronary artery without angina pectoris; E11.40 Type 2 diabetes mellitus with diabetic neuropathy, unspecified; E66.9 Obesity, unspecified; F41.9 Anxiety disorder, unspecified; F32.9 Major depressive disorder, single episode, unspecified; Z87.440 Personal history of urinary (tract) infections; Z99.2 Dependence on renal dialysis; Z86.718 Personal history of other venous thrombosis and embolism; Z86.711 Personal history of pulmonary embolism; Z88.2 Allergy status to sulfonamides; Z88.8 Allergy status to other drugs, medicaments and biological substances; Z88.0 Allergy status to penicillin; Z79.82 Long term (current) use of aspirin; Z79.4 Long term (current) use of insulin; Z90.49 Acquired absence of other specified parts of digestive tract; Z90.710 Acquired absence of both cervix and uterus; Z99.81 Dependence on supplemental oxygen; Z79.01 Long term (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 of anticoagulants; W26.8XXA Contact with other sharp object(s), not elsewhere classified, initial encounter
CPT/HCPCS: 73610

== ENCOUNTER 2019-01-01 16:35 | Emergency (ER) | payer MEDICARE, MEDICAID ==
[~2019-01-01] VITALS: Ht 162.6 cm; Wt 136.1 kg
[~2019-01-01 16:35] MED LIST changes: +CEPH500T PO
--- NOTE | 2019-01-01 16:52 | ED Neurological Problem ---
General Chief Complaint: Altered Mental Status Stated Complaint: AMS Nursing Triage Note: Patient brought from [facility] via EMS with complaints of EMS. patient is slow to respond but is answering questions appropriately on arrivial to ER. patient reports that she has been having back and flank pain with nausea Nursing Sepsis Screen: No Definite Risk Source: patient, EMS, senior living records Exam Limitations: clinical condition History of Present Illness Date Seen by Provider: Jan 01, 2019 Time Seen by Provider: 16:28 Initial Comments The patient presents the ER from [facility] by EMS with chief complaint of being altered mental status per staff. EMS report when they arrived she was alert and oriented 4 answering the questions appropriately. She said she woke up early this morning feeling very nauseated. She's not sure if she was given anything for her nausea. She is very hesitant and halting in her answers and does not answer all questions rather staring into space with a confused look on her face. She is accompanied by history which demonstrates right upper limb cellulitis wound of the right lower leg, fracture of the right fibula all within THE LAST MONTH. SHE ALSO HAS A BASELINE HISTORY OF AUBREE, HYPERTENSION, CAD WITHOUT ANGINA, COPD, GERD, CONSTIPATION, DIFFICULTY SWALLOWING, EDEMA CHRONIC. SHE IS ON RENAL DIALYSIS Wednesday. SHE IS DEPENDENT ON SUPPLEMENTAL O2. PRESSURE ULCER ON THE BUTTOCKS. History of atrial fibrillation. Personal history of venous thrombosis. She is on Eliquis 5 mg twice a day she takes Lasix 80 mg daily for edema. She has tramadol and oxycodone written for pain meds. Patient was noted to have a blood sugar of 87 per EMS on arrival. Oxygen sats and vital signs are unremarkable. Allergies and Home Medications Allergies Coded Allergies: Sulfa (Sulfonamide Antibiotics) (Verified Allergy, Unknown, 12/11/13) insulin aspart (Unverified Adverse Reaction, Mild, NAUSEA, 07/24/14) Patient has been administered Humalog on multiple occasions without it causing Nausea, pt. is able to take while inpatient Uncoded Allergies: plastic like plastic tape (Allergy, Intermediate, rash, 02/02/13) PCN (Allergy, Unknown, 12/11/13) Home Medications Albuterol 8.5 Gm Hfa.aer.ad, 2 PUFF IH Q4H PRN for SHORTNESS OF BREATH, (Reported) Allopurinol 100 Mg Tablet, 100 MG PO DAILY, (Reported) Apixaban 5 Mg Tablet, 5 MG PO BID, (Reported) Ascorbic Acid 250 Mg Tab.chew, 500 MG PO HS, (Reported) Aspirin 81 Mg Tablet.dr, 81 MG PO DAILY, (Reported) Atorvastatin Calcium 40 Mg Tablet, 40 MG PO DAILY, (Reported) Biotin 1,000 Mcg Tablet, 1,000 MCG PO DAILY, (Reported) Cephalexin 500 Mg Tablet, 500 MG PO TID Prescribed by: SHIVA GODOY on 12/28/18 175 Diphenhydramine HCl 25 Mg Tablet, 25 MG PO PRN PRN for allergies, (Reported) Fexofenadine HCl 60 Mg Tablet, 60 MG PO DAILY PRN for ALLERGIES, (Reported) Fluticasone/Salmeterol 1 Each Blst.w.dev, 2 PUFF INH DAILY, (Reported) Gabapentin 600 Mg Tablet, 600 MG PO TID, (Reported) Insulin Aspart 100 Unit/1 Ml Susp, 50 UNIT SQ AC, (Reported) Insulin Degludec 100 Unit/1 Ml Insuln.pen, 104 UNIT SQ DAILY, (Reported) Liraglutide 0.6 Mg/0.1 Ml Pen.injctr, 1.8 MG SQ DAILY, (Reported) Losartan Potassium 100 Mg Tablet, 100 MG PO DAILY, (Reported) Melatonin 10 Mg Tablet, 20 MG PO HS, (Reported) Milnacipran HCl 100 Mg Tablet, 100 MG PO BID, (Reported) Multivitamin 1 Each Tablet, 1 TAB PO HS, (Reported) [place] 3 Polyunsat Fatty Acids 1,000 Mg Cap, 1,000 MG PO DAILY, (Reported) [place] 3 Polyunsat Fatty Acids 1,000 Mg Cap, 2,000 MG PO HS, (Reported) Pantoprazole Sodium 40 Mg Tablet.dr, 40 MG PO DAILY, (Reported) Prednisone 20 Mg Tab, 40 MG PO DAILY Prescribed by: MEAGHAN THOMAS on 01/16/18 0523 Quetiapine Fumarate 50 Mg Tablet, 50 MG PO HS, (Reported) Soy Isofla/Blk Cohosh/Mag Bark 155 Mg Capsule, 155 MG PO DAILY, (Reported) Sucralfate 1 Gm Tablet, 1 GM PO BID, (Reported) Torsemide 20 Mg Tablet, 20 MG PO DAILY, (Reported) Tramadol HCl 50 Mg Tablet, 50 MG PO Q8H PRN for PAIN-MILD, (Reported) Trazodone Hcl 150 Mg Tablet, 150 MG PO HS, (Reported) Venlafaxine HCl 150 Mg Cap.er.24h, 150 MG PO DAILY, (Reported) Verapamil HCl 240 Mg Tablet.er, 240 MG PO DAILY, (Reported) Patient Home Medication List Home Medication List Reviewed: Yes Review of Systems Review of Systems Constitutional: No chills, No diaphoresis Eyes: Denies Blindness, Denies Blurred Vision, Denies Drainage Ears, Nose, Mouth, Throat: denies ear pain, denies ear discharge Respiratory: No cough, No short of breath Cardiovascular: No chest pain; edema Gastrointestinal: No abdominal pain, No constipation, No diarrhea; nausea Genitourinary: No discharge, No dysuria Musculoskeletal: see HPI, back pain; No joint pain Past Lleofzx-Yxqrdn-Qqeqlm Hx Patient Social History Alcohol Use: Denies Use Recreational Drug Use: No Smoking Status: Former Smoker Type Used: Cigarettes 2nd Hand Smoke Exposure: No Recent Foreign Travel: No Contact w/Someone Who Travel: No Recent Infectious Disease Expo: No Recent Hopitalizations: No Immunizations Up To Date Tetanus Booster (TDap): Unknown Date of Pneumonia Vaccine: Apr 04, 2005 Date of Influenza Vaccine: Apr 04, 2015 Past Medical History Surgeries: Yes Abdominal, Appendectomy, Bowel Surgery, Cardiac, Gallbladder, Hysterectomy, Joint Replacement, Oophorectomy, Orthopedic Respiratory: Yes (O2 /CPAP AT HS; CHRONIC DYSPNEA ON EXERTION; MULTIPLE P.E.'S ) Asthma, Chronic Bronchitis, Pulmonary Embolism, Sleep Apnea, COPD Currently Using CPAP: Yes Cardiac: Yes (CAROTID DISEASE; PAD/PVD; NON-OBSTRUCTIVE CAD; MULTIPLE DVT'S AND P.E.'S) Chronic Edema/Swelling, Coronary Artery Disease, Deep Vein Thrombosis, High Cholesterol, Hypertension, Peripheral Vascular Neurological: Yes (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 OBESITY) Diabetes, Insulin dep HEENT: No Loss of Vision: Denies Hearing Impairment: Denies Cancer: No Psychosocial: Yes Sleep Difficulties, Anxiety, Depression Integumentary: Yes Psoriasis Blood Disorders: Yes (CHRONIC ANEMIA, DVT/PE) Adverse Reaction/Blood Tranf: No Family Medical History Cataract 03 MOTHER Family history: Arthritis 03 MOTHER Family history: Asthma 09 BROTHER Family history: Diabetes mellitus 09 BROTHER Headache 09 SISTER History of - respiratory disease 09 BROTHER No Family History of: Abdominal aortic aneurysm Cancer Cystic fibrosis Family history: Alzheimer's disease Family history: Breast disease Family history: Cardiovascular disease Family history: Gastrointestinal disease Family history: Hypertension Family history: Thyroid disorder Kidney disease Myocardial infarction Psychotic disorder No Pertinent Family Hx Physical Exam Vital Signs Vital Signs - First Documented 01/01/19 16:41 Temp 96.9 Pulse 65 Resp 18 B/P (MAP) 126/53 (77) Pulse Ox 98 Capillary Refill : Less Than 3 Seconds Height, Weight, BMI Height: 5'4.00" Weight: 300lbs. 0oz. 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 Changing levels of orientation consciousness) Crainal Nerves: normal hearing, normal speech, PERRL Motor/Sensory: no motor deficit, no sensory deficit Skin: normal color Focused Exam Lactate Level 01/01/19 16:50: Lactic Acid Level 0.53 Lactic Acid Level Laboratory Tests Test 01/01/19 16:50 Lactic Acid Level 0.53 MMOL/L (0.50-2.00) Progress/Results/Core Measures Results/Orders Lab Results Laboratory Tests Test 01/01/19 16:45 01/01/19 16:47 01/01/19 16:50 Range/Units White Blood Count 5.8 4.3-11.0 10^3/uL Red Blood Count 2.99 L 4.35-5.85 10^6/uL Hemoglobin 9.1 L 11.5-16.0 G/DL Hematocrit 32 L 35-52 % Mean Corpuscular Volume 105 H 80-99 FL Mean Corpuscular Hemoglobin 30 25-34 PG Mean Corpuscular Hemoglobin Concent 29 L 32-36 G/DL Red Cell Distribution Width 14.3 10.0-14.5 % Platelet Count 179 130-400 10^3/uL Mean Platelet Volume 11.3 H 7.4-10.4 FL Neutrophils (%) (Auto) 66 42-75 % Lymphocytes (%) (Auto) 15 12-44 % Monocytes (%) (Auto) 15 H 0-12 % Eosinophils (%) (Auto) 3 0-10 % Basophils (%) (Auto) 0 0-10 % Neutrophils # (Auto) 3.8 1.8-7.8 X 10^3 Lymphocytes # (Auto) 0.9 L 1.0-4.0 X 10^3 Monocytes # (Auto) 0.9 0.0-1.0 X 10^3 Eosinophils # (Auto) 0.2 0.0-0.3 10^3/uL Basophils # (Auto) 0.0 0.0-0.1 10^3/uL Glucometer 77 70-110 MG/DL Urine Color YELLOW Urine Clarity VERY CLOUDY H Urine pH 7 5-9 Urine Specific [place] 1.010 L 1.016-1.022 Urine Protein 4+ NEGATIVE Urine Glucose (UA) NEGATIVE NEGATIVE Urine Ketones NEGATIVE NEGATIVE Urine Nitrite NEGATIVE NEGATIVE Urine Bilirubin NEGATIVE NEGATIVE Urine Urobilinogen NORMAL NORMAL MG/DL Urine Leukocyte Esterase 3+ H NEGATIVE Urine RBC (Auto) 5+ H NEGATIVE Urine RBC 2-5 H /HPF Urine WBC TNTC H /HPF Urine Squamous Epithelial Cells NONE /HPF Urine Crystals NONE /LPF Urine Bacteria LARGE H /HPF Urine Casts NONE /LPF Urine Mucus NEGATIVE /LPF Urine Culture Indicated YES Sodium Level 130 L 135-145 MMOL/L Potassium Level 5.8 H 3.6-5.0 MMOL/L Chloride Level 93 L 98-107 MMOL/L Carbon Dioxide Level 28 21-32 MMOL/L Anion Gap 9 5-14 MMOL/L Blood Urea Nitrogen 39 H 7-18 MG/DL Creatinine 5.08 H 0.60-1.30 MG/DL Estimat Glomerular Filtration Rate 9 BUN/Creatinine Ratio 8 Glucose Level 74 70-105 MG/DL Lactic Acid Level 0.53 0.50-2.00 MMOL/L Calcium Level 8.6 8.5-10.1 MG/DL Corrected Calcium 9.9 8.5-10.1 MG/DL Magnesium Level 1.2 L 1.8-2.4 MG/DL Total Bilirubin 0.4 0.1-1.0 MG/DL Aspartate Amino Transf (AST/SGOT) 19 5-34 U/L Alanine Aminotransferase (ALT/SGPT) 11 0-55 U/L Alkaline Phosphatase 126 40-136 U/L Ammonia 52 H 11-32 UMOL/L Troponin I < 0.028 <0.028 NG/ML C-Reactive Protein High Sensitivity 6.45 H 0.00-0.50 MG/DL Total Protein 5.4 L 6.4-8.2 GM/DL Albumin 2.4 L 3.2-4.5 GM/DL My Orders Orders - WALT,SHIVA J Chest 1 View, Ap/Pa Only (01/01/19 16:43) Ammonia (01/01/19 16:43) Cbc With Automated Diff (01/01/19 16:43) Comprehensive Metabolic Panel (01/01/19 16:43) Hs C Reactive Protein (01/01/19 16:43) Magnesium (01/01/19 16:43) Troponin I (01/01/19 16:43) Ua Culture If Indicated (01/01/19 16:43) Blood Culture (01/01/19 16:43) Ed Iv/Invasive Line Start (01/01/19 16:43) Straight Cath For Spec.-Adult (01/01/19 16:43) Accucheck Stat ONCE (01/01/19 16:43) Ekg Tracing (01/01/19 16:43) Continuous Ekg Monitoring (01/01/19 16:43) Lactic Acid Analyzer (01/01/19 16:43) Arterial Blood Gas (01/01/19 16:52) Urine Culture (01/01/19 16:50) Tramadol Tablet (Ultram Tablet) (01/01/19 17:15) Ed Iv/Invasive Line Start (01/01/19 18:10) Ns Iv 1000 Ml (Sodium Chloride 0.9%) (01/01/19 18:10) Cefepime Injection (Maxipime Injection) (01/01/19 18:30) Medications Given in ED Current Medications Medications Dose Ordered Sig/Bhargavi Route Start Time Stop Time Status Last Admin Dose Admin Tramadol HCl 50 mg ONCE ONCE PO 01/01/19 17:15 01/01/19 17:16 DC 01/01/19 17:28 50 MG Vital Signs/I&O 01/01/19 16:41 Temp 96.9 Pulse 65 Resp 18 B/P (MAP) 126/53 (77) Pulse Ox 98 Blood Pressure Mean: 77 Progress Progress Note #1: Time: 17:00 Progress Note Patient with a waxing and waning level of consciousness more consistent with delirium. No focal neural deficits. We'll check urinalysis, chest x-ray and labs looking for infection or drugs. The patient is now insisting that after having a straight catheter done she is having considerable amount of discomfort in her back from the procedure. She usually takes tramadol for her pain so we will provide her with tramadol. The patient's vital signs are aseptic. Nursing reports the urine that they obtained by straight catheter had a milky white consistency about 30-60 cc. Progress Note #2: Time: 18:02 Progress Note Patient is resting comfortably feeling better after the tramadol her back is no longer concern. She is answering questions appropriately and says she's not sure who her general counselor is but she's been to [place] as well as [facility] in the past. She's not sure what hospital system her general counselor is at either. Neurologic exam otherwise unchanged. Initial ECG Impression Date: Jan 01, 2019 Initial ECG Impression Time: 17:02 Initial ECG Rate: 63 Initial ECG Rhythm: Normal Sinus Initial ECG Intervals: Normal Initial ECG Impression: Normal Initial ECG Comparisson: No Previous ECG Available Comment No significant ST elevation or depression. Diagnostic Imaging Diagonstic Imaging: Xray Plain Films/CT/US/NM/MRI: chest (1v) Comments [facility], [place] NAME: DALTON QUIGLEY [facility] REC#: [id number] PT STATUS: REG ER : 1950 PHYSICIAN: SHIVA GODOY MD ADMIT DATE: 01/01/19/ER Draft Date of Exam:01/01/19 CHEST 1 VIEW, AP/PA ONLY INDICATION: Back pain and flank pain. TIME OF EXAM: 5:07 p.m. COMPARISON: Prior chest from 02/13/2018. EXAMINATION: Single view of the chest was obtained. FINDINGS: Right-sided dialysis line with tip overlying the SVC. Heart is enlarged. There is central congestion but no overt failure. No effusion or pneumothorax is seen. IMPRESSION: Cardiomegaly and central congestion. Dictated on workstation # [id number] Dict: 01/01/19 1713 Trans: 01/01/19 1722 PJ [id number] Interpreted by: ALLISON CARTER MD Electronically signed by: Reviewed: Reviewed by Me Departure Impression Primary Impression: UTI (urinary tract infection) Qualified Codes: N30.01 - Acute cystitis with hematuria Additional Impression: Delirium due to another medical condition, acute, mixed level of activity Disposition: 02 XFER [facility]-TRM HOSP Condition: Stable Transfer Time Spoke to Accepting Phy: 18:05 Transfer Progress Notes [address] [place], [place]: Discussed the case with triage nurse and she will call back with Dr. Irvin. Transfer Time: 18:20 Transfer Facility: [place], [place] Method of Transfer: EMS Departure-Patient Inst. Referrals: [facility] (PCP/Family) Primary Care Physician Copy Copies To 1: SHAYNA REAL TITUS J Jan 01, 2019 16:52
[2019-01-01 16:54] LABS: BASOPHILS % (AUTO) 0 % (0-10); EOSINOPHILS # (AUTO) 0.2 10^3/uL (0.0-0.3); EOSINOPHILS % (AUTO) 3 % (0-10); HEMATOCRIT 32 % (35-52); HEMOGLOBIN 9.1 G/DL (11.5-16.0); LYMPHOCYTES # (AUTO) 0.9 X 10^3 (1.0-4.0); LYMPHOCYTES % (AUTO) 15 % (12-44); MEAN CORPUSCULAR HEMOGLOBIN 30 PG (25-34); MEAN CORPUSCULAR HGB CONC 29 G/DL (32-36); MEAN CORPUSCULAR VOLUME 105 FL (80-99); MEAN PLATELET VOLUME 11.3 FL (7.4-10.4); MONOCYTES # (AUTO) 0.9 X 10^3 (0.0-1.0); MONOCYTES % (AUTO) 15 % (0-12); NEUTROPHILS # (AUTO) 3.8 X 10^3 (1.8-7.8); NEUTROPHILS % (AUTO) 66 % (42-75); PLATELET COUNT 179 10^3/uL (130-400); RED CELL DISTRIBUTION WIDTH 14.3 % (10.0-14.5); WHITE BLOOD COUNT 5.8 10^3/uL (4.3-11.0)
[2019-01-01 17:01] LABS: BILIRUBIN,URINE NEGATIVE (NEGATIVE); CLARITY,URINE VERY CLOUDY; COLOR,URINE YELLOW; GLUCOSE, URINE (UA) NEGATIVE (NEGATIVE); KETONES,URINE NEGATIVE (NEGATIVE); LEUKOCYTE ESTERASE ,URINE 3+ (NEGATIVE); NITRITE,URINE NEGATIVE (NEGATIVE); PH,URINE 7 (5-9); PROTEIN,URINE 4+ (NEGATIVE); UROBILINOGEN,URINE NORMAL (NORMAL)
[2019-01-01 17:03] LABS: BACTERIA,URINE LARGE /HPF; WBC,URINE TNTC /HPF
[2019-01-01 17:19] LABS: ALANINE AMINOTRANSFERASE 11 U/L (0-55); ALBUMIN 2.4 GM/DL (3.2-4.5); ALKALINE PHOSPHATASE 126 U/L (40-136); AMMONIA 52 UMOL/L (11-32); BILIRUBIN,TOTAL 0.4 MG/DL (0.1-1.0); BUN/CREATININE RATIO 8; CALCIUM 8.6 MG/DL (8.5-10.1); CARBON DIOXIDE 28 MMOL/L (21-32); CHLORIDE 93 MMOL/L (98-107); CREATININE SERUM 5.08 MG/DL (0.60-1.30); GFR ESTIMATED 9; GLUCOSE 74 MG/DL (70-105); MAGNESIUM 1.2 MG/DL (1.8-2.4); SODIUM 130 MMOL/L (135-145); TOTAL PROTEIN 5.4 GM/DL (6.4-8.2)
[2019-01-01 17:21] LABS: POTASSIUM 5.8 MMOL/L (3.6-5.0)
--- NOTE | 2019-01-01 17:23 | Diagnostic Imaging Report ---
INDICATION: Back pain and flank pain. TIME OF EXAM: 5:07 p.m. COMPARISON: Prior chest from 02/13/2018. EXAMINATION: Single view of the chest was obtained. FINDINGS: Right-sided dialysis line with tip overlying the SVC. Heart is enlarged. There is central congestion but no overt failure. No effusion or pneumothorax is seen. IMPRESSION: Cardiomegaly and central congestion. Dictated by: Dictated on workstation # [id number]
[2019-01-01] MEDS ORDERED: NS IV 1000 ML 1,000 ML IV SCH (18:10)
[2019-01-01] MEDS ORDERED: WATER (STERILE) FOR INJECTION 10 ML ONE (18:27)
[2019-01-01] MEDS ORDERED: CEFEPIME 1 GM (MAXIPIME) VIAL ONE (18:27)
[2019-01-01] MEDS ORDERED: CEFEPIME INJECTION 1,000 MG in WATER (STERILE) FOR INJECTION 10 ML IV ONE (18:30)
[2019-01-01 18:54] LABS: ABG BASE EXCESS 3.4 MMOL/L (-2.5-2.5); ABG OXYGEN SATURATION 97 % (94-100); ABG PCO2 70 MMHG (35-45); ABG PO2 103 MMHG (79-93); ABG TCO2 32.5 MMOL/L (21.0-31.0); ALLENS TEST YES-POS; INSPIRED O2 3L
[2019-01-01 18:55] LABS: ABG PH 7.25 (7.37-7.43); PATIENT TEMP 96.9; VENTILATOR NO
[2019-01-01 20:54] VITALS: BP 105/46
== END 2019-01-01 21:10 | disposition short-term general hospital (02) ==
LOC: EDUNIT# 16:35 → ER 16:36
DX: N39.0 Urinary tract infection, site not specified (principal); F05 Delirium due to known physiological condition; G47.33 Obstructive sleep apnea (adult) (pediatric); I12.9 Hypertensive chronic kidney disease with stage 1 through stage 4 chronic kidney disease, or unspecified chronic kidney disease; N18.9 Chronic kidney disease, unspecified; E11.22 Type 2 diabetes mellitus with diabetic chronic kidney disease; J44.9 Chronic obstructive pulmonary disease, unspecified; K21.9 Gastro-esophageal reflux disease without esophagitis; I48.91 Unspecified atrial fibrillation; E78.00 Pure hypercholesterolemia, unspecified; E11.51 Type 2 diabetes mellitus with diabetic peripheral angiopathy without gangrene; E11.40 Type 2 diabetes mellitus with diabetic neuropathy, unspecified; E66.9 Obesity, unspecified; F32.9 Major depressive disorder, single episode, unspecified; F41.9 Anxiety disorder, unspecified; Z86.711 Personal history of pulmonary embolism; Z90.49 Acquired absence of other specified parts of digestive tract; Z90.710 Acquired absence of both cervix and uterus; Z86.718 Personal history of other venous thrombosis and embolism; Z79.01 Long term (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 of anticoagulants; Z99.2 Dependence on renal dialysis; Z99.81 Dependence on supplemental oxygen; Z88.2 Allergy status to sulfonamides; Z88.8 Allergy status to other drugs, medicaments and biological substances; Z88.0 Allergy status to penicillin; Z79.82 Long term (current) use of aspirin; Z79.4 Long term (current) use of insulin; Z87.891 Personal history of nicotine dependence; Z87.19 Personal history of other diseases of the digestive system
CPT/HCPCS: 36415; 36600; 51701; 71045; 80053; 81000; 82140; 82805; 82962; 83605; 83735; 84484; 85025; 86141; 87040; 87088; 93005; 99291

== ENCOUNTER → 2019-02-07 | Outpatient (CLI) | payer MEDICARE, MEDICAID ==
[~2019-02-07] MED LIST changes: +ASCO250T17 PO; -ASCO250T5 PO
== END ==
LOC: LABNPT 08:59
PROVIDERS: ATTEND Internal Medicine
DX: R30.0 Dysuria (principal); Z87.440 Personal history of urinary (tract) infections
CPT/HCPCS: 87077; 87088; 87186

== ENCOUNTER 2019-02-28 05:50 | Outpatient (CLI) | payer MEDICARE, MEDICAID ==
[~2019-02-28] VITALS: Ht 162.6 cm; Wt 119.0 kg
[2019-02-28] MEDS ORDERED: SEVE2.4P3 PO (15:27)
[2019-02-28] MEDS ORDERED: RT-ALBUINH IH (15:27)
[2019-02-28] MEDS ORDERED: BISA10SU8 RC (15:27)
[2019-02-28] MEDS ORDERED: DOCU100T2 PO (15:27)
[2019-02-28] MEDS ORDERED: GUAI400T71 PO (15:27)
[2019-02-28] MEDS ORDERED: FLUT1AER IH (15:27)
[2019-02-28] MEDS ORDERED: MULT-633 PO (15:27)
[2019-02-28] MEDS ORDERED: SENN-145 PO (15:27)
[2019-02-28] MEDS ORDERED: HYDR25SU5 RC (15:27)
[2019-02-28] MEDS ORDERED: NIFE60TA74 PO (15:27)
[2019-02-28] MEDS ORDERED: PANT40TA3 PO (15:27)
[2019-02-28] MEDS ORDERED: DEXT1DRO7 OP (15:27)
[2019-02-28] MEDS ORDERED: ASPI-808 PO (15:27)
[2019-02-28] MEDS ORDERED: DESV50TA PO (15:27)
[2019-02-28] MEDS ORDERED: CALC500T7 PO (15:27)
[2019-02-28] MEDS ORDERED: LACT20SO2 PO (15:27)
[2019-02-28] MEDS ORDERED: POLY17PO6 PO (15:27)
[2019-02-28] MEDS ORDERED: MIRT15TA6 PO (15:27)
[2019-02-28] MEDS ORDERED: GABA-488 PO (15:27)
[2019-02-28] MEDS ORDERED: ACET325T49 PO (15:27)
== END 2019-02-28 15:30 | disposition home or self-care (01) ==
LOC: PREOP 05:50
PROVIDERS: ATTEND Surgery
DX: Z01.818 Encounter for other preprocedural examination (principal)

== ENCOUNTER 2019-03-02 10:17 | Day surgery (SDC) | payer MEDICARE, MEDICAID ==
[~2019-03-02] VITALS: Ht 162.6 cm; Wt 119.0 kg
[2019-03-02] VITALS (9 sets, daily range): BP systolic 127–157; BP diastolic 49–71
[~2019-03-02 10:17] MED LIST changes: +ACET325T49 PO; +ASPI-808 PO; +BISA10SU8 RC; +CALC500T7 PO; +DESV50TA PO; +DEXT1DRO7 OP; +DOCU100T2 PO; +FLUT1AER IH; +GABA-488 PO; +GUAI400T71 PO; +HYDR25SU5 RC; +LACT20SO2 PO; +MIRT15TA6 PO; +MULT-633 PO; +NIFE60TA74 PO; +PANT40TA3 PO; +POLY17PO6 PO; +RT-ALBUINH IH; +SENN-145 PO; +SEVE2.4P3 PO
[2019-03-02] MEDS ORDERED: NS IV 500 ML 500 ML IV SCH (11:00)
[2019-03-02] MEDS ORDERED: LACTATED RINGERS 1,000 ML IV PRN (11:19)
[2019-03-02] MEDS ORDERED: MIDAZOLAM 2 MG/2 ML (VERSED) VIAL ONE (11:23)
[2019-03-02] MEDS ORDERED: BUP/EPI 0.5% 1:200,000 (MARCAINE) 10ML VIAL IJ ONE (11:23)
--- NOTE | 2019-03-02 11:26 | Progress Note-Pre Operative ---
Pre-Operative Progress Note H&P Reviewed The H&P was reviewed, patient examined and no changes noted. Date Seen by Provider: Mar 02, 2019 Time Seen by Provider: 11:26 Date H&P Reviewed: Mar 02, 2019 Time H&P Reviewed: 11:26 Pre-Operative Diagnosis: chronic kidney disease RAJIV JACOBO DO Mar 02, 2019 11:26
[2019-03-02] MEDS ORDERED: CLINDAMYCIN 600 MG/50 ML IVPB 50 ML IV ONE (11:30)
[2019-03-02] MEDS ORDERED: proPOfol 200 MG/20 ML (DIPRIVAN) VIAL IV ONE (12:33)
--- NOTE | 2019-03-02 12:38 | Progress Note-Post Operative ---
Post-Operative Progess Note Surgeon (s)/Education And Development Manager (s) Surgeon RAJIV JACOBO DO Education And Development Manager: na Pre-Operative Diagnosis chronic kidney disease Post-Operative Diagnosis same Procedure & Operative Findings Date of Procedure 03/02/19 Procedure Performed/Findings removal hemodialysis catheter Anesthesia Type mac c local Estimated Blood Loss Estimated blood loss (mL): min Specimens/Packing Specimens Removed na RAJIV JACOBO DO Mar 02, 2019 12:38
--- NOTE | 2019-03-02 12:41 | Discharge Inst-Simple/Standard ---
Discharge Inst-Standard Patient Instructions/Follow Up Plan of Care/Instructions/FU: 2 weeks [place] Activity as Tolerated: No Discharge Diet: Regular Diet Other Inst to Patient Follow up Appt: Make appointment for 2 week. Instructions: No lifting greater than 10 pounds. No strenuous activity. May shower in 24 hours, no tub bath or soaking. Use incentive spirometer at home as directed. No Smoking Skin/Wound Care: May remove bandage in 24 hours. Keep area clean and dry and change bandage daily and as needed until healed over. Symptoms to Report: Appetite Changes, Extremity Discoloration, Numbness/Tingling, Swelling Increased, Bleeding Excessive, Eyesight Changes, Pain Increased, Urine Color Change, Constipation(Persistent), Fever over 101 degree F, Pain/Pressure in chest, Urinating Difficulty, Cough Up/Vomit Blood, Heart Beat Irreg/Pounding, Pain/Pressure in jaw, Vaginal Bleeding Increase, Cramps in feet or legs, Lightheadedness, Pain/Pressure in shoulder, Diarrhea(Persistent), Memory Changes Suddenly, Questions/Concerns, Weight gain consecutive days, Dizziness/Fainting, Nausea/Vomiting, Shortness of Breath, Weight gain over 2 pounds If questions or concerns contact your physician Or seek help at emergency department. RAJIV JACOBO DO Mar 02, 2019 12:41
--- NOTE | 2019-03-02 12:52 | Anesthesia-General Post-Op ---
MAC Patient Condition Mental Status/LOC: Same as Preop Cardiovascular: Satisfactory Nausea/Vomiting: Absent Respiratory: Satisfactory Pain: Controlled Complications: Absent Post Op Complications Complications None Follow Up Care/Instructions Patient Instructions None needed. Anesthesiology Discharge Order Discharge Order Patient is doing well, no complaints, stable vital signs, no apparent adverse anesthesia problems. No complications reported per nursing. BREA SOLARES CRNA Mar 02, 2019 12:51
[2019-03-02] MEDS ORDERED: fentaNYL INJECTION 100 MCG/2 ML AMP IVP ONE (13:15)
[2019-03-02] MEDS ORDERED: ONDANSETRON 4 MG/2 ML (SDV) Z0FRAN IVP PRN (13:15)
--- NOTE | 2019-03-02 19:21 | OPERATIVE REPORT ---
DATE OF SERVICE: 03/02/2019 PREOPERATIVE DIAGNOSIS: Chronic kidney disease. POSTOPERATIVE DIAGNOSIS: Chronic kidney disease. PROCEDURE: Removal of hemodialysis catheter. SURGEON: Rajiv Herndon DO ANESTHESIA: MAC with local. ESTIMATED BLOOD LOSS: Minimal. COMPLICATIONS: None. INDICATIONS: The patient is a 68-year-old female with chronic kidney disease, having dialysis. She has a hemodialysis catheter in the right upper chest and is okay to have it removed. She understands risks and benefits of procedure and wished to proceed with procedure. Consent was signed in the chart. DESCRIPTION OF PROCEDURE: The patient was taken to the operating suite. She was prepped and draped in sterile fashion. Timeout was performed. Local anesthetic was infiltrated around the catheter. Hemostat was used to dissect around it to the catheter through the into the cuff which was then released and the fibrin sheath was released and the catheter was able to be removed in its entirety. Pressure was held and hemostasis was achieved. The area was then washed and dried and sterile bandage was applied. The patient tolerated procedure well without any complications. She was taken to recovery room in stable condition. Job ID: [id number] DocumentID: [id number] Dictated Date: 03/02/2019 12:43:19 Eyelet Row Marker Date: 03/02/2019 19:19:59 Dictated By: RAJIV HERNDON DO
== END 2019-03-02 14:05 ==
LOC: SDC 10:17
PROVIDERS: ATTEND Surgery
DX: I12.9 Hypertensive chronic kidney disease with stage 1 through stage 4 chronic kidney disease, or unspecified chronic kidney disease (principal); N18.9 Chronic kidney disease, unspecified; Z11.2 Encounter for screening for other bacterial diseases; J44.9 Chronic obstructive pulmonary disease, unspecified; E78.5 Hyperlipidemia, unspecified; E11.40 Type 2 diabetes mellitus with diabetic neuropathy, unspecified; F32.9 Major depressive disorder, single episode, unspecified; F41.9 Anxiety disorder, unspecified; G47.33 Obstructive sleep apnea (adult) (pediatric); Z86.711 Personal history of pulmonary embolism; I65.29 Occlusion and stenosis of unspecified carotid artery; K52.9 Noninfective gastroenteritis and colitis, unspecified; I25.10 Atherosclerotic heart disease of native coronary artery without angina pectoris; I73.9 Peripheral vascular disease, unspecified; Z88.2 Allergy status to sulfonamides; Z96.659 Presence of unspecified artificial knee joint; Z87.891 Personal history of nicotine dependence; Z79.899 Other long term (current) drug therapy; Z79.82 Long term (current) use of aspirin; Z88.0 Allergy status to penicillin; Z79.01 Long term (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 of anticoagulants; Z99.81 Dependence on supplemental oxygen
CPT/HCPCS: 82962; 87081

== ENCOUNTER 2019-07-05 13:27 | Emergency (ER) | payer MEDICARE, MEDICAID ==
[~2019-07-05] VITALS: Ht 162.5 cm; Wt 90.9 kg
[~2019-07-05 13:27] MED LIST changes: +TRM50T PO
[2019-07-05] MEDS ORDERED: RT-ALBUTEROL/IPRATROPIUM 3 ML (DUONEB) VIAL ONE ×2 (13:39→13:46)
[2019-07-05] MEDS ORDERED: RT-ALBUTEROL SULF 2.5 MG/3 ML PRE-MIX VIAL ONE (13:46)
[2019-07-05] MEDS ORDERED: RT-ALBUTEROL SULF 2.5 MG/3 ML PRE-MIX VIAL INH STA (13:48)
[2019-07-05 14:04] LABS: BASOPHILS % (AUTO) 0 % (0-10); EOSINOPHILS # (AUTO) 0.1 10^3/uL (0.0-0.3); EOSINOPHILS % (AUTO) 1 % (0-10); HEMATOCRIT 40 % (35-52); HEMOGLOBIN 12.2 G/DL (11.5-16.0); LYMPHOCYTES # (AUTO) 1.4 X 10^3 (1.0-4.0); LYMPHOCYTES % (AUTO) 16 % (12-44); MEAN CORPUSCULAR HEMOGLOBIN 29 PG (25-34); MEAN CORPUSCULAR HGB CONC 31 G/DL (32-36); MEAN CORPUSCULAR VOLUME 94 FL (80-99); MEAN PLATELET VOLUME 13.6 FL (7.4-10.4); MONOCYTES # (AUTO) 1.1 X 10^3 (0.0-1.0); MONOCYTES % (AUTO) 12 % (0-12); NEUTROPHILS # (AUTO) 6.4 X 10^3 (1.8-7.8); NEUTROPHILS % (AUTO) 71 % (42-75); PLATELET COUNT 105 10^3/uL (130-400); RED CELL DISTRIBUTION WIDTH 14.7 % (10.0-14.5)
[2019-07-05 14:14] LABS: INR 1.3 (0.8-1.4); PROTHROMBIN TIME PATIENT 16.2 SEC (12.2-14.7)
[2019-07-05 14:18] LABS: ALBUMIN 3.8 GM/DL (3.2-4.5); BILIRUBIN,TOTAL 0.5 MG/DL (0.1-1.0); CALCIUM 9.5 MG/DL (8.5-10.1); CREATININE SERUM 6.47 MG/DL (0.60-1.30); POTASSIUM 4.3 MMOL/L (3.6-5.0); TOTAL PROTEIN 7.6 GM/DL (6.4-8.2)
--- NOTE | 2019-07-05 14:29 | Diagnostic Imaging Report ---
INDICATION: Difficulty breathing. TECHNIQUE: Single-view chest at 02:19 p.m. CORRELATION STUDY: 01/01/2019. FINDINGS: Right IJ dialysis catheter has been removed. Heart size borderline but appears slightly smaller from prior study. Vasculature however appears increased. Some fullness of the right hilum. No consolidating infiltrate. IMPRESSION: 1. Vasculature overall slightly increased from prior study. No definitive consolidating infiltrate. Dictated by: Dictated on workstation # [id number]
[2019-07-05] MEDS ORDERED: methylPREDNISolone 125 MG (Solu-MEDROL) VIAL IVP ONE (14:45)
--- NOTE | 2019-07-05 15:28 | NUR ---
DR CALLED RT TO HAVE ANASTASIIA ENT PLACED ON BI PAP
--- NOTE | 2019-07-05 15:34 | NUR ---
RT HERE TO PLACE ON BI PAP
[2019-07-05] MEDS ORDERED: LORazepam INJ 2 MG/ML (ATIVAN) VIAL IVP ONE (15:45)
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
--- NOTE | 2019-07-05 16:36 | NUR ---
WAITING FOR [facility] TO CALL BACK WITH BED.
--- NOTE | 2019-07-05 16:48 | NUR ---
TO ROOM PATIENT RESTING FEELING BETTER MONITOR ST. SA02 98% BY BI PAP
--- NOTE | 2019-07-05 17:16 | NUR ---
REPORT CALLED TO MAHIN
--- NOTE | 2019-07-05 17:35 | NUR ---
EMS HERE FOR TRANSFER.
--- NOTE | 2019-07-05 17:45 | NUR ---
DAUGHTER CALLED GAVE HER A UP DATE.
[2019-07-05 17:46] VITALS: BP 140/80
== END 2019-07-05 18:09 | disposition short-term general hospital (02) ==
LOC: EDUNIT# 13:27 → ER 13:28
DX: J44.1 Chronic obstructive pulmonary disease with (acute) exacerbation (principal); R09.02 Hypoxemia; E11.22 Type 2 diabetes mellitus with diabetic chronic kidney disease; I12.0 Hypertensive chronic kidney disease with stage 5 chronic kidney disease or end stage renal disease; N18.6 End stage renal disease; R00.8 Other abnormalities of heart beat; J44.9 Chronic obstructive pulmonary disease, unspecified; E11.40 Type 2 diabetes mellitus with diabetic neuropathy, unspecified; E78.00 Pure hypercholesterolemia, unspecified; I25.10 Atherosclerotic heart disease of native coronary artery without angina pectoris; G47.30 Sleep apnea, unspecified; F41.9 Anxiety disorder, unspecified; F32.9 Major depressive disorder, single episode, unspecified; D64.9 Anemia, unspecified; E66.9 Obesity, unspecified; Z86.718 Personal history of other venous thrombosis and embolism; Z99.89 Dependence on other enabling machines and devices; Z86.711 Personal history of pulmonary embolism; Z99.2 Dependence on renal dialysis; Z88.2 Allergy status to sulfonamides; Z88.8 Allergy status to other drugs, medicaments and biological substances; Z79.01 Long term (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 of anticoagulants; Z79.82 Long term (current) use of aspirin; Z79.51 Long term (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 of inhaled steroids; Z90.49 Acquired absence of other specified parts of digestive tract; Z90.710 Acquired absence of both cervix and uterus; Z87.440 Personal history of urinary (tract) infections; Z68.34 Body mass index [BMI] 34.0-34.9, adult
CPT/HCPCS: 36415; 71045; 80053; 83605; 85025; 85610; 85730; 87040; 87804; 93005; 94640; 94660; 96374; 96375

== ENCOUNTER 2019-07-28 08:11 | Emergency (ER) | payer MEDICARE, MEDICAID ==
[~2019-07-28] VITALS: Ht 162.5 cm; Wt 86.3 kg
[~2019-07-28 08:11] MED LIST changes: +NFD60TCR PO; -NIFE60TA74 PO
[2019-07-28] MEDS ORDERED: HYDROcodone/APAP 5 MG/325 MG (LORTAB) TAB PO ONE (08:30)
[2019-07-28] MEDS ORDERED: RT-ALBUTEROL/IPRATROPIUM 3 ML (DUONEB) VIAL INH ONE (08:30)
[2019-07-28] MEDS ORDERED: SODIUM BICARB 8.4% 50 MEQ/50 ML VIAL IV ONE (08:30)
[2019-07-28] MEDS ORDERED: TETANUS,DIPTH,PERTUSS P/F (BOOSTRIX) 0.5 ML VIAL IM ONE (08:30)
[2019-07-28] MEDS ORDERED: LIDOCAINE/EPI 2% 1:100,00 (XYLOCAINE) 20 ML VIAL INJ ONE (08:30)
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
--- NOTE | 2019-07-28 09:11 | Diagnostic Imaging Report ---
HISTORY: Trauma, fall TECHNIQUE: Frontal view of the pelvis. COMPARISON: None FINDINGS: There is diffuse osteopenia. No acute fracture or dislocation is seen in the pelvis. Alignment appears normal. There is mild degenerative change in the bilateral hips. Degenerative changes also noted in the lower lumbar spine. Phleboliths and calcific atherosclerosis are noted. Multiple surgical clips are noted in the abdomen. IMPRESSION: 1. No acute osseous abnormality is seen in the pelvis. Dictated by: Dictated on workstation # [id number]
--- NOTE | 2019-07-28 09:16 | Diagnostic Imaging Report ---
INDICATION: Fall, pain. FINDINGS: Arthritic changes to the wrist and visualized hand. There was no substantial focal soft tissue swelling radiographically apparent. There is bony demineralization and atherosclerotic vascular calcifications. The articular surfaces were smooth. There is some mild buckling and contour deformity at the dorsal cortex of the distal radial metaphysis but this may be chronic. Correlate with any potential point tenderness to that site. No other potential injury is found. IMPRESSION: No convincing evidence for fracture. Slight undulation and buckling of the dorsal distal radial metadiaphyseal cortex without obvious regional swelling but correlate with any potential focal point tenderness to that site. Otherwise negative. Dictated by: Dictated on workstation # [id number]
--- NOTE | 2019-07-28 09:17 | Diagnostic Imaging Report ---
INDICATION: Left lower leg pain. AP and lateral views of the left tibia-fibula show no fracture, dislocation or other acute abnormalities. There are degenerative changes noted in the knee. IMPRESSION: No acute abnormality seen in the left tibia-fibula. Dictated by: Dictated on workstation # [id number]
--- NOTE | 2019-07-28 09:24 | Diagnostic Imaging Report ---
INDICATION: Left hand pain. FINDINGS: 3 views of left hand show no fracture, dislocation or other acute abnormalities. IMPRESSION: Negative left hand. Dictated by: Dictated on workstation # [id number]
[2019-07-28] MEDS ORDERED: ACHD5005 PO (10:02)
--- NOTE | 2019-07-28 10:22 | NUR ---
Called Kerri at dialysis center re: transportaion. Kerri to call pt's transportation service.
[2019-07-28 10:28] VITALS: BP 131/43
--- NOTE | 2019-07-28 10:29 | NUR ---
15 sutures 4.0 prolene to 8cm laceration of L aranda
== END 2019-07-28 10:42 | disposition home or self-care (01) ==
LOC: EDUNIT# 08:11 → ER 08:12
DX: S81.812A Laceration without foreign body, left lower leg, initial encounter (principal); S69.92XA Unspecified injury of left wrist, hand and finger(s), initial encounter; J44.9 Chronic obstructive pulmonary disease, unspecified; I10 Essential (primary) hypertension; E78.00 Pure hypercholesterolemia, unspecified; I25.10 Atherosclerotic heart disease of native coronary artery without angina pectoris; E11.40 Type 2 diabetes mellitus with diabetic neuropathy, unspecified; F41.9 Anxiety disorder, unspecified; F32.9 Major depressive disorder, single episode, unspecified; D64.9 Anemia, unspecified; E66.9 Obesity, unspecified; Z87.19 Personal history of other diseases of the digestive system; Z86.711 Personal history of pulmonary embolism; Z99.2 Dependence on renal dialysis; Z87.440 Personal history of urinary (tract) infections; Z86.718 Personal history of other venous thrombosis and embolism; Z90.49 Acquired absence of other specified parts of digestive tract; Z90.710 Acquired absence of both cervix and uterus; Z88.2 Allergy status to sulfonamides; Z68.32 Body mass index [BMI] 32.0-32.9, adult; Z88.8 Allergy status to other drugs, medicaments and biological substances; Z88.0 Allergy status to penicillin; Z79.01 Long term (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 of anticoagulants; Z79.82 Long term (current) use of aspirin; Z79.51 Long term (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 of inhaled steroids; Z23 Encounter for immunization; Z82.49 Family history of ischemic heart disease and other diseases of the circulatory system; W05.0XXA Fall from non-moving wheelchair, initial encounter
CPT/HCPCS: 12015; 72170; 73110; 73130; 73590; 90715

== ENCOUNTER 2019-11-22 10:30 | Emergency (ER) | payer MEDICARE, MEDICAID ==
[~2019-11-22] VITALS: Ht 162 cm; Wt 104.0 kg
[~2019-11-22 10:30] MED LIST changes: +ACHD5005 PO; -GUAI400T71 PO; +GUAI400T86 PO; +NS IV 500 ML 500 ML ONE
[2019-11-22] MEDS ORDERED: fentaNYL INJECTION 100 MCG/2 ML AMP IVP ONE (10:45)
[2019-11-22] MEDS ORDERED: NS (IVPB) 250 ML IV ONE (10:45)
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
--- NOTE | 2019-11-22 11:23 | Diagnostic Imaging Report ---
INDICATION: Weakness COMPARISON: 07/05/2019 FINDINGS: Single frontal view of the chest demonstrates interval development of moderate enlargement of the cardiac silhouette. Prominent vasculature is within normal limits. Lungs are clear. There is no focal consolidation, large effusion, nor pneumothorax. There is calcified aortic atherosclerosis. Osseous structures show no gross acute abnormalities. IMPRESSION: 1. Interval development of moderate enlargement cardiac silhouette. Findings could be on the basis of new cardiomegaly, although underlying pericardial effusion should also be considered. Correlation with echocardiogram is advised. Dictated by: Dictated on workstation # [id number]
--- NOTE | 2019-11-22 11:49 | Diagnostic Imaging Report ---
PROCEDURE: CT abdomen and pelvis without contrast. TECHNIQUE: Multiple contiguous axial images were obtained through the abdomen and pelvis without the use of intravenous contrast. Auto Exposure Controls were utilized during the CT exam to meet ALARA standards for radiation dose reduction. INDICATION: Weakness and stomach pain. COMPARISON: 12/22/2017. FINDINGS: There is atelectasis and scarring in the lung bases. The heart is large and there is significant calcification of the mitral annulus. The liver demonstrates no focal lesions. There are multiple nonspecific hypodense lesions in the spleen. The pancreas is mildly atrophic. The adrenal glands appear normal. The kidneys are atrophic with no hydronephrosis or calculi seen. There is motion artifact throughout the exam. The appendix is not seen. The stomach is decompressed. There is diverticulosis throughout the colon. There is focal wall thickening of the loop of small bowel which contains fecalized stool contents (image 58 series 2), with edema in the adjacent mesentery. Varices are noted in the left upper abdomen. No free fluid or free air seen. There is extensive calcific atherosclerosis. No acute osseous abnormality is seen. IMPRESSION: 1. Focal small bowel wall thickening with surrounding edema, may represent enteritis. No free air or fluid collection is seen. 2. Hypodense lesions in the spleen appear chronic, but are more conspicuous on today's exam compared to prior studies. If the patient cannot tolerate contrast, consider nonemergent ultrasound for follow-up. 3. Colonic diverticulosis without diverticulitis seen. Dictated by: Dictated on workstation # [id number]
[2019-11-22 11:51] LABS: BASOPHILS # (AUTO) 0.1 10^3/uL (0.0-0.1); BASOPHILS % (AUTO) 0 % (0-10); EOSINOPHILS # (AUTO) 0.3 10^3/uL (0.0-0.3); EOSINOPHILS % (AUTO) 2 % (0-10); HEMATOCRIT 39 % (35-52); HEMOGLOBIN 12.3 G/DL (11.5-16.0); LYMPHOCYTES # (AUTO) 1.5 X 10^3 (1.0-4.0); LYMPHOCYTES % (AUTO) 10 % (12-44); MEAN CORPUSCULAR HEMOGLOBIN 31 PG (25-34); MEAN CORPUSCULAR HGB CONC 32 G/DL (32-36); MEAN CORPUSCULAR VOLUME 98 FL (80-99); MEAN PLATELET VOLUME 13.3 FL (7.4-10.4); MONOCYTES # (AUTO) 1.4 X 10^3 (0.0-1.0); MONOCYTES % (AUTO) 10 % (0-12); NEUTROPHILS # (AUTO) 11.8 X 10^3 (1.8-7.8); NEUTROPHILS % (AUTO) 78 % (42-75); PLATELET COUNT 78 10^3/uL (130-400); RED CELL DISTRIBUTION WIDTH 16.2 % (10.0-14.5); WHITE BLOOD COUNT 15.2 10^3/uL (4.3-11.0)
[2019-11-22 12:08] LABS: ALBUMIN 3.1 GM/DL (3.2-4.5)
[2019-11-22 12:09] LABS: POTASSIUM 4.5 MMOL/L (3.6-5.0)
[2019-11-22 12:10] LABS: CALCIUM 9.9 MG/DL (8.5-10.1)
[2019-11-22 12:11] LABS: TOTAL PROTEIN 6.1 GM/DL (6.4-8.2)
[2019-11-22 12:13] LABS: BILIRUBIN,TOTAL 0.7 MG/DL (0.1-1.0)
[2019-11-22 12:15] LABS: CREATININE SERUM 4.97 MG/DL (0.60-1.30)
[2019-11-22 12:24] LABS: ANISOCYTOSIS SLIGHT; BAND NEUTROPHILS 2 %; BASOPHILS % (MANUAL) 0 %; EOSINOPHILS % (MANUAL) 1 %; LYMPHOCYTES % (MANUAL) 11 %; MONOCYTES % (MANUAL) 6 %; NEUTROPHILS % (MANUAL) 80 %
[2019-11-22] MEDS ORDERED: LORazepam INJ 2 MG/ML (ATIVAN) VIAL IVP PRN (13:00)
--- NOTE | 2019-11-22 13:21 | NUR ---
Called dispatch for transportation to [place] at this time.
--- NOTE | 2019-11-22 13:26 | NUR ---
REPORT TO KENDALL STOCKTON
--- NOTE | 2019-11-22 13:36 | NUR ---
CONSENT FOR TRANSFER SIGNED
[2019-11-22 13:41] VITALS: BP 96/65
== END 2019-11-22 13:53 | disposition short-term general hospital (02) ==
LOC: EDUNIT# 10:32 → ER 10:33
DX: E11.22 Type 2 diabetes mellitus with diabetic chronic kidney disease (principal); I12.0 Hypertensive chronic kidney disease with stage 5 chronic kidney disease or end stage renal disease; N18.6 End stage renal disease; R10.13 Epigastric pain; I95.9 Hypotension, unspecified; J44.9 Chronic obstructive pulmonary disease, unspecified; E11.40 Type 2 diabetes mellitus with diabetic neuropathy, unspecified; E78.00 Pure hypercholesterolemia, unspecified; I25.10 Atherosclerotic heart disease of native coronary artery without angina pectoris; F41.9 Anxiety disorder, unspecified; F32.9 Major depressive disorder, single episode, unspecified; E66.9 Obesity, unspecified; Z86.718 Personal history of other venous thrombosis and embolism; Z99.2 Dependence on renal dialysis; Z88.2 Allergy status to sulfonamides; Z79.84 Long term (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 of oral hypoglycemic drugs; Z79.82 Long term (current) use of aspirin; Z86.711 Personal history of pulmonary embolism; Z79.01 Long term (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 of anticoagulants; Z79.51 Long term (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 of inhaled steroids
CPT/HCPCS: 36415; 71045; 74176; 80053; 83690; 85007; 85027; 93005

== ENCOUNTER 2020-01-07 13:39 | Emergency (ER) | payer MEDICARE, MEDICAID ==
[~2020-01-07] VITALS: Ht 162.5 cm; Wt 90.9 kg
[~2020-01-07 13:39] MED LIST changes: -NS IV 500 ML 500 ML ONE
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
[2020-01-07 14:08] LABS: BASOPHILS % (AUTO) 0 % (0-10); EOSINOPHILS # (AUTO) 0.1 10^3/uL (0.0-0.3); EOSINOPHILS % (AUTO) 1 % (0-10); HEMATOCRIT 38 % (35-52); HEMOGLOBIN 11.7 G/DL (11.5-16.0); LYMPHOCYTES # (AUTO) 1.3 X 10^3 (1.0-4.0); LYMPHOCYTES % (AUTO) 10 % (12-44); MEAN CORPUSCULAR HEMOGLOBIN 32 PG (25-34); MEAN CORPUSCULAR HGB CONC 31 G/DL (32-36); MEAN CORPUSCULAR VOLUME 103 FL (80-99); MEAN PLATELET VOLUME 11.7 FL (7.4-10.4); MONOCYTES # (AUTO) 0.9 X 10^3 (0.0-1.0); MONOCYTES % (AUTO) 7 % (0-12); NEUTROPHILS # (AUTO) 10.4 X 10^3 (1.8-7.8); NEUTROPHILS % (AUTO) 82 % (42-75); PLATELET COUNT 87 10^3/uL (130-400); RED CELL DISTRIBUTION WIDTH 19.1 % (10.0-14.5); WHITE BLOOD COUNT 12.7 10^3/uL (4.3-11.0)
[2020-01-07 14:33] LABS: ALBUMIN 2.9 GM/DL (3.2-4.5); BILIRUBIN,TOTAL 0.5 MG/DL (0.1-1.0); CALCIUM 8.8 MG/DL (8.5-10.1); CREATININE SERUM 6.37 MG/DL (0.60-1.30); TOTAL PROTEIN 5.8 GM/DL (6.4-8.2)
--- NOTE | 2020-01-07 14:47 | Diagnostic Imaging Report ---
INDICATION: Low blood sugar. EXAMINATION: Upright portable chest was obtained. FINDINGS: Cardiomegaly with mild pulmonary venous distention. There ar patchy perihilar infiltrates. There is no effusion or pneumothorax. IMPRESSION: There is cardiomegaly with vascular congestion and possible mild perihilar edema, which is a change from the 11/22/2019 study. Recommend follow-up. Dictated by: Dictated on workstation # [id number]
--- NOTE | 2020-01-07 15:05 | NUR ---
EMS INFORMED ABOUT TRANSFER. Addendum: 01/07/20 at 1520 by PMCCLURE DAUGHTER INFORMED ABOUT TRANSFER
[2020-01-07] MEDS ORDERED: NS IV 500 ML 500 ML IV SCH (15:15)
[2020-01-07 15:54] VITALS: BP 103/43
--- NOTE | 2020-01-07 15:58 | NUR ---
CON'T TO WAIT FOR ROOM AT [facility]
--- NOTE | 2020-01-07 16:25 | NUR ---
PATIENT TURNED TO SIDE.
[2020-01-07 16:59] VITALS: BP 117/59
[2020-01-07] MEDS ORDERED: NS IV 500 ML 500 ML ONE (17:12)
== END 2020-01-07 17:00 | disposition short-term general hospital (02) ==
LOC: EDUNIT# 13:39 → ER 13:40
DX: E87.79 Other fluid overload (principal); E11.22 Type 2 diabetes mellitus with diabetic chronic kidney disease; N18.6 End stage renal disease; K52.9 Noninfective gastroenteritis and colitis, unspecified; Z99.2 Dependence on renal dialysis; J44.9 Chronic obstructive pulmonary disease, unspecified; I25.10 Atherosclerotic heart disease of native coronary artery without angina pectoris; E78.00 Pure hypercholesterolemia, unspecified; E11.51 Type 2 diabetes mellitus with diabetic peripheral angiopathy without gangrene; Z86.711 Personal history of pulmonary embolism; Z79.82 Long term (current) use of aspirin; Z79.899 Other long term (current) drug therapy; Z88.0 Allergy status to penicillin; Z88.8 Allergy status to other drugs, medicaments and biological substances; Z88.2 Allergy status to sulfonamides; E11.40 Type 2 diabetes mellitus with diabetic neuropathy, unspecified; M19.90 Unspecified osteoarthritis, unspecified site; M54.9 Dorsalgia, unspecified; F41.9 Anxiety disorder, unspecified; F32.9 Major depressive disorder, single episode, unspecified; L40.9 Psoriasis, unspecified; I77.89 Other specified disorders of arteries and arterioles; Z86.718 Personal history of other venous thrombosis and embolism
CPT/HCPCS: 36415; 71045; 80053; 85025; 93005